=== PATIENT | female | born 2000 | race Caucasian/White ===

== ENCOUNTER 2022-11-29 21:47 | Outpatient (REF) | payer OTHER, SELFPAY ==
[2022-12-03 15:08] LABS: Age Gdln ACOG Testing Note (.); IGP, rfx Aptima HPV ASCU Note (.)
== END 2022-11-29 21:48 | disposition home or self-care (01) ==
LOC: LAB 21:47
PROVIDERS: Visit Provider Physician Assistant
DX: Z12.4 Encounter for screening for malignant neoplasm of cervix (principal)
CPT/HCPCS: G0145

== ENCOUNTER 2023-12-12 19:44 | Outpatient (REF) | payer OTHER, SELFPAY | END 2023-12-12 19:45 | disposition home or self-care (01) | LOC: LAB 19:44 | PROVIDERS: Visit Provider Obstetrics & Gynecology | DX: Z01.419 Encounter for gynecological examination (general) (routine) without abnormal findings (principal) | CPT/HCPCS: 88175 ==

== ENCOUNTER 2024-08-21 10:30 | Outpatient (OUT) | payer BC, SELFPAY ==
--- OUTSIDE RECORDS SUMMARY | 2024-08-21 10:54 | XMS_ITS | CCD ---
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 Name Role Phone JOANNA, DR VILLATORO Admitting Unavailable JOANNA, DR VILLATORO Attending Unavailable MISC, DR LAURA Primary Care Unavailable JOANNA, DR VILLATORO Admitting Unavailable JOANNA, DR VILLATORO Attending Unavailable MISC, DR LAURA Primary Care Unavailable JONANA, DR VILLATORO Consulting Unavailable JOANNA, DR VILLATORO Admitting Unavailable JOANNA, DR VILLATORO Consulting Unavailable JOANNA, DR IVLLATORO Attending Unavailable ZIEBER, DR LILIANE Jaimes Consulting Unavailable JOANNA, DR VILLATORO Admitting Unavailable JOANNA, DR VILLATORO Attending Unavailable JOANNA, DR VILLATORO Attending Unavailable JOANNA, DR VILLATORO Admitting Unavailable MISC, DR LAURA Primary Care Unavailable JOANNA, DR VILLATORO Consulting Unavailable JOANNA, DR VILLATORO Admitting Unavailable JOANNA, DR VILLATORO Attending Unavailable MISC, DR LAURA Primary Care Unavailable JOANNA, DR VILLATORO Consulting Unavailable MISC, DR LAURA Primary Care Unavailable JOANNA, DR VILLATORO Admitting Unavailable JOANNA, DR VILLATORO Attending Unavailable JOANNA, DR VILLATORO Consulting Unavailable KARASIK, DR ZIMMERMAN Admitting Unavailable KARASIK, DR ZIMMERMAN Attending Unavailable KARASIK, DR ZIMMERMAN Consulting Unavailable MISC, DR LAURA Primary Care Unavailable JOANNA, DR VILLATORO Admitting Unavailable JOANNA, DR VILLATORO Attending Unavailable MISC, DR LAURA Primary Care Unavailable JOANNA, DR VILLATORO Consulting Unavailable JOANNA, DR VILLATORO Admitting Unavailable JOANNA, DR VILLATORO Attending Unavailable JOANNA, DR VILLATORO Consulting Unavailable JOANNA, DR VILLATORO Admitting Unavailable JOANNA, DR VILLATORO Attending Unavailable MISC, DR LAURA Primary Care Unavailable Ritu Desai Primary Care Physician [phone] Ya Thornton Primary Care Physician Norberto, Ya L Admitting Unavailable Norberto, Ya L Attending Unavailable Agueda Gray Attending Unavailable Norberto, Ya L Attending Unavailable Norberto, Ya L Attending Unavailable Norberto, Ya L Attending Unavailable Norberto, Ya L Attending Unavailable Norberto, Ya L Attending Unavailable Norberto, Ya L Attending Unavailable OPAL LUZ Attending Unavailable Norberto, Ya L Admitting Unavailable Norberto, Ya L Attending Unavailable Norberto, Ya L Attending Unavailable Norberto, Ya L Admitting Unavailable Norberto, Ya L Attending Unavailable Norberto, Ya L Admitting Unavailable Norberto, Ya L Admitting Unavailable Norberto, Ya L Attending Unavailable Norberto, Ya L Admitting Unavailable Norberto, Ya L Attending Unavailable Norberto, Ya L Attending Unavailable Norberto, Ya L Referring Unavailable Norberto, Ya L Admitting Unavailable Carrillo White MD Primary Care Provider Carmita Jurado MD Unavailable CARMITA JURADO Referring Unavailable CARMITA JURADO Attending Unavailable Ya Thornton Primary Care Physician Marta Almanzar Attending Unavailable Marta Almanzar Admitting Unavailable Marta Almanzar Attending Unavailable Norberto, Ya L Admitting Unavailable Nancy Thorntonzabeth L Attending Unavailable Marta Almanzar Attending Unavailable Ham Robins Attending Unavailable Ham Robins Attending Unavailable Marta Almanzar Attending Unavailable Marta Almanzar Admitting Unavailable SANTOSH MARSHALL Attending Unavailable Medications Current Medications Medication Drug Class(es) Dates Sig (Normalized) Sig (Original) cephalexin 500 mg oral capsule (2 sources) Cephalosporin Antibacterial Start: 03-09-2023 End: 03-16-2023 take 1 capsule by mouth four times daily Keflex 500 mg Cap 500 mg = 1 cap(s), Oral, QID, X 7 day(s), # 28 cap(s), Refills(s) 0, Pharmacy: [facility] #37, 166, cm, 03/09/23 7:33:00 EST, Height/Length Dosing, 58.7, kg, 03/09/23 7:33:00 EST, Weight Dosing Start Date: 03/09/23 Stop Date: 03/16/23 Status: Ordered Colace (1 source) Start: 11-30-2022 Colace Refills(s) 0 Start Date: 11/30/22 Status: Ordered Flonase (3 sources) Corticosteroid Start: 09-10-2018 Flonase Nasal, Daily, Refill(s) 0 Start Date: 09/10/18 Status: Ordered hydrocortisone acetate 0.025 mg/mg / lidocaine hydrochloride 0.03 mg/mg rectal gel (2 sources) Antiarrhythmic, Corticosteroid, Amide Local Anesthetic Start: 11-19-2022 hydrocortisone-l idocaine 2.5%-3% rectal gel with applicator 1 carmen, Rectal, BID, 60 EA, Refill(s) 1, [facility] #[id number], 166, cm, 11/11/22 9:28:00 EDT, Height/Length Dosing, 59.4, kg, 11/11/22 9:28:00 EDT, Weight Dosing Start Date: 11/19/22 Status: Ordered Start: 11-11-2022 hydrocortisone -lidocaine 2.5%-3% rectal gel with applicator 1 carmen, Rectal, BID, 60 EA, Refill(s) 1, [facility] #[facility], 166, cm, 11/11/22 9:28:00 EDT, Height/Length Dosing, 59.4, kg, 11/11/22 9:28:00 EDT, Weight Dosing Start Date: 11/11/22 Status: Ordered levothyroxine sodium 0.1 mg oral tablet (19 sources) l-Thyroxine Start: 06-19-2024 take 1 tablet by mouth once daily Synthroid 100 mcg Tab 100 mcg = 1 tab(s), Oral, Daily, # 90 tab(s), Refills(s) 0, Pharmacy: [facility] #37, 166, cm, 08/08/23 15:44:00 EDT, Height/Length Dosing, 56.1, kg, 08/08/23 15:51:00 EDT, Weight Dosing Start Date: 06/19/24 Status: Ordered Quantity: 90.0 Unit: tab(s) Repeat number: 1 Start: 06-19-2024 take 1 tablet by stephanie th once daily levothyroxine (Synthroid, Levoxyl) 100 MCG tablet Take 100 mcg by mouth Daily 06/19/2024 Active Start: 05-16-2023 take 1 tablet by stephanie th once daily Synthroid 100 mcg Tab 100 mcg = 1 tab(s), Oral, Daily, # 90 tab(s), Refills(s) 1, Pharmacy: [facility] #37, 166, cm, 05/16/23 14:25:00 EST, Height/Length Dosing, 56.7, kg, 05/16/23 14:25:00 EST, Weight Dosing Start Date: 05/16/23 Status: Ordered Start: 02-07-2023 take 1 tablet by stephanie th once daily Synthroid 112 mcg Tab 112 mcg = 1 tab(s), Oral, Daily, # 60 tab(s), Refills(s) 0, Pharmacy: [facility] #[facility], 166, cm, 11/30/22 12:12:00 EDT, Height/Length Dosing, 58.8, kg, 11/30/22 12:12:00 EDT, Weight Dosing Start Date: 02/07/23 Status: Ordered Start: 10-08-2022 take 1 tablet by stephanie once daily Synthroid 112 mcg Tab 112 mcg = 1 tab(s), Oral, Daily, # 60 tab(s), Refills(s) 0, Pharmacy: [facility] #37, 166, cm, 10/08/22 15:10:00 EDT, Height/Length Dosing, 57.8, kg, 10/08/22 15:10:00 EDT, Weight Dosing Start Date: 10/08/22 Status: Ordered Start: 10-08-2022 End: 08-17-2024 take 1 tablet by mouth in the morning levothyroxine (Synthroid, Levoxyl) 112 MCG tablet Take 112 mcg by mouth in the morning. 10/08/2022 08/17/2024 Discontinued Start: 05-03-2022 take 1 tablet by stephanie th once daily levothyroxine 125 mcg (0.125 mg) Tab 125 mcg = 1 tab(s), Oral, Daily, # 90 tab(s), Refills(s) 3, Pharmacy: [facility] #37, 166, cm, 05/03/22 14:21:00 EST, Height/Length Dosing, 61.2, kg, 05/03/22 14:21:00 EST, Weight Dosing Start Date: 05/03/22 Status: Ordered loratadine 10 mg oral tablet (13 sources) Start: 12-05-2019 take 1 tablet by mouth once daily Claritin 10 mg Tab 10 mg, Oral, Daily, # 10 tab(s), Refills(s) 0, Pharmacy: [facility] #37, 166, cm, 12/05/19 13:03:00 EDT, Height/Length Dosing, 61.6, kg, 12/05/19 13:03:00 EDT, Weight Dosing Start Date: 12/05/19 Status: Ordered Quantity: 10.0 Unit: tab(s) Repeat number: 1 magnesium oxide 400 mg oral tablet (1 source) Start: 08-17-2024 End: 09-16-2024 take 1 tablet by mouth once daily magnesium oxide (Mag-Ox) 400 MG tablet Indications: Nonintractable headache, unspecified chronicity pattern, unspecified headache type Take 1 tablet (400 mg) by mouth Daily 30 tablet 6 08/17/2024 09/16/2024 Active nitrofurantoin, macrocrystals 25 mg / nitrofurantoin, monohydrate 75 mg oral capsule (2 sources) Nitrofuran Antibacterial Start: 02-21-2023 End: 02-26-2023 take 1 capsule by mouth every twelve hours Macrobid 100 mg Cap 100 mg = 1 cap(s), Oral, q12hr, X 5 day(s), # 10 cap(s), Refills(s) 0, Pharmacy: [facility] #37, 166, cm, 02/21/23 13:06:00 EST, Height/Length Dosing, 58.6, kg, 02/21/23 13:06:00 EST, Weight Dosing Start Date: 02/21/23 Stop Date: 02/26/23 Status: Ordered phenazopyridine hydrochloride 200 mg oral tablet (4 sources) Start: 03-09-2023 End: 03-12-2023 take 1 tablet by mouth three times daily Pyridium 200 mg Tab 200 mg = 1 tab(s), Oral, TID, X 3 day(s), # 9 tab(s), Refills(s) 0, Pharmacy: [facility] #37, 166, cm, 03/09/23 7:33:00 EST, Height/Length Dosing, 58.7, kg, 03/09/23 7:33:00 EST, Weight Dosing Start Date: 03/09/23 Stop Date: 03/12/23 Status: Ordered Start: 02-21-2023 End: 02-24-2023 take 1 tablet by mouth three times daily Pyridium 200 mg Tab 200 mg = 1 tab(s), Oral, TID, X 3 day(s), # 9 tab(s), Refills(s) 0, Pharmacy: [facility] #37, 166, cm, 02/21/23 13:06:00 EST, Height/Length Dosing, 58.6, kg, 02/21/23 13:06:00 EST, Weight Dosing Start Date: 02/21/23 Stop Date: 02/24/23 Status: Ordered polyethylene glycol 3350 635275 mg / potassium chloride 1480 mg / sodium bicarbonate 5720 mg / sodium chloride 53111 mg powder for oral solution (11 sources) Osmotic Laxative Start: 11-30-2022 NuLYTELY Lauren ry oral powder for reconstitution See Instructions, 1 EA, Refill(s) 0, Prior to colonoscopy., [facility] #[id number], 166, cm, 11/30/22 12:12:00 EDT, Height/Length Dosing, 58.8, kg, 11/30/22 12:12:00 EDT, Weight Dosing Start Date: 11/30/22 Status: Ordered Quantity: 1.0 Unit: EA Repeat number: 1 Problems Active Problems Problem Classification Problem Date Documented Da te Episodic/Chronic Abdominal pain (13 sources) Abdominal pain 09-29-2020 Episodic Bacterial infection; unspecified site (1 source) Infection due to Escherichia coli; Translations: [Unspecified Escherichia coli [E. coli] as the cause of diseases classified elsewhere] Onset: 03-24-2023 Episodic Diabetes or abnormal glucose tolerance complicating ; childbirth; or the puerperium (12 sources) History of gestational diabetes mellitus 10-08-2022 Episodic Genitourinary symptoms and ill-defined conditions (4 sources) Dysuria; Translations: [Dysuria] Onset: 02-21-2023 Episodic Headache; including migraine (13 sources) Migraine without aura 06-30-2020 Chronic Headache; including migraine (6 sources) Headache; Translations: [Nonintractable headache, unspecified chronicity pattern, unspecified headache type] 11-19-2020 Episodic Hemorrhoids (15 sources) Hemorrhoids; Translations: [Unspecified hemorrhoids] Onset: 11-11-2022 Episodic Immunizations and screening for infectious disease (2 sources) Encounter for screening for human papillomavirus (HPV); Translations: [Contact with and (suspected) exposure to infections with a predominantly sexual mode of transmission] Onset: 12-19-2020 Episodic Inflammation; infection of eye (except that caused by tuberculosis or sexually transmitteddisease) (4 sources) Hordeolum 10-08-2022 Episodic Menstrual disorders (15 sources) Dysmenorrhea; Translations: [Dysmenorrhea, unspecified] Onset: 08-08-2023 08-12-2020 Chronic Other endocrine disorders (4 sources) Hypoglycemia 10-08-2022 Chronic Other eye disorders (4 sources) Eye symptom 10-08-2022 Episodic Other female genital disorders (4 sources) Lesion of labia 05-16-2023 Episodic Other female genital disorders (1 source) Noninflammatory disorder of vulva; Translations: [Other specified noninflammatory disorders of vulva and perineum] Onset: 08-08-2023 Episodic Other gastrointestinal disorders (4 sources) Constipation 10-08-2022 Episodic Other gastrointestinal disorders (1 source) Digestive system finding; Translations: [Other specified symptoms and signs involving the digestive system and abdomen] Onset: 11-30-2022 Episodic Other gastrointestinal disorders (1 source) Constipation, unspecified; Translations: [Constipation, unspecified] Onset: 02-21-2023 Episodic Other inflammatory condition of skin (4 sources) Pruritus ani; Translations: [Pruritus ani] Onset: 11-30-2022 Episodic Other lower respiratory disease (13 sources) H/O: respiratory disease 06-30-2020 Episodic Other nutritional; endocrine; and metabolic disorders (12 sources) Weight loss 10-08-2022 Episodic Other nutritional; endocrine; and metabolic disorders (1 source) Abnormal weight loss; Translations: [Abnormal weight loss] Onset: 11-30-2022 Episodic Other and delivery including normal (18 sources) Encounter for supervision of normal first , first trimester; Translations: [Encounter for supervision of normal , unspecified, unspecified trimester] Onset: 12-02-2020 Episodic Other screening for suspected conditions (not mental disorders or infectious disease) (9 sources) Encounter for screening for malignant neoplasm of cervix; Translations: [Encounter for screening, unspecified] Onset: 12-09-2020 Episodic Residual codes; unclassified (3 sources) Body mass index 20-24 - normal; Translations: [Body mass index (BMI) 21.0-21.9, adult] Onset: 11-11-2022 Episodic Residual codes; unclassified (1 source) Family history of malignant neoplasm of digestive organ; Translations: [Family history of malignant neoplasm of digestive organs] Onset: 11-30-2022 Episodic Residual codes; unclassified (11 sources) Family history of cancer of colon 11-30-2022 Episodic Residual codes; unclassified (1 source) Family history of autism; Translations: [Family history of other mental and behavioral disorders] 05-14-2024 Episodic Thyroid disorders (20 sources) Hypothyroidism, unspecified; Translations: [Hypothyroidism] Onset: 02-28-2021 Chronic Thyroid disorders (5 sources) Disorder of thyroid, unspecified; Translations: [DISORDER OF THYROID UNSPECIFIED] Onset: 12-19-2020 Episodic Unclassified (13 sources) Body mass index 20-24 - normal 11-19-2020 Unclassified (13 sources) Non-smoker 06-30-2020 Unclassified (5 sources) Pain of knee region 09-29-2020 Unclassified (8 sources) Patient encounter status 10-08-2022 Unclassified (3 sources) Rectum finding 11-30-2022 Unclassified (8 sources) Finding of sensation of bladder 03-09-2023 Urinary tract infections (13 sources) Acute cystitis; Translations: [Acute cystitis without hematuria] Onset: 02-21-2023 Episodic Past or Other Problems Problem Classification Problem Date Documented Date Episodic/Chronic Other complications of (4 sources) Endocrine, nutritional and metabolic diseases complicating , unspecified trimester; Translations: [ENDOCRN NUTR MET DZ COMP PG UNS TRI] Onset: 02-24-2021 Episodic Other female genital disorders (4 sources) Other specified noninflammatory disorders of vagina; Translations: [OTH SPEC NONINFLAMMATORY D/O VAGINA] Onset: 07-13-2021 Episodic Results Test Name Value Interpretation Reference Range Facil ity HCG ( test) Ql (U)o n 08-17-2024 Interpretation and review of laboratory results Abnormal [facility] Preg Test, Ur Positive Negative [facility] US OB TRANSVAGINALon 025 US OB TRANSVAGINAL EXAM: US OB TRANSVAGINAL HISTORY: Dating. COMPARISON: None available. TECHNIQUE: Two-dimensional transvaginal grayscale ultrasound imaging of the pelvis was performed. Color Doppler evaluation of the ovaries was also performed. FINDINGS: The uterus demonstrates a normal homogeneous echotexture. The cervix measures 4.0 cm in length and the cervical os is closed. The right ovary measures 2.7 x 1.2 x 2.3 cm and demonstrates a normal echotexture. There is normal color Doppler flow. The left ovary measures 2.9 x 1.8 x 2.4 cm and demonstrates a normal echotexture. There is normal color Doppler flow. There is a presumed corpus luteal cyst visualized. No fluid is present within the cul-de-sac. There is a single, live intrauterine gestation identified with a heart rate of 173 beats per minute and a crown-rump length measurement of 2.1 cm, correlating to a gestational age of 8 weeks 5 days (+/- 5 days). There is no subchorionic hemorrhage visualized. A yolk sac is visualized. IMPRESSION: 1. Single, live intrauterine gestation 8 weeks, 6 days by LMP. Today's ultrasound measurements correlate with a gestational age of 8 weeks 5 days (+/- 5 days). RENATO by today's ultrasound is 03/24/2025. 2. Normal color Doppler evaluation of the bilateral ovaries. Interpreted by: Electronically signed by CLAY CARLIN II, MD, PHD at 20-Aug-2024 10:22:40 AM [facility] Normal Not Available Comment on above: Order Comment: US OB TRANSVAGINAL No LMP recorded. Urinalysis macro (dipstick) panel (U)on 08-17-2024 Bilirubin, UA Negative Negative - 4(7 0) +++ mg/dL [facility] Blood, UA Negative Negative - 50 Cedric/mcL [facility] Clarity, UA Clear [facility] Color, UA Yellow [facility] Glucose, UA Negative Negative - 1999(110) ++++ mg/dL [facility] Interpretation and review of laboratory results Normal [facility] Ketones, UA Negative Negative - 160(16) ++++ mg/dL [facility] Leukocytes, UA Negative Negative - 50 0+++ Ayana/mcL [facility] Nitrite, UA Negative Negative - Positive [facility] pH, UA 7 5 - 9 [facility] Protein, UA Negative Negative - 1999(20) ++++ mg/dL [facility] Spec Grav, UA 1.015 1 - 1.03 [facility] Urobilinogen, UA 0.2 0.2 - 12 mg/dL [facility] Ambulatory Visit Summaryon 0 - Ambulatory Visit Summary Ambulatory Visit Summary YANA CHURCH :2000 Visit Date:07/09/2024 Ambulatory Visit Instructions Your Diagnosis Establishing care with new doctor, encounter for Hypothyroidism Migraine without aura Non-smoker BMI 22.0-22.9, adult Your Care Team Attending Physician - Marta Rivas Primary Care Physician - Ya Wang This Is Your Medications List Contact prescribing physician if questions or concerns amoxicillin-clavulan ate (Augmentin 875 mg-125 mg Tab) levothyroxine (Synthroid 100 mcg Tab) Procedures Performed None. Discharge Vitals Heart Rate (Peripheral) 88 Respiratory Rate 16 Blood Pressure 100/64 Height 166 cm Height 65 in Weight 61.7 kg Weight 136.025 lb BMI 22.39 What to do next Scheduled Follow-Up Appointments Tuesday 8:40 AM EDT With: Marta Rivas Where: [facility] [address], [place] [address]- Medications What How Much When Why Instructions Unchanged amoxicillin-clavulan ate (Augmentin 875 mg-125 mg Tab) 1 Tablets By Mouth Every 12 hours Acute sinusitis Duration: 10 Days Contact prescribing physician if questions or concerns Unchanged levothyroxine (Synthroid 100 mcg Tab) 1 Tablets By Mouth Every day Contact prescribing physician if questions or concerns Allergies No Known Allergies Problems Ongoing - Any problem that you are currently receiving treatment for. Acute sinusitis BMI 22.0-22.9, adult Encounter for Papanicolaou smear for cervical cancer screening Family history of colon cancer Feeling of incomplete bladder emptying Hemorrhoids Hx gestational diabetes Hx of allergic rhinitis Hypothyroidism Labial skin tag Migraine without aura Non-smoker Recurrent UTI (urinary tract infection) Severe dysmenorrhea Subclinical hypothyroidism Weight loss Historical - Any problem that you are no longer receiving treatment for. Abdominal pain Patient Survey You may receive a survey via text or e-mail asking about your office visit. Please share your experience with us by completing your survey. We appreciate your feedback and thank you for choosing us for your care. Normal [facility] Family Medicine Office/Clini c Noteon 07-09-2024 Family Medicine Office/Clinic Note Family Medicine Office/Clinic Note Chief Complaint Establish care HPI Staff New to you former Ya Thornton patient. PHQ9 Score: 0 CARLITOS Score: 0 Current concerns: None. History of Present Illness I have reviewed and discussed the HPI (staff) with the patient today. Information was verified and is correct. Additional information provided if needed. Patient is new to [place]. Patient is here today for evaluation and overall feeling very well. She has no concerns to discuss today. Medical History: hypothyroidism- on synthroid 100mcg/day TSH: 3.09 mcIU/mL (07/04/24 11:18:00) Free T4 0.82 Migraines- not very often anymore, managed with tylenol Social History: Occupation: [employer] Family life: home with and daughter Diet: no restrictions Caffeine: 1 cup coffee/day Exercise: active lifestyle Alcohol use: denies Drug use: denies Smoking status: denies Health Maintenance: Routine labs: thyroid labs 06/2024, declines further labs Pap (21-64yo): 04/2023 Specialists: Mapping Supervisor: rosario Dentist: rosario OBGYN: Joanna Review of Systems PHQ Score Initial Depression Screen Score: 0 SCORE ROS: Constitutional: no fever, no chills, no sweats, no weakness, no body aches, no changes in weight without trying. Skin: no rash, no skin lesions, no petechiae. Eyes: no eye irritation/pain, no eye drainage, no vision changes. Ears: no ear pain, no ear drainage, no itching, no tinnitus. Nose: no rhinorrhea, no nasal congestion. Throat: no pain, no hoarseness. Respiratory: no shortness of breath, no cough, no orthopnea, no wheezing. Cardiovascular: no chest pain, no palpitations, no edema. Gastrointestinal: no nausea, no vomiting, no diarrhea, no bleeding, no abdominal pain. Genitourinary: no dysuria, no hematuria, no frequency, no urgency, no hesitancy, no small amount void, no suprapubic pain, no flank pain. Musculoskeletal: no back pain, no joint pain, no trauma. Neurological: no headache, no dizziness, no numbness/tingling, no weakness. Psychiatric: no sleeping problems, irritability, mood swings/depression Heme/Lymph: no bleeding tendency, bruising tendency, petechia, swollen/tender nodes Allergy/immunologic: no seasonal allergies, food allergies, recurrent infection, impaired immunity Physical Exam Vitals & Measurements HR: 88(Peripheral) RR: 16 BP: 100/64 SpO2: 98% HT: 166 cm HT: 65 in WT: 61.7 kg WT: 136.025 lb BMI: 22.39 PHYSICAL EXAM General: Well developed, well nourished, no apparent distress Head:Normocephalic, atraumatic Eyes:EOMI, sclera clear Nose:No deformity, discharge, inflammation or lesions Mouth:Mucosa moist. Normal oropharynx and posterior pharynx without lesions or exudate. Tongue normal. Neck:No bruit, symmetric Lungs:Lungs clear to auscultation Cardio:Regular rate and rhythm with no murmur Pulses:Pulses present in all four extremities Abdomen:Normal bowel sounds, non tender, no masses : not evaluated Musculoskeletal:Norm al ROM of extremities, self ambulating Neuro:grossly normal Skin:No abnormal skin lesions Lymph Nodes: No cervical lymphadenopathy Mental Status: Alert and cooperative with appropriate mood and affect Assessment/Plan 1. Establishing care with new doctor, encounter for (Z76.89: Persons encountering health services in other specified circumstances) - Discussed recommended screenings and testing for age and lifestyle risks: - Screening for hypertension with blood pressure checks - Screening for depression with PHQ tools - Vaccination recommendations reviewed - Screening for diabetes, vitamin deficiencies, thyroid disorders -Ordered labs today (CMP, CBC, TSH, lipids, PSA for males and other as needed testing) - Discuss Resources and Guidelines including proper diet and exercise. - Those with HTN, CAD, or PAD for example. recommendations regarding BP parameters and lipid control provided - Those with DM and obesity recommendations regarding labs including hgA1c, microalbumin, foot exams, eye exams, nutrition, weight, reviewed - Avoid tobacco and nicotine products and if indicated education provided smoking cessation - Referrals made regarding health maintenance recommendations for Colon Cancer screenings with colonoscopy vs Cologuard, bone density screening with DEXA scans,Breast cancer screening with mammograms, CT scans, AAA monitoring for smokers and high risk patients - PAP screening for females reviewed - Dental and Ophthalmology recommendations - Skin cancer screening recommendations - HIV, HPV, STD including gonorrhea chlamydia screening recommendations for those sexually active - if needed, health insurance requirements, health screenings for workplace, sports documentation submitted and reviewed Follow up 6 months 2. Hypothyroidism (E03.9: Hypothyroidism, unspecified) chronic stable - Continue levothyroxine 100 mcg once daily on an empty stomach away from other medications. Recheck TSH/T (more content not included)... Normal [facility] Comment on above: Result Comment: Elec tronically Signed By: Marta Rivas\.br\Date and Time Signed: 07/09/24 08:35 EDT Ambulatory Visit Summaryon 0 07-05-2024 Ambulatory Visit Summary Ambulatory Visit Summary YANA CHURCH :2000 Visit Date:07/05/2024 Ambulatory Visit Instructions Your Diagnosis Acute sinusitis BMI 22.0-22.9, adult Your Care Team Attending Physician - Julienne BARTLETT, Ham Montano Primary Care Physician - Norberto BARTLETT, Ya Alexandre This Is Your Medications List amoxicillin-clavulan ate (Augmentin 875 mg-125 mg Tab) levothyroxine (Synthroid 100 mcg Tab) Procedures Performed None. Discharge Vitals Heart Rate (Peripheral) 103 Blood Pressure 98/60 Height 166 cm Height 65 in Weight 61.2 kg Weight 134.923 lb BMI 22.21 What to do next Scheduled Follow-Up Appointments Tuesday 8:00 AM EDT With: Marta Rivas Where: [facility] [address] [place] [address], [place] [address]- Medications What How Much When Why Instructions New amoxicillin-clavulan ate (Augmentin 875 mg-125 mg Tab) 1 Tablets By Mouth Every 12 hours Acute sinusitis Duration: 10 Days Pickup at [facility] Unchanged levothyroxine (Synthroid 100 mcg Tab) 1 Tablets By Mouth Every day Pharmacy Information [facility]: [address] [place], [place] [id number] [phone] Allergies No Known Allergies Problems Ongoing - Any problem that you are currently receiving treatment for. Acute sinusitis BMI 21.0-21.9, adult Encounter for Papanicolaou smear for cervical cancer screening Family history of colon cancer Feeling of incomplete bladder emptying Hemorrhoids Hx gestational diabetes Hx of allergic rhinitis Hypothyroidism Labial skin tag Migraine without aura Non-smoker Recurrent UTI (urinary tract infection) Severe dysmenorrhea Subclinical hypothyroidism Weight loss Historical - Any problem that you are no longer receiving treatment for. Abdominal pain Patient Survey You may receive a survey via text or e-mail asking about your office visit. Please share your experience with us by completing your survey. We appreciate your feedback and thank you for choosing us for your care. Normal [facility] Family Medicine Office/Clini c Noteon 07-05-2024 Family Medicine Office/Clinic Note Family Medicine Office/Clinic Note Chief Complaint possible sinus infection HPI Staff complaints of _ Onset: 2 weeks Characteristics: possible sinus infection, had flu A a few weeks ago, still has a cough, feels it in back of throat and coughs up some yellow stuff, no fever OTC tried: tylenol severe sinus History of Present Illness Yana is a 24 year old female presenting for acute visit of headache, facial pressure, and yellow mucous for the last 2 weeks. She did have Flu A a few weeks ago and these symptoms lingered. She notes sinus pressure now post flu. She notes has a history of sinus infections. Fever/chills: none Sore throat: none Nasal congestion: yes Cough characteristics: productive Shortness of breath: none Fatigue: none Sinus pressure: yes Mucous characteristics: yellow OTC tried:tylenol severe sinus. Review of Systems PHQ Score Initial Depression Screen Score: 0 SCORE Physical Exam Vitals & Measurements HR: 103(Peripheral) BP: 98/60 SpO2: 99% HT: 65 in HT: 166 cm WT: 134.923 lb WT: 61.2 kg BMI: 22.21 General: Well developed, well nourished, in no acute distress Head: Normocephalic/atraum atic Eyes: Pupils equal, round, and reactive to light. Conjunctivae and sclerae normal, and extraocular movements intact Ears: No deformity or lesion of external ear. Canals and TM appear normal bilaterally. TM???s intact, not inflamed, with normal light reflex. Hearing grossly normal to conversational speech Nose: No deformity, discharge, inflammation, or lesions Mouth: Maxillary and frontal sinus tenderness noted. Mucous membranes moist. Normal oropharynx. mild erythema of posterior pharynx without lesions or exudates. Tongue normal Neck: Neck supple. No masses or palpable cervical nodes. Trachea midline. Thyroid without nodules, masses, tenderness, or enlargement Chest: No chest wall deformity, no chest wall tenderness Lungs: Normal respiratory effort and clear to auscultation Cardio: Regular rate and rhythm, normal S1 and S2, no murmur, no rub Neurologic: Grossly normal Skin: No rashes, ulcerations, or suspicious lesions Lymph Nodes: No cervical adenopathy, nodes normal Mental Status: Alert and oriented x3. Normal mood and affect Assessment/Plan 1. Acute sinusitis (J01.90: Acute sinusitis, unspecified) -start augmentin twice daily for 10 days. -symptom management with over the counter medications such as mucinex, tylenol, ibuprofen. -encouraged use of claritin or zyrtec OTC. -increase fluid intake as this will help to thin secretions. -humidifier usage encouraged. -nasal saline spray to moisten mucous membranes. Ordered: amoxicillin-clavulan ate, 1 tab(s), Oral, q12hr for 10 day(s), 20 tab(s), Refill(s) 0, [facility], 166, cm, 07/05/24 15:34:00 EDT, Height/Length Dosing, 61.2, kg, 07/05/24 15:41:00 EDT, Weight Dosing 2. BMI 22.0-22.9, adult (Z68.22: Body mass index [BMI] 22.0-22.9, adult) continue healthy diet and exercise. Total time spent preparing the chart, conducting of the encounter with the patient and family and time spent documenting, reviewing, and ordering tests was 25 minutes. Follow-up With When Contact Information Ham Pineda, [facility], [address], [address] [phone] Additional Instructions: as scheduled with Marta Patient Education Sinus Infection, Adult, [id number] How to Perform a Sinus Rinse, [id number] Problem List/Past Medical History Ongoing Acute sinusitis BMI 21.0-21.9, adult Encounter for Papanicolaou smear for cervical cancer screening Family history of colon cancer Feeling of incomplete bladder emptying Hemorrhoids Hx gestational diabetes Hx of allergic rhinitis Hypothyroidism Labial skin tag Migraine without aura Non-smoker Recurrent UTI (urinary tract infection) Severe dysmenorrhea Subclinical hypothyroidism Weight loss Historical Abdominal pain Procedure/Surgical History None. Medications Augmentin 875 mg-125 mg Tab, 1 tab(s), Oral, q12hr Synthroid 100 mcg Tab, 100 mcg= 1 tab(s), Oral, Daily Allergies No Known Allergies Social History Alcohol Current. Wine. 1-2 times per week., 07/05/2024 Substance Abuse Never. , 07/05/2024 Tobacco - Denies Tobacco Use, 02/04/2021 Never (less than 100 in lifetime) Tobacco Use:., 07/05/2024 Family History Diabetes mellitus type 2: Mother. Immunizations Vaccine Date Status Comments influenza virus vaccine, inactivated - Not Given Patient Refuses influenza virus vaccine, inactivated - Not Given Patient Refuses diphtheria/pertussis , acel/tetanus adult 05/26/2021 Recorded meningococcal group B vaccine 10/21/2015 Recorded meningococcal group B vaccine 09/15/2015 Recorded meningococcal conjugate vaccine 09/15/2015 Recorded diphtheria/pertussis , acel/tetanus adult 06/22/2010 Recorded meningococcal conjugate vaccine 06/22/2010 Recorded poliovirus vaccine, inactivated (more content not included)... Normal [facility] Comment on above: Result Comment: Elec tronically Signed By: Ham Pineda\.br\Date and Time Signed: 07/05/24 16:06 EDT CHEMISTRYOrdered By: SYSTEM SYSTEM on 07-04-2024 Free T4 [Mass/Vol] 0.82 ng/dL Normal 0.58 - 1.64 ng/dL Remisol Chem TSH Qn 3.09 m[IU]/L Normal 0.34 - 5.60 mcIU/mL Remisol Chem Free T4on 07-04-2024 Free T4 [Mass/Vol] 0.82 ng/dL Normal 0.58-1.64 [facility] Comment on above: Performed By: #### 2 [id number] #### [facility] [address] [place] [address] TSHon 07-04-2024 TSH Qn 3.09 m[IU]/L Normal 0.34-5.60 [facility] Comment on above: Performed By: #### 2 [id number] #### [facility] [address] [place] [address] DNA EXTRACTION AND HOLDon Method [employer] Puregene Reagents from [employer] Invalid Interpretation Code [facility] Comment on above: Order Comment: Relea se to patient->Automatic Nucleic Acid Concentration 273.2 ng/uL Invalid Interpretation Code [facility] Comment on above: Order Comment: Relea se to patient->Automatic Nucleic Acid Purity 1.90 Invalid Interpretation Code 1.70-2.10 [facility] Comment on above: Order Comment: Relea se to patient->Automatic Signature . Invalid Interpretation Code [facility] Comment on above: Order Comment: Relea se to patient->Automatic Storage and Special Instructions Invalid Interpretation Code [facility] Comment on above: Order Comment: Relea se to patient->Automatic Result Comment: The extracted DNA is stored in the [facility] at -70 degrees C and is being held for future testing. If there are any questions regarding this sample, please contact the [facility] at [phone]. Total DNA Yield 82.0 ug Invalid Interpretation Code [facility] Comment on above: Order Comment: Relea se to patient->Automatic Total Volume DNA 300 ul Invalid Interpretation Code [facility] Comment on above: Order Comment: Relea se to patient->Automatic IGP,APTIMA HPV,AGE GDLNon AGE GDLN ACOG TESTING Note . [facility] Comment on above: TESTS RESULT FLAG UN ITS REF RANGE LAB Clinician Provided Cytology Information Source.............Cervix;Endocervix No. of containers..01 ThinPrep Vial Age Ronaldo ASTORGA Francheska... FLAG LEGEND: L-Low Normal,H-High Normal,LL-Alert Low,HH-Alert High <-Panic Low,>-Panic High,A-Abnormal,AA-Critical Abnormal Performed at: 01 [facility] [place] [address] [place] [address] Sugey Torres MD, IGP, RFX APTIMA HPV ASCU Note . [facility] Comment on above: TESTS RESULT FLAG U NITS REF RANGE LAB DIAGNOSIS: 02 NEGATIVE FOR INTRAEPITHELIAL LESION OR MALIGNANCY. Specimen adequacy: 02 Satisfactory for evaluation. Endocervical and/or squamous metaplastic cells (endocervical component) are present. Performed by: 02 Yudy Rhoades, Stunner ([facility]) . 02 Note: Note 02 The Pap smear is a screening test designed to aid in the detection of premalignant and malignant conditions of the uterine cervix. It is not a diagnostic procedure and should not be used as the sole means of detecting cervical cancer. Both false-positive and false-negative reports do occur. Test Methodology: Note 02 This liquid based ThinPrep(R) pap test was screened with the use of an image guided system. . 02 The HPV DNA reflex criteria were not met with this specimen result therefore, no HPV testing was performed. FLAG LEGEND: L-Low Normal,H-High Normal,LL-Alert Low,HH-Alert High <-Panic Low,>-Panic High,A-Abnormal,AA-Critical Abnormal Performed at: [address] [address] Sugey Torres MD, Performed at: = - [facility] [id number] Equipment Superintendent: Sugey Torres MD, Phone: [phone] Performed at: [address] [id number] Equipment Superintendent: Sugey Torres MD, Phone: [phone] BRUSH-SPATULA CERVIX ENDOCERVIX [facility] Coding Summary.on 09-14-2023 Coding Summary. MFZRBvmq74TZg0fBm+PG hlYWQ+LS4YIDRvF14seL QrtF8fT3LGIDaKSagfDD PRVBaIIfRogvFlNF3lbN NjZXJu IC8+GH1qMXYwJdjnxLZs b6P9wPS3V85iaq4vGDrr yDO7RCCjNxOjcnjbv7qo pIe6HCvgMpjtBkZj ENDjeC02SSS1dL42La31 gTZbfENop1yefEx5PeFb EJZbNBG5qFucDIcuf7Cw KEAtT45zyIUlo3R5 IGNvbGxhcHNlOyBlbXB0 bF9gBIdkqdkmo4mbzdci Wwh8yi41oSHsf0K4gJU5 B0ObdzR4EQAmqBOw TleveNBJzN6ismexq5aq usvfQaSqXFLqVNr0OIc9 TKYwdBhoEbGfDN82MRL6 JTJrusKcO3TwDCQe yBjdVcE6e8K7Io8VJ4FN GczrE9MNLIIUYKtouXS+ JT59sp66Z4AoYipcYgq6 FBMrSXM6aQT1uN5w XYOaACteg3X0zEY8B8Ex bmEvay3fg4haYOFwXLko J12puVWbc8L8FVGghFR3 SFGbfGqeZhXpbH14 Oyc+WXRdqJpzk1QqWfzk k4kid1ezoTj3AhtiNWYk deRwqOzrNSY6p3PjYe9h GFDowEN4bBP9xP8s QkTnPsX7VMbdL045OoVo vVYcHzvlU72hV1CskPQ+ RVOiOyy3XKPbnIlsCY3z O3UzQOAbeosatXPg wFoiSE0vHSYgewadLEVi mB2jDBZfZ0b5PwAcHdZ8 IZjwF4GiKDSmhvvbHm61 bS5oVuZtLrV2ZXzf S0KncpB0YTVtyAQaHUqb HTJ6U23ef0P1BVRdDLTw WDQ5eDT1iT4sdMgphjyv bGVmdDsgdmVydGlj RFpvJVfhL467IVUxwNuo PkNvZGluZyBEYXRlOiAg MDYvMjYvMjAyNDwvdGQ+ GGOdPPL7tRliHADj cDFgAIzdGg1zaCmweZou IT4dWUWgotszHVEjxA2a LUMymPKemOknFG6nCTZh affbk234FrGyQZK5 CTHalTXaE6JukR4wMoUk MASmHSIiL2QufIQgUSrv V523EXpcAgC0DFXnbtLl O9OrYSBeoDqkBqA1 h6T5Bp4Py5VoupgcH1Bu sMGrPrBxMjhrPIn2G3Mi PjwvdHI+HY24KCCnQK25 KLf2NWA4gGoaFPce JJEaK8XwhK5pFaMaEVYj ZGRkOyc+PHRhYmxlIHdp ZHRoPScxMDAlJyBzdHls JD9yCs7jKSKlYYHj lSctpORhXcHin1vwFKMh JZtqMZ1qwWnrU3PqdGJ2 JAXxl6c8Ff16T69aL5Ld dXA+QHOnrKD4xDR6 gV6eJcFtKoQ3ZDffM509 GfXtqZYoDrsyb7saz0dr sYp0QgP3QTXhqqQrwQut OMI0t0SaGt82E16e IHdpZHRoPSIxNSUiIHZh nDrevw2yoU1wMm5+PGNv nHL5dHU6dZ2pMyRsEdB9 TUrqI635QmXypWWp Shkxl1rll9wyzLr9CuRb UPPkdcIhfQglDJF3i0Jf Ko49G6NoqAkvr7ZjPpy3 zh88kPQox9G3oNT0 C9WsYEOdevgndWKzjWyo DQ0uNAPffrguBGVovQ7l VCChU0j9RrGwTmE1HBbw U5NkvmR3KHUclSKs XEYumONDiT7fiiwqy6on eepeQjGgRILnYAb6GLv4 WXZyzGxcPqKwVYF4NxQ5 RVR4nCZdpB0suGdp fgrypC5yEwu+QCM1pDWd vJTXBC4yOaikoFQ+PHRk IKO4fGfaIRpvGIDokE1s AEDpY2h6RjJbMuY7 HTfyQ0ZluqI4YSEmiCJj MWCwkITSjY9vviogg4na xyzyEpOvGGCxCSo8HXd2 LWFsaWduOiBsZWZ0 HuE1BOZ2iOYpqD7wkTey oxoujS8tQxi+QmlydGgg QZQ1BCc6P6IlXov4JDBr jQrtFF7adFLxJMqb Rw1gwWeszEcuPF7hVFUm ptkia527YdMrx5chDBVi lSTgNLsdYSB9I05mg4X3 IJYnBGCiZQF4zGZ0 fO4hgDsjvjggxXXjxEgt dwRumRtgVWvtOTefI493 WHDrfNpwYuUuEFv3H3Xv Efm1FZSthVviVN5u rQAhTVwgOg5deEklvTfr FV9aQLOdjbger686PkCd f7xqNZErcAKoXCddNPB7 P39sl3J6QHFwUBPt DLJ4eAW7gS1zjAuutppu bGVmdDsgdmVydGljYWwt KEntD550BGKrmBcpZtUa zUa4Q5AmNhe2UTQy iZuvAT2ziICgEUguCq6s oVfrxFleOQ3sTNOhzzmp j138AjLmg8aaJRZvxCJg WTwiLPO0G14sz6Y6 MKViCTPoANJ3nKD2tE1b bGlnbjogbGVmdDsgdmVy gCciIFvlUNbbM894CRFz cDsnPlBhdGllbnQg KSepJNo4Y8FdGilgaEH+ AY97RSMoTP54nEWdvBDp a3cjwTj5KpDiUBYyLRW8 hHppUCxzl4UuKQVv M42hmEYhi1U6UIXwhSfx kSEkRfWfsXE0xZ2pXThz fpleu7wwkftjGhrix9nf yi84hQ83D30vNCei ZHRoPSIzMCUiIHZhbGln sd0rqC0kIa2+PGNvbCB3 dSZ1yV0zPUTmAyM3GRsb V907XmNbcSPyMzex b7aqw5heeFi9KjU8KJKm vqEdbZuyAVH0r5IfBs98 E82bBOlxFRPjYAHnCVBn DZQcqQemmw5hwT1f Ii8+DLQzuDV2lER9rX4s JuNiChI3HUllU309WaMh jYViNqiwF96dB4QpmRR+ UJYaPzw8NJKmnBcq YS7toLYiNKrlAt6vUDY0 FfYtBiDoRLyoW1NmHIKs gybfgeiplQE3TEOrFFCd nM22Cu5ouMdoBVIs qIKWqM0pkufzp6qvneka WxZeEDItUBw1JOg8NLTl pFzkArRrQJV3DmR6QGT0 kHXfsY1fwHpjqmil vG7vC4TyYAGykcszYs71 jQ1zSyIeHaN6PNqqZfn+ QlJPRUNLRUwsIFNJRVJS KTRUFV78YP49nXJk o2J2uDX4U9XpZKCtdcqb rasbxUX8FXNuSXRyiS99 gHToXVdiSq6qm0D7z979 KMRaUOIcdL61Xr7q mJdaMJPsiCYFtL1yomqu i3wpheppYqDaQLZnDUv5 YFe3PXXyfYwpNoJqGSA1 FpC1YUA4lUQkkE9i mYutxrhbnF4pQcz+MTAv JhmpRQe4PXokmIJ+PHRk CYI7sOrqDLdkYODumG6l ORBhJ0w5RlLuQgW8 NHeyP1NiEHAxibmkGk50 eY3eUwQqJtX1VSeqU0Ra jtB3FYQrcLXbYZmrAMI0 I68mk0U5ELUxAXNh QLP6yFC8iK7maJtmbvxh bGVmdDsgdmVydGljYWwt HOqjZ605OKWlgHopPnR1 WIfjUBGaDV11UH39 wGPpa7C8cWA0M5XxPASl rwaflhmjrVW8FUFkASVu iY54cBVeIZyxAi9cf1C9 b867CTYzDPCifF60 Nh2nzPklHQKgaJDEjX3b bsxji4frlbgcArBeJPAp NUi1LEx1ORIuqLezSoAz PHA2HdW5WNC2eRCx dO2nfXcxcelggV9fRgh+ YtDhWAtySE07LY55kWFs v5R3rWQ3B5WaWGVkftzp qagmcXD9XZMsYEFc eV83mDMxMRdgSw0nk7S7 r924ASBeCWBhjF62Xo4v nVlcWTPljPVGpW3czets f6eajjdkPbSsTWNz IPk3GGk3BBPrcWcwLaQz BFL1HjO4JZT8nSDiaB6c fXllmsmgvW6jWlt+T3V0 hNE8iAJmnGgxpYW+ PB24ha83E2JxLbphHwl8 NQMbKLL3oGP7vY5wMVUr GEoxu3N2tHJ8W6PwigRw xo9jv6ojEZKvOJvv U73foPAci0Y7CRUjfKU3 GSKssUjmRtVrzS23Rwv+ DOQkfTrzk3LuEhcof0zc p4wfjNe1RwZrUUIx rmGyfLqaFXK4i5SmDo19 D94hFHnmACSoVTDjAHMr KOKozHmnaq2vsL7yWg1+ MSLhwWI7sPT6lA7u NgFcMeJ2ZLukG266TgWt oNIhQrdwm1ihk9adxXh0 IjIwJSIgdmFsaWduPSJ0 o3FxIo91G9BsqTgl l7McYxk9se08bUCmu3Q3 wYE7S0YoPGLhybcyvPSg xXtfPJ4qHGZioenhWHIb rV2oUSNsK9m4RtUz CeQ8CAdvM1WquaU3LBWp rZPzKJMqbXLMdB2tfsnw h2stwgllTeVvMOVhJAl6 FTg0LFAovGmaCnRp ETL2CjJ9SZQ8dNZupS3z iUdvvkeddT2qXms+UGh5 k0rkdXEbPH0mkHR1HZ28 SU58pUKdh6O5kBP7 E4JfNVYnmoflvzzjbUV6 XXIcITRacQ32Jt8mvJtv Vn3aHGXmUNU9TQOuqQYf J9YjpB4qFgSqRYEs PLCrY8HisKXrXLaqX788 CLqoBbU4OKOachMlA7Fm UXLdzJktIuD9q8K4Kw8S HM61IK44XZ84dEYq d8Q2aOM0K3ZlEFSclyzd qqmheHY1TSMgAPFmtK42 Dq7pnFdyQh0sYVFeLQH0 NAZndRJmA1QohP4z TlMtTZGcVAJiI0TjsCCz VNkfC016YVciAsE4DYXx oqXaO9ZuCJGamMasJrK0 n9F3Os0MBq37YZ17 DP34vLHhd5R0dZU0W4Cm APOqoedatlhyuOD1JSMi NKViuN64Zw8awEbnDq2m OPBuLVY9JTPhmCJg T6VdoY1tSpYkYTAuDFRx K7HmbUAgVScuB582FDbb YcM0PBPzgpXqR1ZcBCRh rPjtUiI7t9V6Xa9U XNmcphi5H0BwZlaouMK+ GM53BTSrGD52bFJdsHKt l9knyDs9RjWfELXsCPX8 qNnwYHuzf1KdXCIu N31scKZae3Q1G (more content not included)... Normal [facility] CHEMISTRYOrdered By: SYSTEM SYSTEM on 09-07-2023 Free T4 [Mass/Vol] 0.92 ng/dL Normal 0.58 - 1.64 ng/dL Remisol Chem TSH Qn 3.37 m[IU]/L Normal 0.34 - 5.60 mcIU/mL Remisol Chem Consent for Treatmenton 08-19 Consent for Treatment [id number] #[id number] Normal [facility] Free T4on 09-07-2023 Free T4 [Mass/Vol] 0.92 ng/dL Normal 0.58-1.64 [facility] Comment on above: Performed By: #### 2 [id number] #### [facility] [address] [place] [address] TSHon 09-07-2023 TSH Qn 3.37 m[IU]/L Normal 0.34-5.60 [facility] Comment on above: Performed By: #### 2 [id number] #### [facility] [address] [place] [address] Ambulatory Visit Summaryon 0 08-08-2023 Ambulatory Visit Summary LILIANAEDUARDO MONTENEGROLoreto Jaimes :2000 Visit Date:08/08/2023 Ambulatory Visit Instructions Your Diagnosis Hypothyroidism Recurrent UTI (urinary tract infection) Your Care Team Attending Physician - Ya Wang Primary Care Physician - Ya Wang This Is Your Medications List Contact prescribing physician if questions or concerns Misc Prescription (Glucose Test Strips) Misc Prescription (Lancets) levothyroxine (Synthroid 100 mcg Tab) loratadine (Claritin 10 mg Tab) polyethylene glycol 3350 with electrolytes (NuLYTELY Paige oral powder for reconstitution) Procedures Performed None. Discharge Vitals Heart Rate (Peripheral) 103 Respiratory Rate 18 Blood Pressure 124/60 Height 166 cm Height 65 in Weight 56.1 kg Weight 123.42 lb BMI 20.36 What to do next You Need to Complete the Following UA with Cult Rflx, Urine, Clean Catch, Routine collect, 08/08/23, Order for future visit, Nurse collect, Recurrent UTI (urinary tract infection), Print Label By Order Location Medications What How Much When Instructions Unchanged levothyroxine (Synthroid 100 mcg Tab) 1 Tablets By Mouth Every day Contact prescribing physician if questions or concerns Unchanged loratadine (Claritin 10 mg Tab) 10 Milligram By Mouth Every day Contact prescribing physician if questions or concerns Unchanged Misc Prescription (Glucose Test Strips) See instructions Glucose Test Strips Contact prescribing physician if questions or concerns Unchanged Misc Prescription (Lancets) See instructions Lancets Contact prescribing physician if questions or concerns Unchanged polyethylene glycol 3350 with electrolytes (NuLYTELY Paige oral powder for reconstitution) See instructions Prior to colonoscopy. Contact prescribing physician if questions or concerns Allergies No Known Allergies Problems Ongoing - Any problem that you are currently receiving treatment for. BMI 21.0-21.9, adult Encounter for Papanicolaou smear for cervical cancer screening Family history of colon cancer Feeling of incomplete bladder emptying Hemorrhoids Hx gestational diabetes Hx of allergic rhinitis Hypothyroidism Labial skin tag Migraine without aura Non-smoker Recurrent UTI (urinary tract infection) Severe dysmenorrhea Subclinical hypothyroidism Weight loss Historical - Any problem that you are no longer receiving treatment for. Abdominal pain Patient Survey You may receive a survey via text or e-mail asking about your office visit. Please share your experience with us by completing your survey. We appreciate your feedback and thank you for choosing us for your care. Normal [facility] Family Medicine Office/Clini c Noteon 08-08-2023 Family Medicine Office/Clinic Note Chief Complaint f/u for hypothyroid and weight loss Pt. states she has been feeling better History of Present Illness Patient is here for f/u for hypothyroidism last TSH TSH: 0.9 mcIU/mL (03/22/23 09:52:00) T3 Free: 2.9 (03/22/23) T4 Free: 1.1 ng/dL (03/22/23) Compliant with medication. Is taking on an empty stomach. Current medication dose: levothyroxine 100 mcg daily Pt denies sx of memory loss, increased weight, menorrhagia, skin/hair dryness, mental slowness, increased tiredness, intolerance to cold, raised BP, energy loss, depression, slow reflexes or constipation at this time. Cancelled with urology - hx of recurrent UTIs- did pap in Apr 2022- labial skin tag noted after tear during vaginal delivery Dr Marshall- saw her and saw the tissue near the vaginal opening - he states to keep an eye on it and she has not had any urinary tract infections- sometimes Her menstrual cycles are much more controlled after her child regular and milder, she will continue to follow with Dr. Marshall no constipation or diarrhea, hx of hemorrhoids- no issues. saw Agueda in Nov 30 2022 - Review of Systems PHQ Score Initial Depression Screen Score: 0 SCORE Physical Exam Vitals & Measurements HR: 103(Peripheral) RR: 18 BP: 124/60 SpO2: 100% HT: 65 in HT: 166 cm WT: 56.1 kg WT: 123.42 lb BMI: 20.36 General: alert, no acute distress, well appearing, _pleasant, young female. Skin: warm, dry, intact Head: no trauma, normocephalic Neck: Trachea midline, no adenopathy, no tenderness Eye: normal conjunctiva, sclera clear, _PERRLA ENMT: oral mucosa moist, no pharyngeal erythema or exudate, normal dentition Cardiovascular: regular rate and rhythm, normal peripheral perfusion, no edema Respiratory: Lungs CTA, respirations non labored Chest wall: no deformity, non tender Gastrointestinal: soft, non distended, no tenderness, no guarding. Back: No tenderness, Normal ROM, Normal alignment. Extremities: no deformity, no trauma Neurological: oriented x 4, LOC appropriate for age, CN II-XII intact, motor strength equal & normal bilaterally, sensation equal & normal bilaterally, speech normal Psychiatric: cooperative? , affect appropriate for age? , normal? judgement, normal? psychiatric thoughts. Assessment/Plan 1. Hypothyroidism (E03.9: Hypothyroidism, unspecified) Chronic _ control Weight is stable Asymptomatic Due for labs SEPTEMBER 2023 - ordered Continue Levothyroxine 100 mcg daily Orders placed F/u in February for annual Ordered: Free T4 Thyroid Stimulating Hormone 2. Recurrent UTI (urinary tract infection) (N30.81: Other cystitis with hematuria) resolved , standing order for UA with reflex culture if needed Referral to urology closed Ordered: Comprehensive Metabolic Panel UA with Cult Rflx 3. Hemorrhoids (K64.9: Unspecified hemorrhoids) Resolved, no additional complaints. saw [facility] for screening colonoscopy/diagnost ic colonoscopy due to constipation Does not plan on going back at this time Ordered: CBC w/ Auto Diff 4. Labial skin tag (N90.89: Other specified noninflammatory disorders of vulva and perineum) Present on last pap pelvic exam chronic since childbirth Will plan for removal at this time, continue to monitor for symptoms 5. Severe dysmenorrhea (N94.6: Dysmenorrhea, unspecified) Her menstrual cycles are much more controlled after her child regular and milder, she will continue to follow with Dr. Joanna perrin CBC Portions of this record may have been created with voice recognition artificial intelligence software, specifically [email or web address], [employer] and or [employer]. Substitutions may have occurred due to the inherent limitations of voice recognition and artificial intelligence software. Total time spent preparing the chart, conducting of the encounter with the patient and family and time spent documenting, reviewing, and ordering tests was 25 minutes. Follow-up No qualifying data available Patient Education Dysmenorrhea Hemorrhoids Urinary Tract Infection, Adult Hypothyroidism Problem List/Past Medical History Ongoing BMI 21.0-21.9, adult Encounter for Papanicolaou smear for cervical cancer screening Family history of colon cancer Feeling of incomplete bladder emptying Hemorrhoids Hx gestational diabetes Hx of allergic rhinitis Hypothyroidism Labial skin tag Migraine without aura Non-smoker Recurrent UTI (urinary tract infection) Severe dysmenorrhea Subclinical hypothyroidism Weight loss Historical Abdominal pain Procedure/Surgical History None. Medications Claritin 10 mg Tab, 10 mg, Oral, Daily Glucose Test Strips, See Instructions, 3 refills Lancets, See Instructions, 3 refills NuLYTELY Paige oral powder for reconstitution, See Instructions Synthroid 100 mcg Tab, 100 mcg= 1 tab(s), Oral, Daily, 1 refills Allergies No Known Allergies Social History Alcohol Curren (more content not included)... Normal [facility] Comment on above: Result Comment: Elec tronically Signed By: Ya Wang\.irvin\Date and Time Signed: 08/08/23 16:26 EDT Patient Educationon 08-08-19 Patient Education Endocrinology Hypothyroidism Hypothyroidism is when the thyroid gland does not make enough of certain hormones. This is called an underactive thyroid. The thyroid gland is a small gland located in the lower front part of the neck, just in front of the windpipe (trachea). This gland makes hormones that help control how the body uses food for energy (metabolism) as well as how the heart and brain function. These hormones also play a role in keeping your bones strong. When the thyroid is underactive, it produces too little of the hormones thyroxine (T4) and triiodothyronine (T3). What are the causes? This condition may be caused by: ? Adolfo's disease. This is a disease in which the body's disease-fighting system (immune system) attacks the thyroid gland. This is the most common cause. ? Viral infections. ? . ? Certain medicines. ? defects. ? Problems with a gland in the center of the brain (pituitary gland). ? Lack of enough iodine in the diet. Other causes may include: ? Past radiation treatments to the head or neck for cancer. ? Past treatment with radioactive iodine. ? Past exposure to radiation in the environment. ? Past surgical removal of part or all of the thyroid. What increases the risk? You are more likely to develop this condition if: ? You are female. ? You have a family history of thyroid conditions. ? You use a medicine called lithium. ? You take medicines that affect the immune system (immunosuppressants) . What are the signs or symptoms? Common symptoms of this condition include: ? Not being able to tolerate cold. ? Feeling as though you have no energy (lethargy). ? Lack of appetite. ? Constipation. ? Sadness or depression. ? Weight gain that is not explained by a change in diet or exercise habits. ? Menstrual irregularity. ? Dry skin, coarse hair, or brittle nails. Other symptoms may include: ? Muscle pain. ? Slowing of thought processes. ? Poor memory. How is this diagnosed? This condition may be diagnosed based on: ? Your symptoms, your medical history, and a physical exam. ? Blood tests. You may also have imaging tests, such as an ultrasound or MRI. How is this treated? This condition is treated with medicine that replaces the thyroid hormones that your body does not make. After you begin treatment, it may take several weeks for symptoms to go away. Follow these instructions at home: ? Take wkyh-dvs-xfjtuun and prescription medicines only as told by your health care provider. ? If you start taking any new medicines, tell your health care provider. ? Keep all follow-up visits as told by your health care provider. This is important. ? As your condition improves, your dosage of thyroid hormone medicine may change. ? You will need to have blood tests regularly so that your health care provider can monitor your condition. Contact a health care provider if: ? Your symptoms do not get better with treatment. ? You are taking thyroid hormone replacement medicine and you: ? Sweat a lot. ? Have tremors. ? Feel anxious. ? Lose weight rapidly. ? Cannot tolerate heat. ? Have emotional swings. ? Have diarrhea. ? Feel weak. Get help right away if: ? You have chest pain. ? You have an irregular heartbeat. ? You have a rapid heartbeat. ? You have difficulty breathing. These symptoms may be an emergency. Get help right away. Call 911. ? Do not wait to see if the symptoms will go away. ? Do not drive yourself to the hospital. Summary ? Hypothyroidism is when the thyroid gland does not make enough of certain hormones (it is underactive). ? When the thyroid is underactive, it produces too little of the hormones thyroxine (T4) and triiodothyronine (T3). ? The most common cause is Adolfo's disease, a disease in which the body's disease-fighting system (immune system) attacks the thyroid gland. The condition can also be caused by viral infections, medicine, , or past radiation treatment to the head or neck. ? Symptoms may include weight gain, dry skin, constipation, feeling as though you do not have energy, and not being able to tolerate cold. ? This condition is treated with medicine to replace the thyroid hormones that your body does not make. This information is not intended to replace advice given to you by your health care provider. Make sure you discuss any questions you have with your health care provider. Document Revised: 03/09/2022 Document Reviewed: 03/09/2022 [employer] Patient Education ? 2022 [employer]. Gastroenterology Hemorrhoids Hemorrhoids are swollen veins in and around the rectum or anus. There are two types of hemorrhoids: ? Internal hemorrhoids. These occur in the veins that are just inside the rectum. They may poke through to the outside and become irritated and painful. ? External hemorrhoids. These occur in the veins that are (more content not included)... Normal [facility] PAP [id number] 05-20-2023 C. trachomatis rRNA FRANSISCO+probe Ql (Cvx) Negative Invalid Interpretation Code Negative [facility] Comment on above: Performed By: #### 1 [id number] ####[facility] [address] [place] [address] Cytology report Cyto stain Doc (Cvx/Vag) Note Invalid Interpretation Code [facility] Comment on above: Result Comment: TEST S RESULT FLAG UNITS REF RANGE LAB Clinician Provided Cytology Information Source.............Cervix No. of containers..01 ThinPrep Vial DIAGNOSIS: 01 NEGATIVE FOR INTRAEPITHELIAL LESION OR MALIGNANCY. Specimen adequacy: 01 Satisfactory for evaluation. Endocervical and/or squamous metaplastic cells (endocervical component) are present. Performed by: 01 Erum Mckenzie, Stunner ([facility]) . 01 Note: Note 01 The Pap smear is a screening test designed to aid in the detection of premalignant and malignant conditions of the uterine cervix. It is not a diagnostic procedure and should not be used as the sole means of detecting cervical cancer. Both false-positive and false-negative reports do occur. Test Methodology: Note 01 This liquid based ThinPrep(R) pap test was screened with the use of an image guided system. HPV Genotype Reflex Note 01 Criteria not met, HPV Genotype not performed. FLAG LEGEND: L-Low Normal,H-High Normal,LL-Alert Low,HH-Alert High <-Panic Low,>-Panic High,A-Abnormal,AA-Critical Abnormal Performed at: [address] [facility] [place] [address] Sugey Torres MD, Performed By: #### 1 [id number] ####[facility] [address] [place] [address] HPV 16+18+31+33+35+39+45 +51+52+56+58+59+66+6 8 DNA Probe+sig amp Ql (Cvx) Negative Invalid Interpretation Code Negative [facility] Comment on above: Result Comment: This nucleic acid amplification test detects fourteen high-risk HPV types (16,18,31,33,35,39,45,51,52,56,58,59,66,68) without differentiation. Performed By: #### 1 [id number] ####[address] [place] [address] N. gonorrhoeae rRNA FRANSISCO+probe Ql (Cvx) Negative Invalid Interpretation Code Negative [facility] Comment on above: Performed By: #### 1 [id number] ####[address] [place] [address] T. vaginalis rRNA FRANSISCO+probe Ql (Unsp spec) Negative Invalid Interpretation Code Negative [facility] Comment on above: Result Comment: Perf ormed at: [facility] [id number] MD Brian Mayes Performed at: =[facility] [place] [address] [place], [place] [id number] MD Brian Mayes Performed By: #### 1 [id number] ####[address] [address] Family Medicine Office/Clini c Noteon 05-16-2023 Family Medicine Office/Clinic Note Chief Complaint Pap, f/u UTI HPI Staff Patient here today for annual gynecological exam (PAP). Last Menses- Last pap- 2 years ago History of Present Illness Patient is here for PAP today G 1 P 1 A 0 Menstrual cycles- normal LMP- due very soon Flow- normal heavy first few days, then light last few Pain- minimal to moderate Methods used to help with s/s- Motrin. Tylenol, Midol, heating pads, after much improved. Sexual preferences- heterosexual, vaginal Partners Hx- minimal STD hx- no abnormal paps in the past?- no PCOS Hx- no Breast exam- Do you preform SBE- NO Any abnormal findings- no any nipple drainage or pain- no Fam Hx of breast Cancer or Ovarian- - Grandmother and Aunt. Review of Systems PHQ Score Initial Depression Screen Score: 0 SCORE Physical Exam Vitals & Measurements T: 36.7 ?C(Temporal Artery) HR: 98(Peripheral) BP: 108/72 SpO2: 99% HT: 65 in HT: 166 cm WT: 56.7 kg WT: 124.74 lb BMI: 20.58 General Exam: Constitutional: alert, no acute distress, well hydrated, well developed, well nourished. Skin: normal color, no rashes, no lesions, no unusual bruising. Head: atraumatic, normocephalic. Eyes: EOM intact, no nystagmus, no icterus. Ears: no external deformities, gross hearing intact. Mouth: normal dentition Neck: supple, no adenopathy, no masses, thyroid normal size, no thyroid tenderness or nodules. Breasts: skin/areolae normal, no masses, no nipple discharge, no erythema/warmth/tend erness, axillae normal. Cardiovascular: RRR, no murmurs, no gallops, no edema. Respiratory: no respiratory distress. Abdomen: nondistended, nontender, no guarding, no masses. Spine: normal mobility, no deformities. Extremities: no deformities, no clubbing, no cyanosis, no edema. Neurol: normal, cranial nn II-XII grossly intact, sensation intact, motor intact, station & gait normal. Psych: oriented to all spheres, affect and mood appropriate, normal interaction, good eye contact. Pelvic exam was performed without the assistance of medical biller/coder as witness Pelvic Exam: Vulva: normal appearance, normal hair distribution, no lesions or masses. -Except mild additional skin tissue noted to the 4 o'clock position with a slight flap type structure, may be from previous Episiotomy repair, non tender Urethra: normal, no masses, non-tender, no discharge. Bladder: normal, non-tender, non-distended. Vagina: normal, rugated, physiologic discharge, no lesions, no masses, adequate pelvic support. Cervix: normal, there is mild central erythema and clear mucous drainage noted from cervix , midposition, no motion tenderness, no lesions. Uterus: smooth, mobile, non-tender, adequate support, anteverted. Adnexa: normal, no masses, mobile, nontender. Assessment/Plan 1. Encounter for Papanicolaou smear for cervical cancer screening (Z12.4: Encounter for screening for malignant neoplasm of cervix) Recommendations: -USPSTF recommend screening for cervical cancer in women age 21 to 65 years with cytology/Pap smear every 3 years or for women age 30-65 he would like to lengthen the screening interval, screening with combination of cytology and HPV testing every 5 years is recommended -If requested or patient is higher risk STD screen screening will be tested as well -The USPSTF recommends against screening for cervical cancer in women who have had a hysterectomy with removal of cervix and have not had high-grade precancerous screenings in the past -The USPS TF recommends against screening for cervical cancer over the age of 65 and have not had any high risk screenings and discontinuation can be done after 65 - After PAP- You may have some bleeding and cramping & you can take Tylenol or Motrin for cramps ? Symptoms postcoital bleeding, cervical abnormality, postmenopausal abnormal uterine bleeding How do I prepare for this test? ? Be aware of where you are in your menstrual cycle. If you are menstruating on the day of the test, you may be asked to reschedule. ? You may need to reschedule if you have a known vaginal infection on the day of the test. ? Follow instructions from your health care provider about: ? Changing or stopping your regular medicines. Some medicines can cause abnormal test results, such as vaginal medicines and tetracycline. ? Avoiding douching 2?3 days before or the day of the test. Follow up every 3-5 years based on results [employer] OPERATOR referral if needed for further testing or guidance Ordered: PAP [id number] CT/GC/Trich HPV rflx Genotype 2. BMI 21.0-21.9, adult (Z68.21: Body mass index [BMI] 21.0-21.9, adult) BMI is within goal range. Continue well balanced diet and portion control. Continue to exercise as tolerated to maintain weight 3. Subclinical hypothyroidism (E03.9: Hypothyroidism, unspecified) Chronic lower Synthroid to 100 mcg daily land recheck in 8 weeks. weight is down 5 lbs. - Asymptomatic- TSH and T 4 ordered Orders placed F/u 6 months (more content not included)... Normal [facility] Comment on above: Result Comment: Elec tronically Signed By: Ya Wang\.irvin\Date and Time Signed: 05/16/23 15:38 EST PAP [id number] 05-16-2023 Gynecological Body Site CERVIX Normal [facility] Comment on above: Performed By: #### 1 [id number] ####[facility] [address] [place] [address] Patient Educationon 05-16-19 Patient Education Obstetrics and Gynecology Pap Test Why am I having this test? A Pap test, also called a Pap smear, is a screening test to check for signs of: ? Infection. ? Cancer of the cervix. The cervix is the lower part of the uterus that opens into the vagina. ? Changes that may be a sign that cancer is developing (precancerous changes). Women need this test on a regular basis. In general, you should have a Pap test every 3 years until you reach menopause or age 65. Women aged 30?60 may choose to have their Pap test done at the same time as an HPV (human papillomavirus) test every 5 years (instead of every 3 years). Your health care provider may recommend having Pap tests more or less often depending on your medical conditions and past Pap test results. What is being tested? Cervical cells are tested for signs of infection or abnormalities. What kind of sample is taken? Your health care provider will collect a sample of cells from the surface of your cervix. This will be done using a small cotton swab, plastic spatula, or brush that is inserted into your vagina using a tool called a speculum. This sample is often collected during a pelvic exam, when you are lying on your back on an exam table with your feet in footrests (stirrups). In some cases, fluids (secretions) from the cervix or vagina may also be collected. How do I prepare for this test? ? Be aware of where you are in your menstrual cycle. If you are menstruating on the day of the test, you may be asked to reschedule. ? You may need to reschedule if you have a known vaginal infection on the day of the test. ? Follow instructions from your health care provider about: ? Changing or stopping your regular medicines. Some medicines can cause abnormal test results, such as vaginal medicines and tetracycline. ? Avoiding douching 2?3 days before or the day of the test. Tell a health care provider about: ? Any allergies you have. ? All medicines you are taking, including vitamins, herbs, eye drops, creams, and zsgj-feh-tvszfak medicines. ? Any bleeding problems you have. ? Any surgeries you have had. ? Any medical conditions you have. ? Whether you are or may be . How are the results reported? Your test results will be reported as either abnormal or normal. What do the results mean? A normal test result means that you do not have signs of cancer of the cervix. An abnormal result may mean that you have: ? Cancer. A Pap test by itself is not enough to diagnose cancer. You will have more tests done if cancer is suspected. ? Precancerous changes in your cervix. ? Inflammation of the cervix. ? An STI (sexually transmitted infection). ? A fungal infection. ? A parasite infection. Talk with your health care provider about what your results mean. In some cases, your health care provider may do more testing to confirm the results. Questions to ask your health care provider Ask your health care provider, or the department that is doing the test: ? When will my results be ready? ? How will I get my results? ? What are my treatment options? ? What other tests do I need? ? What are my next steps? Summary ? In general, women should have a Pap test every 3 years until they reach menopause or age 65. ? Your health care provider will collect a sample of cells from the surface of your cervix. This will be done using a small cotton swab, plastic spatula, or brush. ? In some cases, fluids (secretions) from the cervix or vagina may also be collected. This information is not intended to replace advice given to you by your health care provider. Make sure you discuss any questions you have with your health care provider. Document Revised: 06/05/2021 Document Reviewed: 06/05/2021 [employer] Patient Education ? 2022 [employer] Oncology Cancer Screening for Women A cancer screening is a test or exam that checks for cancer. Your health care provider will recommend specific cancer screenings based on your age, medical history (including risk factors), and family history of cancer. Work with your health care provider to create a cancer screening schedule that protects your health. Who should have screening? All women should be considered for screening of certain cancers, including breast cancer, cervical cancer, colorectal cancer, and skin cancer. Your health care provider may recommend screenings for other types of cancer if: ? You had cancer before. ? You have a family member with cancer. ? You have abnormal genes that could increase the risk of cancer. ? You have risk factors for certain cancers, such as current or past use of tobacco products, or being overweight. When you should be screened for cancer depends on: ? Your age. ? Your medical history and your family's medical history. ? Certain lifestyle factors, such as smoking or other use of tobacco products. ? Environmental exposure, such as to asbestos. How i (more content not included)... Normal [facility] Consent for Treatmenton Consent for Treatment [phone] [id number] #1.00TIFF Normal [facility] UA With Cult Reflexon 2023 Bilirubin Ql (U) Negative Normal Negative [facility] Comment on above: Performed By: #### 1 [id number] ####[facility] [address] [place] [address] Clarity (U) CLEAR Normal Clear [facility] Comment on above: Performed By: #### 1 [id number] ####[facility] [address] [place] [address] Color (U) YELLOW Normal Yellow [facility] Comment on above: Performed By: #### 1 [id number] ####[facility] [address] [place] [address] Epithelial cells.squamous LM.HPF (Urine sed) [#/Area] 0-2 Normal 0-2 [facility] Comment on above: Performed By: #### 1 [id number] ####[facility] [address] [place] [address] Glucose Test strip (U) [Mass/Vol] Negative Normal Negative [facility] Comment on above: Performed By: #### 1 [id number] ####[facility] [address] [place] [address] Hemoglobin Ql (U) Negative Normal Negative [facility] Comment on above: Performed By: #### 1 [id number] ####[facility] [address] [place] [address] Ketones (U) [Mass/Vol] Negative Normal Negative [facility] Comment on above: Performed By: #### 1 [id number] ####[address] [place] [address] Mckenna.plasma/Lithi um.RBC (Bld) [Mass ratio] 0-3 Normal 0-3 [facility] Comment on above: Performed By: #### 1 [id number] ####[address] [address] Nitrite Ql (U) Negative Normal Negative [facility] Comment on above: Performed By: #### 1 [id number] ####[address] [address] pH (U) 6.0 [pH] Invalid Interpretation Code 5.0-9.0 [facility] Comment on above: Performed By: #### 1 [id number] ####[address] [address] Protein (U) [Mass/Vol] Negative Normal Negative [facility] Comment on above: Performed By: #### 1 [id number] ####[address] [address] Specific gravity (U) [Rel density] >=1.030 Invalid Interpretation Code 1.005-1.030 [facility] Comment on above: Performed By: #### 1 [id number] ####[address] [address] Type of Urine collection method Clean Catch Normal [facility] Comment on above: Performed By: #### 1 [id number] ####[address] [address] Urobilinogen Qn (U) 0.2 {Mehdi'U}/dL Normal 0.0-1.0 [facility] Comment on above: Performed By: #### 1 [id number] ####[facility] [address] [place] [address] WBC Auto Ql (U) Negative Normal Negative [facility] Comment on above: Performed By: #### 1 [id number] ####[facility] [address] [place] [address] WBC LM.HPF (Urine sed) [#/Area] 0-5 Normal 0-5 [facility] Comment on above: Performed By: #### 1 [id number] ####[facility] [address] [place] [address] URINALYSISOrdered By: Alphonso Wang on 03-24-2023 Bilirubin Ql (U) Negative (03/24/23 11:15 AM) Normal Negative [facility] UA Auto SS Clarity (U) Clear (03/24/23 11:15 AM) Normal Clear [facility] UA Auto SS Color (U) Yellow (03/24/23 11:15 AM) Normal Yellow [facility] UA Auto SS Epithelial cells.squamous LM.HPF (Urine sed) [#/Area] 0-2 /HPF Normal 0-2/HPF [facility] UA Auto SS Glucose Test strip (U) [Mass/Vol] Negative (03/24/23 11:15 AM) Normal Negative [facility] UA Auto SS Hemoglobin Ql (U) Negative (03/24/23 11:15 AM) Normal Negative [facility] UA Auto SS Ketones (U) [Mass/Vol] Negative (03/24/23 11:15 AM) Normal Negative [facility] UA Auto SS Mckenna.plasma/Lithi um.RBC (Bld) [Mass ratio] 0-3 /HPF Normal 0-3/HPF [facility] UA Auto SS Nitrite Ql (U) Negative (03/24/23 11:15 AM) Normal Negative [facility] UA Auto SS pH (U) 6.0 *NA* (03/24/23 11:15 AM) Invalid Interpretation Code 5.0 - 9.0 [facility] UA Auto SS Protein (U) [Mass/Vol] Negative (03/24/23 11:15 AM) Normal Negative [facility] UA Auto SS Specific gravity (U) [Rel density] >=1.030 *NA* (03/24/23 11:15 AM) Invalid Interpretation Code 1.005 - 1.030 [facility] UA Auto SS UA Spec Desc Clean Catch (03/24/23 11:15 AM) Normal [facility] UA Auto SS Urobilinogen Qn (U) 0.4427391 {Mehdi'U}/dL Normal 0.0 - 1.0 EU/dL [facility] [place] UA Auto SS WBC Auto Ql (U) Negative (03/24/23 11:15 AM) Normal Negative [facility] [place] UA Auto SS WBC LM.HPF (Urine sed) [#/Area] 0-5 /HPF Normal 0-5/HPF [facility] [place] UA Auto SS T3 Freeon 03-23-2023 Free T3 [Mass/Vol] 2.9 pg/mL Invalid Interpretation Code 2.0-4.4 [facility] Comment on above: Result Comment: Perf ormed at: [facility] [address] [id number] PhD Haider Barraza Performed By: #### 2 [id number] ####[facility] [address] [place] [address] US Retroperitoneal Completeo n 03-23-2023 US Retroperitoneal Complete Exam Date/Time: 03/22/2023 09:49 EST Reason for Exam: R39.14;Abdominal pain Report IMPRESSION: NEGATIVE RENAL ULTRASOUND. NEGATIVE URINARY BLADDER. CLINICAL HISTORY: Abdominal pain, R39.14 COMPARISON: NONE. FINDINGS: Urinary bladder is smoothly marginated and well-defined. Bilateral ureteral jets identified on color flow. Prevoid urinary bladder volume 155 mL. Post void urinary bladder volume 24 mL. Right kidney measures 10.5 x 5.7 x 5.0 cm. Left kidney measures 10.9 x 4.7 x 4.8 cm. Both kidneys normal in size, shape, echogenicity, color flow. No hydronephrosis, calculi, cortical thinning, cystic/solid masses, bilateral kidneys. Ordering Provider: Ya Thornton FINAL REPORT Dictated: 03/23/2023 10:18 am Isidoro Taylor MD Signed (Electronic Signature): 03/23/2023 10:18 am Signed by: Isidoro Taylor MD Transcribed by: RAZIA Technologist: HW Normal [facility] CHEMISTRYOrdered By: SYSTEM SYSTEM on 03-22-2023 Free T4 [Mass/Vol] 1.10 ng/dL Normal 0.58 - 1.64 ng/dL Remisol Chem TSH Qn 0.90 m[IU]/L Normal 0.34 - 5.60 mcIU/mL Remisol Chem Consent for Treatmenton Consent for Treatment [id number] #[id number] Normal [facility] Free T4on 03-22-2023 Free T4 [Mass/Vol] 1.10 ng/dL Normal 0.58-1.64 [facility] Comment on above: Performed By: #### 2 [id number] ####[facility] [address] [place] [address] TSHon 03-22-2023 TSH Qn 0.90 m[IU]/L Normal 0.34-5.60 [facility] Comment on above: Performed By: #### 2 [id number] ####[facility] [address] [place] [address] C Urineon 03-11-2023 Bacteria identified Cx Nom (U) Microbiology PROCEDURE: Urine Culture [R1] SOURCE: U CleanCatch BODY SITE: COLLECTED DATE/TIME: 03/09/2023 08:03 EST RECEIVED DATE/TIME: 03/09/2023 16:49 EST START DATE/TIME: 03/09/2023 16:49 EST FREE TEXT SOURCE: Ya Wang, Ya Alexandre FINAL REPORTS Final Report [] Verified Date/Time: 03/11/2023 09:34 EST 30,000 cfu/ml Streptococcus agalactiae (Group B) Presumptive Penicillin is the drug of choice for Beta Hemolytic Streptococci Isolates. Routine susceptibility testing on Beta Hemolytic Streptococcus isolates is no longer performed. Susceptibilities will continue to be performed on Isolates from sterile body fluids and serious wound infections. Performing Locations R1: This test was performed at: [facility], [address] [place] [address], [id number], Normal [facility] Comment on above: Performed By: #### 2 [id number] ####[facility] [address] [facility] [place] [address] Family Medicine Office/Clini c Noteon 03-11-2023 Family Medicine Office/Clinic Note Chief Complaint 2 wk f/u HPI Staff Reason for Visit: 2 wk f/u for UTI. Pt has been on 2 antibiotic and still having issues with pressure Symptoms: Pressure, unable to fully empty bladder, burning after urination. Depression: Done 2 weeks ago, not needed CARLITOS: N/A Last Labs done: 10/08/2022 Covid Vaccine: No Flu Vaccine: No Smoker: Non smoker Pap (21-64yo): Due in 5 months, Done elsewhere History of Present Illness Patient presents today for recurrent UTI. Symptoms started: 2 weeks ago Patient reports: dysuria, pressure, urinary retention, right lower back pain near the pelvic area. Patient denies fever, nausea/vomiting/diar jena/constipation, foul odor, discharge, pruritus, hematuria. Patient denies excessive intake of spicy foods, soft drinks, caffeine, douching, recent use of steroids or being immunocompromised at this time. Sexually active: Yes, with her , denies any new sexual partners. She abstained from sexual activity since the onset of her UTI because she was anxious about the symptoms. Contraceptives: _ LMP: Unknown, not currently menstruating. STD concerns: No Remedies trialed: AZO History of UTIs/kidney stones/BPH: No history of kidney stones or recurrent UTIs. Antibiotics within last 30 days: Yes Yana Church is a 23-year-old female who is here today for continued UTI complaints including bladder pressure, urinary retention, and dysuria. The urine culture and sensitivity test for her showed a positive result for Escherichia coli. It demonstrated no resistance and was found to be susceptible to all tested antibiotics. She finished a whole course of Macrobid, and she was given a prescription for Bactrim for an additional 5 days. She confirms that she also completed her Bactrim course. Her pain is better than what it was before she started on the antibiotics. She notes mild benefit from Pyridium as well. However, she still experiences dysuria and urinary retention. She denies any new sex toys, soaps, creams, lotions, powders. She has not used bathtubs nor hot tubs. She is not menstruating currently. She does not believe she is . She denies any nausea, breast tenderness, or other symptoms of . Her water intake is adequate. She already increased her water intake and juice. She notes an extensive family history of gallbladder issues in the women on both paternal and maternal sides of her family. She wonders if her UTI symptoms could be due to her gallbladder. She saw a wharfmaster in 11/2022. She is able to schedule an appointment as her insurance did go through. She will undergo a colonoscopy due to hemorrhoids. She does not have any upper gastrointestinal symptoms, so she will not be undergoing an EGD. Her thyroid function was last checked in 09/2022. Her Synthroid dosage was decreased at that time. She has a 2-year-old child. UA in office today shows: Negative glucose, bilirubin, ketones, protein, nitrates. Trace blood. Positive leukocyte esterase trace, pH 6.0, specific gravity 1.020, urine bilirubin 0.2. Negative test. Review of Systems The pertinent positive and negative findings are as noted in the HPI. Physical Exam Vitals & Measurements T: 36.4 ?C(Oral) HR: 91(Peripheral) RR: 18 BP: 108/60 SpO2: 100% HT: 65 in HT: 166 cm WT: 58.7 kg WT: 129.14 lb BMI: 21.3 General: Alert, young female, no acute distress, well appearing, pleasant Skin: Warm, dry, intact Head: No trauma, normocephalic Neck: Trachea midline, no adenopathy, no tenderness Eye: Normal conjunctiva, sclera clear, PERRLA ENMT: TM's clear, oral mucosa moist, no pharyngeal erythema or exudate, normal dentition Cardiovascular: Normal peripheral perfusion, normal skin tone and color, normal pulses. Respiratory: No respiratory distress, good respiratory effort and good expansion. Chest wall: No deformity, nontender Gastrointestinal: Some tenderness to the right lower quadrant and suprapubic area with no rebound tenderness or guarding. Negative Turcios's sign and negative CVA tenderness bilaterally. Back: No tenderness, normal ROM, normal alignment. Extremities: No deformity, no trauma Neurological: Oriented x 4, LOC appropriate for age, CN II-XII intact, motor strength equal & normal bilaterally, sensation equal & normal bilaterally, speech normal Psychiatric: Cooperative, affect appropriate for age, normal judgement, normal psychiatric thoughts Assessment/Plan 1. BMI 21.0-21.9, adult (Z68.21: Body mass index [BMI] 21.0-21.9, adult) BMI is within goal range. Continue well balanced diet and portion control. Continue to exercise as tolerated to maintain weight 2. Feeling of incomplete bladder emptying (R39.14: Feeling of incomplete bladder emptying) #3 3. Other cystitis with hematuria (N30.81: Other cystitis with hematuria) We will refer her to urology. We will prescribe Keflex 4 times daily for a week and another 3 days of Pyridium. UA in office today shows: Negat (more content not included)... Normal [facility] Comment on above: Result Comment: Elec tronically Signed By: Ya Wang\.br\Date and Time Signed: 03/11/23 06:06 EST\.br\Electronically Co-Signed By: Annetta Blackburn\.br\Date and Time Co-Signed: 03/09/23 12:22 EST Ambulatory Visit Summaryon 1 05-10-2022 Ambulatory Visit Summary LILIANAYANET MONTENEGROHERNESTO Jaimes :2000 Visit Date:03/09/2023 Ambulatory Visit Instructions Your Diagnosis BMI 21.0-21.9, adult Feeling of incomplete bladder emptying Other cystitis with hematuria Hypothyroidism Tests Performed Urnls Dip Stick Auto w/o Microscopy POC 95008 Your Care Team Attending Physician - Ya Wang Primary Care Physician - Ya Wang This Is Your Medications List Misc Prescription (Glucose Test Strips) Misc Prescription (Lancets) cephalexin (Keflex 500 mg Cap) levothyroxine (Synthroid 112 mcg Tab) loratadine (Claritin 10 mg Tab) phenazopyridine (Pyridium 200 mg Tab) polyethylene glycol 3350 with electrolytes (NuLYTELY Paige oral powder for reconstitution) Procedures Performed None. Discharge Vitals Temperature (Oral) 36.4 ?C Heart Rate (Peripheral) 91 Respiratory Rate 18 Blood Pressure 108/60 Height 166 cm Height 65 in Weight 58.7 kg Weight 129.14 lb BMI 21.3 What to do next Scheduled Follow-Up Appointments Tuesday 10:00 AM EDT With: Ya Wang Where: [facility] Normal Recurrent UTI (urinary tract infection), pp_set_radiology_ subspecialty, [facility]\.br\ Medications\.br\ What How Much When Why Instructions\.br\ New cephalexin (Keflex 500 mg Cap) 1 Capsules By Mouth 4 times a day Feeling of incomplete bladder emptying Recurrent UTI (urinary tract infection) Duration: 7 Days Pickup at [facility]\.br\ New phenazopyridine (Pyridium 200 mg Tab) 1 Tablets By Mouth 3 times a day Feeling of incomplete bladder emptying Recurrent UTI (urinary tract infection) Duration: 3 Days Pickup at [facility]\.br\ Unchanged levothyroxine (Synthroid 112 mcg Tab) 1 Tablets By Mouth Every day Subclinical hypothyroidism\.b r\ Unchanged loratadine (Claritin 10 mg Tab) 10 Milligram By Mouth Every day\.br\ Unchanged Misc Prescription (Glucose Test Strips) See instructions Glucose Test Strips \.br\ Unchanged Misc Prescription (Lancets) See instructions Lancets \.br\ Unchanged polyethylene glycol 3350 with electrolytes (NuLYTELY Paige oral powder for reconstitution) See instructions Prior to colonoscopy. \.br\ Pharmacy Information\.br\ [facility]: [address] [place], [place] [id number] [phone]\.br\ Test Results\.br\ Urnls Dip Stick Auto w/o Microscopy POC 94780 (03/09/2023)\.br\ Bilirubin Urine Dipstick - Negative\.br\ Blood Urine Dipstick - Trace-intact\.br\ Glucose Urine Dipstick - Negative\.br\ Ketones Urine Dipstick - Negative\.br\ Leukocytes Urine Dipstick - Trace\.br\ Nitrite Urine Dipstick - Negative\.br\ Protein Urine Dipstick - Negative\.br\ Specific [place] Urine Dipstick - 1.020\.br\ Urine Appearance Urine Dipstick - Slightly cloudy\.br\ Urine Color Urine Dipstick - Dark yellow\.br\ Urobilinogen Urine Dipstick - Normal 0.2-1 EU/dl\.br\ pH Urine Dipstick - 6\.br\ Allergies\.br\ No Known Allergies\.br\ Problems\.br\ Ongoing - Any problem that you are currently receiving treatment for.\.br\ BMI 21.0-21.9, adult\.br\ Family history of colon cancer\.br\ Feeling of incomplete bladder emptying\.br\ Hemorrhoids\.br\ Hx gestational diabetes\.br\ Hx of allergic rhinitis\.br\ Hypothyroidism\.b r\ Migraine without aura\.br\ Non-smoker\.br\ Recurrent UTI (urinary tract infection)\.br\ Severe dysmenorrhea\.br\ Subclinical hypothyroidism\.b r\ Weight loss\.br\ Historical - Any problem that you are no longer receiving treatment for.\.br\ Abdominal pain\.br\ Patient Survey\.br\ You may receive a survey via text or e-mail asking about your office visit. Please share your experience with us by completing your survey. We appreciate your feedback and thank you for choosing us for your care.\.br\ Education Materials\.br\ Urodynamic Testing\.br\ \.br\ Urodynamic tests are done to determine how well your lower urinary tract is working. The lower urinary tract includes your bladder and the part of your body that drains urine from the bladder (urethra).\.br\ When your kidneys filter your blood, urine is stored in your bladder until you feel the urge to urinate. Urination requires coordination between the nerves and muscles of your bladder and urethra. When your lower urinary tract is working well, you should be able to:\.br\ ? \.br\ Start urinating when your bladder is full.\.br\ ? \.br\ Empty your bladder completely.\.br\ ? \.br\ Control the flow of your urine.\.br\ Why do I need urodynamic testing?\.br\ You may need urodynamic testing to help find the cause of any of these problems:\.br\ ? \.br\ Leaking urine (incontinence).\. br\ ? \.br\ Problems starting or stopping your urine flow.\.br\ ? \.br\ Frequent or painful urination.\.br\ ? \.br\ Frequent urinary tract infections.\.br\ ? \.br\ Being unable to empty your bladder completely.\.br\ ? \.br\ Having strong urges to pass urine (urgency).\.br\ ? \.br\ Having a weak flow of urine.\.br\ What are the risks?\.br\ Generally, these tests are safe. However, some of the tests have risks, including:\.br\ ? \.br\ Discomfort.\.br\ ? \.br\ Frequent urge to urinate.\.br\ ? \.br\ Bleeding.\.br\ ? \.br\ Infection.\.br\ ? \.br\ Allergic reactions to medicines or dyes (contrast material).\.br\ What happens before the test?\.br\ ? \.br\ Ask your health care provider about changing or stopping your regular medicines. This is especially important if you are taking diabetes medicines or blood thinners.\.br\ ? \.br\ You may be asked to avoid urinating before coming to the test so that you arrive with a full bladder.\.br\ ? \.br\ Tell a health care provider about:\.br\ ? \.br\ Any allergies you have.\.br\ ? \.br\ All medicines you are taking, including vitamins, herbs, eye drops, creams, and zjbz-tlg-mesqqqm medicines.\.br\ ? \.br\ Whether you are or may be .\.br\ What happens during the test?\.br\ You may have various urodynamic tests. The tests may be done separately or may all be done during one visit. You may be given an antibiotic medicine before or after testing to help prevent infection.\.br\ The types of tests that may be done include:\.br\ Uroflowmetry\.br\ This test measures how much urine you pass and how long it takes to pass.\.br\ ? \.br\ You will urinate into a certain type of toilet or device (flowmeter).\.br\ ? \.br\ The device will measure the volume and the time of your urine flow.\.br\ ? \.br\ These measurements will be sent to a computer that creates a graph of your urine flow.\.br\ Postvoid residual measurement\.br\ This test measures how much urine is left in your bladder after you urinate.\.br\ ? \.br\ The test may be done with ultrasound. In this method, sound waves and a computer will be used to create an image of your bladder.\.br\ ? \.br\ The test can also be done by inserting a thin, flexible tube (catheter) into your bladder after you urinate. The remaining urine will be removed through the catheter so it can be measured.\.br\ ? \.br\ Remaining urine will be measured in milliliters (mL). If you have more than 100 mL left in your bladder after you urinate, your bladder is not emptying as it should.\.br\ Cystometric testing\.br\ This test uses a type of bladder catheter that can measure pressure.\.br\ ? \.br\ You may be given a medicine to numb the area (local anesthetic).\.br\ ? \.br\ The area around the opening of your urethra will be cleaned.\.br\ ? \.br\ A urinary catheter will be passed through your urethra into your bladder and used to empty your bladder completely.\.br\ ? \.br\ A measuring catheter will be placed, and your bladder will be filled with warm, germ-free (sterile) water.\.br\ ? \.br\ Pressure measurements will be taken:\.br\ ? \.br\ As your bladder fills.\.br\ ? \.br\ When you feel the need to urinate.\.br\ ? \.br\ As your bladder is emptied.\.br\ ? \.br\ You may be asked to cough or bear down to check for leakage.\.br\ ? \.br\ In some cases, your bladder may be filled with a material that shows up on X-rays (contrast material) so that X-ray pictures can be taken during the test.\.br\ Electromyogram\.b r\ This test measures the electrical activity of the nerves and muscles of your bladder and the opening of your urethra.\.br\ ? \.br\ Sticky patches (electrodes) will be placed near your rectum and urethra to measure electrical activity.\.br\ ? \.br\ The measurements will show how well your nerves are communicating with your muscles.\.br\ What [facility] Patient Educationon 03-09-20 Patient Education Endocrinology Hypothyroidism Hypothyroidism is when the thyroid gland does not make enough of certain hormones. This is called an underactive thyroid. The thyroid gland is a small gland located in the lower front part of the neck, just in front of the windpipe (trachea). This gland makes hormones that help control how the body uses food for energy (metabolism) as well as how the heart and brain function. These hormones also play a role in keeping your bones strong. When the thyroid is underactive, it produces too little of the hormones thyroxine (T4) and triiodothyronine (T3). What are the causes? This condition may be caused by: ? Adolfo's disease. This is a disease in which the body's disease-fighting system (immune system) attacks the thyroid gland. This is the most common cause. ? Viral infections. ? . ? Certain medicines. ? defects. ? Problems with a gland in the center of the brain (pituitary gland). ? Lack of enough iodine in the diet. Other causes may include: ? Past radiation treatments to the head or neck for cancer. ? Past treatment with radioactive iodine. ? Past exposure to radiation in the environment. ? Past surgical removal of part or all of the thyroid. What increases the risk? You are more likely to develop this condition if: ? You are female. ? You have a family history of thyroid conditions. ? You use a medicine called lithium. ? You take medicines that affect the immune system (immunosuppressants) . What are the signs or symptoms? Common symptoms of this condition include: ? Not being able to tolerate cold. ? Feeling as though you have no energy (lethargy). ? Lack of appetite. ? Constipation. ? Sadness or depression. ? Weight gain that is not explained by a change in diet or exercise habits. ? Menstrual irregularity. ? Dry skin, coarse hair, or brittle nails. Other symptoms may include: ? Muscle pain. ? Slowing of thought processes. ? Poor memory. How is this diagnosed? This condition may be diagnosed based on: ? Your symptoms, your medical history, and a physical exam. ? Blood tests. You may also have imaging tests, such as an ultrasound or MRI. How is this treated? This condition is treated with medicine that replaces the thyroid hormones that your body does not make. After you begin treatment, it may take several weeks for symptoms to go away. Follow these instructions at home: ? Take yjzr-kpc-bvftzvl and prescription medicines only as told by your health care provider. ? If you start taking any new medicines, tell your health care provider. ? Keep all follow-up visits as told by your health care provider. This is important. ? As your condition improves, your dosage of thyroid hormone medicine may change. ? You will need to have blood tests regularly so that your health care provider can monitor your condition. Contact a health care provider if: ? Your symptoms do not get better with treatment. ? You are taking thyroid hormone replacement medicine and you: ? Sweat a lot. ? Have tremors. ? Feel anxious. ? Lose weight rapidly. ? Cannot tolerate heat. ? Have emotional swings. ? Have diarrhea. ? Feel weak. Get help right away if: ? You have chest pain. ? You have an irregular heartbeat. ? You have a rapid heartbeat. ? You have difficulty breathing. These symptoms may be an emergency. Get help right away. Call 911. ? Do not wait to see if the symptoms will go away. ? Do not drive yourself to the hospital. Summary ? Hypothyroidism is when the thyroid gland does not make enough of certain hormones (it is underactive). ? When the thyroid is underactive, it produces too little of the hormones thyroxine (T4) and triiodothyronine (T3). ? The most common cause is Adolfo's disease, a disease in which the body's disease-fighting system (immune system) attacks the thyroid gland. The condition can also be caused by viral infections, medicine, , or past radiation treatment to the head or neck. ? Symptoms may include weight gain, dry skin, constipation, feeling as though you do not have energy, and not being able to tolerate cold. ? This condition is treated with medicine to replace the thyroid hormones that your body does not make. This information is not intended to replace advice given to you by your health care provider. Make sure you discuss any questions you have with your health care provider. Document Revised: 03/09/2022 Document Reviewed: 03/09/2022 [employer] Patient Education ? 2022 [employer]. Obstetrics and Gynecology Urinary Tract Infection, Adult A urinary tract infection (UTI) is an infection of any part of the urinary tract. The urinary tract includes the kidneys, ureters, bladder, and urethra. These organs make, store, and get rid of urine in the body. An upper UTI affects the ureters and kidneys. A lower UTI affects the bl (more content not included)... [facility] Physician Referralon 023 Physician Referral [id number] #[id number] [facility] Provider Letteron 03-02-2023 Provider Letter March 02, 2023 YANA CH[address]CH [address] [place] [id number] : [address] Clay Waters is know on your insurance & we are able to schedule your EGD & Colonoscopy. Please call us at [phone] [facility] to schedule your [facility]. Thank you for your prompt attention to this matter. Sincerely, [facility] [place] [facility] Reminderson 03-02-2023 Reminders - From: Erum Gold To: [facility] - Reminders/Recalls; Sent: 11/30/2022 12:34:03 EDT Show up: 11/30/2022 12:34:00 EDT Subject: Ambulatory Reminder [employer] Reminder/Recall Call pt and scheduled EGD and Colonoscopy with Dr. Williamson once [employer] is approved. - From: Rusty Alfred ([facility] - Reminders/Recalls) To: Yue Perez; Sent: 12/28/2022 12:15:30 EDT ! Show up: 12/28/2022 12:15:00 EDT I called patient and left message for her to call the office back to schedule her procedure. Patient came in today and had an insurance change. Her [employer] will be inactive as of January 18 and she will have [employer]. Patient is aware of wait time for insurance to get credentialed. New insurance added to chart and insurance card was scanned in. I sent letter to patient to call office to schedule Normal [facility] C Urineon 02-23-2023 Bacteria identified Cx Nom (U) Microbiology PROCEDURE: Urine Culture [R1] SOURCE: U CleanCatch BODY SITE: COLLECTED DATE/TIME: 02/21/2023 13:14 EST RECEIVED DATE/TIME: 02/21/2023 16:00 EST START DATE/TIME: 02/21/2023 16:00 EST FREE TEXT SOURCE: Ya Wang, Ya Alexandre FINAL REPORTS Final Report [] Verified Date/Time: 02/23/2023 10:58 EST 10,000 cfu/ml Escherichia coli isolated. 10,000 cfu/ml Streptococcus agalactiae (Group B) Presumptive isolated. Penicillin is the drug of choice for Beta Hemolytic Streptococci Isolates. Routine susceptibility testing on Beta Hemolytic Streptococcus isolates is no longer performed. Susceptibilities will continue to be performed on Isolates from sterile body fluids and serious wound infections. SUSCEPTIBILITY RESULTS LEGEND: S=Susceptible, N/R=Not Reported, Blank=Data not available, or drug not advisable or tested, I=Intermediate, ESBL=Extended spectrum beta-lactamase, R=Resistant, TFG=Thymidine-depend ent strain, STEVEN=Beta-lactamase positive, CHRIS=mcg/m;(mg/L), S*=Predicted susceptible interp, R*=Predicted resistant interp EC Antibiotic CHRIS Dilutn CHRIS Interp Amikacin <=16 S Ampicillin <=8 S Ampicillin/ <=8/4 S Sulbactam Aztreonam <=4 S Cefazolin <=2 S Cefepime <=2 S Cefoxitin <=8 S Ceftazidime <=1 S Ceftazidime/ <=8 S Avibactam Ceftriaxone <=1 S Ciprofloxacin <=1 S Ertapenem <=0.5 S Gentamicin <=4 S Levofloxacin <=2 S Meropenem <=1 S Nitrofurantoin <=32 S Piperacillin/ <=16 S Tazobactam Tetracycline <=4 S Tigecycline <=2 S Tobramycin <=4 S Trimethoprim/ <=2/38 S Sulfa Performing Locations R1: This test was performed at: [facility], [address] [place] [address], [facility] , , [facility] Comment on above: Performed By: #### 2 [id number] ####[facility] [address] [place] [address] Family Medicine Office/Clini c Noteon 02-21-2023 Family Medicine Office/Clinic Note Chief Complaint UTI symptoms HPI Staff Reason for Visit: Possible UTI Symptoms: burning, urgency, dysuria, unable to fully empty bladder, frequency How Lon days OTC Meds: Azo Depression: CARLITOS: N/A Last Labs done: 10/08/2022 Covid Vaccine: No Flu Vaccine: No Smoker: Non smoker Pap (21-64yo): Due in 5 months History of Present Illness Pt presents today for possible UTI Tuesday worked all day- wore pad all day - thinking it might have caused issues Symptoms started: Tuesday- 3 days Pt reports: dysuria, suprapubic/abd pain, burning with urination, increased urinary frequency, urgency, hesitancy. Pt denies fever, n/v/d, foul odor, discharge, pruritus + blood in urine from menses- + hematuria Pt denies excessive intake of spicy foods, soft drinks, caffeine, douching, recent use of steroids or being immunocompromised at this time. Sexually active: YE Contraceptives: none- planning LMP: current STD concerns: no Remedies trialed: AZO Hx UTIs/kidney stones: no UTI in the past. no complications ATBs within last 30 days: no Patient is here for f/u for hypothyroidism last TSH? TSH: 0.58 mcIU/mL (10/08/22 16:47:00) Compliant with medication. Is taking on an empty stomach. Current medication dose: levothyroxine 112 mcg daily Pt denies sx of memory loss, increased weight, menorrhagia, skin/hair dryness, mental slowness, increased tiredness, intolerance to cold, raised BP, energy loss, depression, slow reflexes or constipation at this time. Review of Systems PHQ Score Initial Depression Screen Score: 0 SCORE Physical Exam Vitals & Measurements HR: 103(Peripheral) RR: 18 BP: 110/72 SpO2: 99% HT: 65 in HT: 166 cm WT: 58.6 kg WT: 128.92 lb BMI: 21.27 General: alert, no acute distress, well appearing, _pleasant, young female evaluated in room 4 Skin: warm, dry, intact Head: no trauma, normocephalic Neck: Trachea midline, no adenopathy, no tenderness Eye: normal conjunctiva, sclera clear, _PERRLA ENMT:, oral mucosa moist, no pharyngeal erythema or exudate, normal dentition Cardiovascular: tachy- normal rate and rhythm, normal peripheral perfusion, no edema Respiratory: Lungs CTA, respirations non labored Gastrointestinal: soft, non distended, + mild suprapubic tenderness, no guarding. Back: No tenderness, Normal ROM, Normal alignment., negative CVA tenderness Extremities: no deformity, no trauma Neurological: oriented x 4, LOC appropriate for age, CN II-XII intact, motor strength equal & normal bilaterally, sensation equal & normal bilaterally, speech normal Psychiatric: cooperative? , affect appropriate for age? , normal? judgement, normal? psychiatric thoughts. Assessment/Plan 1. Dysuria (R30.0: Dysuria) UA results show: She was on her period 2 negative bilirubin large amount of blood, trace glucose, ketones negative, leukocytes large nitrates positive, protein 1+, urine specific gravity less than 1.005, color was orange in appearance due to xkmx-vwf-kekluda meds she was taking, normal urobilinogen pH 5.5 Based on these results and patient complaints, will start on antimicrobial: Advised to take ATB as ordered, along with a probiotic. Will send urine for culture to confirm and will call with results in 3-4 days. Ensure adequate hydration. Reviewed appropriate hygiene practices. Recommended close follow up with PCP. Instructed to go to ER for worsening flank pain, uncontrolled fever, or vomiting, etc. Patient verbalized understanding of instructions. Macrobid- take with food 100 mg BID To prevent UTIs, wipe front to back to prevent contamination, wear cotton underwear, avoid tight-fitting pants, avoid bubble baths/soaps with fragrance. After swimming, change into dry clothes. Avoid soft drinks, caffeinated drink, and chocolate, as can irritate the bladder. Recommend drinking cranberry juice as a home remedy for UTIs, as makes urine more acidic and prevent bacteria from spreading. Increase water intake to flush out the bladder. Ordered: nitrofurantoin, 100 mg = 1 cap(s), Oral, q12hr, X 5 day(s), # 10 cap(s), Refills(s) 0, Pharmacy: [facility], 166, cm, 02/21/23 13:06:00 EST, Height/Length Dosing, 58.6, kg, 02/21/23 13:06:00 EST, Weight Dosing phenazopyridine, 200 mg = 1 tab(s), Oral, TID, X 3 day(s), # 9 tab(s), Refills(s) 0, Pharmacy: [facility], 166, cm, 02/21/23 13:06:00 EST, Height/Length Dosing, 58.6, kg, 02/21/23 13:06:00 EST, Weight Dosing Urine Culture Urnls Dip Stick Auto w/o Microscopy POC 27713 2. Acute cystitis (N30.00: Acute cystitis without hematuria) #1 3. Constipation in female (K59.00: Constipation, unspecified) improving. occasional Colace OTC and Miralax 4. Hemorrhoids (K64.9: Unspecified hemorrhoids) improving, stable 5. Hypothyroidism (E03.9: Hypothyroidism, unspecified) Chronic Stable with 112 mcg daily of Synthroid _ control Weight is stable Asymptomatic- noteable tachycardia today Du (more content not included)... Normal [facility] Comment on above: Result Comment: Elec tronically Signed By: Ya Wang.irvin\Date and Time Signed: 02/21/23 13:39 EST Patient Educationon 02-22-20 Patient Education Urology Dysuria Dysuria is pain or discomfort during urination. The pain or discomfort may be felt in the part of the body that drains urine from the bladder (urethra) or in the surrounding tissue of the genitals. The pain may also be felt in the groin area, lower abdomen, or lower back. You may have to urinate frequently or have the sudden feeling that you have to urinate (urgency). Dysuria can affect anyone, but it is more common in females. Dysuria can be caused by many different things, including: ? Urinary tract infection. ? Kidney stones or bladder stones. ? Certain STIs (sexually transmitted infections), such as chlamydia. ? Dehydration. ? Inflammation of the tissues of the vagina. ? Use of certain medicines. ? Use of certain soaps or scented products that cause irritation. Follow these instructions at home: Medicines ? Take omgi-usm-ealjpji and prescription medicines only as told by your health care provider. ? If you were prescribed an antibiotic medicine, take it as told by your health care provider. Do not stop taking the antibiotic even if you start to feel better. Eating and drinking ? Drink enough fluid to keep your urine pale yellow. ? Avoid caffeinated beverages, tea, and alcohol. These beverages can irritate the bladder and make dysuria worse. In males, alcohol may irritate the prostate. General instructions ? Watch your condition for any changes. ? Urinate often. Avoid holding urine for long periods of time. ? If you are female, you should wipe from front to back after urinating or having a bowel movement. Use each piece of toilet paper only once. ? Empty your bladder after sex. ? Keep all follow-up visits. This is important. ? If you had any tests done to find the cause of dysuria, it is up to you to get your test results. Ask your health care provider, or the department that is doing the test, when your results will be ready. Contact a health care provider if: ? You have a fever. ? You develop pain in your back or sides. ? You have nausea or vomiting. ? You have blood in your urine. ? You are not urinating as often as you usually do. Get help right away if: ? Your pain is severe and not relieved with medicines. ? You cannot eat or drink without vomiting. ? You are confused. ? You have a rapid heartbeat while resting. ? You have shaking or chills. ? You feel extremely weak. Summary ? Dysuria is pain or discomfort while urinating. Many different conditions can lead to dysuria. ? If you have dysuria, you may have to urinate frequently or have the sudden feeling that you have to urinate (urgency). ? Watch your condition for any changes. Keep all follow-up visits. ? Make sure that you urinate often and drink enough fluid to keep your urine pale yellow. This information is not intended to replace advice given to you by your health care provider. Make sure you discuss any questions you have with your health care provider. Document Revised: 10/17/2020 Document Reviewed: 10/17/2020 [employer] Patient Education ? 2022 [employer] [facility] Ambulatory Visit Summaryon 0 11-30-2022 Ambulatory Visit Summary YANA CHURCH :2000 Visit Date:11/30/2022 Ambulatory Visit Instructions Your Diagnosis Rectal itching Rectal pressure Weight loss Family history of colon cancer Your Care Team Attending Physician - Agueda Gray CNP Primary Care Physician - Ya Wang This Is Your Medications List polyethylene glycol 3350 with electrolytes (NuLYTELY Paige oral powder for reconstitution) Contact prescribing physician if questions or concerns Misc Prescription (Glucose Test Strips) Misc Prescription (Lancets) docusate (Colace) fluticasone nasal (Flonase) hydrocortisone-lidoc letty topical (hydrocortisone-lido brianna 2.5%-3% rectal gel with applicator) levothyroxine (Synthroid 112 mcg Tab) loratadine (Claritin 10 mg Tab) Procedures Performed None. Discharge Vitals Temperature (Temporal Artery) 36.4 ?C Heart Rate (Peripheral) 97 Blood Pressure 105/70 Height 166 cm Height 65 in Weight 58.8 kg Weight 129.36 lb BMI 21.34 What to do next Scheduled Follow-Up Appointments Tuesday 1:00 PM EST With: Norberto BARTLETT, Ya Alexandre Where: [facility] Primary Care Normal [facility] Gastroenterology Office/Clin ic Noteon 11-30-2022 Gastroenterology Office/Clinic Note Chief Complaint constipation HPI Staff Patient is a 22 year old female who was referred by Ya BARTLETT for: occasional hemorrhoids- small bleeding with constipation, irritation afterwards about once a month on and off since giving History of Present Illness Patient is a 22-year-old female who presents for referral from her PCP?Ya Thornton CNP for further evaluation of hemorrhoids. Patient was previously evaluated by her PCP 11/11/2022 and reported hemorrhoids were not getting better. Note indicated patient had been having hemorrhoids over the last 4 weeks off and on since giving and was having rectal itching. Patient had previous rectal exam with PCP 11/11/2022 per note that revealed no palpable hemorrhoids. Patient's PCP advised patient regarding MiraLAX, Colace, sitz bath's and was ordered hydrocortisone/lidoc letty topical rectal gel twice daily. Patient had previous labs 10/08/2022 that revealed normal H&H, normal BUN, normal creatinine, normal LFTs. Family history of colon cancer: Patient's paternal great uncle. Family history of colon polyps: Denies. Personal history of colon cancer: Denies. Personal history of colon polyps: Denies. Anticoagulation therapy: Denies. Antiplatelet therapy: Denies. During today's visit, patient reports she has been having issues with hemorrhoids off/on after birthing her daughter 18 months ago. She explains she was having BRBPR off/on with rectal pain 2 months ago that is since resolved since treatment by her PCP with miralax, colace, hydrocortisone/lidoc letty gel. She reports she has to push/strain to have a BM. Is having rectal itching and pressure over the last 2 months, occurring daily. Is having 1 formed BM daily with colace daily. She reports she has lost 5 pounds intentionally over the last 2 months. Patient denies abdominal pain, acid reflux, black/bloody stools, nausea/vomiting, fevers/chills, and denies having any other GI complaints. Review of Systems ROS - Provider Constitutional: no fever, no chills. Skin: no Jaundice. ENMT: Denies dysphagia and heartburn. Respiratory: no shortness of breath. Cardiovascular: no chest pain. Gastrointestinal: no nausea, no vomiting, no diarrhea, no GI bleeding. Physical Exam Vitals & Measurements T: 36.4 ?C(Temporal Artery) HR: 97(Peripheral) BP: 105/70 HT: 65 in HT: 166 cm WT: 58.8 kg WT: 129.36 lb BMI: 21.34 General: Well developed, well nourished, in no acute distress Head: Normocephalic/atraum atic Lungs: Normal respiratory effort and clear to auscultation Cardio: Regular rate and rhythm, normal S1 and S2, no murmur, no rub Abdomen: Soft, non-distended, non-tender. Normoactive bowel sounds present in all 4 abdominal quadrants, bilaterally. Mental Status: Alert and oriented x3. Normal mood and affect Assessment/Plan 1. Rectal itching (L29.0: Pruritus ani) Is having rectal itching and pressure over the last 2 months, occurring daily. Is having 1 formed BM daily with colace daily. Is having to push/strain at times to have a BM. Rectal exam to be performed while patient is under deep sedation for colonoscopy. Ordered Colonoscopy. Ordered: Colonoscopy (Hospital Procedure) 2. Rectal pressure (R19.8: Other specified symptoms and signs involving the digestive system and abdomen) Is having rectal itching and pressure over the last 2 months, occurring daily. Is having 1 formed BM daily with colace daily. Is having to push/strain at times to have a BM. Rectal exam to be performed while patient is under deep sedation for colonoscopy. Ordered Colonoscopy. Ordered: Colonoscopy (Hospital Procedure) 3. Weight loss (R63.4: Abnormal weight loss) Is having reported loss of 5 pounds intentionally over the last 2 months. Previous labs 10/08/2022 that revealed normal H&H, normal BUN, normal creatinine, normal LFTs. Ordered EGD/Colonoscopy to further evaluate weight loss. Ordered: Colonoscopy (Hospital Procedure) EGD Endoscopy (Hospital Procedure) 4. Family history of colon cancer (Z80.0: Family history of malignant neoplasm of digestive organs) FH colon cancer- patient's paternal great uncle. See # 1 and 2. Ordered: Colonoscopy (Hospital Procedure) Orders: polyethylene glycol 3350 with electrolytes, See Instructions, 1 EA, Refill(s) 0, Prior to colonoscopy., [facility] #[id number], 166, cm, 11/30/22 12:12:00 EDT, Height/Length Dosing, 58.8, kg, 11/30/22 12:12:00 EDT, Weight Dosing Follow-up With When Contact Information Agueda Gray CNP Within 2 weeks Additional Instructions: Following EGD/Colonoscopy. Patient Education High-Fiber Eating Plan Problem List/Past Medical History Ongoing BMI 21.0-21.9, adult Constipation in female Establishing care with new doctor, encounter for Family history of colon cancer First trimester Headache Hemorrhoids Hordeolum of left eye Hx gestational diabetes Hx of allergic rhinitis Hypoglycemia Hypothyroidism Left (more content not included)... Normal [facility] Comment on above: Result Comment: Elec tronically Signed By: Agueda Gray CNP\.br\Date and Time Signed: 11/30/22 12:32 EDT Patient Educationon 12-01-19 Patient Education Gastroenterology High-Fiber Eating Plan Fiber, also called dietary fiber, is a type of carbohydrate. It is found foods such as fruits, vegetables, whole grains, and beans. A high-fiber diet can have many health benefits. Your health care provider may recommend a high-fiber diet to help: ? Prevent constipation. Fiber can make your bowel movements more regular. ? Lower your cholesterol. ? Relieve the following conditions: ? Inflammation of veins in the anus (hemorrhoids). ? Inflammation of specific areas of the digestive tract (uncomplicated diverticulosis). ? A problem of the large intestine, also called the colon, that sometimes causes pain and diarrhea (irritable bowel syndrome, or IBS). ? Prevent overeating as part of a weight-loss plan. ? Prevent heart disease, type 2 diabetes, and certain cancers. What are tips for following this plan? Reading food labels ? Check the nutrition facts label on food products for the amount of dietary fiber. Choose foods that have 5 grams of fiber or more per serving. ? The goals for recommended daily fiber intake include: ? Men (age 50 or younger): 34?38 g. ? Men (over age 50): 28?34 g. ? Women (age 50 or younger): 25?28 g. ? Women (over age 50): 22?25 g. Your daily fiber goal is g. Shopping ? Choose whole fruits and vegetables instead of processed forms, such as apple juice or applesauce. ? Choose a wide variety of high-fiber foods such as avocados, lentils, oats, and kidney beans. ? Read the nutrition facts label of the foods you choose. Be aware of foods with added fiber. These foods often have high sugar and sodium amounts per serving. Cooking ? Use whole-grain flour for baking and cooking. ? Cook with brown rice instead of white rice. Meal planning ? Start the day with a breakfast that is high in fiber, such as a cereal that contains 5 g of fiber or more per serving. ? Eat breads and cereals that are made with whole-grain flour instead of refined flour or white flour. ? Eat brown rice, bulgur wheat, or millet instead of white rice. ? Use beans in place of meat in soups, salads, and pasta dishes. ? Be sure that half of the grains you eat each day are whole grains. General information ? You can get the recommended daily intake of dietary fiber by: ? Eating a variety of fruits, vegetables, grains, nuts, and beans. ? Taking a fiber supplement if you are not able to take in enough fiber in your diet. It is better to get fiber through food than from a supplement. ? Gradually increase how much fiber you consume. If you increase your intake of dietary fiber too quickly, you may have bloating, cramping, or gas. ? Drink plenty of water to help you digest fiber. ? Choose high-fiber snacks, such as berries, raw vegetables, nuts, and popcorn. What foods should I eat? Fruits Berries. Pears. Apples. Oranges. Avocado. Prunes and raisins. Dried figs. Vegetables Sweet potatoes. Spinach. Kale. Artichokes. Cabbage. Broccoli. Cauliflower. Green peas. Carrots. Squash. Grains Whole-grain breads. Multigrain cereal. Oats and oatmeal. Brown rice. Barley. Bulgur wheat. Millet. Quinoa. Bran muffins. Popcorn. [place] wafer crackers. Meats and other proteins [place] beans, kidney beans, and díaz beans. Soybeans. Split peas. Lentils. Nuts and seeds. Dairy Fiber-fortified yogurt. Beverages Fiber-fortified soy milk. Fiber-fortified orange juice. Other foods Fiber bars. The items listed above may not be a complete list of recommended foods and beverages. Contact a dietitian for more information. What foods should I avoid? Fruits Fruit juice. Cooked, strained fruit. Vegetables Fried potatoes. Canned vegetables. Well-cooked vegetables. Grains White bread. Pasta made with refined flour. White rice. Meats and other proteins Fatty cuts of meat. Fried chicken or fried fish. Dairy Milk. Yogurt. Cream cheese. Sour cream. Fats and oils [place]. Beverages Soft drinks. Other foods Cakes and pastries. The items listed above may not be a complete list of foods and beverages to avoid. Talk with your dietitian about what choices are best for you. Summary ? Fiber is a type of carbohydrate. It is found in foods such as fruits, vegetables, whole grains, and beans. ? A high-fiber diet has many benefits. It can help to prevent constipation, lower blood cholesterol, aid weight loss, and reduce your risk of heart disease, diabetes, and certain cancers. ? Increase your intake of fiber gradually. Increasing fiber too quickly may cause cramping, bloating, and gas. Drink plenty of water while you increase the amount of fiber you consume. ? The best sources of fiber include whole fruits and vegetables, whole grains, nuts, seeds, and beans. This information is not intended to replace advice given to you by your health care provider. Make sure you discuss any questions you have with your health care provider. Document Revised: (more content not included)... [facility] Pre-Certification Formon Pre-Certification Form [id number] 1#1.00CD:127 [facility] Family Medicine Office/Clini c Noteon 11-11-2022 Family Medicine Office/Clinic Note Chief Complaint pt here for hemmeroids not getting better. HPI Staff Reason for Visit: F/u on Hemorrhoids Pain: there was the first week, now feels itchy. How Lon week, but on and off since giving Better/Worse: has gotten a little better there was blood the first week. Depression: 0 CARLITOS: N/A Last Labs done: 10/08/2022 Covid Vaccine: No Smoker: Non smoker Pap (21-64yo): Due in 9 months History of Present Illness -I have reviewed and discussed the HPI (staff) with the patient today. -Information was verified and is correct. -Additional information provided if needed. On the last new to me appointment patient had a complaint of occasional constipation with hemorrhoids about once a month, apparently they are happening more often At last visit we encourage proper diet and exercise [id number] MiraLAX or Colace with Preparation H [id number]-[id number], bleeding has stopped, blood noted on toilet paper, Labs done October 08, 2022 CBC was normal, CMP shows slightly elevated potassium at 7.9, BUN of 24 glucose 105 TSH 0.58 Down from 1.27 previous, may need to decrease thyroid medication, discussed screening for Adolfo's at the last visit. Patient had hordeolum of left left eye- no issues, all headed up Review of Systems PHQ Score Initial Depression Screen Score: 0 Constitutional: no fever, no chills, no sweats, no weakness Skin: no Jaundice, no rash, no lesions, nopetechiae ENMT: no ear pain, no sore throat, no congestion, no hoarseness Respiratory: no shortness of breath, no cough, no orthopnea, no wheezing Cardiovascular: no chest pain, no palpitations, no edema Gastrointestinal: no nausea, no vomiting, no diarrhea, no GI bleeding + hemorrhoids and constipation and itching Genitourinary: no dysuria, no hematuria, no discharge, no pain Musculoskeletal: no back pain, no trauma Neurologic: no headache, no dizziness, no numbness, no weakness Psychiatric: no sleeping problems, no irritability, no mood swings/depression. Heme/Lymph: no bleeding tendency, no bruising tendency, no petechiae, no swollen nodes Allergy/Immunologic: no seasonal allergies, no food allergies, no recurrent infections, no impaired immunity Additional ROS info: Except as noted in the above Review of Systems and in the History of Present Illness all other systems have been reviewed and are negative or noncontributory. Physical Exam Vitals & Measurements T: 36.7 ?C(Oral) HR: 76(Peripheral) BP: 112/62 SpO2: 98% HT: 65 in HT: 166 cm WT: 59.4 kg WT: 130.68 lb BMI: 21.56 General: alert, no acute distress, wellappearing, _pleasant Skin: warm, dry, intact Head: no trauma, normocephalic Neck: Trachea midline, no adenopathy, no tenderness Eye: normal conjunctiva, sclera clear, _PERRLA ENMT: TM's clear, oral mucosa moist, no pharyngeal erythema or exudate, normaldentition Cardiovascular: regular rate and rhythm, normal peripheral perfusion, noedema Respiratory: Lungs CTA, respirations non labored Chest wall: no deformity, nontender Gastrointestinal: soft, non distended, no tenderness, no guarding. Rectal exam was performed, I did offer typesetter apprentice but patient declined, external anus is normal no erythema or edema, no external hemorrhoids palpated or visualized. Internal rectal exam performed, nontender no obvious palpable or thrombosed hemorrhoids palpated, no foreign body noted and no impacted stool noted Back: No tenderness, Normal ROM, Normal alignment. Extremities: no deformity, no trauma Neurological: oriented x 4, LOC appropriate for age, CN II-XII intact, motor strength equal & normal bilaterally, sensation equal & normal bilaterally, speech normal Psychiatric: cooperative? , affect appropriate for age? , normal? judgement, normal? psychiatric thoughts. Assessment/Plan 1. Hemorrhoids (K64.9: Unspecified hemorrhoids) Encourage increased fluid and fiber, MiraLAX 1 or 2 times per day, Colace once daily or twice daily, Decrease straining, decrease length of time on toilet, sitz bath's, wrqv-qzx-kzzutst medications and suppositories and creams Hydrocortisone lidocaine with applicator gel ordered today to use twice daily Referral for GI referral placed today Ordered: hydrocortisone-lidoc letty topical, 1 carmen, Rectal, BID, 60 EA, Refill(s) 1, [facility], 166, cm, 11/11/22 9:28:00 EDT, Height/Length Dosing, 59.4, kg, 11/11/22 9:28:00 EDT, Weight Dosing [facility] [place] Internal Ambulatory Referral 2. Hypothyroidism (E03.9: Hypothyroidism, unspecified) TSH: 0.58 mcIU/mL (10/08/22 16:47:00) Patient with weight loss, decrease Synthroid to 112 mcg previously 125 mcg- will recheck in 1-2 months Is referral to endocrinology perhaps needed at this time, 3. BMI 21.0-21.9, adult (Z68.21: Body mass index [BMI] 21.0-21.9, adult) The standard range for ages 18 and older is >=18.5 and < 25 kg/m2. BMI today was within this range, continue to maintain with diet and exercise. Orders: azelastine ophthalmic, (more content not included)... Normal [facility] Comment on above: Result Comment: Elec tronically Signed By: Norberto BARTLETT, Ya Alexandre\.br\Date and Time Signed: 11/11/22 09:53 EDT Patient Educationon 11-12-19 Patient Education High-Fiber Diet Fiber, also called dietary fiber, is a type of carbohydrate that is found in fruits, vegetables, whole grains, and beans. A high-fiber diet can have many health benefits. Your health care provider may recommend a high-fiber diet to help: ? Prevent constipation. Fiber can make your bowel movements more regular. ? Lower your cholesterol. ? Relieve the following conditions: ? Swelling of veins in the anus (hemorrhoids). ? Swelling and irritation (inflammation) of specific areas of the digestive tract (uncomplicated diverticulosis). ? A problem of the large intestine (colon) that sometimes causes pain and diarrhea (irritable bowel syndrome, IBS). ? Prevent overeating as part of a weight-loss plan. ? Prevent heart disease, type 2 diabetes, and certain cancers. What is my plan? The recommended daily fiber intake in grams (g) includes: ? 38 g for men age 50 or younger. ? 30 g for men over age 50. ? 25 g for women age 50 or younger. ? 21 g for women over age 50. You can get the recommended daily intake of dietary fiber by: ? Eating a variety of fruits, vegetables, grains, and beans. ? Taking a fiber supplement, if it is not possible to get enough fiber through your diet. What do I need to know about a high-fiber diet? ? It is better to get fiber through food sources rather than from fiber supplements. There is not a lot of research about how effective supplements are. ? Always check the fiber content on the nutrition facts label of any prepackaged food. Look for foods that contain 5 g of fiber or more per serving. ? Talk with a diet and nutritionalist (dietitian) if you have questions about specific foods that are recommended or not recommended for your medical condition, especially if those foods are not listed below. ? Gradually increase how much fiber you consume. If you increase your intake of dietary fiber too quickly, you may have bloating, cramping, or gas. ? Drink plenty of water. Water helps you to digest fiber. What are tips for following this plan? ? Eat a wide variety of high-fiber foods. ? Make sure that half of the grains that you eat each day are whole grains. ? Eat breads and cereals that are made with whole-grain flour instead of refined flour or white flour. ? Eat brown rice, bulgur wheat, or millet instead of white rice. ? Start the day with a breakfast that is high in fiber, such as a cereal that contains 5 g of fiber or more per serving. ? Use beans in place of meat in soups, salads, and pasta dishes. ? Eat high-fiber snacks, such as berries, raw vegetables, nuts, and popcorn. ? Choose whole fruits and vegetables instead of processed forms like juice or sauce. What foods can I eat? Fruits Berries. Pears. Apples. Oranges. Avocado. Prunes and raisins. Dried figs. Vegetables Sweet potatoes. Spinach. Kale. Artichokes. Cabbage. Broccoli. Cauliflower. Green peas. Carrots. Squash. Grains Whole-grain breads. Multigrain cereal. Oats and oatmeal. Brown rice. Barley. Bulgur wheat. Millet. Quinoa. Bran muffins. Popcorn. [place] wafer crackers. Meats and other proteins [place], kidney, and díaz beans. Soybeans. Split peas. Lentils. Nuts and seeds. Dairy Fiber-fortified yogurt. Beverages Fiber-fortified soy milk. Fiber-fortified orange juice. Other foods Fiber bars. The items listed above may not be a complete list of recommended foods and beverages. Contact a dietitian for more options. What foods are not recommended? Fruits Fruit juice. Cooked, strained fruit. Vegetables Fried potatoes. Canned vegetables. Well-cooked vegetables. Grains White bread. Pasta made with refined flour. White rice. Meats and other proteins Fatty cuts of meat. Fried chicken or fried fish. Dairy Milk. Yogurt. Cream cheese. Sour cream. Fats and oils [place]. Beverages Soft drinks. Other foods Cakes and pastries. The items listed above may not be a complete list of foods and beverages to avoid. Contact a dietitian for more information. Summary ? Fiber is a type of carbohydrate. It is found in fruits, vegetables, whole grains, and beans. ? There are many health benefits of eating a high-fiber diet, such as preventing constipation, lowering blood cholesterol, helping with weight loss, and reducing your risk of heart disease, diabetes, and certain cancers. ? Gradually increase your intake of fiber. Increasing too fast can result in cramping, bloating, and gas. Drink plenty of water while you increase your fiber. ? The best sources of fiber include whole fruits and vegetables, whole grains, nuts, seeds, and beans. This information is not intended to replace advice given to you by your health care provider. Make sure you discuss any questions you have with your health care provider. Document Released: 03/07/2006 Document Revised: 01/09/2018 Document Reviewed: 01/09/2018 [employer] Patient Education ? 2019 [employer]. Gastroenterology H (more content not included)... Normal [facility] Ambulatory Visit Summaryon 0 10-08-2022 Ambulatory Visit Summary LILIANAYANA MONTENEGRO Theodore :2000 Visit Date:10/08/2022 Ambulatory Visit Instructions Your Diagnosis Establishing care with new doctor, encounter for Hemorrhoids Constipation in female BMI 20.0-20.9, adult Hypothyroidism Weight loss Hordeolum of left eye Left eye complaint Your Care Team Attending Physician - Ya Wang Primary Care Physician - Ya Wang This Is Your Medications List azelastine ophthalmic (azelastine 0.05% Opth Ryann) fluticasone nasal (Flonase) levothyroxine (levothyroxine 125 mcg (0.125 mg) Tab) loratadine (Claritin 10 mg Tab) Procedures Performed None. Discharge Vitals Heart Rate (Peripheral) 86 Respiratory Rate 18 Blood Pressure 100/66 Height 166 cm Height 65 in Weight 57.8 kg Weight 127.16 lb BMI 20.98 What to do next You Need to Schedule the Following Appointments Follow Up with Norberto BARTLETT, CINDY Liang, MED When: Comments: 6 mo f/u for hypothyroid, weight loss Where: [address], [address] [facility] [address] [place] [address]- Business (1) You Need to Complete the Following Anti-thyroid Abys, Blood, Routine collect, 10/08/22, Order for future visit, Lab Collect, Weight loss Invalid Interpretation Code Hypothyroidism [facility] Auto Diffon 10-08-2022 Basophils/100 WBC (Bld) 1.1 % Normal 0.0-2.0 [facility] Comment on above: Order Comment: Order Added by Discern Expert. Performed By: #### 2 254037, [id number], 06472413, 6955596, 7388247 ####[facility] [address] [place] [address] Basophils/Leukocytes Auto (Bld) [Pure # fraction] 0.1 E9/L Normal 0.0-0.2 [facility] Comment on above: Order Comment: Order Added by Discern Expert. Performed By: #### 2 114683, 35254743, 88170656, 0790020, 9406222 ####[facility] [address] [place] [address] Eosinophils/100 WBC (Bld) 1.2 % Normal 0.0-8.0 [facility] Comment on above: Order Comment: Order Added by Discern Expert. Performed By: #### 2 779748, 26611548, 75006080, 2060942, 4538087 ####[facility] [address] [place] [address] Eosinophils/Leukocyt es Auto (Bld) [Pure # fraction] 0.1 E9/L Normal 0.0-0.5 [facility] Comment on above: Order Comment: Order Added by Discern Expert. Performed By: #### 2 997720, 06800614, 35805521, 1508159, 9428972 ####[address] [place] [address] Lymphocytes/100 WBC (Bld) 41.0 % Normal 14.0-50.0 [facility] Comment on above: Order Comment: Order Added by Discern Expert. Performed By: #### 2 708285, 94552575, 92638817, 6497957, 7456337 ####[address] [place] [address] Lymphocytes/Leukocyt es Auto (Bld) [Pure # fraction] 2.3 E9/L Normal 1.0-4.0 [facility] Comment on above: Order Comment: Order Added by Elle Expert. Performed By: #### 2 565142, 30142901, 85383784, 0161456, 0238474 ####[address] [address] Monocytes/100 WBC (Bld) 5.8 % Normal 4.0-14.0 [facility] Comment on above: Order Comment: Order Added by Elle Expert. Performed By: #### 2 759334, 74861674, 36462498, 8699029, 8721514 ####[address] [address] Monocytes/Leukocytes Auto (Bld) [Pure # fraction] 0.3 E9/L Normal 0.2-1.0 [facility] Comment on above: Order Comment: Order Added by Discern Expert. Performed By: #### 2 891645, 50448843, 74143141, 1395857, 6886810 ####[address] [address] Neutrophils/100 WBC (Bld) 50.9 % Normal 36.0-75.0 [facility] Comment on above: Order Comment: Order Added by Elle Expert. Performed By: #### 2 485496, 42412510, 20373382, 0017206, 9397117 ####[address] [place] [address] Neutrophils/Leukocyt es Auto (Bld) [Pure # fraction] 2.8 E9/L Normal 2.0-7.5 [facility] Comment on above: Order Comment: Order Added by Discern Expert. Performed By: #### 2 943020, 91327519, 00310713, 5078276, 8681266 ####[address] [id number] CBC w/ Auto Diffon 3 Erythrocyte distribution width (RBC) [Ratio] 12.6 % Normal 10.9-14.2 [facility] Comment on above: Performed By: #### 2 435159, 07112995, 95199113, 4293766, 7313450 ####[address] [address] Hematocrit (Bld) [Volume fraction] 40.4 % Normal 34.0-46.0 [facility] Comment on above: Performed By: #### 2 962311, 77120477, 82639986, 9006291, 0863258 ####[address] [address] Hemoglobin (Bld) [Mass/Vol] 14.1 g/dL Normal 12.0-16.0 [facility] Comment on above: Performed By: #### 2 756572, 26947306, 31687952, 4861472, 8245535 ####[address] [address] MCH (RBC) [Entitic mass] 32.1 pg Normal 27.0-34.0 [facility] Comment on above: Performed By: #### 2 567334, 00838040, 39117542, 2593918, 0418950 ####[address] [address] MCHC (RBC) [Mass/Vol] 34.8 g/dL Normal 31.4-36.0 [facility] Comment on above: Performed By: #### 2 849266, 95313364, 63832338, 9928122, 9311236 ####[facility] [address] [place] [address] MCV (RBC) [Entitic vol] 92.1 fL Normal 80.0-100.0 [facility] Comment on above: Performed By: #### 2 098535, 68394991, 43777045, 0309535, 8624678 ####[facility] [address] [place] [address] Platelet mean volume (Bld) [Entitic vol] 9.1 fL Normal 6.4-10.8 [facility] Comment on above: Performed By: #### 2 867863, 25111800, 87023384, 0556991, 8580641 ####[address] [address] Platelets (Bld) [#/Vol] 238.0 E9/L Normal 150.0-500.0 [facility] Comment on above: Performed By: #### 2 752535, 45419280, 93897717, 7362064, 2675711 ####[address] [address] RBC (Bld) [#/Vol] 4.4 E12/L Normal 4.3-5.9 [facility] Comment on above: Performed By: #### 2 221986, 26097819, 36279924, 5247275, 6594561 ####[address] [address] WBC corrected for nucl RBC Auto (Bld) [#/Vol] 5.6 E9/L Normal 4.0-11.0 [facility] Comment on above: Performed By: #### 2 850620, 43127854, 29782067, 1934783, 4040224 ####[address] [place] [address] CMPon 10-08-2022 Albumin [Mass/Vol] 4.7 g/dL Normal 3.3-5.0 [facility] Comment on above: Performed By: #### 2 032342, 37619016, 46664538, 3972420, 2213415 ####[facility] [address] [place] [address] Albumin/Globulin (S) [Mass conc ratio] 1.5 Normal 1.1-2.2 [facility] Comment on above: Performed By: #### 2 375946, 95178679, 85882464, 3873410, 0266679 ####[address] [place] [address] ALP [Catalytic activity/Vol] 42 Int._Unit/L Normal 21-98 [facility] Comment on above: Performed By: #### 2 533753, 28050824, 22712295, 5321342, 6890768 ####[address] [address] ALT No additional P-5'-P [Catalytic activity/Vol] 15 Int._Unit/L Normal 6-46 [facility] Comment on above: Performed By: #### 2 397612, 66120247, 97750067, 3759321, 3536685 ####[address] [place] [address] Anion gap [Moles/Vol] 13 mmol/L Normal 6-16 [facility] Comment on above: Performed By: #### 2 694978, 43148193, 62361865, 4560606, 8629391 ####[address] [place] [address] AST [Catalytic activity/Vol] 22 Int._Unit/L Normal 5-43 [facility] Comment on above: Performed By: #### 2 857943, 30857573, 05922705, 4620658, 5444433 ####[address] [place] [address] Bilirubin [Mass/Vol] 0.5 mg/dL Normal 0.0-1.1 [facility] Comment on above: Performed By: #### 2 792049, 48085929, 62778803, 5615675, 5885623 ####[facility] [address] [place] [address] Calcium [Mass/Vol] 9.4 mg/dL Normal 8.9-11.1 [facility] Comment on above: Performed By: #### 2 716741, 59649442, 17457150, 7674300, 8390817 ####[facility] [address] [place] [address] Chloride [Moles/Vol] 107 mmol/L Normal 101-111 [facility] Comment on above: Performed By: #### 2 127941, 04653524, 64363668, 5869753, 5137810 ####[facility] [address] [place] [address] CO2 [Moles/Vol] 24 mmol/L Normal 21-31 [facility] Comment on above: Performed By: #### 2 063087, 57580887, 07984871, 2187801, 1300972 ####[facility] [address] [place] [address] Creatinine [Mass/Vol] 0.7 mg/dL Normal 0.5-1.3 [facility] Comment on above: Performed By: #### 2 085285, 81906564, 32865566, 1164203, 2000212 ####[facility] [address] [place] [address] Globulin (S) [Mass/Vol] 3.2 g/dL Normal 1.4-4.0 [facility] Comment on above: Performed By: #### 2 001133, 35673864, 99885316, 7892167, 0566905 ####[facility] [address] [place] [address] Glucose [Mass/Vol] 105 mg/dL Normal 55-199 [facility] Comment on above: Result Comment: If t his glucose result represents a fasting glucose, interpretation should refer to the following reference range: 55-99 mg/dL Performed By: #### 2 662004, 64734870, 27258016, 1097280, 6950914 ####[facility] [address] [place] [address] Potassium [Moles/Vol] 3.9 mmol/L Normal 3.5-5.3 [facility] Comment on above: Performed By: #### 2 054227, 23146147, 23477372, 2195570, 1888915 ####[facility] [address] [place] [address] Protein [Mass/Vol] 7.9 g/dL High 6.0-7.8 [facility] Comment on above: Performed By: #### 2 601376, 43506048, 21183253, 0184052, 1512369 ####[facility] [address] [place] [address] Sodium [Moles/Vol] 140 mmol/L Normal 135-145 [facility] Comment on above: Performed By: #### 2 277133, 59624282, 80025512, 1763173, 3280922 ####[facility] [address] [place] [address] Urea nitrogen [Mass/Vol] 17 mg/dL Normal 5-21 [facility] Comment on above: Performed By: #### 2 803725, 71660771, 42337473, 2207749, 6298301 ####[facility] [address] [place] [address] Urea nitrogen/Creatinine [Mass ratio] 24 No Units High 10-20 [facility] Comment on above: Performed By: #### 2 516143, 26925483, 34641200, 9071216, 4062900 ####[facility] [address] [place] [address] Consent for Treatmenton 09-19 Consent for Treatment [id number] #[id number]:127 Normal [facility] Office/Clini c Noteon 10-08-2022 Family Medicine Office/Clinic Note Chief Complaint Establish care --- pt here to establish care. Pt states that she is having pain in her left eye. Denies any visual changes, but was not able to put contacts in this am. History of Present Illness Overall, pt reports feeling well woke up this morning and last night noted left eye, no crusting , itching left eye noted upper lid and cheeck no fevers, no vision change, no headache, no ear pain, no drainage new contacts - new pair- new mascara maybe a splash washing bottles? Medical history includes: Complications due to and COVID hospitalized 23 week-35 wks Gestational DM- resolved sometimes feel low BS Cannot find meter- prob does not have test strips Get occasional headache, dizziness- then goes away when eating Menstrual cycle- regular no OCC at this time. using condoms- encouraged to get on prenatals NETTIE if she not nursing- Gets occasional hemorrhoids- small bleeding with constipation, irritation afterwards about once a month Social hx: diet: very healthy lately- is on diet exercise: no scheduled- chases the 15 month old alcohol use: no illicit drug use: no smoking status: no - 1 yrs 15 month old - DEL[place] Health Maintenance: Routine labs: TSH 1.27 weight loss noted since last visit Pap (21-64yo): Dr Marshall scheduled for nov 2022 Specialists: Mapping Supervisor: Bird Álvarez in [place]- contacts most of the time, Dentist: ROSARIO - no issues- Dr Nila MARSHALL- [facility] Review of Systems PHQ Score Initial Depression Screen Score: 0 Constitutional: no fever, no chills, no sweats, no weakness + weigh tloss noted Skin: no Jaundice, no rash, no lesions, nopetechiae ENMT: no ear pain, no sore throat, no congestion, no hoarseness + left eye redness Respiratory: no shortness of breath, no cough, no orthopnea, no wheezing Cardiovascular: no chest pain, no palpitations, no edema Gastrointestinal: no nausea, no vomiting, no diarrhea, no GI bleeding Genitourinary: no dysuria, no hematuria, no discharge, no pain Musculoskeletal: no back pain, no trauma Neurologic: no headache, no dizziness, no numbness, no weakness Psychiatric: no sleeping problems, no irritability, no mood swings/depression. Heme/Lymph: no bleeding tendency, no bruising tendency, no petechiae, no swollen nodes Allergy/Immunologic: no seasonal allergies, no food allergies, no recurrent infections, no impaired immunity Additional ROS info: Except as noted in the above Review of Systems and in the History of Present Illness all other systems have been reviewed and are negative or noncontributory. Physical Exam Vitals & Measurements HR: 86(Peripheral) RR: 18 BP: 100/66 SpO2: 100% HT: 65 in HT: 166 cm WT: 57.8 kg WT: 127.16 lb BMI: 20.98 General: alert, no acute distress, wellappearing, _pleasant patient is thin Skin: warm, dry, intact Head: no trauma, normocephalic Neck: Trachea midline, no adenopathy, no tenderness Eye: normal conjunctiva, sclera injected left, _PERRLA, mild left eyelid injection in the left upper lid small hordeolum noted ENMT: TM's clear, oral mucosa moist, no pharyngeal erythema or exudate, normaldentition Cardiovascular: regular rate and rhythm, normal peripheral perfusion, noedema Respiratory: Lungs CTA, respirations non labored Chest wall: no deformity, nontender Gastrointestinal: soft, non distended, no tenderness, no guarding. Back: No tenderness, Normal ROM, Normal alignment. Extremities: no deformity, no trauma Neurological: oriented x 4, LOC appropriate for age, CN II-XII intact, motor strength equal & normal bilaterally, sensation equal & normal bilaterally, speech normal Psychiatric: cooperative? , affect appropriate for age? , normal? judgement, normal? psychiatric thoughts. Assessment/Plan 1. Establishing care with new doctor, encounter for (Z76.89: Persons encountering health services in other specified circumstances) Discussed annual wellness visit and establishing care with myself Educated patient on preventative wellness screenings. Labs ordered today due to patient weight loss and history of hypothyroidism. Pap testing and gynecologic screenings per her [employer]. Discussed self breast exams and other health maintenance. Encourage proper diet and exercise. Patient complaining of normal menses but strong family history of Adolfo's and along with anemia. Labs were ordered as follows follow-up with me in 6 months or sooner if needed Ordered: CBC w/ Auto Diff Comprehensive Metabolic Panel TSH With T4fr Reflex 2. Hemorrhoids (K64.9: Unspecified hemorrhoids) Encouraged proper diet and exercise increasing. Patient encouraged to use uncm-axb-gqrmoxi MiraLAX or Colace, encouraged Preparation H nlgx-gzu-dnwjwiu topical treatments if needed. \ Follow-up only if needed. Patient only having minimal complaints 3. Constipation in female (K59.00: Constipation, unspecified) see #3 4. BMI 20.0-20.9, ad (more content not included)... Normal [facility] Comment on above: Result Comment: Elec tronically Signed By: Ya Wang\.br\Date and Time Signed: 10/08/22 16:30 EDT Patient Educationon 10-09-19 Patient Education Endocrinology Hypoglycemia Hypoglycemia occurs when the level of sugar (glucose) in the blood is too low. Hypoglycemia can happen in people who have or do not have diabetes. It can develop quickly, and it can be a medical emergency. For most people, a blood glucose level below 70 mg/dL (3.9 mmol/L) is considered hypoglycemia. Glucose is a type of sugar that provides the body's main source of energy. Certain hormones (insulin and glucagon) control the level of glucose in the blood. Insulin lowers blood glucose, and glucagon raises blood glucose. Hypoglycemia can result from having too much insulin in the bloodstream, or from not eating enough food that contains glucose. You may also have reactive hypoglycemia, which happens within 4 hours after eating a meal. What are the causes? Hypoglycemia occurs most often in people who have diabetes and may be caused by: ? Diabetes medicine. ? Not eating enough, or not eating often enough. ? Increased physical activity. ? Drinking alcohol on an empty stomach. If you do not have diabetes, hypoglycemia may be caused by: ? A tumor in the pancreas. ? Not eating enough, or not eating for long periods at a time (fasting). ? A severe infection or illness. ? Problems after having bariatric surgery. ? Organ failure, such as kidney or liver failure. ? Certain medicines. What increases the risk? Hypoglycemia is more likely to develop in people who: ? Have diabetes and take medicines to lower blood glucose. ? Abuse alcohol. ? Have a severe illness. What are the signs or symptoms? Symptoms vary depending on whether the condition is mild, moderate, or severe. Mild hypoglycemia ? Hunger. ? Sweating and feeling clammy. ? Dizziness or feeling light-headed. ? Sleepiness or restless sleep. ? Nausea. ? Increased heart rate. ? Headache. ? Blurry vision. ? Mood changes, such as irritability or anxiety. ? Tingling or numbness around the mouth, lips, or tongue. Moderate hypoglycemia ? Confusion and poor judgment. ? Behavior changes. ? Weakness. ? Irregular heartbeat. ? A change in coordination. Severe hypoglycemia Severe hypoglycemia is a medical emergency. It can cause: ? Fainting. ? Seizures. ? Loss of consciousness (coma). ? . How is this diagnosed? Hypoglycemia is diagnosed with a blood test to measure your blood glucose level. This blood test is done while you are having symptoms. Your health care provider may also do a physical exam and review your medical history. How is this treated? This condition can be treated by immediately eating or drinking something that contains sugar with 15 grams of fast-acting carbohydrate, such as: ? 4 oz (120 mL) of fruit juice. ? 4 oz (120 mL) of regular soda (not diet soda). ? Several pieces of hard candy. Check food labels to find out how many pieces to eat for 15 grams. ? 1 Tbsp (15 mL) of sugar or honey. ? 4 glucose tablets. ? 1 tube of glucose gel. Treating hypoglycemia if you have diabetes If you are alert and able to swallow safely, follow the 15:15 rule: ? Take 15 grams of a fast-acting carbohydrate. Talk with your health care provider about how much you should take. Options for getting 15 grams of fast-acting carbohydrate include: ? Glucose tablets (take 4 tablets). ? Several pieces of hard candy. Check food labels to find out how many pieces to eat for 15 grams. ? 4 oz (120 mL) of fruit juice. ? 4 oz (120 mL) of regular soda (not diet soda). ? 1 Tbsp (15 mL) of sugar or honey. ? 1 tube of glucose gel. ? Check your blood glucose 15 minutes after you take the carbohydrate. ? If the repeat blood glucose level is still at or below 70 mg/dL (3.9 mmol/L), take 15 grams of a carbohydrate again. ? If your blood glucose level does not increase above 70 mg/dL (3.9 mmol/L) after 3 tries, seek emergency medical care. ? After your blood glucose level returns to normal, eat a meal or a snack within 1 hour. Treating severe hypoglycemia Severe hypoglycemia is when your blood glucose level is below 54 mg/dL (3 mmol/L). Severe hypoglycemia is a medical emergency. Get medical help right away. If you have severe hypoglycemia and you cannot eat or drink, you will need to be given glucagon. A family member or close friend should learn how to check your blood glucose and how to give you glucagon. Ask your health care provider if you need to have an emergency glucagon kit available. Severe hypoglycemia may need to be treated in a hospital. The treatment may include getting glucose through an IV. You may also need treatment for the cause of your hypoglycemia. Follow these instructions at home: General instructions ? Take zzbw-giu-begeier and prescription medicines only as told by your health care provider. ? Monitor your blood glucose as told by your health care provider. ? If you drink alcohol: ? Limit how much you have to: ? 0?1 (more content not included)... Normal [facility] TSH With T4fr Reflexon 10-08 TSH Qn 0.58 m[IU]/L Normal 0.34-5.60 [facility] Comment on above: Performed By: #### 2 [id number] ####[facility] [id number] [place] [address] eGFRon 10-08-2022 GFR/1.73 sq M.predicted among non-blacks MDRD (S/P/Bld) [Vol rate/Area] 124 mL/min/1.73 m2 Normal >=59 [facility] Comment on above: Order Comment: Order added by Discern Expert. Result Comment: [employer] erlin kidney disease could be indicated at eGFR's of less than 60 mL/min/1.73m2. Kidney failure is indicated at less than 15 mL/min/1.73m2. Performed By: #### 2 [id number] ####[facility] [id number] [place] [address] PAP ACOG PANEL 2: 21 to 29on 10-23-2021 . . Normal [facility] Comment on above: Performed By: #### C BC #### [facility] [address] [address] [address] Rima Charles Age Gdln ACOG Testing 21-29 Normal [facility] Comment on above: Performed By: #### C BC #### [facility] [address] [place] [address] Dr. Rima Charles DIAGNOSIS: Comment [facility] Comment on above: Result Comment: NEGA TIVE FOR INTRAEPITHELIAL LESION OR MALIGNANCY. THIS SPECIMEN WAS RESCREENED PART OF OUR SKIVER MACHINE OPERATOR PROGRAM. Performed By: #### C BC #### [facility] [address] [place] [address] Dr. Rima Charles Methodology: Comment Normal [facility] Comment on above: Result Comment: This liquid based ThinPrep(R) pap test was screened with the use of an image guided system. Performed By: #### C BC #### [facility] [address] [place] [address] Dr. Rima Charles Note: Comment Normal [facility] Comment on above: Result Comment: The Pap smear is a screening test designed to aid in the detection of premalignant and malignant conditions of the uterine cervix. It is not a diagnostic procedure and should not be used as the sole means of detecting cervical cancer. Both false-positive and false-negative reports do occur. . Performed By: #### C BC #### [facility] [address] [place] [address] Dr. Rima Charles Performed by: Comment Normal [facility] Comment on above: Result Comment: Prince Cagle, Stunner (ASCP) Performed By: #### C BC #### [facility] [address] [place] [address] Dr. Rima Charles QC reviewed by: Comment Normal [facility] Comment on above: Result Comment: Amanda Morejon, Supervisory Stunner (ASCP) Performed By: #### C BC #### [facility] [address] [place] [address] Dr. Rima Charles Reflex Criteria: Comment [facility] Comment on above: Result Comment: The HPV DNA reflex criteria were not met with this specimen result therefore, no HPV testing was performed. . Performed By: #### C BC #### [facility] [address] [place] [address] Dr. Rima Charles Specimen adequacy: Comment Normal [facility] Comment on above: Result Comment: Sati sfactory for evaluation. Endocervical and/or squamous metaplastic cells (endocervical component) are present. Areas of partially obscuring blood are present. Performed By: #### C BC #### [facility] [address] [place] [address] Dr. Rima Charles FREE T4on 10-17-2021 Free T4 [Mass/Vol] 1.01 ng/dL Normal 0.76-1.[address] [facility] Comment on above: Performed By: #### F T4 #### [facility] [address] [place] [address] Dr. Rima Charles TSHon 10-17-2021 TSH 4.997 uIU/mL Critically high 0.358-3.[address] [facility] Comment on above: Performed By: #### T SH #### [facility] [address] [place] [address] Dr. Rima Charles VAGINITIS/VAGINOSIS DNA PROB Esteban 07-15-2021 Tamara species Negative Normal Negative [facility] Comment on above: Performed By: #### C BC #### [facility] [address] [place] [address] Dr. Rima Charles Gardnerella vaginalis Negative Normal Negative [facility] Comment on above: Performed By: #### C BC #### [facility] [address] [place] [address] Dr. Rima Charles Trichomonas vaginalis Negative Normal Negative [facility] Comment on above: Performed By: #### C BC #### [facility] [address] [place] [address] Dr. Rima Charles CHLAMYDIA/GONOCOCCUS FRANSISCO (SW AB/URINE/PAPon 05-09-2021 Chlamydia trachomatis, FRANSISCO Negative Normal Negative [facility] Comment on above: Performed By: #### C BC #### [facility] [address] [place] [address] Dr. Rima Charles Neisseria gonorrhoeae, FRANSISCO Negative Normal Negative [facility] Comment on above: Performed By: #### C BC #### [facility] [address] [address] [address] Rima Charles VAGINITIS/VAGINOSIS DNA PROB Esteban 05-08-2021 Tamara species Negative Normal Negative [facility] Comment on above: Performed By: #### V AGINT #### [facility] [address] [address] [address] Rima Charles Gardnerella vaginalis Negative Normal Negative [facility] Comment on above: Performed By: #### V AGINT #### [facility] [address] [address] [address] Rima Charles Trichomonas vaginalis Negative Normal Negative [facility] Comment on above: Performed By: #### V AGINT #### [facility] [address] [place] [address] Dr. Rima Charles TSHon 02-24-2021 TSH 4.494 uIU/mL Normal 0.470-4.680 [facility] Comment on above: Performed By: #### C BC #### [facility] [address] [place] [address] Dr. Rima Charles TSH RANGE SEE BELOW Normal [facility] Comment on above: Result Comment: <0.3 4 UIU/ml HYPERTHYROID 0.34-5.60 UIU/ml EUTHYROID >5.60 UIU/ml HYPOTHYROID Performed By: #### C BC #### [facility] [address] [address] [address] Rima Charles AFP MATERNAL FOR SPINA BIFID Aon 2021 AFP MoM 0.98 Normal [facility] Comment on above: Performed By: #### A FPMAT #### [facility] [address] [place] [address] Dr. Rima Charles AFP Value 36.3 ng/mL Normal [facility] Comment on above: Performed By: #### A FPMAT #### [facility] [address] [place] [address] Dr. Rima Charles AFP, Serum for Spina Bifida Report Normal [facility] Comment on above: Performed By: #### A FPMAT #### [facility] [address] [address] [address] Rima Charles Comment Comment Normal [facility] Comment on above: Result Comment: Kelly Moon, Ph.D., [facility] Director . References: Available Upon Request. . Multiples Of Median Cutoffs For AFP Elevations Gorman 2.5 Black 2.8 IDD 2.0 Twins 4.5 Abbreviation Definitions IDD - Insulin Dep Diabetes OSBR - Open Spina Bifida Risk . For further inquiries contact [facility] at [phone]. Performed By: #### A FPMAT #### [facility] [address] [address] [address] Rima Whitt Age Collection Date 16.0 weeks [facility] Comment on above: Performed By: #### A FPMAT #### [facility] [address] [address] [address] Rima Charles Gestat, Age Based on LMP Normal [facility] Comment on above: Result Comment: Reca lculations are not recommended when gestational dating by LMP and ultrasound are within 10 days. Performed By: #### A FPMAT #### [facility] [address] [address] [address] Rima Charles Insulin Dep Diabetes No Normal [facility] Comment on above: Performed By: #### A FPMAT #### [facility] [address] [place] [address] Dr. Rima Charles Interpretation Comment Normal [facility] Comment on above: Result Comment: Inte rpretation: Screen Negative . This result is screen negative for OSB. The AFP MoM calculated is based on the gestational age provided. MS-AFP can identify up to 80% of open neural tube defects. Closed neural tube defects and some open defects may not be detected by this test. This test does not screen for Down Syndrome or Trisomy 18. If screening for Down Syndrome or Trisomy 18 is desired, contact [facility] to discuss available options. The [employer] recommends amniocentesis be offered to women age 35 and older. Performed By: #### A FPMAT #### [facility] [address] [address] [address] Rima Charles [age] Normal [facility] Comment on above: Performed By: #### A FPMAT #### [facility] [address] [address] [address] Rima Charles Multiple Gestation No Normal [facility] Comment on above: Performed By: #### A FPMAT #### [facility] [address] [address] [address] Rima Charles OS[place] 1 [place] [address] Normal [facility] Comment on above: Performed By: #### A FPMAT #### [facility] [address] [address] [address] Rima Charles PDF . [facility] Comment on above: Performed By: #### A FPMAT #### [facility] [address] [place] [address] Dr. Rima Charles Race [facility] Comment on above: Performed By: #### A FPMAT #### [facility] [address] [place] [address] Dr. Rima Charles Test Results: Negative Normal [facility] Comment on above: Performed By: #### A FPMAT #### [facility] [address] [place] [address] Dr. Rima Charles HEP B SURFACE ANTIGEN SCREEN on 12-10-2020 HBsAg Screen Negative Normal Negative [facility] Comment on above: Performed By: #### H BSANS #### [facility] [address] [place] [address] Dr. Rima Charles HEPATITIS C ANTIBODYon 12-10 Hep C Virus Ab <0.1 Normal 0.0-0.9 [facility] Comment on above: Result Comment: Nega tive: < 0.8 Indeterminate: 0.8 - 0.9 Positive: > 0.9 . The CDC recommends that a positive HCV antibody result be followed up with a HCV Nucleic Acid Amplification test (625578). Performed By: #### H CV #### [facility] [address] [place] [address] Dr. Rima Charles HIV 1 AND 2 WITH REFLEXon HIV Screen 4th Generation wRfx Non-Reactive Normal Non Reactive [facility] Comment on above: Performed By: #### H IV12 #### [facility] [address] [place] [address] Dr. Rima Charles RPR QUANTon 12-10-2020 Rapid Plasma Reagin, Quant Non-Reactive Normal NonRea<1:1 [facility] Comment on above: Performed By: #### C BC #### [facility] [address] [place] [address] Dr. Rima Charles RUBELLA AB IGGon 12-10-2020 Rubella Antibodies, IgG 2.33 index Normal Immune >0.99 [facility] Comment on above: Result Comment: Non- immune <0.90 Equivocal 0.90 - 0.99 Immune >0.99 Performed By: #### R UBIGG #### [facility] [address] [place] [address] Dr. Rima Charles CBC AUTO DIFFon 12-09-2020 BASO # 0.0 103/ul Normal 0.0-0.1 [facility] Comment on above: Performed By: #### C BC #### [facility] [address] [place] [address] Dr. Rima Charles Basophils/100 WBC (Bld) 0.4 % Normal 0.2-2.0 [facility] Comment on above: Performed By: #### C BC #### [facility] [address] [place] [address] Dr. Rima Charles EO # 0.0 103/ul Normal 0.0-0.7 [facility] Comment on above: Performed By: #### C BC #### [facility] [address] [place] [address] Dr. Rima Charles Eosinophils/100 WBC (Bld) 0.6 % Critically low 0.9-7.0 [facility] Comment on above: Performed By: #### C BC #### [facility] [address] [place] [address] Dr. Rima Charles Erythrocyte distribution width (RBC) [Ratio] 12.0 % Normal 11.0-15.0 [facility] Comment on above: Performed By: #### C BC #### [facility] [address] [place] [address] Dr. Rima Charles Hematocrit (Bld) [Volume fraction] 37.5 % Normal 36.0-48.0 [facility] Comment on above: Performed By: #### C BC #### [facility] [address] [place] [address] Dr. Rima Charles Hemoglobin (Bld) [Mass/Vol] 13.2 g/dL Normal 12.0-16.0 [facility] Comment on above: Performed By: #### C BC #### [facility] [address] [place] [address] Dr. Rima Charles IG # 0.02 10e3/ul Normal 0.00-0.03 [facility] Comment on above: Performed By: #### C BC #### [facility] [address] [place] [address] Dr. Rima Charles IG % 0.3 % Normal 0.0-0.5 [facility] Comment on above: Performed By: #### C BC #### [facility] [address] [place] [address] Dr. Rima Charles LYMPH # 1.4 103/ul Normal 1.2-3.8 [facility] Comment on above: Performed By: #### C BC #### [facility] [address] [place] [address] Dr. Rima Charles Lymphocytes/100 WBC (Bld) 20.2 % Critically low 20.5-60.0 [facility] Comment on above: Performed By: #### C BC #### [facility] [address] [place] [address] Dr. Rima Charles MANUAL DIFF REQ NO Normal [facility] Comment on above: Performed By: #### C BC #### [facility] [address] [place] [address] Dr. Rima Charles MCH (RBC) [Entitic mass] 33.2 pg Normal 26.7-34.0 [facility] Comment on above: Performed By: #### C BC #### [facility] [address] [place] [address] Dr. Rima Charles MCHC (RBC) [Mass/Vol] 35.2 g/dL Normal 29.9-35.2 [facility] Comment on above: Performed By: #### C BC #### [facility] [address] [place] [address] Dr. Rima Charles MCV (RBC) [Entitic vol] 94.5 fL Normal 81.0-99.0 [facility] Comment on above: Performed By: #### C BC #### [facility] [address] [place] [address] Dr. Rima Charles MONO # 0.4 103/ul Normal 0.3-0.8 [facility] Comment on above: Performed By: #### C BC #### [facility] [address] [place] [address] Dr. Rima Charles Monocytes/100 WBC (Bld) 6.1 % Normal 1.7-12.0 [facility] Comment on above: Performed By: #### C BC #### [facility] [address] [place] [address] Dr. Rima Charles NEUT # 5.1 103/ul Normal 1.4-6.5 [facility] Comment on above: Performed By: #### C BC #### [facility] [address] [place] [address] Dr. Rima Charles Neutrophils/100 WBC (Bld) 72.4 % Normal 43.0-75.0 [facility] Comment on above: Performed By: #### C BC #### [facility] [address] [place] [address] Dr. Rima Charles Platelet mean volume (Bld) [Entitic vol] 11.2 fL Normal 9.5-13.5 [facility] Comment on above: Performed By: #### C BC #### [facility] [address] [place] [address] Dr. Rima Charles PLT 221 103/ul Normal 150-450 [facility] Comment on above: Performed By: #### C BC #### [facility] [address] [address] [address] Rima Charles RBC 3.97 106/ul Critically low 4.20-5.40 [facility] Comment on above: Performed By: #### C BC #### [facility] [address] [address] [address] Rima Charles WBC 7.1 103/ul Normal 4.0-11.0 [facility] Comment on above: Performed By: #### C BC #### [facility] [address] [address] [address] Rima Charles CULTURE URINEon 12-09-2020 CULTURE URINE Culture Observations: No growth Normal [facility] Comment on above: Performed By: #### C BC #### [facility] [address] [address] [address] Rima Charles GLYCOHEMOGLOBIN A1Con 2020 ADA RECOMMENDATION ADA THERAPEUTIC TARGET 6.0 - 7.0 ACTION SUGGESTED > 7.0 Normal [facility] Comment on above: Performed By: #### A 1C #### [facility] [address] [address] [address] Rima Charles Glucose [Mass/Vol] 111 mg/dL Normal [facility] Comment on above: Performed By: #### A 1C #### [facility] [address] [address] [address] Rima Charles HbA1c (Bld) [Mass fraction] 5.5 % Normal <=6.0 [facility] Comment on above: Performed By: #### A 1C #### [facility] [address] [address] [address] Rima Charles TAHIR BOX TEST PT SEND OUTo n 12-09-2020 SENT TO REF LAB 12/09/20 Normal [facility] Comment on above: Performed By: #### C BC #### [facility] [address] [address] [address] Rima Charles TSHon 09-21-2021 TSH 2.651 uIU/mL Normal 0.470-4.680 [facility] Comment on above: Performed By: #### C BC #### [facility] [address] [place], [place] [address] Dr. Rima Charles TSH RANGE SEE BELOW Normal [facility] Comment on above: Result Comment: <0.3 4 UIU/ml HYPERTHYROID 0.34-5.60 UIU/ml EUTHYROID >5.60 UIU/ml HYPOTHYROID Performed By: #### C BC #### [facility] [address] [place], [place] [address] Dr. Rima Charles TYPE AND SCREENon 12-09-2020 TYPE AND SCREEN Negative Normal [facility] Comment on above: Performed By: #### C BC #### [facility] [address] [place], [place] [address] Dr. Rima Charles US PREG TVon 12-02-2020 US PREG TV EXAMINATION: US PREG TV HISTORY: Urine test positive COMPARISON: No relevant comparison available. FINDINGS: GESTATIONAL SAC: Present and normal appearing. POLE: Present and normal appearing. YOLK SAC: Present. CARDIAC: Present. UTERUS: Normal size and appearance. OVARIES: Right: Corpus lutein cyst Left: Normal. CERVIX: 4.0 cm in length and closed. CUL-DE-SAC: Normal. OTHER: None. AGE BY LMP: 10 weeks, 0 days RENATO BY LMP: 06/30/2021 AGE BY US CRL: 10 weeks, 4 days RENATO BY US CRL: 06/26/2021 IMPRESSION: 1. Single live intrauterine . Electronically authenticated by: LILIANE POPE Date: 2020-12-02 09:34 Normal [facility] Vital Signs Date Time Vital Sign Value Performing Clinician Facility 08-17-2024 10:00-0400 Body mass index (BMI) [Ratio] 22.86 kg/m2 [facility] 08-17-2024 10:00-0400 Body weight 62.32 kg [facility] 08-17-2024 10:00-0400 Diastolic blood pressure 78 mm[Hg] [facility] 08-17-2024 10:00-0400 Systolic blood pressure 120 mm[Hg] [facility] 12-12-2023 14:19-0400 Body mass index (BMI) [Ratio] 21.15 kg/m2 Santosh Joanna DO Work Phone: [facility] 12-12-2023 14:19-0400 Body weight 57.66 kg Santosh Joanna DO Work Phone: [facility] 12-12-2023 14:19-0400 Diastolic blood pressure 62 mm[Hg] Santosh Joanna DO Work Phone: [facility] 12-12-2023 14:19-0400 Systolic blood pressure 104 mm[Hg] Santosh Joanna DO Work Phone: [facility] 08-08-2023 15:43-0400 Blood Pressure Location Ya Thornton [facility] 08-08-2023 15:43-0400 Diastolic blood pressure 60 mm[Hg] Ya Thornton [facility] 08-08-2023 15:43-0400 Heart rate 103 /min Ya Thornton [facility] 08-08-2023 15:43-0400 Respiratory rate 18 /min Ya Thornton [facility] 08-08-2023 15:43-0400 SaO2% (BldA) [Mass fraction] 100 % Ya Thornton [facility] 08-08-2023 15:43-0400 Systolic blood pressure 124 mm[Hg] Ya Thornton [facility] 03-09-2023 07:21-0500 Blood Pressure Location Ya Thornton [facility] 03-09-2023 07:21-0500 Body temperature 97.52 [degF] Ya Thornton [facility] 03-09-2023 07:21-0500 Diastolic blood pressure 60 mm[Hg] Ya Thornton [facility] 03-09-2023 07:21-0500 Heart rate 91 /min Ya Thornton [facility] 03-09-2023 07:21-0500 Respiratory rate 18 /min Ya Thornton [facility] 03-09-2023 07:21-0500 SaO2% (BldA) [Mass fraction] 100 % Ya Thornton [facility] 03-09-2023 07:21-0500 Systolic blood pressure 108 mm[Hg] Ya Thornton [facility] 02-21-2023 12:53-0500 Blood Pressure Location Ya Thornton [facility] 02-21-2023 12:53-0500 Diastolic blood pressure 72 mm[Hg] Ya Thornton [facility] 02-21-2023 12:53-0500 Heart rate 103 /min Ya Thornton [facility] 02-21-2023 12:53-0500 Respiratory rate 18 /min Ya Thornton [facility] 02-21-2023 12:53-0500 SaO2% (BldA) [Mass fraction] 99 % Ya Thornton [facility] 02-21-2023 12:53-0500 Systolic blood pressure 110 mm[Hg] Ya Thornton [facility] 11-30-2022 12:10-0400 Blood Pressure Location Agueda Gray [facility] 11-30-2022 12:10-0400 Body temperature 97.52 [degF] Agueda Gray [facility] 11-30-2022 12:10-0400 Diastolic blood pressure 70 mm[Hg] Agueda Gray [facility] 11-30-2022 12:10-0400 Heart rate 97 /min Agueda Gray [facility] 11-30-2022 12:10-0400 Systolic blood pressure 105 mm[Hg] Agueda Gray [facility] 11-11-2022 09:20-0400 Blood Pressure Location Ya Thornton [facility] 11-11-2022 09:20-0400 Body temperature 98.06 [degF] Ya Thornton [facility] 11-11-2022 09:20-0400 Diastolic blood pressure 62 mm[Hg] Ya Thornton [facility] 11-11-2022 09:20-0400 Heart rate 76 /min Ya Thornton [facility] 11-11-2022 09:20-0400 SaO2% (BldA) [Mass fraction] 98 % Ya Thornton [facility] 11-11-2022 09:20-0400 Systolic blood pressure 112 mm[Hg] Ya Thornton [facility] 05-03-2022 14:14-0500 Blood Pressure Location Ritu Desai [facility] 05-03-2022 14:14-0500 Body temperature 97.7 [degF] Ritu Desai [facility] 05-03-2022 14:14-0500 Diastolic blood pressure 62 mm[Hg] Ritu Desai [facility] 05-03-2022 14:14-0500 Heart rate 71 /min Ritu Desai [facility] 05-03-2022 14:14-0500 SaO2% (BldA) [Mass fraction] 98 % Ritu Desai [facility] 05-03-2022 14:14-0500 Systolic blood pressure 118 mm[Hg] Ritu Desai [facility] 2021 02:06-0400 Body weight 58.[address] SANTOSH MARSHALL [facility] Comment on above: Performed By: #### AFPMAT #### [facility] [address] [address] [address] Rima Charles Encounters Encounter Date Encounter Type Care Provider Facility Start: 01-07-2025 ambulatory Marta Almanzar Faci lity:[facility] Start: 08-17-2024 End: 08-17-2024 Office outpatient visit 5 minutes [facility] Joanna Nurse [facility] Comment on above: GA: 8w6d Start: 08-17-2024 End: 08-17-2024 ambulatory SANTOSH MARSHALL Not Available Start: 07-09-2024 End: 07-09-2024 ambulatory Marta Almanzar Facility:[facility] Start: 07-05-2024 End: 07-05-2024 ambulatory Ham Robins Facility:[facility] Start: 07-04-2024 End: 07-04-2024 ambulatory Marta Almanzar Facility:[facility] Start: 07-04-2024 End: 07-04-2024 Patient encounter procedure Marta Almanzar [facility] Start: 05-14-2024 End: 05-14-2024 ambulatory CARMITA JURADO [facility] Start: 05-14-2024 End: 05-14-2024 Subsequent hospital visit by physician Carmita Jurado MD Work Phone: [facility] Comment on above: Family history of au tism Start: 12-12-2023 End: 12-12-2023 ambulatory SANTOSH JOANNA Not Available Start: 12-12-2023 End: 12-12-2023 Bamboo flowsheet Santosh Joanna DO Work Phone: [facility] Start: 12-12-2023 End: 12-16-2023 Bamboo flowsheet Santosh Joanna DO Work Phone: [facility] Start: 12-12-2023 End: 12-16-2023 Clinisync Result Encounter Santosh Joanna DO Work Phone: [facility] Unsolicited Start: 12-12-2023 End: 12-12-2023 Patient encounter procedure Santosh Joanna DO Work Phone: [facility] Work Phone: Start: 12-12-2023 End: 12-12-2023 Periodic preventive med est patient 18-39 yrs Santosh Joanna DO Work Phone: [facility] Comment on above: Well woman exam with routine gynecological exam Start: 09-07-2023 End: 09-07-2023 ambulatory Ya Thornton Facility:[facility] [place] [facility] Start: 09-07-2023 End: 09-07-2023 Patient encounter procedure Ya Thornton [facility] Start: 08-08-2023 End: 08-08-2023 ambulatory Ya Thornton Facility:[facility] Start: 08-08-2023 End: 08-08-2023 Patient encounter procedure Ya Thornton [facility] Start: 07-12-2023 End: 07-12-2023 ambulatory OPAL Madrigal SUKH Facility:[facility] Start: 07-12-2023 End: 07-12-2023 Patient encounter procedure OPAL LUZ [facility] Start: 05-16-2023 End: 05-16-2023 ambulatory Ya Thornton Facility:[facility] [place] Start: 05-16-2023 End: 05-16-2023 ambulatory Ya Thornton Facility:[facility] Start: 04-01-2023 ambulatory Ya Thornton Facilit y:[facility] Start: 03-24-2023 End: 03-24-2023 ambulatory Ya hTornton Facility:[facility] [place] Start: 03-24-2023 End: 03-24-2023 Patient encounter procedure Ya Thornton [facility] Start: 03-22-2023 End: 03-22-2023 ambulatory Ya Thornton Facility:[facility] [facility] Start: 03-22-2023 End: 03-22-2023 Patient encounter procedure Ya Thornton [facility] Start: 03-09-2023 End: 03-09-2023 Lab Drop off Ya Thornton [facility] Start: 03-09-2023 End: 03-09-2023 ambulatory Ya Thornton Facility:[facility] [facility] Start: 03-09-2023 End: 03-09-2023 Patient encounter procedure Ya Thornton [facility] Start: 02-21-2023 End: 02-21-2023 Lab Drop off Ya Thornton [facility] Start: 02-21-2023 End: 02-21-2023 ambulatory Ya Thornton Facility:[facility] [place] Start: 02-21-2023 End: 02-21-2023 Patient encounter procedure Ya Thornton [facility] Start: 11-30-2022 End: 11-30-2022 ambulatory Agueda Gray Facility[facility] Start: 11-30-2022 End: 11-30-2022 Patient encounter procedure Agueda [facility] Start: 11-11-2022 [facility]ulatory [facility] Start: 11-11-2022 End: 11-11-2022 ambulatory Ya Thornton Facility:[facility] Start: 11-11-2022 End: 11-11-2022 Patient encounter procedure Ya Thornton [facility] Start: 10-08-2022 End: 10-08-2022 ambulatory Ya Thornton Facility:[facility] Start: 10-08-2022 End: 10-08-2022 ambulatory Ya Thornton Facility:[facility] Start: 05-03-2022 End: 05-03-2022 Patient encounter procedure Ritu Desai [facility] Start: 10-19-2021 End: 10-19-[address] SANTOSH MARSHALL Facility:[facility] Start: 10-17-2021 End: 10-18-[address] SANTOSH MARSHALL Facility:[facility] Start: 08-20-[address] SANTOSH MARSHALL Facility :[facility] Start: 07-13-2021 End: 07-13-[address] DOCTOR QUINONES Facility:[facility] Start: 05-06-2021 End: 05-06-[address] ERASMO TAMAYO Facility:[facility] Start: 02-24-2021 End: 02-25-[address] SANTOSH MARSHALL Facility:[facility] Start: 01-13-2021 End: 01-14-[address] SANTOSH MARSHALL Facility:[facility] Start: 12-09-2020 End: 12-10-[address] SANTOSH MARSHALL Facility:[facility] Start: 12-02-2020 End: 12-03-[address] SANTOSH MARSHALL Facility:[facility] Procedures Date Procedure Procedure Detail Performing Clinician Start: 08-17-2024 End: 08-17-2024 Urnls dip stick/tablet rgnt non-auto w/o micrscp Santosh Joanna DO Work Phone: Start: 12-12-2023 IGP,APTIMA HPV,AGE GDLN Santosh Joanna DO Work Phone: None (qualifier value) Lawson Desai Plan of Treatment Date Care Activity Detail Author Start: 01-01-2025 End: 01-01-2025 Patient encounter procedure 01/01/2025 2:00 PM EDT Office Visit [facility] [address] [place] [address] Santosh Marshall, DO [address], [place] [id number] [facility] Start: 12-17-2024 End: 12-17-2024 Patient encounter procedure 12/17/2024 3:00 PM EDT Office Visit [facility] [address] [place] [address] Santosh Marshall, DO [address] [place] [address] [facility] Start: 09-17-2024 End: 09-17-2024 Patient encounter procedure 09/17/2024 10:50 AM EDT Routine [facility] [address] [facility] [place] [address] Santosh Marshall, [address] [facility] [place] [address] [facility] Start: 08-17-2024 End: 08-17-2025 ABO/Rh ABO/Rh Lab Routine Missed menses , unspecified gestational age Expected: 08/17/2024 (Approximate), Expires: 08/17/2025 [facility] Comment on above: Expected: 08/17/2024 (Approximate), Expires: 08/17/2025 Start: 08-17-2024 End: 08-17-2025 Blood type and Indirect antibody screen panel - Blood Type and screen Lab Routine Missed menses , unspecified gestational age Expected: 08/17/2024 (Approximate), Expires: 08/17/2025 [facility] Comment on above: Expected: 08/17/2024 (Approximate), Expires: 08/17/2025 Start: 08-17-2024 End: 08-17-2025 Drugs of abuse panel - Urine by Screen method Rapid drug screen, urine Lab Routine , unspecified gestational age Encounter for supervision of normal first in first trimester Expected: 08/17/2024 (Approximate), Expires: 08/17/2025 [facility] Comment on above: Expected: 08/17/2024 (Approximate), Expires: 08/17/2025 Start: 08-09-2024 End: 11-09-2024 US Pelvis transvaginal US OB transvaginal Imaging Routine Missed menses Expected: 08/09/2024, Expires: 11/09/2024 [facility] Work Phone: Comment on above: Expected: 08/09/2024 , Expires: 11/09/2024 Start: 11-20-2023 COVID-19 (2023-04 5 season) COVID-19 ( season) [facility] Start: 11-20-2023 FLU (#1) FLU (#1) [facility] Start: 01-19-2022 ambulatory Ambulatory Facility:[facility] Start: 2019 Microscopic observat ion [Identifier] in Cervix by Cyto stain Pap Smear [facility] Start: 2017 Hepatitis B (1 of 3 - 19+ 3-dose series) Hepatitis B (1 of 3 - 19+ 3-dose series) [facility] Start: 2014 MenB (1 of 2 - MenB 2-Dose Series Bexsero) MenB (1 of 2 - MenB 2-Dose Series Bexsero) [facility] Start: 2013 HPV (1 - 3-dose series) HPV (1 - 3-d ose series) [facility] Start: 2011 Varicella (1 of 2 - 13+ 2-dose series) Varicella (1 of 2 - 13+ 2-dose series) [facility] Start: 2005 Tetanus Diphtheria a nd Pertussis Vaccines (1 - Tdap) Tetanus Diphtheria and Pertussis Vaccines (1 - Tdap) [facility] Start: 1999 MMR (1 of 1 - Standa rd series) MMR (1 of 1 - Standard series) [facility] Bacteria identified in Urine by Culture Urine culture Microbiology Routine Missed menses Ordered: 08/17/2024 [facility] [employer] Comment on above: Ordered: 08/17/2024 CBC W Auto Different ial panel - Blood CBC and differential Lab Routine Missed menses , unspecified gestational age Ordered: 08/17/2024 [facility] Comment on above: Ordered: 08/17/2024 Cytology Cervical or vaginal smear or scraping study Pap Smear Pathology and Cytology Routine Well woman exam with routine gynecological exam Ordered: 12/12/2023 [facility] [employer] Work Phone: Comment on above: Ordered: 12/12/2023 End: 05-14-2024 DNA Extraction and hold [facility] Work Phone: Comment on above: 1 Occurrences starti ng 05/14/2024 until 05/14/2024, 1 completed Hemoglobin A1c/Hemoglobin.total in Blood Hemoglobin A1c Lab Routine Missed menses , unspecified gestational age Ordered: 08/17/2024 [facility] Comment on above: Ordered: 08/17/2024 Hepatitis B virus surface Ag [Presence] in Serum or Plasma by Immunoassay Hepatitis B surface antigen Lab Routine Missed menses , unspecified gestational age Ordered: 08/17/2024 [facility] Comment on above: Ordered: 08/17/2024 Hepatitis C virus Ab [Presence] in Serum or Plasma by Immunoassay Hepatitis C antibody Lab Routine Missed menses , unspecified gestational age Ordered: 08/17/2024 [facility] Comment on above: Ordered: 08/17/2024 HIV-1/HIV-2 antigen/antibody combination immunoassay HIV-1 and HIV-2 antibodies Lab Routine Missed menses , unspecified gestational age Ordered: 08/17/2024 [facility] Comment on above: Ordered: 08/17/2024 Reagin Ab [Presence] in Serum by RPR RPR Lab Routine Missed menses , unspecified gestational age Ordered: 08/17/2024 [facility] Comment on above: Ordered: 08/17/2024 Rubella antibody, IgG Rubella an tibody, IgG Lab Routine Missed menses , unspecified gestational age Ordered: 08/17/2024 [facility] Comment on above: Ordered: 08/17/2024 Thyrotropin [Units/volume] in Serum or Plasma TSH Lab Routine Missed menses , unspecified gestational age Encounter for supervision of normal first in first trimester Ordered: 08/17/2024 [facility] Comment on above: Ordered: 08/17/2024 US Pelvis transvaginal US OB tra nsvaginal Imaging Routine Missed menses 08/17/2024 9:27 AM EDT [facility] Immunizations Immunization Date Immunization Notes Care Provider Fa logan 05-26-2021 tetanus toxoid, reduced diphtheria toxoid, and acellular pertussis vaccine, adsorbed Ya Thornton [facility] 10-21-2015 meningococcal B vaccine, fully recombinant Ya Thornton [facility] 09-15-2015 meningococcal ACWY vaccine, unspecified formulation Ya Thornton [facility] 09-15-2015 meningococcal B vaccine, fully recombinant Ya Thornton [facility] 06-22-2010 meningococcal ACWY vaccine, unspecified formulation Ya Thornton [facility] 06-22-2010 tetanus toxoid, reduced diphtheria toxoid, and acellular pertussis vaccine, adsorbed Ya Thornton [facility] 10-16-2003 DTaP, unspecified formulation Ya Thornton [facility] 10-16-2003 measles, mumps and rubella virus vaccine Ya Thornton [facility] 10-16-2003 poliovirus vaccine, unspecified formulation Ya Thornton [facility] 02-03-2000 DTaP, unspecified formulation Ya Thornton [facility] 01-26-1999 measles, mumps and rubella virus vaccine Ya Thornton [facility] 01-26-1999 varicella virus vaccine Ya Thornton [facility] 1998 DTaP, unspecified formulation Ya Thornton [facility] 1998 DTaP, unspecified formulation Ya Thornton [facility] 1998 DTaP, unspecified formulation Ya Thornton [facility] 1998 hepatitis B vaccine, pediatric or pediatric/adolescent dosage Ya Thornton [facility] NEGATED: Highlighted row has not occurred!11-29-2022 influenza virus vaccine, unspecified formulation Agueda Gray [facility] NEGATED: Highlighted row has not occurred!05-03-2022 influenza virus vaccine, unspecified formulation Ritu Desai [facility] Payers Date Payer Category Payer Blue [facility] BCBS [id number] 2023 Unknown [id number] 2023 Unknown [id number] 2023 Unknown 2023 Unknown [id number] 2022 Private Health Insurance [id number] 1998 Unknown [id number] 2..840.1.050439.3.579.2. 593 1998 Unknown [id number] 2.16840.1.653633.3.579.2. 593 1998 Unknown [id number] 2.16840.1.353776.3.579.2. 593 1998 Unknown [id number] 2.16840.1.591948.3.579.2. 593 1998 Unknown [id number] 2.16840.1.693799.3.579.2. 593 1998 Unknown [id number] 2.16840.1.914725.3.579.2. 593 1998 Unknown [id number] 2.16.840.1.090860.3.579.2. 593 1998 Unknown [id number] 2.16.840.1.915229.3.579.2. 593 1998 Unknown [id number] 2.16.840.1.277169.3.579.2. 593 1998 Unknown [id number] 2.16.840.1.681357.3.579.2. 593 1998 Unknown [id number] 2.16.840.1.382535.3.579.2. 727 1998 Unknown [id number] 2.16.840.1.445460.3.579.2. 727 1998 Unknown [id number] 2.16.840.1.100120.3.579.2. 727 1998 Unknown [id number] 2.16.840.1.660246.3.579.2. 727 1998 Unknown [id number] 2.16.840.1.427128.3.579.2. 727 1998 Unknown [id number] 2.16.840.1.540187.3.579.2. 727 1998 Unknown [id number] 2.16.840.1.712653.3.579.2. 727 1998 Unknown [id number] 2.16.840.1.769828.3.579.2. 727 1998 Unknown [id number] 2.16.840.1.978747.3.579.2. 727 1998 Unknown [id number] 2.16.840.1.892319.3.579.2. 727 1998 Unknown [id number] 2.16.840.1.486194.3.579.2. 727 1998 Unknown [id number] 2.16.840.1.847166.3.579.2. 727 1998 Unknown [id number] 2.16.840.1.830542.3.579.2. 727 1998 Unknown [id number] 2.16.840.1.865327.3.579.2. 727 1998 Unknown [id number] 2.16.840.1.311221.3.579.2. 727 1998 Unknown [id number] 2.16.840.1.421485.3.579.2. 727 1998 Unknown [id number] 2.16.840.1.038360.3.579.2. 479 1998 Unknown [id number] 2.16.840.1.098984.3.579.2. 727 1998 Unknown [id number] 2.16.840.1.889214.3.579.2. 727 1998 Unknown [id number] 2.16.840.1.866267.3.579.2. 727 1998 Unknown [id number] 2.16.840.1.454854.3.579.2. 727 1998 Unknown [id number] 2.16.840.1.233311.3.579.2. 727 1998 Unknown [id number] 2.16.840.1.999263.3.579.2. 727 1998 Unknown [id number] 2.16.840.1.180813.3.579.2. 727 1998 Unknown [id number] 2.16.840.1.424592.3.579.2. 1259 1998 Unknown [id number] 2.16.840.1.729310.3.579.2. 1259 1998 Unknown [id number] 2.16.840.1.130723.3.579.2. 1259 1959 Self-pay 1959 Unknown [id number] 1959 Unknown [id number] 1959 Unknown [id number] Unknown [id number] 2.16.840.1.904512.3.579.2. 593 Social History Date Type Detail Facility Start: 05-03-2022 End: 11-17-2022 Tobacco smoking status Never smoked tobacco (finding) [facility] Tobacco smoking status Never Fishe [facility] Start: 07-12-2023 End: 12-12-2023 Sex Assigned At Female [facility] Start: 12-12-2023 End: 08-17-2024 Alcoholic beverage intake Current drinker of alcohol (finding) [facility] Start: 07-12-2023 End: 12-12-2023 History of Social function [facility] Start: 11-17-2022 Alcohol Comment occasional alcohol u se [facility] Start: 1998 Sex assigned at Not on file [facility] Tobacco smoking stat [facility] Tobacco smoking consumption unknown [facility] Sexual Orientation [facility] Start: 07-02-2009 Sex Female (finding) [facility] Start: 06-30-2024 [facility] Medical Equipment Procedure Code Equipment Code Equipment Origin al Text Equipment Identifier Dates Glucose Test Str ips, See Instructions, 1 EA, 3, Glucose Test Strips, [facility], Supply, 166, cm, 10/08/22 15:10:00 EDT, Height/Length Dosing, 57.8, kg, 10/08/22 15:10:00 EDT, Weight Dosing Start: 10-08-2022 Lancets, See Instructions, 100 lancet(s), 3, Lancets, [facility], Supply, 166, cm, 10/08/22 15:10:00 EDT, Height/Length Dosing, 57.8, kg, 10/08/22 15:10:00 EDT, Weight Dosing Start: 10-08-2022 Glucose Test Str ips, See Instructions, 1 EA, 3, Glucose Test Strips, [facility], Supply, 166, cm, 10/08/22 15:10:00 EDT, Height/Length Dosing, 57.8, kg, 10/08/22 15:10:00 EDT, Weight Dosing Start: 10-08-2022 Lancets, See Instructions, 100 lancet(s), 3, Lancets, [facility], Supply, 166, cm, 10/08/22 15:10:00 EDT, Height/Length Dosing, 57.8, kg, 10/08/22 15:10:00 EDT, Weight Dosing Start: 10-08-2022 Glucose Test Str ips, See Instructions, 1 EA, 3, Glucose Test Strips, [facility], Supply, 166, cm, 10/08/22 15:10:00 EDT, Height/Length Dosing, 57.8, kg, 10/08/22 15:10:00 EDT, Weight Dosing Start: 10-08-2022 Lancets, See Instructions, 100 lancet(s), 3, Lancets, [facility], Supply, 166, cm, 10/08/22 15:10:00 EDT, Height/Length Dosing, 57.8, kg, 10/08/22 15:10:00 EDT, Weight Dosing Start: 10-08-2022 Glucose Test Str ips, See Instructions, 1 EA, 3, Glucose Test Strips, [facility], Supply, 166, cm, 10/08/22 15:10:00 EDT, Height/Length Dosing, 57.8, kg, 10/08/22 15:10:00 EDT, Weight Dosing Start: 10-08-2022 Lancets, See Instructions, 100 lancet(s), 3, Lancets, [facility], Supply, 166, cm, 10/08/22 15:10:00 EDT, Height/Length Dosing, 57.8, kg, 10/08/22 15:10:00 EDT, Weight Dosing Start: 10-08-2022 Glucose Test Str ips, See Instructions, 1 EA, 3, Glucose Test Strips, [facility], Supply, 166, cm, 10/08/22 15:10:00 EDT, Height/Length Dosing, 57.8, kg, 10/08/22 15:10:00 EDT, Weight Dosing Start: 10-08-2022 Lancets, See Instructions, 100 lancet(s), 3, Lancets, [facility], Supply, 166, cm, 10/08/22 15:10:00 EDT, Height/Length Dosing, 57.8, kg, 10/08/22 15:10:00 EDT, Weight Dosing Start: 10-08-2022 Glucose Test Str ips, See Instructions, 1 EA, 3, Glucose Test Strips, [facility], Supply, 166, cm, 10/08/22 15:10:00 EDT, Height/Length Dosing, 57.8, kg, 10/08/22 15:10:00 EDT, Weight Dosing Start: 10-08-2022 Lancets, See Instructions, 100 lancet(s), 3, Lancets, [facility], Supply, 166, cm, 10/08/22 15:10:00 EDT, Height/Length Dosing, 57.8, kg, 10/08/22 15:10:00 EDT, Weight Dosing Start: 10-08-2022 Glucose Test Str ips, See Instructions, 1 EA, 3, Glucose Test Strips, [facility], Supply, 166, cm, 10/08/22 15:10:00 EDT, Height/Length Dosing, 57.8, kg, 10/08/22 15:10:00 EDT, Weight Dosing Start: 10-08-2022 Lancets, See Instructions, 100 lancet(s), 3, Lancets, [facility], Supply, 166, cm, 10/08/22 15:10:00 EDT, Height/Length Dosing, 57.8, kg, 10/08/22 15:10:00 EDT, Weight Dosing Start: 10-08-2022 Glucose Test Str ips, See Instructions, 1 EA, 3, Glucose Test Strips, [facility], Supply, 166, cm, 10/08/22 15:10:00 EDT, Height/Length Dosing, 57.8, kg, 10/08/22 15:10:00 EDT, Weight Dosing Start: 10-08-2022 Lancets, See Instructions, 100 lancet(s), 3, Lancets, [facility], Supply, 166, cm, 10/08/22 15:10:00 EDT, Height/Length Dosing, 57.8, kg, 10/08/22 15:10:00 EDT, Weight Dosing Start: 10-08-2022 Glucose Test Str ips, See Instructions, 1 EA, 3, Glucose Test Strips, [facility], Supply, 166, cm, 10/08/22 15:10:00 EDT, Height/Length Dosing, 57.8, kg, 10/08/22 15:10:00 EDT, Weight Dosing Start: 10-08-2022 Lancets, See Instructions, 100 lancet(s), 3, Lancets, [facility], Supply, 166, cm, 10/08/22 15:10:00 EDT, Height/Length Dosing, 57.8, kg, 10/08/22 15:10:00 EDT, Weight Dosing Start: 10-08-2022 Glucose Test Str ips, See Instructions, 1 EA, 3, Glucose Test Strips, [facility], Supply, 166, cm, 10/08/22 15:10:00 EDT, Height/Length Dosing, 57.8, kg, 10/08/22 15:10:00 EDT, Weight Dosing Start: 10-08-2022 Lancets, See Instructions, 100 lancet(s), 3, Lancets, [facility], Supply, 166, cm, 10/08/22 15:10:00 EDT, Height/Length Dosing, 57.8, kg, 10/08/22 15:10:00 EDT, Weight Dosing Start: 10-08-2022 Glucose Test Str ips, See Instructions, 1 EA, 3, Glucose Test Strips, [facility], Supply, 166, cm, 10/08/22 15:10:00 EDT, Height/Length Dosing, 57.8, kg, 10/08/22 15:10:00 EDT, Weight Dosing Start: 10-08-2022 Lancets, See Instructions, 100 lancet(s), 3, Lancets, [facility], Supply, 166, cm, 10/08/22 15:10:00 EDT, Height/Length Dosing, 57.8, kg, 10/08/22 15:10:00 EDT, Weight Dosing Start: 10-08-2022 Glucose Test Str ips, See Instructions, 1 EA, 3, Glucose Test Strips, [facility], Supply, 166, cm, 10/08/22 15:10:00 EDT, Height/Length Dosing, 57.8, kg, 10/08/22 15:10:00 EDT, Weight Dosing Start: 10-08-2022 Lancets, See Instructions, 100 lancet(s), 3, Lancets, [facility], Supply, 166, cm, 10/08/22 15:10:00 EDT, Height/Length Dosing, 57.8, kg, 10/08/22 15:10:00 EDT, Weight Dosing Start: 10-08-2022 Functional Status Date Assessment Result Facility 08-08-2023 Functional Status N/A [facility] 03-09-2023 Functional Status N/A [facility] 02-21-2023 Functional Status N/A [facility] 11-30-2022 Functional Status N/A [facility] 11-11-2022 Functional Status N/A [facility] 05-03-2022 Functional Status N/A [facility] Clinical Notes 05-03-2022 to 08-17-2024 Carmita Tapia LPN - 08/17/2024 9:30 AM Denisse Villarreal LPN - 12/12/2023 2:00 PM EDTLaboratoryLaboratoryLaboratoryLaboratoryLaboratoryLaboratoryRadiologyLaborato ryRadiologyLaboratoryLaboratory Note Date & Type Note Facility 08-17-2024 History of Present illness Narrative Reason for Appointment: Patient ID: Yana Church is a 24 y.o. female who presents for Amenorrhea Patient presents today for a Nurse OB Intake appointment. Patient is [id number] with a Estimated Date of Delivery: 03/23/25 OB History Para Term AB Living 2 1 1 1 SAB IAB Ectopic Multiple Live Births 1 # Outcome Date GA Lbr Yuri/2nd Weight Sex Type Anes PTL Lv 2 Current 1 05/30/21 4 lb F Vag-Spont FREDRICK Current Medications: has a current medication list which includes the following prescription(s): levothyroxine and magnesium oxide. Medical History: Active Ambulatory Problems Diagnosis Date Noted No Active Ambulatory Problems Resolved Ambulatory Problems Diagnosis Date Noted No Resolved Ambulatory Problems Past Medical History: Diagnosis Date BMI 23.0-23.9, adult Thyroid disease (CMS/HCC) Well woman exam Family History Problem Relation Name Age of Onset Stomach cancer Mother Diabetes Father Hypertension Father Mental illness Father Cancer Father Cancer Maternal Grandmother Hypertension Maternal Grandmother Diabetes Maternal Grandmother Cancer Paternal Grandmother Diabetes Paternal Grandfather Social History Tobacco Use Smoking status: Never Smokeless tobacco: Not on file Substance Use Topics Alcohol use: Yes Comment: occasional alcohol use Drug use: Never Past Surgical History: Procedure Laterality Date PAP SMEAR 10/19/2021 negative No Known Allergies Vitals: Estimated body mass index is 22.86 kg/m as calculated from the following: Height as of 11/29/22: 5' 5 . Weight as of this encounter: 137 lb 6.4 oz. BP: 120/78 Patient's last menstrual period was 06/16/2024. Assessment/Plan Diagnoses and all orders for this visit: Missed menses - US OB transvaginal; Future - Type and screen; Future - ABO/Rh; Future - CBC and differential - Hemoglobin A1c - RPR - Rubella antibody, IgG - Hepatitis B surface antigen - Hepatitis C antibody - HIV-1 and HIV-2 antibodies - Urine culture - POCT , urine manually resulted - POCT urinalysis dipstick manually resulted - TSH , unspecified gestational age - Type and screen; Future - ABO/Rh; Future - CBC and differential - Hemoglobin A1c - RPR - Rubella antibody, IgG - Hepatitis B surface antigen - Hepatitis C antibody - HIV-1 and HIV-2 antibodies - Rapid drug screen, urine; Future - TSH Encounter for supervision of normal first in first trimester - Rapid drug screen, urine; Future - TSH Nonintractable headache, unspecified chronicity pattern, unspecified headache type - magnesium oxide (Mag-Ox) 400 MG tablet; Take 1 tablet (400 mg) by mouth Daily Nurse Note: OB Intake: Patient presents today for first OB visit. Patients history has been reviewed in great detail including any potential risks. Patient signed consent forms and patient desires testing in both trimesters. Patient currently has no complaints and has been advised to drink 6-8 glasses of water a day, eat no raw or undercooked meat, and stay away [facility]. Patient has also been advised to not change litter boxes and eat 6 small meals a day. Patient has been consulted regarding the do's and don'ts of . Patient was given labs and all questions and concerns were answered. Patient was sent in Magnesium for headaches. Patient given [place] labs to do with initial labs along with TSH. Patient given work note to allow break at work for snacks. Follow Up: Patient is to return in 4 weeks for routine OB appointment. Up: Patient is to have labs drawn at directed and return to office for initial OB appointment with provider. Patient may call office as needed with any concerns or questions. Nurse Visit Completed by: Carmita Tapia LPN documented in this encounter [facility] 07-09-2024 Note Patient Education Endocrinology Hypothyroidism Hypothyroidism is when the thyroid gland does not make enough of certain hormones. This is called an underactive thyroid. The thyroid gland is a small gland located in the lower front part of the neck, just in front of the windpipe (trachea). This gland makes hormones that help control how the body uses food for energy (metabolism) as well as how the heart and brain function. These hormones also play a role in keeping your bones strong. When the thyroid is underactive, it produces too little of the hormones thyroxine (T4) and triiodothyronine (T3). What are the causes? This condition may be caused by: ??? Adolfo's disease. This is a disease in which the body's disease-fighting system (immune system) attacks the thyroid gland. This is the most common cause. ??? Viral infections. ??? . ??? Certain medicines. ??? defects. ??? Problems with a gland in the center of the brain (pituitary gland). ??? Lack of enough iodine in the diet. Other causes may include: ??? Past radiation treatments to the head or neck for cancer. ??? Past treatment with radioactive iodine. ??? Past exposure to radiation in the environment. ??? Past surgical removal of part or all of the thyroid. What increases the risk? You are more likely to develop this condition if: ??? You are female. ??? You have a family history of thyroid conditions. ??? You use a medicine called lithium. ??? You take medicines that affect the immune system (immunosuppressants). What are the signs or symptoms? Common symptoms of this condition include: ??? Not being able to tolerate cold. ??? Feeling as though you have no energy (lethargy). ??? Lack of appetite. ??? Constipation. ??? Sadness or depression. ??? Weight gain that is not explained by a change in diet or exercise habits. ??? Menstrual irregularity. ??? Dry skin, coarse hair, or brittle nails. Other symptoms may include: ??? Muscle pain. ??? Slowing of thought processes. ??? Poor memory. How is this diagnosed? This condition may be diagnosed based on: ??? Your symptoms, your medical history, and a physical exam. ??? Blood tests. You may also have imaging tests, such as an ultrasound or MRI. How is this treated? This condition is treated with medicine that replaces the thyroid hormones that your body does not make. After you begin treatment, it may take several weeks for symptoms to go away. Follow these instructions at home: ??? Take gzou-uyk-kujgowf and prescription medicines only as told by your health care provider. ??? If you start taking any new medicines, tell your health care provider. ??? Keep all follow-up visits as told by your health care provider. This is important. ? As your condition improves, your dosage of thyroid hormone medicine may change. ? You will need to have blood tests regularly so that your health care provider can monitor your condition. Contact a health care provider if: ??? Your symptoms do not get better with treatment. ??? You are taking thyroid hormone replacement medicine and you: ? Sweat a lot. ? Have tremors. ? Feel anxious. ? Lose weight rapidly. ? Cannot tolerate heat. ? Have emotional swings. ? Have diarrhea. ? Feel weak. Get help right away if: ??? You have chest pain. ??? You have an irregular heartbeat. ??? You have a rapid heartbeat. ??? You have difficulty breathing. These symptoms may be an emergency. Get help right away. Call 911. ??? Do not wait to see if the symptoms will go away. ??? Do not drive yourself to the hospital. Summary ??? Hypothyroidism is when the thyroid gland does not make enough of certain hormones (it is underactive). ??? When the thyroid is underactive, it produces too little of the hormones thyroxine (T4) and triiodothyronine (T3). ??? The most common cause is Adolfo's disease, a disease in which the body's disease-fighting system (immune system) attacks the thyroid gland. The condition can also be caused by viral infections, medicine, , or past radiation treatment to the head or neck. ??? Symptoms may include weight gain, dry skin, constipation, feeling as though you do not have energy, and not being able to tolerate cold. ??? This condition is treated with medicine to replace the thyroid hormones that your body does not make. This information is not intended to replace advice given to you by your health care provider. Make sure you discuss any questions you have with your health care provider. Document Revised: 03/09/2022 Document Reviewed: 03/09/2022 [employer] Patient Education ? 2023 [employer] Obstetrics and Gynecology Health Maintenance, Female Adopting a healthy lifestyle and getting preventive care are important in promoting health and wellness. Ask your health care provider about: ??? The right schedule for you to have regular tests and exams. ??? Things (more content not included)... [facility] 07-05-2024 Note Patient Education ENT How to Perform a Sinus Rinse A sinus rinse is a home treatment. It rinses your sinuses with a mixture of salt and water (saline solution). Sinuses are air-filled spaces in your skull behind the bones of your face and forehead. They open into your nasal cavity. A sinus rinse can help to clear your nasal cavity. It can clear mucus, dirt, dust, or pollen. You may do a sinus rinse when you have: ??? A cold. ??? A virus. ??? Allergies. ??? A sinus infection. ??? A stuffy nose. What are the risks? A sinus rinse is normally very safe and helpful. However, there are a few risks. These include: ??? A burning feeling in the sinuses. This may happen if you do not make the saline solution as told. Follow all directions. ??? Nasal irritation. ??? Infection from unclean water. This is rare, but it can happen. Do not do a sinus rinse if you have had: ??? Ear or nasal surgery. ??? An ear infection. ??? Plugged ears. Supplies needed: ??? Saline solution or powder. ??? Distilled or germ-free (sterile) water may be needed to mix with saline powder. ? You may use boiled and cooled tap water. Boil tap water for 5 minutes. Cool the water until it is lukewarm. Use within 24 hours. ? Do not use regular tap water to mix with the saline solution. ??? Neti pot or nasal rinse bottle. These release the saline solution into your nose and through your sinuses. You can buy neti pots and rinse bottles: ? At your local pharmacy. ? At a health food store. ? Online. How to do a sinus rinse 1. Wash your hands with soap and water for at least 20 seconds. If you cannot use soap and water, use hand evaporator repairer. 2. Wash your device using the directions that came with it. 3. Dry your device. 4. Use the solution that comes with your device or one that is sold separately in stores. Follow the mixing directions on the package if you need to mix with germ-free or distilled water. 5. Fill your device with the amount of saline solution stated in the device instructions. 6. Stand by a sink and tilt your head sideways over the sink. 7. Place the spout of the device in your upper nostril (the one closer to the ceiling). 8. Gently pour or squeeze the saline solution into your nasal cavity. The liquid should drain to your lower nostril if you are not too stuffed up (congested). 9. While rinsing, breathe through your open mouth. 10. Gently blow your nose to clear any mucus and rinse solution. Blowing too hard may cause ear pain. 11. Turn your head in the other direction and repeat in your other nostril. 12. Clean and rinse your device with clean water. 13. Air-dry your device. Talk with your doctor or pharmacist if you have questions about how to do a sinus rinse. Summary ??? A sinus rinse is a home treatment. It rinses your sinuses with a mixture of salt and water (saline solution). ??? A sinus rinse can clear mucus, dirt, dust, or pollen. ??? A sinus rinse is normally very safe and helpful. Follow all instructions carefully. This information is not intended to replace advice given to you by your health care provider. Make sure you discuss any questions you have with your health care provider. Document Revised: 08/24/2021 Document Reviewed: 08/24/2021 [employer] Patient Education ? 2023 [employer]. Infectious Disease Sinus Infection, Adult A sinus infection is soreness and swelling (inflammation) of your sinuses. Sinuses are hollow spaces in the bones around your face. They are located: ??? Around your eyes. ??? In the middle of your forehead. ??? Behind your nose. ??? In your cheekbones. Your sinuses and nasal passages are lined with a fluid called mucus. Mucus drains out of your sinuses. Swelling can trap mucus in your sinuses. This lets germs (bacteria, virus, or fungus) grow, which leads to infection. Most of the time, this condition is caused by a virus. What are the causes? Allergies. ??? Asthma. ??? Germs. ??? Things that block your nose or sinuses. ??? Growths in the nose (nasal polyps). ??? Chemicals or irritants in the air. ??? A fungus. This is rare. What increases the risk? Having a weak body defense system (immune system). ??? Doing a lot of swimming or diving. ??? Using nasal sprays too much. ??? Smoking. What are the signs or symptoms? The main symptoms of this condition are pain and a feeling of pressure around the sinuses. Other symptoms include: ??? Stuffy nose (congestion). This may make it hard to breathe through your nose. ??? Runny nose (drainage). ??? Soreness, swelling, and warmth in the sinuses. ??? A cough that may get worse at night. ??? Being unable to smell and taste. ??? Mucus that collects in the throat or the back of the nose (postnasal drip). This may cause a sore throat or bad breath. ??? Being very tired (fatigued). ??? A fever. How is this diagnosed? Your s (more content not included)... [facility] 12-12-2023 History of Present illness Narrative Reason for Appointment: Patient ID: Yana Church is a 23 y.o. female who presents for Well Women Visit Patient presents today for Annual Exam. MEDICATIONS Current Outpatient Medications Medication Instructions levothyroxine (SYNTHROID, LEVOXYL) 112 mcg, Oral, Daily ALLERGIES No Known Allergies PROBLEMS Active Ambulatory Problems Diagnosis Date Noted No Active Ambulatory Problems Resolved Ambulatory Problems Diagnosis Date Noted No Resolved Ambulatory Problems Past Medical History: Diagnosis Date BMI 23.0-23.9, adult Thyroid disease (CMS/HCC) Well woman exam HISTORY PAST MEDICAL HISTORY SOCIAL HISTORY Past Medical History: Diagnosis Date BMI 23.0-23.9, adult Thyroid disease ([facility]/HCC) Well woman exam Social History Tobacco Use Smoking status: Never Smokeless tobacco: Not on file Substance Use Topics Alcohol use: Yes Comment: occasional alcohol use Drug use: Never FAMILY HISTORY Family History Problem Relation Name Age of Onset Stomach cancer Mother Diabetes Father Hypertension Father Mental illness Father Cancer Father Cancer Maternal Grandmother Hypertension Maternal Grandmother Diabetes Maternal Grandmother Cancer Paternal Grandmother Diabetes Paternal Grandfather SURGICAL HISTORY Past Surgical History: Procedure Laterality Date PAP SMEAR 10/19/2021 negative REVIEW OF SYSTEMS Review of Systems: Review of Systems All other systems reviewed and are negative. OBJECTIVE Objective: Physical Exam Constitutional: Appearance: Normal appearance. She is well-developed. Genitourinary: Vulva normal. Breasts: Breasts are soft. Right: Normal. Left: Normal. Cardiovascular: Rate and Rhythm: Normal rate and regular rhythm. Pulmonary: Effort: Pulmonary effort is normal. Breath sounds: Normal breath sounds. Abdominal: General: Bowel sounds are normal. There is no distension. Palpations: Abdomen is soft. Tenderness: There is no abdominal tenderness. There is no guarding or rebound. Musculoskeletal: General: No swelling. Normal range of motion. Right lower leg: No edema. Left lower leg: No edema. Neurological: Mental Status: She is alert and oriented to person, place, and time. Skin: General: Skin is warm and dry. Psychiatric: Mood and Affect: Mood normal. Behavior: Behavior normal. Vitals and nursing note reviewed. Exam conducted with a typesetter apprentice present. Vitals: Estimated body mass index is 21.15 kg/m as calculated from the following: Height as of 11/29/22: 5' 5 . Weight as of this encounter: 127 lb 1.9 oz. BP: 104/62 Patient's last menstrual period was 12/04/2023. ASSESSMENT & PLAN ICD-10-CM 1. Well woman exam with routine gynecological exam Z01.419 Pap Smear Annual Exam: Patient presents today for an annual exam. Patient states she is doing well and has no complaints. Pap was obtained without difficulty. Follow Up: Patient is to return in one year for annual unless needed otherwise. Documented by Daiana Villarreal LPN on behalf of: Santosh Marshall DO documented in this encounter [facility] 08-08-2023 Hospital Discharge instructions Patient Education 08/08/2023 16:25:47 Dysmenorrhea Dysmenorrhea Dysmenorrhea refers to cramps caused by the muscles of the uterus tightening (mk) during a menstrual period. Dysmenorrhea may be mild, or it may be severe enough to interfere with everyday activities for a few days each month. Primary dysmenorrhea is menstrual cramps that last a couple of days when a female starts having menstrual periods or soon after. As a female gets older or has a baby, the cramps will usually lessen or disappear. Secondary dysmenorrhea begins later in life and is caused by a disorder in the reproductive system. It lasts longer, and it may cause more pain than primary dysmenorrhea. The pain may start before the period and last a few days after the period. What are the causes? Dysmenorrhea is usually caused by an underlying problem, such as: Endometriosis. The tissue that lines the uterus (endometrium) growing outside of the uterus in other areas of the body. Adenomyosis. Endometrial tissue growing into the muscular espino of the uterus. Pelvic congestive syndrome. Blood vessels in the pelvis that fill with blood just before the menstrual period. Overgrowth of cells (polyps) in the endometrium or the lower part of the uterus (cervix). Uterine prolapse. The uterus dropping down into the vagina due to stretched or weak muscles. Bladder problems, such as infection or inflammation. Intestinal problems, such as a tumor or irritable bowel syndrome. Cancer of the reproductive organs or bladder. Other causes of this condition may result from: A severely tipped uterus. A cervix that is closed or has a small opening. Noncancerous (benign) tumors in the uterus (fibroids). Pelvic inflammatory disease (PID). Pelvic scarring (adhesions) from a previous surgery. An ovarian cyst. An IUD (intrauterine device). What increases the risk? You are more likely to develop this condition if: You are younger than 30 years old. You started puberty early. You have irregular or heavy bleeding. You have never given . You have a family history of dysmenorrhea. You smoke or use nicotine products. You have high body weight or a low body weight. What are the signs or symptoms? Symptoms of this condition include: Cramping, throbbing pain in lower abdomen or lower back, or a feeling of fullness in the lower abdomen. Periods lasting for longer than 7 days. Headaches. Bloating. Fatigue. Nausea or vomiting. Diarrhea or loose stools. Sweating or dizziness. How is this diagnosed? This condition may be diagnosed based on: Your symptoms. Your medical history. A physical exam. Blood tests. A Pap test. This is a test in which cells from the cervix are tested for signs of cancer or infection. A test. You may also have other tests, including: Imaging tests, such as: ?Ultrasound. ?A procedure to remove and examine a sample of endometrial tissue (dilation and curettage, D&C). ?A procedure to visually examine the inside of: ?The uterus (hysteroscopy). ?The abdomen or pelvis (laparoscopy). ?The bladder (cystoscopy). ?X-rays. CT scan. MRI. How is this treated? Treatment depends on the cause of the dysmenorrhea. Treatment may include medicines, such as: Pain medicines. Hormone replacement therapy. ?Injections of progesterone to stop the menstrual period. ? control pills that contain the hormone progesterone. ?An IUD that contains the hormone progesterone. NSAIDs, such as ibuprofen. These may help to stop the production of hormones that cause cramps. Antidepressant medicines. Other treatment may include: Surgery to remove adhesions, endometriosis, ovarian cysts, fibroids, or the entire uterus (hysterectomy). Endometrial ablation. This is a procedure to destroy the endometrium. Presacral neurectomy. This is a procedure to cut the nerves in the bottom of the spine (sacrum) that go to the reproductive organs. Sacral nerve stimulation. This is a procedure to apply an electric current to nerves in the sacrum. Exercise and physical therapy. Meditation, yoga, and acupuncture. Work with your health care provider to determine what treatment or combination of treatments is best for you. Follow these instructions at home: Relieving pain and cramping If directed, apply heat to your lower back or abdomen when you experience pain or cramps. Use the heat source that your health care provider recommends, such as a moist heat pack or a heating pad. ?Place a towel between your skin and the heat source. ?Leave the heat on for 20 30 minutes. ?Remove the heat if your skin turns bright red. This is especially important if you are unable to feel pain, heat, or cold. You may have a greater risk of getting burned. Do not sleep with a heating pad on. Exercise. Activities such as walking, swimming, or biking can help to relieve cramps. Massage your lower back or abdomen to help relieve pain. General instructions Take [id number] and prescription medicines only as told by your health care provider. Ask your health care provider if the medicine prescribed to you requires you to avoid driving or using machinery. Avoid alcohol and caffeine during and right before your period. These can make cramps worse. Do not use any products that contain nicotine or tobacco. These products include cigarettes, chewing tobacco, and vaping devices, such as e-cigarettes. If you need help quitting, ask your health care provider. Keep all follow-up visits. This is important. Contact a health care provider if: You have pain that gets worse or does not get better with medicine. You have pain with sex. You develop nausea or vomiting with your period that is not controlled with medicine. Get help right away if: You faint. Summary Dysmenorrhea refers to cramps caused by the muscles of the uterus tightening (mk) during a menstrual period. Dysmenorrhea may be mild, or it may be severe enough to interfere with everyday activities for a few days each month. Treatment depends on the cause of the dysmenorrhea. Work with your health care provider to determine what treatment or combination of treatments is best for you. This information is not intended to replace advice given to you by your health care provider. Make sure you discuss any questions you have with your health care provider. Document Revised: 10/22/2020 Document Reviewed: 10/22/2020 [employer] Patient Education 2022 [employer]. 08/08/2023 16:25:44 Hemorrhoids Hemorrhoids Hemorrhoids are swollen veins in and around the rectum or anus. There are two types of hemorrhoids: Internal hemorrhoids. These occur in the veins that are just inside the rectum. They may poke through to the outside and become irritated and painful. External hemorrhoids. These occur in the veins that are outside the anus and can be felt as a painful swelling or hard lump near the anus. Most hemorrhoids do not cause serious problems, and they can be managed with home treatments such as diet and lifestyle changes. If home treatments do not help the symptoms, procedures can be done to shrink or remove the hemorrhoids. What are the causes? This condition is caused by increased pressure in the anal area. This pressure may result from various things, including: Constipation. Straining to have a bowel movement. Diarrhea. . Obesity. Sitting for long periods of time. Heavy lifting or other activity that causes you to strain. Anal sex. Riding a bike for a long period of time. What are the signs or symptoms? Symptoms of this condition include: Pain. Anal itching or irritation. Rectal bleeding. Leakage of stool (feces). Anal swelling. One or more lumps around the anus. How is this diagnosed? This condition can often be diagnosed through a visual exam. Other exams or tests may also be done, such as: An exam that involves feeling the rectal area with a gloved hand (digital rectal exam). An exam of the anal canal that is done using a small tube (anoscope). A blood test, if you have lost a significant amount of blood. A test to look inside the colon using a flexible tube with a camera on the end (sigmoidoscopy or colonoscopy). How is this treated? This condition can usually be treated at home. However, various procedures may be done if dietary changes, lifestyle changes, and other home treatments do not help your symptoms. These procedures can help make the hemorrhoids smaller or remove them completely. Some of these procedures involve surgery, and others do not. Common procedures include: Rubber band ligation. Rubber bands are placed at the base of the hemorrhoids to cut off their blood supply. Sclerotherapy. Medicine is injected into the hemorrhoids to shrink them. Infrared coagulation. A type of light energy is used to get rid of the hemorrhoids. Hemorrhoidectomy surgery. The hemorrhoids are surgically removed, and the veins that supply them are tied off. Stapled hemorrhoidopexy surgery. The surgeon jasmin the base of the hemorrhoid to the rectal wall. Follow these instructions at home: Eating and drinking Eat foods that have a lot of fiber in them, such as whole grains, beans, nuts, fruits, and vegetables. Ask your health care provider about taking products that have added fiber (fiber supplements). Reduce the amount of fat in your diet. You can do this by eating low-fat dairy products, eating less red meat, and avoiding processed foods. Drink enough fluid to keep your urine pale yellow. Managing pain and swelling Take warm sitz baths for 20 minutes, 3 4 times a day to ease pain and discomfort. You may do this in a bathtub or using a portable sitz bath that fits over the toilet. If directed, apply ice to the affected area. Using ice packs between sitz baths may be helpful. ?Put ice in a plastic bag. ?Place a towel between your skin and the bag. ?Leave the ice on for 20 minutes, 2 3 times a day. General instructions Take szki-ugu-jgckglm and prescription medicines only as told by your health care provider. Use medicated creams or suppositories as told. Get regular exercise. Ask your health care provider how much and what kind of exercise is best for you. In general, you should do moderate exercise for at least 30 minutes on most days of the week (150 minutes each week). This can include activities such as walking, biking, or yoga. Go to the bathroom when you have the urge to have a bowel movement. Do not wait. Avoid straining to have bowel movements. Keep the anal area dry and clean. Use wet toilet paper or moist towelettes after a bowel movement. Do not sit on the toilet for long periods of time. This increases blood pooling and pain. Keep all follow-up visits as told by your health care provider. This is important. Contact a health care provider if you have: Increasing pain and swelling that are not controlled by treatment or medicine. Difficulty having a bowel movement, or you are unable to have a bowel movement. Pain or inflammation outside the area of the hemorrhoids. Get help right away if you have: Uncontrolled bleeding from your rectum. Summary Hemorrhoids are swollen veins in and around the rectum or anus. Most hemorrhoids can be managed with home treatments such as diet and lifestyle changes. Taking warm sitz baths can help ease pain and discomfort. In severe cases, procedures or surgery can be done to shrink or remove the hemorrhoids. This information is not intended to replace advice given to you by your health care provider. Make sure you discuss any questions you have with your health care provider. Document Revised: 09/16/2021 Document Reviewed: 09/16/2021 [employer] Patient Education 2022 [employer]. 08/08/2023 16:25:43 Urinary Tract Infection, Adult Urinary Tract Infection, Adult A urinary tract infection (UTI) is an infection of any part of the urinary tract. The urinary tract includes the kidneys, ureters, bladder, and urethra. These organs make, store, and get rid of urine in the body. An upper UTI affects the ureters and kidneys. A lower UTI affects the bladder and urethra. What are the causes? Most urinary tract infections are caused by bacteria in your genital area around your urethra, where urine leaves your body. These bacteria grow and cause inflammation of your urinary tract. What increases the risk? You are more likely to develop this condition if: You have a urinary catheter that stays in place. You are not able to control when you urinate or have a bowel movement (incontinence). You are female and you: ?Use a spermicide or diaphragm for control. ?Have low estrogen levels. ?Are . You have certain genes that increase your risk. You are sexually active. You take antibiotic medicines. You have a condition that causes your flow of urine to slow down, such as: ?An enlarged prostate, if you are male. ?Blockage in your urethra. ?A kidney stone. ?A nerve condition that affects your bladder control (neurogenic bladder). ?Not getting enough to drink, or not urinating often. You have certain medical conditions, such as: ?Diabetes. ?A weak disease-fighting system (immunesystem). ?Sickle cell disease. ?Gout. ?Spinal cord injury. What are the signs or symptoms? Symptoms of this condition include: Needing to urinate right away (urgency). Frequent urination. This may include small amounts of urine each time you urinate. Pain or burning with urination. Blood in the urine. Urine that smells bad or unusual. Trouble urinating. Cloudy urine. Vaginal discharge, if you are female. Pain in the abdomen or the lower back. You may also have: Vomiting or a decreased appetite. Confusion. Irritability or tiredness. A fever or chills. Diarrhea. The first symptom in older adults may be confusion. In some cases, they may not have any symptoms until the infection has worsened. How is this diagnosed? This condition is diagnosed based on your medical history and a physical exam. You may also have other tests, including: Urine tests. Blood tests. Tests for STIs (sexually transmitted infections). If you have had more than one UTI, a cystoscopy or imaging studies may be done to determine the cause of the infections. How is this treated? Treatment for this condition includes: Antibiotic medicine. Qywo-lad-jflsfxs medicines to treat discomfort. Drinking enough water to stay hydrated. If you have frequent infections or have other conditions such as a kidney stone, you may need to see a health care provider who specializes in the urinary tract (urologist). In rare cases, urinary tract infections can cause sepsis. Sepsis is a life-threatening condition that occurs when the body responds to an infection. Sepsis is treated in the hospital with IV antibiotics, fluids, and other medicines. Follow these instructions at home: Medicines Take hsjx-vfz-etoufot and prescription medicines only as told by your health care provider. If you were prescribed an antibiotic medicine, take it as told by your health care provider. Do not stop using the antibiotic even if you start to feel better. General instructions Make sure you: ?Empty your bladder often and completely. Do not hold urine for long periods of time. ?Empty your bladder after sex. ?Wipe from front to back after urinating or having a bowel movement if you are female. Use each tissue only one time when you wipe. Drink enough fluid to keep your urine pale yellow. Keep all follow-up visits. This is important. Contact a health care provider if: Your symptoms do not get better after 1 2 days. Your symptoms go away and then return. Get help right away if: You have severe pain in your back or your lower abdomen. You have a fever or chills. You have nausea or vomiting. Summary A urinary tract infection (UTI) is an infection of any part of the urinary tract, which includes the kidneys, ureters, bladder, and urethra. Most urinary tract infections are caused by bacteria in your genital area. Treatment for this condition often includes antibiotic medicines. If you were prescribed an antibiotic medicine, take it as told by your health care provider. Do not stop using the antibiotic even if you start to feel better. Keep all follow-up visits. This is important. This information is not intended to replace advice given to you by your health care provider. Make sure you discuss any questions you have with your health care provider. Document Revised: 10/17/2020 Document Reviewed: 10/17/2020 [employer] Patient Education 2022 [employer]. 08/08/2023 16:25:41 Hypothyroidism Hypothyroidism Hypothyroidism is when the thyroid gland does not make enough of certain hormones. This is called an underactive thyroid. The thyroid gland is a small gland located in the lower front part of the neck, just in front of the windpipe (trachea). This gland makes hormones that help control how the body uses food for energy (metabolism) as well as how the heart and brain function. These hormones also play a role in keeping your bones strong. When the thyroid is underactive, it produces too little of the hormones thyroxine (T4) and triiodothyronine (T3). What are the causes? This condition may be caused by: Adolfo's disease. This is a disease in which the body's disease-fighting system (immune system) attacks the thyroid gland. This is the most common cause. Viral infections. . Certain medicines. defects. Problems with a gland in the center of the brain (pituitary gland). Lack of enough iodine in the diet. Other causes may include: Past radiation treatments to the head or neck for cancer. Past treatment with radioactive iodine. Past exposure to radiation in the environment. Past surgical removal of part or all of the thyroid. What increases the risk? You are more likely to develop this condition if: You are female. You have a family history of thyroid conditions. You use a medicine called lithium. You take medicines that affect the immune system (immunosuppressants). What are the signs or symptoms? Common symptoms of this condition include: Not being able to tolerate cold. Feeling as though you have no energy (lethargy). Lack of appetite. Constipation. Sadness or depression. Weight gain that is not explained by a change in diet or exercise habits. Menstrual irregularity. Dry skin, coarse hair, or brittle nails. Other symptoms may include: Muscle pain. Slowing of thought processes. Poor memory. How is this diagnosed? This condition may be diagnosed based on: Your symptoms, your medical history, and a physical exam. Blood tests. You may also have imaging tests, such as an ultrasound or MRI. How is this treated? This condition is treated with medicine that replaces the thyroid hormones that your body does not make. After you begin treatment, it may take several weeks for symptoms to go away. Follow these instructions at home: Take vrxw-jic-ushvhci and prescription medicines only as told by your health care provider. If you start taking any new medicines, tell your health care provider. Keep all follow-up visits as told by your health care provider. This is important. ?As your condition improves, your dosage of thyroid hormone medicine may change. ?You will need to have blood tests regularly so that your health care provider can monitor your condition. Contact a health care provider if: Your symptoms do not get better with treatment. You are taking thyroid hormone replacement medicine and you: ?Sweat a lot. ?Have tremors. ?Feel anxious. ?Lose weight rapidly. ?Cannot tolerate heat. ?Have emotional swings. ?Have diarrhea. ?Feel weak. Get help right away if: You have chest pain. You have an irregular heartbeat. You have a rapid heartbeat. You have difficulty breathing. These symptoms may be an emergency. Get help right away. Call 911. Do not wait to see if the symptoms will go away. Do not drive yourself to the hospital. Summary Hypothyroidism is when the thyroid gland does not make enough of certain hormones (it is underactive). When the thyroid is underactive, it produces too little of the hormones thyroxine (T4) and triiodothyronine (T3). The most common cause is Adolfo's disease, a disease in which the body's disease-fighting system (immune system) attacks the thyroid gland. The condition can also be caused by viral infections, medicine, , or past radiation treatment to the head or neck. Symptoms may include weight gain, dry skin, constipation, feeling as though you do not have energy, and not being able to tolerate cold. This condition is treated with medicine to replace the thyroid hormones that your body does not make. This information is not intended to replace advice given to you by your health care provider. Make sure you discuss any questions you have with your health care provider. Document Revised: 03/09/2022 Document Reviewed: 03/09/2022 [employer] Patient Education 2022 [employer]. [facility] 08-08-2023 Evaluation + Plan note Future Scheduled TestsUA with Cult Rflx 08/08/23CBC w/ Auto Diff 02/08/24Comprehensive Metabolic Panel 02/08/24Thyroid Stimulating Hormone 02/08/24Thyroid Stimulating Hormone 05/16/23Free T4 02/08/24Free T4 05/16/23 [facility] 03-09-2023 Hospital Discharge instructions Patient Education 03/09/2023 08:08:54 Urodynamic Testing Urodynamic Testing Urodynamic tests are done to determine how well your lower urinary tract is working. The lower urinary tract includes your bladder and the part of your body that drains urine from the bladder (urethra). When your kidneys filter your blood, urine is stored in your bladder until you feel the urge to urinate. Urination requires coordination between the nerves and muscles of your bladder and urethra. When your lower urinary tract is working well, you should be able to: Start urinating when your bladder is full. Empty your bladder completely. Control the flow of your urine. Why do I need urodynamic testing? You may need urodynamic testing to help find the cause of any of these problems: Leaking urine (incontinence). Problems starting or stopping your urine flow. Frequent or painful urination. Frequent urinary tract infections. Being unable to empty your bladder completely. Having strong urges to pass urine (urgency). Having a weak flow of urine. What are the risks? Generally, these tests are safe. However, some of the tests have risks, including: Discomfort. Frequent urge to urinate. Bleeding. Infection. Allergic reactions to medicines or dyes (contrast material). What happens before the test? Ask your health care provider about changing or stopping your regular medicines. This is especially important if you are taking diabetes medicines or blood thinners. You may be asked to avoid urinating before coming to the test so that you arrive with a full bladder. Tell a health care provider about: ?Any allergies you have. ?All medicines you are taking, including vitamins, herbs, eye drops, creams, and vbkq-gzp-ybhtkeg medicines. ?Whether you are or may be . What happens during the test? You may have various urodynamic tests. The tests may be done separately or may all be done during one visit. You may be given an antibiotic medicine before or after testing to help prevent infection. The types of tests that may be done include: Uroflowmetry This test measures how much urine you pass and how long it takes to pass. You will urinate into a certain type of toilet or device (flowmeter). The device will measure the volume and the time of your urine flow. These measurements will be sent to a computer that creates a graph of your urine flow. Postvoid residual measurement This test measures how much urine is left in your bladder after you urinate. The test may be done with ultrasound. In this method, sound waves and a computer will be used to create an image of your bladder. The test can also be done by inserting a thin, flexible tube (catheter) into your bladder after you urinate. The remaining urine will be removed through the catheter so it can be measured. Remaining urine will be measured in milliliters (mL). If you have more than 100 mL left in your bladder after you urinate, your bladder is not emptying as it should. Cystometric testing This test uses a type of bladder catheter that can measure pressure. You may be given a medicine to numb the area (local anesthetic). The area around the opening of your urethra will be cleaned. A urinary catheter will be passed through your urethra into your bladder and used to empty your bladder completely. A measuring catheter will be placed, and your bladder will be filled with warm, germ-free (sterile) water. Pressure measurements will be taken: ?As your bladder fills. ?When you feel the need to urinate. ?As your bladder is emptied. You may be asked to cough or bear down to check for leakage. In some cases, your bladder may be filled with a material that shows up on X-rays (contrast material) so that X-ray pictures can be taken during the test. Electromyogram This test measures the electrical activity of the nerves and muscles of your bladder and the opening of your urethra. Sticky patches (electrodes) will be placed near your rectum and urethra to measure electrical activity. The measurements will show how well your nerves are communicating with your muscles. What can I expect after the test? You should be able to go home right away and do your usual activities. You may be told to drink a glass of water every 30 minutes for the first 2 hours after testing. Taking a warm bath or using warm, wet cloths (warm compresses) may relieve any discomfort near your urethra. What do the results mean? Talk with your health care provider about what your results mean. Some common causes for abnormal results from urodynamic tests include: Enlarged prostate in men. Overactive bladder. Urinary tract infection. Nervous system diseases. Spinal cord damage. Questions to ask your health care provider Ask your health care provider, or the department that is doing the test: When will my results be ready? How will I get my results? What are my treatment options? What other tests do I need? What are my next steps? Contact a health care provider if: You have pain. You have blood in your urine. You have chills. You have a fever. Summary Urodynamic tests are done to determine how well your lower urinary tract is working. The lower urinary tract includes your bladder and urethra. You may need urodynamic testing to help find the cause of various problems with urination, such as leaking urine (incontinence) or problems starting or stopping your urine flow. You may have various urodynamic tests. The tests may be done separately or may all be done during one testing visit. Talk with your health care provider about what your results mean. Contact your health care provider if you have pain, chills, a fever, or blood in your urine. This information is not intended to replace advice given to you by your health care provider. Make sure you discuss any questions you have with your health care provider. Document Revised: 11/18/2021 Document Reviewed: 10/10/2020 [employer] Patient Education 2022 [employer] 03/09/2023 08:08:48 Urinary Tract Infection, Adult Urinary Tract Infection, Adult A urinary tract infection (UTI) is an infection of any part of the urinary tract. The urinary tract includes the kidneys, ureters, bladder, and urethra. These organs make, store, and get rid of urine in the body. An upper UTI affects the ureters and kidneys. A lower UTI affects the bladder and urethra. What are the causes? Most urinary tract infections are caused by bacteria in your genital area around your urethra, where urine leaves your body. These bacteria grow and cause inflammation of your urinary tract. What increases the risk? You are more likely to develop this condition if: You have a urinary catheter that stays in place. You are not able to control when you urinate or have a bowel movement (incontinence). You are female and you: ?Use a spermicide or diaphragm for control. ?Have low estrogen levels. ?Are . You have certain genes that increase your risk. You are sexually active. You take antibiotic medicines. You have a condition that causes your flow of urine to slow down, such as: ?An enlarged prostate, if you are male. ?Blockage in your urethra. ?A kidney stone. ?A nerve condition that affects your bladder control (neurogenic bladder). ?Not getting enough to drink, or not urinating often. You have certain medical conditions, such as: ?Diabetes. ?A weak disease-fighting system (immunesystem). ?Sickle cell disease. ?Gout. ?Spinal cord injury. What are the signs or symptoms? Symptoms of this condition include: Needing to urinate right away (urgency). Frequent urination. This may include small amounts of urine each time you urinate. Pain or burning with urination. Blood in the urine. Urine that smells bad or unusual. Trouble urinating. Cloudy urine. Vaginal discharge, if you are female. Pain in the abdomen or the lower back. You may also have: Vomiting or a decreased appetite. Confusion. Irritability or tiredness. A fever or chills. Diarrhea. The first symptom in older adults may be confusion. In some cases, they may not have any symptoms until the infection has worsened. How is this diagnosed? This condition is diagnosed based on your medical history and a physical exam. You may also have other tests, including: Urine tests. Blood tests. Tests for STIs (sexually transmitted infections). If you have had more than one UTI, a cystoscopy or imaging studies may be done to determine the cause of the infections. How is this treated? Treatment for this condition includes: Antibiotic medicine. Yedv-vwu-pzrhaxd medicines to treat discomfort. Drinking enough water to stay hydrated. If you have frequent infections or have other conditions such as a kidney stone, you may need to see a health care provider who specializes in the urinary tract (urologist). In rare cases, urinary tract infections can cause sepsis. Sepsis is a life-threatening condition that occurs when the body responds to an infection. Sepsis is treated in the hospital with IV antibiotics, fluids, and other medicines. Follow these instructions at home: Medicines Take oiqq-bwg-lxmdlyr and prescription medicines only as told by your health care provider. If you were prescribed an antibiotic medicine, take it as told by your health care provider. Do not stop using the antibiotic even if you start to feel better. General instructions Make sure you: ?Empty your bladder often and completely. Do not hold urine for long periods of time. ?Empty your bladder after sex. ?Wipe from front to back after urinating or having a bowel movement if you are female. Use each tissue only one time when you wipe. Drink enough fluid to keep your urine pale yellow. Keep all follow-up visits. This is important. Contact a health care provider if: Your symptoms do not get better after 1 2 days. Your symptoms go away and then return. Get help right away if: You have severe pain in your back or your lower abdomen. You have a fever or chills. You have nausea or vomiting. Summary A urinary tract infection (UTI) is an infection of any part of the urinary tract, which includes the kidneys, ureters, bladder, and urethra. Most urinary tract infections are caused by bacteria in your genital area. Treatment for this condition often includes antibiotic medicines. If you were prescribed an antibiotic medicine, take it as told by your health care provider. Do not stop using the antibiotic even if you start to feel better. Keep all follow-up visits. This is important. This information is not intended to replace advice given to you by your health care provider. Make sure you discuss any questions you have with your health care provider. Document Revised: 10/17/2020 Document Reviewed: 10/17/2020 [employer] Patient Education 2022 [employer]. 03/09/2023 08:08:46 Hypothyroidism Hypothyroidism Hypothyroidism is when the thyroid gland does not make enough of certain hormones. This is called an underactive thyroid. The thyroid gland is a small gland located in the lower front part of the neck, just in front of the windpipe (trachea). This gland makes hormones that help control how the body uses food for energy (metabolism) as well as how the heart and brain function. These hormones also play a role in keeping your bones strong. When the thyroid is underactive, it produces too little of the hormones thyroxine (T4) and triiodothyronine (T3). What are the causes? This condition may be caused by: Adolfo's disease. This is a disease in which the body's disease-fighting system (immune system) attacks the thyroid gland. This is the most common cause. Viral infections. . Certain medicines. defects. Problems with a gland in the center of the brain (pituitary gland). Lack of enough iodine in the diet. Other causes may include: Past radiation treatments to the head or neck for cancer. Past treatment with radioactive iodine. Past exposure to radiation in the environment. Past surgical removal of part or all of the thyroid. What increases the risk? You are more likely to develop this condition if: You are female. You have a family history of thyroid conditions. You use a medicine called lithium. You take medicines that affect the immune system (immunosuppressants). What are the signs or symptoms? Common symptoms of this condition include: Not being able to tolerate cold. Feeling as though you have no energy (lethargy). Lack of appetite. Constipation. Sadness or depression. Weight gain that is not explained by a change in diet or exercise habits. Menstrual irregularity. Dry skin, coarse hair, or brittle nails. Other symptoms may include: Muscle pain. Slowing of thought processes. Poor memory. How is this diagnosed? This condition may be diagnosed based on: Your symptoms, your medical history, and a physical exam. Blood tests. You may also have imaging tests, such as an ultrasound or MRI. How is this treated? This condition is treated with medicine that replaces the thyroid hormones that your body does not make. After you begin treatment, it may take several weeks for symptoms to go away. Follow these instructions at home: Take ciwk-kbu-ttssajl and prescription medicines only as told by your health care provider. If you start taking any new medicines, tell your health care provider. Keep all follow-up visits as told by your health care provider. This is important. ?As your condition improves, your dosage of thyroid hormone medicine may change. ?You will need to have blood tests regularly so that your health care provider can monitor your condition. Contact a health care provider if: Your symptoms do not get better with treatment. You are taking thyroid hormone replacement medicine and you: ?Sweat a lot. ?Have tremors. ?Feel anxious. ?Lose weight rapidly. ?Cannot tolerate heat. ?Have emotional swings. ?Have diarrhea. ?Feel weak. Get help right away if: You have chest pain. You have an irregular heartbeat. You have a rapid heartbeat. You have difficulty breathing. These symptoms may be an emergency. Get help right away. Call 911. Do not wait to see if the symptoms will go away. Do not drive yourself to the hospital. Summary Hypothyroidism is when the thyroid gland does not make enough of certain hormones (it is underactive). When the thyroid is underactive, it produces too little of the hormones thyroxine (T4) and triiodothyronine (T3). The most common cause is Adolfo's disease, a disease in which the body's disease-fighting system (immune system) attacks the thyroid gland. The condition can also be caused by viral infections, medicine, , or past radiation treatment to the head or neck. Symptoms may include weight gain, dry skin, constipation, feeling as though you do not have energy, and not being able to tolerate cold. This condition is treated with medicine to replace the thyroid hormones that your body does not make. This information is not intended to replace advice given to you by your health care provider. Make sure you discuss any questions you have with your health care provider. Document Revised: 03/09/2022 Document Reviewed: 03/09/2022 [employer] Patient Education 2022 [employer]. Follow Up Care 03/07/2023 12:06:45 With:Ya Wang FAM, MED Address: [address] [place] [address] A [place] [phone] Business (1) When:05/25/2023 Comments:for f/u [facility] 02-21-2023 Hospital Discharge instructions Patient Education 02/21/2023 13:38:44 Dysuria Dysuria Dysuria is pain or discomfort during urination. The pain or discomfort may be felt in the part of the body that drains urine from the bladder (urethra) or in the surrounding tissue of the genitals. The pain may also be felt in the groin area, lower abdomen, or lower back. You may have to urinate frequently or have the sudden feeling that you have to urinate (urgency). Dysuria can affect anyone, but it is more common in females. Dysuria can be caused by many different things, including: Urinary tract infection. Kidney stones or bladder stones. Certain STIs (sexually transmitted infections), such as chlamydia. Dehydration. Inflammation of the tissues of the vagina. Use of certain medicines. Use of certain soaps or scented products that cause irritation. Follow these instructions at home: Medicines Take qaws-owh-unnkxuu and prescription medicines only as told by your health care provider. If you were prescribed an antibiotic medicine, take it as told by your health care provider. Do not stop taking the antibiotic even if you start to feel better. Eating and drinking Drink enough fluid to keep your urine pale yellow. Avoid caffeinated beverages, tea, and alcohol. These beverages can irritate the bladder and make dysuria worse. In males, alcohol may irritate the prostate. General instructions Watch your condition for any changes. Urinate often. Avoid holding urine for long periods of time. If you are female, you should wipe from front to back after urinating or having a bowel movement. Use each piece of toilet paper only once. Empty your bladder after sex. Keep all follow-up visits. This is important. If you had any tests done to find the cause of dysuria, it is up to you to get your test results. Ask your health care provider, or the department that is doing the test, when your results will be ready. Contact a health care provider if: You have a fever. You develop pain in your back or sides. You have nausea or vomiting. You have blood in your urine. You are not urinating as often as you usually do. Get help right away if: Your pain is severe and not relieved with medicines. You cannot eat or drink without vomiting. You are confused. You have a rapid heartbeat while resting. You have shaking or chills. You feel extremely weak. Summary Dysuria is pain or discomfort while urinating. Many different conditions can lead to dysuria. If you have dysuria, you may have to urinate frequently or have the sudden feeling that you have to urinate (urgency). Watch your condition for any changes. Keep all follow-up visits. Make sure that you urinate often and drink enough fluid to keep your urine pale yellow. This information is not intended to replace advice given to you by your health care provider. Make sure you discuss any questions you have with your health care provider. Document Revised: 10/17/2020 Document Reviewed: 10/17/2020 [employer] Patient Education 2022 [employer]. Follow Up Care 02/21/2023 08:19:47 With:Ya Wang FAM, [facility] Address: [facility] Bladimir Barraza, [facility] A [address] Business (1) When:05/25/2023 Comments:for f/u [facility] 11-30-2022 Hospital Discharge instructions Patient Education 11/30/2022 12:07:42 High-Fiber Eating Plan High-Fiber Eating Plan Fiber, also called dietary fiber, is a type of carbohydrate. It is found foods such as fruits, vegetables, whole grains, and beans. A high-fiber diet can have many health benefits. Your health care provider may recommend a high-fiber diet to help: Prevent constipation. Fiber can make your bowel movements more regular. Lower your cholesterol. Relieve the following conditions: ?Inflammation of veins in the anus (hemorrhoids). ?Inflammation of specific areas of the digestive tract (uncomplicated diverticulosis). ?A problem of the large intestine, also called the colon, that sometimes causes pain and diarrhea (irritable bowel syndrome, or IBS). Prevent overeating as part of a weight-loss plan. Prevent heart disease, type 2 diabetes, and certain cancers. What are tips for following this plan? Reading food labels Check the nutrition facts label on food products for the amount of dietary fiber. Choose foods that have 5 grams of fiber or more per serving. The goals for recommended daily fiber intake include: ?Men (age 50 or younger): 34 38 g. ?Men (over age 50): 28 34 g. ?Women (age 50 or younger): 25 28 g. ?Women (over age 50): 22 25 g. Your daily fiber goal is g. Shopping Choose whole fruits and vegetables instead of processed forms, such as apple juice or applesauce. Choose a wide variety of high-fiber foods such as avocados, lentils, oats, and kidney beans. Read the nutrition facts label of the foods you choose. Be aware of foods with added fiber. These foods often have high sugar and sodium amounts per serving. Cooking Use whole-grain flour for baking and cooking. Cook with brown rice instead of white rice. Meal planning Start the day with a breakfast that is high in fiber, such as a cereal that contains 5 g of fiber or more per serving. Eat breads and cereals that are made with whole-grain flour instead of refined flour or white flour. Eat brown rice, bulgur wheat, or millet instead of white rice. Use beans in place of meat in soups, salads, and pasta dishes. Be sure that half of the grains you eat each day are whole grains. General information You can get the recommended daily intake of dietary fiber by: ?Eating a variety of fruits, vegetables, grains, nuts, and beans. ?Taking a fiber supplement if you are not able to take in enough fiber in your diet. It is better to get fiber through food than from a supplement. Gradually increase how much fiber you consume. If you increase your intake of dietary fiber too quickly, you may have bloating, cramping, or gas. Drink plenty of water to help you digest fiber. Choose high-fiber snacks, such as berries, raw vegetables, nuts, and popcorn. What foods should I eat? Fruits Berries. Pears. Apples. Oranges. Avocado. Prunes and raisins. Dried figs. Vegetables Sweet potatoes. Spinach. Kale. Artichokes. Cabbage. Broccoli. Cauliflower. Green peas. Carrots. Squash. Grains Whole-grain breads. Multigrain cereal. Oats and oatmeal. Brown rice. Barley. Bulgur wheat. Millet. Quinoa. Bran muffins. Popcorn. [place] wafer crackers. Meats and other proteins [place] beans, kidney beans, and díaz beans. Soybeans. Split peas. Lentils. Nuts and seeds. Dairy Fiber-fortified yogurt. Beverages Fiber-fortified soy milk. Fiber-fortified orange juice. Other foods Fiber bars. The items listed above may not be a complete list of recommended foods and beverages. Contact a dietitian for more information. What foods should I avoid? Fruits Fruit juice. Cooked, strained fruit. Vegetables Fried potatoes. Canned vegetables. Well-cooked vegetables. Grains White bread. Pasta made with refined flour. White rice. Meats and other proteins Fatty cuts of meat. Fried chicken or fried fish. Dairy Milk. Yogurt. Cream cheese. Sour cream. Fats and oils [place]. Beverages Soft drinks. Other foods Cakes and pastries. The items listed above may not be a complete list of foods and beverages to avoid. Talk with your dietitian about what choices are best for you. Summary Fiber is a type of carbohydrate. It is found in foods such as fruits, vegetables, whole grains, and beans. A high-fiber diet has many benefits. It can help to prevent constipation, lower blood cholesterol, aid weight loss, and reduce your risk of heart disease, diabetes, and certain cancers. Increase your intake of fiber gradually. Increasing fiber too quickly may cause cramping, bloating, and gas. Drink plenty of water while you increase the amount of fiber you consume. The best sources of fiber include whole fruits and vegetables, whole grains, nuts, seeds, and beans. This information is not intended to replace advice given to you by your health care provider. Make sure you discuss any questions you have with your health care provider. Document Revised: 07/10/2020 Document Reviewed: 07/10/2020 [employer] Patient Education 2022 [employer]. Follow Up Care 11/11/2022 12:10:41 With:Agueda Gray CNP Address: When:2 weeks Comments:Following EGD/Colonoscopy. [facility] 11-11-2022 Hospital Discharge instructions Patient Education 11/11/2022 01:00:56 High-Fiber Diet High-Fiber Diet Fiber, also called dietary fiber, is a type of carbohydrate that is found in fruits, vegetables, whole grains, and beans. A high-fiber diet can have many health benefits. Your health care provider may recommend a high-fiber diet to help: Prevent constipation. Fiber can make your bowel movements more regular. Lower your cholesterol. Relieve the following conditions: ?Swelling of veins in the anus (hemorrhoids). ?Swelling and irritation (inflammation) of specific areas of the digestive tract (uncomplicated diverticulosis). ?A problem of the large intestine (colon) that sometimes causes pain and diarrhea (irritable bowel syndrome, IBS). Prevent overeating as part of a weight-loss plan. Prevent heart disease, type 2 diabetes, and certain cancers. What is my plan? The recommended daily fiber intake in grams (g) includes: 38 g for men age 50 or younger. 30 g for men over age 50. 25 g for women age 50 or younger. 21 g for women over age 50. You can get the recommended daily intake of dietary fiber by: Eating a variety of fruits, vegetables, grains, and beans. Taking a fiber supplement, if it is not possible to get enough fiber through your diet. What do I need to know about a high-fiber diet? It is better to get fiber through food sources rather than from fiber supplements. There is not a lot of research about how effective supplements are. Always check the fiber content on the nutrition facts label of any prepackaged food. Look for foods that contain 5 g of fiber or more per serving. Talk with a diet and nutritionalist (dietitian) if you have questions about specific foods that are recommended or not recommended for your medical condition, especially if those foods are not listed below. Gradually increase how much fiber you consume. If you increase your intake of dietary fiber too quickly, you may have bloating, cramping, or gas. Drink plenty of water. Water helps you to digest fiber. What are tips for following this plan? Eat a wide variety of high-fiber foods. Make sure that half of the grains that you eat each day are whole grains. Eat breads and cereals that are made with whole-grain flour instead of refined flour or white flour. Eat brown rice, bulgur wheat, or millet instead of white rice. Start the day with a breakfast that is high in fiber, such as a cereal that contains 5 g of fiber or more per serving. Use beans in place of meat in soups, salads, and pasta dishes. Eat high-fiber snacks, such as berries, raw vegetables, nuts, and popcorn. Choose whole fruits and vegetables instead of processed forms like juice or sauce. What foods can I eat? Fruits Berries. Pears. Apples. Oranges. Avocado. Prunes and raisins. Dried figs. Vegetables Sweet potatoes. Spinach. Kale. Artichokes. Cabbage. Broccoli. Cauliflower. Green peas. Carrots. Squash. Grains Whole-grain breads. Multigrain cereal. Oats and oatmeal. Brown rice. Barley. Bulgur wheat. Millet. Quinoa. Bran muffins. Popcorn. [place] wafer crackers. Meats and other proteins [place], kidney, and díaz beans. Soybeans. Split peas. Lentils. Nuts and seeds. Dairy Fiber-fortified yogurt. Beverages Fiber-fortified soy milk. Fiber-fortified orange juice. Other foods Fiber bars. The items listed above may not be a complete list of recommended foods and beverages. Contact a dietitian for more options. What foods are not recommended? Fruits Fruit juice. Cooked, strained fruit. Vegetables Fried potatoes. Canned vegetables. Well-cooked vegetables. Grains White bread. Pasta made with refined flour. White rice. Meats and other proteins Fatty cuts of meat. Fried chicken or fried fish. Dairy Milk. Yogurt. Cream cheese. Sour cream. Fats and oils [place]. Beverages Soft drinks. Other foods Cakes and pastries. The items listed above may not be a complete list of foods and beverages to avoid. Contact a dietitian for more information. Summary Fiber is a type of carbohydrate. It is found in fruits, vegetables, whole grains, and beans. There are many health benefits of eating a high-fiber diet, such as preventing constipation, lowering blood cholesterol, helping with weight loss, and reducing your risk of heart disease, diabetes, and certain cancers. Gradually increase your intake of fiber. Increasing too fast can result in cramping, bloating, and gas. Drink plenty of water while you increase your fiber. The best sources of fiber include whole fruits and vegetables, whole grains, nuts, seeds, and beans. This information is not intended to replace advice given to you by your health care provider. Make sure you discuss any questions you have with your health care provider. Document Released: 03/07/2006 Document Revised: 01/09/2018 Document Reviewed: 01/09/2018 [employer] Patient Education 2020 [employer]. 11/11/2022 01:00:54 Hemorrhoids Hemorrhoids Hemorrhoids are swollen veins in and around the rectum or anus. There are two types of hemorrhoids: Internal hemorrhoids. These occur in the veins that are just inside the rectum. They may poke through to the outside and become irritated and painful. External hemorrhoids. These occur in the veins that are outside the anus and can be felt as a painful swelling or hard lump near the anus. Most hemorrhoids do not cause serious problems, and they can be managed with home treatments such as diet and lifestyle changes. If home treatments do not help the symptoms, procedures can be done to shrink or remove the hemorrhoids. What are the causes? This condition is caused by increased pressure in the anal area. This pressure may result from various things, including: Constipation. Straining to have a bowel movement. Diarrhea. . Obesity. Sitting for long periods of time. Heavy lifting or other activity that causes you to strain. Anal sex. Riding a bike for a long period of time. What are the signs or symptoms? Symptoms of this condition include: Pain. Anal itching or irritation. Rectal bleeding. Leakage of stool (feces). Anal swelling. One or more lumps around the anus. How is this diagnosed? This condition can often be diagnosed through a visual exam. Other exams or tests may also be done, such as: An exam that involves feeling the rectal area with a gloved hand (digital rectal exam). An exam of the anal canal that is done using a small tube (anoscope). A blood test, if you have lost a significant amount of blood. A test to look inside the colon using a flexible tube with a camera on the end (sigmoidoscopy or colonoscopy). How is this treated? This condition can usually be treated at home. However, various procedures may be done if dietary changes, lifestyle changes, and other home treatments do not help your symptoms. These procedures can help make the hemorrhoids smaller or remove them completely. Some of these procedures involve surgery, and others do not. Common procedures include: Rubber band ligation. Rubber bands are placed at the base of the hemorrhoids to cut off their blood supply. Sclerotherapy. Medicine is injected into the hemorrhoids to shrink them. Infrared coagulation. A type of light energy is used to get rid of the hemorrhoids. Hemorrhoidectomy surgery. The hemorrhoids are surgically removed, and the veins that supply them are tied off. Stapled hemorrhoidopexy surgery. The surgeon jasmin the base of the hemorrhoid to the rectal wall. Follow these instructions at home: Eating and drinking Eat foods that have a lot of fiber in them, such as whole grains, beans, nuts, fruits, and vegetables. Ask your health care provider about taking products that have added fiber (fiber supplements). Reduce the amount of fat in your diet. You can do this by eating low-fat dairy products, eating less red meat, and avoiding processed foods. Drink enough fluid to keep your urine pale yellow. Managing pain and swelling Take warm sitz baths for 20 minutes, 3 4 times a day to ease pain and discomfort. You may do this in a bathtub or using a portable sitz bath that fits over the toilet. If directed, apply ice to the affected area. Using ice packs between sitz baths may be helpful. ?Put ice in a plastic bag. ?Place a towel between your skin and the bag. ?Leave the ice on for 20 minutes, 2 3 times a day. General instructions Take iiux-rgl-jtmwosr and prescription medicines only as told by your health care provider. Use medicated creams or suppositories as told. Get regular exercise. Ask your health care provider how much and what kind of exercise is best for you. In general, you should do moderate exercise for at least 30 minutes on most days of the week (150 minutes each week). This can include activities such as walking, biking, or yoga. Go to the bathroom when you have the urge to have a bowel movement. Do not wait. Avoid straining to have bowel movements. Keep the anal area dry and clean. Use wet toilet paper or moist towelettes after a bowel movement. Do not sit on the toilet for long periods of time. This increases blood pooling and pain. Keep all follow-up visits as told by your health care provider. This is important. Contact a health care provider if you have: Increasing pain and swelling that are not controlled by treatment or medicine. Difficulty having a bowel movement, or you are unable to have a bowel movement. Pain or inflammation outside the area of the hemorrhoids. Get help right away if you have: Uncontrolled bleeding from your rectum. Summary Hemorrhoids are swollen veins in and around the rectum or anus. Most hemorrhoids can be managed with home treatments such as diet and lifestyle changes. Taking warm sitz baths can help ease pain and discomfort. In severe cases, procedures or surgery can be done to shrink or remove the hemorrhoids. This information is not intended to replace advice given to you by your health care provider. Make sure you discuss any questions you have with your health care provider. Document Revised: 09/16/2021 Document Reviewed: 09/16/2021 [employer] Patient Education 2022 [employer]. Follow Up Care 11/08/2022 14:59:04 With:Ya Wang FAM, [facility] Address: [facility] Bladimir Barraza, [facility] [place] [phone] Business (1) When:Within 3 Month(s) Comments:3 mo f/u [facility] 05-03-2022 Hospital Discharge instructions Patient Education 05/03/2022 14:34:00 Hypothyroidism Hypothyroidism Hypothyroidism is when the thyroid gland does not make enough of certain hormones (it is underactive). The thyroid gland is a small gland located in the lower front part of the neck, just in front of the windpipe (trachea). This gland makes hormones that help control how the body uses food for energy (metabolism) as well as how the heart and brain function. These hormones also play a role in keeping your bones strong. When the thyroid is underactive, it produces too little of the hormones thyroxine (T4) and triiodothyronine (T3). What are the causes? This condition may be caused by: Adolfo's disease. This is a disease in which the body's disease-fighting system (immune system) attacks the thyroid gland. This is the most common cause. Viral infections. . Certain medicines. defects. Past radiation treatments to the head or neck for cancer. Past treatment with radioactive iodine. Past exposure to radiation in the environment. Past surgical removal of part or all of the thyroid. Problems with a gland in the center of the brain (pituitary gland). Lack of enough iodine in the diet. What increases the risk? You are more likely to develop this condition if: You are female. You have a family history of thyroid conditions. You use a medicine called lithium. You take medicines that affect the immune system (immunosuppressants). What are the signs or symptoms? Symptoms of this condition include: Feeling as though you have no energy (lethargy). Not being able to tolerate cold. Weight gain that is not explained by a change in diet or exercise habits. Lack of appetite. Dry skin. Coarse hair. Menstrual irregularity. Slowing of thought processes. Constipation. Sadness or depression. How is this diagnosed? This condition may be diagnosed based on: Your symptoms, your medical history, and a physical exam. Blood tests. You may also have imaging tests, such as an ultrasound or MRI. How is this treated? This condition is treated with medicine that replaces the thyroid hormones that your body does not make. After you begin treatment, it may take several weeks for symptoms to go away. Follow these instructions at home: Take zyeg-inm-einnetf and prescription medicines only as told by your health care provider. If you start taking any new medicines, tell your health care provider. Keep all follow-up visits as told by your health care provider. This is important. ?As your condition improves, your dosage of thyroid hormone medicine may change. ?You will need to have blood tests regularly so that your health care provider can monitor your condition. Contact a health care provider if: Your symptoms do not get better with treatment. You are taking thyroid replacement medicine and you: ?Sweat a lot. ?Have tremors. ?Feel anxious. ?Lose weight rapidly. ?Cannot tolerate heat. ?Have emotional swings. ?Have diarrhea. ?Feel weak. Get help right away if you have: Chest pain. An irregular heartbeat. A rapid heartbeat. Difficulty breathing. Summary Hypothyroidism is when the thyroid gland does not make enough of certain hormones (it is underactive). When the thyroid is underactive, it produces too little of the hormones thyroxine (T4) and triiodothyronine (T3). The most common cause is Adolfo's disease, a disease in which the body's disease-fighting system (immune system) attacks the thyroid gland. The condition can also be caused by viral infections, medicine, , or past radiation treatment to the head or neck. Symptoms may include weight gain, dry skin, constipation, feeling as though you do not have energy, and not being able to tolerate cold. This condition is treated with medicine to replace the thyroid hormones that your body does not make. This information is not intended to replace advice given to you by your health care provider. Make sure you discuss any questions you have with your health care provider. Document Released: 03/07/2006 Document Revised: 02/17/2018 Document Reviewed: 02/15/2018 [employer] Patient Education 2020 [employer]. Follow Up Care 04/05/2022 12:35:49 With:Ritu Desai CNP Address: [address] [place] [address] [place] [address] [phone] When:1 year Comments:or sooner if needed. [facility] Primary Care Evaluation + Plan note No data available for this section [facility] Primary Care Evaluation + Plan note Future Appointments Appointment Date:11/30/2022 12:00:00 PM Scheduled Provider:Agueda Gray CNP Location:[facility] Appointment Type:[facility] Patient Appointment Date:04/04/2023 01:00:00 PM Scheduled Provider:Ya Wang Location:[facility] Appointment Type: Open Future Scheduled TestsTSH With T4fr Reflex 10/08/22 [facility] Primary [facility] Evaluation + Plan note Future Appointments Appointment Date:04/04/2023 01:00:00 PM Scheduled Provider:Ya Wang Location:[facility] Appointment Type:FM Open Future Scheduled TestsTSH With T4fr Reflex 10/08/22 [facility] Evaluation + Plan note Future Appointments Appointment Date:07/25/2023 10:00:00 AM Scheduled Provider:Ya Wang [facility] Type:FM Open Future Scheduled TestsT3 Free 02/21/23Thyroid Stimulating Hormone 02/21/23Free T4 02/21/23 [facility] Evaluation + Plan note Future Appointments Appointment Date:07/25/2023 10:00:00 AM Scheduled Provider:Ya Wang Location:[facility] Appointment Type:FM Open Diagnostic Tests PendingUrine Culture 02/21/23 Future Scheduled TestsT3 Free 02/21/23Thyroid Stimulating Hormone 02/21/23Free T4 02/21/23 [facility] Evaluation + Plan note Future Appointments Appointment Date:07/25/2023 10:00:00 AM Scheduled Provider:Ya Wang Location:[facility] Appointment Type:FM Open Future Scheduled TestsT3 Free 02/21/23Thyroid Stimulating Hormone 02/21/23Free T4 02/21/23US Retroperitoneal Complete 03/09/23 [facility] Evaluation + Plan note Future Appointments Appointment Date:07/25/2023 10:00:00 AM Scheduled Provider:Ya Wang Location:[facility] Appointment Type:FM Open Diagnostic Tests PendingUrine Culture 03/09/23 Future Scheduled TestsT3 Free 02/21/23Thyroid Stimulating Hormone 02/21/23Free T4 02/21/23US Retroperitoneal Complete 03/09/23 [facility] Evaluation + Plan note Future Appointments Appointment Date:07/12/2023 09:30:00 AM Scheduled Provider:OPAL LUZ [facility]-C [facility]O New Patient Appointment Date:07/25/2023 10:00:00 AM Scheduled Provider:Ya Wang Location:[facility] Appointment Type:FM Open Diagnostic Tests PendingT3 Free 03/22/23 [facility] Evaluation + Plan note Future Appointments Appointment Date:07/12/2023 09:30:00 AM Scheduled Provider:OPAL LUZ PA-C [facility] Type:URO New Patient Appointment Date:07/25/2023 10:00:00 AM Scheduled Provider:Ya Wang Location:[facility] Appointment Type:FM Open [facility] Evaluation + Plan note Future Appointments Appointment Date:07/25/2023 10:00:00 AM Scheduled Provider:Ya Wang Location[facility] Appointment Type:FM Open Future Scheduled TestsThyroid Stimulating Hormone 05/16/23Free T4 05/16/23 [facility] Evaluation + Plan note Future Scheduled TestsCBC w/ Auto Diff 02/08/24Comprehensive Metabolic Panel 02/08/24Thyroid Stimulating Hormone 02/08/24Free T4 02/08/24 [facility] Evaluation + Plan note Future Appointments Appointment Date:07/09/2024 08:00:00 AM Scheduled Provider:Marta Rivas [facility] Type:FM New Patient - Adult Future Scheduled TestsCBC w/ Auto Diff 02/08/24Comprehensive Metabolic Panel 02/08/24Thyroid Stimulating Hormone 02/08/24Free T4 02/08/24 [facility] Evaluation note Diagnosis Well woman exam with routine gynecological exam Routine gynecological examination [facility] Diagnosis Family history of autism Family history of psychiatric condition [facility] Missed menses , unspecified gestational age Encounter for supervision of normal first in first trimester Nonintractable headache, unspecified chronicity pattern, unspecified headache type documented in this encounter [facility] instructions No data available for this section [facility] No data available for this section [facility] Primary Care Summary Purpose Family History No Family History Records Found No data available for this section No data available for this section No data available for this section No data available for this section No data available for this section No data available for this section No data available for this section No data available for this section No data available for this section No Family History Records FoundNo Family History Records FoundNo Family History Records Found No data available for this section No Family History Records FoundNo Family History Records FoundNo Family History Records FoundNo Family History Records Found Advance Directives No Advanced Directives Records FoundNo Advanced Directives Records FoundNo Advanced Directives Records FoundNo Advanced Directives Records FoundNo Advanced Directives Records FoundNo Advanced Directives Records FoundNo Advanced Directives Records FoundNo Advanced Directives Records Found Additional Source Comments INFORMATION SOURCE (unrecogn ized section and content) DATE CREATED AUTHOR 11/15/2021 [facility] DATE CREATED AUTHOR AUTHOR'S ORGANIZ ATION 09/09/2023 [facility] DATE CREATED AUTHOR AUTHOR'S ORGANIZ ATION 05/21/2024 [facility] DATE CREATED AUTHOR AUTHOR'S ORGANIZ ATION 07/06/2024 [facility] DATE CREATED AUTHOR AUTHOR'S ORGANIZ ATION 07/10/2024 [facility] DATE CREATED AUTHOR AUTHOR'S ORGANIZ ATION 07/13/2024 [facility] DATE CREATED AUTHOR AUTHOR'S ORGANIZ ATION 08/20/2024 [facility] EPIC Patient Care team informatio n (unrecognized section and content) Elastic Cutter Relationship Specialty Start Date End Date Carrillo White MD [address] [place] [address] PCP - General Internal Medicine 11/29/22 Elastic Cutter Relationship Specialty Start Date End Date Carrillo White MD [address] [place] [address] PCP - General Internal Medicine 11/29/22 Elastic Cutter Relationship Specialty Start Date End Date Carrillo White MD [address] [place] [address] PCP - General Internal Medicine 11/29/22 Elastic Cutter Relationship Specialty Start Date End Date Carmita Jurado MD [place], [place] [id number] Attending Provider Medical Clinical Genetics 05/14/24 Elastic Cutter Relationship Specialty Start Date End Date Carrillo White MD [address] [place] [address] PCP - General Internal Medicine 11/29/22 Reason for Visit (unrecogniz ed section and content) Reason Comments Well Women Visit Reason Comments Amenorrhea FOR RECORDS PERTAINING TO PATIENTS WHO ARE OR HAVE BEEN ENROLLED IN A CHEMICAL DEPENDENCY/SUBSTANCEABUSE PROGRAM, SOME INFORMATION MAY BE OMITTED. This clinical summary was aggregated from multiple sources. Caution should be exercised in using it in the provision of clinical care. This summary normalizes information from multiple sources, and as a consequence, information in this document may materially change the coding, format and clinical context of patient data. In addition, data may be omitted in some cases. CLINICAL DECISIONS SHOULD BE BASED ON THE PRIMARY CLINICAL RECORDS. [facility] [employer] provides no warranty or guarantee of the accuracy or completeness of information in this document.
[2024-08-21 11:09] LABS: Basophils Percent Auto 0.5 % (0.2-2.0); Eosinophils Percent Auto 0.5 % (0.9-7.0); Hematocrit 38.5 % (36.0-48.0); Hemoglobin 13.7 g/dL (12.0-16.0); Immature Granulocytes Abs Auto 0.02 10^3/uL (0.00-0.03); Immature Granulocytes Pct Auto 0.3 % (0.0-0.5); Lymphocytes Absolute Auto 1.6 10^3/uL (1.2-3.8); Mean Corpuscular HGB Conc 35.6 g/dL (29.9-35.2); Mean Corpuscular Hemoglobin 33.5 pg (26.7-34.0); Mean Corpuscular Volume 94.1 fL (81.0-99.0); Mean Platelet Volume 11.1 fL (9.5-13.5); Monocytes Absolute Auto 0.4 10^3/uL (0.3-0.8); Monocytes Percent Auto 5.1 % (1.7-12.0); Neutrophils Absolute Auto 5.6 10^3/uL (1.4-6.5); Neutrophils Percent Auto 72.6 % (43.0-75.0); Platelet Count 211 10^3/uL (150-450); Red Blood Count 4.09 10^6/uL (4.20-5.40); Red Cell Distribution Width 12.3 % (11.0-15.0); White Blood Count 7.8 10^3/uL (4.0-11.0)
[2024-08-21 11:24] LABS: Cannabinoid Screen Urine NEGATIVE (NEGATIVE); Cocaine Screen Urine NEGATIVE (NEGATIVE); Methamphetamines Screen Urine NEGATIVE (NEGATIVE); Opiate Screen Urine NEGATIVE (NEGATIVE); Phencyclidine Screen Urine NEGATIVE (NEGATIVE)
[2024-08-21 11:25] LABS: Amphetamine Screen Urine NEGATIVE (NEGATIVE); Barbiturates Screen Urine NEGATIVE (NEGATIVE); Benzodiazepines Screen Urine NEGATIVE (NEGATIVE); Buprenorphine Screen Urine NEGATIVE (NEGATIVE); Methadone Screen Urine NEGATIVE (NEGATIVE); Oxycodone Screen Urine NEGATIVE (NEGATIVE); Tricyclic Antidepressant Urine NEGATIVE (NEGATIVE)
[2024-08-21 11:56] LABS: BOX Test Reference Lab UNITY; BOX Test Sent Out UNITY BOX
[2024-08-21 12:43] LABS: Estimated Average Glucose 114 mg/dL; Glycohemoglobin A1C 5.6 % (4.5-6.2)
[2024-08-21 12:50] LABS: Thyroid Stimulating Hormone 7.721 uIU/mL (0.358-3.740)
[2024-08-22 06:08] LABS: HBsAg Screen Negative (Negative); HCV Ab Non Reactive (Non Reactive); HIV Ab/p24 Ag Screen Non Reactive (Non Reactive)
[2024-08-22 07:08] LABS: Rubella Antibodies, IgG 2.13 index (Immune >0.99)
[2024-08-22 12:09] LABS: Rapid Plasma Reagin, Quant Non Reactive titer (NonRea<1:1)
== END 2024-08-21 10:31 | disposition home or self-care (01) ==
PROVIDERS: Visit Provider Obstetrics & Gynecology
DX: Z34.01 Encounter for supervision of normal first pregnancy, first trimester (principal); Z36.0 Encounter for antenatal screening for chromosomal anomalies; N92.6 Irregular menstruation, unspecified
CPT/HCPCS: 36415; 80307; 83036; 84443; 85025; 86592; 86762; 86803; 86850; 86900; 86901; 87077; 87086; 87186; 87340; 87389

== ENCOUNTER 2024-09-12 16:28 | Outpatient (OUT) | payer BC, SELFPAY ==
--- OUTSIDE RECORDS SUMMARY | 2024-09-12 16:30 | XMS_ITS | Encounter Summary ---
Author Organization [facility] Address [address] [place] [address] Care Team Providers Care Manufacturing Director Name Role Phone Carrillo White MD Primary Care Provider [phone] Encounter Details Date Type Department Care Team (Late Contact Info) Description 08/28/2024 Abstract [facility] [address] [place] [address] Ann Ma MA Social History Tobacco Use Types Packs/Day Years Used Date Smoking Tobacco: Never Alcohol Use Standard Drinks/Week Comments Yes 0 (1 standard drink = 0.6 oz pur e alcohol) occasional alcohol use Estimated Date of Delivery Comme nts Yes 03/23/2025 Based on last me nstrual period of 06/16/2024 Sex and Gender Information Value Date Recorded Sex Assigned at Not on file Legal Sex Female 10:14 PM EDT Gender Identity Not on file Sexual Orientation Not on file documented as of this encounter Plan of Treatment Upcoming Encounters Date Type Department Care Team (Late Contact Info) Description 09/17/2024 10:50 AM EDT Routine [facility] [address] [place] [address] Santosh Marshall, [address], [facility] 01/01/2025 2:00 PM EDT Office Visit [facility] [address] [place] [address] Santosh Marshall, DO [address] [place] [address] documented as of this encounter Visit Diagnoses Not on filedocumented in this encounter Care Teams Manufacturing Director Relationship Specialty Start Date End Date Carrillo White MD [address] [place] [address] PCP - General Internal Medicine 11/29/22 documented as of this encounter
--- OUTSIDE RECORDS SUMMARY | 2024-09-12 16:30 | XMS_ITS | Encounter Summary ---
Author Organization [facility] Address [address] [place] [address] Care Team Providers Care Dockworker Name Role Phone Carrillo White MD Primary Care Provider [phone] Encounter Details Date Type Department Care Team (Late Contact Info) Description 08/30/2024 Telephone [facility] [address] [facility] [place] [address] Ann Ma MA Social History Tobacco [...] on file documented as of this encounter Miscellaneous Notes * Telephone Encounter - Ann Ma MA - 08/30/2024 8:56 AM EDT Pt called in regards to unity results. Pt informed of low risk screening. Pt voices understanding. documented in this encounter Plan of Treatment Upcoming Encounters Date Type Department Care Team (Late st Contact Info) Description 09/17/2024 10:50 AM EDT Routine [facility] [address] [facility] [place] [address] Santosh Marshall DO [address] [place] [address] 01/01/2025 2:00 PM EDT Office Visit [facility] [address] [place] [id number] Santosh Marshall, DO [address] [place], [place] [id number] documented as of this encounter Visit Diagnoses Not on filedocumented in this encounter Care Teams Dockworker Relationship Specialty Start Date End Date Carrillo White MD [address] [place] [address] PCP - General Internal Medicine 11/29/22 documented as of this encounter
--- OUTSIDE RECORDS SUMMARY | 2024-09-12 16:30 | XMS_ITS ---
Author Organization [facility] Source Produ ction (ClinicalSummary Clone) Address Unknown Care Team Providers Care Supervisor Laundry Name Role Phone Unavailable Primary Care Physician Unavailab le Results * [UNITY] ANEUPLOIDY NIPT Performed by: [employer] Component Value Range Date Fraction 8.6% 08/27/2024 02 :47 am UTC Rh(D) NIPT RhD DETECTED 08/27/2024 02:4 7 am UTC Sex Chromosome Aneuploidy NOT DETECTED 02:47 am UTC Monosomy X LOW RISK <1 in 10,000 2024 02:47 am UTC Trisomy 13 LOW RISK <1 in 10,000 2024 02:47 am UTC Trisomy 18 LOW RISK <1 in 10,000 2024 02:47 am UTC Trisomy 21 LOW RISK <1 in 10,000 2024 02:47 am UTC Sex FEMALE 08/27/2024 02:4 7 am UTC Gestation ARREOLA 08/28/19 02:47 am UTC For detailed report, see PDF See PDF 08/27/2024 02:47 am UTC 08/27/2024 02:4 7 am UTC Social History Observation Value Start Date End Date
--- OUTSIDE RECORDS SUMMARY | 2024-09-12 16:30 | XMS_ITS | Encounter Summary ---
Author Organization [facility] Address [address] [place] [place] [address] Care Team Providers Care Purse Framer Name Role Phone Carrillo White MD Primary Care Provider Encounter Details Date Type Department Care Team ([facility] Contact Info) Description 12/19/2023 Orders Only [facility] [address] [place] [address] Carmita Tapia LPN [address] [employer] [place] [address] Social History Tobacco Use Types Packs/Day Years Used Date Smoking Tobacco: Never Alcohol Use Standard Drinks/Week Comments Yes 0 (1 standard drink = 0.6 oz pur e alcohol) occasional alcohol use Comments No Sex and Gender Information Value Date Recorded Sex Assigned at Not on file Legal Sex Female 10:14 PM EDT Gender Identity Not on file Sexual Orientation Not on file documented as of this encounter Plan of Treatment Upcoming Encounters Date Type Department Care Team (Late Contact Info) Description 09/17/2024 10:50 AM EDT Routine [facility] [address] [place] [address] Santosh Marshall DO [address] [place], [place] [id number] 01/01/2025 2:00 PM EDT Office Visit [facility] [address] [place] [address] Santosh Marshall DO [address] [facility] [address] [place] [address] documented as of this encounter Procedures Procedure Name Priority Date/Time Associated Diagnosis Comments PAP SMEAR Routine 12/12/2023 12:00 AM EDT documented in this encounter Results * Pap Smear (12/12/2023 12:00 AM EDT) Swab Cervical swab / Unknown Joanna [facility] Ob LAB CYTOLOGY ORDERABLES Final Result EXTERNAL LAB documented in this encounter Visit Diagnoses Not on filedocumented in this encounter Care Teams Purse Framer Relationship Specialty Start Date End Date Carrillo White MD [address] [place] [address] PCP - General Internal Medicine 11/29/22 documented as of this encounter
--- OUTSIDE RECORDS SUMMARY | 2024-09-12 16:30 | XMS_ITS | Clinical Summary ---
Author Organization [facility] Address [address] [place] [address] Care Team Providers Care Scallop Cutter Name Role Phone Carrillo White MD Primary Care Provider [phone] Allergies No known active allergies Medications levothyroxine (Synthroid, Levoxyl) 100 MCG tablet Take 100 mcg by mouth Daily 5 Active magnesium oxide (Mag-Ox) 400 MG tabletIndicatio ns:Nonintractab le headache, unspecified chronicity pattern, unspecified headache type Take 1 tablet (400 mg) by mouth Daily 30 tablet 6 5 025 Active levothyroxine (Synthroid) 25 MCG tabletIndicatio ns:Thyroid disease Take 1 tablet (25 mcg) by mouth in the morning. Take before meals. 30 tablet 11 5 026 Active nitrofurantoin, macrocrystal-mo nohydrate, (Macrobid) 100 MG capsuleIndicati ons:Urinary tract infection without hematuria, site unspecified Take 1 capsule (100 mg) by mouth in the morning and 1 capsule (100 mg) before bedtime. Do all this for 7 days. 14 capsule 5 025 Active levothyroxine (Synthroid, Levoxyl) 112 MCG tablet Take 112 mcg by mouth in the morning. 3 025 Discontinued Encounters Date Type Department Care Team Description 09/11/[address] [address] [place] [address] Santosh Marshall, 09/11/2024 Tele[address] [facility] [address] [place] [address] Brit Alamo MA 09/11/[address] [facility] [address] [place] [address] Brit Alamo MA 08/30/[address] [facility] [address] [place] [address] Ann Ma [place] 08/28/2024 Abstract [facility] [address] [place] [address] Ann Ma [place] 08/22/[address] [facility] [address] [place] [address] Santosh Marshall, 08/21/2024 Clinisync Result Encounter [facility] External Department Unsolicited Santosh Marshall, 08/17/2024 9:30 AM EDT Initial [facility] [address] [place] [address] GA: [id number] 08/17/2024 9:00 AM EDT Ancillary Procedure [facility] [address] [place] [address] Missed menses from Last 3 Months Family History Medical History Relation Name Comments Cancer Father Diabetes Father Hypertension Father Mental illness Father Cancer Maternal Grandmother Diabetes Maternal Grandmother Hypertension Maternal Grandmother Stomach cancer Mother Diabetes Paternal Grandfather Cancer Paternal Grandmother Relation Name Status Comments Father Maternal Grandmother Mother Paternal Grandfather Paternal Grandmother Social History Tobacco Use Types Packs/Day Years Used Date Smoking Tobacco: Never Tobacco Cessation:Counseling Given: Not Answered Alcohol Use Standard Drinks/Week Comments Yes 0 [...] on file Sexual Orientation Not on file Last Filed Vital Signs Vital Sign Reading Time Taken Comments Blood Pressure 120/78 08/17/2024 10:00 AM EDT Pulse - - Temperature - - Respiratory Rate - - Oxygen Saturation - - Inhaled Oxygen Concentration - - Weight 62.3 kg (137 lb 6.4 oz) 08/17/2024 10:00 AM EDT Height 165.1 cm (5' 5 ) 11/29/2022 3:23 PM EDT Body Mass Index 22.86 11/29/2022 3:23 PM EDT Plan of Treatment Upcoming Encounters Date Type Department Care Team (Late st Contact Info) Description 09/17/2024 10:50 AM EDT Routine [facility] [address] [place] [address] Santosh Marshall, [address] [place] [address] 01/01/2025 2:00 PM EDT Office Visit [facility] [address] [place] [address] Santosh Marshall, [address] [place] [address] Procedures Procedure Name Priority Date/Time Associated Diagnosis Comments HBSAG SCREEN Routine 08/21/2024 11:01 AM EDT RAPID PLASMA REAGIN, QUANT Routine 08/21/2024 11:01 AM EDT HCV ANTIBODY RFX TO QUANT PCR Routine 08/21/2024 11:01 AM EDT ALL RUBELLA IGG AB Routine 08/21/2024 11 :01 AM EDT HIV AB/P24 AG WITH REFLEX Routine 08/21/2024 11:01 AM EDT ALL THYROID STIM HORMONE Routine 08/21/2024 11:01 AM EDT MLR HEMOGLOBIN A1C Routine 08/21/2024 11 :01 AM EDT ALL TYPE AND SCREEN Routine 08/21/2024 1 1:01 AM EDT BOX TEST Routine 08/21/2024 11:01 AM EDT ALL CBC WITH AUTO DIFF Routine 08/21/2024 11:01 AM EDT [facility] DRUG SCREEN RAPID (URINE) Routine 08/21/2024 10:38 AM EDT POCT URINALYSIS DIPSTICK Routine 08/17/2024 9:30 AM EDT Missed menses POCT , URINE Routine 08/17/2024 9:29 AM EDT Missed menses US OB TRANSVAGINAL Routine 08/17/2024 9: 27 AM EDT Missed menses from Last 3 Months Results * BOX TEST (08/21/2024 11:01 AM EDT) Pathologist [facility] BOX TEST SENT OUT UNITY BOX [facility] BOX1 PENDING SALE TO [facility] BOX2 08/21/24 [facility] 08/21/2024 11:0 1 AM EDT 08/21/2024 11:09 AM EDT Narrative [facility] - 08/21/2024 11:56 AM EDT UNITY BOX us Santosh Joanna DO LAB BLOOD ORDERABLES Final Resul t [facility] * HBSAG SCREEN (08/21/2024 11:01 AM EDT) Pathologist [facility] HBSAG SCREEN Negative Negative [facility] Comment: Performed at: - [facility] [id number] Voip Technician: Madi Maloney PhD, Phone: [phone] 08/21/2024 11:0 1 AM EDT 08/21/2024 11:04 AM EDT Narrative [facility] - 08/22/2024 12:09 PM EDT Santosh Joanna DO LAB BLOOD ORDERABLES Final Resul t Performing Organization Address [facility] Co de Phone Number [facility] * RAPID PLASMA REAGIN, QUANT (08/21/2024 11:01 AM EDT) RAPID PLASMA REAGIN, QUANT Non Reactive NonRea<1: 1 titer [facility] Comment: Please Note: This test does not meet current guidelines for screening and diagnosis of syphilis. This test is intended for following treatment response in patients being treated for syphilis infection. To screen for syphilis infection, a reflex cascade that includes both RPR and a treponema-specific assay should be utilized, such as Treponema pallidum (Syphilis) Screening [place] (053844) or Rapid Plasma Reagin (RPR) Test With Reflex to Quantitative RPR and Confirmatory Treponema pallidum Antibodies (943682). Performed at: [facility] [id number] Voip Technician: Madi Maloney PhD, Phone: [phone] 08/21/2024 11:0 1 AM EDT 08/21/2024 11:04 AM EDT [facility] 08/22/2024 12:09 PM EDT [facility] LAB BLOOD ORDERABLES Final Resul t Performing Organization Address City/[facility] Co de Phone Number [facility] * HIV AB/P24 AG WITH REFLEX (08/21/2024 11:01 AM EDT) Pathologist [facility] HIV AB/P24 AG SCREEN Non Reactive Non Reactive [facility] Comment: HIV-1/HIV-2 antibodies and HIV-1 p24 antigen were NOT detected. There is no laboratory evidence of HIV infection. HIV Negative Performed at: [facility] [id number] Voip Technician: Madi Maloney PhD, Phone: [phone] 08/21/2024 11:0 1 AM EDT 08/21/2024 11:04 AM EDT Narrative [facility] - 08/22/2024 6:08 AM EDT Santosh Joanna DO LAB BLOOD ORDERABLES Final Resul t Performing Organization Address [facility]/ZIP Co de Phone Number [facility] * HCV ANTIBODY RFX TO QUANT PCR (08/21/2024 11:01 AM EDT) Pathologist [facility] HCV AB Non Reactive Non Reactive [facility] INTERPRETATION: Comment . [facility] Comment: Not infected with HCV unless early or acute infection is suspected (which may be delayed in an immunocompromised individual), or other evidence exists to indicate HCV infection. Performed at: [facility] [id number] Voip Technician: Madi Maloney PhD, Phone: [phone] 08/21/2024 11:0 1 AM EDT 08/21/2024 11:04 AM EDT Narrative [facility] - 08/22/2024 7:08 AM EDT Santosh Joanna DO LAB BLOOD ORDERABLES Final Resul t Performing Organization Address [facility] Phone Number [facility] * MLR HEMOGLOBIN A1C (08/21/2024 11:01 AM EDT) Pathologist [facility] GLYCOHEMOGLOBIN A1C 5.6 4.5 - 6.2 % [facility] Comment: ADA RECOMMENDED LIMIT 4.0 - 6.0 ADA THERAPEUTIC TARGET < 7.0 ACTION SUGGESTED > 7.0 ESTIMATED AVERAGE GLUCOSE 114 mg/dL [facility] 08/21/2024 11:0 1 AM EDT 08/21/2024 11:04 AM EDT Narrative [facility] - 08/21/2024 1:05 PM EDT us Santosh Joanna DO [facility] Final Result Performing Organization Address City/[facility]/ZIP Co de Phone Number [facility] * ALL TYPE AND SCREEN (08/21/2024 11:01 AM EDT) BLOOD TYPE A Positive [facility] ANTIBODY SCREEN NEGATIVE [facility] 08/21/2024 11:0 1 AM EDT 08/21/2024 11:04 AM EDT Narrative [facility] - 08/21/2024 12:03 PM EDT [facility] , us Santosh Joanna DO CLINISYNC Final Result [facility] * (ABNORMAL) ALL THYROID STIM HORMONE (08/21/2024 11:01 AM EDT) Pathologist [facility] THYROID STIMULATING HORMONE 7.721(H) 0.358 - 3.740 uIU/mL [facility] 08/21/2024 11:0 1 AM EDT 08/21/2024 11:04 AM EDT Narrative [facility] - 08/21/2024 1:06 PM EDT us Santosh Joanna DO CL[facility] Final Result Performing Organization Address City/[facility]/ZIP Co de Phone Number [facility] * ALL RUBELLA IGG AB (08/21/2024 11:01 AM EDT) Pathologist [facility] RUBELLA ANTIBODIES, IGG 2.13 Immune >0.99 index [facility] Comment: Non-immune <0.90 Equivocal 0.90 - 0.99 Immune >0.99 Performed at: [address] [id number] Voip Technician: Madi Maloney PhD, Phone: [phone] 08/21/2024 11:0 1 AM EDT 08/21/2024 11:04 AM EDT Narrative [facility] - 08/22/2024 7:08 AM EDT us Santosh Joanna DO CLINIS[facility]NC Final Result [facility] TB * (ABNORMAL) ALL CBC WITH AUTO DIFF (08/21/2024 11:01 AM EDT) [facility] WBC 7.8 4.0 - 11.0 10 3/uL [facility] RBC 4.09(L) 4.20 - 5.40 10 6/uL [facility]H HGB 13.7 12.0 - 16.0 g/dL [facility] TBH HCT 38.5 36.0 - 48.0 % [facility] MCV 94.1 81.0 - 99.0 fL [facility] TBH MCH 33.5 26.7 - 34.0 pg TBH TBH MCHC 35.6(H) 29.9 - 35.2 g/dL [facility] TBH RDW 12.3 11.0 - 15.0 % [facility] TBH PLT 211 150 - 450 10 3/uL [facility] TBH MPV 11.1 9.5 - 13.5 fL [facility] NEUTROPHILS PERCENT AUTO 72.6 43.0 - 75.0 % [facility] LYMPHOCYTES PERCENT AUTO 21.0 20.5 - 60.0 % [facility] MONOCYTES PERCENT AUTO 5.1 1.7 - 12.0 % [facility]H EO % 0.5(L) 0.9 - 7.0 % [facility] BASOPHILS PERCENT AUTO 0.5 0.2 - 2.0 % [facility] IMMATURE GRANULOCYTES PCT AUTO 0.3 0.0 - 0.5 % [facility] NEUTROPHILS ABSOLUTE AUTO 5.6 1.4 - 6.5 10 3/uL [facility] LYMPHOCYTES ABSOLUTE AUTO 1.6 1.2 - 3.8 10 3/uL [facility] MONOCYTES ABSOLUTE AUTO 0.4 0.3 - 0.8 10 3/uL [facility] TBH EO # 0.0 0.0 - 0.7 10 3/uL TBH BASOPHILS ABSOLUTE AUTO 0.0 0.0 - 0.1 10 3/uL [facility] IMMATURE GRANULOCYTES ABS AUTO 0.02 0.00 - 0.03 10 3/uL [facility] 08/21/2024 11:0 1 AM EDT 08/21/2024 11:04 AM EDT Narrative [facility] - 08/21/2024 11:10 AM EDT us Santosh Joanna DO CLINISYNC Final Result [facility] * TB DRUG SCREEN RAPID (URINE) (08/21/2024 10:38 AM EDT) CANNABINOID SCREEN URINE NEGATIVE NEGATIVE TBH PHENCYCLIDINE SCREEN URINE NEGATIVE NEGATIVE TB[facility] COCAINE SCREEN URINE NEGATIVE NEGATIVE TBH METHAMPHETAMINES SCREEN URINE NEGATIVE NEGATIVE TBH OPIATE SCREEN URINE NEGATIVE NEGATIVE TBH AMPHETAMINE SCREEN URINE NEGATIVE NEGATIVE TBH BENZODIAZEPINES SCREEN URINE NEGATIVE NEGATIVE TBH TRICYCLIC ANTIDEPRESSANT URINE NEGATIVE NEGATIVE TBH METHADONE SCREEN URINE NEGATIVE NEGATIVE TBH BARBITURATES SCREEN URINE NEGATIVE NEGATIVE TBH OXYCODONE SCREEN URINE NEGATIVE NEGATIVE TBH BUPRENORPHINE SCREEN URINE NEGATIVE NEGATIVE [facility] Comment: DRUG CLASS TEST SYSTEM CUT-OFF CONCENTRATIONS ARE FOLLOWS: AMP (Amphetamine): 500 ng/mL BAR (Barbiturates): 200 ng/mL BZO (Benzodiazepines): 150 ng/mL BUP (Buprenorphine): 10 ng/mL INGRID (Cocaine): 150 ng/mL mAMP (Methamphetamine): 500 ng/mL MTD (Methadone): 200 ng/mL OPI (Opiates): 100 ng/mL OXY (Oxycodone): 100 ng/mL PCP (Phencyclidine): 25 ng/mL THC (Cannabinoids): 50 ng/mL TCA (Trycyclic Antidepressants): 300 ng/mL 08/21/2024 10:3 8 AM EDT 08/21/2024 11:10 AM EDT Narrative [facility] - 08/21/2024 11:25 AM EDT Santosh Marshall DO CLINISYNC Final Result [facility] * POCT urinalysis dipstick manually resulted (08/17/2024 9:30 AM EDT) Color, UA Yellow Clarity, UA Clear Glucose, UA Negative Negative - 2000(110) ++++ mg/dL Bilirubin, UA Negative Negative - 4(70) +++ mg/dL Ketones, UA Negative Negative - 160(16) ++++ mg/dL Spec Grav, UA 1.015 1 - 1.03 Blood, UA Negative Negative - 50 Cedric/mcL pH, UA 7.0 5 - 9 Protein, UA Negative Negative - 2000(20) ++++ mg/dL Urobilinogen, UA 0.2 0.2 - 12 mg/dL Leukocytes, UA Negative Negative - 500+++ Ayana/mcL Nitrite, UA Negative Negative - Positive Urine 08/17/2024 9:30 AM EDT us Santosh Joanna DO POINT OF CARE TEST ENTER/EDIT OR DERABLES Final Result * (ABNORMAL) POCT , urine manually resulted (08/17/2024 9:29 AM EDT) Preg Test, Ur Positive Negative Urine 08/17/2024 9:29 AM EDT us Santosh Joanna DO POINT OF CARE TEST ENTER/EDIT OR DERABLES Final Result * US OB transvaginal (08/17/2024 9:27 AM EDT) Anatomical Region Laterality Modality Body Ultrasound 08/20/2024 10:2 4 AM EDT Narrative 08/20/2024 10:24 AM EDT EXAM: US OB TRANSVAGINAL HISTORY: Dating. COMPARISON: [...] II, MD, PHD at 20-Aug-2024 10:22:40 AM [facility] Procedure Note Clay Carlin MD - 08/20/2024 EXAM: US OB TRANSVAGINAL HISTORY: Dating. COMPARISON: None available. TECHNIQUE: Two-dimensional transvaginal grayscale ultrasound imaging ofthe pelvis was performed. Color Doppler evaluation of the ovaries was alsoperformed. FINDINGS: The uterus demonstrates a normal homogeneous echotexture. The cervixmeasures 4.0 cm in length and the cervical os is closed. The right ovary measures 2.7 x 1.2 x 2.3 cm and demonstrates a normalechotexture. There is normal color Doppler flow. The left ovary measures 2.9 x 1.8 x 2.4 cm and demonstrates a normalechotexture. There is normal color Doppler flow. There is a presumedcorpus luteal cyst visualized. No fluid is present within the cul-de-sac. There is a single, live intrauterine gestation identified with a fetalheart rate of 173 beats per minute and a crown-rump length measurement of2.1 cm, correlating to a gestational age of 8 weeks 5 days (+/- 5 days).There is no subchorionic hemorrhage visualized. A yolk sac isvisualized. IMPRESSION: 1. Single, live intrauterine gestation 8 weeks, 6 days by LMP. Today'sultrasound measurements correlate with a gestational age of 8 weeks 5 days(+/- 5 days). RENATO by today's ultrasound is 03/24/2025. 2. Normal color Doppler evaluation of the bilateral ovaries. Interpreted by: Electronically signed by CLAY CARLIN II, MD, PHD [id number] 10:22:40 AM [facility] us Santosh Joanna DO IMG OB US PROCEDURES Final Resul t from Last 3 Months Insurance BCBS Care Teams Scallop Cutter Relationship Specialty Start Date End Date Carrillo White MD [address] [place] [address] PCP - General Internal Medicine 11/29/22
--- OUTSIDE RECORDS SUMMARY | 2024-09-12 16:30 | XMS_ITS | Encounter Summary ---
Author Organization [facility] Address [address] [place] [address] Care Team Providers Care Jailer Chief Name Role Phone Carrillo White MD Primary Care Provider [phone] Encounter Details Date Type Department Care Team (Late Contact Info) Description 09/11/2024 Telephone [facility] OB [address] [place] [address] Brit Alamo MA [address] [place] [address] [place] [address] Social History Tobacco Use Types Packs/Day Years [...] encounter Miscellaneous Notes * Telephone Encounter - Brit Alamo MA - 09/11/2024 10:32 AM EDT Pt was called advised that Macrobid was called into her pharmacy due to a UTI found in her urine cx. PVU. documented in this encounter Plan of Treatment Upcoming Encounters Date Type Department Care Team (Late Contact Info) Description 09/17/2024 10:50 AM EDT Routine [facility] [address] [facility] [place] [phone] Santosh Marshall, DO [address] [place], [place] [id number] 01/01/2025 2:00 PM EDT Office Visit [facility] OB [address] [place] [address] Santosh Marshall, DO [address] [place], [place] [id number] documented as of this encounter Visit Diagnoses Diagnosis Urinary tract infection without hematuria, site unspecified documented in this encounter Care Teams Jailer Chief Relationship Specialty Start Date End Date Carrillo White MD [address] [place] [address] PCP - General Internal Medicine 11/29/22 documented as of this encounter
--- OUTSIDE RECORDS SUMMARY | 2024-09-12 16:30 | XMS_ITS | Encounter Summary ---
Author Organization [facility] Address [address] [place] [address] Care Team Providers Care Fish Roe Technician Name Role Phone Carrillo White MD Primary Care Provider [phone] Encounter Details Date Type Department Care Team ([facility] st Contact Info) Description 09/11/2024 Telephone [facility] [address] [place] [address] Brit Alamo MA [address] [place] [address] Social History Tobacco Use Types Packs/Day Years [...] Encounter - Brit Alamo MA - 09/11/2024 3:19 PM EDT Pt called and stated she had been exposed to a child that has fifth disease at a constitution party on 09/08/2024. Pt stated that she did hug the shira sister at the constitution party but, not the exposed child. Pt is currently and just wants to make sure her and the baby are ok. Spoke w/Dr. Marshall and he has labsordered to check her antibodies. Labs were ordered. Called pt and advised that labs were sent and to have them drawn. As soon as michel gets the results he will determine if you will need medication or not. PVU. documented in this encounter Plan of Treatment Upcoming Encounters Date Type Department Care Team (Late st Contact Info) Description 09/17/2024 10:50 AM EDT Routine [facility] OB [address] [place] [phone] Santosh Marshall, DO [address] [place] [address] 01/01/2025 2:00 PM EDT Office Visit [facility] [address] [place] [phone] Santosh Marshall, DO [address] [place] [address] documented as of this encounter Visit Diagnoses Diagnosis Parvovirus exposure documented in this encounter Care Teams Fish Roe Technician Relationship Specialty Start Date End Date Carrillo White MD [address] [place] [address] PCP - General Internal Medicine 11/29/22 documented as of this encounter
--- OUTSIDE RECORDS SUMMARY | 2024-09-12 16:30 | XMS_ITS | Encounter Summary ---
Author Organization [facility] Address [address] [place] [address] Care Team Providers Care Manager Wellness Name Role Phone Carrillo White MD Primary Care Provider [phone] Encounter Details Date Type Department Care Team ([facility] Contact Info) Description 09/11/2024 Telephone [facility] OB [address] [place] [address] Santosh Marshall [facility] [address] [place], [place] [address] Social History Tobacco Use Types Packs/Day Years [...] Upcoming Encounters Date Type Department Care Team ([facility] Contact Info) Description 09/17/2024 10:50 AM EDT Routine [facility] OB [address] [place] [phone] Santosh Marshall DO [facility] [place] [address] 01/01/2025 2:00 PM EDT Office Visit [facility] [place] [address] Santosh Marshall, DO [address] [facility] [place] [address] Scheduled Orders Name Type Priority Associated Diagnoses Orde r Schedule Parvovirus B19 antibody, IgG and IgM Lab Routine Exposure to parvovirus Expected: 09/11/2024 (Approximate), Expires: 09/11/2025 documented as of this encounter Visit Diagnoses Diagnosis Exposure to parvovirus documented in this encounter Care Teams Manager Wellness Relationship Specialty Start Date End Date Carrillo White MD [address] [place] [address] PCP - General Internal Medicine 11/29/22 documented as of this encounter
== END 2024-09-12 16:29 | disposition home or self-care (01) ==
LOC: LAB 16:28
PROVIDERS: Visit Provider Obstetrics & Gynecology
DX: Z20.828 Contact with and (suspected) exposure to other viral communicable diseases (principal)
CPT/HCPCS: 36415; 86747

== ENCOUNTER 2024-09-24 12:28 | Outpatient (OUT) | payer BC, SELFPAY ==
--- OUTSIDE RECORDS SUMMARY | 2024-09-17 10:50 | XMS_ITS | Encounter Summary ---
Author Organization [facility] Address [address] [place] [address] Care Team Providers Care Distribution Lead Name Role Phone Carrillo White MD Primary Care Provider [phone] Reason for Visit * Reason Comments Routine Visit Encounter Details Date Type Department Care Team ([facility] Contact Info) Description 09/17/2024 10:50 AM EDT Routine [facility] [address] [place] [address] Santosh Marshall, DO [address] [place] [address] 13 weeks gestation of ([facility]); Second trimester ([facility]); Thyroid disease ; History of prior with IUGR ; Diabetes mellitus screening Social History Tobacco Use Types Packs/Day Years [...] on file documented as of this encounter Last Filed Vital Signs Vital Sign Reading Time Taken Comments Blood Pressure 112/70 09/17/2024 11:10 AM EDT Pulse - - Temperature - - Respiratory Rate - - Oxygen Saturation - - Inhaled Oxygen Concentration - - Weight 60.2 kg (132 lb 12.8 oz) 025 11:10 AM EDT Height - - Body Mass Index 22.1 11/29/2022 3:23 PM EDT documented in this encounter Progress Notes * Aliya Kandace, KALE - 09/17/2024 10:50 AM EDT Reason for Appointment: Patient ID: Evelin Church is a 24 y.o. female who presents for Routine Visit Patient presents today for Return OB appointment. MEDICATIONS Current Outpatient Medications Medication Instructions levothyroxine (SYNTHROID) 25 mcg, Oral, Daily before breakfast levothyroxine (SYNTHROID) 125 mcg, Oral, Daily before breakfast levothyroxine (SYNTHROID, LEVOXYL) 100 mcg, Daily nitrofurantoin (macrocrystal-monohydrate) (MACROBID) 100 mg, Oral, 2 times daily ALLERGIES No Known Allergies PROBLEMS Active Ambulatory Problems Diagnosis Date Noted No Active Ambulatory Problems Resolved Ambulatory Problems Diagnosis Date Noted No Resolved Ambulatory Problems Past Medical History: Diagnosis Date BMI 23.0-23.9, adult Thyroid disease Well woman exam HISTORY PAST MEDICAL HISTORY SOCIAL HISTORY Past Medical History: Diagnosis Date BMI 23.0-23.9, adult Thyroid disease Well woman exam Social History Tobacco Use [...] SYSTEMS Review of Systems: Review of Systems Constitutional: Negative. HENT: Negative. Eyes: Negative. Respiratory: Negative. Cardiovascular: Negative. Gastrointestinal: Negative. Genitourinary: Negative. Musculoskeletal: Negative. Skin: Negative. Neurological: Negative. All other systems reviewed and are negative. Hematological: Negative. Endocrine: Negative. Allergic/Immunologic: Negative. OBJECTIVE Objective: Physical Exam Constitutional: Appearance: Normal appearance. She is well-developed. Cardiovascular: Rate and Rhythm: Normal rate and [...] nursing note reviewed. Exam conducted with a rechecker present. Vitals: Estimated body mass index is 22.1 kg/m?? as calculated from the following: Height as of 11/29/22: 5' 5 . Weight as of this encounter: 132 lb 12.8 oz. BP: 112/70 Patient's last menstrual period was 06/16/2024. ASSESSMENT & PLAN ICD-10-CM 1. 13 weeks gestation of ([facility]) Z3A.13 2. Second trimester ([facility]) Z34.92 3. Thyroid disease E07.9 levothyroxine (Synthroid) 125 MCG tablet 4. History of prior with IUGR Z87.59 5. Diabetes mellitus screening Z13.1 Glucose tolerance, 1 hour Glucose tolerance, 1 hour New OB: Patient presents today for 1st time obstetrics appointment with provider. Patient is currently 13w2d . Patients history has been reviewed in great detail including any potential risks. Patient stated she currently has no complaints. Expectations throughout regarding labs, ultrasounds, and appointments have been discussed with the patient in detail. It was reiterated that the patient is to drink 6-8 glasses of water a day, eat 6 small meals a day, do not consume raw or undercooked meat, and stay away from [facility]. Patient has been consulted regarding any further do's and don'tsof . Patient voiced understanding and all questions and concerns were answered. Pt has h/o IUGR, thyroid disease, pt being referred to [facility] for level II ultrasound. Pt should be taking 125mcg of levothyroxine. Pt voiced understanding. Pt to start baby aspirin. Orders Placed This Encounter Procedures Glucose tolerance, 1 hour Follow Up: Patient is to return in 4 weeks for routine OB appointment. Documented by Aliya Jeronimo LPN on behalf of: Santosh Marshall DO documented in this encounter Plan of Treatment Upcoming Encounters Date Type Department Care Team (Late st Contact Info) Description 10/15/2024 9:50 AM EDT Routine [facility] [address] [place] [id number] Erum Guidry PA [address] [place] [address] 01/01/2025 2:00 PM EDT Office Visit [facility] [address] [place] [id number] Santosh Marshall DO [address] [place], [place] [id number] Scheduled Orders Name Type Priority Associated Diagnoses Orde r Schedule Glucose tolerance, 1 hour Lab Routine Diabetes mellitus screening Expected: 09/17/2024 (Approximate), Expires: 09/17/2025 documented as of this encounter Visit Diagnoses Diagnosis 13 weeks gestation of ([facility]) Second trimester ([facility]) state, incidental Thyroid disease Unspecified disorder of thyroid History of prior with IUGR Diabetes mellitus screening Screening for diabetes mellitus documented in this encounter Care Teams Distribution Lead Relationship Specialty Start Date End Date Carrillo White MD [address] [place] [address] PCP - General Internal Medicine 11/29/22 documented as of this encounter
--- OUTSIDE RECORDS SUMMARY | 2024-09-17 10:57 | XMS_ITS ---
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 Name Role Phone SHAUNA NAIR Attending Unavailable SHAUNA NAIR Attending Unavailable Ham Robins Attending Unavailable Marta Almanzar Admitting Unavailable Marta Almanzar Attending Unavailable Marta Almanzar Admitting Unavailable Marta Almanzar Attending Unavailable Ham Robins Attending Unavailable Marta Almanzar Attending Unavailable ASHANTI JOHSNON Referring Unavailable ASHANTI JOHNSON Attending Unavailable PROBLEMS No Problem Records Found PROCEDURES No Procedure Records Found RESULTS US OB TRANSVAGINAL Observed: 08/17/2024 8:56 AM Status: F Source: [facility] EPIC Order Comment: US OB TRANSVA GINAL No LMP recorded. EXAM: US OB TRANSVAGINAL HISTORY: Dating. COMPARISON: [...] II, MD, PHD at 20-Aug-2024 10:22:40 AM [facility] PATIENT EDUCATION Observed: 07/09/2024 8:33 AM Status: C Source: [facility] Patient Education Endocrinology Hypothyroidism Hypothyroidism is when [...] Follow these instructions at home: ??? Take pxcn-ppf-hwmzcwx and prescription medicines only as told by [...] provider. Document Revised: 03/09/2022 Document Reviewed: 03/09/2022 [email or web address] Patient Education ? 2023 AI Patents.Obstetrics and Gynecology Health Maintenance, Female Adopting a healthy lifestyle and getting preventive care are important in promoting health and wellness. Ask your health care provider about: ??? The right schedule for you to have regular tests and exams. ??? Things you can do on your own to prevent diseases and keep yourself healthy. What should I know about diet, weight, and exercise? Eat a healthy diet ??? Eat a diet that includes plenty of vegetables, fruits, low-fat dairy products, and lean protein. ??? Do not eat a lot of foods that are high in solid fats, added sugars, or sodium. Maintain a healthy weight Body mass index (BMI) is used to identify weight problems. It estimates body fat based on height and weight. Your health care provider can help determine your BMI and help you achieve or maintain a healthy weight. Get regular exercise Get regular exercise. This is one of the most important things you can do for your health. Most adults should: ??? Exercise for at least 150 minutes each week. The exercise should increase your heart rate and make you sweat (moderate-intensity exercise). ??? Do strengthening exercises at least twice a week. This is in addition to the moderate-intensity exercise. ??? Spend less time sitting. Even light physical activity can be beneficial. Watch cholesterol and blood lipids Have your blood tested for lipids and cholesterol at 20 years of age, then have this test every 5 years. Have your cholesterol levels checked more often if: ??? Your lipid or cholesterol levels are high. ??? You are older than 40 years of age. ??? You are at high risk for heart disease. What should I know about cancer screening? Depending on your health history and family history, you may need to have cancer screening at various ages. This may include screening for: ??? Breast cancer. ??? Cervical cancer. ??? Colorectal cancer. ??? Skin cancer. ??? Lung cancer. What should I know about heart disease, diabetes, and high blood pressure? Blood pressure and heart disease ??? High blood pressure causes heart disease and increases the risk of stroke. This is more likely to develop in people who have high blood pressure readings or are overweight. ??? Have your blood pressure checked: ? Every 3?5 years if you are 18?39 years of age. ? Every year if you are 40 years old or older. Diabetes Have regular diabetes screenings. This checks your fasting blood sugar level. Have the screening done: ??? Once every three years after age 40 if you are at a normal weight and have a low risk for diabetes. ??? More often and at a younger age if you are overweight or have a high risk for diabetes. What should I know about preventing infection? Hepatitis B If you have a higher risk for hepatitis B, you should be screened for this virus. Talk with your health care provider to find out if you are at risk for hepatitis B infection. Hepatitis C Testing is recommended for: ??? Everyone born from 1945 through 1965. ??? Anyone with known risk factors for hepatitis C. Sexually transmitted infections (STIs) ??? Get screened for STIs, including gonorrhea and chlamydia, if: ? You are sexually active and are younger than 24 years of age. ? You are older than 24 years of age and your health care provider tells you that you are at risk for this type of infection. ? Your sexual activity has changed since you were last screened, and you are at increased risk for chlamydia or gonorrhea. Ask your health care provider if you are at risk. ??? Ask your health care provider about whether you are at high risk for HIV. Your health care provider may recommend a prescription medicine to help prevent HIV infection. If you choose to take medicine to prevent HIV, you should first get tested for HIV. You should then be tested every 3 months for as long as you are taking the medicine. ??? If you are about to stop having your period (premenopausal) and you may become , seek counseling before you get . ??? Take 400 to 800 micrograms (mcg) of folic acid every day if you become . ??? Ask for control (contraception) if you want to prevent . Osteoporosis and menopause Osteoporosis is a disease in which the bones lose minerals and strength with aging. This can result in bone fractures. If you are 65 years old or older, or if you are at risk for osteoporosis and fractures, ask your health care provider if you should: ??? Be screened for bone loss. ??? Take a calcium or vitamin D supplement to lower your risk of fractures. ??? Be given hormone replacement therapy (HRT) to treat symptoms of menopause. Follow these instructions at home: Alcohol use ??? Do not drink alcohol if: ? Your health care provider tells you not to drink. ? You are , may be , or are planning to become . ??? If you drink alcohol: ? Limit how much you have to: ? 0?1 drink a day. ? Know how much alcohol is in your drink. In the [place] one drink equals one 12 oz bottle of beer (355 mL), one 5 oz glass of wine (148 mL), or one 1? oz glass of hard liquor (44 mL). Lifestyle ??? Do not use any products that contain nicotine or tobacco. These products include cigarettes, chewing tobacco, and vaping devices, such as e-cigarettes. If you need help quitting, ask your health care provider. ??? Do not use street drugs. ??? Do not share needles. ??? Ask your health care provider for help if you need support or information about quitting drugs. General instructions ??? Schedule regular health, dental, and eye exams. ??? Stay current with your vaccines. ??? Tell your health care provider if: ? You often feel depressed. ? You have ever been abused or do not feel safe at home. Summary ??? Adopting a healthy lifestyle and getting preventive care are important in promoting health and wellness. ??? Follow your health care provider's instructions about healthy diet, exercising, and getting tested or screened for diseases. ??? Follow your health care provider's instructions on monitoring your cholesterol and blood pressure. This information is not intended to replace advice given to you by your health care provider. Make sure you discuss any questions you have with your health care provider. Document Revised: 07/27/2021 Document Reviewed: 07/27/2021 Elsevier Patient Education ? 2023 AI Patents. AMBULATORY VISIT SUMMARY Observed: 07/09 7:58 AM Status: F Source: [facility] Ambulatory Visit Summary YANA PAYNE :2000 Visit Date:07/09/2024 Ambulatory Visit Instructions Your Diagnosis Establishing care with new doctor, encounter for Hypothyroidism Migraine without aura Non-smoker BMI 22.0-22.9, adult Your Care Team Attending Physician - Marta Rivas Primary Care Physician - Ya Wang This Is Your Medications List Contact prescribing physician if questions or concerns amoxicillin-clavulanate (Augmentin 875 mg-125 mg Tab) levothyroxine (Synthroid 100 mcg Tab) Procedures Performed None. Discharge Vitals Heart Rate (Peripheral) 88 Respiratory Rate 16 Blood Pressure 100/64 Height 166 cm Height 65 in Weight 61.7 kg Weight 136.025 lb BMI 22.39 What to do next Scheduled Follow-Up Appointments Tuesday 8:40 AM EDT With: Marta Rivas Where: [facility] [address] [place] [address] [address] [place] [address]- Medications What How Much When Why Instructions Unchanged amoxicillin-clavulanate (Augmentin 875 mg-125 mg Tab) 1 Tablets [...] you for choosing us for your care. FAMILY MEDICINE OFFICE/CLINI C NOTE Observed: 07/09/2024 7:58 AM Status: F Source: [facility] Medicine Office/Clini c Note Chief Complaint Establish care HPI Staff [...] anymore, managed with tylenol Social History: Occupation: [employer] Family life: home with and daughter Diet: no restrictions Caffeine: 1 cup coffee/day Exercise: active lifestyle Alcohol use: denies Drug use: denies Smoking status: denies Health Maintenance: Routine labs: thyroid labs 06/2024, declines further labs Pap (21-64yo): 04/2023 Specialists: Normalizer: krysta Dentist: prmary OBGYN: Joanna Review of Systems PHQ Score [...] non tender, no masses : not evaluated Musculoskeletal:Normal ROM of extremities, self ambulating Neuro:grossly normal [...] empty stomach away from other medications. Recheck TSH/T4 -will call with lab results and change dose accordingly if needed Remove the following from your diet: ultra-processed foods, artificial sweeteners, trans fats, alcohol. Incorporate the following into your diet: whole foods rich iodine (fish, iodized salt), selenium (brazil nuts, sardines, oysters, salmon), omega-3 (fatty fish, seafood, walnuts, flax seeds, pumpkin seeds). Protein-rich food sources (poultry, beef, liver). Fiber-rich foods (nuts, seeds, low-glycemic grains, legumes) Consider supplementations: Multivitamin, [place]-3, B vitamins, Magnesium, Vitamin D, liposomal Vitamin C, adaptogens such as ashwagandha, milk thistle, curcumin (turmeric), selenium). Incorporate lifestyle changes: stress control (meditation, yoga, journaling, nature walks, breathwork), prioritize sleep, exercise regularly, reduce exposure to environmental toxins (use clean personal care products, shop organic when possible, drink filtered water, use air filters) f/u 6 mo to reassess or sooner if sx occur. Pt verbalized understanding Ordered: TSH With T4fr Reflex 3. Migraine without aura (G43.009: Migraine without aura, not intractable, without status migrainosus) Chronic, stable. Well managed with otc medication. Pt is aware of red flags/when to report to ER for emergency medical evaluation. 4. Non-smoker (Z78.9: Other specified health status) Continue non smoking 5. BMI 22.0-22.9, adult (Z68.22: Body mass index [BMI] 22.0-22.9, adult) BMI within normal range. Follow-up With When Contact Information Marta Rivas In 6 months Additional Instructions: Patient Education Hypothyroidism Health Maintenance, Female Problem List/Past Medical History Ongoing Acute sinusitis BMI 22.0-22.9, adult Encounter for [...] Never (less than 100 in lifetime) Tobacco Use:. Never Smokeless Tobacco Use:., 07/09/2024 Family History Diabetes mellitus type 2: Mother. Immunizations Vaccine Date Status Comments influenza virus vaccine, inactivated - Not Given Patient Refuses influenza virus vaccine, inactivated - Not Given Patient Refuses diphtheria/pertussis, acel/tetanus adult 05/26/2021 Recorded meningococcal group B vaccine 10/21/2015 Recorded meningococcal group B vaccine 09/15/2015 Recorded meningococcal conjugate vaccine 09/15/2015 Recorded diphtheria/pertussis, acel/tetanus adult 06/22/2010 Recorded meningococcal conjugate vaccine 06/22/2010 Recorded poliovirus vaccine, inactivated 10/16/2003 Recorded measles/mumps/rubella virus vaccine 10/16/2003 Recorded DTaP, unspecified formulation 10/16/2003 Recorded DTaP, unspecified formulation 02/03/2000 Recorded varicella virus vaccine 01/26/1999 Recorded measles/mumps/rubella virus vaccine 01/26/1999 Recorded DTaP, unspecified formulation 1998 Recorded DTaP, unspecified formulation 1998 Recorded DTaP, unspecified formulation 1998 Recorded hepatitis B pediatric vaccine 1998 Recorded Result Comment: Electronical ly Signed By: Marta Rivas.br\Date and Time Signed: 07/09/24 08:35 EDT PATIENT EDUCATION Observed: 07/05/2024 4:05 PM Status: C Source: [facility] Patient Education ENT How to Perform a [...] cannot use soap and water, use hand recharger. 2. Wash your device using the directions [...] provider. Document Revised: 08/24/2021 Document Reviewed: 08/24/2021 [email or web address] Patient Education ? 2023 [employer] Inc.Infectious Disease Sinus Infection, Adult A sinus infection [...] A fever. How is this diagnosed? Your symptoms. ??? Your medical history. ??? A physical exam. ??? Tests to find out if your condition is short-term (acute) or long-term (chronic). Your doctor may: ? Check your nose for growths (polyps). ? Check your sinuses using a tool that has a light on one end (endoscope). ? Check for allergies or germs. ? Do imaging tests, such as an MRI or CT scan. How is this treated? Treatment for this condition depends on the cause and whether it is short-term or long-term. ??? If caused by a virus, your symptoms should go away on their own within 10 days. You may be given medicines to relieve symptoms. They include: ? Medicines that shrink swollen tissue in the nose. ? A spray that treats swelling of the nostrils. ? Rinses that help get rid of thick mucus in your nose (nasal saline washes). ? Medicines that treat allergies (antihistamines). ? Vlsk-ixy-dzstems pain relievers. ??? If caused by bacteria, your doctor may wait to see if you will get better without treatment. You may be given antibiotic medicine if you have: ? A very bad infection. ? A weak body defense system. ??? If caused by growths in the nose, surgery may be needed. Follow these instructions at home: Medicines ??? Take, use, or apply vodl-iwn-yzpwoik and prescription medicines only as told by your doctor. These may include nasal sprays. ??? If you were prescribed an antibiotic medicine, take it as told by your doctor. Do not stop taking it even if you start to feel better. Hydrate and humidify ??? Drink enough water to keep your pee (urine) pale yellow. ??? Use a cool mist humidifier to keep the humidity level in your home above 50%. ??? Breathe in steam for 10?15 minutes, 3?4 times a day, or as told by your doctor. You can do this in the bathroom while a hot shower is running. ??? Try not to spend time in cool or dry air. Rest ??? Rest as much as you can. ??? Sleep with your head raised (elevated). ??? Make sure you get enough sleep each night. General instructions ??? Put a warm, moist washcloth on your face 3?4 times a day, or as often as told by your doctor. ??? Use nasal saline washes as often as told by your doctor. ??? Wash your hands often with soap and water. If you cannot use soap and water, use hand recharger. ??? Do not smoke. Avoid being around people who are smoking (secondhand smoke). ??? Keep all follow-up visits. Contact a doctor if: ??? You have a fever. ??? Your symptoms get worse. ??? Your symptoms do not get better within 10 days. Get help right away if: ??? You have a very bad headache. ??? You cannot stop vomiting. ??? You have very bad pain or swelling around your face or eyes. ??? You have trouble seeing. ??? You feel confused. ??? Your neck is stiff. ??? You have trouble breathing. These symptoms may be an emergency. Get help right away. Call 911. ??? Do not wait to see if the symptoms will go away. ??? Do not drive yourself to the hospital. Summary ??? A sinus infection is swelling of your sinuses. Sinuses are hollow spaces in the bones around your face. ??? This condition is caused by tissues in your nose that become inflamed or swollen. This traps germs. These can lead to infection. ??? If you were prescribed an antibiotic medicine, take it as told by your doctor. Do not stop taking it even if you start to feel better. ??? Keep all follow-up visits. This information is not intended to replace advice given to you by your health care provider. Make sure you discuss any questions you have with your health care provider. Document Revised: 02/09/2022 Document Reviewed: 02/09/2022 [employer]ut[employer] Patient Education ? 2023 AI Patents. AMBULATORY VISIT SUMMARY Observed: 07/05 3:20 PM Status: F Source: [facility] Ambulatory Visit Summary YANA PAYNE :2000 Visit Date:07/05/2024 Ambulatory Visit Instructions Your Diagnosis Acute sinusitis BMI 22.0-22.9, adult Your Care Team Attending Physician - Julienne BARTLETT, Ham Montano Primary Care Physician - Norberto BARTLETT, Ya Alexandre This Is Your Medications List amoxicillin-clavulanate (Augmentin 875 mg-125 mg Tab) levothyroxine (Synthroid 100 mcg Tab) Procedures Performed None. Discharge Vitals Heart Rate (Peripheral) 103 Blood Pressure 98/60 Height 166 cm Height 65 in Weight 61.2 kg Weight 134.923 lb BMI 22.21 What to do next Scheduled Follow-Up Appointments Tuesday 8:00 AM EDT With: Marta Rivas Where: [facility] [address], [place] [address]- Medications What How Much When Why Instructions New amoxicillin-clavulanate (Augmentin 875 mg-125 mg Tab) 1 Tablets By Mouth Every 12 hours Acute sinusitis Duration: 10 Days Pickup at [facility] Unchanged levothyroxine (Synthroid 100 mcg Tab) 1 Tablets By Mouth Every day Pharmacy Information [facility]: [address] [place], [place] [id number] [phone] Allergies No Known Allergies Problems Ongoing - [...] you for choosing us for your care. FAMILY MEDICINE OFFICE/CLINI C NOTE Observed: 07/05/2024 3:20 PM Status: F Source: [facility] Family Medicine Office/Clini c Note Chief Complaint possible sinus infection HPI [...] well nourished, in no acute distress Head: Normocephalic/atraumatic Eyes: Pupils equal, round, and reactive to [...] saline spray to moisten mucous membranes. Ordered: amoxicillin-clavulanate, 1 tab(s), Oral, q12hr for 10 day(s), 20 tab(s), Refill(s) 0, [facility], 166, cm, 07/05/24 15:34:00 EDT, Height/Length Dosing, 61.2, kg, 07/05/24 15:41:00 EDT, Weight Dosing 2. BMI 22.0-22.9, adult (Z68.22: Body mass index [BMI] 22.0-22.9, adult) continue healthy diet and exercise. Total time spent preparing the chart, conducting of the encounter with the patient and family and time spent documenting, reviewing, and ordering tests was 25 minutes. Follow-up With When Contact Information Julienne BARTLETT, CINDY Powell, MED [address] [facility], [address] [address] [phone] Additional Instructions: as scheduled with Marta Patient Education Sinus Infection, Adult, Qipo-gt-Rrsc How to Perform a Sinus Rinse, Ttim-so-Iobh Problem List/Past Medical History Ongoing Acute sinusitis [...] vaccine, inactivated - Not Given Patient Refuses diphtheria/pertussis, acel/tetanus adult 05/26/2021 Recorded meningococcal group B vaccine 10/21/2015 Recorded meningococcal group B vaccine 09/15/2015 Recorded meningococcal conjugate vaccine 09/15/2015 Recorded diphtheria/pertussis, acel/tetanus adult 06/22/2010 Recorded meningococcal conjugate vaccine 06/22/2010 Recorded poliovirus vaccine, inactivated 10/16/2003 Recorded measles/mumps/rubella virus vaccine 10/16/2003 Recorded DTaP, unspecified formulation 10/16/2003 Recorded DTaP, unspecified formulation 02/03/2000 Recorded varicella virus vaccine 01/26/1999 Recorded measles/mumps/rubella virus vaccine 01/26/1999 Recorded DTaP, unspecified formulation 1998 Recorded DTaP, unspecified formulation 1998 Recorded DTaP, unspecified formulation 1998 Recorded hepatitis B pediatric vaccine 1998 Recorded Result Comment: Electronical ly Signed By: Julienne BARTLETT, Ham Montano\.irvin\Date and Time Signed: 07/05/24 16:06 EDT FREE T4 Collected: 11:18 AM Status: F Source: [facility] TYPE CODE TESTS RESULT OUT OF RANGE REFERENCE UNITS LAB 3024-7(LOINC) THYROXINE.BALTAZAR E:MCNC:PT:SER /PLAS:QN: 0.82 Normal 0.58-1.64 ng/dL Performed By: #### [id number] # ### [facility] [address] [place] [address] TSH Collected: 11:18 AM Status: F Source: [facility] TYPE CODE TESTS RESULT OUT OF RANGE REFERENCE UNITS LAB 3016-3(LOINC) THYROTROPIN: ACNC:PT:SER/ PLAS:QN: 3.09 Normal 0.34-5.60 mcIU/mL Performed By: #### [id number] # ### [facility] [address] [place] [address] DNA EXTRACTION AND HOLD Collected: 04/22 11:50 AM Status: F Source: [facility] Order Comment: Release to [facility]->[facility] TYPE CODE TESTS RESULT OUT OF RANGE REFERENCE UNITS LAB [id number] Nucleic Acid Concentration 273.2 Unknown ng/uL LAB [id number] Total Volume DNA 300 Unknown ul LAB [id number] Nucleic Acid Purity 1.90 Unknown 1.70-2.10 NA LAB [id number] Total DNA Yield 82.0 Unknown ug LAB [id number] Method Gentra Puregene Reagents from [employer] Unknown LAB [id number] Storage and Special Instructions Unknown Result Comment: The extracte d DNA is stored in the [facility] at - 70 degrees C and is being held for future testing. If there are any questions regarding this sample, please contact the [facility] at [phone]. LAB Signature Signature . Unknown ALLERGIES DATE TYPE / CODE NAME / CODE REACTION SEVERITY SOURCE /[id number](SNOMED CT) No Known Allergies [facility] ENCOUNTERS ADMIT/DISCHARGE ACCOUNT NUMBER ADMITTING ENCOUNTER CLASS LOCATION SOURCE 09/17/2024/09/18/19 [id number] Ambulatory Building:[facility] 08/17/2024/08/18/19 [id number] Ambulatory Building:[facility] 08/17/2024/08/18/19 [id number] Ambulatory Building:[facility] EPIC 07/09/2024/07/10/19 [id number] [facility]ulatory [facility] [facility]: Exam 9 [facility] 07/05/2024/07/06/19 25 [id number] Ambulatory [facility] [facility]: Exam 3 [facility] 07/05/2024/07/06/19 [id number] Ambulatory [facility] [facility] 07/04/2024 [id number] Marta Almanzar [facility] 07/04/2024/07/05/19 [id number] Marta Almanzar Ambulatory [facility] 05/14/2024/05/14/19 [id number] Ambulatory Building:LAB [facility] 12/12/2023/12/12/19 [id number] Ambulatory Building:[facility] EPIC PAYERS ENCOUNTER GUARANTOR PAYER SUBSCRIBER SOURCE 09/17/2024 YANA LONDON: [place] [address]Aak: (HP) Primary Insurance:BCBSPolicy Number: [id number] e Date:2024-03-21 DARIEN MEYERSOB: [id number] [place] [address] [facility] EPIC 08/17/2024 YANA MEYERSOB: [place] [address]Jiy: (HP) Primary Insurance:BCBSPolicy Number: [id number] e Date:2024-03-21 DARIEN MEYERSOB: [id number] [place] [address] [facility] EPIC 08/17/2024 YANA MEYERSOB: [place] [address]Oqh: (HP) Primary Insurance:BCBSPolicy Number: [id number] e Date:2024-03-21 DARIEN Unger MIRAOB: [id number] [place] [address] [facility] 07/09/2024 YANA Jaimes MIRAOB: WEST STTel: ~~(4 1 (HP) Primary Insurance:AnthemPoli cy Number: [id number] e Date:[id number] [place] [id number]: [facility] 07/05/2024 YANALoreto MEYERSOB: THENDARA STTel: ~~(4 1 (HP) Primary Insurance:AnthemPoli cy Number: [id number] e Date:[id number] [address] [id number] [place] [id number]: DARIEN W [facility]24 YANA Jaimes MIRAOB: THENDARA STTel: ~~(4 [phone] (HP) Primary Insurance:MEDICAL MUTUALPolicy Number: [id number] e Date:[id number], [place] [address]GD: DARIEN Unger [facility]ALSANTIMILEY [facility] 07/04/2024 YANA Theodore LONDON: THENDARA STTel: ~~([phone] (HP) Primary Insurance:SELF PAYPolicy Number: Effective Date:2024-07-04 YANA Theodore PAYNEMILEY [facility] 07/04/2024 YANA Theodore [place]: [facility]: ~~(4 1 (HP) Primary Insurance:AnthemPoli cy Number: [id number] e Date:[id number] LUIS ALBERTO [id number] FORRESTER [address]JE: YANA ALVARENGA [facility] 05/14/2024 YANA MEYERSOB: [place], [place] [address]Cxu: (HP) Primary Insurance:MEDICAL [facility]3]Policy Number: [id number] e Date: DARIEN LONDON: [id number] [address] 12/12/2023 YANA [place]YERSOB: [place] [address]Flw: (HP) Primary Insurance:MEDICAL MUTUALPolicy Number: [id number] e Date:2023-03-21 LILO LUCAS: [id number] [place] [address] [facility] 12/12/2023 Secondary Insurance:MEDICAL MUTUALPolicy Number: [id number] e Date:2023-10-28 DARIEN LONDON: [id number] [place] [address] [facility]
--- OUTSIDE RECORDS SUMMARY | 2024-09-24 12:33 | XMS_ITS | Encounter Summary ---
Author Organization [employer]) Sys tem Address [id number] [address] [place] [address] Care Team Providers Care Wire Weaving Loom Setter Name Role Phone Carrillo White MD Primary Care Provider Encounter Details Date Type Department Care Team (Late st Contact Info) Description 01/26/2021 Telephone [facility] Phys[facility] [address] [place] [address] [address] [place] [address] No Pcp, [place] [address] Social History Tobacco Use Types Packs/Day Years Used Date Smoking Tobacco: Never Smokeless Tobacco: Never Alcohol Use Standard Drinks/Week Comments Not Currently 0 (1 standard drink = 0.6 oz pur e alcohol) Comments Yes Sex and Gender Information Value Date Recorded Sex Assigned at Not on file Legal Sex Female 10:50 AM EDT Gender Identity Not on file Sexual Orientation Not on file documented as of this encounter Plan of Treatment Upcoming Encounters Date Type Department Care Team (Late st Contact Info) Description 11/05/2024 11:30 AM EDT Appointment [facility] US Imaging [address] [place] [phone] 11/05/2024 1:00 PM EDT Office Visit Maternal- Medicine at [facility] [address] [place] [phone] Jacklyn Blakely MD [address] [facility], [address] [place] [address] documented as of this encounter Visit Diagnoses Not on filedocumented in this encounter Additional Health Concerns Infection Onset Date Last Indicated Resolved Time COVID-19 Positive Comment:Positive 02/07. No current symptoms. No isolation required per algorithm 03/04/2021 03/04/2021 03/05/2021 9:[address] documented as of this encounter Care Teams Wire Weaving Loom Setter Relationship Specialty Start Date End Date Carrillo White MD PCP - General Internal Medicine 04/07/21 documented as of this encounter
--- OUTSIDE RECORDS SUMMARY | 2024-09-24 12:33 | XMS_ITS | Encounter Summary ---
Author Organization [facility] Address [address] [facility] [address] Care Team Providers Care Gym Supervisor Name Role Phone Carrillo White MD Primary Care Provider [phone] Encounter Details Date Type Department Care Team (Late Contact Info) Description 09/11/2024 Telephone [facility] [address] [facility] [address] Santosh Marshall DO [address] [place] [address] Dr Isamar [place]man, [place] [address] Social History Tobacco Use Types Packs/Day Years [...] Department Care Team (Late Contact Info) Description 10/15/2024 9:50 AM EDT Routine [facility] [address] [place] [address] Erum Guidry PA [address] [place], [facility] 01/01/2025 2:00 PM EDT Office Visit [facility] OB [facility] [place] [address] Santosh Marshall, DO [address] [facility] [place] [address] Scheduled Orders Name Type Priority Associated Diagnoses Orde r Schedule Parvovirus B19 antibody, IgG and IgM Lab Routine Exposure to parvovirus Expected: 09/11/2024 (Approximate), Expires: 09/11/2025 documented as of this encounter Visit Diagnoses Diagnosis Exposure to parvovirus documented in this encounter Care Teams Gym Supervisor Relationship Specialty Start Date End Date Carrillo White MD [address] [place] [address] PCP - General Internal Medicine 11/29/22 documented as of this encounter
--- OUTSIDE RECORDS SUMMARY | 2024-09-24 12:33 | XMS_ITS | Encounter Summary ---
Author Organization [facility] Address [address] [place] [address] Care Team Providers Care Kennel Aide Name Role Phone Carrillo White MD Primary Care Provider [phone] Encounter Details Date Type Department Care Team ([facility] st Contact Info) Description 09/11/2024 Telephone [facility] [address] [facility] [place] [address] Brit Alamo MA [address] [place] [address] Social History Tobacco Use Types Packs/Day Years [...] child that has fifth disease at a green party on 09/08/2024. Pt stated that she did hug the shira sister at the green party but, not the exposed child. Pt [...] Description 10/15/2024 9:50 AM EDT Routine [facility] [address] [facility] [place] [address] Eurm Guidry PA [address] [facility] [address] [place], [facility] 01/01/2025 2:00 PM EDT Office Visit [facility] [address] [facility] [place] [address] Santosh Marshall, [address] [facility] [address] Isamar [place], [facility]11 documented as of this encounter Visit Diagnoses Diagnosis Parvovirus exposure documented in this encounter Care Teams Kennel Aide Relationship Specialty Start Date End Date Carrillo White MD [address] [place] [address] PCP - General Internal Medicine 11/29/22 documented as of this encounter
--- OUTSIDE RECORDS SUMMARY | 2024-09-24 12:33 | XMS_ITS | Encounter Summary ---
Author Organization [facility] Address [address] [place] [address] Care Team Providers Care Mulling Machine Operator Name Role Phone Carrillo White MD Primary Care Provider [phone] Encounter Details Date Type Department Care Team (Late Contact Info) Description 09/17/2024 Bamboo flowsheet [facility] OB [address] [place] [address] Santosh Marshall DO [address] [place] [address] Dr Isamar [place]man, [place] [address] Social History Tobacco Use Types Packs/Day Years [...] Description 10/15/2024 9:50 AM EDT Routine [facility] OB [address] [place] [address] Erum Guidry PA [facility] [address] [place], [place] [phone] 01/01/2025 2:00 PM EDT Office Visit [facility] OB [address] [place] [address] Santosh Marshall, DO [address] [facility] [place] [address] documented as of this encounter Visit Diagnoses Not on filedocumented in this encounter Care Teams Mulling Machine Operator Relationship Specialty Start Date End Date Carrillo White MD [address] [place] [address] PCP - General Internal Medicine 11/29/22 documented as of this encounter
--- OUTSIDE RECORDS SUMMARY | 2024-09-24 12:33 | XMS_ITS | Encounter Summary ---
Author Organization [facility] Address [id number] [address] [place] [address] Care Team Providers Care Shearing Shed Worker Name Role Phone Carrillo White MD Primary Care Provider [phone] Encounter Details Date Type Department Care Team (Late Contact Info) Description 12/22/2020 Orders Only Maternal- Medicine at [facility] [address] [place] [address] Santosh Marshall, DO [address] [place] [address] [place] [address] Social History Tobacco Use Types Packs/Day Years Used Date Smoking Tobacco: Never Assessed Comments Yes Sex and Gender Information Value Date Recorded Sex Assigned at Not on file Legal Sex Female 10:50 AM EDT Gender Identity Not on file Sexual Orientation Not on file COVID-19 Exposure Response Date Recorded In the last month, have you been in contact with someone who was confirmed or suspected to have Coronavirus / COVID-19? No / Unsure 12/23/2020 11:25 AM EDT documented as of this encounter Plan of Treatment Upcoming Encounters Date Type Department Care Team (Late Contact Info) Description 11/05/2024 11:30 AM EDT Appointment [facility] US Imaging [address] [place] [address] 11/05/2024 1:00 PM EDT Office Visit Maternal- Medicine at [facility] [address] [place] [address] Jacklyn Blakely MD [address], [address] [place] [address] documented as of this encounter Procedures Procedure Name Priority Date/Time Associated Diagnosis Comments FREE CELL DNA (NON-PRO MEDICA SEND OUT) Routine 12/14/2020 US OFFICE Routine 12/02/2020 documented in this encounter Results * Free Cell DNA (12/14/2020) us Santosh R Joanna DO LAB BLOOD ORDERABLES Final Resu lt MANUALLY TRANSCRIBED RESULTS * Ultrasound office (12/02/2020) Anatomical Region Laterality Modality AMB Ultrasound us Santosh R Joanna DO IMG US ORDERABLES Final Result documented in this encounter Visit Diagnoses Not on filedocumented in this encounter Additional Health Concerns Infection Onset Date Last Indicated Resolved Time COVID-19 Positive Comment:Positive 02/07. No current symptoms. No isolation required per algorithm 03/04/2021 03/04/2021 03/05/2021 9:[address] documented as of this encounter Care Teams Shearing Shed Worker Relationship Specialty Start Date End Date Carrillo White MD PCP - General Internal Medicine 04/07/21 documented as of this encounter
--- OUTSIDE RECORDS SUMMARY | 2024-09-24 12:33 | XMS_ITS | Encounter Summary ---
Author Organization [facility] tem Address [facility]-[id number] [address] [place] [address] Care Team Providers Care Offc Spec Name Role Phone Carrillo White MD Primary Care Provider [phone] Encounter Details Date Type Department Care Team (Late st Contact Info) Description 09/24/2024 Orders Only Maternal- Medicine at [facility] [address] [place] [address] Ref Prov, [place] [address] Social History Tobacco Use Types Packs/Day Years Used Date Smoking Tobacco: Never Smokeless Tobacco: Never Alcohol Use Standard Drinks/Week Comments Not Currently 0 (1 standard drink = 0.6 oz pur e alcohol) [place] Depression Scale Answer Date Recorded [place] Depression Scale Total 6 06/04/2021 The thought of harming myself has occurred to me . Never 06/04/2021 Estimated Date of Delivery Comme nts Yes [...] Info) Description 11/05/2024 11:30 AM EDT Appointment [facility] US Imaging [address] [place] [address] 11/05/2024 1:00 PM EDT Office Visit Maternal- Medicine at [facility] [address] [facility] [place] [address] Jacklyn Blakely MD [address] [facility] DON, [address] [place] [address] documented as of this encounter Procedures Procedure Name Priority Date/Time Associated Diagnosis Comments ULTRASOUND OFFICE Routine 08/17/2024 11:12 AM EDT documented in this encounter Results * Ultrasound - Office (08/17/2024 11:12 AM EDT) Anatomical Region Laterality Modality AMB Ultrasound us Not In System Ref Prov IMG US ORDERABLES Final R esult documented in this encounter Visit Diagnoses Not on filedocumented in this encounter Care Teams Offc Spec Relationship Specialty Start Date End Date Carrillo White MD PCP - General Internal Medicine 04/07/21 documented as of this encounter
--- OUTSIDE RECORDS SUMMARY | 2024-09-24 12:33 | XMS_ITS | Clinical Summary ---
Author Organization [facility] Address [address] [place] [address] Care Team Providers Care Morgue Librarian Name Role Phone Carrillo White MD Primary Care Provider [phone] Allergies No known active allergies Medications levothyroxine (Synthroid, Levoxyl) 100 MCG tablet Take 100 mcg by mouth Daily 5 Active levothyroxine (Synthroid) 25 MCG tabletIndication s:Thyroid disease Take 1 tablet (25 mcg) by mouth in the morning. Take before meals. 30 tablet 11 5 08/23/19 26 Active levothyroxine (Synthroid) 125 MCG tabletIndication s:Thyroid disease Take 1 tablet (125 mcg) by mouth in the morning. Take before meals. 30 tablet 11 5 09/18/19 26 Active magnesium oxide (Mag-Ox) 400 MG tabletIndication s:Nonintractable headache, unspecified chronicity pattern, unspecified headache type Take 1 tablet (400 mg) by mouth Daily 30 tablet 6 5 09/17/19 25 nitrofurantoin, macrocrystal-mon ohydrate, (Macrobid) 100 MG capsuleIndicatio ns:Urinary tract infection without hematuria, site unspecified Take 1 capsule (100 mg) by mouth in the morning and 1 capsule (100 mg) before bedtime. Do all this for 7 days. 14 capsule 5 09/19/19 25 Encounters Date Type Department Care Team Description 09/19/2024 Telephone [facility] [address] [place] [address] Santosh Marshall, DO 09/17/2024 10:50 AM EDT Routine [facility] [address] [place] [address] Santosh Marshall, DO 13 weeks gestation of ([facility]); Second trimester ([facility]); Thyroid disease ; History of prior with IUGR ; Diabetes mellitus screening 09/17/2024 Telephone [facility] [address] [place] [address] Aliya Jeronimo LPN 09/17/2024 Bamboo flowsheet [facility]OM[facility] [address] [place] [address] Santosh Marshall, DO 09/12/2024 Clinisync Result Encounter [facility] External Department Unsolicited Santosh Marshall, DO 09/11/2024 Telephone [facility] [address] [place] [address] Santosh Marshall, DO 09/11/2024 Telephone [facility] [address] [place] [address] Brit Alamo MA 09/11/2024 [address] [facility] [address] [place] [address] Brit Alamo MA 08/30/2024 Telephone [facility] [address] [place] [address] Ann Ma MA 08/28/2024 Abstract [facility] [address] [place] [address] Ann Ma MA 08/22/2024 Telephone [facility] [address] [place] [address] Santosh Marshall, DO 08/21/2024 Clinisync Result Encounter [facility] External Department Unsolicited Santosh Marshall, DO 08/17/2024 9:30 AM EDT Initial [facility] [address] [place], [place] [address] [place] [address] GA: 8w6d 08/17/2024 9:00 AM EDT Ancillary Procedure [facility] [address] [place], [place] [address] [place] [address] Missed menses from Last 3 Months Family [...] 12.8 oz) 025 11:10 AM EDT Height 165.1 cm (5' 5 ) 11/29/2022 3:23 PM EDT Body Mass Index 22.1 11/29/2022 3:23 PM EDT Plan of Treatment Upcoming Encounters Date Type Department Care Team (Late st Contact Info) Description 10/15/2024 9:50 AM EDT Routine [facility] OB [facility] [place] [address] Erum Guidry PA [address] [place] [address] [place] [address] 01/01/2025 2:00 PM EDT Office Visit [facility] OB [facility] [place] [address] JoannaSantosh, DO [address] [facility] [place] [address] Procedures Procedure Name Priority Date/Time Associated Diagnosis Comments ALL MISCELLANEOUS TEST Routine 4:33 PM EDT HBSAG SCREEN Routine 08/21/2024 11:01 AM EDT [...] EDT ALL CBC WITH AUTO DIFF Routine 11:01 AM EDT [facility] DRUG SCREEN RAPID (URINE) Routine 08/21/2024 10:38 AM EDT POCT URINALYSIS DIPSTICK Routine 08/17/2024 9:30 AM EDT Missed menses POCT , URINE Routine 08/17/2024 9:29 AM EDT Missed menses US OB TRANSVAGINAL Routine 08/17/2024 9: 27 AM EDT Missed menses from Last 3 Months Results * ALL MISCELLANEOUS TEST (09/12/2024 4:33 PM EDT) MISCELLANEOUS TEST COMMENT . [facility] Comment: Test Ordered: [id number] Parvovirus B19, Human, IgG/IgM Parvovirus B19, IgG 0.1 index Reference Range: 0.0-0.8 Negative <0.9 Equivocal 0.9 - 1.1 Positive >1.1 Parvovirus B19, IgM 0.1 index BN Reference Range: 0.0-0.8 Negative <0.9 Equivocal 0.9 - 1.1 Positive >1.1 Performed at: [facility] [id number] Oiler Helper: Darion Moon MD, Phone: [phone] Performed at: [address] [id number] Oiler Helper: Madi Maloney PhD, Phone: [phone] 09/12/2024 4:33 PM EDT 09/12/2024 4:34 PM EDT Narrative CLINISYNC - 09/18/2024 1:09 PM EDT [id number] Parvovirus B19 (Human), IgG, IgM Santosh Joanna DO CLINISYNC Final Result Performing Organization Address City/[facility] Co de Phone Number [facility] * BOX TEST (08/21/2024 11:01 AM EDT) BOX TEST SENT OUT UNITY BOX [facility] BOX1 UNITY [facility] BOX2 08/21/24 [facility] 08/21/2024 11:0 1 AM EDT 08/21/2024 11:09 AM EDT Narrative CLINISYNC - 08/21/2024 11:56 AM EDT UNITY BOX Santosh Joanna DO LAB BLOOD ORDERABLES Final Resul t CLINISYLA [facility] * HBSAG SCREEN (08/21/2024 11:01 AM EDT) HBSAG SCREEN Negative Negative [facility] Comment: Performed at: [address] [id number] Oiler Helper: Madi Maloney PhD, Phone: [phone] 08/21/2024 11:0 1 AM EDT 08/21/2024 11:04 AM EDT Narrative CLINISYNC - 08/22/2024 12:09 PM EDT Santosh Joanna DO LAB BLOOD ORDERABLES Final Resul t Performing Organization Address [facility] de Phone Number [facility] * RAPID PLASMA REAGIN, QUANT (08/21/2024 11:01 AM EDT) Pathologist [facility] RAPID PLASMA REAGIN, QUANT Non Reactive NonRea<1: [...] utilized, such as Treponema pallidum (Syphilis) Screening [place] ([id number]) or Rapid Plasma Reagin (RPR) Test With Reflex to Quantitative RPR and Confirmatory Treponema pallidum Antibodies ([id number]). Performed at: [address] [id number] Oiler Helper: Madi Maloney PhD, Phone: [phone] 08/21/2024 11:0 1 AM EDT 08/21/2024 11:04 AM EDT Narrative CLINISYNC - 08/22/2024 12:09 PM EDT us Santosh Joanna DO LAB BLOOD ORDERABLES Final Resul t Performing Organization Address [facility] Co de Phone Number [facility] * HIV AB/P24 AG WITH REFLEX (08/21/2024 11:01 AM EDT) [facility] HIV AB/P24 AG SCREEN Non Reactive Non Reactive [facility] Comment: HIV-1/HIV-2 antibodies and HIV-1 p24 antigen were NOT detected. There is no laboratory evidence of HIV infection. HIV Negative Performed at: [address] [id number] Oiler Helper: Madi Maloney PhD, Phone: [phone] 08/21/2024 11:0 1 AM EDT 08/21/2024 11:04 AM EDT Narrative CLINISYNC - 08/22/2024 6:08 AM EDT Wikibono DO LAB BLOOD ORDERABLES Final Resul t Performing Organization Address [facility] Co de Phone Number [facility] * HCV ANTIBODY RFX TO QUANT PCR (08/21/2024 11:01 AM EDT) [facility] HCV AB Non Reactive Non Reactive [facility] INTERPRETATION: Comment . [facility] Comment: Not infected with HCV unless early or acute infection is suspected (which may be delayed in an immunocompromised individual), or other evidence exists to indicate HCV infection. Performed at: [address] [id number] Oiler Helper: Madi Maloney PhD, Phone: [phone] 08/21/2024 11:0 1 AM EDT 08/21/2024 11:04 AM EDT Narrative CLINISYNC - 08/22/2024 7:08 AM EDT us Wikibono DO LAB BLOOD ORDERABLES Final Resul t Performing Organization Address City/[facility]/ZIP Co de Phone Number [facility] * MLR HEMOGLOBIN A1C (08/21/2024 11:01 AM EDT) [facility] GLYCOHEMOGLOBIN A1C 5.6 4.5 - 6.2 % [facility] Comment: ADA RECOMMENDED LIMIT 4.0 - 6.0 ADA THERAPEUTIC TARGET < 7.0 ACTION SUGGESTED > 7.0 ESTIMATED AVERAGE GLUCOSE 114 mg/dL [facility] 08/21/2024 11:0 1 AM EDT 08/21/2024 11:04 AM EDT Narrative CLINISYNC - 08/21/2024 1:05 PM EDT Santosh Joanna DO CLINISYNC Final Result Performing Organization Address [facility]/ZIP Co de Phone Number [facility] * ALL TYPE AND SCREEN (08/21/2024 11:01 AM EDT) BLOOD TYPE A Positive [facility] ANTIBODY SCREEN NEGATIVE [facility] 08/21/2024 11:0 1 AM EDT 08/21/2024 11:04 AM EDT Narrative CLINISYNC - 08/21/2024 12:03 PM EDT [facility] , Santosh Joanna DO CLINISYNC Final Result Performing Organization Address [facility] Co de Phone Number [facility] * (ABNORMAL) ALL THYROID STIM HORMONE (08/21/2024 11:01 AM EDT) THYROID STIMULATING HORMONE 7.721(H) 0.358 - 3.740 uIU/mL TB 08/21/2024 11:0 1 AM EDT 08/21/2024 11:04 AM EDT Narrative CLINISYNC - 08/21/2024 1:06 PM EDT Santosh Joanna DO CLINISYNC Final Result Performing Organization Address [facility] Co de Phone Number [facility] * ALL RUBELLA IGG AB (08/21/2024 11:01 AM EDT) RUBELLA ANTIBODIES, IGG 2.13 Immune >0.99 index [facility] Comment: Non-immune <0.90 Equivocal 0.90 - 0.99 Immune >0.99 Performed at: [address] [id number] Oiler Helper: Madi Maloney PhD, Phone: [phone] 08/21/2024 11:0 1 AM EDT 08/21/2024 11:04 AM EDT Narrative CLINISYNC - 08/22/2024 7:08 AM EDT us Santosh Marshall DO CLINISYNC Final Result CLINIS[facility]NC [facility] * (ABNORMAL) ALL CBC WITH AUTO DIFF (08/21/2024 11:01 AM EDT) Pathologist [facility] TB WBC 7.8 4.0 - 11.0 10 3/uL [...] Narrative CLINISYNC - 08/21/2024 11:10 AM EDT [facility] Joanna DO CLINISYNC Final Result [facility] * [facility] DRUG SCREEN RAPID (URINE) (08/21/2024 10:38 AM [...] CLINISYNC - 08/21/2024 11:25 AM EDT Santosh Robisonzio DO CLINISYNC Final Result [facility] * POCT urinalysis dipstick manually resulted (08/17/2024 [...] - 9 Protein, UA Negative Negative - 1999(20) ++++ mg/dL Urobilinogen, UA 0.2 0.2 - [...] MD, PHD at 20-Aug-2024 10:22:40 AM [facility] Procedure Note Clay Carlin MD - [...] signed by CLAY CARLIN II, MD, PHD [id number] 10:22:40 AM [facility] us Santosh Joanna DO IMG OB US PROCEDURES Final Resul t from Last 3 Months Insurance BS Care Teams Morgue Librarian Relationship Specialty Start Date End Date Carrillo White MD [address] [place] [address] PCP - General Internal Medicine 11/29/22
--- OUTSIDE RECORDS SUMMARY | 2024-09-24 12:33 | XMS_ITS | Encounter Summary ---
Author Organization [facility] Address [address] [place] [place] [address] Care Team Providers Care Clinical Tech Name Role Phone Carrillo White MD Primary Care Provider [phone] Encounter Details Date Type Department Care Team ([facility] Contact Info) Description 12/19/2023 Orders Only [facility] [address] [place] [address] Carmita Tapia LPN 102 [facility] [place] [place] [address] Social History Tobacco Use Types Packs/Day Years [...] AM EDT Routine [facility] [address] [place] [address] Erum Guidry PA [address] [place] [address] 01/01/2025 2:00 PM EDT Office Visit [facility] [address] [place] [address] Santosh Marshall DO [address] [place] [address] [place] [address] documented as of this encounter Procedures Procedure Name Priority Date/Time Associated Diagnosis Comments PAP SMEAR Routine 12/12/2023 12:00 AM EDT documented in this encounter Results * Pap Smear (12/12/2023 12:00 AM EDT) Swab Cervical swab / Unknown Joanna Nurse [facility] Ob LAB CYTOLOGY ORDERABLES Final Result EXTERNAL LAB documented in this encounter Visit Diagnoses Not on filedocumented in this encounter Care Teams Clinical Tech Relationship Specialty Start Date End Date Carrillo White MD [address] [place] [address] PCP - General Internal Medicine 11/29/22 documented as of this encounter
--- OUTSIDE RECORDS SUMMARY | 2024-09-24 12:33 | XMS_ITS | Encounter Summary ---
Author Organization [facility] Address [address] [place] [address] Care Team Providers Care Coke Oven Patcher Name Role Phone Carrillo White MD Primary Care Provider [phone] Encounter Details Date Type Department Care Team (Late Contact Info) Description 09/11/2024 Telephone [facility] [address] [facility] [place] [address] Brit Al[place] MA [address] [place] [address] [place] [address] Social History Tobacco Use Types Packs/Day Years [...] AM EDT Routine [facility] [address] [facility] [place] [place] [address] Erum Guidry PA [address] [facility] [place] [address] 01/01/2025 2:00 PM EDT Office Visit [facility] OB [address] [facility] [place] [address] Snatosh Marshall DO [address] [facility] [place] [address] documented as of this encounter Visit Diagnoses Diagnosis Urinary tract infection without hematuria, site unspecified documented in this encounter Care Teams Coke Oven Patcher Relationship Specialty Start Date End Date Carrillo Whtie MD [address] [place] [address] PCP - General Internal Medicine 11/29/22 documented as of this encounter
--- OUTSIDE RECORDS SUMMARY | 2024-09-24 12:33 | XMS_ITS | Encounter Summary ---
Author Organization [facility] Address [address] [place] [address] Care Team Providers Care Assistant Housekeeping Manager Name Role Phone Carrillo White MD Primary Care Provider [phone] Encounter Details Date Type Department Care Team (Late Contact Info) Description 09/12/2024 Clinisync Result Encounter N[facility] External Department Unsolicited Santosh Marshall DO 102 [address] [place], [facility]11 Social History Tobacco Use Types Packs/Day Years [...] Routine [facility] OB [address] [place] [address] Erum Guidry PA [address] [place], [place] [id number] 01/01/2025 2:00 PM EDT Office Visit [facility] OB [address] [place] [address] Santosh Marshall DO [address] [place] [address] [place] [address] documented as of this encounter Procedures Procedure Name Priority Date/Time Associated Diagnosis Comments ALL MISCELLANEOUS TEST Routine 4:33 PM EDT documented in this encounter Results * ALL MISCELLANEOUS TEST (09/12/2024 4:33 PM EDT) Pathologist [facility] MISCELLANEOUS TEST COMMENT . [facility] Comment: Test Ordered: [id number] Parvovirus B19, Human, IgG/IgM Parvovirus B19, IgG 0.1 index Reference Range: 0.0-0.8 Negative <0.9 Equivocal 0.9 - 1.1 Positive >1.1 Parvovirus B19, IgM 0.1 index BN Reference Range: 0.0-0.8 Negative <0.9 Equivocal 0.9 - 1.1 Positive >1.1 Performed at: - [facility] [id number] Teachers Aide: Darion Moon MD, Phone: [phone] Performed at: [facility] [address] [id number] Teachers Aide: Madi Maloney PhD, Phone: [phone] 09/12/2024 4:33 PM EDT 09/12/2024 4:34 PM EDT Narrative [facility] - 09/18/2024 1:09 PM EDT [id number] Parvovirus B19 (Human), IgG, IgM Santosh Marshall DO [facility] Final Result [facility] documented in this encounter Visit Diagnoses Not on filedocumented in this encounter Care Teams Assistant Housekeeping Manager Relationship Specialty Start Date End Date Carrillo White MD [address] [place] [address] PCP - General Internal Medicine 11/29/22 documented as of this encounter
--- OUTSIDE RECORDS SUMMARY | 2024-09-24 12:33 | XMS_ITS | Encounter Summary ---
Author Organization [facility] Address [address] [place] [address] Care Team Providers Care Stucco Applicator Name Role Phone Carrillo White MD Primary Care Provider [phone] Encounter Details Date Type Department Care Team (Late Contact Info) Description 08/28/2024 Abstract [facility] OB [address] [place] [address] Ann Ma MA Social History Tobacco [...] Routine [facility] B[facility] OB [address] [place] [address] Erum Guidry PA [facility] [address] [place], [facility]11 01/01/2025 2:00 PM EDT Office Visit [facility] OB [address] [place] [address] Santosh Marshall DO [address] [place] [address] documented as of this encounter Visit Diagnoses Not on filedocumented in this encounter Care Teams Stucco Applicator Relationship Specialty Start Date End Date Carrillo White MD [address] [place] [address] PCP - General Internal Medicine 11/29/22 documented as of this encounter
--- OUTSIDE RECORDS SUMMARY | 2024-09-24 12:33 | XMS_ITS | Encounter Summary ---
Author Organization [facility] Address [address] [place] [address] Care Team Providers Care Cane Splicer Name Role Phone Carrillo White MD Primary Care Provider [phone] Encounter Details Date Type Department Care Team ([facility] Contact Info) Description 09/19/2024 Telephone [facility] OB [address] [place] [address] Santosh Marshall, DO [address] Isamar [place], [facility]11 Social History Tobacco Use Types Packs/Day Years [...] encounter Miscellaneous Notes * Telephone Encounter - Carmita Tapia LPN - 09/19/2024 4:07 PM EDT Patient was called detailed message was left for the patient to repeat labs in 1 week and that these levels were 0.1 and he would like to repeat again. Patient was advised these were sent to [facility]. documented in this encounter Plan of Treatment Upcoming Encounters Date Type Department Care Team ([facility] Contact Info) Description 10/15/2024 9:50 AM EDT Routine [facility] OB [address] [facility] [place] [address] Erum Guidry PA [address] [facility] [address] [place], [place] [id number] 01/01/2025 2:00 PM EDT Office Visit [facility] OB [address] [facility] [place] [address] Santosh Marshall DO [address] [facility] [place] [address] Scheduled Orders Name Type Priority Associated Diagnoses Orde r Schedule Parvovirus B19 antibody, IgG and IgM Lab Routine Parvovirus exposure Expected: 09/19/2024 (Approximate), Expires: 09/19/2025 documented as of this encounter Visit Diagnoses Diagnosis Parvovirus exposure documented in this encounter Care Teams Cane Splicer Relationship Specialty Start Date End Date Carrillo White MD [address] [place] [address] PCP - General Internal Medicine 11/29/22 documented as of this encounter
--- OUTSIDE RECORDS SUMMARY | 2024-09-24 12:33 | XMS_ITS | Encounter Summary ---
Author Organization [facility] Address [id number] [address] [place] [address] Care Team Providers Care Surgery Nurse Name Role Phone Carrillo White MD Primary Care Provider [phone] Reason for Referral * Diagnostic Imaging (Routine) - Pending Review Specialty Diagnoses / Procedures Referred By Contac t Referred To Contact Maternal and Medicine Diagnoses Thyroid disease affecting History of prior with IUGR Procedures US [facility] with or without consult Santosh Marshall DO [address] [place] [address] [place] [address] Phone: tel: fax: Maternal- Medicine at [facility] [address] [place] [address] Phone: tel: fax: Referral ID Status Reason Start Date Expiration Date V isits Requested Visits Authorized [id number] Pending Review 09/20/2024 09/20/2025 1 1 Encounter Details Date Type Department Care Team (Late st Contact Info) Description 09/20/2024 Orders Only Maternal- Medicine at [facility] [address] [place] [address] Irene Gutierrez RN Thyroid disease affecting (Primary Dx); History of prior with IUGR Social History Tobacco Use Types Packs/Day Years Used Date Smoking Tobacco: Never Assessed [place] Depression Scale Answer Date Recorded [place] Depression Scale Total 6 06/04/2021 The thought of harming myself has occurred to me . Never 06/04/2021 Comments No Sex and Gender Information Value Date Recorded Sex Assigned at Not on file Legal Sex Female 10:50 AM EDT Gender Identity Not on file Sexual Orientation Not on file documented as of this encounter Plan of Treatment Upcoming Encounters Date Type Department Care Team (Late st Contact Info) Description 11/05/2024 11:30 AM EDT Appointment [facility] - [facility] US Imaging [address] [place] [address] 11/05/2024 1:00 PM EDT Office Visit Maternal- Medicine at [facility] [address] [place] [address] Jacklyn Blakely MD [address] [facility], [address] [place] [address] Scheduled Orders Name Type Priority Associated Diagnoses Orde r Schedule US [facility] with or without consult Imaging Routine Thyroid disease affecting History of prior with IUGR Expected: 10/21/2024 (Approximate), Expires: 09/20/2025 documented as of this encounter Visit Diagnoses Diagnosis Thyroid disease affecting - Primary History of prior with IUGR documented in this encounter Care Teams Surgery Nurse Relationship Specialty Start Date End Date Carrillo White MD PCP - General Internal Medicine 04/07/21 documented as of this encounter
--- OUTSIDE RECORDS SUMMARY | 2024-09-24 12:33 | XMS_ITS | Encounter Summary ---
Author Organization [facility] tem Address [id number] [address] [place] [address] Care Team Providers Care Janitor Caretaker Name Role Phone Carrillo White MD Primary Care Provider [phone] Encounter Details Date Type Department Care Team (Late Contact Info) Description 09/24/2024 Abstract Maternal- Medicine at [facility] [address] [place] [address] Jacklyn Blakely MD [address] [address] Social History Tobacco Use Types Packs/Day Years Used Date Smoking Tobacco: Never Smokeless Tobacco: Never Alcohol Use Standard Drinks/Week Comments Not Currently 0 (1 standard drink = 0.6 oz pur e alcohol) [place] Depression Scale Answer Date Recorded [place] Depression Scale Total 6 06/04/2021 The thought [...] Info) Description 11/05/2024 11:30 AM EDT Appointment [facility] US Imaging [address] [place] [address] 11/05/2024 1:00 PM EDT Office Visit Maternal- Medicine at [facility] [address] [place] [address] Jacklyn Blakely MD [address] [facility], [facility] [address] documented as of this encounter Procedures Procedure Name Priority Date/Time Associated Diagnosis Comments HIV 1&2 AB/AG SCREEN (P24 AG) Routine 08/21/2024 RUBELLA IGG IMMUNE STATUS Routine 08/21/2024 SYPHILIS TOTAL(UNKNOWN SYPHILIS STATUS) Routine 08/21/2024 HEPATITIS C(HCV) ANTIBODY W/REFLEX TO PCR Routine 08/21/2024 DRUG SCREEN, URINE Routine 08/21/2024 HEPATITIS B SURFACE ANTIGEN Routine 08/21/2024 CBC AND DIFFERENTIAL Routine 08/21/2024 TYPE AND SCREEN Routine 08/21/2024 TSH Routine 08/21/2024 HEMOGLOBIN A1C Routine 08/21/2024 documented in this encounter Results * CBC and differential (08/21/2024) Hemoglobin 13.7 12.0 - 16.0 g/dL MANUALLY TRANSCRIBED RESULTS Hematocrit 39 36 - 46 % MANUALLY TRANSCRIBED RESULTS Platelets 211 150 - 399 10*3/uL MANUALLY TRANSCRIBED RESULTS Auto WBC 7.8 3.3 - 10.0 10*3/mL MANUALLY TRANSCRIBED RESULTS Blood us Santosh R Joanna DO LAB BLOOD ORDERABLES Final Resu lt MANUALLY TRANSCRIBED RESULTS * Type and screen (08/21/2024) Abo/Rh(D) A Positive MANUALLY TRANSCRIBED RESULTS Antibody Screen negative MANUALLY TRANSCRIBED RESULTS Blood Venous blood / Unknown us Not In System Ref Prov BLOOD BANK TEST ORDERABLE S Final Result Performing Organization Address City/[facility] Co de Phone Number MANUALLY TRANSCRIBED RESULTS * Hemoglobin A1c (08/21/2024) Hemoglobin A1C 5.6 4.0 - 6.0 % MANUALLY TRANSCRIBED RESULTS Blood Venous blood / Unknown us Santosh R Joanna DO LAB BLOOD ORDERABLES Final Resu lt Performing Organization Address [facility] Co de Phone Number MANUALLY TRANSCRIBED RESULTS * TSH (08/21/2024) Thyroid Stimulating (3Rd Generation) Hormone/ Tsh 7.721 MANUALLY TRANSCRIBED RESULTS Blood Venous blood / Unknown us Not In System Ref Prov LAB BLOOD ORDERABLES Whit l Result Performing Organization Address City/[facility] Co de Phone Number MANUALLY TRANSCRIBED RESULTS * Hepatitis B surface antigen (08/21/2024) Hepatitis B Surface Antigen negative MANUALLY TRANSCRIBED RESULTS Blood Venous blood / Unknown us Not In System Ref Prov LAB BLOOD ORDERABLES Whit l Result Performing Organization Address City/[facility] Co de Phone Number MANUALLY TRANSCRIBED RESULTS * Hepatitis C(HCV) Ab w/ Reflex to PCR (08/21/2024) Hepatitis C Antibody non-reacti ve MANUALLY TRANSCRIBED RESULTS Blood Venous blood / Unknown us Not In System Ref Prov LAB BLOOD ORDERABLES Whit l Result MANUALLY TRANSCRIBED RESULTS * Drug Screen, Urine (08/21/2024) Methadone negative MANUALLY TRANSCRIBED RESULTS Opiates negative MANUALLY TRANSCRIBED RESULTS Amphetamine/Methamp hetamine negative MANUALLY TRANSCRIBED RESULTS Cocaine Metabolite negative M ANUALLY TRANSCRIBED RESULTS Phencyclidine negative MANUAL LY TRANSCRIBED RESULTS Thc Marijuana, Urine negative MANUALLY TRANSCRIBED RESULTS Oxycodone negative MANUALLY TRANSCRIBED RESULTS Barbiturates negative MANUALL Y TRANSCRIBED RESULTS Benzodiazepines negative MANU ALLY TRANSCRIBED RESULTS Urine us Not In System Ref Prov URINE ORDERABLES Final Re sult Performing Organization Address City/[facility]/ZIP Co de Phone Number MANUALLY TRANSCRIBED RESULTS * HIV 1&2 AB/AG Screen (P24 AG) (08/21/2024) HIV 1&2 AB/AG non-reacti ve MANUALLY TRANSCRIBED RESULTS Blood Venous blood / Unknown us Not In System Ref Prov LAB BLOOD ORDERABLES Whit l Result MANUALLY TRANSCRIBED RESULTS * Rubella IGG immune status (08/21/2024) Rubella immune IgG immune MANUALLY TRANSCRIBED RESULTS Blood Venous blood / Unknown us Not In System Ref Prov LAB BLOOD ORDERABLES Whit l Result MANUALLY TRANSCRIBED RESULTS * Syphilis Total (Unknown Syphilis Status) (08/21/2024) Syphilis non-reacti ve MANUALLY TRANSCRIBED RESULTS Blood Venous blood / Unknown us Not In System Ref Prov LAB BLOOD ORDERABLES Whit l Result MANUALLY TRANSCRIBED RESULTS documented in this encounter Visit Diagnoses Not on filedocumented in this encounter Care Teams Janitor Caretaker Relationship Specialty Start Date End Date Carrillo White MD PCP - General Internal Medicine 04/07/21 documented as of this encounter
--- OUTSIDE RECORDS SUMMARY | 2024-09-24 12:33 | XMS_ITS | Encounter Summary ---
Author Organization [facility] Address [id number] [address] [place] [address] Care Team Providers Care Professor Of Vegetable Science Name Role Phone Carrillo White MD Primary Care Provider [phone] Encounter Details Date Type Department Care Team (Late Contact Info) Description 05/25/2021 Orders Only Maternal- Medicine at [facility] [address] [place] [phone] Yessica Sinha CMA Social History Tobacco Use Types Packs/Day Years [...] have Coronavirus / COVID-19? No / Unsure 05/26/2021 1:38 PM EST documented as of this encounter Plan of Treatment Upcoming Encounters Date Type Department Care Team (Late Contact Info) Description 11/05/2024 11:30 AM EDT Appointment [facility] US Imaging [address] [place] [address] 11/05/2024 1:00 PM EDT Office Visit Maternal- Medicine at [facility] [address] [place] [address] Jacklyn Blakely MD [address], [address] [place] [address] documented as of this encounter Visit Diagnoses Not on filedocumented in this encounter Care Teams Professor Of Vegetable Science Relationship Specialty Start Date End Date Carrillo White MD PCP - General Internal Medicine 04/07/21 documented as of this encounter
--- OUTSIDE RECORDS SUMMARY | 2024-09-24 12:33 | XMS_ITS | Clinical Summary ---
Author Organization [employer] tem Address [facility] [place]-[id number] [address] [place] [address] Care Team Providers Care Print Developer Name Role Phone Carrillo White MD Primary Care Provider [phone] Allergies No known active allergies Medications PNV no.95/ferrous fum/folic ac ( ORAL) Take by mouth daily. Active progesterone (FIRST-PROGESTER ONE VGS) 200 mg suppositoryIndic ations:Hypothyro id in , antepartum, second trimester,Intrau terine growth restriction affecting care of mother, unspecified trimester, not applicable or unspecified fetus,Cervical shortening affecting in second trimester,Intrau terine growth restriction (IUGR) affecting care of mother, second trimester, single gestation,Encoun ter for other screening follow-up Insert 1 suppository (200 mg total) into the vagina nightly. 30 each 2 Active Additional Information Patient not taking.Reported on 06/04/2021 FREESTYLE LITE METER kit See Admin Instructions. 2 Active freestyle 28 gauge lancets Use daily as directed & as needed 2 Active acetaminophen (TYLENOL EXTRA STRENGTH) 500 mg tablet Take 2 tablets (1,000 mg total) by mouth every 8 (eight) hours as needed for pain. 30 tablet 2 Active Additional Information Patient not taking.Reported on 06/04/2021 docusate sodium (COLACE) 100 mg capsule Take 1 capsule (100 mg total) by mouth in the morning and 1 capsule (100 mg total) before bedtime. 10 capsule 2 Active Additional Information Patient not taking.Reported on 06/04/2021 ibuprofen (ADVIL,MOTRIN) 800 mg tablet Take 1 tablet (800 mg total) by mouth every 8 (eight) hours as needed (cramping). 30 tablet 2 Active Additional Information Patient not taking.Reported on 06/04/2021 levothyroxine (SYNTHROID, LEVOTHROID) 100 MCG tablet Take 1 tablet (100 mcg total) by mouth in the morning. Active magnesium oxide (MAGOX) 400 mg tablet Take 1 tablet (400 mg total) by mouth in the morning. Active aspirin 81 mg Take 1 tablet (81 mg total) by mouth in the morning. Active Active Problems Problem Noted Date Diagnosed Date premature rupture of membranes Diet controlled gestational diabetes mellitus (GDM) in third trimester 05/19/2021 Short cervix during in third trimester 05/19/2021 Overview (05/19/2021): Vaginal progesterone ANCS 03/03/21 and 03/04/21, rescue 05/12/21 and 05/13/21. labor 05/12/2021 uterine contractions in third trimester, antepartum 04/21/2021 Hypothyroidism affecting 03/07/2021 Overview (05/19/2021): 03/03/21 TSH 1.91 04/11 TSH not completed () On levothyroxine 125mcg affected by growth restriction 1 05/04/2020 Overview (05/19/2021): 05/05/21: EFW 3%, AC 8%, nl DVP. Normal dopplers Estimated Date of Delivery Comme nts Yes 03/23/2025 Based on last me nstrual period of 06/16/2024 Encounters Date Type Department Care Team Description 09/24/2024 Orders Only Maternal- Medicine at [facility] [address] [place] [address] Ref Prov, Not In System 09/24/2024 Abstract Maternal- Medicine at [facility] [address] [facility] [place] [id number] Jacklyn Blakely MD 09/20/2024 Orders Only Maternal- Medicine at [facility] [address] [facility] [place] [id number] Irene Gutierrez RN Thyroid disease affecting (Primary Dx); History of prior with IUGR from Last 3 Months Immunizations Immunization Administration Dates Next Due Tdap 05/26/2021 Family History Medical History Relation Name Comments Diabetes Brother Oswaldo Cancer Father Diabetes Father Hypertension Father Mental illness Father Colon cancer Maternal Grandmother Yanet Diabetes Maternal Grandmother Yanet Hypertension Maternal Grandmother Yanet Depression Mother Anahi Diabetes Mother Anahi Mental illness Mother Anahi Stomach cancer Mother Anahi Breast cancer Paternal Aunt 1 Catherine Miscarriages / Stillbirths Paternal Aunt 2 Aunt Asthma Paternal Grandfather Mook Diabetes Paternal Grandfather Mook Hypertension Paternal Grandfather Mook Breast cancer Paternal Grandmother Chio Colon cancer Paternal Grandmother Chio Relation Name Status Comments Brother Oswaldo Father Maternal Grandmother Yanet Mother Anahi Paternal Aunt 1 Catherine Paternal Aunt 2 Aunt Paternal Grandfather Mook Paternal Grandmother Chio Social History Tobacco Use Types Packs/Day Years Used Date Smoking Tobacco: Never Smokeless Tobacco: Never Alcohol Use Standard Drinks/Week Comments Not Currently 0 (1 standard drink = 0.6 oz pur e alcohol) [place] Depression Scale Answer Date Recorded [place] Depression Scale Total 6 06/04/2021 The thought [...] Sign Reading Time Taken Comments Blood Pressure 114/76 06/04/2021 11:19 AM EDT Pulse 83 06/01/2021 9:10 AM EDT Temperature 36.9 C (98.4 F) 06/04/2021 11:19 AM EDT Respiratory Rate 17 06/01/2021 9:10 AM EDT Oxygen Saturation 97% 05/19/2021 10: 27 AM EST Inhaled Oxygen Concentration - - Weight 62.6 kg (137 lb 14.4 oz) 022 11:19 AM EDT Height 165.1 cm (5' 5 ) 06/04/2021 11:1 9 AM EDT Body Mass Index 22.95 06/04/2021 11:19 AM EDT Plan of Treatment Upcoming Encounters Date Type Department Care Team (Late st Contact Info) Description 11/05/2024 11:30 AM EDT Appointment [facility] Imaging [address] [place] [address] 11/05/2024 1:00 PM EDT Office Visit Maternal- Medicine at [facility] [address] [place] [address] Jacklyn Blakely MD [address] [facility], [address] [place] [address] Health Maintenance Due Date Last Done Comments Tobacco Screening 2010 Adult BMI Screening 01/16/2016 Pap Smear 2019 Depression Screening 06/04/2022 06/04/2021 Influenza Vaccine 11/19/2024 01/30/2009 DTaP,Tdap and Td Vaccines (8 - Td or Tdap) 05/27/2031 05/26/2021, 06/22/2010, 10/16/2003, Additional history exists Medical Devices Not on file Procedures Procedure Name Priority Date/Time Associated Diagnosis Comments TYPE AND SCREEN Routine 08/21/2024 CBC AND DIFFERENTIAL Routine 08/21/2024 HEMOGLOBIN A1C Routine 08/21/2024 TSH Routine 08/21/2024 HEPATITIS B SURFACE ANTIGEN Routine 08/21/2024 HEPATITIS C(HCV) ANTIBODY W/REFLEX TO PCR Routine 08/21/2024 DRUG SCREEN, URINE Routine 08/21/2024 HIV 1&2 AB/AG SCREEN (P24 AG) Routine 08/21/2024 RUBELLA IGG IMMUNE STATUS Routine 08/21/2024 SYPHILIS TOTAL(UNKNOWN SYPHILIS STATUS) Routine 08/21/2024 ULTRASOUND OFFICE Routine 08/17/2024 11: 12 AM EDT from Last 3 Months Results * HIV 1&2 AB/AG Screen (P24 AG) [...] Whit l Result MANUALLY TRANSCRIBED RESULTS * Hepatitis C(HCV) Ab w/ Reflex to PCR (08/21/2024) Hepatitis C Antibody non-reacti ve MANUALLY TRANSCRIBED RESULTS Blood Venous blood / Unknown us Not In System Ref Prov LAB BLOOD ORDERABLES Whit l Result Performing Organization Address [facility] Co de Phone Number MANUALLY TRANSCRIBED RESULTS * Drug Screen, Urine [...] ORDERABLES Final Re sult Performing Organization Address [facility] de Phone Number MANUALLY TRANSCRIBED RESULTS * Hepatitis B surface antigen (08/21/2024) Hepatitis B Surface Antigen negative MANUALLY TRANSCRIBED RESULTS Blood Venous blood / Unknown us Not In System Ref Prov LAB BLOOD ORDERABLES Whit l Result Performing Organization Address [facility] de Phone Number MANUALLY TRANSCRIBED RESULTS * CBC and differential (08/21/2024) Hemoglobin 13.7 12.0 - 16.0 g/dL MANUALLY TRANSCRIBED RESULTS Hematocrit 39 36 - 46 % MANUALLY TRANSCRIBED RESULTS Platelets 211 150 - 399 10*3/uL MANUALLY TRANSCRIBED RESULTS Auto WBC 7.8 3.3 - 10.0 10*3/mL MANUALLY TRANSCRIBED RESULTS Blood us Santosh R Joanna DO LAB BLOOD ORDERABLES Final Resu lt Performing Organization Address [facility] Co de Phone Number MANUALLY TRANSCRIBED RESULTS * Type and screen (08/21/2024) Abo/Rh(D) A Positive MANUALLY TRANSCRIBED RESULTS Antibody Screen negative MANUALLY TRANSCRIBED RESULTS Blood Venous blood / Unknown us Not In System Ref Prov BLOOD BANK TEST ORDERABLE S Final Result MANUALLY TRANSCRIBED RESULTS * TSH (08/21/2024) Thyroid Stimulating (3Rd Generation) Hormone/ Tsh 7.721 MANUALLY TRANSCRIBED RESULTS Blood Venous blood / Unknown us Not In System Ref Prov LAB BLOOD ORDERABLES Whit l Result Performing Organization Address City/[facility]/ZIP Co de Phone Number MANUALLY TRANSCRIBED RESULTS * Hemoglobin A1c (08/21/2024) Hemoglobin A1C 5.6 4.0 - 6.0 % MANUALLY TRANSCRIBED RESULTS Blood Venous blood / Unknown us Santosh R Joanna DO LAB BLOOD ORDERABLES Final Resu lt Performing Organization Address [facility]/ZIP Co de Phone Number MANUALLY TRANSCRIBED RESULTS * Ultrasound - Office (08/17/2024 11:12 AM EDT) Anatomical Region Laterality Modality AMB Ultrasound us Not In System Ref Prov IMG US ORDERABLES Final R esult from Last 3 Months Insurance [employer] ANTHEM Advance Directives * Full Code (Latest Code Status on File) Date Activated Date Inactivated Comments 05/30/2021 7:15 AM 06/01/2021 2:55 PM * Full Code Date Activated Date Inactivated Comments 05/12/2021 1:10 PM 05/15/2021 2:16 PM * Full Code Date Activated Date Inactivated Comments 04/21/2021 7:00 PM 04/22/2021 1:57 PM * Full Code Date Activated Date Inactivated Comments 03/03/2021 5:01 PM 03/26/2021 7:46 PM Care Teams Print Developer Relationship Specialty Start Date End Date Carrillo White MD PCP - General Internal Medicine 04/07/21
--- OUTSIDE RECORDS SUMMARY | 2024-09-24 12:33 | XMS_ITS | Encounter Summary ---
Author Organization [facility] Address [address] [facility] [place] [address] Care Team Providers Care Data Architect Name Role Phone Carrillo White MD Primary Care Provider [phone] Encounter Details Date Type Department Care Team ([facility] Contact Info) Description 09/17/2024 Telephone [facility] [address] [place] [address] Aliya Jeronimo LPN Social History Tobacco Use Types Packs/Day Years [...] encounter Miscellaneous Notes * Telephone Encounter - Aliya Jeronimo LPN - 09/17/2024 12:06 PM EDT Please refer to [facility] for thyroid disease and h/o IUGR documented in this encounter Plan of Treatment Upcoming Encounters Date Type Department Care Team (Late Contact Info) Description 10/15/2024 9:50 AM EDT Routine [facility] [address] [place] [address] Erum Guidry PA [address] [place] [address] 01/01/2025 2:00 PM EDT Office Visit [facility] [address] [place] [address] Santosh Marshall DO [address] [place], [place] [id number] documented as of this encounter Visit Diagnoses Not on filedocumented in this encounter Care Teams Data Architect Relationship Specialty Start Date End Date Carrillo White MD [address] [place] [address] PCP - General Internal Medicine 11/29/22 documented as of this encounter
--- OUTSIDE RECORDS SUMMARY | 2024-09-24 12:33 | XMS_ITS | Encounter Summary ---
Author Organization [employer] Address [id number] [address] [place] [address] Care Team Providers Care Automotive Service Consultant Name Role Phone Carrillo White MD Primary Care Provider [phone] Encounter Details Date Type Department Care Team (Late Contact Info) Description 03/31/2021 Orders Only Maternal- Medicine at [facility] [address] [place] [address] Cuca Rabago CMA GDM (gestational diabetes mellitus), class A1 (Primary Dx) Social History Tobacco Use Types Packs/Day Years [...] have Coronavirus / COVID-19? No / Unsure 03/31/2021 8:52 AM EST documented as of this encounter Plan of Treatment Upcoming Encounters Date Type Department Care Team (Late Contact Info) Description 11/05/2024 11:30 AM EDT Appointment [facility] US Imaging [address] [place] [address] 11/05/2024 1:00 PM EDT Office Visit Maternal- Medicine at [facility] [address] [facility] [place] [phone] Jacklyn Blakely MD [address] [place] [address] documented as of this encounter Procedures Procedure Name Priority Date/Time Associated Diagnosis Comments POCT HEMOGLOBIN A1C Routine 03/31/2021 GDM (gestational diabetes mellitus), class A1 documented in this encounter Results * POCT Hemoglobin A1c (03/31/2021) External Poct Hgb A1C 5.1 % MANUALLY TRANSCRIBED RESULTS Blood 03/31/2021 Betty Orellana PA-C POINT OF CARE TEST ORDERABL ES Final Result MANUALLY TRANSCRIBED RESULTS documented in this encounter Visit Diagnoses Diagnosis GDM (gestational diabetes mellitus), class A1- Primary Abnormal maternal glucose tolerance, complicating , childbirth, or the puerperium, unspecified as to episode of care documented in this encounter Care Teams Automotive Service Consultant Relationship Specialty Start Date End Date Carrillo White MD PCP - General Internal Medicine 04/07/21 documented as of this encounter
== END 2024-09-24 12:29 | disposition home or self-care (01) ==
LOC: LAB 12:30
PROVIDERS: Visit Provider Obstetrics & Gynecology
DX: Z20.828 Contact with and (suspected) exposure to other viral communicable diseases (principal)
CPT/HCPCS: 36415; 86747

== ENCOUNTER 2024-10-02 10:26 | Outpatient (OUT) | payer BC, SELFPAY ==
--- OUTSIDE RECORDS SUMMARY | 2024-10-02 10:45 | XMS_ITS | CCD ---
Author Organization [facility] Care Team Providers Care Hematology Oncology Consultant Name Role Phone JOANNA, DR VILLATORO Admitting Unavailable JOANNA, DR VILLATORO Attending Unavailable MISC, DR LAURA Primary Care Unavailable JOANNA, DR VILLATORO Admitting Unavailable JOANNA, DR VILLATORO Attending Unavailable MISC, DR LAURA Primary Care Unavailable JOANNA, DR VILLATORO Consulting Unavailable JOANNA, DR VILLATORO Admitting Unavailable JOANNA, DR VILLATORO Consulting Unavailable JOANNA, DR VILLATORO Attending Unavailable ZIEBER, DR LILIANE Jaimes Consulting [...] DR LAURA Primary Care Unavailable JOANNA, DR VLILATORO Admitting Unavailable JOANNA, DR VILLATORO Attending Unavailable MISC, DR LAURA Primary Care Unavailable JOANNA, DR VILLATORO Consulting Unavailable JOANNA, DR VILLATORO Admitting Unavailable JOANNA, DR VILLATORO Attending Unavailable JOANNA, DR VILLATORO Consulting Unavailable JOANNA, DR VILLATORO Admitting Unavailable JOANNA, DR VILLATORO Attending Unavailable MISC, DR LAURA Primary Care Unavailable Ritu Desai Primary Care Physician Ya Thornton Primary Care Physician Norberto, Ya L Admitting Unavailable Norebrto, Ya L Attending Unavailable Agueda Gray Attending [...] JURADO Referring Unavailable CARMITA JURADO Attending Unavailable Alba Thorntonbemonty Alexandre Primary Care Physician Marta Almanzar Attending Unavailable Marta Almanzar Admitting Unavailable Marta Almanzar Attending Unavailable Norberto, Ya L Admitting Unavailable Norberto Ya L Attending Unavailable Marta Almanzar Attending Unavailable Ham Robins Attending Unavailable Ham Robins Attending Unavailable Marta Almanzar Attending Unavailable Marta Almanzar Admitting Unavailable SANTOSH MARSHALL Attending Unavailable SANTOSH MARSHALL Attending Unavailable Unavailable Primary Care Provider UnavailCarrillo Kirk MD Primary Care Provider [phone] Medications Current Medications Medication Drug Class(es) Dates Sig (Normalized) Sig (Original) acetaminophen 500 mg oral tablet (1 source) Start: 06-01-2021 take 2 tablets by mouth every eight hours as needed for pain acetaminophen (TYLENOL EXTRA STRENGTH) 500 mg tablet Take 2 tablets (1,000 mg total) by mouth every 8 (eight) hours as needed for pain. 30 tablet 06/01/2021 Active aspirin 81 mg delayed release oral tablet (1 source) Platelet Aggregation Inhibitor, Nonsteroidal Anti-inflammatory Drug take 1 tablet by mouth in the morning aspirin 81 mg Take 1 tablet (81 mg total) by mouth in the morning. Active cephalexin 500 mg oral capsule (2 sources) Cephalosporin Antibacterial Start: 03-09-2023 End: 03-16-2023 take 1 capsule by mouth four times daily Keflex 500 mg Cap 500 mg = 1 cap(s), Oral, QID, X 7 day(s), # 28 cap(s), Refills(s) 0, Pharmacy: [facility], 166, cm, 03/09/23 7:33:00 EST, Height/Length Dosing, 58.7, kg, 03/09/23 7:33:00 EST, Weight Dosing Start Date: 03/09/23 Stop Date: 03/16/23 Status: Ordered Colace (2 sources) Start: 11-30-2022 Colace Refills(s) 0 Start Date: 11/30/22 Status: Ordered Start: 06-01-2021 take 1 capsule by mo uth in the morning, then take 1 capsule by mouth at bedtime docusate sodium (COLACE) 100 mg capsule Take 1 capsule (100 mg total) by mouth in the morning and 1 capsule (100 mg total) before bedtime. 10 capsule 06/01/2021 Active Flonase (3 sources) Corticosteroid Start: 09-10-2018 Flonase Nasal, Daily, Refill(s) 0 Start Date: 09/10/18 Status: Ordered FREESTYLE LITE METER kit (1 source) Start: 03-26-2021 FREESTYLE LITE METER kit See Admin Instructions. 03/26/2021 Active hydrocortisone acetate 0.025 mg/mg / lidocaine hydrochloride 0.03 mg/mg rectal gel (2 sources) Antiarrhythmic, Corticosteroid, Amide Local Anesthetic Start: 11-19-2022 hydrocortisone-lido brianna 2.5%-3% rectal gel with applicator 1 carmen, Rectal, BID, 60 EA, Refill(s) 1, [id number], 166, cm, 11/11/22 9:28:00 EDT, Height/Length Dosing, 59.4, kg, 11/11/22 9:28:00 EDT, Weight Dosing Start Date: 11/19/22 Status: Ordered Start: 11-11-2022 hydrocortisone -lidocaine 2.5%-3% rectal gel with applicator 1 carmen, Rectal, BID, 60 EA, Refill(s) 1, [facility], 166, cm, 11/11/22 9:28:00 EDT, Height/Length Dosing, 59.4, kg, 11/11/22 9:28:00 EDT, Weight Dosing Start Date: 11/11/22 Status: Ordered ibuprofen 800 mg oral tablet (1 source) Nonsteroidal Anti-inflammatory Drug Start: 06-01-2021 take 1 tablet by mouth every eight hours as needed ibuprofen (ADVIL,MOTRIN) 800 mg tablet Take 1 tablet (800 mg total) by mouth every 8 (eight) hours as needed (cramping). 30 tablet 06/01/2021 Active levothyroxine sodium 0.125 mg oral tablet (20 sources) l-Thyroxine Start: 09-17-2024 End: 09-17-2025 take 1 tablet by mouth before mealtime levothyroxine (Synthroid) 125 MCG tablet Indications: Thyroid disease Take 1 tablet (125 mcg) by mouth in the morning. Take before meals. 30 tablet 11 09/17/2024 09/17/2025 Active Start: 08-22-2024 End: 08-22-2025 take 1 tablet by mouth before mealtime levothyroxine (Synthroid) 25 MCG tablet Indications: Thyroid disease Take 1 tablet (25 mcg) by mouth in the morning. Take before meals. 30 tablet 11 08/22/2024 08/22/2025 Active Start: 06-19-2024 take 1 tablet by stephanie once daily Synthroid 100 mcg Tab 100 mcg = 1 tab(s), Oral, Daily, # 90 tab(s), Refills(s) 0, Pharmacy: [facility], 166, cm, 08/08/23 15:44:00 EDT, Height/Length Dosing, 56.1, kg, 08/08/23 15:51:00 EDT, Weight Dosing Start Date: 06/19/24 Status: Ordered Quantity: 90.0 Unit: tab(s) Repeat number: 1 Start: 06-19-2024 take 1 tablet by stephanie once daily levothyroxine (Synthroid, Levoxyl) 100 MCG tablet Take 100 mcg by mouth Daily 06/19/2024 Active Start: 05-16-2023 take 1 tablet by stephanie th once daily Synthroid 100 mcg Tab 100 mcg = 1 tab(s), Oral, Daily, # 90 tab(s), Refills(s) 1, Pharmacy: [facility], 166, cm, 05/16/23 14:25:00 EST, Height/Length Dosing, 56.7, kg, 05/16/23 14:25:00 EST, Weight Dosing Start Date: 05/16/23 Status: Ordered Start: 02-07-2023 take 1 tablet by stephanie once daily Synthroid 112 mcg Tab 112 mcg = 1 tab(s), Oral, Daily, # 60 tab(s), Refills(s) 0, Pharmacy: [facility], 166, cm, 11/30/22 12:12:00 EDT, Height/Length Dosing, 58.8, kg, 11/30/22 12:12:00 EDT, Weight Dosing Start Date: 02/07/23 Status: Ordered Start: 10-08-2022 take 1 tablet by stephanie once daily Synthroid 112 mcg Tab 112 mcg = 1 tab(s), Oral, Daily, # 60 tab(s), Refills(s) 0, Pharmacy: [facility], 166, cm, 10/08/22 15:10:00 EDT, Height/Length Dosing, 57.8, kg, 10/08/22 15:10:00 EDT, Weight Dosing Start Date: 10/08/22 Status: Ordered Start: 10-08-2022 End: 08-17-2024 take 1 tablet by mouth in the morning levothyroxine (Synthroid, Levoxyl) 112 MCG tablet Take 112 mcg by mouth in the morning. 10/08/2022 08/17/2024 Discontinued Start: 05-03-2022 take 1 tablet by stephanie once daily levothyroxine 125 mcg (0.125 mg) Tab 125 mcg = 1 tab(s), Oral, Daily, # 90 tab(s), Refills(s) 3, Pharmacy: [facility], 166, cm, 05/03/22 14:21:00 EST, Height/Length Dosing, 61.2, kg, 05/03/22 14:21:00 EST, Weight Dosing Start Date: 05/03/22 Status: Ordered loratadine 10 mg oral tablet (13 sources) Start: 12-05-2019 take 1 tablet by mouth once daily Claritin 10 mg Tab 10 mg, Oral, Daily, # 10 tab(s), Refills(s) 0, Pharmacy: [facility], 166, cm, 12/05/19 13:03:00 EDT, Height/Length Dosing, 61.6, kg, 12/05/19 13:03:00 EDT, Weight Dosing Start Date: 12/05/19 Status: Ordered Quantity: 10.0 Unit: tab(s) Repeat number: 1 magnesium oxide 400 mg oral tablet (3 sources) Start: 08-17-2024 End: 09-16-2024 take 1 tablet by mouth once daily magnesium oxide (Mag-Ox) 400 MG tablet Indications: Nonintractable headache, unspecified chronicity pattern, unspecified headache type Take 1 tablet (400 mg) by mouth Daily 30 tablet 6 08/17/2024 09/16/2024 Active phenazopyridine hydrochloride 200 mg oral tablet (4 sources) Start: 03-09-2023 End: 03-12-2023 take 1 tablet by mouth three times daily Pyridium 200 mg Tab 200 mg = 1 tab(s), Oral, TID, X 3 day(s), # 9 tab(s), Refills(s) 0, Pharmacy: [facility], 166, cm, 03/09/23 7:33:00 EST, Height/Length Dosing, 58.7, kg, 03/09/23 7:33:00 EST, Weight Dosing Start Date: 03/09/23 Stop Date: 03/12/23 Status: Ordered Start: 02-21-2023 End: 02-24-2023 take 1 tablet by mouth three times daily Pyridium 200 mg Tab 200 mg = 1 tab(s), Oral, TID, X 3 day(s), # 9 tab(s), Refills(s) 0, Pharmacy: [facility], 166, cm, 02/21/23 13:06:00 EST, Height/Length Dosing, 58.6, kg, 02/21/23 13:06:00 EST, Weight Dosing Start Date: 02/21/23 Stop Date: 02/24/23 Status: Ordered PNV no.95/ferrous fum/folic ac ( ORAL) (1 source) PNV no.95/ferrou s fum/folic ac ( ORAL) Take by mouth daily. Active polyethylene glycol 3350 574856 mg / potassium chloride 1480 mg / sodium bicarbonate 5720 mg / sodium chloride 02954 mg powder for oral solution (11 sources) Osmotic Laxative Start: 11-30-2022 NuLYTELY Paige oral powder for reconstitution See Instructions, 1 EA, Refill(s) 0, Prior to colonoscopy., [id number], 166, cm, 11/30/22 12:12:00 EDT, Height/Length Dosing, 58.8, kg, 11/30/22 12:12:00 EDT, Weight Dosing Start Date: 11/30/22 Status: Ordered Quantity: 1.0 Unit: EA Repeat number: 1 progesterone (FIRST-PROGESTERONE VGS) 200 mg suppository (1 source) Start: 03-26-2021 progesterone (FIRST-PROGESTERONE VGS) 200 mg suppository Indications: Hypothyroid in , antepartum, second trimester , Intrauterine growth restriction affecting care of mother, unspecified trimester, not applicable or unspecified fetus , Cervical shortening affecting in second trimester , Intrauterine growth restriction (IUGR) affecting care of mother, second trimester, single gestation , Encounter for other screening follow-up Insert 1 suppository (200 mg total) into the vagina nightly. 30 each 03/26/2021 Active Completed/Discontinued Medications Medication Drug Class(es) Dates Sig (Normalized) Sig (Original) nitrofurantoin, macrocrystals 25 mg / nitrofurantoin, monohydrate 75 mg oral capsule (6 sources) Nitrofuran Antibacterial Start: 09-11-2024 End: 09-18-2024 take 1 capsule by mouth in the morning nitrofurantoin, macrocrystal-mono hydrate, (Macrobid) 100 MG capsule Indications: Urinary tract infection without hematuria, site unspecified Take 1 capsule (100 mg) by mouth in the morning and 1 capsule (100 mg) before bedtime. Do all this for 7 days. 14 capsule 09/11/2024 09/18/2024 Start: 02-21-2023 End: 02-26-2023 take 1 capsule by mouth every twelve hours Macrobid 100 mg Cap 100 mg = 1 cap(s), Oral, q12hr, X 5 day(s), # 10 cap(s), Refills(s) 0, Pharmacy: [facility], 166, cm, 02/21/23 13:06:00 EST, Height/Length Dosing, 58.6, kg, 02/21/23 13:06:00 EST, Weight Dosing Start Date: 02/21/23 Stop Date: 02/26/23 Status: Ordered Problems Active Problems Problem Classification Problem Date Documented Da te Episodic/Chronic Abdominal pain (13 sources) Abdominal pain 09-29-2020 Episodic Bacterial infection; unspecified site (1 source) Infection due to Escherichia coli; Translations: [Unspecified Escherichia coli [E. coli] as the cause of diseases classified elsewhere] Onset: 03-24-2023 Episodic Genitourinary symptoms and ill-defined conditions (4 [...] [Dysmenorrhea, unspecified] Onset: 08-08-2023 08-12-2020 Chronic Other complications of (2 sources) Thyroid disease in mother complicating , childbirth AND/OR puerperium; Translations: [Endocrine, nutritional and metabolic diseases complicating , unspecified trimester] 09-20-2024 Episodic Other endocrine disorders (4 sources) Hypoglycemia 10-08-2022 [...] 11-30-2022 Episodic Other and delivery including normal (20 sources) Encounter for supervision of normal first , first trimester; Translations: [Encounter for supervision of normal , unspecified, unspecified trimester] Onset: 12-02-2020 Episodic Other screening for suspected conditions (not mental disorders or infectious disease) (11 sources) Encounter for screening for malignant neoplasm [...] other mental and behavioral disorders] 05-14-2024 Episodic Residual codes; unclassified (2 sources) Gestation period, 13 weeks; Translations: [13 weeks gestation of ] 09-17-2024 Episodic Residual codes; unclassified (4 sources) History of previous intrauterine growth restricted ; Translations: [Personal history of other complications of , childbirth and the puerperium] 09-17-2024 Episodic Thyroid disorders (20 sources) Hypothyroidism, unspecified; Translations: [Hypothyroidism] Onset: 02-28-2021 Chronic Thyroid disorders (7 sources) Disorder of thyroid, unspecified; Translations: [Disorder of thyroid gland] Onset: 12-19-2020 Episodic Unclassified (13 sources) Body mass index -24 - normal 11-19-2020 Unclassified (13 sources) Non-smoker [...] Problem Classification Problem Date Documented Date Episodic/Chronic Diabetes or abnormal glucose tolerance complicating ; childbirth; or the puerperium (13 sources) History of gestational diabetes mellitus; Translations: [Gestational diabetes mellitus] Onset: 05-19-2021 10-08-2022 Episodic Early or threatened labor (2 sources) Premature uterine contraction; Translations: [False labor before 37 completed weeks of gestation, third trimester] Onset: 04-21-2021 04-21-2021 Episodic Other complications of (4 sources) Endocrine, nutritional and metabolic diseases complicating , unspecified trimester; Translations: [ENDOCRN NUTR MET DZ COMP PG UNS TRI] Onset: 02-24-2021 Episodic Other complications of (1 source) Disorder of ; Translations: [Maternal care for other known or suspected poor growth, unspecified trimester, not applicable or unspecified] Onset: 03-03-2021 05-19-2021 Episodic Other complications of (1 source) Hypothyroidism in ; Translations: [Endocrine, nutritional and metabolic diseases complicating , unspecified trimester] Onset: 03-07-2021 05-19-2021 Episodic Other complications of (1 source) Short cervical length in ; Translations: [Cervical shortening, third trimester] Onset: 05-19-2021 05-19-2021 Episodic Other female genital disorders (4 sources) Other specified noninflammatory disorders of vagina; Translations: [OTH SPEC NONINFLAMMATORY D/O VAGINA] Onset: 07-13-2021 Episodic Polyhydramnios and other problems of amniotic cavity (1 source) premature rupture of membranes ; Translations: [ premature rupture of membranes, unspecified as to length of time between rupture and onset of labor, unspecified trimester] Onset: 05-30-2021 05-30-2021 Episodic Results Test Name Value Interpretation Reference Range [facility] ALL MISCELLANEOUS TESTon MISCELLANEOUS TEST COMMENT . [facility] Comment on above: Test Ordered: [id number] Parvovirus B19, Human, IgG/IgM Parvovirus B19, IgG 0.1 index Reference Range: 0.0-0.8 Negative <0.9 Equivocal 0.9 - 1.1 Positive >1.1 Parvovirus B19, IgM 0.1 index BN Reference Range: 0.0-0.8 Negative <0.9 Equivocal 0.9 - 1.1 Positive >1.1 Performed at: [address] [id number] Director Corporate Communications: Darion Moon MD, Phone: [phone] Performed at: [address] [id number] Director Corporate Communications: Madi Maloney PhD, Phone: [phone] Parvovirus B19 (Human), IgG, IgM [facility] ALL MISCELLANEOUS TESTon MISCELLANEOUS TEST COMMENT . [facility] Comment on above: Test Ordered: [id number] Parvovirus B19, Human, IgG/IgM Parvovirus B19, IgG 0.1 index Reference Range: 0.0-0.8 Negative <0.9 Equivocal 0.9 - 1.1 Positive >1.1 Parvovirus B19, IgM 0.1 index Reference Range: 0.0-0.8 Negative <0.9 Equivocal 0.9 - 1.1 Positive >1.1 Performed at: - [facility] [id number] Director Corporate Communications: Darion Moon MD, Phone: [phone] Performed at: - [facility] [id number] Director Corporate Communications: Madi Maloney PhD, Phone: [phone] Parvovirus B19 (Human), IgG, IgM [facility] ALL CBC WITH AUTO DIFFon BASOPHILS ABSOLUTE AUTO 0 [facility] Basophils/100 WBC (Bld) 0.5 % 0.2 - 2.0 % [facility] Eosinophils/100 WBC (Bld) 0.5 % Low 0.9 - 7.0 % [facility] Erythrocyte distribution width (RBC) [Ratio] 12.3 % 11.0 - 15.0 % [facility] Hematocrit (Bld) [Volume fraction] 38.5 % 36.0 - 48.0 % [facility] IMMATURE GRANULOCYTES ABS AUTO 0.02 [facility] Immature granulocytes/100 WBC (Bld) 0.3 % 0.0 - 0.5 % [facility] Interpretation and review of laboratory results Abnormal [facility] LYMPHOCYTES ABSOLUTE AUTO 1.6 [facility] Lymphocytes/100 WBC (Bld) 21 % 20.5 - 60.0 % [facility] MCH (RBC) [Entitic mass] 33.5 pg 26.7 - 34.0 pg [facility] MCHC (RBC) [Mass/Vol] 35.6 g/dL High 29.9 - 35.2 g/dL [facility] MCV (RBC) [Entitic vol] 94.1 fL 81.0 - 99.0 fL [facility] MONOCYTES ABSOLUTE AUTO 0.4 [facility] Monocytes/100 WBC (Bld) 5.1 % 1.7 - 12.0 % [facility] NEUTROPHILS ABSOLUTE AUTO 5.6 [facility] Neutrophils/100 WBC (Bld) 72.6 % 43.0 - 75.0 % [facility] Platelet mean volume (Bld) [Entitic vol] 11.1 fL 9.5 - 13.5 fL [facility] TBH EO # 0 [facility] TBH PLT 211 [facility] TB RBC 4.09 Low [facility] TB WBC 7.8 [facility] CBC and differentialon 08-21 Hematocrit (Bld) [Volume fraction] 39 % 36 - 46 % [facility] Platelets (Bld) [#/Vol] 211 10*3/uL 150 - 399 10*3/uL [facility] WBC (Bld) [#/Vol] 7.8 10*3/mL 3.3 - 10.0 10*3/mL [facility] Drug Screen, Urineon 025 Amphetamine/Methamph etamine Negative [facility] Barbiturates Negative [facility] Benzodiazepines Negative [facility] Cocaine Metabolite Negative [facility] Methadone Negative [facility] Opiates Negative [facility] Oxycodone Negative [facility] Phencyclidine Negative [facility] Thc Marijuana, Urine Negative [facility] HBV surface Ag IA Qlon 08-21 Hepatitis B Surface Antigen Negative [facility] HCV Ab IA Qlon 08-21-2024 HCV Ab Ql (S) Non-Reactive [facility] HIV 1+2 Ab+HIV1 p24 Ag IA Ql on 08-21-2024 HIV 1&2 AB/AG Non-Reactive [facility] Hemoglobin A1con 08-21-2024 HbA1c (Bld) [Mass fraction] 5.6 % 4.0 - 6.0 % [facility] Laboratory - Hematology and Cell countson 08-21-2024 Hemoglobin (Bld) [Mass/Vol] 13.7 g/dL 12.0 - 16.0 g/dL [facility] No Panel Informationon 08-21 [facility] Rubella IGG immune statuson 08-21-2024 Rubella immune IgG immune [facility] T. pallidum IgG+IgM IA Ql (S )Ordered By: Nadira Salazar on 08-21-2024 Syphilis Non-Reactive [facility] TSHon 08-21-2024 Thyroid Stimulating (3Rd Generation) Hormone/ Tsh 7.721 [facility] Type and screenon 08-21-2024 Abo/Rh(D) Positive [facility] HCG ( test) Ql (U)o n 08-17-2024 Interpretation and review of laboratory results Abnormal [facility] Preg Test, Ur Positive Negative [facility] US OB TRANSVAGINALon 025 US OB TRANSVAGINAL [...] II, MD, PHD at 20-Aug-2024 10:22:40 AM [facility] [employer] Normal Not Available Comment on above: Order Comment: US OB TRANSVAGINAL No LMP recorded. Urinalysis macro (dipstick) panel (U)on 08-17-2024 Bilirubin, UA Negative Negative - 4(7 0) +++ mg/dL [facility] Blood, UA Negative Negative - 50 Cedric/mcL [facility] Clarity, UA Clear [facility] Color, UA Yellow [facility] Glucose, UA Negative Negative - 2000(110) ++++ mg/dL [facility] Interpretation and review of laboratory results Normal [facility] Ketones, UA Negative Negative - 160(16) ++++ mg/dL [facility] Leukocytes, UA Negative Negative - 50 0+++ Ayana/mcL [facility] Nitrite, UA Negative Negative - Positive [facility] pH, UA 7 5 - 9 [facility] Protein, UA Negative Negative - 2000(20) ++++ mg/dL [facility] Spec Grav, UA 1.015 1 - 1.03 [facility] Urobilinogen, UA 0.2 0.2 - 12 mg/dL [facility] Ambulatory Visit Summaryon 0 - Ambulatory [...] 8:40 AM EDT With: Marta Rivas Where: [facility] [address] [place] [address] [place] [address]- Medications What How Much When Why Instructions [...] choosing us for your care. Normal [facility] Family Medicine Office/Clini c Noteon 07-09-2024 Family [...] anymore, managed with tylenol Social History: Occupation: [employer] Family life: home with and daughter Diet: no restrictions Caffeine: 1 cup coffee/day Exercise: active lifestyle Alcohol use: denies Drug use: denies Smoking status: denies Health Maintenance: Routine labs: thyroid labs 06/2024, declines further labs Pap (21-64yo): 04/2023 Specialists: Medical Support Specialist: rosario Dentist: rosario OBGYN: Joanna Review of [...] Recheck TSH/T (more content not included)... Normal [facility] Comment on above: Result Comment: Elec tronically Signed By: Marta Rivas\.br\Date and Time Signed: 07/09/24 08:35 EDT Ambulatory Visit Summaryon 0 07-05-2024 Ambulatory Visit Summary Ambulatory Visit Summary LILIANAEDUARDO MONTENEGROLoreto Jaimes :2000 Visit Date:07/05/2024 Ambulatory Visit Instructions Your [...] 8:00 AM EDT With: Marta Rivas Where: [facility] [address] [place] [address], [place] [address]- Medications What How Much When Why Instructions New amoxicillin-clavulan ate (Augmentin 875 mg-125 mg Tab) 1 Tablets By Mouth Every 12 hours Acute sinusitis Duration: 10 Days Pickup at [facility] Unchanged levothyroxine (Synthroid 100 mcg Tab) 1 Tablets By Mouth Every day Pharmacy Information [facility]: [address] [place], [place] [id number] [phone] Allergies No Known Allergies Problems Ongoing - [...] for choosing us for your care. Normal [facility] Family Medicine Office/Clini c Noteon 07-05-2024 Family [...] for 10 day(s), 20 tab(s), Refill(s) 0, [facility], 166, cm, 07/05/24 15:34:00 EDT, Height/Length [...] Follow-up With When Contact Information Julienne BARTLETT, Ham Montano, CINDY, [address], [address] [phone] Additional Instructions: as scheduled with Marta Patient Education Sinus Infection, Adult, [id number] How to Perform a Sinus Rinse, [id number] Problem List/Past Medical History Ongoing Acute sinusitis [...] vaccine, inactivated (more content not included)... Normal [facility] Comment on above: Result Comment: Elec tronically Signed By: Julienne BARTLETT, Ham Montano\.irvin\Date and Time Signed: 07/05/24 16:06 EDT CHEMISTRYOrdered By: SYSTEM SYSTEM on 07-04-2024 Free T4 [Mass/Vol] 0.82 ng/dL Normal 0.58 - 1.64 ng/dL Remisol Chem TSH Qn 3.09 m[IU]/L Normal 0.34 - 5.60 mcIU/mL Remisol Chem Free T4on 07-04-2024 Free T4 [Mass/Vol] 0.82 ng/dL Normal 0.58-1.64 [facility] Comment on above: Performed By: #### [id number] #### [facility] [address] [place] [address] TSHon 07-04-2024 TSH Qn 3.09 m[IU]/L Normal 0.34-5.60 [facility] Comment on above: Performed By: #### 2 [id number] #### [facility] [address] [place] [address] DNA EXTRACTION AND HOLDon Method Gentra Puregene Reagents from [employer] Invalid Interpretation Code [facility] [place] Comment on above: Order Comment: Relea se to patient->Automatic Nucleic Acid Concentration 273.2 ng/uL Invalid Interpretation Code [facility] [place] Comment on above: Order Comment: Relea se to patient->Automatic Nucleic Acid Purity 1.90 Invalid Interpretation Code 1.70-2.10 [facility] [place] Comment on above: Order Comment: Relea se to patient->Automatic Signature . Invalid Interpretation Code [facility] [place] Comment on above: Order Comment: Relea se to patient->Automatic Storage and Special Instructions Invalid Interpretation Code [facility] [place] Comment on above: Order Comment: Relea se to patient->Automatic Result Comment: The extracted DNA is stored in the [facility] at -70 degrees C and is being held for future testing. If there are any questions regarding this sample, please contact the [facility] at [phone]. Total DNA Yield 82.0 ug Invalid Interpretation Code [facility] [place] Comment on above: Order Comment: Relea se to patient->Automatic Total Volume DNA 300 ul Invalid Interpretation Code [facility] [place] Comment on above: Order Comment: Relea se to patient->Automatic IGP,APTIMA HPV,AGE GDLNon AGE GDLN ACOG TESTING Note . [facility] Comment on above: TESTS RESULT FLAG UN ITS REF RANGE LAB Clinician Provided Cytology Information Source.............Cervix;Endocervix No. of containers..01 ThinPrep Vial Age Ronaldo ASTORGA Francheska... FLAG LEGEND: L-Low Normal,H-High Normal,LL-Alert Low,HH-Alert High <-Panic Low,>-Panic High,A-Abnormal,AA-Critical Abnormal Performed at: 01 =[address] [address] Sugey Torres MD, IGP, RFX APTIMA HPV ASCU Note . [facility] Comment on above: TESTS RESULT FLAG UN ITS REF RANGE LAB DIAGNOSIS: 02 NEGATIVE FOR INTRAEPITHELIAL LESION OR MALIGNANCY. Specimen adequacy: 02 Satisfactory for evaluation. Endocervical and/or squamous metaplastic cells (endocervical component) are present. Performed by: 02 Yudy Rhoades, [employer]ilermaker Pipe [employer]itter ([facility]) . 02 Note: Note 02 The [...] <-Panic Low,>-Panic High,A-Abnormal,AA-Critical Abnormal Performed at: [address] [address] Sugey Torres MD, Performed at: = - [facility] [id number] Director Corporate Communications: Sugey Torres MD, Phone: [phone] Performed at: [address] [id number] Director Corporate Communications: Sugey Torres MD, Phone: [phone] BRUSH-SPATULA CERVIX ENDOCERVIX [facility] Coding Summary.on 09-14-2023 Coding Summary. FVIWOqzd18OId7jMy+PG hlYWQ+UG9SBGPqX85piB OagP3lM5RRLSfWWpgnZC TIWXmZQgLkzyGbCA1ejU NjZXJu IC8+NS1iBWGlMlpvpYOs k8F6jVT7Y37nkz5zVHio yCH3RNPgPaLgnddzv5vy aFy1UExsMqtdIkYt VJBrtQ26FPC1pW55Pr43 bKZmlZZtk6avwVa7GiNx XNHaFEU3iQtqCBsgn3Tr QWLsK22prGZfi6H0 IGNvbGxhcHNlOyBlbXB0 wX2vEUjjrdjds3swciat Rgk1ci52tMCqj7Z8gTN9 U9LmqbV1EHUllLZs PndpqAFFiR5bmhgfv0zz qfbyKrZtLHHfSXn1BKq0 VIHfiTcoLaAmNC31QQQ1 SIYttjZqU7GiCSGf bTbfImX2j0E1Fr6MI0OX RvluJ4OSRBMAKBmqkGO+ HY63tu22M2PbVoitGia8 LBDrSYC1tFX6nO9z DHLvWQsfo0W6fDD2X6Vd lbUjzd3oj3ufTOWyAIso Z40aiIInq1N9VZPijWB6 MNGijCjaGwDseG71 Oyc+JWQumFkyg0ZiNxec z8bbj5lfsAe6GicgXWCn vrXedXsrSUY2f6EoMo3z ANMyjZV1eUY0hO4i NuQrWcY6BUvfM570IzCc nULwDkxmQ27eC6RxfVM+ CFHuHha2JPLfgKjxWI6p Q6YyLAWbgpnkgCIy cFblRA2uLJItzyiwDJPv iZ1sPWGgY5o5QoYtWnA4 LHuzT3HqIUSmoowfZu80 pP8bEzKwCjG5LVeg J3PqrqM1IKRafWEeSKlj OJN8X46wv0S2OLSpEZTr NQE7qMA9uL5fwDoccxoz bGVmdDsgdmVydGlj LMerWThgR988AOKjbZkh PkNvZGluZyBEYXRlOiAg MDYvMjYvMjAyNDwvdGQ+ BDXpNHC3gLgwYNIs sAAfOEaqVr2ndMwjbIgd QB4bEAZrgvawCITkjX6z SILufEPnvHuxSG4iOLNs gpaai723OrJrMBN3 FKKmsPRpZ9VbfU1xDsDx XHAhUVMkE5JskFUzDHqn V919YBfiDwS4YIWnidZe D6DqCVBlpStpJnK8 m4L5Mg7Pu6WsdccmC6Ig lGYpSpKiUnptNBv5M1Aa PjwvdHI+ZS86JVUiUF85 AEn2ENF1eBfeFNst ZACvG4QbtA5fGeDkTDVx ZGRkOyc+PHRhYmxlIHdp ZHRoPScxMDAlJyBzdHls UB1vUr9jNXLyEPKr tLlgeFJkAzGwj1cvBUEn SOpxDB8jtAweI5XdgYT7 JQPmq5j8Ym55M90jK4Np dXA+QDAycGU7zAG5 zF1iYhPpHjK6EWkjB196 ErDzkYGwIhacl8kjy5wq jQi8LcN1SMAezbTwvCii YXX7c8CtZe68N66u IHdpZHRoPSIxNSUiIHZh rBwnpp1woC6jTo0+PGNv xWQ4kZD0nQ9rQhZfCdO1 HFubL877ObEpjZAq Agohi7tpf0vqiHz7PxDn YBVwseCwrFsqSUJ9c2Xn Ne80S8XyjXjju1VuObl8 mf55bUBlp0G6bFH9 G1OaXPPtpcdxiVJilTnu AY4lAEByradhPRAziW9i QMBnG1r5FxUuNzG4VIgt O0KagoW6ELQrvDUy HDGwpQGUcG2vpores8qd eymqOjCrAZMsFOm7PPh3 KXSqaCluWjNgJVB8ZgZ8 SOW6aVAkxX6hhMjm mjoecR0nRri+OPE7rLUw zFYWHK0zIvyksII+PHRk LJI5yNfrWWceUWZgkZ2s FZDlJ4r8ZwLgJqC7 UXdaJ1GdciI9KTWghOQg IANkiJTYrX9udbsxh6mi scixIfVbTKXmZLi8TAu3 LWFsaWduOiBsZWZ0 YfX4KLP9vDPcjP1ncEps yknexR4nVlx+QmlydGgg EUU3UMo9S4TrCfn3GHIg vXhmIZ0toKRwDMcf We3wrEtpgHzlLE3dZGWq fbvhi751YzUqy4vpROSl wQTjUNxvIOY0V19js5V6 BGUvIPWoQFM6nSZ5 nO4naQenwunvbVMfhWcc ylYvkBtnVHfaBWbpA726 MFLoxCgkXpUhREl4U3Jz Rxe5XZLdeQywRX3t cQMzCLjlGc4veLpsvHex WE5mSWWxvvrds529QmYb b4cpHIWmeFQkWResJMK6 G46sp1R0DROiFXBy NJC7uEZ8qV6vcOzglaat bGVmdDsgdmVydGljYWwt OOaxT293JRIgwTpoHtEz qYy8R7WhHyx7ZPXy qXmgER6beOUxPEviCg0p pAeojXdaVH0wVUYibpcb v389PhSmr1tkHFAkcVOe VRvlTOR9S21cv6Y5 CCWhNZIvDKF1bPE5fG7c bGlnbjogbGVmdDsgdmVy pBhwXBriEStsL049VNOz cDsnPlBhdGllbnQg GGpoCGg1R2HbZmikbRI+ FB22LLMnEB94rELymOXw l0mzeXp6YsEiHXHfTKY1 vRsxECbao2KoUGIl Y94rdTWid2D5SWGtqLec yLWwYqPbtEL8aE1nTRkm aykcg3gkmrtkIlwvm3il jf01aD42A37pARwh ZHRoPSIzMCUiIHZhbGln eh4uhN9fYt0+PGNvbCB3 lDL8dL8pPTMdKhO6ELrq H408PsAuyRXcBzey e7iye3xyoNh3GlQ2ICWj coNryNvdXXI4h8OhVp87 N25aIKwxCZGbMJYhGKDx LUCcmBfije2aoM5f Ii8+IBGlyQC9rAM6mZ5r MoNmBcZ5HMxaA800ImNe bJQaMiqgT28nN1WczLQ+ FIZxCfv9JQQfhHpr SL7fhFXuOPplRz6hQGI6 WyLaAsTlVOgqQ0YgDAAj cbrtbavpmDP1KGDkOMTr tR82Rv7abQypCECc sLGTtR6bpvlux2rpdsah LxNpINIeNDr9FFv4CIJo qLudNtNsKGT3VtF0RUB3 mZVyfJ4yaWvikauf mW4lD1UgFUUheoegQi31 pM7lRzOqMzO0COxcWmr+ QlJPRUNLRUwsIFNJRVJS HZELMX03OI69rSRf x5P5eDK9W0XiRIDgmcbd kcrdqRI6CVFwJOHeoH78 nIJcVIxkTy0eh3H9i861 OMRdGUPmxR12Vs3w rDuiKNEsiQDFkE7nuszq z4ltmtpvKwLpZWAvWWr2 DZt2NNApbYvhFaLuEFA1 YdB2JEY1fAXzsR5l hBexmmeuxD6bRhc+MTAv NeysXMe0GZuhuCX+PHRk MHJ1mAvoYQfbTJDhvN5h NVVxA3t9JgBjHgH8 DWebZ9ObCKSvurggUo51 nN4lIzBjXeG3YKfnQ8Bv amU0VGLpwUXlNSjgLDR3 O86gz2Q6LZNuCOOf KGW4qBF6cL9ltYdawbfm bGVmdDsgdmVydGljYWwt DEohY315VWWwhFocOuU1 NAtjJQJvJK07AW76 vNTbq7P8uNG7Z7UyYUWl lipgpzmlzBY1LIGmRRFb hF09hYWrEDlrAd9bc9Q5 j734ETUbCWLyzZ39 Sm3siIibSLFekBBHyR8w ejydy5zjyeveAgLfVQEw VDf4LTo6MHLpnNhsMtEs WAJ8XnA3WND1gXBz vK3gsQnnnfrxfW4iBei+ PnYwLBmoBH62UH26gXDg a1X6tQU9U9KbCWJnslxk omtqnIC7QSFkZMOa yN40mNStLWfhXh1nh0Y0 y083RTUyLUIarT01Ft3m tHjoWOSvaUVOsW6boghq y8zfcdrkFuLqRFXx NMv2RTw1LQIwvVzuDtTe OFT4RuV0VSL0gNDlxT2x dVwvvwzzuF7oLvi+T3V0 nVD4xKOwsNebvVX+ IU78do37Y9AdDzfwAjp7 IMWuJUM8oRI1mM2bVWMm NOckq9T1sDA8C3ImaeQu vf1vu4kpXBZqOCdm I95ogTAsn8G8SXRlsGT9 AMTrxFvyYxCenR14Jwl+ MIHvoZyhb4ObWidft8td z4skbPy9YoQcVDRy udEimHsrZVW9c6OlEr18 M02eDYbbECFpLKJdWXVm JHYcjHywox9dzC4nUj1+ WYUgjQY8rTO4iM1y PmUaGmE2WBnhI056KsLr wBGsGploo3bdk6vxwXy1 IjIwJSIgdmFsaWduPSJ0 t7HcVu70V3XimGsp t3IuUbv0wx06bMOwm4N5 oMI3M8RmAJWptpqxdQFk aGrrYB3iLWEteumeGQKq qX2gTOHcD2l3OcFz AbG0OCvsL1BnvzD3JJXu cQVsALLcsYYAwJ3yokpb t6stqujqZwIcLEPaWCu1 VEv8CSBepTgaZkGs PYJ9ZeP6PSX6gEEwpP7t aVmsyyzjzT9fPmt+UGh5 e4nwiSMeVA8fsOB0GK38 OV99yTZzs9O7oEE9 K9NkWSMezdggaschyQN7 BRHyPTWzlX96Rg5kaDyk Tn4mZKHkXEV8GQNgnAFt E1NoiE3iUoFbNQHr XRQtG8PxyQBdRMylU304 JZuvZzB0QPKqteUoD2Ob FHNppKhlHxC8x1B2Az7L TT86HD29ON96qZOh w1D7uIS8P5HnNUGicffu yojzxOU2XDSiKFXolE28 Ho8blBwsOx9jDAGpYXS4 YAMtqKIyU2HfkX8f DjJfUOMpHFOjP6VlcDTs HZmqK592WBcjRjV1XBUs kcIuZ1JoJAZfhOeeXmG3 l2L7Nq0JSb09WV21 LY67lBJot4J8kFL3U0Mr VJYmulwqhetjlRD9PBBt GSOngO88Jr3pdOxuTo6u UWSvTEL5TXPqyATn J1GkdL7gBvJrFOFwHTRc J6EncXNgRCsqZ323MWfm XmJ3IAWnnrZlO3HwJLFv dUymPaZ5l5B8On0Y TFoprqs0U9EnNqgfmVN+ VA81AQBzWZ96bJLjuOSa t5pokWh4TyKkXZYsKAE1 vTdkMApsx7CgWYPp J01fxDFtr4B4N (more content not included)... Normal [facility] CHEMISTRYOrdered By: SYSTEM SYSTEM on 09-07-2023 Free T4 [Mass/Vol] 0.92 ng/dL Normal 0.58 - 1.64 ng/dL Remisol Chem TSH Qn 3.37 m[IU]/L Normal 0.34 - 5.60 mcIU/mL Remisol Chem Consent for Treatmenton 08-19 Consent for Treatment [id number] #1.00TIFF Normal [facility] Free T4on 09-07-2023 Free T4 [Mass/Vol] 0.92 ng/dL Normal 0.58-1.64 [facility] Comment on above: Performed By: #### 2 [id number] #### [facility] [address] [place] [address] TSHon 09-07-2023 TSH Qn 3.37 m[IU]/L Normal 0.34-5.60 [facility] Comment on above: Performed By: #### 2 [id number] #### [facility] [address] [place] [address] Ambulatory Visit Summaryon 0 08-08-2023 Ambulatory Visit Summary YANA CHURCH :2000 Visit Date:08/08/2023 Ambulatory Visit Instructions Your [...] for choosing us for your care. Normal [facility] Family Medicine Office/Clini c Noteon 08-08-2023 Family [...] hemorrhoids) Resolved, no additional complaints. [facility] for screening colonoscopy/diagnost ic colonoscopy due [...] will continue to follow with Dr. Marshall recheck CBC Portions of this record may have been created with voice recognition artificial intelligence software, specifically [employer] and or [employer]. Substitutions may have occurred due to the [...] Alcohol Curren (more content not included)... Normal [facility] Comment on above: Result Comment: Elec tronically Signed By: Ya Wang\.br\Date and Time Signed: 08/08/23 16:26 EDT Patient [...] Follow these instructions at home: ? Take vhvb-rsy-gsqjzee and prescription medicines only as told by [...] provider. Document Revised: 03/09/2022 Document Reviewed: 03/09/2022 [employer] Patient Education ? 2022 [employer]. Gastroenterology Hemorrhoids Hemorrhoids are swollen veins in and around the rectum or anus. There are two types of hemorrhoids: ? Internal hemorrhoids. These occur in the veins that are just inside the rectum. They may poke through to the outside and become irritated and painful. ? External hemorrhoids. These occur in the veins that are (more content not included)... Normal [facility] PAP [id number] 05-20-2023 C. trachomatis rRNA FRANSISCO+probe Ql (Cvx) Negative Invalid Interpretation Code Negative [facility] Comment on above: Performed By: #### 1 [id number] ####[facility] [address] [place] [address] Cytology report Cyto stain Doc (Cvx/Vag) Note Invalid Interpretation Code [facility] Comment on above: Result Comment: TEST S RESULT FLAG UNITS REF RANGE LAB Clinician Provided Cytology Information Source.............Cervix No. of containers..01 ThinPrep Vial DIAGNOSIS: 01 NEGATIVE FOR INTRAEPITHELIAL LESION OR MALIGNANCY. Specimen adequacy: 01 Satisfactory for evaluation. Endocervical and/or squamous metaplastic cells (endocervical component) are present. Performed by: 01 Erum Mckenzie, Boilermaker Pipe Fitter ([facility]) . 01 Note: Note 01 The [...] <-Panic Low,>-Panic High,A-Abnormal,AA-Critical Abnormal Performed at: [address] [place] [address] Sugey Torres MD, Performed By: #### 1 [id number] ####[facility] [address] [address] HPV 16+18+31+33+35+39+45 +51+52+56+58+59+66+6 8 DNA Probe+sig amp Ql (Cvx) Negative Invalid Interpretation Code Negative [facility] Comment on above: Result Comment: This nucleic acid amplification test detects fourteen high-risk HPV types (16,18,31,33,35,39,45,51,52,56,58,59,66,68) without differentiation. Performed By: #### 1 [id number] ####[facility] [address] [place] [address] N. gonorrhoeae rRNA FRANSISCO+probe Ql (Cvx) Negative Invalid Interpretation Code Negative [facility] Comment on above: Performed By: #### 1 [id number] ####[facility] [address] [place] [address] T. vaginalis rRNA FRANSISCO+probe Ql (Unsp spec) Negative Invalid Interpretation Code Negative [facility] Comment on above: Result Comment: Perf ormed at: [facility] [id number] MD Brian Mayes Performed at: =[facility] [address] [address] [place], [place] [id number] MD Brian Mayes Performed By: #### 1 [id number] ####[facility] [address] [place] [address] Family Medicine Office/Clini c Noteon 05-16-2023 Family [...] was performed without the assistance of medical staff physician as witness Pelvic Exam: Vulva: normal appearance, [...] up every 3-5 years based on results AGRONOMY TECHNICIAN referral if needed for further testing or [...] 6 months (more content not included)... Normal [facility] Comment on above: Result Comment: Elec tronically Signed By: Norberto BARTLETT, Ya Alexandre\.irvin\Date and Time Signed: 05/16/23 15:38 EST PAP 05-16-2023 Gynecological Body Site CERVIX Normal [facility] Comment on above: Performed By: #### 1 [id number] ####[facility] [address] [place] [address] Patient Educationon 05-16-19 24 Patient Education Obstetrics and Gynecology Pap Test [...] including vitamins, herbs, eye drops, creams, and xppa-uko-lgzjbfh medicines. ? Any bleeding problems you have. [...] provider. Document Revised: 06/05/2021 Document Reviewed: 06/05/2021 [employer] Patient Education ? 2022 [employer]ike. Oncology Cancer Screening for Women A cancer [...] How i (more content not included)... Normal [facility] Consent for Treatmenton Consent for Treatment [id number] #1.00TIFF Normal [facility] UA With Cult Reflexon 2023 Bilirubin Ql (U) Negative Normal Negative [facility] Comment on above: Performed By: #### 1 [id number] ####[facility] [address] [place] [address] Clarity (U) CLEAR Normal Clear [facility] Comment on above: Performed By: #### 1 [id number] ####[facility] [address] [place] [address] Color (U) YELLOW Normal Yellow [facility] Comment on above: Performed By: #### 1 [id number] ####[facility] [address] [place] [address] Epithelial cells.squamous LM.HPF (Urine sed) [#/Area] 0-2 Normal 0-2 [facility] Comment on above: Performed By: #### 1 [id number] ####[facility] [address] [place] [address] Glucose Test strip (U) [Mass/Vol] Negative Normal Negative [facility] Comment on above: Performed By: #### 1 [id number] ####[facility] [address] [place] [address] Hemoglobin Ql (U) Negative Normal Negative [facility] Comment on above: Performed By: #### 1 [id number] ####[facility] [address] [place] [address] Ketones (U) [Mass/Vol] Negative Normal Negative [facility] Comment on above: Performed By: #### 1 [id number] ####[facility] [address] [place] [address] [place].plasma/Lithi um.RBC (Bld) [Mass ratio] 0-3 Normal 0-3 [facility] Comment on above: Performed By: #### 1 [id number] ####[facility] [address] [place] [address] Nitrite Ql (U) Negative Normal Negative [facility] Comment on above: Performed By: #### 1 [id number] ####[address] [address] pH (U) 6.0 [pH] Invalid Interpretation Code 5.0-9.0 [facility] Comment on above: Performed By: #### 1 [id number] ####[address] [address] Protein (U) [Mass/Vol] Negative Normal Negative [facility] Comment on above: Performed By: #### 1 [id number] ####[address] [address] Specific gravity (U) [Rel density] >=1.030 Invalid Interpretation Code 1.005-1.030 [facility] Comment on above: Performed By: #### 1 [id number] ####[address] [address] Type of Urine collection method Clean Catch Normal [facility] Comment on above: Performed By: #### 1 [id number] ####[address] [address] Urobilinogen Qn (U) 0.2 {Mehdi'U}/dL Normal 0.0-1.0 [facility] Comment on above: Performed By: #### 1 [id number] ####[address] [address] WBC Auto Ql (U) Negative Normal Negative [facility] Comment on above: Performed By: #### 1 [id number] ####[facility] [address] [place] [address] WBC LM.HPF (Urine sed) [#/Area] 0-5 Normal 0-5 [facility] Comment on above: Performed By: #### 1 [id number] ####[facility] [address] [place] [address] URINALYSISOrdered By: Alphonso Wang on 03-24-2023 Bilirubin [...] AM) Normal Negative [facility] UA Auto SS [place].plasma/Lithi um.RBC (Bld) [Mass ratio] 0-3 /HPF Normal [...] Desc Clean Catch (03/24/23 11:15 AM) Normal [facility] UA Auto SS Urobilinogen Qn (U) 0.1636496 {Mehdi'U}/dL Normal 0.0 - 1.0 EU/dL [facility] UA Auto SS WBC Auto Ql (U) Negative (03/24/23 11:15 AM) Normal Negative [facility] UA Auto SS WBC LM.HPF (Urine sed) [#/Area] 0-5 /HPF Normal 0-5/HPF [facility] U[facility] Auto SS T3 Freeon 03-23-2023 Free T3 [Mass/Vol] 2.9 pg/mL Invalid Interpretation Code 2.0-4.4 [facility] Comment on above: Result Comment: Perf ormed at: [facility] [address] [id number] PhD Haider Barraza Performed By: #### 2 [id number], [id number], [id number] ####[facility] [address] [place] [address] US Retroperitoneal Completeo n 03-23-2023 US Retroperitoneal [...] Isidoro Taylor MD Transcribed by: RAZIA Technologist: MICHAEL Normal [facility] CHEMISTRYOrdered By: SYSTEM SYSTEM on 03-22-2023 Free T4 [Mass/Vol] 1.10 ng/dL Normal 0.58 - 1.64 ng/dL Remisol Chem TSH Qn 0.90 m[IU]/L Normal 0.34 - 5.60 mcIU/mL Remisol Chem Consent for Treatmenton Consent for Treatment [id number] #1.00TIFF Normal [facility] Free T4on 03-22-2023 Free T4 [Mass/Vol] 1.10 ng/dL Normal 0.58-1.64 [facility] Comment on above: Performed By: #### 2 [id number], [id number] ####[facility] [address] [place] [address] TSHon 03-22-2023 TSH Qn 0.90 m[IU]/L Normal 0.34-5.60 [facility] Comment on above: Performed By: #### 2 [id number], [id number], [id number] ####[facility] [address] [place] [address] C Urineon 03-11-2023 Bacteria identified Cx Nom (U) Microbiology PROCEDURE: Urine Culture [R1] SOURCE: U CleanCatch BODY SITE: COLLECTED DATE/TIME: 03/09/2023 08:03 EST RECEIVED DATE/TIME: 03/09/2023 16:49 EST START DATE/TIME: 03/09/2023 16:49 EST FREE TEXT SOURCE: Ya Wang Elizabeth L FINAL REPORTS Final Report [] Verified Date/Time: [...] Locations R1: This test was performed at: [facility], [address] [place] [address], [address] , , Normal [facility] Comment on above: Performed By: #### 2 [id number] ####[facility] [address] [place] [address] Family Medicine Office/Clini c Noteon 03-11-2023 Family [...] due to her gallbladder. 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 She is able to schedule [...] shows: Negat (more content not included)... Normal [facility] Comment on above: Result Comment: Elec tronically Signed By: Ya Wang\.br\Date and Time Signed: 03/11/23 06:06 EST\.br\Electronically Co-Signed By: Annetta Blackburn\.br\Date and Time Co-Signed: 03/09/23 12:22 EST Ambulatory Visit Summaryon 1 05-10-2022 Ambulatory Visit Summary YANA CHURCH :2000 Visit Date:03/09/2023 Ambulatory Visit Instructions Your Diagnosis BMI 21.0-21.9, adult Feeling of incomplete bladder emptying Other cystitis with hematuria Hypothyroidism Tests Performed Urnls Dip Stick Auto w/o Microscopy POC [address] Your Care Team Attending Physician - Ya Wang Primary Care Physician - Ya Wang This Is Your Medications List Misc Prescription (Glucose Test Strips) Mis Prescription (Lancets) cephalexin (Keflex 500 mg Cap) [...] 10:00 AM EDT With: Ya Wang Where: [facility] Normal Recurrent UTI (urinary tract infection), pp_set_radiology_ subspecialty, [facility]\.br\ Medications\.br\ What How Much When Why Instructions\.br\ New cephalexin (Keflex 500 mg Cap) 1 Capsules By Mouth 4 times a day Feeling of incomplete bladder emptying Recurrent UTI (urinary tract infection) Duration: 7 Days Pickup at [facility]\.br\ New phenazopyridine (Pyridium 200 mg Tab) 1 Tablets By Mouth 3 times a day Feeling of incomplete bladder emptying Recurrent UTI (urinary tract infection) Duration: 3 Days Pickup at [facility]\.br\ Unchanged levothyroxine (Synthroid 112 mcg Tab) [...] instructions Prior to colonoscopy. \.br\ Pharmacy Information\.br\ [facility]: [address] [place], [place] [id number] [phone]\.br\ Test Results\.br\ Urnls Dip Stick Auto w/o Microscopy POC 13619 (03/09/2023)\.br\ Bilirubin Urine Dipstick - Negative\.br\ Blood Urine Dipstick - Trace-intact\.br\ Glucose Urine Dipstick - Negative\.br\ Ketones Urine Dipstick - Negative\.br\ Leukocytes Urine Dipstick - Trace\.br\ Nitrite Urine Dipstick - Negative\.br\ Protein Urine Dipstick - Negative\.br\ Specific Mccrory Urine Dipstick - 1.020\.br\ Urine Appearance Urine [...] including vitamins, herbs, eye drops, creams, and pqgs-xzm-vaffsiv medicines.\.br\ ? \.br\ Whether you are or [...] nerves are communicating with your muscles.\.br\ What [facility] Patient Educationon 03-09-20 Patient Education Endocrinology Hypothyroidism [...] Follow these instructions at home: ? Take mpek-ikc-tlepefk and prescription medicines only as told by [...] provider. Document Revised: 03/09/2022 Document Reviewed: 03/09/2022 [employer] Patient Education ? 2022 [employer] Obstetrics and Gynecology Urinary Tract Infection, Adult A urinary tract infection (UTI) is an infection of any part of the urinary tract. The urinary tract includes the kidneys, ureters, bladder, and urethra. These organs make, store, and get rid of urine in the body. An upper UTI affects the ureters and kidneys. A lower UTI affects the bl (more content not included)... Normal [facility] Physician Referralon 023 Physician Referral [phone] [id number] #[email or web address] Normal [facility] Provider Letteron 03-02-2023 Provider Letter March 02, 2023 YANA CHURCH [address] [place] [id number] : [address] Clay Waters is know on your insurance & we are able to schedule your EGD & Colonoscopy. Please call us at [phone] [facility] to schedule your procedure. Thank you for your prompt attention to this matter. Sincerely, [facility] Reminderson 03-02-2023 Reminders - From: Erum Gold To: [facility] - Reminders/Recalls; Sent: 11/30/2022 12:34:03 EDT Show up: 11/30/2022 12:34:00 EDT Subject: Ambulatory Reminder [employer] Reminder/Recall Call pt and scheduled EGD and Colonoscopy with Dr. Williamson once [employer] is approved. - From: Rusty Alfred ([facility] - Reminders/Recalls) To: Yue Perez; Sent: 12/28/2022 [...] to patient to call office to schedule [facility] C Urineon 02-23-2023 Bacteria identified Cx Nom [...] Locations R1: This test was performed at: [facility], [address] [place] [address], [facility]- , , Normal [facility] Comment on above: Performed By: #### [id number] ####[facility] [id number] [place] [address] Family Medicine Office/Clini c Noteon 02-21-2023 Family [...] color was orange in appearance due to mwfl-cnc-krxfvfw meds she was taking, normal urobilinogen pH [...] day(s), # 10 cap(s), Refills(s) 0, Pharmacy: [facility], 166, cm, 02/21/23 13:06:00 EST, Height/Length Dosing, 58.6, kg, 02/21/23 13:06:00 EST, Weight Dosing phenazopyridine, 200 mg = 1 tab(s), Oral, TID, X 3 day(s), # 9 tab(s), Refills(s) 0, Pharmacy: [facility], 166, cm, 02/21/23 13:06:00 EST, Height/Length Dosing, 58.6, kg, 02/21/23 13:06:00 EST, Weight Dosing Urine Culture Urnls Dip Stick Auto w/o Microscopy POC 43515 2. Acute cystitis (N30.00: Acute cystitis without hematuria) #1 3. Constipation in female (K59.00: Constipation, unspecified) improving. occasional Colace OTC and Miralax 4. Hemorrhoids (K64.9: Unspecified hemorrhoids) improving, stable 5. Hypothyroidism (E03.9: Hypothyroidism, unspecified) Chronic Stable with 112 mcg daily of Synthroid _ control Weight is stable Asymptomatic- noteable tachycardia today Du (more content not included)... Normal [facility] Comment on above: Result Comment: Elec tronically Signed By: Ya Wang\.br\Date and Time Signed: 02/21/23 13:39 EST Patient [...] these instructions at home: Medicines ? Take rquf-jwi-xfkjsgh and prescription medicines only as told by [...] provider. Document Revised: 10/17/2020 Document Reviewed: 10/17/2020 [employer] Patient Education ? 2022 Code[employer]ike. [facility] Ambulatory Visit Summaryon 0 11-30-2022 Ambulatory [...] Follow-Up Appointments Tuesday 1:00 PM EST With: Ya Wang Where: [facility] Gastroenterology Office/Clin ic Noteon 11-30-2022 Gastroenterology Office/Clinic Note Chief Complaint constipation HPI Staff Patient is a 22 year old female who was referred by Ya COOK-C for: occasional hemorrhoids- small bleeding with constipation, [...] Refill(s) 0, Prior to colonoscopy., [id number], 166, cm, 11/30/22 12:12:00 EDT, Height/Length Dosing, [...] Hypothyroidism Left (more content not included)... Normal [facility] Comment on above: Result Comment: Elec tronically [...] Bulgur wheat. Millet. Quinoa. Bran muffins. Popcorn. [place] wafer crackers. Meats and other proteins [place] beans, kidney beans, and díaz beans. Soybeans. [...] Cream cheese. Sour cream. Fats and oils [place]. Beverages Soft drinks. Other foods Cakes and [...] provider. Document Revised: (more content not included)... Normal [facility] Pre-Certification Formon Pre-Certification Form [id number] 1#1.00CD:127 [facility] Family Medicine Office/Clini c Noteon 11-11-2022 [...] visit we encourage proper diet and exercise shux-yng-vddnjog MiraLAX or Colace with Preparation H ekvi-yfb-gjvhakk, bleeding has stopped, blood noted on toilet [...] Rectal exam was performed, I did offer supervisor powder and primer canning but patient declined, external anus is normal [...] length of time on toilet, sitz bath's, icsf-iws-rfrxmdj medications and suppositories and creams Hydrocortisone lidocaine with applicator gel ordered today to use twice daily Referral for GI referral placed today Ordered: hydrocortisone-lidoc letty topical, 1 carmen, Rectal, BID, 60 EA, Refill(s) 1, DiscRECESS. #37, 166, cm, 11/11/22 9:28:00 EDT, Height/Length Dosing, 59.4, kg, 11/11/22 9:28:00 EDT, Weight Dosing [facility] Internal Ambulatory Referral 2. Hypothyroidism (E03.9: Hypothyroidism, [...] azelastine ophthalmic, (more content not included)... Normal [facility] Comment on above: Result Comment: Elec tronically Signed By: Ya Wang.irvin\Date and Time Signed: 11/11/22 09:53 EDT Patient [...] serving. ? Talk with a diet and ehs specialist (dietitian) if you have questions about specific [...] Bulgur wheat. Millet. Quinoa. Bran muffins. Popcorn. [place] wafer crackers. Meats and other proteins [place], kidney, and díaz beans. Soybeans. Split peas. [...] Cream cheese. Sour cream. Fats and oils [place]. Beverages Soft drinks. Other foods Cakes and [...] 03/07/2006 Document Revised: 01/09/2018 Document Reviewed: 01/09/2018 [employer] Patient Education ? 2020 Code[employer]ike. Gastroenterology H (more content not included)... Normal [facility] Ambulatory Visit Summaryon 0 10-08-2022 Ambulatory Visit Summary CELIOSANTIYANA MONTENEGRO :2000 Visit Date:10/08/2022 Ambulatory Visit Instructions Your [...] f/u for hypothyroid, weight loss Where: [address], [address] [address]- Business (1) You Need to Complete the Following Anti-thyroid Abys, Blood, Routine collect, 10/08/22, Order for future visit, Lab Collect, Weight loss Invalid Interpretation Code Hypothyroidism [facility] Auto Diffon 10-08-2022 Basophils/100 WBC (Bld) 1.1 % Normal 0.0-2.0 [facility] Comment on above: Order Comment: Order Added by Discern Expert. Performed By: #### 2 804115, [id number], 56088752, 1470826, 0880201 ####[facility] [address] [place] [address] Basophils/Leukocytes Auto (Bld) [Pure # fraction] 0.1 E9/L Normal 0.0-0.2 [facility] Comment on above: Order Comment: Order Added by Discern Expert. Performed By: #### 2 937682, 96133475, 76857756, 4952766, 3761773 ####[facility] [address] [place] [address] Eosinophils/100 WBC (Bld) 1.2 % Normal 0.0-8.0 [facility] Comment on above: Order Comment: Order Added by Discern Expert. Performed By: #### 2 583164, 55557053, 53504443, 9075061, 0401555 ####[facility] [address] [place] [address] Eosinophils/Leukocyt es Auto (Bld) [Pure # fraction] 0.1 E9/L Normal 0.0-0.5 [facility] Comment on above: Order Comment: Order Added by Discern Expert. Performed By: #### 2 119814, 77905918, 88755050, 1273011, 6239459 ####[facility] [address] [place] [address] Lymphocytes/100 WBC (Bld) 41.0 % Normal 14.0-50.0 [facility] Comment on above: Order Comment: Order Added by Discern Expert. Performed By: #### 2 961097, 69562930, 39826738, 0931690, 8197111 ####[facility] [address] [place] [address] Lymphocytes/Leukocyt es Auto (Bld) [Pure # fraction] 2.3 E9/L Normal 1.0-4.0 [facility] Comment on above: Order Comment: Order Added by Elle Expert. Performed By: #### 2 197128, 72341998, 65901037, 5137920, 1032098 ####[address] [address] Monocytes/100 WBC (Bld) 5.8 % Normal 4.0-14.0 [facility] Comment on above: Order Comment: Order Added by Discern Expert. Performed By: #### 2 406263, 77128186, 24249644, 1835114, 9900396 ####[address] [address] Monocytes/Leukocytes Auto (Bld) [Pure # fraction] 0.3 E9/L Normal 0.2-1.0 [facility] Comment on above: Order Comment: Order Added by Elle Expert. Performed By: #### 2 609650, 04387528, 55243959, 7805301, 9921776 ####[address] [address] Neutrophils/100 WBC (Bld) 50.9 % Normal 36.0-75.0 [facility] Comment on above: Order Comment: Order Added by Elle Expert. Performed By: #### 2 553290, 99325992, 50455893, 3284807, 2398892 ####[address] [address] Neutrophils/Leukocyt es Auto (Bld) [Pure # fraction] 2.8 E9/L Normal 2.0-7.5 [facility] Comment on above: Order Comment: Order Added by Discern Expert. Performed By: #### 2 614759, 71224360, 60259175, 6750166, 9251364 ####[address] [place] [address] CBC w/ Auto Diffon 3 Erythrocyte distribution width (RBC) [Ratio] 12.6 % Normal 10.9-14.2 [facility] Comment on above: Performed By: #### 2 739543, 64310896, 96386576, 6978886, 4059892 ####[address] [place] [address] Hematocrit (Bld) [Volume fraction] 40.4 % Normal 34.0-46.0 [facility] Comment on above: Performed By: #### 2 848197, 30703863, 54896891, 4478524, 2839527 ####[address] [place] [address] Hemoglobin (Bld) [Mass/Vol] 14.1 g/dL Normal 12.0-16.0 [facility] Comment on above: Performed By: #### 2 956773, 97305298, 62160860, 1526978, 5512097 ####[address] [place] [address] MCH (RBC) [Entitic mass] 32.1 pg Normal 27.0-34.0 [facility] Comment on above: Performed By: #### 2 988006, 84574453, 99596648, 4798332, 6510245 ####[facility] [address] [place] [address] MCHC (RBC) [Mass/Vol] 34.8 g/dL Normal 31.4-36.0 [facility] Comment on above: Performed By: #### 2 889209, 70508712, 51264914, 9301907, 0715659 ####[address] [place] [address] MCV (RBC) [Entitic vol] 92.1 fL Normal 80.0-100.0 [facility] Comment on above: Performed By: #### 2 058873, 02317968, 76975274, 8564029, 8553804 ####[address] [place] [address] Platelet mean volume (Bld) [Entitic vol] 9.1 fL Normal 6.4-10.8 [facility] Comment on above: Performed By: #### 2 055815, 75345975, 18182330, 3980058, 3688659 ####[address] [address] Platelets (Bld) [#/Vol] 238.0 E9/L Normal 150.0-500.0 [facility] Comment on above: Performed By: #### 2 694780, 10342699, 07348921, 4336649, 4500072 ####[address] [address] RBC (Bld) [#/Vol] 4.4 E12/L Normal 4.3-5.9 [facility] Comment on above: Performed By: #### 2 076890, 70548780, 03229846, 3354155, 5278359 ####[address] [address] WBC corrected for nucl RBC Auto (Bld) [#/Vol] 5.6 E9/L Normal 4.0-11.0 [facility] Comment on above: Performed By: #### 2 171734, 83768084, 05995024, 0192722, 6439722 ####[address] [place] [address] CMPon 10-08-2022 Albumin [Mass/Vol] 4.7 g/dL Normal 3.3-5.0 [facility] Comment on above: Performed By: #### 2 157929, 49761835, 12848676, 2737659, 5747256 ####[address] [place] [address] Albumin/Globulin (S) [Mass conc ratio] 1.5 Normal 1.1-2.2 [facility] Comment on above: Performed By: #### 2 098324, 51476620, 78322082, 1768056, 3822443 ####[facility] [address] [place] [address] ALP [Catalytic activity/Vol] 42 Int._Unit/L Normal 21-98 [facility] Comment on above: Performed By: #### 2 695951, 67260734, 73968902, 8985945, 1514817 ####[facility] [address] [place] [address] ALT No additional P-5'-P [Catalytic activity/Vol] 15 Int._Unit/L Normal 6-46 [facility] Comment on above: Performed By: #### 2 006948, 38563170, 67822030, 0691857, 1927308 ####[facility] [address] [place] [address] Anion gap [Moles/Vol] 13 mmol/L Normal 6-16 [facility] Comment on above: Performed By: #### 2 189163, 43869694, 93111890, 3196793, 5367037 ####[facility] [address] [place] [address] AST [Catalytic activity/Vol] 22 Int._Unit/L Normal 5-43 [facility] Comment on above: Performed By: #### 2 666505, 61416737, 85187923, 5361543, 5977211 ####[facility] [address] [place] [address] Bilirubin [Mass/Vol] 0.5 mg/dL Normal 0.0-1.1 [facility] Comment on above: Performed By: #### 2 659784, 47873589, 19697173, 6063192, 8695996 ####[facility] [address] [place] [address] Calcium [Mass/Vol] 9.4 mg/dL Normal 8.9-11.1 [facility] Comment on above: Performed By: #### 2 350032, 84600605, 70503139, 1235306, 8813889 ####[facility] [address] [place] [address] Chloride [Moles/Vol] 107 mmol/L Normal 101-111 [facility] Comment on above: Performed By: #### 2 020985, 38732510, 17037050, 1517533, 0401030 ####[facility] [address] [place] [address] CO2 [Moles/Vol] 24 mmol/L Normal 21-31 [facility] Comment on above: Performed By: #### 2 473627, 62640932, 70009398, 5056154, 8187538 ####[facility] [address] [place] [address] Creatinine [Mass/Vol] 0.7 mg/dL Normal 0.5-1.3 [facility] Comment on above: Performed By: #### 2 575139, 56093899, 31533494, 1681529, 2988181 ####[facility] [address] [place] [address] Globulin (S) [Mass/Vol] 3.2 g/dL Normal 1.4-4.0 [facility] Comment on above: Performed By: #### 2 946664, 52343523, 27383136, 6831879, 0255210 ####[facility] [address] [place] [address] Glucose [Mass/Vol] 105 mg/dL Normal 55-199 [facility] Comment on above: Result Comment: If t his glucose result represents a fasting glucose, interpretation should refer to the following reference range: 55-99 mg/dL Performed By: #### 2 852702, 76337891, 52280577, 9258018, 8301790 ####[facility] [address] [place] [address] Potassium [Moles/Vol] 3.9 mmol/L Normal 3.5-5.3 [facility] Comment on above: Performed By: #### 2 515165, 39383504, 12793465, 3663416, 2689494 ####[facility] [address] [place] [address] Protein [Mass/Vol] 7.9 g/dL High 6.0-7.8 [facility] Comment on above: Performed By: #### 2 289133, 41566987, 81661176, 7390981, 3894009 ####[facility] [address] [place] [address] Sodium [Moles/Vol] 140 mmol/L Normal 135-145 [facility] Comment on above: Performed By: #### 2 400733, 69680982, 24512424, 7052476, 7137566 ####[facility] [address] [place] [address] Urea nitrogen [Mass/Vol] 17 mg/dL Normal 5-21 [facility] Comment on above: Performed By: #### 2 788174, 98979457, 28457280, 0999309, 6680543 ####[facility] [address] [place] [address] Urea nitrogen/Creatinine [Mass ratio] 24 No Units High 10-20 [facility] Comment on above: Performed By: #### 2 934737, 10375471, 71099457, 7745307, 5979537 ####[facility] [address] [place] [address] Consent for Treatmenton 09-19 Consent for Treatment [id number] #1.00CD:127 Normal [facility] Medicine Office/Clini c Noteon 10-08-2022 Family Medicine Office/Clinic [...] Dr Marshall scheduled for nov 2022 Specialists: Medical Support Specialist: Bird Álvarez in [place]- contacts most of the time, Dentist: ROSARIO - no issues- Dr Nila MARSHALL- [facility] Review of Systems PHQ Score Initial Depression [...] Pap testing and gynecologic screenings 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 Discussed self breast exams and other health [...] and exercise increasing. Patient encouraged to use rmab-pof-ocesubh MiraLAX or Colace, encouraged Preparation H hjzw-sqf-teenhcw topical treatments if needed. \ Follow-up only if needed. Patient only having minimal complaints 3. Constipation in female (K59.00: Constipation, unspecified) see #3 4. BMI 20.0-20.9, ad (more content not included)... Normal [facility] Comment on above: Result Comment: Elec tronically Signed By: Ya Wang.irvin\Date and Time Signed: 10/08/22 16:30 EDT Patient [...] instructions at home: General instructions ? Take dhvz-rpx-ethorkx and prescription medicines only as told by your health care provider. ? Monitor your blood glucose as told by your health care provider. ? If you drink alcohol: ? Limit how much you have to: ? 0?1 dr (more content not included)... Normal [facility] TSH With T4fr Reflexon 10-08 TSH Qn 0.58 m[IU]/L Normal 0.34-5.60 [facility] Comment on above: Performed By: #### 2 892488, 14610851, 22086089, 4238060, 4611507 ####[facility] [address] [place] [address] eGFRon 10-08-2022 GFR/1.73 sq M.predicted among non-blacks MDRD (S/P/Bld) [Vol rate/Area] 124 mL/min/1.73 m2 Normal >=59 [facility] Comment on above: Order Comment: Order added by Discern Expert. Result Comment: Infrastructure Director erlin kidney disease could be indicated at eGFR's of less than 60 mL/min/1.73m2. Kidney failure is indicated at less than 15 mL/min/1.73m2. Performed By: #### 2 016257, 20126991, 47182382, 0512320, 3112379 ####[facility] [address] [place] [address] PAP ACOG PANEL 2: 21 to 29on 10-23-2021 . . Normal [facility] Comment on above: Performed By: #### C BC #### [facility] [address] [place], [place] [address] Dr. Rima Charles Age Gdln ACOG Testing 19- Normal [facility] Comment on above: Performed By: #### C BC #### [facility] [address] [place] [address] [address] Rima Charles DIAGNOSIS: Comment Normal [facility] Comment on above: Result Comment: NEGA TIVE FOR INTRAEPITHELIAL LESION OR MALIGNANCY. THIS SPECIMEN WAS RESCREENED PART OF OUR [employer]BING INSTRUCTOR PROGRAM. Performed By: #### C BC #### [facility] [address] [address] [address] Rima Charles Methodology: Comment Normal [facility] Comment on above: Result Comment: This liquid based ThinPrep(R) pap test was screened with the use of an image guided system. Performed By: #### C BC #### [facility] [address] [address] [address] Rima Charles Note: Comment Normal [facility] Comment on above: Result Comment: The Pap smear is a screening test designed to aid in the detection of premalignant and malignant conditions of the uterine cervix. It is not a diagnostic procedure and should not be used as the sole means of detecting cervical cancer. Both false-positive and false-negative reports do occur. . Performed By: #### C BC #### [facility] [address] [address] [address] Rima Charles Performed by: Comment Normal [facility] Comment on above: Result Comment: Prince Cagle, Boilermaker Pipe Fitter (ASCP) Performed By: #### C BC #### [facility] [address] [place] [address] Dr. Rima Charles QC reviewed by: Comment Normal [facility] Comment on above: Result Comment: Amanda Morejon, Supervisory Boilermaker Pipe Fitter (ASCP) Performed By: #### C BC #### [facility] [address] [place] [address] Dr. Rima Charles Reflex Criteria: Comment Normal [facility] Comment on above: Result Comment: The HPV DNA reflex criteria were not met with this specimen result therefore, no HPV testing was performed. . Performed By: #### C BC #### [facility] [address] [place] [address] Dr. Rima Charles Specimen adequacy: Comment Normal [facility] Comment on above: Result Comment: Sati sfactory for evaluation. Endocervical and/or squamous metaplastic cells (endocervical component) are present. Areas of partially obscuring blood are present. Performed By: #### C BC #### [facility] [address] [place] [address] Dr. Rima Charles FREE T4on 10-17-2021 Free T4 [Mass/Vol] 1.01 ng/dL Normal 0.76-1.46 [facility] Comment on above: Performed By: #### F T4 #### [facility] [address] [place] [address] Dr. Rima Charles TSHon 10-17-2021 TSH 4.997 uIU/mL Critically high 0.358-3.740 [facility] Comment on above: Performed By: #### T SH #### [facility] [address] [place] [address] Dr. Rima Charles VAGINITIS/VAGINOSIS DNA PROB Esteban 07-15-2021 Tamara species Negative Normal Negative [facility] Comment on above: Performed By: #### C BC #### [facility] [address] [place] [address] Dr. Rima Charles Gardnerella vaginalis Negative Normal Negative [facility] Comment on above: Performed By: #### C BC #### [facility] [address] [place] [address] Dr. Rima Charles Trichomonas vaginalis Negative Normal Negative [facility] Comment on above: Performed By: #### C BC #### [facility] [address] [place] [address] Dr. Rima Charles CHLAMYDIA/GONOCOCCUS FRANSISCO (SW AB/URINE/PAPon 05-09-2021 Chlamydia trachomatis, FRANSISCO Negative Normal Negative [facility] Comment on above: Performed By: #### C BC #### [facility] [address] [place] [address] Dr. Rima Charles Neisseria gonorrhoeae, FRANSISCO Negative Normal Negative [facility] Comment on above: Performed By: #### C BC #### [facility] [address] [place] [address] Dr. Rima Charles VAGINITIS/VAGINOSIS DNA PROB Esteban 05-08-2021 Tamara species Negative Normal Negative [facility] Comment on above: Performed By: #### V AGINT #### [facility] [address] [place] [address] Dr. Rima Charles Gardnerella vaginalis Negative Normal Negative [facility] Comment on above: Performed By: #### V AGINT #### [facility] [address] [address] [address] Rima Charles Trichomonas vaginalis Negative Normal Negative [facility] Comment on above: Performed By: #### V AGINT #### [facility] [address] [address] [address] Rima Charles TSHon 02-24-2021 TSH 4.494 uIU/mL Normal 0.470-4.680 [facility] Comment on above: Performed By: #### C BC #### [facility] [address] [place] [address] Dr. Rima Charles TSH RANGE SEE BELOW Normal [facility] Comment on above: Result Comment: <0.3 4 UIU/ml HYPERTHYROID 0.34-5.60 UIU/ml EUTHYROID >5.60 UIU/ml HYPOTHYROID Performed By: #### C BC #### [facility] [address] [place] [address] Dr. Rima Charles AFP MATERNAL FOR SPINA BIFID Aon 2021 AFP MoM 0.98 Normal [facility] Comment on above: Performed By: #### A FPMAT #### [facility] [address] [place] [address] Dr. Rima Charles AFP Value 36.3 ng/mL Normal [facility] Comment on above: Performed By: #### A FPMAT #### [facility] [address] [place] [address] Dr. Rima Charles AFP, Serum for Spina Bifida Report Normal [facility] Comment on above: Performed By: #### A FPMAT #### [facility] [address] [place] [address] Dr. Rima Charles Comment Comment Normal [facility] Comment on above: Result Comment: Kelly Moon, Ph.D., [facility] Director . References: Available Upon Request. . Multiples Of Median Cutoffs For AFP Elevations Gorman 2.5 Black 2.8 IDD 2.0 Twins 4.5 Abbreviation Definitions IDD - Insulin Dep Diabetes OSBR - Open Spina Bifida Risk . For further inquiries contact [facility] at [phone]. Performed By: #### A FPMAT #### [facility] [address] [address] [address] Rima Whitt Age Collection Date 16.0 weeks Normal [facility] Comment on above: Performed By: #### A FPMAT #### [facility] [address] [address] [address] Rima Charles Gestat, Age Based on LMP Normal [facility] Comment on above: Result Comment: Reca lculations are not recommended when gestational dating by LMP and ultrasound are within 10 days. Performed By: #### A FPMAT #### [facility] [address] [address] [address] Rima Charles Insulin Dep Diabetes No Normal [facility] Comment on above: Performed By: #### A FPMAT #### [facility] [address] [place] [address] Dr. Rima Charles Interpretation Comment Normal [facility] Comment on above: Result Comment: Inte rpretation: [...] Customer Services to discuss available options. [employer] recommends amniocentesis be offered to women age 35 and older. Performed By: #### A FPMAT #### [facility] [address] [address] [address] Rima Charles Maternal Age at RENATO 21.[address] [facility] Comment on above: Performed By: #### A FPMAT #### [facility] [address] [address] [address] Rima Charles Multiple Gestation No Normal [facility] Comment on above: Performed By: #### A FPMAT #### [facility] [address] [address] [address] Rima Charles [place] [address] [place] [address] Normal [facility] Comment on above: Performed By: #### A FPMAT #### [facility] [address] [address] [address] Rima Charles PDF . Normal [facility] Comment on above: Performed By: #### A FPMAT #### [facility] [address] [place] [address] Dr. Rima Charles Race Normal [facility] Comment on above: Performed By: #### A FPMAT #### [facility] [address] [place] [address] Dr. Rima Charles Test Results: Negative Normal [facility] Comment on above: Performed By: #### A FPMAT #### [facility] [address] [place] [address] Dr. Rima Charles HEP B SURFACE ANTIGEN SCREEN on 12-10-2020 HBsAg Screen Negative Normal Negative [facility] Comment on above: Performed By: #### H BSANS #### [facility] [address] [place] [address] Dr. Rima Charles HEPATITIS C ANTIBODYon 12-10 Hep C Virus Ab <0.1 Normal 0.0-0.9 [facility] Comment on above: Result Comment: Nega tive: < 0.8 Indeterminate: 0.8 - 0.9 Positive: > 0.9 . The CDC recommends that a positive HCV antibody result be followed up with a HCV Nucleic Acid Amplification test (094930). Performed By: #### H CV #### [facility] [address] [place] [address] Dr. Rima Charles HIV 1 AND 2 WITH REFLEXon HIV Screen 4th Generation wRfx Non-Reactive Normal Non Reactive [facility] Comment on above: Performed By: #### H IV12 #### [facility] [address] [place] [address] Dr. Rima Charles RPR QUANTon 12-10-2020 Rapid Plasma Reagin, Quant Non-Reactive Normal NonRea<1:1 [facility] Comment on above: Performed By: #### C BC #### [facility] [address] [place] [address] Dr. Rima Charles RUBELLA AB IGGon 12-10-2020 Rubella Antibodies, IgG 2.33 index Normal Immune >0.99 [facility] Comment on above: Result Comment: Non- immune <0.90 Equivocal 0.90 - 0.99 Immune >0.99 Performed By: #### R UBIGG #### [facility] [address] [place] [address] Dr. Rima Charles CBC AUTO DIFFon 12-09-2020 BASO # 0.0 103/ul Normal 0.0-0.1 [facility] Comment on above: Performed By: #### C BC #### [facility] [address] [place] [address] Dr. Rima Charles Basophils/100 WBC (Bld) 0.4 % Normal 0.2-2.0 [facility] Comment on above: Performed By: #### C BC #### [facility] [address] [place] [address] Dr. Rima Charles EO # 0.0 103/ul Normal 0.0-0.7 [facility] Comment on above: Performed By: #### C BC #### [facility] [address] [place] [address] Dr. Rima Charles Eosinophils/100 WBC (Bld) 0.6 % Critically low 0.9-7.0 [facility] Comment on above: Performed By: #### C BC #### [facility] [address] [place] [address] Dr. Rima Charles Erythrocyte distribution width (RBC) [Ratio] 12.0 % Normal 11.0-15.0 [facility] Comment on above: Performed By: #### C BC #### [facility] [address] [place] [address] Dr. Rima Charles Hematocrit (Bld) [Volume fraction] 37.5 % Normal 36.0-48.0 [facility] Comment on above: Performed By: #### C BC #### [facility] [address] [place] [address] Dr. Rima Charles Hemoglobin (Bld) [Mass/Vol] 13.2 g/dL Normal 12.0-16.0 [facility] Comment on above: Performed By: #### C BC #### [facility] [address] [place] [address] Dr. Rima Charles IG # 0.02 10e3/ul Normal 0.00-0.03 [facility] Comment on above: Performed By: #### C BC #### [facility] [address] [place] [address] Dr. Rima Charles IG % 0.3 % Normal 0.0-0.5 [facility] Comment on above: Performed By: #### C BC #### [facility] [address] [place] [address] Dr. Rima Charles LYMPH # 1.4 103/ul Normal 1.2-3.8 [facility] Comment on above: Performed By: #### C BC #### [facility] [address] [place] [address] Dr. Rima Charles Lymphocytes/100 WBC (Bld) 20.2 % Critically low 20.5-60.0 [facility] Comment on above: Performed By: #### C BC #### [facility] [address] [place] [address] Dr. Rima Charles MANUAL DIFF REQ NO Normal [facility] Comment on above: Performed By: #### C BC #### [facility] [address] [place] [address] Dr. Rima Charles MCH (RBC) [Entitic mass] 33.2 pg Normal 26.7-34.0 [facility] Comment on above: Performed By: #### C BC #### [facility] [address] [place] [address] Dr. Rima Charles MCHC (RBC) [Mass/Vol] 35.2 g/dL Normal 29.9-35.2 [facility] Comment on above: Performed By: #### C BC #### [facility] [address] [place] [address] Dr. Rima Charles MCV (RBC) [Entitic vol] 94.5 fL Normal 81.0-99.0 [facility] Comment on above: Performed By: #### C BC #### [facility] [address] [place] [address] Dr. Rima Charles MONO # 0.4 103/ul Normal 0.3-0.8 [facility] Comment on above: Performed By: #### C BC #### [facility] [address] [place] [address] Dr. Rima Charles Monocytes/100 WBC (Bld) 6.1 % Normal 1.7-12.0 [facility] Comment on above: Performed By: #### C BC #### [facility] [address] [place] [address] Dr. Rima Charles NEUT # 5.1 103/ul Normal 1.4-6.5 [facility] Comment on above: Performed By: #### C BC #### [facility] [address] [place] [address] Dr. Rima Charles Neutrophils/100 WBC (Bld) 72.4 % Normal 43.0-75.0 [facility] Comment on above: Performed By: #### C BC #### [facility] [address] [place] [address] Dr. Rima Charles Platelet mean volume (Bld) [Entitic vol] 11.2 fL Normal 9.5-13.5 [facility] Comment on above: Performed By: #### C BC #### [facility] [address] [place] [address] Dr. Rima Charles PLT 221 103/ul Normal 150-450 [facility] Comment on above: Performed By: #### C BC #### [facility] [address] [place] [address] Dr. Rima Charles RBC 3.97 106/ul Critically low 4.20-5.40 [facility] Comment on above: Performed By: #### C BC #### [facility] [address] [place] [address] Dr. Rima Charles WBC 7.1 103/ul Normal 4.0-11.0 [facility] Comment on above: Performed By: #### C BC #### [facility] [address] [place] [address] Dr. Rima Charles CULTURE URINEon 12-09-2020 CULTURE URINE Culture Observations: No growth Normal [facility] Comment on above: Performed By: #### C BC #### [facility] [address] [place] [address] Dr. Rima Charles GLYCOHEMOGLOBIN A1Con 2020 ADA RECOMMENDATION ADA THERAPEUTIC TARGET 6.0 - 7.0 ACTION SUGGESTED > 7.0 Normal [facility] Comment on above: Performed By: #### A 1C #### [facility] [address] [place] [address] Dr. Rima Charles Glucose [Mass/Vol] 111 mg/dL Normal [facility] Comment on above: Performed By: #### A 1C #### [facility] [address] [place] [address] Dr. Rima Charles HbA1c (Bld) [Mass fraction] 5.5 % Normal <=6.0 [facility] Comment on above: Performed By: #### A 1C #### [facility] [address] [place] [address] Dr. Rima Charles TAHIR BOX TEST PT SEND OUTo n 12-09-2020 SENT TO REF LAB 12/09/20 Normal [facility] Comment on above: Performed By: #### C BC #### [facility] [address] [place] [address] Dr. Rima Charles TSHon 12-09-2020 TSH 2.651 uIU/mL Normal 0.470-4.680 [facility] Comment on above: Performed By: #### C BC #### [facility] [address] [place] [address] Dr. Rima Charles TSH RANGE SEE BELOW Normal [facility] Comment on above: Result Comment: <0.3 4 UIU/ml HYPERTHYROID 0.34-5.60 UIU/ml EUTHYROID >5.60 UIU/ml HYPOTHYROID Performed By: #### C BC #### [facility] [address], [place] [address] Dr. Rima Charles TYPE AND SCREENon 12-09-2020 TYPE AND SCREEN Negative Normal [facility] Comment on above: Performed By: #### C BC #### [facility] [address] [address] [address] Rima Charles US PREG TVon 12-02-2020 [...] by: LILIANE POPE Date: 2020-12-02 09:34 Normal [facility] Vital Signs Date Time Vital Sign Value Performing Clinician Facility 09-17-2024 11:10-0400 Body mass index (BMI) [Ratio] 22.1 kg/m2 [employer] Work Phone: [facility] 09-17-2024 11:10-0400 Body weight 60.24 kg [employer] Work Phone: [facility] 09-17-2024 11:10-0400 Diastolic blood pressure 70 mm[Hg] [employer] Phone: [facility] 09-17-2024 11:10-0400 Systolic blood pressure 112 mm[Hg] [employer] Work Phone: [facility] 08-17-2024 10:00-0400 Body mass index (BMI) [Ratio] 22.86 kg/m2 [facility] Nurse [facility] 08-17-2024 10:00-0400 Body weight 62.32 kg [facility] Nurse [facility] 08-17-2024 10:00-0400 Diastolic blood pressure 78 mm[Hg] [facility] Nurse [facility] 08-17-2024 10:00-0400 Systolic blood pressure 120 mm[Hg] [facility] Nurse [facility] 12-12-2023 14:19-0400 Body mass index (BMI) [Ratio] 21.15 kg/m2 Santosh Joanna DO Work Phone: [facility] 12-12-2023 14:19-0400 Body weight 57.66 kg Santosh Joanna DO Work Phone: [facility] 12-12-2023 14:19-0400 Diastolic blood pressure 62 mm[Hg] Santosh Joanna DO Work Phone: [facility] 12-12-2023 14:19-0400 Systolic blood pressure 104 mm[Hg] Santosh Joanna DO Work Phone: [facility] 08-08-2023 15:43-0400 Blood Pressure Location Ya Thornton [facility] 08-08-2023 15:43-0400 Diastolic blood pressure 60 mm[Hg] Ya Thornton [facility] 08-08-2023 15:43-0400 Heart rate 103 /min Ya Thornton [facility] 08-08-2023 15:43-0400 Respiratory rate 18 /min Ya Thornton [facility] 08-08-2023 15:43-0400 SaO2% (BldA) [Mass fraction] 100 % Ya Thornton [facility] 08-08-2023 15:43-0400 Systolic blood pressure 124 mm[Hg] Ya Thornton [facility] 03-09-2023 07:21-0500 Blood Pressure Location Ya Thornton [facility] 03-09-2023 07:21-0500 Body temperature 97.52 [degF] Ya Thornton [facility] 03-09-2023 07:21-0500 Diastolic blood pressure 60 mm[Hg] Ya Thornton [facility] 03-09-2023 07:21-0500 Heart rate 91 /min Ya Thornton [facility] 03-09-2023 07:21-0500 Respiratory rate 18 /min Ya Thornton [facility] 03-09-2023 07:21-0500 SaO2% (BldA) [Mass fraction] 100 % Ya Thornton [facility] 03-09-2023 07:21-0500 Systolic blood pressure 108 mm[Hg] Ya Thornton [facility] 02-21-2023 12:53-0500 Blood Pressure Location Ya Thornton [facility] 02-21-2023 12:53-0500 Diastolic blood pressure 72 mm[Hg] Ya Thornton [facility] 02-21-2023 12:53-0500 Heart rate 103 /min Ya Thornton [facility] 02-21-2023 12:53-0500 Respiratory rate 18 /min Ya Thornton [facility] 02-21-2023 12:53-0500 SaO2% (BldA) [Mass fraction] 99 % Ya Thornton [facility] 02-21-2023 12:53-0500 Systolic blood pressure 110 mm[Hg] Ya Thornton [facility] 11-30-2022 12:10-0400 Blood Pressure Location Agueda Gray [facility] 11-30-2022 12:10-0400 Body temperature 97.52 [degF] Agueda Gray [facility] 11-30-2022 12:10-0400 Diastolic blood pressure 70 mm[Hg] Agueda Gray [facility] 11-30-2022 12:10-0400 Heart rate 97 /min Agueda Gray [facility] 11-30-2022 12:10-0400 Systolic blood pressure 105 mm[Hg] Agueda Gray [facility] 11-11-2022 09:20-0400 Blood Pressure Location Ya Thornton [facility] 11-11-2022 09:20-0400 Body temperature 98.06 [degF] Ya Thornton [facility] 11-11-2022 09:20-0400 Diastolic blood pressure 62 mm[Hg] Ya Thornton [facility] 11-11-2022 09:20-0400 Heart rate 76 /min Ya Thornton [facility] 11-11-2022 09:20-0400 SaO2% (BldA) [Mass fraction] 98 % Ya Thornton [facility] 11-11-2022 09:20-0400 Systolic blood pressure 112 mm[Hg] Ya Thornton [facility] 05-03-2022 14:14-0500 Blood Pressure Location Ritu Desai [facility] 05-03-2022 14:14-0500 Body temperature 97.7 [degF] Ritu Desai [facility] 05-03-2022 14:14-0500 Diastolic blood pressure 62 mm[Hg] Ritu Desai [facility] 05-03-2022 14:14-0500 Heart rate 71 /min Ritu Lloyd [facility] 05-03-2022 14:14-0500 SaO2% (BldA) [Mass fraction] 98 % Ritu Desai [facility] 05-03-2022 14:14-0500 Systolic blood pressure 118 mm[Hg] Ritu Desai [facility] 2021 02:06-0400 Body weight 58.[address] SANTOSH MARSHALL [facility] Comment on above: Performed By: #### AFPMAT #### [facility] [address] [place] [address] Dr. Rima Charles Encounters Encounter Date Encounter Type Care Provider Facility Start: 01-07-2025 ambulatory Marta Lund lity:[facility] Start: 09-24-2024 End: 09-24-2024 Chart abstracting Jacklyn Blakely MD Work Phone: [facility] Start: 09-24-2024 End: 09-26-2024 Clinisync Result Encounter Santosh Joanna DO Work Phone: [facility] Unsolicited Start: 09-24-2024 End: 09-26-2024 Clinisync Result Encounter Santosh Joanna DO Work Phone: [facility] Unsolicited Start: 09-20-2024 End: 09-20-2024 Orders Only Irene Gutierrez RN [facility] Comment on above: Thyroid disease affe cting (Primary Dx); History of prior with IUGR Start: 09-17-2024 End: 09-17-2024 Bamboo flowsheet Santsoh Joanna DO Work Phone: [facility] Start: 09-17-2024 End: 09-17-2024 Bamboo flowsheet Santosh Joanna DO Work Phone: [facility] Start: 09-17-2024 End: 09-17-2024 ambulatory SANTOSH JOANNA Not Available Start: 09-17-2024 End: 09-17-2024 flow sheet Santosh Joanna DO Work Phone: [facility] Comment on above: 13 weeks gestation o f (HHS-HCC); Second trimester (HHS-HCC); Thyroid disease ; History of prior with IUGR ; Diabetes mellitus screening Start: 09-12-2024 End: 09-18-2024 Clinisync Result Encounter Santosh Joanna DO Work Phone: [facility] Unsolicited Start: 09-12-2024 End: 09-18-2024 Clinisync Result Encounter Santosh Joanna DO Work Phone: [facility] Unsolicited Start: 08-21-2024 End: 08-21-2024 Clinisync Result Encounter Santosh Joanna DO Work Phone: [facility] Unsolicited Start: 08-21-2024 End: 08-21-2024 Clinisync Result Encounter Santosh Joanna DO Work Phone: [facility] Unsolicited Start: 08-17-2024 End: 08-17-2024 Office outpatient visit 5 minutes [facility] Joanna Nurse [facility] Comment on above: GA: 8w6d Start: 08-17-2024 End: 08-17-2024 ambulatory SANTOSH JOANNA Not Available Start: 07-09-2024 End: 07-09-2024 ambulatory Marta Almanzar Facility:[facility] Start: 07-05-2024 End: 07-05-2024 ambulatory Ham Robins Facility:[facility] Start: 07-04-2024 End: 07-04-2024 ambulatory Marta Almanzar Facility:[facility] Start: 07-04-2024 End: 07-04-2024 Patient encounter procedure Marta Almanzar [facility] Start: 05-14-2024 End: 05-14-2024 ambulatory CARMITA JURADO [facility] Start: 05-14-2024 End: 05-14-2024 Subsequent hospital visit [...] preventive med est patient 18-39 yrs Santosh Marshall DO Work Phone: [facility] Comment on above: Well woman exam with routine gynecological exam Start: 09-07-2023 End: 09-07-2023 ambulatory Ya Thornton Facility:[facility] Start: 09-07-2023 End: 09-07-2023 Patient encounter procedure Ya Thornton [facility] Start: 08-08-2023 End: 08-08-2023 ambulatory Ya Thornton Facility:[facility] Start: 08-08-2023 End: 08-08-2023 Patient encounter procedure Ya Thornton [facility] Start: 07-12-2023 End: 07-12-2023 ambulatory OPAL LUZ Facility:[facility] Start: 07-12-2023 End: 07-12-2023 Patient encounter procedure OPAL LUZ [facility] Start: 05-16-2023 End: 05-16-2023 ambulatory Ya Thornton Facility:[facility] Start: 05-16-2023 End: 05-16-2023 ambulatory Ya Thornton Facility:[facility] Start: 04-01-2023 ambulatory Ya Thornton Facilit y:[facility] Start: 03-24-2023 End: 03-24-2023 ambulatory Ya Thornton Facility:[facility] Start: 03-24-2023 End: 03-24-2023 Patient encounter procedure Ya Thornton [facility] Start: 03-22-2023 End: 03-22-2023 ambulatory Ya Thornton Facility:[facility] Start: 03-22-2023 End: 03-22-2023 Patient encounter procedure Ya Thornton [facility] Start: 03-09-2023 End: 03-09-2023 Lab Drop off Ya Thornton [facility] Start: 03-09-2023 End: 03-09-2023 ambulatory Ya Thornton Facility:[facility] Start: 03-09-2023 End: 03-09-2023 Patient encounter procedure Ya Thornton [facility] Start: 02-21-2023 End: 02-21-2023 Lab Drop off Ya Thornton [facility] Start: 02-21-2023 End: 02-21-2023 ambulatory Ya Thornton Facility:[facility] Start: 02-21-2023 End: 02-21-2023 Patient encounter procedure Ya Thornton [facility] Start: 11-30-2022 End: 11-30-2022 ambulatory [facility] Start: 11-30-2022 End: 11-30-2022 Patient encounter procedure Agueda Gray [facility] Start: 11-11-2022 ambulatory Ya Thornton [facility] y:Lucio Start: 11-11-2022 End: 11-11-2022 ambulatory Ya Thornton Facility:[facility] Start: 11-11-2022 End: 11-11-2022 Patient encounter procedure Ya Thornton [facility] Start: 10-08-2022 End: 10-08-2022 ambulatory Ya Thornton Facility:[facility] Start: 10-08-2022 End: 10-08-2022 ambulatory Ya Thornton Facility:[facility] Start: 05-03-2022 End: 05-03-2022 Patient encounter procedure Ritu R Lloyd [facility] Start: 10-19-2021 End: 10-19-2021 ambulatory [...] Date Procedure Procedure Detail Performing Clinician Start: 09-24-2024 ALL MISCELLANEOUS TEST Santosh Joanna DO Work Phone: Start: 09-12-2024 ALL MISCELLANEOUS TEST Santosh Joanna DO Work Phone: Start: 08-21-2024 Antibody screen Heriberto Blakely MD Work Phone: Start: 08-21-2024 CBC W Auto Different ial panel - Blood Santosh R Joanna DO Work Phone: Start: 08-21-2024 Drug scrn 1+ class nonchromo Not In System Ref Prov Start: 08-21-2024 Hemoglobin glycosylated a1c Santosh R Joanna DO Work Phone: Start: 08-21-2024 Hepatitis c antibody No t In System Ref Prov Start: 08-21-2024 HIV 1&2 AB/AG SCREEN (P24 AG) Not In System Ref Prov Start: 08-21-2024 Iaad ia hepatitis b surface antigen Not In System Ref Prov Start: 08-21-2024 SYPHILIS TOTAL(UNKNO WN SYPHILIS STATUS) Not In System Ref Prov Start: 08-21-2024 TYPE AND SCREEN Not In System Ref Prov Start: 08-21-2024 ALL CBC WITH AUTO DIFF Santosh Bhaktao DO Work Phone: Start: 08-17-2024 End: 08-17-2024 Urnls dip stick/tablet rgnt non-auto w/o micrscp Santosh Bhaktao DO Work Phone: Start: 12-12-2023 IGP,APTIMA HPV,AGE GDLN Santosh myTomorrows DO Work Phone: Start: 06-04-2021 Adult depression scr eening assessment Jacklyn Blakely MD Work Phone: None (qualifier value) Lawson Desai Plan of Treatment Date Care Activity Detail Author Start: 05-27-2031 DTaP,Tdap and Td Vaccines (8 - Td or Tdap) DTaP,Tdap and Td Vaccines (8 - Td or Tdap) [facility] Start: 01-01-2025 End: 01-01-2025 Patient encounter procedure 01/01/2025 2:00 PM EDT Office Visit [facility] [address] [place] [address] Santosh Marshall, DO [address] [place], [place] [id number] [facility] Start: 12-17-2024 End: 12-17-2024 Patient encounter procedure 12/17/2024 3:00 PM EDT Office Visit [facility] [address] [place] [address] Santosh Marshall, DO [address] [place] [address] [facility] Start: 11-19-2024 Influenza vaccination Influenza Vacc ine [facility] Start: 11-05-2024 End: 11-05-2024 Patient encounter procedure [facility] Start: 10-21-2024 End: 09-20-2025 [facility] with or without consult [facility] with or without consult Imaging Routine Thyroid disease affecting History of prior with IUGR Expected: 10/21/2024 (Approximate), Expires: 09/20/2025 [facility] Work Phone: Comment on above: Expected: 10/21/2024 (Approximate), Expires: 09/20/2025 Start: 10-15-2024 End: 10-15-2024 Patient encounter procedure 10/15/2024 9:50 AM EDT Routine [facility] [address] [place] [id number] Erum Guidry PA [address] [place] [address] [facility] Start: 09-17-2024 End: 09-17-2025 Measurement of glucose 1 hour after glucose challenge for glucose tolerance test Glucose tolerance, 1 hour Lab Routine Diabetes mellitus screening Expected: 09/17/2024 (Approximate), Expires: 09/17/2025 [facility] Work Phone: Comment on above: Expected: 09/17/2024 (Approximate), Expires: 09/17/2025 Start: 09-17-2024 End: 09-17-2024 Patient encounter procedure 09/17/2024 10:50 AM EDT Routine [facility] [address] [place] [phone] Santosh Marshall, DO [address] [place] [address] [facility] Start: 08-17-2024 End: 08-17-2025 ABO/Rh ABO/Rh Lab Routine Missed menses , unspecified gestational age Expected: 08/17/2024 (Approximate), Expires: 08/17/2025 [facility] Comment on above: Expected: 08/17/2024 (Approximate), Expires: 08/17/2025 Start: 08-17-2024 End: 08-17-2025 Blood type and Indirect antibody screen panel - Blood Type and screen Lab Routine Missed menses , unspecified gestational age Expected: 08/17/2024 (Approximate), Expires: 08/17/2025 [facility] Comment on above: Expected: 08/17/2024 (Approximate), Expires: 08/17/2025 Start: 08-17-2024 End: 08-17-2025 Drugs of abuse panel - Urine by Screen method Rapid drug screen, urine Lab Routine , unspecified gestational age Encounter for supervision of normal first in first trimester Expected: 08/17/2024 (Approximate), Expires: 08/17/2025 [facility] Comment on above: Expected: 08/17/2024 (Approximate), Expires: 08/17/2025 Start: 08-09-2024 End: 11-09-2024 US Pelvis transvaginal US OB transvaginal Imaging Routine Missed menses Expected: 08/09/2024, Expires: 11/09/2024 [facility] Work Phone: Comment on above: Expected: 08/09/2024 , Expires: 11/09/2024 Start: 11-20-2023 COVID-19 (2023-04 5 season) COVID-19 ( season) [facility] Start: 11-20-2023 FLU (#1) FLU (#1) [facility] Start: 06-04-2022 Depression Screening Depression [facility] Start: 01-19-2022 ambulatory Ambulatory Facility:H 1 Start: 2019 Microscopic observat ion [Identifier] in Cervix by Cyto stain Pap Smear [facility] Start: 2019 Screening for malign ant neoplasm of cervix Pap Smear [facility] Start: 2017 Hepatitis B (1 of 3 - 19+ 3-dose series) Hepatitis B (1 of 3 - 19+ 3-dose series) [facility] Start: 01-16-2016 Adult BMI Screening Adult BMI Screen ing [facility] Start: 2014 MenB (1 of 2 - MenB 2-Dose Series Bexsero) MenB (1 of 2 - MenB 2-Dose Series Bexsero) [facility] Start: 2013 HPV (1 - 3-dose series) HPV (1 - 3-d ose series) [facility] Start: 2011 Varicella (1 of 2 - 13+ 2-dose series) Varicella (1 of 2 - 13+ 2-dose series) [facility] Start: 2010 Tobacco Screening Tobacco Screening [facility] Start: 2005 Tetanus Diphtheria a nd Pertussis Vaccines (1 - Tdap) Tetanus Diphtheria and Pertussis Vaccines (1 - Tdap) [facility] Start: 1999 MMR (1 of 1 - Standa rd series) MMR (1 of 1 - Standard series) [facility] Bacteria identified in Urine by Culture Urine culture Microbiology Routine Missed menses Ordered: 08/17/2024 [facility] Comment on above: Ordered: 08/17/2024 CBC W Auto Different ial panel - Blood CBC and differential Lab Routine Missed menses , unspecified gestational age Ordered: 08/17/2024 [facility] Comment on above: Ordered: 08/17/2024 Cytology Cervical or vaginal smear or scraping study Pap Smear Pathology and Cytology Routine Well woman exam with routine gynecological exam Ordered: 12/12/2023 [facility] Work Phone: Comment on above: Ordered: 12/12/2023 End: 05-14-2024 DNA Extraction and hold [facility] Work Phone: Comment on above: 1 Occurrences starti ng 05/14/2024 until 05/14/2024, 1 completed Hemoglobin A1c/Hemoglobin.total in Blood Hemoglobin A1c Lab Routine Missed menses , unspecified gestational age Ordered: 08/17/2024 [facility] Comment on above: Ordered: 08/17/2024 Hepatitis B virus surface Ag [Presence] in Serum or Plasma by Immunoassay Hepatitis B surface antigen Lab Routine Missed menses , unspecified gestational age Ordered: 08/17/2024 [facility] Comment on above: Ordered: 08/17/2024 Hepatitis C virus Ab [Presence] in Serum or Plasma by Immunoassay Hepatitis C antibody Lab Routine Missed menses , unspecified gestational age Ordered: 08/17/2024 [facility] Comment on above: Ordered: 08/17/2024 HIV-1/HIV-2 antigen/antibody combination immunoassay HIV-1 and HIV-2 antibodies Lab Routine Missed menses , unspecified gestational age Ordered: 08/17/2024 [facility] Comment on above: Ordered: 08/17/2024 Reagin Ab [Presence] in Serum by RPR RPR Lab Routine Missed menses , unspecified gestational age Ordered: 08/17/2024 [facility] Comment on above: Ordered: 08/17/2024 Rubella antibody, IgG Rubella an tibody, IgG Lab Routine Missed menses , unspecified gestational age Ordered: 08/17/2024 [facility] Comment on above: Ordered: 08/17/2024 Thyrotropin [Units/volume] in Serum or Plasma TSH Lab Routine Missed menses , unspecified gestational age Encounter for supervision of normal first in first trimester Ordered: 08/17/2024 [facility] Comment on above: Ordered: 08/17/2024 US Pelvis transvaginal US OB tra nsvaginal Imaging Routine Missed menses 08/17/2024 9:27 AM EDT [facility] Immunizations Immunization Date Immunization Notes Care Provider Fa cility 05-26-2021 tetanus toxoid, reduced diphtheria toxoid, and acellular pertussis vaccine, adsorbed Ya Thornton [facility] 10-21-2015 meningococcal B vaccine, fully recombinant Ya Thornton [facility] 09-15-2015 meningococcal ACWY vaccine, unspecified formulation Ya Thornton [facility] 09-15-2015 meningococcal B vaccine, fully recombinant Ya Thornton [facility] 06-22-2010 meningococcal ACWY vaccine, unspecified formulation Ya Thornton [facility] 06-22-2010 tetanus toxoid, reduced diphtheria toxoid, and acellular pertussis vaccine, adsorbed Ya Thornton [facility] 01-30-2009 influenza virus vaccine, unspecified formulation Jacklyn Blakely MD Work Phone: [facility] 10-16-2003 DTaP, unspecified formulation Ya Thornton [facility] 10-16-2003 measles, mumps and rubella virus vaccine Ya Thornton [facility] 10-16-2003 poliovirus vaccine, unspecified formulation Ya Thornton [facility] 02-03-2000 DTaP, unspecified formulation Ya Thornton [facility] 01-26-1999 measles, mumps and rubella virus vaccine Ya Thornton [facility] 01-26-1999 varicella virus vaccine Ya Thornton [facility] 1998 DTaP, unspecified formulation Ya Thornton [facility] 1998 DTaP, unspecified formulation Ya Thornton [facility] 1998 DTaP, unspecified formulation Ya Thornton [facility] 1998 hepatitis B vaccine, pediatric or pediatric/adolescent dosage Ya Thornton [facility] NEGATED: Highlighted row has not occurred!11-29-2022 influenza virus vaccine, unspecified formulation Agueda Gray [facility] NEGATED: Highlighted row has not occurred!05-03-2022 influenza virus vaccine, unspecified formulation Ritu Desai [facility] Payers Date Payer Category Payer [facility] BCBS [id number] 2024 [facility] Managed Care - O [id number] 2023 Unknown [id number] 2023 Unknown [id number] 2023 Unknown 2023 Unknown [id number] 2022 Private Health Insurance [id number] 2022 Medicaid HMO [employer] [id number] 2019 Managed Care Other (unspecified) [employer] [id number] 1998 Unknown [id number] 2.16.840.1.046941.3.579.2. 593 1998 Unknown [id number] 2.16.840.1.065874.3.579.2. 593 1998 Unknown [id number] 2.16.840.1.756631.3.579.2. 593 1998 Unknown [id number] 2.16.840.1.684021.3.579.2. 593 1998 Unknown [id number] 2.16.840.1.309680.3.579.2. 593 1998 Unknown [id number] 2.16.840.1.922992.3.579.2. 593 1998 Unknown [id number] 2.16.840.1.781038.3.579.2. 593 1998 Unknown [id number] 2.16.840.1.835813.3.579.2. 593 1998 Unknown [id number] 2.16.840.1.612742.3.579.2. 593 1998 Unknown [id number] 2.16.840.1.507122.3.579.2. 593 1998 Unknown [id number] 2.16.840.1.334968.3.579.2. 727 1998 Unknown [id number] 2.16.840.1.590146.3.579.2. 727 1998 Unknown [id number] 2.16.840.1.332964.3.579.2. 727 1998 Unknown [id number] 2.16.840.1.590605.3.579.2. 727 1998 Unknown [id number] 2.16.840.1.961666.3.579.2. 727 1998 Unknown [id number] 2.16.840.1.189255.3.579.2. 727 1998 Unknown [id number] 2.16.840.1.639746.3.579.2. 727 1998 Unknown [id number] 2.16.840.1.819586.3.579.2. 727 1998 Unknown [id number] 2.16.840.1.707795.3.579.2. 727 1998 Unknown [id number] 2.16.840.1.568106.3.579.2. 727 1998 Unknown [id number] 2.16.840.1.014609.3.579.2. 727 1998 Unknown [id number] 2.16.840.1.038382.3.579.2. 727 1998 Unknown [id number] 2.16.840.1.977514.3.579.2. 727 1998 Unknown [id number] 2.16.840.1.776221.3.579.2. 727 1998 Unknown [id number] 2.16.840.1.626548.3.579.2. 727 1998 Unknown [id number] 2.16.840.1.272332.3.579.2. 727 1998 Unknown [id number] 2.16.840.1.787844.3.579.2. 479 1998 Unknown [id number] 2.16.840.1.571465.3.579.2. 727 1998 Unknown [id number] 2.16.840.1.635145.3.579.2. 727 1998 Unknown [id number] 2.16.840.1.373381.3.579.2. 727 1998 Unknown [id number] 2.16.840.1.971701.3.579.2. 727 1998 Unknown [id number] 2.16.840.1.443734.3.579.2. 727 1998 Unknown [id number] 2.16.840.1.793831.3.579.2. 727 1998 Unknown [id number] 2.16.840.1.495718.3.579.2. 727 1998 Unknown [id number] 2.16.840.1.923192.3.579.2. 1259 1998 Unknown [id number] 2.16.840.1.481703.3.579.2. 1259 1998 Unknown [id number] 2.16.840.1.268314.3.579.2. 1259 1998 Unknown [id number] 2.16.840.1.374653.3.579.2. 1259 1959 Self-pay 1959 Unknown [id number] 1959 Unknown [id number] 1959 Unknown [id number] Unknown [id number] 2.16.840.1.790465.3.579.2. 593 Social History Date Type Detail Facility Start: 05-03-2022 End: 11-17-2022 Tobacco smoking status Never smoked tobacco (finding) [facility] Tobacco smoking status Never [facility]ane [facility] Start: 07-12-2023 End: 12-12-2023 [facility] Start: 12-12-2023 End: 09-17-2024 Alcoholic beverage intake Current drinker of alcohol (finding) [facility] Start: 07-12-2023 End: 12-12-2023 History of Social function [facility] Start: 11-17-2022 Alcohol Comment occasional alcohol u se [facility] Start: 1998 Sex assigned at Not on file N [facility] Tobacco smoking stat [facility] Tobacco smoking consumption unknown [facility] Sexual Orientation [facility] Start: 07-02-2009 End: 12-03-2020 Sex Female (finding) [facility] Start: 06-30-2024 [facility] Start: 12-23-2020 Tobacco use and exposure Smokeless tobacco non-user [facility] Start: 09-24-2024 Alcoholic beverage intake Ex-drinker (finding) [facility] The thought of elliecici ponce myself has occurred to me Never [facility] Medical Equipment Procedure Code Equipment Code Equipment Origin al Text Equipment Identifier Dates Glucose Test Str ips, See Instructions, 1 EA, 3, Glucose Test Strips, [facility], Supply, 166, cm, 10/08/22 15:10:00 EDT, Height/Length Dosing, 57.8, kg, 10/08/22 15:10:00 EDT, Weight Dosing Start: 10-08-2022 Lancets, See Instructions, 100 lancet(s), 3, Lancets, [facility], Supply, 166, cm, 10/08/22 15:10:00 EDT, Height/Length Dosing, 57.8, kg, 10/08/22 15:10:00 EDT, Weight Dosing Start: 10-08-2022 Glucose Test Str ips, See Instructions, 1 EA, 3, Glucose Test Strips, [facility], Supply, 166, cm, 10/08/22 15:10:00 EDT, Height/Length Dosing, 57.8, kg, 10/08/22 15:10:00 EDT, Weight Dosing Start: 10-08-2022 Lancets, See Instructions, 100 lancet(s), 3, Lancets, [facility], Supply, 166, cm, 10/08/22 15:10:00 EDT, Height/Length Dosing, 57.8, kg, 10/08/22 15:10:00 EDT, Weight Dosing Start: 10-08-2022 Glucose Test Str ips, See Instructions, 1 EA, 3, Glucose Test Strips, [facility], Supply, 166, cm, 10/08/22 15:10:00 EDT, Height/Length Dosing, 57.8, kg, 10/08/22 15:10:00 EDT, Weight Dosing Start: 10-08-2022 Lancets, See Instructions, 100 lancet(s), 3, Lancets, [facility], Supply, 166, cm, 10/08/22 15:10:00 EDT, Height/Length Dosing, 57.8, kg, 10/08/22 15:10:00 EDT, Weight Dosing Start: 10-08-2022 Glucose Test Str ips, See Instructions, 1 EA, 3, Glucose Test Strips, [facility], Supply, 166, cm, 10/08/22 15:10:00 EDT, Height/Length Dosing, 57.8, kg, 10/08/22 15:10:00 EDT, Weight Dosing Start: 10-08-2022 Lancets, See Instructions, 100 lancet(s), 3, Lancets, [facility], Supply, 166, cm, 10/08/22 15:10:00 EDT, Height/Length Dosing, 57.8, kg, 10/08/22 15:10:00 EDT, Weight Dosing Start: 10-08-2022 Glucose Test Str ips, See Instructions, 1 EA, 3, Glucose Test Strips, [facility], Supply, 166, cm, 10/08/22 15:10:00 EDT, Height/Length Dosing, 57.8, kg, 10/08/22 15:10:00 EDT, Weight Dosing Start: 10-08-2022 Lancets, See Instructions, 100 lancet(s), 3, Lancets, [facility], Supply, 166, cm, 10/08/22 15:10:00 EDT, Height/Length Dosing, 57.8, kg, 10/08/22 15:10:00 EDT, Weight Dosing Start: 10-08-2022 Glucose Test Str ips, See Instructions, 1 EA, 3, Glucose Test Strips, [facility], Supply, 166, cm, 10/08/22 15:10:00 EDT, Height/Length Dosing, 57.8, kg, 10/08/22 15:10:00 EDT, Weight Dosing Start: 10-08-2022 Lancets, See Instructions, 100 lancet(s), 3, Lancets, [facility], Supply, 166, cm, 10/08/22 15:10:00 EDT, Height/Length Dosing, 57.8, kg, 10/08/22 15:10:00 EDT, Weight Dosing Start: 10-08-2022 Glucose Test Str ips, See Instructions, 1 EA, 3, Glucose Test Strips, [facility], Supply, 166, cm, 10/08/22 15:10:00 EDT, Height/Length Dosing, 57.8, kg, 10/08/22 15:10:00 EDT, Weight Dosing Start: 10-08-2022 Lancets, See Instructions, 100 lancet(s), 3, Lancets, [facility], Supply, 166, cm, 10/08/22 15:10:00 EDT, Height/Length Dosing, 57.8, kg, 10/08/22 15:10:00 EDT, Weight Dosing Start: 10-08-2022 Glucose Test Str ips, See Instructions, 1 EA, 3, Glucose Test Strips, [facility], Supply, 166, cm, 10/08/22 15:10:00 EDT, Height/Length Dosing, 57.8, kg, 10/08/22 15:10:00 EDT, Weight Dosing Start: 10-08-2022 Lancets, See Instructions, 100 lancet(s), 3, Lancets, [facility], Supply, 166, cm, 10/08/22 15:10:00 EDT, Height/Length Dosing, 57.8, kg, 10/08/22 15:10:00 EDT, Weight Dosing Start: 10-08-2022 Glucose Test Str ips, See Instructions, 1 EA, 3, Glucose Test Strips, [facility], Supply, 166, cm, 10/08/22 15:10:00 EDT, Height/Length Dosing, 57.8, kg, 10/08/22 15:10:00 EDT, Weight Dosing Start: 10-08-2022 Lancets, See Instructions, 100 lancet(s), 3, Lancets, [facility], Supply, 166, cm, 10/08/22 15:10:00 EDT, Height/Length Dosing, 57.8, kg, 10/08/22 15:10:00 EDT, Weight Dosing Start: 10-08-2022 Glucose Test Str ips, See Instructions, 1 EA, 3, Glucose Test Strips, [facility], Supply, 166, cm, 10/08/22 15:10:00 EDT, Height/Length Dosing, 57.8, kg, 10/08/22 15:10:00 EDT, Weight Dosing Start: 10-08-2022 Lancets, See Instructions, 100 lancet(s), 3, Lancets, [facility], Supply, 166, cm, 10/08/22 15:10:00 EDT, Height/Length Dosing, 57.8, kg, 10/08/22 15:10:00 EDT, Weight Dosing Start: 10-08-2022 Glucose Test Str ips, See Instructions, 1 EA, 3, Glucose Test Strips, [facility], Supply, 166, cm, 10/08/22 15:10:00 EDT, Height/Length Dosing, 57.8, kg, 10/08/22 15:10:00 EDT, Weight Dosing Start: 10-08-2022 Lancets, See Instructions, 100 lancet(s), 3, Lancets, [facility], Supply, 166, cm, 10/08/22 15:10:00 EDT, Height/Length Dosing, 57.8, kg, 10/08/22 15:10:00 EDT, Weight Dosing Start: 10-08-2022 Glucose Test Str ips, See Instructions, 1 EA, 3, Glucose Test Strips, [facility], Supply, 166, cm, 10/08/22 15:10:00 EDT, Height/Length Dosing, 57.8, kg, 10/08/22 15:10:00 EDT, Weight Dosing Start: 10-08-2022 Lancets, See Instructions, 100 lancet(s), 3, Lancets, [facility], Supply, 166, cm, 10/08/22 15:10:00 EDT, Height/Length Dosing, 57.8, kg, 10/08/22 15:10:00 EDT, Weight Dosing Start: 10-08-2022 Use daily as directed & as needed Start: 03-26-2021 Functional Status Date Assessment Result Facility 08-08-2023 Functional Status N/A [facility] 03-09-2023 Functional Status N/A [facility] 02-21-2023 Functional Status N/A [facility] 11-30-2022 Functional Status N/A [facility] 11-11-2022 Functional Status N/A [facility] 05-03-2022 Functional Status N/A [facility] Clinical Notes 05-03-2022 to 09-17-2024 Aliya Jeronimo, KALE - 09/17/2024 10:50 AM Jeremias Tapia EHS SPECIALIST - 08/17/2024 9:30 AM Denisse Villarreal LPN - 12/12/2023 2:00 PM EDTLaboratoryLaboratoryLaboratoryLaboratoryLaboratoryLaboratoryRadiology Note Date & Type Note Facility 09-17-2024 History of Present illness Narrative Reason for [...] nursing note reviewed. Exam conducted with a supervisor powder and primer canning present. Vitals: Estimated body mass index is 22.1 kg/m as calculated from the following: Height as of 11/29/22: 5' 5 . Weight as of this encounter: 132 lb 12.8 oz. BP: 112/70 Patient's last menstrual period was 06/16/2024. ASSESSMENT & PLAN ICD-10-CM 1. 13 weeks gestation of ([facility]) Z3A.13 2. Second trimester ([facility]) Z34.92 3. Thyroid disease E07.9 levothyroxine (Synthroid) [...] or undercooked meat, and stay away from [facility]. Patient has been consulted regarding any further do's and don'ts of . Patient voiced understanding and all questions and concerns were answered. Pt has h/o IUGR, thyroid disease, pt being referred to [facility] for level II ultrasound. Pt should be taking 125mcg of levothyroxine. Pt voiced understanding. Pt to start baby aspirin. Orders Placed This Encounter Procedures Glucose tolerance, 1 hour Follow Up: Patient is to return in 4 weeks for routine OB appointment. Documented by Aliya Jeronimo LPN on behalf of: Santosh Marshall DO documented in this encounter [facility] 08-17-2024 History of Present illness Narrative Reason [...] or undercooked meat, and stay away from [facility]. Patient has also been advised to not change litter boxes and eat 6 small meals a day. Patient has been consulted regarding the do's and don'ts of . Patient was given labs and all questions and concerns were answered. Patient was sent in Magnesium for headaches. Patient given [place] labs to do with initial labs along [...] Carmita Tapia LPN documented in this encounter [facility] 07-09-2024 Note Patient Education Endocrinology [...] Follow these instructions at home: ??? Take xxyj-kue-afgednt and prescription medicines only as told by [...] provider. Document Revised: 03/09/2022 Document Reviewed: 03/09/2022 [employer] Patient Education ? 2023 [employer] Obstetrics and Gynecology Health Maintenance, Female Adopting a healthy lifestyle and getting preventive care are important in promoting health and wellness. Ask your health care provider about: ??? The right schedule for you to have regular tests and exams. ??? Things (more content not included)... [facility] 07-05-2024 Note Patient Education ENT How to [...] cannot use soap and water, use hand electric shaver mechanic. 2. Wash your device using the directions [...] provider. Document Revised: 08/24/2021 Document Reviewed: 08/24/2021 [employer] Patient Education ? 2023 [employer]. Infectious Disease Sinus Infection, Adult A sinus [...] diagnosed? Your s (more content not included)... [facility] 12-12-2023 History of Present illness Narrative Reason [...] Diagnosis Date BMI 23.0-23.9, adult Thyroid disease ([facility]/HCC) Well woman exam HISTORY PAST MEDICAL HISTORY SOCIAL HISTORY Past Medical History: Diagnosis Date BMI 23.0-23.9, adult Thyroid disease ([facility]) Well woman exam Social History Tobacco Use [...] nursing note reviewed. Exam conducted with a supervisor powder and primer canning present. Vitals: Estimated body mass index is [...] Santosh Marshall DO documented in this encounter [facility] 08-08-2023 Hospital Discharge instructions Patient [...] to help relieve pain. General instructions Take ecng-qic-zpwzuhp and prescription medicines only as told by [...] provider. Document Revised: 10/22/2020 Document Reviewed: 10/22/2020 [employer] Patient Education 2022 [employer]. 08/08/2023 16:25:44 Hemorrhoids Hemorrhoids Hemorrhoids are swollen [...] 3 times a day. General instructions Take zxxm-par-oywcxcp and prescription medicines only as told by [...] provider. Document Revised: 09/16/2021 Document Reviewed: 09/16/2021 [employer] Patient Education 2022 [employer]. 08/08/2023 16:25:43 Urinary Tract Infection, Adult Urinary [...] Treatment for this condition includes: Antibiotic medicine. Nlcu-qja-xdoyyhl medicines to treat discomfort. Drinking enough water [...] Follow these instructions at home: Medicines Take uppc-rfg-emdlphn and prescription medicines only as told by [...] provider. Document Revised: 10/17/2020 Document Reviewed: 10/17/2020 [employer] Patient Education 2022 [employer]. 08/08/2023 16:25:41 Hypothyroidism Hypothyroidism Hypothyroidism is when [...] away. Follow these instructions at home: Take ygsm-cmb-hkokicy and prescription medicines only as told by [...] provider. Document Revised: 03/09/2022 Document Reviewed: 03/09/2022 [employer] Patient Education 2022 [employer]. [facility] 08-08-2023 Evaluation + Plan note Future Scheduled TestsUA with Cult Rflx 08/08/23CBC w/ Auto Diff 02/08/24Comprehensive Metabolic Panel 02/08/24Thyroid Stimulating Hormone 02/08/24Thyroid Stimulating Hormone 05/16/23Free T4 02/08/24Free T4 05/16/23 [facility] 03-09-2023 Hospital Discharge instructions Patient [...] including vitamins, herbs, eye drops, creams, and eikh-jpn-onkujej medicines. ?Whether you are or may be [...] provider. Document Revised: 11/18/2021 Document Reviewed: 10/10/2020 [employer] Patient Education 2022 [employer] 03/09/2023 08:08:48 Urinary Tract Infection, Adult [...] Treatment for this condition includes: Antibiotic medicine. Dqsb-pjb-unszthf medicines to treat discomfort. Drinking enough water [...] Follow these instructions at home: Medicines Take nqns-ugv-bnmizuu and prescription medicines only as told by [...] provider. Document Revised: 10/17/2020 Document Reviewed: 10/17/2020 [employer] Patient Education 2022 [employer]. 03/09/2023 08:08:46 Hypothyroidism Hypothyroidism Hypothyroidism is when [...] away. Follow these instructions at home: Take vcyd-zkn-afpmnwy and prescription medicines only as told by [...] provider. Document Revised: 03/09/2022 Document Reviewed: 03/09/2022 [employer] Patient Education 2022 [employer]. Follow Up Care 03/07/2023 12:06:45 With:Ya Wang FAM, MED Address: [facility] [place], [facility] [place] [phone]- Business (1) When:05/25/2023 Comments:for f/u [facility] 02-21-2023 Hospital Discharge instructions Patient [...] Follow these instructions at home: Medicines Take shvr-ali-zadroei and prescription medicines only as told by [...] provider. Document Revised: 10/17/2020 Document Reviewed: 10/17/2020 [employer] Patient Education 2022 Code[employer]ike. Follow Up Care 02/21/2023 08:19:47 With:Ya Wang FAM, [facility] Address: [facility] [address] [place], [facility] [place] [phone] Business (1) When:05/25/2023 Comments:for f/u [facility] 11-30-2022 Hospital Discharge instructions Patient [...] Bulgur wheat. Millet. Quinoa. Bran muffins. Popcorn. [place] wafer crackers. Meats and other proteins [place] beans, kidney beans, and díaz beans. Soybeans. [...] Cream cheese. Sour cream. Fats and oils [place]. Beverages Soft drinks. Other foods Cakes and [...] provider. Document Revised: 07/10/2020 Document Reviewed: 07/10/2020 [employer] Patient Education 2022 Code[employer]ike. Follow Up Care 11/11/2022 12:10:41 With:Agueda Gray CNP Address: When:2 weeks Comments:Following EGD/Colonoscopy. [facility] 11-11-2022 Hospital Discharge instructions Patient [...] per serving. Talk with a diet and ehs specialist (dietitian) if you have questions about specific [...] Bulgur wheat. Millet. Quinoa. Bran muffins. Popcorn. [place] wafer crackers. Meats and other proteins [place], kidney, and díaz beans. Soybeans. Split peas. [...] Cream cheese. Sour cream. Fats and oils [place]. Beverages Soft drinks. Other foods Cakes and [...] 03/07/2006 Document Revised: 01/09/2018 Document Reviewed: 01/09/2018 [employer] Patient Education 2020 Codealike. 11/11/2022 01:00:54 Hemorrhoids Hemorrhoids Hemorrhoids are swollen [...] 3 times a day. General instructions Take edla-snx-mzjgrxw and prescription medicines only as told by [...] provider. Document Revised: 09/16/2021 Document Reviewed: 09/16/2021 [employer] Patient Education 2022 Code[employer]ike. Follow Up Care 11/08/2022 14:59:04 With:Ya Wang FAM, [facility] Address: [facility] [place], [facility] [place] [phone] Business (1) When:Within 3 Month(s) Comments:3 mo f/u [facility] 05-03-2022 Hospital Discharge instructions Patient [...] away. Follow these instructions at home: Take libf-vgg-wblhcgm and prescription medicines only as told by [...] 03/07/2006 Document Revised: 02/17/2018 Document Reviewed: 02/15/2018 [employer] Patient Education 2020 Codealike. Follow Up Care 04/05/2022 12:35:49 With:Ritu Desai CNP Address: [address] [place], [place] [address] [address] [phone] When:1 year Comments:or sooner if needed. [facility] Evaluation + Plan note No data available for this section [facility] Evaluation + Plan note Future Appointments Appointment Date:11/30/2022 12:00:00 PM Scheduled Provider:Agueda Gray CNP Location:[facility] Appointment Type:[facility] New Patient Appointment Date:04/04/2023 01:00:00 PM Scheduled Provider:Ya Wang Location:[facility] Appointment Type:FM Open Future Scheduled TestsTSH With T4fr Reflex 10/08/22 [facility] Evaluation + Plan note Future Appointments Appointment Date:04/04/2023 01:00:00 PM Scheduled Provider:Ya Wang Location:[facility] Appointment Type:FM Open Future Scheduled TestsTSH With T4fr Reflex 10/08/22 [facility] Evaluation + Plan note Future Appointments Appointment Date:07/25/2023 10:00:00 AM Scheduled Provider:Ya [facility] Type:FM Open Future Scheduled TestsT3 Free 02/21/23Thyroid Stimulating Hormone 02/21/23Free T4 02/21/23 [facility] Evaluation + Plan note Future Appointments Appointment Date:07/25/2023 10:00:00 AM Scheduled Provider:Ya Wang Location:[facility] Appointment Type:FM Open Diagnostic Tests PendingUrine Culture 02/21/23 Future Scheduled TestsT3 Free 02/21/23Thyroid Stimulating Hormone 02/21/23Free T4 02/21/23 [facility] Evaluation + Plan note Future Appointments Appointment Date:07/25/2023 10:00:00 AM Scheduled Provider:Ya Wang Location:[facility] Appointment Type:FM Open Future Scheduled TestsT3 Free 02/21/23Thyroid Stimulating Hormone 02/21/23Free T4 02/21/23US Retroperitoneal Complete 03/09/23 [facility] Evaluation + Plan note Future Appointments Appointment Date:07/25/2023 10:00:00 AM Scheduled Provider:Ya Wang Location:[facility] Appointment Type:FM Open Diagnostic Tests PendingUrine Culture 03/09/23 Future Scheduled TestsT3 Free 02/21/23Thyroid Stimulating Hormone 02/21/23Free T4 02/21/23US Retroperitoneal Complete 03/09/23 [facility] Evaluation + Plan note Future Appointments Appointment Date:07/12/2023 09:30:00 AM Scheduled Provider:OPAL LUZ PA-C Location:[facility] Appointment Type:URO New Patient Appointment Date:07/25/2023 10:00:00 AM Scheduled Provider:Ya Wang Location:[facility] Appointment Type:FM Open Diagnostic Tests PendingT3 Free 03/22/23 [facility] Evaluation + Plan note Future Appointments Appointment Date:07/12/2023 09:30:00 AM Scheduled Provider:OPAL LUZ PA-C Location:[facility] Appointment Type:URO New Patient Appointment Date:07/25/2023 10:00:00 AM Scheduled Provider:Ya Wang Location:[facility] Appointment Type:FM Open [facility] Evaluation + Plan note Future Appointments Appointment Date:07/25/2023 10:00:00 AM Scheduled Provider:Ya Wang Location:[facility] Appointment Type:FM Open Future Scheduled TestsThyroid Stimulating Hormone 05/16/23Free T4 05/16/23 [facility] Evaluation + Plan note Future Scheduled TestsCBC w/ Auto Diff 02/08/24Comprehensive Metabolic Panel 02/08/24Thyroid Stimulating Hormone 02/08/24Free T4 02/08/24 [facility] Evaluation + Plan note Future Appointments Appointment Date:07/09/2024 08:00:00 AM Scheduled Provider:Marta Rivas Location:[facility] Appointment Type:FM New Patient - Adult Future Scheduled TestsCBC w/ Auto Diff 02/08/24Comprehensive Metabolic Panel 02/08/24Thyroid Stimulating Hormone 02/08/24Free T4 02/08/24 [facility] Evaluation note Diagnosis Well woman exam with routine gynecological exam Routine gynecological examination [facility] Diagnosis Family history of autism Family history of psychiatric condition [facility] [place] Diagnosis Missed menses , unspecified gestational age Encounter for supervision of normal first in first trimester Nonintractable headache, unspecified chronicity pattern, unspecified headache type [facility] Diagnosis 13 weeks gestation of ([facility]) Second trimester ([facility]) state, incidental Thyroid disease Unspecified disorder of thyroid History of prior with IUGR Diabetes mellitus screening Screening for diabetes mellitus [facility]* Diagnosis Thyroid disease affecting - Primary History of prior with IUGR [facility] No data available for this section [facility]ructionsNot on filedocumented in this encounter [facility] filedocumented in [facility] No data available for this section [facility] Summary Purpose Family History No [...] FoundNo Family History Records Found Advance Directives Date Activated Date Inactivated Comments 05/30/2021 7:15 AM 06/01/2021 2:55 PM Date Activated Date Inactivated Comments 05/12/2021 1:10 PM 05/15/2021 2:16 PM Date Activated Date Inactivated Comments 04/21/2021 7:00 PM 04/22/2021 1:57 PM Date Activated Date Inactivated Comments 03/03/2021 5:01 PM 03/26/2021 7:46 PM Additional Source Comments INFORMATION SOURCE (unrecogn ized section and content) DATE CREATED AUTHOR 11/15/2021 [facility] DATE CREATED AUTHOR AUTHOR'S ORGANIZ ATION 09/09/2023 [facility] DATE CREATED AUTHOR AUTHOR'S ORGANIZ ATION 05/21/2024 [facility] DATE CREATED AUTHOR AUTHOR'S ORGANIZ ATION 07/06/2024 [facility] DATE CREATED AUTHOR AUTHOR'S ORGANIZ ATION 07/10/2024 [facility] DATE CREATED AUTHOR AUTHOR'S ORGANIZ ATION 07/13/2024 [facility] DATE CREATED AUTHOR AUTHOR'S ORGANIZ ATION 09/18/2024 [facility] EPIC Patient Care team informatio n (unrecognized section and content) Hematology Oncology Consultant Relationship Specialty Start Date End Date Carrillo White MD [address] [place] [address] PCP - General Internal Medicine 11/29/22 Hematology Oncology Consultant Relationship Specialty Start Date End Date Carrillo White MD [address] [place] [address] PCP - General Internal Medicine 11/29/22 Hematology Oncology Consultant Relationship Specialty Start Date End Date Carrillo White MD [address] [place] [address] PCP - General Internal Medicine 11/29/22 Hematology Oncology Consultant Relationship Specialty Start Date End [place] [address] Attending Provider Medical Clinical Genetics 05/14/24 Hematology Oncology Consultant Relationship Specialty Start Date End Date Carrillo White MD [address] [place] [address] PCP - General Internal Medicine 11/29/22 Hematology Oncology Consultant Relationship Specialty Start Date End Date Carrillo White MD [address] [place] [address] PCP - General Internal Medicine 11/29/22 Hematology Oncology Consultant Relationship Specialty Start Date End Date Carrillo White MD [address] [place] [address] PCP - General Internal Medicine 11/29/22 Hematology Oncology Consultant Relationship Specialty Start Date End Date Carrillo White MD [address] [place] [address] PCP - General Internal Medicine 11/29/22 Hematology Oncology Consultant Relationship Specialty Start Date End Date Carrillo White MD PCP - General Internal Medicine 04/07/21 Reason for Visit (unrecogniz ed section and content) Reason Comments Well Women Visit Reason Comments Amenorrhea Reason Comments Routine Visit FOR RECORDS PERTAINING TO PATIENTS WHO ARE [...] BE BASED ON THE PRIMARY CLINICAL RECORDS. [facility]. provides no warranty or guarantee of the accuracy or completeness of information in this document.
[2024-10-02 11:53] LABS: Glucose 1 Hour 108 mg/dL (<130)
== END 2024-10-02 10:27 | disposition home or self-care (01) ==
LOC: LAB 10:27
PROVIDERS: Visit Provider Obstetrics & Gynecology
DX: Z13.1 Encounter for screening for diabetes mellitus (principal)
CPT/HCPCS: 36415; 82950

== ENCOUNTER 2024-10-15 10:44 | Outpatient (OUT) | payer BC, SELFPAY ==
--- OUTSIDE RECORDS SUMMARY | 2024-10-15 11:00 | XMS_ITS | CCD ---
Author Organization [facility] Care Team Providers Care Roll Tender Name Role Phone JOANNA, DR VILLATORO Admitting [...] Care Unavailable Ritu Desai Primary Care Physician [phone] Ya Thornton Primary Care Physician Norberto, Ya [...] Provider UnavailCarrillo Kirk MD Primary Care Provider [phone] Medications Current Medications Medication Drug Class(es) Dates [...] day(s), # 28 cap(s), Refills(s) 0, Pharmacy: [facility], 166, cm, 03/09/23 7:33:00 EST, Height/Length [...] BID, 60 EA, Refill(s) 1, [id number], 166, cm, 11/11/22 9:28:00 EDT, Height/Length Dosing, 59.4, kg, 11/11/22 9:28:00 EDT, Weight Dosing Start Date: 11/19/22 Status: Ordered Start: 11-11-2022 hydrocortisone -lidocaine 2.5%-3% rectal gel with applicator 1 carmen, Rectal, BID, 60 EA, Refill(s) 1, [facility], 166, cm, 11/11/22 9:28:00 EDT, Height/Length [...] Take before meals. 30 tablet 11 08/22/2024 10/15/2024 Discontinued Start: 06-19-2024 take 1 tablet by [facility] once daily Synthroid 100 mcg Tab 100 mcg = 1 tab(s), Oral, Daily, # 90 tab(s), Refills(s) 0, Pharmacy: [facility], 166, cm, 08/08/23 15:44:00 EDT, Height/Length Dosing, 56.1, kg, 08/08/23 15:51:00 EDT, Weight Dosing Start Date: 06/19/24 Status: Ordered Quantity: 90.0 Unit: tab(s) Repeat number: 1 Start: 06-19-2024 End: 10-15-2024 take 1 tablet by mouth once daily levothyroxine (Synthroid, Levoxyl) 100 MCG tablet Take 100 mcg by mouth Daily 06/19/2024 10/15/2024 Discontinued Start: 05-16-2023 take 1 tablet by stephanie th once daily Synthroid 100 mcg Tab 100 mcg = 1 tab(s), Oral, Daily, # 90 tab(s), Refills(s) 1, Pharmacy: [facility], 166, cm, 05/16/23 14:25:00 EST, Height/Length Dosing, 56.7, kg, 05/16/23 14:25:00 EST, Weight Dosing Start Date: 05/16/23 Status: Ordered Start: 02-07-2023 take 1 tablet by stephanie once daily Synthroid 112 mcg Tab 112 mcg = 1 tab(s), Oral, Daily, # 60 tab(s), Refills(s) 0, Pharmacy: [facility], 166, cm, 11/30/22 12:12:00 EDT, Height/Length Dosing, 58.8, kg, 11/30/22 12:12:00 EDT, Weight Dosing Start Date: 02/07/23 Status: Ordered Start: 10-08-2022 take 1 tablet by stephanie th once daily Synthroid 112 mcg Tab 112 mcg = 1 tab(s), Oral, Daily, # 60 tab(s), Refills(s) 0, Pharmacy: [facility], 166, cm, 10/08/22 15:10:00 EDT, Height/Length [...] Daily, # 90 tab(s), Refills(s) 3, Pharmacy: [facility], 166, cm, 05/03/22 14:21:00 EST, Height/Length Dosing, 61.2, kg, 05/03/22 14:21:00 EST, Weight Dosing Start Date: 05/03/22 Status: Ordered loratadine 10 mg oral tablet (13 sources) Start: 12-05-2019 take 1 tablet by mouth once daily Claritin 10 mg Tab 10 mg, Oral, Daily, # 10 tab(s), Refills(s) 0, Pharmacy: [facility], 166, cm, 12/05/19 13:03:00 EDT, Height/Length [...] day(s), # 9 tab(s), Refills(s) 0, Pharmacy: [facility], 166, cm, 03/09/23 7:33:00 EST, Height/Length Dosing, 58.7, kg, 03/09/23 7:33:00 EST, Weight Dosing Start Date: 03/09/23 Stop Date: 03/12/23 Status: Ordered Start: 02-21-2023 End: 02-24-2023 take 1 tablet by mouth three times daily Pyridium 200 mg Tab 200 mg = 1 tab(s), Oral, TID, X 3 day(s), # 9 tab(s), Refills(s) 0, Pharmacy: [facility], 166, cm, 02/21/23 13:06:00 EST, Height/Length Dosing, 58.6, kg, 02/21/23 13:06:00 EST, Weight Dosing Start Date: 02/21/23 Stop Date: 02/24/23 Status: Ordered PNV no.95/ferrous fum/folic ac ( ORAL) (1 source) PNV no.95/ferrou s fum/folic ac ( ORAL) Take by mouth daily. Active polyethylene glycol 3350 358563 mg / potassium chloride 1480 mg / sodium bicarbonate 5720 mg / sodium chloride 01129 mg powder for oral solution (11 sources) Osmotic Laxative Start: 11-30-2022 NuLYTELY Paige oral powder for reconstitution See Instructions, 1 EA, Refill(s) 0, Prior to colonoscopy., [id number], 166, cm, 11/30/22 12:12:00 EDT, Height/Length Dosing, 58.8, kg, 11/30/22 12:12:00 EDT, Weight Dosing Start Date: 11/30/22 Status: Ordered Quantity: 1.0 Unit: EA Repeat number: 1 MV-Min-Fe Fum-FA-DHA ( 1 PO) (2 sources) MV-Min- Fe Fum-FA-DHA ( 1 PO) Take by mouth Active progesterone (FIRST-PROGESTERONE VGS) 200 mg suppository (1 [...] day(s), # 10 cap(s), Refills(s) 0, Pharmacy: [facility], 166, cm, 02/21/23 13:06:00 EST, Height/Length [...] , childbirth and the puerperium] 09-17-2024 Episodic Residual codes; unclassified (2 sources) Gestation period, 17 weeks; Translations: [17 weeks gestation of ] 10-15-2024 Episodic Thyroid disorders (20 sources) Hypothyroidism, unspecified; [...] Results Test Name Value Interpretation Reference Range [facility] Urinalysis macro (dipstick) panel (U)on 10-15-2024 Bilirubin, UA Negative Negative - 4(7 0) +++ mg/dL [facility] Blood, UA Negative Negative - 50 Cedric/mcL [facility] Clarity, UA Clear [facility] Color, UA Yellow [facility] Glucose, UA Negative Negative - 1999(110) ++++ mg/dL [facility] Interpretation and review of laboratory results Normal [facility] Ketones, UA Negative Negative - 160(16) ++++ mg/dL [facility] Leukocytes, UA Negative Negative - 50 0+++ Ayana/mcL [facility] Nitrite, UA Negative Negative - Positive [facility] pH, UA 6 5 - 9 [facility] Protein, UA Negative Negative - 2000(20) ++++ mg/dL [facility] Spec Grav, UA 1.015 1 - 1.03 [facility] Urobilinogen, UA 0.2 0.2 - 12 mg/dL [facility] GLUCOSE 1 HOURon 10-02-2024 Glucose [Mass/Vol] 108 mg/dL NINF - 130 mg/dL [facility] ALL MISCELLANEOUS TESTon MISCELLANEOUS TEST COMMENT . [facility] Comment on above: Test Ordered: [id number] Parvovirus B19, Human, IgG/IgM Parvovirus B19, IgG 0.1 index Reference Range: 0.0-0.8 Negative <0.9 Equivocal 0.9 - 1.1 Positive >1.1 Parvovirus B19, IgM 0.1 index Reference Range: 0.0-0.8 Negative <0.9 Equivocal 0.9 - 1.1 Positive >1.1 Performed at: [address] [id number] Adjunct Psychology Faculty Member: Darion Moon MD, Phone: [phone] Performed at: [address] [id number] Adjunct Psychology Faculty Member: Madi Maloney PhD, Phone: [phone] Parvovirus B19 (Human), IgG, [facility] MISCELLANEOUS TEST COMMENT . [facility] Comment on above: Test Ordered: [id number] Parvovirus B19, Human, IgG/IgM Parvovirus B19, IgG 0.1 index Reference Range: 0.0-0.8 Negative <0.9 Equivocal 0.9 - 1.1 Positive >1.1 Parvovirus B19, IgM 0.1 index Reference Range: 0.0-0.8 Negative <0.9 Equivocal 0.9 - 1.1 Positive >1.1 Performed at: [address] [id number] Adjunct Psychology Faculty Member: Darion Moon MD, Phone: [phone] Performed at: [address] [id number] Adjunct Psychology Faculty Member: Madi Maloney PhD, Phone: [phone] Parvovirus B19 (Human), IgG, IgM [facility] ALL CBC WITH AUTO DIFFon BASOPHILS ABSOLUTE AUTO 0 [facility] Basophils/100 WBC (Bld) 0.5 % 0.2 - 2.0 % [facility] Eosinophils/100 WBC (Bld) 0.5 % Low 0.9 - 7.0 % [facility] Erythrocyte distribution width (RBC) [Ratio] 12.3 % 11.0 - 15.0 % [facility] Hematocrit (Bld) [Volume fraction] 38.5 % 36.0 - 48.0 % [facility] IMMATURE GRANULOCYTES ABS AUTO 0.02 [facility] Immature granulocytes/100 WBC (Bld) 0.3 % 0.0 - 0.5 % [facility] Interpretation and review of laboratory results Abnormal [facility] LYMPHOCYTES ABSOLUTE AUTO 1.6 [facility] Lymphocytes/100 WBC (Bld) 21 % 20.5 - 60.0 % [facility] MCH (RBC) [Entitic mass] 33.5 pg 26.7 - 34.0 pg [facility] MCHC (RBC) [Mass/Vol] 35.6 g/dL High 29.9 - 35.2 g/dL [facility] MCV (RBC) [Entitic vol] 94.1 fL 81.0 - 99.0 fL [facility] MONOCYTES ABSOLUTE AUTO 0.4 [facility] Monocytes/100 WBC (Bld) 5.1 % 1.7 - 12.0 % [facility] NEUTROPHILS ABSOLUTE AUTO 5.6 [facility] Neutrophils/100 WBC (Bld) 72.6 % 43.0 - 75.0 % [facility] Platelet mean volume (Bld) [Entitic vol] 11.1 fL 9.5 - 13.5 fL [facility] TB EO # 0 [facility] TB PLT 211 [facility] RBC 4.[address] [facility] WBC 7.8 [facility] CBC and differentialon 08-21 Hematocrit (Bld) [Volume fraction] 39 % 36 - 46 % [facility] Platelets (Bld) [#/Vol] 211 10*3/uL 150 - 399 10*3/uL [facility] WBC (Bld) [#/Vol] 7.8 10*3/mL 3.3 - 10.0 10*3/mL [facility] Drug Screen, Urineon 025 Amphetamine/Methamph etamine Negative [facility] Barbiturates Negative [facility] Benzodiazepines Negative [facility] Cocaine Metabolite Negative [facility] Methadone Negative [facility] Opiates Negative [facility] Oxycodone Negative [facility] Phencyclidine Negative [facility] Thc Marijuana, Urine Negative [facility] HBV surface Ag IA Qlon 08-21 Hepatitis B Surface Antigen Negative [facility] HCV Ab IA Qlon 08-21-2024 HCV Ab Ql (S) Non-Reactive [facility] HIV 1+2 Ab+HIV1 p24 Ag IA Ql on 08-21-2024 HIV 1&2 AB/AG Non-Reactive [facility] Hemoglobin A1con 08-21-2024 HbA1c (Bld) [Mass fraction] 5.6 % 4.0 - 6.0 % [facility] Laboratory - Hematology and Cell countson 08-21-2024 Hemoglobin (Bld) [Mass/Vol] 13.7 g/dL 12.0 - 16.0 g/dL [facility] No Panel Informationon 08-21 [facility] Rubella IGG immune statuson 08-21-2024 Rubella immune IgG immune [facility] T. pallidum IgG+IgM IA Ql (S )Ordered By: Nadira Salazar on 08-21-2024 Syphilis Non-Reactive [facility] TSHon 08-21-2024 Thyroid Stimulating (3Rd Generation) Hormone/ Tsh 7.721 [facility] Type and screenon 08-21-2024 Abo/Rh(D) Positive [facility] HCG ( test) Ql (U)o n 08-17-2024 Interpretation and review of laboratory results Abnormal [facility] Preg Test, Ur Positive Negative [facility] US OB TRANSVAGINALon 025 US OB TRANSVAGINAL [...] II, MD, PHD at 20-Aug-2024 10:22:40 AM [facility] Normal Not Available Comment on above: Order Comment: US OB TRANSVAGINAL No LMP recorded. Urinalysis macro (dipstick) panel (U)on 08-17-2024 Bilirubin, UA Negative Negative - 4(7 0) +++ mg/dL [facility] Blood, UA Negative Negative - 50 Cedric/mcL [facility] Clarity, UA Clear [facility] Color, UA Yellow [facility] Glucose, UA Negative Negative - 1999(110) ++++ mg/dL [facility] Interpretation and review of laboratory results Normal [facility] Ketones, UA Negative Negative - 160(16) ++++ mg/dL [facility] Leukocytes, UA Negative Negative - 50 0+++ Ayana/mcL [facility] Nitrite, UA Negative Negative - Positive [facility] pH, UA 7 5 - 9 [facility] Protein, UA Negative Negative - 1999(20) ++++ mg/dL [facility] Spec Grav, UA 1.015 1 - 1.03 [facility] Urobilinogen, UA 0.2 0.2 - 12 mg/dL [facility] Ambulatory Visit Summaryon 0 07-09-2024 Ambulatory Visit Summary Ambulatory Visit Summary YANA [...] 8:40 AM EDT With: Marta Rivas Where: [facility] [address] [place] [address], [place] [address]- Medications What How Much When Why Instructions [...] for choosing us for your care. Normal [facility] Office/Clini c Noteon 07-09-2024 [...] anymore, managed with tylenol Social History: Occupation: [employer] Family life: home with and daughter Diet: no restrictions Caffeine: 1 cup coffee/day Exercise: active lifestyle Alcohol use: denies Drug use: denies Smoking status: denies Health Maintenance: Routine labs: thyroid labs 06/2024, declines further labs Pap (21-64yo): 04/2023 Specialists: Rubber Grinder: rosario Dentist: rosario OBGYN: Joanna Review of [...] Recheck TSH/T (more content not included)... Normal [facility] Comment on above: Result Comment: [...] 8:00 AM EDT With: Marta Rivas Where: [facility] [address], [place] [address]- Medications What How Much When Why Instructions New amoxicillin-clavulan ate (Augmentin 875 mg-125 mg Tab) 1 Tablets By Mouth Every 12 hours Acute sinusitis Duration: 10 Days Pickup at [facility] Unchanged levothyroxine (Synthroid 100 mcg Tab) 1 Tablets By Mouth Every day Pharmacy Information [facility]: [address] [place], [place] [id number] [phone] Allergies No Known Allergies Problems Ongoing - [...] you for choosing us for your care. Godfrey [facility] Family Medicine Office/Clini c Noteon [...] for 10 day(s), 20 tab(s), Refill(s) 0, [facility], 166, cm, 07/05/24 15:34:00 EDT, Height/Length [...] When Contact Information Julienne BARTLETT, Ham Montano, [facility], MED [address], [address] [phone] Additional Instructions: as scheduled with Marta Patient Education Sinus Infection, Adult, [id number] How to Perform a Sinus Rinse, [id number] Problem List/Past Medical History Ongoing Acute sinusitis [...] vaccine, inactivated (more content not included)... Normal [facility] Comment on above: Result Comment: Elec tronically Signed By: Julienne BARTLETT, Ham Montano\.br\Date and Time Signed: 07/05/24 16:06 EDT CHEMISTRYOrdered By: SYSTEM SYSTEM on 07-04-2024 Free T4 [Mass/Vol] 0.82 ng/dL Normal 0.58 - 1.64 ng/dL Remisol Chem TSH Qn 3.09 m[IU]/L Normal 0.34 - 5.60 mcIU/mL Remisol Chem Free T4on 07-04-2024 Free T4 [Mass/Vol] 0.82 ng/dL Normal 0.58-1.64 [facility] Comment on above: Performed By: #### 2 [id number] #### [facility] [address] [place] [address] TSHon 07-04-2024 TSH Qn 3.09 m[IU]/L Normal 0.34-5.60 [facility] Comment on above: Performed By: #### 2 [id number] #### [facility] [address] [place] [address] DNA EXTRACTION AND HOLDon Method Gentra Puregene Reagents from [employer] Invalid Interpretation Code [facility] Comment on above: Order Comment: Relea se to patient->Automatic Nucleic Acid Concentration 273.2 ng/uL Invalid Interpretation Code [facility] Comment on above: Order Comment: Brittaneya to patient->Automatic Nucleic Acid Purity 1.90 Invalid Interpretation Code 1.70-2.10 [facility] Comment on above: Order Comment: Kraig cade to patient->Automatic Signature . Invalid Interpretation Code [facility] Comment on above: Order Comment: Brittaneya to patient->Automatic Storage and Special Instructions Invalid Interpretation Code [facility] Comment on above: Order Comment: Brittaneya to patient->Automatic Result Comment: The extracted DNA is stored in the [facility] at -70 degrees C and is being held for future testing. If there are any questions regarding this sample, please contact the [facility] at [phone]. Total DNA Yield 82.0 ug Invalid Interpretation Code [facility] Comment on above: Order Comment: Kraig cade to patient->Automatic Total Volume DNA 300 ul Invalid Interpretation Code [facility] Comment on above: Order Comment: Kraig cade to patient->Automatic IGP,APTIMA HPV,AGE GDLNon AGE GDLN ACOG TESTING Note . [facility] Comment on above: TESTS RESULT FLAG UN ITS REF RANGE LAB Clinician Provided Cytology Information Source.............Cervix;Endocervix No. of containers..01 ThinPrep Vial Age Algo ACOG Francheska... FLAG LEGEND: L-Low Normal,H-High Normal,LL-Alert Low,HH-Alert High <-Panic Low,>-Panic High,A-Abnormal,AA-Critical Abnormal Performed at: 01 =G [facility] [place] [address] Sugey Torres MD, IGP, RFX APTIMA HPV ASCU Note . [facility] Comment on above: TESTS RESULT FLAG UN ITS REF RANGE LAB DIAGNOSIS: 02 NEGATIVE FOR INTRAEPITHELIAL LESION OR MALIGNANCY. Specimen adequacy: 02 Satisfactory for evaluation. Endocervical and/or squamous metaplastic cells (endocervical component) are present. Performed by: 02 Yudy Rhoades, Stitch Bonder Machine Operator Helper ([facility]) . 02 Note: Note 02 The Pap [...] <-Panic Low,>-Panic High,A-Abnormal,AA-Critical Abnormal Performed at: [address] [address] Sugey Torres MD, Performed at: = - [facility] [address] [id number] Adjunct Psychology Faculty Member: Sugey Torres MD, Phone: [phone] Performed at: - [facility] [id number] Adjunct Psychology Faculty Member: Sugey Torres MD, Phone: [phone] BRUSH-SPATULA CERVIX ENDOCERVIX [facility] Coding Summary.on 09-14-2023 Coding Summary. HPVXCkkn96LNj1xXw+PG hlYWQ+WP1MRQAyF70daA AqsX0vM4TIXOwAZiqoAQ QQYNuUMgPbqiRqKP8gbJ NjZXJu IC8+QN1jJRXfBjfkkMVk t1R5gFG9F70uph2iGLur tNH9LMXnLvApvgris8rw qNz3UKjeHdmcJySc URKzgO55LAY0tW80Lt60 eXIgkCTgo9wvgKp9RvXx KDPtEYP1qPntJPqkz6Lv AKIuJ46dqBKxa6F9 IGNvbGxhcHNlOyBlbXB0 aD4nZMctggead9lfmwyq Itg1vd88tQQzc5H0aZH4 J5SmxfH9NRZcfKSt NiebbONDqX4rxtcjk6xr qozcXvHkBOOwMXc7FPa7 NSSbhRlvRkSiXD57UOB2 OEAcixGjT6BwYOEy pUhpPhL4x5I7Gp7VJ0NY EpijS6XPMKWTSDefxRB+ GT08ls36Z9RgNzszEap8 COTiNWO8fNX4aF9p PTVtSFazf1D5gVI0A6Xy fvMsjh9wy0iyEKGvVAar X20nkCEds4D1LPRqhPQ2 MCFpgMadZsFvcW25 Oyc+ZRHiaLpok2CiXlms e8syh3kzoWq1PizcFJFl lwOghTtwVWU3d8TmDl8n OIMylMO9wAQ2oG2e NuQgZuN5TGcmQ846LaGz cZGxTddyP39oT7LpfRU+ LZBvXvn4KQCkvIviXT8a L0RpELNujyraeKZh bMbqRX2xOKVujbchQZTn yH4yVMSwA8j8CzGmOoX4 GVwiD0CjHJAfzfgfKd52 mV6qHxYzEhT5WOmk G8GzlcP9BQCsnCHpOBsz EIL1U35ko7Q3LJZwAIVh WHR8pAC5mB4pnLxhatmc bGVmdDsgdmVydGlj LBxaKIjaW508PQKqtIop PkNvZGluZyBEYXRlOiAg MDYvMjYvMjAyNDwvdGQ+ HOUwLVD9bZynVDIb hHOeIVosZo0dyXcqvSdt EG9hKRStyhvsTAKbpZ8l OKNkbYHcpZuuJJ6eYIYy dniyb028HcGhHRJ9 OTPcxXLeI9PrfR9sNlHr FREoFBHvE9WkfYTnOQua H883HSkjGnX1GWMilfZr S8AbFPNghLeqBdE2 e5N8Em5Mf4AehxcbV5Dl oAZhErRkIrsvTGe7B3Ux PjwvdHI+QV64MXXqIV90 DNc8SSR6mUymMUkt KZYjG3LlbJ3yBdEnDCKb ZGRkOyc+PHRhYmxlIHdp ZHRoPScxMDAlJyBzdHls JE9zOg6aBZVtAXZa rSiemHCuMbXqx9nrGZCs KDghQB7hlMuyX3YsmEO5 YONyr0g1Nl91W55yR1Qm dXA+CWYaeGX0aLH7 uT1gCyJsCfB8DUuaB502 KwUhaNItYcjxa3xsu4xg yKp2AbD8GWInceSvtIva UFO9u0BdKv12C12c IHdpZHRoPSIxNSUiIHZh xYvcye6pwJ7yTc4+PGNv uKF8lPL2qM4sHvWfDjW7 OQjyN941WrPjuCKs Onssv6jbk5eleSd9ZjIu BRTydaRskNrtHNI0x9Ep Ve78B2TqfSaxm0MaVdv6 rl38gPWqs1L6kYM0 F0IhCBPfudwydBDqeXza EF8oYIRaixofDPDwnE8l SKEpJ4n9KkDxTfD9ATdp D4CsbiS3PPGngPVp WZJvwDPMdW8svgvah9xw ueozSfPzMPEbRVq2GUy9 UMDomUwlTdByXXA6VmZ1 SLY7lUEgmH4jhUah hksisS2cVyq+OHX4pMSv tTVKJE8eEmtnhHD+PHRk GQL8vZxdKWtxFAAbdS1r YWUlF1x2JcVmOnG3 ZBxvG7VnddF9NCDpzZOm NZUquZSKkX9jlpilb8sv bpsyNpAwTXCxPWh8AKz9 LWFsaWduOiBsZWZ0 NeD7CEA5sBCvmF9qpHph chpeiM0rZbb+QmlydGgg LKK7PAj9X4VvTpm6OEPi rZyrHC9vnJMjFQhc Fv3olOmoqSyaVC7gFKBu tmqbk696NyWdk2pkIBWi uEJfVMzdZBO9N95eb9K4 PUHbYCSdWTU9rVF6 rF5vyXzvqljvrDTchZaj buYnbWzdPOfzYErgH674 SSBmcWmfRmTwRPw8N6Uv Ywd7QVDpsRdkKU2z gUJlQIaeMp9krNdofKlz DX1xPDSqarmit483HiHj c4peHCMkvBWtZLcxVLS5 X55ko9P8EZOgVGRi STW5wAC2kQ6upSpyibfv bGVmdDsgdmVydGljYWwt IIixY431ZSOpfFzmQaIq tTl1E3ZfAgh2DFOv kKfbCO1ekAYfYAzqGa0s tWcjwScpDR8bABFmupca y709UgLct5hbZYNrrAUd BYslKVU4C55ol5Z0 CJNrKCKjDXB7qBX9yX9y bGlnbjogbGVmdDsgdmVy wTxoDEbxXGwjZ509PZFh cDsnPlBhdGllbnQg SAztXOn7I5KbXujyqZW+ RU91LAIdYL59fAPmjTSt h9qbzKy1AgJiOCEdJSZ3 xVerPHpin9VyOGPm J41zmJClq2W9HQKpxJaq rAGrYqGtnOW3lD4gAFlt ipfzj2nbgkawGeugr0tv qw01uK21T40rUIzj ZHRoPSIzMCUiIHZhbGln ty5dgU1fMw5+PGNvbCB3 qXT4xE7mAUBoKlG4IZdc K202GzJzqYKbKtqt v9bti5vmtHp2GcA5TVRj oqStePgjJPF3p8XvUs76 V31kHTglQLZtDJNyXHDu AUNxaXqtaj6lbR0j Ii8+WTEpjVM8aND6nJ5h AfAxIdA6JHihY104MlOg xKTcMpglW74pD9PfgVK+ XIVlIyd9RSMpsPvv NY4liVPuETcqEm5iOUB3 AcPrZkIlPSzmT1ZaEWOo cmofvxwbeZL6GFGuPIJu hX79It2ojJpnPPEi fIBMiD8nmlyph1lngufm WzFoZYDhHEt3CTk9HBPl oJigZdPvPSS3SvR5CUM6 dXDdwN4bmHlzrlay jE6qS8DsYVEqgatcLa01 kA4mRcWsZxZ5VHcfFsk+ QlJPRUNLRUwsIFNJRVJS NBHBNS85CU94jTFe j9L9lAO2Y1MaDIUillct huywvZP8KCOyUZDtmH49 vUHsGLsySy9xs2L9f645 TAJtJIXjnB62Xp0h nApnDUFbiPGCwH9dlhzs l1iprvjoJeUkPUXxWMg7 VXb5PMCvoGauRgZuSCQ6 FcM1GSJ5rIOizO4u iCuiyqiueA9sGys+MTAv KpmjNPg9GObyhST+PHRk OYQ4jBupAUyvYLQoqS7r CDQmT3q0WlSwRnQ7 YFoyS0TxSDJplbejLn91 fW3bCsFsLkW1APemD4Jg wxP2RYEskYDyADxjYTC6 R52tb0K7WNUfKTZk BZI1sOS5hM0izPdqakfx bGVmdDsgdmVydGljYWwt IRlfG259BOAmpAlzGaZ4 BFdcHFEmEW73AI43 qGCfq4Z9yQX7T8JtPCTo iomifoateRG3SZIqZPFk rE30jNTuNUqbEg1wo1R9 h460SRHrGWOfwX32 Qu1bgFhkTWWrmAUPnD3p lyzql8sjozkiDdEfYUOd PCf1JQe7IMZplDcuZvVn QBR1JfD0CPW6mSJe dC7krFmjabdsqD4vFuk+ KmWsDYdiRF46EB21pHRd g2Q6nOJ3B5JaNDVawobg gxmfqPM8JFNmNMPa pA21cWKdIKdxIa2vi2O5 t127GBXaIBRrkL96El2o uWjzVTBcfQQIvR1vrqgs o4kquyboBeReSFPc SOd2NJx9FZFixLdwAhKm BGO3McE5NYH0tXIggC3m pWofkwwxeN6yFaf+T3V0 hPL8yHFseVlvvEZ+ BG74eh77F3FuHbfdFyi5 JPGkSBT7vQN5tS2nJFCm TVxnc2X5oZO4Q4EodgXx yr1mg5pjKJNjVAha N96uxAKfm0J1OAYiqJP6 KCSiwLpuWcBcsP45Jth+ MNTzhNlvk6MrYibhn9eq x2tlxKq8AsFvULXy chCejUfvMOK8c3AhBk03 V59yRVegSRDhOCFeDDMa VCGviIfiye4vsA1bQo0+ NCAtfHU7zVP0qT4m BoZaKpP6GDhdG519PuGc rYEsYhjcb1jfp1ilxWb0 IjIwJSIgdmFsaWduPSJ0 j2BpVy69X8DnkTwm v5LhTha1cn81qAGei5X7 hGL3H5OnQYNcnrkeoEOa cRhvLV2zXYObfvboANId mH5rZBCwT8g7VgIf AfG0ROpfL4XayhP6SINw lBHcUYCvoFUImE0cjosl i1vtkzqjGeGzPBDuRMy2 YAb7LVByrFkoBoSm ISW5SzN1JNY9vXGmwB0l pLphfkbmsK9nOgo+UGh5 o5nwgNGtJG2dzWR2YZ49 HD76mSGgo1R7pSC2 Q7SkIAOilzhdbmppyQV8 JXTtVBEkmN62Iw8rcPkz Vl9cCXFuNFX4WGEmxSIa H5AnyD2bOlDxYWXw SCLzZ3BdqSVcMBswL303 JSrtCwJ3OZPkfuCvB8Fq YVEwsQqaTrU6s8K8Qf1V QT35GZ07SQ47eHLz f9C6iIK5R2McIXSyygld xqxreOW4GHNsLEPlqD05 Cq2kiQutUc1xYCDeSHS4 RYRzxQDrL4PglM0w KcGoRSXbTGTqQ4RaiQQw EWwjP113RCbqJuI4CGId yrQzT3JkGZNtcAvsDqT2 x1Y1Oy3RPh69JS48 AE57iSWod8N5bKO2Z3Qw SJGacwlutrrltJW2FBLg JFFkpW56Hg1dpTetMb2t JQFpAPE9UGTeiQQz R6TbkB0gQhQdEFPjDRVg H0XovYRfOSmmM235SGxq GiF2JJTumaYaR7PtNNFc jDcmOdZ4n3Q5Cs6V SDdjmsp5V4YnDuoaxWL+ BW00GNGmWE03lEZjiMSo e1cxsNb2McPdWRIgQDZ5 aDthXIyly0HfESRb [id number] (more content not included)... Normal [facility] CHEMISTRYOrdered By: SYSTEM SYSTEM on 09-07-2023 Free T4 [Mass/Vol] 0.92 ng/dL Normal 0.58 - 1.64 ng/dL Remisol Chem TSH Qn 3.37 m[IU]/L Normal 0.34 - 5.60 mcIU/mL Remisol Chem Consent for Treatmenton 08-19 Consent for Treatment [id number] #1.00TIFF Normal [facility] Free T4on 09-07-2023 Free T4 [Mass/Vol] 0.92 ng/dL Normal 0.58-1.64 [facility] Comment on above: Performed By: #### [id number] #### [facility] [address] [place] [address] TSHon 09-07-2023 TSH Qn 3.37 m[IU]/L Normal 0.34-5.60 [facility] Comment on above: Performed By: #### [id number] #### [facility] [address] [place] [address] Ambulatory Visit Summaryon 0 08-08-2023 Ambulatory Visit [...] you for choosing us for your care. Godfrey Barry [facility] Medicine Office/Clini c Noteon 08-08-2023 Family Medicine [...] Unspecified hemorrhoids) Resolved, no additional complaints. saw [facility] for screening colonoscopy/diagnost ic colonoscopy due to [...] will continue to follow with Dr. Marshall rechjosie CBC Portions of this record may have been created with voice recognition artificial intelligence software, specifically [employer], [employer] and or [employer]. Substitutions may have occurred due to the [...] Alcohol Curren (more content not included)... [facility] Comment on above: Result Comment: Elec [...] Follow these instructions at home: ? Take yeon-hlm-etghayc and prescription medicines only as told by [...] provider. Document Revised: 03/09/2022 Document Reviewed: 03/09/2022 [employer] Patient Education ? 2022 Etix. Gastroenterology Hemorrhoids Hemorrhoids are swollen veins in and around the rectum or anus. There are two types of hemorrhoids: ? Internal hemorrhoids. These occur in the veins that are just inside the rectum. They may poke through to the outside and become irritated and painful. ? External hemorrhoids. These occur in the veins that are (more content not included)... [facility] PAP [id number] 05-20-2023 C. trachomatis rRNA FRANSISCO+probe Ql (Cvx) Negative Invalid Interpretation Code Negative [facility] Comment on above: Performed By: #### 1 [id number] ####[facility] [address] [place] [address] Cytology report Cyto stain Doc (Cvx/Vag) Note Invalid Interpretation Code [facility] Comment on above: Result Comment: TEST S RESULT FLAG UNITS REF RANGE LAB Clinician Provided Cytology Information Source.............Cervix No. of containers..01 ThinPrep Vial DIAGNOSIS: 01 NEGATIVE FOR INTRAEPITHELIAL LESION OR MALIGNANCY. Specimen adequacy: 01 Satisfactory for evaluation. Endocervical and/or squamous metaplastic cells (endocervical component) are present. Performed by: Sugar Mckenzie, Stitch Bonder Machine Operator Helper (ASCP) . 01 Note: Note 01 The Pap [...] High <-Panic Low,>-Panic High,A-Abnormal,AA-Critical Abnormal Performed at: [facility] [address] Sugey Torres MD, Performed By: #### 1 [id number] ####[address] [place] [address] HPV 16+18+31+33+35+39+45 +51+52+56+58+59+66+6 8 DNA Probe+sig amp Ql (Cvx) Negative Invalid Interpretation Code Negative [facility] Comment on above: Result Comment: This nucleic acid amplification test detects fourteen high-risk HPV types (16,18,31,33,35,39,45,51,52,56,58,59,66,68) without differentiation. Performed By: #### 1 [id number] ####[address] [place] [address] N. gonorrhoeae rRNA FRANSISCO+probe Ql (Cvx) Negative Invalid Interpretation Code Negative [facility] Comment on above: Performed By: #### 1 [id number] ####[address] [place] [address] T. vaginalis rRNA FRANSISCO+probe Ql (Unsp spec) Negative Invalid Interpretation Code Negative [facility] Comment on above: Result Comment: Perf ormed at: [facility] [place] [address] [place], [place] [id number] MD Brian Mayes Performed at: =G [facility] [address] [place] [place], [place] [id number] MD Brian Mayes Performed By: #### 1 [id number] ####[facility] [address] [place] [address] Family Medicine Office/Clini c Noteon 05-16-2023 Family [...] was performed without the assistance of medical health researcher as witness Pelvic Exam: Vulva: normal appearance, [...] up every 3-5 years based on results CHILD SUPPORT CASE OFFICER referral if needed for further testing or [...] 6 months (more content not included)... [facility] Comment on above: Result Comment: Elec tronically Signed By: Ya Wang\.br\Date and Time Signed: 05/16/23 15:38 EST PAP [id number] 05-16-2023 Gynecological Body Site CERVIX [facility] Comment on above: Performed By: #### 1 [id number] ####[facility] [address] [place] [address] Patient Educationon 05-16-19 24 Patient Education Obstetrics [...] including vitamins, herbs, eye drops, creams, and ouwx-mah-yjhpict medicines. ? Any bleeding problems you have. [...] provider. Document Revised: 06/05/2021 Document Reviewed: 06/05/2021 [employer] Patient Education ? 2022 Etix. Oncology Cancer Screening for Women A cancer [...] How i (more content not included)... [facility] Consent for Treatmenton Consent for Treatment [id number] #1.00TIFF [facility] UA With Cult Reflexon 2023 Bilirubin Ql (U) Negative Normal Negative [facility] Comment on above: Performed By: #### 1 [id number] ####[facility] [address] [place] [address] Clarity (U) CLEAR Normal Clear [facility] Comment on above: Performed By: #### 1 1192935 ####[facility] [address] [place] [address] Color (U) YELLOW Normal Yellow [facility] Comment on above: Performed By: #### 1 [id number] ####[facility] [address] [place] [address] Epithelial cells.squamous LM.HPF (Urine sed) [#/Area] 0-2 Normal 0-2 [facility] Comment on above: Performed By: #### 1 [id number] ####[facility] [address] [place] [address] Glucose Test strip (U) [Mass/Vol] Negative Normal Negative [facility] Comment on above: Performed By: #### 1 [id number] ####[facility] [address] [facility] [address] Hemoglobin Ql (U) Negative Normal Negative [facility] Comment on above: Performed By: #### 1 5592574 ####[facility] [address] [place] [address] Ketones (U) [Mass/Vol] Negative Normal Negative [facility] Comment on above: Performed By: #### 1 5702633 ####[facility] [address] [place] [address] [place].plasma/Lithi um.RBC (Bld) [Mass ratio] 0-3 Normal 0-3 [facility] Comment on above: Performed By: #### 1 3243311 ####[facility] [address] [facility] [address] Nitrite Ql (U) Negative Normal Negative [facility] Comment on above: Performed By: #### 1 [id number] ####[facility] [address] [place] [address] pH (U) 6.0 [pH] Invalid Interpretation Code 5.0-9.0 [facility] Comment on above: Performed By: #### 1 [id number] ####[address] [address] Protein (U) [Mass/Vol] Negative Normal Negative [facility] Comment on above: Performed By: #### 1 7357126 ####[place] [address] Specific gravity (U) [Rel density] >=1.030 Invalid Interpretation Code 1.005-1.030 [facility] Comment on above: Performed By: #### 1 4497568 ####[place] [address] Type of Urine collection method Clean Catch Normal [facility] Comment on above: Performed By: #### 1 5551079 ####[place] [address] Urobilinogen Qn (U) 0.2 {Mehdi'U}/dL Normal 0.0-1.0 [facility] Comment on above: Performed By: #### 1 8234509 ####[place] [address] WBC Auto Ql (U) Negative Normal Negative [facility] Comment on above: Performed By: #### 1 [id number] ####[place] [address] WBC LM.HPF (Urine sed) [#/Area] 0-5 Normal 0-5 [facility] Comment on above: Performed By: #### 1 [id number] ####[place] [address] URINALYSISOrdered By: Alphonso Wang on 03-24-2023 Bilirubin Ql (U) Negative (03/24/23 11:15 AM) Normal Negative [facility] UA Auto SS Clarity (U) Clear (03/24/23 11:15 AM) Normal Clear [facility] UA Auto SS Color (U) Yellow (03/24/23 [...] AM) Normal Negative [facility] UA Auto SS [place].plasma/Lithi um.RBC (Bld) [Mass ratio] 0-3 /HPF Normal 0-3/HPF [facility] UA Auto SS Nitrite Ql (U) Negative (03/24/23 11:15 AM) Normal Negative [facility] UA Auto SS pH (U) 6.0 *NA* (03/24/23 11:15 AM) Invalid Interpretation Code 5.0 - 9.0 [facility] Auto SS Protein (U) [Mass/Vol] Negative (03/24/23 11:15 AM) Normal Negative [facility] UA Auto SS Specific gravity (U) [Rel density] >=1.030 *NA* (03/24/23 11:15 AM) Invalid Interpretation Code 1.005 - 1.030 [facility] UA Auto SS UA Spec Desc Clean Catch (03/24/23 11:15 AM) Normal [facility] UA Auto SS Urobilinogen Qn (U) 0.3440975 {Mehdi'U}/dL Normal 0.0 - 1.0 EU/dL [facility] UA Auto SS WBC Auto Ql (U) Negative (03/24/23 11:15 AM) Normal Negative [facility] UA Auto SS WBC LM.HPF (Urine sed) [#/Area] 0-5 /HPF Normal 0-5/HPF [facility] UA Auto SS T3 Freeon 03-23-2023 Free T3 [Mass/Vol] 2.9 pg/mL Invalid Interpretation Code 2.0-4.4 [facility] Comment on above: Result Comment: Perf ormed at: [facility] [address] [id number] PhD Haider Barraza Performed By: #### 2 169667, 0755931, 8232883 ####[facility] [address] [place] [address] US Retroperitoneal Completeo n 03-23-2023 US Retroperitoneal [...] MD Transcribed by: RAZIA Technologist: MICHAEL Normal [facility] CHEMISTRYOrdered By: SYSTEM SYSTEM on 03-22-2023 Free T4 [Mass/Vol] 1.10 ng/dL Normal 0.58 - 1.64 ng/dL Remisol Chem TSH Qn 0.90 m[IU]/L Normal 0.34 - 5.60 mcIU/mL Remisol Chem Consent for Treatmenton Consent for Treatment [id number] #1.00TIFF Normal [facility] Free T4on 03-22-2023 Free T4 [Mass/Vol] 1.10 ng/dL Normal 0.58-1.64 [facility] Comment on above: Performed By: #### 2 653954, 4576081, 9461821 ####[facility] [address] [place] [address] TSHon 03-22-2023 TSH Qn 0.90 m[IU]/L Normal 0.34-5.60 [facility] Comment on above: Performed By: #### 2 643204, 8234844, [id number] ####[facility] [address] [place] [address] C Urineon 03-11-2023 Bacteria identified Cx Nom (U) Microbiology PROCEDURE: Urine Culture [R1] SOURCE: U CleanCatch BODY SITE: COLLECTED DATE/TIME: 03/09/2023 08:03 EST RECEIVED DATE/TIME: 03/09/2023 16:49 EST START DATE/TIME: 03/09/2023 16:49 EST FREE TEXT SOURCE: Norberto BARTLETT, Ya BARTLETT, Ya Alexandre FINAL REPORTS Final Report [] [...] Locations R1: This test was performed at: [facility], [address] [place] [address], [facility] , , Normal [facility] Comment on above: Performed By: #### 2 076018 ####[facility] [address] [place] [address] Family Medicine Office/Clini c Noteon 03-11-2023 Family [...] due to her gallbladder. She saw a block hacker in 11/2022. She is able to schedule [...] shows: Negat (more content not included)... [facility] Comment on above: Result Comment: Elec tronically Signed By: Norberto BARTLETT, Ya Alexandre\.br\Date and Time Signed: 03/11/23 06:06 EST\.br\Electronically Co-Signed By: Annetta Blackburn.irvin\Date and Time Co-Signed: 03/09/23 12:22 EST Ambulatory Visit Summaryon 1 05-10-2022 Ambulatory Visit Summary YANA CHURCH :2000 Visit Date:03/09/2023 Ambulatory Visit Instructions Your Diagnosis BMI 21.0-21.9, adult Feeling of incomplete bladder emptying Other cystitis with hematuria Hypothyroidism Tests Performed Urnls Dip Stick Auto w/o Microscopy POC 74528 Your Care Team Attending Physician - Ya [...] 10:00 AM EDT With: Ya Wang Where: [facility] Normal Recurrent UTI (urinary tract infection), pp_set_radiology_ subspecialty, [facility]\.br\ Medications\.br\ What How Much When Why Instructions\.br\ New cephalexin (Keflex 500 mg Cap) 1 Capsules By Mouth 4 times a day Feeling of incomplete bladder emptying Recurrent UTI (urinary tract infection) Duration: 7 Days Pickup at [facility]\.br\ New phenazopyridine (Pyridium 200 mg Tab) 1 Tablets By Mouth 3 times a day Feeling of incomplete bladder emptying Recurrent UTI (urinary tract infection) Duration: 3 Days Pickup at [facility]\.br\ Unchanged levothyroxine (Synthroid 112 mcg Tab) [...] instructions Prior to colonoscopy. \.br\ Pharmacy Information\.br\ [facility]: [address] [place], [place] [id number] [phone]\.br\ Test Results\.br\ Urnls Dip Stick Auto w/o Microscopy POC 46409 (03/09/2023)\.br\ Bilirubin Urine Dipstick - Negative\.br\ Blood Urine Dipstick - Trace-intact\.br\ Glucose Urine Dipstick - Negative\.br\ Ketones Urine Dipstick - Negative\.br\ Leukocytes Urine Dipstick - Trace\.br\ Nitrite Urine Dipstick - Negative\.br\ Protein Urine Dipstick - Negative\.br\ Specific [place] Urine Dipstick - 1.020\.br\ Urine Appearance Urine [...] including vitamins, herbs, eye drops, creams, and tbkd-zpu-qujwknx medicines.\.br\ ? \.br\ Whether you are or [...] nerves are communicating with your muscles.\.br\ What [facility] Patient Educationon 03-09-20 Patient Education Endocrinology Hypothyroidism [...] Follow these instructions at home: ? Take gkda-kal-ikesdbo and prescription medicines only as told by [...] provider. Document Revised: 03/09/2022 Document Reviewed: 03/09/2022 [employer] Patient Education ? 2022 Etix. Obstetrics and Gynecology Urinary Tract Infection, Adult A urinary tract infection (UTI) is an infection of any part of the urinary tract. The urinary tract includes the kidneys, ureters, bladder, and urethra. These organs make, store, and get rid of urine in the body. An upper UTI affects the ureters and kidneys. A lower UTI affects the bl (more content not included)... [facility] Physician Referralon 023 Physician Referral [id number] #1.00TIFF [facility] Provider Letteron 03-02-2023 Provider Letter March 02, 2023 YANA CHURCH [address] [place] [id number] : [address] Clay Waters is know on your insurance & we are able to schedule your EGD & Colonoscopy. Please call us at [phone] at your [facility] convenience to schedule your procedure. Thank you for your prompt attention to this matter. Sincerely, [facility] Digestive Health [facility] Reminderson 03-02-2023 Reminders - From: Erum Gold To: [facility] - Reminders/Recalls; Sent: 11/30/2022 12:34:03 EDT Show up: 11/30/2022 12:34:00 EDT Subject: Ambulatory Reminder [employer] Reminder/Recall Call pt and scheduled EGD and Colonoscopy with Dr. Williamson once [employer] is approved. - From: Rusty Alfred ([facility] - Reminders/Recalls) To: Yue Perez; Sent: 12/28/2022 [...] patient to call office to schedule [facility] C Urineon 02-23-2023 Bacteria identified Cx [...] Locations R1: This test was performed at: [facility], [address] [place] [address], [address] , [place], Normal [facility] Comment on above: Performed By: #### 2 [id number] ####[facility] [address] [place] [id number] [facility] Medicine Office/Clini c Noteon 02-21-2023 Family Medicine [...] color was orange in appearance due to qtmk-krw-omjschg meds she was taking, normal urobilinogen pH [...] day(s), # 10 cap(s), Refills(s) 0, Pharmacy: [facility], 166, cm, 02/21/23 13:06:00 EST, Height/Length Dosing, 58.6, kg, 02/21/23 13:06:00 EST, Weight Dosing phenazopyridine, 200 mg = 1 tab(s), Oral, TID, X 3 day(s), # 9 tab(s), Refills(s) 0, Pharmacy: [facility], 166, cm, 02/21/23 13:06:00 EST, Height/Length Dosing, 58.6, kg, 02/21/23 13:06:00 EST, Weight Dosing Urine Culture Urnls Dip Stick Auto w/o Microscopy POC 10043 2. Acute cystitis (N30.00: Acute cystitis without hematuria) #1 3. Constipation in female (K59.00: Constipation, unspecified) improving. occasional Colace OTC and Miralax 4. Hemorrhoids (K64.9: Unspecified hemorrhoids) improving, stable 5. Hypothyroidism (E03.9: Hypothyroidism, unspecified) Chronic Stable with 112 mcg daily of Synthroid _ control Weight is stable Asymptomatic- noteable tachycardia today Du (more content not included)... [facility] Comment on above: Result Comment: Elec [...] these instructions at home: Medicines ? Take mujp-yrg-ktggwxh and prescription medicines only as told by [...] provider. Document Revised: 10/17/2020 Document Reviewed: 10/17/2020 [employer] Patient Education ? 2022 Etix. [facility] Ambulatory Visit Summaryon 0 11-30-2022 Ambulatory Visit [...] 1:00 PM EST With: Ya Wang Where: [facility] Gastroenterology Office/Clin ic Noteon 11-30-2022 [...] Refill(s) 0, Prior to colonoscopy., [id number], 166, cm, 11/30/22 12:12:00 EDT, Height/Length Dosing, [...] Hypothyroidism Left (more content not included)... [facility] Comment on above: Result Comment: Elec [...] Bulgur wheat. Millet. Quinoa. Bran muffins. Popcorn. [place] wafer crackers. Meats and other proteins [place] beans, kidney beans, and díaz beans. Soybeans. [...] Cream cheese. Sour cream. Fats and oils [place]. Beverages Soft drinks. Other foods Cakes and [...] provider. Document Revised: (more content not included)... [facility] Pre-Certification Formon Pre-Certification Form [id number] 1#1.00CD:127 [facility] Family Medicine Office/Clini c Noteon 11-11-2022 [...] visit we encourage proper diet and exercise obir-sey-uedzfdv MiraLAX or Colace with Preparation H wnez-izx-rpxlemp, bleeding has stopped, blood noted on toilet [...] Rectal exam was performed, I did offer hydramatic specialist but patient declined, external anus is normal [...] length of time on toilet, sitz bath's, fjee-grh-ggudjrl medications and suppositories and creams Hydrocortisone lidocaine with applicator gel ordered today to use twice daily Referral for GI referral placed today Ordered: hydrocortisone-lidoc letty topical, 1 carmen, Rectal, BID, 60 EA, Refill(s) 1, [facility], 166, cm, 11/11/22 9:28:00 EDT, Height/Length Dosing, 59.4, kg, 11/11/22 9:28:00 EDT, Weight Dosing [facility] Internal Ambulatory Referral 2. [...] azelastine ophthalmic, (more content not included)... [facility] Comment on above: Result Comment: Elec tronically Signed By: Ya Wang\.irvin\Date and Time Signed: 11/11/22 09:53 EDT Patient [...] serving. ? Talk with a diet and talent sourcing specialist (dietitian) if you have questions about [...] Bulgur wheat. Millet. Quinoa. Bran muffins. Popcorn. [place] wafer crackers. Meats and other proteins [place], kidney, and díaz beans. Soybeans. Split peas. [...] Cream cheese. Sour cream. Fats and oils [place]. Beverages Soft drinks. Other foods Cakes and [...] 03/07/2006 Document Revised: 01/09/2018 Document Reviewed: 01/09/2018 [employer] Patient Education ? 2019 Etix. Gastroenterology H (more content not included)... [facility] Ambulatory Visit Summaryon 0 10-08-2022 Ambulatory Visit Summary YANA CHURCH :2000 Visit Date:10/08/2022 Ambulatory Visit Instructions Your [...] Schedule the Following Appointments Follow Up with Ya Wang, [facility], MED When: Comments: 6 mo f/u for hypothyroid, weight loss Where: [address], [address] [address]- Business (1) You Need to Complete the Following Anti-thyroid Abys, Blood, Routine collect, 10/08/22, Order for future visit, Lab Collect, Weight loss Invalid Interpretation Code Hypothyroidism [facility] Auto Diffon 10-08-2022 Basophils/100 WBC (Bld) 1.1 % Normal 0.0-2.0 [facility] Comment on above: Order Comment: Order Added by Discern Expert. Performed By: #### 2 342107, 48095685, 34320102, 3951712, 4171227 ####[address] [place] [address] Basophils/Leukocytes Auto (Bld) [Pure # fraction] 0.1 E9/L Normal 0.0-0.2 [facility] Comment on above: Order Comment: Order Added by Discern Expert. Performed By: #### 2 447095, 98031999, 39337073, 4162497, 3947472 ####[address] [place] [address] Eosinophils/100 WBC (Bld) 1.2 % Normal 0.0-8.0 [facility] Comment on above: Order Comment: Order Added by Elle Expert. Performed By: #### 2 199191, 78951755, 81211578, 8699278, 5757829 ####[address] [address] Eosinophils/Leukocyt es Auto (Bld) [Pure # fraction] 0.1 E9/L Normal 0.0-0.5 [facility] Comment on above: Order Comment: Order Added by Elle Expert. Performed By: #### 2 199375, 96246523, 91303716, 5646101, 3101629 ####[address] [address] Lymphocytes/100 WBC (Bld) 41.0 % Normal 14.0-50.0 [facility] Comment on above: Order Comment: Order Added by Discern Expert. Performed By: #### 2 919087, 49189421, 25562701, 6600201, 1011537 ####[address] [address] Lymphocytes/Leukocyt es Auto (Bld) [Pure # fraction] 2.3 E9/L Normal 1.0-4.0 [facility] Comment on above: Order Comment: Order Added by Elle Expert. Performed By: #### 2 163685, 02172090, 84946919, 7150770, 9773359 ####[facility] [address] [place] [address] Monocytes/100 WBC (Bld) 5.8 % Normal 4.0-14.0 [facility] Comment on above: Order Comment: Order Added by Discern Expert. Performed By: #### 2 436507, 46685150, 90826040, 3644622, 4974360 ####[address] [place] [address] Monocytes/Leukocytes Auto (Bld) [Pure # fraction] 0.3 E9/L Normal 0.2-1.0 [facility] Comment on above: Order Comment: Order Added by Discern Expert. Performed By: #### 2 934538, 02539704, 60988809, 5171020, 9377045 ####[address] [address] Neutrophils/100 WBC (Bld) 50.9 % Normal 36.0-75.0 [facility] Comment on above: Order Comment: Order Added by Discern Expert. Performed By: #### 2 618323, 82341952, 97637741, 1882395, 5077584 ####[address] [address] Neutrophils/Leukocyt es Auto (Bld) [Pure # fraction] 2.8 E9/L Normal 2.0-7.5 [facility] Comment on above: Order Comment: Order Added by Discern Expert. Performed By: #### 2 724241, 82277860, 47311751, 4009249, 4940573 ####[address] [place] [address] CBC w/ Auto Diffon 3 Erythrocyte distribution width (RBC) [Ratio] 12.6 % Normal 10.9-14.2 [facility] Comment on above: Performed By: #### 2 637635, 14253291, 73177864, 6879539, 6675536 ####[address] [place] [address] Hematocrit (Bld) [Volume fraction] 40.4 % Normal 34.0-46.0 [facility] Comment on above: Performed By: #### 2 834330, 55147461, 65277397, 0801464, 2131178 ####[facility] [address] [place] [address] Hemoglobin (Bld) [Mass/Vol] 14.1 g/dL Normal 12.0-16.0 [facility] Comment on above: Performed By: #### 2 401269, 87033425, 18139195, 7788197, 6859080 ####[address] [address] MCH (RBC) [Entitic mass] 32.1 pg Normal 27.0-34.0 [facility] Comment on above: Performed By: #### 2 049733, 86397923, 87130232, 8527958, 1746785 ####[address] [address] MCHC (RBC) [Mass/Vol] 34.8 g/dL Normal 31.4-36.0 [facility] Comment on above: Performed By: #### 2 921839, 76191262, 47951550, 8455903, 6123999 ####[address] [address] MCV (RBC) [Entitic vol] 92.1 fL Normal 80.0-100.0 [facility] Comment on above: Performed By: #### 2 125709, 52263248, 13347973, 7582447, 8434147 ####[facility] [address] [place] [address] Platelet mean volume (Bld) [Entitic vol] 9.1 fL Normal 6.4-10.8 [facility] Comment on above: Performed By: #### 2 741526, 41937559, 50639904, 8096302, 8655051 ####[address] [address] Platelets (Bld) [#/Vol] 238.0 E9/L Normal 150.0-500.0 [facility] Comment on above: Performed By: #### 2 610025, 34905892, 94828683, 2746145, 2899670 ####[facility] [address] [place] [address] RBC (Bld) [#/Vol] 4.4 E12/L Normal 4.3-5.9 [facility] Comment on above: Performed By: #### 2 475582, 43299555, 26712690, 7234537, 2140334 ####[address] [address] [place] [address] WBC corrected for nucl RBC Auto (Bld) [#/Vol] 5.6 E9/L Normal 4.0-11.0 [facility] Comment on above: Performed By: #### 2 077628, 86069523, 11702937, 1486812, 5544101 ####[address] [address] CMPon 10-08-2022 Albumin [Mass/Vol] 4.7 g/dL Normal 3.3-5.0 [facility] Comment on above: Performed By: #### 2 302305, 63105507, 10490825, 0503712, 3542439 ####[address] [place] [address] Albumin/Globulin (S) [Mass conc ratio] 1.5 Normal 1.1-2.2 [facility] Comment on above: Performed By: #### 2 851241, 87452948, 25810254, 8533030, 6095256 ####[facility] [address] [place] [address] ALP [Catalytic activity/Vol] 42 Int._Unit/L Normal 21-98 [facility] Comment on above: Performed By: #### 2 633429, 73228085, 95941500, 7136437, 2192928 ####[address] [place] [address] ALT No additional P-5'-P [Catalytic activity/Vol] 15 Int._Unit/L Normal 6-46 [facility] Comment on above: Performed By: #### 2 [id number], [id number], [id number], 1258894, 7653764 ####[facility] [address] [place] [address] Anion gap [Moles/Vol] 13 mmol/L Normal 6-16 [facility] Comment on above: Performed By: #### 2 429193, [id number], [id number], 4111288, 7841911 ####[facility] [address] [place] [address] AST [Catalytic activity/Vol] 22 Int._Unit/L Normal 5-43 [facility] Comment on above: Performed By: #### 2 313661, [id number], 18091290, 8991576, 0616575 ####[facility] [address] [place] [address] Bilirubin [Mass/Vol] 0.5 mg/dL Normal 0.0-1.1 [facility] Comment on above: Performed By: #### 2 305724, 83657533, 56494047, 7680020, 8307610 ####[facility] [address] [place] [address] Calcium [Mass/Vol] 9.4 mg/dL Normal 8.9-11.1 [facility] Comment on above: Performed By: #### 2 040365, 88893594, 58062423, 8680367, 2181780 ####[facility] [address] [place] [address] Chloride [Moles/Vol] 107 mmol/L Normal 101-111 [facility] Comment on above: Performed By: #### 2 044760, 15039203, 40712927, 7733084, 4967841 ####[facility] [address] [place] [address] CO2 [Moles/Vol] 24 mmol/L Normal 21-31 [facility] Comment on above: Performed By: #### 2 676731, 55407371, 91246423, 1763243, 9893571 ####[facility] [address] [place] [address] Creatinine [Mass/Vol] 0.7 mg/dL Normal 0.5-1.3 [facility] Comment on above: Performed By: #### 2 016739, 97707457, 17636831, 7754789, 9003080 ####[facility] [address] [place] [address] Globulin (S) [Mass/Vol] 3.2 g/dL Normal 1.4-4.0 [facility] Comment on above: Performed By: #### 2 948439, 31799582, 55918823, 6619320, 5132195 ####[facility] [address] [place] [address] Glucose [Mass/Vol] 105 mg/dL Normal 55-199 [facility] Comment on above: Result Comment: If t his glucose result represents a fasting glucose, interpretation should refer to the following reference range: 55-99 mg/dL Performed By: #### 2 610433, 78928464, 22765707, 1849838, 8421428 ####[facility] [address] [place] [address] Potassium [Moles/Vol] 3.9 mmol/L Normal 3.5-5.3 [facility] Comment on above: Performed By: #### 2 406231, 92190928, 01288411, 7200353, 2504657 ####[facility] [address] [place] [address] Protein [Mass/Vol] 7.9 g/dL High 6.0-7.8 [facility] Comment on above: Performed By: #### 2 812132, 30670719, 52751024, 4600353, 5369657 ####[facility] [address] [place] [address] Sodium [Moles/Vol] 140 mmol/L Normal 135-145 [facility] Comment on above: Performed By: #### 2 213899, 04140165, 54863243, 5462978, 8741783 ####[facility] [address] [place] [address] Urea nitrogen [Mass/Vol] 17 mg/dL Normal - [facility] Comment on above: Performed By: #### 2 165374, 89315451, 11122289, 8195912, 9628357 ####[facility] [address] [place] [address] Urea nitrogen/Creatinine [Mass ratio] 24 No Units High 10- [facility] Comment on above: Performed By: #### 2 369739, 62975799, 38854757, 7791722, 3321246 ####[facility] [address] [place] [address] Consent for Treatmenton 09-19 Consent for Treatment [id number] #1.00CD:127 Normal [facility] Family Medicine Office/Clini c Noteon 10-08-2022 Family Medicine [...] Dr Marshall scheduled for nov 2022 Specialists: Rubber Grinder: Bird Álvarez in [place]- contacts most of the time, Dentist: ROSARIO - no issues- Dr Nila MARSHALL- [facility] Review of Systems PHQ Score Initial Depression [...] Pap testing and gynecologic screenings per her SAND SLINGER. Discussed self breast exams and other health [...] and exercise increasing. Patient encouraged to use igyu-ghp-wtcpasj MiraLAX or Colace, encouraged Preparation H jgoj-hsl-tjuqnsl topical treatments if needed. \ Follow-up only if needed. Patient only having minimal complaints 3. Constipation in female (K59.00: Constipation, unspecified) see #3 4. BMI 20.0-20.9, ad (more content not included)... Normal [facility] Comment on above: Result Comment: Elec [...] instructions at home: General instructions ? Take pkge-cdb-vkimpfq and prescription medicines only as told by your health care provider. ? Monitor your blood glucose as told by your health care provider. ? If you drink alcohol: ? Limit how much you have to: ? 0?1 dr (more content not included)... Normal [facility] TSH With T4fr Reflexon 10-08 TSH Qn 0.58 m[IU]/L Normal 0.34-5.60 [facility] Comment on above: Performed By: #### 2 334224, 60645118, 49712470, 6432660, 5012289 ####[facility] [address] [place] [address] eGFRon 10-08-2022 GFR/1.73 sq M.predicted among non-blacks MDRD (S/P/Bld) [Vol rate/Area] 124 mL/min/1.73 m2 Normal >=59 [facility] Comment on above: Order Comment: Order added by Discern Expert. Result Comment: Nuclear Waste Management Engineer erlin kidney disease could be indicated at eGFR's of less than 60 mL/min/1.73m2. Kidney failure is indicated at less than 15 mL/min/1.73m2. Performed By: #### 2 279030, 30863187, 30061254, 6068646, 9759263 ####[facility] [address] [place] [address] PAP ACOG PANEL 2: 21 to 29on 10-23-2021 . . Normal [facility] Comment on above: Performed By: #### C BC #### [facility] [address] [address] [address] Rima Charles Age Gdln ACOG Testing - [facility] Comment on above: Performed By: #### C BC #### [facility] [address] [address] [address] Rima Charles DIAGNOSIS: Comment [facility] Comment on above: Result Comment: NEGA TIVE FOR INTRAEPITHELIAL LESION OR MALIGNANCY. THIS SPECIMEN WAS RESCREENED PART OF OUR CENTRAL STERILIZATION TECHNICIAN PROGRAM. Performed By: #### C BC #### [facility] [address] [address] [address] Rima Charles Methodology: Comment [facility] Comment on above: Result Comment: This liquid based ThinPrep(R) pap test was screened with the use of an image guided system. Performed By: #### C BC #### [facility] [address] [address] [address] Rima Charles Note: Comment [facility] Comment on above: Result Comment: The Pap smear is a screening test designed to aid in the detection of premalignant and malignant conditions of the uterine cervix. It is not a diagnostic procedure and should not be used as the sole means of detecting cervical cancer. Both false-positive and false-negative reports do occur. . Performed By: #### C BC #### [facility] [address] [place] [address] Dr. Rima Charles Performed by: Comment Normal [facility] Comment on above: Result Comment: Prince Cagle, Stitch Bonder Machine Operator Helper (ASCP) Performed By: #### C BC #### [facility] [address] [place] [address] Dr. Rima Charles QC reviewed by: Comment Normal [facility] Comment on above: Result Comment: Amanda Morejon, Supervisory Stitch Bonder Machine Operator Helper (ASCP) Performed By: #### C BC #### [facility] [address] [place] [address] Dr. Rima Charles Reflex Criteria: Comment Normal [facility] Comment on above: Result Comment: The HPV DNA reflex criteria were not met with this specimen result therefore, no HPV testing was performed. . Performed By: #### C BC #### [facility] [address] [place] [address] Dr. Rima Charles Specimen adequacy: Comment Normal [facility] Comment on above: Result Comment: Sati sfactory for evaluation. Endocervical and/or squamous metaplastic cells (endocervical component) are present. Areas of partially obscuring blood are present. Performed By: #### C BC #### [facility] [address] [place] [address] Dr. Rima Charles FREE T4on 10-17-2021 Free T4 [Mass/Vol] 1.01 ng/dL Normal 0.76-1.46 [facility] Comment on above: Performed By: #### F T4 #### [facility] [address] [place] [address] Dr. Rima Charles TSHon 10-17-2021 TSH 4.997 uIU/mL Critically high 0.358-3.740 [facility] Comment on above: Performed By: #### T SH #### [facility] [address] [place] [address] Dr. Rima Charles VAGINITIS/VAGINOSIS DNA PROB Esteban 07-15-2021 Tamara species Negative Normal Negative [facility] Comment on above: Performed By: #### C BC #### [facility] [address] [place] [address] Dr. Rima Charles Gardnerella vaginalis Negative Normal Negative [facility] Comment on above: Performed By: #### C BC #### [facility] [address] [place] [address] Dr. Rima Charles Trichomonas vaginalis Negative Normal Negative [facility] Comment on above: Performed By: #### C BC #### [facility] [address] [place] [address] Dr. Rima Charles CHLAMYDIA/GONOCOCCUS FRANSISCO (SW AB/URINE/PAPon 05-09-2021 Chlamydia trachomatis, FRANSISCO Negative Normal Negative [facility] Comment on above: Performed By: #### C BC #### [facility] [address] [place] [address] Dr. Rima Charles Neisseria gonorrhoeae, FRANSISCO Negative Normal Negative [facility] Comment on above: Performed By: #### C BC #### [facility] [address] [place] [address] Dr. Rima Charles VAGINITIS/VAGINOSIS DNA PROB Esteban 05-08-2021 Tamara species Negative Normal Negative [facility] Comment on above: Performed By: #### V AGINT #### [facility] [address] [place] [address] Dr. Rima Charles Gardnerella vaginalis Negative Normal Negative [facility] Comment on above: Performed By: #### V AGINT #### [facility] [address] [place] [address] Dr. Rima Charles Trichomonas vaginalis Negative Normal Negative [facility] Comment on above: Performed By: #### V AGINT #### [facility] [address] [place] [address] Dr. Rima Charles TSHon 02-24-2021 TSH 4.494 uIU/mL Normal 0.470-4.680 [facility] Comment on above: Performed By: #### C BC #### [facility] [address] [address] [address] Rima Charles TSH RANGE SEE BELOW Normal [facility] Comment on above: Result Comment: <0.3 4 UIU/ml HYPERTHYROID 0.34-5.60 UIU/ml EUTHYROID >5.60 UIU/ml HYPOTHYROID Performed By: #### C BC #### [facility] [address] [address] [address] Rima Charles AFP MATERNAL FOR SPINA BIFID Aon 2021 AFP MoM 0.98 Normal [facility] Comment on above: Performed By: #### A FPMAT #### [facility] [address] [address] [address] Rima Charles AFP Value 36.3 ng/mL Normal [facility] Comment on above: Performed By: #### A FPMAT #### [facility] [address] [address] [address] Rima Charles AFP, Serum for Spina Bifida Report Normal [facility] Comment on above: Performed By: #### A FPMAT #### [facility] [address] [address] [address] Rima Charles Comment Comment Normal [facility] Comment on above: Result Comment: Kelly Moon, Ph.D., [facility] Director . References: Available Upon Request. . Multiples Of Median Cutoffs For AFP Elevations Gorman 2.5 Black 2.8 IDD 2.0 Twins 4.5 Abbreviation Definitions IDD - Insulin Dep Diabetes OSBR - Open Spina Bifida Risk . For further inquiries contact [employer] at [phone]. Performed By: #### A FPMAT #### [facility] [address] [address] [address] Rima Charles Gest Age Collection Date 16.0 weeks Normal [facility] Comment on above: Performed By: #### A FPMAT #### [facility] [address] [address] [address] Rima Charles Gestat, Age Based on LMP [facility] Comment on above: Result Comment: Reca lculations are not recommended when gestational dating by LMP and ultrasound are within 10 days. Performed By: #### A FPMAT #### [facility] [address] [address] [address] Rima Charles Insulin Dep Diabetes No Normal [facility] Comment on above: Performed By: #### A FPMAT #### [facility] [address] [address] [address] Rima Charles Interpretation Comment Normal [facility] Comment on above: Result Comment: Inte [...] Customer Services to discuss available options. The [employer] recommends amniocentesis be offered to women age 35 and older. Performed By: #### A FPMAT #### [facility] [address] [address] [address] Rima Charles [age] Normal [facility] Comment on above: Performed By: #### A FPMAT #### [facility] [address] [place] [address] Dr. Rima Charles Multiple Gestation No Normal [facility] Comment on above: Performed By: #### A FPMAT #### [facility] [address] [address] [address] Rima Charles OS[place] 1 [place] [address] [facility] Comment on above: Performed By: #### A FPMAT #### [facility] [address] [address] [address] Rima Charles PDF . Normal [facility] Comment on above: Performed By: #### A FPMAT #### [facility] [address] [place] [address] Dr. Rima Charles Race Normal [facility] Comment on above: Performed By: #### A FPMAT #### [facility] [address] [place] [address] Dr. Rima Charles Test Results: Negative Normal [facility] Comment on above: Performed By: #### A FPMAT #### [facility] [address] [place] [address] Dr. Rima Charles HEP B SURFACE ANTIGEN SCREEN on 12-10-2020 HBsAg Screen Negative Normal Negative [facility] Comment on above: Performed By: #### H BSANS #### [facility] [address] [place] [address] Dr. Rima Charles HEPATITIS C ANTIBODYon 12-10 Hep C Virus Ab <0.1 Normal 0.0-0.9 [facility] Comment on above: Result Comment: Nega tive: < 0.8 Indeterminate: 0.8 - 0.9 Positive: > 0.9 . The CDC recommends that a positive HCV antibody result be followed up with a HCV Nucleic Acid Amplification test (987628). Performed By: #### H CV #### [facility] [address] [place] [address] Dr. Rima Charles HIV 1 AND 2 WITH REFLEXon HIV Screen 4th Generation wRfx Non-Reactive Normal Non Reactive [facility] Comment on above: Performed By: #### H IV12 #### [facility] [address] [place] [address] Dr. Rima Charles RPR QUANTon 12-10-2020 Rapid Plasma Reagin, Quant Non-Reactive Normal NonRea<1:1 [facility] Comment on above: Performed By: #### C BC #### [facility] [address] [place] [address] Dr. Rima Charles RUBELLA AB IGGon 12-10-2020 Rubella Antibodies, IgG 2.33 index Normal Immune >0.99 [facility] Comment on above: Result Comment: Non- immune <0.90 Equivocal 0.90 - 0.99 Immune >0.99 Performed By: #### R UBIGG #### [facility] [address] [address] [address] Rima Charles CBC AUTO DIFFon 12-09-2020 BASO # 0.0 103/ul Normal 0.0-0.1 [facility] Comment on above: Performed By: #### C BC #### [facility] [address] [address] [address] Rima Charles Basophils/100 WBC (Bld) 0.4 % Normal 0.2-2.0 [facility] Comment on above: Performed By: #### C BC #### [facility] [address] [place] [address] Dr. Rima Charles EO # 0.0 103/ul Normal 0.0-0.7 [facility] Comment on above: Performed By: #### C BC #### [facility] [address] [place] [address] Dr. Rima Charles Eosinophils/100 WBC (Bld) 0.6 % Critically low 0.9-7.0 [facility] Comment on above: Performed By: #### C BC #### [facility] [address] [place] [address] Dr. Rima Charles Erythrocyte distribution width (RBC) [Ratio] 12.0 % Normal 11.0-15.0 [facility] Comment on above: Performed By: #### C BC #### [facility] [address] [place] [address] Dr. Rima Charles Hematocrit (Bld) [Volume fraction] 37.5 % Normal 36.0-48.0 [facility] Comment on above: Performed By: #### C BC #### [facility] [address] [place] [address] Dr. Rima Charles Hemoglobin (Bld) [Mass/Vol] 13.2 g/dL Normal 12.0-16.0 [facility] Comment on above: Performed By: #### C BC #### [facility] [address] [place] [address] Dr. Rima Charles IG # 0.02 10e3/ul Normal 0.00-0.03 [facility] Comment on above: Performed By: #### C BC #### [facility] [address] [place] [address] Dr. Rima Charles IG % 0.3 % Normal 0.0-0.5 [facility] Comment on above: Performed By: #### C BC #### [facility] [address] [place] [address] Dr. Rima Charles LYMPH # 1.4 103/ul Normal 1.2-3.8 [facility] Comment on above: Performed By: #### C BC #### [facility] [address] [place] [address] Dr. Rima Charles Lymphocytes/100 WBC (Bld) 20.2 % Critically low 20.5-60.0 [facility] Comment on above: Performed By: #### C BC #### [facility] [address] [place] [address] Dr. Rima Charles MANUAL DIFF REQ NO Normal [facility] Comment on above: Performed By: #### C BC #### [facility] [address] [place] [address] Dr. Rima Charles MCH (RBC) [Entitic mass] 33.2 pg Normal 26.7-34.0 [facility] Comment on above: Performed By: #### C BC #### [facility] [address] [place] [address] Dr. Rima Charles MCHC (RBC) [Mass/Vol] 35.2 g/dL Normal 29.9-35.2 [facility] Comment on above: Performed By: #### C BC #### [facility] [address] [place] [address] Dr. Rima Charles MCV (RBC) [Entitic vol] 94.5 fL Normal 81.0-99.0 [facility] Comment on above: Performed By: #### C BC #### [facility] [address] [place] [address] Dr. Rima Charles MONO # 0.4 103/ul Normal 0.3-0.8 [facility] Comment on above: Performed By: #### C BC #### [facility] [address] [place] [address] Dr. Rima Charles Monocytes/100 WBC (Bld) 6.1 % Normal 1.7-12.0 [facility] Comment on above: Performed By: #### C BC #### [facility] [address] [place] [address] Dr. Rima Charles NEUT # 5.1 103/ul Normal 1.4-6.5 [facility] Comment on above: Performed By: #### C BC #### [facility] [address] [place] [address] Dr. Rima Charles Neutrophils/100 WBC (Bld) 72.4 % Normal 43.0-75.0 [facility] Comment on above: Performed By: #### C BC #### [facility] [address] [place] [address] Dr. Rima Charles Platelet mean volume (Bld) [Entitic vol] 11.2 fL Normal 9.5-13.5 [facility] Comment on above: Performed By: #### C BC #### [facility] [address] [place] [address] Dr. Rima Charles PLT 221 103/ul Normal 150-450 [facility] Comment on above: Performed By: #### C BC #### [facility] [address] [place] [address] Dr. Rima Charles RBC 3.97 106/ul Critically low 4.20-5.40 [facility] Comment on above: Performed By: #### C BC #### [facility] [address] [place] [address] Dr. Rmia Charles WBC 7.1 103/ul Normal 4.0-11.0 [facility] Comment on above: Performed By: #### C BC #### [facility] [address] [place] [address] Dr. Rima Charles CULTURE URINEon 12-09-2020 CULTURE URINE Culture Observations: No growth Normal [facility] Comment on above: Performed By: #### C BC #### [facility] [address] [address] [address] Rima Charles GLYCOHEMOGLOBIN A1Con 2020 ADA RECOMMENDATION ADA THERAPEUTIC TARGET 6.0 - 7.0 ACTION SUGGESTED > 7.0 Normal [facility] Comment on above: Performed By: #### A 1C #### [facility] [address] [place] [address] Dr. Rima Charles Glucose [Mass/Vol] 111 mg/dL Normal [facility] Comment on above: Performed By: #### A 1C #### [facility] [address] [place] [address] Dr. Rima Charles HbA1c (Bld) [Mass fraction] 5.5 % Normal <=6.0 [facility] Comment on above: Performed By: #### A 1C #### [facility] [address] [place] [address] Dr. Rima Charles TAHIR BOX TEST PT SEND OUTo n 12-09-2020 SENT TO REF LAB 12/09/20 Normal [facility] Comment on above: Performed By: #### C BC #### [facility] [address] [place] [address] Dr. Rima Charles TSHon 12-09-2020 TSH 2.651 uIU/mL Normal 0.470-4.680 [facility] Comment on above: Performed By: #### C BC #### [facility] [address] [place] [address] Dr. Rima Charles TSH RANGE SEE BELOW Normal [facility] Comment on above: Result Comment: <0.3 4 UIU/ml HYPERTHYROID 0.34-5.60 UIU/ml EUTHYROID >5.60 UIU/ml HYPOTHYROID Performed By: #### C BC #### [facility] [address] [place] [address] Dr. Rima Charles TYPE AND SCREENon 12-09-2020 TYPE AND SCREEN Negative Normal [facility] Comment on above: Performed By: #### C BC #### [facility] [address] [place] [address] Dr. Rima Charles US PREG TVon 09-14-2021 US PREG TV EXAMINATION: US PREG TV [...] by: LILIANE POPE Date: 2020-12-02 09:34 Normal [facility] Vital Signs Date Time Vital Sign Value Performing Clinician Facility 10-15-2024 10:13-0400 Body mass index (BMI) [Ratio] 22.38 kg/m2 Erum HAYS Work Phone: [facility] 10-15-2024 10:13-0400 Body weight 61.01 kg Erum HAYS Work Phone: [facility] 10-15-2024 10:13-0400 Diastolic blood pressure 70 mm[Hg] Erum HAYS Work Phone: [facility] 10-15-2024 10:13-0400 Systolic blood pressure 118 mm[Hg] Erum HAYS Work Phone: [facility] 09-17-2024 11:10-0400 Body mass index (BMI) [Ratio] 22.1 kg/m2 Santosh Joanna DO Work Phone: [facility] 09-17-2024 11:10-0400 Body weight 60.24 kg Santosh Joanna DO Work Phone: [facility] 09-17-2024 11:10-0400 Diastolic blood pressure 70 mm[Hg] Santosh Joanna DO Work Phone: [facility] 09-17-2024 11:10-0400 Systolic blood pressure 112 mm[Hg] Santosh Joanna DO Work Phone: [facility] 08-17-2024 10:00-0400 Body mass index (BMI) [Ratio] 22.86 kg/m2 [facility] Nurse [facility] 08-17-2024 10:00-0400 Body weight 62.32 kg [facility] Nurse [facility] 08-17-2024 10:00-0400 Diastolic blood pressure 78 mm[Hg] [facility] Nurse [facility] 08-17-2024 10:00-0400 Systolic blood pressure 120 mm[Hg] [facility] [facility] 12-12-2023 14:19-0400 Body mass index (BMI) [Ratio] 21.15 kg/m2 Santosh Joanna DO Work Phone: [facility] 12-12-2023 14:19-0400 Body weight 57.66 kg Santosh Joanna DO Work Phone: [facility] 12-12-2023 14:19-0400 Diastolic blood pressure 62 mm[Hg] Santosh Joanna DO Work Phone: [facility] 12-12-2023 14:19-0400 Systolic blood pressure 104 mm[Hg] Santosh Joanna DO Work Phone: [facility] 08-08-2023 15:43-0400 Blood Pressure Location Ya Thornton [facility] 08-08-2023 15:43-0400 Diastolic blood pressure 60 mm[Hg] Ya Thornton [facility] 08-08-2023 15:43-0400 Heart rate 103 /min Ya Thornton [facility] 08-08-2023 15:43-0400 Respiratory rate 18 /min Ya Thornton [facility] 08-08-2023 15:43-0400 SaO2% (BldA) [Mass fraction] 100 % Ya Thornton [facility] 08-08-2023 15:43-0400 Systolic blood pressure 124 mm[Hg] Ya Thornton [facility] 03-09-2023 07:21-0500 Blood Pressure Location Ya Thornton [facility] 03-09-2023 07:21-0500 Body temperature 97.52 [degF] Ya Thornton [facility] 03-09-2023 07:21-0500 Diastolic blood pressure 60 mm[Hg] Ya Thornton [facility] 03-09-2023 07:21-0500 Heart rate 91 /min Ya Thornton [facility] 03-09-2023 07:21-0500 Respiratory rate 18 /min Ya Thornton [facility] 03-09-2023 07:21-0500 SaO2% (BldA) [Mass fraction] 100 % Ya Thornton [facility] 03-09-2023 07:21-0500 Systolic blood pressure 108 mm[Hg] Ya Thornton [facility] 02-21-2023 12:53-0500 Blood Pressure Location Ya Thornton [facility] 02-21-2023 12:53-0500 Diastolic blood pressure 72 mm[Hg] Ya Thornton [facility] 02-21-2023 12:53-0500 Heart rate 103 /min Ya Thornton [facility] 02-21-2023 12:53-0500 Respiratory rate 18 /min Ya Thornton [facility] 02-21-2023 12:53-0500 SaO2% (BldA) [Mass fraction] 99 % Ya Thornton [facility] 02-21-2023 12:53-0500 Systolic blood pressure 110 mm[Hg] Ya Thornton [facility] 11-30-2022 12:10-0400 Blood Pressure Location Agueda Gray [facility] 11-30-2022 12:10-0400 Body temperature 97.52 [degF] Agueda Galvezmetz [facility] 11-30-2022 12:10-0400 Diastolic blood pressure 70 mm[Hg] Agueda Galvezmetz [facility] 11-30-2022 12:10-0400 Heart rate 97 /min Agueda Galvezmetz [facility] 11-30-2022 12:10-0400 Systolic blood pressure 105 mm[Hg] Agueda Galvezmetz [facility] 11-11-2022 09:20-0400 Blood Pressure Location Ya Thornton [facility] 11-11-2022 09:20-0400 Body temperature 98.06 [degF] Ya Thornton [facility] 11-11-2022 09:20-0400 Diastolic blood pressure 62 mm[Hg] Ya Thornton [facility] 11-11-2022 09:20-0400 Heart rate 76 /min Ya Thornton [facility] 11-11-2022 09:20-0400 SaO2% (BldA) [Mass fraction] 98 % Ya Thornton [facility] 11-11-2022 09:20-0400 Systolic blood pressure 112 mm[Hg] Ya Thornton [facility] 05-03-2022 14:14-0500 Blood Pressure Location Ritu Desai [facility] 05-03-2022 14:14-0500 Body temperature 97.7 [degF] Ritu Desai [facility] 05-03-2022 14:14-0500 Diastolic blood pressure 62 mm[Hg] Ritu Desai [facility] 05-03-2022 14:14-0500 Heart rate 71 /min Ritu Moralesell [facility] 05-03-2022 14:14-0500 SaO2% (BldA) [Mass fraction] 98 % Ritu Desai [facility] 05-03-2022 14:14-0500 Systolic blood pressure 118 mm[Hg] Ritu Desai [facility] 2021 02:06-0400 Body weight 58.[address] SANTOSH MARSHALL [facility] Comment on above: Performed By: #### AFPMAT #### [facility] [address] [place] [address] Dr. Rima Charles Encounters Encounter Date Encounter Type Care Provider Facility Start: 01-07-2025 ambulatory Marta Lund lity:Katius[facility] FINNEGAN Start: 10-15-2024 End: 10-15-2024 Bamboo flowsheet Erum HAYS [facility] Phone[facility] Start: 10-15-2024 End: 10-15-2024 Bamboo flowsheet Erum HAYS Work Phone: [facility] Start: 10-15-2024 End: 10-15-2024 flow sheet Erum HAYS Work Phone: [facility] Comment on above: Second trimester pre gnancy ([facility]); 17 weeks gestation of ([facility]) Start: 10-02-2024 End: 10-02-2024 Clinisync Result Encounter Santosh Joanna DO Work Phone: [facility] Unsolicited Start: 10-02-2024 End: 10-02-2024 Clinisync Result Encounter Santosh Joanna DO Work Phone: [facility]solic[facility] Start: 09-24-2024 End: 09-24-2024 Chart abstracting Jacklyn Blakely MD Work Phone: [facility] Start: 09-24-2024 End: 09-26-2024 Clinisync Result Encounter Santosh Joanna DO Work Phone: [facility] Unsolicited Start: 09-24-2024 End: 09-26-2024 Clinisync Result Encounter Santosh Joanna DO Work Phone: [facility] Unsolicited Start: 09-20-2024 End: 09-20-2024 Orders Only Irene Gutierrez RN [facility] Comment on above: Thyroid disease affe cting (Primary Dx); History of prior with IUGR Start: 09-17-2024 End: 09-17-2024 Bamboo flowsheet Santosh Joanna DO Work Phone: [facility] Start: 09-17-2024 End: 09-17-2024 Bamboo flowsheet Santosh Joanna DO Work Phone: [facility] Start: 09-17-2024 End: 09-17-2024 ambulatory SANTOSH JOANNA Not Available Start: 09-17-2024 End: 09-17-2024 flow sheet Santosh Joanna DO Work Phone: [facility] Comment on above: 13 weeks gestation o f ([facility]); Second trimester ([facility]); Thyroid disease ; History of prior with [...] [id number] Start: 08-17-2024 End: 08-17-2024 ambulatory SANTOSH BHAKTAO Not Available Start: 07-09-2024 End: 07-09-2024 ambulatory Marta Almanzar Facility:[facility] Start: 07-05-2024 End: 07-05-2024 ambulatory Ham Robins Facility:[facility] Start: 07-04-2024 End: 07-04-2024 ambulatory Marta Almanzar Facility:[facility] Start: 07-04-2024 End: 07-04-2024 Patient encounter procedure Marta Almanzar [facility] Start: 05-14-2024 End: 05-14-2024 ambulatory CARMITA JURADO [facility] Start: 05-14-2024 End: 05-14-2024 Subsequent hospital visit [...] 09-07-2023 End: 09-07-2023 ambulatory Ya Thornton Facility:[facility] Start: 09-07-2023 End: 09-07-2023 Patient encounter procedure Ya Thornton [facility] Start: 08-08-2023 End: 08-08-2023 ambulatory Ya Thornton Facility:[facility] Start: 08-08-2023 End: 08-08-2023 Patient encounter procedure Ya Thornton [facility] Start: 07-12-2023 End: 07-12-2023 ambulatory OPAL LUZ Facility: [facility] Start: 07-12-2023 End: 07-12-2023 Patient encounter procedure OPAL LUZ [facility] Start: 05-16-2023 End: 05-16-2023 ambulatory Ya Thornton Facility:[facility] Start: 05-16-2023 End: 05-16-2023 ambulatory Ya Thornton Facility:[facility] Start: 04-01-2023 ambulatory Ya Thornton Facilit y:[facility] Start: 03-24-2023 End: 03-24-2023 ambulatory Ya Thornton Facility:[facility] Start: 03-24-2023 End: 03-24-2023 Patient encounter procedure Ya Thornton [facility] Start: 03-22-2023 End: 03-22-2023 ambulatory Ya Thornton Facility:[facility] Start: 03-22-2023 End: 03-22-2023 Patient encounter procedure Ya Thornton [facility] Start: 03-09-2023 End: 03-09-2023 Lab Drop off Ya Thornton [facility] Start: 03-09-2023 End: 03-09-2023 ambulatory Ya Thornton Facility:[facility] Start: 03-09-2023 End: 03-09-2023 Patient encounter procedure Ya Thornton [facility] Start: 02-21-2023 End: 02-21-2023 Lab Drop off Ya Thornton [facility] Start: 02-21-2023 End: 02-21-2023 ambulatory aY Thornton Facility:[facility] Start: 02-21-2023 End: 02-21-2023 Patient encounter procedure Ya Thornton [facility] Start: 11-30-2022 End: 11-30-2022 ambulatory Agueda Gray Facility:[facility] Start: 11-30-2022 End: 11-30-2022 Patient encounter procedure Agueda Gray [facility] Start: 11-11-2022 [facility]ulatory [facility] Start: 11-11-2022 End: 11-11-2022 ambulatory Ya Thornton Facility:[facility] Start: 11-11-2022 End: 11-11-2022 Patient encounter procedure Ya Thornton [facility] Start: 10-08-2022 End: 10-08-2022 ambulatory Ya Thornton Facility:[facility] Start: 10-08-2022 End: 10-08-2022 ambulatory Ya Thornton Facility:[facility] Start: 05-03-2022 End: 05-03-2022 Patient encounter procedure Ritu Desai [facility] Start: 10-19-2021 End: 10-19-2021 [...] Date Procedure Procedure Detail Performing Clinician Start: 10-15-2024 Urnls dip stick/tabl et rgnt non-auto w/o micrscp Santoshemigdio Bhaktao DO Work Phone: Start: 10-02-2024 GLUCOSE 1 HOUR Santosh hookso DO Work Phone: Start: 09-24-2024 ALL MISCELLANEOUS TEST Santosh Bhaktao DO Work Phone: Start: 09-12-2024 ALL MISCELLANEOUS TEST Santoshemigdio Bhaktao DO Work Phone: Start: 08-21-2024 Antibody screen [...] Start: 08-21-2024 ALL CBC WITH AUTO DIFF Santoshemigdio Bhaktao DO Work Phone: Start: 08-17-2024 End: 08-17-2024 Urnls dip stick/tablet rgnt non-auto w/o micrscp Santoshemigdio Bhaktao DO Work Phone: Start: 12-12-2023 IGP,APTIMA HPV,AGE GDLN Santosh Marshall DO Work Phone: Start: 06-04-2021 Adult depression scr eening assessment Jacklyn Blakely MD Work Phone: None (qualifier value) Lawson Desai Plan of Treatment Date Care Activity Detail Author Start: 05-27-2031 DTaP,Tdap and Td Vaccines (8 - Td or Tdap) DTaP,Tdap and Td Vaccines (8 - Td or Tdap) [facility] Start: 01-01-2025 End: 01-01-2025 Patient encounter procedure [facility] Start: 12-17-2024 End: 12-17-2024 Patient encounter procedure 12/17/2024 3:00 PM EDT Office Visit [facility] [address] [place] [id number] Santosh Marshall, DO [address] [place] [address] [facility] Start: 11-19-2024 Influenza vaccination Influenza Vacc ine [facility] Start: 11-12-2024 End: 11-12-2024 Patient encounter procedure 11/12/2024 11:10 AM EDT Routine [facility] [address] [place] [id number] Santosh Marshall DO [address] [place] [address] [facility] Start: 11-05-2024 End: 11-05-2024 Patient encounter procedure [facility] Start: 10-21-2024 End: 09-20-2025 US MFM with or without consult US MFM with or without consult Imaging Routine Thyroid disease affecting History of prior with IUGR Expected: 10/21/2024 (Approximate), Expires: 09/20/2025 [facility] Work Phone: Comment on above: Expected: 10/21/2024 (Approximate), Expires: 09/20/2025 Start: 10-15-2024 End: 12-16-2024 Alpha fetoprotein, maternal Alpha fetoprotein, maternal Lab Routine 17 weeks gestation of ([facility]) Expected: 10/15/2024 (Approximate), Expires: 12/16/2024 [facility] Work Phone: Comment on above: Expected: 10/15/2024 (Approximate), Expires: 12/16/2024 Start: 10-15-2024 End: 10-15-2024 Patient encounter procedure [facility] Comment on above: Arrived Start: 09-17-2024 End: 09-17-2025 Measurement of glucose 1 hour after glucose challenge for glucose tolerance test Glucose tolerance, 1 hour Lab Routine Diabetes mellitus screening Expected: 09/17/2024 (Approximate), Expires: 09/17/2025 [facility] Work Phone: Comment on above: Expected: 09/17/2024 (Approximate), Expires: 09/17/2025 Start: 09-17-2024 End: 09-17-2024 Patient encounter procedure 09/17/2024 10:50 AM EDT Routine [facility] [address] [place] [phone] Santosh Marshall, DO [address] [place] [address] [facility] Start: 08-17-2024 End: 08-17-2025 ABO/Rh ABO/Rh Lab Routine Missed menses , unspecified gestational age Expected: 08/17/2024 (Approximate), Expires: 08/17/2025 [facility] Comment on above: Expected: 08/17/2024 (Approximate), Expires: 08/17/2025 Start: 08-17-2024 End: 08-17-2025 Blood type and Indirect antibody screen panel - Blood Type and screen Lab Routine Missed menses , unspecified gestational age Expected: 08/17/2024 (Approximate), Expires: 08/17/2025 [facility] Comment on above: Expected: 08/17/2024 (Approximate), Expires: 08/17/2025 Start: 08-17-2024 End: 08-17-2025 Drugs of abuse panel - Urine by Screen method Rapid drug screen, urine Lab Routine , unspecified gestational age Encounter for supervision of normal first in first trimester Expected: 08/17/2024 (Approximate), Expires: 08/17/2025 [facility] Comment on above: Expected: 08/17/2024 (Approximate), Expires: 08/17/2025 Start: 08-09-2024 End: 11-09-2024 US Pelvis transvaginal US OB transvaginal Imaging Routine Missed menses Expected: 08/09/2024, Expires: 11/09/2024 [facility] Work Phone: Comment on above: Expected: 08/09/2024 , Expires: 11/09/2024 Start: 11-20-2023 COVID-19 (2023- 5 season) COVID-19 ( season) [facility] Start: 11-20-2023 FLU (#1) FLU (#1) [facility] Start: 06-04-2022 Depression Screening Depression [facility] Start: 01-19-2022 ambulatory Ambulatory Facility:H 1 Start: 2019 Microscopic observat ion [Identifier] in Cervix by Cyto stain Pap Smear [facility] Start: 2019 Screening for malign ant neoplasm of cervix Pap Smear [facility] Start: 2017 Hepatitis B (1 of 3 - 19+ 3-dose series) Hepatitis B (1 of 3 - 19+ 3-dose series) [facility] Start: 01-16-2016 Adult BMI Screening Adult BMI Screen ing [facility] Start: 2014 MenB (1 of 2 - MenB 2-Dose Series Bexsero) MenB (1 of 2 - MenB 2-Dose Series Bexsero) [facility] Start: 2013 HPV (1 - 3-dose series) HPV (1 - 3-d ose series) [facility] Start: 2011 Varicella (1 of 2 - 13+ 2-dose series) Varicella (1 of 2 - 13+ 2-dose series) [facility] Start: 2010 Tobacco Screening Tobacco Screening [facility] Start: 2005 Tetanus Diphtheria a nd Pertussis Vaccines (1 - Tdap) Tetanus Diphtheria and Pertussis Vaccines (1 - Tdap) [facility] Start: 1999 MMR (1 of 1 - Standa rd series) MMR (1 of 1 - Standard series) [facility] Bacteria identified in Urine by Culture Urine culture Microbiology Routine Missed menses Ordered: 08/17/2024 [facility] Comment on above: Ordered: 08/17/2024 CBC W Auto Different ial panel - Blood CBC and differential Lab Routine Missed menses , unspecified gestational age Ordered: 08/17/2024 [facility] Comment on above: Ordered: 08/17/2024 Cytology Cervical or vaginal smear or scraping study Pap Smear Pathology and Cytology Routine Well woman exam with routine gynecological exam Ordered: 12/12/2023 [facility] Work Phone: Comment on above: Ordered: 12/12/2023 End: 05-14-2024 DNA Extraction and hold [facility] Work Phone: Comment on above: 1 Occurrences starti ng 05/14/2024 until 05/14/2024, 1 completed Hemoglobin A1c/Hemoglobin.total in Blood Hemoglobin A1c Lab Routine Missed menses , unspecified gestational age Ordered: 08/17/2024 [facility] Comment on above: Ordered: 08/17/2024 Hepatitis B virus surface Ag [Presence] in Serum or Plasma by Immunoassay Hepatitis B surface antigen Lab Routine Missed menses , unspecified gestational age Ordered: 08/17/2024 [facility] Comment on above: Ordered: 08/17/2024 Hepatitis C virus Ab [Presence] in Serum or Plasma by Immunoassay Hepatitis C antibody Lab Routine Missed menses , unspecified gestational age Ordered: 08/17/2024 [facility] Comment on above: Ordered: 08/17/2024 HIV-1/HIV-2 antigen/antibody combination immunoassay HIV-1 and HIV-2 antibodies Lab Routine Missed menses , unspecified gestational age Ordered: 08/17/2024 [facility] Comment on above: Ordered: 08/17/2024 Reagin Ab [Presence] in Serum by RPR RPR Lab Routine Missed menses , unspecified gestational age Ordered: 08/17/2024 [facility] Comment on above: Ordered: 08/17/2024 Rubella antibody, IgG Rubella an tibody, IgG Lab Routine Missed menses , unspecified gestational age Ordered: 08/17/2024 [facility] Comment on above: Ordered: 08/17/2024 Thyrotropin [Units/volume] in Serum or Plasma TSH Lab Routine Missed menses , unspecified gestational age Encounter for supervision of normal first in first trimester Ordered: 08/17/2024 [facility] Comment on above: Ordered: 08/17/2024 US Pelvis transvaginal US OB tra nsvaginal Imaging Routine Missed menses 08/17/2024 9:27 AM EDT [facility] Immunizations Immunization Date Immunization Notes Care Provider Fa logan 05-26-2021 tetanus toxoid, reduced diphtheria toxoid, and acellular pertussis vaccine, adsorbed Ya Thornton [facility] 10-21-2015 meningococcal B vaccine, fully recombinant Ya Thornton [facility] 09-15-2015 meningococcal ACWY vaccine, unspecified formulation Ya Thorntno [facility] 09-15-2015 meningococcal B vaccine, fully recombinant Ya Thornton [facility] 06-22-2010 meningococcal ACWY vaccine, unspecified formulation Ya Thornton [facility] 06-22-2010 tetanus toxoid, reduced diphtheria toxoid, and acellular pertussis vaccine, adsorbed Ya Clark [facility] 01-30-2009 influenza virus vaccine, unspecified formulation Jacklyn Blakely MD Work Phone: [facility] 10-16-2003 DTaP, unspecified formulation Ya Thornton [facility] 10-16-2003 measles, mumps and rubella virus vaccine Ya Thornton [facility] 10-16-2003 poliovirus vaccine, unspecified formulation Ya Thornton [facility] 02-03-2000 DTaP, unspecified formulation Ya Thornton [facility] 01-26-1999 measles, mumps and rubella virus vaccine Ya Thornton [facility] 01-26-1999 varicella virus vaccine Ya Thornton [facility] 1998 DTaP, unspecified formulation Ya Thornton [facility] 1998 DTaP, unspecified formulation Ya Thornton [facility] 1998 DTaP, unspecified formulation Ya Thornton [facility] 1998 hepatitis B vaccine, pediatric or pediatric/adolescent dosage Ya Thornton [facility] NEGATED: Highlighted row has not occurred!11-29-2022 influenza virus vaccine, unspecified formulation Agueda Gray [facility] NEGATED: Highlighted row has not occurred!05-03-2022 influenza virus vaccine, unspecified formulation Ritu Desai [facility] Payers Date Payer Category Payer [facility] Blue Shield [facility] [id number] 2024 [employer] Managed Care - [place] [id number] 2023 Unknown [id number] 2023 Unknown [id number] 2023 Unknown 2023 Unknown [id number] 2022 Private Health Insurance [id number] 2022 Medicaid HMO [employer] [id number] 2019 Managed Care Other (unspecified) [employer] [id number] 1998 Unknown [id number] 2.16.840.1.908647.3.579.2. 593 1998 Unknown [id number] 2.16.840.1.200214.3.579.2. 593 1998 Unknown [id number] 2.16.840.1.897027.3.579.2. 593 1998 Unknown [id number] 2.16.840.1.225796.3.579.2. 593 1998 Unknown [id number] 2.16.840.1.047857.3.579.2. 593 1998 Unknown [id number] 2.16.840.1.924199.3.579.2. 593 1998 Unknown [id number] 2.16.840.1.710559.3.579.2. 593 1998 Unknown [id number] 2.16.840.1.099829.3.579.2. 593 1998 Unknown [id number] 2.16.840.1.129619.3.579.2. 593 1998 Unknown [id number] 2.16.840.1.164642.3.579.2. 593 1998 Unknown [id number] 2.16.840.1.561384.3.579.2. 727 1998 Unknown [id number] 2.16.840.1.094850.3.579.2. 727 1998 Unknown [id number] 2.16.840.1.909886.3.579.2. 727 1998 Unknown [id number] 2.16.840.1.842201.3.579.2. 727 1998 Unknown [id number] 2.16.840.1.648866.3.579.2. 727 1998 Unknown [id number] 2.16.840.1.059221.3.579.2. 727 1998 Unknown [id number] 2.16.840.1.908203.3.579.2. 727 1998 Unknown [id number] 2.16.840.1.175580.3.579.2. 727 1998 Unknown [id number] 2.16.840.1.417541.3.579.2. 727 1998 Unknown [id number] 2.16.840.1.940268.3.579.2. 727 1998 Unknown [id number] 2.16.840.1.848075.3.579.2. 727 1998 Unknown [id number] 2.16.840.1.259071.3.579.2. 727 1998 Unknown [id number] 2.16.840.1.142249.3.579.2. 727 1998 Unknown [id number] 2.16.840.1.909952.3.579.2. 727 1998 Unknown [id number] 2.16.840.1.507389.3.579.2. 727 1998 Unknown [id number] 2.16.840.1.539347.3.579.2. 727 1998 Unknown [id number] 2.16.840.1.441210.3.579.2. 479 1998 Unknown [id number] 2.16.840.1.215254.3.579.2. 727 1998 Unknown [id number] 2.16.840.1.336480.3.579.2. 727 1998 Unknown [id number] 2.16.840.1.715214.3.579.2. 727 1998 Unknown [id number] 2.16.840.1.515436.3.579.2. 727 1998 Unknown [id number] 2.16.840.1.195266.3.579.2. 727 1998 Unknown [id number] 2.16.840.1.001695.3.579.2. 727 1998 Unknown [id number] 2.16.840.1.535121.3.579.2. 727 1998 Unknown [id number] 2.16.840.1.603303.3.579.2. 1259 1998 Unknown [id number] 2.16.840.1.107118.3.579.2. 1259 1998 Unknown [id number] 2.16.840.1.322145.3.579.2. 1259 1998 Unknown [id number] 2.16.840.1.321852.3.579.2. 1259 1959 Self-pay 1959 Unknown [id number] 1959 Unknown [id number] 1959 Unknown [id number] Unknown [id number] 2.16.840.1.125482.3.579.2. 593 Social History Date Type Detail Facility Start: 05-03-2022 End: 11-17-2022 Tobacco smoking status Never smoked tobacco (finding) [facility] Tobacco smoking status Never [facility] Start: 07-12-2023 End: 12-12-2023 Sex Assigned At Female [facility] Start: 12-12-2023 End: 09-17-2024 Alcoholic beverage intake Current drinker of alcohol (finding) [facility] Start: 07-12-2023 End: 12-12-2023 History of Social function [facility] Start: 11-17-2022 Alcohol Comment occasional alcohol u se [facility] Start: 1998 Sex assigned at Not on file N [facility] Tobacco smoking stat us CAIS Tobacco smoking consumption unknown [facility] Sexual Orientation [facility] Start: 07-02-2009 End: 12-03-2020 Sex Female (finding) [facility] Start: 06-30-2024 [facility] Start: 12-23-2020 Tobacco use and exposure Smokeless tobacco non-user [facility] Start: 09-24-2024 Alcoholic beverage intake Ex-drinker (finding) [facility] The thought of richard ponce myself has occurred to me Never [facility] Medical Equipment Procedure Code Equipment Code Equipment Origin al Text Equipment Identifier Dates Glucose Test Str ips, See Instructions, 1 EA, 3, Glucose Test Strips, [facility], Supply, 166, cm, 10/08/22 15:10:00 EDT, Height/Length Dosing, 57.8, kg, 10/08/22 15:10:00 EDT, Weight Dosing Start: 10-08-2022 Lancets, See Instructions, 100 lancet(s), 3, Lancets, [facility], Supply, 166, cm, 10/08/22 15:10:00 EDT, Height/Length Dosing, 57.8, kg, 10/08/22 15:10:00 EDT, Weight Dosing Start: 10-08-2022 Glucose Test Str ips, See Instructions, 1 EA, 3, Glucose Test Strips, [facility], Supply, 166, cm, 10/08/22 15:10:00 EDT, Height/Length Dosing, 57.8, kg, 10/08/22 15:10:00 EDT, Weight Dosing Start: 10-08-2022 Lancets, See Instructions, 100 lancet(s), 3, Lancets, [facility], Supply, 166, cm, 10/08/22 15:10:00 EDT, Height/Length Dosing, 57.8, kg, 10/08/22 15:10:00 EDT, Weight Dosing Start: 10-08-2022 Glucose Test Str ips, See Instructions, 1 EA, 3, Glucose Test Strips, [facility], Supply, 166, cm, 10/08/22 15:10:00 EDT, Height/Length Dosing, 57.8, kg, 10/08/22 15:10:00 EDT, Weight Dosing Start: 10-08-2022 Lancets, See Instructions, 100 lancet(s), 3, Lancets, [facility], Supply, 166, cm, 10/08/22 15:10:00 EDT, Height/Length Dosing, 57.8, kg, 10/08/22 15:10:00 EDT, Weight Dosing Start: 10-08-2022 Glucose Test Str ips, See Instructions, 1 EA, 3, Glucose Test Strips, [facility], Supply, 166, cm, 10/08/22 15:10:00 EDT, Height/Length Dosing, 57.8, kg, 10/08/22 15:10:00 EDT, Weight Dosing Start: 10-08-2022 Lancets, See Instructions, 100 lancet(s), 3, Lancets, [facility], Supply, 166, cm, 10/08/22 15:10:00 EDT, Height/Length Dosing, 57.8, kg, 10/08/22 15:10:00 EDT, Weight Dosing Start: 10-08-2022 Glucose Test Str ips, See Instructions, 1 EA, 3, Glucose Test Strips, [facility], Supply, 166, cm, 10/08/22 15:10:00 EDT, Height/Length Dosing, 57.8, kg, 10/08/22 15:10:00 EDT, Weight Dosing Start: 10-08-2022 Lancets, See Instructions, 100 lancet(s), 3, Lancets, [facility], Supply, 166, cm, 10/08/22 15:10:00 EDT, Height/Length Dosing, 57.8, kg, 10/08/22 15:10:00 EDT, Weight Dosing Start: 10-08-2022 Glucose Test Str ips, See Instructions, 1 EA, 3, Glucose Test Strips, [facility], Supply, 166, cm, 10/08/22 15:10:00 EDT, Height/Length Dosing, 57.8, kg, 10/08/22 15:10:00 EDT, Weight Dosing Start: 10-08-2022 Lancets, See Instructions, 100 lancet(s), 3, Lancets, [facility], Supply, 166, cm, 10/08/22 15:10:00 EDT, Height/Length Dosing, 57.8, kg, 10/08/22 15:10:00 EDT, Weight Dosing Start: 10-08-2022 Glucose Test Str ips, See Instructions, 1 EA, 3, Glucose Test Strips, [facility], Supply, 166, cm, 10/08/22 15:10:00 EDT, Height/Length Dosing, 57.8, kg, 10/08/22 15:10:00 EDT, Weight Dosing Start: 10-08-2022 Lancets, See Instructions, 100 lancet(s), 3, Lancets, [facility], Supply, 166, cm, 10/08/22 15:10:00 EDT, Height/Length Dosing, 57.8, kg, 10/08/22 15:10:00 EDT, Weight Dosing Start: 10-08-2022 Glucose Test Str ips, See Instructions, 1 EA, 3, Glucose Test Strips, [facility], Supply, 166, cm, 10/08/22 15:10:00 EDT, Height/Length Dosing, 57.8, kg, 10/08/22 15:10:00 EDT, Weight Dosing Start: 10-08-2022 Lancets, See Instructions, 100 lancet(s), 3, Lancets, [facility], Supply, 166, cm, 10/08/22 15:10:00 EDT, Height/Length Dosing, 57.8, kg, 10/08/22 15:10:00 EDT, Weight Dosing Start: 10-08-2022 Glucose Test Str ips, See Instructions, 1 EA, 3, Glucose Test Strips, [facility], Supply, 166, cm, 10/08/22 15:10:00 EDT, Height/Length Dosing, 57.8, kg, 10/08/22 15:10:00 EDT, Weight Dosing Start: 10-08-2022 Lancets, See Instructions, 100 lancet(s), 3, Lancets, [facility], Supply, 166, cm, 10/08/22 15:10:00 EDT, Height/Length Dosing, 57.8, kg, 10/08/22 15:10:00 EDT, Weight Dosing Start: 10-08-2022 Glucose Test Str ips, See Instructions, 1 EA, 3, Glucose Test Strips, [facility], Supply, 166, cm, 10/08/22 15:10:00 EDT, Height/Length Dosing, 57.8, kg, 10/08/22 15:10:00 EDT, Weight Dosing Start: 10-08-2022 Lancets, See Instructions, 100 lancet(s), 3, Lancets, [facility], Supply, 166, cm, 10/08/22 15:10:00 EDT, Height/Length Dosing, 57.8, kg, 10/08/22 15:10:00 EDT, Weight Dosing Start: 10-08-2022 Glucose Test Str ips, See Instructions, 1 EA, 3, Glucose Test Strips, [facility], Supply, 166, cm, 10/08/22 15:10:00 EDT, Height/Length Dosing, 57.8, kg, 10/08/22 15:10:00 EDT, Weight Dosing Start: 10-08-2022 Lancets, See Instructions, 100 lancet(s), 3, Lancets, [facility], Supply, 166, cm, 10/08/22 15:10:00 EDT, Height/Length Dosing, 57.8, kg, 10/08/22 15:10:00 EDT, Weight Dosing Start: 10-08-2022 Glucose Test Str ips, See Instructions, 1 EA, 3, Glucose Test Strips, [facility], Supply, 166, cm, 10/08/22 15:10:00 EDT, Height/Length Dosing, 57.8, kg, 10/08/22 15:10:00 EDT, Weight Dosing Start: 10-08-2022 Lancets, See Instructions, 100 lancet(s), 3, Lancets, [facility], Supply, 166, cm, 10/08/22 15:10:00 EDT, Height/Length Dosing, 57.8, kg, 10/08/22 15:10:00 EDT, Weight Dosing Start: 10-08-2022 Use daily as directed & as needed Start: 03-26-2021 Functional Status Date Assessment Result Facility 08-08-2023 Functional Status N/A [facility] 03-09-2023 Functional Status N/A [facility] 02-21-2023 Functional Status N/A [facility] 11-30-2022 Functional Status N/A [facility] 11-11-2022 Functional Status N/A [facility] 05-03-2022 Functional Status N/A [facility] Clinical Notes 05-03-2022 to 10-15-2024 LIS Man - 10/15/2024 9:50 AM Caitlin Jeronimo ALUMNAE SECRETARY - 09/17/2024 10:50 AM Jeremias Tapia ALUMNAE SECRETARY - 08/17/2024 9:30 AM Denisse Villarreal ALUMNAE SECRETARY - 12/12/2023 2:00 PM EDTLaboratoryLaboratoryLaboratory Note Date & Type Note Facility 10-15-2024 History of Present illness Narrative Reason for Appointment: Patient ID: Yana Church is a 24 y.o. female who presents for Routine Visit Patient presents today for Return OB appointment. MEDICATIONS Current Outpatient Medications Medication Instructions levothyroxine (SYNTHROID) 125 mcg, Oral, Daily before breakfast MV-Min-Fe Fum-FA-DHA ( 1 PO) Take by mouth ALLERGIES No Known Allergies PROBLEMS Active Ambulatory [...] Exam Constitutional: Appearance: Normal appearance. She is normal weight. HENT: Head: Normocephalic. Cardiovascular: Rate and Rhythm: Normal rate. Pulses: Normal pulses. Pulmonary: Effort: Pulmonary effort is normal. Breath sounds: Normal breath sounds. Abdominal: Palpations: Abdomen is soft. Musculoskeletal: General: Normal range of motion. Neurological: General: No focal deficit present. Mental Status: She is alert and oriented to person, place, and time. Psychiatric: Mood and Affect: Mood normal. Behavior: Behavior normal. Thought Content: Thought content normal. Judgment: Judgment normal. Vitals and nursing note reviewed. Vitals: Estimated body mass index is 22.38 kg/m as calculated from the following: Height as of 11/29/22: 5' 5 . Weight as of this encounter: 134 lb 8 oz. BP: 118/70 Patient's last menstrual period was 06/16/2024. ASSESSMENT & PLAN ICD-10-CM 1. Second trimester ([facility]) Z34.92 2. 17 weeks gestation of ([facility]) Z3A.17 POCT urinalysis dipstick manually resulted Alpha fetoprotein, maternal Alpha fetoprotein, maternal Return OB: Patient presents today for a routine obstetrics appointment. Patient is currently 17w2d . Patient states she is doing well but has complaints of being tired due to current . Patient has verbalizes frequent movement. Orders Placed This Encounter Procedures Alpha fetoprotein, maternal POCT urinalysis dipstick manually resulted Follow Up: Patient is to return to office in 4 week for routine OB appointment. Documented by LIS Man on behalf of: LIS Man documented in this encounter [facility] 09-17-2024 History of Present illness Narrative Reason [...] nursing note reviewed. Exam conducted with a hydramatic specialist present. Vitals: Estimated body mass index is 22.1 kg/m as calculated from the following: Height as of 11/29/22: 5' 5 . Weight as of this encounter: 132 lb 12.8 oz. BP: 112/70 Patient's last menstrual period was 06/16/2024. ASSESSMENT & PLAN ICD-10-CM 1. 13 weeks gestation of ([facility]) Z3A.13 2. Second trimester ([facility]) Z34.92 3. Thyroid disease E07.9 levothyroxine (Synthroid) [...] or undercooked meat, and [facility]. Patient has been consulted regarding any further do's and don'ts of . Patient voiced understanding and all questions and concerns were answered. Pt has h/o IUGR, thyroid disease, pt being referred to [facility] for level II ultrasound. Pt should be taking 125mcg of levothyroxine. Pt voiced understanding. Pt to start baby aspirin. Orders Placed This Encounter Procedures Glucose tolerance, 1 hour Follow Up: Patient is to return in 4 weeks for routine OB appointment. Documented by Aliya Jeronimo LPN on behalf of: Santosh Marshall DO documented in this encounter [facility] 08-17-2024 History of Present illness Narrative Reason [...] or undercooked meat, and [facility] Patient has also been advised to not change litter boxes and eat 6 small meals a day. Patient has been consulted regarding the do's and don'ts of . Patient was given labs and all questions and concerns were answered. Patient was sent in Magnesium for headaches. Patient given Ralph labs to do with initial labs along [...] Carmita Tapia LPN documented in this encounter [facility] 07-09-2024 Note Patient Education Endocrinology Hypothyroidism Hypothyroidism [...] Follow these instructions at home: ??? Take vfru-fdj-pozrlfp and prescription medicines only as told by [...] provider. Document Revised: 03/09/2022 Document Reviewed: 03/09/2022 [employer] Patient Education ? 2023 [employer] Obstetrics and Gynecology Health Maintenance, Female Adopting a healthy lifestyle and getting preventive care are important in promoting health and wellness. Ask your health care provider about: ??? The right schedule for you to have regular tests and exams. ??? Things (more content not included)... [facility] 07-05-2024 Note Patient Education ENT How to [...] cannot use soap and water, use hand bundle tier. 2. Wash your device using the directions [...] provider. Document Revised: 08/24/2021 Document Reviewed: 08/24/2021 [employer] Patient Education ? 2023 [employer]. Infectious Disease Sinus Infection, Adult A sinus [...] diagnosed? Your s (more content not included)... [facility] 12-12-2023 History of Present illness Narrative Reason [...] Diagnosis Date BMI 23.0-23.9, adult Thyroid disease ([facility]) Well woman exam HISTORY PAST MEDICAL HISTORY SOCIAL HISTORY Past Medical History: Diagnosis Date BMI 23.0-23.9, adult Thyroid disease ([facility]) Well woman exam Social History Tobacco [...] nursing note reviewed. Exam conducted with a hydramatic specialist present. Vitals: Estimated body mass index is 21.15 kg/m as calculated from the following: Height as of 23: 5' 5 . Weight as of this [...] Santosh Marshall DO documented in this encounter [facility] 08-08-2023 Hospital Discharge instructions Patient Education 08/08/2023 [...] to help relieve pain. General instructions Take jowa-uqr-qqtzyba and prescription medicines only as told by [...] provider. Document Revised: 10/22/2020 Document Reviewed: 10/22/2020 [employer] Patient Education 2022 [employer]. 08/08/2023 16:25:44 Hemorrhoids Hemorrhoids Hemorrhoids are swollen [...] 3 times a day. General instructions Take cofu-ckp-vpbpcko and prescription medicines only as told by [...] provider. Document Revised: 09/16/2021 Document Reviewed: 09/16/2021 [employer] Patient Education 2022 [employer] 08/08/2023 16:25:43 Urinary Tract Infection, Adult Urinary [...] Treatment for this condition includes: Antibiotic medicine. Sjhv-ujf-rtqyspa medicines to treat discomfort. Drinking enough water [...] Follow these instructions at home: Medicines Take xhoe-yps-femqxjv and prescription medicines only as told by [...] provider. Document Revised: 10/17/2020 Document Reviewed: 10/17/2020 [employer] Patient Education 2022 [employer]. 08/08/2023 16:25:41 Hypothyroidism Hypothyroidism Hypothyroidism is when [...] away. Follow these instructions at home: Take cdzw-ejg-skssncu and prescription medicines only as told by [...] provider. Document Revised: 03/09/2022 Document Reviewed: 03/09/2022 [employer] Patient Education 2022 [employer] [facility] 08-08-2023 Evaluation + Plan note Future Scheduled TestsUA with Cult Rflx 08/08/23CBC w/ Auto Diff 02/08/24Comprehensive Metabolic Panel 02/08/24Thyroid Stimulating Hormone 02/08/24Thyroid Stimulating Hormone 05/16/23Free T4 02/08/24Free T4 05/16/23 [facility] 03-09-2023 Hospital Discharge instructions [...] including vitamins, herbs, eye drops, creams, and yahx-cww-yztqqie medicines. ?Whether you are or may be [...] provider. Document Revised: 11/18/2021 Document Reviewed: 10/10/2020 [employer] Patient Education 2022 [employer]. 03/09/2023 08:08:48 Urinary Tract Infection, Adult Urinary [...] Treatment for this condition includes: Antibiotic medicine. Xbnw-uwt-ghgnfif medicines to treat discomfort. Drinking enough water [...] Follow these instructions at home: Medicines Take dxwl-lsn-yeqmckn and prescription medicines only as told by [...] provider. Document Revised: 10/17/2020 Document Reviewed: 10/17/2020 [employer] Patient Education 2022 [employer]. 03/09/2023 08:08:46 Hypothyroidism Hypothyroidism Hypothyroidism is when [...] away. Follow these instructions at home: Take teti-all-zgieuie and prescription medicines only as told by [...] provider. Document Revised: 03/09/2022 Document Reviewed: 03/09/2022 [employer] Patient Education 2022 [employer] Follow Up Care 03/07/2023 12:06:45 With:Norberto BARTLETT, CINDY Liang, [facility] Address: [address] [place] [address] [phone]- Business (1) When:05/25/2023 Comments:for f/u [facility] 02-21-2023 Hospital Discharge instructions [...] Follow these instructions at home: Medicines Take kcup-jrq-amufori and prescription medicines only as told by [...] provider. Document Revised: 10/17/2020 Document Reviewed: 10/17/2020 [employer] Patient Education 2022 [employer] Follow Up Care 02/21/2023 08:19:47 With:Ya Wang FAM, [facility] Address: [facility] [place] [phone] Business (1) When:05/25/2023 Comments:for f/u [facility] 11-30-2022 Hospital Discharge instructions [...] Bulgur wheat. Millet. Quinoa. Bran muffins. Popcorn. [place] wafer crackers. Meats and other proteins [place] beans, kidney beans, and díaz beans. Soybeans. [...] Cream cheese. Sour cream. Fats and oils [place]. Beverages Soft drinks. Other foods Cakes and [...] provider. Document Revised: 07/10/2020 Document Reviewed: 07/10/2020 [employer] Patient Education 2022 [employer] Follow Up Care 11/11/2022 12:10:41 With:Agueda Gray CNP Address: When:2 weeks Comments:Following EGD/Colonoscopy. [facility] 11-11-2022 Hospital Discharge instructions [...] per serving. Talk with a diet and talent sourcing specialist (dietitian) if you have questions about [...] Bulgur wheat. Millet. Quinoa. Bran muffins. Popcorn. [place] wafer crackers. Meats and other proteins [place], kidney, and díaz beans. Soybeans. Split peas. [...] Cream cheese. Sour cream. Fats and oils [place]. Beverages Soft drinks. Other foods Cakes and [...] 03/07/2006 Document Revised: 01/09/2018 Document Reviewed: 01/09/2018 [employer] Patient Education 2020 [employer]. 11/11/2022 01:00:54 Hemorrhoids Hemorrhoids Hemorrhoids are swollen [...] 3 times a day. General instructions Take hztm-bpx-jfvgqvm and prescription medicines only as told by [...] provider. Document Revised: 09/16/2021 Document Reviewed: 09/16/2021 [employer] Patient Education 2022 [employer] Follow Up Care 11/08/2022 14:59:04 With:Ya Wang FAM, [facility] Address: [address] [place] [address], [facility] [address] [place] [phone] Business (1) When:Within 3 Month(s) Comments:3 mo f/u [facility] 05-03-2022 Hospital Discharge instructions [...] away. Follow these instructions at home: Take pkbr-bqi-hfidazk and prescription medicines only as told by [...] 03/07/2006 Document Revised: 02/17/2018 Document Reviewed: 02/15/2018 [employer] Patient Education 2020 [employer]. Follow Up Care 04/05/2022 12:35:49 With:Ritu Desai CNP Address: [address] [place] [phone] When:1 year Comments:or sooner if needed. [facility] Evaluation + Plan note No data available for this section [facility] Evaluation + Plan note Future Appointments Appointment Date:11/30/2022 12:00:00 PM Scheduled Provider:Agueda Gray CNP Location:[facility] Appointment Type:[facility] New Patient Appointment Date:04/04/2023 01:00:00 PM Scheduled Provider:Ya Wang Location:[facility] Appointment Type:FM Open Future Scheduled TestsTSH With T4fr Reflex 10/08/22 [facility] Evaluation + Plan note Future Appointments Appointment Date:04/04/2023 01:00:00 PM Scheduled Provider:Ya Wang Location:[facility] Appointment Type:FM Open Future Scheduled TestsTSH With T4fr Reflex 10/08/22 [facility] Evaluation + Plan note Future Appointments Appointment Date:07/25/2023 10:00:00 AM Scheduled Provider:Ya Wang Location:[facility] Appointment Type:FM Open Future Scheduled TestsT3 Free 02/21/23Thyroid Stimulating Hormone 02/21/23Free T4 02/21/23 [facility] Evaluation + Plan note Future Appointments Appointment Date:07/25/2023 10:00:00 AM Scheduled Provider:Ya Wang Location:[facility] Appointment Type:FM Open Diagnostic Tests PendingUrine Culture 02/21/23 Future Scheduled TestsT3 Free 02/21/23Thyroid Stimulating Hormone 02/21/23Free T4 02/21/23 [facility] Evaluation + Plan note Future Appointments Appointment Date:07/25/2023 10:00:00 AM Scheduled Provider:Ya Wang Location:[facility] Appointment Type:FM Open Future Scheduled TestsT3 Free 02/21/23Thyroid Stimulating Hormone 02/21/23Free T4 02/21/23US Retroperitoneal Complete 03/09/23 [facility] Evaluation + Plan note Future Appointments Appointment Date:07/25/2023 10:00:00 AM Scheduled Provider:Ya Wang Location:[facility] Appointment Type:FM Open Diagnostic Tests PendingUrine Culture 03/09/23 Future Scheduled TestsT3 Free 02/21/23Thyroid Stimulating Hormone 02/21/23Free T4 02/21/23US Retroperitoneal Complete 03/09/23 [facility] Evaluation + Plan note Future Appointments Appointment Date:07/12/2023 09:30:00 AM Scheduled Provider:OPAL LUZ PA-C Location:[facility] ROOPA Jackman Appointment Type:URO New Patient Appointment Date:07/25/2023 10:00:00 AM Scheduled Provider:Ya Wang Location:[facility] Appointment Type:FM Open Diagnostic Tests PendingT3 Free 03/22/23 [facility] Evaluation + Plan note Future Appointments Appointment Date:07/12/2023 09:30:00 AM Scheduled Provider:OPAL LUZ PA-C Location:[facility] Appointment Type:URO New Patient Appointment Date:07/25/2023 10:00:00 AM Scheduled Provider:Ya Wang Location:[facility] Appointment Type:FM Open [facility] Evaluation + Plan note Future Appointments Appointment Date:07/25/2023 10:00:00 AM Scheduled Provider:Ya Wang Location:[facility] Appointment Type:FM Open Future Scheduled TestsThyroid Stimulating Hormone 05/16/23Free T4 05/16/23 [facility] Evaluation + Plan note Future Scheduled TestsCBC w/ Auto Diff 02/08/24Comprehensive Metabolic Panel 02/08/24Thyroid Stimulating Hormone 02/08/24Free T4 02/08/24 [facility] Evaluation + Plan note Future Appointments Appointment Date:07/09/2024 08:00:00 AM Scheduled Provider:Marta Rivas Location:[facility] Appointment Type:FM New Patient - Adult Future Scheduled TestsCBC w/ Auto Diff 02/08/24Comprehensive Metabolic Panel 02/08/24Thyroid Stimulating Hormone 02/08/24Free T4 02/08/24 [facility] Evaluation note Diagnosis Well woman exam with routine gynecological exam Routine gynecological examination [facility] Diagnosis Family history of autism Family history of psychiatric condition [facility]* Diagnosis Missed menses , unspecified gestational age Encounter for supervision of normal first in first trimester Nonintractable headache, unspecified chronicity pattern, unspecified headache type documented [facility]* Diagnosis 13 weeks gestation of ([facility]) Second trimester ([facility]) state, incidental Thyroid disease Unspecified disorder of thyroid History of prior with IUGR Diabetes mellitus screening Screening for diabetes mellitus documented [facility]* Diagnosis Thyroid disease affecting - Primary History of prior with IUGR documented [facility] encounter [facility]* Diagnosis Second trimester ([facility]) state, incidental 17 weeks gestation of ([facility]) [facility] No data available for this section [facility]ructionsNot on filedocumented in this encounter [facility] filedocumented in this encounter [facility] No data available for this section [facility] Summary Purpose Family History [...] content) DATE CREATED AUTHOR 11/15/2021 [facility] DATE CREATED AUTHOR AUTHOR'S ORGANIZ ATION 09/09/2023 [facility] DATE CREATED AUTHOR AUTHOR'S ORGANIZ ATION 05/21/2024 [facility] DATE CREATED AUTHOR AUTHOR'S ORGANIZ ATION 07/06/2024 [facility] DATE CREATED AUTHOR AUTHOR'S ORGANIZ ATION 07/10/2024 [facility] DATE CREATED AUTHOR AUTHOR'S ORGANIZ ATION 07/13/2024 [facility] DATE CREATED AUTHOR AUTHOR'S ORGANIZ ATION 09/18/2024 [facility] EPIC Patient Care team informatio n (unrecognized section and content) Roll Tender Relationship Specialty Start Date End Date Carrillo White MD [address] [place] [address] PCP - General Internal Medicine 11/29/22 Roll Tender Relationship Specialty Start Date End Date Carrillo White MD [address] [place] [address] PCP - General Internal Medicine 11/29/22 Roll Tender Relationship Specialty Start Date End Date Carrillo White MD [address] [place] [address] PCP - General Internal Medicine 11/29/22 Roll Tender Relationship Specialty Start Date [place] [address] Attending Provider Medical Clinical Genetics 05/14/24 Roll Tender Relationship Specialty Start Date End Date Carrillo White MD [address] [place] [address] PCP - General Internal Medicine 11/29/22 Roll Tender Relationship Specialty Start Date End Date Carrillo White MD [address] [place] [address] PCP - General Internal Medicine 11/29/22 Roll Tender Relationship Specialty Start Date End Date Carrillo White MD [address] [place] [address] PCP - General Internal Medicine 11/29/22 Roll Tender Relationship Specialty Start Date End Date Carrillo White MD [address] [place] [address] PCP - General Internal Medicine 11/29/22 Roll Tender Relationship Specialty Start Date End Date Carrillo White MD PCP - General Internal Medicine 04/07/21 Roll Tender Relationship Specialty Start Date End Date Carrillo White MD [address] [place], [place] [address] [place] [address] PCP - General Internal Medicine 11/29/22 Reason [...] BE BASED ON THE PRIMARY CLINICAL RECORDS. [facility] [employer] provides no warranty or guarantee of the accuracy or completeness of information in this document.
== END 2024-10-15 10:45 | disposition home or self-care (01) ==
PROVIDERS: Visit Provider Physician Assistant
DX: Z34.92 Encounter for supervision of normal pregnancy, unspecified, second trimester (principal); Z3A.17 17 weeks gestation of pregnancy
CPT/HCPCS: 36415; 82105

== ENCOUNTER 2024-11-07 12:51 | Outpatient (OUT) | payer BC, SELFPAY ==
--- OUTSIDE RECORDS SUMMARY | 2024-11-05 11:30 | XMS_ITS | Encounter Summary ---
Author Organization [employer] tem Address [id number] [address] [place] [address] Care Team Providers Care A&P Mechanic Name Role Phone Carrillo White MD Primary Care Provider [phone] Reason for Referral * Diagnostic Imaging (Routine) - Pending Review Specialty Diagnoses / Procedures Referred By [facility] lin Referred To Contact Maternal and Medicine Diagnoses Thyroid disease affecting History of prior with IUGR Procedures US MFM with or without consult hSauna Marshall DO [address] [place] [address] Phone: tel: fax: Maternal- Medicine at [facility] [address] [place] [address] Phone: tel: fax: Referral ID Status Reason Start Date Expiration Date V isits Requested Visits Authorized [id number] Pending Review 09/20/2024 09/20/2025 1 1 Reason for Visit * Diagnostic Imaging (Routine) - Pending Review Specialty Diagnoses / Procedures Referred By [facility]ford lin Referred To Contact Maternal and Medicine Diagnoses Thyroid disease affecting History of prior with IUGR Procedures US MFM with or without consult Shauna Marshall DO [address] [place] [address] Phone: tel: fax: Maternal- Medicine at [facility] [address] [place] [address] Phone: tel: fax: Referral ID Status Reason Start Date Expiration Date V isits Requested Visits Authorized [id number] Pending Review 09/20/2024 09/20/2025 1 1 Encounter Details Date Type Department Care Team (Latest Contact Info) Description 11/05/2024 11:30 AM EDT - 11/05/2024 11:59 PM EDT Hospital Encounter [facility] - [facility] US Imaging [address] [place] [address] Thyroid disease affecting ; History of prior with IUGR Discharge Disposition: Home Social History Tobacco Use Types Packs/Day Years Used Date Smoking Tobacco: Never Smokeless Tobacco: Never Alcohol Use Standard Drinks/Week Comments Not Currently 0 (1 standard drink = 0.6 oz pur e alcohol) [place] Depression Scale Answer Date Recorded [place] Depression Scale Total 6 06/04/2021 The thought of harming myself has occurred to me . Never 06/04/2021 Hunger Screening Answer Date Recorded Within the past 12 months we worried whether our food would run out before we got money to buy more. Never True 11/05/2024 Within the past 12 months th e food we bought just didn't last and we didn't have money to get more. Never True 11/05/2024 Estimated Date of Delivery Comme nts Yes 03/23/2025 Based on last me nstrual period of 06/16/2024 Sex and Gender Information Value Date Recorded Sex Assigned at Not on file Legal Sex Female 10:50 AM EDT Gender Identity Not on file Sexual Orientation Not on file documented as of this encounter Medications at Time of Discharge acetaminophen (TYLENOL EXTRA STRENGTH) 500 mg tablet Take 2 tablets (1,000 mg total) by mouth every 8 (eight) hours as needed for pain. 30 tablet 06/01/2021 aspirin 81 mg Take 1 tablet (81 mg total) by mouth in the morning. freestyle 28 gauge lancets Use daily as directed & as needed 03/26/2021 FREESTYLE LITE METER kit See Admin Instructions. 03/26/2021 levothyroxine (SYNTHROID, LEVOTHROID) 100 MCG tablet Take 125 mcg by mouth in the morning. magnesium oxide (MAGOX) 400 mg tablet Take 1 tablet (400 mg total) by mouth in the morning. PNV no.95/ferrous fum/folic ac ( ORAL) Take by mouth in the morning. documented as of this encounter Plan of Treatment Upcoming Encounters Date Type Department Care Team (Late st Contact Info) Description 11/20/2024 3:45 PM EDT Appointment [facility] US Imaging [address] [place] [address] 11/27/2024 3:15 PM EDT Appointment [facility] - Ultrasound [address] [place] [address] 12/11/2024 2:15 PM EDT Appointment [facility] - Ultrasound [address] [place] [address] documented as of this encounter Procedures Procedure Name Priority Date/Time Associated Diagnosis Comments US [facility] COMPREHENSIVE ANATOMIC SURVEY Routine 11/05/2024 1:27 PM EDT Thyroid disease affecting History of prior with IUGR documented in this encounter Results * US [facility] COMPREHENSIVE ANATOMIC SURVEY (11/05/2024 1:27 PM EDT) Anatomical Region Laterality Modality OB-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 OUT 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 FIRE 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 Ultrasound 11/05/2024 12:0 1 PM EDT Narrative 11/05/2024 5:31 PM EDT NAME: KERRY MILLAN : 2000 SEX: F Accession Number: [id number] ORDERING PHYSICIAN: SHAUNA MARSHALL REFERRING PHYSICIAN: SHAUNA MARSHALL Coding ----- --------- Procedures 42396: Ultrasound, uterus, real time with image documentation, and maternal evaluation plus detailed anatomic examination, transabdominal approach;single or first gestation [id number]: Transvaginal Ultrasound (OB) Indication ----- --------- Screening for Anatomic Survey, Screening for cervical length, History of prior with gestational diabetes, History of prior with IUGR, History of prior with delivery, Hypothyroidism, Malformation of placenta- Low lying. History ----- --------- OB History 2. Para 1 [id number] Current ----- --------- Cell free DNA low risk analysis Maternal Assessment ----- --------- Physical Exam Height 165 cm, 5 ft 5 in. Weight 63 kg, 138 lb. Initial weight 63 kg, 138 lb. BMI 22.96 kg/m . Initial BMI 22.96 kg/m . Weight gain 0 kg, 0 lb Method ----- --------- Transabdominal and transvaginal ultrasound examination. View: Suboptimal view: limited by position. ----- --------- Gorman . Number of fetuses: 1 Dating ----- --------- LMP on: 06/16/2024 Cycle: regular cycle GA by LMP 20 w + 2 d RENATO by LMP: 03/23/2025 Previous Ultrasound on: 08/17/2024 Type of prior assessment: GA GA at prior assessment date 8 w + 5 d GA by previous U/S 20 w + 1 d RENATO by previous Ultrasound: 03/24/2025 Ultrasound examination on: 11/05/2024 GA by U/S based upon: AC, BPD, Femur, HC GA by U/S 20 w + 0 d RENATO by U/S: 03/25/2025 Assigned: based on the LMP, selected on 11/05/2024 Assigned GA (weeks days) 20 w + 2 d Assigned RENATO: 03/23/2025 General Evaluation ----- --------- Cardiac activity Present. FHR 150 bpm. Presentation: cephalic Placenta: Placental site: posterior, low lying Umbilical cord: Cord vessels: 3 vessel cord. Insertion site: normal insertion Amniotic fluid: Amount of AF: normal amount. MVP 3.7 cm Biometry ----- --------- Standard BPD 45.3 mm 19w 5d 25% Hadlock OFD 60.7 mm 20w 6d 73% Joanie HC 170.9 mm 19w 5d 17% Hadlock Cerebellum tr 19.9 mm 19w 1d 33% Hill Nuchal fold 4.7 mm AC 155.4 mm 20w 5d 58% Hadlock Femur 32.2 mm 20w 0d 33% Hadlock Humerus 31.8 mm 20w 4d 65% Joanie HC / AC 1.10 14% Hadlock EFW 345 g 45% Hadlock EFW (lb) 0 lb EFW (oz) 12 oz EFW by: Hadlock ([id number]) Extended Tibia 28.7 mm 20w 3d 62% Joanie Conflicts Analyst 5.7 mm CM 5.3 mm 58% Nicolaides Head / Face / Neck Cephalic index 0.75 11% Nicolaides Nasal bone: not examined Extremities / Bony Struc FL / BPD 0.71 54% Hadlock FL / HC 0.19 58% Hadlock FL / AC 0.21 18% Hadlock Other Structures FHR 150 bpm Anatomy ----- --------- The following structures appear normal: Head/Neck: Cranium. Lateral ventricles. Choroid plexus. Midline falx. Cavum septi pellucidi. Cerebellum. Cisterna magna. Parenchyma. Vermis. Neck. Nuchal fold. Heart/Thorax: RVOT view. Situs. Bicaval view. Cardiac rhythm. Right lung. Left lung. Abdomen: Abdom. wall. Cord insertion. Stomach. Kidneys. Bladder. Small bowel. Large bowel. Right renal artery. Left renal artery. Genitals. Extremities/Skeleton: Right upper arm. Right forearm. Right hand. Left upper arm. Left forearm. Left hand. Right upper leg. Right lower leg. Right foot. Left upper leg. Left foot. The following structures could not be adequately visualized: Heart / Thorax 4-chamber view. LVOT view. Aortic arch view. Interventricular septum. Cardiac position. Cardiac axis. Cardiac size. Diaphragm. Spine: Cervical spine. Thoracic spine. Lumbar spine. Sacral spine. Extremities / Left lower leg. Skeleton The following structures could not be examined: Face: Lips. Profile. Nose. Nasal bone. Maxilla. Mandible. Orbits. Heart / Thorax 3-vessel view. 0-mluhke-vaniuce view. Ductal arch view. Great vessels. Maternal Structures ----- --------- Uterus Visualized Cervix Visualized Approach - Transvaginal: Cervical length 3.27 cm Right Ovary Not visualized Left Ovary Not visualized Cul de Sac Visualized. No free fluid visualized Impression ----- --------- Single viable intrauterine consistent with 20w 2d with an RENATO of 03/23/2025. Transvaginal cervical length measures 3.27 cm. Amniotic fluid MVP measures 3.7 cm. Low lying placenta identified on today's exam, measuring 0.95 cm away from the internal cervical os. Recommendations ----- --------- Please see [facility] documentation from today. The patient is scheduled in two and three weeks for transvaginal ultrasound to evaluate placental location. The patient is scheduled in four to six week(s) to complete anatomic survey. Subsequent follow up or other follow up as clinically determined by primary OB provider unless otherwise specified by [facility]. Results forwarded to ordering provider so they can follow up with the patient as necessary. Procedure Note Jacklyn Blakely MD - 11/05/2024 NAME: KERRY MILLAN : 2000 SEX: F Accession Number: [id number] ORDERING PHYSICIAN: SHAUNA MARSHALL REFERRING PHYSICIAN: SHAUNA MARSHALL Coding ----- --------- Procedures [id number]: Ultrasound, uterus, real time with imagedocumentation, and maternal evaluation plus detailed anatomic examination, transabdominalapproach;single or first gestation [id number]: Transvaginal Ultrasound (OB) Indication ----- --------- Screening for Anatomic Survey, Screening for cervical length, History ofprior with gestational diabetes, History of prior with IUGR, History of prior with pretermdelivery, Hypothyroidism, Malformation of placenta- Low lying. History ----- --------- OB History 2. Para 1 [id number] Current ----- --------- Cell free DNA low risk analysis Maternal Assessment ----- --------- Physical Exam Height 165 cm, 5 ft 5 in. Weight 63 kg, 138 lb. Initialweight 63 kg, 138 lb. BMI 22.96 kg/m . Initial BMI 22.96 kg/m . Weight gain 0 kg, 0 lb Method ----- --------- Transabdominal and transvaginal ultrasound examination. View: Suboptimalview: limited by position. ----- --------- Gorman . Number of fetuses: 1 Dating ----- --------- LMP on: 06/16/2024 Cycle: regular cycle GA by LMP 20 w + 2 d RENATO by LMP: 03/23/2025 Previous Ultrasound on: 08/17/2024 Type of prior assessment: GA GA at prior assessment date 8 w + 5 d GA by previous U/S 20 w + 1 d RENATO by previous Ultrasound: 03/24/2025 Ultrasound examination on: 11/05/2024 GA by U/S based upon: AC, BPD, Femur, HC GA by U/S 20 w + 0 d RENATO by U/S: 03/25/2025 Assigned: based on the LMP, selected on 11/05/2024 Assigned GA (weeks days) 20 w + 2 d Assigned RENATO: 03/23/2025 General Evaluation ----- --------- Cardiac activity Present. FHR 150 bpm. Presentation: cephalic Placenta: Placental site: posterior, low lying Umbilical cord: Cord vessels: 3 vessel cord. Insertion site: normalinsertion Amniotic fluid: Amount of AF: normal amount. MVP 3.7 cm Biometry ----- --------- Standard BPD 45.3 mm 19w 5d 25% Hadlock OFD 60.7 mm 20w 6d 73% Joanie HC 170.9 mm 19w 5d 17% Hadlock Cerebellum tr 19.9 mm 19w 1d 33% Hill Nuchal fold 4.7 mm AC 155.4 mm 20w 5d 58% Hadlock Femur 32.2 mm 20w 0d 33% Hadlock Humerus 31.8 mm 20w 4d 65% Joanie HC / AC 1.10 14% Hadlock EFW 345 g 45% Hadlock EFW (lb) 0 lb EFW (oz) 12 oz EFW by: Hadlock ([id number]) Extended Tibia 28.7 mm 20w 3d 62% Joanie Conflicts Analyst 5.7 mm CM 5.3 mm 58% Nicolaides Head / Face / Neck Cephalic index 0.75 11% Nicolaides Nasal bone: not examined Extremities / Bony Struc FL / BPD 0.71 54% Hadlock FL / HC 0.19 58% Hadlock FL / AC 0.21 18% Hadlock Other Structures FHR 150 bpm Anatomy ----- --------- The following structures appear normal: Head/Neck: Cranium. Lateral ventricles. Choroid plexus. Midline falx.Cavum septi pellucidi. Cerebellum. Cisterna magna. Parenchyma. Vermis. Neck. Nuchal fold. Heart/Thorax: RVOT view. Situs. Bicaval view. Cardiac rhythm. Right lung. Left lung. Abdomen: Abdom. wall. Cord insertion. Stomach. Kidneys. Bladder. Smallbowel. Large bowel. Right renal artery. Left renal artery. Genitals. Extremities/Skeleton: Right upper arm. Right forearm. Right hand. Leftupper arm. Left forearm. Left hand. Right upper leg. Right lower leg. Right foot. Left upper leg. Left foot. The following structures could not be adequately visualized: Heart / Thorax 4-chamber view. LVOT view. Aortic arch view.Interventricular septum. Cardiac position. Cardiac axis. Cardiac size. Diaphragm. Spine: Cervical spine. Thoracic spine. Lumbar spine. Sacral spine. Extremities / Left lower leg. Skeleton The following structures could not be examined: Face: Lips. Profile. Nose. Nasal bone. Maxilla. Mandible. Orbits. Heart / Thorax 3-vessel view. 1-vepxkb-bcbyouz view. Ductal arch view.Great vessels. Maternal Structures ----- --------- Uterus Visualized Cervix Visualized Approach - Transvaginal: Cervical length 3.27 cm Right Ovary Not visualized Left Ovary Not visualized Cul de Sac Visualized. No free fluid visualized Impression ----- --------- Single viable intrauterine consistent with 20w 2d with an RENATO of03/23/2025. Transvaginal cervical length measures 3.27 cm. Amniotic fluid MVP measures 3.7 cm. Low lying placenta identified on today's exam, measuring 0.95 cm away fromthe internal cervical os. Recommendations ----- --------- Please see [facility] documentation from today. The patient is scheduled in two and three weeks for transvaginalultrasound to evaluate placental location. The patient is scheduled in four to six week(s) to complete anatomicsurvey. Subsequent follow up or other follow up as clinically determined byprimary OB provider unless otherwise specified by MFM. Results forwarded to ordering provider so they can follow up with thepatient as necessary. us Shauna R Joanna DO G US ORDERABLES Final Result documented in this encounter Visit Diagnoses Diagnosis Thyroid disease affecting History of prior with IUGR documented in this encounter Care Teams A&P Mechanic Relationship Specialty Start Date End Date Carrillo White MD PCP - General Internal Medicine 04/07/21 documented as of this encounter
--- OUTSIDE RECORDS SUMMARY | 2024-11-05 13:00 | XMS_ITS | Encounter Summary ---
Author Organization [email or web address] tem Address [id number] [address] [place] [address] Care Team Providers Care Seed Buyer Name Role Phone Carrillo White MD Primary Care Provider [phone] Reason for Visit * Reason Comments Hypothyroidism Hx previous FGR Encounter Details Date Type Department Care Team (Late st Contact Info) Description 11/05/2024 1:00 PM EDT Office Visit Maternal- Medicine at [facility] [address] [place] [address] Jacklyn Blakely MD [address] [address] 20 weeks gestation of (Primary Dx); Low-lying placenta; 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 trimester; History of prior with IUGR ; Family history of autism; History of gestational diabetes in prior , currently ; History of prior with short cervix, currently ; History of premature rupture of membranes Social History Tobacco Use Types Packs/Day Years Used Date Smoking Tobacco: Never Smokeless Tobacco: Never Alcohol Use Standard Drinks/Week Comments Not Currently 0 (1 standard drink = 0.6 oz pur e alcohol) [place] Depression Scale Answer Date Recorded [place] Depression Scale Total 6 06/04/2021 The thought [...] Sign Reading Time Taken Comments Blood Pressure 94/58 11/05/2024 11:51 AM EDT Pulse 94 11/05/2024 11:51 AM EDT Temperature - - Respiratory Rate - - Oxygen Saturation - - Inhaled Oxygen Concentration - - Weight 62.8 kg (138 lb 6.4 oz) 11/05/2024 11:51 AM EDT Height 165.1 cm (5' 5 ) 11/05/2024 11:51 AM EDT Body Mass Index 23.03 11/05/2024 11:51 AM EDT documented in this encounter Progress Notes * Nadira Salazar RN - 11/05/2024 1:00 PM EDT Headache/epigastric pain/blurry vision/swelling? Patient reports mild headaches. Denies other symptoms Cramping/contractions? No Spotting/vaginal bleeding? No Loss or gush of fluid like your water may have broken? No Do you have cats at home? No Do you change the litter box (reason: risk of toxoplasmosis)? NA Genetic testing done this here or other office? Yes, low risk Have you been seen here at [facility] in a previous ? Recent ER visits or hospitalizations? No Bring blood sugar log or meter with you today? (Please bring them with you for every visit at [facility]) NA Flu vaccine (Jan-May)? NA Any concerns that you would like me to mention to the provider today? No * Jacklyn Blakely MD - 11/05/2024 1:00 PM EDT [facility] Maternal- Medicine Consult Note Reason For Consult: Hypothyroidism, history of prior growth restriction HPI: Evelin Church is a 24 y.o. at 20w2d with Estimated Date of Delivery: 03/23/25 whopresented for consultation from Santosh Ordonez DO regarding Chief Complaint Patient presents with Hypothyroidism Hx previous FGR I have reviewed the pertinent available patient records including but not limited to notes, labs and images She presents today with her partner. She reports that she is doing well. She reports normal movements and she denies leakage of fluid, contractions or vaginal bleeding. She denies fever, chills, nausea, vomiting, shortness of breath, chest pain, headache, blurry vision, right upper quadrant pain or edema. Complications: Hypothyroidism on synthoid 125 mcg - she is due for repeat Thyroid labs (in August her TSH was 7.7 and her Synthroid was increased from 100 to 125 mcg) History of previous growth restriction History of delivery at 35 weeks and 4 days with a PROM Her daughter has autism and they tell me that she underwent genetic testing after the delivery and so far things has been negative History of short cervix in the prior used to be on progesterone cervical length today is normal History of gestational diabetes she passed her early 1 hour Glucola On ultrasound today low-lying placenta She had COVID during the prior Evelin has 2nd degree cousin with an autism however this child had history of skull fracture Father of the has factor 5 Her daughter has autism Denies family history of: Learning difficulties, congenital anomalies, DVT/VTE, or other inherited conditions Cell free DNA: low risk Carrier screen: no Denies smoking, alcohol or other substance use in Denies exposure to cat litter, farming animals, toxic exposure to chemical at work/environment Recent hospitalization: no Review of systems: Review of systems was noncontributory OB Hx: OB History Para Term AB Living 2 1 1 1 SAB IAB Ectopic Multiple Live Births 1 # Outcome Date GA Lbr Yuri/2nd Weight Sex Type Anes PTL Lv 2 Current 1 05/30/21 35w4d 1.814 kg F Vag-Spont None FREDRICK PMH: Past Medical History: Diagnosis Date Gestational diabetes Hypothyroidism Migraine Occasionally have them Short cervix Varicella Around the age of 8 Visual impairment Need corrective lenses PSHIST: Past Surgical History: Procedure Laterality Date WISDOM TOOTH EXTRACTION Allergies: No Known Allergies Meds: Current Outpatient Medications: levothyroxine (SYNTHROID, LEVOTHROID) 100 MCG tablet, Take 125 mcg by mouth in the morning., Disp: , Rfl: PNV no.95/ferrous fum/folic ac ( ORAL), Take by mouth in the morning., Disp: , Rfl: acetaminophen (TYLENOL EXTRA STRENGTH) 500 mg tablet, Take 2 tablets (1,000 mg total) by mouth every 8 (eight) hours as needed for pain. (Patient not taking: Reported on 11/05/2024), Disp: 30 tablet, Rfl: 0 aspirin 81 mg, Take 1 tablet (81 mg total) by mouth in the morning. (Patient not taking: Reported on 11/05/2024), Disp: , Rfl: docusate sodium (COLACE) 100 mg capsule, Take 1 capsule (100 mg total) by mouth in the morning and 1 capsule (100 mg total) before bedtime. (Patient not taking: Reported on 11/05/2024), Disp: 10 capsule, Rfl: 0 freestyle 28 gauge lancets, Use daily as directed & as needed (Patient not taking: Reported on 11/05/2024), Disp: , Rfl: FREESTYLE LITE METER kit, See Admin Instructions. (Patient not taking: Reported on 11/05/2024), Disp: , Rfl: magnesium oxide (MAGOX) 400 mg tablet, Take 1 tablet (400 mg total) by mouth in the morning. (Patient not taking: Reported on 11/05/2024), Disp: , Rfl: progesterone (FIRST-PROGESTERONE VGS) 200 mg suppository, Insert 1 suppository (200 mg total) into the vagina nightly. (Patient not taking: Reported on 11/05/2024), Disp: 30 each, Rfl: 0 SH: Social History Socioeconomic History Marital status: Spouse name: Not on file Number of children: Not on file Years of education: Not on file Highest education level: Not on file Occupational History Not on file Tobacco Use Smoking status: Never Smokeless tobacco: Never Vaping Use Vaping status: Never Used Substance and Sexual Activity Alcohol use: Not Currently Drug use: Never Sexual activity: Not Currently Partners: Male Other Topics Concern Not on file Social History Narrative Not on file Social Drivers of Health Financial Resource Strain: Not on file Food Insecurity: No Food Insecurity (11/05/2024) Hunger Screening Food Insecurity - Worry: Never True Food Insecurity - Inability: Never True Transportation Needs: Not on file Physical Activity: Not on file Stress: Not on file Social Connections: Not on file Interpersonal Safety: Not on file Housing Instability: Not on file Physical Exam: Vital Signs Vitals: 11/05/24 1151 BP: 94/58 BP Site: Right Arm BP Postition: Sitting BP CUFF SIZE: M (9-13 inches) Pulse: 94 Weight: 62.8 kg (138 lb 6.4 oz) Height: 165.1 cm (5' 5 ) Physical Exam: Gen: Not in acute distress, alert and oriented. Eyes: Pupils equal and reactive Chest: Nonlabored breathing Cardiac: Pulse was regular on vital signs assessment Abdomen: Gravid Skin/extremities: Appears intact. No visible lesions MS:no visible edema Neuro: No focal deficits Notes/Imaging/Labs reviewed Ultrasound findings Pertinent Ultrasound findings are Single viable intrauterine consistent with 20w 2d with an RENATO of 03/23/2025. Transvaginal cervical length measures 3.27 cm. Amniotic fluid MVP measures 3.7 cm. Low lying placenta identified on today's exam, measuring 0.95 cm away from the internal cervical os. Assessment/Plan 24 y.o. @ at 20w2d with Estimated Date of Delivery: 03/23/25 here for consultation regardin. 20 weeks gestation of 2. Low-lying placenta On ultrasound today low-lying placenta. Bleeding precautions and pelvic rest discussed. Placenta to be re-evaluated around 28-32 weeks. Increased risk of a section reviewed. 3. 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 trimester In regards to her hypothyroidism, although profound hypothyroidism is associated with an increase in numerous complications including miscarriage, premature delivery, placental abrutpion, preeclampsia, growth restriction, and neuro psychological and cognitive impairments, these risks are quite avoidable with routine replacement to a euthyroid state. She should have regular screening over the balance of her (typically every 4-6 weeks) with adjustments in her medication dose to maintain a euthyroid state. Specifically you should attempt to maintain TSH values less than 2.5 mU/L.After delivery, the dose of the thyroxine should be reduced to pre- levels and TSH measured 6 to 8 weeks later. 4. History of prior with IUGR 5. Family history of autism In her last she got COVID and then afterwards was diagnosed with growth restriction. Placenta pathology was also reviewed today with them. Now her daughter has autism genetic testing per family is negative. I do not have the records to review the full extent of genetic testing. Risk of recurrence in growth restriction discussed she will be candidate for surveillance and growth ultrasounds. I also reviewed the multifactorial nature of autism and risk of recurrence. Amniocentesis was reviewed and declined and they desire evaluation. 6. History of gestational diabetes in prior , currently At risk of gestational diabetes again. Please screen the patient. She also has a long-term risk for type 2 diabetes. 7. History of prior with short cervix, currently 8. History of premature rupture of membranes In her prepregnancy she had an incidental finding of a short cervix and was on vaginal progesterone. The patient delivered at 35 weeks when she presented with a PROM and was found to be 4 cm dilated. The patient was counseled that any history of a prior spontaneous before 37 weeks does come with an inherent risk of recurrence with future pregnancies. Intervention strategies to help reduce this recurrence risk were reviewed with the patient in great detail. Vaginal progesterone may be considered as a treatment option for patients with a history of pretermbirth, murphy gestation, and a shortened cervix. However, vaginal progesterone has not been proven effective in the absence of a shortened cervix and should not be considered as an alternative to 17-OHPC. Intramuscular 17-OHPC is not recommended for the primary prevention of in cristopher ents with a history of spontaneous . Vaginal progesterone reviewed today and she declined for now as her cervical length is normal. Dependent upon cervical length measurement, prior history, and past treatment, a discussion of the range of interventions available to prevent a recurrent should occur and a collaborative action plan should be developed. Serial cervical length surveillance via transvaginal ultrasound would also be recommended, at leastevery 2 weeks between 16 and 23w6d. Her cervical length is normal today. If her cervix becomes less than 2.5 cm the patient should further be evaluated regarding cerclage and or vaginal progesterone pending further counseling. She is a candidate for low-dose aspirin for preeclampsia prophylaxis. He has factor 5 laden. If he is heterozygous 50% risk for each of its offspring to inherit the gene. If he is homozygous then all of his offsprings are obligate carriers. Discussed screening Evelin and she declined. Recommendations: Low dose aspirin 81 mg q.day for preeclampsia prevention Cervical length surveillance scheduled Follow-up survey scheduled Serial growth assessments every 4 weeks after the anatomy scan at OB office testing to be initiated at 32 weeks weekly NST and DVP at OB office Placenta location to be re-evaluated at around 28-32 weeks. If low-lying placenta remains further recommendations regarding timing of delivery and route of delivery to be made by MFM. If low-lying placenta resolves delivery at 39 weeks recommended with a vaginal delivery preferred and section reserved for routine indications Monitor for signs and symptoms of labor Please monitor her thyroid function every 4-6 weeks and adjust Synthroid accordingly with a for a goal of TSH less than 2.5. she needs to go to the prepregnancy dose of Synthroid and have her thyroid function rechecked around 6 weeks after delivery. Please perform GDM screen Plan reviewed with patient. She vocalized understanding all questions answered. The patient is to continue with routine care in your office Thank you for allowing me to participate in her care. Please contact me if you have any concerns. Jacklyn Blakely MD, FACOG (she/hers) Maternal- Medicine [facility] [address] [facility] [address] [place] [address] This document was created with [employer] technology. Though I make every effort to review the dictation as it is transcribed, on occasion the spoken word can be misinterpreted by the technology leading to inappropriate words, phrases, or sentences. This note is addressed to the requesting provider as a consultation for clinical guidance. Specificmedical abbreviations are occasionally used and those are generally approved by the [place]?Board of?Obstetrics and?Gynecology?as well as?[place]???s abbreviations. The above plan of care was based solely on the diagnoses for which a consultation was requested. ?More frequent testing may be indicated based on her other medical/obstetrical conditions. The management of other or medical conditions is beyond the scope of requested consultation and will c ontinue to be followed by the primary xerox machine operator or primary care provider. Note to patient: The Century Cures Act makes medical notes like these available to patients inthe interest of transparency. However, be advised this is a medical document. It is intended as peer to peer communication. It is written in medical language and may contain abbreviations or verbiagethat are unfamiliar. It may appear blunt or direct. Medical documents are intended to carry relevant information, facts as evident, and the clinical opinion of the practitioner. documented in this encounter Plan of Treatment Upcoming Encounters Date Type Department Care Team (Late st Contact Info) Description 11/20/2024 3:45 PM EDT Appointment [facility] US Imaging [address] [place] [address] 11/27/2024 3:15 PM EDT Appointment [place] - Ultrasound [address] [place] [phone] 12/11/2024 2:15 PM EDT Appointment [place] - Ultrasound [address] [place] [phone] documented as of this encounter Visit Diagnoses Diagnosis 20 weeks gestation of - Primary Low-lying placenta Hemorrhage from placenta previa, unspecified as to episode of care 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 trimester History of prior with IUGR Family history of autism History of gestational diabetes in prior , currently with other poor obstetric history History of prior with short cervix, currently History of premature rupture of membranes documented in this encounter Care Teams Seed Buyer Relationship Specialty Start Date End Date Carrillo White MD PCP - General Internal Medicine 04/07/21 documented as of this encounter
--- OUTSIDE RECORDS SUMMARY | 2024-11-07 12:54 | XMS_ITS | Encounter Summary ---
Author Organization [employer] tem Address [id number] [address] [place] [address] Care Team Providers Care Harness Inspector Name Role Phone Carrillo hWite MD Primary Care Provider [phone] Encounter Details Date Type Department Care Team (Late Contact Info) Description 01/26/2021 Telephone [facility] Physicians [facility] [address] [place] [address] [address] [place] [phone] No Pcp, [place] [address] Social History Tobacco Use Types Packs/Day Years [...] Department Care Team (Late Contact Info) Description 11/20/2024 3:45 PM EDT Appointment [facility] US Imaging [address] [place] [address] 11/27/2024 3:15 PM EDT Appointment [facility] - Ultrasound [address] [place] [address] 12/11/2024 2:15 PM EDT Appointment [facility] - Ultrasound [address] [place] [phone] documented as of this encounter Visit Diagnoses Not on filedocumented in this encounter Additional Health Concerns Infection Onset Date Last Indicated Resolved Time COVID-19 Positive Comment:Positive 02/07. No current symptoms. No isolation required per algorithm 03/04/2021 03/04/2021 03/05/2021 9:[address] documented as of this encounter Care Teams Harness Inspector Relationship Specialty Start Date End Date Carrillo White MD PCP - General Internal Medicine 04/07/21 documented as of this encounter
--- OUTSIDE RECORDS SUMMARY | 2024-11-07 12:54 | XMS_ITS | Encounter Summary ---
Author Organization [facility] tem Address [id number] [address] [place] [address] Care Team Providers Care Paper Folder Name Role Phone Carrillo White MD Primary Care Provider [phone] Encounter Details Date Type Department Care Team (Latest Contact Info) Description 11/05/2024 Travel Social History Tobacco Use Types Packs/Day Years Used Date Smoking Tobacco: Never Smokeless Tobacco: Never Alcohol Use Standard Drinks/Week Comments Not Currently 0 (1 standard drink = 0.6 oz pur e alcohol) [place] Depression Scale Answer Date Recorded [place] Depression Scale Total 6 06/04/2021 The thought [...] Info) Description 11/20/2024 3:45 PM EDT Appointment [facility] US Imaging [address] [place] [address] 11/27/2024 3:15 PM EDT Appointment [facility] - Ultrasound [address] [place] [address] 12/11/2024 2:15 PM EDT Appointment [facility] - Ultrasound [address] [place] [address] documented as of this encounter Visit Diagnoses Not on filedocumented in this encounter Care Teams Paper Folder Relationship Specialty Start Date End Date Carrillo White MD PCP - General Internal Medicine 04/07/21 documented as of this encounter
--- OUTSIDE RECORDS SUMMARY | 2024-11-07 12:54 | XMS_ITS | Encounter Summary ---
Author Organization [employer] tem Address [id number] [address] [place] [address] Care Team Providers Care Tobacco Sample Puller Name Role Phone Carrillo White MD Primary Care Provider [phone] Reason for Referral * Diagnostic Imaging (Routine) - Pending Review Specialty Diagnoses / Procedures Referred By Contac t Referred To Contact Maternal and Medicine Diagnoses 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 trimester History of prior with IUGR History of premature rupture of membranes Procedures US MFM with or without consult Jacklyn Blakely MD [address] [employer], [address] [place] [address] Phone: tel: fax: Maternal- Medicine at [facility] [address] [place] [address] Phone: tel: fax: Referral ID Status Reason Start Date Expiration Date V isits Requested Visits Authorized [id number] Pending Review 11/06/2024 11/06/2025 1 1 * Diagnostic Imaging (Routine) - Pending Review Specialty Diagnoses / Procedures Referred By Contac t Referred To Contact Maternal and Medicine Diagnoses 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 trimester History of prior with IUGR History of premature rupture of membranes Procedures US MFM with or without consult Jacklyn Blakely MD [address] [address] Phone: tel: fax: Maternal- Medicine at [facility] [address] [place] [address] Phone: tel: fax: Referral ID Status Reason Start Date Expiration Date V isits Requested Visits Authorized [id number] Pending Review 11/06/2024 11/06/2025 1 1 * Diagnostic Imaging (Routine) - Pending Review Specialty Diagnoses / Procedures Referred By [place] t Referred To Contact Maternal and Medicine Diagnoses 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 trimester History of prior with IUGR History of premature rupture of membranes Procedures US M with or without consult Jacklyn Blakely MD [address] [address] Phone: tel: fax: Maternal- Medicine at [facility] [address] [place] [address] Phone: tel: fax: Referral ID Status Reason Start Date Expiration Date V isits Requested Visits Authorized [id number] Pending Review 11/06/2024 11/06/2025 1 1 Encounter Details Date Type Department Care Team (Late st Contact Info) Description 11/06/2024 Orders Only Maternal- Medicine at [facility] [address] [place] [phone] Ayaka Smith, RN 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 trimester (Primary Dx); History of prior with IUGR ; History of premature rupture of membranes Social History Tobacco Use Types Packs/Day Years Used Date Smoking Tobacco: Never Smokeless Tobacco: Never Alcohol Use Standard Drinks/Week Comments Not Currently 0 (1 standard drink = 0.6 oz pur e alcohol) [place] Depression Scale Answer Date Recorded [place] Depression Scale Total 6 06/04/2021 The thought [...] Info) Description 11/20/2024 3:45 PM EDT Appointment [facility] US Imaging [address] [place] [address] 11/27/2024 3:15 PM EDT Appointment [facility] - Ultrasound [address] [place] [address] 12/11/2024 2:15 PM EDT Appointment [facility] - Ultrasound [address] [place] [address] Scheduled Orders Name Type Priority Associated Diagnoses Orde r Schedule US MFM with or without consult Imaging Routine 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 trimester History of prior with IUGR History of premature rupture of membranes Expected: 11/06/2025 (Approximate), Expires: 11/06/2025 US MFM with or without consult Imaging Routine 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 trimester History of prior with IUGR History of premature rupture of membranes Expected: 11/06/2025 (Approximate), Expires: 11/06/2025 US MFM with or without consult Imaging Routine 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 trimester History of prior with IUGR History of premature rupture of membranes Expected: 11/06/2025 (Approximate), Expires: 11/06/2025 documented as of this encounter Visit Diagnoses Diagnosis 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 trimester- Primary History of prior with IUGR History of premature rupture of membranes documented in this encounter Care Teams Tobacco Sample Puller Relationship Specialty Start Date End Date Carrillo White MD PCP - General Internal Medicine 04/07/21 documented as of this encounter
--- OUTSIDE RECORDS SUMMARY | 2024-11-07 12:54 | XMS_ITS | Encounter Summary ---
Author Organization [employer] tem Address [facility] [id number] [address] [place] [address] Care Team Providers Care Hair Or Beauty Salon Manager Name Role Phone Carrillo White MD Primary Care Provider [phone] Encounter Details Date Type Department Care Team ([facility] Contact Info) Description 09/26/2024 Orders Only Maternal- Medicine at [facility] [address] [place] [phone] Ref Prov, [place] [address] Social History Tobacco Use Types Packs/Day Years Used Date Smoking Tobacco: Never Smokeless Tobacco: Never Alcohol Use Standard Drinks/Week Comments Not Currently 0 (1 standard drink = 0.6 oz pur e alcohol) Canadensis Depression Scale Answer Date Recorded Canadensis Depression Scale Total 6 06/04/2021 The thought [...] Info) Description 11/20/2024 3:45 PM EDT Appointment [facility] - [facility] US Imaging [address] [facility] [place] [address] 11/27/2024 3:15 PM EDT Appointment [facility] - Ultrasound [address] [facility] [address] 12/11/2024 2:15 PM EDT Appointment [facility] - Ultrasound [address] [place] [address] documented as of this encounter Procedures Procedure Name Priority Date/Time Associated Diagnosis Comments UNLISTED LAB TEST Routine 08/21/2024 8:38 AM EDT documented in this encounter Results * Unlisted Lab Test (08/21/2024 8:38 AM EDT) us Not In System Ref Prov LAB BLOOD ORDERABLES Whit l Result MANUALLY TRANSCRIBED RESULTS documented in this encounter Visit Diagnoses Not on filedocumented in this encounter Care Teams Hair Or Beauty Salon Manager Relationship Specialty Start Date End Date Carrillo White MD PCP - General Internal Medicine 04/07/21 documented as of this encounter
--- OUTSIDE RECORDS SUMMARY | 2024-11-07 12:54 | XMS_ITS | Encounter Summary ---
Author Organization [facility] Address [address] [facility] [place] [address] Care Team Providers Care Project Construction Assistant Manager Name Role Phone Carrillo White MD Primary Care Provider [phone] Encounter Details Date Type Department Care Team ([facility] Contact Info) Description 08/28/2024 Abstract [facility] [address] [place] [phone] Ann Ma MA Social History Tobacco Use [...] Upcoming Encounters Date Type Department Care Team ([facility] Contact Info) Description 11/12/2024 11:10 AM EDT Routine [facility] [address] [place] [phone] Santosh Marshall DO [facility] [place] [address] 01/01/2025 2:00 PM EDT Office Visit [facility] [address] [place] [address] Santosh Marshall, [address] [place] [address] documented as of this encounter Visit Diagnoses Not on filedocumented in this encounter Care Teams Project Construction Assistant Manager Relationship Specialty Start Date End Date Carrillo White MD [address] [place] [address] PCP - General Internal Medicine 11/29/22 documented as of this encounter
--- OUTSIDE RECORDS SUMMARY | 2024-11-07 12:54 | XMS_ITS | Encounter Summary ---
Author Organization [facility] [employer] tem Address [facility] [id number] [address] [place] [address] Care Team Providers Care Flamer Sealer Name Role Phone Carrillo White MD Primary Care Provider [phone] Encounter Details Date Type Department Care Team ([facility] Contact Info) Description 03/31/2021 Orders Only Maternal- Medicine at [facility] [address] [place] [phone] Cuca Rabago CMA GDM (gestational diabetes mellitus), [...] Upcoming Encounters Date Type Department Care Team ([facility] Contact Info) Description 11/20/2024 3:45 PM EDT Appointment [facility] - [facility] US Imaging [address] [place] [phone] 11/27/2024 3:15 PM EDT Appointment [facility] - Ultrasound [address] [place] [address] 12/11/2024 2:15 PM EDT Appointment [facility] - Ultrasound [address] [place] [address] documented as of this encounter Procedures Procedure Name Priority Date/Time Associated Diagnosis Comments POCT HEMOGLOBIN A1C Routine 03/31/2021 GDM (gestational diabetes mellitus), class A1 documented in this encounter Results * POCT Hemoglobin A1c (03/31/2021) External Poct Hgb A1C 5.1 % MANUALLY TRANSCRIBED RESULTS Blood 03/31/2021 us Betty Orellana PA-C POINT OF CARE TEST ORDERABL ES Final Result MANUALLY TRANSCRIBED RESULTS documented in this encounter Visit Diagnoses Diagnosis GDM (gestational diabetes mellitus), class A1- Primary Abnormal maternal glucose tolerance, complicating , childbirth, or the puerperium, unspecified as to episode of care documented in this encounter Care Teams Flamer Sealer Relationship Specialty Start Date End Date Carrillo White MD PCP - General Internal Medicine 04/07/21 documented as of this encounter
--- OUTSIDE RECORDS SUMMARY | 2024-11-07 12:54 | XMS_ITS | Encounter Summary ---
Author Organization [facility] Address [address] [facility] [place] [address] Care Team Providers Care Armhole Raiser Lockstitch Name Role Phone Carrillo White MD Primary Care Provider [phone] Encounter Details Date Type Department Care Team ([facility] Contact Info) Description 11/05/2024 External Result Encounter [facility] [address] [place] [phone] Shauna Marshall DO [facility] [address] [place], [facility] Social History Tobacco Use Types Packs/Day Years [...] Upcoming Encounters Date Type Department Care Team ([facility] Contact Info) Description 11/12/2024 11:10 AM EDT Routine [facility] [address] [place] [phone] Shauna Marshall DO [address] [place], [place] [phone] 01/01/2025 2:00 PM EDT Office Visit [facility] [address] [place] [address] Shauna Marshall DO [address] [place] [address] documented as of this encounter Procedures Procedure Name Priority Date/Time Associated Diagnosis Comments US OB 14+ WEEKS ANATOMY SCAN 11/05/2024 5:31 PM EDT documented in this encounter Results * US OB 14+ weeks anatomy scan (11/05/2024 5:31 PM EDT) Anatomical Region Laterality Modality Body Ultrasound 11/05/2024 5:31 PM EDT Narrative 11/05/2024 5:31 PM EDT THIS EXAM WAS PERFORMED AT [facility] NAME: KERRY MILLAN : 2000 SEX: F Accession Number: [id number] ORDERING PHYSICIAN: SHAUNA MARSHALL REFERRING PHYSICIAN: SHAUNA MARSHALL Coding ----- --------- Procedures 07744: Ultrasound, uterus, real time with image documentation, and maternal evaluation plus detailed anatomic examination, transabdominal approach;single or first gestation 40560: Transvaginal Ultrasound (OB) Indication ----- --------- Screening for Anatomic Survey, Screening for cervical length, History of prior with gestational diabetes, History of prior with IUGR, History of prior with delivery, Hypothyroidism, Malformation of placenta- Low lying. History ----- --------- OB History 2. Para 1 [id number] Current ----- --------- Cell free DNA low risk analysis Maternal Assessment ----- --------- Physical Exam Height 165 cm, 5 ft 5 in. Weight 63 kg, 138 lb. Initial weight 63 kg, 138 lb. BMI 22.96 kg/m???. Initial BMI 22.96 kg/m???. Weight gain 0 kg, 0 lb Method [...] EFW (oz) 12 oz EFW by: Hadlock ([id number]) Extended Tibia 28.7 mm 20w 3d 62% Joanie Sales Representative [employer] 5.7 mm CM 5.3 mm 58% Nicolaides [...] Mandible. Orbits. Heart / Thorax 3-vessel view. 1-vftjxs-cbfifui view. Ductal arch view. Great vessels. Maternal [...] cervical os. Recommendations ----- --------- Please see M documentation from today. The patient is scheduled in two and three weeks for transvaginal ultrasound to evaluate placental location. The patient is scheduled in four to six week(s) to complete anatomic survey. Subsequent follow up or other follow up as clinically determined by primary OB provider unless otherwise specified by [facility]. Results forwarded to ordering provider so they can follow up with the patient as necessary. Procedure Note Radiology, Radiologist, MD - 11/05/2024 THIS EXAM WAS PERFORMED AT [facility] NAME: KERRY MILLAN : 2000 SEX: F Accession Number: [id number] ORDERING PHYSICIAN: SHAUNA MARSHALL REFERRING PHYSICIAN: SHAUNA MARSHALL Coding ----- --------- Procedures [id number]: Ultrasound, uterus, real time with imagedocumentation, and maternal evaluation plus detailed anatomic examination, transabdominalapproach;single or first gestation 03481: Transvaginal Ultrasound (OB) Indication ----- --------- Screening for Anatomic Survey, Screening for cervical length, History ofprior with gestational diabetes, History of prior with IUGR, History of prior with pretermdelivery, Hypothyroidism, Malformation of placenta- Low lying. History ----- --------- OB History 2. Para 1 [id number] Current ----- --------- Cell free DNA low risk analysis Maternal Assessment ----- --------- Physical Exam Height 165 cm, 5 ft 5 in. Weight 63 kg, 138 lb. Initialweight 63 kg, 138 lb. BMI 22.96 kg/m???. Initial BMI 22.96 kg/m???. Weight gain 0 kg, 0 lb Method [...] EFW (oz) 12 oz EFW by: Hadlock ([id number]) Extended Tibia 28.7 mm 20w 3d 62% Joanie Sales Representative [employer] 5.7 mm CM 5.3 mm 58% Nicolaides [...] Mandible. Orbits. Heart / Thorax 3-vessel view. 7-wtfrkz-nflpsyh view. Ductal arch view.Great vessels. Maternal Structures [...] cervical os. Recommendations ----- --------- Please see MFM documentation from today. The patient is scheduled in two and three weeks for transvaginalultrasound to evaluate placental location. The patient is scheduled in four to six week(s) to complete anatomicsurvey. Subsequent follow up or other follow up as clinically determined byprimary OB provider unless otherwise specified by M. Results forwarded to ordering provider so they can follow up with thepatient as necessary. us Shauna Joanna DO IMG OB US PROCEDURES Final Resul t documented in this encounter Visit Diagnoses Not on filedocumented in this encounter Care Teams Armhole Raiser Lockstitch Relationship Specialty Start Date End Date Carrillo White MD [address] [place] [address] PCP - General Internal Medicine 11/29/22 documented as of this encounter
--- OUTSIDE RECORDS SUMMARY | 2024-11-07 12:54 | XMS_ITS | Encounter Summary ---
Author Organization [facility] [employer] tem Address [facility] [id number] [address] [place] [address] Care Team Providers Care Eye Physician Name Role Phone Carrillo White MD Primary Care Provider [phone] Encounter Details Date Type Department Care Team (Late Contact Info) Description 12/22/2020 Orders Only Maternal- Medicine at [facility] [address] [place] [phone] Santosh Marshall, DO [address] [facility] [place] [address] Social History Tobacco Use Types Packs/Day Years [...] Info) Description 11/20/2024 3:45 PM EDT Appointment [facility] - [facility] US Imaging [address] [place] [address] 11/27/2024 3:15 PM EDT Appointment [facility] - Ultrasound [address] [place] [address] 12/11/2024 2:15 PM EDT Appointment [facility] - Ultrasound [address] [place] [address] documented as of this encounter Procedures Procedure [...] documented as of this encounter Care Teams Eye Physician Relationship Specialty Start Date End Date Carrillo White MD PCP - General Internal Medicine 04/07/21 documented as of this encounter
--- OUTSIDE RECORDS SUMMARY | 2024-11-07 12:54 | XMS_ITS | Encounter Summary ---
Author Organization [facility] [employer] tem Address [facility] [id number] [address] [place] [address] Care Team Providers Care Industrial Safety And Health Technician Name Role Phone Carrillo White MD Primary Care Provider [phone] Encounter Details Date Type Department Care Team ([facility] Contact Info) Description 05/25/2021 Orders Only Maternal- Medicine at [facility] [address] [place] [phone] Yessica Sinha CMA Social History Tobacco Use [...] Upcoming Encounters Date Type Department Care Team ([facility] Contact Info) Description 11/20/2024 3:45 PM EDT Appointment [facility] - [facility] US Imaging [address] [place] [phone] 11/27/2024 3:15 PM EDT Appointment [facility] - Ultrasound [address] [place] [phone] 12/11/2024 2:15 PM EDT Appointment [facility] - Ultrasound [address] [facility] [place] [address] documented as of this encounter Visit Diagnoses Not on filedocumented in this encounter Care Teams Industrial Safety And Health Technician Relationship Specialty Start Date End Date Carrillo White MD PCP - General Internal Medicine 04/07/21 documented as of this encounter
--- OUTSIDE RECORDS SUMMARY | 2024-11-07 12:54 | XMS_ITS | Clinical Summary ---
Author Organization Multiply tem Address [facility] [place]-[id number] [address] [place] [address] Care Team Providers Care Rug Cutter Helper Name Role Phone Carrillo White MD Primary Care Provider [phone] Allergies No known active allergies Medications PNV no.95/ferrous fum/folic ac ( ORAL) Take by mouth in the morning. Active FREESTYLE LITE METER kit See Admin Instructions. 2 Active freestyle 28 gauge lancets Use daily as directed & as needed 2 Active acetaminophen (TYLENOL EXTRA STRENGTH) 500 mg tablet Take 2 tablets (1,000 mg total) by mouth every 8 (eight) hours as needed for pain. 30 tablet 2 Active Additional Information Patient not taking.Reported on 11/05/2024 levothyroxine (SYNTHROID, LEVOTHROID) 100 MCG tablet Take 125 mcg by mouth in the morning. Active magnesium oxide (MAGOX) 400 mg tablet Take 1 tablet (400 mg total) by mouth in the morning. Active aspirin 81 mg Take 1 tablet (81 mg total) by mouth in the morning. Active progesterone (FIRST-PROGESTE SUZANNE VGS) 200 mg suppositoryIndi cations:Hypothy roid in , antepartum, second trimester,Intra uterine growth restriction affecting care of mother, unspecified trimester, not applicable or unspecified fetus,Cervical shortening affecting in second trimester,Intra uterine growth restriction (IUGR) affecting care of mother, second trimester, single gestation,Encou nter for other screening follow-up Insert 1 suppository (200 mg total) into the vagina nightly. 30 each 2 025 Discontin ued(Thera py completed ) docusate sodium (COLACE) 100 mg capsule Take 1 capsule (100 mg total) by mouth in the morning and 1 capsule (100 mg total) before bedtime. 10 capsule 2 025 Discontin ued(Thera py completed ) ibuprofen (ADVIL,MOTRIN) 800 mg tablet Take 1 tablet (800 mg total) by mouth every 8 (eight) hours as needed (cramping). 30 tablet 2 025 Discontin ued(Thera py completed ) Active Problems Problem Noted Date Diagnosed Date Low-lying placenta 11/05/2024 History of prior with IUGR Family history of autism 11/05/2024 History of gestational diabe curtis in prior , currently 11/05/2024 History of prior w ith short cervix, currently 11/05/2024 History of premature rupture of membrane s 11/05/2024 Hypothyroidism affecting 03/07/2021 Overview (05/19/2021): 03/03/21 TSH 1.91 04/11 TSH not completed () On levothyroxine 125mcg Estimated Date of Delivery Comme nts Yes 03/23/2025 Based on last me nstrual period of 06/16/2024 Resolved Problems Problem Noted Date Diagnosed Date Resolved Date premature rupture of membranes 05/30/2021 11/05/2024 Diet controlled gestational diabetes mellitus (GDM) in third trimester 05/19/2021 11/05/2024 Short cervix during pregnanc y in third trimester 05/19/2021 11/05/2024 Overview (05/19/2021): Vaginal progesterone ANCS 03/03/21 and 03/04/21, rescue 05/12/21 and 05/13/21. labor 05/12/2021 11/05/2024 uterine contractions in third trimester, antepartum 04/21/2021 11/05/2024 affected by growth restriction 03/03/2021 11/05/2024 Overview (05/19/2021): 05/05/21: EFW 3%, AC 8%, nl DVP. Normal dopplers Encounters Date Type Department Care Team Description 11/06/2024 Orders Only Maternal- Medicine at [facility] [address] [place] [address] Ayaka Smith RN 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 trimester (Primary Dx); History of prior with IUGR ; History of premature rupture of membranes 11/05/2024 1:00 PM EDT Office Visit Maternal- Medicine at [facility] [address] [place] [address] Jacklyn Blakely MD 20 weeks gestation of (Primary Dx); Low-lying placenta; 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 trimester; History of prior with IUGR ; Family history of autism; History of gestational diabetes in prior , currently ; History of prior with short cervix, currently ; History of premature rupture of membranes 11/05/2024 11:30 AM EDT - 11/05/2024 11:59 PM EDT Hospital Encounter [facility] - [facility] US Imaging [address] [place] [address] Thyroid disease affecting ; History of prior with IUGR Discharge Disposition: Home 11/05/2024 Travel 09/26/2024 Orders Only Maternal- Medicine at [facility] [address] [place] [address] Ref Prov, Not In System 09/24/2024 Orders Only Maternal- Medicine at [facility] [address] [place] [address] Ref Prov, Not In System 09/24/2024 Abstract Maternal- Medicine at [facility] [address] [place] [address] Jacklyn Blakely MD 09/20/2024 Orders Only Maternal- Medicine at [facility] [address] [place] [address] Irene Gutierrez, RN Thyroid disease affecting (Primary Dx); History of prior with IUGR from Last 3 Months Immunizations Immunization Administration Dates Next Due Tdap 05/26/2021 Family History Medical History Relation Name Comments Diabetes Brother Oswaldo Diabetes Father Hypertension Father Colon cancer Maternal Grandmother Yanet Diabetes [...] drink = 0.6 oz pur e alcohol) [place] Depression Scale Answer Date Recorded [place] Depression Scale Total 6 06/04/2021 The thought [...] Pulse 94 11/05/2024 11:51 AM EDT Temperature 36.9 C (98.4 F) 06/04/2021 11:19 AM EDT Respiratory Rate 17 06/01/2021 9:10 AM EDT Oxygen Saturation 97% 05/19/2021 10:27 AM EST Inhaled Oxygen Concentration - - Weight 62.8 kg (138 lb 6.4 oz) 11/05/2024 11:51 AM EDT Height 165.1 cm (5' 5 ) 11/05/2024 11:51 AM EDT Body Mass Index 23.03 11/05/2024 11:51 AM EDT Plan of Treatment Upcoming Encounters Date Type Department Care Team (Late st Contact Info) Description 11/20/2024 3:45 PM EDT Appointment [facility] US Imaging [address] [place] [address] 11/27/2024 3:15 PM EDT Appointment [facility] - Ultrasound [address] [place] [address] 12/11/2024 2:15 PM EDT Appointment [facility] - Ultrasound [address] [place] [address] Health Maintenance Due Date Last Done Comments Pap Smear 2019 Depression Screening 06/04/2022 06/04/2021 Influenza Vaccine 11/19/2024 01/30/2009 Adult BMI Screening 11/05/2025 11/05/2024 Tobacco Screening 11/05/2025 11/05/2024 DTaP,Tdap and Td Vaccines (8 - Td or Tdap) 05/27/2031 05/26/2021, 06/22/2010, 10/16/2003, Additional history exists Medical Devices Not on file Procedures Procedure Name Priority Date/Time Associated Diagnosis Comments [facility] COMPREHENSIVE ANATOMIC SURVEY Routine 11/05/2024 1:27 PM EDT Thyroid disease affecting History of prior with IUGR UNLISTED LAB TEST Routine 08/21/2024 8:3 8 AM EDT TYPE AND SCREEN Routine 08/21/2024 CBC AND [...] EDT from Last 3 Months Results * US [facility] COMPREHENSIVE ANATOMIC SURVEY (11/05/2024 1:27 PM EDT) Anatomical Region Laterality Modality OB-POLICE CHIEF Ultrasound 11/05/2024 12:0 1 PM EDT Narrative 11/05/2024 5:31 PM EDT NAME: KERRY MILLAN : 2000 SEX: F Accession Number: [id number] ORDERING PHYSICIAN: SHAUNA MARSHALL REFERRING PHYSICIAN: SHAUNA MARSHALL Coding ----- --------- Procedures 35002: Ultrasound, uterus, real time with image documentation, and maternal evaluation plus detailed anatomic examination, transabdominal approach;single or first gestation 15453: Transvaginal Ultrasound (OB) Indication ----- --------- Screening for Anatomic Survey, Screening for cervical length, History of prior with gestational diabetes, History of prior with IUGR, History of prior with delivery, Hypothyroidism, Malformation of placenta- Low lying. History ----- --------- OB History 2. Para 1 [id number] Current ----- --------- Cell free DNA low [...] EFW (oz) 12 oz EFW by: Hadlock ([id number]) Extended Tibia 28.7 mm 20w 3d 62% Joanie [employer] Teacher 5.7 mm CM 5.3 mm 58% Nicolaides [...] Mandible. Orbits. Heart / Thorax 3-vessel view. 0-obdkbu-vxcftrx view. Ductal arch view. Great vessels. Maternal [...] cervical os. Recommendations ----- --------- Please see [facility] documentation from today. The patient is scheduled in two and three weeks for transvaginal ultrasound to evaluate placental location. The patient is scheduled in four to six week(s) to complete anatomic survey. Subsequent follow up or other follow up as clinically determined by primary OB provider unless otherwise specified by [facility]. Results forwarded to ordering provider so they can follow up with the patient as necessary. Procedure Note Jacklyn Blakely MD - 11/05/2024 NAME: KERRY MILLAN : 2000 SEX: F Accession Number: [id number] ORDERING PHYSICIAN: SHAUNA MARSHALL REFERRING PHYSICIAN: SHAUNA MARSHALL Coding ----- --------- Procedures [id number]: Ultrasound, uterus, real time with imagedocumentation, and maternal evaluation plus detailed anatomic examination, transabdominalapproach;single or first gestation 35665: Transvaginal Ultrasound (OB) Indication ----- --------- Screening for Anatomic Survey, Screening for cervical length, History ofprior with gestational diabetes, History of prior with IUGR, History of prior with pretermdelivery, Hypothyroidism, Malformation of placenta- Low lying. History ----- --------- OB History 2. Para 1 [id number] Current ----- --------- Cell free DNA low [...] EFW (oz) 12 oz EFW by: Hadlock ([id number]) Extended Tibia 28.7 mm 20w 3d 62% Joanie [employer] Teacher 5.7 mm CM 5.3 mm 58% Nicolaides [...] Mandible. Orbits. Heart / Thorax 3-vessel view. 6-juchif-aurjooq view. Ductal arch view.Great vessels. Maternal Structures [...] byprimary OB provider unless otherwise specified by [facility]. Results forwarded to ordering provider so they can follow up with thepatient as necessary. us Shauna Marshall DO [facility] US ORDERABLES Final Result * Unlisted Lab Test (08/21/2024 8:38 AM EDT) us Not In System Ref Prov LAB BLOOD ORDERABLES Whit l Result MANUALLY TRANSCRIBED RESULTS * HIV 1&2 AB/AG Screen (P24 AG) (08/21/2024) HIV 1&2 AB/AG non-reacti ve MANUALLY TRANSCRIBED RESULTS Blood Venous blood / Unknown us Not In System Ref Prov LAB BLOOD ORDERABLES Whit l Result MANUALLY TRANSCRIBED RESULTS * Rubella IGG immune status (08/21/2024) Pathologist [facility] Rubella immune IgG immune MANUALLY TRANSCRIBED RESULTS Blood Venous blood / Unknown us Not In System Ref Prov LAB BLOOD ORDERABLES Whit l Result Performing Organization Address City/[facility]/ZIP Co de Phone Number MANUALLY TRANSCRIBED RESULTS * Syphilis Total (Unknown Syphilis Status) (08/21/2024) Syphilis non-reacti ve MANUALLY TRANSCRIBED RESULTS Blood Venous blood / Unknown us Not In System Ref Prov LAB BLOOD ORDERABLES Whit l Result Performing Organization Address City/[facility] Co de Phone Number MANUALLY [...] ORDERABLES Final Re sult Performing Organization Address [facility] Co de Phone Number MANUALLY TRANSCRIBED RESULTS * Hepatitis B surface antigen (08/21/2024) Hepatitis B Surface Antigen negative MANUALLY TRANSCRIBED RESULTS Blood Venous blood / Unknown us Not In System Ref Prov LAB BLOOD ORDERABLES Whit l Result Performing Organization Address [facility] de Phone Number MANUALLY TRANSCRIBED RESULTS * CBC and differential (08/21/2024) Hemoglobin 13.7 12.0 - 16.0 g/dL MANUALLY TRANSCRIBED RESULTS Hematocrit 39 36 - 46 % MANUALLY TRANSCRIBED RESULTS Platelets 211 150 - 399 10*3/uL MANUALLY TRANSCRIBED RESULTS Auto WBC 7.8 3.3 - 10.0 10*3/mL MANUALLY TRANSCRIBED RESULTS Blood us Shauna R Joanna DO LAB BLOOD ORDERABLES Final Resu lt Performing Organization Address [facility] de Phone Number MANUALLY TRANSCRIBED RESULTS * Type and screen (08/21/2024) Abo/Rh(D) A Positive MANUALLY TRANSCRIBED RESULTS Antibody Screen negative MANUALLY TRANSCRIBED RESULTS Blood Venous blood / Unknown us Not In System Ref Prov BLOOD BANK TEST ORDERABLE S Final Result Performing Organization Address City/[facility]/ZIP Co de Phone Number MANUALLY TRANSCRIBED RESULTS * TSH (08/21/2024) Thyroid Stimulating (3Rd Generation) Hormone/ Tsh 7.721 MANUALLY TRANSCRIBED RESULTS Blood Venous blood / Unknown us Not In System Ref Prov LAB BLOOD ORDERABLES Whit l Result Performing Organization Address City/[facility]/ZIP Co de Phone Number MANUALLY TRANSCRIBED RESULTS * Hemoglobin A1c (08/21/2024) Hemoglobin A1C 5.6 4.0 - 6.0 % MANUALLY TRANSCRIBED RESULTS Blood Venous blood / Unknown us Shauna R Joanna DO LAB BLOOD ORDERABLES Final Resu lt MANUALLY TRANSCRIBED RESULTS * Ultrasound - Office (08/17/2024 11:12 AM EDT) Anatomical Region Laterality Modality AMB Ultrasound us Not In System Ref Prov IMG US ORDERABLES Final R esult from Last 3 Months Insurance Advance Directives * Full Code (Latest Code [...] 5:01 PM 03/26/2021 7:46 PM Care Teams Rug Cutter Helper Relationship Specialty Start Date End Date White, Carrillo K, MD PCP - General Internal Medicine 04/07/21
--- OUTSIDE RECORDS SUMMARY | 2024-11-07 12:54 | XMS_ITS | Clinical Summary ---
Author Organization [facility] Address [address] [place] [address] Care Team Providers Care General Internal Medicine Doctor Name Role Phone Carrillo White MD Primary Care Provider [phone] Allergies No known active allergies Medications levothyroxine (Synthroid) 125 MCG tabletIndicatio ns:Thyroid disease Take 1 tablet (125 mcg) by mouth in the morning. Take before meals. 30 tablet 11 5 09/18/19 26 Active MV-Min-Fe Fum-FA-DHA ( 1 PO) Take by mouth Active levothyroxine (Synthroid, Levoxyl) 100 MCG tablet Take 100 mcg by mouth Daily 5 10/16/19 25 Discontinued levothyroxine (Synthroid) 25 MCG tabletIndicatio ns:Thyroid disease Take 1 tablet (25 mcg) by mouth in the morning. Take before meals. 30 tablet 11 5 10/16/19 25 Discontinued Encounters Date Type Department Care Team Description 11/05/2024 External Result Encounter [facility] [address] [place] [address] Shauna Marshall DO 10/15/2024 9:50 AM EDT Routine [facility] [address] [place] [address] Erum Guidry PA Second trimester ([facility]); 17 weeks gestation of ([facility]) 10/15/2024 Clinisync Result Encounter [facility] External Department Unsolicited Erum Guidry PA 10/15/2024 Bamboo flowsheet [facility] [address] [address] Erum Guidry PA 10/02/2024 Clinisync Result Encounter NOM[facility] External Department Unsolicited Shauna Marshall, DO 09/24/2024 Clinisync Result Encounter NOM[facility] External Department Unsolicited Shauna Marshall, DO 09/19/2024 Telephone [facility] [address] [address] Shauna Marshall, DO 09/17/2024 10:50 AM EDT Routine [facility] [address] [place] [phone] Shauna Marshall, DO 13 weeks gestation of ([facility]); Second trimester ([facility]); Thyroid disease ; History of prior with IUGR ; Diabetes mellitus screening 09/17/2024 Telephone [facility] [address] [address] Aliya Jeronimo LPN 09/17/2024 Bamboo flowsheet [facility] [address] [place] [phone] Shauna Marshall, DO 09/12/2024 Clinisync Result Encounter [facility] External Department Unsolicited Shauna Marshall, DO 09/11/2024 Telephone [facility] [address] [address] Shauna Marshall, DO 09/11/2024 Telephone [facility] [address] [place] [address] Brit Alamo MA 09/11/2024 Telephone [facility] [address] [place] [address] Brit Alamo MA 08/30/2024 Telephone [facility] [address] [place] [address] Ann Ma MA 08/28/2024 Abstract [facility] [address] [place] [address] Ann Ma MA 08/22/2024 Telephone [facility] [address] [place] [address] Shauna Marshall, 08/21/2024 Clinisync Result Encounter NOMS External Department Unsolicited Shauna Marshall, DO 08/17/2024 9:30 AM EDT Initial [facility] [address] [place] [address] GA: 8w6d 08/17/2024 9:00 AM EDT Ancillary Procedure [facility] [address] [place] [address] Missed menses from Last 3 Months Family [...] Sign Reading Time Taken Comments Blood Pressure 118/70 10/15/2024 10:13 AM EDT Pulse - - Temperature - - Respiratory Rate - - Oxygen Saturation - - Inhaled Oxygen Concentration - - Weight 61 kg (134 lb 8 oz) 10/15/2024 10:13 AM E DT Height 165.1 cm (5' 5 ) 11/29/2022 3:23 PM EDT Body Mass Index 22.38 11/29/2022 3:23 PM EDT Plan of Treatment Upcoming Encounters Date Type Department Care Team (Late st Contact Info) Description 11/12/2024 11:10 AM EDT Routine [facility] [address] [facility] [place] [address] Shauna Marshall, DO [address] [place] [address] 01/01/2025 2:00 PM EDT Office Visit [facility] [address] [facility] [place] [address] Shauna Marshall, DO [address] [place] [address] Procedures Procedure Name Priority Date/Time Associated Diagnosis Comments US OB 14+ WEEKS ANATOMY SCAN 11/05/2024 5:31 PM EDT AFP, SERUM, OPEN SPINA BIFIDA Routine 10/15/2024 11:03 AM EDT POCT URINALYSIS DIPSTICK Routine 10/15/2024 10:19 AM EDT 17 weeks gestation of ([facility]) GLUCOSE 1 HOUR Routine 10/02/2024 10:33 AM EDT ALL MISCELLANEOUS TEST Routine 12:40 PM EDT ALL MISCELLANEOUS TEST Routine 4:33 PM EDT [...] menses from Last 3 Months Results * US OB 14+ weeks anatomy scan (11/05/2024 5:31 PM EDT) Anatomical Region Laterality Modality Body Ultrasound 11/05/2024 5:31 PM EDT Narrative 11/05/2024 5:31 PM EDT THIS EXAM WAS PERFORMED AT [facility] NAME: LILIANA MILLANMONI ESSIE : 2000 SEX: F Accession Number: [id number] ORDERING PHYSICIAN: SHAUNA MARSHALL REFERRING PHYSICIAN: SHAUNA MARSHALL Coding ----- --------- Procedures [id number]: Ultrasound, uterus, real time with image documentation, and maternal evaluation plus detailed anatomic examination, transabdominal approach;single or first gestation 61271: Transvaginal Ultrasound (OB) Indication ----- --------- Screening for Anatomic Survey, Screening for cervical length, History of prior with gestational diabetes, History of prior with IUGR, History of prior with delivery, Hypothyroidism, Malformation of placenta- Low lying. History ----- --------- OB History 2. Para 1 [id number] Current ----- --------- Cell free DNA low [...] Cerebellum tr 19.9 mm 19w 1d 33% Adams Nuchal fold 4.7 mm AC 155.4 mm 20w 5d 58% Hadlock Femur 32.2 mm 20w 0d 33% Hadlock Humerus 31.8 mm 20w 4d 65% Joanie HC / AC 1.10 14% Hadlock EFW 345 g 45% Hadlock EFW (lb) 0 lb EFW (oz) 12 oz EFW by: Hadlock ([id number]-FL) Extended Tibia 28.7 mm 20w 3d 62% Joanie Screw Machine Set Up Operator Tool 5.7 mm CM 5.3 mm 58% Nicolaides [...] Mandible. Orbits. Heart / Thorax 3-vessel view. 8-hobikz-aiegzin view. Ductal arch view. Great vessels. Maternal [...] cervical os. Recommendations ----- --------- Please see [facility] documentation from today. The patient is scheduled in two and three weeks for transvaginal ultrasound to evaluate placental location. The patient is scheduled in four to six week(s) to complete anatomic survey. Subsequent follow up or other follow up as clinically determined by primary OB provider unless otherwise specified by [facility]. Results forwarded to ordering provider so they can follow up with the patient as necessary. Procedure Note Radiology, Radiologist, - 11/05/2024 THIS EXAM WAS PERFORMED AT [facility] NAME: KERRY MILLAN : 2000 SEX: F Accession Number: [id number] ORDERING PHYSICIAN: SHAUNA MARSHALL REFERRING PHYSICIAN: SHAUNA MARSHALL Coding ----- --------- Procedures 72701: Ultrasound, uterus, real time with imagedocumentation, and maternal evaluation plus detailed anatomic examination, transabdominalapproach;single or first gestation 07412: Transvaginal Ultrasound (OB) Indication ----- --------- Screening for Anatomic Survey, Screening for cervical length, History ofprior with gestational diabetes, History of prior with IUGR, History of prior with pretermdelivery, Hypothyroidism, Malformation of placenta- Low lying. History ----- --------- OB History 2. Para 1 [id number] Current ----- --------- Cell free DNA low [...] EFW (oz) 12 oz EFW by: Hadlock ([id number]-FL) Extended Tibia 28.7 mm 20w 3d 62% Joanie Screw Machine Set Up Operator Tool 5.7 mm CM 5.3 mm 58% Nicolaides [...] Mandible. Orbits. Heart / Thorax 3-vessel view. 5-ziuwpb-vxaotvd view. Ductal arch view.Great vessels. Maternal Structures [...] IMG OB US PROCEDURES Final Resul t * AFP, SERUM, OPEN SPINA BIFIDA (10/15/2024 11:03 AM EDT) RESULTS Report . [facility] TEST RESULTS: *Screen Negative* . [facility] GEST. AGE ON COLLECTION DATE 17.3 . weeks [facility] GESTAT. AGE BASED ON LMP . [facility] Comment: Recalculations are not recommended when gestational dating by LMP and ultrasound are within 10 days. [age] [facility] RACE . [facility] WEIGHT 134 . lbs [facility] INSULIN DEP DIABETES No . [facility] MULTIPLE GESTATION No . H AFP VALUE 34.7 . ng/mL [facility] AFP MOM 0.82 . [facility] [place] [address] . [facility] INTERPRETATION Comment . [facility] Comment: Interpretation: Screen Negative This result is screen negative for OSB. [...] Customer Services to discuss available options. The [employer] recommends amniocentesis be offered to women age 35 and older. COMMENT: Comment . [facility] Comment: Alie Moon, Ph.D., [facility] Director References: Available Upon Request. Multiples Of Median Cutoffs For AFP Elevations Gorman 2.5 Black 2.8 IDD 2.0 Twins 4.5 Abbreviation Definitions IDD - Insulin Dep Diabetes OSBR - Open Spina Bifida Risk For further inquiries contact [facility] at [phone]. This test was developed and its performance characteristics determined by [employer]. It has not been cleared or approved by the Food and Drug Administration. Performed at: [facility] [address], [place], [place] [id number] Hostage Negotiator: Pily Meraz [facility], Phone: [phone] 10/15/2024 11:0 3 AM EDT 10/15/2024 11:04 AM EDT Narrative [facility] - 10/17/2024 1:07 AM EDT N N LMP [id number] 2 17 N 1 Y 134 N N N N N White/ Erum HAYS LAB BLOOD ORDERABLES Final [facility]ul t [facility] * POCT urinalysis dipstick manually resulted (10/15/2024 10:19 AM EDT) Only the most recent of2 resultswithin the time period is included. Color, UA Yellow Clarity, UA Clear Glucose, UA Negative Negative - 2000(110) ++++ mg/dL Bilirubin, UA Negative Negative - 4(70) +++ mg/dL Ketones, UA Negative Negative - 160(16) ++++ mg/dL Spec Grav, UA 1.015 1 - 1.03 Blood, UA Negative Negative - 50 Cedric/mcL pH, UA 6.0 5 - 9 Protein, UA Negative Negative - 2000(20) ++++ mg/dL Urobilinogen, UA 0.2 0.2 - 12 mg/dL Leukocytes, UA Negative Negative - 500+++ Ayana/mcL Nitrite, UA Negative Negative - Positive Urine 10/15/2024 10:1 9 AM EDT Shauna Marshall DO POINT OF CARE TEST ENTER/EDIT OR DERABLES Final Result * GLUCOSE 1 HOUR (10/02/2024 10:33 AM EDT) GLUCOSE 1 HOUR 108 <130 mg/dL [facility] 10/02/2024 10:3 3 AM EDT 10/02/2024 11:32 AM EDT Narrative [facility] - 10/02/2024 11:57 AM EDT Shauna Joanna DO LAB BLOOD ORDERABLES Final Resul t [facility] * ALL MISCELLANEOUS TEST (09/24/2024 12:40 PM EDT) Only the most recent of2 resultswithin the time period is included. Pathologist [facility] MISCELLANEOUS TEST COMMENT . [facility] Comment: Test Ordered: [id number] Parvovirus B19, Human, IgG/IgM Parvovirus B19, IgG 0.1 index Reference Range: 0.0-0.8 Negative <0.9 Equivocal 0.9 - 1.1 Positive >1.1 Parvovirus B19, IgM 0.1 index Reference Range: 0.0-0.8 Negative <0.9 Equivocal 0.9 - 1.1 Positive >1.1 Performed at: [facility] [address] [id number] Hostage Negotiator: Darion Moon MD, Phone: [phone] Performed at: [facility] [address] [id number] Hostage Negotiator: Madi Maloney PhD, Phone: [phone] 09/24/2024 12:4 0 PM EDT 09/24/2024 12:41 PM EDT Narrative [facility] - 09/26/2024 2:09 PM EDT [id number] Parvovirus B19 (Human), IgG, IgM us Shauna Joanna DO [facility] Final Result [facility] * BOX TEST (08/21/2024 11:01 AM EDT) BOX TEST SENT OUT UNITY BOX [facility] BOX1 UNITY [facility] BOX2 08/21/24 [facility] 08/21/2024 11:0 1 AM EDT 08/21/2024 11:09 AM EDT Narrative [facility] - 08/21/2024 11:56 AM EDT UNITY BOX Shauna Joanna DO LAB BLOOD ORDERABLES Final Resul t [facility] * HBSAG SCREEN (08/21/2024 11:01 AM EDT) Pathologist [facility] HBSAG SCREEN Negative Negative [facility] Comment: Performed at: [address] [id number] Hostage Negotiator: Madi Maloney PhD, Phone: [phone] 08/21/2024 11:0 1 AM EDT 08/21/2024 11:04 AM EDT [facility] 08/22/2024 12:09 PM EDT Shauna Joanna DO LAB BLOOD ORDERABLES Final Resul t Performing Organization Address City/[facility]/ZIP Co de Phone Number [facility] * RAPID PLASMA REAGIN, QUANT (08/21/2024 11:01 AM EDT) [facility] RAPID PLASMA REAGIN, QUANT Non Reactive NonRea<1: 1 titer [facility] Comment: Please Note: This test does not meet current guidelines for screening and diagnosis of syphilis. This test is intended for following treatment response in patients being treated for syphilis infection. To screen for syphilis infection, a reflex cascade that includes both RPR and a treponema-specific assay should be utilized, such as Treponema pallidum (Syphilis) Screening Travis (171987) or Rapid Plasma Reagin (RPR) Test With Reflex to Quantitative RPR and Confirmatory Treponema pallidum Antibodies ([id number]). Performed at: [address] [id number] Hostage Negotiator: Madi Maloney PhD, Phone: [phone] 08/21/2024 11:0 1 AM EDT 08/21/2024 11:04 AM EDT Narrative [facility] - 08/22/2024 12:09 PM EDT us Shauna Joanna DO LAB BLOOD ORDERABLES Final Resul t Performing Organization Address [facility] Co de Phone Number [facility] * HIV AB/P24 AG WITH REFLEX (08/21/2024 11:01 AM EDT) Pathologist [facility] HIV AB/P24 AG SCREEN Non Reactive Non Reactive [facility] Comment: HIV-1/HIV-2 antibodies and HIV-1 p24 antigen were NOT detected. There is no laboratory evidence of HIV infection. HIV Negative Performed at: [address] [id number] Hostage Negotiator: Madi Maloney PhD, Phone: [phone] 08/21/2024 11:0 1 AM EDT 08/21/2024 11:04 AM EDT Narrative [facility] - 08/22/2024 6:08 AM EDT us [address] [facility] DO LAB BLOOD ORDERABLES Final Resul t Performing Organization Address [facility] de Phone Number [facility] * HCV ANTIBODY RFX TO QUANT PCR (08/21/2024 11:01 AM EDT) Pathologist [facility] HCV AB Non Reactive Non Reactive [facility] INTERPRETATION: Comment . [facility] Comment: Not infected with HCV unless early or acute infection is suspected (which may be delayed in an immunocompromised individual), or other evidence exists to indicate HCV infection. Performed at: [address] [id number] Hostage Negotiator: Madi Maloney PhD, Phone: [phone] 08/21/2024 11:0 1 AM EDT 08/21/2024 11:04 AM EDT Narrative [facility] - 08/22/2024 7:08 AM EDT us Shauna Joanna DO LAB BLOOD ORDERABLES Final Resul t Performing Organization Address [facility] Co de Phone Number [facility] * MLR HEMOGLOBIN A1C (08/21/2024 11:01 AM EDT) GLYCOHEMOGLOBIN A1C 5.6 4.5 - 6.2 % [facility] Comment: ADA RECOMMENDED LIMIT 4.0 - 6.0 ADA THERAPEUTIC TARGET < 7.0 ACTION SUGGESTED > 7.0 ESTIMATED AVERAGE GLUCOSE 114 mg/dL TB 08/21/2024 11:0 1 AM EDT 08/21/2024 11:04 AM EDT Narrative [facility] - 08/21/2024 1:05 PM EDT [facility] [facility] DO [facility] * ALL TYPE AND SCREEN (08/21/2024 11:01 AM EDT) Pathologist [facility] BLOOD TYPE A Positive [facility] ANTIBODY SCREEN NEGATIVE TB 08/21/2024 11:0 1 AM EDT 08/21/2024 11:04 AM EDT Narrative [facility] - 08/21/2024 12:03 PM EDT [facility] , [address] [facility] DO CLINISYNC Final Result Performing Organization Address City/[facility]/ZIP Co de Phone Number [facility] * (ABNORMAL) ALL THYROID STIM HORMONE (08/21/2024 11:01 AM EDT) Pathologist [facility] THYROID STIMULATING HORMONE 7.721(H) 0.358 - 3.740 uIU/mL TB 08/21/2024 11:0 1 AM EDT 08/21/2024 11:04 AM EDT Narrative [facility] - 08/21/2024 1:06 PM ED[address] [facility] [facility] DO [facility] * ALL RUBELLA IGG AB (08/21/2024 11:01 AM EDT) RUBELLA ANTIBODIES, IGG 2.13 Immune >0.99 index [facility] Comment: Non-immune <0.90 Equivocal 0.90 - 0.99 Immune >0.99 Performed at: [facility] [address] [id number] Hostage Negotiator: Madi Maloney PhD, Phone: [phone] 08/21/2024 11:0 1 AM EDT 08/21/2024 11:04 AM EDT Narrative [facility] - 08/22/2024 7:08 AM EDT us Shauna Joanna DO CLINISYNC Final Result [facility] * (ABNORMAL) ALL CBC WITH AUTO DIFF (08/21/2024 11:01 AM EDT) [facility] WBC 7.8 4.0 - 11.0 10 3/uL TBH TB RBC 4.09(L) 4.20 - 5.40 10 6/uL [facility] TB HGB 13.7 12.0 - 16.0 g/dL TB TB HCT 38.5 36.0 - 48.0 % [facility] TB MCV 94.1 81.0 - 99.0 fL [facility] TB MCH 33.5 26.7 - 34.0 pg TBH TB MCHC 35.6(H) 29.9 - 35.2 g/dL TB TB RDW 12.3 11.0 - 15.0 % TBH TBH PLT 211 150 - 450 10 3/uL TBH TB MPV 11.1 9.5 - 13.5 fL TBH [...] Narrative [facility] - 08/21/2024 11:10 AM EDT Shauna Bhaktao DO CL[facility] Final Result [facility] * [facility]H DRUG SCREEN RAPID (URINE) (08/21/2024 [...] AM EDT 08/21/2024 11:10 AM EDT Narrative [facility] - 08/21/2024 11:25 AM EDT us Shauna Joanna DO CL[facility]IS[facility] Final Result [facility] * (ABNORMAL) POCT , urine manually resulted (08/17/2024 9:29 AM EDT) Preg Test, Ur Positive Negative Urine 08/17/2024 9:29 AM EDT us Shauna Joanna DO POINT OF CARE TEST ENTER/EDIT [...] II, MD, PHD at 20-Aug-2024 10:22:40 AM [facility] Procedure Note Clay Carlin MD - [...] signed by CLAY CARLIN II, MD, PHD [id number] 10:22:40 AM [facility] us Shauna Marshall DO IMG OB US PROCEDURES Final Resul t from Last 3 Months Insurance BCBS Care Teams General Internal Medicine Doctor Relationship Specialty Start Date End Date Carrillo White MD [address] [place] [address] PCP - General Internal Medicine 11/29/22
--- OUTSIDE RECORDS SUMMARY | 2024-11-07 12:54 | XMS_ITS | Encounter Summary ---
Author Organization [facility] Address [address] [facility] [place] [address] Care Team Providers Care Lime Spreader Name Role Phone Carrillo White MD Primary Care Provider [phone] Encounter Details Date Type Department Care Team ([facility] Contact Info) Description 12/19/2023 Orders Only [facility] [address] [place] [phone] Carmita Tapia LPN [address] [facility] [address] [place] [address] Social History Tobacco Use Types Packs/Day Years [...] Upcoming Encounters Date Type Department Care Team ([facility] Contact Info) Description 11/12/2024 11:10 AM EDT Routine [facility] [address] [place] [phone] Santosh Marshlal DO [address] [place], [place] [id number] 01/01/2025 2:00 PM EDT Office Visit [facility] [address] [place] [address] Santosh Marshall DO [address] [place] [address] documented as of this encounter Procedures Procedure Name Priority Date/Time Associated Diagnosis Comments PAP SMEAR Routine 12/12/2023 12:00 AM EDT documented in this encounter Results * Pap Smear (12/12/2023 12:00 AM EDT) Swab Cervical swab / Unknown Joanna Nurse [facility] LAB CYTOLOGY ORDERABLES Final Result EXTERNAL LAB documented in this encounter Visit Diagnoses Not on filedocumented in this encounter Care Teams Lime Spreader Relationship Specialty Start Date End Date Carrillo White MD [address] [place] [address] PCP - General Internal Medicine 11/29/22 documented as of this encounter
--- OUTSIDE RECORDS SUMMARY | 2024-11-07 13:04 | XMS_ITS | CCD ---
Author Organization [facility] Care Team Providers Care Nuclear Physician Name Role Phone JOANNA, DR VILLATORO Admitting [...] Referring Unavailable Norberto, Ya L Admitting Unavailable Staci White MD Primary Care Provider [phone] Carmita Jurado MD Unavailable CARMITA JURADO Referring Unavailable CARMITA JURADO Attending Unavailable Norberto Ya L Primary Care Physician Marta Almanzar Attending Unavailable Marta Almanzar Admitting Unavailable Marta Almanzar Attending Unavailable Norberto, Ya L Admitting Unavailable Norberto, Ya L Attending Unavailable Marta Almanzar Attending Unavailable Ham Robins Attending Unavailable Ham Robins Attending Unavailable Marta Almanzar Attending Unavailable Marta Almanzar Admitting Unavailable Unavailable Primary Care Provider UnavailStaci Kirk MD Primary Care Provider [phone] SANTOSH MARSHALL Attending Unavailable ERUM GUIDRY Attending Unavailable SANTOSH MARSHALL Attending Unavailable SANTOSH MARSHALL Referring Unavailable STACI WHITE Primary Care Unavailable JACKLYN CAMPOS Attending Unavailable SANTOSH MARSHALL Referring Unavailable STACI WHITE Primary Care Unavailable Medications Current Medications Medication Drug Class(es) Dates Sig (Normalized) Sig (Original) acetaminophen 500 mg oral tablet (3 sources) Start: 06-01-2021 take 2 tablets by mouth every eight hours as needed for pain acetaminophen (TYLENOL EXTRA STRENGTH) 500 mg tablet Take 2 tablets (1,000 mg total) by mouth every 8 (eight) hours as needed for pain. 30 tablet 06/01/2021 Active aspirin 81 mg delayed release oral tablet (3 sources) Platelet Aggregation Inhibitor, Nonsteroidal Anti-inflammatory Drug take [...] day(s), # 28 cap(s), Refills(s) 0, Pharmacy: [facility], 166, cm, 03/09/23 7:33:00 EST, Height/Length Dosing, 58.7, kg, 03/09/23 7:33:00 EST, Weight Dosing Start Date: 03/09/23 Stop Date: 03/16/23 Status: Ordered Colace (3 sources) Start: 11-30-2022 Colace Refills(s) 0 Start Date: 11/30/22 Status: Ordered Start: 06-01-2021 End: 11-05-2024 take 1 capsule by mouth in the morning, then take 1 capsule by mouth at bedtime docusate sodium (COLACE) 100 mg capsule Take 1 capsule (100 mg total) by mouth in the morning and 1 capsule (100 mg total) before bedtime. 10 capsule 06/01/2021 11/05/2024 Discontinued (Therapy completed) Flonase (3 sources) Corticosteroid Start: 09-10-2018 Flonase Nasal, Daily, Refill(s) 0 Start Date: 09/10/18 Status: Ordered FREESTYLE LITE METER kit (3 sources) Start: 03-26-2021 FREESTYLE LITE METER kit See Admin Instructions. 03/26/2021 Active hydrocortisone acetate 0.025 mg/mg / lidocaine hydrochloride 0.03 mg/mg rectal gel (2 sources) Antiarrhythmic, Corticosteroid, Amide Local Anesthetic Start: 11-19-2022 hydrocortisone-lido brianna 2.5%-3% rectal gel with applicator 1 carmen, Rectal, BID, 60 EA, Refill(s) 1, [id number], 166, cm, 11/11/22 9:28:00 EDT, Height/Length Dosing, 59.4, kg, 11/11/22 9:28:00 EDT, Weight Dosing Start Date: 11/19/22 Status: Ordered Start: 11-11-2022 hydrocortisone -lidocaine 2.5%-3% rectal gel with applicator 1 carmen, Rectal, BID, 60 EA, Refill(s) 1, [facility], 166, cm, 11/11/22 9:28:00 EDT, Height/Length Dosing, 59.4, kg, 11/11/22 9:28:00 EDT, Weight Dosing Start Date: 11/11/22 Status: Ordered levothyroxine sodium 0.125 mg oral tablet (20 [...] Discontinued Start: 06-19-2024 take 1 tablet by stephanie th once daily Synthroid 100 mcg Tab 100 mcg = 1 tab(s), Oral, Daily, # 90 tab(s), Refills(s) 0, Pharmacy: [facility], 166, cm, 08/08/23 15:44:00 EDT, Height/Length [...] Daily, # 90 tab(s), Refills(s) 1, Pharmacy: [facility], 166, cm, 05/16/23 14:25:00 EST, Height/Length Dosing, 56.7, kg, 05/16/23 14:25:00 EST, Weight Dosing Start Date: 05/16/23 Status: Ordered Start: 02-07-2023 take 1 tablet by stephanie once daily Synthroid 112 mcg Tab 112 mcg = 1 tab(s), Oral, Daily, # 60 tab(s), Refills(s) 0, Pharmacy: [facility], 166, cm, 11/30/22 12:12:00 EDT, Height/Length Dosing, 58.8, kg, 11/30/22 12:12:00 EDT, Weight Dosing Start Date: 02/07/23 Status: Ordered Start: 10-08-2022 take 1 tablet by stephanie once daily Synthroid 112 mcg Tab 112 mcg = 1 tab(s), Oral, Daily, # 60 tab(s), Refills(s) 0, Pharmacy: [facility], 166, cm, 10/08/22 15:10:00 EDT, Height/Length [...] Daily, # 90 tab(s), Refills(s) 3, Pharmacy: [facility], 166, cm, 05/03/22 14:21:00 EST, Height/Length Dosing, 61.2, kg, 05/03/22 14:21:00 EST, Weight Dosing Start Date: 05/03/22 Status: Ordered levothyroxine (S YNTHROID, LEVOTHROID) 100 MCG tablet Take 125 mcg by mouth in the morning. Active loratadine 10 mg oral tablet (13 sources) Start: 12-05-2019 take 1 tablet by mouth once daily Claritin 10 mg Tab 10 mg, Oral, Daily, # 10 tab(s), Refills(s) 0, Pharmacy: [facility], 166, cm, 12/05/19 13:03:00 EDT, Height/Length Dosing, 61.6, kg, 12/05/19 13:03:00 EDT, Weight Dosing Start Date: 12/05/19 Status: Ordered Quantity: 10.0 Unit: tab(s) Repeat number: 1 magnesium oxide 400 mg oral tablet (5 sources) Start: 08-17-2024 End: 09-16-2024 take 1 [...] day(s), # 9 tab(s), Refills(s) 0, Pharmacy: [facility], 166, cm, 03/09/23 7:33:00 EST, Height/Length Dosing, 58.7, kg, 03/09/23 7:33:00 EST, Weight Dosing Start Date: 03/09/23 Stop Date: 03/12/23 Status: Ordered Start: 02-21-2023 End: 02-24-2023 take 1 tablet by mouth three times daily Pyridium 200 mg Tab 200 mg = 1 tab(s), Oral, TID, X 3 day(s), # 9 tab(s), Refills(s) 0, Pharmacy: [facility], 166, cm, 02/21/23 13:06:00 EST, Height/Length Dosing, 58.6, kg, 02/21/23 13:06:00 EST, Weight Dosing Start Date: 02/21/23 Stop Date: 02/24/23 Status: Ordered PNV no.95/ferrous fum/folic ac ( ORAL) (3 sources) PNV no.95/ferrou s fum/folic ac ( ORAL) Take by mouth in the morning. Active PNV no.95/ferrou s fum/folic ac ( ORAL) Take by mouth daily. Active polyethylene glycol 3350 457956 mg / potassium chloride 1480 mg / sodium bicarbonate 5720 mg / sodium chloride 40947 mg powder for oral solution (11 sources) Osmotic Laxative Start: 11-30-2022 NuLYTELY Lauren ry oral powder for reconstitution See Instructions, 1 EA, Refill(s) 0, Prior to colonoscopy., [facility] #[id number], 166, cm, 11/30/22 12:12:00 EDT, Height/Length Dosing, 58.8, kg, 11/30/22 12:12:00 EDT, Weight Dosing Start Date: 11/30/22 Status: Ordered Quantity: 1.0 Unit: EA Repeat number: 1 MV-Min-Fe Fum-FA-DHA ( 1 PO) (3 sources) MV-Min- Fe Fum-FA-DHA ( 1 PO) Take by mouth Active Completed/Discontinued Medications Medication Drug Class(es) Dates Sig (Normalized) Sig (Original) ibuprofen 800 mg oral tablet (2 sources) Nonsteroidal Anti-inflammatory Drug Start: 06-01-2021 End: 11-05-2024 take 1 tablet by mouth every eight hours as needed ibuprofen (ADVIL,MOTRIN) 800 mg tablet Take 1 tablet (800 mg total) by mouth every 8 (eight) hours as needed (cramping). 30 tablet 06/01/2021 11/05/2024 Discontinued (Therapy completed) nitrofurantoin, macrocrystals 25 mg / nitrofurantoin, monohydrate 75 mg oral capsule (6 sources) Nitrofuran Antibacterial Start: 09-11-2024 End: 09-18-2024 take 1 capsule by mouth in the morning nitrofurantoin, macrocrystal-monoh ydrate, (Macrobid) 100 MG capsule Indications: Urinary tract [...] day(s), # 10 cap(s), Refills(s) 0, Pharmacy: [facility], 166, cm, 02/21/23 13:06:00 EST, Height/Length Dosing, 58.6, kg, 02/21/23 13:06:00 EST, Weight Dosing Start Date: 02/21/23 Stop Date: 02/26/23 Status: Ordered progesterone (FIRST-PROGESTE SUZANNE VGS) 200 mg suppository (2 sources) Start: 03-26-2021 End: 11-05-2024 progesterone (FIRST-PROGESTERONE VGS) 200 mg suppository Indications: [...] into the vagina nightly. 30 each 03/26/2021 11/05/2024 Discontinued (Therapy completed) Start: 03-26-2021 progesterone ( FIRST-PROGESTERONE VGS) 200 mg suppository Indications: Hypothyroid in [...] the vagina nightly. 30 each 03/26/2021 Active Problems Active Problems Problem Classification Problem Date Documented Da te Episodic/Chronic Abdominal pain (13 sources) Abdominal pain 09-29-2020 Episodic Bacterial infection; unspecified site (1 source) Infection due to Escherichia coli; Translations: [Unspecified Escherichia coli [E. coli] as the cause of diseases classified elsewhere] Onset: 03-24-2023 Episodic Diabetes or abnormal glucose tolerance complicating ; childbirth; or the puerperium (18 sources) History of gestational diabetes mellitus; Translations: [Gestational diabetes mellitus] Onset: 05-19-2021 Resolved: 11-05-2024 10-08-2022 Episodic Genitourinary symptoms and ill-defined conditions (4 sources) Dysuria; Translations: [Dysuria] Onset: 02-21-2023 Episodic Headache; including migraine (13 sources) Migraine without aura 06-30-2020 Chronic Headache; including migraine (6 sources) Headache; Translations: [Nonintractable headache, unspecified chronicity pattern, unspecified headache type] 11-19-2020 Episodic Hemorrhage during ; abruptio placenta; placenta previa (4 sources) Low lying placenta; Translations: [Low lying placenta NOS or without hemorrhage, unspecified trimester] Onset: 11-05-2024 11-05-2024 Episodic Hemorrhoids (15 sources) Hemorrhoids; Translations: [Unspecified [...] Onset: 08-08-2023 08-12-2020 Chronic Other complications of (5 sources) Endocrine, nutritional and metabolic diseases complicating , unspecified trimester; Translations: [ENDOCRN NUTR MET DZ COMP PG UNS TRI] Onset: 02-24-2021 Episodic Other complications of (2 sources) Thyroid disease in mother complicating , childbirth AND/OR puerperium; Translations: [Endocrine, nutritional and metabolic diseases complicating , unspecified trimester] 09-20-2024 Episodic Other complications of (8 sources) Hypothyroidism in ; Translations: [Endocrine, nutritional and metabolic diseases complicating , unspecified trimester] Onset: 03-07-2021 05-19-2021 Episodic Other complications of (3 sources) History of gynecological disorder; Translations: [Supervision of with other poor reproductive or obstetric history, unspecified trimester] Onset: 11-05-2024 11-05-2024 Episodic Other endocrine disorders (4 sources) Hypoglycemia [...] of colon 11-30-2022 Episodic Residual codes; unclassified (4 sources) Family history of autism; Translations: [Family history of other mental and behavioral disorders] Onset: 11-05-2024 05-14-2024 Episodic Residual codes; unclassified (2 sources) Gestation period, 13 weeks; Translations: [13 weeks gestation of ] 09-17-2024 Episodic Residual codes; unclassified (11 sources) History of previous intrauterine growth restricted ; Translations: [Personal history of other complications of , childbirth and the puerperium] Onset: 11-05-2024 09-17-2024 Episodic Residual codes; unclassified (2 sources) Gestation period, 17 weeks; Translations: [17 weeks gestation of ] 10-15-2024 Episodic Residual codes; unclassified (1 source) Gestation period, 20 weeks; Translations: [20 weeks gestation of ] 11-05-2024 Episodic Residual codes; unclassified (7 sources) History of premature rupture of membranes; Translations: [Personal history of other complications of , childbirth and the puerperium] Onset: 11-05-2024 11-05-2024 Episodic Residual codes; unclassified (1 source) 20 weeks gestation of ; Translations: [20 weeks gestation of ] Onset: 11-05-2024 Episodic Residual codes; unclassified (1 source) Personal history of other complications of , childbirth and the puerperium; Translations: [Personal history of other complications of , childbirth and the puerperium] Onset: 11-05-2024 Episodic Thyroid disorders (20 sources) Hypothyroidism, unspecified; Translations: [Hypothyroidism] Onset: 02-28-2021 Chronic Thyroid disorders (8 sources) Disorder of thyroid, unspecified; Translations: [Disorder of thyroid gland] Onset: 12-19-2020 Episodic Unclassified (13 sources) Body mass index 20-24 - normal 11-19-2020 Unclassified (13 sources) Non-smoker 06-30-2020 Unclassified (5 sources) Pain of knee region 09-29-2020 Unclassified (8 sources) Patient encounter status 10-08-2022 Unclassified (3 sources) Rectum finding 11-30-2022 Unclassified (8 sources) Finding of sensation of bladder 03-09-2023 Unclassified (1 source) Hx previous FGR Onset: 11-05-2024 Urinary tract infections (13 sources) Acute cystitis; Translations: [Acute cystitis without hematuria] Onset: 02-21-2023 Episodic Past or Other Problems Problem Classification Problem Date Documented Date Episodic/Chronic Early or threatened labor (6 sources) Premature uterine contraction; Translations: [False labor before 37 completed weeks of gestation, third trimester] Onset: 04-21-2021 Resolved: 11-05-2024 04-21-2021 Episodic Other complications of (3 sources) Disorder of ; Translations: [Maternal care for other known or suspected poor growth, unspecified trimester, not applicable or unspecified] Onset: 03-03-2021 Resolved: 11-05-2024 05-19-2021 Episodic Other complications of (3 sources) Short cervical length in ; Translations: [Cervical shortening, third trimester] Onset: 05-19-2021 Resolved: 11-05-2024 05-19-2021 Episodic Other female genital disorders (4 sources) Other specified noninflammatory disorders of vagina; Translations: [OTH SPEC NONINFLAMMATORY D/O VAGINA] Onset: 07-13-2021 Episodic Polyhydramnios and other problems of amniotic cavity (3 sources) premature rupture of membranes ; Translations: [ premature rupture of membranes, unspecified as to length of time between rupture and onset of labor, unspecified trimester] Onset: 05-30-2021 Resolved: 11-05-2024 05-30-2021 Episodic Results Test Name Value Interpretation Reference Range Facil ity AFP, SERUM, OPEN SPINA BIFID Aon 10-17-2024 AFP MOM 0.82 . [facility] AFP VALUE 34.7 ng/mL . [facility] COMMENT: Comment . [facility] Comment on above: Alie Moon , Ph.D., [facility] Director References: Available Upon Request. Multiples Of Median Cutoffs For AFP Elevations Murphy 2.5 Black 2.8 IDD 2.0 Twins 4.5 Abbreviation Definitions IDD - Insulin Dep Diabetes OSBR - Open Spina Bifida Risk For further inquiries contact [facility] at [phone]. This test was developed and its performance characteristics determined by [facility]. It has not been cleared or approved by the Food and Drug Administration. Performed at: [facility] [place] [address], [place] [id number] [employer] Installer: Pily Meraz [facility], Phone: [phone] GEST. AGE ON COLLECTION DATE 17.3 . weeks [facility] GESTAT. AGE BASED ON LMP . [facility] Comment on above: Recalculations are n ot recommended when gestational dating by LMP and ultrasound are within 10 days. INSULIN DEP DIABETES No . [facility] INTERPRETATION Comment . [facility] Comment on above: Interpretation: Scre en Negative This result is screen negative for [...] Customer Services to discuss available options. The [place] [employer] recommends amniocentesis be offered to women age 35 and older. [age] [facility] MULTIPLE GESTATION No . [facility] OSBR RISK [address] [place] [id number] . [facility] RACE . [facility] RESULTS Report . [facility] TEST RESULTS: Negative . [facility] WEIGHT 134 . lbs [facility] N N LMP [id number] 2 17 N 1 Y 134 N N N N N White/ [facility] Urinalysis macro (dipstick) panel (U)on 10-15-2024 Bilirubin, UA Negative Negative - 4(7 0) +++ mg/dL [facility] Blood, UA Negative Negative - 50 Cedric/mcL [facility] Clarity, UA Clear [facility] Color, UA Yellow [facility] Glucose, UA Negative Negative - 2000(110) ++++ mg/dL [facility] Interpretation and review of laboratory results Normal [facility] Ketones, UA Negative Negative - 160(16) ++++ mg/dL [facility] Leukocytes, UA Negative Negative - 50 0+++ Ayana/mcL [facility] Nitrite, UA Negative Negative - Positive [facility] pH, UA 6 5 - 9 [facility] Protein, UA Negative Negative - 1999(20) ++++ mg/dL [facility] Spec Grav, UA 1.015 1 - 1.03 [facility] Urobilinogen, UA 0.2 0.2 - 12 mg/dL [facility] GLUCOSE 1 HOURon 10-02-2024 Glucose [Mass/Vol] 108 mg/dL NINF - 130 mg/dL [facility] ALL MISCELLANEOUS TESTon MISCELLANEOUS TEST COMMENT . [facility] Comment on above: Test Ordered: [id number] Parvovirus B19, Human, IgG/IgM Parvovirus B19, IgG 0.1 index Reference Range: 0.0-0.8 Negative <0.9 Equivocal 0.9 - 1.1 Positive >1.1 Parvovirus B19, IgM 0.1 index Reference Range: 0.0-0.8 Negative <0.9 Equivocal 0.9 - 1.1 Positive >1.1 Performed at: [address] [id number] [employer] Installer: Darion Moon MD, Phone: [phone] Performed at: [address] [id number] [employer] Installer: Madi Maloney PhD, Phone: [phone] Parvovirus B19 (Human), IgG, IgM [facility] ALL MISCELLANEOUS TESTon MISCELLANEOUS TEST COMMENT . [facility] Comment on above: Test Ordered: [id number] Parvovirus B19, Human, IgG/IgM Parvovirus B19, IgG 0.1 index Reference Range: 0.0-0.8 Negative <0.9 Equivocal 0.9 - 1.1 Positive >1.1 Parvovirus B19, IgM 0.1 index Reference Range: 0.0-0.8 Negative <0.9 Equivocal 0.9 - 1.1 Positive >1.1 Performed at: [address] [id number] [employer] Installer: Darion Moon MD, Phone: [phone] Performed at: [id number] [place], [place] [id number] [employer] Installer: Madi Maloney PhD, Phone: [phone] Parvovirus B19 (Human), IgG, IgM [facility] ALL CBC WITH AUTO DIFFon BASOPHILS ABSOLUTE AUTO 0 [facility] Basophils/100 WBC (Bld) 0.5 % 0.2 - 2.0 % [facility] Eosinophils/100 WBC (Bld) 0.5 % Low 0.9 - 7.0 % [facility] Erythrocyte distribution width (RBC) [Ratio] 12.3 % 11.0 - 15.0 % [facility] Hematocrit (Bld) [Volume fraction] 38.5 % 36.0 - 48.0 % [facility] IMMATURE GRANULOCYTES ABS AUTO 0.02 [facility] Immature granulocytes/100 WBC (Bld) 0.3 % 0.0 - 0.5 % [facility] Interpretation and review of laboratory results Abnormal [facility] LYMPHOCYTES ABSOLUTE AUTO 1.6 [facility] Lymphocytes/100 WBC (Bld) 21 % 20.5 - 60.0 % [facility] MCH (RBC) [Entitic mass] 33.5 pg 26.7 - 34.0 pg [facility] MCHC (RBC) [Mass/Vol] 35.6 g/dL High 29.9 - 35.2 g/dL [facility] MCV (RBC) [Entitic vol] 94.1 fL 81.0 - 99.0 fL [facility] MONOCYTES ABSOLUTE AUTO 0.4 [facility] Monocytes/100 WBC (Bld) 5.1 % 1.7 - 12.0 % [facility] NEUTROPHILS ABSOLUTE AUTO 5.6 [facility] Neutrophils/100 WBC (Bld) 72.6 % 43.0 - 75.0 % [facility] Platelet mean volume (Bld) [Entitic vol] 11.1 fL 9.5 - 13.5 fL [facility] TBH EO # 0 [facility] TBH PLT [address] [facility] RBC 4.09 Low [facility] TB WBC 7.8 [facility] CBC and differentialon 08-21 Hematocrit (Bld) [Volume fraction] 39 % 36 - 46 % [facility] Platelets (Bld) [#/Vol] 211 10*3/uL 150 - 399 10*3/uL [facility] WBC (Bld) [#/Vol] 7.8 10*3/mL 3.3 - 10.0 10*3/mL [facility] Drug Screen, Urineon 025 Amphetamine/Methamph etamine Negative [facility] Barbiturates Negative [facility] Benzodiazepines Negative [facility] Cocaine Metabolite Negative [facility] Methadone Negative [facility] Opiates Negative [facility] Oxycodone Negative [facility] Phencyclidine Negative [facility] Thc Marijuana, Urine Negative [facility] HBV surface Ag IA Qlon 08-21 Hepatitis B Surface Antigen Negative [facility] HCV Ab IA Qlon 08-21-2024 HCV Ab Ql (S) Non-Reactive [facility] HIV 1+2 Ab+HIV1 p24 Ag IA Ql on 08-21-2024 HIV 1&2 AB/AG Non-Reactive [facility] Hemoglobin A1con 08-21-2024 HbA1c (Bld) [Mass fraction] 5.6 % 4.0 - 6.0 % [facility] Laboratory - Hematology and Cell countson 08-21-2024 Hemoglobin (Bld) [Mass/Vol] 13.7 g/dL 12.0 - 16.0 g/dL [facility] No Panel Informationon 08-21 [facility] Rubella IGG immune statuson 08-21-2024 Rubella immune IgG immune [facility] T. pallidum IgG+IgM IA Ql (S )Ordered By: Nadira Salazar on 08-21-2024 Syphilis Non-Reactive [facility] TSHon 08-21-2024 Thyroid Stimulating (3Rd Generation) Hormone/ Tsh 7.721 [facility] Type and screenon 08-21-2024 Abo/Rh(D) Positive [facility] HCG ( test) Ql (U)o n 08-17-2024 Interpretation and review of laboratory results Abnormal [facility] Preg Test, Ur Positive Negative [facility] US OB TRANSVAGINALon 025 US OB TRANSVAGINAL [...] II, MD, PHD at 20-Aug-2024 10:22:40 AM [facility] USAradMyze Normal Not Available Comment on above: Order Comment: US OB TRANSVAGINAL No LMP recorded. Urinalysis macro (dipstick) panel (U)on 08-17-2024 Bilirubin, UA Negative Negative - 4(7 0) +++ mg/dL [facility] Blood, UA Negative Negative - 50 Cedric/mcL [facility] Clarity, UA Clear [facility] Color, UA Yellow [facility] Glucose, UA Negative Negative - 1999(110) ++++ mg/dL [facility] Interpretation and review of laboratory results Normal [facility] Ketones, UA Negative Negative - 160(16) ++++ mg/dL [facility] Leukocytes, UA Negative Negative - 50 0+++ Ayana/mcL [facility] Nitrite, UA Negative Negative - Positive [facility] pH, UA 7 5 - 9 [facility] Protein, UA Negative Negative - 1999(20) ++++ mg/dL [facility] Spec Grav, UA 1.015 1 - 1.03 [facility] Urobilinogen, UA 0.2 0.2 - 12 mg/dL [facility] Ambulatory Visit Summaryon 0 - Ambulatory Visit Summary Ambulatory Visit Summary YANA CHURCH :2000 Visit Date:07/09/2024 Ambulatory Visit Instructions Your Diagnosis Establishing care with new doctor, encounter for Hypothyroidism Migraine without aura Non-smoker BMI 22.0-22.9, adult Your Care Team Attending Physician - Marta Rivas Primary Care Physician - Norberto BARTLETT, Ya Alexandre This Is Your Medications List Contact prescribing [...] 8:40 AM EDT With: Marta Rivas Where: [facility] [address] [place] [address] Medications What How Much When Why Instructions [...] for choosing us for your care. Normal Jhonny [facility] Family Medicine Office/Clini c Noteon 07-09-2024 Family [...] anymore, managed with tylenol Social History: Occupation: [employer] Family life: home with and daughter Diet: no restrictions Caffeine: 1 cup coffee/day Exercise: active lifestyle Alcohol use: denies Drug use: denies Smoking status: denies Health Maintenance: Routine labs: thyroid labs 06/2024, declines further labs Pap (21-64yo): 04/2023 Specialists: Twisting Frame Changer: rosario Dentist: rosario OBGYN: Joanna Review of [...] Recheck TSH/T (more content not included)... Normal [facility] Comment on above: Result Comment: Elec [...] 8:00 AM EDT With: Marta Rivas Where: [facility] [address] [place] [address]- Medications What How Much When Why Instructions New amoxicillin-clavulan ate (Augmentin 875 mg-125 mg Tab) 1 Tablets By Mouth Every 12 hours Acute sinusitis Duration: 10 Days Pickup at [facility] Unchanged levothyroxine (Synthroid 100 mcg Tab) 1 Tablets By Mouth Every day Pharmacy Information [facility]: [address] [place], [place] [id number] [phone] Allergies No Known Allergies Problems Ongoing - [...] Normal [facility] Family Medicine Office/Clini c Noteon [...] for 10 day(s), 20 tab(s), Refill(s) 0, [facility], 166, cm, 07/05/24 15:34:00 EDT, Height/Length [...] When Contact Information Julienne BARTLETT, Ham Montano, [facility], [facility] [address] [facility], [address] [phone] Additional Instructions: as scheduled with Marta Patient Education Sinus Infection, Adult, Foho-yc-Emms How to Perform a Sinus Rinse, Xhdf-mz-Pdtt Problem List/Past Medical History Ongoing Acute sinusitis [...] vaccine, inactivated (more content not included)... Normal [facility] Comment on above: Result Comment: Elec tronically Signed By: Julienne BARTLETT, Ham Montano\.br\Date and Time Signed: 07/05/24 16:06 EDT CHEMISTRYOrdered By: SYSTEM SYSTEM on 07-04-2024 Free T4 [Mass/Vol] 0.82 ng/dL Normal 0.58 - 1.64 ng/dL Remisol Chem TSH Qn 3.09 m[IU]/L Normal 0.34 - 5.60 mcIU/mL Remisol Chem Free T4on 07-04-2024 Free T4 [Mass/Vol] 0.82 ng/dL Normal 0.58-1.64 [facility] Comment on above: Performed By: #### 2 [id number] #### [facility] [address] [place] [address] TSHon 07-04-2024 TSH Qn 3.09 m[IU]/L Normal 0.34-5.60 [facility] Comment on above: Performed By: #### 2 [id number] #### [facility] [address] [place] [address] DNA EXTRACTION AND HOLDon Method Gentra Puregene Reagents from [employer] Invalid Interpretation Code [facility] Comment on above: Order Comment: Relea se to patient->Automatic Nucleic Acid Concentration 273.2 ng/uL Invalid Interpretation Code [facility] Comment on above: Order Comment: Relea se to patient->Automatic Nucleic Acid Purity 1.90 Invalid Interpretation Code 1.70-2.10 [facility] Comment on above: Order Comment: Relea se to patient->Automatic Signature . Invalid Interpretation Code [facility] Comment on above: Order Comment: Relea se to patient->Automatic Storage and Special Instructions Invalid Interpretation Code [facility] Comment on above: Order Comment: Relea se to patient->Automatic Result Comment: The extracted DNA is stored in the [facility] at -70 degrees C and is being held for future testing. If there are any questions regarding this sample, please contact the [facility] at [phone]. Total DNA Yield 82.0 ug Invalid Interpretation Code [facility] Comment on above: Order Comment: Relea se to patient->Automatic Total Volume DNA 300 ul Invalid Interpretation Code [facility] Comment on above: Order Comment: Relea se to patient->Automatic IGP,APTIMA HPV,AGE GDLNon AGE GDLN ACOG TESTING Note . [facility] Comment on above: TESTS RESULT FLAG UN ITS REF RANGE LAB Clinician Provided Cytology Information Source.............Cervix;Endocervix No. of containers..01 ThinPrep Vial Age Algo ACOG Francheska... FLAG LEGEND: L-Low Normal,H-High Normal,LL-Alert Low,HH-Alert High <-Panic Low,>-Panic High,A-Abnormal,AA-Critical Abnormal Performed at: 01 =G [facility] [place] [address] Sugey Torres MD, IGP, RFX APTIMA HPV ASCU Note . [facility] Comment on above: TESTS RESULT FLAG UN ITS REF RANGE LAB DIAGNOSIS: 02 NEGATIVE FOR INTRAEPITHELIAL LESION OR MALIGNANCY. Specimen adequacy: 02 Satisfactory for evaluation. Endocervical and/or squamous metaplastic cells (endocervical component) are present. Performed by: Jarred Rhoades, Film Maker ([facility]) . 02 Note: Note 02 The [...] <-Panic Low,>-Panic High,A-Abnormal,AA-Critical Abnormal Performed at: [address] [address] Sugey Torres MD, Performed at: = - [facility] [id number] Drapery Installer: Sugey Torres MD, Phone: [phone] Performed at: - [facility] [id number] Drapery Installer: Sugey Torres MD, Phone: [phone] BRUSH-SPATULA CERVIX ENDOCERVIX [facility] Coding Summary.on 09-14-2023 Coding Summary. NYMGJgdq65GIb4eUv+PG hlYWQ+VO1FOIFhH30yeX RpxB1tQ2WFORrOGqwnFW VBQXlRKgNjbjRqMF8xaM NjZXJu IC8+YU1jPKYkHofcyELr x9Q3qJL0H60rka8wJWqx vWQ0HJWmVdCkbfzoi7nm mVd0UFfmImzaHbPt DBFiuM69NGY1rW75Jc81 uHFivLXkp7tfzPj8XsMp PQUeAFA3kYssCNeix2Ao PFQrP19ioCBhy2R3 IGNvbGxhcHNlOyBlbXB0 eJ1eGWksnmcoe6itcvqh Iej7bc15zZCsm9L7qAC9 F5UkdgO1YQMvzPXc FfmgvXOPzU2czkgnr9tc fyynKjEtRKLrYEq3GZi0 ITOclCyuNcSbIU38HJR4 WBJdnkHmN0HyTICe aUlyCjW8o4O0Py6NN6XN SekpJ7NEUYLTQLgmwBC+ II04xu32N9EjHfpqLow7 BRAdVIO1mDR2kP9v ZXGhPDmnw1M8sIG7V4Dm wpCobb7yz1zcPFUpGZfd I77zlOZzo2A3HDPquTJ7 CVXetDwwNjYitR88 Oyc+OVLtdQley0JdTnsm j0fab8yygXy1CipnPFOl ceMlxCitAMW2j8AuEg4g DWLizYG1bQL0zP9d HhOdCyO5MYltZ957SpVs aDQcVadlC02gR5LfdBR+ ATEzHxb0QEZaaNwmPJ9p W6ZgSUZhkuaeuWTk kSndQR6gNABcfebjVSHo hF7hZHSfM6e5QoDbAkG2 NWydE7ExUCQafbwrRn78 fD4hMqWkWaN4VXqw N8GihgS7YKZssFUqTYhn MTI7H96sg5Y9UYKgFOOw TKM8eSJ3tA4gbGckspdp bGVmdDsgdmVydGlj QLzfNOiyQ245FLDlxVzr PkNvZGluZyBEYXRlOiAg MDYvMjYvMjAyNDwvdGQ+ KFQyROX4cGddCDEe tALnAVchVv0rlGkfbTks AM4hXASvstgnIIIyeY2j IWVafHHiqLupJG0qSROd zpjyr254MkByTRL7 PTXevOLhB7RncW9uSuQe ZLBcVROgN9AycSKoSRmx V375BPyiLoS9MCJpvdHz O4QrQQWstDbyLyD9 d2T1Bn8Pw2BiekzbL2Lx mRVyByFaAxyhQMq7N2Mu PjwvdHI+TQ44KEQsGJ65 UTr9KTH2fZdcTUhd JTCmK6JxsC8eGaEcMTKw ZGRkOyc+PHRhYmxlIHdp ZHRoPScxMDAlJyBzdHls HY7hCs4nVYRnXVGs nSmgsMKbYxWzr4mgWBUn XJttJD6bqHxiP6QteHI8 IQKzp4f8Ew41T18cG5Km dXA+DHSdhFM5vJY8 oF7uHxLtThY2JAtaQ541 PhAfiYTmCyczc3qza9vt pQh0NwX9HRYnqwRxyPfk VFQ4p5LmQx15R18l IHdpZHRoPSIxNSUiIHZh gXuyfl4qaS4xYp2+PGNv iDF4hUT3hZ0sNpRwAiL9 VMsuU291LdJmsQBw Lsxfo3qre3vwmLv4UcHr CQOovcOkqDcpMQW3d1Zm Ko77S9BsoQvjz8HjMyd1 sc67nAJpn1W5lYY0 X3OuJDGofmvqvGHxoEbx MH4jIKOhyszkPXJvsL1x WJXkV7g2EhJjAgG3ULic J3SkbeN7XOWzwNTh XNRpsRCNeZ8ohtdqz3wn gtntDyYnLBJkMQg2CNf5 GSNjgNquYuSuCQD0FeA9 XYA2oKEhnH9ddQff feqsvK0eFvg+PHE3wGXk tFLESH0fGbjicQZ+PHRk ERV5lSjmLVmgVNSivE8l JWZnN5x3UuBrOtH5 CCbwY3BgnkO8KYIrnVUl ORPlsXOUrZ1iqrcky8rn qvrmDtViQTRqPFd1CFe6 LWFsaWduOiBsZWZ0 SdF9FEM7rDZkcM1zlNqe jjunbN8sRta+QmlydGgg RYL2HLl3S1GjLmy1DHIf iImaUZ8adPRyVOro Gj2faMkpaVebZW2hMPIt bpmcj534BoTqw4scLVEy rXKtKAenNUV2X21wm6B2 VOBqXGQjXQM8aOI3 oD5riVhxkfdrwTEiyGrc gzYymHqtMWijBFwdU147 LVKoqQbdGxFtYLr0I5Qi Vks1UQZyxMtrYM9h mUHlGDiwVg0wsDpjnJwk VA5iAALqnayji172TbBd e4tcAQRwpVKuNKkbCLN5 V04rx3F1NWAeMGXu VRJ5bGG0tN0znZzfchkv bGVmdDsgdmVydGljYWwt RIkxA233OREnvQiqFhBg qFg3D7WyUfw3FHTt dUpqRA8wgQGyFHtoDw3e eUzshFwbYI0yAJPimaio x183GjHrr3gcTYJfcDIb HSetUWY3B20dw9F8 ZVZqUEBjBUR9wFE2eK5u bGlnbjogbGVmdDsgdmVy bXgbSHhoHXxjV044DTRf cDsnPlBhdGllbnQg WRujWQk4W3QbVzyqkNS+ ZP35VQRlAX68vIUepWNy s3jeqMf9NjIuHXUuVWO4 bGmuHIxti0YkYREp A85lhZUyt0D4ZIBesDgn aAImHpDkxFB1pV1wISae ytoaf9ltpiheIlcjr3ec pb37qZ51O58jAEoa ZHRoPSIzMCUiIHZhbGln qs3hwG9mZg1+PGNvbCB3 bBJ0cM0rRTDwVyA1AYuu Z937JdKqlBNbGchr h9lgr1ginQm4LlR2PJCs xqKyvPchZCL0e8EdAo72 N20tNEqhRUKyTUZsYQIg RGBosMivfo6jfB8d Ii8+CURwwKO2gWB6eD5h EsLeCpW9FUtlL353JkJv gHVqBcqkU75nV0EotMQ+ IBXdBto7PTQahZob WW5bvQLbRTjdUw3gQJO2 GpXbAhVdMPltQ0PcYVMj dqtvawtymJG8FNYlCFYu zH25My0bxGkoPCVe sTRUaB9wuecmm3rjjnaq LtJaNLQdTGk4SIj4FYBq eQqoTwSpMIV5FgZ0XWH0 bRUdjB5peDttsozl gP4wL9SfBZVudbmoIl57 wY9eZgNuJzJ2BZhuPwq+ QlJPRUNLRUwsIFNJRVJS EQLCNX44HB67dYAz e3T4yXX3E2SlZPGzltes zlthnOR2UBOrUQUulZ61 mPErKJwsIh2du9H1d107 RRBiUMXgeK43Jg1e sXvlNNQqrCOQpM9kqpns l5uqegmeNtFlWTCsNZd5 ROw1QXOptOfoXmEnMWO7 YrR4TKT3qJKeiH5v uZifqfjsqA8qZps+MTAv XbjcQWt7SHdyhZB+PHRk QVN9wSceTTvbKYVvgG2h WWOmD5t9QrXyVxF7 NDejZ9TeCYHtfcsiEf69 iN8kUwKsYaU3DMglG2Bz pqZ2EBIjsHXqLPpaBHO3 V73le7N1KPJzWTBi OXR3zII6tJ8ljKnnxase bGVmdDsgdmVydGljYWwt DPijZ069GKXfyOcrEaN5 OTocTTUoRY41BE20 nYMxt2Z1xYT7B4MzKWXn pmynkfevvEU9IFNqLFRw eV70gDXyLOuwWg0hf5J7 g355ACSwRLXtvN77 Ll2wnJkpJMXaiYGEaB3l jqokw0wzfraxIbUcYUAp ULc4TUp7YHCyeNqoOiOs MQZ7TfN8UCU4nMIb fO8rxHecvdbbkS9rOdu+ LpUeCQhhIF79AR36mOYz y9P1hDR8J0VaXUNqwzgu fuibdYK6RNOzYYOz tH73vHYhINxnOo4oo9J8 v558APRlBQNbsB09Lj7h fElaCWSkvOINvW7kdvrb p2jorhwiLlKoGEAp EXk0TAb6DOMetQjaLcLm LHG7RmE0YHW8qWXbqY6e tTvajttlhZ4oYvd+T3V0 jJV2oKQbqRwkkMU+ AR49mn96X5BzWlniIwu9 CNGjNAR1aSX3dH4xRKUe KRxjn2J3gLP4Z6VdprQo zi2el0ybXFYnQBgw H53fkBNdd4M5KTDqpJW1 ELVljXziUrZrnX33Gtx+ ANNhgHmvz0IhLlahe9lo n6sqjQi8JaLpDOCo rxOcmChuNVV4r1AuVo39 C63fETlcXJKgDPPhRHXv ANLoiBdjaq8jqF6cBk9+ AWFvpFS3iNI4nA7w BaCeZoT7EDwhN592VcYt vRFmZyjpy3rtv4avwUn8 IjIwJSIgdmFsaWduPSJ0 q3VuGn20F7DkdMgc r9ZgRbz4zl24mESkm7D7 xQC8W9ZcFLRoraqjpPZe uZlhZN3pFMAjughkYWZn zE1rBBOtO6b7PsOi RmE2CLjtY5YnshY5YLCy uWAqFFGkqRTRsM2ofzsl j7qonbiiOxOiPSLrOCn4 QOk2HVOecLelGxMg HSX5HlZ6BJU8iXIohR4j iJzxiebymX8xIxt+UGh5 u8eoeKHnNH5emQC1RJ41 UK20uAOep4R3wVP6 C8AyRFQfhixueeryeWL5 UAMdKFZusF60Ar4doPoa Dl1iJKQlBJP3TTEfeSPm F6FpsL0gYkVcGPVu JAKoE4FunCGjGMbrC217 VQzxVbH0PXZxteDlD9Uz MIQfyFflJdW8q8K6Mz4U GS23KL40UF81hASm f8Y6oHO0J7JiNDZsskwh pmbcjOK5OSAvJCOykC92 Qe6hpDdhLn6kZYRjXIT1 JMPsfFIeW0AzsG8l QjLuHOFjXGHcL4YzrZIq NNgeL127XSspWbB9TAIk uqZiF9YhVAKmcMaaQsU0 j3A8Pv8APm08NM89 PM69iDMqo9K7yPF9R1Pr URIajphnrlbkpWN2UPWu JUXrwL94Ct2jxEizYy4q LWKfQWO8IHWnhFGn N3FejL9wSlShACQpELYz I5MhgZUnERtyZ940CZhc RoU9GHZqbhNhN5TvHVKp sZweTuD5j6V8Ai8H XPfrssu6R8XhDrslgZF+ SH42CNZrVV28hTLdzUQk f6hgxKr8SzErGHEtQIL2 pFzkXEltw6RwUYEs F76jmWVhs4V4Z (more content not included)... Normal [facility] CHEMISTRYOrdered By: SYSTEM SYSTEM on 09-07-2023 Free T4 [Mass/Vol] 0.92 ng/dL Normal 0.58 - 1.64 ng/dL Remisol Chem TSH Qn 3.37 m[IU]/L Normal 0.34 - 5.60 mcIU/mL Remisol Chem Consent for Treatmenton 08-19 Consent for Treatment [id number] #1.00TIFF Normal [facility] Free T4on 09-07-2023 Free T4 [Mass/Vol] 0.92 ng/dL Normal 0.58-1.64 [facility] Comment on above: Performed By: #### 2 [id number] #### [facility] [address] [place] [address] TSHon 09-07-2023 TSH Qn 3.37 m[IU]/L Normal 0.34-5.60 [facility] Comment on above: Performed By: #### 2 [id number] #### [facility] [address] [place] [address] Ambulatory Visit Summaryon 0 08-08-2023 Ambulatory Visit [...] Normal [facility] Family Medicine Office/Clini c Noteon [...] hemorrhoids) Resolved, no additional complaints. saw [facility] for screening colonoscopy/diagnost ic colonoscopy due to [...] with voice recognition artificial intelligence software, specifically [employer], [employer] and or [employer]. Substitutions may have occurred due to the [...] Alcohol Curren (more content not included)... Normal [facility] Comment on above: Result Comment: Elec [...] Follow these instructions at home: ? Take jahr-wkw-oijrcks and prescription medicines only as told by [...] provider. Document Revised: 03/09/2022 Document Reviewed: 03/09/2022 [employer] Patient Education ? 2022 [employer]. Gastroenterology Hemorrhoids Hemorrhoids are swollen veins in and around the rectum or anus. There are two types of hemorrhoids: ? Internal hemorrhoids. These occur in the veins that are just inside the rectum. They may poke through to the outside and become irritated and painful. ? External hemorrhoids. These occur in the veins that are (more content not included)... Normal [facility] PAP [id number] 05-20-2023 C. trachomatis rRNA FRANSISCO+probe Ql (Cvx) Negative Invalid Interpretation Code Negative [facility] Comment on above: Performed By: #### 1 [id number] ####[facility] [address] [place] [address] Cytology report Cyto stain Doc (Cvx/Vag) Note Invalid Interpretation Code [facility] Comment on above: Result Comment: TEST S RESULT FLAG UNITS REF RANGE LAB Clinician Provided Cytology Information Source.............Cervix No. of containers..01 ThinPrep Vial DIAGNOSIS: 01 NEGATIVE FOR INTRAEPITHELIAL LESION OR MALIGNANCY. Specimen adequacy: 01 Satisfactory for evaluation. Endocervical and/or squamous metaplastic cells (endocervical component) are present. Performed by: 01 Erum Mckenzie, Film Maker ([facility]) . 01 Note: Note 01 The [...] <-Panic Low,>-Panic High,A-Abnormal,AA-Critical Abnormal Performed at: [address] [address] Sugey Torres MD, Performed By: #### 1 [id number] ####[facility] [place] [address] HPV 16+18+31+33+35+39+45 +51+52+56+58+59+66+6 8 DNA Probe+sig amp Ql (Cvx) Negative Invalid Interpretation Code Negative [facility] Comment on above: Result Comment: This nucleic acid amplification test detects fourteen high-risk HPV types (16,18,31,33,35,39,45,51,52,56,58,59,66,68) without differentiation. Performed By: #### 1 [id number] ####[facility] [address] [place] [address] N. gonorrhoeae rRNA FRANSISCO+probe Ql (Cvx) Negative Invalid Interpretation Code Negative [facility] Comment on above: Performed By: #### 1 [id number] ####[facility] [address] [place] [address] T. vaginalis rRNA FRANSISCO+probe Ql (Unsp spec) Negative Invalid Interpretation Code Negative [facility] Comment on above: Result Comment: Perf ormed at: [facility] [address] [place], [place] [id number] MD Brian Mayes Performed at: =G [facility] [address] [place], [place] [id number] MD Brian Mayes Performed By: #### 1 [id number] ####[facility] [address] [place] [address] Family Medicine Office/Clini c Noteon 05-16-2023 Family [...] exam was performed without the assistance of biomedical analytical scientist as witness Pelvic Exam: Vulva: normal appearance, [...] up every 3-5 years based on results 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 Normal [facility] Comment on above: Result Comment: Elec tronically Signed By: Ya Wang\.irvin\Date and Time Signed: 05/16/23 15:38 EST PAP [id number] 05-16-2023 Gynecological Body Site CERVIX Normal [facility] Comment on above: Performed By: #### 1 [id number] ####[facility] [address] [place] [address] Patient Educationon 05-16-19 Patient Education Obstetrics and [...] including vitamins, herbs, eye drops, creams, and ooks-uhv-dfvnrlg medicines. ? Any bleeding problems you have. [...] provider. Document Revised: 06/05/2021 Document Reviewed: 06/05/2021 [employer] Patient Education ? 2022 [employer] Oncology Cancer Screening for Women A [...] How i (more content not included)... Normal [facility] Consent for Treatmenton Consent for Treatment [id number] #1.00TIFF Normal [facility] UA With Cult Reflexon 2023 Bilirubin Ql (U) Negative Normal Negative [facility] Comment on above: Performed By: #### 1 [id number] ####[facility] [address] [place] [address] Clarity (U) CLEAR Normal Clear [facility] Comment on above: Performed By: #### 1 [id number] ####[address] [address] Color (U) YELLOW Normal Yellow [facility] Comment on above: Performed By: #### 1 [id number] ####[address] [address] Epithelial cells.squamous LM.HPF (Urine sed) [#/Area] 0-2 Normal 0-2 [facility] Comment on above: Performed By: #### 1 [id number] ####[facility] [address] [place] [address] Glucose Test strip (U) [Mass/Vol] Negative Normal Negative [facility] Comment on above: Performed By: #### 1 [id number] ####[facility] [address] [place] [address] Hemoglobin Ql (U) Negative Normal Negative [facility] Comment on above: Performed By: #### 1 [id number] ####[facility] [address] [place] [address] Ketones (U) [Mass/Vol] Negative Normal Negative [facility] Comment on above: Performed By: #### 1 [id number] ####[facility] [address] [place] [address] [place].plasma/Lithi um.RBC (Bld) [Mass ratio] 0-3 Normal 0-3 [facility] Comment on above: Performed By: #### 1 [id number] ####[place] [place] [address] Nitrite Ql (U) Negative Normal Negative [facility] Comment on above: Performed By: #### 1 [id number] ####[address] [address] pH (U) 6.0 [pH] Invalid Interpretation Code 5.0-9.0 [facility] Comment on above: Performed By: #### 1 [id number] ####[address] [address] Protein (U) [Mass/Vol] Negative Normal Negative [facility] Comment on above: Performed By: #### 1 [id number] ####[address] [address] Specific gravity (U) [Rel density] >=1.030 Invalid Interpretation Code 1.005-1.030 [facility] Comment on above: Performed By: #### 1 [id number] ####[address] [address] Type of Urine collection method Clean Catch Normal [facility] Comment on above: Performed By: #### 1 [id number] ####[address] [address] Urobilinogen Qn (U) 0.2 {Mehdi'U}/dL Normal 0.0-1.0 [facility] Comment on above: Performed By: #### 1 [id number] ####[address] [address] WBC Auto Ql (U) Negative Normal Negative [facility] Comment on above: Performed By: #### 1 [id number] ####[address] [address] WBC LM.HPF (Urine sed) [#/Area] 0-5 Normal 0-5 [facility] Comment on above: Performed By: #### 1 [id number] ####[address] [address] URINALYSISOrdered By: Alphonso Wang on 03-24-2023 Bilirubin [...] AM) Normal Negative [facility] UA Auto SS [place].plasma/Lithi um.RBC (Bld) [Mass ratio] 0-3 /HPF Normal [...] [facility] UA Auto SS Urobilinogen Qn (U) 0.4078799 {Mehdi'U}/dL Normal 0.0 - 1.0 EU/dL [facility] UA Auto SS WBC Auto Ql (U) Negative (03/24/23 11:15 AM) Normal Negative [facility] UA Auto SS WBC LM.HPF (Urine sed) [#/Area] 0-5 /HPF Normal 0-5/HPF [facility] UA Auto SS T3 Freeon 03-23-2023 Free T3 [Mass/Vol] 2.9 pg/mL Invalid Interpretation Code 2.0-4.4 [facility] Comment on above: Result Comment: Perf ormed at: [facility] [address] [id number] PhD Haider Barraza Performed By: #### 2 [id number], [id number] ####[facility] [place] [address] US Retroperitoneal Completeo n 03-23-2023 US Retroperitoneal [...] MD Transcribed by: RAZIA Technologist: HW Normal [facility] CHEMISTRYOrdered By: SYSTEM SYSTEM on 03-22-2023 Free T4 [Mass/Vol] 1.10 ng/dL Normal 0.58 - 1.64 ng/dL Remisol Chem TSH Qn 0.90 m[IU]/L Normal 0.34 - 5.60 mcIU/mL Remisol Chem Consent for Treatmenton Consent for Treatment [id number] #1.00TIFF Normal [facility] Free T4on 03-22-2023 Free T4 [Mass/Vol] 1.10 ng/dL Normal 0.58-1.64 [facility] Comment on above: Performed By: #### 2 [id number], [id number], [id number] ####[facility] [address] [place] [address] TSHon 03-22-2023 TSH Qn 0.90 m[IU]/L Normal 0.34-5.60 [facility] Comment on above: Performed By: #### 2 [id number], [id number], [id number] ####[facility] [address] [place] [address] C Urineon 03-11-2023 Bacteria identified Cx Nom [...] Locations R1: This test was performed at: [facility], [address] [place] [address], [address] , , [facility] Comment on above: Performed By: #### 2 [id number] ####[facility] [address] [place] [address] Family Medicine Office/Clini c Noteon 03-11-2023 Family [...] due to her gallbladder. She saw a trimmer press clippings in 11/2022. She is able to schedule [...] shows: Negat (more content not included)... Normal [facility] Comment on above: Result Comment: Elec [...] Urnls Dip Stick Auto w/o Microscopy POC [id number] Your Care Team Attending Physician - Ya [...] 10:00 AM EDT With: Ya Wang Where: [facility] Normal Recurrent UTI (urinary tract infection), pp_set_radiology_ subspecialty, [facility]\.br\ Medications\.br\ What How Much When Why Instructions\.br\ New cephalexin (Keflex 500 mg Cap) 1 Capsules By Mouth 4 times a day Feeling of incomplete bladder emptying Recurrent UTI (urinary tract infection) Duration: 7 Days Pickup at [facility]\.br\ New phenazopyridine (Pyridium 200 mg Tab) 1 Tablets By Mouth 3 times a day Feeling of incomplete bladder emptying Recurrent UTI (urinary tract infection) Duration: 3 Days Pickup at [facility]\.br\ Unchanged levothyroxine (Synthroid 112 mcg Tab) [...] instructions Prior to colonoscopy. \.br\ Pharmacy Information\.br\ [facility]: [address] [place], [place] [id number] [phone]\.br\ Test Results\.br\ Urnls Dip Stick Auto w/o Microscopy POC 81071 (03/09/2023)\.br\ Bilirubin Urine Dipstick - Negative\.br\ Blood Urine Dipstick - Trace-intact\.br\ Glucose Urine Dipstick - Negative\.br\ Ketones Urine Dipstick - Negative\.br\ Leukocytes Urine Dipstick - Trace\.br\ Nitrite Urine Dipstick - Negative\.br\ Protein Urine Dipstick - Negative\.br\ Specific Morris Urine Dipstick - 1.020\.br\ Urine Appearance Urine [...] including vitamins, herbs, eye drops, creams, and xdyh-mwb-vrvnwep medicines.\.br\ ? \.br\ Whether you are or [...] nerves are communicating with your muscles.\.br\ What [facility] Patient Educationon 03-09-20 Patient Education Endocrinology [...] Follow these instructions at home: ? Take jmss-qxd-qihcqqi and prescription medicines only as told by [...] provider. Document Revised: 03/09/2022 Document Reviewed: 03/09/2022 [employer] Patient Education ? 2022 [employer]. Obstetrics and Gynecology Urinary Tract Infection, Adult A urinary tract infection (UTI) is an infection of any part of the urinary tract. The urinary tract includes the kidneys, ureters, bladder, and urethra. These organs make, store, and get rid of urine in the body. An upper UTI affects the ureters and kidneys. A lower UTI affects the bl (more content not included)... [facility] Physician Referralon 023 Physician Referral [id number] [facility] Provider Letteron 03-02-2023 Provider Letter March 02, 2023 YANAHERNESTO CHURCH [address] [place] [id number] : [address] Clay Waters is know on your insurance & we are able to schedule your EGD & Colonoscopy. Please call us at [phone] at your earlieast convenience to schedule your procedure. Thank you for your prompt attention to this matter. Sincerely, [facility] Reminderson 03-02-2023 Reminders - From: Erum Gold To: [facility] - Reminders/Recalls; Sent: 11/30/2022 12:34:03 EDT Show up: 11/30/2022 12:34:00 EDT Subject: Ambulatory Reminder [employer] Reminder/Recall Call pt and scheduled EGD and Colonoscopy with Dr. Williamson once [employer] is approved. - From: Rusty Alfred ([facility] - Reminders/Recalls) To: Yue Perez; Sent: 12/28/2022 12:15:30 EDT ! Show up: 12/28/2022 12:15:00 EDT I called patient and left message for her to call the office back to schedule her procedure. Patient came in today and had an insurance change. Her [employer] will be inactive as of January 18 and she will have [facility]. Patient is aware of wait time for insurance to get credentialed. New insurance added to chart and insurance card was scanned in. I sent letter to patient to call office to schedule [facility] C Urineon 02-23-2023 Bacteria identified Cx Nom (U) Microbiology PROCEDURE: Urine Culture [R1] SOURCE: U CleanCatch BODY SITE: COLLECTED DATE/TIME: 02/21/2023 13:14 EST RECEIVED DATE/TIME: 02/21/2023 16:00 EST START DATE/TIME: 02/21/2023 16:00 EST FREE TEXT SOURCE: Norberto BARTLETT, Ya BARTLETT, Ya L FINAL REPORTS Final Report [] Verified [...] Locations R1: This test was performed at: [facility], [address] [place] [address], [id number]- , [place], Normal [facility] Comment on above: Performed By: #### 2 [id number] ####[facility] [address] [place] [id number] Family Medicine Office/Clini c Noteon 02-21-2023 Family [...] color was orange in appearance due to bwsw-hlh-nfxhliq meds she was taking, normal urobilinogen pH [...] day(s), # 10 cap(s), Refills(s) 0, Pharmacy: [facility], 166, cm, 02/21/23 13:06:00 EST, Height/Length Dosing, 58.6, kg, 02/21/23 13:06:00 EST, Weight Dosing phenazopyridine, 200 mg = 1 tab(s), Oral, TID, X 3 day(s), # 9 tab(s), Refills(s) 0, Pharmacy: [facility], 166, cm, 02/21/23 13:06:00 EST, Height/Length Dosing, 58.6, kg, 02/21/23 13:06:00 EST, Weight Dosing Urine Culture Urnls Dip Stick Auto w/o Microscopy POC 85196 2. Acute cystitis (N30.00: Acute cystitis without hematuria) #1 3. Constipation in female (K59.00: Constipation, unspecified) improving. occasional Colace OTC and Miralax 4. Hemorrhoids (K64.9: Unspecified hemorrhoids) improving, stable 5. Hypothyroidism (E03.9: Hypothyroidism, unspecified) Chronic Stable with 112 mcg daily of Synthroid _ control Weight is stable Asymptomatic- noteable tachycardia today Du (more content not included)... Normal [facility] Comment on above: Result Comment: Elec tronically Signed By: Ya Wang\.irvin\Date and Time Signed: 02/21/23 13:39 EST Patient [...] these instructions at home: Medicines ? Take ymzv-bpr-pyktmfh and prescription medicines only as told by [...] provider. Document Revised: 10/17/2020 Document Reviewed: 10/17/2020 [employer] Patient Education ? 2022 [employer]. [facility] Ambulatory Visit Summaryon 0 11-30-2022 Ambulatory Visit Summary YANA CHURCH :2000 Visit Date:11/30/2022 Ambulatory Visit Instructions Your Diagnosis Rectal itching Rectal pressure Weight loss Family history of colon cancer Your Care Team Attending Physician - Agueda Gray CNP Primary Care Physician - Norberto BARTLETT, Ya Alexandre This Is Your Medications List polyethylene glycol [...] 1:00 PM EST With: Ya Wang Where: [facility] Primary Care [facility] Gastroenterology Office/Clin ic Noteon 11-30-2022 [...] Refill(s) 0, Prior to colonoscopy., [id number], 166, cm, 11/30/22 12:12:00 EDT, Height/Length Dosing, [...] Hypothyroidism Left (more content not included)... Normal [facility] Comment on above: Result Comment: Misha sanchezally Signed By: Agueda Gray CNP.irvin\Date and Time Signed: 11/30/22 12:32 EDT Patient [...] Bulgur wheat. Millet. Quinoa. Bran muffins. Popcorn. [place] wafer crackers. Meats and other proteins Margate beans, kidney beans, and díaz beans. Soybeans. [...] Cream cheese. Sour cream. Fats and oils [place]. Beverages Soft drinks. Other foods Cakes and [...] provider. Document Revised: (more content not included)... [facility] Pre-Certification Formon Pre-Certification Form [id number] 1#1.00CD:127 [facility] Family Medicine Office/Clini c Noteon 11-11-2022 Family [...] visit we encourage proper diet and exercise abnx-hvb-mirroih MiraLAX or Colace with Preparation H zyyj-tlc-ztxytri, bleeding has stopped, blood noted on toilet [...] Rectal exam was performed, I did offer lab aide but patient declined, external anus is normal [...] length of time on toilet, sitz bath's, hnzn-dzo-nwqhplx medications and suppositories and creams Hydrocortisone lidocaine with applicator gel ordered today to use twice daily Referral for GI referral placed today Ordered: hydrocortisone-lidoc letty topical, 1 carmen, Rectal, BID, 60 EA, Refill(s) 1, [facility], 166, cm, 11/11/22 9:28:00 EDT, Height/Length Dosing, 59.4, kg, 11/11/22 9:28:00 EDT, Weight Dosing [facility] Internal Ambulatory Referral 2. Hypothyroidism (E03.9: Hypothyroidism, [...] azelastine ophthalmic, (more content not included)... Normal [facility] Comment on above: Result Comment: Misha younger Signed By: Ya Wang\.irvin\Date and Time Signed: [...] serving. ? Talk with a diet and nutrition manager (dietitian) if you have questions about specific [...] Bulgur wheat. Millet. Quinoa. Bran muffins. Popcorn. [place] wafer crackers. Meats and other proteins Margate, kidney, and díaz beans. Soybeans. Split peas. [...] Cream cheese. Sour cream. Fats and oils [place]. Beverages Soft drinks. Other foods Cakes and [...] 03/07/2006 Document Revised: 01/09/2018 Document Reviewed: 01/09/2018 [employer] Patient Education ? 2019 [employer]. Gastroenterology H (more content not included)... Normal [facility] Ambulatory Visit Summaryon 0 10-08-2022 Ambulatory [...] Following Appointments Follow Up with Ya Wang, [facility] When: Comments: 6 mo f/u for hypothyroid, weight loss Where: [address] [facility], [address] [address] Business (1) You Need to Complete the Following Anti-thyroid Abys, Blood, Routine collect, 10/08/22, Order for future visit, Lab Collect, Weight loss Invalid Interpretation Code Hypothyroidism [facility] Auto Diffon 10-08-2022 Basophils/100 WBC (Bld) 1.1 % Normal 0.0-2.0 [facility] Comment on above: Order Comment: Order Added by Discern Expert. Performed By: #### 2 733233, 69557253, 69130104, 2477683, 2218753 ####[facility] [address] [place] [address] Basophils/Leukocytes Auto (Bld) [Pure # fraction] 0.1 E9/L Normal 0.0-0.2 [facility] Comment on above: Order Comment: Order Added by Discern Expert. Performed By: #### 2 517254, 12521038, 43969381, 4062993, 0554714 ####[address] [place] [address] Eosinophils/100 WBC (Bld) 1.2 % Normal 0.0-8.0 [facility] Comment on above: Order Comment: Order Added by Discern Expert. Performed By: #### 2 890986, 72785663, 47715261, 3322239, 1732615 ####[address] [place] [address] Eosinophils/Leukocyt es Auto (Bld) [Pure # fraction] 0.1 E9/L Normal 0.0-0.5 [facility] Comment on above: Order Comment: Order Added by Discern Expert. Performed By: #### 2 794778, 05870854, 82192572, 9126598, 8753921 ####[address] [place] [address] Lymphocytes/100 WBC (Bld) 41.0 % Normal 14.0-50.0 [facility] Comment on above: Order Comment: Order Added by Discern Expert. Performed By: #### 2 288051, 11730008, 24757963, 6279722, 0990953 ####[facility] [address] [place] [address] Lymphocytes/Leukocyt es Auto (Bld) [Pure # fraction] 2.3 E9/L Normal 1.0-4.0 [facility] Comment on above: Order Comment: Order Added by Discern Expert. Performed By: #### 2 599777, 42997074, 12650036, 7816293, 6895681 ####[facility] [address] [place] [address] Monocytes/100 WBC (Bld) 5.8 % Normal 4.0-14.0 [facility] Comment on above: Order Comment: Order Added by Discern Expert. Performed By: #### 2 084597, 05334044, 42090294, 5286029, 0188333 ####[address] [place] [address] Monocytes/Leukocytes Auto (Bld) [Pure # fraction] 0.3 E9/L Normal 0.2-1.0 [facility] Comment on above: Order Comment: Order Added by Discern Expert. Performed By: #### 2 150493, 62147398, 50278377, 7979181, 6203569 ####[address] [address] Neutrophils/100 WBC (Bld) 50.9 % Normal 36.0-75.0 [facility] Comment on above: Order Comment: Order Added by Discern Expert. Performed By: #### 2 725207, 74840652, 35987449, 9901972, 1978115 ####[address] [place] [address] Neutrophils/Leukocyt es Auto (Bld) [Pure # fraction] 2.8 E9/L Normal 2.0-7.5 [facility] Comment on above: Order Comment: Order Added by Discern Expert. Performed By: #### 2 620126, 18207770, 74858895, 2838059, 5946678 ####[address] [place] [address] CBC w/ Auto Diffon 3 Erythrocyte distribution width (RBC) [Ratio] 12.6 % Normal 10.9-14.2 [facility] Comment on above: Performed By: #### 2 796681, 45619282, 39024698, 4072290, 9544775 ####[address] [place] [address] Hematocrit (Bld) [Volume fraction] 40.4 % Normal 34.0-46.0 [facility] Comment on above: Performed By: #### 2 275600, 89116157, 89321196, 0953506, 8641994 ####[place] [address] Hemoglobin (Bld) [Mass/Vol] 14.1 g/dL Normal 12.0-16.0 [facility] Comment on above: Performed By: #### 2 066018, 22220570, 86779360, 5348476, 3666881 ####[place] [address] MCH (RBC) [Entitic mass] 32.1 pg Normal 27.0-34.0 [facility] Comment on above: Performed By: #### 2 224336, 13888544, 69801695, 7037442, 9737468 ####[address] [address] MCHC (RBC) [Mass/Vol] 34.8 g/dL Normal 31.4-36.0 [facility] Comment on above: Performed By: #### 2 499162, 23414310, 36954319, 4847700, 2855479 ####[address] [address] MCV (RBC) [Entitic vol] 92.1 fL Normal 80.0-100.0 [facility] Comment on above: Performed By: #### 2 998665, 60727010, 58063900, 7089159, 6201047 ####[address] [place] [address] Platelet mean volume (Bld) [Entitic vol] 9.1 fL Normal 6.4-10.8 [facility] Comment on above: Performed By: #### 2 847992, 48931558, 72970556, 7619384, 5854284 ####[address] [place] [address] Platelets (Bld) [#/Vol] 238.0 E9/L Normal 150.0-500.0 [facility] Comment on above: Performed By: #### 2 990209, 20142184, 10152078, 8564210, 6689114 ####[address] [address] RBC (Bld) [#/Vol] 4.4 E12/L Normal 4.3-5.9 [facility] Comment on above: Performed By: #### 2 201022, 10068269, 17440260, 7394246, 2262964 ####[address] [address] WBC corrected for nucl RBC Auto (Bld) [#/Vol] 5.6 E9/L Normal 4.0-11.0 [facility] Comment on above: Performed By: #### 2 401035, 23098292, 61106471, 7567451, 7211742 ####[address] [place] [address] CMPon 10-08-2022 Albumin [Mass/Vol] 4.7 g/dL Normal 3.3-5.0 [facility] Comment on above: Performed By: #### 2 813209, 44969616, 85788467, 0595015, 0748561 ####[address] [place] [address] Albumin/Globulin (S) [Mass conc ratio] 1.5 Normal 1.1-2.2 [facility] Comment on above: Performed By: #### 2 236534, 46958831, 83339229, 0336907, 1316986 ####[address] [place] [address] ALP [Catalytic activity/Vol] 42 Int._Unit/L Normal 21-98 [facility] Comment on above: Performed By: #### 2 493485, 36898990, 77956286, 4635053, 8318534 ####[facility] [address] [place] [address] ALT No additional P-5'-P [Catalytic activity/Vol] 15 Int._Unit/L Normal 6-46 [facility] Comment on above: Performed By: #### 2 508006, 24006322, 97974235, 7685731, 2154338 ####[facility] [address] [place] [address] Anion gap [Moles/Vol] 13 mmol/L Normal 6-16 [facility] Comment on above: Performed By: #### 2 506968, 46280185, 60319652, 5824551, 8594502 ####[facility] [address] [place] [address] AST [Catalytic activity/Vol] 22 Int._Unit/L Normal 5-43 [facility] Comment on above: Performed By: #### 2 310451, 75655913, 38476953, 4117637, 5603131 ####[facility] [address] [place] [address] Bilirubin [Mass/Vol] 0.5 mg/dL Normal 0.0-1.1 [facility] Comment on above: Performed By: #### 2 953373, 78554988, 14437195, 8523131, 1456176 ####[facility] [address] [place] [address] Calcium [Mass/Vol] 9.4 mg/dL Normal 8.9-11.1 [facility] Comment on above: Performed By: #### 2 305615, 77761696, 72038949, 9641828, 9893079 ####[facility] [address] [place] [address] Chloride [Moles/Vol] 107 mmol/L Normal 101-111 [facility] Comment on above: Performed By: #### 2 598403, 23730328, 97241612, 5099818, 0720391 ####[facility] [address] [place] [address] CO2 [Moles/Vol] 24 mmol/L Normal 21-31 [facility] Comment on above: Performed By: #### 2 055639, 36706477, 91130455, 8056440, 5791783 ####[facility] [address] [place] [address] Creatinine [Mass/Vol] 0.7 mg/dL Normal 0.5-1.3 [facility] Comment on above: Performed By: #### 2 520850, 14628937, 46366397, 7592775, 3685391 ####[facility] [address] [place] [address] Globulin (S) [Mass/Vol] 3.2 g/dL Normal 1.4-4.0 [facility] Comment on above: Performed By: #### 2 054060, 78327751, 27717998, 9298726, 1487675 ####[facility] [address] [place] [address] Glucose [Mass/Vol] 105 mg/dL Normal 55-199 [facility] Comment on above: Result Comment: If t his glucose result represents a fasting glucose, interpretation should refer to the following reference range: 55-99 mg/dL Performed By: #### 2 504002, 77105150, 55197868, 3528012, 8728677 ####[facility] [address] [place] [address] Potassium [Moles/Vol] 3.9 mmol/L Normal 3.5-5.3 [facility] Comment on above: Performed By: #### 2 023143, 10482653, 73578601, 4370707, 6759538 ####[facility] [address] [place] [address] Protein [Mass/Vol] 7.9 g/dL High 6.0-7.8 [facility] Comment on above: Performed By: #### 2 847141, 30136158, 53039497, 8971509, 2684498 ####[facility] [address] [place] [address] Sodium [Moles/Vol] 140 mmol/L Normal 135-145 [facility] Comment on above: Performed By: #### 2 716355, 42494251, 67483199, 1150345, 2230818 ####[facility] [address] [place] [address] Urea nitrogen [Mass/Vol] 17 mg/dL Normal 5-21 [facility] Comment on above: Performed By: #### 2 023777, 40016350, 83950070, 0461449, 0152363 ####[facility] [address] [place] [address] Urea nitrogen/Creatinine [Mass ratio] 24 No Units High 10-20 [facility] Comment on above: Performed By: #### 2 398851, 99837876, 36199664, 6414723, 4043880 ####[facility] [address] [place] [address] Consent for Treatmenton 09-19 Consent for Treatment [id number] #1.00CD:127 Normal [facility] Medicine Office/Clini c Noteon 10-08-2022 Family [...] Dr Marshall scheduled for nov 2022 Specialists: Twisting Frame Changer: Bird Álvarez in [place]- contacts most of the time, Dentist: ROSARIO - no issues- Dr Nila MARSHALL- [facility] [place] Review of Systems PHQ Score Initial Depression [...] Pap testing 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 Discussed self breast exams and other health [...] and exercise increasing. Patient encouraged to use uzrx-jdq-hxjmyyx MiraLAX or Colace, encouraged Preparation H ixxe-xwr-miqyzva topical treatments if needed. \ Follow-up only if needed. Patient only having minimal complaints 3. Constipation in female (K59.00: Constipation, unspecified) see #3 4. BMI 20.0-20.9, ad (more content not included)... Normal [facility] Comment on above: Result Comment: Elec [...] instructions at home: General instructions ? Take spfv-yqj-csxwasz and prescription medicines only as told by your health care provider. ? Monitor your blood glucose as told by your health care provider. ? If you drink alcohol: ? Limit how much you have to: ? 0?1 dr (more content not included)... Normal [facility] TSH With T4fr Reflexon 10-08 TSH Qn 0.58 m[IU]/L Normal 0.34-5.60 [facility] Comment on above: Performed By: #### 2 293845, 99504518, 72965010, 9185101, 6798015 ####[facility] [address] [place] [address] eGFRon 10-08-2022 GFR/1.73 sq M.predicted among non-blacks MDRD (S/P/Bld) [Vol rate/Area] 124 mL/min/1.73 m2 Normal >=59 [facility] Comment on above: Order Comment: Order added by Discern Expert. Result Comment: String Cutter erlin kidney disease could be indicated at eGFR's of less than 60 mL/min/1.73m2. Kidney failure is indicated at less than 15 mL/min/1.73m2. Performed By: #### 2 220509, 09262432, 47398108, 0936260, 0806542 ####[facility] [address] [place] [address] PAP ACOG PANEL 2: 21 to 29on 10-23-2021 . . [facility] Comment on above: Performed By: #### C BC #### [facility] [address] [place] [address] Dr. Rima Charles Age Gdln ACOG Testing - [facility] Comment on above: Performed By: #### C BC #### [facility] [id number] Rima Charles DIAGNOSIS: Comment [facility] Comment on above: Result Comment: NEGA TIVE FOR INTRAEPITHELIAL LESION OR MALIGNANCY. THIS SPECIMEN WAS RESCREENED PART OF OUR JACQUARD FIXER PROGRAM. Performed By: #### C BC #### [facility] [id number] Rima Charles Methodology: Comment [facility] Comment on above: Result Comment: This liquid based ThinPrep(R) pap test was screened with the use of an image guided system. Performed By: #### C BC #### [facility] [address] [place] [address] Dr. Rima Charles Note: Comment Normal [facility] Comment on above: Result Comment: The Pap smear is a screening test designed to aid in the detection of premalignant and malignant conditions of the uterine cervix. It is not a diagnostic procedure and should not be used as the sole means of detecting cervical cancer. Both false-positive and false-negative reports do occur. . Performed By: #### C BC #### [facility] [address] [place] [address] Dr. Rima Charles Performed by: Comment Normal [facility] Comment on above: Result Comment: Prince Cagle, Film Maker (ASCP) Performed By: #### C BC #### [facility] [address] [place] [address] Dr. Rima Charles QC reviewed by: Comment Normal [facility] Comment on above: Result Comment: Amanda Morejon, Supervisory Film Maker (ASCP) Performed By: #### C BC #### [facility] [address] [place] [address] Dr. Rima Charles Reflex Criteria: Comment Normal [facility] Comment on above: Result Comment: The HPV DNA reflex criteria were not met with this specimen result therefore, no HPV testing was performed. . Performed By: #### C BC #### [facility] [address] [place] [address] Dr. Rima Charles Specimen adequacy: Comment Normal [facility] Comment on above: Result Comment: Sati sfactory for evaluation. Endocervical and/or squamous metaplastic cells (endocervical component) are present. Areas of partially obscuring blood are present. Performed By: #### C BC #### [facility] [address] [place] [address] Dr. Rima Charles FREE T4on 10-17-2021 Free T4 [Mass/Vol] 1.01 ng/dL Normal 0.76-1.46 [facility] Comment on above: Performed By: #### F T4 #### [facility] [address] [place] [address] Dr. Rima Charles TSHon 10-17-2021 TSH 4.997 uIU/mL Critically high 0.358-3.740 [facility] Comment on above: Performed By: #### T SH #### [facility] [address] [place] [address] Dr. Rima Charles VAGINITIS/VAGINOSIS DNA PROB Esteban 07-15-2021 Tamara species Negative Normal Negative [facility] Comment on above: Performed By: #### C BC #### [facility] [address] [place] [address] Dr. Rima Charles Gardnerella vaginalis Negative Normal Negative [facility] Comment on above: Performed By: #### C BC #### [facility] [address] [place] [address] Dr. Rima Charles Trichomonas vaginalis Negative Normal Negative [facility] Comment on above: Performed By: #### C BC #### [facility] [address] [place] [address] Dr. Rima Charles CHLAMYDIA/GONOCOCCUS FRANSISCO (SW AB/URINE/PAPon 05-09-2021 Chlamydia trachomatis, FRANSISCO Negative Normal Negative [facility] Comment on above: Performed By: #### C BC #### [facility] [address] [place] [address] Dr. Rima Charles Neisseria gonorrhoeae, FRANSISCO Negative Normal Negative [facility] Comment on above: Performed By: #### C BC #### [facility] [address] [place] [address] Dr. Rima Charles VAGINITIS/VAGINOSIS DNA PROB Esteban 05-08-2021 Tamara species Negative Normal Negative [facility] Comment on above: Performed By: #### V AGINT #### [facility] [address] [place] [address] Dr. Rima Charles Gardnerella vaginalis Negative Normal Negative [facility] Comment on above: Performed By: #### V AGINT #### [facility] [address] [address] [address] Rima Charles Trichomonas vaginalis Negative Normal Negative [facility] Comment on above: Performed By: #### V AGINT #### [facility] [address] [address] [address] Rima Charles TSHon 02-24-2021 TSH 4.494 uIU/mL Normal 0.470-4.680 [facility] Comment on above: Performed By: #### C BC #### [facility] [address] [address] [address] Rima Charles TSH RANGE SEE BELOW Normal [facility] Comment on above: Result Comment: <0.3 4 UIU/ml HYPERTHYROID 0.34-5.60 UIU/ml EUTHYROID >5.60 UIU/ml HYPOTHYROID Performed By: #### C BC #### [facility] [address] [place] [address] Dr. Rima Charles AFP MATERNAL FOR SPINA BIFID Aon 2021 AFP MoM 0.98 Normal [facility] Comment on above: Performed By: #### A FPMAT #### [facility] [address] [address] [address] Rima Charles AFP Value 36.3 ng/mL Normal [facility] Comment on above: Performed By: #### A FPMAT #### [facility] [address] [place] [address] Dr. Rima Charles AFP, Serum for Spina Bifida Report Normal [facility] Comment on above: Performed By: #### A FPMAT #### [facility] [address] [place] [address] Dr. Rima Charles Comment Comment Normal [facility] Comment on above: Result Comment: Kelly Moon, Ph.D., [facility] Director . References: Available Upon Request. . Multiples Of Median Cutoffs For AFP Elevations Murphy 2.5 Black 2.8 IDD 2.0 Twins 4.5 Abbreviation Definitions IDD - Insulin Dep Diabetes OSBR - Open Spina Bifida Risk . For further inquiries contact [facility] at [phone]. Performed By: #### A FPMAT #### [facility] [address] [address] [address] Rima Whitt Age Collection Date 16.0 weeks Normal [facility] Comment on above: Performed By: #### A FPMAT #### [facility] [address] [address] [address] Rima Charles Gestat, Age Based on LMP Normal [facility] Comment on above: Result Comment: Reca lculations are not recommended when gestational dating by LMP and ultrasound are within 10 days. Performed By: #### A FPMAT #### [facility] [address] [address] [address] Rima Charles Insulin Dep Diabetes No Normal [facility] Comment on above: Performed By: #### A FPMAT #### [facility] [address] [place] [address] Dr. Rima Charles Interpretation Comment Normal [facility] Comment on above: Result Comment: Inte rpretation: [...] Customer Services to discuss available options. The [employer] recommends amniocentesis be offered to women age 35 and older. Performed By: #### A FPMAT #### [facility] [address] [place] [address] Dr. Rima Charles [age] Normal [facility] [facility] Comment on above: Performed By: #### A FPMAT #### [facility] [address] [place] [address] Dr. Rima Charles Multiple Gestation No Normal [facility] Comment on above: Performed By: #### A FPMAT #### [facility] [address] [place] [address] Dr. Rima Charles [place] [address] Normal [facility] Comment on above: Performed By: #### A FPMAT #### [facility] [address] [place] [address] Dr. Rima Charles PDF . Normal [facility] Comment on above: Performed By: #### A FPMAT #### [facility] [address] [place] [address] Dr. Rima Charles Race Normal [facility] Comment on above: Performed By: #### A FPMAT #### [facility] [address] [place] [address] Dr. Rima Charles Test Results: Negative Normal [facility] Comment on above: Performed By: #### A FPMAT #### [facility] [address] [place] [address] Dr. Rima Charles HEP B SURFACE ANTIGEN SCREEN on 12-10-2020 HBsAg Screen Negative Normal Negative [facility] Comment on above: Performed By: #### H BSANS #### [facility] [address] [place] [address] Dr. Rima Charles HEPATITIS C ANTIBODYon 12-10 Hep C Virus Ab <0.1 Normal 0.0-0.9 [facility] Comment on above: Result Comment: Nega tive: < 0.8 Indeterminate: 0.8 - 0.9 Positive: > 0.9 . The CDC recommends that a positive HCV antibody result be followed up with a HCV Nucleic Acid Amplification test (160993). Performed By: #### H CV #### [facility] [address] [place] [address] Dr. Rima Charles HIV 1 AND 2 WITH REFLEXon HIV Screen 4th Generation wRfx Non-Reactive Normal Non Reactive [facility] Comment on above: Performed By: #### H IV12 #### [facility] [address] [place] [address] Dr. Rima Charles RPR QUANTon 12-10-2020 Rapid Plasma Reagin, Quant Non-Reactive Normal NonRea<1:1 [facility] Comment on above: Performed By: #### C BC #### [facility] [address] [place] [address] Dr. Rima Charles RUBELLA AB IGGon 12-10-2020 Rubella Antibodies, IgG 2.33 index Normal Immune >0.99 [facility] Comment on above: Result Comment: Non- immune <0.90 Equivocal 0.90 - 0.99 Immune >0.99 Performed By: #### R UBIGG #### [facility] [address] [place] [address] Dr. Rima Charles CBC AUTO DIFFon 12-09-2020 BASO # 0.0 103/ul Normal 0.0-0.1 [facility] Comment on above: Performed By: #### C BC #### [facility] [address] [place] [address] Dr. Rima Charles Basophils/100 WBC (Bld) 0.4 % Normal 0.2-2.0 [facility] Comment on above: Performed By: #### C BC #### [facility] [address] [place] [address] Dr. Rima Charles EO # 0.0 103/ul Normal 0.0-0.7 [facility] Comment on above: Performed By: #### C BC #### [facility] [address] [place] [address] Dr. Rima Charles Eosinophils/100 WBC (Bld) 0.6 % Critically low 0.9-7.0 [facility] Comment on above: Performed By: #### C BC #### [facility] [address] [place] [address] Dr. Rima Charles Erythrocyte distribution width (RBC) [Ratio] 12.0 % Normal 11.0-15.0 [facility] Comment on above: Performed By: #### C BC #### [facility] [address] [place] [address] Dr. Rima Charles Hematocrit (Bld) [Volume fraction] 37.5 % Normal 36.0-48.0 [facility] Comment on above: Performed By: #### C BC #### [facility] [address] [place] [address] Dr. Rima Charles Hemoglobin (Bld) [Mass/Vol] 13.2 g/dL Normal 12.0-16.0 [facility] Comment on above: Performed By: #### C BC #### [facility] [address] [place] [address] Dr. Rima Charles IG # 0.02 10e3/ul Normal 0.00-0.03 [facility] Comment on above: Performed By: #### C BC #### [facility] [address] [place] [address] Dr. Rima Charles IG % 0.3 % Normal 0.0-0.5 [facility] Comment on above: Performed By: #### C BC #### [facility] [address] [place] [address] Dr. Rima Charles LYMPH # 1.4 103/ul Normal 1.2-3.8 [facility] Comment on above: Performed By: #### C BC #### [facility] [address] [place] [address] Dr. Rima Charles Lymphocytes/100 WBC (Bld) 20.2 % Critically low 20.5-60.0 [facility] Comment on above: Performed By: #### C BC #### [facility] [address] [place] [address] Dr. Rima Charles MANUAL DIFF REQ NO Normal [facility] Comment on above: Performed By: #### C BC #### [facility] [address] [place] [address] Dr. Rima Charles MCH (RBC) [Entitic mass] 33.2 pg Normal 26.7-34.0 [facility] Comment on above: Performed By: #### C BC #### [facility] [address] [place] [address] Dr. Rima Charles MCHC (RBC) [Mass/Vol] 35.2 g/dL Normal 29.9-35.2 [facility] Comment on above: Performed By: #### C BC #### [facility] [address] [place] [address] Dr. Rima Charles MCV (RBC) [Entitic vol] 94.5 fL Normal 81.0-99.0 [facility] Comment on above: Performed By: #### C BC #### [facility] [address] [place] [address] Dr. Rima Charles MONO # 0.4 103/ul Normal 0.3-0.8 [facility] Comment on above: Performed By: #### C BC #### [facility] [address] [address] [address] Rima Charles Monocytes/100 WBC (Bld) 6.1 % Normal 1.7-12.0 [facility] Comment on above: Performed By: #### C BC #### [facility] [address] [place] [address] Dr. Rima Charles NEUT # 5.1 103/ul Normal 1.4-6.5 [facility] Comment on above: Performed By: #### C BC #### [facility] [address] [place] [address] Dr. Rima Charles Neutrophils/100 WBC (Bld) 72.4 % Normal 43.0-75.0 [facility] Comment on above: Performed By: #### C BC #### [facility] [address] [place] [address] Dr. Rima Charles Platelet mean volume (Bld) [Entitic vol] 11.2 fL Normal 9.5-13.5 [facility] Comment on above: Performed By: #### C BC #### [facility] [address] [place] [address] Dr. Rima Charles PLT 221 103/ul Normal 150-450 [facility] Comment on above: Performed By: #### C BC #### [facility] [address] [place] [address] Dr. Rima Charles RBC 3.97 106/ul Critically low 4.20-5.40 [facility] Comment on above: Performed By: #### C BC #### [facility] [address] [place] [address] Dr. Rima Charles WBC 7.1 103/ul Normal 4.0-11.0 [facility] Comment on above: Performed By: #### C BC #### [facility] [address] [address] [address] Rima Charles CULTURE URINEon 12-09-2020 CULTURE URINE Culture Observations: No growth Normal [facility] Comment on above: Performed By: #### C BC #### [facility] [address] [address] [address] Rima Charles GLYCOHEMOGLOBIN A1Con 2020 ADA RECOMMENDATION ADA THERAPEUTIC TARGET 6.0 - 7.0 ACTION SUGGESTED > 7.0 Normal [facility] Comment on above: Performed By: #### A 1C #### [facility] [address] [address] [address] Rima Charles Glucose [Mass/Vol] 111 mg/dL Normal [facility] Comment on above: Performed By: #### A 1C #### [facility] [address] [place] [address] Dr. Rima Charles HbA1c (Bld) [Mass fraction] 5.5 % Normal <=6.0 [facility] Comment on above: Performed By: #### A 1C #### [facility] [address] [place] [address] Dr. Rima Charles TAHIR BOX TEST PT SEND OUTo n 12-09-2020 SENT TO REF LAB 12/09/20 Normal [facility] Comment on above: Performed By: #### C BC #### [facility] [address] [place] [address] Dr. Rima Charles TSHon 12-09-2020 TSH 2.651 uIU/mL Normal 0.470-4.680 [facility] Comment on above: Performed By: #### C BC #### [facility] [address] [place] [address] Dr. Rima Charles TSH RANGE SEE BELOW Normal [facility] Comment on above: Result Comment: <0.3 4 UIU/ml HYPERTHYROID 0.34-5.60 UIU/ml EUTHYROID >5.60 UIU/ml HYPOTHYROID Performed By: #### C BC #### [facility] [address] [place] [address] Dr. Rima Charles TYPE AND SCREENon 12-09-2020 TYPE AND SCREEN Negative Normal [facility] Comment on above: Performed By: #### C #### [facility] [address] [address] [address] Rima Charles US PREG TVon 12-02-2020 [...] LILIANE POPE Date: 2020-12-02 09:34 Normal [facility] Vital Signs Date Time Vital Sign Value Performing Clinician Facility 11-05-2024 11:51-0400 Body height 165.1 cm Jacklyn Campos MD Work Phone: [facility] 11-05-2024 11:51-0400 Body mass index (BMI) [Ratio] 23.03 kg/m2 Jacklyn Campos MD Work Phone: [facility] 11-05-2024 11:51-0400 Body weight 62.78 kg Jacklyn Campos MD Work Phone: [facility] 11-05-2024 11:51-0400 Diastolic blood pressure 58 mm[Hg] Jacklyn Campos MD Work Phone: [facility] 11-05-2024 11:51-0400 Heart rate 94 /min Jacklyn Campos MD Work Phone: [facility] 11-05-2024 11:51-0400 Systolic blood pressure 94 mm[Hg] Jacklyn Campos MD Work Phone: [facility] 10-15-2024 10:13-0400 Body mass index (BMI) [Ratio] 22.38 kg/m2 Erum Guidry PA Work Phone: [facility] 10-15-2024 10:13-0400 Body weight 61.01 kg Erum Guidry PA Work Phone: [facility] 10-15-2024 10:13-0400 Diastolic blood pressure 70 mm[Hg] Erum Guidry PA Work Phone: [facility] 10-15-2024 10:13-0400 Systolic blood pressure 118 mm[Hg] Erum Guidry PA Work Phone: [facility] 09-17-2024 11:10-0400 Body mass index (BMI) [Ratio] 22.1 kg/m2 Santosh Joanna DO Work Phone: [facility] 09-17-2024 11:10-0400 Body weight 60.24 kg Santosh Joanna DO Work Phone: [facility] 09-17-2024 11:10-0400 Diastolic blood pressure 70 mm[Hg] Santosh Joanna DO Work Phone: [facility] 09-17-2024 11:10-0400 Systolic blood pressure 112 mm[Hg] Santosh Joanna DO Work Phone: [facility] 08-17-2024 10:00-0400 Body mass index (BMI) [Ratio] 22.86 kg/m2 Noms Nurse [facility] 08-17-2024 10:00-0400 Body weight 62.32 kg Nom Nurse [facility] 08-17-2024 10:00-0400 Diastolic blood pressure 78 mm[Hg] Noms Nurse [facility] 08-17-2024 10:00-0400 Systolic blood pressure 120 mm[Hg] Noms Nurse [facility] 12-12-2023 14:19-0400 Body mass index (BMI) [Ratio] 21.15 kg/m2 Santosh Joanna DO Work Phone: [facility] 12-12-2023 14:19-0400 Body weight 57.66 kg Santosh Joanna DO Work Phone: [facility] 12-12-2023 14:19-0400 Diastolic blood pressure 62 mm[Hg] Santosh Joanna DO Work Phone: [facility] 12-12-2023 14:19-0400 Systolic blood pressure 104 mm[Hg] Santosh Joanna DO Work Phone: [facility] 08-08-2023 15:43-0400 Blood Pressure Location Ya Thornton [facility] 08-08-2023 15:43-0400 Diastolic blood pressure 60 mm[Hg] Ya Thornton [facility] 08-08-2023 15:43-0400 Heart rate 103 /min Ya Thornton [facility] 08-08-2023 15:43-0400 Respiratory rate 18 /min Ya Thornton [facility] 08-08-2023 15:43-0400 SaO2% (BldA) [Mass fraction] 100 % Ya Thornton [facility] 08-08-2023 15:43-0400 Systolic blood pressure 124 mm[Hg] Ya Thornton [facility] 03-09-2023 07:21-0500 Blood Pressure Location Ya Thornton [facility] 03-09-2023 07:21-0500 Body temperature 97.52 [degF] Ya Thornton [facility] 03-09-2023 07:21-0500 Diastolic blood pressure 60 mm[Hg] Ya Thornton [facility] 03-09-2023 07:21-0500 Heart rate 91 /min Ya Thornton [facility] 03-09-2023 07:21-0500 Respiratory rate 18 /min Ya Thornton [facility] 03-09-2023 07:21-0500 SaO2% (BldA) [Mass fraction] 100 % Ya Thornton [facility] 03-09-2023 07:21-0500 Systolic blood pressure 108 mm[Hg] Ya Thornton [facility] 02-21-2023 12:53-0500 Blood Pressure Location Ya Thornton [facility] 02-21-2023 12:53-0500 Diastolic blood pressure 72 mm[Hg] Ya Thornton [facility] 02-21-2023 12:53-0500 Heart rate 103 /min Ya Thornton [facility] 02-21-2023 12:53-0500 Respiratory rate 18 /min Ya Thornton [facility] 02-21-2023 12:53-0500 SaO2% (BldA) [Mass fraction] 99 % Ya Thornton [facility] 02-21-2023 12:53-0500 Systolic blood pressure 110 mm[Hg] Ya Thornton [facility] 11-30-2022 12:10-0400 Blood Pressure Location Agueda Gray [facility] 11-30-2022 12:10-0400 Body temperature 97.52 [degF] Agudea Gray [facility] 11-30-2022 12:10-0400 Diastolic blood pressure 70 mm[Hg] Agueda Gray [facility] 11-30-2022 12:10-0400 Heart rate 97 /min Agueda Gray [facility] 11-30-2022 12:10-0400 Systolic blood pressure 105 mm[Hg] Agueda Gray [facility] 11-11-2022 09:20-0400 Blood Pressure Location Ya Thornton [facility] 11-11-2022 09:20-0400 Body temperature 98.06 [degF] Ya Thornton [facility] 11-11-2022 09:20-0400 Diastolic blood pressure 62 mm[Hg] Ya Thornton [facility] 11-11-2022 09:20-0400 Heart rate 76 /min Ya Thornton [facility] 11-11-2022 09:20-0400 SaO2% (BldA) [Mass fraction] 98 % Ya Thornton [facility] 11-11-2022 09:20-0400 Systolic blood pressure 112 mm[Hg] Ya Thornton [facility] 05-03-2022 14:14-0500 Blood Pressure Location Ritu Desai [facility] 05-03-2022 14:14-0500 Body temperature 97.7 [degF] Ritu Desai [facility] 05-03-2022 14:14-0500 Diastolic blood pressure 62 mm[Hg] Ritu Desai [facility] 05-03-2022 14:14-0500 Heart rate 71 /min Ritu Desai [facility] 05-03-2022 14:14-0500 SaO2% (BldA) [Mass fraction] 98 % Ritu Moralesell [facility] 05-03-2022 14:14-0500 Systolic blood pressure 118 mm[Hg] Ritu Desai [facility] 2021 02:06-0400 Body weight 58.[address] SANTOSH MARSHALL [facility] Comment on above: Performed By: #### AFPMAT #### [facility] [address] [place] [address] Dr. Rima Charles Encounters Encounter Date Encounter Type Care Provider Facility Start: 01-07-2025 ambulatory Marta Almanzar Faccici lity:[facility] Start: 11-06-2024 End: 11-06-2024 Orders Only Ayaka Smith RN [facility] Comment on above: Hypothyroidism affec ting in second trimester (Primary Dx); History of prior with IUGR ; History of premature rupture of membranes Start: 11-05-2024 End: 11-05-2024 Office consultation new/estab patient 60 min Jaclkyn Campos MD Work Phone: [facility] Comment on above: 20 weeks gestation o f (Primary Dx); Low-lying placenta; 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 trimester; History of prior with IUGR ; Family history of autism; History of gestational diabetes in prior , currently ; History of prior with short cervix, currently ; History of premature rupture of membranes Start: 11-05-2024 End: 11-05-2024 ambulatory SANTOSH MARSHALL [facility] Start: 10-15-2024 End: 10-15-2024 Bamboo flowsheet Erum HAYS Work Phone: [facility] Start: 10-15-2024 End: 10-17-2024 Bamboo flowsheet Erum HAYS Work Phone: [facility] Start: 10-15-2024 End: 10-17-2024 Clinisync Result Encounter Erum HAYS Work Phone: [facility] Unsolicited Start: 10-15-2024 End: 10-15-2024 flow sheet Erum HAYS Work Phone: [facility] Comment on above: Second trimester pre gnancy ([facility]); 17 weeks gestation of ([facility]) Start: 10-15-2024 End: 10-15-2024 ambulatory ERUM GUIDRY Not Available Start: 10-02-2024 End: 10-02-2024 Clinisync Result Encounter Santosh Joanna DO Work Phone: [facility] Unsolicited Start: 10-02-2024 End: 10-02-2024 Clinisync Result Encounter Santosh Joanna DO Work Phone: [facility] Unsolicited Start: 09-24-2024 End: 09-24-2024 Chart abstracting Jacklyn Campos MD Work Phone: [facility] Start: 09-24-2024 End: 09-26-2024 Clinisync Result Encounter Santosh Joanna DO Work Phone: [facility] Unsolicited Start: 09-24-2024 End: 09-26-2024 Clinisync Result Encounter Santosh Joanna DO Work Phone: [facility] Unsolicited Start: 09-20-2024 End: 09-20-2024 Orders Only Irene Gutierrez RN [facility] Comment on above: Thyroid disease affe cting [...] on above: 13 weeks gestation o f ([facility]); Second trimester ([facility]); Thyroid disease ; History of prior [...] Start: 07-09-2024 End: 07-09-2024 ambulatory Marta Almanzar Facility:[facility] Start: 07-05-2024 End: 07-05-2024 ambulatory Ham Robins Facility:[facility] Start: 07-04-2024 End: 07-04-2024 ambulatory Marta Almanzar Facility:[facility] Start: 07-04-2024 End: 07-04-2024 Patient encounter procedure Marta Almanzar [facility] Start: 05-14-2024 End: 05-14-2024 ambulatory CARMITA JURADO [facility] Start: 05-14-2024 End: 05-14-2024 Subsequent hospital visit [...] Start: 09-07-2023 End: 09-07-2023 ambulatory Ya Thornton Facility:[facility] Start: 09-07-2023 End: 09-07-2023 Patient encounter procedure Ya Thornton [facility] Start: 08-08-2023 End: 08-08-2023 ambulatory Ya Thornton Facility:[facility] Start: 08-08-2023 End: 08-08-2023 Patient encounter procedure Ya Thornton [facility] Start: 07-12-2023 End: 07-12-2023 ambulatory OPALAYANNA LUZ Facility:[facility] Start: 07-12-2023 End: 07-12-2023 Patient encounter procedure OPAL LUZ [facility] Start: 05-16-2023 End: 05-16-2023 ambulatory Ya Thornton Facility:[facility] Start: 05-16-2023 End: 05-16-2023 ambulatory Ya Thornton Facility:[facility] Start: 04-01-2023 ambulatory Ya [place] [place] Start: 03-24-2023 End: 03-24-2023 ambulatory Ya Thornton Facility:[facility] Start: 03-24-2023 End: 03-24-2023 Patient encounter procedure Ya Thornton [facility] Start: 03-22-2023 End: 03-22-2023 ambulatory Ya Thornton Facility:[facility] Start: 03-22-2023 End: 03-22-2023 Patient encounter procedure Ya Thornton [facility] Start: 03-09-2023 End: 03-09-2023 Lab Drop off Ya Thornton [facility] Start: 03-09-2023 End: 03-09-2023 ambulatory Ya Thornton Facility:[facility] Start: 03-09-2023 End: 03-09-2023 Patient encounter procedure Ya Thornton [facility] Start: 02-21-2023 End: 02-21-2023 Lab Drop off Ya Thornton [facility] Start: 02-21-2023 End: 02-21-2023 ambulatory Ya Thornton Facility:[facility] Start: 02-21-2023 End: 02-21-2023 Patient encounter procedure Ya Thornton [facility] Start: 11-30-2022 End: 11-30-2022 ambulatory Agueda Gray Facility:[facility] Start: 11-30-2022 End: 11-30-2022 Patient encounter procedure Agueda Gray [facility] Start: 11-11-2022 ambulatory Ya Thornton [facility] Start: 11-11-2022 End: 11-11-2022 ambulatory Ya Thornton Facility:[facility] Start: 11-11-2022 End: 11-11-2022 Patient encounter procedure Ya Thornton [facility] Start: 10-08-2022 End: 10-08-2022 ambulatory Ya Thornton Facility:[facility] Start: 10-08-2022 End: 10-08-2022 ambulatory Ya Thornton Facility:[facility] Start: 05-03-2022 End: 05-03-2022 Patient encounter procedure Ritu Desai [facility] Start: 10-19-2021 End: 10-19-[address] SANTOSH MARSHALL Facility: Start: 10-17-2021 End: 10-18-[address] SANTOSH [...] Procedure Procedure Detail Performing Clinician Start: 10-15-2024 AFP, SERUM, OPEN SPI NA BIFIDA Erum HAYS Work Phone: Start: 10-15-2024 Urnls dip stick/tabl et rgnt non-auto w/o micrscp Santosh Joanna DO Work Phone: Start: 10-02-2024 GLUCOSE 1 HOUR Santosh Fa zio DO Work Phone: Start: 09-24-2024 ALL MISCELLANEOUS TEST Santosh Joanna DO Work Phone: Start: 09-12-2024 ALL MISCELLANEOUS TEST Santosh Joanna DO Work Phone: Start: 08-21-2024 Antibody screen Heriberto Campos MD Work Phone: Start: 08-21-2024 CBC W [...] 08-21-2024 ALL CBC WITH AUTO DIFF Santosh Joanna DO Work Phone: Start: 08-17-2024 End: 08-17-2024 Urnls dip stick/tablet rgnt non-auto w/o micrscp Santosh Joanna DO Work Phone: Start: 12-12-2023 IGP,APTIMA HPV,AGE GDLN Santosh Joanna DO Work Phone: Start: 06-04-2021 Adult depression scr eening assessment Jacklyn Campos MD Work Phone: None (qualifier value) Lawson Desai Plan of Treatment Date Care Activity Detail Author Start: 05-27-2031 DTaP,Tdap and Td Vaccines (8 - Td or Tdap) DTaP,Tdap and Td Vaccines (8 - Td or Tdap) [employer] Start: 11-06-2025 End: 11-06-2025 US MFM with or without consult US MFM with or without consult Imaging Routine 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 trimester History of prior with IUGR History of premature rupture of membranes Expected: 11/06/2025 (Approximate), Expires: 11/06/2025 One On One Work Phone: Comment on above: Expected: 11/06/2025 (Approximate), Expires: 11/06/2025 Start: 11-05-2025 [facility] Start: 11-05-2025 Tobacco Screening Tobacco Screening [employer] Start: 01-01-2025 End: 01-01-2025 Patient encounter procedure [facility] Start: 12-17-2024 End: 12-17-2024 Patient encounter procedure 12/17/2024 3:00 PM EDT Office Visit [facility] [address] [place] [id number] Santosh Mrashall DO [address] [place] [address] [facility] Start: 12-11-2024 End: 12-11-2024 Patient encounter procedure 12/11/2024 2:15 PM EDT Appointment [facility] [address] [place] [phone] [facility] - Ultrasound Start: 11-27-2024 End: 11-27-2024 Patient encounter procedure 11/27/2024 3:15 PM EDT Appointment [facility] - Ultrasound [address] [place] [phone] [facility] - Ultrasound Start: 11-20-2024 End: 11-20-2024 Patient encounter procedure 11/20/2024 3:45 PM EDT Appointment [facility] Imaging [address] [place] [phone] [facility] Start: 11-19-2024 Influenza vaccination Influenza Vacc ine [facility] Start: 11-12-2024 End: 11-12-2024 Patient encounter procedure 11/12/2024 11:10 AM EDT Routine [facility] [address] [place] [phone] Santosh Marshall DO [address] [place] [address] [facility] Start: 11-05-2024 End: 11-05-2024 Patient encounter procedure [facility] US Imaging Start: 10-21-2024 End: 09-20-2025 US MFM with or without consult US MFM with or without consult Imaging Routine Thyroid disease affecting History of prior with IUGR Expected: 10/21/2024 (Approximate), Expires: 09/20/2025 [facility] Work Phone: Comment on above: Expected: 10/21/2024 (Approximate), Expires: 09/20/2025 Start: 10-15-2024 End: 12-16-2024 Alpha fetoprotein, maternal Alpha fetoprotein, maternal Lab Routine 17 weeks gestation of ([facility]) Expected: 10/15/2024 (Approximate), Expires: 12/16/2024 [facility] Work Phone: Comment on above: Expected: 10/15/2024 (Approximate), Expires: 12/16/2024 Start: 10-15-2024 End: 10-15-2024 Patient encounter procedure [facility] Comment on above: Arrived Start: 09-17-2024 End: 09-17-2025 Measurement of glucose 1 hour after glucose challenge for glucose tolerance test Glucose tolerance, 1 hour Lab Routine Diabetes mellitus screening Expected: 09/17/2024 (Approximate), Expires: 09/17/2025 [facility] Work Phone: Comment on above: Expected: 09/17/2024 (Approximate), Expires: 09/17/2025 Start: 09-17-2024 End: 09-17-2024 Patient encounter procedure 09/17/2024 10:50 AM EDT Routine [facility] [address] [address] [address] Santosh Marshall, [address] [place] [address] [facility] Start: 08-17-2024 End: 08-17-2025 ABO/Rh ABO/Rh Lab Routine Missed menses , unspecified gestational age Expected: 08/17/2024 (Approximate), Expires: 08/17/2025 [facility] Comment on above: Expected: 08/17/2024 (Approximate), Expires: 08/17/2025 Start: 08-17-2024 End: 08-17-2025 Blood type and Indirect antibody screen panel - Blood Type and screen Lab Routine Missed menses , unspecified gestational age Expected: 08/17/2024 (Approximate), Expires: 08/17/2025 [facility] Comment on above: Expected: 08/17/2024 (Approximate), Expires: 08/17/2025 Start: 08-17-2024 End: 08-17-2025 Drugs of abuse panel - Urine by Screen method Rapid drug screen, urine Lab Routine , unspecified gestational age Encounter for supervision of normal first in first trimester Expected: 08/17/2024 (Approximate), Expires: 08/17/2025 [facility] Comment on above: Expected: 08/17/2024 (Approximate), Expires: 08/17/2025 Start: 08-09-2024 End: 11-09-2024 US Pelvis transvaginal US OB transvaginal Imaging Routine Missed menses Expected: 08/09/2024, Expires: 11/09/2024 [facility] Work Phone: Comment on above: Expected: 08/09/2024 , Expires: 11/09/2024 Start: 11-20-2023 COVID-19 (2023-04 season) COVID-19 ( season) [facility] Start: 11-20-2023 FLU (#1) FLU (#1) [facility] Start: 06-04-2022 Depression Screening Depression Scre [facility] Start: 01-19-2022 ambulatory Ambulatory Facility:H 1 Start: 2019 Microscopic observat ion [Identifier] in Cervix by Cyto stain Pap Smear [facility] Start: 2019 Screening for malign ant neoplasm of cervix Pap Smear [facility] Start: 2017 Hepatitis B (1 of 3 - 19+ 3-dose series) Hepatitis B (1 of 3 - 19+ 3-dose series) [facility] Start: 01-16-2016 Adult BMI Screening Adult BMI Screen ing [facility] Start: 2014 MenB (1 of 2 - MenB 2-Dose Series Bexsero) MenB (1 of 2 - MenB 2-Dose Series Bexsero) [facility] Start: 2013 HPV (1 - 3-dose series) HPV (1 - 3-d ose series) [facility] Start: 2011 Varicella (1 of 2 - 13+ 2-dose series) Varicella (1 of 2 - 13+ 2-dose series) [facility] Start: 2010 Tobacco Screening Tobacco Screening [facility] Start: 2005 Tetanus Diphtheria a nd Pertussis Vaccines (1 - Tdap) Tetanus Diphtheria and Pertussis Vaccines (1 - Tdap) [facility] Start: 1999 MMR (1 of 1 - Standa rd series) MMR (1 of 1 - Standard series) [facility] Bacteria identified in Urine by Culture Urine culture Microbiology Routine Missed menses Ordered: 08/17/2024 [facility] Comment on above: Ordered: 08/17/2024 CBC W Auto Different ial panel - Blood CBC and differential Lab Routine Missed menses , unspecified gestational age Ordered: 08/17/2024 [facility] Comment on above: Ordered: 08/17/2024 Cytology Cervical or vaginal smear or scraping study Pap Smear Pathology and Cytology Routine Well woman exam with routine gynecological exam Ordered: 12/12/2023 [facility] Work Phone: Comment on above: Ordered: 12/12/2023 End: 05-14-2024 DNA Extraction and hold [facility] Work Phone: Comment on above: 1 Occurrences starti ng 05/14/2024 until 05/14/2024, 1 completed Hemoglobin A1c/Hemoglobin.total in Blood Hemoglobin A1c Lab Routine Missed menses , unspecified gestational age Ordered: 08/17/2024 [facility] Comment on above: Ordered: 08/17/2024 Hepatitis B virus surface Ag [Presence] in Serum or Plasma by Immunoassay Hepatitis B surface antigen Lab Routine Missed menses , unspecified gestational age Ordered: 08/17/2024 [facility] Comment on above: Ordered: 08/17/2024 Hepatitis C virus Ab [Presence] in Serum or Plasma by Immunoassay Hepatitis C antibody Lab Routine Missed menses , unspecified gestational age Ordered: 08/17/2024 [facility] Comment on above: Ordered: 08/17/2024 HIV-1/HIV-2 antigen/antibody combination immunoassay HIV-1 and HIV-2 antibodies Lab Routine Missed menses , unspecified gestational age Ordered: 08/17/2024 [facility] Comment on above: Ordered: 08/17/2024 Reagin Ab [Presence] in Serum by RPR RPR Lab Routine Missed menses , unspecified gestational age Ordered: 08/17/2024 [facility] Comment on above: Ordered: 08/17/2024 Rubella antibody, IgG Rubella an tibody, IgG Lab Routine Missed menses , unspecified gestational age Ordered: 08/17/2024 [facility] Comment on above: Ordered: 08/17/2024 Thyrotropin [Units/volume] in Serum or Plasma TSH Lab Routine Missed menses , unspecified gestational age Encounter for supervision of normal first in first trimester Ordered: 08/17/2024 [facility] Comment on above: Ordered: 08/17/2024 US Pelvis transvaginal US OB tra nsvaginal Imaging Routine Missed menses 08/17/2024 9:27 AM EDT [facility] Immunizations Immunization Date Immunization Notes Care Provider Fa [facility] 05-26-2021 tetanus toxoid, reduced diphtheria toxoid, and acellular pertussis vaccine, adsorbed Ya Thornton [facility] 10-21-2015 meningococcal B vaccine, fully recombinant Ya Thornton [facility] 09-15-2015 meningococcal ACWY vaccine, unspecified formulation [facility] 09-15-2015 meningococcal B vaccine, fully recombinant Ya Thornton [facility] 06-22-2010 meningococcal ACWY vaccine, unspecified formulation Ya Thornton [facility] 06-22-2010 tetanus toxoid, reduced diphtheria toxoid, and acellular pertussis vaccine, adsorbed Ya Thornton [facility] 01-30-2009 influenza virus vaccine, unspecified formulation Jacklyn Campos MD Work Phone: [facility] 10-16-2003 DTaP, unspecified formulation Ya Thornton [facility] 10-16-2003 measles, mumps and rubella virus vaccine Ya Thornton [facility] 10-16-2003 poliovirus vaccine, unspecified formulation Ya Thornton [facility] 02-03-2000 DTaP, unspecified formulation Ya Thornton [facility] 01-26-1999 measles, mumps and rubella virus vaccine Ya Thornton [facility] 01-26-1999 varicella virus vaccine Ya Thornton [facility] 1998 DTaP, unspecified formulation Ya Thornton [facility] 1998 DTaP, unspecified formulation Ya Thornton [facility] 1998 DTaP, unspecified formulation Ya Thornton [facility] 1998 hepatitis B vaccine, pediatric or pediatric/adolescent dosage Ya Thornton [facility] NEGATED: Highlighted row has not occurred!11-29-2022 influenza virus vaccine, unspecified formulation Agueda Gray [facility] NEGATED: Highlighted row has not occurred!05-03-2022 influenza virus vaccine, unspecified formulation Ritu Desai [facility] Payers Date Payer Category Payer [facility] [id number] 2024 [facility] Managed Care - PPO [id number] 2023 Unknown [id number] 2023 Unknown [id number] 2023 Unknown 2023 Unknown [id number] 2022 Private Health Insurance [id number] 2022 Medicaid HMO [employer] [id number] 2019 Managed Care Other (unspecified) [employer] Member Subscriber Plan / Payer (Effective 2019-Present) Name: Yana Rehman Relation to Subscriber: Child Name: LILO REHMAN Date of : 1969 (Home) Address: [address] [place] [address] Payer ID: Not on file Type: Not on file Address: [place] [id number] 1998 Unknown [id number] 2.16.840.1.557762.3.579.2. 593 1998 Unknown [id number] 2.16.840.1.624632.3.579.2. 593 1998 Unknown [id number] 2.16.840.1.621225.3.579.2. 593 1998 Unknown [id number] 2.16.840.1.673702.3.579.2. 593 1998 Unknown [id number] 2.16.840.1.200420.3.579.2. 593 1998 Unknown [id number] 2.16.840.1.193168.3.579.2. 593 1998 Unknown [id number] 2.16.840.1.556159.3.579.2. 593 1998 Unknown [id number] 2.16.840.1.925828.3.579.2. 593 1998 Unknown [id number] 2.16.840.1.214710.3.579.2. 593 1998 Unknown [id number] 2.16.840.1.352204.3.579.2. 593 1998 Unknown [id number] 2.16.840.1.461233.3.579.2. 727 1998 Unknown [id number] 2.16.840.1.444011.3.579.2. 727 1998 Unknown [id number] 2.16.840.1.660054.3.579.2. 727 1998 Unknown [id number] 2.16.840.1.676463.3.579.2. 727 1998 Unknown [id number] 2.16.840.1.278818.3.579.2. 727 1998 Unknown [id number] 2.16.840.1.582353.3.579.2. 727 1998 Unknown [id number] 2.16.840.1.067170.3.579.2. 727 1998 Unknown [id number] 2.16.840.1.234535.3.579.2. 727 1998 Unknown [id number] 2.16.840.1.520316.3.579.2. 727 1998 Unknown [id number] 2.16.840.1.362606.3.579.2. 727 1998 Unknown [id number] 2.16.840.1.213899.3.579.2. 727 1998 Unknown [id number] 2.16.840.1.883103.3.579.2. 727 1998 Unknown [id number] 2.16.840.1.066486.3.579.2. 727 1998 Unknown [id number] 2.16.840.1.980697.3.579.2. 727 1998 Unknown [id number] 2.16.840.1.315507.3.579.2. 727 1998 Unknown [id number] 2.16.840.1.086180.3.579.2. 727 1998 Unknown [id number] 2.16.840.1.767164.3.579.2. 479 1998 Unknown [id number] 2.16.840.1.091462.3.579.2. 727 1998 Unknown [id number] 2.16.840.1.679759.3.579.2. 727 1998 Unknown [id number] 2.16.840.1.836501.3.579.2. 727 1998 Unknown [id number] 2.16.840.1.074435.3.579.2. 727 1998 Unknown [id number] 2.16.840.1.267421.3.579.2. 727 1998 Unknown [id number] 2.16.840.1.487109.3.579.2. 727 1998 Unknown [id number] 2.16.840.1.549437.3.579.2. 727 1998 Unknown [id number] 2.16.840.1.385055.3.579.2. 1259 1998 Unknown [id number] 2.16.840.1.743725.3.579.2. 1259 1998 Unknown [id number] 2.16.840.1.816270.3.579.2. 1259 1998 Unknown [id number] 2.16.840.1.577375.3.579.2. 1259 1998 Unknown [id number] 2.16.840.1.798103.3.579.2. 1259 1998 Unknown [id number] 2.16.840.1.304451.3.579.2. 1286 1998 Unknown [id number] 2.16.840.1.043396.3.579.2. 1286 1959 Self-pay 1959 Unknown [id number] 1959 Unknown [id number] 1959 Unknown [id number] 2.16.840.1.329935.3.579.2. 593 Social History Date Type Detail Facility Start: 12-23-2020 End: 05-03-2022 Tobacco smoking status Never smoked tobacco (finding) [facility] Tobacco smoking status Never Jr [facility] Start: 07-12-2023 End: 11-05-2024 Sex Assigned At Female [facility] Start: 12-12-2023 End: 09-17-2024 Alcoholic beverage intake Current drinker of alcohol (finding) [facility] Start: 07-12-2023 End: 11-05-2024 History of Social function [facility] Start: 11-17-2022 Alcohol Comment occasional alcohol u se [facility] Start: 1998 Sex assigned at Not on file N [facility] Tobacco smoking stat us [facility] Tobacco smoking consumption unknown [facility] Sexual Orientation [facility] Start: 07-02-2009 End: 12-03-2020 Sex Female (finding) [facility] Start: 06-30-2024 [facility] Start: 12-23-2020 Tobacco use and exposure Smokeless tobacco non-user [facility] Start: 09-24-2024 End: 11-05-2024 Alcoholic beverage intake Ex-drinker (finding) [facility] The thought of elliecici ponce myself has occurred to me Never [facility] Medical Equipment Procedure Code Equipment Code Equipment Origin al Text Equipment Identifier Dates Glucose Test Str ips, See Instructions, 1 EA, 3, Glucose Test Strips, Molecule [facility], Supply, 166, cm, 10/08/22 15:10:00 EDT, Height/Length Dosing, 57.8, kg, 10/08/22 15:10:00 EDT, Weight Dosing Start: 10-08-2022 Lancets, See Instructions, 100 lancet(s), 3, Lancets, [employer] [facility] [employer] [facility], Supply, 166, cm, 10/08/22 15:10:00 EDT, Height/Length Dosing, 57.8, kg, 10/08/22 15:10:00 EDT, Weight Dosing Start: 10-08-2022 Glucose Test Str ips, See Instructions, 1 EA, 3, Glucose Test Strips, [facility] [employer], Supply, 166, cm, 10/08/22 15:10:00 EDT, Height/Length Dosing, 57.8, kg, 10/08/22 15:10:00 EDT, Weight Dosing Start: 10-08-2022 Lancets, See Instructions, 100 lancet(s), 3, Lancets, [facility] [employer] [facility], Supply, 166, cm, 10/08/22 15:10:00 EDT, Height/Length Dosing, 57.8, kg, 10/08/22 15:10:00 EDT, Weight Dosing Start: 10-08-2022 Glucose Test Str ips, See Instructions, 1 EA, 3, Glucose Test Strips, [facility], Supply, 166, cm, 10/08/22 15:10:00 EDT, Height/Length Dosing, 57.8, kg, 10/08/22 15:10:00 EDT, Weight Dosing Start: 10-08-2022 Lancets, See Instructions, 100 lancet(s), 3, Lancets, [facility], Supply, 166, cm, 10/08/22 15:10:00 EDT, Height/Length Dosing, 57.8, kg, 10/08/22 15:10:00 EDT, Weight Dosing Start: 10-08-2022 Glucose Test Str ips, See Instructions, 1 EA, 3, Glucose Test Strips, [facility], Supply, 166, cm, 10/08/22 15:10:00 EDT, Height/Length Dosing, 57.8, kg, 10/08/22 15:10:00 EDT, Weight Dosing Start: 10-08-2022 Lancets, See Instructions, 100 lancet(s), 3, Lancets, [facility], Supply, 166, cm, 10/08/22 15:10:00 EDT, Height/Length Dosing, 57.8, kg, 10/08/22 15:10:00 EDT, Weight Dosing Start: 10-08-2022 Glucose Test Str ips, See Instructions, 1 EA, 3, Glucose Test Strips, [facility], Supply, 166, cm, 10/08/22 15:10:00 EDT, Height/Length Dosing, 57.8, kg, 10/08/22 15:10:00 EDT, Weight Dosing Start: 10-08-2022 Lancets, See Instructions, 100 lancet(s), 3, Lancets, [facility], Supply, 166, cm, 10/08/22 15:10:00 EDT, Height/Length Dosing, 57.8, kg, 10/08/22 15:10:00 EDT, Weight Dosing Start: 10-08-2022 Glucose Test Str ips, See Instructions, 1 EA, 3, Glucose Test Strips, [facility], Supply, 166, cm, 10/08/22 15:10:00 EDT, Height/Length Dosing, 57.8, kg, 10/08/22 15:10:00 EDT, Weight Dosing Start: 10-08-2022 Lancets, See Instructions, 100 lancet(s), 3, Lancets, [facility], Supply, 166, cm, 10/08/22 15:10:00 EDT, Height/Length Dosing, 57.8, kg, 10/08/22 15:10:00 EDT, Weight Dosing Start: 10-08-2022 Glucose Test Str ips, See Instructions, 1 EA, 3, Glucose Test Strips, [facility], Supply, 166, cm, 10/08/22 15:10:00 EDT, Height/Length Dosing, 57.8, kg, 10/08/22 15:10:00 EDT, Weight Dosing Start: 10-08-2022 Lancets, See Instructions, 100 lancet(s), 3, Lancets, [facility], Supply, 166, cm, 10/08/22 15:10:00 EDT, Height/Length Dosing, 57.8, kg, 10/08/22 15:10:00 EDT, Weight Dosing Start: 10-08-2022 Glucose Test Str ips, See Instructions, 1 EA, 3, Glucose Test Strips, [facility], Supply, 166, cm, 10/08/22 15:10:00 EDT, Height/Length Dosing, 57.8, kg, 10/08/22 15:10:00 EDT, Weight Dosing Start: 10-08-2022 Lancets, See Instructions, 100 lancet(s), 3, Lancets, [facility], Supply, 166, cm, 10/08/22 15:10:00 EDT, Height/Length Dosing, 57.8, kg, 10/08/22 15:10:00 EDT, Weight Dosing Start: 10-08-2022 Glucose Test Str ips, See Instructions, 1 EA, 3, Glucose Test Strips, [facility], Supply, 166, cm, 10/08/22 15:10:00 EDT, Height/Length Dosing, 57.8, kg, 10/08/22 15:10:00 EDT, Weight Dosing Start: 10-08-2022 Lancets, See Instructions, 100 lancet(s), 3, Lancets, [facility], Supply, 166, cm, 10/08/22 15:10:00 EDT, Height/Length Dosing, 57.8, kg, 10/08/22 15:10:00 EDT, Weight Dosing Start: 10-08-2022 Glucose Test Str ips, See Instructions, 1 EA, 3, Glucose Test Strips, [facility], Supply, 166, cm, 10/08/22 15:10:00 EDT, Height/Length Dosing, 57.8, kg, 10/08/22 15:10:00 EDT, Weight Dosing Start: 10-08-2022 Lancets, See Instructions, 100 lancet(s), 3, Lancets, [facility], Supply, 166, cm, 10/08/22 15:10:00 EDT, Height/Length Dosing, 57.8, kg, 10/08/22 15:10:00 EDT, Weight Dosing Start: 10-08-2022 Glucose Test Str ips, See Instructions, 1 EA, 3, Glucose Test Strips, [facility], Supply, 166, cm, 10/08/22 15:10:00 EDT, Height/Length Dosing, 57.8, kg, 10/08/22 15:10:00 EDT, Weight Dosing Start: 10-08-2022 Lancets, See Instructions, 100 lancet(s), 3, Lancets, [facility], Supply, 166, cm, 10/08/22 15:10:00 EDT, Height/Length Dosing, 57.8, kg, 10/08/22 15:10:00 EDT, Weight Dosing Start: 10-08-2022 Glucose Test Str ips, See Instructions, 1 EA, 3, Glucose Test Strips, [facility], Supply, 166, cm, 10/08/22 15:10:00 EDT, Height/Length Dosing, 57.8, kg, 10/08/22 15:10:00 EDT, Weight Dosing Start: 10-08-2022 Lancets, See Instructions, 100 lancet(s), 3, Lancets, [facility], Supply, 166, cm, 10/08/22 15:10:00 EDT, Height/Length Dosing, 57.8, kg, 10/08/22 15:10:00 EDT, Weight Dosing Start: 10-08-2022 Use daily as directed & as needed Start: 03-26-2021 Functional Status Date Assessment Result Facility 08-08-2023 Functional Status N/A [facility] 03-09-2023 Functional Status N/A [facility] 02-21-2023 Functional Status N/A [facility] 11-30-2022 Functional Status N/A [facility] 11-11-2022 Functional Status N/A [facility] 05-03-2022 Functional Status N/A [facility] Clinical Notes 05-03-2022 to 11-05-2024 Nadira Salazar RN - 11/05/2024 1:00 PM Yohana Campos MD - 11/05/2024 1:00 PM LIS Sullivan - 10/15/2024 9:50 AM Caitlin Jeronimo LPN - 09/17/2024 10:50 AM [facility] Note Date & Type Note Facility 11-05-2024 History of Present illness Narrative Headache/epigastric pain/blurry vision/swelling? Patient reports mild headaches. Denies other symptoms Cramping/contractions? No Spotting/vaginal bleeding? No Loss or gush of fluid like your water may have broken? No Do you have cats at home? No Do you change the litter box (reason: risk of toxoplasmosis)? NA Genetic testing done this here or other office? Yes, low risk Have you been seen here at [facility] in a previous ? Recent ER visits or hospitalizations? No Bring blood sugar log or meter with you today? (Please bring them with you for every visit at [facility]) NA Flu vaccine (Jan-May)? NA Any concerns that you would like me to mention to the provider today? No [facility] Consult Note Reason For Consult: Hypothyroidism, history of prior growth restriction HPI: Yana Church is a 24 y.o. at 20w2d with Estimated Date of Delivery: 03/23/25 who presented for consultation from Santosh Ordonez DO regarding [...] placenta She had COVID during the prior Yana has 2nd degree cousin with an autism [...] to maintain TSH values less than 2.5 mU/L. After delivery, the dose of the thyroxine should [...] option for patients with a history of , murphy gestation, and a shortened cervix. However, vaginal progesterone has not been proven effective in the absence of a shortened cervix and should not be considered as an alternative to 17-OHPC. Intramuscular 17-OHPC is not recommended for the primary prevention of in patients with a history of spontaneous . Vaginal [...] transvaginal ultrasound would also be recommended, at least every 2 weeks between 16 and 23w6d. Her [...] his offsprings are obligate carriers. Discussed screening Yana and she declined. Recommendations: Low dose aspirin [...] me if you have any concerns. Jacklyn Campos MD, FACOG (she/hers) Maternal- Medicine [facility] [address] [facility] [address] [place] [address] This document was created with [employer] technology. Though I make every effort to review the dictation as it is transcribed, on occasion the spoken word can be misinterpreted by the technology leading to inappropriate words, phrases, or sentences. This note is addressed to the requesting provider as a consultation for clinical guidance. Specific medical abbreviations are occasionally used and those are generally approved by the [place]?Board of?Obstetrics and?Gynecology?as well as?Lucy campos abbreviations. The above plan of care was based solely on the diagnoses for which a consultation was requested. ?More frequent testing may be indicated based on her other medical/obstetrical conditions. The management of other or medical conditions is beyond the scope of requested consultation and will continue to be followed by the primary plant protection supervisor or primary care provider. Note to patient: The Cures Act makes medical notes like these available to patients in the interest of transparency. However, be advised this is a medical document. It is intended as peer to peer communication. It is written in medical language and may contain abbreviations or verbiage that are unfamiliar. It may appear blunt or direct. Medical documents are intended to carry relevant information, facts as evident, and the clinical opinion of the practitioner. documented in this [facility] History [facility] Present illness Narrative Reason [...] ASSESSMENT & PLAN ICD-10-CM 1. Second trimester ([facility]) Z34.92 2. 17 weeks gestation of ([facility]) Z3A.17 POCT urinalysis dipstick manually resulted Alpha [...] of: LIS Man documented in this encounter [facility] 09-17-2024 History of Present illness Narrative Reason [...] nursing note reviewed. Exam conducted with a lab aide present. Vitals: Estimated body mass index is 22.1 kg/m as calculated from the following: Height as of 11/29/22: 5' 5 . Weight as of this encounter: 132 lb 12.8 oz. BP: 112/70 Patient's last menstrual period was 06/16/2024. ASSESSMENT & PLAN ICD-10-CM 1. 13 weeks gestation of ([facility]) Z3A.13 2. Second trimester ([facility]) Z34.92 3. Thyroid disease E07.9 levothyroxine (Synthroid) [...] or undercooked meat, and stay away from [facility]. Patient has been consulted regarding any further do's and don'ts of . Patient voiced understanding and all questions and concerns were answered. Pt has h/o IUGR, thyroid disease, pt being referred to [facility] for level II ultrasound. Pt should be taking 125mcg of levothyroxine. Pt voiced understanding. Pt to start baby aspirin. Orders Placed This Encounter Procedures Glucose tolerance, 1 hour Follow Up: Patient is to return in 4 weeks for routine OB appointment. Documented by Aliya Jeronimo LPN on behalf of: Santosh Marshall DO documented in this encounter [facility] 08-17-2024 History of Present illness Narrative Reason [...] or undercooked meat, and stay away from [facility]. Patient has also been advised to not change litter boxes and eat 6 small meals a day. Patient has been consulted regarding the do's and don'ts of . Patient was given labs and all questions and concerns were answered. Patient was sent in Magnesium for headaches. Patient given [place] labs to do with initial labs along [...] Carmita Tapia LPN documented in this encounter [facility] 07-09-2024 Note Patient Education Endocrinology Hypothyroidism Hypothyroidism [...] Follow these instructions at home: ??? Take htop-tuc-dcdvkvv and prescription medicines only as told by [...] provider. Document Revised: 03/09/2022 Document Reviewed: 03/09/2022 [employer] Patient Education ? 2023 [employer] Obstetrics and Gynecology Health Maintenance, Female Adopting a healthy lifestyle and getting preventive care are important in promoting health and wellness. Ask your health care provider about: ??? The right schedule for you to have regular tests and exams. ??? Things (more content not included)... [facility] 07-05-2024 Note Patient Education ENT How [...] At your local pharmacy. ? At a [employer] store. ? Online. How to do a sinus rinse 1. Wash your hands with soap and water for at least 20 seconds. If you cannot use soap and water, use hand pattern room attendant. 2. Wash your device using the directions [...] provider. Document Revised: 08/24/2021 Document Reviewed: 08/24/2021 [employer] Patient Education ? 2023 [employer]. Infectious Disease Sinus Infection, Adult A sinus [...] diagnosed? Your s (more content not included)... [facility] 12-12-2023 History of Present illness Narrative [...] Diagnosis Date BMI 23.0-23.9, adult Thyroid disease ([facility]) Well woman exam HISTORY PAST MEDICAL HISTORY SOCIAL HISTORY Past Medical History: Diagnosis Date BMI 23.0-23.9, adult Thyroid disease (CMS/HCC) Well woman exam Social History Tobacco Use [...] nursing note reviewed. Exam conducted with a lab aide present. Vitals: Estimated body mass index is [...] Santosh Marshall DO documented in this encounter [facility] 08-08-2023 Hospital Discharge instructions Patient Education 08/08/2023 [...] to help relieve pain. General instructions Take ahaj-qdm-vagbjuw and prescription medicines only as told by [...] provider. Document Revised: 10/22/2020 Document Reviewed: 10/22/2020 [employer] Patient Education 2022 [employer]. 08/08/2023 16:25:44 Hemorrhoids Hemorrhoids Hemorrhoids are swollen [...] 3 times a day. General instructions Take nozf-qmr-axmcjgh and prescription medicines only as told by [...] provider. Document Revised: 09/16/2021 Document Reviewed: 09/16/2021 [employer] Patient Education 2022 [employer]. 08/08/2023 16:25:43 Urinary Tract Infection, Adult Urinary [...] Treatment for this condition includes: Antibiotic medicine. Lhpl-fse-zitoazw medicines to treat discomfort. Drinking enough water [...] Follow these instructions at home: Medicines Take bksh-guq-htxpyht and prescription medicines only as told by [...] provider. Document Revised: 10/17/2020 Document Reviewed: 10/17/2020 [employer] Patient Education 2022 [employer]. 08/08/2023 16:25:41 Hypothyroidism Hypothyroidism Hypothyroidism is when [...] away. Follow these instructions at home: Take spxc-prm-fdqnsuo and prescription medicines only as told by [...] provider. Document Revised: 03/09/2022 Document Reviewed: 03/09/2022 [employer] Patient Education 2022 [employer]. [facility] 08-08-2023 Evaluation + Plan note Future Scheduled TestsUA with Cult Rflx 08/08/23CBC w/ Auto Diff 02/08/24Comprehensive Metabolic Panel 02/08/24Thyroid Stimulating Hormone 02/08/24Thyroid Stimulating Hormone 05/16/23Free T4 02/08/24Free T4 05/16/23 [facility] 03-09-2023 Hospital Discharge instructions Patient [...] including vitamins, herbs, eye drops, creams, and anij-ciu-cyamyfi medicines. ?Whether you are or may be [...] provider. Document Revised: 11/18/2021 Document Reviewed: 10/10/2020 [employer] Patient Education 2022 [employer] 03/09/2023 08:08:48 Urinary Tract Infection, Adult [...] Treatment for this condition includes: Antibiotic medicine. Osuz-sdw-pcdcsoa medicines to treat discomfort. Drinking enough water [...] Follow these instructions at home: Medicines Take aqqo-eyn-rhrvnbj and prescription medicines only as told by [...] provider. Document Revised: 10/17/2020 Document Reviewed: 10/17/2020 [employer] Patient Education 2022 [employer]. 03/09/2023 08:08:46 Hypothyroidism Hypothyroidism Hypothyroidism is when [...] away. Follow these instructions at home: Take geqc-bid-czkvkgu and prescription medicines only as told by [...] provider. Document Revised: 03/09/2022 Document Reviewed: 03/09/2022 [employer] Patient Education 2022 [employer]. Follow Up Care 03/07/2023 12:06:45 With:Ya Wang FAM, MED Address: [address], [facility] A [address] [phone]- Business (1) When:05/25/2023 Comments:for f/u [facility] 02-21-2023 Hospital Discharge instructions Patient [...] Follow these instructions at home: Medicines Take cgdf-ibz-tfwuzxe and prescription medicines only as told by [...] provider. Document Revised: 10/17/2020 Document Reviewed: 10/17/2020 [employer] Patient Education 2022 [employer]. Follow Up Care 02/21/2023 08:19:47 With:Norberto BARTLETT, CINDY Liang, [facility] Address: [address], [facility] [address] [phone]- Business (1) When:05/25/2023 Comments:for f/u [facility] 11-30-2022 Hospital Discharge instructions Patient [...] Bulgur wheat. Millet. Quinoa. Bran muffins. Popcorn. [place] wafer crackers. Meats and other proteins Margate beans, kidney beans, and díaz beans. Soybeans. [...] Cream cheese. Sour cream. Fats and oils [place]. Beverages Soft drinks. Other foods Cakes and [...] provider. Document Revised: 07/10/2020 Document Reviewed: 07/10/2020 [employer] Patient Education 2022 [employer]. Follow Up Care 11/11/2022 12:10:41 With:Agueda Gray CNP Address: When:2 weeks Comments:Following EGD/Colonoscopy. [facility] 11-11-2022 Hospital Discharge instructions Patient [...] per serving. Talk with a diet and nutrition manager (dietitian) if you have questions about specific [...] Bulgur wheat. Millet. Quinoa. Bran muffins. Popcorn. [place] wafer crackers. Meats and other proteins [place], kidney, and díaz beans. Soybeans. Split peas. [...] Cream cheese. Sour cream. Fats and oils [place]. Beverages Soft drinks. Other foods Cakes and [...] 03/07/2006 Document Revised: 01/09/2018 Document Reviewed: 01/09/2018 [employer] Patient Education 2020 [employer]. 11/11/2022 01:00:54 Hemorrhoids Hemorrhoids Hemorrhoids are swollen [...] 3 times a day. General instructions Take alvc-prq-urlwkgv and prescription medicines only as told by [...] provider. Document Revised: 09/16/2021 Document Reviewed: 09/16/2021 [employer] Patient Education 2022 [employer]. Follow Up Care 11/08/2022 14:59:04 With:Ya Wang FAM, [facility] Address: [address] [facility], [facility] A [place] [phone]- Business (1) When:Within 3 Month(s) Comments:3 mo f/u [facility] 05-03-2022 Hospital Discharge instructions Patient [...] away. Follow these instructions at home: Take yvjc-wks-rbdndvm and prescription medicines only as told by [...] 03/07/2006 Document Revised: 02/17/2018 Document Reviewed: 02/15/2018 [employer] Patient Education 2020 [employer]. Follow Up Care 04/05/2022 12:35:49 With:Ritu Desai CNP Address: [address] [place] [phone]- [phone] When:1 year Comments:or sooner if needed. [facility] Evaluation + Plan note No data available for this section [facility] Evaluation + Plan note Future Appointments Appointment Date:11/30/2022 12:00:00 PM Scheduled Provider:Agueda Gray CNP Location:[facility] Appointment Type:[facility] New Patient Appointment Date:04/04/2023 01:00:00 PM Scheduled Provider:Ya Wang Location:[facility] Appointment Type:FM Open Future Scheduled TestsTSH With T4fr Reflex 10/08/22 [facility] Evaluation + Plan note Future Appointments Appointment Date:04/04/2023 01:00:00 PM Scheduled Provider:Ya Wang Location:[facility] [employer] Appointment Type:FM Open Future Scheduled TestsTSH With T4fr Reflex 10/08/22 [facility] Evaluation + Plan note Future Appointments Appointment Date:07/25/2023 10:00:00 AM Scheduled Provider:Ya Wang Location:[facility] Appointment Type:FM Open Future Scheduled TestsT3 Free 02/21/23Thyroid Stimulating Hormone 02/21/23Free T4 02/21/23 [facility] Evaluation + Plan note Future Appointments Appointment Date:07/25/2023 10:00:00 AM Scheduled Provider:Ya Wang Location:[facility] Appointment Type:FM Open Diagnostic Tests PendingUrine Culture 02/21/23 Future Scheduled TestsT3 Free 02/21/23Thyroid Stimulating Hormone 02/21/23Free T4 02/21/23 [facility] Evaluation + Plan note Future Appointments Appointment Date:07/25/2023 10:00:00 AM Scheduled Provider:Ya Wang Location:[facility] Appointment Type:FM Open Future Scheduled TestsT3 Free 02/21/23Thyroid Stimulating Hormone 02/21/23Free T4 02/21/23US Retroperitoneal Complete 03/09/23 [facility] Evaluation + Plan note Future Appointments Appointment Date:07/25/2023 10:00:00 AM Scheduled Provider:Ya Wang Location:[facility] Appointment Type:FM Open Diagnostic Tests PendingUrine Culture 03/09/23 Future Scheduled TestsT3 Free 02/21/23Thyroid Stimulating Hormone 02/21/23Free T4 02/21/23US Retroperitoneal Complete 03/09/23 [facility] Evaluation + Plan note Future Appointments Appointment Date:07/12/2023 09:30:00 AM Scheduled Provider:OPAL LUZ PA-C [facility] Type:URO New Patient Appointment Date:07/25/2023 10:00:00 AM Scheduled Provider:Ya Wang Location:[facility] Appointment Type:FM Open Diagnostic Tests PendingT3 Free 03/22/23 [facility] Evaluation + Plan note Future Appointments Appointment Date:07/12/2023 09:30:00 AM Scheduled Provider:OPAL LUZ PA-C [facility] App[facility] Type:URO New Patient Appointment Date:07/25/2023 10:00:00 AM Scheduled Provider:Ya Wang Location:[facility] Appointment Type:FM Open [facility] Evaluation + Plan note Future Appointments Appointment Date:07/25/2023 10:00:00 AM Scheduled Provider:Ya Wang Location:[facility] Appointment Type:FM Open Future Scheduled TestsThyroid Stimulating Hormone 05/16/23Free T4 05/16/23 [facility] Evaluation + Plan note Future Scheduled TestsCBC w/ Auto Diff 02/08/24Comprehensive Metabolic Panel 02/08/24Thyroid Stimulating Hormone 02/08/24Free T4 02/08/24 [facility] Evaluation + Plan note Future Appointments Appointment Date:07/09/2024 08:00:00 AM Scheduled Provider:Marta Rivas Location:[facility] Appointment Type:FM New Patient - Adult Future Scheduled TestsCBC w/ Auto Diff 02/08/24Comprehensive Metabolic Panel 02/08/24Thyroid Stimulating Hormone 02/08/24Free T4 02/08/24 [facility] Evaluation note Diagnosis Well woman exam with routine gynecological exam Routine gynecological examination [facility] Diagnosis Family history of autism Family history of psychiatric condition [facility] Diagnosis Missed menses , unspecified gestational age Encounter for supervision of normal first in first trimester Nonintractable headache, unspecified chronicity pattern, unspecified headache type [facility] Diagnosis 13 weeks gestation of ([facility]-HCC) Second trimester (HHS-HCC) state, incidental Thyroid disease Unspecified disorder of thyroid History of prior with IUGR Diabetes mellitus screening Screening for diabetes mellitus [facility] Diagnosis Thyroid disease affecting - Primary History of prior with IUGR [facility] Diagnosis Second trimester ([facility]HS-HCC) state, incidental 17 weeks gestation of ([facility]HCC) [facility] Diagnosis 20 weeks gestation of - Primary Low-lying placenta Hemorrhage from placenta previa, unspecified as to episode of care 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 trimester History of prior with IUGR Family history of autism History of gestational diabetes in prior , currently with other poor obstetric history History of prior with short cervix, currently History of premature rupture of membranes [facility] Diagnosis 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 trimester- Primary History of prior with IUGR History of premature rupture of membranes [facility] No data available for this section [facility]ructionsNot on filedocumented in this encounter [facility]Not on filedocumented in this encounter [facility]Not on filedocumented in this encounter [facility]ructionsNot on filedocumented in this encounter [facility] No data available for this section [facility] Summary Purpose Family History No [...] Comments 03/03/2021 5:01 PM 03/26/2021 7:46 PM Date Activated Date Inactivated Comments 05/30/2021 7:15 [...] DATE CREATED AUTHOR AUTHOR'S ORGANIZ ATION 05/21/2024 [facility] DATE CREATED AUTHOR AUTHOR'S ORGANIZ ATION 07/06/2024 [facility] DATE CREATED AUTHOR AUTHOR'S ORGANIZ ATION 07/10/2024 [facility] DATE CREATED AUTHOR AUTHOR'S ORGANIZ ATION 07/13/2024 [facility] DATE CREATED AUTHOR AUTHOR'S ORGANIZ ATION 10/15/2024 [facility] EPIC DATE CREATED AUTHOR AUTHOR'S ORGANIZ ATION 11/06/2024 [facility] Patient Care team informatio n (unrecognized section and content) Nuclear Physician Relationship Specialty Start Date End Date Staci White MD [address] [place] [address] PCP - General Internal Medicine 11/29/22 Nuclear Physician Relationship Specialty Start Date End Date Staci White MD [address] [place] [address] PCP - General Internal Medicine 11/29/22 Nuclear Physician Relationship Specialty Start Date End Date Staci White MD [address] [place] [address] PCP - General Internal Medicine 11/29/22 Nuclear Physician Relationship Specialty Start Date [place] [address] Attending Provider Medical Clinical Genetics 05/14/24 Nuclear Physician Relationship Specialty Start Date End Date Staci White MD [address] [place] [address] PCP - General Internal Medicine 11/29/22 Nuclear Physician Relationship Specialty Start Date End Date Staci White MD [address] [place] [address] PCP - General Internal Medicine 11/29/22 Nuclear Physician Relationship Specialty Start Date End Date Staci White MD [address] [place] [address] PCP - General Internal Medicine 11/29/22 Nuclear Physician Relationship Specialty Start Date End Date Staci White MD [address] [place] [address] PCP - General Internal Medicine 11/29/22 Nuclear Physician Relationship Specialty Start Date End Date Staci White MD PCP - General Internal Medicine 04/07/21 Nuclear Physician Relationship Specialty Start Date End Date Staci White MD [address] [place] [address] PCP - General Internal Medicine 11/29/22 Nuclear Physician Relationship Specialty Start Date End Date Staci White MD PCP - General Internal Medicine 04/07/21 Nuclear Physician Relationship Specialty Start Date End Date Staci White MD PCP - General Internal Medicine 04/07/21 Reason for Visit (unrecogniz ed section and content) Reason Comments Well Women Visit Reason Comments Amenorrhea Reason Comments Routine Visit Reason Comments Hypothyroidism Hx previous FGR FOR RECORDS PERTAINING TO PATIENTS WHO ARE [...] BE BASED ON THE PRIMARY CLINICAL RECORDS. [facility] [employer] [facility]. provides no warranty or guarantee of the accuracy or completeness of information in this document.
[2024-11-07 13:58] LABS: Thyroid Stimulating Hormone 2.680 uIU/mL (0.358-3.740)
== END 2024-11-07 12:52 | disposition home or self-care (01) ==
PROVIDERS: Visit Provider Obstetrics & Gynecology
DX: Z34.01 Encounter for supervision of normal first pregnancy, first trimester (principal)
CPT/HCPCS: 36415; 84443

== ENCOUNTER 2024-12-11 08:23 | Outpatient (OUT) | payer BC, SELFPAY ==
--- OUTSIDE RECORDS SUMMARY | 2024-12-11 08:30 | XMS_ITS | CCD ---
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 Name Role Phone JOANNA, DR VILLATORO Admitting [...] Care Unavailable Ritu Desai Primary Care Physician Norberto, Ya L Primary Care Physician Norberto, Ya L Admitting [...] Unavailable Staci White MD Primary Care Provider Carmita Jurado [...] Provider UnavailStaci Kirk MD Primary Care Provider [phone] SANTOSH MARSHALL Referring Unavailable STACI WHITE Primary Care Unavailable JACKLYN CAMPOS Attending Unavailable SANTOSH MARSHALL Referring Unavailable STACI WHITE Primary Care Unavailable SANTOSH MARSHALL Referring Unavailable STACI WHITE Primary Care Unavailable SANTOSH MARSHALL Referring Unavailable STACI WHITE Primary Care Unavailable SANTOSH MARSHALL Attending Unavailable ERUM GUIDRY Attending Unavailable SANTOSH MARSHALL Attending Unavailable ERUM GUIDRY Attending Unavailable SANTOSH MARSHALL Attending Unavailable Medications Current [...] day(s), # 28 cap(s), Refills(s) 0, [facility]acy: [facility], 166, cm, 03/09/23 7:33:00 EST, Height/Length [...] carmen, Rectal, BID, 60 EA, Refill(s) 1, [facility] #[id number], 166, cm, 11/11/22 9:28:00 EDT, Height/Length Dosing, 59.4, kg, 11/11/22 9:28:00 EDT, Weight Dosing Start Date: 11/19/22 Status: Ordered Start: 11-11-2022 hydrocortisone -lidocaine 2.5%-3% rectal gel with applicator 1 carmen, Rectal, BID, 60 EA, Refill(s) 1, [facility], 166, cm, 11/11/22 9:28:00 EDT, Height/Length [...] Daily, # 90 tab(s), Refills(s) 0, Pharmacy: [facility], 166, cm, 08/08/23 15:44:00 EDT, Height/Length [...] Daily, # 90 tab(s), Refills(s) 1, Pharmacy: [facility], 166, cm, 05/16/23 14:25:00 EST, Height/Length Dosing, 56.7, kg, 05/16/23 14:25:00 EST, Weight Dosing Start Date: 05/16/23 Status: Ordered Start: 02-07-2023 take 1 tablet by stephanie th once daily Synthroid 112 mcg Tab 112 mcg = 1 tab(s), Oral, Daily, # 60 tab(s), Refills(s) 0, [facility]acy: [facility], 166, cm, 11/30/22 12:12:00 EDT, Height/Length Dosing, 58.8, kg, 11/30/22 12:12:00 EDT, Weight Dosing Start Date: 02/07/23 Status: Ordered Start: 10-08-2022 take 1 tablet by stephanie th once daily Synthroid 112 mcg Tab 112 mcg = 1 tab(s), Oral, Daily, # 60 tab(s), Refills(s) 0, [facility]acy: [facility], 166, cm, 10/08/22 15:10:00 EDT, Height/Length [...] Daily, # 90 tab(s), Refills(s) 3, [facility]acy: [facility], 166, cm, 05/03/22 14:21:00 EST, Height/Length [...] Daily, # 10 tab(s), Refills(s) 0, Pharmacy: [facility], 166, cm, 12/05/19 13:03:00 EDT, Height/Length [...] day(s), # 9 tab(s), Refills(s) 0, Pharmacy: [facility], 166, cm, 03/09/23 7:33:00 EST, Height/Length Dosing, 58.7, kg, 03/09/23 7:33:00 EST, Weight Dosing Start Date: 03/09/23 Stop Date: 03/12/23 Status: Ordered Start: 02-21-2023 End: 02-24-2023 take 1 tablet by mouth three times daily Pyridium 200 mg Tab 200 mg = 1 tab(s), Oral, TID, X 3 day(s), # 9 tab(s), Refills(s) 0, Pharmacy: [facility], 166, cm, 02/21/23 13:06:00 EST, Height/Length Dosing, 58.6, kg, 02/21/23 13:06:00 EST, Weight Dosing Start Date: 02/21/23 Stop Date: 02/24/23 Status: Ordered PNV no.95/ferrous fum/folic ac ( ORAL) (3 sources) PNV no.95/ferrou s fum/folic ac ( ORAL) Take by mouth in the morning. Active PNV no.95/ferrou s fum/folic ac ( ORAL) Take by mouth daily. Active polyethylene glycol 3350 173026 mg / potassium chloride 1480 mg / sodium bicarbonate 5720 mg / sodium chloride 22529 mg powder for oral solution (11 sources) Osmotic Laxative Start: 11-30-2022 NuLYTELY Lauren ry oral powder for reconstitution See Instructions, 1 EA, Refill(s) 0, Prior to colonoscopy., [facility] #[id number], 166, cm, 11/30/22 12:12:00 EDT, Height/Length Dosing, 58.8, kg, 11/30/22 12:12:00 EDT, Weight Dosing Start Date: 11/30/22 Status: Ordered Quantity: 1.0 Unit: EA Repeat number: 1 MV-Min-Fe Fum-FA-DHA ( 1 PO) (10 sources) MV-Min- Fe Fum-FA-DHA ( 1 PO) [...] day(s), # 10 cap(s), Refills(s) 0, Pharmacy: [facility], 166, cm, 02/21/23 13:06:00 EST, Height/Length [...] Episodic Immunizations and screening for infectious disease (4 sources) Encounter for screening for human papillomavirus (HPV); Translations: [Contact with and (suspected) exposure to infections with a predominantly sexual mode of transmission] Onset: 12-19-2020 11-12-2024 Episodic Inflammation; infection of eye (except that [...] unspecified trimester] Onset: 11-05-2024 11-05-2024 Episodic Other complications of (2 sources) size does not accord with dates; Translations: [Uterine size-date discrepancy, second trimester] 12-10-2024 Episodic Other endocrine disorders (4 sources) Hypoglycemia 10-08-2022 Chronic Other eye disorders (4 sources) Eye symptom 10-08-2022 Episodic Other female genital disorders (4 sources) Lesion of labia 05-16-2023 Episodic Other female genital disorders (1 source) Noninflammatory disorder of vulva; Translations: [Other specified noninflammatory disorders of vulva and perineum] Onset: 08-08-2023 Episodic Other female genital disorders (2 sources) Vaginal discharge; Translations: [Other specified noninflammatory disorders of vagina] 11-12-2024 Episodic Other gastrointestinal disorders (4 sources) Constipation [...] conditions (not mental disorders or infectious disease) (13 sources) Encounter for screening for malignant neoplasm [...] Onset: 11-05-2024 11-05-2024 Episodic Residual codes; unclassified (2 sources) Gestation period, 21 weeks; Translations: [21 weeks gestation of ] 11-12-2024 Episodic Residual codes; unclassified (2 sources) Personal history of other complications of , childbirth and the puerperium; Translations: [Personal history of other complications of , childbirth and the puerperium] Onset: 11-05-2024 Episodic Residual codes; unclassified (1 source) 20 weeks gestation of ; Translations: [20 weeks gestation of ] Onset: 11-05-2024 Episodic Residual codes; unclassified (2 sources) Gestation period, 25 weeks; Translations: [25 weeks gestation of ] 12-10-2024 Episodic Thyroid disorders (20 sources) Hypothyroidism, unspecified; [...] Onset: 05-19-2021 Resolved: 11-05-2024 05-19-2021 Episodic Other complications of (2 sources) Endocrine, nutritional and metabolic diseases complicating , second trimester; Translations: [Endocrine, nutritional and metabolic diseases complicating , second trimester] Onset: 05-19-2021 Episodic Other female genital disorders (4 [...] Name Value Interpretation Reference Range Facil ity Urinalysis macro (dipstick) panel (U)on 12-10-2024 Bilirubin, UA Negative Negative - 4(7 0) +++ mg/dL [facility] Blood, UA Negative Negative - 50 Cedric/mcL [facility] Clarity, UA Clear [facility] Color, UA Yellow [facility] Glucose, UA Negative Negative - 1999(110) ++++ mg/dL [facility] Interpretation and review of laboratory results Normal [facility] Ketones, UA Negative Negative - 160(16) ++++ mg/dL [facility] Leukocytes, UA Negative Negative - 50 0+++ Ayana/mcL [facility] Nitrite, UA Negative Negative - Positive [facility] pH, UA 7 5 - 9 [facility] Protein, UA Negative Negative - 1999(20) ++++ mg/dL [facility] Spec Grav, UA 1.01 1 - 1.03 [facility] Urobilinogen, UA 0.2 0.2 - 12 mg/dL [facility] Urinalysis macro (dipstick) panel (U)on 11-12-2024 Bilirubin, UA Negative Negative - 4(7 0) +++ mg/dL [facility] Blood, UA Negative Negative - 50 Cedric/mcL [facility] Clarity, UA Clear [facility] Color, UA Yellow [facility] Glucose, UA Positive Negative - 1999(110) ++++ mg/dL [facility] Interpretation and review of laboratory results Abnormal [facility] Ketones, UA Negative Negative - 160(16) ++++ mg/dL [facility] Leukocytes, UA Negative Negative - 50 0+++ Ayana/mcL [facility] Nitrite, UA Negative Negative - Positive [facility] pH, UA 6 5 - 9 [facility] Protein, UA Negative Negative - 1999(20) ++++ mg/dL [facility] Spec Grav, UA 1.015 1 - 1.03 [facility] Urobilinogen, UA 1.0 0.2 - 12 mg/dL [facility] ALL THYROID STIM HORMONEon 0 11-07-2024 TSH Qn 2.68 m[IU]/L [facility] AFP, SERUM, OPEN SPINA BIFID Aon 10-17-2024 AFP MOM 0.82 . [facility] AFP VALUE 34.7 ng/mL . [facility] COMMENT: Comment . [facility] Comment on above: Alie Moon , Ph.D., [facility] Director References: Available Upon Request. Multiples Of Median Cutoffs For AFP Elevations Murphy 2.5 Black 2.8 IDD 2.0 Twins 4.5 Abbreviation Definitions IDD - Insulin Dep Diabetes OSBR - Open Spina Bifida Risk For further inquiries contact [employer] [facility] at [phone]. This test was developed and its performance characteristics determined by [facility]. It has not been cleared or approved by the Food and Drug Administration. Performed at: [facility] [employer] [facility] [place], [place] [id number] Fence Supervisor: Pily Meraz formerly [facility], Phone: [phone] GEST. AGE ON COLLECTION DATE 17.3 . weeks [facility] GESTAT. AGE BASED ON LMP . [facility] Comment on above: Recalculations are n ot recommended when gestational dating by LMP and ultrasound are within 10 days. INSULIN DEP DIABETES No . [facility] INTERPRETATION Comment . [facility] Comment on above: Interpretation: Scre en Negative [...] Customer Services to discuss available options. The [employer] recommends amniocentesis be offered to women age 35 and older. [age] [facility] MULTIPLE GESTATION No . [facility] OSBR RISK [address] [place] [id number] . [facility] RACE . [facility] RESULTS Report . [facility] TEST RESULTS: Negative . [facility] WEIGHT 134 . lbs [facility] N N LMP [id number] 2 17 N 1 Y 134 N N N N N White/ [facility] Urinalysis macro (dipstick) panel (U)on 10-15-2024 Bilirubin, UA Negative Negative - 4(7 0) +++ mg/dL [facility] Blood, UA Negative Negative - 50 Cedric/mcL [facility] Clarity, UA Clear [facility] Color, UA Yellow [facility] Glucose, UA Negative Negative - 1999(110) ++++ mg/dL [facility] Interpretation and review of laboratory results Normal [facility] Ketones, UA Negative Negative - 160(16) ++++ mg/dL [facility] Leukocytes, UA Negative Negative - 50 0+++ Ayana/mcL [facility] Nitrite, UA Negative Negative - Positive [facility] pH, UA 6 5 - 9 [facility] Protein, UA Negative Negative - 1999(20) ++++ mg/dL [facility] Spec Grav, UA 1.015 1 - 1.03 [facility] Urobilinogen, UA 0.2 0.2 - 12 mg/dL [facility] GLUCOSE 1 HOURon 10-02-2024 Glucose [Mass/Vol] 108 mg/dL NINF - 130 mg/dL [facility] ALL MISCELLANEOUS TESTon MISCELLANEOUS TEST COMMENT . [facility] Comment on above: Test Ordered: [id number] Parvovirus B19, Human, IgG/IgM Parvovirus B19, IgG 0.1 index Reference Range: 0.0-0.8 Negative <0.9 Equivocal 0.9 - 1.1 Positive >1.1 Parvovirus B19, IgM 0.1 index Reference Range: 0.0-0.8 Negative <0.9 Equivocal 0.9 - 1.1 Positive >1.1 Performed at: [facility] [address] [id number] Fence Supervisor: Darion Moon MD, Phone: [phone] Performed at: [facility] [address] [id number] Fence Supervisor: Madi Maloney PhD, Phone: [phone] Parvovirus B19 (Human), IgG, IgM [facility] ALL MISCELLANEOUS TESTon MISCELLANEOUS TEST COMMENT . [facility] Comment on above: Test Ordered: [id number] Parvovirus B19, Human, IgG/IgM Parvovirus B19, IgG 0.1 index Reference Range: 0.0-0.8 Negative <0.9 Equivocal 0.9 - 1.1 Positive >1.1 Parvovirus B19, IgM 0.1 index Reference Range: 0.0-0.8 Negative <0.9 Equivocal 0.9 - 1.1 Positive >1.1 Performed at: [facility] [address] [id number] Fence Supervisor: Darion Moon MD, Phone: [phone] Performed at: [facility] [address] [id number] Fence Supervisor: Madi Maloney PhD, Phone: [phone] Parvovirus B19 (Human), IgG, IgM [facility] ALL CBC WITH AUTO DIFFon BASOPHILS ABSOLUTE AUTO 0 [facility] Basophils/100 WBC (Bld) 0.5 % 0.2 - 2.0 % [facility] Eosinophils/100 WBC (Bld) 0.5 % Low 0.9 - 7.0 % [facility] Erythrocyte distribution width (RBC) [Ratio] 12.3 % 11.0 - 15.0 % [facility] Hematocrit (Bld) [Volume fraction] 38.5 % 36.0 - 48.0 % [facility] IMMATURE GRANULOCYTES ABS AUTO 0.02 [facility] Immature granulocytes/100 WBC (Bld) 0.3 % 0.0 - 0.5 % [facility] Interpretation and review of laboratory results Abnormal [facility] LYMPHOCYTES ABSOLUTE AUTO 1.6 [facility] Lymphocytes/100 WBC (Bld) 21 % 20.5 - 60.0 % [facility] MCH (RBC) [Entitic mass] 33.5 pg 26.7 - 34.0 pg [facility] MCHC (RBC) [Mass/Vol] 35.6 g/dL High 29.9 - 35.2 g/dL [facility] MCV (RBC) [Entitic vol] 94.1 fL 81.0 - 99.0 fL [facility] MONOCYTES ABSOLUTE AUTO 0.4 [facility] Monocytes/100 WBC (Bld) 5.1 % 1.7 - 12.0 % [facility] NEUTROPHILS ABSOLUTE AUTO 5.6 [facility] Neutrophils/100 WBC (Bld) 72.6 % 43.0 - 75.0 % [facility] Platelet mean volume (Bld) [Entitic vol] 11.1 fL 9.5 - 13.5 fL [facility] TBH EO # 0 [facility] TB PLT 211 [facility] RBC 4.09 Low [facility] WBC 7.8 [facility] CBC and differentialon 08-21 Hematocrit (Bld) [Volume fraction] 39 % 36 - 46 % [facility] Platelets (Bld) [#/Vol] 211 10*3/uL 150 - 399 10*3/uL [facility] WBC (Bld) [#/Vol] 7.8 10*3/mL 3.3 - 10.0 10*3/mL [facility] Drug Screen, Urineon 025 Amphetamine/Methamph etamine Negative [facility] Barbiturates Negative [facility] Benzodiazepines Negative [facility] Cocaine Metabolite Negative [facility] Methadone Negative [facility] Opiates Negative [facility] Oxycodone Negative [facility] Phencyclidine Negative [facility] Thc Marijuana, Urine Negative [facility] HBV surface Ag IA Qlon 08-21 Hepatitis B Surface Antigen Negative [facility] HCV Ab IA Qlon 08-21-2024 HCV Ab Ql (S) Non-Reactive [facility] HIV 1+2 Ab+HIV1 p24 Ag IA Ql on 08-21-2024 HIV 1&2 AB/AG Non-Reactive [facility] Hemoglobin A1con 08-21-2024 HbA1c (Bld) [Mass fraction] 5.6 % 4.0 - 6.0 % [facility] Laboratory - Hematology and Cell countson 08-21-2024 Hemoglobin (Bld) [Mass/Vol] 13.7 g/dL 12.0 - 16.0 g/dL [facility] No Panel Informationon 08-21 [facility] Rubella IGG immune statuson 08-21-2024 Rubella immune IgG immune [facility] T. pallidum IgG+IgM IA Ql (S )Ordered By: Nadira Salazar on 08-21-2024 Syphilis Non-Reactive [facility] TSHon 08-21-2024 Thyroid Stimulating (3Rd Generation) Hormone/ Tsh 7.721 [facility] Type and screenon 08-21-2024 Abo/Rh(D) Positive [facility] HCG ( test) Ql (U)o n 08-17-2024 Interpretation and review of laboratory results Abnormal [facility] Preg Test, Ur Positive Negative [facility] US OB TRANSVAGINALon 025 US OB TRANSVAGINAL [...] II, MD, PHD at 20-Aug-2024 10:22:40 AM [facility] Normal Not Available Comment on above: Order Comment: US OB TRANSVAGINAL No LMP recorded. Urinalysis macro (dipstick) panel (U)on 08-17-2024 Bilirubin, UA Negative Negative - 4(7 0) +++ mg/dL [facility] Blood, UA Negative Negative - 50 Cedric/mcL [facility] Clarity, UA Clear [facility] Color, UA Yellow [facility] Glucose, UA Negative Negative - 1999(110) ++++ mg/dL [facility] Interpretation and review of laboratory results Normal [facility] Ketones, UA Negative Negative - 160(16) ++++ mg/dL [facility] Leukocytes, UA Negative Negative - 50 0+++ Ayana/mcL [facility] Nitrite, UA Negative Negative - Positive [facility] pH, UA 7 5 - 9 [facility] Protein, UA Negative Negative - 1999(20) ++++ mg/dL [facility] Spec Grav, UA 1.015 1 - 1.03 [facility] Urobilinogen, UA 0.2 0.2 - 12 mg/dL [facility] Ambulatory Visit Summaryon 0 07-09-2024 Ambulatory [...] 8:40 AM EDT With: Marta Rivas Where: [facility] [address] [place] [address], [place] [address]- Medications What How Much When Why Instructions [...] choosing us for your care. Normal [facility] Family Medicine Office/Clini c Noteon [...] anymore, managed with tylenol Social History: Occupation: [employer] Family life: home with and daughter Diet: no restrictions Caffeine: 1 cup coffee/day Exercise: active lifestyle Alcohol use: denies Drug use: denies Smoking status: denies Health Maintenance: Routine labs: thyroid labs 06/2024, declines further labs Pap (21-64yo): 04/2023 Specialists: Call Center Agent: krysta Dentist: krysta OBGYN: Joanna Review of Systems PHQ Score [...] Recheck TSH/T (more content not included)... Normal [facility] Comment on above: Result Comment: Elec [...] 8:00 AM EDT With: Marta Rivas Where: [facility] [address], [place] [address]- Medications What How Much When Why Instructions New amoxicillin-clavulan ate (Augmentin 875 mg-125 mg Tab) 1 Tablets By Mouth Every 12 hours Acute sinusitis Duration: 10 Days Pickup at [facility] Unchanged levothyroxine (Synthroid 100 mcg Tab) 1 Tablets By Mouth Every day Pharmacy Information [facility]: [address] [place], [place] [id number] [phone] Allergies No Known Allergies Problems Ongoing - [...] for choosing us for your care. Normal [facility] Family Medicine Office/Clini c Noteon 07-05-2024 Family [...] for 10 day(s), 20 tab(s), Refill(s) 0, [facility], 166, cm, 07/05/24 15:34:00 EDT, Height/Length [...] Follow-up With When Contact Information Ham Pineda, [facility], [address], [address] [phone] Additional Instructions: as scheduled with Marta Patient Education Sinus Infection, Adult, [id number] How to Perform a Sinus Rinse, [id number] Problem List/Past Medical History Ongoing Acute sinusitis [...] vaccine, inactivated (more content not included)... Normal [facility] Comment on above: Result Comment: Elec tronically Signed By: Ham Pineda\.irvin\Date and Time Signed: 07/05/24 16:06 EDT CHEMISTRYOrdered By: SYSTEM SYSTEM on 07-04-2024 Free T4 [Mass/Vol] 0.82 ng/dL Normal 0.58 - 1.64 ng/dL [facility] Chem TSH Qn 3.09 m[IU]/L Normal 0.34 - 5.60 mcIU/mL [facility] Free T4on 07-04-2024 Free T4 [Mass/Vol] 0.82 ng/dL Normal 0.58-1.64 [facility] Comment on above: Performed By: #### 2 [id number] #### [facility] [address] [place] [address] TSHon 07-04-2024 TSH Qn 3.09 m[IU]/L Normal 0.34-5.60 [facility] Comment on above: Performed By: #### 2 [id number] #### [facility] [address] [place] [address] DNA EXTRACTION AND HOLDon Method [employer] Puregene Reagents from [employer] Invalid Interpretation Code [facility] Comment on above: Order Comment: Relea se to patient->Automatic Nucleic Acid Concentration 273.2 ng/uL Invalid Interpretation Code [facility] Comment on above: Order Comment: Relea se to patient->Automatic Nucleic Acid Purity 1.90 Invalid Interpretation Code 1.70-2.10 [facility] Comment on above: Order Comment: Relea se to patient->Automatic Signature . Invalid Interpretation Code [facility] Comment on above: Order Comment: Relea se to patient->Automatic Storage and Special Instructions Invalid Interpretation Code [facility] Comment on above: Order Comment: Relea se to patient->Automatic Result Comment: The extracted DNA is stored in the [facility] at -70 degrees C and is being held for future testing. If there are any questions regarding this sample, please contact the [facility] at [phone]. Total DNA Yield 82.0 ug Invalid Interpretation Code [facility] Comment on above: Order Comment: Relea se to patient->Automatic Total Volume DNA 300 ul Invalid Interpretation Code [facility] Comment on above: Order Comment: Relea se to patient->Automatic IGP,APTIMA HPV,AGE GDLNon AGE GDLN ACOG TESTING Note . [facility] Comment on above: TESTS RESULT FLAG UN ITS REF RANGE LAB Clinician Provided Cytology Information Source.............Cervix;Endocervix No. of containers..01 ThinPrep Vial Age Algo ACOG Francheska... FLAG LEGEND: L-Low Normal,H-High Normal,LL-Alert Low,HH-Alert High <-Panic Low,>-Panic High,A-Abnormal,AA-Critical Abnormal Performed at: 01 =G [facility] [address] [place] [address] Sugey Torres MD, IGP, RFX APTIMA HPV ASCU Note . [facility] Comment on above: TESTS RESULT FLAG UN ITS REF RANGE LAB DIAGNOSIS: 02 NEGATIVE FOR INTRAEPITHELIAL LESION OR MALIGNANCY. Specimen adequacy: 02 Satisfactory for evaluation. Endocervical and/or squamous metaplastic cells (endocervical component) are present. Performed by: 02 Yudy Rhoades, Kerrick Kleaner Operator (ASCP) . 02 Note: Note 02 The Pap [...] <-Panic Low,>-Panic High,A-Abnormal,AA-Critical Abnormal Performed at: [address] [address] Sugey Torres MD, Performed at: = - [facility] [address] [id number] Fence Supervisor: Sugey Torres MD, Phone: [phone] Performed at: [facility] [address] [id number] Fence Supervisor: Sugey Torres MD, Phone: [phone] BRUSH-SPATULA CERVIX ENDOCERVIX [facility] Coding Summary.on 09-14-2023 Coding Summary. EEFOIcsw45KDb6lPs+PG hlYWQ+OI1YJBDyF87dyV BmcY1vG6JCLAmTWarhPI ZUMXzSKqOyrsXhLN1mbY NjZXJu IC8+XM3lGQIiAuaorHWe s6O8gKS0Q67edd6sNAxb aNL9LLPlJsShgjnzs4hv tEj7GQzoEbbwIpNn DZLbhQ35KWC1nL61Im78 wFLpjGGhd4teqJv2AbDb EUAfTNZ6gDzvDMwtb3Kf TWVhL30ruQKfc0U6 IGNvbGxhcHNlOyBlbXB0 uS2bAWxwfizws6qjjflh Yrr2rx65iGJgk7I4fWP7 E7BpngY6EAJtlVCp RxqwkZDDqY2vkcntg5jx hdqlToBaRSBrUQr3CSg2 PNRdkFmcAeKnFM60XFQ1 IPChvtEsS1EcIBOx bLuyCyL1m4L5Iq5UG3AR YbluC1RYVFYBXPoxyEG+ KR21ih89K3VgXzpnOpa9 SUKdBXL4lQB2tQ2s DQBhICame8P6pAL9D9Pl wpMzcn3tb5wiHAXpRBut J49koEAqd4O2NQKqhQN3 DNVmkRhpNpEpfK85 Oyc+MUBkkFpbc0HjIcvs z2cqp7kdzGl3QsmxFABv cjFpoCmoLUD4p4CfDm2r YEVlsTF5cFG1rC2h HgPgBkZ6EPerR456HdAs eLKuLexxD05bY1TzrQO+ FUDhZvk8CFXtmAfrDG4m Y4RyXJArjclchIXw tWwoOP9oKLKsfmytFTIu zH6qWSLkQ7h6JrJqTjZ8 MYdlC0TgHJVuvqpsJc86 nQ2nDjFwXgF4JHxr A5SwooF1QPBkyCIpMNzv RCP8H95yi9M6PQJzGJOh UZB1nDM6lP1ktGkzumtd bGVmdDsgdmVydGlj JMjqEKmhW565VSDqhMan PkNvZGluZyBEYXRlOiAg MDYvMjYvMjAyNDwvdGQ+ JCJuQJD5bOkfZJGg qMGmZCkyLc0vvHmxzAzd AF9fPZMxqqjlTFPeiC0z LEKanBErzNvlEB9pBWWf lpbfl020HaXoLVB5 WDShlFEgK7KhyE2nPiYf CXQmUEFfV8XuxLRsWYgs P559MXghTbT9USDzlgHr Z8XrLUDfnAmcLrX8 i7N5Aw7Fi5VtwocqZ6Dm zFTnLwBwUkzuOVk0R1Wr PjwvdHI+WY11OTGsIS36 GRz7JET1mNyoZCci KHTaP7HqtG6pEyHgMAAv ZGRkOyc+PHRhYmxlIHdp ZHRoPScxMDAlJyBzdHls NY8mDv2yBPHtMNRe pEztqOYjEhYed7slUPLv GDxlAO4czPrbV2AldPN1 EALus8b1Po04M20wI8Sk dXA+ZOMwbHX8wSU4 zN6pRzQgKtL3LHfsM744 PqGmfCWbAsnly9ptx7ya eSv6KkC4FMUksdBbtHud BXR8k8LbDw24H86x IHdpZHRoPSIxNSUiIHZh oBpsxh5qwL2nBq3+PGNv vNQ5gYO2lT3vQpJgTvB5 HMmsB006ErTdmQMa Rspiq8brw2okqJg9AxVy NIKrxeGsxPrsFJC1s5Ps Oa11B8SdrBkvv8QbQlw0 ci36aALet5T1qND3 K0ZuWAYpyjairMTkwVuy EV0mWXKheydzGZIhqY5x ZQHmB2y6ZsGwDpW9KLcg P2FjdhN5NFYqkWDz NAZdaWFHfH4alakso0ou jvanCqLhLFMfQXw0ZTp8 TSIotFywVqGkJDG6SxG5 QPP0pQIqhA2yxMej rgngvF9dLba+HSY0jDPb nTLGSA4yNjcllBJ+PHRk QEW8iQmnCSvbJYMseL6y JQXxI6t1AqOfJhW5 BBfvD6AhzpM6CKEztEAc NJOglZEYwJ7tavodr7xf dsmcHyLdWBInHUd8DIf4 LWFsaWduOiBsZWZ0 MdX0DQG5mDBxuA4toScu cqjwwH6kUap+QmlydGgg GYY5BQr4W5JtDzu5XTSf iFqaZX5evVHeFSog Bd9pvTzmhXenEL2oTWNa gifzv266HgDrp4mmXXXw lQWgVYueEAQ8X26kg9J8 NHPbULNdVPP5cFP3 cV2wiXqivtiyzDVqrZgf mvCkgXliPPefSHhpV228 UJDcrIhzBzSyCDt9A7Tq Yse1MYApnJzvLS4d vSCrXHaoBs5flBlmmXeb ZG6uGVWwtgqrl772FwFc a3llSLZxgWJcPCruDDE7 E21gu3C4XHTrIBXl JWF2gPB8dB3euNapixog bGVmdDsgdmVydGljYWwt JYcwV297TGYlhLjwSaOg qAs5H0DsBnt4HMPt hMzfXO4ysEZrQIwnFr9i aEzeoPikAK3sGIJjcwop d540BeNhy7eaWEAenJMv WAufAMM2Z69ui7G6 BUScVRXpVWC8yQL3jR0e bGlnbjogbGVmdDsgdmVy nCclTRtiSPafU899GZNj cDsnPlBhdGllbnQg UPwpVQm2D8FfOhzoqRF+ NU24HLVyEH87bTHleEFy c3lugVm9TzTrLGHqRTG5 zJpmQOifq5KwHPGd L22hyLJzw3K9QRGakNlw iHLiKtOwvRC4mC8lZCua uhgag6frbpopJakup9hw em83hG50B09uQRvw ZHRoPSIzMCUiIHZhbGln cf7ceI5wRq9+PGNvbCB3 yPD1wL1xYTHuGuG6NWbv G685PcAduLDhFyfo a3uqi1lpyEn7OaA1DJYj tgJfoObhYKP1n4KiWt75 F24jPWveVHYcTDBeKVWg VFOutLkkyg7fyV3l Ii8+JPBvyYH0gKK0wZ6h GrCmFwI3GRvoC234FiHl cFNxWldiN40mR9AckRD+ SGEuLud1AYBswQhx AR4enQEfUFcbZd1uDWL8 EfMtSoHvLCkqU8HkKMJr spiuuiwwmAT1TZGcFDFq hW19Jn6qhOprYKGt uJUWnO2ewvpeb4mzsbey GwMcABUkXEj4GUz9DORk oBpnDnMtQEK9SaF2PPO4 oHPemX0xsFgdelyb xI8mD8EiYKGsfwuuMi69 cB0nBoMxEfK6JVigCsd+ QlJPRUNLRUwsIFNJRVJS TVEVTU61EJ93cZZj d5E7uLG6L9BwWNWoikvl hhjuvMK6KXCaGLEgmN47 hBKtTFkkUi6ll7K1z473 JBQfDEFbsT26Hr9e uRdoENHoxWQVsJ8twvcu w5gawbheOlEjGVUvMCq0 TSe0HACclJaeBzTwNOZ2 NnW7TRK4dIBaaL2m wPvlbfzacY7lDzn+MTAv EqzzFWf5MBrtqFX+PHRk QQR1pZxkMNpvOMIiyK1u JJKtT3y1QbTvVuH1 LHodE9WcIKAicqxyVk60 tQ9pPhCnNrF5NVdlM5Tf evM4DMTrhJZiJEeiDEB0 V78lr9Y2VQXoIUNw NNQ6fJQ3eM1sxFrmsiad bGVmdDsgdmVydGljYWwt OFvwY970AKWxiZauDwL3 PJodTNDqTS29FF28 qHOlh4D2xLN8P1AgGSFc vxomebwrdWQ7RNNaXQYa vI10aESxFTsbDz0vz5E7 d089SWGrANDlwC25 Ex0vgBpfFWZgjCVHfJ7y pkhwn4mikgapOtIpXEQo WTp9XIj6MLQalVehUgKp GPJ0NvE8FEF0ySDe mT3skFptrwpomM9rXvq+ BvApCRrjRE46NU57gWJh f9Z3fWX7B6DiESHmkqoy oazhhUG5NKHtBGJy iQ30lKHwVDhnMg6to5D6 g442CSVcXDZoiP02Mp0g tRttGBBqlHEHtQ1gealz s6cazueeFqJbYEVl LCd3RVs1JWYqqTmcCcXw LQU7AtN0TMJ0rOJriB2n dUeufkdcnX0uFqg+T3V0 mVF3cKQflDtwiFZ+ SV80ko51T1UkEpkxPml3 NMWqHRA3dDQ5wS1eAAJy KDtki3V1lTJ0K9AyfeHr dp8oj6hdIGZzRTnk G92faAPkd3Z5VCShxAA5 MFXsbEswOrYspC88Cct+ VYPprPoyi3JjXvvft1xl o3iodAq3KdEqERFx wvVhqKdyIQH0c7VyQm49 C14iUVrjUXNiCLSbLMNz XNLzyGrztj0ifM1tDv7+ RCPjrTS8xKF0wU3n NkTsLeT1KFboB008MdLd jZJtOfqjd7snb9cchIv5 IjIwJSIgdmFsaWduPSJ0 v4GjDd83B9UbeQsq u8GdTpl2ff65sGVaw8Z9 vCX5O6XjURRkcuesqBLu yFwoHQ9wNIYrycqwQBSl bX3aLOLuG2m4DbBh UkK2AGvaW6YsdqA3EVMv mPNjCPYobTPJtA5icnhg d2wttuvmPdZyVCMfGJs9 KSc3JICgjNcxFdWd IWB2RvR4GZK1nVZbcN3n aDixbciwmF9eSay+UGh5 s9iirWEtID1bcGK2RW52 JO84hJTse9N9kQE7 E4YhKHVtgqayyuhpyZU2 GNZrADMijA60Lp9avVdv Sn5qYSSmMMS3BGTveAMg G2MduM5bEzQnJSBo BBKkS8TdeBTwCXmcL511 OTapLaR5CCRhcqVxE7Oa XQDcrLmvUpE6y6X5Qs4M KG71AP35IW75cBRh m0E8iFS6R3TbPCSwcuau wcjbpKU7NCEcBARaeI62 Rr8brDboLv3wETOjYKF2 HANelHClQ6OvoA6e TgPhQIHoKUTqW5RbbJCq HObaW484VAhrPuU0FOQn njIsI8RiYCGndFhuFtR8 c3X8Eo4RMg36PU86 MB29pPHqo0K6nNM1M1Rk WYKwcqbgzwbtjKA9TDMa NSSugX91Ss7wkYpzFj6g FYIeTWF5KBTpdMMj A0CnyL4rDiTfSXQlNSGp M6ZhkKLjARymG121ADcx NwK0LJGaqqAsJ7JcYDNs jKeoLbG0a9S0Gd7C ZKsdesw3E1PiOfkugJK+ BU57WSEqNW49kIQhhPYl v0yrqMi1RkNwFEXjSHQ7 pKiwFItxc8QvNPIe S24tjHKij8I1C (more content not included)... Normal [facility] CHEMISTRYOrdered By: SYSTEM SYSTEM on 09-07-2023 Free T4 [Mass/Vol] 0.92 ng/dL Normal 0.58 - 1.64 ng/dL Remisol Chem TSH Qn 3.37 m[IU]/L Normal 0.34 - 5.60 mcIU/mL Remisol Chem Consent for Treatmenton 08-19 Consent for Treatment [id number] #1.00TIFF Normal [facility] Free T4on 09-07-2023 Free T4 [Mass/Vol] 0.92 ng/dL Normal 0.58-1.64 [facility] Comment on above: Performed By: #### 2 [id number] #### [facility] [address] [place] [address] TSHon 09-07-2023 TSH Qn 3.37 m[IU]/L Normal 0.34-5.60 [facility] Comment on above: Performed By: #### 2 [id number] #### [facility] [address] [place] [address] Ambulatory Visit Summaryon 0 08-08-2023 Ambulatory Visit [...] choosing us for your care. Godfrey [facility] Family Medicine Office/Clini c Noteon [...] Unspecified hemorrhoids) Resolved, no additional complaints. [facility]/diagnost ic colonoscopy due [...] with voice recognition artificial intelligence software, specifically [employer], [employer] and or [employer]. Substitutions may have occurred due to the [...] Alcohol Curren (more content not included)... Normal [facility] Comment on above: Result Comment: Elec [...] Follow these instructions at home: ? Take ejtz-yib-qrslvkx and prescription medicines only as told by [...] provider. Document Revised: 03/09/2022 Document Reviewed: 03/09/2022 SwiftPayMD(TM) by [employer] Patient Education ? 2022 [employer]. Gastroenterology Hemorrhoids Hemorrhoids are swollen veins in and around the rectum or anus. There are two types of hemorrhoids: ? Internal hemorrhoids. These occur in the veins that are just inside the rectum. They may poke through to the outside and become irritated and painful. ? External hemorrhoids. These occur in the veins that are (more content not included)... Normal [facility] PAP [id number] 05-20-2023 C. trachomatis rRNA FRANSISCO+probe Ql (Cvx) Negative Invalid Interpretation Code Negative [facility] Comment on above: Performed By: #### 1 [id number] ####[facility] [address] [place] [address] Cytology report Cyto stain Doc (Cvx/Vag) Note Invalid Interpretation Code [facility] Comment on above: Result Comment: TEST S RESULT FLAG UNITS REF RANGE LAB Clinician Provided Cytology Information Source.............Cervix No. of containers..01 ThinPrep Vial DIAGNOSIS: 01 NEGATIVE FOR INTRAEPITHELIAL LESION OR MALIGNANCY. Specimen adequacy: 01 Satisfactory for evaluation. Endocervical and/or squamous metaplastic cells (endocervical component) are present. Performed by: 01 Erum Mckenzie, Kerrick Kleaner Operator ([facility]) . 01 Note: Note 01 The Pap [...] <-Panic Low,>-Panic High,A-Abnormal,AA-Critical Abnormal Performed at: [address] [address] Sugey Torres MD, Performed By: #### 1 [id number] ####[facility] [address] [place] [address] HPV 16+18+31+33+35+39+45 +51+52+56+58+59+66+6 8 DNA Probe+sig amp Ql (Cvx) Negative Invalid Interpretation Code Negative [facility] Comment on above: Result Comment: This nucleic acid amplification test detects fourteen high-risk HPV types (16,18,31,33,35,39,45,51,52,56,58,59,66,68) without differentiation. Performed By: #### 1 [id number] ####[address] [place] [address] N. gonorrhoeae rRNA FRANSISCO+probe Ql (Cvx) Negative Invalid Interpretation Code Negative [facility] Comment on above: Performed By: #### 1 [id number] ####[address] [address] T. vaginalis rRNA FRANSISCO+probe Ql (Unsp spec) Negative Invalid Interpretation Code Negative [facility] Comment on above: Result Comment: Perf ormed at: [facility] [address] [id number] MD Brian Mayes Performed at: =G [facility] [address] [id number] MD Brian Mayes Performed By: #### 1 [id number] ####[address] [place] [address] Family Medicine Office/Clini c Noteon 05-16-2023 Family [...] was performed without the assistance of medical administrative as witness Pelvic Exam: Vulva: normal appearance, [...] up every 3-5 years based on results AGRICULTURAL ECONOMICS PROFESSOR referral if needed for further testing or [...] 6 months (more content not included)... Normal [facility] Comment on above: Result Comment: Elec tronically Signed By: Ya Wang\.br\Date and Time Signed: 05/16/23 15:38 EST PAP [id number] 05-16-2023 Gynecological Body Site CERVIX Normal [facility] Comment on above: Performed By: #### 1 [id number] ####[facility] [address] [place] [address] Patient Educationon 05-16-19 Patient Education Obstetrics and [...] including vitamins, herbs, eye drops, creams, and huzd-vul-dparoeo medicines. ? Any bleeding problems you have. [...] provider. Document Revised: 06/05/2021 Document Reviewed: 06/05/2021 [employer] Patient Education ? 2022 SwiftPayMD(TM) by [employer] Oncology Cancer Screening for Women A [...] How i (more content not included)... Normal [facility] Consent for Treatmenton Consent for Treatment [id number] #1.00TIFF Normal [facility] UA With Cult Reflexon 2023 Bilirubin Ql (U) Negative Normal Negative [facility] Comment on above: Performed By: #### 1 [id number] ####[facility] [address] [place] [address] Clarity (U) CLEAR Normal Clear [facility] Comment on above: Performed By: #### 1 [id number] ####[facility] [address] [place] [address] Color (U) YELLOW Normal Yellow [facility] Comment on above: Performed By: #### 1 [id number] ####[facility] [address] [place] [address] Epithelial cells.squamous LM.HPF (Urine sed) [#/Area] 0-2 Normal 0-2 [facility] Comment on above: Performed By: #### 1 [id number] ####[facility] [address] [place] [address] Glucose Test strip (U) [Mass/Vol] Negative Normal Negative [facility] Comment on above: Performed By: #### 1 [id number] ####[facility] [address] [place] [address] Hemoglobin Ql (U) Negative Normal Negative [facility] Comment on above: Performed By: #### 1 [id number] ####[facility] [address] [place] [address] Ketones (U) [Mass/Vol] Negative Normal Negative [facility] Comment on above: Performed By: #### 1 [id number] ####[facility] [address] [place] [address] [place].plasma/Lithi um.RBC (Bld) [Mass ratio] 0-3 Normal 0-3 [facility] Comment on above: Performed By: #### 1 [id number] ####[address] [address] Nitrite Ql (U) Negative Normal Negative [facility] Comment on above: Performed By: #### 1 [id number] ####[address] [address] pH (U) 6.0 [pH] Invalid Interpretation Code 5.0-9.0 [facility] Comment on above: Performed By: #### 1 [id number] ####[address] [address] Protein (U) [Mass/Vol] Negative Normal Negative [facility] Comment on above: Performed By: #### 1 [id number] ####[address] [place] [address] Specific gravity (U) [Rel density] >=1.030 Invalid Interpretation Code 1.005-1.030 [facility] Comment on above: Performed By: #### 1 [id number] ####[address] [address] Type of Urine collection method Clean Catch Normal [facility] Comment on above: Performed By: #### 1 [id number] ####[address] [place] [address] Urobilinogen Qn (U) 0.2 {Mehdi'U}/dL Normal 0.0-1.0 [facility] Comment on above: Performed By: #### 1 [id number] ####[facility] [address] [place] [address] WBC Auto Ql (U) Negative Normal Negative [facility] Comment on above: Performed By: #### 1 [id number] ####[facility] [address] [place] [address] WBC LM.HPF (Urine sed) [#/Area] 0-5 Normal 0-5 [facility] Comment on above: Performed By: #### 1 [id number] ####[facility] [address] [place] [address] URINALYSISOrdered By: Alphonso Wang on 03-24-2023 Bilirubin [...] AM) Normal Negative [facility] UA Auto SS [place].plasma/Lithi um.RBC (Bld) [Mass ratio] 0-3 /HPF Normal 0-3/HPF [facility] UA Auto SS Nitrite Ql (U) Negative (03/24/23 11:15 AM) Normal Negative [facility] UA Auto SS pH (U) 6.0 *NA* (03/24/23 11:15 AM) Invalid Interpretation Code 5.0 - 9.0 [facility] UA Auto SS Protein (U) [Mass/Vol] Negative (03/24/23 11:15 AM) Normal Negative [facility] UA Auto SS Specific gravity (U) [Rel density] >=1.030 *NA* (03/24/23 11:15 AM) Invalid Interpretation Code 1.005 - 1.030 [facility] UA Auto SS UA Spec Desc Clean Catch (03/24/23 11:15 AM) Normal [facility] UA Auto SS Urobilinogen Qn (U) 0.3644076 {Mehdi'U}/dL Normal 0.0 - 1.0 EU/dL [facility] UA Auto SS WBC Auto Ql (U) Negative (03/24/23 11:15 AM) Normal Negative [facility] UA Auto SS WBC LM.HPF (Urine sed) [#/Area] 0-5 /HPF Normal 0-5/HPF [facility] UA Auto SS T3 Freeon 03-23-2023 Free T3 [Mass/Vol] 2.9 pg/mL Invalid Interpretation Code 2.0-4.4 [facility] Comment on above: Result Comment: Perf ormed at: [facility] [address] [id number] PhD Haider Barraza Performed By: #### 2 [id number], [id number], [id number] ####[facility] [address] [place] [address] US Retroperitoneal Completeo n 03-23-2023 US Retroperitoneal [...] MD Transcribed by: RAZIA Technologist: HW Normal [facility] CHEMISTRYOrdered By: SYSTEM SYSTEM on 03-22-2023 Free T4 [Mass/Vol] 1.10 ng/dL Normal 0.58 - 1.64 ng/dL Remisol Chem TSH Qn 0.90 m[IU]/L Normal 0.34 - 5.60 mcIU/mL Remisol Chem Consent for Treatmenton Consent for Treatment [id number] #1.00TIFF Normal [facility] Free T4on 03-22-2023 Free T4 [Mass/Vol] 1.10 ng/dL Normal 0.58-1.64 [facility] Comment on above: Performed By: #### 2 [id number], [id number], [id number] ####[facility] [address] [place] [address] TSHon 03-22-2023 TSH Qn 0.90 m[IU]/L Normal 0.34-5.60 [facility] Comment on above: Performed By: #### 2 [id number], [id number], [id number] ####[facility] [address] [place] [address] C Urineon 03-11-2023 Bacteria identified Cx Nom [...] Locations R1: This test was performed at: [facility], [address] [place] [address], [address] , [place], Normal [facility] Comment on above: Performed By: #### 2 [id number] ####[facility] [address] [place] [address] Family Medicine Office/Clini c Noteon 03-11-2023 Family [...] due to her gallbladder. She saw a salvager helper in 11/2022. She is able to schedule [...] shows: Negat (more content not included)... [facility] Comment on above: Result Comment: Elec [...] Urnls Dip Stick Auto w/o Microscopy POC 08927 Your Care Team Attending Physician - Ya [...] 10:00 AM EDT With: Ya Wang Where: [facility] Normal Recurrent UTI (urinary tract infection), pp_set_radiology_ subspecialty, [facility]\.br\ Medications\.br\ What How Much When Why Instructions\.br\ New cephalexin (Keflex 500 mg Cap) 1 Capsules By Mouth 4 times a day Feeling of incomplete bladder emptying Recurrent UTI (urinary tract infection) Duration: 7 Days Pickup at [facility]\.br\ New phenazopyridine (Pyridium 200 mg Tab) 1 Tablets By Mouth 3 times a day Feeling of incomplete bladder emptying Recurrent UTI (urinary tract infection) Duration: 3 Days Pickup at [facility]\.br\ Unchanged levothyroxine (Synthroid 112 mcg Tab) [...] instructions Prior to colonoscopy. \.br\ Pharmacy Information\.br\ [facility]: [address] [place], [place] [id number] [phone]\.br\ Test Results\.br\ Urnls Dip Stick Auto w/o Microscopy POC 26250 (03/09/2023)\.br\ Bilirubin Urine Dipstick - Negative\.br\ Blood Urine Dipstick - Trace-intact\.br\ Glucose Urine Dipstick - Negative\.br\ Ketones Urine Dipstick - Negative\.br\ Leukocytes Urine Dipstick - Trace\.br\ Nitrite Urine Dipstick - Negative\.br\ Protein Urine Dipstick - Negative\.br\ Specific [place] Urine Dipstick - 1.020\.br\ Urine Appearance Urine [...] including vitamins, herbs, eye drops, creams, and telv-wal-agkigvu medicines.\.br\ ? \.br\ Whether you are or [...] nerves are communicating with your muscles.\.br\ What [facility] Patient Educationon 03-09-20 Patient Education Endocrinology [...] Follow these instructions at home: ? Take qdwj-hxc-qbzuxfk and prescription medicines only as told by [...] provider. Document Revised: 03/09/2022 Document Reviewed: 03/09/2022 [employer] Patient Education ? 2022 [employer]Facts. Obstetrics and Gynecology Urinary Tract Infection, Adult A urinary tract infection (UTI) is an infection of any part of the urinary tract. The urinary tract includes the kidneys, ureters, bladder, and urethra. These organs make, store, and get rid of urine in the body. An upper UTI affects the ureters and kidneys. A lower UTI affects the bl (more content not included)... [facility] Physician Referralon 023 Physician Referral [id number] #1.00TIFF [facility] Provider Letteron 03-02-2023 Provider Letter March 02, 2023 YANA CHURCH [address] [place] [id number] : [address] Clay Waters is know on your insurance & we are able to schedule your EGD & Colonoscopy. Please call us at [phone] at your [facility] convenience to schedule your procedure. Thank you for your prompt attention to this matter. Sincerely, [facility] Reminderson 03-02-2023 Reminders - From: Erum Gold To: [facility] - Reminders/Recalls; Sent: 11/30/2022 12:34:03 EDT Show up: 11/30/2022 12:34:00 EDT Subject: Ambulatory Reminder [employer] Reminder/Recall Call pt and scheduled EGD and Colonoscopy with Dr. Williamson once [employer] is approved. - From: Rusty Alfred ([facility] - Reminders/Recalls) To: Yue Perez; Sent: [...] patient to call office to schedule [facility] C Urineon 02-23-2023 Bacteria identified Cx [...] Locations R1: This test was performed at: [facility], [address] [place] [address], [facility]- , , [facility] Comment on above: Performed By: #### 2 [id number] ####[facility] [address] [place] [address] Family Medicine Office/Clini c Noteon 02-21-2023 Family [...] color was orange in appearance due to rdkj-oda-osqtwox meds she was taking, normal urobilinogen pH [...] day(s), # 10 cap(s), Refills(s) 0, Pharmacy: [facility], 166, cm, 02/21/23 13:06:00 EST, Height/Length Dosing, 58.6, kg, 02/21/23 13:06:00 EST, Weight Dosing phenazopyridine, 200 mg = 1 tab(s), Oral, TID, X 3 day(s), # 9 tab(s), Refills(s) 0, Pharmacy: [facility], 166, cm, 02/21/23 13:06:00 EST, Height/Length Dosing, 58.6, kg, 02/21/23 13:06:00 EST, Weight Dosing Urine Culture Urnls Dip Stick Auto w/o Microscopy POC 01955 2. Acute cystitis (N30.00: Acute cystitis without hematuria) #1 3. Constipation in female (K59.00: Constipation, unspecified) improving. occasional Colace OTC and Miralax 4. Hemorrhoids (K64.9: Unspecified hemorrhoids) improving, stable 5. Hypothyroidism (E03.9: Hypothyroidism, unspecified) Chronic Stable with 112 mcg daily of Synthroid _ control Weight is stable Asymptomatic- noteable tachycardia today Du (more content not included)... Normal [facility] Comment on above: Result Comment: [...] these instructions at home: Medicines ? Take lfpg-hrk-xaxnjfo and prescription medicines only as told by [...] provider. Document Revised: 10/17/2020 Document Reviewed: 10/17/2020 SwiftPayMD(TM) by [employer] Patient Education ? 2022 [employer]. [facility] Ambulatory Visit Summaryon 0 11-30-2022 [...] 1:00 PM EST With: Ya Wang Where: [facility] Primary Care Normal [facility] Gastroenterology Office/Clin ic Noteon 11-30-2022 Gastroenterology [...] Refill(s) 0, Prior to colonoscopy., [id number], 166, cm, 11/30/22 12:12:00 EDT, Height/Length Dosing, [...] Hypothyroidism Left (more content not included)... Normal [facility] Comment on above: Result Comment: Elec [...] Bulg[place] wheat. Millet. Quinoa. Bran muffins. Popcorn. [place] wafer crackers. Meats and other proteins [place] beans, kidney beans, and díaz beans. Soybeans. [...] Cream cheese. Sour cream. Fats and oils [place]. Beverages Soft drinks. Other foods Cakes and [...] provider. Document Revised: (more content not included)... [facility] Pre-Certification Formon Pre-Certification Form [id number] 1#1.00CD:127 [facility] Family Medicine Office/Clini c Noteon [...] visit we encourage proper diet and exercise orev-shm-xzaidmx MiraLAX or Colace with Preparation H anvq-ubx-njnhufj, bleeding has stopped, blood noted on toilet [...] Rectal exam was performed, I did offer motor driver but patient declined, external anus is normal [...] length of time on toilet, sitz bath's, zjsw-nrk-qdezozo medications and suppositories and creams Hydrocortisone lidocaine with applicator gel ordered today to use twice daily Referral for GI referral placed today Ordered: hydrocortisone-lidoc letty topical, 1 carmen, Rectal, BID, 60 EA, Refill(s) 1, [facility] 166, cm, 11/11/22 9:28:00 EDT, Height/Length Dosing, 59.4, kg, 11/11/22 9:28:00 EDT, Weight Dosing [facility] [place] 2. Hypothyroidism (E03.9: Hypothyroidism, [...] azelastine ophthalmic, (more content not included)... Normal [facility] Comment on above: Result Comment: Elec [...] serving. ? Talk with a diet and clinical trial specialist (dietitian) if you have questions about [...] [place] wheat. Millet. Quinoa. Bran muffins. Popcorn. [place] wafer crackers. Meats and other proteins [place], kidney, and díaz beans. Soybeans. Split peas. [...] Cream cheese. Sour cream. Fats and oils [place]. Beverages Soft drinks. Other foods Cakes and [...] 03/07/2006 Document Revised: 01/09/2018 Document Reviewed: 01/09/2018 SwiftPayMD(TM) by [employer] Patient Education ? 2019 [employer]. Gastroenterology H (more content not included)... Normal [facility] Ambulatory Visit Summaryon 0 10-08-2022 Ambulatory [...] Following Appointments Follow Up with Ya Wang, [facility], [facility] When: Comments: 6 mo f/u for hypothyroid, weight loss Where: [address], [facility] [address] [address]- Business (1) You Need to Complete the Following Anti-thyroid Abys, Blood, Routine collect, 10/08/22, Order for future visit, Lab Collect, Weight loss Invalid Interpretation Code Hypothyroidism [facility] Auto Diffon 10-08-2022 Basophils/100 WBC (Bld) 1.1 % Normal 0.0-2.0 [facility] Comment on above: Order Comment: Order Added by Discern Expert. Performed By: #### 2 275710, [id number], 63913012, 1152933, 1104668 ####[facility] [address] [place] [address] Basophils/Leukocytes Auto (Bld) [Pure # fraction] 0.1 E9/L Normal 0.0-0.2 [facility] Comment on above: Order Comment: Order Added by Discern Expert. Performed By: #### 2 528125, 29540264, 87446845, 0740805, 6786379 ####[facility] [address] [place] [address] Eosinophils/100 WBC (Bld) 1.2 % Normal 0.0-8.0 [facility] Comment on above: Order Comment: Order Added by Discern Expert. Performed By: #### 2 877409, 88821523, 24129555, 5335633, 4071547 ####[facility] [address] [place] [address] Eosinophils/Leukocyt es Auto (Bld) [Pure # fraction] 0.1 E9/L Normal 0.0-0.5 [facility] Comment on above: Order Comment: Order Added by Discern Expert. Performed By: #### 2 977808, 87313548, 12232858, 2928187, 0342023 ####[address] [place] [address] Lymphocytes/100 WBC (Bld) 41.0 % Normal 14.0-50.0 [facility] Comment on above: Order Comment: Order Added by Discern Expert. Performed By: #### 2 714616, 98684778, 20585333, 3764468, 7304327 ####[address] [address] Lymphocytes/Leukocyt es Auto (Bld) [Pure # fraction] 2.3 E9/L Normal 1.0-4.0 [facility] Comment on above: Order Comment: Order Added by Discern Expert. Performed By: #### 2 581808, 44558743, 00933434, 2029243, 7705916 ####[address] [address] Monocytes/100 WBC (Bld) 5.8 % Normal 4.0-14.0 [facility] Comment on above: Order Comment: Order Added by Discern Expert. Performed By: #### 2 746286, 82381316, 55572950, 0837911, 4174384 ####[address] [address] Monocytes/Leukocytes Auto (Bld) [Pure # fraction] 0.3 E9/L Normal 0.2-1.0 [facility] Comment on above: Order Comment: Order Added by Discern Expert. Performed By: #### 2 078355, 81520598, 69593378, 7508989, 0475226 ####[address] [address] Neutrophils/100 WBC (Bld) 50.9 % Normal 36.0-75.0 [facility] Comment on above: Order Comment: Order Added by Discern Expert. Performed By: #### 2 489269, 50704067, 95369920, 2374847, 2082522 ####[address] [place] [address] Neutrophils/Leukocyt es Auto (Bld) [Pure # fraction] 2.8 E9/L Normal 2.0-7.5 [facility] Comment on above: Order Comment: Order Added by Discern Expert. Performed By: #### 2 422165, 82604022, 11646798, 5097312, 3765078 ####[address] [address] CBC w/ Auto Diffon 3 Erythrocyte distribution width (RBC) [Ratio] 12.6 % Normal 10.9-14.2 [facility] Comment on above: Performed By: #### 2 032759, 13163803, 90406864, 5303784, 5451805 ####[address] [address] Hematocrit (Bld) [Volume fraction] 40.4 % Normal 34.0-46.0 [facility] Comment on above: Performed By: #### 2 514778, 97831141, 61907783, 1288452, 2871927 ####[address] [address] Hemoglobin (Bld) [Mass/Vol] 14.1 g/dL Normal 12.0-16.0 [facility] Comment on above: Performed By: #### 2 204873, 27873332, 91590225, 0940374, 5775683 ####[address] [address] MCH (RBC) [Entitic mass] 32.1 pg Normal 27.0-34.0 [facility] Comment on above: Performed By: #### 2 195096, 75118500, 82298562, 8649927, 2434935 ####[address] [place] [address] MCHC (RBC) [Mass/Vol] 34.8 g/dL Normal 31.4-36.0 [facility] Comment on above: Performed By: #### 2 770481, 64546817, 00157836, 5326033, 0295189 ####[facility] [address] [place] [address] MCV (RBC) [Entitic vol] 92.1 fL Normal 80.0-100.0 [facility] Comment on above: Performed By: #### 2 867128, 09684944, 96800678, 6841790, 6039920 ####[address] [address] Platelet mean volume (Bld) [Entitic vol] 9.1 fL Normal 6.4-10.8 [facility] Comment on above: Performed By: #### 2 762923, 17653055, 30436402, 3822637, 2775421 ####[facility] [address] [place] [address] Platelets (Bld) [#/Vol] 238.0 E9/L Normal 150.0-500.0 [facility] Comment on above: Performed By: #### 2 790267, 77689509, 77006139, 5525907, 3272225 ####[address] [address] RBC (Bld) [#/Vol] 4.4 E12/L Normal 4.3-5.9 [facility] Comment on above: Performed By: #### 2 221553, 18614708, 67740846, 6070519, 9584474 ####[facility] [address] [place] [address] WBC corrected for nucl RBC Auto (Bld) [#/Vol] 5.6 E9/L Normal 4.0-11.0 [facility] Comment on above: Performed By: #### 2 595352, 98892891, 72305307, 9753053, 1732745 ####[facility] [place] [address] CMPon 10-08-2022 Albumin [Mass/Vol] 4.7 g/dL Normal 3.3-5.0 [facility] Comment on above: Performed By: #### 2 024535, 28311313, 53524775, 5669907, 7734639 ####[address] [place] [address] Albumin/Globulin (S) [Mass conc ratio] 1.5 Normal 1.1-2.2 [facility] Comment on above: Performed By: #### 2 603537, 42502382, 14221549, 6813668, 2601601 ####[address] [place] [address] ALP [Catalytic activity/Vol] 42 Int._Unit/L Normal 21-98 [facility] Comment on above: Performed By: #### 2 451040, 05068230, 01774960, 3684809, 9841469 ####[facility] [address] [place] [address] ALT No additional P-5'-P [Catalytic activity/Vol] 15 Int._Unit/L Normal 6-46 [facility] Comment on above: Performed By: #### 2 974539, 02520984, 59629400, 6131501, 7241993 ####[facility] [address] [place] [address] Anion gap [Moles/Vol] 13 mmol/L Normal 6-16 [facility] Comment on above: Performed By: #### 2 788968, 98609138, 33113058, 4316903, 8874169 ####[facility] [address] [place] [address] AST [Catalytic activity/Vol] 22 Int._Unit/L Normal 5-43 [facility] Comment on above: Performed By: #### 2 659954, 13724253, 74887149, 2653510, 3324773 ####[facility] [address] [place] [address] Bilirubin [Mass/Vol] 0.5 mg/dL Normal 0.0-1.1 [facility] Comment on above: Performed By: #### 2 944606, 60368564, 53752382, 4053944, 0977277 ####[facility] [address] [place] [address] Calcium [Mass/Vol] 9.4 mg/dL Normal 8.9-11.1 [facility] Comment on above: Performed By: #### 2 228452, 93253535, 83646433, 4891266, 3788919 ####[facility] [address] [place] [address] Chloride [Moles/Vol] 107 mmol/L Normal 101-111 [facility] Comment on above: Performed By: #### 2 092292, 75798863, 44159885, 2965249, 1961145 ####[facility] [address] [place] [address] CO2 [Moles/Vol] 24 mmol/L Normal 21-31 [facility] Comment on above: Performed By: #### 2 563352, 83143995, 99207825, 8381890, 4656031 ####[facility] [address] [place] [address] Creatinine [Mass/Vol] 0.7 mg/dL Normal 0.5-1.3 [facility] Comment on above: Performed By: #### 2 005619, 71789869, 34896023, 7767878, 7465289 ####[facility] [address] [place] [address] Globulin (S) [Mass/Vol] 3.2 g/dL Normal 1.4-4.0 [facility] Comment on above: Performed By: #### 2 412343, 97004485, 87531202, 7696059, 4909456 ####[facility] [address] [place] [address] Glucose [Mass/Vol] 105 mg/dL Normal 55-199 [facility] Comment on above: Result Comment: If t his glucose result represents a fasting glucose, interpretation should refer to the following reference range: 55-99 mg/dL Performed By: #### 2 018591, 85499604, 85355425, 3943008, 6707828 ####[facility] [address] [place] [address] Potassium [Moles/Vol] 3.9 mmol/L Normal 3.5-5.3 [facility] Comment on above: Performed By: #### 2 083008, 64469402, 87390429, 2130568, 0859281 ####[facility] [address] [place] [address] Protein [Mass/Vol] 7.9 g/dL High 6.0-7.8 [facility] Comment on above: Performed By: #### 2 912665, 80777686, 36776052, 4915884, 6499574 ####[facility] [address] [place] [address] Sodium [Moles/Vol] 140 mmol/L Normal 135-145 [facility] Comment on above: Performed By: #### 2 559468, 69367379, 72475237, 9983198, 3286542 ####[facility] [address] [place] [address] Urea nitrogen [Mass/Vol] 17 mg/dL Normal 5-21 [facility] Comment on above: Performed By: #### 2 535847, 70410429, 53772433, 4166878, 5215919 ####[facility] [address] [place] [address] Urea nitrogen/Creatinine [Mass ratio] 24 No Units High 10-20 [facility] Comment on above: Performed By: #### 2 425589, 13082693, 37847499, 4973183, 8029336 ####[facility] [address] [place] [address] Consent for Treatmenton 09-19 Consent for Treatment [id number] #[id number] Normal [facility] Family Medicine Office/Clini c Noteon 10-08-2022 Family [...] Dr Marshall scheduled for nov 2022 Specialists: Call Center Agent: Bird Álvarez in [place]- contacts most of the time, Dentist: UTD - no issues- Dr Nila MARSHALL- [facility] Review of Systems PHQ [...] Pap testing and gynecologic 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 Discussed self breast exams and other health [...] and exercise increasing. Patient encouraged to use ctyk-shs-fscpzcl MiraLAX or Colace, encouraged Preparation H qtdd-vgh-codlslw topical treatments if needed. \ Follow-up only if needed. Patient only having minimal complaints 3. Constipation in female (K59.00: Constipation, unspecified) see #3 4. BMI 20.0-20.9, ad (more content not included)... Normal [facility] Comment on above: Result Comment: Elec [...] instructions at home: General instructions ? Take eylf-oml-cgoizgt and prescription medicines only as told by your health care provider. ? Monitor your blood glucose as told by your health care provider. ? If you drink alcohol: ? Limit how much you have to: ? 0?1 (more content not included)... Normal [facility] TSH With T4fr Reflexon 10-08 TSH Qn 0.58 m[IU]/L Normal 0.34-5.60 [facility] Comment on above: Performed By: #### 2 668538, 19364300, 81269292, 8623091, 3247854 ####[facility] [address] [place] [address] eGFRon 10-08-2022 GFR/1.73 sq M.predicted among non-blacks MDRD (S/P/Bld) [Vol rate/Area] 124 mL/min/1.73 m2 Normal >=59 [facility] Comment on above: Order Comment: Order added by Discern Expert. Result Comment: Float Tender erlin kidney disease could be indicated at eGFR's of less than 60 mL/min/1.73m2. Kidney failure is indicated at less than 15 mL/min/1.73m2. Performed By: #### 2 608281, 08128884, 36840250, 1856314, 2974204 ####[facility] [address] [place] [address] PAP ACOG PANEL 2: 21 to 29on 10-23-2021 . . Normal [facility] Comment on above: Performed By: #### C BC #### [facility] [address] [place] [address] Dr. Rima Charles Age Gdln ACOG Testing 21-29 [facility] Comment on above: Performed By: #### C BC #### [facility] [address] [place], [place] [address] Dr. Rima Charles DIAGNOSIS: Comment [facility] Comment on above: Result Comment: NEGA TIVE FOR INTRAEPITHELIAL LESION OR MALIGNANCY. THIS SPECIMEN WAS RESCREENED PART OF OUR ROTOFORMER BACKTENDER PROGRAM. Performed By: #### C BC #### [facility] [address] [place] [address] Dr. Rima Charles Methodology: Comment [facility] Comment on above: Result Comment: This liquid based ThinPrep(R) pap test was screened with the use of an image guided system. Performed By: #### C BC #### [facility] [address] [place] [address] Dr. Rima Charles Note: Comment [facility] Comment on above: Result Comment: The Pap smear is a screening test designed to aid in the detection of premalignant and malignant conditions of the uterine cervix. It is not a diagnostic procedure and should not be used as the sole means of detecting cervical cancer. Both false-positive and false-negative reports do occur. . Performed By: #### C BC #### [facility] [address] [place] [address] Dr. Rima Charles Performed by: Comment Normal [facility] Comment on above: Result Comment: Prince Cagle, Kerrick Kleaner Operator (ASCP) Performed By: #### C BC #### [facility] [address] [place] [address] Dr. Rima Charles QC reviewed by: Comment [facility] Comment on above: Result Comment: Amanda Morejon, Supervisory Kerrick Kleaner Operator (ASCP) Performed By: #### C BC #### [facility] [address] [place] [address] Dr. Rima Charles Reflex Criteria: Comment Normal [facility] Comment on above: Result Comment: The HPV DNA reflex criteria were not met with this specimen result therefore, no HPV testing was performed. . Performed By: #### C BC #### [facility] [address] [address] [address] Rima Charles Specimen adequacy: Comment Normal [facility] Comment on above: Result Comment: Sati sfactory for evaluation. Endocervical and/or squamous metaplastic cells (endocervical component) are present. Areas of partially obscuring blood are present. Performed By: #### C BC #### [facility] [address] [address] [address] Rima Charles FREE T4on 10-17-2021 Free T4 [Mass/Vol] 1.01 ng/dL Normal 0.76-1.46 [facility] Comment on above: Performed By: #### F T4 #### [facility] [address] [place] [address] Dr. Rima Charles TSHon 10-17-2021 TSH 4.997 uIU/mL Critically high 0.358-3.740 [facility] Comment on above: Performed By: #### T SH #### [facility] [address] [place] [address] Dr. Rima Charles VAGINITIS/VAGINOSIS DNA PROB Esteban 07-15-2021 Tamara species Negative Normal Negative [facility] Comment on above: Performed By: #### C BC #### [facility] [address] [place] [address] Dr. Rima Charles Gardnerella vaginalis Negative Normal Negative [facility] Comment on above: Performed By: #### C BC #### [facility] [address] [place] [address] Dr. Rima Charles Trichomonas vaginalis Negative Normal Negative [facility] Comment on above: Performed By: #### C BC #### [facility] [address] [place] [address] Dr. Rima Charles CHLAMYDIA/GONOCOCCUS FRANSISCO (SW AB/URINE/PAPon 05-09-2021 Chlamydia trachomatis, FRANSISCO Negative Normal Negative [facility] Comment on above: Performed By: #### C BC #### [facility] [address] [address] [address] Rima Charles Neisseria gonorrhoeae, FRANSISCO Negative Normal Negative [facility] Comment on above: Performed By: #### C BC #### [facility] [address] [address] [address] Rima Charles VAGINITIS/VAGINOSIS DNA PROB Esteban 05-08-2021 Tamara species Negative Normal Negative [facility] Comment on above: Performed By: #### V AGINT #### [facility] [address] [address] [address] Rima Charles Gardnerella vaginalis Negative Normal Negative [facility] Comment on above: Performed By: #### V AGINT #### [facility] [address] [place] [address] Dr. Rima Charles Trichomonas vaginalis Negative Normal Negative [facility] Comment on above: Performed By: #### V AGINT #### [facility] [address] [address] [address] Rima Charles TSHon 02-24-2021 TSH 4.494 uIU/mL Normal 0.470-4.680 [facility] Comment on above: Performed By: #### C BC #### [facility] [address] [place] [address] Dr. Rima Charles TSH RANGE SEE BELOW Normal [facility] Comment on above: Result Comment: <0.3 4 UIU/ml HYPERTHYROID 0.34-5.60 UIU/ml EUTHYROID >5.60 UIU/ml HYPOTHYROID Performed By: #### C BC #### [facility] [address] [place] [address] Dr. Rima Charles AFP MATERNAL FOR SPINA BIFID Aon 2021 AFP MoM 0.98 Normal [facility] Comment on above: Performed By: #### A FPMAT #### [facility] [address] [place] [address] Dr. Rima Charles AFP Value 36.3 ng/mL Normal [facility] Comment on above: Performed By: #### A FPMAT #### [facility] [address] [address] [address] Rima Charles AFP, Serum for Spina Bifida Report Normal [facility] Comment on above: Performed By: #### A FPMAT #### [facility] [address] [address] [address] Rima Charles Comment Comment Normal [facility] Comment on above: Result Comment: Kelly Moon, Ph.D., [facility] Director . References: Available Upon Request. . Multiples Of Median Cutoffs For AFP Elevations Murphy 2.5 Black 2.8 IDD 2.0 Twins 4.5 Abbreviation Definitions IDD - Insulin Dep Diabetes OSBR - Open Spina Bifida Risk . For further inquiries contact [employer] [facility] at [phone]. Performed By: #### A FPMAT #### [facility] [address] [place] [address] Dr. Rima Charles Gest Age Collection Date 16.0 weeks Normal [facility] Comment on above: Performed By: #### A FPMAT #### [facility] [address] [address] [address] Rima Charles Gestat, Age Based on LMP Normal [facility] Comment on above: Result Comment: Reca lculations are not recommended when gestational dating by LMP and ultrasound are within 10 days. Performed By: #### A FPMAT #### [facility] [address] [place] [address] Dr. Rima Charles Insulin Dep Diabetes No Normal [facility] Comment on above: Performed By: #### A FPMAT #### [facility] [address] [place] [address] Dr. Rima Charles Interpretation Comment Normal [facility] Comment on above: Result Comment: Inte [...] Customer Services to discuss available options. The [employer] recommends amniocentesis be offered to women age 35 and older. Performed By: #### A FPMAT #### [facility] [address] [address] [address] Rima Charles [age] Normal [facility] Comment on above: Performed By: #### A FPMAT #### [facility] [address] [place] [address] Dr. Rima Charles Multiple Gestation No Normal [facility] Comment on above: Performed By: #### A FPMAT #### [facility] [address] [place] [address] Dr. Rima Charles [place] [address] Normal [facility] Comment on above: Performed By: #### A FPMAT #### [facility] [address] [place] [address] Dr. Rima Charles PDF . Normal [facility] Comment on above: Performed By: #### A FPMAT #### [facility] [address] [place] [address] Dr. Rima Charles Race Normal [facility] Comment on above: Performed By: #### A FPMAT #### [facility] [address] [place] [address] Dr. Rima Charles Test Results: Negative Normal [facility] Comment on above: Performed By: #### A FPMAT #### [facility] [address] [place] [address] Dr. Rima Charles HEP B SURFACE ANTIGEN SCREEN on 12-10-2020 HBsAg Screen Negative Normal Negative [facility] Comment on above: Performed By: #### H BSANS #### [facility] [address] [place] [address] Dr. Rima Charles HEPATITIS C ANTIBODYon 12-10 Hep C Virus Ab <0.1 Normal 0.0-0.9 [facility] Comment on above: Result Comment: Nega tive: < 0.8 Indeterminate: 0.8 - 0.9 Positive: > 0.9 . The CDC recommends that a positive HCV antibody result be followed up with a HCV Nucleic Acid Amplification test (200567). Performed By: #### H CV #### [facility] [address] [place] [address] Dr. Rima Charles HIV 1 AND 2 WITH REFLEXon HIV Screen 4th Generation wRfx Non-Reactive Normal Non Reactive [facility] Comment on above: Performed By: #### H IV12 #### [facility] [address] [place] [address] Dr. Rima Charles RPR QUANTon 12-10-2020 Rapid Plasma Reagin, Quant Non-Reactive Normal NonRea<1:1 [facility] Comment on above: Performed By: #### C BC #### [facility] [address] [place] [address] Dr. Rima Charles RUBELLA AB IGGon 12-10-2020 Rubella Antibodies, IgG 2.33 index Normal Immune >0.99 [facility] Comment on above: Result Comment: Non- immune <0.90 Equivocal 0.90 - 0.99 Immune >0.99 Performed By: #### R UBIGG #### [facility] [address] [place] [address] Dr. Rima Charles CBC AUTO DIFFon 12-09-2020 BASO # 0.0 103/ul Normal 0.0-0.1 [facility] Comment on above: Performed By: #### C BC #### [facility] [address] [place] [address] Dr. Rima Charles Basophils/100 WBC (Bld) 0.4 % Normal 0.2-2.0 [facility] Comment on above: Performed By: #### C BC #### [facility] [address] [place] [address] Dr. Rima Charles EO # 0.0 103/ul Normal 0.0-0.7 [facility] Comment on above: Performed By: #### C BC #### [facility] [address] [place] [address] Dr. Rima Charles Eosinophils/100 WBC (Bld) 0.6 % Critically low 0.9-7.0 [facility] Comment on above: Performed By: #### C BC #### [facility] [address] [place] [address] Dr. Rima Charles Erythrocyte distribution width (RBC) [Ratio] 12.0 % Normal 11.0-15.0 [facility] Comment on above: Performed By: #### C BC #### [facility] [address] [place] [address] Dr. Rima Charles Hematocrit (Bld) [Volume fraction] 37.5 % Normal 36.0-48.0 [facility] Comment on above: Performed By: #### C BC #### [facility] [address] [place] [address] Dr. Rima Charles Hemoglobin (Bld) [Mass/Vol] 13.2 g/dL Normal 12.0-16.0 [facility] Comment on above: Performed By: #### C BC #### [facility] [address] [place] [address] Dr. Rima Charles IG # 0.02 10e3/ul Normal 0.00-0.03 [facility] Comment on above: Performed By: #### C BC #### [facility] [address] [place] [address] Dr. Rima Charles IG % 0.3 % Normal 0.0-0.5 [facility] Comment on above: Performed By: #### C BC #### [facility] [address] [place] [address] Dr. Rima Charles LYMPH # 1.4 103/ul Normal 1.2-3.8 [facility] Comment on above: Performed By: #### C BC #### [facility] [address] [place] [address] Dr. Rima Charles Lymphocytes/100 WBC (Bld) 20.2 % Critically low 20.5-60.0 [facility] Comment on above: Performed By: #### C BC #### [facility] [address] [place] [address] Dr. Rima Charles MANUAL DIFF REQ NO Normal [facility] Comment on above: Performed By: #### C BC #### [facility] [address] [place] [address] Dr. Rima Charles MCH (RBC) [Entitic mass] 33.2 pg Normal 26.7-34.0 [facility] Comment on above: Performed By: #### C BC #### [facility] [address] [place] [address] Dr. Rima Charles MCHC (RBC) [Mass/Vol] 35.2 g/dL Normal 29.9-35.2 [facility] Comment on above: Performed By: #### C BC #### [facility] [address] [place] [address] Dr. Rima Charles MCV (RBC) [Entitic vol] 94.5 fL Normal 81.0-99.0 [facility] Comment on above: Performed By: #### C BC #### [facility] [address] [place] [address] Dr. Rima Charles MONO # 0.4 103/ul Normal 0.3-0.8 [facility] Comment on above: Performed By: #### C BC #### [facility] [address] [place] [address] Dr. Rima Charles Monocytes/100 WBC (Bld) 6.1 % Normal 1.7-12.0 [facility] Comment on above: Performed By: #### C BC #### [facility] [address] [place] [address] Dr. Rima Charles NEUT # 5.1 103/ul Normal 1.4-6.5 [facility] Comment on above: Performed By: #### C BC #### [facility] [address] [place] [address] Dr. Rima Charles Neutrophils/100 WBC (Bld) 72.4 % Normal 43.0-75.0 [facility] Comment on above: Performed By: #### C BC #### [facility] [address] [place] [address] Dr. Rima Charles Platelet mean volume (Bld) [Entitic vol] 11.2 fL Normal 9.5-13.5 [facility] Comment on above: Performed By: #### C BC #### [facility] [address] [address] [address] Rima Charles PLT 221 103/ul Normal 150-450 [facility] Comment on above: Performed By: #### C BC #### [facility] [address] [address] [address] iRma Charles RBC 3.97 106/ul Critically low 4.20-5.40 [facility] Comment on above: Performed By: #### C BC #### [facility] [address] [address] [address] Rima Charles WBC 7.1 103/ul Normal 4.0-11.0 [facility] Comment on above: Performed By: #### C BC #### [facility] [address] [address] [address] Rima Charles CULTURE URINEon 12-09-2020 CULTURE URINE Culture Observations: No growth Normal [facility] Comment on above: Performed By: #### C BC #### [facility] [address] [address] [address] Rima Charles GLYCOHEMOGLOBIN A1Con 2020 ADA RECOMMENDATION ADA THERAPEUTIC TARGET 6.0 - 7.0 ACTION SUGGESTED > 7.0 Normal [facility] Comment on above: Performed By: #### A 1C #### [facility] [address] [place] [address] Dr. Rima Charles Glucose [Mass/Vol] 111 mg/dL Normal [facility] Comment on above: Performed By: #### A 1C #### [facility] [address] [address] [address] Rima Charles HbA1c (Bld) [Mass fraction] 5.5 % Normal <=6.0 [facility] Comment on above: Performed By: #### A 1C #### [facility] [address] [place] [address] Dr. Rima Charles TAHIR BOX TEST PT SEND OUTo n 12-09-2020 SENT TO REF LAB 12/09/20 Normal [facility] Comment on above: Performed By: #### C BC #### [facility] [address] [address] [address] Rima Charles TSHon 12-09-2020 TSH 2.651 uIU/mL Normal 0.470-4.680 [facility] Comment on above: Performed By: #### C BC #### [facility] [address] [address] [address] Rima Charles TSH RANGE SEE BELOW Normal [facility] Comment on above: Result Comment: <0.3 4 UIU/ml HYPERTHYROID 0.34-5.60 UIU/ml EUTHYROID >5.60 UIU/ml HYPOTHYROID Performed By: #### C BC #### [facility] [address] [address] [address] Rima Charles TYPE AND SCREENon 12-09-2020 TYPE AND SCREEN Negative Normal [facility] Comment on above: Performed By: #### C BC #### [facility] [address] [place] [address] Dr. Rima Charles US PREG TVon 12-02-2020 [...] by: LILIANE POPE Date: 2020-12-02 09:34 Normal [facility] Vital Signs Date Time Vital Sign Value Performing Clinician Facility 12-10-2024 10:0400 Body mass index (BMI) [Ratio] 24.79 kg/m2 Erum HAYS Work Phone: [facility] 12-10-2024 10:23-0400 Body weight 67.59 kg Erum HAYS Work Phone: [facility] 12-10-2024 10:23-0400 Diastolic blood pressure 70 mm[Hg] Erum HAYS Work Phone: [facility] 12-10-2024 10:23-0400 Systolic blood pressure 120 mm[Hg] Erum HAYS Work Phone: [facility] 11-12-2024 11:45-0400 Body mass index (BMI) [Ratio] 23.15 kg/m2 Santosh Joanna DO Work Phone: [facility] 11-12-2024 11:45-0400 Body weight 63.1 kg Santosh Joanna DO Work Phone: [facility] 11-12-2024 11:45-0400 Diastolic blood pressure 72 mm[Hg] Santosh Joanna DO Work Phone: [facility] 11-12-2024 11:45-0400 Systolic blood pressure 110 mm[Hg] Santosh Joanna DO Work Phone: [facility] 11-05-2024 11:51-0400 Body height 165.1 cm Jacklyn Campos MD Work Phone: [facility] 11-05-2024 11:51-0400 Body mass index (BMI) [Ratio] 23.03 kg/m2 Jacklyn Campos MD Work Phone: [facility] 11-05-2024 11:51-0400 Body weight 62.78 kg Jacklyn Campos MD Work Phone: [facility] 11-05-2024 11:51-0400 Diastolic blood pressure 58 mm[Hg] Jacklyn Campos MD Work Phone: [facility] 11-05-2024 11:51-0400 Heart rate 94 /min Jacklyn Campos MD Work Phone: [facility] 11-05-2024 11:51-0400 Systolic blood pressure 94 mm[Hg] Jacklyn Campos MD Work Phone: [facility] 10-15-2024 10:13-0400 Body mass index (BMI) [Ratio] 22.38 kg/m2 Erum HAYS Work Phone: [facility] 10-15-2024 10:13-0400 Body weight 61.01 kg Erum Guidry PA Work Phone: [facility] 10-15-2024 10:13-0400 Diastolic blood pressure 70 mm[Hg] Erum Guidry PA Work Phone: [facility] 10-15-2024 10:13-0400 Systolic blood pressure 118 mm[Hg] Erum Guidry PA Work Phone: [facility] 09-17-2024 11:10-0400 Body mass index (BMI) [Ratio] 22.1 kg/m2 Santosh Joanna DO Work Phone: [facility] 09-17-2024 11:10-0400 Body weight 60.24 kg Santosh Joanna DO Work Phone: [facility] 09-17-2024 11:10-0400 Diastolic blood pressure 70 mm[Hg] Santosh Joanna DO Work Phone: [facility] 09-17-2024 11:10-0400 Systolic blood pressure 112 mm[Hg] Santosh Joanna DO Work Phone: [facility] 08-17-2024 10:00-0400 Body mass index (BMI) [Ratio] 22.86 kg/m2 [facility] Nurse [facility] 08-17-2024 10:00-0400 Body weight 62.32 kg [facility] Nurse [facility] 08-17-2024 10:00-0400 Diastolic blood pressure 78 mm[Hg] Noms Nurse [facility] 08-17-2024 10:00-0400 Systolic blood pressure 120 mm[Hg] [facility] Nurse [facility] 12-12-2023 14:19-0400 Body mass index (BMI) [Ratio] 21.15 kg/m2 Santosh Joanna DO Work Phone: [facility] 12-12-2023 14:19-0400 Body weight 57.66 kg Santosh Joanna DO Work Phone: [facility] 12-12-2023 14:19-0400 Diastolic blood pressure 62 mm[Hg] Santosh Joanna DO Work Phone: [facility] 12-12-2023 14:19-0400 Systolic blood pressure 104 mm[Hg] Santosh Joanna DO Work Phone: [facility] 08-08-2023 15:43-0400 Blood Pressure Location Ya Thornton [facility] 08-08-2023 15:43-0400 Diastolic blood pressure 60 mm[Hg] Ya Thornton [facility] 08-08-2023 15:43-0400 Heart rate 103 /min Ya Thornton [facility] 08-08-2023 15:43-0400 Respiratory rate 18 /min Ya Thornton [facility] 08-08-2023 15:43-0400 SaO2% (BldA) [Mass fraction] 100 % Ya Thornton [facility] 08-08-2023 15:43-0400 Systolic blood pressure 124 mm[Hg] Ya Thornton [facility] 03-09-2023 07:21-0500 Blood Pressure Location Ya Thornton [facility] 03-09-2023 07:21-0500 Body temperature 97.52 [degF] aY Thornton [facility] 03-09-2023 07:21-0500 Diastolic blood pressure 60 mm[Hg] Ya Thornton [facility] 03-09-2023 07:21-0500 Heart rate 91 /min Ya Thornton [facility] 03-09-2023 07:21-0500 Respiratory rate 18 /min Ya Thornton [facility] 03-09-2023 07:21-0500 SaO2% (BldA) [Mass fraction] 100 % Ya Thornton [facility] 03-09-2023 07:21-0500 Systolic blood pressure 108 mm[Hg] Ya Thornton [facility] 02-21-2023 12:53-0500 Blood Pressure Location Ya Thornton [facility] 02-21-2023 12:53-0500 Diastolic blood pressure 72 mm[Hg] Ya Thornton [facility] 02-21-2023 12:53-0500 Heart rate 103 /min Ya Thornton [facility] 02-21-2023 12:53-0500 Respiratory rate 18 /min Ya Thornton [facility] 02-21-2023 12:53-0500 SaO2% (BldA) [Mass fraction] 99 % Ya Thornton [facility] 02-21-2023 12:53-0500 Systolic blood pressure 110 mm[Hg] Ya Thornton [facility] 11-30-2022 12:10-0400 Blood Pressure Location Agueda Howez [facility] 11-30-2022 12:10-0400 Body temperature 97.52 [degF] Agueda Gray [facility] 11-30-2022 12:10-0400 Diastolic blood pressure 70 mm[Hg] Agueda Gray [facility] 11-30-2022 12:10-0400 Heart rate 97 /min Agueda Gray [facility] 11-30-2022 12:10-0400 Systolic blood pressure 105 mm[Hg] Agueda Gray [facility] 11-11-2022 09:20-0400 Blood Pressure Location Ya Thornton [facility] 11-11-2022 09:20-0400 Body temperature 98.06 [degF] Ya Thornton [facility] 11-11-2022 09:20-0400 Diastolic blood pressure 62 mm[Hg] Ya Thornton [facility] 11-11-2022 09:20-0400 Heart rate 76 /min Ya Thornton [facility] 11-11-2022 09:20-0400 SaO2% (BldA) [Mass fraction] 98 % Ya Thornton [facility] 11-11-2022 09:20-0400 Systolic blood pressure 112 mm[Hg] Ya Thornton [facility] 05-03-2022 14:14-0500 Blood Pressure Location Ritu Desai [facility] 05-03-2022 14:14-0500 Body temperature 97.7 [degF] Ritu Desai [facility] 05-03-2022 14:14-0500 Diastolic blood pressure 62 mm[Hg] Ritu Desai [facility] 05-03-2022 14:14-0500 Heart rate 71 /min Ritu Desai [facility] 05-03-2022 14:14-0500 SaO2% (BldA) [Mass fraction] 98 % Ritu Desai [facility] 05-03-2022 14:14-0500 Systolic blood pressure 118 mm[Hg] Ritu Desai [facility] 2021 02:06-0400 Body weight 58.[address] SANTOSH MARSHALL [facility] Comment on above: Performed By: #### AFPMAT #### [facility] [address] [place] [address] Dr. Rima Charles Encounters Encounter Date Encounter Type Care Provider Facility Start: 01-07-2025 ambulatory Marta Almanzar [facility] lity:[facility] Start: 12-10-2024 End: 12-10-2024 Bamboo flowsheet Erum HAYS Work Phone: [facility] Start: 12-10-2024 End: 12-10-2024 Bamboo flowsheet Erum HAYS Work Phone: [facility] Start: 12-10-2024 End: 12-10-2024 flow sheet Erum HAYS Work Phone: [facility] Comment on above: Size of fetus incons istent with dates in second trimester ([facility]) (Primary Dx); Second trimester ([facility]); 25 weeks gestation of ([facility]); Diabetes mellitus screening Start: 12-10-2024 End: 12-10-2024 ambulatory ERUM GUIDRY Not Available Start: 11-27-2024 End: 11-27-2024 ambulatory SANTOSH R JOANNA [facility] Start: 11-20-2024 End: 11-20-2024 ambulatory SANTOSH R JOANNA [facility] Start: 11-12-2024 End: 11-12-2024 Bamboo flowsheet Santosh Joanna DO Work Phone: [facility] Start: 11-12-2024 End: 11-12-2024 Bamboo flowsheet Santosh Joanna DO Work Phone: [facility] Start: 11-12-2024 End: 11-12-2024 flow sheet Santosh Joanna DO Work Phone: [facility] Comment on above: Hypothyroidism, unsp ecified type (Primary Dx); Second trimester ([facility]); 21 weeks gestation of ([facility]); Vaginal discharge; STD exposure Start: 11-12-2024 End: 11-12-2024 ambulatory SANTOSH JOANNA Not Available Start: 11-07-2024 End: 11-07-2024 Clinisync Result Encounter Santosh Joanna DO Work Phone: [facility] External Department Unsolicited Start: 11-07-2024 End: 11-07-2024 Clinisync Result Encounter Santosh Joanna DO Work Phone: [facility] External Department Unsolicited Start: 11-06-2024 End: 11-06-2024 Orders Only Ayaka Smith RN [facility] Comment on above: Hypothyroidism affec ting in second trimester (Primary Dx); History of prior with IUGR ; History of premature rupture of membranes Start: 11-05-2024 End: 11-05-2024 Office consultation new/estab patient 60 min Jacklyn Campos MD Work Phone: [facility] Comment on above: 20 weeks gestation o f (Primary Dx); Low-lying placenta; 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 trimester; History of prior with IUGR ; Family history of autism; History of gestational diabetes in prior , currently ; History of prior with short cervix, currently ; History of premature rupture of membranes Start: 11-05-2024 End: 11-05-2024 ambulatory SANTOSH R [facility] Start: 10-15-2024 End: 10-15-2024 Bamboo flowsheet Erum HAYS Work Phone: [facility] Start: 10-15-2024 End: 10-17-2024 Bamboo flowsheet Erum HAYS Work Phone: [facility] Start: 10-15-2024 End: 10-17-2024 Clinisync Result Encounter Erum HAYS Work Phone: [facility] External Department Unsolicited Start: 10-15-2024 End: 10-15-2024 flow sheet Erum HAYS Work Phone: [facility] Comment on above: Second trimester pre gnancy ([facility]); 17 weeks gestation of ([facility]) Start: 10-15-2024 End: 10-15-2024 ambulatory ERUM GUIDRY Not Available Start: 10-02-2024 End: 10-02-2024 Clinisync Result Encounter Santosh Joanna DO Work Phone: [facility] External Department Unsolicited Start: 10-02-2024 End: 10-02-2024 Clinisync Result Encounter Santosh Joanna DO Work Phone: [facility] External Department Unsolicited Start: 09-24-2024 End: 09-24-2024 Chart abstracting Jacklyn Campos MD Work Phone: [facility] Start: 09-24-2024 End: 09-26-2024 Clinisync Result Encounter Santosh Joanna DO Work Phone: [facility] External Department Unsolicited Start: 09-24-2024 End: 09-26-2024 Clinisync Result Encounter Santosh Joanna DO Work Phone: [facility] External Department Unsolicited Start: 09-20-2024 End: 09-20-2024 Orders Only Irene Gutierrez RN [facility] Comment on above: Thyroid disease affe cting [...] on above: 13 weeks gestation o f ([facility]); Second trimester ([facility]); Thyroid disease ; History of prior [...] Start: 07-09-2024 End: 07-09-2024 ambulatory Marta Almanzar Facility:[facility] Start: 07-05-2024 End: 07-05-2024 ambulatory Ham Robins Facility:[facility] Start: 07-04-2024 End: 07-04-2024 ambulatory Marta Almanzar [facility] Start: 07-04-2024 End: 07-04-2024 Patient encounter procedure Marta Almanzar [facility] Start: 05-14-2024 End: 05-14-2024 ambulatory CARMITA JURADO [facility] Start: 05-14-2024 End: 05-14-2024 Subsequent hospital [...] End: 09-07-2023 ambulatory Ya Thornton Facility[facility] Start: 09-07-2023 End: 09-07-2023 Patient encounter procedure Ya Thornton [facility] Start: 08-08-2023 End: 08-08-2023 ambulatory Ya Thornton Facility:[facility] Start: 08-08-2023 End: 08-08-2023 Patient encounter procedure Ya Thornton [facility] Start: 07-12-2023 End: 07-12-2023 ambulatory OPAL OAKLEYRY Facility:[facility] Start: 07-12-2023 End: 07-12-2023 Patient encounter procedure OPAL OAKLEYRY [facility] Start: 05-16-2023 End: 05-16-2023 ambulatory Ya Thornton Facility[facility] Start: 05-16-2023 End: 05-16-2023 ambulatory Ya Thornton Facility:[facility] Start: 04-01-2023 ambulatory Ya Thornton Facilit y:[facility] Start: 03-24-2023 End: 03-24-2023 ambulatory Ya Thornton Facility[facility] Start: 03-24-2023 End: 03-24-2023 Patient encounter procedure Ya Thornton [facility] Start: 03-22-2023 End: 03-22-2023 ambulatory Ya Thornton Facility[facility] Start: 03-22-2023 End: 03-22-2023 Patient encounter procedure Ya Thornton [facility] Start: 03-09-2023 End: 03-09-2023 Lab Drop off Ya Thornton [facility] Start: 03-09-2023 End: 03-09-2023 ambulatory Ya Thornton Facility[facility] Start: 03-09-2023 End: 03-09-2023 Patient encounter procedure Ya Thornton [facility] Start: 02-21-2023 End: 02-21-2023 Lab Drop off Ya Thornton [facility] Start: 02-21-2023 End: 02-21-2023 ambulatory Ya Thornton Facility[facility] Start: 02-21-2023 End: 02-21-2023 Patient encounter procedure Ya Thornton [facility] Start: 11-30-2022 End: 11-30-2022 ambulatory Agueda Gray Facility:[facility] Start: 11-30-2022 End: 11-30-2022 Patient encounter procedure Agueda Gray [facility] Start: 11-11-2022 [facility]ulatory [facility] Start: 11-11-2022 End: 11-11-2022 ambulatory Ya Thornton Facility:[facility] Start: 11-11-2022 End: 11-11-2022 Patient encounter procedure Ya Thornton [facility] Start: 10-08-2022 End: 10-08-2022 ambulatory Ya Thornton Facility[facility] Start: 10-08-2022 End: 10-08-2022 ambulatory Ya Thornton Facility:[facility] Start: 05-03-2022 End: 05-03-2022 Patient encounter procedure Ritu Jaimes Desai [facility] Start: 10-19-2021 End: 10-19-2021 [...] Date Procedure Procedure Detail Performing Clinician Start: 12-10-2024 Urnls dip stick/tabl et rgnt non-auto w/o micrscp Erum HAYS Work Phone: Start: 11-12-2024 Urnls dip stick/tabl et rgnt non-auto w/o micrscp Santosh Joanna DO Work Phone: Start: 11-07-2024 ALL THYROID STIM HORMONE Santosh Joanna DO Work Phone: Start: 10-15-2024 AFP, SERUM, OPEN SPI NA BIFIDA Erum HAYS Work Phone: Start: 10-15-2024 Urnls dip stick/tabl et rgnt non-auto w/o micrscp Santosh Joanna DO Work Phone: Start: 10-02-2024 GLUCOSE 1 HOUR Santosh Fa zio DO Work Phone: Start: 09-24-2024 ALL MISCELLANEOUS TEST Santosh Bhaktao DO Work Phone: Start: 09-12-2024 ALL MISCELLANEOUS TEST Santosh Bhaktao DO Work Phone: Start: 08-21-2024 Antibody screen Heriberto Campos MD Work Phone: Start: 08-21-2024 CBC W Auto Different ial panel - Blood Santosh Marshall DO Work Phone: Start: 08-21-2024 Drug scrn 1+ class nonchromo Not In System Ref Prov Start: 08-21-2024 Hemoglobin glycosylated a1c Santosh Marshall DO Work Phone: Start: 08-21-2024 Hepatitis c [...] 08-21-2024 ALL CBC WITH AUTO DIFF Santosh Marshall DO Work Phone: Start: 08-17-2024 End: 08-17-2024 Urnls dip stick/tablet rgnt non-auto w/o micrscp Santosh Marshall DO Work Phone: Start: 12-12-2023 IGP,APTIMA HPV,AGE GDLN Santosh Marshall DO Work Phone: Start: 06-04-2021 Adult depression scr eening assessment Jacklyn Campos MD Work Phone: None (qualifier value) Lawson Desai Plan of Treatment Date Care Activity Detail Author Start: 05-27-2031 DTaP,Tdap and Td Vaccines (8 - Td or Tdap) DTaP,Tdap and Td Vaccines (8 - Td or Tdap) [facility] Start: 11-06-2025 End: 11-06-2025 US MFM with or without consult US MFM with or without consult Imaging Routine 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 trimester History of prior with IUGR History of premature rupture of membranes Expected: 11/06/2025 (Approximate), Expires: 11/06/2025 [employer] Work Phone: Comment on above: Expected: 11/06/2025 (Approximate), Expires: 11/06/2025 Start: 11-05-2025 Adult BMI Screening Adult BMI Screen ing [facility] Start: 11-05-2025 Tobacco Screening Tobacco Screening [facility] Start: 01-01-2025 End: 01-01-2025 Patient encounter procedure [facility] Start: 12-31-2024 End: 12-31-2024 Patient encounter procedure 12/31/2024 11:00 AM EDT Routine [facility] [address] [place] [id number] Santosh Marshall, DO [address] [place] [address] [facility] Start: 12-31-2024 End: 12-31-2024 Professional / ancillary services management 12/31/2024 10:30 AM EDT Ancillary Procedure [facility] [address] [place] [id number] [facility] Start: 12-17-2024 End: 12-17-2024 Patient encounter procedure 12/17/2024 3:00 PM EDT Office Visit [facility] [address] [place] [phone] Santosh Marshall, DO [address] [place] [address] [facility] Start: 12-11-2024 End: 12-11-2024 Patient encounter procedure 12/11/2024 2:15 PM EDT Appointment [facility] - Ultrasound [address] [place] [address] [facility] Start: 12-10-2024 End: 12-10-2025 CBC panel - Blood by Automated count CBC Lab Routine Diabetes mellitus screening Expected: 12/10/2024 (Approximate), Expires: 12/10/2025 [facility] Work Phone: Comment on above: Expected: 12/10/2024 (Approximate), Expires: 12/10/2025 Start: 12-10-2024 End: 12-10-2025 Measurement of glucose 1 hour after glucose challenge for glucose tolerance test Glucose tolerance, 1 hour Lab Routine Diabetes mellitus screening Expected: 12/10/2024 (Approximate), Expires: 12/10/2025 [facility] Comment on above: Expected: 12/10/2024 (Approximate), Expires: 12/10/2025 Start: 12-10-2024 End: 04-11-2025 US for US OB follow up transabdominal approach Imaging Routine Size of fetus inconsistent with dates in second trimester ([facility]) Expected: 12/10/2024, Expires: 04/11/2025 [facility] Comment on above: Expected: 12/10/2024 , Expires: 04/11/2025 Start: 12-10-2024 End: 12-10-2024 Patient encounter procedure UMESH FUENTES Comment on above: Arrived Start: 11-27-2024 End: 11-27-2024 Patient encounter procedure 11/27/2024 3:15 PM EDT Appointment [facility] - Ultrasound [address] [place] [address] [facility] Start: 11-20-2024 End: 11-20-2024 Patient encounter procedure 11/20/2024 3:45 PM EDT Appointment [facility] [address] [place] [address] [facility] Start: 11-19-2024 Influenza vaccination Influenza Vacc ine [facility] Start: 11-12-2024 End: 11-12-2024 Patient encounter procedure [facility] Comment on above: Arrived Start: 11-05-2024 End: 11-05-2024 Patient encounter procedure [facility] - M US Imaging Start: 10-21-2024 End: 09-20-2025 US [facility] with or without consult US [facility] with or without consult Imaging Routine Thyroid disease affecting History of prior with IUGR Expected: 10/21/2024 (Approximate), Expires: 09/20/2025 [facility] Work Phone: Comment on above: Expected: 10/21/2024 (Approximate), Expires: 09/20/2025 Start: 10-15-2024 End: 12-16-2024 Alpha fetoprotein, maternal Alpha fetoprotein, maternal Lab Routine 17 weeks gestation of ([facility]) Expected: 10/15/2024 (Approximate), Expires: 12/16/2024 [facility] [...] AM EDT Routine [facility] [address] [place] [id number] Santosh Marshall DO [address] [place] [address] [facility] Start: 08-17-2024 End: 08-17-2025 ABO/Rh ABO/Rh Lab Routine Missed menses , unspecified gestational age Expected: 08/17/2024 (Approximate), Expires: 08/17/2025 [facility] Comment on above: Expected: 08/17/2024 (Approximate), Expires: 08/17/2025 Start: 08-17-2024 End: 08-17-2025 Blood type and Indirect antibody screen panel - Blood Type and screen Lab Routine Missed menses , unspecified gestational age Expected: 08/17/2024 (Approximate), Expires: 08/17/2025 [facility] Comment on above: Expected: 08/17/2024 (Approximate), Expires: 08/17/2025 Start: 08-17-2024 End: 08-17-2025 Drugs of abuse panel - Urine by Screen method Rapid drug screen, urine Lab Routine , unspecified gestational age Encounter for supervision of normal first in first trimester Expected: 08/17/2024 (Approximate), Expires: 08/17/2025 [facility] Comment on above: Expected: 08/17/2024 (Approximate), Expires: 08/17/2025 Start: 08-09-2024 End: 11-09-2024 US Pelvis transvaginal US OB transvaginal Imaging Routine Missed menses Expected: 08/09/2024, Expires: 11/09/2024 [facility] Work Phone: Comment on above: Expected: 08/09/2024 , Expires: 11/09/2024 Start: 11-20-2023 COVID-19 (2023-04 5 season) COVID-19 ( season) [facility] Start: 11-20-2023 FLU (#1) FLU (#1) [facility] Start: 06-04-2022 Depression Screening Depression Scre [facility] Start: 01-19-2022 ambulatory Ambulatory Facility:H 1 Start: 2019 Microscopic observat ion [Identifier] in Cervix by Cyto stain Pap Smear [facility] Start: 2019 Screening for malign ant neoplasm of cervix Pap Smear [facility] Start: 2017 Hepatitis B (1 of 3 - 19+ 3-dose series) Hepatitis B (1 of 3 - 19+ 3-dose series) [facility] Start: 01-16-2016 Adult BMI Screening Adult BMI Screen ing [facility] Start: 2014 MenB (1 of 2 - MenB 2-Dose Series Bexsero) MenB (1 of 2 - MenB 2-Dose Series Bexsero) [facility] Start: 2013 HPV (1 - 3-dose series) HPV (1 - 3-d ose series) [facility] Start: 2011 Varicella (1 of 2 - 13+ 2-dose series) Varicella (1 of 2 - 13+ 2-dose series) [facility] Start: 2010 Tobacco Screening Tobacco Screening [facility] Start: 2005 Tetanus Diphtheria a nd Pertussis Vaccines (1 - Tdap) Tetanus Diphtheria and Pertussis Vaccines (1 - Tdap) [facility] Start: 1999 MMR (1 of 1 - Standa rd series) MMR (1 of 1 - Standard series) [facility] Bacteria identified in Urine by Culture Urine culture Microbiology Routine Missed menses Ordered: 08/17/2024 [facility] Comment on above: Ordered: 08/17/2024 CBC W Auto Different ial panel - Blood CBC and differential Lab Routine Missed menses , unspecified gestational age Ordered: 08/17/2024 [facility] Comment on above: Ordered: 08/17/2024 CHLAMYDIA TRACHOMATI S (GENITO/STI) CHLAMYDIA TRACHOMATIS (GENITO/STI) Lab Routine STD exposure Ordered: 11/12/2024 [facility] Comment on above: Ordered: 11/12/2024 Cytology Cervical or vaginal smear or scraping study Pap Smear Pathology and Cytology Routine Well woman exam with routine gynecological exam Ordered: 12/12/2023 [facility] Work Phone: Comment on above: Ordered: 12/12/2023 End: 05-14-2024 DNA Extraction and hold [facility] Work Phone: Comment on above: 1 Occurrences starti ng 05/14/2024 until 05/14/2024, 1 completed Hemoglobin A1c/Hemoglobin.total in Blood Hemoglobin A1c Lab Routine Missed menses , unspecified gestational age Ordered: 08/17/2024 [facility] Comment on above: Ordered: 08/17/2024 Hepatitis B virus surface Ag [Presence] in Serum or Plasma by Immunoassay Hepatitis B surface antigen Lab Routine Missed menses , unspecified gestational age Ordered: 08/17/2024 [facility] Comment on above: Ordered: 08/17/2024 Hepatitis C virus Ab [Presence] in Serum or Plasma by Immunoassay Hepatitis C antibody Lab Routine Missed menses , unspecified gestational age Ordered: 08/17/2024 [facility] Comment on above: Ordered: 08/17/2024 HIV-1/HIV-2 antigen/antibody combination immunoassay HIV-1 and HIV-2 antibodies Lab Routine Missed menses , unspecified gestational age Ordered: 08/17/2024 [facility] Comment on above: Ordered: 08/17/2024 Neisseria gonorrhoea e DNA [Presence] in Unspecified specimen by FRANSISCO with probe detection Neisseria gonorrhea DNA probe, direct Lab Routine STD exposure Ordered: 11/12/2024 [facility] Comment on above: Ordered: 11/12/2024 Reagin Ab [Presence] in Serum by RPR RPR Lab Routine Missed menses , unspecified gestational age Ordered: 08/17/2024 [facility] Comment on above: Ordered: 08/17/2024 Rubella antibody, IgG Rubella an tibody, IgG Lab Routine Missed menses , unspecified gestational age Ordered: 08/17/2024 [facility] Comment on above: Ordered: 08/17/2024 SURESWAB(R) ADVANCED VAGINITIS PLUS, TMA SURESWAB(R) ADVANCED VAGINITIS PLUS, TMA Pathology and Cytology Routine Vaginal discharge Ordered: 11/12/2024 [facility] Work Phone: Comment on above: Ordered: 11/12/2024 Thyrotropin [Units/volume] in Serum or Plasma TSH Lab Routine Missed menses , unspecified gestational age Encounter for supervision of normal first in first trimester Ordered: 08/17/2024 [facility] Comment on above: Ordered: 08/17/2024 End: 11-12-2025 Thyrotropin [Units/volume] in Serum or Plasma TSH Lab Routine Hypothyroidism, unspecified type 9 Occurrences starting 11/12/2024 until 11/12/2025 [facility] Work Phone: Comment on above: 9 Occurrences starti ng 11/12/2024 until 11/12/2025 US Pelvis transvaginal US OB tra nsvaginal Imaging Routine Missed menses 08/17/2024 9:27 AM EDT [facility] Immunizations Immunization Date Immunization Notes Care Provider Fa cility 05-26-2021 tetanus toxoid, reduced diphtheria toxoid, and acellular pertussis vaccine, adsorbed Ya Thornton [facility] 10-21-2015 meningococcal B vaccine, fully recombinant Ya Thornton [facility] 09-15-2015 meningococcal ACWY vaccine, unspecified formulation Ya Thornton [facility] 09-15-2015 meningococcal B vaccine, fully recombinant Ya Thornton [facility] 06-22-2010 meningococcal ACWY vaccine, unspecified formulation Ya Thornton [facility] 06-22-2010 tetanus toxoid, reduced diphtheria toxoid, and acellular pertussis vaccine, adsorbed Ya Tohrnton [facility] 01-30-2009 influenza virus vaccine, unspecified formulation Jacklyn Campos MD Work Phone: [facility] 10-16-2003 DTaP, unspecified formulation Ya Thornton [facility] 10-16-2003 measles, mumps and rubella virus vaccine Ya Thornton [facility] 10-16-2003 poliovirus vaccine, unspecified formulation Ya Thornton [facility] 02-03-2000 DTaP, unspecified formulation Ya Thornton [facility] 01-26-1999 measles, mumps and rubella virus vaccine Ya Thornton [facility] 01-26-1999 varicella virus vaccine Ya Thornton [facility] 1998 DTaP, unspecified formulation Ya Thornton [facility] 1998 DTaP, unspecified formulation Ya Thornton [facility] 1998 DTaP, unspecified formulation Ya Thornton [facility] 1998 hepatitis B vaccine, pediatric or pediatric/adolescent dosage Ya Thornton [facility] NEGATED: Highlighted row has not occurred!11-29-2022 influenza virus vaccine, unspecified formulation Agueda Gray [facility] NEGATED: Highlighted row has not occurred!05-03-2022 influenza virus vaccine, unspecified formulation Ritu Desai [facility] Payers Date Payer Category Payer [facility] er [id number] 2024 [employer] Александр Jaeger Managed Care - PPO [id number] 2023 Unknown [id number] 2023 Unknown [id number] 2023 Unknown 2023 Unknown [id number] 2022 Private Health Insurance [id number] 2022 Medicaid [facility] [id number] 2019 Managed Care Other (unspecified) [employer] [id number] 1998 Unknown [id number] 2.16.840.1.561950.3.579.2. 593 1998 Unknown [id number] .16.840.1.272770.3.579.2. 593 1998 Unknown [id number] 2.16.840.1.500445.3.579.2. 593 1998 Unknown [id number] 2.16.840.1.626989.3.579.2. 593 1998 Unknown [id number] 2.16.840.1.595205.3.579.2. 593 1998 Unknown [id number] 2.16.840.1.412968.3.579.2. 593 1998 Unknown [id number] 2.16.840.1.253165.3.579.2. 593 1998 Unknown [id number] 2.16.840.1.490730.3.579.2. 593 1998 Unknown [id number] 2.16840.1.978992.3.579.2. 593 1998 Unknown [id number] 2.16.840.1.104368.3.579.2. 593 1998 Unknown [id number] 2.16.840.1.654239.3.579.2. 727 1998 Unknown [id number] 2.16.840.1.875155.3.579.2. 727 1998 Unknown [id number] 2.16.840.1.343844.3.579.2. 727 1998 Unknown [id number] 2.16.840.1.200113.3.579.2. 727 1998 Unknown [id number] 2.16.840.1.465311.3.579.2. 727 1998 Unknown [id number] 2.16.840.1.758261.3.579.2. 727 1998 Unknown [id number] 2.16.840.1.814254.3.579.2. 727 1998 Unknown [id number] 2.16.840.1.407144.3.579.2. 727 1998 Unknown [id number] 2.16.840.1.882401.3.579.2. 727 1998 Unknown [id number] 2.16.840.1.881756.3.579.2. 727 1998 Unknown [id number] 2.16.840.1.258365.3.579.2. 727 1998 Unknown [id number] 2.16.840.1.922654.3.579.2. 727 1998 Unknown [id number] 2.16.840.1.480837.3.579.2. 727 1998 Unknown [id number] 2.16.840.1.166153.3.579.2. 727 1998 Unknown [id number] 2.16.840.1.125393.3.579.2. 727 1998 Unknown [id number] 2.16.840.1.563572.3.579.2. 727 1998 Unknown [id number] 2.16.840.1.643904.3.579.2. 479 1998 Unknown [id number] 2.16.840.1.041894.3.579.2. 727 1998 Unknown [id number] 2.16.840.1.225743.3.579.2. 727 1998 Unknown [id number] 2.16.840.1.039299.3.579.2. 727 1998 Unknown [id number] 2.16.840.1.579580.3.579.2. 727 1998 Unknown [id number] 2.16.840.1.487508.3.579.2. 727 1998 Unknown [id number] 2.16.840.1.617897.3.579.2. 727 1998 Unknown [id number] 2.16.840.1.499546.3.579.2. 727 1998 Unknown [id number] 2.16.840.1.087219.3.579.2. 1286 1998 Unknown [id number] 2.16.840.1.479961.3.579.2. 1286 1998 Unknown [id number] 2.16.840.1.845476.3.579.2. 1286 1998 Unknown [id number] 2.16.840.1.313183.3.579.2. 1286 1998 Unknown [id number] 2.16.840.1.060664.3.579.2. 1259 1998 Unknown [id number] 2.16.840.1.113179.3.579.2. 1259 1998 Unknown [id number] 2.16.840.1.035673.3.579.2. 1259 1998 Unknown [id number] 2.16.840.1.234436.3.579.2. 1259 1998 Unknown [id number] 2.16.840.1.466588.3.579.2. 1259 1998 Unknown [id number] 2.16.840.1.821673.3.579.2. 1259 1998 Unknown [id number] 2.16.840.1.959770.3.579.2. 1259 1959 Self-pay 1959 Unknown [id number] 1959 Unknown [id number] 1959 Unknown [id number] Unknown [id number] 2.16.840.1.192489.3.579.2. 593 Social History Date Type Detail Facility Start: 05-03-2022 End: 11-17-2022 Tobacco smoking status Never smoked tobacco (finding) [facility] Tobacco smoking status Never Jr [facility] Start: 07-12-2023 End: 12-12-2023 Sex Assigned At Female [facility] Start: 12-12-2023 End: 09-17-2024 Alcoholic beverage intake Current drinker of alcohol (finding) [facility] Start: 07-12-2023 End: 12-12-2023 History of Social function [facility] Start: 11-17-2022 Alcohol Comment occasional alcohol u se [facility] Start: 1998 Sex assigned at Not on file N [facility] Tobacco smoking stat [facility] Tobacco smoking consumption unknown [facility] Sexual Orientation [facility] Start: 07-02-2009 End: 12-03-2020 Sex Female (finding) [facility] Start: 06-30-2024 [facility] Start: 12-23-2020 Tobacco use and exposure Smokeless tobacco non-user [facility] [employer] Start: 09-24-2024 End: 11-05-2024 Alcoholic beverage intake Ex-drinker (finding) [facility] The thought of richard ponce myself has occurred to me Never [facility] Medical Equipment Procedure Code Equipment Code Equipment Origin al Text Equipment Identifier Dates Glucose Test Str ips, See Instructions, 1 EA, 3, Glucose Test Strips, [employer] [facility] [employer] [facility], Supply, 166, cm, 10/08/22 15:10:00 EDT, Height/Length Dosing, 57.8, kg, 10/08/22 15:10:00 EDT, Weight Dosing Start: 10-08-2022 Lancets, See Instructions, 100 lancet(s), 3, Lancets, [employer] [employer] [facility], Supply, 166, cm, 10/08/22 15:10:00 EDT, Height/Length Dosing, 57.8, kg, 10/08/22 15:10:00 EDT, Weight Dosing Start: 10-08-2022 Glucose Test Str ips, See Instructions, 1 EA, 3, Glucose Test Strips, [facility] [employer] [facility], Supply, 166, cm, 10/08/22 15:10:00 EDT, Height/Length Dosing, 57.8, kg, 10/08/22 15:10:00 EDT, Weight Dosing Start: 10-08-2022 Lancets, See Instructions, 100 lancet(s), 3, Lancets, [facility] [facility], Supply, 166, cm, 10/08/22 15:10:00 EDT, Height/Length Dosing, 57.8, kg, 10/08/22 15:10:00 EDT, Weight Dosing Start: 10-08-2022 Glucose Test Str ips, See Instructions, 1 EA, 3, Glucose Test Strips, [facility], Supply, 166, cm, 10/08/22 15:10:00 EDT, Height/Length Dosing, 57.8, kg, 10/08/22 15:10:00 EDT, Weight Dosing Start: 10-08-2022 Lancets, See Instructions, 100 lancet(s), 3, Lancets, [facility], Supply, 166, cm, 10/08/22 15:10:00 EDT, Height/Length Dosing, 57.8, kg, 10/08/22 15:10:00 EDT, Weight Dosing Start: 10-08-2022 Glucose Test Str ips, See Instructions, 1 EA, 3, Glucose Test Strips, [facility], Supply, 166, cm, 10/08/22 15:10:00 EDT, Height/Length Dosing, 57.8, kg, 10/08/22 15:10:00 EDT, Weight Dosing Start: 10-08-2022 Lancets, See Instructions, 100 lancet(s), 3, Lancets, [facility], Supply, 166, cm, 10/08/22 15:10:00 EDT, Height/Length Dosing, 57.8, kg, 10/08/22 15:10:00 EDT, Weight Dosing Start: 10-08-2022 Glucose Test Str ips, See Instructions, 1 EA, 3, Glucose Test Strips, [facility], Supply, 166, cm, 10/08/22 15:10:00 EDT, Height/Length Dosing, 57.8, kg, 10/08/22 15:10:00 EDT, Weight Dosing Start: 10-08-2022 Lancets, See Instructions, 100 lancet(s), 3, Lancets, [facility], Supply, 166, cm, 10/08/22 15:10:00 EDT, Height/Length Dosing, 57.8, kg, 10/08/22 15:10:00 EDT, Weight Dosing Start: 10-08-2022 Glucose Test Str ips, See Instructions, 1 EA, 3, Glucose Test Strips, [facility], Supply, 166, cm, 10/08/22 15:10:00 EDT, Height/Length Dosing, 57.8, kg, 10/08/22 15:10:00 EDT, Weight Dosing Start: 10-08-2022 Lancets, See Instructions, 100 lancet(s), 3, Lancets, [facility], Supply, 166, cm, 10/08/22 15:10:00 EDT, Height/Length Dosing, 57.8, kg, 10/08/22 15:10:00 EDT, Weight Dosing Start: 10-08-2022 Glucose Test Str ips, See Instructions, 1 EA, 3, Glucose Test Strips, [facility], Supply, 166, cm, 10/08/22 15:10:00 EDT, Height/Length Dosing, 57.8, kg, 10/08/22 15:10:00 EDT, Weight Dosing Start: 10-08-2022 Lancets, See Instructions, 100 lancet(s), 3, Lancets, [facility], Supply, 166, cm, 10/08/22 15:10:00 EDT, Height/Length Dosing, 57.8, kg, 10/08/22 15:10:00 EDT, Weight Dosing Start: 10-08-2022 Glucose Test Str ips, See Instructions, 1 EA, 3, Glucose Test Strips, [facility], Supply, 166, cm, 10/08/22 15:10:00 EDT, Height/Length Dosing, 57.8, kg, 10/08/22 15:10:00 EDT, Weight Dosing Start: 10-08-2022 Lancets, See Instructions, 100 lancet(s), 3, Lancets, [facility], Supply, 166, cm, 10/08/22 15:10:00 EDT, Height/Length Dosing, 57.8, kg, 10/08/22 15:10:00 EDT, Weight Dosing Start: 10-08-2022 Glucose Test Str ips, See Instructions, 1 EA, 3, Glucose Test Strips, [facility], Supply, 166, cm, 10/08/22 15:10:00 EDT, Height/Length Dosing, 57.8, kg, 10/08/22 15:10:00 EDT, Weight Dosing Start: 10-08-2022 Lancets, See Instructions, 100 lancet(s), 3, Lancets, [facility], Supply, 166, cm, 10/08/22 15:10:00 EDT, Height/Length Dosing, 57.8, kg, 10/08/22 15:10:00 EDT, Weight Dosing Start: 10-08-2022 Glucose Test Str ips, See Instructions, 1 EA, 3, Glucose Test Strips, [facility], Supply, 166, cm, 10/08/22 15:10:00 EDT, Height/Length Dosing, 57.8, kg, 10/08/22 15:10:00 EDT, Weight Dosing Start: 10-08-2022 Lancets, See Instructions, 100 lancet(s), 3, Lancets, [facility], Supply, 166, cm, 10/08/22 15:10:00 EDT, Height/Length Dosing, 57.8, kg, 10/08/22 15:10:00 EDT, Weight Dosing Start: 10-08-2022 Glucose Test Str ips, See Instructions, 1 EA, 3, Glucose Test Strips, [facility], Supply, 166, cm, 10/08/22 15:10:00 EDT, Height/Length Dosing, 57.8, kg, 10/08/22 15:10:00 EDT, Weight Dosing Start: 10-08-2022 Lancets, See Instructions, 100 lancet(s), 3, Lancets, [facility], Supply, 166, cm, 10/08/22 15:10:00 EDT, Height/Length Dosing, 57.8, kg, 10/08/22 15:10:00 EDT, Weight Dosing Start: 10-08-2022 Glucose Test Str ips, See Instructions, 1 EA, 3, Glucose Test Strips, [employer] #37, Supply, 166, cm, 10/08/22 15:10:00 EDT, Height/Length Dosing, 57.8, kg, 10/08/22 15:10:00 EDT, Weight Dosing Start: 10-08-2022 Lancets, See Instructions, 100 lancet(s), 3, Lancets, [employer] #37, Supply, 166, cm, 10/08/22 15:10:00 EDT, Height/Length Dosing, 57.8, kg, 10/08/22 15:10:00 EDT, Weight Dosing Start: 10-08-2022 Use daily as directed & as needed Start: 03-26-2021 Functional Status Date Assessment Result Facility 08-08-2023 Functional Status N/A [facility] 03-09-2023 Functional Status N/A [facility] 02-21-2023 Functional Status N/A [facility] 11-30-2022 Functional Status N/A [facility] 11-11-2022 Functional Status N/A [facility] 05-03-2022 Functional Status N/A [facility] Clinical Notes 05-03-2022 to 12-10-2024 LIS Man - 12/10/2024 10:00 AM Filippo Stone NP - 11/12/2024 11:10 AM Virginia Salazar RN - 11/05/2024 1:00 PM Yohana Campos MD - 11/05/2024 1:00 PM ED[facility]aboratory[facility]atory Note Date & Type Note Facility 12-10-2024 History of Present illness Narrative Reason for [...] Vitals: Estimated body mass index is 24.79 kg/m as calculated from the following: Height as of 11/29/22: 5' 5 . Weight as of this encounter: 149 lb. BP: 120/70 Patient's last menstrual period was 06/16/2024. ASSESSMENT & PLAN ICD-10-CM 1. Second trimester ([facility]) Z34.92 POCT urinalysis dipstick manually resulted 2. 25 weeks gestation of ([facility]) Z3A.25 3. Diabetes mellitus screening Z13.1 [...] of: LIS Man documented in this encounter [facility] 11-12-2024 History of Present illness Narrative Reason for Appointment: Patient ID: Yana Church is a 24 y.o. female who presents for STI Screening and Routine Visit Patient presents today for Return [...] nursing note reviewed. Exam conducted with a motor driver present. Vitals: Estimated body mass index is 23.15 kg/m as calculated from the following: Height as of 11/29/22: 5' 5 . Weight as of this encounter: 139 lb 1.9 oz. BP: 110/72 Patient's last menstrual period was 06/16/2024. ASSESSMENT & PLAN ICD-10-CM 1. Second trimester ([facility]) Z34.92 POCT urinalysis dipstick manually resulted 2. 21 weeks gestation of ([facility]) Z3A.21 POCT urinalysis dipstick manually resulted 3. Vaginal discharge N89.8 SURESWAB(R) ADVANCED VAGINITIS PLUS, TMA 4. STD exposure Z20.2 CHLAMYDIA TRACHOMATIS (GENITO/STI) Neisseria gonorrhea DNA probe, direct Return OB: Patient presents today for a routine obstetrics appointment. Patient is currently 21w2d . Patient states she is doing well but has complaints of being tired due to current . Patient has verbalizes frequent movement. labor precautions was discussed/given and patient was instructed to perform kick counts three times a day. Orders Placed This Encounter Procedures CHLAMYDIA TRACHOMATIS (GENITO/STI) Neisseria gonorrhea DNA probe, direct TSH POCT urinalysis dipstick manually resulted Follow Up: Patient is to return to office in 4 week for routine OB appointment. Will continue to monitor TSH every 4 weeks; She is followed closely per [facility] with history of hypothyroidism. Will obtain growth ultrasounds every 4 weeks and begin NST/BPP at 32 weeks. Documented by Abril Stone NP on behalf of: Santosh Mrashall DO documented in this encounter [facility] 11-05-2024 History of Present illness Narrative Headache/epigastric [...] risk Have you been seen here at [facility] in a previous ? Recent ER visits or hospitalizations? No Bring blood sugar log or meter with you today? (Please bring them with you for every visit at [facility]) NA Flu vaccine (Jan-May)? NA Any [...] Jacklyn Campos MD, FACOG (she/hers) Maternal- Medicine [facility] [address] [facility] [address] [place] [address] This document was created with [employer] technology. Though I make every effort to review the dictation as it is transcribed, on occasion the spoken word can be misinterpreted by the technology leading to inappropriate words, phrases, or sentences. This note is addressed to the requesting provider as a consultation for clinical guidance. Specific medical abbreviations are occasionally used and those are generally approved by the [place]?Board of?Obstetrics and?Gynecology?as well as?Lucy s abbreviations. The above plan of care was based solely on the diagnoses for which a consultation was requested. ?More frequent testing may be indicated based on her other medical/obstetrical conditions. The management of other or medical conditions is beyond the scope of requested consultation and will continue to be followed by the primary clinical systems educator or primary care provider. Note to patient: [...] of the practitioner. documented in this encounter [facility] 10-15-2024 History of Present illness Narrative Reason [...] ASSESSMENT & PLAN ICD-10-CM 1. Second trimester ([facility]) Z34.92 2. 17 weeks gestation of ([facility]) Z3A.17 POCT urinalysis dipstick manually resulted Alpha [...] of: LIS Man documented in this encounter [facility] 09-17-2024 History of Present illness Narrative Reason [...] nursing note reviewed. Exam conducted with a motor driver present. Vitals: Estimated body mass index is 22.1 kg/m as calculated from the following: Height as of 11/29/22: 5' 5 . Weight as of this encounter: 132 lb 12.8 oz. BP: 112/70 Patient's last menstrual period was 06/16/2024. ASSESSMENT & PLAN ICD-10-CM 1. 13 weeks gestation of ([facility]) Z3A.13 2. Second trimester ([facility]) Z34.92 3. Thyroid disease E07.9 levothyroxine [...] or undercooked meat, and [facility] away [facility]. Patient has been consulted regarding any further do's and don'ts of . Patient voiced understanding and all questions and concerns were answered. Pt has h/o IUGR, thyroid disease, pt being referred to [facility] for level II ultrasound. Pt should be taking 125mcg of levothyroxine. Pt voiced understanding. Pt to start baby aspirin. Orders Placed This Encounter Procedures Glucose tolerance, 1 hour Follow Up: Patient is to return in 4 weeks for routine OB appointment. Documented by Aliya Jeronimo LPN on behalf of: Santosh Marshall DO documented in this encounter [facility] 08-17-2024 History of Present illness Narrative Reason [...] or undercooked meat, and stay away [facility]. Patient has also been advised to not change litter boxes and eat 6 small meals a day. Patient has been consulted regarding the do's and don'ts of . Patient was given labs and all questions and concerns were answered. Patient was sent in Magnesium for headaches. Patient given [place] labs to do with initial labs along [...] Carmita Tapia LPN documented in this encounter [facility] 07-09-2024 Note Patient Education Endocrinology Hypothyroidism Hypothyroidism [...] Follow these instructions at home: ??? Take rkqq-gpk-tpjioph and prescription medicines only as told by [...] provider. Document Revised: 03/09/2022 Document Reviewed: 03/09/2022 Elsevier Patient Education ? 2023 SwiftPayMD(TM) by [employer] Obstetrics and Gynecology Health Maintenance, Female Adopting a healthy lifestyle and getting preventive care are important in promoting health and wellness. Ask your health care provider about: ??? The right schedule for you to have regular tests and exams. ??? Things (more content not included)... [facility] 07-05-2024 Note Patient Education ENT How [...] cannot use soap and water, use hand wool scourer. 2. Wash your device using the directions [...] provider. Document Revised: 08/24/2021 Document Reviewed: 08/24/2021 SwiftPayMD(TM) by [employer] Patient Education ? 2023 ClickFacts. Infectious Disease Sinus Infection, Adult A sinus [...] diagnosed? Your s (more content not included)... [facility] 12-12-2023 History of Present illness Narrative Reason for Appointment: Patient ID: Yana Church is a 23 y.o. female who presents for [facility] Women Visit Patient presents today for Annual Exam. MEDICATIONS Current Outpatient Medications Medication Instructions levothyroxine (SYNTHROID, LEVOXYL) 112 mcg, Oral, Daily ALLERGIES No Known Allergies PROBLEMS Active Ambulatory Problems Diagnosis Date Noted No Active Ambulatory Problems Resolved Ambulatory Problems Diagnosis Date Noted No Resolved Ambulatory Problems Past Medical History: Diagnosis Date BMI 23.0-23.9, adult Thyroid disease ([facility]/HCC) Well woman exam HISTORY PAST MEDICAL HISTORY SOCIAL HISTORY Past Medical History: Diagnosis Date BMI 23.0-23.9, adult Thyroid disease ([facility]/H[facility]) Well woman exam Social History Tobacco Use [...] nursing note reviewed. Exam conducted with a motor driver present. Vitals: Estimated body mass index is [...] Santosh Marshall DO documented in this encounter [facility] 08-08-2023 Hospital Discharge instructions Patient Education 08/08/2023 [...] to help relieve pain. General instructions Take lcui-rid-tvhzwmn and prescription medicines only as told by [...] provider. Document Revised: 10/22/2020 Document Reviewed: 10/22/2020 SwiftPayMD(TM) by [employer] Patient Education 2022 [employer]. 08/08/2023 16:25:44 Hemorrhoids Hemorrhoids Hemorrhoids are swollen [...] 3 times a day. General instructions Take trvo-sgo-dhknidg and prescription medicines only as told by [...] provider. Document Revised: 09/16/2021 Document Reviewed: 09/16/2021 SwiftPayMD(TM) by [employer] Patient Education 2022 [employer]. 08/08/2023 16:25:43 Urinary Tract Infection, Adult Urinary [...] Treatment for this condition includes: Antibiotic medicine. Ksrq-lun-ypwgggf medicines to treat discomfort. Drinking enough water [...] Follow these instructions at home: Medicines Take wnxg-qdf-jblfvwo and prescription medicines only as told by [...] provider. Document Revised: 10/17/2020 Document Reviewed: 10/17/2020 SwiftPayMD(TM) by [employer] Patient Education 2022 [employer]. 08/08/2023 16:25:41 Hypothyroidism Hypothyroidism Hypothyroidism is when [...] away. Follow these instructions at home: Take cvdb-dyz-lcvsdgg and prescription medicines only as told by [...] provider. Document Revised: 03/09/2022 Document Reviewed: 03/09/2022 SwiftPayMD(TM) by [employer] Patient Education 2022 ClickFacts. [facility] 08-08-2023 Evaluation + Plan note Future Scheduled TestsUA with Cult Rflx 08/08/23CBC w/ Auto Diff 02/08/24Comprehensive Metabolic Panel 02/08/24Thyroid Stimulating Hormone 02/08/24Thyroid Stimulating Hormone 05/16/23Free T4 02/08/24Free T4 05/16/23 [facility] 03-09-2023 Hospital Discharge instructions [...] including vitamins, herbs, eye drops, creams, and iyix-zrs-omxdvjg medicines. ?Whether you are or may be [...] provider. Document Revised: 11/18/2021 Document Reviewed: 10/10/2020 SwiftPayMD(TM) by [employer] Patient Education 2022 ClickFacts. 03/09/2023 08:08:48 Urinary Tract Infection, Adult Urinary [...] Treatment for this condition includes: Antibiotic medicine. Kagg-yac-moqkiqn medicines to treat discomfort. Drinking enough water [...] Follow these instructions at home: Medicines Take dabf-aby-ekjvwcd and prescription medicines only as told by [...] provider. Document Revised: 10/17/2020 Document Reviewed: 10/17/2020 SwiftPayMD(TM) by [employer] Patient Education 2022 [employer]acts. 03/09/2023 08:08:46 Hypothyroidism Hypothyroidism Hypothyroidism is when [...] away. Follow these instructions at home: Take hgsv-nrn-agjpxza and prescription medicines only as told by [...] provider. Document Revised: 03/09/2022 Document Reviewed: 03/09/2022 SwiftPayMD(TM) by [employer] Patient Education 2022 ClickFacts. Follow Up Care 03/07/2023 12:06:45 With:Ya Wang [facility], [facility] Address: [address], [address] [facility] [address] [place] [address]- Business (1) When:05/25/2023 Comments:for f/u [facility] 02-21-2023 Hospital Discharge instructions [...] Follow these instructions at home: Medicines Take mbge-xuf-zjciqyl and prescription medicines only as told by [...] provider. Document Revised: 10/17/2020 Document Reviewed: 10/17/2020 SwiftPayMD(TM) by [employer] Patient Education 2022 ClickFacts. Follow Up Care 02/21/2023 08:19:47 With:Ya Wang FAM, [facility] Address: [address] [place] [address] [place] [id number] [facility] (1) When:05/25/2023 Comments:for f/u [facility] 11-30-2022 Hospital Discharge instructions [...] Bulgur wheat. Millet. Quinoa. Bran muffins. Popcorn. Mar Lin wafer crackers. Meats and other proteins [place] beans, kidney beans, and díaz beans. Soybeans. [...] Cream cheese. Sour cream. Fats and oils [place]. Beverages Soft drinks. Other foods Cakes and [...] provider. Document Revised: 07/10/2020 Document Reviewed: 07/10/2020 SwiftPayMD(TM) by [employer] Patient Education 2022 ClickFacts. Follow Up Care 11/11/2022 12:10:41 With:Agueda Gray CNP Address: When:2 weeks Comments:Following EGD/Colonoscopy. [facility] 11-11-2022 Hospital Discharge instructions [...] per serving. Talk with a diet and clinical trial specialist (dietitian) if you have questions about [...] Bulgur wheat. Millet. Quinoa. Bran muffins. Popcorn. Mar Lin wafer crackers. Meats and other proteins [place], kidney, and díaz beans. Soybeans. Split peas. [...] Cream cheese. Sour cream. Fats and oils [place]. Beverages Soft drinks. Other foods Cakes and [...] 03/07/2006 Document Revised: 01/09/2018 Document Reviewed: 01/09/2018 SwiftPayMD(TM) by [employer] Patient Education 2020 ClickFacts. 11/11/2022 01:00:54 Hemorrhoids Hemorrhoids Hemorrhoids are swollen [...] 3 times a day. General instructions Take gmuk-qca-khcrrzb and prescription medicines only as told by [...] provider. Document Revised: 09/16/2021 Document Reviewed: 09/16/2021 SwiftPayMD(TM) by [employer] Patient Education 2022 ClickFacts. Follow Up Care 11/08/2022 14:59:04 With:Ya Wang FAM, [facility] Address: [address], [facility] [address] [place] [phone]- Business (1) When:Within 3 Month(s) Comments:3 mo f/u [facility] 05-03-2022 Hospital Discharge instructions [...] away. Follow these instructions at home: Take agzl-iwk-fzvxade and prescription medicines only as told by [...] 03/07/2006 Document Revised: 02/17/2018 Document Reviewed: 02/15/2018 SwiftPayMD(TM) by [employer] Patient Education 2020 ClickFacts. Follow Up Care 04/05/2022 12:35:49 With:Ritu Desai CNP Address: [address] [place] [phone] When:1 year Comments:or sooner if needed. [facility] Evaluation + Plan note No data available for this section [facility] Evaluation + Plan note Future Appointments Appointment Date:11/30/2022 12:00:00 PM Scheduled Provider:Agueda Gray CNP [facility] Appointment Type:BAD New Patient Appointment Date:04/04/2023 01:00:00 PM Scheduled Provider:Ya Wang Location:[facility] Appointment Type: Open Future Scheduled TestsTSH With T4fr Reflex 10/08/22 [facility] Evaluation + Plan note Future Appointments Appointment Date:04/04/2023 01:00:00 PM Scheduled Provider:Ya Wang Location:[facility] Appointment Type:FM Open Future Scheduled TestsTSH With T4fr Reflex 10/08/22 [facility] Evaluation + Plan note Future Appointments Appointment Date:07/25/2023 10:00:00 AM Scheduled Provider:Ya Wang Location:[facility] Appointment Type:FM Open Future Scheduled TestsT3 Free 02/21/23Thyroid Stimulating Hormone 02/21/23Free T4 02/21/23 [facility] Evaluation + Plan note Future Appointments Appointment Date:07/25/2023 10:00:00 AM Scheduled Provider:Ya Wang Location:[facility] Appointment Type:FM Open Diagnostic Tests PendingUrine Culture 02/21/23 Future Scheduled TestsT3 Free 02/21/23Thyroid Stimulating Hormone 02/21/23Free T4 02/21/23 [facility] Evaluation + Plan note Future Appointments Appointment Date:07/25/2023 10:00:00 AM Scheduled Provider:Ya Wang Location:[facility] Appointment Type:FM Open Future Scheduled TestsT3 Free 02/21/23Thyroid Stimulating Hormone 02/21/23Free T4 02/21/23US Retroperitoneal Complete 03/09/23 [facility] Evaluation + Plan note Future Appointments Appointment Date:07/25/2023 10:00:00 AM Scheduled Provider:Ya Wang Location:[facility] Appointment Type:FM Open Diagnostic Tests PendingUrine Culture 03/09/23 Future Scheduled TestsT3 Free 02/21/23Thyroid Stimulating Hormone 02/21/23Free T4 02/21/23US Retroperitoneal Complete 03/09/23 [facility] Evaluation + Plan note Future Appointments Appointment Date:07/12/2023 09:30:00 AM Scheduled Provider:OPAL LUZ PA-C [facility] Appointment Type:URO New Patient Appointment Date:07/25/2023 10:00:00 AM Scheduled Provider:Ya Wang Location:[facility] Appointment Type:FM Open Diagnostic Tests PendingT3 Free 1/2/24 [facility] Evaluation + Plan note Future Appointments Appointment Date:07/12/2023 09:30:00 AM Scheduled Provider:OPAL LUZ PA-C Location:[facility] Appointment Type:URO New Patient Appointment Date:07/25/2023 10:00:00 AM Scheduled Provider:Ya Wagn Location:[facility] Appointment Type:FM Open [facility] Evaluation + Plan note Future Appointments Appointment Date:07/25/2023 10:00:00 AM Scheduled Provider:Ya Wang Location:[facility] Appointment Type:FM Open Future Scheduled TestsThyroid Stimulating Hormone 05/16/23Free T4 05/16/23 [facility] Evaluation + Plan note Future Scheduled TestsCBC w/ Auto Diff 02/08/24Comprehensive Metabolic Panel 02/08/24Thyroid Stimulating Hormone 02/08/24Free T4 02/08/24 [facility] Evaluation + Plan note Future Appointments Appointment Date:07/09/2024 08:00:00 AM Scheduled Provider:Marta Rivas Location:[facility] Appointment Type:FM New Patient - Adult Future Scheduled TestsCBC w/ Auto Diff 02/08/24Comprehensive Metabolic Panel 02/08/24Thyroid Stimulating Hormone 02/08/24Free T4 02/08/24 [facility] Evaluation note Diagnosis Well woman exam with routine gynecological exam Routine gynecological examination [facility] Diagnosis Family history of autism Family history of psychiatric condition [facility] Diagnosis Missed menses , unspecified gestational age Encounter for supervision of normal first in first trimester Nonintractable headache, unspecified chronicity pattern, unspecified headache type [facility]* Diagnosis 13 weeks gestation of ([facility]) Second trimester ([facility]) state, incidental Thyroid disease Unspecified disorder of thyroid History of prior with IUGR Diabetes mellitus screening Screening for diabetes mellitus documented in this encounter [facility]* Diagnosis Thyroid disease affecting - Primary History of prior with IUGR [facility]* Diagnosis Second trimester ([facility]) state, incidental 17 weeks gestation of ([facility]) documented in this encounter [facility]* Diagnosis 20 weeks gestation of [...] rupture of membranes [facility] Diagnosis 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 trimester- Primary History of prior with IUGR History of premature rupture of membranes documented in this encounter [facility]* Diagnosis Hypothyroidism, unspecified type- Primary Second trimester ([facility]) state, incidental 21 weeks gestation of ([facility]) Vaginal discharge Leukorrhea, not specified as infective STD exposure documented in this encounter [facility]* Diagnosis Size of fetus inconsistent with dates in second trimester ([facility])- Primary Second trimester ([facility]) state, incidental 25 weeks gestation of ([facility]) Diabetes mellitus screening Screening for diabetes mellitus documented in this encounter [facility] Discharge instructions No data available for this section [facility] filedocumented in this encounter [facility] [employer] SystemInstructionsNot on filedocumented in this encounter [facility] [employer] SystemInstructionsNot on filedocumented in this encounter [facility] [employer] SystemInstructionsNot on filedocumented in this encounter [facility] [employer] SystemProgress note No data available for this section [facility] Summary Purpose Family History [...] Found Advance Directives No Advanced Directives Records Found Date Activated Date Inactivated Comments 05/30/2021 7:15 [...] and content) DATE CREATED AUTHOR 11/15/2021 [facility] DATE CREATED AUTHOR AUTHOR'S ORGANIZ ATION 09/09/2023 Barry Jalen [facility] DATE CREATED AUTHOR AUTHOR'S ORGANIZ ATION 05/21/2024 [facility] DATE CREATED AUTHOR AUTHOR'S ORGANIZ ATION 07/06/2024 Barry Jalen [facility] DATE CREATED AUTHOR AUTHOR'S ORGANIZ ATION 07/10/2024 Barry Jalen [facility] DATE CREATED AUTHOR AUTHOR'S ORGANIZ ATION 07/13/2024 Barry [facility] DATE CREATED AUTHOR AUTHOR'S ORGANIZ ATION 11/21/2024 [facility] DATE CREATED AUTHOR AUTHOR'S ORGANIZ ATION 11/29/2024 [facility] DATE CREATED AUTHOR AUTHOR'S ORGANIZ ATION 12/10/2024 [facility] EPIC Patient Care team informatio n (unrecognized section and content) Spring Machine Operator Relationship Specialty Start Date End Date Staci White MD [address] [place] [address] PCP - General Internal Medicine 11/29/22 Spring Machine Operator Relationship Specialty Start Date End Date Staci White MD [address] [place] [address] PCP - General Internal Medicine 11/29/22 Spring Machine Operator Relationship Specialty Start Date End Date Staci White MD [address] [place] [address] PCP - General Internal Medicine 11/29/22 Spring Machine Operator Relationship Specialty Start Date End Date Carmita Jurado MD [place], [place] [phone] Attending Provider Medical Clinical Genetics 05/14/24 Spring Machine Operator Relationship Specialty Start Date End Date Staci White MD [address] [place] [address] PCP - General Internal Medicine 11/29/22 Spring Machine Operator Relationship Specialty Start Date End Date Staci White MD [address] [place] [address] PCP - General Internal Medicine 11/29/22 Spring Machine Operator Relationship Specialty Start Date End Date Staci White MD [address] [place] [address] PCP - General Internal Medicine 11/29/22 Spring Machine Operator Relationship Specialty Start Date End Date Staci White MD [address] [place] [address] PCP - General Internal Medicine 11/29/22 Spring Machine Operator Relationship Specialty Start Date End Date Staci White MD PCP - General Internal Medicine 04/07/21 Spring Machine Operator Relationship Specialty Start Date End Date Staci White MD [address] [place] [address] PCP - General Internal Medicine 11/29/22 Spring Machine Operator Relationship Specialty Start Date End Date Staci White MD PCP - General Internal Medicine 04/07/21 Spring Machine Operator Relationship Specialty Start Date End Date Staci White MD PCP - General Internal Medicine 04/07/21 Spring Machine Operator Relationship Specialty Start Date End Date Staci White MD [address] [place] [address] PCP - General Internal Medicine 11/29/22 Reason for Visit (unrecogniz ed section and content) Reason Comments Well Women Visit Reason Comments Amenorrhea Reason Comments Routine Visit Reason Comments Hypothyroidism Hx previous FGR Reason Comments STI Screening Routine Visit FOR RECORDS PERTAINING TO PATIENTS [...] BE BASED ON THE PRIMARY CLINICAL RECORDS. [employer] provides no warranty or guarantee of the accuracy or completeness of information in this document.
[2024-12-11 10:24] LABS: Hematocrit 32.4 % (36.0-48.0); Hemoglobin 10.8 g/dL (12.0-16.0); Immature Granulocytes Abs Auto 0.03 10^3/uL (0.00-0.03); Immature Granulocytes Pct Auto 0.3 % (0.0-0.5); Lymphocytes Absolute Auto 1.3 10^3/uL (1.2-3.8); Mean Corpuscular HGB Conc 33.3 g/dL (29.9-35.2); Mean Corpuscular Hemoglobin 33.2 pg (26.7-34.0); Mean Corpuscular Volume 99.7 fL (81.0-99.0); Platelet Count 303 10^3/uL (150-450); Red Blood Count 3.25 10^6/uL (4.20-5.40); White Blood Count 8.8 10^3/uL (4.0-11.0)
[2024-12-11 10:43] LABS: Glucose 1 Hour 162 mg/dL (<130)
== END 2024-12-11 08:24 | disposition home or self-care (01) ==
LOC: LAB 08:24
PROVIDERS: Visit Provider Physician Assistant
DX: Z13.1 Encounter for screening for diabetes mellitus (principal)
CPT/HCPCS: 36415; 82950; 85025

== ENCOUNTER 2024-12-11 08:27 | Outpatient (OUT) | payer BC, SELFPAY ==
--- OUTSIDE RECORDS SUMMARY | 2024-12-11 08:33 | XMS_ITS | CCD ---
Author Organization [facility] Care Team Providers Care Research Kennel Supervisor Name Role Phone JOANNA, DR VILLATORO Admitting Unavailable JOANNA, DR VILLATORO Attending Unavailable MISC, DR LAURA Primary Care Unavailable JOANNA, DR VILLATORO Admitting Unavailable JOANNA, DR VILLATORO Attending Unavailable MISC, DR ALURA Primary Care Unavailable JOANNA, DR VILLATORO Consulting [...] Unavailable Alba Thorntonbemonty Alexandre Primary Care Physician [phone] Marta Almanzar Attending Unavailable Marta Almanzar Admitting Unavailable Marta Almanzar Attending Unavailable Norberto, Ya L Admitting Unavailable Nancy Tohrntonzabeth L Attending Unavailable Marta Almanzar Attending Unavailable Ham Robins Attending Unavailable Ham Robins Attending Unavailable Marta Almanzar Attending Unavailable Marta Almanzar Admitting Unavailable Unavailable Primary Care Provider UnavailStaci Kirk MD Primary Care Provider SANTOSH MARSHALL Referring Unavailable STACI WHITE Primary [...] day(s), # 28 cap(s), Refills(s) 0, Pharmacy: [facility], 166, cm, 03/09/23 7:33:00 EST, Height/Length [...] BID, 60 EA, Refill(s) 1, [id number], 166, cm, 11/11/22 9:28:00 EDT, Height/Length Dosing, 59.4, kg, 11/11/22 9:28:00 EDT, Weight Dosing Start Date: 11/19/22 Status: Ordered Start: 11-11-2022 hydrocortisone -lidocaine 2.5%-3% rectal gel with applicator 1 carmen, Rectal, BID, 60 EA, Refill(s) 1, [facility], 166, cm, 11/11/22 9:28:00 EDT, Height/Length [...] Daily, # 90 tab(s), Refills(s) 0, Pharmacy: [facility], 166, cm, 08/08/23 15:44:00 EDT, Height/Length [...] Daily, # 90 tab(s), Refills(s) 1, Pharmacy: [facility], 166, cm, 05/16/23 14:25:00 EST, Height/Length Dosing, 56.7, kg, 05/16/23 14:25:00 EST, Weight Dosing Start Date: 05/16/23 Status: Ordered Start: 02-07-2023 take 1 tablet by stephanie th once daily Synthroid 112 mcg Tab 112 mcg = 1 tab(s), Oral, Daily, # 60 tab(s), Refills(s) 0, Pharmacy: [facility], 166, cm, 11/30/22 12:12:00 EDT, Height/Length Dosing, 58.8, kg, 11/30/22 12:12:00 EDT, Weight Dosing Start Date: 02/07/23 Status: Ordered Start: 10-08-2022 take 1 tablet by stephanie th once daily Synthroid 112 mcg Tab 112 mcg = 1 tab(s), Oral, Daily, # 60 tab(s), Refills(s) 0, Pharmacy: [facility], 166, cm, 10/08/22 15:10:00 EDT, Height/Length [...] Daily, # 90 tab(s), Refills(s) 3, Pharmacy: [facility], 166, cm, 05/03/22 14:21:00 EST, Height/Length [...] Daily, # 10 tab(s), Refills(s) 0, Pharmacy: [facility], 166, cm, 12/05/19 13:03:00 EDT, Height/Length [...] day(s), # 9 tab(s), Refills(s) 0, Pharmacy: [facility], 166, cm, 03/09/23 7:33:00 EST, Height/Length Dosing, 58.7, kg, 03/09/23 7:33:00 EST, Weight Dosing Start Date: 03/09/23 Stop Date: 03/12/23 Status: Ordered Start: 02-21-2023 End: 02-24-2023 take 1 tablet by mouth three times daily Pyridium 200 mg Tab 200 mg = 1 tab(s), Oral, TID, X 3 day(s), # 9 tab(s), Refills(s) 0, Pharmacy: [facility], 166, cm, 02/21/23 13:06:00 EST, Height/Length Dosing, 58.6, kg, 02/21/23 13:06:00 EST, Weight Dosing Start Date: 02/21/23 Stop Date: 02/24/23 Status: Ordered PNV no.95/ferrous fum/folic ac ( ORAL) (3 sources) PNV no.95/ferrou s fum/folic ac ( ORAL) Take by mouth in the morning. Active PNV no.95/ferrou s fum/folic ac ( ORAL) Take by mouth daily. Active polyethylene glycol 3350 261464 mg / potassium chloride 1480 mg / sodium bicarbonate 5720 mg / sodium chloride 29880 mg powder for oral solution (11 sources) Osmotic Laxative Start: 11-30-2022 NuLYTELY Lauren ry oral powder for reconstitution See Instructions, 1 EA, Refill(s) 0, Prior to colonoscopy., [facility] #[id number], 166, cm, 11/30/22 12:12:00 EDT, Height/Length Dosing, [...] day(s), # 10 cap(s), Refills(s) 0, Pharmacy: [facility], 166, cm, 02/21/23 13:06:00 EST, Height/Length [...] Negative Negative - 4(7 0) +++ mg/dL [facility] Blood, UA Negative Negative - 50 Cedric/mcL [facility] Clarity, UA Clear [facility] Color, UA Yellow [facility] Glucose, UA Negative Negative - 1999(110) ++++ mg/dL [facility] Interpretation and review of laboratory results Normal [facility] Ketones, UA Negative Negative - 160(16) ++++ mg/dL [facility] Leukocytes, UA Negative Negative - 50 0+++ Ayana/mcL [facility] Nitrite, UA Negative Negative - Positive [facility] pH, UA 7 5 - 9 [facility] Protein, UA Negative Negative - 1999(20) ++++ mg/dL [facility] Spec Grav, UA 1.01 1 - 1.03 [facility] Urobilinogen, UA 0.2 0.2 - 12 mg/dL [facility] Urinalysis macro (dipstick) panel (U)on 11-12-2024 Bilirubin, UA Negative Negative - 4(7 0) +++ mg/dL [facility] Blood, UA Negative Negative - 50 Cedric/mcL [facility] Clarity, UA Clear [facility] Color, UA Yellow [facility] Glucose, UA Positive Negative - 1999(110) ++++ mg/dL [facility] Interpretation and review of laboratory results Abnormal [facility] Ketones, UA Negative Negative - 160(16) ++++ mg/dL [facility] Leukocytes, UA Negative Negative - 50 0+++ Ayana/mcL [facility] Nitrite, UA Negative Negative - Positive [facility] pH, UA 6 5 - 9 [facility] Protein, UA Negative Negative - 1999(20) ++++ mg/dL [facility] Spec Grav, UA 1.015 1 - 1.03 [facility] Urobilinogen, UA 1.0 0.2 - 12 mg/dL [facility] ALL THYROID STIM HORMONEon 0 11-07-2024 TSH Qn 2.68 m[IU]/L [facility] AFP, SERUM, OPEN SPINA BIFID Aon 10-17-2024 AFP MOM 0.82 . [facility] AFP VALUE 34.7 ng/mL . [facility] COMMENT: Comment . [facility] Comment on above: Alie Moon , Ph.D., [facility] Director References: Available Upon Request. Multiples Of Median Cutoffs For AFP Elevations Murphy 2.5 Black 2.8 IDD 2.0 Twins 4.5 Abbreviation Definitions IDD - Insulin Dep Diabetes OSBR - Open Spina Bifida Risk For further inquiries contact [employer] [facility] at [phone]. This test was developed and its performance characteristics determined by [facility]. It has not been cleared or approved by the Food and Drug Administration. Performed at: [facility] [place], [place] [id number] Sales Contractor: Pily Meraz [facility], Phone: [phone] GEST. AGE ON COLLECTION DATE 17.3 . weeks [facility] GESTAT. AGE BASED ON LMP . [facility] Comment on above: Recalculations are n ot recommended when gestational dating by LMP and ultrasound are within 10 days. INSULIN DEP DIABETES No . [facility] INTERPRETATION Comment . [facility] Comment on above: Interpretation: Scre en Negative [...] Customer Services to discuss available options. The [employer] recommends amniocentesis be offered to women age 35 and older. [age] [facility] MULTIPLE GESTATION No . [facility] OSBR RISK [place] [address] . [facility] RACE . [facility] RESULTS Report . [facility] TEST RESULTS: Negative . [facility] WEIGHT 134 . lbs [facility] N N LMP [id number] 2 17 N 1 Y 134 N N N N N White/ [facility] Urinalysis macro (dipstick) panel (U)on 10-15-2024 Bilirubin, UA Negative Negative - 4(7 0) +++ mg/dL [facility] Blood, UA Negative Negative - 50 Cedric/mcL [facility] Clarity, UA Clear [facility] Color, UA Yellow [facility] Glucose, UA Negative Negative - 1999(110) ++++ mg/dL [facility] Interpretation and review of laboratory results Normal [facility] Ketones, UA Negative Negative - 160(16) ++++ mg/dL [facility] Leukocytes, UA Negative Negative - 50 0+++ Ayana/mcL [facility] Nitrite, UA Negative Negative - Positive [facility] pH, UA 6 5 - 9 [facility] Protein, UA Negative Negative - 1999(20) ++++ mg/dL [facility] Spec Grav, UA 1.015 1 - 1.03 [facility] Urobilinogen, UA 0.2 0.2 - 12 mg/dL [facility] GLUCOSE 1 HOURon 10-02-2024 Glucose [Mass/Vol] 108 mg/dL NINF - 130 mg/dL [facility] ALL MISCELLANEOUS TESTon MISCELLANEOUS TEST COMMENT . [facility] Comment on above: Test Ordered: [id number] Parvovirus B19, Human, IgG/IgM Parvovirus B19, IgG 0.1 index Reference Range: 0.0-0.8 Negative <0.9 Equivocal 0.9 - 1.1 Positive >1.1 Parvovirus B19, IgM 0.1 index Reference Range: 0.0-0.8 Negative <0.9 Equivocal 0.9 - 1.1 Positive >1.1 Performed at: [facility] [address] [id number] Sales Contractor: Darion Moon MD, Phone: [phone] Performed at: [facility] [address] [id number] Sales Contractor: Madi Maloney PhD, Phone: [phone] Parvovirus B19 (Human), IgG, IgM [facility] ALL MISCELLANEOUS TESTon MISCELLANEOUS TEST COMMENT . [facility] Comment on above: Test Ordered: [id number] Parvovirus B19, Human, IgG/IgM Parvovirus B19, IgG 0.1 index Reference Range: 0.0-0.8 Negative <0.9 Equivocal 0.9 - 1.1 Positive >1.1 Parvovirus B19, IgM 0.1 index Reference Range: 0.0-0.8 Negative <0.9 Equivocal 0.9 - 1.1 Positive >1.1 Performed at: [facility] [address] [id number] Sales Contractor: Darion Moon MD, Phone: [phone] Performed at: [facility] [address] [id number] Sales Contractor: Madi Maloney PhD, Phone: [phone] Parvovirus B19 (Human), IgG, IgM [facility] ALL CBC WITH AUTO DIFFon BASOPHILS ABSOLUTE AUTO 0 [facility] Basophils/100 WBC (Bld) 0.5 % 0.2 - 2.0 % [facility] Eosinophils/100 WBC (Bld) 0.5 % Low 0.9 - 7.0 % [facility] Erythrocyte distribution width (RBC) [Ratio] 12.3 % 11.0 - 15.0 % [facility] Hematocrit (Bld) [Volume fraction] 38.5 % 36.0 - 48.0 % [facility] IMMATURE GRANULOCYTES ABS AUTO 0.02 [facility] Immature granulocytes/100 WBC (Bld) 0.3 % 0.0 - 0.5 % [facility] Interpretation and review of laboratory results Abnormal [facility] LYMPHOCYTES ABSOLUTE AUTO 1.6 [facility] Lymphocytes/100 WBC (Bld) 21 % 20.5 - 60.0 % [facility] MCH (RBC) [Entitic mass] 33.5 pg 26.7 - 34.0 pg [facility] MCHC (RBC) [Mass/Vol] 35.6 g/dL High 29.9 - 35.2 g/dL [facility] MCV (RBC) [Entitic vol] 94.1 fL 81.0 - 99.0 fL [facility] MONOCYTES ABSOLUTE AUTO 0.4 [facility] Monocytes/100 WBC (Bld) 5.1 % 1.7 - 12.0 % [facility] NEUTROPHILS ABSOLUTE AUTO 5.6 [facility] Neutrophils/100 WBC (Bld) 72.6 % 43.0 - 75.0 % [facility] Platelet mean volume (Bld) [Entitic vol] 11.1 fL 9.5 - 13.5 fL [facility] TBH EO # 0 [facility] TB PLT 211 [facility] RBC 4.09 Low [facility] WBC 7.8 [facility] CBC and differentialon 08-21 Hematocrit (Bld) [Volume fraction] 39 % 36 - 46 % [facility] Platelets (Bld) [#/Vol] 211 10*3/uL 150 - 399 10*3/uL [facility] WBC (Bld) [#/Vol] 7.8 10*3/mL 3.3 - 10.0 10*3/mL [facility] Drug Screen, Urineon 025 Amphetamine/Methamph etamine Negative [facility] Barbiturates Negative [facility] Benzodiazepines Negative [facility] Cocaine Metabolite Negative [facility] Methadone Negative [facility] Opiates Negative [facility] Oxycodone Negative [facility] Phencyclidine Negative [facility] Thc Marijuana, Urine Negative [facility] HBV surface Ag IA Qlon 08-21 Hepatitis B Surface Antigen Negative [facility] HCV Ab IA Qlon 08-21-2024 HCV Ab Ql (S) Non-Reactive [facility] HIV 1+2 Ab+HIV1 p24 Ag IA Ql on 08-21-2024 HIV 1&2 AB/AG Non-Reactive [facility] Hemoglobin A1con 08-21-2024 HbA1c (Bld) [Mass fraction] 5.6 % 4.0 - 6.0 % [facility] Laboratory - Hematology and Cell countson 08-21-2024 Hemoglobin (Bld) [Mass/Vol] 13.7 g/dL 12.0 - 16.0 g/dL [facility] No Panel Informationon 08-21 [facility] Rubella IGG immune statuson 08-21-2024 Rubella immune IgG immune [facility] T. pallidum IgG+IgM IA Ql (S )Ordered By: Nadira Salazar on 08-21-2024 Syphilis Non-Reactive [facility] TSHon 08-21-2024 Thyroid Stimulating (3Rd Generation) Hormone/ Tsh 7.721 [facility] Type and screenon 08-21-2024 Abo/Rh(D) Positive [facility] HCG ( test) Ql (U)o n 08-17-2024 Interpretation and review of laboratory results Abnormal [facility] Preg Test, Ur Positive Negative [facility] US OB TRANSVAGINALon 025 US OB [...] II, MD, PHD at 20-Aug-2024 10:22:40 AM [facility] [facility] Normal Not Available Comment on above: Order Comment: US OB TRANSVAGINAL No LMP recorded. Urinalysis macro (dipstick) panel (U)on 08-17-2024 Bilirubin, UA Negative Negative - 4(7 0) +++ mg/dL [facility] Blood, UA Negative Negative - 50 Cedric/mcL [facility] Clarity, UA Clear [facility] Color, UA Yellow [facility] Glucose, UA Negative Negative - 1999(110) ++++ mg/dL [facility] Interpretation and review of laboratory results Normal [facility] Ketones, UA Negative Negative - 160(16) ++++ mg/dL [facility] Leukocytes, UA Negative Negative - 50 0+++ Ayana/mcL [facility] Nitrite, UA Negative Negative - Positive [facility] pH, UA 7 5 - 9 [facility] Protein, UA Negative Negative - 1999(20) ++++ mg/dL [facility] Spec Grav, UA 1.015 1 - 1.03 [facility] Urobilinogen, UA 0.2 0.2 - 12 mg/dL [facility] Ambulatory Visit Summaryon 0 07-09-2024 Ambulatory [...] 8:40 AM EDT With: Marta Rivas Where: [facility] [address] [place] [address], [place] [address]- Medications What How Much When Why Instructions [...] choosing us for your care. Normal [facility] Office/Clini c Noteon 07-09-2024 [...] anymore, managed with tylenol Social History: Occupation: [employer] Family life: home with and daughter Diet: no restrictions Caffeine: 1 cup coffee/day Exercise: active lifestyle Alcohol use: denies Drug use: denies Smoking status: denies Health Maintenance: Routine labs: thyroid labs 06/2024, declines further labs Pap (21-64yo): 04/2023 Specialists: Export Sales Manager: krysta Dentist: krysta OBGYN: Joanna Review of [...] Recheck TSH/T (more content not included)... Normal [facility] Comment on above: Result Comment: Elec [...] 8:00 AM EDT With: Marta Rivas Where: [facility] [address], [place] [address]- Medications What How Much When Why Instructions New amoxicillin-clavulan ate (Augmentin 875 mg-125 mg Tab) 1 Tablets By Mouth Every 12 hours Acute sinusitis Duration: 10 Days Pickup at [facility] Unchanged levothyroxine (Synthroid 100 mcg Tab) 1 Tablets By Mouth Every day Pharmacy Information [facility]: [address] [place], [place] [id number] [phone] Allergies No Known Allergies Problems Ongoing - [...] for choosing us for your care. Normal [facility] Family Medicine Office/Clini c Noteon 07-05-2024 [...] for 10 day(s), 20 tab(s), Refill(s) 0, [facility], 166, cm, 07/05/24 15:34:00 EDT, Height/Length [...] Follow-up With When Contact Information Ham Pineda, [facility], [address], [address] [phone] Additional Instructions: as scheduled with Marta Patient Education Sinus Infection, Adult, [id number] How to Perform a Sinus Rinse, Rusm-my-Iyyz Problem List/Past Medical History Ongoing Acute sinusitis [...] vaccine, inactivated (more content not included)... Normal [facility] Comment on above: Result Comment: Elec tronically Signed By: Ham Pineda\.irvin\Date and Time Signed: 07/05/24 16:06 EDT CHEMISTRYOrdered By: SYSTEM SYSTEM on 07-04-2024 Free T4 [Mass/Vol] 0.82 ng/dL Normal 0.58 - 1.64 ng/dL [facility] TSH Qn 3.09 m[IU]/L Normal 0.34 - 5.60 mcIU/mL [facility] Free T4on 07-04-2024 Free T4 [Mass/Vol] 0.82 ng/dL Normal 0.58-1.64 [facility] Comment on above: Performed By: #### 2 [id number] #### [facility] [address] [place] [address] TSHon 07-04-2024 TSH Qn 3.09 m[IU]/L Normal 0.34-5.60 [facility] Comment on above: Performed By: #### 2 [id number] #### [facility] [address] [place] [address] DNA EXTRACTION AND HOLDon Method Gentra Puregene Reagents from [employer] Invalid Interpretation Code [facility] Comment on above: Order Comment: Relea se to patient->Automatic Nucleic Acid Concentration 273.2 ng/uL Invalid Interpretation Code [facility] Comment on above: Order Comment: Relea se to patient->Automatic Nucleic Acid Purity 1.90 Invalid Interpretation Code 1.70-2.10 [facility] Comment on above: Order Comment: Relea se to patient->Automatic Signature . Invalid Interpretation Code [facility] Comment on above: Order Comment: Relea se to patient->Automatic Storage and Special Instructions Invalid Interpretation Code [facility] Comment on above: Order Comment: Relea se to patient->Automatic Result Comment: The extracted DNA is stored in the [facility] at -70 degrees C and is being held for future testing. If there are any questions regarding this sample, please contact the [facility] at [phone]. Total DNA Yield 82.0 ug Invalid Interpretation Code [facility] Comment on above: Order Comment: Relea se to patient->Automatic Total Volume DNA 300 ul Invalid Interpretation Code [facility] Comment on above: Order Comment: Relea se to patient->Automatic IGP,APTIMA HPV,AGE GDLNon AGE GDLN ACOG TESTING Note . [facility] Comment on above: TESTS RESULT FLAG UN ITS REF RANGE LAB Clinician Provided Cytology Information Source.............Cervix;Endocervix No. of containers..01 ThinPrep Vial Age Algo ACOG Francheska... FLAG LEGEND: L-Low Normal,H-High Normal,LL-Alert Low,HH-Alert High <-Panic Low,>-Panic High,A-Abnormal,AA-Critical Abnormal Performed at: 01 =G [facility] [address] [place] [address] Sugey Torres MD, IGP, RFX APTIMA HPV ASCU Note . [facility] Comment on above: TESTS RESULT FLAG UN ITS REF RANGE LAB DIAGNOSIS: 02 NEGATIVE FOR INTRAEPITHELIAL LESION OR MALIGNANCY. Specimen adequacy: 02 Satisfactory for evaluation. Endocervical and/or squamous metaplastic cells (endocervical component) are present. Performed by: 02 Yudy Rhoades, Metal Cnc Operator (ASCP) . 02 Note: Note 02 [...] <-Panic Low,>-Panic High,A-Abnormal,AA-Critical Abnormal Performed at: [address] [id number] Sugey Torres MD, Performed at: = - [facility] [address] [id number] Sales Contractor: Sugey Torres MD, Phone: [phone] Performed at: [facility] [id number] Sales Contractor: Sugey Torres MD, Phone: [phone] BRUSH-SPATULA CERVIX ENDOCERVIX [facility] Coding Summary.on 09-14-2023 Coding Summary. FNDEOrco41PFm5mZg+PG hlYWQ+RC7BNJApM96ygU VmbN7qK4FSQDtCLiveNI XPXCxVRjUnesAcOX6ypQ NjZXJu IC8+XK2nBEOwNhykvLXd x7W1bWT9C45sas0wGQfr tGT7LMCrEvMxccutc4cc xAz9HSwnCshcPaLm MRUjpF24TYR6mW65Td40 oRKftPZek2xsoXc3JjAv YTIgIQS8vVoiOXhrc8Kk WNZmU95ydEMws6Y2 IGNvbGxhcHNlOyBlbXB0 hB5yQTobzjdog2czqhmy Vli8nz42aEWbe5T0mYG4 A7TxziT5DTAlhRXa TjnqwVNWwK6sixuyi6pp ybqsWuKmDKCbBCz3JNh9 XRQhbXteAvSuLT35IOA4 NVWtmsKuG5XoUJYj iAkcHxI1m2R0Bg8OM2IT DoofL0NPXDCTXCmtbTH+ WL82nb92X2CyWqjcKgs6 MSGxGQD6yML5aJ3v HDEvZIfot4D0hXD9C4Nv itKeli2kk1gdMIZtYGav K52auDSax8A7SGPymMI9 IDQrzCxfJnRqxI22 Oyc+ZWWmnDgxn5PzPxqc q3jdf8kzvBm1VfqpIIDr icNhlWvlMJQ4u2ZaOi3g QAZwsOK7pPV7oN3c XqXwPhR8TPfyC664ObEz jDIvIrskT73iR8PtpKY+ AHDgVsz8ZHNbtVsvZS6l W0MmCYCwziricEOx nPrjGU9vTRWktnodKMYm hA4yAUOzG4h5ViTzMkI8 KPamJ8DzYNSglphmXr55 pQ5lPrNiRyD0SXpq B0IocyI0EWGyaMYcJJqz QBG9Q05gu4K9XDJpZWGr BYF8pEU5xO9hbFprtbft bGVmdDsgdmVydGlj PLvqVGtqT636YBNysZzl PkNvZGluZyBEYXRlOiAg MDYvMjYvMjAyNDwvdGQ+ ASRkDHY8tQfaDEDd nMIzCIaiPf3voJndbRsg OH6lSMYkmxqgMLEdeL0b IVYgeHKquVxiIV7aLCDy wgaru898VqEzNVE5 EZHytJRkX9YrlX1aRhId OAZlRMRsE7FwgKHqIVig T248KHzpLrR0XNIqfgAm U4ZpZUTdeUtwMpS4 w7S3Ii7Lb8VtjwetO3Ze vCUgXuEzQckeMCj9E0Pa PjwvdHI+EA31GIPtKF99 YSy7WJF6eZorXKfl TAQjA4KvdX5oOgVgRAYy ZGRkOyc+PHRhYmxlIHdp ZHRoPScxMDAlJyBzdHls AR9qDa2lYGFmLIBt sGcvkOTfLbCsi1nwNUTi DOukUV9cgHxcX8WfoST7 PCNvl9w5Vp86M75yA5Et dXA+NWDetXQ8rQF3 fY4wRwYkNhK3KGteZ625 JfQqbTIoNynuw3gkh8iw hKp2CjM6LHNldcPjfMio EKT3v0NiZb26I62x IHdpZHRoPSIxNSUiIHZh rQgkqd5zdH5zTa7+PGNv aHW5dBO5jM8rYhKaXoY8 CHjlL043KuLkaSIp Xrjtg5wfu7hawMn3UoHy KDCxfnDdbDrpEFG4t1Rv Tv04G1FfzEwfi4PtMif6 ju21bCNir7W8rNM4 L8YgZWNfcsdurNAhuVlc ZK4eFGTqmqglKZDgwL0t ZJBtW7a5XiPzVjX0BJbh C4VhibY3WYJsdEJw MMFlyZKPdG8getpbe5an uojuDjUbNBFeVYn0MAh0 YBXhlKjlWcUvFIC9ItN6 AXL7bLRqsF5hiIvm vswjgK2oJsc+QTA8iLGh xBQUHR7kKhmlvJD+PHRk QGY7fQtxTRhsWYNyaS0a MZXiN3u1XxNiGaE5 VAlwS7XovdS6QEHymLGt AIPoePNKjS1dqnwdn6xv wiysTyHkZBEmAOm6HUb3 LWFsaWduOiBsZWZ0 GhM3QCZ0iWZdxT6yaNhz ywfekH1dTle+QmlydGgg VAP7OUn3V6YcCfi3XBZv uXfnVS4bwIRkXWen Fd5uuIylbZyqWA9gOUUp damdx113CbRvf7ceZZPl wZKnVFogUBZ6O84ke1V9 YGJkAVNtFCV6zJI8 xL4koJwsdxcvrUCtyKwi lxHgxDxgJLnqTXdxF715 NNGxvLcdRtZyYRo3O8Ks Vfp1QJPvjZlkRF4h eLXfLNagCi5ouEjcjRjm ZU8mOJQivkuyc849EdGo k4xgRKBidIYoSBbmJJQ2 W64qy3L2SGXqCMQl AZI4gNT1fP5yiPiqadhe bGVmdDsgdmVydGljYWwt KIqoI783SGHfmFxwSlFn ePw1Q3KkZtq6THHe sXpzNA2omLRkWCrdDv2q nGwtdEnwAD6kLQQrhvfi i225MtSqr0ixROEdpEGf TBgrUOP7R26vf6M5 QJGlHPZwLVG4kHK5wG2m bGlnbjogbGVmdDsgdmVy bZqlNTivAWrbV128RWWw cDsnPlBhdGllbnQg IHaqVWe1Q3KsHjznjBF+ CV91TZBzSR28pKVxsSJd a9kbxVt3BiVeHGQbJWM6 kQomLNfaj1NvBGMd H77ryUAha0L5JMMqnZuc kOBeHqBxfQO2gD1aHYby xuged6njktfaCrmhn9tj mu80qK26Z97bMVqu ZHRoPSIzMCUiIHZhbGln cy9evM0eHa7+PGNvbCB3 hAR5lY0nFHUbVuD8NSun Y919JgYziJSiAtac x3ppn9zptXy1RkX0DPIl sfIauIlhMAP5p5AhKb73 E59bGMjrDDUnKRZdUMNm JZEkmUvanl1qdA5x Ii8+IUKlgNU0lJN5uB5x HwXsCdM3YBtqC420TmCh vMQfFfwmE49fA1RfaIZ+ WKPaVaz7XDYcpUqf AJ9ehNWnLAqnRz6hLYM8 MwDcXdVeJTorQ4TmLAAs nyniipmozGZ4WXYjOXIi nD83Kc8vdFofMZJn mQHYzT4jbkmwu8novtmf NoEuRNBsFLo3VBv3NHTy wAzxSxShNTL6FnQ4ZBD5 bMYawE1fiWmztwiq dB5eA9DtZCOhdhjzFg66 xJ7qLtAaWrE9EGxwNqd+ QlJPRUNLRUwsIFNJRVJS XRBQDI86RY51sBQt p6K4uLE7U2RrSZHyljme lipmrTJ9WWJsSLDrpW05 uSFjQRkbSj7cx1E4i707 XLBeTLHfwO49Qb7u yOcjLAFozZJEcE5pwrkm u5dxyggoNrKcKHLjTHg8 WGy2ASPcvPjoCdKkLXB2 TeZ3KJT6wIRoaR2p gKkrvpbetP4tGbo+MTAv DmjeXNv3JRkabZF+PHRk YEL1dYplFMnjROKcaC0d PMZkO2i0YkOiBqZ0 RTqyN5ZkNGLrdtnhDr45 uO1mVbLgGiF2ALhuU8Dk vdF1QIBqfSZgGWrqGGC0 K52ne5O9DCYiMGJp WZK8kZP2iN5ugMxfqevu bGVmdDsgdmVydGljYWwt IFzkU288CSBjgQksAeN9 CObnDZTiZE07GV85 tRTro7P8fKQ6X8XyVWXu eclyufwbbZE3JZFvXLNk bN50tTXoNWtgYm6oh9L9 g396QERqFHEsoP78 Va5syHaaXEJjsOJOxZ9t hndfh6laoydvYwSiECCe XRl1DJd6AONnnFbwPwDw CTL2FdO5TXJ8iUKm hB5wfTzhvnxhwN9dNsg+ OvDtITurKK69VB59uWIp y6A5fUP1V5SwQKUtdxee dsjjzVM7UZQsBFVp sY06wKGtRSivLc9fw8V4 v192XSQqEVOllF83Bw4w jWsuCSIzxIGSsB9yefzp m4jidfkaAfXuASSo JJa8VCz2KDYisHslInNo VQQ3UdZ5MII3gUGdoF6g xRmsuzaslL6hYnk+T3V0 nQC8fMJesZmfiLR+ WY03mh18Z9RrKsrrNzm1 RLPnUWL9uPS3wT2pFWJi AMdtl3Q2bEQ3G7AxwmDk yf5jv7bqOJZqJTqm M62irYQto6K8NKSlqJQ0 MAVwiFqqPpYzxY13Evh+ QANxaCzog0XkAkuyi9fl s5xacNx1ZsRfSIZl eaSwtUtrRTF0n6DuDq09 N60bDBxpLWIvERCuTXLm DFYimBmiiv8jkS6gKt2+ XKNgoOJ4fAL3zC3i VeVeKyG9MDssA669GfSk zPEeThxcj9rnt6jbdVt5 IjIwJSIgdmFsaWduPSJ0 i0HiFg10S8LsyMcd m5NlCem3vp74sQChp3X6 oYO1E2KxEDQcsnmwxWBa hJsoPD7lSGCsioioPUYh tU3sRHIuU0k8ZfBj YgT5QHegP4OkhyT1YTPw tIYsPVYdgCQTyU7voelr i3ovsxjrFmSkUTDmIUa8 PHj2OXJedDgqAgIn ZKW6TuC9ABL1kHBfoM5e iMigzahpwS1tKgd+UGh5 c5sqfYWhHM2ctJZ9NX49 GX19dSGkk6N7zHX9 C5DgYSUrcctkceirnUT8 ZGAfPDUvqE18Ta8rkTqr Id8bZIJqKZI0UIDfvSCb S8UrtI1dMtGjCVGy XIRcR1IaoMKoPObqV037 GIdhGzM4KMUljqQbI2Ty EOVocLqsWoP5s0J9Vj3G OR83SI63GT18pSKt r2N5zJF2D9ZnXTBwhbhw iobuaHJ5WKEgNMBjjN12 Xo0dkZruYl8kRZEsDUE0 JFFuwEJoO0NshC9t AeZhJNOzYTVuY9KjvMRv CKgaU003NYbjJtR9FULp vdVyJ4UhHYXxnKufBgQ1 g8O7Yo3ARy33HW54 BA86dVNlv8G2uWS7S4De ECPpjskfhzjdcWC2VPDf JLVinO89Le8pkVhkNm6f GMExFFL1RWWlkCLt L9RxxU5wBrZvTBSqOLKg T9AgsOGgMNkcZ751HFrk CiT6RFFlufDcU2MoGIZl gJvzDkF9s1G4Nk4Y FDuvjvo0Y3ZlQgpggCQ+ OT81QMQqMT43uNDjaREy r7rtkAh3MbMaARReURY1 nQvcJZpfe9BbMEUd Y24lgRNzw4K3M (more content not included)... Normal [facility] CHEMISTRYOrdered By: SYSTEM SYSTEM on 09-07-2023 Free T4 [Mass/Vol] 0.92 ng/dL Normal 0.58 - 1.64 ng/dL Remisol Chem TSH Qn 3.37 m[IU]/L Normal 0.34 - 5.60 mcIU/mL Remisol Chem Consent for Treatmenton 08-19 Consent for Treatment [id number] #1.00TIFF Normal [facility] Free T4on 09-07-2023 Free T4 [Mass/Vol] 0.92 ng/dL Normal 0.58-1.64 [facility] Comment on above: Performed By: #### 2 360011 #### [facility] [address] [place] [address] TSHon 09-07-2023 TSH Qn 3.37 m[IU]/L Normal 0.34-5.60 [facility] Comment on above: Performed By: #### 2 865140 #### [facility] [address] [place] [address] Ambulatory Visit Summaryon 0 08-08-2023 Ambulatory Visit [...] choosing us for your care. [facility] Family Medicine Office/Clini c Noteon 08-08-2023 [...] Unspecified hemorrhoids) Resolved, no additional complaints. [facility] for screening colonoscopy/diagnost ic colonoscopy due [...] with voice recognition artificial intelligence software, specifically [employer], [employer] and or [employer]. Substitutions may have occurred due to the [...] Alcohol Curren (more content not included)... Normal [facility] Comment on above: Result Comment: Elec [...] Follow these instructions at home: ? Take vkwa-fzu-lysvjue and prescription medicines only as told by [...] provider. Document Revised: 03/09/2022 Document Reviewed: 03/09/2022 [employer] Patient Education ? 2022 [employer]. Gastroenterology Hemorrhoids Hemorrhoids are swollen veins in and around the rectum or anus. There are two types of hemorrhoids: ? Internal hemorrhoids. These occur in the veins that are just inside the rectum. They may poke through to the outside and become irritated and painful. ? External hemorrhoids. These occur in the veins that are (more content not included)... Normal [facility] PAP [id number] 05-20-2023 C. trachomatis rRNA FRANSISCO+probe Ql (Cvx) Negative Invalid Interpretation Code Negative [facility] Comment on above: Performed By: #### 1 [id number] ####[facility] [address] [place] [address] Cytology report Cyto stain Doc (Cvx/Vag) Note Invalid Interpretation Code [facility] Comment on above: Result Comment: TEST S RESULT FLAG UNITS REF RANGE LAB Clinician Provided Cytology Information Source.............Cervix No. of containers..01 ThinPrep Vial DIAGNOSIS: 01 NEGATIVE FOR INTRAEPITHELIAL LESION OR MALIGNANCY. Specimen adequacy: 01 Satisfactory for evaluation. Endocervical and/or squamous metaplastic cells (endocervical component) are present. Performed by: 01 Erum Mckenzie, Metal Cnc Operator ([facility]) . 01 Note: Note 01 The [...] <-Panic Low,>-Panic High,A-Abnormal,AA-Critical Abnormal Performed at: [address] [address] Sugey Torres MD, Performed By: #### 1 [id number] ####[facility] [address] [place] [address] HPV 16+18+31+33+35+39+45 +51+52+56+58+59+66+6 8 DNA Probe+sig amp Ql (Cvx) Negative Invalid Interpretation Code Negative [facility] Comment on above: Result Comment: This nucleic acid amplification test detects fourteen high-risk HPV types (16,18,31,33,35,39,45,51,52,56,58,59,66,68) without differentiation. Performed By: #### 1 [id number] ####[address] [place] [address] N. gonorrhoeae rRNA FRANSISCO+probe Ql (Cvx) Negative Invalid Interpretation Code Negative [facility] Comment on above: Performed By: #### 1 [id number] ####[address] [address] T. vaginalis rRNA FRANSISCO+probe Ql (Unsp spec) Negative Invalid Interpretation Code Negative [facility] Comment on above: Result Comment: Perf ormed at: [facility] [address] [id number] MD Brian Mayes Performed at: =G [facility] [address] [id number] MD Brian Mayes Performed By: #### 1 [id number] ####[address] [place] [address] Family Medicine Office/Clini c Noteon 05-16-2023 Family [...] was performed without the assistance of medical physiologist as witness Pelvic Exam: Vulva: normal appearance, [...] up every 3-5 years based on results YACHT RIGGER referral if needed for further testing or [...] 6 months (more content not included)... Normal [facility] Comment on above: Result Comment: Elec tronically Signed By: Ya Wang\.br\Date and Time Signed: 05/16/23 15:38 EST PAP [id number] 05-16-2023 Gynecological Body Site CERVIX Normal [facility] Comment on above: Performed By: #### 1 [id number] ####[facility] [address] [place] [address] Patient Educationon 05-16-19 Patient Education Obstetrics and [...] including vitamins, herbs, eye drops, creams, and bujw-hxt-fwqqstb medicines. ? Any bleeding problems you have. [...] provider. Document Revised: 06/05/2021 Document Reviewed: 06/05/2021 [employer] Patient Education ? 2022 [employer] Oncology Cancer Screening for Women A [...] How i (more content not included)... Normal [facility] Consent for Treatmenton Consent for Treatment [id number] #1.00TIFF Normal [facility] UA With Cult Reflexon 2023 Bilirubin Ql (U) Negative Normal Negative [facility] Comment on above: Performed By: #### 1 [id number] ####[facility] [address] [place] [address] Clarity (U) CLEAR Normal Clear [facility] Comment on above: Performed By: #### 1 [id number] ####[facility] [address] [place] [address] Color (U) YELLOW Normal Yellow [facility] Comment on above: Performed By: #### 1 [id number] ####[facility] [address] [place] [address] Epithelial cells.squamous LM.HPF (Urine sed) [#/Area] 0-2 Normal 0-2 [facility] Comment on above: Performed By: #### 1 [id number] ####[facility] [address] [place] [address] Glucose Test strip (U) [Mass/Vol] Negative Normal Negative [facility] Comment on above: Performed By: #### 1 [id number] ####[facility] [address] [place] [address] Hemoglobin Ql (U) Negative Normal Negative [facility] Comment on above: Performed By: #### 1 5091287 ####[facility] [address] [place] [address] Ketones (U) [Mass/Vol] Negative Normal Negative [facility] Comment on above: Performed By: #### 1 5519409 ####[facility] [address] [place] [address] [place].plasma/Lithi um.RBC (Bld) [Mass ratio] 0-3 Normal 0-3 [facility] Comment on above: Performed By: #### 1 [id number] ####[address] [address] Nitrite Ql (U) Negative Normal Negative [facility] Comment on above: Performed By: #### 1 [id number] ####[address] [address] pH (U) 6.0 [pH] Invalid Interpretation Code 5.0-9.0 [facility] Comment on above: Performed By: #### 1 0960626 ####[address] [address] Protein (U) [Mass/Vol] Negative Normal Negative [facility] Comment on above: Performed By: #### 1 0669270 ####[address] [place] [address] Specific gravity (U) [Rel density] >=1.030 Invalid Interpretation Code 1.005-1.030 [facility] Comment on above: Performed By: #### 1 [id number] ####[address] [address] Type of Urine collection method Clean Catch Normal [facility] Comment on above: Performed By: #### 1 [id number] ####[address] [place] [address] Urobilinogen Qn (U) 0.2 {Mehdi'U}/dL Normal 0.0-1.0 [facility] Comment on above: Performed By: #### 1 8794113 ####[facility] [address] [place] [address] WBC Auto Ql (U) Negative Normal Negative [facility] Comment on above: Performed By: #### 1 8181262 ####[facility] [address] [place] [address] WBC LM.HPF (Urine sed) [#/Area] 0-5 Normal 0-5 [facility] Comment on above: Performed By: #### 1 [id number] ####[facility] [address] [place] [address] URINALYSISOrdered By: Alphonso Wang on 03-24-2023 Bilirubin [...] AM) Normal Negative [facility] UA Auto SS [place].plasma/Lithi um.RBC (Bld) [Mass ratio] 0-3 /HPF Normal 0-3/HPF [facility] UA Auto SS Nitrite Ql (U) Negative (03/24/23 11:15 AM) Normal Negative [facility] UA Auto SS pH (U) 6.0 *NA* (03/24/23 11:15 AM) Invalid Interpretation Code 5.0 - 9.0 [facility] UA Auto SS Protein (U) [Mass/Vol] Negative (03/24/23 11:15 AM) Normal Negative [facility] UA Auto SS Specific gravity (U) [Rel density] >=1.030 *NA* (03/24/23 11:15 AM) Invalid Interpretation Code 1.005 - 1.030 [facility] UA Auto SS UA Spec Desc Clean Catch (03/24/23 11:15 AM) Normal [facility] UA Auto SS Urobilinogen Qn (U) 0.1141611 {Mehdi'U}/dL Normal 0.0 - 1.0 EU/dL [facility] UA Auto SS WBC Auto Ql (U) Negative (03/24/23 11:15 AM) Normal Negative [facility] UA Auto SS WBC LM.HPF (Urine sed) [#/Area] 0-5 /HPF Normal 0-5/HPF [facility] UA Auto SS T3 Freeon 03-23-2023 Free T3 [Mass/Vol] 2.9 pg/mL Invalid Interpretation Code 2.0-4.4 [facility] Comment on above: Result Comment: Perf ormed at: [facility] [address] [id number] PhD Haider Barraza Performed By: #### 2 [id number], [id number], [id number] ####[facility] [address] [place] [address] US Retroperitoneal Completeo n 03-23-2023 US Retroperitoneal [...] MD Transcribed by: RAZIA Technologist: HW Normal [facility] CHEMISTRYOrdered By: SYSTEM SYSTEM on 03-22-2023 Free T4 [Mass/Vol] 1.10 ng/dL Normal 0.58 - 1.64 ng/dL Remisol Chem TSH Qn 0.90 m[IU]/L Normal 0.34 - 5.60 mcIU/mL Remisol Chem Consent for Treatmenton Consent for Treatment [id number] #1.00TIFF Normal [facility] Free T4on 03-22-2023 Free T4 [Mass/Vol] 1.10 ng/dL Normal 0.58-1.64 [facility] Comment on above: Performed By: #### 2 [id number], [id number], [id number] ####[facility] [address] [place] [address] TSHon 03-22-2023 TSH Qn 0.90 m[IU]/L Normal 0.34-5.60 [facility] Comment on above: Performed By: #### 2 674494, [id number], 1237101 ####[facility] [address] [place] [address] C Urineon 03-11-2023 Bacteria identified Cx Nom [...] Locations R1: This test was performed at: [facility], [address] [place] [address], [address] , [place], Normal [facility] Comment on above: Performed By: #### 2 695618 ####[facility] [address] [place] [address] Family Medicine Office/Clini c Noteon 03-11-2023 Family [...] due to her gallbladder. She saw a form carpenter in 11/2022. She is able to schedule [...] shows: Negat (more content not included)... Normal [facility] Comment on above: Result Comment: Elec [...] Urnls Dip Stick Auto w/o Microscopy POC 72274 Your Care Team Attending Physician - Ya [...] 10:00 AM EDT With: Ya Wang Where: [facility] Normal Recurrent UTI (urinary tract infection), pp_set_radiology_ subspecialty, [facility]\.br\ Medications\.br\ What How Much When Why Instructions\.br\ New cephalexin (Keflex 500 mg Cap) 1 Capsules By Mouth 4 times a day Feeling of incomplete bladder emptying Recurrent UTI (urinary tract infection) Duration: 7 Days Pickup at [facility]\.br\ New phenazopyridine (Pyridium 200 mg Tab) 1 Tablets By Mouth 3 times a day Feeling of incomplete bladder emptying Recurrent UTI (urinary tract infection) Duration: 3 Days Pickup at [facility]\.br\ Unchanged levothyroxine (Synthroid 112 mcg Tab) [...] instructions Prior to colonoscopy. \.br\ Pharmacy Information\.br\ [email or web address]: [address] [place], [place] [id number] [phone]\.br\ Test Results\.br\ Urnls Dip Stick Auto w/o Microscopy POC 65784 (03/09/2023)\.br\ Bilirubin Urine Dipstick - Negative\.br\ Blood Urine Dipstick - Trace-intact\.br\ Glucose Urine Dipstick - Negative\.br\ Ketones Urine Dipstick - Negative\.br\ Leukocytes Urine Dipstick - Trace\.br\ Nitrite Urine Dipstick - Negative\.br\ Protein Urine Dipstick - Negative\.br\ Specific [facility] Urine Dipstick - 1.020\.br\ Urine Appearance Urine [...] including vitamins, herbs, eye drops, creams, and zzht-qfa-zdtgoaq medicines.\.br\ ? \.br\ Whether you are or [...] nerves are communicating with your muscles.\.br\ What [facility] Patient Educationon 03-09-20 Patient Education Endocrinology [...] Follow these instructions at home: ? Take phrf-kbn-ozcyaph and prescription medicines only as told by [...] provider. Document Revised: 03/09/2022 Document Reviewed: 03/09/2022 [employer] Patient Education ? 2022 [employer]. Obstetrics and Gynecology Urinary Tract Infection, Adult A urinary tract infection (UTI) is an infection of any part of the urinary tract. The urinary tract includes the kidneys, ureters, bladder, and urethra. These organs make, store, and get rid of urine in the body. An upper UTI affects the ureters and kidneys. A lower UTI affects the bl (more content not included)... [facility] Physician Referralon 023 Physician Referral [id number] #1.00TIFF [facility] Provider Letteron 03-02-2023 Provider Letter March 02, [address] [place] [id number] : [address] Clay Waters is know on your insurance & we are able to schedule your EGD & Colonoscopy. Please call us at [phone] at your [facility] convenience to schedule your procedure. Thank you for your prompt attention to this matter. Sincerely, [facility] Reminderson 03-02-2023 Reminders - From: Erum Gold To: [facility] - Reminders/Recalls; Sent: 11/30/2022 12:34:03 EDT Show up: 11/30/2022 12:34:00 EDT Subject: Ambulatory Reminder [employer] Reminder/Recall Call pt and scheduled EGD and Colonoscopy with Dr. Williamson once [employer] is approved. - From: Rusty Alfred ([facility] - Reminders/Recalls) To: Yue Perez; Sent: [...] patient to call office to schedule Normal [facility] C Urineon 02-23-2023 Bacteria identified Cx [...] Locations R1: This test was performed at: [facility], [address] [place] [address], [facility]- , , [facility] Comment on above: Performed By: #### 2 [id number] ####[facility] [address] [place] [address] Family Medicine Office/Clini c Noteon 02-21-2023 Family [...] color was orange in appearance due to gugc-oyh-hetmtrj meds she was taking, normal urobilinogen pH [...] day(s), # 10 cap(s), Refills(s) 0, Pharmacy: [facility], 166, cm, 02/21/23 13:06:00 EST, Height/Length Dosing, 58.6, kg, 02/21/23 13:06:00 EST, Weight Dosing phenazopyridine, 200 mg = 1 tab(s), Oral, TID, X 3 day(s), # 9 tab(s), Refills(s) 0, Pharmacy: [facility], 166, cm, 02/21/23 13:06:00 EST, Height/Length Dosing, 58.6, kg, 02/21/23 13:06:00 EST, Weight Dosing Urine Culture Urnls Dip Stick Auto w/o Microscopy POC 06294 2. Acute cystitis (N30.00: Acute cystitis without hematuria) #1 3. Constipation in female (K59.00: Constipation, unspecified) improving. occasional Colace OTC and Miralax 4. Hemorrhoids (K64.9: Unspecified hemorrhoids) improving, stable 5. Hypothyroidism (E03.9: Hypothyroidism, unspecified) Chronic Stable with 112 mcg daily of Synthroid _ control Weight is stable Asymptomatic- noteable tachycardia today Du (more content not included)... Normal [facility] Comment on above: Result Comment: Elec [...] these instructions at home: Medicines ? Take ebwc-jlu-omfmpee and prescription medicines only as told by [...] provider. Document Revised: 10/17/2020 Document Reviewed: 10/17/2020 [employer] Patient Education ? 2022 [employer]. [facility] Ambulatory Visit Summaryon 0 11-30-2022 Ambulatory [...] 1:00 PM EST With: Ya Wang Where: [facility] Normal [facility] Gastroenterology Office/Clin ic Noteon 11-30-2022 Gastroenterology [...] Refill(s) 0, Prior to colonoscopy., [id number], 166, cm, 11/30/22 12:12:00 EDT, Height/Length Dosing, [...] Hypothyroidism Left (more content not included)... Normal [facility] Comment on above: Result Comment: Elec [...] Bulgur wheat. Millet. Quinoa. Bran muffins. Popcorn. [place] wafer crackers. Meats and other proteins [place] beans, kidney beans, and díaz beans. Soybeans. [...] Cream cheese. Sour cream. Fats and oils [employer]. Beverages Soft drinks. Other foods Cakes and [...] provider. Document Revised: (more content not included)... [facility] Pre-Certification Formon Pre-Certification Form [id number] 1#1.00CD:127 [facility] Family Medicine Office/Clini c Noteon 11-11-2022 [...] visit we encourage proper diet and exercise ffvq-rci-xhehwtg MiraLAX or Colace with Preparation H nkrh-yqn-mdtostd, bleeding has stopped, blood noted on toilet [...] Rectal exam was performed, I did offer filterer but patient declined, external anus is normal [...] length of time on toilet, sitz bath's, zzgu-nam-cigjxdd medications and suppositories and creams Hydrocortisone lidocaine with applicator gel ordered today to use twice daily Referral for GI referral placed today Ordered: hydrocortisone-lidoc letty topical, 1 carmen, Rectal, BID, 60 EA, Refill(s) 1, [facility] 166, cm, 11/11/22 9:28:00 EDT, Height/Length Dosing, 59.4, kg, 11/11/22 9:28:00 EDT, Weight Dosing [facility] Internal Ambulatory Referral 2. Hypothyroidism (E03.9: Hypothyroidism, [...] azelastine ophthalmic, (more content not included)... Normal [facility] Comment on above: Result Comment: Elec [...] serving. ? Talk with a diet and environmental permitting specialist (dietitian) if you have questions about [...] Bulgur wheat. Millet. Quinoa. Bran muffins. Popcorn. [place] wafer crackers. Meats and other proteins [place], kidney, and díaz beans. Soybeans. Split peas. [...] Cream cheese. Sour cream. Fats and oils [employer]. Beverages Soft drinks. Other foods Cakes and [...] 03/07/2006 Document Revised: 01/09/2018 Document Reviewed: 01/09/2018 [employer] Patient Education ? 2019 [employer]. Gastroenterology H (more content not included)... Normal [facility] Ambulatory Visit Summaryon 0 10-08-2022 Ambulatory [...] Following Appointments Follow Up with Ya Wang, [facility], [facility] When: Comments: 6 mo f/u for hypothyroid, weight loss Where: [address], [facility] [address] [address]- Business (1) You Need to Complete the Following Anti-thyroid Abys, Blood, Routine collect, 10/08/22, Order for future visit, Lab Collect, Weight loss Invalid Interpretation Code Hypothyroidism [facility] Auto Diffon 10-08-2022 Basophils/100 WBC (Bld) 1.1 % Normal 0.0-2.0 [facility] Comment on above: Order Comment: Order Added by Discern Expert. Performed By: #### 2 104018, [id number], [id number], 2809459, 3149440 ####[facility] [address] [place] [address] Basophils/Leukocytes Auto (Bld) [Pure # fraction] 0.1 E9/L Normal 0.0-0.2 [facility] Comment on above: Order Comment: Order Added by Discern Expert. Performed By: #### 2 237108, [id number], 20595501, 1157258, 4007836 ####[facility] [address] [place] [address] Eosinophils/100 WBC (Bld) 1.2 % Normal 0.0-8.0 [facility] Comment on above: Order Comment: Order Added by Discern Expert. Performed By: #### 2 590626, 84997949, 46784759, 1851402, 3765411 ####[facility] [address] [place] [address] Eosinophils/Leukocyt es Auto (Bld) [Pure # fraction] 0.1 E9/L Normal 0.0-0.5 [facility] Comment on above: Order Comment: Order Added by Discern Expert. Performed By: #### 2 616710, 94150560, 67524093, 5431414, 3737585 ####[address] [place] [address] Lymphocytes/100 WBC (Bld) 41.0 % Normal 14.0-50.0 [facility] Comment on above: Order Comment: Order Added by Discern Expert. Performed By: #### 2 140188, 13060500, 05227045, 3158493, 2636751 ####[address] [address] Lymphocytes/Leukocyt es Auto (Bld) [Pure # fraction] 2.3 E9/L Normal 1.0-4.0 [facility] Comment on above: Order Comment: Order Added by Discern Expert. Performed By: #### 2 386063, 07258012, 38433910, 1344400, 1689090 ####[address] [address] Monocytes/100 WBC (Bld) 5.8 % Normal 4.0-14.0 [facility] Comment on above: Order Comment: Order Added by Discern Expert. Performed By: #### 2 771046, 71410168, 63507449, 8558041, 8182209 ####[address] [address] Monocytes/Leukocytes Auto (Bld) [Pure # fraction] 0.3 E9/L Normal 0.2-1.0 [facility] Comment on above: Order Comment: Order Added by Discern Expert. Performed By: #### 2 572481, 73950954, 72434285, 4585896, 9572347 ####[address] [address] Neutrophils/100 WBC (Bld) 50.9 % Normal 36.0-75.0 [facility] Comment on above: Order Comment: Order Added by Discern Expert. Performed By: #### 2 920724, 17162154, 28854595, 3882666, 2817493 ####[address] [place] [address] Neutrophils/Leukocyt es Auto (Bld) [Pure # fraction] 2.8 E9/L Normal 2.0-7.5 [facility] Comment on above: Order Comment: Order Added by Discern Expert. Performed By: #### 2 062848, 28621338, 30569613, 2809714, 8484944 ####[address] [address] CBC w/ Auto Diffon 3 Erythrocyte distribution width (RBC) [Ratio] 12.6 % Normal 10.9-14.2 [facility] Comment on above: Performed By: #### 2 715948, 00857790, 04195692, 3964712, 5638276 ####[address] [address] Hematocrit (Bld) [Volume fraction] 40.4 % Normal 34.0-46.0 [facility] Comment on above: Performed By: #### 2 872922, 34047729, 95858685, 3632747, 2115506 ####[address] [address] Hemoglobin (Bld) [Mass/Vol] 14.1 g/dL Normal 12.0-16.0 [facility] Comment on above: Performed By: #### 2 774048, 82394437, 49811451, 2902149, 1092251 ####[address] [address] MCH (RBC) [Entitic mass] 32.1 pg Normal 27.0-34.0 [facility] Comment on above: Performed By: #### 2 191686, [id number], 39210765, 9235509, 6760284 ####[address] [place] [address] MCHC (RBC) [Mass/Vol] 34.8 g/dL Normal 31.4-36.0 [facility] Comment on above: Performed By: #### 2 437627, 22535130, 13183190, 6948361, 3853806 ####[facility] [address] [place] [address] MCV (RBC) [Entitic vol] 92.1 fL Normal 80.0-100.0 [facility] Comment on above: Performed By: #### 2 810783, 10774736, 46472904, 6457562, 6069337 ####[address] [address] Platelet mean volume (Bld) [Entitic vol] 9.1 fL Normal 6.4-10.8 [facility] Comment on above: Performed By: #### 2 817943, 68201354, 03268190, 5859659, 6879746 ####[facility] [address] [place] [address] Platelets (Bld) [#/Vol] 238.0 E9/L Normal 150.0-500.0 [facility] Comment on above: Performed By: #### 2 841509, 41927446, 43231282, 1811674, 3235143 ####[address] [address] RBC (Bld) [#/Vol] 4.4 E12/L Normal 4.3-5.9 [facility] Comment on above: Performed By: #### 2 301155, 64679288, 87618360, 4207572, 6288159 ####[facility] [address] [place] [address] WBC corrected for nucl RBC Auto (Bld) [#/Vol] 5.6 E9/L Normal 4.0-11.0 [facility] Comment on above: Performed By: #### 2 642493, 50451113, 38167323, 3290866, 6509021 ####[facility] [place] [address] CMPon 10-08-2022 Albumin [Mass/Vol] 4.7 g/dL Normal 3.3-5.0 [facility] Comment on above: Performed By: #### 2 406737, 08019220, 65910064, 7544957, 5489860 ####[address] [place] [address] Albumin/Globulin (S) [Mass conc ratio] 1.5 Normal 1.1-2.2 [facility] Comment on above: Performed By: #### 2 723941, 48234060, 38575426, 2548514, 5822953 ####[address] [place] [address] ALP [Catalytic activity/Vol] 42 Int._Unit/L Normal 21-98 [facility] Comment on above: Performed By: #### 2 655943, 89741569, 07644332, 1735460, 8143783 ####[facility] [address] [place] [address] ALT No additional P-5'-P [Catalytic activity/Vol] 15 Int._Unit/L Normal 6-46 [facility] Comment on above: Performed By: #### 2 652671, 34503384, 48186972, 4620021, 5002926 ####[facility] [address] [place] [address] Anion gap [Moles/Vol] 13 mmol/L Normal 6-16 [facility] Comment on above: Performed By: #### 2 726086, 58635098, 21518951, 6662362, 6075905 ####[facility] [address] [place] [address] AST [Catalytic activity/Vol] 22 Int._Unit/L Normal 5-43 [facility] Comment on above: Performed By: #### 2 687118, 58622632, 16991957, 7589020, 5764756 ####[facility] [address] [place] [address] Bilirubin [Mass/Vol] 0.5 mg/dL Normal 0.0-1.1 [facility] Comment on above: Performed By: #### 2 826435, 85154182, 22379284, 3757914, 6200772 ####[facility] [address] [place] [address] Calcium [Mass/Vol] 9.4 mg/dL Normal 8.9-11.1 [facility] Comment on above: Performed By: #### 2 801595, 04946050, 88696424, 6152653, 1674383 ####[facility] [address] [place] [address] Chloride [Moles/Vol] 107 mmol/L Normal 101-111 [facility] Comment on above: Performed By: #### 2 943894, 31091185, 57380188, 8223892, 3861164 ####[facility] [address] [place] [address] CO2 [Moles/Vol] 24 mmol/L Normal 21-31 [facility] Comment on above: Performed By: #### 2 122089, 90886298, 45394958, 8112131, 2830662 ####[facility] [address] [place] [address] Creatinine [Mass/Vol] 0.7 mg/dL Normal 0.5-1.3 [facility] Comment on above: Performed By: #### 2 408846, 41175480, 85926648, 8931341, 2529548 ####[facility] [address] [place] [address] Globulin (S) [Mass/Vol] 3.2 g/dL Normal 1.4-4.0 [facility] Comment on above: Performed By: #### 2 298493, 60494581, 15633356, 9109419, 1418033 ####[facility] [address] [place] [address] Glucose [Mass/Vol] 105 mg/dL Normal 55-199 [facility] Comment on above: Result Comment: If t his glucose result represents a fasting glucose, interpretation should refer to the following reference range: 55-99 mg/dL Performed By: #### 2 585515, 04899825, 87314225, 8993271, 5068406 ####[facility] [address] [place] [address] Potassium [Moles/Vol] 3.9 mmol/L Normal 3.5-5.3 [facility] Comment on above: Performed By: #### 2 529639, 23290192, 02932865, 6115797, 3576515 ####[facility] [address] [place] [address] Protein [Mass/Vol] 7.9 g/dL High 6.0-7.8 [facility] Comment on above: Performed By: #### 2 649951, 72147824, 73691010, 7638188, 8660155 ####[facility] [address] [place] [address] Sodium [Moles/Vol] 140 mmol/L Normal 135-145 [facility] Comment on above: Performed By: #### 2 310962, 23084383, 26459398, 5030658, 4182487 ####[facility] [address] [place] [address] Urea nitrogen [Mass/Vol] 17 mg/dL Normal 5-21 [facility] Comment on above: Performed By: #### 2 484330, 11363287, 56391114, 2611127, 5175081 ####[facility] [address] [place] [address] Urea nitrogen/Creatinine [Mass ratio] 24 No Units High 10-20 [facility] Comment on above: Performed By: #### 2 632144, 75278256, 89549173, 1486099, 8256975 ####[facility] [address] [place] [address] Consent for Treatmenton 09-19 Consent for Treatment [id number] #1.00CD:127 Normal 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 Discussed self breast exams and other health [...] and exercise increasing. Patient encouraged to use prul-jjt-gpedhqs MiraLAX or Colace, encouraged Preparation H lzad-yki-ftcdfvm topical treatments if needed. \ Follow-up only if needed. Patient only having minimal complaints 3. Constipation in female (K59.00: Constipation, unspecified) see #3 4. BMI 20.0-20.9, ad (more content not included)... Normal [facility] Comment on above: Result Comment: Elec [...] instructions at home: General instructions ? Take nzfv-yat-gafwgct and prescription medicines only as told by your health care provider. ? Monitor your blood glucose as told by your health care provider. ? If you drink alcohol: ? Limit how much you have to: ? 0?1 (more content not included)... Normal [facility] TSH With T4fr Reflexon 10-08 TSH Qn 0.58 m[IU]/L Normal 0.34-5.60 [facility] Comment on above: Performed By: #### 2 594423, 27958410, 97361307, 4787889, 1117816 ####[facility] [address] [place] [address] eGFRon 10-08-2022 GFR/1.73 sq M.predicted among non-blacks MDRD (S/P/Bld) [Vol rate/Area] 124 mL/min/1.73 m2 Normal >=59 [facility] Comment on above: Order Comment: Order added by Discern Expert. Result Comment: Certified Court/Medical Interpreter erlin kidney disease could be indicated at eGFR's of less than 60 mL/min/1.73m2. Kidney failure is indicated at less than 15 mL/min/1.73m2. Performed By: #### 2 958035, 40604315, 53626158, 3202160, 9144484 ####[facility] [address] [place] [address] PAP ACOG PANEL 2: 21 to 29on 10-23-2021 . . Normal [facility] Comment on above: Performed By: #### C BC #### [facility] [address] [place] [address] Dr. Rima Charles Age Gdln ACOG Testing 21-[address] [facility] Comment on above: Performed By: #### C BC #### [facility] [address] [place], [place] [address] Dr. Rima Charles DIAGNOSIS: Comment [facility] Comment on above: Result Comment: NEGA TIVE FOR INTRAEPITHELIAL LESION OR MALIGNANCY. THIS SPECIMEN WAS RESCREENED PART OF OUR CLINICAL MEDICAL ASSISTANT PROGRAM. Performed By: #### C BC #### [facility] [address] [place] [address] Dr. Rima Charles Methodology: Comment [facility] Comment on above: Result Comment: This liquid based ThinPrep(R) pap test was screened with the use of an image guided system. Performed By: #### C BC #### [facility] [address] [place] [address] Dr. Rima Charels Note: Comment [facility] Comment on above: Result Comment: The Pap smear is a screening test designed to aid in the detection of premalignant and malignant conditions of the uterine cervix. It is not a diagnostic procedure and should not be used as the sole means of detecting cervical cancer. Both false-positive and false-negative reports do occur. . Performed By: #### C BC #### [facility] [address] [place] [address] Dr. Rima Charles Performed by: Comment Normal [facility] Comment on above: Result Comment: Prince Cagle, Metal Cnc Operator (ASCP) Performed By: #### C BC #### [facility] [address] [place] [address] Dr. Rima Charles QC reviewed by: Comment [facility] Comment on above: Result Comment: Amanda Morejon, Supervisory Metal Cnc Operator (ASCP) Performed By: #### C BC #### [facility] [address] [place] [address] Dr. Rima Charles Reflex Criteria: Comment Normal [facility] Comment on above: Result Comment: The HPV DNA reflex criteria were not met with this specimen result therefore, no HPV testing was performed. . Performed By: #### C BC #### [facility] [address] [address] [address] Rima Charles Specimen adequacy: Comment Normal [facility] Comment on above: Result Comment: Sati sfactory for evaluation. Endocervical and/or squamous metaplastic cells (endocervical component) are present. Areas of partially obscuring blood are present. Performed By: #### C BC #### [facility] [address] [address] [address] Rima Charles FREE T4on 10-17-2021 Free T4 [Mass/Vol] 1.01 ng/dL Normal 0.76-1.46 [facility] Comment on above: Performed By: #### F T4 #### [facility] [address] [place] [address] Dr. Rima Charles TSHon 10-17-2021 TSH 4.997 uIU/mL Critically high 0.358-3.740 [facility] Comment on above: Performed By: #### T SH #### [facility] [address] [place] [address] Dr. Rima Charels VAGINITIS/VAGINOSIS DNA PROB Esteban 07-15-2021 Tamara species Negative Normal Negative [facility] Comment on above: Performed By: #### C BC #### [facility] [address] [place] [address] Dr. Rima Charles Gardnerella vaginalis Negative Normal Negative [facility] Comment on above: Performed By: #### C BC #### [facility] [address] [place] [address] Dr. Rima Charles Trichomonas vaginalis Negative Normal Negative [facility] Comment on above: Performed By: #### C BC #### [facility] [address] [place] [address] Dr. Rima Charles CHLAMYDIA/GONOCOCCUS FRANSISCO (SW AB/URINE/PAPon 05-09-2021 Chlamydia trachomatis, FRANSISCO Negative Normal Negative [facility] Comment on above: Performed By: #### C BC #### [facility] [address] [address] [address] Rima Charles Neisseria gonorrhoeae, FRASNISCO Negative Normal Negative [facility] Comment on above: Performed By: #### C BC #### [facility] [address] [address] [address] Rima Charles VAGINITIS/VAGINOSIS DNA PROB Esteban 05-08-2021 Tamara species Negative Normal Negative [facility] Comment on above: Performed By: #### V AGINT #### [facility] [address] [address] [address] Rima Charles Gardnerella vaginalis Negative Normal Negative [facility] Comment on above: Performed By: #### V AGINT #### [facility] [address] [place] [address] Dr. Rima Charles Trichomonas vaginalis Negative Normal Negative [facility] Comment on above: Performed By: #### V AGINT #### [facility] [address] [address] [address] Rima Charles TSHon 02-24-2021 TSH 4.494 uIU/mL Normal 0.470-4.680 [facility] Comment on above: Performed By: #### C BC #### [facility] [address] [place] [address] Dr. Rima Charles TSH RANGE SEE BELOW Normal [facility] Comment on above: Result Comment: <0.3 4 UIU/ml HYPERTHYROID 0.34-5.60 UIU/ml EUTHYROID >5.60 UIU/ml HYPOTHYROID Performed By: #### C BC #### [facility] [address] [place] [address] Dr. Rima Charles AFP MATERNAL FOR SPINA BIFID Aon 2021 AFP MoM 0.98 Normal [facility] Comment on above: Performed By: #### A FPMAT #### [facility] [address] [place] [address] Dr. Rima Charles AFP Value 36.3 ng/mL Normal [facility] Comment on above: Performed By: #### A FPMAT #### [facility] [address] [address] [address] Rima Charles AFP, Serum for Spina Bifida Report Normal [facility] Comment on above: Performed By: #### A FPMAT #### [facility] [address] [address] [address] Rima Charles Comment Comment Normal [facility] Comment on above: Result Comment: Kelly Moon, Ph.D., [facility] Director . References: Available Upon Request. . Multiples Of Median Cutoffs For AFP Elevations Murphy 2.5 Black 2.8 IDD 2.0 Twins 4.5 Abbreviation Definitions IDD - Insulin Dep Diabetes OSBR - Open Spina Bifida Risk . For further inquiries contact [employer] at [phone]. Performed By: #### A FPMAT #### [facility] [address] [place] [address] Dr. Rima Charles Gest Age Collection Date 16.0 weeks Normal [facility] Comment on above: Performed By: #### A FPMAT #### [facility] [address] [address] [address] Rima Charles Gestat, Age Based on LMP Normal [facility] Comment on above: Result Comment: Reca lculations are not recommended when gestational dating by LMP and ultrasound are within 10 days. Performed By: #### A FPMAT #### [facility] [address] [place] [address] Dr. Rima Charles Insulin Dep Diabetes No Normal [facility] Comment on above: Performed By: #### A FPMAT #### [facility] [address] [place] [address] Dr. Rima Charles Interpretation Comment Normal [facility] Comment on above: Result Comment: Inte [...] Customer Services to discuss available options. The [employer] recommends amniocentesis be offered to women age 35 and older. Performed By: #### A FPMAT #### [facility] [address] [address] [address] Rima Charles [age] Normal [facility] Comment on above: Performed By: #### A FPMAT #### [facility] [address] [place] [address] Dr. Rima Charles Multiple Gestation No Normal [facility] Comment on above: Performed By: #### A FPMAT #### [facility] [address] [place] [address] Dr. Rima Charles OS[place] 1 [place] [address] Normal [facility] Comment on above: Performed By: #### A FPMAT #### [facility] [address] [place] [address] Dr. Rima Charles PDF . Normal [facility] Comment on above: Performed By: #### A FPMAT #### [facility] [address] [place] [address] Dr. Rima Charles Race Normal [facility] Comment on above: Performed By: #### A FPMAT #### [facility] [address] [place] [address] Dr. Rima Charles Test Results: Negative Normal [facility] Comment on above: Performed By: #### A FPMAT #### [facility] [address] [place] [address] Dr. Rima Charles HEP B SURFACE ANTIGEN SCREEN on 12-10-2020 HBsAg Screen Negative Normal Negative [facility] Comment on above: Performed By: #### H BSANS #### [facility] [address] [place] [address] Dr. Rima Charles HEPATITIS C ANTIBODYon 12-10 Hep C Virus Ab <0.1 Normal 0.0-0.9 [facility] Comment on above: Result Comment: Nega tive: < 0.8 Indeterminate: 0.8 - 0.9 Positive: > 0.9 . The CDC recommends that a positive HCV antibody result be followed up with a HCV Nucleic Acid Amplification test (903002). Performed By: #### H CV #### [facility] [address] [place] [address] Dr. Rima Charles HIV 1 AND 2 WITH REFLEXon HIV Screen 4th Generation wRfx Non-Reactive Normal Non Reactive [facility] Comment on above: Performed By: #### H IV12 #### [facility] [address] [place] [address] Dr. Rima Charles RPR QUANTon 12-10-2020 Rapid Plasma Reagin, Quant Non-Reactive Normal NonRea<1:1 [facility] Comment on above: Performed By: #### C BC #### [facility] [address] [place] [address] Dr. Rima Charles RUBELLA AB IGGon 12-10-2020 Rubella Antibodies, IgG 2.33 index Normal Immune >0.99 [facility] Comment on above: Result Comment: Non- immune <0.90 Equivocal 0.90 - 0.99 Immune >0.99 Performed By: #### R UBIGG #### [facility] [address] [place] [address] Dr. Rima Charles CBC AUTO DIFFon 12-09-2020 BASO # 0.0 103/ul Normal 0.0-0.1 [facility] Comment on above: Performed By: #### C BC #### [facility] [address] [place] [address] Dr. Rima Charles Basophils/100 WBC (Bld) 0.4 % Normal 0.2-2.0 [facility] Comment on above: Performed By: #### C BC #### [facility] [address] [place] [address] Dr. Rima Charles EO # 0.0 103/ul Normal 0.0-0.7 [facility] Comment on above: Performed By: #### C BC #### [facility] [address] [place] [address] Dr. Rima Charles Eosinophils/100 WBC (Bld) 0.6 % Critically low 0.9-7.0 [facility] Comment on above: Performed By: #### C BC #### [facility] [address] [place] [address] Dr. Rima Charles Erythrocyte distribution width (RBC) [Ratio] 12.0 % Normal 11.0-15.0 [facility] Comment on above: Performed By: #### C BC #### [facility] [address] [place] [address] Dr. Rima Charles Hematocrit (Bld) [Volume fraction] 37.5 % Normal 36.0-48.0 [facility] Comment on above: Performed By: #### C BC #### [facility] [address] [place] [address] Dr. Rima Charles Hemoglobin (Bld) [Mass/Vol] 13.2 g/dL Normal 12.0-16.0 [facility] Comment on above: Performed By: #### C BC #### [facility] [address] [place] [address] Dr. Rima Charles IG # 0.02 10e3/ul Normal 0.00-0.03 [facility] Comment on above: Performed By: #### C BC #### [facility] [address] [place] [address] Dr. Rima Charles IG % 0.3 % Normal 0.0-0.5 [facility] Comment on above: Performed By: #### C BC #### [facility] [address] [place] [address] Dr. Rima Charles LYMPH # 1.4 103/ul Normal 1.2-3.8 [facility] Comment on above: Performed By: #### C BC #### [facility] [address] [place] [address] Dr. Rima Charles Lymphocytes/100 WBC (Bld) 20.2 % Critically low 20.5-60.0 [facility] Comment on above: Performed By: #### C BC #### [facility] [address] [place] [address] Dr. Rima Charles MANUAL DIFF REQ NO Normal [facility] Comment on above: Performed By: #### C BC #### [facility] [address] [place] [address] Dr. Rima Charles MCH (RBC) [Entitic mass] 33.2 pg Normal 26.7-34.0 [facility] Comment on above: Performed By: #### C BC #### [facility] [address] [place] [address] Dr. Rima Charles MCHC (RBC) [Mass/Vol] 35.2 g/dL Normal 29.9-35.2 [facility] Comment on above: Performed By: #### C BC #### [facility] [address] [place] [address] Dr. Rima Charles MCV (RBC) [Entitic vol] 94.5 fL Normal 81.0-99.0 [facility] Comment on above: Performed By: #### C BC #### [facility] [address] [place] [address] Dr. Rima Charles MONO # 0.4 103/ul Normal 0.3-0.8 [facility] Comment on above: Performed By: #### C BC #### [facility] [address] [place] [address] Dr. Rima Charles Monocytes/100 WBC (Bld) 6.1 % Normal 1.7-12.0 [facility] Comment on above: Performed By: #### C BC #### [facility] [address] [place] [id number] Dr. Rima Charles NEUT # 5.1 103/ul Normal 1.4-6.5 [facility] Comment on above: Performed By: #### C BC #### [facility] Laboratory [address] [place] [address] Dr. Rima Charles Neutrophils/100 WBC (Bld) 72.4 % Normal 43.0-75.0 [facility] Comment on above: Performed By: #### C BC #### [facility] Laboratory [address] [place] [address] Dr. Rima Charles Platelet mean volume (Bld) [Entitic vol] 11.2 fL Normal 9.5-13.5 [facility] Comment on above: Performed By: #### C BC #### [facility] Laboratory [address] [address] [address] Rima Charles PLT 221 103/ul Normal 150-450 [facility] Comment on above: Performed By: #### C BC #### [facility] Laboratory [address] [address] [address] Rima Charles RBC 3.97 106/ul Critically low 4.20-5.40 [facility] Comment on above: Performed By: #### C BC #### [facility] Laboratory [address] [address] [address] Rima Charles WBC 7.1 103/ul Normal 4.0-11.0 [facility] Comment on above: Performed By: #### C BC #### [facility] [address] [address] [address] Rima Charles CULTURE URINEon 12-09-2020 CULTURE URINE Culture Observations: No growth Normal [facility] Comment on above: Performed By: #### C BC #### [facility] [address] [address] [address] Rima Charles GLYCOHEMOGLOBIN A1Con 2020 ADA RECOMMENDATION ADA THERAPEUTIC TARGET 6.0 - 7.0 ACTION SUGGESTED > 7.0 Normal [facility] Comment on above: Performed By: #### A 1C #### [facility] [address] [place] [address] Dr. Rima Charles Glucose [Mass/Vol] 111 mg/dL Normal [facility] Comment on above: Performed By: #### A 1C #### [facility] [address] [address] [address] Rima Charles HbA1c (Bld) [Mass fraction] 5.5 % Normal <=6.0 [facility] Comment on above: Performed By: #### A 1C #### [facility] Laboratory [address] [place] [address] Dr. Rima Charles TAHIR BOX TEST PT SEND OUTo n 12-09-2020 SENT TO REF LAB 12/09/20 Normal [facility] Comment on above: Performed By: #### C BC #### [facility] [address] [address] [address] Rima Charles TSHon 12-09-2020 TSH 2.651 uIU/mL Normal 0.470-4.680 [facility] Comment on above: Performed By: #### C BC #### [facility] [address] [address] [address] Rima Charles TSH RANGE SEE BELOW Normal [facility] Comment on above: Result Comment: <0.3 4 UIU/ml HYPERTHYROID 0.34-5.60 UIU/ml EUTHYROID >5.60 UIU/ml HYPOTHYROID Performed By: #### C BC #### [facility] [address] [address] [address] Rima Charles TYPE AND SCREENon 12-09-2020 TYPE AND SCREEN Negative Normal [facility] Comment on above: Performed By: #### C BC #### [facility] [address] [place] [address] Dr. Rima Charles US PREG TVon 12-02-2020 [...] by: LILIANE POPE Date: 2020-12-02 09:34 Normal [facility] Vital Signs Date Time Vital Sign Value Performing Clinician Facility 12-10-2024 10:0400 Body mass index (BMI) [Ratio] 24.79 kg/m2 Erum HAYS Work Phone: [facility] 12-10-2024 10:23-0400 Body weight 67.59 kg Erum HAYS Work Phone: [facility] 12-10-2024 10:23-0400 Diastolic blood pressure 70 mm[Hg] Erum HAYS Work Phone: [facility] 12-10-2024 10:23-0400 Systolic blood pressure 120 mm[Hg] Erum HAYS Work Phone: [facility] 11-12-2024 11:45-0400 Body mass index (BMI) [Ratio] 23.15 kg/m2 Santosh Joanna DO Work Phone: [facility] 11-12-2024 11:45-0400 Body weight 63.1 kg Santosh Joanna DO Work Phone: [facility] 11-12-2024 11:45-0400 Diastolic blood pressure 72 mm[Hg] Santosh Joanna DO Work Phone: [facility] 11-12-2024 11:45-0400 Systolic blood pressure 110 mm[Hg] Santosh Joanna DO Work Phone: [facility] 11-05-2024 11:51-0400 Body height 165.1 cm Jacklyn Campos MD Work Phone: [facility] 11-05-2024 11:51-0400 Body mass index (BMI) [Ratio] 23.03 kg/m2 Jacklyn Campos MD Work Phone: [facility] 11-05-2024 11:51-0400 Body weight 62.78 kg Jacklyn Campos MD Work Phone: [facility] 11-05-2024 11:51-0400 Diastolic blood pressure 58 mm[Hg] Jacklyn Campos MD Work Phone: [facility] 11-05-2024 11:51-0400 Heart rate 94 /min Jacklyn Campos MD Work Phone: [facility] 11-05-2024 11:51-0400 Systolic blood pressure 94 mm[Hg] Jacklyn Campos MD Work Phone: [facility] 10-15-2024 10:13-0400 Body mass index (BMI) [Ratio] 22.38 kg/m2 Erum HAYS Work Phone: [facility] 10-15-2024 10:13-0400 Body weight 61.01 kg Erum Guidry PA Work Phone: [facility] 10-15-2024 10:13-0400 Diastolic blood pressure 70 mm[Hg] Ermu Guidry PA Work Phone: [facility] 10-15-2024 10:13-0400 Systolic blood pressure 118 mm[Hg] Erum Guidry PA Work Phone: [facility] 09-17-2024 11:10-0400 Body mass index (BMI) [Ratio] 22.1 kg/m2 Santosh Joanna DO Work Phone: [facility] 09-17-2024 11:10-0400 Body weight 60.24 kg Santosh Joanna DO Work Phone: [facility] 09-17-2024 11:10-0400 Diastolic blood pressure 70 mm[Hg] Santosh Joanna DO Work Phone: [facility] 09-17-2024 11:10-0400 Systolic blood pressure 112 mm[Hg] Santosh Joanna DO Work Phone: [facility] 08-17-2024 10:00-0400 Body mass index (BMI) [Ratio] 22.86 kg/m2 [facility] 08-17-2024 10:00-0400 Body weight 62.32 kg [facility] Nurse [facility] 08-17-2024 10:00-0400 Diastolic blood pressure 78 mm[Hg] [facility] 08-17-2024 10:00-0400 Systolic blood pressure 120 mm[Hg] [facility] 12-12-2023 14:19-0400 Body mass index (BMI) [Ratio] 21.15 kg/m2 Santosh Joanna DO Work Phone: [facility] 12-12-2023 14:19-0400 Body weight 57.66 kg Santosh Joanna DO Work Phone: [facility] 12-12-2023 14:19-0400 Diastolic blood pressure 62 mm[Hg] Santosh Joanna DO Work Phone: [facility] 12-12-2023 14:19-0400 Systolic blood pressure 104 mm[Hg] Santosh Joanna DO Work Phone: [facility] 08-08-2023 15:43-0400 Blood Pressure Location Ya Thornton [facility] 08-08-2023 15:43-0400 Diastolic blood pressure 60 mm[Hg] Ya Thornton [facility] 08-08-2023 15:43-0400 Heart rate 103 /min Ya Thornton [facility] 08-08-2023 15:43-0400 Respiratory rate 18 /min Ya Thornton [facility] 08-08-2023 15:43-0400 SaO2% (BldA) [Mass fraction] 100 % Ya Thornton [facility] 08-08-2023 15:43-0400 Systolic blood pressure 124 mm[Hg] Ya Thornton [facility] 03-09-2023 07:21-0500 Blood Pressure Location Ya Thornton [facility] 03-09-2023 07:21-0500 Body temperature 97.52 [degF] Ya Thornton [facility] 03-09-2023 07:21-0500 Diastolic blood pressure 60 mm[Hg] Ya Thornton [facility] 03-09-2023 07:21-0500 Heart rate 91 /min Ya Thornton [facility] 03-09-2023 07:21-0500 Respiratory rate 18 /min Ya Thornton [facility] 03-09-2023 07:21-0500 SaO2% (BldA) [Mass fraction] 100 % Ya Thornton [facility] 03-09-2023 07:21-0500 Systolic blood pressure 108 mm[Hg] Ya Thornton [facility] 02-21-2023 12:53-0500 Blood Pressure Location Ya Thornton [facility] 02-21-2023 12:53-0500 Diastolic blood pressure 72 mm[Hg] Ya Thornton [facility] 02-21-2023 12:53-0500 Heart rate 103 /min Ya Thornton [facility] 02-21-2023 12:53-0500 Respiratory rate 18 /min Ya Thornton [facility] 02-21-2023 12:53-0500 SaO2% (BldA) [Mass fraction] 99 % Ya Thornton [facility] 02-21-2023 12:53-0500 Systolic blood pressure 110 mm[Hg] Ya Thornton [facility] 11-30-2022 12:10-0400 Blood Pressure Location Agueda Howez [facility] 11-30-2022 12:10-0400 Body temperature 97.52 [degF] Agueda Gray [facility] 11-30-2022 12:10-0400 Diastolic blood pressure 70 mm[Hg] Agueda Gray [facility] 11-30-2022 12:10-0400 Heart rate 97 /min Agueda Gray [facility] 11-30-2022 12:10-0400 Systolic blood pressure 105 mm[Hg] Agueda Gray [facility] 11-11-2022 09:20-0400 Blood Pressure Location Ya Thornton [facility] 11-11-2022 09:20-0400 Body temperature 98.06 [degF] Ya Thornton [facility] 11-11-2022 09:20-0400 Diastolic blood pressure 62 mm[Hg] Ya Thornton [facility] 11-11-2022 09:20-0400 Heart rate 76 /min Ya Thornton [facility] 11-11-2022 09:20-0400 SaO2% (BldA) [Mass fraction] 98 % Ya Thornton [facility] 11-11-2022 09:20-0400 Systolic blood pressure 112 mm[Hg] Ya Thornton [facility] 05-03-2022 14:14-0500 Blood Pressure Location Ritu Desai [facility] 05-03-2022 14:14-0500 Body temperature 97.7 [degF] Ritu Desai [facility] 05-03-2022 14:14-0500 Diastolic blood pressure 62 mm[Hg] Ritu Desai [facility] 05-03-2022 14:14-0500 Heart rate 71 /min Ritu Desai [facility] 05-03-2022 14:14-0500 SaO2% (BldA) [Mass fraction] 98 % Ritu Desai [facility] 05-03-2022 14:14-0500 Systolic blood pressure 118 mm[Hg] Ritu Desai [facility] 2021 02:06-0400 Body weight 58.[address] SANTOSH MARSHALL [facility] Comment on above: Performed By: #### AFPMAT #### [facility] Laboratory [address] [place] [address] Dr. Rima Charles Encounters Encounter Date Encounter Type Care Provider Facility Start: 01-07-2025 ambulatory Marta Almanzar [facility] Start: 12-10-2024 End: 12-10-2024 Bamboo flowsheet Erum HAYS Work Phone: [facility] Start: 12-10-2024 End: 12-10-2024 Bamboo flowsheet Erum HAYS Work Phone: [facility] Start: 12-10-2024 End: 12-10-2024 flow sheet Erum HAYS Work Phone: [facility] Comment on above: Size of fetus incons istent with dates in second trimester ([facility]) (Primary Dx); Second trimester ([facility]); 25 weeks gestation of ([facility]); Diabetes mellitus screening Start: 12-10-2024 End: 12-10-2024 ambulatory ERUM GUIDRY Not Available Start: 11-27-2024 End: 11-27-2024 ambulatory SANTOSH R JOANNA [facility] Start: 11-20-2024 End: 11-20-2024 ambulatory SANTOSH R JOANNA Start: 11-12-2024 End: 11-12-2024 Bamboo flowsheet Santosh Joanna DO Work Phone: [facility] Start: 11-12-2024 End: 11-12-2024 Bamboo flowsheet Santosh Joanna DO Work Phone: [facility] Start: 11-12-2024 End: 11-12-2024 flow sheet Santosh Joanna DO Work Phone: [facility] Comment on above: Hypothyroidism, unsp ecified type (Primary Dx); Second trimester ([facility]); 21 weeks gestation of ([facility]); Vaginal discharge; STD exposure Start: 11-12-2024 End: 11-12-2024 ambulatory SANTOSH JOANNA Not Available Start: 11-07-2024 End: 11-07-2024 Clinisync Result Encounter Santosh Joanna DO Work Phone: [facility] External Department Unsolicited Start: 11-07-2024 End: 11-07-2024 Clinisync Result Encounter Santosh Joanna DO Work Phone: [facility] External [facility] Unsolicited Start: 11-06-2024 End: 11-06-2024 Orders Only Ayaka Smith RN [facility] Comment on above: Hypothyroidism affec ting in second trimester (Primary Dx); History of prior with IUGR ; History of premature rupture of membranes Start: 11-05-2024 End: 11-05-2024 Office consultation new/estab patient 60 min Jacklyn Campos MD Work Phone: [facility] Comment on above: 20 weeks gestation o f (Primary Dx); Low-lying placenta; 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 trimester; History of prior with IUGR ; Family history of autism; History of gestational diabetes in prior , currently ; History of prior with short cervix, currently ; History of premature rupture of membranes Start: 11-05-2024 End: 11-05-2024 ambulatory SANTOSH R [facility] Start: 10-15-2024 End: 10-15-2024 Bamboo flowsheet Erum HAYS Work Phone: [facility] Start: 10-15-2024 End: 10-17-2024 Bamboo flowsheet Erum HAYS Work Phone: [facility] Start: 10-15-2024 End: 10-17-2024 Clinisync Result Encounter Erum HAYS Work Phone: [facility] External Department Unsolicited Start: 10-15-2024 End: 10-15-2024 flow sheet Erum HAYS Work Phone: [facility] Comment on above: Second trimester pre gnancy ([facility]); 17 weeks gestation of ([facility]) Start: 10-15-2024 End: 10-15-2024 ambulatory ERUM GUIDRY Not Available Start: 10-02-2024 End: 10-02-2024 Clinisync Result Encounter Santosh Joanna DO Work Phone: [facility] External Department Unsolicited Start: 10-02-2024 End: 10-02-2024 Clinisync Result Encounter Santosh Joanna DO Work Phone: [facility] External Department Unsolicited Start: 09-24-2024 End: 09-24-2024 Chart abstracting Jacklyn Campos MD Work Phone: [facility] Start: 09-24-2024 End: 09-26-2024 Clinisync Result Encounter Santosh Joanna DO Work Phone: [facility] External Department Unsolicited Start: 09-24-2024 End: 09-26-2024 Clinisync Result Encounter Santosh Joanna DO Work Phone: [facility] Unsolicited Start: 09-20-2024 End: 09-20-2024 Orders Only Irene Gutierrez RN [facility] Comment on above: Thyroid disease affe cting [...] on above: 13 weeks gestation o f ([facility]); Second trimester ([facility]); Thyroid disease ; History of prior with [...] Start: 07-09-2024 End: 07-09-2024 ambulatory Marta Almanzar Facility:[facility] Start: 07-05-2024 End: 07-05-2024 ambulatory Ham Robins Facility:[facility] Start: 07-04-2024 End: 07-04-2024 ambulatory Marta Almanzar Facility:[facility] Start: 07-04-2024 End: 07-04-2024 Patient encounter procedure Marta Almanzar [facility] Start: 05-14-2024 End: 05-14-2024 ambulatory CARMITA JURADO [facility] Start: 05-14-2024 End: 05-14-2024 Subsequent [...] Start: 09-07-2023 End: 09-07-2023 ambulatory Ya Thornton Facility:[facility] Start: 09-07-2023 End: 09-07-2023 Patient encounter procedure Ya Thornton [facility] Start: 08-08-2023 End: 08-08-2023 ambulatory Ya Thornton Facility:[facility] Start: 08-08-2023 End: 08-08-2023 Patient encounter procedure Ya Thornton [facility] Start: 07-12-2023 End: 07-12-2023 ambulatory OPAL OAKLEYRY Facility:[facility] Start: 07-12-2023 End: 07-12-2023 Patient encounter procedure OPAL OAKLEYRY [facility] Start: 05-16-2023 End: 05-16-2023 ambulatory Ya Thornton Facility:[facility] Start: 05-16-2023 End: 05-16-2023 ambulatory Ya Thornton Facility:[facility] Start: 04-01-2023 ambulatory Ya Thornton Facilit y:[facility] Start: 03-24-2023 End: 03-24-2023 ambulatory Ya Thornton Facility:[facility] Start: 03-24-2023 End: 03-24-2023 Patient encounter procedure Ya Thornton [facility] Start: 03-22-2023 End: 03-22-2023 ambulatory Ya Thornton Facility:[facility] Start: 03-22-2023 End: 03-22-2023 Patient encounter procedure Ya Thornton [facility] Start: 03-09-2023 End: 03-09-2023 Lab Drop off Ya Thornton [facility] Start: 03-09-2023 End: 03-09-2023 ambulatory Ya Thornton Facility:[facility] Start: 03-09-2023 End: 03-09-2023 Patient encounter procedure Ya Thornton [facility] Start: 02-21-2023 End: 02-21-2023 Lab Drop off Ya Thornton [facility] Start: 02-21-2023 End: 02-21-2023 ambulatory Ya Thornton Facility:[facility] Start: 02-21-2023 End: 02-21-2023 Patient encounter procedure Ya Thornton [facility] Start: 11-30-2022 End: 11-30-2022 ambulatory Agueda Gray Facility:[facility] Start: 11-30-2022 End: 11-30-2022 Patient encounter procedure Agueda Gray [facility] Start: 11-11-2022 [facility] Start: 11-11-2022 End: 11-11-2022 ambulatory Ya Thornton Facility:[facility] Start: 11-11-2022 End: 11-11-2022 Patient encounter procedure Ya Thornton [facility] Start: 10-08-2022 End: 10-08-2022 ambulatory Ya Thornton Facility:[facility] Start: 10-08-2022 End: 10-08-2022 ambulatory Ya Thornton Facility:[facility] Start: 05-03-2022 End: 05-03-2022 Patient encounter procedure Ritu Jaimes Desai [facility] Start: 10-19-2021 End: 10-19-2021 [...] Td Vaccines (8 - Td or Tdap) [facility] Start: 11-06-2025 End: 11-06-2025 US MFM with or without consult US MFM with or without consult Imaging Routine 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 trimester History of prior with IUGR History of premature rupture of membranes Expected: 11/06/2025 (Approximate), Expires: 11/06/2025 [employer] Work Phone: Comment on above: Expected: 11/06/2025 (Approximate), Expires: 11/06/2025 Start: 11-05-2025 Adult BMI Screening Adult BMI Screen ing [facility] Start: 11-05-2025 Tobacco Screening Tobacco Screening [facility] Start: 01-01-2025 End: 01-01-2025 Patient encounter procedure [facility] Start: 12-31-2024 End: 12-31-2024 Patient encounter procedure 12/31/2024 11:00 AM EDT Routine [facility] [address] [place] [phone] Santosh Marshall, DO [address] [place] [address] [facility] Start: 12-31-2024 End: 12-31-2024 Professional / ancillary services management 12/31/2024 10:30 AM EDT Ancillary Procedure [facility] [address] [place] [id number] [facility] Start: 12-17-2024 End: 12-17-2024 Patient encounter procedure 12/17/2024 3:00 PM EDT Office Visit [facility] [address] [place] [phone] Santosh Marshall, DO [address] [place] [address] [facility] Start: 12-11-2024 End: 12-11-2024 Patient encounter procedure 12/11/2024 2:15 PM EDT Appointment [facility] [address] [place] [address] [facility] Start: 12-10-2024 End: 12-10-2025 CBC panel - Blood by Automated count CBC Lab Routine Diabetes mellitus screening Expected: 12/10/2024 (Approximate), Expires: 12/10/2025 [facility] Work Phone: Comment on above: Expected: 12/10/2024 (Approximate), Expires: 12/10/2025 Start: 12-10-2024 End: 12-10-2025 Measurement of glucose 1 hour after glucose challenge for glucose tolerance test Glucose tolerance, 1 hour Lab Routine Diabetes mellitus screening Expected: 12/10/2024 (Approximate), Expires: 12/10/2025 [facility] Comment on above: Expected: 12/10/2024 (Approximate), Expires: 12/10/2025 Start: 12-10-2024 End: 04-11-2025 US for US OB follow up transabdominal approach Imaging Routine Size of fetus inconsistent with dates in second trimester ([facility]) Expected: 12/10/2024, Expires: 04/11/2025 [facility] Comment on above: Expected: 12/10/2024 , Expires: 04/11/2025 Start: 12-10-2024 End: 12-10-2024 Patient encounter procedure UMESH FUENTES Comment on above: Arrived Start: 11-27-2024 End: 11-27-2024 Patient encounter procedure 11/27/2024 3:15 PM EDT Appointment [facility] [address] [place] [address] [facility] Start: 11-20-2024 End: 11-20-2024 Patient encounter procedure 11/20/2024 3:45 PM EDT Appointment [facility] [address] [place] [address] [facility] Start: 11-19-2024 Influenza vaccination Influenza Vacc ine [facility] Start: 11-12-2024 End: 11-12-2024 Patient encounter procedure [facility] Comment on above: Arrived Start: 11-05-2024 End: 11-05-2024 Patient encounter procedure - M [facility] Start: 10-21-2024 End: 09-20-2025 US [facility] with or without consult US [facility] with or without consult Imaging Routine Thyroid disease affecting History of prior with IUGR Expected: 10/21/2024 (Approximate), Expires: 09/20/2025 [facility] Work Phone: Comment on above: Expected: 10/21/2024 (Approximate), Expires: 09/20/2025 Start: 10-15-2024 End: 12-16-2024 Alpha fetoprotein, maternal Alpha fetoprotein, maternal Lab Routine 17 weeks gestation of ([facility]) Expected: 10/15/2024 (Approximate), Expires: 12/16/2024 [facility] [...] AM EDT Routine [facility] [address] [place] [phone] Santosh Marshall DO [address] [place] [address] [facility] Start: 08-17-2024 End: 08-17-2025 ABO/Rh ABO/Rh Lab Routine Missed menses , unspecified gestational age Expected: 08/17/2024 (Approximate), Expires: 08/17/2025 [facility] Comment on above: Expected: 08/17/2024 (Approximate), Expires: 08/17/2025 Start: 08-17-2024 End: 08-17-2025 Blood type and Indirect antibody screen panel - Blood Type and screen Lab Routine Missed menses , unspecified gestational age Expected: 08/17/2024 (Approximate), Expires: 08/17/2025 [facility] Comment on above: Expected: 08/17/2024 (Approximate), Expires: 08/17/2025 Start: 08-17-2024 End: 08-17-2025 Drugs of abuse panel - Urine by Screen method Rapid drug screen, urine Lab Routine , unspecified gestational age Encounter for supervision of normal first in first trimester Expected: 08/17/2024 (Approximate), Expires: 08/17/2025 [facility] Comment on above: Expected: 08/17/2024 (Approximate), Expires: 08/17/2025 Start: 08-09-2024 End: 11-09-2024 US Pelvis transvaginal US OB transvaginal Imaging Routine Missed menses Expected: 08/09/2024, Expires: 11/09/2024 [facility] Work Phone: Comment on above: Expected: 08/09/2024 , Expires: 11/09/2024 Start: 11-20-2023 COVID-19 (2023-04 5 season) COVID-19 ( season) [place] [facility] Start: 11-20-2023 FLU (#1) FLU (#1) [facility] Start: 06-04-2022 Depression Screening Depression Scre Critical access hospital Start: 01-19-2022 ambulatory Ambulatory Facility:H 1 Start: 2019 Microscopic observat ion [Identifier] in Cervix by Cyto stain Pap Smear [facility] Start: 2019 Screening for malign ant neoplasm of cervix Pap Smear [facility] Start: 2017 Hepatitis B (1 of 3 - 19+ 3-dose series) Hepatitis B (1 of 3 - 19+ 3-dose series) [facility] Start: 01-16-2016 Adult BMI Screening Adult BMI Screen ing [facility] Start: 2014 MenB (1 of 2 - MenB 2-Dose Series Bexsero) MenB (1 of 2 - MenB 2-Dose Series Bexsero) [facility] Start: 2013 HPV (1 - 3-dose series) HPV (1 - 3-d ose series) [facility] Start: 2011 Varicella (1 of 2 - 13+ 2-dose series) Varicella (1 of 2 - 13+ 2-dose series) [facility] Start: 2010 Tobacco Screening Tobacco Screening [facility] Start: 2005 Tetanus Diphtheria a nd Pertussis Vaccines (1 - Tdap) Tetanus Diphtheria and Pertussis Vaccines (1 - Tdap) [facility] Start: 1999 MMR (1 of 1 - Standa rd series) MMR (1 of 1 - Standard series) [facility] Bacteria identified in Urine by Culture Urine culture Microbiology Routine Missed menses Ordered: 08/17/2024 [facility] Comment on above: Ordered: 08/17/2024 CBC W Auto Different ial panel - Blood CBC and differential Lab Routine Missed menses , unspecified gestational age Ordered: 08/17/2024 [facility] Comment on above: Ordered: 08/17/2024 CHLAMYDIA TRACHOMATI S (GENITO/STI) CHLAMYDIA TRACHOMATIS (GENITO/STI) Lab Routine STD exposure Ordered: 11/12/2024 [facility] Comment on above: Ordered: 11/12/2024 Cytology Cervical or vaginal smear or scraping study Pap Smear Pathology and Cytology Routine Well woman exam with routine gynecological exam Ordered: 12/12/2023 [facility] Work Phone: Comment on above: Ordered: 12/12/2023 End: 05-14-2024 DNA Extraction and hold [facility] Work Phone: Comment on above: 1 Occurrences starti ng 05/14/2024 until 05/14/2024, 1 completed Hemoglobin A1c/Hemoglobin.total in Blood Hemoglobin A1c Lab Routine Missed menses , unspecified gestational age Ordered: 08/17/2024 [facility] Comment on above: Ordered: 08/17/2024 Hepatitis B virus surface Ag [Presence] in Serum or Plasma by Immunoassay Hepatitis B surface antigen Lab Routine Missed menses , unspecified gestational age Ordered: 08/17/2024 [facility] Comment on above: Ordered: 08/17/2024 Hepatitis C virus Ab [Presence] in Serum or Plasma by Immunoassay Hepatitis C antibody Lab Routine Missed menses , unspecified gestational age Ordered: 08/17/2024 [facility] Comment on above: Ordered: 08/17/2024 HIV-1/HIV-2 antigen/antibody combination immunoassay HIV-1 and HIV-2 antibodies Lab Routine Missed menses , unspecified gestational age Ordered: 08/17/2024 [facility] Comment on above: Ordered: 08/17/2024 Neisseria gonorrhoea e DNA [Presence] in Unspecified specimen by FRANSISCO with probe detection Neisseria gonorrhea DNA probe, direct Lab Routine STD exposure Ordered: 11/12/2024 [facility] Comment on above: Ordered: 11/12/2024 Reagin Ab [Presence] in Serum by RPR RPR Lab Routine Missed menses , unspecified gestational age Ordered: 08/17/2024 [facility] Comment on above: Ordered: 08/17/2024 Rubella antibody, IgG Rubella an tibody, IgG Lab Routine Missed menses , unspecified gestational age Ordered: 08/17/2024 [facility] Comment on above: Ordered: 08/17/2024 SURESWAB(R) ADVANCED VAGINITIS PLUS, TMA SURESWAB(R) ADVANCED VAGINITIS PLUS, TMA Pathology and Cytology Routine Vaginal discharge Ordered: 11/12/2024 [facility] Work Phone: Comment on above: Ordered: 11/12/2024 Thyrotropin [Units/volume] in Serum or Plasma TSH Lab Routine Missed menses , unspecified gestational age Encounter for supervision of normal first in first trimester Ordered: 08/17/2024 [facility] Comment on above: Ordered: 08/17/2024 End: 11-12-2025 Thyrotropin [Units/volume] in Serum or Plasma TSH Lab Routine Hypothyroidism, unspecified type 9 Occurrences starting 11/12/2024 until 11/12/2025 [facility] Work Phone: Comment on above: 9 Occurrences starti ng 11/12/2024 until 11/12/2025 US Pelvis transvaginal US OB tra nsvaginal Imaging Routine Missed menses 08/17/2024 9:27 AM EDT [facility] Immunizations Immunization Date Immunization Notes Care Provider Fa cility 05-26-2021 tetanus toxoid, reduced diphtheria toxoid, and acellular pertussis vaccine, adsorbed Ya Thornton [facility] 10-21-2015 meningococcal B vaccine, fully recombinant Ya Thornton [facility] 09-15-2015 meningococcal ACWY vaccine, unspecified formulation Ya Thornton [facility] 09-15-2015 meningococcal B vaccine, fully recombinant Ya Thornton [facility] 06-22-2010 meningococcal ACWY vaccine, unspecified formulation Ya Thornton [facility] 06-22-2010 tetanus toxoid, reduced diphtheria toxoid, and acellular pertussis vaccine, adsorbed Ya Thornton [facility] 01-30-2009 influenza virus vaccine, unspecified formulation Jacklyn Campos MD Work Phone: [facility] 10-16-2003 DTaP, unspecified formulation Ya Thornton [facility] 10-16-2003 measles, mumps and rubella virus vaccine Ya Thornton [facility] 10-16-2003 poliovirus vaccine, unspecified formulation Ya Thornton [facility] 02-03-2000 DTaP, unspecified formulation Ya Thornton [facility] 01-26-1999 measles, mumps and rubella virus vaccine Ya Thornton [facility] 01-26-1999 varicella virus vaccine Ya Thornton [facility] 1998 DTaP, unspecified formulation Ya Thornton [facility] 1998 DTaP, unspecified formulation Ya Thornton [facility] 1998 DTaP, unspecified formulation Ya Thornton [facility] 1998 hepatitis B vaccine, pediatric or pediatric/adolescent dosage Ya Thornton [facility] NEGATED: Highlighted row has not occurred!11-29-2022 influenza virus vaccine, unspecified formulation Agueda Gray [facility] NEGATED: Highlighted row has not occurred!05-03-2022 influenza virus vaccine, unspecified formulation Ritu Desai [facility] Payers Date Payer Category Payer [facility] er [id number] 2024 [employer] Александр Jaeger Managed Care - PPO [id number] 2023 Unknown [id number] 2023 Unknown [id number] 2023 Unknown 2023 Unknown [id number] 2022 Private Health Insurance [id number] 2022 Medicaid [facility]MO [facility] [id number] 2019 Managed Care Other (unspecified) [employer] [id number] 1998 Unknown [id number] 2.16.840.1.719646.3.579.2. 593 1998 Unknown [id number] .16.840.1.947808.3.579.2. 593 1998 Unknown [id number] 2.16.840.1.181176.3.579.2. 593 1998 Unknown [id number] 2.16.840.1.720737.3.579.2. 593 1998 Unknown [id number] 2.16.840.1.232987.3.579.2. 593 1998 Unknown [id number] 2.16.840.1.929998.3.579.2. 593 1998 Unknown [id number] 2.16.840.1.863300.3.579.2. 593 1998 Unknown [id number] 2.16.840.1.728102.3.579.2. 593 1998 Unknown [id number] 2.16840.1.104164.3.579.2. 593 1998 Unknown [id number] 2.16.840.1.936061.3.579.2. 593 1998 Unknown [id number] 2.16.840.1.417929.3.579.2. 727 1998 Unknown [id number] 2.16.840.1.952244.3.579.2. 727 1998 Unknown [id number] 2.16.840.1.532346.3.579.2. 727 1998 Unknown [id number] 2.16.840.1.251268.3.579.2. 727 1998 Unknown [id number] 2.16.840.1.177661.3.579.2. 727 1998 Unknown [id number] 2.16.840.1.984287.3.579.2. 727 1998 Unknown [id number] 2.16.840.1.656970.3.579.2. 727 1998 Unknown [id number] 2.16.840.1.244845.3.579.2. 727 1998 Unknown [id number] 2.16.840.1.787283.3.579.2. 727 1998 Unknown [id number] 2.16.840.1.833036.3.579.2. 727 1998 Unknown [id number] 2.16.840.1.278987.3.579.2. 727 1998 Unknown [id number] 2.16.840.1.847471.3.579.2. 727 1998 Unknown [id number] 2.16.840.1.870267.3.579.2. 727 1998 Unknown [id number] 2.16.840.1.258344.3.579.2. 727 1998 Unknown [id number] 2.16.840.1.874178.3.579.2. 727 1998 Unknown [id number] 2.16.840.1.398783.3.579.2. 727 1998 Unknown [id number] 2.16.840.1.139919.3.579.2. 479 1998 Unknown [id number] 2.16.840.1.394155.3.579.2. 727 1998 Unknown [id number] 2.16.840.1.669842.3.579.2. 727 1998 Unknown [id number] 2.16.840.1.881038.3.579.2. 727 1998 Unknown [id number] 2.16.840.1.245783.3.579.2. 727 1998 Unknown [id number] 2.16.840.1.202274.3.579.2. 727 1998 Unknown [id number] 2.16.840.1.262640.3.579.2. 727 1998 Unknown [id number] 2.16.840.1.505157.3.579.2. 727 1998 Unknown [id number] 2.16.840.1.962468.3.579.2. 1286 1998 Unknown [id number] 2.16.840.1.184239.3.579.2. 1286 1998 Unknown [id number] 2.16.840.1.476281.3.579.2. 1286 1998 Unknown [id number] 2.16.840.1.218513.3.579.2. 1286 1998 Unknown [id number] 2.16.840.1.670390.3.579.2. 1259 1998 Unknown [id number] 2.16.840.1.180307.3.579.2. 1259 1998 Unknown [id number] 2.16.840.1.502325.3.579.2. 1259 1998 Unknown [id number] 2.16.840.1.312709.3.579.2. 1259 1998 Unknown [id number] 2.16.840.1.484012.3.579.2. 1259 1998 Unknown [id number] 2.16.840.1.191450.3.579.2. 1259 1998 Unknown [id number] 2.16.840.1.356365.3.579.2. 1259 1959 Self-pay 1959 Unknown [id number] 1959 Unknown [id number] 1959 Unknown [id number] Unknown [id number] 2.16.840.1.237942.3.579.2. 593 Social History Date Type Detail Facility Start: 05-03-2022 End: 11-17-2022 Tobacco smoking status Never smoked tobacco (finding) [facility] Tobacco smoking status Never Jr [facility] Start: 07-12-2023 End: 12-12-2023 Sex Assigned At Female [facility] Start: 12-12-2023 End: 09-17-2024 Alcoholic beverage intake Current drinker of alcohol (finding) [facility] Start: 07-12-2023 End: 12-12-2023 History of Social function [facility] Start: 11-17-2022 Alcohol Comment occasional alcohol u se [facility] Start: 1998 Sex assigned at Not on file N [facility] Tobacco smoking stat [facility] Tobacco smoking consumption unknown [facility] Sexual Orientation [facility] Start: 07-02-2009 End: 12-03-2020 Sex Female (finding) [facility] Start: 06-30-2024 [facility] Start: 12-23-2020 Tobacco use and exposure Smokeless tobacco non-user [facility] Start: 09-24-2024 End: 11-05-2024 Alcoholic beverage intake Ex-drinker (finding) [facility] The thought of richard ponce myself has occurred to me Never [facility] Medical Equipment Procedure Code Equipment Code Equipment Origin al Text Equipment Identifier Dates Glucose Test Str ips, See Instructions, 1 EA, 3, Glucose Test Strips, [facility] [employer] [facility], Supply, 166, cm, 10/08/22 15:10:00 EDT, Height/Length Dosing, 57.8, kg, 10/08/22 15:10:00 EDT, Weight Dosing Start: 10-08-2022 Lancets, See Instructions, 100 lancet(s), 3, Lancets, [facility] [employer] [facility], Supply, 166, cm, 10/08/22 15:10:00 EDT, Height/Length Dosing, 57.8, kg, 10/08/22 15:10:00 EDT, Weight Dosing Start: 10-08-2022 Glucose Test Str ips, See Instructions, 1 EA, 3, Glucose Test Strips, [facility] [employer] #[facility], Supply, 166, cm, 10/08/22 15:10:00 EDT, Height/Length Dosing, 57.8, kg, 10/08/22 15:10:00 EDT, Weight Dosing Start: 10-08-2022 Lancets, See Instructions, 100 lancet(s), 3, Lancets, [facility] [employer] [facility], Supply, 166, cm, 10/08/22 15:10:00 EDT, Height/Length Dosing, 57.8, kg, 10/08/22 15:10:00 EDT, Weight Dosing Start: 10-08-2022 Glucose Test Str ips, See Instructions, 1 EA, 3, Glucose Test Strips, [facility] [employer] [facility], Supply, 166, cm, 10/08/22 15:10:00 EDT, Height/Length Dosing, 57.8, kg, 10/08/22 15:10:00 EDT, Weight Dosing Start: 10-08-2022 Lancets, See Instructions, 100 lancet(s), 3, Lancets, [facility] [employer] [facility], Supply, 166, cm, 10/08/22 15:10:00 EDT, Height/Length Dosing, 57.8, kg, 10/08/22 15:10:00 EDT, Weight Dosing Start: 10-08-2022 Glucose Test Str ips, See Instructions, 1 EA, 3, Glucose Test Strips, [facility] [employer] [facility], Supply, 166, cm, 10/08/22 15:10:00 EDT, Height/Length Dosing, 57.8, kg, 10/08/22 15:10:00 EDT, Weight Dosing Start: 10-08-2022 Lancets, See Instructions, 100 lancet(s), 3, Lancets, [facility] [employer] [facility], Supply, 166, cm, 10/08/22 15:10:00 EDT, Height/Length Dosing, 57.8, kg, 10/08/22 15:10:00 EDT, Weight Dosing Start: 10-08-2022 Glucose Test Str ips, See Instructions, 1 EA, 3, Glucose Test Strips, [facility] [employer] [facility], Supply, 166, cm, 10/08/22 15:10:00 EDT, Height/Length Dosing, 57.8, kg, 10/08/22 15:10:00 EDT, Weight Dosing Start: 10-08-2022 Lancets, See Instructions, 100 lancet(s), 3, Lancets, [facility] [employer] [facility], Supply, 166, cm, 10/08/22 15:10:00 EDT, Height/Length Dosing, 57.8, kg, 10/08/22 15:10:00 EDT, Weight Dosing Start: 10-08-2022 Glucose Test Str ips, See Instructions, 1 EA, 3, Glucose Test Strips, [facility] [employer] [facility], Supply, 166, cm, 10/08/22 15:10:00 EDT, Height/Length Dosing, 57.8, kg, 10/08/22 15:10:00 EDT, Weight Dosing Start: 10-08-2022 Lancets, See Instructions, 100 lancet(s), 3, Lancets, [facility] [employer] [facility], Supply, 166, cm, 10/08/22 15:10:00 EDT, Height/Length Dosing, 57.8, kg, 10/08/22 15:10:00 EDT, Weight Dosing Start: 10-08-2022 Glucose Test Str ips, See Instructions, 1 EA, 3, Glucose Test Strips, [facility] [employer] [facility], Supply, 166, cm, 10/08/22 15:10:00 EDT, Height/Length Dosing, 57.8, kg, 10/08/22 15:10:00 EDT, Weight Dosing Start: 10-08-2022 Lancets, See Instructions, 100 lancet(s), 3, Lancets, [facility] [employer] [facility], Supply, 166, cm, 10/08/22 15:10:00 EDT, Height/Length Dosing, 57.8, kg, 10/08/22 15:10:00 EDT, Weight Dosing Start: 10-08-2022 Glucose Test Str ips, See Instructions, 1 EA, 3, Glucose Test Strips, [facility] [employer] [facility], Supply, 166, cm, 10/08/22 15:10:00 EDT, Height/Length Dosing, 57.8, kg, 10/08/22 15:10:00 EDT, Weight Dosing Start: 10-08-2022 Lancets, See Instructions, 100 lancet(s), 3, Lancets, [facility] [employer] [facility], Supply, 166, cm, 10/08/22 15:10:00 EDT, Height/Length Dosing, 57.8, kg, 10/08/22 15:10:00 EDT, Weight Dosing Start: 10-08-2022 Glucose Test Str ips, See Instructions, 1 EA, 3, Glucose Test Strips, [facility] [employer] [facility], Supply, 166, cm, 10/08/22 15:10:00 EDT, Height/Length Dosing, 57.8, kg, 10/08/22 15:10:00 EDT, Weight Dosing Start: 10-08-2022 Lancets, See Instructions, 100 lancet(s), 3, Lancets, [facility] [employer] [facility], Supply, 166, cm, 10/08/22 15:10:00 EDT, Height/Length Dosing, 57.8, kg, 10/08/22 15:10:00 EDT, Weight Dosing Start: 10-08-2022 Glucose Test Str ips, See Instructions, 1 EA, 3, Glucose Test Strips, [facility] [employer] [facility], Supply, 166, cm, 10/08/22 15:10:00 EDT, Height/Length Dosing, 57.8, kg, 10/08/22 15:10:00 EDT, Weight Dosing Start: 10-08-2022 Lancets, See Instructions, 100 lancet(s), 3, Lancets, [facility] [employer] [facility], Supply, 166, cm, 10/08/22 15:10:00 EDT, Height/Length Dosing, 57.8, kg, 10/08/22 15:10:00 EDT, Weight Dosing Start: 10-08-2022 Glucose Test Str ips, See Instructions, 1 EA, 3, Glucose Test Strips, [facility] [employer] [facility], Supply, 166, cm, 10/08/22 15:10:00 EDT, Height/Length Dosing, 57.8, kg, 10/08/22 15:10:00 EDT, Weight Dosing Start: 10-08-2022 Lancets, See Instructions, 100 lancet(s), 3, Lancets, [facility] [facility], Supply, 166, cm, 10/08/22 15:10:00 EDT, Height/Length Dosing, 57.8, kg, 10/08/22 15:10:00 EDT, Weight Dosing Start: 10-08-2022 Glucose Test Str ips, See Instructions, 1 EA, 3, Glucose Test Strips, [email or web address] #37, Supply, 166, cm, 10/08/22 15:10:00 EDT, Height/Length Dosing, 57.8, kg, 10/08/22 15:10:00 EDT, Weight Dosing Start: 10-08-2022 Lancets, See Instructions, 100 lancet(s), 3, Lancets, [email or web address] #37, Supply, 166, cm, 10/08/22 15:10:00 EDT, Height/Length Dosing, 57.8, kg, 10/08/22 15:10:00 EDT, Weight Dosing Start: 10-08-2022 Use daily as directed & as needed Start: 03-26-2021 Functional Status Date Assessment Result Facility 08-08-2023 Functional Status N/A [facility] 03-09-2023 Functional Status N/A [facility] 02-21-2023 Functional Status N/A [facility] 11-30-2022 Functional Status N/A [facility] 11-11-2022 Functional Status N/A [facility] 05-03-2022 Functional Status N/A [facility] Clinical Notes 05-03-2022 to 12-10-2024 [...] ASSESSMENT & PLAN ICD-10-CM 1. Second trimester ([facility]) Z34.92 POCT urinalysis dipstick manually resulted 2. 25 weeks gestation of ([facility]) Z3A.25 3. Diabetes mellitus screening Z13.1 CBC [...] of: LIS Man documented in this encounter [facility] 11-12-2024 History of Present illness Narrative Reason [...] nursing note reviewed. Exam conducted with a filterer present. Vitals: Estimated body mass index is 23.15 kg/m as calculated from the following: Height as of 11/29/22: 5' 5 . Weight as of this encounter: 139 lb 1.9 oz. BP: 110/72 Patient's last menstrual period was 06/16/2024. ASSESSMENT & PLAN ICD-10-CM 1. Second trimester ([facility]) Z34.92 POCT urinalysis dipstick manually resulted 2. 21 weeks gestation of ([facility]) Z3A.21 POCT urinalysis dipstick manually resulted 3. [...] 4 weeks; She is followed closely per [facility] with history of hypothyroidism. Will obtain growth ultrasounds every 4 weeks and begin NST/BPP at 32 weeks. Documented by Abril Stone NP on behalf of: Santosh Marshall DO documented in this encounter [facility] 11-05-2024 History of Present illness Narrative Headache/epigastric [...] risk Have you been seen here at [facility] in a previous ? Recent ER visits or hospitalizations? No Bring blood sugar log or meter with you today? (Please bring them with you for every visit at [facility]) NA Flu vaccine (Jan-May)? NA Any [...] Jacklyn Campos MD, FACOG (she/hers) Maternal- Medicine [address] [facility] 1st [place] [address] This document was created with [employer] technology. Though I make every effort to review the dictation as it is transcribed, on occasion the spoken word can be misinterpreted by the technology leading to inappropriate words, phrases, or sentences. This note is addressed to the requesting provider as a consultation for clinical guidance. Specific medical abbreviations are occasionally used and those are generally approved by the [place]?Board of?Obstetrics and?Gynecology?as well as?Lucy s abbreviations. The above plan of care was based solely on the diagnoses for which a consultation was requested. ?More frequent testing may be indicated based on her other medical/obstetrical conditions. The management of other or medical conditions is beyond the scope of requested consultation and will continue to be followed by the primary sheep farmer or primary care provider. Note to patient: [...] of the practitioner. documented in this encounter [facility] 10-15-2024 History of Present illness Narrative Reason [...] ASSESSMENT & PLAN ICD-10-CM 1. Second trimester ([facility]) Z34.92 2. 17 weeks gestation of ([facility]) Z3A.17 POCT urinalysis dipstick manually resulted Alpha [...] of: LIS Man documented in this encounter [facility] 09-17-2024 History of Present illness Narrative Reason [...] nursing note reviewed. Exam conducted with a filterer present. Vitals: Estimated body mass index is 22.1 kg/m as calculated from the following: Height as of 11/29/22: 5' 5 . Weight as of this encounter: 132 lb 12.8 oz. BP: 112/70 Patient's last menstrual period was 06/16/2024. ASSESSMENT & PLAN ICD-10-CM 1. 13 weeks gestation of ([facility]) Z3A.13 2. Second trimester ([facility]) Z34.92 3. Thyroid disease E07.9 levothyroxine (Synthroid) [...] IUGR, thyroid disease, pt being referred to [facility] for level II ultrasound. Pt should be taking 125mcg of levothyroxine. Pt voiced understanding. Pt to start baby aspirin. Orders Placed This Encounter Procedures Glucose tolerance, 1 hour Follow Up: Patient is to return in 4 weeks for routine OB appointment. Documented by Aliya Jeronimo LPN on behalf of: Santosh Marshall DO documented in this encounter [facility] 08-17-2024 History of Present illness Narrative Reason [...] sent in Magnesium for headaches. Patient given [place] labs to do with initial labs along [...] Carmita Tapia LPN documented in this encounter [facility] 07-09-2024 Note Patient Education Endocrinology Hypothyroidism Hypothyroidism [...] Follow these instructions at home: ??? Take iwkk-itf-vwbutvn and prescription medicines only as told by [...] Reviewed: 03/09/2022 Else[employer] Patient Education ? 2023 [employer] Obstetrics and Gynecology Health Maintenance, Female Adopting a healthy lifestyle and getting preventive care are important in promoting health and wellness. Ask your health care provider about: ??? The right schedule for you to have regular tests and exams. ??? Things (more content not included)... [facility] 07-05-2024 Note Patient Education ENT How [...] cannot use soap and water, use hand machine buffer. 2. Wash your device using the directions [...] provider. Document Revised: 08/24/2021 Document Reviewed: 08/24/2021 [employer] Patient Education ? 2023 [employer]. Infectious Disease Sinus Infection, Adult A sinus [...] diagnosed? Your s (more content not included)... [facility] 12-12-2023 History of Present illness Narrative Reason for Appointment: Patient ID: Yana Church is a 23 y.o. female who presents for [facility] Visit Patient presents today for Annual Exam. MEDICATIONS Current Outpatient Medications Medication Instructions levothyroxine (SYNTHROID, LEVOXYL) 112 mcg, Oral, Daily ALLERGIES No Known Allergies PROBLEMS Active Ambulatory Problems Diagnosis Date Noted No Active Ambulatory Problems Resolved Ambulatory Problems Diagnosis Date Noted No Resolved Ambulatory Problems Past Medical History: Diagnosis Date BMI 23.0-23.9, adult Thyroid disease ([facility]) Well woman exam HISTORY PAST MEDICAL HISTORY SOCIAL HISTORY Past Medical History: Diagnosis Date BMI 23.0-23.9, adult Thyroid disease ([facility]) Well woman exam Social History Tobacco Use [...] nursing note reviewed. Exam conducted with a filterer present. Vitals: Estimated body mass index is [...] Santosh Marshall DO documented in this encounter [facility] 08-08-2023 Hospital Discharge instructions Patient Education 08/08/2023 [...] to help relieve pain. General instructions Take msyd-ery-tupqokh and prescription medicines only as told by [...] provider. Document Revised: 10/22/2020 Document Reviewed: 10/22/2020 [employer] Patient Education 2022 [employer]. 08/08/2023 16:25:44 Hemorrhoids Hemorrhoids Hemorrhoids are swollen [...] 3 times a day. General instructions Take xdox-qac-kihrulq and prescription medicines only as told by [...] provider. Document Revised: 09/16/2021 Document Reviewed: 09/16/2021 [employer] Patient Education 2022 [employer]. 08/08/2023 16:25:43 Urinary Tract Infection, Adult Urinary [...] Treatment for this condition includes: Antibiotic medicine. Tcuq-whv-dmsqxsd medicines to treat discomfort. Drinking enough water [...] Follow these instructions at home: Medicines Take xngn-lha-zvcogxe and prescription medicines only as told by [...] provider. Document Revised: 10/17/2020 Document Reviewed: 10/17/2020 [employer] Patient Education 2022 [employer]. 08/08/2023 16:25:41 Hypothyroidism Hypothyroidism Hypothyroidism is when [...] away. Follow these instructions at home: Take yyep-ysy-kqznxzy and prescription medicines only as told by [...] provider. Document Revised: 03/09/2022 Document Reviewed: 03/09/2022 [employer] Patient Education 2022 [employer]. [facility] 08-08-2023 Evaluation + Plan note Future Scheduled TestsUA with Cult Rflx 08/08/23CBC w/ Auto Diff 02/08/24Comprehensive Metabolic Panel 02/08/24Thyroid Stimulating Hormone 02/08/24Thyroid Stimulating Hormone 05/16/23Free T4 02/08/24Free T4 05/16/23 [facility] 03-09-2023 Hospital Discharge instructions [...] including vitamins, herbs, eye drops, creams, and quvy-cdj-cclprzy medicines. ?Whether you are or may be [...] provider. Document Revised: 11/18/2021 Document Reviewed: 10/10/2020 [employer] Patient Education 2022 [employer]. 03/09/2023 08:08:48 Urinary Tract Infection, Adult Urinary [...] Treatment for this condition includes: Antibiotic medicine. Vzzd-zqs-dafnyns medicines to treat discomfort. Drinking enough water [...] Follow these instructions at home: Medicines Take vjeq-ljc-yvhohcq and prescription medicines only as told by [...] provider. Document Revised: 10/17/2020 Document Reviewed: 10/17/2020 [employer] Patient Education 2022 [employer]. 03/09/2023 08:08:46 Hypothyroidism Hypothyroidism Hypothyroidism is when [...] away. Follow these instructions at home: Take kiji-tjm-wjzodqo and prescription medicines only as told by [...] provider. Document Revised: 03/09/2022 Document Reviewed: 03/09/2022 [employer] Patient Education 2022 [employer]. Follow Up Care 03/07/2023 12:06:45 With:Ya Wang [facility], [facility] Address: [address], [address] [facility] [address] [place] [address]- Business (1) When:05/25/2023 Comments:for f/u [facility] 02-21-2023 Hospital Discharge instructions [...] Follow these instructions at home: Medicines Take dqxe-mks-ezfrthv and prescription medicines only as told by [...] provider. Document Revised: 10/17/2020 Document Reviewed: 10/17/2020 [employer] Patient Education 2022 [employer]. Follow Up Care 02/21/2023 08:19:47 With:Ya Wang FAM, [facility] Address: [address] [place] [address] [place] [id number] [facility] (1) When:05/25/2023 Comments:for f/u [facility] 11-30-2022 Hospital Discharge instructions [...] Bulgur wheat. Millet. Quinoa. Bran muffins. Popcorn. [place]ilder[place] wafer crackers. Meats and other proteins [place] beans, kidney beans, and díaz beans. Soybeans. [...] Cream cheese. Sour cream. Fats and oils [place]. Beverages Soft drinks. Other foods Cakes and [...] provider. Document Revised: 07/10/2020 Document Reviewed: 07/10/2020 [employer] Patient Education 2022 [employer]. Follow Up Care 11/11/2022 12:10:41 With:Agueda Gray CNP Address: When:2 weeks Comments:Following EGD/Colonoscopy. [facility] 11-11-2022 Hospital Discharge instructions [...] per serving. Talk with a diet and environmental permitting specialist (dietitian) if you have questions about [...] Bulgur wheat. Millet. Quinoa. Bran muffins. Popcorn. [place]ilder[place] wafer crackers. Meats and other proteins [place], kidney, and díaz beans. Soybeans. Split peas. [...] Cream cheese. Sour cream. Fats and oils [place]. Beverages Soft drinks. Other foods Cakes and [...] 03/07/2006 Document Revised: 01/09/2018 Document Reviewed: 01/09/2018 [employer] Patient Education 2020 [employer]. 11/11/2022 01:00:54 Hemorrhoids Hemorrhoids Hemorrhoids are swollen [...] 3 times a day. General instructions Take qken-rih-kvnbuhg and prescription medicines only as told by [...] provider. Document Revised: 09/16/2021 Document Reviewed: 09/16/2021 [employer] Patient Education 2022 [employer]. Follow Up Care 11/08/2022 14:59:04 With:Ya Wang FAM, [facility] Address: [address], [facility] [place] [phone]- Business (1) When:Within 3 Month(s) Comments:3 mo f/u [facility] 05-03-2022 Hospital Discharge instructions [...] away. Follow these instructions at home: Take dtum-ulz-nxwopcn and prescription medicines only as told by [...] 03/07/2006 Document Revised: 02/17/2018 Document Reviewed: 02/15/2018 [employer] Patient Education 2020 [employer]. Follow Up Care 04/05/2022 12:35:49 With:Ritu Desai CNP Address: [address] [place] [phone] When:1 year Comments:or sooner if needed. [facility] Evaluation + Plan note No data available for this section [facility] Evaluation + Plan note Future Appointments Appointment Date:11/30/2022 12:00:00 PM Scheduled Provider:Agueda Gray CNP Location:[facility] Appointment Type:BAD New Patient Appointment Date:04/04/2023 01:00:00 PM Scheduled Provider:Ya Wang Location:[facility] Appointment Type: Open Future Scheduled TestsTSH With T4fr Reflex 10/08/22 [facility] Evaluation + Plan note Future Appointments Appointment Date:04/04/2023 01:00:00 PM Scheduled Provider:Ya Wang Location:[facility] Appointment Type:FM Open Future Scheduled TestsTSH With T4fr Reflex 10/08/22 [facility] Evaluation + Plan note Future Appointments Appointment Date:07/25/2023 10:00:00 AM Scheduled Provider:Ya Wang Location:[facility] Appointment Type:FM Open Future Scheduled TestsT3 Free 02/21/23Thyroid Stimulating Hormone 02/21/23Free T4 02/21/23 [facility] Evaluation + Plan note Future Appointments Appointment Date:07/25/2023 10:00:00 AM Scheduled Provider:Ya Wang Location:[facility] Appointment Type:FM Open Diagnostic Tests PendingUrine Culture 02/21/23 Future Scheduled TestsT3 Free 02/21/23Thyroid Stimulating Hormone 02/21/23Free T4 02/21/23 [facility] Evaluation + Plan note Future Appointments Appointment Date:07/25/2023 10:00:00 AM Scheduled Provider:Ya Wang Location:[facility] Appointment Type:FM Open Future Scheduled TestsT3 Free 02/21/23Thyroid Stimulating Hormone 02/21/23Free T4 02/21/23US Retroperitoneal Complete 03/09/23 [facility] Evaluation + Plan note Future Appointments Appointment Date:07/25/2023 10:00:00 AM Scheduled Provider:Ya Wang Location:[facility] Appointment Type:FM Open Diagnostic Tests PendingUrine Culture 03/09/23 Future Scheduled TestsT3 Free 02/21/23Thyroid Stimulating Hormone 02/21/23Free T4 02/21/23US Retroperitoneal Complete 03/09/23 [facility] Evaluation + Plan note Future Appointments Appointment Date:07/12/2023 09:30:00 AM Scheduled Provider:OPAL LUZ PA-C Location:[facility] ROOPA Jack[place] Appointment Type:URO New Patient Appointment Date:07/25/2023 10:00:00 AM Scheduled Provider:Ya Wang Location:[facility] Appointment Type:FM Open Diagnostic Tests PendingT3 Free 1/2/24 [facility] Evaluation + Plan note Future Appointments Appointment Date:07/12/2023 09:30:00 AM Scheduled Provider:OPAL LUZ PA-C Location:[facility] Appointment Type:URO New Patient Appointment Date:07/25/2023 10:00:00 AM Scheduled Provider:Ya Wang Location:[facility] Appointment Type:FM Open [facility] Evaluation + Plan note Future Appointments Appointment Date:07/25/2023 10:00:00 AM Scheduled Provider:Ya Wang Location:[facility] Appointment Type:FM Open Future Scheduled TestsThyroid Stimulating Hormone 05/16/23Free T4 05/16/23 [facility] Evaluation + Plan note Future Scheduled TestsCBC w/ Auto Diff 02/08/24Comprehensive Metabolic Panel 02/08/24Thyroid Stimulating Hormone 02/08/24Free T4 02/08/24 [facility] Evaluation + Plan note Future Appointments Appointment Date:07/09/2024 08:00:00 AM Scheduled Provider:Marta Rivas Location:[facility] Appointment Type:FM New Patient - Adult Future Scheduled TestsCBC w/ Auto Diff 02/08/24Comprehensive Metabolic Panel 02/08/24Thyroid Stimulating Hormone 02/08/24Free T4 02/08/24 [facility] Evaluation note Diagnosis Well woman exam with routine gynecological exam Routine gynecological examination [facility] Diagnosis Family history of autism Family history of psychiatric condition [facility] Diagnosis Missed menses , unspecified gestational age Encounter for supervision of normal first in first trimester Nonintractable headache, unspecified chronicity pattern, unspecified headache type [facility]* Diagnosis 13 weeks gestation of ([facility]) Second trimester ([facility]) state, incidental Thyroid disease Unspecified disorder of thyroid History of prior with IUGR Diabetes mellitus screening Screening for diabetes mellitus documented in this encounter [facility]* Diagnosis Thyroid disease affecting - Primary History of prior with IUGR documented in this encounter [facility]* Diagnosis Second trimester ([facility]-HCC) state, incidental 17 weeks gestation of ([facility]-HCC) documented in this encounter [facility] HealthcareEvaluation note* Diagnosis 20 weeks gestation of [...] rupture of membranes [facility] Diagnosis 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 trimester- Primary History of prior with IUGR History of premature rupture of membranes documented in this encounter [facility]* Diagnosis Hypothyroidism, unspecified type- Primary Second trimester ([facility]HS-HCC) state, incidental 21 weeks gestation of ([facility]) Vaginal discharge Leukorrhea, not specified as infective STD exposure documented in this encounter [facility] Healthcare[facility] note* Diagnosis Size of fetus inconsistent with dates in second trimester ([facility]-HCC)- Primary Second trimester ([facility]HS-HCC) state, incidental 25 weeks gestation of ([facility]) Diabetes mellitus screening Screening for diabetes mellitus documented in this encounter [facility] HealthcareHospital Discharge instructions No data available for this section [facility]ructionsNot on filedocumented in this encounter [facility] SystemInstructionsNot on filedocumented in this encounter [facility] SystemInstructionsNot on filedocumented in this encounter [facility] SystemInstructionsNot on filedocumented in this encounter [facility] SystemProgress note No data available for this section [facility] Summary Purpose Family History [...] and content) DATE CREATED AUTHOR 11/15/2021 [facility] DATE CREATED AUTHOR AUTHOR'S ORGANIZ ATION 09/09/2023 Barry Jalen [facility] DATE CREATED AUTHOR AUTHOR'S ORGANIZ ATION 05/21/2024 [facility] DATE CREATED AUTHOR AUTHOR'S ORGANIZ ATION 07/06/2024 Barry Jalen [facility] DATE CREATED AUTHOR AUTHOR'S ORGANIZ ATION 07/10/2024 Barry Jalen [facility] DATE CREATED AUTHOR AUTHOR'S ORGANIZ ATION 07/13/2024 [facility] DATE CREATED AUTHOR AUTHOR'S ORGANIZ ATION 11/21/2024 DATE CREATED AUTHOR AUTHOR'S ORGANIZ ATION 11/29/2024 [facility] DATE CREATED AUTHOR AUTHOR'S ORGANIZ ATION 12/10/2024 [facility] EPIC Patient Care team informatio n (unrecognized section and content) Research Kennel Supervisor Relationship Specialty Start Date End Date Staci White MD [address] [place] [address] PCP - General Internal Medicine 11/29/22 Research Kennel Supervisor Relationship Specialty Start Date End Date Staci White MD [address] [place] [address] PCP - General Internal Medicine 11/29/22 Research Kennel Supervisor Relationship Specialty Start Date End Date Staci White MD [address] [place] [address] PCP - General Internal Medicine 11/29/22 Research Kennel Supervisor Relationship Specialty Start Date End Date Carmita Jurado MD [place], [place] [phone] Attending Provider Medical Clinical Genetics 05/14/24 Research Kennel Supervisor Relationship Specialty Start Date End Date Staci White MD [address] [place] [address] PCP - General Internal Medicine 11/29/22 Research Kennel Supervisor Relationship Specialty Start Date End Date Staci White MD [address] [place] [address] PCP - General Internal Medicine 11/29/22 Research Kennel Supervisor Relationship Specialty Start Date End Date Staci White MD [address] [place] [address] PCP - General Internal Medicine 11/29/22 Research Kennel Supervisor Relationship Specialty Start Date End Date Staci White MD [address] [place] [address] PCP - General Internal Medicine 11/29/22 Research Kennel Supervisor Relationship Specialty Start Date End Date Staci White MD PCP - General Internal Medicine 04/07/21 Research Kennel Supervisor Relationship Specialty Start Date End Date Staci White MD [address] [place] [address] PCP - General Internal Medicine 11/29/22 Research Kennel Supervisor Relationship Specialty Start Date End Date Staci White MD PCP - General Internal Medicine 04/07/21 Research Kennel Supervisor Relationship Specialty Start Date End Date Staci White MD PCP - General Internal Medicine 04/07/21 Research Kennel Supervisor Relationship Specialty Start Date End Date Staci White MD [address] [place] [address] PCP - General Internal Medicine 11/29/22 Reason [...] BE BASED ON THE PRIMARY CLINICAL RECORDS. [employer] provides no warranty or guarantee of the accuracy or completeness of information in this document.
[2024-12-11 11:02] LABS: Thyroid Stimulating Hormone 2.184 uIU/mL (0.358-3.740)
== END 2024-12-11 08:28 | disposition home or self-care (01) ==
LOC: LAB 08:28
PROVIDERS: Visit Provider Obstetrics & Gynecology
DX: Z34.01 Encounter for supervision of normal first pregnancy, first trimester (principal); N92.6 Irregular menstruation, unspecified; Z13.1 Encounter for screening for diabetes mellitus
CPT/HCPCS: 36415; 82950; 84443; 85025

== ENCOUNTER 2024-12-12 08:20 | Outpatient (OUT) | payer BC, SELFPAY ==
--- OUTSIDE RECORDS SUMMARY | 2024-11-27 15:15 | XMS_ITS | Encounter Summary ---
Author Organization [facility] IND [employer] [facility] Address [id number] [address] [place] [address] Care Team Providers Care Virtualization Engineer Name Role Phone Carrillo White MD Primary Care Provider [phone] Reason for Referral * Diagnostic Imaging (Routine) - Pending Review Specialty Diagnoses / Procedures Referred By Contac t Referred To Contact Maternal and Medicine Diagnoses 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 trimester History of prior with IUGR History of premature rupture of membranes Procedures US MFM with or without consult Antoinette Blakely MD [address], [address] [place] [address] Phone: tel: fax: [facility]- [facility] [address] [place] [address] Phone: tel: fax: Referral ID Status Reason Start Date Expiration Date V isits Requested Visits Authorized [id number] Pending Review 11/06/2024 11/06/2025 1 1 Reason for Visit * Diagnostic Imaging (Routine) - Pending Review Specialty Diagnoses / Procedures Referred By Contac t Referred To Contact Maternal and Medicine Diagnoses 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 trimester History of prior with IUGR History of premature rupture of membranes Procedures US MFM with or without consult Antoinette Blakely MD [address] [facility], [address] [place] [address] Phone: tel: fax: [facility]- [facility] [address] [place] [address] Phone: tel: fax: Referral ID Status Reason Start Date Expiration Date V isits Requested Visits Authorized [id number] Pending Review 11/06/2024 11/06/2025 1 1 Encounter Details Date Type Department Care Team (Latest Contact Info) Description 11/27/2024 3:15 PM EDT - 11/27/2024 11:59 PM EDT Hospital Encounter [facility] - Ultrasound [address] [place] [address] 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 trimester; History of prior with IUGR ; History of premature rupture of membranes Discharge Disposition: Home Social History Tobacco Use Types Packs/Day Years Used Date Smoking Tobacco: Never Smokeless Tobacco: Never Alcohol Use Standard Drinks/Week Comments Not Currently 0 (1 standard drink = 0.6 oz pur e alcohol) Delavan Depression Scale Answer Date Recorded Delavan Depression Scale Total 6 06/04/2021 The thought [...] as of this encounter Plan of Treatment Not on file documented as of this encounter Procedures Procedure Name Priority Date/Time Associated Diagnosis Comments US MFM OB TRANSVAGINAL Routine 11/27/2024 3:49 PM EDT 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 trimester History of prior with IUGR History of premature rupture of membranes documented in this encounter Results * US MFM OB TRANSVAGINAL (11/27/2024 3:49 PM EDT) Anatomical Region Laterality Modality OB-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 History ----- --------- OB History 2. Para 1 [id number] Current ----- --------- Cell free DNA low risk analysis Maternal Assessment ----- --------- Physical Exam Height 165 cm, 5 ft 5 in. Initial weight 63 kg, 138 lb. Initial BMI 22.96 kg/m Method ----- --------- Transvaginal ultrasound examination. ----- --------- Gorman . Number of fetuses: 1 Dating ----- --------- LMP on: 06/16/2024 Cycle: regular cycle GA by LMP 23 w + 3 d RENATO by LMP: 03/23/2025 Previous Ultrasound on: 08/17/2024 Type of prior assessment: GA GA at prior assessment date 8 w + 5 d GA by previous U/S 23 w + 2 d RENATO by previous Ultrasound: 03/24/2025 Assigned: based on the LMP, selected on 11/05/2024 Assigned GA (weeks days) 23 w + 3 d Assigned RENATO: 03/23/2025 General Evaluation ----- --------- Cardiac activity Present. FHR 138 bpm. Presentation: breech Placenta: Placental site: posterior, away from cervical os Maternal Structures ----- --------- Uterus Visualized Cervix Visualized Approach - Transvaginal: Cervical length 3.93 cm Impression ----- --------- Single viable intrauterine . Transvaginal cervical length measures 3.93 cm. Recommendations ----- --------- The patient is scheduled in 2 weeks to complete anatomic survey. Subsequent follow up or other follow up as clinically determined by primary OB provider unless otherwise specified by [facility]. Results forwarded to ordering provider so they can follow up with the patient as necessary. Procedure Note Osmar Hickman MD - 11/27/2024 NAME: KERRY MILLAN : 2000 SEX: F Accession Number: [id number] ORDERING PHYSICIAN: ANTOINETTE BLAKELY REFERRING PHYSICIAN: SHAUNA NAIR Coding ----- --------- Procedures 46796: Transvaginal Ultrasound (OB) Indication ----- --------- Screening for cervical length, History of prior with gestationaldiabetes, History of prior with IUGR, History of prior with delivery, Hypothyroidism. History ----- --------- OB History 2. Para 1 [id number] Current ----- --------- Cell free DNA low risk analysis Maternal Assessment ----- --------- Physical Exam Height 165 cm, 5 ft 5 in. Initial weight 63 kg, 138 lb.Initial BMI 22.96 kg/m Method ----- --------- Transvaginal ultrasound examination. ----- --------- Gorman . Number of fetuses: 1 Dating ----- --------- LMP on: 06/16/2024 Cycle: regular cycle GA by LMP 23 w + 3 d RENATO by LMP: 03/23/2025 Previous Ultrasound on: 08/17/2024 Type of prior assessment: GA GA at prior assessment date 8 w + 5 d GA by previous U/S 23 w + 2 d RENATO by previous Ultrasound: 03/24/2025 Assigned: based on the LMP, selected on 11/05/2024 Assigned GA (weeks days) 23 w + 3 d Assigned RENATO: 03/23/2025 General Evaluation ----- --------- Cardiac activity Present. FHR 138 bpm. Presentation: breech Placenta: Placental site: posterior, away from cervical os Maternal Structures ----- --------- Uterus Visualized Cervix Visualized Approach - Transvaginal: Cervical length 3.93 cm Impression ----- --------- Single viable intrauterine . Transvaginal cervical length measures 3.93 cm. Recommendations ----- --------- The patient is scheduled in 2 weeks to complete anatomic survey. Subsequent follow up or other follow up as clinically determined byprimary OB provider unless otherwise specified by MFM. Results forwarded to ordering provider so they can follow up with thepatient as necessary. us Antoinette Blakely MD IMG US ORDERABLES Final Re sult documented in this encounter Visit Diagnoses Diagnosis 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 trimester History of prior with IUGR History of premature rupture of membranes documented in this encounter Care Teams Virtualization Engineer Relationship Specialty Start Date End Date Carrillo White MD PCP - General Internal Medicine 04/07/21 documented as of this encounter
--- OUTSIDE RECORDS SUMMARY | 2024-12-10 10:00 | XMS_ITS | Encounter Summary ---
Author Organization [facility] Address [address] [place] [address] Care Team Providers Care Industrial Production Manager Name Role Phone Carrillo White MD Primary Care Provider [phone] Reason for Visit * Reason Comments Routine Visit Encounter Details Date Type Department Care Team (Latest Contact Info) Description 12/10/2024 10:00 AM EDT Routine [facility] [address] [phone] Erum Giudry PA [address] [place] [address] Size of fetus inconsistent with dates in second trimester ([facility]) (Primary Dx); Second trimester ([facility]); 25 weeks gestation of ([facility]); Diabetes mellitus screening Social History Tobacco Use [...] Sign Reading Time Taken Comments Blood Pressure 120/70 12/10/2024 10:23 AM EDT Pulse - - Temperature - - Respiratory Rate - - Oxygen Saturation - - Inhaled Oxygen Concentration - - Weight 67.6 kg (149 lb) 12/10/2024 10:23 AM EDT Height - - Body Mass Index 24.79 11/29/2022 3:23 PM EDT documented in this encounter Progress Notes * LIS Man - 12/10/2024 10:00 AM EDT Reason for Appointment: Patient ID: [...] reviewed. Vitals: Estimated body mass index is 24.79 kg/m?? as calculated from the following: Height as of 11/29/22: 5' 5 . Weight as of this encounter: 149 lb. BP: 120/70 Patient's last menstrual period was 06/16/2024. ASSESSMENT & PLAN ICD-10-CM 1. Second trimester ([facility]) Z34.92 POCT urinalysis dipstick manually resulted 2. 25 weeks gestation of ([facility]) Z3A.25 3. Diabetes mellitus screening Z13.1 CBC Glucose tolerance, 1 hour CBC Glucose tolerance, 1 hour Return OB: Patient presents today for a routine obstetrics appointment. Patient is currently 25w2d . Patient states she is doing well but has complaints of being tired due to current . Patient has verbalizes frequent movement. Orders Placed This Encounter Procedures US OB follow up transabdominal approach CBC Glucose tolerance, 1 hour POCT urinalysis dipstick manually resulted Follow Up: Patient is to return to office in 4 week for routine OB appointment. Documented by LIS Man on behalf of: LIS Man documented in this encounter Plan of Treatment Upcoming Encounters Date Type Department Care Team (Late st Contact Info) Description 12/31/2024 10:30 AM EDT Ancillary Procedure [facility] [address] [place] [id number] 12/31/2024 11:00 AM EDT Routine [facility] [address] [place] [address] Santosh Marshall DO [address] [place], [place] [id number] Scheduled Orders Name Type Priority Associated Diagnoses Orde r Schedule CBC Lab Routine Diabetes mellitus screening Expected: 12/10/2024 (Approximate), Expires: 12/10/2025 Glucose tolerance, 1 hour Lab Routine Diabetes mellitus screening Expected: 12/10/2024 (Approximate), Expires: 12/10/2025 US OB follow up transabdominal approach Imaging Routine Size of fetus inconsistent with dates in second trimester ([facility]) Expected: 12/10/2024, Expires: 04/11/2025 documented as of this encounter Procedures Procedure Name Priority Date/Time Associated Diagnosis Comments POCT URINALYSIS DIPSTICK Routine 12/10/2024 10:28 AM EDT Second trimester ([facility]) documented in this encounter Results * POCT urinalysis dipstick manually resulted (12/10/2024 10:28 AM EDT) Color, UA Yellow Clarity, UA Clear Glucose, UA Negative Negative - 2000(110) ++++ mg/dL Bilirubin, UA Negative Negative - 4(70) +++ mg/dL Ketones, UA Negative Negative - 160(16) ++++ mg/dL Spec Grav, UA 1.010 1 - 1.03 Blood, UA Negative Negative - 50 Cedric/mcL pH, UA 7.0 5 - 9 Protein, UA Negative Negative - 2000(20) ++++ mg/dL Urobilinogen, UA 0.2 0.2 - 12 mg/dL Leukocytes, UA Negative Negative - 500+++ Ayana/mcL Nitrite, UA Negative Negative - Positive Urine 12/10/2024 10:2 8 AM EDT Erum HAYS POINT OF CARE TEST ENTER/EDIT OR DERABLES Final Result documented in this encounter Visit Diagnoses Diagnosis Size of fetus inconsistent with dates in second trimester ([facility])- Primary Second trimester ([facility]) state, incidental 25 weeks gestation of ([facility]) Diabetes mellitus screening Screening for diabetes mellitus documented in this encounter Care Teams Industrial Production Manager Relationship Specialty Start Date End Date Carrillo White MD [address] [place] [address] PCP - General Internal Medicine 11/29/22 documented as of this encounter
--- OUTSIDE RECORDS SUMMARY | 2024-12-11 14:15 | XMS_ITS | Encounter Summary ---
Author Organization [facility] Address [id number] [address] [place] [address] Care Team Providers Care Mandarin Tutor Name Role Phone Carrillo White MD Primary Care Provider [phone] Reason for Referral * Diagnostic Imaging (Routine) - Pending Review Specialty Diagnoses / Procedures Referred By Contac t Referred To Contact Maternal and Medicine Diagnoses 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 trimester History of prior with IUGR History of premature rupture of membranes Procedures US MFM with or without consult Jacklyn Blakely MD [address], [address] [place] [address] Phone: tel: fax: [facility] [address] [facility] [place] [address] Phone: tel: fax: Referral ID Status Reason Start Date Expiration Date V isits Requested Visits Authorized [id number] Pending Review 11/06/2024 11/06/2025 1 1 Reason for Visit * Diagnostic Imaging (Routine) - Pending Review Specialty Diagnoses / Procedures Referred By Contac t Referred To Contact Maternal and Medicine Diagnoses 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 trimester History of prior with IUGR History of premature rupture of membranes Procedures US MFM with or without consult Jacklyn Blakely MD [address] [facility], [address] [place] [address] Phone: tel: fax: [facility] [address] [place] [address] Phone: tel: fax: Referral ID Status Reason Start Date Expiration Date V isits Requested Visits Authorized [id number] Pending Review 11/06/2024 11/06/2025 1 1 Encounter Details Date Type Department Care Team (Latest Contact Info) Description 12/11/2024 2:15 PM EDT - 12/11/2024 11:59 PM EDT Hospital Encounter [facility] - Ultrasound [address] [place] [address] 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 trimester; History of prior with IUGR ; History of premature rupture of membranes Discharge Disposition: Home Social History Tobacco Use Types Packs/Day Years Used Date Smoking Tobacco: Never Smokeless Tobacco: Never Alcohol Use Standard Drinks/Week Comments Not Currently 0 (1 standard drink = 0.6 oz pur e alcohol) Atlantic Depression Scale Answer Date Recorded Atlantic Depression Scale Total 6 06/04/2021 The thought [...] as of this encounter Plan of Treatment Pending Results Name Type Priority Associated Diagnoses Date /Time US MFM with or without consult Imaging Routine 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 trimester History of prior with IUGR History of premature rupture of membranes 12/11/2024 3:04 PM EDT Scheduled Orders Name Type Priority Associated Diagnoses Orde r Schedule US MFM with or without consult Imaging Routine 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 trimester History of prior with IUGR History of premature rupture of membranes Once for 1 Occurrences starting 12/11/2024 until 12/11/2024 documented as of this encounter Visit Diagnoses Diagnosis 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 trimester History of prior with IUGR History of premature rupture of membranes documented in this encounter Care Teams Mandarin Tutor Relationship Specialty Start Date End Date Carrillo White MD PCP - General Internal Medicine 04/07/21 documented as of this encounter
--- OUTSIDE RECORDS SUMMARY | 2024-12-12 08:24 | XMS_ITS | Encounter Summary ---
Author Organization [facility] Address [address] [place] [address] Care Team Providers Care Brewery Worker Name Role Phone Carrillo White MD Primary Care Provider [phone] Encounter Details Date Type Department Care Team ([facility] Contact Info) Description 12/11/2024 Telephone [facility] Augustina FUENTES [address] [place] [address] Erum Guidry PA [address] [place] [address] Social History Tobacco Use Types Packs/Day Years [...] Telephone Encounter - Carmita Tapia LPN - 12/11/2024 2:55 PM EDT Patient was called detailed message was left to make aware of results and that we will be sending the 3 hour to [facility] and she can call to Pre-register and schedule this test. If any questions reach outto office. documented in this encounter Plan of Treatment Upcoming Encounters Date Type Department Care Team (Late st Contact Info) Description 12/31/2024 10:30 AM EDT Ancillary Procedure UMESH FUENTES [address] [place] [phone] 12/31/2024 11:00 AM EDT Routine [facility]OM[facility] FUENTES [address] [place] [phone] Santosh Marshall DO [address] [facility] [place] [address] Scheduled Orders Name Type Priority Associated Diagnoses Orde r Schedule Glucose tolerance, 3 hours Lab Routine Elevated glucose tolerance test Expected: 12/11/2024 (Approximate), Expires: 12/11/2025 documented as of this encounter Visit Diagnoses Diagnosis Elevated glucose tolerance test Impaired glucose tolerance test documented in this encounter Care Teams Brewery Worker Relationship Specialty Start Date End Date Carrillo White MD [address] [place] [address] PCP - General Internal Medicine 11/29/22 documented as of this encounter
--- OUTSIDE RECORDS SUMMARY | 2024-12-12 08:24 | XMS_ITS | Clinical Summary ---
Author Organization [place] [facility] Address [id number] [address] [place] [address] Care Team Providers Care Glass Selector Name Role Phone Carrillo White MD Primary Care Provider [phone] Allergies No known active allergies Medications PNV [...] Encounters Date Type Department Care Team Description 12/11/2024 2:15 PM EDT - 12/11/2024 11:59 PM EDT Hospital Encounter [facility] - Ultrasound [address] [place] [address] 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 trimester; History of prior with IUGR ; History of premature rupture of membranes Discharge Disposition: Home 12/11/2024 Travel 11/27/2024 3:15 PM EDT - 11/27/2024 11:59 PM EDT Hospital Encounter [facility] - Ultrasound [address] [place] [address] 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 trimester; History of prior with IUGR ; History of premature rupture of membranes Discharge Disposition: Home 11/27/2024 Travel 11/20/2024 3:45 PM EDT - 11/20/2024 11:59 PM EDT Hospital Encounter [facility] US Imaging [address] [place] [address] 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 trimester; History of prior with IUGR ; History of premature rupture of membranes Discharge Disposition: Home 11/20/2024 Travel 11/06/2024 Orders Only Maternal- Medicine at [facility] [address] [place] [address] Ayaka Smith RN 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 trimester (Primary Dx); History of prior with IUGR ; History of premature rupture of membranes 11/05/2024 1:00 PM EDT Office Visit Maternal- Medicine at [facility] [address] [place] [address] Antoinette Blakely MD 20 weeks gestation of (Primary Dx); Low-lying placenta; 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 trimester; History of prior with IUGR ; Family history of autism; History of gestational diabetes in prior , currently ; History of prior with short cervix, currently ; History of premature rupture of membranes 11/05/2024 11:30 AM EDT - 11/05/2024 11:59 PM EDT Hospital Encounter [facility] US Imaging [address] [place] [address] Thyroid disease affecting ; History of prior with IUGR Discharge Disposition: Home 11/05/2024 Travel 09/26/2024 Orders Only Maternal- Medicine at [facility] [address] [place] [address] Ref Prov, Not In System 09/24/2024 Orders Only Maternal- Medicine at [facility] [address] [place] [address] Ref Prov, Not In System 09/24/2024 Abstract Maternal- Medicine at [facility] [address] [place] [address] Antoinette Blakely MD 09/20/2024 Orders Only Maternal- Medicine at [facility] [address] [place] [address] Irene Gutierrez RN Thyroid disease [...] drink = 0.6 oz pur e alcohol) [place] Depression Scale Answer Date Recorded [place] Depression Scale Total 6 06/04/2021 The thought [...] 11/05/2024 11:51 AM EDT Plan of Treatment Health Maintenance Due Date Last Done Comments Pap Smear 2019 Depression Screening 06/04/2022 06/04/2021 Influenza Vaccine 11/19/2024 01/30/2009 Adult BMI Screening 11/05/2025 11/05/2024 Tobacco Screening 11/05/2025 11/05/2024 DTaP,Tdap and Td Vaccines (8 - Td or Tdap) 05/27/2031 05/26/2021, 06/22/2010, 10/16/2003, Additional history exists Medical Devices Not on file Procedures Procedure Name Priority Date/Time Associated Diagnosis Comments [facility] OB TRANSVAGINAL Routine 5 3:49 PM EDT 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 trimester History of prior with IUGR History of premature rupture of membranes [facility] OB TRANSVAGINAL Routine 5 4:16 PM EDT 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 trimester History of prior with IUGR History of premature rupture of membranes [facility] COMPREHENSIVE ANATOMIC SURVEY Routine 11/05/2024 1:27 PM EDT Thyroid disease affecting History of prior with IUGR from Last 3 Months Results * US [facility] OB TRANSVAGINAL (11/27/2024 3:49 PM EDT) Only the most recent of3 resultswithin the time period is included. Anatomical Region Laterality Modality OB-MECHANICAL MAINTENANCE SUPERVISOR Ultrasound 11/27/2024 3:30 PM EDT Narrative 11/27/2024 4:19 PM EDT NAME: KERRY MILLAN : 2000 SEX: F Accession Number: [id number] ORDERING PHYSICIAN: ANTOINETTE BLAKELY REFERRING PHYSICIAN: SHAUNA NAIR Coding ----- --------- Procedures 64733: Transvaginal Ultrasound (OB) Indication ----- --------- Screening for cervical length, History of prior with gestational diabetes, History of prior with IUGR, History of prior with delivery, Hypothyroidism. History ----- --------- OB History 2. Para 1 [id number] Current ----- --------- Cell free DNA low [...] primary OB provider unless otherwise specified by MFM. Results forwarded to ordering provider so they can follow up with the patient as necessary. Procedure Note Osmar Hickman MD - 11/27/2024 NAME: KERRY MILLAN : 2000 SEX: F Accession Number: [id number] ORDERING PHYSICIAN: ANTOINETTE BLAKELY REFERRING PHYSICIAN: SHAUNA NAIR Coding ----- --------- Procedures [id number]: Transvaginal Ultrasound (OB) Indication ----- --------- Screening for cervical length, History of prior with gestationaldiabetes, History of prior with IUGR, History of prior with delivery, Hypothyroidism. History ----- --------- OB History 2. Para 1 [id number] Current ----- --------- Cell free DNA low [...] can follow up with thepatient as necessary. Antoinette Blakely MD [facility] ORDERABLES Final Re sult from Last 3 Months Insurance MICHEL Advance Directives * Full Code (Latest Code [...] 5:01 PM 03/26/2021 7:46 PM Care Teams Glass Selector Relationship Specialty Start Date End Date Carrillo White MD PCP - General Internal Medicine 04/07/21
--- OUTSIDE RECORDS SUMMARY | 2024-12-12 08:25 | XMS_ITS | Encounter Summary ---
Author Organization [facility] Address [address] [facility] [place] [address] Care Team Providers Care Research Test Engine Operator Name Role Phone Carrillo White MD Primary Care Provider [phone] Encounter Details Date Type Department Care Team ([facility] Contact Info) Description 08/28/2024 Abstract [facility] FUENT[facility] [address] [place] [address] Ann Ma MA Social History Tobacco [...] Upcoming Encounters Date Type Department Care Team ([facility] Contact Info) Description 12/31/2024 10:30 AM EDT Ancillary Procedure [facility]UENT[facility] [address] [place] [address] 12/31/2024 11:00 AM EDT Routine [facility] [address] [place] [address] Santosh Marshall DO [address] [place], [place] [phone] documented as of this encounter Visit Diagnoses Not on filedocumented in this encounter Care Teams Research Test Engine Operator Relationship Specialty Start Date End Date Carrillo White MD [address] [place] [address] PCP - General Internal Medicine 11/29/22 documented as of this encounter
--- OUTSIDE RECORDS SUMMARY | 2024-12-12 08:25 | XMS_ITS | Encounter Summary ---
Author Organization [facility] Address [address] [facility] [place] [address] Care Team Providers Care Residential Plumber Name Role Phone Carrillo White MD Primary Care Provider [phone] Encounter Details Date Type Department Care Team ([facility] Contact Info) Description 12/11/2024 Clinisync Result Encounter [facility] External Department Unsolicited Erum Guidry PA [address] [facility] [address] [place], [place] [id number] Social History Tobacco Use Types Packs/Day Years [...] Department Care Team (Late Contact Info) Description 12/31/2024 10:30 AM EDT Ancillary Procedure [facility] Augustina [facility] [address] [facility] [place] [address] 12/31/2024 11:00 AM EDT Routine [facility] Augustina [facility]UENT[facility] [address] [facility] [place] [address] Santosh Marshall DO [address] [place] [address] documented as of this encounter Procedures Procedure Name Priority Date/Time Associated Diagnosis Comments GLUCOSE 1 HOUR Routine 12/11/2024 9:34 AM EDT ALL THYROID STIM HORMONE Routine 12/11/2024 9:34 AM EDT ALL CBC WITH AUTO DIFF Routine 12/11/2024 9:34 AM EDT documented in this encounter Results * ALL THYROID STIM HORMONE (12/11/2024 9:34 AM EDT) THYROID STIMULATING HORMONE 2.184 0.358 - 3.740 uIU/mL [facility] 12/11/2024 9:34 AM EDT 12/11/2024 10:16 AM EDT Narrative [facility] - 12/11/2024 11:07 AM EDT us Santosh Marshall DO [facility] Final Result [facility] TB * (ABNORMAL) GLUCOSE 1 HOUR (12/11/2024 9:34 AM EDT) GLUCOSE 1 HOUR 162(H) <130 mg/dL [facility] 12/11/2024 9:34 AM EDT 12/11/2024 10:16 AM EDT Narrative [facility] - 12/11/2024 10:57 AM EDT us [facility] BLOOD ORDERABLES Final Resul t [facility] TB * (ABNORMAL) ALL CBC WITH AUTO DIFF (12/11/2024 9:34 AM EDT) TB[facility] WBC 8.8 4.0 - 11.0 10 3/uL TBH TBH RBC 3.25(L) 4.20 - 5.40 10 6/uL TBH TBH HGB 10.8(L) 12.0 - 16.0 g/dL TBH TBH HCT 32.4(L) 36.0 - 48.0 % TBH TBH MCV 99.7(H) 81.0 - 99.0 fL TBH TBH MCH 33.2 26.7 - 34.0 pg TBH TBH MCHC 33.3 29.9 - 35.2 g/dL TBH TBH RDW 12.4 11.0 - 15.0 % TBH TBH PLT 303 150 - 450 10 3/uL TBH TBH MPV 10.5 9.5 - 13.5 fL TBH NEUTROPHILS PERCENT AUTO 79.9(H) 43.0 - 75.0 % TBH LYMPHOCYTES PERCENT AUTO 14.4(L) 20.5 - 60.0 % TBH MONOCYTES PERCENT AUTO 4.6 1.7 - 12.0 % TBH TBH EO % 0.5(L) 0.9 - 7.0 % TBH BASOPHILS PERCENT AUTO 0.3 0.2 - 2.0 % TBH IMMATURE GRANULOCYTES PCT AUTO 0.3 0.0 - 0.5 % TBH NEUTROPHILS ABSOLUTE AUTO 7.0(H) 1.4 - 6.5 10 3/uL TBH LYMPHOCYTES ABSOLUTE AUTO 1.3 1.2 - 3.8 10 3/uL TBH MONOCYTES ABSOLUTE AUTO 0.4 0.3 - 0.8 10 3/uL TBH TBH EO # 0.0 0.0 - 0.7 10 3/uL TBH BASOPHILS ABSOLUTE AUTO 0.0 0.0 - 0.1 10 3/uL TBH IMMATURE GRANULOCYTES ABS AUTO 0.03 0.00 - 0.03 10 3/uL [facility]H 12/11/2024 9:34 AM EDT 12/11/2024 10:16 AM EDT Narrative [facility] - 12/11/2024 10:25 AM EDT [facility] Final Result [facility] documented in this encounter Visit Diagnoses Not on filedocumented in this encounter Care Teams Residential Plumber Relationship Specialty Start Date End Date Carrillo White MD [address] [place] [address] PCP - General Internal Medicine 11/29/22 documented as of this encounter
--- OUTSIDE RECORDS SUMMARY | 2024-12-12 08:25 | XMS_ITS | Encounter Summary ---
Author Organization [facility] Address [address] [place] [address] Care Team Providers Care Building Cleaner Name Role Phone Carrillo White MD Primary Care Provider [phone] Encounter Details Date Type Department Care Team (Late Contact Info) Description 11/27/2024 Abstract [facility] [place] [address] Santosh Marshall DO [address] [facility] [address] [place], [place] [id number] Social History Tobacco Use Types Packs/Day Years [...] 10:30 AM EDT Ancillary Procedure UMESH FUENTES [facility] [place] [id number] 12/31/2024 11:00 AM EDT Routine UM[facility] FUENTES [facility] [place] [address] Santosh Marshall, [address] [place] [address] documented as of this encounter Visit Diagnoses Not on filedocumented in this encounter Care Teams Building Cleaner Relationship Specialty Start Date End Date Carrillo White MD [address] [place] [address] PCP - General Internal Medicine 11/29/22 documented as of this encounter
--- OUTSIDE RECORDS SUMMARY | 2024-12-12 08:25 | XMS_ITS | Clinical Summary ---
Author Organization [facility] Address [address] [place] [address] Care Team Providers Care Materials Planning Manager Name Role Phone Carrillo White MD Primary Care Provider [phone] Allergies No known active allergies Medications levothyroxine (Synthroid) 125 MCG tabletIndication s:Thyroid disease Take 1 tablet (125 mcg) by mouth in the morning. Take before meals. 30 tablet 11 09/17/2024 Active MV-Min-Fe Fum-FA-DHA ( 1 PO) Take by mouth Active Encounters Date Type Department Care Team Description 12/11/2024 Telephone [facility] Augustina FUENTES [address] [place] [address] [place] [address] Erum Guidry PA 12/11/2024 Clinisync Result Encounter NOMS External Department Unsolicited Erum Guidry PA 12/10/2024 10:00 AM EDT Routine [facility] Augustina FUENTES [address] [place] [address] [place] [address] Erum Guidry PA Size of fetus inconsistent with dates in second trimester ([facility]) (Primary Dx); Second trimester ([facility]); 25 weeks gestation of ([facility]); Diabetes mellitus screening 12/10/2024 Bamboo flowsheet [facility] Augustina Giles [facility] [place] [address] Erum Guidry PA 11/28/2024 Abstract [facility] [address] [facility] [place] [address] Shauna Marshall, 11/27/2024 Abstract [facility] [address] [facility] [place] [address] Shauna Marshall, 11/23/2024 Abstract [facility] [address] [facility] [place] [address] Ann Ma MA 11/12/2024 11:10 AM EDT Routine [facility] [address] [facility] [place] [address] Shauna Marshall, Hypothyroidism, unspecified type (Primary Dx); Second trimester ([facility]); 21 weeks gestation of ([facility]); Vaginal discharge; STD exposure 11/12/2024 Bamboo flowsheet [facility] [address] [facility] [place] [address] Shauna Marshall, 11/07/2024 Clinisync Result Encounter NOMS External Department Unsolicited Shauna Marshall, 11/05/2024 Abstract [facility] [address] [facility] [place] [address] Shauna Marshall, 11/05/2024 External Result Encounter [facility] [address] [facility] [place] [address] Shauna Marshall, 10/15/2024 9:50 AM EDT Routine [facility] [address] [facility] [place] [address] Erum Guidry PA Second trimester ([facility]); 17 weeks gestation of ([facility]) 10/15/2024 Clinisync Result Encounter NOMS External Department Unsolicited Erum Guidry PA 10/15/2024 Bamboo flowsheet [facility] [address] [facility] [place] [address] Erum Guidry PA 10/02/2024 Clinisync Result Encounter NOMS External Department Unsolicited Shauna Marshall, DO 09/24/2024 Clinisync Result Encounter NOMS External Department Unsolicited Shauna Marshall, DO 09/19/2024 Telephone [facility] [address] [place] [address] [phone] Shauna Marshall, DO 09/17/2024 10:50 AM EDT Routine [facility] [address] [place] [address] [phone] Shauna Marshall, DO 13 weeks gestation of ([facility]); Second trimester ([facility]); Thyroid disease ; History of prior with IUGR ; Diabetes mellitus screening 09/17/2024 Telephone [facility] [address] [facility] [place] [address] [phone] Aliya Jeronimo LPN 09/17/2024 Bamboo flowsheet [facility] [address] [facility] [place] [address] [phone] Shauna Marshall, DO 09/12/2024 Clinisync Result Encounter [facility]OMS External Department Unsolicited Shauna Marshall, DO 09/11/2024 Telephone [facility] [address] [facility] [place] [address] [phone] Shauna Marshall, DO 09/11/2024 Telephone [facility] [address] [facility] [place] [address] [phone] Brit Alamo MA 09/11/2024 Telephone [facility] [address] [place] [address] [phone] Brit Alamo MA from Last 3 Months Family History Medical [...] (149 lb) 12/10/2024 10:23 AM EDT Height 165.1 cm (5' 5 ) 11/29/2022 3:23 PM EDT Body Mass Index 24.79 11/29/2022 3:23 PM EDT Plan of Treatment Upcoming Encounters Date Type Department Care Team (Late st Contact Info) Description 12/31/2024 10:30 AM EDT Ancillary Procedure [facility] [address] [facility] [place] [address] 12/31/2024 11:00 AM EDT Routine [facility]ESH [facility] [address] [facility] [place] [address] Shauna Marshall DO [address] [place] [address] Procedures Procedure Name Priority Date/Time Associated Diagnosis Comments ALL THYROID STIM HORMONE Routine 12/11/2024 9:34 AM EDT GLUCOSE 1 HOUR Routine 12/11/2024 9:34 AM EDT ALL CBC WITH AUTO DIFF Routine 9:34 AM EDT POCT URINALYSIS DIPSTICK Routine 12/10/2024 10:28 AM EDT Second trimester ([facility]) RECURRENT VAGINITIS (HTRX) Routine 11/12/2024 12:29 PM EDT POCT URINALYSIS DIPSTICK Routine 11/12/2024 11:49 AM EDT Second trimester ([facility]) 21 weeks gestation of ([facility]) ALL THYROID STIM HORMONE Routine 11/07/2024 1:03 PM EDT US OB 14+ WEEKS ANATOMY SCAN 11/05/2024 5:31 PM EDT AFP, SERUM, OPEN SPINA BIFIDA Routine 10/15/2024 11:03 AM EDT POCT URINALYSIS DIPSTICK Routine 10/15/2024 10:19 AM EDT 17 weeks gestation of ([facility]) GLUCOSE 1 HOUR Routine 10/02/2024 10:33 AM EDT ALL MISCELLANEOUS TEST Routine 12:40 PM EDT ALL MISCELLANEOUS TEST Routine 4:33 PM EDT from Last 3 Months Results * (ABNORMAL) GLUCOSE 1 HOUR (12/11/2024 9:34 AM EDT) Only the most recent of2 resultswithin the time period is included. GLUCOSE 1 HOUR 162(H) <130 mg/dL [facility] 12/11/2024 9:34 AM EDT 12/11/2024 10:16 AM EDT Narrative [facility] - 12/11/2024 10:57 AM EDT Erum HAYS LAB BLOOD ORDERABLES Final Resul t [place] * ALL THYROID STIM HORMONE (12/11/2024 9:34 AM EDT) Only the most recent of2 resultswithin the time period is included. THYROID STIMULATING HORMONE 2.184 0.358 - 3.740 uIU/mL [facility] 12/11/2024 9:34 AM EDT 12/11/2024 10:16 AM EDT Narrative [facility] - 12/11/2024 11:07 AM EDT us Shauna Bhaktao DO CL[facility] Final Result [facility] * (ABNORMAL) ALL CBC WITH AUTO DIFF (12/11/2024 9:34 AM EDT) TB WBC 8.8 4.0 - 11.0 10 3/uL [...] Narrative [facility] - 12/11/2024 10:25 AM EDT us Erum HAYS [facility] Final Result [facility] * POCT urinalysis dipstick manually resulted (12/10/2024 10:28 AM EDT) Only the most recent of3 resultswithin the time period is included. Color, [...] Positive Urine 12/10/2024 10:2 8 AM EDT us Erum HAYS POINT OF CARE TEST ENTER/EDIT OR DERABLES Final Result * RECURRENT VAGINITIS (HTRX) (11/12/2024 12:29 PM EDT) [facility] ATOPOBIUM VAGINAE 0 19.961 - 24.689 ppm 11/13/2024 7:10 AM EDT [facility] ATOPOBIUM VAGINAE Not Detected 19.961 - 24.689 ppm 11/13/2024 7:10 AM EDT [facility] BVAB 2,3 (BACTERIAL VAGINOSIS ASSOCIATED BACTERIA 2, 3); MOBILUNCUS SPP 0 19.961 - 24.689 ppm 11/13/2024 7:10 AM EDT [facility] BVAB 2,3 (BACTERIAL VAGINOSIS ASSOCIATED BACTERIA 2, 3); MOBILUNCUS SPP Not Detected 19.961 - 24.689 ppm 11/13/2024 7:10 AM EDT [facility] RUY ALBICANS, PARAPSILOSIS, TROPICALIS 0 23.000 - 30.347 ppm 11/13/2024 7:10 AM EDT [facility] RUY ALBICANS, PARAPSILOSIS, TROPICALIS Not Detected 23.000 - 30.347 ppm 11/13/2024 7:10 AM EDT [facility] RUY GLABRATA 0 23.000 - 31.618 ppm 11/13/2024 7:10 AM EDT [facility] RUY GLABRATA Not Detected 23.000 - 31.618 ppm 11/13/2024 7:10 AM EDT [facility] RUY KRUSEI 0 23.000 - 30.873 ppm 11/13/2024 7:10 AM EDT [facility] RUY KRUSEI Not Detected 23.000 - 30.873 ppm 11/13/2024 7:10 AM EDT [facility] CHLAMYDIA TRACHOMATIS 0 23.000 - 31.586 ppm 11/13/2024 7:10 AM EDT [facility] CHLAMYDIA TRACHOMATIS Not Detected 23.000 - 31.586 ppm 11/13/2024 7:10 AM EDT [facility] GARDNERELLA VAGINALIS 0 19.961 - 24.689 ppm 11/13/2024 7:10 AM EDT [facility] GARDNERELLA VAGINALIS Not Detected 19.961 - 24.689 ppm 11/13/2024 7:10 AM EDT [facility] MEGASPHAERA (TYPES 1, 2) 0 19.961 - 24.689 ppm 11/13/2024 7:10 AM EDT [facility] DELIASPHAERA (TYPES 1, 2) Not Detected 19.961 - 24.689 ppm 11/13/2024 7:10 AM EDT [facility] NEISSERIA GONORRHOEAE 0 23.000 - 32.587 ppm 11/13/2024 7:10 AM EDT [facility] NEISSERIA GONORRHOEAE Not Detected 23.000 - 32.587 ppm 11/13/2024 7:10 AM EDT [facility] TRICHOMONAS VAGINALIS 0 23.000 - 31.995 ppm 11/13/2024 7:10 AM EDT [facility] TRICHOMONAS VAGINALIS Not Detected 23.000 - 31.995 ppm 11/13/2024 7:10 AM EDT [facility] MYCOPLASMA GENITALIUM 0 19.961 - 24.689 ppm 11/13/2024 7:10 AM EDT [facility] MYCOPLASMA GENITALIUM Not Detected 19.961 - 24.689 ppm 11/13/2024 7:10 AM EDT [facility] Tissue 11/12/2024 12:2 9 PM EDT 11/13/2024 1:13 AM EDT us Shauna Joanna DO LAB BLOOD ORDERABLES Final Resul t [facility] [address] [address] * US OB 14+ weeks anatomy scan (11/05/2024 5:31 PM EDT) Anatomical Region Laterality Modality Body Ultrasound 11/05/2024 5:31 PM EDT Narrative 11/05/2024 5:31 PM EDT THIS EXAM WAS PERFORMED AT [facility] NAME: KERRY MILLAN : 2000 SEX: F Accession Number: [id number] ORDERING PHYSICIAN: HSAUNA MARSHALL REFERRING PHYSICIAN: SHAUNA MARSHALL Coding ----- --------- Procedures [id number]: Ultrasound, uterus, real time with image documentation, and maternal evaluation plus detailed anatomic examination, transabdominal approach;single or first gestation [id number]: Transvaginal Ultrasound (OB) Indication ----- --------- Screening for Anatomic Survey, Screening for cervical length, History of prior with gestational diabetes, History of prior with IUGR, History of prior with delivery, Hypothyroidism, Malformation of placenta- Low lying. History ----- --------- OB History 2. Para 1 [id number] Current ----- --------- Cell free DNA low [...] EFW (oz) 12 oz EFW by: Hadlock ([id number]) Extended Tibia 28.7 mm 20w 3d 62% Joanei Debridging Machine Operator 5.7 mm CM 5.3 mm 58% Nicolaides [...] Mandible. Orbits. Heart / Thorax 3-vessel view. 3-ejyzzr-dprlied view. Ductal arch view. Great vessels. Maternal [...] - 11/05/2024 THIS EXAM WAS PERFORMED AT [facility] NAME: KERRY MILLAN : 2000 SEX: F Accession Number: [id number] ORDERING PHYSICIAN: SHAUNA MARSHALL REFERRING PHYSICIAN: SHAUNA MARSHALL Coding ----- --------- Procedures [id number]: Ultrasound, uterus, real time with imagedocumentation, and maternal evaluation plus detailed anatomic examination, transabdominalapproach;single or first gestation 73888: Transvaginal Ultrasound (OB) Indication ----- --------- Screening for Anatomic Survey, Screening for cervical length, History ofprior with gestational diabetes, History of prior with IUGR, History of prior with pretermdelivery, Hypothyroidism, Malformation of placenta- Low lying. History ----- --------- OB History 2. Para 1 [id number] Current ----- --------- Cell free DNA low [...] EFW (oz) 12 oz EFW by: Hadlock (ZLM-[id number]-IY-FL) Extended Tibia 28.7 mm 20w 3d 62% Joanie Debridging Machine Operator 5.7 mm CM 5.3 mm 58% Nicolaides [...] Mandible. Orbits. Heart / Thorax 3-vessel view. 0-zormod-xmfshot view. Ductal arch view.Great vessels. Maternal Structures [...] cervical os. Recommendations ----- --------- Please see [facility] documentation from today. The patient is scheduled in two and three weeks for transvaginalultrasound to evaluate placental location. The patient is scheduled in four to six week(s) to complete anatomicsurvey. Subsequent follow up or other follow up as clinically determined byprimary OB provider unless otherwise specified by [facility]. Results forwarded to ordering provider so they can follow up with thepatient as necessary. us Shauna Marshall DO IM OB US PROCEDURES Final Resul t * AFP, SERUM, OPEN SPINA BIFIDA (10/15/2024 11:03 AM EDT) RESULTS Report . [facility] TEST RESULTS: *Screen Negative* . [facility] GEST. AGE ON COLLECTION DATE 17.3 . weeks [facility] GESTAT. AGE BASED ON LMP . [facility] Comment: Recalculations are not recommended when gestational dating by LMP and ultrasound are within 10 days. [age]ATO [age] [facility] RACE . [facility] WEIGHT 134 . lbs [facility] INSULIN DEP DIABETES No . [facility] MULTIPLE GESTATION No . [facility] AFP VALUE 34.7 . ng/mL [facility] AFP MOM 0.82 . [facility] OSBR RISK 1 [place] [address] . [facility] INTERPRETATION Comment . [facility] Comment: Interpretation: Screen Negative This result [...] Customer Services to discuss available options. The [place] [employer] recommends amniocentesis be offered to women age 35 and older. COMMENT: Comment . [facility] Comment: Alie Moon, Ph.D., [facility] Director References: Available Upon Request. Multiples Of Median Cutoffs For AFP Elevations Ogrman 2.5 Black 2.8 IDD 2.0 Twins 4.5 Abbreviation Definitions IDD - Insulin Dep Diabetes OSBR - Open Spina Bifida Risk For further inquiries contact [facility] Services at [phone]. This test was developed and its performance characteristics determined by [facility]. It has not been cleared or approved by the Food and Drug Administration. Performed at: [facility] [address] [place], [place] [id number] Client Development Director: Pily Meraz [facility], Phone: [phone] 10/15/2024 11:0 3 AM EDT 10/15/2024 11:04 AM EDT [facility]/17[facility] 1:07 AM EDT N N LMP [id number] 2 17 N 1 Y 134 N N N N N White/ Erum HAYS LAB BLOOD ORDERABLES Final Resul t [facility] * ALL MISCELLANEOUS TEST (09/24/2024 12:40 PM EDT) Only the most recent of2 resultswithin the time period is included. Pathologist [facility] MISCELLANEOUS TEST COMMENT . [facility] Comment: Test Ordered: [id number] Parvovirus B19, Human, IgG/IgM Parvovirus B19, IgG 0.1 index Reference Range: 0.0-0.8 Negative <0.9 Equivocal 0.9 - 1.1 Positive >1.1 Parvovirus B19, IgM 0.1 index Reference Range: 0.0-0.8 Negative <0.9 Equivocal 0.9 - 1.1 Positive >1.1 Performed at: [address] [id number] Client Development Director: Darion Moon MD, Phone: [phone] Performed at: [address] [id number] Client Development Director: Madi Maloney PhD, Phone: [phone] 09/24/2024 12:4 0 PM EDT 09/24/2024 12:41 PM EDT Narrative [facility] - 09/26/2024 2:09 PM EDT [id number] Parvovirus B19 (Human), IgG, IgM us Shauna Marshall DO [facility] Final Result [facility] from Last 3 Months Insurance BS Care Teams Materials Planning Manager Relationship Specialty Start Date End Date Carrillo White MD [address] [place] [address] PCP - General Internal Medicine 11/29/22
--- OUTSIDE RECORDS SUMMARY | 2024-12-12 08:25 | XMS_ITS | Encounter Summary ---
Author Organization [facility] Address [id number] [address] [place] [address] Care Team Providers Care Stone Spreader Operator Name Role Phone Carrillo White MD Primary Care Provider [phone] Encounter Details Date Type Department Care Team (Late st Contact Info) Description 05/25/2021 Orders Only Maternal- Medicine at [facility] [address] [place] [address] Yessica Sinha CMA Social History Tobacco Use [...] on file documented as of this encounter Visit Diagnoses Not on filedocumented in this encounter Care Teams Stone Spreader Operator Relationship Specialty Start Date End Date Carrillo White MD PCP - General Internal Medicine 04/07/21 documented as of this encounter
--- OUTSIDE RECORDS SUMMARY | 2024-12-12 08:26 | XMS_ITS | Encounter Summary ---
Author Organization [facility] Address [facility][id number] [address] [place] [address] Care Team Providers Care Employment Recruiter Name Role Phone Carrillo White MD Primary Care Provider [phone] Encounter Details Date Type Department Care Team (Late st Contact Info) Description 09/26/2024 Orders Only Maternal- Medicine at [facility] [address] [place] [address] Ref Prov, [place] [address] Social History Tobacco Use Types Packs/Day Years Used Date Smoking Tobacco: Never Smokeless Tobacco: Never Alcohol Use Standard Drinks/Week Comments Not Currently 0 (1 standard drink = 0.6 oz pur e alcohol) Gile Depression Scale Answer Date Recorded Gile Depression Scale Total 6 06/04/2021 The thought [...] on filedocumented in this encounter Care Teams Employment Recruiter Relationship Specialty Start Date End Date Carrillo White MD PCP - General Internal Medicine 04/07/21 documented as of this encounter
--- OUTSIDE RECORDS SUMMARY | 2024-12-12 08:26 | XMS_ITS | Encounter Summary ---
Author Organization [employer] Address [facility]-[id number] [address] [place] [address] Care Team Providers Care Manager Market Intelligence Name Role Phone Carrillo White MD Primary Care Provider [phone] Encounter Details Date Type Department Care Team (Late st Contact Info) Description 01/26/2021 Telephone [facility] [address] [place] [address] [address] [place] [address] No Pcp, [place] [address] Social History Tobacco Use Types Packs/Day Years [...] documented as of this encounter Care Teams Manager Market Intelligence Relationship Specialty Start Date End Date Carrillo White MD PCP - General Internal Medicine 04/07/21 documented as of this encounter
--- OUTSIDE RECORDS SUMMARY | 2024-12-12 08:26 | XMS_ITS | Encounter Summary ---
Author Organization [facility] Address [address] [facility] [place] [address] Care Team Providers Care Billing Customer Service Representative Name Role Phone Carrillo White MD Primary Care Provider [phone] Encounter Details Date Type Department Care Team ([facility] Contact Info) Description 12/19/2023 Orders Only [facility] Augustina [facility]ES [address] [facility] [place] [address] Carmita Tapia LPN [address] [facility] [place] [address] Social History Tobacco Use Types Packs/Day Years [...] Upcoming Encounters Date Type Department Care Team ([facility] Contact Info) Description 12/31/2024 10:30 AM EDT Ancillary Procedure [facility] Augustina FUENTES [address] [place] [address] 12/31/2024 11:00 AM EDT Routine [facility] Augustina FUENTES [address] [facility] [place] [address] Santosh Marshall, [address] [facility] [place] [address] documented as of this encounter Procedures Procedure Name Priority Date/Time Associated Diagnosis Comments PAP SMEAR Routine 12/12/2023 12:00 AM EDT documented in this encounter Results * Pap Smear (12/12/2023 12:00 AM EDT) Swab Cervical swab / Unknown Joanna Nurse [facility] Ob LAB CYTOLOGY ORDERABLES Final Result Performing Organization Address City/State/[facility] Co de Phone Number EXTERNAL LAB documented in this encounter Visit Diagnoses Not on filedocumented in this encounter Care Teams Billing Customer Service Representative Relationship Specialty Start Date End Date Carrillo White MD [address] [place] [address] PCP - General Internal Medicine 11/29/22 documented as of this encounter
--- OUTSIDE RECORDS SUMMARY | 2024-12-12 08:26 | XMS_ITS | Encounter Summary ---
Author Organization [employer] Address [facility]-[id number] [address] [place] [address] Care Team Providers Care Chinese Language Professor Name Role Phone Carrillo White MD Primary Care Provider [phone] Encounter Details Date Type Department Care Team (Latest Contact Info) Description 12/11/2024 Travel Social History Tobacco Use Types Packs/Day Years Used Date Smoking Tobacco: Never Smokeless Tobacco: Never Alcohol Use Standard Drinks/Week Comments Not Currently 0 (1 standard drink = 0.6 oz pur e alcohol) Milo Depression Scale Answer Date Recorded Milo Depression Scale Total 6 06/04/2021 The thought [...] on filedocumented in this encounter Care Teams Chinese Language Professor Relationship Specialty Start Date End Date Carrillo White MD PCP - General Internal Medicine 04/07/21 documented as of this encounter
--- OUTSIDE RECORDS SUMMARY | 2024-12-12 08:26 | XMS_ITS | Encounter Summary ---
Author Organization [facility] Address [address] [facility] [place] [address] Care Team Providers Care Psychologist Clinical Name Role Phone Carrillo White MD Primary Care Provider [phone] Encounter Details Date Type Department Care Team ([facility] Contact Info) Description 12/10/2024 Bamboo flowsheet NOMDwain FUENTES [address] [place] [address] [place] [address] Erum Guidry PA [address] [place] [address] [address] [place], [place] [address] Social History Tobacco Use Types Packs/Day Years [...] Upcoming Encounters Date Type Department Care Team ([facility] Contact Info) Description 12/31/2024 10:30 AM EDT Ancillary Procedure UMESH FUENTES [address] [place], [place] [address] [address] 12/31/2024 11:00 AM EDT Routine NOMDwain FUENTES [address] [place] [address] [place] [address] Santosh Marshall [address] [place] [address] documented as of this encounter Visit Diagnoses Not on filedocumented in this encounter Care Teams Psychologist Clinical Relationship Specialty Start Date End Date Carrillo White MD [address] [place] [address] PCP - General Internal Medicine 11/29/22 documented as of this encounter
--- OUTSIDE RECORDS SUMMARY | 2024-12-12 08:26 | XMS_ITS | Encounter Summary ---
Author Organization [facility] Address [id number] [address] [place] [address] Care Team Providers Care Field Services Analyst Name Role Phone Carrillo White MD Primary Care Provider [phone] Encounter Details Date Type Department Care Team (Late st Contact Info) Description 12/22/2020 Orders Only Maternal- Medicine at [facility] [address] [place] [address] Santosh Marshall, DO [address] [place] [address] [place] [address] Social History Tobacco Use Types Packs/Day Years [...] encounter Results * Free Cell DNA (12/14/2020) Santosh R Joanna DO LAB BLOOD ORDERABLES [...] documented as of this encounter Care Teams Field Services Analyst Relationship Specialty Start Date End Date Carrillo White MD PCP - General Internal Medicine 04/07/21 documented as of this encounter
--- OUTSIDE RECORDS SUMMARY | 2024-12-12 08:26 | XMS_ITS | Encounter Summary ---
Author Organization [facility] Address [address] [place] [address] Care Team Providers Care Building Rental Manager Name Role Phone Carrillo White MD Primary Care Provider [phone] Encounter Details Date Type Department Care Team (Late Contact Info) Description 11/05/2024 Abstract [facility] [place] [address] Santosh Marshall DO [address] [place], [place] [id number] Social History Tobacco Use Types Packs/Day Years [...] 10:30 AM EDT Ancillary Procedure UM[facility] F[facility]ENTES [facility] [place] [phone] 12/31/2024 11:00 AM EDT Routine UM[facility]ES [facility] [place] [address] Santosh Marshall, [address] [place] [address] documented as of this encounter Visit Diagnoses Not on filedocumented in this encounter Care Teams Building Rental Manager Relationship Specialty Start Date End Date Carrillo White MD [address] [place] [address] PCP - General Internal Medicine 11/29/22 documented as of this encounter
--- OUTSIDE RECORDS SUMMARY | 2024-12-12 08:26 | XMS_ITS | Encounter Summary ---
Author Organization [facility] Address [address] [facility] [place] [address] Care Team Providers Care Screen Repairer Crusher Name Role Phone Carrillo White MD Primary Care Provider [phone] Encounter Details Date Type Department Care Team (Late Contact Info) Description 11/28/2024 Abstract UMESH FUENTES [facility] [place] [address] Santosh Marshall DO [address] [place], [place] [id number] Social History Tobacco Use Types Packs/Day Years [...] 10:30 AM EDT Ancillary Procedure UMESH FUENTES [facility] [place] [phone] 12/31/2024 11:00 AM EDT Routine UM[facility] F[facility] [place] [address] Santosh Marshall, [address] [place] [address] documented as of this encounter Visit Diagnoses Not on filedocumented in this encounter Care Teams Screen Repairer Crusher Relationship Specialty Start Date End Date Carrillo White MD [address] [place] [address] PCP - General Internal Medicine 11/29/22 documented as of this encounter
--- OUTSIDE RECORDS SUMMARY | 2024-12-12 08:26 | XMS_ITS | Encounter Summary ---
Author Organization [facility] Address [address] [facility] [place] [address] Care Team Providers Care Concrete Curer Name Role Phone Carrillo White MD Primary Care Provider [phone] Encounter Details Date Type Department Care Team ([facility] Contact Info) Description 11/23/2024 Abstract UMESH FUENTES [address] [place] [address] Ann Ma MA Social History Tobacco [...] Encounters Date Type Department Care Team ([facility] Contact Info) Description 12/31/2024 10:30 AM EDT Ancillary Procedure [facility] [address] [place] [address] 12/31/2024 11:00 AM EDT Routine [facility] [address] [place] [address] Santosh Marshall DO [address] [place], [place] [id number] documented as of this encounter Visit Diagnoses Not on filedocumented in this encounter Care Teams Concrete Curer Relationship Specialty Start Date End Date Carrillo White MD [address] [place] [address] PCP - General Internal Medicine 11/29/22 documented as of this encounter
--- OUTSIDE RECORDS SUMMARY | 2024-12-12 08:27 | XMS_ITS | Encounter Summary ---
Author Organization [facility] Address [address] [facility] [place] [address] Care Team Providers Care Investment Representative Name Role Phone Carrillo White MD Primary Care Provider [phone] Encounter Details Date Type Department Care Team ([facility] Contact Info) Description 11/05/2024 External Result Encounter [facility] [place] [address] Shauna Marshall DO [address] [place], [place] [address]Sandi [place], [facility] Social History Tobacco Use Types Packs/Day Years [...] Encounters Date Type Department Care Team ([facility] Contact Info) Description 12/31/2024 10:30 AM EDT Ancillary Procedure UMESH FUENTES [facility] [place] [phone] 12/31/2024 11:00 AM EDT Routine [facility]ES [facility] [place] [address] Shauna Marshall, DO [address] [place] [address] Dr [address] [place] [id number] documented as of this encounter Procedures Procedure Name Priority Date/Time Associated Diagnosis Comments RECURRENT VAGINITIS (HTRX) Routine 11/12/2024 12:29 PM EDT US OB 14+ WEEKS ANATOMY SCAN 11/05/2024 5:31 PM EDT documented in this encounter Results * RECURRENT VAGINITIS (HTRX) (11/12/2024 12:29 PM EDT) [facility] ATOPOBIUM VAGINAE 0 19.961 - 24.689 ppm 11/13/2024 7:10 AM EDT [facility] ATOPOBIUM VAGINAE Not Detected 19.961 - 24.689 ppm 11/13/2024 7:10 AM EDT [facility] BVAB 2,3 (BACTERIAL VAGINOSIS ASSOCIATED BACTERIA 2, 3); MOBILUNCUS SPP 0 19.961 - 24.689 ppm 11/13/2024 7:10 AM EDT [facility] BVAB 2,3 (BACTERIAL VAGINOSIS ASSOCIATED BACTERIA 2, 3); MOBILUNCUS SPP Not Detected 19.961 - 24.689 ppm 11/13/2024 7:10 AM EDT [facility] RUY ALBICANS, PARAPSILOSIS, TROPICALIS 0 23.000 - 30.347 ppm 11/13/2024 7:10 AM EDT [facility] RUY ALBICANS, PARAPSILOSIS, TROPICALIS Not Detected 23.000 - 30.347 ppm 11/13/2024 7:10 AM EDT [facility] RUY GLABRATA 0 23.000 - 31.618 ppm 11/13/2024 7:10 AM EDT [facility] RUY GLABRATA Not Detected 23.000 - 31.618 ppm 11/13/2024 7:10 AM EDT [facility] RUY KRUSEI 0 23.000 - 30.873 ppm 11/13/2024 7:10 AM EDT [facility] RUY KRUSEI Not Detected 23.000 - 30.873 ppm 11/13/2024 7:10 AM EDT [facility] CHLAMYDIA TRACHOMATIS 0 23.000 - 31.586 ppm 11/13/2024 7:10 AM EDT [facility] CHLAMYDIA TRACHOMATIS Not Detected 23.000 - 31.586 ppm 11/13/2024 7:10 AM EDT [facility] GARDNERELLA VAGINALIS 0 19.961 - 24.689 ppm 11/13/2024 7:10 AM EDT [facility] GARDNERELLA VAGINALIS Not Detected 19.961 - 24.689 ppm 11/13/2024 7:10 AM EDT [facility] MEGASPHAERA (TYPES 1, 2) 0 19.961 - 24.689 ppm 11/13/2024 7:10 AM EDT [facility] MEGASPHAERA (TYPES 1, 2) Not Detected 19.961 - 24.689 ppm 11/13/2024 7:10 AM EDT [facility] NEISSERIA GONORRHOEAE 0 23.000 - 32.587 ppm 11/13/2024 7:10 AM EDT [facility] NEISSERIA GONORRHOEAE Not Detected 23.000 - 32.587 ppm 11/13/2024 7:10 AM EDT [facility] TRICHOMONAS VAGINALIS 0 23.000 - 31.995 ppm 11/13/2024 7:10 AM EDT [facility] TRICHOMONAS VAGINALIS Not Detected 23.000 - 31.995 ppm 11/13/2024 7:10 AM EDT [facility] MYCOPLASMA GENITALIUM 0 19.961 - 24.689 ppm 11/13/2024 7:10 AM EDT [facility] MYCOPLASMA GENITALIUM Not Detected 19.961 - 24.689 ppm 11/13/2024 7:10 AM EDT [facility] Tissue 11/12/2024 12:2 9 PM EDT 11/13/2024 1:13 AM EDT us Shauna Marshall DO LAB BLOOD ORDERABLES Final Resul t [facility] [address] [place] [address] * US OB 14+ weeks anatomy scan (11/05/2024 5:31 PM EDT) Anatomical Region Laterality Modality Body Ultrasound 11/05/2024 5:31 PM EDT Narrative 11/05/2024 5:31 PM EDT THIS EXAM WAS PERFORMED AT [facility] NAME: KERRY MILLAN : 2000 SEX: F Accession Number: [id number] ORDERING PHYSICIAN: SHAUNA MARSHALL REFERRING PHYSICIAN: SHAUNA MARSHALL Coding ----- --------- Procedures 01744: Ultrasound, uterus, real time with image documentation, and maternal evaluation plus detailed anatomic examination, transabdominal approach;single or first gestation 36496: Transvaginal Ultrasound (OB) Indication ----- --------- Screening for Anatomic Survey, Screening for cervical length, History of prior with gestational diabetes, History of prior with IUGR, History of prior with delivery, Hypothyroidism, Malformation of placenta- Low lying. History ----- --------- OB History 2. Para 1 [id number] Current ----- --------- Cell free DNA low [...] EFW (oz) 12 oz EFW by: Hadlock (CUP-PC-YS-FL) Extended Tibia 28.7 mm 20w 3d 62% Joanie Run Lead 5.7 mm CM 5.3 mm 58% Nicolaides [...] Mandible. Orbits. Heart / Thorax 3-vessel view. 2-peptrz-gqjpfiv view. Ductal arch view. Great vessels. Maternal [...] cervical os. Recommendations ----- --------- Please see [facility] documentation from today. The patient is scheduled in two and three weeks for transvaginal ultrasound to evaluate placental location. The patient is scheduled in four to six week(s) to complete anatomic survey. Subsequent follow up or other follow up as clinically determined by primary OB provider unless otherwise specified by [facility]. Results forwarded to ordering provider so they can follow up with the patient as necessary. Procedure Note Radiology, Radiologist, MD - 11/05/2024 THIS EXAM WAS PERFORMED AT [facility] NAME: KERRY MILLAN : 2000 SEX: F Accession Number: [id number] ORDERING PHYSICIAN: SHAUNA MARSHALL REFERRING PHYSICIAN: SHAUNA MARSHALL Coding ----- --------- Procedures 67930: Ultrasound, uterus, real time with imagedocumentation, and maternal evaluation plus detailed anatomic examination, transabdominalapproach;single or first gestation 40999: Transvaginal Ultrasound (OB) Indication ----- --------- Screening for Anatomic Survey, Screening for cervical length, History ofprior with gestational diabetes, History of prior with IUGR, History of prior with pretermdelivery, Hypothyroidism, Malformation of placenta- Low lying. History ----- --------- OB History 2. Para 1 [id number] Current ----- --------- Cell free DNA low [...] EFW (oz) 12 oz EFW by: Hadlock (EED-MN-CW-FL) Extended Tibia 28.7 mm 20w 3d 62% Joanie Run Lead 5.7 mm CM 5.3 mm 58% Nicolaides [...] Mandible. Orbits. Heart / Thorax 3-vessel view. 0-drkgsh-vumlrai view. Ductal arch view.Great vessels. Maternal Structures [...] byprimary OB provider unless otherwise specified by [facility]. Results forwarded to ordering provider so they can follow up with thepatient as necessary. us Shauna Joanna DO IMG OB US PROCEDURES Final Resul t documented in this encounter Visit Diagnoses Not on filedocumented in this encounter Care Teams Investment Representative Relationship Specialty Start Date End Date Carrillo White MD [address] [place] [address] PCP - General Internal Medicine 11/29/22 documented as of this encounter
--- OUTSIDE RECORDS SUMMARY | 2024-12-12 08:27 | XMS_ITS | Encounter Summary ---
Author Organization [facility] Address [id number] [address] [place] [address] Care Team Providers Care Business Advisor Name Role Phone Carrillo White MD Primary Care Provider [phone] Encounter Details Date Type Department Care Team (Late st Contact Info) Description 03/31/2021 Orders Only Maternal- Medicine at [facility] [address] [place] [phone] Cuca Rabago CMA GDM (gestational diabetes mellitus), [...] care documented in this encounter Care Teams Business Advisor Relationship Specialty Start Date End Date Carrillo White MD PCP - General Internal Medicine 04/07/21 documented as of this encounter
--- OUTSIDE RECORDS SUMMARY | 2024-12-12 08:28 | XMS_ITS | CCD ---
Author Organization [facility] Care Team Providers Care Shellacker Name Role Phone JOANNA, DR VILLATORO Admitting [...] Consulting Unavailable JOANNA, DR VILLATORO Admitting Unavailable OJANNA, DR VILLATORO Attending Unavailable JOANNA, DR VILLATORO [...] Admitting Unavailable Norberto, Ya L Attending Unavailable Daniel Gray Attending Unavailable Norberto, Ya L Attending [...] Unavailable Staci White MD Primary Care Provider [phone] Carmita Jurado MD Unavailable CARMITA JURADO Referring [...] Provider UnavailStaci Kirk MD Primary Care Provider [phone] SANTOSH MARSHALL Referring Unavailable STACI WHITE Primary Care Unavailable JACKLYN CAMPOS Attending Unavailable SANTOSH MARSHALL Referring Unavailable STACI WHITE Primary Care Unavailable SANTOSH MARSHALL Referring Unavailable STACI WHITE Primary Care Unavailable SANTOSH MARSHALL Referring Unavailable STACI WHITE Primary Care Unavailable SANTOSH MARSHALL Attending Unavailable ERUM CLEMENTS Attending Unavailable SANTOSH MARSHALL Attending Unavailable ERUM CLEMENTS Attending Unavailable SANTOSH MARSHALL Attending Unavailable Medications [...] day(s), # 28 cap(s), Refills(s) 0, Pharmacy: [facility], 166, cm, 03/09/23 7:33:00 EST, Height/Length [...] BID, 60 EA, Refill(s) 1, [id number], 166, cm, 11/11/22 9:28:00 EDT, Height/Length Dosing, 59.4, kg, 11/11/22 9:28:00 EDT, Weight Dosing Start Date: 11/19/22 Status: Ordered Start: 11-11-2022 hydrocortisone -lidocaine 2.5%-3% rectal gel with applicator 1 carmen, Rectal, BID, 60 EA, Refill(s) 1, [facility], 166, cm, 11/11/22 9:28:00 EDT, Height/Length [...] Daily, # 90 tab(s), Refills(s) 0, Pharmacy: [facility], 166, cm, 08/08/23 15:44:00 EDT, Height/Length [...] Daily, # 90 tab(s), Refills(s) 1, Pharmacy: [facility], 166, cm, 05/16/23 14:25:00 EST, Height/Length Dosing, 56.7, kg, 05/16/23 14:25:00 EST, Weight Dosing Start Date: 05/16/23 Status: Ordered Start: 02-07-2023 take 1 tablet by stephanie th once daily Synthroid 112 mcg Tab 112 mcg = 1 tab(s), Oral, Daily, # 60 tab(s), Refills(s) 0, Pharmacy: [facility], 166, cm, 11/30/22 12:12:00 EDT, Height/Length Dosing, 58.8, kg, 11/30/22 12:12:00 EDT, Weight Dosing Start Date: 02/07/23 Status: Ordered Start: 10-08-2022 take 1 tablet by stephanie th once daily Synthroid 112 mcg Tab 112 mcg = 1 tab(s), Oral, Daily, # 60 tab(s), Refills(s) 0, Pharmacy: [facility], 166, cm, 10/08/22 15:10:00 EDT, Height/Length [...] Daily, # 90 tab(s), Refills(s) 3, Pharmacy: [facility], 166, cm, 05/03/22 14:21:00 EST, Height/Length [...] Daily, # 10 tab(s), Refills(s) 0, Pharmacy: [facility], 166, cm, 12/05/19 13:03:00 EDT, Height/Length [...] day(s), # 9 tab(s), Refills(s) 0, Pharmacy: [facility], 166, cm, 03/09/23 7:33:00 EST, Height/Length Dosing, 58.7, kg, 03/09/23 7:33:00 EST, Weight Dosing Start Date: 03/09/23 Stop Date: 03/12/23 Status: Ordered Start: 02-21-2023 End: 02-24-2023 take 1 tablet by mouth three times daily Pyridium 200 mg Tab 200 mg = 1 tab(s), Oral, TID, X 3 day(s), # 9 tab(s), Refills(s) 0, Pharmacy: [facility], 166, cm, 02/21/23 13:06:00 EST, Height/Length Dosing, 58.6, kg, 02/21/23 13:06:00 EST, Weight Dosing Start Date: 02/21/23 Stop Date: 02/24/23 Status: Ordered PNV no.95/ferrous fum/folic ac ( ORAL) (3 sources) PNV no.95/ferrou s fum/folic ac ( ORAL) Take by mouth in the morning. Active PNV no.95/ferrou s fum/folic ac ( ORAL) Take by mouth daily. Active polyethylene glycol 3350 [id number] mg / potassium chloride 1480 mg / sodium bicarbonate 5720 mg / sodium chloride 17952 mg powder for oral solution (11 sources) Osmotic Laxative Start: 11-30-2022 NuLYMARIA LUZ Lauren ry oral powder for reconstitution See Instructions, 1 EA, Refill(s) 0, Prior to colonoscopy., [facility] #[id number], 166, cm, 11/30/22 12:12:00 EDT, Height/Length Dosing, 58.8, kg, 11/30/22 12:12:00 EDT, Weight Dosing Start Date: 11/30/22 Status: Ordered Quantity: 1.0 Unit: EA Repeat number: 1 MV-Min-Fe Fum-FA-DHA ( 1 PO) (11 sources) MV-Min- Fe Fum-FA-DHA ( 1 PO) [...] day(s), # 10 cap(s), Refills(s) 0, Pharmacy: [facility], 166, cm, 02/21/23 13:06:00 EST, Height/Length [...] Name Value Interpretation Reference Range Facil ity ALL CBC WITH AUTO DIFFon BASOPHILS ABSOLUTE AUTO 0 [facility] Basophils/100 WBC (Bld) 0.3 % 0.2 - 2.0 % [facility] Eosinophils/100 WBC (Bld) 0.5 % Low 0.9 - 7.0 % [facility] Erythrocyte distribution width (RBC) [Ratio] 12.4 % 11.0 - 15.0 % [facility] Hematocrit (Bld) [Volume fraction] 32.4 % Low 36.0 - 48.0 % [facility] Hemoglobin (Bld) [Mass/Vol] 10.8 g/dL Low 12.0 - 16.0 g/dL [facility] IMMATURE GRANULOCYTES ABS AUTO 0.03 [facility] Immature granulocytes/100 WBC (Bld) 0.3 % 0.0 - 0.5 % [facility] Interpretation and review of laboratory results Abnormal [facility] LYMPHOCYTES ABSOLUTE AUTO 1.3 [facility] Lymphocytes/100 WBC (Bld) 14.4 % Low 20.5 - 60.0 % [facility] MCH (RBC) [Entitic mass] 33.2 pg 26.7 - 34.0 pg [facility] MCHC (RBC) [Mass/Vol] 33.3 g/dL 29.9 - 35.2 g/dL [facility] MCV (RBC) [Entitic vol] 99.7 fL High 81.0 - 99.0 fL [facility] MONOCYTES ABSOLUTE AUTO 0.4 [facility] Monocytes/100 WBC (Bld) 4.6 % 1.7 - 12.0 % [facility] NEUTROPHILS ABSOLUTE AUTO 7 High [facility] Neutrophils/100 WBC (Bld) 79.9 % High 43.0 - 75.0 % [facility] Platelet mean volume (Bld) [Entitic vol] 10.5 fL 9.5 - 13.5 fL [facility] TBH EO # 0 [facility] TB PLT 303 [facility] RBC 3.25 Low [facility] WBC 8.8 [facility] Urinalysis macro (dipstick) panel (U)on 12-10-2024 Bilirubin, UA Negative Negative - 4(7 0) +++ mg/dL [facility] Blood, UA Negative Negative - 50 Cedric/mcL [facility] Clarity, UA Clear [facility] Color, UA Yellow [facility] Glucose, UA Negative Negative - 1999(110) ++++ mg/dL [facility] Interpretation and review of laboratory results Normal [facility] Ketones, UA Negative Negative - 160(16) ++++ mg/dL [facility] Leukocytes, UA Negative Negative - 50 0+++ Ayana/mcL [facility] Nitrite, UA Negative Negative - Positive [facility] pH, UA 7 5 - 9 [facility] Protein, UA Negative Negative - 1999() ++++ mg/dL [facility] Spec Grav, UA 1.01 1 - 1.03 [facility] Urobilinogen, UA 0.2 0.2 - 12 mg/dL [facility] Urinalysis macro (dipstick) panel (U)on 11-12-2024 Bilirubin, UA Negative Negative - 4(7 0) +++ mg/dL [facility] Blood, UA Negative Negative - 50 Cedric/mcL [facility] Clarity, UA Clear [facility] Color, UA Yellow [facility] Glucose, UA Positive Negative - 1999(110) ++++ mg/dL [facility] Interpretation and review of laboratory results Abnormal [facility] Ketones, UA Negative Negative - 160(16) ++++ mg/dL [facility] Leukocytes, UA Negative Negative - 50 0+++ Ayana/mcL [facility] Nitrite, UA Negative Negative - Positive [facility] pH, UA 6 5 - 9 [facility] Protein, UA Negative Negative - 1999(20) ++++ mg/dL [facility] Spec Grav, UA 1.015 1 - 1.03 [facility] Urobilinogen, UA 1.0 0.2 - 12 mg/dL [facility] ALL THYROID STIM HORMONEon 0 11-07-2024 TSH Qn 2.68 m[IU]/L [facility] AFP, SERUM, OPEN SPINA BIFID Aon 10-17-2024 AFP MOM 0.82 . [facility] AFP VALUE 34.7 ng/mL . [facility] COMMENT: Comment . [facility] Comment on above: Alie Moon , Ph.D., [facility] Director References: Available Upon Request. Multiples Of Median Cutoffs For AFP Elevations Murphy 2.5 Black 2.8 IDD 2.0 Twins 4.5 Abbreviation Definitions IDD - Insulin Dep Diabetes OSBR - Open Spina Bifida Risk For further inquiries contact [employer] at [phone]. This test was developed and its performance characteristics determined by [employer]. It has not been cleared or approved by the Food and Drug Administration. Performed at: [facility] [place], [place] [id number] Import Customs Clearing Agent: Pily Meraz [facility], Phone: [phone] GEST. AGE ON COLLECTION DATE 17.3 . weeks [facility] GESTAT. AGE BASED ON LMP . [facility] Comment on above: Recalculations are n ot recommended when gestational dating by LMP and ultrasound are within 10 days. INSULIN DEP DIABETES No . [facility] INTERPRETATION Comment . [facility] Comment on above: Interpretation: Scre en Negative [...] Customer Services to discuss available options. The [employer] recommends amniocentesis be offered to women age 35 and older. [age] [facility] MULTIPLE GESTATION No . [facility] OS[place]IS[place] [address] . [facility] RACE . [facility] RESULTS Report . [facility] TEST RESULTS: Negative . [facility] WEIGHT 134 . lbs [facility] N N LMP [id number] 2 17 N 1 Y 134 N N N N N [facility] macro (dipstick) panel (U)on 10-15-2024 Bilirubin, UA Negative Negative - 4(7 0) +++ mg/dL [facility] Blood, UA Negative Negative - 50 Cedric/mcL [facility] Clarity, UA Clear [facility] Color, UA Yellow [facility] Glucose, UA Negative Negative - 1999(110) ++++ mg/dL [facility] Interpretation and review of laboratory results Normal [facility] Ketones, UA Negative Negative - 160(16) ++++ mg/dL [facility] Leukocytes, UA Negative Negative - 50 0+++ Ayana/mcL [facility] Nitrite, UA Negative Negative - Positive [facility] pH, UA 6 5 - 9 [facility] Protein, UA Negative Negative - 1999(20) ++++ mg/dL [facility] Spec Grav, UA 1.015 1 - 1.03 [facility] Urobilinogen, UA 0.2 0.2 - 12 mg/dL [facility] GLUCOSE 1 HOURon 10-02-2024 Glucose [Mass/Vol] 108 mg/dL NINF - 130 mg/dL [facility] ALL MISCELLANEOUS TESTon MISCELLANEOUS TEST COMMENT . [facility] Comment on above: Test Ordered: [id number] Parvovirus B19, Human, IgG/IgM Parvovirus B19, IgG 0.1 index Reference Range: 0.0-0.8 Negative <0.9 Equivocal 0.9 - 1.1 Positive >1.1 Parvovirus B19, IgM 0.1 index Reference Range: 0.0-0.8 Negative <0.9 Equivocal 0.9 - 1.1 Positive >1.1 Performed at: [facility] [address] [id number] Import Customs Clearing Agent: Darion Moon MD, Phone: [phone] Performed at: [facility] [address] [id number] Import [employer] Clearing Agent: Madi Maloney PhD, Phone: [phone] Parvovirus B19 (Human), IgG, IgM [facility] ALL MISCELLANEOUS TESTon MISCELLANEOUS TEST COMMENT . [facility] Comment on above: Test Ordered: [id number] Parvovirus B19, Human, IgG/IgM Parvovirus B19, IgG 0.1 index Reference Range: 0.0-0.8 Negative <0.9 Equivocal 0.9 - 1.1 Positive >1.1 Parvovirus B19, IgM 0.1 index Reference Range: 0.0-0.8 Negative <0.9 Equivocal 0.9 - 1.1 Positive >1.1 Performed at: - [facility] [id number] [employer] Clearing Agent: Darion Moon MD, Phone: [phone] Performed at: [facility] [address] [id number] [employer] Clearing Agent: Madi Maloney PhD, Phone: [phone] Parvovirus B19 (Human), IgG, IgM [facility] ALL CBC WITH AUTO DIFFon BASOPHILS ABSOLUTE AUTO 0 [facility] Basophils/100 WBC (Bld) 0.5 % 0.2 - 2.0 % [facility] Eosinophils/100 WBC (Bld) 0.5 % Low 0.9 - 7.0 % [facility] Erythrocyte distribution width (RBC) [Ratio] 12.3 % 11.0 - 15.0 % [facility] Hematocrit (Bld) [Volume fraction] 38.5 % 36.0 - 48.0 % [facility] IMMATURE GRANULOCYTES ABS AUTO 0.02 [facility] Immature granulocytes/100 WBC (Bld) 0.3 % 0.0 - 0.5 % [facility] Interpretation and review of laboratory results Abnormal [facility] LYMPHOCYTES ABSOLUTE AUTO 1.6 [facility] Lymphocytes/100 WBC (Bld) 21 % 20.5 - 60.0 % [facility] MCH (RBC) [Entitic mass] 33.5 pg 26.7 - 34.0 pg [facility] MCHC (RBC) [Mass/Vol] 35.6 g/dL High 29.9 - 35.2 g/dL [facility] MCV (RBC) [Entitic vol] 94.1 fL 81.0 - 99.0 fL [facility] MONOCYTES ABSOLUTE AUTO 0.4 [facility] Monocytes/100 WBC (Bld) 5.1 % 1.7 - 12.0 % [facility] NEUTROPHILS ABSOLUTE AUTO 5.6 [facility] Neutrophils/100 WBC (Bld) 72.6 % 43.0 - 75.0 % [facility] Platelet mean volume (Bld) [Entitic vol] 11.1 fL 9.5 - 13.5 fL [facility] TBH EO # 0 [facility] TBH PLT 211 [facility] TB RBC 4.09 Low [facility] TB WBC 7.8 [facility] CBC and differentialon 08-21 Hematocrit (Bld) [Volume fraction] 39 % 36 - 46 % [facility] Platelets (Bld) [#/Vol] 211 10*3/uL 150 - 399 10*3/uL [facility] WBC (Bld) [#/Vol] 7.8 10*3/mL 3.3 - 10.0 10*3/mL [facility] Drug Screen, Urineon 025 Amphetamine/Methamph etamine Negative [facility] Barbiturates Negative [facility] Benzodiazepines Negative [facility] Cocaine Metabolite Negative [facility] Methadone Negative [facility] Opiates Negative [facility] Oxycodone Negative [facility] Phencyclidine Negative [facility] Thc Marijuana, Urine Negative [facility] HBV surface Ag IA Qlon 08-21 Hepatitis B Surface Antigen Negative [facility] HCV Ab IA Qlon 08-21-2024 HCV Ab Ql (S) Non-Reactive [facility] HIV 1+2 Ab+HIV1 p24 Ag IA Ql on 08-21-2024 HIV 1&2 AB/AG Non-Reactive [facility] Hemoglobin A1con 08-21-2024 HbA1c (Bld) [Mass fraction] 5.6 % 4.0 - 6.0 % [facility] Laboratory - Hematology and Cell countson 08-21-2024 Hemoglobin (Bld) [Mass/Vol] 13.7 g/dL 12.0 - 16.0 g/dL [facility] No Panel Informationon 08-21 [facility] Rubella IGG immune statuson 08-21-2024 Rubella immune IgG immune [facility] T. pallidum IgG+IgM IA Ql (S )Ordered By: Nadira Salazar on 08-21-2024 Syphilis Non-Reactive [facility] TSHon 08-21-2024 Thyroid Stimulating (3Rd Generation) Hormone/ Tsh 7.721 [facility] Type and screenon 08-21-2024 Abo/Rh(D) Positive [facility] HCG ( test) Ql (U)o n 08-17-2024 Interpretation and review of laboratory results Abnormal [facility] Preg Test, Ur Positive Negative [facility] US OB TRANSVAGINALon 025 US OB TRANSVAGINAL [...] II, MD, PHD at 20-Aug-2024 10:22:40 AM [facility] [employer] Normal Not Available Comment on above: Order Comment: US OB TRANSVAGINAL No LMP recorded. Urinalysis macro (dipstick) panel (U)on 08-17-2024 Bilirubin, UA Negative Negative - 4(7 0) +++ mg/dL [facility] Blood, UA Negative Negative - 50 Cedric/mcL [facility] Clarity, UA Clear [facility] Color, UA Yellow [facility] Glucose, UA Negative Negative - 1999(110) ++++ mg/dL [facility] Interpretation and review of laboratory results Normal [facility] Ketones, UA Negative Negative - 160(16) ++++ mg/dL [facility] Leukocytes, UA Negative Negative - 50 0+++ Ayana/mcL [facility] Nitrite, UA Negative Negative - Positive [facility] pH, UA 7 5 - [facility] Protein, UA Negative Negative - 1999(20) ++++ mg/dL [facility] Spec Grav, UA 1.015 1 - 1.03 [facility] Urobilinogen, UA 0.2 0.2 - 12 mg/dL [facility] Ambulatory Visit Summaryon 0 - [...] 8:40 AM EDT With: Marta Rivas Where: [facility] [address] [place] [address], [place] [address]- Medications What How Much When Why Instructions [...] choosing us for your care. Normal [facility] Office/Clini c Noteon 07-09-2024 Family [...] anymore, managed with tylenol Social History: Occupation: [employer] Family life: home with and daughter Diet: no restrictions Caffeine: 1 cup coffee/day Exercise: active lifestyle Alcohol use: denies Drug use: denies Smoking status: denies Health Maintenance: Routine labs: thyroid labs 06/2024, declines further labs Pap (21-64yo): 04/2023 Specialists: Distresser: rosario Dentist: rosario OBGYN: Joanna Review of [...] Recheck TSH/T (more content not included)... Normal [facility] Comment on above: Result Comment: Elec [...] 8:00 AM EDT With: Marta Rivas Where: [facility] [address], [place] [address]- Medications What How Much When Why Instructions New amoxicillin-clavulan ate (Augmentin 875 mg-125 mg Tab) 1 Tablets By Mouth Every 12 hours Acute sinusitis Duration: 10 Days Pickup at [facility] Unchanged levothyroxine (Synthroid 100 mcg Tab) 1 Tablets By Mouth Every day Pharmacy Information [facility]: [address] [place], [place] [id number] [phone] Allergies No Known Allergies Problems Ongoing - [...] for choosing us for your care. Normal [facility] Family Medicine Office/Clini c Noteon 07-05-2024 [...] for 10 day(s), 20 tab(s), Refill(s) 0, [facility], 166, cm, 07/05/24 15:34:00 EDT, Height/Length [...] Follow-up With When Contact Information Ham Pineda, [facility] [address], [address] [phone] Additional Instructions: as scheduled with Marta Patient Education Sinus Infection, Adult, [id number] How to Perform a Sinus Rinse, Lxid-ke-Bags Problem List/Past Medical History Ongoing Acute sinusitis [...] vaccine, inactivated (more content not included)... Normal [facility] Comment on above: Result Comment: Elec tronically Signed By: Ham Pineda\.br\Date and Time Signed: 07/05/24 16:06 EDT CHEMISTRYOrdered By: SYSTEM SYSTEM on 07-04-2024 Free T4 [Mass/Vol] 0.82 ng/dL Normal 0.58 - 1.64 ng/dL [facility] TSH Qn 3.09 m[IU]/L Normal 0.34 - 5.60 mcIU/mL [facility] Free T4on 07-04-2024 Free T4 [Mass/Vol] 0.82 ng/dL Normal 0.58-1.64 [facility] Comment on above: Performed By: #### 2 [id number] #### [facility] [address] [place] [address] TSHon 07-04-2024 TSH Qn 3.09 m[IU]/L Normal 0.34-5.60 [facility] Comment on above: Performed By: #### 2 [id number] #### [facility] [address] [place] [address] DNA EXTRACTION AND HOLDon Method [employer]agents from [employer] Invalid Interpretation Code [facility] Comment on above: Order Comment: Relea se to patient->Automatic Nucleic Acid Concentration 273.2 ng/uL Invalid Interpretation Code [facility] Comment on above: Order Comment: Relea se to patient->Automatic Nucleic Acid Purity 1.90 Invalid Interpretation Code 1.70-2.10 [facility] Comment on above: Order Comment: Relea se to patient->Automatic Signature . Invalid Interpretation Code [facility] Comment on above: Order Comment: Relea se to patient->Automatic Storage and Special Instructions Invalid Interpretation Code [facility] Comment on above: Order Comment: Relea se to patient->Automatic Result Comment: The extracted DNA is stored in the [facility] at -70 degrees C and is being held for future testing. If there are any questions regarding this sample, please contact the [facility] at [phone]. Total DNA Yield 82.0 ug Invalid Interpretation Code [facility] Comment on above: Order Comment: Relea se to patient->Automatic Total Volume DNA 300 ul Invalid Interpretation Code [facility] Comment on above: Order Comment: Relea se to patient->Automatic IGP,APTIMA HPV,AGE GDLNon AGE GDLN ACOG TESTING Note . [facility] Healthcare Comment on above: TESTS RESULT FLAG UN ITS REF RANGE LAB Clinician Provided Cytology Information Source.............Cervix;Endocervix No. of containers..01 ThinPrep Vial Age Ronaldo ASTORGA Francheska... FLAG LEGEND: L-Low Normal,H-High Normal,LL-Alert Low,HH-Alert High <-Panic Low,>-Panic High,A-Abnormal,AA-Critical Abnormal Performed at: 01 [facility] [address] [place] [address] Sugey Torres MD, IGP, RFX APTIMA HPV ASCU Note . [facility] Comment on above: TESTS RESULT FLAG UN ITS REF RANGE LAB DIAGNOSIS: 02 NEGATIVE FOR INTRAEPITHELIAL LESION OR MALIGNANCY. Specimen adequacy: 02 Satisfactory for evaluation. Endocervical and/or squamous metaplastic cells (endocervical component) are present. Performed by: Jarred Rhoades, Helmet Hat Brim Cutter ([facility]) . 02 Note: Note 02 [...] <-Panic Low,>-Panic High,A-Abnormal,AA-Critical Abnormal Performed at: [address] [address] Sugey Torres MD, Performed at: = - [address] [id number] Import Customs Clearing Agent: Sugey Torres MD, Phone: [phone] Performed at: [address] [id number] [employer] Clearing Agent: Sugey Torres MD, Phone: [phone] BRUSH-SPATULA CERVIX ENDOCERVIX [facility] Coding Summary.on 09-14-2023 Coding Summary. JZXMUnho98HVu9tCg+PG hlYWQ+CX9PUBJiK08nfL RqsJ7fS6QARQuXJlyrXG KGYGhXGpPssjLeSI7cmX NjZXJu IC8+YU9wUJUzEkimfIPm e2L3iHD3B56vjg4hZTav aCN1HKMwWiIeimsal2uu hSg9IHjsDureDtUy MGRwwC47WDR9wH68Hn31 xLNcaELuf2drtZa5ZfGq AXObCRZ8zXcdCDlws4Hi GNFrC30jkVCxn7P5 IGNvbGxhcHNlOyBlbXB0 oF2vQRdtosaxs6umefod Qfg4qx57rFQgj4A3tRG9 I6TzpqQ9FDIhcWOu ZtzrfFGYyN8ubkszu1tz wjdhThImCKKnBFg8HHc8 NQVvdQasQbAwRZ87XTL3 FFViizKaF3FvXHIc jDwgTuM5o7B9Oz9IA7LM XbqpP6NINOLSOCmkfRN+ ZL16tk45A9JjVsucQtt6 GIKhSBY8dTU9fN2k THDsMGlrm7X5ePQ2B9Wl wvFxxh9mp8ysARPvDQgt R95klRHvx1U8CQEmkJP9 OBJtiYvlPbGkjN98 Oyc+OXPtyZufa1SrPrma z3xob0sfdXz7XzbqPEXq jjCvoGyeVRN5l2VyRp9f BBVgpWT0fFY8cP7a KsPaUwN7YGnxE839PxJm yFCtEjatJ97zY3LypGG+ YVLvOng2ORLfeIheIC8h B9UoBTCyaffvjOXw lDmtWF9eXJDrurnmBZFh iE1pWZVaA2o6IjGwCwN2 GZdwW1SxYMGbgkmtEh00 dR5aBpVmMaJ4WHqn K5JqmoY8DDKniBSaEHxo BJH0F76hd1H9XQDgPROm OBG5mAS7mD6fuYbaipqu bGVmdDsgdmVydGlj GBzjYUitK801GGUhmCjc PkNvZGluZyBEYXRlOiAg MDYvMjYvMjAyNDwvdGQ+ HUTeCZP0mXxcNDZi oFIgMIwqPp9aoRtaoSlz JH4vNXYxylwuQSJgfR7e PBYepNOfbSkuTL3qUZYm odsrr872GfYyBLX0 XYIjzJObS3CloF7lYaRn LLLmMQEzV9EuxQHxYAzn A387TMtyMpO7LYIetmDp Q9CpOCTbmChtSzZ0 c9L7Bv8Dd8JwknwdG3Vi aWJyKaYpNrnqMNh4P2Zn PjwvdHI+WE12FFVuOR07 ZRq3QPM6fTcyXLsp LVUuL4WxqI2qQgOnZASf ZGRkOyc+PHRhYmxlIHdp ZHRoPScxMDAlJyBzdHls PO5kJa7nYOAxXIBb tWzebKRhXkOcb0frUOMv FYuhJE6sfYivE7DbhTJ3 VYRql6b8Oc11J49fD0Og dXA+FGRaaMR1kSL1 cJ2iYmKqJgA5JCyeY183 GaJxzSKoHdjle5pkz0wn iXw3QkR1ZNBgnmTttCpl JWL7p2JsVi70F88k IHdpZHRoPSIxNSUiIHZh oWkble8ieW1uSr1+PGNv oZK4dDG2eS5dIvIrEcK2 TEtxE398JpKreWUz Ldmea1ifz3eblRq5TpQi TCLdxoJhwVdfJFL6v5Uo Mo67A4XncPjwz6GxQnp9 rd17lCSiu7G8tNI3 N9TwQKZutrjtyXWqvXjy CB0zJLPeoxpuLIVomF6l PXKsL2f9SsZcRqZ1YXho A4IasrU8ZHSbjJDo YUWawNHBlL6thewao1mt qeadXfPwRZPgUBx0CRb4 GUTtcHwmIrGsXYF6QzS5 MXB5wAYhvR4ftQag fzctxI1mGmt+JAN7qXOb qKUSJT7xNlsusLE+PHRk MBE7zAtyEYwrZEWzoP0m VGXhF8v8IcStJiY3 AWvhP2MjxwK0APSdpEAm SXDiiOXVqL0tistuz3lh ibreAaHgCCWuAXu6LIg4 LWFsaWduOiBsZWZ0 JbD4ALH6cJRhcH7sxOfc wmenrB8fCig+QmlydGgg KEG9NUo0F6LoJrl4ERLl wHwjXK5vnHVnHAqq It8njLhkoNvnWJ9fHFUh ydrgn039OzOca6yoEEFl nJTgRMopIYU7I45jz7R8 WNMlVNWpSVB3zYH4 bQ5hjQocoxgncTPgwJej zpTnlJnqCWxyKFmvJ365 ZEFigInnEqHjSPa8U9Ub Xpe3WANttEpsHL5r cGYiRVrfWs7ouTgmoVsz RG0bDXYvuvcts397YoNp g0hwMEDghOWaPGshRTQ0 Q59ng3X9LWGbBSXd ZVE0dTG3zN6knDplvbma bGVmdDsgdmVydGljYWwt VEunW933RLOunDjqFdRg eWk7G1PsGgf2MAUe hVbzLJ0ppKGcBJwgJi3d sNlzuHucYZ7kQAJfohyn r672PeOwh1urPDVzhGBm VEzqRNP4J77uj1E5 LRLmLWMgUVX2dJS5tK4x bGlnbjogbGVmdDsgdmVy vXkwOKbhYGjcD738XNSc cDsnPlBhdGllbnQg XInrEAk8M1LmBsjcuAJ+ EH84MGIqGK28iPKqkKEf x2cwnPj5KhHmKXZcSFY6 kXasODxln5EiYNVn S50poNQey8M5UGEraKul uPBqBiWtoLX5jB0yNXjf voouh4gbwxrxDuqmh1yz kc95wZ83O31dBEof ZHRoPSIzMCUiIHZhbGln bs7tqU8fEm8+PGNvbCB3 mZG0xO5tFKZjTmY7GUta U957QgNjgQGgRqxx x3xmq3jxzLm2AgM7YIZr fvSgmYzjAUR3a3ClOz12 X40pBOzqXRTdDNOkGCWg RZHsgKjxoc5ttC1u Ii8+OMYnoEF2cDR8iD0h SnMrIfH7JWxtT528EqHo bKIkUtbzJ37uC9GfpZW+ AHIhZzh2OHFmmWrv OT9diPBvZXpgEr1fRWS7 FiBpDpRdMYlmL7EmBIZr futxzkknsTT2FAHoYFOe fC68Sd2fxGlcZDCe vOERhW1jrnutc1unegcq GyQjBECrMRt4OEr3KWKd qCraQnQoEVE6LeL7DOM8 wQTmcR8bcWdpkgha tM4nA7AuUEEubcufYt90 jI3qCyRkFaT9BXsdSyg+ QlJPRUNLRUwsIFNJRVJS YYFEUB06WG43wGNd z6W6aBP7E9QxMKHrlkaw hfaitGF8OUPiGZMmzP92 fKSaGZhsTf4yy7G1a573 ZTItSSAibU10Qg8d eQdmOSTvsEFXiO1iudwq j7ssjjbsLlCoPKWfBGo2 FTt8DIXyfGhsLuYjYXH2 YhW5AXI3bZCpxQ5i iWxtojblcO0bMxv+MTAv LvtpHBe6GRgwpAF+PHRk FOQ4dYzsANglFZYnaG5e HWNgA4k6YmPcCiC1 QVdyI0XlDFDzcjpyHh95 lV4vCoGbQwQ2OTwvF4Vc fyS9CKLyxFDxJIlaRNN3 G92rw8H9WRRnAJSr KXR8jXX9tJ1vdXujuplf bGVmdDsgdmVydGljYWwt AUwdN243TEVsgCixVqT6 QFxvYEPpMA08PR22 wTLmp0U5kBD4M8PeDTMk jsgypolcoVP5ZEDrJVBv cZ37cZNmUAsqAf8kn7I0 u692OYQkQBNkaM39 Sj1siVtoHUFjjHSAoE0b kmmzo9zyrphwNvXbGLTd OEx0QOx8TGQcsTihXnRz NPC4CqH6IJP5eIGe qZ9miEdrypwrkH6lKip+ IxEtKZcbAY98MM94nVEv p0V7vZG1Q8XkFHOnbypp ftblaWJ6CFKcWTGy vD22cKGsWDppLr5nz5G3 k495JBGkLPQhqS42Mj6v vEgoREVenBJVgN7bsoin x3gidyeyLyDeNWWt IFp5EDt0KTKlcDqdExDc AQI6WbQ1XCC8oHKdiC9e rHxmmunrzC2vDix+T3V0 iLB6gPFkgPfvtWB+ RF53lp23J8DcWpswUnx8 PZZvVVE3wOS1gD1cWNDs FAffe0E9zLM4M6VmysZv hg6jv0doDEXvJGqc O95meRFbv8Z0TOPhaME2 KCIzaPfwEpVykC86Eng+ PPKojOqjl1VdPulcy8hp o5xrvMw8WyVkZMWq erDpfLmoMGK2c5OdPz16 O95wDOpiEFVnHFBuHMQb KGMhuJfqui9kqA9aVq0+ FETpkAY4oCR5bG5h JeLiUwH5MVxtY117PjRy hNXcOwsda4dpe4vzcDu4 IjIwJSIgdmFsaWduPSJ0 h4LkNg85J1TpyNgt g2FoZzt2qf64fJEeg8J5 qTQ9U1SyHPMklxfhhOJj lSmtTH1dSEJnyerwRHPm dK2vHCQhK0h7HfYw CzC0KNyxZ7FmxdI8NVZq pQOvXMRojPJBuY5dhrzd r5vuqjlhZrTlAZOcTCf2 VSt3JOIuvHqmShQg JXE1PgV3TFT2zRTubI7w rAmkiuzuzJ9dKku+UGh5 w9oesZOiBV6ykHN1FP69 SY53xLHcp4H5fXF9 F1DtWZDpymyirxzejKK6 LJHoFTLflF18Th3vpTlg Fx2eEOUbASU9QAFktYEg Y9JezX1bPmVsJKJb LLUfU6WuoLWiIUccC592 CQgwEqD5QZNwjwIcD8Vf ZPQkcYqnKkR2b1N4Nd4R AO29DN42ZQ23cNZe z1Y2tPG5H3GeXKJljcne ynndtYW1OHNnONZklD35 Re2zwVofWh0vKYBuPZJ7 QWVthSAcZ2JlfG3t YnYsCPLmEAVcF9LzkWPl QNvgZ005LHzbWlK0QYUy byUlF7IxDKVowJrwOjL8 p6K7Ou7CKb99XK16 OR98yGRyd6E8fTT7V7Ij QXXcujqwsktquGW2VDWv VIBwpV50Dx9wiPcnWn6h CKSlMDO3RRHrhXMw P6ZttL4nVgCuRPZiXRPz T2EvbZYsNGpyY751TYjl FzX9YUJqdoOrW5JtNZKf jXasYlG9n7J2Fw8V BFjilxg3S9KtFeuraYY+ HI41HSGbHC69hSKznSXp p5utuSr0RdUlADSoNKJ5 sUkjBIbdw6WpVNXu C08haSBjz0L9K (more content not included)... Normal [facility] CHEMISTRYOrdered By: SYSTEM SYSTEM on 09-07-2023 Free T4 [Mass/Vol] 0.92 ng/dL Normal 0.58 - 1.64 ng/dL Remisol Chem TSH Qn 3.37 m[IU]/L Normal 0.34 - 5.60 mcIU/mL Remisol Chem Consent for Treatmenton 08-19 Consent for Treatment [id number] #1.00TIFF Normal [facility] Free T4on 09-07-2023 Free T4 [Mass/Vol] 0.92 ng/dL Normal 0.58-1.64 [facility] Comment on above: Performed By: #### 2 [id number] #### [facility] [address] [place] [address] TSHon 09-07-2023 TSH Qn 3.37 m[IU]/L Normal 0.34-5.60 [facility] Comment on above: Performed By: #### 2 [id number] #### [facility] [address] [place] [address] Ambulatory Visit Summaryon 0 08-08-2023 Ambulatory Visit Summary YANA CHURCH :2000 Visit Date:08/08/2023 Ambulatory Visit Instructions Your Diagnosis Hypothyroidism Recurrent UTI (urinary tract infection) Your Care Team Attending Physician - Ya Wang Primary Care Physician - aY Wang This Is Your Medications List Contact [...] for choosing us for your care. Normal [facility] Family Medicine Office/Clini c Noteon 08-08-2023 Family [...] diarrhea, hx of hemorrhoids- no issues. saw Daniel in Nov 30 2022 - Review of [...] hemorrhoids) Resolved, no additional complaints. saw [facility] for screening colonoscopy/diagnost ic colonoscopy due to [...] with voice recognition artificial intelligence software, specifically [employer], [employer] and or [employer]. Substitutions may have occurred due to the [...] Alcohol Curren (more content not included)... Normal [facility] Comment on above: Result Comment: Elec [...] Follow these instructions at home: ? Take bpfv-xer-lzxgvkd and prescription medicines only as told by [...] provider. Document Revised: 03/09/2022 Document Reviewed: 03/09/2022 Night Out Patient Education ? 2022 [employer]. Gastroenterology Hemorrhoids Hemorrhoids are swollen veins in and around the rectum or anus. There are two types of hemorrhoids: ? Internal hemorrhoids. These occur in the veins that are just inside the rectum. They may poke through to the outside and become irritated and painful. ? External hemorrhoids. These occur in the veins that are (more content not included)... Normal [facility] PAP [id number] 05-20-2023 C. trachomatis rRNA FRANSISCO+probe Ql (Cvx) Negative Invalid Interpretation Code Negative [facility] Comment on above: Performed By: #### 1 [id number] ####[facility] [address] [place] [address] Cytology report Cyto stain Doc (Cvx/Vag) Note Invalid Interpretation Code [facility] Comment on above: Result Comment: TEST S RESULT FLAG UNITS REF RANGE LAB Clinician Provided Cytology Information Source.............Cervix No. of containers..01 ThinPrep Vial DIAGNOSIS: 01 NEGATIVE FOR INTRAEPITHELIAL LESION OR MALIGNANCY. Specimen adequacy: 01 Satisfactory for evaluation. Endocervical and/or squamous metaplastic cells (endocervical component) are present. Performed by: 01 Erum Mckenzie, Helmet Hat Brim Cutter ([facility]) . 01 Note: Note 01 [...] Low,>-Panic High,A-Abnormal,AA-Critical Abnormal Performed at: [address] [facility] [place] [address] Sugey Torres MD, Performed By: #### 1 [id number] ####[address] [address] HPV 16+18+31+33+35+39+45 +51+52+56+58+59+66+6 8 DNA Probe+sig amp Ql (Cvx) Negative Invalid Interpretation Code Negative [facility] Comment on above: Result Comment: This nucleic acid amplification test detects fourteen high-risk HPV types (16,18,31,33,35,39,45,51,52,56,58,59,66,68) without differentiation. Performed By: #### 1 [id number] ####[address] [address] N. gonorrhoeae rRNA FRANSISCO+probe Ql (Cvx) Negative Invalid Interpretation Code Negative [facility] Comment on above: Performed By: #### 1 [id number] ####[address] [address] T. vaginalis rRNA FRANSISCO+probe Ql (Unsp spec) Negative Invalid Interpretation Code Negative [facility] Comment on above: Result Comment: Perf ormed at: [facility] [id number] MD Brian Mayes Performed at: =[facility] [address] [id number] MD Brian Mayes Performed By: #### 1 [id number] ####[address] [address] Family Medicine Office/Clini c Noteon 05-16-2023 Family [...] was performed without the assistance of medical office assistant instructor as witness Pelvic Exam: Vulva: normal appearance, [...] up every 3-5 years based on results PROCUREMENT REPRESENTATIVE referral if needed for further testing or [...] 6 months (more content not included)... Normal [facility] Comment on above: Result Comment: Elec tronically Signed By: Ya Wang.irvin\Date and Time Signed: 05/16/23 15:38 EST PAP [id number] 05-16-2023 Gynecological Body Site CERVIX Normal [facility] Comment on above: Performed By: #### 1 [id number] ####[facility] [address] [place] [address] Patient Educationon 05-16-19 Patient Education Obstetrics and [...] including vitamins, herbs, eye drops, creams, and yzpd-lvv-ngaolko medicines. ? Any bleeding problems you have. [...] provider. Document Revised: 06/05/2021 Document Reviewed: 06/05/2021 [employer] Touch Patient Education ? 2022 [employer] Oncology Cancer Screening for Women A [...] How i (more content not included)... Normal [facility] Consent for Treatmenton Consent for Treatment [id number] #1.00TIFF Normal [facility] UA With Cult Reflexon 2023 Bilirubin Ql (U) Negative Normal Negative [facility] Comment on above: Performed By: #### 1 [id number] ####[facility] [address] [place] [address] Clarity (U) CLEAR Normal Clear [facility] Comment on above: Performed By: #### 1 [id number] ####[facility] [address] [place] [address] Color (U) YELLOW Normal Yellow [facility] Comment on above: Performed By: #### 1 [id number] ####[facility] [address] [place] [address] Epithelial cells.squamous LM.HPF (Urine sed) [#/Area] 0-2 Normal 0-2 [facility] Comment on above: Performed By: #### 1 [id number] ####[facility] [address] [place] [address] Glucose Test strip (U) [Mass/Vol] Negative Normal Negative [facility] Comment on above: Performed By: #### 1 [id number] ####[facility] [address] [place] [address] Hemoglobin Ql (U) Negative Normal Negative [facility] Comment on above: Performed By: #### 1 [id number] ####[address] [address] Ketones (U) [Mass/Vol] Negative Normal Negative [facility] Comment on above: Performed By: #### 1 [id number] ####[address] [address] [employer].plasma/Lithi um.RBC (Bld) [Mass ratio] 0-3 Normal 0-3 [facility] Comment on above: Performed By: #### 1 [id number] ####[address] [address] Nitrite Ql (U) Negative Normal Negative [facility] Comment on above: Performed By: #### 1 [id number] ####[address] [address] pH (U) 6.0 [pH] Invalid Interpretation Code 5.0-9.0 [facility] Comment on above: Performed By: #### 1 [id number] ####[address] [address] Protein (U) [Mass/Vol] Negative Normal Negative [facility] Comment on above: Performed By: #### 1 [id number] ####[address] [address] Specific gravity (U) [Rel density] >=1.030 Invalid Interpretation Code 1.005-1.030 [facility] Comment on above: Performed By: #### 1 [id number] ####[address] [address] Type of Urine collection method Clean Catch Normal [facility] Comment on above: Performed By: #### 1 [id number] ####[address] [address] Urobilinogen Qn (U) 0.2 {Mehdi'U}/dL Normal 0.0-1.0 [facility] Comment on above: Performed By: #### 1 [id number] ####[address] [place] [address] WBC Auto Ql (U) Negative Normal Negative [facility] [place] Comment on above: Performed By: #### 1 [id number] ####[facility] [address] [place] [address] WBC LM.HPF (Urine sed) [#/Area] 0-5 Normal 0-5 [facility] Comment on above: Performed By: #### 1 [id number] ####[facility] [address] [place] [address] URINALYSISOrdered By: Alphonso Wang on 03-24-2023 Bilirubin [...] AM) Normal Negative [facility] UA Auto SS [employer].plasma/Lithi um.RBC (Bld) [Mass ratio] 0-3 /HPF Normal [...] Auto SS UA Spec Desc Clean Catch (1/4/24 11:15 AM) Normal [facility] UA Auto SS Urobilinogen Qn (U) 0.7232518 {Mehdi'U}/dL Normal 0.0 - 1.0 EU/dL [facility] UA Auto SS WBC Auto Ql (U) Negative (03/24/23 11:15 AM) Normal Negative [facility] UA Auto SS WBC LM.HPF (Urine sed) [#/Area] 0-5 /HPF Normal 0-5/HPF [facility] UA Auto SS T3 Freeon 03-23-2023 Free T3 [Mass/Vol] 2.9 pg/mL Invalid Interpretation Code 2.0-4.4 [facility] Comment on above: Result Comment: Perf ormed at: [facility] [address] [id number] PhD Haider Barraza Performed By: #### 2 [id number], [id number], [id number] ####[facility] [address] [place] [address] US Retroperitoneal Completeo n 03-23-2023 US Retroperitoneal [...] MD Transcribed by: RAZIA Technologist: HW Normal [facility] CHEMISTRYOrdered By: SYSTEM SYSTEM on 03-22-2023 Free T4 [Mass/Vol] 1.10 ng/dL Normal 0.58 - 1.64 ng/dL Remisol Chem TSH Qn 0.90 m[IU]/L Normal 0.34 - 5.60 mcIU/mL Remisol Chem Consent for Treatmenton Consent for Treatment [id number] #1.00TIFF Normal [facility] Free T4on 03-22-2023 Free T4 [Mass/Vol] 1.10 ng/dL Normal 0.58-1.64 [facility] Comment on above: Performed By: #### 2 [id number], [id number], [id number] ####[facility] [address] [place] [address] TSHon 03-22-2023 TSH Qn 0.90 m[IU]/L Normal 0.34-5.60 [facility] Comment on above: Performed By: #### 2 [id number], [id number], [id number] ####[facility] [address] [place] [address] C Urineon 03-11-2023 Bacteria identified Cx Nom [...] Locations R1: This test was performed at: [facility], [address] [place] [address], [address], [facility] Comment on above: Performed By: #### 2 [id number] ####[facility] [address] [address] Family Medicine Office/Clini c Noteon 03-11-2023 Family [...] due to her gallbladder. She saw a dietary aid in 11/2022. She is able to schedule [...] shows: Negat (more content not included)... Normal [facility] Comment on above: Result Comment: Elec [...] Urnls Dip Stick Auto w/o Microscopy POC [address] Your Care Team Attending Physician - Ya Wang Primary Care Physician - Ya Wang This Is Your Medications List [facility] Prescription (Glucose Test Strips) [facility] Prescription (Lancets) cephalexin (Keflex 500 mg Cap) [...] Follow-Up Appointments Tuesday 10:00 AM EDT With: Norberto BARTLETT, Ya Alexandre Where: [facility] Primary Care Normal Recurrent UTI (urinary tract infection), pp_set_radiology_ subspecialty, [facility]\.br\ Medications\.br\ What How Much When Why Instructions\.br\ New cephalexin (Keflex 500 mg Cap) 1 Capsules By Mouth 4 times a day Feeling of incomplete bladder emptying Recurrent UTI (urinary tract infection) Duration: 7 Days Pickup at [facility]\.br\ New phenazopyridine (Pyridium 200 mg Tab) 1 Tablets By Mouth 3 times a day Feeling of incomplete bladder emptying Recurrent UTI (urinary tract infection) Duration: 3 Days Pickup at [facility]\.br\ Unchanged levothyroxine (Synthroid 112 mcg Tab) [...] instructions Prior to colonoscopy. \.br\ Pharmacy Information\.br\ [facility]: [address], [place] [id number] [phone]\.br\ Test Results\.br\ Urnls Dip Stick Auto w/o Microscopy POC 49960 (03/09/2023)\.br\ Bilirubin Urine Dipstick - Negative\.br\ Blood Urine Dipstick - Trace-intact\.br\ Glucose Urine Dipstick - Negative\.br\ Ketones Urine Dipstick - Negative\.br\ Leukocytes Urine Dipstick - Trace\.br\ Nitrite Urine Dipstick - Negative\.br\ Protein Urine Dipstick - Negative\.br\ Specific [place] Urine Dipstick - 1.020\.br\ Urine Appearance Urine [...] including vitamins, herbs, eye drops, creams, and klwb-mrf-blowjuv medicines.\.br\ ? \.br\ Whether you are or [...] nerves are communicating with your muscles.\.br\ What [facility] Patient Educationon 03-09-20 Patient Education Endocrinology [...] Follow these instructions at home: ? Take kpkg-ogr-baaxifd and prescription medicines only as told by [...] provider. Document Revised: 03/09/2022 Document Reviewed: 03/09/2022 Night Out Patient Education ? 2022 [employer]. Obstetrics and Gynecology Urinary Tract Infection, [...] bl (more content not included)... [facility] Physician Referralon 023 Physician Referral [id number] #1.00TIFF [facility] Provider Letteron 03-02-2023 Provider Letter March 02, 2023 YANA CHURCH [address] [place] [id number] : [address] Clay Waters is know on your insurance & we are able to schedule your EGD & Colonoscopy. Please call us at [phone] at your earlieast convenience to schedule your procedure. Thank you for your prompt attention to this matter. Sincerely, [facility] Reminderson 03-02-2023 Reminders - From: Erum Gold To: [facility] - Reminders/Recalls; Sent: 11/30/2022 12:34:03 EDT Show up: 11/30/2022 12:34:00 EDT Subject: Ambulatory Reminder [employer] Reminder/Recall Call pt and scheduled EGD and Colonoscopy with Dr. Williamson once [employer] is approved. - From: Rusty Alfred ([facility] - Reminders/Recalls) To: Yue Perez; Sent: 12/28/2022 [...] patient to call office to schedule Normal [facility] C Urineon 02-23-2023 Bacteria identified Cx Nom [...] Locations R1: This test was performed at: [facility], [address] [place] [address], [facility] , , [facility] Comment on above: Performed By: #### 2 [id number] ####[facility] [address] [place] [address] Family Medicine Office/Clini c Noteon 02-21-2023 Family [...] color was orange in appearance due to mjlh-inc-pswqlqv meds she was taking, normal urobilinogen pH [...] day(s), # 10 cap(s), Refills(s) 0, Pharmacy: [facility], 166, cm, 02/21/23 13:06:00 EST, Height/Length Dosing, 58.6, kg, 02/21/23 13:06:00 EST, Weight Dosing phenazopyridine, 200 mg = 1 tab(s), Oral, TID, X 3 day(s), # 9 tab(s), Refills(s) 0, Pharmacy: [facility], 166, cm, 02/21/23 13:06:00 EST, Height/Length Dosing, 58.6, kg, 02/21/23 13:06:00 EST, Weight Dosing Urine Culture Urnls Dip Stick Auto w/o Microscopy POC 44011 2. Acute cystitis (N30.00: Acute cystitis without hematuria) #1 3. Constipation in female (K59.00: Constipation, unspecified) improving. occasional Colace OTC and Miralax 4. Hemorrhoids (K64.9: Unspecified hemorrhoids) improving, stable 5. Hypothyroidism (E03.9: Hypothyroidism, unspecified) Chronic Stable with 112 mcg daily of Synthroid _ control Weight is stable Asymptomatic- noteable tachycardia today Du (more content not included)... Normal [facility] Comment on above: Result Comment: Elec troerlinally Signed By: Ya Wang\.irvin\Date and Time Signed: [...] these instructions at home: Medicines ? Take jteo-jnn-npfuxct and prescription medicines only as told by [...] provider. Document Revised: 10/17/2020 Document Reviewed: 10/17/2020 Night Out Patient Education ? 2022 [employer]. [facility] Ambulatory Visit Summaryon 0 11-30-2022 Ambulatory Visit Summary YANA CHURCH :2000 Visit Date:11/30/2022 Ambulatory Visit Instructions Your Diagnosis Rectal itching Rectal pressure Weight loss Family history of colon cancer Your Care Team Attending Physician - Daniel Gray CNP Primary Care Physician - Ya [...] EST With: Norberto BARTLETT, Ya Alexandre Where: [facility] Primary Care Normal [facility] Gastroenterology Office/Clin ic Noteon [...] Refill(s) 0, Prior to colonoscopy., [id number], 166, cm, 11/30/22 12:12:00 EDT, Height/Length Dosing, 58.8, kg, 11/30/22 12:12:00 EDT, Weight Dosing Follow-up With When Contact Information Daniel Gray CNP Within 2 weeks Additional Instructions: Following EGD/Colonoscopy. Patient Education High-Fiber Eating Plan Problem List/Past Medical History Ongoing BMI 21.0-21.9, adult Constipation in female Establishing care with new doctor, encounter for Family history of colon cancer First trimester Headache Hemorrhoids Hordeolum of left eye Hx gestational diabetes Hx of allergic rhinitis Hypoglycemia Hypothyroidism Left (more content not included)... Normal [facility] Comment on above: Result Comment: Elec tronically Signed By: Daniel Gray CNP\.br\Date and Time Signed: 11/30/22 12:32 [...] Bulgur wheat. Millet. Quinoa. Bran muffins. Popcorn. Joppa wafer crackers. Meats and other proteins [place] beans, kidney beans, and díaz beans. Soybeans. [...] Cream cheese. Sour cream. Fats and oils [place]. Beverages Soft drinks. Other foods Cakes and [...] Revised: (more content not included)... [facility] Pre-Certification Formon Pre-Certification Form [id number] 1#1.00CD:127 [facility] Family Medicine Office/Clini c Noteon 11-11-2022 [...] visit we encourage proper diet and exercise puvc-nru-llhgmfm MiraLAX or Colace with Preparation H oqas-zgq-hsmzgcr, bleeding has stopped, blood noted on toilet [...] Rectal exam was performed, I did offer automobile drivers but patient declined, external anus is normal [...] length of time on toilet, sitz bath's, maba-jfw-tfrvqzk medications and suppositories and creams Hydrocortisone lidocaine with applicator gel ordered today to use twice daily Referral for GI referral placed today Ordered: hydrocortisone-lidoc letty topical, 1 carmen, Rectal, BID, 60 EA, Refill(s) 1, [facility] #37, 166, cm, 11/11/22 9:28:00 EDT, Height/Length Dosing, 59.4, kg, 11/11/22 9:28:00 EDT, Weight Dosing [facility] [place] Referral 2. Hypothyroidism (E03.9: Hypothyroidism, [...] azelastine ophthalmic, (more content not included)... Normal [facility] Comment on above: Result Comment: Elec [...] serving. ? Talk with a diet and public health nutritionist (dietitian) if you have questions about specific [...] Bulgur wheat. Millet. Quinoa. Bran muffins. Popcorn. [place] wafer crackers. Meats and other proteins [place], kidney, and díaz beans. Soybeans. Split peas. [...] Cream cheese. Sour cream. Fats and oils [place]. Beverages Soft drinks. Other foods Cakes and [...] 03/07/2006 Document Revised: 01/09/2018 Document Reviewed: 01/09/2018 Night Out Patient Education ? 2019 [employer]. Gastroenterology H (more content not included)... Normal [facility] Ambulatory Visit Summaryon 0 10-08-2022 Ambulatory [...] f/u for hypothyroid, weight loss Where: [address], [address] [address]- Business (1) You Need to Complete the Following Anti-thyroid Abys, Blood, Routine collect, 10/08/22, Order for future visit, Lab Collect, Weight loss Invalid Interpretation Code Hypothyroidism [facility] Auto Diffon 10-08-2022 Basophils/100 WBC (Bld) 1.1 % Normal 0.0-2.0 [facility] Comment on above: Order Comment: Order Added by Discern Expert. Performed By: #### [id number] ####[facility] [id number] [place] [address] Basophils/Leukocytes Auto (Bld) [Pure # fraction] 0.1 E9/L Normal 0.0-0.2 [facility] Comment on above: Order Comment: Order Added by Discern Expert. Performed By: #### 2 [id number] ####[facility] [address] [place] [address] Eosinophils/100 WBC (Bld) 1.2 % Normal 0.0-8.0 [facility] Comment on above: Order Comment: Order Added by Discern Expert. Performed By: #### 2 980289, 21529166, 99692964, 2896520, 0252923 ####[facility] [address] [place] [address] Eosinophils/Leukocyt es Auto (Bld) [Pure # fraction] 0.1 E9/L Normal 0.0-0.5 [facility] Comment on above: Order Comment: Order Added by Discern Expert. Performed By: #### 2 200911, 12959592, 10923576, 1298829, 9032588 ####[address] [place] [address] Lymphocytes/100 WBC (Bld) 41.0 % Normal 14.0-50.0 [facility] Comment on above: Order Comment: Order Added by Discern Expert. Performed By: #### 2 525558, 61030740, 52240604, 2595928, 4549126 ####[address] [place] [address] Lymphocytes/Leukocyt es Auto (Bld) [Pure # fraction] 2.3 E9/L Normal 1.0-4.0 [facility] Comment on above: Order Comment: Order Added by Discern Expert. Performed By: #### 2 573749, 79081441, 39613906, 7213366, 1132042 ####[address] [address] Monocytes/100 WBC (Bld) 5.8 % Normal 4.0-14.0 [facility] Comment on above: Order Comment: Order Added by Discern Expert. Performed By: #### 2 966923, 92453549, 37439515, 9690723, 1676642 ####[address] [address] Monocytes/Leukocytes Auto (Bld) [Pure # fraction] 0.3 E9/L Normal 0.2-1.0 [facility] Comment on above: Order Comment: Order Added by Discern Expert. Performed By: #### 2 091246, 20303608, 35296206, 7163931, 3724267 ####[address] [address] Neutrophils/100 WBC (Bld) 50.9 % Normal 36.0-75.0 [facility] Comment on above: Order Comment: Order Added by Discern Expert. Performed By: #### 2 551103, 32207289, 33907816, 1678749, 6988145 ####[address] [place] [address] Neutrophils/Leukocyt es Auto (Bld) [Pure # fraction] 2.8 E9/L Normal 2.0-7.5 [facility] Comment on above: Order Comment: Order Added by Discern Expert. Performed By: #### 2 688657, 81829791, 74874297, 9777776, 1896271 ####[facility] [address] [place] [address] CBC w/ Auto Diffon 3 Erythrocyte distribution width (RBC) [Ratio] 12.6 % Normal 10.9-14.2 [facility] Comment on above: Performed By: #### 2 536273, 72185832, 74029702, 7953245, 0445123 ####[address] [place] [address] Hematocrit (Bld) [Volume fraction] 40.4 % Normal 34.0-46.0 [facility] Comment on above: Performed By: #### 2 709993, 62939789, 78255606, 1893881, 6401391 ####[facility] [address] [place] [address] Hemoglobin (Bld) [Mass/Vol] 14.1 g/dL Normal 12.0-16.0 [facility] Comment on above: Performed By: #### 2 709446, 15005474, 91556952, 6964767, 0613637 ####[address] [place] [address] MCH (RBC) [Entitic mass] 32.1 pg Normal 27.0-34.0 [facility] Comment on above: Performed By: #### 2 877294, 09408490, 68704201, 0569388, 6758190 ####[facility] [address] [place] [address] MCHC (RBC) [Mass/Vol] 34.8 g/dL Normal 31.4-36.0 [facility] Comment on above: Performed By: #### 2 381915, 08985731, 63899295, 5025879, 4075854 ####[facility] [address] [place] [address] MCV (RBC) [Entitic vol] 92.1 fL Normal 80.0-100.0 [facility] Comment on above: Performed By: #### 2 863011, 83644861, 94643896, 8903805, 0641171 ####[address] [place] [address] Platelet mean volume (Bld) [Entitic vol] 9.1 fL Normal 6.4-10.8 [facility] Comment on above: Performed By: #### 2 001986, 24237427, 18354706, 9452287, 5642673 ####[address] [address] Platelets (Bld) [#/Vol] 238.0 E9/L Normal 150.0-500.0 [facility] Comment on above: Performed By: #### 2 096459, 25218310, 27273528, 6952897, 3516685 ####[address] [address] RBC (Bld) [#/Vol] 4.4 E12/L Normal 4.3-5.9 [facility] Comment on above: Performed By: #### 2 592243, 33808017, 09235439, 8649335, 8583886 ####[address] [address] WBC corrected for nucl RBC Auto (Bld) [#/Vol] 5.6 E9/L Normal 4.0-11.0 [facility] Comment on above: Performed By: #### 2 038778, 33673673, 61554561, 1005413, 8684162 ####[address] [address] CMPon 10-08-2022 Albumin [Mass/Vol] 4.7 g/dL Normal 3.3-5.0 [facility] Comment on above: Performed By: #### 2 055877, 82828906, 04981407, 5684631, 6525774 ####[facility] [address] [place] [address] Albumin/Globulin (S) [Mass conc ratio] 1.5 Normal 1.1-2.2 [facility] Comment on above: Performed By: #### 2 314913, 63073269, 75675419, 3384800, 2983320 ####[facility] [address] [place] [address] ALP [Catalytic activity/Vol] 42 Int._Unit/L Normal 21-98 [facility] Comment on above: Performed By: #### 2 755865, 66763437, 28978964, 2650551, 2619958 ####[facility] [address] [place] [address] ALT No additional P-5'-P [Catalytic activity/Vol] 15 Int._Unit/L Normal 6-46 [facility] Comment on above: Performed By: #### 2 169260, 61618146, 83320188, 5355356, 6068087 ####[facility] [address] [place] [address] Anion gap [Moles/Vol] 13 mmol/L Normal 6-16 [facility] Comment on above: Performed By: #### 2 407008, 45769804, 49285893, 4185768, 0365833 ####[facility] [address] [place] [address] AST [Catalytic activity/Vol] 22 Int._Unit/L Normal 5-43 [facility] Comment on above: Performed By: #### 2 006650, 10701093, 02864527, 4458778, 3516406 ####[facility] [address] [place] [address] Bilirubin [Mass/Vol] 0.5 mg/dL Normal 0.0-1.1 [facility] Comment on above: Performed By: #### 2 058465, 30398737, 36581078, 8104353, 1977040 ####[facility] [place] [address] Calcium [Mass/Vol] 9.4 mg/dL Normal 8.9-11.1 [facility] Comment on above: Performed By: #### 2 446011, 47103712, 35084346, 5442700, 1295435 ####[facility] [address] [place] [address] Chloride [Moles/Vol] 107 mmol/L Normal 101-111 [facility] Comment on above: Performed By: #### 2 621752, 90967328, 11000661, 3498347, 9236377 ####[facility] [address] [place] [address] CO2 [Moles/Vol] 24 mmol/L Normal 21-31 [facility] [place] [facility] Comment on above: Performed By: #### 2 223605, 79106372, 92032249, 3019924, 6224657 ####[facility] [address] [place] [address] Creatinine [Mass/Vol] 0.7 mg/dL Normal 0.5-1.3 [facility] Comment on above: Performed By: #### 2 155452, 28700524, 44382286, 9915819, 4220851 ####[facility] [address] [place] [address] Globulin (S) [Mass/Vol] 3.2 g/dL Normal 1.4-4.0 [facility] Comment on above: Performed By: #### 2 095918, 96702332, 95720495, 0924061, 6502477 ####[facility] [address] [place] [address] Glucose [Mass/Vol] 105 mg/dL Normal 55-199 [facility] Comment on above: Result Comment: If t his glucose result represents a fasting glucose, interpretation should refer to the following reference range: 55-99 mg/dL Performed By: #### 2 385887, 79651882, 58066649, 0885246, 7673896 ####[facility] [address] [place] [address] Potassium [Moles/Vol] 3.9 mmol/L Normal 3.5-5.3 [facility] Comment on above: Performed By: #### 2 795640, 68646053, 54279219, 2752573, 5358472 ####[facility] [address] [place] [address] Protein [Mass/Vol] 7.9 g/dL High 6.0-7.8 [facility] Comment on above: Performed By: #### 2 510036, 11757748, 19236575, 0327684, 5658007 ####[facility] [address] [place] [address] Sodium [Moles/Vol] 140 mmol/L Normal 135-145 [facility] Comment on above: Performed By: #### 2 317140, 04377116, 66857027, 5866618, 9339251 ####[facility] [address] [place] [address] Urea nitrogen [Mass/Vol] 17 mg/dL Normal 5-21 [facility] Comment on above: Performed By: #### 2 130766, 22969382, 04028163, 8004043, 1051284 ####[facility] [address] [place] [address] Urea nitrogen/Creatinine [Mass ratio] 24 No Units High 10-20 [facility] Comment on above: Performed By: #### 2 487671, 46193190, 83796720, 3028301, 8963830 ####[facility] [address] [place] [address] Consent for Treatmenton 09-19 Consent for Treatment [id number] #1.00CD:127 Normal [facility] Medicine Office/Clini c Noteon 10-08-2022 Family Medicine [...] Dr Marshall scheduled for nov 2022 Specialists: Distresser: Bird Álvarez in [place]- contacts most of the time, Dentist: ROSARIO - no issues- Dr Nila MARSHALL- [facility] OBGYJessica KASPER Review of Systems PHQ Score Initial Depression [...] Pap testing and gynecologic screenings per 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 Discussed self breast exams and other health [...] and exercise increasing. Patient encouraged to use qzxf-vut-hcqnqsv MiraLAX or Colace, encouraged Preparation H jfqb-ozr-njziuxy topical treatments if needed. \ Follow-up only if needed. Patient only having minimal complaints 3. Constipation in female (K59.00: Constipation, unspecified) see #3 4. BMI 20.0-20.9, ad (more content not included)... Normal [facility] Comment on above: Result Comment: Elec [...] instructions at home: General instructions ? Take izry-doe-macqcqc and prescription medicines only as told by your health care provider. ? Monitor your blood glucose as told by your health care provider. ? If you drink alcohol: ? Limit how much you have to: ? 0?1 (more content not included)... Normal [facility] TSH With T4fr Reflexon 10-08 TSH Qn 0.58 m[IU]/L Normal 0.34-5.60 [facility] Comment on above: Performed By: #### 2 113398, 44977592, 15801975, 6694677, 7730234 ####[facility] [address] [place] [address] eGFRon 10-08-2022 GFR/1.73 sq M.predicted among non-blacks MDRD (S/P/Bld) [Vol rate/Area] 124 mL/min/1.73 m2 Normal >=59 [facility] Comment on above: Order Comment: Order added by Discern Expert. Result Comment: Coach Operator erlin kidney disease could be indicated at eGFR's of less than 60 mL/min/1.73m2. Kidney failure is indicated at less than 15 mL/min/1.73m2. Performed By: #### 2 908060, 64771695, 74730239, 0306732, 6535046 ####[facility] [address] [place] [address] PAP ACOG PANEL 2: 21 to 29on 10-23-2021 . . Normal [facility] Comment on above: Performed By: #### C BC #### [facility] [address] [address] [address] Rima Charles Age Gdln ACOG Testing 21-29 Normal [facility] Comment on above: Performed By: #### C BC #### [facility] [address] [place] [address] Dr. Rima Charles DIAGNOSIS: Comment Normal [facility] Comment on above: Result Comment: NEGA TIVE FOR INTRAEPITHELIAL LESION OR MALIGNANCY. THIS SPECIMEN WAS RESCREENED PART OF OUR LINING CLOSER PROGRAM. Performed By: #### C BC #### [facility] [address] [place] [address] Dr. Rima Charles Methodology: Comment Normal [facility] Comment on above: Result Comment: This liquid based ThinPrep(R) pap test was screened with the use of an image guided system. Performed By: #### C BC #### [facility] [address] [place] [address] Dr. Rima Charles Note: Comment Normal [facility] Comment on above: Result Comment: The Pap smear is a screening test designed to aid in the detection of premalignant and malignant conditions of the uterine cervix. It is not a diagnostic procedure and should not be used as the sole means of detecting cervical cancer. Both false-positive and false-negative reports do occur. . Performed By: #### C BC #### [facility] [address] [place] [address] Dr. Rima Charles Performed by: Comment Normal [facility] Comment on above: Result Comment: Prince Cagle, Helmet Hat Brim Cutter (ASCP) Performed By: #### C BC #### [facility] [address] [place] [address] Dr. Rima Charles QC reviewed by: Comment Normal [facility] Comment on above: Result Comment: Amanda Morejon, Supervisory Helmet Hat Brim Cutter (ASCP) Performed By: #### C BC #### [facility] [address] [place] [address] Dr. Rima Charles Reflex Criteria: Comment [facility] Comment on above: Result Comment: The HPV DNA reflex criteria were not met with this specimen result therefore, no HPV testing was performed. . Performed By: #### C BC #### [facility] [address] [place] [address] Dr. Rima Charles Specimen adequacy: Comment Normal [facility] Comment on above: Result Comment: Sati sfactory for evaluation. Endocervical and/or squamous metaplastic cells (endocervical component) are present. Areas of partially obscuring blood are present. Performed By: #### C BC #### [facility] [address] [place] [address] Dr. Rima Charles FREE T4on 10-17-2021 Free T4 [Mass/Vol] 1.01 ng/dL Normal 0.76-1.46 [facility] Comment on above: Performed By: #### F T4 #### [facility] [address] [place] [address] Dr. Rima Charles TSHon 10-17-2021 TSH 4.997 uIU/mL Critically high 0.358-3.740 [facility] Comment on above: Performed By: #### T SH #### [facility] [address] [place] [address] Dr. Rima Charles VAGINITIS/VAGINOSIS DNA PROB Esteban 07-15-2021 Tamara species Negative Normal Negative [facility] Comment on above: Performed By: #### C BC #### [facility] [address] [place] [address] Dr. Rima Charles Gardnerella vaginalis Negative Normal Negative [facility] Comment on above: Performed By: #### C BC #### [facility] [address] [place] [address] Dr. Rima Charles Trichomonas vaginalis Negative Normal Negative [facility] Comment on above: Performed By: #### C BC #### [facility] [address] [place] [address] Dr. Rima Charles CHLAMYDIA/GONOCOCCUS FRANSISCO (SW AB/URINE/PAPon 05-09-2021 Chlamydia trachomatis, FRANSISCO Negative Normal Negative [facility] Comment on above: Performed By: #### C BC #### [facility] [address] [place] [address] Dr. Rima Charles Neisseria gonorrhoeae, FRANSISCO Negative Normal Negative [facility] Comment on above: Performed By: #### C BC #### [facility] [address] [address] [address] Rima Charles VAGINITIS/VAGINOSIS DNA PROB Esteban 05-08-2021 Tamara species Negative Normal Negative [facility] Comment on above: Performed By: #### V AGINT #### [facility] [address] [address] [address] Rima Charles Gardnerella vaginalis Negative Normal Negative [facility] Comment on above: Performed By: #### V AGINT #### [facility] [address] [address] [address] Rima Charles Trichomonas vaginalis Negative Normal Negative [facility] Comment on above: Performed By: #### V AGINT #### [facility] [address] [place] [address] Dr. Rima Charles TSHon 02-24-2021 TSH 4.494 uIU/mL Normal 0.470-4.680 [facility] Comment on above: Performed By: #### C BC #### [facility] [address] [place] [address] Dr. Rima Charles TSH RANGE SEE BELOW Normal [facility] Comment on above: Result Comment: <0.3 4 UIU/ml HYPERTHYROID 0.34-5.60 UIU/ml EUTHYROID >5.60 UIU/ml HYPOTHYROID Performed By: #### C BC #### [facility] [address] [place] [address] Dr. Rima Charles AFP MATERNAL FOR SPINA BIFID Aon 2021 AFP MoM 0.98 Normal [facility] Comment on above: Performed By: #### A FPMAT #### [facility] [address] [place] [address] Dr. Rima Charles AFP Value 36.3 ng/mL Normal [facility] Comment on above: Performed By: #### A FPMAT #### [facility] [address] [place] [address] Dr. Rima Charles AFP, Serum for Spina Bifida Report Normal [facility] Comment on above: Performed By: #### A FPMAT #### [facility] [address] [address] [address] Rima Charles Comment Comment Normal [facility] Comment on above: Result Comment: Kelly Moon, Ph.D., [facility] Director . References: Available Upon Request. . Multiples Of Median Cutoffs For AFP Elevations Murphy 2.5 Black 2.8 IDD 2.0 Twins 4.5 Abbreviation Definitions IDD - Insulin Dep Diabetes OSBR - Open Spina Bifida Risk . For further inquiries contact [employer] [facility] [employer] [facility] [employer] [facility] at [phone]. Performed By: #### A FPMAT #### [facility] [address] [address] [address] Rima Charles Gest Age Collection Date 16.0 weeks [facility] Comment on above: Performed By: #### A FPMAT #### [facility] [address] [address] [address] Rima Charles Gestat, Age Based on LMP [facility] Comment on above: Result Comment: Reca lculations are not recommended when gestational dating by LMP and ultrasound are within 10 days. Performed By: #### A FPMAT #### [facility] [address] [address] [address] Rima Charles Insulin Dep Diabetes No Normal [facility] Comment on above: Performed By: #### A FPMAT #### [facility] [address] [address] [address] Rima Charles Interpretation Comment Normal [facility] Comment on above: Result Comment: Inte rpretation: [...] Customer Services to discuss available options. The [employer] recommends amniocentesis be offered to women age 35 and older. Performed By: #### A FPMAT #### [facility] [address] [address] [address] Rima Charles [age] Normal [facility] Comment on above: Performed By: #### A FPMAT #### [facility] [address] [place] [address] Dr. Rima Charles Multiple Gestation No Normal [facility] Comment on above: Performed By: #### A FPMAT #### [facility] [address] [address] [address] Rima Charles OSBR [place] 1 [place] [address] Normal [facility] Comment on above: Performed By: #### A FPMAT #### [facility] [address] [place] [address] Dr. Rima Charles PDF . Normal [facility] Comment on above: Performed By: #### A FPMAT #### [facility] [address] [place] [address] Dr. Rima Charles Race Normal [facility] Comment on above: Performed By: #### A FPMAT #### [facility] [address] [place] [address] Dr. Rima Charles Test Results: Negative Normal [facility] Comment on above: Performed By: #### A FPMAT #### [facility] [address] [place] [address] Dr. Rima Charles HEP B SURFACE ANTIGEN SCREEN on 12-10-2020 HBsAg Screen Negative Normal Negative [facility] Comment on above: Performed By: #### H BSANS #### [facility] [address] [place] [address] Dr. Rima Charles HEPATITIS C ANTIBODYon 12-10 Hep C Virus Ab <0.1 Normal 0.0-0.9 [facility] Comment on above: Result Comment: Nega tive: < 0.8 Indeterminate: 0.8 - 0.9 Positive: > 0.9 . The CDC recommends that a positive HCV antibody result be followed up with a HCV Nucleic Acid Amplification test (993035). Performed By: #### H CV #### [facility] [address] [place] [address] Dr. Rima Charles HIV 1 AND 2 WITH REFLEXon HIV Screen 4th Generation wRfx Non-Reactive Normal Non Reactive [facility] Comment on above: Performed By: #### H IV12 #### [facility] [address] [place] [address] Dr. Rima Charles RPR QUANTon 12-10-2020 Rapid Plasma Reagin, Quant Non-Reactive Normal NonRea<1:1 [facility] Comment on above: Performed By: #### C BC #### [facility] [address] [place] [address] Dr. Rima Charles RUBELLA AB IGGon 12-10-2020 Rubella Antibodies, IgG 2.33 index Normal Immune >0.99 [facility] Comment on above: Result Comment: Non- immune <0.90 Equivocal 0.90 - 0.99 Immune >0.99 Performed By: #### R UBIGG #### [facility] [address] [place] [address] Dr. Rima Charles CBC AUTO DIFFon 12-09-2020 BASO # 0.0 103/ul Normal 0.0-0.1 [facility] Comment on above: Performed By: #### C BC #### [facility] [address] [place] [address] Dr. Rima Charles Basophils/100 WBC (Bld) 0.4 % Normal 0.2-2.0 [facility] Comment on above: Performed By: #### C BC #### [facility] [address] [place] [address] Dr. Rima Charles EO # 0.0 103/ul Normal 0.0-0.[address] [facility] Comment on above: Performed By: #### C BC #### [facility] [address] [place] [address] Dr. Rima Charles Eosinophils/100 WBC (Bld) 0.6 % Critically low 0.9-7.0 [facility] Comment on above: Performed By: #### C BC #### [facility] [address] [place] [address] Dr. Rima Charles Erythrocyte distribution width (RBC) [Ratio] 12.0 % Normal 11.0-15.0 [facility] Comment on above: Performed By: #### C BC #### [facility] [address] [place] [address] Dr. Rima Charles Hematocrit (Bld) [Volume fraction] 37.5 % Normal 36.0-48.0 [facility] Comment on above: Performed By: #### C BC #### [facility] [address] [place] [address] Dr. Rima hCarles Hemoglobin (Bld) [Mass/Vol] 13.2 g/dL Normal 12.0-16.0 [facility] Comment on above: Performed By: #### C BC #### [facility] [address] [place] [address] Dr. Rima Charles IG # 0.02 10e3/ul Normal 0.00-0.03 [facility] Comment on above: Performed By: #### C BC #### [facility] [address] [place] [address] Dr. Rima Charles IG % 0.3 % Normal 0.0-0.5 [facility] Comment on above: Performed By: #### C BC #### [facility] [address] [place] [address] Dr. Rima Charles LYMPH # 1.4 103/ul Normal 1.2-3.8 [facility] Comment on above: Performed By: #### C BC #### [facility] [address] [place] [address] Dr. Rima Charles Lymphocytes/100 WBC (Bld) 20.2 % Critically low 20.5-60.0 [facility] Comment on above: Performed By: #### C BC #### [facility] [address] [place] [address] Dr. Rima Charles MANUAL DIFF REQ NO Normal [facility] Comment on above: Performed By: #### C BC #### [facility] [address] [place] [address] Dr. Rima Charles MCH (RBC) [Entitic mass] 33.2 pg Normal 26.7-34.0 [facility] Comment on above: Performed By: #### C BC #### [facility] [address] [place] [address] Dr. Rima Charles MCHC (RBC) [Mass/Vol] 35.2 g/dL Normal 29.9-35.2 [facility] Comment on above: Performed By: #### C BC #### [facility] [address] [place] [address] Dr. Rima Charles MCV (RBC) [Entitic vol] 94.5 fL Normal 81.0-99.0 [facility] Comment on above: Performed By: #### C BC #### [facility] [address] [place] [address] Dr. Rima Charles MONO # 0.4 103/ul Normal 0.3-0.8 [facility] Comment on above: Performed By: #### C BC #### [facility] [address] [place] [address] Dr. Rima Charles Monocytes/100 WBC (Bld) 6.1 % Normal 1.7-12.0 [facility] Comment on above: Performed By: #### C BC #### [facility] [address] [place] [address] Dr. Rima Charles NEUT # 5.1 103/ul Normal 1.4-6.5 [facility] Comment on above: Performed By: #### C BC #### [facility] [address] [place] [address] Dr. Rima Charles Neutrophils/100 WBC (Bld) 72.4 % Normal 43.0-75.[address] [facility] Comment on above: Performed By: #### C BC #### [facility] [address] [place] [address] Dr. Rima Charles Platelet mean volume (Bld) [Entitic vol] 11.2 fL Normal 9.5-13.[address] [facility] Comment on above: Performed By: #### C BC #### [facility] [address] [place] [address] Dr. Rima Charles PLT 221 103/ul Normal 150-[address] [facility] Comment on above: Performed By: #### C BC #### [facility] [address] [address] [address] Rima Charles RBC 3.97 106/ul Critically low 4.20-5.40 [facility] Comment on above: Performed By: #### C BC #### [facility] [address] [address] [address] Rima Charles WBC 7.1 103/ul Normal 4.0-11.0 [facility] Comment on above: Performed By: #### C BC #### [facility] [address] [address] [address] Rima Charles CULTURE URINEon 12-09-2020 CULTURE URINE Culture Observations: No growth Normal [facility] Comment on above: Performed By: #### C BC #### [facility] [address] [address] [address] Rima Charles GLYCOHEMOGLOBIN A1Con 2020 ADA RECOMMENDATION ADA THERAPEUTIC TARGET 6.0 - 7.0 ACTION SUGGESTED > 7.0 Normal [facility] Comment on above: Performed By: #### A 1C #### [facility] [address] [address] [address] Rima Charles Glucose [Mass/Vol] 111 mg/dL Normal [facility] Comment on above: Performed By: #### A 1C #### [facility] [address] [address] [address] Rima Charles HbA1c (Bld) [Mass fraction] 5.5 % Normal <=6.0 [facility] Comment on above: Performed By: #### A 1C #### [facility] [address] [address] [address] Rima Charles TAHIR BOX TEST PT SEND OUTo n 12-09-2020 SENT TO REF LAB 12/09/[address] [facility] Comment on above: Performed By: #### C BC #### [facility] [address] [address] [address] Rima Charles TSHon 12-09-2020 TSH 2.651 uIU/mL Normal 0.470-4.680 [facility] Comment on above: Performed By: #### C BC #### [facility] [address] [address] [address] Rima Charles TSH RANGE SEE BELOW Normal [facility] Comment on above: Result Comment: <0.3 4 UIU/ml HYPERTHYROID 0.34-5.60 UIU/ml EUTHYROID >5.60 UIU/ml HYPOTHYROID Performed By: #### C BC #### [facility] [address] [address] [address] Rima Charles TYPE AND SCREENon 12-09-2020 TYPE AND SCREEN Negative Normal [facility] Comment on above: Performed By: #### C BC #### [facility] [address] [address] [address] Rima Charles US PREG TVon 12-02-2020 [...] by: LILIANE POPE Date: 2020-12-02 09:34 Normal [facility] Vital Signs Date Time Vital Sign Value Performing Clinician Facility 12-10-2024 10:23-040 Body mass index (BMI) [Ratio] 24.79 kg/m2 Erum HAYS Work Phone: [facility] 12-10-2024 10:23040 Body weight 67.59 kg Erum HAYS Work Phone: [facility] 12-10-2024 10:23-040 Diastolic blood pressure 70 mm[Hg] Erum HAYS Work Phone: [facility] 12-10-2024 10:23-0400 Systolic blood pressure 120 mm[Hg] Erum HAYS Work Phone: [facility] 11-12-2024 11:45-0400 Body mass index (BMI) [Ratio] 23.15 kg/m2 Santosh Joanna DO Work Phone: [facility] 11-12-2024 11:45-0400 Body weight 63.1 kg Santosh Joanna DO Work Phone: [facility] 11-12-2024 11:45-0400 Diastolic blood pressure 72 mm[Hg] Santosh Joanna DO Work Phone: [facility] 11-12-2024 11:45-0400 Systolic blood pressure 110 mm[Hg] Santosh Joanna DO Work Phone: [facility] 11-05-2024 11:51-0400 Body height 165.1 cm Jacklyn Campos MD Work Phone: [facility] 11-05-2024 11:51-0400 Body mass index (BMI) [Ratio] 23.03 kg/m2 Jacklyn Campos MD Work Phone: [facility] 11-05-2024 11:51-0400 Body weight 62.78 kg Jacklyn Campos MD Work Phone: [facility] 11-05-2024 11:51-0400 Diastolic blood pressure 58 mm[Hg] Jacklyn Campos MD Work Phone: [facility] 11-05-2024 11:51-0400 Heart rate 94 /min Jacklyn Campos MD Work Phone: [facility] 11-05-2024 11:51-0400 Systolic blood pressure 94 mm[Hg] Jacklyn Campos MD Work Phone: [facility] 10-15-2024 10:13-0400 Body mass index (BMI) [Ratio] 22.38 kg/m2 Erum HAYS Work Phone: [facility] 10-15-2024 10:13-0400 Body weight 61.01 kg Erum HAYS Work Phone: [facility] 10-15-2024 10:13-0400 Diastolic blood pressure 70 mm[Hg] Erum HAYS Work Phone: [facility] 10-15-2024 10:13-0400 Systolic blood pressure 118 mm[Hg] Erum HAYS Work Phone: [facility] 09-17-2024 11:10-0400 Body mass index (BMI) [Ratio] 22.1 kg/m2 Santosh Joanna DO Work Phone: [facility] 09-17-2024 11:10-0400 Body weight 60.24 kg Santosh Joanna DO Work Phone: [facility] 09-17-2024 11:10-0400 Diastolic blood pressure 70 mm[Hg] Santosh Joanna DO Work Phone: [facility] 09-17-2024 11:10-0400 Systolic blood pressure 112 mm[Hg] Santosh Joanna DO Work Phone: [facility] 08-17-2024 10:00-0400 Body mass index (BMI) [Ratio] 22.86 kg/m2 [facility] 08-17-2024 10:00-0400 Body weight 62.32 kg [facility] 08-17-2024 10:00-0400 Diastolic blood pressure 78 mm[Hg] [facility] 08-17-2024 10:00-0400 Systolic blood pressure 120 mm[Hg] [facility] 12-12-2023 14:19-0400 Body mass index (BMI) [Ratio] 21.15 kg/m2 Santosh Joanna DO Work Phone: [facility] 12-12-2023 14:19-0400 Body weight 57.66 kg Santosh Joanna DO Work Phone: [facility] 12-12-2023 14:19-0400 Diastolic blood pressure 62 mm[Hg] Santosh Joanna DO Work Phone: [facility] 12-12-2023 14:19-0400 Systolic blood pressure 104 mm[Hg] Santosh Joanna DO Work Phone: [facility] 08-08-2023 15:43-0400 Blood Pressure Location Ya Thornton [facility] 08-08-2023 15:43-0400 Diastolic blood pressure 60 mm[Hg] Ya Thornton [facility] 08-08-2023 15:43-0400 Heart rate 103 /min Ya Thornton [facility] 08-08-2023 15:43-0400 Respiratory rate 18 /min Ya Thornton [facility] 08-08-2023 15:43-0400 SaO2% (BldA) [Mass fraction] 100 % Ya Thornton [facility] 08-08-2023 15:43-0400 Systolic blood pressure 124 mm[Hg] Ya Thornton [facility] 03-09-2023 07:21-0500 Blood Pressure Location Ya Thornton [facility] 03-09-2023 07:21-0500 Body temperature 97.52 [degF] Ya Thornton [facility] 03-09-2023 07:21-0500 Diastolic blood pressure 60 mm[Hg] Ya Thornton [facility] 03-09-2023 07:21-0500 Heart rate 91 /min Ya Thornton [facility] 03-09-2023 07:21-0500 Respiratory rate 18 /min Ya Thornton [facility] 03-09-2023 07:21-0500 SaO2% (BldA) [Mass fraction] 100 % Ya Thornton [facility] 03-09-2023 07:21-0500 Systolic blood pressure 108 mm[Hg] Ya Thornton [facility] 02-21-2023 12:53-0500 Blood Pressure Location Ya Thornton [facility] 02-21-2023 12:53-0500 Diastolic blood pressure 72 mm[Hg] Ya Thornton [facility] 02-21-2023 12:53-0500 Heart rate 103 /min Ya Thornton [facility] 02-21-2023 12:53-0500 Respiratory rate 18 /min Ya Thornton [facility] 02-21-2023 12:53-0500 SaO2% (BldA) [Mass fraction] 99 % Ya Thornton [facility] 02-21-2023 12:53-0500 Systolic blood pressure 110 mm[Hg] Ya Thornton [facility] 11-30-2022 12:10-0400 Blood Pressure Location Daniel Gray [facility] 11-30-2022 12:10-0400 Body temperature 97.52 [degF] Daniel Gray [facility] 11-30-2022 12:10-0400 Diastolic blood pressure 70 mm[Hg] Daniel Gray [facility] 11-30-2022 12:10-0400 Heart rate 97 /min Daniel Gray [facility] 11-30-2022 12:10-0400 Systolic blood pressure 105 mm[Hg] Daniel Gray [facility] 11-11-2022 09:20-0400 Blood Pressure Location Ya Thornton [facility] 11-11-2022 09:20-0400 Body temperature 98.06 [degF] Ya Thornton [facility] 11-11-2022 09:20-0400 Diastolic blood pressure 62 mm[Hg] Ya Thornton [facility] 11-11-2022 09:20-0400 Heart rate 76 /min Ya Thornton [facility] 11-11-2022 09:20-0400 SaO2% (BldA) [Mass fraction] 98 % Ya Thornton [facility] 11-11-2022 09:20-0400 Systolic blood pressure 112 mm[Hg] Ya Thornton [facility] 05-03-2022 14:14-0500 Blood Pressure Location Ritu Desai [facility] 05-03-2022 14:14-0500 Body temperature 97.7 [degF] Ritu Desai [facility] 05-03-2022 14:14-0500 Diastolic blood pressure 62 mm[Hg] Ritu Desai [facility] 05-03-2022 14:14-0500 Heart rate 71 /min Ritu Desai [facility] 05-03-2022 14:14-0500 SaO2% (BldA) [Mass fraction] 98 % Ritu Moralesell [facility] 05-03-2022 14:14-0500 Systolic blood pressure 118 mm[Hg] Ritu Moralesell [facility] 2021 02:06-0400 Body weight 58.[address] SANTOSH MARSHALL [facility] Comment on above: Performed By: #### AFPMAT #### [facility] [address] [place] [address] Dr. Rima Charles Encounters Encounter Date Encounter Type Care Provider Facility Start: 01-07-2025 ambulatory Marta Almanzra Faccici lity:[facility] Start: 12-11-2024 End: 12-11-2024 Clinisync Result Encounter Erum HAYS Work Phone: [facility] Unsolicited Start: 12-11-2024 End: 12-11-2024 Clinisync Result Encounter Erum HAYS Work Phone: [facility] Unsolicited Start: 12-10-2024 End: 12-10-2024 Bamboo flowsheet Erum HAYS Work Phone: [facility] Start: 12-10-2024 End: 12-10-2024 Bamboo flowsheet Erum HAYS Work Phone: [facility] Start: 12-10-2024 End: 12-10-2024 flow sheet Erum HAYS Work Phone: [facility] Comment on above: Size of fetus incons istent with dates in second trimester ([facility]) (Primary Dx); Second trimester ([facility]); 25 weeks gestation of ([facility]); Diabetes mellitus screening Start: 12-10-2024 End: 12-10-2024 ambulatory ERUM CLEMENTS Not Available Start: 11-27-2024 End: 11-27-2024 ambulatory SANTOSH Jaimes [facility] Start: 11-20-2024 End: 11-20-2024 ambulatory SANTOSH R [facility] Start: 11-12-2024 End: 11-12-2024 Bamboo flowsheet Santosh Joanna DO Work Phone: [facility] Start: 11-12-2024 End: 11-12-2024 Bamboo flowsheet Santosh Robisonzio DO Work Phone: [facility] Start: 11-12-2024 End: 11-12-2024 flow sheet Santosh Bhaktao DO Work Phone: [facility] Comment on above: Hypothyroidism, unsp ecified type (Primary Dx); Second trimester ([facility]); 21 weeks gestation of ([facility]); Vaginal discharge; STD exposure Start: 11-12-2024 End: 11-12-2024 ambulatory SANTOSH MARSHALL Not Available Start: 11-07-2024 End: 11-07-2024 Clinisync Result Encounter Santosh Joanna DO Work Phone: [facility] Unsolicited Start: 11-07-2024 End: 11-07-2024 Clinisync Result Encounter Santosh Bhaktao DO Work Phone: [facility] External Department Unsolicited Start: 11-06-2024 End: 11-06-2024 Orders Only Ayaka Smith RN [facility] Comment on above: Hypothyroidism affec ting in second trimester (Primary Dx); History of prior with IUGR ; History of premature rupture of membranes Start: 11-05-2024 End: 11-05-2024 Office consultation new/estab patient 60 min Jacklyn Campos MD Work Phone: [facility] Comment on above: 20 weeks gestation o f (Primary Dx); Low-lying placenta; 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 trimester; History of prior with IUGR ; Family history of autism; History of gestational diabetes in prior , currently ; History of prior with short cervix, currently ; History of premature rupture of membranes Start: 11-05-2024 End: 11-05-2024 ambulatory SANTOSH Theodore [facility] Start: 10-15-2024 End: 10-15-2024 Bamboo flowsheet Erum HAYS Work Phone: [facility] Start: 10-15-2024 End: 10-17-2024 Bamboo flowsheet Erum HAYS Work Phone: [facility] Start: 10-15-2024 End: 10-17-2024 Clinisync Result Encounter Eurm HAYS Work Phone: [facility] Unsolicited Start: 10-15-2024 End: 10-15-2024 flow sheet Erum HAYS Work Phone: [facility] Comment on above: Second trimester pre gnancy ([facility]); 17 weeks gestation of ([facility]) Start: 10-15-2024 End: 10-15-2024 ambulatory ERUM CLEMENTS Not Available Start: 10-02-2024 End: 10-02-2024 Clinisync Result Encounter Santosh Joanna DO Work Phone: [facility] Unsolicited Start: 10-02-2024 End: 10-02-2024 Clinisync Result Encounter Santosh Joanna DO Work Phone: [facility] Unsolicited Start: 09-24-2024 End: 09-24-2024 Chart abstracting Jacklyn Campos MD Work Phone: [facility] Start: 09-24-2024 End: 09-26-2024 Clinisync Result Encounter Santosh Joanna DO Work Phone: [facility] Unsolicited Start: 09-24-2024 End: 09-26-2024 Clinisync Result Encounter Santosh Joanna DO Work Phone: [facility] Unsolicited Start: 09-20-2024 End: 09-20-2024 Orders Only Irene Gutierrez RN [facility] Comment on above: Thyroid disease affe [...] on above: 13 weeks gestation o f ([facility]); Second trimester ([facility]); Thyroid disease ; History of [...] 07-09-2024 End: 07-09-2024 ambulatory Marta Almanzar Facility:[facility] Start: 07-05-2024 End: 07-05-2024 ambulatory Ham Robins Facility:[facility] Start: 07-04-2024 End: 07-04-2024 ambulatory Marta Almanzar Facility:[facility] Start: 07-04-2024 End: 07-04-2024 Patient encounter procedure Marta Almanzar [facility] Start: 05-14-2024 End: 05-14-2024 ambulatory CARMITA JURADO [facility] Start: 05-14-2024 End: 05-14-2024 Subsequent [...] Start: 09-07-2023 End: 09-07-2023 ambulatory Ya Thornton Facility:[facility] Start: 09-07-2023 End: 09-07-2023 Patient encounter procedure Ya Thornton [facility] Start: 08-08-2023 End: 08-08-2023 ambulatory Ya Thornton Facility:[facility] Start: 08-08-2023 End: 08-08-2023 Patient encounter procedure Ya Thornton [facility] Start: 07-12-2023 End: 07-12-2023 ambulatory OPAL LUZ Facility:[facility] Start: 07-12-2023 End: 07-12-2023 Patient encounter procedure OPAL LUZ [facility] Start: 05-16-2023 End: 05-16-2023 ambulatory Ya Thornton Facility:[facility] Start: 05-16-2023 End: 05-16-2023 ambulatory Ya Thornton Facility:[facility] Start: 04-01-2023 ambulatory Ya Thornton Facilit y:[facility] [place] Start: 03-24-2023 End: 03-24-2023 ambulatory Ya Thornton Facility:[facility] Start: 03-24-2023 End: 03-24-2023 Patient encounter procedure Ya Thornton [facility] Start: 03-22-2023 End: 03-22-2023 ambulatory Ya Thornton Facility:[facility] Start: 03-22-2023 End: 03-22-2023 Patient encounter procedure Ya Thornton [facility] Start: 03-09-2023 End: 03-09-2023 Lab Drop off Ya Thornton [facility] Start: 03-09-2023 End: 03-09-2023 ambulatory Ya Thornton Facility:[facility] Start: 03-09-2023 End: 03-09-2023 Patient encounter procedure Ya Thornton [facility] Start: 02-21-2023 End: 02-21-2023 Lab Drop off Ya Thornton [facility] Start: 02-21-2023 End: 02-21-2023 ambulatory Ya Thornton Facility:[facility] Start: 02-21-2023 End: 02-21-2023 Patient encounter procedure Ya Thornton [facility] Start: 11-30-2022 End: 11-30-2022 ambulatory [facility] Start: 11-30-2022 End: 11-30-2022 Patient encounter procedure Daniel Gray [facility] Start: 11-11-2022 [facility]ulatory [facility] Start: 11-11-2022 End: 11-11-2022 ambulatory Ya Thornton Facility:[facility] Start: 11-11-2022 End: 11-11-2022 Patient encounter procedure Ya Thornton [facility] Start: 10-08-2022 End: 10-08-2022 ambulatory Ya Thornton Facility:[facility] Start: 10-08-2022 End: 10-08-2022 ambulatory Ya Thornton Facility:[facility] Start: 05-03-2022 End: 05-03-2022 Patient encounter procedure Ritucl Moralesell [facility] Start: 10-19-2021 End: 10-19-2021 [...] Date Procedure Procedure Detail Performing Clinician Start: 12-11-2024 ALL CBC WITH AUTO DIFF Erum HAYS Work Phone: Start: 12-10-2024 Urnls dip stick/tabl et rgnt [...] Work Phone: Start: 09-24-2024 ALL MISCELLANEOUS TEST Santoshemigdio Bhaktao DO Work Phone: Start: 09-12-2024 ALL [...] Phone: Start: 12-12-2023 IGP,APTIMA HPV,AGE GDLN Santosh Bhaktao DO Work Phone: Start: 06-04-2021 Adult depression scr eening assessment Jacklyn Campos MD Work Phone: None (qualifier value) Lawson Desai Plan of Treatment Date Care Activity Detail Author Start: 05-27-2031 DTaP,Tdap and Td Vaccines (8 - Td or Tdap) DTaP,Tdap and Td Vaccines (8 - Td or Tdap) [facility] Start: 11-06-2025 End: 11-06-2025 US MFM with or without consult US MFM with or without consult Imaging Routine 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 trimester History of prior with IUGR History of premature rupture of membranes Expected: 11/06/2025 (Approximate), Expires: 11/06/2025 [employer] Work Phone: Comment on above: Expected: 11/06/2025 (Approximate), Expires: 11/06/2025 Start: 11-05-2025 [facility] Start: 11-05-2025 Tobacco Screening [facility] Start: 01-01-2025 End: 01-01-2025 Patient encounter procedure [facility] Start: 12-31-2024 End: 12-31-2024 Patient encounter procedure 12/31/2024 11:00 AM EDT Routine [facility] [address] [place] [phone] Santosh Marshall, DO [address] [place] [address] [facility] Start: 12-31-2024 End: 12-31-2024 Professional / ancillary services management 12/31/2024 10:30 AM EDT Ancillary Procedure [facility] [address] [place] [phone] [facility] Start: 12-17-2024 End: 12-17-2024 Patient encounter procedure 12/17/2024 3:00 PM EDT Office Visit [facility] [address] [place] [phone] Santosh Marshall, DO [address] [place] [address] [facility] Start: 12-11-2024 End: 12-11-2024 Patient encounter procedure 12/11/2024 2:15 PM EDT Appointment [facility] [address] [place] [phone] [facility] Start: 12-10-2024 End: 12-10-2025 CBC panel - Blood by Automated count CBC Lab Routine Diabetes mellitus screening Expected: 12/10/2024 (Approximate), Expires: 12/10/2025 [facility] Work Phone: Comment on above: Expected: 12/10/2024 (Approximate), Expires: 12/10/2025 Start: 12-10-2024 End: 12-10-2025 Measurement of glucose 1 hour after glucose challenge for glucose tolerance test Glucose tolerance, 1 hour Lab Routine Diabetes mellitus screening Expected: 12/10/2024 (Approximate), Expires: 12/10/2025 [facility] Comment on above: Expected: 12/10/2024 (Approximate), Expires: 12/10/2025 Start: 12-10-2024 End: 04-11-2025 US for US OB follow up transabdominal approach Imaging Routine Size of fetus inconsistent with dates in second trimester ([facility]) Expected: 12/10/2024, Expires: 04/11/2025 [facility] Comment on above: Expected: 12/10/2024 , Expires: 04/11/2025 Start: 12-10-2024 End: 12-10-2024 Patient encounter procedure UMESH FUENTES Comment on above: Arrived Start: 11-27-2024 End: 11-27-2024 Patient encounter procedure 11/27/2024 3:15 PM EDT Appointment [facility] [address] [place] [phone] [facility] Start: 11-20-2024 End: 11-20-2024 Patient encounter procedure 11/20/2024 3:45 PM EDT Appointment [facility] [address] [place] [address] [facility] Start: 11-19-2024 Influenza vaccination Influenza Vacc ine [facility] Start: 11-12-2024 End: 11-12-2024 Patient encounter procedure UMESH FUENTES Comment on above: Arrived Start: 11-05-2024 End: 11-05-2024 Patient encounter procedure [facility] Start: 10-21-2024 End: 09-20-2025 US MFM with or without consult US MFM with or without consult Imaging Routine Thyroid disease affecting History of prior with IUGR Expected: 10/21/2024 (Approximate), Expires: 09/20/2025 [facility] Work Phone: Comment on above: Expected: 10/21/2024 (Approximate), Expires: 09/20/2025 Start: 10-15-2024 End: 12-16-2024 Alpha fetoprotein, maternal Alpha fetoprotein, maternal Lab Routine 17 weeks gestation of ([facility]) Expected: 10/15/2024 (Approximate), Expires: 12/16/2024 [facility] Work Phone: Comment on above: Expected: 10/15/2024 (Approximate), Expires: 12/16/2024 Start: 10-15-2024 End: 10-15-2024 Patient encounter procedure [facility] Comment on above: Arrived Start: 09-17-2024 End: 09-17-2025 Measurement of glucose 1 hour after glucose challenge for glucose tolerance test Glucose tolerance, 1 hour Lab Routine Diabetes mellitus screening Expected: 09/17/2024 (Approximate), Expires: 09/17/2025 [facility] Work Phone: Comment on above: Expected: 09/17/2024 (Approximate), Expires: 09/17/2025 Start: 09-17-2024 End: 09-17-2024 Patient encounter procedure 09/17/2024 10:50 AM EDT Routine [facility] [address] [place] [id number] Santosh Marshall, [address] [place] [address] [facility] Start: 08-17-2024 End: 08-17-2025 ABO/Rh [...] first trimester Expected: 08/17/2024 (Approximate), Expires: 08/17/2025 [facility] Comment on above: Expected: 08/17/2024 (Approximate), Expires: 08/17/2025 Start: 08-09-2024 End: 11-09-2024 US Pelvis transvaginal US OB transvaginal Imaging Routine Missed menses Expected: 08/09/2024, Expires: 11/09/2024 [facility] Work Phone: Comment on above: Expected: 08/09/2024 , Expires: 11/09/2024 Start: 11-20-2023 COVID-19 (2023-04 5 season) COVID-19 ( season) [facility] Start: 11-20-2023 FLU (#1) FLU (#1) [facility] Start: 06-04-2022 Depression Screening Depression [facility] Start: 01-19-2022 ambulatory Ambulatory Facility:H 1 Start: 2019 Microscopic observat ion [Identifier] in Cervix by Cyto stain Pap Smear [facility] Start: 2019 Screening for malign ant neoplasm of cervix Pap Smear [facility] Start: 2017 Hepatitis B (1 of 3 - 19+ 3-dose series) Hepatitis B (1 of 3 - 19+ 3-dose series) [facility] Start: 01-16-2016 Adult BMI Screening Adult BMI Screen ing [facility] Start: 2014 MenB (1 of 2 - MenB 2-Dose Series Bexsero) MenB (1 of 2 - MenB 2-Dose Series Bexsero) [facility] Start: 2013 HPV (1 - 3-dose series) HPV (1 - 3-d ose series) [facility] Start: 2011 Varicella (1 of 2 - 13+ 2-dose series) Varicella (1 of 2 - 13+ 2-dose series) [facility] Start: 2010 Tobacco Screening Tobacco Screening [facility] Start: 2005 Tetanus Diphtheria a nd Pertussis Vaccines (1 - Tdap) Tetanus Diphtheria and Pertussis Vaccines (1 - Tdap) [facility] Start: 1999 MMR (1 of 1 - Standa rd series) MMR (1 of 1 - Standard series) [facility] Bacteria identified in Urine by Culture Urine culture Microbiology Routine Missed menses Ordered: 08/17/2024 [facility] Comment on above: Ordered: 08/17/2024 CBC W Auto Different ial panel - Blood CBC and differential Lab Routine Missed menses , unspecified gestational age Ordered: 08/17/2024 [facility] Comment on above: Ordered: 08/17/2024 CHLAMYDIA TRACHOMATI S (GENITO/STI) CHLAMYDIA TRACHOMATIS (GENITO/STI) Lab Routine STD exposure Ordered: 11/12/2024 [facility] Comment on above: Ordered: 11/12/2024 Cytology Cervical or vaginal smear or scraping study Pap Smear Pathology and Cytology Routine Well woman exam with routine gynecological exam Ordered: 12/12/2023 [facility] Work Phone: Comment on above: Ordered: 12/12/2023 End: 05-14-2024 DNA Extraction and hold [facility] Work Phone: Comment on above: 1 Occurrences starti ng 05/14/2024 until 05/14/2024, 1 completed Hemoglobin A1c/Hemoglobin.total in Blood Hemoglobin A1c Lab Routine Missed menses , unspecified gestational age Ordered: 08/17/2024 [facility] Comment on above: Ordered: 08/17/2024 Hepatitis B virus surface Ag [Presence] in Serum or Plasma by Immunoassay Hepatitis B surface antigen Lab Routine Missed menses , unspecified gestational age Ordered: 08/17/2024 [facility] Comment on above: Ordered: 08/17/2024 Hepatitis C virus Ab [Presence] in Serum or Plasma by Immunoassay Hepatitis C antibody Lab Routine Missed menses , unspecified gestational age Ordered: 08/17/2024 [facility] Comment on above: Ordered: 08/17/2024 HIV-1/HIV-2 antigen/antibody combination immunoassay HIV-1 and HIV-2 antibodies Lab Routine Missed menses , unspecified gestational age Ordered: 08/17/2024 [facility] Comment on above: Ordered: 08/17/2024 Neisseria gonorrhoea e DNA [Presence] in Unspecified specimen by FRANSISCO with probe detection Neisseria gonorrhea DNA probe, direct Lab Routine STD exposure Ordered: 11/12/2024 [facility] Comment on above: Ordered: 11/12/2024 Reagin Ab [Presence] in Serum by RPR RPR Lab Routine Missed menses , unspecified gestational age Ordered: 08/17/2024 [facility] Comment on above: Ordered: 08/17/2024 Rubella antibody, IgG Rubella an tibody, IgG Lab Routine Missed menses , unspecified gestational age Ordered: 08/17/2024 [facility] Comment on above: Ordered: 08/17/2024 SURESWAB(R) ADVANCED VAGINITIS PLUS, TMA SURESWAB(R) ADVANCED VAGINITIS PLUS, TMA Pathology and Cytology Routine Vaginal discharge Ordered: 11/12/2024 [facility] Work Phone: Comment on above: Ordered: 11/12/2024 Thyrotropin [Units/volume] in Serum or Plasma TSH Lab Routine Missed menses , unspecified gestational age Encounter for supervision of normal first in first trimester Ordered: 08/17/2024 [facility] Comment on above: Ordered: 08/17/2024 End: 11-12-2025 Thyrotropin [Units/volume] in Serum or Plasma TSH Lab Routine Hypothyroidism, unspecified type 9 Occurrences starting 11/12/2024 until 11/12/2025 [facility] Work Phone: Comment on above: 9 Occurrences starti ng 11/12/2024 until 11/12/2025 US Pelvis transvaginal US OB tra nsvaginal Imaging Routine Missed menses 08/17/2024 9:27 AM EDT [facility] Immunizations Immunization Date Immunization Notes Care Provider Fa cility 05-26-2021 tetanus toxoid, reduced diphtheria toxoid, and acellular pertussis vaccine, adsorbed Ya Thornton [facility] 10-21-2015 meningococcal B vaccine, fully recombinant Ya Thornton [facility] 09-15-2015 meningococcal ACWY vaccine, unspecified formulation Ya Thornton [facility] 09-15-2015 meningococcal B vaccine, fully recombinant Ya Thornton [facility] 06-22-2010 meningococcal ACWY vaccine, unspecified formulation Ya Thornton [facility] 06-22-2010 tetanus toxoid, reduced diphtheria toxoid, and acellular pertussis vaccine, adsorbed Ya Thornton [facility] 01-30-2009 influenza virus vaccine, unspecified formulation Jacklyn Campos MD Work Phone: [facility] 10-16-2003 DTaP, unspecified formulation Ya Thornton [facility] 10-16-2003 measles, mumps and rubella virus vaccine Ya Thornton [facility] 10-16-2003 poliovirus vaccine, unspecified formulation Ya Thornton [facility] 02-03-2000 DTaP, unspecified formulation Yadaniel Thornton [facility] 01-26-1999 measles, mumps and rubella virus vaccine Ya Norberto [facility] 01-26-1999 varicella virus vaccine Yadaniel Thornton [facility] 1998 DTaP, unspecified formulation Ya Thornton [facility] 1998 DTaP, unspecified formulation Yadaniel Thornton [facility] 1998 DTaP, unspecified formulation Ya Thornton [facility] 1998 hepatitis B vaccine, pediatric or pediatric/adolescent dosage Ya Norberto [facility] NEGATED: Highlighted row has not occurred!11-29-2022 influenza virus vaccine, unspecified formulation Daniel Isaac [facility] NEGATED: Highlighted row has not occurred!05-03-2022 influenza virus vaccine, unspecified formulation Ritu Desai [facility] Payers Date Payer Category [facility] [id number] 2024 Александр Cross Александр Jaeger Managed Care - O [id number] 2023 Unknown [id number] 2023 Unknown [id number] 2023 Unknown 2023 Unknown [id number] 2022 Private Health Insurance [id number] 2022 Medicaid HMO [employer] [id number] 2019 Managed Care Other (unspecified) [employer] [id number] 1998 Unknown [id number] 2.16.840.1.563410.3.579.2. 593 1998 Unknown [id number] 2.16.840.1.039184.3.579.2. 593 1998 Unknown [id number] 2.16.840.1.001254.3.579.2. 593 1998 Unknown [id number] 2.16.840.1.503113.3.579.2. 593 1998 Unknown [id number] 2.16.840.1.297142.3.579.2. 593 1998 Unknown [id number] 2.16.840.1.280384.3.579.2. 593 1998 Unknown [id number] 2.16.840.1.806713.3.579.2. 593 1998 Unknown [id number] 2.16.840.1.391130.3.579.2. 593 1998 Unknown [id number] 2.16.840.1.970659.3.579.2. 593 1998 Unknown [id number] 2.16.840.1.801631.3.579.2. 593 1998 Unknown [id number] 2.16.840.1.805974.3.579.2. 727 1998 Unknown [id number] 2.16.840.1.003075.3.579.2. 727 1998 Unknown [id number] 2.16.840.1.029949.3.579.2. 727 1998 Unknown [id number] 2.16.840.1.634165.3.579.2. 727 1998 Unknown [id number] 2.16.840.1.650037.3.579.2. 727 1998 Unknown [id number] 2.16.840.1.868121.3.579.2. 727 1998 Unknown [id number] 2.16.840.1.485844.3.579.2. 727 1998 Unknown [id number] 2.16.840.1.073614.3.579.2. 727 1998 Unknown [id number] 2.16.840.1.762232.3.579.2. 727 1998 Unknown [id number] 2.16.840.1.976842.3.579.2. 727 1998 Unknown [id number] 2.16.840.1.547894.3.579.2. 727 1998 Unknown [id number] 2.16.840.1.826928.3.579.2. 727 1998 Unknown [id number] 2.16.840.1.543307.3.579.2. 727 1998 Unknown [id number] 2.16.840.1.724298.3.579.2. 727 1998 Unknown [id number] 2.16.840.1.007027.3.579.2. 727 1998 Unknown [id number] 2.16.840.1.938380.3.579.2. 727 1998 Unknown [id number] 2.16.840.1.693229.3.579.2. 479 1998 Unknown [id number] 2.16.840.1.208928.3.579.2. 727 1998 Unknown [id number] 2.16.840.1.181961.3.579.2. 727 1998 Unknown [id number] 2.16.840.1.587191.3.579.2. 727 1998 Unknown [id number] 2.16.840.1.066549.3.579.2. 727 1998 Unknown [id number] 2.16.840.1.608775.3.579.2. 727 1998 Unknown [id number] 2.16.840.1.043858.3.579.2. 727 1998 Unknown [id number] 2.16.840.1.331733.3.579.2. 727 1998 Unknown [id number] 2.16.840.1.223224.3.579.2. 1286 1998 Unknown [id number] 2.16.840.1.896060.3.579.2. 1286 1998 Unknown [id number] 2.16.840.1.350600.3.579.2. 1286 1998 Unknown [id number] 2.16.840.1.452475.3.579.2. 1286 1998 Unknown [id number] 2.16.840.1.987350.3.579.2. 1259 1998 Unknown [id number] 2.16.840.1.331928.3.579.2. 1259 1998 Unknown [id number] 2.16.840.1.753260.3.579.2. 1259 1998 Unknown [id number] 2.16.840.1.109916.3.579.2. 1259 1998 Unknown [id number] 2.16.840.1.201413.3.579.2. 1259 1998 Unknown [id number] 2.16.840.1.523742.3.579.2. 1259 1998 Unknown [id number] 2.16.840.1.024900.3.579.2. 1259 1959 Self-pay 1959 Unknown [id number] 1959 Unknown [id number] 1959 Unknown [id number] Unknown [id number] 2.16.840.1.701403.3.579.2. 593 Social History Date Type Detail Facility Start: 05-03-2022 End: 11-17-2022 Tobacco smoking status Never smoked tobacco (finding) [facility] Tobacco smoking status Never [facility] Start: 07-12-2023 End: 12-12-2023 [facility] Start: 12-12-2023 End: 09-17-2024 Alcoholic beverage intake Current drinker of alcohol (finding) [facility] Start: 07-12-2023 End: 12-12-2023 History of Social function [facility] Start: 11-17-2022 Alcohol Comment occasional alcohol u se [facility] Start: 1998 Sex assigned at Not on file N [facility] Tobacco smoking stat [facility] Tobacco smoking consumption unknown [facility] Sexual Orientation [facility] Start: 07-02-2009 End: 12-03-2020 Sex Female (finding) [facility] Start: 06-30-2024 [facility] Start: 12-23-2020 Tobacco use and exposure Smokeless tobacco non-user [facility] Start: 09-24-2024 End: 11-05-2024 Alcoholic beverage intake Ex-drinker (finding) [facility] The thought of richard rosario myself has occurred to me Never [facility] Medical Equipment Procedure Code Equipment Code Equipment Origin al Text Equipment Identifier Dates Glucose Test Str ips, See Instructions, 1 EA, 3, Glucose Test Strips, [facility], Supply, 166, cm, 10/08/22 15:10:00 EDT, Height/Length Dosing, 57.8, kg, 10/08/22 15:10:00 EDT, Weight Dosing Start: 10-08-2022 Lancets, See Instructions, 100 lancet(s), 3, Lancets, [facility], Supply, 166, cm, 10/08/22 15:10:00 EDT, Height/Length Dosing, 57.8, kg, 10/08/22 15:10:00 EDT, Weight Dosing Start: 10-08-2022 Glucose Test Str ips, See Instructions, 1 EA, 3, Glucose Test Strips, [facility], Supply, 166, cm, 10/08/22 15:10:00 EDT, Height/Length Dosing, 57.8, kg, 10/08/22 15:10:00 EDT, Weight Dosing Start: 10-08-2022 Lancets, See Instructions, 100 lancet(s), 3, Lancets, [facility], Supply, 166, cm, 10/08/22 15:10:00 EDT, Height/Length Dosing, 57.8, kg, 10/08/22 15:10:00 EDT, Weight Dosing Start: 10-08-2022 Glucose Test Str ips, See Instructions, 1 EA, 3, Glucose Test Strips, [facility], Supply, 166, cm, 10/08/22 15:10:00 EDT, Height/Length Dosing, 57.8, kg, 10/08/22 15:10:00 EDT, Weight Dosing Start: 10-08-2022 Lancets, See Instructions, 100 lancet(s), 3, Lancets, [facility], Supply, 166, cm, 10/08/22 15:10:00 EDT, Height/Length Dosing, 57.8, kg, 10/08/22 15:10:00 EDT, Weight Dosing Start: 10-08-2022 Glucose Test Str ips, See Instructions, 1 EA, 3, Glucose Test Strips, [facility], Supply, 166, cm, 10/08/22 15:10:00 EDT, Height/Length Dosing, 57.8, kg, 10/08/22 15:10:00 EDT, Weight Dosing Start: 10-08-2022 Lancets, See Instructions, 100 lancet(s), 3, Lancets, [facility], Supply, 166, cm, 10/08/22 15:10:00 EDT, Height/Length Dosing, 57.8, kg, 10/08/22 15:10:00 EDT, Weight Dosing Start: 10-08-2022 Glucose Test Str ips, See Instructions, 1 EA, 3, Glucose Test Strips, [facility], Supply, 166, cm, 10/08/22 15:10:00 EDT, Height/Length Dosing, 57.8, kg, 10/08/22 15:10:00 EDT, Weight Dosing Start: 10-08-2022 Lancets, See Instructions, 100 lancet(s), 3, Lancets, [facility], Supply, 166, cm, 10/08/22 15:10:00 EDT, Height/Length Dosing, 57.8, kg, 10/08/22 15:10:00 EDT, Weight Dosing Start: 10-08-2022 Glucose Test Str ips, See Instructions, 1 EA, 3, Glucose Test Strips, [facility], Supply, 166, cm, 10/08/22 15:10:00 EDT, Height/Length Dosing, 57.8, kg, 10/08/22 15:10:00 EDT, Weight Dosing Start: 10-08-2022 Lancets, See Instructions, 100 lancet(s), 3, Lancets, [facility], Supply, 166, cm, 10/08/22 15:10:00 EDT, Height/Length Dosing, 57.8, kg, 10/08/22 15:10:00 EDT, Weight Dosing Start: 10-08-2022 Glucose Test Str ips, See Instructions, 1 EA, 3, Glucose Test Strips, [facility], Supply, 166, cm, 10/08/22 15:10:00 EDT, Height/Length Dosing, 57.8, kg, 10/08/22 15:10:00 EDT, Weight Dosing Start: 10-08-2022 Lancets, See Instructions, 100 lancet(s), 3, Lancets, [facility], Supply, 166, cm, 10/08/22 15:10:00 EDT, Height/Length Dosing, 57.8, kg, 10/08/22 15:10:00 EDT, Weight Dosing Start: 10-08-2022 Glucose Test Str ips, See Instructions, 1 EA, 3, Glucose Test Strips, [facility], Supply, 166, cm, 10/08/22 15:10:00 EDT, Height/Length Dosing, 57.8, kg, 10/08/22 15:10:00 EDT, Weight Dosing Start: 10-08-2022 Lancets, See Instructions, 100 lancet(s), 3, Lancets, [facility], Supply, 166, cm, 10/08/22 15:10:00 EDT, Height/Length Dosing, 57.8, kg, 10/08/22 15:10:00 EDT, Weight Dosing Start: 10-08-2022 Glucose Test Str ips, See Instructions, 1 EA, 3, Glucose Test Strips, [facility], Supply, 166, cm, 10/08/22 15:10:00 EDT, Height/Length Dosing, 57.8, kg, 10/08/22 15:10:00 EDT, Weight Dosing Start: 10-08-2022 Lancets, See Instructions, 100 lancet(s), 3, Lancets, [facility], Supply, 166, cm, 10/08/22 15:10:00 EDT, Height/Length Dosing, 57.8, kg, 10/08/22 15:10:00 EDT, Weight Dosing Start: 10-08-2022 Glucose Test Str ips, See Instructions, 1 EA, 3, Glucose Test Strips, [facility], Supply, 166, cm, 10/08/22 15:10:00 EDT, Height/Length Dosing, 57.8, kg, 10/08/22 15:10:00 EDT, Weight Dosing Start: 10-08-2022 Lancets, See Instructions, 100 lancet(s), 3, Lancets, [facility], Supply, 166, cm, 10/08/22 15:10:00 EDT, Height/Length Dosing, 57.8, kg, 10/08/22 15:10:00 EDT, Weight Dosing Start: 10-08-2022 Glucose Test Str ips, See Instructions, 1 EA, 3, Glucose Test Strips, [facility], Supply, 166, cm, 10/08/22 15:10:00 EDT, Height/Length Dosing, 57.8, kg, 10/08/22 15:10:00 EDT, Weight Dosing Start: 10-08-2022 Lancets, See Instructions, 100 lancet(s), 3, Lancets, [facility], Supply, 166, cm, 10/08/22 15:10:00 EDT, Height/Length Dosing, 57.8, kg, 10/08/22 15:10:00 EDT, Weight Dosing Start: 10-08-2022 Glucose Test Str ips, See Instructions, 1 EA, 3, Glucose Test Strips, [facility], Supply, 166, cm, 10/08/22 15:10:00 EDT, Height/Length Dosing, 57.8, kg, 10/08/22 15:10:00 EDT, Weight Dosing Start: 10-08-2022 Lancets, See Instructions, 100 lancet(s), 3, Lancets, [facility], Supply, 166, cm, 10/08/22 15:10:00 EDT, Height/Length Dosing, 57.8, kg, 10/08/22 15:10:00 EDT, Weight Dosing Start: 10-08-2022 Use daily as directed & as needed Start: 03-26-2021 Functional Status Date Assessment Result Facility 08-08-2023 Functional Status N/A [facility] 03-09-2023 Functional Status N/A [facility] 02-21-2023 Functional Status N/A [facility] 11-30-2022 Functional Status N/A [facility] 11-11-2022 Functional Status N/A [facility] 05-03-2022 Functional Status N/A [facility] Clinical Notes 05-03-2022 to 12-10-2024 LSI Man - 12/10/2024 10:00 AM EDRuben Stone NP - 11/12/2024 11:10 AM Virginia Salazar RN - 11/05/2024 1:00 PM EDTJacklyn Campos MD - 11/05/2024 1:00 PM EDTLaboratoryLaboratory [...] ASSESSMENT & PLAN ICD-10-CM 1. Second trimester ([facility]) Z34.92 POCT urinalysis dipstick manually resulted 2. 25 weeks gestation of ([facility]) Z3A.25 3. Diabetes mellitus screening Z13.1 CBC [...] of: LIS Man documented in this encounter [facility] 11-12-2024 History of Present illness Narrative Reason [...] nursing note reviewed. Exam conducted with a automobile drivers present. Vitals: Estimated body mass index is 23.15 kg/m as calculated from the following: Height as of 11/29/22: 5' 5 . Weight as of this encounter: 139 lb 1.9 oz. BP: 110/72 Patient's last menstrual period was 06/16/2024. ASSESSMENT & PLAN ICD-10-CM 1. Second trimester ([facility]) Z34.92 POCT urinalysis dipstick manually resulted 2. 21 weeks gestation of ([facility]) Z3A.21 POCT urinalysis dipstick manually resulted 3. [...] 4 weeks; She is followed closely per [facility] with history of hypothyroidism. Will obtain growth ultrasounds every 4 weeks and begin NST/BPP at 32 weeks. Documented by Abril Stone NP on behalf of: Santosh Marshall DO documented in this encounter [facility] 11-05-2024 History of Present illness Narrative Headache/epigastric [...] risk Have you been seen here at [facility] in a previous ? Recent ER visits or hospitalizations? No Bring blood sugar log or meter with you today? (Please bring them with you for every visit at [facility]) NA Flu vaccine (Jan-May)? NA Any concerns [...] Jacklyn Campos MD, FACOG (she/hers) Maternal- Medicine [facility] [address] [facility] [address] [place] [address] This document was created with [email or web address] technology. Though I make every effort to review the dictation as it is transcribed, on occasion the spoken word can be misinterpreted by the technology leading to inappropriate words, phrases, or sentences. This note is addressed to the requesting provider as a consultation for clinical guidance. Specific medical abbreviations are occasionally used and those are generally approved by the [place]?Board of?Obstetrics and?Gynecology?as well as?Lucy campos abbreviations. The above plan of care was based solely on the diagnoses for which a consultation was requested. ?More frequent testing may be indicated based on her other medical/obstetrical conditions. The management of other or medical conditions is beyond the scope of requested consultation and will continue to be followed by the primary highway commissioner or primary care provider. Note to patient: The 21st Century Cures Act makes medical notes like [...] of the practitioner. documented in this encounter [facility] 10-15-2024 History of Present illness Narrative [...] ASSESSMENT & PLAN ICD-10-CM 1. Second trimester ([facility]) Z34.92 2. 17 weeks gestation of ([facility]) Z3A.17 POCT urinalysis dipstick manually [...] of: LIS Man documented in this encounter [facility] 09-17-2024 History of Present illness Narrative Reason [...] nursing note reviewed. Exam conducted with a automobile drivers present. Vitals: Estimated body mass index is 22.1 kg/m as calculated from the following: Height as of 11/29/22: 5' 5 . Weight as of this encounter: 132 lb 12.8 oz. BP: 112/70 Patient's last menstrual period was 06/16/2024. ASSESSMENT & PLAN ICD-10-CM 1. 13 weeks gestation of ([facility]) Z3A.13 2. Second trimester ([facility]) Z34.92 3. Thyroid disease E07.9 [...] or undercooked meat, and stay away from [facility]. Patient has been consulted regarding any further do's and don'ts of . Patient voiced understanding and all questions and concerns were answered. Pt has h/o IUGR, thyroid disease, pt being referred to [facility] for level II ultrasound. Pt should be taking 125mcg of levothyroxine. Pt voiced understanding. Pt to start baby aspirin. Orders Placed This Encounter Procedures Glucose tolerance, 1 hour Follow Up: Patient is to return in 4 weeks for routine OB appointment. Documented by Aliya Jeronimo LPN on behalf of: Santosh Marshall DO documented in this encounter [facility] 08-17-2024 History of Present illness [...] or undercooked meat, and stay away from [facility]. Patient has also been advised to not change litter boxes and eat 6 small meals a day. Patient has been consulted regarding the do's and don'ts of . Patient was given labs and all questions and concerns were answered. Patient was sent in Magnesium for headaches. Patient given [place] labs to do with initial labs along [...] Carmita Tapia LPN documented in this encounter [facility] 07-09-2024 Note Patient Education Endocrinology [...] Follow these instructions at home: ??? Take rsnl-wls-jwikiks and prescription medicines only as told by [...] provider. Document Revised: 03/09/2022 Document Reviewed: 03/09/2022 [employer] Out Patient Education ? 2023 [employer] Obstetrics and Gynecology Health Maintenance, Female Adopting a healthy lifestyle and getting preventive care are important in promoting health and wellness. Ask your health care provider about: ??? The right schedule for you to have regular tests and exams. ??? Things (more content not included)... [facility] 07-05-2024 Note Patient Education ENT How [...] cannot use soap and water, use hand state assessed properties director. 2. Wash your device using the directions [...] provider. Document Revised: 08/24/2021 Document Reviewed: 08/24/2021 Night Out Patient Education ? 2023 [employer] Infectious Disease Sinus Infection, Adult A sinus [...] diagnosed? Your s (more content not included)... [facility] 12-12-2023 History of Present illness Narrative Reason for Appointment: Patient ID: Yana Church is a 23 y.o. female who presents for [facility] Visit Patient presents today for Annual [...] nursing note reviewed. Exam conducted with a automobile drivers present. Vitals: Estimated body mass index is [...] Santosh Marshall DO documented in this encounter [facility] 08-08-2023 Hospital Discharge instructions Patient [...] to help relieve pain. General instructions Take warv-xar-kqchhpr and prescription medicines only as told by [...] provider. Document Revised: 10/22/2020 Document Reviewed: 10/22/2020 Night Out Patient Education 2022 [employer]. 08/08/2023 16:25:44 Hemorrhoids Hemorrhoids Hemorrhoids are [...] 3 times a day. General instructions Take efxw-aoq-ymuwlid and prescription medicines only as told by [...] provider. Document Revised: 09/16/2021 Document Reviewed: 09/16/2021 Night Out Patient Education 2022 [employer]. 08/08/2023 16:25:43 Urinary Tract Infection, Adult [...] Treatment for this condition includes: Antibiotic medicine. Nknz-ljt-pdymsjc medicines to treat discomfort. Drinking enough water [...] Follow these instructions at home: Medicines Take pwzu-qld-eqozign and prescription medicines only as told by [...] provider. Document Revised: 10/17/2020 Document Reviewed: 10/17/2020 Night Out Patient Education 2022 [employer]. 08/08/2023 16:25:41 Hypothyroidism Hypothyroidism Hypothyroidism is [...] away. Follow these instructions at home: Take pmuj-duy-nrzdxzu and prescription medicines only as told by [...] provider. Document Revised: 03/09/2022 Document Reviewed: 03/09/2022 Night Out Patient Education 2022 [employer]. [facility] 08-08-2023 Evaluation + Plan note Future Scheduled TestsUA with Cult Rflx 08/08/23CBC w/ Auto Diff 02/08/24Comprehensive Metabolic Panel 02/08/24Thyroid Stimulating Hormone 02/08/24Thyroid Stimulating Hormone 05/16/23Free T4 02/08/24Free T4 05/16/23 [facility] 03-09-2023 Hospital Discharge instructions [...] including vitamins, herbs, eye drops, creams, and qaef-ynd-oomvwpf medicines. ?Whether you are or may be [...] provider. Document Revised: 11/18/2021 Document Reviewed: 10/10/2020 Night Out Patient Education 2022 [employer]. 03/09/2023 08:08:48 Urinary Tract Infection, Adult [...] Treatment for this condition includes: Antibiotic medicine. Tauy-etg-ujvcyjr medicines to treat discomfort. Drinking enough water [...] Follow these instructions at home: Medicines Take klmi-ftp-aqiokfn and prescription medicines only as told by [...] provider. Document Revised: 10/17/2020 Document Reviewed: 10/17/2020 Night Out Patient Education 2022 [employer]. 03/09/2023 08:08:46 Hypothyroidism Hypothyroidism Hypothyroidism is [...] away. Follow these instructions at home: Take jvzb-vep-eukehnd and prescription medicines only as told by [...] provider. Document Revised: 03/09/2022 Document Reviewed: 03/09/2022 [employer] Patient Education 2022 [employer]. Follow Up Care 03/07/2023 12:06:45 With:Ya Wang FAM, MED Address: Ladarius Barraza, [address] [address]- Business (1) When:05/25/2023 Comments:for f/u [facility] 02-21-2023 Hospital Discharge instructions [...] Follow these instructions at home: Medicines Take lzhc-usn-dqpwzjz and prescription medicines only as told by [...] provider. Document Revised: 10/17/2020 Document Reviewed: 10/17/2020 Night Out Patient Education 2022 [employer]. Follow Up Care 02/21/2023 08:19:47 With:aY Wang FAM, MED Address: [address] [place] [address] [facility] (1) When:05/25/2023 Comments:for f/u [facility] 11-30-2022 Hospital Discharge instructions [...] Bulgur wheat. Millet. Quinoa. Bran muffins. Popcorn. Joppa wafer crackers. Meats and other proteins [place] beans, kidney beans, and díaz beans. Soybeans. [...] Cream cheese. Sour cream. Fats and oils [place]. Beverages Soft drinks. Other foods Cakes and [...] provider. Document Revised: 07/10/2020 Document Reviewed: 07/10/2020 [employer] Patient Education 2022 [employer]. Follow Up Care 11/11/2022 12:10:41 With:Daniel Gray CNP Address: When:2 weeks Comments:Following EGD/Colonoscopy. [facility] 11-11-2022 Hospital Discharge instructions [...] per serving. Talk with a diet and public health nutritionist (dietitian) if you have questions about specific [...] Bulgur wheat. Millet. Quinoa. Bran muffins. Popcorn. Joppa wafer crackers. Meats and other proteins [place], kidney, and díaz beans. Soybeans. Split peas. [...] Cream cheese. Sour cream. Fats and oils [place]. Beverages Soft drinks. Other foods Cakes and [...] 03/07/2006 Document Revised: 01/09/2018 Document Reviewed: 01/09/2018 Night Out Patient Education 2020 [employer]. 11/11/2022 01:00:54 Hemorrhoids Hemorrhoids Hemorrhoids are [...] 3 times a day. General instructions Take vjtf-yjs-dtbvzav and prescription medicines only as told by [...] provider. Document Revised: 09/16/2021 Document Reviewed: 09/16/2021 Night Out Patient Education 2022 [employer]. Follow Up Care 11/08/2022 14:59:04 With:Ya Wang FAM, [facility] Address: [address] [place] [address] [place] [phone] Business (1) When:Within 3 Month(s) Comments:3 mo f/u [facility] 05-03-2022 Hospital Discharge instructions [...] away. Follow these instructions at home: Take egen-rps-nzytifp and prescription medicines only as told by [...] 03/07/2006 Document Revised: 02/17/2018 Document Reviewed: 02/15/2018 Night Out Patient Education 2020 [employer]. Follow Up Care 04/05/2022 12:35:49 With:Ritu Desai CNP Address: [address] [place] [phone] When:1 year Comments:or sooner if needed. [facility] Evaluation + Plan note No data available for this section [facility] Evaluation + Plan note Future Appointments Appointment Date:11/30/2022 12:00:00 PM Scheduled Provider:Daniel Gray CNP Location[facility] Appointment Type:BADH New Patient Appointment Date:04/04/2023 01:00:00 PM Scheduled Provider:Ya Wang Location:[facility] Appointment Type:FM Open Future Scheduled TestsTSH With T4fr Reflex 10/08/22 [facility] Evaluation + Plan note Future Appointments Appointment Date:04/04/2023 01:00:00 PM Scheduled Provider:Ya Wang Location:[facility] Appointment Type:FM Open Future Scheduled TestsTSH With T4fr Reflex 10/08/22 [facility] Evaluation + Plan note Future Appointments Appointment Date:07/25/2023 10:00:00 AM Scheduled Provider:Ya Wang Location:[facility] Appointment Type:FM Open Future Scheduled TestsT3 Free 02/21/23Thyroid Stimulating Hormone 02/21/23Free T4 02/21/23 [facility] Evaluation + Plan note Future Appointments Appointment Date:07/25/2023 10:00:00 AM Scheduled Provider:Ya Wang Location:[facility] Appointment Type:FM Open Diagnostic Tests PendingUrine Culture 02/21/23 Future Scheduled TestsT3 Free 02/21/23Thyroid Stimulating Hormone 02/21/23Free T4 02/21/23 [facility] Evaluation + Plan note Future Appointments Appointment Date:07/25/2023 10:00:00 AM Scheduled Provider:Ya Wang Location:[facility] Appointment Type:FM Open Future Scheduled TestsT3 Free 02/21/23Thyroid Stimulating Hormone 02/21/23Free T4 02/21/23US Retroperitoneal Complete 03/09/23 [facility] Evaluation + Plan note Future Appointments Appointment Date:07/25/2023 10:00:00 AM Scheduled Provider:Ya Wang Location:[facility] Appointment Type:FM Open Diagnostic Tests PendingUrine Culture 03/09/23 Future Scheduled TestsT3 Free 02/21/23Thyroid Stimulating Hormone 02/21/23Free T4 02/21/23US Retroperitoneal Complete 03/09/23 [facility] Evaluation + Plan note Future Appointments Appointment Date:07/12/2023 09:30:00 AM Scheduled Provider:OPAL LUZ PA-C Location[facility] Appointment Type:URO New Patient Appointment Date:07/25/2023 10:00:00 AM Scheduled Provider:Ya Wang Location:[facility] Appointment Type:FM Open Diagnostic Tests PendingT3 Free 03/22/23 [facility] Evaluation + Plan note Future Appointments Appointment Date:07/12/2023 09:30:00 AM Scheduled Provider:OPAL LUZ PA-C Location:[facility] Appointment Type:URO New Patient Appointment Date:07/25/2023 10:00:00 AM Scheduled Provider:Ya Wang Location:[facility] Appointment Type:FM Open [facility] Evaluation + Plan note Future Appointments Appointment Date:07/25/2023 10:00:00 AM Scheduled Provider:Ya Wang Location:[facility] Appointment Type:FM Open Future Scheduled TestsThyroid Stimulating Hormone 05/16/23Free T4 05/16/[address] [facility] Evaluation + Plan note Future Scheduled TestsCBC w/ Auto Diff 02/08/24Comprehensive Metabolic Panel 02/08/24Thyroid Stimulating Hormone 02/08/24Free T4 02/08/24 [facility] Evaluation + Plan note Future Appointments Appointment Date:07/09/2024 08:00:00 AM Scheduled Provider:Marta Rivas Location:[facility] Appointment Type:FM New Patient - Adult Future Scheduled TestsCBC w/ Auto Diff 02/08/24Comprehensive Metabolic Panel 02/08/24Thyroid Stimulating Hormone 02/08/24Free T4 02/08/24 [facility] Evaluation note Diagnosis Well woman exam with routine gynecological exam Routine gynecological examination [facility] Diagnosis Family history of autism Family history of psychiatric condition [facility] Diagnosis Missed menses , unspecified gestational [...] for diabetes mellitus documented in this encounter [facility]* Diagnosis Thyroid disease affecting - Primary History of prior with IUGR [facility] Diagnosis Second trimester (HHS-HCC) state, [...] rupture of membranes [facility] Diagnosis 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 trimester- Primary History of prior with IUGR History of premature rupture of membranes [facility] Diagnosis Hypothyroidism, unspecified type- Primary Second trimester (HHS-HCC) state, incidental 21 weeks gestation of (HHS-HCC) Vaginal discharge Leukorrhea, not specified as infective STD exposure documented in this encounter [facility] Healthcare[facility]* Diagnosis Size of fetus inconsistent with dates in second trimester (HHS-HCC)- Primary Second trimester (HHS-HCC) state, incidental 25 weeks gestation of ([facility]) Diabetes mellitus screening Screening for diabetes mellitus documented in this encounter [facility] HealthcareHospital Discharge instructions No data available for this section [facility] filedocumented in this encounter [facility] filedocumented in this encounter [facility] on filedocumented in this encounter [facility]Not on filedocumented in this encounter [facility] No data available for this section [facility] Summary Purpose Family History [...] and content) DATE CREATED AUTHOR 11/15/2021 [facility] DATE CREATED AUTHOR AUTHOR'S ORGANIZ ATION 09/09/2023 [facility] DATE CREATED AUTHOR AUTHOR'S ORGANIZ ATION 05/21/2024 [facility] DATE CREATED AUTHOR AUTHOR'S ORGANIZ ATION 07/06/2024 [facility] DATE CREATED AUTHOR AUTHOR'S ORGANIZ ATION 07/10/2024 [facility] DATE CREATED AUTHOR AUTHOR'S ORGANIZ ATION 07/13/2024 [facility] DATE CREATED AUTHOR AUTHOR'S ORGANIZ ATION 11/21/2024 [facility] DATE CREATED AUTHOR AUTHOR'S ORGANIZ ATION 11/29/2024 [facility] DATE CREATED AUTHOR AUTHOR'S ORGANIZ ATION 12/10/2024 [facility] EPIC Patient Care team informatio n (unrecognized section and content) Shellacker Relationship Specialty Start Date End Date Staci White MD [address] [place] [address] PCP - General Internal Medicine 11/29/22 Shellacker Relationship Specialty Start Date End Date Staci White MD [address] [place] [id number] PCP - General Internal Medicine 11/29/22 Shellacker Relationship Specialty Start Date End Date Staci White MD [address] [place] [address] PCP - General Internal Medicine 11/29/22 Shellacker Relationship Specialty Start Date End [place] [address] Attending Provider Medical Clinical Genetics 05/14/24 Shellacker Relationship Specialty Start Date End Date Staci Wihte MD [address] [place] [id number] PCP - General Internal Medicine 11/29/22 Shellacker Relationship Specialty Start Date End Date Staci White MD [address] [place] [id number] PCP - General Internal Medicine 11/29/22 Shellacker Relationship Specialty Start Date End Date Staci White MD [address] [address] PCP - General Internal Medicine 11/29/22 Shellacker Relationship Specialty Start Date End Date Staci White MD [address] [place] [address] PCP - General Internal Medicine 11/29/22 Shellacker Relationship Specialty Start Date End Date Staci White MD PCP - General Internal Medicine 04/07/21 Shellacker Relationship Specialty Start Date End Date Staci White MD [address] [place] [address] PCP - General Internal Medicine 11/29/22 Shellacker Relationship Specialty Start Date End Date Staci White MD PCP - General Internal Medicine 04/07/21 Shellacker Relationship Specialty Start Date End Date Staci White MD PCP - General Internal Medicine 04/07/21 Shellacker Relationship Specialty Start Date End Date Staci White MD [address] [place] [address] PCP - General Internal Medicine 11/29/22 Reason [...] BE BASED ON THE PRIMARY CLINICAL RECORDS. [facility] provides no warranty or guarantee of the accuracy or completeness of information in this document.
[2024-12-12 10:20] LABS: Glucose 1 Hour 178 mg/dL (<180)
[2024-12-12 11:05] LABS: Glucose 2 Hour 156 mg/dL (<155)
[2024-12-12 12:09] LABS: Glucose 3 Hour 103 mg/dL (<140)
== END 2024-12-12 08:21 | disposition home or self-care (01) ==
LOC: LAB 08:22
PROVIDERS: Visit Provider Physician Assistant
DX: R73.09 Other abnormal glucose (principal)
CPT/HCPCS: 36415; 82951; 82952

== ENCOUNTER 2025-02-05 12:58 | Outpatient (OUT) | payer BC, SELFPAY ==
--- NOTE | 2025-02-05 | US_ITS ---
[address] [address] Patient Name: YANA PAYNE MRN: [id number] date: 2000 Sex: F Assigned Patient Location: Current Patient Location: Accession/Order Number: [id number] Exam Date: 02/05/2025 13:02 Report Date: 02/05/2025 19:47 At the request of: SHAUNA NAIR DO Procedure: US OB BPP w non-stress Ultrasound biophysical profile HISTORY: Thyroid disease Adequate breathing movement, gross body movement, tone and amniotic fluid volume for total score of 8 out of 8. The amniotic fluid index is 16.0cm within normal limits. The heart rate 155 bpm. US/US OB BPP w non-stress IMPRESSION: Adequate ultrasound biophysical profile Impression dictated by: Panfilo Saul M.D. 02/05/2025 7:47 PM Dictation Location: [place] [address] Electronically authenticated by: [id number] Y Date: 02/05/2025 19:47
--- OUTSIDE RECORDS SUMMARY | 2025-02-05 13:04 | XMS_ITS | CCD ---
Author Organization [facility] Care Team Providers Care Risk Control Consultant Name Role Phone JOANNA, DR VILLATORO [...] Unavailable Staci White MD Primary Care Provider [phone] Carmita Jurado MD Unavailable CARMITA JURADO Referring [...] Provider UnavailStaci Kirk MD Primary Care Provider [phone] SANTOSH MARSHALL Referring Unavailable STACI WHITE Primary Care Unavailable JACKLYN CAMPOS Attending Unavailable SANTOSH MARSHALL Referring Unavailable STACI WHITE Primary Care Unavailable SANTOSH MARSHALL Referring Unavailable STACI WHITE Primary Care Unavailable SANTOSH MARSHALL Referring Unavailable STACI WHITE Primary Care Unavailable SANTOSH MARSHALL Referring Unavailable STACI WHITE Primary Care Unavailable Staci White MD Primary Care Provider SANTOSH MARSHALL Attending Unavailable ERUM GUIDRY Attending Unavailable SANTOSH MARSHALL Attending Unavailable ERUM GUIDRY Attending Unavailable SANTOSH MARSHALL Attending Unavailable SANTOSH MARSHALL Attending Unavailable SANTOSH MARSHALL Attending Unavailable Medications Current Medications MedicationDrug Class(es)DatesSig (Normalized)Sig (Original)acetaminophen 500 mg oral tablet (3 sources)Start: 83-84-5318hsav 2 tablets by mouth every eight hours as needed for painacetaminophen (TYLENOL EXTRA STRENGTH) 500 mg tablet Take 2 tablets (1,000 mg total) by mouth every8 (eight) hours as needed for pain. 30 tablet 06/01/2021 Activeaspirin 81 mg delayed release oral tablet (3 sources)Platelet Aggregation Inhibitor, Nonsteroidal Anti-inflammatory Drug take 1 tablet by mouth in the morningaspirin 81 mg Take 1 tablet (81 mg total) by mouth in the morning. Activecephalexin 500 mg oral capsule (2 sources)Cephalosporin AntibacterialStart: 03-09-2023 End: 98-51-1654tsaw 1 capsule by mouth four times dailyKeflex 500 mg Cap 500 mg = 1 cap(s), Oral, QID, X 7 day(s), # 28 cap(s), Refills(s) 0, [facility]: [email or web address], 166, cm, 03/09/23 7:33:00 EST, Height/Length Dosing, 58.7, kg, 03/09/23 7:33:00 EST, Weight Dosing Start Date: 03/09/23 Stop Date: 03/16/23 Status: OrderedColace (3 sources)Start: 24-92-0800Ekshus Refills(s) 0 Start Date: 11/30/22 Status: OrderedStart: 06-01-2021 End: 97-76-2078bgob 1 capsule by mouth in the morning, then take 1 capsule by mouth at bedtimedocusate sodium (COLACE) 100 mg capsule Take 1 capsule (100 mg total) by mouth in the morning and 1capsule (100 mg total) before bedtime. 10 capsule 06/01/2021 11/05/2024 Discontinued (Therapy completed)Flonase (3 sources)CorticosteroidStart: 96-05-3162Ewogjda Nasal, Daily, Refill(s) 0 Start Date: 09/10/18 Status: OrderedFREESTYLE LITE METER kit (3 sources)Start: 82-47-7925FNLFNPGVR LITE METER kit See Admin Instructions. 03/26/2021 Activehydrocortisone acetate 0.025 mg/mg / lidocaine hydrochloride 0.03 mg/mg rectal gel (2 sources)Antiarrhythmic, Corticosteroid, Amide Local AnestheticStart: 87-81-0493muuzmnnqwelvrv-lidocaine 2.5%-3% rectal gel with applicator 1 carmen, Rectal, BID, 60 EA, Refill(s) 1,[facility] #[id number], 166, cm, 11/11/22 9:28:00 EDT, Height/Length Dosing, 59.4, kg, 11/11/22 9:28:00 EDT, Weight Dosing Start Date: 11/19/22 Status: OrderedStart: 42-69-4583qqtkvosxcxqgsl-lidocaine 2.5%-3% rectal gel with applicator 1 carmen, Rectal, BID, 60 EA, Refill(s) 1,[facility] ([email or web address], 166, cm, 11/11/22 9:28:00 EDT, Height/Length Dosing, 59.4, kg, 11/11/22 9:28:00 EDT, Weight Dosing Start Date: 11/11/22 Status: Orderedlevothyroxine sodium 0.125 mg oral tablet (20 sources)l-ThyroxineStart: 09-17-2024 End: 15-57-9693wxph 1 tablet by mouth before mealtimelevothyroxine (Synthroid) 125 MCG tablet Indications: Thyroid disease Take 1 tablet (125 mcg) by mouth in the morning. Take before meals. 30 tablet 11 09/17/2024 09/17/2025 ActiveStart: 08-22-2024 End: 54-66-2381nhxa 1 tablet by mouth before mealtimelevothyroxine (Synthroid) 25 MCG tablet Indications: Thyroid disease Take 1 tablet (25 mcg) by mouth in the morning. Take before meals. 30 tablet 11 08/22/2024 10/15/2024 Discontinued Start: 75-70-8114rnqq 1 tablet by mouth once dailySynthroid 100 mcg Tab 100 mcg = 1 tab(s), Oral, Daily, # 90 tab(s), Refills(s) 0, [facility]acy: [email or web address] #[facility], 166, cm, 08/08/23 15:44:00 EDT, Height/Length Dosing, 56.1, kg, 08/08/23 15:51:00 EDT, Weight Dosing Start Date: 06/19/24 Status: Ordered Quantity: 90.0 Unit: tab(s) Repeat number: 1Start: 06-19-2024 End: 39-92-0424tspi 1 tablet by mouth once dailylevothyroxine (Synthroid, Levoxyl) 100 MCG tablet Take 100 mcg by mouth Daily 06/19/2024 10/15/2024 DiscontinuedStart: 21-90-0461tcoi 1 tablet by mouth once dailySynthroid 100 mcg Tab 100 mcg = 1 tab(s), Oral, Daily, # 90 tab(s), Refills(s) 1, [facility]: [email or web address] #[facility], 166, cm, 05/16/23 14:25:00 EST, Height/Length Dosing, 56.7, kg, 05/16/23 14:25:00 EST, Weight Dosing Start Date: 05/16/23 Status: OrderedStart: 61-30-2519xrin 1 tablet by mouth once dailySynthroid 112 mcg Tab 112 mcg = 1 tab(s), Oral, Daily, # 60 tab(s), Refills(s) 0, [facility]: [email or web address] #[facility], 166, cm, 11/30/22 12:12:00 EDT, Height/Length Dosing, 58.8, kg, 11/30/22 12:12:00 EDT, Weight Dosing Start Date: 02/07/23 Status: OrderedStart: 55-43-1458qthn 1 tablet by mouth once dailySynthroid 112 mcg Tab 112 mcg = 1 tab(s), Oral, Daily, # 60 tab(s), Refills(s) 0, [facility]: [email or web address] #[facility], 166, cm, 10/08/22 15:10:00 EDT, Height/Length Dosing, 57.8, kg, 10/08/22 15:10:00 EDT, Weight Dosing Start Date: 10/08/22 Status: OrderedStart: 10-08-2022 End: 82-28-2643ygou 1 tablet by mouth in the morninglevothyroxine (Synthroid, Levoxyl) 112 MCG tablet Take 112 mcg by mouth in the morning. 10/08/2022 0 08/17/2024 DiscontinuedStart: 98-34-9216xmur 1 tablet by mouth once daily levothyroxine 125 mcg (0.125 mg) Tab 125 mcg = 1 tab(s), Oral, Daily, # 90 tab(s), Refills(s) 3, [facility]: [email or web address] #[facility], 166, cm, 05/03/22 14:21:00 EST, Height/Length Dosing, 61.2, kg, 05/03/22 14:21:00 EST, Weight Dosing Start Date: 05/03/22 Status: Orderedlevothyroxine (SYNTHROID, LEVOTHROID) 100 MCG tablet Take 125 mcg by mouth in the morning. Activeloratadine 10 mg oral tablet (13 sources)Start: 15-75-2650rkaw 1 tablet by mouth once dailyClaritin 10 mg Tab 10 mg, Oral, Daily, # 10 tab(s), Refills(s) 0, [facility]: [email or web address] #[facility], 166, cm, 12/05/19 13:03:00 EDT, Height/Length Dosing, 61.6, kg, 12/05/19 13:03:00 EDT, Weight Dosing Start Date: 12/05/19 Status: Ordered Quantity: 10.0 Unit: tab(s) Repeat number: 1magnesium oxide 400 mg oral tablet (5 sources)Start: 08-17-2024 End: 23-88-6059cvvu 1 tablet by mouth once dailymagnesium oxide (Mag-Ox) 400 MG tablet Indications: Nonintractable headache, unspecified chronicitypattern, unspecified headache type Take 1 tablet (400 mg) by mouth Daily 30 tablet 6 08/17/2024 09/16/2024 Activephenazopyridine hydrochloride 200 mg oral tablet (4 sources)Start: 03-09-2023 End: 03-30-3141zzwg 1 tablet by mouth three times dailyPyridium 200 mg Tab 200 mg = 1 tab(s), Oral, TID, X 3 day(s), # 9 tab(s), Refills(s) 0, Pharmacy: [facility] #[facility], 166, cm, 03/09/23 7:33:00 EST, Height/Length Dosing, 58.7, kg, 03/09/23 7:33:00 EST, Weight Dosing Start Date: 03/09/23 Stop Date: 03/12/23 Status: OrderedStart: 02-21-2023 End: 16-24-5165eesj 1 tablet by mouth three times dailyPyridium 200 mg Tab 200 mg = 1 tab(s), Oral, TID, X 3 day(s), # 9 tab(s), Refills(s) 0, Pharmacy: [facility] #[facility], 166, cm, 02/21/23 13:06:00 EST, Height/Length Dosing, 58.6, kg, 02/21/23 13:06:00 EST, Weight Dosing Start Date: 02/21/23 Stop Date: 02/24/23 Status: OrderedPNV no.95/ferrous fum/folic ac ( ORAL) (3 sources)PNV no.95/ferrous fum/folic ac ( ORAL) Take by mouth in the morning. ActivePNV no.95/ferrous fum/folic ac ( ORAL) Take by mouth daily. Activepolyethylene glycol 3350 530023 mg / potassium chloride 1480 mg / sodium bicarbonate 5720 mg / sodium chloride 52333 mg powder for oral solution (11 sources)Osmotic LaxativeStart: 91-91-7743DmHMGDWP Paige oral powder for reconstitution See Instructions, 1 EA, Refill(s) 0, Prior to colonoscopy., [facility] #[id number], 166, cm, 11/30/22 12:12:00 EDT, Height/Length Dosing, 58.8, kg, 11/30/22 12:12:00 EDT, Weight Dosing Start Date: 11/30/22 Status: Ordered Quantity: 1.0 Unit: EA Repeat number: 1Prenatal MV-Min-Fe Fum-FA-DHA ( 1 PO) (20 sources) MV-Min-Fe Fum-FA-DHA ( 1 PO) Take by mouth Active Completed/Discontinued Medications MedicationDrug Class(es)DatesSig (Normalized)Sig (Original)ibuprofen 800 mg oral tablet (2 sources)Nonsteroidal Anti-inflammatory DrugStart: 06-01-2021 End: 09-00-9607rctz 1 tablet by mouth every eight hours as neededibuprofen (ADVIL,MOTRIN) 800 mg tablet Take 1 tablet (800 mg total) by mouth every 8 (eight) hours as needed (cramping). 30 tablet 06/01/2021 11/05/2024 Discontinued (Therapy completed)nitrofurantoin, macrocrystals 25 mg / nitrofurantoin, monohydrate 75 mg oral capsule (6 sources)Nitrofuran AntibacterialStart: 09-11-2024 End: 33-01-8588joah 1 capsule by mouth in the morningnitrofurantoin, macrocrystal-monohydrate, (Macrobid) 100 MG capsule Indications: Urinary tract infection without hematuria, site unspecified Take 1 capsule (100 mg) by mouth in the morning and 1 capsule (100 mg) before bedtime. Do all this for 7 days. 14 capsule 09/11/2024 09/18/2024 ExpiredStart: 02-21-2023 End: 47-86-0937odxd 1 capsule by mouth every twelve hoursMacrobid 100 mg Cap 100 mg = 1 cap(s), Oral, q12hr, X 5 day(s), # 10 cap(s), Refills(s) 0, [facility]: [email or web address], 166, cm, 02/21/23 13:06:00 EST, Height/Length Dosing, 58.6, kg, 02/21/23 13:06:00 EST, Weight Dosing Start Date: 02/21/23 Stop Date: 02/26/23 Status: Orderedprogesterone (FIRST-PROGESTERONE VGS) 200 mg suppository (2 sources)Start: 03-26-2021 End: 94-14-1244jlabwgclkhzf (FIRST-PROGESTERONE VGS) 200 mg suppository Indications: Hypothyroid [...] nightly. 30 each 03/26/2021 11/05/2024 Discontinued (Therapy completed)Start: 03-26-2021 progesterone (FIRST-PROGESTERONE VGS) 200 mg suppository [...] each 03/26/2021 Active Problems Active Problems Problem ClassificationProblemDateDocumented DateEpisodic/ChronicAbdominal pain (13 sources)Abdominal qtar16-47-6433ZelkntmrTddxxbksv infection; unspecified site (1 source)Infection due to Escherichia coli; Translations: [Unspecified Escherichia coli [E. coli] as the cause of diseases classified elsewhere]Onset: 16-86-2425MecbadhsTdzssubf or abnormal glucose tolerance complicating ; childbirth; or the puerperium (18 sources)History of gestational diabetes mellitus; Translations: [Gestational diabetes mellitus]Onset: 05-19-2021 Resolved: 666551-42-9441HlyyvnhvPhihlacwviwzf symptoms and ill-defined conditions (4 sources)Dysuria; Translations: [Dysuria]Onset: 98-21-5181HdrukehsWcozzzqt; including migraine (13 sources)Migraine without kmll96-89-2825NfzuxqdMnsncqym; including migraine (6 sources)Headache; Translations: [Nonintractable headache, unspecified chronicity pattern, unspecified headache type]33-56-4790OrezvhnxLjsglkorqh during ; abruptio placenta; placenta previa (4 sources)Low lying placenta; Translations: [Low lying placenta NOS or without hemorrhage, unspecified trimester]Onset: 613008-48-9105WyazoohgIebwxqkgtin (15 sources)Hemorrhoids; Translations: [Unspecified hemorrhoids]Onset: 82-81-5636MsllrfqfTvqbhfyfkygnk and screening for infectious disease (4 sources)Encounter for screening for human papillomavirus (HPV); Translations: [Contact with and (suspected)exposure to infections with a predominantly sexual mode of transmission]Onset: 039249-64-3239BthwughdGypldceuogkk; infection of eye (except that caused by tuberculosis or sexually transmitteddisease) (4 sources)Hbypzrzus99-43-2813SaqyvmhgPoghhdxmq disorders (15 sources)Dysmenorrhea; Translations: [Dysmenorrhea, unspecified]Onset: 837123-19-8175TnvnaohFslqc complications of (5 sources)Endocrine, nutritional and metabolic diseases complicating , unspecified trimester; Translations: [ENDOCRN NUTR MET DZ COMP PG UNS TRI]Onset: 88-36-3482DqwdmnzsSecmp complications of (2 sources)Thyroid disease in mother complicating , childbirth AND/OR puerperium; Translations: [Endocrine, nutritional and metabolic diseases complicating , unspecified trimester]76-89-7725WktwxmfxVmtjk complications of (8 sources)Hypothyroidism in ; Translations: [Endocrine, nutritional and metabolic diseases complicating , unspecified trimester]Onset: 126297-28-5359FnpmzvttFsnci complications of (3 sources)History of gynecological disorder; Translations: [Supervision of with other poor reproductive or obstetric history, unspecified trimester]Onset: 428425-76-6294VqhgkuaaXpeyl complications of (2 sources) size does not accord with dates; Translations: [Uterine size- date discrepancy, second trimester]46-84-5943ObgxtmeoVvido endocrine disorders (4 sources)Fipkhftglfcx52-00-8210AantprfRzxqb eye disorders (4 sources)Eye vibellf39-43-5374FivjezftRpjnc female genital disorders (4 sources)Lesion of -85-0624BvkxgkkkAgouk female genital disorders (1 source)Noninflammatory disorder of vulva; Translations: [Other specified noninflammatory disorders of vulva and perineum]Onset: 39-80-5736OkcelxxxVczmd female genital disorders (2 sources)Vaginal discharge; Translations: [Other specified noninflammatory disorders of vagina]56-46-9210TxafkpmdBmqjl gastrointestinal disorders (4 sources)Lmwnwzglxwto46-76-6670FkumphnwSkapj gastrointestinal disorders (1 source)Digestive system finding; Translations: [Other specified symptoms and signs involving the digestivesystem and abdomen]Onset: 59-38-9949ZlymuwpeHbkwt gastrointestinal disorders (1 source)Constipation, unspecified; Translations: [Constipation, unspecified] Onset: 07-44-5784DdkzknycQioum inflammatory condition of skin (4 sources)Pruritus ani; Translations: [Pruritus ani]Onset: 05-62-4865Ggbsyhoh Other lower respiratory disease (13 sources)H/O: respiratory ssnsmai17-47-3975RpwjjkijRtddn nutritional; endocrine; and metabolic disorders (12 sources)Weight yced21-73-8383XghcxtpxYzalo nutritional; endocrine; and metabolic disorders (1 source)Abnormal weight loss; Translations: [Abnormal weight loss]Onset: 92-57-2416PvrtasrtTfvzq and delivery including normal (20 sources)Encounter for supervision of normal first , first trimester; Translations: [Encounter for supervision of normal , unspecified, unspecified trimester]Onset: 36-07-8551KdstvwlbWntwp screening for suspected conditions (not mental disorders or infectious disease) (13 sources)Encounter for screening for malignant neoplasm of cervix; Translations: [Encounter for screening, unspecified]Onset: 12-09-2020 EpisodicResidual codes; unclassified (3 sources)Body mass index 20-24 - normal; Translations: [Body mass index (BMI) 21.0-21.9, adult]Onset: 64-72-2702ZjnksbnnFdrmtfje codes; unclassified (1 source)Family history of malignant neoplasm of digestive organ; Translations: [Family history of malignantneoplasm of digestive organs]Onset: 11-30-2022 EpisodicResidual codes; unclassified (11 sources)Family history of cancer of aseog99-82-6320QfrppndxAytalqol codes; unclassified (4 sources)Family history of autism; Translations: [Family history of other mental and behavioral disorders]Onset: 611720-54-4382FkwhnmpzAvltcntk codes; unclassified (2 sources)Gestation period, 13 weeks; Translations: [13 weeks gestation of ]44-75-1536TzryzmuwOqmumgyu codes; unclassified (15 sources)History of previous intrauterine growth restricted ; Translations: [Personal history of other complications of , childbirth and the puerperium]Onset: 593033-28-8580ZtllvqoaPenjoofi codes; unclassified (2 sources)Gestation period, 17 weeks; Translations: [17 weeks gestation of ]57-95-5998IdhijbitSbhsdxal codes; unclassified (1 source)Gestation period, 20 weeks; Translations: [20 weeks gestation of ]00-22-2944HuixennrObdfnvqb codes; unclassified (7 sources)History of premature rupture of membranes; Translations: [Personal history of other complications of , childbirth and the puerperium]Onset: 062012-08-7347AkegevcmEkgzqnpp codes; unclassified (2 sources)Gestation period, 21 weeks; Translations: [21 weeks gestation of ]00-14-9293UglxdffrZevzdgxo codes; unclassified (2 sources)Personal history of other complications of , childbirth and the puerperium; Translations: [Personal history of other complications of , childbirth and the puerperium]Onset: 52-50-4162SdkuvaudIbxjyzck codes; unclassified (1 source)20 weeks gestation of ; Translations: [20 weeks gestation of ]Onset: 39-69-9071SqhntiwqNovzjjyv codes; unclassified (2 sources)Gestation period, 25 weeks; Translations: [25 weeks gestation of ]35-97-7070KwqyxjmbBcofnxnw codes; unclassified (2 sources)Gestation period, 28 weeks; Translations: [28 weeks gestation of ]12-60-4611ArgbjarvKajbrkgq codes; unclassified (2 sources)Gestation period, 30 weeks; Translations: [30 weeks gestation of ]50-72-8487RmsoqxffYvvxxuhf codes; unclassified (2 sources)Gestation period, 32 weeks; Translations: [32 weeks gestation of ]32-47-9971GiphwrofMrxydao disorders (20 sources)Hypothyroidism, unspecified; Translations: [Hypothyroidism]Onset: 30-95-5528JeatdswJdqzhcf disorders (12 sources)Disorder of thyroid, unspecified; Translations: [Disorder of thyroid gland]Onset: 91-45-7236GwdxddesVcvvjywsaxom (13 sources)Body mass index 20-24 - ideqmv52-47-0316Ylkpirkjucth (13 sources)Ynz-vgdfev41-76aoeobc59-92-2775Rcumqvbhqisr (5 sources)Pain of knee -65-9421Lpmwldvfohys (8 sources)Patient encounter xlwasx84-21-0970Wearfegklutu (3 sources)Rectum yqlzcli68-96-7884Ioflmsqxbevt (8 sources)Finding of sensation of hmmbkbu61-46-8325Cquuukgokfzo (1 source)Hx previous FGROnset: 32-86-4569Nasglpg tract infections (13 sources)Acute cystitis; Translations: [Acute cystitis without hematuria] Onset: 99-39-5594Zhtdirin Past or Other Problems Problem ClassificationProblemDateDocumented DateEpisodic/ChronicEarly or threatened labor (6 sources)Premature uterine contraction; Translations: [False labor before 37 completed weeks of gestation, third trimester]Onset: 04-21-2021 Resolved: 615449-12-2661BhvkwfyuSexqh complications of (3 sources)Disorder of ; Translations: [Maternal care for other known or suspected poor growth,unspecified trimester, not applicable or unspecified]Onset: 03-03-2021 Resolved: 501477-20-2400JkacdxfaUthyz complications of (3 sources)Short cervical length in ; Translations: [Cervical shortening, third trimester]Onset: 05-19-2021 Resolved: 539322-58-8970WsozkshkAkqhq complications of (2 sources)Endocrine, nutritional and metabolic diseases complicating , second trimester; Translations: [Endocrine, nutritional and metabolic diseases complicating , second trimester]Onset: 95-14-4268XhxvsoppActxr female genital disorders (4 sources)Other specified noninflammatory disorders of vagina; Translations: [OTH SPEC NONINFLAMMATORY D/O VAGINA]Onset: 78-38-3113TqcjmfmqMrrkzdoshstxdc and other problems of amniotic cavity (3 sources) premature rupture of membranes ; Translations: [ premature rupture of membranes, unspecified as to length of time between rupture and onset of labor, unspecified trimester]Onset: 05-30-2021 Resolved: 616682-35-3748Eqbepzuy Results Test NameValueInterpretationReference RangeFacilityUrinalysis macro (dipstick) panel (U)on 08-82-7564Gqnjreyjl, UANegativeNegative - 4(70) +++ mg/dLNOMS HealthcareBlood, UANegativeNegative - 50 Cedric/mcLNOMS HealthcareClarity, UAClear NOMS HealthcareColor, UAYellowNOMS HealthcareGlucose, UANegativeNegative - 1999(110) ++++ mg/dLNOMS HealthcareInterpretation and review of laboratory resultsNormalNOMS HealthcareKetones, UANegativeNegative - 160(16) ++++ mg/dLNOMS HealthcareLeukocytes, UANegativeNegative - 500+++ Ayana/mcLNOMS HealthcareNitrite, UANegativeNegative - PositiveNOMS HealthcarepH, UA6.05 - 9N[facility] Healthcare Protein, UANegativeNegative - 1999(20) ++++ mg/dLNOMS HealthcareSpec Grav, UA 1.0201 - 1.03NOMS HealthcareUrobilinogen, UA1.00.2 - 12 mg/dLNOMS HealthcareNOMS HealthcareUrinalysis macro (dipstick) panel (U)on 02-40-4692Gyiesartq, UA NegativeNegative - 4(70) +++ mg/dLNOMS HealthcareBlood, UANegativeNegative - 50 Cedric/mcLNOMS HealthcareClarity, UAClearNOMS HealthcareColor, UAYellowNOMS HealthcareGlucose, UANegativeNegative - 1999(110) ++++ mg/dLNOMS Healthcare Interpretation and review of laboratory resultsNormalNOMS HealthcareKetones, UA NegativeNegative - 160(16) ++++ mg/dLNOMS HealthcareLeukocytes, UANegative Negative - 500+++ Ayana/mcLNOMS HealthcareNitrite, UANegativeNegative - Positive NOMS HealthcarepH, UA6.55 - 9NOMS HealthcareProtein, UANegativeNegative - 1999(20) ++++ mg/dLNOMS HealthcareSpec Grav, UA1.0101 - 1.03N[facility] Healthcare Urobilinogen, UA0.20.2 - 12 mg/dLNONC HealthcareNOMS HealthcareUS OB FOLLOW UP TRANSABDOMINAL APPROACHon 23-33-2937JO OB FOLLOW UP TRANSABDOMINAL APPROACH FINDINGS: A single, live intrauterine is present with normal cardiac rate of 159 beats per minute. Normal activity and amniotic fluid volume. Amniotic fluid index is 14.0 cm. Morphology is grossly normal. The current sonographic age is 27 weeks and 5days, based on the following measurements: BPD 6.5 cm ( 26 weeks, 1 days) Head Circumference 25.7cm (27 weeks, 6 days) Abdominal Circumference 24.5cm (28 weeks,5 days) Femur Length 5.3cm (27 weeks, 1 days) Presentation Cephalic Weight (g) by Percentile 36.7 % * These measurements result in an estimated date of delivery of March 27, 2025 The current estimatedfetal weight is 1203 grams ( 3 pound, 10 ounces). IMPRESSION: 1. Single, live intrauterine , current sonographic age of 27 weeks and 5 days, with an estimated date of delivery of March 27, 2025. 2. Prior examination of November 17, 2024 estimated date of delivery was March 24, 2025. * Estimated Weight (g) by Percentile is based upon an accurate estimated age based on last menstrual period. TRANSCRIBED BY: ELECTRONICALLY SIGNED BY: Moon SpencerNot AvailableComment on above:Order Comment: US OB SCAN FOR GROWTH Estimated Date of Delivery: 03/23/25 Gestational Age as of 12/10/2024: 11s5sLnxmpnbrez macro (dipstick) panel (U)on 22-77-1023Lvvwwirpu, UANegativeNegative - 4(70) +++ mg/dLNOMS HealthcareBlood, UANegativeNegative - 50 Cedric/mcLNOMS HealthcareClarity, UAClearNOMS Healthcare Color, UAYellowNOMS HealthcareGlucose, UANegativeNegative - 2000(110) ++++ mg/dL NOMS HealthcareInterpretation and review of laboratory resultsNormalNONC HealthcareKetones, UANegativeNegative - 160(16) ++++ mg/dLNONC Healthcare Leukocytes, UANegativeNegative - 500+++ Ayana/mcLNOMS HealthcareNitrite, UA NegativeNegative - PositiveNOMS HealthcarepH, UA7.05 - 9NOMS HealthcareProtein, UANegativeNegative - 2000(20) ++++ mg/dLNONC HealthcareSpec Grav, UA1.0101 - 1.03NONC HealthcareUrobilinogen, UA0.20.2 - 12 mg/dLNOResearch Psychiatric CenterNONC HealthcareGLUCOSE TOLERANCE 3 HOURon 39-19-7543BKGAZDX TOLERANCE 3 HOURHighmg/dL NOM HealthcareComment on above:GLU FAST 89 (<95) Col: 12/12/24 0842 GLU 1HR 178 (<180) Col: 12/12/24 0949 GLU 2HR 156H (<155) Col: 12/12/24 1041 GLU 3HR 103 (<140) Col: 12/12/24 1147 Interpretation and review of laboratory resultsAbnormalNONC HealthcareCLINISYNC NOM HealthcareALL CBC WITH AUTO DIFFon 86-91-1639NMJSZRPKF ABSOLUTE ISHX6BOIXResearch Psychiatric CenterBasophils/100 WBC (Bld)0.3 %0.2 - 2.0 %NOMS HealthcareEosinophils/100 WBC (Bld)0.5 %Low0.9 - 7.0 %[facility] HospitalErythrocyte distribution width (RBC) [Ratio]12.4 %11.0 - 15.0 %NOMSaint Louis University HospitalHematocrit (Bld) [Volume fraction]32.4 %Low36.0 - 48.0 %[facility] HospitalHemoglobin (Bld) [Mass/Vol]10.8 g/dLLow12.0 - 16.0 g/dLNOResearch Psychiatric CenterIMMATURE GRANULOCYTES ABS AUTO0.03NOResearch Psychiatric Center Immature granulocytes/100 WBC (Bld)0.3 %0.0 - 0.5 %[facility] HospitalInterpretation and review of laboratory resultsAbnormalBates County Memorial HospitalLYMPHOCYTES ABSOLUTE AUTO1.3NOResearch Psychiatric CenterLymphocytes/100 WBC (Bld)14.4 %Low20.5 - 60.0 %[facility] HospitalH (RBC) [Entitic mass]33.2 pg26.7 - 34.0 pgNOResearch Psychiatric CenterMCHC (RBC) [Mass/Vol]33.3 g/dL29.9 - 35.2 g/dLNONC HealthcareMCV (RBC) [Entitic vol]99.7 fL High81.0 - 99.0 fLNONC HealthcareMONOCYTES ABSOLUTE AUTO0.4N[facility]S Healthcare Monocytes/100 WBC (Bld)4.6 %1.7 - 12.0 %NOMS HealthcareNEUTROPHILS ABSOLUTE AUTO 7HighNONC HealthcareNeutrophils/100 WBC (Bld)79.9 %High43.0 - 75.0 %NOMS HealthcarePlatelet mean volume (Bld) [Entitic vol]10.5 fL9.5 - 13.5 fLNONC HealthcareTBH EO #0NOMS HealthcareTBH [id number] HealthcareTBH RBC3.25LowNOMS HealthcareTBH WBC8.8NONC HealthcareCLINISYNCNOMS HealthcareUrinalysis macro (dipstick) panel (U)on 51-37-9038Sgliborzp, UANegativeNegative - 4(70) +++ mg/dL NOMS HealthcareBlood, UANegativeNegative - 50 Cedric/mcLNOMS HealthcareClarity, UA ClearNOMS HealthcareColor, UAYellowNOMS HealthcareGlucose, UANegativeNegative - 1999(110) ++++ mg/dLNOMS HealthcareInterpretation and review of laboratory resultsNormalNONC HealthcareKetones, UANegativeNegative - 160(16) ++++ mg/dLNOMS HealthcareLeukocytes, UANegativeNegative - 500+++ Ayana/mcLNOMS HealthcareNitrite, UANegativeNegative - PositiveNOMS HealthcarepH, UA75 - 9NOMS HealthcareProtein, UANegativeNegative - 2000(20) ++++ mg/dLNOMS HealthcareSpec Grav, UA1.011 - 1.03 NOMS HealthcareUrobilinogen, UA0.20.2 - 12 mg/dLNONC HealthcareNONC Healthcare Urinalysis macro (dipstick) panel (U)on 35-47-4063Okaytisxi, UANegativeNegative - 4(70) +++ mg/dLNOMS HealthcareBlood, UANegativeNegative - 50 Cedric/mcLNOMS HealthcareClarity, UAClearNOMS HealthcareColor, UAYellowNOMS HealthcareGlucose, UAPositiveNegative - 1999(110) ++++ mg/dLNONC HealthcareInterpretation and review of laboratory resultsAbnormalNOMS HealthcareKetones, UANegativeNegative - 160(16) ++++ mg/dLNONC HealthcareLeukocytes, UANegativeNegative - 500+++ Ayana/mcL NOM HealthcareNitrite, UANegativeNegative - PositiveNOMS HealthcarepH, UA65 - 9 NOMS HealthcareProtein, UANegativeNegative - 1999(20) ++++ mg/dLNONC Healthcare Spec Grav, UA1.0151 - 1.03NONC HealthcareUrobilinogen, UA1.00.2 - 12 mg/dLNONC HealthcareNONC HealthcareALL THYROID STIM HORMONEon 23-00-9933KJT Qn2.68 m[IU]/L [facility] HospitalCLINISYNCNOMS HealthcareAFP, SERUM, OPEN SPINA BIFIDAon 68-80-1798ODR MOM0.82.[facility] HospitalAFP VALUE34.7 ng/mL.[facility] HealthcareCOMMENT: Comment.[facility] HospitalComment on above:Alie Moon, Ph.D., [facility] Director References: Available Upon Request. Multiples Of Median Cutoffs For AFP Elevations Murphy 2.5 Black 2.8 IDD 2.0 Twins 4.5 Abbreviation Definitions IDD - Insulin Dep Diabetes OSBR - Open Spina Bifida Risk For further inquiries contact [employer] at [phone]. This test was developed and its performance characteristics determined by [employer]. It has not been cleared or approved by the Food and Drug Administration. Performed at: [facility] [address] [place], [place] [id number] Machine Grinder: Pily Meraz [facility], Phone: [phone] GEST. AGE ON COLLECTION DATE17.3. weeksNONC HealthcareGESTAT. AGE BASED ONLMP. [facility] HealthcareComment on above:Recalculations are not recommended when gestational dating by LMP and ultrasound are within 10 days. INSULIN DEP DIABETESNo.[facility] HealthcareINTERPRETATIONComment.[facility] Comment on above:Interpretation: Screen Negative This result is screen negative [...] Customer Services to discuss available options. The [employer] [employer] recommends amniocentesis be offered to women age 35 and older. MATERNAL AGE AT EDD27.1. yrNONC HealthcareMULTIPLE GESTATIONNo.[facility] Healthcare OSBR RISK 1 [id number].[facility] HealthcareRACECaucasian.[facility] HealthcareRESULTSReport. [facility] HealthcareTEST RESULTS:Negative.[facility] HospitalCdzfwlwtngFFPCMV443. lbsNONC HealthcarePREGNANCY N N LMP [id number] 2 17 N 1 Y 134 N N N N N White/ CLINISYNCNOResearch Psychiatric CenterUrinalysis macro (dipstick) panel (U)on 10-15-2024 Bilirubin, UANegativeNegative - 4(70) +++ mg/dLNONC HealthcareBlood, UANegative Negative - 50 Cedric/mcLNONC HealthcareClarity, UAClearNONC HealthcareColor, UA YellowNOMS HealthcareGlucose, UANegativeNegative - 2000(110) ++++ mg/dLACADIA HEALTH[facility]ARE HealthcareInterpretation and review of laboratory resultsNormalB[facility] County Memorial Hospital Ketones, UANegativeNegative - 160(16) ++++ mg/dLACADIA HEALTH[facility]ARE HealthcareLeukocytes, UA NegativeNegative - 500+++ Ayana/mcLNONC HealthcareNitrite, UANegativeNegative - PositiveNONC HealthcarepH, UA65 - 9NONC HealthcareProtein, UANegativeNegative - 2000(20) ++++ mg/dLNONC HealthcareSpec Grav, UA1.0151 - 1.03NONC Healthcare Urobilinogen, UA0.20.2 - 12 mg/dLMadison Medical Center HealthcareGLUCOSE 1 HOURon 81-88-0019Mgxltmp [Mass/Vol]108 mg/dLNINF - 130 mg/dLACADIA HEALTHCARE HealthcareCLINISYNC [facility] HospitalALL MISCELLANEOUS TESTon 78-88-4632BIYCZJOIPPTZB TESTCOMMENT.[facility] HealthcareComment on above:Test Ordered: [id number] Parvovirus B19, Human, IgG/IgM Parvovirus B19, IgG 0.1 index BN Reference Range: 0.0-0.8 Negative <0.9 Equivocal 0.9 - 1.1 Positive >1.1 Parvovirus B19, IgM 0.1 index Reference Range: 0.0-0.8 Negative <0.9 Equivocal 0.9 - 1.1 Positive >1.1 Performed at: [address] [id number] Machine Grinder: Darion Moon MD, Phone: [phone] Performed at: [address] [id number] Machine Grinder: Madi Maloney PhD, Phone: [phone] Parvovirus B19 (Human), IgG, IgM CLINISYNCNOMS HealthcareALL MISCELLANEOUS TESTon 61-49-7023HLZSIXMSYHDHL TEST COMMENT.NOMS HealthcareComment on above:Test Ordered: [id number] Parvovirus B19, Human, IgG/IgM Parvovirus B19, IgG 0.1 index Reference Range: 0.0-0.8 Negative <0.9 Equivocal 0.9 - 1.1 Positive >1.1 Parvovirus B19, IgM 0.1 index Reference Range: 0.0-0.8 Negative <0.9 Equivocal 0.9 - 1.1 Positive >1.1 Performed at: [address] [id number] Machine Grinder: Darion Moon MD, Phone: [phone] Performed at: [address] [id number] Machine Grinder: Madi Maloney PhD, Phone: [phone] Parvovirus B19 (Human), IgG, IgM CLINISYNCNOMS HealthcareALL CBC WITH AUTO DIFFon 81-95-0241DPJYTGJKR ABSOLUTE NJZW6VYSL HealthcareBasophils/100 WBC (Bld)0.5 %0.2 - 2.0 %[facility] Eosinophils/100 WBC (Bld)0.5 %Low0.9 - 7.0 %NOMS HealthcareErythrocyte distribution width (RBC) [Ratio]12.3 %11.0 - 15.0 %NOMS HealthcareHematocrit (Bld) [Volume fraction]38.5 %36.0 - 48.0 %NOMS HealthcareIMMATURE GRANULOCYTES ABS AUTO0.02NONC HealthcareImmature granulocytes/100 WBC (Bld)0.3 %0.0 - 0.5 % [facility] HospitalInterpretation and review of laboratory resultsAbnormalNONC HealthcareLYMPHOCYTES ABSOLUTE AUTO1.6NOMS HealthcareLymphocytes/100 WBC (Bld)21 %20.5 - 60.0 %[facility] HospitalH (RBC) [Entitic mass]33.5 pg26.7 - 34.0 pgPershing Memorial HospitalHC (RBC) [Mass/Vol]35.6 g/eCBssq58.9 - 35.2 g/dLPershing Memorial HospitalV (RBC) [Entitic vol]94.1 fL81.0 - 99.0 fLBates County Memorial HospitalMONOCYTES ABSOLUTE AUTO 0.4NOMS HealthcareMonocytes/100 WBC (Bld)5.1 %1.7 - 12.0 %[facility] NEUTROPHILS ABSOLUTE AUTO5.6NOResearch Psychiatric CenterNeutrophils/100 WBC (Bld)72.6 %43.0 - 75.0 %[facility] HospitalPlatelet mean volume (Bld) [Entitic vol]11.1 fL9.5 - 13.5 fLBates County Memorial HospitalTBH EO #0NOResearch Psychiatric CenterTBH LWZ853FFHVCass Medical Center RBC4.09Low [facility] WBC7.8B[facility] HospitalCLINISYNCCBC and differentialon 19-84-5512Bruxgmutie (Bld) [Volume fraction]39 %36 - 46 %[facility] Platelets (Bld) [#/Vol]211 10*3/uL150 - 399 10*3/uLProMedica Health SystemWBC (Bld) [#/Vol]7.8 10*3/mL3.3 - 10.0 10*3/mLMount Ascutney HospitalMedica Detwiler Memorial Hospital SystemDrug Screen, Urineon 82-80-5977Uitcycfxuug/MethamphetamineNegativeProMedica Health System BarbituratesNegativeProMedica Health SystemBenzodiazepinesNegativeProMedica Health SystemCocaine MetaboliteNegativeMount Ascutney HospitalMedica Health SystemMethadoneNegative ProMedica Health SystemOpiatesNegativeMount Ascutney HospitalMedica Health SystemOxycodoneNegative ProMedica Health SystemPhencyclidineNegativeProMedica Health SystemThc Marijuana, UrineNegativeSalem Regional Medical CenterHBV surface Ag IA Qlon 08-21-2024 Hepatitis B Surface AntigenNegativeSalem Regional Medical CenterHCV Ab IA Qlon 24-02-6607EBQ Ab Ql (S)Non-ReactiveSalem Regional Medical CenterHIV 1+2 Ab+HIV1 p24 Ag IA Qlon 45-66-7003IGU 1&2 AB/AGNon-ReactiveSalem Regional Medical CenterHemoglobin A1con 27-32-2688HlA2r (Bld) [Mass fraction]5.6 %4.0 - 6.0 %[facility] Medical CenterLaboratory - Hematology and Cell countson 01-81-5328Jsgwlhfwnu (Bld) [Mass/Vol]13.7 g/dL12.0 - 16.0 g/dLBates County Memorial HospitalNo Panel Informationon 46-38-5990XPDE HealthcareRubella IGG immune statuson 78-68-7086Jhldjkg immune IgGimmuneSalem Regional Medical CenterT. pallidum IgG+IgM IA Ql (S)Ordered By: Nadira Salazar on 62-45-9793HtkytaazYkn-ReactiveSalem Regional Medical CenterTSHon 86-25-2108Ksedtgp Stimulating (3Rd Generation) Hormone/ Tsh7.721PZanesville City HospitalType and screenon 25-61-5016Jub/Rh(D)PositiveSalem Regional Medical CenterHCG ( test) Ql (U)on 38-38-8933Aeyzdrlsjsmqgn and review of laboratory resultsAbnormalBates County Memorial HospitalPreg Test, UrPositiveNegativeMadison Medical Center HealthcareUS OB TRANSVAGINALon 93-50-4944GH OB TRANSVAGINALEXAM: US OB TRANSVAGINAL HISTORY: Dating. COMPARISON: None [...] at 20-Aug-2024 10:22:40 AM [facility] TeleradiologyNormalNot AvailableComment on above:Order Comment: US OB TRANSVAGINAL No LMP recorded.Urinalysis macro (dipstick) panel (U)on 96-68-5362Viqrbstkq, UA NegativeNegative - 4(70) +++ mg/dLNOMS HealthcareBlood, UANegativeNegative - 50 Cedric/mcLNOMS HealthcareClarity, UAClearNOMS HealthcareColor, UAYellowNOMS HealthcareGlucose, UANegativeNegative - 2000(110) ++++ mg/dLNOMS Healthcare Interpretation and review of laboratory resultsNormalNOMS HealthcareKetones, UA NegativeNegative - 160(16) ++++ mg/dLNOMS HealthcareLeukocytes, UANegative Negative - 500+++ Ayana/mcLNOMS HealthcareNitrite, UANegativeNegative - Positive NOMS HealthcarepH, UA75 - 9NOMS HealthcareProtein, UANegativeNegative - 2000(20) ++++ mg/dLNOMS HealthcareSpec Grav, UA1.0151 - 1.03NOMS HealthcareUrobilinogen, UA0.20.2 - 12 mg/dLNOMS HealthcareNOMS HealthcareAmbulatory Visit Summaryon 60-59-5379Setlcmqqxl Visit SummaryAmbulatory Visit Summary YANA CHURCH :2000 Visit Date:07/09/2024 [...] 8:40 AM EDT With: Marta Rivas Where: [facility] [address] [place] [address], [address] [place] [id number] Medications What How Much When Why Instructions [...] you for choosing us for your care. [facility] Medicine Office/Clinic Noteon 71-98-0619Dtlbig Medicine Office/Clinic NoteFapappas rehabilitation hospital for children Medicine Office/Clinic Note Chief Complaint Establish care [...] anymore, managed with tylenol Social History: Occupation: [employer] Family life: home with and daughter Diet: no restrictions Caffeine: 1 cup coffee/day Exercise: active lifestyle Alcohol use: denies Drug use: denies Smoking status: denies Health Maintenance: Routine labs: thyroid labs 06/2024, declines further labs Pap (21-64yo): 04/2023 Specialists: Roll Tube Setter: krysta Dentist: krysta OBGYN: Joanna Review of [...] other medications. Recheck TSH/T (more content not included)...[facility] Comment on above:Result Comment: Electronically Signed By: Marta Rivas\.br\Date and Time Signed: 07/09/24 08:35 EDTAmbulatory Visit Summaryon 46-07-4383Oerbphfclo Visit SummaryAmbulatory Visit Summary YANA CHURCH :2000 Visit Date:07/05/2024 [...] 8:00 AM EDT With: Marta Rivas Where: [facility] [address] [facility] [place] [address]- Medications What How Much When Why Instructions New amoxicillin-clavulanate (Augmentin 875 mg-125 mg Tab) 1 Tablets By Mouth Every 12 hours Acute sinusitis Duration: 10 Days Pickup at [facility] Unchanged levothyroxine (Synthroid 100 mcg Tab) 1 Tablets By Mouth Every day Pharmacy Information [facility]: [address] [place], [place] [id number] [phone] Allergies No Known Allergies Problems Ongoing - [...] you for choosing us for your care. [facility] Medicine Office/Clinic Noteon 93-20-9690Svsjcc Medicine Office/Clinic NoteFapappas rehabilitation hospital for children Medicine Office/Clinic Note Chief Complaint possible sinus [...] for 10 day(s), 20 tab(s), Refill(s) 0, [facility], 166, cm, 07/05/24 15:34:00 EDT, Height/Length [...] When Contact Information Julienne BARTLETT, Ham Montano, [facility], [address], [address] [phone] Additional Instructions: as scheduled with Marta Patient Education Sinus Infection, Adult, Weqw-ac-Tvhq How to Perform a Sinus Rinse, Tkaq-hx-Romv Problem List/Past Medical History Ongoing Acute sinusitis [...] Recorded poliovirus vaccine, inactivated (more content not included)...Normal [facility] HospitalComment on above:Result Comment: Electronically Signed By: Julienne BARTLETT, Ham Montano\.br\Date and Time Signed: 07/05/24 16:06 EDT CHEMISTRYOrdered By: SYSTEM SYSTEM on 86-84-4447Zrvs T4 [Mass/Vol]0.82 ng/dL Normal0.58 - 1.64 ng/dLRemisol ChemTSH Qn3.09 m[IU]/LNormal0.34 - 5.60 mcIU/mL Remisol ChemFree T4on 53-57-5198Vyys T4 [Mass/Vol]0.82 ng/dLNormal0.58-1.64 [facility] HospitalComment on above:Performed By: #### [id number] #### [facility] [address], [place] [address]ZPKms 53-09-1364DVT Qn3.09 m[IU]/LNormal0.34-5.60[facility] HospitalComment on above:Performed By: #### [id number] #### [facility] [address], [place] [address]ROP EXTRACTION AND HOLDon 22-05-9135DijzapXjrjis Puregene Reagents from QiagenInvalid Interpretation [facility] on above:Order Comment: Release to patient->AutomaticNucleic Acid Concentration 273.2 ng/uLInvalid Interpretation [facility] on above: Order Comment: Release to patient->AutomaticNucleic Acid Purity1.90Invalid Interpretation Code1.70-2.10[facility] on above:Order Comment: Release to patient->AutomaticSignature .Invalid Interpretation [facility] on above:Order Comment: Release to patient->AutomaticStorage and Special InstructionsInvalid Interpretation [facility] on above:Order Comment: Release to patient->AutomaticResult Comment: The extracted DNA is stored in the [facility] at -70 degrees C and is being held for future testing. If there are any questions regarding this sample, please contact the [facility] at [phone].Total DNA Yield82.0 ugInvalid Interpretation [facility] on above:Order Comment: Release to patient->AutomaticTotal Volume OOA002 ulInvalid Interpretation Code [facility] on above:Order Comment: Release to patient->AutomaticIGP,APTIMA HPV,AGE GDLNon 52-83-8539YOE GDLN ACOG TESTINGNote. NOMS HealthcareComment on above:TESTS RESULT FLAG UNITS REF RANGE LAB Clinician Provided Cytology Information Source.............Cervix;Endocervix No. of containers..01 ThinPrep Vial Age Maicolo ACOG Francheska... FLAG LEGEND: L-Low Normal,H-High Normal,LL-Alert Low,HH-Alert High <-Panic Low,>-Panic High,A-Abnormal,AA-Critical Abnormal Performed at: 01 = Lab[address] [place] [address] Sugey Torres MD, IGP, RFX APTIMA HPV ASCUNote.[facility] HealthcareComment on above:TESTS RESULT FLAG UNITS REF RANGE LAB DIAGNOSIS: 02 NEGATIVE FOR INTRAEPITHELIAL LESION OR MALIGNANCY. Specimen adequacy: 02 Satisfactory for evaluation. Endocervical and/or squamous metaplastic cells (endocervical component) are present. Performed by: 02 Yudy Rhoades, Cutter Grinder ([facility]) . 02 Note: Note 02 The [...] <-Panic Low,>-Panic High,A-Abnormal,AA-Critical Abnormal Performed at: [address] [address] Sugey Torres MD, Performed at: = - [facility] [address] [id number] Machine Grinder: Sugey Torres MD, Phone: [phone] Performed at: - [facility] [id number] Machine Grinder: Sugey Torres MD, Phone: [phone] BRUSH-SPATULA CERVIX ENDOCERVIX CLINISYNCNOMS HealthcareCoding Summary.on 84-69-4095Qgwqvy Summary. OQBGUpof33KDz3wQk+PGhlYWQ+EJ2ZLOQvA26rtFIegN0nS2GOXKbLCjdaMJYPMVxXIfXqrpUaVL7jaM NjZXJu [file] I21jfRKab9R0H (more content not included)...NormalMercy Health Anderson Hospital CHEMISTRYOrdered By: SYSTEM SYSTEM on 77-58-4356Syte T4 [Mass/Vol]0.92 ng/dL Normal0.58 - 1.64 ng/dLRemisol [facility] Qn3.37 m[IU]/LNormal0.34 - 5.60 mcIU/mL Remisol ChemConsent for Treatmenton 51-59-8776Cjwrfqt for Treatment [id number]#1.00TIFFNormalMercy Health Anderson HospitalFree T4on 71-48-5438Ppww T4 [Mass/Vol]0.92 ng/dLNormal0.58-1.64[facility] HospitalComment on above:Performed By: #### [id number] #### [facility] [address] [place] [address]Mru 70-58-9176CWP Qn3.37 m[IU]/LNormal0.34-5.60[facility] HospitalComment on above:Performed By: #### [id number] #### [facility] [address] [place], [place] [address]Hrrrwdfctr Visit Summaryon 60-76-4787Vnwwkmdxlp Visit Summary YANA CHURCH :2000 Visit Date:08/08/2023 [...] you for choosing us for your care. [facility] Medicine Office/Clinic Noteon 15-33-1326Vpliie Medicine Office/Clinic NoteChief Complaint f/u for hypothyroid and weight loss [...] Unspecified hemorrhoids) Resolved, no additional complaints. saw [facility] for screening colonoscopy/diagnostic colonoscopy due to constipation Does not plan [...] with voice recognition artificial intelligence software, specifically [employer]around, Pixelle and or Net 263. Substitutions may have occurred due to the [...] Social History Alcohol Curren (more content not included)...[facility] SouthComment on above:Result Comment: Electronically Signed By: Ya Wang\.br\Date and Time Signed: 08/08/23 16:26 EDTPatient Educationon 08-08-2023 Patient EducationEndocrinology Hypothyroidism Hypothyroidism is when the thyroid gland does not make enough of certain hormones. This is called an underactive thyroid. The thyroid gland is a small gland located in the lower front part of the neck, just in front of the windpipe (trachea). This gland makes hormones that help control how the bodyuses food for energy (metabolism) as well as how the heart and brain function. These hormones also play a role in keeping your bones strong. When the thyroid is underactive, it produces too little ofthe hormones thyroxine (T4) and triiodothyronine (T3). What [...] Follow these instructions at home: ? Take utdo-dli-aqupule and prescription medicines only as told by [...] provider. Document Revised: 03/09/2022 Document Reviewed: 03/09/2022 [employer] Patient Education ? 2022 [employer]. Gastroenterology Hemorrhoids Hemorrhoids are swollen veins in and around the rectum or anus. There are two types of hemorrhoids: ? Internal hemorrhoids. These occur in the veins that are just inside the rectum. They may poke through to the outside and become irritated and painful. ? External hemorrhoids. These occur in the veins that are (more content not included)...NormalMercy Health Anderson HospitalPAP [id number] 05-20-2023. trachomatis rRNA FRANSISCO+probe Ql (Cvx)NegativeInvalid Interpretation CodeNegative [facility] HospitalComment on above:Performed By: #### [id number] ####[facility] Nsjznvrlpd146 [facility] Campusradhanewark-wayne community hospitalamerico [id number] Cytology report Cyto stain Doc (Cvx/Vag)NoteInvalid Interpretation [facility] HospitalComment on above:Result Comment: TESTS RESULT FLAG UNITS REF RANGE LAB Clinician Provided Cytology Information Source.............Cervix No. of containers..01 ThinPrep Vial DIAGNOSIS: 01 NEGATIVE FOR INTRAEPITHELIAL LESION OR MALIGNANCY. Specimen adequacy: 01 Satisfactory for evaluation. Endocervical and/or squamous metaplastic cells (endocervical component) are present. Performed by: 01 Erum Mckenzie, Cutter Grinder ([facility]) . 01 Note: Note 01 The [...] <-Panic Low,>-Panic High,A-Abnormal,AA-Critical Abnormal Performed at: [address] [address] Sugey Torres MD, Kbxezsbfd By: #### [id number] ###[facility] Qxgcxqukxs794 [address] [place], [id number] 16+18+31+33+35+39+45+51+52+56+58+59+66+68 DNA Probe+sig amp Ql (Cvx)Negative Invalid Interpretation CodeNegativeFisher St. Agnes HospitalComment on above: Result Comment: This nucleic acid amplification test detects fourteen high-risk HPV types (16,18,31,33,35,39,45,51,52,56,58,59,66,68) without differentiation.Performed By: #### [id number] ####[facility] Uhoagtmxig243 [facility], [id number]. gonorrhoeae rRNA FRANSISCO+probe Ql (Cvx) NegativeInvalid Interpretation CodeNegAdams County Regional Medical CenterComment on above:Performed By: #### [id number] ####[facility] Owqdpscdct767 [facility] [id number]. vaginalis rRNA FRANSISCO+probe Ql (Unsp spec)NegativeInvalid Interpretation CodeNegativeMercy Health Anderson Hospital Comment on above:Result Comment: Performed at: [facility] [address] [place], [place] [id number] MD Brian Mayes Performed at: =G [facility] [address] [place], [place] [id number] MD Brian MayesPerformed By: #### [id number] ####[facility] [address] [place] [address] [id number] Medicine Office/Clinic Noteon 67-10-6215Vgcgut Medicine Office/Clinic NoteChief Complaint Pap, f/u UTI HPI Staff Patient [...] normal, no masses, no nipple discharge, no erythema/warmth/tenderness, axillae normal. Cardiovascular: RRR, no murmurs, no [...] was performed without the assistance of medical records tech as witness Pelvic Exam: Vulva: normal appearance, normal hair distribution, no lesions or masses. - Except mild additional skin tissue noted to the [...] age 21 to 65 years with cytology/Pap smearevery 3 years or for women age 30-65 [...] Some medicines can cause abnormal test results, suchas vaginal medicines and tetracycline. ? Avoiding douching 2?3 days before or the day of the test. Follow up every 3-5 years based on results PERFUME MAKER referral if needed for further testing or [...] placed F/u 6 months (more content not included)...NormalMercy Health Anderson Hospital Comment on above:Result Comment: Electronically Signed By: Ya Wang\.irvin\Date and Time Signed: 05/16/23 15:38 ESTPAP [id number] 05-16-2023 Gynecological Body SiteCERVIXNormalMercy Health Anderson HospitalComment on above: Performed By: #### [id number] ####[facility] Qjvxjlapno[address] [place] [id number] Educationon 94-17-9307Bukmorp Education Obstetrics and Gynecology Pap Test Why [...] have a Pap test every 3 years untilyou reach menopause or age 65. Women aged [...] from the surface of your cervix. This willbe done using a small cotton swab, plastic [...] Some medicines can cause abnormal test results, suchas vaginal medicines and tetracycline. ? Avoiding douching 2?3 days before or the day of the test. Tell a health care provider about: ? Any allergies you have. ? All medicines you are taking, including vitamins, herbs, eye drops, creams, and ybwg-svd-cezunow medicines. ? Any bleeding problems you have. [...] provider. Document Revised: 06/05/2021 Document Reviewed: 06/05/2021 [employer] Patient Education ? 2022 [employer]. Oncology Cancer Screening for Women A cancer [...] to asbestos. How i (more content not included)...NormalMercy Health Anderson HospitalConsent for Treatmenton 30-66-7608Kylczfp for Treatment [id number]#1.00TIFFNormalMercy Health Anderson HospitalUA With Cult Reflexon 26-97-0558Dmmyhtjkd Ql (U)NegativeNormalNegative [facility] HospitalComment on above:Performed By: #### [id number] ####[facility] [address] [place] [address] Clarity (U)CLEARNormalClearMercy Health Anderson HospitalComment on above:Performed By: #### [id number] ####[address] [place], [place] [address]Vkjxk (U)YELLOWNormalYellowMercy Health Anderson Hospital Comment on above:Performed By: #### [id number] ####[facility] [address]hpnvxdqx[address] [place], [place] [address]Jqrpiskqcq cells.squamous LM.HPF (Urine sed) [#/Area]3-0Dczwmv1-2Knzeyx St. Agnes HospitalComment on above: Performed By: #### [id number] ####[facility] [address] [place], [place] [address]Gfbnhag Test strip (U) [Mass/Vol]NegativeNormal NegativeMercy Health Anderson HospitalComment on above:Performed By: #### [id number] ####[facility] [address] [place] [address] Hemoglobin Ql (U)NegativeNormalNegativeMercy Health Anderson HospitalComment on above:Performed By: #### [id number] ####[facility] [address]joemcppj[address] [place], [place] [address]Imwuggm (U) [Mass/Vol]NegativeNormalNegAdams County Regional Medical CenterComment on above:Performed By: #### [id number] ####[address] [address] [place].plasma/[place].RBC (Bld) [Mass ratio]3-5Kuhoov8-3Yxnyvq St. Agnes HospitalComment on above:Performed By: #### [id number] ####[address] [address]Xwwnzbe Ql (U)NegativeNormal NegativeMercy Health Anderson HospitalComment on above:Performed By: #### [id number] ####[address] [address]zB (U)6.0 [pH]Invalid Interpretation Code5.0-9.0Mer[facility] Anderson HospitalComment on above:Performed By: #### [id number] ####[address] [address]Szgqlgz (U) [Mass/Vol]NegativeNormal NegativeMercy Health Anderson HospitalComment on above:Performed By: #### [id number] ####[address] [address] Specific gravity (U) [Rel density]>=1.030Invalid Interpretation Code1.005-1.030 [facility] HospitalComment on above:Performed By: #### [id number] ####[address] [address]Dspw of Urine collection methodClean CatchNormalMercy Health Anderson HospitalComment on above:Performed By: #### [id number] ####[address] [address]Nputybvjxpeb Qn (U)0.2 {Mehdi'U}/dLNormal0.0-1.0 [facility] HospitalComment on above:Performed By: #### [id number] ####[address] [address]HPR Auto Ql (U)NegativeNormalNegativeMercy Health Anderson HospitalComment on above: Performed By: #### [id number] ####[address] [place], [place] [address]GNI LM.HPF (Urine sed) [#/Area]7-7Dqriep1-0Tvtrvu St. Agnes HospitalComment on above:Performed By: #### [id number] ####[facility] [address] [place], [place] [address]EXCFTGKYVO Ordered By: Alphonso Wang on 51-15-2252Wfqlljiwz Ql (U)Negative (03/24/23 11:15 AM)NormalNegativeOK[facility] UA Auto SSClarity (U)Clear (03/24/23 11:15 AM)NormalClearFAMERICAN HOSPITAL ASSOCIATION UA Auto SSColor (U)Yellow (03/24/23 11:15 AM)NormalYellowOKLAHOMA ER & HOSPITAL [facility] UA Auto SSEpithelial cells.squamous LM.HPF (Urine sed) [#/Area]0-2 /HPFNormal0-2/HPFOKLAHOMA ER & HOSPITAL – [facility] UA Auto SSGlucose Test strip (U) [Mass/Vol]Negative (03/24/23 11:15 AM)NormalNegativeOKLAHOMA [facility] & [facility] UA Auto SSHemoglobin Ql (U)Negative (03/24/23 11:15 AM)NormalNegativeOKLAHOMA [facility] & [facility] UA Auto SSKetones (U) [Mass/Vol]Negative (03/24/23 11:15 AM)NormalNegativeOKLAHOMA [facility] & [facility] UA Auto SSLithium.plasma/[place].RBC (Bld) [Mass ratio]0-3 /HPFNormal0-3/HPFOKLAHOMA ER & HOSPITAL [facility] UA Auto SSNitrite Ql (U)Negative (03/24/23 11:15 AM)NormalNegativeOKLAHOMA [facility] & [facility] UA Auto SSpH (U)6.0 *NA* (03/24/23 11:15 AM)Invalid Interpretation Code5.0 - 9.0[facility] UA Auto SSProtein (U) [Mass/Vol]Negative (03/24/23 11:15 AM)NormalNegativeOKLAHOMA [facility] & [facility] UA Auto SSSpecific gravity (U) [Rel density] >=1.030 *NA* (03/24/23 11:15 AM)Invalid Interpretation Code1.005 - 1.030[facility] UA Auto SSUA Spec DescClean Catch (03/24/23 11:15 AM)NormalOKLAHOMA ER & HOSPITAL – [facility] UA Auto SSUrobilinogen Qn (U)0.5002713 {Mehdi'U}/dLNormal0.0 - 1.0 EU/dLOKLAHOMA ER & HOSPITAL – [facility] UA Auto SSWBC Auto Ql (U)Negative (03/24/23 11:15 AM)NormalNegativeOKLAHOMA [facility] UA Auto SSWBC LM.HPF (Urine sed) [#/Area]0-5 /HPFNormal0-5/HPFOKLAHOMA ER & HOSPITAL [facility] UA Auto SST3 Freeon 35-46-6488Zcsv T3 [Mass/Vol]2.9 pg/mL Invalid Interpretation Code2.0-4.4Fisher St. Agnes HospitalComment on above: Result Comment: Performed at: [facility] [address] [id number] PhD Haider BarrazaPerformed By: #### [id number], [id number], [id number] ####[facility] [address] [place], [place] [address]PO Retroperitoneal Completeon [id number] Retroperitoneal CompleteExam Date/Time: 03/22/2023 09:49 EST Reason for Exam: [...] cystic/solid masses, bilateral kidneys. Ordering Provider: Ya Thorntno FINAL REPORT Dictated: 03/23/2023 10:18 am Isidoro Taylor MD Signed (Electronic Signature): 03/23/2023 10:18 am Signed by: Isidoro Taylor MD Transcribed by: RAZIA Technologist: Hussain St. Agnes HospitalCHEMISTRY Ordered By: SYSTEM SYSTEM on 66-24-2170Ifwo T4 [Mass/Vol]1.10 ng/dLNormal0.58 - 1.64 ng/dLRemisol ChemTSH Qn0.90 m[IU]/LNormal0.34 - 5.60 mcIU/mLRemisol Chem Consent for Treatmenton 73-35-6785Zpilgwv for Treatment [id number]#1.00TIFFPremier Health Miami Valley Hospital SouthFree T4on 84-62-4607Jxfw T4 [Mass/Vol]1.10 ng/dLNormal0.58-1.64[facility] HospitalComment on above:Performed By: #### [id number], [id number], [id number] ####[facility] [address] [place], [place] [address]FCTra 89-00-2658UJZ Qn0.90 m[IU]/LNormal0.34-5.60[facility] HospitalComment on above:Performed By: #### [id number], [id number], [id number] ####[facility] [address] [place] [address] Urineon 91-28-4430Lwsmbscd identified Cx Nom (U)Microbiology PROCEDURE: Urine Culture [R1] SOURCE: U CleanCatch [...] Locations R1: This test was performed at: [facility], [address] [place] [address], [id number] [place] [address], VlaqhtJrgfkkPremier Health Miami Valley Hospital SouthComment on above:Performed By: #### [id number] ####[facility] [address]itsaq[address] [facility] hospitalamericoO[place], [place] [address]Okhwio Medicine Office/Clinic Noteon 65-72-2201Cdzhcp Medicine Office/Clinic NoteChief Complaint 2 wk f/u HPI Staff Reason [...] near the pelvic area. Patient denies fever, nausea/vomiting/diarrhea/constipation, foul odor, discharge, pruritus, hematuria. Patient denies [...] due to her gallbladder. 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 She is able to schedule [...] office today shows: Negat (more content not included)...[facility] Hospital SouthComment on above:Result Comment: Electronically Signed By: Ya Wang\.br\Date and Time Signed: 03/11/23 06:06 EST\.br\Electronically Co-Signed By: Annetta Blackburn\.br\Date and Time Co-Signed: 03/09/23 12:22 ESTAmbulatory Visit Summaryon [id number] Visit Summary YANA CHURCH :2000 Visit Date:03/09/2023 Ambulatory Visit Instructions Your Diagnosis BMI 21.0-21.9, adult Feeling of incomplete bladder emptying Other cystitis with hematuria Hypothyroidism Tests Performed Urnls Dip Stick Auto w/o Microscopy POC [address]6896 Your Care Team Attending Physician - Ya [...] 10:00 AM EDT With: Ya Wang [facility] ([facility]), pp_set_radiology_subspecialty, [facility]\.br\ Medicati ons\.br\ What How Much When Why Instructions\.br\ New cephalexin (Keflex 500 mg Cap) 1 Capsules By Mouth 4 times a day Feeling of incomplete bladder emptying Recurrent UTI (urinary tract infection) Duration: 7 Days [facility]up at [facility]\.br\ New phenazopyridine (Pyridium 200 mg Tab) 1 Tablets By Mouth 3 times a day Feeling of incomplete bladder emptying Recurrent UTI (urinary tract infection) Duration: 3 Days Pickup at [facility]\.br\ Unchanged levothyroxine (Synthroid 112 mcg Tab) 1 Tablets By Mouth Every day Subclinical hypothyroidism\.br\ Unchanged loratadine(Claritin 10 mg Tab) 10 Milligram By Mouth Every day\.br\ Unchanged Misc Prescription (Glucose TestStrips) See instructions Glucose Test Strips \.br\ Unchanged Misc Prescription (Lancets) See instructions Lancets \.br\ Unchanged polyethylene glycol 3350 with electrolytes (NuLYTELY Paige oral powder for reconstitution) See instructions Prior to colonoscopy. \.br\ Pharmacy Information\.br\ [facility]: [address] [place], [place] [id number] [phone]\.br\ Test Results\.br\ Urnls Dip Stick Auto w/o Microscopy POC 301[address] (03/09/2023)\.br\ Bilirubin Urine Dipstick - Negative\.br\ Blood Urine Dipstick - Trace-intact\.br\ Glucose Urine Dipstick - Negative\.br\ Ketones UrineDipstick - Negative\.br\ Leukocytes Urine Dipstick - Trace\.br\ Nitrite Urine Dipstick - Negative\.br\ Protein Urine Dipstick - Negative\.br\ Specific [place] Urine Dipstick - 1.020\.br\ Urine Appearance Urine [...] Hx gestational diabetes\.br\ Hx of allergic rhinitis\.br\ Hypothyroidism\.br\ Migraine without aura\.br\ Non-smoker\.br\ Recurrent UTI (urinary tract infection)\.br\ Severe dysmenorrhea\.br\ Subclinical hypothyroidism\.br\ Weight loss\.br\ Historical - Any problem that you are no longer receiving treatment for.\.br\ Abdominal pain\.br\ Patient Survey\.br\ You may receive a survey via text or e-mail asking about your office visit. Please share your experience with us by completing your survey. We appreciate your feedback and thank you for choosing us for your care.\.br\ Educ ation Materials\.br\ Urodynamic Testing\.br\ \.br\ Urodynamic tests are [...] the flow of your urine.\.br\ Why do Ineed urodynamic testing?\.br\ You may need urodynamic testing to help find the cause of any of these problems:\.br\ ? \.br\ Leaking urine (incontinence).\.br\ ? \.br\ Problems starting or stopping your [...] that you arrive with a full bladder.\.br\ ?\.br\ Tell a health care provider about:\.br\ ? \.br\ Any allergies you have.\.br\ ? \.br\ All medicines you are taking, including vitamins, herbs, eye drops, creams, and mqtt-iea-qrpyvrp medicines.\.br\ ? \.br\ Whether you are or [...] pictures can be taken during the test.\.br\ Electromyogram\.br\ This test measures the electrical activity of the nerves and muscles of your bladder and the opening of your urethra.\.br\ ? \.br\ Sticky patches (electrodes) will be placed near your rectum and urethra to measure electrical activity.\.br\ ? \.br\ The measurements will show how well your nerves are communicating with your muscles.\.br\ What [facility] HospitalPatient Educationon 33-75-3275Xjxjzxf Education Endocrinology Hypothyroidism Hypothyroidism is when the thyroid gland does not make enough of certain hormones. This is called an underactive thyroid. The thyroid gland is a small gland located in the lower front part of the neck, just in front of the windpipe (trachea). This gland makes hormones that help control how the bodyuses food for energy (metabolism) as well as how the heart and brain function. These hormones also play a role in keeping your bones strong. When the thyroid is underactive, it produces too little ofthe hormones thyroxine (T4) and triiodothyronine (T3). What [...] Follow these instructions at home: ? Take krzt-yne-bgknsgk and prescription medicines only as told by [...] provider. Document Revised: 03/09/2022 Document Reviewed: 03/09/2022 [employer] Patient Education ? 2022 [employer]. Obstetrics and Gynecology Urinary Tract Infection, Adult A urinary tract infection (UTI) is an infection of any part of the urinary tract. The urinary tractincludes the kidneys, ureters, bladder, and urethra. These organs make, store, and get rid of urinein the body. An upper UTI affects the ureters and kidneys. A lower UTI affects the bl (more content not included)...[facility] SouthPhysician Referralon 20-18-8884Sjxeejfwn [id number]#1.00TIFF [facility] Hospital SouthProvider Letteron 51-63-9587Psspdcja Letter March 02, 2023 YANA [address]CH [address] [place] [id number] : [address] Clay Waters is know on your insurance & we are able to schedule your EGD & Colonoscopy. Please call us at [phone] [facility] convenience to schedule your procedure. Thank you for your prompt attention to this matter. Sincerely, [facility] 03-02-2023 Reminders From: Erum Gold To: [facility] - Reminders/Recalls; Sent: 11/30/2022 12:34:03 EDT Show up: 11/30/2022 12:34:00 EDT Subject: Ambulatory Reminder [employer] Reminder/Recall Call pt and scheduled EGD and Colonoscopy with Dr. Williamson once [employer] is approved. From: Rusty Alfred ([facility] - Reminders/Recalls) To: Yue Perez; Sent: [...] letter to patient to call office to [facility] Urineon [id number] identified Cx Nom (U)Microbiology PROCEDURE: Urine Culture [R1] SOURCE: U CleanCatch [...] or tested, I=Intermediate, ESBL=Extended spectrum beta-lactamase, R=Resistant, TFG=Thymidine-dependent strain, STEVEN=Beta-lactamase positive, CHRIS=mcg/m;(mg/L), S*=Predicted susceptible interp, [...] Locations R1: This test was performed at: [facility], [address] [place] [address], [facility] , , JpigvaKmviguPremier Health Miami Valley Hospital SouthComment on above:Performed By: #### [id number] ####[facility] [address] [place] [address] Medicine Office/Clinic Noteon 91-92-8313Bomzqs Medicine Office/Clinic NoteChief Complaint UTI symptoms HPI Staff Reason for [...] color was orange in appearance due to cbrh-lfr-vztydns meds she was taking, normal urobilinogenpH 5.5 Based on these results and patient [...] fragrance. After swimming, change into dry clothes. Avoidsoft drinks, caffeinated drink, and chocolate, as can irritate the bladder. Recommend drinking cranberry juice as a home remedy for UTIs, as makes urine more acidic and prevent bacteria from spreading. Increase water intake to flush out the bladder. Ordered: nitrofurantoin, 100 mg = 1 cap(s), Oral, q12hr, X 5 day(s), # 10 cap(s), Refills(s) 0, [facility]acy: [facility], 166, cm, 02/21/23 13:06:00 EST, Height/Length Dosing, 58.6, kg, 02/21/23 13:06:00 EST, Weight Dosing phenazopyridine, 200 mg = 1 tab(s), Oral, TID, X 3 day(s), # 9 tab(s), Refills(s) 0, [facility]: [facility], 166, cm, 02/21/23 13:06:00 EST, Height/Length Dosing, 58.6, kg, 02/21/23 13:06:00 EST, Weight Dosing Urine Culture Urnls Dip Stick Auto w/o Microscopy POC 31297 2. Acute cystitis (N30.00: Acute cystitis without hematuria) #1 3. Constipation in female (K59.00: Constipation, unspecified) improving. occasional Colace OTC and Miralax 4. Hemorrhoids (K64.9: Unspecified hemorrhoids) improving, stable 5. Hypothyroidism (E03.9: Hypothyroidism, unspecified) Chronic Stable with 112 mcg daily of Synthroid _ control Weight is stable Asymptomatic- noteable tachycardia today Du (more content not included)...[facility] Hospital SouthComment on above:Result Comment: Electronically Signed By: Ya Wang.irvin\Date and Time Signed: 02/21/23 13:39 ESTPatient Educationon 02-21-2023 Patient EducationUrology Dysuria Dysuria is pain or discomfort during [...] these instructions at home: Medicines ? Take qdbj-bcz-ggjigwp and prescription medicines only as told by [...] back after urinating or having a bowel movement.Use each piece of toilet paper only once. ? Empty your bladder after sex. ? Keep all follow-up visits. This is important. ? If you had any tests done to find the cause of dysuria, it is up to you to get your test results.Ask your health care provider, or the department [...] provider. Document Revised: 10/17/2020 Document Reviewed: 10/17/2020 [employer] Patient Education ? 2022 [employer].[facility] Ambulatory Visit Summaryon [id number] Visit Summary LILIANAYANA MONTENEGRO :2000 Visit Date:11/30/2022 Ambulatory Visit Instructions Your [...] Prescription (Lancets) docusate (Colace) fluticasone nasal (Flonase) hydrocortisone-lidocaine topical (hydrocortisone-lidocaine 2.5%-3% rectal gel with applicator) levothyroxine (Synthroid 112 mcg Tab) loratadine (Claritin 10 mg Tab) Procedures Performed None. Discharge Vitals Temperature (Temporal Artery) 36.4 ?C Heart Rate (Peripheral) 97 Blood Pressure 105/70 Height 166 cm Height 65 in Weight 58.8 kg Weight 129.36 lb BMI 21.34 What to do next Scheduled Follow-Up Appointments Tuesday 1:00 PM EST With: Ya Wang [facility] Gastroenterology Office/Clinic Noteon 46-56-0077Kisqbgcllzdjokmj Office/Clinic NoteChief Complaint constipation HPI Staff Patient is a [...] Patient's PCP advised patient regarding MiraLAX, Colace, sitzbath's and was ordered hydrocortisone/lidocaine topical rectal gel twice daily. Patient had [...] treatment by her PCP with miralax, colace, hydrocortisone/lidocainegel. She reports she has to push/strain to have a BM. Is having rectal itching and pressure over the last 2 months, occurring daily. Is having 1 formed BM daily with colace daily. She reports she haslost 5 pounds intentionally over the last 2 [...] nourished, in no acute distress Head: Normocephalic/atraumatic Lungs: Normal respiratory effort and clear to [...] Refill(s) 0, Prior to colonoscopy., [id number], 166, cm, 11/30/22 12:12:00 EDT, Height/Length Dosing, [...] rhinitis Hypoglycemia Hypothyroidism Left (more content not included)...[facility] SouthComment on above:Result Comment: Electronically Signed By: Daniel Gray CNP\.br\Date and Time Signed: 11/30/22 12:32 EDTPatient Educationon 71-33-8956Adadcpx EducationGastroenterology High-Fiber Eating Plan Fiber, also called dietary [...] Be aware of foods with added fiber. Thesefoods often have high sugar and sodium amounts per serving. Cooking ? Use whole-grain flour for baking and cooking. ? Cook with brown rice instead of white rice. Meal planning ? Start the day with a breakfast that is high in fiber, such as a cereal that contains 5 g of fiberor more per serving. ? Eat breads and [...] Bulgur wheat. Millet. Quinoa. Bran muffins. Popcorn. [place] wafer crackers. Meats and other proteins [place] beans, kidney beans, and díaz beans. Soybeans. [...] Cream cheese. Sour cream. Fats and oils Becker. Beverages Soft drinks. Other foods Cakes and [...] care provider. Document Revised: (more content not included)...[facility] SouthPre-Certification Formon 48-84-3952Wgq-Certification Form [id number]:127NormalMercy Health Anderson HospitalFapappas rehabilitation hospital for children Medicine Office/Clinic Noteon 66-95-8560Plpevf Medicine Office/Clinic NoteChief Complaint pt here for hemmeroids not getting [...] visit we encourage proper diet and exercise uhyi-agf-ueeolvc MiraLAX or Colace with Preparation H rtkx-rsy-fvgsxfu, bleeding has stopped, blood noted on toilet [...] no food allergies, no recurrent infections, no impairedimmunity Additional ROS info: Except as noted in [...] Rectal exam was performed, I did offer timber management assistant but patient declined, external anus is normal [...] length of time on toilet, sitz bath's, ndav-jmn-rpjbvor medications and suppositories and creams Hydrocortisone lidocaine with applicator gel ordered today to use twice daily Referral for GI referral placed today Ordered: hydrocortisone-lidocaine topical, 1 carmen, Rectal, BID, 60 EA, Refill(s) 1, [facility], 166, cm, 11/11/22 9:28:00 EDT, Height/Length Dosing, 59.4, kg, 11/11/22 9:28:00 EDT, Weight Dosing [facility] Internal Ambulatory Referral 2. Hypothyroidism (E03.9: Hypothyroidism, [...] exercise. Orders: azelastine ophthalmic, (more content not included)...[facility] SouthComment on above:Result Comment: Electronically Signed By: Ya Wang\.br\Date and Time Signed: 11/11/22 09:53 EDTPatient Educationon 11-93-7963Kqljgej EducationHigh-Fiber Diet Fiber, also called dietary fiber, is [...] that sometimes causes pain and diarrhea (irritable bowelsyndrome, IBS). ? Prevent overeating as part of [...] than from fiber supplements. There is not alot of research about how effective supplements are. ? Always check the fiber content on the nutrition facts label of any prepackaged food. Look for foods that contain 5 g of fiber or more per serving. ? Talk with a diet and food and nutrition teacher (dietitian) if you have questions about specific [...] a cereal that contains 5 g of fiberor more per serving. ? Use beans in [...] Bulgur wheat. Millet. Quinoa. Bran muffins. Popcorn. [place] wafer crackers. Meats and other proteins [place], kidney, and díaz beans. Soybeans. Split peas. [...] Cream cheese. Sour cream. Fats and oils Becker. Beverages Soft drinks. Other foods Cakes and [...] and reducing your risk of heart disease, diabetes,and certain cancers. ? Gradually increase your intake [...] 03/07/2006 Document Revised: 01/09/2018 Document Reviewed: 01/09/2018 [employer] Patient Education ? 2019 [employer]. Gastroenterology H (more content not included)...[facility] SouthAmbulatory Visit Summaryon 52-93-0889Zbfkisbqyl Visit Summary YANA CHURCH :2000 Visit Date:10/08/2022 [...] f/u for hypothyroid, weight loss Where: [facility], [facility] [address] [address]- Business (1) You Need to Complete the Following Anti-thyroid Abys, Blood, Routine collect, 10/08/22, Order for future visit, Lab Collect, Weight lossInvalid Interpretation CodeHypothyroidismMercy Health Anderson HospitalAuto Diffon [id number]/100 WBC (Bld)1.1 %Normal0.0-2.0 [facility] HospitalComment on above:Order Comment: Order Added by Discern Expert.Performed By: #### [id number], [id number], [id number], [id number], [id number] ####[facility] [address] [place] [address] Basophils/Leukocytes Auto (Bld) [Pure # fraction]0.1 E9/LNormal0.0-0.2FACMC Healthcare SystemComment on above:Order Comment: Order Added by Discern Expert.Performed By: #### [id number], [id number], [id number], [id number], [id number] ####[facility] [address] [place] [address] Eosinophils/100 WBC (Bld)1.2 %Normal0.0-8.0[facility] HospitalComment on above:Order Comment: Order Added by Discern Expert.Performed By: #### [id number], [id number], [id number], [id number], [id number] ####[facility] Lab [address] [place] [address]Lrcaojqknqx/Leukocytes Auto (Bld) [Pure # fraction]0.1 E9/LNormal0.0-0.5FACMC Healthcare SystemComment on above: Order Comment: Order Added by Discern Expert.Performed By: #### [id number], [id number], [id number], [id number], [id number] ####[facility] [address] [place] [address]Btzdnybaonh/100 WBC (Bld)41.0 %Normal 14.0-50.0[facility] HospitalComment on above:Order Comment: Order Added by Discern Expert.Performed By: #### [id number], [id number], [id number], 5152501, [id number] ####[address] [address]Mycubcyjfmk/Leukocytes Auto (Bld) [Pure # fraction]2.3 E9/LNormal1.0-4.0 [facility] HospitalComment on above:Order Comment: Order Added by Discern Expert.Performed By: #### [id number], [id number], [id number], [id number], [id number] ####[address] [address] Monocytes/100 WBC (Bld)5.8 %Normal4.0-14.0[facility] HospitalComment on above:Order Comment: Order Added by Discern Expert.Performed By: #### [id number], [id number], [id number], [id number], [id number] ####[facility] [address] [place] [address]Izsdwkxqq/Leukocytes Auto (Bld) [Pure # fraction]0.3 E9/LNormal0.2-1.0[facility] Anderson HospitalComment on above:Order Comment: Order Added by Discern Expert.Performed By: #### [id number], 35345889, 53350650, 3657245, 9850440 ####[address] [address]Akbsdqxjncu/100 WBC (Bld)50.9 %Pvsksg78.0-75.0 [facility] HospitalComment on above:Order Comment: Order Added by Discern Expert.Performed By: #### 6070383, 19946297, 26158364, 8207777, 9834260 ####[address] [address] Neutrophils/Leukocytes Auto (Bld) [Pure # fraction]2.8 E9/LNormal2.0-7.5FACMC Healthcare SystemComment on above:Order Comment: Order Added by Discern Expert.Performed By: #### 8009388, [id number], 20314271, 3120457, 8842351 ####[address] [address]JDQ w/ Auto Diffon 09-62-7676Qaibvoynpbv distribution width (RBC) [Ratio]12.6 % Hrcxnl07.9-14.2FACMC Healthcare SystemComment on above:Performed By: #### 6467750, 15374640, 03817601, 4660706, 2526123 ####[address] [address]Fyvfntpbfr (Bld) [Volume fraction] 40.4 %Xmajrm10.0-46.0[facility] HospitalComment on above:Performed By: #### 1278767, 21932786, 12986588, 8064608, 9520223 ####[address] [address]Vromfgmddv (Bld) [Mass/Vol] 14.1 g/yFXhflli94.0-16.0[facility] HospitalComment on above:Performed By: #### 1699126, 70329715, 85265923, 5660098, 9633203 ####[address] [address]CMX (RBC) [Entitic mass]32.1 gmDncfvj85.0-34.0[facility] HospitalComment on above:Performed By: #### 0015665, 62009863, 77433302, 4936954, 9575457 ####[address] [address]UUSS (RBC) [Mass/Vol]34.8 g/dLNormal 31.4-36.0[facility] HospitalComment on above:Performed By: #### 0676800, 74797857, 02380065, 1841508, 9953592 ####[facility] [address] [place] [address]NOU (RBC) [Entitic vol]92.1 fLNormal 80.0-100.0[facility] HospitalComment on above:Performed By: #### 7893680, 04930769, 04496481, 3426179, 8306470 ####[address] [address]Escfvysv mean volume (Bld) [Entitic vol]9.1 fLNormal6.4-10.8[facility] HospitalComment on above:Performed By: #### 2136573, 75217244, 14939734, 9543458, 7452026 ####[address] [address]Kefztfpni (Bld) [#/Vol]238.0 E9/SJptqca056.0-500.0[facility] HospitalComment on above:Performed By: #### 7556230, 17965885, 04929448, 9247405, 2677064 ####[address] [address]JUM (Bld) [#/Vol]4.4 E12/L Normal4.3-5.9[facility] HospitalComment on above:Performed By: #### 9198187, 53159573, 26727156, 9352051, 6290473 ####[address] [address]CKH corrected for nucl RBC Auto (Bld) [#/Vol]5.6 E9/LNormal4.0-11.0[facility] HospitalComment on above: Performed By: #### 7624195, 65830448, 70680551, 6261175, 3936552 ####[facility] [address] [place], [place] [address]VRHaf 10-08-2022 Albumin [Mass/Vol]4.7 g/dLNormal3.3-5.0[facility] HospitalComment on above:Performed By: #### 0691129, 82832422, 94729694, 5680421, 5997045 ####[facility] [address] [place] [address] Albumin/Globulin (S) [Mass conc ratio]1.0Rpjqze2.1-2.2FACMC Healthcare SystemComment on above:Performed By: #### 2756535, 12140342, 81821750, 4719425, 9324757 ####[facility] [address] [place] [address]ZEJ [Catalytic activity/Vol]42 Int._Unit/CNywral13-54JpsbpqMercy Health Anderson HospitalComment on above:Performed By: #### 0015581, 56404268, 76655275, 3753266, 5123620 ####[facility] [address] [place], [place] [address]QMH No additional P-5'-P [Catalytic activity/Vol]15 Int._Unit/LNormal6-46 [facility] HospitalComment on above:Performed By: #### 1658736, 38364955, 88055056, 4648165, 7002901 ####[facility] [address] [place], [place] [address]Gvfsb gap [Moles/Vol]13 mmol/LNormal6-16 [facility] HospitalComment on above:Performed By: #### 0603722, 64752186, 00616186, 3908597, 9169025 ####[facility] [address] [place], [place] [address]JKI [Catalytic activity/Vol]22 Int._Unit/LNormal5-43Fisher [facility] Green Medical CenterComment on above:Performed By: #### 0794747, 60047110, 82875964, 1489366, 4938328 ####[facility] [address] [place], [place] [address]Pygmgcrym [Mass/Vol]0.5 mg/dL Normal0.0-1.1FACMC Healthcare SystemComment on above:Performed By: #### 8486679, 01455018, 55795139, 0331605, 4580158 ####[facility] [address] [place], [place] [address]Wgbzzfx [Mass/Vol]9.4 mg/dLNormal 8.9-11.1FACMC Healthcare SystemComment on above:Performed By: #### 7532256, 26163058, 65982328, 6822815, 2611501 ####[facility] [address] [place], [place] [address]Atkqnpkz [Moles/Vol]107 mmol/LNormal 101-111[facility] Anderson HospitalComment on above:Performed By: #### 1946556, 79334266, 58151322, 7599646, 3513086 ####[facility] [address] [place], [place] [address]IR8 [Moles/Vol]24 mmol/UEjqiqw27-28 [facility] HospitalComment on above:Performed By: #### 3282330, 93425661, 75451528, 0827076, 3945139 ####[facility] [place], [place] [address]Emiorgvpiz [Mass/Vol]0.7 mg/dLNormal 0.5-1.3FACMC Healthcare SystemComment on above:Performed By: #### 3677598, 63041447, 70468942, 1381941, 1822480 ####[facility] [address] [place], [place] [address]Iihzufbs (S) [Mass/Vol]3.2 g/dLNormal 1.4-4.0[facility] HospitalComment on above:Performed By: #### 3453384, 80141858, 91201713, 9278123, 9093495 ####[facility] [address] [place], [place] [address]Myllapa [Mass/Vol]105 mg/jRMyhbhf04-509 [facility] HospitalComment on above:Result Comment: If this glucose result represents a fasting glucose, interpretation should refer tothe following reference range: 55-99 mg/dLPerformed By: #### 0377541, 66978646, 63028472, 1352860, 0768555 ####[facility] [address] [place], [place] [address]Qbchmtfrc [Moles/Vol]3.9 mmol/LNormal3.5-5.3FACMC Healthcare SystemComment on above:Performed By: #### 7384391, 08463881, 87630167, 4144360, 7045478 ####[facility] [address] [place], [place] [address]Kpbbjif [Mass/Vol]7.9 g/dLHigh6.0-7.8[facility] HospitalComment on above:Performed By: #### 4655382, 36375626, 53721462, 0116011, 5159278 ####[facility] [address] [place], [place] [address]Gfilob [Moles/Vol]140 mmol/HYrupym836-128CjzohsMercy Health Anderson HospitalComment on above:Performed By: #### 8240924, 60689625, 88464905, 5675739, 2235929 ####[facility] [address] [place], [place] [address]Hjha nitrogen [Mass/Vol]17 mg/dLNormal5-21[facility] HospitalComment on above:Performed By: #### 0340859, 16426585, 15037502, 3044451, 6589452 ####[facility] [address] [place], [place] [address]Wavf nitrogen/Creatinine [Mass ratio]24 No SjfkuMzgo21-08SvdmdbMercy Health Anderson Hospital Comment on above:Performed By: #### 2988969, 17494883, 84427299, 1117830, 7425270 ####[facility] [address] [address]Xwazalq for Treatmenton 08-86-2603Nbytysr for Treatment [id number]#1.00CD:127NormalKettering Health Hamilton Medicine Office/Clinic Noteon 92-31-3308Srywyl Medicine Office/Clinic NoteChief Complaint Establish care --- pt here to [...] Dr Marshall scheduled for nov 2022 Specialists: Roll Tube Setter: Bird Álvarez in [place]- contacts most of the time, Dentist: UTD - no issues- Dr Nila MARSHALL- [facility] KASPER Review of Systems PHQ Score Initial [...] no food allergies, no recurrent infections, no impairedimmunity Additional ROS info: Except as noted in [...] Labs ordered today due to patient weight lossand history of hypothyroidism. Pap testing and gynecologic screenings per her ROLFER. Discussed self breast exams and other health maintenance. Encourage proper diet and exercise. Patient complainingof normal menses but strong family history of Adolfo's and along with anemia. Labs were ordered as follows follow-up with me in 6 months or sooner if needed Ordered: CBC w/ Auto Diff Comprehensive Metabolic Panel TSH With T4fr Reflex 2. Hemorrhoids (K64.9: Unspecified hemorrhoids) Encouraged proper diet and exercise increasing. Patient encouraged to use mlcr-fmo-gnxmiid MiraLAX or Colace, encouraged Preparation H gjkd-rok-azpcske topical treatments if needed. \ Follow-up only if needed. Patient only having minimal complaints 3. Constipation in female (K59.00: Constipation, unspecified) see #3 4. BMI 20.0-20.9, ad (more content not included)...[facility] SouthComment on above:Result Comment: Electronically Signed By: Ya Wang\.br\Date and Time Signed: 10/08/22 16:30 EDTPatient Educationon 62-38-9055Pqqyaii EducationEndocrinology Hypoglycemia Hypoglycemia occurs when the level of [...] your blood glucose level. This blood test isdone while you are having symptoms. Your health [...] take. Options for getting 15 grams of fast- acting carbohydrate include: ? Glucose tablets (take 4 [...] a hospital. The treatment may include getting glucosethrough an IV. You may also need treatment for the cause of your hypoglycemia. Follow these instructions at home: General instructions ? Take xypd-trg-pmmzgtc and prescription medicines only as told by your health care provider. ? Monitor your blood glucose as told by your health care provider. ? If you drink alcohol: ? Limit how much you have to: ? 0?1 (more content not included)...NormalAdena [facility] With T4fr Reflexon 62-06-2488NMK Qn0.58 m[IU]/LNormal0.34-5.60[facility] HospitalComment on above:Performed By: #### 8473063, 84717186, 65472512, 2251479, 3611508 ####[facility] [address] [place], [place] [address]tWTZhw 33-93-8923QYQ/1.73 sq M.predicted among non-blacks MDRD (S/P/Bld) [Vol rate/Area]124 mL/min/1.73 h9Ojiwuj>=59[address] Agnes HospitalComment on above:Order Comment: Order added by Discern Expert.Result Comment: Chronic kidney disease could be indicated at eGFR's of less than 60 mL/min/1.73m2. K idney failure is indicated at less than 15 mL/min/1.73m2.Performed By: #### 3709225, 16529643, 34868227, 5491462, 9471451 ####[facility] [address] [place], [place] [address]SMB ACOG PANEL 2: 21 to 29on 10-23-2021..NormalMercy Memorial HospitalComment on above:Performed By: #### CBC #### [facility] [address] [place] [address] Dr. Rima Dinh Gdln ACOG Hvvhire73-55FumfvqDsdGeorgetown Behavioral HospitalCommunson medical center on above:Performed By: #### CBC #### [facility] [address] [place] [address] Dr. Rima CharlesDIAGNOSIS:CommentAdena Fayette Medical Center on above: Result Comment: NEGATIVE FOR INTRAEPITHELIAL LESION OR MALIGNANCY. THIS SPECIMEN WAS RESCREENED PART OF OUR CARE TRANSPORT NURSE PROGRAM.Performed By: #### CBC #### [facility] [address] [place] [address] Dr. Rima CharlesMethodology:CommentAdena Fayette Medical Center on above: Result Comment: This liquid based ThinPrep(R) pap test was screened with the use of an image guided system.Performed By: #### CBC #### [facility] [address] [place] [address] Dr. Rima CharlesNote:CommentAdena Fayette Medical Center on above:Result Comment: The Pap smear is a screening test designed to aid in the detection of premalignant and malignant conditions of the uterine cervix. It is not a diagnostic procedure and should not be used as the sole means of detecting cervical cancer. Both false-positive and false-negative reports do occur. .Performed By: #### CBC #### [facility] [address] [place] [address] Dr. Rima CharlesPerformed by:CommentAdena Fayette Medical Center on above: Result Comment: Piter Cagle, Cutter Grinder (ASCP)Performed By: #### CBC #### [facility] [address] [place] [address] Dr. Rima Bryson reviewed by:[facility] on above:Result Comment: Hannah Morejon, Supervisory Cutter Grinder (ASCP) Performed By: #### CBC #### [facility] [address] [place] [address] Dr. Rima CharlesReflex Criteria:CommentAdena Fayette Medical Center on above:Result Comment: The HPV DNA reflex criteria were not met with this specimen result therefore, no HPV testing was performed. .Performed By: #### CBC #### [place] [address] Dr[address] Rima CharlesSpecimen adequacy:CommentAdena Fayette Medical Center on above:Result Comment: Satisfactory for evaluation. Endocervical and/or squamous metaplastic cells (endocervical component) are present. Areas of partially obscuring blood are present.Performed By: #### CBC #### [facility] [address] [place] [address] Dr. Rima Cornell T4on 27-79-5656Avxx T4 [Mass/Vol]1.01 ng/dLNormal0.76-1.46 [facility] on above:Performed By: #### FT4 #### [facility] [address] [place] [address] Dr. Rima BrowerHoagustín 37-26-8708AMG6.997 uIU/mLCritically high0.358-3.740The [facility] on above:Performed By: #### TSH #### [facility] [address] [place] [address] Dr. Rima CharlesVAGINITIS/VAGINOSIS DNA PROBEon 73-92-7187Tohjobr speciesNegative NormalNegativeThe [facility] on above:Performed By: #### CBC #### [facility] [address] [place] [address] Dr. Rima Moonerejoba vaginalisNegativeNormalNegativeMercy Memorial Hospital Comment on above:Performed By: #### CBC #### [facility] [address] [place] [address] Dr. Rima Calvo vaginalisNegativeNormalNegativeMercy Memorial Hospital Comment on above:Performed By: #### CBC #### [facility] [address] [place] [address] Dr. Rima CharlesCHLAMYDIA/GONOCOCCUS FRANSISCO (SWAB/URINE/PAPon 31-59-5402Prxibezav trachomatis, NAANegativeNormalNegativeMercy Memorial HospitalComment on above: Performed By: #### CBC #### [facility] [address] [place] [address] Dr. Rima CharlesNeisseria gonorrhoeae, NAANegativeNormalNegativeMercy Memorial HospitalComment on above:Performed By: #### CBC #### [facility] [address] [place] [address] Dr. Rima CharlesVAGINITIS/VAGINOSIS DNA PROBEon 81-60-3411Zyuwqru speciesNegative NormalNegativeMercy Memorial HospitalComment on above:Performed By: #### VAGINT #### [facility] [address] [place] [address] Dr. Rima Moonerebenedict vaginalisNegativeNormalNegativeMercy Memorial Hospital Comment on above:Performed By: #### VAGINT #### [facility] [address] [place] [address] Dr. Rima Calvo vaginalisNegativeNormalNegativeMercy Memorial Hospital Comment on above:Performed By: #### VAGINT #### [facility] [address] [place] [address] Dr. Rima Livingston 51-66-3398OYP3.494 uIU/mLNormal0.470-4.680Mercy Memorial HospitalComment on above:Performed By: #### CBC #### [facility] [address] [place] [address] Dr. Rima Dougherty RANGESEE Wilson Street HospitalComment on above: Result Comment: <0.34 UIU/ml HYPERTHYROID 0.34-5.60 UIU/ml EUTHYROID >5.60 UIU/ml HYPOTHYROIDPerformed By: #### CBC #### [facility] [address] [place] [address] [address] Rima Barnes MATERNAL FOR SPINA BIFIDAon 82-43-9600XDQ MoM0.98Community Memorial HospitalComment on above:Performed By: #### AFPMAT #### [facility] [address] [place] [address] [address] Rima Barnes Value36.3 ng/mLNormalMercy Memorial HospitalComment on above: Performed By: #### AFPMAT #### [facility] [address] [place] [address] [address] Rima Barnes, Serum for Spina BifidaReGalion Community Hospital Comment on above:Performed By: #### AFPMAT #### [facility] [address] [place] [address] [address] Rima CurrieSumma HealthComment on above:Result Comment: Alie Moon, Ph.D., [facility] Director . References: Available Upon Request. . Multiples Of Median Cutoffs For AFP Elevations Murphy 2.5 Black 2.8 IDD 2.0 Twins 4.5 Abbreviation Definitions IDD - Insulin Dep Diabetes OSBR - Open Spina Bifida Risk . For further inquiries contact [facility] at [phone].Performed By: #### AFPMAT #### [facility] [address] [place] [address] [address] Rima Pedro Age Collection Date16.0 weeksCommunity Memorial Hospital Comment on above:Performed By: #### AFPMAT #### [facility] [address] [place] [address] [address] Rima Pedroat, Age Based onLMPNormalMercy Memorial HospitalComment on above:Result Comment: Recalculations are not recommended when gestational dating by LMP and ultrasound are within 10 days.Performed By: #### AFPMAT #### [facility] [address] [place] [address] Dr. Rima CharlesMorrow County HospitalCommunson medical center on above:Performed By: #### AFPMAT #### [facility] [address] [place] [address] Dr. Rima CharlesInterpretationSumma HealthCommunson medical center on above: Result Comment: Interpretation: Screen Negative . This result is screen [...] Customer Services to discuss available options. The [employer] [employer] recommends amniocentesis be offered to women age 35 and older.Performed By: #### AFPMAT #### [facility] [address] [place] [address] Dr. Rima CharlesMaternahaley Age at EDD23.4 yrCommunity Memorial HospitalCommunson medical center on above:Performed By: #### AFPMAT #### [facility] [address] [place] [address] Dr. Rima Erazo [facility] HospitalCommunson medical center on above: Performed By: #### AFPMAT #### [facility] [address] [place] [address] Dr. Rima CharlesOSBR Risk 1 [id number] Memorial HospitalCommunson medical center on above: Performed By: #### AFPMAT #### [facility] [address] [place] [address] Dr. Rima Meadows.[facility] on above:Performed By: #### AFPMAT #### [facility] [address] [place] [address] Dr. Rima MccoyGerman HospitalComment on above: Performed By: #### AFPMAT #### [facility] [address] [place] [address] Dr. Rima Urena Results:NegativeNormalThe [facility] HospitalComment on above: Performed By: #### AFPMAT #### [facility] [address] [place] [address] Dr. Rima Del Rosario B SURFACE ANTIGEN SCREENon 59-21-4349HSmWy ScreenNegative NormalNegativeThe [facility] HospitalComment on above:Performed By: #### HBSANS #### [facility] [address] [place] [address] Dr. Rima RiosTIS C ANTIBODYon 96-56-0480Dco C Virus Ab<0.7Oikqlx3.0-0.9 [facility] on above:Result Comment: Negative: < 0.8 Indeterminate: 0.8 - 0.9 Positive: > 0.9 . The CDC recommends that a positive HCV antibody result be followed up with a HCV Nucleic Acid Amplification test (375778).Performed By: #### HCV #### [facility] [address] [place] [address] Dr. Rima Chery 1 AND 2 WITH REFLEXon 31-27-9373EXM Screen 4th Generation wRfxNon-ReactiveNormalNon ReactiveThe [facility] HospitalCommunson medical center on above: Performed By: #### HIV12 #### [facility] [address] [place] [address] Dr. Rima CharlesRPR QUANTon 34-42-8407Frbns Plasma Reagin, QuantNon-Reactive NormalNonRea<1:1The [facility] on above:Performed By: #### CBC #### [facility] [address] [place] [address] Dr. Rima MirelesBELLA AB IGGon 31-74-6998Tfytdrd Antibodies, IgG2.33 index NormalImmune >0.99The [facility] on above:Result Comment: Non- immune <0.90 Equivocal 0.90 - 0.99 Immune >0.99Performed By: #### RUBIGG #### [facility] [address] [place] [address] [address] Rima Sierra AUTO DIFFon 37-28-0553JEZR #0.0 103/ulNormal0.0-0.1The [facility] Hospitalment on above:Performed By: #### CBC #### [facility] [address] [place] [address] [address] Rima CharlesBasophils/100 WBC (Bld)0.4 %Normal0.2-2.0The [facility] Comment on above:Performed By: #### CBC #### [facility] [address] [place] [address] Dr. Rima Fuller #0.0 103/ulNormal0.0-0.7The [facility] HospitalComment on above: Performed By: #### CBC #### [facility] [address] [place] [address] Dr. Rima Leahyosinophils/100 WBC (Bld)0.6 %Critically low0.9-7.0The [facility] HospitalComment on above:Performed By: #### CBC #### [facility] [address] [place] [address] Dr. Rima Leahyrythrocyte distribution width (RBC) [Ratio]12.0 %Jnkhcy71.0-15.0 The [facility] HospitalComment on above:Performed By: #### CBC #### [facility] [address] [place] [address] Dr. Rima CharlesHematocrit (Bld) [Volume fraction]37.5 %Yqguht83.0-48.0The [facility] HospitalComment on above:Performed By: #### CBC #### [facility] [address] [place] [address] Dr. Rima CharlesHemoglobin (Bld) [Mass/Vol]13.2 g/mOBcwxhg93.0-16.0The [facility] Hospitalment on above:Performed By: #### CBC #### [facility] [address] [place] [address] Dr. Rima Carreno #0.02 10e3/ulNormal0.00-0.03The [facility] Hospitalment on above:Performed By: #### CBC #### [facility] [address] [place] [address] [address] Rima Carreno %0.3 %Normal0.0-0.5The [facility] HospitalCommunson medical center on above: Performed By: #### CBC #### [facility] [address] [place] [address] [address] Rima Singleton #1.4 103/ulNormal1.2-3.8The [facility] HospitalCommunson medical center on above:Performed By: #### CBC #### [facility] [address] [place] [address] Dr. Rima Jayhocytes/100 WBC (Bld)20.2 %Critically low20.5-60.0The [facility] HospitalCommunson medical center on above:Performed By: #### CBC #### [facility] [address] [place] [address] Dr. Rima Lr DIFF REQNONormalThe [facility] HospitalComment on above: Performed By: #### CBC #### [facility] [address] [place] [address] Dr. Rima Nicholas (RBC) [Entitic mass]33.2 okPildsl03.7-34.0The [facility] on above:Performed By: #### CBC #### [facility] [address] [place] [address] Dr. Rima Flal (RBC) [Mass/Vol]35.2 g/dUWqswry56.9-35.2The [facility] Hospitalment on above:Performed By: #### CBC #### [facility] [address] [place] [address] Dr. Rima Fall (RBC) [Entitic vol]94.5 oDPzxvsp35.0-99.0[facility] on above:Performed By: #### CBC #### [facility] [address] [place] [place] [address] Dr. Rima Grossman #0.4 103/ulNormal0.3-0.8The [facility] HospitalComment on above:Performed By: #### CBC #### [facility] [address] [place] [address] Dr. Rima Wenocytes/100 WBC (Bld)6.1 %Normal1.7-12.0The [facility] Comment on above:Performed By: #### CBC #### [facility] [address] [place] [address] Dr. Rima Huston #5.1 103/ulNormal1.4-6.5The [facility] HospitalComment on above:Performed By: #### CBC #### [facility] [address] [place] [address] Dr. Rima Bobutrophils/100 WBC (Bld)72.4 %Zuqnur39.0-75.0The [facility] HospitalComment on above:Performed By: #### CBC #### [facility] [address] [place] [address] Dr. Rima Bradfordlet mean volume (Bld) [Entitic vol]11.2 fLNormal9.5-13.5The [facility] HospitalComment on above:Performed By: #### CBC #### [facility] [address] [place] [address] Dr. Rima CharlesPLT221 103/bdUryxkw935-089Lfe [facility] HospitalComment on above: Performed By: #### CBC #### [facility] [address] [place] [address] Dr. Rima CharlesRBC3.97 106/ulCritically low4.20-5.40The [facility] HospitalComment on above:Performed By: #### CBC #### [facility] [address] [place] [address] Dr. Rima CharlesWBC7.1 103/ulNormal4.0-11.0The [facility] HospitalComment on above: Performed By: #### CBC #### [facility] [address] [place] [address] Dr. Rima Cardenas URINEon 12-35-4512LUIVVFX URINECulture Observations: No growthNoGeorgetown Behavioral HospitalComment on above:Performed By: #### CBC #### [facility] [address] [place] [address] Dr. Rima CharlesGLYCOHEMOGLOBIN A1Con 23-06-6545MDR RECOMMENDATIONADA THERAPEUTIC TARGET 6.0 - 7.0 ACTION SUGGESTED > 7.0NoGeorgetown Behavioral HospitalComment on above:Performed By: #### A1C #### [facility] [address] [place] [address] Dr. Rima CharlesGlucose [Mass/Vol]111 mg/dLCommunity Memorial HospitalComment on above:Performed By: #### A1C #### [facility] [address] [place] [address] Dr. Rima CharlesHbA1c (Bld) [Mass fraction]5.5 %Normal<=6.0[facility] Comment on above:Performed By: #### A1C #### [facility] [address] [place] [address] Dr. Rima Escalante BOX TEST PT SEND OUTon [id number] TO REF LAB12/09/20 NormalMercy Memorial HospitalCommunson medical center on above:Performed By: #### CBC #### [facility] [address] [place] [address] Dr. Rima BrowerHoagustín 41-05-5489DTX2.651 uIU/mLNormal0.470-4.680The [facility] HospitalCommunson medical center on above:Performed By: #### CBC #### [facility] [address] [place] [address] Dr. Rima Dougherty RANGESEE BELOWCommunity Memorial HospitalComment on above: Result Comment: <0.34 UIU/ml HYPERTHYROID 0.34-5.60 UIU/ml EUTHYROID >5.60 UIU/ml HYPOTHYROIDPerformed By: #### CBC #### [facility] [address] [place] [address] Dr. Rima CharlesTYPE AND SCREENon 30-72-1178VOQC AND SCREENNegativeNoGeorgetown Behavioral HospitalComment on above:Performed By: #### CBC #### [facility] [address] [address] [address] Rima Butler PREG TVon 12-93-8176IO PREG TVEXAMINATION: US PREG TV HISTORY: Urine test positive [...] Electronically authenticated by: LILIANE POPE Date: 2020-12-02 09:34[facility] Vital Signs Date TimeVital SignValuePerforming NzebqkmocRxyxzbqk37-13-3341 08:39-0500Body mass index (BMI) [Ratio]26.29 kg/q8Pjwiq PolyPid DO Work Phone: [phone] [place], [place] [address]Qxwspzeyek45-47-9207 08:39-0500Body .67 kgCorey [employer] Work Phone: [phone] [place], [place] [address]Ktpnystefd54-33-4439 08:39-0500Diastolic blood cltuslxd31 mm[Hg]SantoshGeoVario Work Phone: [phone] [place], [place] [address]Yzecaretcd74-96-9400 08:39-0500Systolic blood ehakowhm546 mm[Hg]SantoshGeoVario Work Phone: [phone] [place], [place] [address]Mpignwdoco21-38-2674 08:35-0400Body mass index (BMI) [Ratio]26.71 kg/j7Hokct Joanna [employer] Work Phone: [phone] HospitalSfamsbioii94-11-2503 08:35-0400Body kpmson31.8 kg SantoshGeoVario Work Phone: [phone] HospitalPblitcjsfy01-73-5639 08:35-0400Diastolic blood uryqvmap13 mm[Hg]Santosh Joanna DO Work Phone: [phone] [place], [place] [address]Bxmpmiguhf17-07-5359 08:35-0400Systolic blood rolaewts302 mm[Hg]Santosh Joanna DO Work Phone: [phone] [place], [place] [address]Gvqrcvkvfv22-91-8644 11:20-0400Body mass index (BMI) [Ratio]25.38 kg/b4Umkoy Joanna DO Work Phone: [phone])[facility] [place], [place] [address]Ygwaryndbo10-10-4384 11:20-0400Body sgzrxu74.17 kgCorey Joanna DO Work Phone: [phone])[address] [place] [address]-13-2025 11:20-0400Diastolic blood ooaxnbfo99 mm[Hg]Santosh Joanna DO Work Phone: [phone] [place], [place] [address]Sxtpiehnqi24-71-8962 11:20-0400Systolic blood gwvlscva966 mm[Hg]Santosh Joanna DO Work Phone: [phone] [place], [place] 4732409-22-2025 10:23-0400Body mass index (BMI) [Ratio]24.79 kg/m2Amy Brea PA Work Phone: [phone])[facility] [place], [place] [address]Olpncescwi63-57-3744 10:23-0400Body zneivk40.59 kgAmy Brea PA Work Phone: [phone])[facility] [place], [place] [address]Pweczkukwt63-57-8810 10:23-0400Diastolic blood jxqiutdl17 mm[Hg]Erum Guidry PA Work Phone: [phone])[facility] [place], [place] [address]Srpcxbeajp04-85-6601 10:23-0400Systolic blood ogzqaobw945 mm[Hg]Erum Guidry PA Work Phone: [phone] [place], [place] [address]Yrycfttbsy57-16-0631 11:45-0400Body mass index (BMI) [Ratio]23.15 kg/w6Vupul Joanna DO Work Phone: 1(137)[facility] [place], [place] [address]Wbfrvemnnk75-49-1512 11:45-0400Body mlmzas80.1 kg Santosh Joanna DO Work Phone: 1(033)[facility] [place], [place] [address]Vygwmshwwz97-99-9487 11:45-0400Diastolic blood hburmbcm05 mm[Hg]Santosh Joanna DO Work Phone: [facility] HospitalJvpfzrqbia30-39-9386 11:45-0400Systolic blood egifepwg307 mm[Hg]Santosh Bhaktao DO Work Phone: [phone]08-18-2025 11:51-0400Body .1 cmJacklyn Campos MD Work Phone: [phone])[address] [place], [place] 5982908-18-2025 11:51-0400Body mass index (BMI) [Ratio]23.03 kg/x3OvlevsenJacklyn Campos MD Work Phone: [phone])[address] [place], [place] 5982908-18-2025 11:51-0400Body .78 kgJacklyn Campos MD Work Phone: [phone])[address] [place], [place] 5982908-18-2025 11:51-0400Diastolic blood dgjogvgv34 mm[Hg]Jacklyn Campos MD Work Phone: 1(253)[address] [place], [place] 5982908-18-2025 11:51-0400Heart rate 94 /minJacklyn Campos MD Work Phone: [phone] [place], [place] 5982908-18-2025 11:51-0400Systolic blood qwwmiixc00 mm[Hg]Jacklyn Campos MD Work Phone: [phone] [place], [place] 5982907-28-2025 10:13-0400Body mass index (BMI) [Ratio]22.38 kg/m2Erum HAYS Work Phone: [phone] [place], [place] [address]Xpvvsvrjoh19-09-6672 10:13-0400Body pylyvn69.01 kgErum HAYS Work Phone: [phone] [place], [place] [address]Esjqkpmpxc15-44-0590 10:13-0400Diastolic blood encwbbmg14 mm[Hg]Erum HAYS Work Phone: [phone] [place], [place] [address]Xoeiawsdkx27-49-7619 10:13-0400Systolic blood vpgazsfa432 mm[Hg]Erum HAYS Work Phone: [facility] HospitalUrkoclwlfx63-69-4433 11:10-0400Body mass index (BMI) [Ratio]22.1 kg/x7Qnjmp Joanna DO Work Phone: [phone] [place], [place] [address]Kiyetmjzit24-40-7006 11:10-0400Body eoneea52.24 kgCorey Joanna DO Work Phone: 1(701)[facility] [place], [place] [address]Ujfvaniiik50-79-6927 11:10-0400Diastolic blood fauzyxfv80 mm[Hg]Santosh Joanna DO Work Phone: 1(590)[facility] [place], [place] [address]Ncruhlvfyy42-88-0904 11:10-0400Systolic blood rosrbpfg380 mm[Hg]Santosh Joanna DO Work Phone: [phone] [place], [place] 4732405-30-2025 10:00-0400Body mass index (BMI) [Ratio]22.86 kg/m2[facility]05-30-2025 10:00-0400Body ubwdlo30.32 kgSaint [facility]05-30-2025 10:00-0400Diastolic blood hcdpekal25 mm[Hg][facility]05-30-2025 10:00-0400Systolic blood wvjvnbok069 mm[Hg][facility]09-23-2024 14:19-0400Body mass index (BMI) [Ratio]21.15 kg/n3Brepk Joanna DO Work Phone: 1(751)[facility] [place], [place] [address]Pqtmwfpsaj28-41-0832 14:19-0400Body pcazir72.66 kgCorey Joanna DO Work Phone: 1(142)277-[facility] CityB[facility] HospitalQrkgjnhjvk02-00-3435 14:19-0400Diastolic blood mm[Hg]Santosh Joanna DO Work Phone: [facility] HospitalHbxgayvnmr81-06-5207 14:19-0400Systolic blood mqoclcfi323 mm[Hg]Santosh Joanna DO Work Phone: [phone] [place], [place] [address]Rsegghiemo99-69-3708 15:43-0400Blood Pressure Eladia Thornton [phone]-YzxwdSelect [facility] Tnxl67-96-3651 15:43-0400Diastolic blood jejypyba83 mm[Hg]Ya Thornton 988-2434Fhrcjl-Zjdam[address] [place], [place] 6285305-20-2024 15:43-0400Heart nmci811 /Waqar Thornton 257-2820Lwjadl-Pauyw[address] [place], [place] 6285305-20-2024 15:43-0400Respiratory rate18 /Waqar Thornton 781-5579Fhidym-Kwvqm[address] [place], [place] 6285305-20-2024 15:43-6807CbU6% (BldA) [Mass fraction]100 %Ya Thornton [address] [place], [place] 7186005-20-2024 15:43-0400Systolic blood gieeliop880 mm[Hg]Ya Thornton [address] [place], [place] 7186012-20-2023 07:21-0500Blood Pressure LocationYa Thornton [address] [place], [place] 7186012-20-2023 07:21-0500Body mcbxzudxgiw99.52 [degF]Ya Thornton [address] [place], [place] 7186012-20-2023 07:21-0500Diastolic blood klsfhami34 mm[Hg]Ya Thornton [address] [place], [place] 7186012-20-2023 07:21-0500Heart rate91 /Waqar Thornton [address] [place], [place] 7186012-20-2023 07:21-0500Respiratory rate18 /Waqar Thornton [address] [place], [place] 7186012-20-2023 07:21-7922UiT3% (BldA) [Mass fraction]100 %Ya Thornton [address] [place], [place] 7186012-20-2023 07:21-0500Systolic blood blldyxez704 mm[Hg]Ya Thornton 477-4108Nixgie-[facility]yCl[facility] Hospital12-04-2023 12:53-0500Blood Pressure LocationYa Thornton 349-0817Xpcquv-Hqqcy[address] [place], [place] 6285312-04-2023 12:53-0500Diastolic blood wvynmzew59 mm[Hg]Ya Thornton 947-4585Nmhcvb-Dpapp[address] [place], [place] 6285312-04-2023 12:53-0500Heart zemn202 /Waqar Thornton 174-6187Hrommx-Iauhm[address] [place], [place] 6285312-04-2023 12:53-0500Respiratory rate18 /Waqar Thornton 812-9222Yxaexe-Gaepf[address] [place], [place] 6285312-04-2023 12:53-6313RjC6% (BldA) [Mass fraction]99 %Ya Thornton 802-1961Xmkijy-Tbynn[address] [place], [place] 6285312-04-2023 12:53-0500Systolic blood srfrwceg366 mm[Hg]Ya Thornton 825-8657Fhfrmv-Tcxej[address] [place], [place] 6285309-12-2023 12:10-0400Blood Pressure LocationDaniel Gray 321-1866Gmeqqx-RbpvgBethesda North Hospital09-12-2023 12:10-0400Body eitfexscrsc84.52 [degF]Daniel Gray 521-1292Bdjlhx-TrctiBethesda North Hospital09-12-2023 12:10-0400Diastolic blood uasrrfxm59 mm[Hg]Daniel Gray 560-6210Atsrgw-NjwvjBethesda North Hospital09-12-2023 12:10-0400Heart rate97 /Hans Gray 241-1749Vaicqr-AytihBethesda North Hospital09-12-2023 12:10-0400Systolic blood aeyeggph360 mm[Hg]Daniel Gray 885-2522Qtxdir-HtwamBethesda North Hospital08-24-2023 09:20-0400Blood Pressure LocationYa Thornton 951-9350Lgvnia-Tuall[address] [place], [place] 6285308-24-2023 09:20-0400Body omrovgvefqa80.06 [degF]Yasampson Thornton 200-5537Hdrbih-Okhgi[address] [place], [place] 6285308-24-2023 09:20-0400Diastolic blood hfirfwyl12 mm[Hg]Ya Thornton 430-9733Ybojrg-Ppjgg[address] [place], [place] 6285308-24-2023 09:20-0400Heart rate76 /minEgerald Thornton 592-9377Okjckw-Nmbnd[address] [place], [place] 6285308-24-2023 09:20-4130MpD4% (BldA) [Mass fraction]98 %Yasampson Thornton 466-0224Jnbbsh-Qlqhl[address] [place], [place] 6285308-24-2023 09:20-0400Systolic blood vjfppwyx689 mm[Hg]Ya Thornton 607-2989Nyjlmd-Dvzol[address] [place], [place] 6285302-13-2023 14:14-0500Blood Pressure LocationRitu Desai 246-1873Fluybm-Xlbxo[address] [place], [place] 6285302-13-2023 14:14-0500Body goattbraamx57.7 [degF]Ritu Desai 380-5089Wejuey-Oujma[address] [place], [place] 6285302-13-2023 14:14-0500Diastolic blood ieihsjpb02 mm[Hg]Ritu Desai 664-8412Ikbumh-Hcaqd[address] [place], [place] 6285302-13-2023 14:14-0500Heart rate71 /minRitu Desai 173-8818Ipbini-Sengi[address] [place], [place] 6285302-13-2023 14:14-7056AeE6% (BldA) [Mass fraction]98 %Ritu Desai 992-6524Csmrcl-XifewCleveland Clinic Primary Apgy48-98-4567 14:14-0500Systolic blood kucsxtvi475 mm[Hg]Ritu Moralesell 926-5609Ynokgy-QavxoCleveland Clinic Primary Ivex18-26-4521 02:06-0400Body oymagh72.968 kgDR [facility] Oste[facility] ClinicComment on above:Performed By: #### AFPMAT #### [facility] [address] [address] [address] Rima Charles Encounters Encounter DateEncounter TypeCare ProviderFacilityStart: 01-28-2025 End: 84-68-1444Lgxvcs flowsheetCorey Joanna DO Work Phone: [facility] [place] [facility]BGYNStart: 01-28-2025 End: 43-15-9231Srihmx flowsheetCorey Joanna DO Work Phone: [facility] [place] [facility]BGYNStart: 01-28-2025 End: 64-54-6494Ryolnlce flow sheetCorey Joanna DO Work Phone: [facility] [place] OBGYNComment on above:Third trimester ([facility]); 32 weeks gestation of ([facility]); Thyroid disease; History of prior with IUGR ; Hypothyroidism, unspecified typeStart: 01-28-2025 End: 24-65-8857kvqefhnmzjCBQAV FAZIONot AvailableStart: 01-14-2025 End: 28-29-3363Syobrx flowsheetCorey Joanna DO Work Phone: [facility] [place] [facility]BGYNStart: 01-14-2025 End: 22-95-6436Vubepq flowsheetCorey Joanna DO Work Phone: [facility] [place] [facility]BGYNStart: 01-14-2025 End: 50-86-7210Cnirqpso flow sheetCorey Joanna DO Work Phone: [facility] OBGYNComment on above:Third trimester ([facility]); 30 weeks gestation of ([facility])Start: 01-14-2025 End: 83-49-7942ykikxfttmnQSYOR FAZIONot AvailableStart: 31-81-2792elnzbgdttt Martaishmael RickettsmarcusFacility:[facility] PCStart: 12-31-2024 End: 14-38-8855Oodgotqt flow sheetCorey Joanna DO Work Phone: [facility] OBGYNComment on above:Third trimester ([facility]); 28 weeks gestation of ([facility])Start: 12-31-2024 End: 67-99-3906irrawfdjlvTMFRH FAZIONot AvailableStart: 12-12-2024 End: 05-18-2086Enwpvjeem Result EncounterErum HAYS Work Phone: NOOG External Department UnsolicitedStart: 12-12-2024 End: 83-41-6586Uqkinuggk Result EncounterErum HAYS Work Phone: NOUQ External Department UnsolicitedStart: 12-11-2024 End: 93-74-4124vgndcfzrjkQLJQI R [facility] HOSPITALTaurusMedisunny Burton HospitalStart: 12-11-2024 End: 83-40-6973Jfhzaeqmj Result EncounterErum HAYS Work Phone: NOZG External Department UnsolicitedStart: 12-11-2024 End: 01-75-8078Hstetxdio Result EncounterErum HAYS Work Phone: NONQ External Department UnsolicitedStart: 12-10-2024 End: 59-94-2747Dsbsyv flowsheetErum HAYS Work Phone: [facility] [place] [facility]BGYNStart: 12-10-2024 End: 10-87-8554Yqkxlk oliviaheetErum HAYS Work Phone: [facility] [place] [facility]BGYNStart: 12-10-2024 End: 90-88-6995Zrzqnyxz flow sheetErum HAYS Work Phone: NOL[facility] [place] OBGYNComment on above:Size of fetus inconsistent with dates in second trimester ([facility]) (Primary Dx); Second trimester ([facility]); 25 weeks gestation of ([facility]); Diabetes mellitus screeningStart: 12-10-2024 End: 60-85-9080ptyqfmxyjeAHS RAMFORTINONot AvailableStart: 11-27-2024 End: 50-41-7933vohzjwlxwxKWKCE R [facility] HospitalStart: 11-20-2024 End: 67-69-9554isoctjrvnvUSPDU R [facility] HospitalStart: 11-12-2024 End: 43-53-9466Aqofdo flowsheetCorey Joanna DO Work Phone: [facility] [place] [facility]BGYNStart: 11-12-2024 End: 15-17-1462Hsdsbk flowsheetCorey Joanna DO Work Phone: [facility] [place] [facility]BGYNStart: 11-12-2024 End: 06-97-4265Mteebhgy flow sheetCorey Joanna DO Work Phone: [facility] [place] OBGYNComment on above:Hypothyroidism, unspecified type (Primary Dx); Second trimester ([facility]); 21 weeks gestation of ([facility]); Vaginal discharge; STD exposureStart: 11-12-2024 End: 93-79-3040ycsyxzxkljSZLPP FAZIONot AvailableStart: 11-07-2024 End: 08-71-4161Idzwnnnnv Result EncounterCorey Joanna DO Work Phone: noms External Department UnsolicitedStart: 11-07-2024 End: 59-49-6377Mupjobrru Result EncounterCorey Joanna DO Work Phone: noms External Department UnsolicitedStart: 11-06-2024 End: 37-77-1266Tphzuu Sesar Smith RNMaternal- Medicine at [facility] HospitalComment on above: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 trimester (Primary Dx); History of prior with IUGR ; History of premature rupture of membranesStart: 11-05-2024 End: 84-74-8922Hhmaic consultation new/estab patient 60 Jesus Campos MD Work Phone: [phone]-Ibrop [facility] Comment on above:20 weeks gestation of (Primary Dx); Low-lying placenta; 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 trimester; History of prior with IUGR ; Family history of autism; History of gestational diabetes in prior , currently ; History of prior with short cervix, currently ; History of premature rupture of membranesStart: 11-05-2024 End: 03-19-5269vykmhpiighKWZJL [facility] HospitalStart: 10-15-2024 End: 68-81-7223Boqmvw flowsLizzie HAYS Work Phone: [facility] [place] [facility]BGYNStart: 10-15-2024 End: 42-97-0850Kbewla David HAYS Work Phone: [facility] [place] OBGYNStart: 10-15-2024 End: 85-77-6113Skdzybprq Result EncounterErum HAYS Work Phone: noms External Department UnsolicitedStart: 10-15-2024 End: 68-49-3760Unaoxofu flow Mahamed HAYS Work Phone: NOGP [facility] OBGYNComment on above:Second trimester ([facility]); 17 weeks gestation of ([facility])Start: 10-15-2024 End: 37-02-6900rerysxktqwTQD RAMEYNot AvailableStart: 10-02-2024 End: 72-90-5740Rlqznekxk Result EncounterCorey Joanna DO Work Phone: noms External Department UnsolicitedStart: 10-02-2024 End: 92-16-0198Djpjzntgo Result EncounterCorey Joanna DO Work Phone: noms External Department UnsolicitedStart: 09-24-2024 End: 49-81-6222Ueata Rob Campos MD Work Phone: [phone]-Pvkwm [facility] Start: 09-24-2024 End: 84-45-8234Vhbiqmdsb Result EncounterCorey Joanna DO Work Phone: noms External Department UnsolicitedStart: 09-24-2024 End: 06-52-8858Hpbebiohu Result EncounterCorey Joanna DO Work Phone: noms External Department UnsolicitedStart: 09-20-2024 End: 36-22-4531Tixwow Kashif Gutierrez RNMaternal- Medicine at [facility] HospitalComment on above:Thyroid disease affecting (Primary Dx); History of prior with IUGR newbornStart: 09-17-2024 End: 74-60-0923Urrwub flowsheetCorey Joanna DO Work Phone: noms BCP OBStart: 09-17-2024 End: 42-49-7678Xicovr flowsheetCorey Joanna DO Work Phone: noms BCP OBStart: 09-17-2024 End: 25-42-1427bsdvrtbuwgEOQBT FAZIONot AvailableStart: 09-17-2024 End: 14-97-8480Moupuugx flow sheetCorey Joanna DO Work Phone: noms BCP OBComment on above:13 weeks gestation of ([facility] Second trimester ([facility]); Thyroid disease ; History of prior with IUGR ; Diabetes mellitus screeningStart: 09-12-2024 End: 18-64-4620Mimnvzkvv Result EncounterCorey Joanna DO Work Phone: noms External Department UnsolicitedStart: 09-12-2024 End: 53-17-8997Knqnlgzrs Result EncounterCorey Joanna DO Work Phone: noms External Department UnsolicitedStart: 08-21-2024 End: 23-93-2243Vjhddplxf Result EncounterCorey Joanna DO Work Phone: NOMS External Department UnsolicitedStart: 08-21-2024 End: 39-05-5693Cgfcgmnvo Result EncounterCorey Joanna DO Work Phone: NOMS External Department UnsolicitedStart: 08-17-2024 End: 22-34-5785Vmxdum outpatient visit 5 minutesNoms Bcp Ob Joanna NurseNOMS BCP OBComment on above:GA: 8k0zCanpe: 08-17-2024 End: 37-44-3651qwggvoenkcMKXWU FAZIONot AvailableStart: 07-09-2024 End: 15-26-5674rdukdzefxlChhhrbEric AlmanzarFacility:[facility] PCStart: 07-05-2024 End: 95-23-8946gfaaoavbvfWkntg J SosinskiFacility:[facility] PCStart: 07-04-2024 End: 08-31-8273swdoyatwafAzjgnlEric AlmanzarFacility:FTMCStart: 07-04-2024 End: 17-81-3959Bceidpw encounter Patsy Almanzar [facility] Start: 05-14-2024 End: 77-09-2942tuxdydxsifUFFCVS E COSTINAkron [facility]'s Interm[facility] Healthcaretart: 05-14-2024 End: 75-69-9226Hansicxsnw hospital visit by Krys Jurado MD Work Phone: [facility] LabComment on above:Family history of autismStart: 12-12-2023 End: 34-89-8357Njefps flowsheetCorey Joanna DO Work Phone: [facility] BCP OBStart: 12-12-2023 End: 17-13-7602Njflnp flowsheetCorey Joanna DO Work Phone: [facility] BCP OBStart: 12-12-2023 End: 47-38-9159Ttpzebxjb Result EncounterCorey Joanna DO Work Phone: noMS External Department UnsolicitedStart: 12-12-2023 End: 14-80-7090Wpnbtld encounter procedureCorey Joanna DO Work Phone: [facility] Work Phone: Start: 12-12-2023 End: 77-56-4739Xjtfhesc preventive med est patient 18-39 yrsCorey Joanna DO Work Phone: NOPU BCP OBComment on above:Well woman exam with routine gynecological examStart: 09-07-2023 End: 21-60-9273eyzlshuhdzOuintglog L ClarkFacility:FTMCStart: 09-07-2023 End: 93-43-7529Tdbvbbs encounter procedureYa Thornton [facility] Start: 08-08-2023 End: 36-08-1170sxcihjnvrfFimuuxuih L ClarkFacility:[facility] PCStart: 08-08-2023 End: 00-39-2617Zhgrewq encounter Rosina Thornton [phone]-GcqgsCleveland Clinic Primary Care Start: 07-12-2023 End: 62-38-9870ctutxusuyoXCXRPXGQ E PERRYFacility:EU ueStart: 07-12-2023 End: 35-11-4657Icmuhmr encounter procedureJENNIFER E SUKH [facility] Centerue start: 05-16-2023 End: 09-41-8473zqeuxkfnlwCeyuubtoc L ClarkFacility:FTMCStart: 05-16-2023 End: 75-17-6885pmkenxbcjzVurozhopo L ClarkFacility:[facility] PCStart: 04-01-2023 ambulatoryYa ThorntonFacility:EU BellevueStart: 03-24-2023 End: 90-87-1040jcwwszsmysYuwdwrfjk L ClarkFacility:FTMCStart: 03-24-2023 End: 99-19-3139Xebvxra encounter procedureYa Thornton [facility] Start: 03-22-2023 End: 66-35-1679wuyibloitiGmktmisee L ClarkFacility:FTMCStart: 03-22-2023 End: 50-13-8155Jaxckqd encounter procedureYa Thornton [facility] Start: 03-09-2023 End: 20-15-0527Dfo Drop offYa Thornton [facility] start: 03-09-2023 End: 50-69-1559dutbggxjunTiwdahlvq L ClarkFacility:FTMCStart: 03-09-2023 End: 59-33-3306Ftdqrfn encounter procedureYa Thornton [phone]-AzpdgC[facility] Start: 02-21-2023 End: 90-70-2098Mwj Drop offYa Thornton [facility] Start: 02-21-2023 End: 66-46-1143gavnbekfygXbzbpcyyo L ClarkFacility:FTMCStart: 02-21-2023 End: 95-50-3925Gcmuqxn encounter procedureYa Thornton [phone]-KrjroCleveland Clinic [facility] Start: 11-30-2022 End: 29-74-5514vybngjynvhEzqk A SteinmetzFacility:[facility] DHStart: 11-30-2022 End: 48-86-5372Iigligk encounter procedureDaniel Gray [phone]-QuazlCleveland Clinic [facility] Start: 09-49-6705mwclnljpcvMfavznycu Clark Facility:[facility] DHStart: 11-11-2022 End: 15-46-7668jldbelwnifYwjpiioua L ClarkFacility:[place] PCStart: 11-11-2022 End: 34-72-0513Keuporu encounter procedureYa Thornton [phone]-UyjtaCleveland Clinic Primary Care Start: 10-08-2022 End: 76-56-3295mccqkoaimaYceqfguxu L ClarkFacility:MCStart: 10-08-2022 End: 05-75-1813qxpeshrwszKllyvngmo L ClarkFacility:[place] PCStart: 05-03-2022 End: 34-41-2828Prjnbiq encounter procedureRitu Desai [phone]-UmehwCleveland Clinic Primary Care Start: 10-19-2021 End: 61-31-7964ofilbfixalXM SANTOSH FAZIOFacility:T7Cfvdi: 10-17-2021 End: 03-51-3973zvmkxktednMG SANTOSH FAZIOFacility:S3Osqav: 15-46-9404uhqvsgteuqLZ SANTOSH FAZIOFacility:O8Etcnw: 07-13-2021 End: 14-57-4070yqkhcqhdsyAH DOCTOR MISCFacility:D8Zlsnf: 05-06-2021 End: 72-17-6871lgwftlrboqBY ERASMO KARASIKFacility:B1Vsxok: 02-24-2021 End: 92-87-0911xfiftvevjkBP SANTOSH FAZIOFacility:M4Aiohq: 01-13-2021 End: 34-81-5090tiattjnyxtJO SANTOSH FAZIOFacility:I6Oufxu: 12-09-2020 End: 81-04-9434zytyklvccpPP SANTOSH FAZIOFacility:E1Rjfhc: 12-02-2020 End: 68-67-4811cxpmtxedodJW SANTOSH FAZIOFacility:H1 Procedures DateProcedureProcedure DetailPerforming ClinicianStart: 53-16-3579Daxiw dip stick/tablet rgnt non-auto w/o micrscpCorey Joanna DO Work Phone: Start: 97-91-8123Hcomp dip stick/tablet rgnt non-auto w/o micrscpAmy Brea HAYS Work Phone: Start: 51-95-0959Csesf dip stick/tablet rgnt non-auto w/o micrscpCorey Joanna DO Work Phone: Start: 37-36-9057JVIMDOD TOLERANCE 3 HOURAmy Brea HAYS Work Phone: Start: 25-76-4936BNG CBC WITH AUTO DIFFAmy Brea HAYS Work Phone: Start: 91-96-1513Kbxbf dip stick/tablet rgnt non-auto w/o micrscpAmy Brea HAYS Work Phone: Start: 03-70-7001Kyqck dip stick/tablet rgnt non-auto w/o micrscpCorey Joanna DO Work Phone: Start: 21-53-8308CKT THYROID STIM HORMONECorey Joanna DO Work Phone: Start: 75-91-4331NUJ, SERUM, OPEN SPINA BIFIDAAsusanne HAYS Work Phone: Start: 69-58-5162Tlnek dip stick/tablet rgnt non-auto w/o micrscpCorey Joanna DO Work Phone: Start: 55-46-8406FALEQOT 1 HOURCorey Joanna DO Work Phone: Start: 76-50-4795UXD MISCELLANEOUS TESTCorey Joanna DO Work Phone: Start: 18-14-6634NMM MISCELLANEOUS TESTCorey Joanna DO Work Phone: Start: 99-45-2684Skgycnoobarry Campos MD Work Phone: Start: 20-80-8162EZU W Auto Differential panel - Blood Santosh R Joanna DO Work Phone: Start: 59-32-1083Jiwp scrn 1+ class nonchromoNot In System Ref ProvStart: 44-31-5805Ktkqffemka glycosylated e9oUnhcd R Joanna DO Work Phone: Start: 98-67-2813Mxoqgdsif c antibodyNot In System Ref ProvStart: 40-04-9681GVS 1&2 AB/AG SCREEN (P24 AG)Not In System Ref ProvStart: 61-24-5640Juts ia hepatitis b surface antigenNot In System Ref ProvStart: 77-82-6698TKYWDETV TOTAL(UNKNOWN SYPHILIS STATUS)Not In System Ref ProvStart: 43-36-2947FOYH AND SCREENNot In System Ref ProvStart: 71-16-0833INT CBC WITH AUTO DIFFCorey JoannaHeart Buddy Work Phone: Start: 08-17-2024 End: 88-85-4850Fbrny dip stick/tablet rgnt non-auto w/o micrscpCorey JoannaHeart Buddy Work Phone: Start: 39-54-3151YTH,APTIMA HPV,AGE GDLNCorey JoannaHeart Buddy Work Phone: Start: 16-26-2445Iitch depression screening assessment Jacklyn Campos MD Work Phone: None (qualifier value)Ritu Desai Plan of Treatment DateCare ActivityDetailAuthorStart: 77-05-0946VMeN,Tdap and Td Vaccines (8 - Td or Tdap)DTaP,Tdap and Td Vaccines (8 - Td or Tdap)[facility] HospitalDealdrive SystemStart: 11-06-2025 End: 07-91-8172AV MFM with or without consultUS MFM with or without consult Imaging Routine 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 trimester History of prior with IUGR History of premature rupture of membranes Expected: 11/06/2025 (Approximate), Expires: 11/06/2025[facility] Work Phone: comment on above:Expected: 11/06/2025 (Approximate), Expires: 11/06/2025Start: 45-25-1718Lsvex BMI ScreeningAdult BMI Screening [facility] SystemStart: 75-01-1233Uueaeqa ScreeningTobacco Screening [facility] SystemStart: 02-13-2025 End: 72-44-2477Pjcxrug encounter uxrdnnwdc56/26/2025 10:50 AM EST Routine [facility] [address] [place] [phone] Santosh Marshall DO [address] [place] [address] [facility] [place] [facility]BGYNStart: 02-04-2025 End: 88-21-7419Jnqztyhrzcku / ancillary services bihkcrjhvp83/17/2025 8:00 AM EST Ancillary Procedure [facility] [address] [place] [place] [address] [facility] [place] [facility]BGYNStart: 01-28-2025 End: 13-18-7910XB biophysical profile w non stress testUS biophysical profile w non stress test Imaging Routine Thyroid disease History of prior with IUGR Hypothyroidism, unspecified type Expected: 01/28/2025 (Approximate), Expires: 07/28/2025[facility] Work Phone: comment on above:Expected: 01/28/2025 (Approximate), Expires: 07/28/2025Start: 01-28-2025 End: 03-73-6283MQ for pregnancyUS OB follow up transabdominal approach Imaging Routine Thyroid disease History of prior with IUGR Hypothyroidism, unspecified type Expected: 01/28/2025, Expires: 05/28/2025[facility] HealthcareComment on above:Expected: 01/28/2025, Expires: 05/28/2025Start: 01-28-2025 End: 74-34-8294Ddhjpzo encounter guxmzsdby95/10/2025 8:30 AM EST Routine [facility] [address] [place], [id number] Santosh Marshall, DO [address] [place] [address] ArrivedNOMS [place] OBGYNComment on above:ArrivedStart: 01-14-2025 End: 70-18-8115Jlibizp encounter procedureNOMS Augustina OBGYNComment on above: ArrivedStart: 01-01-2025 End: 86-96-5978Aqsnzzk encounter procedureNOMS BCP OBStart: 12-31-2024 End: 51-87-8151Bzxekxb encounter myhciaslg44/13/2025 11:00 AM EDT Routine [facility] [address] [place] [address] Santosh Marshall, DO [address] [place] [address] [facility] [place] [facility]BGYNStart: 12-31-2024 End: 52-72-0343Imiodaokdafg / ancillary services tntbiydmbd38/13/2025 10:30 AM EDT Ancillary Procedure [facility] [address] [place] [place] [address] [phone] [facility] OBGYNStart: 12-17-2024 End: 26-34-5334Guwvsic encounter hamgnrrzw28/29/2025 3:00 PM EDT Office Visit [facility] [address] [place] [place] [address] Santosh Marshall, [address] [place] [address] [facility] OBStart: 12-11-2024 End: 86-26-8348Yrquogc encounter zjeqqffxw56/23/2025 2:15 PM EDT Appointment [facility] - Ultrasound [address] [place] [address] [phone] Children's Hospital [facility] - UltrasoundStart: 12-10-2024 End: 89-78-4444ZHG panel - Blood by Automated countCBC Lab Routine Diabetes mellitus screening Expected: 12/10/2024 (Approximate), Expires: 12/10/2025[facility] Work Phone: comment on above:Expected: 12/10/2024 (Approximate), Expires: 12/10/2025Start: 12-10-2024 End: 89-53-3205Amlalzymjhp of glucose 1 hour after glucose challenge for glucose tolerance testGlucose tolerance, 1 hour Lab Routine Diabetes mellitus screening Expected: 12/10/2024 (Approximate), Expires: 12/10/2025[facility] HealthcareComment on above:Expected: 12/10/2024 (Approximate), Expires: 12/10/2025Start: 12-10-2024 End: 68-47-4113NE for pregnancyUS OB follow up transabdominal approach Imaging Routine Size of fetus inconsistent with dates in second trimester ([facility]) Expected: 12/10/2024, Expires: 04/11/2025[facility] HealthcareComment on above: Expected: 12/10/2024, Expires: 04/11/2025Start: 12-10-2024 End: 11-34-5716Fbawtcf encounter procedureNOMS [place] OBGYNComment on above: ArrivedStart: 11-27-2024 End: 86-26-0151Heynozl encounter /09/2025 3:15 PM EDT Appointment [facility] - Ultrasound [address] [place] [address] [phone] Surgical Hospital [facility] - UltrasoundStart: 11-20-2024 End: 09-92-2680Nygpmky encounter wozhtsfhl10/02/2025 3:45 PM EDT Appointment [facility] Imaging [address] [place] [address] [phone] Hospital US ImagingStart: 11-19-2024 Influenza vaccinationInfluenza VaccineQuorum Healthtart: 11-12-2024 End: 68-01-8293Uqpszfa encounter procedureUMESH [place] OBGYNComment on above: ArrivedStart: 11-05-2024 End: 10-29-5970Powyrhy encounter procedureCincinnati VA [facility] Center US ImagingStart: 10-21-2024 End: 84-63-4214JN MFM with or without consultUS [facility] with or without consult Imaging Routine Thyroid disease affecting History of priorpregnancy with IUGR Expected: 10/21/2024 (Approximate), Expires: 09/20/2025 [facility] Work Phone: comment on above:Expected: 10/21/2024 (Approximate), Expires: 09/20/2025Start: 10-15-2024 End: 95-89-2775Wivvu fetoprotein, maternalAlpha fetoprotein, maternal Lab Routine 17 weeks gestation of ([facility]) Expected: 10/15/2024 (Approximate), Expires: 12/16/2024[facility] Work Phone: comment on above:Expected: 10/15/2024 (Approximate), Expires: 12/16/2024Start: 10-15-2024 End: 00-38-5540Cloywyk encounter procedureNOMS CASSANDRA OBComment on above:Arrived Start: 09-17-2024 End: 09-86-7894Zzpnimrfoby of glucose 1 hour after glucose challenge for glucose tolerance testGlucose tolerance, 1 hour Lab Routine Diabetes mellitus screening Expected: 09/17/2024 (Approximate), Expires: 09/17/2025[facility] Work Phone: comment on above:Expected: 09/17/2024 (Approximate), Expires: 09/17/2025Start: 09-17-2024 End: 51-84-1509Cmrribw encounter ulpriunaz24/30/2025 10:50 AM EDT Routine [facility] [address] [place] [phone] Santosh Marshall, DO [address] [place] [address] [facility] OBStart: 08-17-2024 End: 68-28-2361NKN/RhABO/Rh Lab Routine Missed menses , unspecified gestational age Expected: 08/17/2024 (Approximate), Expires: 08/17/2025[facility] HealthcareComment on above:Expected: 08/17/2024 (Approximate), Expires: 08/17/2025Start: 08-17-2024 End: 44-56-3960Ncvyi type and Indirect antibody screen panel - BloodType and screen Lab Routine Missed menses , unspecified gestational age Expected: 08/17/2024 (Approximate), Expires: 08/17/2025[facility] HealthcareComment on above:Expected: 08/17/2024 (Approximate), Expires: 08/17/2025Start: 08-17-2024 End: 87-06-7187Bkojj of abuse panel - Urine by Screen methodRapid drug screen, urine Lab Routine , unspecified gestational age Encounter for supervision of normal first in first trimester Expected: 08/17/2024 (Approximate), Expires: 08/17/2025[facility] HealthcareComment on above:Expected: 08/17/2024 (Approximate), Expires: 08/17/2025Start: 08-09-2024 End: 53-73-4616XV Pelvis transvaginalUS OB transvaginal Imaging Routine Missed menses Expected: 08/09/2024, Expires: 11/09/2024[facility] Work Phone: comment on above:Expected: 08/09/2024, Expires: 11/09/2024Start: 06-68-5978ZBYNB-19 ( season)COVID-19 ( season)[facility]: 88-61-4846MCM (#1)FLU (#1)[facility]: 42-32-1026Vauqajcjxo ScreeningDepression Screening [facility] SystemStart: 66-88-7245qqwxgllyedRgxmwlaztyIcaisnpe:W9Zwokx: 34-64-2359Kwclyhcolhh observation [Identifier] in Cervix by Cyto stainPap Smear [facility] Systemtart: 38-01-6360Gposnimhv for malignant neoplasm of cervixPap SmearQuorum Healthtart: 46-90-1545Kowrzzvzc B (1 of 3 - 19+ 3-dose series)Hepatitis B (1 of 3 - 19+ 3-dose series)[facility] Start: 73-64-6381Fzhdu BMI ScreeningAdult BMI ScreeningSalem [facility] Medical [facility] Start: 06-59-8715MizH (1 of 2 - MenB 2-Dose Series Bexsero)MenB (1 of 2 - MenB 2-Dose Series Bexsero)[facility]: 75-09-7944FYI (1 - 3-dose series)HPV (1 - 3-dose series)[facility]: 2011 Varicella (1 of 2 - 13+ 2-dose series)Varicella (1 of 2 - 13+ 2-dose series) [facility]: 33-68-7686Qikhwuh ScreeningTobacco Screening [facility] He[facility]htart: 83-95-9278Rguwoha Diphtheria and Pertussis Vaccines (1 - Tdap)Tetanus Diphtheria and Pertussis Vaccines (1 - Tdap)[facility] Systemt[facility]: 19-91-7864XTM (1 of 1 - Standard series)MMR (1 of 1 - Standard series)[facility] HospitalBacteria identified in Urine by Culture Urine culture Microbiology Routine Missed menses Ordered: 08/17/2024[facility] HealthcareComment on above:Ordered: 08/17/2024BC W Auto Differential panel - BloodCBC and differential Lab Routine Missed menses , unspecified gestational age Ordered: 08/17/2024[facility] HealthcareComment on above:Ordered: 08/17/2024HLAMYDIA TRACHOMATIS (GENITO/STI)CHLAMYDIA TRACHOMATIS (GENITO/STI) Lab Routine STD exposure Ordered: 11/12/2024[facility] HealthcareComment on above: Ordered: 11/12/2024ytology Cervical or vaginal smear or scraping studyPap Smear Pathology and Cytology Routine Well woman exam with routine gynecological exam Ordered: 12/12/2023[facility] Healthcare Work Phone: comment on above:Ordered: 12/12/2023 End: 26-61-6150AWM Extraction and [facility] Work Phone: Comment on above:1 Occurrences starting 05/14/2024 until 05/14/2024, 1 completedHemoglobin A1c/Hemoglobin.total in BloodHemoglobin A1c Lab Routine Missed menses , unspecified gestational age Ordered: 08/17/2024[facility] HealthcareComment on above:Ordered: 08/17/2024Hepatitis B virus surface Ag [Presence] in Serum or Plasma by ImmunoassayHepatitis B surface antigen Lab Routine Missed menses , unspecified gestational age Ordered : 08/17/2024[facility] HealthcareComment on above:Ordered: 08/17/2024Hepatitis C virus Ab [Presence] in Serum or Plasma by ImmunoassayHepatitis C antibody Lab Routine Missed menses , unspecified gestational age Ordered: 08/17/2024[facility] HealthcareComment on above:Ordered: 08/17/2024HIV-1/HIV-2 antigen/antibody combination immunoassayHIV-1 and HIV-2 antibodies Lab Routine Missed menses , unspecified gestational age Ordered: 08/17/2024[facility] HealthcareComment on above:Ordered: 08/17/2024Neisseria gonorrhoeae DNA [Presence] in Unspecified specimen by FRANSISCO with probe detectionNeisseria gonorrhea DNA probe, direct Lab Routine STD exposure Ordered: 11/12/2024[facility] HealthcareComment on above:Ordered: 11/12/2024Reagin Ab [Presence] in Serum by RPRRPR Lab Routine Missed menses , unspecified gestational age Ordered: 08/17/2024[facility] HealthcareComment on above:Ordered: 08/17/2024Rubella antibody, IgGRubella antibody, IgG Lab Routine Missed menses , unspecified gestational age Ordered: 08/17/2024 [facility] HealthcareComment on above:Ordered: 08/17/2024SURESWAB(R) ADVANCED VAGINITIS PLUS, TMASURESWAB(R) ADVANCED VAGINITIS PLUS, TMA Pathology and Cytology Routine Vaginal discharge Ordered: 11/12/2024[facility] Work Phone: comment on above:Ordered: 11/12/2024Thyrotropin [Units/volume] in Serum or PlasmaTSH Lab Routine Missed menses , unspecified gestational age Encounter for supervision of normal first in first trimester Ordered: 08/17/2024[facility] HealthcareComment on above:Ordered: 08/17/2024 End: 54-67-4828Seeiwsrlweq [Units/volume] in Serum or PlasmaTSH Lab Routine Hypothyroidism, unspecified type 9 Occurrences starting 11/12/2024 until 11/12/2025[facility] Work Phone: comment on above:9 Occurrences starting 11/12/2024 until 11/12/2025US Pelvis transvaginalUS OB transvaginal Imaging Routine Missed menses 08/17/2024 9:27 AM [facility] Immunizations Immunization DateImmunizationNotesCare NvatkiwjXfcnuckx46-11-2480unygktn toxoid, reduced diphtheria toxoid, and acellular pertussis vaccine, adsorbedNancyzabemonty Thornton [phone]-JuknqClermont County Hospital08-02-2016 meningococcal B vaccine, fully recombinantNancyzabeth Norberto [phone]-QuhoeClermont County Hospital06-27-2016 meningococcal ACWY vaccine, unspecified formulationNancyzabemotny Thornton [phone]-DpwxsClermont County Hospital06-27-2016 meningococcal B vaccine, fully recombinantNancyzabeth Norberto [phone]-ZejtzClermont County Hospital04-04-2011 meningococcal ACWY vaccine, unspecified formulationNancyzabeth Norberto [phone]-NofvoClermont County Hospital04-04-2011 tetanus toxoid, reduced diphtheria toxoid, and acellular pertussis vaccine, adsorbedElizabeth Norberto [phone]-JuimgClermont County Hospital11-12-2009 influenza virus vaccine, unspecified formulationJacklyn Campos MD Work Phone: [phone] [place], [place] [address]107-28-2004DTaP, unspecified formulationElizabeth Norberto [phone]-NlswsClermont County Hospital07-28-2004 measles, mumps and rubella virus vaccineElizadaniel Thornton [phone]-HodkcClermont County Hospital07-28-2004 poliovirus vaccine, unspecified formulationElisampson Thornton [phone]-Wdfms[address] [place], [place] [address]11-15-2000DTaP, unspecified formulationElizadaniel Thornton [phone]-Qjgiw[address] [place], [place] 628[address]11-08-1999 measles, mumps and rubella virus vaccineElizabemonty Thornton [phone]-Ulbbc[address] [place], [place] 628[address]11-08-1999 varicella virus vaccineElizadaniel Thornton [phone]-Bvaeg[address] [place], [place] 6285307-23-1999DTaP, unspecified formulationElisampson Thornton [phone]-Wtaaw[address] [place] [address] Primary Jaen63-86-4883YEnG, unspecified formulationElizadaniel Thornton [phone]-Vfroe[address] [place] [address] Primary Wkuk99-32-9944RDkY, unspecified formulationYa Thornton [phone]-Meiqs[address] [place], [place] [address]28[address]10-31-1998 hepatitis B vaccine, pediatric or pediatric/adolescent dosageElizadaniel Thornton [phone]-IvcutCleveland Clinic Primary CareNEGATED: Highlighted row has not occurred!13-41-5884eiesawfbk virus vaccine, unspecified formulationDaniel Gray [phone]-SefeqCleveland Clinic Digestive HealthNEGATED: Highlighted row has not occurred!06-58-9342lhjpvnncd virus vaccine, unspecified formulationRitu Desai [phone]-NvhyeCleveland Clinic Primary Care Payers DatePayer CategoryPayerPolicy [id number] [id number] - [id number] [id number] Health [id number] 2023Medicaid [facility] MEDICAID [id number] Care Other (unspecified)[employer] [id number] 2.840.1.146937.3.57[id number] 2.160.1.656160.3.579.2.44755-14-5663Hoybmxj3346602 2.0.1.713598.3.579.2.98547-00-1206Ozrfvfj5523336 2.840.1.908458.3.579.2.09328-18-7930Turomep5853332 2.840.1.984220.3.579.2.94420-08-0946Lylztix0772001 2.0.1.893658.3.579.2.31160-95-2272Srohgwm4097450 2.0.1.987878.3.579.2.63689-48-4517Cdscwou3197297 2.840.1.101243.3.579.2.20353-33-2311Ozsnkxn7378006 2.840.1.976189.3.579.2.03278-55-8243Vzeymwj9271383 2.840.1.873709.3.579.2.24228-26-0261Fwmjnsx46889277 2.16840.1.722254.3.579.2.36642-64-5574Looxzoy91341714 2.840.1.390740.3.579.2.01824-31-3443Aqhrpof47200301 2.16840.1.142186.3.579.2.28160-46-5430Dbbilfl10367559 2.16840.1.248143.3.579.2.77548-38-5391Peiohfv76824380 2.16840.1.664375.3.579.2.92743-03-2442Zqruakx22643522 2.16840.1.536967.3.579.2.46569-73-5892Oiwgsvj34280288 2.16840.1.795074.3.579.2.52217-03-2253Fguemzn00313665 2..1.825945.3.579.2.96294-59-4181Tstfeyn97561976 2.840.1.142854.3.579.2.79994-14-9214Anjkqnp13539902 2.840.1.022014.3.579.2.62271-13-3227Bczukyx63722448 2.840.1.573184.3.579.2.42840-01-1501Pnqsgia63228188 2..1.803620.3.579.2.41450-68-1558Bmenjvw11880949 2.16840.1.216183.3.579.2.80154-38-5621Nriyuqz74110874 2.16840.1.646197.3.579.2.77847-18-0159Ymqunox36295720 2.16840.1.368484.3.579.2.08810-58-4220Eajxmob50796068 2.840.1.035448.3.579.2.02371-72-6653Gacitos933258393 2.16.840.1.424478.3.579.2.80324-64-7842Irgprwa03022148 2.16.840.1.573157.3.579.2.95848-12-9335Adqhrnv70264463 2.16.840.1.472858.3.579.2.09552-93-5160Mfqxelt43293953 2.16.840.1.462186.3.579.2.42428-52-7442Tdzycqz16766324 2.16.840.1.808701.3.579.2.80771-96-8703Tkzcsjw62992070 2.16.840.1.527449.3.579.2.61399-70-9837Hvbcpip65075950 2.16.840.1.566503.3.579.2.26500-43-7815Pdncpnf30950785 2.16.840.1.739077.3.579.2.98949-13-9590Dpudhrk891528930 2.16840.1.265728.3.579.2.142729-75-3527Icsdnqm246869395 2.16.840.1.808339.3.579.2.353696-63-1906Qckcjza245840989 2.16.840.1.099359.3.579.2.788281-67-6329Halzxkb122123441 2.16.840.1.246350.3.579.2.104108-32-5634Pjatbbn006369270 2.16.840.1.311167.3.579.2.451078-64-6856Wecffld26148442 2.16.840.1.139039.3.579.2.519271-49-5210Cksminh19977721 2.16.840.1.303237.3.579.2.632031-06-5411Klnaymw13328123 2.16.840.1.050149.3.579.2.067865-54-8463Aewfdul16444379 2.16.840.1.172975.3.579.2.972455-88-4854Ioprksr21276563 2.16.840.1.777021.3.579.2.256225-57-3218Krhably89300142 2.16.840.1.806977.3.579.2.025088-92-1505Ikobwkb77127982 2.16.840.1.658273.3.579.2.490424-47-9089Qeggums93717524 2.16.840.1.426463.3.579.2.050295-01-4109Cjyubxq2614061 2.16.840.1.819036.3.579.2.566154-16-4415Wsedndb1965498 2.16.840.1.537571.3.579.2.574842-14-4216Nvvh-gro69-97-2844Jpkermv743251448965 70-62-7415Efrthih51034218012756405Cckzgaj9878585227375-83-0267Zgvmirk1640093025Zghyzea9370926 2.0.1.240[id number] Social History DateTypeDetailFacilityStart: 05-03-2022 End: 97-18-7718Cycfqwy smoking statusNever smoked tobacco (finding)[facility]Start: 89-61-3568Mugphiv smoking statusNeverSelect Medical [facility] CareStart: 07-12-2023 End: 61-90-8382Ydz Assigned At BirthFeCommunity Memorial Hospitaltart: 12-12-2023 End: 89-75-0132Udxuecudm beverage intakeCurrent drinker of alcohol (finding)[facility]: [facility] End: 57-01-1333Itcceku of Social functionNOMS HealthcareStart: 98-55-3340Jompyeq Commentoccasional alcohol useNOMS HealthcareStart: 92-39-4411Owg assigned at birthNot on fileBates County Memorial HospitalTobacco smoking status NHISTobacco smoking consumption unknownOhio State Health Systemexual OrientationTrihealth Start: 07-02-2009 End: 30-01-3815GmqYmykfd (finding)[facility] Systemtart: 06-30-2024 PregnancyNOMS HealthcareStart: 67-51-5704Ducutuu use and exposureSmokeless tobacco non-userCincinnati Children's [facility] SystemStart: 09-24-2024 End: 63-01-7946Sphqdjloi beverage intakeEx-drinker (finding)[facility] SystemThe thought of harming myself has occurred to [facility] Medical Equipment Procedure CodeEquipment CodeEquipment Original TextEquipment IdentifierDates Glucose Test Strips, See Instructions, 1 EA, 3, Glucose Test Strips, [employer], Supply, 166, cm, 10/08/22 15:10:00 EDT, Height/Length Dosing, 57.8, kg, 10/08/22 15:10:00 EDT, Weight DosingStart: 35-85-5380Zyezrrg, See Instructions, 100 lancet(s), 3, Lancets, [employer] [employer] [facility], Supply, 166, cm, 10/08/22 15:10:00 EDT, Height/Length Dosing, 57.8, kg, 10/08/22 15:10:00 EDT, Weight DosingStart: 21-42-5627Mquhszs Test Strips, See Instructions, 1 EA, 3, Glucose Test Strips, [employer] [employer] [facility], Supply, 166, cm, 10/08/22 15:10:00 EDT, Height/Length Dosing, 57.8, kg, 10/08/22 15:10:00 EDT, Weight DosingStart: 36-76-3755Dlqmetr, See Instructions, 100 lancet(s), 3, Lancets, [facility] [employer] [facility], Supply, 166, cm, 10/08/22 15:10:00 EDT, Height/Length Dosing, 57.8, kg, 10/08/22 15:10:00 EDT, Weight DosingStart: 76-91-7325Hxmlowo Test Strips, See Instructions, 1 EA, 3, Glucose Test Strips, [facility] [employer] [facility], Supply, 166, cm, 10/08/22 15:10:00 EDT, Height/Length Dosing, 57.8, kg, 10/08/22 15:10:00 EDT, Weight DosingStart: 27-04-6492Khtdjmh, See Instructions, 100 lancet(s), 3, Lancets, [facility] [employer] [facility], Supply, 166, cm, 10/08/22 15:10:00 EDT, Height/Length Dosing, 57.8, kg, 10/08/22 15:10:00 EDT, Weight DosingStart: 82-51-3682Kzvysdb Test Strips, See Instructions, 1 EA, 3, Glucose Test Strips, [facility], Supply, 166, cm, 10/08/22 15:10:00 EDT, Height/Length Dosing, 57.8, kg, 10/08/22 15:10:00 EDT, Weight DosingStart: 02-44-9684Avtjrry, See Instructions, 100 lancet(s), 3, Lancets, [facility], Supply, 166, cm, 10/08/22 15:10:00 EDT, Height/Length Dosing, 57.8, kg, 10/08/22 15:10:00 EDT, Weight DosingStart: 19-48-6217Mvisfus Test Strips, See Instructions, 1 EA, 3, Glucose Test Strips, [facility], Supply, 166, cm, 10/08/22 15:10:00 EDT, Height/Length Dosing, 57.8, kg, 10/08/22 15:10:00 EDT, Weight DosingStart: 46-92-0654Asxdimo, See Instructions, 100 lancet(s), 3, Lancets, [facility], Supply, 166, cm, 10/08/22 15:10:00 EDT, Height/Length Dosing, 57.8, kg, 10/08/22 15:10:00 EDT, Weight DosingStart: 78-40-4562Cblpfkz Test Strips, See Instructions, 1 EA, 3, Glucose Test Strips, [facility], Supply, 166, cm, 10/08/22 15:10:00 EDT, Height/Length Dosing, 57.8, kg, 10/08/22 15:10:00 EDT, Weight DosingStart: 23-17-9041Jpjxedn, See Instructions, 100 lancet(s), 3, Lancets, [facility], Supply, 166, cm, 10/08/22 15:10:00 EDT, Height/Length Dosing, 57.8, kg, 10/08/22 15:10:00 EDT, Weight DosingStart: 45-09-9927Sgrsabw Test Strips, See Instructions, 1 EA, 3, Glucose Test Strips, [facility], Supply, 166, cm, 10/08/22 15:10:00 EDT, Height/Length Dosing, 57.8, kg, 10/08/22 15:10:00 EDT, Weight DosingStart: 04-27-9452Ckqwlza, See Instructions, 100 lancet(s), 3, Lancets, [facility], Supply, 166, cm, 10/08/22 15:10:00 EDT, Height/Length Dosing, 57.8, kg, 10/08/22 15:10:00 EDT, Weight DosingStart: 86-57-6170Nilmqhr Test Strips, See Instructions, 1 EA, 3, Glucose Test Strips, [facility], Supply, 166, cm, 10/08/22 15:10:00 EDT, Height/Length Dosing, 57.8, kg, 10/08/22 15:10:00 EDT, Weight DosingStart: 05-61-5461Speddio, See Instructions, 100 lancet(s), 3, Lancets, [facility], Supply, 166, cm, 10/08/22 15:10:00 EDT, Height/Length Dosing, 57.8, kg, 10/08/22 15:10:00 EDT, Weight DosingStart: 09-50-1113Ikudbql Test Strips, See Instructions, 1 EA, 3, Glucose Test Strips, [facility], Supply, 166, cm, 10/08/22 15:10:00 EDT, Height/Length Dosing, 57.8, kg, 10/08/22 15:10:00 EDT, Weight DosingStart: 71-79-5307Hxufhvj, See Instructions, 100 lancet(s), 3, Lancets, [facility], Supply, 166, cm, 10/08/22 15:10:00 EDT, Height/Length Dosing, 57.8, kg, 10/08/22 15:10:00 EDT, Weight DosingStart: 48-72-2629Gmfyrst Test Strips, See Instructions, 1 EA, 3, Glucose Test Strips, [facility], Supply, 166, cm, 10/08/22 15:10:00 EDT, Height/Length Dosing, 57.8, kg, 10/08/22 15:10:00 EDT, Weight DosingStart: 23-05-7763Myngqjt, See Instructions, 100 lancet(s), 3, Lancets, [facility], Supply, 166, cm, 10/08/22 15:10:00 EDT, Height/Length Dosing, 57.8, kg, 10/08/22 15:10:00 EDT, Weight DosingStart: 53-43-9281Kbtakju Test Strips, See Instructions, 1 EA, 3, Glucose Test Strips, [facility], Supply, 166, cm, 10/08/22 15:10:00 EDT, Height/Length Dosing, 57.8, kg, 10/08/22 15:10:00 EDT, Weight DosingStart: 11-62-7633Ximdlxk, See Instructions, 100 lancet(s), 3, Lancets, [facility], Supply, 166, cm, 10/08/22 15:10:00 EDT, Height/Length Dosing, 57.8, kg, 10/08/22 15:10:00 EDT, Weight DosingStart: 05-11-4848Jjystiq Test Strips, See Instructions, 1 EA, 3, Glucose Test Strips, [facility], Supply, 166, cm, 10/08/22 15:10:00 EDT, Height/Length Dosing, 57.8, kg, 10/08/22 15:10:00 EDT, Weight DosingStart: 57-87-5179Xewiywl, See Instructions, 100 lancet(s), 3, Lancets, [facility], Supply, 166, cm, 10/08/22 15:10:00 EDT, Height/Length Dosing, 57.8, kg, 10/08/22 15:10:00 EDT, Weight DosingStart: 11-04-8648Vfe daily as directed & as neededStart: 03-26-2021 Functional Status OsxsTykznybtfmUhalhyDzmmskdr95-26-6369Xsepohtbnu StatusN/[facility] Primary [id number] StatusN/[facility] Primary Nsna79-22-0782Fmirbmwenp StatusN/[facility] Primary [id number] StatusN/[facility] Digestive Health [id number] StatusN/[facility] Primary [id number] Functional StatusN/[facility] Primary Care Clinical Notes 05-03-2022 to 01-28-2025 Note Date & [id number] History of Present illness Narrative* Abril Stone NP - 01/28/2025 8:30 AM EST Reason for Appointment: Patient ID: Yana Church is a 25 y.o. female who presents for Routine Visit Patient presents today for Return OB appointment. MEDICATIONS Current Outpatient Medications Medication Instructions levothyroxine (SYNTHROID) 125 mcg, Oral, Daily before breakfast MV-Min-Fe Fum-FA-DHA ( 1 PO) Take by mouth ALLERGIES No Known Allergies PROBLEMS Active Ambulatory Problems Diagnosis Date Noted Thyroid disease 01/28/2025 History of prior with IUGR 01/28/2025 Resolved Ambulatory Problems Diagnosis Date Noted No Resolved Ambulatory Problems Past Medical History: Diagnosis Date BMI 23.0-23.9, adult Well woman exam HISTORY PAST MEDICAL HISTORY [...] nursing note reviewed. Exam conducted with a timber management assistant present. Vitals: Estimated body mass index is 26.29 kg/m as calculated from the following: Height as of 11/29/22: 5' 5 . Weight as of this encounter: 158 lb. BP: 124/70 Patient's last menstrual period was 06/16/2024. Assessment/Plan ICD-10-CM 1. Third trimester ([facility]) Z34.93 POCT urinalysis dipstick manually resulted 2. 32 weeks gestation of ([facility]) Z3A.32 3. Thyroid disease E07.9 4. History of prior with IUGR Z87.59 5. Hypothyroidism, unspecified type E03.9 Return OB: Patient presents today for a routine obstetrics appointment. Patient is currently 32w2d . Patient states she is doing well but has complaints of being tired due to current . Patient has verbalizes frequent movement. labor precautions was discussed/given and patient was instructed to perform kick counts three times a day. Orders Placed This Encounter Procedures POCT urinalysis dipstick manually resulted Follow Up: Patient is to return to office in 2 week for routine OB appointment. Documented by Abril Stone NP on behalf of: Santosh Marshall DO documented in this encounterBates County Memorial HospitalHzfrbwhtlv18-70-1063 History of Present illness Narrative* Abril Stone NP - 01/14/2025 8:30 AM EDT Reason for Appointment: Patient ID: Yana Church [...] nursing note reviewed. Exam conducted with a timber management assistant present. Vitals: Estimated body mass index is 26.71 kg/m as calculated from the following: Height as of 23: 5' 5 . Weight as of this encounter: 160 lb 8 oz. BP: 126/72 Patient's last menstrual period was 06/16/2024. Assessment/Plan ICD-10-CM 1. Third trimester ([facility]) Z34.93 POCT urinalysis dipstick manually resulted 2. 30 weeks gestation of ([facility]) Z3A.30 Return OB: Patient presents today for a routine obstetrics appointment. Patient is currently 30w2d . Patient states she is doing well but has complaints of being tired due to current . Patient has verbalizes frequent movement. labor precautions was discussed/given and patient was instructed to perform kick counts three times a day. Orders Placed This Encounter Procedures POCT urinalysis dipstick manually resulted Follow Up: Patient is to return to office in 2 week for routine OB appointment. Documented by Abril Stone NP on behalf of: Santosh Marshall DO documented in this encounterBates County Memorial HospitalBaypxnqrtu07-50-6288 History of Present illness Narrative* Daiana Villarreal LPN - 12/31/2024 11:00 AM EDT Reason for Appointment: Patient ID: Yana Church [...] nursing note reviewed. Exam conducted with a timber management assistant present. Vitals: Estimated body mass index is 25.38 kg/m as calculated from the following: Height as of 11/29/22: 5' 5 . Weight as of this encounter: 152 lb 8 oz. BP: 106/68 Patient's last menstrual period was 06/16/2024. ASSESSMENT & PLAN ICD-10-CM 1. Third trimester ([facility]) Z34.93 POCT urinalysis dipstick manually resulted 2. 28 weeks gestation of ([facility]) Z3A.28 Patient presents today for a routine obstetrics appointment. Patient is currently 28w2d with a Estimated Date of Delivery: 03/23/25. Patient had growth scan done prior to today's appointment. Patient will start NST/BPP at 32 weeks. Patient to return to clinic in 2 weeks. Documented by Daiana Villarreal LPN on behalf of: Santosh Marshall DO documented in this encounterBates County Memorial HospitalWsfrxwxkda68-78-1982 History of Present illness Narrative* LIS Man - 12/10/2024 10:00 AM EDT Reason for Appointment: Patient ID: Yana Church [...] ASSESSMENT & PLAN ICD-10-CM 1. Second trimester ([facility]) Z34.92 POCT urinalysis dipstick manually resulted 2. 25 weeks gestation of ([facility]) Z3A.25 3. Diabetes mellitus screening Z13.1 [...] behalf of: LIS Man documented in this encounterNOMS Lzoefqxoan08-44-3329 History of Present illness Narrative* Abril Stone, YADI - 11/12/2024 11:10 AM EDT Reason for Appointment: Patient ID: Yana Church [...] nursing note reviewed. Exam conducted with a timber management assistant present. Vitals: Estimated body mass index is 23.15 kg/m as calculated from the following: Height as of 11/29/22: 5' 5 . Weight as of this encounter: 139 lb 1.9 oz. BP: 110/72 Patient's last menstrual period was 06/16/2024. ASSESSMENT & PLAN ICD-10-CM 1. Second trimester ([facility]) Z34.92 POCT urinalysis dipstick manually resulted 2. 21 weeks gestation of ([facility]) Z3A.21 POCT urinalysis dipstick manually resulted [...] 4 weeks; She is followed closely per [facility] with history of hypothyroidism. Will obtain growth ultrasounds every 4 weeks and begin NST/BPP at 32 weeks. Documented by Abril Stone NP on behalf of: Santosh Marshall DO documented in this encounterBates County Memorial HospitalXkekgrdeef56-60-5472 History of Present illness Narrative* Nadira Salazar RN - 11/05/2024 1:00 PM [...] risk Have you been seen here at [facility] in a previous ? Recent ER visits or hospitalizations? No Bring blood sugar log or meter with you today? (Please bring them with you for every visit at [facility]) NA Flu vaccine (Jan-May)? NA Any concerns that you would like me to mention to the provider today? No * Jacklyn Campos MD - 11/05/2024 1:00 PM EDT [facility] Consult Note Reason For Consult: Hypothyroidism, history of prior growth restriction HPI: Yana Church is a 24 y.o. at 20w2d with Estimated Date of Delivery: 03/23/[address] Dr[address] Marshall, Santosh Jaimes DO regarding Chief Complaint Patient presents with [...] Jacklyn Campos MD, FACOG (she/hers) Maternal- Medicine [facility] [address] [place] [address] This document was created with [employer] technology. Though I make every effort to review the dictation as it is transcribed, on occasion the spoken word can be misinterpreted by the technology leading to inappropriate words, phrases, or sentences. This note is addressed to the requesting provider as a consultation for clinical guidance. Specificmedical abbreviations are occasionally used and those are generally approved by the [place]?Board of?Obstetrics and?Gynecology?as well as?Lucy campos abbreviations. The above plan of care was based solely on the diagnoses for which a consultation was requested. ?More frequent testing may be indicated based on her other medical/obstetrical conditions. The management of other or medical conditions is beyond the scope of requested consultation and will c ontinue to be followed by the primary development educator or primary care provider. Note to [...] opinion of the practitioner. documented in this encounterHolzer Medical Center – JacksonQBuy [id number] History of Present illness Narrative* LIS Man - 10/15/2024 9:50 AM EDT Reason for Appointment: Patient ID: Yana Church [...] ASSESSMENT & PLAN ICD-10-CM 1. Second trimester ([facility]) Z34.92 2. 17 weeks gestation of ([facility]) Z3A.17 POCT urinalysis dipstick manually [...] behalf of: LIS Man documented in this encounterBates County Memorial HospitalPwzzexcons61-07-4345 History of Present illness Narrative* Aliya JeronimoKALE - 09/17/2024 10:50 AM EDT Reason for Appointment: Patient ID: Yana Church [...] nursing note reviewed. Exam conducted with a timber management assistant present. Vitals: Estimated body mass index is 22.1 kg/m as calculated from the following: Height as of 11/29/22: 5' 5 . Weight as of this encounter: 132 lb 12.8 oz. BP: 112/70 Patient's last menstrual period was 06/16/2024. ASSESSMENT & PLAN ICD-10-CM 1. 13 weeks gestation of ([facility]) Z3A.13 2. Second trimester ([facility]) Z34.92 3. Thyroid disease E07.9 [...] meat, and stay away from [facility]. Patient has been consulted regarding any further do's and don'tsof . Patient voiced understanding and all questions and concerns were answered. Pt has h/o IUGR, thyroid disease, pt being referred to [facility] for level II ultrasound. Pt should be taking 125mcg of levothyroxine. Pt voiced understanding. Pt to start baby aspirin. Orders Placed This Encounter Procedures Glucose tolerance, 1 hour Follow Up: Patient is to return in 4 weeks for routine OB appointment. Documented by Aliya Jeronimo LPN on behalf of: Santosh Marshall DO documented in this encounterBates County Memorial [id number] History of Present illness Narrative* Carmita Tapia, BIOASSAYIST - 08/17/2024 9:30 AM EDT Reason for Appointment: Patient ID: Yana Church [...] drink 6-8 glasses of water a day, eatno raw or undercooked meat, and stay away from [facility]. Patient has also been advised to not change litter boxes and eat 6 small meals a day. Patient has been consulted regarding the do's and don'ts ofpregnancy. Patient was given labs and all questions and concerns were answered. Patient was sent in Magnesium for headaches. Patient given [place] labs to do with initial labs along with TSH. P atient given work note to allow break at work for snacks. Follow Up: Patient is to return in 4 weeks for routine OB appointment. Up: Patient is to have labs drawn at directed and return to office for initial OB appointment with provider. Patient may call office as needed with any concerns or questions. Nurse Visit Completed by: Carmita Tapia LPN documented in this encounterBates County Memorial HospitalLzwxuctygi90-56-4463 NotePatient Education Endocrinology Hypothyroidism Hypothyroidism is when the thyroid gland does not make enough of certain hormones. This is called an underactive thyroid. The thyroid gland is a small gland located in the lower front part of the neck, just in front of the windpipe (trachea). This gland makes hormones that help control how the bodyuses food for energy (metabolism) as well as how the heart and brain function. These hormones also play a role in keeping your bones strong. When the thyroid is underactive, it produces too little ofthe hormones thyroxine (T4) and triiodothyronine (T3). What [...] Follow these instructions at home: ??? Take lrtu-qiu-celjnaa and prescription medicines only as told by [...] the thyroid hormones that your body does notmake. This information is not intended to replace advice given to you by your health care provider. Make sure you discuss any questions you have with your health care provider. Document Revised: 03/09/2022 Document Reviewed: 03/09/2022 Elsevier Patient Education ? 2023 [employer] Obstetrics and Gynecology Health Maintenance, Female Adopting a healthy lifestyle and getting preventive care are important in promoting health and wellness. Ask your health care provider about: ??? The right schedule for you to have regular tests and exams. ??? Things (more content not included)...[facility]04-17-2025 NotePatient Education ENT How to Perform a Sinus [...] 5 minutes. Cool the water until it islukewarm. Use within 24 hours. ? Do not [...] cannot use soap and water, use hand make up operator. 2. Wash your device using the directions [...] provider. Document Revised: 08/24/2021 Document Reviewed: 08/24/2021 [employer] Patient Education ? 2023 [employer]. Infectious Disease Sinus Infection, Adult A sinus [...] this diagnosed? Your s (more content not included)...[facility]09-23-2024 History of Present illness Narrative* Daiana Villarreal LPN - 12/12/2023 2:00 PM EDT Reason for Appointment: Patient ID: Yana Church [...] Diagnosis Date BMI 23.0-23.9, adult Thyroid disease ([facility]) Well woman exam HISTORY PAST MEDICAL [...] nursing note reviewed. Exam conducted with a timber management assistant present. Vitals: Estimated body mass index is [...] of: Santosh Marshall DO documented in this encounterBates County Memorial HospitalFjnjuejhaz33-90-3624 Hospital Discharge instructions Patient Education 08/08/2023 16:25:47 Dysmenorrhea Dysmenorrhea Dysmenorrhea refers to cramps caused by the muscles of the uterus tightening (mk) during amenstrual period. Dysmenorrhea may be mild, or it [...] caused by a disorder in the reproductive system.It lasts longer, and it may cause more [...] to help relieve pain. General instructions Take kptz-xjh-isegxad and prescription medicines only as told by [...] you need help quitting, ask your health careprovider. Keep all follow-up visits. This is important. [...] muscles of the uterus tightening (mk) during amenstrual period. Dysmenorrhea may be mild, or it [...] provider. Document Revised: 10/22/2020 Document Reviewed: 10/22/2020 [employer] Patient Education 2022 [employer]. 08/08/2023 16:25:44 Hemorrhoids Hemorrhoids Hemorrhoids are swollen [...] help the symptoms, procedures can be done toshrink or remove the hemorrhoids. What are the [...] Other exams or tests may also be done,such as: An exam that involves feeling the [...] do not help your symptoms. These procedures canhelp make the hemorrhoids smaller or remove them completely. Some of these procedures involve surgery, and others do not. Common procedures include: Rubber band ligation. Rubber bands are placed at the base of the hemorrhoids to cut off their bloodsupply. Sclerotherapy. Medicine is injected into the hemorrhoids [...] 3 times a day. General instructions Take hkzz-elt-hmgmuen and prescription medicines only as told by [...] provider. Document Revised: 09/16/2021 Document Reviewed: 09/16/2021 [employer] Patient Education 2022 [employer]. 08/08/2023 16:25:43 Urinary Tract Infection, Adult Urinary Tract Infection, Adult A urinary tract infection (UTI) is an infection of any part of the urinary tract. The urinary tractincludes the kidneys, ureters, bladder, and urethra. These organs make, store, and get rid of urinein the body. An upper UTI affects the [...] Treatment for this condition includes: Antibiotic medicine. Obgj-zye-matyrfl medicines to treat discomfort. Drinking enough water to stay hydrated. If you have frequent infections or have other conditions such as a kidney stone, you may need to see a health care provider who specializes in the urinary tract (urologist). In rare cases, urinary tract infections can cause sepsis. Sepsis is a life- threatening condition that occurs when the body responds to an infection. Sepsis is treated in the hospital with IV antibiotics, fluids, and other medicines. Follow these instructions at home: Medicines Take xvbq-awi-suknkcf and prescription medicines only as told by your health care provider. If you were prescribed an antibiotic medicine, take it as told by your health care provider. Do notstop using the antibiotic even if you start [...] told by your health care provider. Do notstop using the antibiotic even if you start to feel better. Keep all follow-up visits. This is important. This information is not intended to replace advice given to you by your health care provider. Make sure you discuss any questions you have with your health care provider. Document Revised: 10/17/2020 Document Reviewed: 10/17/2020 [employer] Patient Education 2022 [employer]. 08/08/2023 16:25:41 Hypothyroidism Hypothyroidism Hypothyroidism is when the thyroid gland does not make enough of certain hormones. This is called an underactive thyroid. The thyroid gland is a small gland located in the lower front part of the neck, just in front of the windpipe (trachea). This gland makes hormones that help control how the bodyuses food for energy (metabolism) as well as how the heart and brain function. These hormones also play a role in keeping your bones strong. When the thyroid is underactive, it produces too little ofthe hormones thyroxine (T4) and triiodothyronine (T3). What [...] away. Follow these instructions at home: Take kxkl-sck-hnktyvp and prescription medicines only as told by [...] a disease in which the body's disease-fighting system(immune system) attacks the thyroid gland. The condition can also be caused by viral infections, medicine, , or past radiation treatment to the head or neck. Symptoms may include weight gain, dry skin, constipation, feeling as though you do not have energy,and not being able to tolerate cold. This condition is treated with medicine to replace the thyroid hormones that your body does not make. This information is not intended to replace advice given to you by your health care provider. Make sure you discuss any questions you have with your health care provider. Document Revised: 03/09/2022 Document Reviewed: 03/09/2022 [employer] Patient Education 2022 [employer]. [facility] 05-20-2024 Evaluation + Plan note Future Scheduled Tests Laboratory* UA with Cult Rflx 08/08/23 * CBC w/ Auto Diff 02/08/24 * Comprehensive Metabolic Panel 02/08/24 * Thyroid Stimulating Hormone 02/08/24 * Thyroid Stimulating Hormone 05/16/23 * Free T4 02/08/24 * Free T4 05/16/23 [facility] 12-20-2023 Hospital Discharge instructions Patient Education 03/09/2023 08:08:54 [...] or stopping your regular medicines. This is especiallyimportant if you are taking diabetes medicines or blood thinners. You may be asked to avoid urinating before coming to the test so that you arrive with a full bladder. Tell a health care provider about: ?Any allergies you have. ?All medicines you are taking, including vitamins, herbs, eye drops, creams, and eolx-qlf-cnvqbhw medicines. ?Whether you are or may be [...] flexible tube (catheter) into your bladder after youurinate. The remaining urine will be removed through [...] bladder will be filled with warm, germ-free (sterile)water. Pressure measurements will be taken: ?As your bladder fills. ?When you feel the need to urinate. ?As your bladder is emptied. You may be asked to cough or bear down to check for leakage. In some cases, your bladder may be filled with a material that shows up on X- rays (contrast material) so that X-ray pictures can [...] (warm compresses) may relieve any discomfort near yoururethra. What do the results mean? Talk with [...] provider. Document Revised: 11/18/2021 Document Reviewed: 10/10/2020 [employer] Patient Education 2022 [employer]. 03/09/2023 08:08:48 Urinary Tract Infection, Adult Urinary Tract Infection, Adult A urinary tract infection (UTI) is an infection of any part of the urinary tract. The urinary tractincludes the kidneys, ureters, bladder, and urethra. These organs make, store, and get rid of urinein the body. An upper UTI affects the [...] Treatment for this condition includes: Antibiotic medicine. Twpo-vef-vyokylp medicines to treat discomfort. Drinking enough water to stay hydrated. If you have frequent infections or have other conditions such as a kidney stone, you may need to see a health care provider who specializes in the urinary tract (urologist). In rare cases, urinary tract infections can cause sepsis. Sepsis is a life- threatening condition that occurs when the body responds to an infection. Sepsis is treated in the hospital with IV antibiotics, fluids, and other medicines. Follow these instructions at home: Medicines Take wgjn-fty-pgdomck and prescription medicines only as told by your health care provider. If you were prescribed an antibiotic medicine, take it as told by your health care provider. Do notstop using the antibiotic even if you start [...] told by your health care provider. Do notstop using the antibiotic even if you start to feel better. Keep all follow-up visits. This is important. This information is not intended to replace advice given to you by your health care provider. Make sure you discuss any questions you have with your health care provider. Document Revised: 10/17/2020 Document Reviewed: 10/17/2020 [employer] Patient Education 2022 [employer]. 03/09/2023 08:08:46 Hypothyroidism Hypothyroidism Hypothyroidism is when the thyroid gland does not make enough of certain hormones. This is called an underactive thyroid. The thyroid gland is a small gland located in the lower front part of the neck, just in front of the windpipe (trachea). This gland makes hormones that help control how the bodyuses food for energy (metabolism) as well as how the heart and brain function. These hormones also play a role in keeping your bones strong. When the thyroid is underactive, it produces too little ofthe hormones thyroxine (T4) and triiodothyronine (T3). What [...] away. Follow these instructions at home: Take srly-kme-lthiffq and prescription medicines only as told by [...] a disease in which the body's disease-fighting system(immune system) attacks the thyroid gland. The condition can also be caused by viral infections, medicine, , or past radiation treatment to the head or neck. Symptoms may include weight gain, dry skin, constipation, feeling as though you do not have energy,and not being able to tolerate cold. This condition is treated with medicine to replace the thyroid hormones that your body does not make. This information is not intended to replace advice given to you by your health care provider. Make sure you discuss any questions you have with your health care provider. Document Revised: 03/09/2022 Document Reviewed: 03/09/2022 [employer] Patient Education 2022 [employer]. Follow Up Care 03/07/2023 12:06:45 With:Ya Wang FAM, [facility] Address: [address], [address] [place] [phone] Business (1) When:05/25/2023 Comments:for f/u [facility] 12-04-2023 Hospital Discharge instructions Patient Education 02/21/2023 13:38:44 [...] Follow these instructions at home: Medicines Take qizm-rav-crlyfxx and prescription medicines only as told by your health care provider. If you were prescribed an antibiotic medicine, take it as told by your health care provider. Do notstop taking the antibiotic even if you start [...] have the sudden feeling that you have tourinate (urgency). Watch your condition for any changes. Keep all follow-up visits. Make sure that you urinate often and drink enough fluid to keep your urine pale yellow. This information is not intended to replace advice given to you by your health care provider. Make sure you discuss any questions you have with your health care provider. Document Revised: 10/17/2020 Document Reviewed: 10/17/2020 [employer] Patient Education 2022 [employer]. Follow Up Care 02/21/2023 08:19:47 With:Ya Wang FAM, MED Address: [address] [place], [place] [id number] Business (1) When:05/25/2023 Comments:for f/u [facility] 09-12-2023 Hospital Discharge instructions Patient Education 11/30/2022 12:07:42 [...] the amount of dietary fiber. Choose foods thathave 5 grams of fiber or more per [...] Bulgur wheat. Millet. Quinoa. Bran muffins. Popcorn. [place] wafer crackers. Meats and other proteins [place] beans, kidney beans, and díaz beans. Soybeans. [...] Cream cheese. Sour cream. Fats and oils Becker. Beverages Soft drinks. Other foods Cakes and pastries. The items listed above may not be a complete list of foods and beverages to avoid. Talk with your dietitian about what choices are best for you. Summary Fiber is a type of carbohydrate. It is found in foods such as fruits, vegetables, whole grains, andbeans. A high-fiber diet has many benefits. It can help to prevent constipation, lower blood cholesterol, aid weight loss, and reduce your risk of heart disease, diabetes, and certain cancers. Increase your intake of fiber gradually. Increasing fiber too quickly may cause cramping, bloating,and gas. Drink plenty of water while you [...] provider. Document Revised: 07/10/2020 Document Reviewed: 07/10/2020 Elsevier Patient Education 2022 [employer]. Follow Up Care 11/11/2022 12:10:41 With:Daniel Gray CNP Address: When:2 weeks Comments:Following EGD/Colonoscopy. [facility] 08-24-2023 Hospital Discharge instructions Patient Education 11/11/2022 01:00:56 [...] label of any prepackaged food. Look for foodsthat contain 5 g of fiber or more per serving. Talk with a diet and food and nutrition teacher (dietitian) if you have questions about specific [...] Bulgur wheat. Millet. Quinoa. Bran muffins. Popcorn. [place] wafer crackers. Meats and other proteins [place], kidney, and díaz beans. Soybeans. Split peas. [...] Cream cheese. Sour cream. Fats and oils Becker. Beverages Soft drinks. Other foods Cakes and [...] 03/07/2006 Document Revised: 01/09/2018 Document Reviewed: 01/09/2018 [employer] Patient Education 2020 [employer]. 11/11/2022 01:00:54 Hemorrhoids Hemorrhoids Hemorrhoids are swollen [...] help the symptoms, procedures can be done toshrink or remove the hemorrhoids. What are the [...] Other exams or tests may also be done,such as: An exam that involves feeling the [...] do not help your symptoms. These procedures canhelp make the hemorrhoids smaller or remove them completely. Some of these procedures involve surgery, and others do not. Common procedures include: Rubber band ligation. Rubber bands are placed at the base of the hemorrhoids to cut off their bloodsupply. Sclerotherapy. Medicine is injected into the hemorrhoids [...] 3 times a day. General instructions Take jwpj-wew-qmyosna and prescription medicines only as told by [...] provider. Document Revised: 09/16/2021 Document Reviewed: 09/16/2021 [employer] Patient Education 2022 [employer]. Follow Up Care 11/08/2022 14:59:04 With:Ya Wang FAM, [facility] Address: [address] [place] [address] [facility] (1) When:Within 3 Month(s) Comments:3 mo f/u [facility] 02-13-2023 Hospital Discharge instructions Patient Education 05/03/2022 14:34:00 Hypothyroidism Hypothyroidism Hypothyroidism is when the thyroid gland does not make enough of certain hormones (it is underactive). The thyroid gland is a small gland located in the lower front part of the neck, just in front ofthe windpipe (trachea). This gland makes hormones that [...] away. Follow these instructions at home: Take odtj-hrq-fbfjzsf and prescription medicines only as told by [...] a disease in which the body's disease-fighting system(immune system) attacks the thyroid gland. The condition can also be caused by viral infections, medicine, , or past radiation treatment to the head or neck. Symptoms may include weight gain, dry skin, constipation, feeling as though you do not have energy,and not being able to tolerate cold. This condition is treated with medicine to replace the thyroid hormones that your body does not make. This information is not intended to replace advice given to you by your health care provider. Make sure you discuss any questions you have with your health care provider. Document Released: 03/07/2006 Document Revised: 02/17/2018 Document Reviewed: 02/15/2018 [employer] Patient Education [employer]. Follow Up Care 04/05/2022 12:35:49 With:Ritu Desai CNP Address: [address] [place] [phone] When:1 year Comments:or sooner if needed. [facility] Evaluation + Plan note No data available for this section [facility] Evaluation + Plan note Future Appointments Appointment Date:11/30/2022 12:00:00 PM Scheduled Provider:Daniel Gray CNP Location:[facility] Appointment Type:BAD New Patient Appointment Date:04/04/2023 01:00:00 PM Scheduled Provider:Ya Wang Location:[facility] Appointment Type: Open Future Scheduled Tests Laboratory* TSH With T4fr Reflex 10/08/22 [facility] Evaluation + Plan note Future Appointments Appointment Date:04/04/2023 01:00:00 PM Scheduled Provider:Ya Wang Location:[facility] Appointment Type:FM Open Future Scheduled Tests Laboratory* TSH With T4fr Reflex 10/08/22 [facility] Evaluation + Plan note Future Appointments Appointment Date:07/25/2023 10:00:00 AM Scheduled Provider:Ya Wang Location:[facility] Appointment Type:FM Open Future Scheduled Tests Laboratory* T3 Free 02/21/23 * Thyroid Stimulating Hormone 02/21/23 * Free T4 02/21/23 [facility] Evaluation + Plan note Future Appointments Appointment Date:07/25/2023 10:00:00 AM Scheduled Provider:Ya Wang Location:[facility] Appointment Type:FM Open Diagnostic Tests Pending * Urine Culture 02/21/23 Future Scheduled Tests Laboratory* T3 Free 02/21/23 * Thyroid Stimulating Hormone 02/21/23 * Free T4 [facility]ments Appointment Date:07/25/2023 10:00:00 AM Scheduled Provider:Ya Wang [facility] Type:FM Open Future Scheduled Tests Laboratory* T3 Free 02/21/23 * Thyroid Stimulating Hormone 02/21/23 * Free T4 02/21/23 Radiology* US Retroperitoneal Complete 03/09/23 [facility] Evaluation + Plan note Future Appointments Appointment Date:07/25/2023 10:00:00 AM Scheduled Provider:Ya Wang [facility] Appoint[facility] Type:FM Open Diagnostic Tests Pending * Urine Culture 03/09/23 Future Scheduled Tests Laboratory* T3 Free 02/21/23 * Thyroid Stimulating Hormone 02/21/23 * Free T4 02/21/23 Radiology* US Retroperitoneal Complete 03/09/23 [facility] Future Appointments Appointment Date:07/12/2023 09:30:00 AM Scheduled Provider:OPAL LUZ PA-C Location:[facility] Appointment Type:URO New Patient Appointment Date:07/25/2023 10:00:00 AM Scheduled Provider:Ya Wang Location[facility] Appointment Type:FM Open Diagnostic Tests Pending * T3 Free 03/22/23 [facility] Future Appointments Appointment Date:07/12/2023 09:30:00 AM Scheduled Provider:OPAL LUZ PA-C Location:[facility] Appointment Type:URO New Patient Appointment Date:07/25/2023 10:00:00 AM Scheduled Provider:Ya Wang [facility] Type:FM Open [facility] Future Appointments Appointment Date:07/25/2023 10:00:00 AM Scheduled Provider:Ya Wang Location:[facility] Appointment Type:FM Open Future Scheduled Tests Laboratory* Thyroid Stimulating Hormone 05/16/23 * Free T4 05/16/23 [facility] evaluation + Plan note Future Scheduled Tests Laboratory* CBC w/ Auto Diff 02/08/24 * Comprehensive Metabolic Panel 02/08/24 * Thyroid Stimulating Hormone 02/08/24 * Free T4 02/08/24 [facility] Future Appointments Appointment Date:07/09/2024 08:00:00 AM Scheduled Provider:Marta Rivas Location:[facility] Appointment Type:FM New Patient - Adult Future Scheduled Tests Laboratory* CBC w/ Auto Diff 02/08/24 * Comprehensive Metabolic Panel 02/08/24 * Thyroid Stimulating Hormone 02/08/24 * Free T4 02/08/24 [facility] note* Diagnosis Well woman exam with routine gynecological exam Routine gynecological examination [facility] Family history of autism Family history of psychiatric condition [facility] Diagnosis Missed menses , unspecified gestational age Encounter for supervision of normal first in first trimester Nonintractable headache, unspecified chronicity pattern, unspecified headache type documented in this encounter [facility]* Diagnosis 13 weeks gestation of (HHS-HCC) Second trimester (HHS-HCC) state, incidental Thyroid disease Unspecified disorder of thyroid History of prior with IUGR Diabetes mellitus screening Screening for diabetes mellitus documented in this encounter [facility]* Diagnosis Thyroid disease affecting - Primary History of prior with IUGR [facility]* Diagnosis Second trimester (HHS-HCC) state, incidental 17 weeks gestation of (HHS-HCC) documented in this encounter [facility]* Diagnosis 20 weeks gestation of [...] rupture of membranes documented in this encounter [facility]* Diagnosis 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 trimester- Primary History of prior with IUGR History of premature rupture of membranes documented in this encounter [facility]* Diagnosis Hypothyroidism, unspecified type- Primary Second trimester (HHS-HCC) state, incidental 21 weeks gestation of (HHS-HCC) Vaginal discharge Leukorrhea, not specified as infective STD exposure documented in this encounter [facility]* Diagnosis Size of fetus inconsistent with dates in second trimester (HHS-HCC)- Primary Second trimester (HHS-HCC) state, incidental 25 weeks gestation of (HHS-HCC) Diabetes mellitus screening Screening for diabetes mellitus documented in this encounter [facility]* Diagnosis Third trimester (HHS-HCC) state, incidental 28 weeks gestation of (HHS-HCC) documented in this encounter [facility]* Diagnosis Third trimester (HHS-HCC) state, incidental 30 weeks gestation of (HHS-HCC) documented in this encounter [facility]* Diagnosis Third trimester (HHS-HCC) state, incidental 32 weeks gestation of (HHS-HCC) Thyroid disease Unspecified disorder of thyroid History of prior with IUGR Hypothyroidism, unspecified type [facility] No data available for this section [facility] filedocumented in [facility] filedocumented in this encounter [facility] filedocumented in [facility] No data available for this section [facility] Summary Purpose Family History No [...] Family History Records Found Advance Directives Date ActivatedDate InactivatedComments05/30/2021 7:15 AM06/01/2021 2:55 PMDate ActivatedDate InactivatedComments05/12/2021 1:10 PM2 2:16 PMDate ActivatedDate InactivatedComments04/21/2021 7:00 PM2 1:57 PMDate Activated Date GocmduiaijwCvtjttdd69/14/2021 5:01 PM03/26/2021 7:46 PMDate ActivatedDate InactivatedComments05/30/2021 7:15 AM06/01/2021 2:55 PMDate ActivatedDate InactivatedComments05/12/2021 1:10 PM2 2:16 PMDate ActivatedDate InactivatedComments04/21/2021 7:00 PM2 1:57 PMDate ActivatedDate UickctgjbsoNltefnsy85/14/2021 5:01 PM03/26/2021 7:46 PM Additional Source Comments INFORMATION SOURCE (unrecogn ized section and content) DATE CREATED AUTHOR 11/15/2021 [facility] DATE CREATED AUTHOR AUTHOR'S ORGANIZ ATION 09/09/2023 [facility] DATE CREATED AUTHOR AUTHOR'S ORGANIZ ATION 05/21/2024 [facility] DATE CREATED AUTHOR AUTHOR'S ORGANIZ ATION 07/06/2024 [facility] DATE CREATED AUTHOR AUTHOR'S ORGANIZ ATION 07/10/2024 [facility] DATE CREATED AUTHOR AUTHOR'S ORGANIZ ATION 07/13/2024 [facility] DATE CREATED AUTHOR AUTHOR'S ORGANIZ ATION 11/21/2024 [facility] DATE CREATED AUTHOR AUTHOR'S ORGANIZ ATION 12/12/2024 [facility] DATE CREATED AUTHOR AUTHOR'S ORGANIZ ATION 01/28/2025 [facility] EPIC Patient Care team informatio n (unrecognized section and content) Team MemberRelationshipSpecialtyStart DateEnd Date Staci White MD [address] [place] [address] PCP - GeneralInternal Medicine11/29/22Team MemberRelationshipSpecialtyStart Date End Date Staci White MD [address] [place] [address] PCP - GeneralInternal Medicine11/29/22Team MemberRelationshipSpecialtyStart Date End Date Staci White MD [address] [place] [address] PCP - GeneralInternal Medicine11/29/22Team MemberRelationshipSpecialtyStart Date End [place] [address] Attending ProviderMedical Clinical Genetics05/14/24Team MemberRelationship SpecialtyStart DateEnd Date Staci White MD [address] [place] [address] PCP - GeneralInternal Medicine11/29/22am MemberRelationshipSpecialtyStart Date End Date Staci White MD [address] [place] [address] PCP - GeneralInternal Medicine11/29/22am MemberRelationshipSpecialtyStart Date End Date Staci White MD [address] [place] [address] PCP - GeneralInternal Medicine11/29/22am MemberRelationshipSpecialtyStart Date End Date Staci White MD [address] [place] [address] PCP - GeneralInternal Medicine11/29/22am MemberRelationshipSpecialtyStart Date End Date Staci White MD PCP - GeneralInternal Medicine04/07/21am MemberRelationshipSpecialtyStart Date End Date Staci White MD [address] [place] [address] PCP - GeneralInternal Medicine11/29/22am MemberRelationshipSpecialtyStart Date End Date Staci White MD PCP - GeneralInternal Medicine04/07/21am MemberRelationshipSpecialtyStart Date End Date Staci White MD PCP - GeneralInternal Medicine04/07/21Te MemberRelationshipSpecialtyStart Date End Date Staci White MD [address] [place] [address] [facility] - [facility]/29/22Te MemberRelationshipSpecialtyStart Date End Date Staci White MD [address] [place] [address] PCP - GeneralInternal [facility]11/29/22Te MemberRelationshipSpecialtyStart Date End Date Staci White MD [address] [place] [address] [facility]11/29/22Te MemberRelationshipSpecialtyStart Date End Date Staci White MD [address] [place] [address] [facility]11/29/22Te MemberRelationshipSpecialtyStart Date End Date Staci White MD [address] [place] [address] [facility] - [facility]11/29/22 Reason for Visit (unrecogniz ed section and content) ReasonCommentsWell Women VisitReasonCommentsAmenorrheaReasonCommentsRoutine VisitReasonCommentsHypothyroidismHx previous FGRReasonCommentsSTI ScreeningRoutine Visit FOR RECORDS PERTAINING TO PATIENTS WHO [...] BE BASED ON THE PRIMARY CLINICAL RECORDS. [facility] [employer] [facility]. provides no warranty or guarantee of the accuracy or completeness of information in this document.
[2025-02-05 13:07] VITALS: BP 116/70; PULSE 104
== END 2025-02-05 14:30 | disposition home or self-care (01) ==
LOC: US 12:58 → FBC 13:03
PROVIDERS: Visit Provider Obstetrics & Gynecology
DX: O99.283 Endocrine, nutritional and metabolic diseases complicating pregnancy, third trimester (principal); E03.9 Hypothyroidism, unspecified; E07.9 Disorder of thyroid, unspecified
CPT/HCPCS: 36415; 76818; 84443

== ENCOUNTER 2025-02-05 14:35 | Outpatient (OUT) | payer BC, SELFPAY ==
--- OUTSIDE RECORDS SUMMARY | 2025-02-05 14:44 | XMS_ITS | CCD ---
Author Organization [facility] Care Team Providers Care Meal Attendant Name Role Phone JOANNA, DR VILLATORO Admitting [...] Care Unavailable Ritu Desai Primary Care Physician [phone] Norberto, Ya L Primary Care Physician Norberto, [...] Primary Care Provider Carmita Jurado MD Unavailable [phone] CARMITA JURADO Referring Unavailable CARMITA JURADO Attending [...] (Original)acetaminophen 500 mg oral tablet (3 sources)Start: 06-83-2001pqdm 2 tablets by mouth every eight hours [...] oral capsule (2 sources)Cephalosporin AntibacterialStart: 03-09-2023 End: 17-49-4853lyii 1 capsule by mouth four times dailyKeflex 500 mg Cap 500 mg = 1 cap(s), Oral, QID, X 7 day(s), # 28 cap(s), Refills(s) 0, Pharmacy: [facility], 166, cm, 03/09/23 7:33:00 EST, Height/Length Dosing, 58.7, kg, 03/09/23 7:33:00 EST, Weight Dosing Start Date: 03/09/23 Stop Date: 03/16/23 Status: OrderedColace (3 sources)Start: 68-40-8056Aqsryo Refills(s) 0 Start Date: 11/30/22 Status: OrderedStart: 06-01-2021 End: 88-29-3346bwgv 1 capsule by mouth in the morning, then take 1 capsule by mouth at bedtimedocusate sodium (COLACE) 100 mg capsule Take 1 capsule (100 mg total) by mouth in the morning and 1capsule (100 mg total) before bedtime. 10 capsule 06/01/2021 11/05/2024 Discontinued (Therapy completed)Flonase (3 sources)CorticosteroidStart: 32-00-5300Qzrgbev Nasal, Daily, Refill(s) 0 Start Date: 09/10/18 Status: OrderedFREESTYLE LITE METER kit (3 sources)Start: 12-14-7486YIXOWSTLF LITE METER kit See Admin Instructions. 03/26/2021 Activehydrocortisone acetate 0.025 mg/mg / lidocaine hydrochloride 0.03 mg/mg rectal gel (2 sources)Antiarrhythmic, Corticosteroid, Amide Local AnestheticStart: 43-37-9564liglbowjfgyrdt-lidocaine 2.5%-3% rectal gel with applicator 1 cramen, Rectal, BID, 60 EA, Refill(s) 1,[facility][id number], 166, cm, 11/11/22 9:28:00 EDT, Height/Length Dosing, 59.4, kg, 11/11/22 9:28:00 EDT, Weight Dosing Start Date: 11/19/22 Status: OrderedStart: 48-24-5952jtlxacefnbtjnd-lidocaine 2.5%-3% rectal gel with applicator 1 carmen, Rectal, BID, 60 EA, Refill(s) 1,[facility], 166, cm, 11/11/22 9:28:00 EDT, Height/Length Dosing, 59.4, kg, 11/11/22 9:28:00 EDT, Weight Dosing Start Date: 11/11/22 Status: Orderedlevothyroxine sodium 0.125 mg oral tablet (20 sources)l-ThyroxineStart: 09-17-2024 End: 14-65-4634imej 1 tablet by mouth before mealtimelevothyroxine (Synthroid) 125 MCG tablet Indications: Thyroid disease Take 1 tablet (125 mcg) by mouth in the morning. Take before meals. 30 tablet 11 09/17/2024 09/17/2025 ActiveStart: 08-22-2024 End: 45-10-0872fdfq 1 tablet by mouth before mealtimelevothyroxine (Synthroid) 25 MCG tablet Indications: Thyroid disease Take 1 tablet (25 mcg) by mouth in the morning. Take before meals. 30 tablet 11 08/22/2024 10/15/2024 Discontinued Start: 54-85-1237rntj 1 tablet by mouth once dailySynthroid 100 mcg Tab 100 mcg = 1 tab(s), Oral, Daily, # 90 tab(s), Refills(s) 0, Pharmacy: [facility], 166, cm, 08/08/23 15:44:00 EDT, Height/Length Dosing, 56.1, kg, 08/08/23 15:51:00 EDT, Weight Dosing Start Date: 06/19/24 Status: Ordered Quantity: 90.0 Unit: tab(s) Repeat number: 1Start: 06-19-2024 End: 00-98-9595opct 1 tablet by mouth once dailylevothyroxine (Synthroid, Levoxyl) 100 MCG tablet Take 100 mcg by mouth Daily 06/19/2024 10/15/2024 DiscontinuedStart: 24-46-4431sdya 1 tablet by mouth once dailySynthroid 100 mcg Tab 100 mcg = 1 tab(s), Oral, Daily, # 90 tab(s), Refills(s) 1, Pharmacy: [facility], 166, cm, 05/16/23 14:25:00 EST, Height/Length Dosing, 56.7, kg, 05/16/23 14:25:00 EST, Weight Dosing Start Date: 05/16/23 Status: OrderedStart: 33-79-0410splb 1 tablet by mouth once dailySynthroid 112 mcg Tab 112 mcg = 1 tab(s), Oral, Daily, # 60 tab(s), Refills(s) 0, Pharmacy: [facility], 166, cm, 11/30/22 12:12:00 EDT, Height/Length Dosing, 58.8, kg, 11/30/22 12:12:00 EDT, Weight Dosing Start Date: 02/07/23 Status: OrderedStart: 12-18-7896bood 1 tablet by mouth once dailySynthroid 112 mcg Tab 112 mcg = 1 tab(s), Oral, Daily, # 60 tab(s), Refills(s) 0, Pharmacy: [facility], 166, cm, 10/08/22 15:10:00 EDT, Height/Length Dosing, 57.8, kg, 10/08/22 15:10:00 EDT, Weight Dosing Start Date: 10/08/22 Status: OrderedStart: 10-08-2022 End: 01-42-3643ebgc 1 tablet by mouth in the morninglevothyroxine (Synthroid, Levoxyl) 112 MCG tablet Take 112 mcg by mouth in the morning. 10/08/2022 0 08/17/2024 DiscontinuedStart: 01-29-2635ckdp 1 tablet by mouth once daily levothyroxine 125 mcg (0.125 mg) Tab 125 mcg = 1 tab(s), Oral, Daily, # 90 tab(s), Refills(s) 3, Pharmacy: [facility], 166, cm, 05/03/22 14:21:00 EST, Height/Length Dosing, 61.2, kg, 05/03/22 14:21:00 EST, Weight Dosing Start Date: 05/03/22 Status: Orderedlevothyroxine (SYNTHROID, LEVOTHROID) 100 MCG tablet Take 125 mcg by mouth in the morning. Activeloratadine 10 mg oral tablet (13 sources)Start: 08-73-2477jztz 1 tablet by mouth once dailyClaritin 10 mg Tab 10 mg, Oral, Daily, # 10 tab(s), Refills(s) 0, Pharmacy: [facility], 166, cm, 12/05/19 13:03:00 EDT, Height/Length Dosing, 61.6, kg, 12/05/19 13:03:00 EDT, Weight Dosing Start Date: 12/05/19 Status: Ordered Quantity: 10.0 Unit: tab(s) Repeat number: 1magnesium oxide 400 mg oral tablet (5 sources)Start: 08-17-2024 End: 86-32-3022glxi 1 tablet by mouth once dailymagnesium oxide (Mag-Ox) 400 MG tablet Indications: Nonintractable headache, unspecified chronicitypattern, unspecified headache type Take 1 tablet (400 mg) by mouth Daily 30 tablet 6 08/17/2024 09/16/2024 Activephenazopyridine hydrochloride 200 mg oral tablet (4 sources)Start: 03-09-2023 End: 09-73-7237eenj 1 tablet by mouth three times dailyPyridium 200 mg Tab 200 mg = 1 tab(s), Oral, TID, X 3 day(s), # 9 tab(s), Refills(s) 0, Pharmacy: [facility], 166, cm, 03/09/23 7:33:00 EST, Height/Length Dosing, 58.7, kg, 03/09/23 7:33:00 EST, Weight Dosing Start Date: 03/09/23 Stop Date: 03/12/23 Status: OrderedStart: 02-21-2023 End: 31-71-7486yapk 1 tablet by mouth three times dailyPyridium 200 mg Tab 200 mg = 1 tab(s), Oral, TID, X 3 day(s), # 9 tab(s), Refills(s) 0, Pharmacy: [facility], 166, cm, 02/21/23 13:06:00 EST, Height/Length Dosing, 58.6, kg, 02/21/23 13:06:00 EST, Weight Dosing Start Date: 02/21/23 Stop Date: 02/24/23 Status: OrderedPNV no.95/ferrous fum/folic ac ( ORAL) (3 sources)PNV no.95/ferrous fum/folic ac ( ORAL) Take by mouth in the morning. ActivePNV no.95/ferrous fum/folic ac ( ORAL) Take by mouth daily. Activepolyethylene glycol 3350 027461 mg / potassium chloride 1480 mg / sodium bicarbonate 5720 mg / sodium chloride 32191 mg powder for oral solution (11 sources)Osmotic LaxativeStart: 95-46-5152ZwQENKJA Paige oral powder for reconstitution See Instructions, 1 EA, Refill(s) 0, Prior to colonoscopy., [facility] #[id number], 166, cm, 11/30/22 12:12:00 EDT, Height/Length Dosing, 58.8, kg, 11/30/22 12:12:00 EDT, Weight Dosing Start Date: 11/30/22 Status: Ordered Quantity: 1.0 Unit: EA Repeat number: 1Prenatal MV-Min-Fe Fum-FA-DHA ( 1 PO) (20 sources) MV-Min-Fe Fum-FA-DHA ( 1 PO) Take by mouth Active Completed/Discontinued Medications MedicationDrug Class(es)DatesSig (Normalized)Sig (Original)ibuprofen 800 mg oral tablet (2 sources)Nonsteroidal Anti-inflammatory DrugStart: 06-01-2021 End: 60-37-5180ajjo 1 tablet by mouth every eight hours as neededibuprofen (ADVIL,MOTRIN) 800 mg tablet Take 1 tablet (800 mg total) by mouth every 8 (eight) hours as needed (cramping). 30 tablet 06/01/2021 11/05/2024 Discontinued (Therapy completed)nitrofurantoin, macrocrystals 25 mg / nitrofurantoin, monohydrate 75 mg oral capsule (6 sources)Nitrofuran AntibacterialStart: 09-11-2024 End: 03-69-2569gomc 1 capsule by mouth in the morningnitrofurantoin, macrocrystal-monohydrate, (Macrobid) 100 MG capsule Indications: Urinary tract infection without hematuria, site unspecified Take 1 capsule (100 mg) by mouth in the morning and 1 capsule (100 mg) before bedtime. Do all this for 7 days. 14 capsule 09/11/2024 09/18/2024 ExpiredStart: 02-21-2023 End: 41-21-4081iste 1 capsule by mouth every twelve hoursMacrobid 100 mg Cap 100 mg = 1 cap(s), Oral, q12hr, X 5 day(s), # 10 cap(s), Refills(s) 0, Pharmacy: [facility], 166, cm, 02/21/23 13:06:00 EST, Height/Length Dosing, 58.6, kg, 02/21/23 13:06:00 EST, Weight Dosing Start Date: 02/21/23 Stop Date: 02/26/23 Status: Orderedprogesterone (FIRST-PROGESTERONE VGS) 200 mg suppository (2 sources)Start: 03-26-2021 End: 47-65-4075pkkibbglenlq (FIRST-PROGESTERONE VGS) 200 mg suppository Indications: Hypothyroid [...] Problems Problem ClassificationProblemDateDocumented DateEpisodic/ChronicAbdominal pain (13 sources)Abdominal amwx39-32-7711BwhudmlpTubblnqvl infection; unspecified site (1 source)Infection due to Escherichia coli; Translations: [Unspecified Escherichia coli [E. coli] as the cause of diseases classified elsewhere]Onset: 74-65-1439XovmgxgqRhxdbouz or abnormal glucose tolerance complicating ; childbirth; or the puerperium (18 sources)History of gestational diabetes mellitus; Translations: [Gestational diabetes mellitus]Onset: 05-19-2021 Resolved: 727932-67-2337VtkprhkuGshpflctmtaza symptoms and ill-defined conditions (4 sources)Dysuria; Translations: [Dysuria]Onset: 62-02-1184YoyuodszZgwrpjqd; including migraine (13 sources)Migraine without zcjj22-32-9667XwdswekEomzwlfs; including migraine (6 sources)Headache; Translations: [Nonintractable headache, unspecified chronicity pattern, unspecified headache type]53-92-3731AvyubtglNvtpkqwfnb during ; abruptio placenta; placenta previa (4 sources)Low lying placenta; Translations: [Low lying placenta NOS or without hemorrhage, unspecified trimester]Onset: 265818-37-9810DxnuycemUglgkxiarjh (15 sources)Hemorrhoids; Translations: [Unspecified hemorrhoids]Onset: 79-71-5541FaonyllbCfjfagdoorwsv and screening for infectious disease (4 sources)Encounter for screening for human papillomavirus (HPV); Translations: [Contact with and (suspected)exposure to infections with a predominantly sexual mode of transmission]Onset: 560014-23-5325HlqwvxkaDruffbxxdcwh; infection of eye (except that caused by tuberculosis or sexually transmitteddisease) (4 sources)Nvfbwdsfc08-46-9078DocaszwjZmphtdtkt disorders (15 sources)Dysmenorrhea; Translations: [Dysmenorrhea, unspecified]Onset: 005614-42-7099ElxthfbIhbkv complications of (5 sources)Endocrine, nutritional and metabolic diseases complicating , unspecified trimester; Translations: [ENDOCRN NUTR MET DZ COMP PG UNS TRI]Onset: 24-01-3532UbucdjwxOmtri complications of (2 sources)Thyroid disease in mother complicating , childbirth AND/OR puerperium; Translations: [Endocrine, nutritional and metabolic diseases complicating , unspecified trimester]42-99-1369ZxtzrewlCffwz complications of (8 sources)Hypothyroidism in ; Translations: [Endocrine, nutritional and metabolic diseases complicating , unspecified trimester]Onset: 033405-57-8830IzxnceauVwybv complications of (3 sources)History of gynecological disorder; Translations: [Supervision of with other poor reproductive or obstetric history, unspecified trimester]Onset: 158270-52-5070CqvkprxzCgree complications of (2 sources) size does not accord with dates; Translations: [Uterine size- date discrepancy, second trimester]19-05-2589XfzdowfyLnggy endocrine disorders (4 sources)Hwsunfycqnjo04-95-5915GrawafpSpcmg eye disorders (4 sources)Eye -19-7091RsiiujkcVlsii female genital disorders (4 sources)Lesion of -15-4920IkgrpwpfVxxus female genital disorders (1 source)Noninflammatory disorder of vulva; Translations: [Other specified noninflammatory disorders of vulva and perineum]Onset: 93-11-6614MvwssdwgQogeh female genital disorders (2 sources)Vaginal discharge; Translations: [Other specified noninflammatory disorders of vagina]10-42-1589UkaoiwoyEjfii gastrointestinal disorders (4 sources)Eaqdbvcudvrp07-50-4293InzljkucJvfml gastrointestinal disorders (1 source)Digestive system finding; Translations: [Other specified symptoms and signs involving the digestivesystem and abdomen]Onset: 92-06-6311ClusodmpPbcwb gastrointestinal disorders (1 source)Constipation, unspecified; Translations: [Constipation, unspecified] Onset: 79-68-5779ZgeilzcnEdmcx inflammatory condition of skin (4 sources)Pruritus ani; Translations: [Pruritus ani]Onset: 39-02-0075Uyownesq Other lower respiratory disease (13 sources)H/O: respiratory -52-9798EpfqxzdkDucjd nutritional; endocrine; and metabolic disorders (12 sources)Weight uquv74-11-4419JbsbignyXfzll nutritional; endocrine; and metabolic disorders (1 source)Abnormal weight loss; Translations: [Abnormal weight loss]Onset: 05-99-9822CfvptkqyQfeos and delivery including normal (20 sources)Encounter for supervision of normal first , first trimester; Translations: [Encounter for supervision of normal , unspecified, unspecified trimester]Onset: 06-12-7218KizvdywrBwptj screening for suspected conditions (not mental disorders or infectious disease) (13 sources)Encounter for screening for malignant neoplasm of cervix; Translations: [Encounter for screening, unspecified]Onset: 12-09-2020 EpisodicResidual codes; unclassified (3 sources)Body mass index 20-24 - normal; Translations: [Body mass index (BMI) 21.0-21.9, adult]Onset: 97-81-9781JoegitkyUafnixzy codes; unclassified (1 source)Family history of malignant neoplasm of digestive organ; Translations: [Family history of malignantneoplasm of digestive organs]Onset: 11-30-2022 EpisodicResidual codes; unclassified (11 sources)Family history of cancer of -07-4098JydzwrucElofdmzu codes; unclassified (4 sources)Family history of autism; Translations: [Family history of other mental and behavioral disorders]Onset: 751544-29-4589LvpucxvgAikhsfng codes; unclassified (2 sources)Gestation period, 13 weeks; Translations: [13 weeks gestation of ]15-57-1483WeofihpdWhpxbewj codes; unclassified (15 sources)History of previous intrauterine growth restricted ; Translations: [Personal history of other complications of , childbirth and the puerperium]Onset: 306654-04-3412RdihvjuhJpmzztwt codes; unclassified (2 sources)Gestation period, 17 weeks; Translations: [17 weeks gestation of ]77-20-7855QdpjfnxxChtogqnc codes; unclassified (1 source)Gestation period, 20 weeks; Translations: [20 weeks gestation of ]66-20-2418GcohiivfGqhseryn codes; unclassified (7 sources)History of premature rupture of membranes; Translations: [Personal history of other complications of , childbirth and the puerperium]Onset: 924038-91-3935KgvgoqhzYzbyzitg codes; unclassified (2 sources)Gestation period, 21 weeks; Translations: [21 weeks gestation of ]18-36-8086JuunnjjnOyfculwu codes; unclassified (2 sources)Personal history of other complications of , childbirth and the puerperium; Translations: [Personal history of other complications of , childbirth and the puerperium]Onset: 84-05-0381KnowffyzZuhqcsfx codes; unclassified (1 source)20 weeks gestation of ; Translations: [20 weeks gestation of ]Onset: 69-80-6632QqbclhbqTokxbosj codes; unclassified (2 sources)Gestation period, 25 weeks; Translations: [25 weeks gestation of ]75-56-3277HfmygimzHvijymsv codes; unclassified (2 sources)Gestation period, 28 weeks; Translations: [28 weeks gestation of ]96-01-7235QreqblabSdjuqfig codes; unclassified (2 sources)Gestation period, 30 weeks; Translations: [30 weeks gestation of ]00-38-0716BonsbqvcDpyymgck codes; unclassified (2 sources)Gestation period, 32 weeks; Translations: [32 weeks gestation of ]80-14-8392AndennwdPdbirbw disorders (20 sources)Hypothyroidism, unspecified; Translations: [Hypothyroidism]Onset: 25-35-4566MonobjdOthzjpl disorders (12 sources)Disorder of thyroid, unspecified; Translations: [Disorder of thyroid gland]Onset: 03-26-9601LimjdcnbFjbnqbkufwhy (13 sources)Body mass index 20-24 - tugnog08-99-6183Mbmmssolqiql (13 sources)Kld--69grrbks15-20-1722Fhquslyaszwa (5 sources)Pain of knee ezwnyi66-01-0996Aeowcavuvnez (8 sources)Patient encounter dmjaem42-00-7666Rhlisofvtzsj (3 sources)Rectum ktgtymt42-98-0395Bzbwfikfjdpf (8 sources)Finding of sensation of -52-9712Xtfcfprmrnem (1 source)Hx previous FGROnset: 50-38-5904Xeurkcj tract infections (13 sources)Acute cystitis; Translations: [Acute cystitis without hematuria] Onset: 27-85-7346Nerpflbg Past or Other Problems Problem ClassificationProblemDateDocumented DateEpisodic/ChronicEarly or threatened labor (6 sources)Premature uterine contraction; Translations: [False labor before 37 completed weeks of gestation, third trimester]Onset: 04-21-2021 Resolved: 116179-76-6851QqnmrxewXopky complications of (3 sources)Disorder of ; Translations: [Maternal care for other known or suspected poor growth,unspecified trimester, not applicable or unspecified]Onset: 03-03-2021 Resolved: 358612-13-9913UqktuvhvLycum complications of (3 sources)Short cervical length in ; Translations: [Cervical shortening, third trimester]Onset: 05-19-2021 Resolved: 257096-68-3401TwdejgljRxpgo complications of (2 sources)Endocrine, nutritional and metabolic diseases complicating , second trimester; Translations: [Endocrine, nutritional and metabolic diseases complicating , second trimester]Onset: 74-08-9904XduomagzTegnx female genital disorders (4 sources)Other specified noninflammatory disorders of vagina; Translations: [OTH SPEC NONINFLAMMATORY D/O VAGINA]Onset: 02-10-4664MnwhmnirLdhkccxojeqjry and other problems of amniotic cavity (3 sources) premature rupture of membranes ; Translations: [ premature rupture of membranes, unspecified as to length of time between rupture and onset of labor, unspecified trimester]Onset: 05-30-2021 Resolved: 659629-64-3717Orouzswi Results Test NameValueInterpretationReference RangeFacilityUrinalysis macro (dipstick) panel (U)on 09-75-3446Usyeuosjb, UANegativeNegative - 4(70) +++ mg/dLNOMS HealthcareBlood, UANegativeNegative [...] mg/dLNOMS HealthcareNOMS HealthcareUrinalysis macro (dipstick) panel (U)on 48-65-5950Qryxrombl, UA NegativeNegative - 4(70) +++ mg/dLNOMS HealthcareBlood, [...] - 1.03[facility] Urobilinogen, UA0.20.2 - 12 mg/dLNOTN HealthcareNOMS HealthcareUS OB FOLLOW UP TRANSABDOMINAL APPROACHon 63-55-9619DT OB FOLLOW UP TRANSABDOMINAL APPROACH FINDINGS: A [...] Delivery: 03/23/25 Gestational Age as of 12/10/2024: 56e8fHcfskdbawk macro (dipstick) panel (U)on 58-54-0643Qtfhurzrp, UANegativeNegative - 4(70) +++ mg/dLNOMS HealthcareBlood, UANegativeNegative - 50 Cedric/mcLNOMS HealthcareClarity, UAClearNOMS Healthcare Color, UAYellowNOMS HealthcareGlucose, UANegativeNegative - 2000(110) ++++ mg/dL NOMS HealthcareInterpretation and review of laboratory resultsNormalNOTN HealthcareKetones, UANegativeNegative - 160(16) ++++ mg/dLNOTN Healthcare Leukocytes, UANegativeNegative - 500+++ Ayana/mcLNOMS HealthcareNitrite, UA NegativeNegative - PositiveNOMS HealthcarepH, UA7.05 - 9NOMS HealthcareProtein, UANegativeNegative - 2000(20) ++++ mg/dLNOTN HealthcareSpec Grav, UA1.0101 - 1.03NOTN HealthcareUrobilinogen, UA0.20.2 - 12 mg/dLNOCrittenton Behavioral HealthNOTN HealthcareGLUCOSE TOLERANCE 3 HOURon 28-43-3439NWLGHRI TOLERANCE 3 HOURHighmg/dL NOM HealthcareComment on above:GLU FAST 89 (<95) Col: 12/12/24 0842 GLU 1HR 178 (<180) Col: 12/12/24 0949 GLU 2HR 156H (<155) Col: 12/12/24 1041 GLU 3HR 103 (<140) Col: 12/12/24 1147 Interpretation and review of laboratory resultsAbnormalNOTN HealthcareCLINISYNC NOM HealthcareALL CBC WITH AUTO DIFFon 69-38-9298HBIZJFEUY ABSOLUTE QRTG3QEWYCrittenton Behavioral HealthBasophils/100 WBC (Bld)0.3 %0.2 - 2.0 %NOMS HealthcareEosinophils/100 WBC (Bld)0.5 %Low0.9 - 7.0 %[facility] FultonErythrocyte distribution width (RBC) [Ratio]12.4 %11.0 - 15.0 %NOMMercy Hospital SpringfieldHematocrit (Bld) [Volume fraction]32.4 %Low36.0 - 48.0 %[facility] FultonHemoglobin (Bld) [Mass/Vol]10.8 g/dLLow12.0 - 16.0 g/dLNOCrittenton Behavioral HealthIMMATURE GRANULOCYTES ABS AUTO0.03NOCrittenton Behavioral Health Immature granulocytes/100 WBC (Bld)0.3 %0.0 - 0.5 %[facility] FultonInterpretation and review of laboratory resultsAbnormalFulton Medical Center- FultonLYMPHOCYTES ABSOLUTE AUTO1.3NOCrittenton Behavioral HealthLymphocytes/100 WBC (Bld)14.4 %Low20.5 - 60.0 %[facility] HospitalH (RBC) [Entitic mass]33.2 pg26.7 - 34.0 pgNOCrittenton Behavioral HealthMCHC (RBC) [Mass/Vol]33.3 g/dL29.9 - 35.2 g/dLNOTN HealthcareMCV (RBC) [Entitic vol]99.7 fL High81.0 - 99.0 fLNOTN HealthcareMONOCYTES ABSOLUTE AUTO0.4NOM[facility] Healthcare Monocytes/100 WBC (Bld)4.6 %1.7 - 12.0 %NOMS HealthcareNEUTROPHILS ABSOLUTE AUTO 7HighNOTN HealthcareNeutrophils/100 WBC (Bld)79.9 %High43.0 - 75.0 %NOMS HealthcarePlatelet mean volume (Bld) [Entitic vol]10.5 fL9.5 - 13.5 fLNOTN HealthcareTBH EO #0NOMS HealthcareTBH [id number] HealthcareTBH RBC3.25LowNOMS HealthcareTBH WBC8.8NOTN HealthcareCLINISYNCNOMS HealthcareUrinalysis macro (dipstick) panel (U)on 18-91-2580Oldmgsope, UANegativeNegative - 4(70) +++ mg/dL NOMS HealthcareBlood, UANegativeNegative - 50 Cedric/mcLNOMS HealthcareClarity, UA ClearNOMS HealthcareColor, UAYellowNOMS HealthcareGlucose, UANegativeNegative - 1999(110) ++++ mg/dLNOMS HealthcareInterpretation and review of laboratory resultsNormalNOTN HealthcareKetones, UANegativeNegative - 160(16) ++++ mg/dLNOMS HealthcareLeukocytes, UANegativeNegative - 500+++ Ayana/mcLNOMS HealthcareNitrite, UANegativeNegative - PositiveNOMS HealthcarepH, UA75 - 9NOMS HealthcareProtein, UANegativeNegative - 2000(20) ++++ mg/dLNOMS HealthcareSpec Grav, UA1.011 - 1.03 NOMS HealthcareUrobilinogen, UA0.20.2 - 12 mg/dLNOTN HealthcareNOTN Healthcare Urinalysis macro (dipstick) panel (U)on 36-69-9814Czjrhmfbw, UANegativeNegative - 4(70) +++ mg/dLNOMS HealthcareBlood, UANegativeNegative - 50 Cedric/mcLNOMS HealthcareClarity, UAClearNOMS HealthcareColor, UAYellowNOMS HealthcareGlucose, UAPositiveNegative - 1999(110) ++++ mg/dLNOTN HealthcareInterpretation and review of laboratory resultsAbnormalNOMS HealthcareKetones, UANegativeNegative - 160(16) ++++ mg/dLNOTN HealthcareLeukocytes, UANegativeNegative - 500+++ Ayana/mcL NOM HealthcareNitrite, UANegativeNegative - PositiveNOMS HealthcarepH, UA65 - 9 NOMS HealthcareProtein, UANegativeNegative - 1999(20) ++++ mg/dLNOTN Healthcare Spec Grav, UA1.0151 - 1.03NOTN HealthcareUrobilinogen, UA1.00.2 - 12 mg/dLNOTN HealthcareNOTN HealthcareALL THYROID STIM HORMONEon 08-50-8720QGG Qn2.68 m[IU]/L [facility] FultonCLINISYNCNOMS HealthcareAFP, SERUM, OPEN SPINA BIFIDAon 90-11-9746IZN MOM0.82.[facility] FultonAFP VALUE34.7 ng/mL.[facility] HealthcareCOMMENT: Comment.[facility]- FultonComment on above:Alie Moon, Ph.D., [facility] Director References: Available Upon Request. Multiples Of Median Cutoffs For AFP Elevations Murphy 2.5 Black 2.8 IDD 2.0 Twins 4.5 Abbreviation Definitions IDD - Insulin Dep Diabetes OSBR - Open Spina Bifida Risk For further inquiries contact [employer] at [phone]. This test was developed and its performance characteristics determined by [employer]. It has not been cleared or approved by the Food and Drug Administration. Performed at: [facility] [address] [place], [place] [id number] Radio Technician: Pily Meraz [facility]ly [facility], Phone: [phone] GEST. AGE ON COLLECTION DATE17.3. weeksNOTN HealthcareGESTAT. AGE BASED ONLMP. [facility] HealthcareComment on above:Recalculations are not recommended when gestational dating by LMP and ultrasound are within 10 days. INSULIN DEP DIABETESNo.[facility] HealthcareINTERPRETATIONComment.[facility] Comment on above:Interpretation: Screen Negative This result [...] Customer Services to discuss available options. The [employer] recommends amniocentesis be offered to women age 35 and older. MATERNAL AGE AT EDD25.1. yrNOTN HealthcareMULTIPLE GESTATIONNo.[facility] Healthcare OSBR RISK 1 [id number].[facility] HealthcareRACECaucasian.[facility] HealthcareRESULTSReport. [facility] HealthcareTEST RESULTS:Negative.[facility]- FultonXdwfckueqdWSOGVZ415. lbsNOTN HealthcarePREGNANCY N N LMP [id number] 2 17 N 1 Y 134 N N N N N White/ CLINISYNCNOCrittenton Behavioral HealthUrinalysis macro (dipstick) panel (U)on 10-15-2024 Bilirubin, UANegativeNegative - 4(70) +++ mg/dLNOTN HealthcareBlood, UANegative Negative - 50 Cedric/mcLNOTN HealthcareClarity, UAClearNOTN HealthcareColor, UA YellowNOMS HealthcareGlucose, UANegativeNegative - 2000(110) ++++ mg/dLSEVIER VALLEY [facility]OSPITAL HealthcareInterpretation and review of laboratory resultsNormalFulton Medical Center- [facility]on Ketones, UANegativeNegative - 160(16) ++++ mg/dLSEVIER VALLEY HOSPITAL HealthcareLeukocytes, UA NegativeNegative - 500+++ Ayana/mcLNOTN HealthcareNitrite, UANegativeNegative - PositiveNOTN HealthcarepH, UA65 - 9NOTN HealthcareProtein, UANegativeNegative - 2000(20) ++++ mg/dLNOTN HealthcareSpec Grav, UA1.0151 - 1.03NOTN Healthcare Urobilinogen, UA0.20.2 - 12 mg/dLSalem Memorial District Hospital HealthcareGLUCOSE 1 HOURon 13-43-7280Ojvsuhf [Mass/Vol]108 mg/dLNINF - 130 mg/dLSEVIER VALLEY HOSPITAL HealthcareCLINISYNC [facility]- FultonALL MISCELLANEOUS TESTon 35-10-8765JLMFPGRHLYRNV TESTCOMMENT.[facility] HealthcareComment on above:Test Ordered: [id number] Parvovirus B19, Human, IgG/IgM Parvovirus B19, IgG 0.1 index BN Reference Range: 0.0-0.8 Negative <0.9 Equivocal 0.9 - 1.1 Positive >1.1 Parvovirus B19, IgM 0.1 index Reference Range: 0.0-0.8 Negative <0.9 Equivocal 0.9 - 1.1 Positive >1.1 Performed at: [address] [id number] Radio Technician: Darion Moon MD, Phone: [phone] Performed at: [address] [id number] Radio Technician: Madi Maloney PhD, Phone: [phone] Parvovirus B19 (Human), IgG, IgM CLINISYNCNOMS HealthcareALL MISCELLANEOUS TESTon 31-15-5996BGLMNHEIPHXIA TEST COMMENT.NOMS HealthcareComment on above:Test Ordered: [id number] Parvovirus B19, Human, IgG/IgM Parvovirus B19, IgG 0.1 index Reference Range: 0.0-0.8 Negative <0.9 Equivocal 0.9 - 1.1 Positive >1.1 Parvovirus B19, IgM 0.1 index Reference Range: 0.0-0.8 Negative <0.9 Equivocal 0.9 - 1.1 Positive >1.1 Performed at: [address] [id number] Radio Technician: Darion Moon MD, Phone: [phone] Performed at: [address] [id number] Radio Technician: Madi Maloney PhD, Phone: [phone] Parvovirus B19 (Human), IgG, IgM CLINISYNCNOMS HealthcareALL CBC WITH AUTO DIFFon 60-92-0178COQHMDJOC ABSOLUTE SBKA8WULI HealthcareBasophils/100 WBC (Bld)0.5 %0.2 - 2.0 %[facility] Eosinophils/100 WBC (Bld)0.5 %Low0.9 - 7.0 %NOMS HealthcareErythrocyte distribution width (RBC) [Ratio]12.3 %11.0 - 15.0 %NOMS HealthcareHematocrit (Bld) [Volume fraction]38.5 %36.0 - 48.0 %NOMS HealthcareIMMATURE GRANULOCYTES ABS AUTO0.02NOTN HealthcareImmature granulocytes/100 WBC (Bld)0.3 %0.0 - 0.5 % [facility] FultonInterpretation and review of laboratory resultsAbnormalNOTN HealthcareLYMPHOCYTES ABSOLUTE AUTO1.6NOMS HealthcareLymphocytes/100 WBC (Bld)21 %20.5 - 60.0 %[facility] HospitalH (RBC) [Entitic mass]33.5 pg26.7 - 34.0 pgSoutheast Missouri HospitalHC (RBC) [Mass/Vol]35.6 g/mPFofm42.9 - 35.2 g/dLSoutheast Missouri HospitalV (RBC) [Entitic vol]94.1 fL81.0 - 99.0 fLFulton Medical Center- FultonMONOCYTES ABSOLUTE AUTO 0.4NOMS HealthcareMonocytes/100 WBC (Bld)5.1 %1.7 - 12.0 %[facility] NEUTROPHILS ABSOLUTE AUTO5.6NOCrittenton Behavioral HealthNeutrophils/100 WBC (Bld)72.6 %43.0 - 75.0 %[facility] FultonPlatelet mean volume (Bld) [Entitic vol]11.1 fL9.5 - 13.5 fLFulton Medical Center- FultonTBH EO #0NOCrittenton Behavioral HealthTBH KTI100NMDIScotland County Memorial Hospital RBC4.09Low [facility] WBC7.8[facility]- FultonCLINISYNCCBC and differentialon 98-15-7012Qieamcbrew (Bld) [Volume fraction]39 %36 - 46 %[facility] Platelets (Bld) [#/Vol]211 10*3/uL150 - 399 10*3/uLProMedica Health SystemWBC (Bld) [#/Vol]7.8 10*3/mL3.3 - 10.0 10*3/mLRockingham Memorial HospitalMedica University Hospitals [facility] System SystemDrug Screen, Urineon 41-38-8291Okhfoyqlxvv/MethamphetamineNegativeProMedica Health System BarbituratesNegativeProMedica Health SystemBenzodiazepinesNegativeProMedica Health SystemCocaine MetaboliteNegativeRockingham Memorial HospitalMedica Health SystemMethadoneNegative ProMedica Health SystemOpiatesNegativeRockingham Memorial HospitalMedica Health SystemOxycodoneNegative ProMedica Health SystemPhencyclidineNegativeProMedica Health SystemThc Marijuana, UrineNegativeProMedica Flower HospitalHBV surface Ag IA Qlon 08-21-2024 Hepatitis B Surface AntigenNegativeProMedica Flower HospitalHCV Ab IA Qlon 36-92-4681QBE Ab Ql (S)Non-ReactiveProMedica Flower HospitalHIV 1+2 Ab+HIV1 p24 Ag IA Qlon 93-37-2703WMB 1&2 AB/AGNon-ReactiveProMedica Flower HospitalHemoglobin A1con 97-45-9233DpF7c (Bld) [Mass fraction]5.6 %4.0 - 6.0 %ProMedica Flower HospitalLaboratory - Hematology and Cell countson 73-05-4460Efynxctydt (Bld) [Mass/Vol]13.7 g/dL12.0 - 16.0 g/dLFulton Medical Center- FultonNo Panel Informationon 77-70-3048YGSP HealthcareRubella IGG immune statuson 76-01-3282Wuiyfoc immune IgGimmuneProMedica Flower HospitalT. pallidum IgG+IgM IA Ql (S)Ordered By: Nadira Salazar on 50-23-5122KyjivqdlFbo-ReactiveProMedica Flower HospitalTSHon 23-88-1174Mhnkpda Stimulating (3Rd Generation) Hormone/ Tsh7.721PWright-Patterson Medical CenterType and screenon 04-22-2196Obe/Rh(D)PositiveProMedica Flower HospitalHCG ( test) Ql (U)on 56-12-8797Qwrrjhbvlsylqw and review of laboratory resultsAbnormalFulton Medical Center- FultonPreg Test, UrPositiveNegativeSalem Memorial District Hospital HealthcareUS OB TRANSVAGINALon 18-87-7777MG OB TRANSVAGINALEXAM: US OB TRANSVAGINAL HISTORY: Dating. [...] II, MD, PHD at 20-Aug-2024 10:22:40 AM [facility] TeleradiologyNormalNot AvailableComment on above:Order Comment: US OB TRANSVAGINAL No LMP recorded.Urinalysis macro (dipstick) panel (U)on 58-96-9327Mpzzmgcga, UA NegativeNegative - 4(70) +++ mg/dLNOMS HealthcareBlood, [...] - 12 mg/dLNOMS HealthcareNOMS HealthcareAmbulatory Visit Summaryon 59-17-2351Dleepycgmu Visit SummaryAmbulatory Visit Summary YANA CHURCH :2000 [...] 8:40 AM EDT With: Marta Rivas Where: [facility] [address] [place] [address], [address] [place] [id number] Medications What How Much When Why Instructions [...] you for choosing us for your care. [facility] Medicine Office/Clinic Noteon 33-72-9526Ukbwhp Medicine Office/Clinic NoteFahillcrest hospital Medicine Office/Clinic Note Chief Complaint Establish care [...] anymore, managed with tylenol Social History: Occupation: [employer] Family life: home with and daughter Diet: no restrictions Caffeine: 1 cup coffee/day Exercise: active lifestyle Alcohol use: denies Drug use: denies Smoking status: denies Health Maintenance: Routine labs: thyroid labs 06/2024, declines further labs Pap (21-64yo): 04/2023 Specialists: Banner Painter: krysta Dentist: krysta OBGYN: Joanna Review of [...] other medications. Recheck TSH/T (more content not included)...[facility] Comment on above:Result Comment: Electronically Signed By: Marta Rivas\.br\Date and Time Signed: 07/09/24 08:35 EDTAmbulatory Visit Summaryon 67-12-2473Vkuwkypsqk Visit SummaryAmbulatory Visit Summary YANA CHURCH :2000 [...] 8:00 AM EDT With: Marta Rivas Where: [facility] [address] [facility], [facility] [place] [address]- Medications What How Much When Why Instructions New amoxicillin-clavulanate (Augmentin 875 mg-125 mg Tab) 1 Tablets By Mouth Every 12 hours Acute sinusitis Duration: 10 Days Pickup at [facility] Unchanged levothyroxine (Synthroid 100 mcg Tab) 1 Tablets By Mouth Every day Pharmacy Information [facility]: [address] [place], [place] [id number] [phone] Allergies No Known Allergies Problems Ongoing - [...] you for choosing us for your care. [facility] Medicine Office/Clinic Noteon 29-86-3954Taffvy Medicine Office/Clinic NoteFahillcrest hospital Medicine Office/Clinic Note Chief Complaint possible sinus [...] for 10 day(s), 20 tab(s), Refill(s) 0, [facility], 166, cm, 07/05/24 15:34:00 EDT, Height/Length [...] When Contact Information Julienne BARTLETT, Ham Montano, [facility], [address], [address] [phone] Additional Instructions: as scheduled with Marta Patient Education Sinus Infection, Adult, Traj-dg-Xecv How to Perform a Sinus Rinse, Strg-zu-Lxew Problem List/Past Medical History Ongoing Acute sinusitis [...] inactivated (more content not included)...Normal [facility] HospitalComment on above:Result Comment: Electronically Signed By: Julienne BARTLETT, Ham Montano\.br\Date and Time Signed: 07/05/24 16:06 EDT CHEMISTRYOrdered By: SYSTEM SYSTEM on 38-63-5231Oqou T4 [Mass/Vol]0.82 ng/dL Normal0.58 - 1.64 ng/dLRemisol ChemTSH Qn3.09 m[IU]/LNormal0.34 - 5.60 mcIU/mL Remisol ChemFree T4on 72-13-0540Slob T4 [Mass/Vol]0.82 ng/dLNormal0.58-1.[address] [facility] HospitalComment on above:Performed By: #### [id number] #### [facility] Laboratory [address] [place], [place] [address]RFNlx 34-75-6923RQL Qn3.09 m[IU]/LNormal0.34-5.60[facility] HospitalComment on above:Performed By: #### [id number] #### [facility] Laboratory [address] [place], [place] [address]XTI EXTRACTION AND HOLDon 19-49-3590YgxqafCdnsvo Puregene Reagents from QiagenInvalid Interpretation [facility] on above:Order Comment: Release to patient->AutomaticNucleic Acid Concentration 273.2 ng/uLInvalid Interpretation [facility] on above: Order Comment: Release to patient->AutomaticNucleic Acid Purity1.90Invalid Interpretation Code1.70-2.10[facility] on above:Order Comment: Release to patient->AutomaticSignature .Invalid Interpretation [facility] on above:Order Comment: Release to patient->AutomaticStorage and Special InstructionsInvalid Interpretation [facility] on above:Order Comment: Release to patient->AutomaticResult Comment: The extracted DNA is stored in the [facility] at -70 degrees C and is being held for future testing. If there are any questions regarding this sample, please contact the [facility] at [phone].Total DNA Yield82.0 ugInvalid Interpretation [facility] on above:Order Comment: Release to patient->AutomaticTotal Volume FQC097 ulInvalid Interpretation Code [facility] on above:Order Comment: Release to patient->AutomaticIGP,APTIMA HPV,AGE GDLNon 42-35-0253SFJ GDLN ACOG TESTINGNote. NOMS HealthcareComment on above:TESTS RESULT FLAG UNITS REF RANGE LAB Clinician Provided Cytology Information Source.............Cervix;Endocervix No. of containers..01 ThinPrep Vial Age Maicolo ACOG Francheska... FLAG LEGEND: L-Low Normal,H-High Normal,LL-Alert Low,HH-Alert High <-Panic Low,>-Panic High,A-Abnormal,AA-Critical Abnormal Performed at: 01 = Lab[address] [place] [address] Sugey Torres MD, IGP, RFX APTIMA HPV ASCUNote.[facility] HealthcareComment on above:TESTS RESULT FLAG UNITS REF RANGE LAB DIAGNOSIS: 02 NEGATIVE FOR INTRAEPITHELIAL LESION OR MALIGNANCY. Specimen adequacy: 02 Satisfactory for evaluation. Endocervical and/or squamous metaplastic cells (endocervical component) are present. Performed by: 02 Yudy Rhoades, Latex Spooler ([facility]) . 02 Note: Note 02 The Pap [...] Low,>-Panic High,A-Abnormal,AA-Critical Abnormal Performed at: [address] [address] Sugey Torres MD, Performed at: = - [facility] [address] [id number] Radio Technician: Sugey Torres MD, Phone: [phone] Performed at: - [address] [id number] Radio Technician: Sugey Torres MD, Phone: [phone] BRUSH-SPATULA CERVIX ENDOCERVIX CLINISYNCNOMS HealthcareCoding Summary.on 09-18-8360Ysyqjp Summary. QJISZqiu45VHa8rMw+PGhlYWQ+YB3YCRQeH48frUMkkV2mN2EHBMcTEblgOLKKSTcKSyHcstTnEX2cvB NjZXJu [file] F54gwFOeb7S7V (more content not included)...Normal[facility] CHEMISTRYOrdered By: SYSTEM SYSTEM on 05-38-6332Mqsk T4 [Mass/Vol]0.92 ng/dL Normal0.58 - 1.64 ng/dLRemisol [facility] Qn3.37 m[IU]/LNormal0.34 - 5.60 mcIU/mL Remisol ChemConsent for Treatmenton 11-14-6595Phdvdes for Treatment [id number]#1.00TIFFNormalMercy Health St. [facility] HospitalFree T4on 35-85-5111Jiin T4 [Mass/Vol]0.92 ng/dLNormal0.58-1.64[facility] HospitalComment on above:Performed By: #### [id number] #### [facility] [address] [place] [address]QCIvy 51-21-4709RWE Qn3.37 m[IU]/LNormal0.34-5.60[facility] HospitalComment on above:Performed By: #### [id number] #### [facility] [address] [place], [place] [address]Fmewxkipxw Visit Summaryon 34-46-8834Ppsibyukfp Visit Summary YANA CHURCH :2000 Visit Date:08/08/2023 [...] you for choosing us for your care. [facility] Medicine Office/Clinic Noteon 90-19-8954Kjcbcu Medicine Office/Clinic NoteChief Complaint f/u for hypothyroid [...] Unspecified hemorrhoids) Resolved, no additional complaints. saw [facility] for screening colonoscopy/diagnostic colonoscopy due to constipation [...] with voice recognition artificial intelligence software, specifically [employer]. [employer] and or [employer]. Substitutions may have occurred due to the [...] Social History Alcohol Curren (more content not included)...[facility] EastComment on above:Result Comment: Electronically Signed By: Ya [...] Follow these instructions at home: ? Take fsgm-tfj-oaqulln and prescription medicines only as told by [...] provider. Document Revised: 03/09/2022 Document Reviewed: 03/09/2022 [employer] Patient Education ? 2022 [employer]. Gastroenterology Hemorrhoids Hemorrhoids are swollen veins in and around the rectum or anus. There are two types of hemorrhoids: ? Internal hemorrhoids. These occur in the veins that are just inside the rectum. They may poke through to the outside and become irritated and painful. ? External hemorrhoids. These occur in the veins that are (more content not included)...NormalMer[facility] Health St. [facility] HospitalPAP [id number] 05-20-2023. trachomatis rRNA FRANSISCO+probe Ql (Cvx)NegativeInvalid Interpretation CodeNegative [facility] HospitalComment on above:Performed By: #### [id number] ####[facility] Clzhijzbqj681 [facility] Hospitalradharockefeller war demonstration hospitalamerico [id number] Cytology report Cyto stain Doc (Cvx/Vag)NoteInvalid Interpretation [facility] CenterComment on above:Result Comment: TESTS RESULT FLAG UNITS REF RANGE LAB Clinician Provided Cytology Information Source.............Cervix No. of containers..01 ThinPrep Vial DIAGNOSIS: 01 NEGATIVE FOR INTRAEPITHELIAL LESION OR MALIGNANCY. Specimen adequacy: 01 Satisfactory for evaluation. Endocervical and/or squamous metaplastic cells (endocervical component) are present. Performed by: 01 Erum Mckenzie, Latex Spooler ([facility]) . 01 Note: Note 01 The Pap [...] <-Panic Low,>-Panic High,A-Abnormal,AA-Critical Abnormal Performed at: [address] [address] Sugey Torres MD, Bjemzftag By: #### [id number] ###[facility] [address] [place], [id number] 16+18+31+33+35+39+45+51+52+56+58+59+66+68 DNA Probe+sig amp Ql (Cvx)Negative Invalid Interpretation CodeNegativeFisher St. Agnes HospitalComment on above: Result Comment: This nucleic acid amplification test detects fourteen high-risk HPV types (16,18,31,33,35,39,45,51,52,56,58,59,66,68) without differentiation.Performed By: #### [id number] ####[facility] Amrtccsghh115 [facility], [id number]. gonorrhoeae rRNA FRANSISCO+probe Ql (Cvx) NegativeInvalid Interpretation CodeNegMarion HospitalComment on above:Performed By: #### [id number] ####[facility] Uxfvzmzrdj602 [facility] [id number]. vaginalis rRNA FRANSISCO+probe Ql (Unsp spec)NegativeInvalid Interpretation CodeNegativeMercy Health St. [facility] Comment on above:Result Comment: Performed at: [facility] [address] [place], [place] [id number] MD Brian Mayes Performed at: =G [facility] [place] [address], [place] [id number] MD Brian MayesPerformed By: #### [id number] ####[facility] [address] [place] [address] [id number] Medicine Office/Clinic Noteon 12-39-0271Mwfyzp Medicine Office/Clinic NoteChief Complaint Pap, f/u UTI [...] was performed without the assistance of medical data entry clerk as witness Pelvic Exam: Vulva: normal appearance, [...] up every 3-5 years based on results PATTERN STORAGE CLERK referral if needed for further testing or [...] 6 months (more content not included)...Normal[facility] Comment on above:Result Comment: Electronically Signed By: Ya Wang\.irvni\Date and Time Signed: 05/16/23 15:38 ESTPAP [id number] 05-16-2023 Gynecological Body SiteCERVIXNormalMercy Health St. Elizabeth Youngstown HospitalComment on above: Performed By: #### [id number] ####[facility] [address] [id number] Educationon 80-04-2861Hewhzwv Education Obstetrics and Gynecology Pap Test Why [...] including vitamins, herbs, eye drops, creams, and uztx-mom-wccddtb medicines. ? Any bleeding problems you have. [...] provider. Document Revised: 06/05/2021 Document Reviewed: 06/05/2021 [employer] Patient Education ? 2022 [employer]. Oncology Cancer Screening for Women A cancer [...] How i (more content not included)...NormalMercy Health St. [facility] HospitalConsent for Treatmenton 40-98-1129Jxhdosw for Treatment [id number]#1.00TIFFNormalMer[address] Health St[address] [facility] HospitalUA With Cult Reflexon 42-28-6152Bdsdiyxph Ql (U)NegativeNormalNegative [facility] HospitalComment on above:Performed By: #### [id number] ####[facility] [address] [place] [address] Clarity (U)CLEARNormalClearMercy Health St. Elizabeth Youngstown HospitalComment on above:Performed By: #### [id number] ####[place] [address] [place], [place] [address]Topnk (U)YELLOWNormalYellowMercy Health St. [facility] Comment on above:Performed By: #### [id number] ####[facility] Nj[address]blppdx[address] [place], [place] [address]Nyfqlnhemn cells.squamous LM.HPF (Urine sed) [#/Area]4-2Arnbjy1-5Aqvgau St. Agnes HospitalComment on above: Performed By: #### [id number] ####[facility] [address] [place], [place] [address]Dhcrrbq Test strip (U) [Mass/Vol]NegativeNormal NegativeMercy Health St. Elizabeth Youngstown HospitalComment on above:Performed By: #### [id number] ####[facility] [address] [place] [address] Hemoglobin Ql (U)NegativeNormalNegativeMercy Health St. Elizabeth Youngstown HospitalComment on above:Performed By: #### [id number] ####[facility] Q[address]pydh[address] [place], [place] [address]Lfewpre (U) [Mass/Vol]NegativeNormalNegMarion HospitalComment on above:Performed By: #### [id number] ####[address] [address] [place].plasma/[place].RBC (Bld) [Mass ratio]9-4Yrustf7-6Ufhcqc St. Agnes HospitalComment on above:Performed By: #### [id number] ####[address] [address]Xwcaslv Ql (U)NegativeNormal NegativeMercy Health St. Elizabeth Youngstown HospitalComment on above:Performed By: #### [id number] ####[address] [address]yS (U)6.0 [pH]Invalid Interpretation Code5.0-9.0[facility] HospitalComment on above:Performed By: #### [id number] ####[address] [address]Qaxkazm (U) [Mass/Vol]NegativeNormal NegativeMercy Health St. Elizabeth Youngstown HospitalComment on above:Performed By: #### [id number] ####[address] [address] Specific gravity (U) [Rel density]>=1.030Invalid Interpretation Code1.005-1.[address] [facility] HospitalComment on above:Performed By: #### [id number] ####[address] [address]Cjns of Urine collection methodClean CatchNormalMercy Health St. Elizabeth Youngstown HospitalComment on above:Performed By: #### [id number] ####[address] [address]Jlgplewubhtv Qn (U)0.2 {Mehdi'U}/dLNormal0.0-1.[address] [facility] HospitalComment on above:Performed By: #### [id number] ####[address] [address]IAC Auto Ql (U)NegativeNormalNegativeMercy Health St. Elizabeth Youngstown HospitalComment on above: Performed By: #### [id number] ####[address] [place], [place] [address]LYZ LM.HPF (Urine sed) [#/Area]4-4Fqtcex3-4Izugev [facility] Agnes HospitalComment on above:Performed By: #### [id number] ####[facility] X[address]dfz[address] [place], [place] [address]DZVVZXXBOL Ordered By: Alphonso Wang on 83-82-1722Wbhwqxqnb Ql (U)Negative (03/24/23 11:15 AM)NormalNegativeINTEGR[facility] UA Auto SSClarity (U)Clear (03/24/23 11:15 AM)NormalClearFJACKSON COUNTY [facility] UA Auto SSColor (U)Yellow (03/24/23 11:15 AM)NormalYellowINTEGRIS HEALTH [facility] UA Auto SSEpithelial cells.squamous LM.HPF (Urine sed) [#/Area]0-2 /HPFNormal0-2/HPFINTEGRIS HEALTH [facility] UA Auto SSGlucose Test strip (U) [Mass/Vol]Negative (03/24/23 11:15 AM)NormalNegativeINTEGRIS [facility]ALTH [facility] UA Auto SSHemoglobin Ql (U)Negative (03/24/23 11:15 AM)NormalNegativeINTEGRIS [facility] UA Auto SSKetones (U) [Mass/Vol]Negative (03/24/23 11:15 AM)NormalNegativeINTEGRIS HEALTH [facility] UA Auto SSLithium.plasma/[place].RBC (Bld) [Mass ratio]0-3 /HPFNormal0-3/HPFINTEGRIS HEALTH [facility] UA Auto SSNitrite Ql (U)Negative (03/24/23 11:15 AM)NormalNegativeINTEGRIS [facility]ALTH [facility] UA Auto SSpH (U)6.0 *NA* (03/24/23 11:15 AM)Invalid Interpretation Code5.0 - 9.0[facility] UA Auto SSProtein (U) [Mass/Vol]Negative (03/24/23 11:15 AM)NormalNegativeINTEGRIS [facility]ALTH [facility] UA Auto SSSpecific gravity (U) [Rel density] >=1.030 *NA* (03/24/23 11:15 AM)Invalid Interpretation Code1.005 - 1.030[facility] UA Auto SSUA Spec DescClean Catch (03/24/23 11:15 AM)NormalINTEGRIS HEALTH [facility]MON[facility] UA Auto SSUrobilinogen Qn (U)0.7583029 {Mehdi'U}/dLNormal0.0 - 1.0 EU/dLINTEGRIS HEALTH [facility]MON[facility] UA Auto SSWBC Auto Ql (U)Negative (03/24/23 11:15 AM)NormalNegativeINTEGRIS [facility]ALTH [facility] UA Auto SSWBC LM.HPF (Urine sed) [#/Area]0-5 /HPFNormal0-5/HPFINTEGRIS HEALTH [facility]MON[facility] UA Auto SST3 Freeon 77-44-1647Hfvp T3 [Mass/Vol]2.9 pg/mL Invalid Interpretation Code2.0-4.4Fisher St. Agnes HospitalComment on above: Result Comment: Performed at: [facility] [address] [id number] PhD Haider BarrazaPerformed By: #### [id number], [id number] ####[facility] Ndajegvsci[address] [place], [place] [address]XB Retroperitoneal Completeon 71-74-4263VF Retroperitoneal CompleteExam Date/Time: 03/22/2023 09:49 EST Reason [...] Isidoro Taylor MD Transcribed by: RAZIA Technologist: Hsusain St. Agnes HospitalCHEMISTRY Ordered By: SYSTEM SYSTEM on 52-23-9200Ndtv T4 [Mass/Vol]1.10 ng/dLNormal0.58 - 1.64 ng/dLRemisol ChemTSH Qn0.90 m[IU]/LNormal0.34 - 5.60 mcIU/mLRemisol Chem Consent for Treatmenton 76-62-4780Dclnezv for Treatment [id number]#1.00TIFFRegency Hospital Cleveland EastFree T4on 84-46-4715Bxtb T4 [Mass/Vol]1.10 ng/dLNormal0.58-1.64[facility] HospitalComment on above:Performed By: #### [id number], [id number] ####[facility] [address] [place], [place] [address]TMAyz 94-64-0096NWE Qn0.90 m[IU]/LNormal0.34-5.60[facility] HospitalComment on above:Performed By: #### [id number], 9353762, 5033788 ####[facility] [address] [place] [address] 45392U Urineon 67-61-1301Tlwuqdfi identified Cx Nom (U)Microbiology PROCEDURE: Urine Culture [...] was performed at: [facility], [address] [place] [address], [address] [place] [address], LldracHdonqiRegency Hospital Cleveland EastComment on above:Performed By: #### [id number] ####[facility] Vmishjfsmg[address] Ashtonrockefeller war demonstration hospitalamericoLINTHICUM [place], [place] [address]Howefy Medicine Office/Clinic Noteon 16-34-8691Lkuwbs Medicine Office/Clinic NoteChief Complaint 2 wk f/u [...] due to her gallbladder. She saw a social insurance administrator in 11/2022. She is able to schedule [...] office today shows: Negat (more content not included)...[facility] EastComment on above:Result Comment: Electronically Signed By: Ya Wang\.br\Date and Time Signed: 03/11/23 06:06 EST\.br\Electronically Co-Signed By: Annetta Blackburn\.br\Date and Time Co-Signed: 03/09/23 12:22 ESTAmbulatory Visit Summaryon 30-82-6310Mxytzonsht Visit Summary YANA CHURCH :2000 Visit Date:03/09/2023 Ambulatory Visit Instructions Your Diagnosis BMI 21.0-21.9, adult Feeling of incomplete bladder emptying Other cystitis with hematuria Hypothyroidism Tests Performed Urnls Dip Stick Auto w/o Microscopy POC 50948 Your Care Team Attending Physician - Ya [...] 10:00 AM EDT With: Ya Wang Where: [facility] Primary CareNormalRecurrent UTI (urinary tract infection), pp_set_radiology_subspecialty, [facility]\.br\ Medicati ons\.br\ What How Much When Why Instructions\.br\ New cephalexin (Keflex 500 mg Cap) 1 Capsules By Mouth 4 times a day Feeling of incomplete bladder emptying Recurrent UTI (urinary tract infection) Duration: 7 Days Pickup at [facility]\.br\ New phenazopyridine (Pyridium 200 mg Tab) 1 Tablets By Mouth 3 times a day Feeling of incomplete bladder emptying Recurrent UTI (urinary tract infection) Duration: 3 Days Pickup at [facility]\.br\ Unchanged levothyroxine (Synthroid 112 mcg Tab) [...] instructions Prior to colonoscopy. \.br\ Pharmacy Information\.br\ [facility]: [address] [place] [id number] [phone]\.br\ Test Results\.br\ Urnls Dip Stick Auto w/o Microscopy POC 84046 (03/09/2023)\.br\ Bilirubin Urine Dipstick - Negative\.br\ Blood Urine Dipstick - Trace-intact\.br\ Glucose Urine Dipstick - Negative\.br\ Ketones UrineDipstick - Negative\.br\ Leukocytes Urine Dipstick - Trace\.br\ Nitrite Urine Dipstick - Negative\.br\ Protein Urine Dipstick - Negative\.br\ Specific [place] Urine Dipstick - 1.020\.br\ Urine Appearance Urine [...] including vitamins, herbs, eye drops, creams, and xfzx-zca-pzjlxzu medicines.\.br\ ? \.br\ Whether you are or [...] communicating with your muscles.\.br\ What [facility] HospitalPatient Educationon 90-84-3255Lfjwotj Education Endocrinology Hypothyroidism Hypothyroidism is when the [...] Follow these instructions at home: ? Take wufv-ecl-xybmgsv and prescription medicines only as told by [...] provider. Document Revised: 03/09/2022 Document Reviewed: 03/09/2022 [employer] Patient Education ? 2022 [employer]. Obstetrics and Gynecology Urinary Tract Infection, Adult A urinary tract infection (UTI) is an infection of any part of the urinary tract. The urinary tractincludes the kidneys, ureters, bladder, and urethra. These organs make, store, and get rid of urinein the body. An upper UTI affects the ureters and kidneys. A lower UTI affects the bl (more content not included)...[facility] EastPhysician Referralon 52-87-3205Icigtydip [id number]#1.00TIFF [facility] EastProvider Letteron 48-94-7987Fsziiyti Letter March 02, 2023 YANA CH[address]CH [address] [place] [id number] : [address] Clay Waters is know on your insurance & we are able to schedule your EGD & Colonoscopy. Please call us at [phone] at [facility] convenience to schedule your procedure. Thank you for your prompt attention to this matter. Sincerely, [facility] 03-02-2023 Reminders From: Erum Gold To: [facility] - Reminders/Recalls; Sent: 11/30/2022 12:34:03 EDT Show up: 11/30/2022 12:34:00 EDT Subject: Ambulatory Reminder [employer] Reminder/Recall Call pt and scheduled EGD and Colonoscopy with Dr. Williamson once [employer] is approved. From: Rusty Alfred ([facility] - Reminders/Recalls) To: Yue Perez; Sent: [...] letter to patient to call office to [facility] Urineon 49-91-0392Gkmtofvk identified Cx Nom (U)Microbiology PROCEDURE: Urine Culture [...] was performed at: [facility], [address] [place] [address], [facility] , , BtqkwyVsoahxRegency Hospital Cleveland EastComment on above:Performed By: #### [id number] ####[facility] [address] [place] [address] Medicine Office/Clinic Noteon 17-48-7318Xcvxqf Medicine Office/Clinic NoteChief Complaint UTI symptoms HPI [...] color was orange in appearance due to rabe-kel-bussltj meds she was taking, normal urobilinogenpH 5.5 [...] day(s), # 10 cap(s), Refills(s) 0, Pharmacy: [facility], 166, cm, 02/21/23 13:06:00 EST, Height/Length Dosing, 58.6, kg, 02/21/23 13:06:00 EST, Weight Dosing phenazopyridine, 200 mg = 1 tab(s), Oral, TID, X 3 day(s), # 9 tab(s), Refills(s) 0, Pharmacy: [facility], 166, cm, 02/21/23 13:06:00 EST, Height/Length Dosing, 58.6, kg, 02/21/23 13:06:00 EST, Weight Dosing Urine Culture Urnls Dip Stick Auto w/o Microscopy POC 11799 2. Acute cystitis (N30.00: Acute cystitis without hematuria) #1 3. Constipation in female (K59.00: Constipation, unspecified) improving. occasional Colace OTC and Miralax 4. Hemorrhoids (K64.9: Unspecified hemorrhoids) improving, stable 5. Hypothyroidism (E03.9: Hypothyroidism, unspecified) Chronic Stable with 112 mcg daily of Synthroid _ control Weight is stable Asymptomatic- noteable tachycardia today Du (more content not included)...[facility] EastComment on above:Result Comment: Electronically Signed By: Ya [...] these instructions at home: Medicines ? Take dgjl-ozp-uucbeax and prescription medicines only as told by [...] provider. Document Revised: 10/17/2020 Document Reviewed: 10/17/2020 [employer] Patient Education ? 2022 [employer].[facility] Ambulatory Visit Summaryon 73-16-7874Pchwzffhxb Visit Summary LILIANAYANA MONTENEGRO :2000 Visit Date:11/30/2022 [...] 1:00 PM EST With: Ya Wang [facility] CareReg[facility] Gastroenterology Office/Clinic Noteon 93-36-2559Uvhubzhskoscznld Office/Clinic NoteChief Complaint constipation HPI Staff Patient [...] Refill(s) 0, Prior to colonoscopy., [id number], 166, cm, 11/30/22 12:12:00 EDT, Height/Length Dosing, [...] rhinitis Hypoglycemia Hypothyroidism Left (more content not included)...[facility] EastComment on above:Result Comment: Electronically Signed By: Daniel Gray CNP\.br\Date and Time Signed: 11/30/22 12:32 EDTPatient Educationon 91-19-9908Dwkymio EducationGastroenterology High-Fiber Eating Plan Fiber, also called [...] Bulgur wheat. Millet. Quinoa. Bran muffins. Popcorn. Glynn wafer crackers. Meats and other proteins Dewitt beans, kidney beans, and díaz beans. Soybeans. [...] Cream cheese. Sour cream. Fats and oils [place]. Beverages Soft drinks. Other foods Cakes and [...] care provider. Document Revised: (more content not included)...[facility] EastPre-Certification Formon 50-61-7016Dtd-Certification Form [id number]#1.00CD:127NormalMer[address] [facility] HospitalFahillcrest hospital Medicine Office/Clinic Noteon 99-67-4674Xyhkkw Medicine Office/Clinic NoteChief Complaint pt here for [...] visit we encourage proper diet and exercise jpye-yjz-chekdxf MiraLAX or Colace with Preparation H sowg-jaq-cywtdgz, bleeding has stopped, blood noted on toilet [...] Rectal exam was performed, I did offer crutcher helper but patient declined, external anus is normal [...] length of time on toilet, sitz bath's, wlmu-ngk-pwjejdz medications and suppositories and creams Hydrocortisone lidocaine with applicator gel ordered today to use twice daily Referral for GI referral placed today Ordered: hydrocortisone-lidocaine topical, 1 carmen, Rectal, BID, 60 EA, Refill(s) 1, [facility], 166, cm, 11/11/22 9:28:00 EDT, Height/Length Dosing, 59.4, kg, 11/11/22 9:28:00 EDT, Weight Dosing [facility] Internal Ambulatory Referral 2. Hypothyroidism [...] exercise. Orders: azelastine ophthalmic, (more content not included)...[facility] EastComment on above:Result Comment: Electronically Signed By: Ya Wang\.br\Date and Time Signed: 11/11/22 09:53 EDTPatient Educationon 15-90-6991Sqoxkwg EducationHigh-Fiber Diet Fiber, also called dietary fiber, [...] serving. ? Talk with a diet and auto radiator specialist (dietitian) if you have questions about [...] Bulgur wheat. Millet. Quinoa. Bran muffins. Popcorn. Glynn wafer crackers. Meats and other proteins [place]itt, kidney, and díaz beans. Soybeans. Split peas. [...] Cream cheese. Sour cream. Fats and oils [place]. Beverages Soft drinks. Other foods Cakes and [...] 03/07/2006 Document Revised: 01/09/2018 Document Reviewed: 01/09/2018 [employer] Patient Education ? 2019 Mobe[employer]. Gastroenterology H (more content not included)...[facility] EastAmbulatory Visit Summaryon 45-47-1460Ffzmcypllq Visit Summary YANA CHURCH :2000 Visit Date:10/08/2022 [...] f/u for hypothyroid, weight loss Where: [address] [facility], [facility] [address] [address]- Business (1) You Need to Complete the Following Anti-thyroid Abys, Blood, Routine collect, 10/08/22, Order for future visit, Lab Collect, Weight lossInvalid Interpretation CodeHypothyroidismMercy Health St. Elizabeth Youngstown HospitalAuto Diffon 33-97-0879Thgltymly/100 WBC (Bld)1.1 %Normal0.0-2.[address] [facility] HospitalComment on above:Order Comment: Order Added by Discern Expert.Performed By: #### [id number], 32624831, 63734576, 3888959, 0389445 ####[facility] [address] [place] [address] Basophils/Leukocytes Auto (Bld) [Pure # fraction]0.1 E9/LNormal0.0-0.2FRegional Medical CenterComment on above:Order Comment: Order Added by Discern Expert.Performed By: #### 7919869, 66454674, 20038912, 6920642, 0078597 ####[facility] [address] [place] [address] Eosinophils/100 WBC (Bld)1.2 %Normal0.0-8.0[facility] HospitalComment on above:Order Comment: Order Added by Discern Expert.Performed By: #### 2914172, 69189405, 53052878, 7518663, 6818910 ####[facility] Lab [address] [place] [address]Gfbpcgopuat/Leukocytes Auto (Bld) [Pure # fraction]0.1 E9/LNormal0.0-0.5FRegional Medical CenterComment on above: Order Comment: Order Added by Discern Expert.Performed By: #### 3248840, 26617853, 32314175, 9454163, 0271654 ####[facility] Lab [address] [place] [address]Woqzibuigha/100 WBC (Bld)41.0 %Normal 14.0-50.0[facility] HospitalComment on above:Order Comment: Order Added by Discern Expert.Performed By: #### 4074122, 18320908, 65023888, 8348026, 2587441 ####[address] [address]Eslqdxhlnrp/Leukocytes Auto (Bld) [Pure # fraction]2.3 E9/LNormal1.0-4.[address] [facility] HospitalComment on above:Order Comment: Order Added by Discern Expert.Performed By: #### 5033412, 61272317, 17051102, 2465265, 7884142 ####[address] [address] Monocytes/100 WBC (Bld)5.8 %Normal4.0-14.0[facility] HospitalComment on above:Order Comment: Order Added by Discern Expert.Performed By: #### 0474722, 62155119, 42567376, 3775334, 5461820 ####[facility] Lab [address] [place] [address]Wlbapfgcd/Leukocytes Auto (Bld) [Pure # fraction]0.3 E9/LNormal0.2-1.0[facility] HospitalComment on above:Order Comment: Order Added by Discern Expert.Performed By: #### 1491290, 95936099, 00844511, 7686491, 3495298 ####[address] [address]Yqgtypoftsw/100 WBC (Bld)50.9 %Qtiljm87.0-75.[address] [facility] HospitalComment on above:Order Comment: Order Added by Discern Expert.Performed By: #### 8675500, 39541123, 21638685, 9759222, 0437477 ####[address] [address] Neutrophils/Leukocytes Auto (Bld) [Pure # fraction]2.8 E9/LNormal2.0-7.5FRegional Medical CenterComment on above:Order Comment: Order Added by Discern Expert.Performed By: #### 3203577, 65816921, 16874916, 8302463, 8870029 ####[address] [address]EOY w/ Auto Diffon 43-07-6189Jhkhdbfuayh distribution width (RBC) [Ratio]12.6 % Cxqlku01.9-14.2FRegional Medical CenterComment on above:Performed By: #### 9165584, 70948657, 64794923, 7300335, 2704967 ####[address] [address]Gsfwfhukqy (Bld) [Volume fraction] 40.4 %Cjtggx57.0-46.0[facility] HospitalComment on above:Performed By: #### 5557384, 61108724, 37469949, 0210850, 4518527 ####[address] [address]Dxdphlibrl (Bld) [Mass/Vol] 14.1 g/iIWgeqhw30.0-16.0[facility] HospitalComment on above:Performed By: #### 2036259, 92727113, 23497920, 0375384, 5020186 ####[address] [address]HGU (RBC) [Entitic mass]32.1 lcFanrkb52.0-34.0[facility] HospitalComment on above:Performed By: #### 0168666, 93969629, 78183089, 5131352, 9211316 ####[address] [address]JUHT (RBC) [Mass/Vol]34.8 g/dLNormal 31.4-36.0[facility] HospitalComment on above:Performed By: #### 3646827, 58286950, 17503965, 3543746, 0596467 ####[facility] Lab [address] [place] [address]WBM (RBC) [Entitic vol]92.1 fLNormal 80.0-100.0[facility] HospitalComment on above:Performed By: #### 4673666, 59606870, 59220536, 2282774, 0539099 ####[address] [address]Elxfaxxa mean volume (Bld) [Entitic vol]9.1 fLNormal6.4-10.8[facility] HospitalComment on above:Performed By: #### 4595508, 74634986, 23317330, 2258503, 5601630 ####[address] [address]Ytofvoykq (Bld) [#/Vol]238.0 E9/MShzbvl895.0-500.0[facility] HospitalComment on above:Performed By: #### 0732254, 44924411, 94747038, 7131015, 3478197 ####[address] [address]DSS (Bld) [#/Vol]4.4 E12/L Normal4.3-5.9[facility] HospitalComment on above:Performed By: #### 5682566, 31446709, 47458731, 7106621, 8543738 ####[address] [address]EJF corrected for nucl RBC Auto (Bld) [#/Vol]5.6 E9/LNormal4.0-11.0[facility] HospitalComment on above: Performed By: #### 9682893, 26598073, 47203131, 5619317, 3081969 ####[facility] [address] [place], [place] [address]DUIrh 10-08-2022 Albumin [Mass/Vol]4.7 g/dLNormal3.3-5.0[facility] HospitalComment on above:Performed By: #### 3680017, 39779416, 05603315, 9595583, 5793250 ####[facility] [address] [place] [address] Albumin/Globulin (S) [Mass conc ratio]1.8Gyehgq4.1-2.2FRegional Medical CenterComment on above:Performed By: #### 2511048, 81057251, 93194631, 7174596, 4061735 ####[facility] [address] [place] [address]NVR [Catalytic activity/Vol]42 Int._Unit/ARteqwk22-02TtafjtMercy Health St. Elizabeth Youngstown HospitalComment on above:Performed By: #### 8222549, 05112729, 86601363, 7081611, 9582989 ####[facility] [address] [place], [place] [address]MOH No additional P-5'-P [Catalytic activity/Vol]15 Int._Unit/LNormal6-[address] [facility] HospitalComment on above:Performed By: #### 8069409, 09866374, 30851311, 4150127, 4295300 ####[facility] Lab [address] [place], [place] [address]Sjnyo gap [Moles/Vol]13 mmol/LNormal6-[address] [facility] HospitalComment on above:Performed By: #### 9371160, 83231487, 54858655, 0793066, 8983172 ####[facility] Lab [place], [place] [address]LJD [Catalytic activity/Vol]22 Int._Unit/LNormal5-43Fisher [facility]ford Medical CenterComment on above:Performed By: #### 4229270, 32447761, 03189326, 8793553, 4020634 ####[facility] [address] [place], [place] [address]Srldotaqa [Mass/Vol]0.5 mg/dL Normal0.0-1.1FRegional Medical CenterComment on above:Performed By: #### 1085639, 20813674, 00969963, 3378527, 7946119 ####[facility] [address] [place], [place] [address]Ajnanbd [Mass/Vol]9.4 mg/dLNormal 8.9-11.1FRegional Medical CenterComment on above:Performed By: #### 6308379, 78173540, 17073834, 5498864, 2139843 ####[facility] Lab [place], [place] [address]Cuwzahxy [Moles/Vol]107 mmol/LNormal 101-111[facility] HospitalComment on above:Performed By: #### 3263118, 01571418, 80918205, 3904478, 7419838 ####[facility] Lab [address] [place], [place] [address]YP7 [Moles/Vol]24 mmol/FNyyspo39-[address] [facility] HospitalComment on above:Performed By: #### 0535598, 20371660, 87269389, 3321438, 1030741 ####[facility] Lab [address] [place], [place] [address]Kpcvwrrakd [Mass/Vol]0.7 mg/dLNormal 0.5-1.3FRegional Medical CenterComment on above:Performed By: #### 8166003, 51206927, 48002474, 8769333, 7186178 ####[facility] Lab [address] [place], [place] [address]Kdayeclu (S) [Mass/Vol]3.2 g/dLNormal 1.4-4.0[facility] HospitalComment on above:Performed By: #### 1919901, 37260563, 71378087, 9139129, 5870420 ####[facility] Lab [address] [place], [place] [address]Wwmyzyh [Mass/Vol]105 mg/qSTrrphi31-[address] [facility] HospitalComment on above:Result Comment: If this glucose result represents a fasting glucose, interpretation should refer tothe following reference range: 55-99 mg/dLPerformed By: #### 1696491, 40905877, 87661525, 5460523, 7214565 ####[facility] [address] [place], [place] [address]Ftdckkipw [Moles/Vol]3.9 mmol/LNormal3.5-5.3FRegional Medical CenterComment on above:Performed By: #### 7893885, 74947968, 12028168, 4012208, 1007375 ####[facility] [address] [place], [place] [address]Tixhyww [Mass/Vol]7.9 g/dLHigh6.0-7.8[facility] HospitalComment on above:Performed By: #### 4506819, 27781851, 69068583, 4537832, 1305910 ####[facility] [address] [place], [place] [address]Zapaey [Moles/Vol]140 mmol/POfvxry528-494WfnybqMercy Health St. Elizabeth Youngstown HospitalComment on above:Performed By: #### 8003705, 34740737, 62309348, 9631971, 5850983 ####[facility] [address] [place], [place] [address]Csdd nitrogen [Mass/Vol]17 mg/dLNormal5-21[facility] HospitalComment on above:Performed By: #### 6254186, 54260204, 75719669, 2582153, 4839992 ####[facility] [address] [place], [place] [address]Ikvv nitrogen/Creatinine [Mass ratio]24 No KqvqlLozc54-69FdtaqwMercy Health St. [facility] Comment on above:Performed By: #### 7858208, 13876083, 71945667, 4107561, 6975031 ####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 Discussed self breast exams and other health [...] and exercise increasing. Patient encouraged to use sfhf-vzs-ijqgpdn MiraLAX or Colace, encouraged Preparation H lwhc-yik-aypjido topical treatments if needed. \ Follow-up only if needed. Patient only having minimal complaints 3. Constipation in female (K59.00: Constipation, unspecified) see #3 4. BMI 20.0-20.9, ad (more content not included)...[facility] EastComment on above:Result Comment: Electronically Signed By: Ya Wang\.br\Date and Time Signed: 10/08/22 16:30 EDTPatient Educationon 62-33-3047Ynqylru EducationEndocrinology Hypoglycemia Hypoglycemia occurs when the level [...] instructions at home: General instructions ? Take twss-pfu-facltwa and prescription medicines only as told by your health care provider. ? Monitor your blood glucose as told by your health care provider. ? If you drink alcohol: ? Limit how much you have to: ? 0?1 (more content not included)...NormalMary [facility] With T4fr Reflexon 17-89-3030TSN Qn0.58 m[IU]/LNormal0.34-5.60[facility] HospitalComment on above:Performed By: #### 7933148, 76433792, 60042835, 4091048, 3358152 ####[facility] [address] [place], [place] [address]mIKKqs 68-83-5435YSE/1.73 sq M.predicted among non-blacks MDRD (S/P/Bld) [Vol rate/Area]124 mL/min/1.73 y9Nptmsy>=59[address] Agnes HospitalComment on above:Order Comment: Order added by Discern Expert.Result Comment: Chronic kidney disease could be indicated at eGFR's of less than 60 mL/min/1.73m2. K idney failure is indicated at less than 15 mL/min/1.73m2.Performed By: #### 7409553, 12520576, 76282402, 6380085, 7217067 ####[facility] [address] [place], [place] [address]MFN ACOG PANEL 2: 21 to 29on 10-23-2021..NormalCleveland Clinic Marymount HospitalComment on above:Performed By: #### CBC #### [facility] [address] [place] [address] Dr. Rima Dinh Gdln ACOG Mnbcxrs75-71HdemwwAqsProvidence HospitalCommackinac straits hospital on above:Performed By: #### CBC #### [facility] [address] [place] [address] Dr. Rima CharlesDIAGNOSIS:CommentSelect Medical Specialty Hospital - [facility], Inc on above: Result Comment: NEGATIVE FOR INTRAEPITHELIAL LESION OR MALIGNANCY. THIS SPECIMEN WAS RESCREENED PART OF OUR RESIDENTIAL REAL ESTATE SALES MANAGER PROGRAM.Performed By: #### CBC #### [facility] [address] [place] [address] Dr. Rima CharlesMethodology:CommentSelect Medical Specialty Hospital - Boardman, Inc on above: Result Comment: This liquid based ThinPrep(R) pap test was screened with the use of an image guided system.Performed By: #### CBC #### [facility] [address] [place] [address] Dr. Rima CharlesNote:CommentSelect Medical Specialty Hospital - Board[facility], Inc on above:Result Comment: The Pap smear is a screening test designed to aid in the detection of premalignant and malignant conditions of the uterine cervix. It is not a diagnostic procedure and should not be used as the sole means of detecting cervical cancer. Both false-positive and false-negative reports do occur. .Performed By: #### CBC #### [facility] [address] [place] [address] Dr. Rima CharlesPerformed by:CommentSelect Medical Specialty Hospital - Boardman, Inc on above: Result Comment: Piter Cagle, Latex Spooler (ASCP)Performed By: #### CBC #### [facility] [address] [place] [address] Dr. Rima Bryson reviewed by:[facility] on above:Result Comment: Hannah Morejon, Supervisory Latex Spooler (ASCP) Performed By: #### CBC #### [facility] [address] [place] [address] Dr. Rima CharlesReflex Criteria:CommentSelect Medical Specialty Hospital - Board[facility], Inc on above:Result Comment: The HPV DNA reflex criteria were not met with this specimen result therefore, no HPV testing was performed. .Performed By: #### CBC #### [place] [address] [address] Rima CharlesSpecimen adequacy:CommentSelect Medical Specialty Hospital - [facility], Inc on above:Result Comment: Satisfactory for evaluation. Endocervical and/or squamous metaplastic cells (endocervical component) are present. Areas of partially obscuring blood are present.Performed By: #### CBC #### [facility] [address] [place] [address] Dr. Rima Cornell T4on 43-99-5802Kjnc T4 [Mass/Vol]1.01 ng/dLNormal0.76-1.46 [facility] on above:Performed By: #### FT4 #### [facility] [address] [place] [address] Dr. Rima BrowerHoagustín 93-88-3815NPH3.997 uIU/mLCritically high0.358-3.740The [facility] on above:Performed By: #### TSH #### [facility] [address] [place] [address] Dr. Rima CharlesVAGINITIS/VAGINOSIS DNA PROBEon 03-80-0347Ntftbva speciesNegative NormalNegativeThe [facility] on above:Performed By: #### CBC #### [facility] [address] [place] [address] Dr. Rima Moonerejoba vaginalisNegativeNormalNegativeC[facility] Comment on above:Performed By: #### CBC #### [facility] [address] [place] [address] Dr. Rima Calvo vaginalisNegativeNormalNegativeC[facility] Clinic [facility] Comment on above:Performed By: #### CBC #### [facility] [address] [place] [address] Dr. Rima CharlesCHLAMYDIA/GONOCOCCUS FRANSISCO (SWAB/URINE/PAPon 75-03-0013Jjsxejgpw trachomatis, NAANegativeNormalNegativeCleveland Clinic Marymount HospitalComment on above: Performed By: #### CBC #### [facility] [address] [place] [address] Dr. Rima CharlesNeisseria gonorrhoeae, NAANegativeNormalNegativeCleveland Clinic Marymount HospitalComment on above:Performed By: #### CBC #### [facility] [address] [place] [address] Dr. Rima CharlesVAGINITIS/VAGINOSIS DNA PROBEon 68-96-8059Hpsmhdu speciesNegative NormalNegativeCleveland Clinic Marymount HospitalComment on above:Performed By: #### VAGINT #### [facility] [address] [place] [address] Dr. Rima Moonerebenedict vaginalisNegativeNormalNegativeC[facility] Clinic [facility] Comment on above:Performed By: #### VAGINT #### [facility] [address] [place] [address] Dr. Rima Calvo vaginalisNegativeNormalNegativeC[facility] Clinic [facility] Comment on above:Performed By: #### VAGINT #### [facility] [address] [place] [address] Dr. Rima Livingston 78-89-4890DPK5.494 uIU/mLNormal0.470-4.680C[facility] Clinic Marymount HospitalComment on above:Performed By: #### CBC #### [facility] [address] [place] [address] Dr. Rima Dougherty RANGESEE [facility] HospitalComment on above: Result Comment: <0.34 UIU/ml HYPERTHYROID 0.34-5.60 UIU/ml EUTHYROID >5.60 UIU/ml HYPOTHYROIDPerformed By: #### CBC #### [facility] [address] [address] [address] Rima Barnes MATERNAL FOR SPINA BIFIDAon 34-81-9357VGC MoM0.98[facility] HospitalComment on above:Performed By: #### AFPMAT #### [facility] [address] [address] [address] Rima Barnes Value36.3 ng/mLNormalCleveland Clinic Marymount HospitalComment on above: Performed By: #### AFPMAT #### [facility] [address] [address] [address] Rima Barnes, Serum for Spina BifidaReAvita Health System Ontario Hospital Comment on above:Performed By: #### AFPMAT #### [facility] [address] [address] [address] Rima CurrieCleveland Clinic Euclid HospitalComment on above:Result Comment: Alie Moon, Ph.D., [facility] Director . References: Available Upon Request. . Multiples Of Median Cutoffs For AFP Elevations Murphy 2.5 Black 2.8 IDD 2.0 Twins 4.5 Abbreviation Definitions IDD - Insulin Dep Diabetes OSBR - Open Spina Bifida Risk . For further inquiries contact [facility] at [phone].Performed By: #### AFPMAT #### [facility] [address] [address] [address] Rima Pedro Age Collection Date16.0 weeksBucyrus Community Hospital Comment on above:Performed By: #### AFPMAT #### [facility] [address] [address] [address] Rima Pedroat, Age Based onLMPNormalCleveland Clinic Marymount HospitalComment on above:Result Comment: Recalculations are not recommended when gestational dating by LMP and ultrasound are within 10 days.Performed By: #### AFPMAT #### [facility] [address] [place] [address] Dr. Rima CharlesUniversity Hospitals Geneva Medical CenterCommackinac straits hospital on above:Performed By: #### AFPMAT #### [facility] [address] [place] [address] Dr. Rima CharlesInterpretationCleveland Clinic Euclid HospitalCommackinac straits hospital on above: Result Comment: Interpretation: Screen Negative [...] Customer Services to discuss available options. The [employer] [employer] recommends amniocentesis be offered to women age 35 and older.Performed By: #### AFPMAT #### [facility] [address] [place] [address] Dr. Rima CharlesMaternahaley Age at EDD23.4 yrBucyrus Community HospitalCommackinac straits hospital on above:Performed By: #### AFPMAT #### [facility] [address] [place] [address] Dr. Rima Erazo [facility]Commack[facility] on above: Performed By: #### AFPMAT #### [facility] [address] [place] [address] Dr. Rima CharlesOSBR Risk 1 [id number] Community HospitalCommackinac straits hospital on above: Performed By: #### AFPMAT #### [facility] [address] [place] [address] Dr. Rima Meadows.[facility] on above:Performed By: #### AFPMAT #### [facility] [address] [place] [address] Dr. Rima MccoyLancaster Municipal HospitalComment on above: Performed By: #### AFPMAT #### [facility] [address] [place] [address] Dr. Rima Urena Results:NegativeNormalThe The [facility] HospitalComment on above: Performed By: #### AFPMAT #### [facility] [address] [place] [address] Dr. Rima Del Rosario B SURFACE ANTIGEN SCREENon 29-75-8677LGaEb ScreenNegative NormalNegativeThe [facility] HospitalComment on above:Performed By: #### HBSANS #### [facility] [address] [place] [address] Dr. Rima RiosTIS C ANTIBODYon 58-12-7264Anv C Virus Ab<0.3Tyutvb1.0-0.9 [facility] on above:Result Comment: Negative: < 0.8 Indeterminate: 0.8 - 0.9 Positive: > 0.9 . The CDC recommends that a positive HCV antibody result be followed up with a HCV Nucleic Acid Amplification test (836317).Performed By: #### HCV #### [facility] [address] [place] [address] Dr. Rima Chery 1 AND 2 WITH REFLEXon 26-34-4198KNT Screen 4th Generation wRfxNon-ReactiveNormalNon ReactiveThe The [facility] HospitalCommackinac straits hospital on above: Performed By: #### HIV12 #### [facility] [address] [place] [address] Dr. Rima CharlesRPR QUANTon 57-34-7963Fltqr Plasma Reagin, QuantNon-Reactive NormalNonRea<1:1[facility] on above:Performed By: #### CBC #### [facility] [address] [place] [address] Dr. Rima MirelesBELLA AB IGGon 14-32-5266Cexzurg Antibodies, IgG2.33 index NormalImmune >0.99[facility] on above:Result Comment: Non- immune <0.90 Equivocal 0.90 - 0.99 Immune >0.99Performed By: #### RUBIGG #### [facility] [address] [address] [address] Rima Sierra AUTO DIFFon 68-55-4306VFMK #0.0 103/ulNormal0.0-0.1The [facility] Campusment on above:Performed By: #### CBC #### [facility] [address] [address] [address] Rima CharlesBasophils/100 WBC (Bld)0.4 %Normal0.2-2.0The [facility] Comment on above:Performed By: #### CBC #### [facility] [address] [place] [address] Dr. Rima Fuller #0.0 103/ulNormal0.0-0.7The [facility] HospitalComment on above: Performed By: #### CBC #### [facility] [address] [place] [address] Dr. Rima Leahyosinophils/100 WBC (Bld)0.6 %Critically low0.9-7.0The [facility] HospitalComment on above:Performed By: #### CBC #### [facility] [address] [place] [address] Dr. Rima Leahyrythrocyte distribution width (RBC) [Ratio]12.0 %Pcuosn42.0-15.0 The [facility] HospitalComment on above:Performed By: #### CBC #### [facility] [address] [place] [address] Dr. Rima CharlesHematocrit (Bld) [Volume fraction]37.5 %Fvceir72.0-48.0The [facility] HospitalComment on above:Performed By: #### CBC #### [facility] [address] [place] [address] Dr. Rima CharlesHemoglobin (Bld) [Mass/Vol]13.2 g/uCNmtaws20.0-16.0The [facility] Campusment on above:Performed By: #### CBC #### [facility] [address] [place] [address] Dr. Rima Carreno #0.02 10e3/ulNormal0.00-0.03The [facility] Campusment on above:Performed By: #### CBC #### [facility] [address] [address] [address] Rima Carreno %0.3 %Normal0.0-0.5The [facility] HospitalCommackinac [facility] on above: Performed By: #### CBC #### [facility] [address] [address] [address] Rima Singleton #1.4 103/ulNormal1.2-3.8The [facility]Commackin[facility] on above:Performed By: #### CBC #### [facility] [address] [place] [address] Dr. Rima Jayhocytes/100 WBC (Bld)20.2 %Critically low20.5-60.0The [facility] HospitalCommackinac [facility] on above:Performed By: #### CBC #### [facility] [address] [place] [address] Dr. Rima Lr DIFF REQNONormalThe [facility] HospitalComment on above: Performed By: #### CBC #### [facility] [address] [place] [address] Dr. Rima Nicholas (RBC) [Entitic mass]33.2 iuRghori48.7-34.0The [facility] on above:Performed By: #### CBC #### [facility] [address] [place] [address] Dr. Rima Fall (RBC) [Mass/Vol]35.2 g/rEOszhpe68.9-35.2The [facility] Campusment on above:Performed By: #### CBC #### [facility] [address] [place] [address] Dr. Rima Fall (RBC) [Entitic vol]94.5 jFKmxolc59.0-99.0[facility] on above:Performed By: #### CBC #### [facility] [address] [place] [address] Dr. Rima Grossman #0.4 103/ulNormal0.3-0.8The [facility] HospitalComment on above:Performed By: #### CBC #### [facility] [address] [place] [address] Dr. Rima Wenocytes/100 WBC (Bld)6.1 %Normal1.7-12.0The [facility] Comment on above:Performed By: #### CBC #### [facility] [address] [place] [address] Dr. Rima Huston #5.1 103/ulNormal1.4-6.5The [facility] HospitalComment on above:Performed By: #### CBC #### [facility] [address] [place] [address] Dr. Rima Bobutrophils/100 WBC (Bld)72.4 %Hqrsyn77.0-75.0The [facility] HospitalComment on above:Performed By: #### CBC #### [facility] [address] [place] [address] Dr. Rima Bradfordlet mean volume (Bld) [Entitic vol]11.2 fLNormal9.5-13.5The [facility] HospitalComment on above:Performed By: #### CBC #### [facility] [address] [place] [address] Dr. Rima CharlesPLT221 103/mnMjelkc086-378Rus [facility] HospitalComment on above: Performed By: #### CBC #### [facility] [address] [place] [address] Dr. Rima CharlesRBC3.97 106/ulCritically low4.20-5.40The [facility] HospitalComment on above:Performed By: #### CBC #### [facility] [address] [place] [address] Dr. Rima CharlesWBC7.1 103/ulNormal4.0-11.0The [facility] HospitalComment on above: Performed By: #### CBC #### [facility] [address] [place] [address] Dr. Rima Cardenas URINEon 50-49-9079NEFKIIK URINECulture Observations: No growthNoProvidence HospitalComment on above:Performed By: #### CBC #### [facility] [address] [place] [address] Dr. Rima CharlesGLYCOHEMOGLOBIN A1Con 18-47-9473YKM RECOMMENDATIONADA THERAPEUTIC TARGET 6.0 - 7.0 ACTION SUGGESTED > 7.0NoProvidence HospitalComment on above:Performed By: #### A1C #### [facility] [address] [place] [address] Dr. Rima CharlesGlucose [Mass/Vol]111 mg/dLBucyrus Community HospitalComment on above:Performed By: #### A1C #### [facility] [address] [place] [address] Dr. Rima CharlesHbA1c (Bld) [Mass fraction]5.5 %Normal<=6.0[facility] Comment on above:Performed By: #### A1C #### [facility] [address] [place] [address] Dr. Rima Escalante BOX TEST PT SEND OUTon 09-59-2568KAPO TO REF LAB12/09/20 NormalCleveland Clinic Marymount HospitalCommackinac straits hospital on above:Performed By: #### CBC #### [facility] [address] [place] [address] Dr. Rima BrowerHoagustín 93-14-8107MOV5.651 uIU/mLNormal0.470-4.680The [facility] HospitalCommackinac straits hospital on above:Performed By: #### CBC #### [facility] [address] [place] [address] Dr. Riam Dougherty RANGESEE BELOWBucyrus Community HospitalComment on above: Result Comment: <0.34 UIU/ml HYPERTHYROID 0.34-5.60 UIU/ml EUTHYROID >5.60 UIU/ml HYPOTHYROIDPerformed By: #### CBC #### [facility] [address] [place] [address] Dr. Rima CharlesTYPE AND SCREENon 41-18-7286KBLW AND SCREENNegativeNoProvidence HospitalComment on above:Performed By: #### CBC #### [facility] [address] [address] [address] Rima Butler PREG TVon 15-09-0650UI PREG TVEXAMINATION: US PREG TV HISTORY: Urine [...] Electronically authenticated by: LILIANE POPE Date: 2020-12-02 09:34[facility] Vital Signs Date TimeVital SignValuePerforming QuajcfvccIybbclhg84-33-1727 08:39-0500Body mass index (BMI) [Ratio]26.29 kg/f1Vdycw [employer] DO Work Phone: [phone] [place], [place] [address]Ckfbybzqzz65-22-3398 08:39-0500Body wcjbig58.67 kgCorey Diditz Work Phone: [phone] [place], [place] [address]Cvqohxrwcg25-59-1493 08:39-0500Diastolic blood otqzhwxn31 mm[Hg][employer] Work Phone: [phone] [place], [place] [address]Ocyklgpyya98-64-1366 08:39-0500Systolic blood gabqxifs006 mm[Hg][employer] Work Phone: [phone] [place], [place] [address]Xyuvuetjvt92-08-1472 08:35-0400Body mass index (BMI) [Ratio]26.71 kg/e7Msojw Joanna [employer] Work Phone: [phone] FultonNccvlkbetq37-16-3611 08:35-0400Body ivdcii28.8 kg SantosheSeekers Work Phone: [phone]- FultonLekuaxehbc47-35-1595 08:35-0400Diastolic blood mm[Hg]Santosh Joanna DO Work Phone: [phone])322-[address] [place], [place] [address]Bactydtmci13-00-4106 08:35-0400Systolic blood tzvruugq720 mm[Hg]Santosh Joanna DO Work Phone: [phone])[facility] [place], [place] [address]Ujxkiiymbk83-96-1919 11:20-0400Body mass index (BMI) [Ratio]25.38 kg/b9Kyymu Joanna DO Work Phone: [phone])[facility] [place], [place] [address]Rnlycdnkxx52-76-9968 11:20-0400Body .17 kgCorey Joanna DO Work Phone: [phone])[address] [place] [address]-13-2025 11:20-0400Diastolic blood ehvlpnxt04 mm[Hg]Santosh Joanna DO Work Phone: 1(491)[facility] [place], [place] [address]Rpcpayzqen35-82-9160 11:20-0400Systolic blood zeyzvdjt920 mm[Hg]Santosh Joanna DO Work Phone: [phone])[address] [place], [place] 275[address]609-22-2025 10:23-0400Body mass index (BMI) [Ratio]24.79 kg/m2Amy Brea PA Work Phone: 1(540)[facility] [place], [place] [address]Bdssxnnjnc42-48-9586 10:23-0400Body sirrmm31.59 kgAmy Brea PA Work Phone: 1(393)[facility] [place], [place] [address]Bbbqjevkqo77-40-9951 10:23-0400Diastolic blood wxwbekhg93 mm[Hg]Erum Guidry PA Work Phone: 1(969)[facility] [place], [place] [address]Fomchhssic50-78-8962 10:23-0400Systolic blood pwiukmwu079 mm[Hg]Erum Guidry PA Work Phone: [phone])[facility] [place], [place] [address]Rhetjecjtq72-17-6385 11:45-0400Body mass index (BMI) [Ratio]23.15 kg/h4Ihcet Joanna DO Work Phone: 1(289)[facility] [place], [place] [address]Ymwemcywmx82-06-9975 11:45-0400Body .1 kg Santosh Joanna DO Work Phone: 1(748)[facility] [place], [place] [address]Eexhvnrtgp55-38-1427 11:45-0400Diastolic blood rtwitybk29 mm[Hg]Santosh Joanna DO Work Phone: [facility] FultonZjfrvhvlmy33-37-7777 11:45-0400Systolic blood vozgqbfb861 mm[Hg]Santosh Bhaktao DO Work Phone: [phone])[address]08-18-2025 11:51-0400Body dyxsmq279.1 cmJacklyn Campos MD Work Phone: [phone])[address] [place], [place] 7810408-18-2025 11:51-0400Body mass index (BMI) [Ratio]23.03 kg/b0ZkvpbakhJacklyn Campos MD Work Phone: 1(683)[address] [place], [place] 7810408-18-2025 11:51-0400Body ziqvmk26.78 kgJacklyn Campos MD Work Phone: [phone])[address] [place], [place] 7810408-18-2025 11:51-0400Diastolic blood xnjtygxr26 mm[Hg]Jacklyn Campos MD Work Phone: 1(136)[address] [place], [place] 7810408-18-2025 11:51-0400Heart rate 94 /minJacklyn Campos MD Work Phone: 1(449)[address] [place], [place] 7810408-18-2025 11:51-0400Systolic blood gxuwwieg63 mm[Hg]Jacklyn Campos MD Work Phone: 1(217)[address] [place], [place] 78[address]407-28-2025 10:13-0400Body mass index (BMI) [Ratio]22.38 kg/m2Erum HAYS Work Phone: 1(494)649-[address] [place], [place] [address]Iobmrpkgfc28-48-2471 10:13-0400Body .01 kgErum HAYS Work Phone: 1(101)926-[address] [place], [place] [address]Tobsktadek06-88-8935 10:13-0400Diastolic blood mm[Hg]Erum HAYS Work Phone: 1(913)136-[address] [place], [place] [address]Aaofwqplkt74-01-0438 10:13-0400Systolic blood ffltfgez328 mm[Hg]Erum HAYS Work Phone: [facility] FultonScmfxdbqya11-16-2701 11:10-0400Body mass index (BMI) [Ratio]22.1 kg/z9Lnubl Joanna DO Work Phone: [phone])302-[address] [place], [place] [address]Hsvzhuiyeo15-50-9974 11:10-0400Body .24 kgCorey Joanna DO Work Phone: 1(824)[facility] [place], [place] [address]Junewavazf28-60-5235 11:10-0400Diastolic blood jyaexhbj65 mm[Hg]Santosh Joanna DO Work Phone: 1(628)[facility] [place], [place] [address]Ugszbeneyw63-49-1209 11:10-0400Systolic blood razqwdbv751 mm[Hg]Santosh Joanna DO Work Phone: [phone])[address] [place], [place] 2759605-30-2025 10:00-0400Body mass index (BMI) [Ratio]22.86 kg/m2[facility]05-30-2025 10:00-0400Body .32 kgHarry [facility]. [facility]05-30-2025 10:00-0400Diastolic blood zmphydns56 mm[Hg][facility]05-30-2025 10:00-0400Systolic blood veirybsk664 mm[Hg][facility]09-23-2024 14:19-0400Body mass index (BMI) [Ratio]21.15 kg/m4Bseaw Joanna DO Work Phone: 1(837)[facility] [place], [place] [address]Jgflrsmvwe52-51-6256 14:19-0400Body ewswga47.66 kgCorey Joanna DO Work Phone: 1(002)717-[facility]- FultonLvmlppddjy43-00-4771 14:19-0400Diastolic blood tyhldjly85 mm[Hg]Santosh Joanna DO Work Phone: [facility] FultonFqzbnlovzv75-84-6153 14:19-0400Systolic blood icxazpap266 mm[Hg]Santosh Joanna DO Work Phone: 1(331)660-[address] [place], [place] [address]Qfzemccxez71-90-4799 15:43-0400Blood Pressure Eladia Thornton 921-0658Jvehdb-SwunkTrinity Health System Dpug67-80-4040 15:43-0400Diastolic blood cjmemarh78 mm[Hg]Ya Thornton 782-8075Geceem-Rkzsm[address] [place], [place] 2482605-20-2024 15:43-0400Heart sbqz940 /Waqar Thornton 847-7975Lpntff-Srsoy[address] [place], [place] 2482605-20-2024 15:43-0400Respiratory rate18 /Waqar Thornton 392-9252Cmvzqu-Wvksz[address] [place], [place] 2482605-20-2024 15:43-4862WtR9% (BldA) [Mass fraction]100 %Ya Thornton [address] [place], [place] 6554805-20-2024 15:43-0400Systolic blood hctdmryn435 mm[Hg]Ya Thornton [address] [place], [place] 6554812-20-2023 07:21-0500Blood Pressure LocationYa Thornton [address] [place], [place] 6554812-20-2023 07:21-0500Body rxuedhjduxl14.52 [degF]Ya Thornton [address] [place], [place] 6554812-20-2023 07:21-0500Diastolic blood cjqsbwuu37 mm[Hg]Ya Thornton [address] [place], [place] 6554812-20-2023 07:21-0500Heart rate91 /Waqar Thornton [address] [place], [place] 6554812-20-2023 07:21-0500Respiratory rate18 /Waqar Thornton [address] [place], [place] 6554812-20-2023 07:21-6350VpO3% (BldA) [Mass fraction]100 %Ya Thornton [address] [place], [place] 6554812-20-2023 07:21-0500Systolic blood hnaozrgs743 mm[Hg]Ya Thornton 585-6935Dddcjd-VixedLutheran Hospital12-04-2023 12:53-0500Blood Pressure LocationYa Thornton [phone]-Ctlfj[address] [place], [place] 2482612-04-2023 12:53-0500Diastolic blood mkvhdilg14 mm[Hg]Ya Thornton 157-2093Kqrjgv-Verqf[address] [place], [place] 2482612-04-2023 12:53-0500Heart ozdf836 /Waqar Thornton 105-7536Trinoy-Aoutt[address] [place], [place] 2482612-04-2023 12:53-0500Respiratory rate18 /Waqar Thornton [phone]-Mmzpw[address] [place], [place] 2482612-04-2023 12:53-2239EbS5% (BldA) [Mass fraction]99 %Ya Thornton [phone]-Rsova[address] [place], [place] 2482612-04-2023 12:53-0500Systolic blood pxcklepv888 mm[Hg]Ya Thornton [phone]-Kzwoq[address] [place], [place] 2482609-12-2023 12:10-0400Blood Pressure LocationDaniel Gray [phone]-AdtjeCincinnati [facility]09-12-2023 12:10-0400Body xnowaugaxax24.52 [degF]Daniel Gray 217-0738Zmtsev-NveccCincinnati Children'S Hospital [facility] Center09-12-2023 12:10-0400Diastolic blood mm[Hg]Daniel Gray 101-8773Zzypkc-GdxudCincinnati Children'S Hospital [facility] Center09-12-2023 12:10-0400Heart rate97 /Hans Gray [phone]-GszyfCincinnati Children'S Hospital [facility] Center09-12-2023 12:10-0400Systolic blood adjjxpzs261 mm[Hg]Daniel Gray 675-8184Voqztj-CrgmeCincinnati Children'S Hospital [facility] Center08-24-2023 09:20-0400Blood Pressure LocationYa Thornton [phone]-Mkgrq[address] [place], [place] 2482608-24-2023 09:20-0400Body gqancdsknzn63.06 [degF]Yasampson Thornton 500-0782Lnfjay-Eixqf[address] [place], [place] 2482608-24-2023 09:20-0400Diastolic blood etgsdzlg22 mm[Hg]aY Thornton 924-6508Nhfhog-Piplg[address] [place], [place] 2482608-24-2023 09:20-0400Heart rate76 /minEgerald Thornton [phone]-Jhitk91 [address] [place], [place] 2482608-24-2023 09:20-7821VaF7% (BldA) [Mass fraction]98 %Yasampson Thornton [phone]-Istpc[address] [place], [place] 2482608-24-2023 09:20-0400Systolic blood fragcami389 mm[Hg]Ya Thornton [phone]-Rrghd[address] [place], [place] 2482602-13-2023 14:14-0500Blood Pressure LocationRitu Desai [phone]-Jldha[address] [place], [place] 2482602-13-2023 14:14-0500Body ddzzymoqcla07.7 [degF]Ritu Desai 344-6672Jyrtjd-Jewet[address] [place], [place] 2482602-13-2023 14:14-0500Diastolic blood mm[Hg]Ritu Desai 188-9270Zhwawd-Rviiw[address] [place], [place] 2482602-13-2023 14:14-0500Heart rate71 /minRitu Desai 116-1160Gtbzuv-Wawkj[address] [place], [place] 2482602-13-2023 14:14-4745ZgY9% (BldA) [Mass fraction]98 %Ritu Desai 136-2099Jltghx-ByhcsMercy Health [facility] Hsjs08-24-7086 14:14-0500Systolic blood crdhrrne793 mm[Hg]Ritu Moralesell 150-4471Swofnl-FkledMercy Health St[facility] Abbi08-49-0418 02:06-0400Body .968 kgDR [facility] - CincinnatiComment on above:Performed By: #### AFPMAT #### [facility] [address] [address] [address] Rima Charles Encounters Encounter DateEncounter TypeCare ProviderFacilityStart: 01-28-2025 End: 87-17-2246Zfzkjl flowsheetCorey Joanna DO Work Phone: [facility] [place] [facility]BGYNStart: 01-28-2025 End: 66-63-7481Xvvrqj flowsheetCorey Joanna DO Work Phone: [facility] [place] [facility]BGYNStart: 01-28-2025 End: 53-57-0872Izjtggoe flow sheetCorey Joanna DO Work Phone: [facility] [place] OBGYNComment on above:Third trimester ([facility]); 32 weeks gestation of ([facility]); Thyroid disease; History of prior with IUGR ; Hypothyroidism, unspecified typeStart: 01-28-2025 End: 03-28-5100apekobdpuwQDIKO FAZIONot AvailableStart: 01-14-2025 End: 40-79-1806Fdjpsp flowsheetCorey Joanna DO Work Phone: [facility] [place] [facility]BGYNStart: 01-14-2025 End: 79-55-3683Iqssko flowsheetCorey Joanna DO Work Phone: [facility] [place] [facility]BGYNStart: 01-14-2025 End: 24-58-2602Shkrsrha flow sheetCorey Joanna DO Work Phone: [facility] [place] OBGYNComment on above:Third trimester ([facility]); 30 weeks gestation of ([facility])Start: 01-14-2025 End: 91-16-7372ymlyxcpkxoTRAEZ FAZIONot AvailableStart: 00-80-4578zntqkmnnuc Martaishmael RickettsmarcusFacility:[facility] PCStart: 12-31-2024 End: 94-41-7253Wnrireic flow sheetCorey Joanna DO Work Phone: NOVD [facility] OBGYNComment on above:Third trimester ([facility]); 28 weeks gestation of ([facility])Start: 12-31-2024 End: 35-25-3562izurwsqajxXLVYY FAZIONot AvailableStart: 12-12-2024 End: 74-01-0170Zqrvtsero Result EncounterErum HAYS Work Phone: NOKY External Department UnsolicitedStart: 12-12-2024 End: 97-42-0862Lxaordzln Result EncounterErum HAYS Work Phone: NORV External Department UnsolicitedStart: 12-11-2024 End: 96-87-3104swmnkwpzhbCFXOQ R [facility]OSPITALTaurusMedisunny [facility]edar [facility] HospitalStart: 12-11-2024 End: 29-17-4588Jyishcirr Result EncounterErum HAYS Work Phone: NOUL External Department UnsolicitedStart: 12-11-2024 End: 41-96-7553Hbxczoocz Result EncounterErum HAYS Work Phone: NOEO External Department UnsolicitedStart: 12-10-2024 End: 49-01-4743Rbudzj flowsheetErum HAYS Work Phone: [facility] [place] [facility]BGYNStart: 12-10-2024 End: 51-27-9126Qbyrpt oliviaheetErum HAYS Work Phone: [facility] [place] [facility]BGYNStart: 12-10-2024 End: 80-48-6290Fdrdgtqi flow sheetErum HAYS Work Phone: NOGL [place] OBGYNComment on above:Size of fetus inconsistent with dates in second trimester ([facility]) (Primary Dx); Second trimester ([facility]); 25 weeks gestation of ([facility]); Diabetes mellitus screeningStart: 12-10-2024 End: 03-17-9370twwatyukbvEYR RAMFORTINONot AvailableStart: 11-27-2024 End: 55-46-8227fychmdgkpfCUULS R [facility] HospitalStart: 11-20-2024 End: 89-26-8706gtfyuxxfllFXQHP R [facility] HospitalStart: 11-12-2024 End: 89-39-6412Zjvmgh flowsheetCorey Joanna DO Work Phone: noms [place] [facility]BGYNStart: 11-12-2024 End: 28-73-5484Zmmuag flowsheetCorey Joanna DO Work Phone: [facility] [place] [facility]BGYNStart: 11-12-2024 End: 04-01-5721Qloylfho flow sheetCorey Joanna DO Work Phone: noms [place] OBGYNComment on above:Hypothyroidism, unspecified type (Primary Dx); Second trimester ([facility]); 21 weeks gestation of ([facility]); Vaginal discharge; STD exposureStart: 11-12-2024 End: 70-55-1555nyqvouiyjmBQNJP FAZIONot AvailableStart: 11-07-2024 End: 13-32-3366Icfpyxmxz Result EncounterCorey Joanna DO Work Phone: noms External Department UnsolicitedStart: 11-07-2024 End: 28-55-6830Mcbuldcwt Result EncounterCorey Joanna DO Work Phone: noms External Department UnsolicitedStart: 11-06-2024 End: 16-22-0232Xihfyn Sesar Smith RNMaternal- Medicine at [facility] HospitalComment on above: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 trimester (Primary Dx); History of prior with IUGR ; History of premature rupture of membranesStart: 11-05-2024 End: 01-42-7961Mpnagq consultation new/estab patient 60 Jesus Campos MD Work Phone: [phone]-Elxdp [facility] Comment on above:20 weeks gestation of (Primary Dx); Low-lying placenta; 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 trimester; History of prior with IUGR ; Family history of autism; History of gestational diabetes in prior , currently ; History of prior with short cervix, currently ; History of premature rupture of membranesStart: 11-05-2024 End: 48-57-3554rmixvhnkukPAVTL [facility] HospitalStart: 10-15-2024 End: 98-75-0606Bwlcwp flowsLizzie HAYS Work Phone: [facility]oms [facility] [facility]BGYNStart: 10-15-2024 End: 35-25-3807Nyumvt David HAYS Work Phone: NOQO [place] [facility]BGYNStart: 10-15-2024 End: 92-09-1832Bgefsivho Result EncounterErum HAYS Work Phone: noms External Department UnsolicitedStart: 10-15-2024 End: 13-04-8187Nsqmvixe flow Mahamed HAYS Work Phone: NOIZ [place] OBGYNComment on above:Second trimester ([facility]); 17 weeks gestation of ([facility])Start: 10-15-2024 End: 54-46-7267kxndodheiiLIJ RAMEYNot AvailableStart: 10-02-2024 End: 01-77-5419Oxdttzikp Result EncounterCorey Joanna DO Work Phone: noms External Department UnsolicitedStart: 10-02-2024 End: 62-30-7089Fjfliivne Result EncounterCorey Joanna DO Work Phone: noms External Department UnsolicitedStart: 09-24-2024 End: 98-69-9886Rrklp Rob Campos MD Work Phone: [phone]-Fbnrp [facility] Start: 09-24-2024 End: 36-27-6693Bfxysooph Result EncounterCorey Joanna DO Work Phone: noms External Department UnsolicitedStart: 09-24-2024 End: 13-47-6611Mpdsgeegr Result EncounterCorey Joanna DO Work Phone: noms External Department UnsolicitedStart: 09-20-2024 End: 44-89-2871Gxhpxx Kashif Gutierrez RNMaternal- Medicine at [facility] HospitalComment on above:Thyroid disease affecting (Primary Dx); History of prior with IUGR newbornStart: 09-17-2024 End: 45-60-1673Zawlgk flowsheetCorey Joanna DO Work Phone: noms BCP OBStart: 09-17-2024 End: 77-84-9497Ztcnps flowsheetCorey Joanna DO Work Phone: noms BCP OBStart: 09-17-2024 End: 75-69-8094mlwvmkjhvfWDRXO FAZIONot AvailableStart: 09-17-2024 End: 25-75-4321Curktrzd flow sheetCorey Joanna DO Work Phone: noms BCP OBComment on above:13 weeks gestation of ([facility]); Second trimester ([facility]); Thyroid disease ; History of prior with IUGR ; Diabetes mellitus screeningStart: 09-12-2024 End: 19-13-7616Flqlfrrdg Result EncounterCorey Joanna DO Work Phone: noms External Department UnsolicitedStart: 09-12-2024 End: 61-83-5071Skdvhblrs Result EncounterCorey Joanna DO Work Phone: noms External Department UnsolicitedStart: 08-21-2024 End: 09-41-4351Jfqhstazi Result EncounterCorey Joanna DO Work Phone: NOMS External Department UnsolicitedStart: 08-21-2024 End: 26-97-1711Behficxds Result EncounterCorey Joanna DO Work Phone: NOMS External Department UnsolicitedStart: 08-17-2024 End: 49-53-9211Ukgmco outpatient visit 5 minutesNoms Bcp Ob Joanna NurseNOMS BCP OBComment on above:GA: 0x6pEwvxe: 08-17-2024 End: 67-37-6328gyuolublerHEZQC FAZIONot AvailableStart: 07-09-2024 End: 76-29-9876ojbrxsltjeKmdupyEric AlmanzarFacility:[facility] PCStart: 07-05-2024 End: 15-67-4356xwwkwwaoehReuob J SosinskiFacility:[facility] PCStart: 07-04-2024 End: 35-84-7075dwfjvnqgiyEqrfwcEric AlmanzarFacility:FTMCStart: 07-04-2024 End: 10-92-7665Gvwhcux encounter Patsy Almanzar [facility] Start: 05-14-2024 End: 59-85-1224dmhcogtilaJGAWRS E COSTINAkron [facility] Centertart: 05-14-2024 End: 90-86-1732Xjnujhffqm hospital visit by Krys Jurado MD Work Phone: [facility] LabComment on above:Family history of autismStart: 12-12-2023 End: 47-73-5476Djyuzq flowsheetCorey Joanna DO Work Phone: [facility] BCP OBStart: 12-12-2023 End: 75-15-6357Bhszcy flowsheetCorey Joanna DO Work Phone: [facility] BCP OBStart: 12-12-2023 End: 74-46-8726Ezvcrwbof Result EncounterCorey Joanna DO Work Phone: noMS External Department UnsolicitedStart: 12-12-2023 End: 81-28-9418Ohqahrj encounter procedureCorey Joanna DO Work Phone: [facility] Work Phone: Start: 12-12-2023 End: 74-15-3855Gfccekwq preventive med est patient 18-39 yrsCorey Joanna DO Work Phone: NODA BCP OBComment on above:Well woman exam with routine gynecological examStart: 09-07-2023 End: 83-71-5283acbgvibbsxFthgaatev L ClarkFacility:FTMCStart: 09-07-2023 End: 34-82-3055Onbjdvw encounter procedureYa Thornton [facility] Start: 08-08-2023 End: 74-12-8539fpvbkwtidwIcnylktno L ClarkFacility:[facility] PCStart: 08-08-2023 End: 11-26-9917Repzbnd encounter Rosina Thornton [phone]-FzpbhMercy Health St[facility] Start: 07-12-2023 End: 71-97-0131vvepuawihyPHNNUVOY E PERRYFacility:EU ueStart: 07-12-2023 End: 27-52-7764Powyclq encounter procedureJENNIFER E SUKH [facility]ue start: 05-16-2023 End: 87-61-1747riyqxysfceRhprrvuit L ClarkFacility:FTMCStart: 05-16-2023 End: 18-52-0769xvkywavdfvHgupcxnvt L ClarkFacility:[facility] PCStart: 04-01-2023 ambulatoryYa ThorntonFacility:EU BellevueStart: 03-24-2023 End: 90-61-1725vjgqohdnmlXoynizogo L ClarkFacility:FTMCStart: 03-24-2023 End: 90-10-4502Xcovinu encounter procedureYa Thornton [facility] Start: 03-22-2023 End: 55-56-9270uuffgmaanvBsqxalprk L ClarkFacility:FTMCStart: 03-22-2023 End: 13-10-6372Dhzqnoj encounter procedureYa Thornton [facility] Start: 03-09-2023 End: 28-14-8673Uzi Drop offYa Thornton [facility] start: 03-09-2023 End: 38-74-3202wprnaesvkdGohpeklaf L ClarkFacility:FTMCStart: 03-09-2023 End: 88-18-5069Wiazllc encounter procedureYa Thornton [phone]-QupsqMercy Health St[facility] Start: 02-21-2023 End: 59-28-5226Vlx Drop offYa Thornton [facility] Start: 02-21-2023 End: 10-34-9627dlqpjaewoxXyywjscsr L ClarkFacility:FTMCStart: 02-21-2023 End: 44-55-3982Mpsxoiq encounter procedureYa Thornton [phone]-UntrgMercy Health St. [facility] Start: 11-30-2022 End: 45-17-3361ntqnyuykpfJhpa A SteinmetzFacility:[facility] DHStart: 11-30-2022 End: 16-10-3740Dirjjfe encounter procedureDaniel Gray [phone]-DzoewMercy Health St. [facility] Start: 24-72-6566wguqdhxfpyCbhuuedcp Clark Facility:[facility] DHStart: 11-11-2022 End: 93-40-7656ckalzfvxisUilwmkydm L ClarkFacility:[facility] PCStart: 11-11-2022 End: 51-55-5854Ruchqgx encounter procedureYa Thornton [phone]-SbzqxMercy Health St[facility] Start: 10-08-2022 End: 34-50-2922pdfsnrjiovAxkdttbdz L ClarkFacility:MCStart: 10-08-2022 End: 24-31-5579uzlzvfnpgjExztebmah L ClarkFacility:[facility] PCStart: 05-03-2022 End: 46-18-5468Xecfvbz encounter procedureRitu Desai [phone]-PyzbaMercy Health St. [facility] Start: 10-19-2021 End: 43-70-3178qpemtqdcqbFC SANTOSH FAZIOFacility:H4Vzkaf: 10-17-2021 End: 15-73-1291wsefgvrjsjSG SANTOSH FAZIOFacility:M9Zeemi: 27-95-7821pcbveiqndwGL SANTOSH FAZIOFacility:F8Nliec: 07-13-2021 End: 48-08-4997amtyqojvbeYG DOCTOR MISCFacility:F6Hcufp: 05-06-2021 End: 48-40-7560xvxhdvbgdqDM ERASMO KARASIKFacility:S7Fyjhr: 02-24-2021 End: 43-63-7874jvdipexvuzEE SANTOSH FAZIOFacility:Y6Zccwl: 01-13-2021 End: 06-34-6612hnhpvdzgdaDM SANTOSH FAZIOFacility:D0Vwosv: 12-09-2020 End: 94-43-3153cucvwuohtdAD SANTOSH FAZIOFacility:K7Zaomz: 12-02-2020 End: 08-71-8531ueuahcobliYC SANTOSH FAZIOFacility:H1 Procedures DateProcedureProcedure DetailPerforming ClinicianStart: 86-93-0602Pabay dip stick/tablet rgnt non-auto w/o micrscpCorey Joanna DO Work Phone: Start: 95-49-4135Knkbg dip stick/tablet rgnt non-auto w/o micrscpAmy Brea HAYS Work Phone: Start: 17-72-5614Mnlko dip stick/tablet rgnt non-auto w/o micrscpCorey Joanna DO Work Phone: Start: 98-98-1554GTXGEAC TOLERANCE 3 HOURAmy Brea HAYS Work Phone: Start: 88-27-5403DPZ CBC WITH AUTO DIFFAmy Brea HAYS Work Phone: Start: 38-77-4695Eroca dip stick/tablet rgnt non-auto w/o micrscpAmy Brea HAYS Work Phone: Start: 20-92-2965Xtgsh dip stick/tablet rgnt non-auto w/o micrscpCorey Joanna DO Work Phone: Start: 11-84-7146VLZ THYROID STIM HORMONECorey Joanna DO Work Phone: Start: 03-28-9338NYA, SERUM, OPEN SPINA BIFIDAAsusanne HAYS Work Phone: Start: 39-55-9082Gufhv dip stick/tablet rgnt non-auto w/o micrscpCorey Joanna DO Work Phone: Start: 92-89-8224BQGUULQ 1 HOURCorey Joanna DO Work Phone: Start: 11-13-9573GYA MISCELLANEOUS TESTCorey Joanna DO Work Phone: Start: 83-70-3209XHQ MISCELLANEOUS TESTCorey Joanna DO Work Phone: Start: 80-85-9982Sxxemlqhbarry Campos MD Work Phone: Start: 41-70-1610LKW W Auto Differential panel - Blood Santosh R Joanna DO Work Phone: Start: 56-64-0827Mvrn scrn 1+ class nonchromoNot In System Ref ProvStart: 93-40-6417Fqbnigalda glycosylated l8vMbikc R Joanna DO Work Phone: Start: 80-51-6952Kydhlbhdn c antibodyNot In System Ref ProvStart: 98-35-4622ZJA 1&2 AB/AG SCREEN (P24 AG)Not In System Ref ProvStart: 24-98-4209Axrd ia hepatitis b surface antigenNot In System Ref ProvStart: 39-70-4442WPIJPAQJ TOTAL(UNKNOWN SYPHILIS STATUS)Not In System Ref ProvStart: 44-33-6010FWZR AND SCREENNot In System Ref ProvStart: 76-08-9579NAF CBC WITH AUTO DIFFCorey JoannaParantez Work Phone: Start: 08-17-2024 End: 44-44-4825Vkues dip stick/tablet rgnt non-auto w/o micrscpCorey JoannaParantez Work Phone: Start: 95-76-8979FCW,APTIMA HPV,AGE GDLNCorey JoannaParantez Work Phone: Start: 97-10-5120Palyk depression screening assessment Jacklyn Campos MD Work Phone: None (qualifier value)Ritu Desai Plan of Treatment DateCare ActivityDetailAuthorStart: 14-98-4526NBtH,Tdap and Td Vaccines (8 - Td or Tdap)DTaP,Tdap and Td Vaccines (8 - Td or Tdap)[facility] HospitalBetter Walk SystemStart: 11-06-2025 End: 60-09-8229UZ MFM with or without consultUS MFM with or without consult Imaging Routine 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 trimester History of prior with IUGR History of premature rupture of membranes Expected: 11/06/2025 (Approximate), Expires: 11/06/2025[facility] Work Phone: comment on above:Expected: 11/06/2025 (Approximate), Expires: 11/06/2025Start: 28-72-6680Kqymq BMI ScreeningAdult BMI Screening [facility] SystemStart: 21-72-9903Cehsnev ScreeningTobacco Screening [facility] SystemStart: 02-13-2025 End: 39-72-0983Onvaxst encounter tsauiuebw36/26/2025 10:50 AM EST Routine [facility] [address] [id number] Santosh Marshall DO [address] [place] [address] [facility] [place] [facility]BGYNStart: 02-04-2025 End: 81-72-6981Pznagzeliyqp / ancillary services ajkzqdhybs06/17/2025 8:00 AM EST Ancillary Procedure [facility] [address] [place] [address] [facility] [place] [facility]BGYNStart: 01-28-2025 End: 81-15-8753MD biophysical profile w non stress testUS biophysical profile w non stress test Imaging Routine Thyroid disease History of prior with IUGR Hypothyroidism, unspecified type Expected: 01/28/2025 (Approximate), Expires: 07/28/2025[facility] Work Phone: comment on above:Expected: 01/28/2025 (Approximate), Expires: 07/28/2025Start: 01-28-2025 End: 86-78-5918YX for pregnancyUS OB follow up transabdominal approach Imaging Routine Thyroid disease History of prior with IUGR Hypothyroidism, unspecified type Expected: 01/28/2025, Expires: 05/28/2025NOMS HealthcareComment on above:Expected: 01/28/2025, Expires: 05/28/2025Start: 01-28-2025 End: 23-93-0415Tblgtcq encounter uikwbewll55/10/2025 8:30 AM EST Routine [facility] [address] [place], [id number] Santosh Marshall, DO [address] [place] [address] ArrivedNOMS [place] OBGYNComment on above:ArrivedStart: 01-14-2025 End: 94-06-7244Dhwaqwt encounter procedureNOMS [place] OBGYNComment on above: ArrivedStart: 01-01-2025 End: 53-47-3179Bfmuquo encounter procedureNOMS BCP OBStart: 12-31-2024 End: 16-44-1726Vjrguqj encounter lassiuueu19/13/2025 11:00 AM EDT Routine [facility] [address] [place] [address] Santosh Marshall, DO [address] [place] [address] [facility] [place] [facility]BGYNStart: 12-31-2024 End: 28-49-4884Hewigrsetcpk / ancillary services ffoxliolpr80/13/2025 10:30 AM EDT Ancillary Procedure [facility] [address] [place] [address] [phone] [place] [facility]BGYNStart: 12-17-2024 End: 94-45-6880Ephyayy encounter yprdebmcn74/29/2025 3:00 PM EDT Office Visit [facility] [address] [place] [address] Santosh Marshall, [address] [place] [address] NOMS BCP OBStart: 12-11-2024 End: 63-54-2154Bmteynf encounter rjsfrkure49/23/2025 2:15 PM EDT Appointment [facility] [address] [place] [address] [phone] Healthcare - UltrasoundStart: 12-10-2024 End: 78-35-5558IUT panel - Blood by Automated countCBC Lab Routine Diabetes mellitus screening Expected: 12/10/2024 (Approximate), Expires: 12/10/2025[facility] Work Phone: comment on above:Expected: 12/10/2024 (Approximate), Expires: 12/10/2025Start: 12-10-2024 End: 03-38-4928Fazljqvhuac of glucose 1 hour after glucose challenge for glucose tolerance testGlucose tolerance, 1 hour Lab Routine Diabetes mellitus screening Expected: 12/10/2024 (Approximate), Expires: 12/10/2025[facility] HealthcareComment on above:Expected: 12/10/2024 (Approximate), Expires: 12/10/2025Start: 12-10-2024 End: 54-30-3020HS for pregnancyUS OB follow up transabdominal approach Imaging Routine Size of fetus inconsistent with dates in second trimester ([facility]) Expected: 12/10/2024, Expires: 04/11/2025[facility] HealthcareComment on above: Expected: 12/10/2024, Expires: 04/11/2025Start: 12-10-2024 End: 59-20-9606Ajenmgl encounter procedureNOMS [place] OBGYNComment on above: ArrivedStart: 11-27-2024 End: 84-71-9929Oqdmcvd encounter nhkoqxhmt06/09/2025 3:15 PM EDT Appointment [facility] [address] [place] [address] [phone] Health - UltrasoundStart: 11-20-2024 End: 04-36-2743Ttsjmov encounter qrdewttru47/02/2025 3:45 PM EDT Appointment [facility] [address] [place] [address] [phone] Health [facility] US ImagingStart: 11-19-2024 Influenza vaccinationInfluenza VaccineCritical access hospitaltart: 11-12-2024 End: 35-06-9446Zkzoivl encounter procedureUMESH [place] OBGYNComment on above: ArrivedStart: 11-05-2024 End: 06-31-3571Qtmtthr encounter procedureMount Carmel Health System US ImagingStart: 10-21-2024 End: 20-71-8254RY MFM with or without consultUS [facility] with or without consult Imaging Routine Thyroid disease affecting History of priorpregnancy with IUGR Expected: 10/21/2024 (Approximate), Expires: 09/20/2025 [facility] Work Phone: comment on above:Expected: 10/21/2024 (Approximate), Expires: 09/20/2025Start: 10-15-2024 End: 84-85-5794Fumna fetoprotein, maternalAlpha fetoprotein, maternal Lab Routine 17 weeks gestation of ([facility]) Expected: 10/15/2024 (Approximate), Expires: 12/16/2024[facility] Work Phone: comment on above:Expected: 10/15/2024 (Approximate), Expires: 12/16/2024Start: 10-15-2024 End: 81-98-2323Sbownkv encounter procedureNOMS CASSANDRA OBComment on above:Arrived Start: 09-17-2024 End: 29-69-4419Gznperlghyu of glucose 1 hour after glucose challenge for glucose tolerance testGlucose tolerance, 1 hour Lab Routine Diabetes mellitus screening Expected: 09/17/2024 (Approximate), Expires: 09/17/2025[facility] Work Phone: comment on above:Expected: 09/17/2024 (Approximate), Expires: 09/17/2025Start: 09-17-2024 End: 72-96-4879Bngucnk encounter gwnccatty51/30/2025 10:50 AM EDT Routine [facility] [address] [place] [address] Santosh Marshall, DO [address] [place] [address] NOMS BCP OBStart: 08-17-2024 End: 47-98-3199OSU/RhABO/Rh Lab Routine Missed menses , unspecified gestational age Expected: 08/17/2024 (Approximate), Expires: 08/17/2025N[facility] HealthcareComment on above:Expected: 08/17/2024 (Approximate), Expires: 08/17/2025Start: 08-17-2024 End: 16-32-8795Ohuwt type and Indirect antibody screen panel - BloodType and screen Lab Routine Missed menses , unspecified gestational age Expected: 08/17/2024 (Approximate), Expires: 08/17/2025N[facility]S HealthcareComment on above:Expected: 08/17/2024 (Approximate), Expires: 08/17/2025Start: 08-17-2024 End: 81-86-7920Wkmza of abuse panel - Urine by Screen methodRapid drug screen, urine Lab Routine , unspecified gestational age Encounter for supervision of normal first in first trimester Expected: 08/17/2024 (Approximate), Expires: 08/17/2025[facility] HealthcareComment on above:Expected: 08/17/2024 (Approximate), Expires: 08/17/2025Start: 08-09-2024 End: 21-49-9883WM Pelvis transvaginalUS OB transvaginal Imaging Routine Missed menses Expected: 08/09/2024, Expires: 11/09/2024[facility] Work Phone: comment on above:Expected: 08/09/2024, Expires: 11/09/2024Start: 26-01-8529VLFSN-19 ( season)COVID-19 ( season)[facility]: 92-29-9912PUS (#1)FLU (#1)[facility]: 04-80-4276Jvhshbbddp ScreeningDepression Screening [facility] SystemStart: 51-61-9524wgqqwwuuyvGszdgosrrzYeyscprq:P7Fgfdv: 20-50-6743Vjlgecfijmo observation [Identifier] in Cervix by Cyto stainPap Smear [facility]: 09-30-7966Edvciwfhg for malignant neoplasm of cervixPap SmearCritical access hospitaltart: 71-26-4950Iafnoqdgd B (1 of 3 - 19+ 3-dose series)Hepatitis B (1 of 3 - 19+ 3-dose series)[facility] Start: 77-96-3869Zwted BMI ScreeningAdult [facility] ScreeningPro[facility] Start: 48-46-9063GrjY (1 of 2 - MenB 2-Dose Series Bexsero)MenB (1 of 2 - MenB 2-Dose Series Bexsero)[facility]: 19-03-6843RGS (1 - 3-dose series)HPV (1 - 3-dose series)[facility]: 2011 Varicella (1 of 2 - 13+ 2-dose series)Varicella (1 of 2 - 13+ 2-dose series) [facility]: 48-28-1227Fapdurp ScreeningTobacco Screening [facility] hospital[facility]: 91-68-8912Hrevojl Diphtheria and Pertussis Vaccines (1 - Tdap)Tetanus Diphtheria and Pertussis Vaccines (1 - Tdap)[facility]: 16-31-7657PVS (1 of 1 - Standard series)MMR (1 of 1 - Standard series)[facility] Hospital[facility] identified in Urine by Culture Urine culture Microbiology Routine Missed menses Ordered: 08/17/2024[facility] HealthcareComment on above:Ordered: 08/17/2024BC W Auto Differential panel - BloodCBC and differential Lab Routine Missed menses , unspecified gestational age Ordered: 08/17/2024[facility] HealthcareComment on above:Ordered: 08/17/2024HLAMYDIA TRACHOMATIS (GENITO/STI)CHLAMYDIA TRACHOMATIS (GENITO/STI) Lab Routine STD exposure Ordered: 11/12/2024[facility] HealthcareComment on above: Ordered: 11/12/2024ytology Cervical or vaginal smear or scraping studyPap Smear Pathology and Cytology Routine Well woman exam with routine gynecological exam Ordered: 12/12/2023[facility] Healthcare Work Phone: comment on above:Ordered: 12/12/2023 End: 63-00-9260[facility] and [facility] Work Phone: Comment on above:1 Occurrences starting 05/14/2024 until 05/14/2024, 1 completedHemoglobin A1c/Hemoglobin.total in BloodHemoglobin A1c Lab Routine Missed menses , unspecified gestational age Ordered: 08/17/2024[facility] HealthcareComment on above:Ordered: 08/17/2024Hepatitis B virus surface Ag [Presence] in Serum or Plasma by ImmunoassayHepatitis B surface antigen Lab Routine Missed menses , unspecified gestational age Ordered : 08/17/2024[facility] HealthcareComment on above:Ordered: 08/17/2024Hepatitis C virus Ab [Presence] in Serum or Plasma by ImmunoassayHepatitis C antibody Lab Routine Missed menses , unspecified gestational age Ordered: 08/17/2024[facility] HealthcareComment on above:Ordered: 08/17/2024HIV-1/HIV-2 antigen/antibody combination immunoassayHIV-1 and HIV-2 antibodies Lab Routine Missed menses , unspecified gestational age Ordered: 08/17/2024[facility] HealthcareComment on above:Ordered: 08/17/2024Neisseria gonorrhoeae DNA [Presence] in Unspecified specimen by FRANSISCO with probe detectionNeisseria gonorrhea DNA probe, direct Lab Routine STD exposure Ordered: 11/12/2024[facility] HealthcareComment on above:Ordered: 11/12/2024Reagin Ab [Presence] in Serum by RPRRPR Lab Routine Missed menses , unspecified gestational age Ordered: 08/17/2024[facility] HealthcareComment on above:Ordered: 08/17/2024Rubella antibody, IgGRubella antibody, IgG Lab Routine Missed menses , unspecified gestational age Ordered: 08/17/2024 [facility] HealthcareComment on above:Ordered: 08/17/2024SURESWAB(R) ADVANCED VAGINITIS PLUS, TMASURESWAB(R) ADVANCED VAGINITIS PLUS, TMA Pathology and Cytology Routine Vaginal discharge Ordered: 11/12/2024[facility] Healthcare Work Phone: comment on above:Ordered: 11/12/2024Thyrotropin [Units/volume] in Serum or PlasmaTSH Lab Routine Missed menses , unspecified gestational age Encounter for supervision of normal first in first trimester Ordered: 08/17/2024[facility] HealthcareComment on above:Ordered: 08/17/2024 End: 61-40-9935Sawxwznmilg [Units/volume] in Serum or PlasmaTSH Lab Routine Hypothyroidism, unspecified type 9 Occurrences starting 11/12/2024 until 11/12/2025[facility] Work Phone: comment on above:9 Occurrences starting 11/12/2024 until 11/12/2025US Pelvis transvaginalUS OB transvaginal Imaging Routine Missed menses 08/17/2024 9:27 AM [facility] Immunizations Immunization DateImmunizationNotesCare HnsdxcuoQkewtwsm85-99-7489sclyyzk toxoid, reduced diphtheria toxoid, and acellular pertussis vaccine, adsorbedNancyzabemonty Thornton [phone]-NickhLutheran Hospital08-02-2016 meningococcal B vaccine, fully recombinantNancyzabeth Norberto [phone]-AgtvoLutheran Hospital06-27-2016 meningococcal ACWY vaccine, unspecified formulationNancyzabemonty Thornton [phone]-RrpfeLutheran Hospital06-27-2016 meningococcal B vaccine, fully recombinantNancyzabeth Norberto [phone]-IrlwcLutheran Hospital04-04-2011 meningococcal ACWY vaccine, unspecified formulationNancyzabeth Norberto [phone]-GkgyoLutheran Hospital04-04-2011 tetanus toxoid, reduced diphtheria toxoid, and acellular pertussis vaccine, adsorbedElizabeth Norberto [phone]-DslueLutheran Hospital11-12-2009 influenza virus vaccine, unspecified formulationJacklyn Campos MD Work Phone: [phone] [place], [place] 6060907-28-2004DTaP, unspecified formulationElizabeth Norberto [phone]-JiqylLutheran Hospital07-28-2004 measles, mumps and rubella virus vaccineElizadaniel Thornton [phone]-KqpueLutheran Hospital07-28-2004 poliovirus vaccine, unspecified formulationElisampson Thornton [phone]-Ldjxr[address] [place], [place] 2482611-15-2000DTaP, unspecified formulationElizadaneil Thornton [phone]-Icces[address] [place], [place] 2482611-08-1999 measles, mumps and rubella virus vaccineElizabemonty Thornton [phone]-Jjsri[address] [place], [place] 2482611-08-1999 varicella virus vaccineElizadaniel Thornton [phone]-Edyiq[address] [place], [place] 2482607-23-1999DTaP, unspecified formulationElisampson Thornton [phone]-Tadyq[address] [place] [address] Primary Mvja03-37-1849MKoU, unspecified formulationElizadaniel Thornton [phone]-Pmxoq[address] [place] [address] Primary Nxfw28-74-9906UZiY, unspecified formulationYa Thornton [phone]-Ahvtp[address] [place], [place] 2482610-31-1998 hepatitis B vaccine, pediatric or pediatric/adolescent dosageElizadaniel Thornton [phone]-GmandMercy Health [facility] Primary CareNEGATED: Highlighted row has not occurred!26-24-7040alwgxltrs virus vaccine, unspecified formulationDaniel Gray [phone]-ObdztMercy Health [facility] Digestive HealthNEGATED: Highlighted row has not occurred!67-69-0479tuugwcano virus vaccine, unspecified formulationRitu Desai [phone]-IxxwxMercy Health St[facility] Payers DatePayer CategoryPayerPolicy [id number] [id number] Managed Care - [id number] [id number] Health [id number] 2023Medicaid [facility] MEDICAID [id number] Care Other (unspecified)[employer] [id number] 2.840.1.253179.3.579.2.23879-38-1234Eoobqsj3280745 2.160.1.335283.3.579.2.92161-67-3859Todcugc4052070 2.0.1.147517.3.579.2.93478-15-3540Uhxktsl6665699 2.840.1.563402.3.579.2.57776-53-5819Wpuwotx2428143 2.840.1.138218.3.579.2.21904-25-9988Bdncrjj2516591 2.0.1.733339.3.579.2.70508-71-4515Hexfnqp0112011 2.0.1.969772.3.579.2.47042-37-9677Zuswcxf2605440 2.840.1.149212.3.579.2.99449-81-4892Utnvqsq5037234 2.840.1.768218.3.579.2.73237-81-2182Qovzxur5196777 2.840.1.971791.3.579.2.84689-68-2869Yadarsd10349449 2.16840.1.410066.3.579.2.10771-21-9490Ztxdiyo36811616 2.840.1.563586.3.579.2.37526-67-2095Bvdqzqb14687872 2.16840.1.432307.3.579.2.49852-92-9324Vefkdrs36898503 2.16840.1.985566.3.579.2.18500-36-8322Onmancc64354322 2.16840.1.640292.3.579.2.92156-89-8047Umthkzt42486858 2.16840.1.630553.3.579.2.94657-76-9083Lwlzxqm24010732 2.16840.1.501776.3.579.2.83894-07-1390Jmidftj48686202 2..1.037035.3.579.2.53774-01-2378Wfnszzq23983172 2.840.1.308847.3.579.2.34287-55-7469Ttgoxyy85990345 2.840.1.359723.3.579.2.07287-56-3959Wkkxnla45848621 2.840.1.539664.3.579.2.07255-70-6100Jvzpyoe79291287 2..1.843450.3.579.2.01086-11-8575Pxryntf62056332 2.16840.1.674057.3.579.2.94401-79-6233Ncylrzj62835527 2.16840.1.245629.3.579.2.15610-02-0051Ydmizru16746109 2.16840.1.589728.3.579.2.94849-98-2214Ljbzgmk57820101 2.840.1.870101.3.579.2.72505-67-4723Igcowob859373607 2.16.840.1.763287.3.579.2.86274-23-7596Bzstwjh09793600 2.16.840.1.394650.3.579.2.88813-43-2746Vvkmzug02984694 2.16.840.1.934479.3.579.2.48421-10-3044Yvpxsee59418953 2.16.840.1.331995.3.579.2.24353-78-9788Deligtr54987286 2.16.840.1.729417.3.579.2.44984-64-6027Axzyado07668138 2.16.840.1.644453.3.579.2.85774-65-1765Vgargri30749834 2.16.840.1.070257.3.579.2.36555-53-3317Xlpvhxu17996811 2.16.840.1.326637.3.579.2.89977-40-7021Vhutobq410886213 2.16840.1.279561.3.579.2.516049-76-3355Lebfmxw182910753 2.16.840.1.586322.3.579.2.434515-31-5089Hcsfuqa128662345 2.16.840.1.369011.3.579.2.029986-31-5700Mitjxgs927686105 2.16.840.1.365697.3.579.2.680888-48-5171Lqypina988974433 2.16.840.1.517448.3.579.2.850339-89-4957Alspckg78402631 2.16.840.1.285803.3.579.2.013039-47-0673Jxxjifn76667762 2.16.840.1.646814.3.579.2.789440-55-8801Fnsspsm97350163 2.16.840.1.532146.3.579.2.097335-54-6273Tnackkm11029874 2.16.840.1.971444.3.579.2.166642-99-9079Qmfhztq17830195 2.16.840.1.058334.3.579.2.529110-69-1506Prmdkym44523558 2.16.840.1.554030.3.579.2.112748-07-3482Abrwbda31120163 2.16.840.1.836206.3.579.2.258801-44-6550Qvzfwqx03608843 2.16.840.1.527681.3.579.2.184626-01-8181Yoqkagu6379657 2.16.840.1.968330.3.579.2.583275-39-4522Olxjsct2669118 2.16.840.1.359266.3.579.2.757681-09-3279Rpjx-szz64-25-7566Ejxknci886183683862 44-31-5095Knjubjg15512605553130399Rbwwfad086207[id number] 2.0.1.816656.3.579.2.097Wbtitsl112677068118 Social History DateTypeDetailFacilityStart: 05-03-2022 End: 59-70-9271Aydxpbe smoking statusNever smoked tobacco (finding)[facility] Primary CareStart: 39-05-2558Wblplaq smoking statusNeverKindred Healthcare Primary CareStart: 07-12-2023 End: 78-26-6450Zzu Assigned At BirthFeMercy Health St. Elizabeth Boardman Hospitaltart: 12-12-2023 End: 75-73-9998Oqkdgmsir beverage intakeCurrent drinker of alcohol (finding)[facility]ultonStart: 07-12-2023 End: 36-20-8577Onokeow of Social functionNOMS HealthcareStart: 47-98-6118Tiniogj Commentoccasional alcohol useNOMS HealthcareStart: 26-98-7025Yer assigned at birthNot on fileFulton Medical Center- FultonTobacco smoking status NHISTobacco smoking consumption unknownSt. Francis Hospitalexual OrientationUniversity Hospitals Tripoint [facility] Start: 07-02-2009 End: 96-57-9297EcwKtvfam (finding)[facility] Hospitaltart: 06-30-2024 PregnancyNOMS HealthcareStart: 71-38-1032Nhrpmsf use and exposureSmokeless tobacco non-userWyandot Memorial Hospital SystemStart: 09-24-2024 End: 87-88-0302Zbxvlkhij beverage intakeEx-drinker (finding)[facility] SystemThe thought of harming myself has occurred to [facility] Medical Equipment Procedure CodeEquipment CodeEquipment Original TextEquipment IdentifierDates Glucose Test Strips, See Instructions, 1 EA, 3, Glucose Test Strips, [facility] [employer] [facility], Supply, 166, cm, 10/08/22 15:10:00 EDT, Height/Length Dosing, 57.8, kg, 10/08/22 15:10:00 EDT, Weight DosingStart: 47-24-7969Ansoxkg, See Instructions, 100 lancet(s), 3, Lancets, [facility] [employer] [facility], Supply, 166, cm, 10/08/22 15:10:00 EDT, Height/Length Dosing, 57.8, kg, 10/08/22 15:10:00 EDT, Weight DosingStart: 98-59-5009Kmzwiwk Test Strips, See Instructions, 1 EA, 3, Glucose Test Strips, [facility] [employer] [facility], Supply, 166, cm, 10/08/22 15:10:00 EDT, Height/Length Dosing, 57.8, kg, 10/08/22 15:10:00 EDT, Weight DosingStart: 60-88-9676Syddfsl, See Instructions, 100 lancet(s), 3, Lancets, DiscNobl [facility], Supply, 166, cm, 10/08/22 15:10:00 EDT, Height/Length Dosing, 57.8, kg, 10/08/22 15:10:00 EDT, Weight DosingStart: 72-77-8574Fmjszdg Test Strips, See Instructions, 1 EA, 3, Glucose Test Strips, [facility]Nobl [facility] [facility], Supply, 166, cm, 10/08/22 15:10:00 EDT, Height/Length Dosing, 57.8, kg, 10/08/22 15:10:00 EDT, Weight DosingStart: 29-73-6043Bjfrvzo, See Instructions, 100 lancet(s), 3, Lancets, [facility] [employer] [facility], Supply, 166, cm, 10/08/22 15:10:00 EDT, Height/Length Dosing, 57.8, kg, 10/08/22 15:10:00 EDT, Weight DosingStart: 52-56-2404Kouxzeg Test Strips, See Instructions, 1 EA, 3, Glucose Test Strips, DiscNobl [facility], Supply, 166, cm, 10/08/22 15:10:00 EDT, Height/Length Dosing, 57.8, kg, 10/08/22 15:10:00 EDT, Weight DosingStart: 13-03-8105Tviycbm, See Instructions, 100 lancet(s), 3, Lancets, [facility] [facility], Supply, 166, cm, 10/08/22 15:10:00 EDT, Height/Length Dosing, 57.8, kg, 10/08/22 15:10:00 EDT, Weight DosingStart: 03-81-2454Nvszxvv Test Strips, See Instructions, 1 EA, 3, Glucose Test Strips, DiscNobl [facility] [employer] [facility], Supply, 166, cm, 10/08/22 15:10:00 EDT, Height/Length Dosing, 57.8, kg, 10/08/22 15:10:00 EDT, Weight DosingStart: 55-94-1848Fmirxgj, See Instructions, 100 lancet(s), 3, Lancets, [facility], Supply, 166, cm, 10/08/22 15:10:00 EDT, Height/Length Dosing, 57.8, kg, 10/08/22 15:10:00 EDT, Weight DosingStart: 82-23-2894Orrbmuc Test Strips, See Instructions, 1 EA, 3, Glucose Test Strips, [facility] [employer] [facility], Supply, 166, cm, 10/08/22 15:10:00 EDT, Height/Length Dosing, 57.8, kg, 10/08/22 15:10:00 EDT, Weight DosingStart: 46-29-8157Ohwsuuo, See Instructions, 100 lancet(s), 3, Lancets, [facility], Supply, 166, cm, 10/08/22 15:10:00 EDT, Height/Length Dosing, 57.8, kg, 10/08/22 15:10:00 EDT, Weight DosingStart: 56-55-7407Nruezto Test Strips, See Instructions, 1 EA, 3, Glucose Test Strips, [facility], Supply, 166, cm, 10/08/22 15:10:00 EDT, Height/Length Dosing, 57.8, kg, 10/08/22 15:10:00 EDT, Weight DosingStart: 44-35-3900Ketrnxa, See Instructions, 100 lancet(s), 3, Lancets, [facility], Supply, 166, cm, 10/08/22 15:10:00 EDT, Height/Length Dosing, 57.8, kg, 10/08/22 15:10:00 EDT, Weight DosingStart: 84-92-4469Kjnxypu Test Strips, See Instructions, 1 EA, 3, Glucose Test Strips, DiscNobl [facility] [facility], Supply, 166, cm, 10/08/22 15:10:00 EDT, Height/Length Dosing, 57.8, kg, 10/08/22 15:10:00 EDT, Weight DosingStart: 33-96-7418Obhrxor, See Instructions, 100 lancet(s), 3, Lancets, [facility], Supply, 166, cm, 10/08/22 15:10:00 EDT, Height/Length Dosing, 57.8, kg, 10/08/22 15:10:00 EDT, Weight DosingStart: 46-21-3184Vjkinet Test Strips, See Instructions, 1 EA, 3, Glucose Test Strips, [employer] #37, Supply, 166, cm, 10/08/22 15:10:00 EDT, Height/Length Dosing, 57.8, kg, 10/08/22 15:10:00 EDT, Weight DosingStart: 34-32-4564Ifbpbyn, See Instructions, 100 lancet(s), 3, Lancets, [employer] #37, Supply, 166, cm, 10/08/22 15:10:00 EDT, Height/Length Dosing, 57.8, kg, 10/08/22 15:10:00 EDT, Weight DosingStart: 82-31-8132Arsvkit Test Strips, See Instructions, 1 EA, 3, Glucose Test Strips, [employer] #37, Supply, 166, cm, 10/08/22 15:10:00 EDT, Height/Length Dosing, 57.8, kg, 10/08/22 15:10:00 EDT, Weight DosingStart: 72-86-3213Hduumod, See Instructions, 100 lancet(s), 3, Lancets, [employer] #37, Supply, 166, cm, 10/08/22 15:10:00 EDT, Height/Length Dosing, 57.8, kg, 10/08/22 15:10:00 EDT, Weight DosingStart: 94-64-6736Dzwgmho Test Strips, See Instructions, 1 EA, 3, Glucose Test Strips, [facility] [employer] [facility], Supply, 166, cm, 10/08/22 15:10:00 EDT, Height/Length Dosing, 57.8, kg, 10/08/22 15:10:00 EDT, Weight DosingStart: 36-24-3808Ijbqkpb, See Instructions, 100 lancet(s), 3, Lancets, [employer] #37, Supply, 166, cm, 10/08/22 15:10:00 EDT, Height/Length Dosing, 57.8, kg, 10/08/22 15:10:00 EDT, Weight DosingStart: 66-87-1533Iqugpwi Test Strips, See Instructions, 1 EA, 3, Glucose Test Strips, [employer] #37, Supply, 166, cm, 10/08/22 15:10:00 EDT, Height/Length Dosing, 57.8, kg, 10/08/22 15:10:00 EDT, Weight DosingStart: 81-89-4784Idzfpuj, See Instructions, 100 lancet(s), 3, Lancets, [employer] #37, Supply, 166, cm, 10/08/22 15:10:00 EDT, Height/Length Dosing, 57.8, kg, 10/08/22 15:10:00 EDT, Weight DosingStart: 49-25-1820Nfi daily as directed & as neededStart: 03-26-2021 Functional Status EhjcFcwxgjyfovPwsifeQlmcdebi93-67-8680Opwtygaspf StatusN/[facility] Primary Lfgt34-52-1127Czimdelmfl StatusN/[facility] Primary Fmlp09-70-0486Mxdwioevgh StatusN/[facility] Primary Scgp88-77-2747Bewtsnxbzr StatusN/[facility] Digestive Health 60-58-9894Sojqwzuufc StatusN/[facility] Primary Geov76-43-2533 Functional StatusN/[facility] Primary Care Clinical Notes 05-03-2022 to 01-28-2025 Note Date & CmtkWrhwPippbjzy84-09-1914 History of Present illness Narrative* Abril Stone [...] nursing note reviewed. Exam conducted with a crutcher helper present. Vitals: Estimated body mass index is 26.29 kg/m as calculated from the following: Height as of 11/29/22: 5' 5 . Weight as of this encounter: 158 lb. BP: 124/70 Patient's last menstrual period was 06/16/2024. Assessment/Plan ICD-10-CM 1. Third trimester ([facility]) Z34.93 POCT urinalysis dipstick manually resulted 2. 32 weeks gestation of ([facility]) Z3A.32 3. Thyroid disease E07.9 4. [...] of: Santosh Marshall DO documented in this encounterFulton Medical Center- FultonOyqwaklmlb78-25-5023 History of Present illness Narrative* Abril Stone [...] nursing note reviewed. Exam conducted with a crutcher helper present. Vitals: Estimated body mass index is 26.71 kg/m as calculated from the following: Height as of 23: 5' 5 . Weight as of this encounter: 160 lb 8 oz. BP: 126/72 Patient's last menstrual period was 06/16/2024. Assessment/Plan ICD-10-CM 1. Third trimester ([facility]) Z34.93 POCT urinalysis dipstick manually resulted 2. 30 weeks gestation of ([facility]) Z3A.30 Return OB: Patient presents today for [...] of: Santosh Marshall DO documented in this encounterFulton Medical Center- FultonQsjqrimocu02-20-2754 History of Present illness Narrative* Daiana Villarreal [...] nursing note reviewed. Exam conducted with a crutcher helper present. Vitals: Estimated body mass index is 25.38 kg/m as calculated from the following: Height as of 11/29/22: 5' 5 . Weight as of this encounter: 152 lb 8 oz. BP: 106/68 Patient's last menstrual period was 06/16/2024. ASSESSMENT & PLAN ICD-10-CM 1. Third trimester ([facility]) Z34.93 POCT urinalysis dipstick manually resulted 2. 28 weeks gestation of ([facility]) Z3A.28 Patient presents today for a routine obstetrics appointment. Patient is currently 28w2d with a Estimated Date of Delivery: 03/23/25. Patient had growth scan done prior to today's appointment. Patient will start NST/BPP at 32 weeks. Patient to return to clinic in 2 weeks. Documented by Daiana Villarreal LPN on behalf of: Santosh Marshall DO documented in this encounterFulton Medical Center- FultonBsuzllaprf40-54-2819 History of Present illness Narrative* LIS Man [...] ASSESSMENT & PLAN ICD-10-CM 1. Second trimester ([facility]) Z34.92 POCT urinalysis dipstick manually resulted 2. 25 weeks gestation of ([facility]) Z3A.25 3. Diabetes mellitus screening Z13.1 [...] of: LIS Man documented in this encounterNOMS Ndozwkeiua07-83-7142 History of Present illness Narrative* Abril Stone, [...] nursing note reviewed. Exam conducted with a crutcher helper present. Vitals: Estimated body mass index is 23.15 kg/m as calculated from the following: Height as of 11/29/22: 5' 5 . Weight as of this encounter: 139 lb 1.9 oz. BP: 110/72 Patient's last menstrual period was 06/16/2024. ASSESSMENT & PLAN ICD-10-CM 1. Second trimester ([facility]) Z34.92 POCT urinalysis dipstick manually resulted 2. 21 weeks gestation of ([facility]) Z3A.21 POCT urinalysis dipstick manually resulted [...] 4 weeks; She is followed closely per [facility] with history of hypothyroidism. Will obtain growth ultrasounds every 4 weeks and begin NST/BPP at 32 weeks. Documented by Abril Stone NP on behalf of: Santosh Marshall DO documented in this encounterFulton Medical Center- FultonIfzpblshhj22-06-1712 History of Present illness Narrative* Nadira Salazar [...] risk Have you been seen here at [facility] in a previous ? Recent ER visits or hospitalizations? No Bring blood sugar log or meter with you today? (Please bring them with you for every visit at [facility]) NA Flu vaccine (Jan-May)? NA Any [...] Jacklyn Campos MD, FACOG (she/hers) Maternal- Medicine [facility] [address] [place] [address] This document was created with [employer] technology. Though I make every effort to review the dictation as it is transcribed, on occasion the spoken word can be misinterpreted by the technology leading to inappropriate words, phrases, or sentences. This note is addressed to the requesting provider as a consultation for clinical guidance. Specificmedical abbreviations are occasionally used and those are generally approved by the [place]?Board of?Obstetrics and?Gynecology?as well as?Lucy campos abbreviations. The above plan of care was based solely on the diagnoses for which a consultation was requested. ?More frequent testing may be indicated based on her other medical/obstetrical conditions. The management of other or medical conditions is beyond the scope of requested consultation and will c ontinue to be followed by the primary lozenge maker or primary care provider. Note to patient: [...] opinion of the practitioner. documented in this encounterSelect Medical Specialty Hospital - Southeast OhioSothis Tecnologías [place]93-59-7967 History of Present illness Narrative* LIS Man [...] ASSESSMENT & PLAN ICD-10-CM 1. Second trimester ([facility]) Z34.92 2. 17 weeks gestation of ([facility]) Z3A.17 POCT urinalysis dipstick manually resulted [...] behalf of: LIS Man documented in this encounterFulton Medical Center- FultonNedpvaadnl82-18-9164 History of Present illness Narrative* Aliya JeronimoKALE [...] nursing note reviewed. Exam conducted with a crutcher helper present. Vitals: Estimated body mass index is 22.1 kg/m as calculated from the following: Height as of 11/29/22: 5' 5 . Weight as of this encounter: 132 lb 12.8 oz. BP: 112/70 Patient's last menstrual period was 06/16/2024. ASSESSMENT & PLAN ICD-10-CM 1. 13 weeks gestation of ([facility]) Z3A.13 2. Second trimester ([facility]) Z34.92 3. Thyroid disease E07.9 levothyroxine [...] or undercooked meat, and [facility]. Patient has been consulted regarding any further do's and don'tsof . Patient voiced understanding and all questions and concerns were answered. Pt has h/o IUGR, thyroid disease, pt being referred to [facility] for level II ultrasound. Pt should be taking 125mcg of levothyroxine. Pt voiced understanding. Pt to start baby aspirin. Orders Placed This Encounter Procedures Glucose tolerance, 1 hour Follow Up: Patient is to return in 4 weeks for routine OB appointment. Documented by Aliya Jeronimo LPN on behalf of: Santosh Marshall DO documented in this encounterFulton Medical Center- [id number] History of Present illness Narrative* Carmita Tapia, [employer]ER[employer] ASSISTANT - 08/17/2024 9:30 AM EDT Reason for [...] or undercooked meat, and stay away from [facility]. Patient has also been advised to not change litter boxes and eat 6 small meals a day. Patient has been consulted regarding the do's and don'ts ofpregnancy. Patient was given labs and all questions and concerns were answered. Patient was sent in Magnesium for headaches. Patient given [place] labs to do with initial labs along [...] by: Carmita Tapia LPN documented in this encounterFulton Medical Center- [id number] NotePatient Education Endocrinology Hypothyroidism Hypothyroidism is when [...] Follow these instructions at home: ??? Take [id number] and prescription medicines only as told by [...] Reviewed: 03/09/2022 [employer] Patient Education ? 2023 [email or web address] Obstetrics and Gynecology Health Maintenance, Female Adopting a healthy lifestyle and getting preventive care are important in promoting health and wellness. Ask your health care provider about: ??? The right schedule for you to have regular tests and exams. ??? Things (more content not included)...[facility]04-17-2025 NotePatient Education ENT How to Perform [...] cannot use soap and water, use hand bone crusher. 2. Wash your device using the directions [...] provider. Document Revised: 08/24/2021 Document Reviewed: 08/24/2021 [employer] Patient Education ? 2023 [place]. Infectious Disease Sinus Infection, Adult A sinus [...] Your s (more content not included)...[facility]09-23-2024 History of Present illness Narrative* Daiana [...] Diagnosis Date BMI 23.0-23.9, adult Thyroid disease ([facility]/HCC) Well woman exam HISTORY PAST MEDICAL [...] nursing note reviewed. Exam conducted with a crutcher helper present. Vitals: Estimated body mass index is [...] of: Santosh Marshall DO [id number] Hospital Discharge instructions Patient Education 08/08/2023 16:25:47 [...] to help relieve pain. General instructions Take tfcj-zqn-odqsuwi and prescription medicines only as told by [...] provider. Document Revised: 10/22/2020 Document Reviewed: 10/22/2020 [employer] Patient Education 2022 [place]. 08/08/2023 16:25:44 Hemorrhoids Hemorrhoids Hemorrhoids are swollen [...] 3 times a day. General instructions Take wtdy-qet-tcydhco and prescription medicines only as told by [...] provider. Document Revised: 09/16/2021 Document Reviewed: 09/16/2021 [employer] Patient Education 2022 [place]. 08/08/2023 16:25:43 Urinary Tract Infection, Adult Urinary [...] Treatment for this condition includes: Antibiotic medicine. Sast-squ-fotcjyn medicines to treat discomfort. Drinking enough water [...] Follow these instructions at home: Medicines Take adpx-nfy-pjodmqb and prescription medicines only as told by [...] provider. Document Revised: 10/17/2020 Document Reviewed: 10/17/2020 [employer] Patient Education 2022 [place]. 08/08/2023 16:25:41 Hypothyroidism Hypothyroidism Hypothyroidism is when [...] away. Follow these instructions at home: Take uqym-plf-ifgoigr and prescription medicines only as told by [...] provider. Document Revised: 03/09/2022 Document Reviewed: 03/09/2022 [employer] Patient Education [address] [place] [facility] 05-20-2024 Evaluation + Plan note Future Scheduled Tests Laboratory* UA with Cult Rflx 08/08/23 * CBC w/ Auto Diff 02/08/24 * Comprehensive Metabolic Panel 02/08/24 * Thyroid Stimulating Hormone 02/08/24 * Thyroid Stimulating Hormone 05/16/23 * Free T4 02/08/24 * Free T4 05/16/[address] [facility] 12-20-2023 Hospital Discharge instructions Patient [...] including vitamins, herbs, eye drops, creams, and yjtn-epf-atbqjry medicines. ?Whether you are or may be [...] provider. Document Revised: 11/18/2021 Document Reviewed: 10/10/2020 [employer] Patient Education 2022 [place]. 03/09/2023 08:08:48 Urinary Tract Infection, Adult Urinary [...] Treatment for this condition includes: Antibiotic medicine. Ursn-pvv-slzhsab medicines to treat discomfort. Drinking enough water [...] Follow these instructions at home: Medicines Take hejb-adz-juaywav and prescription medicines only as told by [...] provider. Document Revised: 10/17/2020 Document Reviewed: 10/17/2020 [employer] Patient Education 2022 [place]. 03/09/2023 08:08:46 Hypothyroidism Hypothyroidism Hypothyroidism is when [...] away. Follow these instructions at home: Take wfbk-gii-tzytjlh and prescription medicines only as told by [...] provider. Document Revised: 03/09/2022 Document Reviewed: 03/09/2022 [email or web address] Patient Education 2022 [place]. Follow Up Care 03/07/2023 12:06:45 With:Ya Wang FAM, [facility] Address: [address], [address] [place] [phone] Business (1) When:05/25/2023 Comments:for f/u [facility] 12-04-2023 Hospital Discharge instructions Patient [...] Follow these instructions at home: Medicines Take eqbo-vru-dhmwjqq and prescription medicines only as told by [...] provider. Document Revised: 10/17/2020 Document Reviewed: 10/17/2020 [employer] Patient Education 2022 [place]. Follow Up Care 02/21/2023 08:19:47 With:Ya Wang FAM, MED Address: [address] [place], [place] [phone] Business (1) When:05/25/2023 Comments:for f/u [facility] 09-12-2023 Hospital Discharge instructions Patient [...] Bulgur wheat. Millet. Quinoa. Bran muffins. Popcorn. Glynn wafer crackers. Meats and other proteins Dewitt beans, kidney beans, and díaz beans. Soybeans. [...] Cream cheese. Sour cream. Fats and oils [place]. Beverages Soft drinks. Other foods Cakes and [...] Document Reviewed: 07/10/2020 Elsevier Patient Education 2022 [place]. Follow Up Care 11/11/2022 12:10:41 With:Daniel Gray CNP Address: When:2 weeks Comments:Following EGD/Colonoscopy. [facility] 08-24-2023 Hospital Discharge instructions Patient [...] per serving. Talk with a diet and auto radiator specialist (dietitian) if you have questions about [...] Bulgur wheat. Millet. Quinoa. Bran muffins. Popcorn. Glynn wafer crackers. Meats and other proteins [place], kidney, and díaz beans. Soybeans. Split peas. [...] Cream cheese. Sour cream. Fats and oils [place]. Beverages Soft drinks. Other foods Cakes and [...] 03/07/2006 Document Revised: 01/09/2018 Document Reviewed: 01/09/2018 [employer] Patient Education 2020 [employer]. 11/11/2022 01:00:54 Hemorrhoids Hemorrhoids Hemorrhoids are swollen [...] 3 times a day. General instructions Take tqrx-uez-qaknbld and prescription medicines only as told by [...] provider. Document Revised: 09/16/2021 Document Reviewed: 09/16/2021 [employer] Patient Education 2022 [place]. Follow Up Care 11/08/2022 14:59:04 With:Ya Wang FAM, [facility] Address: [address] [place] [address] [facility] (1) When:Within 3 Month(s) Comments:3 mo f/u [facility] 02-13-2023 Hospital Discharge instructions Patient [...] away. Follow these instructions at home: Take axbo-ihw-ovwqvni and prescription medicines only as told by [...] 03/07/2006 Document Revised: 02/17/2018 Document Reviewed: 02/15/2018 [employer] Patient Education [employer]. Follow Up Care 04/05/2022 12:35:49 With:Ritu Desai CNP Address: [address] [place] [phone] When:1 year Comments:or sooner if needed. [facility] Evaluation + Plan note No data available for this section [facility] Evaluation + Plan note Future Appointments Appointment Date:11/30/2022 12:00:00 PM Scheduled Provider:Daniel Gray CNP [facility] Appointment Type:BAD New Patient Appointment Date:04/04/2023 01:00:00 PM Scheduled Provider:Ya Wang Location:[facility] Appointment Type: Open Future Scheduled Tests Laboratory* TSH With T4fr Reflex 10/08/[address] [facility] Evaluation + Plan note Future Appointments Appointment Date:04/04/2023 01:00:00 PM Scheduled Provider:Ya Wang Location:[facility] Appointment Type:FM Open Future Scheduled Tests Laboratory* TSH With T4fr Reflex 10/08/[address] [facility] Evaluation + Plan note Future Appointments Appointment Date:07/25/2023 10:00:00 AM Scheduled Provider:Ya Wang Location:[facility] Appointment Type:FM Open Future Scheduled Tests Laboratory* T3 Free 02/21/23 * Thyroid Stimulating Hormone 02/21/23 * Free T4 02/21/[address] [facility] Evaluation + Plan note Future Appointments Appointment Date:07/25/2023 10:00:00 AM Scheduled Provider:aY Wang Location:[facility] Appointment Type:FM Open Diagnostic Tests Pending * Urine Culture 02/21/23 Future Scheduled Tests Laboratory* T3 Free 02/21/23 * Thyroid Stimulating Hormone 02/21/23 * Free T4 02/21/23 [facility] Future App[facility]ments Appointment Date:07/25/2023 10:00:00 AM Scheduled Provider:Ya [facility] Type:FM Open Future Scheduled Tests Laboratory* T3 Free 02/21/23 * Thyroid Stimulating Hormone 02/21/23 * Free T4 02/21/23 Radiology* US Retroperitoneal Complete 03/09/[address] [facility] Evaluation + Plan note Future Appointments Appointment Date:07/25/2023 10:00:00 AM Scheduled Provider:Ya Wang [facility] Appoint[facility] Type:FM Open Diagnostic Tests Pending * Urine Culture 03/09/23 Future Scheduled Tests Laboratory* T3 Free 02/21/23 * Thyroid Stimulating Hormone 02/21/23 * Free T4 02/21/23 Radiology* US Retroperitoneal Complete 03/09/23 [facility] Future Appointments Appointment Date:07/12/2023 09:30:00 AM Scheduled Provider:OPAL LUZ PA-C Location:[facility] Appointment Type:URO New Patient Appointment Date:07/25/2023 10:00:00 AM Scheduled Provider:Ya Wang [facility] Type:FM Open Diagnostic Tests Pending * T3 Free 03/22/23 [facility] Future Appointments Appointment Date:07/12/2023 09:30:00 AM Scheduled Provider:OPAL LUZ PA-C Location:[facility] Appointment Type:URO New Patient Appointment Date:07/25/2023 10:00:00 AM Scheduled Provider:Ya Wang [facility] Type:FM Open [facility] Future Appointments Appointment Date:07/25/2023 10:00:00 AM Scheduled Provider:Ya Wang Location:[facility] Appointment Type:FM Open Future Scheduled Tests Laboratory* Thyroid Stimulating Hormone 05/16/23 * Free T4 05/16/23 [facility] evaluation + Plan note Future Scheduled Tests Laboratory* CBC w/ Auto Diff 02/08/24 * Comprehensive Metabolic Panel 02/08/24 * Thyroid Stimulating Hormone 02/08/24 * Free T4 02/08/24 [facility] Future Appointments Appointment Date:07/09/2024 08:00:00 AM Scheduled Provider:Marta Rivas Location:[facility] Appointment Type:FM New Patient - Adult Future Scheduled Tests Laboratory* CBC w/ Auto Diff 02/08/24 * Comprehensive Metabolic Panel 02/08/24 * Thyroid Stimulating Hormone 02/08/24 * Free T4 02/08/24 [facility] Evaluation note* Diagnosis Well woman exam with routine gynecological exam Routine gynecological examination [facility] Diagnosis Family history of autism Family history of psychiatric condition [facility] Diagnosis Missed menses , unspecified gestational age Encounter for supervision of normal first in first trimester Nonintractable headache, unspecified chronicity pattern, unspecified headache type documented in this encounter [facility]* Diagnosis 13 weeks gestation of (HHS-HCC) Second trimester (HHS-HCC) state, incidental Thyroid disease Unspecified disorder of thyroid History of prior with IUGR Diabetes mellitus screening Screening for diabetes mellitus documented in this encounter [facility]* Diagnosis Thyroid disease affecting - Primary History of prior with IUGR [facility] Diagnosis Second trimester (HHS-HCC) state, incidental 17 weeks gestation of (HHS-HCC) documented in this encounter [facility]* Diagnosis 20 weeks gestation [...] rupture of membranes [facility]* Diagnosis 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 trimester- Primary History of prior with IUGR History of premature rupture of membranes [facility] Diagnosis Hypothyroidism, unspecified type- Primary Second trimester (HHS-HCC) state, incidental 21 weeks gestation of (HHS-HCC) Vaginal discharge Leukorrhea, not specified as infective STD exposure documented in this encounter [facility]* Diagnosis Size of fetus inconsistent with dates in second trimester (HHS-HCC)- Primary Second trimester (HHS-HCC) state, incidental 25 weeks gestation of (HHS-HCC) Diabetes mellitus screening Screening for diabetes mellitus documented in this encounter [facility]* Diagnosis Third trimester (HHS-HCC) state, incidental 28 weeks gestation of (HHS-HCC) documented in this encounter [facility]* Diagnosis Third trimester (HHS-HCC) state, incidental 30 weeks gestation of (HHS-HCC) documented in this encounter [facility]* Diagnosis Third trimester (HHS-HCC) state, incidental 32 weeks gestation of (HHS-HCC) Thyroid disease Unspecified disorder of thyroid History of prior with IUGR Hypothyroidism, unspecified type [facility] No data available for this section [facility]ructionsNot on filedocumented in this encounter [facility] filedocumented in this encounter [facility] on filedocumented in this encounter [facility]Not on filedocumented in this encounter [facility] No data available for this section [facility] Summary Purpose Family History [...] InactivatedComments04/21/2021 7:00 PM2 1:57 PMDate Activated Date IxekztlslspFlupmkoa99/14/2021 5:01 PM03/26/2021 7:46 PMDate ActivatedDate InactivatedComments05/30/2021 7:15 AM06/01/2021 2:55 PMDate ActivatedDate InactivatedComments05/12/2021 1:10 PM2 2:16 PMDate ActivatedDate InactivatedComments04/21/2021 7:00 PM2 1:57 PMDate ActivatedDate NnhtptvsybwMxnguoui16/14/2021 5:01 PM03/26/2021 7:46 PM Additional Source Comments INFORMATION SOURCE (unrecogn ized section and content) DATE CREATED AUTHOR 11/15/2021 [facility] DATE CREATED AUTHOR AUTHOR'S ORGANIZ ATION 09/09/[address] [facility] DATE CREATED AUTHOR AUTHOR'S ORGANIZ ATION 05/21/2024 [facility] DATE CREATED AUTHOR AUTHOR'S ORGANIZ ATION 07/06/[address] [facility] DATE CREATED AUTHOR AUTHOR'S ORGANIZ ATION 07/10/[address] [facility] DATE CREATED AUTHOR AUTHOR'S ORGANIZ ATION 07/13/[address] [facility] DATE CREATED AUTHOR AUTHOR'S ORGANIZ ATION 11/21/2024 [facility] DATE CREATED AUTHOR AUTHOR'S ORGANIZ ATION 12/12/2024 [facility] DATE CREATED AUTHOR AUTHOR'S ORGANIZ ATION 01/28/2025 [facility] EPIC Patient Care team informatio n (unrecognized section and content) Team MemberRelationshipSpecialtyStart DateEnd Date Staci White MD [address] [place] [address] PCP - GeneralInternal Medicine11/29/22Team MemberRelationshipSpecialtyStart Date End Date Staci White MD [address] [place] [address] PCP - GeneralInternal Medicine11/29/22Team MemberRelationshipSpecialtyStart Date End Date Staci White MD [address] [place] [address] PCP - GeneralInternal Medicine11/29/22Team MemberRelationshipSpecialtyStart Date End [place] [address] Attending ProviderMedical Clinical Genetics05/14/24Team MemberRelationship SpecialtyStart DateEnd Date Staci White MD [address] [place] [address] PCP - GeneralInternal Medicine11/29/22am MemberRelationshipSpecialtyStart Date End Date Staci White MD [address] [place] [address] PCP - GeneralInternal Medicine11/29/22am MemberRelationshipSpecialtyStart Date End Date Staci White MD [address] [place] [address] PCP - GeneralInternal Medicine11/29/22am MemberRelationshipSpecialtyStart Date End Date Staci White MD [address] [place] [address] PCP - GeneralInternal Medicine11/29/22am MemberRelationshipSpecialtyStart Date End Date Staci White MD PCP - GeneralInternal Medicine04/07/21am MemberRelationshipSpecialtyStart Date End Date Staci White MD [address] [place] [address] PCP - GeneralInternal Medicine11/29/22am MemberRelationshipSpecialtyStart Date End Date Staci White MD PCP - GeneralInternal Medicine04/07/21am MemberRelationshipSpecialtyStart Date End Date Staci White MD PCP - GeneralInternal Medicine04/07/21Te MemberRelationshipSpecialtyStart Date End Date Staci White MD [address] [place] [address] [facility] - [facility]11/29/22Te MemberRelationshipSpecialtyStart Date End Date Staci White MD [address] [place] [address] PCP - GeneralInternal [facility]11/29/22Te MemberRelationshipSpecialtyStart Date End Date Staci White MD [address] [place] [address] [facility]11/29/22Te MemberRelationshipSpecialtyStart Date End Date Staci White MD [address] [place] [address] [facility]11/29/22Te MemberRelationshipSpecialtyStart Date End Date Staci White MD [address] [place] [address] PCP - [facility] Centern[facility]11/29/22 Reason for Visit (unrecogniz ed section [...] BE BASED ON THE PRIMARY CLINICAL RECORDS. [facility]. provides no warranty or guarantee of the accuracy or completeness of information in this document.
[2025-02-05 15:37] LABS: Thyroid Stimulating Hormone 1.328 uIU/mL (0.358-3.740)
== END 2025-02-05 14:36 | disposition home or self-care (01) ==
PROVIDERS: Visit Provider Nurse Practitioner Family
DX: E03.9 Hypothyroidism, unspecified (principal)
CPT/HCPCS: 36415; 84443

== ENCOUNTER 2025-02-08 17:54 | Outpatient (OUT) | payer BC, SELFPAY ==
--- OUTSIDE RECORDS SUMMARY | 2025-02-08 17:57 | XMS_ITS | CCD ---
Author Organization [facility] Care Team Providers Care Court Supervisor Name Role Phone JOANNA, DR VILLATORO [...] Care Unavailable Ritu Desai Primary Care Physician [phone] Norberto, Ya L Primary Care Physician [phone] Norberto, Ya L Admitting Unavailable Norberto, Ya [...] Provider UnavailStaci Kirk MD Primary Care Provider [phone] SANTOSH MARSHALL Referring Unavailable STACI WHITE Primary [...] (Original)acetaminophen 500 mg oral tablet (3 sources)Start: 98-82-8079khkr 2 tablets by mouth every eight hours [...] oral capsule (2 sources)Cephalosporin AntibacterialStart: 03-09-2023 End: 92-35-6804kmhr 1 capsule by mouth four times dailyKeflex 500 mg Cap 500 mg = 1 cap(s), Oral, QID, X 7 day(s), # 28 cap(s), Refills(s) 0, [facility]acy: [facility], 166, cm, 03/09/23 7:33:00 EST, Height/Length Dosing, 58.7, kg, 03/09/23 7:33:00 EST, Weight Dosing Start Date: 03/09/23 Stop Date: 03/16/23 Status: OrderedColace (3 sources)Start: 89-31-3209Txeaef Refills(s) 0 Start Date: 11/30/22 Status: OrderedStart: 06-01-2021 End: 88-73-6687lhsj 1 capsule by mouth in the morning, then take 1 capsule by mouth at bedtimedocusate sodium (COLACE) 100 mg capsule Take 1 capsule (100 mg total) by mouth in the morning and 1capsule (100 mg total) before bedtime. 10 capsule 06/01/2021 11/05/2024 Discontinued (Therapy completed)Flonase (3 sources)CorticosteroidStart: 46-37-8012Ailrxix Nasal, Daily, Refill(s) 0 Start Date: 09/10/18 Status: OrderedFREESTYLE LITE METER kit (3 sources)Start: 90-45-2791DMNUDHXIA LITE METER kit See Admin Instructions. 03/26/2021 Activehydrocortisone acetate 0.025 mg/mg / lidocaine hydrochloride 0.03 mg/mg rectal gel (2 sources)Antiarrhythmic, Corticosteroid, Amide Local AnestheticStart: 86-93-1435gxlxycvpylfkpq-lidocaine 2.5%-3% rectal gel with applicator 1 carmen, Rectal, BID, 60 EA, Refill(s) 1,[id number], 166, cm, 11/11/22 9:28:00 EDT, Height/Length Dosing, 59.4, kg, 11/11/22 9:28:00 EDT, Weight Dosing Start Date: 11/19/22 Status: OrderedStart: 23-92-2168dytsueojpshqmb-lidocaine 2.5%-3% rectal gel with applicator 1 carmen, Rectal, BID, 60 EA, Refill(s) 1,[facility], 166, cm, 11/11/22 9:28:00 EDT, Height/Length Dosing, 59.4, kg, 11/11/22 9:28:00 EDT, Weight Dosing Start Date: 11/11/22 Status: Orderedlevothyroxine sodium 0.125 mg oral tablet (20 sources)l-ThyroxineStart: 09-17-2024 End: 55-52-6896oqrs 1 tablet by mouth before mealtimelevothyroxine (Synthroid) 125 MCG tablet Indications: Thyroid disease Take 1 tablet (125 mcg) by mouth in the morning. Take before meals. 30 tablet 11 09/17/2024 09/17/2025 ActiveStart: 08-22-2024 End: 61-94-7524svik 1 tablet by mouth before mealtimelevothyroxine (Synthroid) 25 MCG tablet Indications: Thyroid disease Take 1 tablet (25 mcg) by mouth in the morning. Take before meals. 30 tablet 11 08/22/2024 10/15/2024 Discontinued Start: 08-69-5161yqgs 1 tablet by mouth once dailySynthroid 100 mcg Tab 100 mcg = 1 tab(s), Oral, Daily, # 90 tab(s), Refills(s) 0, Pharmacy: [facility], 166, cm, 08/08/23 15:44:00 EDT, Height/Length Dosing, 56.1, kg, 08/08/23 15:51:00 EDT, Weight Dosing Start Date: 06/19/24 Status: Ordered Quantity: 90.0 Unit: tab(s) Repeat number: 1Start: 06-19-2024 End: 14-43-6940rkaw 1 tablet by mouth once dailylevothyroxine (Synthroid, Levoxyl) 100 MCG tablet Take 100 mcg by mouth Daily 06/19/2024 10/15/2024 DiscontinuedStart: 73-63-6333ecem 1 tablet by mouth once dailySynthroid 100 mcg Tab 100 mcg = 1 tab(s), Oral, Daily, # 90 tab(s), Refills(s) 1, Pharmacy: [facility], 166, cm, 05/16/23 14:25:00 EST, Height/Length Dosing, 56.7, kg, 05/16/23 14:25:00 EST, Weight Dosing Start Date: 05/16/23 Status: OrderedStart: 27-39-6384ipsa 1 tablet by mouth once dailySynthroid 112 mcg Tab 112 mcg = 1 tab(s), Oral, Daily, # 60 tab(s), Refills(s) 0, Pharmacy: [facility], 166, cm, 11/30/22 12:12:00 EDT, Height/Length Dosing, 58.8, kg, 11/30/22 12:12:00 EDT, Weight Dosing Start Date: 02/07/23 Status: OrderedStart: 35-96-8558bkrc 1 tablet by mouth once dailySynthroid 112 mcg Tab 112 mcg = 1 tab(s), Oral, Daily, # 60 tab(s), Refills(s) 0, Pharmacy: [facility], 166, cm, 10/08/22 15:10:00 EDT, Height/Length Dosing, 57.8, kg, 10/08/22 15:10:00 EDT, Weight Dosing Start Date: 10/08/22 Status: OrderedStart: 10-08-2022 End: 42-98-4773vmxn 1 tablet by mouth in the morninglevothyroxine (Synthroid, Levoxyl) 112 MCG tablet Take 112 mcg by mouth in the morning. 10/08/2022 0 08/17/2024 DiscontinuedStart: 68-46-2651hvur 1 tablet by mouth once daily levothyroxine 125 mcg (0.125 mg) Tab 125 mcg = 1 tab(s), Oral, Daily, # 90 tab(s), Refills(s) 3, Pharmacy: [facility], 166, cm, 05/03/22 14:21:00 EST, Height/Length Dosing, 61.2, kg, 05/03/22 14:21:00 EST, Weight Dosing Start Date: 05/03/22 Status: Orderedlevothyroxine (SYNTHROID, LEVOTHROID) 100 MCG tablet Take 125 mcg by mouth in the morning. Activeloratadine 10 mg oral tablet (13 sources)Start: 97-49-3458aikm 1 tablet by mouth once dailyClaritin 10 mg Tab 10 mg, Oral, Daily, # 10 tab(s), Refills(s) 0, Pharmacy: [facility], 166, cm, 12/05/19 13:03:00 EDT, Height/Length Dosing, 61.6, kg, 12/05/19 13:03:00 EDT, Weight Dosing Start Date: 12/05/19 Status: Ordered Quantity: 10.0 Unit: tab(s) Repeat number: 1magnesium oxide 400 mg oral tablet (5 sources)Start: 08-17-2024 End: 28-69-5606yejm 1 tablet by mouth once dailymagnesium oxide (Mag-Ox) 400 MG tablet Indications: Nonintractable headache, unspecified chronicitypattern, unspecified headache type Take 1 tablet (400 mg) by mouth Daily 30 tablet 6 08/17/2024 09/16/2024 Activephenazopyridine hydrochloride 200 mg oral tablet (4 sources)Start: 03-09-2023 End: 66-98-2940velm 1 tablet by mouth three times dailyPyridium 200 mg Tab 200 mg = 1 tab(s), Oral, TID, X 3 day(s), # 9 tab(s), Refills(s) 0, Pharmacy: [facility], 166, cm, 03/09/23 7:33:00 EST, Height/Length Dosing, 58.7, kg, 03/09/23 7:33:00 EST, Weight Dosing Start Date: 03/09/23 Stop Date: 03/12/23 Status: OrderedStart: 02-21-2023 End: 07-86-2995idjx 1 tablet by mouth three times dailyPyridium 200 mg Tab 200 mg = 1 tab(s), Oral, TID, X 3 day(s), # 9 tab(s), Refills(s) 0, Pharmacy: [facility], 166, cm, 02/21/23 13:06:00 EST, Height/Length Dosing, 58.6, kg, 02/21/23 13:06:00 EST, Weight Dosing Start Date: 02/21/23 Stop Date: 02/24/23 Status: OrderedPNV no.95/ferrous fum/folic ac ( ORAL) (3 sources)PNV no.95/ferrous fum/folic ac ( ORAL) Take by mouth in the morning. ActivePNV no.95/ferrous fum/folic ac ( ORAL) Take by mouth daily. Activepolyethylene glycol 3350 228405 mg / potassium chloride 1480 mg / sodium bicarbonate 5720 mg / sodium chloride 54928 mg powder for oral solution (11 sources)Osmotic LaxativeStart: 84-02-8224CbROETDN Paige oral powder for reconstitution See Instructions, 1 EA, Refill(s) 0, Prior to colonoscopy., [id number], 166, cm, 11/30/22 12:12:00 EDT, Height/Length Dosing, 58.8, kg, 11/30/22 12:12:00 EDT, Weight Dosing Start Date: 11/30/22 Status: Ordered Quantity: 1.0 Unit: EA Repeat number: 1Prenatal MV-Min-Fe Fum-FA-DHA ( 1 PO) (20 sources) MV-Min-Fe Fum-FA-DHA ( 1 PO) Take by mouth Active Completed/Discontinued Medications MedicationDrug Class(es)DatesSig (Normalized)Sig (Original)ibuprofen 800 mg oral tablet (2 sources)Nonsteroidal Anti-inflammatory DrugStart: 06-01-2021 End: 29-18-1914xdyg 1 tablet by mouth every eight hours as neededibuprofen (ADVIL,MOTRIN) 800 mg tablet Take 1 tablet (800 mg total) by mouth every 8 (eight) hours as needed (cramping). 30 tablet 06/01/2021 11/05/2024 Discontinued (Therapy completed)nitrofurantoin, macrocrystals 25 mg / nitrofurantoin, monohydrate 75 mg oral capsule (6 sources)Nitrofuran AntibacterialStart: 09-11-2024 End: 31-33-7196jjnk 1 capsule by mouth in the morningnitrofurantoin, macrocrystal-monohydrate, (Macrobid) 100 MG capsule Indications: Urinary tract infection without hematuria, site unspecified Take 1 capsule (100 mg) by mouth in the morning and 1 capsule (100 mg) before bedtime. Do all this for 7 days. 14 capsule 09/11/2024 09/18/2024 ExpiredStart: 02-21-2023 End: 93-71-4359cnpx 1 capsule by mouth every twelve hoursMacrobid 100 mg Cap 100 mg = 1 cap(s), Oral, q12hr, X 5 day(s), # 10 cap(s), Refills(s) 0, Pharmacy: [facility], 166, cm, 02/21/23 13:06:00 EST, Height/Length Dosing, 58.6, kg, 02/21/23 13:06:00 EST, Weight Dosing Start Date: 02/21/23 Stop Date: 02/26/23 Status: Orderedprogesterone (FIRST-PROGESTERONE VGS) 200 mg suppository (2 sources)Start: 03-26-2021 End: 85-57-7196ihntaawpvfaf (FIRST-PROGESTERONE VGS) 200 mg suppository Indications: Hypothyroid [...] Problems Problem ClassificationProblemDateDocumented DateEpisodic/ChronicAbdominal pain (13 sources)Abdominal jfre57-51-2462MgrfbzdoBznsdawvc infection; unspecified site (1 source)Infection due to Escherichia coli; Translations: [Unspecified Escherichia coli [E. coli] as the cause of diseases classified elsewhere]Onset: 99-64-8647XetoexhxQnlryyzp or abnormal glucose tolerance complicating ; childbirth; or the puerperium (18 sources)History of gestational diabetes mellitus; Translations: [Gestational diabetes mellitus]Onset: 05-19-2021 Resolved: 743278-08-3146OrgjbwokYyqgrxbvwtjoj symptoms and ill-defined conditions (4 sources)Dysuria; Translations: [Dysuria]Onset: 34-52-1484CyuqyuauYrvnbtpw; including migraine (13 sources)Migraine without hjxn42-49-5392HqppbflRgibehea; including migraine (6 sources)Headache; Translations: [Nonintractable headache, unspecified chronicity pattern, unspecified headache type]26-92-9549BujlrvzyAbtslfpunv during ; abruptio placenta; placenta previa (4 sources)Low lying placenta; Translations: [Low lying placenta NOS or without hemorrhage, unspecified trimester]Onset: 974831-24-4470RaggexiePkjqnjwsmjp (15 sources)Hemorrhoids; Translations: [Unspecified hemorrhoids]Onset: 38-29-8294KwxahckwLsswrfqvsmlhy and screening for infectious disease (4 sources)Encounter for screening for human papillomavirus (HPV); Translations: [Contact with and (suspected)exposure to infections with a predominantly sexual mode of transmission]Onset: 850851-25-8211VsnasikwZcecjwuwqvec; infection of eye (except that caused by tuberculosis or sexually transmitteddisease) (4 sources)Pvnuzkqqm59-46-1101WcjznczgXozowmvuh disorders (15 sources)Dysmenorrhea; Translations: [Dysmenorrhea, unspecified]Onset: 430284-78-8471AvchskfVnxvm complications of (5 sources)Endocrine, nutritional and metabolic diseases complicating , unspecified trimester; Translations: [ENDOCRN NUTR MET DZ COMP PG UNS TRI]Onset: 20-68-1738RqixoijzEaick complications of (2 sources)Thyroid disease in mother complicating , childbirth AND/OR puerperium; Translations: [Endocrine, nutritional and metabolic diseases complicating , unspecified trimester]78-19-0153JodzoxlkZkzhr complications of (8 sources)Hypothyroidism in ; Translations: [Endocrine, nutritional and metabolic diseases complicating , unspecified trimester]Onset: 198285-12-1778KjrmfqynCcket complications of (3 sources)History of gynecological disorder; Translations: [Supervision of with other poor reproductive or obstetric history, unspecified trimester]Onset: 209336-97-7901WcfmgcijBhujs complications of (2 sources) size does not accord with dates; Translations: [Uterine size- date discrepancy, second trimester]89-58-4805WkmoeelyJordv endocrine disorders (4 sources)Gujusfubgoat00-80-3871IpbordpClcpa eye disorders (4 sources)Eye uoyfvdr64-39-9339QievigojUebdl female genital disorders (4 sources)Lesion of -86-8885PfyvdmygChzsp female genital disorders (1 source)Noninflammatory disorder of vulva; Translations: [Other specified noninflammatory disorders of vulva and perineum]Onset: 68-16-0283VivyixvhAwire female genital disorders (2 sources)Vaginal discharge; Translations: [Other specified noninflammatory disorders of vagina]61-40-9410GrvugyjpWtkcc gastrointestinal disorders (4 sources)Zcrzgfgddxdu18-25-6761ZsvkllciSilbv gastrointestinal disorders (1 source)Digestive system finding; Translations: [Other specified symptoms and signs involving the digestivesystem and abdomen]Onset: 94-98-4507UorrdvhhKdqku gastrointestinal disorders (1 source)Constipation, unspecified; Translations: [Constipation, unspecified] Onset: 68-68-1604BrzdpqmsDvrij inflammatory condition of skin (4 sources)Pruritus ani; Translations: [Pruritus ani]Onset: 59-72-6726Yvxdgega Other lower respiratory disease (13 sources)H/O: respiratory cvukfhf20-84-2305PolvzofqPfxuq nutritional; endocrine; and metabolic disorders (12 sources)Weight rkms31-15-7237QlezepxgZnghn nutritional; endocrine; and metabolic disorders (1 source)Abnormal weight loss; Translations: [Abnormal weight loss]Onset: 07-13-6863KzfzhlajLiwil and delivery including normal (20 sources)Encounter for supervision of normal first , first trimester; Translations: [Encounter for supervision of normal , unspecified, unspecified trimester]Onset: 08-39-6769RzcmhbfyFfycj screening for suspected conditions (not mental disorders or infectious disease) (13 sources)Encounter for screening for malignant neoplasm of cervix; Translations: [Encounter for screening, unspecified]Onset: 12-09-2020 EpisodicResidual codes; unclassified (3 sources)Body mass index 20-24 - normal; Translations: [Body mass index (BMI) 21.0-21.9, adult]Onset: 96-49-8303ZjbjzcukOvqsiiyc codes; unclassified (1 source)Family history of malignant neoplasm of digestive organ; Translations: [Family history of malignantneoplasm of digestive organs]Onset: 11-30-2022 EpisodicResidual codes; unclassified (11 sources)Family history of cancer of -71-5644KiriwfqbCnumkfcl codes; unclassified (4 sources)Family history of autism; Translations: [Family history of other mental and behavioral disorders]Onset: 609703-17-0906FrfigvluUoeishce codes; unclassified (2 sources)Gestation period, 13 weeks; Translations: [13 weeks gestation of ]06-49-8028FrkbckxoZgtngfvg codes; unclassified (15 sources)History of previous intrauterine growth restricted ; Translations: [Personal history of other complications of , childbirth and the puerperium]Onset: 834423-55-2583BoocdhniPpkvlptt codes; unclassified (2 sources)Gestation period, 17 weeks; Translations: [17 weeks gestation of ]81-93-1870JlybbcejJtykauux codes; unclassified (1 source)Gestation period, 20 weeks; Translations: [20 weeks gestation of ]98-45-2020EpiumllrFuchypjh codes; unclassified (7 sources)History of premature rupture of membranes; Translations: [Personal history of other complications of , childbirth and the puerperium]Onset: 599319-05-7314FufphoszZaezgfja codes; unclassified (2 sources)Gestation period, 21 weeks; Translations: [21 weeks gestation of ]37-59-7803ChknpullSvaqgytm codes; unclassified (2 sources)Personal history of other complications of , childbirth and the puerperium; Translations: [Personal history of other complications of , childbirth and the puerperium]Onset: 47-71-9327GsuelvoiAlqfobzd codes; unclassified (1 source)20 weeks gestation of ; Translations: [20 weeks gestation of ]Onset: 16-61-0992HsojzbryQpauhdbl codes; unclassified (2 sources)Gestation period, 25 weeks; Translations: [25 weeks gestation of ]20-98-2252ZjbadyqgGtytuhtx codes; unclassified (2 sources)Gestation period, 28 weeks; Translations: [28 weeks gestation of ]39-54-4960EyjjrhuuPblgepnz codes; unclassified (2 sources)Gestation period, 30 weeks; Translations: [30 weeks gestation of ]20-39-1001OglynvysFworzelt codes; unclassified (2 sources)Gestation period, 32 weeks; Translations: [32 weeks gestation of ]94-48-9551IrdlgfcfPmdctru disorders (20 sources)Hypothyroidism, unspecified; Translations: [Hypothyroidism]Onset: 53-53-3132LylvlhuAzoqzbz disorders (12 sources)Disorder of thyroid, unspecified; Translations: [Disorder of thyroid gland]Onset: 15-93-5492XyqrebtoNwaywvcdrcmo (13 sources)Body mass index 20-24 - ctwzan60-79-8653Unhkcujoblkx (13 sources)Qwe-wutswo92-70fgztoh08-04-2537Uvteumkllwge (5 sources)Pain of knee yiirkd90-81-9183Rxmbjqsxhxlr (8 sources)Patient encounter -17-0024Kxvfmihmwzgd (3 sources)Rectum ifihmui53-21-4252Bldgkydtqilq (8 sources)Finding of sensation of eipayuh73-50-7106Dglqtulvwfcm (1 source)Hx previous FGROnset: 44-01-7559Mfuugbc tract infections (13 sources)Acute cystitis; Translations: [Acute cystitis without hematuria] Onset: 22-99-6368Anytxkef Past or Other Problems Problem ClassificationProblemDateDocumented DateEpisodic/ChronicEarly or threatened labor (6 sources)Premature uterine contraction; Translations: [False labor before 37 completed weeks of gestation, third trimester]Onset: 04-21-2021 Resolved: 714315-86-2018EkqkppozNiwjs complications of (3 sources)Disorder of ; Translations: [Maternal care for other known or suspected poor growth,unspecified trimester, not applicable or unspecified]Onset: 03-03-2021 Resolved: 688214-45-5018FpnanxvnXvddm complications of (3 sources)Short cervical length in ; Translations: [Cervical shortening, third trimester]Onset: 05-19-2021 Resolved: 039648-07-6795RinghrcoPglpr complications of (2 sources)Endocrine, nutritional and metabolic diseases complicating , second trimester; Translations: [Endocrine, nutritional and metabolic diseases complicating , second trimester]Onset: 26-05-7531DilpoygcGkisx female genital disorders (4 sources)Other specified noninflammatory disorders of vagina; Translations: [OTH SPEC NONINFLAMMATORY D/O VAGINA]Onset: 04-81-5375UfpybldrBlkmhapvacnpcc and other problems of amniotic cavity (3 sources) premature rupture of membranes ; Translations: [ premature rupture of membranes, unspecified as to length of time between rupture and onset of labor, unspecified trimester]Onset: 05-30-2021 Resolved: 239914-98-4810Qebhndxg Results Test NameValueInterpretationReference RangeFacilityUrinalysis macro (dipstick) panel (U)on 76-10-2045Bdlmeqrhk, UANegativeNegative - 4(70) +++ mg/dLNOMS HealthcareBlood, UANegativeNegative [...] mg/dLNOMS HealthcareNOMS HealthcareUrinalysis macro (dipstick) panel (U)on 87-45-6268Ldyaupwdq, UA NegativeNegative - 4(70) +++ mg/dLNOMS HealthcareBlood, [...] - 1.03N[facility] Urobilinogen, UA0.20.2 - 12 mg/dLNOSD HealthcareNOMS HealthcareUS OB FOLLOW UP TRANSABDOMINAL APPROACHon 77-76-2855QC OB FOLLOW UP TRANSABDOMINAL APPROACH FINDINGS: A [...] Delivery: 03/23/25 Gestational Age as of 12/10/2024: 64n1aPsiikicoqa macro (dipstick) panel (U)on 26-33-0758Atvrlqouw, UANegativeNegative - 4(70) +++ mg/dLNOMS HealthcareBlood, UANegativeNegative - 50 Cedric/mcLNOMS HealthcareClarity, UAClearNOMS Healthcare Color, UAYellowNOMS HealthcareGlucose, UANegativeNegative - 2000(110) ++++ mg/dL NOMS HealthcareInterpretation and review of laboratory resultsNormalNOSD HealthcareKetones, UANegativeNegative - 160(16) ++++ mg/dLNOSD Healthcare Leukocytes, UANegativeNegative - 500+++ Ayana/mcLNOMS HealthcareNitrite, UA NegativeNegative - PositiveNOMS HealthcarepH, UA7.05 - 9NOMS HealthcareProtein, UANegativeNegative - 2000(20) ++++ mg/dLNOSD HealthcareSpec Grav, UA1.0101 - 1.03NOSD HealthcareUrobilinogen, UA0.20.2 - 12 mg/dLNOMercy Hospital WashingtonNOSD HealthcareGLUCOSE TOLERANCE 3 HOURon 07-75-0644RPAXVMW TOLERANCE 3 HOURHighmg/dL NOM HealthcareComment on above:GLU FAST 89 (<95) Col: 12/12/24 0842 GLU 1HR 178 (<180) Col: 12/12/24 0949 GLU 2HR 156H (<155) Col: 12/12/24 1041 GLU 3HR 103 (<140) Col: 12/12/24 1147 Interpretation and review of laboratory resultsAbnormalNOSD HealthcareCLINISYNC NOM HealthcareALL CBC WITH AUTO DIFFon 16-89-8768YBKJROPPH ABSOLUTE ZBOY6EGWEMercy Hospital WashingtonBasophils/100 WBC (Bld)0.3 %0.2 - 2.0 %NOMS HealthcareEosinophils/100 WBC (Bld)0.5 %Low0.9 - 7.0 %[facility] Medical CenterErythrocyte distribution width (RBC) [Ratio]12.4 %11.0 - 15.0 %NOMLake Regional Health SystemHematocrit (Bld) [Volume fraction]32.4 %Low36.0 - 48.0 %[facility] Medical CenterHemoglobin (Bld) [Mass/Vol]10.8 g/dLLow12.0 - 16.0 g/dLNOMercy Hospital WashingtonIMMATURE GRANULOCYTES ABS AUTO0.03NOMercy Hospital Washington Immature granulocytes/100 WBC (Bld)0.3 %0.0 - 0.5 %[facility] Medical CenterInterpretation and review of laboratory resultsAbnormalJohn J. Pershing VA Medical CenterLYMPHOCYTES ABSOLUTE AUTO1.3NOMercy Hospital WashingtonLymphocytes/100 WBC (Bld)14.4 %Low20.5 - 60.0 %[facility] CenterH (RBC) [Entitic mass]33.2 pg26.7 - 34.0 pgNOMercy Hospital WashingtonMCHC (RBC) [Mass/Vol]33.3 g/dL29.9 - 35.2 g/dLNOSD HealthcareMCV (RBC) [Entitic vol]99.7 fL High81.0 - 99.0 fLNOSD HealthcareMONOCYTES ABSOLUTE AUTO0.4NOM[facility] Healthcare Monocytes/100 WBC (Bld)4.6 %1.7 - 12.0 %NOMS HealthcareNEUTROPHILS ABSOLUTE AUTO 7HighNOSD HealthcareNeutrophils/100 WBC (Bld)79.9 %High43.0 - 75.0 %NOMS HealthcarePlatelet mean volume (Bld) [Entitic vol]10.5 fL9.5 - 13.5 fLNOSD HealthcareTBH EO #0NOMS HealthcareTBH DRM096NYKH HealthcareTBH RBC3.25LowNOMS HealthcareTBH WBC8.8NOSD HealthcareCLINISYNCNOMS HealthcareUrinalysis macro (dipstick) panel (U)on 13-10-8578Bnuskcevg, UANegativeNegative - 4(70) +++ mg/dL NOMS HealthcareBlood, UANegativeNegative - 50 Cedric/mcLNOMS HealthcareClarity, UA ClearNOMS HealthcareColor, UAYellowNOMS HealthcareGlucose, UANegativeNegative - 1999(110) ++++ mg/dLNOMS HealthcareInterpretation and review of laboratory resultsNormalNOSD HealthcareKetones, UANegativeNegative - 160(16) ++++ mg/dLNOMS HealthcareLeukocytes, UANegativeNegative - 500+++ Ayana/mcLNOMS HealthcareNitrite, UANegativeNegative - PositiveNOMS HealthcarepH, UA75 - 9NOMS HealthcareProtein, UANegativeNegative - 2000(20) ++++ mg/dLNOMS HealthcareSpec Grav, UA1.011 - 1.03 NOMS HealthcareUrobilinogen, UA0.20.2 - 12 mg/dLNOSD HealthcareNOSD Healthcare Urinalysis macro (dipstick) panel (U)on 56-69-3146Onqumtvxs, UANegativeNegative - 4(70) +++ mg/dLNOMS HealthcareBlood, UANegativeNegative - 50 Cedric/mcLNOMS HealthcareClarity, UAClearNOMS HealthcareColor, UAYellowNOMS HealthcareGlucose, UAPositiveNegative - 1999(110) ++++ mg/dLNOSD HealthcareInterpretation and review of laboratory resultsAbnormalNOMS HealthcareKetones, UANegativeNegative - 160(16) ++++ mg/dLNOSD HealthcareLeukocytes, UANegativeNegative - 500+++ Ayana/mcL NOM HealthcareNitrite, UANegativeNegative - PositiveNOMS HealthcarepH, UA65 - 9 NOMS HealthcareProtein, UANegativeNegative - 1999(20) ++++ mg/dLNOSD Healthcare Spec Grav, UA1.0151 - 1.03NOSD HealthcareUrobilinogen, UA1.00.2 - 12 mg/dLNOSD HealthcareNOSD HealthcareALL THYROID STIM HORMONEon 41-93-8670VPW Qn2.68 m[IU]/L [facility] Medical CenterCLINISYNCNOMS HealthcareAFP, SERUM, OPEN SPINA BIFIDAon 01-72-4072SEW MOM0.82.[facility] CenterAFP VALUE34.7 ng/mL.[facility] HealthcareCOMMENT: Comment.[facility] Medical CenterComment on above:Alie Moon, Ph.D., [facility] Director References: Available Upon Request. Multiples Of Median Cutoffs For AFP Elevations Murphy 2.5 Black 2.8 IDD 2.0 Twins 4.5 Abbreviation Definitions IDD - Insulin Dep Diabetes OSBR - Open Spina Bifida Risk For further inquiries contact [facility] at [phone]. This test was developed and its performance characteristics determined by Rep. It has not been cleared or approved by the Food and Drug Administration. Performed at: [facility] [address], [place] [id number] [place] Supervisor: Pily Meraz [facility], Phone: [phone] GEST. AGE ON COLLECTION DATE17.3. weeksNOSD HealthcareGESTAT. AGE BASED ONLMP. [facility] HealthcareComment on above:Recalculations are not recommended when gestational dating by LMP and ultrasound are within 10 days. INSULIN DEP DIABETESNo.[facility] HealthcareINTERPRETATIONComment.[facility] Comment on above:Interpretation: Screen Negative This result [...] Customer Services to discuss available options. The [employer] recommends amniocentesis be offered to women age 35 and older. MATERNAL A[age] AT EDD25.1. yrNOSD HealthcareMULTIPLE GESTATIONNo.[facility] Healthcare OSBR RISK 1 [id number].[facility] HealthcareRACECaucasian.[facility] HealthcareRESULTSReport. [facility] HealthcareTEST RESULTS:Negative.[facility] CenterSzxtssshheUAPBCB190. lbsNOSD HealthcarePREGNANCY N N LMP [id number] 2 17 N 1 Y 134 N N N N N White/ CLINISYNCNOMercy Hospital WashingtonUrinalysis macro (dipstick) panel (U)on 10-15-2024 Bilirubin, UANegativeNegative - 4(70) +++ mg/dLNOSD HealthcareBlood, UANegative Negative - 50 Cedric/mcLNOSD HealthcareClarity, UAClearNOSD HealthcareColor, UA YellowNOMS HealthcareGlucose, UANegativeNegative - 2000(110) ++++ mg/dLSPANISH FORK HOSPITAL HealthcareInterpretation and review of laboratory resultsNormalJohn J. [facility] Ketones, UANegativeNegative - 160(16) ++++ mg/dLSPANISH FORK [facility] HealthcareLeukocytes, UA NegativeNegative - 500+++ Ayana/mcLNOSD HealthcareNitrite, UANegativeNegative - PositiveNOSD HealthcarepH, UA65 - 9NOSD HealthcareProtein, UANegativeNegative - 2000(20) ++++ mg/dLNOSD HealthcareSpec Grav, UA1.0151 - 1.03NOSD Healthcare Urobilinogen, UA0.20.2 - 12 mg/dLFreeman Neosho Hospital HealthcareGLUCOSE 1 HOURon 64-24-0423Qfofblm [Mass/Vol]108 mg/dLNINF - 130 mg/dLSPANISH FORK [facility]OS[facility] HealthcareCLINISYNC [facility] Medical CenterALL MISCELLANEOUS TESTon 63-46-2556CGBXLYYWNABDS TESTCOMMENT.[facility] HealthcareComment on above:Test Ordered: [id number] Parvovirus B19, Human, IgG/IgM Parvovirus B19, IgG 0.1 index BN Reference Range: 0.0-0.8 Negative <0.9 Equivocal 0.9 - 1.1 Positive >1.1 Parvovirus B19, IgM 0.1 index Reference Range: 0.0-0.8 Negative <0.9 Equivocal 0.9 - 1.1 Positive >1.1 Performed at: [address] [id number] Spring [place] Supervisor: Darion Moon MD, Phone: [phone] Performed at: [address] [id number] [place] Supervisor: Madi Maloney PhD, Phone: [phone] Parvovirus B19 (Human), IgG, IgM CLINISYNCNOMS HealthcareALL MISCELLANEOUS TESTon 97-20-5480HXQVUNDPQQHUN TEST COMMENT.NOMS HealthcareComment on above:Test Ordered: [id number] Parvovirus B19, Human, IgG/IgM Parvovirus B19, IgG 0.1 index Reference Range: 0.0-0.8 Negative <0.9 Equivocal 0.9 - 1.1 Positive >1.1 Parvovirus B19, IgM 0.1 index Reference Range: 0.0-0.8 Negative <0.9 Equivocal 0.9 - 1.1 Positive >1.1 Performed at: [address] [id number] [place] Supervisor: Darion Moon MD, Phone: [phone] Performed at: [address] [id number] [place] Supervisor: Madi Maloney PhD, Phone: [phone] Parvovirus B19 (Human), IgG, IgM CLINISYNCNOMS HealthcareALL CBC WITH AUTO DIFFon 77-10-2530VPXUKRNLB ABSOLUTE WNAB1VHDX HealthcareBasophils/100 WBC (Bld)0.5 %0.2 - 2.0 %[facility] Eosinophils/100 WBC (Bld)0.5 %Low0.9 - 7.0 %NOMS HealthcareErythrocyte distribution width (RBC) [Ratio]12.3 %11.0 - 15.0 %NOMS HealthcareHematocrit (Bld) [Volume fraction]38.5 %36.0 - 48.0 %NOMS HealthcareIMMATURE GRANULOCYTES ABS AUTO0.02NOSD HealthcareImmature granulocytes/100 WBC (Bld)0.3 %0.0 - 0.5 % [facility] Medical CenterInterpretation and review of laboratory resultsAbnormalNOSD HealthcareLYMPHOCYTES ABSOLUTE AUTO1.6NOMS HealthcareLymphocytes/100 WBC (Bld)21 %20.5 - 60.0 %[facility] CenterH (RBC) [Entitic mass]33.5 pg26.7 - 34.0 pgUniversity Health Truman Medical CenterHC (RBC) [Mass/Vol]35.6 g/xQNorx72.9 - 35.2 g/dLUniversity Health Truman Medical CenterV (RBC) [Entitic vol]94.1 fL81.0 - 99.0 fLJohn J. Pershing VA Medical CenterMONOCYTES ABSOLUTE AUTO 0.4NOMS HealthcareMonocytes/100 WBC (Bld)5.1 %1.7 - 12.0 %[facility] NEUTROPHILS ABSOLUTE AUTO5.6NOMercy Hospital WashingtonNeutrophils/100 WBC (Bld)72.6 %43.0 - 75.0 %[facility] Medical CenterPlatelet mean volume (Bld) [Entitic vol]11.1 fL9.5 - 13.5 fLJohn J. Pershing VA Medical CenterTBH EO #0NOMercy Hospital WashingtonTBH NDJ347AMZBChildren's Mercy Hospital RBC4.09Low [facility] WBC7.8John [facility]. [facility] Medical CenterCLINISYNCCBC and differentialon 19-95-3482Kcguvjwsjf (Bld) [Volume fraction]39 %36 - 46 %[facility] Platelets (Bld) [#/Vol]211 10*3/uL150 - 399 10*3/uLProMedica Health SystemWBC (Bld) [#/Vol]7.8 10*3/mL3.3 - 10.0 10*3/mLSt Johnsbury HospitalMedica [facility] SystemDrug Screen, Urineon 68-85-5530Fwcvfkpzcog/MethamphetamineNegativeProMedica Health System BarbituratesNegativeProMedica Health SystemBenzodiazepinesNegativeProMedica Health SystemCocaine MetaboliteNegativeSt Johnsbury HospitalMedica Health SystemMethadoneNegative ProMedica Health SystemOpiatesNegativeSt Johnsbury HospitalMedica Health SystemOxycodoneNegative Pro[facility] Health SystemPhencyclidineNegativeProMedica Health SystemThc Marijuana, UrineNegativeCleveland Clinic Union HospitalHBV surface Ag IA Qlon 08-21-2024 Hepatitis B Surface AntigenNegativeCleveland Clinic Union HospitalHCV Ab IA Qlon 63-62-4780BTS Ab Ql (S)Non-ReactiveCleveland Clinic Union HospitalHIV 1+2 Ab+HIV1 p24 Ag IA Qlon 44-74-9541URR 1&2 AB/AGNon-ReactiveCleveland Clinic Union HospitalHemoglobin A1con 50-33-4463KqF0z (Bld) [Mass fraction]5.6 %4.0 - 6.0 %[facility] HospitalLaboratory - Hematology and Cell countson 14-18-9208Rbsspbdjsw (Bld) [Mass/Vol]13.7 g/dL12.0 - 16.0 g/dLJohn J. Pershing VA Medical CenterNo Panel Informationon 02-52-2831HGNO HealthcareRubella IGG immune statuson 45-29-9005Xkcupfy immune IgGimmuneCleveland Clinic Union HospitalT. pallidum IgG+IgM IA Ql (S)Ordered By: Nadira Salazar on 75-58-5264CwmwzjkpHvs-ReactiveCleveland Clinic Union HospitalTSHon 52-11-9052Wjjczwi Stimulating (3Rd Generation) Hormone/ Tsh7.721POhioHealth Dublin Methodist HospitalType and screenon 63-23-3390Cwf/Rh(D)PositiveCleveland Clinic Union HospitalHCG ( test) Ql (U)on 15-97-3871Sxdcqqmmuhhqtq and review of laboratory resultsAbnormalJohn J. Pershing VA Medical CenterPreg Test, UrPositiveNegativeFreeman Neosho Hospital HealthcareUS OB TRANSVAGINALon 80-82-2482XN OB TRANSVAGINALEXAM: US OB TRANSVAGINAL HISTORY: Dating. [...] II, MD, PHD at 20-Aug-2024 10:22:40 AM [facility] TeleradiologyNormalNot AvailableComment on above:Order Comment: US OB TRANSVAGINAL No LMP recorded.Urinalysis macro (dipstick) panel (U)on 65-55-4815Jieefxhfh, UA NegativeNegative - 4(70) +++ mg/dLNOMS HealthcareBlood, [...] - 12 mg/dLNOMS HealthcareNOMS HealthcareAmbulatory Visit Summaryon 82-37-8732Mrayxyvbkt Visit SummaryAmbulatory Visit Summary YANA CHURCH :2000 [...] 8:40 AM EDT With: Marta Rivas Where: [facility] [address] [place] [address], [address] [place] [id number] Medications What How Much When Why Instructions [...] you for choosing us for your care. [facility] Medicine Office/Clinic Noteon 19-70-1150Rmhdjq Medicine Office/Clinic NoteFaessex hospital Medicine Office/Clinic Note Chief Complaint Establish [...] anymore, managed with tylenol Social History: Occupation: [employer] Family life: home with and daughter Diet: no restrictions Caffeine: 1 cup coffee/day Exercise: active lifestyle Alcohol use: denies Drug use: denies Smoking status: denies Health Maintenance: Routine labs: thyroid labs 06/2024, declines further labs Pap (21-64yo): 04/2023 Specialists: [employer] Trades Worker: krysta Dentist: krysta OBGYN: Joanna Review of [...] other medications. Recheck TSH/T (more content not included)...[facility] Comment on above:Result Comment: Electronically Signed By: Marta Rivas\.br\Date and Time Signed: 07/09/24 08:35 EDTAmbulatory Visit Summaryon 06-31-3783Vwgjskvgmq Visit SummaryAmbulatory Visit Summary YANA CHURCH :2000 [...] 8:00 AM EDT With: Marta Rivas Where: [facility] [address] [facility], [facility] [place] [address]- Medications What How Much When Why Instructions New amoxicillin-clavulanate (Augmentin 875 mg-125 mg Tab) 1 Tablets By Mouth Every 12 hours Acute sinusitis Duration: 10 Days Pickup at [facility] Unchanged levothyroxine (Synthroid 100 mcg Tab) 1 Tablets By Mouth Every day Pharmacy Information [facility]: [address] [place], [place] [id number] [phone] Allergies No Known Allergies Problems Ongoing - [...] you for choosing us for your care. [facility] Medicine Office/Clinic Noteon 57-23-1169Hmusmb Medicine Office/Clinic NoteFaessex hospital Medicine Office/Clinic Note Chief Complaint possible [...] for 10 day(s), 20 tab(s), Refill(s) 0, [facility], 166, cm, 07/05/24 15:34:00 EDT, Height/Length [...] When Contact Information Julienne BARTLETT, Ham Montano, [facility], [address], [address] [phone] Additional Instructions: as scheduled with Marta Patient Education Sinus Infection, Adult, Wsgk-if-Cbfx How to Perform a Sinus Rinse, Glbe-kj-Hgee Problem List/Past Medical History Ongoing Acute sinusitis [...] poliovirus vaccine, inactivated (more content not included)...Normal [facility]. [facility] HospitalComment on above:Result Comment: Electronically Signed By: Julienne BARTLETT, Ham Montano\.br\Date and Time Signed: 07/05/24 16:06 EDT CHEMISTRYOrdered By: SYSTEM SYSTEM on 60-86-9235Gbbo T4 [Mass/Vol]0.82 ng/dL Normal0.58 - 1.64 ng/dLRemisol ChemTSH Qn3.09 m[IU]/LNormal0.34 - 5.60 mcIU/mL Remisol ChemFree T4on 54-11-5237Tahh T4 [Mass/Vol]0.82 ng/dLNormal0.58-1.64 [address] [facility] HospitalComment on above:Performed By: #### [id number] #### [facility] [address] [place], [place] [address]UHRuu 65-29-2884CKZ Qn3.09 m[IU]/LNormal0.34-5.60St. Francis HospitalComment on above:Performed By: #### [id number] #### [facility] [address] [place], [place] [address]BSB EXTRACTION AND HOLDon 46-63-0217RmtfgpWndnoi Puregene Reagents from QiagenInvalid Interpretation [facility] on above:Order Comment: Release to patient->AutomaticNucleic Acid Concentration 273.2 ng/uLInvalid Interpretation [facility] on above: Order Comment: Release to patient->AutomaticNucleic Acid Purity1.90Invalid Interpretation Code1.70-2.10[facility] on above:Order Comment: Release to patient->AutomaticSignature .Invalid Interpretation [facility] on above:Order Comment: Release to patient->AutomaticStorage and Special InstructionsInvalid Interpretation [facility] on above:Order Comment: Release to patient->AutomaticResult Comment: The extracted DNA is stored in the [facility] at -70 degrees C and is being held for future testing. If there are any questions regarding this sample, please contact the [facility] at [phone].Total DNA Yield82.0 ugInvalid Interpretation [facility] on above:Order Comment: Release to patient->AutomaticTotal Volume HJH603 ulInvalid Interpretation Code [facility] on above:Order Comment: Release to patient->AutomaticIGP,APTIMA HPV,AGE GDLNon 27-41-3486AUR GDLN ACOG TESTINGNote. NOMS HealthcareComment on above:TESTS RESULT FLAG UNITS REF RANGE LAB Clinician Provided Cytology Information Source.............Cervix;Endocervix No. of containers..01 ThinPrep Vial Age Maicolo ACOG Francheska... FLAG LEGEND: L-Low Normal,H-High Normal,LL-Alert Low,HH-Alert High <-Panic Low,>-Panic High,A-Abnormal,AA-Critical Abnormal Performed at: 01 = Lab[address] [place] [address] Sugey Torres MD, IGP, RFX APTIMA HPV ASCUNote.[facility] HealthcareComment on above:TESTS RESULT FLAG UNITS REF RANGE LAB DIAGNOSIS: 02 NEGATIVE FOR INTRAEPITHELIAL LESION OR MALIGNANCY. Specimen adequacy: 02 Satisfactory for evaluation. Endocervical and/or squamous metaplastic cells (endocervical component) are present. Performed by: 02 Yudy Rhoades, Division Service Manager ([facility]) . 02 Note: Note 02 The Pap [...] <-Panic Low,>-Panic High,A-Abnormal,AA-Critical Abnormal Performed at: [address] [address] Sugey Torres MD, Performed at: = - [facility] [address] [id number] [place] Supervisor: Sugey Torres MD, Phone: [phone] Performed at: - [address] [id number] [place] Supervisor: Sugey Torres MD, Phone: [phone] BRUSH-SPATULA CERVIX ENDOCERVIX CLINISYNCNOMS HealthcareCoding Summary.on 60-60-0971Bdwsjo Summary. ERBSLbky15OCr2wFw+PGhlYWQ+SM0UDANlD04vlEXiiD0uA1HOZMhVQdylRTWZBJhFOuFesjAaNX7fuQ NjZXJu [file] S09nwFIpv3K2O (more content not included)...NormalSt. Francis Hospital CHEMISTRYOrdered By: SYSTEM SYSTEM on 21-27-0503Haly T4 [Mass/Vol]0.92 ng/dL Normal0.58 - 1.64 ng/dLRemisol [facility] Qn3.37 m[IU]/LNormal0.34 - 5.60 mcIU/mL Remisol ChemConsent for Treatmenton 77-81-2756Pbunzwq for Treatment [id number]#1.00TIFFNormalSt. Francis HospitalFree T4on 34-85-2833Bugf T4 [Mass/Vol]0.92 ng/dLNormal0.58-1.64St. Francis HospitalComment on above:Performed By: #### [id number] #### Barry [facility] [address] [place] [address]DCBhd 37-89-9458ZQC Qn3.37 m[IU]/LNormal0.34-5.60St. Francis HospitalComment on above:Performed By: #### [id number] #### Jhonny [facility] [address] [place], [place] [address]Fceblrxwqx Visit Summaryon 52-95-8522Ithiihinkm Visit Summary YANA CHURCH :2000 Visit Date:08/08/2023 [...] you for choosing us for your care. [facility] Medicine Office/Clinic Noteon 73-64-3540Upkqvy Medicine Office/Clinic NoteChief Complaint f/u for hypothyroid [...] Unspecified hemorrhoids) Resolved, no additional complaints. [facility] colonoscopy/diagnostic colonoscopy due to [...] with voice recognition artificial intelligence software, specifically [employer]ro[employer], Doy[employer] and or [employer]. Substitutions may have occurred due to the [...] Social History Alcohol Curren (more content not included)...[facility] SpringfieldComment on above:Result Comment: Electronically Signed By: Ya [...] Follow these instructions at home: ? Take jlnf-wpz-phwcwyb and prescription medicines only as told by [...] provider. Document Revised: 03/09/2022 Document Reviewed: 03/09/2022 [employer] Patient Education ? 2022 [employer]. Gastroenterology Hemorrhoids Hemorrhoids are swollen veins in and around the rectum or anus. There are two types of hemorrhoids: ? Internal hemorrhoids. These occur in the veins that are just inside the rectum. They may poke through to the outside and become irritated and painful. ? External hemorrhoids. These occur in the veins that are (more content not included)...NormalSt. Francis HospitalPAP 270728sb 05-20-2023. trachomatis rRNA FRANSISCO+probe Ql (Cvx)NegativeInvalid Interpretation CodeNegative St. Francis HospitalComment on above:Performed By: #### [id number] ####[facility] Mgpdyfuxpf933 [facility] hospital[facility] [id number] Cytology report Cyto stain Doc (Cvx/Vag)NoteInvalid Interpretation [facility] HealthComment on above:Result Comment: TESTS RESULT FLAG UNITS REF RANGE LAB Clinician Provided Cytology Information Source.............Cervix No. of containers..01 ThinPrep Vial DIAGNOSIS: 01 NEGATIVE FOR INTRAEPITHELIAL LESION OR MALIGNANCY. Specimen adequacy: 01 Satisfactory for evaluation. Endocervical and/or squamous metaplastic cells (endocervical component) are present. Performed by: 01 Erum Mckenzie, Division Service Manager ([facility]) . 01 Note: Note 01 The Pap [...] <-Panic Low,>-Panic High,A-Abnormal,AA-Critical Abnormal Performed at: [address] [address] Sugey Torres MD, Hpckxcduf By: #### [id number] ###Tunde [facility] [address]ug[address], [id number] 16+18+31+33+35+39+45+51+52+56+58+59+66+68 DNA Probe+sig amp Ql (Cvx)Negative Invalid Interpretation CodeNegativeFisher Johns Hopkins HospitalComment on above: Result Comment: This nucleic acid amplification test detects fourteen high-risk HPV types (16,18,31,33,35,39,45,51,52,56,58,59,66,68) without differentiation.Performed By: #### [id number] ####[facility] Zrnkmqkoah943 [facility], MK[address]X. gonorrhoeae rRNA FRANSISCO+probe Ql (Cvx) NegativeInvalid Interpretation CodeNegCleveland Clinic Fairview HospitalComment on above:Performed By: #### [id number] ####[facility] Uuasqqeofn331 [facility] [id number]. vaginalis rRNA FRANSISCO+probe Ql (Unsp spec)NegativeInvalid Interpretation CodeNegativeSt. Francis Hospital Comment on above:Result Comment: Performed at: [facility] [address] [place], [place] [id number] MD Brian Mayes Performed at: =G [facility] [place] [address] [place], [place] [id number] MD Brian MayesPerformed By: #### [id number] ####[facility] [address] [place] [address] SC117[address]Apefyr Medicine Office/Clinic Noteon 07-98-2459Vzramp Medicine Office/Clinic NoteChief Complaint Pap, f/u UTI [...] exam was performed without the assistance of nurses medical assistants phlebotomists as witness Pelvic Exam: Vulva: normal appearance, [...] up every 3-5 years based on results INTERIOR SPECIALIST referral if needed for further testing or [...] placed F/u 6 months (more content not included)...NormalSt. Francis Hospital Comment on above:Result Comment: Electronically Signed By: Ya Wang\.irvin\Date and Time Signed: 05/16/23 15:38 ESTPAP [id number] 05-16-2023 Gynecological Body SiteCERVIXNormalSt. Francis HospitalComment on above: Performed By: #### [id number] ####Jhonny [facility] [address] HQ[address]Rlfbses Educationon 96-44-8272Vfkksoa Education Obstetrics and Gynecology Pap Test Why [...] including vitamins, herbs, eye drops, creams, and brxn-cot-amgjkfc medicines. ? Any bleeding problems you have. [...] provider. Document Revised: 06/05/2021 Document Reviewed: 06/05/2021 [employer] Patient Education ? 2022 [employer]. Oncology Cancer Screening for Women A cancer [...] to asbestos. How i (more content not included)...NormalSt. Francis HospitalConsent for Treatmenton 00-55-4046Gchysxe for Treatment [id number]#1.00TIFFNormalSt. Francis HospitalUA With Cult Reflexon 61-93-4631Czvrjagtb Ql (U)NegativeNormalNegative St. Francis HospitalComment on above:Performed By: #### [id number] ####[facility] [address] [place] [address] Clarity (U)CLEARNormalClearSt. Francis HospitalComment on above:Performed By: #### [id number] ####[place] [address] [place], [place] [address]Wwpks (U)YELLOWNormalYellowSt. Francis Hospital Comment on above:Performed By: #### [id number] ####[facility] [address] [place], [place] [address]Xtukrfxlpd cells.squamous LM.HPF (Urine sed) [#/Area]6-1Eurojw2-1Ovhswy [facility] Hopkins HospitalComment on above: Performed By: #### [id number] ####[facility] [address] [place], [place] [address]Retkhbb Test strip (U) [Mass/Vol]NegativeNormal NegativeSt. Francis HospitalComment on above:Performed By: #### [id number] ####[facility] [address] [place] [address] Hemoglobin Ql (U)NegativeNormalNegativeSt. Francis HospitalComment on above:Performed By: #### [id number] ####[facility] F[address]clogfjg[address] [place], [place] [address]Xdhnfoy (U) [Mass/Vol]NegativeNormalNegCleveland Clinic Fairview HospitalComment on above:Performed By: #### [id number] ####[address] [address] [place].plasma/[place].RBC (Bld) [Mass ratio]7-7Mdincz1-8Stwxrl Johns Hopkins HospitalComment on above:Performed By: #### [id number] ####[address] [address]Rrrropa Ql (U)NegativeNormal NegativeSt. Francis HospitalComment on above:Performed By: #### [id number] ####[address] [address]wM (U)6.0 [pH]Invalid Interpretation Code5.0-9.0St. Francis HospitalComment on above:Performed By: #### [id number] ####[address] [address]Hmnvekc (U) [Mass/Vol]NegativeNormal NegativeSt. Francis HospitalComment on above:Performed By: #### [id number] ####[address] [address] Specific gravity (U) [Rel density]>=1.030Invalid Interpretation Code1.005-1.030 St[facility] Francis HospitalComment on above:Performed By: #### [id number] ####[address] [address]Dmad of Urine collection methodClean CatchNormalSt. Francis HospitalComment on above:Performed By: #### [id number] ####[address] [address]Mprkpndztnwo Qn (U)0.2 {Mehdi'U}/dLNormal0.0-1.0 St[address] Francis HospitalComment on above:Performed By: #### [id number] ####[address] [address]UEP Auto Ql (U)NegativeNormalNegativeSt. Francis HospitalComment on above: Performed By: #### [id number] ####[address] [place], [place] [address]LYW LM.HPF (Urine sed) [#/Area]3-9Hsdlbn1-6Rchinl [facility] HospitalComment on above:Performed By: #### [id number] ####Jhonny [facility] [address] [place], [place] [address]LIVWZMGPTR Ordered By: Alphonso Wang on 17-03-3475Risfusgad Ql (U)Negative (03/24/23 11:15 AM)NormalNegativeINTEGRIS [facility] [place] UA Auto SSClarity (U)Clear (03/24/23 11:15 AM)NormalClearFALLIANCEHEALTH SEMINOLE – [facility] UA Auto SSColor (U)Yellow (03/24/23 11:15 AM)NormalYellowINTEGRIS [facility] [place] UA Auto SSEpithelial cells.squamous LM.HPF (Urine sed) [#/Area]0-2 /HPFNormal0-2/HPFINTEGRIS [facility] [place] UA Auto SSGlucose Test strip (U) [Mass/Vol]Negative (03/24/23 11:15 AM)NormalNegativeINTEGRIS [facility] [place] UA Auto SSHemoglobin Ql (U)Negative (03/24/23 11:15 AM)NormalNegativeINTEGRIS [facility] [place] UA Auto SSKetones (U) [Mass/Vol]Negative (03/24/23 11:15 AM)NormalNegativeINTEGRIS [facility] [place] UA Auto SSLithium.plasma/Tavistock.RBC (Bld) [Mass ratio]0-3 /HPFNormal0-3/HPFINTEGRIS COMM[facility]ITY [facility] [place] UA Auto SSNitrite Ql (U)Negative (03/24/23 11:15 AM)NormalNegativeINTEGRIS [facility] [place] UA Auto SSpH (U)6.0 *NA* (03/24/23 11:15 AM)Invalid Interpretation Code5.0 - 9.0IN[facility] [place] UA Auto SSProtein (U) [Mass/Vol]Negative (03/24/23 11:15 AM)NormalNegativeINTEGRIS [facility] [place] UA Auto SSSpecific gravity (U) [Rel density] >=1.030 *NA* (03/24/23 11:15 AM)Invalid Interpretation Code1.005 - 1.030IN[facility] [place] UA Auto SSUA Spec DescClean Catch (03/24/23 11:15 AM)NormalINTEGRIS COMM[facility]ITY [facility] [place] UA Auto SSUrobilinogen Qn (U)0.8909123 {Mehdi'U}/dLNormal0.0 - 1.0 EU/dLINTEGRIS COMM[facility]ITY [facility] [place] UA Auto SSWBC Auto Ql (U)Negative (03/24/23 11:15 AM)NormalNegativeINTEGRIS [facility] [place] UA Auto SSWBC LM.HPF (Urine sed) [#/Area]0-5 /HPFNormal0-5/HPFINTEGRIS COMM[facility]ITY [facility] [place] UA Auto SST3 Freeon 65-80-2645Vymh T3 [Mass/Vol]2.9 pg/mL Invalid Interpretation Code2.0-4.4Fisher Johns Hopkins HospitalComment on above: Result Comment: Performed at: [facility] [address] [id number] PhD Haider BarrazaPerformed By: #### [id number], [id number] ####[facility] [address] [place], [place] [address]HE Retroperitoneal Completeon 18-04-6537ZJ Retroperitoneal CompleteExam Date/Time: 03/22/2023 09:49 EST Reason [...] Taylor MD Transcribed by: RAZIA Technologist: Hussain Johns Hopkins HospitalCHEMISTRY Ordered By: SYSTEM SYSTEM on 21-43-9689Yyam T4 [Mass/Vol]1.10 ng/dLNormal0.58 - 1.64 ng/dLRemisol ChemTSH Qn0.90 m[IU]/LNormal0.34 - 5.60 mcIU/mLRemisol Chem Consent for Treatmenton 58-59-9539Opympgd for Treatment [id number]#1.00TIFFKettering Health SpringfieldFree T4on 77-66-7503Bphx T4 [Mass/Vol]1.10 ng/dLNormal0.58-1.64St. Francis HospitalComment on above:Performed By: #### [id number], [id number], [id number] ####[facility] [address] [place], [place] [address]QRCzx 96-65-3246PLG Qn0.90 m[IU]/LNormal0.34-5.60St. Francis HospitalComment on above:Performed By: #### [id number], [id number], [id number] ####[facility] [facility] [address] [place] [address] 37424G Urineon [id number] identified Cx Nom (U)Microbiology PROCEDURE: Urine Culture [...] Locations R1: This test was performed at: [facility], [address] [place] [address], [id number] [place] [address], LnqalcRhrlzfKettering Health SpringfieldComment on above:Performed By: #### [id number] ####[facility] Ukwgdlbwya[address] Ashtonst[address] luke[facility] hospitalamericoCAP[place], [place] [address]Qlmbrw Medicine Office/Clinic Noteon 77-96-4419Bxyphv Medicine Office/Clinic NoteChief Complaint 2 wk f/u [...] due to her gallbladder. 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 She is able to schedule [...] office today shows: Negat (more content not included)...[facility] SpringfieldComment on above:Result Comment: Electronically Signed By: Ya Wang\.br\Date and Time Signed: 03/11/23 06:06 EST\.br\Electronically Co-Signed By: Annetta Blackburn\.br\Date and Time Co-Signed: 03/09/23 12:22 ESTAmbulatory Visit Summaryon [id number] Visit Summary YANA CHURCH :2000 Visit Date:03/09/2023 Ambulatory Visit Instructions Your Diagnosis BMI 21.0-21.9, adult Feeling of incomplete bladder emptying Other cystitis with hematuria Hypothyroidism Tests Performed Urnls Dip Stick Auto w/o Microscopy POC 09547 Your Care Team Attending Physician - Ya [...] 10:00 AM EDT With: Ya Wang Where: [facility] Primary CareNormalRecurrent UTI (urinary tract infection), pp_set_radiology_subspecialty, [facility]\.br\ Medicati ons\.br\ What How Much When Why Instructions\.br\ New cephalexin (Keflex 500 mg Cap) 1 Capsules By Mouth 4 times a day Feeling of incomplete bladder emptying Recurrent UTI (urinary tract infection) Duration: 7 Days Pickup at [facility]\.br\ New phenazopyridine (Pyridium 200 mg Tab) 1 Tablets By Mouth 3 times a day Feeling of incomplete bladder emptying Recurrent UTI (urinary tract infection) Duration: 3 Days Pickup at [facility]\.br\ Unchanged levothyroxine (Synthroid 112 mcg Tab) [...] instructions Prior to colonoscopy. \.br\ Pharmacy Information\.br\ [facility]: [address], [place] [id number] [phone]\.br\ Test Results\.br\ Urnls Dip Stick Auto w/o Microscopy POC 11704 (03/09/2023)\.br\ Bilirubin Urine Dipstick - Negative\.br\ Blood Urine Dipstick - Trace-intact\.br\ Glucose Urine Dipstick - Negative\.br\ Ketones UrineDipstick - Negative\.br\ Leukocytes Urine Dipstick - Trace\.br\ Nitrite Urine Dipstick - Negative\.br\ Protein Urine Dipstick - Negative\.br\ Specific Truchas Urine Dipstick - 1.020\.br\ Urine Appearance Urine [...] including vitamins, herbs, eye drops, creams, and ynav-nxc-jaxpadj medicines.\.br\ ? \.br\ Whether you are or [...] nerves are communicating with your muscles.\.br\ What [facility] HospitalPatient Educationon 85-09-2991Cpaltpn Education Endocrinology Hypothyroidism Hypothyroidism is when the [...] Follow these instructions at home: ? Take bdfb-lry-skzrlps and prescription medicines only as told by [...] provider. Document Revised: 03/09/2022 Document Reviewed: 03/09/2022 [employer] Patient Education ? 2022 [employer]ure. Obstetrics and Gynecology Urinary Tract Infection, Adult A urinary tract infection (UTI) is an infection of any part of the urinary tract. The urinary tractincludes the kidneys, ureters, bladder, and urethra. These organs make, store, and get rid of urinein the body. An upper UTI affects the ureters and kidneys. A lower UTI affects the bl (more content not included)...[facility] SpringfieldPhysician Referralon 53-30-8962Ecyzapavn [id number]#1.00TIFF [facility] SpringfieldProvider Letteron [id number] Letter March 02, [address]CH [address] [place] [id number] : [address] Clay Waters is know on your insurance & we are able to schedule your EGD & Colonoscopy. Please call us at [phone] at your [facility] convenience to schedule your procedure. Thank you for your prompt attention to this matter. Sincerely, [facility] Reminders From: Erum Gold To: [facility] - Reminders/Recalls; Sent: 11/30/2022 12:34:03 EDT Show up: 11/30/2022 12:34:00 EDT Subject: Ambulatory Reminder [employer] Reminder/Recall Call pt and scheduled EGD and Colonoscopy with Dr. Williamson once [employer] is approved. From: Rusty Alfred ([facility] [...] letter to patient to call [facility] to [facility] Urineon [id number] identified Cx Nom (U)Microbiology PROCEDURE: Urine Culture [...] Locations R1: This test was performed at: [facility], [address] [place] [address], [facility] , , RsyylyPtvrztKettering Health SpringfieldComment on above:Performed By: #### [id number] ####[facility] [address] [place] [address] Medicine Office/Clinic Noteon 12-87-3019Tgywwg Medicine Office/Clinic NoteChief Complaint UTI symptoms HPI [...] color was orange in appearance due to eael-lyk-yvmcgzh meds she was taking, normal urobilinogenpH 5.5 [...] day(s), # 10 cap(s), Refills(s) 0, Pharmacy: [facility], 166, cm, 02/21/23 13:06:00 EST, Height/Length Dosing, 58.6, kg, 02/21/23 13:06:00 EST, Weight Dosing phenazopyridine, 200 mg = 1 tab(s), Oral, TID, X 3 day(s), # 9 tab(s), Refills(s) 0, Pharmacy: [facility], 166, cm, 02/21/23 13:06:00 EST, Height/Length Dosing, 58.6, kg, 02/21/23 13:06:00 EST, Weight Dosing Urine Culture Urnls Dip Stick Auto w/o Microscopy POC 46773 2. Acute cystitis (N30.00: Acute cystitis without hematuria) #1 3. Constipation in female (K59.00: Constipation, unspecified) improving. occasional Colace OTC and Miralax 4. Hemorrhoids (K64.9: Unspecified hemorrhoids) improving, stable 5. Hypothyroidism (E03.9: Hypothyroidism, unspecified) Chronic Stable with 112 mcg daily of Synthroid _ control Weight is stable Asymptomatic- noteable tachycardia today Du (more content not included)...[facility] SpringfieldComment on above:Result Comment: Electronically Signed By: Ya [...] these instructions at home: Medicines ? Take wseq-kta-uxyepib and prescription medicines only as told by [...] provider. Document Revised: 10/17/2020 Document Reviewed: 10/17/2020 [employer] Patient Education ? 2022 [employer].[facility] Ambulatory Visit Summaryon 13-99-8732Lwxssggiqs Visit Summary LILIANAYANA MONTENEGRO :2000 Visit Date:11/30/2022 [...] 1:00 PM EST With: Ya Wang [facility] Gastroenterology Office/Clinic Noteon 61-82-7716Ljmymolpvkcmdgil Office/Clinic NoteChief Complaint constipation HPI Staff Patient [...] Refill(s) 0, Prior to colonoscopy., [id number], 166, cm, 11/30/22 12:12:00 EDT, Height/Length Dosing, [...] rhinitis Hypoglycemia Hypothyroidism Left (more content not included)...[facility] SpringfieldComment on above:Result Comment: Electronically Signed By: Daniel Gray CNP\.br\Date and Time Signed: 11/30/22 12:32 EDTPatient Educationon 55-00-5716Nwwcqks EducationGastroenterology High-Fiber Eating Plan Fiber, also called [...] Bulgur wheat. Millet. Quinoa. Bran muffins. Popcorn. [place]ewksbury wafer crackers. Meats and other proteins Pax beans, kidney beans, and díaz beans. Soybeans. [...] Cream cheese. Sour cream. Fats and oils Hanahan. Beverages Soft drinks. Other foods Cakes and [...] care provider. Document Revised: (more content not included)...[facility] SpringfieldPre-Certification Formon 02-07-8666Jdo-Certification Form [id number]#1.00CD:127NormalSt. Francis HospitalFaessex hospital Medicine Office/Clinic Noteon 31-00-6385Dryums Medicine Office/Clinic NoteChief Complaint pt here for [...] visit we encourage proper diet and exercise bgbm-sbr-sxggwfy MiraLAX or Colace with Preparation H niys-jnz-ygdpjdf, bleeding has stopped, blood noted on toilet [...] Rectal exam was performed, I did offer hog scalder but patient declined, external anus is normal [...] length of time on toilet, sitz bath's, wxfg-viv-omexakr medications and suppositories and creams Hydrocortisone lidocaine with applicator gel ordered today to use twice daily Referral for GI referral placed today Ordered: hydrocortisone-lidocaine topical, 1 carmen, Rectal, BID, 60 EA, Refill(s) 1, [facility], 166, cm, 11/11/22 9:28:00 EDT, Height/Length Dosing, 59.4, kg, 11/11/22 9:28:00 EDT, Weight Dosing [facility] Internal Ambulatory Referral 2. [...] exercise. Orders: azelastine ophthalmic, (more content not included)...[facility] SpringfieldComment on above:Result Comment: Electronically Signed By: Ya Wang\.br\Date and Time Signed: 11/11/22 09:53 EDTPatient Educationon 61-57-6606Jrsnrwo EducationHigh-Fiber Diet Fiber, also called dietary fiber, [...] serving. ? Talk with a diet and technical information specialist (dietitian) if you have questions about [...] Bulgur wheat. Millet. Quinoa. Bran muffins. Popcorn. Tewksbury wafer crackers. Meats and other proteins Pax, kidney, and díaz beans. Soybeans. Split peas. [...] Cream cheese. Sour cream. Fats and oils Hanahan. Beverages Soft drinks. Other foods Cakes and [...] 03/07/2006 Document Revised: 01/09/2018 Document Reviewed: 01/09/2018 [employer] Patient Education ? 2019 L[employer] Assure. Gastroenterology H (more content not included)...[facility] SpringfieldAmbulatory Visit Summaryon 75-53-9336Jsoyjkdzqh Visit Summary YANA CHURCH :2000 Visit Date:10/08/2022 [...] f/u for hypothyroid, weight loss Where: [address] [facility], [facility] [address] [address]- Business (1) You Need to Complete the Following Anti-thyroid Abys, Blood, Routine collect, 10/08/22, Order for future visit, Lab Collect, Weight lossInvalid Interpretation CodeHypothyroidismSt. Francis HospitalAuto Diffon 82-36-6435Ydqvsaxvb/100 WBC (Bld)1.1 %Normal0.0-2.0 St[facility] Francis HospitalComment on above:Order Comment: Order Added by Discern Expert.Performed By: #### [id number], 23145280, 43700316, 8185202, 7705599 ####[facility] [address] [place] [address] Basophils/Leukocytes Auto (Bld) [Pure # fraction]0.1 E9/LNormal0.0-0.2FSumma Health Wadsworth - Rittman Medical CenterComment on above:Order Comment: Order Added by Discern Expert.Performed By: #### 1904114, 32605919, 44023044, 5797278, 4878355 ####[facility] [address] [place] [address] Eosinophils/100 WBC (Bld)1.2 %Normal0.0-8.0St. Francis HospitalComment on above:Order Comment: Order Added by Discern Expert.Performed By: #### 3301187, 41108489, 84400755, 6733670, 6607895 ####[facility] [address] [place] [address]Efsdupkllpb/Leukocytes Auto (Bld) [Pure # fraction]0.1 E9/LNormal0.0-0.5FSumma Health Wadsworth - Rittman Medical CenterComment on above: Order Comment: Order Added by Discern Expert.Performed By: #### 7249036, 50987044, 08726359, 6688862, 8448796 ####[facility] [address] [place] [address]Xwvzfqpebvx/100 WBC (Bld)41.0 %Normal 14.0-50.0St. Francis HospitalComment on above:Order Comment: Order Added by Discern Expert.Performed By: #### 8021460, 08475740, 96369235, 5237088, 7604198 ####[address] [address]Aduxbnvylnz/Leukocytes Auto (Bld) [Pure # fraction]2.3 E9/LNormal1.0-4.0 St[facility] Francis HospitalComment on above:Order Comment: Order Added by Discern Expert.Performed By: #### 5415027, 83413127, 70618645, 0814701, 3475044 ####[address] [address] Monocytes/100 WBC (Bld)5.8 %Normal4.0-14.0St. Francis HospitalComment on above:Order Comment: Order Added by Discern Expert.Performed By: #### 1083449, 50979633, 55819685, 6833467, 8436023 ####[facility] [address] [place] [address]Lwhgdjjwl/Leukocytes Auto (Bld) [Pure # fraction]0.3 E9/LNormal0.2-1.0St. Francis HospitalComment on above:Order Comment: Order Added by Discern Expert.Performed By: #### 4038947, 03970779, 87517753, 7109606, 9068403 ####[address] [address]Xadikkhnlti/100 WBC (Bld)50.9 %Ijdgll03.0-75.0 [facility] Francis HospitalComment on above:Order Comment: Order Added by Discern Expert.Performed By: #### 0698771, 26005717, 94562170, 9334201, 3103281 ####[address] [address] Neutrophils/Leukocytes Auto (Bld) [Pure # fraction]2.8 E9/LNormal2.0-7.5FSumma Health Wadsworth - Rittman Medical CenterComment on above:Order Comment: Order Added by Discern Expert.Performed By: #### 8474318, 07237622, 65880508, 3358906, 8863448 ####[address] [address]LZE w/ Auto Diffon 94-46-9984Bhargdlkmak distribution width (RBC) [Ratio]12.6 % Owidyn56.9-14.2FSumma Health Wadsworth - Rittman Medical CenterComment on above:Performed By: #### 7209665, 41210767, 79400920, 4808942, 6789767 ####[address] [address]Lgebczcajo (Bld) [Volume fraction] 40.4 %Bnfkuy62.0-46.0St. Francis HospitalComment on above:Performed By: #### 1608342, 67022822, 75297127, 6897091, 3813600 ####[address] [address]Gqiludmkue (Bld) [Mass/Vol] 14.1 g/vFXicsjw05.0-16.0St. Francis HospitalComment on above:Performed By: #### 3637815, 16985430, 42636970, 7840922, 5057462 ####[address] [address]IZR (RBC) [Entitic mass]32.1 ocQtauyv09.0-34.0St. Francis HospitalComment on above:Performed By: #### 5993776, 15864026, 96789342, 0606724, 0500098 ####[address] [address]GTVW (RBC) [Mass/Vol]34.8 g/dLNormal 31.4-36.0St. Francis HospitalComment on above:Performed By: #### 1533428, 83538955, 51722358, 9587856, 0628692 ####[facility] [address] [place] [address]UWN (RBC) [Entitic vol]92.1 fLNormal 80.0-100.0St. Francis HospitalComment on above:Performed By: #### 0694583, 46112887, 47650639, 3802640, 3153882 ####[address] [address]Qrffkcdu mean volume (Bld) [Entitic vol]9.1 fLNormal6.4-10.8St. Francis HospitalComment on above:Performed By: #### 8732049, 25807922, 83518695, 4453889, 4367095 ####[address] [address]Oxbyawjgh (Bld) [#/Vol]238.0 E9/CJhautg305.0-500.0St. Francis HospitalComment on above:Performed By: #### 0737943, 56936023, 14726256, 0939800, 9341800 ####[address] [address]KAD (Bld) [#/Vol]4.4 E12/L Normal4.3-5.9St. Francis HospitalComment on above:Performed By: #### 3946442, 56011345, 38995572, 6060459, 6164117 ####[address] [address]KWU corrected for nucl RBC Auto (Bld) [#/Vol]5.6 E9/LNormal4.0-11.0St. Francis HospitalComment on above: Performed By: #### 6977742, 09837694, 96416836, 1418653, 9574587 ####[facility] [address] [place], [place] [address]ASXxa 10-08-2022 Albumin [Mass/Vol]4.7 g/dLNormal3.3-5.0St. Francis HospitalComment on above:Performed By: #### 8494915, 48398693, 99095313, 1538432, 1640048 ####[facility] [address] [place] [address] Albumin/Globulin (S) [Mass conc ratio]1.1Sbhlul0.1-2.2FSumma Health Wadsworth - Rittman Medical CenterComment on above:Performed By: #### 1302152, 96397900, 42568812, 7676486, 7319152 ####[facility] [address] [place] [address]GUT [Catalytic activity/Vol]42 Int._Unit/EGtejux70-37IqgiuwSt. Francis HospitalComment on above:Performed By: #### 2168966, 48874011, 44567094, 9545637, 6751237 ####[facility] [address] [place], [place] [address]KJK No additional P-5'-P [Catalytic activity/Vol]15 Int._Unit/LNormal6-46 [facility] HospitalComment on above:Performed By: #### 7256010, 72599316, 38790714, 6044627, 7966361 ####[facility] [address] [place], [place] [address]Vxurl gap [Moles/Vol]13 mmol/LNormal6-16 [facility] HospitalComment on above:Performed By: #### 7830962, 10095646, 98228274, 4568005, 1657394 ####[facility] [place], [place] [address]EAT [Catalytic activity/Vol]22 Int._Unit/LNormal5-43Fisher [facility]oc Medical CenterComment on above:Performed By: #### 7201544, 59921362, 43155884, 9327326, 1219717 ####[facility] [address] [place], [place] [address]Ygoowdpmv [Mass/Vol]0.5 mg/dL Normal0.0-1.1FSumma Health Wadsworth - Rittman Medical CenterComment on above:Performed By: #### 6024295, 87497437, 30129744, 3539122, 4630141 ####[facility] [address] [place], [place] [address]Wrsqoaa [Mass/Vol]9.4 mg/dLNormal 8.9-11.1FSumma Health Wadsworth - Rittman Medical CenterComment on above:Performed By: #### 8496576, 97227763, 50311598, 8062034, 7719743 ####[facility] [address] [place], [place] [address]Okowcggb [Moles/Vol]107 mmol/LNormal 101-111St. Francis HospitalComment on above:Performed By: #### 3182431, 25536343, 76702767, 9508753, 1141526 ####[facility] [address] [place], [place] [address]MZ5 [Moles/Vol]24 mmol/LUbhfgv51-54 [facility] HospitalComment on above:Performed By: #### 2921108, 69108125, 76929834, 1155654, 5745748 ####[facility] [address] [place], [place] [address]Lovbqtmprr [Mass/Vol]0.7 mg/dLNormal 0.5-1.3FSumma Health Wadsworth - Rittman Medical CenterComment on above:Performed By: #### 2201813, 35711141, 04270425, 7600704, 2645877 ####[facility] [address] [place], [place] [address]Pfwqahfn (S) [Mass/Vol]3.2 g/dLNormal 1.4-4.0St. Francis HospitalComment on above:Performed By: #### 2026614, 64963895, 60358335, 0793626, 5893111 ####[facility] [address] [place], [place] [address]Jreahez [Mass/Vol]105 mg/mOLcwihx97-456 [facility] HospitalComment on above:Result Comment: If this glucose result represents a fasting glucose, interpretation should refer tothe following reference range: 55-99 mg/dLPerformed By: #### 4225216, 77153155, 60668764, 6559068, 7773374 ####[facility] [address] [place], [place] [address]Dhpcafmap [Moles/Vol]3.9 mmol/LNormal3.5-5.3FSumma Health Wadsworth - Rittman Medical CenterComment on above:Performed By: #### 1381938, 55840159, 52710526, 8193300, 2165472 ####[facility] [address] [place], [place] [address]Kydisbz [Mass/Vol]7.9 g/dLHigh6.0-7.8St. Francis HospitalComment on above:Performed By: #### 4430219, 70264144, 51651341, 9425074, 7473634 ####[facility] [address] [place], [place] [address]Udwejj [Moles/Vol]140 mmol/PWhuaye341-623PiplzcSt. Francis HospitalComment on above:Performed By: #### 5152039, 52391651, 12173839, 2317692, 9343386 ####[facility] [address] [place], [place] [address]Lwsw nitrogen [Mass/Vol]17 mg/dLNormal5-21St. Francis HospitalComment on above:Performed By: #### 6151680, 48492852, 86641683, 9772532, 2788915 ####[facility] [address] [place], [place] [address]Fceb nitrogen/Creatinine [Mass ratio]24 No AmqbiRolf64-12BdustwSt. 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 Discussed self breast exams and other health [...] and exercise increasing. Patient encouraged to use ckob-jjc-pnoiotb MiraLAX or Colace, encouraged Preparation H lcfk-yet-jmecrko topical treatments if needed. \ Follow-up only if needed. Patient only having minimal complaints 3. Constipation in female (K59.00: Constipation, unspecified) see #3 4. BMI 20.0-20.9, ad (more content not included)...[facility] SpringfieldComment on above:Result Comment: Electronically Signed By: Ya Wang\.br\Date and Time Signed: 10/08/22 16:30 EDTPatient Educationon 52-03-8601Iquddlo EducationEndocrinology Hypoglycemia Hypoglycemia occurs when the level [...] instructions at home: General instructions ? Take avkg-khi-ijtnifw and prescription medicines only as told by your health care provider. ? Monitor your blood glucose as told by your health care provider. ? If you drink alcohol: ? Limit how much you have to: ? 0?1 (more content not included)...NormalAdams County Regional [facility] Center With T4fr Reflexon 80-52-2383RIP Qn0.58 m[IU]/LNormal0.34-5.60St. [facility] HospitalComment on above:Performed By: #### 5219570, 76536871, 19683918, 5588052, 1603734 ####[facility] [address] [place], [place] [address]zSKEae 46-99-9221JWI/1.73 sq M.predicted among non-blacks MDRD (S/P/Bld) [Vol rate/Area]124 mL/min/1.73 e0Kcpffx>=59Fisher [facility] HospitalComment on above:Order Comment: Order added by Discern Expert.Result Comment: Chronic kidney disease could be indicated at eGFR's of less than 60 mL/min/1.73m2. K idney failure is indicated at less than 15 mL/min/1.73m2.Performed By: #### 8513753, 59765030, 05114637, 7678346, 2151900 ####[facility] [address] [place], [place] [address]ZTB ACOG PANEL 2: 21 to 29on 10-23-2021..NormalBrown Memorial HospitalComment on above:Performed By: #### CBC #### [facility] [address] [place] [address] Dr. Rima Dinh Gdln ACOG Nawtrtk31-22VcqlylAvzKettering Health TroyComkresge eye institute on above:Performed By: #### CBC #### [facility] [address] [place] [address] Dr. Rima CharlesDIAGNOSIS:CommentAdena Pike Medical Center on above: Result Comment: NEGATIVE FOR INTRAEPITHELIAL LESION OR MALIGNANCY. THIS SPECIMEN WAS RESCREENED PART OF OUR LINING PRINTER PROGRAM.Performed By: #### CBC #### [facility] [address] [place] [address] Dr. Rima ChralesMethodology:CommentAdena Pike Medical Center on above: Result Comment: This liquid based ThinPrep(R) pap test was screened with the use of an image guided system.Performed By: #### CBC #### [facility] [address] [place] [address] Dr. Rima CharlesNote:CommentAdena Pike Medical Center on above:Result Comment: The Pap smear is a screening test designed to aid in the detection of premalignant and malignant conditions of the uterine cervix. It is not a diagnostic procedure and should not be used as the sole means of detecting cervical cancer. Both false-positive and false-negative reports do occur. .Performed By: #### CBC #### [facility] [address] [place] [address] Dr. Rima CharlesPerformed by:CommentAdena Pike Medical Center on above: Result Comment: Piter Cagle, Division Service Manager (ASCP)Performed By: #### CBC #### [facility] [address] [place] [address] Dr. Rima Bryson reviewed by:[facility] on above:Result Comment: Hannah Morejon, Supervisory Division Service Manager (ASCP) Performed By: #### CBC #### [facility] [address] [place] [address] Dr. Rima CharlesReflex Criteria:CommentAdena Pike Medical Center on above:Result Comment: The HPV DNA reflex criteria were not met with this specimen result therefore, no HPV testing was performed. .Performed By: #### CBC #### [place] [address] Dr. Rima CharlesSpecimen adequacy:CommentAdena Pike Medical Center on above:Result Comment: Satisfactory for evaluation. Endocervical and/or squamous metaplastic cells (endocervical component) are present. Areas of partially obscuring blood are present.Performed By: #### CBC #### [facility] [address] [place] [address] Dr. Rima Cornell T4on 81-57-7953Kpet T4 [Mass/Vol]1.01 ng/dLNormal0.76-1.46 [facility] on above:Performed By: #### FT4 #### [facility] [address] [place] [address] Dr. Rima BrowerHoagustín 88-78-2447FPO6.997 uIU/mLCritically high0.358-3.740[facility] on above:Performed By: #### TSH #### [facility] [address] [place] [address] Dr. Rima CharlesVAGINITIS/VAGINOSIS DNA PROBEon 55-11-7954Uhfghja speciesNegative NormalNegativeThe [facility] on above:Performed By: #### CBC #### [facility] [address] [place] [address] Dr. Rima Moonerejoba vaginalisNegativeNormalNegativeBrown [facility] Hospital Comment on above:Performed By: #### CBC #### [facility] [address] [place] [address] Dr. Rima Calvo vaginalisNegativeNormalNegativeBrown Memorial Hospital Comment on above:Performed By: #### CBC #### [facility] [address] [place] [address] Dr. Rima CharlesCHLAMYDIA/GONOCOCCUS FRANSISCO (SWAB/URINE/PAPon 90-55-2782Sapwrxtvc trachomatis, NAANegativeNormalNegativeBrown Memorial HospitalComment on above: Performed By: #### CBC #### [facility] [address] [place] [address] Dr. Rima CharlesNeisseria gonorrhoeae, NAANegativeNormalNegativeBrown Memorial HospitalComment on above:Performed By: #### CBC #### [facility] [address] [place] [address] Dr. Rima CharlesVAGINITIS/VAGINOSIS DNA PROBEon 15-18-6904Nrodczo speciesNegative NormalNegativeBrown Memorial HospitalComment on above:Performed By: #### VAGINT #### [facility] [address] [place] [address] Dr. Rima Moonerebenedict vaginalisNegativeNormalNegativeBrown Memorial Hospital Comment on above:Performed By: #### VAGINT #### [facility] [address] [place] [address] Dr. Rima Calvo vaginalisNegativeNormalNegativeBrown Memorial Hospital Comment on above:Performed By: #### VAGINT #### [facility] [address] [place] [address] Dr. Rima Livingston 10-16-3349IKN7.494 uIU/mLNormal0.470-4.680Brown Memorial HospitalComment on above:Performed By: #### CBC #### [facility] [address] [place] [address] Dr. Rima Dougherty RANGESEE Parkview HealthComment on above: Result Comment: <0.34 UIU/ml HYPERTHYROID 0.34-5.60 UIU/ml EUTHYROID >5.60 UIU/ml HYPOTHYROIDPerformed By: #### CBC #### [facility] [address] [address] [address] Rima Barnes MATERNAL FOR SPINA BIFIDAon 08-24-8721LKX MoM0.98Gal[facility] HospitalComment on above:Performed By: #### AFPMAT #### [facility] [address] [address] [address] Rima Barnes Value36.3 ng/mLNormalBrown Memorial HospitalComment on above: Performed By: #### AFPMAT #### [facility] [address] [address] [address] Rima Barnes, Serum for Spina BifidaReDayton VA Medical Center Comment on above:Performed By: #### AFPMAT #### [facility] [address] [address] [address] Rima CurrieMercy Health Defiance HospitalComment on above:Result Comment: Alie Moon, Ph.D., [facility] Director . References: Available Upon Request. . Multiples Of Median Cutoffs For AFP Elevations Murphy 2.5 Black 2.8 IDD 2.0 Twins 4.5 Abbreviation Definitions IDD - Insulin Dep Diabetes OSBR - Open Spina Bifida Risk . For further inquiries contact [facility] at [phone].Performed By: #### AFPMAT #### [facility] [address] [address] [address] Rima Pedro Age Collection Date16.0 weeksGal[facility] Comment on above:Performed By: #### AFPMAT #### [facility] [address] [address] [address] Rima Pedroat, Age Based onLMPNormalBrown Memorial HospitalComment on above:Result Comment: Recalculations are not recommended when gestational dating by LMP and ultrasound are within 10 days.Performed By: #### AFPMAT #### [facility] [address] [place] [address] Dr. Rima CharlesMetroHealth Parma Medical CenterComkresge eye institute on above:Performed By: #### AFPMAT #### [facility] [address] [place] [address] Dr. Rima CharlesInterpretationMercy Health Defiance HospitalComkresge eye institute on above: Result Comment: Interpretation: Screen Negative [...] Customer Services to discuss available options. The [employer] recommends amniocentesis be offered to women age 35 and older.Performed By: #### AFPMAT #### [facility] [address] [place] [address] Dr. Rima CharlesMaternahaley Age at EDD23.4 yrGalion HospitalComkresge eye institute on above:Performed By: #### AFPMAT #### [facility] [address] [place] [address] Dr. Rima Erazo [facility] CenterComkres[facility] on above: Performed By: #### AFPMAT #### [facility] [address] [place] [address] Dr. Rima CharlesOSBR Risk 1 [id number] HospitalComkresge eye institute on above: Performed By: #### AFPMAT #### [facility] [address] [place] [address] Dr. Rima Meadows.[facility] on above:Performed By: #### AFPMAT #### [facility] [address] [place] [address] Dr. Rima MccoyCleveland Clinic Union HospitalComment on above: Performed By: #### AFPMAT #### [facility] [address] [place] [address] Dr. Rima Urena Results:NegativeNormalThe [facility] on above: Performed By: #### AFPMAT #### [facility] [address] [place] [address] Dr. Rima Del Rosario B SURFACE ANTIGEN SCREENon 18-56-2188NPaVw ScreenNegative NormalNegativeThe [facility]Comment on above:Performed By: #### HBSANS #### [facility] [address] [place] [address] Dr. Rima RiosTIS C ANTIBODYon 57-96-5061Ogs C Virus Ab<0.6Jbytbb4.0-0.9 The [facility] on above:Result Comment: Negative: < 0.8 Indeterminate: 0.8 - 0.9 Positive: > 0.9 . The CDC recommends that a positive HCV antibody result be followed up with a HCV Nucleic Acid Amplification test (894625).Performed By: #### HCV #### [facility] [address] [place] [address] Dr. Rima Chery 1 AND 2 WITH REFLEXon 24-46-4931QJF Screen 4th Generation wRfxNon-ReactiveNormalNon ReactiveThe [facility]Comkresge [facility] institute on above: Performed By: #### HIV12 #### [facility] [address] [place] [address] Dr. Rima CharlesRPR QUANTon 31-99-0394Hjvds Plasma Reagin, QuantNon-Reactive NormalNonRea<1:1The [facility] on above:Performed By: #### CBC #### [facility] [address] [place] [address] Dr. Rima MirelesBELLA AB IGGon 52-74-9944Lvbkipm Antibodies, IgG2.33 index NormalImmune >0.99The [facility] on above:Result Comment: Non- immune <0.90 Equivocal 0.90 - 0.99 Immune >0.99Performed By: #### RUBIGG #### [facility] [address] [address] [address] Rima Sierra AUTO DIFFon 18-56-6291ORTU #0.0 103/ulNormal0.0-0.1The [facility] Hospitalment on above:Performed By: #### CBC #### [facility] [address] [address] [address] Rima CharlesBasophils/100 WBC (Bld)0.4 %Normal0.2-2.0The [facility] Comment on above:Performed By: #### CBC #### [facility] [address] [place] [address] Dr. Rima Fuller #0.0 103/ulNormal0.0-0.7The [facility] on above: Performed By: #### CBC #### [facility] [address] [place] [address] Dr. Rima Leahyosinophils/100 WBC (Bld)0.6 %Critically low0.9-7.0The [facility] on above:Performed By: #### CBC #### [facility] [address] [place] [address] Dr. Rima Leahyrythrocyte distribution width (RBC) [Ratio]12.0 %Zddtsa17.0-15.0 The [facility] on above:Performed By: #### CBC #### [facility] [address] [place] [address] Dr. Rima CharlesHematocrit (Bld) [Volume fraction]37.5 %Ctpfna96.0-48.0The [facility]woodsComment on above:Performed By: #### CBC #### [facility] [address] [place] [address] Dr. Rima CharlesHemoglobin (Bld) [Mass/Vol]13.2 g/jXPtvcrn11.0-16.0The [facility] Hospitalment on above:Performed By: #### CBC #### [facility] [address] [place] [address] Dr. Rima Carreno #0.02 10e3/ulNormal0.00-0.03The [facility] Hospitalment on above:Performed By: #### CBC #### [facility] [address] [address] [address] Rima Carreno %0.3 %Normal0.0-0.5The [facility]Comkresge [facility] institute on above: Performed By: #### CBC #### [facility] [address] [address] [address] Rima Singleton #1.4 103/ulNormal1.2-3.8The [facility]Comk[facility] on above:Performed By: #### CBC #### [facility] [address] [place] [address] Dr. Rima Jayhocytes/100 WBC (Bld)20.2 %Critically low20.5-60.0The [facility]Comkres[facility] institute on above:Performed By: #### CBC #### [facility] [address] [place] [address] Dr. Rima Lr DIFF REQNONormalThe [facility]Comment on above: Performed By: #### CBC #### [facility] [address] [place] [address] Dr. Rima Nicholas (RBC) [Entitic mass]33.2 tdZqvult13.7-34.0The [facility] on above:Performed By: #### CBC #### [facility] [address] [place] [address] Dr. Rima Fall (RBC) [Mass/Vol]35.2 g/fTUmtesj21.9-35.2The [facility] Hospitalment on above:Performed By: #### CBC #### [facility] [address] [place] [address] Dr. Rima Fall (RBC) [Entitic vol]94.5 nCSutnlw20.0-99.0[facility] on above:Performed By: #### CBC #### [facility] [address] [place] [address] Dr. Rima Grossman #0.4 103/ulNormal0.3-0.8The [facility]Comment on above:Performed By: #### CBC #### [facility] [address] [place] [address] Dr. Rima Wenocytes/100 WBC (Bld)6.1 %Normal1.7-12.0The [facility] Comment on above:Performed By: #### CBC #### [facility] [address] [place] [address] Dr. Rima Huston #5.1 103/ulNormal1.4-6.5The [facility]Comment on above:Performed By: #### CBC #### [facility] [address] [place] [address] Dr. Rima Bobutrophils/100 WBC (Bld)72.4 %Cmckbg34.0-75.0The [facility]woodsComment on above:Performed By: #### CBC #### [facility] [address] [place] [address] Dr. Rima Bradfordlet mean volume (Bld) [Entitic vol]11.2 fLNormal9.5-13.5The [facility]woodsComment on above:Performed By: #### CBC #### [facility] [address] [place] [address] Dr. Rima CharlesPLT221 103/eqVoyzat344-080Dif [facility]woodsComment on above: Performed By: #### CBC #### [facility] [address] [place] [address] Dr. Rima CharlesRBC3.97 106/ulCritically low4.20-5.40The [facility]woodsComment on above:Performed By: #### CBC #### [facility] [address] [place] [address] Dr. Rima CharlesWBC7.1 103/ulNormal4.0-11.0The [facility]woodsComment on above: Performed By: #### CBC #### [facility] [address] [place] [address] Dr. Rima Cardenas URINEon 85-65-6426UAVVPYM URINECulture Observations: No growthNoKettering Health TroyComment on above:Performed By: #### CBC #### [facility] [address] [place] [address] Dr. Rima CharlesGLYCOHEMOGLOBIN A1Con 46-23-7327UBE RECOMMENDATIONADA THERAPEUTIC TARGET 6.0 - 7.0 ACTION SUGGESTED > 7.0NoKettering Health TroyComment on above:Performed By: #### A1C #### [facility] [address] [place] [address] Dr. Rima CharlesGlucose [Mass/Vol]111 mg/dLGalion HospitalComment on above:Performed By: #### A1C #### [facility] [address] [place] [address] Dr. Rima CharlesHbA1c (Bld) [Mass fraction]5.5 %Normal<=6.0[facility] Comment on above:Performed By: #### A1C #### [facility] [address] [place] [address] Dr. Rima Escalante BOX TEST PT SEND OUTon 39-37-6054WEFW TO REF LAB12/09/20 NormalBrown Memorial HospitalComkresge eye institute on above:Performed By: #### CBC #### [facility] [address] [place] [address] Dr. Rima BrowerHoagustín 73-30-2614ASG7.651 uIU/mLNormal0.470-4.680The [facility]Comkresge [facility] institute on above:Performed By: #### CBC #### [facility] [address] [place] [address] Dr. Rima Dougherty RANGESEE BELOWGalion HospitalComment on above: Result Comment: <0.34 UIU/ml HYPERTHYROID 0.34-5.60 UIU/ml EUTHYROID >5.60 UIU/ml HYPOTHYROIDPerformed By: #### CBC #### [facility] [address] [place] [address] Dr. Rima CharlesTYPE AND SCREENon 72-99-1984AHOA AND SCREENNegativeNoKettering Health TroyComment on above:Performed By: #### CBC #### [facility] [address] [address] [address] Rima Butler PREG TVon 07-90-6396XD PREG TVEXAMINATION: US PREG TV HISTORY: Urine [...] Electronically authenticated by: LILIANE POPE Date: 2020-12-02 09:34[facility] Vital Signs Date TimeVital SignValuePerforming VbanfdiqxYziizvsi57-68-3274 08:39-0500Body mass index (BMI) [Ratio]26.29 kg/m2Qelrt NebuAd DO Work Phone: [phone] [place], [place] [address]Nttybxnkcd04-91-3403 08:39-0500Body lzhbek37.67 kgCorey [employer] Work Phone: [phone] [place], [place] [address]Fpsythswgc00-82-7430 08:39-0500Diastolic blood ogrjutde09 mm[Hg]SantoshPledge51 Work Phone: [phone] [place], [place] [address]Tdokphjzoh25-26-6922 08:39-0500Systolic blood neptrrho421 mm[Hg]SantoshPledge51 Work Phone: [phone] [place], [place] [address]Epliuqasgs36-78-5364 08:35-0400Body mass index (BMI) [Ratio]26.71 kg/o9Clneo Joanna [employer] Work Phone: [phone] Medical CenterYxwsctrmrk43-32-9097 08:35-0400Body mziukf34.8 kg SantoshPledge51 Work Phone: [phone] UnionJohn [facility] Medical CenterPrljxalszb48-93-9288 08:35-0400Diastolic blood wunutsnn67 mm[Hg]Santosh Joanna DO Work Phone: [phone] [place], [place] [address]Gguurohrpd07-21-4782 08:35-0400Systolic blood mm[Hg]Santosh Joanna DO Work Phone: [phone] [place], [place] [address]Rjpzguhmrk32-15-3119 11:20-0400Body mass index (BMI) [Ratio]25.38 kg/l1Xqgsg Joanna DO Work Phone: [phone] [place], [place] [address]Ehnrurqwrs81-98-8280 11:20-0400Body oxfgvh92.17 kgCorey Joanna DO Work Phone: [phone] [place] [address]-13-2025 11:20-0400Diastolic blood focdivju52 mm[Hg]Santosh Joanna DO Work Phone: [phone] [place], [place] [address]Tmischokcd00-39-3534 11:20-0400Systolic blood mm[Hg]Santosh Joanna DO Work Phone: [phone] [place], [place] [address]9-22-2025 10:23-0400Body mass index (BMI) [Ratio]24.79 kg/m2Amy Brea PA Work Phone: [phone] [place], [place] [address]Nrnypernlb89-36-4829 10:23-0400Body .59 kgAmy Brea PA Work Phone: [phone] [place], [place] [address]Zpzziuxcua92-71-8212 10:23-0400Diastolic blood pjufpkto28 mm[Hg]Erum Guidry PA Work Phone: [phone] [place], [place] [address]Kffwokrbhn51-68-0879 10:23-0400Systolic blood wnekljnr732 mm[Hg]Erum Guidry PA Work Phone: [phone] [place], [place] [address]Vpcmmqkupb97-10-0562 11:45-0400Body mass index (BMI) [Ratio]23.15 kg/v6Hzxag Joanna DO Work Phone: [phone] [place], [place] [address]Tookusuhew78-44-2902 11:45-0400Body ypqxiw87.1 kg Santosh Joanna DO Work Phone: [phone] [place], [place] [address]Nglcnjcqxg72-30-0997 11:45-0400Diastolic blood ffniknwg43 mm[Hg]Santosh Joanna DO Work Phone: [facility] Medical CenterZoiidcpoxp88-16-2053 11:45-0400Systolic blood xyrafyip653 mm[Hg]Santosh Bhaktao DO Work Phone: [phone]08-18-2025 11:51-0400Body geylwt007.1 cmJacklyn Campos MD Work Phone: [phone] [place], [place] 0151008-18-2025 11:51-0400Body mass index (BMI) [Ratio]23.03 kg/d3FzglteizJacklyn Campos MD Work Phone: [phone])[address] [place], [place] 0151008-18-2025 11:51-0400Body nfnkuh36.78 kgJacklyn Campos MD Work Phone: [phone] [place], [place] 0151008-18-2025 11:51-0400Diastolic blood yttcrxow75 mm[Hg]Jacklyn Campos MD Work Phone: [phone] [place], [place] 0151008-18-2025 11:51-0400Heart rate 94 /minJacklyn Campos MD Work Phone: [phone] [place], [place] 0151008-18-2025 11:51-0400Systolic blood xwhohiyc06 mm[Hg]Jacklyn Campos MD Work Phone: [phone] [place], [place] 0151007-28-2025 10:13-0400Body mass index (BMI) [Ratio]22.38 kg/m2Erum HAYS Work Phone: [phone] [place], [place] [address]Rfvyrgjaop14-55-9914 10:13-0400Body ugkoxc16.01 kgErum HAYS Work Phone: [phone] [place], [place] [address]Azokvblohi40-48-5127 10:13-0400Diastolic blood nexqohzs80 mm[Hg]Erum HAYS Work Phone: [phone] [place], [place] [address]Vxbzbcrtqu89-33-8520 10:13-0400Systolic blood hzzrgsqi141 mm[Hg]Erum HAYS Work Phone: [facility] CenterOhrnerihij66-55-7020 11:10-0400Body mass index (BMI) [Ratio]22.1 kg/i5Qtgfc Joanna DO Work Phone: [phone] [place], [place] [address]Iozhkxlzqh53-97-3723 11:10-0400Body wmcaxp70.24 kgCorey Joanna DO Work Phone: [phone])[facility] [place], [place] [address]Jzgovqjzvz39-36-4756 11:10-0400Diastolic blood fhdrlyvj53 mm[Hg]Santosh Joanna DO Work Phone: [phone] [place], [place] [address]Osaadsomrz72-68-9493 11:10-0400Systolic blood pbaawxix217 mm[Hg]Santosh Joanna DO Work Phone: [phone] [place], [place] [address]5-30-2025 10:00-0400Body mass index (BMI) [Ratio]22.86 kg/m2[facility]05-30-2025 10:00-0400Body .32 kgAlvin J. Siteman Cancer Center05-30-2025 10:00-0400Diastolic blood hivfmdvy72 mm[Hg][facility]05-30-2025 10:00-0400Systolic blood uiupirhs370 mm[Hg][facility]09-23-2024 14:19-0400Body mass index (BMI) [Ratio]21.15 kg/o0Mifdf Joanna DO Work Phone: [phone] [place], [place] [address]Obwaiymlls92-69-3027 14:19-0400Body exboag92.66 kgCorey Joanna DO Work Phone: [phone]-[facility] Medical CenterZcacqknyvr46-38-4954 14:19-0400Diastolic blood baygaiht36 mm[Hg]Santosh Joanna DO Work Phone: [facility] Medical CenterMzwxekykvy85-10-7288 14:19-0400Systolic blood rbyqsvtv122 mm[Hg]Santosh Joanna DO Work Phone: 1(360)179-[address] [place], [place] [address]Lcdbuutiow74-56-4424 15:43-0400Blood Pressure Eladia Thornton 109-9567Ucnmsf-ZdtmrBluffton Hospital Wcfs84-69-5548 15:43-0400Diastolic blood aubpgavj08 mm[Hg]Ya Thornton 575-4298Biuazd-Mtjhd[address] [place], [place] 0706405-20-2024 15:43-0400Heart xxwq971 /Waqar Thornton 099-3839Ydumfb-Nmoto[address] [place], [place] 0706405-20-2024 15:43-0400Respiratory rate18 /Waqar Thornton 088-0993Srnxeq-Kgzea[address] [place], [place] 0706405-20-2024 15:43-6784ByL0% (BldA) [Mass fraction]100 %Ya Thornton [address] [place], [place] 7563005-20-2024 15:43-0400Systolic blood xnhyqymi014 mm[Hg]Ya Thornton [address] [place], [place] 7563012-20-2023 07:21-0500Blood Pressure LocationYa Thornton [address] [place], [place] 7563012-20-2023 07:21-0500Body wwndeckdoee02.52 [degF]Ya Thornton [address] [place], [place] 7563012-20-2023 07:21-0500Diastolic blood mm[Hg]Ya Thornton [address] [place], [place] 7563012-20-2023 07:21-0500Heart rate91 /Waqar Thornton [address] [place], [place] 7563012-20-2023 07:21-0500Respiratory rate18 /Waqar Thornton [address] [place], [place] 7563012-20-2023 07:21-1234FpE6% (BldA) [Mass fraction]100 %Ya Thornton [address] [place], [place] 7563012-20-2023 07:21-0500Systolic blood uafsmyvr497 mm[Hg]Ya Thornton [phone]-XsvtkBrown [facility] Hospital12-04-2023 12:53-0500Blood Pressure LocationYa Thornton 892-2071Zkysch-Kwobr[address] [place], [place] 0706412-04-2023 12:53-0500Diastolic blood otnzvhmt55 mm[Hg]Ya Thornton 050-0651Lmwhve-Wsjkj[address] [place], [place] 0706412-04-2023 12:53-0500Heart mfxp396 /Waqar Thornton 559-1322Ajzwph-Wkzbi[address] [place], [place] 0706412-04-2023 12:53-0500Respiratory rate18 /Waqar Thornton 709-0783Wjjtht-Xzoas[address] [place], [place] 0706412-04-2023 12:53-8481VoJ4% (BldA) [Mass fraction]99 %Ya Thornton 560-1524Lgxysb-Naqfb[address] [place], [place] 0706412-04-2023 12:53-0500Systolic blood ywpvzszd015 mm[Hg]Ya Thornton 742-7281Cmrsej-Khlvd[address] [place], [place] 0706409-12-2023 12:10-0400Blood Pressure LocationDaniel Gray 195-5383Rkfnom-RgnjiMercy Hospital09-12-2023 12:10-0400Body .52 [degF]Daniel Gray 456-1686Zndwhk-NnlhjMercy Hospital09-12-2023 12:10-0400Diastolic blood xteautad63 mm[Hg]Daniel Gray 925-4761Tgrnkq-ZtbgnMercy Hospital09-12-2023 12:10-0400Heart rate97 /Hans Gray 913-4045Rfxygt-VstnbMercy Hospital09-12-2023 12:10-0400Systolic blood kuvpnjtn038 mm[Hg]Daniel Gray 611-8283Wodtin-LoapaMercy Hospital08-24-2023 09:20-0400Blood Pressure LocationYa Thornton 353-3637Arzvgy-Bjouu[address] [place], [place] 0706408-24-2023 09:20-0400Body metvuhqhqfr52.06 [degF]Yasampson Thornton 882-3083Cdqupn-Nbdvv[address] [place], [place] 0706408-24-2023 09:20-0400Diastolic blood ceubsadb95 mm[Hg]Ya Thornton 449-4658Vpmkhv-Bzzip[address] [place], [place] 0706408-24-2023 09:20-0400Heart rate76 /minEgerald Thornton 258-8081Jpxdlu-Eotgt[address] [place], [place] 0706408-24-2023 09:20-5951DlX7% (BldA) [Mass fraction]98 %Yasampson Thornton 403-5459Yplnlo-Kxjpo[address] [place], [place] 0706408-24-2023 09:20-0400Systolic blood yuykvtqa744 mm[Hg]Ya Thornton 529-1234Bbkwzr-Jqbpm[address] [place], [place] 0706402-13-2023 14:14-0500Blood Pressure LocationRitu Desai 121-5491Njbkei-Nwrjp[address] [place], [place] 0706402-13-2023 14:14-0500Body qqicetppwtv86.7 [degF]Ritu Desai 480-7493Kqkjrv-Jfqna[address] [place], [place] 0706402-13-2023 14:14-0500Diastolic blood bggyqgas89 mm[Hg]Ritu Desai 248-8217Nxmoal-Hdpeg[address] [place], [place] 0706402-13-2023 14:14-0500Heart rate71 /minRitu Desai 893-6590Ybbznw-Luqkg[address] [place], [place] 0706402-13-2023 14:14-4074HrR6% (BldA) [Mass fraction]98 %Ritu Desai [phone]-RxzmwWexner Medical Center Primary Cxip28-13-4261 14:14-0500Systolic blood cmgzyvzv051 mm[Hg]Ritu Moralesell 748-5367Chfopl-LcjtoWexner Medical Center Primary Pokg54-69-7814 02:06-0400Body ckpybg19.968 kgDR [facility] Methodist HospitalComment on above:Performed By: #### AFPMAT #### [facility] [address] [address] [address] Rima Charles Encounters Encounter DateEncounter TypeCare ProviderFacilityStart: 01-28-2025 End: 00-01-1548Fphqju flowsheetCorey Joanna DO Work Phone: [facility] OBGYNStart: 01-28-2025 End: 95-07-0528Nggsvd flowsheetCorey Joanna DO Work Phone: [facility] Oral OBGYNStart: 01-28-2025 End: 81-94-9645Evzufjjk flow sheetCorey Joanna DO Work Phone: NOMS Oral OBGYNComment on above:Third trimester ([facility]); 32 weeks gestation of ([facility]); Thyroid disease; History of prior with IUGR ; Hypothyroidism, unspecified typeStart: 01-28-2025 End: 47-34-9940eptegwqpojEYJXM FAZIONot AvailableStart: 01-14-2025 End: 50-64-8887Rwnfyy flowsheetCorey Joanna DO Work Phone: [facility] Oral OBGYNStart: 01-14-2025 End: 98-00-2875Wixtaq flowsheetCorey Joanna DO Work Phone: [facility] Oral OBGYNStart: 01-14-2025 End: 25-62-9209Rondcjyg flow sheetCorey Joanna DO Work Phone: NOMS Augustina OBGYNComment on above:Third trimester ([facility]); 30 weeks gestation of ([facility])Start: 01-14-2025 End: 52-27-0593scptnzpvawOOFNS FAZIONot AvailableStart: 90-06-8325qgmlvmyiqd Martaishmael RickettsmarcusFacility:[facility] PCStart: 12-31-2024 End: 17-42-2715Acgdipzh flow sheetCorey Joanna DO Work Phone: NOKD Augustina OBGYNComment on above:Third trimester ([facility]); 28 weeks gestation of ([facility])Start: 12-31-2024 End: 39-05-6090gonspgiqnzJCMBA FAZIONot AvailableStart: 12-12-2024 End: 49-29-7116Gbfnnzcbz Result EncounterErum HAYS Work Phone: NOIC External Department UnsolicitedStart: 12-12-2024 End: 70-24-2527Zptolkafg Result EncounterErum HAYS Work Phone: NOSU External Department UnsolicitedStart: 12-11-2024 End: 15-92-0320lmuwtdeoevFZADQ R [facility] SERVICESTaurusMedisunny Coosada HospitalStart: 12-11-2024 End: 48-60-8610Vlcdnptyy Result EncounterErum HAYS Work Phone: NOPX External Department UnsolicitedStart: 12-11-2024 End: 68-98-0033Lrexyxniz Result EncounterErum HAYS Work Phone: NOHF External Department UnsolicitedStart: 12-10-2024 End: 21-49-2530Srqbox flowsheetErum HAYS Work Phone: N[facility] Oral OBGYNStart: 12-10-2024 End: 32-83-7576Glaxbs oliviaheetErum HAYS Work Phone: NOMS Oral OBGYNStart: 12-10-2024 End: 77-90-0493Ywzachrc flow sheetErum HAYS Work Phone: NOSS Oral OBGYNComment on above:Size of fetus inconsistent with dates in second trimester ([facility]) (Primary Dx); Second trimester ([facility]); 25 weeks gestation of ([facility]); Diabetes mellitus screeningStart: 12-10-2024 End: 13-65-5652ifhirvotrqLDZ RAMFORTINONot AvailableStart: 11-27-2024 End: 69-44-1973jvobiypnqjLXCFO R [facility] HospitalStart: 11-20-2024 End: 42-60-3964hftevanussLELQT R [facility] HospitalStart: 11-12-2024 End: 98-93-0504Iupbrv flowsheetCorey Joanna DO Work Phone: noms Oral OBGYNStart: 11-12-2024 End: 89-91-9141Mawtet flowsheetCorey Joanna DO Work Phone: noms Augustina OBGYNStart: 11-12-2024 End: 12-14-1006Pylzhqry flow sheetCorey Joanna DO Work Phone: noms Augustina OBGYNComment on above:Hypothyroidism, unspecified type (Primary Dx); Second trimester ([facility]); 21 weeks gestation of ([facility]); Vaginal discharge; STD exposureStart: 11-12-2024 End: 00-16-8135attcpnqneeBTUNP FAZIONot AvailableStart: 11-07-2024 End: 16-60-8655Drvdvgaiw Result EncounterCorey Joanna DO Work Phone: noms External Department UnsolicitedStart: 11-07-2024 End: 60-60-1904Wtdvyetrv Result EncounterCorey Joanna DO Work Phone: noms External Department UnsolicitedStart: 11-06-2024 End: 82-23-3465Kkmruz Sesar Smith RNMaternal- Medicine at [facility] Hospital for RehabilitationComment on above: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 trimester (Primary Dx); History of prior with IUGR ; History of premature rupture of membranesStart: 11-05-2024 End: 85-70-5475Gpxfba consultation new/estab patient 58 Jesus Campos MD Work Phone: [phone]-Tpygw Medicine at [facility] Comment on above:20 weeks gestation of (Primary Dx); Low-lying placenta; 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 trimester; History of prior with IUGR ; Family history of autism; History of gestational diabetes in prior , currently ; History of prior with short cervix, currently ; History of premature rupture of membranesStart: 11-05-2024 End: 94-37-9225rggbcahgggMDREQ [facility] HospitalStart: 10-15-2024 End: 48-67-0404Bpmbpx flowsLizzie HAYS Work Phone: noms Augustina OBGYNStart: 10-15-2024 End: 54-40-2212Lxicav David HAYS Work Phone: NOHO Oral OBGYNStart: 10-15-2024 End: 89-41-0194Klzqgnyiw Result EncounterErum HAYS Work Phone: noms External Department UnsolicitedStart: 10-15-2024 End: 47-69-4846Hbvvnjmo flow Mahamed HAYS Work Phone: NOHP Augustina OBGYNComment on above:Second trimester ([facility]); 17 weeks gestation of ([facility])Start: 10-15-2024 End: 78-54-5345rsazshfpqoDUN RAMEYNot AvailableStart: 10-02-2024 End: 38-29-7254Fwsrkhygr Result EncounterCorey Joanna DO Work Phone: noms External Department UnsolicitedStart: 10-02-2024 End: 22-82-6456Trzlqdpub Result EncounterCorey Joanna DO Work Phone: noms External Department UnsolicitedStart: 09-24-2024 End: 28-33-5455Ooaxv Rob Campos MD Work Phone: [phone]-Qenem [facility] Start: 09-24-2024 End: 98-63-4427Vmogkmsny Result EncounterCorey Joanna DO Work Phone: noms External Department UnsolicitedStart: 09-24-2024 End: 44-90-8660Pihpflrox Result EncounterCorey Joanna DO Work Phone: noms External Department UnsolicitedStart: 09-20-2024 End: 78-67-3153Kutwub Kashif Gutierrez RNMaternal- Medicine at [facility] Hospital for RehabilitationComment on above:Thyroid disease affecting (Primary Dx); History of prior with IUGR newbornStart: 09-17-2024 End: 06-91-1368Cgkulm flowsheetCorey Joanna DO Work Phone: noms BCP OBStart: 09-17-2024 End: 28-15-9451Frjnvw flowsheetCorey Joanna DO Work Phone: noms BCP OBStart: 09-17-2024 End: 32-18-9055oobmcmiovbHYJWS FAZIONot AvailableStart: 09-17-2024 End: 80-90-0249Toektcvp flow sheetCorey Joanna DO Work Phone: noms BCP OBComment on above:13 weeks gestation of ([facility]); Second trimester ([facility]); Thyroid disease ; History of prior with IUGR ; Diabetes mellitus screeningStart: 09-12-2024 End: 97-17-7492Thwobtsjv Result EncounterCorey Joanna DO Work Phone: noms External Department UnsolicitedStart: 09-12-2024 End: 47-66-4928Vbbezqaym Result EncounterCorey Joanna DO Work Phone: noms External Department UnsolicitedStart: 08-21-2024 End: 88-51-6350Urzjcovuw Result EncounterCorey Joanna DO Work Phone: NOMS External Department UnsolicitedStart: 08-21-2024 End: 19-81-7477Wumirokvm Result EncounterCorey Joanna DO Work Phone: NOMS External Department UnsolicitedStart: 08-17-2024 End: 40-19-1754Iqrvye outpatient visit 5 minutesNoms Bcp Ob Joanna NurseNOMS BCP OBComment on above:GA: 4u1aOplbe: 08-17-2024 End: 54-09-9999wgrcptidwtKPNJX FAZIONot AvailableStart: 07-09-2024 End: 57-72-7454djfhyattkiScejnnEric AlmanzarFacility:[facility] PCStart: 07-05-2024 End: 70-05-3112mqgtqjfryvTmnzk J SosinskiFacility:[place] PCStart: 07-04-2024 End: 95-52-3130ksyczmiydmUskjoeEric AlmanzarFacility:FTMCStart: 07-04-2024 End: 67-76-4196Nvbsstn encounter Patsy Almanzar [facility] Start: 05-14-2024 End: 12-37-8274erfveoevoaVXBGAS E COSTINAkron [facility] SSDtart: 05-14-2024 End: 75-77-5935Mbjnuefazy hospital visit by Krys Jurado MD Work Phone: [facility] LabComment on above:Family history of autismStart: 12-12-2023 End: 70-17-1861Xwpqsc flowsheetCorey Joanna DO Work Phone: NOMS BCP OBStart: 12-12-2023 End: 20-30-5309Ioqley flowsheetCorey Joanna DO Work Phone: NOMS BCP OBStart: 12-12-2023 End: 95-74-0781Dwgiwijbv Result EncounterCorey Joanna DO Work Phone: noMS External Department UnsolicitedStart: 12-12-2023 End: 99-81-6768Iwwyzrp encounter procedureCorey Joanna DO Work Phone: [facility] Work Phone: Start: 12-12-2023 End: 10-41-8826Ucfzszyf preventive med est patient 18-39 yrsCorey Joanna DO Work Phone: NOAB BCP OBComment on above:Well woman exam with routine gynecological examStart: 09-07-2023 End: 09-41-1964yqditmrtwxAhqrlofku L ClarkFacility:FTMCStart: 09-07-2023 End: 28-24-3681Zwillcj encounter procedureYa Thornton [facility] Start: 08-08-2023 End: 43-51-5894zxxkumhdlbPmixyhymx L ClarkFacility:[place] PCStart: 08-08-2023 End: 18-93-1738Yyzgjzp encounter Rosina Thornton [phone]-FzlppW[facility] Start: 07-12-2023 End: 67-65-3928tudpjvfkgnAELGBPJO E PERRYFacility:EU ueStart: 07-12-2023 End: 33-41-4739Ejbqrox encounter procedureJENNIFER E SUKH [facility] start: 05-16-2023 End: 09-65-8085bskbpmbuyhRwjjuhyhq L ClarkFacility:FTMCStart: 05-16-2023 End: 66-83-2652ocgtdwovswSwqdldylb L ClarkFacility:[place] PCStart: 04-01-2023 ambulatoryYa ThorntonFacility:EU BellevueStart: 03-24-2023 End: 31-72-8972oteklmxoydCnhstwjbb L ClarkFacility:FTMCStart: 03-24-2023 End: 08-61-7159Pvcwgbv encounter procedureYa Thornton [facility] Start: 03-22-2023 End: 27-28-0517ymoeqgkjneSqnqrqike L ClarkFacility:FTMCStart: 03-22-2023 End: 38-86-4289Egjbskc encounter procedureYa Thornton [facility] Start: 03-09-2023 End: 54-07-2274Hvl Drop offYa Thornton [facility] start: 03-09-2023 End: 46-31-3781igthnbllysZurjrepkc L ClarkFacility:FTMCStart: 03-09-2023 End: 26-69-9262Ccnndzp encounter procedureYa Thornton [phone]-IwfifWex[facility] Start: 02-21-2023 End: 25-31-9557Pxq Drop offYa Thornton [facility] Start: 02-21-2023 End: 84-16-4897ueaqifwebnNxovbfgpw L ClarkFacility:FTMCStart: 02-21-2023 End: 61-59-8295Zbczmyj encounter procedureYa Thornton [phone]-PqiatWexner Medical Center [facility] Start: 11-30-2022 End: 72-63-8878ngnazyvqpyNejx A SteinmetzFacility:[facility] DHStart: 11-30-2022 End: 40-66-3352Ivxdgbk encounter procedureDaniel Gray [phone]-SayxjWex[facility] Center [facility] Start: 98-91-5681vdvnbchqcaVooriixbf Clark Facility:[facility] DHStart: 11-11-2022 End: 35-88-2443uhdetklzqtVybgkpvjw L ClarkFacility:[place] PCStart: 11-11-2022 End: 75-85-4111Zhluyht encounter procedureYa Thornton [phone]-JyyqzWexner [facility] Center [facility] Start: 10-08-2022 End: 44-36-9850ptmbbbybtzWadrzpvbp L ClarkFacility:MCStart: 10-08-2022 End: 55-75-0213poyuquwtluTlmzaqetl L ClarkFacility:[place] PCStart: 05-03-2022 End: 80-16-5166Fqyiyli encounter procedureRitu Desai [phone]-AlqddWexner Medical Center [facility] Start: 10-19-2021 End: 55-71-0760wylspyuwcyLI SANTOSH FAZIOFacility:N0Awacb: 10-17-2021 End: 77-63-5064tlhnmyamleQF SANTOSH FAZIOFacility:X3Apwmp: 42-09-0623xaskbdsngvDC SANTOSH FAZIOFacility:H2Ebiuv: 07-13-2021 End: 02-90-4598pjzyofmxosII DOCTOR MISCFacility:V5Vmrrp: 05-06-2021 End: 76-91-6408dhmmpnjatzOJ ERASMO KARASIKFacility:O5Wqwch: 02-24-2021 End: 31-86-2971ooruegnpsdLO SANTOSH FAZIOFacility:V9Mixis: 01-13-2021 End: 23-80-8792lonegawuzkZH SANTOSH FAZIOFacility:C0Vjlsi: 12-09-2020 End: 59-80-8371iqxbllcllmVD SANTOSH FAZIOFacility:K9Fuqej: 12-02-2020 End: 96-44-2122kzewhqyvmzEG SANTOSH FAZIOFacility:H1 Procedures DateProcedureProcedure DetailPerforming ClinicianStart: 21-85-1675Umuyn dip stick/tablet rgnt non-auto w/o micrscpCorey Joanna DO Work Phone: Start: 60-18-0939Losvb dip stick/tablet rgnt non-auto w/o micrscpAmy Brea HAYS Work Phone: Start: 70-40-7441Qfxdk dip stick/tablet rgnt non-auto w/o micrscpCorey Joanna DO Work Phone: Start: 13-44-8945SDGFQPT TOLERANCE 3 HOURAmy Brea HAYS Work Phone: Start: 94-14-3937HPA CBC WITH AUTO DIFFAmy Brea HAYS Work Phone: Start: 51-98-4192Ivunc dip stick/tablet rgnt non-auto w/o micrscpAmy Brea HAYS Work Phone: Start: 25-47-1925Cfofl dip stick/tablet rgnt non-auto w/o micrscpCorey Joanna DO Work Phone: Start: 14-97-7302TBF THYROID STIM HORMONECorey Joanna DO Work Phone: Start: 76-87-8155EFG, SERUM, OPEN SPINA BIFIDAAsusanne HAYS Work Phone: Start: 65-13-6453Nagky dip stick/tablet rgnt non-auto w/o micrscpCorey Joanna DO Work Phone: Start: 96-79-3981OZSMEVQ 1 HOURCorey Joanna DO Work Phone: Start: 64-97-9473NNW MISCELLANEOUS TESTCorey Joanna DO Work Phone: Start: 61-32-7703FXK MISCELLANEOUS TESTCorey Joanna DO Work Phone: Start: 08-89-8571Hrhhsjgbbarry Campos MD Work Phone: Start: 66-40-8615XNY W Auto Differential panel - Blood Santosh R Joanna DO Work Phone: Start: 00-34-2496Mmcg scrn 1+ class nonchromoNot In System Ref ProvStart: 33-59-7391Bbergkusxi glycosylated p1nKbiey R Joanna DO Work Phone: Start: 76-49-0842Bopqbdork c antibodyNot In System Ref ProvStart: 03-23-1636VUQ 1&2 AB/AG SCREEN (P24 AG)Not In System Ref ProvStart: 44-16-2995Aida ia hepatitis b surface antigenNot In System Ref ProvStart: 79-27-6572FKBKDHAE TOTAL(UNKNOWN SYPHILIS STATUS)Not In System Ref ProvStart: 80-21-8809JLJO AND SCREENNot In System Ref ProvStart: 15-28-2027DBW CBC WITH AUTO DIFFCorey JoannaStumpwise Work Phone: Start: 08-17-2024 End: 03-68-7746Fnbfb dip stick/tablet rgnt non-auto w/o micrscpCorey JoannaStumpwise Work Phone: Start: 77-38-2848BWX,APTIMA HPV,AGE GDLNCorey JoannaStumpwise Work Phone: Start: 15-47-7131Zbrrf depression screening assessment Jacklyn Campos MD Work Phone: None (qualifier value)Ritu Desai Plan of Treatment DateCare ActivityDetailAuthorStart: 63-58-5817UAfY,Tdap and Td Vaccines (8 - Td or Tdap)DTaP,Tdap and Td Vaccines (8 - Td or Tdap)[facility] Spine SystemStart: 11-06-2025 End: 36-70-1660NM MFM with or without consultUS MFM with or without consult Imaging Routine 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 trimester History of prior with IUGR History of premature rupture of membranes Expected: 11/06/2025 (Approximate), Expires: 11/06/2025[facility] Work Phone: comment on above:Expected: 11/06/2025 (Approximate), Expires: 11/06/2025Start: 50-14-6112Pwslj BMI ScreeningAdult BMI Screening [facility] SystemStart: 46-25-3107Crsoojv ScreeningTobacco Screening [facility] SystemStart: 02-13-2025 End: 96-63-3120Cqtujez encounter cfwaeypjw69/26/2025 10:50 AM EST Routine [facility] [address] [phone] Santosh Marshall DO [address] [place] [address] NOMS Oral OBGYNStart: 02-04-2025 End: 30-59-3163Rnlehdxgkeom / ancillary services nnxggdmihh72/17/2025 8:00 AM EST Ancillary Procedure [facility] [address] [address] NOMS Oral OBGYNStart: 01-28-2025 End: 71-52-0843QP biophysical profile w non stress testUS biophysical profile w non stress test Imaging Routine Thyroid disease History of prior with IUGR Hypothyroidism, unspecified type Expected: 01/28/2025 (Approximate), Expires: 07/28/2025[facility] Work Phone: comment on above:Expected: 01/28/2025 (Approximate), Expires: 07/28/2025Start: 01-28-2025 End: 53-89-4526PY for pregnancyUS OB follow up transabdominal approach Imaging Routine Thyroid disease History of prior with IUGR Hypothyroidism, unspecified type Expected: 01/28/2025, Expires: 05/28/2025NOMS HealthcareComment on above:Expected: 01/28/2025, Expires: 05/28/2025Start: 01-28-2025 End: 65-21-9115Ypthijc encounter xumhqpkhj92/10/2025 8:30 AM EST Routine [facility] [address] [place], [id number] Santosh Marshall, DO [address] [place] [address] ArrivedNOMS Oral OBGYNComment on above:ArrivedStart: 01-14-2025 End: 39-54-2285Gvwpcak encounter procedureNOMS Augustina OBGYNComment on above: ArrivedStart: 01-01-2025 End: 30-49-4600Ggnklkm encounter procedureNOMS BCP OBStart: 12-31-2024 End: 69-73-7260Oyfdhbl encounter ybvjkkbav69/13/2025 11:00 AM EDT Routine [facility] [address] [address] Santosh Marshall, DO [address] [place] [address] NOMS Oral OBGYNStart: 12-31-2024 End: 11-44-8204Nralkgqpzzgu / ancillary services qlrlshfysm95/13/2025 10:30 AM EDT Ancillary Procedure [facility] [address] [address] [phone] Augustina OBGYNStart: 12-17-2024 End: 48-62-1894Olhrmjd encounter uqehgtmxv17/29/2025 3:00 PM EDT Office Visit [facility] [address] [address] Santosh Marshall, [address] [place] [address] NOMS BCP OBStart: 12-11-2024 End: 58-29-4081Kpvipmq encounter hzszizxor78/23/2025 2:15 PM EDT Appointment [facility] - [facility]trasound [address] [place] [address] [phone] Valley Hospital - UltrasoundStart: 12-10-2024 End: 56-70-8222QON panel - Blood by Automated countCBC Lab Routine Diabetes mellitus screening Expected: 12/10/2024 (Approximate), Expires: 12/10/2025[facility] Work Phone: comment on above:Expected: 12/10/2024 (Approximate), Expires: 12/10/2025Start: 12-10-2024 End: 36-62-5216Yxqplncecrf of glucose 1 hour after glucose challenge for glucose tolerance testGlucose tolerance, 1 hour Lab Routine Diabetes mellitus screening Expected: 12/10/2024 (Approximate), Expires: 12/10/2025[facility] HealthcareComment on above:Expected: 12/10/2024 (Approximate), Expires: 12/10/2025Start: 12-10-2024 End: 27-20-7329KO for pregnancyUS OB follow up transabdominal approach Imaging Routine Size of fetus inconsistent with dates in second trimester ([facility]) Expected: 12/10/2024, Expires: 04/11/2025[facility] HealthcareComment on above: Expected: 12/10/2024, Expires: 04/11/2025Start: 12-10-2024 End: 28-98-6437Zmzynjx encounter procedureNOMS Oral OBGYNComment on above: ArrivedStart: 11-27-2024 End: 74-33-9650Pfsurgl encounter obwzgrhyz27/09/2025 3:15 PM EDT Appointment [facility] [address] [place] [address] [phone] County Medical Center - UltrasoundStart: 11-20-2024 End: 41-55-7183Kxodlwd encounter awjcsfsnz72/02/2025 3:45 PM EDT Appointment [facility] [address] [place] [address] [phone]. [facility] of [facility] US ImagingStart: 11-19-2024 Influenza vaccinationInfluenza VaccineHighsmith-Rainey Specialty Hospitaltart: 11-12-2024 End: 26-95-8947Qcfyumo encounter procedureUMESH [place] OBGYNComment on above: ArrivedStart: 11-05-2024 End: 71-18-2751Yvccjoo encounter procedureWooster Community Hospital US ImagingStart: 10-21-2024 End: 51-80-7258OO MFM with or without consultUS [facility] with or without consult Imaging Routine Thyroid disease affecting History of priorpregnancy with IUGR Expected: 10/21/2024 (Approximate), Expires: 09/20/2025 [facility] Work Phone: comment on above:Expected: 10/21/2024 (Approximate), Expires: 09/20/2025Start: 10-15-2024 End: 43-81-7146Wlzpq fetoprotein, maternalAlpha fetoprotein, maternal Lab Routine 17 weeks gestation of ([facility]) Expected: 10/15/2024 (Approximate), Expires: 12/16/2024[facility] Work Phone: comment on above:Expected: 10/15/2024 (Approximate), Expires: 12/16/2024Start: 10-15-2024 End: 27-91-7990Ifvumwy encounter procedureNOMS CASSANDRA OBComment on above:Arrived Start: 09-17-2024 End: 36-19-5406Tmztwnfmqtw of glucose 1 hour after glucose challenge for glucose tolerance testGlucose tolerance, 1 hour Lab Routine Diabetes mellitus screening Expected: 09/17/2024 (Approximate), Expires: 09/17/2025[facility] Work Phone: comment on above:Expected: 09/17/2024 (Approximate), Expires: 09/17/2025Start: 09-17-2024 End: 35-11-1953Lqyinua encounter odthjdvzs79/30/2025 10:50 AM EDT Routine [facility] [address] [place] [phone] Santosh Marshall, DO [address] [place] [address] NOMS BCP OBStart: 08-17-2024 End: 58-10-2652QYJ/RhABO/Rh Lab Routine Missed menses , unspecified gestational age Expected: 08/17/2024 (Approximate), Expires: 08/17/2025N[facility]S HealthcareComment on above:Expected: 08/17/2024 (Approximate), Expires: 08/17/2025Start: 08-17-2024 End: 10-22-2010Vrzmy type and Indirect antibody screen panel - BloodType and screen Lab Routine Missed menses , unspecified gestational age Expected: 08/17/2024 (Approximate), Expires: 08/17/2025[facility] HealthcareComment on above:Expected: 08/17/2024 (Approximate), Expires: 08/17/2025Start: 08-17-2024 End: 76-78-8327Macqb of abuse panel - Urine by Screen methodRapid drug screen, urine Lab Routine , unspecified gestational age Encounter for supervision of normal first in first trimester Expected: 08/17/2024 (Approximate), Expires: 08/17/2025[facility] HealthcareComment on above:Expected: 08/17/2024 (Approximate), Expires: 08/17/2025Start: 08-09-2024 End: 72-12-1652IX Pelvis transvaginalUS OB transvaginal Imaging Routine Missed menses Expected: 08/09/2024, Expires: 11/09/2024[facility] Work Phone: comment on above:Expected: 08/09/2024, Expires: 11/09/2024Start: 25-56-3139XMYXH-19 ( season)COVID-19 ( season)[facility]: 60-69-4826KSW (#1)FLU (#1)[facility]: 34-68-5008Hvbxslrubk ScreeningDepression Screening [facility] SystemStart: 10-97-9812vnwjirmndqQopgonyistHrkijwsd:O4Qicuj: 74-21-5488Exxkfplqsbm observation [Identifier] in Cervix by Cyto stainPap Smear [facility] Hospital[facility]art: 74-22-2356Eubhcndsh for malignant neoplasm of cervixPap SmearHighsmith-Rainey Specialty Hospitaltart: 14-24-9247Sthdipfsv B (1 of 3 - 19+ 3-dose series)Hepatitis B (1 of 3 - 19+ 3-dose series)[facility] Start: 38-60-6128Rmdoa BMI ScreeningAdult BMI ScreeningCleveland Clinic [facility] Hospital Start: 80-00-7959OpeU (1 of 2 - MenB 2-Dose Series Bexsero)MenB (1 of 2 - MenB 2-Dose Series Bexsero)[facility]: 74-35-4390HMM (1 - 3-dose series)HPV (1 - 3-dose series)[facility]: 2011 Varicella (1 of 2 - 13+ 2-dose series)Varicella (1 of 2 - 13+ 2-dose series) [facility]: 06-52-1096Bqlbigk ScreeningTobacco Screening [facility]: 87-52-2304Owkxxmj Diphtheria and Pertussis Vaccines (1 - Tdap)Tetanus Diphtheria and Pertussis Vaccines (1 - Tdap)[facility]: 18-57-3442VFD (1 of 1 - Standard series)MMR (1 of 1 - Standard series)[facility] CenterBacteria identified in Urine by Culture Urine culture Microbiology Routine Missed menses Ordered: 08/17/2024[facility] HealthcareComment on above:Ordered: 08/17/2024BC W Auto Differential panel - BloodCBC and differential Lab Routine Missed menses , unspecified gestational age Ordered: 08/17/2024[facility] HealthcareComment on above:Ordered: 08/17/2024HLAMYDIA TRACHOMATIS (GENITO/STI)CHLAMYDIA TRACHOMATIS (GENITO/STI) Lab Routine STD exposure Ordered: 11/12/2024[facility] HealthcareComment on above: Ordered: 11/12/2024ytology Cervical or vaginal smear or scraping studyPap Smear Pathology and Cytology Routine Well woman exam with routine gynecological exam Ordered: 12/12/2023[facility] Healthcare Work Phone: comment on above:Ordered: 12/12/2023 End: [id number] Extraction and [facility] Work Phone: Comment on above:1 Occurrences starting 05/14/2024 until 05/14/2024, 1 completedHemoglobin A1c/Hemoglobin.total in BloodHemoglobin A1c Lab Routine Missed menses , unspecified gestational age Ordered: 08/17/2024[facility] HealthcareComment on above:Ordered: 08/17/2024Hepatitis B virus surface Ag [Presence] in Serum or Plasma by ImmunoassayHepatitis B surface antigen Lab Routine Missed menses , unspecified gestational age Ordered : 08/17/2024[facility] HealthcareComment on above:Ordered: 08/17/2024Hepatitis C virus Ab [Presence] in Serum or Plasma by ImmunoassayHepatitis C antibody Lab Routine Missed menses , unspecified gestational age Ordered: 08/17/2024[facility] HealthcareComment on above:Ordered: 08/17/2024HIV-1/HIV-2 antigen/antibody combination immunoassayHIV-1 and HIV-2 antibodies Lab Routine Missed menses , unspecified gestational age Ordered: 08/17/2024[facility] HealthcareComment on above:Ordered: 08/17/2024Neisseria gonorrhoeae DNA [Presence] in Unspecified specimen by FRANSISCO with probe detectionNeisseria gonorrhea DNA probe, direct Lab Routine STD exposure Ordered: 11/12/2024[facility] HealthcareComment on above:Ordered: 11/12/2024Reagin Ab [Presence] in Serum by RPRRPR Lab Routine Missed menses , unspecified gestational age Ordered: 08/17/2024[facility] HealthcareComment on above:Ordered: 08/17/2024Rubella antibody, IgGRubella antibody, IgG Lab Routine Missed menses , unspecified gestational age Ordered: 08/17/2024 [facility] HealthcareComment on above:Ordered: 08/17/2024SURESWAB(R) ADVANCED VAGINITIS PLUS, TMASURESWAB(R) ADVANCED VAGINITIS PLUS, TMA Pathology and Cytology Routine Vaginal discharge Ordered: 11/12/2024[facility] Healthcare Work Phone: comment on above:Ordered: 11/12/2024Thyrotropin [Units/volume] in Serum or PlasmaTSH Lab Routine Missed menses , unspecified gestational age Encounter for supervision of normal first in first trimester Ordered: 08/17/2024[facility] HealthcareComment on above:Ordered: 08/17/2024 End: 74-57-8735Wmdrfvyscym [Units/volume] in Serum or PlasmaTSH Lab Routine Hypothyroidism, unspecified type 9 Occurrences starting 11/12/2024 until 11/12/2025[facility] Healthcare Work Phone: comment on above:9 Occurrences starting 11/12/2024 until 11/12/2025US Pelvis transvaginalUS OB transvaginal Imaging Routine Missed menses 08/17/2024 9:27 AM [facility] Immunizations Immunization DateImmunizationNotesCare LykzhdqpRdwoqcuw87-10-5654gzlqvpg toxoid, reduced diphtheria toxoid, and acellular pertussis vaccine, adsorbedNancyzabemonty Thornton [phone]-NuuuxBrown [facility] Hospital08-02-2016 meningococcal B vaccine, fully recombinantNancyzabeth Norberto [phone]-ZunmlBrown [facility] Hospital06-27-2016 meningococcal ACWY vaccine, unspecified formulationNancyzabemonty Thornton [phone]-VhthhBrown [facility]06-27-2016 meningococcal B vaccine, fully recombinantNancyzabeth Norberto [phone]-MlzpcBrown [facility]04-04-2011 meningococcal ACWY vaccine, unspecified formulationNancyzabeth Norberto [phone]-NnisvBrown [facility] Hospital04-04-2011 tetanus toxoid, reduced diphtheria toxoid, and acellular pertussis vaccine, adsorbedElizabeth Norberto [phone]-EocvxBrown [facility]11-12-2009 influenza virus vaccine, unspecified formulationJacklyn Campos MD Work Phone: [phone] [place], [place] 0609207-28-2004DTaP, unspecified formulationElizabeth Norberto [phone]-QjbrqBrown [facility]07-28-2004 measles, mumps and rubella virus vaccineElizadaniel Thornton [phone]-FszeqBrown [facility] Hospital07-28-2004 poliovirus vaccine, unspecified formulationElisampson Thornton [phone]-Ztlri[address] [place], [place] 0[address]6411-15-2000DTaP, unspecified formulationElizadaniel Thornton [phone]-Muxtu[address] [place], [place] 0706411-08-1999 measles, mumps and rubella virus vaccineElizabemonty Thornton [phone]-Ygtkr[address] [place], [place] 0706411-08-1999 varicella virus vaccineElizadaniel Thornton [phone]-Wawxz[address] [place], [place] 0706407-23-1999DTaP, unspecified formulationElisampson Thornton [phone]-Epsri[address] [place] [address] Primary Tosj29-96-2795NRcC, unspecified formulationElizadaniel Thornton [phone]-Websj[address] [place] [address] Primary Bnhg87-43-2295DZyU, unspecified formulationYa Thornton [phone]-Dsnzb[address] [place], [place] [address]10-31-1998 hepatitis B vaccine, pediatric or pediatric/adolescent dosageElizadaniel Thornton [phone]-TpunwWexner Medical Center Primary CareNEGATED: Highlighted row has not occurred!54-35-7044jtjocfmmy virus vaccine, unspecified formulationDaniel Gray [phone]-CsqdtWexner Medical Center Digestive HealthNEGATED: Highlighted row has not occurred!92-32-0635wkxhzqvzm virus vaccine, unspecified formulationRitu Desai [phone]-MblxnWexner Medical Center Primary Care Payers DatePayer CategoryPayerPolicy [id number] [facility] [id number] Managed Care - [id number] [id number] Health [id number] 2023Medicaid [facility] MEDICAID [id number] Care Other (unspecified)[place] [address] [id number] 2.840.1.443673.3.57[id number] 2.160.1.888175.3.579.[id number] 2.0.1.664385.3.579.2.33198-90-7764Fdkmbod1019317 2.840.1.538038.3.579.2.86126-42-7828Zwdgzbg1445331 2.840.1.219127.3.579.2.81164-31-4301Sydvxow1439257 2.0.1.602526.3.579.2.86690-25-4132Jumyybm5791890 2.0.1.588018.3.579.2.75956-97-9512Drdkjia2878642 2.840.1.040720.3.579.2.45611-46-0515Pbffmwl1502107 2.840.1.673835.3.579.2.46878-97-1237Zfeducf3492006 2.840.1.191100.3.579.2.07969-56-3174Hauxtdx98117921 2.16840.1.744473.3.579.2.10712-17-1031Bjwgmmj79288773 2.840.1.374901.3.579.2.38586-38-3038Bwkcsvq12968271 2.16840.1.233232.3.579.2.77737-75-2776Hrjwjxn08534569 2.16840.1.196862.3.579.2.15125-87-4646Mksnfma24412028 2.16840.1.672289.3.579.2.64339-20-2886Bjjtmly53118953 2.16840.1.592296.3.579.2.97027-71-8022Xoihtzr00177381 2.16840.1.340403.3.579.2.66839-98-7435Dfhmsgf02217475 2..1.163293.3.579.2.40743-24-0357Hiqlajy41271249 2.840.1.563750.3.579.2.02767-75-4959Isetgkj50794528 2.840.1.782714.3.579.2.35145-53-7977Lvzhksh46286171 2.840.1.755707.3.579.2.87311-45-7305Kiqudqu68310723 2..1.029986.3.579.2.99111-32-9088Spiylma81698359 2.16840.1.417612.3.579.2.68897-45-5007Sknucpq41529741 2.16840.1.948976.3.579.2.05033-47-6399Mmzkuib85788918 2.16840.1.357507.3.579.2.18786-00-2175Vfxvyxg38361328 2.840.1.131272.3.579.2.45076-16-5210Ctljkzo734798121 2.16.840.1.316053.3.579.2.81923-78-4000Ogiywkf32863391 2.16.840.1.335494.3.579.2.54759-75-2281Gvqopur72303772 2.16.840.1.292984.3.579.2.81674-09-6707Cfhbolm98349049 2.16.840.1.171524.3.579.2.37637-94-7554Njoyogj12657553 2.16.840.1.633023.3.579.2.97482-45-7863Lhdgsdf02506229 2.16.840.1.634329.3.579.2.46732-13-8944Kfrqmbw28064548 2.16.840.1.749904.3.579.2.62894-08-0245Iejwzyb69131439 2.16.840.1.511837.3.579.2.93122-65-9266Fltsadt101557640 2.16840.1.060014.3.579.2.570234-11-2786Tstcvpo589618470 2.16.840.1.679644.3.579.2.393536-20-7468Elxeagr052292346 2.16.840.1.188079.3.579.2.954725-79-7934Jfiechw655640836 2.16.840.1.712689.3.579.2.327730-38-0218Suygetx918488003 2.16.840.1.249843.3.579.2.359416-68-5826Hmzhfyd62592937 2.16.840.1.113007.3.579.2.109614-72-3245Rgufthl56621048 2.16.840.1.455670.3.579.2.349431-34-7631Rxpojeh45368031 2.16.840.1.932187.3.579.2.542206-44-8082Tzbrtoy42403296 2.16.840.1.731151.3.579.2.488085-63-8508Rxxqmon23184840 2.16.840.1.845762.3.579.2.487116-18-5724Qtugifk94075919 2.16.840.1.133742.3.579.2.310403-56-5296Bwkynjc72136338 2.16.840.1.679499.3.579.2.919402-50-4730Hilyhuw43504894 2.16.840.1.483610.3.579.2.141780-33-0891Kpafsjj5662003 2.16.840.1.999359.3.579.2.968914-25-5870Nvbrvmh7757790 2.16.840.1.441196.3.579.2.900348-68-3605Obvb-klz13-25-4574Zoyiipx621358928822 35-12-1751Yngpbyo06933516990544194Bwtqgik7350122394874-13-5978Vhmidrl1350818659Kwskxrh1673939 2.0.1.824431.3.579.2.737Jrnbmjd524556536700 Social History DateTypeDetailFacilityStart: 05-03-2022 End: 55-70-3305Yinrpxr smoking statusNever smoked tobacco (finding)[facility] Primary CareStart: 36-18-1425Hbnfxeq smoking statusNeverOhiohealth Van Wert Hospital Primary CareStart: 07-12-2023 End: 22-05-1364Mnn Assigned At BirthFeHolzer Medical Center – Jacksontart: 12-12-2023 End: 20-79-2205Yrstqkpze beverage intakeCurrent drinker of alcohol (finding)[facility] CenterStart: 07-12-2023 End: 89-24-8193Egwzcwv of Social functionNOMS HealthcareStart: 49-48-1455Qyhtpmq Commentoccasional alcohol useNOMS HealthcareStart: 92-84-6547Cvv assigned at birthNot on fileJohn J. Pershing VA Medical CenterTobacco smoking status NHISTobacco smoking consumption unknownMcKitrick Hospitalexual OrientationGlenbeigh Hospital Start: 07-02-2009 End: 95-21-8488WshRqraxc (finding)[facility] Hospitaltart: 06-30-2024 PregnancyNOMS HealthcareStart: 38-74-5494Wgbqiua use and exposureSmokeless tobacco non-userRegency Hospital Cleveland East SystemStart: 09-24-2024 End: 31-40-3545Jfqozlslu beverage intakeEx-drinker (finding)[facility] SystemThe thought of harming myself has occurred to [facility] Medical Equipment Procedure CodeEquipment CodeEquipment Original TextEquipment IdentifierDates Glucose Test Strips, See Instructions, 1 EA, 3, Glucose Test Strips, [employer] [facility] [employer] [place] [employer] [facility], Supply, 166, cm, 10/08/22 15:10:00 EDT, Height/Length Dosing, 57.8, kg, 10/08/22 15:10:00 EDT, Weight DosingStart: 35-71-7687Jttlgjo, See Instructions, 100 lancet(s), 3, Lancets, [employer] [facility], Supply, 166, cm, 10/08/22 15:10:00 EDT, Height/Length Dosing, 57.8, kg, 10/08/22 15:10:00 EDT, Weight DosingStart: 91-54-7580Lmjufnp Test Strips, See Instructions, 1 EA, 3, Glucose Test Strips, [employer] [facility] [employer] [place] [employer] #[facility], Supply, 166, cm, 10/08/22 15:10:00 EDT, Height/Length Dosing, 57.8, kg, 10/08/22 15:10:00 EDT, Weight DosingStart: 44-48-9018Jplmtbb, See Instructions, 100 lancet(s), 3, Lancets, [employer] [employer] [facility] [employer] [facility], Supply, 166, cm, 10/08/22 15:10:00 EDT, Height/Length Dosing, 57.8, kg, 10/08/22 15:10:00 EDT, Weight DosingStart: 23-64-5325Dfrgvdk Test Strips, See Instructions, 1 EA, 3, Glucose Test Strips, [facility] [employer] [facility], Supply, 166, cm, 10/08/22 15:10:00 EDT, Height/Length Dosing, 57.8, kg, 10/08/22 15:10:00 EDT, Weight DosingStart: 24-89-6717Wudigry, See Instructions, 100 lancet(s), 3, Lancets, [employer] [facility] [employer] [facility], Supply, 166, cm, 10/08/22 15:10:00 EDT, Height/Length Dosing, 57.8, kg, 10/08/22 15:10:00 EDT, Weight DosingStart: 63-95-2277Epvmukc Test Strips, See Instructions, 1 EA, 3, Glucose Test Strips, [facility] [employer] [facility], Supply, 166, cm, 10/08/22 15:10:00 EDT, Height/Length Dosing, 57.8, kg, 10/08/22 15:10:00 EDT, Weight DosingStart: 74-34-7932Yxltery, See Instructions, 100 lancet(s), 3, Lancets, [employer] [facility] [employer] [facility], Supply, 166, cm, 10/08/22 15:10:00 EDT, Height/Length Dosing, 57.8, kg, 10/08/22 15:10:00 EDT, Weight DosingStart: 90-11-3770Wlcjixm Test Strips, See Instructions, 1 EA, 3, Glucose Test Strips, [facility] [employer] [facility], Supply, 166, cm, 10/08/22 15:10:00 EDT, Height/Length Dosing, 57.8, kg, 10/08/22 15:10:00 EDT, Weight DosingStart: 54-59-8161Cepntbi, See Instructions, 100 lancet(s), 3, Lancets, [employer] [facility] [employer] [facility], Supply, 166, cm, 10/08/22 15:10:00 EDT, Height/Length Dosing, 57.8, kg, 10/08/22 15:10:00 EDT, Weight DosingStart: 26-30-1637Upyrbwq Test Strips, See Instructions, 1 EA, 3, Glucose Test Strips, [employer] [facility] [employer] [place] [employer] [facility], Supply, 166, cm, 10/08/22 15:10:00 EDT, Height/Length Dosing, 57.8, kg, 10/08/22 15:10:00 EDT, Weight DosingStart: 22-22-2481Nmqcujg, See Instructions, 100 lancet(s), 3, Lancets, [employer] [facility] [employer] [facility] [employer] [place] [employer] [facility], Supply, 166, cm, 10/08/22 15:10:00 EDT, Height/Length Dosing, 57.8, kg, 10/08/22 15:10:00 EDT, Weight DosingStart: 83-14-5362Hqcgrdm Test Strips, See Instructions, 1 EA, 3, Glucose Test Strips, [employer] [facility] [employer] [place] [employer] [facility], Supply, 166, cm, 10/08/22 15:10:00 EDT, Height/Length Dosing, 57.8, kg, 10/08/22 15:10:00 EDT, Weight DosingStart: 22-16-5347Hmthscd, See Instructions, 100 lancet(s), 3, Lancets, [employer] [facility] [employer] [place] [employer] [facility], Supply, 166, cm, 10/08/22 15:10:00 EDT, Height/Length Dosing, 57.8, kg, 10/08/22 15:10:00 EDT, Weight DosingStart: 05-63-9945Ncgvgtw Test Strips, See Instructions, 1 EA, 3, Glucose Test Strips, [facility] [employer] [facility], Supply, 166, cm, 10/08/22 15:10:00 EDT, Height/Length Dosing, 57.8, kg, 10/08/22 15:10:00 EDT, Weight DosingStart: 72-70-9809Zaofwtt, See Instructions, 100 lancet(s), 3, Lancets, [employer] [facility] [employer] [place] [employer] [facility], Supply, 166, cm, 10/08/22 15:10:00 EDT, Height/Length Dosing, 57.8, kg, 10/08/22 15:10:00 EDT, Weight DosingStart: 93-80-4332Dicbeum Test Strips, See Instructions, 1 EA, 3, Glucose Test Strips, [employer] #37, Supply, 166, cm, 10/08/22 15:10:00 EDT, Height/Length Dosing, 57.8, kg, 10/08/22 15:10:00 EDT, Weight DosingStart: 94-95-3189Utkinsa, See Instructions, 100 lancet(s), 3, Lancets, [employer] #37, Supply, 166, cm, 10/08/22 15:10:00 EDT, Height/Length Dosing, 57.8, kg, 10/08/22 15:10:00 EDT, Weight DosingStart: 51-64-3106Nueqxld Test Strips, See Instructions, 1 EA, 3, Glucose Test Strips, [employer] #37, Supply, 166, cm, 10/08/22 15:10:00 EDT, Height/Length Dosing, 57.8, kg, 10/08/22 15:10:00 EDT, Weight DosingStart: 44-56-8059Kqflwgq, See Instructions, 100 lancet(s), 3, Lancets, [employer] #37, Supply, 166, cm, 10/08/22 15:10:00 EDT, Height/Length Dosing, 57.8, kg, 10/08/22 15:10:00 EDT, Weight DosingStart: 22-31-3861Bnxtcdz Test Strips, See Instructions, 1 EA, 3, Glucose Test Strips, [employer] [facility] [employer] [place] [employer] [facility], Supply, 166, cm, 10/08/22 15:10:00 EDT, Height/Length Dosing, 57.8, kg, 10/08/22 15:10:00 EDT, Weight DosingStart: 00-80-4834Euiuhbn, See Instructions, 100 lancet(s), 3, Lancets, [employer] #37, Supply, 166, cm, 10/08/22 15:10:00 EDT, Height/Length Dosing, 57.8, kg, 10/08/22 15:10:00 EDT, Weight DosingStart: 14-31-8551Nxgopbc Test Strips, See Instructions, 1 EA, 3, Glucose Test Strips, [employer]37, Supply, 166, cm, 10/08/22 15:10:00 EDT, Height/Length Dosing, 57.8, kg, 10/08/22 15:10:00 EDT, Weight DosingStart: 69-60-0880Oldjyan, See Instructions, 100 lancet(s), 3, Lancets, [employer] #37, Supply, 166, cm, 10/08/22 15:10:00 EDT, Height/Length Dosing, 57.8, kg, 10/08/22 15:10:00 EDT, Weight DosingStart: 00-19-3225Zdt daily as directed & as neededStart: 03-26-2021 Functional Status BodwMlsxxvahvbCfzrexOzfhkuxl01-35-4077Bpxiyucyyg StatusN/[facility] Jkwq74-88-6396Dobhzawfiz StatusN/[facility] Primary Xfws32-57-9841Ukpqdisuja StatusN/[facility] Primary Gmth08-98-0647Fsoqovbcwq StatusN/[facility] Digestive Health 69-06-3830Iegrocnlke StatusN/[facility] Primary Gxnr01-64-8479 Functional StatusN/[facility] Primary Care Clinical Notes 05-03-2022 to 01-28-2025 Note Date & CbklDwdbQipzpynm66-51-8324 History of Present illness Narrative* Abril Stone [...] nursing note reviewed. Exam conducted with a hog scalder present. Vitals: Estimated body mass index is 26.29 kg/m as calculated from the following: Height as of 11/29/22: 5' 5 . Weight as of this encounter: 158 lb. BP: 124/70 Patient's last menstrual period was 06/16/2024. Assessment/Plan ICD-10-CM 1. Third trimester ([facility]) Z34.93 POCT urinalysis dipstick manually resulted 2. 32 weeks gestation of ([facility]) Z3A.32 3. Thyroid disease E07.9 4. [...] of: Santosh Marshall DO documented in this encounterJohn J. Pershing VA Medical CenterXyjztekqdf54-52-8232 History of Present illness Narrative* Abril Stone [...] nursing note reviewed. Exam conducted with a hog scalder present. Vitals: Estimated body mass index is 26.71 kg/m as calculated from the following: Height as of 23: 5' 5 . Weight as of this encounter: 160 lb 8 oz. BP: 126/72 Patient's last menstrual period was 06/16/2024. Assessment/Plan ICD-10-CM 1. Third trimester ([facility]) Z34.93 POCT urinalysis dipstick manually resulted 2. 30 weeks gestation of ([facility]) Z3A.30 Return OB: Patient presents today for [...] of: Santosh Marshall DO documented in this encounterJohn J. Pershing VA Medical CenterBfgrppzbpl00-15-2544 History of Present illness Narrative* Daiana Villarreal [...] nursing note reviewed. Exam conducted with a hog scalder present. Vitals: Estimated body mass index is 25.38 kg/m as calculated from the following: Height as of 11/29/22: 5' 5 . Weight as of this encounter: 152 lb 8 oz. BP: 106/68 Patient's last menstrual period was 06/16/2024. ASSESSMENT & PLAN ICD-10-CM 1. Third trimester ([facility]) Z34.93 POCT urinalysis dipstick manually resulted 2. 28 weeks gestation of ([facility]) Z3A.28 Patient presents today for a routine obstetrics appointment. Patient is currently 28w2d with a Estimated Date of Delivery: 03/23/25. Patient had growth scan done prior to today's appointment. Patient will start NST/BPP at 32 weeks. Patient to return to clinic in 2 weeks. Documented by Daiana Villarreal LPN on behalf of: Santosh Marshall DO documented in this encounterJohn J. Pershing VA Medical CenterLzthahlpdi79-57-8978 History of Present illness Narrative* LIS Man [...] ASSESSMENT & PLAN ICD-10-CM 1. Second trimester ([facility]) Z34.92 POCT urinalysis dipstick manually resulted 2. 25 weeks gestation of ([facility]) Z3A.25 3. Diabetes mellitus screening Z13.1 [...] of: LIS Man documented in this encounterNOMS Jbofwaiogn18-72-4004 History of Present illness Narrative* Abril Stone, [...] nursing note reviewed. Exam conducted with a hog scalder present. Vitals: Estimated body mass index is 23.15 kg/m as calculated from the following: Height as of 11/29/22: 5' 5 . Weight as of this encounter: 139 lb 1.9 oz. BP: 110/72 Patient's last menstrual period was 06/16/2024. ASSESSMENT & PLAN ICD-10-CM 1. Second trimester ([facility]) Z34.92 POCT urinalysis dipstick manually resulted 2. 21 weeks gestation of ([facility]) Z3A.21 POCT urinalysis dipstick manually resulted [...] 4 weeks; She is followed closely per [facility] with history of hypothyroidism. Will obtain growth ultrasounds every 4 weeks and begin NST/BPP at 32 weeks. Documented by Abril Stone NP on behalf of: Santosh Marshall DO documented in this encounterJohn J. Pershing VA Medical CenterNmwphpogvr14-76-1944 History of Present illness Narrative* Nadira Salazar [...] risk Have you been seen here at [facility] in a previous ? Recent ER visits or hospitalizations? No Bring blood sugar log or meter with you today? (Please bring them with you for every visit at [facility]) NA Flu vaccine (Jan-May)? NA Any [...] Jacklyn Campos MD, FACOG (she/hers) Maternal- Medicine [facility] [address] [place] [address] This document was created with [employer] technology. Though I make every effort to review the dictation as it is transcribed, on occasion the spoken word can be misinterpreted by the technology leading to inappropriate words, phrases, or sentences. This note is addressed to the requesting provider as a consultation for clinical guidance. Specificmedical abbreviations are occasionally used and those are generally approved by the [place]?Board of?Obstetrics and?Gynecology?as well as?Lucy campos abbreviations. The above plan of care was based solely on the diagnoses for which a consultation was requested. ?More frequent testing may be indicated based on her other medical/obstetrical conditions. The management of other or medical conditions is beyond the scope of requested consultation and will c ontinue to be followed by the primary commercial ocean clammer or primary care provider. Note to patient: [...] opinion of the practitioner. documented in this encounterRiverside Methodist HospitalApsalar Kxgrxx77-67-7313 History of Present illness Narrative* LIS Man [...] ASSESSMENT & PLAN ICD-10-CM 1. Second trimester ([facility]) Z34.92 2. 17 weeks gestation of ([facility]) Z3A.17 POCT urinalysis dipstick manually resulted Alpha [...] behalf of: LIS Man documented in this encounterJohn J. Pershing VA Medical CenterRedetgseuk71-03-7936 History of Present illness Narrative* Aliya JeronimoKALE [...] nursing note reviewed. Exam conducted with a hog scalder present. Vitals: Estimated body mass index is 22.1 kg/m as calculated from the following: Height as of 11/29/22: 5' 5 . Weight as of this encounter: 132 lb 12.8 oz. BP: 112/70 Patient's last menstrual period was 06/16/2024. ASSESSMENT & PLAN ICD-10-CM 1. 13 weeks gestation of ([facility]) Z3A.13 2. Second trimester ([facility]) Z34.92 3. Thyroid disease E07.9 levothyroxine (Synthroid) [...] or undercooked meat, and stay away from [facility]. Patient has been consulted regarding any further do's and don'tsof . Patient voiced understanding and all questions and concerns were answered. Pt has h/o IUGR, thyroid disease, pt being referred to [facility] for level II ultrasound. Pt should be taking 125mcg of levothyroxine. Pt voiced understanding. Pt to start baby aspirin. Orders Placed This Encounter Procedures Glucose tolerance, 1 hour Follow Up: Patient is to return in 4 weeks for routine OB appointment. Documented by Aliya Jeronimo LPN on behalf of: Santosh Marshall DO documented in this encounterJohn J. Pershing VA Medical CenterTbpjkdupqz28-55-0862 History of Present illness Narrative* Carmita Tapia, RETAIL CUSTOMER SERVICE REPRESENTATIVE - 08/17/2024 9:30 AM EDT Reason for [...] or undercooked meat, and stay away from [facility]. Patient has also been advised to not change litter boxes and eat 6 small meals a day. Patient has been consulted regarding the do's and don'ts ofpregnancy. Patient was given labs and all questions and concerns were answered. Patient was sent in Magnesium for headaches. Patient given Lowgap labs to do with initial labs along [...] by: Carmita Tapia LPN documented in this encounterJohn J. Pershing VA Medical [id number] NotePatient Education Endocrinology Hypothyroidism Hypothyroidism is when [...] Follow these instructions at home: ??? Take oiuv-byq-eueiare and prescription medicines only as told by [...] Reviewed: 03/09/2022 [employer] Patient Education ? 2023 [employer] Obstetrics and Gynecology Health Maintenance, Female Adopting a healthy lifestyle and getting preventive care are important in promoting health and wellness. Ask your health care provider about: ??? The right schedule for you to have regular tests and exams. ??? Things (more content not included)...[facility]04-17-2025 NotePatient Education ENT How to Perform [...] cannot use soap and water, use hand supervisor in circuit testing. 2. Wash your device using the directions [...] provider. Document Revised: 08/24/2021 Document Reviewed: 08/24/2021 [employer] Patient Education ? 2023 [employer]. Infectious Disease Sinus Infection, Adult A sinus [...] this diagnosed? Your s (more content not included)...[facility]09-23-2024 History of Present illness Narrative* Daiana [...] Diagnosis Date BMI 23.0-23.9, adult Thyroid disease ([facility]) Well woman exam HISTORY PAST MEDICAL [...] nursing note reviewed. Exam conducted with a hog scalder present. Vitals: Estimated body mass index is [...] of: Santosh Marshall DO documented in this encounter[facility] [id number] Hospital Discharge instructions Patient Education 08/08/2023 16:25:47 [...] to help relieve pain. General instructions Take wcnf-lkn-zycvpyn and prescription medicines only as told by [...] provider. Document Revised: 10/22/2020 Document Reviewed: 10/22/2020 [employer] Patient Education 2022 [employer]. 08/08/2023 16:25:44 Hemorrhoids Hemorrhoids Hemorrhoids are swollen [...] 3 times a day. General instructions Take dsei-seo-ozapiww and prescription medicines only as told by [...] provider. Document Revised: 09/16/2021 Document Reviewed: 09/16/2021 [employer] Patient Education 2022 [employer]. 08/08/2023 16:25:43 Urinary Tract Infection, Adult Urinary [...] Treatment for this condition includes: Antibiotic medicine. Etsg-wns-lckecrb medicines to treat discomfort. Drinking enough water [...] Follow these instructions at home: Medicines Take sgqb-mem-ozsvmxk and prescription medicines only as told by [...] provider. Document Revised: 10/17/2020 Document Reviewed: 10/17/2020 [employer] Patient Education 2022 [employer]. 08/08/2023 16:25:41 Hypothyroidism Hypothyroidism Hypothyroidism is when [...] away. Follow these instructions at home: Take feau-qeo-rxnawqk and prescription medicines only as told by [...] provider. Document Revised: 03/09/2022 Document Reviewed: 03/09/2022 [employer] Patient Education 2022 [employer]. [facility] 05-20-2024 Evaluation + Plan note Future Scheduled Tests Laboratory* UA with Cult Rflx 08/08/23 * CBC w/ Auto Diff 02/08/24 * Comprehensive Metabolic Panel 02/08/24 * Thyroid Stimulating Hormone 02/08/24 * Thyroid Stimulating Hormone 05/16/23 * Free T4 02/08/24 * Free T4 05/16/23 [facility] 12-20-2023 Hospital Discharge instructions Patient [...] including vitamins, herbs, eye drops, creams, and htfh-ufl-lxbmyjj medicines. ?Whether you are or may be [...] provider. Document Revised: 11/18/2021 Document Reviewed: 10/10/2020 [employer] Patient Education 2022 [employer]. 03/09/2023 08:08:48 Urinary Tract Infection, Adult Urinary [...] Treatment for this condition includes: Antibiotic medicine. Jmhu-xkl-ifnoyhz medicines to treat discomfort. Drinking enough water [...] Follow these instructions at home: Medicines Take lbxy-krs-mhswgfp and prescription medicines only as told by [...] provider. Document Revised: 10/17/2020 Document Reviewed: 10/17/2020 [employer] Patient Education 2022 [employer]. 03/09/2023 08:08:46 Hypothyroidism Hypothyroidism Hypothyroidism is when [...] away. Follow these instructions at home: Take uakm-dxg-cwncnbv and prescription medicines only as told by [...] provider. Document Revised: 03/09/2022 Document Reviewed: 03/09/2022 [employer] Patient Education 2022 [employer]. Follow Up Care 03/07/2023 12:06:45 With:Ya Wang FAM, [facility] Address: [address], [address] [place] [phone] Business (1) When:05/25/2023 Comments:for f/u [facility] 12-04-2023 Hospital Discharge instructions Patient [...] Follow these instructions at home: Medicines Take tmzj-sjm-npzpapf and prescription medicines only as told by [...] provider. Document Revised: 10/17/2020 Document Reviewed: 10/17/2020 [employer] Patient Education 2022 [employer]. Follow Up Care 02/21/2023 08:19:47 With:Ya Wang FAM, MED Address: [address] [place], [place] [id number] Business (1) When:05/25/2023 Comments:for f/u [facility] 09-12-2023 Hospital Discharge instructions Patient [...] Bulgur wheat. Millet. Quinoa. Bran muffins. Popcorn. Tewksbury wafer crackers. Meats and other proteins Pax beans, kidney beans, and díaz beans. Soybeans. [...] Cream cheese. Sour cream. Fats and oils [place]ahan. Beverages Soft drinks. Other foods Cakes and [...] Document Reviewed: 07/10/2020 [employer] Patient Education 2022 [employer]. Follow Up Care 11/11/2022 12:10:41 With:Daniel Gray CNP Address: When:2 weeks Comments:Following EGD/Colonoscopy. [facility] 08-24-2023 Hospital Discharge instructions Patient [...] per serving. Talk with a diet and technical information specialist (dietitian) if you have questions about [...] Bulgur wheat. Millet. Quinoa. Bran muffins. Popcorn. Tewksbury wafer crackers. Meats and other proteins Pax, kidney, and díaz beans. Soybeans. Split peas. [...] Cream cheese. Sour cream. Fats and oils [place]ahan. Beverages Soft drinks. Other foods Cakes and [...] 03/07/2006 Document Revised: 01/09/2018 Document Reviewed: 01/09/2018 [employer] Patient Education 2020 [employer]. 11/11/2022 01:00:54 Hemorrhoids Hemorrhoids Hemorrhoids are swollen [...] 3 times a day. General instructions Take xqwb-wfb-qoybrvd and prescription medicines only as told by [...] provider. Document Revised: 09/16/2021 Document Reviewed: 09/16/2021 [employer] Patient Education 2022 [employer]. Follow Up Care 11/08/2022 14:59:04 With:Ya Wang FAM, [facility] Address: [address] [place] [address] [facility] (1) When:Within 3 Month(s) Comments:3 mo f/u [facility] 02-13-2023 Hospital Discharge instructions Patient [...] away. Follow these instructions at home: Take nstp-efw-bspaxvs and prescription medicines only as told by [...] 03/07/2006 Document Revised: 02/17/2018 Document Reviewed: 02/15/2018 [employer] Patient Education [employer]. Follow Up Care 04/05/2022 12:35:49 With:Ritu Desai CNP Address: [address] [place] [phone] When:1 year Comments:or sooner if needed. [facility] Evaluation + Plan note No data available for this section [facility] Evaluation + Plan note Future Appointments Appointment Date:11/30/2022 12:00:00 PM Scheduled Provider:Daniel Gray CNP Location:[facility] [place] [facility] Appointment Type:BAD New Patient Appointment Date:04/04/2023 01:00:00 PM Scheduled Provider:Ya Wang Location:[facility] Appointment Type: Open Future Scheduled Tests Laboratory* TSH With T4fr Reflex 10/08/22 [facility] Evaluation + Plan note Future Appointments Appointment Date:04/04/2023 01:00:00 PM Scheduled Provider:Ya Wang Location:[facility] Appointment Type:FM Open Future Scheduled Tests Laboratory* TSH With T4fr Reflex 10/08/22 [facility] Evaluation + Plan note Future Appointments Appointment Date:07/25/2023 10:00:00 AM Scheduled Provider:Ya Wang Location:[facility] Appointment Type:FM Open Future Scheduled Tests Laboratory* T3 Free 02/21/23 * Thyroid Stimulating Hormone 02/21/23 * Free T4 02/21/23 [facility] Evaluation + Plan note Future Appointments Appointment Date:07/25/2023 10:00:00 AM Scheduled Provider:Ya Wang Location:[facility] Appointment Type:FM Open Diagnostic Tests Pending * Urine Culture 02/21/23 Future Scheduled Tests Laboratory* T3 Free 02/21/23 * Thyroid Stimulating Hormone 02/21/23 * [facility] T4 [facility] Appointment Date:07/25/2023 10:00:00 AM Scheduled Provider:Ya [facility] Type:[facility] Open Future Scheduled Tests Laboratory* T3 Free 02/21/23 * Thyroid Stimulating Hormone 02/21/23 * Free T4 02/21/23 Radiology* US Retroperitoneal Complete 03/09/23 [facility] Evaluation + Plan note Future Appointments Appointment Date:07/25/2023 10:00:00 AM Scheduled Provider:Ya Wang [facility] Appoint[facility] Type:FM Open Diagnostic Tests Pending * Urine Culture 03/09/23 Future Scheduled Tests Laboratory* T3 Free 02/21/23 * Thyroid Stimulating Hormone 02/21/23 * Free T4 02/21/23 Radiology* US Retroperitoneal Complete [facility]09[facility]23 [facility] App[facility]ments Appointment Date:07/12/2023 09:30:00 AM Scheduled Provider:OPAL LUZ PA-C Location:[facility] Appointment Type:URO New Patient Appointment Date:07/25/2023 10:00:00 AM Scheduled Provider:Ya Wang [facility] Open Diagnostic Tests Pending * T3 Free [facility]22/23 [facility] App[facility]ments Appointment Date:07/12/2023 09:30:00 AM Scheduled Provider:OPAL LUZ PA-C Location:[facility] Appointment Type:URO New Patient Appointment Date:07/25/2023 10:00:00 AM Scheduled Provider:Ya Wang [facility] Type:FM Open [facility] Future Appointments Appointment Date:07/25/2023 10:00:00 AM Scheduled Provider:Ya Wang Location:[facility] Appointment Type:FM Open Future Scheduled Tests Laboratory* Thyroid Stimulating Hormone 05/16/23 * Free T4 05/16/23 [facility] evaluation + Plan note Future Scheduled Tests Laboratory* CBC w/ Auto Diff 02/08/24 * Comprehensive Metabolic Panel 02/08/24 * Thyroid Stimulating Hormone 02/08/24 * Free T4 02/08/24 [facility] App[facility]ments Appointment Date:07/09/2024 08:00:00 AM Scheduled Provider:Marta Rivas Location:[facility] Appointment Type:FM New Patient - Adult Future Scheduled Tests Laboratory* CBC w/ Auto Diff 02/08/24 * Comprehensive Metabolic Panel 02/08/24 * Thyroid Stimulating Hormone 02/08/24 * Free T4 02/08/24 [facility] Evaluation note* Diagnosis Well woman exam with routine gynecological exam Routine gynecological examination documented [facility] encounter [facility] Diagnosis Family history of autism Family history of psychiatric condition [facility] Diagnosis Missed menses , unspecified gestational age Encounter for supervision of normal first in first trimester Nonintractable headache, unspecified chronicity pattern, unspecified headache type documented in this encounter [facility]* Diagnosis 13 weeks gestation of (HHS-HCC) Second trimester (HHS-HCC) state, incidental Thyroid disease Unspecified disorder of thyroid History of prior with IUGR Diabetes mellitus screening Screening for diabetes mellitus documented in this encounter [facility]* Diagnosis Thyroid disease affecting - Primary History of prior with IUGR [facility] Diagnosis Second trimester (HHS-HCC) state, incidental 17 weeks gestation of (HHS-HCC) documented in this encounter [facility] HealthcareEvaluation note* Diagnosis 20 weeks gestation [...] rupture of membranes documented [facility]* Diagnosis 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 trimester- Primary History of prior with IUGR History of premature rupture of membranes documented [facility]* Diagnosis Hypothyroidism, unspecified type- Primary Second trimester (HHS-HCC) state, incidental 21 weeks gestation of (HHS-HCC) Vaginal discharge Leukorrhea, not specified as infective STD exposure documented in this encounter [facility]* Diagnosis Size of fetus inconsistent with dates in second trimester (HHS-HCC)- Primary Second trimester (HHS-HCC) state, incidental 25 weeks gestation of (HHS-HCC) Diabetes mellitus screening Screening for diabetes mellitus documented in this encounter [facility] HealthcareEvaluation note* Diagnosis Third trimester (HHS-HCC) state, incidental 28 weeks gestation of (HHS-HCC) documented in this encounter [facility] HealthcareEvaluation note* Diagnosis Third trimester (HHS-HCC) state, incidental 30 weeks gestation of (HHS-HCC) documented in this encounter [facility]* Diagnosis Third trimester (HHS-HCC) state, incidental 32 weeks gestation of (HHS-HCC) Thyroid disease Unspecified disorder of thyroid History of prior with IUGR Hypothyroidism, unspecified type [facility] No data available for this section [facility] filedocumented in this encounter [facility] filedocumented in this [facility] filedocumented in this encounter [facility]Not on filedocumented in this encounter [facility] No data available for this section [facility] Summary Purpose Family History No [...] InactivatedComments04/21/2021 7:00 PM2 1:57 PMDate Activated Date PoeqpvsdnsgKjercosx39/14/2021 5:01 PM03/26/2021 7:46 PMDate ActivatedDate InactivatedComments05/30/2021 7:15 AM06/01/2021 2:55 PMDate ActivatedDate InactivatedComments05/12/2021 1:10 PM2 2:16 PMDate ActivatedDate InactivatedComments04/21/2021 7:00 PM2 1:57 PMDate ActivatedDate MhwizfoseeyXgjnhwmt54/14/2021 5:01 PM03/26/2021 7:46 PM Additional Source Comments INFORMATION SOURCE (unrecogn ized section and content) DATE CREATED AUTHOR 11/15/2021 [facility] DATE CREATED AUTHOR AUTHOR'S ORGANIZ ATION 09/09/2023 [facility] DATE CREATED AUTHOR AUTHOR'S ORGANIZ ATION 05/21/2024 [facility] DATE CREATED AUTHOR AUTHOR'S ORGANIZ ATION 07/06/2024 [facility] DATE CREATED AUTHOR AUTHOR'S ORGANIZ ATION 07/10/2024 [facility] DATE CREATED AUTHOR AUTHOR'S ORGANIZ ATION 07/13/2024 [facility] DATE CREATED AUTHOR AUTHOR'S ORGANIZ ATION 11/21/2024 [facility] DATE CREATED AUTHOR AUTHOR'S ORGANIZ ATION 12/12/2024 [facility] DATE CREATED AUTHOR AUTHOR'S ORGANIZ ATION 01/28/2025 [facility] EPIC Patient Care team informatio n (unrecognized section and content) Team MemberRelationshipSpecialtyStart DateEnd Date Staci White MD [address] [place] [address] PCP - GeneralInternal Medicine11/29/22Team MemberRelationshipSpecialtyStart Date End Date Staci White MD [address] [place] [address] PCP - GeneralInternal Medicine11/29/22Team MemberRelationshipSpecialtyStart Date End Date Staci White MD [address] [place] [address] PCP - GeneralInternal Medicine11/29/22Team MemberRelationshipSpecialtyStart Date End [place] [address] Attending ProviderMedical Clinical Genetics05/14/24Team MemberRelationship SpecialtyStart DateEnd Date Staci White MD [address] [place], [place] [address] PCP - GeneralInternal Medicine11/29/22am MemberRelationshipSpecialtyStart Date End Date Staci White MD [address] [place] [address] PCP - GeneralInternal Medicine11/29/22am MemberRelationshipSpecialtyStart Date End Date Staci White MD [address] [place] [address] PCP - GeneralInternal Medicine11/29/22am MemberRelationshipSpecialtyStart Date End Date Staci White MD [address] [place] [address] PCP - GeneralInternal Medicine11/29/22am MemberRelationshipSpecialtyStart Date End Date Staci White MD PCP - GeneralInternal Medicine04/07/21am MemberRelationshipSpecialtyStart Date End Date Staci White MD [address] [place] [address] PCP - GeneralInternal Medicine11/29/22am MemberRelationshipSpecialtyStart Date End Date Staci White MD PCP - GeneralInternal Medicine04/07/21am MemberRelationshipSpecialtyStart Date End Date Staci White MD PCP - GeneralInternal Medicine04/07/21Te MemberRelationshipSpecialtyStart Date End Date Staci White MD [address] [place] [address] [facility] - [facility]11/29/22Te MemberRelationshipSpecialtyStart Date End Date Staci White MD [address] [place] [address] PCP - GeneralInternal [facility]11/29/22Te MemberRelationshipSpecialtyStart Date End Date Staci White MD [address] [place] [address] [facility]11/29/22Te MemberRelationshipSpecialtyStart Date End Date Staci White MD [address] [place] [address] [facility]11/29/22Te MemberRelationshipSpecialtyStart Date End Date Staci White MD [address] [place] [address] PCP - [facility]Hon[facility] Centern[facility]11/29/22 Reason for Visit (unrecogniz ed section [...] BE BASED ON THE PRIMARY CLINICAL RECORDS. [facility] [employer] [facility]. provides no warranty or guarantee of the accuracy or completeness of information in this document.
[2025-02-08 18:13] VITALS: BP 102/69; PULSE 105; TEMP 36.6
== END 2025-02-08 18:35 | disposition home or self-care (01) ==
LOC: FBCO 17:54 → FBC 18:08
PROVIDERS: Visit Provider Obstetrics & Gynecology
DX: O99.283 Endocrine, nutritional and metabolic diseases complicating pregnancy, third trimester (principal); E07.9 Disorder of thyroid, unspecified; Z3A.00 Weeks of gestation of pregnancy not specified
CPT/HCPCS: 59025

== ENCOUNTER 2025-02-12 15:50 | Observation (INO) | payer BC, SELFPAY ==
--- OUTSIDE RECORDS SUMMARY | 2025-02-04 08:00 | XMS_ITS | Encounter Summary ---
Author Organization [facility] Address [address] [place] [address] Care Team Providers Care Sumo Wrestler Name Role Phone Carrillo Wihte MD Primary Care Provider [phone] Encounter Details DateTypeDepartmentCare Team (Latest Contact Info)Ipvxjeyulwv04/17/2025 8:00 AM ESTAncillary Procedure [facility] [address] [place] [address] [place] [address] Thyroid disease; History of prior with IUGR ; Hypothyroidism, unspecified type Social History Tobacco UseTypesPacks/DayYears UsedDateSmoking Tobacco: NeverAlcohol UseStandard Drinks/WeekCommentsYes0 (1 standard drink = 0.6 oz pure alcohol)occasional alcohol useEstimated Date of CblcelywFmsrjyctTef356Based on last menstrual period of 06/16/2024Sex and Gender InformationValueDate RecordedSex Assigned at BirthNot on fileLegal UhrHduecl84/15/2023 10:14 PM EDTGender IdentityNot on fileSexual OrientationNot on filedocumented as of this encounter Plan of Treatment DateTypeDepartmentCare Team (Latest Contact Info)Gmzgsdipjxx15/26/2025 10:50 AM ESTRoutine [facility] [address] [place] [id number] Erum Guidry PA [address] [place], [place] [id number] documented as of this encounter Procedures Procedure NamePriorityDate/TimeAssociated DiagnosisCommentsUS OB FOLLOW UP TRANSABDOMINAL XVHPKZUYYnwcyha46/17/2025 8:26 AM EST Thyroid disease History of prior with IUGR Hypothyroidism, unspecified type documented in this encounter Results * OB follow up transabdominal approach (02/04/2025 8:26 AM EST)Anatomical RegionLateralityModalityBodyUltrasoundSpecimen (Source)Anatomical Location / LateralityCollection Method / VolumeCollection TimeReceived Time02/06/2025 11:57 AM EST Impressions 02/06/2025 12:45 PM EST Single, live intrauterine , current sonographic age of 32 weeks and 0 days, with an estimated date of delivery of April 01, 2025 (prior RENATO March 27, 2025). * ??Estimated Weight (g) by Percentile is based upon an accurate estimated age based onlast menstrual period. ?? TRANSCRIBED BY: ? ELECTRONICALLY SIGNED BY: Hermelindo Padilla MD Narrative 02/06/2025 12:45 PM EST FINDINGS: Comparison December 31, 2024. A single, live intrauterine is present with normal cardiac rate of 161 beats per minute. Normal activity and amniotic fluid volume. Amniotic fluid index is 16 cm. ??Morphology is grossly normal. The current sonographic age is 32 weeks and 0 days, based on the following measurements: ?BPD ? 7.7 cm (30 weeks, 5 days) ?Head Circumference ?28.3 cm (31 weeks, 0 days) ?Abdominal Circumference ?29.2 cm (33 weeks, 1 day) ?Femur Length ?6.4 cm (32 weeks, 6 days) ?Presentation ? Cephalic ? Weight (g) by Percentile ??23.7 % * ??(prior 36.7%) These measurements result in an estimated date of delivery of April 01, 2025. ?? The current estimated weight is 1 grams (4 pounds, 7 ounces). ?? Procedure Note Hermelindo Padilla MD - 02/06/2025 FINDINGS: Comparison December 31, 2024. A single, live intrauterine is present with normal cardiacrate of 161 beats per minute. Normal activity and amniotic fluidvolume. Amniotic fluid index is 16 cm. Morphology is grossly normal. Thecurrent sonographic age is 32 weeks and 0 days, based on the followingmeasurements: BPD 7.7 cm (30 weeks, 5 days) Head Circumference 28.3 cm (31 weeks, 0 days) Abdominal Circumference 29.2 cm (33 weeks, 1 day) Femur Length 6.4 cm (32 weeks, 6 days) Presentation Cephalic Weight (g) by Percentile 23.7 % * (prior 36.7%) These measurements result in an estimated date of delivery of March. The current estimated weight is 1 grams (4 pounds, 7ounces). IMPRESSION: Single, live intrauterine , current sonographic age of 32 weeksand 0 days, with an estimated date of delivery of April 01, 2025 (priorEDD March 27, 2025). * Estimated Weight (g) by Percentile is based upon an accurateestimated age based on last menstrual period. TRANSCRIBED BY: ELECTRONICALLY SIGNED BY: Hermelindo Padilla MD Authorizing ProviderResult TypeResult StatusKrdelaware hospital for the chronically illa Bertha NPIMG OB US PROCEDURESFinal Result documented in this encounter Visit Diagnoses Diagnosis Thyroid disease Unspecified disorder of thyroid History of prior with IUGR Hypothyroidism, unspecified type documented in this encounter Care Teams Team MemberRelationshipSpecialtyStart DateEnd Date Carrillo White MD [address] [place] [address] PCP - GeneralInternal Medicine11/29/22documented as of this encounter
--- NOTE | 2025-02-12 | US_ITS ---
[address] [address] Patient Name: YANA PAYNE MRN: [id number] date: 2000 Sex: F Assigned Patient Location: [facility] Current Patient Location: [facility] Accession/Order Number: [id number] Exam Date: 02/12/2025 14:55 Report Date: 02/12/2025 20:46 At the request of: SHAUNA NAIR DO Procedure: US OB BPP w non-stress Ultrasound biophysical profile COMPARISON: 02/05/2025 INDICATION: Hypothyroidism FINDINGS IMPRESSION: Cephalic position. heart rate 153 bpm. CALVIN 17.4 cm. Biophysical profile score 8/8 Impression dictated by: Ramakrishna Santiago M.D. 02/12/2025 8:46 PM Dictation Location: [place] [address] Electronically authenticated by: [id number] Y Date: 02/12/2025 20:46
--- OUTSIDE RECORDS SUMMARY | 2025-02-12 14:53 | XMS_ITS | Clinical Summary ---
Author Organization [facility] Address [facility] [id number] [place] [address] Care Team Providers Care Escape Wheel Tooth Cutter Name Role Phone Carrillo White MD Primary Care Provider [phone] Allergies No known active allergies Medications MedicationSigDispense QuantityRefillsLast FilledStart DateEnd DateStatus PNV no.95/ferrous fum/folic ac ( ORAL) Take by mouth in the morning.Active FREESTYLE LITE METER kit See Admin Instructions.03/26/2021ctive freestyle 28 gauge lancets Use daily as directed & as qtfldb3603/26/2021ctive acetaminophen (TYLENOL EXTRA STRENGTH) 500 mg tablet Take 2 tablets (1,000 mg total) by mouth every 8 (eight) hours as needed for pain. 30 tablet 06/01/2021ctive Additional Information Patient not taking.Reported on 11/05/2024 levothyroxine (SYNTHROID, LEVOTHROID) 100 MCG tablet Take 125 mcg by mouth in the morning.Active magnesium oxide (MAGOX) 400 mg tablet Take 1 tablet (400 mg total) by mouth in the morning.Active aspirin 81 mg Take 1 tablet (81 mg total) by mouth in the morning.Active Active Problems ProblemNoted DateDiagnosed DateLow-lying pksgqxur97/18/2025History of prior with IUGR votaufg5011/05/2024Family history of kznhsm3911/05/2024History of gestational diabetes in prior , currently tujdtshk42/18/2025History of prior with short cervix, currently ztokfkpm26/18/2025History of premature rupture of tuasebofz98/18/2025Hypothyroidism affecting xpkrazuzh80/18/2021 Overview (05/19/2021): 03/03/21 TSH 1.91 04/11 TSH not completed () On levothyroxine 125mcg Estimated Date of OsdaeigdYculpatcOwb25/03/2026ased on last menstrual period of 06/16/2024 Resolved Problems ProblemNoted DateDiagnosed DateResolved DatePreterm premature rupture of pkyzgdbfk37Diet controlled gestational diabetes mellitus (GDM) in third rnkcmsxja32Short cervix during in third bzpfcizra14 Overview (05/19/2021): Vaginal progesterone ANCS 03/03/21 and 03/04/21, rescue 05/12/21 and 05/13/21. laborPreterm uterine contractions in third trimester, qvherdvwdo00Pregnancy affected by growth amiulsnyixv29 Overview (05/19/2021): 05/05/21: EFW 3%, AC 8%, nl DVP. Normal dopplers Encounters DateTypeDepartmentCare ThrdPbctdbcohie29/23/2025 2:15 PM EDT - 12/11/2024 11:59 PM EDTHospital Encounter [facility] - [facility]ound [address] [place] [address] 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 trimester; History of prior with IUGR ; History of premature rupture of membranes Discharge Disposition: Home12/11/20248311Wvnsyp98/09/2025 3:15 PM EDT - 11/27/2024 11:59 PM EDTHospital Encounter [facility] - [facility]ound [address] [place] [address] 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 trimester; History of prior with IUGR ; History of premature rupture of membranes Discharge Disposition: Home11/27/20245462Vksxxb91/02/2025 3:45 PM EDT - 11/20/2024 11:59 PM EDTHospital Encounter [facility] Imaging [address] [place] [address] 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 trimester; History of prior with IUGR ; History of premature rupture of membranes Discharge Disposition: Home11/20/2024Travelfrom Last 3 Months Immunizations ImmunizationAdministration DatesNext JqhVgpg9905/26/2021 Family History Medical HistoryRelationNameCommentsDiabetesBrotherJordanDiabetesFather HypertensionFatherColon cancerMaternal GrandmotherEllenDiabetesMaternal GrandmotherEllenHypertensionMaternal GrandmotherEllenDepressionMotherTina DiabetesMotherTinaMental illnessMotherTinaStomach cancerMotherTinaBreast cancer Paternal Aunt 1SueMiscarriages / StillbirthsPaternal Aunt 2AuntAsthmaPaternal GrandfatherRichardDiabetesPaternal GrandfatherRichardHypertensionPaternal GrandfatherRichardBreast cancerPaternal GrandmotherMarilynColon cancerPaternal GrandmotherMarilynRelationNameStatusCommentsBrotherJordanFatherMaternal GrandmotherEllenMotherTinaDeceasedPaternal Aunt 1SuePaternal Aunt 2AuntPaternal GrandfatherRichardPaternal GrandmotherMarilyn Social History Tobacco UseTypesPacks/DayYears UsedDateSmoking Tobacco: NeverSmokeless Tobacco: NeverAlcohol UseStandard Drinks/WeekCommentsNot Currently0 (1 standard drink = 0.6 oz pure alcohol)Houston Depression ScaleAnswerDate Recorded Houston Depression Scale Wdsdc88106/04/2021The thought of harming myself has occurred to me.Never06/04/2021Hunger ScreeningAnswerDate Recorded Within the past 12 months we worried whether our food would run out before we got money to buy more.Never True11/05/2024Within the past 12 months the food we bought just didn't last and we didn't have money to get more.Never True 11/05/2024Estimated Date of PxwpklagCpibwjqoLtr96/03/2026Based on last menstrual period of 06/16/2024Sex and Gender InformationValueDate RecordedSex Assigned at BirthNot on fileLegal MjvUilfvq58/15/2021 10:50 AM EDTGender IdentityNot on fileSexual OrientationNot on file Last Filed Vital Signs Vital SignReadingTime TakenCommentsBlood Cvdmjpfl98/5808 11:51 AM EDT Yzmxm337811/05/2024 11:51 AM TXTMojtxmlffno95.9 ??C (98.4 ??F)06/04/2021 11:19 AM EDTRespiratory Qpgz544606/01/2021 9:10 AM EDTOxygen Wljkwtrvyo86%05/19/2021 10:27 AM ESTInhaled Oxygen Concentration--Mgauqm23.8 kg (138 lb 6.4 oz)11/05/2024 11:51 AM QXETwxlmi006.1 cm (5' 5 )11/05/2024 11:51 AM EDTBody Mass Index23.03 11/05/2024 11:51 AM EDT Plan of Treatment Health MaintenanceDue DateLast DoneCommentsPap Smear2019Depression Pfzzojird91/Influenza Vpvygcf95/02/2009RSV ( or age 60+ yrs) (1 - Risk 1-dose series)01/26/2025dult BMI Screening Tobacco Ovfjlhetg81DTaP,Tdap and Td Vaccines (8 - Td or Tdap)/10/2021, 06/22/2010, 10/16/2003, Additional history exists Medical Devices Not on file Procedures Procedure NamePriorityDate/TimeAssociated DiagnosisCommentsUS MFM OB FOLLOW-UP, 1 AKSSMLytaybz55/23/2025 3:04 PM EDT 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 trimester History of prior with IUGR History of premature rupture of membranes US MFM OB FZQJKXVACIEYCiubbst16/09/2025 3:49 PM EDT 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 trimester History of prior with IUGR History of premature rupture of membranes US MFM OB QCOAFTGYGYLPQebhtuf44/02/2025 4:16 PM EDT 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 trimester History of prior with IUGR History of premature rupture of membranes from Last 3 Months Results * US MFM OB FOLLOW-UP, 1 FETUS (12/11/2024 3:04 PM EDT) Only the most recent of3 resultswithin the time period is included. Anatomical RegionLateralityModalityOB-GYNUltrasoundSpecimen (Source)Anatomical Location / LateralityCollection Method / VolumeCollection TimeReceived Time 12/11/2024 2:27 PM EDT Narrative 12/12/2024 1:35 PM EDT NAME: ??KERRY MILLAN : 2000 SEX: F Accession Number: [id number] ORDERING PHYSICIAN: ANTOINETTE BLAKELY REFERRING PHYSICIAN: SHAUNA NAIR Coding Procedures ? 64200: Ultrasound, uterus, real time with image documentation, follow up,transabdominal ? approach per fetus Indication Screening for follow-up survey, History of prior with gestational diabetes, History of prior with IUGR, History of prior with delivery, Hypothyroidism. History OB History ? 2. Para 1 ? Y1V7L6L8 Current Cell free DNA ?low risk analysis Maternal Assessment Physical Exam ??Height 165 cm, 5 ft 5 in. Initial weight 63 kg, 138 lb. Initial BMI 22.96 kg/m?? Method Transabdominal ultrasound examination. Gorman . Number of fetuses: 1 Dating LMP on: ?06/16/2024 Cycle: regular cycle GA by LMP ?25 w + 3 d RENATO by LMP: ?03/23/2025 Previous Ultrasound on: ?08/17/2024 Type of prior assessment: ?GA GA at prior assessment date ?8 w + 5 d GA by previous U/S ? 25 w + 2 d RENATO by previous Ultrasound: ?03/24/2025 Ultrasound examination on: ? 12/11/2024 GA by U/S based upon: ??AC, BPD, Femur, HC GA by U/S ?24 w + 5 d RENATO by U/S: ?03/28/2025 Assigned: ?based on the LMP, selected on 11/05/2024 Assigned GA (weeks days) ? 25 w + 3 d Assigned RENATO: ??03/23/2025 General Evaluation Cardiac activity Present. FHR 150 bpm. Presentation: cephalic Placenta: Placental site: posterior, previously documented away from cervical os Umbilical cord: Cord vessels: 3 vessel cord. Insertion site: documented previously Amniotic fluid: Amount of AF: normal amount. MVP 5.0 cm Biometry Standard BPD ?58.1 mm 23w 6d 4% Hadlock OFD ?81.6 mm 26w 4d 82% Joanie HC ? 225.4 mm ?24w 4d 7% Hadlock Cerebellum tr ??28.8 mm 25w 2d 49% Hill AC ? 205.1 mm ?25w 1d 31% Hadlock Femur ??46.4 mm 25w 3d 36% Hadlock Humerus ?41.1 mm 24w 6d 23% Joanie HC / AC ?1.10 EFW ?769 g ?26% Hadlock EFW (lb) ? 1 lb EFW (oz) ? 11 oz EFW by: ?Hadlock (CAJ-AS-MJ-FL) Extended Tibia ??40.0 mm 25w 2d 39% Joanie Rental Salesperson ? 2.9 mm CM ? 6.9 mm ?? 70% Nicolaides Head / Face / Neck Cephalic index 0.71 ? 1% Nicolaides Nasal bone: ?present Extremities / Bony Struc FL / BPD ? 0.80 FL / HC ?0.21 FL / AC ?0.23 Other Structures FHR ?150 bpm Anatomy The following structures appear normal: Head/Neck: Cranium. Lateral ventricles. Cavum septi pellucidi. Cerebellum. Cisterna magna. Parenchyma. Face: Lips. Profile. Nose. Nasal bone. Maxilla. Mandible. Orbits. Heart/Thorax: 4-chamber view. RVOT view. LVOT view. 3-vessel view. 3-ftkosd-gksgmls view. Situs. Aortic arch view. ? Bicaval view. Ductal arch view. Interventricular septum. Great vessels. Cardiac position. Cardiac axis. ? Cardiac size. Cardiac rhythm. ? Diaphragm. Abdomen: Stomach. Kidneys. Bladder. Spine: Cervical spine. Thoracic spine. Lumbar spine. Sacral spine. Extremities/Skeleton: Left hand. Left upper leg. Left lower leg. Skeleton The following structures were documented previously: Head / Neck ?Choroid plexus. Midline falx. Vermis. ? Neck. Heart / Thorax Right lung. Left lung. Abdomen ?Abdom. wall. Cord insertion. Right renal artery. Left renal artery. Genitals. Extremities / ??Right upper arm. Right forearm. Right hand. Left upper arm. Left forearm. Right upper leg. Right lower ? leg. Right foot. Left foot. Maternal Structures Uterus Visualized Cervix Visualized Right Ovary ?Not visualized Left Ovary ? Visualized ? Size 3.1 cm x 2.2 cm x 1.1 cm. Vol 4.0 cm?? Cul de Sac ? Visualized Impression Single live intrauterine . 25w 3d. Normal growth. EFW measures at the 26%, AC measures at the 31%. anatomic survey did not reveal sonographic evidence of any gross structural abnormalities. Amniotic fluid MVP measures 5 cm. Recommendations Please see [facility] recommendations from prior clinical and/or ultrasound report documentation. Subsequent follow up or other follow up as clinically determined by primary OB provider unless otherwise specified by [facility]. Results forwarded to ordering provider so they can follow up with the patient as necessary. Procedure Note Antoinette Blakely MD - 12/12/2024 NAME: KERRY MILLAN : 2000 SEX: F Accession Number: [id number] ORDERING PHYSICIAN: ANTOINETTE BLAKELY REFERRING PHYSICIAN: SHAUNA NAIR Coding Procedures 81725: Ultrasound, uterus, real time with image documentation, follow up, transabdominal approach per fetus Indication Screening for follow-up survey, History of prior withgestational diabetes, History of prior with IUGR, History of prior with delivery, Hypothyroidism. History OB History 2. Para 1 S6R2B0W7 Current Cell free DNA low risk analysis Maternal Assessment Physical Exam Height 165 cm, 5 ft 5 in. Initial weight 63 kg, 138 lb.Initial BMI 22.96 kg/m?? Method Transabdominal ultrasound examination. Gorman . Number of fetuses: 1 Dating LMP on: 06/16/2024 Cycle: regular cycle GA by LMP 25 w + 3 d RENATO by LMP: 03/23/2025 Previous Ultrasound on: 08/17/2024 Type of prior assessment: GA GA at prior assessment date 8 w + 5 d GA by previous U/S 25 w + 2 d RENATO by previous Ultrasound: 03/24/2025 Ultrasound examination on: 12/11/2024 GA by U/S based upon: AC, BPD, Femur, HC GA by U/S 24 w + 5 d RENATO by U/S: 03/28/2025 Assigned: based on the LMP, selected on 11/05/2024 Assigned GA (weeks days) 25 w + 3 d Assigned RENATO: 03/23/2025 General Evaluation Cardiac activity Present. FHR 150 bpm. Presentation: cephalic Placenta: Placental site: posterior, previously documented away fromcervical os Umbilical cord: Cord vessels: 3 vessel cord. Insertion site: documented previously Amniotic fluid: Amount of AF: normal amount. MVP 5.0 cm Biometry Standard BPD 58.1 mm 23w 6d 4% Hadlock OFD 81.6 mm 26w 4d 82% Joanie HC 225.4 mm 24w 4d 7% Hadlock Cerebellum tr 28.8 mm 25w 2d 49% Hill AC 205.1 mm 25w 1d 31% Hadlock Femur 46.4 mm 25w 3d 36% Hadlock Humerus 41.1 mm 24w 6d 23% Joanie HC / AC 1.10 EFW 769 g 26% Hadlock EFW (lb) 1 lb EFW (oz) 11 oz EFW by: Hadlock (TTW-CP-HS-FL) Extended Tibia 40.0 mm 25w 2d 39% Joanie Rental Salesperson 2.9 mm CM 6.9 mm 70% Nicolaides Head / Face / Neck Cephalic index 0.71 1% Nicolaides Nasal bone: present Extremities / Bony Struc FL / BPD 0.80 FL / HC 0.21 FL / AC 0.23 Other Structures FHR 150 bpm Anatomy The following structures appear normal: Head/Neck: Cranium. Lateral ventricles. Cavum septi pellucidi. Cerebellum. Cisterna magna. Parenchyma. Face: Lips. Profile. Nose. Nasal bone. Maxilla. Mandible. Orbits. Heart/Thorax: 4-chamber view. RVOT view. LVOT view. 3-vessel view. 5-qokpvu-hgiebih view. Situs. Aortic arch view. Bicaval view. Ductal arch view. Interventricular septum. Greatvessels. Cardiac position. Cardiac axis. Cardiac size. Cardiac rhythm. Diaphragm. Abdomen: Stomach. Kidneys. Bladder. Spine: Cervical spine. Thoracic spine. Lumbar spine. Sacral spine. Extremities/Skeleton: Left hand. Left upper leg. Left lower leg. Skeleton The following structures were documented previously: Head / Neck Choroid plexus. Midline falx. Vermis. Neck. Heart / Thorax Right lung. Left lung. Abdomen Abdom. wall. Cord insertion. Right renal artery. Left renalartery. Genitals. Extremities / Right upper arm. Right forearm. Right hand. Left upper arm.Left forearm. Right upper leg. Right lower leg. Right foot. Left foot. Maternal Structures Uterus Visualized Cervix Visualized Right Ovary Not visualized Left Ovary Visualized Size 3.1 cm x 2.2 cm x 1.1 cm. Vol 4.0 cm?? Cul de Sac Visualized Impression Single live intrauterine . 25w 3d. Normal growth. EFW measures at the 26%, AC measures at the 31%. anatomic survey did not reveal sonographic evidence of any grossstructural abnormalities. Amniotic fluid MVP measures 5 cm. Recommendations Please see [facility] recommendations from prior clinical and/or ultrasoundreport documentation. Subsequent follow up or other follow up as clinically determined byprimary OB provider unless otherwise specified by M. Results forwarded to ordering provider so they can follow up with thepatient as necessary. Authorizing ProviderResult TypeResult StatusAntoinette Blakely MDG ORDERABLESFinal Result from Last 3 Months Insurance Advance Directives * Full Code (Latest Code Status on File) Date ActivatedDate InactivatedComments05/30/2021 7:15 AM06/01/2021 2:55 PM * Full Code Date ActivatedDate InactivatedComments05/12/2021 1:10 PM2 2:16 PM * Full Code Date ActivatedDate InactivatedComments04/21/2021 7:00 PM2 1:57 PM * Full Code Date ActivatedDate VbpybtipgriHntgipjg95/14/2021 5:01 PM03/26/2021 7:46 PM Care Teams Team MemberRelationshipSpecialtyStart DateEnd Date Carrillo White MD PCP - GeneralInternal Medicine04/07/21
--- OUTSIDE RECORDS SUMMARY | 2025-02-12 14:53 | XMS_ITS | Encounter Summary ---
Author Organization [facility] Address [address] [facility] [place] [address] Care Team Providers Care Residential Treatment Counselor Name Role Phone Carrillo White MD Primary Care Provider [phone] Encounter Details DateTypeDepartmentCare Team (Latest Contact Info)Imfuwfzzyuh37/18/2025linisync Result Encounter [facility] Unsolicited Shauna Marshall DO [address] [place] [address] Social History Tobacco UseTypesPacks/DayYears UsedDateSmoking Tobacco: NeverAlcohol UseStandard Drinks/WeekCommentsYes0 (1 standard drink = 0.6 oz pure alcohol)occasional alcohol useEstimated Date of OidpnbniDmgpackpHdk216Based on last menstrual period of 06/16/2024Sex and Gender InformationValueDate RecordedSex Assigned at BirthNot on fileLegal EnjJjbzhw15/15/2023 10:14 PM EDTGender IdentityNot on fileSexual OrientationNot on filedocumented as of this encounter Plan of Treatment DateTypeDepartmentCare Team (Latest Contact Info)Hmiisgucpde94/26/2025 10:50 AM ESTRoutine [facility] Augustina OBJAN [address] [place] [id number] Erum Guidry PA [address] [place] [address] documented as of this encounter Procedures Procedure NamePriorityDate/TimeAssociated DiagnosisCommentsUS OB BPP W NON-XHYOVN5702/05/2025 7:47 PM EST documented in this encounter Results * US OB BPP W NON-STRESS (02/05/2025 7:47 PM EST)Anatomical Region LateralityModalityOtherSpecimen (Source)Anatomical Location / Laterality Collection Method / VolumeCollection TimeReceived Time02/05/2025 7:47 PM EST Narrative 02/05/2025 7:49 PM EST [facility] ?[address] ? [place] [address] ? Ultrasound Report ? Signed ? Patient: YANA PAYNE ?MR#: [id number] ?? : 2000 ?Acct:[id number] ?? Age/Sex: 25 / F ?ADM Date: 02/05/25 ?? Loc: US ? Attending Dr: Shauna Marshall D.O. ? Ordering Physician: Shauna Marshall D.O. ?? Date of Service: 02/05/25 ?? Procedure(s): US OB BPP w non-stress ?? Accession Number(s): [id number] ? cc: Shauna Marshall D.O.; Physician,Non-Staff M.D. ? [facility] ? [address] ? [place] [address] ? Patient Name: ?? YANA Jaimes KERRY ? MRN: [facility]:[id number] ? date: 2000 ?Sex: F ?? Assigned Patient Location: US ?? Current Patient Location: ? Accession/Order Number: [id number] ?? Exam Date: 02/05/2025 ??13:02 ?Report Date: 02/05/2025 ??19:47 ? At the request of: ?? SHAUNA ??JOANNA ??DO ? Procedure: ??US OB BPP w non-stress ? Ultrasound biophysical profile ? HISTORY: Thyroid disease ? Adequate breathing movement, gross body movement, tone and ?? amniotic fluid volume for total score of 8 out of 8. ??The amniotic fluid index ?? is 16.0cm within normal limits. ??The heart rate 155 bpm. ? US/US OB BPP w non-stress ?? IMPRESSION: Adequate ultrasound biophysical profile ? Impression dictated by: Panfilo Saul M.D. ??02/05/2025 7:47 PM ? Dictation Location: RADIO-PC-20 ? Electronically authenticated by: [id number] ??Y ?? Date: 02/05/2025 ??19:47 ? Dictated By: ?Panfilo Saul D.O. ? Signed By: ?02/05/251948 ? DD/ 46 ? TD/TT: ? Bone Grinder: Procedure Note Radiology, Radiologist, - 02/05/2025 [place] [address] Ultrasound Report Signed Patient: YANA PAYNE RMR#: [id number] : 2000Acct:[id number] Age/Sex: 25 / FADM Date: 02/05/25 Loc: US Attending Dr: Shauna Marshall D.O. Ordering Physician: Shauna Marshall D.O. Date of Service: 02/05/25 Procedure(s): US OB BPP w non-stress Accession Number(s): [id number] cc: Shauna Marshall D.O.; Physician,Non-Staff [facility] [place] [id number] Patient Name: YANA PAYNE MRN: [facility]:[id number] date: 2000 Sex: F Assigned Patient Location: US Current Patient Location: Accession/Order Number: [id number] Exam Date: 02/05/2025 13:02 Report Date: 02/05/2025 19:47 At the request of: SHAUNA MARSHALL DO Procedure: US OB BPP w non-stress Ultrasound biophysical profile HISTORY: Thyroid disease Adequate breathing movement, gross body movement, tone and amniotic fluid volume for total score of 8 out of 8. The amniotic fluidindex is 16.0cm within normal limits. The heart rate 155 bpm. US/US OB BPP w non-stress IMPRESSION: Adequate ultrasound biophysical profile Impression dictated by: Panfilo Saul M.D. 02/05/2025 7:47 PM Dictation Location: [place] [address] Electronically authenticated by: [id number] Y Date: 9:47 Dictated By: Panfilo Saul D.O. Signed By:02/05/251948 DD/ 46 TD/TT: Bone Grinder: Authorizing ProviderResult TypeResult StatusCorey Joanna DOCLINISYNC IMAGINGFinal Result documented in this encounter Visit Diagnoses Not on filedocumented in this encounter Care Teams Team MemberRelationshipSpecialtyStart DateEnd Date Carrillo White MD [address] [facility] [facility] [place] [address] PCP - GeneralInternal Medicine11/29/22documented as of this encounter
--- OUTSIDE RECORDS SUMMARY | 2025-02-12 14:53 | XMS_ITS | Clinical Summary ---
Author Organization [facility] [place] [address] Care Team Providers Care Customs And Border Protection Inspector Name Role Phone Carmita Jurado MD Unavailable [phone] Social History Tobacco UseTypesPacks/DayYears UsedDateSmoking Tobacco: Never Assessed CommentsUnknownSex and Gender InformationValueDate RecordedSex Assigned at Not on fileLegal PutPvwqfs56/24/2025 11:11 AM ESTGender IdentityNot on file Sexual OrientationNot on file Plan of Treatment Health MaintenanceDue DateLast DoneCommentsHepatitis B (2 of 3 - 3-dose series) Varicella (2 of 2 - 2-dose childhood series)2002 01/26/1999Polio (2 of 3 - 4-dose series)MenB (3 of 3 - Trumenba SCDM 3-Dose Series), 09/15/2015Hepatitis A (1 of 2 - Risk 2-dose series)2017Pap Smear2019COVID-19 ( season) 2024FLU (#1)11/19/2024HPV (1 - 3-dose SCDM series)2025Tetanus Diphtheria and Pertussis Vaccines (8 - Td or Tdap), 06/22/2010, 10/16/2003, Additional history uvsuacQGKYpavsfhlz07/28/2004, 01/26/19993474WvmDWBESxepfhawz10/27/2016, 06/22/2010HIBAged OutNo longer eligible based on patient's age to complete this topicNirsevimabAged OutNo longer eligible based on patient's age to complete this topicPneumococcalAged OutNo longer eligible based on patient's age to complete this topicRotavirusAged OutNo longer eligible based on patient's age to complete this topic Insurance Care Teams Team MemberRelationshipSpecialtyStart DateEnd [place] [address] Attending ProviderMedical Clinical Genetics05/14/24
--- OUTSIDE RECORDS SUMMARY | 2025-02-12 14:53 | XMS_ITS | Encounter Summary ---
Author Organization [facility] Address [address] [place] [address] Care Team Providers Care Field Reporter Name Role Phone Carrillo White MD Primary Care Provider [phone] Encounter Details DateTypeDepartmentCare Team (Latest Contact Info)Dkcuyfkusmz15/18/2025linisync Result Encounter [facility] External Department Unsolicited Abril Stone, YADI [address] [place] [address] Social History Tobacco UseTypesPacks/DayYears UsedDateSmoking Tobacco: NeverAlcohol UseStandard Drinks/WeekCommentsYes0 (1 standard drink = 0.6 oz pure alcohol)occasional alcohol useEstimated Date of AjfrjgytTlvucwnlKix90/03/2026Based on last menstrual period of 06/16/2024Sex and Gender InformationValueDate RecordedSex Assigned at BirthNot on fileLegal UmcAoiasu50/15/2023 10:14 PM EDTGender IdentityNot on fileSexual OrientationNot on filedocumented as of this encounter Plan of Treatment DateTypeDepartmentCare Team (Latest Contact Info)Dpremqhxwek79/26/2025 10:50 AM ESTRoutine [facility] Augustina FUENTES [address] [place] [address] Erum Guidry PA [address] [place] [place] [address] documented as of this encounter Procedures Procedure NamePriorityDate/TimeAssociated DiagnosisCommentsALL THYROID STIM XKOZXPZQjyvyes16/18/2025 2:42 PM EST documented in this encounter Results * ALL THYROID STIM HORMONE (02/05/2025 2:42 PM EST)ComponentValueRef RangeTest MethodAnalysis TimePerformed AtPathologist SignatureTHYROID STIMULATING HORMONE1.3280.358 - 3.740 uIU/mLTBHSpecimen (Source)Anatomical Location / LateralityCollection Method / VolumeCollection TimeReceived Time02/05/2025 2:42 PM EST02/05/2025 2:44 PM EST Narrative [facility]IN[facility]NC - 02/05/2025 3:43 PM EST Authorizing ProviderResult TypeResult StatusKristina Bertha NPCLINISYNCFinal ResultPerforming OrganizationAddressCity/State/ZIP CodePhone Number [facility] documented in this encounter Visit Diagnoses Not on filedocumented in this encounter Care Teams Team MemberRelationshipSpecialtyStart DateEnd Date Carrillo White MD [address] [place] [address] PCP - GeneralInternal Medicine11/29/22documented as of this encounter
--- OUTSIDE RECORDS SUMMARY | 2025-02-12 14:53 | XMS_ITS | Clinical Summary ---
Author Organization [facility] Address [address] [place] [address] Care Team Providers Care Case Maker Name Role Phone Carrillo White MD Primary Care Provider [phone] Allergies No known active allergies Medications MedicationSigDispense QuantityRefillsLast FilledStart DateEnd DateStatus levothyroxine (Synthroid) 125 MCG tablet Indications:Thyroid diseaseTake 1 tablet (125 mcg) by mouth in the morning. Take before meals. 30 tablet 1106/777202/6Active MV-Min-Fe Fum-FA-DHA ( 1 PO) Take by mouthActive Active Problems ProblemNoted DateDiagnosed DateThyroid jcjjmun8701/28/2025History of prior with IUGR ekkhant3501/28/2025Estimated Date of DeliveryComments Yes03/23/2025ased on last menstrual period of 06/16/2024 Encounters DateTypeDepartmentCare XmeaEeseawhqdxh54/18/2025Clinisync Result Encounter [facility] External Department Unsolicited Shauna Marshall DO 5Clinisync Result Encounter [facility] External Department Unsolicited Abril Stone NP 02/04/2025 8:00 AM ESTAncillary Procedure [facility] Augustina FUENTES [address] [place] [address] Thyroid disease; History of prior with IUGR ; Hypothyroidism, unspecified type01/28/2025 8:30 AM ESTRoutine [facility] Augustina FUENTES [address] [place] [address] Shauna Marshall, Third trimester ([facility]); 32 weeks gestation of ([facility]); Thyroid disease; History of prior with IUGR ; Hypothyroidism, unspecified type01/28/2025amb flowsheet [facility] Augustina FUENTES [address] [place] [address] [place] [address] Shauna Marshall DO 01/14/2025 8:30 AM EDTRoutine [facility] Augustina FUENTES [address] [place] [address] [place] [address] Shauna Marshall, Third trimester ([facility]); 30 weeks gestation of ([facility])01/14/2025amb flowsheet [facility] Augustina FUENTES [address] [place] [address] [place] [address] Shauna Marshall, 12/31/2024 11:00 AM EDTRoutine [facility] Augustina FUENTES [address] [place] [address] [place] [address] Shauna Marshall, Third trimester ([facility]); 28 weeks gestation of ([facility])12/31/2024 10:30 AM EDTAncillary Procedure [facility] Augustina FUENTES [address] [place] [address] [place] [address] Size of fetus inconsistent with dates in second trimester ([facility])12/12/2024 Abstract [facility] Augustina FUENTES [address] [place] [address] [place] [address] Shauna Marshall DO 5Clinisync Result Encounter [facility]S External Department Unsolicited Erum Guidry PA 12/11/2024Telephone NOMDwain FUENTES [address] [place] [address] [place] [address] Erum Guidry PA 5Clinisync Result Encounter [facility]OMS External Department Unsolicited Erum Guidry PA 12/10/2024 10:00 AM EDTRoutine [facility] [place] [facility] [address] [facility] [place] [address] Erum Guidry PA Size of fetus inconsistent with dates in second trimester ([facility]) (Primary Dx); Second trimester ([facility]); 25 weeks gestation of ([facility]); Diabetes mellitus zwggyqffk10/22/2025amboo flowsheet [facility] [place] [facility] [address] [facility] [place] [address] Erum Guidry PA 11/28/2024bstract [facility] [place] [facility] [address] [facility] [place] [address] Shauna Marshall, 11/27/2024bstract [facility] [address] [facility] [place] [address] Shauna Marshall, 11/23/2024bstract [facility] [address] [facility] [place] [address] Ann Ma MA 11/12/2024 11:10 AM EDTRoutine [facility] [place] [facility] [address] [facility] [place] [address] Shauna Marshall DO Hypothyroidism, unspecified type (Primary Dx); Second trimester ([facility]); 21 weeks gestation of ([facility]); Vaginal discharge; STD cavbmspx87/25/2025amboo flowsheet [facility] [address] [facility] [place] [address] Shauna Marshall DO from Last 3 Months Family History Medical HistoryRelationNameCommentsCancerFatherDiabetesFatherHypertensionFather Mental illnessFatherCancerMaternal GrandmotherDiabetesMaternal Grandmother HypertensionMaternal GrandmotherStomach cancerMotherDiabetesPaternal Grandfather CancerPaternal GrandmotherRelationNameStatusCommentsFatherMaternal Grandmother MotherPaternal GrandfatherPaternal Grandmother Social History Tobacco UseTypesPacks/DayYears UsedDateSmoking Tobacco: Never Tobacco Cessation:Counseling Given: Not Answered Alcohol UseStandard Drinks/WeekCommentsYes0 (1 standard drink = 0.6 oz pure alcohol)occasional alcohol useEstimated Date of DeliveryCommentsYes 03/23/2025ased on last menstrual period of 06/16/2024Sex and Gender Information ValueDate RecordedSex Assigned at BirthNot on fileLegal UgqTkluri10/15/2023 10:14 PM EDTGender IdentityNot on fileSexual OrientationNot on file Last Filed Vital Signs Vital SignReadingTime TakenCommentsBlood Fblbplqr794/7001/28/2025 8:39 AM EST Pulse--Temperature--Respiratory Rate--Oxygen Saturation--Inhaled Oxygen Concentration--Sudnja17.7 kg (158 lb)01/28/2025 8:39 AM YPWQsqkdg109.1 cm (5' 5 )11/29/2022 3:23 PM EDTBody Mass Index26.29011/29/2022 3:23 PM EDT Plan of Treatment DateTypeDepartmentCare Team (Latest Contact Info)Acbmyptmsxb61/26/2025 10:50 AM ESTRoutine [facility] [address] [facility] [place] [address] Erum Guidry PA [address] [place] [place] [address] Procedures Procedure NamePriorityDate/TimeAssociated DiagnosisCommentsUS OB BPP W NON-VVISBA2102/05/2025 7:47 PM EST ALL THYROID STIM CXYWIOEBwpekmh37/18/2025 2:42 PM EST US OB FOLLOW UP TRANSABDOMINAL HRVTNXABEsebfnp66/17/2025 8:26 AM EST Thyroid disease History of prior with IUGR Hypothyroidism, unspecified type POCT URINALYSIS FSRJMIPIPpjzwqk49/10/2025 8:40 AM EST Third trimester ([facility]) POCT URINALYSIS JEMCULLMSivwnom15/27/2025 8:40 AM EDT Third trimester ([facility]) POCT URINALYSIS IFFJCEUAQsvchmp58/13/2025 11:29 AM EDT Third trimester ([facility]) US OB FOLLOW UP TRANSABDOMINAL JRMOROXHFvtdoax37/13/2025 10:55 AM EDT Size of fetus inconsistent with dates in second trimester ([facility]) GLUCOSE TOLERANCE 3 CAYONvdqggw75/24/2025 8:42 AM EDT ALL THYROID STIM HURZGEKKpchrgy06/23/2025 9:34 AM EDT GLUCOSE 1 XBSFFcsabof14/23/2025 9:34 AM EDT ALL CBC WITH AUTO RITDZzofgrv69/23/2025 9:34 AM EDT POCT URINALYSIS YQUMXRTFHpgkizx04/22/2025 10:28 AM EDT Second trimester ([facility]) RECURRENT VAGINITIS (HTRX)Fjkayhw2211/12/2024 12:29 PM EDT POCT URINALYSIS RSEZEKMEEbvrhlp61/25/2025 11:49 AM EDT Second trimester ([facility]) 21 weeks gestation of ([facility]) from Last 3 Months Results * US OB BPP W NON-STRESS (02/05/2025 7:47 PM EST)Anatomical Region LateralityModalityOtherSpecimen (Source)Anatomical Location / Laterality Collection Method / VolumeCollection TimeReceived Time02/05/2025 7:47 PM EST Narrative 02/05/2025 7:49 PM EST [facility] ?[address] ? [place] [address] ? Ultrasound Report ? Signed ? Patient: BROECKEL,YANA R ?MR#: [id number] ?? : 2000 ?Acct:[id number] ?? Age/Sex: 25 / F ?ADM Date: 11/18/25 ?? Loc: US ? Attending Dr: Shauna Marshall D.O. ? Ordering Physician: Shauna Marshall D.O. ?? Date of Service: 02/05/25 ?? Procedure(s): US OB BPP w non-stress ?? Accession Number(s): [id number] ? cc: Shauna Marshall D.O.; Physician,Non-Staff Ravi ? [facility] ? [address] ? [place] [address] ? Patient Name: ?? YANA PAYNE ? MRN: [facility]:[id number] ? date: 2000 ?Sex: F ?? Assigned Patient Location: ?? Current Patient Location: ? Accession/Order Number: [id number] ?? Exam Date: 02/05/2025 ??13:02 ?Report Date: [...] M.D. ??02/05/2025 7:47 PM ? Dictation Location: [facility]-- ? Electronically authenticated by: [id number] ??Y ?? Date: 02/05/2025 ??19:47 ? Dictated By: ?Panfilo Saul D.O. ? Signed By: ?02/05/251948 ? DD/ 46 ? TD/TT: ? Educational Programming Director: Procedure Note Radiology, Radiologist, MD - 02/05/2025 [place] [address] Ultrasound Report Signed Patient: YANA PAYNE RMR#: [id number] : 2000Acct:[id number] Age/Sex: 25 / FADM Date: 02/05/25 Loc: US Attending Dr: Shauna Marshall D.O. Ordering Physician: Shauna Marshall D.O. Date of Service: 02/05/25 Procedure(s): US OB BPP w non-stress Accession Number(s): [id number] cc: Shauna Marshall D.O.; Physician,Non-Staff Ravi [place] [address] Patient Name: YANA PAYNE MRN: [facility]:[id number] date: 2000 Sex: F Assigned Patient Location: US Current Patient Location: Accession/Order Number: [id number] Exam Date: 02/05/2025 13:02 Report Date: 02/05/2025 [...] Saul M.D. 02/05/2025 7:47 PM Dictation Location: [place] [address] Electronically authenticated by: [id number] Y Date: 9:47 Dictated By: Panfilo Saul D.O. Signed By:02/05/251948 DD/ 46 TD/TT: Educational Programming Director: Authorizing ProviderResult TypeResult StatusCorey Joanna DOCLINISYNC IMAGINGFinal Result * ALL THYROID STIM HORMONE (02/05/2025 2:42 PM EST) Only the most recent of2 resultswithin the time period is included. ComponentValueRef RangeTest MethodAnalysis TimePerformed AtPathologist Signature THYROID STIMULATING HORMONE1.3280.358 - 3.740 uIU/mLTBHSpecimen (Source) Anatomical Location / LateralityCollection Method / VolumeCollection Time Received Time02/05/2025 2:42 PM EST02/05/2025 2:44 PM EST Narrative [facility]NC - 02/05/2025 3:43 PM EST Authorizing ProviderResult TypeResult StatusAbril Stone NPCLINISYNCFinal ResultPerforming OrganizationAddressCity/State/ZIP CodePhone Number CLINSYED [facility] * US OB follow up transabdominal approach (02/04/2025 8:26 AM EST) Only the most recent of2 resultswithin the time period is included. Anatomical RegionLateralityModalityBodyUltrasoundSpecimen (Source)Anatomical Location / LateralityCollection Method / VolumeCollection TimeReceived Time 02/06/2025 11:57 AM EST Impressions 02/06/2025 12:45 PM [...] 2025. ?? The current estimated weight is 2021 grams (4 pounds, 7 ounces). ?? Procedure [...] of March. The current estimated weight is 2021 grams (4 pounds, 7ounces). IMPRESSION: Single, live intrauterine , current sonographic age of 32 weeksand 0 days, with an estimated date of delivery of April 01, 2025 (priorEDD March 27, 2025). * Estimated Weight (g) by Percentile is based upon an accurateestimated age based on last menstrual period. TRANSCRIBED BY: ELECTRONICALLY SIGNED BY: Hermelindo Padilla MD Authorizing ProviderResult TypeResult StatusAbril Stone [facility] US PROCEDURESFinal Result * POCT urinalysis dipstick manually resulted (01/28/2025 8:40 AM EST) Only the most recent of5 resultswithin the time period is included. ComponentValueRef RangeTest MethodAnalysis TimePerformed AtPathologist Signature Color, UAYellowClarity, UAClearGlucose, UANegativeNegative - 2000(110) ++++ mg/dLBilirubin, UANegativeNegative - 4(70) +++ mg/dLKetones, UANegativeNegative - 160(16) ++++ mg/dLSpec Grav, UA1.0201 - 1.03Blood, UANegativeNegative - 50 Cedric/mcLpH, UA6.05 - 9Protein, UANegativeNegative - 2000(20) ++++ mg/dL Urobilinogen, UA1.00.2 - 12 mg/dLLeukocytes, UANegativeNegative - 500+++ Ayana/mcL Nitrite, UANegativeNegative - PositiveSpecimen (Source)Anatomical Location / LateralityCollection Method / VolumeCollection TimeReceived VrtkOmsyc44/10/2025 8:40 AM EST Narrative Authorizing ProviderResult TypeResult StatusCoreemigdio Joanna DOPOINT OF CARE TEST ENTER/EDIT ORDERABLESFinal Result * (ABNORMAL) GLUCOSE TOLERANCE 3 HOUR (12/12/2024 8:42 AM EDT)ComponentValueRef RangeTest MethodAnalysis TimePerformed AtPathologist SignatureGLUCOSE TOLERANCE 3 HOUR(H)mg/dLTBHComment: GLU FAST 89 (<95) Col: 12/12/24 0842 GLU 1HR 178 (<180) Col: 12/12/24 0949 GLU 2HR 156H (<155) Col: 12/12/24 1041 GLU 3HR 103 (<140) Col: 12/12/24 1147 Specimen (Source)Anatomical Location / LateralityCollection Method / Volume Collection TimeReceived Time12/12/2024 8:42 AM EDT12/12/2024 8:43 AM EDT Narrative CLINISYNC - 12/12/2024 12:31 PM EDT Authorizing ProviderResult TypeResult Status[facility] BLOOD ORDERABLES Final ResultPerforming OrganizationAddressCity/State/ZIP CodePhone Number CLINISYNC [facility] * (ABNORMAL) GLUCOSE 1 HOUR (12/11/2024 9:34 AM EDT)ComponentValueRef RangeTest MethodAnalysis TimePerformed AtPathologist SignatureGLUCOSE 1 VAFK841(H)<130 mg/dLTBHSpecimen (Source)Anatomical Location / LateralityCollection Method / VolumeCollection TimeReceived Time12/11/2024 9:34 AM EDT12/11/2024 10:16 AM EDT Narrative CLINISYNC - 12/11/2024 10:57 AM EDT Authorizing ProviderResult TypeResult StatusAmy Brea MELENDEZ BLOOD ORDERABLES Final ResultPerforming OrganizationAddressCity/State/ZIP CodePhone Number [facility] * (ABNORMAL) ALL CBC WITH AUTO DIFF (12/11/2024 9:34 AM EDT)ComponentValueRef RangeTest MethodAnalysis TimePerformed AtPathologist SignatureTBH WBC8.84.0 - 11.0 10 3/uLTBHTBH RBC3.25(L)4.20 - 5.40 10 6/uLTBHTBH HGB10.8(L)12.0 - 16.0 g/dLTBHTBH HCT32.4(L)36.0 - 48.0 %TBHTBH MCV99.7(H)81.0 - 99.0 fLTBHTBH MCH 33.226.7 - 34.0 pgTBHTBH MCHC33.329.9 - 35.2 g/dLTBHTBH RDW12.411.0 - 15.0 % TBHTBH WZQ059271 - 450 10 3/uLTBHTBH MPV10.59.5 - 13.5 fLTBHNEUTROPHILS PERCENT AUTO79.9(H)43.0 - 75.0 %TBHLYMPHOCYTES PERCENT AUTO14.4(L)20.5 - 60.0 %TBHMONOCYTES PERCENT AUTO4.61.7 - 12.0 %TBHTBH EO %0.5(L)0.9 - 7.0 %TBH BASOPHILS PERCENT AUTO0.30.2 - 2.0 %TBHIMMATURE GRANULOCYTES PCT AUTO0.30.0 - 0.5 %TBHNEUTROPHILS ABSOLUTE AUTO7.0(H)1.4 - 6.5 10 3/uLTBHLYMPHOCYTES ABSOLUTE AUTO1.31.2 - 3.8 10 3/uLTBHMONOCYTES ABSOLUTE AUTO0.40.3 - 0.8 10 3/uLTBHTBH EO #0.00.0 - 0.7 10 3/uLTBHBASOPHILS ABSOLUTE AUTO0.00.0 - 0.1 10 3/uLTBHIMMATURE GRANULOCYTES ABS AUTO0.030.00 - 0.03 10 3/uLTBHSpecimen (Source)Anatomical Location / LateralityCollection Method / VolumeCollection TimeReceived Time12/11/2024 9:34 AM EDT12/11/2024 10:16 AM EDT Narrative CLINISYNC - 12/11/2024 10:25 AM EDT Authorizing ProviderResult TypeResult StatusAmy Brea PACLINISYNCFinal Result Performing OrganizationAddressCity/State/ZIP CodePhone Number CLINISYNC [facility] * RECURRENT VAGINITIS (HTRX) (11/12/2024 12:29 PM EDT)ComponentValueRef Range Test MethodAnalysis TimePerformed AtPathologist SignatureATOPOBIUM VAGINAE0 19.961 - 24.689 ppm11/13/2024 7:10 AM EDTHealthTrackRx at LabSt. [facility] Of CarmelATOPOBIUM VAGINAENot Wgocxuxr37.961 - 24.689 ppm11/13/2024 7:10 AM EDTHealthTrackRx at LabPortBVAB 2,3 (BACTERIAL VAGINOSIS ASSOCIATED BACTERIA 2, 3); MOBILUNCUS SPP 019.961 - 24.689 ppm11/13/2024 7:10 AM EDTHealthTrackRx at LabPortBVAB 2,3 (BACTERIAL VAGINOSIS ASSOCIATED BACTERIA 2, 3); MOBILUNCUS SPPNot Detected 19.961 - 24.689 ppm11/13/2024 7:10 AM EDTHealthTrackRx at LabPortCANDIDA ALBICANS, PARAPSILOSIS, YEIPBQONIN986.000 - 30.347 ppm11/13/2024 7:10 AM EDT [facility] at LabPortCANDIDA ALBICANS, PARAPSILOSIS, TROPICALISNot Detected 23.000 - 30.347 ppm11/13/2024 7:10 AM EDTHealthTrackRx at LabPortCANDIDA MSKYIXJF493.000 - 31.618 ppm11/13/2024 7:10 AM EDTHealthTrackRx at [facility] RUY GLABRATANot Joegohbj12.000 - 31.618 ppm11/13/2024 7:10 AM EDT [facility] at LabPortCANDIDA XXUWAE580.000 - 30.873 ppm11/13/2024 7:10 AM EDTHealthTrackRx at LabPortCANDIDA KRUSEINot Ymbnjszs60.000 - 30.873 ppm 11/13/2024 7:10 AM EDTHealthTrackRx at LabPortCHLAMYDIA DMTHIWVDUTS450.000 - 31.586 ppm11/13/2024 7:10 AM EDTHealthTrackRx at LabPortCHLAMYDIA TRACHOMATIS Not Lmsqnnnh68.000 - 31.586 ppm11/13/2024 7:10 AM EDTHealthTrackRx at LabPort GARDNERELLA VHEYLERCB439.961 - 24.689 ppm11/13/2024 7:10 AM EDTHealthTrackRx at LabSt. Elizabeth [facility] Of CarmelGARDNERELLA VAGINALISNot Sngzajyh01.961 - 24.689 ppm11/13/2024 7:10 AM EDTHealthTrackRx at LabSt. [facility] Of CarmelMEGASPHAERA (TYPES 1, 2)019.961 - 24.689 ppm 11/13/2024 7:10 AM EDTHealthTrackRx at LabSt. [facility] Of CarmelMEGASPHAERA (TYPES 1, 2)Not Ngeobpbv76.961 - 24.689 ppm11/13/2024 7:10 AM EDTHealthTrackRx at LabPort NEISSERIA JTLYCPHUFXS489.000 - 32.587 ppm11/13/2024 7:10 AM EDTHealthTrackRx at LabSt. [facility] Of CarmelNEISSERIA GONORRHOEAENot Maquxaqh26.000 - 32.587 ppm11/13/2024 7:10 AM EDTHealthTrackRx at LabSt. Elizabeth [facility] Hospital Of CarmelTRICHOMONAS XLNVYIFAE250.000 - 31.995 ppm 11/13/2024 7:10 AM EDTHealthTrackRx at LabPortTRICHOMONAS VAGINALISNot Dtdgxigt41.000 - 31.995 ppm11/13/2024 7:10 AM EDTHealthTrackRx at LabPort MYCOPLASMA GGZEHFSROX642.961 - 24.689 ppm11/13/2024 7:10 AM EDTHealthTrackRx at LabSt. [facility] Of CarmelMYCOPLASMA GENITALIUMNot Axsvzgns09.961 - 24.689 ppm11/13/2024 7:10 AM EDTHealthTrackRx at LabPortSpecimen (Source)Anatomical Location / LateralityCollection Method / VolumeCollection TimeReceived TimeTissue 11/12/2024 12:29 PM EDT11/13/2024 1:13 AM EDT Narrative Authorizing ProviderResult TypeResult StatusCorey Joanna DOLAB BLOOD ORDERABLES Final ResultPerforming OrganizationAddressCity/State/ZIP CodePhone Number [facility] at LabPort [address] [place] [address] from Last 3 Months Insurance Care Teams Team MemberRelationshipSpecialtyStart DateEnd Date Carrillo White MD [address] [place] [address] PCP - GeneralInternal Medicine11/29/22
[2025-02-12 15:17] VITALS: BP 118/57; PULSE 95
[2025-02-12 15:18] VITALS: TEMP 36.6
[2025-02-12] MEDS: 0.9 % SODIUM CHLORIDE 1,000 ML 1000 ML IV (16:14)
[2025-02-12] MEDS: BETAMETHASONE ACE/BETAMETHASONE SOD PHOS 30 MG/5 ML 12 MG IM (16:15)
--- OUTSIDE RECORDS SUMMARY | 2025-02-12 16:16 | XMS_ITS | CCD ---
Author Organization [facility] Care Team Providers Care Director Of Employer Services Name Role Phone JOANNA, DR VILLATORO Admitting [...] Care Unavailable JOANNA, DR VILLATORO Consulting Unavailable JAONNA, DR VILLATORO Admitting Unavailable JOANNA, DR VILLATORO [...] JOANNA, DR VILLATORO Admitting Unavailable JOANNA, DR VILLATROO Attending Unavailable MISC, DR LAURA Primary Care Unavailable Ritu Desai Primary Care Physician [phone] Norberto, Ya L Primary Care Physician Norberto, [...] (Original)acetaminophen 500 mg oral tablet (3 sources)Start: 88-22-0076dslx 2 tablets by mouth every eight hours [...] oral capsule (2 sources)Cephalosporin AntibacterialStart: 03-09-2023 End: 64-94-0655yyiz 1 capsule by mouth four times dailyKeflex 500 mg Cap 500 mg = 1 cap(s), Oral, QID, X 7 day(s), # 28 cap(s), Refills(s) 0, Pharmacy: [facility], 166, cm, 03/09/23 7:33:00 EST, Height/Length Dosing, 58.7, kg, 03/09/23 7:33:00 EST, Weight Dosing Start Date: 03/09/23 Stop Date: 03/16/23 Status: OrderedColace (3 sources)Start: 82-46-7133Blsfyd Refills(s) 0 Start Date: 11/30/22 Status: OrderedStart: 06-01-2021 End: 00-14-1761tlnu 1 capsule by mouth in the morning, then take 1 capsule by mouth at bedtimedocusate sodium (COLACE) 100 mg capsule Take 1 capsule (100 mg total) by mouth in the morning and 1capsule (100 mg total) before bedtime. 10 capsule 06/01/2021 11/05/2024 Discontinued (Therapy completed)Flonase (3 sources)CorticosteroidStart: 21-86-3166Tyvgfij Nasal, Daily, Refill(s) 0 Start Date: 09/10/18 Status: OrderedFREESTYLE LITE METER kit (3 sources)Start: 73-65-4892CGPGTOINE LITE METER kit See Admin Instructions. 03/26/2021 Activehydrocortisone acetate 0.025 mg/mg / lidocaine hydrochloride 0.03 mg/mg rectal gel (2 sources)Antiarrhythmic, Corticosteroid, Amide Local AnestheticStart: 21-86-9201nrqgcxjeptvsyw-lidocaine 2.5%-3% rectal gel with applicator 1 carmen, Rectal, BID, 60 EA, Refill(s) 1,[employer] [employer] [id number], 166, cm, 11/11/22 9:28:00 EDT, Height/Length Dosing, 59.4, kg, 11/11/22 9:28:00 EDT, Weight Dosing Start Date: 11/19/22 Status: OrderedStart: 57-03-8318rsmtjgpwpimhao-lidocaine 2.5%-3% rectal gel with applicator 1 carmen, Rectal, BID, 60 EA, Refill(s) 1,[facility], 166, cm, 11/11/22 9:28:00 EDT, Height/Length Dosing, 59.4, kg, 11/11/22 9:28:00 EDT, Weight Dosing Start Date: 11/11/22 Status: Orderedlevothyroxine sodium 0.125 mg oral tablet (20 sources)l-ThyroxineStart: 09-17-2024 End: 32-45-8550klni 1 tablet by mouth before mealtimelevothyroxine (Synthroid) 125 MCG tablet Indications: Thyroid disease Take 1 tablet (125 mcg) by mouth in the morning. Take before meals. 30 tablet 11 09/17/2024 09/17/2025 ActiveStart: 08-22-2024 End: 72-98-6742xlki 1 tablet by mouth before mealtimelevothyroxine (Synthroid) 25 MCG tablet Indications: Thyroid disease Take 1 tablet (25 mcg) by mouth in the morning. Take before meals. 30 tablet 11 08/22/2024 10/15/2024 Discontinued Start: 24-67-5489yvdz 1 tablet by mouth once dailySynthroid 100 mcg Tab 100 mcg = 1 tab(s), Oral, Daily, # 90 tab(s), Refills(s) 0, Pharmacy: [facility], 166, cm, 08/08/23 15:44:00 EDT, Height/Length Dosing, 56.1, kg, 08/08/23 15:51:00 EDT, Weight Dosing Start Date: 06/19/24 Status: Ordered Quantity: 90.0 Unit: tab(s) Repeat number: 1Start: 06-19-2024 End: 81-86-6991ontr 1 tablet by mouth once dailylevothyroxine (Synthroid, Levoxyl) 100 MCG tablet Take 100 mcg by mouth Daily 06/19/2024 10/15/2024 DiscontinuedStart: 18-05-8367mfei 1 tablet by mouth once dailySynthroid 100 mcg Tab 100 mcg = 1 tab(s), Oral, Daily, # 90 tab(s), Refills(s) 1, Pharmacy: [facility], 166, cm, 05/16/23 14:25:00 EST, Height/Length Dosing, 56.7, kg, 05/16/23 14:25:00 EST, Weight Dosing Start Date: 05/16/23 Status: OrderedStart: 90-38-5248asqs 1 tablet by mouth once dailySynthroid 112 mcg Tab 112 mcg = 1 tab(s), Oral, Daily, # 60 tab(s), Refills(s) 0, Pharmacy: [facility], 166, cm, 11/30/22 12:12:00 EDT, Height/Length Dosing, 58.8, kg, 11/30/22 12:12:00 EDT, Weight Dosing Start Date: 02/07/23 Status: OrderedStart: 95-20-7706jpeq 1 tablet by mouth once dailySynthroid 112 mcg Tab 112 mcg = 1 tab(s), Oral, Daily, # 60 tab(s), Refills(s) 0, Pharmacy: [facility], 166, cm, 10/08/22 15:10:00 EDT, Height/Length Dosing, 57.8, kg, 10/08/22 15:10:00 EDT, Weight Dosing Start Date: 10/08/22 Status: OrderedStart: 10-08-2022 End: 02-70-1981txpa 1 tablet by mouth in the morninglevothyroxine (Synthroid, Levoxyl) 112 MCG tablet Take 112 mcg by mouth in the morning. 10/08/2022 0 08/17/2024 DiscontinuedStart: 22-33-1971iwwp 1 tablet by mouth once daily levothyroxine 125 mcg (0.125 mg) Tab 125 mcg = 1 tab(s), Oral, Daily, # 90 tab(s), Refills(s) 3, Pharmacy: [facility], 166, cm, 05/03/22 14:21:00 EST, Height/Length Dosing, 61.2, kg, 05/03/22 14:21:00 EST, Weight Dosing Start Date: 05/03/22 Status: Orderedlevothyroxine (SYNTHROID, LEVOTHROID) 100 MCG tablet Take 125 mcg by mouth in the morning. Activeloratadine 10 mg oral tablet (13 sources)Start: 52-93-7596ylpx 1 tablet by mouth once dailyClaritin 10 mg Tab 10 mg, Oral, Daily, # 10 tab(s), Refills(s) 0, Pharmacy: [facility], 166, cm, 12/05/19 13:03:00 EDT, Height/Length Dosing, 61.6, kg, 12/05/19 13:03:00 EDT, Weight Dosing Start Date: 12/05/19 Status: Ordered Quantity: 10.0 Unit: tab(s) Repeat number: 1magnesium oxide 400 mg oral tablet (5 sources)Start: 08-17-2024 End: 36-86-5736eqmr 1 tablet by mouth once dailymagnesium oxide (Mag-Ox) 400 MG tablet Indications: Nonintractable headache, unspecified chronicitypattern, unspecified headache type Take 1 tablet (400 mg) by mouth Daily 30 tablet 6 08/17/2024 09/16/2024 Activephenazopyridine hydrochloride 200 mg oral tablet (4 sources)Start: 03-09-2023 End: 51-12-9835whpt 1 tablet by mouth three times dailyPyridium 200 mg Tab 200 mg = 1 tab(s), Oral, TID, X 3 day(s), # 9 tab(s), Refills(s) 0, Pharmacy: [facility], 166, cm, 03/09/23 7:33:00 EST, Height/Length Dosing, 58.7, kg, 03/09/23 7:33:00 EST, Weight Dosing Start Date: 03/09/23 Stop Date: 03/12/23 Status: OrderedStart: 02-21-2023 End: 76-43-2633mubx 1 tablet by mouth three times dailyPyridium 200 mg Tab 200 mg = 1 tab(s), Oral, TID, X 3 day(s), # 9 tab(s), Refills(s) 0, Pharmacy: [facility], 166, cm, 02/21/23 13:06:00 EST, Height/Length Dosing, 58.6, kg, 02/21/23 13:06:00 EST, Weight Dosing Start Date: 02/21/23 Stop Date: 02/24/23 Status: OrderedPNV no.95/ferrous fum/folic ac ( ORAL) (3 sources)PNV no.95/ferrous fum/folic ac ( ORAL) Take by mouth in the morning. ActivePNV no.95/ferrous fum/folic ac ( ORAL) Take by mouth daily. Activepolyethylene glycol 3350 800433 mg / potassium chloride 1480 mg / sodium bicarbonate 5720 mg / sodium chloride 26837 mg powder for oral solution (11 sources)Osmotic LaxativeStart: 72-38-0450XaREBDVQ Paige oral powder for reconstitution See Instructions, 1 EA, Refill(s) 0, Prior to colonoscopy., [id number], 166, cm, 11/30/22 12:12:00 EDT, Height/Length Dosing, 58.8, kg, 11/30/22 12:12:00 EDT, Weight Dosing Start Date: 11/30/22 Status: Ordered Quantity: 1.0 Unit: EA Repeat number: 1Prenatal MV-Min-Fe Fum-FA-DHA ( 1 PO) (20 sources) MV-Min-Fe Fum-FA-DHA ( 1 PO) Take by mouth Active Completed/Discontinued Medications MedicationDrug Class(es)DatesSig (Normalized)Sig (Original)ibuprofen 800 mg oral tablet (2 sources)Nonsteroidal Anti-inflammatory DrugStart: 06-01-2021 End: 11-40-6886hyts 1 tablet by mouth every eight hours as neededibuprofen (ADVIL,MOTRIN) 800 mg tablet Take 1 tablet (800 mg total) by mouth every 8 (eight) hours as needed (cramping). 30 tablet 06/01/2021 11/05/2024 Discontinued (Therapy completed)nitrofurantoin, macrocrystals 25 mg / nitrofurantoin, monohydrate 75 mg oral capsule (6 sources)Nitrofuran AntibacterialStart: 09-11-2024 End: 06-21-2309qdei 1 capsule by mouth in the morningnitrofurantoin, macrocrystal-monohydrate, (Macrobid) 100 MG capsule Indications: Urinary tract infection without hematuria, site unspecified Take 1 capsule (100 mg) by mouth in the morning and 1 capsule (100 mg) before bedtime. Do all this for 7 days. 14 capsule 09/11/2024 09/18/2024 ExpiredStart: 02-21-2023 End: 21-68-9287ttvj 1 capsule by mouth every twelve hoursMacrobid 100 mg Cap 100 mg = 1 cap(s), Oral, q12hr, X 5 day(s), # 10 cap(s), Refills(s) 0, Pharmacy: [facility], 166, cm, 02/21/23 13:06:00 EST, Height/Length Dosing, 58.6, kg, 02/21/23 13:06:00 EST, Weight Dosing Start Date: 02/21/23 Stop Date: 02/26/23 Status: Orderedprogesterone (FIRST-PROGESTERONE VGS) 200 mg suppository (2 sources)Start: 03-26-2021 End: 37-71-5629lugugsdmviup (FIRST-PROGESTERONE VGS) 200 mg suppository Indications: Hypothyroid [...] Problems Problem ClassificationProblemDateDocumented DateEpisodic/ChronicAbdominal pain (13 sources)Abdominal zwhh97-21-8685BqmaycvpDjsyxrwzu infection; unspecified site (1 source)Infection due to Escherichia coli; Translations: [Unspecified Escherichia coli [E. coli] as the cause of diseases classified elsewhere]Onset: 20-68-2478LcpyujufPdqnhlpc or abnormal glucose tolerance complicating ; childbirth; or the puerperium (18 sources)History of gestational diabetes mellitus; Translations: [Gestational diabetes mellitus]Onset: 05-19-2021 Resolved: 642617-78-1130PrfiigkuLflnskfowdtcf symptoms and ill-defined conditions (4 sources)Dysuria; Translations: [Dysuria]Onset: 60-52-3235BhwkdxipMzqdbybj; including migraine (13 sources)Migraine without qqbp13-59-9819YwqaovxQkleyhhi; including migraine (6 sources)Headache; Translations: [Nonintractable headache, unspecified chronicity pattern, unspecified headache type]64-52-4344NeakfcsxGmzqyzqpac during ; abruptio placenta; placenta previa (4 sources)Low lying placenta; Translations: [Low lying placenta NOS or without hemorrhage, unspecified trimester]Onset: 768771-85-1145SomxoxbrVsmfadvgsex (15 sources)Hemorrhoids; Translations: [Unspecified hemorrhoids]Onset: 85-46-3828AdedoyckEpqrhpymzzrjv and screening for infectious disease (4 sources)Encounter for screening for human papillomavirus (HPV); Translations: [Contact with and (suspected)exposure to infections with a predominantly sexual mode of transmission]Onset: 061385-99-4441RggggdxrTcysnyffhgjh; infection of eye (except that caused by tuberculosis or sexually transmitteddisease) (4 sources)Qwgzyrhsw34-37-7622BwyqmcfzDdxkauqim disorders (15 sources)Dysmenorrhea; Translations: [Dysmenorrhea, unspecified]Onset: 885106-86-3180KyvdgasPnqhe complications of (5 sources)Endocrine, nutritional and metabolic diseases complicating , unspecified trimester; Translations: [ENDOCRN NUTR MET DZ COMP PG UNS TRI]Onset: 57-48-8709EdoyacjgQskca complications of (2 sources)Thyroid disease in mother complicating , childbirth AND/OR puerperium; Translations: [Endocrine, nutritional and metabolic diseases complicating , unspecified trimester]22-12-1222DrfkkrynWvzue complications of (8 sources)Hypothyroidism in ; Translations: [Endocrine, nutritional and metabolic diseases complicating , unspecified trimester]Onset: 305848-16-0157PsyvtdttAllpb complications of (3 sources)History of gynecological disorder; Translations: [Supervision of with other poor reproductive or obstetric history, unspecified trimester]Onset: 168352-17-2744UirwwwkkWnnzn complications of (2 sources) size does not accord with dates; Translations: [Uterine size- date discrepancy, second trimester]55-26-7117BesbcmkfCkzhb endocrine disorders (4 sources)Lkfznkituidf07-62-5869TxsthmsYiaub eye disorders (4 sources)Eye tccbord18-33-0085ZzcdohvnWxeif female genital disorders (4 sources)Lesion of lkojb88-04-9583ErdgiuwpUcgah female genital disorders (1 source)Noninflammatory disorder of vulva; Translations: [Other specified noninflammatory disorders of vulva and perineum]Onset: 13-79-8816BfyvjfljPufzs female genital disorders (2 sources)Vaginal discharge; Translations: [Other specified noninflammatory disorders of vagina]48-34-3329NvybtnzhBygox gastrointestinal disorders (4 sources)Apvddrkfwzrg19-04-7376HfhipjzwYxsxk gastrointestinal disorders (1 source)Digestive system finding; Translations: [Other specified symptoms and signs involving the digestivesystem and abdomen]Onset: 72-33-3556AglztlavTymsb gastrointestinal disorders (1 source)Constipation, unspecified; Translations: [Constipation, unspecified] Onset: 58-24-5843GkpqjinxUxcqw inflammatory condition of skin (4 sources)Pruritus ani; Translations: [Pruritus ani]Onset: 25-34-5618Axyrdrzd Other lower respiratory disease (13 sources)H/O: respiratory jlourhd77-41-0901MtnudhtqYokgj nutritional; endocrine; and metabolic disorders (12 sources)Weight umil82-17-9236FjhiiunbRpzko nutritional; endocrine; and metabolic disorders (1 source)Abnormal weight loss; Translations: [Abnormal weight loss]Onset: 42-14-3009BzazqnenBwtxj and delivery including normal (20 sources)Encounter for supervision of normal first , first trimester; Translations: [Encounter for supervision of normal , unspecified, unspecified trimester]Onset: 96-00-0873HvcfjjhxJtkrb screening for suspected conditions (not mental disorders or infectious disease) (13 sources)Encounter for screening for malignant neoplasm of cervix; Translations: [Encounter for screening, unspecified]Onset: 12-09-2020 EpisodicResidual codes; unclassified (3 sources)Body mass index 20-24 - normal; Translations: [Body mass index (BMI) 21.0-21.9, adult]Onset: 94-70-1583AzkvdkgrLfyvtujj codes; unclassified (1 source)Family history of malignant neoplasm of digestive organ; Translations: [Family history of malignantneoplasm of digestive organs]Onset: 11-30-2022 EpisodicResidual codes; unclassified (11 sources)Family history of cancer of zjolm63-67-7400JujvysfpHwakntgu codes; unclassified (4 sources)Family history of autism; Translations: [Family history of other mental and behavioral disorders]Onset: 314257-28-3092PvixzyhiUhbbwzpa codes; unclassified (2 sources)Gestation period, 13 weeks; Translations: [13 weeks gestation of ]04-53-2116JpemysnsLulsfcms codes; unclassified (15 sources)History of previous intrauterine growth restricted ; Translations: [Personal history of other complications of , childbirth and the puerperium]Onset: 281573-66-5022MvurvnyvAsarrrbq codes; unclassified (2 sources)Gestation period, 17 weeks; Translations: [17 weeks gestation of ]65-17-3129QxohlsamJpvllvxb codes; unclassified (1 source)Gestation period, 20 weeks; Translations: [20 weeks gestation of ]15-31-5972CsjgnnpwNolauvxq codes; unclassified (7 sources)History of premature rupture of membranes; Translations: [Personal history of other complications of , childbirth and the puerperium]Onset: 047412-20-4158MefzmqkfBlmeaspa codes; unclassified (2 sources)Gestation period, 21 weeks; Translations: [21 weeks gestation of ]85-01-5206RmgablbcKsktumdy codes; unclassified (2 sources)Personal history of other complications of , childbirth and the puerperium; Translations: [Personal history of other complications of , childbirth and the puerperium]Onset: 07-46-1642DyzwrxuyDysjfwpd codes; unclassified (1 source)20 weeks gestation of ; Translations: [20 weeks gestation of ]Onset: 46-05-6809OhljduofYxhcxaha codes; unclassified (2 sources)Gestation period, 25 weeks; Translations: [25 weeks gestation of ]42-38-7288DtgbdhuuJjjttqfm codes; unclassified (2 sources)Gestation period, 28 weeks; Translations: [28 weeks gestation of ]21-87-9400EpvoqzlmXkkmnova codes; unclassified (2 sources)Gestation period, 30 weeks; Translations: [30 weeks gestation of ]08-87-7704AyjlapvkLayqkfif codes; unclassified (2 sources)Gestation period, 32 weeks; Translations: [32 weeks gestation of ]69-03-6691JudgnowhPmrsclc disorders (20 sources)Hypothyroidism, unspecified; Translations: [Hypothyroidism]Onset: 28-90-4098AsgidhrBhswaws disorders (12 sources)Disorder of thyroid, unspecified; Translations: [Disorder of thyroid gland]Onset: 33-72-3101XcsqmihbLbrhkveovzej (13 sources)Body mass index 20-24 - ndsovq23-03-7864Yxjwqkbxwweo (13 sources)Hfi-qygvsg47-22vdcbsr27-19-7851Cszmtznnbvsa (5 sources)Pain of knee zspuyx84-16-8949Gdwnltgglmww (8 sources)Patient encounter -00-4346Dgykheyhbwno (3 sources)Rectum deaafmu80-14-2229Nnrvpuqwdohq (8 sources)Finding of sensation of xtiksiw21-57-6980Rvvssforanoj (1 source)Hx previous FGROnset: 48-01-4590Irmcied tract infections (13 sources)Acute cystitis; Translations: [Acute cystitis without hematuria] Onset: 67-18-0345Wrryzhkd Past or Other Problems Problem ClassificationProblemDateDocumented DateEpisodic/ChronicEarly or threatened labor (6 sources)Premature uterine contraction; Translations: [False labor before 37 completed weeks of gestation, third trimester]Onset: 04-21-2021 Resolved: 107308-25-8171YmzppmmbDixgv complications of (3 sources)Disorder of ; Translations: [Maternal care for other known or suspected poor growth,unspecified trimester, not applicable or unspecified]Onset: 03-03-2021 Resolved: 581059-97-6883SyhmsxmoLgvah complications of (3 sources)Short cervical length in ; Translations: [Cervical shortening, third trimester]Onset: 05-19-2021 Resolved: 060870-25-8939IdhaizyaXjvei complications of (2 sources)Endocrine, nutritional and metabolic diseases complicating , second trimester; Translations: [Endocrine, nutritional and metabolic diseases complicating , second trimester]Onset: 72-35-3013SpbtswrvYjgpz female genital disorders (4 sources)Other specified noninflammatory disorders of vagina; Translations: [OTH SPEC NONINFLAMMATORY D/O VAGINA]Onset: 53-42-0677FvfeupumJhopayfoditkva and other problems of amniotic cavity (3 sources) premature rupture of membranes ; Translations: [ premature rupture of membranes, unspecified as to length of time between rupture and onset of labor, unspecified trimester]Onset: 05-30-2021 Resolved: 553841-77-6906Bedgcgep Results Test NameValueInterpretationReference RangeFacilityUrinalysis macro (dipstick) panel (U)on 83-49-7338Lzbwazdot, UANegativeNegative - 4(70) +++ mg/dLNOMS HealthcareBlood, UANegativeNegative [...] mg/dLNOMS HealthcareNOMS HealthcareUrinalysis macro (dipstick) panel (U)on 92-69-6996Jepeiwvdl, UA NegativeNegative - 4(70) +++ mg/dLNOMS HealthcareBlood, [...] - 1.03N[facility] Urobilinogen, UA0.20.2 - 12 mg/dLNONY HealthcareNOMS HealthcareUS OB FOLLOW UP TRANSABDOMINAL APPROACHon 60-81-6120LD OB FOLLOW UP TRANSABDOMINAL APPROACH FINDINGS: A [...] Delivery: 03/23/25 Gestational Age as of 12/10/2024: 39c7nHcyfkyzjta macro (dipstick) panel (U)on 41-06-9061Sprzbispg, UANegativeNegative - 4(70) +++ mg/dLNOMS HealthcareBlood, UANegativeNegative - 50 Cedric/mcLNOMS HealthcareClarity, UAClearNOMS Healthcare Color, UAYellowNOMS HealthcareGlucose, UANegativeNegative - 2000(110) ++++ mg/dL NOMS HealthcareInterpretation and review of laboratory resultsNormalNONY HealthcareKetones, UANegativeNegative - 160(16) ++++ mg/dLNONY Healthcare Leukocytes, UANegativeNegative - 500+++ Ayana/mcLNOMS HealthcareNitrite, UA NegativeNegative - PositiveNOMS HealthcarepH, UA7.05 - 9NOMS HealthcareProtein, UANegativeNegative - 2000(20) ++++ mg/dLNONY HealthcareSpec Grav, UA1.0101 - 1.03NONY HealthcareUrobilinogen, UA0.20.2 - 12 mg/dLNOSac-Osage HospitalNONY HealthcareGLUCOSE TOLERANCE 3 HOURon 14-45-5902WVDMPWY TOLERANCE 3 HOURHighmg/dL NOM HealthcareComment on above:GLU FAST 89 (<95) Col: 12/12/24 0842 GLU 1HR 178 (<180) Col: 12/12/24 0949 GLU 2HR 156H (<155) Col: 12/12/24 1041 GLU 3HR 103 (<140) Col: 12/12/24 1147 Interpretation and review of laboratory resultsAbnormalNONY HealthcareCLINISYNC NOM HealthcareALL CBC WITH AUTO DIFFon 55-98-3119WEFFUBNAV ABSOLUTE KTMN0JNKSSac-Osage HospitalBasophils/100 WBC (Bld)0.3 %0.2 - 2.0 %NOMS HealthcareEosinophils/100 WBC (Bld)0.5 %Low0.9 - 7.0 %[facility] DivisionErythrocyte distribution width (RBC) [Ratio]12.4 %11.0 - 15.0 %NOMPike County Memorial HospitalHematocrit (Bld) [Volume fraction]32.4 %Low36.0 - 48.0 %[facility] DivisionHemoglobin (Bld) [Mass/Vol]10.8 g/dLLow12.0 - 16.0 g/dLNOSac-Osage HospitalIMMATURE GRANULOCYTES ABS AUTO0.03NOSac-[facility] Immature granulocytes/100 WBC (Bld)0.3 %0.0 - 0.5 %[facility] DivisionInterpretation and review of laboratory resultsAbnormalHCA Midwest DivisionLYMPHOCYTES ABSOLUTE AUTO1.3NOSac-Osage HospitalLymphocytes/100 WBC (Bld)14.4 %Low20.5 - 60.0 %[facility] HospitalH (RBC) [Entitic mass]33.2 pg26.7 - 34.0 pgNOSac-Osage HospitalMCHC (RBC) [Mass/Vol]33.3 g/dL29.9 - 35.2 g/dLNONY HealthcareMCV (RBC) [Entitic vol]99.7 fL High81.0 - 99.0 fLNONY HealthcareMONOCYTES ABSOLUTE AUTO0.4N[facility] Healthcare Monocytes/100 WBC (Bld)4.6 %1.7 - 12.0 %NOMS HealthcareNEUTROPHILS ABSOLUTE AUTO 7HighNONY HealthcareNeutrophils/100 WBC (Bld)79.9 %High43.0 - 75.0 %NOMS HealthcarePlatelet mean volume (Bld) [Entitic vol]10.5 fL9.5 - 13.5 fLNONY HealthcareTBH EO #0NOMS HealthcareTBH TQD333SKWV HealthcareTBH RBC3.25LowNOMS HealthcareTBH WBC8.8NONY HealthcareCLINISYNCNOMS HealthcareUrinalysis macro (dipstick) panel (U)on 04-89-9713Padohjtlq, UANegativeNegative - 4(70) +++ mg/dL NOMS HealthcareBlood, UANegativeNegative - 50 Cedric/mcLNOMS HealthcareClarity, UA ClearNOMS HealthcareColor, UAYellowNOMS HealthcareGlucose, UANegativeNegative - 1999(110) ++++ mg/dLNOMS HealthcareInterpretation and review of laboratory resultsNormalNONY HealthcareKetones, UANegativeNegative - 160(16) ++++ mg/dLNOMS HealthcareLeukocytes, UANegativeNegative - 500+++ Ayana/mcLNOMS HealthcareNitrite, UANegativeNegative - PositiveNOMS HealthcarepH, UA75 - 9NOMS HealthcareProtein, UANegativeNegative - 2000(20) ++++ mg/dLNOMS HealthcareSpec Grav, UA1.011 - 1.03 NOMS HealthcareUrobilinogen, UA0.20.2 - 12 mg/dLNONY HealthcareNONY Healthcare Urinalysis macro (dipstick) panel (U)on 47-28-2928Qlpdrztri, UANegativeNegative - 4(70) +++ mg/dLNOMS HealthcareBlood, UANegativeNegative - 50 Cedric/mcLNOMS HealthcareClarity, UAClearNOMS HealthcareColor, UAYellowNOMS HealthcareGlucose, UAPositiveNegative - 1999(110) ++++ mg/dLNONY HealthcareInterpretation and review of laboratory resultsAbnormalNOMS HealthcareKetones, UANegativeNegative - 160(16) ++++ mg/dLNONY HealthcareLeukocytes, UANegativeNegative - 500+++ Ayana/mcL NOM HealthcareNitrite, UANegativeNegative - PositiveNOMS HealthcarepH, UA65 - 9 NOMS HealthcareProtein, UANegativeNegative - 1999(20) ++++ mg/dLNONY Healthcare Spec Grav, UA1.0151 - 1.03NONY HealthcareUrobilinogen, UA1.00.2 - 12 mg/dLNONY HealthcareNONY HealthcareALL THYROID STIM HORMONEon 87-95-3065SCR Qn2.68 m[IU]/L [facility] DivisionCLINISYNCNOMS HealthcareAFP, SERUM, OPEN SPINA BIFIDAon 17-35-5978HSC MOM0.82.[facility] DivisionAFP VALUE34.7 ng/mL.[facility] HealthcareCOMMENT: Comment.[facility] DivisionComment on above:Alie Moon, Ph.D., [facility] Director References: Available Upon Request. Multiples Of Median Cutoffs For AFP Elevations Murphy 2.5 Black 2.8 IDD 2.0 Twins 4.5 Abbreviation Definitions IDD - Insulin Dep Diabetes OSBR - Open Spina Bifida Risk For further inquiries contact [facility] at [phone]. This test was developed and its performance characteristics determined by [employer]. It has not been cleared or approved by the Food and Drug Administration. Performed at: [facility] [address] [place], [place] [id number] [facility] Clerk: Pily Meraz [facility], Phone: [phone] GEST. AGE ON COLLECTION DATE17.3. weeksNONY HealthcareGESTAT. AGE BASED ONLMP. [facility] HealthcareComment on above:Recalculations are not recommended when gestational dating by LMP and ultrasound are within 10 days. INSULIN DEP DIABETESNo.[facility] HealthcareINTERPRETATIONComment.[facility] Comment on above:Interpretation: Screen Negative This result [...] Customer Services to discuss available options. The [employer] recommends amniocentesis be offered to women age 35 and older. MATERNAL AGE AT EDD25.1. yrNONY HealthcareMULTIPLE GESTATIONNo.[facility] Healthcare OSBR RISK 1 [id number].[facility] HealthcareRACECaucasian.[facility] HealthcareRESULTSReport. [facility] HealthcareTEST RESULTS:Negative.[facility] Midwest DivisionHqsrzdzworHOXOFR067. lbsNONY HealthcarePREGNANCY N N LMP [id number] 2 17 N 1 Y 134 N N N N N White/ CLINISYNCNOSac-Osage HospitalUrinalysis macro (dipstick) panel (U)on 10-15-2024 Bilirubin, UANegativeNegative - 4(70) +++ mg/dLNONY HealthcareBlood, UANegative Negative - 50 Cedric/mcLNONY HealthcareClarity, UAClearNONY HealthcareColor, UA YellowNOMS HealthcareGlucose, UANegativeNegative - 2000(110) ++++ mg/dLCASTLEVIEW HOSPITAL HealthcareInterpretation and review of laboratory resultsNormalHCA [facility] Division Ketones, UANegativeNegative - 160(16) ++++ mg/dLCASTLEVIEW HOSPITAL HealthcareLeukocytes, UA NegativeNegative - 500+++ Ayana/mcLNONY HealthcareNitrite, UANegativeNegative - PositiveNONY HealthcarepH, UA65 - 9NONY HealthcareProtein, UANegativeNegative - 2000(20) ++++ mg/dLNONY HealthcareSpec Grav, UA1.0151 - 1.03NONY Healthcare Urobilinogen, UA0.20.2 - 12 mg/dLHannibal Regional Hospital HealthcareGLUCOSE 1 HOURon 56-07-3172Khgzkqm [Mass/Vol]108 mg/dLNINF - 130 mg/dLCASTLEVIEW HOSPITAL HealthcareCLINISYNC HCA Midwest DivisionALL MISCELLANEOUS TESTon 56-77-2186NAQHDKRQWADLA TESTCOMMENT.[facility] HealthcareComment on above:Test Ordered: [id number] Parvovirus B19, Human, IgG/IgM Parvovirus B19, IgG 0.1 index BN Reference Range: 0.0-0.8 Negative <0.9 Equivocal 0.9 - 1.1 Positive >1.1 Parvovirus B19, IgM 0.1 index Reference Range: 0.0-0.8 Negative <0.9 Equivocal 0.9 - 1.1 Positive >1.1 Performed at: [address] [id number] Animal Hospital Clerk: Darion Moon MD, Phone: [phone] Performed at: [address] [id number] Animal Hospital Clerk: Madi Maloney PhD, Phone: [phone] Parvovirus B19 (Human), IgG, IgM CLINISYNCNOMS HealthcareALL MISCELLANEOUS TESTon 49-08-5627QAYETHYRXRXLG TEST COMMENT.NOMS HealthcareComment on above:Test Ordered: [id number] Parvovirus B19, Human, IgG/IgM Parvovirus B19, IgG 0.1 index Reference Range: 0.0-0.8 Negative <0.9 Equivocal 0.9 - 1.1 Positive >1.1 Parvovirus B19, IgM 0.1 index Reference Range: 0.0-0.8 Negative <0.9 Equivocal 0.9 - 1.1 Positive >1.1 Performed at: [address] [id number] Animal Hospital Clerk: Darion Moon MD, Phone: [phone] Performed at: [address] [id number] Animal Hospital Clerk: Madi Maloney PhD, Phone: [phone] Parvovirus B19 (Human), IgG, IgM CLINISYNCNOMS HealthcareALL CBC WITH AUTO DIFFon 45-87-3365CQHJSYDXV ABSOLUTE QAMB8VBLH HealthcareBasophils/100 WBC (Bld)0.5 %0.2 - 2.0 %[facility] Eosinophils/100 WBC (Bld)0.5 %Low0.9 - 7.0 %NOMS HealthcareErythrocyte distribution width (RBC) [Ratio]12.3 %11.0 - 15.0 %NOMS HealthcareHematocrit (Bld) [Volume fraction]38.5 %36.0 - 48.0 %NOMS HealthcareIMMATURE GRANULOCYTES ABS AUTO0.02NONY HealthcareImmature granulocytes/100 WBC (Bld)0.3 %0.0 - 0.5 % [facility] DivisionInterpretation and review of laboratory resultsAbnormalNONY HealthcareLYMPHOCYTES ABSOLUTE AUTO1.6NOMS HealthcareLymphocytes/100 WBC (Bld)21 %20.5 - 60.0 %[facility] HospitalH (RBC) [Entitic mass]33.5 pg26.7 - 34.0 pgFulton State HospitalHC (RBC) [Mass/Vol]35.6 g/mLLuvl12.9 - 35.2 g/dLFulton State HospitalV (RBC) [Entitic vol]94.1 fL81.0 - 99.0 fLHCA Midwest DivisionMONOCYTES ABSOLUTE AUTO 0.4NOMS HealthcareMonocytes/100 WBC (Bld)5.1 %1.7 - 12.0 %[facility] NEUTROPHILS ABSOLUTE AUTO5.6NOSac-Osage HospitalNeutrophils/100 WBC (Bld)72.6 %43.0 - 75.0 %[facility] Midwest DivisionPlatelet mean volume (Bld) [Entitic vol]11.1 fL9.5 - 13.5 fLHCA Midwest DivisionTBH EO #0NOSac-Osage HospitalTBH DRR093EUTUMissouri Southern Healthcare RBC4.09[facility] WBC7.8HCA Midwest DivisionCLINISYNCCBC and differentialon 09-64-5649Clntzjepbl (Bld) [Volume fraction]39 %36 - 46 %[facility] Platelets (Bld) [#/Vol]211 10*3/uL150 - 399 10*3/uLProMedica Health SystemWBC (Bld) [#/Vol]7.8 10*3/mL3.3 - 10.0 10*3/mLWashington County Tuberculosis HospitalMedica Ashtab[facility] SystemDrug Screen, Urineon 19-66-7225Zimvrgsrbvo/MethamphetamineNegativeProMedica Health System BarbituratesNegativeProMedica Health SystemBenzodiazepinesNegativeProMedica Health SystemCocaine MetaboliteNegativeWashington County Tuberculosis HospitalMedica Health SystemMethadoneNegative ProMedica Health SystemOpiatesNegativeWashington County Tuberculosis HospitalMedica Health SystemOxycodoneNegative ProMedica Health SystemPhencyclidineNegativeProMedica Health SystemThc Marijuana, UrineNegativeCleveland Clinic Children's Hospital for RehabilitationHBV surface Ag IA Qlon 08-21-2024 Hepatitis B Surface AntigenNegativeCleveland Clinic Children's Hospital for RehabilitationHCV Ab IA Qlon 83-47-0137DPU Ab Ql (S)Non-ReactiveCleveland Clinic Children's Hospital for RehabilitationHIV 1+2 Ab+HIV1 p24 Ag IA Qlon 63-32-3685DUV 1&2 AB/AGNon-ReactiveCleveland Clinic Children's Hospital for RehabilitationHemoglobin A1con 00-25-4468LhQ2y (Bld) [Mass fraction]5.6 %4.0 - 6.0 %[facility] Hospital for RehabilitationLaboratory - Hematology and Cell countson 42-54-3447Alpthxbsmg (Bld) [Mass/Vol]13.7 g/dL12.0 - 16.0 g/dLHCA Midwest DivisionNo Panel Informationon 53-67-0690RSYV HealthcareRubella IGG immune statuson 89-37-8819Tbgtqnb immune IgGimmuneCleveland Clinic Children's Hospital for RehabilitationT. pallidum IgG+IgM IA Ql (S)Ordered By: Nadira Salazar on 44-06-7205HyzdzvorEjx-ReactiveCleveland Clinic Children's Hospital for RehabilitationTSHon 70-52-2778Uyeiang Stimulating (3Rd Generation) Hormone/ Tsh7.721PKettering Health – Soin Medical CenterType and screenon 39-94-0027Iaq/Rh(D)PositiveCleveland Clinic Children's Hospital for RehabilitationHCG ( test) Ql (U)on 31-81-9846Bwtiiyiwshypbz and review of laboratory resultsAbnormalHCA Midwest DivisionPreg Test, UrPositiveNegativeHannibal Regional Hospital HealthcareUS OB TRANSVAGINALon 22-04-6143GZ OB TRANSVAGINALEXAM: US OB TRANSVAGINAL HISTORY: Dating. [...] II, MD, PHD at 20-Aug-2024 10:22:40 AM [facility] TeleradiologyNormalNot AvailableComment on above:Order Comment: US OB TRANSVAGINAL No LMP recorded.Urinalysis macro (dipstick) panel (U)on 58-65-4875Tbruoclpb, UA NegativeNegative - 4(70) +++ mg/dLNOMS HealthcareBlood, [...] - 12 mg/dLNOMS HealthcareNOMS HealthcareAmbulatory Visit Summaryon 48-41-2855Kxhwnhffej Visit SummaryAmbulatory Visit Summary YANA CHURCH :2000 [...] Where: [facility] [address] [place] [address], [address] [place] [id number] Medications What How Much When Why Instructions [...] you for choosing us for your care. [facility] Medicine Office/Clinic Noteon 43-63-0660Ekrnyy Medicine Office/Clinic NoteFagoddard memorial hospital Medicine Office/Clinic Note Chief Complaint Establish [...] anymore, managed with tylenol Social History: Occupation: [employer] Family life: home with and daughter Diet: no restrictions Caffeine: 1 cup coffee/day Exercise: active lifestyle Alcohol use: denies Drug use: denies Smoking status: denies Health Maintenance: Routine labs: thyroid labs 06/2024, declines further labs Pap (21-64yo): 04/2023 Specialists: Ur Coordinator: krysta Dentist: krysta OBGYN: Joanna Review of [...] other medications. Recheck TSH/T (more content not included)...[facility] Comment on above:Result Comment: Electronically Signed By: Marta Rivas\.br\Date and Time Signed: 07/09/24 08:35 EDTAmbulatory Visit Summaryon 99-32-7691Fkeotuhfxs Visit SummaryAmbulatory Visit Summary YANA CHURCH :2000 [...] [facility] [address] [facility] [place] [address]- Medications What How Much When Why Instructions New amoxicillin-clavulanate (Augmentin 875 mg-125 mg Tab) 1 Tablets By Mouth Every 12 hours Acute sinusitis Duration: 10 Days Pickup at [facility] Unchanged levothyroxine (Synthroid 100 mcg Tab) 1 Tablets By Mouth Every day Pharmacy Information [facility]: [address] [place], [place] [id number] [phone] Allergies No Known Allergies Problems Ongoing - [...] you for choosing us for your care. [facility] Medicine Office/Clinic Noteon 30-09-9035Xhnmju Medicine Office/Clinic NoteFagoddard memorial hospital Medicine Office/Clinic Note Chief Complaint possible [...] for 10 day(s), 20 tab(s), Refill(s) 0, [facility], 166, cm, 07/05/24 15:34:00 EDT, Height/Length [...] When Contact Information Julienne BARTLETT, Ham Montano, [facility], [address], [address] [phone] Additional Instructions: as scheduled with Marta Patient Education Sinus Infection, Adult, Zqbc-am-Sslq How to Perform a Sinus Rinse, Yhav-ym-Rcdh Problem List/Past Medical History Ongoing Acute sinusitis [...] poliovirus vaccine, inactivated (more content not included)...Normal [facility] HospitalComment on above:Result Comment: Electronically Signed By: Julienne BARTLETT, Ham Montano\.br\Date and Time Signed: 07/05/24 16:06 EDT CHEMISTRYOrdered By: SYSTEM SYSTEM on 19-92-9321Fxov T4 [Mass/Vol]0.82 ng/dL Normal0.58 - 1.64 ng/dLRemisol ChemTSH Qn3.09 m[IU]/LNormal0.34 - 5.60 mcIU/mL Remisol ChemFree T4on 68-02-5324Ezqd T4 [Mass/Vol]0.82 ng/dLNormal0.58-1.64 [facility] HospitalComment on above:Performed By: #### [id number] #### [facility] [address] [place], [place] [address]LDIru 41-18-5588KEA Qn3.09 m[IU]/LNormal0.34-5.60[facility] HospitalComment on above:Performed By: #### [id number] #### [facility] [address], [place] [address]RPB EXTRACTION AND HOLDon 65-70-2997TiipooNhufkm Puregene Reagents from QiagenInvalid Interpretation [facility] on above:Order Comment: Release to patient->AutomaticNucleic Acid Concentration 273.2 ng/uLInvalid Interpretation [facility] on above: Order Comment: Release to patient->AutomaticNucleic Acid Purity1.90Invalid Interpretation Code1.70-2.10[place] [facility] on above:Order Comment: Release to patient->AutomaticSignature .Invalid Interpretation [facility] on above:Order Comment: Release to patient->AutomaticStorage and Special InstructionsInvalid Interpretation [facility] on above:Order Comment: Release to patient->AutomaticResult Comment: The extracted DNA is stored in the [facility] at -70 degrees C and is being held for future testing. If there are any questions regarding this sample, please contact the [facility] at [phone].Total DNA Yield82.0 ugInvalid Interpretation [facility] on above:Order Comment: Release to patient->AutomaticTotal Volume REC005 ulInvalid Interpretation Code [facility] on above:Order Comment: Release to patient->AutomaticIGP,APTIMA HPV,AGE GDLNon 56-55-6369QPO GDLN ACOG TESTINGNote. NOMS HealthcareComment on above:TESTS RESULT FLAG UNITS REF RANGE LAB Clinician Provided Cytology Information Source.............Cervix;Endocervix No. of containers..01 ThinPrep Vial Age Maicolo ACOG Francheska... FLAG LEGEND: L-Low Normal,H-High Normal,LL-Alert Low,HH-Alert High <-Panic Low,>-Panic High,A-Abnormal,AA-Critical Abnormal Performed at: 01 = [address] [place] [address] Sugey Torres MD, IGP, RFX APTIMA HPV ASCUNote.[facility] HealthcareComment on above:TESTS RESULT FLAG UNITS REF RANGE LAB DIAGNOSIS: 02 NEGATIVE FOR INTRAEPITHELIAL LESION OR MALIGNANCY. Specimen adequacy: 02 Satisfactory for evaluation. Endocervical and/or squamous metaplastic cells (endocervical component) are present. Performed by: 02 Yudy Rhoades, Animal Hospital Office Supervisor ([facility]) . 02 Note: Note 02 The Pap [...] <-Panic Low,>-Panic High,A-Abnormal,AA-Critical Abnormal Performed at: [address] [address] Sugey Torres MD, Performed at: = - [facility] [address] [id number] Animal Hospital Clerk: Sugey Torres MD, Phone: [phone] Performed at: - [address] [id number] Animal Hospital Clerk: Sugey Torres MD, Phone: [phone] BRUSH-SPATULA CERVIX ENDOCERVIX CLINISYNCNOMS HealthcareCoding Summary.on 77-33-6145Przdml Summary. OUHEWxlz59NQv0zEf+PGhlYWQ+XN1GDGBgA55eeWDckT3sZ1ECODiSQasiYQITBEaFNdHfskDlUC4riX NjZXJu [file] T27eoPCwp9H0H (more content not included)...NormalBarnesville Hospital CHEMISTRYOrdered By: SYSTEM SYSTEM on 86-49-3520Qzjk T4 [Mass/Vol]0.92 ng/dL Normal0.58 - 1.64 ng/dLRemisol [facility] Qn3.37 m[IU]/LNormal0.34 - 5.60 mcIU/mL Remisol ChemConsent for Treatmenton 32-92-2972Naktjca for Treatment [id number]#1.00TIFFNormalBarnesville HospitalFree T4on 56-08-1809Pxic T4 [Mass/Vol]0.92 ng/dLNormal0.58-1.64Barn[facility] HospitalComment on above:Performed By: #### [id number] #### [facility] [address] [place] [address]GAHyl 26-47-2636URO Qn3.37 m[IU]/LNormal0.34-5.60[facility] HospitalComment on above:Performed By: #### [id number] #### [facility] [address] [place], [place] [address]Xmtnyxwxeg Visit Summaryon 95-78-1291Ssuytctyse Visit Summary YANA CHURCH :2000 Visit Date:08/08/2023 [...] you for choosing us for your care. [facility] Medicine Office/Clinic Noteon 47-48-1862Bbzgzs Medicine Office/Clinic NoteChief Complaint f/u for hypothyroid [...] Unspecified hemorrhoids) Resolved, no additional complaints. saw [facility] for screening colonoscopy/diagnostic colonoscopy due [...] with voice recognition artificial intelligence software, specifically [employer] Tux, CloudHelix and or Dynamighty. Substitutions may have occurred due to the [...] Social History Alcohol Curren (more content not included)...[facility] HospitalComment on above:Result Comment: Electronically Signed By: Ya [...] Follow these instructions at home: ? Take qbeh-pxt-bnbchfz and prescription medicines only as told by [...] provider. Document Revised: 03/09/2022 Document Reviewed: 03/09/2022 [employer] Patient Education ? 2022 EdSurge. Gastroenterology Hemorrhoids Hemorrhoids are swollen veins in and around the rectum or anus. There are two types of hemorrhoids: ? Internal hemorrhoids. These occur in the veins that are just inside the rectum. They may poke through to the outside and become irritated and painful. ? External hemorrhoids. These occur in the veins that are (more content not included)...NormalBarnesville HospitalPAP 202781su 05-20-2023. trachomatis rRNA FRANSISCO+probe Ql (Cvx)NegativeInvalid Interpretation CodeNegative [facility] HospitalComment on above:Performed By: #### [id number] ####[facility] Ddyrjmupsb[address] [facility] Systemradhanassau university medical centeramerico [id number] Cytology report Cyto stain Doc (Cvx/Vag)NoteInvalid Interpretation [facility] Medical CenterComment on above:Result Comment: TESTS RESULT FLAG UNITS REF RANGE LAB Clinician Provided Cytology Information Source.............Cervix No. of containers..01 ThinPrep Vial DIAGNOSIS: 01 NEGATIVE FOR INTRAEPITHELIAL LESION OR MALIGNANCY. Specimen adequacy: 01 Satisfactory for evaluation. Endocervical and/or squamous metaplastic cells (endocervical component) are present. Performed by: 01 Erum Mckenzie, Animal Hospital Office Supervisor ([facility]) . 01 Note: Note 01 The Pap [...] <-Panic Low,>-Panic High,A-Abnormal,AA-Critical Abnormal Performed at: [address] [address] Sugey Torres MD, Ijjjugmvd By: #### [id number] ###[facility] [address] [place], [id number] 16+18+31+33+35+39+45+51+52+56+58+59+66+68 DNA Probe+sig amp Ql (Cvx)Negative Invalid Interpretation CodeNegativeFisher Grace Medical CenterComment on above: Result Comment: This nucleic acid amplification test detects fourteen high-risk HPV types (16,18,31,33,35,39,45,51,52,56,58,59,66,68) without differentiation.Performed By: #### [id number] ####[facility] Qjshovffzs008 [facility], [id number]. gonorrhoeae rRNA FRANSISCO+probe Ql (Cvx) NegativeInvalid Interpretation CodeNegCleveland Clinic Union HospitalComment on above:Performed By: #### [id number] ####[facility] Abwatidytv552 [facility] [id number]. vaginalis rRNA FRANSISCO+probe Ql (Unsp spec)NegativeInvalid Interpretation CodeNegativeBarnesville Hospital Comment on above:Result Comment: Performed at: [facility] [address] [place], [place] [id number] MD Brian Mayes Performed at: =G [facility] [place] [address] [place], [place] [id number] MD Brian MayesPerformed By: #### [id number] ####[facility] [address] [place] [address] [id number] Medicine Office/Clinic Noteon 33-28-3893Jgagac Medicine Office/Clinic NoteChief Complaint Pap, f/u UTI [...] was performed without the assistance of medical transcription supervisor as witness Pelvic Exam: Vulva: normal appearance, [...] up every 3-5 years based on results DATA SCIENCE AND IOT MANAGER referral if needed for further testing [...] placed F/u 6 months (more content not included)...NormalBarnesville Hospital Comment on above:Result Comment: Electronically Signed By: Ya Wang\.irvin\Date and Time Signed: 05/16/23 15:38 ESTPAP [id number] 05-16-2023 Gynecological Body SiteCERVIXNormalBarnesville HospitalComment on above: Performed By: #### [id number] ####[facility] [address] [id number] Educationon 57-65-1043Bfumqym Education Obstetrics and Gynecology Pap Test Why [...] including vitamins, herbs, eye drops, creams, and zxbt-iky-icavufa medicines. ? Any bleeding problems you have. [...] provider. Document Revised: 06/05/2021 Document Reviewed: 06/05/2021 [employer] Patient Education ? 2022 EdSurge. Oncology Cancer Screening for Women A cancer [...] to asbestos. How i (more content not included)...NormalBarnesville HospitalConsent for Treatmenton 06-12-9485Zjtmezg for Treatment [id number]#1.00TIFFNormalBarnesville HospitalUA With Cult Reflexon 12-37-9997Jadtnznco Ql (U)NegativeNormalNegative [facility] HospitalComment on above:Performed By: #### [id number] ####[facility] [address] [place] [address] Clarity (U)CLEARNormalClearBarnesville HospitalComment on above:Performed By: #### [id number] ####[place] [address] [place], [place] [address]Ostzw (U)YELLOWNormalYellowBarnesville Hospital Comment on above:Performed By: #### [id number] ####[facility] Z[address]gre[address] [place], [place] [address]Ydtuagyyky cells.squamous LM.HPF (Urine sed) [#/Area]0-7Aqszjz8-0Pgguev Grace Medical CenterComment on above: Performed By: #### [id number] ####[facility] [address] [place], [place] [address]Iqkvteh Test strip (U) [Mass/Vol]NegativeNormal NegativeBarnesville HospitalComment on above:Performed By: #### [id number] ####[facility] [address] [place] [address] Hemoglobin Ql (U)NegativeNormalNegativeBarnesville HospitalComment on above:Performed By: #### [id number] ####[facility] Z[address]reyyp[address] [place], [place] [address]Ixwypvl (U) [Mass/Vol]NegativeNormalNegCleveland Clinic Union HospitalComment on above:Performed By: #### [id number] ####[address] [address] [place].plasma/[place].RBC (Bld) [Mass ratio]9-7Fukify6-2Wolsmh Grace Medical CenterComment on above:Performed By: #### [id number] ####[address] [address]Otgkiae Ql (U)NegativeNormal NegativeBarnesville HospitalComment on above:Performed By: #### [id number] ####[address] [address]iN (U)6.0 [pH]Invalid Interpretation Code5.0-9.0Barnesville HospitalComment on above:Performed By: #### [id number] ####[address] [address]Mzwtkdv (U) [Mass/Vol]NegativeNormal NegativeBarnesville HospitalComment on above:Performed By: #### [id number] ####[address] [address] Specific gravity (U) [Rel density]>=1.030Invalid Interpretation Code1.005-1.030 [facility]ville HospitalComment on above:Performed By: #### [id number] ####[address] [address]Hzwt of Urine collection methodClean CatchNormalBarnesville HospitalComment on above:Performed By: #### [id number] ####[address] [address]Rhnlvmomqutr Qn (U)0.2 {Mehdi'U}/dLNormal0.0-1.0 [facility]ville HospitalComment on above:Performed By: #### [id number] ####[address] [address]XJD Auto Ql (U)NegativeNormalNegativeBarnesville HospitalComment on above: Performed By: #### [id number] ####[address] [place], [place] [address]KRV LM.HPF (Urine sed) [#/Area]2-3Qtcfle7-3Ruhnum Grace Medical CenterComment on above:Performed By: #### [id number] ####[facility] [address] [place], [place] [address]DFTAEFTAIL Ordered By: Alphonso Wang on 37-27-6065Pwlgezoak Ql (U)Negative (03/24/23 11:15 AM)NormalNegativeHILLCREST HOSPITAL [facility] UA Auto SSClarity (U)Clear (03/24/23 11:15 AM)NormalClearFMCCURTAIN MEMORIAL HOS[facility]ITAL – IDABEL UA Auto SSColor (U)Yellow (03/24/23 11:15 AM)NormalYellowHILLCREST HOSPITAL PRY[facility] UA Auto SSEpithelial cells.squamous LM.HPF (Urine sed) [#/Area]0-2 /HPFNormal0-2/HPFHILLCREST HOSPITAL PRY[facility] UA Auto SSGlucose Test strip (U) [Mass/Vol]Negative (03/24/23 11:15 AM)NormalNegativeHILLCREST HOSPITAL [facility] UA Auto SSHemoglobin Ql (U)Negative (03/24/23 11:15 AM)NormalNegativeHILLCREST HOSPITAL [facility] UA Auto SSKetones (U) [Mass/Vol]Negative (03/24/23 11:15 AM)NormalNegativeHILLCREST HOSPITAL PR[facility] UA Auto SSLithium.plasma/[place].RBC (Bld) [Mass ratio]0-3 /HPFNormal0-3/HPFHILLCREST HOSPITAL PR[facility] UA Auto SSNitrite Ql (U)Negative (03/24/23 11:15 AM)NormalNegativeHILLCREST HOSPITAL PR[facility] UA Auto SSpH (U)6.0 *NA* (03/24/23 11:15 AM)Invalid Interpretation Code5.0 - 9.0H[facility] UA Auto SSProtein (U) [Mass/Vol]Negative (03/24/23 11:15 AM)NormalNegativeHILLCREST HOSPITAL PR[facility] UA Auto SSSpecific gravity (U) [Rel density] >=1.030 *NA* (03/24/23 11:15 AM)Invalid Interpretation Code1.005 - 1.030H[facility] UA Auto SSUA Spec DescClean Catch (03/24/23 11:15 AM)NormalHILLCREST HOSPITAL PRYOR [facility] UA Auto SSUrobilinogen Qn (U)0.9434043 {Mehdi'U}/dLNormal0.0 - 1.0 EU/dLHILLCREST HOSPITAL PRYOR [facility] UA Auto SSWBC Auto Ql (U)Negative (03/24/23 11:15 AM)NormalNegativeHILLCREST HOSPITAL [facility] UA Auto SSWBC LM.HPF (Urine sed) [#/Area]0-5 /HPFNormal0-5/HPFHILLCREST HOSPITAL PRY[facility] UA Auto SST3 Freeon 84-69-5553Alss T3 [Mass/Vol]2.9 pg/mL Invalid Interpretation Code2.0-4.4Fisher Grace Medical CenterComment on above: Result Comment: Performed at: [facility] [address] [id number] PhD Haider BarrazaPerformed By: #### [id number], [id number], [id number] ####[facility] [address] [place], [place] [address]LR Retroperitoneal Completeon 52-06-8969EY Retroperitoneal CompleteExam Date/Time: 03/22/2023 09:49 EST Reason [...] Taylor MD Transcribed by: RAZIA Technologist: Hussain Grace Medical CenterCHEMISTRY Ordered By: SYSTEM SYSTEM on 79-65-3854Vxnx T4 [Mass/Vol]1.10 ng/dLNormal0.58 - 1.64 ng/dLRemisol ChemTSH Qn0.90 m[IU]/LNormal0.34 - 5.60 mcIU/mLRemisol Chem Consent for Treatmenton 17-19-5420Azzkczn for Treatment [id number]#1.00TIFFVan Wert County HospitalFree T4on 60-69-7286Zfaa T4 [Mass/Vol]1.10 ng/dLNormal0.58-1.64Barn[facility]ville HospitalComment on above:Performed By: #### [id number], [id number], [id number] ####[facility] [address] [place], [place] [address]CKDmm 28-39-2638UUK Qn0.90 m[IU]/LNormal0.34-5.60Barn[facility]ville HospitalComment on above:Performed By: #### [id number], [id number], [id number] ####[facility] I[address] [place] [address] Urineon 87-56-2849Bsbkwsyx identified Cx Nom (U)Microbiology PROCEDURE: Urine Culture [...] Locations R1: This test was performed at: [facility], [address] [place] [address], [id number] [place] [address], LhprnhQxdfeiVan Wert County HospitalComment on above:Performed By: #### [id number] ####[facility] [address] Ashtonnassau university medical centeramericoSA[place], [place] [address]Cifmby Medicine Office/Clinic Noteon 04-00-5975Fqkjno Medicine Office/Clinic NoteChief Complaint 2 wk f/u [...] due to her gallbladder. 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 She is able to schedule [...] office today shows: Negat (more content not included)...[facility] County HospitalComment on above:Result Comment: Electronically Signed By: Ya Wang\.br\Date and Time Signed: 03/11/23 06:06 EST\.br\Electronically Co-Signed By: Annetta Blackburn\.br\Date and Time Co-Signed: 03/09/23 12:22 ESTAmbulatory Visit Summaryon [id number] Visit Summary YANA CHURCH :2000 Visit Date:03/09/2023 Ambulatory Visit Instructions Your Diagnosis BMI 21.0-21.9, adult Feeling of incomplete bladder emptying Other cystitis with hematuria Hypothyroidism Tests Performed Urnls Dip Stick Auto w/o Microscopy POC 62677 Your Care Team Attending Physician - Ya Wnag Primary Care Physician - Ya Wang This [...] 10:00 AM EDT With: Ya Wang Where: [facility] Primary CareNormalRecurrent UTI (urinary tract infection), pp_set_radiology_subspecialty, [facility]\.br\ Medicati ons\.br\ What How Much When Why Instructions\.br\ New cephalexin (Keflex 500 mg Cap) 1 Capsules By Mouth 4 times a day Feeling of incomplete bladder emptying Recurrent UTI (urinary tract infection) Duration: 7 Days Pickup at [facility]\.br\ New phenazopyridine (Pyridium 200 mg Tab) 1 Tablets By Mouth 3 times a day Feeling of incomplete bladder emptying Recurrent UTI (urinary tract infection) Duration: 3 Days Pickup at [facility]\.br\ Unchanged levothyroxine (Synthroid 112 mcg Tab) [...] instructions Prior to colonoscopy. \.br\ Pharmacy Information\.br\ [facility]: [address] [place], [place] [id number] [phone]\.br\ Test Results\.br\ Urnls Dip Stick Auto w/o Microscopy POC 52662 (03/09/2023)\.br\ Bilirubin Urine Dipstick - Negative\.br\ Blood Urine Dipstick - Trace-intact\.br\ Glucose Urine Dipstick - Negative\.br\ Ketones UrineDipstick - Negative\.br\ Leukocytes Urine Dipstick - Trace\.br\ Nitrite Urine Dipstick - Negative\.br\ Protein Urine Dipstick - Negative\.br\ Specific [place] Urine Dipstick - 1.020\.br\ Urine Appearance Urine [...] including vitamins, herbs, eye drops, creams, and ixog-zrr-khjfxeq medicines.\.br\ ? \.br\ Whether you are or [...] nerves are communicating with your muscles.\.br\ What [facility]ville HospitalPatient Educationon 73-38-3786Eqdinuv Education Endocrinology Hypothyroidism Hypothyroidism is when the [...] Follow these instructions at home: ? Take ypux-xvk-lxdmdxq and prescription medicines only as told by [...] provider. Document Revised: 03/09/2022 Document Reviewed: 03/09/2022 [employer] Patient Education ? 2022 EdSurge. Obstetrics and Gynecology Urinary Tract Infection, Adult A urinary tract infection (UTI) is an infection of any part of the urinary tract. The urinary tractincludes the kidneys, ureters, bladder, and urethra. These organs make, store, and get rid of urinein the body. An upper UTI affects the ureters and kidneys. A lower UTI affects the bl (more content not included)...[facility] HospitalPhysician Referralon 34-54-2933Wptjjeglh [id number]#1.00TIFF [facility] HospitalProvider Letteron [id number] Letter March 02, 20[address] Y[address] [place] [phone] : [address] Clay Waters is know on your insurance & we are able to schedule your EGD & Colonoscopy. Please call us at [phone] at [facility] convenience to schedule your procedure. Thank you for your prompt attention to this matter. Sincerely, [facility] 03-02-2023 Reminders From: Erum Gold To: [facility] - Reminders/Recalls; Sent: 11/30/2022 12:34:03 EDT Show up: 11/30/2022 12:34:00 EDT Subject: Ambulatory Reminder [employer] Reminder/Recall Call pt and scheduled EGD and Colonoscopy with Dr. Williamson once [employer] is approved. From: Rusty Alfred ([facility] - Reminders/Recalls) To: Yue Perez; Sent: [...] letter to patient to call office to [facility] Urineon [id number] identified Cx Nom (U)Microbiology PROCEDURE: Urine Culture [...] Locations R1: This test was performed at: [facility], [address] [place] [address], [facility] , , VkyaioDtaamxVan Wert County HospitalComment on above:Performed By: #### [id number] ####[facility] [address] [place] [address] Medicine Office/Clinic Noteon 48-93-1156Ztafid Medicine Office/Clinic NoteChief Complaint UTI symptoms HPI [...] color was orange in appearance due to ohoe-wfa-dqdvnad meds she was taking, normal urobilinogenpH 5.5 [...] day(s), # 10 cap(s), Refills(s) 0, Pharmacy: [facility], 166, cm, 02/21/23 13:06:00 EST, Height/Length Dosing, 58.6, kg, 02/21/23 13:06:00 EST, Weight Dosing phenazopyridine, 200 mg = 1 tab(s), Oral, TID, X 3 day(s), # 9 tab(s), Refills(s) 0, Pharmacy: [facility], 166, cm, 02/21/23 13:06:00 EST, Height/Length Dosing, 58.6, kg, 02/21/23 13:06:00 EST, Weight Dosing Urine Culture Urnls Dip Stick Auto w/o Microscopy POC 60097 2. Acute cystitis (N30.00: Acute cystitis without hematuria) #1 3. Constipation in female (K59.00: Constipation, unspecified) improving. occasional Colace OTC and Miralax 4. Hemorrhoids (K64.9: Unspecified hemorrhoids) improving, stable 5. Hypothyroidism (E03.9: Hypothyroidism, unspecified) Chronic Stable with 112 mcg daily of Synthroid _ control Weight is stable Asymptomatic- noteable tachycardia today Du (more content not included)...[facility] County HospitalComment on above:Result Comment: Electronically Signed By: Ya [...] these instructions at home: Medicines ? Take zsir-rih-sajhjig and prescription medicines only as told by [...] provider. Document Revised: 10/17/2020 Document Reviewed: 10/17/2020 [employer] Patient Education ? 2022 EdSurge.[facility] Ambulatory Visit Summaryon [id number] Visit Summary LILIANAYANA MONTENEGRO :2000 Visit Date:11/30/2022 [...] 1:00 PM EST With: Ya Wang Where: [facility] Primary CareVan [facility] Hospital Gastroenterology Office/Clinic Noteon [id number] Office/Clinic NoteChief Complaint constipation HPI Staff Patient [...] Refill(s) 0, Prior to colonoscopy., [id number], 166, cm, 11/30/22 12:12:00 EDT, Height/Length Dosing, [...] rhinitis Hypoglycemia Hypothyroidism Left (more content not included)...[facility] County HospitalComment on above:Result Comment: Electronically Signed By: Daniel Gray CNP\.br\Date and Time Signed: 11/30/22 12:32 EDTPatient Educationon 94-12-3523Rfsslxg EducationGastroenterology High-Fiber Eating Plan Fiber, also called [...] Bulgur wheat. Millet. Quinoa. Bran muffins. Popcorn. Valatie wafer crackers. Meats and other proteins [place] beans, kidney beans, and díaz beans. Soybeans. [...] Cream cheese. Sour cream. Fats and oils [place]. Beverages Soft drinks. Other foods Cakes and [...] care provider. Document Revised: (more content not included)...[facility] HospitalPre-Certification Formon 77-92-8883Ocq-Certification Form [id number]#1.00CD:127NormalBarnesville HospitalFagoddard memorial hospital Medicine Office/Clinic Noteon 07-23-5561Rmpvcw Medicine Office/Clinic NoteChief Complaint pt here for [...] visit we encourage proper diet and exercise dmpy-aey-ekuiapj MiraLAX or Colace with Preparation H cnmf-wot-dvrcbxp, bleeding has stopped, blood noted on toilet [...] Rectal exam was performed, I did offer enamel burner but patient declined, external anus is normal [...] length of time on toilet, sitz bath's, kjup-ymz-qbzqqcq medications and suppositories and creams Hydrocortisone lidocaine with applicator gel ordered today to use twice daily Referral for GI referral placed today Ordered: hydrocortisone-lidocaine topical, 1 carmen, Rectal, BID, 60 EA, Refill(s) 1, [facility], 166, cm, 11/11/22 9:28:00 EDT, Height/Length Dosing, 59.4, kg, 11/11/22 9:28:00 EDT, Weight Dosing [facility] Internal Ambulatory Referral 2. Hypothyroidism (E03.9: Hypothyroidism, [...] exercise. Orders: azelastine ophthalmic, (more content not included)...[facility] County HospitalComment on above:Result Comment: Electronically Signed By: Ya Wang\.br\Date and Time Signed: 11/11/22 09:53 EDTPatient Educationon 51-56-8808Wjczdis EducationHigh-Fiber Diet Fiber, also called dietary fiber, [...] serving. ? Talk with a diet and animal nutritionist (dietitian) if you have questions about [...] Bulgur wheat. Millet. Quinoa. Bran muffins. Popcorn. Valatie wafer crackers. Meats and other proteins [place], kidney, and díaz beans. Soybeans. Split peas. [...] Cream cheese. Sour cream. Fats and oils [place]. Beverages Soft drinks. Other foods Cakes and [...] 03/07/2006 Document Revised: 01/09/2018 Document Reviewed: 01/09/2018 [employer] Patient Education ? 2019 EdSurge. Gastroenterology H (more content not included)...[facility] HospitalAmbulatory Visit Summaryon 21-52-9778Etejvtqyje Visit Summary YANA CHURCH :2000 Visit Date:10/08/2022 [...] f/u for hypothyroid, weight loss Where: [address] [facility] [address] [address]- Business (1) You Need to Complete the Following Anti-thyroid Abys, Blood, Routine collect, 10/08/22, Order for future visit, Lab Collect, Weight lossInvalid Interpretation CodeHypothyroidismBarnesville HospitalAuto Diffon 90-26-5754Pdlipfizh/100 WBC (Bld)1.1 %Normal0.0-2.0 [facility]ville HospitalComment on above:Order Comment: Order Added by Discern Expert.Performed By: #### [id number], 79987464, 78192985, 4312018, 8551055 ####[facility] [address] [place] [address] Basophils/Leukocytes Auto (Bld) [Pure # fraction]0.1 E9/LNormal0.0-0.2FMercy Health Tiffin HospitalComment on above:Order Comment: Order Added by Discern Expert.Performed By: #### 2408569, 80659822, 34863159, 5114500, 7414923 ####[facility] [address] [place] [address] Eosinophils/100 WBC (Bld)1.2 %Normal0.0-8.0Barnesville HospitalComment on above:Order Comment: Order Added by Discern Expert.Performed By: #### 5815157, 92581521, 79167144, 5294594, 3402970 ####[facility] [address] [place] [address]Eutnsjpiomg/Leukocytes Auto (Bld) [Pure # fraction]0.1 E9/LNormal0.0-0.5FMercy Health Tiffin HospitalComment on above: Order Comment: Order Added by Discern Expert.Performed By: #### 7366074, 60004214, 25114472, 4889569, 4839179 ####[facility] [address] [place] [address]Wkzjnebdjza/100 WBC (Bld)41.0 %Normal 14.0-50.0Barnesville HospitalComment on above:Order Comment: Order Added by Discern Expert.Performed By: #### 7213522, 88462376, 56738582, 5731856, 0858871 ####[address] [address]Emybazxfdgf/Leukocytes Auto (Bld) [Pure # fraction]2.3 E9/LNormal1.0-4.0 [facility] HospitalComment on above:Order Comment: Order Added by Discern Expert.Performed By: #### 7067635, 18755591, 32739140, 6072015, 8406667 ####[address] [address] Monocytes/100 WBC (Bld)5.8 %Normal4.0-14.0Barnesville HospitalComment on above:Order Comment: Order Added by Discern Expert.Performed By: #### 5742758, 28214884, 29513815, 5958887, 5586324 ####[facility] [address] [place] [address]Lcvcrelig/Leukocytes Auto (Bld) [Pure # fraction]0.3 E9/LNormal0.2-1.0Barn[facility]ville HospitalComment on above:Order Comment: Order Added by Discern Expert.Performed By: #### 7029173, 63717790, 18705741, 6454700, 0291044 ####[address] [address]Rzwuuplhgie/100 WBC (Bld)50.9 %Pdrtrk84.0-75.0 [facility]ville HospitalComment on above:Order Comment: Order Added by Discern Expert.Performed By: #### 5662005, 45380992, 68855620, 7948374, 1164085 ####[address] [address] Neutrophils/Leukocytes Auto (Bld) [Pure # fraction]2.8 E9/LNormal2.0-7.5FMercy Health Tiffin HospitalComment on above:Order Comment: Order Added by Discern Expert.Performed By: #### 8330944, 86268604, 39516359, 8231816, 2239725 ####[address] [address]AYX w/ Auto Diffon 00-69-3895Ltldhvkvlqb distribution width (RBC) [Ratio]12.6 % Qozkui15.9-14.2FMercy Health Tiffin HospitalComment on above:Performed By: #### 3144539, 85654379, 76594786, 3007732, 9457856 ####[address] [address]Eroqgyyaya (Bld) [Volume fraction] 40.4 %Qevear83.0-46.0Barn[facility]ville HospitalComment on above:Performed By: #### 0608096, 94640891, 91553799, 4857386, 8168489 ####[address] [address]Xuggtnhbfd (Bld) [Mass/Vol] 14.1 g/zSWytcdt61.0-16.0Barn[facility]ville HospitalComment on above:Performed By: #### 9520177, 28070932, 85104015, 4657002, 8414647 ####[address] [address]FVC (RBC) [Entitic mass]32.1 krZnyobx80.0-34.0Barn[facility]ville HospitalComment on above:Performed By: #### 0231630, 54694211, 75844567, 2655316, 4971406 ####[address] [address]PVHQ (RBC) [Mass/Vol]34.8 g/dLNormal 31.4-36.0Barn[facility]ville HospitalComment on above:Performed By: #### 2402899, 17274801, 36043770, 5341938, 6437564 ####[facility] [address] [place] [address]PTK (RBC) [Entitic vol]92.1 fLNormal 80.0-100.0Barn[facility]ville HospitalComment on above:Performed By: #### 7843812, 76100652, 41771760, 6425544, 8720617 ####[address] [address]Esevryqk mean volume (Bld) [Entitic vol]9.1 fLNormal6.4-10.8Barn[facility]ville HospitalComment on above:Performed By: #### 0498905, 53226480, 48223685, 2180800, 4282131 ####[address] [address]Qzarxkxan (Bld) [#/Vol]238.0 E9/MYwglze893.0-500.0Barn[facility]ville HospitalComment on above:Performed By: #### 2117292, 56608583, 00522909, 6238446, 7194684 ####[address] [address]ICJ (Bld) [#/Vol]4.4 E12/L Normal4.3-5.9Barn[facility]ville HospitalComment on above:Performed By: #### 4750911, 38530467, 81920561, 7231229, 4261398 ####[address] [address]QSB corrected for nucl RBC Auto (Bld) [#/Vol]5.6 E9/LNormal4.0-11.0Barn[facility]ville HospitalComment on above: Performed By: #### 8843149, 56315194, 49966097, 1761130, 3959575 ####[facility] [address] [place], [place] [address]QZCtx 10-08-2022 Albumin [Mass/Vol]4.7 g/dLNormal3.3-5.0Barn[facility]ville HospitalComment on above:Performed By: #### 1512326, 96346515, 65639132, 5688634, 8616449 ####[facility] [address] [place] [address] Albumin/Globulin (S) [Mass conc ratio]1.1Dnlvzj9.1-2.2FMercy Health Tiffin HospitalComment on above:Performed By: #### 8179497, 66660430, 53000285, 2055362, 0434902 ####[facility] [address] [place] [address]XHG [Catalytic activity/Vol]42 Int._Unit/MAiirsr78-05GlkxpgBarnesville HospitalComment on above:Performed By: #### 9990804, 36038237, 82854862, 0132945, 5000300 ####[facility] [address] [place], [place] [address]GZH No additional P-5'-P [Catalytic activity/Vol]15 Int._Unit/LNormal6-46 [facility] HospitalComment on above:Performed By: #### 6208040, 19076496, 44453541, 0830964, 8946797 ####[facility] [address] [place], [place] [address]Pjqyo gap [Moles/Vol]13 mmol/LNormal6-16 [facility] HospitalComment on above:Performed By: #### 1732040, 11715019, 77316466, 2386540, 1665942 ####[facility] [address] [place], [place] [address]XPG [Catalytic activity/Vol]22 Int._Unit/LNormal5-43Fisher Motley Medical CenterComment on above:Performed By: #### 2971498, 76857246, 66391758, 0854788, 3102056 ####[facility] [address] [place], [place] [address]Liuutwsbv [Mass/Vol]0.5 mg/dL Normal0.0-1.1FMercy Health Tiffin HospitalComment on above:Performed By: #### 1670708, 58994684, 58537033, 9313847, 2082312 ####[facility] [address] [place], [place] [address]Xjdjbnz [Mass/Vol]9.4 mg/dLNormal 8.9-11.1FMercy Health Tiffin HospitalComment on above:Performed By: #### 7963769, 47745061, 79105519, 0896563, 9719467 ####[facility] [address] [place], [place] [address]Hakgvkbc [Moles/Vol]107 mmol/LNormal 101-111Barn[facility]ville HospitalComment on above:Performed By: #### 2375667, 57539625, 29992479, 8583111, 8485914 ####[facility] [address] [place], [place] [address]JM9 [Moles/Vol]24 mmol/XAxlcnb99-21 [facility] HospitalComment on above:Performed By: #### 0451342, 81764747, 83682368, 9733839, 1848020 ####[facility] [address] [place], [place] [address]Zysvywwwbn [Mass/Vol]0.7 mg/dLNormal 0.5-1.3FMercy Health Tiffin HospitalComment on above:Performed By: #### 8130806, 39144017, 78846944, 6758013, 6867689 ####[facility] [address] [place], [place] [address]Hdsclbnc (S) [Mass/Vol]3.2 g/dLNormal 1.4-4.0Barn[facility] HospitalComment on above:Performed By: #### 5332947, 97863250, 21531603, 1809108, 2741116 ####[facility] [address] [place], [place] [address]Pdpvwdh [Mass/Vol]105 mg/sRRdtdyl87-062 [facility] HospitalComment on above:Result Comment: If this glucose result represents a fasting glucose, interpretation should refer tothe following reference range: 55-99 mg/dLPerformed By: #### 9004221, 98263014, 34795563, 1617252, 4444535 ####[facility] [address] [place], [place] [address]Omatfnhvh [Moles/Vol]3.9 mmol/LNormal3.5-5.3FMercy Health Tiffin HospitalComment on above:Performed By: #### 1111448, 85380826, 32407565, 5125380, 4960410 ####[facility] [address] [place], [place] [address]Gywmvhw [Mass/Vol]7.9 g/dLHigh6.0-7.8Barn[facility] HospitalComment on above:Performed By: #### 8657805, 19070679, 46792891, 9349771, 0466833 ####[facility] [address] [place], [place] [address]Luzntg [Moles/Vol]140 mmol/LWbfcex904-377DheehaBarnesville HospitalComment on above:Performed By: #### 3280668, 94708165, 03962465, 5639973, 5579577 ####[facility] [address] [place], [place] [address]Qrzu nitrogen [Mass/Vol]17 mg/dLNormal5-21Barn[facility]ville HospitalComment on above:Performed By: #### 1158361, 27098527, 13822526, 2924288, 1896203 ####[facility] [address] [place], [place] [address]Mcaf nitrogen/Creatinine [Mass ratio]24 No AvyeuKsqy76-76MibcovBarnesville Hospital Comment on above:Performed By: #### 2738588, 08507638, 52009498, 1532497, 9019425 ####[facility] [address] [address]Tzziktg for Treatmenton 45-94-3532Snyxbqz for Treatment [id number]:127NormalTrinity Health System Medicine Office/Clinic Noteon 95-23-8738Ztnuon Medicine Office/Clinic NoteChief Complaint Establish care --- [...] Dr Marshall scheduled for nov 2022 Specialists: Ur Coordinator: Bird Álvarez in [place]- contacts most of the time, Dentist: UTD - no issues- Dr Nila MARSHALL- [facility] GINA KASPER Review of Systems PHQ [...] 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 Discussed self breast exams and other health [...] and exercise increasing. Patient encouraged to use acit-mda-ipnmgzq MiraLAX or Colace, encouraged Preparation H fhgv-nhg-ooiznkj topical treatments if needed. \ Follow-up only if needed. Patient only having minimal complaints 3. Constipation in female (K59.00: Constipation, unspecified) see #3 4. BMI 20.0-20.9, ad (more content not included)...[facility] County HospitalComment on above:Result Comment: Electronically Signed By: Ya Wang\.br\Date and Time Signed: 10/08/22 16:30 EDTPatient Educationon 63-77-3502Iaoykrs EducationEndocrinology Hypoglycemia Hypoglycemia occurs when the level [...] instructions at home: General instructions ? Take hqty-qmq-kfajmpy and prescription medicines only as told by your health care provider. ? Monitor your blood glucose as told by your health care provider. ? If you drink alcohol: ? Limit how much you have to: ? 0?1 (more content not included)...NormalSumma Health [facility] With T4fr Reflexon 43-44-6054SXP Qn0.58 m[IU]/LNormal0.34-5.60Barn[facility] HospitalComment on above:Performed By: #### 6054171, 85194041, 29918287, 5956768, 1498029 ####[facility] [address] [place], [place] [address]oCTDuj 70-84-1825XIU/1.73 sq M.predicted among non-blacks MDRD (S/P/Bld) [Vol rate/Area]124 mL/min/1.73 j7Mjdaye>=59Fisher Grace Medical CenterComment on above:Order Comment: Order added by Discern Expert.Result Comment: Chronic kidney disease could be indicated at eGFR's of less than 60 mL/min/1.73m2. K idney failure is indicated at less than 15 mL/min/1.73m2.Performed By: #### 2675010, 58376440, 58248700, 6050455, 1489286 ####[facility] [address] [place], [place] [address]YBA ACOG PANEL 2: 19 to 29on 10-23-2021..NormalKnox Community HospitalComment on above:Performed By: #### CBC #### [facility] [address] [place] [address] Dr. Rima Dinh Gdln ACOG Tklqfuw61-38QsxrqzWptMercy Health Perrysburg HospitalComascension borgess lee hospital on above:Performed By: #### CBC #### [facility] [address] [place] [address] Dr. Rima CharlesDIAGNOSIS:CommentGreene Memorial Hospital on above: Result Comment: NEGATIVE FOR INTRAEPITHELIAL LESION OR MALIGNANCY. THIS SPECIMEN WAS RESCREENED PART OF OUR PERISHABLE FREIGHT INSPECTOR PROGRAM.Performed By: #### CBC #### [facility] [address] [place] [address] Dr. Rima CharlesMethodology:CommentGreene Memorial Hospital on above: Result Comment: This liquid based ThinPrep(R) pap test was screened with the use of an image guided system.Performed By: #### CBC #### [facility] [address] [place] [address] Dr. Rima CharlesNote:CommentGreene Memorial Hospital on above:Result Comment: The Pap smear is a screening test designed to aid in the detection of premalignant and malignant conditions of the uterine cervix. It is not a diagnostic procedure and should not be used as the sole means of detecting cervical cancer. Both false-positive and false-negative reports do occur. .Performed By: #### CBC #### [facility] [address] [place] [address] Dr. Rima CharlesPerformed by:CommentGreene Memorial Hospital on above: Result Comment: Piter Cagle, Animal Hospital Office Supervisor (ASCP)Performed By: #### CBC #### [facility] [address] [place] [address] Dr. Rima Bryson reviewed by:[facility] on above:Result Comment: Hannah Morejon, Supervisory [facility] Office Supervisor (ASCP) Performed By: #### CBC #### [facility] [address] [place] [address] Dr. Rima CharlesReflex Criteria:CommentGreene Memorial Hospital on above:Result Comment: The HPV DNA reflex criteria were not met with this specimen result therefore, no HPV testing was performed. .Performed By: #### CBC #### [place] [address] Dr[address] Rima CharlesSpecimen adequacy:CommentGreene Memorial Hospital on above:Result Comment: Satisfactory for evaluation. Endocervical and/or squamous metaplastic cells (endocervical component) are present. Areas of partially obscuring blood are present.Performed By: #### CBC #### [facility] [address] [place] [address] Dr. Rima Cornell T4on 74-85-3579Mwxd T4 [Mass/Vol]1.01 ng/dLNormal0.76-1.46 [facility] on above:Performed By: #### FT4 #### [facility] [address] [place] [address] Dr. Rima BrowerHoagustín 00-35-8662AMB9.997 uIU/mLCritically high0.358-3.740The [facility] on above:Performed By: #### TSH #### [facility] [address] [place] [address] Dr. Rima CharlesVAGINITIS/VAGINOSIS DNA PROBEon 13-30-0253Afqhmut speciesNegative NormalNegativeThe [facility] on above:Performed By: #### CBC #### [facility] [address] [place] [address] Dr. Rima Moonerejoba vaginalisNegativeNormalNegativeKnox Community Hospital Comment on above:Performed By: #### CBC #### [facility] [address] [place] [address] Dr. Rima Calvo vaginalisNegativeNormalNegativeKnox Community Hospital Comment on above:Performed By: #### CBC #### [facility] [address] [place] [address] Dr. Rima CharlesCHLAMYDIA/GONOCOCCUS FRANSISCO (SWAB/URINE/PAPon [id number] trachomatis, NAANegativeNormalNegativeKnox Community HospitalComment on above: Performed By: #### CBC #### [facility] [address] [place] [address] Dr. Rima CharlesNeisseria gonorrhoeae, NAANegativeNormalNegativeKnox Community HospitalComment on above:Performed By: #### CBC #### [facility] [address] [place] [address] Dr. Rima CharlesVAGINITIS/VAGINOSIS DNA PROBEon 88-70-3087Tmhbhul speciesNegative NormalNegativeKnox Community HospitalComment on above:Performed By: #### VAGINT #### [facility] [address] [place] [address] Dr. Rima Moonerebenedict vaginalisNegativeNormalNegativeKnox Community Hospital Comment on above:Performed By: #### VAGINT #### [facility] [address] [place] [address] Dr. Rima Calvo vaginalisNegativeNormalNegativeKnox Community Hospital Comment on above:Performed By: #### VAGINT #### [facility] [address] [place] [address] Dr. Rima Livingston 26-24-4392XBH5.494 uIU/mLNormal0.470-4.680Knox Community HospitalComment on above:Performed By: #### CBC #### [facility] [address] [place] [address] Dr. Rima Dougherty RANGESEE [facility] Bucyrus HospitalComment on above: Result Comment: <0.34 UIU/ml HYPERTHYROID 0.34-5.60 UIU/ml EUTHYROID >5.60 UIU/ml HYPOTHYROIDPerformed By: #### CBC #### [facility] [address] [address] [address] Rima Barnes MATERNAL FOR SPINA BIFIDAon 53-04-6543NCI MoM0.98[facility] Cleveland WestComment on above:Performed By: #### AFPMAT #### [facility] [address] [address] [address] Rima Barnes Value36.3 ng/mLNormalKnox Community HospitalComment on above: Performed By: #### AFPMAT #### [facility] [address] [address] [address] Rima Barnes, Serum for Spina BifidaReWadsworth-Rittman Hospital Comment on above:Performed By: #### AFPMAT #### [facility] [address] [address] [address] Rima CurrieCleveland Clinic Children's Hospital for RehabilitationComment on above:Result Comment: Alie Moon, Ph.D., [facility] Director . References: Available Upon Request. . Multiples Of Median Cutoffs For AFP Elevations Murphy 2.5 Black 2.8 IDD 2.0 Twins 4.5 Abbreviation Definitions IDD - Insulin Dep Diabetes OSBR - Open Spina Bifida Risk . For further inquiries contact [facility] at [phone].Performed By: #### AFPMAT #### [facility] [address] [address] [address] Rima Pedro Age Collection Date16.0 weeksReg[facility] Comment on above:Performed By: #### AFPMAT #### [facility] [address] [address] [address] Rima Pedroat, Age Based onLMPNormalKnox Community HospitalComment on above:Result Comment: Recalculations are not recommended when gestational dating by LMP and ultrasound are within 10 days.Performed By: #### AFPMAT #### [facility] [address] [place] [address] Dr. Rima CharlesGrant HospitalComascension borgess lee hospital on above:Performed By: #### AFPMAT #### [facility] [address] [place] [address] Dr. Rima CharlesInterpretationCleveland Clinic Children's Hospital for RehabilitationComascension borgess lee hospital on above: Result Comment: Interpretation: Screen [...] Customer Services to discuss available options. The [employer] recommends amniocentesis be offered to women age 35 and older.Performed By: #### AFPMAT #### [facility] [address] [place] [address] Dr. Rima CharlesMaternahaley Age at EDD23.4 yrRegency Hospital Cleveland WestComascension borgess lee hospital on above:Performed By: #### AFPMAT #### [facility] [address] [place] [address] Dr. Rima Erazo [facility] CenterComasc[facility] on above: Performed By: #### AFPMAT #### [facility] [address] [place] [address] Dr. Rima CharlesOSBR Risk 1 [id number] Hospital Cleveland WestComascension borgess lee hospital on above: Performed By: #### AFPMAT #### [facility] [address] [place] [address] Dr. Rima Meadows.[facility] on above:Performed By: #### AFPMAT #### [facility] [address] [place] [address] Dr. Rima MccoyOhio State Harding HospitalComment on above: Performed By: #### AFPMAT #### [facility] [address] [place] [address] Dr. Rima Urena Results:NegativeNormalThe [facility] CenterComment on above: Performed By: #### AFPMAT #### [facility] [address] [place] [address] Dr. Rima Del Rosario B SURFACE ANTIGEN SCREENon 20-62-3996WIqAr ScreenNegative NormalNegativeThe [facility] CenterComment on above:Performed By: #### HBSANS #### [facility] [address] [place] [address] Dr. Rima RiosTIS C ANTIBODYon 90-09-0042Kmm C Virus Ab<0.8Qzphyl3.0-0.9 [facility] on above:Result Comment: Negative: < 0.8 Indeterminate: 0.8 - 0.9 Positive: > 0.9 . The CDC recommends that a positive HCV antibody result be followed up with a HCV Nucleic Acid Amplification test (298472).Performed By: #### HCV #### [facility] [address] [place] [address] Dr. Rima Chery 1 AND 2 WITH REFLEXon 69-06-1260OWQ Screen 4th Generation wRfxNon-ReactiveNormalNon ReactiveThe [facility] CenterComascension borgess lee hospital on above: Performed By: #### HIV12 #### [facility] [address] [place] [address] Dr. Rima CharlesRPR QUANTon 19-17-4944Sjhnj Plasma Reagin, QuantNon-Reactive NormalNonRea<1:1[facility] on above:Performed By: #### CBC #### [facility] [address] [place] [address] Dr. Rima MirelesBELLA AB IGGon 73-65-5083Mwhuuuh Antibodies, IgG2.33 index NormalImmune >0.99The [facility] on above:Result Comment: Non- immune <0.90 Equivocal 0.90 - 0.99 Immune >0.99Performed By: #### RUBIGG #### [facility] [address] [address] [address] Rima Sierra AUTO DIFFon 79-89-5248JACC #0.0 103/ulNormal0.0-0.1The [facility] Cross Hospitalment on above:Performed By: #### CBC #### [facility] [address] [address] [address] Rima CharlesBasophils/100 WBC (Bld)0.4 %Normal0.2-2.0The [facility] Comment on above:Performed By: #### CBC #### [facility] [address] [place] [address] Dr. Rima Fuller #0.0 103/ulNormal0.0-0.7The [facility] CenterComment on above: Performed By: #### CBC #### [facility] [address] [place] [address] Dr. Rima Leahyosinophils/100 WBC (Bld)0.6 %Critically low0.9-7.0The [facility] CenterComment on above:Performed By: #### CBC #### [facility] [address] [place] [address] Dr. Rima Leahyrythrocyte distribution width (RBC) [Ratio]12.0 %Xyuliv67.0-15.0 The [facility] CenterComment on above:Performed By: #### CBC #### [facility] [address] [place] [address] Dr. Rima CharlesHematocrit (Bld) [Volume fraction]37.5 %Ngbzae20.0-48.0The [facility] CenterComment on above:Performed By: #### CBC #### [facility] [address] [place] [address] Dr. Rima CharlesHemoglobin (Bld) [Mass/Vol]13.2 g/fOOdzelf90.0-16.0The [facility] Hospitalment on above:Performed By: #### CBC #### [facility] [address] [place] [address] Dr. Rima Carreno #0.02 10e3/ulNormal0.00-0.03The [facility] Hospitalment on above:Performed By: #### CBC #### [facility] [address] [address] [address] Rima Carreno %0.3 %Normal0.0-0.5The [facility] CenterComascension borgess lee hospital on above: Performed By: #### CBC #### [facility] [address] [address] [address] Rima Singleton #1.4 103/ulNormal1.2-3.8The [facility] CenterComascension borgess lee hospital on above:Performed By: #### CBC #### [facility] [address] [place] [address] Dr. Rima Jayhocytes/100 WBC (Bld)20.2 %Critically low20.5-60.0The [facility] CenterComascension borgess lee hospital on above:Performed By: #### CBC #### [facility] [address] [place] [address] Dr. Rima Lr DIFF REQNONormalThe [facility] CenterComment on above: Performed By: #### CBC #### [facility] [address] [place] [address] Dr. Rima Nicholas (RBC) [Entitic mass]33.2 lyMtongt29.7-34.0[facility] on above:Performed By: #### CBC #### [facility] [address] [place] [address] Dr. Rima Fall (RBC) [Mass/Vol]35.2 g/wQJxoafq04.9-35.2The [facility] Hospitalment on above:Performed By: #### CBC #### [facility] [address] [place] [address] Dr. Rima Fall (RBC) [Entitic vol]94.5 yXIlqkfk42.0-99.0[facility] on above:Performed By: #### CBC #### [facility] [address] [place] [address] Dr. Rima Grossman #0.4 103/ulNormal0.3-0.8The [facility] CenterComment on above:Performed By: #### CBC #### [facility] [address] [place] [address] Dr. Rima Wenocytes/100 WBC (Bld)6.1 %Normal1.7-12.0The [facility] Comment on above:Performed By: #### CBC #### [facility] [address] [place] [address] Dr. Rima Huston #5.1 103/ulNormal1.4-6.5The [facility] CenterComment on above:Performed By: #### CBC #### [facility] [address] [place] [address] Dr. Rima Bobutrophils/100 WBC (Bld)72.4 %Wlvhee59.0-75.0The [facility] CenterComment on above:Performed By: #### CBC #### [facility] [address] [place] [address] Dr. Rima Bradfodrlet mean volume (Bld) [Entitic vol]11.2 fLNormal9.5-13.5The [facility] CenterComment on above:Performed By: #### CBC #### [facility] [address] [place] [address] Dr. Rima CharlesPLT221 103/rlTzdlwq732-228Bza [facility] CenterComment on above: Performed By: #### CBC #### [facility] [address] [place] [address] Dr. Rima CharlesRBC3.97 106/ulCritically low4.20-5.40The [facility] CenterComment on above:Performed By: #### CBC #### [facility] [address] [place] [address] Dr. Rima CharlesWBC7.1 103/ulNormal4.0-11.0The [facility] CenterComment on above: Performed By: #### CBC #### [facility] [address] [place] [address] Dr. Rima Cardenas URINEon 42-47-2542UARYBMC URINECulture Observations: No growthNoMercy Health Perrysburg HospitalComment on above:Performed By: #### CBC #### [facility] [address] [place] [address] Dr. Rima CharlesGLYCOHEMOGLOBIN A1Con 99-12-3313JTS RECOMMENDATIONADA THERAPEUTIC TARGET 6.0 - 7.0 ACTION SUGGESTED > 7.0NoMercy Health Perrysburg HospitalComment on above:Performed By: #### A1C #### [facility] [address] [place] [address] Dr. Rima CharlesGlucose [Mass/Vol]111 mg/dLRegency Hospital Cleveland WestComment on above:Performed By: #### A1C #### [facility] [address] [place] [address] Dr. Rima CharlesHbA1c (Bld) [Mass fraction]5.5 %Normal<=6.0[facility] Comment on above:Performed By: #### A1C #### [facility] [address] [place] [address] Dr. Rima Escalante BOX TEST PT SEND OUTon 06-63-2505VRZG TO REF LAB12/09/20 NormalKnox Community HospitalComascension borgess lee hospital on above:Performed By: #### CBC #### [facility] [address] [place] [address] Dr. Rima BrowerHoagustín 09-46-2830LOG7.651 uIU/mLNormal0.470-4.680The [facility] CenterComascension borgess lee hospital on above:Performed By: #### CBC #### [facility] [address] [place] [address] Dr. Rima Dougherty RANGESEE BELOWRegency Hospital Cleveland WestComment on above: Result Comment: <0.34 UIU/ml HYPERTHYROID 0.34-5.60 UIU/ml EUTHYROID >5.60 UIU/ml HYPOTHYROIDPerformed By: #### CBC #### [facility] [address] [place] [address] Dr. Rima CharlesTYPE AND SCREENon 21-21-1525MIGS AND SCREENNegativeNoMercy Health Perrysburg HospitalComment on above:Performed By: #### CBC #### [facility] [address] [address] [address] Rima Butler PREG TVon [id number] PREG TVEXAMINATION: US PREG TV HISTORY: Urine [...] Electronically authenticated by: LILIANE POPE Date: 2020-12-02 09:34[facility] Vital Signs Date TimeVital SignValuePerforming EwhrtqxhbXjlznlwl55-03-4298 08:39-0500Body mass index (BMI) [Ratio]26.29 kg/s5Pqrqq SHADO DO Work Phone: [phone] [place], [place] [address]Zshqihmxfm96-32-5456 08:39-0500Body .67 kgCorey [employer] Work Phone: [phone] [place], [place] [address]Prssuniemg09-88-0164 08:39-0500Diastolic blood eayroofn92 mm[Hg][employer] Work Phone: [phone] [place], [place] [address]Aphclfabys63-84-2619 08:39-0500Systolic blood ipjdpswj745 mm[Hg][employer] Work Phone: [phone] [place], [place] [address]Oyrwqdippa77-00-4345 08:35-0400Body mass index (BMI) [Ratio]26.71 kg/j5Alkef Joanna [employer] Work Phone: [phone] DivisionZnmkyobdvk04-11-3992 08:35-0400Body qeasng14.8 kg [employer] Work Phone: [phone] DivisionMlqgrecvax15-53-6883 08:35-0400Diastolic blood dbeozvul15 mm[Hg]Santosh Joanna DO Work Phone: [phone] [place], [place] [address]Zmsfgduszm03-52-8669 08:35-0400Systolic blood ocinuoqg406 mm[Hg]Santosh Joanna DO Work Phone: [phone] [place], [place] [address]Efexbdvnrx76-08-5053 11:20-0400Body mass index (BMI) [Ratio]25.38 kg/f3Kudmj Joanna DO Work Phone: [phone] [place], [place] [address]Bjmnujzzjx47-73-6133 11:20-0400Body .17 kgCorey Joanna DO Work Phone: [phone])[address] [place] [address]-13-2025 11:20-0400Diastolic blood mm[Hg]Santosh Joanna DO Work Phone: [phone])[facility] [place], [place] [address]Afihuewpmy69-26-6177 11:20-0400Systolic blood yyvmvjoz980 mm[Hg]Santosh Joanna DO Work Phone: [phone])[address] [place], [place] 5314609-22-2025 10:23-0400Body mass index (BMI) [Ratio]24.79 kg/m2Amy Brea PA Work Phone: [phone] [place], [place] [address]Erwyzosvuw63-65-4580 10:23-0400Body hkghih27.59 kgAmy Brea PA Work Phone: [phone] [place], [place] [address]Vzfzbwrofs10-44-8724 10:23-0400Diastolic blood gbonimck56 mm[Hg]Erum Guidry PA Work Phone: [phone] [place], [place] [address]Wwbdbqwhfm03-35-3249 10:23-0400Systolic blood ohxkxrrv810 mm[Hg]Erum Guidry PA Work Phone: [phone] [place], [place] [address]Ukxfpygbct33-91-1259 11:45-0400Body mass index (BMI) [Ratio]23.15 kg/q6Xswle Joanna DO Work Phone: [phone])[facility] [place], [place] [address]Xktqrmzdjd88-28-8878 11:45-0400Body awunvh36.1 kg Santosh Joanna DO Work Phone: [phone] [place], [place] [address]Piqiaoawik31-54-3949 11:45-0400Diastolic blood mm[Hg]Santosh Joanna DO Work Phone: [facility] DivisionNtybdkejpg94-21-8806 11:45-0400Systolic blood npzkzmay601 mm[Hg]Santosh Bhaktao DO Work Phone: [phone]08-18-2025 11:51-0400Body esyahg566.1 cmJacklyn Campos MD Work Phone: [phone])[address] [place], [place] 2406508-18-2025 11:51-0400Body mass index (BMI) [Ratio]23.03 kg/b6VrypnxdpJacklyn Campos MD Work Phone: 1(178)[address] [place], [place] 2406508-18-2025 11:51-0400Body neineo27.78 kgJacklyn Campos MD Work Phone: [phone])[address] [place], [place] 2406508-18-2025 11:51-0400Diastolic blood ubrkgmfo96 mm[Hg]Jacklyn Campos MD Work Phone: [phone])[address] [place], [place] 2406508-18-2025 11:51-0400Heart rate 94 /minJacklyn Campos MD Work Phone: [phone] [place], [place] 2406508-18-2025 11:51-0400Systolic blood rcqmeefp58 mm[Hg]Jacklyn Campos MD Work Phone: [phone] [place], [place] 2406507-28-2025 10:13-0400Body mass index (BMI) [Ratio]22.38 kg/m2Erum HAYS Work Phone: [phone] [place], [place] [address]Epkxarbcse88-24-6320 10:13-0400Body pinttq88.01 kgErum HAYS Work Phone: [phone] [place], [place] [address]Sfzkrkhviz59-47-1059 10:13-0400Diastolic blood azqwgxcw45 mm[Hg]Erum HAYS Work Phone: [phone] [place], [place] [address]Cfsmtpsrcb37-86-9113 10:13-0400Systolic blood yasjvwfq966 mm[Hg]Erum HAYS Work Phone: [facility] DivisionGostzhgrmq73-56-8559 11:10-0400Body mass index (BMI) [Ratio]22.1 kg/v3Juvek Joanna DO Work Phone: [phone] [place], [place] [address]Uarxhjfvuv24-65-7052 11:10-0400Body uvnjnj74.24 kgCorey Joanna DO Work Phone: [phone])[facility] [place], [place] [address]Csjfglnxlw60-90-9992 11:10-0400Diastolic blood mm[Hg]Santosh Joanna DO Work Phone: 1(527)[facility] [place], [place] [address]Xblzroiles90-37-6283 11:10-0400Systolic blood xqubdkzq678 mm[Hg]Santosh Joanna DO Work Phone: 1(127)[address] [place], [place] 5314605-30-2025 10:00-0400Body mass index (BMI) [Ratio]22.86 kg/m2[facility]05-30-2025 10:00-0400Body rkvroq68.32 kgCenterpoint Medical Center05-30-2025 10:00-0400Diastolic blood pasgpvvg13 mm[Hg][facility]05-30-2025 10:00-0400Systolic blood xacdnocp386 mm[Hg][facility]09-23-2024 14:19-0400Body mass index (BMI) [Ratio]21.15 kg/u9Xpgeg Joanna DO Work Phone: [phone] [place], [place] [address]Qxsnddiqro39-51-5560 14:19-0400Body naxyvl59.66 kgCorey Joanna DO Work Phone: [phone]-[facility] DivisionLazuqxqhot65-97-3497 14:19-0400Diastolic blood pldrludt33 mm[Hg]Santosh Joanna DO Work Phone: [facility] DivisionXrtudimshe33-34-7860 14:19-0400Systolic blood lrzwodyw623 mm[Hg]Santosh Joanna DO Work Phone: [phone] [place], [place] [address]Mmhissnhlj36-78-7257 15:43-0400Blood Pressure Eladia Thornton 112-6545Vifzph-PeuvdOhiohealth Shelby Hospital Quza92-41-9896 15:43-0400Diastolic blood zvlvzxap27 mm[Hg]Ya Thornton 180-5249Ikyyhj-Dektd[address] [place], [place] 2867805-20-2024 15:43-0400Heart mjcf602 /Waqar Thornton 818-8645Piodyo-Arktu[address] [place], [place] 2867805-20-2024 15:43-0400Respiratory rate18 /Waqar Thornton 242-8687Txlgma-Tqazx[address] [place], [place] 2867805-20-2024 15:43-2221AdA4% (BldA) [Mass fraction]100 %Ya Thornton [address] [place], [place] 8264905-20-2024 15:43-0400Systolic blood qshaxyzi328 mm[Hg]Ya Thornton [address] [place], [place] 8264912-20-2023 07:21-0500Blood Pressure LocationYa Thornton [address] [place], [place] 8264912-20-2023 07:21-0500Body cgjllojsgec88.52 [degF]Ya Thornton [address] [place], [place] 8264912-20-2023 07:21-0500Diastolic blood moqpacfk89 mm[Hg]Ya Thornton [address] [place], [place] 8264912-20-2023 07:21-0500Heart rate91 /Waqar Thornton [address] [place], [place] 8264912-20-2023 07:21-0500Respiratory rate18 /Waqar Thornton [address] [place], [place] 8264912-20-2023 07:21-1941TtA7% (BldA) [Mass fraction]100 %Ya Thornton [address] [place], [place] 8264912-20-2023 07:21-0500Systolic blood knvxgpyf841 mm[Hg]Ya Thornton [phone]-DmeclCleveland Clinic [facility]12-04-2023 12:53-0500Blood Pressure LocationYa Thornton [phone]-Norvl[address] [place], [place] 2867812-04-2023 12:53-0500Diastolic blood tsdpybor80 mm[Hg]Ya Thornton 465-7555Fvraei-Inoqm[address] [place], [place] 2867812-04-2023 12:53-0500Heart hetm317 /Waqar Thornton 599-5173Qsmdeh-Izkal[address] [place], [place] 2867812-04-2023 12:53-0500Respiratory rate18 /Waqar Thornton 483-9552Mhtqyt-Olscx[address] [place], [place] 2867812-04-2023 12:53-4236SuM8% (BldA) [Mass fraction]99 %Ya Thornton 539-6590Gbgqui-Djnao[address] [place], [place] 2867812-04-2023 12:53-0500Systolic blood ceqzaeuq242 mm[Hg]Ya Thornton 110-1676Dppuaw-Fgajd[address] [place], [place] 2867809-12-2023 12:10-0400Blood Pressure LocationDaniel Gray [phone]-LgqvtFairfield Medical Center09-12-2023 12:10-0400Body msonxhjmyrc95.52 [degF]Daniel Gray [phone]-VrmmkFairfield Medical Center09-12-2023 12:10-0400Diastolic blood auxaobwp58 mm[Hg]Daniel Gray [phone]-YcvcrFairfield Medical Center09-12-2023 12:10-0400Heart rate97 /Hans Gray 198-8097Vjrpzp-DqeejFairfield Medical Center09-12-2023 12:10-0400Systolic blood onybqnxf644 mm[Hg]Daniel Gray 175-5407Ksilyj-CbvroFairfield Medical Center08-24-2023 09:20-0400Blood Pressure LocationYa Thornton 117-4894Pdnqel-Wxijj[address] [place], [place] 2867808-24-2023 09:20-0400Body hupqqoceett21.06 [degF]Yasampson Thornton 275-7179Qlfqar-Trdoe[address] [place], [place] 2867808-24-2023 09:20-0400Diastolic blood vscauuiu21 mm[Hg]Ya Thornton [phone]-Xtnsp[address] [place], [place] 2867808-24-2023 09:20-0400Heart rate76 /minEgerald Thornton [phone]-Eddqa[address] [place], [place] 2867808-24-2023 09:20-7488IbR5% (BldA) [Mass fraction]98 %Yasampson Thornton 525-9433Icnvzf-Sqgix[address] [place], [place] 2867808-24-2023 09:20-0400Systolic blood yfsltaoj388 mm[Hg]Ya Thornton [phone]-Dgnwm[address] [place], [place] 2867802-13-2023 14:14-0500Blood Pressure LocationRitu Desai [phone]-Vclgt[address] [place], [place] 2867802-13-2023 14:14-0500Body oszmymsvbce45.7 [degF]Ritu Desai [phone]-Tcyvk[address] [place], [place] 2867802-13-2023 14:14-0500Diastolic blood mm[Hg]Ritu Desai 269-3221Zlrglg-Heefr[address] [place], [place] 2867802-13-2023 14:14-0500Heart rate71 /minRitu Desai [phone]-Krfkw[address] [place], [place] 2867802-13-2023 14:14-1488GqS4% (BldA) [Mass fraction]98 %Ritu Desai [phone]-PtselParkview Health Montpel[facility] Primary Vkbg43-92-0121 14:14-0500Systolic blood askkedsc953 mm[Hg]Ritu Moralesell [phone]-TgmteParkview Health Montpelier Hospital Primary Rdtq95-25-9655 02:06-0400Body hahtte49.968 kgDR [facility] Memorial HospitalComment on above:Performed By: #### AFPMAT #### [facility] [address] [address] [address] Rima Charles Encounters Encounter DateEncounter TypeCare ProviderFacilityStart: 01-28-2025 End: 23-32-3660Mcwdzu flowsheetCorey Joanna DO Work Phone: NOMS [facility] OBGYNStart: 01-28-2025 End: 18-53-8862Lpkngj flowsheetCorey Joanna DO Work Phone: NOMS [facility] OBGYNStart: 01-28-2025 End: 10-15-9187Fbdohdfv flow sheetCorey Joanna DO Work Phone: NOMS Gl[facility] OBGYNComment on above:Third trimester ([facility]); 32 weeks gestation of ([facility]); Thyroid disease; History of prior with IUGR ; Hypothyroidism, unspecified typeStart: 01-28-2025 End: 12-48-0384undpjmxlglNJGVQ FAZIONot AvailableStart: 01-14-2025 End: 10-54-0429Swzmen flowsheetCorey Joanna DO Work Phone: N[facility] OBGYNStart: 01-14-2025 End: 99-73-6644Ksjhxa flowsheetCorey Joanna DO Work Phone: N[facility]S [facility] OBGYNStart: 01-14-2025 End: 63-89-9502Dntrgnef flow sheetCorey Joanna DO Work Phone: NOMS Augustina OBGYNComment on above:Third trimester ([facility]); 30 weeks gestation of ([facility])Start: 01-14-2025 End: 75-93-1495cwgpfkogtnOZZNF FAZIONot AvailableStart: 89-36-9788chhaxiamhs Martaishmael RickettsmarcusFacility:[place] PCStart: 12-31-2024 End: 49-73-3508Lhjvzphg flow sheetCorey Joanna DO Work Phone: NOQP Augustina OBGYNComment on above:Third trimester ([facility]); 28 weeks gestation of ([facility])Start: 12-31-2024 End: 60-03-5677icrxumebqqXRZOL FAZIONot AvailableStart: 12-12-2024 End: 26-98-9804Eblfehlaz Result EncounterErum HAYS Work Phone: NOMT External Department UnsolicitedStart: 12-12-2024 End: 43-88-4963Jkvbvrfna Result EncounterErum HAYS Work Phone: NOPZ External Department UnsolicitedStart: 12-11-2024 End: 43-41-6003mafucvfpqpSTGIE R [facility]S HOSPITALTaurusMedisunny Bryan HospitalStart: 12-11-2024 End: 08-71-6991Povpcqpfk Result EncounterErum HAYS Work Phone: NOYB External Department UnsolicitedStart: 12-11-2024 End: 66-17-5321Jzltyefyy Result EncounterErum HAYS Work Phone: NOAU External Department UnsolicitedStart: 12-10-2024 End: 01-17-1989Dbuwdo flowsheetErum HAYS Work Phone: NOMS [facility] OBGYNStart: 12-10-2024 End: 90-73-3840Mtybiw oliviaheetErum HAYS Work Phone: NOMS [facility] OBGYNStart: 12-10-2024 End: 09-93-3664Iganfweh flow sheetErum HAYS Work Phone: NOWK Glendo OBGYNComment on above:Size of fetus inconsistent with dates in second trimester ([facility]) (Primary Dx); Second trimester ([facility]); 25 weeks gestation of ([facility]); Diabetes mellitus screeningStart: 12-10-2024 End: 85-48-2081wmfislpnalZEJ RAMFORTINONot AvailableStart: 11-27-2024 End: 43-31-6329dsfcbugdujOXSGC R [facility] HospitalStart: 11-20-2024 End: 84-52-9952zlsgyyvukeOCAQB R [facility] HospitalStart: 11-12-2024 End: 34-75-4573Loylum flowsheetCorey Joanna DO Work Phone: noms [facility]endo OBGYNStart: 11-12-2024 End: 27-00-6317Tovebh flowsheetCorey Joanna DO Work Phone: noms Augustina OBGYNStart: 11-12-2024 End: 27-27-7811Dfmumgry flow sheetCorey Joanna DO Work Phone: noms Augustina OBGYNComment on above:Hypothyroidism, unspecified type (Primary Dx); Second trimester ([facility]); 21 weeks gestation of ([facility]); Vaginal discharge; STD exposureStart: 11-12-2024 End: 21-82-5051kzotapsunpPEAEY FAZIONot AvailableStart: 11-07-2024 End: 18-10-6193Jxpsgjspy Result EncounterCorey Joanna DO Work Phone: noms External Department UnsolicitedStart: 11-07-2024 End: 75-74-2643Xvyaqnxxs Result EncounterCorey Joanna DO Work Phone: noms External Department UnsolicitedStart: 11-06-2024 End: 05-40-9656Azwath Sesar Smith RNMaternal- Medicine at [facility] HospitalComment on above: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 trimester (Primary Dx); History of prior with IUGR ; History of premature rupture of membranesStart: 11-05-2024 End: 60-94-9123Peadam consultation new/estab patient 60 Jesus Campos MD Work Phone: [phone]-Obvcq [facility] at [facility] Comment on above:20 weeks gestation of (Primary Dx); Low-lying placenta; 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 trimester; History of prior with IUGR ; Family history of autism; History of gestational diabetes in prior , currently ; History of prior with short cervix, currently ; History of premature rupture of membranesStart: 11-05-2024 End: 49-17-6399yikgnzrvhwDAUIE [facility] HospitalStart: 10-15-2024 End: 17-79-5705Qdclnl flowsLizzie HAYS Work Phone: noms Augustina OBGYNStart: 10-15-2024 End: 18-52-8924Hdrvjd David HAYS Work Phone: NOPP [facility] OBGYNStart: 10-15-2024 End: 05-41-5540Tvffpekag Result EncounterErum HAYS Work Phone: noms External Department UnsolicitedStart: 10-15-2024 End: 78-22-4016Ngtzkiil flow Mahamed HAYS Work Phone: NOZY Augustina OBGYNComment on above:Second trimester ([facility]); 17 weeks gestation of ([facility])Start: 10-15-2024 End: 43-05-6215iukynfqaoxMMB RAMEYNot AvailableStart: 10-02-2024 End: 66-42-6371Lqwxqsact Result EncounterCorey Joanna DO Work Phone: noms External Department UnsolicitedStart: 10-02-2024 End: 60-37-2902Lpibxclkp Result EncounterCorey Joanna DO Work Phone: noms External Department UnsolicitedStart: 09-24-2024 End: 97-74-6651Mnaeo Rob Campos MD Work Phone: [phone]-Iegor [facility] Start: 09-24-2024 End: 56-25-8081Fcwiuhkco Result EncounterCorey Joanna DO Work Phone: noms External Department UnsolicitedStart: 09-24-2024 End: 09-41-6278Yyvptlhft Result EncounterCorey Joanna DO Work Phone: noms External Department UnsolicitedStart: 09-20-2024 End: 90-68-4166Lnabqu Kashif uGtierrez RNMaternal- Medicine at [facility] HospitalComment on above:Thyroid disease affecting (Primary Dx); History of prior with IUGR newbornStart: 09-17-2024 End: 08-69-4781Xtwrdt flowsheetCorey Joanna DO Work Phone: noms BCP OBStart: 09-17-2024 End: 36-85-3510Xxzgvr flowsheetCorey Joanna DO Work Phone: noms BCP OBStart: 09-17-2024 End: 17-55-5131hvvufefdbqVTWPD FAZIONot AvailableStart: 09-17-2024 End: 81-05-8771Aspswccb flow sheetCorey Joanna DO Work Phone: noms BCP OBComment on above:13 weeks gestation of ([facility]); Second trimester ([facility]); Thyroid disease ; History of prior with IUGR ; Diabetes mellitus screeningStart: 09-12-2024 End: 65-46-6253Vnfrfinao Result EncounterCorey Joanna DO Work Phone: noms External Department UnsolicitedStart: 09-12-2024 End: 31-11-3610Rnqawgmsj Result EncounterCorey Joanna DO Work Phone: noms External Department UnsolicitedStart: 08-21-2024 End: 28-40-3256Xxdwcxrxt Result EncounterCorey Joanna DO Work Phone: NOMS External Department UnsolicitedStart: 08-21-2024 End: 50-15-5796Kozlwswkn Result EncounterCorey Joanna DO Work Phone: NOMS External Department UnsolicitedStart: 08-17-2024 End: 74-26-7784Gscbcy outpatient visit 5 minutesNoms Bcp Ob Joanna NurseNOMS BCP OBComment on above:GA: 0d6uXuqtt: 08-17-2024 End: 06-08-0825kpknwjevhpQWEJP FAZIONot AvailableStart: 07-09-2024 End: 37-01-0342brzuzqhtpoQwtmnqEric AlmanzarFacility:[facility] PCStart: 07-05-2024 End: 05-53-2276eafmtcsmyjIrlna J SosinskiFacility:[facility] PCStart: 07-04-2024 End: 72-74-5878scswqinvjrLpzqbsEric AlmanzarFacility:FTMCStart: 07-04-2024 End: 88-79-9954Xhrkvla encounter Patsy Almanzar [facility] Start: 05-14-2024 End: 30-42-0747iyldhgzppmGNVUNJ E COSTINAkron [facility] Hospitaltart: 05-14-2024 End: 43-80-3222Zhuzpsqujt hospital visit by Krys Jurado MD Work Phone: [facility] LabComment on above:Family history of autismStart: 12-12-2023 End: 60-08-5143Ilgzzi flowsheetCorey Joanna DO Work Phone: NOMS BCP OBStart: 12-12-2023 End: 70-39-8945Visdbu flowsheetCorey Joanna DO Work Phone: NOMS BCP OBStart: 12-12-2023 End: 50-63-6767Offnfwuax Result EncounterCorey Joanna DO Work Phone: noMS External Department UnsolicitedStart: 12-12-2023 End: 85-75-5544Cywywsv encounter procedureCorey Joanna DO Work Phone: [facility] Work Phone: Start: 12-12-2023 End: 54-03-1949Ytblanmb preventive med est patient 18-39 yrsCorey Joanna DO Work Phone: NONV BCP OBComment on above:Well woman exam with routine gynecological examStart: 09-07-2023 End: 48-20-3472nfobgeejbrKeuhbtjun L ClarkFacility:FTMCStart: 09-07-2023 End: 59-85-7201Rcgbqdd encounter procedureYa Thornton [facility] Start: 08-08-2023 End: 16-03-7292muhakogpxvVwqmczdso L ClarkFacility:[facility] PCStart: 08-08-2023 End: 45-78-3635Oqczsms encounter Rosina Thornton [phone]-PkleeParkview Health [facility] Start: 07-12-2023 End: 09-00-2494zqbxakzaxiBWVTSFWZ E PERRYFacility:EU ueStart: 07-12-2023 End: 90-35-2532Uqfhdfa encounter procedureJENNIFER E SUKH [facility] start: 05-16-2023 End: 88-33-2552qstnyqsleyMyfomvxxj L ClarkFacility:FTMCStart: 05-16-2023 End: 56-90-9842ziirixpaccLbsocaogi L ClarkFacility:[facility] PCStart: 04-01-2023 ambulatoryYa ThorntonFacility:EU BellevueStart: 03-24-2023 End: 99-06-1096ybqojyxcklAdslwpuby L ClarkFacility:FTMCStart: 03-24-2023 End: 31-10-8506Morvwxk encounter procedureYa Thornton [facility] Start: 03-22-2023 End: 64-69-2973hmdloxxpqsEkgvytosy L ClarkFacility:FTMCStart: 03-22-2023 End: 12-53-3599Mzbcqmc encounter procedureYa Thornton [facility] Start: 03-09-2023 End: 42-24-7342Zjo Drop offYa Thornton [facility] start: 03-09-2023 End: 61-22-8079ynfocmvxhfRmtsnmohl L ClarkFacility:FTMCStart: 03-09-2023 End: 91-58-4451Doaoniu encounter procedureYa Thornton [phone]-TbfclParkview Health Montpel[facility] Start: 02-21-2023 End: 79-59-5536Ura Drop offYa Thornton [facility] Start: 02-21-2023 End: 37-26-1722vmjbwjnoqsWetsetqoj L ClarkFacility:FTMCStart: 02-21-2023 End: 39-96-7021Phrspue encounter procedureYa Thornton [phone]-TqakjParkview Health Montpel[facility] Hospital [facility] Start: 11-30-2022 End: 62-66-6723ufqtfnppbnHldd A SteinmetzFacility:[facility] DHStart: 11-30-2022 End: 23-62-8039Whhedre encounter procedureDaniel Gray [phone]-SwiaxParkview Health Montpel[facility] Hospital [facility] Start: 58-47-2001izytcvoiiiRhzpyjwoj Clark Facility:[facility] DHStart: 11-11-2022 End: 16-86-2013gpcwtittqzAanhwhaxb L ClarkFacility:[facility] PCStart: 11-11-2022 End: 72-96-3422Vtpacbq encounter procedureYa Thornton [phone]-GvfwdParkview Health [facility] Start: 10-08-2022 End: 76-50-8332cabtzvajdlNxokjkdmh L ClarkFacility:MCStart: 10-08-2022 End: 64-73-3246bzwxrfpepqCxyhkxdtw L ClarkFacility:[place] PCStart: 05-03-2022 End: 34-96-1529Ssfeaqh encounter procedureRitu Desai [phone]-RffqbParkview Health Montpelier Hospital [facility] Care Start: 10-19-2021 End: 35-89-8637dqddgmdtqlPJ SANTOSH FAZIOFacility:A5Sjdvn: 10-17-2021 End: 51-96-5983ojinsiavcgCL SANTOSH FAZIOFacility:C4Dkqck: 19-19-6486imonoqvtuuPW SANTOSH FAZIOFacility:I8Qeqfq: 07-13-2021 End: 34-59-7516aoorvrlhaxKB DOCTOR MISCFacility:C3Sifhj: 05-06-2021 End: 44-93-9894qezecakjxjSB ERASMO KARASIKFacility:V1Juztc: 02-24-2021 End: 12-38-8408lnvrkylvtiJS SANTOSH FAZIOFacility:L5Hwljy: 01-13-2021 End: 56-24-8460grqvqjhqzqKS SANTOSH FAZIOFacility:T8Kveql: 12-09-2020 End: 42-13-3821oigebmevxpPL SANTOSH FAZIOFacility:W3Srgpu: 12-02-2020 End: 51-08-7712ppdyislxtoHJ SANTOSH FAZIOFacility:H1 Procedures DateProcedureProcedure DetailPerforming ClinicianStart: 53-78-7464Btfgj dip stick/tablet rgnt non-auto w/o micrscpCorey Joanna DO Work Phone: Start: 94-44-3559Uqbxj dip stick/tablet rgnt non-auto w/o micrscpAmy Brea HAYS Work Phone: Start: 35-21-3587Zdfgs dip stick/tablet rgnt non-auto w/o micrscpCorey Joanna DO Work Phone: Start: 75-18-0068NJFCXMA TOLERANCE 3 HOURAmy Brea HAYS Work Phone: Start: 52-89-0256UPK CBC WITH AUTO DIFFAmy Brea HAYS Work Phone: Start: 76-64-6458Ofjsj dip stick/tablet rgnt non-auto w/o micrscpAmy Brea HAYS Work Phone: Start: 38-60-0985Ijetg dip stick/tablet rgnt non-auto w/o micrscpCorey Joanna DO Work Phone: Start: 35-53-7654UOU THYROID STIM HORMONECorey Joanna DO Work Phone: Start: 41-24-0546HNR, SERUM, OPEN SPINA BIFIDAAsusanne HAYS Work Phone: Start: 58-47-1944Xtqlz dip stick/tablet rgnt non-auto w/o micrscpCorey Joanna DO Work Phone: Start: 54-79-8914HKYVLWX 1 HOURCorey Joanna DO Work Phone: Start: 71-11-3364TIG MISCELLANEOUS TESTCorey Joanna DO Work Phone: Start: 59-03-0381BIJ MISCELLANEOUS TESTCorey Joanna DO Work Phone: Start: 42-36-5365Hlrvqcaybarry Campos MD Work Phone: Start: 78-10-7951VHN W Auto Differential panel - Blood Santosh R Joanna DO Work Phone: Start: 47-95-2448Cstg scrn 1+ class nonchromoNot In System Ref ProvStart: 80-17-5592Nuajkfdkfc glycosylated w7gPyhbl R Joanna DO Work Phone: Start: 37-81-7223Vwldqkshl c antibodyNot In System Ref ProvStart: 63-94-3256UAX 1&2 AB/AG SCREEN (P24 AG)Not In System Ref ProvStart: 00-99-4366Xkbu ia hepatitis b surface antigenNot In System Ref ProvStart: 42-18-4310KJMYRNHY TOTAL(UNKNOWN SYPHILIS STATUS)Not In System Ref ProvStart: 42-03-3709EJJX AND SCREENNot In System Ref ProvStart: 89-15-4108KOI CBC WITH AUTO DIFFCorey JoannaKare Partners Work Phone: Start: 08-17-2024 End: 45-48-7692Kmnfv dip stick/tablet rgnt non-auto w/o micrscpCorey JoannaKare Partners Work Phone: Start: 87-64-7554TAV,APTIMA HPV,AGE GDLNCorey JoannaKare Partners Work Phone: Start: 99-71-1815Yjcxs depression screening assessment Jacklyn Campos MD Work Phone: None (qualifier value)Ritu Desai Plan of Treatment DateCare ActivityDetailAuthorStart: 69-81-3187JKoW,Tdap and Td Vaccines (8 - Td or Tdap)DTaP,Tdap and Td Vaccines (8 - Td or Tdap)[facility] SystemStart: 11-06-2025 End: 98-95-0809EE MFM with or without consultUS MFM with or without consult Imaging Routine 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 trimester History of prior with IUGR History of premature rupture of membranes Expected: 11/06/2025 (Approximate), Expires: 11/06/2025[facility] Work Phone: comment on above:Expected: 11/06/2025 (Approximate), Expires: 11/06/2025Start: 55-52-8777Bulln BMI ScreeningAdult BMI Screening [facility] SystemStart: 50-69-0357Ifaivfz ScreeningTobacco Screening [facility] SystemStart: 02-13-2025 End: 49-73-3403Xiqwaef encounter /26/2025 10:50 AM EST Routine [facility] [address] [place] [phone] Santosh Marshall DO [address] [place] [address] NOMS [place] OBGYNStart: 02-04-2025 End: 65-61-6352Jsluemcyrcno / ancillary services dulzyjqobd04/17/2025 8:00 AM EST Ancillary Procedure [facility] [address] [place] [address] NOMS [facility] OBGYNStart: 01-28-2025 End: 90-73-5096VS biophysical profile w non stress testUS biophysical profile w non stress test Imaging Routine Thyroid disease History of prior with IUGR Hypothyroidism, unspecified type Expected: 01/28/2025 (Approximate), Expires: 07/28/2025[facility] Work Phone: comment on above:Expected: 01/28/2025 (Approximate), Expires: 07/28/2025Start: 01-28-2025 End: 77-33-0871ZX for pregnancyUS OB follow up transabdominal approach Imaging Routine Thyroid disease History of prior with IUGR Hypothyroidism, unspecified type Expected: 01/28/2025, Expires: 05/28/2025NOMS HealthcareComment on above:Expected: 01/28/2025, Expires: 05/28/2025Start: 01-28-2025 End: 31-80-5330Axmctpc encounter yftfdxlmh59/10/2025 8:30 AM EST Routine [facility] [address] [place], [id number] Santosh Marshall, DO [address] [place] [address] ArrivedNOMS Glendo OBGYNComment on above:ArrivedStart: 01-14-2025 End: 57-50-7796Hwtrbrk encounter procedureNOMS Augustina OBGYNComment on above: ArrivedStart: 01-01-2025 End: 42-47-9396Ylcyasm encounter procedureNOMS BCP OBStart: 12-31-2024 End: 22-73-2978Hynebne encounter pocgaboqp80/13/2025 11:00 AM EDT Routine [facility] [address] [place] [address] Santosh Marshall, DO [address] [place] [address] NOMS [place] OBGYNStart: 12-31-2024 End: 94-67-4967Eqagfixmekig / ancillary services ksbdvfviip34/13/2025 10:30 AM EDT Ancillary Procedure [facility] [address] [place] [address] [phone] Augustina OBGYNStart: 12-17-2024 End: 92-48-8076Mfuadza encounter hxvijnuvo96/29/2025 3:00 PM EDT Office Visit [facility] [address] [place] [address] Santosh Marshall, [address] [place] [address] NOMS BCP OBStart: 12-11-2024 End: 88-90-1973Iyfofzg encounter eltchixer11/23/2025 2:15 PM EDT Appointment [facility] - Ultrasound [address] [place] [address] [phone] Medical [facility] - UltrasoundStart: 12-10-2024 End: 13-73-6628CGX panel - Blood by Automated countCBC Lab Routine Diabetes mellitus screening Expected: 12/10/2024 (Approximate), Expires: 12/10/2025[facility] Work Phone: comment on above:Expected: 12/10/2024 (Approximate), Expires: 12/10/2025Start: 12-10-2024 End: 18-96-3406Fvjctemikjm of glucose 1 hour after glucose challenge for glucose tolerance testGlucose tolerance, 1 hour Lab Routine Diabetes mellitus screening Expected: 12/10/2024 (Approximate), Expires: 12/10/2025[facility] HealthcareComment on above:Expected: 12/10/2024 (Approximate), Expires: 12/10/2025Start: 12-10-2024 End: 71-98-8140VC for pregnancyUS OB follow up transabdominal approach Imaging Routine Size of fetus inconsistent with dates in second trimester ([facility]) Expected: 12/10/2024, Expires: 04/11/2025[facility] HealthcareComment on above: Expected: 12/10/2024, Expires: 04/11/2025Start: 12-10-2024 End: 58-10-4549Mehsvru encounter procedureNOMS Glendo OBGYNComment on above: ArrivedStart: 11-27-2024 End: 19-50-0761Kdmxswn encounter sdyegxeqi55/09/2025 3:15 PM EDT Appointment [facility] - Ultrasound [address] [place] [address] [phone] Hospitals [facility] - UltrasoundStart: 11-20-2024 End: 42-55-9636Dvtgahw encounter agrcyhqma96/02/2025 3:45 PM EDT Appointment [facility] [address] [place] [address] [phone] Health System US ImagingStart: 11-19-2024 Influenza vaccinationInfluenza VaccineECU Health Chowan Hospitaltart: 11-12-2024 End: 24-07-3895Hykuqzd encounter procedureUMESH [place] OBGYNComment on above: ArrivedStart: 11-05-2024 End: 02-70-8033Ioprjhr encounter procedurePeoples Hospital US ImagingStart: 10-21-2024 End: 32-38-2752TJ MFM with or without consultUS [facility] with or without consult Imaging Routine Thyroid disease affecting History of priorpregnancy with IUGR Expected: 10/21/2024 (Approximate), Expires: 09/20/2025 [facility] Work Phone: comment on above:Expected: 10/21/2024 (Approximate), Expires: 09/20/2025Start: 10-15-2024 End: 07-39-1935Riysc fetoprotein, maternalAlpha fetoprotein, maternal Lab Routine 17 weeks gestation of ([facility]) Expected: 10/15/2024 (Approximate), Expires: 12/16/2024[facility] Work Phone: comment on above:Expected: 10/15/2024 (Approximate), Expires: 12/16/2024Start: 10-15-2024 End: 58-52-9346Pusndmy encounter procedureNOMS CASSANDRA OBComment on above:Arrived Start: 09-17-2024 End: 29-15-6743Ecxozszkzat of glucose 1 hour after glucose challenge for glucose tolerance testGlucose tolerance, 1 hour Lab Routine Diabetes mellitus screening Expected: 09/17/2024 (Approximate), Expires: 09/17/2025[facility] Work Phone: comment on above:Expected: 09/17/2024 (Approximate), Expires: 09/17/2025Start: 09-17-2024 End: 32-11-2067Qslkowp encounter pgqoajjjr55/30/2025 10:50 AM EDT Routine [facility] [address] [place] [address] Santosh Marshall, DO [address] [place] [address] NOMS BCP OBStart: 08-17-2024 End: 54-38-7906INL/RhABO/Rh Lab Routine Missed menses , unspecified gestational age Expected: 08/17/2024 (Approximate), Expires: 08/17/2025[facility] HealthcareComment on above:Expected: 08/17/2024 (Approximate), Expires: 08/17/2025Start: 08-17-2024 End: 55-73-2928Lupuo type and Indirect antibody screen panel - BloodType and screen Lab Routine Missed menses , unspecified gestational age Expected: 08/17/2024 (Approximate), Expires: 08/17/2025[facility] HealthcareComment on above:Expected: 08/17/2024 (Approximate), Expires: 08/17/2025Start: 08-17-2024 End: 68-93-9405Ugwph of abuse panel - Urine by Screen methodRapid drug screen, urine Lab Routine , unspecified gestational age Encounter for supervision of normal first in first trimester Expected: 08/17/2024 (Approximate), Expires: 08/17/2025[facility] HealthcareComment on above:Expected: 08/17/2024 (Approximate), Expires: 08/17/2025Start: 08-09-2024 End: 08-30-1247QZ Pelvis transvaginalUS OB transvaginal Imaging Routine Missed menses Expected: 08/09/2024, Expires: 11/09/2024[facility] Work Phone: comment on above:Expected: 08/09/2024, Expires: 11/09/2024Start: 56-27-7473EPWWX-19 ( season)COVID-19 ( season)[facility] Hospital[facility]art: 91-40-8102RRP (#1)FLU (#1)[facility] Hospitaltart: 37-65-0197Qrahnickgy ScreeningDepression Screening [facility] SystemStart: 35-78-8857cosbovxrzwYllvofpzqtWuewitwv:H2Oogdn: 85-93-7680Bnwukwrgbam observation [Identifier] in Cervix by Cyto stainPap Smear [facility] Hospitaltart: 61-89-7454Nvsbyupca for malignant neoplasm of cervixPap SmearECU Health Chowan Hospitaltart: 42-28-6694Xamidffjy B (1 of 3 - 19+ 3-dose series)Hepatitis B (1 of 3 - 19+ 3-dose series)[facility] Start: [phone] BMI ScreeningAdult [facility] ScreeningC[facility] Start: [phone] (1 of 2 - MenB 2-Dose Series Bexsero)MenB (1 of 2 - MenB 2-Dose Series Bexsero)[facility]: [phone] (1 - 3-dose series)HPV (1 - 3-dose series)[facility]: 2011 Varicella (1 of 2 - 13+ 2-dose series)Varicella (1 of 2 - 13+ 2-dose series) [facility]: [phone] ScreeningTobacco Screening [facility]: 26-89-1278Yymoguj Diphtheria and Pertussis Vaccines (1 - Tdap)Tetanus Diphtheria and Pertussis Vaccines (1 - Tdap)[facility]: [phone] (1 of 1 - Standard series)MMR (1 of 1 - Standard series)[facility] identified [facility] Urine by Culture Urine culture Microbiology Routine Missed menses Ordered: 08/17/2024[facility] HealthcareComment on above:Ordered: 08/17/2024BC W Auto Differential panel - BloodCBC and differential Lab Routine Missed menses , unspecified gestational age Ordered: 08/17/2024[facility] HealthcareComment on above:Ordered: 08/17/2024HLAMYDIA TRACHOMATIS (GENITO/STI)CHLAMYDIA TRACHOMATIS (GENITO/STI) Lab Routine STD exposure Or[facility]: 11/12/2024[facility] HealthcareComment on above: Ordered: 11/12/2024ytology Cervical or vaginal smear or scraping studyPap Smear Pathology and Cytology Routine Well woman exam with routine gynecological exam Ordered: 12/12/2023[facility] Work Phone: comment on above:Ordered: 12/12/2023 End: 85-42-5795JQR Extraction and [facility] Work Phone: Comment on above:1 Occurrences starting 05/14/2024 until 05/14/2024, 1 completedHemoglobin A1c/Hemoglobin.total in BloodHemoglobin A1c Lab Routine Missed menses , unspecified gestational age Ordered: 08/17/2024[facility] HealthcareComment on above:Ordered: 08/17/2024Hepatitis B virus surface Ag [Presence] in Serum or Plasma by ImmunoassayHepatitis B surface antigen Lab Routine Missed menses , unspecified gestational age Ordered : 08/17/2024[facility] HealthcareComment on above:Ordered: 08/17/2024Hepatitis C virus Ab [Presence] in Serum or Plasma by ImmunoassayHepatitis C antibody Lab Routine Missed menses , unspecified gestational age Ordered: 08/17/2024[facility] HealthcareComment on above:Ordered: 08/17/2024HIV-1/HIV-2 antigen/antibody combination immunoassayHIV-1 and HIV-2 antibodies Lab Routine Missed menses , unspecified gestational age Ordered: 08/17/2024[facility] HealthcareComment on above:Ordered: 08/17/2024Neisseria gonorrhoeae DNA [Presence] in Unspecified specimen by FRANSISCO with probe detectionNeisseria gonorrhea DNA probe, direct Lab Routine STD exposure Ordered: 11/12/2024[facility] HealthcareComment on above:Ordered: 11/12/2024Reagin Ab [Presence] in Serum by RPRRPR Lab Routine Missed menses , unspecified gestational age Ordered: 08/17/2024[facility] HealthcareComment on above:Ordered: 08/17/2024Rubella antibody, IgGRubella antibody, IgG Lab Routine Missed menses , unspecified gestational age Ordered: 08/17/2024 [facility] HealthcareComment on above:Ordered: 08/17/2024SURESWAB(R) ADVANCED VAGINITIS PLUS, TMASURESWAB(R) ADVANCED VAGINITIS PLUS, TMA Pathology and Cytology Routine Vaginal discharge Ordered: 11/12/2024[facility] Work Phone: comment on above:Ordered: 11/12/2024Thyrotropin [Units/volume] in Serum or PlasmaTSH Lab Routine Missed menses , unspecified gestational age Encounter for supervision of normal first in first trimester Ordered: 08/17/2024[facility] HealthcareComment on above:Ordered: 08/17/2024 End: 97-72-7367Dneffjreqck [Units/volume] in Serum or PlasmaTSH Lab Routine Hypothyroidism, unspecified type 9 Occurrences starting 11/12/2024 until 11/12/2025[facility] Work Phone: comment on above:9 Occurrences starting 11/12/2024 until 11/12/2025US Pelvis transvaginalUS OB transvaginal Imaging Routine Missed menses 08/17/2024 9:27 AM [facility], [place] Immunizations Immunization DateImmunizationNotesCare TujmjwujJucuanzw16-45-9395lluidax toxoid, reduced diphtheria toxoid, and acellular pertussis vaccine, adsorbedNancyzabemonty Thornton [phone]-UkvpiC[facility]08-02-2016 meningococcal B vaccine, fully recombinantNancyzabeth Norberto [phone]-NmyapC[facility]06-27-2016 meningococcal ACWY vaccine, unspecified formulationNancyzabemonty Thornton [phone]-SzedcC[facility]06-27-2016 meningococcal B vaccine, fully recombinantNancyzabeth Norberto [phone]-EmhrqC[facility]04-04-2011 meningococcal ACWY vaccine, unspecified formulationNancyzabeth Norberto [phone]-IoqbbC[facility]04-04-2011 tetanus toxoid, reduced diphtheria toxoid, and acellular pertussis vaccine, adsorbedElizabeth Norberto [phone]-ZxepyC[facility]11-12-2009 influenza virus vaccine, unspecified formulationJacklyn Campos MD Work Phone: [phone] [place], [place] 7821107-28-2004DTaP, unspecified formulationElizabeth Norberto [phone]-BiyboC[facility]07-28-2004 measles, mumps and rubella virus vaccineElizadaniel Thornton [phone]-NejsjC[facility] Clinic [facility]07-28-2004 poliovirus vaccine, unspecified formulationElisampson Thornton [phone]-Ujzdm[address] [place], [place] 2867811-15-2000DTaP, unspecified formulationElizadaniel Thornton [phone]-Jylln[address] [place], [place] 2867811-08-1999 measles, mumps and rubella virus vaccineElizabemonty Thornton [phone]-Jlxii[address] [place], [place] 2867811-08-1999 varicella virus vaccineElizadaniel Thornton [phone]-Nyjtb[address] [place], [place] 2867807-23-1999DTaP, unspecified formulationElisampson Thornton [phone]-Cvpaw[address] [place] [address] Primary Ktxa68-45-7894SCuM, unspecified formulationElizadaniel Thornton [phone]-Nbgpz[address] [place] [address] Primary Kovq69-67-6782VSpE, unspecified formulationYa Thornton [phone]-Utelx[address] [place], [place] 2867810-31-1998 hepatitis B vaccine, pediatric or pediatric/adolescent dosageElizadaniel Thornton [phone]-LmfopParkview Health [facility] Primary CareNEGATED: Highlighted row has not occurred!57-40-9835bspvshgrw virus vaccine, unspecified formulationDaniel Gray [phone]-FzakeParkview Health [facility] Digestive HealthNEGATED: Highlighted row has not occurred!89-69-4268kzcketols virus vaccine, unspecified formulationRitu Desai [phone]-XdedoParkview Health [facility] Care Payers DatePayer CategoryPayerPolicy [id number] [facility] [id number] [facility] - [id number] [id number]60260277254018-31-9617Yzvmcgj Health [id number] 2023Medicaid [facility]CH[facility] MEDICAID [id number] Care Other (unspecified)[employer] [id number] 2.840.1.872701.3.57[id number] 2.160.1.406525.3.579.2.82939-32-3768Ankgqma3986920 2.0.1.845306.3.579.2.72610-74-0465Nmhzujs4523180 2.840.1.728667.3.579.[id number] 2.840.1.597702.3.579.2.87487-86-8853Bwywsyj6711833 2.0.1.722104.3.579.2.15683-77-8588Sdwtshx3823228 2.0.1.743792.3.579.2.69022-47-9783Zkwzkrb4032382 2.840.1.741640.3.579.2.22086-83-7825Xmfrcwx6966374 2.840.1.385812.3.579.2.10715-65-2485Awerlbc9643646 2.840.1.241090.3.579.2.37348-29-7429Hluvuqy81451628 2.16840.1.858458.3.579.2.23299-27-7060Bijgrjv37844903 2.840.1.517050.3.579.2.05736-95-8479Ybbzuwu94127391 2.16840.1.974891.3.579.2.24361-65-3217Oevyknf46096726 2.16840.1.187948.3.579.2.11538-52-7353Diezwrx81251328 2.16840.1.858911.3.579.2.84204-01-9616Dhhided29043219 2.16840.1.923313.3.579.2.02176-40-2354Birwbvk27072511 2.16840.1.975419.3.579.2.92364-68-7339Ptcbvyj70872845 2..1.104108.3.579.2.16174-64-6580Tkgpfwq54165344 2.840.1.380878.3.579.2.65472-55-2228Ndomhwq59286090 2.840.1.078417.3.579.[id number] 2.840.1.023017.3.579.2.04277-47-2156Edntfcn24828072 2..1.125972.3.579.2.87666-69-9376Unplhoj56020032 2.16840.1.758640.3.579.2.90904-68-9759Zhiavqc42492940 2.16840.1.727467.3.579.2.80002-55-8935Fcebnpg52018838 2.16840.1.158492.3.579.2.48622-57-3020Riljsou51377051 2.840.1.248780.3.579.2.22370-01-8079Msqkycj716747584 2.16.840.1.261844.3.579.2.72040-92-1348Xnxggkp57207571 2.16.840.1.071942.3.579.2.98906-06-1528Otazjqe05646263 2.16.840.1.298284.3.579.2.48220-60-6861Zrxofmw91577657 2.16.840.1.793793.3.579.2.59339-44-8744Jluhrhe89093542 2.16.840.1.449021.3.579.2.68943-22-9691Nrwypgu86690295 2.16.840.1.178253.3.579.2.47142-34-1633Mtsteeb49875055 2.16.840.1.041998.3.579.2.65338-72-1240Cgpmivu19326058 2.16.840.1.153997.3.579.2.39426-52-2482Ekxpozp267846560 2.16840.1.507603.3.579.2.075954-43-4661Kohrwfa113423969 2.16.840.1.711745.3.579.2.724444-30-4056Bgmzbuo590670321 2.16.840.1.312556.3.579.2.981386-37-0746Mhumufb027879094 2.16.840.1.242959.3.579.2.941864-00-2788Bknwdxl700706385 2.16.840.1.751265.3.579.2.500849-65-0481Ikfvigg71032734 2.16.840.1.354810.3.579.2.472373-32-9959Reahqyn43608958 2.16.840.1.159784.3.579.2.003203-95-3391Qhffznd01723102 2.16.840.1.676959.3.579.2.567837-10-6656Yeofvup10949445 2.16.840.1.297304.3.579.2.763077-48-2885Wtgrwor96860435 2.16.840.1.597834.3.579.2.754748-18-4591Rdrpfxg10137554 2.16.840.1.029555.3.579.2.420242-58-5877Hbslzxy85642702 2.16.840.1.859433.3.579.2.977412-89-7924Qqztbrz57625042 2.16.840.1.655836.3.579.2.374297-88-8740Vaignhf1180391 2.16.840.1.065682.3.579.2.354106-01-2517Gndpsgx6707308 2.16.840.1.798053.3.579.2.132208-42-1782Xgre-srf22-73-6391Iugyjzb296759463619 54-53-0446Oinsfth02563463411687601Bvfhzmz0892499232345-75-2644Xtvmcqa3561744035Qvjoowa0528910 2.0.1.373075.3.579.2.238Rtdecau091148569380 Social History DateTypeDetailFacilityStart: 05-03-2022 End: 07-53-5609Wllhyrj smoking statusNever smoked tobacco (finding)[facility] Primary CareStart: 38-80-3563Yxxbwcm smoking statusNeverSalem City Hospital Primary CareStart: 07-12-2023 End: 47-80-7734Ioi Assigned At BirthFeBerger Hospitaltart: 12-12-2023 End: 17-83-3014Yaqpywkyf beverage intakeCurrent drinker of alcohol (finding)[facility]Start: 07-12-2023 End: 84-33-6094Yeqmrsq of Social functionNOMS HealthcareStart: 63-16-5192Ebijuhk Commentoccasional alcohol useNOMS HealthcareStart: 84-68-6278Bgr assigned at birthNot on fileHCA Midwest DivisionTobacco smoking status NHISTobacco smoking consumption unknownOhioHealth Marion General Hospitalexual OrientationScci Hospital Lima Start: 07-02-2009 End: 15-40-6922JzlJsywyf (finding)[facility] Hospitaltart: 06-30-2024 PregnancyNOMS HealthcareStart: 42-89-7020Wqaddfh use and exposureSmokeless tobacco non-userTrinity Health System West Campus SystemStart: 09-24-2024 End: 33-46-4816Kgyujshtq beverage intakeEx-drinker (finding)[facility] SystemThe thought of harming myself has occurred to [facility] Medical Equipment Procedure CodeEquipment CodeEquipment Original TextEquipment IdentifierDates Glucose Test Strips, See Instructions, 1 EA, 3, Glucose Test Strips, [facility], Supply, 166, cm, 10/08/22 15:10:00 EDT, Height/Length Dosing, 57.8, kg, 10/08/22 15:10:00 EDT, Weight DosingStart: 40-22-8977Vofsrmo, See Instructions, 100 lancet(s), 3, Lancets, [facility], Supply, 166, cm, 10/08/22 15:10:00 EDT, Height/Length Dosing, 57.8, kg, 10/08/22 15:10:00 EDT, Weight DosingStart: 99-25-6624Nmduszb Test Strips, See Instructions, 1 EA, 3, Glucose Test Strips, [facility], Supply, 166, cm, 10/08/22 15:10:00 EDT, Height/Length Dosing, 57.8, kg, 10/08/22 15:10:00 EDT, Weight DosingStart: 31-35-4056Wqqmhix, See Instructions, 100 lancet(s), 3, Lancets, [facility], Supply, 166, cm, 10/08/22 15:10:00 EDT, Height/Length Dosing, 57.8, kg, 10/08/22 15:10:00 EDT, Weight DosingStart: 55-14-4574Iyamyah Test Strips, See Instructions, 1 EA, 3, Glucose Test Strips, [facility], Supply, 166, cm, 10/08/22 15:10:00 EDT, Height/Length Dosing, 57.8, kg, 10/08/22 15:10:00 EDT, Weight DosingStart: 40-50-7294Updazbi, See Instructions, 100 lancet(s), 3, Lancets, [facility], Supply, 166, cm, 10/08/22 15:10:00 EDT, Height/Length Dosing, 57.8, kg, 10/08/22 15:10:00 EDT, Weight DosingStart: 13-61-3897Qvtgdui Test Strips, See Instructions, 1 EA, 3, Glucose Test Strips, [facility], Supply, 166, cm, 10/08/22 15:10:00 EDT, Height/Length Dosing, 57.8, kg, 10/08/22 15:10:00 EDT, Weight DosingStart: 55-06-6426Ktpctnr, See Instructions, 100 lancet(s), 3, Lancets, [facility], Supply, 166, cm, 10/08/22 15:10:00 EDT, Height/Length Dosing, 57.8, kg, 10/08/22 15:10:00 EDT, Weight DosingStart: 19-19-6969Bejgaoz Test Strips, See Instructions, 1 EA, 3, Glucose Test Strips, [facility], Supply, 166, cm, 10/08/22 15:10:00 EDT, Height/Length Dosing, 57.8, kg, 10/08/22 15:10:00 EDT, Weight DosingStart: 53-71-2161Qoyrtek, See Instructions, 100 lancet(s), 3, Lancets, [facility], Supply, 166, cm, 10/08/22 15:10:00 EDT, Height/Length Dosing, 57.8, kg, 10/08/22 15:10:00 EDT, Weight DosingStart: 11-60-2803Fpalkap Test Strips, See Instructions, 1 EA, 3, Glucose Test Strips, [facility], Supply, 166, cm, 10/08/22 15:10:00 EDT, Height/Length Dosing, 57.8, kg, 10/08/22 15:10:00 EDT, Weight DosingStart: 96-14-7203Alseixl, See Instructions, 100 lancet(s), 3, Lancets, [facility], Supply, 166, cm, 10/08/22 15:10:00 EDT, Height/Length Dosing, 57.8, kg, 10/08/22 15:10:00 EDT, Weight DosingStart: 20-48-6110Xvjoiyt Test Strips, See Instructions, 1 EA, 3, Glucose Test Strips, [facility], Supply, 166, cm, 10/08/22 15:10:00 EDT, Height/Length Dosing, 57.8, kg, 10/08/22 15:10:00 EDT, Weight DosingStart: 54-79-0813Sfpvevq, See Instructions, 100 lancet(s), 3, Lancets, [facility], Supply, 166, cm, 10/08/22 15:10:00 EDT, Height/Length Dosing, 57.8, kg, 10/08/22 15:10:00 EDT, Weight DosingStart: 88-43-5724Xawkgaj Test Strips, See Instructions, 1 EA, 3, Glucose Test Strips, [facility], Supply, 166, cm, 10/08/22 15:10:00 EDT, Height/Length Dosing, 57.8, kg, 10/08/22 15:10:00 EDT, Weight DosingStart: 58-58-9590Fegvows, See Instructions, 100 lancet(s), 3, Lancets, [facility], Supply, 166, cm, 10/08/22 15:10:00 EDT, Height/Length Dosing, 57.8, kg, 10/08/22 15:10:00 EDT, Weight DosingStart: 45-92-7675Bcnheng Test Strips, See Instructions, 1 EA, 3, Glucose Test Strips, [employer] #37, Supply, 166, cm, 10/08/22 15:10:00 EDT, Height/Length Dosing, 57.8, kg, 10/08/22 15:10:00 EDT, Weight DosingStart: 07-73-5233Crirkfy, See Instructions, 100 lancet(s), 3, Lancets, [employer] [facility], Supply, 166, cm, 10/08/22 15:10:00 EDT, Height/Length Dosing, 57.8, kg, 10/08/22 15:10:00 EDT, Weight DosingStart: 04-90-2201Tgayfrm Test Strips, See Instructions, 1 EA, 3, Glucose Test Strips, [employer] [facility], Supply, 166, cm, 10/08/22 15:10:00 EDT, Height/Length Dosing, 57.8, kg, 10/08/22 15:10:00 EDT, Weight DosingStart: 63-05-3267Ukydwli, See Instructions, 100 lancet(s), 3, Lancets, [employer] [facility], Supply, 166, cm, 10/08/22 15:10:00 EDT, Height/Length Dosing, 57.8, kg, 10/08/22 15:10:00 EDT, Weight DosingStart: 02-97-2747Pakknyx Test Strips, See Instructions, 1 EA, 3, Glucose Test Strips, [facility], Supply, 166, cm, 10/08/22 15:10:00 EDT, Height/Length Dosing, 57.8, kg, 10/08/22 15:10:00 EDT, Weight DosingStart: 70-53-0207Duxghsa, See Instructions, 100 lancet(s), 3, Lancets, [employer] [facility], Supply, 166, cm, 10/08/22 15:10:00 EDT, Height/Length Dosing, 57.8, kg, 10/08/22 15:10:00 EDT, Weight DosingStart: 43-60-5614Ocbjflq Test Strips, See Instructions, 1 EA, 3, Glucose Test Strips, [employer] [facility]37, Supply, 166, cm, 10/08/22 15:10:00 EDT, Height/Length Dosing, 57.8, kg, 10/08/22 15:10:00 EDT, Weight DosingStart: 16-26-8604Vastryg, See Instructions, 100 lancet(s), 3, Lancets, [employer] [facility]37, Supply, 166, cm, 10/08/22 15:10:00 EDT, Height/Length Dosing, 57.8, kg, 10/08/22 15:10:00 EDT, Weight DosingStart: 53-01-7440Hwv daily as directed & as neededStart: 03-26-2021 Functional Status BfaxFljythsynjJyqnpfMcuijjqj52-73-1268Ewysaiapbb StatusN/[facility] Wwal84-89-6606Pgtfzmnukh StatusN/[facility] Primary Vbms56-85-4061Kmntowkgai StatusN/[facility] Primary Geug78-79-7636Uhxazhkhey StatusN/[facility] Digestive Health 29-04-9546Ojtltrzavr StatusN/[facility] Primary Kodo60-33-3110 Functional StatusN/[facility] Care Clinical Notes 05-03-2022 to 01-28-2025 Note Date & CklvQwkgAbwlohdl49-04-3621 History of Present illness Narrative* Abril Stone [...] nursing note reviewed. Exam conducted with a enamel burner present. Vitals: Estimated body mass index is 26.29 kg/m as calculated from the following: Height as of 11/29/22: 5' 5 . Weight as of this encounter: 158 lb. BP: 124/70 Patient's last menstrual period was 06/16/2024. Assessment/Plan ICD-10-CM 1. Third trimester ([facility]) Z34.93 POCT urinalysis dipstick manually resulted 2. 32 weeks gestation of ([facility]) Z3A.32 3. Thyroid disease E07.9 4. History [...] of: Santosh Marshall DO documented in this encounterHCA Midwest DivisionDsntplmcpr78-45-4934 History of Present illness Narrative* Abril Stone [...] nursing note reviewed. Exam conducted with a enamel burner present. Vitals: Estimated body mass index is 26.71 kg/m as calculated from the following: Height as of 23: 5' 5 . Weight as of this encounter: 160 lb 8 oz. BP: 126/72 Patient's last menstrual period was 06/16/2024. Assessment/Plan ICD-10-CM 1. Third trimester ([facility]) Z34.93 POCT urinalysis dipstick manually resulted 2. 30 weeks gestation of ([facility]) Z3A.30 Return OB: Patient presents today [...] of: Santosh Marshall DO documented in this encounterHCA Midwest DivisionJtychhzcue80-77-7553 History of Present illness Narrative* Daiana Villarreal [...] nursing note reviewed. Exam conducted with a enamel burner present. Vitals: Estimated body mass index is 25.38 kg/m as calculated from the following: Height as of 11/29/22: 5' 5 . Weight as of this encounter: 152 lb 8 oz. BP: 106/68 Patient's last menstrual period was 06/16/2024. ASSESSMENT & PLAN ICD-10-CM 1. Third trimester ([facility]) Z34.93 POCT urinalysis dipstick manually resulted 2. 28 weeks gestation of ([facility]) Z3A.28 Patient presents today for a routine obstetrics appointment. Patient is currently 28w2d with a Estimated Date of Delivery: 03/23/25. Patient had growth scan done prior to today's appointment. Patient will start NST/BPP at 32 weeks. Patient to return to clinic in 2 weeks. Documented by Daiana Villarreal LPN on behalf of: Santosh Marshall DO documented in this encounterHCA Midwest DivisionYigspuakmy81-16-7967 History of Present illness Narrative* LIS Man [...] ASSESSMENT & PLAN ICD-10-CM 1. Second trimester ([facility]) Z34.92 POCT urinalysis dipstick manually resulted 2. 25 weeks gestation of ([facility]) Z3A.25 3. Diabetes mellitus screening Z13.1 CBC [...] of: LIS Man documented in this encounterNOMS Rbzqlyggqi63-86-3174 History of Present illness Narrative* Abril Stone, [...] nursing note reviewed. Exam conducted with a enamel burner present. Vitals: Estimated body mass index is 23.15 kg/m as calculated from the following: Height as of 11/29/22: 5' 5 . Weight as of this encounter: 139 lb 1.9 oz. BP: 110/72 Patient's last menstrual period was 06/16/2024. ASSESSMENT & PLAN ICD-10-CM 1. Second trimester ([facility]) Z34.92 POCT urinalysis dipstick manually resulted 2. 21 weeks gestation of ([facility]) Z3A.21 POCT urinalysis dipstick manually resulted 3. [...] 4 weeks; She is followed closely per [facility] with history of hypothyroidism. Will obtain growth ultrasounds every 4 weeks and begin NST/BPP at 32 weeks. Documented by Abril Stone NP on behalf of: Santosh Marshall DO documented in this encounterHCA Midwest DivisionWeupljinkf82-94-2946 History of Present illness Narrative* Nadira Salazar [...] risk Have you been seen here at [facility] in a previous ? Recent ER visits or hospitalizations? No Bring blood sugar log or meter with you today? (Please bring them with you for every visit at [facility]) NA Flu vaccine (Jan-May)? NA Any [...] Jacklyn Campos MD, FACOG (she/hers) Maternal- Medicine [facility] [address] [facility] [address] [place] [address] This document was created with [employer] technology. Though I make every effort to review the dictation as it is transcribed, on occasion the spoken word can be misinterpreted by the technology leading to inappropriate words, phrases, or sentences. This note is addressed to the requesting provider as a consultation for clinical guidance. Specificmedical abbreviations are occasionally used and those are generally approved by the [place]?Board of?Obstetrics and?Gynecology?as well as?Lucy campos abbreviations. The above plan of care was based solely on the diagnoses for which a consultation was requested. ?More frequent testing may be indicated based on her other medical/obstetrical conditions. The management of other or medical conditions is beyond the scope of requested consultation and will c ontinue to be followed by the primary fur machine operator or primary care provider. Note [...] opinion of the practitioner. documented in this encounterPremier Health Miami Valley HospitalBeFunky [id number] History of Present illness Narrative* LIS Man [...] ASSESSMENT & PLAN ICD-10-CM 1. Second trimester ([facility]) Z34.92 2. 17 weeks gestation of ([facility]) Z3A.17 POCT urinalysis dipstick manually resulted [...] behalf of: LIS Man documented in this encounterHCA Midwest DivisionUueldgdezq00-56-8920 History of Present illness Narrative* Aliya JeronimoKALE [...] nursing note reviewed. Exam conducted with a enamel burner present. Vitals: Estimated body mass index is 22.1 kg/m as calculated from the following: Height as of 11/29/22: 5' 5 . Weight as of this encounter: 132 lb 12.8 oz. BP: 112/70 Patient's last menstrual period was 06/16/2024. ASSESSMENT & PLAN ICD-10-CM 1. 13 weeks gestation of ([facility] Z3A.13 2. Second trimester ([facility]) Z34.92 3. Thyroid disease E07.9 levothyroxine [...] or undercooked meat, and stay away from [facility]. Patient has been consulted regarding any further do's and don'tsof . Patient voiced understanding and all questions and concerns were answered. Pt has h/o IUGR, thyroid disease, pt being referred to [facility] for level II ultrasound. Pt should be taking 125mcg of levothyroxine. Pt voiced understanding. Pt to start baby aspirin. Orders Placed This Encounter Procedures Glucose tolerance, 1 hour Follow Up: Patient is to return in 4 weeks for routine OB appointment. Documented by Aliya Jeronimo LPN on behalf of: Santosh Marshall DO documented in this encounterHCA Midwest [id number] History of Present illness Narrative* Carmita Tapia, [employer] - 08/17/2024 9:30 AM EDT Reason for [...] or undercooked meat, and stay away from [facility]. Patient has also been advised to not change litter boxes and eat 6 small meals a day. Patient has been consulted regarding the do's and don'ts ofpregnancy. Patient was given labs and all questions and concerns were answered. Patient was sent in Magnesium for headaches. Patient given [place] labs to do with initial labs along [...] by: Carmita Tapia LPN documented in this encounterHCA Midwest [id number] NotePatient Education Endocrinology Hypothyroidism Hypothyroidism is when [...] Follow these instructions at home: ??? Take ndeb-gbx-ogmpdjz and prescription medicines only as told by [...] Reviewed: 03/09/2022 Elsevier Patient Education ? 2023 [employer] Obstetrics and Gynecology Health Maintenance, Female Adopting a healthy lifestyle and getting preventive care are important in promoting health and wellness. Ask your health care provider about: ??? The right schedule for you to have regular tests and exams. ??? Things (more content not included)...[facility]04-17-2025 NotePatient Education ENT How to Perform [...] cannot use soap and water, use hand double head machine operator. 2. Wash your device using the [...] provider. Document Revised: 08/24/2021 Document Reviewed: 08/24/2021 [employer] Patient Education ? 2023 [employer]. Infectious Disease Sinus Infection, Adult A sinus [...] this diagnosed? Your s (more content not included)...[facility]09-23-2024 History of Present illness Narrative* Daiana [...] Diagnosis Date BMI 23.0-23.9, adult Thyroid disease ([facility]/HCC) Well woman exam HISTORY PAST MEDICAL [...] nursing note reviewed. Exam conducted with a enamel burner present. Vitals: Estimated body mass index is [...] of: Santosh Marshall DO documented in this encounterH[facility] [id number] Hospital Discharge instructions Patient Education 08/08/2023 16:25:47 [...] to help relieve pain. General instructions Take mqgt-vzq-iyodecx and prescription medicines only as told by [...] provider. Document Revised: 10/22/2020 Document Reviewed: 10/22/2020 [employer] Patient Education 2022 [employer]. 08/08/2023 16:25:44 Hemorrhoids Hemorrhoids Hemorrhoids are swollen [...] 3 times a day. General instructions Take zucg-hco-ztrtkfd and prescription medicines only as told by [...] provider. Document Revised: 09/16/2021 Document Reviewed: 09/16/2021 [employer] Patient Education 2022 [employer]. 08/08/2023 16:25:43 Urinary Tract Infection, Adult Urinary [...] Treatment for this condition includes: Antibiotic medicine. Kkct-rpx-ulvadlz medicines to treat discomfort. Drinking enough water [...] Follow these instructions at home: Medicines Take wmab-bqv-wreelee and prescription medicines only as told by [...] provider. Document Revised: 10/17/2020 Document Reviewed: 10/17/2020 [employer] Patient Education 2022 [employer]. 08/08/2023 16:25:41 Hypothyroidism Hypothyroidism Hypothyroidism is when [...] away. Follow these instructions at home: Take cfmu-hjj-sdnzopc and prescription medicines only as told by [...] provider. Document Revised: 03/09/2022 Document Reviewed: 03/09/2022 [employer] Patient Education 2022 [employer]. [facility] 05-20-2024 Evaluation + Plan note Future Scheduled Tests Laboratory* UA with Cult Rflx 08/08/23 * CBC w/ Auto Diff 02/08/24 * Comprehensive Metabolic Panel 02/08/24 * Thyroid Stimulating Hormone 02/08/24 * Thyroid Stimulating Hormone 05/16/23 * Free T4 02/08/24 * Free T4 05/16/23 [facility] 12-20-2023 Hospital Discharge instructions [...] including vitamins, herbs, eye drops, creams, and wiyp-vri-diqrbsd medicines. ?Whether you are or may be [...] provider. Document Revised: 11/18/2021 Document Reviewed: 10/10/2020 [employer] Patient Education 2022 [employer]. 03/09/2023 08:08:48 Urinary Tract Infection, Adult Urinary [...] Treatment for this condition includes: Antibiotic medicine. Rtsi-nrx-tdcjcoy medicines to treat discomfort. Drinking enough water [...] Follow these instructions at home: Medicines Take axnt-nvc-eobnccc and prescription medicines only as told by [...] provider. Document Revised: 10/17/2020 Document Reviewed: 10/17/2020 [employer] Patient Education 2022 [employer]. 03/09/2023 08:08:46 Hypothyroidism Hypothyroidism Hypothyroidism is when [...] away. Follow these instructions at home: Take yceo-whf-busqtgm and prescription medicines only as told by [...] provider. Document Revised: 03/09/2022 Document Reviewed: 03/09/2022 [employer] Patient Education 2022 [employer]. Follow Up Care 03/07/2023 12:06:45 With:Ya Wang FAM, [facility] Address: [address], [address] [place] [phone] Business (1) When:05/25/2023 Comments:for f/u [facility] 12-04-2023 Hospital Discharge instructions [...] Follow these instructions at home: Medicines Take gplq-lms-njehfsj and prescription medicines only as told by [...] provider. Document Revised: 10/17/2020 Document Reviewed: 10/17/2020 [employer] Patient Education 2022 [employer]ge. Follow Up Care 02/21/2023 08:19:47 With:Ya Wang FAM, MED Address: [address] [place], [place] [phone] Business (1) When:05/25/2023 Comments:for f/u [facility] 09-12-2023 Hospital Discharge instructions [...] Bulgur wheat. Millet. Quinoa. Bran muffins. Popcorn. [place] wafer crackers. Meats and other proteins [place] beans, kidney beans, and díaz beans. Soybeans. [...] Cream cheese. Sour cream. Fats and oils [place]. Beverages Soft drinks. Other foods Cakes and [...] Document Reviewed: 07/10/2020 Elsevier Patient Education 2022 [employer]ge. Follow Up Care 11/11/2022 12:10:41 With:Daniel Gray CNP Address: When:2 weeks Comments:Following EGD/Colonoscopy. [facility] 08-24-2023 Hospital Discharge instructions [...] per serving. Talk with a diet and animal nutritionist (dietitian) if you have questions about [...] Bulgur wheat. Millet. Quinoa. Bran muffins. Popcorn. [place] wafer crackers. Meats and other proteins [place], kidney, and díaz beans. Soybeans. Split peas. [...] Cream cheese. Sour cream. Fats and oils [place]. Beverages Soft drinks. Other foods Cakes and [...] 03/07/2006 Document Revised: 01/09/2018 Document Reviewed: 01/09/2018 [employer] Patient Education 2020 EdSurge. 11/11/2022 01:00:54 Hemorrhoids Hemorrhoids Hemorrhoids are swollen [...] 3 times a day. General instructions Take xwdx-amd-rptgtty and prescription medicines only as told by [...] provider. Document Revised: 09/16/2021 Document Reviewed: 09/16/2021 [employer] Patient Education 2022 EdSurge. Follow Up Care 11/08/2022 14:59:04 With:Ya Wang FAM, [facility] Address: [address] [place] [address] [facility] (1) When:Within 3 Month(s) Comments:3 mo f/u [facility] 02-13-2023 Hospital Discharge instructions [...] away. Follow these instructions at home: Take buly-lwa-luicobw and prescription medicines only as told by [...] 03/07/2006 Document Revised: 02/17/2018 Document Reviewed: 02/15/2018 [employer] Patient Education [employer]. Follow Up Care 04/05/2022 12:35:49 With:Ritu Desai CNP Address: [address] [place] [phone] When:1 year Comments:or sooner if needed. [facility] Evaluation + Plan note No data available for this section [facility] Evaluation + Plan note Future Appointments Appointment Date:11/30/2022 12:00:00 PM Scheduled Provider:Daniel Gray CNP Location[facility] Appointment Type:BAD New Patient Appointment Date:04/04/2023 01:00:00 PM Scheduled Provider:Ya Wang Location:[facility] Appointment Type: Open Future Scheduled Tests Laboratory* TSH With T4fr Reflex 10/08/22 [facility] Evaluation + Plan note Future Appointments Appointment Date:04/04/2023 01:00:00 PM Scheduled Provider:Ya Wang Location:[facility] Appointment Type:FM Open Future Scheduled Tests Laboratory* TSH With T4fr Reflex 10/08/22 [facility] Evaluation + Plan note Future Appointments Appointment Date:07/25/2023 10:00:00 AM Scheduled Provider:Ya Wang Location:[facility] Appointment Type:FM Open Future Scheduled Tests Laboratory* T3 Free 02/21/23 * Thyroid Stimulating Hormone 02/21/23 * Free T4 02/21/23 [facility] Evaluation + Plan note Future Appointments Appointment Date:07/25/2023 10:00:00 AM Scheduled Provider:Ya Wang Location:[facility] Appointment Type:FM Open Diagnostic Tests Pending * Urine Culture 02/21/23 Future Scheduled Tests Laboratory* T3 Free 02/21/23 * Thyroid Stimulating Hormone 02/21/23 * [facility] T4 [facility] Appointment Date:07/25/2023 10:00:00 AM Scheduled Provider:Ya Wang [facility] Appointment Type:FM Open Future Scheduled Tests Laboratory* T3 Free 02/21/23 * Thyroid Stimulating Hormone 02/21/23 * Free T4 02/21/23 Radiology* US Retroperitoneal Complete 03/09/23 [facility] Evaluation + Plan note Future Appointments Appointment Date:07/25/2023 10:00:00 AM Scheduled Provider:Ya Wang [facility] Appointment Type:FM Open Diagnostic Tests Pending * Urine Culture 03/09/23 Future Scheduled Tests Laboratory* T3 Free 02/21/23 * Thyroid Stimulating Hormone 02/21/23 * Free T4 02/21/23 Radiology* US Retroperitoneal Complete [facility]/09/[facility] Future App[facility]ments Appointment Date:07/12/2023 09:30:00 AM Scheduled Provider:OPAL LUZ PA-C Location:[facility] Appointment Type:URO New Patient Appointment Date:07/25/2023 10:00:00 AM Scheduled Provider:Ya Wang [facility] Type:FM Open Diagnostic Tests Pending * T3 Free 03/22/23 [facility] Future Appointments Appointment Date:07/12/2023 09:30:00 AM Scheduled Provider:OPAL LUZ PA-C Location:[facility] Appointment Type:URO New Patient Appointment Date:07/25/2023 10:00:00 AM Scheduled Provider:Ya Wang [facility]ment Type:FM [facility] Future Appointments Appointment Date:07/25/2023 10:00:00 AM Scheduled Provider:Ya Wang Location:[facility] Appointment Type:FM Open Future Scheduled Tests Laboratory* Thyroid Stimulating Hormone 05/16/23 * Free T4 05/16/23 [facility] evaluation + Plan note Future Scheduled Tests Laboratory* CBC w/ Auto Diff 02/08/24 * Comprehensive Metabolic Panel 02/08/24 * Thyroid Stimulating Hormone 02/08/24 * Free T4 02/08/24 [facility] Future Appointments Appointment Date:07/09/2024 08:00:00 AM Scheduled Provider:Marta Rivas Location:[facility] Appointment Type:FM New Patient - Adult Future Scheduled Tests Laboratory* CBC w/ Auto Diff 02/08/24 * Comprehensive Metabolic Panel 02/08/24 * Thyroid Stimulating Hormone 02/08/24 * Free T4 02/08/24 [facility] Evaluation note* Diagnosis Well woman exam with routine gynecological exam Routine gynecological examination [facility] Diagnosis Family history of autism Family history of psychiatric condition [facility] Diagnosis Missed menses , unspecified gestational age Encounter for supervision of normal first in first trimester Nonintractable headache, unspecified chronicity pattern, unspecified headache type documented in this encounter [facility]* Diagnosis 13 weeks gestation of (HHS-HCC) Second trimester (HHS-HCC) state, incidental Thyroid disease Unspecified disorder of thyroid History of prior with IUGR Diabetes mellitus screening Screening for diabetes mellitus documented in this encounter [facility]* Diagnosis Thyroid disease affecting - Primary History of prior with IUGR documented [facility]* Diagnosis Second trimester (HHS-HCC) state, incidental 17 weeks gestation of (HHS-HCC) documented in this encounter [facility]* Diagnosis 20 weeks gestation [...] rupture of membranes documented in this encounter [facility]* Diagnosis 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 trimester- Primary History of prior with IUGR History of premature rupture of membranes documented in this encounter [facility]* Diagnosis Hypothyroidism, unspecified type- Primary Second trimester (HHS-HCC) state, incidental 21 weeks gestation of (HHS-HCC) Vaginal discharge Leukorrhea, not specified as infective STD exposure documented in this encounter [facility]* Diagnosis Size of fetus inconsistent with dates in second trimester (HHS-HCC)- Primary Second trimester (HHS-HCC) state, incidental 25 weeks gestation of (HHS-HCC) Diabetes mellitus screening Screening for diabetes mellitus documented in this encounter [facility]* Diagnosis Third trimester (HHS-HCC) state, incidental 28 weeks gestation of (HHS-HCC) documented in this encounter [facility]* Diagnosis Third trimester (HHS-HCC) state, incidental 30 weeks gestation of (HHS-HCC) documented in this encounter [facility]* Diagnosis Third trimester (HHS-HCC) state, incidental 32 weeks gestation of (HHS-HCC) Thyroid disease Unspecified disorder of thyroid History of prior with IUGR Hypothyroidism, unspecified type [facility] No data available for this section [facility] filed[facility]ed in [facility] encounter [facility] [...] InactivatedComments04/21/2021 7:00 PM2 1:57 PMDate Activated Date ZulzrhaghopMrgwadii20/14/2021 5:01 PM03/26/2021 7:46 PMDate ActivatedDate InactivatedComments05/30/2021 7:15 AM06/01/2021 2:55 PMDate ActivatedDate InactivatedComments05/12/2021 1:10 PM2 2:16 PMDate ActivatedDate InactivatedComments04/21/2021 7:00 PM2 1:57 PMDate ActivatedDate QbgmtahtnqrDbebhudv58/14/2021 5:01 PM03/26/2021 7:46 PM Additional Source Comments INFORMATION SOURCE (unrecogn ized section and content) DATE CREATED AUTHOR 11/15/2021 [facility] DATE CREATED AUTHOR AUTHOR'S ORGANIZ ATION 09/09/2023 [facility] DATE CREATED AUTHOR AUTHOR'S ORGANIZ ATION 05/21/2024 [facility] DATE CREATED AUTHOR AUTHOR'S ORGANIZ ATION 07/06/2024 [facility] DATE CREATED AUTHOR AUTHOR'S ORGANIZ ATION 07/10/2024 [facility] DATE CREATED AUTHOR AUTHOR'S ORGANIZ ATION 07/13/2024 [facility] DATE CREATED AUTHOR AUTHOR'S ORGANIZ ATION 11/21/2024 [facility] DATE CREATED AUTHOR AUTHOR'S ORGANIZ ATION 12/12/2024 [facility] DATE CREATED AUTHOR AUTHOR'S ORGANIZ ATION 01/28/2025 [facility] EPIC Patient Care team informatio n (unrecognized section and content) Team MemberRelationshipSpecialtyStart DateEnd Date Staci White MD [address] [place] [address] PCP - GeneralInternal Medicine11/29/22Team MemberRelationshipSpecialtyStart Date End Date Staci White MD [address] [place] [address] PCP - GeneralInternal Medicine11/29/22Team MemberRelationshipSpecialtyStart Date End Date Staci White MD [address] [place] [address] PCP - GeneralInternal Medicine11/29/22Team MemberRelationshipSpecialtyStart Date End [place] [address] Attending ProviderMedical Clinical Genetics05/14/24Team MemberRelationship SpecialtyStart DateEnd Date Staci White MD [address] [place], [place] [address] PCP - GeneralInternal Medicine11/29/22am MemberRelationshipSpecialtyStart Date End Date Staci White MD [address] [place] [address] PCP - GeneralInternal Medicine11/29/22am MemberRelationshipSpecialtyStart Date End Date Staci White MD [address] [place] [address] PCP - GeneralInternal Medicine11/29/22am MemberRelationshipSpecialtyStart Date End Date Staci White MD [address] [place] [address] PCP - GeneralInternal Medicine11/29/22am MemberRelationshipSpecialtyStart Date End Date Staci White MD PCP - GeneralInternal Medicine04/07/21am MemberRelationshipSpecialtyStart Date End Date Staci White MD [address] [place] [address] PCP - GeneralInternal Medicine11/29/22am MemberRelationshipSpecialtyStart Date End Date Staci White MD PCP - GeneralInternal Medicine04/07/21am MemberRelationshipSpecialtyStart Date End Date Staci White MD PCP - GeneralInternal Medicine04/07/21Te MemberRelationshipSpecialtyStart Date End Date Staci White MD [address] [place] [address] [facility] - [facility]11/29/22Te MemberRelationshipSpecialtyStart Date End Date Staci White MD [address] [place] [address] PCP - GeneralInternal [facility]11/29/22Te MemberRelationshipSpecialtyStart Date End Date Staci White MD [address] [place] [address] [facility]11/29/22Te MemberRelationshipSpecialtyStart Date End Date Staci White MD [address] [place] [address] [facility]11/29/22Te MemberRelationshipSpecialtyStart Date End Date Staci White MD [address] [place] [address] PCP - [facility] Hospitalnal [facility]11/29/22 Reason for Visit (unrecogniz ed section and [...] BE BASED ON THE PRIMARY CLINICAL RECORDS. [facility] [employer] [facility]. provides no warranty or guarantee of the accuracy or completeness of information in this document.
--- NOTE | 2025-02-12 16:49 | PM.OBHP ---
OB - H&P: HPI History of Present Illness Chief complaint: ON ORDER BPP/NST : 2 Para: 1 Gestational age based on last menstrual period: 34 3/7wks Narrative: 24 yo at 34 3/7wks presented to l&d for nst and bpp, pt also had complaints of mild ctxns, denies lof, vb, neg urinary symptoms, positive fm, pt has iugr with reverse flow, resulting in delivery at 35wks, pt also has ho of thyroid disease, pt had bpp 8/8, cephalic presentation, nst reactive, sve 3-4/70/-2, ctxns g2-4min History of Present Dating criteria: LMP confirmed by 1st trimester US care: good care Ultrasounds: normal 1st trimester US and normal mid trimester US complications comment: contractions Medical complications OB: none Labs Blood type: A (+) positive Rubella: immune RPR/VDLR: nonreactive GBS status: negative HBsAG: negative Review of Systems ROS Status of ROS: 10 or more systems reviewed and unremarkable except as noted in history and below Exam Constitutional Vital Signs, click to edit/add: Last Vital Signs Pulse 95 H 02/12/25 15:17 BP 118/57 02/12/25 15:17 Documenting provider has reviewed patient's vital signs: yes Common normals: no apparent distress Respiratory Common normals: normal respiratory effort and clear to auscultation bilaterally Cardio Common normals: regular rate and regular rhythm GI Common normals: Normal to inspection, nondistended, normoactive bowel sounds present Extremity Common normals: no clubbing, cyanosis or edema and no calf tenderness OB - A/P Assessment and Plan (1) Intrauterine : (2) contractions: (3) Hypothyroidism: Assessment and Plan: iv, routine labs, cont efm, iv abx, celestone given, discussed with [facility], agree to transport
[2025-02-12 16:59] LABS: Hematocrit 30.7 % (36.0-48.0); Hemoglobin 10.0 g/dL (12.0-16.0); Immature Granulocytes Abs Auto 0.04 10^3/uL (0.00-0.03); Immature Granulocytes Pct Auto 0.4 % (0.0-0.5); Lymphocytes Absolute Auto 1.6 10^3/uL (1.2-3.8); Mean Corpuscular HGB Conc 32.6 g/dL (29.9-35.2); Mean Corpuscular Hemoglobin 30.5 pg (26.7-34.0); Mean Corpuscular Volume 93.6 fL (81.0-99.0); Platelet Count 201 10^3/uL (150-450); Red Blood Count 3.28 10^6/uL (4.20-5.40); White Blood Count 9.8 10^3/uL (4.0-11.0)
[2025-02-12 17:01] LABS: Glucose Urine UA 250 mg/dL (NEGATIVE)
[2025-02-12] MEDS: 0.9 % SODIUM CHLORIDE 1,000 ML 125 ML IV (17:20)
[2025-02-12] MEDS: AMPICILLIN SODIUM 2,000 MG in 0.9 % SODIUM CHLORIDE 100 ML 200 MG IV ×2 (17:20→21:07)
[2025-02-12 17:24] LABS: Cast Seen? NONE SEEN #/LPF (NONE SEEN); Crystals Seen? None Seen #/HPF (None Seen)
[2025-02-12 17:25] LABS: Cannabinoid Screen Urine NEGATIVE (NEGATIVE); Methamphetamines Screen Urine NEGATIVE (NEGATIVE); Tricyclic Antidepressant Urine NEGATIVE (NEGATIVE)
[2025-02-13] VITALS: BP 122/80; PULSE 72
[2025-02-13] MEDS: 0.9 % SODIUM CHLORIDE 1,000 ML 125 ML IV ×2 (01:22→09:11)
--- NOTE | 2025-02-13 07:47 | P.OBPN_ITS ---
OB - PN: Subj Subjective Patient comments: no complaints and pain well controlled status: doing well Narrative: occasional ctxns, sve unchanged, denies lof vb, denies urinary symptoms Exam Constitutional Vital Signs, click to edit/add: Last Vital Signs Temp 97.8 F 02/12/25 15:18 Pulse 72 02/13/25 00:00 Resp 18 02/12/25 15:18 BP 122/80 02/13/25 00:00 O2 Del Method Room Air 02/12/25 15:18 Documenting provider has reviewed patient's vital signs: yes Common normals: no apparent distress Respiratory Common normals: normal respiratory effort and clear to auscultation bilaterally Cardio Common normals: regular rate and regular rhythm GI Common normals: Normal to inspection, nondistended, normoactive bowel sounds present Extremity Common normals: normal to inspection and no clubbing, cyanosis or edema Results Labs Labs: Short CBC 02/12/25 Range/Units 16:15 WBC 9.8 (4.0-11.0) 10^3/uL Hgb 10.0 L (12.0-16.0) g/dL Hct 30.7 L (36.0-48.0) % Plt Count 201 (150-450) 10^3/uL Urine 02/12/25 Range/Units 16:00 Urine Color Lt. yellow (YELLOW) Urine Clarity Clear (CLEAR) Urine pH 6.5 (5.0-9.0) Ur Specific [place] 1.010 (1.005-1.025) Urine Protein Negative (NEG/TRACE) mg/dL Urine Glucose (UA) 250 A (NEGATIVE) mg/dL OB - PN: A/P Assessment and Plan (1) Intrauterine : (2) contractions: Assessment and Plan: dc home later today after 2nd dose of steriod, ptc given, take off work until 36wks (3) Hypothyroidism: Time Spent with Patient Time: Total time spent is greater than 50% in coordination of care (as documented) at patient's floor/unit and/or counseling patient: Total time spent with greater than 50% in coordination of care (as documented) at patient's floor/unit and/or counseling patient: less than 15 minutes
[2025-02-13 09:10] VITALS: TEMP 36.7
[2025-02-13 09:11] VITALS: BP 102/55; PULSE 94
[2025-02-13 15:30] VITALS: BP 118/63; PULSE 125
[2025-02-13] MEDS: BETAMETHASONE ACE/BETAMETHASONE SOD PHOS 30 MG/5 ML 12 MG IM (15:32)
== END 2025-02-13 15:41 | disposition home or self-care (01) ==
LOC: US 16:00 → FBC 16:00
PROVIDERS: Admitting Provider Obstetrics & Gynecology; Visit Provider Obstetrics & Gynecology
DX: O60.03 Preterm labor without delivery, third trimester (principal); O99.283 Endocrine, nutritional and metabolic diseases complicating pregnancy, third trimester; E03.9 Hypothyroidism, unspecified; Z3A.34 34 weeks gestation of pregnancy
CPT/HCPCS: 36415; 76818; 80307; 81001; 85025; 86850; 86900; 86901; 96365; 96372; G0378; G0379; J0290; J0702

== ENCOUNTER 2025-02-15 19:15 | Observation (INO) | payer BC, SELFPAY ==
--- OUTSIDE RECORDS SUMMARY | 2025-02-04 08:00 | XMS_ITS | Encounter Summary ---
Author Organization [facility] Address [address] [place] [address] Care Team Providers Care Semiconductor Processing Technician Name Role Phone Carrillo White MD Primary Care Provider [phone] Encounter Details DateTypeDepartmentCare Team (Latest Contact Info)Kaczvkjzlro38/17/2025 8:00 AM ESTAncillary Procedure [facility] [address] [place] [address] [place] [address] Thyroid disease; History of prior with IUGR ; Hypothyroidism, unspecified type Social History Tobacco UseTypesPacks/DayYears UsedDateSmoking Tobacco: NeverAlcohol UseStandard Drinks/WeekCommentsYes0 (1 standard drink = 0.6 oz pure alcohol)occasional alcohol useEstimated Date of BrycmbwlKdcfqkviYkv17/03/2026Based on last menstrual period of 06/16/2024Sex and Gender InformationValueDate RecordedSex Assigned at BirthNot on fileLegal AfwPtxcnm42/15/2023 10:14 PM EDTGender IdentityNot on fileSexual OrientationNot on filedocumented as of this encounter Plan of Treatment Not on file documented as of this encounter Procedures Procedure NamePriorityDate/TimeAssociated DiagnosisCommentsUS OB FOLLOW UP TRANSABDOMINAL WLKMFXAWYsdqcee92/17/2025 8:26 AM EST Thyroid disease History of [...] 2025. ?? The current estimated weight is 2020 grams (4 pounds, 7 ounces). ?? Procedure [...] of March. The current estimated weight is 2020 grams (4 pounds, 7ounces). IMPRESSION: Single, live intrauterine , current sonographic age of 32 weeksand 0 days, with an estimated date of delivery of April 01, 2025 (priorEDD March 27, 2025). * Estimated Weight (g) by Percentile is based upon an accurateestimated age based on last menstrual period. TRANSCRIBED BY: ELECTRONICALLY SIGNED BY: Hermelindo Padilla MD Authorizing ProviderResult TypeResult StatusAbril Stone NPIMG OB US PROCEDURESFinal Result documented in this encounter Visit Diagnoses Diagnosis Thyroid disease Unspecified disorder of thyroid History of prior with IUGR Hypothyroidism, unspecified type documented in this encounter Care Teams Team MemberRelationshipSpecialtyStart DateEnd Date Carrillo White MD [address] [place] [address] PCP - GeneralInternal Medicine11/29/22documented as of this encounter
--- OUTSIDE RECORDS SUMMARY | 2025-02-15 18:01 | XMS_ITS | Clinical Summary ---
Author Organization [facility] [place] [address] Care Team Providers Care Pot Puncher Name Role Phone Carmita Jurado MD Unavailable [phone] Social History Tobacco UseTypesPacks/DayYears UsedDateSmoking Tobacco: Never Assessed CommentsUnknownSex and Gender InformationValueDate RecordedSex Assigned at Not on fileLegal AoaJipkwl79/24/2025 11:11 AM ESTGender IdentityNot on file Sexual [...] Td or Tdap), 06/22/2010, 10/16/2003, Additional history utnmhvEIREbjgzokrq64/28/2004, 01/26/19998754BcoVZYWOiieoieyl35/27/2016, 06/22/2010HIBAged OutNo longer eligible based on patient's age to complete this topicNirsevimabAged OutNo longer eligible based on patient's age to complete this topicPneumococcalAged OutNo longer eligible based on patient's age to complete this topicRotavirusAged OutNo longer eligible based on patient's age to complete this topic Insurance Care Teams Team MemberRelationshipSpecialtyStart DateEnd [place] [address] Attending ProviderMedical Clinical Genetics05/14/24
--- OUTSIDE RECORDS SUMMARY | 2025-02-15 18:01 | XMS_ITS | Clinical Summary ---
Author Organization [facility] Address [id number] [address] [place] [address] Care Team Providers Care Pelt Grader Name Role Phone Carrillo White MD Primary Care Provider [phone] Allergies No known active allergies Medications MedicationSigDispense QuantityRefillsLast FilledStart DateEnd DateStatus PNV no.95/ferrous fum/folic ac ( ORAL) Take by mouth in the morning.Active FREESTYLE LITE METER kit See Admin Instructions.03/26/2021ctive freestyle 28 gauge lancets Use daily as directed & as besbvv7603/26/2021ctive acetaminophen (TYLENOL EXTRA STRENGTH) 500 mg tablet [...] the morning.Active Active Problems ProblemNoted DateDiagnosed DateLow-lying uagarefs99/18/2025History of prior with IUGR bzhlncy1211/05/2024Family history of bmsniv1411/05/2024History of gestational diabetes in prior , currently otnhjzhp32/18/2025History of prior with short cervix, currently imtqpsqe68/18/2025History of premature rupture of pgshqyrqx05/18/2025Hypothyroidism affecting zivucwmhw48/18/2021 Overview (05/19/2021): 03/03/21 TSH 1.91 04/11 TSH not completed () On levothyroxine 125mcg Estimated Date of SoajsswvZmrmfnppJhi06/03/2026ased on last menstrual period of 06/16/2024 Resolved Problems ProblemNoted DateDiagnosed DateResolved DatePreterm premature rupture of dhdmspcya66Diet controlled gestational diabetes mellitus (GDM) in third eycddvjew55Short cervix during in third menbbmbbe19 Overview (05/19/2021): Vaginal progesterone ANCS 03/03/21 and 03/04/21, rescue 05/12/21 and 05/13/21. laborPreterm uterine contractions in third trimester, kkyefazzul64Pregnancy affected by growth nzjgfyevcoc48 Overview (05/19/2021): 05/05/21: EFW 3%, AC 8%, nl DVP. Normal dopplers Encounters DateTypeDepartmentCare JimlAkkacogratj27/23/2025 2:15 PM EDT - 12/11/2024 11:59 PM EDTHospital Encounter [facility] - [facility] [address] [place] [address] 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 trimester; History of prior with IUGR ; History of premature rupture of membranes Discharge Disposition: Home12/11/20247116Qylvwr98/09/2025 3:15 PM EDT - 11/27/2024 11:59 PM EDTHospital Encounter [facility] - Ultrasound [address] [place] [address] 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 trimester; History of prior with IUGR ; History of premature rupture of membranes Discharge Disposition: Home11/27/20246190Tffydw22/02/2025 3:45 PM EDT - 11/20/2024 11:59 PM EDTHospital Encounter [facility] Imaging [address] [place] [address] 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 trimester; History of prior with IUGR ; History of premature rupture of membranes Discharge Disposition: Home11/20/2024Travelfrom Last 3 Months Immunizations ImmunizationAdministration DatesNext FcaJahl2205/26/2021 Family History Medical HistoryRelationNameCommentsDiabetesBrotherJordanDiabetesFather HypertensionFatherColon cancerMaternal GrandmotherEllenDiabetesMaternal GrandmotherEllenHypertensionMaternal GrandmotherEllenDepressionMotherTina DiabetesMotherTinaMental illnessMotherTinaStomach cancerMotherTinaBreast cancer Paternal Aunt 1SueMiscarriages / StillbirthsPaternal Aunt 2AuntAsthmaPaternal GrandfatherRichardDiabetesPaternal GrandfatherRichardHypertensionPaternal GrandfatherRichardBreast cancerPaternal GrandmotherMarilynColon cancerPaternal GrandmotherMarilynRelationNameStatusCommentsBrotherJordanFatherMaternal GrandmotherEllenMotherTinaDeceasedPaternal Aunt 1SuePaternal Aunt 2AuntPaternal GrandfatherRichardPaternal GrandmotherMarilyn Social History Tobacco UseTypesPacks/DayYears UsedDateSmoking Tobacco: NeverSmokeless Tobacco: NeverAlcohol UseStandard Drinks/WeekCommentsNot Currently0 (1 standard drink = 0.6 oz pure alcohol)[place] Depression ScaleAnswerDate Recorded [place] Depression Scale Hmmlj61806/04/2021The thought of harming myself has occurred to me.Never06/04/2021Hunger ScreeningAnswerDate Recorded Within the past 12 months we worried whether our food would run out before we got money to buy more.Never True11/05/2024Within the past 12 months the food we bought just didn't last and we didn't have money to get more.Never True 11/05/2024Estimated Date of ZsxwklvbLvhiobaeRzr92/03/2026Based on last menstrual period of 06/16/2024Sex and Gender InformationValueDate RecordedSex Assigned at BirthNot on fileLegal XhlYhqext12/15/2021 10:50 AM EDTGender IdentityNot on fileSexual OrientationNot on file Last Filed Vital Signs Vital SignReadingTime TakenCommentsBlood Kmtakafi75/5808 11:51 AM EDT Wvvjp719411/05/2024 11:51 AM GNVPclxvvmdieu62.9 ??C (98.4 ??F)06/04/2021 11:19 AM EDTRespiratory Wijf161606/01/2021 9:10 AM EDTOxygen Spiveqcyxk33%05/19/2021 10:27 AM ESTInhaled Oxygen Concentration--Qvypsj05.8 kg (138 lb 6.4 oz)11/05/2024 11:51 AM IWTJfdeey314.1 cm (5' 5 )11/05/2024 11:51 AM EDTBody Mass Index23.03 11/05/2024 11:51 AM EDT Plan of Treatment Health MaintenanceDue DateLast DoneCommentsPap Smear2019Depression Kmrjfgsnt46/Influenza Ylepffd61/02/2009RSV ( or age 60+ yrs) (1 - Risk 1-dose series)01/26/2025dult BMI Screening Tobacco Kbphuwzhv73DTaP,Tdap and Td Vaccines (8 - Td or Tdap)/10/2021, 06/22/2010, 10/16/2003, Additional history exists Medical Devices Not on file Procedures Procedure NamePriorityDate/TimeAssociated DiagnosisCommentsUS MFM OB FOLLOW-UP, 1 VFIVLRpkagir10/23/2025 3:04 PM EDT 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 trimester History of prior with IUGR History of premature rupture of membranes US MFM OB WWYKKOKZBZHXPrqmldb64/09/2025 3:49 PM EDT 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 trimester History of prior with IUGR History of premature rupture of membranes US MFM OB AUNYWLYUNBTSMxrerfz24/02/2025 4:16 PM EDT 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 [...] MILLAN : 2000 SEX: F Accession Number: [id number] ORDERING PHYSICIAN: ANTOINETTE BLAKELY REFERRING PHYSICIAN: SHAUNA NAIR Coding Procedures ? 99020: Ultrasound, uterus, real time with image documentation, follow up,transabdominal ? approach per fetus Indication Screening for follow-up survey, History of prior with gestational diabetes, History of prior with IUGR, History of prior with delivery, Hypothyroidism. History OB History ? 2. Para 1 ? R4Z5U9K8 Current Cell free DNA ?low risk analysis [...] (oz) ? 11 oz EFW by: ?Hadlock (IYO-RE-OD-FL) Extended Tibia ??40.0 mm 25w 2d 39% Joanie Pension Agent ? 2.9 mm CM ? 6.9 mm [...] view. RVOT view. LVOT view. 3-vessel view. 7-ezbojk-zhhrrnc view. Situs. Aortic arch view. ? Bicaval [...] MVP measures 5 cm. Recommendations Please see [facility] recommendations from prior clinical and/or ultrasound report documentation. Subsequent follow up or other follow up as clinically determined by primary OB provider unless otherwise specified by [facility]. Results forwarded to ordering provider so they can follow up with the patient as necessary. Procedure Note Antoinette Blakely MD - 12/12/2024 NAME: KERRY MILLAN : 2000 SEX: F Accession Number: [id number] ORDERING PHYSICIAN: ANTOINETTE BLAKELY REFERRING PHYSICIAN: SHAUNA NAIR Coding Procedures 45593: Ultrasound, uterus, real time with image documentation, follow up, transabdominal approach per fetus Indication Screening for follow-up survey, History of prior withgestational diabetes, History of prior with IUGR, History of prior with delivery, Hypothyroidism. History OB History 2. Para 1 Y4K4V5W2 Current Cell free DNA low risk analysis [...] EFW (oz) 11 oz EFW by: Hadlock (DBG-XA-BR-FL) Extended Tibia 40.0 mm 25w 2d 39% Joanie Pension Agent 2.9 mm CM 6.9 mm 70% Nicolaides [...] view. RVOT view. LVOT view. 3-vessel view. 7-setgws-vjtauwj view. Situs. Aortic arch view. Bicaval view. [...] MVP measures 5 cm. Recommendations Please see [facility] recommendations from prior clinical and/or ultrasoundreport documentation. [...] 1:57 PM * Full Code Date ActivatedDate YxbhehzrbvdShkxyjux94/14/2021 5:01 PM03/26/2021 7:46 PM Care Teams Team MemberRelationshipSpecialtyStart DateEnd Date Carrillo White MD PCP - GeneralInternal Medicine04/07/21
--- OUTSIDE RECORDS SUMMARY | 2025-02-15 18:01 | XMS_ITS | Encounter Summary ---
Author Organization [facility] Address [address] [place] [address] Care Team Providers Care Compact Assembler Name Role Phone Carrillo White MD Primary Care Provider [phone] Encounter Details DateTypeDepartmentCare Team (Latest Contact Info)Gnpnsoeswtm05/18/2025linisync Result Encounter [facility] Unsolicited Abril Stone, YADI [address] [place] [address] [place] [address] Social History Tobacco UseTypesPacks/DayYears UsedDateSmoking Tobacco: NeverAlcohol UseStandard Drinks/WeekCommentsYes0 (1 standard drink = 0.6 oz pure alcohol)occasional alcohol useEstimated Date of GpachbgrXhpnetieWul20/03/2026Based on last menstrual period of 06/16/2024Sex and Gender InformationValueDate RecordedSex Assigned at BirthNot on fileLegal KknXyeipb42/15/2023 10:14 PM EDTGender IdentityNot on fileSexual OrientationNot on filedocumented as of this encounter Plan of Treatment Not on file documented as of this encounter Procedures Procedure NamePriorityDate/TimeAssociated DiagnosisCommentsALL THYROID STIM UVPGATWJgfkyni13/18/2025 2:42 PM EST documented in this encounter Results * ALL THYROID STIM HORMONE (02/05/2025 2:42 PM EST)ComponentValueRef RangeTest MethodAnalysis TimePerformed AtPathologist SignatureTHYROID STIMULATING HORMONE1.3280.358 - 3.740 uIU/mLTBHSpecimen (Source)Anatomical Location / LateralityCollection Method / VolumeCollection TimeReceived Time02/05/2025 2:42 PM EST02/05/2025 2:44 PM EST Narrative [facility] - 02/05/2025 3:43 PM EST Authorizing ProviderResult TypeResult StatusKristina Bertha NPCLINISYNCFinal ResultPerforming OrganizationAddressCity/State/ZIP CodePhone Number [facility] documented in this encounter Visit Diagnoses Not on filedocumented in this encounter Care Teams Team MemberRelationshipSpecialtyStart DateEnd Date Carrillo White MD [address] [place] [address] PCP - GeneralInternal Medicine11/29/22documented as of this encounter
--- OUTSIDE RECORDS SUMMARY | 2025-02-15 18:01 | XMS_ITS | Encounter Summary ---
Author Organization [facility] Address [address] [place] [address] Care Team Providers Care Cattle Tester Name Role Phone Carrlilo White MD Primary Care Provider [phone] Encounter Details DateTypeDepartmentCare Team (Latest Contact Info)Ebaiwubhyha79/25/2025linisync Result Encounter [facility] Unsolicited Shauna Marshall, DO [address] [place] [address] Social History Tobacco UseTypesPacks/DayYears UsedDateSmoking Tobacco: NeverAlcohol UseStandard Drinks/WeekCommentsYes0 (1 standard drink = 0.6 oz pure alcohol)occasional alcohol useEstimated Date of DglprxtuHepofsmiOhg90/03/2026Based on last menstrual period of 06/16/2024Sex and Gender InformationValueDate RecordedSex Assigned at BirthNot on fileLegal DbeCkkpoz11/15/2023 10:14 PM EDTGender IdentityNot on fileSexual OrientationNot on filedocumented as of this encounter Plan of Treatment Not on file documented as of this encounter Procedures Procedure NamePriorityDate/TimeAssociated DiagnosisCommentsUS OB BPP W NON-SIYBXJ3702/12/2025 8:46 PM EST documented in this encounter Results * US OB BPP W NON-STRESS (02/12/2025 8:46 PM EST)Anatomical Region LateralityModalityOtherSpecimen (Source)Anatomical Location / Laterality Collection Method / VolumeCollection TimeReceived Time02/12/2025 8:46 PM EST Narrative 02/12/2025 9:25 PM EST [facility] ?[address] ? [place], [facility] ? Ultrasound Report ? Signed ? Patient: KERRY,YANA R ?MR#: [id number] ?? : 2000 ?Acct:[id number] ?? Age/Sex: 25 / F ?ADM Date: 02/12/25 ?? Loc: [facility] ??250-1 ? Attending Dr: Shauna Marshall D.O. ? Ordering Physician: Shauna Marshall D.O. ?? Date of Service: 02/12/25 ?? Procedure(s): US OB BPP w non-stress ?? Accession Number(s): [id number] ? cc: Shauna Marshall D.O.; Physician,Non-Staff Ravi ? [facility] ? [address] ? [place] [address] ? Patient Name: ?? YANA PAYNE ? MRN: [facility]:[id number] ? date: 2000 ?Sex: F ?? Assigned Patient Location: [facility] ?? Current Patient Location: [facility] ?? Accession/Order Number: [id number] ?? Exam Date: 02/12/2025 ??14:55 ?Report Date: 02/12/2025 ??20:46 ? At the request of: ?? SHAUNA ??JOANNA ??DO ? Procedure: ??US OB BPP w non-stress ? Ultrasound biophysical profile ? COMPARISON: 02/05/2025 ? INDICATION: Hypothyroidism ? FINDINGS IMPRESSION: Cephalic position. ?? heart rate 153 bpm. ??CALVIN 17.4 ?? cm. ??Biophysical profile score 8/8 ? Impression dictated by: Ramakrishna Santiago M.D. ??02/12/2025 8:46 PM ? Dictation Location: [facility]PC-29 ? Electronically authenticated by: [id number] ??Y ?? Date: 02/12/2025 ??20:46 ? Dictated By: ?Ramakrishna Santiago M.D. ? Signed By: ?02/12/252124 ? DD/ 45 ? TD/TT: ? Social Work Coordinator: Procedure Note Radiology, Radiologist, MD - 02/12/[address] [address] Ultrasound Report Signed Patient: YANA PAYNE RMR#: [id number] : 2000Acct:[id number] Age/Sex: 25 / FADM Date: 02/12/25 Loc: [facility] 250-[address]: Shauna Marshall D.O. Ordering Physician: Shauna Marshall D.O. Date of Service: 02/12/25 Procedure(s): US OB BPP w non-stress Accession Number(s): [id number] cc: Shauna Marshall D.O.; Physician,Non-Staff Ravi [place] [address] Patient Name: YANA PAYNE MRN: [id number] date: 2000 Sex: F Assigned Patient Location: [facility] Current Patient Location: [facility] Accession/Order Number: [id number] Exam Date: 02/12/2025 14:55 Report Date: 02/12/2025 20:46 At the request of: SHAUNA MARSHALL DO Procedure: US OB BPP w non-stress Ultrasound biophysical profile COMPARISON: 02/05/2025 INDICATION: Hypothyroidism FINDINGS IMPRESSION: Cephalic position. heart rate 153 bpm. AFI17.4 cm. Biophysical profile score 8/8 Impression dictated by: Ramakrishna Santiago M.D. 02/12/2025 8:46 PM Dictation Location: [place] [address] Electronically authenticated by: [id number] Y Date: 0:46 Dictated By: Ramakrishna Santiago M.D. Signed By:02/12/252124 DD/ 45 TD/TT: Social Work Coordinator: Authorizing ProviderResult TypeResult StatusCorey Joanna DOCLINISYNC IMAGINGFinal Result documented in this encounter Visit Diagnoses Not on filedocumented in this encounter Care Teams Team MemberRelationshipSpecialtyStart DateEnd Date Carrillo White MD [address] [place] [address] PCP - GeneralInternal Medicine11/29/22documented as of this encounter
--- OUTSIDE RECORDS SUMMARY | 2025-02-15 18:01 | XMS_ITS | CCD ---
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 Role Phone JOANNA, DR VILLATORO Admitting [...] KARASIK, DR ZIMMERMAN Attending Unavailable KARASIK, DR ZMIMERMAN Consulting Unavailable MISC, DR LAURA Primary Care [...] Primary Care Provider Carmita Jurado MD Unavailable [phone] CARMITA JURADO Referring Unavailable CARMITA JURADO Attending Unavailable Alba Thorntonbemonty Alexandre Primary Care Physician [phone] Marta Almanzar Attending Unavailable Marta Almanzar Admitting Unavailable Marta Almanzar Attending Unavailable Norberto, Ya L Admitting Unavailable Nancy Thorntonzabeth L Attending Unavailable Marta Almanzar Attending Unavailable Ham Robins Attending Unavailable Ham Robins Attending Unavailable Marta Almanzar Attending Unavailable Marta Almanzar Admitting Unavailable Unavailable Primary Care Provider UnavailStaci Kirk MD Primary Care Provider [phone] SANTOSH MARSHALL Referring Unavailable STACI WHITE Primary Care Unavailable JACKLYN CAMPOS Attending Unavailable SANTOSH MARSHALL Referring Unavailable STACI WHITE Primary Care Unavailable SANTOSH MARSHALL Referring Unavailable STACI WHITE Primary Care Unavailable SANTOSH MARSHALL Referring Unavailable STACI WHITE Primary Care Unavailable SANTOSH MARSHALL Referring Unavailable STACI WHITE Primary Care Unavailable Staci White MD Primary Care Provider [phone] SANTOSH MARSHALL Attending Unavailable ERUM GUIDRY Attending Unavailable SANTOSH MARSHALL Attending Unavailable ERUM GUIDRY Attending Unavailable SANTOSH MARSHALL Attending Unavailable SANTOSH MARSHALL Attending Unavailable SANTOSH MARSHALL Attending Unavailable Medications Current Medications MedicationDrug Class(es)DatesSig (Normalized)Sig (Original)acetaminophen 500 mg oral tablet (3 sources)Start: 58-81-4377amac 2 tablets by mouth every eight hours [...] oral capsule (2 sources)Cephalosporin AntibacterialStart: 03-09-2023 End: 02-30-5166fkyn 1 capsule by mouth four times dailyKeflex 500 mg Cap 500 mg = 1 cap(s), Oral, QID, X 7 day(s), # 28 cap(s), Refills(s) 0, Pharmacy: [facility], 166, cm, 03/09/23 7:33:00 EST, Height/Length Dosing, 58.7, kg, 03/09/23 7:33:00 EST, Weight Dosing Start Date: 03/09/23 Stop Date: 03/16/23 Status: OrderedColace (3 sources)Start: 15-22-0081Gkfqcs Refills(s) 0 Start Date: 11/30/22 Status: OrderedStart: 06-01-2021 End: 82-61-7704pqpe 1 capsule by mouth in the morning, then take 1 capsule by mouth at bedtimedocusate sodium (COLACE) 100 mg capsule Take 1 capsule (100 mg total) by mouth in the morning and 1capsule (100 mg total) before bedtime. 10 capsule 06/01/2021 11/05/2024 Discontinued (Therapy completed)Flonase (3 sources)CorticosteroidStart: 45-17-9517Qyzzzlv Nasal, Daily, Refill(s) 0 Start Date: 09/10/18 Status: OrderedFREESTYLE LITE METER kit (3 sources)Start: 80-95-9005YVNIIAMJJ LITE METER kit See Admin Instructions. 03/26/2021 Activehydrocortisone acetate 0.025 mg/mg / lidocaine hydrochloride 0.03 mg/mg rectal gel (2 sources)Antiarrhythmic, Corticosteroid, Amide Local AnestheticStart: 28-17-9419wrddtleyofeypn-lidocaine 2.5%-3% rectal gel with applicator 1 carmen, Rectal, BID, 60 EA, Refill(s) 1,[facility][id number], 166, cm, 11/11/22 9:28:00 EDT, Height/Length Dosing, 59.4, kg, 11/11/22 9:28:00 EDT, Weight Dosing Start Date: 11/19/22 Status: OrderedStart: 61-65-7036bjjldtogahpsde-lidocaine 2.5%-3% rectal gel with applicator 1 carmen, Rectal, BID, 60 EA, Refill(s) 1,[facility], 166, cm, 11/11/22 9:28:00 EDT, Height/Length Dosing, 59.4, kg, 11/11/22 9:28:00 EDT, Weight Dosing Start Date: 11/11/22 Status: Orderedlevothyroxine sodium 0.125 mg oral tablet (20 sources)l-ThyroxineStart: 09-17-2024 End: 03-06-9828ygif 1 tablet by mouth before mealtimelevothyroxine (Synthroid) 125 MCG tablet Indications: Thyroid disease Take 1 tablet (125 mcg) by mouth in the morning. Take before meals. 30 tablet 11 09/17/2024 09/17/2025 ActiveStart: 08-22-2024 End: 80-25-2077rtbq 1 tablet by mouth before mealtimelevothyroxine (Synthroid) 25 MCG tablet Indications: Thyroid disease Take 1 tablet (25 mcg) by mouth in the morning. Take before meals. 30 tablet 11 08/22/2024 10/15/2024 Discontinued Start: 89-89-0112ffgr 1 tablet by mouth once dailySynthroid 100 mcg Tab 100 mcg = 1 tab(s), Oral, Daily, # 90 tab(s), Refills(s) 0, Pharmacy: [facility], 166, cm, 08/08/23 15:44:00 EDT, Height/Length Dosing, 56.1, kg, 08/08/23 15:51:00 EDT, Weight Dosing Start Date: 06/19/24 Status: Ordered Quantity: 90.0 Unit: tab(s) Repeat number: 1Start: 06-19-2024 End: 66-26-8915hhez 1 tablet by mouth once dailylevothyroxine (Synthroid, Levoxyl) 100 MCG tablet Take 100 mcg by mouth Daily 06/19/2024 10/15/2024 DiscontinuedStart: 04-07-0625nkch 1 tablet by mouth once dailySynthroid 100 mcg Tab 100 mcg = 1 tab(s), Oral, Daily, # 90 tab(s), Refills(s) 1, Pharmacy: [facility], 166, cm, 05/16/23 14:25:00 EST, Height/Length Dosing, 56.7, kg, 05/16/23 14:25:00 EST, Weight Dosing Start Date: 05/16/23 Status: OrderedStart: 59-32-9209hnyl 1 tablet by mouth once dailySynthroid 112 mcg Tab 112 mcg = 1 tab(s), Oral, Daily, # 60 tab(s), Refills(s) 0, Pharmacy: [facility], 166, cm, 11/30/22 12:12:00 EDT, Height/Length Dosing, 58.8, kg, 11/30/22 12:12:00 EDT, Weight Dosing Start Date: 02/07/23 Status: OrderedStart: 70-72-1284ciod 1 tablet by mouth once dailySynthroid 112 mcg Tab 112 mcg = 1 tab(s), Oral, Daily, # 60 tab(s), Refills(s) 0, Pharmacy: [facility], 166, cm, 10/08/22 15:10:00 EDT, Height/Length Dosing, 57.8, kg, 10/08/22 15:10:00 EDT, Weight Dosing Start Date: 10/08/22 Status: OrderedStart: 10-08-2022 End: 74-17-9558hzwn 1 tablet by mouth in the morninglevothyroxine (Synthroid, Levoxyl) 112 MCG tablet Take 112 mcg by mouth in the morning. 10/08/2022 0 08/17/2024 DiscontinuedStart: 67-84-2847hoiy 1 tablet by mouth once daily levothyroxine 125 mcg (0.125 mg) Tab 125 mcg = 1 tab(s), Oral, Daily, # 90 tab(s), Refills(s) 3, Pharmacy: [facility], 166, cm, 05/03/22 14:21:00 EST, Height/Length Dosing, 61.2, kg, 05/03/22 14:21:00 EST, Weight Dosing Start Date: 05/03/22 Status: Orderedlevothyroxine (SYNTHROID, LEVOTHROID) 100 MCG tablet Take 125 mcg by mouth in the morning. Activeloratadine 10 mg oral tablet (13 sources)Start: 43-93-1729sffe 1 tablet by mouth once dailyClaritin 10 mg Tab 10 mg, Oral, Daily, # 10 tab(s), Refills(s) 0, Pharmacy: [facility], 166, cm, 12/05/19 13:03:00 EDT, Height/Length Dosing, 61.6, kg, 12/05/19 13:03:00 EDT, Weight Dosing Start Date: 12/05/19 Status: Ordered Quantity: 10.0 Unit: tab(s) Repeat number: 1magnesium oxide 400 mg oral tablet (5 sources)Start: 08-17-2024 End: 59-61-7656eowx 1 tablet by mouth once dailymagnesium oxide (Mag-Ox) 400 MG tablet Indications: Nonintractable headache, unspecified chronicitypattern, unspecified headache type Take 1 tablet (400 mg) by mouth Daily 30 tablet 6 08/17/2024 09/16/2024 Activephenazopyridine hydrochloride 200 mg oral tablet (4 sources)Start: 03-09-2023 End: 65-40-8998rrnn 1 tablet by mouth three times dailyPyridium 200 mg Tab 200 mg = 1 tab(s), Oral, TID, X 3 day(s), # 9 tab(s), Refills(s) 0, Pharmacy: [facility], 166, cm, 03/09/23 7:33:00 EST, Height/Length Dosing, 58.7, kg, 03/09/23 7:33:00 EST, Weight Dosing Start Date: 03/09/23 Stop Date: 03/12/23 Status: OrderedStart: 02-21-2023 End: 91-83-3363kpzh 1 tablet by mouth three times dailyPyridium 200 mg Tab 200 mg = 1 tab(s), Oral, TID, X 3 day(s), # 9 tab(s), Refills(s) 0, Pharmacy: [facility], 166, cm, 02/21/23 13:06:00 EST, Height/Length Dosing, 58.6, kg, 02/21/23 13:06:00 EST, Weight Dosing Start Date: 02/21/23 Stop Date: 02/24/23 Status: OrderedPNV no.95/ferrous fum/folic ac ( ORAL) (3 sources)PNV no.95/ferrous fum/folic ac ( ORAL) Take by mouth in the morning. ActivePNV no.95/ferrous fum/folic ac ( ORAL) Take by mouth daily. Activepolyethylene glycol 3350 150508 mg / potassium chloride 1480 mg / sodium bicarbonate 5720 mg / sodium chloride 61520 mg powder for oral solution (11 sources)Osmotic LaxativeStart: 26-15-1863FtYUFYJG Paige oral powder for reconstitution See Instructions, 1 EA, Refill(s) 0, Prior to colonoscopy., [id number], 166, cm, 11/30/22 12:12:00 EDT, Height/Length Dosing, 58.8, kg, 11/30/22 12:12:00 EDT, Weight Dosing Start Date: 11/30/22 Status: Ordered Quantity: 1.0 Unit: EA Repeat number: 1Prenatal MV-Min-Fe Fum-FA-DHA ( 1 PO) (20 sources) MV-Min-Fe Fum-FA-DHA ( 1 PO) Take by mouth Active Completed/Discontinued Medications MedicationDrug Class(es)DatesSig (Normalized)Sig (Original)ibuprofen 800 mg oral tablet (2 sources)Nonsteroidal Anti-inflammatory DrugStart: 06-01-2021 End: 13-62-6890jmqy 1 tablet by mouth every eight hours as neededibuprofen (ADVIL,MOTRIN) 800 mg tablet Take 1 tablet (800 mg total) by mouth every 8 (eight) hours as needed (cramping). 30 tablet 06/01/2021 11/05/2024 Discontinued (Therapy completed)nitrofurantoin, macrocrystals 25 mg / nitrofurantoin, monohydrate 75 mg oral capsule (6 sources)Nitrofuran AntibacterialStart: 09-11-2024 End: 56-09-3124hnph 1 capsule by mouth in the morningnitrofurantoin, macrocrystal-monohydrate, (Macrobid) 100 MG capsule Indications: Urinary tract infection without hematuria, site unspecified Take 1 capsule (100 mg) by mouth in the morning and 1 capsule (100 mg) before bedtime. Do all this for 7 days. 14 capsule 09/11/2024 09/18/2024 ExpiredStart: 02-21-2023 End: 27-16-2011xaid 1 capsule by mouth every twelve hoursMacrobid 100 mg Cap 100 mg = 1 cap(s), Oral, q12hr, X 5 day(s), # 10 cap(s), Refills(s) 0, Pharmacy: [facility], 166, cm, 02/21/23 13:06:00 EST, Height/Length Dosing, 58.6, kg, 02/21/23 13:06:00 EST, Weight Dosing Start Date: 02/21/23 Stop Date: 02/26/23 Status: Orderedprogesterone (FIRST-PROGESTERONE VGS) 200 mg suppository (2 sources)Start: 03-26-2021 End: 25-27-0699vhuarwcztrdd (FIRST-PROGESTERONE VGS) 200 mg suppository Indications: Hypothyroid [...] Problems Problem ClassificationProblemDateDocumented DateEpisodic/ChronicAbdominal pain (13 sources)Abdominal vtre40-36-7026EtgwlcbgCdfljcsui infection; unspecified site (1 source)Infection due to Escherichia coli; Translations: [Unspecified Escherichia coli [E. coli] as the cause of diseases classified elsewhere]Onset: 88-61-4556VvnxiapkSzwktebj or abnormal glucose tolerance complicating ; childbirth; or the puerperium (18 sources)History of gestational diabetes mellitus; Translations: [Gestational diabetes mellitus]Onset: 05-19-2021 Resolved: 496273-38-0855GictrebbBctrqjqsmhsls symptoms and ill-defined conditions (4 sources)Dysuria; Translations: [Dysuria]Onset: 79-40-0660DtwhbssxTbfttdav; including migraine (13 sources)Migraine without asvm28-35-2470ZidpnjzHixqidju; including migraine (6 sources)Headache; Translations: [Nonintractable headache, unspecified chronicity pattern, unspecified headache type]07-84-9573QrviaxjrSpmxxkgrni during ; abruptio placenta; placenta previa (4 sources)Low lying placenta; Translations: [Low lying placenta NOS or without hemorrhage, unspecified trimester]Onset: 707008-89-2417ExkssxjvSrcvyvihmwc (15 sources)Hemorrhoids; Translations: [Unspecified hemorrhoids]Onset: 11-92-6173XqsxybszObvgblnuylhla and screening for infectious disease (4 sources)Encounter for screening for human papillomavirus (HPV); Translations: [Contact with and (suspected)exposure to infections with a predominantly sexual mode of transmission]Onset: 784512-77-6520FufgeiinRbcicqtdhzro; infection of eye (except that caused by tuberculosis or sexually transmitteddisease) (4 sources)Cvngupzme70-39-0398CgbvyrzxCpgmxyjwj disorders (15 sources)Dysmenorrhea; Translations: [Dysmenorrhea, unspecified]Onset: 504288-20-7497EhmqocfHurcx complications of (5 sources)Endocrine, nutritional and metabolic diseases complicating , unspecified trimester; Translations: [ENDOCRN NUTR MET DZ COMP PG UNS TRI]Onset: 07-04-3910IwnvludiQrwtp complications of (2 sources)Thyroid disease in mother complicating , childbirth AND/OR puerperium; Translations: [Endocrine, nutritional and metabolic diseases complicating , unspecified trimester]17-74-5008MtdgwbcvUqdgi complications of (8 sources)Hypothyroidism in ; Translations: [Endocrine, nutritional and metabolic diseases complicating , unspecified trimester]Onset: 494944-17-6004VnfotafpXzbbp complications of (3 sources)History of gynecological disorder; Translations: [Supervision of with other poor reproductive or obstetric history, unspecified trimester]Onset: 099622-02-2713LnvnulswGicxn complications of (2 sources) size does not accord with dates; Translations: [Uterine size- date discrepancy, second trimester]66-03-5518BypknvweKbuet endocrine disorders (4 sources)Blmuztbpkcio58-37-9740GirlbfnAvjkt eye disorders (4 sources)Eye fdpjrud34-72-2212VareqksdAlsyh female genital disorders (4 sources)Lesion of -31-0647UpequgzzSjioz female genital disorders (1 source)Noninflammatory disorder of vulva; Translations: [Other specified noninflammatory disorders of vulva and perineum]Onset: 73-70-3947LybayhecUeccm female genital disorders (2 sources)Vaginal discharge; Translations: [Other specified noninflammatory disorders of vagina]16-48-4041SnqzyfedNetnl gastrointestinal disorders (4 sources)Tjgdygpgptfh75-75-8603SzihzgmoErhnj gastrointestinal disorders (1 source)Digestive system finding; Translations: [Other specified symptoms and signs involving the digestivesystem and abdomen]Onset: 26-59-3737PkzermlmBegsc gastrointestinal disorders (1 source)Constipation, unspecified; Translations: [Constipation, unspecified] Onset: 90-31-3178WjdakuueTzwjj inflammatory condition of skin (4 sources)Pruritus ani; Translations: [Pruritus ani]Onset: 44-18-5295Ckaazaoa Other lower respiratory disease (13 sources)H/O: respiratory fdkzepn29-20-3683SgqbzbpwOlbrb nutritional; endocrine; and metabolic disorders (12 sources)Weight qunh92-27-4788IsarotqaHhhmc nutritional; endocrine; and metabolic disorders (1 source)Abnormal weight loss; Translations: [Abnormal weight loss]Onset: 91-93-2607VqekuicwYyqsg and delivery including normal (20 sources)Encounter for supervision of normal first , first trimester; Translations: [Encounter for supervision of normal , unspecified, unspecified trimester]Onset: 75-68-8048SxsoorygLqquv screening for suspected conditions (not mental disorders or infectious disease) (13 sources)Encounter for screening for malignant neoplasm of cervix; Translations: [Encounter for screening, unspecified]Onset: 12-09-2020 EpisodicResidual codes; unclassified (3 sources)Body mass index 20-24 - normal; Translations: [Body mass index (BMI) 21.0-21.9, adult]Onset: 78-25-1378PohjqiylYzcegxsc codes; unclassified (1 source)Family history of malignant neoplasm of digestive organ; Translations: [Family history of malignantneoplasm of digestive organs]Onset: 11-30-2022 EpisodicResidual codes; unclassified (11 sources)Family history of cancer of yorbc88-95-8428SrcxnpgyKxxfcquj codes; unclassified (4 sources)Family history of autism; Translations: [Family history of other mental and behavioral disorders]Onset: 122170-18-1151SpwxrdhhPizolhxe codes; unclassified (2 sources)Gestation period, 13 weeks; Translations: [13 weeks gestation of ]99-88-7042MeiodtfnZhgimanv codes; unclassified (15 sources)History of previous intrauterine growth restricted ; Translations: [Personal history of other complications of , childbirth and the puerperium]Onset: 730956-99-4457VhhxwpgfZmfvtwwh codes; unclassified (2 sources)Gestation period, 17 weeks; Translations: [17 weeks gestation of ]32-29-6175SnlezynhWrvzvhys codes; unclassified (1 source)Gestation period, 20 weeks; Translations: [20 weeks gestation of ]64-40-1887HogwkpjdUymzzaay codes; unclassified (7 sources)History of premature rupture of membranes; Translations: [Personal history of other complications of , childbirth and the puerperium]Onset: 948143-10-4121RtyuxlssMpexmvox codes; unclassified (2 sources)Gestation period, 21 weeks; Translations: [21 weeks gestation of ]83-71-6477HtlmsojoVbolcfgs codes; unclassified (2 sources)Personal history of other complications of , childbirth and the puerperium; Translations: [Personal history of other complications of , childbirth and the puerperium]Onset: 09-53-2800TqsejzsgFgdwinid codes; unclassified (1 source)20 weeks gestation of ; Translations: [20 weeks gestation of ]Onset: 62-57-9368HymsudyaRorzfpmu codes; unclassified (2 sources)Gestation period, 25 weeks; Translations: [25 weeks gestation of ]22-49-3601LtymtjfwJenpxjfp codes; unclassified (2 sources)Gestation period, 28 weeks; Translations: [28 weeks gestation of ]10-74-0192GvsiyclfGwtjiiew codes; unclassified (2 sources)Gestation period, 30 weeks; Translations: [30 weeks gestation of ]09-62-6604ZbvqacfcPbarorat codes; unclassified (2 sources)Gestation period, 32 weeks; Translations: [32 weeks gestation of ]10-88-4956RxqqjdmgBmfctnf disorders (20 sources)Hypothyroidism, unspecified; Translations: [Hypothyroidism]Onset: 13-31-7069NnrocjaTmgmipf disorders (12 sources)Disorder of thyroid, unspecified; Translations: [Disorder of thyroid gland]Onset: 69-85-6978CumnfoaxJquqsciviklv (13 sources)Body mass index 20-24 - yyghxw09-39-5553Kprwkbbhdole (13 sources)Bdo-sgofrj69-55qedryw65-14-1219Rglymqhlqttg (5 sources)Pain of knee qjfhym72-85-8083Rjjrmooqogzm (8 sources)Patient encounter ntvuxg60-25-2317Eilhfyuxniix (3 sources)Rectum rxzjgoy88-55-3913Usljioitnowu (8 sources)Finding of sensation of zdajfqu73-90-8661Zguiytcauwhj (1 source)Hx previous FGROnset: 18-91-3451Xyguhbr tract infections (13 sources)Acute cystitis; Translations: [Acute cystitis without hematuria] Onset: 32-70-9995Qkvzbhdw Past or Other Problems Problem ClassificationProblemDateDocumented DateEpisodic/ChronicEarly or threatened labor (6 sources)Premature uterine contraction; Translations: [False labor before 37 completed weeks of gestation, third trimester]Onset: 04-21-2021 Resolved: 689479-76-7868RyzehdreGhrsm complications of (3 sources)Disorder of ; Translations: [Maternal care for other known or suspected poor growth,unspecified trimester, not applicable or unspecified]Onset: 03-03-2021 Resolved: 273919-25-7772JjwyncolVhlgk complications of (3 sources)Short cervical length in ; Translations: [Cervical shortening, third trimester]Onset: 05-19-2021 Resolved: 796902-30-9452NeudlvsgCohzv complications of (2 sources)Endocrine, nutritional and metabolic diseases complicating , second trimester; Translations: [Endocrine, nutritional and metabolic diseases complicating , second trimester]Onset: 09-53-7225DmanwodiTesyh female genital disorders (4 sources)Other specified noninflammatory disorders of vagina; Translations: [OTH SPEC NONINFLAMMATORY D/O VAGINA]Onset: 19-67-9977YtjqejipIaqntsupfkychi and other problems of amniotic cavity (3 sources) premature rupture of membranes ; Translations: [ premature rupture of membranes, unspecified as to length of time between rupture and onset of labor, unspecified trimester]Onset: 05-30-2021 Resolved: 683498-33-0267Kxvizcex Results Test NameValueInterpretationReference RangeFacilityUrinalysis macro (dipstick) panel (U)on 79-35-1816Mthggjwdl, UANegativeNegative - 4(70) +++ mg/dLNOMS HealthcareBlood, UANegativeNegative [...] mg/dLNOMS HealthcareNOMS HealthcareUrinalysis macro (dipstick) panel (U)on 42-86-3843Jshfqcgof, UA NegativeNegative - 4(70) +++ mg/dLNOMS HealthcareBlood, [...] - 1.03[facility] Urobilinogen, UA0.20.2 - 12 mg/dLNOOK HealthcareNOMS HealthcareUS OB FOLLOW UP TRANSABDOMINAL APPROACHon 21-33-3820PX OB FOLLOW UP TRANSABDOMINAL APPROACH FINDINGS: A [...] Delivery: 03/23/25 Gestational Age as of 12/10/2024: 71y8aGglbspqxhy macro (dipstick) panel (U)on 00-48-8223Wkubyhgox, UANegativeNegative - 4(70) +++ mg/dLNOMS HealthcareBlood, UANegativeNegative - 50 Cedric/mcLNOMS HealthcareClarity, UAClearNOMS Healthcare Color, UAYellowNOMS HealthcareGlucose, UANegativeNegative - 2000(110) ++++ mg/dL NOMS HealthcareInterpretation and review of laboratory resultsNormalNOOK HealthcareKetones, UANegativeNegative - 160(16) ++++ mg/dLNOOK Healthcare Leukocytes, UANegativeNegative - 500+++ Ayana/mcLNOMS HealthcareNitrite, UA NegativeNegative - PositiveNOMS HealthcarepH, UA7.05 - 9NOMS HealthcareProtein, UANegativeNegative - 2000(20) ++++ mg/dLNOOK HealthcareSpec Grav, UA1.0101 - 1.03NOOK HealthcareUrobilinogen, UA0.20.2 - 12 mg/dLNOCedar County Memorial HospitalNOOK HealthcareGLUCOSE TOLERANCE 3 HOURon 33-09-8829JOKLNMM TOLERANCE 3 HOURHighmg/dL NOM HealthcareComment on above:GLU FAST 89 (<95) Col: 12/12/24 0842 GLU 1HR 178 (<180) Col: 12/12/24 0949 GLU 2HR 156H (<155) Col: 12/12/24 1041 GLU 3HR 103 (<140) Col: 12/12/24 1147 Interpretation and review of laboratory resultsAbnormalNOOK HealthcareCLINISYNC NOM HealthcareALL CBC WITH AUTO DIFFon 48-70-1045OFAJZFLGW ABSOLUTE EXWB9QZQZCedar County Memorial HospitalBasophils/100 WBC (Bld)0.3 %0.2 - 2.0 %NOMS HealthcareEosinophils/100 WBC (Bld)0.5 %Low0.9 - 7.0 %[facility] Medical CenterErythrocyte distribution width (RBC) [Ratio]12.4 %11.0 - 15.0 %NOMSac-Osage HospitalHematocrit (Bld) [Volume fraction]32.4 %Low36.0 - 48.0 %[facility] Medical CenterHemoglobin (Bld) [Mass/Vol]10.8 g/dLLow12.0 - 16.0 g/dLNOCedar County Memorial HospitalIMMATURE GRANULOCYTES ABS AUTO0.03NOC[facility] Immature granulocytes/100 WBC (Bld)0.3 %0.0 - 0.5 %[facility] CenterInterpretation and review of laboratory resultsAbnormalSaint John's Breech [facility] Medical CenterLYMPHOCYTES ABSOLUTE AUTO1.3NOCedar County Memorial HospitalLymphocytes/100 WBC (Bld)14.4 %Low20.5 - 60.0 %[facility] HospitalH (RBC) [Entitic mass]33.2 pg26.7 - 34.0 pgNOCedar County Memorial HospitalMCHC (RBC) [Mass/Vol]33.3 g/dL29.9 - 35.2 g/dLNOOK HealthcareMCV (RBC) [Entitic vol]99.7 fL High81.0 - 99.0 fLNOOK HealthcareMONOCYTES ABSOLUTE AUTO0.4NOMS Healthcare Monocytes/100 WBC (Bld)4.6 %1.7 - 12.0 %NOMS HealthcareNEUTROPHILS ABSOLUTE AUTO 7HighNOOK HealthcareNeutrophils/100 WBC (Bld)79.9 %High43.0 - 75.0 %NOMS HealthcarePlatelet mean volume (Bld) [Entitic vol]10.5 fL9.5 - 13.5 fLNOOK HealthcareTBH EO #0NOMS HealthcareTBH [id number] HealthcareTBH RBC3.25LowNOMS HealthcareTBH WBC8.8NOOK HealthcareCLINISYNCNOMS HealthcareUrinalysis macro (dipstick) panel (U)on 28-85-0352Tdkzocfio, UANegativeNegative - 4(70) +++ mg/dL NOMS HealthcareBlood, UANegativeNegative - 50 Cedric/mcLNOMS HealthcareClarity, UA ClearNOMS HealthcareColor, UAYellowNOMS HealthcareGlucose, UANegativeNegative - 1999(110) ++++ mg/dLNOMS HealthcareInterpretation and review of laboratory resultsNormalNOOK HealthcareKetones, UANegativeNegative - 160(16) ++++ mg/dLNOMS HealthcareLeukocytes, UANegativeNegative - 500+++ Ayana/mcLNOMS HealthcareNitrite, UANegativeNegative - PositiveNOMS HealthcarepH, UA75 - 9NOMS HealthcareProtein, UANegativeNegative - 2000(20) ++++ mg/dLNOMS HealthcareSpec Grav, UA1.011 - 1.03 NOMS HealthcareUrobilinogen, UA0.20.2 - 12 mg/dLNOOK HealthcareNOOK Healthcare Urinalysis macro (dipstick) panel (U)on 54-34-5184Cawpwvjnl, UANegativeNegative - 4(70) +++ mg/dLNOMS HealthcareBlood, UANegativeNegative - 50 Cedric/mcLNOMS HealthcareClarity, UAClearNOMS HealthcareColor, UAYellowNOMS HealthcareGlucose, UAPositiveNegative - 1999(110) ++++ mg/dLNOOK HealthcareInterpretation and review of laboratory resultsAbnormalNOMS HealthcareKetones, UANegativeNegative - 160(16) ++++ mg/dLNOOK HealthcareLeukocytes, UANegativeNegative - 500+++ Ayana/mcL NOM HealthcareNitrite, UANegativeNegative - PositiveNOMS HealthcarepH, UA65 - 9 NOMS HealthcareProtein, UANegativeNegative - 1999(20) ++++ mg/dLNOOK Healthcare Spec Grav, UA1.0151 - 1.03NOOK HealthcareUrobilinogen, UA1.00.2 - 12 mg/dLNOOK HealthcareNOOK HealthcareALL THYROID STIM HORMONEon 86-23-1341NUD Qn2.68 m[IU]/L [facility] Medical CenterCLINISYNCNOMS HealthcareAFP, SERUM, OPEN SPINA BIFIDAon 83-56-7241YAJ MOM0.82.[facility] Medical CenterAFP VALUE34.7 ng/mL.[facility] HealthcareCOMMENT: Comment.[facility] Medical CenterComment on above:Alie Moon, Ph.D., [facility] [facility] Director References: Available Upon Request. Multiples Of Median Cutoffs For AFP Elevations Murphy 2.5 Black 2.8 IDD 2.0 Twins 4.5 Abbreviation Definitions IDD - Insulin Dep Diabetes OSBR - Open Spina Bifida Risk For further inquiries contact [employer] at [phone]. This test was developed and its performance characteristics determined by [employer]. It has not been cleared or approved by the Food and Drug Administration. Performed at: [facility] [address] [place], [place] [id number] Stationary Engineer Apprentice: Pily Meraz [facility], Phone: [phone] GEST. AGE ON COLLECTION DATE17.3. weeksNOOK HealthcareGESTAT. AGE BASED ONLMP. [facility] HealthcareComment on above:Recalculations are not recommended when gestational dating by LMP and ultrasound are within 10 days. INSULIN DEP DIABETESNo.[facility] HealthcareINTERPRETATIONComment.[facility] Comment on above:Interpretation: Screen Negative [...] Customer Services to discuss available options. The [employer] recommends amniocentesis be offered to women age 35 and older. MATERNAL AGE AT EDD27.1. yrNOOK HealthcareMULTIPLE GESTATIONNo.[facility] Healthcare OSBR RISK 1 [id number].[facility] HealthcareRACECaucasian.[facility] HealthcareRESULTSReport. [facility] HealthcareTEST RESULTS:Negative.[facility] CenterRlzyatxffyPZPXGY263. lbsNOOK HealthcarePREGNANCY N N LMP [id number] 2 17 N 1 Y 134 N N N N N White/ CLINISYNCNOCedar County Memorial HospitalUrinalysis macro (dipstick) panel (U)on 10-15-2024 Bilirubin, UANegativeNegative - 4(70) +++ mg/dLNOOK HealthcareBlood, UANegative Negative - 50 Cedric/mcLNOOK HealthcareClarity, UAClearNOOK HealthcareColor, UA YellowNOMS HealthcareGlucose, UANegativeNegative - 2000(110) ++++ mg/dLAL[facility] HealthcareInterpretation and review of laboratory resultsNormalSaint [facility]'s B[facility] Ketones, UANegativeNegative - 160(16) ++++ mg/dLAL[facility] HealthcareLeukocytes, UA NegativeNegative - 500+++ Ayana/mcLNOOK HealthcareNitrite, UANegativeNegative - PositiveNOOK HealthcarepH, UA65 - 9NOOK HealthcareProtein, UANegativeNegative - 2000(20) ++++ mg/dLNOOK HealthcareSpec Grav, UA1.0151 - 1.03NOOK Healthcare Urobilinogen, UA0.20.2 - 12 mg/dLSSM Rehab HealthcareGLUCOSE 1 HOURon 06-55-9477Rgqbbrm [Mass/Vol]108 mg/dLNINF - 130 mg/dLAL[facility]IEW [facility] HealthcareCLINISYNC [facility] CenterALL MISCELLANEOUS TESTon 31-28-5285QWGWTNTQXKKCM TESTCOMMENT.[facility] HealthcareComment on above:Test Ordered: [id number] Parvovirus B19, Human, IgG/IgM Parvovirus B19, IgG 0.1 index BN Reference Range: 0.0-0.8 Negative <0.9 Equivocal 0.9 - 1.1 Positive >1.1 Parvovirus B19, IgM 0.1 index Reference Range: 0.0-0.8 Negative <0.9 Equivocal 0.9 - 1.1 Positive >1.1 Performed at: [address] [id number] Stationary Engineer Apprentice: Darion Moon MD, Phone: [phone] Performed at: [address] [id number] Stationary Engineer Apprentice: Madi Maloney PhD, Phone: [phone] Parvovirus B19 (Human), IgG, IgM CLINISYNCNOMS HealthcareALL MISCELLANEOUS TESTon 29-66-0956LUMLNWYXUCBIY TEST COMMENT.NOMS HealthcareComment on above:Test Ordered: [id number] Parvovirus B19, Human, IgG/IgM Parvovirus B19, IgG 0.1 index Reference Range: 0.0-0.8 Negative <0.9 Equivocal 0.9 - 1.1 Positive >1.1 Parvovirus B19, IgM 0.1 index Reference Range: 0.0-0.8 Negative <0.9 Equivocal 0.9 - 1.1 Positive >1.1 Performed at: [address] [id number] Stationary Engineer Apprentice: Darion Moon MD, Phone: [phone] Performed at: [address] [id number] Stationary Engineer Apprentice: Madi Maloney PhD, Phone: [phone] Parvovirus B19 (Human), IgG, IgM CLINISYNCNOMS HealthcareALL CBC WITH AUTO DIFFon 14-76-4660RJMZLWBXQ ABSOLUTE MTNM4DJIC HealthcareBasophils/100 WBC (Bld)0.5 %0.2 - 2.0 %[facility] Eosinophils/100 WBC (Bld)0.5 %Low0.9 - 7.0 %NOMS HealthcareErythrocyte distribution width (RBC) [Ratio]12.3 %11.0 - 15.0 %NOMS HealthcareHematocrit (Bld) [Volume fraction]38.5 %36.0 - 48.0 %NOMS HealthcareIMMATURE GRANULOCYTES ABS AUTO0.02NOOK HealthcareImmature granulocytes/100 WBC (Bld)0.3 %0.0 - 0.5 % [facility] CenterInterpretation and review of laboratory resultsAbnormalNOOK HealthcareLYMPHOCYTES ABSOLUTE AUTO1.6NOMS HealthcareLymphocytes/100 WBC (Bld)21 %20.5 - 60.0 %[facility] HospitalH (RBC) [Entitic mass]33.5 pg26.7 - 34.0 pgSt. Lukes Des Peres HospitalHC (RBC) [Mass/Vol]35.6 g/vTHuum63.9 - 35.2 g/dLSt. Lukes Des Peres HospitalV (RBC) [Entitic vol]94.1 fL81.0 - 99.0 fLSaint John's Breech Regional Medical CenterMONOCYTES ABSOLUTE AUTO 0.4NOMS HealthcareMonocytes/100 WBC (Bld)5.1 %1.7 - 12.0 %[facility] NEUTROPHILS ABSOLUTE AUTO5.6NOCedar County Memorial HospitalNeutrophils/100 WBC (Bld)72.6 %43.0 - 75.0 %[facility] Medical CenterPlatelet mean volume (Bld) [Entitic vol]11.1 fL9.5 - 13.5 fLSaint John's Breech Regional Medical CenterTBH EO #0NOCedar County Memorial HospitalTBH RDK554GOYPPutnam County Memorial Hospital RBC4.09[facility] WBC7.8[facility] Medical CenterCLINISYNCCBC and differentialon 42-55-5207Mkhypwbrpi (Bld) [Volume fraction]39 %36 - 46 %[facility] Platelets (Bld) [#/Vol]211 10*3/uL150 - 399 10*3/uLProMedica Health SystemWBC (Bld) [#/Vol]7.8 10*3/mL3.3 - 10.0 10*3/mLRockingham Memorial HospitalMedica Uc Health SystemDrug Screen, Urineon 28-94-1534Giskrpvtcbw/MethamphetamineNegativeProMedica Health System BarbituratesNegativeProMedica Health SystemBenzodiazepinesNegativeProMedica Health SystemCocaine MetaboliteNegativeRockingham Memorial HospitalMedica Health SystemMethadoneNegative ProMedica Health SystemOpiatesNegativeRockingham Memorial HospitalMedica Health SystemOxycodoneNegative ProMedica Health SystemPhencyclidineNegativeProMedica Health SystemThc Marijuana, UrineNegativePeoples HospitalHBV surface Ag IA Qlon 08-21-2024 Hepatitis B Surface AntigenNegativePeoples HospitalHCV Ab IA Qlon 17-69-5223XVG Ab Ql (S)Non-ReactivePeoples HospitalHIV 1+2 Ab+HIV1 p24 Ag IA Qlon 85-63-1291XDG 1&2 AB/AGNon-ReactivePeoples HospitalHemoglobin A1con 47-19-3784XqO8d (Bld) [Mass fraction]5.6 %4.0 - 6.0 %Peoples HospitalLaboratory - Hematology and Cell countson 54-87-5632Etkjmvdteq (Bld) [Mass/Vol]13.7 g/dL12.0 - 16.0 g/dLSaint John's Breech Regional Medical CenterNo Panel Informationon 91-57-7662BYQN HealthcareRubella IGG immune statuson 13-18-5519Lfuxueb immune IgGimmunePeoples HospitalT. pallidum IgG+IgM IA Ql (S)Ordered By: Nadira Salazar on 23-83-8459XdevbohdEei-ReactivePeoples HospitalTSHon 02-16-6266Pqwzkpo Stimulating (3Rd Generation) Hormone/ Tsh7.721PMount St. Mary HospitalType and screenon 67-03-8483Wam/Rh(D)PositivePeoples HospitalHCG ( test) Ql (U)on 44-92-4211Grdgfspvcvnwkm and review of laboratory resultsAbnormalSaint John's Breech Regional Medical CenterPreg Test, UrPositiveNegativeSSM Rehab HealthcareUS OB TRANSVAGINALon 70-93-7715GQ OB TRANSVAGINALEXAM: US OB TRANSVAGINAL HISTORY: Dating. [...] II, MD, PHD at 20-Aug-2024 10:22:40 AM [facility]-[place] TeleradiologyNormalNot AvailableComment on above:Order Comment: US OB TRANSVAGINAL No LMP recorded.Urinalysis macro (dipstick) panel (U)on 02-72-9325Takugmmgc, UA NegativeNegative - 4(70) +++ mg/dLNOMS HealthcareBlood, [...] - 12 mg/dLNOMS HealthcareNOMS HealthcareAmbulatory Visit Summaryon 87-63-6033Mzzxjiidqn Visit SummaryAmbulatory Visit Summary YANA CHURCH :2000 [...] 8:40 AM EDT With: Marta Rivas Where: [facility] Primary Care [address] [place] [address], [address] [place] [id number] Medications What How Much When Why Instructions [...] you for choosing us for your care. [facility] Medicine Office/Clinic Noteon 44-75-0133Ekdaoy Medicine Office/Clinic NoteFawhittier rehabilitation hospital Medicine Office/Clinic Note Chief Complaint Establish [...] anymore, managed with tylenol Social History: Occupation: [employer] Family life: home with and daughter Diet: no restrictions Caffeine: 1 cup coffee/day Exercise: active lifestyle Alcohol use: denies Drug use: denies Smoking status: denies Health Maintenance: Routine labs: thyroid labs 06/2024, declines further labs Pap (21-64yo): 04/2023 Specialists: Assistant Women'S Basketball Coach: krysta Dentist: krysta OBGYN: Joanna Review of [...] other medications. Recheck TSH/T (more content not included)...[facility] Comment on above:Result Comment: Electronically Signed By: Marta Rivas\.br\Date and Time Signed: 07/09/24 08:35 EDTAmbulatory Visit Summaryon 86-15-5345Xmugxfynfq Visit SummaryAmbulatory Visit Summary YANA CHURCH :2000 [...] 8:00 AM EDT With: Marta Rivas Where: [facility] Primary Care [address] [facility] [address], [facility] [place] [address]- Medications What How Much When Why Instructions New amoxicillin-clavulanate (Augmentin 875 mg-125 mg Tab) 1 Tablets By Mouth Every 12 hours Acute sinusitis Duration: 10 Days Pickup at [facility] Unchanged levothyroxine (Synthroid 100 mcg Tab) 1 Tablets By Mouth Every day Pharmacy Information [facility]: [address] [place], [place] [id number] [phone] Allergies No Known Allergies Problems Ongoing - [...] you for choosing us for your care. [facility] Medicine Office/Clinic Noteon 49-90-0533Jczode Medicine Office/Clinic NoteFawhittier rehabilitation hospital Medicine Office/Clinic Note Chief Complaint possible [...] for 10 day(s), 20 tab(s), Refill(s) 0, [facility], 166, cm, 07/05/24 15:34:00 EDT, Height/Length [...] When Contact Information Julienne BARTLETT, Ham Montano, [facility], [address], [address] [phone] Additional Instructions: as scheduled with Marta Patient Education Sinus Infection, Adult, Njmq-rr-Icoe How to Perform a Sinus Rinse, Xgie-cl-Zmpu Problem List/Past Medical History Ongoing Acute sinusitis [...] poliovirus vaccine, inactivated (more content not included)...Normal [facility] CenterComment on above:Result Comment: Electronically Signed By: Julienne BARTLETT, Ham Montano\.br\Date and Time Signed: 07/05/24 16:06 EDT CHEMISTRYOrdered By: SYSTEM SYSTEM on 77-14-4745Ican T4 [Mass/Vol]0.82 ng/dL Normal0.58 - 1.64 ng/dLRemisol ChemTSH Qn3.09 m[IU]/LNormal0.34 - 5.60 mcIU/mL Remisol ChemFree T4on 38-29-7361Nmku T4 [Mass/Vol]0.82 ng/dLNormal0.58-1.64 [facility] CenterComment on above:Performed By: #### [id number] #### [facility] Laboratory [address] [place], [place] [address]TVFuv 35-22-7556DNS Qn3.09 m[IU]/LNormal0.34-5.60[facility] Medical CenterComment on above:Performed By: #### [id number] #### [facility] Laboratory [address] [place], [place] [address]AWL EXTRACTION AND HOLDon 85-85-5482CxhjtnIwiizr Puregene Reagents from QiagenInvalid Interpretation [facility] on above:Order Comment: Release to patient->AutomaticNucleic Acid Concentration 273.2 ng/uLInvalid Interpretation [facility] on above: Order Comment: Release to patient->AutomaticNucleic Acid Purity1.90Invalid Interpretation Code1.70-2.10[facility] on above:Order Comment: Release to patient->AutomaticSignature .Invalid Interpretation [facility] on above:Order Comment: Release to patient->AutomaticStorage and Special InstructionsInvalid Interpretation [facility] on above:Order Comment: Release to patient->AutomaticResult Comment: The extracted DNA is stored in the [facility]etics Laboratory at -70 degrees C and is being held for future testing. If there are any questions regarding this sample, please contact the [facility] at [phone].Total DNA Yield82.0 ugInvalid Interpretation [facility] on above:Order Comment: Release to patient->AutomaticTotal Volume [id number] ulInvalid Interpretation Code [facility] on above:Order Comment: Release to patient->AutomaticIGP,APTIMA HPV,AGE GDLNon 23-84-4619WIO GDLN ACOG TESTINGNote. NOMS HealthcareComment on above:TESTS RESULT FLAG UNITS REF RANGE LAB Clinician Provided Cytology Information Source.............Cervix;Endocervix No. of containers..01 ThinPrep Vial Age Maicolo ACOG Francheska... FLAG LEGEND: L-Low Normal,H-High Normal,LL-Alert Low,HH-Alert High <-Panic Low,>-Panic High,A-Abnormal,AA-Critical Abnormal Performed at: 01 = [address] [place] [address] Sugey Torres MD, IGP, RFX APTIMA HPV ASCUNote.[facility]ABIESS HealthcareComment on above:TESTS RESULT FLAG UNITS REF RANGE LAB DIAGNOSIS: 02 NEGATIVE FOR INTRAEPITHELIAL LESION OR MALIGNANCY. Specimen adequacy: 02 Satisfactory for evaluation. Endocervical and/or squamous metaplastic cells (endocervical component) are present. Performed by: 02 Yudy Rhoades, Casing Crew Pusher ([facility]) . 02 Note: Note 02 The Pap [...] <-Panic Low,>-Panic High,A-Abnormal,AA-Critical Abnormal Performed at: [address] [address] Sugey Torres MD, Performed at: = - [facility] [address] [id number] Stationary Engineer Apprentice: Sugey Torres MD, Phone: [phone] Performed at: - [facility] [id number] Stationary Engineer Apprentice: Sugey Torres MD, Phone: [phone] BRUSH-SPATULA CERVIX ENDOCERVIX CLINISYNCNOMS HealthcareCoding Summary.on 41-34-1375Lvtlyh Summary. DJSHXhwd50OQr7kWi+PGhlYWQ+SA5XRHCiD64qwAZoqS5cB8XISKgKOsuhWELPVIjJCfZmkvVkEF9drH NjZXJu [file] A49ogTVzf3J1Q (more content not included)...NormalL[facility]health [facility]wood Medical Center CHEMISTRYOrdered By: SYSTEM SYSTEM on 67-81-6494Zggu T4 [Mass/Vol]0.92 ng/dL Normal0.58 - 1.64 ng/dLRemisol [facility] Qn3.37 m[IU]/LNormal0.34 - 5.60 mcIU/mL Remisol ChemConsent for Treatmenton 59-14-4715Yxebvyv for Treatment [id number]#1.00TIFFNormalLakehealth Beachwood Medical CenterFree T4on 10-59-9369Zxfz T4 [Mass/Vol]0.92 ng/dLNormal0.58-1.64[facility] CenterComment on above:Performed By: #### [id number] #### [facility] [address] [place] [address]LJCos 91-61-0152LOL Qn3.37 m[IU]/LNormal0.34-5.60[facility] CenterComment on above:Performed By: #### [id number] #### [facility] [address] [place], [place] [address]Aaatujfoxd Visit Summaryon 15-38-8267Tfrhzslhmy Visit Summary YANA CHURCH :2000 Visit Date:08/08/2023 [...] you for choosing us for your care. [facility] Medicine Office/Clinic Noteon 31-19-2062Zecwzs Medicine Office/Clinic NoteChief Complaint f/u for hypothyroid [...] Unspecified hemorrhoids) Resolved, no additional complaints. saw [facility] for screening colonoscopy/diagnostic colonoscopy due to constipation [...] with voice recognition artificial intelligence software, specifically SDI, ElephantDrive and or [employer]. Substitutions may have occurred due to the [...] Social History Alcohol Curren (more content not included)...[facility] HospitalComment on above:Result Comment: Electronically Signed By: [...] Follow these instructions at home: ? Take jwzc-wgp-anycphi and prescription medicines only as told by [...] provider. Document Revised: 03/09/2022 Document Reviewed: 03/09/2022 [employer] Patient Education ? 2022 [employer]. Gastroenterology Hemorrhoids Hemorrhoids are swollen veins in and around the rectum or anus. There are two types of hemorrhoids: ? Internal hemorrhoids. These occur in the veins that are just inside the rectum. They may poke through to the outside and become irritated and painful. ? External hemorrhoids. These occur in the veins that are (more content not included)...NormalLakehealth Beachwood Medical CenterPAP [id number] 05-20-2023. trachomatis rRNA FRANSISCO+probe Ql (Cvx)NegativeInvalid Interpretation CodeNegative [facility] CenterComment on above:Performed By: #### [id number] ####[facility] Sfasvesmnm451 [facility] Centerradhaneponsit beach hospitalamerico [id number] Cytology report Cyto stain Doc (Cvx/Vag)NoteInvalid Interpretation [facility] HospitalComment on above:Result Comment: TESTS RESULT FLAG UNITS REF RANGE LAB Clinician Provided Cytology Information Source.............Cervix No. of containers..01 ThinPrep Vial DIAGNOSIS: 01 NEGATIVE FOR INTRAEPITHELIAL LESION OR MALIGNANCY. Specimen adequacy: 01 Satisfactory for evaluation. Endocervical and/or squamous metaplastic cells (endocervical component) are present. Performed by: 01 Erum Mckenzie, Casing Crew Pusher ([facility]) . 01 Note: Note 01 The Pap [...] <-Panic Low,>-Panic High,A-Abnormal,AA-Critical Abnormal Performed at: [address] [address] Sugey Torres MD, Uqdycwtbk By: #### [id number] ###[facility] Pvrxuboxei[address], [id number] 16+18+31+33+35+39+45+51+52+56+58+59+66+68 DNA Probe+sig amp Ql (Cvx)Negative Invalid Interpretation CodeNegativeFisher St. Agnes HospitalComment on above: Result Comment: This nucleic acid amplification test detects fourteen high-risk HPV types (16,18,31,33,35,39,45,51,52,56,58,59,66,68) without differentiation.Performed By: #### [id number] ####[facility] Czsxhjquzn[address] [facility], [id number]. gonorrhoeae rRNA FRANSISCO+probe Ql (Cvx) NegativeInvalid Interpretation CodeNegCoshocton Regional Medical CenterComment on above:Performed By: #### [id number] ####[facility] Xozqycovaz433 [facility] [id number]. vaginalis rRNA FRANSISCO+probe Ql (Unsp spec)NegativeInvalid Interpretation CodeNegativeLakehealth [facility]wood Medical Center Comment on above:Result Comment: Performed at: [facility] [address] [place], [place] [id number] MD Brian Mayes Performed at: =G [facility] [address] [place], [place] [id number] MD Brian MayesPerformed By: #### [id number] ####[facility] [address] [place] [address] [id number] Medicine Office/Clinic Noteon 32-02-2258Mlkpoq Medicine Office/Clinic NoteChief Complaint Pap, f/u UTI [...] was performed without the assistance of medical device sales as witness Pelvic Exam: Vulva: normal appearance, [...] up every 3-5 years based on results DELICATESSEN MANAGER referral if needed for further testing [...] placed F/u 6 months (more content not included)...NormalL[facility]health [facility] Medical Center Comment on above:Result Comment: Electronically Signed By: Ya Wang\.irvin\Date and Time Signed: 05/16/23 15:38 ESTPAP [id number] 05-16-2023 Gynecological Body SiteCERVIXNormalLakehealth Beachwood Medical CenterComment on above: Performed By: #### [id number] ####[facility] S[address]rkwr[address] [id number] Educationon 23-78-5939Zsqdkwq Education Obstetrics and Gynecology Pap Test Why [...] including vitamins, herbs, eye drops, creams, and pyir-tuh-cgiofky medicines. ? Any bleeding problems you have. [...] provider. Document Revised: 06/05/2021 Document Reviewed: 06/05/2021 Realtime Games Patient Education ? 2022 [employer]. Oncology Cancer Screening for Women A cancer [...] to asbestos. How i (more content not included)...NormalLakehealth Beachwood Medical CenterConsent for Treatmenton 69-90-9889Ereyovo for Treatment [id number]#1.00TIFFNormalLakehealth Beachwood Medical CenterUA With Cult Reflexon 80-22-7481Dmqlgujye Ql (U)NegativeNormalNegative [facility] CenterComment on above:Performed By: #### [id number] ####[facility] [address] [place] [address] Clarity (U)CLEARNormalClearLakehealth Beachwood Medical CenterComment on above:Performed By: #### [id number] ####[place] [address] [place], [place] [address]Mreyp (U)YELLOWNormalYellowLakehealth Beachwood Medical Center Comment on above:Performed By: #### [id number] ####[facility] [address] [place], [place] [address]Yklupolzfu cells.squamous LM.HPF (Urine sed) [#/Area]1-6Tkqrju3-4Scfvdh St. Agnes HospitalComment on above: Performed By: #### [id number] ####[facility] [address] [place], [place] [address]Smyzacf Test strip (U) [Mass/Vol]NegativeNormal NegativeLakehealth Beachwood Medical CenterComment on above:Performed By: #### [id number] ####[facility] [address] [place] [address] Hemoglobin Ql (U)NegativeNormalNegativeLakehealth Beachwood Medical CenterComment on above:Performed By: #### [id number] ####[facility] [address] [place], [place] [address]Ltqwvsl (U) [Mass/Vol]NegativeNormalNegCoshocton Regional Medical CenterComment on above:Performed By: #### [id number] ####[address] [address] [place].plasma/[place].RBC (Bld) [Mass ratio]6-4Frilcx6-7Ilxoue St. Agnes HospitalComment on above:Performed By: #### [id number] ####[address] [address]Qndeemi Ql (U)NegativeNormal NegativeLakehealth Beachwood Medical CenterComment on above:Performed By: #### [id number] ####[address] [address]hB (U)6.0 [pH]Invalid Interpretation Code5.0-9.0L[facility]health Beachwood Medical CenterComment on above:Performed By: #### [id number] ####[address] [address]Vlxyqth (U) [Mass/Vol]NegativeNormal NegativeLakehealth Beachwood Medical CenterComment on above:Performed By: #### [id number] ####[address] [address] Specific gravity (U) [Rel density]>=1.030Invalid Interpretation Code1.005-1.030 [facility] Medical CenterComment on above:Performed By: #### [id number] ####[address] [address]Uayd of Urine collection methodClean CatchNormalLakehealth Beachwood Medical CenterComment on above:Performed By: #### [id number] ####[address] [address]Vurdokpgixxl Qn (U)0.2 {Mehdi'U}/dLNormal0.0-1.0 [facility] CenterComment on above:Performed By: #### [id number] ####[address] [address]COW Auto Ql (U)NegativeNormalNegativeLakehealth Beachwood Medical CenterComment on above: Performed By: #### [id number] ####[address] [place], [place] [address]MEP LM.HPF (Urine sed) [#/Area]7-2Izapje5-8Xxioil St. Agnes HospitalComment on above:Performed By: #### [id number] ####[facility] [address]htjl[address] [place], [place] [address]MJMNYUCCEU Ordered By: Alphonso Wang on 63-30-4090Otswwyzes Ql (U)Negative (03/24/23 11:15 AM)NormalNegativeBROOKHAVEN [facility] UA Auto SSClarity (U)Clear (03/24/23 11:15 AM)NormalClearFNORMAN SPECIALTY [facility] UA Auto SSColor (U)Yellow (03/24/23 11:15 AM)NormalYellowBROOKHAVEN HOSPITAL – [facility] UA Auto SSEpithelial cells.squamous LM.HPF (Urine sed) [#/Area]0-2 /HPFNormal0-2/HPFBROOKHAVEN HOSPITAL – [facility] UA Auto SSGlucose Test strip (U) [Mass/Vol]Negative (03/24/23 11:15 AM)NormalNegativeBROOKHAVEN HOSPITAL [facility] UA Auto SSHemoglobin Ql (U)Negative (03/24/23 11:15 AM)NormalNegativeBROOKHAVEN HOSPITAL [facility] UA Auto SSKetones (U) [Mass/Vol]Negative (03/24/23 11:15 AM)NormalNegativeBROOKHAVEN HOSPITAL [facility] UA Auto SSLithium.plasma/[place].RBC (Bld) [Mass ratio]0-3 /HPFNormal0-3/HPFBROOKHAVEN HOSPITAL [facility] UA Auto SSNitrite Ql (U)Negative (03/24/23 11:15 AM)NormalNegativeBROOKHAVEN HOSPITAL [facility] UA Auto SSpH (U)6.0 *NA* (03/24/23 11:15 AM)Invalid Interpretation Code5.0 - 9.0[facility] UA Auto SSProtein (U) [Mass/Vol]Negative (03/24/23 11:15 AM)NormalNegativeBROOKHAVEN HOSPITAL [facility] UA Auto SSSpecific gravity (U) [Rel density] >=1.030 *NA* (03/24/23 11:15 AM)Invalid Interpretation Code1.005 - 1.030[facility] UA Auto SSUA Spec DescClean Catch (03/24/23 11:15 AM)NormalBROOKHAVEN HOSPITAL – [facility] UA Auto SSUrobilinogen Qn (U)0.4328103 {Mehdi'U}/dLNormal0.0 - 1.0 EU/dLBROOKHAVEN HOSPITAL – [facility] UA Auto SSWBC Auto Ql (U)Negative (03/24/23 11:15 AM)NormalNegativeBR[facility]HAV[facility] UA Auto SSWBC LM.HPF (Urine sed) [#/Area]0-5 /HPFNormal0-5/HPFBROOKHAVEN HOSPITAL – [facility] UA Auto SST3 Freeon 38-25-6191Niwq T3 [Mass/Vol]2.9 pg/mL Invalid Interpretation Code2.0-4.4Fisher St. Agnes HospitalComment on above: Result Comment: Performed at: [facility] [address] [id number] PhD Haider BarrazaPerformed By: #### [id number], 0240877, [id number] ####[facility] [address] [place], [place] [address]UB Retroperitoneal Completeon 62-08-5237CR Retroperitoneal CompleteExam Date/Time: 03/22/2023 09:49 EST Reason [...] Agnes HospitalCHEMISTRY Ordered By: SYSTEM SYSTEM on 18-18-2323Aftk T4 [Mass/Vol]1.10 ng/dLNormal0.58 - 1.64 ng/dLRemisol ChemTSH Qn0.90 m[IU]/LNormal0.34 - 5.60 mcIU/mLRemisol Chem Consent for Treatmenton 47-59-9831Jnuxrij for Treatment [id number]#1.00TIFFFlower HospitalFree T4on 38-00-7596Shce T4 [Mass/Vol]1.10 ng/dLNormal0.58-1.64[facility] CenterComment on above:Performed By: #### [id number], 5182793, 7601952 ####[facility] [address] [place], [place] [address]ZYFfq 67-07-6056JGY Qn0.90 m[IU]/LNormal0.34-5.60[facility] Medical CenterComment on above:Performed By: #### 3629378, 7537979, 2377080 ####[facility] [address] [place] [address] 89[address]K Urineon 65-54-5845Wbepvfba identified Cx Nom (U)Microbiology PROCEDURE: Urine Culture [...] Locations R1: This test was performed at: [facility], [address] [place] [address], [id number] [place] [address], EodtkdBdmonzFlower HospitalComment on above:Performed By: #### [id number] ####[facility] Ultheqty[address] Ashtonneponsit beach hospitalamericoBAT[place], [place] [address]Wztgst Medicine Office/Clinic Noteon 16-46-1335Hayfge Medicine Office/Clinic NoteChief Complaint 2 wk f/u [...] due to her gallbladder. 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 She is able to schedule [...] office today shows: Negat (more content not included)...Flower HospitalComment on above:Result Comment: Electronically Signed By: Ya Wang\.br\Date and Time Signed: 03/11/23 06:06 EST\.br\Electronically Co-Signed By: Annetta Blackburn\.br\Date and Time Co-Signed: 03/09/23 12:22 ESTAmbulatory Visit Summaryon 78-13-9086Wvcfmgejbk Visit Summary YANA CHURCH :2000 Visit Date:03/09/2023 Ambulatory Visit Instructions Your Diagnosis BMI 21.0-21.9, adult Feeling of incomplete bladder emptying Other cystitis with hematuria Hypothyroidism Tests Performed Urnls Dip Stick Auto w/o Microscopy POC 24141 Your Care Team Attending Physician - Ya [...] 10:00 AM EDT With: Ya Wang Where: [facility] Primary CareNormalRecurrent UTI (urinary tract infection), pp_set_radiology_subspecialty, [facility]\.br\ Medicati ons\.br\ What How Much When Why Instructions\.br\ New cephalexin (Keflex 500 mg Cap) 1 Capsules By Mouth 4 times a day Feeling of incomplete bladder emptying Recurrent UTI (urinary tract infection) Duration: 7 Days Pickup at [facility]\.br\ New phenazopyridine (Pyridium 200 mg Tab) 1 Tablets By Mouth 3 times a day Feeling of incomplete bladder emptying Recurrent UTI (urinary tract infection) Duration: 3 Days Pickup at [facility]\.br\ Unchanged levothyroxine (Synthroid 112 mcg Tab) [...] instructions Prior to colonoscopy. \.br\ Pharmacy Information\.br\ [facility]: [address] [place], [place] [id number] [phone]\.br\ Test Results\.br\ Urnls Dip Stick Auto w/o Microscopy POC 74855 (03/09/2023)\.br\ Bilirubin Urine Dipstick - Negative\.br\ Blood Urine Dipstick - Trace-intact\.br\ Glucose Urine Dipstick - Negative\.br\ Ketones UrineDipstick - Negative\.br\ Leukocytes Urine Dipstick - Trace\.br\ Nitrite Urine Dipstick - Negative\.br\ Protein Urine Dipstick - Negative\.br\ Specific Hedrick Urine Dipstick - 1.020\.br\ Urine Appearance Urine [...] including vitamins, herbs, eye drops, creams, and camr-jzf-dmhuuhu medicines.\.br\ ? \.br\ Whether you are or [...] nerves are communicating with your muscles.\.br\ What [facility] Medical CenterPatient Educationon 62-82-6650Hbrzzbg Education Endocrinology Hypothyroidism Hypothyroidism is when the [...] Follow these instructions at home: ? Take kcrn-khb-cbjzoxg and prescription medicines only as told by [...] provider. Document Revised: 03/09/2022 Document Reviewed: 03/09/2022 [employer] Patient Education ? 2022 [employer]. Obstetrics and Gynecology Urinary Tract Infection, Adult A urinary tract infection (UTI) is an infection of any part of the urinary tract. The urinary tractincludes the kidneys, ureters, bladder, and urethra. These organs make, store, and get rid of urinein the body. An upper UTI affects the ureters and kidneys. A lower UTI affects the bl (more content not included)...Flower HospitalPhysician Referralon 84-98-4621Tdkhhidba [id number]#1.00TIFF Flower HospitalProvider Letteron 29-18-4956Dhvdmpoc Letter March 02, 2023 YANA CHURCH [address] [place] [id number] : [address] Clay Waters is know on your insurance & we are able to schedule your EGD & Colonoscopy. Please call us at [phone] at [facility] convenience to schedule your procedure. Thank you for your prompt attention to this matter. Sincerely, [facility] Digestive [facility] 03-02-2023 Reminders From: Erum Gold To: [facility] - Reminders/Recalls; Sent: 11/30/2022 12:34:03 EDT Show up: 11/30/2022 12:34:00 EDT Subject: Ambulatory Reminder [employer] Reminder/Recall Call pt and scheduled EGD and Colonoscopy with Dr. Williamson once [employer] is approved. From: Rusty Alfred ([facility] - Reminders/Recalls) To: Yue Perez; Sent: [...] patient to call office to [facility] Urineon 70-98-5931Zzkuftsb identified Cx Nom (U)Microbiology PROCEDURE: Urine Culture [...] Locations R1: This test was performed at: [facility], [address] [place] [address], [facility] , , NxslvaMsnttvFlower HospitalComment on above:Performed By: #### [id number] ####[facility] [address] [place] [address] Medicine Office/Clinic Noteon 39-81-1424Cicmfj Medicine Office/Clinic NoteChief Complaint UTI symptoms HPI [...] color was orange in appearance due to gqag-kmr-ljethrp meds she was taking, normal urobilinogenpH 5.5 [...] day(s), # 10 cap(s), Refills(s) 0, Pharmacy: [facility], 166, cm, 02/21/23 13:06:00 EST, Height/Length Dosing, 58.6, kg, 02/21/23 13:06:00 EST, Weight Dosing phenazopyridine, 200 mg = 1 tab(s), Oral, TID, X 3 day(s), # 9 tab(s), Refills(s) 0, Pharmacy: [facility], 166, cm, 02/21/23 13:06:00 EST, Height/Length Dosing, 58.6, kg, 02/21/23 13:06:00 EST, Weight Dosing Urine Culture Urnls Dip Stick Auto w/o Microscopy POC 31024 2. Acute cystitis (N30.00: Acute cystitis without hematuria) #1 3. Constipation in female (K59.00: Constipation, unspecified) improving. occasional Colace OTC and Miralax 4. Hemorrhoids (K64.9: Unspecified hemorrhoids) improving, stable 5. Hypothyroidism (E03.9: Hypothyroidism, unspecified) Chronic Stable with 112 mcg daily of Synthroid _ control Weight is stable Asymptomatic- noteable tachycardia today Du (more content not included)...Flower HospitalComment on above:Result Comment: Electronically Signed By: [...] these instructions at home: Medicines ? Take idhf-zmt-vazsxnp and prescription medicines only as told by [...] provider. Document Revised: 10/17/2020 Document Reviewed: 10/17/2020 [employer] Patient Education ? 2022 [employer].[facility] Ambulatory Visit Summaryon 56-39-0684Jdpzavimam Visit Summary LILIANAYANA MONTENEGRO :2000 Visit Date:11/30/2022 [...] 1:00 PM EST With: Ya Wang Where[facility] Primary CareFlower Hospital Gastroenterology Office/Clinic Noteon 81-91-0089Tvbkrziyajxsbwgl Office/Clinic NoteChief Complaint constipation HPI Staff Patient [...] Refill(s) 0, Prior to colonoscopy., [id number], 166, cm, 11/30/22 12:12:00 EDT, Height/Length Dosing, [...] rhinitis Hypoglycemia Hypothyroidism Left (more content not included)...Flower HospitalComment on above:Result Comment: Electronically Signed By: Daniel Grya CNP\.br\Date and Time Signed: 11/30/22 12:32 EDTPatient Educationon 84-92-8535Diwifnv EducationGastroenterology High-Fiber Eating Plan Fiber, also called [...] Bulgur wheat. Millet. Quinoa. Bran muffins. Popcorn. [place]ora wafer crackers. Meats and other proteins [place] beans, kidney beans, and díaz beans. Soybeans. [...] Cream cheese. Sour cream. Fats and oils [place]. Beverages Soft drinks. Other foods Cakes and [...] care provider. Document Revised: (more content not included)...Flower HospitalPre-Certification Formon 33-58-1622Kwg-Certification Form [id number]#1.00CD:127NormalLakehealth Beachwood Medical CenterFawhittier rehabilitation hospital Medicine Office/Clinic Noteon 90-42-0402Zgkjzm Medicine Office/Clinic NoteChief Complaint pt here for [...] visit we encourage proper diet and exercise dtri-axj-gspuxeq MiraLAX or Colace with Preparation H vdvp-znf-niucsjv, bleeding has stopped, blood noted on toilet [...] Rectal exam was performed, I did offer pipe processor but patient declined, external anus is normal [...] length of time on toilet, sitz bath's, fgvp-vwx-tzlhxca medications and suppositories and creams Hydrocortisone lidocaine with applicator gel ordered today to use twice daily Referral for GI referral placed today Ordered: hydrocortisone-lidocaine topical, 1 carmen, Rectal, BID, 60 EA, Refill(s) 1, [facility], 166, cm, 11/11/22 9:28:00 EDT, Height/Length Dosing, 59.4, kg, 11/11/22 9:28:00 EDT, Weight Dosing [facility] Internal Ambulatory Referral 2. Hypothyroidism (E03.9: Hypothyroidism, [...] exercise. Orders: azelastine ophthalmic, (more content not included)...Flower HospitalComment on above:Result Comment: Electronically Signed By: Ya Wang\.br\Date and Time Signed: 11/11/22 09:53 EDTPatient Educationon 28-74-9513Nlbqbyj EducationHigh-Fiber Diet Fiber, also called dietary fiber, [...] ? Talk with a diet and nutrition therapist (dietitian) if you have questions about specific [...] Bulgur wheat. Millet. Quinoa. Bran muffins. Popcorn. [place] wafer crackers. Meats and other proteins [place], kidney, and díaz beans. Soybeans. Split peas. [...] Cream cheese. Sour cream. Fats and oils [place]. Beverages Soft drinks. Other foods Cakes and [...] 03/07/2006 Document Revised: 01/09/2018 Document Reviewed: 01/09/2018 [employer] Games Patient Education ? 2019 [employer]. Gastroenterology H (more content not included)...Flower HospitalAmbulatory Visit Summaryon 79-61-1414Azvqnosvqz Visit Summary YANA CHURCH :2000 Visit Date:10/08/2022 [...] f/u for hypothyroid, weight loss Where: [address] [facility], [facility] [address] [address]- Business (1) You Need to Complete the Following Anti-thyroid Abys, Blood, Routine collect, 10/08/22, Order for future visit, Lab Collect, Weight lossInvalid Interpretation CodeHypothyroidismLakehealth Beachwood Medical CenterAuto Diffon 96-11-6420Mhmydrtiv/100 WBC (Bld)1.1 %Normal0.0-2.0 [facility] CenterComment on above:Order Comment: Order Added by Discern Expert.Performed By: #### 5695577, 35205000, 98089180, 5612782, 3924476 ####[facility] [address] [place] [address] Basophils/Leukocytes Auto (Bld) [Pure # fraction]0.1 E9/LNormal0.0-0.2FSelect Medical OhioHealth Rehabilitation HospitalComment on above:Order Comment: Order Added by Discern Expert.Performed By: #### [id number], 11157362, 61104943, 6234219, 5766172 ####[facility] [address] [place] [address] Eosinophils/100 WBC (Bld)1.2 %Normal0.0-8.0[facility] Medical CenterComment on above:Order Comment: Order Added by Discern Expert.Performed By: #### 6287041, 27733991, 10209983, 9621109, 7448795 ####[facility] Lab [address] [place] [address]Kedqbybnsxr/Leukocytes Auto (Bld) [Pure # fraction]0.1 E9/LNormal0.0-0.5FSelect Medical OhioHealth Rehabilitation HospitalComment on above: Order Comment: Order Added by Discern Expert.Performed By: #### 6614885, 97368726, 72215507, 3974428, 2462924 ####[facility] Lab [address] [place] [address]Agbyemylshj/100 WBC (Bld)41.0 %Normal 14.0-50.0[facility] Medical CenterComment on above:Order Comment: Order Added by Discern Expert.Performed By: #### 6547388, 85376377, 17681906, 6624964, 5946126 ####[address] [address]Alspknggqca/Leukocytes Auto (Bld) [Pure # fraction]2.3 E9/LNormal1.0-4.0 [facility] CenterComment on above:Order Comment: Order Added by Discern Expert.Performed By: #### 3682863, 60911631, 90719111, 1875827, 0274636 ####[address] [address] Monocytes/100 WBC (Bld)5.8 %Normal4.0-14.0[facility] Medical CenterComment on above:Order Comment: Order Added by Discern Expert.Performed By: #### 8685061, 02185434, 23512997, 9818115, 1922770 ####[facility] Lab [address] [place] [address]Jgsrmeodb/Leukocytes Auto (Bld) [Pure # fraction]0.3 E9/LNormal0.2-1.0[facility] Medical CenterComment on above:Order Comment: Order Added by Discern Expert.Performed By: #### 4797413, 46928501, 42914983, 9953789, 9437771 ####[address] [address]Jmcpsryivca/100 WBC (Bld)50.9 %Nwnyxr29.0-75.0 [facility] CenterComment on above:Order Comment: Order Added by Discern Expert.Performed By: #### 9380486, 12406818, 48806595, 6513540, 8981777 ####[address] [address] Neutrophils/Leukocytes Auto (Bld) [Pure # fraction]2.8 E9/LNormal2.0-7.5FSelect Medical OhioHealth Rehabilitation HospitalComment on above:Order Comment: Order Added by Discern Expert.Performed By: #### 2156182, 56962784, 91605705, 6926478, 3651299 ####[address] [address]HRM w/ Auto Diffon 30-91-7062Pbnnfjweoyr distribution width (RBC) [Ratio]12.6 % Goyoxk76.9-14.2FSelect Medical OhioHealth Rehabilitation HospitalComment on above:Performed By: #### 7734755, 93769154, 16857394, 1330202, 7169156 ####[address] [address]Ghhxsjaeiq (Bld) [Volume fraction] 40.4 %Dvrnjh87.0-46.0[facility] Medical CenterComment on above:Performed By: #### 0242903, 68137229, 14321337, 6477098, 0927158 ####[address] [address]Oqgqlwpiat (Bld) [Mass/Vol] 14.1 g/wPVtseap39.0-16.0[facility] Medical CenterComment on above:Performed By: #### 6271433, 40002785, 66051588, 4170534, 1792237 ####[address] [address]KYU (RBC) [Entitic mass]32.1 coHuammn61.0-34.0[facility] Medical CenterComment on above:Performed By: #### 5481374, 50961245, 52844002, 4537143, 4625350 ####[address] [address]VHFS (RBC) [Mass/Vol]34.8 g/dLNormal 31.4-36.0[facility] CenterComment on above:Performed By: #### 6765696, 38361816, 96521315, 3481389, 8859615 ####[facility] Lab [address] [place] [address]MXO (RBC) [Entitic vol]92.1 fLNormal 80.0-100.0[facility] Medical CenterComment on above:Performed By: #### 8426105, 53970667, 07356679, 6680654, 7180206 ####[address] [address]Ooxlevse mean volume (Bld) [Entitic vol]9.1 fLNormal6.4-10.8[facility] Medical CenterComment on above:Performed By: #### 9747421, 79777237, 27120411, 6437673, 3958036 ####[address] [address]Cjuqxgjqv (Bld) [#/Vol]238.0 E9/PFtgmsh820.0-500.0[facility] Medical CenterComment on above:Performed By: #### 7552660, 79521576, 85855060, 3797700, 9612290 ####[address] [address]ZAY (Bld) [#/Vol]4.4 E12/L Normal4.3-5.9[facility] Medical CenterComment on above:Performed By: #### 2335501, 34327469, 30903598, 9200948, 6276112 ####[address] [address]VVU corrected for nucl RBC Auto (Bld) [#/Vol]5.6 E9/LNormal4.0-11.0[facility] Medical CenterComment on above: Performed By: #### 6006770, 58116037, 85267798, 0101128, 1238176 ####[facility] [address] [place], [place] [address]SLKzh 10-08-2022 Albumin [Mass/Vol]4.7 g/dLNormal3.3-5.0[facility] CenterComment on above:Performed By: #### 1276012, 17510220, 22367633, 0339398, 0754764 ####[facility] [address] [place] [address] Albumin/Globulin (S) [Mass conc ratio]1.0Ffuvaj5.1-2.2FSelect Medical OhioHealth Rehabilitation HospitalComment on above:Performed By: #### 7160329, 26972331, 40807167, 3908069, 6884714 ####[facility] [address] [place] [address]VCH [Catalytic activity/Vol]42 Int._Unit/SWpobwh66-16UliserLakehealth Beachwood Medical CenterComment on above:Performed By: #### 2405502, 21649797, 10511845, 8877199, 1778323 ####[facility] [address] [place], [place] [address]JIF No additional P-5'-P [Catalytic activity/Vol]15 Int._Unit/LNormal6-46 [facility] CenterComment on above:Performed By: #### 4672632, 67722136, 19805347, 4456712, 2506780 ####[facility] Lab [address] [place], [place] [address]Eojop gap [Moles/Vol]13 mmol/LNormal6-16 [facility] CenterComment on above:Performed By: #### 9759373, 72329800, 54898819, 2798071, 9260881 ####[facility] Lab [address] [place], [place] [address]SVM [Catalytic activity/Vol]22 Int._Unit/LNormal5-43Fisher Mifflin Medical CenterComment on above:Performed By: #### 4630578, 09391863, 74741522, 6437566, 3844136 ####[facility] [address] [place], [place] [address]Npnjcuywp [Mass/Vol]0.5 mg/dL Normal0.0-1.1FSelect Medical OhioHealth Rehabilitation HospitalComment on above:Performed By: #### 8677779, 23852403, 08489233, 7403192, 5624070 ####[facility] [address] [place], [place] [address]Excrhpd [Mass/Vol]9.4 mg/dLNormal 8.9-11.1FSelect Medical OhioHealth Rehabilitation HospitalComment on above:Performed By: #### 0159277, 41821579, 93239287, 8264764, 9017798 ####[facility] Lab [address] [place], [place] [address]Dpxsclvr [Moles/Vol]107 mmol/LNormal 101-111L[facility] Medical CenterComment on above:Performed By: #### 4194422, 52640585, 70437222, 8069774, 9443002 ####[facility] Lab [address] [place], [place] [address]YQ5 [Moles/Vol]24 mmol/AUcagks06-66 [facility] CenterComment on above:Performed By: #### 8324012, 02746657, 30795890, 0608101, 7067876 ####[facility] Lab [address] [place], [place] [address]Cuytoamrwd [Mass/Vol]0.7 mg/dLNormal 0.5-1.3FSelect Medical OhioHealth Rehabilitation HospitalComment on above:Performed By: #### 0181010, 78550855, 44757854, 4233144, 3576750 ####[facility] Lab [address] [place], [place] [address]Mnfcblfq (S) [Mass/Vol]3.2 g/dLNormal 1.4-4.0[facility] Medical CenterComment on above:Performed By: #### 5897958, 04344741, 06450376, 2247721, 7317608 ####[facility] Lab [address] [place], [place] [address]Ajlkmed [Mass/Vol]105 mg/rDRonkin50-056 [facility] CenterComment on above:Result Comment: If this glucose result represents a fasting glucose, interpretation should refer tothe following reference range: 55-99 mg/dLPerformed By: #### 8510794, 73468969, 31992394, 0079866, 1165501 ####[facility] [address] [place], [place] [address]Amaqridgi [Moles/Vol]3.9 mmol/LNormal3.5-5.3FSelect Medical OhioHealth Rehabilitation HospitalComment on above:Performed By: #### 4291042, 70217598, 13314252, 7192328, 4468957 ####[facility] [address] [place], [place] [address]Qrwqjpl [Mass/Vol]7.9 g/dLHigh6.0-7.8[facility] CenterComment on above:Performed By: #### 5627707, 46085720, 81067035, 3723149, 2247178 ####[facility] [address] [place], [place] [address]Eahbjz [Moles/Vol]140 mmol/RMnhbye408-592QeggcbLakehealth Beachwood Medical CenterComment on above:Performed By: #### 9845735, 74454668, 26007640, 7544946, 8139278 ####[facility] [address] [place], [place] [address]Ouzc nitrogen [Mass/Vol]17 mg/dLNormal5-21[facility] Medical CenterComment on above:Performed By: #### 2177243, 75677624, 56317326, 3411020, 8488993 ####[facility] [address] [place], [place] [address]Wlng nitrogen/Creatinine [Mass ratio]24 No IsrcbOrfx66-57AblhtaLakehealth Beachwood Medical Center Comment on above:Performed By: #### 9037787, 50604344, 73469836, 6966845, 0938860 ####[facility] [address] [address]Rgkpkrz for Treatmenton 37-55-4895Qurxvbx for Treatment [id number]#1.00CD:127NormalMount [facility] 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 Discussed self breast exams and other health [...] and exercise increasing. Patient encouraged to use wqav-iwn-octojzu MiraLAX or Colace, encouraged Preparation H gaxa-hwy-moqmsmm topical treatments if needed. \ Follow-up only if needed. Patient only having minimal complaints 3. Constipation in female (K59.00: Constipation, unspecified) see #3 4. BMI 20.0-20.9, ad (more content not included)...Flower HospitalComment on above:Result Comment: Electronically Signed By: Ya Wang\.br\Date and Time Signed: 10/08/22 16:30 EDTPatient Educationon 87-27-5855Jukmsxh EducationEndocrinology Hypoglycemia Hypoglycemia occurs when the level [...] instructions at home: General instructions ? Take pguq-czl-igweadk and prescription medicines only as told by your health care provider. ? Monitor your blood glucose as told by your health care provider. ? If you drink alcohol: ? Limit how much you have to: ? 0?1 (more content not included)...NormalHolzer Health System With T4fr Reflexon 15-02-6484ICE Qn0.58 m[IU]/LNormal0.34-5.60[facility] CenterComment on above:Performed By: #### 8225259, 25476545, 73280065, 7543650, 9041276 ####[facility] [address] [place], [place] [address]rDYYox 65-22-5226LBK/1.73 sq M.predicted among non-blacks MDRD (S/P/Bld) [Vol rate/Area]124 mL/min/1.73 q1Zsxfcz>=59[address] Agnes HospitalComment on above:Order Comment: Order added by Discern Expert.Result Comment: Chronic kidney disease could be indicated at eGFR's of less than 60 mL/min/1.73m2. K idney failure is indicated at less than 15 mL/min/1.73m2.Performed By: #### 8336987, 32867537, 24892773, 7094765, 8675125 ####[facility] [address] [place], [place] [address]QUN ACOG PANEL 2: 21 to 29on 10-23-2021..NormalPremier Health Miami Valley HospitalComment on above:Performed By: #### CBC #### [facility] [address] [place] [address] Dr. Rima Dinh Gdln ACOG Ixekcpk08-62MemkwlFlhKettering Health PrebleCommclaren oakland on above:Performed By: #### CBC #### [facility] [address] [place] [address] Dr. Rima CharlesDIAGNOSIS:CommentUK Healthcare on above: Result Comment: NEGATIVE FOR INTRAEPITHELIAL LESION OR MALIGNANCY. THIS SPECIMEN WAS RESCREENED PART OF OUR NETWORK SUPPORT MANAGER PROGRAM.Performed By: #### CBC #### [facility] [address] [place] [address] Dr. Rima CharlesMethodology:CommentUK Healthcare on above: Result Comment: This liquid based ThinPrep(R) pap test was screened with the use of an image guided system.Performed By: #### CBC #### [facility] [address] [place] [address] Dr. Rima CharlesNote:CommentUK Healthcare on above:Result Comment: The Pap smear is a screening test designed to aid in the detection of premalignant and malignant conditions of the uterine cervix. It is not a diagnostic procedure and should not be used as the sole means of detecting cervical cancer. Both false-positive and false-negative reports do occur. .Performed By: #### CBC #### [facility] [address] [place] [address] Dr. Rima CharlesPerformed by:CommentUK Healthcare on above: Result Comment: Piter Cagle, Casing Crew Pusher (ASCP)Performed By: #### CBC #### [facility] [address] [place] [address] Dr. Rima Bryson reviewed by:[facility] on above:Result Comment: Hannah Morejon, Supervisory Casing Crew Pusher (ASCP) Performed By: #### CBC #### [facility] [address] [place] [address] Dr. Rima CharlesReflex Criteria:CommentUK Healthcare on above:Result Comment: The HPV DNA reflex criteria were not met with this specimen result therefore, no HPV testing was performed. .Performed By: #### CBC #### [place] [address] [address] Rima CharlesSpecimen adequacy:CommentUK Healthcare on above:Result Comment: Satisfactory for evaluation. Endocervical and/or squamous metaplastic cells (endocervical component) are present. Areas of partially obscuring blood are present.Performed By: #### CBC #### [facility] [address] [place] [address] Dr. Rima Cornell T4on 92-79-9967Coxt T4 [Mass/Vol]1.01 ng/dLNormal0.76-1.46 [facility] on above:Performed By: #### FT4 #### [facility] [address] [place] [address] Dr. Rima BrowerHoagustín 66-94-9731TLO7.997 uIU/mLCritically high0.358-3.740[facility] on above:Performed By: #### TSH #### [facility] [address] [place] [address] Dr. Rima CharlesVAGINITIS/VAGINOSIS DNA PROBEon 11-77-5904Cysbdex speciesNegative NormalNegativeThe [facility] on above:Performed By: #### CBC #### [facility] [address] [place] [address] Dr. Rima Moonerejoba vaginalisNegativeNormalNegativePremier [facility] Comment on above:Performed By: #### CBC #### [facility] [address] [place] [address] Dr. Rima Calvo vaginalisNegativeNormalNegativePremier Health [facility] Comment on above:Performed By: #### CBC #### [facility] [address] [place] [address] Dr. Rima CharlesCHLAMYDIA/GONOCOCCUS FRANSISCO (SWAB/URINE/PAPon 35-13-5711Gpzrmhrrt trachomatis, NAANegativeNormalNegativePremier Health Miami Valley HospitalComment on above: Performed By: #### CBC #### [facility] [address] [place] [address] Dr. Rima CharlesNeisseria gonorrhoeae, NAANegativeNormalNegativePremier Health Miami Valley HospitalComment on above:Performed By: #### CBC #### [facility] [address] [place] [address] Dr. Rima CharlesVAGINITIS/VAGINOSIS DNA PROBEon 52-74-7469Qbzulth speciesNegative NormalNegativePremier Health Miami Valley HospitalComment on above:Performed By: #### VAGINT #### [facility] [address] [place] [address] Dr. Rima Moonerebenedict vaginalisNegativeNormalNegativePremier [facility] Comment on above:Performed By: #### VAGINT #### [facility] [address] [place] [address] Dr. Rima Calvo vaginalisNegativeNormalNegativePremier Health [facility] Comment on above:Performed By: #### VAGINT #### [facility] [address] [place] [address] Dr. Rima Livingston 84-05-8587KIA0.494 uIU/mLNormal0.470-4.680[facility] Miami Valley HospitalComment on above:Performed By: #### CBC #### [facility] [address] [place] [address] Dr. Rima Dougherty RANGESEE [facility] Soin Medical CenterComment on above: Result Comment: <0.34 UIU/ml HYPERTHYROID 0.34-5.60 UIU/ml EUTHYROID >5.60 UIU/ml HYPOTHYROIDPerformed By: #### CBC #### [facility] [address] [address] [address] Rima Barnes MATERNAL FOR SPINA BIFIDAon 32-02-4532PHZ MoM0.98Memorial HospitalComment on above:Performed By: #### AFPMAT #### [facility] [address] [address] [address] Rima Barnes Value36.3 ng/mLNormalPremier Health Miami Valley HospitalComment on above: Performed By: #### AFPMAT #### [facility] [address] [address] [address] Rima Barnes, Serum for Spina BifidaReMartin Memorial Hospital Comment on above:Performed By: #### AFPMAT #### [facility] [address] [address] [address] Rima CurrieSalem Regional Medical CenterComment on above:Result Comment: Alie Moon, Ph.D., [facility] Director . References: Available Upon Request. . Multiples Of Median Cutoffs For AFP Elevations Murphy 2.5 Black 2.8 IDD 2.0 Twins 4.5 Abbreviation Definitions IDD - Insulin Dep Diabetes OSBR - Open Spina Bifida Risk . For further inquiries contact [facility] at [phone].Performed By: #### AFPMAT #### [facility] [address] [address] [address] Rima Pedro Age Collection Date16.0 [facility] Comment on above:Performed By: #### AFPMAT #### [facility] [address] [address] [address] Rima Pedroat, Age Based onLMPNormalPremier Health Miami Valley HospitalComment on above:Result Comment: Recalculations are not recommended when gestational dating by LMP and ultrasound are within 10 days.Performed By: #### AFPMAT #### [facility] [address] [place] [address] Dr. Rima CharlesGrand Lake Joint Township District Memorial HospitalCommclaren oakland on above:Performed By: #### AFPMAT #### [facility] [address] [place] [address] Dr. Rima CharlesInterpretationSalem Regional Medical CenterCommclaren oakland on above: Result Comment: Interpretation: Screen Negative [...] Customer Services to discuss available options. The [employer] recommends amniocentesis be offered to women age 35 and older.Performed By: #### AFPMAT #### [facility] [address] [place] [address] Dr. Rima CharlesMaternahaley Age at EDD23.4 yrMemorial HospitalCommclaren oakland on above:Performed By: #### AFPMAT #### [facility] [address] [place] [address] Dr. Rima Erazo The [facility] SystemCommclaren [facility]land on above: Performed By: #### AFPMAT #### [facility] [address] [place] [address] Dr. Rima CharlesOSBR Risk 1 [id number] HospitalCommclaren oakland on above: Performed By: #### AFPMAT #### [facility] [address] [place] [address] Dr. Rima Meadows.[facility] on above:Performed By: #### AFPMAT #### [facility] [address] [place] [address] Dr. Rima MccoyUniversity Hospitals Parma Medical CenterComment on above: Performed By: #### AFPMAT #### [facility] [address] [place] [address] Dr. Rima Urena Results:NegativeNormalThe Clermont County HospitalComment on above: Performed By: #### AFPMAT #### [facility] [address] [place] [address] Dr. Rima Del Rosario B SURFACE ANTIGEN SCREENon 39-10-9827DOsZt ScreenNegative NormalNegativeThe [facility]ont County HospitalComment on above:Performed By: #### HBSANS #### [facility] [address] [place] [address] Dr. Rima RiosTIS C ANTIBODYon 19-85-4158Idt C Virus Ab<0.7Vjrzdn7.0-0.9 [facility] on above:Result Comment: Negative: < 0.8 Indeterminate: 0.8 - 0.9 Positive: > 0.9 . The CDC recommends that a positive HCV antibody result be followed up with a HCV Nucleic Acid Amplification test (638535).Performed By: #### HCV #### [facility] [address] [place] [address] Dr. Rima Chery 1 AND 2 WITH REFLEXon 38-74-2294FZF Screen 4th Generation wRfxNon-ReactiveNormalNon ReactiveThe [facility] HospitalCommclaren oakland on above: Performed By: #### HIV12 #### [facility] [address] [place] [address] Dr. Rima CharlesRPR QUANTon 32-12-2834Bhrbm Plasma Reagin, QuantNon-Reactive NormalNonRea<1:1[facility] on above:Performed By: #### CBC #### [facility] [address] [place] [address] Dr. Rima MirelesBELLA AB IGGon 34-68-8657Zsviypg Antibodies, IgG2.33 index NormalImmune >0.99[facility] on above:Result Comment: Non- immune <0.90 Equivocal 0.90 - 0.99 Immune >0.99Performed By: #### RUBIGG #### [facility] [address] [address] [address] Rima Sierra AUTO DIFFon 64-96-3978OJFJ #0.0 103/ulNormal0.0-0.1The [facility] Hospitalment on above:Performed By: #### CBC #### [facility] [address] [address] [address] Rima CharlesBasophils/100 WBC (Bld)0.4 %Normal0.2-2.0[facility] Comment on above:Performed By: #### CBC #### [facility] [address] [place] [address] Dr. Rima Fuller #0.0 103/ulNormal0.0-0.7The [facility] County HospitalComment on above: Performed By: #### CBC #### [facility] [address] [place] [address] Dr. Rima Leahyosinophils/100 WBC (Bld)0.6 %Critically low0.9-7.0The [facility] HospitalComment on above:Performed By: #### CBC #### [facility] [address] [place] [address] Dr. Rima Leahyrythrocyte distribution width (RBC) [Ratio]12.0 %Zghmwr46.0-15.0 The [facility] County HospitalComment on above:Performed By: #### CBC #### [facility] [address] [place] [address] Dr. Rima CharlesHematocrit (Bld) [Volume fraction]37.5 %Pqdnsz36.0-48.0The [facility] HospitalComment on above:Performed By: #### CBC #### [facility] [address] [place] [address] Dr. Rima CharlesHemoglobin (Bld) [Mass/Vol]13.2 g/qTLnpzlg95.0-16.0The [facility]ment on above:Performed By: #### CBC #### [facility] [address] [place] [address] Dr. Rima Carreno #0.02 10e3/ulNormal0.00-0.03The [facility] Hospitalment on above:Performed By: #### CBC #### [facility] [address] [address] [address] Rima Carreno %0.3 %Normal0.0-0.5The [facility] HospitalCommclaren oakland on above: Performed By: #### CBC #### [facility] [address] [address] [address] Rima Singleton #1.4 103/ulNormal1.2-3.8The [facility] HospitalCommclaren [facility]land on above:Performed By: #### CBC #### [facility] [address] [place] [address] Dr. Rima Jayhocytes/100 WBC (Bld)20.2 %Critically low20.5-60.0The [facility] HospitalCommclaren oakland on above:Performed By: #### CBC #### [facility] [address] [place] [address] Dr. Rima Lr DIFF REQNONormalThe [facility] County HospitalComment on above: Performed By: #### CBC #### [facility] [address] [place] [address] Dr. Rima Nicholas (RBC) [Entitic mass]33.2 mmJsqbot42.7-34.0[facility] on above:Performed By: #### CBC #### [facility] [address] [place] [address] Dr. Rima Fall (RBC) [Mass/Vol]35.2 g/rSRjntyn62.9-35.2The [facility]ment on above:Performed By: #### CBC #### [facility] [address] [place] [address] Dr. Rima Fall (RBC) [Entitic vol]94.5 yDXgvmox87.0-99.0[facility] on above:Performed By: #### CBC #### [facility] [address] [place] [address] Dr. Rima Grossman #0.4 103/ulNormal0.3-0.8The [facility] HospitalComment on above:Performed By: #### CBC #### [facility] [address] [place] [address] Dr. Rima Wenocytes/100 WBC (Bld)6.1 %Normal1.7-12.0[facility] Comment on above:Performed By: #### CBC #### [facility] [address] [place] [address] Dr. Rima Huston #5.1 103/ulNormal1.4-6.5The [facility] HospitalComment on above:Performed By: #### CBC #### [facility] [address] [place] [address] Dr. Rima Bobutrophils/100 WBC (Bld)72.4 %Gfawmy08.0-75.0The [facility] HospitalComment on above:Performed By: #### CBC #### [facility] [address] [place] [address] Dr. Rima Bradfordlet mean volume (Bld) [Entitic vol]11.2 fLNormal9.5-13.5The [facility] HospitalComment on above:Performed By: #### CBC #### [facility] [address] [place] [address] Dr. Rima CharlesPLT221 103/jqEkhube215-020Bgb [facility] HospitalComment on above: Performed By: #### CBC #### [facility] [address] [place] [address] Dr. Rima CharlesRBC3.97 106/ulCritically low4.20-5.40The [facility] HospitalComment on above:Performed By: #### CBC #### [facility] [address] [place] [address] Dr. Rima CharlesWBC7.1 103/ulNormal4.0-11.0The [facility] HospitalComment on above: Performed By: #### CBC #### [facility] [address] [place] [address] Dr. Rima Cardenas URINEon 66-97-0626NZFWCYE URINECulture Observations: No growthNoKettering Health PrebleComment on above:Performed By: #### CBC #### [facility] [address] [place] [address] Dr. Rima CharlesGLYCOHEMOGLOBIN A1Con 59-50-7404ZDD RECOMMENDATIONADA THERAPEUTIC TARGET 6.0 - 7.0 ACTION SUGGESTED > 7.0NoKettering Health PrebleComment on above:Performed By: #### A1C #### [facility] [address] [place] [address] Dr. Rima CharlesGlucose [Mass/Vol]111 mg/dLMemorial HospitalComment on above:Performed By: #### A1C #### [facility] [address] [place] [address] Dr. Rima CharlesHbA1c (Bld) [Mass fraction]5.5 %Normal<=6.0[facility] Comment on above:Performed By: #### A1C #### [facility] [address] [place] [address] Dr. Rima Escalante BOX TEST PT SEND OUTon 81-76-2393HCSI TO REF LAB12/09/20 NormalPremier Health Miami Valley HospitalCommclaren oakland on above:Performed By: #### CBC #### [facility] [address] [place] [address] Dr. Rima BrowerHoagustín 96-47-2614KHL0.651 uIU/mLNormal0.470-4.680The [facility] HospitalCommclaren oakland on above:Performed By: #### CBC #### [facility] [address] [place] [address] Dr. Rima Dougherty RANGESEE BELOWMemorial HospitalComment on above: Result Comment: <0.34 UIU/ml HYPERTHYROID 0.34-5.60 UIU/ml EUTHYROID >5.60 UIU/ml HYPOTHYROIDPerformed By: #### CBC #### [facility] [address] [place] [address] Dr. Rima CharlesTYPE AND SCREENon 98-29-5724XWWS AND SCREENNegativeNoKettering Health PrebleComment on above:Performed By: #### CBC #### [facility] [address] [address] [address] Rima Butler PREG TVon [id number] PREG TVEXAMINATION: US PREG TV HISTORY: Urine [...] Electronically authenticated by: LILIANE POPE Date: 2020-12-02 09:34[facility] Vital Signs Date TimeVital SignValuePerforming DbudccjhzRwbihsvn16-45-9937 08:39-0500Body mass index (BMI) [Ratio]26.29 kg/i6Shdfm [employer] DO Work Phone: [phone] [place], [place] [address]Auhkipnhcj62-93-4790 08:39-0500Body kynjbq68.67 kgCorey Alliqua Work Phone: [phone] [place], [place] [address]Occyoyvwqh91-09-6388 08:39-0500Diastolic blood vhqneqoq92 mm[Hg][employer] Work Phone: [phone] [place], [place] [address]Grxavtanrc13-78-1120 08:39-0500Systolic blood iuybjuxa694 mm[Hg][employer] Work Phone: [phone] [place], [place] [address]Yagdhlrcyw60-21-2121 08:35-0400Body mass index (BMI) [Ratio]26.71 kg/r5Grqrv Joanna Wavesat Work Phone: [phone] CenterEebfbtgvvy24-40-5744 08:35-0400Body xrarha74.8 kg [employer] Work Phone: [phone] CenterFwvehjaewc92-61-1608 08:35-0400Diastolic blood hftjamxz50 mm[Hg]Santosh Joanna DO Work Phone: [phone] [place], [place] [address]Opyztmwjqv96-24-8492 08:35-0400Systolic blood usxfgfay509 mm[Hg]Santosh Joanna DO Work Phone: [phone] [place], [place] [address]Jnanfsrqel86-26-3881 11:20-0400Body mass index (BMI) [Ratio]25.38 kg/f3Cvwpf Joanna DO Work Phone: [phone] [place], [place] [address]Yjnzyuyczj37-46-4886 11:20-0400Body cnnzuk66.17 kgCorey Joanna DO Work Phone: [phone] [place] [address]-13-2025 11:20-0400Diastolic blood mm[Hg]Santosh Joanna DO Work Phone: [phone] [place], [place] [address]Chbqfogyvy25-12-4153 11:20-0400Systolic blood fwgmgsdi271 mm[Hg]Santosh Joanna DO Work Phone: [phone] [place], [place] [address]809-22-2025 10:23-0400Body mass index (BMI) [Ratio]24.79 kg/m2Amy Brea PA Work Phone: [phone] [place], [place] [address]Udmnkaluyz69-87-7347 10:23-0400Body jadpka06.59 kgAmy Brea PA Work Phone: [phone] [place], [place] [address]Emmhiitood81-44-4772 10:23-0400Diastolic blood yltcshrs16 mm[Hg]Erum Guidry PA Work Phone: [phone] [place], [place] [address]Omaovxijzr28-65-7600 10:23-0400Systolic blood sflodqfh999 mm[Hg]Erum Guidry PA Work Phone: [phone] [place], [place] [address]Lksfpejevq96-33-8644 11:45-0400Body mass index (BMI) [Ratio]23.15 kg/y4Ifryz Joanna DO Work Phone: [phone] [place], [place] [address]Uplsizhidk96-64-9206 11:45-0400Body ecjylz85.1 kg Santosh Joanna DO Work Phone: [phone] [place], [place] [address]Sgpxbymnts78-42-3649 11:45-0400Diastolic blood orrqzzsp87 mm[Hg]Santosh Joanna DO Work Phone: [facility] CenterPdikaobqcy72-80-9123 11:45-0400Systolic blood koakgxbh678 mm[Hg]Santosh Bhaktao DO Work Phone: [phone]08-18-2025 11:51-0400Body iusspu450.1 cmJacklyn Campos MD Work Phone: [phone])[address] [place], [place] 57[address]208-18-2025 11:51-0400Body mass index (BMI) [Ratio]23.03 kg/u1VqeqfbgiJacklyn Campos MD Work Phone: [phone])[address] [place], [place] 57[address]208-18-2025 11:51-0400Body skbqyf36.78 kgJacklyn Campos MD Work Phone: [phone])[address] [place], [place] 5726208-18-2025 11:51-0400Diastolic blood fialodjg53 mm[Hg]Jacklyn Campos MD Work Phone: [phone])[address] [place], [place] 57[address]208-18-2025 11:51-0400Heart rate 94 /minJacklyn Campos MD Work Phone: [phone] [place], [place] 57[address]208-18-2025 11:51-0400Systolic blood tzpghyvn96 mm[Hg]Jacklyn Campos MD Work Phone: [phone])[address] [place], [place] 57[address]207-28-2025 10:13-0400Body mass index (BMI) [Ratio]22.38 kg/m2Erum HAYS Work Phone: [phone] [place], [place] [address]Nrihklwfmd56-76-9507 10:13-0400Body .01 kgErum HAYS Work Phone: [phone] [place], [place] [address]Gltrsqvgaw79-77-6847 10:13-0400Diastolic blood mm[Hg]Erum HAYS Work Phone: [phone] [place], [place] [address]Cvgordpvxj10-63-7092 10:13-0400Systolic blood ksvdyiay765 mm[Hg]Erum HAYS Work Phone: [facility] CenterTcjhptowak48-90-9411 11:10-0400Body mass index (BMI) [Ratio]22.1 kg/u8Gsfqq Joanna DO Work Phone: [phone] [place], [place] [address]Pqtvamscyg14-52-7981 11:10-0400Body djwgyy93.24 kgCorey Joanna DO Work Phone: [phone] [place], [place] [address]Hdqythhcrj80-55-9094 11:10-0400Diastolic blood dbxipbwg78 mm[Hg]Santosh Joanna DO Work Phone: [phone] [place], [place] [address]Dwquihgolb32-63-1548 11:10-0400Systolic blood mm[Hg]Santosh Joanna DO Work Phone: [phone] [place], [place] 79[address]805-30-2025 10:00-0400Body mass index (BMI) [Ratio]22.86 kg/m2[facility]05-30-2025 10:00-0400Body dcksij52.32 kgSaint [facility] Hospital [facility]05-30-2025 10:00-0400Diastolic blood pesnydiy73 mm[Hg][facility]05-30-2025 10:00-0400Systolic blood zneenoyq907 mm[Hg][facility]09-23-2024 14:19-0400Body mass index (BMI) [Ratio]21.15 kg/e4Evflj Joanna DO Work Phone: [phone])[facility] [place], [place] [address]Mzahoegtpq18-48-4329 14:19-0400Body nkximj26.66 kgCorey Joanna DO Work Phone: [phone]-[facility] CenterCgkyjqipfh90-17-7758 14:19-0400Diastolic blood kaybbyfu40 mm[Hg]Santosh Joanna DO Work Phone: [facility] CenterZnkquvphyc86-00-2109 14:19-0400Systolic blood tebpbjyn672 mm[Hg]Santosh Joanna DO Work Phone: [phone] [place], [place] [address]Oaxthkivqq24-45-5952 15:43-0400Blood Pressure Eladia Thornton [phone]-BjmojMagruder Memorial Hospital Rvgg31-51-2170 15:43-0400Diastolic blood jvwqcpwi80 mm[Hg]Ya Thornton [phone]-Cksub[address] [place], [place] [address]205-20-2024 15:43-0400Heart aedm424 /Waqar Thornton 346-7593Ycgulb-Uajko[address] [place], [place] 0700205-20-2024 15:43-0400Respiratory rate18 /Waqar Thornton [phone]-Nkcii[address] [place], [place] 0700205-20-2024 15:43-2787KqW9% (BldA) [Mass fraction]100 %Ya Thornton [address] [place], [place] 1299205-20-2024 15:43-0400Systolic blood ovdgclik309 mm[Hg]Ya Thornton [address] [place], [place] 1299212-20-2023 07:21-0500Blood Pressure LocationYa Thornton [address] [place], [place] 1299212-20-2023 07:21-0500Body fipfuyfwvlc04.52 [degF]Ya Thornton [address] [place], [place] 1299212-20-2023 07:21-0500Diastolic blood zcomrwfv50 mm[Hg]Ya Thornton [address] [place], [place] 1299212-20-2023 07:21-0500Heart rate91 /Waaqr Thornton [address] [place], [place] 1299212-20-2023 07:21-0500Respiratory rate18 /Waqar Thornton [address] [place], [place] 1299212-20-2023 07:21-4638HwK1% (BldA) [Mass fraction]100 %Ya Thornton [address] [place], [place] 1299212-20-2023 07:21-0500Systolic blood hyefyarf703 mm[Hg]Ya Thornton [phone]-TnjsjSt. [facility]12-04-2023 12:53-0500Blood Pressure LocationYa Thornton [phone]-Yybgu[address] [place], [place] 0700212-04-2023 12:53-0500Diastolic blood irmnqhyi55 mm[Hg]Ya Thornton [phone]-Tupby[address] [place], [place] 0700212-04-2023 12:53-0500Heart rrfg716 /Waqar Thornton [phone]-Htfez[address] [place], [place] 0700212-04-2023 12:53-0500Respiratory rate18 /Waqar Thornton [phone]-Zjyuh[address] [place], [place] 0700212-04-2023 12:53-4442DpY2% (BldA) [Mass fraction]99 %Ya Thornton [phone]-Rpxyq[address] [place], [place] 0700212-04-2023 12:53-0500Systolic blood qvozzdrb900 mm[Hg]Ya Thornton [phone]-Ktsoy[address] [place], [place] 0700209-12-2023 12:10-0400Blood Pressure LocationDaniel Gray [phone]-RkfwtBrecksville [facility]09-12-2023 12:10-0400Body aycqqtsjuwo46.52 [degF]Daniel Gray [phone]-GgtwkBrecksville [facility]09-12-2023 12:10-0400Diastolic blood kcugptnu88 mm[Hg]Daniel Gray [phone]-YsiceBrecksville Va [facility]09-12-2023 12:10-0400Heart rate97 /Hans Gray [phone]-BkcfsBrecksville Va [facility]09-12-2023 12:10-0400Systolic blood agzvwfvh632 mm[Hg]Daniel Gray [phone]08-24-2023 09:20-0400Blood Pressure LocationYa Thornton [phone]-Dsctl[address] [place], [place] 0700208-24-2023 09:20-0400Body cgkksiidrrp19.06 [degF]Yasampson Thornton [phone]-Rkwde[address] [place], [place] 0700208-24-2023 09:20-0400Diastolic blood moewnpff01 mm[Hg]Ya Thornton [phone]-Ljasu[address] [place], [place] 0700208-24-2023 09:20-0400Heart rate76 /minEgerald Thornton [phone]-Eyqbk[address] [place], [place] 0700208-24-2023 09:20-7707BhU0% (BldA) [Mass fraction]98 %Yasampson Thornton [phone]-Qafuq[address] [place], [place] 0700208-24-2023 09:20-0400Systolic blood nliggxon777 mm[Hg]Ya Thornton [phone]-Dpktq[address] [place], [place] 0700202-13-2023 14:14-0500Blood Pressure LocationRitu Desai [phone]-Bfrlr[address] [place], [place] 0700202-13-2023 14:14-0500Body .7 [degF]Ritu Desai [phone]-Tbjrg[address] [place], [place] 0700202-13-2023 14:14-0500Diastolic blood xkwrliie27 mm[Hg]Ritu Desai [phone]-Vxwwx[address] [place], [place] 0700202-13-2023 14:14-0500Heart rate71 /minRitu Desai [phone]-Ufksp[address] [place], [place] 0700202-13-2023 14:14-8473YkV7% (BldA) [Mass fraction]98 %Ritu Deasi [phone]-HxgyxOhiohealth [facility] Primary Hvlk27-89-0260 14:14-0500Systolic blood bxfjrikb140 mm[Hg]Ritu Moralesell [phone]-LrujxOhiohealth [facility] Primary Bqte60-47-3880 02:06-0400Body diggdr76.[address] [facility] Ironton CampusComment on above:Performed By: #### AFPMAT #### [facility] [address] [address] [address] Rima Charles Encounters Encounter DateEncounter TypeCare ProviderFacilityStart: 01-28-2025 End: 64-23-7573Dyfndq flowsheetCorey Joanna DO Work Phone: [facility]YNStart: 01-28-2025 End: 66-71-9857Eeshiy flowsheetCorey Joanna DO Work Phone: [facility] [place] [facility]BGYNStart: 01-28-2025 End: 20-74-0688Dvzsnxhf flow sheetCorey Joanna DO Work Phone: [facility] [place] OBGYNComment on above:Third trimester ([facility]); 32 weeks gestation of ([facility]); Thyroid disease; History of prior with IUGR ; Hypothyroidism, unspecified typeStart: 01-28-2025 End: 65-38-2478jsiofhpoujKWOLW FAZIONot AvailableStart: 01-14-2025 End: 95-87-4770Rfcflj flowsheetCorey Joanna DO Work Phone: [facility] [place] [facility]BGYNStart: 01-14-2025 End: 80-99-3758Ipbrss flowsheetCorey Joanna DO Work Phone: [facility] [place] [facility]BGYNStart: 01-14-2025 End: 46-43-2914Bniywike flow sheetCorey Joanna DO Work Phone: [facility] OBGYNComment on above:Third trimester ([facility]); 30 weeks gestation of ([facility])Start: 01-14-2025 End: 87-75-7830rhjwuvwkctBDURH FAZIONot AvailableStart: 20-52-5409pkveoeshgl Martaishmael RickettsmarcusFacility:[facility] PCStart: 12-31-2024 End: 09-16-4629Vmfhbdef flow sheetCorey Joanna DO Work Phone: NOTG [facility] OBGYNComment on above:Third trimester ([facility]); 28 weeks gestation of ([facility])Start: 12-31-2024 End: 66-35-2512uxwtownbxoKKMAX FAZIONot AvailableStart: 12-12-2024 End: 36-79-9016Imtkoxcgx Result EncounterErum HAYS Work Phone: NOPP External Department UnsolicitedStart: 12-12-2024 End: 71-07-7979Dzpljntff Result EncounterErum HAYS Work Phone: NOTH External Department UnsolicitedStart: 12-11-2024 End: 40-65-5164fjjmlciafwJWRNF R [facility] CENTERTaurusMedisunny Woodburn HospitalStart: 12-11-2024 End: 17-10-8334Hqdmzdtih Result EncounterErum HAYS Work Phone: NOWW External Department UnsolicitedStart: 12-11-2024 End: 34-04-7677Lojyzkvsp Result EncounterErum HAYS Work Phone: NOPY External Department UnsolicitedStart: 12-10-2024 End: 01-28-6255Jrzfby flowsheetErum HAYS Work Phone: [facility] [place] [facility]BGYNStart: 12-10-2024 End: 26-78-5723Zkiret oliviaheetErum HAYS Work Phone: [facility] [place] [facility]BGYNStart: 12-10-2024 End: 53-40-5217Veuvytyt flow sheetErum HAYS Work Phone: NOJU [place] OBGYNComment on above:Size of fetus inconsistent with dates in second trimester ([facility]) (Primary Dx); Second trimester ([facility]); 25 weeks gestation of ([facility]); Diabetes mellitus screeningStart: 12-10-2024 End: 63-50-3068jjkkpxjyouRFT RAMFORTINONot AvailableStart: 11-27-2024 End: 85-68-9795wguetrpvavVMBPT R [facility] HospitalStart: 11-20-2024 End: 32-59-3468hhmvnfdmjsLMNZI R [facility] HospitalStart: 11-12-2024 End: 68-01-9999Pzmohr flowsheetCorey Joanna DO Work Phone: noms [place] OBGYNStart: 11-12-2024 End: 82-70-7712Tvimjp flowsheetCorey Joanna DO Work Phone: [facility]BGYNStart: 11-12-2024 End: 79-19-9829Lryooujb flow sheetCorey Joanna DO Work Phone: noms [facility] OBGYNComment on above:Hypothyroidism, unspecified type (Primary Dx); Second trimester ([facility]); 21 weeks gestation of ([facility]); Vaginal discharge; STD exposureStart: 11-12-2024 End: 33-44-0924murxgqyzceDVZEK FAZIONot AvailableStart: 11-07-2024 End: 25-37-2252Yjhatfzzs Result EncounterCorey Joanna DO Work Phone: noms External Department UnsolicitedStart: 11-07-2024 End: 98-82-8895Gqioqdzph Result EncounterCorey Joanna DO Work Phone: noms External Department UnsolicitedStart: 11-06-2024 End: 40-47-4185Itlndb Sesar Smith RNMaternal- Medicine at [facility] HospitalComment on above: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 trimester (Primary Dx); History of prior with IUGR ; History of premature rupture of membranesStart: 11-05-2024 End: 97-31-4058Jruyfb consultation new/estab patient 60 Jesus Campos MD Work Phone: [phone]-Xflpa [facility] Comment on above:20 weeks gestation of (Primary Dx); Low-lying placenta; 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 trimester; History of prior with IUGR ; Family history of autism; History of gestational diabetes in prior , currently ; History of prior with short cervix, currently ; History of premature rupture of membranesStart: 11-05-2024 End: 97-94-5764rorsciheduJDKCN [facility] HospitalStart: 10-15-2024 End: 21-06-6344Lsykkx flowsLizzie HAYS Work Phone: [facility]oms [facility]BGYNStart: 10-15-2024 End: 50-98-9141Xetljd David HAYS Work Phone: NOFE [place] OBGYNStart: 10-15-2024 End: 76-22-4463Ojvwigqfd Result EncounterErum HAYS Work Phone: noms External Department UnsolicitedStart: 10-15-2024 End: 55-77-6429Zegdsngg flow Mahamed HAYS Work Phone: NOME [facility] OBGYNComment on above:Second trimester ([facility]); 17 weeks gestation of ([facility])Start: 10-15-2024 End: 28-66-1535lukojnbqsoMKT RAMEYNot AvailableStart: 10-02-2024 End: 23-17-9939Xhabxouwg Result EncounterCorey Joanna DO Work Phone: noms External Department UnsolicitedStart: 10-02-2024 End: 68-77-8722Bfjukfnvk Result EncounterCorey Joanna DO Work Phone: noms External Department UnsolicitedStart: 09-24-2024 End: 90-90-4174Vlaos Rob Campos MD Work Phone: [phone]-Swslb [facility] Start: 09-24-2024 End: 70-03-6234Giwyxapvj Result EncounterCorey Joanna DO Work Phone: noms External Department UnsolicitedStart: 09-24-2024 End: 06-46-0626Qvbuabcmy Result EncounterCorey Joanna DO Work Phone: noms External Department UnsolicitedStart: 09-20-2024 End: 73-41-1185Vfnmhz Kashif Gutierrez RNMaternal- Medicine at [facility] HospitalComment on above:Thyroid disease affecting (Primary Dx); History of prior with IUGR newbornStart: 09-17-2024 End: 52-83-0010Zcrlif flowsheetCorey Joanna DO Work Phone: noms BCP OBStart: 09-17-2024 End: 20-17-0842Dmcqsg flowsheetCorey Joanna DO Work Phone: noms BCP OBStart: 09-17-2024 End: 65-78-2039uhrmeywqtbFLJWI FAZIONot AvailableStart: 09-17-2024 End: 18-69-2923Rlhfwrgp flow sheetCorey Joanna DO Work Phone: noms BCP OBComment on above:13 weeks gestation of ([facility]); Second trimester ([facility]); Thyroid disease ; History of prior with IUGR ; Diabetes mellitus screeningStart: 09-12-2024 End: 41-69-0767Muirmkatx Result EncounterCorey Joanna DO Work Phone: noms External Department UnsolicitedStart: 09-12-2024 End: 81-84-0614Geblakpyg Result EncounterCorey Joanna DO Work Phone: noms External Department UnsolicitedStart: 08-21-2024 End: 61-16-0339Rwkhdrgxg Result EncounterCorey Joanna DO Work Phone: NOMS External Department UnsolicitedStart: 08-21-2024 End: 77-58-3150Ejzowzvqr Result EncounterCorey Joanna DO Work Phone: NOMS External Department UnsolicitedStart: 08-17-2024 End: 42-79-2164Bkrefx outpatient visit 5 minutesNoms Bcp Ob Joanna NurseNOMS BCP OBComment on above:GA: 5i0lFmmjq: 08-17-2024 End: 28-05-6636ptesbyeyiaMRREZ FAZIONot AvailableStart: 07-09-2024 End: 86-23-6601fqvamlacokQgmuivEric AlmanzarFacility:[facility] PCStart: 07-05-2024 End: 93-88-0040zeettsklidHjhlk J SosinskiFacility:[facility] PCStart: 07-04-2024 End: 44-43-3228mxsqmkifluQnxdljEric AlmanzarFacility:FTMCStart: 07-04-2024 End: 73-91-1975Brcrjnp encounter Patsy Almanzar [facility] Start: 05-14-2024 End: 83-40-8037atdvarfryjPCWZEC E COSTINAkron [facility]'s [facility] Hospitaltart: 05-14-2024 End: 88-08-3221Xuonwqrjse hospital visit by Krys Jurado MD Work Phone: [facility] LabComment on above:Family history of autismStart: 12-12-2023 End: 59-13-9193Rxptya flowsheetCorey Joanna DO Work Phone: [facility] BCP OBStart: 12-12-2023 End: 42-59-3172Mhikvw flowsheetCorey Joanna DO Work Phone: [facility] B[facility] OBStart: 12-12-2023 End: 86-47-1038Rzvhiunvs Result EncounterCorey Joanna DO Work Phone: noMS External Department UnsolicitedStart: 12-12-2023 End: 74-29-9981Gonuyba encounter procedureCorey Joanna DO Work Phone: [facility] Work Phone: Start: 12-12-2023 End: 21-68-1758Vcztnxfn preventive med est patient 18-39 yrsCorey Joanna DO Work Phone: NOAU BCP OBComment on above:Well woman exam with routine gynecological examStart: 09-07-2023 End: 81-36-1619wsyybccwoeTuzclwzmw L ClarkFacility:FTMCStart: 09-07-2023 End: 19-68-1081Acveczy encounter procedureYa Thornton [facility] Start: 08-08-2023 End: 29-51-3795xmbbczaydyFmarxqsij L ClarkFacility:[facility] PCStart: 08-08-2023 End: 40-25-9811Ypijnfa encounter Rosina Thornton [phone]-RlkivOhiohealth [facility] Start: 07-12-2023 End: 39-79-6330ijyptngezoGCHCTDGT E PERRYFacility:EU ueStart: 07-12-2023 End: 27-75-2432Ifznfer encounter procedureJENNIFER E SUKH [facility]ue start: 05-16-2023 End: 74-45-9270xrseiwlxskWxfodfobs L ClarkFacility:FTMCStart: 05-16-2023 End: 54-23-8099rmnzjfbbymMexuqdiir L ClarkFacility:[facility] PCStart: 04-01-2023 ambulatoryYa ThorntonFacility:EU BellevueStart: 03-24-2023 End: 03-38-3477rdzxndjqvjTmrzmgkqd L ClarkFacility:FTMCStart: 03-24-2023 End: 43-89-0640Hpjxdza encounter procedureYa Thornton [facility] Start: 03-22-2023 End: 00-62-2069tbcxalngthCuvyjesgh L ClarkFacility:FTMCStart: 03-22-2023 End: 00-94-6385Lrxftrl encounter procedureYa Thornton [facility] Start: 03-09-2023 End: 44-96-3117Ecw Drop offYa Thornton [facility] start: 03-09-2023 End: 82-39-4812oubwrcvasyZxqilbttf L ClarkFacility:FTMCStart: 03-09-2023 End: 79-75-8517Qzmghfs encounter procedureYa Thornton [phone]-BekkiOhiohealth [facility] Start: 02-21-2023 End: 49-54-3488Edx Drop offYa Thornton [facility] Start: 02-21-2023 End: 20-72-0123kdkpunhhcjGxpnbovqt L ClarkFacility:FTMCStart: 02-21-2023 End: 75-85-6063Jsbofwp encounter procedureYa Thornton [phone]-IpjaxOhiohealth [facility] Start: 11-30-2022 End: 21-17-7986kijryujtduZmob A SteinmetzFacility:[facility] DHStart: 11-30-2022 End: 35-22-8272Dpwnnbn encounter procedureDaniel Gray [phone]-UvamtOhiohealth [facility] Dig[facility] Start: 41-74-6236wkojhopxfvYigsvmwgn Clark Facility:[facility] DHStart: 11-11-2022 End: 13-32-4542muyztxblcbLwhguhozv L ClarkFacility:[facility] PCStart: 11-11-2022 End: 15-88-1955Uqqsdwd encounter procedureYa Thornton [phone]-IxyjkOhiohealth [facility] Start: 10-08-2022 End: 67-74-5779ntwntnwommIihtxrwki L ClarkFacility:MCStart: 10-08-2022 End: 03-51-7623ooitezrnhpIftnglwlt L ClarkFacility:[place] PCStart: 05-03-2022 End: 11-54-7696Yjqjfgf encounter procedureRitu Desai [phone]-QhposOhiohealth [facility] Start: 10-19-2021 End: 83-29-0206fkcvpqzqowZA SANTOSH FAZIOFacility:S8Ftmxs: 10-17-2021 End: 09-25-8176ihttjyahhyXF SANTOSH FAZIOFacility:K7Wagaf: 14-28-3977axasdgyhreBY SANTOSH FAZIOFacility:D2Urezs: 07-13-2021 End: 78-18-2105axsqljvjlqKR DOCTOR MISCFacility:Q9Xftdc: 05-06-2021 End: 63-87-7459klndsgkrncNZ ERASMO KARASIKFacility:U1Jzsol: 02-24-2021 End: 11-65-9018kmttdiemqzFK SANTOSH FAZIOFacility:H1Kkjgb: 01-13-2021 End: 31-79-0355ixslvwxwbaTZ SANTOSH FAZIOFacility:S8Pvhys: 12-09-2020 End: 94-14-9192wdkflakjfmMD SANTOSH FAZIOFacility:V4Ekkvj: 12-02-2020 End: 00-95-0822xvmmxdrzscIA SANTOSH FAZIOFacility:H1 Procedures DateProcedureProcedure DetailPerforming ClinicianStart: 89-74-8365Vftwd dip stick/tablet rgnt non-auto w/o micrscpCorey Joanna DO Work Phone: Start: 23-89-2330Lqqsn dip stick/tablet rgnt non-auto w/o micrscpAmy Brea HAYS Work Phone: Start: 75-64-9464Inblx dip stick/tablet rgnt non-auto w/o micrscpCorey Joanna DO Work Phone: Start: 63-82-7922BFPUGPK TOLERANCE 3 HOURAmy Brea HAYS Work Phone: Start: 11-61-9883CGE CBC WITH AUTO DIFFAmy Brea HAYS Work Phone: Start: 34-34-3278Dickj dip stick/tablet rgnt non-auto w/o micrscpAmy Brea HAYS Work Phone: Start: 52-19-6966Vxjgs dip stick/tablet rgnt non-auto w/o micrscpCorey Joanna DO Work Phone: Start: 10-54-5846ETL THYROID STIM HORMONECorey Joanna DO Work Phone: Start: 08-25-2495TDI, SERUM, OPEN SPINA BIFIDAAsusanne HAYS Work Phone: Start: 68-36-8842Ezyfh dip stick/tablet rgnt non-auto w/o micrscpCorey Joanna DO Work Phone: Start: 22-14-7313DLXLBOJ 1 HOURCorey Joanna DO Work Phone: Start: 10-58-2284SHR MISCELLANEOUS TESTCorey Joanna DO Work Phone: Start: 28-44-4165ESS MISCELLANEOUS TESTCorey Joanna DO Work Phone: Start: 83-35-2578Qpeiccykbarry Campos MD Work Phone: Start: 32-11-0660ALM W Auto Differential panel - Blood Santosh R Joanna DO Work Phone: Start: 39-70-5335Opza scrn 1+ class nonchromoNot In System Ref ProvStart: 06-46-2559Qajlyalorg glycosylated y5dOyuok R Joanna DO Work Phone: Start: 99-84-6985Gypfxgloq c antibodyNot In System Ref ProvStart: 73-02-6810CGF 1&2 AB/AG SCREEN (P24 AG)Not In System Ref ProvStart: 20-75-2481Jfpf ia hepatitis b surface antigenNot In System Ref ProvStart: 02-08-4641YYHZCKLC TOTAL(UNKNOWN SYPHILIS STATUS)Not In System Ref ProvStart: 87-53-4683XGEE AND SCREENNot In System Ref ProvStart: 87-31-0024WTA CBC WITH AUTO DIFFCorey JoannaKingsoft Network Science Work Phone: Start: 08-17-2024 End: 36-43-7818Hpwvm dip stick/tablet rgnt non-auto w/o micrscpCorey JoannaKingsoft Network Science Work Phone: Start: 76-20-4351ECC,APTIMA HPV,AGE GDLNCorey JoannaKingsoft Network Science Work Phone: Start: 58-57-9665Jjtei depression screening assessment Jacklyn Campos MD Work Phone: None (qualifier value)Ritu Desai Plan of Treatment DateCare ActivityDetailAuthorStart: 06-12-0948DTpB,Tdap and Td Vaccines (8 - Td or Tdap)DTaP,Tdap and Td Vaccines (8 - Td or Tdap)[facility] HospitalFLIP4NEW SystemStart: 11-06-2025 End: 86-08-2517OT MFM with or without consultUS MFM with or without consult Imaging Routine 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 trimester History of prior with IUGR History of premature rupture of membranes Expected: 11/06/2025 (Approximate), Expires: 11/06/2025[facility] Work Phone: comment on above:Expected: 11/06/2025 (Approximate), Expires: 11/06/2025Start: 08-79-5758Lnwdi BMI ScreeningAdult BMI Screening [facility] SystemStart: 23-53-6439Grcrbzy ScreeningTobacco Screening [facility] SystemStart: 02-13-2025 End: 52-69-9335Qzrcjoi encounter gwyrrnexd29/26/2025 10:50 AM EST Routine [facility] [address] [id number] Santosh Marshall DO [address] [place] [address] [facility] [place] [facility]BGYNStart: 02-04-2025 End: 51-31-4533Mmmmjjflvjkz / ancillary services wlfnmezoyq76/17/2025 8:00 AM EST Ancillary Procedure [facility] [address] [address] [facility] [place] [facility]BGYNStart: 01-28-2025 End: 63-54-9880QZ biophysical profile w non stress testUS biophysical profile w non stress test Imaging Routine Thyroid disease History of prior with IUGR Hypothyroidism, unspecified type Expected: 01/28/2025 (Approximate), Expires: 07/28/2025[facility] Work Phone: comment on above:Expected: 01/28/2025 (Approximate), Expires: 07/28/2025Start: 01-28-2025 End: 53-84-2761BQ for pregnancyUS OB follow up transabdominal approach Imaging Routine Thyroid disease History of prior with IUGR Hypothyroidism, unspecified type Expected: 01/28/2025, Expires: 05/28/2025NOMS HealthcareComment on above:Expected: 01/28/2025, Expires: 05/28/2025Start: 01-28-2025 End: 88-44-1913Agwbpyz encounter vdoeeemjz52/10/2025 8:30 AM EST Routine [facility] [address] [place], [id number] Santosh Marshall, DO [address] [place] [address] ArrivedNOMS [place] OBGYNComment on above:ArrivedStart: 01-14-2025 End: 72-57-3931Snyygce encounter procedureNOMS Augustina OBGYNComment on above: ArrivedStart: 01-01-2025 End: 43-63-8147Fpdpfae encounter procedureNOMS BCP OBStart: 12-31-2024 End: 49-46-1461Rgncnwo encounter mrueqbkbc64/13/2025 11:00 AM EDT Routine [facility] [address] [place] [address] Santosh Marshall, DO [address] [place] [address] [facility] [place] [facility]BGYNStart: 12-31-2024 End: 61-29-0660Pomfvgifasld / ancillary services ukloubixea06/13/2025 10:30 AM EDT Ancillary Procedure [facility] [address] [place] [address] [phone] [facility]BGYNStart: 12-17-2024 End: 73-34-6532Jtkraey encounter ywdqhkuzr81/29/2025 3:00 PM EDT Office Visit [facility] [address] [place] [address] Santosh Marshall, [address] [place] [address] NOM[facility] BCP OBStart: 12-11-2024 End: 24-58-1423Yjioaxi encounter yfyjljdqb08/23/2025 2:15 PM EDT Appointment [facility] - Ultrasound [address] [place] [address] [phone] County Community Hospital - UltrasoundStart: 12-10-2024 End: 18-19-8671PEM panel - Blood by Automated countCBC Lab Routine Diabetes mellitus screening Expected: 12/10/2024 (Approximate), Expires: 12/10/2025[facility] Work Phone: comment on above:Expected: 12/10/2024 (Approximate), Expires: 12/10/2025Start: 12-10-2024 End: 15-22-1507Geyhbulwkmp of glucose 1 hour after glucose challenge for glucose tolerance testGlucose tolerance, 1 hour Lab Routine Diabetes mellitus screening Expected: 12/10/2024 (Approximate), Expires: 12/10/2025[facility] HealthcareComment on above:Expected: 12/10/2024 (Approximate), Expires: 12/10/2025Start: 12-10-2024 End: 95-26-5234ZO for pregnancyUS OB follow up transabdominal approach Imaging Routine Size of fetus inconsistent with dates in second trimester ([facility]) Expected: 12/10/2024, Expires: 04/11/2025[facility] HealthcareComment on above: Expected: 12/10/2024, Expires: 04/11/2025Start: 12-10-2024 End: 66-79-5808Ctypbxz encounter procedureNOMS [place] OBGYNComment on above: ArrivedStart: 11-27-2024 End: 37-61-1513Xgmojpr encounter bqivxfaef43/09/2025 3:15 PM EDT Appointment [facility] - Ultrasound [address] [place] [address] [phone] County Memorial Hospital - UltrasoundStart: 11-20-2024 End: 96-26-7637Lkdtjvz encounter banpwmgil00/02/2025 3:45 PM EDT Appointment [facility] [address] [place] [address] [phone] Hospital US ImagingStart: 11-19-2024 Influenza vaccinationInfluenza VaccineScotland Memorial Hospitaltart: 11-12-2024 End: 20-16-7348Ucmmtjo encounter procedureUMESH [place] OBGYNComment on above: ArrivedStart: 11-05-2024 End: 13-08-0193Ytbpxty encounter procedureKettering Health [facility] Campus US ImagingStart: 10-21-2024 End: 00-16-4207MJ MFM with or without consultUS [facility] with or without consult Imaging Routine Thyroid disease affecting History of priorpregnancy with IUGR Expected: 10/21/2024 (Approximate), Expires: 09/20/2025 [facility] Work Phone: comment on above:Expected: 10/21/2024 (Approximate), Expires: 09/20/2025Start: 10-15-2024 End: 92-10-7026Flpvd fetoprotein, maternalAlpha fetoprotein, maternal Lab Routine 17 weeks gestation of ([facility]) Expected: 10/15/2024 (Approximate), Expires: 12/16/2024[facility] Work Phone: comment on above:Expected: 10/15/2024 (Approximate), Expires: 12/16/2024Start: 10-15-2024 End: 42-45-0309Zvaquux encounter procedureNOMS CASSANDRA OBComment on above:Arrived Start: 09-17-2024 End: 02-04-4386Jsgskwgtltb of glucose 1 hour after glucose challenge for glucose tolerance testGlucose tolerance, 1 hour Lab Routine Diabetes mellitus screening Expected: 09/17/2024 (Approximate), Expires: 09/17/2025[facility] Work Phone: comment on above:Expected: 09/17/2024 (Approximate), Expires: 09/17/2025Start: 09-17-2024 End: 35-35-2372Gwyligq encounter dexdvhtpp90/30/2025 10:50 AM EDT Routine [facility] [address] [place] [phone] Santosh Marshall, DO [address] [place] [address] NOM[facility] BCP OBStart: 08-17-2024 End: 98-09-2654VUG/RhABO/Rh Lab Routine Missed menses , unspecified gestational age Expected: 08/17/2024 (Approximate), Expires: 08/17/2025[facility] HealthcareComment on above:Expected: 08/17/2024 (Approximate), Expires: 08/17/2025Start: 08-17-2024 End: 48-31-8612Pwkiy type and Indirect antibody screen panel - BloodType and screen Lab Routine Missed menses , unspecified gestational age Expected: 08/17/2024 (Approximate), Expires: 08/17/2025[facility] HealthcareComment on above:Expected: 08/17/2024 (Approximate), Expires: 08/17/2025Start: 08-17-2024 End: 78-92-5338Vlujp of abuse panel - Urine by Screen methodRapid drug screen, urine Lab Routine , unspecified gestational age Encounter for supervision of normal first in first trimester Expected: 08/17/2024 (Approximate), Expires: 08/17/2025[facility] HealthcareComment on above:Expected: 08/17/2024 (Approximate), Expires: 08/17/2025Start: 08-09-2024 End: 51-90-1553EK Pelvis transvaginalUS OB transvaginal Imaging Routine Missed menses Expected: 08/09/2024, Expires: 11/09/2024[facility] Work Phone: comment on above:Expected: 08/09/2024, Expires: 11/09/2024Start: 09-79-5176UFQHO-19 ( season)COVID-19 ( season)[facility]: 31-17-3355DUX (#1)FLU (#1)[facility] Camp[facility]art: 32-10-7411Cvhwkhpliq ScreeningDepression Screening [facility] SystemStart: 43-96-8338vmkqqprzduHlsdclhyqnOhqnkchg:O1Nbqrz: 73-89-0871Fibmttesgaj observation [Identifier] in Cervix by Cyto stainPap Smear [facility] Campustart: 35-93-8470Joqarvkca for malignant neoplasm of cervixPap SmearScotland Memorial Hospitaltart: 78-68-8543Sopewbiab B (1 of 3 - 19+ 3-dose series)Hepatitis B (1 of 3 - 19+ 3-dose series)[facility] Start: 02-54-3418Jzmjn BMI ScreeningAdult BMI [facility] Start: 87-75-8300CbvL (1 of 2 - MenB 2-Dose Series Bexsero)MenB (1 of 2 - MenB 2-Dose Series Bexsero)[facility]: 52-97-9483BFQ (1 - 3-dose series)HPV (1 - 3-dose series)[facility]: 2011 Varicella (1 of 2 - 13+ 2-dose series)Varicella (1 of 2 - 13+ 2-dose series) [facility]: 25-21-8365Hizkduu ScreeningTobacco Screening [facility]: 34-94-8673Hdortpn Diphtheria and Pertussis Vaccines (1 - Tdap)Tetanus Diphtheria and Pertussis Vaccines (1 - Tdap)[facility]: 14-05-7522PVY (1 of 1 - Standard series)MMR (1 of 1 - Standard series)[facility] CenterB[facility] identified in Urine by Culture Urine culture Microbiology Routine Missed menses Ordered: 08/17/2024[facility] HealthcareComment on above:Ordered: 08/17/2024BC W Auto Differential panel - BloodCBC and differential Lab Routine Missed menses , unspecified gestational age Ordered: 08/17/2024[facility] HealthcareComment on above:Ordered: 08/17/2024HLAMYDIA TRACHOMATIS (GENITO/STI)CHLAMYDIA TRACHOMATIS (GENITO/STI) Lab Routine STD exposure Ordered: 11/12/2024[facility] HealthcareComment on above: Ordered: 11/12/2024ytology Cervical or vaginal smear or scraping studyPap Smear Pathology and Cytology Routine Well woman exam with routine gynecological exam Ordered: 12/12/2023[facility] Healthcare Work Phone: comment on above:Ordered: 12/12/2023 End: 41-78-6073DRZ Extraction and [facility] Work Phone: Comment on above:1 Occurrences starting 05/14/2024 until 05/14/2024, 1 completedHemoglobin A1c/Hemoglobin.total in BloodHemoglobin A1c Lab Routine Missed menses , unspecified gestational age Ordered: 08/17/2024[facility] HealthcareComment on above:Ordered: 08/17/2024Hepatitis B virus surface Ag [Presence] in Serum or Plasma by ImmunoassayHepatitis B surface antigen Lab Routine Missed menses , unspecified gestational age Ordered : 08/17/2024[facility] HealthcareComment on above:Ordered: 08/17/2024Hepatitis C virus Ab [Presence] in Serum or Plasma by ImmunoassayHepatitis C antibody Lab Routine Missed menses , unspecified gestational age Ordered: 08/17/2024[facility] HealthcareComment on above:Ordered: 08/17/2024HIV-1/HIV-2 antigen/antibody combination immunoassayHIV-1 and HIV-2 antibodies Lab Routine Missed menses , unspecified gestational age Ordered: 08/17/2024[facility] HealthcareComment on above:Ordered: 08/17/2024Neisseria gonorrhoeae DNA [Presence] in Unspecified specimen by FRANSISCO with probe detectionNeisseria gonorrhea DNA probe, direct Lab Routine STD exposure Ordered: 11/12/2024[facility] HealthcareComment on above:Ordered: 11/12/2024Reagin Ab [Presence] in Serum by RPRRPR Lab Routine Missed menses , unspecified gestational age Ordered: 08/17/2024[facility] HealthcareComment on above:Ordered: 08/17/2024Rubella antibody, IgGRubella antibody, IgG Lab Routine Missed menses , unspecified gestational age Ordered: 08/17/2024 [facility] HealthcareComment on above:Ordered: 08/17/2024SURESWAB(R) ADVANCED VAGINITIS PLUS, TMASURESWAB(R) ADVANCED VAGINITIS PLUS, TMA Pathology and Cytology Routine Vaginal discharge Ordered: 11/12/2024[facility] Healthcare Work Phone: comment on above:Ordered: 11/12/2024Thyrotropin [Units/volume] in Serum or PlasmaTSH Lab Routine Missed menses , unspecified gestational age Encounter for supervision of normal first in first trimester Ordered: 08/17/2024[facility] HealthcareComment on above:Ordered: 08/17/2024 End: 79-06-1407Jwimptnpdrr [Units/volume] in Serum or PlasmaTSH Lab Routine Hypothyroidism, unspecified type 9 Occurrences starting 11/12/2024 until 11/12/2025[facility] Healthcare Work Phone: comment on above:9 Occurrences starting 11/12/2024 until 11/12/2025US Pelvis transvaginalUS OB transvaginal Imaging Routine Missed menses 08/17/2024 9:27 AM [facility] Immunizations Immunization DateImmunizationNotesCare NjqvgkadAeczrjah28-24-8731gxmvdyp toxoid, reduced diphtheria toxoid, and acellular pertussis vaccine, adsorbedNancyzabemonty Thornton [phone]-MouttSt. Mary'S Medical Center08-02-2016 meningococcal B vaccine, fully recombinantNancyzabeth Norberto [phone]-GdnpwSt. Mary'S Medical Center06-27-2016 meningococcal ACWY vaccine, unspecified formulationNancyzabemonty Thornton [phone]-NiudfSt. Mary'S Medical Center06-27-2016 meningococcal B vaccine, fully recombinantNancyzabeth Norberto [phone]-FcrrkSt. Mary'S Medical Center04-04-2011 meningococcal ACWY vaccine, unspecified formulationNancyzabeth Norberto [phone]-BpeulSt. Mary'S Medical Center04-04-2011 tetanus toxoid, reduced diphtheria toxoid, and acellular pertussis vaccine, adsorbedElizabeth Norberto [phone]-WmjplSt. Mary'S Medical Center11-12-2009 influenza virus vaccine, unspecified formulationJacklyn Campos MD Work Phone: [phone] [place], [place] 6206007-28-2004DTaP, unspecified formulationElizabeth Norberto [phone]-FlcejSt. Mary'S Medical Center07-28-2004 measles, mumps and rubella virus vaccineElizadaniel Thornton [phone]-HolhdSt. Mary'S Medical Center07-28-2004 poliovirus vaccine, unspecified formulationElisampson Thornton [phone]-Fpttu[address] [place], [place] 0700211-15-2000DTaP, unspecified formulationElizadaniel Thornton [phone]-Zvffg[address] [place], [place] 0700211-08-1999 measles, mumps and rubella virus vaccineElizabemonty Thornton [phone]-Vdnqu[address] [place], [place] 0700211-08-1999 varicella virus vaccineElizadaniel Thornton [phone]-Wufyi[address] [place], [place] 0700207-23-1999DTaP, unspecified formulationElisampson Thornton [phone]-Czpxu[address] [place] [address] Primary Fdxz01-99-8315DVyA, unspecified formulationElizadaniel Thornton [phone]-Lkfoz[address] [place] [address] Primary Kzrn39-45-7013WCtC, unspecified formulationYa Thornton [phone]-Anfxq[address] [place], [place] 0700210-31-1998 hepatitis B vaccine, pediatric or pediatric/adolescent dosageElizadaniel Thornton [phone]-YyhviOhiohealth Arthur [facility] Primary CareNEGATED: Highlighted row has not occurred!28-77-2485clpsfenvn virus vaccine, unspecified formulationDaniel Gray [phone]-OhrcnOhiohealth [facility] Digestive HealthNEGATED: Highlighted row has not occurred!00-63-1712jcnbjskbi virus vaccine, unspecified formulationRitu Desai [phone]-PjgcuOhiohealth Arthur [facility] Primary Care Payers DatePayer CategoryPayerPolicy [id number] [facility] [id number] - [id number] [id number] Health [id number] 2023Medicaid [facility] MEDICAID [id number] Care Other (unspecified)[employer] [id number] 2.840.1.517086.3.579.2.07606-25-8102Xwysncj1736103 2.160.1.299028.3.579.2.05995-52-6265Eyvtulq1734101 2.0.1.027556.3.579.2.39031-57-3110Zuevzno0084937 2.840.1.478586.3.579.2.26186-77-3491Svezyje1442227 2.840.1.524101.3.579.2.29253-07-3068Saogjxd9018258 2.0.1.704663.3.579.2.96011-56-3425Juetnlr8548735 2.0.1.909406.3.579.2.82293-41-7470Nnfyija3442531 2.840.1.093536.3.579.2.24821-47-9518Lgjiuvu7809692 2.840.1.247726.3.579.2.97629-47-9509Stbntuh6458160 2.840.1.687377.3.579.2.46948-33-4632Tdyznqa98151005 2.16840.1.672719.3.579.2.62271-84-5418Zcozolt02538840 2.840.1.072470.3.579.2.97031-42-6843Jvxfumn67660085 2.16840.1.753512.3.579.2.38726-82-0479Wxeqpfc66856337 2.16840.1.364705.3.579.2.54025-85-5566Smwfipv08766360 2.16840.1.368810.3.579.2.26910-42-5265Ftrlthb03167463 2.16840.1.275797.3.579.2.61379-47-0367Gczvogz88884509 2.16840.1.306917.3.579.2.03459-23-5680Jmprcxy38814836 2..1.268688.3.579.2.54189-52-7988Jbovbqg13372331 2.840.1.922917.3.579.2.56982-70-5604Vqtmllp50529467 2.840.1.454149.3.579.2.09069-02-4081Yncxmfe52056743 2.840.1.144741.3.579.2.38931-49-0292Tcsvkrb61978826 2..1.531724.3.579.2.92715-99-9274Ubybsud33108921 2.16840.1.932338.3.579.2.48060-38-7588Clxodmk02493298 2.16840.1.755662.3.579.2.56508-50-4647Lcqugcg08781718 2.16840.1.286064.3.579.2.28526-38-8837Slljzqo71653585 2.840.1.827011.3.579.2.92786-07-1673Ebmukyp692596392 2.16.840.1.569885.3.579.2.02412-17-8394Vgvskyd24086384 2.16.840.1.344058.3.579.2.65062-88-6503Irfjczz09824539 2.16.840.1.315082.3.579.2.85432-71-1085Kdveeom65111618 2.16.840.1.833929.3.579.2.01411-50-5839Wipdfkm65143855 2.16.840.1.266439.3.579.2.23141-94-1933Jrbjeot59416345 2.16.840.1.198030.3.579.2.90650-82-1267Kgqjlln21851514 2.16.840.1.387038.3.579.2.14945-29-9538Irxrsxn28124164 2.16.840.1.784674.3.579.2.22839-93-1405Velfaqh803274974 2.16840.1.726951.3.579.2.177047-92-6451Eplabkz034918837 2.16.840.1.182218.3.579.2.174735-15-3416Evhithj620278634 2.16.840.1.913333.3.579.2.433487-03-7926Ixxqhbk075881205 2.16.840.1.122406.3.579.2.523341-81-7430Ygnyjld217532976 2.16.840.1.223530.3.579.2.261989-33-0790Mlaumaa47858013 2.16.840.1.347043.3.579.2.416078-13-9032Egweswg38419890 2.16.840.1.069390.3.579.2.713970-02-6847Iznsjrd89386468 2.16.840.1.294430.3.579.2.831743-49-8356Uvehofj80350432 2.16.840.1.469499.3.579.2.064475-54-8729Vijngxq50238750 2.16.840.1.872088.3.579.2.482576-26-1813Trcgfca49408386 2.16.840.1.491421.3.579.2.889811-08-9645Kyvhjge24285462 2.16.840.1.718166.3.579.2.280468-44-4621Grgcsfr64757882 2.16.840.1.956688.3.579.2.915151-43-1304Gerpjhb8334262 2.16.840.1.910450.3.579.2.451670-82-2547Hzmamvs3520490 2.16.840.1.232955.3.579.2.596461-48-6495Xwfb-lvg32-51-9009Pwduogr324154582969 57-23-9680Xpqqclz57841088882831206Qkgbatv4771076552385-36-3849Xdkhdqy7177192999Vnywueb5989004 2.0.1.010135.3.579.2.180Fswxjjb173682279384 Social History DateTypeDetailFacilityStart: 05-03-2022 End: 74-67-0241Mekhrxu smoking statusNever smoked tobacco (finding)[facility] Primary CareStart: 68-67-1978Jbbsxej smoking statusNeverUniversity Hospitals Tri[facility] Primary CareStart: 07-12-2023 End: 85-53-6121Rri Assigned At BirthFeSelect [facility] Southtart: 12-12-2023 End: 30-16-1424Mvehmxali beverage intakeCurrent drinker of alcohol (finding)[facility] CenterStart: 07-12-2023 End: 35-78-2944Elaxfnb of Social functionNOMS HealthcareStart: 47-64-8103Rwbjvcv Commentoccasional alcohol useNOMS HealthcareStart: 68-47-8269Pnn assigned at birthNot on fileSaint John's Breech Regional Medical CenterTobacco smoking status NHISTobacco smoking consumption unknownFirelands Regional Medical Center South Campusexual OrientationChillicothe Hospital Start: 07-02-2009 End: 93-87-0325RobQctqlj (finding)[facility] Hospitaltart: 06-30-2024 PregnancyNOMS HealthcareStart: 61-45-0206Sdgzxnd use and exposureSmokeless tobacco non-userUniversity Hospitals Elyria Medical Center SystemStart: 09-24-2024 End: 67-80-7116Rsryrpenc beverage intakeEx-drinker (finding)[facility] SystemThe thought of harming myself has occurred to [facility] Medical Equipment Procedure CodeEquipment CodeEquipment Original TextEquipment IdentifierDates Glucose Test Strips, See Instructions, 1 EA, 3, Glucose Test Strips, [facility] [employer] #[facility], Supply, 166, cm, 10/08/22 15:10:00 EDT, Height/Length Dosing, 57.8, kg, 10/08/22 15:10:00 EDT, Weight DosingStart: 60-17-3355Xdgicsw, See Instructions, 100 lancet(s), 3, Lancets, [facility] [employer] #37, Supply, 166, cm, 10/08/22 15:10:00 EDT, Height/Length Dosing, 57.8, kg, 10/08/22 15:10:00 EDT, Weight DosingStart: 28-01-6599Otohkgl Test Strips, See Instructions, 1 EA, 3, Glucose Test Strips, [facility] [employer] #[facility], Supply, 166, cm, 10/08/22 15:10:00 EDT, Height/Length Dosing, 57.8, kg, 10/08/22 15:10:00 EDT, Weight DosingStart: 08-23-9816Hxqecip, See Instructions, 100 lancet(s), 3, Lancets, [employer] [facility] [employer] #37, Supply, 166, cm, 10/08/22 15:10:00 EDT, Height/Length Dosing, 57.8, kg, 10/08/22 15:10:00 EDT, Weight DosingStart: 05-37-7296Nbqztli Test Strips, See Instructions, 1 EA, 3, Glucose Test Strips, [employer] [facility] [employer] [facility], Supply, 166, cm, 10/08/22 15:10:00 EDT, Height/Length Dosing, 57.8, kg, 10/08/22 15:10:00 EDT, Weight DosingStart: 17-86-2876Blnxmqa, See Instructions, 100 lancet(s), 3, Lancets, [facility] [employer] #37, Supply, 166, cm, 10/08/22 15:10:00 EDT, Height/Length Dosing, 57.8, kg, 10/08/22 15:10:00 EDT, Weight DosingStart: 33-54-6303Hwutzil Test Strips, See Instructions, 1 EA, 3, Glucose Test Strips, [employer] [facility] [employer] [facility], Supply, 166, cm, 10/08/22 15:10:00 EDT, Height/Length Dosing, 57.8, kg, 10/08/22 15:10:00 EDT, Weight DosingStart: 98-17-4846Pmgjuyt, See Instructions, 100 lancet(s), 3, Lancets, [facility] [employer] #37, Supply, 166, cm, 10/08/22 15:10:00 EDT, Height/Length Dosing, 57.8, kg, 10/08/22 15:10:00 EDT, Weight DosingStart: 14-08-0561Mpciayh Test Strips, See Instructions, 1 EA, 3, Glucose Test Strips, [employer] [facility] [employer] #[facility], Supply, 166, cm, 10/08/22 15:10:00 EDT, Height/Length Dosing, 57.8, kg, 10/08/22 15:10:00 EDT, Weight DosingStart: 65-33-2400Vqcgtyx, See Instructions, 100 lancet(s), 3, Lancets, [facility] [employer] #37, Supply, 166, cm, 10/08/22 15:10:00 EDT, Height/Length Dosing, 57.8, kg, 10/08/22 15:10:00 EDT, Weight DosingStart: 18-06-1124Frbbrxz Test Strips, See Instructions, 1 EA, 3, Glucose Test Strips, [facility] [employer] [facility], Supply, 166, cm, 10/08/22 15:10:00 EDT, Height/Length Dosing, 57.8, kg, 10/08/22 15:10:00 EDT, Weight DosingStart: 14-17-9440Eoudmha, See Instructions, 100 lancet(s), 3, Lancets, [facility] [employer] #37, Supply, 166, cm, 10/08/22 15:10:00 EDT, Height/Length Dosing, 57.8, kg, 10/08/22 15:10:00 EDT, Weight DosingStart: 41-97-9983Cgdupqh Test Strips, See Instructions, 1 EA, 3, Glucose Test Strips, [facility] [employer] #37, Supply, 166, cm, 10/08/22 15:10:00 EDT, Height/Length Dosing, 57.8, kg, 10/08/22 15:10:00 EDT, Weight DosingStart: 40-79-0312Dpjiodg, See Instructions, 100 lancet(s), 3, Lancets, [facility] [employer] #37, Supply, 166, cm, 10/08/22 15:10:00 EDT, Height/Length Dosing, 57.8, kg, 10/08/22 15:10:00 EDT, Weight DosingStart: 11-35-5736Xbwejzv Test Strips, See Instructions, 1 EA, 3, Glucose Test Strips, [employer] [facility] [employer] #[facility], Supply, 166, cm, 10/08/22 15:10:00 EDT, Height/Length Dosing, 57.8, kg, 10/08/22 15:10:00 EDT, Weight DosingStart: 80-87-4885Aeuqcsj, See Instructions, 100 lancet(s), 3, Lancets, [facility] [employer] #37, Supply, 166, cm, 10/08/22 15:10:00 EDT, Height/Length Dosing, 57.8, kg, 10/08/22 15:10:00 EDT, Weight DosingStart: 61-32-9576Kmhmbrr Test Strips, See Instructions, 1 EA, 3, Glucose Test Strips, [employer] #37, Supply, 166, cm, 10/08/22 15:10:00 EDT, Height/Length Dosing, 57.8, kg, 10/08/22 15:10:00 EDT, Weight DosingStart: 67-49-1264Tetlodh, See Instructions, 100 lancet(s), 3, Lancets, [employer] #37, Supply, 166, cm, 10/08/22 15:10:00 EDT, Height/Length Dosing, 57.8, kg, 10/08/22 15:10:00 EDT, Weight DosingStart: 36-34-0445Des[place]oo Test Strips, See Instructions, 1 EA, 3, Glucose Test Strips, [employer] #37, Supply, 166, cm, 10/08/22 15:10:00 EDT, Height/Length Dosing, 57.8, kg, 10/08/22 15:10:00 EDT, Weight DosingStart: 77-07-8700Hqckems, See Instructions, 100 lancet(s), 3, Lancets, [employer] #37, Supply, 166, cm, 10/08/22 15:10:00 EDT, Height/Length Dosing, 57.8, kg, 10/08/22 15:10:00 EDT, Weight DosingStart: 97-50-6640Welhniv Test Strips, See Instructions, 1 EA, 3, Glucose Test Strips, [facility] [employer] #37, Supply, 166, cm, 10/08/22 15:10:00 EDT, Height/Length Dosing, 57.8, kg, 10/08/22 15:10:00 EDT, Weight DosingStart: 58-80-9560Vrxfiae, See Instructions, 100 lancet(s), 3, Lancets, [employer] #37, Supply, 166, cm, 10/08/22 15:10:00 EDT, Height/Length Dosing, 57.8, kg, 10/08/22 15:10:00 EDT, Weight DosingStart: 35-88-9541Hmzzjwd Test Strips, See Instructions, 1 EA, 3, Glucose Test Strips, [employer] #37, Supply, 166, cm, 10/08/22 15:10:00 EDT, Height/Length Dosing, 57.8, kg, 10/08/22 15:10:00 EDT, Weight DosingStart: 85-54-6292Fpooeos, See Instructions, 100 lancet(s), 3, Lancets, [employer] #37, Supply, 166, cm, 10/08/22 15:10:00 EDT, Height/Length Dosing, 57.8, kg, 10/08/22 15:10:00 EDT, Weight DosingStart: 48-69-5837Tgq daily as directed & as neededStart: 03-26-2021 Functional Status CulxXugxoqgjviQjoclzHhkiphxb22-55-4959Miejzlaekl StatusN/[facility] Primary Fsrf94-35-0354Otsrorvksa StatusN/[facility] Primary Kuhd80-39-7753Zyumewxjep StatusN/[facility] Primary Qiss89-57-0882Yxyhvalctg StatusN/[facility] Digestive Health 29-79-3046Junctucpro StatusN/[facility] Primary Davn74-08-8353 Functional StatusN/[facility] Primary Care Clinical Notes 05-03-2022 to 01-28-2025 Note Date & TwkgChfbAwwleovl77-34-0612 History of Present illness Narrative* Abril Stone [...] nursing note reviewed. Exam conducted with a pipe processor present. Vitals: Estimated body mass index is 26.29 kg/m as calculated from the following: Height as of 11/29/22: 5' 5 . Weight as of this encounter: 158 lb. BP: 124/70 Patient's last menstrual period was 06/16/2024. Assessment/Plan ICD-10-CM 1. Third trimester ([facility]) Z34.93 POCT urinalysis dipstick manually resulted 2. 32 weeks gestation of ([facility]) Z3A.32 3. Thyroid disease E07.9 4. History [...] of: Santosh Marshall DO documented in this encounterSaint John's Breech [facility] Medical CenterCgzkempjuo82-82-7780 History of Present illness Narrative* Abril Stone [...] nursing note reviewed. Exam conducted with a pipe processor present. Vitals: Estimated body mass index is 26.71 kg/m as calculated from the following: Height as of 23: 5' 5 . Weight as of this encounter: 160 lb 8 oz. BP: 126/72 Patient's last menstrual period was 06/16/2024. Assessment/Plan ICD-10-CM 1. Third trimester ([facility]) Z34.93 POCT urinalysis dipstick manually resulted 2. 30 weeks gestation of ([facility]) Z3A.30 Return OB: Patient presents [...] of: Santosh Marshall DO documented in this encounterSaint John's Breech Regional Medical CenterLpxvgbvtwu05-83-1922 History of Present illness Narrative* Daiana Villarreal [...] nursing note reviewed. Exam conducted with a pipe processor present. Vitals: Estimated body mass index is 25.38 kg/m as calculated from the following: Height as of 11/29/22: 5' 5 . Weight as of this encounter: 152 lb 8 oz. BP: 106/68 Patient's last menstrual period was 06/16/2024. ASSESSMENT & PLAN ICD-10-CM 1. Third trimester ([facility] Z34.93 POCT urinalysis dipstick manually resulted 2. 28 weeks gestation of ([facility] Z3A.28 Patient presents today for a routine obstetrics appointment. Patient is currently 28w2d with a Estimated Date of Delivery: 03/23/25. Patient had growth scan done prior to today's appointment. Patient will start NST/BPP at 32 weeks. Patient to return to clinic in 2 weeks. Documented by Daiana Villarreal LPN on behalf of: Santosh Marshall DO documented in this encounterSaint John's Breech Regional Medical CenterAigudkwrgf85-95-1472 History of Present illness Narrative* LIS Man [...] ASSESSMENT & PLAN ICD-10-CM 1. Second trimester ([facility]) Z34.92 POCT urinalysis dipstick manually resulted 2. 25 weeks gestation of ([facility]) Z3A.25 3. Diabetes mellitus screening Z13.1 CBC [...] of: LIS Man documented in this encounterNOMS Logzvryjti17-13-9444 History of Present illness Narrative* Abril Stone, [...] nursing note reviewed. Exam conducted with a pipe processor present. Vitals: Estimated body mass index is 23.15 kg/m as calculated from the following: Height as of 11/29/22: 5' 5 . Weight as of this encounter: 139 lb 1.9 oz. BP: 110/72 Patient's last menstrual period was 06/16/2024. ASSESSMENT & PLAN ICD-10-CM 1. Second trimester ([facility]) Z34.92 POCT urinalysis dipstick manually resulted 2. 21 weeks gestation of ([facility]) Z3A.21 POCT urinalysis dipstick manually resulted 3. [...] 4 weeks; She is followed closely per [facility] with history of hypothyroidism. Will obtain growth ultrasounds every 4 weeks and begin NST/BPP at 32 weeks. Documented by Abril Stone NP on behalf of: Santosh Marshall DO documented in this encounterSaint John's Breech Regional Medical CenterJuauteasll65-82-5813 History of Present illness Narrative* Nadira Salazar [...] risk Have you been seen here at [facility] in a previous ? Recent ER visits or hospitalizations? No Bring blood sugar log or meter with you today? (Please bring them with you for every visit at [facility]) NA Flu vaccine (Jan-May)? NA Any [...] Jacklyn Campos MD, FACOG (she/hers) Maternal- Medicine [facility] [address] [place] [address] This document was created with [employer] technology. Though I make every effort to review the dictation as it is transcribed, on occasion the spoken word can be misinterpreted by the technology leading to inappropriate words, phrases, or sentences. This note is addressed to the requesting provider as a consultation for clinical guidance. Specificmedical abbreviations are occasionally used and those are generally approved by the [place]?Board of?Obstetrics and?Gynecology?as well as?Lucy campos abbreviations. The above plan of care was based solely on the diagnoses for which a consultation was requested. ?More frequent testing may be indicated based on her other medical/obstetrical conditions. The management of other or medical conditions is beyond the scope of requested consultation and will c ontinue to be followed by the primary men's golf coach or primary care provider. Note to patient: [...] opinion of the practitioner. documented in this encounterAvita Health System Galion HospitalMoneyMail [id number] History of Present illness Narrative* LIS Man [...] & PLAN ICD-10-CM 1. Second trimester ([facility]) Z34.92 2. 17 weeks gestation of ([facility]) Z3A.17 POCT urinalysis dipstick manually [...] behalf of: LIS Man documented in this encounterSaint John's Bree[facility] Medical [id number] History of Present illness Narrative* Aliya JeronimoKALE [...] nursing note reviewed. Exam conducted with a pipe processor present. Vitals: Estimated body mass index is 22.1 kg/m as calculated from the following: Height as of 11/29/22: 5' 5 . Weight as of this encounter: 132 lb 12.8 oz. BP: 112/70 Patient's last menstrual period was 06/16/2024. ASSESSMENT & PLAN ICD-10-CM 1. 13 weeks gestation of ([facility]) Z3A.13 2. Second trimester ([facility]) Z34.92 3. Thyroid disease E07.9 [...] or undercooked meat, and stay away from [facility]. Patient has been consulted regarding any further do's and don'tsof . Patient voiced understanding and all questions and concerns were answered. Pt has h/o IUGR, thyroid disease, pt being referred to [facility] for level II ultrasound. Pt should be taking 125mcg of levothyroxine. Pt voiced understanding. Pt to start baby aspirin. Orders Placed This Encounter Procedures Glucose tolerance, 1 hour Follow Up: Patient is to return in 4 weeks for routine OB appointment. Documented by Aliya Jeronimo LPN on behalf of: Santosh Marshall DO documented in this encounterSaint John's [facility] [id number] History of Present illness Narrative* Carmita Tapia, FOOD SERVICE AIDE - 08/17/2024 9:30 AM EDT Reason for [...] or undercooked meat, and stay away from [facility]. Patient has also been advised to not change litter boxes and eat 6 small meals a day. Patient has been consulted regarding the do's and don'ts ofpregnancy. Patient was given labs and all questions and concerns were answered. Patient was sent in Magnesium for headaches. Patient given [place] labs to do with initial labs along [...] concerns or questions. Nurse Visit Completed by: Camrita Tapia LPN documented in this encounterSaint John's Bree[facility] Medical [id number] NotePatient Education Endocrinology Hypothyroidism Hypothyroidism is when [...] Follow these instructions at home: ??? Take vjno-wlx-aovqbzo and prescription medicines only as told by [...] Reviewed: 03/09/2022 Elsevier Patient Education ? 2023 [employer] Obstetrics and Gynecology Health Maintenance, Female Adopting a healthy lifestyle and getting preventive care are important in promoting health and wellness. Ask your health care provider about: ??? The right schedule for you to have regular tests and exams. ??? Things (more content not included)...[facility]04-17-2025 NotePatient Education ENT How to Perform a [...] cannot use soap and water, use hand medical office administrator. 2. Wash your device using the directions [...] provider. Document Revised: 08/24/2021 Document Reviewed: 08/24/2021 [employer] Patient Education ? 2023 [employer]. Infectious Disease Sinus Infection, Adult A sinus [...] this diagnosed? Your s (more content not included)...[facility]09-23-2024 History of Present illness Narrative* Daiana Villarreal [...] Date BMI 23.0-23.9, adult Thyroid disease ([facility]/HCC) Well woman exam HISTORY PAST MEDICAL [...] nursing note reviewed. Exam conducted with a pipe processor present. Vitals: Estimated body mass index is [...] of: Santosh Marshall DO documented in this encounterSaint John's Bree[facility] Medical [id number] Hospital Discharge instructions Patient Education 08/08/2023 16:25:47 [...] to help relieve pain. General instructions Take ccbe-hrd-pyuyccg and prescription medicines only as told by [...] provider. Document Revised: 10/22/2020 Document Reviewed: 10/22/2020 [employer] Patient Education 2022 [employer]. 08/08/2023 16:25:44 Hemorrhoids Hemorrhoids Hemorrhoids are swollen [...] 3 times a day. General instructions Take ivan-sxy-yxuxqfs and prescription medicines only as told by [...] provider. Document Revised: 09/16/2021 Document Reviewed: 09/16/2021 [employer] Patient Education 2022 [employer]. 08/08/2023 16:25:43 Urinary Tract Infection, Adult Urinary [...] Treatment for this condition includes: Antibiotic medicine. Xppe-okg-izvofbs medicines to treat discomfort. Drinking enough water [...] Follow these instructions at home: Medicines Take ibss-vnz-vqjcsjp and prescription medicines only as told by [...] provider. Document Revised: 10/17/2020 Document Reviewed: 10/17/2020 [employer] Patient Education 2022 [employer]. 08/08/2023 16:25:41 Hypothyroidism Hypothyroidism Hypothyroidism is when [...] away. Follow these instructions at home: Take vskb-bof-bdvfprq and prescription medicines only as told by [...] provider. Document Revised: 03/09/2022 Document Reviewed: 03/09/2022 [employer] Patient Education 2022 [employer]. [facility] Primary Care 05-20-2024 Evaluation + Plan note Future Scheduled Tests Laboratory* UA with Cult Rflx 08/08/23 * CBC w/ Auto Diff 02/08/24 * Comprehensive Metabolic Panel 02/08/24 * Thyroid Stimulating Hormone 02/08/24 * Thyroid Stimulating Hormone 05/16/23 * Free T4 02/08/24 * Free T4 05/16/23 [facility] Primary Care 12-20-2023 Hospital Discharge instructions [...] including vitamins, herbs, eye drops, creams, and rehq-dwn-blqnuwi medicines. ?Whether you are or may be [...] provider. Document Revised: 11/18/2021 Document Reviewed: 10/10/2020 [employer] Patient Education 2022 [employer]. 03/09/2023 08:08:48 Urinary Tract Infection, Adult Urinary [...] Treatment for this condition includes: Antibiotic medicine. Fsbl-kyh-rgxuoij medicines to treat discomfort. Drinking enough water [...] Follow these instructions at home: Medicines Take lhdo-arh-oadkgem and prescription medicines only as told by [...] provider. Document Revised: 10/17/2020 Document Reviewed: 10/17/2020 [employer] Patient Education 2022 [employer]. 03/09/2023 08:08:46 Hypothyroidism Hypothyroidism Hypothyroidism is when [...] away. Follow these instructions at home: Take brcl-jyt-hwecfrt and prescription medicines only as told by [...] provider. Document Revised: 03/09/2022 Document Reviewed: 03/09/2022 [employer] Patient Education 2022 [employer]. Follow Up Care 03/07/2023 12:06:45 With:Ya Wang FAM, [facility] Address: [address], [address] [place] [id number] Business (1) When:05/25/2023 Comments:for f/u [facility] Primary Care 12-04-2023 Hospital Discharge instructions [...] Follow these instructions at home: Medicines Take zjrj-lei-qprmlgj and prescription medicines only as told by [...] provider. Document Revised: 10/17/2020 Document Reviewed: 10/17/2020 [employer] Patient Education 2022 [employer]. Follow Up Care 02/21/2023 08:19:47 With:Ya Wang FAM, MED Address: [address] [place], [place] [phone] Business (1) When:05/25/2023 Comments:for f/u [facility] Primary Care 09-12-2023 Hospital Discharge instructions [...] Bulgur wheat. Millet. Quinoa. Bran muffins. Popcorn. [place] wafer crackers. Meats and other proteins [place] beans, kidney beans, and díaz beans. Soybeans. [...] Cream cheese. Sour cream. Fats and oils [place]. Beverages Soft drinks. Other foods Cakes and [...] Document Reviewed: 07/10/2020 Elsevier Patient Education 2022 [employer]. Follow Up Care 11/11/2022 12:10:41 With:Daniel Gray CNP Address: When:2 weeks Comments:Following EGD/Colonoscopy. [facility] 08-24-2023 Hospital Discharge instructions [...] serving. Talk with a diet and nutrition therapist (dietitian) if you have questions about specific [...] Bulgur wheat. Millet. Quinoa. Bran muffins. Popcorn. [place] wafer crackers. Meats and other proteins [place], kidney, and díaz beans. Soybeans. Split peas. [...] Cream cheese. Sour cream. Fats and oils [place]. Beverages Soft drinks. Other foods Cakes and [...] 03/07/2006 Document Revised: 01/09/2018 Document Reviewed: 01/09/2018 [employer] Patient Education 2020 [employer]. 11/11/2022 01:00:54 Hemorrhoids Hemorrhoids Hemorrhoids are swollen [...] 3 times a day. General instructions Take usms-yrv-nqiqxxs and prescription medicines only as told by [...] provider. Document Revised: 09/16/2021 Document Reviewed: 09/16/2021 [employer] Patient Education 2022 [employer]. Follow Up Care 11/08/2022 14:59:04 With:Ya Wang FAM, [facility] Address: [address] [place] [address] [facility] (1) When:Within 3 Month(s) Comments:3 mo f/u [facility] Primary Care 02-13-2023 Hospital Discharge instructions [...] away. Follow these instructions at home: Take uqgl-ynt-brptpte and prescription medicines only as told by [...] 03/07/2006 Document Revised: 02/17/2018 Document Reviewed: 02/15/2018 [employer] Patient Education [employer]. Follow Up Care 04/05/2022 12:35:49 With:Ritu Desai CNP Address: [address] [place] [phone] When:1 year Comments:or sooner if needed. [facility] Primary Care Evaluation + Plan note No data available for this section [facility] Primary Care Evaluation + Plan note Future Appointments Appointment Date:11/30/2022 12:00:00 PM Scheduled Provider:Daniel Gray CNP Location:[facility] Appointment Type:BAD New Patient Appointment Date:04/04/2023 01:00:00 PM Scheduled Provider:Ya Wang Location:[facility] Appointment Type: Open Future Scheduled Tests Laboratory* TSH With T4fr Reflex 10/08/22 [facility] Primary Care Evaluation + Plan note Future Appointments Appointment Date:04/04/2023 01:00:00 PM Scheduled Provider:Ya Wang Location:[facility] Appointment Type:FM Open Future Scheduled Tests Laboratory* TSH With T4fr Reflex 10/08/22 [facility] Evaluation + Plan note Future Appointments Appointment Date:07/25/2023 10:00:00 AM Scheduled Provider:Ya Wang Location:[facility] Appointment Type:FM Open Future Scheduled Tests Laboratory* T3 Free 02/21/23 * Thyroid Stimulating Hormone 02/21/23 * Free T4 02/21/23 [facility] Primary Care Evaluation + Plan note Future Appointments Appointment Date:07/25/2023 10:00:00 AM Scheduled Provider:Ya Wang Location:[facility] Appointment Type:FM Open Diagnostic Tests Pending * Urine Culture 02/21/23 Future Scheduled Tests Laboratory* T3 Free 02/21/23 * Thyroid Stimulating Hormone 02/21/23 * [facility] T[facility] Appointment Date:07/25/2023 10:00:00 AM Scheduled Provider:Ya Wang [facility] Appointment Type:FM Open Future Scheduled Tests Laboratory* T3 Free 02/21/23 * Thyroid Stimulating Hormone 02/21/23 * Free T4 02/21/23 Radiology* US Retroperitoneal Complete 03/09/23 [facility] Primary Care Evaluation + Plan note Future Appointments Appointment Date:07/25/2023 10:00:00 AM Scheduled Provider:Ya Wang [facility] Appointment Type:FM Open Diagnostic Tests Pending * Urine Culture 03/09/23 Future Scheduled Tests Laboratory* T3 Free 02/21/23 * Thyroid Stimulating Hormone 02/21/23 * Free T4 02/21/23 Radiology* US Retroperitoneal Complete 03/09/23 [facility] App[facility]ments Appointment Date:07/12/2023 09:30:00 AM Scheduled Provider:OPAL LUZ PA-C Location:[facility] Appointment Type:URO New Patient Appointment Date:07/25/2023 10:00:00 AM Scheduled Provider:Ya Wang [facility] Appointment Type:FM Open Diagnostic Tests Pending * T3 Free 03/22/23 [facility] Future App[facility]ments Appointment Date:07/12/2023 09:30:00 AM Scheduled Provider:OPAL LUZ PA-C Location:[facility] Appointment Type:URO New Patient Appointment Date:07/25/2023 10:00:00 AM Scheduled Provider:Ya Wang [facility] Appointment Type:FM Open [facility] Future Appointments Appointment Date:07/25/2023 10:00:00 AM Scheduled Provider:Ya Wang Location:[facility] Appointment Type:FM Open Future Scheduled Tests Laboratory* Thyroid Stimulating Hormone 05/16/23 * Free T4 05/16/23 [facility] evaluation + Plan note Future Scheduled Tests Laboratory* CBC w/ Auto Diff 02/08/24 * Comprehensive Metabolic Panel 02/08/24 * Thyroid Stimulating Hormone 02/08/24 * Free T4 02/08/24 [facility] Future App[facility]ments Appointment Date:07/09/2024 08:00:00 AM Scheduled Provider:Marta Rivas Location:[facility] Appointment Type:FM New Patient - Adult Future Scheduled Tests Laboratory* CBC w/ Auto Diff 02/08/24 * Comprehensive Metabolic Panel 02/08/24 * Thyroid Stimulating Hormone 02/08/24 * Free T4 02/08/24 [facility] Evaluation note* Diagnosis Well woman exam with routine gynecological exam Routine gynecological examination documented in this encounter [facility]* Diagnosis Family history of autism Family history of psychiatric condition [facility] Diagnosis Missed menses , unspecified gestational age Encounter for supervision of normal first in first trimester Nonintractable headache, unspecified chronicity pattern, unspecified headache type documented in this encounter [facility]* Diagnosis 13 weeks gestation of (HHS-HCC) Second trimester (HHS-HCC) state, incidental Thyroid disease Unspecified disorder of thyroid History of prior with IUGR Diabetes mellitus screening Screening for diabetes mellitus documented in this encounter [facility]* Diagnosis Thyroid disease affecting - Primary History of prior with IUGR documented [facility] this encounter [facility]* Diagnosis Second trimester (HHS-HCC) state, incidental 17 weeks gestation of (HHS-HCC) documented in this encounter [facility]* Diagnosis 20 weeks gestation [...] rupture of membranes documented in this encounter [facility]* Diagnosis 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 trimester- Primary History of prior with IUGR History of premature rupture of membranes documented in this encounter [facility]* Diagnosis Hypothyroidism, unspecified type- Primary Second trimester (HHS-HCC) state, incidental 21 weeks gestation of (HHS-HCC) Vaginal discharge Leukorrhea, not specified as infective STD exposure documented in this encounter [facility]* Diagnosis Size of fetus inconsistent with dates in second trimester (HHS-HCC)- Primary Second trimester (HHS-HCC) state, incidental 25 weeks gestation of (HHS-HCC) Diabetes mellitus screening Screening for diabetes mellitus documented in this encounter [facility]* Diagnosis Third trimester (HHS-HCC) state, incidental 28 weeks gestation of (HHS-HCC) documented in this encounter [facility]* Diagnosis Third trimester (HHS-HCC) state, incidental 30 weeks gestation of (HHS-HCC) documented in this encounter [facility]* Diagnosis Third trimester (HHS-HCC) state, incidental 32 weeks gestation of (HHS-HCC) Thyroid disease Unspecified disorder of thyroid History of prior with IUGR Hypothyroidism, unspecified type documented [facility] No data available for this section [facility] filedocumented in this encounter [facility] filedocumented in this encounter [facility]Not on filedocumented in this encounter [facility]InstructionsNot on filedocumented in this encounter [facility] No data available for this section [facility] Primary Care Summary Purpose Family History [...] InactivatedComments04/21/2021 7:00 PM2 1:57 PMDate Activated Date AejdgldkoqyZxsrnaet47/14/2021 5:01 PM03/26/2021 7:46 PMDate ActivatedDate InactivatedComments05/30/2021 7:15 AM06/01/2021 2:55 PMDate ActivatedDate InactivatedComments05/12/2021 1:10 PM2 2:16 PMDate ActivatedDate InactivatedComments04/21/2021 7:00 PM2 1:57 PMDate ActivatedDate NwfkegfliedOroiplis65/14/2021 5:01 PM03/26/2021 7:46 PM Additional Source Comments INFORMATION SOURCE (unrecogn ized section and content) DATE CREATED AUTHOR 11/15/2021 [facility] DATE CREATED AUTHOR AUTHOR'S ORGANIZ ATION 09/09/2023 [facility] DATE CREATED AUTHOR AUTHOR'S ORGANIZ ATION 05/21/2024 [facility] DATE CREATED AUTHOR AUTHOR'S ORGANIZ ATION 07/06/2024 [facility] DATE CREATED AUTHOR AUTHOR'S ORGANIZ ATION 07/10/2024 [facility] DATE CREATED AUTHOR AUTHOR'S ORGANIZ ATION 07/13/2024 [facility] DATE CREATED AUTHOR AUTHOR'S ORGANIZ ATION 11/21/2024 [facility] DATE CREATED AUTHOR AUTHOR'S ORGANIZ ATION 12/12/2024 [facility] DATE CREATED AUTHOR AUTHOR'S ORGANIZ ATION 01/28/2025 [facility] EPIC Patient Care team informatio n (unrecognized section and content) Team MemberRelationshipSpecialtyStart DateEnd Date Staci White MD [address] [place] [address] PCP - GeneralInternal Medicine11/29/22Team MemberRelationshipSpecialtyStart Date End Date Staci White MD [address] [place] [address] PCP - GeneralInternal Medicine11/29/22Team MemberRelationshipSpecialtyStart Date End Date Staci White MD [address] [place] [address] PCP - GeneralInternal Medicine11/29/22Team MemberRelationshipSpecialtyStart Date End [place] [address] Attending ProviderMedical Clinical Genetics05/14/24Team MemberRelationship SpecialtyStart DateEnd Date Staci White MD [address] [place], [place] [address] PCP - GeneralInternal Medicine11/29/22am MemberRelationshipSpecialtyStart Date End Date Staci White MD [address] [place] [address] PCP - GeneralInternal Medicine11/29/22am MemberRelationshipSpecialtyStart Date End Date Staci White MD [address] [place] [address] PCP - GeneralInternal Medicine11/29/22am MemberRelationshipSpecialtyStart Date End Date Staci White MD [address] [place] [address] PCP - GeneralInternal Medicine11/29/22am MemberRelationshipSpecialtyStart Date End Date Staci White MD PCP - GeneralInternal Medicine04/07/21am MemberRelationshipSpecialtyStart Date End Date Staci White MD [address] [place] [address] PCP - GeneralInternal Medicine11/29/22am MemberRelationshipSpecialtyStart Date End Date Staci White MD PCP - GeneralInternal Medicine04/07/21am MemberRelationshipSpecialtyStart Date End Date Staci White MD PCP - GeneralInternal Medicine04/07/21Te MemberRelationshipSpecialtyStart Date End Date Staci White MD [address] [place] [address] [facility] - [facility]11/29/22Te MemberRelationshipSpecialtyStart Date End Date Staci White MD [address] [place] [address] PCP - GeneralInternal [facility]11/29/22Te MemberRelationshipSpecialtyStart Date End Date Staci White MD [address] [place] [address] [facility]11/29/22Te MemberRelationshipSpecialtyStart Date End Date Staci White MD [address] [place] [address] [facility]11/29/22Te MemberRelationshipSpecialtyStart Date End Date Staci White MD [address] [place] [address] PCP - [facility]Hon[facility]11/29/22 Reason for Visit (unrecogniz ed section [...] BE BASED ON THE PRIMARY CLINICAL RECORDS. [facility] [employer] [facility]. provides no warranty or guarantee of the accuracy or completeness of information in this document.
--- OUTSIDE RECORDS SUMMARY | 2025-02-15 18:01 | XMS_ITS ---
Author Organization [employer] Source Produ ction (ClinicalSummary Clone) Address Unknown Care Team Providers Care Communication Specialist Name Role Phone Unavailable Primary Care Physician Unavailab le Results * [UNITY] ANEUPLOIDY NIPT Performed by: [employer] Value Range Date Fraction 8.6% 08/27/2024 02:47 am UTCRh(D) NIPTRhD GGHTLQYQ22/09/2025 02:47 am UTCSex Chromosome AneuploidyNOT SUBMYAPZ30/09/2025 02:47 am UTCMonosomy XLOW RISK <1 in , 02:47 am UTCTrisomy 13LOW RISK <1 in , 02:47 am UTCTrisomy 18LOW RISK <1 in , 02:47 am UTCTrisomy 21LOW RISK <1 in , 02:47 am UTCFetal PluZVEQUU81/09/2025 02:47 am UTCPregnancy CqozanyvxYHQXNJXNF83/09/2025 02:47 am UTCFor detailed report, see PDFSee PDF 08/27/2024 02:47 am UTC08/27/2024 02:47 am UTC Social History Observation Value Start Date End Date
--- OUTSIDE RECORDS SUMMARY | 2025-02-15 18:01 | XMS_ITS | Clinical Summary ---
Author Organization [facility] Address [address] [place] [address] Care Team Providers Care Lay Out And Detail Drafter Name Role Phone Carrillo White MD Primary Care Provider [phone] Allergies No known active allergies Medications MedicationSigDispense QuantityRefillsLast FilledStart DateEnd DateStatus levothyroxine (Synthroid) 125 MCG tablet Indications:Thyroid diseaseTake 1 tablet (125 mcg) by mouth in the morning. Take before meals. 30 tablet 1106//163883/6Active MV-Min-Fe Fum-FA-DHA ( 1 PO) Take by mouthActive Active Problems ProblemNoted DateDiagnosed DateThyroid oxnoxqt4501/28/2025History of prior with IUGR bedxofm9601/28/2025Estimated Date of DeliveryComments Yes03/23/2025ased on last menstrual period of 06/16/2024 Encounters DateTypeDepartmentCare IayjBclannozyoo33/25/2025linisync Result Encounter NOMS External Department Unsolicited Shauna Marshall, DO 02/12/2025linisync Result Encounter NOMS External Department Unsolicited Shauna Marshall, DO 02/05/2025linisync Result Encounter NOMS External Department Unsolicited Shauna Marshall, DO 02/05/2025linisync Result Encounter NOMS External Department Unsolicited Abril Stone NP 02/04/2025 8:00 AM ESTAncillary Procedure [facility] Augustina FUENTES [address] [place] [address] [place] [address] Thyroid disease; History of prior with IUGR ; Hypothyroidism, unspecified type01/28/2025 8:30 AM ESTRoutine [facility] Augustina Giles [facility] [phone] Shauna Marshall, Third trimester ([facility]); 32 weeks gestation of ([facility]); Thyroid disease; History of prior with IUGR ; Hypothyroidism, unspecified type01/28/2025amboo flowsheet [facility] Augustina FUENTES [address] [place] [address] [place] [address] Shauna Marshall, 01/14/2025 8:30 AM EDTRoutine [facility] Augustina Giles [facility] [place] [address] [phone] Shauna Marshall, Third trimester ([facility]); 30 weeks gestation of ([facility])01/14/2025amboo flowsheet [facility] Augustina FUENTES [address] [place] [address] [place] [address] Shauna Marshall, 12/31/2024 11:00 AM EDTRoutine NOMDwain Giles [facility] [place] [address] Shauna Marshall, Third trimester ([facility]); 28 weeks gestation of ([facility])12/31/2024 10:30 AM EDTAncillary Procedure [facility] Augustina Giles [facility] [place] [address] Size of fetus inconsistent with dates in second trimester ([facility])12/12/2024 Abstract [facility] Augustina Giles [facility] [address] Shauna Marshall, 12/12/2024linisync Result Encounter NOMS External Department Unsolicited Erum Guidry PA 12/11/2024Telephone UMESH Giles [facility] [address] Erum Guidry PA 5Clinisync Result Encounter NOMS External Department Unsolicited Erum Guidry PA 12/10/2024 10:00 AM EDTRoutine [facility] [address] [facility] [place] [address] Erum Guidry PA Size of fetus inconsistent with dates in second trimester ([facility]) (Primary Dx); Second trimester ([facility]); 25 weeks gestation of ([facility]); Diabetes mellitus cgscggmuu14/22/2025amboo flowsheet [facility] [address] [facility] [address] Erum Guidry PA 5Abstract [facility] [address] [facility] [place] [address] Shauna Marshall, DO 11/27/2024bstract [facility] [address] [facility] [address] Shauna Marshall, DO 11/23/2024bstract [facility] [address] [facility] [address] Ann Ma MA from Last 3 Months Family History Medical HistoryRelationNameCommentsCancerFatherDiabetesFatherHypertensionFather Mental illnessFatherCancerMaternal GrandmotherDiabetesMaternal Grandmother HypertensionMaternal GrandmotherStomach cancerMotherDiabetesPaternal Grandfather CancerPaternal GrandmotherRelationNameStatusCommentsFatherMaternal Grandmother MotherPaternal GrandfatherPaternal Grandmother Social History Tobacco UseTypesPacks/DayYears UsedDateSmoking Tobacco: Never Tobacco Cessation:Counseling Given: Not Answered Alcohol UseStandard Drinks/WeekCommentsYes0 (1 standard drink = 0.6 oz pure alcohol)occasional alcohol useEstimated Date of DeliveryCommentsYes 6Based on last menstrual period of 06/16/2024Sex and Gender Information ValueDate RecordedSex Assigned at BirthNot on fileLegal OfwEvonsf34/15/2023 10:14 PM EDTGender IdentityNot on fileSexual OrientationNot on file Last Filed Vital Signs Vital SignReadingTime TakenCommentsBlood Jqwqeknt060/7001/28/2025 8:39 AM EST Pulse--Temperature--Respiratory Rate--Oxygen Saturation--Inhaled Oxygen Concentration--Omfubi88.7 kg (158 lb)01/28/2025 8:39 AM EITPbxnkv636.1 cm (5' 5 )11/29/2022 3:23 PM EDTBody Mass Index26.2909 3:23 PM EDT Plan of Treatment Not on file Procedures Procedure NamePriorityDate/TimeAssociated DiagnosisCommentsUS OB BPP W NON-SMGXEI3702/12/2025 8:46 PM EST ALL CBC WITH AUTO DVIGRqqgwhm37/25/2025 4:15 PM EST [facility] DRUG SCREEN RAPID (URINE)Jmwmdvw5802/12/2025 4:00 PM EST [facility] UA (CLEAN/CATCH) FISHER OYSTER/MICRO IF IND.Jiiumcy3902/12/2025 4:00 PM EST US OB BPP W NON-DLAHJS0402/05/2025 7:47 PM EST ALL THYROID STIM VVSPLBOVfjxerc21/18/2025 2:42 PM EST US OB FOLLOW UP TRANSABDOMINAL MFTYNVCQVbifzhe37/17/2025 8:26 AM EST Thyroid disease History of prior with IUGR Hypothyroidism, unspecified type POCT URINALYSIS MKZCDLZQXvbnnii69/10/2025 8:40 AM EST Third trimester ([facility]) POCT URINALYSIS RRSIGJIGNaacllt17/27/2025 8:40 AM EDT Third trimester ([facility]) POCT URINALYSIS QSDJAZAYPkearwp54/13/2025 11:29 AM EDT Third trimester ([facility]) US OB FOLLOW UP TRANSABDOMINAL HESQRISFDiyyjwp31/13/2025 10:55 AM EDT Size of fetus inconsistent with dates in second trimester ([facility]) GLUCOSE TOLERANCE 3 IVVKTbzceml82/24/2025 8:42 AM EDT ALL THYROID STIM WVCOTAVDnahklx49/23/2025 9:34 AM EDT GLUCOSE 1 LTYALkpsciu06/23/2025 9:34 AM EDT ALL CBC WITH AUTO RDLTThovcfe33/23/2025 9:34 AM EDT POCT URINALYSIS QHQKHGUWDmkydzo32/22/2025 10:28 AM EDT Second trimester ([facility]) from Last 3 Months Results * US OB BPP W NON-STRESS (02/12/2025 8:46 PM EST) Only the most recent of2 resultswithin the time period is included. Anatomical RegionLateralityModalityOtherSpecimen (Source)Anatomical Location / LateralityCollection Method / VolumeCollection TimeReceived Time02/12/2025 8:46 PM EST Narrative 02/12/2025 9:25 PM EST [facility] ?[address] ? [place] [address] ? Ultrasound Report ? Signed ? Patient: YANA PAYNE ?MR#: [id number] ?? : 2000 ?Acct:[id number] ?? Age/Sex: 25 / F ?ADM Date: 02/12/25 ?? Loc: [facility] ??250-1 ? Attending Dr: Shauna Marshall D.O. ? Ordering Physician: Shauna Marshall D.O. ?? Date of Service: 02/12/25 ?? Procedure(s): US OB BPP w non-stress ?? Accession Number(s): [id number] ? cc: Shauna Marshall D.O.; Physician,Non-Staff MMadisyn ? [facility] ? [address] ? [place] [address] ? Patient Name: ?? YANA PAYNE ? MRN: [facility]:[id number] ? date: 2000 ?Sex: F ?? Assigned Patient Location: [facility] ?? Current Patient Location: FBCO ?? Accession/Order Number: [id number] ?? Exam Date: 02/12/2025 ??14:55 ?Report Date: [...] M.D. ??02/12/2025 8:46 PM ? Dictation Location: RADIO-PC-29 ? Electronically authenticated by: [id number] ??Y ?? Date: 02/12/2025 ??20:46 ? Dictated By: ?Ramakrishna Santiago M.D. ? Signed By: ?02/12/252124 ? DD/ 45 ? TD/TT: ? Admission Nurse: Procedure Note Radiology, Radiologist, - 02/12/2025 [place] [address] Ultrasound Report Signed Patient: YANA PAYNE RMR#: [id number] : 2000Acct:[id number] Age/Sex: 25 / FADM Date: 02/12/25 Loc: [facility] 250-[address]: Shauna Marshall D.O. Ordering Physician: Shauna Marshall D.O. Date of Service: 02/12/25 Procedure(s): US OB BPP w non-stress Accession Number(s): [id number] cc: Shauna Marshall D.O.; Physician,Non-Staff MMadisyn The [address] [address] Patient Name: YANA PAYNE MRN: [facility]:[id number] date: 2000 Sex: F Assigned Patient Location: [facility] Current Patient Location: [facility] Accession/Order Number: [id number] Exam Date: 02/12/2025 14:55 Report Date: 02/12/2025 20:46 At the request of: SHAUNA MARSHALL DO Procedure: US OB BPP w non-stress Ultrasound biophysical profile COMPARISON: 02/05/2025 INDICATION: Hypothyroidism FINDINGS IMPRESSION: Cephalic position. heart rate 153 bpm. AFI17.4 cm. Biophysical profile score 8/8 Impression dictated by: Ramakrishna Santiago M.D. 02/12/2025 8:46 PM Dictation Location: [place] [address] Electronically authenticated by: [id number] Y Date: 0:46 Dictated By: Ramakrishna Santiago M.D. Signed By:02/12/252124 DD/ 45 TD/TT: Admission Nurse: Authorizing ProviderResult TypeResult StatusCorey Joanna DOCLINISYNC IMAGINGFinal Result * (ABNORMAL) ALL CBC WITH AUTO DIFF (02/12/2025 4:15 PM EST) Only the most recent of2 resultswithin the time period is included. ComponentValueRef RangeTest MethodAnalysis TimePerformed AtPathologist Signature TB[facility] WBC9.84.0 - 11.0 10 3/uLTBHTBH RBC3.28(L)4.20 - 5.40 10 6/uLTBHTBH HGB10.0 (L)12.0 - 16.0 g/dLTBHTBH HCT30.7(L)36.0 - 48.0 %TBHTBH MCV93.681.0 - 99.0 fLTBH TBH MCH30.526.7 - 34.0 pgTBHTBH MCHC32.629.9 - 35.2 g/dLTBHTBH RDW13.011.0 - 15.0 %TBHTBH RSV833241 - 450 10 3/uLTBHTBH MPV11.39.5 - 13.5 fLTBHNEUTROPHILS PERCENT AUTO75.9(H)43.0 - 75.0 %TBHLYMPHOCYTES PERCENT AUTO16.6(L)20.5 - 60.0 % TBHMONOCYTES PERCENT AUTO6.21.7 - 12.0 %TBHTBH EO %0.6(L)0.9 - 7.0 %TBHBASOPHILS PERCENT AUTO0.30.2 - 2.0 %TBHIMMATURE GRANULOCYTES PCT AUTO0.40.0 - 0.5 %TBH NEUTROPHILS ABSOLUTE AUTO7.4(H)1.4 - 6.5 10 3/uLTBHLYMPHOCYTES ABSOLUTE AUTO1.6 1.2 - 3.8 10 3/uLTBHMONOCYTES ABSOLUTE AUTO0.60.3 - 0.8 10 3/uLTBHTBH EO #0.10.0 - 0.7 10 3/uLTBHBASOPHILS ABSOLUTE AUTO0.00.0 - 0.1 10 3/uLTBHIMMATURE GRANULOCYTES ABS AUTO0.04(H)0.00 - 0.03 10 3/uLTBHSpecimen (Source)Anatomical Location / LateralityCollection Method / VolumeCollection TimeReceived Time 02/12/2025 4:15 PM EST02/12/2025 4:55 PM EST Narrative [facility] - 02/12/2025 5:09 PM EST Authorizing ProviderResult TypeResult StatusCorey Joanna DOCLINISYNCFinal Result Performing OrganizationAddressCity/State/ZIP CodePhone Number [facility] * (ABNORMAL) [facility] UA (CLEAN/CATCH) FISHER OYSTER/MICRO IF IND. (02/12/2025 4:00 PM EST) ComponentValueRef RangeTest MethodAnalysis TimePerformed AtPathologist SignatureCOLOR URINELT. YELLOWYELLOWTBHCLARITY URINECLEARCLEARTBHSPECIFIC GRAVITY URINE1.0101.005 - 1.025TBHPH URINE6.55.0 - 9.0TBHPROTEIN URINENEGATIVE NEG/TRACE mg/dLTBHGLUCOSE URINE UA250(A)NEGATIVE mg/dLTBHBILIRUBIN URINE NEGATIVENEGATIVETBHKETONES URINE15(A)NEGATIVE mg/dLTBHBLOOD URINETRACE-I NEGATIVETBHNITRITE URINENEGATIVENEGATIVETBHUROBILINOGEN URINE0.20.2 - 1.0 EU/dLTBHLEUKOCYTE ESTERASE URINENEGATIVENEGATIVETBHURINE MICROSCOPIC INDICATED YESTBHSpecimen (Source)Anatomical Location / LateralityCollection Method / VolumeCollection TimeReceived Time02/12/2025 4:00 PM EST02/12/2025 4:55 PM EST Narrative [facility] - 02/12/2025 5:07 PM EST Authorizing ProviderResult TypeResult StatusCorey Joanna DOCLINISYNCFinal Result Performing OrganizationAddressCity/State/ZIP CodePhone Number [facility] * [facility] DRUG SCREEN RAPID (URINE) (02/12/2025 4:00 PM EST)ComponentValueRef Range Test MethodAnalysis TimePerformed AtPathologist SignatureCANNABINOID SCREEN URINENEGATIVENEGATIVETBHPHENCYCLIDINE SCREEN URINENEGATIVENEGATIVETBHCOCAINE SCREEN URINENEGATIVENEGATIVETBHMETHAMPHETAMINES SCREEN URINENEGATIVENEGATIVE TBHOPIATE SCREEN URINENEGATIVENEGATIVETBHAMPHETAMINE SCREEN URINENEGATIVE NEGATIVETBHBENZODIAZEPINES SCREEN URINENEGATIVENEGATIVETBHTRICYCLIC ANTIDEPRESSANT URINENEGATIVENEGATIVETBHMETHADONE SCREEN URINENEGATIVENEGATIVE TBHBARBITURATES SCREEN URINENEGATIVENEGATIVETBHOXYCODONE SCREEN URINENEGATIVE NEGATIVETBHBUPRENORPHINE SCREEN URINENEGATIVENEGATIVETBHComment: DRUG CLASS TEST SYSTEM CUT-OFF CONCENTRATIONS ARE FOLLOWS: AMP (Amphetamine): 500 ng/mL BAR (Barbiturates): 200 ng/mL BZO (Benzodiazepines): 150 ng/mL BUP (Buprenorphine): 10 ng/mL INGRID (Cocaine): 150 ng/mL mAMP (Methamphetamine): 500 ng/mL MTD (Methadone): 200 ng/mL OPI (Opiates): 100 ng/mL OXY (Oxycodone): 100 ng/mL PCP (Phencyclidine): 25 ng/mL THC (Cannabinoids): 50 ng/mL TCA (Trycyclic Antidepressants): 300 ng/mL Specimen (Source)Anatomical Location / LateralityCollection Method / Volume Collection TimeReceived Time02/12/2025 4:00 PM EST02/12/2025 4:55 PM EST Narrative [facility] - 02/12/2025 5:25 PM EST Authorizing ProviderResult TypeResult StatusCorey Joanna DOCLINISYNCFinal Result Performing OrganizationAddSuburban Community Hospitalty/State/ZIP CodePhone Number [facility] * ALL THYROID STIM HORMONE (02/05/2025 2:42 PM EST) Only the most recent of2 resultswithin the time period is included. ComponentValueRef RangeTest MethodAnalysis TimePerformed AtPathologist Signature THYROID STIMULATING HORMONE1.3280.358 - 3.740 uIU/mLTBHSpecimen (Source) Anatomical Location / LateralityCollection Method / VolumeCollection Time Received Time02/05/2025 2:42 PM EST02/05/2025 2:44 PM EST Narrative [facility] - 02/05/2025 3:43 PM EST Authorizing ProviderResult TypeResult StatusKrsunny Bertha NPCLINISYNCFinal ResultPerforming OrganizationAddressCity/State/ZIP CodePhone Number [facility] * US OB follow up transabdominal approach [...] Padilla MD Authorizing ProviderResult TypeResult StatusAbril Stone NPIMSCRIPPS MEM[facility] PROCEDURESFinal Result * POCT urinalysis dipstick manually resulted (01/28/2025 8:40 AM EST) Only the most recent of4 resultswithin the time period is included. ComponentValueRef [...] Location / LateralityCollection Method / VolumeCollection TimeReceived AikoWlzuy07/10/2025 8:40 AM EST Narrative Authorizing ProviderResult TypeResult StatusShauna Marshall DOPOINT OF CARE TEST ENTER/EDIT ORDERABLESFinal Result [...] 12/12/2024 12:31 PM EDT Authorizing ProviderResult TypeResult StatusErum MELENDEZ BLOOD ORDERABLES Final ResultPerforming OrganizationAddressCity/State/ZIP CodePhone Number [facility] * (ABNORMAL) GLUCOSE 1 HOUR (12/11/2024 9:34 AM EDT)ComponentValueRef RangeTest MethodAnalysis TimePerformed AtPathologist SignatureGLUCOSE 1 PDSJ411(H)<130 mg/dLTBHSpecimen (Source)Anatomical Location / LateralityCollection Method / VolumeCollection TimeReceived Time12/11/2024 9:34 AM EDT12/11/2024 10:16 AM EDT Narrative [facility] - 12/11/2024 10:57 AM EDT Authorizing ProviderResult TypeResult StatusAmy Covel PALAB BLOOD ORDERABLES Final ResultPerforming OrganizationAddressCity/State/ZIP CodePhone Number [facility] from Last 3 Months Insurance Care Teams Team MemberRelationshipSpecialtyStart DateEnd Date Carrillo White MD [facility] [place] [address] PCP - GeneralInternal Medicine11/29/22
--- OUTSIDE RECORDS SUMMARY | 2025-02-15 18:01 | XMS_ITS | Encounter Summary ---
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 Name Role Phone Carrillo White MD Primary Care Provider [phone] Encounter Details DateTypeDepartmentCare Team (Latest Contact Info)Aqsbakuzlzq34/25/2025linisync Result Encounter NOMS External Department Unsolicited Santosh Marshall, DO [address] [place] [address] Social History Tobacco UseTypesPacks/DayYears UsedDateSmoking Tobacco: NeverAlcohol UseStandard Drinks/WeekCommentsYes0 (1 standard drink = 0.6 oz pure alcohol)occasional alcohol useEstimated Date of ZqaidqhlDqhzrgnhGdy82/03/2026ased on last menstrual period of 06/16/2024Sex and Gender InformationValueDate RecordedSex Assigned at BirthNot on fileLegal RofOajjou39/15/2023 10:14 PM EDTGender IdentityNot on fileSexual OrientationNot on filedocumented as of this encounter Plan of Treatment Not on file documented as of this encounter Procedures Procedure NamePriorityDate/TimeAssociated DiagnosisCommentsALL CBC WITH AUTO YZBSGaecqth23/25/2025 4:15 PM EST [facility] UA (CLEAN/CATCH) CERTIFIED ADAPTED PHYSICAL EDUCATOR/MICRO IF IND.Kuphxho7602/12/2025 4:00 PM EST [facility] DRUG SCREEN RAPID (URINE)Btfpsbu9202/12/2025 4:00 PM EST documented in this encounter Results * (ABNORMAL) ALL CBC WITH AUTO DIFF (02/12/2025 4:15 PM EST)ComponentValueRef RangeTest MethodAnalysis TimePerformed AtPathologist SignatureTBH WBC9.84.0 - 11.0 10 3/uLTBHTBH RBC3.28(L)4.20 - 5.40 10 6/uLTBHTBH HGB10.0(L)12.0 - 16.0 g/dLTBHTBH HCT30.7(L)36.0 - 48.0 %TBHTBH MCV93.681.0 - 99.0 fLTBHTBH MCH30.5 26.7 - 34.0 pgTBHTBH MCHC32.629.9 - 35.2 g/dLTBHTBH RDW13.011.0 - 15.0 %TBHTBH TQH875382 - 450 10 3/uLTBHTBH MPV11.39.5 - 13.5 fLTBHNEUTROPHILS PERCENT AUTO 75.9(H)43.0 - 75.0 %TBHLYMPHOCYTES PERCENT AUTO16.6(L)20.5 - 60.0 %TBH MONOCYTES PERCENT AUTO6.21.7 - 12.0 %TBHTBH EO %0.6(L)0.9 - 7.0 %TBHBASOPHILS PERCENT AUTO0.30.2 - 2.0 %TBHIMMATURE GRANULOCYTES PCT AUTO0.40.0 - 0.5 %TBH NEUTROPHILS ABSOLUTE AUTO7.4(H)1.4 - 6.5 10 3/uLTBHLYMPHOCYTES ABSOLUTE AUTO 1.61.2 - 3.8 10 3/uLTBHMONOCYTES ABSOLUTE AUTO0.60.3 - 0.8 10 3/uLTBHTBH EO # 0.10.0 - 0.7 10 3/uLTBHBASOPHILS ABSOLUTE AUTO0.00.0 - 0.1 10 3/uLTBHIMMATURE GRANULOCYTES ABS AUTO0.04(H)0.00 - 0.03 10 3/uLTBHSpecimen (Source)Anatomical Location / LateralityCollection Method / VolumeCollection TimeReceived Time 02/12/2025 4:15 PM EST02/12/2025 4:55 PM EST Narrative [facility] - 02/12/2025 5:09 PM EST Authorizing ProviderResult TypeResult StatusCorey Joanna DOCLINISYNCFinal Result Performing OrganizationAddressCity/State/ZIP CodePhone Number [facility] * [facility] DRUG SCREEN RAPID (URINE) (02/12/2025 [...] [facility] * (ABNORMAL) [facility] UA (CLEAN/CATCH) CERTIFIED ADAPTED PHYSICAL EDUCATOR/MICRO IF IND. (02/12/2025 4:00 PM EST) ComponentValueRef [...] Result Performing OrganizationAddressCity/State/ZIP CodePhone Number [facility] documented in this encounter Visit Diagnoses Not on filedocumented in this encounter Care Teams Team MemberRelationshipSpecialtyStart DateEnd Carrillo White MD [address] [place] [address] PCP - GeneralInternal Medicine11/29/22documented as of this encounter
--- OUTSIDE RECORDS SUMMARY | 2025-02-15 18:02 | XMS_ITS | Encounter Summary ---
Author Organization [facility] Address [address] [place] [address] Care Team Providers Care Nutrition Partner Name Role Phone Carrillo White MD Primary Care Provider [phone] Encounter Details DateTypeDepartmentCare Team (Latest Contact Info)Kosknztgiye52/18/2025linisync Result Encounter NOMS External Department Unsolicited Shauna Marshall, DO [address] [place] [address] Social History Tobacco UseTypesPacks/DayYears UsedDateSmoking Tobacco: NeverAlcohol UseStandard Drinks/WeekCommentsYes0 (1 standard drink = 0.6 oz pure alcohol)occasional alcohol useEstimated Date of XpabcujyKrezswyaOlk11/03/2026Based on last menstrual period of 06/16/2024Sex and Gender InformationValueDate RecordedSex Assigned at BirthNot on fileLegal KnwBnzool59/15/2023 10:14 PM EDTGender IdentityNot on fileSexual OrientationNot on filedocumented as of this encounter Plan of Treatment Not on file documented as of this encounter Procedures Procedure NamePriorityDate/TimeAssociated DiagnosisCommentsUS OB BPP W NON-ZQXMXA3202/05/2025 7:47 PM EST documented in this encounter Results * US OB BPP W NON-STRESS (02/05/2025 7:47 PM EST)Anatomical Region LateralityModalityOtherSpecimen (Source)Anatomical Location / Laterality Collection Method / VolumeCollection TimeReceived Time02/05/2025 7:47 PM EST Narrative 02/05/2025 7:49 PM EST [facility] ?[address] ? [place], [facility] ? Ultrasound Report ? Signed ? Patient: KERRY,YANA R ?MR#: [id number] ?? : 2000 ?Acct:[id number] ?? Age/Sex: 25 / F ?ADM Date: 11/18/25 ?? Loc: US ? Attending Dr: Shauna Marshall D.O. ? Ordering Physician: Shauna Marshall D.O. ?? Date of Service: 02/05/25 ?? Procedure(s): US OB BPP w non-stress ?? Accession Number(s): [id number] ? cc: Shauna Marshall D.O.; Physician,Non-Staff Ravi ? [facility] ? [address] ? [place] [address] ? Patient Name: ?? YANA PAYNE ? MRN: [facility]:[id number] ? date: 2000 ?Sex: F ?? Assigned Patient Location: ?? Current Patient Location: ? Accession/Order Number: [id number] ?? Exam Date: 02/05/2025 ??13:02 ?Report Date: [...] Dictation Location: RADIO-PC-20 ? Electronically authenticated by: [id number] ??Y ?? Date: 02/05/2025 ??19:47 ? Dictated By: ?Panfilo Saul.O. ? Signed By: ?02/05/ 1951 ? DD/ 1949 ? TD/TT: ? Pre Assembly Wirer: Procedure Note Radiology, Radiologist, MD - 02/05/[address] [address] Ultrasound Report Signed Patient: YANA PAYNE RMR#: [id number] : 2000Acct:[id number] Age/Sex: 25 / FADM Date: 02/05/25 Loc: US Attending Dr: Shauna Marshall D.O. Ordering Physician: Shauna Marshall D.O. Date of Service: 02/05/25 Procedure(s): US OB BPP w non-stress Accession Number(s): [id number] cc: Shauna Marshall D.O.; Physician,Non-Staff Ravi The [place] [id number] Patient Name: YANA PAYNE MRN: [facility]:[id number] date: 2000 Sex: F Assigned Patient Location: US Current Patient Location: Accession/Order Number: [id number] Exam Date: 02/05/2025 13:02 Report Date: 02/05/2025 [...] Saul M.D. 02/05/2025 7:47 PM Dictation Location: [place] [address] Electronically authenticated by: [id number] Y Date: 9:47 Dictated By: Panfilo Saul D.O. Signed By:02/05/251948 DD/ 46 TD/TT: Pre Assembly Wirer: Authorizing ProviderResult TypeResult StatusCorey Joanna DOCLINISYNC IMAGINGFinal Result documented in this encounter Visit Diagnoses Not on filedocumented in this encounter Care Teams Team MemberRelationshipSpecialtyStart DateEnd Date Carrillo White MD [address] [place] [address] PCP - GeneralInternal Medicine11/29/22documented as of this encounter
[2025-02-15 18:09] VITALS: BP 128/75; PULSE 105
--- NOTE | 2025-02-15 18:22 | PC.NURSE ---
Addendum entered by Mariel Peng 02/15/25 18:32: Pt denies pain or tenderness with palpation to abdomen. Original Note: Pt complaining of period-like cramping that occurs occasionally with abdominal tightness and vaginal pressure. Pt denies vaginal bleeding or leaking of fluid. Pt denies recent sexual intercourse. Pt voices having regular bowel movements. Pt denies UTI s/s. Pt states she stayed overnight on Tuesday for the same symptoms and states she is not feeling much better. Pt states she has a hx of delivery and states her labor lasted 4 hours and was hospitalized in [place] during that from 23 weeks until delivery. Pt states she was given Celestone IM x2 doses and that her cervix was dilated 3-4cm. Pt reports active movement. PO fluids at bedside. Pt abdomen palpates soft at this time. FHR and UC monitors placed on pt abdomen at this time. movement felt per palpation.
--- OUTSIDE RECORDS SUMMARY | 2025-02-15 19:22 | XMS_ITS | CCD ---
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 Name Role Phone JOANNA, DR VILLATORO [...] Physician Norberto, Ya L Primary Care Physician [phone] Norberto, Ya L Admitting Unavailable Norberto, Ya [...] Primary Care Provider Carmita Jurado MD Unavailable [phone] CARMITA JURADO Referring Unavailable CARMITA JURADO Attending [...] (Original)acetaminophen 500 mg oral tablet (3 sources)Start: 67-10-6037dztl 2 tablets by mouth every eight hours [...] oral capsule (2 sources)Cephalosporin AntibacterialStart: 03-09-2023 End: 40-80-2930dmyb 1 capsule by mouth four times dailyKeflex 500 mg Cap 500 mg = 1 cap(s), Oral, QID, X 7 day(s), # 28 cap(s), Refills(s) 0, Pharmacy: [facility] #[facility], 166, cm, 03/09/23 7:33:00 EST, Height/Length Dosing, 58.7, kg, 03/09/23 7:33:00 EST, Weight Dosing Start Date: 03/09/23 Stop Date: 03/16/23 Status: OrderedColace (3 sources)Start: 64-18-0469Giocvc Refills(s) 0 Start Date: 11/30/22 Status: OrderedStart: 06-01-2021 End: 59-15-5009xyly 1 capsule by mouth in the morning, then take 1 capsule by mouth at bedtimedocusate sodium (COLACE) 100 mg capsule Take 1 capsule (100 mg total) by mouth in the morning and 1capsule (100 mg total) before bedtime. 10 capsule 06/01/2021 11/05/2024 Discontinued (Therapy completed)Flonase (3 sources)CorticosteroidStart: 28-55-8339Tjsslzs Nasal, Daily, Refill(s) 0 Start Date: 09/10/18 Status: OrderedFREESTYLE LITE METER kit (3 sources)Start: 52-00-5062PLVOWRAZB LITE METER kit See Admin Instructions. 03/26/2021 Activehydrocortisone acetate 0.025 mg/mg / lidocaine hydrochloride 0.03 mg/mg rectal gel (2 sources)Antiarrhythmic, Corticosteroid, Amide Local AnestheticStart: 73-19-8520eixjtvztydsarh-lidocaine 2.5%-3% rectal gel with applicator 1 carmen, Rectal, BID, 60 EA, Refill(s) 1,[facility] #[id number], 166, cm, 11/11/22 9:28:00 EDT, Height/Length Dosing, 59.4, kg, 11/11/22 9:28:00 EDT, Weight Dosing Start Date: 11/19/22 Status: OrderedStart: 30-38-0882maknnfdezmbdqr-lidocaine 2.5%-3% rectal gel with applicator 1 carmen, Rectal, BID, 60 EA, Refill(s) 1,[facility] #[facility], 166, cm, 11/11/22 9:28:00 EDT, Height/Length Dosing, 59.4, kg, 11/11/22 9:28:00 EDT, Weight Dosing Start Date: 11/11/22 Status: Orderedlevothyroxine sodium 0.125 mg oral tablet (20 sources)l-ThyroxineStart: 09-17-2024 End: 16-64-4587dqed 1 tablet by mouth before mealtimelevothyroxine (Synthroid) 125 MCG tablet Indications: Thyroid disease Take 1 tablet (125 mcg) by mouth in the morning. Take before meals. 30 tablet 11 09/17/2024 09/17/2025 ActiveStart: 08-22-2024 End: 76-94-9083geyj 1 tablet by mouth before mealtimelevothyroxine (Synthroid) 25 MCG tablet Indications: Thyroid disease Take 1 tablet (25 mcg) by mouth in the morning. Take before meals. 30 tablet 11 08/22/2024 10/15/2024 Discontinued Start: 93-57-9990fovy 1 tablet by mouth once dailySynthroid 100 mcg Tab 100 mcg = 1 tab(s), Oral, Daily, # 90 tab(s), Refills(s) 0, Pharmacy: [facility], 166, cm, 08/08/23 15:44:00 EDT, Height/Length Dosing, 56.1, kg, 08/08/23 15:51:00 EDT, Weight Dosing Start Date: 06/19/24 Status: Ordered Quantity: 90.0 Unit: tab(s) Repeat number: 1Start: 06-19-2024 End: 68-98-6031lvtd 1 tablet by mouth once dailylevothyroxine (Synthroid, Levoxyl) 100 MCG tablet Take 100 mcg by mouth Daily 06/19/2024 10/15/2024 DiscontinuedStart: 88-17-4225bhka 1 tablet by mouth once dailySynthroid 100 mcg Tab 100 mcg = 1 tab(s), Oral, Daily, # 90 tab(s), Refills(s) 1, Pharmacy: [facility] #37, 166, cm, 05/16/23 14:25:00 EST, Height/Length Dosing, 56.7, kg, 05/16/23 14:25:00 EST, Weight Dosing Start Date: 05/16/23 Status: OrderedStart: 49-12-4040xaar 1 tablet by mouth once dailySynthroid 112 mcg Tab 112 mcg = 1 tab(s), Oral, Daily, # 60 tab(s), Refills(s) 0, Pharmacy: [facility] #[facility], 166, cm, 11/30/22 12:12:00 EDT, Height/Length Dosing, 58.8, kg, 11/30/22 12:12:00 EDT, Weight Dosing Start Date: 02/07/23 Status: OrderedStart: 21-35-6180uxqv 1 tablet by mouth once dailySynthroid 112 mcg Tab 112 mcg = 1 tab(s), Oral, Daily, # 60 tab(s), Refills(s) 0, Pharmacy: [facility] #[facility], 166, cm, 10/08/22 15:10:00 EDT, Height/Length Dosing, 57.8, kg, 10/08/22 15:10:00 EDT, Weight Dosing Start Date: 10/08/22 Status: OrderedStart: 10-08-2022 End: 45-63-5855hmoe 1 tablet by mouth in the morninglevothyroxine (Synthroid, Levoxyl) 112 MCG tablet Take 112 mcg by mouth in the morning. 10/08/2022 0 08/17/2024 DiscontinuedStart: 67-37-8387unhh 1 tablet by mouth once daily levothyroxine 125 mcg (0.125 mg) Tab 125 mcg = 1 tab(s), Oral, Daily, # 90 tab(s), Refills(s) 3, Pharmacy: [facility] #[facility], 166, cm, 05/03/22 14:21:00 EST, Height/Length Dosing, 61.2, kg, 05/03/22 14:21:00 EST, Weight Dosing Start Date: 05/03/22 Status: Orderedlevothyroxine (SYNTHROID, LEVOTHROID) 100 MCG tablet Take 125 mcg by mouth in the morning. Activeloratadine 10 mg oral tablet (13 sources)Start: 21-58-9673iypg 1 tablet by mouth once dailyClaritin 10 mg Tab 10 mg, Oral, Daily, # 10 tab(s), Refills(s) 0, Pharmacy: [facility] #[facility], 166, cm, 12/05/19 13:03:00 EDT, Height/Length Dosing, 61.6, kg, 12/05/19 13:03:00 EDT, Weight Dosing Start Date: 12/05/19 Status: Ordered Quantity: 10.0 Unit: tab(s) Repeat number: 1magnesium oxide 400 mg oral tablet (5 sources)Start: 08-17-2024 End: 15-69-4887ybck 1 tablet by mouth once dailymagnesium oxide (Mag-Ox) 400 MG tablet Indications: Nonintractable headache, unspecified chronicitypattern, unspecified headache type Take 1 tablet (400 mg) by mouth Daily 30 tablet 6 08/17/2024 09/16/2024 Activephenazopyridine hydrochloride 200 mg oral tablet (4 sources)Start: 03-09-2023 End: 75-65-2127ftbp 1 tablet by mouth three times dailyPyridium 200 mg Tab 200 mg = 1 tab(s), Oral, TID, X 3 day(s), # 9 tab(s), Refills(s) 0, Pharmacy: [facility] #[facility], 166, cm, 03/09/23 7:33:00 EST, Height/Length Dosing, 58.7, kg, 03/09/23 7:33:00 EST, Weight Dosing Start Date: 03/09/23 Stop Date: 03/12/23 Status: OrderedStart: 02-21-2023 End: 62-25-8706fgpm 1 tablet by mouth three times dailyPyridium 200 mg Tab 200 mg = 1 tab(s), Oral, TID, X 3 day(s), # 9 tab(s), Refills(s) 0, Pharmacy: [facility] #[facility], 166, cm, 02/21/23 13:06:00 EST, Height/Length Dosing, 58.6, kg, 02/21/23 13:06:00 EST, Weight Dosing Start Date: 02/21/23 Stop Date: 02/24/23 Status: OrderedPNV no.95/ferrous fum/folic ac ( ORAL) (3 sources)PNV no.95/ferrous fum/folic ac ( ORAL) Take by mouth in the morning. ActivePNV no.95/ferrous fum/folic ac ( ORAL) Take by mouth daily. Activepolyethylene glycol 3350 059535 mg / potassium chloride 1480 mg / sodium bicarbonate 5720 mg / sodium chloride 28902 mg powder for oral solution (11 sources)Osmotic LaxativeStart: 74-99-1108SwNQBCLZ Paige oral powder for reconstitution See Instructions, 1 EA, Refill(s) 0, Prior to colonoscopy., [facility] #[id number], 166, cm, 11/30/22 12:12:00 EDT, Height/Length Dosing, 58.8, kg, 11/30/22 12:12:00 EDT, Weight Dosing Start Date: 11/30/22 Status: Ordered Quantity: 1.0 Unit: EA Repeat number: 1Prenatal MV-Min-Fe Fum-FA-DHA ( 1 PO) (20 sources) MV-Min-Fe Fum-FA-DHA ( 1 PO) Take by mouth Active Completed/Discontinued Medications MedicationDrug Class(es)DatesSig (Normalized)Sig (Original)ibuprofen 800 mg oral tablet (2 sources)Nonsteroidal Anti-inflammatory DrugStart: 06-01-2021 End: 52-75-3725ylcf 1 tablet by mouth every eight hours as neededibuprofen (ADVIL,MOTRIN) 800 mg tablet Take 1 tablet (800 mg total) by mouth every 8 (eight) hours as needed (cramping). 30 tablet 06/01/2021 11/05/2024 Discontinued (Therapy completed)nitrofurantoin, macrocrystals 25 mg / nitrofurantoin, monohydrate 75 mg oral capsule (6 sources)Nitrofuran AntibacterialStart: 09-11-2024 End: 82-51-8674iyxr 1 capsule by mouth in the morningnitrofurantoin, macrocrystal-monohydrate, (Macrobid) 100 MG capsule Indications: Urinary tract infection without hematuria, site unspecified Take 1 capsule (100 mg) by mouth in the morning and 1 capsule (100 mg) before bedtime. Do all this for 7 days. 14 capsule 09/11/2024 09/18/2024 ExpiredStart: 02-21-2023 End: 84-87-0432qmuh 1 capsule by mouth every twelve hoursMacrobid 100 mg Cap 100 mg = 1 cap(s), Oral, q12hr, X 5 day(s), # 10 cap(s), Refills(s) 0, Pharmacy: [facility], 166, cm, 02/21/23 13:06:00 EST, Height/Length Dosing, 58.6, kg, 02/21/23 13:06:00 EST, Weight Dosing Start Date: 02/21/23 Stop Date: 02/26/23 Status: Orderedprogesterone (FIRST-PROGESTERONE VGS) 200 mg suppository (2 sources)Start: 03-26-2021 End: 09-56-9386ekmoschnxygl (FIRST-PROGESTERONE VGS) 200 mg suppository Indications: Hypothyroid [...] Problems Problem ClassificationProblemDateDocumented DateEpisodic/ChronicAbdominal pain (13 sources)Abdominal unoz42-23-5168XjqxfdlrWaqiugjqu infection; unspecified site (1 source)Infection due to Escherichia coli; Translations: [Unspecified Escherichia coli [E. coli] as the cause of diseases classified elsewhere]Onset: 35-55-0087VkfevsorKzxqhrcj or abnormal glucose tolerance complicating ; childbirth; or the puerperium (18 sources)History of gestational diabetes mellitus; Translations: [Gestational diabetes mellitus]Onset: 05-19-2021 Resolved: 833892-73-0336UuhlwapnJfjlcqwgtkcng symptoms and ill-defined conditions (4 sources)Dysuria; Translations: [Dysuria]Onset: 66-36-4603LxuzwwiwQrppqjbe; including migraine (13 sources)Migraine without yvca31-27-0743KvfpjlmEdddxzmw; including migraine (6 sources)Headache; Translations: [Nonintractable headache, unspecified chronicity pattern, unspecified headache type]30-93-8619SctqlaepYtgpvhnmqk during ; abruptio placenta; placenta previa (4 sources)Low lying placenta; Translations: [Low lying placenta NOS or without hemorrhage, unspecified trimester]Onset: 146224-47-1803SnkbifsrXmwqpfrcurc (15 sources)Hemorrhoids; Translations: [Unspecified hemorrhoids]Onset: 44-81-6983EpdchcfgLkrpoghczazht and screening for infectious disease (4 sources)Encounter for screening for human papillomavirus (HPV); Translations: [Contact with and (suspected)exposure to infections with a predominantly sexual mode of transmission]Onset: 086881-08-5550KwvrevmpCdwlzxfkauoi; infection of eye (except that caused by tuberculosis or sexually transmitteddisease) (4 sources)Xrcblkydo25-60-2803IyivknmqQucmcvdml disorders (15 sources)Dysmenorrhea; Translations: [Dysmenorrhea, unspecified]Onset: 304155-44-9599MhlfgipQnwnf complications of (5 sources)Endocrine, nutritional and metabolic diseases complicating , unspecified trimester; Translations: [ENDOCRN NUTR MET DZ COMP PG UNS TRI]Onset: 91-68-2939DhknleqbCmzvd complications of (2 sources)Thyroid disease in mother complicating , childbirth AND/OR puerperium; Translations: [Endocrine, nutritional and metabolic diseases complicating , unspecified trimester]51-16-6134WxfskljhYberr complications of (8 sources)Hypothyroidism in ; Translations: [Endocrine, nutritional and metabolic diseases complicating , unspecified trimester]Onset: 613663-83-3363LcmmcgenGkhdu complications of (3 sources)History of gynecological disorder; Translations: [Supervision of with other poor reproductive or obstetric history, unspecified trimester]Onset: 678796-61-7549QqgxadgpAoxhy complications of (2 sources) size does not accord with dates; Translations: [Uterine size- date discrepancy, second trimester]60-91-5772BuznmxclAhame endocrine disorders (4 sources)Kzdavqrwayzg16-71-2857TrvtmmlRkcel eye disorders (4 sources)Eye vehbssj59-81-0893MxiozrgsIrhnf female genital disorders (4 sources)Lesion of irkvs18-11-7508LrtjagmqBaufr female genital disorders (1 source)Noninflammatory disorder of vulva; Translations: [Other specified noninflammatory disorders of vulva and perineum]Onset: 18-33-8808LzaylgwuHeqxo female genital disorders (2 sources)Vaginal discharge; Translations: [Other specified noninflammatory disorders of vagina]97-94-8683ClgeojphSntam gastrointestinal disorders (4 sources)Zyenomvkahzn17-19-8561KmrmfgccZarqd gastrointestinal disorders (1 source)Digestive system finding; Translations: [Other specified symptoms and signs involving the digestivesystem and abdomen]Onset: 92-84-8261XdcsrqjlBtlsz gastrointestinal disorders (1 source)Constipation, unspecified; Translations: [Constipation, unspecified] Onset: 92-92-9092CrzdkkoiZqzns inflammatory condition of skin (4 sources)Pruritus ani; Translations: [Pruritus ani]Onset: 26-19-5980Nfufvqgy Other lower respiratory disease (13 sources)H/O: respiratory hgisjrv33-43-7291AcetjecnNymuf nutritional; endocrine; and metabolic disorders (12 sources)Weight jihl05-41-8565TcuwjzbzNmcrn nutritional; endocrine; and metabolic disorders (1 source)Abnormal weight loss; Translations: [Abnormal weight loss]Onset: 43-33-5814QknamsbyGmlhv and delivery including normal (20 sources)Encounter for supervision of normal first , first trimester; Translations: [Encounter for supervision of normal , unspecified, unspecified trimester]Onset: 78-04-9468ZrmeuyybIfzmc screening for suspected conditions (not mental disorders or infectious disease) (13 sources)Encounter for screening for malignant neoplasm of cervix; Translations: [Encounter for screening, unspecified]Onset: 12-09-2020 EpisodicResidual codes; unclassified (3 sources)Body mass index 20-24 - normal; Translations: [Body mass index (BMI) 21.0-21.9, adult]Onset: 40-76-4737FkwtnqfjEhezupog codes; unclassified (1 source)Family history of malignant neoplasm of digestive organ; Translations: [Family history of malignantneoplasm of digestive organs]Onset: 11-30-2022 EpisodicResidual codes; unclassified (11 sources)Family history of cancer of awtxc53-66-4216ItkiotykLnplzubu codes; unclassified (4 sources)Family history of autism; Translations: [Family history of other mental and behavioral disorders]Onset: 247525-80-3120AcaghmohVamalzta codes; unclassified (2 sources)Gestation period, 13 weeks; Translations: [13 weeks gestation of ]36-66-2028KbvtiywuIctbroja codes; unclassified (15 sources)History of previous intrauterine growth restricted ; Translations: [Personal history of other complications of , childbirth and the puerperium]Onset: 147803-21-0122RsutlskvJuiotavu codes; unclassified (2 sources)Gestation period, 17 weeks; Translations: [17 weeks gestation of ]15-90-1830ZwdqjnclNccwvhar codes; unclassified (1 source)Gestation period, 20 weeks; Translations: [20 weeks gestation of ]09-11-3371CrdmbmziEycduzmq codes; unclassified (7 sources)History of premature rupture of membranes; Translations: [Personal history of other complications of , childbirth and the puerperium]Onset: 431998-44-5462ScjgrqotWyxjnpxf codes; unclassified (2 sources)Gestation period, 21 weeks; Translations: [21 weeks gestation of ]26-99-2513BhrgnfibNckgvsnf codes; unclassified (2 sources)Personal history of other complications of , childbirth and the puerperium; Translations: [Personal history of other complications of , childbirth and the puerperium]Onset: 37-62-2729VwxrjqliBynccqjg codes; unclassified (1 source)20 weeks gestation of ; Translations: [20 weeks gestation of ]Onset: 55-28-5005ApwylzrpPzuengxe codes; unclassified (2 sources)Gestation period, 25 weeks; Translations: [25 weeks gestation of ]95-50-4843ZcusctpwBzshooug codes; unclassified (2 sources)Gestation period, 28 weeks; Translations: [28 weeks gestation of ]54-22-9217HnajaokmJfyxivpf codes; unclassified (2 sources)Gestation period, 30 weeks; Translations: [30 weeks gestation of ]18-93-6261JghdskukHbxooxme codes; unclassified (2 sources)Gestation period, 32 weeks; Translations: [32 weeks gestation of ]96-20-2244ZxagrskcMmsjmwa disorders (20 sources)Hypothyroidism, unspecified; Translations: [Hypothyroidism]Onset: 02-13-8428BvhzadvKgblofi disorders (12 sources)Disorder of thyroid, unspecified; Translations: [Disorder of thyroid gland]Onset: 27-98-7897KmrgyxplDtozywdnsymd (13 sources)Body mass index 20-24 - -92-3008Mqujzruadibh (13 sources)Sxe-ezbvbb29-39kgwrtw23-97-3558Rgtipxcwgptf (5 sources)Pain of knee qzigdi83-98-8062Npdwtntwcfvf (8 sources)Patient encounter sjxuhl29-81-6042Dgkosxastxne (3 sources)Rectum fmjtqyf63-17-7494Yoypdgkcgjad (8 sources)Finding of sensation of jgfkwby30-34-4439Aboowmjrgnta (1 source)Hx previous FGROnset: 83-44-2382Mllrsgg tract infections (13 sources)Acute cystitis; Translations: [Acute cystitis without hematuria] Onset: 02-76-4153Itiouedr Past or Other Problems Problem ClassificationProblemDateDocumented DateEpisodic/ChronicEarly or threatened labor (6 sources)Premature uterine contraction; Translations: [False labor before 37 completed weeks of gestation, third trimester]Onset: 04-21-2021 Resolved: 878615-15-0351MmxhzkyyZwjnp complications of (3 sources)Disorder of ; Translations: [Maternal care for other known or suspected poor growth,unspecified trimester, not applicable or unspecified]Onset: 03-03-2021 Resolved: 434366-26-7328TojjmpgmZdwff complications of (3 sources)Short cervical length in ; Translations: [Cervical shortening, third trimester]Onset: 05-19-2021 Resolved: 014462-66-2225DbqyuezeZelhy complications of (2 sources)Endocrine, nutritional and metabolic diseases complicating , second trimester; Translations: [Endocrine, nutritional and metabolic diseases complicating , second trimester]Onset: 55-06-9938PjmblqhsUcmkp female genital disorders (4 sources)Other specified noninflammatory disorders of vagina; Translations: [OTH SPEC NONINFLAMMATORY D/O VAGINA]Onset: 33-49-2266NuobvxboTkpkzkhuvtuvcr and other problems of amniotic cavity (3 sources) premature rupture of membranes ; Translations: [ premature rupture of membranes, unspecified as to length of time between rupture and onset of labor, unspecified trimester]Onset: 05-30-2021 Resolved: 498494-29-3649Nhjscdgy Results Test NameValueInterpretationReference RangeFacilityUrinalysis macro (dipstick) panel (U)on 99-68-9175Zqhtdcnwi, UANegativeNegative - 4(70) +++ mg/dLNOMS HealthcareBlood, UANegativeNegative [...] mg/dLNOMS HealthcareNOMS HealthcareUrinalysis macro (dipstick) panel (U)on 90-35-9328Pavbgadds, UA NegativeNegative - 4(70) +++ mg/dLNOMS HealthcareBlood, [...] - 1.03[facility] Urobilinogen, UA0.20.2 - 12 mg/dLNOPA HealthcareNOMS HealthcareUS OB FOLLOW UP TRANSABDOMINAL APPROACHon 82-98-4534XZ OB FOLLOW UP TRANSABDOMINAL APPROACH FINDINGS: A [...] Delivery: 03/23/25 Gestational Age as of 12/10/2024: 71n8pYxpsahrfac macro (dipstick) panel (U)on 01-17-3464Jkwivpxbj, UANegativeNegative - 4(70) +++ mg/dLNOMS HealthcareBlood, UANegativeNegative - 50 Cedric/mcLNOMS HealthcareClarity, UAClearNOMS Healthcare Color, UAYellowNOMS HealthcareGlucose, UANegativeNegative - 2000(110) ++++ mg/dL NOMS HealthcareInterpretation and review of laboratory resultsNormalNOPA HealthcareKetones, UANegativeNegative - 160(16) ++++ mg/dLNOPA Healthcare Leukocytes, UANegativeNegative - 500+++ Ayana/mcLNOMS HealthcareNitrite, UA NegativeNegative - PositiveNOMS HealthcarepH, UA7.05 - 9NOMS HealthcareProtein, UANegativeNegative - 2000(20) ++++ mg/dLNOPA HealthcareSpec Grav, UA1.0101 - 1.03NOPA HealthcareUrobilinogen, UA0.20.2 - 12 mg/dLNOMadison Medical CenterNOPA HealthcareGLUCOSE TOLERANCE 3 HOURon 65-55-6690GTGAUUA TOLERANCE 3 HOURHighmg/dL NOM HealthcareComment on above:GLU FAST 89 (<95) Col: 12/12/24 0842 GLU 1HR 178 (<180) Col: 12/12/24 0949 GLU 2HR 156H (<155) Col: 12/12/24 1041 GLU 3HR 103 (<140) Col: 12/12/24 1147 Interpretation and review of laboratory resultsAbnormalNOPA HealthcareCLINISYNC NOM HealthcareALL CBC WITH AUTO DIFFon 46-07-5305FAQLRUJIV ABSOLUTE OUXO9AZSWMadison Medical CenterBasophils/100 WBC (Bld)0.3 %0.2 - 2.0 %NOMS HealthcareEosinophils/100 WBC (Bld)0.5 %Low0.9 - 7.0 %[facility]' HospitalErythrocyte distribution width (RBC) [Ratio]12.4 %11.0 - 15.0 %NOMCedar County Memorial HospitalHematocrit (Bld) [Volume fraction]32.4 %Low36.0 - 48.0 %[facility] HospitalHemoglobin (Bld) [Mass/Vol]10.8 g/dLLow12.0 - 16.0 g/dLNOMadison Medical CenterIMMATURE GRANULOCYTES ABS AUTO0.03NOMadison Medical Center Immature granulocytes/100 WBC (Bld)0.3 %0.0 - 0.5 %[facility]' HospitalInterpretation and review of laboratory resultsAbnormalHarry S. Truman [facility] Veterans' HospitalLYMPHOCYTES ABSOLUTE AUTO1.3NOMadison Medical CenterLymphocytes/100 WBC (Bld)14.4 %Low20.5 - 60.0 %[facility] for ChildrenH (RBC) [Entitic mass]33.2 pg26.7 - 34.0 pgNOMadison Medical CenterMCHC (RBC) [Mass/Vol]33.3 g/dL29.9 - 35.2 g/dLNOPA HealthcareMCV (RBC) [Entitic vol]99.7 fL High81.0 - 99.0 fLNOPA HealthcareMONOCYTES ABSOLUTE AUTO0.4N[facility] Monocytes/100 WBC (Bld)4.6 %1.7 - 12.0 %NOMS HealthcareNEUTROPHILS ABSOLUTE AUTO 7HighNOPA HealthcareNeutrophils/100 WBC (Bld)79.9 %High43.0 - 75.0 %NOMS HealthcarePlatelet mean volume (Bld) [Entitic vol]10.5 fL9.5 - 13.5 fLNOPA HealthcareTBH EO #0NOMS HealthcareTBH VHN514THHT HealthcareTBH RBC3.25LowNOMS HealthcareTBH WBC8.8NOPA HealthcareCLINISYNCNOMS HealthcareUrinalysis macro (dipstick) panel (U)on 42-74-5666Zkmzeomks, UANegativeNegative - 4(70) +++ mg/dL N[facility] HealthcareBlood, UANegativeNegative - 50 Cedric/mcLNOMS HealthcareClarity, UA ClearNOMS HealthcareColor, UAYellowNOMS HealthcareGlucose, UANegativeNegative - 1999(110) ++++ mg/dLNOMS HealthcareInterpretation and review of laboratory resultsNormalNOPA HealthcareKetones, UANegativeNegative - 160(16) ++++ mg/dLNOMS HealthcareLeukocytes, UANegativeNegative - 500+++ Ayana/mcLNOMS HealthcareNitrite, UANegativeNegative - PositiveNOMS HealthcarepH, UA75 - 9NOMS HealthcareProtein, UANegativeNegative - 2000(20) ++++ mg/dLNOMS HealthcareSpec Grav, UA1.011 - 1.03 NOMS HealthcareUrobilinogen, UA0.20.2 - 12 mg/dLNOPA HealthcareNOPA Healthcare Urinalysis macro (dipstick) panel (U)on 79-60-7984Tcgzsunwp, UANegativeNegative - 4(70) +++ mg/dLNOMS HealthcareBlood, UANegativeNegative - 50 Cedric/mcLNOMS HealthcareClarity, UAClearNOMS HealthcareColor, UAYellowNOMS HealthcareGlucose, UAPositiveNegative - 1999(110) ++++ mg/dLNOPA HealthcareInterpretation and review of laboratory resultsAbnormalNOMS HealthcareKetones, UANegativeNegative - 160(16) ++++ mg/dLNOPA HealthcareLeukocytes, UANegativeNegative - 500+++ Ayana/mcL NOM HealthcareNitrite, UANegativeNegative - PositiveNOMS HealthcarepH, UA65 - 9 NOMS HealthcareProtein, UANegativeNegative - 1999(20) ++++ mg/dLNOPA Healthcare Spec Grav, UA1.0151 - 1.03NOPA HealthcareUrobilinogen, UA1.00.2 - 12 mg/dLNOPA HealthcareNOPA HealthcareALL THYROID STIM HORMONEon 65-52-1741MIE Qn2.68 m[IU]/L [facility]' HospitalCLINISYNCNOMS HealthcareAFP, SERUM, OPEN SPINA BIFIDAon 62-84-7214BPR MOM0.82.[facility]' HospitalAFP VALUE34.7 ng/mL.[facility] HealthcareCOMMENT: Comment.[facility]' HospitalComment on above:Alie Moon, Ph.D., [facility] Director References: Available Upon Request. Multiples Of Median Cutoffs For AFP Elevations Murphy 2.5 Black 2.8 IDD 2.0 Twins 4.5 Abbreviation Definitions IDD - Insulin Dep Diabetes OSBR - Open Spina Bifida Risk For further inquiries contact [employer] [facility] at [phone]. This test was developed and its performance characteristics determined by [facility]. It has not been cleared or approved by the Food and Drug Administration. Performed at: [facility] [address] [place], [place] [id number] Engine Watchman: Pily Meraz [facility], Phone: [phone] GEST. AGE ON COLLECTION DATE17.3. weeksNOPA HealthcareGESTAT. AGE BASED ONLMP. [facility] HealthcareComment on above:Recalculations are not recommended when gestational dating by LMP and ultrasound are within 10 days. INSULIN DEP DIABETESNo.[facility] HealthcareINTERPRETATIONComment.[facility] Comment on above:Interpretation: Screen Negative This [...] Customer Services to discuss available options. The [employer] recommends amniocentesis be offered to women age 35 and older. MATERNAL AGE AT EDD25.1. yrNOPA HealthcareMULTIPLE GESTATIONNo.[facility] Healthcare OSBR RISK 1 [id number].[facility] HealthcareRACECaucasian.[facility] HealthcareRESULTSReport. [facility] HealthcareTEST RESULTS:Negative.[facility]' HospitalGkfithfgcsLCVDGV253. lbsNOPA HealthcarePREGNANCY N N LMP [id number] 2 17 N 1 Y 134 N N N N N White/ CLINISYNCNOMadison Medical CenterUrinalysis macro (dipstick) panel (U)on 10-15-2024 Bilirubin, UANegativeNegative - 4(70) +++ mg/dLNOPA HealthcareBlood, UANegative Negative - 50 Cedric/mcLNOPA HealthcareClarity, UAClearNOPA HealthcareColor, UA YellowNOMS HealthcareGlucose, UANegativeNegative - 2000(110) ++++ mg/dLSALT [facility]KE [facility] HealthcareInterpretation and review of laboratory resultsNormalHarry S. [facility] Ketones, UANegativeNegative - 160(16) ++++ mg/dLSALT LAKE [facility] HealthcareLeukocytes, UA NegativeNegative - 500+++ Ayana/mcLNOPA HealthcareNitrite, UANegativeNegative - PositiveNOPA HealthcarepH, UA65 - 9NOPA HealthcareProtein, UANegativeNegative - 2000(20) ++++ mg/dLNOPA HealthcareSpec Grav, UA1.0151 - 1.03NOPA Healthcare Urobilinogen, UA0.20.2 - 12 mg/dLSaint Louis University Hospital HealthcareGLUCOSE 1 HOURon 41-92-1035Twypjni [Mass/Vol]108 mg/dLNINF - 130 mg/dLSALT [facility]KE [facility] HealthcareCLINISYNC [facility]' HospitalALL MISCELLANEOUS TESTon 45-88-5436ACHIUPSXIANZL TESTCOMMENT.[facility] HealthcareComment on above:Test Ordered: [id number] Parvovirus B19, Human, IgG/IgM Parvovirus B19, IgG 0.1 index BN Reference Range: 0.0-0.8 Negative <0.9 Equivocal 0.9 - 1.1 Positive >1.1 Parvovirus B19, IgM 0.1 index Reference Range: 0.0-0.8 Negative <0.9 Equivocal 0.9 - 1.1 Positive >1.1 Performed at: [address] [id number] Engine Watchman: Darion Moon MD, Phone: [phone] Performed at: [address] [id number] Engine Watchman: Madi Maloney PhD, Phone: [phone] Parvovirus B19 (Human), IgG, IgM CLINISYNCNOMS HealthcareALL MISCELLANEOUS TESTon 29-75-5554DUDDEYVGHWQVY TEST COMMENT.NOMS HealthcareComment on above:Test Ordered: [id number] Parvovirus B19, Human, IgG/IgM Parvovirus B19, IgG 0.1 index Reference Range: 0.0-0.8 Negative <0.9 Equivocal 0.9 - 1.1 Positive >1.1 Parvovirus B19, IgM 0.1 index Reference Range: 0.0-0.8 Negative <0.9 Equivocal 0.9 - 1.1 Positive >1.1 Performed at: [address] [id number] Engine Watchman: Darion Moon MD, Phone: [phone] Performed at: [address] [id number] Engine Watchman: Madi Maloney PhD, Phone: [phone] Parvovirus B19 (Human), IgG, IgM CLINISYNCNOMS HealthcareALL CBC WITH AUTO DIFFon 89-88-3149DGHCIMDKD ABSOLUTE FFJN3JIWZ HealthcareBasophils/100 WBC (Bld)0.5 %0.2 - 2.0 %[facility] Eosinophils/100 WBC (Bld)0.5 %Low0.9 - 7.0 %NOMS HealthcareErythrocyte distribution width (RBC) [Ratio]12.3 %11.0 - 15.0 %NOMS HealthcareHematocrit (Bld) [Volume fraction]38.5 %36.0 - 48.0 %NOMS HealthcareIMMATURE GRANULOCYTES ABS AUTO0.02NOPA HealthcareImmature granulocytes/100 WBC (Bld)0.3 %0.0 - 0.5 % [facility]' HospitalInterpretation and review of laboratory resultsAbnormalNOPA HealthcareLYMPHOCYTES ABSOLUTE AUTO1.6NOMS HealthcareLymphocytes/100 WBC (Bld)21 %20.5 - 60.0 %[facility] for ChildrenH (RBC) [Entitic mass]33.5 pg26.7 - 34.0 pgShriners Hospitals for ChildrenHC (RBC) [Mass/Vol]35.6 g/yVIwaf28.9 - 35.2 g/dLShriners Hospitals for ChildrenV (RBC) [Entitic vol]94.1 fL81.0 - 99.0 fLHarry S. Truman Memorial Veterans' HospitalMONOCYTES ABSOLUTE AUTO 0.4NOMS HealthcareMonocytes/100 WBC (Bld)5.1 %1.7 - 12.0 %[facility] NEUTROPHILS ABSOLUTE AUTO5.6NOMadison Medical CenterNeutrophils/100 WBC (Bld)72.6 %43.0 - 75.0 %[facility] Veterans' HospitalPlatelet mean volume (Bld) [Entitic vol]11.1 fL9.5 - 13.5 fLHarry S. Truman Memorial Veterans' HospitalTBH EO #0NOMadison Medical CenterTBH KAV114DLZISt. Louis VA Medical Center RBC4.09Low [facility] WBC7.8[facility]' HospitalCLINISYNCCBC and differentialon 16-88-1300Royxweccrg (Bld) [Volume fraction]39 %36 - 46 %[facility] Platelets (Bld) [#/Vol]211 10*3/uL150 - 399 10*3/uLProMedica Health SystemWBC (Bld) [#/Vol]7.8 10*3/mL3.3 - 10.0 10*3/mLSt. Albans HospitalMedica Glenbeigh Hospital SystemDrug Screen, Urineon 31-78-2558Sfcksramtvn/MethamphetamineNegativeProMedica Health System BarbituratesNegativeProMedica Health SystemBenzodiazepinesNegativeProMedica Health SystemCocaine MetaboliteNegativeSt. Albans HospitalMedica Health SystemMethadoneNegative ProMedica Health SystemOpiatesNegativeSt. Albans HospitalMedica Health SystemOxycodoneNegative ProMedica Health SystemPhencyclidineNegativeProMedica Health SystemThc Marijuana, UrineNegativeThe Christ HospitalHBV surface Ag IA Qlon 08-21-2024 Hepatitis B Surface AntigenNegativeThe Christ HospitalHCV Ab IA Qlon 36-58-7657AWF Ab Ql (S)Non-ReactiveThe Christ HospitalHIV 1+2 Ab+HIV1 p24 Ag IA Qlon 89-25-0091ATF 1&2 AB/AGNon-ReactiveThe Christ HospitalHemoglobin A1con 81-24-9863KoZ5p (Bld) [Mass fraction]5.6 %4.0 - 6.0 %The [facility] HospitalLaboratory - Hematology and Cell countson 24-85-9603Vaqmijwirj (Bld) [Mass/Vol]13.7 g/dL12.0 - 16.0 g/dLHarry S. Truman Memorial Veterans' HospitalNo Panel Informationon 92-56-7342ZUER HealthcareRubella IGG immune statuson 09-83-4299Fygkasv immune IgGimmuneThe Christ HospitalT. pallidum IgG+IgM IA Ql (S)Ordered By: Nadira Salazar on 72-15-2087XayblvgmOli-ReactiveThe Christ HospitalTSHon 49-70-5012Cszmaqc Stimulating (3Rd Generation) Hormone/ Tsh7.721PProMedica Defiance Regional HospitalType and screenon 16-10-1528Mfm/Rh(D)PositiveThe Christ HospitalHCG ( test) Ql (U)on 93-13-6225Gmoznbjbiehkzk and review of laboratory resultsAbnormalHarry S. Truman Memorial Veterans' HospitalPreg Test, UrPositiveNegativeSaint Louis University Hospital HealthcareUS OB TRANSVAGINALon 92-55-6459FQ OB TRANSVAGINALEXAM: US OB TRANSVAGINAL HISTORY: Dating. [...] II, MD, PHD at 20-Aug-2024 10:22:40 AM [facility] TeleradiologyNormalNot AvailableComment on above:Order Comment: US OB TRANSVAGINAL No LMP recorded.Urinalysis macro (dipstick) panel (U)on 14-34-4424Ivsuxtwcn, UA NegativeNegative - 4(70) +++ mg/dLNOMS HealthcareBlood, [...] - 12 mg/dLNOMS HealthcareNOMS HealthcareAmbulatory Visit Summaryon 59-54-8498Dzymfdiwyz Visit SummaryAmbulatory Visit Summary YANA CHURCH :2000 [...] 8:40 AM EDT With: Marta Rivas Where: [facility] [address] [place] [address], [address] [place] [id number] Medications What How Much When Why Instructions [...] you for choosing us for your care. [facility] Medicine Office/Clinic Noteon 88-46-1668Qnioxp Medicine Office/Clinic NoteFabridgewater state hospital Medicine Office/Clinic Note Chief Complaint Establish [...] anymore, managed with tylenol Social History: Occupation: [employer] Family life: home with and daughter Diet: no restrictions Caffeine: 1 cup coffee/day Exercise: active lifestyle Alcohol use: denies Drug use: denies Smoking status: denies Health Maintenance: Routine labs: thyroid labs 06/2024, declines further labs Pap (21-64yo): 04/2023 Specialists: [employer] Machine Operator: krysta Dentist: krysta OBGYN: Joanna Review of [...] other medications. Recheck TSH/T (more content not included)...[facility] Comment on above:Result Comment: Electronically Signed By: Marta Rivas\.br\Date and Time Signed: 07/09/24 08:35 EDTAmbulatory Visit Summaryon 69-37-4839Jjwxkofllg Visit SummaryAmbulatory Visit Summary YANA CHURCH :2000 [...] 8:00 AM EDT With: Marta Rivas Where: [facility] [address] [facility], [facility] [place] [address]- Medications What How Much When Why Instructions New amoxicillin-clavulanate (Augmentin 875 mg-125 mg Tab) 1 Tablets By Mouth Every 12 hours Acute sinusitis Duration: 10 Days Pickup at [facility] Unchanged levothyroxine (Synthroid 100 mcg Tab) 1 Tablets By Mouth Every day Pharmacy Information [facility]: [address] [place], [place] [id number] [phone] Allergies No Known Allergies Problems Ongoing - [...] you for choosing us for your care. [facility] Medicine Office/Clinic Noteon 59-27-4700Aspxwu Medicine Office/Clinic NoteFabridgewater state hospital Medicine Office/Clinic Note Chief Complaint possible [...] for 10 day(s), 20 tab(s), Refill(s) 0, [facility], 166, cm, 07/05/24 15:34:00 EDT, Height/Length [...] When Contact Information Julienne BARTLETT, Ham Montano, [facility], [address], [address] [phone] Additional Instructions: as scheduled with Marta Patient Education Sinus Infection, Adult, Tfwq-fz-Qvgp How to Perform a Sinus Rinse, Nwqf-hl-Lwzr Problem List/Past Medical History Ongoing Acute sinusitis [...] poliovirus vaccine, inactivated (more content not included)...Normal [facility] CenterComment on above:Result Comment: Electronically Signed By: Julienne BARTLETT, Ham Montano\.br\Date and Time Signed: 07/05/24 16:06 EDT CHEMISTRYOrdered By: SYSTEM SYSTEM on 35-72-7477Jwwa T4 [Mass/Vol]0.82 ng/dL Normal0.58 - 1.64 ng/dLRemisol ChemTSH Qn3.09 m[IU]/LNormal0.34 - 5.60 mcIU/mL Remisol ChemFree T4on 52-69-4943Lihe T4 [Mass/Vol]0.82 ng/dLNormal0.58-1.64 [facility] Medical CenterComment on above:Performed By: #### [id number] #### [facility] Laboratory [address] [place], [place] [address]XTNlf 88-22-3373QIF Qn3.09 m[IU]/LNormal0.34-5.60[facility] Medical CenterComment on above:Performed By: #### [id number] #### [facility] Laboratory [address] [place], [place] [address]LJS EXTRACTION AND HOLDon 67-25-9875HdfoxvAnduzh Puregene Reagents from QiagenInvalid Interpretation [facility] on above:Order Comment: Release to patient->AutomaticNucleic Acid Concentration 273.2 ng/uLInvalid Interpretation [facility] on above: Order Comment: Release to patient->AutomaticNucleic Acid Purity1.90Invalid Interpretation Code1.70-2.10[facility] on above:Order Comment: Release to patient->AutomaticSignature .Invalid [...] sample, please contact the Cytogenetics Laboratory at [phone].Total DNA Yield82.0 ugInvalid Interpretation [facility] on above:Order Comment: Release to patient->AutomaticTotal Volume FMP900 ulInvalid Interpretation Code [facility] on above:Order Comment: Release to patient->AutomaticIGP,APTIMA HPV,AGE GDLNon 14-74-1184KIE GDLN ACOG TESTINGNote. NOMS HealthcareComment on above:TESTS RESULT FLAG UNITS REF RANGE LAB Clinician Provided Cytology Information Source.............Cervix;Endocervix No. of containers..01 ThinPrep Vial Age Maicolo ACOG Francheska... FLAG LEGEND: L-Low Normal,H-High Normal,LL-Alert Low,HH-Alert High <-Panic Low,>-Panic High,A-Abnormal,AA-Critical Abnormal Performed at: 01 = Lab[address] [place] [address] Sugey Torres MD, IGP, RFX APTIMA HPV ASCUNote.[facility] HealthcareComment on above:TESTS RESULT FLAG UNITS REF RANGE LAB DIAGNOSIS: 02 NEGATIVE FOR INTRAEPITHELIAL LESION OR MALIGNANCY. Specimen adequacy: 02 Satisfactory for evaluation. Endocervical and/or squamous metaplastic cells (endocervical component) are present. Performed by: 02 Yudy Rhoades, Wool Mixer ([facility]) . 02 Note: Note 02 The [...] <-Panic Low,>-Panic High,A-Abnormal,AA-Critical Abnormal Performed at: [address] [address] Sugey Torres MD, Performed at: = - [facility] [address] [id number] Engine Watchman: Sugey Torres MD, Phone: [phone] Performed at: - [facility] [id number] Engine Watchman: Sugey Torres MD, Phone: [phone] BRUSH-SPATULA CERVIX ENDOCERVIX CLINISYNCNOMS HealthcareCoding Summary.on 67-71-0372Iuqgiw Summary. GGXPOife22KBt4dVq+PGhlYWQ+ZK0SGBPgT80hlMFjlX1lM7HFFWkJIyycMLRXEWdLVqBwdzQmYR4stB NjZXJu [file] [id number] (more content not included)...NormalUniversity [facility] CHEMISTRYOrdered By: SYSTEM SYSTEM on 34-47-7519Yuyx T4 [Mass/Vol]0.92 ng/dL Normal0.58 - 1.64 ng/dLRemisol [facility] Qn3.37 m[IU]/LNormal0.34 - 5.60 mcIU/mL Remisol ChemConsent for Treatmenton 18-32-8137Qturdqm for Treatment [id number]#1.00TIFFNormalUniversity Hospitals Geneva Medical CenterFree T4on 24-91-2333Qtko T4 [Mass/Vol]0.92 ng/dLNormal0.58-1.64[facility] Medical CenterComment on above:Performed By: #### [id number] #### Barry [facility] Laboratory [address] [place] [address]PBPmj 81-52-6013HWO Qn3.37 m[IU]/LNormal0.34-5.60[facility] Medical CenterComment on above:Performed By: #### [id number] #### Jhonny [facility] Laboratory [address] [place], [place] [address]Gamebkxufy Visit Summaryon 96-77-9444Kjlxbxqduk Visit Summary YANA CHURCH :2000 Visit Date:08/08/2023 [...] you for choosing us for your care. [facility] Medicine Office/Clinic Noteon 87-13-2373Hsntrd Medicine Office/Clinic NoteChief Complaint f/u for hypothyroid [...] hemorrhoids) Resolved, no additional complaints. saw [facility] for screening colonoscopy/diagnostic colonoscopy due to constipation [...] with voice recognition artificial intelligence software, specifically [employer], [employer] and or [employer]. Substitutions may have occurred due to the [...] Social History Alcohol Curren (more content not included)...[facility] HospitalComment on above:Result Comment: Electronically Signed By: [...] Follow these instructions at home: ? Take wdlg-img-vfudrmr and prescription medicines only as told by [...] provider. Document Revised: 03/09/2022 Document Reviewed: 03/09/2022 [employer] Patient Education ? 2022 Livevol. Gastroenterology Hemorrhoids Hemorrhoids are swollen veins in and around the rectum or anus. There are two types of hemorrhoids: ? Internal hemorrhoids. These occur in the veins that are just inside the rectum. They may poke through to the outside and become irritated and painful. ? External hemorrhoids. These occur in the veins that are (more content not included)...NormalUniversity Hospitals Geneva Medical CenterPAP [id number] 05-20-2023. trachomatis rRNA FRANSISCO+probe Ql (Cvx)NegativeInvalid Interpretation CodeNegative [facility] CenterComment on above:Performed By: #### [id number] ####[facility] Oqmjrwctvw585 [facility] Centerradhaedgewood state hospitalamerico [id number] Cytology report Cyto stain Doc (Cvx/Vag)NoteInvalid Interpretation [facility] HospitalComment on above:Result Comment: TESTS RESULT FLAG UNITS REF RANGE LAB Clinician Provided Cytology Information Source.............Cervix No. of containers..01 ThinPrep Vial DIAGNOSIS: 01 NEGATIVE FOR INTRAEPITHELIAL LESION OR MALIGNANCY. Specimen adequacy: 01 Satisfactory for evaluation. Endocervical and/or squamous metaplastic cells (endocervical component) are present. Performed by: 01 Erum Mckenzie, Wool Mixer ([facility]) . 01 Note: Note 01 The [...] <-Panic Low,>-Panic High,A-Abnormal,AA-Critical Abnormal Performed at: [address] [address] Sugey Torres MD, Lhuagglkg By: #### [id number] ###Tunde [facility] Jrzzvslqta[address] [place], [id number] 16+18+31+33+35+39+45+51+52+56+58+59+66+68 DNA Probe+sig amp Ql (Cvx)Negative Invalid Interpretation CodeNegativeFisher [facility] CenterComment on above: Result Comment: This nucleic acid amplification test detects fourteen high-risk HPV types (16,18,31,33,35,39,45,51,52,56,58,59,66,68) without differentiation.Performed By: #### [id number] ####Barry [facility] Bqbaptbzui[address] [facility], [place]K. gonorrhoeae rRNA FRANSISCO+probe Ql (Cvx) NegativeInvalid Interpretation CodeNegMount St. Mary HospitalComment on above:Performed By: #### [id number] ####Barry [facility] Zztjtpurix[address] [facility] [id number]. vaginalis rRNA FRANSISCO+probe Ql (Unsp spec)NegativeInvalid Interpretation CodeNegativeUniversity Hospitals [facility] Comment on above:Result Comment: Performed at: [facility] [address] [place], [place] [id number] MD Brian Mayes Performed at: =G [facility] [place] [address] [place], [place] [id number] MD Brian MayesPerformed By: #### [id number] ####[facility] [address] [place] [address] [id number] Medicine Office/Clinic Noteon 97-88-4975Rzcvik Medicine Office/Clinic NoteChief Complaint Pap, f/u UTI [...] performed without the assistance of medical records secretary as witness Pelvic Exam: Vulva: normal appearance, [...] up every 3-5 years based on results HALL COORDINATOR referral if needed for further testing or [...] placed F/u 6 months (more content not included)...NormalUniversity [facility]als [facility] Comment on above:Result Comment: Electronically Signed By: Ya Wang\.irvin\Date and Time Signed: 05/16/23 15:38 ESTPAP [id number] 05-16-2023 Gynecological Body SiteCERVIXNormalUniversity Hospitals Geneva Medical CenterComment on above: Performed By: #### [id number] ####Jhonny [facility] Iaganstxby[address] [id number] Educationon 21-76-9714Kjuctht Education Obstetrics and Gynecology Pap Test Why [...] including vitamins, herbs, eye drops, creams, and zebw-wuq-gfbiyuo medicines. ? Any bleeding problems you have. [...] provider. Document Revised: 06/05/2021 Document Reviewed: 06/05/2021 [employer] Patient Education ? 2022 Livevol. Oncology Cancer Screening for Women A cancer [...] to asbestos. How i (more content not included)...NormalUniversity Hospitals Geneva Medical CenterConsent for Treatmenton 48-35-4110Majfqpv for Treatment [id number]#1.00TIFFNormalUniversity Hospitals Geneva Medical CenterUA With Cult Reflexon 94-49-3942Cksmmctag Ql (U)NegativeNormalNegative [facility] CenterComment on above:Performed By: #### [id number] ####[facility] [address] [place] [address] Clarity (U)CLEARNormalClearUniversity Hospitals Geneva Medical CenterComment on above:Performed By: #### [id number] ####[place] [address] [place], [place] [address]Ibmol (U)YELLOWNormalYellowUniversity Hospitals Geneva Medical Center Comment on above:Performed By: #### [id number] ####[facility] [address] [place], [place] [address]Dsxntwiwop cells.squamous LM.HPF (Urine sed) [#/Area]9-8Qrrfxu3-0Ytpgho [facility] CenterComment on above: Performed By: #### [id number] ####[facility] Inyxnyhror[address] [place], [place] [address]Nzeosur Test strip (U) [Mass/Vol]NegativeNormal NegativeUniversity Hospitals Geneva Medical CenterComment on above:Performed By: #### [id number] ####[facility] [address]xbukpf[address] [place] [address] Hemoglobin Ql (U)NegativeNormalNegativeUniversity Hospitals Geneva Medical CenterComment on above:Performed By: #### [id number] ####[facility] [address] [place], [place] [address]Zyjoagc (U) [Mass/Vol]NegativeNormalNegMount St. Mary HospitalComment on above:Performed By: #### [id number] ####[address] [address] Beckett.plasma/Beckett.RBC (Bld) [Mass ratio]1-8Zzfzuj6-3Sgxuhg [facility] CenterComment on above:Performed By: #### [id number] ####[address] [address]Myebcpy Ql (U)NegativeNormal NegativeUniversity Hospitals Geneva Medical CenterComment on above:Performed By: #### [id number] ####[address] [address]bO (U)6.0 [pH]Invalid Interpretation Code5.0-9.0[facility] Medical CenterComment on above:Performed By: #### [id number] ####[address] [address]Eqayjqf (U) [Mass/Vol]NegativeNormal NegativeUniversity Hospitals Geneva Medical CenterComment on above:Performed By: #### [id number] ####[address] [address] Specific gravity (U) [Rel density]>=1.030Invalid Interpretation Code1.005-1.030 [facility] Medical CenterComment on above:Performed By: #### [id number] ####[address] [address]Cknk of Urine collection methodClean CatchNormalUniversity Hospitals Geneva Medical CenterComment on above:Performed By: #### [id number] ####[address] [address]Wbqdnufukvye Qn (U)0.2 {Mehdi'U}/dLNormal0.0-1.0 [facility] Medical CenterComment on above:Performed By: #### [id number] ####[address] [address]QLB Auto Ql (U)NegativeNormalNegativeUniversity Hospitals Geneva Medical CenterComment on above: Performed By: #### [id number] ####[address] [place], [place] [address]KIZ LM.HPF (Urine sed) [#/Area]4-3Byacxr1-8Ghoetj [facility] CenterComment on above:Performed By: #### [id number] ####Jhonny [facility] [address]oirapwfl[address] [place], [place] [address]XKKHMDYXIO Ordered By: Alphonso Wang on 67-22-0804Nfhghzcxr Ql (U)Negative (03/24/23 11:15 AM)NormalNegativeOKLAHOMA HOSPITAL ASSOCIATION UA Auto SSClarity (U)Clear (03/24/23 11:15 AM)NormalClearFMARY HURLEY [facility] UA Auto SSColor (U)Yellow (03/24/23 11:15 AM)NormalYellowOKLAHOMA HOSPITAL ASSOCIATION UA Auto SSEpithelial cells.squamous LM.HPF (Urine sed) [#/Area]0-2 /HPFNormal0-2/HPFOKLAHOMA HOSPITAL ASSOCIATION UA Auto SSGlucose Test strip (U) [Mass/Vol]Negative (03/24/23 11:15 AM)NormalNegativeOKLAHOMA HOSPITAL ASSOCIATION UA Auto SSHemoglobin Ql (U)Negative (03/24/23 11:15 AM)NormalNegativeOKLAHOMA HOSPITAL ASSOCIATION UA Auto SSKetones (U) [Mass/Vol]Negative (03/24/23 11:15 AM)NormalNegativeOKLAHOMA HOSPITAL ASSOCIATION UA Auto SSLithium.plasma/Beckett.RBC (Bld) [Mass ratio]0-3 /HPFNormal0-3/HPFOKLAHOMA HOSPITAL ASSOCIATION UA Auto SSNitrite Ql (U)Negative (03/24/23 11:15 AM)NormalNegativeOKLAHOMA HOSPITAL ASSOCIATION UA Auto SSpH (U)6.0 *NA* (03/24/23 11:15 AM)Invalid Interpretation Code5.0 - 9.0OK[facility] UA Auto SSProtein (U) [Mass/Vol]Negative (03/24/23 11:15 AM)NormalNegativeOKLAHOMA HOSPITAL ASSOCIATION UA Auto SSSpecific gravity (U) [Rel density] >=1.030 *NA* (03/24/23 11:15 AM)Invalid Interpretation Code1.005 - 1.030OK[facility] UA Auto SSUA Spec DescClean Catch (03/24/23 11:15 AM)NormalOKLAHOMA HOSPITAL ASSOCIATION UA Auto SSUrobilinogen Qn (U)0.6125346 {Mehdi'U}/dLNormal0.0 - 1.0 EU/dLOKLAHOMA HOSPITAL ASSOCIATION UA Auto SSWBC Auto Ql (U)Negative (03/24/23 11:15 AM)NormalNegativeOKLAHOMA HOSPITAL ASSOCIATION UA Auto SSWBC LM.HPF (Urine sed) [#/Area]0-5 /HPFNormal0-5/HPFOKLAHOMA HOSPITAL ASSOCIATION UA Auto SST3 Freeon 75-76-3178Twft T3 [Mass/Vol]2.9 pg/mL Invalid Interpretation Code2.0-4.4Fisher [facility] CenterComment on above: Result Comment: Performed at: [facility] [address] [id number] PhD Haider BarrazaPerformed By: #### [id number], [id number], [id number] ####Barry [facility] [address] [place], [place] [address]XV Retroperitoneal Completeon 32-44-0661KJ Retroperitoneal CompleteExam Date/Time: 03/22/2023 09:49 EST Reason [...] Taylor MD Transcribed by: RAZIA Technologist: Hussain [facility] CenterCHEMISTRY Ordered By: SYSTEM SYSTEM on 51-22-4998Lobn T4 [Mass/Vol]1.10 ng/dLNormal0.58 - 1.64 ng/dLRemisol ChemTSH Qn0.90 m[IU]/LNormal0.34 - 5.60 mcIU/mLRemisol Chem Consent for Treatmenton 04-06-7520Pmdentp for Treatment [id number]#1.00TIFFSelect Medical OhioHealth Rehabilitation HospitalFree T4on 14-40-3457Ansi T4 [Mass/Vol]1.10 ng/dLNormal0.58-1.64[facility] CenterComment on above:Performed By: #### [id number], [id number], [id number] ####[facility] [address] [place], [place] [address]ZOVmq 89-59-0218RXI Qn0.90 m[IU]/LNormal0.34-5.60[facility] Medical CenterComment on above:Performed By: #### [id number], [id number], [id number] ####[facility] [address] [place] [address] 60581R Urineon 52-07-5250Fwwlisdo identified Cx Nom (U)Microbiology PROCEDURE: Urine Culture [...] Locations R1: This test was performed at: [facility], [address] [place] [address], [id number] [place] [address], OckosaNdknhaSelect Medical OhioHealth Rehabilitation HospitalComment on above:Performed By: #### [id number] ####[facility] [address] As[facility]onedge[facility] state hospitalamericoB[place]LE [place], [place] [address]Trztfa Medicine Office/Clinic Noteon 34-49-1797Zxgcoc Medicine Office/Clinic NoteChief Complaint 2 wk f/u [...] due to her gallbladder. She saw a linotype machinist in 11/2022. She is able to schedule [...] office today shows: Negat (more content not included)...[facility] HospitalComment on above:Result Comment: Electronically Signed By: Ya Wang\.br\Date and Time Signed: 03/11/23 06:06 EST\.br\Electronically Co-Signed By: Annetta Blackburn\.br\Date and Time Co-Signed: 03/09/23 12:22 ESTAmbulatory Visit Summaryon 77-90-7539Zchxrdxlre Visit Summary YANA CHURCH :2000 Visit Date:03/09/2023 Ambulatory Visit Instructions Your Diagnosis BMI 21.0-21.9, adult Feeling of incomplete bladder emptying Other cystitis with hematuria Hypothyroidism Tests Performed Urnls Dip Stick Auto w/o Microscopy POC 95515 Your Care Team Attending Physician - Ya [...] 10:00 AM EDT With: Ya Wang [facility] ([facility]), pp_set_radiology_subspecialty, [facility]\.br\ Medicati ons\.br\ What How Much When Why Instructions\.br\ New cephalexin (Keflex 500 mg Cap) 1 Capsules By Mouth 4 times a day Feeling of incomplete bladder emptying Recurrent UTI (urinary tract infection) Duration: 7 Days Pickup at [facility]\.br\ New phenazopyridine (Pyridium 200 mg Tab) 1 Tablets By Mouth 3 times a day Feeling of incomplete bladder emptying Recurrent UTI (urinary tract infection) Duration: 3 Days Pickup at [facility]\.br\ Unchanged levothyroxine (Synthroid 112 mcg Tab) [...] instructions Prior to colonoscopy. \.br\ Pharmacy Information\.br\ [facility]: [address] [place], [place] [id number] [phone]\.br\ Test Results\.br\ Urnls Dip Stick Auto w/o Microscopy POC 24460 (03/09/2023)\.br\ Bilirubin Urine Dipstick - Negative\.br\ Blood Urine Dipstick - Trace-intact\.br\ Glucose Urine Dipstick - Negative\.br\ Ketones UrineDipstick - Negative\.br\ Leukocytes Urine Dipstick - Trace\.br\ Nitrite Urine Dipstick - Negative\.br\ Protein Urine Dipstick - Negative\.br\ Specific [place] Urine Dipstick - 1.020\.br\ Urine Appearance Urine [...] including vitamins, herbs, eye drops, creams, and xapv-gbz-ztswnuu medicines.\.br\ ? \.br\ Whether you are or [...] nerves are communicating with your muscles.\.br\ What [facility] CenterPatient Educationon 05-28-9698Qfcgeau Education Endocrinology Hypothyroidism Hypothyroidism is when the [...] Follow these instructions at home: ? Take bcbm-qwr-dvfopqi and prescription medicines only as told by [...] provider. Document Revised: 03/09/2022 Document Reviewed: 03/09/2022 [employer] Patient Education ? 2022 Livevol. Obstetrics and Gynecology Urinary Tract Infection, Adult A urinary tract infection (UTI) is an infection of any part of the urinary tract. The urinary tractincludes the kidneys, ureters, bladder, and urethra. These organs make, store, and get rid of urinein the body. An upper UTI affects the ureters and kidneys. A lower UTI affects the bl (more content not included)...[facility] HospitalPhysician Referralon 51-98-7949Kokcjectj [id number]#1.00TIFF [facility] HospitalProvider Letteron 02-99-2855Uzvfyzdx Letter March 02, 2023 YANA CHURCH [address] [place] [id number] : [address] Clay Waters is know on your insurance & we are able to schedule your EGD & Colonoscopy. Please call us at [phone] at your [facility] convenience to schedule your procedure. Thank you for your prompt attention to this matter. Sincerely, [facility]23 Reminders From: Erum Gold To: [facility] - Reminders/Recalls; Sent: 11/30/2022 12:34:03 EDT Show up: 11/30/2022 12:34:00 EDT Subject: Ambulatory Reminder [employer] Reminder/Recall Call pt and scheduled EGD and Colonoscopy with Dr. Williamson once [employer] is approved. From: Rusty Alfred ([facility] - Reminders/Recalls) To: Yue Perez; Sent: [...] letter to patient to call office to [facility] Urineon 76-61-2412Vtzshcjw identified Cx Nom (U)Microbiology PROCEDURE: Urine Culture [...] Locations R1: This test was performed at: [facility], [address] [place] [address], [facility] , , KnbkdzPraorzSelect Medical OhioHealth Rehabilitation HospitalComment on above:Performed By: #### [id number] ####[facility] [address] [place] [address] Medicine Office/Clinic Noteon 87-10-2496Aswjkc Medicine Office/Clinic NoteChief Complaint UTI symptoms HPI [...] color was orange in appearance due to iuzs-gew-khsbdyf meds she was taking, normal urobilinogenpH 5.5 [...] day(s), # 10 cap(s), Refills(s) 0, Pharmacy: [facility], 166, cm, 02/21/23 13:06:00 EST, Height/Length Dosing, 58.6, kg, 02/21/23 13:06:00 EST, Weight Dosing phenazopyridine, 200 mg = 1 tab(s), Oral, TID, X 3 day(s), # 9 tab(s), Refills(s) 0, Pharmacy: [facility], 166, cm, 02/21/23 13:06:00 EST, Height/Length Dosing, 58.6, kg, 02/21/23 13:06:00 EST, Weight Dosing Urine Culture Urnls Dip Stick Auto w/o Microscopy POC 73464 2. Acute cystitis (N30.00: Acute cystitis without hematuria) #1 3. Constipation in female (K59.00: Constipation, unspecified) improving. occasional Colace OTC and Miralax 4. Hemorrhoids (K64.9: Unspecified hemorrhoids) improving, stable 5. Hypothyroidism (E03.9: Hypothyroidism, unspecified) Chronic Stable with 112 mcg daily of Synthroid _ control Weight is stable Asymptomatic- noteable tachycardia today Du (more content not included)...[facility] HospitalComment on above:Result Comment: Electronically Signed By: [...] these instructions at home: Medicines ? Take tbdo-ihv-mmruvsl and prescription medicines only as told by [...] provider. Document Revised: 10/17/2020 Document Reviewed: 10/17/2020 [employer] Patient Education ? 2022 Livevol.[facility] Ambulatory Visit Summaryon 34-37-2244Tzsfyivomg Visit Summary LILIANAYANA MONTENEGRO :2000 Visit Date:11/30/2022 [...] 1:00 PM EST With: Ya Wang [facility] Gastroenterology Office/Clinic Noteon 56-23-9214Oiokyxoenkecxswi Office/Clinic NoteChief Complaint constipation HPI Staff Patient [...] Refill(s) 0, Prior to colonoscopy., [facility][id number], 166, cm, 11/30/22 12:12:00 EDT, Height/Length Dosing, [...] rhinitis Hypoglycemia Hypothyroidism Left (more content not included)...[facility] HospitalComment on above:Result Comment: Electronically Signed By: Daniel Gray CNP\.br\Date and Time Signed: 11/30/22 12:32 EDTPatient Educationon 5347Ppnsyvf EducationGastroenterology High-Fiber Eating Plan Fiber, also called [...] Bulgur wheat. Millet. Quinoa. Bran muffins. Popcorn. [place] wafer crackers. Meats and other proteins Jasper beans, kidney beans, and díaz beans. Soybeans. [...] Cream cheese. Sour cream. Fats and oils [place]. Beverages Soft drinks. Other foods Cakes and [...] care provider. 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 Hypothyroidism (E03.9: Hypothyroidism, [...] exercise. Orders: azelastine ophthalmic, (more content not included)...[facility] HospitalComment on above:Result Comment: Electronically Signed By: Ya Wang\.br\Date and Time Signed: 11/11/22 09:53 EDTPatient Educationon 07-72-2242Yfpbglv EducationHigh-Fiber Diet Fiber, also called dietary fiber, [...] serving. ? Talk with a diet and forestry extension specialist (dietitian) if you have questions about [...] Bulgur wheat. Millet. Quinoa. Bran muffins. Popcorn. [place] wafer crackers. Meats and other proteins Jasper, kidney, and díaz beans. Soybeans. Split peas. [...] Cream cheese. Sour cream. Fats and oils [place]. Beverages Soft drinks. Other foods Cakes and [...] 03/07/2006 Document Revised: 01/09/2018 Document Reviewed: 01/09/2018 [employer] Patient Education ? 2019 Livevol. Gastroenterology H (more content not included)...[facility] HospitalAmbulatory Visit Summaryon 12-47-4562Lummnvnpgg Visit Summary YANA CHURCH :2000 Visit Date:10/08/2022 [...] f/u for hypothyroid, weight loss Where: [address] [facility], [facility] A [address] [address]- Business (1) You Need to Complete the Following Anti-thyroid Abys, Blood, Routine collect, 10/08/22, Order for future visit, Lab Collect, Weight lossInvalid Interpretation CodeHypothyroidismUniversity Hospitals Geneva Medical CenterAuto Diffon 12-97-6805Vfddfifrq/100 WBC (Bld)1.1 %Normal0.0-2.0 [facility] CenterComment on above:Order Comment: Order Added by Discern Expert.Performed By: #### [id number], 01424994, 49292718, 7343557, 4370908 ####[facility] [address] [place] [address] Basophils/Leukocytes Auto (Bld) [Pure # fraction]0.1 E9/LNormal0.0-0.2FSCCI Hospital LimaComment on above:Order Comment: Order Added by Discern Expert.Performed By: #### [id number], 98936976, 59933520, 9167676, 4920850 ####[facility] [address] [place] [address] Eosinophils/100 WBC (Bld)1.2 %Normal0.0-8.0[facility] Medical CenterComment on above:Order Comment: Order Added by Discern Expert.Performed By: #### 9683521, 69363180, 65457652, 9101566, 9432446 ####[facility] Lab [address] [place] [address]Obiibjlxtuv/Leukocytes Auto (Bld) [Pure # fraction]0.1 E9/LNormal0.0-0.5FSCCI Hospital LimaComment on above: Order Comment: Order Added by Discern Expert.Performed By: #### 0664782, 39183671, 54617002, 8378224, 5616778 ####[facility] Lab [address] [place] [address]Xyoiwndttkc/100 WBC (Bld)41.0 %Normal 14.0-50.0[facility] CenterComment on above:Order Comment: Order Added by Discern Expert.Performed By: #### 0899376, 33896852, 95597585, 0573900, 0842520 ####[address] [address]Vxgcnxvuzpe/Leukocytes Auto (Bld) [Pure # fraction]2.3 E9/LNormal1.0-4.0 [facility] CenterComment on above:Order Comment: Order Added by Discern Expert.Performed By: #### 0098489, 78982189, 09100561, 4089222, 7087262 ####[address] [address] Monocytes/100 WBC (Bld)5.8 %Normal4.0-14.0[facility] Medical CenterComment on above:Order Comment: Order Added by Discern Expert.Performed By: #### 4839723, 48246001, 87380321, 1759981, 1589639 ####[facility] Lab [address] [place] [address]Xggslunxj/Leukocytes Auto (Bld) [Pure # fraction]0.3 E9/LNormal0.2-1.0[facility] CenterComment on above:Order Comment: Order Added by Discern Expert.Performed By: #### 5987425, 31467336, 52828363, 5379689, 3123048 ####[address] [address]Tzrksqgvloj/100 WBC (Bld)50.9 %Kqftpb86.0-75.0 [facility] CenterComment on above:Order Comment: Order Added by Discern Expert.Performed By: #### 5927120, 95646150, 81941197, 9009264, 2786783 ####[address] [address] Neutrophils/Leukocytes Auto (Bld) [Pure # fraction]2.8 E9/LNormal2.0-7.5FSCCI Hospital LimaComment on above:Order Comment: Order Added by Discern Expert.Performed By: #### 7716770, 28225911, 97509275, 2755618, 8751922 ####[address] [address]RNL w/ Auto Diffon 72-65-7850Guvzpqzpxpy distribution width (RBC) [Ratio]12.6 % Xkbulg47.9-14.2FSCCI Hospital LimaComment on above:Performed By: #### 3438511, 88243656, 73754836, 1191371, 6299904 ####[address] [address]Pfgxlciupx (Bld) [Volume fraction] 40.4 %Lmires12.0-46.0[facility] CenterComment on above:Performed By: #### 8909260, 03704553, 68197359, 7337480, 4206623 ####[address] [address]Txraiktfey (Bld) [Mass/Vol] 14.1 g/pAUctvsp01.0-16.0[facility] CenterComment on above:Performed By: #### 1419187, 78791689, 42791019, 2261980, 7423867 ####[address] [address]RZT (RBC) [Entitic mass]32.1 xtWmwovb49.0-34.0[facility] CenterComment on above:Performed By: #### 7566597, 98408219, 22032191, 9741793, 1391938 ####[address] [address]DHBV (RBC) [Mass/Vol]34.8 g/dLNormal 31.4-36.0[facility] Medical CenterComment on above:Performed By: #### 5328346, 09612855, 79252212, 2373469, 8829713 ####[facility] Lab [address] [place] [address]OVX (RBC) [Entitic vol]92.1 fLNormal 80.0-100.0[facility] Medical CenterComment on above:Performed By: #### 4871547, 29867846, 70941533, 4481343, 8702061 ####[address] [address]Kqqjuxnp mean volume (Bld) [Entitic vol]9.1 fLNormal6.4-10.8[facility] Medical CenterComment on above:Performed By: #### 4209690, 91974143, 49798124, 4683910, 5506103 ####[address] [address]Xaqmfbedi (Bld) [#/Vol]238.0 E9/QYndrjh341.0-500.0[facility] CenterComment on above:Performed By: #### 5880624, 31613644, 29379755, 4970206, 6451049 ####[address] [address]POV (Bld) [#/Vol]4.4 E12/L Normal4.3-5.9[facility] CenterComment on above:Performed By: #### 9553279, 67044160, 22484897, 2859122, 4442838 ####[address] [address]GUT corrected for nucl RBC Auto (Bld) [#/Vol]5.6 E9/LNormal4.0-11.0[facility] CenterComment on above: Performed By: #### 3097948, 42261393, 68134855, 5141386, 7588505 ####[facility] [address] [place], [place] [address]YYIyb 10-08-2022 Albumin [Mass/Vol]4.7 g/dLNormal3.3-5.0[facility] CenterComment on above:Performed By: #### 4516023, 96516418, 51231178, 7662520, 0492997 ####[facility] [address] [place] [address] Albumin/Globulin (S) [Mass conc ratio]1.9Dhxape2.1-2.2FSCCI Hospital LimaComment on above:Performed By: #### 3151277, 51459978, 96906081, 7854406, 4650854 ####[facility] [address] [place] [address]PWT [Catalytic activity/Vol]42 Int._Unit/MMjginx26-63WtitbzUniversity Hospitals Geneva Medical CenterComment on above:Performed By: #### 8838785, 19466910, 39036563, 2481850, 2657355 ####[facility] [address] [place], [place] [address]BZU No additional P-5'-P [Catalytic activity/Vol]15 Int._Unit/LNormal6-46 [facility] CenterComment on above:Performed By: #### 4909460, 81591744, 56210954, 0411504, 7536527 ####[facility] Lab [address] [place], [place] [address]Cnikp gap [Moles/Vol]13 mmol/LNormal6-16 [facility] CenterComment on above:Performed By: #### 6148055, 17465489, 01937606, 8849481, 1109645 ####[facility] Lab [address] [place], [place] [address]RRC [Catalytic activity/Vol]22 Int._Unit/LNormal5-43[facility] Payne Medical CenterComment on above:Performed By: #### 5922709, 90596371, 54189983, 5219990, 6391185 ####[facility] [address] [place], [place] [address]Gmcwtrpbu [Mass/Vol]0.5 mg/dL Normal0.0-1.1FSCCI Hospital LimaComment on above:Performed By: #### 9176615, 18207958, 70309564, 5562247, 3668527 ####[facility] [address] [place], [place] [address]Xkkimmi [Mass/Vol]9.4 mg/dLNormal 8.9-11.1FSCCI Hospital LimaComment on above:Performed By: #### 3238705, 44532337, 96519937, 3040958, 8826587 ####[facility] Lab [address] [place], [place] [address]Lwssgoqb [Moles/Vol]107 mmol/LNormal 101-111[facility] Medical CenterComment on above:Performed By: #### 7741607, 15871618, 64575001, 1975857, 2512998 ####[facility] Lab [address] [place], [place] [address]KT8 [Moles/Vol]24 mmol/IUgthlb31-97 [facility] CenterComment on above:Performed By: #### 4079548, 89914381, 81921745, 4200742, 0297376 ####[facility] Lab [address] [place], [place] [address]Bjhbmkskgj [Mass/Vol]0.7 mg/dLNormal 0.5-1.3FSCCI Hospital LimaComment on above:Performed By: #### 3103231, 98598164, 40128745, 0279286, 6248599 ####[facility] Lab [address] [place], [place] [address]Savxydld (S) [Mass/Vol]3.2 g/dLNormal 1.4-4.0[facility] CenterComment on above:Performed By: #### 1620327, 45573753, 03513845, 6751111, 1885602 ####[facility] Lab [address] [place], [place] [address]Zwednnu [Mass/Vol]105 mg/lAJmkrxr31-085 [facility] CenterComment on above:Result Comment: If this glucose result represents a fasting glucose, interpretation should refer tothe following reference range: 55-99 mg/dLPerformed By: #### 8924822, 75364340, 78091350, 3537625, 9960375 ####[facility] [address] [place], [place] [address]Mwoakgddj [Moles/Vol]3.9 mmol/LNormal3.5-5.3FSCCI Hospital LimaComment on above:Performed By: #### 7125905, 03114594, 49320231, 4275026, 2876223 ####[facility] [address] [place], [place] [address]Qosewyr [Mass/Vol]7.9 g/dLHigh6.0-7.8[facility] CenterComment on above:Performed By: #### 7389482, 75856849, 85448558, 2971370, 2531278 ####[facility] [address] [place], [place] [address]Rqrnha [Moles/Vol]140 mmol/AZnqkne438-182EehccyUniversity Hospitals Geneva Medical CenterComment on above:Performed By: #### 4470478, 73946479, 60046716, 8896790, 5491549 ####[facility] [address] [place], [place] [address]Lddr nitrogen [Mass/Vol]17 mg/dLNormal5-21[facility] CenterComment on above:Performed By: #### 0393599, 02210271, 74432533, 4882255, 8155938 ####[facility] [address] [place], [place] [address]Krcd nitrogen/Creatinine [Mass ratio]24 No OxclhMbxi45-69LjsbapUniversity Hospitals Geneva Medical Center Comment on above:Performed By: #### 8665579, 56758801, 18748518, 2096374, 4811432 ####[facility] [address] [address]Lmlylwx for Treatmenton 64-37-0330Xlttojl for Treatment [id number]#1.00CD:127NormalSCCI Hospital Lima Medicine Office/Clinic Noteon 64-67-6950Ohdwwu Medicine Office/Clinic NoteChief Complaint Establish care --- [...] Dr Marshall scheduled for nov 2022 Specialists: Buffing And Sueding Machine Operator: Bird Álvarez in [place]- contacts most of the time, Dentist: UTD - no issues- Dr Nila MARSHALL- [facility] GINA KASPER Review of Systems PHQ Score [...] Pap testing and gynecologic screenings per her PET CARE ATTENDANT. Discussed self breast exams and other health [...] and exercise increasing. Patient encouraged to use dwau-thz-wkhwpne MiraLAX or Colace, encouraged Preparation H xvwk-cvn-zoacmuc topical treatments if needed. \ Follow-up only if needed. Patient only having minimal complaints 3. Constipation in female (K59.00: Constipation, unspecified) see #3 4. BMI 20.0-20.9, ad (more content not included)...[facility] HospitalComment on above:Result Comment: Electronically Signed By: Ya Wang\.br\Date and Time Signed: 10/08/22 16:30 EDTPatient Educationon 47-89-4134Lbhxpxn EducationEndocrinology Hypoglycemia Hypoglycemia occurs when the level [...] instructions at home: General instructions ? Take toer-rtt-arazcqy and prescription medicines only as told by your health care provider. ? Monitor your blood glucose as told by your health care provider. ? If you drink alcohol: ? Limit how much you have to: ? 0?1 (more content not included)...NormalLakeHealth [facility] With T4fr Reflexon 56-98-5580STU Qn0.58 m[IU]/LNormal0.34-5.60[facility] CenterComment on above:Performed By: #### 4196661, 45605872, 88417228, 0518879, 6064226 ####[facility]hon[facility] [address] [place], [place] [address]dFDQtg 93-61-2152MXQ/1.73 sq M.predicted among non-blacks MDRD (S/P/Bld) [Vol rate/Area]124 mL/min/1.73 a6Pwlpug>=59Fisher [facility] Medical CenterComment on above:Order Comment: Order added by Discern Expert.Result Comment: Chronic kidney disease could be indicated at eGFR's of less than 60 mL/min/1.73m2. K idney failure is indicated at less than 15 mL/min/1.73m2.Performed By: #### 9922868, 67828893, 54057940, 3641712, 1065418 ####[facility] [address] [place], [place] [address]WFR ACOG PANEL 2: 21 to 29on 10-23-2021..NormalPremier Health Miami Valley Hospital NorthComment on above:Performed By: #### CBC #### [facility] [address] [place] [address] Dr. Rima Dinh Gdln ACOG Jtfijhz50-98PbrcjlRgwMorrow County HospitalComascension macomb on above:Performed By: #### CBC #### [facility] [address] [place] [address] Dr. Rima CharlesDIAGNOSIS:CommentMercy Health Lorain Hospital on above: Result Comment: NEGATIVE FOR INTRAEPITHELIAL LESION OR MALIGNANCY. THIS SPECIMEN WAS RESCREENED PART OF OUR INSPECTOR BULLET SLUGS PROGRAM.Performed By: #### CBC #### [facility] [address] [place] [address] Dr. Rima CharlesMethodology:CommentMercy Health Lorain Hospital on above: Result Comment: This liquid based ThinPrep(R) pap test was screened with the use of an image guided system.Performed By: #### CBC #### [facility] [address] [place] [address] Dr. Rima CharlesNote:CommentMercy Health Lorain Hospital on above:Result Comment: The Pap smear is a screening test designed to aid in the detection of premalignant and malignant conditions of the uterine cervix. It is not a diagnostic procedure and should not be used as the sole means of detecting cervical cancer. Both false-positive and false-negative reports do occur. .Performed By: #### CBC #### [facility] [address] [place] [address] Dr. Rima CharlesPerformed by:CommentMercy Health Lorain Hospital on above: Result Comment: Piter Cagle, Wool Mixer (ASCP)Performed By: #### CBC #### [facility] [address] [place] [address] Dr. Rima Bryson reviewed by:[facility] on above:Result Comment: Hannah Morejon, Supervisory Wool Mixer (ASCP) Performed By: #### CBC #### [facility] [address] [place] [address] Dr. Rima CharlesReflex Criteria:CommentMercy Health Lorain Hospital on above:Result Comment: The HPV DNA reflex criteria were not met with this specimen result therefore, no HPV testing was performed. .Performed By: #### CBC #### [place] [address] [address] Rima CharlesSpecimen adequacy:CommentMercy Health Lorain Hospital on above:Result Comment: Satisfactory for evaluation. Endocervical and/or squamous metaplastic cells (endocervical component) are present. Areas of partially obscuring blood are present.Performed By: #### CBC #### [facility] [address] [place] [address] Dr. Rima Cornell T4on 25-76-7802Hdgi T4 [Mass/Vol]1.01 ng/dLNormal0.76-1.46 [facility] on above:Performed By: #### FT4 #### [facility] [address] [place] [address] Dr. Rima BrowerHoagustín 46-90-6378FAA3.997 uIU/mLCritically high0.358-3.740[facility] on above:Performed By: #### TSH #### [facility] [address] [place] [address] Dr. Rima CharlesVAGINITIS/VAGINOSIS DNA PROBEon 59-95-6812Vuesfih speciesNegative NormalNegativeThe [facility] on above:Performed By: #### CBC #### [facility] [address] [place] [address] Dr. Rima Moonerejoba vaginalisNegativeNormalNegativePremier Health [facility] Comment on above:Performed By: #### CBC #### [facility] [address] [place] [address] Dr. Rima Calvo vaginalisNegativeNormalNegativePremier Health [facility] Comment on above:Performed By: #### CBC #### [facility] [address] [place] [address] Dr. Rima CharlesCHLAMYDIA/GONOCOCCUS FRANSISCO (SWAB/URINE/PAPon 37-52-5601Kxoyfbdzs trachomatis, NAANegativeNormalNegativePremier Health Miami [facility] Hospital NorthComment on above: Performed By: #### CBC #### [facility] [address] [place] [address] Dr. Rima CharlesNeisseria gonorrhoeae, NAANegativeNormalNegativePremier Health [facility] Hospital NorthComment on above:Performed By: #### CBC #### [facility] [address] [place] [address] Dr. Rima CharlesVAGINITIS/VAGINOSIS DNA PROBEon 15-58-3225Mvuxucv speciesNegative NormalNegativePremier Health Miami [facility] Hospital NorthComment on above:Performed By: #### VAGINT #### [facility] [address] [place] [address] Dr. Rima Moonerebenedict vaginalisNegativeNormalNegativePremier Health [facility] Comment on above:Performed By: #### VAGINT #### [facility] [address] [place] [address] Dr. Rima Calvo vaginalisNegativeNormalNegativePremier Health [facility] Comment on above:Performed By: #### VAGINT #### [facility] [address] [place] [address] Dr. Rima Livingston 79-65-3172IJU8.494 uIU/mLNormal0.470-4.680Prem[facility] Hospital NorthComment on above:Performed By: #### CBC #### [facility] [address] [place] [address] Dr. Rima Dougherty RANGESEE Kindred Hospital LimaComment on above: Result Comment: <0.34 UIU/ml HYPERTHYROID 0.34-5.60 UIU/ml EUTHYROID >5.60 UIU/ml HYPOTHYROIDPerformed By: #### CBC #### [facility] [address] [address] [address] Rima Barnes MATERNAL FOR SPINA BIFIDAon 88-27-1055JXP MoM0.98Norwalk [facility] HospitalComment on above:Performed By: #### AFPMAT #### [facility] [address] [address] [address] Rima Barnes Value36.3 ng/mLNormalPremier Health Miami Valley Hospital NorthComment on above: Performed By: #### AFPMAT #### [facility] [address] [address] [address] Rima Barnes, Serum for Spina BifidaReHolzer Medical Center – Jackson Comment on above:Performed By: #### AFPMAT #### [facility] [address] [address] [address] Rima CurrieBarberton Citizens HospitalComment on above:Result Comment: Alie Moon, Ph.D., [facility] Director . References: Available Upon Request. . Multiples Of Median Cutoffs For AFP Elevations Murphy 2.5 Black 2.8 IDD 2.0 Twins 4.5 Abbreviation Definitions IDD - Insulin Dep Diabetes OSBR - Open Spina Bifida Risk . For further inquiries contact [facility] at [phone].Performed By: #### AFPMAT #### [facility] [address] [address] [address] Rima Pedro Age Collection Date16.0 weeksNorwalk Memorial Hospital Comment on above:Performed By: #### AFPMAT #### [facility] [address] [address] [address] Rima Pedroat, Age Based onLMPNormalPremier Health [facility] Hospital NorthComment on above:Result Comment: Recalculations are not recommended when gestational dating by LMP and ultrasound are within 10 days.Performed By: #### AFPMAT #### [facility] [address] [place] [address] Dr. Rima CharlesLouis Stokes Cleveland VA Medical CenterComascension macomb on above:Performed By: #### AFPMAT #### [facility] [address] [place] [address] Dr. Rima CharlesInterpretationBarberton Citizens HospitalComascension macomb on above: Result Comment: Interpretation: Screen Negative [...] Customer Services to discuss available options. The [employer] recommends amniocentesis be offered to women age 35 and older.Performed By: #### AFPMAT #### [facility] [address] [place] [address] Dr. Rima CharlesMaternahaley Age at EDD23.4 yrNorwalk Memorial HospitalComascension macomb on above:Performed By: #### AFPMAT #### [facility] [address] [place] [address] Dr. Rima Erazo [facility] HospitalCom[facility] on above: Performed By: #### AFPMAT #### [facility] [address] [place] [address] Dr. Rima CharlesOSBR Risk 1 [id number] Memorial HospitalComascension macomb on above: Performed By: #### AFPMAT #### [facility] [address] [place] [address] Dr. Rima Meadows.[facility] on above:Performed By: #### AFPMAT #### [facility] [address] [place] [address] Dr. Rima MccoyAkron Children's HospitalComment on above: Performed By: #### AFPMAT #### [facility] [address] [place] [address] Dr. Rima Urena Results:NegativeNormalThe [facility] HospitalComment on above: Performed By: #### AFPMAT #### [facility] [address] [place] [address] Dr. Rima Del Rosario B SURFACE ANTIGEN SCREENon 54-75-3861PSqGn ScreenNegative NormalNegativeThe [facility] HospitalComment on above:Performed By: #### HBSANS #### [facility] [address] [place] [address] Dr. Rima RiosTIS C ANTIBODYon 30-36-3983Avw C Virus Ab<0.8Vnwxjq6.0-0.9 [facility] on above:Result Comment: Negative: < 0.8 Indeterminate: 0.8 - 0.9 Positive: > 0.9 . The CDC recommends that a positive HCV antibody result be followed up with a HCV Nucleic Acid Amplification test (267259).Performed By: #### HCV #### [facility] [address] [place] [address] Dr. Rima Chery 1 AND 2 WITH REFLEXon [id number] Screen 4th Generation wRfxNon-ReactiveNormalNon ReactiveThe [facility] HospitalComascension macomb on above: Performed By: #### HIV12 #### [facility] [address] [place] [address] Dr. Rima CharlesRPR QUANTon 23-09-7744Okdgs Plasma Reagin, QuantNon-Reactive NormalNonRea<1:1[facility] on above:Performed By: #### CBC #### [facility] [address] [place] [address] Dr. Rima MirelesBELLA AB IGGon 08-63-4178Xltnmay Antibodies, IgG2.33 index NormalImmune >0.99[facility] on above:Result Comment: Non- immune <0.90 Equivocal 0.90 - 0.99 Immune >0.99Performed By: #### RUBIGG #### [facility] [address] [address] [address] Rima Sierra AUTO DIFFon 09-56-3054CMPR #0.0 103/ulNormal0.0-0.1The [facility] Hospitalment on above:Performed By: #### CBC #### [facility] [address] [address] [address] Rima CharlesBasophils/100 WBC (Bld)0.4 %Normal0.2-2.0The [facility] Comment on above:Performed By: #### CBC #### [facility] [address] [place] [address] Dr. Rima Fuller #0.0 103/ulNormal0.0-0.7The [facility] HospitalComment on above: Performed By: #### CBC #### [facility] [address] [place] [address] Dr. iRma Leahyosinophils/100 WBC (Bld)0.6 %Critically low0.9-7.0The [facility] HospitalComment on above:Performed By: #### CBC #### [facility] [address] [place] [address] Dr. Rima Leahyrythrocyte distribution width (RBC) [Ratio]12.0 %Auuyeu86.0-15.0 The [facility] HospitalComment on above:Performed By: #### CBC #### [facility] [address] [place] [address] Dr. Rima CharlesHematocrit (Bld) [Volume fraction]37.5 %Fxjpfl48.0-48.0The [facility] HospitalComment on above:Performed By: #### CBC #### [facility] [address] [place] [address] Dr. Rima CharlesHemoglobin (Bld) [Mass/Vol]13.2 g/iKKkzkyv50.0-16.0The [facility] Hospitalment on above:Performed By: #### CBC #### [facility] [address] [place] [address] Dr. Rima Carreno #0.02 10e3/ulNormal0.00-0.03The [facility] Hospitalment on above:Performed By: #### CBC #### [facility] [address] [address] [address] Rima Carreno %0.3 %Normal0.0-0.5The [facility] HospitalComascension macomb on above: Performed By: #### CBC #### [facility] [address] [address] [address] Rima Singleton #1.4 103/ulNormal1.2-3.8The [facility] HospitalComascension [facility]omb on above:Performed By: #### CBC #### [facility] [address] [place] [address] Dr. Rima Jayhocytes/100 WBC (Bld)20.2 %Critically low20.5-60.0The [facility] HospitalComascension [facility]omb on above:Performed By: #### CBC #### [facility] [address] [place] [address] Dr. Rima Lr DIFF REQNONormalThe [facility] HospitalComment on above: Performed By: #### CBC #### [facility] [address] [place] [address] Dr. Rima Nicholas (RBC) [Entitic mass]33.2 iwEhrymu74.7-34.0[facility] on above:Performed By: #### CBC #### [facility] [address] [place] [address] Dr. Rima Fall (RBC) [Mass/Vol]35.2 g/sLIabljm10.9-35.2The [facility] Hospitalment on above:Performed By: #### CBC #### [facility] [address] [place] [address] Dr. Rima Fall (RBC) [Entitic vol]94.5 pPCcxvkj82.0-99.0[facility] on above:Performed By: #### CBC #### [facility] [address] [place] [address] Dr. Rima Grossman #0.4 103/ulNormal0.3-0.8The [facility] HospitalComment on above:Performed By: #### CBC #### [facility] [address] [place] [address] Dr. Rima Wenocytes/100 WBC (Bld)6.1 %Normal1.7-12.0The [facility] Comment on above:Performed By: #### CBC #### [facility] [address] [place] [address] Dr. Rima Huston #5.1 103/ulNormal1.4-6.5The [facility] HospitalComment on above:Performed By: #### CBC #### [facility] [address] [place] [address] Dr. Rima Bobutrophils/100 WBC (Bld)72.4 %Akgjyv12.0-75.0The [facility] HospitalComment on above:Performed By: #### CBC #### [facility] [address] [place] [address] Dr. Rima Bradfordlet mean volume (Bld) [Entitic vol]11.2 fLNormal9.5-13.5The [facility] HospitalComment on above:Performed By: #### CBC #### [facility] [address] [place] [address] Dr. Rima CharlesPLT221 103/imEnsvtn565-909Fds [facility] HospitalComment on above: Performed By: #### CBC #### [facility] [address] [place] [address] Dr. Rima CharlesRBC3.97 106/ulCritically low4.20-5.40The [facility] HospitalComment on above:Performed By: #### CBC #### [facility] [address] [place] [address] Dr. Rima CharlesWBC7.1 103/ulNormal4.0-11.0The [facility] HospitalComment on above: Performed By: #### CBC #### [facility] [address] [place] [address] Dr. Rima Cardenas URINEon 96-57-7454KVJZHXF URINECulture Observations: No growthNoMorrow County HospitalComment on above:Performed By: #### CBC #### [facility] [address] [place] [address] Dr. Rima CharlesGLYCOHEMOGLOBIN A1Con 69-59-2276HHM RECOMMENDATIONADA THERAPEUTIC TARGET 6.0 - 7.0 ACTION SUGGESTED > 7.0NoMorrow County HospitalComment on above:Performed By: #### A1C #### [facility] [address] [place] [address] Dr. Rima CharlesGlucose [Mass/Vol]111 mg/dLNorwalk Memorial HospitalComment on above:Performed By: #### A1C #### [facility] [address] [place] [address] Dr. Rima CharlesHbA1c (Bld) [Mass fraction]5.5 %Normal<=6.0[facility] Comment on above:Performed By: #### A1C #### [facility] [address] [place] [address] Dr. Rima Escalante BOX TEST PT SEND OUTon [id number] TO REF LAB12/09/20 NormalPremier Health Miami [facility] Hospital NorthComascension macomb on above:Performed By: #### CBC #### [facility] [address] [place] [address] Dr. Rima BrowerHoagustín 55-28-8852SRP5.651 uIU/mLNormal0.470-4.680The [facility] HospitalComascension macomb on above:Performed By: #### CBC #### [facility] [address] [place] [address] Dr. Rima Dougherty RANGESEE BELOWNorwalk Memorial HospitalComment on above: Result Comment: <0.34 UIU/ml HYPERTHYROID 0.34-5.60 UIU/ml EUTHYROID >5.60 UIU/ml HYPOTHYROIDPerformed By: #### CBC #### [facility] [address] [place] [address] Dr. Rima CharlesTYPE AND SCREENon 78-21-3574ZNQQ AND SCREENNegativeNoMorrow County HospitalComment on above:Performed By: #### CBC #### [facility] [address] [address] [address] Rima Butler PREG TVon [id number] PREG TVEXAMINATION: US PREG TV HISTORY: Urine [...] Electronically authenticated by: LILIANE POPE Date: 2020-12-02 09:34[facility] Vital Signs Date TimeVital SignValuePerforming FonghrmszLtjutqlf80-14-7226 08:39-0500Body mass index (BMI) [Ratio]26.29 kg/k9Yxmtb [employer] DO Work Phone: [phone] [place], [place] [address]Omwpemxpvu47-90-9783 08:39-0500Body bxyodb44.67 kgCorey [employer] Work Phone: [phone] [place], [place] [address]Tpnfbzgwze13-40-6979 08:39-0500Diastolic blood razszvni54 mm[Hg][employer] Work Phone: [phone] [place], [place] [address]Diopcbllhz22-20-7677 08:39-0500Systolic blood yeiresua463 mm[Hg][employer] Work Phone: [phone] [place], [place] [address]Lajnfmuaqc35-73-7331 08:35-0400Body mass index (BMI) [Ratio]26.71 kg/r7Npsii Joanna cinvolve Work Phone: [phone]' HospitalUktaejkebf14-82-6599 08:35-0400Body nyrucm67.8 kg [employer] Work Phone: [phone]' HospitalUnzxinvenz85-19-5654 08:35-0400Diastolic blood vlzjdrsy01 mm[Hg]Santosh Joanna DO Work Phone: [phone] [place], [place] [address]Ujwbcvatkj59-83-8071 08:35-0400Systolic blood rkorytgy951 mm[Hg]Santosh Joanna DO Work Phone: [phone] [place], [place] [address]Xithcryjbx08-75-3511 11:20-0400Body mass index (BMI) [Ratio]25.38 kg/k7Igrdx Joanna DO Work Phone: [phone] [place], [place] [address]Irgmsvslea52-06-6290 11:20-0400Body hnyopz51.17 kgCorey Joanna DO Work Phone: [phone] [place] [address]-13-2025 11:20-0400Diastolic blood orihdstq31 mm[Hg]Santosh Joanna DO Work Phone: [phone] [place], [place] [address]Gwblmhefkn56-98-2721 11:20-0400Systolic blood vpbaiodo580 mm[Hg]Santosh Joanna DO Work Phone: [phone] [place], [place] [address]9-22-2025 10:23-0400Body mass index (BMI) [Ratio]24.79 kg/m2Amy Brea PA Work Phone: [phone])[facility] [place], [place] [address]Xxpmyzvhis92-29-9336 10:23-0400Body .59 kgAmy Brea PA Work Phone: [phone])[facility] [place], [place] [address]Gmptzjztby31-18-8053 10:23-0400Diastolic blood mqwyyfdg62 mm[Hg]Erum Guidry PA Work Phone: [phone])[facility] [place], [place] [address]Muhwrroqmr95-02-0192 10:23-0400Systolic blood hwobvlph776 mm[Hg]Erum Guidry PA Work Phone: [phone] [place], [place] [address]Qgzqewrdav28-61-9254 11:45-0400Body mass index (BMI) [Ratio]23.15 kg/h9Upxkc Joanna DO Work Phone: [phone])[facility] [place], [place] [address]Hpwxlzyixl16-62-2167 11:45-0400Body fjaugx01.1 kg Santosh Joanna DO Work Phone: [phone])[facility] [place], [place] [address]Hgvmfhcsbl92-91-6355 11:45-0400Diastolic blood mm[Hg]Santosh Joanna DO Work Phone: [facility]' HospitalKkgdjiyzav54-98-2323 11:45-0400Systolic blood ycgkneme869 mm[Hg]Santosh Bhaktao DO Work Phone: [phone]08-18-2025 11:51-0400Body iuozun493.1 cmJacklyn Campos MD Work Phone: [phone] [place], [place] 978[address]08-18-2025 11:51-0400Body mass index (BMI) [Ratio]23.03 kg/k2RncpcvhaJacklyn Campos MD Work Phone: [phone])[address] [place], [place] 978[address]08-18-2025 11:51-0400Body ghquoh43.78 kgJacklyn Campos MD Work Phone: [phone])[address] [place], [place] 978[address]08-18-2025 11:51-0400Diastolic blood qzwuptbx20 mm[Hg]Jacklyn Campos MD Work Phone: [phone])[address] [place], [place] 9781408-18-2025 11:51-0400Heart rate 94 /minJacklyn Campos MD Work Phone: [phone])[address] [place], [place] 978[address]08-18-2025 11:51-0400Systolic blood wokobidy09 mm[Hg]Jacklyn Campos MD Work Phone: [phone] [place], [place] 9781407-28-2025 10:13-0400Body mass index (BMI) [Ratio]22.38 kg/m2Erum HAYS Work Phone: [phone] [place], [place] [address]Cwbfhscphh12-31-3375 10:13-0400Body .01 kgErum HAYS Work Phone: [phone] [place], [place] [address]Zwiamjvuqx80-00-7143 10:13-0400Diastolic blood bmrgfmit15 mm[Hg]Erum HAYS Work Phone: [phone] [place], [place] [address]Yxydjfeopw89-38-5587 10:13-0400Systolic blood zvgixglu542 mm[Hg]Erum HAYS Work Phone: [facility]' HospitalFjesxzwheb61-90-9239 11:10-0400Body mass index (BMI) [Ratio]22.1 kg/n9Jfvms Joanna DO Work Phone: [phone] [place], [place] [address]Ttxxfnhedt72-70-2518 11:10-0400Body hjlyhe05.24 kgCorey Joanna DO Work Phone: [phone])[facility] [place], [place] [address]Xdvnvnonvv63-08-6795 11:10-0400Diastolic blood lwlpreoi40 mm[Hg]Santosh Joanna DO Work Phone: [phone] [place], [place] [address]Vwongetspf08-11-9756 11:10-0400Systolic blood cslqmiiv657 mm[Hg]Santosh Joanna DO Work Phone: [phone])[address] [place], [place] [address]5-30-2025 10:00-0400Body mass index (BMI) [Ratio]22.86 kg/m2[facility]05-30-2025 10:00-0400Body paxmkb76.32 kgUniversity Health Lakewood Medical Center05-30-2025 10:00-0400Diastolic blood hswyjxqx41 mm[Hg][facility]05-30-2025 10:00-0400Systolic blood kotinxci206 mm[Hg][facility]09-23-2024 14:19-0400Body mass index (BMI) [Ratio]21.15 kg/q5Qvqjl Joanna DO Work Phone: [phone])[facility] [place], [place] [address]Jjwsoejmop95-21-0654 14:19-0400Body cpowpu79.66 kgCorey Joanna DO Work Phone: [phone]-[facility] BaptistHarry [facility]' HospitalBxphmiojgo07-97-0697 14:19-0400Diastolic blood scqbiojh83 mm[Hg]Santosh Joanna DO Work Phone: [facility]' HospitalKhqowvlfkv35-59-7739 14:19-0400Systolic blood bfyavpak846 mm[Hg]Santosh Joanna DO Work Phone: [phone])424-[address] [place], [place] [address]Aeqzanaabb19-54-4588 15:43-0400Blood Pressure Eladia Thornton [phone]-SsyjyC[facility] Kxac24-54-6533 15:43-0400Diastolic blood trjpcxic90 mm[Hg]Ya Thornton 282-6409Coninp-Itnhy[address] [place], [place] 544[address]05-20-2024 15:43-0400Heart vtlq102 /Waqar Thornton 226-6368Ksacie-Gxqsv[address] [place], [place] 544[address]05-20-2024 15:43-0400Respiratory rate18 /Waqar Thornton 457-2727Ayidmo-Dhwbv[address] [place], [place] 544[address]05-20-2024 15:43-2978KuR6% (BldA) [Mass fraction]100 %Ya Thornton [address] [place], [place] [address]57[address]05-20-2024 15:43-0400Systolic blood slanotei955 mm[Hg]Ya Thornton [address] [place], [place] 8571812-20-2023 07:21-0500Blood Pressure LocationYa Thornton [address] [place], [place] 8571812-20-2023 07:21-0500Body xczgtasufxr23.52 [degF]Ya Thornton [address] [place], [place] 8571812-20-2023 07:21-0500Diastolic blood idgcddaf55 mm[Hg]Ya Thornton [address] [place], [place] 857[address]12-20-2023 07:21-0500Heart rate91 /Waqar Thornton [address] [place], [place] 8571812-20-2023 07:21-0500Respiratory rate18 /Waqar Thornton [address] [place], [place] 8571812-20-2023 07:21-4780LrS9% (BldA) [Mass fraction]100 %Ya Thornton [address] [place], [place] [address]57[address]12-20-2023 07:21-0500Systolic blood orquxdvl901 mm[Hg]Ya Thornton 392-7421Tptwxq-EeovjWilson Street Hospital12-04-2023 12:53-0500Blood Pressure LocationYa Thornton 399-5736Xawuzc-Zhbpg[address] [place], [place] 544[address]12-04-2023 12:53-0500Diastolic blood rgceqkct45 mm[Hg]Ya Thornton [phone]-Kcgta[address] [place], [place] 544[address]12-04-2023 12:53-0500Heart nkjk929 /Waqar Thornton [phone]-Kbhmx[address] [place], [place] 544[address]12-04-2023 12:53-0500Respiratory rate18 /Waqar Thornton 063-5261Sbrhwp-Qjqqp[address] [place], [place] 544[address]12-04-2023 12:53-7184ApH5% (BldA) [Mass fraction]99 %Ya Thornton [phone]-Rbekp[address] [place], [place] 544[address]12-04-2023 12:53-0500Systolic blood riojwcsm262 mm[Hg]Ya Thornton 075-5557Tjyjjn-Lzett[address] [place], [place] 544[address]09-12-2023 12:10-0400Blood Pressure LocationDaniel Gray [phone]-PffctAccess [facility]09-12-2023 12:10-0400Body ezblyqybomo00.52 [degF]Daniel Gray 646-6422Tghkcn-JmdfqAccess [facility]09-12-2023 12:10-0400Diastolic blood dcpcfgoh10 mm[Hg]Daniel Gray 641-4821Rmerkc-GogudAccess Hospital [facility]09-12-2023 12:10-0400Heart rate97 /Hans Gray 753-4256Kqzzwa-UzxxzAccess [facility]09-12-2023 12:10-0400Systolic blood ptfsxalb270 mm[Hg]Daniel Gray 305-1185Suewus-XwtcxAccess Hospital [facility]08-24-2023 09:20-0400Blood Pressure LocationYa Thornton [phone]-Mhnkf[address] [place], [place] 544[address]08-24-2023 09:20-0400Body jmcfwxozwgs75.06 [degF]Yasampson Thornton [phone]-Ncahm[address] [place], [place] 544[address]08-24-2023 09:20-0400Diastolic blood mm[Hg]Ya Thornton 812-5700Napjqa-Amslq[address] [place], [place] 5440108-24-2023 09:20-0400Heart rate76 /minEgerald Thornton [phone]-Tvwxt[address] [place], [place] 5440108-24-2023 09:20-2194GbW1% (BldA) [Mass fraction]98 %Yasampson Thornton [phone]-Cfdtn[address] [place], [place] 5440108-24-2023 09:20-0400Systolic blood aligrobw990 mm[Hg]Ya Thornton [phone]-Twzmq[address] [place], [place] 5440102-13-2023 14:14-0500Blood Pressure LocationRitu Desai [phone]-Xdyxw[address] [place], [place] 5440102-13-2023 14:14-0500Body excoybxyxrm75.7 [degF]Ritu Desai 491-4164Ntgjas-Fcjbg[address] [place], [place] 5440102-13-2023 14:14-0500Diastolic blood vcpkquki11 mm[Hg]Ritu Desai 285-8577Sdvewi-Ysbgh[address] [place], [place] 5440102-13-2023 14:14-0500Heart rate71 /minRitu Desai 365-7680Elflww-Acntz[address] [place], [place] 5440102-13-2023 14:14-9199SnJ6% (BldA) [Mass fraction]98 %Ritu Desai 429-0846Cxacgt-TdvmiSumma Health Primary Hpdw42-35-9573 14:14-0500Systolic blood rvnruqov084 mm[Hg]Ritu Moralesell 144-7617Vnsdfl-DpgasSumma Health Primary Elss05-70-7361 02:06-0400Body ldtjos66.968 kgDR [facility] Bing, MD, Cancer CenterComment on above:Performed By: #### AFPMAT #### [facility] [address] [address] [address] Rima Charles Encounters Encounter DateEncounter TypeCare ProviderFacilityStart: 01-28-2025 End: 31-33-8210Icsiec flowsheetCorey Joanna DO Work Phone: [facility]BGYNStart: 01-28-2025 End: 00-44-5810Fwbtis flowsheetCorey Joanna DO Work Phone: [facility] [place] [facility]BGYNStart: 01-28-2025 End: 47-50-6012Sibwnzjy flow sheetCorey Joanna DO Work Phone: [facility] [place] OBGYNComment on above:Third trimester ([facility]); 32 weeks gestation of ([facility]); Thyroid disease; History of prior with IUGR ; Hypothyroidism, unspecified typeStart: 01-28-2025 End: 90-41-5330ujxlfxoctcQZQWF FAZIONot AvailableStart: 01-14-2025 End: 00-59-6398Qygxed flowsheetCorey Joanna DO Work Phone: [facility] [place] [facility]YNStart: 01-14-2025 End: 97-63-3850Kjmkli flowsheetCorey Joanna DO Work Phone: [facility] [place] [facility]BGYNStart: 01-14-2025 End: 36-92-6218Zirbzavt flow sheetCorey Joanna DO Work Phone: [facility] OBGYNComment on above:Third trimester ([facility]); 30 weeks gestation of ([facility])Start: 01-14-2025 End: 90-20-8179yssxqxycjvKNSFH FAZIONot AvailableStart: 33-26-5193ukmzpgkmlf Martaishmael RickettsmarcusFacility:[facility] PCStart: 12-31-2024 End: 44-10-6665Ntloqmxg flow sheetCorey Joanna DO Work Phone: NOLU [facility] OBGYNComment on above:Third trimester ([facility]); 28 weeks gestation of ([facility])Start: 12-31-2024 End: 37-12-5885klyfhhjuzeTBBIW FAZIONot AvailableStart: 12-12-2024 End: 35-38-7884Srpwncnth Result EncounterErum HAYS Work Phone: NOVE External Department UnsolicitedStart: 12-12-2024 End: 52-15-9496Arkqzluzy Result EncounterErum HAYS Work Phone: NOZW External Department UnsolicitedStart: 12-11-2024 End: 93-45-6437dhaupsycqnOBNJA R [facility] HOSPITALTaurusMedisunny [facility] HospitalStart: 12-11-2024 End: 86-07-2766Phusuzuil Result EncounterErum HAYS Work Phone: NOTI External Department UnsolicitedStart: 12-11-2024 End: 19-15-6297Shrwyyxxl Result EncounterErum HAYS Work Phone: NOTP External Department UnsolicitedStart: 12-10-2024 End: 32-44-3533Drdcxz flowsheetErum HAYS Work Phone: [facility] [facility]BGYNStart: 12-10-2024 End: 92-66-8011Omsecm oliviaheetErum HAYS Work Phone: [facility] [place] [facility]BGYNStart: 12-10-2024 End: 83-96-6527Qkcomfuy flow sheetErum HAYS Work Phone: NOJJ [place] OBGYNComment on above:Size of fetus inconsistent with dates in second trimester ([facility]) (Primary Dx); Second trimester ([facility]); 25 weeks gestation of ([facility]); Diabetes mellitus screeningStart: 12-10-2024 End: 48-93-8317augayfpldfWOD RAMFORTINONot AvailableStart: 11-27-2024 End: 08-04-8193osurdbguywQTUFN R [facility] HospitalStart: 11-20-2024 End: 57-23-8385gioyjrgeltYGNBQ R [facility] HospitalStart: 11-12-2024 End: 42-88-0546Zgwjbb flowsheetCorey Joanna DO Work Phone: noms [place] [facility]BGYNStart: 11-12-2024 End: 42-99-6045Gzjuxu flowsheetCorey Joanna DO Work Phone: [facility]BGYNStart: 11-12-2024 End: 23-70-5458Ixinanoa flow sheetCorey Joanna DO Work Phone: noms [facility] OBGYNComment on above:Hypothyroidism, unspecified type (Primary Dx); Second trimester ([facility]); 21 weeks gestation of ([facility]); Vaginal discharge; STD exposureStart: 11-12-2024 End: 76-53-3947icelfzvjacOBCKT FAZIONot AvailableStart: 11-07-2024 End: 76-31-4307Wcuxuasik Result EncounterCorey Joanna DO Work Phone: noms External Department UnsolicitedStart: 11-07-2024 End: 55-59-2164Mksbgyqih Result EncounterCorey Joanna DO Work Phone: noms External Department UnsolicitedStart: 11-06-2024 End: 65-79-8941Swwomn Sesar Smith RNMaternal- Medicine at [facility]ina HospitalComment on above: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 trimester (Primary Dx); History of prior with IUGR ; History of premature rupture of membranesStart: 11-05-2024 End: 32-47-0376Jxebal consultation new/estab patient 58 Jesus Campos MD Work Phone: [phone]-Hvrxv [facility] Comment on above:20 weeks gestation of (Primary Dx); Low-lying placenta; 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 trimester; History of prior with IUGR ; Family history of autism; History of gestational diabetes in prior , currently ; History of prior with short cervix, currently ; History of premature rupture of membranesStart: 11-05-2024 End: 51-80-4756cygvkgguvzCOPSF [facility] HospitalStart: 10-15-2024 End: 21-43-9007Dbwmqy flowsLizzie HAYS Work Phone: [facility]oms [facility]BGYNStart: 10-15-2024 End: 45-06-5279Bsxoir David HAYS Work Phone: NOTZ [place] [facility]BGYNStart: 10-15-2024 End: 93-45-5263Qbwynshan Result EncounterErum HAYS Work Phone: noms External Department UnsolicitedStart: 10-15-2024 End: 60-63-4598Cvbepcmw flow Mahamed HAYS Work Phone: NOPA [facility] OBGYNComment on above:Second trimester ([facility]); 17 weeks gestation of ([facility])Start: 10-15-2024 End: 97-41-7300agvzdxdyjcUUF RAMEYNot AvailableStart: 10-02-2024 End: 52-75-5121Xgpksvvst Result EncounterCorey Joanna DO Work Phone: noms External Department UnsolicitedStart: 10-02-2024 End: 48-00-7217Rrodgwham Result EncounterCorey Jaonna DO Work Phone: noms External Department UnsolicitedStart: 09-24-2024 End: 64-20-4266Qkqjs Rob Campos MD Work Phone: [phone]-Zioac [facility] Start: 09-24-2024 End: 34-40-9837Qwemfdqxz Result EncounterCorey Joanna DO Work Phone: noms External Department UnsolicitedStart: 09-24-2024 End: 64-31-3925Qbszicewc Result EncounterCorey Joanna DO Work Phone: noms External Department UnsolicitedStart: 09-20-2024 End: 53-51-0367Nkquck Kashif Gutierrez RNMaternal- Medicine at [facility] HospitalComment on above:Thyroid disease affecting (Primary Dx); History of prior with IUGR newbornStart: 09-17-2024 End: 50-84-3492Aefvoj flowsheetCorey Joanna DO Work Phone: noms BCP OBStart: 09-17-2024 End: 06-20-2526Uthvec flowsheetCorey Joanna DO Work Phone: noms BCP OBStart: 09-17-2024 End: 25-55-0911xbtmaduptiAUGBQ FAZIONot AvailableStart: 09-17-2024 End: 78-75-5617Rzgfnqes flow sheetCorey Joanna DO Work Phone: noms BCP OBComment on above:13 weeks gestation of ([facility]); Second trimester ([facility]); Thyroid disease ; History of prior with IUGR ; Diabetes mellitus screeningStart: 09-12-2024 End: 70-22-3233Bljfixljl Result EncounterCorey Joanna DO Work Phone: noms External Department UnsolicitedStart: 09-12-2024 End: 36-32-7815Irqwzenpg Result EncounterCorey Joanna DO Work Phone: noms External Department UnsolicitedStart: 08-21-2024 End: 96-80-2953Qoroniksc Result EncounterCorey Joanna DO Work Phone: NOMS External Department UnsolicitedStart: 08-21-2024 End: 39-07-2528Qsceqalrs Result EncounterCorey Joanna DO Work Phone: NOMS External Department UnsolicitedStart: 08-17-2024 End: 26-02-7775Jbaspy outpatient visit 5 minutesNoms Bcp Ob Joanna NurseNOMS BCP OBComment on above:GA: 6a0mXrljr: 08-17-2024 End: 36-22-9624ctrcrrmmmuHVALJ FAZIONot AvailableStart: 07-09-2024 End: 98-62-5969wqznetqhrkUbzyhmEric AlmanzarFacility:[facility] PCStart: 07-05-2024 End: 64-93-1733sxdvubmbeoPjspt J SosinskiFacility:[facility] PCStart: 07-04-2024 End: 57-67-9838vjobqaycakUawzwxEric AlmanzarFacility:FTMCStart: 07-04-2024 End: 29-43-9945Wyxehoo encounter Patsy Almanzar [facility] Start: 05-14-2024 End: 74-58-7973jksnzryuctXZTBZY E COSTINAkron [facility]'s [facility] Centertart: 05-14-2024 End: 98-19-8083Hgzvtxvnsc hospital visit by Krys Jurado MD Work Phone: [facility] LabComment on above:Family history of autismStart: 12-12-2023 End: 64-16-2833Wdcvyg flowsheetCorey Joanna DO Work Phone: [facility] BCP OBStart: 12-12-2023 End: 67-46-2640Twhfhk flowsheetCorey Joanna DO Work Phone: [facility] BCP OBStart: 12-12-2023 End: 48-83-1357Lcryrnzuy Result EncounterCorey Joanna DO Work Phone: noMS External Department UnsolicitedStart: 12-12-2023 End: 27-88-1029Iywkcrb encounter procedureCorey Joanna DO Work Phone: [facility] Work Phone: Start: 12-12-2023 End: 01-20-3981Pwrlzokf preventive med est patient 18-39 yrsCorey Joanna DO Work Phone: NOXC BCP OBComment on above:Well woman exam with routine gynecological examStart: 09-07-2023 End: 08-01-7267aohuuotpopYcjqsklql L ClarkFacility:FTMCStart: 09-07-2023 End: 40-32-7363Lntyolm encounter procedureYa Thornton [facility] Start: 08-08-2023 End: 60-83-2304ctuuqscrxkEgkkimkbv L ClarkFacility:[facility] PCStart: 08-08-2023 End: 12-92-1685Hktlyqs encounter Rosina Thornton [phone]-FlbyqSumma Health Primary Care Start: 07-12-2023 End: 55-85-0341pvlvxyjrcuOIFUCILG E PERRYFacility:EU ueStart: 07-12-2023 End: 92-77-8190Vjxqywd encounter procedureJENNIFER E SUKH [facility]ue start: 05-16-2023 End: 13-86-7165jhvfhwhzceTzdsyjzbp L ClarkFacility:FTMCStart: 05-16-2023 End: 20-72-7974zgrtwgtorvIsiuspelt L ClarkFacility:[facility] PCStart: 04-01-2023 ambulatoryYa ThorntonFacility:EU BellevueStart: 03-24-2023 End: 99-00-4465nwbzzwadvqCsyvvmoca L ClarkFacility:FTMCStart: 03-24-2023 End: 69-30-5481Tqtkpjj encounter procedureYa Thornton [facility] Start: 03-22-2023 End: 38-17-6991pidsszgpcxDacdfukeg L ClarkFacility:FTMCStart: 03-22-2023 End: 55-47-0979Gukozpm encounter procedureYa Thornton [facility] Start: 03-09-2023 End: 79-59-2391Enr Drop offYa Thornton [facility] start: 03-09-2023 End: 41-99-6250hsejjltywnFkrcuofdh L ClarkFacility:FTMCStart: 03-09-2023 End: 78-85-2002Ywcciav encounter procedureYa Thornton [phone]-IufmdSumma Health Primary Care Start: 02-21-2023 End: 17-66-4911Tyh Drop offYa Thornton [facility] Start: 02-21-2023 End: 25-13-8544ekzwbdtzbaVfbtrhmpu L ClarkFacility:FTMCStart: 02-21-2023 End: 57-47-4011Dirclmy encounter procedureYa Thornton [phone]-JsszrSumma Health Primary Care Start: 11-30-2022 End: 50-16-5186zbbxeaanqzWfbf A SteinmetzFacility:[facility] DHStart: 11-30-2022 End: 55-75-4784Azclihb encounter procedureDaniel Gray [phone]-NactdSumma Health [facility]est[facility] Start: 49-70-9114izxzcskyltAnruhsjsv Clark Facility:[facility] DHStart: 11-11-2022 End: 62-81-2450smhwubtqryZwaxufxuh L ClarkFacility:[facility] PCStart: 11-11-2022 End: 38-51-2272Qyynvgi encounter procedureYa Thornton [phone]-ZbpkwSumma Health Primary Care Start: 10-08-2022 End: 44-34-4854wxqlmoengtMllfcgrrc L ClarkFacility:MCStart: 10-08-2022 End: 45-27-0910nfqxhgeldyUrgttjqyw L ClarkFacility:[facility] PCStart: 05-03-2022 End: 41-95-6602Aeuewwa encounter procedureRitu Desai [phone]-ZmiohSumma Health Primary Care Start: 10-19-2021 End: 68-35-9124mdpixhiyubPI SANTOSH FAZIOFacility:X4Phkzw: 10-17-2021 End: 81-29-4375aqmzddznguFJ SANTOSH FAZIOFacility:J3Vfwat: 99-44-9904rhlonjeqsjII SANTOSH FAZIOFacility:J2Xmtor: 07-13-2021 End: 93-86-1458onivypvveqRE DOCTOR MISCFacility:G8Gpjsf: 05-06-2021 End: 52-09-7049pokxagzxdcVB ERASMO KARASIKFacility:N4Lftmo: 02-24-2021 End: 71-08-8748khpyeapzqzPE SANTOSH FAZIOFacility:R6Ormsv: 01-13-2021 End: 76-37-7524qegujtwibmDK SANTOSH FAZIOFacility:I6Rydcj: 12-09-2020 End: 92-74-0806xtofppgfxkQB SANTOSH FAZIOFacility:E8Hkncs: 12-02-2020 End: 29-86-1717ozxtltslylMZ SANTOSH FAZIOFacility:H1 Procedures DateProcedureProcedure DetailPerforming ClinicianStart: 84-58-5153Fozxe dip stick/tablet rgnt non-auto w/o micrscpCorey Joanna DO Work Phone: Start: 14-24-0952Yaevo dip stick/tablet rgnt non-auto w/o micrscpAmy Brea HAYS Work Phone: Start: 93-02-3987Wnuow dip stick/tablet rgnt non-auto w/o micrscpCorey Joanna DO Work Phone: Start: 91-35-2679NLEKRKY TOLERANCE 3 HOURAmy Brea HAYS Work Phone: Start: 84-87-8272GZL CBC WITH AUTO DIFFAmy Brea HAYS Work Phone: Start: 05-67-2772Wisae dip stick/tablet rgnt non-auto w/o micrscpAmy Brea HAYS Work Phone: Start: 94-35-8942Afemn dip stick/tablet rgnt non-auto w/o micrscpCorey Joanna DO Work Phone: Start: 96-02-9117OEW THYROID STIM HORMONECorey Joanna DO Work Phone: Start: 43-63-9082VFU, SERUM, OPEN SPINA BIFIDAAsusanne HAYS Work Phone: Start: 14-04-9016Xrrla dip stick/tablet rgnt non-auto w/o micrscpCorey Joanna DO Work Phone: Start: 51-05-7393IYNVIKA 1 HOURCorey Joanna DO Work Phone: Start: 36-95-3374SZD MISCELLANEOUS TESTCorey Joanna DO Work Phone: Start: 45-21-9364VQN MISCELLANEOUS TESTCorey Joanna DO Work Phone: Start: 18-44-5451Nunedphabarry Campos MD Work Phone: Start: 90-58-6311NSI W Auto Differential panel - Blood Santosh R Joanna DO Work Phone: Start: 99-96-8450Itpk scrn 1+ class nonchromoNot In System Ref ProvStart: 31-11-4082Vepeztrqpk glycosylated r6eJcbqg R Joanna DO Work Phone: Start: 41-13-4130Xndvvemzz c antibodyNot In System Ref ProvStart: 16-16-1507IGD 1&2 AB/AG SCREEN (P24 AG)Not In System Ref ProvStart: 45-88-4551Oher ia hepatitis b surface antigenNot In System Ref ProvStart: 69-40-0810HRYMLTRD TOTAL(UNKNOWN SYPHILIS STATUS)Not In System Ref ProvStart: 62-32-3772ELJK AND SCREENNot In System Ref ProvStart: 83-10-4723UFA CBC WITH AUTO DIFFCorey JoannaPresidio Pharmaceuticals Work Phone: Start: 08-17-2024 End: 85-78-6311Ancnu dip stick/tablet rgnt non-auto w/o micrscpCorey JoannaPresidio Pharmaceuticals Work Phone: Start: 98-51-3775KDQ,APTIMA HPV,AGE GDLNCorey JoannaPresidio Pharmaceuticals Work Phone: Start: 42-36-9696Zsbre depression screening assessment Jacklyn Campos MD Work Phone: None (qualifier value)Ritu Desai Plan of Treatment DateCare ActivityDetailAuthorStart: 25-20-8736TRmM,Tdap and Td Vaccines (8 - Td or Tdap)DTaP,Tdap and Td Vaccines (8 - Td or Tdap)[facility] HamiltonSwarmforce SystemStart: 11-06-2025 End: 60-66-3297DR MFM with or without consultUS MFM with or without consult Imaging Routine 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 trimester History of prior with IUGR History of premature rupture of membranes Expected: 11/06/2025 (Approximate), Expires: 11/06/2025[facility] Work Phone: comment on above:Expected: 11/06/2025 (Approximate), Expires: 11/06/2025Start: 29-30-7897Empkb BMI ScreeningAdult BMI Screening [facility] SystemStart: 55-22-6979Cqalsyy ScreeningTobacco Screening [facility] SystemStart: 02-13-2025 End: 28-29-6658Gwrhfah encounter dcoumnqpg09/26/2025 10:50 AM EST Routine [facility] [address] [id number] Santosh Marshall DO [address] [place] [address] [facility] [place] [facility]BGYNStart: 02-04-2025 End: 34-82-2625Bhhxirmmjyqy / ancillary services caifpglwwp33/17/2025 8:00 AM EST Ancillary Procedure [facility] [address] [place] [address] [facility] [place] [facility]BGYNStart: 01-28-2025 End: 13-89-9089GI biophysical profile w non stress testUS biophysical profile w non stress test Imaging Routine Thyroid disease History of prior with IUGR Hypothyroidism, unspecified type Expected: 01/28/2025 (Approximate), Expires: 07/28/2025[facility] Work Phone: comment on above:Expected: 01/28/2025 (Approximate), Expires: 07/28/2025Start: 01-28-2025 End: 84-04-8368JV for pregnancyUS OB follow up transabdominal approach Imaging Routine Thyroid disease History of prior with IUGR Hypothyroidism, unspecified type Expected: 01/28/2025, Expires: 05/28/2025NOMS HealthcareComment on above:Expected: 01/28/2025, Expires: 05/28/2025Start: 01-28-2025 End: 37-05-2172Mhrwamt encounter flgeegwve76/10/2025 8:30 AM EST Routine [facility] [address] [place], [id number] Santosh Marshall, DO [address] [place] [address] ArrivedNOMS [place] OBGYNComment on above:ArrivedStart: 01-14-2025 End: 39-07-2820Jbkgfva encounter procedureNOMS Augustina OBGYNComment on above: ArrivedStart: 01-01-2025 End: 42-49-8238Yrbmdgj encounter procedureNOMS BCP OBStart: 12-31-2024 End: 06-43-4568Rgojrwa encounter afbwxtvxd19/13/2025 11:00 AM EDT Routine [facility] [address] [place] [address] Santosh Marshall, DO [address] [place] [address] [facility] [place] [facility]BGYNStart: 12-31-2024 End: 42-13-1315Yeprauhgqqmj / ancillary services snobqvqxdg79/13/2025 10:30 AM EDT Ancillary Procedure [facility] [address] [place] [address] [phone] [facility]BGYNStart: 12-17-2024 End: 55-74-5685Knyatlh encounter /29/2025 3:00 PM EDT Office Visit [facility] [address] [place] [address] Santosh Marshall, [address] [place] [address] NOMS BCP OBStart: 12-11-2024 End: 91-86-9388Cksnble encounter ewpqnhqqs90/23/2025 2:15 PM EDT Appointment [facility] - Ultrasound [address] [place] [address] [phone] Memorial Hospital - UltrasoundStart: 12-10-2024 End: 74-69-2503GJR panel - Blood by Automated countCBC Lab Routine Diabetes mellitus screening Expected: 12/10/2024 (Approximate), Expires: 12/10/2025[facility] Work Phone: comment on above:Expected: 12/10/2024 (Approximate), Expires: 12/10/2025Start: 12-10-2024 End: 87-58-4888Kmqfimtpufe of glucose 1 hour after glucose challenge for glucose tolerance testGlucose tolerance, 1 hour Lab Routine Diabetes mellitus screening Expected: 12/10/2024 (Approximate), Expires: 12/10/2025[facility] HealthcareComment on above:Expected: 12/10/2024 (Approximate), Expires: 12/10/2025Start: 12-10-2024 End: 44-44-0651DP for pregnancyUS OB follow up transabdominal approach Imaging Routine Size of fetus inconsistent with dates in second trimester ([facility]) Expected: 12/10/2024, Expires: 04/11/2025[facility] HealthcareComment on above: Expected: 12/10/2024, Expires: 04/11/2025Start: 12-10-2024 End: 02-00-1510Mxjtcvf encounter procedureNOMS [place] OBGYNComment on above: ArrivedStart: 11-27-2024 End: 19-47-9074Pinkeqr encounter izacamoiw78/09/2025 3:15 PM EDT Appointment [facility] - Ultrasound [address] [place] [address] [phone] Hospital - UltrasoundStart: 11-20-2024 End: 69-79-3691Cmfrohi encounter zboqtnjqx82/02/2025 3:45 PM EDT Appointment [facility] [address] [place] [address] [phone] Hospital [facility] US ImagingStart: 11-19-2024 Influenza vaccinationInfluenza VaccineNovant Health Kernersville Medical Centertart: 11-12-2024 End: 68-64-8115Rresans encounter procedureUMESH [place] OBGYNComment on above: ArrivedStart: 11-05-2024 End: 80-00-3584Iodpnty encounter procedureBarberton Citizens Hospital US ImagingStart: 10-21-2024 End: 33-83-2315TU MFM with or without consultUS [facility] with or without consult Imaging Routine Thyroid disease affecting History of priorpregnancy with IUGR Expected: 10/21/2024 (Approximate), Expires: 09/20/2025 [facility] Work Phone: comment on above:Expected: 10/21/2024 (Approximate), Expires: 09/20/2025Start: 10-15-2024 End: 81-03-8486Fmiyo fetoprotein, maternalAlpha fetoprotein, maternal Lab Routine 17 weeks gestation of ([facility]) Expected: 10/15/2024 (Approximate), Expires: 12/16/2024[facility] Work Phone: comment on above:Expected: 10/15/2024 (Approximate), Expires: 12/16/2024Start: 10-15-2024 End: 73-88-8100Sxadqht encounter procedureNOMS CASSANDRA OBComment on above:Arrived Start: 09-17-2024 End: 91-24-7301Udohpjivwbf of glucose 1 hour after glucose challenge for glucose tolerance testGlucose tolerance, 1 hour Lab Routine Diabetes mellitus screening Expected: 09/17/2024 (Approximate), Expires: 09/17/2025[facility] Work Phone: comment on above:Expected: 09/17/2024 (Approximate), Expires: 09/17/2025Start: 09-17-2024 End: 82-38-9065Zlrgjlp encounter tqwhixxgn13/30/2025 10:50 AM EDT Routine [facility] [address] [place] [address] Santosh Marshall, DO [address] [place] [address] NOMS BCP OBStart: 08-17-2024 End: 28-16-3733JDV/RhABO/Rh Lab Routine Missed menses , unspecified gestational age Expected: 08/17/2024 (Approximate), Expires: 08/17/2025[facility] HealthcareComment on above:Expected: 08/17/2024 (Approximate), Expires: 08/17/2025Start: 08-17-2024 End: 09-97-7635Tgyql type and Indirect antibody screen panel - BloodType and screen Lab Routine Missed menses , unspecified gestational age Expected: 08/17/2024 (Approximate), Expires: 08/17/2025[facility] HealthcareComment on above:Expected: 08/17/2024 (Approximate), Expires: 08/17/2025Start: 08-17-2024 End: 29-96-5462Jbsmc of abuse panel - Urine by Screen methodRapid drug screen, urine Lab Routine , unspecified gestational age Encounter for supervision of normal first in first trimester Expected: 08/17/2024 (Approximate), Expires: 08/17/2025[facility] HealthcareComment on above:Expected: 08/17/2024 (Approximate), Expires: 08/17/2025Start: 08-09-2024 End: 11-14-0431DC Pelvis transvaginalUS OB transvaginal Imaging Routine Missed menses Expected: 08/09/2024, Expires: 11/09/2024[facility] Work Phone: comment on above:Expected: 08/09/2024, Expires: 11/09/2024Start: 39-92-0622AJNSF-19 ( season)COVID-19 ( season)[facility]: 49-55-6651WVY (#1)FLU (#1)[facility]: 63-91-9868Xztvgbqnep ScreeningDepression Screening [facility] SystemStart: 32-77-4224imghxupnivEqntnjgkuuIqazfxdo:Q8Frhop: 74-71-2420Qeuyxnhyorh observation [Identifier] in Cervix by Cyto stainPap Smear [facility]: 78-96-7215Iepznencu for malignant neoplasm of cervixPap SmearNovant Health [facility]: 92-62-4848Cfnkhgjhr B (1 of 3 - 19+ 3-dose series)Hepatitis B (1 of 3 - 19+ 3-dose series)[facility] Start: 87-90-5396Ivskg BMI ScreeningAdult [facility]eningThe [facility] Start: 67-89-3266KkuW (1 of 2 - MenB 2-Dose Series Bexsero)MenB (1 of 2 - MenB 2-Dose Series Bexsero)[facility]: 54-03-7851YFN (1 - 3-dose series)HPV (1 - 3-dose series)[facility]: 2011 Varicella (1 of 2 - 13+ 2-dose series)Varicella (1 of 2 - 13+ 2-dose series) [facility]: 47-24-0018Qdcqphu ScreeningTobacco Screening [facility]: 92-19-2783Ssnfsac Diphtheria and Pertussis Vaccines (1 - Tdap)Tetanus Diphtheria and Pertussis Vaccines (1 - Tdap)[facility]: 73-59-7734IGJ (1 of 1 - Standard series)MMR (1 of 1 - Standard series)[facility] identified [facility] U[facility] by Culture Urine culture Microbiology Routine Missed menses Ordered: 08/17/2024[facility] HealthcareComment on above:Ordered: 08/17/2024BC W Auto Differential panel - BloodCBC and differential Lab Routine Missed menses , unspecified gestational age Ordered: 08/17/2024[facility] HealthcareComment on above:Ordered: 08/17/2024HLAMYDIA TRACHOMATIS (GENITO/STI)CHLAMYDIA TRACHOMATIS (GENITO/STI) Lab Routine STD exposure Ordered: 11/12/2024[facility] HealthcareComment on above: Ordered: 11/12/2024ytology Cervical or vaginal smear or scraping studyPap Smear Pathology and Cytology Routine Well woman exam with routine gynecological exam Ordered: 12/12/2023[facility] Healthcare Work Phone: comment on above:Ordered: 12/12/2023 End: 36-53-6691QAQ Extraction and [facility] Work Phone: Comment on above:1 Occurrences starting 05/14/2024 until 05/14/2024, 1 completedHemoglobin A1c/Hemoglobin.total in BloodHemoglobin A1c Lab Routine Missed menses , unspecified gestational age Ordered: 08/17/2024[facility] HealthcareComment on above:Ordered: 08/17/2024Hepatitis B virus surface Ag [Presence] in Serum or Plasma by ImmunoassayHepatitis B surface antigen Lab Routine Missed menses , unspecified gestational age Ordered : 08/17/2024[facility] HealthcareComment on above:Ordered: 08/17/2024Hepatitis C virus Ab [Presence] in Serum or Plasma by ImmunoassayHepatitis C antibody Lab Routine Missed menses , unspecified gestational age Ordered: 08/17/2024[facility] HealthcareComment on above:Ordered: 08/17/2024HIV-1/HIV-2 antigen/antibody combination immunoassayHIV-1 and HIV-2 antibodies Lab Routine Missed menses , unspecified gestational age Ordered: 08/17/2024[facility] HealthcareComment on above:Ordered: 08/17/2024Neisseria gonorrhoeae DNA [Presence] in Unspecified specimen by FRANSISCO with probe detectionNeisseria gonorrhea DNA probe, direct Lab Routine STD exposure Ordered: 11/12/2024[facility] HealthcareComment on above:Ordered: 11/12/2024Reagin Ab [Presence] in Serum by RPRRPR Lab Routine Missed menses , unspecified gestational age Ordered: 08/17/2024[facility] HealthcareComment on above:Ordered: 08/17/2024Rubella antibody, IgGRubella antibody, IgG Lab Routine Missed menses , unspecified gestational age Ordered: 08/17/2024 [facility] HealthcareComment on above:Ordered: 08/17/2024SURESWAB(R) ADVANCED VAGINITIS PLUS, TMASURESWAB(R) ADVANCED VAGINITIS PLUS, TMA Pathology and Cytology Routine Vaginal discharge Ordered: 11/12/2024[facility] Healthcare Work Phone: comment on above:Ordered: 11/12/2024Thyrotropin [Units/volume] in Serum or PlasmaTSH Lab Routine Missed menses , unspecified gestational age Encounter for supervision of normal first in first trimester Ordered: 08/17/2024[facility] HealthcareComment on above:Ordered: 08/17/2024 End: 11-17-9368Icakfqcczbu [Units/volume] in Serum or PlasmaTSH Lab Routine Hypothyroidism, unspecified type 9 Occurrences starting 11/12/2024 until 11/12/2025[facility] Healthcare Work Phone: comment on above:9 Occurrences starting 11/12/2024 until 11/12/2025US Pelvis transvaginalUS OB transvaginal Imaging Routine Missed menses 08/17/2024 9:27 AM [facility] Immunizations Immunization DateImmunizationNotesCare VpdshaoyShdriadt43-57-5830xxwaevg toxoid, reduced diphtheria toxoid, and acellular pertussis vaccine, adsorbedNancyzabemonty Thornton [phone]-CwbkdWilson [facility]08-02-2016 meningococcal B vaccine, fully recombinantNancyzabeth Norberto [phone]-GwayfWilson [facility]06-27-2016 meningococcal ACWY vaccine, unspecified formulationNancyzabemonty Thornton [phone]-AnegxWilson [facility]06-27-2016 meningococcal B vaccine, fully recombinantNancyzabeth Norberto [phone]-VcgkqWilson [facility]04-04-2011 meningococcal ACWY vaccine, unspecified formulationNancyzabeth Norberto [phone]-AjnteWilson Street [facility]04-04-2011 tetanus toxoid, reduced diphtheria toxoid, and acellular pertussis vaccine, adsorbedElizabeth Norberto [phone]-NraroWilson Street Hospital11-12-2009 influenza virus vaccine, unspecified formulationJacklyn Campos MD Work Phone: [phone] [place], [place] 8327407-28-2004DTaP, unspecified formulationElizabeth Norberto [phone]-EeuizWilson Street Hospital07-28-2004 measles, mumps and rubella virus vaccineElizadaniel Thornton [phone]-VjewsWilson Street Hospital07-28-2004 poliovirus vaccine, unspecified formulationElisampson Thornton [phone]-Czzht[address] [place], [place] 5440111-15-2000DTaP, unspecified formulationElizadaniel Thornton [phone]-Lyilf[address] [place], [place] 5440111-08-1999 measles, mumps and rubella virus vaccineElizabemonty Thornton [phone]-Jfdqz[address] [place], [place] 5440111-08-1999 varicella virus vaccineElizadaniel Thornton [phone]-Wzceo[address] [place], [place] 5440107-23-1999DTaP, unspecified formulationElisampson Thornton [phone]-Uyhpr[address] [place] [address] Primary Bixr04-81-6592AZgH, unspecified formulationElizadaniel Thornton [phone]-Pngve[address] [place] [address] Primary Vxgn61-90-1623SUeK, unspecified formulationYa Thornton [phone]-Mbvfl[address] [place], [place] 5440110-31-1998 hepatitis B vaccine, pediatric or pediatric/adolescent dosageElizadaniel Thornton [phone]-NwbpgSumma Health Primary CareNEGATED: Highlighted row has not occurred!38-81-4212pbnrmwsnu virus vaccine, unspecified formulationDaniel Gray [phone]-XddnuSumma Health Digestive HealthNEGATED: Highlighted row has not occurred!95-63-7467qxvwcqxdg virus vaccine, unspecified formulationRitu Desai [phone]-UbktfSumma Health Primary Care Payers DatePayer CategoryPayerPolicy [id number] [facility] [id number] - [id number] [id number] Health [id number] 2023Medicaid [facility] MEDICAID [id number] Care Other (unspecified)[place] [address] [id number] 2.840.1.050980.3.57[id number] 2.160.1.252636.3.57[id number] 2.0.1.183282.3.57[id number] 2.840.1.879837.3.57[id number] 2.840.1.661928.3.579.[id number] 2.0.1.159207.3.579.2.08458-52-5311Oclwqwh6802770 2.0.1.805251.3.57[id number] 2.840.1.607076.3.57[id number] 2.840.1.599566.3.57[id number] 2.840.1.808176.3.57[id number] 2.16840.1.276221.3.57[id number] 2.840.1.291949.3.579.2.4[id number] 2.16840.1.050199.3.57[id number] 2.16840.1.865482.3.579.2.92592-19-1458Ucyglwl48789597 2.16840.1.110322.3.579.2.97296-32-6922Lzywiqy82398565 2.16840.1.814165.3.57[id number] 2.16840.1.567983.3.579.2.17206-73-8905Mqabmqk87590581 2..1.516686.3.57[id number] 2.840.1.495883.3.579.2.52161-27-7408Xnhgsrq80510951 2.840.1.587444.3.579.2.47578-14-3605Otdznfz91033459 2.840.1.322842.3.579.2.48709-61-9854Cqzhkdb86713899 2..1.889195.3.579.2.11263-60-5662Wzzrcrf95148087 2.16840.1.000425.3.579.2.84868-54-2229Xgnzber62962083 2.16840.1.167113.3.579.2.99439-88-7021Ebmchye40549625 2.16840.1.287556.3.579.[id number] 2.840.1.051415.3.579.2.55401-30-6165Lbadgig285906074 2.16.840.1.706109.3.579.2.27334-98-7219Wxchxoj25329385 2.16.840.1.123515.3.579.2.76264-77-7983Qdqturf07134649 2.16.840.1.226599.3.579.2.10432-97-5097Vudlxkl06098431 2.16.840.1.108370.3.579.2.57475-31-1358Yoyomtm86563812 2.16.840.1.103726.3.579.2.83403-99-5926Xrpylot00139563 2.16.840.1.363992.3.579.2.54252-02-8694Nqvfkrc68030536 2.16.840.1.046116.3.579.2.71909-62-6944Acfbcyh07783690 2.16.840.1.404660.3.579.2.75390-50-8308Pznkelx398795140 2.16840.1.371306.3.579.2.326865-10-3477Bitnovy358429240 2.16.840.1.978026.3.579.2.620510-20-2795Wdblyco729429378 2.16.840.1.975567.3.579.2.106244-79-4443Dniezfs917409373 2.16.840.1.949758.3.579.2.054323-08-0574Mrevmvn412137447 2.16.840.1.017865.3.579.2.714327-83-6494Abownqa75667325 2.16.840.1.913899.3.579.2.441165-43-1744Cqirirq19779615 2.16.840.1.388534.3.579.2.732803-08-3766Hbbflkw39096908 2.16.840.1.906035.3.579.2.767550-00-2181Qgwsdwx50973039 2.16.840.1.174078.3.579.2.264196-33-1809Xnzqqsn86831950 2.16.840.1.107645.3.579.2.131204-75-4335Agincmt59058766 2.16.840.1.568948.3.579.2.735945-12-8610Ywfrfzc88356785 2.16.840.1.495713.3.579.2.644785-34-7645Yzwaofs19575866 2.16.840.1.188325.3.579.2.674761-20-3994Ggtppij2635656 2.16.840.1.450640.3.579.2.868271-27-6569Jcixmpx8308180 2.16.840.1.835564.3.579.2.683443-02-4100Esfr-vkh08-86-6933Dpaujqh353554129928 85-74-8921Jjjszrq10769334714843505Dofgqbp6911416866955-75-7948Djswydy6174361825Fpdwlwj3749289 2.0.1.064702.3.579.2.287Pycqdbm558569394108 Social History DateTypeDetailFacilityStart: 05-03-2022 End: 88-51-2855Lpbqdzm smoking statusNever smoked tobacco (finding)[facility] Primary CareStart: 92-27-5066Cbdordr smoking statusNeverOhiohealth [facility] Primary CareStart: 07-12-2023 End: 72-99-7522Avs Assigned At BirthFeMercy Memorial Hospitaltart: 12-12-2023 End: 70-00-1151Chlutzxit beverage intakeCurrent drinker of alcohol (finding)[facility] HospitalStart: 07-12-2023 End: 67-05-2811Rkaywkc of Social functionNOMS HealthcareStart: 80-74-1155Sdeyvbm Commentoccasional alcohol useNOMS HealthcareStart: 31-47-9424Lke assigned at birthNot on fileHarry S. Truman Memorial Veterans' HospitalTobacco smoking status NHISTobacco smoking consumption unknownParkview Healthexual OrientationBluffton Hospital Start: 07-02-2009 End: 13-13-8134XoxQewjxg (finding)[facility] Hospitaltart: 06-30-2024 PregnancyNOMS HealthcareStart: 24-22-8584Dxttwxa use and exposureSmokeless tobacco non-userMercy Health St. [facility] SystemStart: 09-24-2024 End: 29-05-8141Hlcgsnxyy beverage intakeEx-drinker (finding)[facility] SystemThe thought of harming myself has occurred to [facility] Medical Equipment Procedure CodeEquipment CodeEquipment Original TextEquipment IdentifierDates Glucose Test Strips, See Instructions, 1 EA, 3, Glucose Test Strips, [facility], Supply, 166, cm, 10/08/22 15:10:00 EDT, Height/Length Dosing, 57.8, kg, 10/08/22 15:10:00 EDT, Weight DosingStart: 62-64-5243Iqgeoxk, See Instructions, 100 lancet(s), 3, Lancets, [facility] [employer] [facility], Supply, 166, cm, 10/08/22 15:10:00 EDT, Height/Length Dosing, 57.8, kg, 10/08/22 15:10:00 EDT, Weight DosingStart: 73-68-4270Xoqrdvf Test Strips, See Instructions, 1 EA, 3, Glucose Test Strips, [facility], Supply, 166, cm, 10/08/22 15:10:00 EDT, Height/Length Dosing, 57.8, kg, 10/08/22 15:10:00 EDT, Weight DosingStart: 43-31-4812Bhbevjq, See Instructions, 100 lancet(s), 3, Lancets, DiscMedication [facility], Supply, 166, cm, 10/08/22 15:10:00 EDT, Height/Length Dosing, 57.8, kg, 10/08/22 15:10:00 EDT, Weight DosingStart: 38-43-0091Pmctkno Test Strips, See Instructions, 1 EA, 3, Glucose Test Strips, DiscMedication [facility], Supply, 166, cm, 10/08/22 15:10:00 EDT, Height/Length Dosing, 57.8, kg, 10/08/22 15:10:00 EDT, Weight DosingStart: 92-13-3905Dsojxyt, See Instructions, 100 lancet(s), 3, Lancets, [facility] [employer] [facility], Supply, 166, cm, 10/08/22 15:10:00 EDT, Height/Length Dosing, 57.8, kg, 10/08/22 15:10:00 EDT, Weight DosingStart: 95-67-6048Zzpxkzc Test Strips, See Instructions, 1 EA, 3, Glucose Test Strips, DiscMedication [facility], Supply, 166, cm, 10/08/22 15:10:00 EDT, Height/Length Dosing, 57.8, kg, 10/08/22 15:10:00 EDT, Weight DosingStart: 70-81-5100Uigdqbv, See Instructions, 100 lancet(s), 3, Lancets, [facility] [employer] [facility] #[facility], Supply, 166, cm, 10/08/22 15:10:00 EDT, Height/Length Dosing, 57.8, kg, 10/08/22 15:10:00 EDT, Weight DosingStart: 77-67-7889Gilrsrv Test Strips, See Instructions, 1 EA, 3, Glucose Test Strips, DiscMedication [facility], Supply, 166, cm, 10/08/22 15:10:00 EDT, Height/Length Dosing, 57.8, kg, 10/08/22 15:10:00 EDT, Weight DosingStart: 22-60-0680Iesqfpy, See Instructions, 100 lancet(s), 3, Lancets, [facility] [employer] [facility], Supply, 166, cm, 10/08/22 15:10:00 EDT, Height/Length Dosing, 57.8, kg, 10/08/22 15:10:00 EDT, Weight DosingStart: 72-27-4301Fbdwyra Test Strips, See Instructions, 1 EA, 3, Glucose Test Strips, [facility], Supply, 166, cm, 10/08/22 15:10:00 EDT, Height/Length Dosing, 57.8, kg, 10/08/22 15:10:00 EDT, Weight DosingStart: 63-84-6453Nsluooh, See Instructions, 100 lancet(s), 3, Lancets, [facility], Supply, 166, cm, 10/08/22 15:10:00 EDT, Height/Length Dosing, 57.8, kg, 10/08/22 15:10:00 EDT, Weight DosingStart: 25-19-4084Bocolya Test Strips, See Instructions, 1 EA, 3, Glucose Test Strips, [facility] #[facility], Supply, 166, cm, 10/08/22 15:10:00 EDT, Height/Length Dosing, 57.8, kg, 10/08/22 15:10:00 EDT, Weight DosingStart: 55-06-2249Vkgryrl, See Instructions, 100 lancet(s), 3, Lancets, [facility], Supply, 166, cm, 10/08/22 15:10:00 EDT, Height/Length Dosing, 57.8, kg, 10/08/22 15:10:00 EDT, Weight DosingStart: 83-48-7238Hhxfmvl Test Strips, See Instructions, 1 EA, 3, Glucose Test Strips, DiscMedication [facility] [employer] [facility], Supply, 166, cm, 10/08/22 15:10:00 EDT, Height/Length Dosing, 57.8, kg, 10/08/22 15:10:00 EDT, Weight DosingStart: 49-76-8374Fxbiopb, See Instructions, 100 lancet(s), 3, Lancets, [facility] #[facility], Supply, 166, cm, 10/08/22 15:10:00 EDT, Height/Length Dosing, 57.8, kg, 10/08/22 15:10:00 EDT, Weight DosingStart: 83-54-1174Rsmzodj Test Strips, See Instructions, 1 EA, 3, Glucose Test Strips, [employer] #37, Supply, 166, cm, 10/08/22 15:10:00 EDT, Height/Length Dosing, 57.8, kg, 10/08/22 15:10:00 EDT, Weight DosingStart: 24-42-6046Sfsvbxf, See Instructions, 100 lancet(s), 3, Lancets, [facility] #37, Supply, 166, cm, 10/08/22 15:10:00 EDT, Height/Length Dosing, 57.8, kg, 10/08/22 15:10:00 EDT, Weight DosingStart: 54-38-1729Ibcfrwq Test Strips, See Instructions, 1 EA, 3, Glucose Test Strips, [facility] #37, Supply, 166, cm, 10/08/22 15:10:00 EDT, Height/Length Dosing, 57.8, kg, 10/08/22 15:10:00 EDT, Weight DosingStart: 83-77-6645Zwlxipr, See Instructions, 100 lancet(s), 3, Lancets, [facility] #37, Supply, 166, cm, 10/08/22 15:10:00 EDT, Height/Length Dosing, 57.8, kg, 10/08/22 15:10:00 EDT, Weight DosingStart: 51-80-6768Sjzxgsp Test Strips, See Instructions, 1 EA, 3, Glucose Test Strips, [facility] #[facility], Supply, 166, cm, 10/08/22 15:10:00 EDT, Height/Length Dosing, 57.8, kg, 10/08/22 15:10:00 EDT, Weight DosingStart: 98-24-5548Xowhjgu, See Instructions, 100 lancet(s), 3, Lancets, [facility] #37, Supply, 166, cm, 10/08/22 15:10:00 EDT, Height/Length Dosing, 57.8, kg, 10/08/22 15:10:00 EDT, Weight DosingStart: 22-21-3387Hjhypav Test Strips, See Instructions, 1 EA, 3, Glucose Test Strips, [facility] #37, Supply, 166, cm, 10/08/22 15:10:00 EDT, Height/Length Dosing, 57.8, kg, 10/08/22 15:10:00 EDT, Weight DosingStart: 25-10-3276Mrattfb, See Instructions, 100 lancet(s), 3, Lancets, [employer] #37, Supply, 166, cm, 10/08/22 15:10:00 EDT, Height/Length Dosing, 57.8, kg, 10/08/22 15:10:00 EDT, Weight DosingStart: 37-94-2232Ypt daily as directed & as neededStart: 03-26-2021 Functional Status LnolGpkgrhurqgAxmvfsKsbkodkd70-57-5498Lxltytunhs StatusN/[facility] Primary Bflt01-83-1970Gyknakfrrb StatusN/[facility] Primary Xgkk53-60-6002Zagrmoadar StatusN/[facility] Primary Awct35-70-6698Hwnmemrwha StatusN/[facility] Digestive Health 49-83-1063Noumscfwzi StatusN/[facility] Primary Ftnt70-44-5332 Functional StatusN/[facility] Clinical Notes 05-03-2022 to 01-28-2025 Note Date & HwyqOnysOdriejbg70-48-6898 History of Present illness Narrative* Abril Stone [...] nursing note reviewed. Exam conducted with a jig boring machine set up operator present. Vitals: Estimated body mass index is 26.29 kg/m as calculated from the following: Height as of 11/29/22: 5' 5 . Weight as of this encounter: 158 lb. BP: 124/70 Patient's last menstrual period was 06/16/2024. Assessment/Plan ICD-10-CM 1. Third trimester ([facility]) Z34.93 POCT urinalysis dipstick manually resulted 2. 32 weeks gestation of ([facility]) Z3A.32 3. Thyroid disease E07.9 4. History [...] of: Santosh Marshall DO documented in this encounterHarry S. Truman Memorial Veterans' HospitalYzzhmllspb54-80-6555 History of Present illness Narrative* Abril Stone [...] nursing note reviewed. Exam conducted with a jig boring machine set up operator present. Vitals: Estimated body mass index is 26.71 kg/m as calculated from the following: Height as of 23: 5' 5 . Weight as of this encounter: 160 lb 8 oz. BP: 126/72 Patient's last menstrual period was 06/16/2024. Assessment/Plan ICD-10-CM 1. Third trimester ([facility]) Z34.93 POCT urinalysis dipstick manually resulted 2. 30 weeks gestation of ([facility]) Z3A.30 Return OB: Patient presents today [...] of: Santosh Marshall DO documented in this encounterHarry S. Truman Memorial Veterans' HospitalHnmwalapju84-51-3250 History of Present illness Narrative* Daiana Villarreal [...] nursing note reviewed. Exam conducted with a jig boring machine set up operator present. Vitals: Estimated body mass index is 25.38 kg/m as calculated from the following: Height as of 11/29/22: 5' 5 . Weight as of this encounter: 152 lb 8 oz. BP: 106/68 Patient's last menstrual period was 06/16/2024. ASSESSMENT & PLAN ICD-10-CM 1. Third trimester ([facility]) Z34.93 POCT urinalysis dipstick manually resulted 2. 28 weeks gestation of ([facility]) Z3A.28 Patient presents today for a routine obstetrics appointment. Patient is currently 28w2d with a Estimated Date of Delivery: 03/23/25. Patient had growth scan done prior to today's appointment. Patient will start NST/BPP at 32 weeks. Patient to return to clinic in 2 weeks. Documented by Daiana Villarreal LPN on behalf of: Santosh Marshall DO documented in this encounterHarry S. Truman Memorial Veterans' HospitalXizpvnacsp29-42-0346 History of Present illness Narrative* LIS Man [...] ASSESSMENT & PLAN ICD-10-CM 1. Second trimester ([facility]) Z34.92 POCT urinalysis dipstick manually resulted 2. 25 weeks gestation of ([facility]) Z3A.25 3. Diabetes mellitus screening Z13.1 CBC [...] of: LIS Man documented in this encounterNOMS Rkwkyocaqd14-90-5304 History of Present illness Narrative* Abril Stone, [...] nursing note reviewed. Exam conducted with a jig boring machine set up operator present. Vitals: Estimated body mass index is 23.15 kg/m as calculated from the following: Height as of 11/29/22: 5' 5 . Weight as of this encounter: 139 lb 1.9 oz. BP: 110/72 Patient's last menstrual period was 06/16/2024. ASSESSMENT & PLAN ICD-10-CM 1. Second trimester ([facility]) Z34.92 POCT urinalysis dipstick manually resulted 2. 21 weeks gestation of ([facility]) Z3A.21 POCT urinalysis dipstick manually resulted 3. [...] weeks; She is followed closely per [facility] with history of hypothyroidism. Will obtain growth ultrasounds every 4 weeks and begin NST/BPP at 32 weeks. Documented by Abril Stone NP on behalf of: Santosh Marshall DO documented in this encounterHarry S. Truman Memorial Veterans' HospitalOcbcxwoxdm30-63-5785 History of Present illness Narrative* Nadira Salazar [...] Have you been seen here at [facility] in a previous ? Recent ER visits or hospitalizations? No Bring blood sugar log or meter with you today? (Please bring them with you for every visit at [facility]) NA Flu vaccine (Jan-May)? NA Any [...] Jacklyn Campos MD, FACOG (she/hers) Maternal- Medicine [facility] [address] [facility] [address] [place] [address] This document was created with [employer] technology. Though I make every effort to review the dictation as it is transcribed, on occasion the spoken word can be misinterpreted by the technology leading to inappropriate words, phrases, or sentences. This note is addressed to the requesting provider as a consultation for clinical guidance. Specificmedical abbreviations are occasionally used and those are generally approved by the [place]?Board of?Obstetrics and?Gynecology?as well as?Lucy campos abbreviations. The above plan of care was based solely on the diagnoses for which a consultation was requested. ?More frequent testing may be indicated based on her other medical/obstetrical conditions. The management of other or medical conditions is beyond the scope of requested consultation and will c ontinue to be followed by the primary strategic partnership manager or primary care provider. Note to patient: [...] of the practitioner. documented in this encounterPremier HealthRollCall (roll.to) Yvlftr68-63-9864 History of Present illness Narrative* LIS Man [...] ASSESSMENT & PLAN ICD-10-CM 1. Second trimester ([facility]) Z34.92 2. 17 weeks gestation of ([facility]) Z3A.17 POCT urinalysis dipstick manually resulted [...] behalf of: LIS Man documented in this encounterHarry S. Truman Memorial Veterans' HospitalTtfnovnlqj61-59-8533 History of Present illness Narrative* Aliya JeronimoKALE [...] nursing note reviewed. Exam conducted with a jig boring machine set up operator present. Vitals: Estimated body mass index is 22.1 kg/m as calculated from the following: Height as of 11/29/22: 5' 5 . Weight as of this encounter: 132 lb 12.8 oz. BP: 112/70 Patient's last menstrual period was 06/16/2024. ASSESSMENT & PLAN ICD-10-CM 1. 13 weeks gestation of ([facility]) Z3A.13 2. Second trimester ([facility]) Z34.92 3. Thyroid disease E07.9 levothyroxine [...] or undercooked meat, and stay away from [facility]. Patient has been consulted regarding any further do's and don'tsof . Patient voiced understanding and all questions and concerns were answered. Pt has h/o IUGR, thyroid disease, pt being referred to [facility] for level II ultrasound. Pt should be taking 125mcg of levothyroxine. Pt voiced understanding. Pt to start baby aspirin. Orders Placed This Encounter Procedures Glucose tolerance, 1 hour Follow Up: Patient is to return in 4 weeks for routine OB appointment. Documented by Aliya Jeronimo LPN on behalf of: Santosh Marshall DO documented in this encounterHarry S. Truman Memorial Veterans' [id number] History of Present illness Narrative* Carmita Tapia, APPRENTICE COOK - 08/17/2024 9:30 AM EDT Reason for [...] or undercooked meat, and stay away from [facility]. Patient has also been advised to not change litter boxes and eat 6 small meals a day. Patient has been consulted regarding the do's and don'ts ofpregnancy. Patient was given labs and all questions and concerns were answered. Patient was sent in Magnesium for headaches. Patient given [place] labs to do with initial labs along [...] by: Carmita Tapia LPN documented in this encounterHarry S. Truman Memorial Veterans' [id number] NotePatient Education Endocrinology Hypothyroidism Hypothyroidism is when [...] Follow these instructions at home: ??? Take [id number] and prescription medicines only as told by [...] Reviewed: 03/09/2022 Elsevier Patient Education ? 2023 [employer] Obstetrics and Gynecology Health Maintenance, Female Adopting a healthy lifestyle and getting preventive care are important in promoting health and wellness. Ask your health care provider about: ??? The right schedule for you to have regular tests and exams. ??? Things (more content not included)...[facility]04-17-2025 NotePatient Education ENT How to [...] cannot use soap and water, use hand veterinary technology instructor. 2. Wash your device using the directions [...] provider. Document Revised: 08/24/2021 Document Reviewed: 08/24/2021 [employer] Patient Education ? 2023 Livevol. Infectious Disease Sinus Infection, Adult A sinus [...] this diagnosed? Your s (more content not included)...[facility]09-23-2024 History of Present illness Narrative* [...] Diagnosis Date BMI 23.0-23.9, adult Thyroid disease ([facility]) Well woman exam HISTORY PAST MEDICAL [...] nursing note reviewed. Exam conducted with a jig boring machine set up operator present. Vitals: Estimated body mass index is [...] of: Santosh Marshall DO documented in [facility] encounter[facility] [id number] Hospital Discharge instructions Patient Education 08/08/2023 16:25:47 [...] to help relieve pain. General instructions Take cpqm-fdq-arxsqva and prescription medicines only as told by [...] by the muscles of the uterus tightening (km) during amenstrual period. Dysmenorrhea may be mild, [...] provider. Document Revised: 10/22/2020 Document Reviewed: 10/22/2020 [employer] Patient Education 2022 Livevol. 08/08/2023 16:25:44 Hemorrhoids Hemorrhoids Hemorrhoids are swollen [...] 3 times a day. General instructions Take tejj-dsl-chieppi and prescription medicines only as told by [...] provider. Document Revised: 09/16/2021 Document Reviewed: 09/16/2021 [employer] Patient Education 2022 Livevol. 08/08/2023 16:25:43 Urinary Tract Infection, Adult Urinary [...] Treatment for this condition includes: Antibiotic medicine. Iklr-ace-tkkezab medicines to treat discomfort. Drinking enough water [...] Follow these instructions at home: Medicines Take dobh-eoi-glwnsrn and prescription medicines only as told by [...] provider. Document Revised: 10/17/2020 Document Reviewed: 10/17/2020 [employer] Patient Education 2022 Livevol. 08/08/2023 16:25:41 Hypothyroidism Hypothyroidism Hypothyroidism is when [...] away. Follow these instructions at home: Take gozf-mnh-nekfaah and prescription medicines only as told by [...] provider. Document Revised: 03/09/2022 Document Reviewed: 03/09/2022 [employer] Patient Education 2022 Livevol. [facility] 05-20-2024 Evaluation + Plan note Future Scheduled Tests Laboratory* UA with Cult Rflx 08/08/23 * CBC w/ Auto Diff 02/08/24 * Comprehensive Metabolic Panel 02/08/24 * Thyroid Stimulating Hormone 02/08/24 * Thyroid Stimulating Hormone 05/16/23 * Free T4 02/08/24 * Free T4 05/16/23 [facility] 12-20-2023 Hospital Discharge instructions Patient [...] including vitamins, herbs, eye drops, creams, and kjes-ien-iwumnrc medicines. ?Whether you are or may be [...] provider. Document Revised: 11/18/2021 Document Reviewed: 10/10/2020 [employer] Patient Education 2022 Livevol. 03/09/2023 08:08:48 Urinary Tract Infection, Adult Urinary [...] Treatment for this condition includes: Antibiotic medicine. Bdek-tdw-mlehpti medicines to treat discomfort. Drinking enough water [...] Follow these instructions at home: Medicines Take msjf-xes-gcauovj and prescription medicines only as told by [...] provider. Document Revised: 10/17/2020 Document Reviewed: 10/17/2020 [employer] Patient Education 2022 Livevol. 03/09/2023 08:08:46 Hypothyroidism Hypothyroidism Hypothyroidism is when [...] away. Follow these instructions at home: Take znzs-nna-apcjqem and prescription medicines only as told by [...] provider. Document Revised: 03/09/2022 Document Reviewed: 03/09/2022 [employer] Patient Education 2022 Livevol. Follow Up Care 03/07/2023 12:06:45 With:Ya Wang FAM, [facility] Address: [address], [address] [place] [phone] Business (1) When:05/25/2023 Comments:for f/u [facility] 12-04-2023 Hospital Discharge instructions Patient [...] Follow these instructions at home: Medicines Take vloa-bpt-acgmcwx and prescription medicines only as told by [...] provider. Document Revised: 10/17/2020 Document Reviewed: 10/17/2020 [employer] Patient Education 2022 Livevol. Follow Up Care 02/21/2023 08:19:47 With:Ya Wang FAM, MED Address: [address] [place], [place] [id number] Business (1) When:05/25/2023 Comments:for f/u [facility] 09-12-2023 Hospital Discharge instructions Patient [...] Bulgur wheat. Millet. Quinoa. Bran muffins. Popcorn. [place] wafer crackers. Meats and other proteins Jasper beans, kidney beans, and díaz beans. Soybeans. [...] Cream cheese. Sour cream. Fats and oils [place]. Beverages Soft drinks. Other foods Cakes and [...] Document Reviewed: 07/10/2020 Elsevier Patient Education 2022 Livevol. Follow Up Care 11/11/2022 12:10:41 With:Daniel Gray CNP Address: When:2 weeks Comments:Following EGD/Colonoscopy. [facility] 08-24-2023 Hospital Discharge instructions Patient [...] per serving. Talk with a diet and forestry extension specialist (dietitian) if you have questions about [...] Bulgur wheat. Millet. Quinoa. Bran muffins. Popcorn. [place] wafer crackers. Meats and other proteins Jasper, kidney, and díaz beans. Soybeans. Split peas. [...] Cream cheese. Sour cream. Fats and oils [place]. Beverages Soft drinks. Other foods Cakes and [...] 03/07/2006 Document Revised: 01/09/2018 Document Reviewed: 01/09/2018 [employer] Patient Education 2020 Livevol. 11/11/2022 01:00:54 Hemorrhoids Hemorrhoids Hemorrhoids are swollen [...] 3 times a day. General instructions Take tkpf-djn-bedvlxd and prescription medicines only as told by [...] provider. Document Revised: 09/16/2021 Document Reviewed: 09/16/2021 [employer] Patient Education 2022 Livevol. Follow Up Care 11/08/2022 14:59:04 With:Ya Wang FAM, [facility] Address: [address] [place] [address] [facility] (1) When:Within 3 Month(s) Comments:3 mo f/u [facility] 02-13-2023 Hospital Discharge instructions Patient [...] away. Follow these instructions at home: Take gtbe-gnx-funtfel and prescription medicines only as told by [...] 03/07/2006 Document Revised: 02/17/2018 Document Reviewed: 02/15/2018 [employer] Patient Education [place]ook. Follow Up Care 04/05/2022 12:35:49 With:Ritu Desai CNP Address: [address] [place] [phone] When:1 year Comments:or sooner if needed. [facility] Evaluation + Plan note No data available for this section [facility] Evaluation + Plan note Future Appointments Appointment Date:11/30/2022 12:00:00 PM Scheduled Provider:Daniel Gray CNP Location:[facility] Appointment Type:BAD New Patient Appointment Date:04/04/2023 01:00:00 PM Scheduled Provider:Ya Wang Location:[facility] Appointment Type: Open Future Scheduled Tests Laboratory* TSH With T4fr Reflex 10/08/22 [facility] Evaluation + Plan note Future Appointments Appointment Date:04/04/2023 01:00:00 PM Scheduled Provider:Ya Wang Location:[facility] Appointment Type:FM Open Future Scheduled Tests Laboratory* TSH With T4fr Reflex 10/08/22 [facility] Evaluation + Plan note Future Appointments Appointment Date:07/25/2023 10:00:00 AM Scheduled Provider:Ya Wang Location:[facility] Appointment Type:FM Open Future Scheduled Tests Laboratory* T3 Free 02/21/23 * Thyroid Stimulating Hormone 02/21/23 * Free T4 02/21/23 [facility] Evaluation + Plan note Future Appointments Appointment Date:07/25/2023 10:00:00 AM Scheduled Provider:Ya Wang Location:[facility] Appointment Type:FM Open Diagnostic Tests Pending * Urine Culture 02/21/23 Future Scheduled Tests Laboratory* T3 Free 02/21/23 * Thyroid Stimulating Hormone 02/21/23 * Free T4 [facility]ments Appointment Date:07/25/2023 10:00:00 AM Scheduled Provider:[facility] Type[facility] Open Future Scheduled Tests Laboratory* T3 Free 02/21/23 * Thyroid Stimulating Hormone 02/21/23 * Free T4 02/21/23 Radiology* US Retroperitoneal Complete 03/09/23 [facility] Evaluation + Plan note Future Appointments Appointment Date:07/25/2023 10:00:00 AM Scheduled Provider:Ya Wang [facility] Type:FM Open Diagnostic Tests Pending * Urine Culture 03/09/23 Future Scheduled Tests Laboratory* T3 Free 02/21/23 * Thyroid Stimulating Hormone 02/21/23 * Free T4 02/21/23 Radiology* US Retroperitoneal Complete 03/09/23 [facility] App[facility]ments Appointment Date:07/12/2023 09:30:00 AM Scheduled Provider:OPAL LUZ PA-C Location:[facility] Appointment Type:URO New Patient Appointment Date:07/25/2023 10:00:00 AM Scheduled Provider:Ya Wang [facility] Type:[facility] Open Diagnostic Tests Pending * T3 Free 03/22/23 [facility] App[facility]ments Appointment Date:07/12/2023 09:30:00 AM Scheduled Provider:OPAL LUZ PA-C Location:[facility] Appointment Type:URO New Patient Appointment Date:07/25/2023 10:00:00 AM Scheduled Provider:Ya Wang [facility] Type[facility] Open [facility] Future Appointments Appointment Date:07/25/2023 10:00:00 AM Scheduled Provider:Ya Wang Location:[facility] Appointment Type:FM Open Future Scheduled Tests Laboratory* Thyroid Stimulating Hormone 05/16/23 * Free T4 05/16/23 [facility] evaluation + Plan note Future Scheduled Tests Laboratory* CBC w/ Auto Diff 02/08/24 * Comprehensive Metabolic Panel 02/08/24 * Thyroid Stimulating Hormone 02/08/24 * Free T4 02/08/24 [facility] Appointments Appointment Date:07/09/2024 08:00:00 AM Scheduled Provider:Marta Rivas Location:[facility] Appointment Type:FM New Patient - Adult Future Scheduled Tests Laboratory* CBC w/ Auto Diff 02/08/24 * Comprehensive Metabolic Panel 02/08/24 * Thyroid Stimulating Hormone 02/08/24 * Free T4 02/08/24 [facility] Evaluation note* Diagnosis Well woman exam with routine gynecological exam Routine gynecological examination documented [facility] this encounter [facility] Diagnosis Family history of autism Family history of psychiatric condition [facility] Diagnosis Missed menses , unspecified gestational age Encounter for supervision of normal first in first trimester Nonintractable headache, unspecified chronicity pattern, unspecified headache type documented in this encounter [facility]* Diagnosis 13 weeks gestation of (HHS-HCC) Second trimester (HHS-HCC) state, incidental Thyroid disease Unspecified disorder of thyroid History of prior with IUGR Diabetes mellitus screening Screening for diabetes mellitus documented in this encounter [facility]* Diagnosis Thyroid disease affecting - Primary History of prior with IUGR documented [facility] this encounter [facility]* Diagnosis Second trimester [...] membranes documented in this encounter [facility]* Diagnosis 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 trimester- Primary History of prior with IUGR History of premature rupture of membranes documented in this encounter [facility]* Diagnosis Hypothyroidism, unspecified type- Primary Second trimester (HHS-HCC) state, incidental 21 weeks gestation of (HHS-HCC) Vaginal discharge Leukorrhea, not specified as infective STD exposure documented in this encounter [facility]* Diagnosis Size of fetus inconsistent with dates in second trimester (HHS-HCC)- Primary Second trimester (HHS-HCC) state, incidental 25 weeks gestation of (HHS-HCC) Diabetes mellitus screening Screening for diabetes mellitus documented in this encounter [facility] HealthcareEvaluation note* Diagnosis Third trimester (HHS-HCC) state, incidental 28 weeks gestation of (HHS-HCC) documented in this encounter [facility]* Diagnosis Third trimester (HHS-HCC) state, incidental 30 weeks gestation of (HHS-HCC) documented in this encounter [facility]* Diagnosis Third trimester (HHS-HCC) state, incidental 32 weeks gestation of (HHS-HCC) Thyroid disease Unspecified disorder of thyroid History of prior with IUGR Hypothyroidism, unspecified type [facility] No data available for this section [facility] filedocumented in this encounter [facility] filedocumented in this encounter [facility]Not on filedocumented in this encounter [facility]Not on filedocumented in this encounter [facility] No data available for this section [facility] Summary Purpose Family History No [...] InactivatedComments04/21/2021 7:00 PM2 1:57 PMDate Activated Date AhxoyjdxpkgOhiuisfo56/14/2021 5:01 PM03/26/2021 7:46 PMDate ActivatedDate InactivatedComments05/30/2021 7:15 AM06/01/2021 2:55 PMDate ActivatedDate InactivatedComments05/12/2021 1:10 PM2 2:16 PMDate ActivatedDate InactivatedComments04/21/2021 7:00 PM2 1:57 PMDate ActivatedDate OjsaplrhjeeAarmlyas86/14/2021 5:01 PM03/26/2021 7:46 PM Additional Source Comments INFORMATION SOURCE (unrecogn ized section and content) DATE CREATED AUTHOR 11/15/2021 [facility] DATE CREATED AUTHOR AUTHOR'S ORGANIZ ATION 09/09/2023 [facility] DATE CREATED AUTHOR AUTHOR'S ORGANIZ ATION 05/21/2024 [facility] DATE CREATED AUTHOR AUTHOR'S ORGANIZ ATION 07/06/2024 [facility] DATE CREATED AUTHOR AUTHOR'S ORGANIZ ATION 07/10/2024 [facility] DATE CREATED AUTHOR AUTHOR'S ORGANIZ ATION 07/13/2024 [facility] DATE CREATED AUTHOR AUTHOR'S ORGANIZ ATION 11/21/2024 [facility] DATE CREATED AUTHOR AUTHOR'S ORGANIZ ATION 12/12/2024 [facility] DATE CREATED AUTHOR AUTHOR'S ORGANIZ ATION 01/28/2025 [facility] EPIC Patient Care team informatio n (unrecognized section and content) Team MemberRelationshipSpecialtyStart DateEnd Date Staci White MD [address] [place] [address] PCP - GeneralInternal Medicine11/29/22Team MemberRelationshipSpecialtyStart Date End Date Staci White MD [address] [place] [address] PCP - GeneralInternal Medicine11/29/22Team MemberRelationshipSpecialtyStart Date End Date Staci White MD [address] [place] [address] PCP - GeneralInternal Medicine11/29/22Team MemberRelationshipSpecialtyStart Date End [place] [address] Attending ProviderMedical Clinical Genetics05/14/24Team MemberRelationship SpecialtyStart DateEnd Date Staci White MD [address] [place], [place] [address] PCP - GeneralInternal Medicine11/29/22am MemberRelationshipSpecialtyStart Date End Date Staci White MD [address] [place] [address] PCP - GeneralInternal Medicine11/29/22am MemberRelationshipSpecialtyStart Date End Date Staci White MD [address] [place] [address] PCP - GeneralInternal Medicine11/29/22am MemberRelationshipSpecialtyStart Date End Date Staci White MD [address] [place] [place] [address] PCP - GeneralInternal Medicine11/29/22am MemberRelationshipSpecialtyStart Date End Date Staci White MD PCP - GeneralInternal Medicine04/07/21am MemberRelationshipSpecialtyStart Date End Date Staci White MD [address] [place] [address] PCP - GeneralInternal Medicine11/29/22am MemberRelationshipSpecialtyStart Date End Date Staci White MD PCP - GeneralInternal Medicine04/07/21am MemberRelationshipSpecialtyStart Date End Date Staci White MD PCP - GeneralInternal Medicine04/07/21Te MemberRelationshipSpecialtyStart Date End Date Staci White MD [address] [place] [address] PCP - [facility]King[facility]11/29/22Te MemberRelationshipSpecialtyStart Date End Date Staci White MD [address] [place] [address] PCP - GeneralInternal [facility]11/29/22Te MemberRelationshipSpecialtyStart Date End Date Staci White MD [address] [place] [address] [facility]11/29/22Te MemberRelationshipSpecialtyStart Date End Date Staci White MD [address] [place] [address] [facility]11/29/22Te MemberRelationshipSpecialtyStart Date End Date Staci White MD [address] [place] [address] PCP - GeneralKingman [facility] Medical Centernal [facility]11/29/22 Reason for Visit (unrecogniz ed section and [...] BE BASED ON THE PRIMARY CLINICAL RECORDS. [facility]. provides no warranty or guarantee of the accuracy or completeness of information in this document.
[2025-02-15] MEDS: 0.9 % SODIUM CHLORIDE 1,000 ML 999 ML IV (19:41)
[2025-02-15] MEDS: TERBUTALINE SULFATE 1 MG/ML VIAL 0.25 MG SUBQ (19:43)
[2025-02-15 19:48] LABS: Hematocrit 29.0 % (36.0-48.0); Hemoglobin 9.5 g/dL (12.0-16.0); Immature Granulocytes Abs Auto 0.09 10^3/uL (0.00-0.03); Immature Granulocytes Pct Auto 0.9 % (0.0-0.5); Lymphocytes Absolute Auto 1.7 10^3/uL (1.2-3.8); Mean Corpuscular HGB Conc 32.8 g/dL (29.9-35.2); Mean Corpuscular Hemoglobin 30.6 pg (26.7-34.0); Mean Corpuscular Volume 93.5 fL (81.0-99.0); Platelet Count 365 10^3/uL (150-450); Red Blood Count 3.10 10^6/uL (4.20-5.40); White Blood Count 9.7 10^3/uL (4.0-11.0)
[2025-02-15 19:52] LABS: Glucose Urine UA NEGATIVE (NEGATIVE)
[2025-02-15 20:17] VITALS: BP 115/56; PULSE 104
[2025-02-15] MEDS: 0.9 % SODIUM CHLORIDE 1,000 ML 200 ML IV (20:36)
== END 2025-02-15 21:10 | disposition home or self-care (01) ==
LOC: FBCO 19:19 → FBC 19:19
PROVIDERS: Admitting Provider Obstetrics & Gynecology; Visit Provider Obstetrics & Gynecology
DX: O47.03 False labor before 37 completed weeks of gestation, third trimester (principal); Z3A.34 34 weeks gestation of pregnancy
CPT/HCPCS: 36415; 59025; 81003; 85025; 86850; 86900; 86901; 96372; G0378; G0379; J3105

== ENCOUNTER 2025-02-19 13:03 | Outpatient (OUT) | payer BC, SELFPAY ==
--- NOTE | 2025-02-19 | US_ITS ---
[address] [address] Patient Name: YANA PAYNE MRN: [id number] date: 2000 Sex: F Assigned Patient Location: [facility] Current Patient Location: [facility] Accession/Order Number: [id number] Exam Date: 02/19/2025 13:08 Report Date: 02/19/2025 14:15 At the request of: SHAUNA NAIR DO Procedure: US OB BPP w non-stress Biophysical profile. Reason for exam: Thyroid disease COMPARISON: BPP 02/12/2025 TECHNIQUE: Transabdominal imaging of the gravid uterus was obtained. FINDINGS: The tent worker reports a BPP of 8 out of 8. CALVIN is normal at 24.96 cm. heart rate 153 bpm. US/US OB BPP w non-stress IMPRESSION: BPP 8 out of 8. Borderline polyhydramnios. Impression dictated by: Hermelindo Rivero Jr. [email or web address] 02/19/2025 2:15 PM Dictation Location: [employer] Electronically authenticated by: [id number] Y Date: 02/19/2025 14:15
--- OUTSIDE RECORDS SUMMARY | 2025-02-19 13:06 | XMS_ITS | Encounter Summary ---
Author Organization [facility] Address [address] [place] [address] Care Team Providers Care Hr Shared Services Consultant Name Role Phone Carrillo White MD Primary Care Provider [phone] Encounter Details DateTypeDepartmentCare Team (Latest Contact Info)Wdiqodgaffa22/01/2025Telephone [facility] [address] [place] [address] [place] [address] Ann Ma MA Social History Tobacco UseTypesPacks/DayYears UsedDateSmoking Tobacco: NeverAlcohol UseStandard Drinks/WeekCommentsYes0 (1 standard drink = 0.6 oz pure alcohol)occasional alcohol useEstimated Date of UzxotjwaMhvqezzxOjq20/03/2026ased on last menstrual period of 06/16/2024Sex and Gender InformationValueDate RecordedSex Assigned at BirthNot on fileLegal PgbSteeue92/15/2023 10:14 PM EDTGender IdentityNot on fileSexual OrientationNot on filedocumented as of this encounter Miscellaneous Notes * Telephone Encounter - Ann Ma MA - 02/18/2025 1:12 PM EST Patient called stating she was seen over the weekend by Dr. Marshall in L&D and was advised she should be off work for a couple of weeks. Patient reports that her employer is requesting a work excuse note. Patient was informed that Dr. Marshall is out of the office today and that this information will need to be verified with him upon his return. Patient verbalized understanding. documented in this encounter Plan of Treatment DateTypeDepartmentCare Team (Latest Contact Info)Wdopdppelwe96/04/2025 11:00 AM ESTRoutine [facility] [address] [place] [phone] Santosh Marshall DO [address] [place] [address] documented as of this encounter Visit Diagnoses Not on filedocumented in this encounter Care Teams Team MemberRelationshipSpecialtyStart DateEnd Date Carrillo White MD [address] [place] [address] PCP - GeneralInternal Medicine11/29/22documented as of this encounter
--- OUTSIDE RECORDS SUMMARY | 2025-02-19 13:06 | XMS_ITS | Clinical Summary ---
Author Organization [facility] Address [address] [place] [address] Care Team Providers Care Legal Mediator Name Role Phone Carrillo White MD Primary Care Provider [phone] Allergies No known active allergies Medications MedicationSigDispense QuantityRefillsLast FilledStart DateEnd DateStatus levothyroxine (Synthroid) 125 MCG tablet Indications:Thyroid diseaseTake 1 tablet (125 mcg) by mouth in the morning. Take before meals. 30 tablet 1106//511684/6Active MV-Min-Fe Fum-FA-DHA ( 1 PO) Take by mouthActive Active Problems ProblemNoted DateDiagnosed DateThyroid zkiqwyf6601/28/2025History of prior with IUGR nrtpwwe2001/28/2025Estimated Date of DeliveryComments Yes03/23/2025ased on last menstrual period of 06/16/2024 Encounters DateTypeDepartmentCare StdhZhugdutugoq85/01/2025Telephone [facility] [address] [place] [address] [place] [address] Ann Ma MA 02/12/2025linisync Result Encounter NOMS External Department Unsolicited Shauna Marshall, DO 02/12/2025linisync Result Encounter NOMS External Department Unsolicited Shauna Marshall, DO 02/05/2025linisync Result Encounter NOMS External Department Unsolicited Shauna Marshall, DO 02/05/2025linisync Result Encounter NOMS External Department Unsolicited Abril Stone NP 02/04/2025 8:00 AM ESTAncillary Procedure [facility] [address] [facility] [place] [address] Thyroid disease; History of prior with IUGR ; Hypothyroidism, unspecified type01/28/2025 8:30 AM ESTRoutine [facility] [address] [facility] [address] Shauna Marshall, Third trimester ([facility]); 32 weeks gestation of ([facility]); Thyroid disease; History of prior with IUGR ; Hypothyroidism, unspecified type01/28/2025amboo flowsheet [facility] [address] [facility] [address] Shauna Marshall DO 01/14/2025 8:30 AM EDTRoutine [facility]UENT[facility] [address] [facility] [address] Shauna Marshall, Third trimester ([facility]); 30 weeks gestation of ([facility])01/14/2025[facility] flowsheet [facility] [address] [facility] [address] Shauna Marshall DO 12/31/2024 11:00 AM EDTRoutine [facility] FUENT[facility] [address] [facility] [address] Shauna Marshall, Third trimester ([facility]); 28 weeks gestation of ([facility])12/31/2024 10:30 AM EDTAncillary Procedure [facility] FUENT[facility] [address] [facility] [address] Size of fetus inconsistent with dates in second trimester ([facility])12/12/2024 Abstract [facility] [address] [facility] [address] Shauna Marshall, DO 5Clinisync Result Encounter NOMS External Department Unsolicited Erum Guidry PA 12/11/2024Telephone [facility] [place] [facility] [address] [facility] [address] Erum Guidry PA 5Clinisync Result Encounter NOMS External Department Unsolicited Erum Guidry PA 12/10/2024 10:00 AM EDTRoutine [facility] [address] [facility] [address] Erum Guidry PA Size of fetus inconsistent with dates in second trimester ([facility]) (Primary Dx); Second trimester ([facility]); 25 weeks gestation of ([facility]); Diabetes mellitus auqityglj69/22/2025amboo flowsheet [facility] [address] [facility] [address] Erum Guidry PA 5Abstract [facility] [place] [facility] [address] [facility] [address] Shauna Marshall, DO 11/27/2024bstract [facility] [address] [facility] [address] Shauna Marshall, DO 11/23/2024bstract [facility] [place] [facility] [address] [facility] [address] Ann Ma MA from Last 3 Months [...] ValueDate RecordedSex Assigned at BirthNot on fileLegal DtoOrkhsw08/15/2023 10:14 PM EDTGender IdentityNot on fileSexual OrientationNot on file Last Filed Vital Signs Vital SignReadingTime TakenCommentsBlood Eybuwebf062/7001/28/2025 8:39 AM EST Pulse--Temperature--Respiratory Rate--Oxygen Saturation--Inhaled Oxygen Concentration--Nvrrjk30.7 kg (158 lb)01/28/2025 8:39 AM DLVFngabc551.1 cm (5' 5 )11/29/2022 3:23 PM EDTBody Mass Index26.2909 3:23 PM EDT Plan of Treatment DateTypeDepartmentCare Team (Latest Contact Info)Ljjqkpfqrkg07/04/2025 11:00 AM ESTRoutine [facility] [address] [facility] [address] Shauna Marshall DO [address] [facility] [address] [place], [place] [address] Procedures Procedure NamePriorityDate/TimeAssociated DiagnosisCommentsUS OB BPP W NON-HEDQYM9202/12/2025 8:46 PM EST ALL CBC WITH AUTO MXYNXknnebi76/25/2025 4:15 PM EST [facility] DRUG SCREEN RAPID (URINE)Xypcsvz5402/12/2025 4:00 PM EST [facility] UA (CLEAN/CATCH) INTERNET MERCHANT/MICRO IF IND.Spldcrs8702/12/2025 4:00 PM EST US OB BPP W NON-RQFSNZ9202/05/2025 7:47 PM EST ALL THYROID STIM DUQXRXSNdagulg72/18/2025 2:42 PM EST US OB FOLLOW UP TRANSABDOMINAL OYWYCQODBegynkn35/17/2025 8:26 AM EST Thyroid disease History of prior with IUGR Hypothyroidism, unspecified type POCT URINALYSIS QMFGRADDSdzpizf92/10/2025 8:40 AM EST Third trimester ([facility]) POCT URINALYSIS LEDGXSRRMxtdykc50/27/2025 8:40 AM EDT Third trimester ([facility]) POCT URINALYSIS XBJNARGMWfnpxms83/13/2025 11:29 AM EDT Third trimester ([facility]) US OB FOLLOW UP TRANSABDOMINAL RDMGONEMAvvzaut65/13/2025 10:55 AM EDT Size of fetus inconsistent with dates in second trimester ([facility]) GLUCOSE TOLERANCE 3 HAOTMlpkfyh67/24/2025 8:42 AM EDT ALL THYROID STIM XGSLQTOTpjxnzx99/23/2025 9:34 AM EDT GLUCOSE 1 AZNLFvjcpkd80/23/2025 9:34 AM EDT ALL CBC WITH AUTO UMOTJobatsf34/23/2025 9:34 AM EDT POCT URINALYSIS ZHZUVDBUBdnxoct39/22/2025 10:28 AM EDT Second trimester ([facility]) from Last 3 Months Results * US OB BPP W NON-STRESS (02/12/2025 8:46 PM EST) Only the most recent of2 resultswithin the time period is included. Anatomical RegionLateralityModalityOtherSpecimen (Source)Anatomical Location / LateralityCollection Method / VolumeCollection TimeReceived Time02/12/2025 8:46 PM EST Narrative 02/12/2025 9:25 PM EST [facility] ?[address] ? [place] [address] ? Ultrasound Report ? Signed ? Patient: BROECKEL,YANA R ?MR#: [id number] ?? : 2000 ?Acct:[id number] ?? Age/Sex: 25 / F ?ADM Date: 02/12/ ?? Loc: [facility] ??250-1 ? Attending Dr: Shauna Marshall D.O. ? Ordering Physician: Shauna Marshall D.O. ?? Date of Service: 02/12/25 ?? Procedure(s): US OB BPP w non-stress ?? Accession Number(s): [id number] ? cc: Shauna Marshall D.O.; Physician,Non-Staff Ravi ? [facility] ? [address] ? [place] [address] ? Patient Name: ?? YANA PAYNE ? MRN: [facility]:[id number] ? date: 2000 ?Sex: F ?? Assigned Patient Location: [facility] ?? Current Patient Location: [facility]O ?? Accession/Order Number: [id number] ?? Exam Date: 02/12/2025 ??14:55 ?Report Date: 02/12/2025 ??20:46 ? At the request of: ?? SHAUNA ??JOANNA ??DO ? Procedure: ??US OB BPP w non-stress ? Ultrasound biophysical profile ? COMPARISON: 02/05/2025 ? INDICATION: Hypothyroidism ? FINDINGS IMPRESSION: Cephalic position. ?? heart rate 153 bpm. ??CALVIN 17.4 ?? cm. ??Biophysical profile score /8 ? Impression dictated by: Ramakrishna Santiago M.D. ??02/12/2025 8:46 PM ? Dictation Location: [facility]IO-PC-29 ? Electronically authenticated by: [id number] ??Y ?? Date: 02/12/2025 ??20:46 ? Dictated By: ?Ramakrishna Santiago M.D. ? Signed By: ?02/12/252124 ? DD/ 45 ? TD/TT: ? Restaurant Assistant: Procedure Note Radiology, Radiologist, MD - 02/12/2025 [place] [address] Ultrasound Report Signed Patient: YANA PAYNE RMR#: [id number] : 2000Acct:[id number] Age/Sex: 25 / FADM Date: 02/12/25 Loc: [facility] 250-[address]: Shauna Marshall D.O. Ordering Physician: Shauna Marshall D.O. Date of Service: 02/12/25 Procedure(s): US OB BPP w non-stress Accession Number(s): [id number] cc: Shauna Marshall D.O.; Physician,Non-Staff Ravi [place] [address] Patient Name: YANA PAYNE MRN: [facility]:[id number] date: 2000 Sex: F Assigned Patient Location: [facility] Current [place] [facility] Accession/Order Number: [id number] Exam Date: 02/12/2025 14:55 Report Date: 02/12/2025 20:46 At the request of: SHAUNA MARSHALL DO Procedure: US OB BPP w non-stress Ultrasound biophysical profile COMPARISON: 02/05/2025 INDICATION: Hypothyroidism FINDINGS IMPRESSION: Cephalic position. heart rate 153 bpm. AFI17.4 cm. Biophysical profile score 8/8 Impression dictated by: Ramakrishna Santiago M.D. 02/12/2025 8:46 PM Dictation Location: [place] [address] Electronically authenticated by: [id number] Y Date: 0:46 Dictated By: Ramakrishna Santiago M.D. Signed By:02/12/252124 DD/ 45 TD/TT: Restaurant Assistant: Authorizing ProviderResult TypeResult StatusCorey Joanna DOCLINISYNC IMAGINGFinal Result * (ABNORMAL) ALL CBC WITH AUTO DIFF (02/12/2025 4:15 PM EST) Only the most recent of2 resultswithin the time period is included. ComponentValueRef RangeTest MethodAnalysis TimePerformed AtPathologist Signature TB WBC9.84.0 - 11.0 10 3/uLTBHTBH RBC3.28(L)4.20 - 5.40 10 6/uLTBHTBH HGB10.0 (L)12.0 - 16.0 g/dLTBHTBH HCT30.7(L)36.0 - 48.0 %TBHTBH MCV93.681.0 - 99.0 fLTBH TBH MCH30.526.7 - 34.0 pgTBHTBH MCHC32.629.9 - 35.2 g/dLTBHTBH RDW13.011.0 - 15.0 %TBHTBH SPU761761 - 450 10 3/uLTBHTBH MPV11.39.5 - 13.5 [...] CLINISYNC [facility] * (ABNORMAL) [facility] UA (CLEAN/CATCH) INTERNET MERCHANT/MICRO IF IND. (02/12/2025 4:00 PM EST) ComponentValueRef [...] 02/12/2025 5:25 PM EST Authorizing ProviderResult TypeResult StatusShauna Marshall DOCLINISYNCFinal Result Performing OrganizationAddressCity/State/ZIP CodePhone Number [facility] TB * ALL THYROID STIM HORMONE (02/05/2025 2:42 [...] StatusAbril Stone NPCLINISYNCFinal ResultPerforming OrganizationAddressCity/State/ZIP CodePhone Number [facility] * US OB follow up transabdominal [...] BY: Hermelindo Padilla MD Authorizing ProviderResult TypeResult Shea Stone NPIMG OB US PROCEDURESFinal Result * POCT urinalysis dipstick [...] Location / LateralityCollection Method / VolumeCollection TimeReceived GfozOrqgh63/10/2025 8:40 AM EST Narrative Authorizing ProviderResult TypeResult [...] 12/12/2024 12:31 PM EDT Authorizing ProviderResult TypeResult StatusAmy Mullins PALAB BLOOD ORDERABLES Final ResultPerforming OrganizationAddressCity/State/ZIP CodePhone Number [facility] * (ABNORMAL) GLUCOSE 1 HOUR (12/11/2024 9:34 AM EDT)ComponentValueRef RangeTest MethodAnalysis TimePerformed AtPathologist SignatureGLUCOSE 1 LMMC498(H)<130 mg/dLTBHSpecimen (Source)Anatomical Location / LateralityCollection Method / VolumeCollection TimeReceived Time12/11/2024 9:34 AM EDT12/11/2024 10:16 AM EDT Narrative CLIN[facility]NC - 12/11/2024 10:57 AM EDT Authorizing ProviderResult TypeResult StatusAmy Brea PALAB BLOOD ORDERABLES Final ResultPerforming OrganizationAddressCity/State/ZIP CodePhone Number [facility] from Last 3 Months Insurance Care Teams Team MemberRelationshipSpecialtyStart DateEnd Date Carrillo White MD [address] [place] [address] PCP - GeneralHopi Health Care Centernal Medicine11/29/22
--- OUTSIDE RECORDS SUMMARY | 2025-02-19 13:06 | XMS_ITS | Encounter Summary ---
Author Organization [facility] Address [address] [facility] [place] [address] Care Team Providers Care Director Of Engineering Name Role Phone Carrillo White MD Primary Care Provider [phone] Encounter Details DateTypeDepartmentCare Team (Latest Contact Info)Bcndznsxsaw04/18/2025linisync Result Encounter NOMS External Department Unsolicited Shauna Marshall DO [address] [place] [address] Social History Tobacco UseTypesPacks/DayYears UsedDateSmoking Tobacco: NeverAlcohol UseStandard Drinks/WeekCommentsYes0 (1 standard drink = 0.6 oz pure alcohol)occasional alcohol useEstimated Date of CtpgewqmIfoeqihmIdo016Based on last menstrual period of 06/16/2024Sex and Gender InformationValueDate RecordedSex Assigned at BirthNot on fileLegal KbsPgfutm13/15/2023 10:14 PM EDTGender IdentityNot on fileSexual OrientationNot on filedocumented as of this encounter Plan of Treatment DateTypeDepartmentCare Team (Latest Contact Info)Jknyfkevzyq19/04/2025 11:00 AM ESTRoutine [facility] [address] [place] [address] Shauna Marshall DO [address] [place] [address] documented as of this encounter Procedures Procedure NamePriorityDate/TimeAssociated DiagnosisCommentsUS OB BPP W NON-JWZAIJ2902/05/2025 7:47 PM EST documented in this encounter Results * US OB BPP W NON-STRESS (02/05/2025 7:47 PM EST)Anatomical Region LateralityModalityOtherSpecimen (Source)Anatomical Location / Laterality Collection Method / VolumeCollection TimeReceived Time02/05/2025 7:47 PM EST Narrative 02/05/2025 7:49 PM EST The [facility] ?[address] ? [place] [id number] ? Ultrasound Report ? Signed ? Patient: YANA PAYNE R ?MR#: [id number] ?? : 2000 ?Acct:[id number] ?? Age/Sex: 25 / F ?ADM Date: 02/05/25 ?? Loc: US ? Attending Dr: Shauna Marshall D.O. ? Ordering Physician: Shauna Marshall D.O. ?? Date of Service: 02/05/25 ?? Procedure(s): US OB BPP w non-stress ?? Accession Number(s): [id number] ? cc: Shauna Marshall D.O.; Physician,Non-Staff M.D. ? [facility] ? [address] ? [place] [address] ? Patient Name: ?? YANA Jaimes KERRY ? MRN: [facility]:[id number] ? date: 2000 ?Sex: F ?? Assigned Patient Location: US ?? Current Patient Location: ? Accession/Order Number: [id number] ?? Exam Date: 02/05/2025 ??13:02 ?Report Date: [...] M.D. ??02/05/2025 7:47 PM ? Dictation Location: [facility]PC-20 ? Electronically authenticated by: [id number] ??Y ?? Date: 02/05/2025 ??19:47 ? Dictated By: ?Panfilo Saul D.O. ? Signed By: ?02/05/251948 ? DD/ 46 ? TD/TT: ? Psychiatric Assistant: Procedure Note Radiology, Radiologist, - 02/05/2025 [place] [address] Ultrasound Report Signed Patient: YANA PAYNE RMR#: [id number] : 2000Acct:[id number] Age/Sex: 25 / FADM Date: 02/05/25 Loc: US Attending Dr: Shauna Marshall D.O. Ordering Physician: Shauna Marshall D.O. Date of Service: 02/05/25 Procedure(s): US OB BPP w non-stress Accession Number(s): [id number] cc: Shauna Marshall D.O.; Physician,Non-Staff Ravi The [address] [address] Patient Name: YANA PAYNE MRN: [facility]:[id number] date: 2000 Sex: F Assigned Patient Location: US Current Patient Location: Accession/Order Number: [id number] Exam Date: 02/05/2025 13:02 Report Date: 02/05/2025 [...] Saul M.D. 02/05/2025 7:47 PM Dictation Location: [place] [address] Electronically authenticated by: [id number] Y Date: 9:47 Dictated By: Panfilo Saul D.O. Signed By:02/05/251948 DD/ 46 TD/TT: Psychiatric Assistant: Authorizing ProviderResult TypeResult StatusCorey Joanna DOCLINISYNC IMAGINGFinal Result documented in this encounter Visit Diagnoses Not on filedocumented in this encounter Care Teams Team MemberRelationshipSpecialtyStart DateEnd Date Carrillo White MD [address] [facility] [place] [address] PCP - GeneralInternal Medicine11/29/22documented as of this encounter
--- OUTSIDE RECORDS SUMMARY | 2025-02-19 13:06 | XMS_ITS | Encounter Summary ---
Author Organization [facility] Address [address] [facility] [place] [address] Care Team Providers Care Buggy Operator Name Role Phone Carrillo White MD Primary Care Provider [phone] Encounter Details DateTypeDepartmentCare Team (Latest Contact Info)Calmmgimaht99/18/2025linisync Result Encounter NOMS External Department Unsolicited Abril Stone, ENGRAVER SET UP OPERATOR [address] [place] [address] Social History Tobacco UseTypesPacks/DayYears UsedDateSmoking Tobacco: NeverAlcohol UseStandard Drinks/WeekCommentsYes0 (1 standard drink = 0.6 oz pure alcohol)occasional alcohol useEstimated Date of QnztjiqvJuvjstteZwn33/03/2026Based on last menstrual period of 06/16/2024Sex and Gender InformationValueDate RecordedSex Assigned at BirthNot on fileLegal UqvVvtthr39/15/2023 10:14 PM EDTGender IdentityNot on fileSexual OrientationNot on filedocumented as of this encounter Plan of Treatment DateTypeDepartmentCare Team (Latest Contact Info)Wesgtacjbim25/04/2025 11:00 AM ESTRoutine [facility] [address] [place] [address] Santosh Marshall DO [address] [place], [place] [address] documented as of this encounter Procedures Procedure NamePriorityDate/TimeAssociated DiagnosisCommentsALL THYROID STIM BIBMZHCGdahqab95/18/2025 2:42 PM EST documented in this encounter Results * ALL THYROID STIM HORMONE (02/05/2025 2:42 PM EST)ComponentValueRef RangeTest MethodAnalysis TimePerformed AtPathologist SignatureTHYROID STIMULATING HORMONE1.3280.358 - 3.740 uIU/mLTBHSpecimen (Source)Anatomical Location / LateralityCollection Method / VolumeCollection TimeReceived Time02/05/2025 2:42 PM EST02/05/2025 2:44 PM EST Narrative [facility] - 02/05/2025 3:43 PM EST Authorizing ProviderResult TypeResult StatusKristina Bertha NPCLINISYNCFinal ResultPerforming OrganizationAddressCity/State/ZIP CodePhone Number [facility] documented in this encounter Visit Diagnoses Not on filedocumented in this encounter Care Teams Team MemberRelationshipSpecialtyStart DateEnd Carrillo White MD [address] [place] [address] PCP - GeneralInternal Medicine11/29/22documented as of this encounter
--- OUTSIDE RECORDS SUMMARY | 2025-02-19 13:06 | XMS_ITS | Encounter Summary ---
Author Organization [facility] Address [address] [place] [address] Care Team Providers Care Emergency Veterinary Technician Name Role Phone Carrillo White MD Primary Care Provider [phone] Encounter Details DateTypeDepartmentCare Team (Latest Contact Info)Cpasbunzrkx21/25/2025linisync Result Encounter NOMS External Department Unsolicited Santosh Marshall DO [address] [place] [address] Social History Tobacco UseTypesPacks/DayYears UsedDateSmoking Tobacco: NeverAlcohol UseStandard Drinks/WeekCommentsYes0 (1 standard drink = 0.6 oz pure alcohol)occasional alcohol useEstimated Date of DnifoxrjMbvzzuabIjd466Based on last menstrual period of 06/16/2024Sex and Gender InformationValueDate RecordedSex Assigned at BirthNot on fileLegal YsiNejgxa95/15/2023 10:14 PM EDTGender IdentityNot on fileSexual OrientationNot on filedocumented as of this encounter Plan of Treatment DateTypeDepartmentCare Team (Latest Contact Info)Aelljqtincp68/04/2025 11:00 AM ESTRoutine [facility] [address] [place] [address] Santosh Marshall DO [address] [place] [address] documented as of this encounter Procedures Procedure NamePriorityDate/TimeAssociated DiagnosisCommentsALL CBC WITH AUTO OOJKUiveuws57/25/2025 4:15 PM EST H UA (CLEAN/CATCH) HARNESS CUTTER/MICRO IF IND.Xuucnwf3102/12/2025 4:00 PM EST [facility] DRUG SCREEN RAPID (URINE)Ijnjuxr0602/12/2025 4:00 PM EST documented in this encounter Results * (ABNORMAL) ALL CBC WITH AUTO DIFF (02/12/2025 4:15 PM EST)ComponentValueRef RangeTest MethodAnalysis TimePerformed AtPathologist SignatureTBH WBC9.84.0 - 11.0 10 3/uLTBHTBH RBC3.28(L)4.20 - 5.40 10 6/uLTBHTBH HGB10.0(L)12.0 - 16.0 g/dLTBHTBH HCT30.7(L)36.0 - 48.0 %TBHTBH MCV93.681.0 - 99.0 fLTBHTBH MCH30.5 26.7 - 34.0 pgTBHTBH MCHC32.629.9 - 35.2 g/dLTBHTBH RDW13.011.0 - 15.0 %TBHTBH XLM782622 - 450 10 3/uLTBHTBH MPV11.39.5 - 13.5 [...] DOCLINISYNCFinal Result Performing OrganizationAddressCity/State/ZIP CodePhone Number CL[facility]NC TB * [facility] DRUG SCREEN RAPID (URINE) (02/12/2025 [...] Joanna DOCLINISYNCFinal Result Performing OrganizationAddressCity/State/ZIP CodePhone Number [facility] * (ABNORMAL) [facility] UA (CLEAN/CATCH) HARNESS CUTTER/MICRO IF IND. (02/12/2025 4:00 PM EST) ComponentValueRef [...] Joanna DOCLINISYNCFinal Result Performing OrganizationAddressCity/State/ZIP CodePhone Number [facility] documented in this encounter Visit Diagnoses Not on filedocumented in this encounter Care Teams Team MemberRelationshipSpecialtyStart DateEnd Carrillo White MD [address] [place] [address] PCP - GeneralInternal Medicine11/29/22documented as of this encounter
--- OUTSIDE RECORDS SUMMARY | 2025-02-19 13:06 | XMS_ITS | Encounter Summary ---
Author Organization [facility] Address [address] [facility] [place] [address] Care Team Providers Care Ground Operations Supervisor Name Role Phone Carrillo White MD Primary Care Provider [phone] Encounter Details DateTypeDepartmentCare Team (Latest Contact Info)Suqyxmhrwna42/25/2025linisync Result Encounter [facility] Unsolicited Shauna Marshall DO [address] [place] [address] Social History Tobacco UseTypesPacks/DayYears UsedDateSmoking Tobacco: NeverAlcohol UseStandard Drinks/WeekCommentsYes0 (1 standard drink = 0.6 oz pure alcohol)occasional alcohol useEstimated Date of AgbhiohsZmfyizzzLho996Based on last menstrual period of 06/16/2024Sex and Gender InformationValueDate RecordedSex Assigned at BirthNot on fileLegal NicNumcnm93/15/2023 10:14 PM EDTGender IdentityNot on fileSexual OrientationNot on filedocumented as of this encounter Plan of Treatment DateTypeDepartmentCare Team (Latest Contact Info)Rvtgunwulae13/04/2025 11:00 AM ESTRoutine [facility] [address] [place] [id number] Shauna Marshall DO [address] [place] [address] documented as of this encounter Procedures Procedure NamePriorityDate/TimeAssociated DiagnosisCommentsUS OB BPP W NON-WEACKZ0402/12/2025 8:46 PM EST documented in this encounter Results * US OB BPP W NON-STRESS (02/12/2025 8:46 PM EST)Anatomical Region LateralityModalityOtherSpecimen (Source)Anatomical Location / Laterality Collection Method / VolumeCollection TimeReceived Time02/12/2025 8:46 PM EST Narrative 02/12/2025 9:25 PM EST [facility] ?[address] ? [place] [id number] ? Ultrasound Report ? Signed ? Patient: YANA PAYNE R ?MR#: [id number] ?? : 2000 ?Acct:[id number] ?? Age/Sex: 25 / F ?ADM Date: 02/12/25 ?? Loc: [facility] ??250-1 ? Attending Dr: Shauna Marshall D.O. ? Ordering Physician: Shauna Marshall D.O. ?? Date of Service: 02/12/25 ?? Procedure(s): US OB BPP w non-stress ?? Accession Number(s): [id number] ? cc: Shauna Marshall D.O.; Physician,Non-Staff M.D. ? [facility] ? [address] ? [place] [address] ? Patient Name: ?? YANA PAYNE ? MRN: [facility]:[id number] ? date: 2000 ?Sex: F ?? Assigned Patient Location: [facility] ?? Current Patient Location: [facility] ?? Accession/Order Number: [id number] ?? Exam Date: 02/12/2025 ??14:55 ?Report Date: [...] Dictation Location: RADIO-PC-29 ? Electronically authenticated by: [id number] ??Y ?? Date: 02/12/2025 ??20:46 ? Dictated By: ?Ramakrishna Santiago M.D. ? Signed By: ?25/25 5 ? DD/ 45 ? TD/TT: ? Manifest Clerk: Procedure Note Radiology, Radiologist, - 02/12/[address] [address] Ultrasound Report Signed Patient: YANA PAYNE RMR#: [id number] : 2000Acct:[id number] Age/Sex: 25 / FADM Date: 02/12/25 Loc: [facility] 250-[address]: Shauna Marshall D.O. Ordering Physician: Shauna Marshall D.O. Date of Service: 02/12/25 Procedure(s): US OB BPP w non-stress Accession Number(s): [id number] cc: Shauna Marshall D.O.; Physician,Non-Staff Ravi [facility] [place] [address] Patient Name: YANA PAYNE MRN: [id number] date: 2000 Sex: F Assigned Patient Location: [facility] Current Patient Location: [facility] Accession/Order Number: [id number] Exam Date: 02/12/2025 14:55 Report Date: 02/12/2025 20:46 At the request of: SHAUNA MARSHALL DO Procedure: US OB BPP w non-stress Ultrasound biophysical profile COMPARISON: 02/05/2025 INDICATION: Hypothyroidism FINDINGS IMPRESSION: Cephalic position. heart rate 153 bpm. AFI17.4 cm. Biophysical profile score 8/8 Impression dictated by: Ramakrishna Santiago M.D. 02/12/2025 8:46 PM Dictation Location: [place] [address] Electronically authenticated by: [id number] Y Date: 0:46 Dictated By: Ramakrishna Santiago M.D. Signed By:02/12/252124 DD/ 45 TD/TT: Manifest Clerk: Authorizing ProviderResult TypeResult StatusCorey Joanna DOCLINISYNC IMAGINGFinal Result documented in this encounter Visit Diagnoses Not on filedocumented in this encounter Care Teams Team MemberRelationshipSpecialtyStart DateEnd Date Carrillo White MD [address] [facility] [place] [address] PCP - GeneralInternal Medicine11/29/22documented as of this encounter
--- OUTSIDE RECORDS SUMMARY | 2025-02-19 13:06 | XMS_ITS | Clinical Summary ---
Author Organization [facility] [place] [address] Care Team Providers Care Brewing Director Name Role Phone Carmita Jurado MD Unavailable [phone] Social History Tobacco UseTypesPacks/DayYears UsedDateSmoking Tobacco: Never Assessed CommentsUnknownSex and Gender InformationValueDate RecordedSex Assigned at Not on fileLegal NtiLtfnar00/24/2025 11:11 AM ESTGender IdentityNot on file Sexual [...] Td or Tdap), 06/22/2010, 10/16/2003, Additional history kepemePLEEkfnywnqw08/28/2004, 01/26/19998921HnvJLCVTwkzkxfiv84/27/2016, 06/22/2010HIBAged OutNo longer eligible based on patient's age to complete this topicNirsevimabAged OutNo longer eligible based on patient's age to complete this topicPneumococcalAged OutNo longer eligible based on patient's age to complete this topicRotavirusAged OutNo longer eligible based on patient's age to complete this topic Insurance Care Teams Team MemberRelationshipSpecialtyStart Date[place] [address] Attending ProviderMedical Clinical Genetics05/14/24
--- OUTSIDE RECORDS SUMMARY | 2025-02-19 13:08 | XMS_ITS | CCD ---
Author Organization [facility] Care Team Providers Care C.O.D. Biller Name Role Phone JOANNA, DR VILLATORO Admitting [...] Care Unavailable JOANNA, DR VILLATORO Consulting Unavailable JONANA, DR VILLATORO Admitting Unavailable JOANNA, DR VILLATORO [...] Primary Care Provider Carmita Jurado MD Unavailable [phone] CARMITA JURADO Referring Unavailable CARMITA JURADO Attending [...] (Original)acetaminophen 500 mg oral tablet (3 sources)Start: 33-21-2536rxmu 2 tablets by mouth every eight hours [...] oral capsule (2 sources)Cephalosporin AntibacterialStart: 03-09-2023 End: 15-34-9434mvjg 1 capsule by mouth four times dailyKeflex 500 mg Cap 500 mg = 1 cap(s), Oral, QID, X 7 day(s), # 28 cap(s), Refills(s) 0, Pharmacy: [facility] #[facility], 166, cm, 03/09/23 7:33:00 EST, Height/Length Dosing, 58.7, kg, 03/09/23 7:33:00 EST, Weight Dosing Start Date: 03/09/23 Stop Date: 03/16/23 Status: OrderedColace (3 sources)Start: 50-59-8154Mzbreg Refills(s) 0 Start Date: 11/30/22 Status: OrderedStart: 06-01-2021 End: 19-39-7406gxpm 1 capsule by mouth in the morning, then take 1 capsule by mouth at bedtimedocusate sodium (COLACE) 100 mg capsule Take 1 capsule (100 mg total) by mouth in the morning and 1capsule (100 mg total) before bedtime. 10 capsule 06/01/2021 11/05/2024 Discontinued (Therapy completed)Flonase (3 sources)CorticosteroidStart: 13-14-2415Lbuvhlp Nasal, Daily, Refill(s) 0 Start Date: 09/10/18 Status: OrderedFREESTYLE LITE METER kit (3 sources)Start: 35-35-0460PSIVIFQML LITE METER kit See Admin Instructions. 03/26/2021 Activehydrocortisone acetate 0.025 mg/mg / lidocaine hydrochloride 0.03 mg/mg rectal gel (2 sources)Antiarrhythmic, Corticosteroid, Amide Local AnestheticStart: 10-63-1847jrmokojagxkddx-lidocaine 2.5%-3% rectal gel with applicator 1 carmen, Rectal, BID, 60 EA, Refill(s) 1,[id number], 166, cm, 11/11/22 9:28:00 EDT, Height/Length Dosing, 59.4, kg, 11/11/22 9:28:00 EDT, Weight Dosing Start Date: 11/19/22 Status: OrderedStart: 22-38-9399ybwayfyyermunm-lidocaine 2.5%-3% rectal gel with applicator 1 carmen, Rectal, BID, 60 EA, Refill(s) 1,[facility], 166, cm, 11/11/22 9:28:00 EDT, Height/Length Dosing, 59.4, kg, 11/11/22 9:28:00 EDT, Weight Dosing Start Date: 11/11/22 Status: Orderedlevothyroxine sodium 0.125 mg oral tablet (20 sources)l-ThyroxineStart: 09-17-2024 End: 03-53-8903qywi 1 tablet by mouth before mealtimelevothyroxine (Synthroid) 125 MCG tablet Indications: Thyroid disease Take 1 tablet (125 mcg) by mouth in the morning. Take before meals. 30 tablet 11 09/17/2024 09/17/2025 ActiveStart: 08-22-2024 End: 42-75-2559ystv 1 tablet by mouth before mealtimelevothyroxine (Synthroid) 25 MCG tablet Indications: Thyroid disease Take 1 tablet (25 mcg) by mouth in the morning. Take before meals. 30 tablet 11 08/22/2024 10/15/2024 Discontinued Start: 33-05-4999bunw 1 tablet by mouth once dailySynthroid 100 mcg Tab 100 mcg = 1 tab(s), Oral, Daily, # 90 tab(s), Refills(s) 0, Pharmacy: [facility] #[facility], 166, cm, 08/08/23 15:44:00 EDT, Height/Length Dosing, 56.1, kg, 08/08/23 15:51:00 EDT, Weight Dosing Start Date: 06/19/24 Status: Ordered Quantity: 90.0 Unit: tab(s) Repeat number: 1Start: 06-19-2024 End: 24-93-3977hqsk 1 tablet by mouth once dailylevothyroxine (Synthroid, Levoxyl) 100 MCG tablet Take 100 mcg by mouth Daily 06/19/2024 10/15/2024 DiscontinuedStart: 50-16-3999klsw 1 tablet by mouth once dailySynthroid 100 mcg Tab 100 mcg = 1 tab(s), Oral, Daily, # 90 tab(s), Refills(s) 1, Pharmacy: [facility] #37, 166, cm, 05/16/23 14:25:00 EST, Height/Length Dosing, 56.7, kg, 05/16/23 14:25:00 EST, Weight Dosing Start Date: 05/16/23 Status: OrderedStart: 87-46-3089dtnz 1 tablet by mouth once dailySynthroid 112 mcg Tab 112 mcg = 1 tab(s), Oral, Daily, # 60 tab(s), Refills(s) 0, Pharmacy: [facility] #[facility], 166, cm, 11/30/22 12:12:00 EDT, Height/Length Dosing, 58.8, kg, 11/30/22 12:12:00 EDT, Weight Dosing Start Date: 02/07/23 Status: OrderedStart: 35-05-4638zfgw 1 tablet by mouth once dailySynthroid 112 mcg Tab 112 mcg = 1 tab(s), Oral, Daily, # 60 tab(s), Refills(s) 0, Pharmacy: [facility] #37, 166, cm, 10/08/22 15:10:00 EDT, Height/Length Dosing, 57.8, kg, 10/08/22 15:10:00 EDT, Weight Dosing Start Date: 10/08/22 Status: OrderedStart: 10-08-2022 End: 35-08-7009vgba 1 tablet by mouth in the morninglevothyroxine (Synthroid, Levoxyl) 112 MCG tablet Take 112 mcg by mouth in the morning. 10/08/2022 0 08/17/2024 DiscontinuedStart: 48-93-6993mxlv 1 tablet by mouth once daily levothyroxine 125 mcg (0.125 mg) Tab 125 mcg = 1 tab(s), Oral, Daily, # 90 tab(s), Refills(s) 3, Pharmacy: [facility] #37, 166, cm, 05/03/22 14:21:00 EST, Height/Length Dosing, 61.2, kg, 05/03/22 14:21:00 EST, Weight Dosing Start Date: 05/03/22 Status: Orderedlevothyroxine (SYNTHROID, LEVOTHROID) 100 MCG tablet Take 125 mcg by mouth in the morning. Activeloratadine 10 mg oral tablet (13 sources)Start: 40-47-6085fmfi 1 tablet by mouth once dailyClaritin 10 mg Tab 10 mg, Oral, Daily, # 10 tab(s), Refills(s) 0, Pharmacy: [facility] #[facility], 166, cm, 12/05/19 13:03:00 EDT, Height/Length Dosing, 61.6, kg, 12/05/19 13:03:00 EDT, Weight Dosing Start Date: 12/05/19 Status: Ordered Quantity: 10.0 Unit: tab(s) Repeat number: 1magnesium oxide 400 mg oral tablet (5 sources)Start: 08-17-2024 End: 46-23-3688svmo 1 tablet by mouth once dailymagnesium oxide (Mag-Ox) 400 MG tablet Indications: Nonintractable headache, unspecified chronicitypattern, unspecified headache type Take 1 tablet (400 mg) by mouth Daily 30 tablet 6 08/17/2024 09/16/2024 Activephenazopyridine hydrochloride 200 mg oral tablet (4 sources)Start: 03-09-2023 End: 13-81-7042yqff 1 tablet by mouth three times dailyPyridium 200 mg Tab 200 mg = 1 tab(s), Oral, TID, X 3 day(s), # 9 tab(s), Refills(s) 0, Pharmacy: [facility] #37, 166, cm, 03/09/23 7:33:00 EST, Height/Length Dosing, 58.7, kg, 03/09/23 7:33:00 EST, Weight Dosing Start Date: 03/09/23 Stop Date: 03/12/23 Status: OrderedStart: 02-21-2023 End: 99-65-7791vekt 1 tablet by mouth three times dailyPyridium 200 mg Tab 200 mg = 1 tab(s), Oral, TID, X 3 day(s), # 9 tab(s), Refills(s) 0, Pharmacy: [facility] #37, 166, cm, 02/21/23 13:06:00 EST, Height/Length Dosing, 58.6, kg, 02/21/23 13:06:00 EST, Weight Dosing Start Date: 02/21/23 Stop Date: 02/24/23 Status: OrderedPNV no.95/ferrous fum/folic ac ( ORAL) (3 sources)PNV no.95/ferrous fum/folic ac ( ORAL) Take by mouth in the morning. ActivePNV no.95/ferrous fum/folic ac ( ORAL) Take by mouth daily. Activepolyethylene glycol 3350 480045 mg / potassium chloride 1480 mg / sodium bicarbonate 5720 mg / sodium chloride 23455 mg powder for oral solution (11 sources)Osmotic LaxativeStart: 31-08-8179IeZQGRCA Paige oral powder for reconstitution See Instructions, 1 EA, Refill(s) 0, Prior to colonoscopy., [facility] #[id number], 166, cm, 11/30/22 12:12:00 EDT, Height/Length Dosing, 58.8, kg, 11/30/22 12:12:00 EDT, Weight Dosing Start Date: 11/30/22 Status: Ordered Quantity: 1.0 Unit: EA Repeat number: 1Prenatal MV-Min-Fe Fum-FA-DHA ( 1 PO) (20 sources) MV-Min-Fe Fum-FA-DHA ( 1 PO) Take by mouth Active Completed/Discontinued Medications MedicationDrug Class(es)DatesSig (Normalized)Sig (Original)ibuprofen 800 mg oral tablet (2 sources)Nonsteroidal Anti-inflammatory DrugStart: 06-01-2021 End: 85-50-8227cmzs 1 tablet by mouth every eight hours as neededibuprofen (ADVIL,MOTRIN) 800 mg tablet Take 1 tablet (800 mg total) by mouth every 8 (eight) hours as needed (cramping). 30 tablet 06/01/2021 11/05/2024 Discontinued (Therapy completed)nitrofurantoin, macrocrystals 25 mg / nitrofurantoin, monohydrate 75 mg oral capsule (6 sources)Nitrofuran AntibacterialStart: 09-11-2024 End: 40-14-1279xxmm 1 capsule by mouth in the morningnitrofurantoin, macrocrystal-monohydrate, (Macrobid) 100 MG capsule Indications: Urinary tract infection without hematuria, site unspecified Take 1 capsule (100 mg) by mouth in the morning and 1 capsule (100 mg) before bedtime. Do all this for 7 days. 14 capsule 09/11/2024 09/18/2024 ExpiredStart: 02-21-2023 End: 74-42-2896sdto 1 capsule by mouth every twelve hoursMacrobid 100 mg Cap 100 mg = 1 cap(s), Oral, q12hr, X 5 day(s), # 10 cap(s), Refills(s) 0, Pharmacy: [facility] #[facility], 166, cm, 02/21/23 13:06:00 EST, Height/Length Dosing, 58.6, kg, 02/21/23 13:06:00 EST, Weight Dosing Start Date: 02/21/23 Stop Date: 02/26/23 Status: Orderedprogesterone (FIRST-PROGESTERONE VGS) 200 mg suppository (2 sources)Start: 03-26-2021 End: 14-12-0300ajpljzvebrmq (FIRST-PROGESTERONE VGS) 200 mg suppository Indications: Hypothyroid [...] Problems Problem ClassificationProblemDateDocumented DateEpisodic/ChronicAbdominal pain (13 sources)Abdominal wkaz12-27-3868VatfzuemRoiltrcuv infection; unspecified site (1 source)Infection due to Escherichia coli; Translations: [Unspecified Escherichia coli [E. coli] as the cause of diseases classified elsewhere]Onset: 57-65-8262CpybfvbdDpbtnfow or abnormal glucose tolerance complicating ; childbirth; or the puerperium (18 sources)History of gestational diabetes mellitus; Translations: [Gestational diabetes mellitus]Onset: 05-19-2021 Resolved: 006125-92-0555YmxtersqEyifgzkncxfgv symptoms and ill-defined conditions (4 sources)Dysuria; Translations: [Dysuria]Onset: 13-62-3587HuphpowyZxbvfswp; including migraine (13 sources)Migraine without cjbq52-51-6564NakbzdiKtvjzhpq; including migraine (6 sources)Headache; Translations: [Nonintractable headache, unspecified chronicity pattern, unspecified headache type]71-00-7391YhqtzitmAsfeqomimc during ; abruptio placenta; placenta previa (4 sources)Low lying placenta; Translations: [Low lying placenta NOS or without hemorrhage, unspecified trimester]Onset: 762494-22-1980VqsqlnvrJuywwzrymnz (15 sources)Hemorrhoids; Translations: [Unspecified hemorrhoids]Onset: 65-08-3604WymdumxlVbvuxzxiurmts and screening for infectious disease (4 sources)Encounter for screening for human papillomavirus (HPV); Translations: [Contact with and (suspected)exposure to infections with a predominantly sexual mode of transmission]Onset: 638690-43-1289TpcnjrnxPunrssdxlyrn; infection of eye (except that caused by tuberculosis or sexually transmitteddisease) (4 sources)Ajtwcsunm95-07-1768ZuqrcvifMpqfjbsqg disorders (15 sources)Dysmenorrhea; Translations: [Dysmenorrhea, unspecified]Onset: 903173-15-4921OaxhwlxKvehj complications of (5 sources)Endocrine, nutritional and metabolic diseases complicating , unspecified trimester; Translations: [ENDOCRN NUTR MET DZ COMP PG UNS TRI]Onset: 75-72-9622CiznpfvtNzrvx complications of (2 sources)Thyroid disease in mother complicating , childbirth AND/OR puerperium; Translations: [Endocrine, nutritional and metabolic diseases complicating , unspecified trimester]41-13-9679CnsyvflzLcgsm complications of (8 sources)Hypothyroidism in ; Translations: [Endocrine, nutritional and metabolic diseases complicating , unspecified trimester]Onset: 583667-10-5773QzxzloblFkykj complications of (3 sources)History of gynecological disorder; Translations: [Supervision of with other poor reproductive or obstetric history, unspecified trimester]Onset: 868708-14-8856WpnaubltSvqsm complications of (2 sources) size does not accord with dates; Translations: [Uterine size- date discrepancy, second trimester]85-80-6824VzmjbyjlVaixo endocrine disorders (4 sources)Liujekhlnhvt08-90-0112ZaityqeMgzbf eye disorders (4 sources)Eye jmvbegz77-02-2032BqneizdgDtwvh female genital disorders (4 sources)Lesion of fakgf80-24-3240HjtbfezgJtbmq female genital disorders (1 source)Noninflammatory disorder of vulva; Translations: [Other specified noninflammatory disorders of vulva and perineum]Onset: 05-08-1405BzqzgfwjAwhpt female genital disorders (2 sources)Vaginal discharge; Translations: [Other specified noninflammatory disorders of vagina]79-39-2863EqpwztmoTvrbr gastrointestinal disorders (4 sources)Cslkuakoqmxt38-86-2986MnhdqwoeGlhad gastrointestinal disorders (1 source)Digestive system finding; Translations: [Other specified symptoms and signs involving the digestivesystem and abdomen]Onset: 13-67-3088RskykvjlTnsky gastrointestinal disorders (1 source)Constipation, unspecified; Translations: [Constipation, unspecified] Onset: 46-62-5651IoedckemAhfew inflammatory condition of skin (4 sources)Pruritus ani; Translations: [Pruritus ani]Onset: 19-16-4708Ktsroibr Other lower respiratory disease (13 sources)H/O: respiratory xeotcuc27-02-1793XndaagpnLudhp nutritional; endocrine; and metabolic disorders (12 sources)Weight qfik00-84-3252ArrvpxmqCsguk nutritional; endocrine; and metabolic disorders (1 source)Abnormal weight loss; Translations: [Abnormal weight loss]Onset: 07-02-7886ZamzmdlkVthov and delivery including normal (20 sources)Encounter for supervision of normal first , first trimester; Translations: [Encounter for supervision of normal , unspecified, unspecified trimester]Onset: 30-67-3400JqtamubcRnbij screening for suspected conditions (not mental disorders or infectious disease) (13 sources)Encounter for screening for malignant neoplasm of cervix; Translations: [Encounter for screening, unspecified]Onset: 12-09-2020 EpisodicResidual codes; unclassified (3 sources)Body mass index 20-24 - normal; Translations: [Body mass index (BMI) 21.0-21.9, adult]Onset: 01-42-2039LalojwpjXlweoxai codes; unclassified (1 source)Family history of malignant neoplasm of digestive organ; Translations: [Family history of malignantneoplasm of digestive organs]Onset: 11-30-2022 EpisodicResidual codes; unclassified (11 sources)Family history of cancer of hhyki06-63-3336XqbzmddvKppndgjp codes; unclassified (4 sources)Family history of autism; Translations: [Family history of other mental and behavioral disorders]Onset: 113809-78-1822KqlswvqiBmfvaaoq codes; unclassified (2 sources)Gestation period, 13 weeks; Translations: [13 weeks gestation of ]47-26-4666HxookacmBtksxhuv codes; unclassified (15 sources)History of previous intrauterine growth restricted ; Translations: [Personal history of other complications of , childbirth and the puerperium]Onset: 365429-92-3823FtvlbrclRoqulofu codes; unclassified (2 sources)Gestation period, 17 weeks; Translations: [17 weeks gestation of ]35-61-2512RokdfhioOvcjfthk codes; unclassified (1 source)Gestation period, 20 weeks; Translations: [20 weeks gestation of ]71-74-5378SdvtvzhnFiwifdeu codes; unclassified (7 sources)History of premature rupture of membranes; Translations: [Personal history of other complications of , childbirth and the puerperium]Onset: 296047-30-1194IucrgfnkUctsfuio codes; unclassified (2 sources)Gestation period, 21 weeks; Translations: [21 weeks gestation of ]21-80-5333PyoubadgWgsfkirz codes; unclassified (2 sources)Personal history of other complications of , childbirth and the puerperium; Translations: [Personal history of other complications of , childbirth and the puerperium]Onset: 51-75-0225LgckwdbwHtvnjdbm codes; unclassified (1 source)20 weeks gestation of ; Translations: [20 weeks gestation of ]Onset: 29-77-0731TgugdnyvWcaqkhbj codes; unclassified (2 sources)Gestation period, 25 weeks; Translations: [25 weeks gestation of ]46-46-2674DviiffjlAitnscbj codes; unclassified (2 sources)Gestation period, 28 weeks; Translations: [28 weeks gestation of ]32-27-9526GuxmewfjDcvgnuww codes; unclassified (2 sources)Gestation period, 30 weeks; Translations: [30 weeks gestation of ]72-39-7368JnksqacjKcdwzdam codes; unclassified (2 sources)Gestation period, 32 weeks; Translations: [32 weeks gestation of ]46-88-7443VlrpwevyBvxzrbz disorders (20 sources)Hypothyroidism, unspecified; Translations: [Hypothyroidism]Onset: 93-96-7919RaofxgzFkqnuoi disorders (12 sources)Disorder of thyroid, unspecified; Translations: [Disorder of thyroid gland]Onset: 38-38-4138FjomuwpgTlwmetkcsrbg (13 sources)Body mass index 20-24 - -96-2300Dckbixhfpsyn (13 sources)Dxb-nqtvyx45-97wlxmmt86-72-3118Xwuhgvuzdamc (5 sources)Pain of knee -87-1710Zpvhcyfvrerz (8 sources)Patient encounter -26-1763Wluylpoaktgj (3 sources)Rectum hecrjks83-72-1443Btbdpjkcdprj (8 sources)Finding of sensation of jmhpdoj35-52-1325Kykvszfhvgvx (1 source)Hx previous FGROnset: 61-29-7372Zyjeapo tract infections (13 sources)Acute cystitis; Translations: [Acute cystitis without hematuria] Onset: 80-90-5632Bdsbfyfi Past or Other Problems Problem ClassificationProblemDateDocumented DateEpisodic/ChronicEarly or threatened labor (6 sources)Premature uterine contraction; Translations: [False labor before 37 completed weeks of gestation, third trimester]Onset: 04-21-2021 Resolved: 953297-34-3344LjqawzhaDgpoj complications of (3 sources)Disorder of ; Translations: [Maternal care for other known or suspected poor growth,unspecified trimester, not applicable or unspecified]Onset: 03-03-2021 Resolved: 659559-64-5156ZobjvqbaVbmac complications of (3 sources)Short cervical length in ; Translations: [Cervical shortening, third trimester]Onset: 05-19-2021 Resolved: 100234-31-3992IarmadgkUdkxd complications of (2 sources)Endocrine, nutritional and metabolic diseases complicating , second trimester; Translations: [Endocrine, nutritional and metabolic diseases complicating , second trimester]Onset: 32-19-4350QfmnawssPkmal female genital disorders (4 sources)Other specified noninflammatory disorders of vagina; Translations: [OTH SPEC NONINFLAMMATORY D/O VAGINA]Onset: 40-11-6141ApgbniuoHllchvnxyvtoci and other problems of amniotic cavity (3 sources) premature rupture of membranes ; Translations: [ premature rupture of membranes, unspecified as to length of time between rupture and onset of labor, unspecified trimester]Onset: 05-30-2021 Resolved: 725759-79-0774Jsvvldxk Results Test NameValueInterpretationReference RangeFacilityUrinalysis macro (dipstick) panel (U)on 24-46-4871Ybepkwjsh, UANegativeNegative - 4(70) +++ mg/dLNOMS HealthcareBlood, UANegativeNegative [...] mg/dLNOMS HealthcareNOMS HealthcareUrinalysis macro (dipstick) panel (U)on 82-46-0971Ksudtmtvb, UA NegativeNegative - 4(70) +++ mg/dLNOMS HealthcareBlood, [...] - 1.03N[facility] Healthcare Urobilinogen, UA0.20.2 - 12 mg/dLNOCA HealthcareNOMS HealthcareUS OB FOLLOW UP TRANSABDOMINAL APPROACHon 81-49-1117UG OB FOLLOW UP TRANSABDOMINAL APPROACH FINDINGS: A [...] Delivery: 03/23/25 Gestational Age as of 12/10/2024: 47p2pXhgymckseo macro (dipstick) panel (U)on 46-76-2318Zbpvrerpw, UANegativeNegative - 4(70) +++ mg/dLNOMS HealthcareBlood, UANegativeNegative - 50 Cedric/mcLNOMS HealthcareClarity, UAClearNOMS Healthcare Color, UAYellowNOMS HealthcareGlucose, UANegativeNegative - 2000(110) ++++ mg/dL NOMS HealthcareInterpretation and review of laboratory resultsNormalNOCA HealthcareKetones, UANegativeNegative - 160(16) ++++ mg/dLNOCA Healthcare Leukocytes, UANegativeNegative - 500+++ Ayana/mcLNOMS HealthcareNitrite, UA NegativeNegative - PositiveNOMS HealthcarepH, UA7.05 - 9NOMS HealthcareProtein, UANegativeNegative - 2000(20) ++++ mg/dLNOCA HealthcareSpec Grav, UA1.0101 - 1.03NOCA HealthcareUrobilinogen, UA0.20.2 - 12 mg/dLNOCenterPointe HospitalNOCA HealthcareGLUCOSE TOLERANCE 3 HOURon 39-63-0841YPHVUNC TOLERANCE 3 HOURHighmg/dL NOM HealthcareComment on above:GLU FAST 89 (<95) Col: 12/12/24 0842 GLU 1HR 178 (<180) Col: 12/12/24 0949 GLU 2HR 156H (<155) Col: 12/12/24 1041 GLU 3HR 103 (<140) Col: 12/12/24 1147 Interpretation and review of laboratory resultsAbnormalNOCA HealthcareCLINISYNC NOM HealthcareALL CBC WITH AUTO DIFFon 96-12-3866TZDMUGZKJ ABSOLUTE BRNS6KHBCCenterPointe HospitalBasophils/100 WBC (Bld)0.3 %0.2 - 2.0 %NOMS HealthcareEosinophils/100 WBC (Bld)0.5 %Low0.9 - 7.0 %[facility] Rehabilitation InstituteErythrocyte distribution width (RBC) [Ratio]12.4 %11.0 - 15.0 %NOMMissouri Rehabilitation CenterHematocrit (Bld) [Volume fraction]32.4 %Low36.0 - 48.0 %[facility] InstituteHemoglobin (Bld) [Mass/Vol]10.8 g/dLLow12.0 - 16.0 g/dLNOCenterPointe HospitalIMMATURE GRANULOCYTES ABS AUTO0.03NOCenterPointe Hospital Immature granulocytes/100 WBC (Bld)0.3 %0.0 - 0.5 %[facility] InstituteInterpretation and review of laboratory resultsAbnormalThe Rehabilitation InstituteLYMPHOCYTES ABSOLUTE AUTO1.3NOCenterPointe HospitalLymphocytes/100 WBC (Bld)14.4 %Low20.5 - 60.0 %[facility] CenterH (RBC) [Entitic mass]33.2 pg26.7 - 34.0 pgNOCenterPointe HospitalMCHC (RBC) [Mass/Vol]33.3 g/dL29.9 - 35.2 g/dLNOCA HealthcareMCV (RBC) [Entitic vol]99.7 fL High81.0 - 99.0 fLNOCA HealthcareMONOCYTES ABSOLUTE AUTO0.4NOM[facility] Healthcare Monocytes/100 WBC (Bld)4.6 %1.7 - 12.0 %NOMS HealthcareNEUTROPHILS ABSOLUTE AUTO 7HighNOCA HealthcareNeutrophils/100 WBC (Bld)79.9 %High43.0 - 75.0 %NOMS HealthcarePlatelet mean volume (Bld) [Entitic vol]10.5 fL9.5 - 13.5 fLNOCA HealthcareTBH EO #0NOMS HealthcareTBH [id number] HealthcareTBH RBC3.25LowNOMS HealthcareTBH WBC8.8NOCA HealthcareCLINISYNCNOMS HealthcareUrinalysis macro (dipstick) panel (U)on 76-28-3652Tkwuqcyny, UANegativeNegative - 4(70) +++ mg/dL NOMS HealthcareBlood, UANegativeNegative - 50 Cedric/mcLNOMS HealthcareClarity, UA ClearNOMS HealthcareColor, UAYellowNOMS HealthcareGlucose, UANegativeNegative - 1999(110) ++++ mg/dLNOMS HealthcareInterpretation and review of laboratory resultsNormalNOCA HealthcareKetones, UANegativeNegative - 160(16) ++++ mg/dLNOMS HealthcareLeukocytes, UANegativeNegative - 500+++ Ayana/mcLNOMS HealthcareNitrite, UANegativeNegative - PositiveNOMS HealthcarepH, UA75 - 9NOMS HealthcareProtein, UANegativeNegative - 2000(20) ++++ mg/dLNOMS HealthcareSpec Grav, UA1.011 - 1.03 NOMS HealthcareUrobilinogen, UA0.20.2 - 12 mg/dLNOCA HealthcareNOCA Healthcare Urinalysis macro (dipstick) panel (U)on 21-73-3309Wtxnvycmx, UANegativeNegative - 4(70) +++ mg/dLNOMS HealthcareBlood, UANegativeNegative - 50 Cedric/mcLNOMS HealthcareClarity, UAClearNOMS HealthcareColor, UAYellowNOMS HealthcareGlucose, UAPositiveNegative - 1999(110) ++++ mg/dLNOCA HealthcareInterpretation and review of laboratory resultsAbnormalNOMS HealthcareKetones, UANegativeNegative - 160(16) ++++ mg/dLNOCA HealthcareLeukocytes, UANegativeNegative - 500+++ Ayana/mcL NOM HealthcareNitrite, UANegativeNegative - PositiveNOMS HealthcarepH, UA65 - 9 NOMS HealthcareProtein, UANegativeNegative - 1999(20) ++++ mg/dLNOCA Healthcare Spec Grav, UA1.0151 - 1.03NOCA HealthcareUrobilinogen, UA1.00.2 - 12 mg/dLNOCA HealthcareNOCA HealthcareALL THYROID STIM HORMONEon 51-19-9353UOL Qn2.68 m[IU]/L [facility] Rehabilitation InstituteCLINISYNCNOMS HealthcareAFP, SERUM, OPEN SPINA BIFIDAon 51-46-2859DOY MOM0.82.[facility] Rehabilitation InstituteAFP VALUE34.7 ng/mL.[facility] HealthcareCOMMENT: Comment.[facility] Rehabilitation InstituteComment on above:Alie Moon, Ph.D., [facility] Director References: Available Upon Request. Multiples Of Median Cutoffs For AFP Elevations Murphy 2.5 Black 2.8 IDD 2.0 Twins 4.5 Abbreviation Definitions IDD - Insulin Dep Diabetes OSBR - Open Spina Bifida Risk For further inquiries contact [employer] [facility] at [phone]. This test was developed and its performance characteristics determined by [employer]. It has not been cleared or approved by the Food and Drug Administration. Performed at: [facility] [address], [place] [id number] Electric Tool Repairer: Pily Meraz [facility], Phone: [phone] GEST. AGE ON COLLECTION DATE17.3. weeksNOCA HealthcareGESTAT. AGE BASED ONLMP. [facility] HealthcareComment on above:Recalculations are not recommended when gestational dating by LMP and ultrasound are within 10 days. INSULIN DEP DIABETESNo.[facility] HealthcareINTERPRETATIONComment.[facility] Comment on above:Interpretation: Screen Negative This result [...] Customer Services to discuss available options. The [employer] recommends amniocentesis be offered to women age 35 and older. MATERNAL AGE AT EDD27.1. yrNOCA HealthcareMULTIPLE GESTATIONNo.[facility] Healthcare OSBR RISK 1 [id number].[facility] HealthcareRACECaucasian.[facility] HealthcareRESULTSReport. [facility] HealthcareTEST RESULTS:Negative.The Rehabilitation InstitutePpvzfhqqzjSTFUBD558. lbsNOCA HealthcarePREGNANCY N N LMP [id number] 2 17 N 1 Y 134 N N N N N White/ CLINISYNCNOCenterPointe HospitalUrinalysis macro (dipstick) panel (U)on 10-15-2024 Bilirubin, UANegativeNegative - 4(70) +++ mg/dLNOCA HealthcareBlood, UANegative Negative - 50 Cedric/mcLNOCA HealthcareClarity, UAClearNOCA HealthcareColor, UA YellowNOMS HealthcareGlucose, UANegativeNegative - 2000(110) ++++ mg/dLBLUE MOUNTAIN HOSPITAL, INC. HealthcareInterpretation and review of laboratory resultsNormalThe Rehabilitation Institute Ketones, UANegativeNegative - 160(16) ++++ mg/dLBLUE MOUNTAIN HOSPITAL, INC. HealthcareLeukocytes, UA NegativeNegative - 500+++ Ayana/mcLNOCA HealthcareNitrite, UANegativeNegative - PositiveNOCA HealthcarepH, UA65 - 9NOCA HealthcareProtein, UANegativeNegative - 2000(20) ++++ mg/dLNOCA HealthcareSpec Grav, UA1.0151 - 1.03NOCA Healthcare Urobilinogen, UA0.20.2 - 12 mg/dLLiberty Hospital HealthcareGLUCOSE 1 HOURon 93-87-1152Mfemxdh [Mass/Vol]108 mg/dLNINF - 130 mg/dLBLUE MOUNTAIN HOSPITAL, INC. HealthcareCLINISYNC The Rehabilitation InstituteALL MISCELLANEOUS TESTon 13-68-9233VNNLGOSWQCVCK TESTCOMMENT.[facility] HealthcareComment on above:Test Ordered: [id number] Parvovirus B19, Human, IgG/IgM Parvovirus B19, IgG 0.1 index BN Reference Range: 0.0-0.8 Negative <0.9 Equivocal 0.9 - 1.1 Positive >1.1 Parvovirus B19, IgM 0.1 index Reference Range: 0.0-0.8 Negative <0.9 Equivocal 0.9 - 1.1 Positive >1.1 Performed at: [address] [id number] Electric Tool Repairer: Darion Moon MD, Phone: [phone] Performed at: [address] [id number] Electric Tool Repairer: Madi Maloney PhD, Phone: [phone] Parvovirus B19 (Human), IgG, IgM CLINISYNCNOMS HealthcareALL MISCELLANEOUS TESTon 93-45-3837KGNTJQLLYECBR TEST COMMENT.NOMS HealthcareComment on above:Test Ordered: [id number] Parvovirus B19, Human, IgG/IgM Parvovirus B19, IgG 0.1 index Reference Range: 0.0-0.8 Negative <0.9 Equivocal 0.9 - 1.1 Positive >1.1 Parvovirus B19, IgM 0.1 index Reference Range: 0.0-0.8 Negative <0.9 Equivocal 0.9 - 1.1 Positive >1.1 Performed at: [address] [id number] Electric Tool Repairer: Darion Moon MD, Phone: [phone] Performed at: [address] [id number] Electric Tool Repairer: Madi Maloney PhD, Phone: [phone] Parvovirus B19 (Human), IgG, IgM CLINISYNCNOMS HealthcareALL CBC WITH AUTO DIFFon 63-57-0567HBRRUKZXZ ABSOLUTE AYLI3GXFC HealthcareBasophils/100 WBC (Bld)0.5 %0.2 - 2.0 %[facility] Eosinophils/100 WBC (Bld)0.5 %Low0.9 - 7.0 %NOMS HealthcareErythrocyte distribution width (RBC) [Ratio]12.3 %11.0 - 15.0 %NOMS HealthcareHematocrit (Bld) [Volume fraction]38.5 %36.0 - 48.0 %NOMS HealthcareIMMATURE GRANULOCYTES ABS AUTO0.02NOCA HealthcareImmature granulocytes/100 WBC (Bld)0.3 %0.0 - 0.5 % The Rehabilitation InstituteInterpretation and review of laboratory resultsAbnormalNOCA HealthcareLYMPHOCYTES ABSOLUTE AUTO1.6NOMS HealthcareLymphocytes/100 WBC (Bld)21 %20.5 - 60.0 %[facility] CenterH (RBC) [Entitic mass]33.5 pg26.7 - 34.0 pgSaint Louis University Health Science CenterHC (RBC) [Mass/Vol]35.6 g/bXMmlk05.9 - 35.2 g/dLSaint Louis University Health Science CenterV (RBC) [Entitic vol]94.1 fL81.0 - 99.0 fLThe Rehabilitation InstituteMONOCYTES ABSOLUTE AUTO 0.4NOMS HealthcareMonocytes/100 WBC (Bld)5.1 %1.7 - 12.0 %[facility] NEUTROPHILS ABSOLUTE AUTO5.6NOCenterPointe HospitalNeutrophils/100 WBC (Bld)72.6 %43.0 - 75.0 %The Rehabilitation InstitutePlatelet mean volume (Bld) [Entitic vol]11.1 fL9.5 - 13.5 fLThe Rehabilitation InstituteTBH EO #0NOCenterPointe HospitalTBH XAE332QROICox North RBC4.09Low [facility] WBC7.8The Rehabilitation InstituteCLINISYNCCBC and differentialon 78-09-2309Txpkdufixp (Bld) [Volume fraction]39 %36 - 46 %[facility] Platelets (Bld) [#/Vol]211 10*3/uL150 - 399 10*3/uLProMedica Health SystemWBC (Bld) [#/Vol]7.8 10*3/mL3.3 - 10.0 10*3/mLRockingham Memorial HospitalMedica [facility] SystemDrug Screen, Urineon 01-86-8201Kmlxbwqmhhw/MethamphetamineNegativeProMedica Health System BarbituratesNegativeProMedica Health SystemBenzodiazepinesNegativeProMedica Health SystemCocaine MetaboliteNegativeRockingham Memorial HospitalMedica Health SystemMethadoneNegative ProMedica Health SystemOpiatesNegativeRockingham Memorial HospitalMedica Health SystemOxycodoneNegative Pro[facility] Health SystemPhencyclidineNegativeProMedica Health SystemThc Marijuana, UrineNegativeWadsworth-Rittman HospitalHBV surface Ag IA Qlon 08-21-2024 Hepatitis B Surface AntigenNegativeWadsworth-Rittman HospitalHCV Ab IA Qlon 44-34-0541CBO Ab Ql (S)Non-ReactiveWadsworth-Rittman HospitalHIV 1+2 Ab+HIV1 p24 Ag IA Qlon 36-39-6849QIK 1&2 AB/AGNon-ReactiveWadsworth-Rittman HospitalHemoglobin A1con 74-34-0572QiJ2k (Bld) [Mass fraction]5.6 %4.0 - 6.0 %W[facility]sworth-Rittman HospitalLaboratory - Hematology and Cell countson 67-93-5091Cqlceygbhw (Bld) [Mass/Vol]13.7 g/dL12.0 - 16.0 g/dLThe Rehabilitation InstituteNo Panel Informationon 67-12-6337XGEA HealthcareRubella IGG immune statuson 74-70-7042Camcoje immune IgGimmuneWadsworth-Rittman HospitalT. pallidum IgG+IgM IA Ql (S)Ordered By: Nadira Salazar on 74-62-3513BvxgvydaCqs-ReactiveWadsworth-Rittman HospitalTSHon 11-12-6352Zfxbodk Stimulating (3Rd Generation) Hormone/ Tsh7.721PAdena Health SystemType and screenon 34-43-5680Bkd/Rh(D)PositiveWadsworth-Rittman HospitalHCG ( test) Ql (U)on 55-17-2111Uuforsopdknmwd and review of laboratory resultsAbnormalThe Rehabilitation InstitutePreg Test, UrPositiveNegativeLiberty Hospital HealthcareUS OB TRANSVAGINALon 98-54-9597CE OB TRANSVAGINALEXAM: US OB TRANSVAGINAL HISTORY: Dating. [...] II, MD, PHD at 20-Aug-2024 10:22:40 AM [facility] TeleradiologyNormalNot AvailableComment on above:Order Comment: US OB TRANSVAGINAL No LMP recorded.Urinalysis macro (dipstick) panel (U)on 25-15-9133Nhifnvsne, UA NegativeNegative - 4(70) +++ mg/dLNOMS HealthcareBlood, [...] - 12 mg/dLNOMS HealthcareNOMS HealthcareAmbulatory Visit Summaryon 51-23-4671Qmupgxqjtp Visit SummaryAmbulatory Visit Summary YANA CHURCH :2000 [...] 8:40 AM EDT With: Marta Rivas Where: [facility] [address] [place] [address], [address] [place] [id number] Medications What How Much When Why Instructions [...] you for choosing us for your care. [facility] Medicine Office/Clinic Noteon 64-35-8308Uhgpuz Medicine Office/Clinic NoteFawestborough behavioral healthcare hospital Medicine Office/Clinic Note Chief Complaint Establish [...] anymore, managed with tylenol Social History: Occupation: [employer] Family life: home with and daughter Diet: no restrictions Caffeine: 1 cup coffee/day Exercise: active lifestyle Alcohol use: denies Drug use: denies Smoking status: denies Health Maintenance: Routine labs: thyroid labs 06/2024, declines further labs Pap (21-64yo): 04/2023 Specialists: Book Mender: krysta Dentist: krysta OBGYN: Joanna Review of [...] other medications. Recheck TSH/T (more content not included)...[facility] Comment on above:Result Comment: Electronically Signed By: Marta Rivas\.br\Date and Time Signed: 07/09/24 08:35 EDTAmbulatory Visit Summaryon 54-24-5801Rmsujldgjw Visit SummaryAmbulatory Visit Summary YANA CHURCH :2000 [...] 8:00 AM EDT With: Marta Rivas Where: [facility] [address] [facility], [facility] [place] [address]- Medications What How Much When Why Instructions New amoxicillin-clavulanate (Augmentin 875 mg-125 mg Tab) 1 Tablets By Mouth Every 12 hours Acute sinusitis Duration: 10 Days Pickup at [facility] Unchanged levothyroxine (Synthroid 100 mcg Tab) 1 Tablets By Mouth Every day Pharmacy Information [facility]: [address] [place], [place] [phone] Allergies No Known Allergies Problems Ongoing - [...] you for choosing us for your care. [facility] Medicine Office/Clinic Noteon 78-30-0133Dnobmn Medicine Office/Clinic NoteFawestborough behavioral healthcare hospital Medicine Office/Clinic Note Chief Complaint possible [...] for 10 day(s), 20 tab(s), Refill(s) 0, [facility], 166, cm, 07/05/24 15:34:00 EDT, Height/Length [...] When Contact Information Julienne BARTLETT, Ham Montano, [facility], [address], [address] [phone] Additional Instructions: as scheduled with Marta Patient Education Sinus Infection, Adult, Gsro-tj-Rzjb How to Perform a Sinus Rinse, Pfux-op-Xubi Problem List/Past Medical History Ongoing Acute sinusitis [...] poliovirus vaccine, inactivated (more content not included)...Normal [facility] CenterComment on above:Result Comment: Electronically Signed By: Julienne BARTLETT, Ham Montano\.br\Date and Time Signed: 07/05/24 16:06 EDT CHEMISTRYOrdered By: SYSTEM SYSTEM on 92-82-0785Kqid T4 [Mass/Vol]0.82 ng/dL Normal0.58 - 1.64 ng/dLRemisol ChemTSH Qn3.09 m[IU]/LNormal0.34 - 5.60 mcIU/mL Remisol ChemFree T4on 36-82-0827Clzf T4 [Mass/Vol]0.82 ng/dLNormal0.58-1.64 [facility] Medical CenterComment on above:Performed By: #### [id number] #### [facility] [address] [place], [place] [address]LLRcd 62-13-0423VEI Qn3.09 m[IU]/LNormal0.34-5.60[facility] Medical CenterComment on above:Performed By: #### [id number] #### [facility] [address], [place] [address]LSE EXTRACTION AND HOLDon 23-56-5842JgkxkdOwbkto Puregene Reagents from QiagenInvalid Interpretation [facility] on above:Order Comment: Release to patient->AutomaticNucleic Acid Concentration 273.2 ng/uLInvalid Interpretation [facility] on above: Order Comment: Release to patient->AutomaticNucleic Acid Purity1.90Invalid Interpretation Code1.70-2.10[facility] on above:Order Comment: Release to patient->AutomaticSignature .Invalid Interpretation [facility] on above:Order Comment: Release to patient->AutomaticStorage and Special InstructionsInvalid Interpretation [facility] on above:Order Comment: Release to patient->AutomaticResult Comment: The extracted DNA is stored in the [facility] at -70 degrees C and is being held for future testing. If there are any questions regarding this sample, please contact the [facility] at [phone].Total DNA Yield82.0 ugInvalid Interpretation [facility] on above:Order Comment: Release to patient->AutomaticTotal Volume EUU314 ulInvalid Interpretation Code [facility] on above:Order Comment: Release to patient->AutomaticIGP,APTIMA HPV,AGE GDLNon 06-90-7649QSK GDLN ACOG TESTINGNote. NOMS HealthcareComment on above:TESTS RESULT FLAG UNITS REF RANGE LAB Clinician Provided Cytology Information Source.............Cervix;Endocervix No. of containers..01 ThinPrep Vial Age Maicolo ACOG Francheska... FLAG LEGEND: L-Low Normal,H-High Normal,LL-Alert Low,HH-Alert High <-Panic Low,>-Panic High,A-Abnormal,AA-Critical Abnormal Performed at: 01 = Lab[address] [place] [address] Sugey Torres MD, IGP, RFX APTIMA HPV ASCUNote.[facility] HealthcareComment on above:TESTS RESULT FLAG UNITS REF RANGE LAB DIAGNOSIS: 02 NEGATIVE FOR INTRAEPITHELIAL LESION OR MALIGNANCY. Specimen adequacy: 02 Satisfactory for evaluation. Endocervical and/or squamous metaplastic cells (endocervical component) are present. Performed by: 02 Yudy Rhoades, Wafer Fab Operator ([facility]) . 02 Note: Note 02 The [...] <-Panic Low,>-Panic High,A-Abnormal,AA-Critical Abnormal Performed at: [address] [address] Sugey Torres MD, Performed at: = - [facility] [address] [id number] Electric Tool Repairer: Sugey Torres MD, Phone: [phone] Performed at: - [facility] [id number] Electric Tool Repairer: Sugey Torres MD, Phone: [phone] BRUSH-SPATULA CERVIX ENDOCERVIX CLINISYNCNOMS HealthcareCoding Summary.on 60-38-9488Bquuct Summary. ZVEHLxzp58ZMo1tGd+PGhlYWQ+IC2ENKLdR70lgTMxxU6sP0SJABhQOjllVIKQWExUAsKzbaIzYZ5piI NjZXJu [file] H04sqPShr5M4G (more content not included)...NormalU[facility] Medical Center CHEMISTRYOrdered By: SYSTEM SYSTEM on 22-19-9248Gnpu T4 [Mass/Vol]0.92 ng/dL Normal0.58 - 1.64 ng/dLRemisol [facility] Qn3.37 m[IU]/LNormal0.34 - 5.60 mcIU/mL Remisol ChemConsent for Treatmenton 25-49-6795Dgzgyvt for Treatment [id number]#1.00TIFFNormalUc Medical CenterFree T4on 63-50-7998Iaej T4 [Mass/Vol]0.92 ng/dLNormal0.58-1.64[facility] Medical CenterComment on above:Performed By: #### [id number] #### Barry [facility] [address] [place] [address]GFSgf 10-40-9979XXV Qn3.37 m[IU]/LNormal0.34-5.60[facility] Medical CenterComment on above:Performed By: #### [id number] #### Jhonny [facility] [address] [place], [place] [address]Roarkmtaqi Visit Summaryon 62-46-0530Acuyfeoitw Visit Summary YANA CHURCH :2000 Visit Date:08/08/2023 [...] you for choosing us for your care. [facility] Medicine Office/Clinic Noteon 11-86-1051Gtpnga Medicine Office/Clinic NoteChief Complaint f/u for hypothyroid [...] Unspecified hemorrhoids) Resolved, no additional complaints. saw [facility] for screening colonoscopy/diagnostic colonoscopy due to constipation [...] with voice recognition artificial intelligence software, specifically [employer], [employer] and or [employer]. Substitutions may have occurred due to the [...] Social History Alcohol Curren (more content not included)...[facility] HospitalComment on above:Result Comment: Electronically Signed By: [...] Follow these instructions at home: ? Take wevd-emd-akgcflf and prescription medicines only as told by [...] provider. Document Revised: 03/09/2022 Document Reviewed: 03/09/2022 [employer] Patient Education ? 2022 [place]. Gastroenterology Hemorrhoids Hemorrhoids are swollen veins in and around the rectum or anus. There are two types of hemorrhoids: ? Internal hemorrhoids. These occur in the veins that are just inside the rectum. They may poke through to the outside and become irritated and painful. ? External hemorrhoids. These occur in the veins that are (more content not included)...NormalUc Medical CenterPAP 324030og 05-20-2023. trachomatis rRNA FRANSSICO+probe Ql (Cvx)NegativeInvalid Interpretation CodeNegative [facility] Medical CenterComment on above:Performed By: #### [id number] ####[facility] Mzybrvhmpd957 [facility] Parkwayradhacatskill regional medical centeramerico [id number] Cytology report Cyto stain Doc (Cvx/Vag)NoteInvalid Interpretation [facility] SystemComment on above:Result Comment: TESTS RESULT FLAG UNITS REF RANGE LAB Clinician Provided Cytology Information Source.............Cervix No. of containers..01 ThinPrep Vial DIAGNOSIS: 01 NEGATIVE FOR INTRAEPITHELIAL LESION OR MALIGNANCY. Specimen adequacy: 01 Satisfactory for evaluation. Endocervical and/or squamous metaplastic cells (endocervical component) are present. Performed by: 01 Erum Mckenzie, Wafer Fab Operator ([facility]) . 01 Note: Note 01 The [...] <-Panic Low,>-Panic High,A-Abnormal,AA-Critical Abnormal Performed at: [address] [address] Sugey Torres MD, Yybqasthv By: #### [id number] ###Tunde [facility] Tqvtdxdgok[address], [id number] 16+18+31+33+35+39+45+51+52+56+58+59+66+68 DNA Probe+sig amp Ql (Cvx)Negative Invalid Interpretation CodeNegativeFisher [facility]c Western MarylandComment on above: Result Comment: This nucleic acid amplification test detects fourteen high-risk HPV types (16,18,31,33,35,39,45,51,52,56,58,59,66,68) without differentiation.Performed By: #### [id number] ####Barry [facility] Rjzxyqmttg969 [facility], PB[address]J. gonorrhoeae rRNA FRANSISCO+probe Ql (Cvx) NegativeInvalid Interpretation CodeNegDelaware County HospitalComment on above:Performed By: #### [id number] ####Barry [facility] Agdwvmdtxl210 [facility] [id number]. vaginalis rRNA FRANSISCO+probe Ql (Unsp spec)NegativeInvalid Interpretation CodeNegativeUc Medical Center Comment on above:Result Comment: Performed at: [facility] [address] [place], [place] [id number] MD Brian Mayes Performed at: =G [facility] [place] [address] [place], [place] [id number] MD Brian MayesPerformed By: #### [id number] ####[facility] U[address] [place] [address] [id number] Medicine Office/Clinic Noteon 58-48-3361Zgwsrw Medicine Office/Clinic NoteChief Complaint Pap, f/u UTI [...] was performed without the assistance of medical language specialist as witness Pelvic Exam: Vulva: normal appearance, [...] up every 3-5 years based on results ROLL CHANGER referral if needed for further testing or [...] placed F/u 6 months (more content not included)...NormalU[facility] Medical Center Comment on above:Result Comment: Electronically Signed By: Ya Wang\.irvin\Date and Time Signed: 05/16/23 15:38 ESTPAP 172046wo 05-16-2023 Gynecological Body SiteCERVIXNormalUc Medical CenterComment on above: Performed By: #### [id number] ####Jhonny [facility] Qtrtvooxly[address] [id number] Educationon 70-20-4447Ewtajep Education Obstetrics and Gynecology Pap Test Why [...] including vitamins, herbs, eye drops, creams, and dyow-oyu-bxjtlzb medicines. ? Any bleeding problems you have. [...] provider. Document Revised: 06/05/2021 Document Reviewed: 06/05/2021 [employer] Patient Education ? 2022 [employer]. Oncology Cancer Screening for Women A cancer [...] to asbestos. How i (more content not included)...NormalUc Medical CenterConsent for Treatmenton 20-77-8050Zfhioub for Treatment [id number]#1.00TIFFNormalUc Medical CenterUA With Cult Reflexon 82-31-6274Oasxopjhr Ql (U)NegativeNormalNegative [facility] Medical CenterComment on above:Performed By: #### [id number] ####[facility] [address]lqjzptzne158 [place] [address] Clarity (U)CLEARNormalClearUc Medical CenterComment on above:Performed By: #### [id number] ####[address] [address] [place], [place] [address]Lhppl (U)YELLOWNormalYellowUc Medical Center Comment on above:Performed By: #### [id number] ####[facility] Ywsqmclkrf733 [place], [place] [address]Kjbbnjvsly cells.squamous LM.HPF (Urine sed) [#/Area]4-0Zvlpbu5-4Veysgp [facility] MarylandComment on above: Performed By: #### [id number] ####[facility] Scfenqswiz500 [place], [place] [address]Efcwkkp Test strip (U) [Mass/Vol]NegativeNormal NegativeUc Medical CenterComment on above:Performed By: #### [id number] ####[facility] Qdacjxtlwg331 [place] [address] Hemoglobin Ql (U)NegativeNormalNegativeUc Medical CenterComment on above:Performed By: #### [id number] ####[facility] Bjlujdepmc753 [place], [place] [address]Ifmkijq (U) [Mass/Vol]NegativeNormalNegDelaware County HospitalComment on above:Performed By: #### [id number] ####[address] [address] Haysi.plasma/Haysi.RBC (Bld) [Mass ratio]9-9Dtldnl5-5Mndhnz [facility] MarylandComment on above:Performed By: #### [id number] ####[address] [address]Zovwgzi Ql (U)NegativeNormal NegativeUc Medical CenterComment on above:Performed By: #### [id number] ####[address] [address]rI (U)6.0 [pH]Invalid Interpretation Code5.0-9.0Uc Medical CenterComment on above:Performed By: #### [id number] ####[address] [address]Jvduwpq (U) [Mass/Vol]NegativeNormal NegativeUc Medical CenterComment on above:Performed By: #### [id number] ####[address] [address] Specific gravity (U) [Rel density]>=1.030Invalid Interpretation Code1.005-1.030 [facility] Medical CenterComment on above:Performed By: #### [id number] ####[address] [address]Eina of Urine collection methodClean CatchNormalUc Medical CenterComment on above:Performed By: #### [id number] ####[address] [address]Eyfftqiycyit Qn (U)0.2 {Mehdi'U}/dLNormal0.0-1.0 [facility] Medical CenterComment on above:Performed By: #### [id number] ####[address] [address]KRR Auto Ql (U)NegativeNormalNegativeUc Medical CenterComment on above: Performed By: #### [id number] ####[address] [place], [place] [address]UPX LM.HPF (Urine sed) [#/Area]6-0Zqzmdq9-9Zppceq [facility] MarylandComment on above:Performed By: #### [id number] ####Jhonny [facility] Bnrstirobi304 [place], [place] [address]VSSHNMPUUV Ordered By: Alphonso Wang on 26-41-9615Qwihagbgr Ql (U)Negative (03/24/23 11:15 AM)NormalNegativeHILLCREST [facility] UA Auto SSClarity (U)Clear (03/24/23 11:15 AM)NormalClearFINTEGRIS [facility] [place] UA Auto SSColor (U)Yellow (03/24/23 11:15 AM)NormalYellowHILLCREST HOSPITAL [facility] UA Auto SSEpithelial cells.squamous LM.HPF (Urine sed) [#/Area]0-2 /HPFNormal0-2/HPFHILLCREST HOSPITAL [facility] UA Auto SSGlucose Test strip (U) [Mass/Vol]Negative (03/24/23 11:15 AM)NormalNegativeHILLCREST HOSPITAL [facility] UA Auto SSHemoglobin Ql (U)Negative (03/24/23 11:15 AM)NormalNegativeHILLCREST HOSPITAL [facility] UA Auto SSKetones (U) [Mass/Vol]Negative (03/24/23 11:15 AM)NormalNegativeHILLCREST HOSPITAL [facility] UA Auto SSLithium.plasma/Haysi.RBC (Bld) [Mass ratio]0-3 /HPFNormal0-3/HPFHILLCREST HOSPITAL [facility] UA Auto SSNitrite Ql (U)Negative (03/24/23 11:15 AM)NormalNegativeHILLCREST HOSPITAL [facility] UA Auto SSpH (U)6.0 *NA* (03/24/23 11:15 AM)Invalid Interpretation Code5.0 - 9.0[facility] UA Auto SSProtein (U) [Mass/Vol]Negative (03/24/23 11:15 AM)NormalNegativeHILLCREST HOSPITAL [facility] UA Auto SSSpecific gravity (U) [Rel density] >=1.030 *NA* (03/24/23 11:15 AM)Invalid Interpretation Code1.005 - 1.030H[facility] UA Auto SSUA Spec DescClean Catch (03/24/23 11:15 AM)NormalHILLCREST HOSPITAL [facility] UA Auto SSUrobilinogen Qn (U)0.9650829 {Mehdi'U}/dLNormal0.0 - 1.0 EU/dLHILLCREST HOSPITAL [facility]USH[facility] UA Auto SSWBC Auto Ql (U)Negative (03/24/23 11:15 AM)NormalNegativeHILLCREST HOSPITAL [facility] UA Auto SSWBC LM.HPF (Urine sed) [#/Area]0-5 /HPFNormal0-5/HPFHILLCREST HOSPITAL [facility] UA Auto SST3 Freeon 69-17-4716Mhpp T3 [Mass/Vol]2.9 pg/mL Invalid Interpretation Code2.0-4.4Fisher [facility] MarylandComment on above: Result Comment: Performed at: [facility] [address] [id number] PhD Haider BarrazaPerformed By: #### [id number], [id number], [id number] ####Barry [facility] Atvxoymbgw207 [place], [place] [address]FW Retroperitoneal Completeon 14-29-8047DY Retroperitoneal CompleteExam Date/Time: 03/22/2023 09:49 EST Reason [...] Taylor MD Transcribed by: RAZIA Technologist: Hussain [facility] MarylandCHEMISTRY Ordered By: SYSTEM SYSTEM on 62-72-4293Qxpu T4 [Mass/Vol]1.10 ng/dLNormal0.58 - 1.64 ng/dLRemisol ChemTSH Qn0.90 m[IU]/LNormal0.34 - 5.60 mcIU/mLRemisol Chem Consent for Treatmenton 43-19-0350Ynfqjlm for Treatment [id number]#1.00TIFFBrown Memorial HospitalFree T4on 96-37-7759Tvgk T4 [Mass/Vol]1.10 ng/dLNormal0.58-1.64Uc Medical CenterComment on above:Performed By: #### [id number], [id number], [id number] ####[facility] Ds[address]obwdcd192 [place], [place] [address]ZZBjh 00-84-1749NUC Qn0.90 m[IU]/LNormal0.34-5.60[facility] Medical CenterComment on above:Performed By: #### [id number], [id number], [id number] ####[facility] [address] [place] [address]V Urineon 53-99-0742Dsxiqtuo identified Cx Nom (U)Microbiology PROCEDURE: Urine Culture [...] Locations R1: This test was performed at: [facility], [address] [place] [address], [id number] [place] [address], BlrgenLkpjhyBrown Memorial HospitalComment on above:Performed By: #### [id number] ####Barry [facility] Tjjwbwaumi[address] Ashtoncatskill regional medical centeramericoCRAWFOR[place], [place] [address]Rgzckp Medicine Office/Clinic Noteon 25-13-5569Hzskbi Medicine Office/Clinic NoteChief Complaint 2 wk f/u [...] due to her gallbladder. She saw a clinical data coordinator in 11/2022. She is able to schedule [...] office today shows: Negat (more content not included)...[facility] HospitalComment on above:Result Comment: Electronically Signed By: Ya Wang\.br\Date and Time Signed: 03/11/23 06:06 EST\.br\Electronically Co-Signed By: Annetta Blackburn\.br\Date and Time Co-Signed: 03/09/23 12:22 ESTAmbulatory Visit Summaryon 30-90-7910Pfhlwaiwls Visit Summary YANA CHURCH :2000 Visit Date:03/09/2023 Ambulatory Visit Instructions Your Diagnosis BMI 21.0-21.9, adult Feeling of incomplete bladder emptying Other cystitis with hematuria Hypothyroidism Tests Performed Urnls Dip Stick Auto w/o Microscopy POC 97278 Your Care Team Attending Physician - Ya [...] 10:00 AM EDT With: Ya Wang [facility] ([facility]inary tract infection), pp_set_radiology_subspecialty, [facility]\.br\ Medicati ons\.br\ What How Much When Why Instructions\.br\ New cephalexin (Keflex 500 mg Cap) 1 Capsules By Mouth 4 times a day Feeling of incomplete bladder emptying Recurrent UTI (urinary tract infection) Duration: 7 Days Pickup at [facility]\.br\ New phenazopyridine (Pyridium 200 mg Tab) 1 Tablets By Mouth 3 times a day Feeling of incomplete bladder emptying Recurrent UTI (urinary tract infection) Duration: 3 Days Pickup at [facility]\.br\ Unchanged levothyroxine (Synthroid 112 mcg [...] instructions Prior to colonoscopy. \.br\ Pharmacy Information\.br\ [facility]: [address] [place], [place] [id number] [phone]\.br\ Test Results\.br\ Urnls Dip Stick Auto w/o Microscopy POC 78689 (03/09/2023)\.br\ Bilirubin Urine Dipstick - Negative\.br\ Blood Urine Dipstick - Trace-intact\.br\ Glucose Urine Dipstick - Negative\.br\ Ketones UrineDipstick - Negative\.br\ Leukocytes Urine Dipstick - Trace\.br\ Nitrite Urine Dipstick - Negative\.br\ Protein Urine Dipstick - Negative\.br\ Specific Ducor Urine Dipstick - 1.020\.br\ Urine Appearance Urine [...] including vitamins, herbs, eye drops, creams, and brda-ehg-gejdluy medicines.\.br\ ? \.br\ Whether you are or [...] nerves are communicating with your muscles.\.br\ What [facility] Medical CenterPatient Educationon 73-25-0028Wwnbovp Education Endocrinology Hypothyroidism Hypothyroidism is when the [...] Follow these instructions at home: ? Take jxqe-hog-owthpqt and prescription medicines only as told by [...] provider. Document Revised: 03/09/2022 Document Reviewed: 03/09/2022 [employer] Patient Education ? 2022 [place]. Obstetrics and Gynecology Urinary Tract Infection, Adult A urinary tract infection (UTI) is an infection of any part of the urinary tract. The urinary tractincludes the kidneys, ureters, bladder, and urethra. These organs make, store, and get rid of urinein the body. An upper UTI affects the ureters and kidneys. A lower UTI affects the bl (more content not included)...[facility] HospitalPhysician Referralon 59-90-5711Yfjqyxtaf [id number]#1.00TIFF [facility] HospitalProvider Letteron 46-64-1819Qiltssqf Letter March 02, 2023 YANA CHURCH [address] [place] [id number] : [address] Clay Waters is know on your insurance & we are able to schedule your EGD & Colonoscopy. Please call us at [phone] at your [facility] convenience to schedule your procedure. Thank you for your prompt attention to this matter. Sincerely, [facility] CenterRemen[facility] 03-02-2023 Reminders From: Erum Gold To: [facility] - Reminders/Recalls; Sent: 11/30/2022 12:34:03 EDT Show up: 11/30/2022 12:34:00 EDT Subject: Ambulatory Reminder [employer] Reminder/Recall Call pt and scheduled EGD and Colonoscopy with Dr. Williamson once [employer] is approved. From: Rusty Alfred ([facility] - Reminders/Recalls) To: Yue Perez; [...] letter to patient to call office to [facility] Urineon 16-10-6802Tbjagxzz identified Cx Nom (U)Microbiology PROCEDURE: Urine Culture [...] Locations R1: This test was performed at: [facility], [address] [place] [address], [facility] , , TkoudlUdiaylBrown Memorial HospitalComment on above:Performed By: #### [id number] ####[facility] [address] [place] [address] Medicine Office/Clinic Noteon 44-09-8314Xwmjol Medicine Office/Clinic NoteChief Complaint UTI symptoms HPI [...] color was orange in appearance due to kbtb-ala-rjubobp meds she was taking, normal urobilinogenpH 5.5 [...] day(s), # 10 cap(s), Refills(s) 0, Pharmacy: [facility], 166, cm, 02/21/23 13:06:00 EST, Height/Length Dosing, 58.6, kg, 02/21/23 13:06:00 EST, Weight Dosing phenazopyridine, 200 mg = 1 tab(s), Oral, TID, X 3 day(s), # 9 tab(s), Refills(s) 0, Pharmacy: [facility], 166, cm, 02/21/23 13:06:00 EST, Height/Length Dosing, 58.6, kg, 02/21/23 13:06:00 EST, Weight Dosing Urine Culture Urnls Dip Stick Auto w/o Microscopy POC 12825 2. Acute cystitis (N30.00: Acute cystitis without hematuria) #1 3. Constipation in female (K59.00: Constipation, unspecified) improving. occasional Colace OTC and Miralax 4. Hemorrhoids (K64.9: Unspecified hemorrhoids) improving, stable 5. Hypothyroidism (E03.9: Hypothyroidism, unspecified) Chronic Stable with 112 mcg daily of Synthroid _ control Weight is stable Asymptomatic- noteable tachycardia today Du (more content not included)...[facility] Memorial HospitalComment on above:Result Comment: Electronically Signed By: [...] these instructions at home: Medicines ? Take sesf-ufa-wuofaht and prescription medicines only as told by [...] provider. Document Revised: 10/17/2020 Document Reviewed: 10/17/2020 [employer] Patient Education ? 2022 [place].[facility] Ambulatory Visit Summaryon 34-78-4976Bedifwkjol Visit Summary LILIANAYANA MONTENEGRO :2000 Visit Date:11/30/2022 [...] 1:00 PM EST With: Ya Wang [facility] Gastroenterology Office/Clinic Noteon 64-74-6465Qbyigoyesswzfqse Office/Clinic NoteChief Complaint constipation HPI Staff Patient [...] Refill(s) 0, Prior to colonoscopy., [facility][id number], 166, cm, 11/30/22 12:12:00 EDT, Height/Length Dosing, [...] rhinitis Hypoglycemia Hypothyroidism Left (more content not included)...[facility] Memorial HospitalComment on above:Result Comment: Electronically Signed By: Daniel Gray CNP\.br\Date and Time Signed: 11/30/22 12:32 EDTPatient Educationon 92-69-5392Excgmco EducationGastroenterology High-Fiber Eating Plan Fiber, also called [...] Bulgur wheat. Millet. Quinoa. Bran muffins. Popcorn. [place] wafer crackers. Meats and other proteins [place] beans, kidney beans, and díaz beans. Soybeans. [...] Cream cheese. Sour cream. Fats and oils [place]. Beverages Soft drinks. Other foods Cakes and [...] care provider. Document Revised: (more content not included)...[facility] HospitalPre-Certification Formon 51-28-9260Fis-Certification Form [id number]#1.00CD:127NormalUc Medical CenterFawestborough behavioral healthcare hospital Medicine Office/Clinic Noteon 45-67-2210Byzfpp Medicine Office/Clinic NoteChief Complaint pt here for [...] visit we encourage proper diet and exercise ogcx-bbo-yohyqbz MiraLAX or Colace with Preparation H puio-lij-bzzlqmt, bleeding has stopped, blood noted on toilet [...] exam was performed, I did offer supervisor nutritional yeast but patient declined, external anus is normal [...] length of time on toilet, sitz bath's, hvzz-byh-ssqscin medications and suppositories and creams Hydrocortisone lidocaine with applicator gel ordered today to use twice daily Referral for GI referral placed today Ordered: hydrocortisone-lidocaine topical, 1 carmen, Rectal, BID, 60 EA, Refill(s) 1, [facility], 166, cm, 11/11/22 9:28:00 EDT, Height/Length Dosing, 59.4, kg, 11/11/22 9:28:00 EDT, Weight Dosing [facility] Internal Ambulatory Referral 2. Hypothyroidism (E03.9: Hypothyroidism, [...] exercise. Orders: azelastine ophthalmic, (more content not included)...[facility] Memorial HospitalComment on above:Result Comment: Electronically Signed By: Ya Wang\.br\Date and Time Signed: 11/11/22 09:53 EDTPatient Educationon 78-81-7425Ufvgjag EducationHigh-Fiber Diet Fiber, also called dietary fiber, [...] serving. ? Talk with a diet and child nutrition assistant (dietitian) if you have questions about specific [...] Bulgur wheat. Millet. Quinoa. Bran muffins. Popcorn. [place] wafer crackers. Meats and other proteins [place], kidney, and díaz beans. Soybeans. Split peas. [...] Cream cheese. Sour cream. Fats and oils [place]. Beverages Soft drinks. Other foods Cakes and [...] 03/07/2006 Document Revised: 01/09/2018 Document Reviewed: 01/09/2018 [employer] Patient Education ? 2019 [place]. Gastroenterology H (more content not included)...[facility] HospitalAmbulatory Visit Summaryon 14-28-8481Memgffflad Visit Summary YANA CHURCH :2000 Visit Date:10/08/2022 [...] f/u for hypothyroid, weight loss Where: [address] [facility], [facility] [place] [address] [address]- Business (1) You Need to Complete the Following Anti-thyroid Abys, Blood, Routine collect, 10/08/22, Order for future visit, Lab Collect, Weight lossInvalid Interpretation CodeHypothyroidismUc Medical CenterAuto Diffon 47-42-6762Gfnxbhgmx/100 WBC (Bld)1.1 %Normal0.0-2.0 [facility]c Medical CenterComment on above:Order Comment: Order Added by Discern Expert.Performed By: #### [id number], 17053111, 70248482, 0675595, 2959328 ####[facility] [address] [place] [address] Basophils/Leukocytes Auto (Bld) [Pure # fraction]0.1 E9/LNormal0.0-0.2FVeterans Health AdministrationComment on above:Order Comment: Order Added by Discern Expert.Performed By: #### 2508874, 37064960, 33899374, 4117660, 1711619 ####[facility] [address] [place] [address] Eosinophils/100 WBC (Bld)1.2 %Normal0.0-8.0Uc Medical CenterComment on above:Order Comment: Order Added by Discern Expert.Performed By: #### 0413753, 89551476, 82496727, 2640796, 7990153 ####[facility] [address] [place] [address]Njlcwbbemwx/Leukocytes Auto (Bld) [Pure # fraction]0.1 E9/LNormal0.0-0.5FVeterans Health AdministrationComment on above: Order Comment: Order Added by Discern Expert.Performed By: #### 1183208, 12976130, 08043893, 5997532, 3010824 ####[facility] [address] [place] [address]Tdixzssxbmd/100 WBC (Bld)41.0 %Normal 14.0-50.0Uc Medical CenterComment on above:Order Comment: Order Added by Discern Expert.Performed By: #### 5655924, 28476450, 37851665, 4004483, 3591007 ####[address] [address]Zhtoyjeipuu/Leukocytes Auto (Bld) [Pure # fraction]2.3 E9/LNormal1.0-4.0 [facility] Medical CenterComment on above:Order Comment: Order Added by Discern Expert.Performed By: #### 2000224, 65349680, 35842689, 7983009, 5658832 ####[address] [address] Monocytes/100 WBC (Bld)5.8 %Normal4.0-14.0Uc Medical CenterComment on above:Order Comment: Order Added by Discern Expert.Performed By: #### 3295376, 23374787, 24179775, 3546877, 0493742 ####[facility] [address] [place] [address]Myolruwon/Leukocytes Auto (Bld) [Pure # fraction]0.3 E9/LNormal0.2-1.0[facility]c Medical CenterComment on above:Order Comment: Order Added by Discern Expert.Performed By: #### 0645311, 22624880, 29988973, 3018460, 3221253 ####[address] [address]Mrlkqrcykxb/100 WBC (Bld)50.9 %Gnvqou24.0-75.0 [facility] Medical CenterComment on above:Order Comment: Order Added by Discern Expert.Performed By: #### 0973644, 59489356, 56059766, 0894949, 0913612 ####[address] [address] Neutrophils/Leukocytes Auto (Bld) [Pure # fraction]2.8 E9/LNormal2.0-7.5FVeterans Health AdministrationComment on above:Order Comment: Order Added by Discern Expert.Performed By: #### 7462768, 58363533, 50952688, 0606693, 8001957 ####[address] [address]OKC w/ Auto Diffon 36-03-7595Tffwwabcbny distribution width (RBC) [Ratio]12.6 % Wlslqe49.9-14.2FVeterans Health AdministrationComment on above:Performed By: #### 5991508, 48795927, 92084318, 4142547, 8343333 ####[address] [address]Kullbcqigg (Bld) [Volume fraction] 40.4 %Aqhlzm55.0-46.0Uc Medical CenterComment on above:Performed By: #### 1431794, 02201171, 59939789, 5012693, 1657413 ####[address] [address]Nhnefamrzd (Bld) [Mass/Vol] 14.1 g/iZUqbsoa06.0-16.0Uc Medical CenterComment on above:Performed By: #### 1819890, 84793484, 43825943, 6865934, 9227365 ####[address] [address]PZU (RBC) [Entitic mass]32.1 fdMzwrha11.0-34.0Uc Medical CenterComment on above:Performed By: #### 3056200, 87414786, 15151716, 9308256, 1444589 ####[address] [address]FHDG (RBC) [Mass/Vol]34.8 g/dLNormal 31.4-36.0Uc Medical CenterComment on above:Performed By: #### 4449957, 93233445, 32267650, 4488162, 8276115 ####[facility] [address] [place] [address]OYF (RBC) [Entitic vol]92.1 fLNormal 80.0-100.0Uc Medical CenterComment on above:Performed By: #### 4809483, 91501613, 05998952, 5856830, 0349812 ####[address] [address]Ypsilqwv mean volume (Bld) [Entitic vol]9.1 fLNormal6.4-10.8Uc Medical CenterComment on above:Performed By: #### 7568565, 18067807, 14372281, 1802147, 1108425 ####[address] [address]Vtzpfzgzx (Bld) [#/Vol]238.0 E9/QNtixkc752.0-500.0Uc Medical CenterComment on above:Performed By: #### 5170106, 65123381, 46804702, 6807454, 3599463 ####[address] [address]QIM (Bld) [#/Vol]4.4 E12/L Normal4.3-5.9Uc Medical CenterComment on above:Performed By: #### 1585951, 27501322, 83370709, 3132784, 0074611 ####[address] [address]HYT corrected for nucl RBC Auto (Bld) [#/Vol]5.6 E9/LNormal4.0-11.0[facility]c Medical CenterComment on above: Performed By: #### 2149722, 64860209, 38334099, 4343473, 5359292 ####[facility] [address] [place], [place] [address]PCDfn 10-08-2022 Albumin [Mass/Vol]4.7 g/dLNormal3.3-5.0Uc Medical CenterComment on above:Performed By: #### 8547110, 75406395, 50483092, 0347336, 7540447 ####[facility] [address] [place] [address] Albumin/Globulin (S) [Mass conc ratio]1.5Zmyqxo0.1-2.2FVeterans Health AdministrationComment on above:Performed By: #### 4857585, 58346845, 90293399, 1351115, 0144972 ####[facility] [address] [place] [address]TUN [Catalytic activity/Vol]42 Int._Unit/BSzzmcj50-83EudkqcUc Medical CenterComment on above:Performed By: #### 0385392, 74739937, 11265664, 9238446, 0039462 ####[facility] [address] [place], [place] [address]JEC No additional P-5'-P [Catalytic activity/Vol]15 Int._Unit/LNormal6-46 [facility] Medical CenterComment on above:Performed By: #### 4610909, 88533306, 20657956, 7139441, 8978615 ####[facility] [address] [place], [place] [address]Khyds gap [Moles/Vol]13 mmol/LNormal6-16 [facility] Medical CenterComment on above:Performed By: #### 3680397, 93424243, 62402861, 5785231, 9923148 ####[facility] [address] [place], [place] [address]UZS [Catalytic activity/Vol]22 Int._Unit/LNormal5-43Fisher Wilkinson Medical CenterComment on above:Performed By: #### 0446599, 54744201, 85709886, 2063173, 3109261 ####[facility] [address] [place], [place] [address]Gelnjxhvc [Mass/Vol]0.5 mg/dL Normal0.0-1.1FVeterans Health AdministrationComment on above:Performed By: #### 4653908, 96034819, 13875922, 3664382, 4611687 ####[facility] [address] [place], [place] [address]Sfxbtrb [Mass/Vol]9.4 mg/dLNormal 8.9-11.1FVeterans Health AdministrationComment on above:Performed By: #### 2415658, 49612500, 67700286, 5943646, 7688296 ####[facility] [address] [place], [place] [address]Wqofskqv [Moles/Vol]107 mmol/LNormal 101-111Uc Medical CenterComment on above:Performed By: #### 4983439, 67434999, 17730006, 5791123, 5629955 ####[facility] [address] [place], [place] [address]TU3 [Moles/Vol]24 mmol/GRvzdex52-72 [facility] Medical CenterComment on above:Performed By: #### 1523671, 27053729, 11061866, 4505132, 7648976 ####[facility] [address] [place], [place] [address]Utnbgfuzfs [Mass/Vol]0.7 mg/dLNormal 0.5-1.3FVeterans Health AdministrationComment on above:Performed By: #### 3358333, 95000642, 61170027, 0937220, 3290023 ####[facility] [address] [place], [place] [address]Hkznubpg (S) [Mass/Vol]3.2 g/dLNormal 1.4-4.0Uc Medical CenterComment on above:Performed By: #### 8135090, 49738350, 22934084, 5097054, 9472393 ####[facility] [address] [place], [place] [address]Likiffe [Mass/Vol]105 mg/nLXefeqi39-605 [facility] Medical CenterComment on above:Result Comment: If this glucose result represents a fasting glucose, interpretation should refer tothe following reference range: 55-99 mg/dLPerformed By: #### 4369588, 64117357, 03660300, 2090146, 4254172 ####[facility] [address] [place], [place] [address]Krjwkentw [Moles/Vol]3.9 mmol/LNormal3.5-5.3FVeterans Health AdministrationComment on above:Performed By: #### 2328733, 11123353, 72589310, 4089540, 4595397 ####[facility] [address] [place], [place] [address]Uiqrsqg [Mass/Vol]7.9 g/dLHigh6.0-7.8Uc Medical CenterComment on above:Performed By: #### 2082606, 62113445, 74441429, 3746994, 4366737 ####[facility] [address] [place], [place] [address]Fqqhyq [Moles/Vol]140 mmol/YGmlsud158-416OirasgUc Medical CenterComment on above:Performed By: #### 6864190, 85289989, 14855704, 6246429, 1237936 ####[facility] [address] [place], [place] [address]Dbcs nitrogen [Mass/Vol]17 mg/dLNormal5-21Uc Medical CenterComment on above:Performed By: #### 7717397, 10065892, 48673335, 9659948, 9875782 ####[facility] [address] [place], [place] [address]Atpk nitrogen/Creatinine [Mass ratio]24 No NgdnqSsdq49-69LkuxoiUc Medical Center Comment on above:Performed By: #### 7335914, 60737188, 32470077, 0285845, 1305916 ####Barry [facility] [address] [place] [address]Vcucnyb for Treatmenton 51-38-8849Zuebdcn for Treatment [id number]#[id number]:127NormalThe [facility] Medicine Office/Clinic Noteon 07-52-3096Pgwjhr Medicine Office/Clinic NoteChief Complaint Establish care --- [...] Dr Marshall scheduled for nov 2022 Specialists: Book Mender: Bird Álvarez in [place]- contacts most of the time, Dentist: UTD - no issues- Dr Nila MARSHALL- [facility] GINA KASPER Review of Systems PHQ [...] Pap testing and 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 Discussed self breast exams and other [...] and exercise increasing. Patient encouraged to use sqoe-phr-uujbtcr MiraLAX or Colace, encouraged Preparation H ynnz-vdf-pjwrbbp topical treatments if needed. \ Follow-up only if needed. Patient only having minimal complaints 3. Constipation in female (K59.00: Constipation, unspecified) see #3 4. BMI 20.0-20.9, ad (more content not included)...[facility] Memorial HospitalComment on above:Result Comment: Electronically Signed By: Ya Wang\.br\Date and Time Signed: 10/08/22 16:30 EDTPatient Educationon 35-03-4007Afuvpcv EducationEndocrinology Hypoglycemia Hypoglycemia occurs when the level [...] instructions at home: General instructions ? Take lyqo-thn-vmuvgea and prescription medicines only as told by your health care provider. ? Monitor your blood glucose as told by your health care provider. ? If you drink alcohol: ? Limit how much you have to: ? 0?1 (more content not included)...NormalBluffton Hospital With T4fr Reflexon 52-07-2204EIL Qn0.58 m[IU]/LNormal0.34-5.60[facility]c Medical CenterComment on above:Performed By: #### 3606912, 31477952, 86000897, 1022878, 0262847 ####Jhonny [facility] [address] [place], [place] [address]gVWNmx 99-20-9672BOB/1.73 sq M.predicted among non-blacks MDRD (S/P/Bld) [Vol rate/Area]124 mL/min/1.73 z8Wfvshd>=59Fisher [facility]pmc Western MarylandComment on above:Order Comment: Order added by Discern Expert.Result Comment: Chronic kidney disease could be indicated at eGFR's of less than 60 mL/min/1.73m2. K idney failure is indicated at less than 15 mL/min/1.73m2.Performed By: #### 1085033, 99160623, 65916825, 4828356, 8240674 ####Barry [facility] [address] [place], [place] [address]AWF ACOG PANEL 2: 21 to 29on 10-23-2021..NormalAvita Health System Ontario HospitalComment on above:Performed By: #### CBC #### [facility] [address] [place] [address] Dr. Rima Dinh Gdln ACOG Kmmgkhj69-16PopafmKznGlenbeigh HospitalComascension river district hospital on above:Performed By: #### CBC #### [facility] [address] [place] [address] Dr. Rima CharlesDIAGNOSIS:CommentRegency Hospital Cleveland East on above: Result Comment: NEGATIVE FOR INTRAEPITHELIAL LESION OR MALIGNANCY. THIS SPECIMEN WAS RESCREENED PART OF OUR SCRIPT MANAGER PROGRAM.Performed By: #### CBC #### [facility] [address] [place] [address] Dr. Rima CharlesMethodology:CommentRegency Hospital Cleveland East on above: Result Comment: This liquid based ThinPrep(R) pap test was screened with the use of an image guided system.Performed By: #### CBC #### [facility] [address] [place] [address] Dr. Rima CharlesNote:CommentRegency Hospital Cleveland East on above:Result Comment: The Pap smear is a screening test designed to aid in the detection of premalignant and malignant conditions of the uterine cervix. It is not a diagnostic procedure and should not be used as the sole means of detecting cervical cancer. Both false-positive and false-negative reports do occur. .Performed By: #### CBC #### [facility] [address] [place] [address] Dr. Rima CharlesPerformed by:CommentRegency Hospital Cleveland East on above: Result Comment: Piter Cagle, Wafer Fab Operator (ASCP)Performed By: #### CBC #### [facility] [address] [place] [address] Dr. Rima Bryson reviewed by:[facility] on above:Result Comment: Hannah Morejon, Supervisory Wafer Fab Operator (ASCP) Performed By: #### CBC #### [facility] [address] [place] [address] Dr. Rima CharlesReflex Criteria:CommentRegency Hospital Cleveland East on above:Result Comment: The HPV DNA reflex criteria were not met with this specimen result therefore, no HPV testing was performed. .Performed By: #### CBC #### [place] [address] Dr. Rima CharlesSpecimen adequacy:CommentRegency Hospital Cleveland East on above:Result Comment: Satisfactory for evaluation. Endocervical and/or squamous metaplastic cells (endocervical component) are present. Areas of partially obscuring blood are present.Performed By: #### CBC #### [facility] [address] [place] [address] Dr. Rima Cornell T4on 07-01-0445Lgdn T4 [Mass/Vol]1.01 ng/dLNormal0.76-1.[address] [facility] on above:Performed By: #### FT4 #### [facility] [address] [place] [address] Dr. Rima BrowerHoagustín 50-07-4666KXK8.997 uIU/mLCritically high0.358-3.740The [facility] on above:Performed By: #### TSH #### [facility] [address] [place] [address] Dr. Rima CharlesVAGINITIS/VAGINOSIS DNA PROBEon 54-85-3107Cmolbyd speciesNegative NormalNegativeThe [facility] on above:Performed By: #### CBC #### [facility] [address] [place] [address] Dr. Rima Moonerejoba vaginalisNegativeNormalNegativeAvita Health System Ontario Hospital Comment on above:Performed By: #### CBC #### [facility] [address] [place] [address] Dr. Rima Calvo vaginalisNegativeNormalNegativeAvita Health System Ontario Hospital Comment on above:Performed By: #### CBC #### [facility] [address] [place] [address] Dr. Rima CharlesCHLAMYDIA/GONOCOCCUS FRANSISCO (SWAB/URINE/PAPon 82-15-7288Kpblbsrbk trachomatis, NAANegativeNormalNegativeAvita Health System Ontario HospitalComment on above: Performed By: #### CBC #### [facility] [address] [place] [address] Dr. Rima CharlesNeisseria gonorrhoeae, NAANegativeNormalNegativeAvita Health System Ontario HospitalComment on above:Performed By: #### CBC #### [facility] [address] [place] [address] Dr. Rima CharlesVAGINITIS/VAGINOSIS DNA PROBEon 80-04-7556Byviddp speciesNegative NormalNegativeAvita Health System Ontario HospitalComment on above:Performed By: #### VAGINT #### [facility] [address] [place] [address] Dr. Rima Moonerebenedict vaginalisNegativeNormalNegativeAvita Health System Ontario Hospital Comment on above:Performed By: #### VAGINT #### [facility] [address] [place] [address] Dr. Rima Calvo vaginalisNegativeNormalNegativeAvita Health System Ontario Hospital Comment on above:Performed By: #### VAGINT #### [facility] [address] [place] [address] Dr. Rima Livingston 77-03-4163ATY7.494 uIU/mLNormal0.470-4.680Av[facility] Ontario HospitalComment on above:Performed By: #### CBC #### [facility] [address] [place] [address] Dr. Rima Dougherty RANGESEE [facility] HospitalComment on above: Result Comment: <0.34 UIU/ml HYPERTHYROID 0.34-5.60 UIU/ml EUTHYROID >5.60 UIU/ml HYPOTHYROIDPerformed By: #### CBC #### [facility] [address] [address] [address] Rima Barnes MATERNAL FOR SPINA BIFIDAon 85-99-2204BIJ MoM0.98[facility] HospitalComment on above:Performed By: #### AFPMAT #### [facility] [address] [address] [address] Rima Barnes Value36.3 ng/mLNormalAvita Health System Ontario HospitalComment on above: Performed By: #### AFPMAT #### [facility] [address] [address] [address] Rima Barnes, Serum for Spina BifidaReAdams County Regional [facility] Comment on above:Performed By: #### AFPMAT #### [facility] [address] [address] [address] Rima CurrieGreen Cross HospitalComment on above:Result Comment: Alie Moon, Ph.D., [facility] Director . References: Available Upon Request. . Multiples Of Median Cutoffs For AFP Elevations Murphy 2.5 Black 2.8 IDD 2.0 Twins 4.5 Abbreviation Definitions IDD - Insulin Dep Diabetes OSBR - Open Spina Bifida Risk . For further inquiries contact [facility] at [phone].Performed By: #### AFPMAT #### [facility] [address] [address] [address] Rima Pedro Age Collection Date16.0 weeksC[facility] Comment on above:Performed By: #### AFPMAT #### [facility] [address] [address] [address] Rima Pedroat, Age Based onLMPNormalAvita Health System Ontario HospitalComment on above:Result Comment: Recalculations are not recommended when gestational dating by LMP and ultrasound are within 10 days.Performed By: #### AFPMAT #### [facility] [address] [place] [address] [address] HospitalComascension river district hospital on above:Performed By: #### AFPMAT #### [facility] [address] [place] [address] Dr. Rima CharlesInterpretationGreen Cross HospitalComascension river district hospital on above: Result Comment: Interpretation: Screen [...] Customer Services to discuss available options. The [employer] recommends amniocentesis be offered to women age 35 and older.Performed By: #### AFPMAT #### [facility] [address] [place] [address] Dr. Rima CharlesMaternahaley Age at EDD23.4 yrCleveland Clinic South Pointe HospitalComascension river district hospital on above:Performed By: #### AFPMAT #### [facility] [address] [place] [address] Dr. Rima Erazo [facility] HospitalCom[facility] on above: Performed By: #### AFPMAT #### [facility] [address] [place] [address] Dr. Rima CharlesOSBR Risk 1 [id number] Clinic South Pointe HospitalComascension river district hospital on above: Performed By: #### AFPMAT #### [facility] [address] [place] [address] Dr. Rima Meadows.[facility] on above:Performed By: #### AFPMAT #### [facility] [address] [place] [address] Dr. Rima cMcoyTogus VA Medical CenterComment on above: Performed By: #### AFPMAT #### [facility] [address] [place] [address] Dr. Rima Urena Results:NegativeNormalThe [facility] SystemComment on above: Performed By: #### AFPMAT #### [facility] [address] [place] [address] Dr. Rima Del Rosario B SURFACE ANTIGEN SCREENon 14-14-9017XLlWr ScreenNegative NormalNegativeThe [facility] SystemComment on above:Performed By: #### HBSANS #### [facility] [address] [place] [address] Dr. Rima RiosTIS C ANTIBODYon 33-34-5441Uqq C Virus Ab<0.6Ihzcno1.0-0.[address] [facility] on above:Result Comment: Negative: < 0.8 Indeterminate: 0.8 - 0.9 Positive: > 0.9 . The CDC recommends that a positive HCV antibody result be followed up with a HCV Nucleic Acid Amplification test (827869).Performed By: #### HCV #### [facility] [address] [place] [address] Dr. Rima Chery 1 AND 2 WITH REFLEXon 09-67-9821BYY Screen 4th Generation wRfxNon-ReactiveNormalNon ReactiveThe [facility] SystemComascension river district hospital on above: Performed By: #### HIV12 #### [facility] [address] [place] [address] Dr. Rima CharlesRPR QUANTon 60-16-7178Cngnq Plasma Reagin, QuantNon-Reactive NormalNonRea<1:1The [facility] on above:Performed By: #### CBC #### [facility] [address] [place] [address] Dr. Rima MirelesBELLA AB IGGon 22-20-4538Gyitalk Antibodies, IgG2.33 index NormalImmune >0.99The [facility] on above:Result Comment: Non- immune <0.90 Equivocal 0.90 - 0.99 Immune >0.99Performed By: #### RUBIGG #### [facility] [address] [address] [address] Rima Sierra AUTO DIFFon 47-26-5797TVLM #0.0 103/ulNormal0.0-0.1The [facility] Medical Centerment on above:Performed By: #### CBC #### [facility] [address] [address] [address] Rima CharlesBasophils/100 WBC (Bld)0.4 %Normal0.2-2.0The [facility] Comment on above:Performed By: #### CBC #### [facility] [address] [place] [address] Dr. Rima Fuller #0.0 103/ulNormal0.0-0.7The [facility] SystemComment on above: Performed By: #### CBC #### [facility] [address] [place] [address] Dr. Rima Leahyosinophils/100 WBC (Bld)0.6 %Critically low0.9-7.0The [facility] SystemComment on above:Performed By: #### CBC #### [facility] [address] [place] [address] Dr. Rima Leahyrythrocyte distribution width (RBC) [Ratio]12.0 %Wcmium67.0-15.0 The [facility] SystemComment on above:Performed By: #### CBC #### [facility] [address] [place] [address] Dr. Rima CharlesHematocrit (Bld) [Volume fraction]37.5 %Djcrzz72.0-48.0The [facility] SystemComment on above:Performed By: #### CBC #### [facility] [address] [place] [address] Dr. Rima CharlesHemoglobin (Bld) [Mass/Vol]13.2 g/uTHiirrj11.0-16.0The [facility] Medical Centerment on above:Performed By: #### CBC #### [facility] [address] [place] [address] Dr. Riam Carreno #0.02 10e3/ulNormal0.00-0.03The [facility] Medical Centerment on above:Performed By: #### CBC #### [facility] [address] [address] [address] Rima Carreno %0.3 %Normal0.0-0.5The [facility] SystemComascension river [facility] hospital on above: Performed By: #### CBC #### [facility] [address] [address] [address] Rima Singleton #1.4 103/ulNormal1.2-3.8The [facility] SystemComasc[facility] river [facility] hospital on above:Performed By: #### CBC #### [facility] [address] [place] [address] Dr. Rima Jayhocytes/100 WBC (Bld)20.2 %Critically low20.5-60.0The [facility] SystemComascension river district hospital on above:Performed By: #### CBC #### [facility] [address] [place] [address] Dr. Rima Lr DIFF REQNONormalThe [facility] SystemComment on above: Performed By: #### CBC #### [facility] [address] [place] [address] Dr. Rima Nicholas (RBC) [Entitic mass]33.2 jyYbnrst30.7-34.0The [facility] on above:Performed By: #### CBC #### [facility] [address] [place] [address] Dr. Rima Fall (RBC) [Mass/Vol]35.2 g/xNUglzpd52.9-35.2The [facility] Medical Centerment on above:Performed By: #### CBC #### [facility] [address] [place] [address] Dr. Rima Fall (RBC) [Entitic vol]94.5 yHNlxnwd92.0-99.0[facility] on above:Performed By: #### CBC #### [facility] [address] [place] [address] Dr. Rima Grossman #0.4 103/ulNormal0.3-0.8The [facility] SystemComment on above:Performed By: #### CBC #### [facility] [address] [place] [address] Dr. Rima Wenocytes/100 WBC (Bld)6.1 %Normal1.7-12.0The [facility] Comment on above:Performed By: #### CBC #### [facility] [address] [place] [address] Dr. Rima Huston #5.1 103/ulNormal1.4-6.5The [facility] SystemComment on above:Performed By: #### CBC #### [facility] [address] [place] [address] Dr. Rima Bobutrophils/100 WBC (Bld)72.4 %Iopupp70.0-75.0The [facility] SystemComment on above:Performed By: #### CBC #### [facility] [address] [place] [address] Dr. Rima Bradfordlet mean volume (Bld) [Entitic vol]11.2 fLNormal9.5-13.5The [facility] SystemComment on above:Performed By: #### CBC #### [facility] [address] [place] [address] Dr. Rima CharlesPLT221 103/zjKdaenf200-216Eil [facility] SystemComment on above: Performed By: #### CBC #### [facility] [address] [place] [address] Dr. Rima CharlesRBC3.97 106/ulCritically low4.20-5.40The [facility] SystemComment on above:Performed By: #### CBC #### [facility] [address] [place] [address] Dr. Rima CharlesWBC7.1 103/ulNormal4.0-11.0The [facility] SystemComment on above: Performed By: #### CBC #### [facility] [address] [place] [address] Dr. Rima Cardenas URINEon 29-13-2030WVTPSPC URINECulture Observations: No growthNoGlenbeigh HospitalComment on above:Performed By: #### CBC #### [facility] [address] [place] [address] Dr. Rima CharlesGLYCOHEMOGLOBIN A1Con 85-72-7608BHN RECOMMENDATIONADA THERAPEUTIC TARGET 6.0 - 7.0 ACTION SUGGESTED > 7.0NoGlenbeigh HospitalComment on above:Performed By: #### A1C #### [facility] [address] [place] [address] Dr. Rima CharlesGlucose [Mass/Vol]111 mg/dLCleveland Clinic South Pointe HospitalComment on above:Performed By: #### A1C #### [facility] [address] [place] [address] Dr. Rima CharlesHbA1c (Bld) [Mass fraction]5.5 %Normal<=6.0[facility] Comment on above:Performed By: #### A1C #### [facility] [address] [place] [address] Dr. Rima Escalante BOX TEST PT SEND OUTon 59-06-2483QKSM TO REF LAB12/09/20 NormalAvita Health System Ontario HospitalComascension river district hospital on above:Performed By: #### CBC #### [facility] [address] [place] [address] Dr. Rima BrowerHoagustín 31-17-5621ZSG5.651 uIU/mLNormal0.470-4.680The [facility] SystemComascension river district hospital on above:Performed By: #### CBC #### [facility] [address] [place] [address] Dr. Rima Dougherty RANGESEE BELOWCleveland Clinic South Pointe HospitalComment on above: Result Comment: <0.34 UIU/ml HYPERTHYROID 0.34-5.60 UIU/ml EUTHYROID >5.60 UIU/ml HYPOTHYROIDPerformed By: #### CBC #### [facility] [address] [place] [address] Dr. Rima CharlesTYPE AND SCREENon 57-23-7315MKMY AND SCREENNegativeNoGlenbeigh HospitalComment on above:Performed By: #### CBC #### [facility] [address] [address] [address] Rima Butler PREG TVon 15-70-0381HE PREG TVEXAMINATION: US PREG TV HISTORY: Urine [...] live intrauterine . Electronically authenticated by: LILIANE PPOE Date: 2020-12-02 09:34[facility] Vital Signs Date TimeVital SignValuePerforming KntsuncyvPnbcntsf70-18-0393 08:39-0500Body mass index (BMI) [Ratio]26.29 kg/f1Hpayb Movile DO Work Phone: [phone] [place], [place] [address]Qitftlhpoq82-05-1329 08:39-0500Body .67 kgCorey Wellntel Work Phone: [phone] [place], [place] [address]Wahumtryxj48-66-7081 08:39-0500Diastolic blood llpibnme70 mm[Hg][employer] Work Phone: [phone] [place], [place] [address]Fplpnhqlio07-93-1040 08:39-0500Systolic blood frxnyykv566 mm[Hg][employer] Work Phone: [phone] [place], [place] [address]Avdrhvhilp63-22-0793 08:35-0400Body mass index (BMI) [Ratio]26.71 kg/m3Zdnia Joanna Carlypso Work Phone: [phone] InstituteTgjmoztblo36-44-5212 08:35-0400Body .8 kg [employer]oshZe[employer] Work Phone: [phone] HospitalThe Rehabilitation InstituteElndyxwlxx64-70-9741 08:35-0400Diastolic blood indwaqgp09 mm[Hg]Santosh Joanna DO Work Phone: [phone] [place], [place] [address]Teoxivurpc93-48-4895 08:35-0400Systolic blood buafjreu887 mm[Hg]Santosh Joanna DO Work Phone: [phone])[facility] [place], [place] [address]Fhzvukvomj70-40-0030 11:20-0400Body mass index (BMI) [Ratio]25.38 kg/c9Cetvj Joanna DO Work Phone: [phone])[facility] [place], [place] [address]Ghbhwcunpg65-88-0267 11:20-0400Body .17 kgCorey Joanna DO Work Phone: [phone] [place] [address]-13-2025 11:20-0400Diastolic blood moiudoto68 mm[Hg]Santosh Joanna DO Work Phone: [phone])[facility] [place], [place] [address]Duuzbmcgfi01-11-6126 11:20-0400Systolic blood mm[Hg]Santosh Joanna DO Work Phone: [phone] [place], [place] 1194909-22-2025 10:23-0400Body mass index (BMI) [Ratio]24.79 kg/m2Amy Brea PA Work Phone: [phone])[facility] [place], [place] [address]Tezewresez41-36-6958 10:23-0400Body cufmiy09.59 kgAmy Brea PA Work Phone: [phone])[facility] [place], [place] [address]Zddecnbdhb48-14-5850 10:23-0400Diastolic blood rxhgndaf73 mm[Hg]Erum Guidry PA Work Phone: [phone])[facility] [place], [place] [address]Mqraqilfmr59-19-7221 10:23-0400Systolic blood dmxvaoya059 mm[Hg]Erum Guidry PA Work Phone: [phone])[facility] [place], [place] [address]Qqvywqewqd56-96-1464 11:45-0400Body mass index (BMI) [Ratio]23.15 kg/i1Oxuti Joanna DO Work Phone: [phone])[facility] [place], [place] [address]Hpjaxihthj53-19-7280 11:45-0400Body xoeyov86.1 kg Santosh Joanna DO Work Phone: [phone])[facility] [place], [place] [address]Gjplxslcvu76-37-2291 11:45-0400Diastolic blood sjxbabzc07 mm[Hg]Santosh Joanna DO Work Phone: [facility] InstituteIhcbbwofdz57-21-1452 11:45-0400Systolic blood edxhwuyl775 mm[Hg]Santosh Bhaktao DO Work Phone: [phone]08-18-2025 11:51-0400Body lqyvgx972.1 cmJacklyn Campos MD Work Phone: [phone])[address] [place], [place] 9356208-18-2025 11:51-0400Body mass index (BMI) [Ratio]23.03 kg/a4EmawruhsJacklyn Campos MD Work Phone: [phone])[address] [place], [place] 9356208-18-2025 11:51-0400Body vpujal96.78 kgJacklyn Campos MD Work Phone: [phone])[address] [place], [place] 9356208-18-2025 11:51-0400Diastolic blood ljvaccco94 mm[Hg]Jacklyn Campos MD Work Phone: 1(095)[address] [place], [place] 9356208-18-2025 11:51-0400Heart rate 94 /minJacklyn Campos MD Work Phone: [phone])[address] [place], [place] 9356208-18-2025 11:51-0400Systolic blood yzlitwsz19 mm[Hg]Jacklyn Campos MD Work Phone: [phone])[address] [place], [place] 9356207-28-2025 10:13-0400Body mass index (BMI) [Ratio]22.38 kg/m2Erum HAYS Work Phone: [phone] [place], [place] [address]Gfttdwtjnx73-25-8177 10:13-0400Body yzlcxn62.01 kgrEum HAYS Work Phone: [phone] [place], [place] [address]Zxyzckxwbg75-74-3370 10:13-0400Diastolic blood lxbccpha21 mm[Hg]Erum HAYS Work Phone: [phone] [place], [place] [address]Fnkeyqcasc29-16-1553 10:13-0400Systolic blood rkksjwey305 mm[Hg]Erum HAYS Work Phone: [facility] InstituteGngeqgaaot11-73-4004 11:10-0400Body mass index (BMI) [Ratio]22.1 kg/h7Nrzgp Joanna DO Work Phone: [phone] [place], [place] [address]Ebpwmtbwxw99-76-0568 11:10-0400Body ktkvid00.24 kgCorey Joanna DO Work Phone: 1(850)[facility] [place], [place] [address]Zstzesmjpx85-28-9728 11:10-0400Diastolic blood wusfxnfm09 mm[Hg]Santosh Joanna DO Work Phone: 1(199)[facility] [place], [place] [address]Ohakvdwtag09-50-9164 11:10-0400Systolic blood mm[Hg]Santosh Joanna DO Work Phone: [phone] [place], [place] 1194905-30-2025 10:00-0400Body mass index (BMI) [Ratio]22.86 kg/m2[facility]05-30-2025 10:00-0400Body .32 kgMad[facility]05-30-2025 10:00-0400Diastolic blood aajcuntz58 mm[Hg][facility]05-30-2025 10:00-0400Systolic blood xzpcyrmt275 mm[Hg][facility]09-23-2024 14:19-0400Body mass index (BMI) [Ratio]21.15 kg/w0Yxhyg Joanna DO Work Phone: 1(859)[facility] [place], [place] [address]Hbnhfyleki26-80-4983 14:19-0400Body ojglno75.66 kgCorey Joanna DO Work Phone: [phone]-[facility] Rehabilitation InstituteVtpbpjpufx49-18-2413 14:19-0400Diastolic blood rjokpics05 mm[Hg]Santosh Joanna DO Work Phone: [facility] InstituteTteqbakraq84-31-1663 14:19-0400Systolic blood mm[Hg]Santosh Joanna DO Work Phone: 1([phone] [place], [place] [address]Nquqqpuput31-36-2054 15:43-0400Blood Pressure Eladia Thornton 150-7265Tvkzax-WkgojChillicothe [facility] Grvk08-31-6464 15:43-0400Diastolic blood edfoqlam55 mm[Hg]Ya Thornton 318-9618Clsnzv-Pdgai[address] [place], [place] 2348605-20-2024 15:43-0400Heart adma233 /Waqar Thornton 936-5281Omjbqn-Mfqjw[address] [place], [place] 2348605-20-2024 15:43-0400Respiratory rate18 /Waqar Thornton 277-8528Wajyfl-Tztvf[address] [place], [place] 2348605-20-2024 15:43-2727HoH4% (BldA) [Mass fraction]100 %Ya Thornton [address] [place], [place] 4448405-20-2024 15:43-0400Systolic blood vumwmujt878 mm[Hg]Ya Thornton [address] [place], [place] 4448412-20-2023 07:21-0500Blood Pressure LocationYa Thornton [address] [place], [place] 4448412-20-2023 07:21-0500Body mdyttjvffop03.52 [degF]Ya Thornton [address] [place], [place] 4448412-20-2023 07:21-0500Diastolic blood spabgwtm31 mm[Hg]Ya Thornton [address] [place], [place] 4448412-20-2023 07:21-0500Heart rate91 /Waqar Thornton [address] [place], [place] 4448412-20-2023 07:21-0500Respiratory rate18 /Waqar Thornton [address] [place], [place] 4448412-20-2023 07:21-8878TlG3% (BldA) [Mass fraction]100 %Ya Thornton [address] [place], [place] 4448412-20-2023 07:21-0500Systolic blood lwrtzuqp859 mm[Hg]Ya Thornton 236-1859Cwhixd-FmxymJoint [facility]12-04-2023 12:53-0500Blood Pressure LocationYa Thornton 300-9858Qucjuo-Nhgwb[address] [place], [place] 2348612-04-2023 12:53-0500Diastolic blood mm[Hg]Ya Thornton 262-7721Bufqmr-Mxbxb[address] [place], [place] 2348612-04-2023 12:53-0500Heart dael125 /Waqar Thornton 581-6693Kccqai-Ysfcd[address] [place], [place] 2348612-04-2023 12:53-0500Respiratory rate18 /Waqar Thornton 800-8912Iyliqp-Bocqr[address] [place], [place] 2348612-04-2023 12:53-0264EgO2% (BldA) [Mass fraction]99 %Ya Thornton 388-7836Aruczy-Ucysc[address] [place], [place] 2348612-04-2023 12:53-0500Systolic blood qohqlpkb178 mm[Hg]Ya Thornton 333-3160Feeang-Xqvli[address] [place], [place] 2348609-12-2023 12:10-0400Blood Pressure LocationDaniel Gray 028-1947Dnibzn-JkohdMer[facility] Health [facility]09-12-2023 12:10-0400Body nbqnwnwrype34.52 [degF]Daniel Gray 016-0484Dqrvgs-SwxszMercy Health [facility] Hospital09-12-2023 12:10-0400Diastolic blood shddvqoa04 mm[Hg]Daniel Gray 722-9210Fxdqlw-HjxncMercy Health [facility] Hospital09-12-2023 12:10-0400Heart rate97 /Hans Gray 310-8046Jsdkzk-XkiafMercy Health Fairfield Hospital09-12-2023 12:10-0400Systolic blood cjehbhpd810 mm[Hg]Daniel Gray 197-2349Ijirex-BgifpMercy Health [facility] Hospital08-24-2023 09:20-0400Blood Pressure LocationYa Thornton [phone]-Odduu[address] [place], [place] 2348608-24-2023 09:20-0400Body gzcoodllcea25.06 [degF]Yasampson Thornton 184-1338Sueadb-Byxwz[address] [place], [place] 2348608-24-2023 09:20-0400Diastolic blood yzanxlji76 mm[Hg]Ya Thornton 955-0478Bzewpt-Owlfq[address] [place], [place] 2348608-24-2023 09:20-0400Heart rate76 /minEgerald Thornton 990-5766Zxtlrn-Dprfy[address] [place], [place] 2348608-24-2023 09:20-0379DpF7% (BldA) [Mass fraction]98 %Yasampson Thornton 075-1383Zsuzxn-Twdde[address] [place], [place] 2348608-24-2023 09:20-0400Systolic blood xtqhoopl050 mm[Hg]Ya Thornton 863-7992Scobid-Gxgbx[address] [place], [place] 2348602-13-2023 14:14-0500Blood Pressure LocationRitu Desai [phone]-Iwpfp[address] [place], [place] 2348602-13-2023 14:14-0500Body zicitllblvt24.7 [degF]Ritu Desai 513-7110Cgzmju-Xlgqn[address] [place], [place] 2348602-13-2023 14:14-0500Diastolic blood tehsqaxa86 mm[Hg]Ritu Desai 801-6380Vlwdah-Iyxrv[address] [place], [place] 2348602-13-2023 14:14-0500Heart rate71 /minRitu Desai 911-1737Urxvxl-Xztpw[address] [place], [place] 2348602-13-2023 14:14-6847LxZ6% (BldA) [Mass fraction]98 %Ritu Desai 271-5385Gcxfoc-IgyfzKet[facility] Tfep63-17-6894 14:14-0500Systolic blood dxabeifj470 mm[Hg]Ritu Moralesell 314-3951Vqxweu-WmrqsKettering Health [facility] Vpbg00-51-2131 02:06-0400Body upbkml72.[address] Vincent HospitalComment on above:Performed By: #### AFPMAT #### [facility] [address] [address] [address] Rima Charles Encounters Encounter DateEncounter TypeCare ProviderFacilityStart: 01-28-2025 End: 01-30-7906Tkndwx flowsheetCorey Joanna DO Work Phone: [facility] OBGYNStart: 01-28-2025 End: 54-36-2293Vccggp flowsheetCorey Joanna DO Work Phone: [facility] OBGYNStart: 01-28-2025 End: 91-60-3536Ihladkix flow sheetCorey Joanna DO Work Phone: [facility]ina OBGYNComment on above:Third trimester ([facility]); 32 weeks gestation of ([facility]); Thyroid disease; History of prior with IUGR ; Hypothyroidism, unspecified typeStart: 01-28-2025 End: 82-29-0126lwhfdqcffcBFAER FAZIONot AvailableStart: 01-14-2025 End: 85-53-3761Zypeil flowsheetCorey Joanna DO Work Phone: [facility] OBGYNStart: 01-14-2025 End: 49-91-2120Lyfloi flowsheetCorey Joanna DO Work Phone: [facility] OBGYNStart: 01-14-2025 End: 77-58-4591Ehbckxiw flow sheetCorey Joanna DO Work Phone: [facility]ina OBGYNComment on above:Third trimester ([facility]); 30 weeks gestation of ([facility])Start: 01-14-2025 End: 25-96-0460zlwvnhqgxbNTXZB FAZIONot AvailableStart: 40-29-8934tlbbmhezia Martaishmael RickettsmarcusFacility:[place] PCStart: 12-31-2024 End: 50-25-4090Twpdxrnp flow sheetCorey Joanna DO Work Phone: [facility]ina OBGYNComment on above:Third trimester ([facility]); 28 weeks gestation of ([facility])Start: 12-31-2024 End: 80-28-7928krsikqzxxrLOSWP FAZIONot AvailableStart: 12-12-2024 End: 22-06-9901Tljtrjjsb Result EncounterErum HAYS Work Phone: [facility] External Department UnsolicitedStart: 12-12-2024 End: 44-80-4209Ynlkfckfi Result EncounterErum HAYS Work Phone: NOCC External Department UnsolicitedStart: 12-11-2024 End: 61-65-3255ayjfsfwiufVMTQU R [facility]OSPITALTaurusMedisunny Hallie HospitalStart: 12-11-2024 End: 38-50-4881Smilbhpxd Result EncounterErum HAYS Work Phone: NOGN External Department UnsolicitedStart: 12-11-2024 End: 93-07-6214Nwaoqxmms Result EncounterErum HAYS Work Phone: NOAN External Department UnsolicitedStart: 12-10-2024 End: 82-14-0109Pozzrq flowsheetErum HAYS Work Phone: NOMS [facility] OBGYNStart: 12-10-2024 End: 17-96-7497Vnrmqp oliviaheetErum HAYS Work Phone: NOMS Augustina OBGYNStart: 12-10-2024 End: 72-41-2185Xktvblwj flow sheetErum HAYS Work Phone: NOXS Augustina OBGYNComment on above:Size of fetus inconsistent with dates in second trimester ([facility]) (Primary Dx); Second trimester ([facility]); 25 weeks gestation of ([facility]); Diabetes mellitus screeningStart: 12-10-2024 End: 16-37-8947xrrsxombcyJKM RAMFORTINONot AvailableStart: 11-27-2024 End: 12-43-2387ctrvuurkqvBIMKR R [facility] HospitalStart: 11-20-2024 End: 94-64-2721avszdbmqxpOSHGX R [facility] HospitalStart: 11-12-2024 End: 59-62-0951Tbddmq flowsheetCorey Joanna DO Work Phone: noms Augustina OBGYNStart: 11-12-2024 End: 29-98-2414Ermsdm flowsheetCorey Joanna DO Work Phone: noms [place] OBGYNStart: 11-12-2024 End: 69-24-8408Jqutyrgv flow sheetCorey Joanna DO Work Phone: noms [place] OBGYNComment on above:Hypothyroidism, unspecified type (Primary Dx); Second trimester ([facility]); 21 weeks gestation of ([facility]); Vaginal discharge; STD exposureStart: 11-12-2024 End: 09-03-5976gzinzrcfpvMTDMF FAZIONot AvailableStart: 11-07-2024 End: 79-02-7614Rxibmfauh Result EncounterCorey Joanna DO Work Phone: noms External Department UnsolicitedStart: 11-07-2024 End: 13-96-6873Jsicurlln Result EncounterCorey Joanna DO Work Phone: noms External Department UnsolicitedStart: 11-06-2024 End: 90-71-0893Ifkxes Sesar Smith RNMaternal- Medicine at [facility] HospitalComment on above: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 trimester (Primary Dx); History of prior with IUGR ; History of premature rupture of membranesStart: 11-05-2024 End: 98-73-3358Htdcph consultation new/estab patient 58 Jesus Campos MD Work Phone: [phone]-Kuwcu [facility] Comment on above:20 weeks gestation of (Primary Dx); Low-lying placenta; 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 trimester; History of prior with IUGR ; Family history of autism; History of gestational diabetes in prior , currently ; History of prior with short cervix, currently ; History of premature rupture of membranesStart: 11-05-2024 End: 67-69-3032fbwvpishliRXMTU [facility] HospitalStart: 10-15-2024 End: 24-77-1266Kqagfz flowsLizzie HAYS Work Phone: noms Augustina OBGYNStart: 10-15-2024 End: 20-65-7700Vosdfa David HAYS Work Phone: NODT [place] OBGYNStart: 10-15-2024 End: 05-32-0006Lmskgmpvo Result EncounterErum HAYS Work Phone: noms External Department UnsolicitedStart: 10-15-2024 End: 86-86-0044Dzbhrjjz flow Mahamed HAYS Work Phone: NOHN Augustina OBGYNComment on above:Second trimester ([facility]); 17 weeks gestation of ([facility])Start: 10-15-2024 End: 20-66-9052spvdqjllpyQSS RAMEYNot AvailableStart: 10-02-2024 End: 45-18-4691Akjnjbzib Result EncounterCorey Joanna DO Work Phone: noms External Department UnsolicitedStart: 10-02-2024 End: 56-81-6796Jqbofxkve Result EncounterCorey Joanna DO Work Phone: noms External Department UnsolicitedStart: 09-24-2024 End: 88-90-1652Hvfyr Rob Campos MD Work Phone: [phone]-Lvcjh [facility] Start: 09-24-2024 End: 21-64-9246Idbqmrryg Result EncounterCorey Joanna DO Work Phone: noms External Department UnsolicitedStart: 09-24-2024 End: 98-29-9313Rtygaqtlc Result EncounterCorey Joanna DO Work Phone: noms External Department UnsolicitedStart: 09-20-2024 End: 27-88-6926Jhcfbr Kashif Gutierrez RNMaternal- Medicine at [facility] HospitalComment on above:Thyroid disease affecting (Primary Dx); History of prior with IUGR newbornStart: 09-17-2024 End: 13-28-2669Zocswm flowsheetCorey Joanna DO Work Phone: noms BCP OBStart: 09-17-2024 End: 33-18-5869Muyggh flowsheetCorey Joanna DO Work Phone: noms BCP OBStart: 09-17-2024 End: 41-66-3440qyrrgdfuhpEWRAM FAZIONot AvailableStart: 09-17-2024 End: 24-99-6302Rwzcwaiv flow sheetCorey Joanna DO Work Phone: noms BCP OBComment on above:13 weeks gestation of ([facility]); Second trimester ([facility]); Thyroid disease ; History of prior with IUGR ; Diabetes mellitus screeningStart: 09-12-2024 End: 75-97-3323Lmaiuyoku Result EncounterCorey Joanna DO Work Phone: noms External Department UnsolicitedStart: 09-12-2024 End: 99-67-9675Lcyyhklax Result EncounterCorey Joanna DO Work Phone: noms External Department UnsolicitedStart: 08-21-2024 End: 45-63-5102Ercnufpig Result EncounterCorey Joanna DO Work Phone: NOMS External Department UnsolicitedStart: 08-21-2024 End: 06-29-5716Fuhgzihxe Result EncounterCorey Joanna DO Work Phone: NOMS External Department UnsolicitedStart: 08-17-2024 End: 63-20-5752Kuqtvn outpatient visit 5 minutesNoms Bcp Ob Joanna NurseNOMS BCP OBComment on above:GA: 2f2dPzoxa: 08-17-2024 End: 59-63-3202jypwdowrqnGUYXA FAZIONot AvailableStart: 07-09-2024 End: 94-00-3451xpegolwzteVoclbhEric AlmanzarFacility:[place] PCStart: 07-05-2024 End: 68-01-2415oufozkppmqNzwsa J SosinskiFacility:[place] PCStart: 07-04-2024 End: 03-24-3841pbxvxppcgqPigyhsEric AlmanzarFacility:FTMCStart: 07-04-2024 End: 18-63-5730Abhyykr encounter Patsy Almanzar [facility] Start: 05-14-2024 End: 92-76-1913dadlltskodUWYEBV E COSTINAkron [facility] Centertart: 05-14-2024 End: 32-49-2847Fqebkyzwgi hospital visit by Krys Jurado MD Work Phone: [facility] LabComment on above:Family history of autismStart: 12-12-2023 End: 21-06-5990Aqddls flowsheetCorey Joanna DO Work Phone: NOMS BCP OBStart: 12-12-2023 End: 69-94-2130Fzhaai flowsheetCorey Joanna DO Work Phone: NOMS BCP OBStart: 12-12-2023 End: 59-10-5816Nfilozoxi Result EncounterCorey Joanna DO Work Phone: noMS External Department UnsolicitedStart: 12-12-2023 End: 53-96-9758Myfetjs encounter procedureCorey Joanna DO Work Phone: [facility] Work Phone: Start: 12-12-2023 End: 91-49-2827Xedrunwm preventive med est patient 18-39 yrsCorey Joanna DO Work Phone: NOAQ BCP OBComment on above:Well woman exam with routine gynecological examStart: 09-07-2023 End: 17-61-2490gdxpyvipxoVqklkomxp L ClarkFacility:FTMCStart: 09-07-2023 End: 68-28-8841Lgoginn encounter procedureYa Thornton [facility] Start: 08-08-2023 End: 01-32-7198zxnqcxdjzlKoiouzuac L ClarkFacility:[place]ius[place] PCStart: 08-08-2023 End: 70-29-6461Uhbaeod encounter Rosina Thornton [phone]-YzpcvK[facility] Start: 07-12-2023 End: 42-00-3355myadsggiggGLIMEAJZ E PERRYFacility:EU ueStart: 07-12-2023 End: 01-34-8138Lulhtqb encounter procedureJENNIFER E SUKH [facility]ue start: 05-16-2023 End: 10-06-1193fkdchtxjmzYbpwpkhtk L ClarkFacility:FTMCStart: 05-16-2023 End: 97-01-2875aflqflpmzwDpgxwvkze L ClarkFacility:[place] PCStart: 04-01-2023 ambulatoryYa ThorntonFacility:EU BellevueStart: 03-24-2023 End: 87-43-6173znajvptgwxQjgztepfx L ClarkFacility:FTMCStart: 03-24-2023 End: 40-42-3188Ycsmjnn encounter procedureYa Thornton [facility] Start: 03-22-2023 End: 35-48-8130erwironztbMxxwfieyb L ClarkFacility:FTMCStart: 03-22-2023 End: 00-57-7366Visuesk encounter procedureYa Thornton [facility] Start: 03-09-2023 End: 16-55-0647Buz Drop offYa Thornton [facility] start: 03-09-2023 End: 11-08-5341yauayukfieMjfrvuluf L ClarkFacility:FTMCStart: 03-09-2023 End: 36-33-1940Uqhwxjj encounter procedureYa Thornton [phone]-WphkoKet[facility] Start: 02-21-2023 End: 41-05-3559Pgc Drop offYa Thornton [facility] Start: 02-21-2023 End: 02-17-0679haqofywsunTobngaccf L ClarkFacility:FTMCStart: 02-21-2023 End: 29-87-4931Otjsyty encounter procedureYa Thornton [phone]-MkpyhKettering [facility] Start: 11-30-2022 End: 28-82-5271umjiotlcwhBpwq A SteinmetzFacility:[facility] DHStart: 11-30-2022 End: 07-67-6891Iemhvof encounter procedureDaniel Gray [phone]-AknahKet[facility] Start: 56-85-0462hgeursmklvSxuosimdn Clark Facility:[facility] DHStart: 11-11-2022 End: 18-67-8697kahmtuwjmaEsyposjwi L ClarkFacility:[place] PCStart: 11-11-2022 End: 82-18-0929Ogkdwol encounter procedureYa Thronton [phone]-MkdhqKettering Health [facility] Start: 10-08-2022 End: 31-55-9057kecbhfahnbYlpexboka L ClarkFacility:MCStart: 10-08-2022 End: 83-38-6122slpwzfzqeaVyqnfllqb L ClarkFacility:[place] PCStart: 05-03-2022 End: 46-82-3264Oipxmue encounter procedureRitu Desai [phone]-SyhhxKettering Health [facility] Start: 10-19-2021 End: 36-72-7232rbyxlcikitDV SANTOSH FAZIOFacility:M4Ukrev: 10-17-2021 End: 14-71-5364cirfnqaideFU SANTOSH FAZIOFacility:V1Cjbor: 30-26-5899jmjthkcpvfHP SANTOSH FAZIOFacility:Q3Nyqvr: 07-13-2021 End: 68-98-5485ndqzaoiiukXF DOCTOR MISCFacility:X2Zjrcm: 05-06-2021 End: 66-80-2278loaizvkmjfID ERASMO KARASIKFacility:D7Saovk: 02-24-2021 End: 97-16-9294aeehuswpfvJW SANTOSH FAZIOFacility:H9Fwqgp: 01-13-2021 End: 37-26-4105knisuczncxRS SANTOSH FAZIOFacility:E9Kseca: 12-09-2020 End: 09-67-7394zyaloegevjOH SANTOSH FAZIOFacility:Q1Ujgcp: 12-02-2020 End: 80-79-1664gzjpdmkliqDX SANTOSH FAZIOFacility:H1 Procedures DateProcedureProcedure DetailPerforming ClinicianStart: 12-45-7891Qjzgd dip stick/tablet rgnt non-auto w/o micrscpCorey Joanna DO Work Phone: Start: 39-64-6973Uccho dip stick/tablet rgnt non-auto w/o micrscpAmy Brea HAYS Work Phone: Start: 81-36-6620Zmvtc dip stick/tablet rgnt non-auto w/o micrscpCorey Joanna DO Work Phone: Start: 41-89-7961APUVIYP TOLERANCE 3 HOURAmy Brea HAYS Work Phone: Start: 02-73-4678LSF CBC WITH AUTO DIFFAmy Brea HAYS Work Phone: Start: 82-50-7191Hwlbi dip stick/tablet rgnt non-auto w/o micrscpAmy Brea HAYS Work Phone: Start: 69-02-3408Kdmya dip stick/tablet rgnt non-auto w/o micrscpCorey Joanna DO Work Phone: Start: 35-07-5688UNA THYROID STIM HORMONECorey Joanna DO Work Phone: Start: 00-08-2147SRI, SERUM, OPEN SPINA BIFIDAAsusanne HAYS Work Phone: Start: 21-77-7531Zgvcb dip stick/tablet rgnt non-auto w/o micrscpCorey Joanna DO Work Phone: Start: 63-84-6475ICALQYJ 1 HOURCorey Joanna DO Work Phone: Start: 69-54-8721CVP MISCELLANEOUS TESTCorey Joanna DO Work Phone: Start: 87-29-7965LMA MISCELLANEOUS TESTCorey Joanna DO Work Phone: Start: 44-02-1371Jpesxowhbarry Campos MD Work Phone: Start: 18-64-7859CGR W Auto Differential panel - Blood Santosh R Joanna DO Work Phone: Start: 63-83-8378Sdhe scrn 1+ class nonchromoNot In System Ref ProvStart: 31-96-8484Ruemublekn glycosylated a7nJdgpx R Joanna DO Work Phone: Start: 06-03-7700Pqxgaghup c antibodyNot In System Ref ProvStart: 99-43-5063RMC 1&2 AB/AG SCREEN (P24 AG)Not In System Ref ProvStart: 94-91-9141Crex ia hepatitis b surface antigenNot In System Ref ProvStart: 84-88-4880XHUTOOWH TOTAL(UNKNOWN SYPHILIS STATUS)Not In System Ref ProvStart: 24-75-7785DCXX AND SCREENNot In System Ref ProvStart: 59-22-6803EYN CBC WITH AUTO DIFFCorey JoannaIlex Consumer Products Group Work Phone: Start: 08-17-2024 End: 68-47-7443Wbdsq dip stick/tablet rgnt non-auto w/o micrscpCorey JoannaIlex Consumer [employer] Group Work Phone: Start: 33-04-7799KHT,APTIMA HPV,AGE GDLNCorey JoannaIlex Consumer Products Group Work Phone: Start: 60-79-6511Xldnf depression screening assessment Jacklyn Campos MD Work Phone: None (qualifier value)Ritu Desai Plan of Treatment DateCare ActivityDetailAuthorStart: 98-76-4091DLtC,Tdap and Td Vaccines (8 - Td or Tdap)DTaP,Tdap and Td Vaccines (8 - Td or Tdap)[facility] CentermorphCARD SystemStart: 11-06-2025 End: 72-14-9213YZ MFM with or without consultUS MFM with or without consult Imaging Routine 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 trimester History of prior with IUGR History of premature rupture of membranes Expected: 11/06/2025 (Approximate), Expires: 11/06/2025[facility] Work Phone: comment on above:Expected: 11/06/2025 (Approximate), Expires: 11/06/2025Start: 00-29-4465Pcbpg BMI ScreeningAdult BMI Screening [facility] SystemStart: 93-76-4393Ulpvcid ScreeningTobacco Screening [facility] SystemStart: 02-13-2025 End: 53-31-8352Fvovtih encounter moojaevtp64/26/2025 10:50 AM EST Routine [facility] [address] [place] [phone] Santosh Marshall DO [address] [place] [address] NOMS [place] OBGYNStart: 02-04-2025 End: 50-78-0207Xnioomfogwrv / ancillary services xkydlwxcdg50/17/2025 8:00 AM EST Ancillary Procedure [facility] [address] [address] NOMS [place] OBGYNStart: 01-28-2025 End: 53-70-1008FY biophysical profile w non stress testUS biophysical profile w non stress test Imaging Routine Thyroid disease History of prior with IUGR Hypothyroidism, unspecified type Expected: 01/28/2025 (Approximate), Expires: 07/28/2025[facility] Work Phone: comment on above:Expected: 01/28/2025 (Approximate), Expires: 07/28/2025Start: 01-28-2025 End: 58-40-4047JH for pregnancyUS OB follow up transabdominal approach Imaging Routine Thyroid disease History of prior with IUGR Hypothyroidism, unspecified type Expected: 01/28/2025, Expires: 05/28/2025NOMS HealthcareComment on above:Expected: 01/28/2025, Expires: 05/28/2025Start: 01-28-2025 End: 33-45-5302Uplzoav encounter inonmwugg02/10/2025 8:30 AM EST Routine [facility] [address] [place], [id number] Santosh Marshall, DO [address] [place] [address] ArrivedNOMS Olga OBGYNComment on above:ArrivedStart: 01-14-2025 End: 47-18-7188Korlwbc encounter procedureNOMS Augustina OBGYNComment on above: ArrivedStart: 01-01-2025 End: 10-40-3600Dtpdihl encounter procedureNOMS BCP OBStart: 12-31-2024 End: 80-37-8297Alkfeyu encounter igqkqelhq71/13/2025 11:00 AM EDT Routine [facility] [address] [place] [address] Santosh Marshall, DO [address] [place] [address] NOMS [place] OBGYNStart: 12-31-2024 End: 64-69-9607Ufbwyddgutkx / ancillary services feqdajwkmb96/13/2025 10:30 AM EDT Ancillary Procedure [facility] [address] [place] [address] [phone] Augustina OBGYNStart: 12-17-2024 End: 96-12-7971Zgblmkg encounter zotbsrkos21/29/2025 3:00 PM EDT Office Visit [facility] [address] [place] [address] Santosh Marshall, [address] [place] [address] NOMS BCP OBStart: 12-11-2024 End: 21-55-5568Mloxvoq encounter szvveizqi02/23/2025 2:15 PM EDT Appointment [facility] [address] [place] [address] [phone] Health - UltrasoundStart: 12-10-2024 End: 40-42-7433FFV panel - Blood by Automated countCBC Lab Routine Diabetes mellitus screening Expected: 12/10/2024 (Approximate), Expires: 12/10/2025[facility] Work Phone: comment on above:Expected: 12/10/2024 (Approximate), Expires: 12/10/2025Start: 12-10-2024 End: 82-47-1247Mnexxxkaoym of glucose 1 hour after glucose challenge for glucose tolerance testGlucose tolerance, 1 hour Lab Routine Diabetes mellitus screening Expected: 12/10/2024 (Approximate), Expires: 12/10/2025[facility] HealthcareComment on above:Expected: 12/10/2024 (Approximate), Expires: 12/10/2025Start: 12-10-2024 End: 62-91-2371JV for pregnancyUS OB follow up transabdominal approach Imaging Routine Size of fetus inconsistent with dates in second trimester ([facility]) Expected: 12/10/2024, Expires: 04/11/2025[facility] HealthcareComment on above: Expected: 12/10/2024, Expires: 04/11/2025Start: 12-10-2024 End: 04-25-5927Uhjarwj encounter procedureNOMS Olga OBGYNComment on above: ArrivedStart: 11-27-2024 End: 48-45-1029Icwjpax encounter fmeacvnar00/09/2025 3:15 PM EDT Appointment [facility] [address] [place] [address] [phone]. Mary'S [facility] - UltrasoundStart: 11-20-2024 End: 84-15-5440Ebixfhx encounter pkmnryjuw19/02/2025 3:45 PM EDT Appointment [facility] [address] [place] [address] [phone] Health – [facility] US ImagingStart: 11-19-2024 Influenza vaccinationInfluenza VaccineFormerly [facility], [facility] Orthopedic Hospitaltart: 11-12-2024 End: 54-38-6997Qkeuzph encounter procedureUMESH [place] OBGYNComment on above: ArrivedStart: 11-05-2024 End: 85-27-9358Ginhefw encounter procedureUniversity Hospitals [facility] US ImagingStart: 10-21-2024 End: 26-44-8542RO MFM with or without consultUS [facility] with or without consult Imaging Routine Thyroid disease affecting History of priorpregnancy with IUGR Expected: 10/21/2024 (Approximate), Expires: 09/20/2025 [facility] Work Phone: comment on above:Expected: 10/21/2024 (Approximate), Expires: 09/20/2025Start: 10-15-2024 End: 18-27-6286Lxgua fetoprotein, maternalAlpha fetoprotein, maternal Lab Routine 17 weeks gestation of ([facility]) Expected: 10/15/2024 (Approximate), Expires: 12/16/2024[facility] Work Phone: comment on above:Expected: 10/15/2024 (Approximate), Expires: 12/16/2024Start: 10-15-2024 End: 33-95-5570Ovcmbun encounter procedureNOMS CASSANDRA OBComment on above:Arrived Start: 09-17-2024 End: 83-66-6676Arhqorwvktr of glucose 1 hour after glucose challenge for glucose tolerance testGlucose tolerance, 1 hour Lab Routine Diabetes mellitus screening Expected: 09/17/2024 (Approximate), Expires: 09/17/2025[facility] Work Phone: comment on above:Expected: 09/17/2024 (Approximate), Expires: 09/17/2025Start: 09-17-2024 End: 81-86-5770Nifqgvg encounter jaifklszn76/30/2025 10:50 AM EDT Routine [facility] [address] [place] [address] Santosh Marshall, DO [address] [place] [address] NOMS BCP OBStart: 08-17-2024 End: 19-57-1540LKF/RhABO/Rh Lab Routine Missed menses , unspecified gestational age Expected: 08/17/2024 (Approximate), Expires: 08/17/2025[facility] HealthcareComment on above:Expected: 08/17/2024 (Approximate), Expires: 08/17/2025Start: 08-17-2024 End: 11-39-0127Zazsd type and Indirect antibody screen panel - BloodType and screen Lab Routine Missed menses , unspecified gestational age Expected: 08/17/2024 (Approximate), Expires: 08/17/2025[facility] HealthcareComment on above:Expected: 08/17/2024 (Approximate), Expires: 08/17/2025Start: 08-17-2024 End: 35-75-6855Funsn of abuse panel - Urine by Screen methodRapid drug screen, urine Lab Routine , unspecified gestational age Encounter for supervision of normal first in first trimester Expected: 08/17/2024 (Approximate), Expires: 08/17/2025[facility] HealthcareComment on above:Expected: 08/17/2024 (Approximate), Expires: 08/17/2025Start: 08-09-2024 End: 57-06-4434HR Pelvis transvaginalUS OB transvaginal Imaging Routine Missed menses Expected: 08/09/2024, Expires: 11/09/2024[facility] Work Phone: comment on above:Expected: 08/09/2024, Expires: 11/09/2024Start: 85-88-6223CUARU-19 ( season)COVID-19 ( season)[facility]art: 37-31-0028YIM (#1)FLU (#1)[facility] Cent[facility]art: 14-87-1371Lpotfgkegp ScreeningDepression Screening [facility] SystemStart: 50-08-6693ayjojmpyglNrlybtckftXmnyxatu:Y3Xyjda: 58-25-1337Tevavlnjqug observation [Identifier] in Cervix by Cyto stainPap Smear [facility] Centertart: 98-11-3435Hrwthnuxo for malignant neoplasm of cervixPap SmearFormerly [facility], [facility] Orthopedic Hospitaltart: 40-18-8486Zpvqlpghf B (1 of 3 - 19+ 3-dose series)Hepatitis B (1 of 3 - 19+ 3-dose series)[facility] Start: 95-28-4621Xohlv BMI ScreeningAdult BMI ScreeningWadsworth-[facility]ittman [facility] Start: 80-15-0685ZrnA (1 of 2 - MenB 2-Dose Series Bexsero)MenB (1 of 2 - MenB 2-Dose Series Bexsero)[facility]art: 26-90-2684MIL (1 - 3-dose series)HPV (1 - 3-dose series)[facility]art: 2011 Varicella (1 of 2 - 13+ 2-dose series)Varicella (1 of 2 - 13+ 2-dose series) [facility]art: 41-40-1324Ebqxwaf ScreeningTobacco Screening [facility], [facility] Hospitaltart: 61-85-5464Ogkshwv Diphtheria and Pertussis Vaccines (1 - Tdap)Tetanus Diphtheria and Pertussis Vaccines (1 - Tdap)[facility] Cent[facility]art: 64-61-4039SHI (1 of 1 - Standard series)MMR (1 of 1 - Standard series)[facility] HospitalBacteria identified in Urine by Culture Urine culture Microbiology Routine Missed menses Ordered: 08/17/2024[facility] HealthcareComment on above:Ordered: 08/17/2024BC W Auto Differential panel - BloodCBC and differential Lab Routine Missed menses , unspecified gestational age Ordered: 08/17/2024[facility] HealthcareComment on above:Ordered: 08/17/2024HLAMYDIA TRACHOMATIS (GENITO/STI)CHLAMYDIA TRACHOMATIS (GENITO/STI) Lab Routine STD exposure Ordered: 11/12/2024[facility] HealthcareComment on above: Ordered: 11/12/2024ytology Cervical or vaginal smear or scraping studyPap Smear Pathology and Cytology Routine Well woman exam with routine gynecological exam Ordered: 12/12/2023[facility] Work Phone: comment on above:Ordered: 12/12/2023 End: 50-59-8982XEQ Extraction and [facility] Work Phone: Comment on above:1 Occurrences starting 05/14/2024 until 05/14/2024, 1 completedHemoglobin A1c/Hemoglobin.total in BloodHemoglobin A1c Lab Routine Missed menses , unspecified gestational age Ordered: 08/17/2024[facility] HealthcareComment on above:Ordered: 08/17/2024Hepatitis B virus surface Ag [Presence] in Serum or Plasma by ImmunoassayHepatitis B surface antigen Lab Routine Missed menses , unspecified gestational age Ordered : 08/17/2024[facility] HealthcareComment on above:Ordered: 08/17/2024Hepatitis C virus Ab [Presence] in Serum or Plasma by ImmunoassayHepatitis C antibody Lab Routine Missed menses , unspecified gestational age Ordered: 08/17/2024[facility] HealthcareComment on above:Ordered: 08/17/2024HIV-1/HIV-2 antigen/antibody combination immunoassayHIV-1 and HIV-2 antibodies Lab Routine Missed menses , unspecified gestational age Ordered: 08/17/2024[facility] HealthcareComment on above:Ordered: 08/17/2024Neisseria gonorrhoeae DNA [Presence] in Unspecified specimen by FRANSISCO with probe detectionNeisseria gonorrhea DNA probe, direct Lab Routine STD exposure Ordered: 11/12/2024[facility] HealthcareComment on above:Ordered: 11/12/2024Reagin Ab [Presence] in Serum by RPRRPR Lab Routine Missed menses , unspecified gestational age Ordered: 08/17/2024[facility] HealthcareComment on above:Ordered: 08/17/2024Rubella antibody, IgGRubella antibody, IgG Lab Routine Missed menses , unspecified gestational age Ordered: 08/17/2024 [facility] HealthcareComment on above:Ordered: 08/17/2024SURESWAB(R) ADVANCED VAGINITIS PLUS, TMASURESWAB(R) ADVANCED VAGINITIS PLUS, TMA Pathology and Cytology Routine Vaginal discharge Ordered: 11/12/2024[facility] Healthcare Work Phone: comment on above:Ordered: 11/12/2024Thyrotropin [Units/volume] in Serum or PlasmaTSH Lab Routine Missed menses , unspecified gestational age Encounter for supervision of normal first in first trimester Ordered: 08/17/2024[facility] HealthcareComment on above:Ordered: 08/17/2024 End: 78-61-7804Ydmtwfvrfpf [Units/volume] in Serum or PlasmaTSH Lab Routine Hypothyroidism, unspecified type 9 Occurrences starting 11/12/2024 until 11/12/2025[facility] Work Phone: comment on above:9 Occurrences starting 11/12/2024 until 11/12/2025US Pelvis transvaginalUS OB transvaginal Imaging Routine Missed menses 08/17/2024 9:27 AM [facility] Immunizations Immunization DateImmunizationNotesCare BsvmccrmIhclwaqf12-03-9093wgyfurn toxoid, reduced diphtheria toxoid, and acellular pertussis vaccine, adsorbedNancyzabemonty Thornton [phone]-AbzutJoint [facility]08-02-2016 meningococcal B vaccine, fully recombinantNancyzabeth Norberto [phone]-HwklsJoint [facility]06-27-2016 meningococcal ACWY vaccine, unspecified formulationNancyzabemonty Thornton [phone]-MmbonJoint [facility]06-27-2016 meningococcal B vaccine, fully recombinantNancyzabeth Norberto [phone]-VbjlmJoint [facility]04-04-2011 meningococcal ACWY vaccine, unspecified formulationNancyzabeth Norberto [phone]-ZvtiaJoint [facility]04-04-2011 tetanus toxoid, reduced diphtheria toxoid, and acellular pertussis vaccine, adsorbedElizabeth Norberto 231-6950Ckgjau-VoehxJoint [facility]11-12-2009 influenza virus vaccine, unspecified formulationJacklyn Campos MD Work Phone: [phone] [place], [place] 4237807-28-2004DTaP, unspecified formulationElizabeth Norberto [phone]-TtpznJoint [facility]07-28-2004 measles, mumps and rubella virus vaccineElizadaniel Thornton [phone]-TrwvzJoint [facility]07-28-2004 poliovirus vaccine, unspecified formulationElisampson Thornton 331-0833Hppkth-Xprev[address] [place], [place] 2348611-15-2000DTaP, unspecified formulationElizadaniel Thornton [phone]-Wffec[address] [place], [place] 2348611-08-1999 measles, mumps and rubella virus vaccineElizabemonty Thornton [phone]-Urxlq[address] [place], [place] 2348611-08-1999 varicella virus vaccineElizadaniel Thornton [phone]-Eksmp[address] [place], [place] 2348607-23-1999DTaP, unspecified formulationElisampson Thornton [phone]-Cmhlm[address] [place] [address] Primary Jbdr84-60-4821NXkP, unspecified formulationElizadaniel Thornton 377-0631Tkptkq-Jljjt[address] [place] [address] Primary Xvsi04-16-5333DIdI, unspecified formulationYa Thornton 178-7007Bxfqzj-Rkxuu[address] [place], [place] 2348610-31-1998 hepatitis B vaccine, pediatric or pediatric/adolescent dosageElizadaniel Thornton [phone]-QrmriKettering Health [facility]amisburg Primary CareNEGATED: Highlighted row has not occurred!90-38-5491slmhsujlz virus vaccine, unspecified formulationDaniel Gray [phone]-KduzzKettering Health Mi[facility]burg Digestive HealthNEGATED: Highlighted row has not occurred!03-18-5571islwopddk virus vaccine, unspecified formulationRitu Desai [phone]-UcwbaKettering Health [facility] Primary Care Payers DatePayer CategoryPayerPolicy [id number] [facility] [id number] - [id number] [id number] Health [id number] 2023Medicaid [facility] MEDICA[facility] [id number] Care Other (unspecified)[employer] [id number] 2.840.1.843788.3.57[id number] 2.160.1.351539.3.57[id number] 2.0.1.688497.3.57[id number] 2.840.1.084524.3.579.2.89837-30-9835Wcdrmtt2104987 2.840.1.092066.3.57[id number] 2.0.1.522247.3.57[id number] 2.0.1.298215.3.57[id number] 2.840.1.219456.3.579.2.80266-80-8778Czsandm7156252 2.840.1.928218.3.579.2.41773-12-4924Ponwzck7691192 2.840.1.387767.3.579.2.15236-93-7890Fxwgkhf97314387 2.16840.1.696148.3.579.2.59854-38-7471Gashqys92715697 2.840.1.721976.3.579.2.10404-02-7195Cnerwlt72838361 2.16840.1.192406.3.579.2.69414-20-2687Cvfuckv45566531 2.16840.1.252807.3.579.2.59228-32-4343Ykqgpvy89472466 2.16840.1.625696.3.579.2.60027-28-8183Oodgydo52212901 2.16840.1.847439.3.579.2.55531-56-8809Veagxaf21608993 2.16840.1.285514.3.579.2.31805-21-2583Cevlfec51111005 2..1.090449.3.579.2.57780-31-9705Gqwzcrv13950506 2.840.1.620985.3.579.2.58662-02-7441Jivqzcq57165812 2.840.1.539451.3.579.2.51094-38-6092Ppzlrwj72642485 2.840.1.734447.3.579.2.76380-39-4846Eympymg81878015 2..1.242272.3.579.2.24496-49-6700Oorpqta70647867 2.16840.1.624686.3.579.2.28023-72-6509Rqmrlpo41668512 2.16840.1.564741.3.579.2.21963-47-2414Cvrlrkq93587245 2.16840.1.800948.3.579.2.30843-11-0626Zbiddpt90307127 2.840.1.382017.3.579.2.24601-89-6297Ohpfkaf788230266 2.16.840.1.251655.3.579.2.98472-58-6705Arcllnk16547950 2.16.840.1.750507.3.579.2.82125-36-6439Qmzkuoe69268307 2.16.840.1.198966.3.579.2.73680-46-5743Zxlrofs87601721 2.16.840.1.540831.3.579.2.00997-76-0621Kfynmvs17447434 2.16.840.1.801062.3.579.2.22530-72-3988Ubumsta67966768 2.16.840.1.275886.3.579.2.86012-19-9890Zhxeknu27377737 2.16.840.1.195144.3.579.2.50923-17-4467Fvzvskt68479327 2.16.840.1.684551.3.579.2.79302-60-7773Fjqkwyt075896352 2.16840.1.957409.3.579.2.629615-65-7189Cqjldqt580687306 2.16.840.1.817150.3.579.2.038443-08-2268Tykjzde584158703 2.16.840.1.008807.3.579.2.203944-29-7895Tuqwxrr174285537 2.16.840.1.484852.3.579.2.449768-13-6240Eoeldud278484395 2.16.840.1.146784.3.579.2.197533-08-9169Jducsoj09067239 2.16.840.1.138526.3.579.2.978568-79-6714Leorrvm03608072 2.16.840.1.409354.3.579.2.080672-07-6861Vvcarqu17799667 2.16.840.1.018571.3.579.2.798233-65-9109Wmxcvih26292796 2.16.840.1.328087.3.579.2.757671-90-8959Nwgbecn03224524 2.16.840.1.395413.3.579.2.773505-90-4764Wezglxe11801863 2.16.840.1.837042.3.579.2.626158-77-9450Omesiaa89501862 2.16.840.1.789417.3.579.2.649031-69-4547Kkbuefb90160198 2.16.840.1.843257.3.579.2.550242-70-4030Fguflgt8125257 2.16.840.1.512992.3.579.2.177232-23-2313Hfxrdat7157103 2.16.840.1.605456.3.579.2.936705-81-9654Axyo-sfh83-42-9864Bcnvqcu874162784317 33-52-0996Qkljsoj38442766069135229Jkgyjhe6912881269940-18-5266Zhxhwdf5667130755Hydzkgq4365135 2.0.1.037832.3.579.2.320Fypetkj454517454901 Social History DateTypeDetailFacilityStart: 05-03-2022 End: 97-27-5342Fgkukjj smoking statusNever smoked tobacco (finding)[facility] CareStart: 30-61-7842Ymmjvyn smoking statusNeverGalion Hospital Primary CareStart: 07-12-2023 End: 55-14-6759Vgr Assigned At BirthFeOhioHealth Shelby Hospitaltart: 12-12-2023 End: 58-61-1213Wklbtditn beverage intakeCurrent drinker of alcohol (finding)[facility] InstituteStart: 07-12-2023 End: 43-36-6570Lqsfrre of Social functionNOMS HealthcareStart: 99-96-7631Hpystic Commentoccasional alcohol useNOMS HealthcareStart: 86-27-8740Acp assigned at birthNot on fileThe Rehabilitation InstituteTobacco smoking status NHISTobacco smoking consumption unknownFulton County Health Centerexual OrientationAdams County Hospital Start: 07-02-2009 End: 61-03-9602IaoVbzwls (finding)[facility] Hospitaltart: 06-30-2024 PregnancyNOMS HealthcareStart: 91-96-5453Pmigtdt use and exposureSmokeless tobacco non-userUniversity Hospitals TriPoint Medical Center SystemStart: 09-24-2024 End: 71-93-4697Yvlhcbbch beverage intakeEx-drinker (finding)[facility] SystemThe thought of harming myself has occurred to [facility] Medical Equipment Procedure CodeEquipment CodeEquipment Original TextEquipment IdentifierDates Glucose Test Strips, See Instructions, 1 EA, 3, Glucose Test Strips, [facility], Supply, 166, cm, 10/08/22 15:10:00 EDT, Height/Length Dosing, 57.8, kg, 10/08/22 15:10:00 EDT, Weight DosingStart: 95-74-4060Razexzd, See Instructions, 100 lancet(s), 3, Lancets, [facility] [employer] [facility], Supply, 166, cm, 10/08/22 15:10:00 EDT, Height/Length Dosing, 57.8, kg, 10/08/22 15:10:00 EDT, Weight DosingStart: 57-85-5989Kkfbrql Test Strips, See Instructions, 1 EA, 3, Glucose Test Strips, [facility], Supply, 166, cm, 10/08/22 15:10:00 EDT, Height/Length Dosing, 57.8, kg, 10/08/22 15:10:00 EDT, Weight DosingStart: 32-56-2997Gaitjjl, See Instructions, 100 lancet(s), 3, Lancets, [facility], Supply, 166, cm, 10/08/22 15:10:00 EDT, Height/Length Dosing, 57.8, kg, 10/08/22 15:10:00 EDT, Weight DosingStart: 81-25-8402Xwvqxuy Test Strips, See Instructions, 1 EA, 3, Glucose Test Strips, [facility], Supply, 166, cm, 10/08/22 15:10:00 EDT, Height/Length Dosing, 57.8, kg, 10/08/22 15:10:00 EDT, Weight DosingStart: 47-72-1340Umkmaqc, See Instructions, 100 lancet(s), 3, Lancets, [facility], Supply, 166, cm, 10/08/22 15:10:00 EDT, Height/Length Dosing, 57.8, kg, 10/08/22 15:10:00 EDT, Weight DosingStart: 56-64-5404Lcoaldv Test Strips, See Instructions, 1 EA, 3, Glucose Test Strips, [facility], Supply, 166, cm, 10/08/22 15:10:00 EDT, Height/Length Dosing, 57.8, kg, 10/08/22 15:10:00 EDT, Weight DosingStart: 00-16-9929Wrccjco, See Instructions, 100 lancet(s), 3, Lancets, [facility], Supply, 166, cm, 10/08/22 15:10:00 EDT, Height/Length Dosing, 57.8, kg, 10/08/22 15:10:00 EDT, Weight DosingStart: 99-57-7047Yrhrbmv Test Strips, See Instructions, 1 EA, 3, Glucose Test Strips, [facility] [employer], Supply, 166, cm, 10/08/22 15:10:00 EDT, Height/Length Dosing, 57.8, kg, 10/08/22 15:10:00 EDT, Weight DosingStart: 48-97-3835Slohgjq, See Instructions, 100 lancet(s), 3, Lancets, [facility], Supply, 166, cm, 10/08/22 15:10:00 EDT, Height/Length Dosing, 57.8, kg, 10/08/22 15:10:00 EDT, Weight DosingStart: 99-24-6039Ioedrjc Test Strips, See Instructions, 1 EA, 3, Glucose Test Strips, [facility], Supply, 166, cm, 10/08/22 15:10:00 EDT, Height/Length Dosing, 57.8, kg, 10/08/22 15:10:00 EDT, Weight DosingStart: 30-51-6725Xplpsth, See Instructions, 100 lancet(s), 3, Lancets, [facility], Supply, 166, cm, 10/08/22 15:10:00 EDT, Height/Length Dosing, 57.8, kg, 10/08/22 15:10:00 EDT, Weight DosingStart: 53-91-9782Nmqpyqt Test Strips, See Instructions, 1 EA, 3, Glucose Test Strips, [facility], Supply, 166, cm, 10/08/22 15:10:00 EDT, Height/Length Dosing, 57.8, kg, 10/08/22 15:10:00 EDT, Weight DosingStart: 93-76-3459Zxebuqh, See Instructions, 100 lancet(s), 3, Lancets, [facility], Supply, 166, cm, 10/08/22 15:10:00 EDT, Height/Length Dosing, 57.8, kg, 10/08/22 15:10:00 EDT, Weight DosingStart: 99-28-1991Mbaoxih Test Strips, See Instructions, 1 EA, 3, Glucose Test Strips, [facility] [employer], Supply, 166, cm, 10/08/22 15:10:00 EDT, Height/Length Dosing, 57.8, kg, 10/08/22 15:10:00 EDT, Weight DosingStart: 26-07-5625Jdcsywe, See Instructions, 100 lancet(s), 3, Lancets, [facility], Supply, 166, cm, 10/08/22 15:10:00 EDT, Height/Length Dosing, 57.8, kg, 10/08/22 15:10:00 EDT, Weight DosingStart: 00-39-8456Cenwcao Test Strips, See Instructions, 1 EA, 3, Glucose Test Strips, [employer] #37, Supply, 166, cm, 10/08/22 15:10:00 EDT, Height/Length Dosing, 57.8, kg, 10/08/22 15:10:00 EDT, Weight DosingStart: 64-76-5483Cneakab, See Instructions, 100 lancet(s), 3, Lancets, [employer] #37, Supply, 166, cm, 10/08/22 15:10:00 EDT, Height/Length Dosing, 57.8, kg, 10/08/22 15:10:00 EDT, Weight DosingStart: 80-14-1271Hsuhakh Test Strips, See Instructions, 1 EA, 3, Glucose Test Strips, [employer] #37, Supply, 166, cm, 10/08/22 15:10:00 EDT, Height/Length Dosing, 57.8, kg, 10/08/22 15:10:00 EDT, Weight DosingStart: 77-93-3602Srocnwn, See Instructions, 100 lancet(s), 3, Lancets, [employer] #37, Supply, 166, cm, 10/08/22 15:10:00 EDT, Height/Length Dosing, 57.8, kg, 10/08/22 15:10:00 EDT, Weight DosingStart: 76-84-2852Bhtvwnb Test Strips, See Instructions, 1 EA, 3, Glucose Test Strips, [facility], Supply, 166, cm, 10/08/22 15:10:00 EDT, Height/Length Dosing, 57.8, kg, 10/08/22 15:10:00 EDT, Weight DosingStart: 01-34-9144Mndnrzi, See Instructions, 100 lancet(s), 3, Lancets, [employer] #37, Supply, 166, cm, 10/08/22 15:10:00 EDT, Height/Length Dosing, 57.8, kg, 10/08/22 15:10:00 EDT, Weight DosingStart: 06-93-5883Jtrqytj Test Strips, See Instructions, 1 EA, 3, Glucose Test Strips, [employer] #37, Supply, 166, cm, 10/08/22 15:10:00 EDT, Height/Length Dosing, 57.8, kg, 10/08/22 15:10:00 EDT, Weight DosingStart: 89-39-2069Xphizbr, See Instructions, 100 lancet(s), 3, Lancets, [employer] #37, Supply, 166, cm, 10/08/22 15:10:00 EDT, Height/Length Dosing, 57.8, kg, 10/08/22 15:10:00 EDT, Weight DosingStart: 42-62-4680Npw daily as directed & as neededStart: 03-26-2021 Functional Status MbvrOdghclqqemYqewjsMwjfmjta71-19-9405Gsbggcgoyl StatusN/[facility] Zvut36-70-8665Mnrknhzyyl StatusN/[facility] Vfuq57-66-1468Ykmqltejof StatusN/[facility] Jxnk76-44-3241Tknapxojio StatusN/[facility] 33-46-7284Futbqavvvi StatusN/[facility] Kflq88-67-2338 Functional StatusN/[facility] Clinical Notes 05-03-2022 to 01-28-2025 Note Date & AdefEtquFyimbfrn93-28-0396 History of Present illness Narrative* Abril Stone [...] note reviewed. Exam conducted with a supervisor nutritional yeast present. Vitals: Estimated body mass index is 26.29 kg/m as calculated from the following: Height as of 11/29/22: 5' 5 . Weight as of this encounter: 158 lb. BP: 124/70 Patient's last menstrual period was 06/16/2024. Assessment/Plan ICD-10-CM 1. Third trimester ([facility]) Z34.93 POCT urinalysis dipstick manually resulted 2. 32 weeks gestation of ([facility]) Z3A.32 3. Thyroid disease E07.9 4. History [...] of: Santosh Marshall DO documented in this encounterThe Rehabilitation InstituteTrnbqtbnay61-56-0597 History of Present illness Narrative* Abril Stone [...] note reviewed. Exam conducted with a supervisor nutritional yeast present. Vitals: Estimated body mass index is 26.71 kg/m as calculated from the following: Height as of 23: 5' 5 . Weight as of this encounter: 160 lb 8 oz. BP: 126/72 Patient's last menstrual period was 06/16/2024. Assessment/Plan ICD-10-CM 1. Third trimester ([facility]) Z34.93 POCT urinalysis dipstick manually resulted 2. 30 weeks gestation of ([facility]) Z3A.30 Return OB: [...] of: Santosh Marshall DO documented in this encounterThe Rehabilitation InstituteOvzkjcozdc41-39-6938 History of Present illness Narrative* Daiana Villarreal [...] note reviewed. Exam conducted with a supervisor nutritional yeast present. Vitals: Estimated body mass index is 25.38 kg/m as calculated from the following: Height as of 11/29/22: 5' 5 . Weight as of this encounter: 152 lb 8 oz. BP: 106/68 Patient's last menstrual period was 06/16/2024. ASSESSMENT & PLAN ICD-10-CM 1. Third trimester ([facility]) Z34.93 POCT urinalysis dipstick manually resulted 2. 28 weeks gestation of ([facility]) Z3A.28 Patient presents today for a routine obstetrics appointment. Patient is currently 28w2d with a Estimated Date of Delivery: 03/23/25. Patient had growth scan done prior to today's appointment. Patient will start NST/BPP at 32 weeks. Patient to return to clinic in 2 weeks. Documented by Daiana Villarreal LPN on behalf of: Santosh Marshall DO documented in this encounterThe Rehabilitation InstituteRdgsdofcuf83-88-9054 History of Present illness Narrative* LIS Man [...] ASSESSMENT & PLAN ICD-10-CM 1. Second trimester ([facility]) Z34.92 POCT urinalysis dipstick manually resulted 2. 25 weeks gestation of ([facility]) Z3A.25 3. Diabetes mellitus screening Z13.1 CBC [...] of: LIS Man documented in this encounterNOMS Uhpjrdavrk29-88-3691 History of Present illness Narrative* Abril Stone, [...] note reviewed. Exam conducted with a supervisor nutritional yeast present. Vitals: Estimated body mass index is 23.15 kg/m as calculated from the following: Height as of 11/29/22: 5' 5 . Weight as of this encounter: 139 lb 1.9 oz. BP: 110/72 Patient's last menstrual period was 06/16/2024. ASSESSMENT & PLAN ICD-10-CM 1. Second trimester ([facility]) Z34.92 POCT urinalysis dipstick manually resulted 2. 21 weeks gestation of ([facility]) Z3A.21 POCT urinalysis dipstick manually resulted 3. [...] 4 weeks; She is followed closely per [facility] with history of hypothyroidism. Will obtain growth ultrasounds every 4 weeks and begin NST/BPP at 32 weeks. Documented by Abril Stone NP on behalf of: Santosh Marshall DO documented in this encounterThe Rehabilitation InstituteDrzavokubg06-83-8000 History of Present illness Narrative* Nadira Salazar [...] risk Have you been seen here at [facility] in a previous ? Recent ER visits or hospitalizations? No Bring blood sugar log or meter with you today? (Please bring them with you for every visit at [facility]) NA Flu vaccine (Jan-May)? NA Any [...] Campos MD, FACOG (she/hers) Maternal- Medicine [facility] [address] [place] [address] This document was created with [employer] technology. Though I make every effort to review the dictation as it is transcribed, on occasion the spoken word can be misinterpreted by the technology leading to inappropriate words, phrases, or sentences. This note is addressed to the requesting provider as a consultation for clinical guidance. Specificmedical abbreviations are occasionally used and those are generally approved by the [place]?Board of?Obstetrics and?Gynecology?as well as?Lucy campos abbreviations. The above plan of care was based solely on the diagnoses for which a consultation was requested. ?More frequent testing may be indicated based on her other medical/obstetrical conditions. The management of other or medical conditions is beyond the scope of requested consultation and will c ontinue to be followed by the primary engineering group manager or primary care provider. Note to [...] practitioner. documented in this encounterAvita Health System Ontario HospitalPubCoder Ovttvs59-39-0111 History of Present illness Narrative* LIS Man [...] ASSESSMENT & PLAN ICD-10-CM 1. Second trimester ([facility]) Z34.92 2. 17 weeks gestation of ([facility]) Z3A.17 POCT urinalysis [...] behalf of: LIS Man documented in this encounterThe Rehabilitation InstituteBfgwoarrls46-83-3359 History of Present illness Narrative* Aliya JeronimoKALE [...] note reviewed. Exam conducted with a supervisor nutritional yeast present. Vitals: Estimated body mass index is 22.1 kg/m as calculated from the following: Height as of 11/29/22: 5' 5 . Weight as of this encounter: 132 lb 12.8 oz. BP: 112/70 Patient's last menstrual period was 06/16/2024. ASSESSMENT & PLAN ICD-10-CM 1. 13 weeks gestation of ([facility]) Z3A.13 2. Second trimester ([facility]) Z34.92 3. Thyroid [...] or undercooked meat, and stay away [facility]. Patient has been consulted regarding any further do's and don'tsof . Patient voiced understanding and all questions and concerns were answered. Pt has h/o IUGR, thyroid disease, pt being referred to [facility] for level II ultrasound. Pt should be taking 125mcg of levothyroxine. Pt voiced understanding. Pt to start baby aspirin. Orders Placed This Encounter Procedures Glucose tolerance, 1 hour Follow Up: Patient is to return in 4 weeks for routine OB appointment. Documented by Aliya Jeronimo LPN on behalf of: Santosh Marshall DO documented in this encounterThe Rehabilitation InstituteBxlqoohszm18-20-0218 History of Present illness Narrative* Carmita Tapia, ENGINEERING ADMINISTRATOR - 08/17/2024 9:30 AM EDT Reason for [...] or undercooked meat, and stay away [facility]. Patient has also been advised to not change litter boxes and eat 6 small meals a day. Patient has been consulted regarding the do's and don'ts ofpregnancy. Patient was given labs and all questions and concerns were answered. Patient was sent in Magnesium for headaches. Patient given [place] labs to do with initial labs along [...] by: Carmita Tapia LPN documented in this encounterThe Rehabilitation InstitutePwkmgsuizg32-10-0841 NotePatient Education Endocrinology Hypothyroidism Hypothyroidism is when [...] Follow these instructions at home: ??? Take dkri-qqo-uxzeuzi and prescription medicines only as told by [...] Reviewed: 03/09/2022 Elsevier Patient Education ? 2023 [employer] Obstetrics and Gynecology Health Maintenance, Female Adopting a healthy lifestyle and getting preventive care are important in promoting health and wellness. Ask your health care provider about: ??? The right schedule for you to have regular tests and exams. ??? Things (more content not included)...[facility]04-17-2025 NotePatient Education ENT How to [...] cannot use soap and water, use hand graphic user interface designer. 2. Wash your device using the directions [...] provider. Document Revised: 08/24/2021 Document Reviewed: 08/24/2021 [employer] Patient Education ? 2023 [employer]. Infectious Disease Sinus Infection, Adult A sinus [...] this diagnosed? Your s (more content not included)...[facility]09-23-2024 History of Present illness Narrative* [...] Diagnosis Date BMI 23.0-23.9, adult Thyroid disease ([facility]) Well woman exam HISTORY PAST MEDICAL [...] note reviewed. Exam conducted with a supervisor nutritional yeast present. Vitals: Estimated body mass index is [...] of: Santosh Marshall DO documented in this encounterThe Rehabilitation InstituteDxoefabexn24-03-8493 Hospital Discharge instructions Patient Education 08/08/2023 16:25:47 [...] to help relieve pain. General instructions Take shmp-lfw-idehefr and prescription medicines only as told by [...] provider. Document Revised: 10/22/2020 Document Reviewed: 10/22/2020 [employer] Patient Education 2022 [employer]. 08/08/2023 16:25:44 Hemorrhoids Hemorrhoids Hemorrhoids are swollen [...] 3 times a day. General instructions Take zeqd-neq-exzlhct and prescription medicines only as told by [...] provider. Document Revised: 09/16/2021 Document Reviewed: 09/16/2021 [employer] 2022 [place]. 08/08/2023 16:25:43 Urinary Tract Infection, Adult Urinary [...] Treatment for this condition includes: Antibiotic medicine. Vlwm-zur-ymfkajv medicines to treat discomfort. Drinking enough water [...] Follow these instructions at home: Medicines Take pijh-dau-lerstgm and prescription medicines only as told by [...] provider. Document Revised: 10/17/2020 Document Reviewed: 10/17/2020 [employer] 2022 [place]. 08/08/2023 16:25:41 Hypothyroidism Hypothyroidism Hypothyroidism is when [...] away. Follow these instructions at home: Take zgmc-uvg-nswjjaq and prescription medicines only as told by [...] provider. Document Revised: 03/09/2022 Document Reviewed: 03/09/2022 [employer] 2022 [place]. [facility] 05-20-2024 Evaluation + Plan note Future Scheduled Tests Laboratory* UA with Cult Rflx 08/08/23 * CBC w/ Auto Diff 02/08/24 * Comprehensive Metabolic Panel 02/08/24 * Thyroid Stimulating Hormone 02/08/24 * Thyroid Stimulating Hormone 05/16/23 * Free T4 02/08/24 * Free T4 05/16/23 [facility] 12-20-2023 Hospital Discharge instructions Patient [...] including vitamins, herbs, eye drops, creams, and gaqa-ikj-ozngnna medicines. ?Whether you are or may be [...] provider. Document Revised: 11/18/2021 Document Reviewed: 10/10/2020 [employer] Patient Education 2022 [place]. 03/09/2023 08:08:48 Urinary Tract Infection, Adult Urinary [...] Treatment for this condition includes: Antibiotic medicine. Dekg-yfw-mpopaxl medicines to treat discomfort. Drinking enough water [...] Follow these instructions at home: Medicines Take rdyv-hgh-xwmbffg and prescription medicines only as told by [...] provider. Document Revised: 10/17/2020 Document Reviewed: 10/17/2020 [employer] Patient Education 2022 [place]. 03/09/2023 08:08:46 Hypothyroidism Hypothyroidism Hypothyroidism is when [...] away. Follow these instructions at home: Take ksnv-tes-soqtyjh and prescription medicines only as told by [...] provider. Document Revised: 03/09/2022 Document Reviewed: 03/09/2022 [employer] Patient Education 2022 [place]. Follow Up Care 03/07/2023 12:06:45 With:Ya Wang FAM, [facility] Address: [address], [address] [place] [phone] Business (1) When:05/25/2023 Comments:for f/u [facility] 12-04-2023 Hospital Discharge instructions Patient [...] Follow these instructions at home: Medicines Take dsiq-xsb-egsdtza and prescription medicines only as told by [...] provider. Document Revised: 10/17/2020 Document Reviewed: 10/17/2020 [employer] Patient Education 2022 [place]. Follow Up Care 02/21/2023 08:19:47 With:Ya Wang FAM, MED Address: [address] [place], [place] [phone] Business (1) When:05/25/2023 Comments:for f/u [facility] 09-12-2023 Hospital Discharge instructions Patient [...] Bulgur wheat. Millet. Quinoa. Bran muffins. Popcorn. [place] wafer crackers. Meats and other proteins [place] beans, kidney beans, and díaz beans. Soybeans. [...] Cream cheese. Sour cream. Fats and oils [place]. Beverages Soft drinks. Other foods Cakes and [...] Document Reviewed: 07/10/2020 Elsevier Patient Education 2022 [place]. Follow Up Care 11/11/2022 12:10:41 With:Daniel Gray CNP Address: When:2 weeks Comments:Following EGD/Colonoscopy. [facility] 08-24-2023 Hospital Discharge instructions Patient [...] per serving. Talk with a diet and child nutrition assistant (dietitian) if you have questions about specific [...] Bulgur wheat. Millet. Quinoa. Bran muffins. Popcorn. [place] wafer crackers. Meats and other proteins [place], kidney, and díaz beans. Soybeans. Split peas. [...] Cream cheese. Sour cream. Fats and oils [place]. Beverages Soft drinks. Other foods Cakes and [...] 03/07/2006 Document Revised: 01/09/2018 Document Reviewed: 01/09/2018 [employer] Patient Education 2020 [place]. 11/11/2022 01:00:54 Hemorrhoids Hemorrhoids Hemorrhoids are swollen [...] 3 times a day. General instructions Take zaub-hrq-xzdmhhv and prescription medicines only as told by [...] provider. Document Revised: 09/16/2021 Document Reviewed: 09/16/2021 [employer] Patient Education 2022 [place]. Follow Up Care 11/08/2022 14:59:04 With:Ya Wang FAM, [facility] Address: [address] [place] [address] [facility] (1) When:Within 3 Month(s) Comments:3 mo f/u [facility] 02-13-2023 Hospital Discharge instructions Patient [...] away. Follow these instructions at home: Take ebvx-pch-inlczzu and prescription medicines only as told by [...] 03/07/2006 Document Revised: 02/17/2018 Document Reviewed: 02/15/2018 [employer] Patient Education On-Q-ity. Follow Up Care 04/05/2022 12:35:49 With:Ritu Desai CNP Address: [address] [place] [phone] When:1 year Comments:or sooner if needed. [facility] Evaluation + Plan note No data available for this section [facility] Evaluation + Plan note Future Appointments Appointment Date:11/30/2022 12:00:00 PM Scheduled Provider:Daniel Gray CNP [facility] Appointment Type:BAD New Patient Appointment Date:04/04/2023 01:00:00 PM Scheduled Provider:Ya Wang Location:[facility] Appointment Type: Open Future Scheduled Tests Laboratory* TSH With T4fr Reflex 10/08/22 [facility] Evaluation + Plan note Future Appointments Appointment Date:04/04/2023 01:00:00 PM Scheduled Provider:Ya Wang Location:[facility] Appointment Type:FM Open Future Scheduled Tests Laboratory* TSH With T4fr Reflex 10/08/22 [facility] Evaluation + Plan note Future Appointments Appointment Date:07/25/2023 10:00:00 AM Scheduled Provider:Ya Wang Location:[facility] Appointment Type:FM Open Future Scheduled Tests Laboratory* T3 Free 02/21/23 * Thyroid Stimulating Hormone 02/21/23 * Free T4 02/21/23 [facility] Evaluation + Plan note Future Appointments Appointment Date:07/25/2023 10:00:00 AM Scheduled Provider:Ya Wang Location:[facility] Appointment Type:FM Open Diagnostic Tests Pending * Urine Culture 02/21/23 Future Scheduled Tests Laboratory* T3 Free 02/21/23 * Thyroid Stimulating Hormone 02/21/23 * [facility] T[facility] Appointment Date:07/25/2023 10:00:00 AM Scheduled Provider:Ya Wang [facility] Type:FM Open Future Scheduled Tests Laboratory* T3 Free 02/21/23 * Thyroid Stimulating Hormone 02/21/23 * Free T4 02/21/23 Radiology* US Retroperitoneal Complete 03/09/23 [facility] Evaluation + Plan note Future Appointments Appointment Date:07/25/2023 10:00:00 AM Scheduled Provider:Ya Wang [facility] Appointment Type:FM Open Diagnostic Tests Pending * Urine Culture 03/09/23 Future Scheduled Tests Laboratory* T3 Free 02/21/23 * Thyroid Stimulating Hormone 02/21/23 * Free T4 02/21/23 Radiology* US Retroperitoneal Complete [facility]09[facility] Appointment Date:07/12/2023 09:30:00 AM Scheduled Provider:OPAL LUZ PA-C Location:[facility] Appointment Type:URO New Patient Appointment Date:07/25/2023 10:00:00 AM Scheduled Provider:Ya Wang [facility] Type:[facility] Open Diagnostic Tests Pending * T3 Free [facility]22[facility]ments Appointment Date:07/12/2023 09:30:00 AM Scheduled Provider:OPAL LUZ PA-C Location:[facility] Appointment Type:URO New Patient Appointment Date:07/25/2023 10:00:00 AM Scheduled Provider:Ya Wang [facility]ments Appointment Date:07/25/2023 10:00:00 AM Scheduled Provider:Ya Wang Location:[facility] Appointment Type:FM Open Future Scheduled Tests Laboratory* Thyroid Stimulating Hormone 05/16/23 * Free T4 05/16/23 [facility] evaluation + Plan note Future Scheduled Tests Laboratory* CBC w/ Auto Diff 02/08/24 * Comprehensive Metabolic Panel 02/08/24 * Thyroid Stimulating Hormone 02/08/24 * Free T4 02/08/24 [facility] Appointment Date:07/09/2024 08:00:00 AM Scheduled Provider:Marta Rivas Location:[facility] Appointment Type:FM New Patient - Adult Future Scheduled Tests Laboratory* CBC w/ Auto Diff 02/08/24 * Comprehensive Metabolic Panel 02/08/24 * Thyroid Stimulating Hormone 02/08/24 * Free T4 02/08/24 [facility] Evaluation note* Diagnosis Well woman exam with routine gynecological exam Routine gynecological examination [facility] Family history of autism Family history of psychiatric condition [facility] Diagnosis Missed menses , unspecified gestational age Encounter for supervision of normal first in first trimester Nonintractable headache, unspecified chronicity pattern, unspecified headache type documented in this encounter [facility]* Diagnosis 13 weeks gestation of (HHS-HCC) Second trimester (HHS-HCC) state, incidental Thyroid disease Unspecified disorder of thyroid History of prior with IUGR Diabetes mellitus screening Screening for diabetes mellitus documented in this encounter [facility]* Diagnosis Thyroid disease affecting - Primary History of prior with IUGR [facility]* Diagnosis Second trimester (HHS-HCC) state, incidental 17 weeks gestation of (HHS-HCC) documented in this encounter [facility]* Diagnosis 20 weeks gestation of [...] membranes documented in this encounter [facility]* Diagnosis 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 trimester- Primary History of prior with IUGR History of premature rupture of membranes documented in this encounter [facility]* Diagnosis Hypothyroidism, unspecified type- Primary Second trimester (HHS-HCC) state, incidental 21 weeks gestation of (HHS-HCC) Vaginal discharge Leukorrhea, not specified as infective STD exposure documented in this encounter [facility]* Diagnosis Size of fetus inconsistent with dates in second trimester (HHS-HCC)- Primary Second trimester (HHS-HCC) state, incidental 25 weeks gestation of (HHS-HCC) Diabetes mellitus screening Screening for diabetes mellitus documented in this encounter [facility]* Diagnosis Third trimester (HHS-HCC) state, incidental 28 weeks gestation of (HHS-HCC) documented in this encounter [facility]* Diagnosis Third trimester (HHS-HCC) state, incidental 30 weeks gestation of (HHS-HCC) documented in this encounter [facility]* Diagnosis Third trimester (HHS-HCC) state, incidental 32 weeks gestation of (HHS-HCC) Thyroid disease Unspecified disorder of thyroid History of prior with IUGR Hypothyroidism, unspecified type [facility] No data available for this section [facility] filedocumented [facility] filedocumented in this [facility] filedocumented in [facility] No data available for this section [facility] Summary Purpose Family History No [...] InactivatedComments04/21/2021 7:00 PM2 1:57 PMDate Activated Date HivfppehzlvQidinnkn40/14/2021 5:01 PM03/26/2021 7:46 PMDate ActivatedDate InactivatedComments05/30/2021 7:15 AM06/01/2021 2:55 PMDate ActivatedDate InactivatedComments05/12/2021 1:10 PM2 2:16 PMDate ActivatedDate InactivatedComments04/21/2021 7:00 PM2 1:57 PMDate ActivatedDate RvrjmxbxmrlKheqazgg13/14/2021 5:01 PM03/26/2021 7:46 PM Additional Source Comments INFORMATION SOURCE (unrecogn ized section and content) DATE CREATED AUTHOR 11/15/2021 [facility] DATE CREATED AUTHOR AUTHOR'S ORGANIZ ATION 09/09/2023 [facility] DATE CREATED AUTHOR AUTHOR'S ORGANIZ ATION 05/21/2024 [facility] DATE CREATED AUTHOR AUTHOR'S ORGANIZ ATION 07/06/2024 [facility] DATE CREATED AUTHOR AUTHOR'S ORGANIZ ATION 07/10/2024 [facility] DATE CREATED AUTHOR AUTHOR'S ORGANIZ ATION 07/13/2024 [facility] DATE CREATED AUTHOR AUTHOR'S ORGANIZ ATION 11/21/2024 [facility] DATE CREATED AUTHOR AUTHOR'S ORGANIZ ATION 12/12/2024 [facility] DATE CREATED AUTHOR AUTHOR'S ORGANIZ ATION 01/28/2025 [facility] EPIC Patient Care team informatio n (unrecognized section and content) Team MemberRelationshipSpecialtyStart DateEnd Date Satci White MD [address] [place] [address] PCP - GeneralInternal Medicine11/29/22Team MemberRelationshipSpecialtyStart Date End Date Satci White MD [address] [place] [address] PCP - GeneralInternal Medicine11/29/22Team MemberRelationshipSpecialtyStart Date End Date Staci White MD [address] [place] [address] PCP - GeneralInternal Medicine11/29/22Team MemberRelationshipSpecialtyStart Date End [place] [address] Attending ProviderMedical Clinical Genetics05/14/24Team MemberRelationship SpecialtyStart DateEnd Date Staci White MD [address] [place] [address] PCP - GeneralInternal Medicine11/29/22am MemberRelationshipSpecialtyStart Date End Date Staci White MD [address] [place] [address] PCP - GeneralInternal Medicine11/29/22am MemberRelationshipSpecialtyStart Date End Date Staci White MD [address] [place] [address] PCP - GeneralInternal Medicine11/29/22am MemberRelationshipSpecialtyStart Date End Date Staci White MD [address] [place] [address] PCP - GeneralInternal Medicine11/29/22am MemberRelationshipSpecialtyStart Date End Date Staci White MD PCP - GeneralInternal Medicine04/07/21am MemberRelationshipSpecialtyStart Date End Date Staci White MD [address] [place] [address] PCP - GeneralInternal Medicine11/29/22am MemberRelationshipSpecialtyStart Date End Date Staci White MD PCP - GeneralInternal Medicine04/07/21am MemberRelationshipSpecialtyStart Date End Date Staci White MD PCP - GeneralInternal Medicine04/07/21Te MemberRelationshipSpecialtyStart Date End Date Staci White MD [address] [place] [address] PCP - [facility]11/29/22Te MemberRelationshipSpecialtyStart Date End Date Staci White MD [address] [place] [address] PCP - GeneralInternal [facility]11/29/22Te MemberRelationshipSpecialtyStart Date End Date Staci White MD [address] [place] [address] [facility]11/29/22Te MemberRelationshipSpecialtyStart Date End Date Staci White MD [address] [place] [address] [facility]11/29/22Te MemberRelationshipSpecialtyStart Date End Date Staci White MD [address] [place] [address] PCP - [facility]United [facility]11/29/22 Reason for Visit (unrecogniz ed section [...] BE BASED ON THE PRIMARY CLINICAL RECORDS. [facility] [employer] [facility]. provides no warranty or guarantee of the accuracy or completeness of information in this document.
[2025-02-19 13:37] VITALS: BP 109/65; PULSE 95
== END 2025-02-19 14:30 | disposition home or self-care (01) ==
LOC: US 13:03 → FBC 13:06
PROVIDERS: Visit Provider Obstetrics & Gynecology
DX: O99.283 Endocrine, nutritional and metabolic diseases complicating pregnancy, third trimester (principal)
CPT/HCPCS: 76818

== ENCOUNTER 2025-02-21 02:29 | Inpatient (IN) | payer BC, SELFPAY ==
[2025-02-21] VITALS (17 sets, daily range): BP systolic 110–124; BP diastolic 65–74; PULSE 69–88; TEMP 36.5–36.8
--- OUTSIDE RECORDS SUMMARY | 2025-02-21 02:34 | XMS_ITS | CCD ---
Author Organization [facility] Care Team Providers Care Board Runner Name Role Phone JOANNA, DR VILLATORO Admitting [...] DR LAURA Primary Care Unavailable JOANNA, DR IVLLATORO Admitting Unavailable JOANNA, DR VILLATORO Attending Unavailable [...] Primary Care Provider Carmita Jurado MD Unavailable [phone] CARMITA JURADO Referring Unavailable CARMITA JURADO Attending Unavailable Alba Thorntonbemonty Alexandre Primary Care Physician [phone] Marta Almanzar Attending Unavailable Marta Almanzar Admitting [...] Unavailable STACI WHITE Primary Care Unavailable SANTOSH MRASHALL Referring Unavailable STACI WHITE Primary Care Unavailable SANTOSH MARSHALL Referring Unavailable STACI WHITE Primary Care Unavailable SANTOSH MARSHALL Referring Unavailable STACI WHITE Primary Care Unavailable Staci White MD Primary Care Provider [phone] SANTOSH MARSHALL Attending Unavailable ERUM GUIDRY Attending Unavailable SANTOSH MARSHALL Attending Unavailable ERUM GUIDRY Attending Unavailable SANTOSH MARSHALL Attending Unavailable SANTOSH MARSHALL Attending Unavailable SANTOSH MARSHALL Attending Unavailable Medications Current Medications MedicationDrug Class(es)DatesSig (Normalized)Sig (Original)acetaminophen 500 mg oral tablet (3 sources)Start: 33-82-2499jaiw 2 tablets by mouth every eight hours [...] oral capsule (2 sources)Cephalosporin AntibacterialStart: 03-09-2023 End: 23-18-2645fhar 1 capsule by mouth four times dailyKeflex 500 mg Cap 500 mg = 1 cap(s), Oral, QID, X 7 day(s), # 28 cap(s), Refills(s) 0, Pharmacy: [facility], 166, cm, 03/09/23 7:33:00 EST, Height/Length Dosing, 58.7, kg, 03/09/23 7:33:00 EST, Weight Dosing Start Date: 03/09/23 Stop Date: 03/16/23 Status: OrderedColace (3 sources)Start: 81-20-6477Refyku Refills(s) 0 Start Date: 11/30/22 Status: OrderedStart: 06-01-2021 End: 83-27-2453alqh 1 capsule by mouth in the morning, then take 1 capsule by mouth at bedtimedocusate sodium (COLACE) 100 mg capsule Take 1 capsule (100 mg total) by mouth in the morning and 1capsule (100 mg total) before bedtime. 10 capsule 06/01/2021 11/05/2024 Discontinued (Therapy completed)Flonase (3 sources)CorticosteroidStart: 61-53-8172Rtwcrkq Nasal, Daily, Refill(s) 0 Start Date: 09/10/18 Status: OrderedFREESTYLE LITE METER kit (3 sources)Start: 40-42-4865PMEFVPMHB LITE METER kit See Admin Instructions. 03/26/2021 Activehydrocortisone acetate 0.025 mg/mg / lidocaine hydrochloride 0.03 mg/mg rectal gel (2 sources)Antiarrhythmic, Corticosteroid, Amide Local AnestheticStart: 05-42-6752ngiiyvycvuzspr-lidocaine 2.5%-3% rectal gel with applicator 1 carmen, Rectal, BID, 60 EA, Refill(s) 1,[id number], 166, cm, 11/11/22 9:28:00 EDT, Height/Length Dosing, 59.4, kg, 11/11/22 9:28:00 EDT, Weight Dosing Start Date: 11/19/22 Status: OrderedStart: 46-13-3745mnuhpuesljtsti-lidocaine 2.5%-3% rectal gel with applicator 1 carmen, Rectal, BID, 60 EA, Refill(s) 1,[facility], 166, cm, 11/11/22 9:28:00 EDT, Height/Length Dosing, 59.4, kg, 11/11/22 9:28:00 EDT, Weight Dosing Start Date: 11/11/22 Status: Orderedlevothyroxine sodium 0.125 mg oral tablet (20 sources)l-ThyroxineStart: 09-17-2024 End: 05-87-7982dgfj 1 tablet by mouth before mealtimelevothyroxine (Synthroid) 125 MCG tablet Indications: Thyroid disease Take 1 tablet (125 mcg) by mouth in the morning. Take before meals. 30 tablet 11 09/17/2024 09/17/2025 ActiveStart: 08-22-2024 End: 39-54-6197fqdd 1 tablet by mouth before mealtimelevothyroxine (Synthroid) 25 MCG tablet Indications: Thyroid disease Take 1 tablet (25 mcg) by mouth in the morning. Take before meals. 30 tablet 11 08/22/2024 10/15/2024 Discontinued Start: 49-93-4405kukw 1 tablet by mouth once dailySynthroid 100 mcg Tab 100 mcg = 1 tab(s), Oral, Daily, # 90 tab(s), Refills(s) 0, Pharmacy: [facility], 166, cm, 08/08/23 15:44:00 EDT, Height/Length Dosing, 56.1, kg, 08/08/23 15:51:00 EDT, Weight Dosing Start Date: 06/19/24 Status: Ordered Quantity: 90.0 Unit: tab(s) Repeat number: 1Start: 06-19-2024 End: 73-97-2573qrsh 1 tablet by mouth once dailylevothyroxine (Synthroid, Levoxyl) 100 MCG tablet Take 100 mcg by mouth Daily 06/19/2024 10/15/2024 DiscontinuedStart: 91-02-2788xatf 1 tablet by mouth once dailySynthroid 100 mcg Tab 100 mcg = 1 tab(s), Oral, Daily, # 90 tab(s), Refills(s) 1, Pharmacy: [facility], 166, cm, 05/16/23 14:25:00 EST, Height/Length Dosing, 56.7, kg, 05/16/23 14:25:00 EST, Weight Dosing Start Date: 05/16/23 Status: OrderedStart: 86-14-7442cpci 1 tablet by mouth once dailySynthroid 112 mcg Tab 112 mcg = 1 tab(s), Oral, Daily, # 60 tab(s), Refills(s) 0, Pharmacy: [facility], 166, cm, 11/30/22 12:12:00 EDT, Height/Length Dosing, 58.8, kg, 11/30/22 12:12:00 EDT, Weight Dosing Start Date: 02/07/23 Status: OrderedStart: 89-10-2389kdal 1 tablet by mouth once dailySynthroid 112 mcg Tab 112 mcg = 1 tab(s), Oral, Daily, # 60 tab(s), Refills(s) 0, Pharmacy: [facility], 166, cm, 10/08/22 15:10:00 EDT, Height/Length Dosing, 57.8, kg, 10/08/22 15:10:00 EDT, Weight Dosing Start Date: 10/08/22 Status: OrderedStart: 10-08-2022 End: 01-24-3345zjca 1 tablet by mouth in the morninglevothyroxine (Synthroid, Levoxyl) 112 MCG tablet Take 112 mcg by mouth in the morning. 10/08/2022 0 08/17/2024 DiscontinuedStart: 86-24-2389wfax 1 tablet by mouth once daily levothyroxine 125 mcg (0.125 mg) Tab 125 mcg = 1 tab(s), Oral, Daily, # 90 tab(s), Refills(s) 3, Pharmacy: [facility], 166, cm, 05/03/22 14:21:00 EST, Height/Length Dosing, 61.2, kg, 05/03/22 14:21:00 EST, Weight Dosing Start Date: 05/03/22 Status: Orderedlevothyroxine (SYNTHROID, LEVOTHROID) 100 MCG tablet Take 125 mcg by mouth in the morning. Activeloratadine 10 mg oral tablet (13 sources)Start: 65-71-0110lxfa 1 tablet by mouth once dailyClaritin 10 mg Tab 10 mg, Oral, Daily, # 10 tab(s), Refills(s) 0, Pharmacy: [facility], 166, cm, 12/05/19 13:03:00 EDT, Height/Length Dosing, 61.6, kg, 12/05/19 13:03:00 EDT, Weight Dosing Start Date: 12/05/19 Status: Ordered Quantity: 10.0 Unit: tab(s) Repeat number: 1magnesium oxide 400 mg oral tablet (5 sources)Start: 08-17-2024 End: 84-16-5811guyn 1 tablet by mouth once dailymagnesium oxide (Mag-Ox) 400 MG tablet Indications: Nonintractable headache, unspecified chronicitypattern, unspecified headache type Take 1 tablet (400 mg) by mouth Daily 30 tablet 6 08/17/2024 09/16/2024 Activephenazopyridine hydrochloride 200 mg oral tablet (4 sources)Start: 03-09-2023 End: 26-37-7785mpqm 1 tablet by mouth three times dailyPyridium 200 mg Tab 200 mg = 1 tab(s), Oral, TID, X 3 day(s), # 9 tab(s), Refills(s) 0, Pharmacy: [facility], 166, cm, 03/09/23 7:33:00 EST, Height/Length Dosing, 58.7, kg, 03/09/23 7:33:00 EST, Weight Dosing Start Date: 03/09/23 Stop Date: 03/12/23 Status: OrderedStart: 02-21-2023 End: 19-00-6192xexy 1 tablet by mouth three times dailyPyridium 200 mg Tab 200 mg = 1 tab(s), Oral, TID, X 3 day(s), # 9 tab(s), Refills(s) 0, Pharmacy: [facility], 166, cm, 02/21/23 13:06:00 EST, Height/Length Dosing, 58.6, kg, 02/21/23 13:06:00 EST, Weight Dosing Start Date: 02/21/23 Stop Date: 02/24/23 Status: OrderedPNV no.95/ferrous fum/folic ac ( ORAL) (3 sources)PNV no.95/ferrous fum/folic ac ( ORAL) Take by mouth in the morning. ActivePNV no.95/ferrous fum/folic ac ( ORAL) Take by mouth daily. Activepolyethylene glycol 3350 000206 mg / potassium chloride 1480 mg / sodium bicarbonate 5720 mg / sodium chloride 32282 mg powder for oral solution (11 sources)Osmotic LaxativeStart: 08-36-7444XkRZJCKT Paige oral powder for reconstitution See Instructions, 1 EA, Refill(s) 0, Prior to colonoscopy., [facility] #[id number], 166, cm, 11/30/22 12:12:00 EDT, Height/Length Dosing, 58.8, kg, 11/30/22 12:12:00 EDT, Weight Dosing Start Date: 11/30/22 Status: Ordered Quantity: 1.0 Unit: EA Repeat number: 1Prenatal MV-Min-Fe Fum-FA-DHA ( 1 PO) (20 sources) MV-Min-Fe Fum-FA-DHA ( 1 PO) Take by mouth Active Completed/Discontinued Medications MedicationDrug Class(es)DatesSig (Normalized)Sig (Original)ibuprofen 800 mg oral tablet (2 sources)Nonsteroidal Anti-inflammatory DrugStart: 06-01-2021 End: 32-53-4057hhrz 1 tablet by mouth every eight hours as neededibuprofen (ADVIL,MOTRIN) 800 mg tablet Take 1 tablet (800 mg total) by mouth every 8 (eight) hours as needed (cramping). 30 tablet 06/01/2021 11/05/2024 Discontinued (Therapy completed)nitrofurantoin, macrocrystals 25 mg / nitrofurantoin, monohydrate 75 mg oral capsule (6 sources)Nitrofuran AntibacterialStart: 09-11-2024 End: 06-80-6915muyn 1 capsule by mouth in the morningnitrofurantoin, macrocrystal-monohydrate, (Macrobid) 100 MG capsule Indications: Urinary tract infection without hematuria, site unspecified Take 1 capsule (100 mg) by mouth in the morning and 1 capsule (100 mg) before bedtime. Do all this for 7 days. 14 capsule 09/11/2024 09/18/2024 ExpiredStart: 02-21-2023 End: 71-44-4553jubv 1 capsule by mouth every twelve hoursMacrobid 100 mg Cap 100 mg = 1 cap(s), Oral, q12hr, X 5 day(s), # 10 cap(s), Refills(s) 0, Pharmacy: [facility], 166, cm, 02/21/23 13:06:00 EST, Height/Length Dosing, 58.6, kg, 02/21/23 13:06:00 EST, Weight Dosing Start Date: 02/21/23 Stop Date: 02/26/23 Status: Orderedprogesterone (FIRST-PROGESTERONE VGS) 200 mg suppository (2 sources)Start: 03-26-2021 End: 71-63-4466utjkoopiicyc (FIRST-PROGESTERONE VGS) 200 mg suppository Indications: Hypothyroid [...] Problems Problem ClassificationProblemDateDocumented DateEpisodic/ChronicAbdominal pain (13 sources)Abdominal mxab85-49-7909LisevcciDkkytieba infection; unspecified site (1 source)Infection due to Escherichia coli; Translations: [Unspecified Escherichia coli [E. coli] as the cause of diseases classified elsewhere]Onset: 30-44-9825QyexzzqlKblwqehw or abnormal glucose tolerance complicating ; childbirth; or the puerperium (18 sources)History of gestational diabetes mellitus; Translations: [Gestational diabetes mellitus]Onset: 05-19-2021 Resolved: 409099-74-7907QxqztessEhahbevjveffv symptoms and ill-defined conditions (4 sources)Dysuria; Translations: [Dysuria]Onset: 81-33-1137YgzkfealEvmqlwpx; including migraine (13 sources)Migraine without mhbh24-30-1096RvlhmlaBrtlxpvi; including migraine (6 sources)Headache; Translations: [Nonintractable headache, unspecified chronicity pattern, unspecified headache type]40-60-3742HbwmuwkjOieznuxhfm during ; abruptio placenta; placenta previa (4 sources)Low lying placenta; Translations: [Low lying placenta NOS or without hemorrhage, unspecified trimester]Onset: 776128-73-4020VulltixpXhwmpsxrytj (15 sources)Hemorrhoids; Translations: [Unspecified hemorrhoids]Onset: 50-13-0040PtamiuizBazjramktmwmj and screening for infectious disease (4 sources)Encounter for screening for human papillomavirus (HPV); Translations: [Contact with and (suspected)exposure to infections with a predominantly sexual mode of transmission]Onset: 672660-30-4225SstlmslkRwplflbchbjv; infection of eye (except that caused by tuberculosis or sexually transmitteddisease) (4 sources)Exgwcfrzu17-57-1901OelvednlEmvfipgyv disorders (15 sources)Dysmenorrhea; Translations: [Dysmenorrhea, unspecified]Onset: 597356-24-6772ZibadftHstcf complications of (5 sources)Endocrine, nutritional and metabolic diseases complicating , unspecified trimester; Translations: [ENDOCRN NUTR MET DZ COMP PG UNS TRI]Onset: 69-60-8045IggzaiebLmzdx complications of (2 sources)Thyroid disease in mother complicating , childbirth AND/OR puerperium; Translations: [Endocrine, nutritional and metabolic diseases complicating , unspecified trimester]54-72-8814QyfoenfuZqsvl complications of (8 sources)Hypothyroidism in ; Translations: [Endocrine, nutritional and metabolic diseases complicating , unspecified trimester]Onset: 992954-21-2300YxrzgcseVfoad complications of (3 sources)History of gynecological disorder; Translations: [Supervision of with other poor reproductive or obstetric history, unspecified trimester]Onset: 451953-71-0416DazfbprjGngsa complications of (2 sources) size does not accord with dates; Translations: [Uterine size- date discrepancy, second trimester]40-27-8820UrxucjbfGoqyo endocrine disorders (4 sources)Ssyqotsmmlwc47-23-8811YqgbgsvTiagr eye disorders (4 sources)Eye -71-2852OydnvxhfErqju female genital disorders (4 sources)Lesion of -20-9472PosywtkgGldcg female genital disorders (1 source)Noninflammatory disorder of vulva; Translations: [Other specified noninflammatory disorders of vulva and perineum]Onset: 06-07-7894RvhqcjftUudjl female genital disorders (2 sources)Vaginal discharge; Translations: [Other specified noninflammatory disorders of vagina]25-26-3859RuettkpsSrthc gastrointestinal disorders (4 sources)Goaeycswzpvs61-15-5250OxnmrokdNrkoc gastrointestinal disorders (1 source)Digestive system finding; Translations: [Other specified symptoms and signs involving the digestivesystem and abdomen]Onset: 00-65-6339AmbqlnkdVwejb gastrointestinal disorders (1 source)Constipation, unspecified; Translations: [Constipation, unspecified] Onset: 90-30-0673FggrtppkRwpnd inflammatory condition of skin (4 sources)Pruritus ani; Translations: [Pruritus ani]Onset: 87-83-7579Dndukysx Other lower respiratory disease (13 sources)H/O: respiratory yjfwcfd10-46-9164QbfjfbdaAaltg nutritional; endocrine; and metabolic disorders (12 sources)Weight musv56-39-1038HlsmdcctLomnz nutritional; endocrine; and metabolic disorders (1 source)Abnormal weight loss; Translations: [Abnormal weight loss]Onset: 51-07-5110ZcsbocjtWeeva and delivery including normal (20 sources)Encounter for supervision of normal first , first trimester; Translations: [Encounter for supervision of normal , unspecified, unspecified trimester]Onset: 48-40-0018LbqftxgyDbofs screening for suspected conditions (not mental disorders or infectious disease) (13 sources)Encounter for screening for malignant neoplasm of cervix; Translations: [Encounter for screening, unspecified]Onset: 12-09-2020 EpisodicResidual codes; unclassified (3 sources)Body mass index 20-24 - normal; Translations: [Body mass index (BMI) 21.0-21.9, adult]Onset: 72-61-8069OedlrfrlXvndzkof codes; unclassified (1 source)Family history of malignant neoplasm of digestive organ; Translations: [Family history of malignantneoplasm of digestive organs]Onset: 11-30-2022 EpisodicResidual codes; unclassified (11 sources)Family history of cancer of ecsdu70-98-5132JrymvvfaCcqhzwfs codes; unclassified (4 sources)Family history of autism; Translations: [Family history of other mental and behavioral disorders]Onset: 369014-74-0835YgikwwasIrlnwjby codes; unclassified (2 sources)Gestation period, 13 weeks; Translations: [13 weeks gestation of ]56-09-3672TjkorzqjDvctwkpf codes; unclassified (15 sources)History of previous intrauterine growth restricted ; Translations: [Personal history of other complications of , childbirth and the puerperium]Onset: 450934-76-8571XvcqnzrcPqmefscn codes; unclassified (2 sources)Gestation period, 17 weeks; Translations: [17 weeks gestation of ]94-08-8032PwofsurlKtqgsfjn codes; unclassified (1 source)Gestation period, 20 weeks; Translations: [20 weeks gestation of ]60-31-3815HwfofwtvKvanqsgn codes; unclassified (7 sources)History of premature rupture of membranes; Translations: [Personal history of other complications of , childbirth and the puerperium]Onset: 851547-79-9424TypyvzeoEyghqzgf codes; unclassified (2 sources)Gestation period, 21 weeks; Translations: [21 weeks gestation of ]40-96-5519FdxbrckaXwbupqlj codes; unclassified (2 sources)Personal history of other complications of , childbirth and the puerperium; Translations: [Personal history of other complications of , childbirth and the puerperium]Onset: 30-30-4474DzqstgadXjeeyrnj codes; unclassified (1 source)20 weeks gestation of ; Translations: [20 weeks gestation of ]Onset: 95-20-8251FzfvfvorPwhlxhru codes; unclassified (2 sources)Gestation period, 25 weeks; Translations: [25 weeks gestation of ]97-29-5582QidhydawEcamthux codes; unclassified (2 sources)Gestation period, 28 weeks; Translations: [28 weeks gestation of ]50-92-2712MdalulihXkghlmfx codes; unclassified (2 sources)Gestation period, 30 weeks; Translations: [30 weeks gestation of ]58-21-6889HsraeqwyYngxwecn codes; unclassified (2 sources)Gestation period, 32 weeks; Translations: [32 weeks gestation of ]67-27-0341YrmqnxwfVrpqfuo disorders (20 sources)Hypothyroidism, unspecified; Translations: [Hypothyroidism]Onset: 02-93-1472SwtusoqGriheyz disorders (12 sources)Disorder of thyroid, unspecified; Translations: [Disorder of thyroid gland]Onset: 84-77-4476DkagzjugBptspuknndmf (13 sources)Body mass index 20-24 - gnomoo03-08-9463Xmhrpprycjde (13 sources)Izc-okvyie45-13uqdtwk36-60-5669Voswlxjzcspk (5 sources)Pain of knee vvoflu70-24-9780Usxcjryhvisr (8 sources)Patient encounter nzispj66-82-9193Favdajjqorbr (3 sources)Rectum pepkqgf59-08-4221Pbrgfljtoldl (8 sources)Finding of sensation of giixgcg96-16-2326Disgrvvmgwtv (1 source)Hx previous FGROnset: 74-67-7319Zvrmbgv tract infections (13 sources)Acute cystitis; Translations: [Acute cystitis without hematuria] Onset: 71-55-1907Bubiisws Past or Other Problems Problem ClassificationProblemDateDocumented DateEpisodic/ChronicEarly or threatened labor (6 sources)Premature uterine contraction; Translations: [False labor before 37 completed weeks of gestation, third trimester]Onset: 04-21-2021 Resolved: 690038-28-4358EbsniyzqRahuv complications of (3 sources)Disorder of ; Translations: [Maternal care for other known or suspected poor growth,unspecified trimester, not applicable or unspecified]Onset: 03-03-2021 Resolved: 088934-95-5816BlensbitTkojy complications of (3 sources)Short cervical length in ; Translations: [Cervical shortening, third trimester]Onset: 05-19-2021 Resolved: 845912-42-8433RgnjsxjkYmxew complications of (2 sources)Endocrine, nutritional and metabolic diseases complicating , second trimester; Translations: [Endocrine, nutritional and metabolic diseases complicating , second trimester]Onset: 27-63-7659EcovepnfRtpbo female genital disorders (4 sources)Other specified noninflammatory disorders of vagina; Translations: [OTH SPEC NONINFLAMMATORY D/O VAGINA]Onset: 03-23-9031QzmnzcpgTvilrmxhbbazlj and other problems of amniotic cavity (3 sources) premature rupture of membranes ; Translations: [ premature rupture of membranes, unspecified as to length of time between rupture and onset of labor, unspecified trimester]Onset: 05-30-2021 Resolved: 473466-93-5488Xuuquqjh Results Test NameValueInterpretationReference RangeFacilityUrinalysis macro (dipstick) panel (U)on 74-02-0653Upedfgwyr, UANegativeNegative - 4(70) +++ mg/dLNOMS HealthcareBlood, UANegativeNegative [...] mg/dLNOMS HealthcareNOMS HealthcareUrinalysis macro (dipstick) panel (U)on 99-61-6903Mijicboti, UA NegativeNegative - 4(70) +++ mg/dLNOMS HealthcareBlood, [...] - 1.03[facility] Urobilinogen, UA0.20.2 - 12 mg/dLNOMT HealthcareNOMS HealthcareUS OB FOLLOW UP TRANSABDOMINAL APPROACHon 01-44-8209XC OB FOLLOW UP TRANSABDOMINAL APPROACH FINDINGS: A [...] Delivery: 03/23/25 Gestational Age as of 12/10/2024: 55z0nJcegnpyjuk macro (dipstick) panel (U)on 41-70-8457Ffcvnsigz, UANegativeNegative - 4(70) +++ mg/dLNOMS HealthcareBlood, UANegativeNegative - 50 Cedric/mcLNOMS HealthcareClarity, UAClearNOMS Healthcare Color, UAYellowNOMS HealthcareGlucose, UANegativeNegative - 2000(110) ++++ mg/dL NOMS HealthcareInterpretation and review of laboratory resultsNormalNOMT HealthcareKetones, UANegativeNegative - 160(16) ++++ mg/dLNOMT Healthcare Leukocytes, UANegativeNegative - 500+++ Ayana/mcLNOMS HealthcareNitrite, UA NegativeNegative - PositiveNOMS HealthcarepH, UA7.05 - 9NOMS HealthcareProtein, UANegativeNegative - 2000(20) ++++ mg/dLNOMT HealthcareSpec Grav, UA1.0101 - 1.03NOMT HealthcareUrobilinogen, UA0.20.2 - 12 mg/dLNOBarnes-Jewish Saint Peters HospitalNOMT HealthcareGLUCOSE TOLERANCE 3 HOURon 83-68-6196LVPSHHO TOLERANCE 3 HOURHighmg/dL NOM HealthcareComment on above:GLU FAST 89 (<95) Col: 12/12/24 0842 GLU 1HR 178 (<180) Col: 12/12/24 0949 GLU 2HR 156H (<155) Col: 12/12/24 1041 GLU 3HR 103 (<140) Col: 12/12/24 1147 Interpretation and review of laboratory resultsAbnormalNOMT HealthcareCLINISYNC NOM HealthcareALL CBC WITH AUTO DIFFon 85-33-5774YTPTZOOLU ABSOLUTE FSLN1RHUTBarnes-Jewish Saint Peters HospitalBasophils/100 WBC (Bld)0.3 %0.2 - 2.0 %NOMS HealthcareEosinophils/100 WBC (Bld)0.5 %Low0.9 - 7.0 %[facility] HospitalErythrocyte distribution width (RBC) [Ratio]12.4 %11.0 - 15.0 %NOMChildren'S Mercy HospitalHematocrit (Bld) [Volume fraction]32.4 %Low36.0 - 48.0 %[facility] HospitalHemoglobin (Bld) [Mass/Vol]10.8 g/dLLow12.0 - 16.0 g/dLNOBarnes-Jewish Saint Peters HospitalIMMATURE GRANULOCYTES ABS AUTO0.03NOBarnes-[facility] Immature granulocytes/100 WBC (Bld)0.3 %0.0 - 0.5 %[facility] HospitalInterpretation and review of laboratory resultsAbnormalChildren's Mercy HospitalLYMPHOCYTES ABSOLUTE AUTO1.3NOBarnes-Jewish Saint Peters HospitalLymphocytes/100 WBC (Bld)14.4 %Low20.5 - 60.0 %[facility] SystemsH (RBC) [Entitic mass]33.2 pg26.7 - 34.0 pgNOBarnes-Jewish Saint Peters HospitalMCHC (RBC) [Mass/Vol]33.3 g/dL29.9 - 35.2 g/dLNOMT HealthcareMCV (RBC) [Entitic vol]99.7 fL High81.0 - 99.0 fLNOMT HealthcareMONOCYTES ABSOLUTE AUTO0.4N[facility]S Healthcare Monocytes/100 WBC (Bld)4.6 %1.7 - 12.0 %NOMS HealthcareNEUTROPHILS ABSOLUTE AUTO 7HighNOMT HealthcareNeutrophils/100 WBC (Bld)79.9 %High43.0 - 75.0 %NOMS HealthcarePlatelet mean volume (Bld) [Entitic vol]10.5 fL9.5 - 13.5 fLNOMT HealthcareTBH EO #0NOMS HealthcareTBH [id number] HealthcareTBH RBC3.25LowNOMS HealthcareTBH WBC8.8NOMT HealthcareCLINISYNCNOMS HealthcareUrinalysis macro (dipstick) panel (U)on 78-84-3297Qqqflnctw, UANegativeNegative - 4(70) +++ mg/dL N[facility] HealthcareBlood, UANegativeNegative - 50 Cedric/mcLNOMS HealthcareClarity, UA ClearNOMS HealthcareColor, UAYellowNOMS HealthcareGlucose, UANegativeNegative - 1999(110) ++++ mg/dLNOMS HealthcareInterpretation and review of laboratory resultsNormalNOMT HealthcareKetones, UANegativeNegative - 160(16) ++++ mg/dLNOMS HealthcareLeukocytes, UANegativeNegative - 500+++ Ayana/mcLNOMS HealthcareNitrite, UANegativeNegative - PositiveNOMS HealthcarepH, UA75 - 9NOMS HealthcareProtein, UANegativeNegative - 2000(20) ++++ mg/dLNOMS HealthcareSpec Grav, UA1.011 - 1.03 NOMS HealthcareUrobilinogen, UA0.20.2 - 12 mg/dLNOMT HealthcareNOMT Healthcare Urinalysis macro (dipstick) panel (U)on 64-39-8380Tztgwacvb, UANegativeNegative - 4(70) +++ mg/dLNOMS HealthcareBlood, UANegativeNegative - 50 Cedric/mcLNOMS HealthcareClarity, UAClearNOMS HealthcareColor, UAYellowNOMS HealthcareGlucose, UAPositiveNegative - 1999(110) ++++ mg/dLNOMT HealthcareInterpretation and review of laboratory resultsAbnormalNOMS HealthcareKetones, UANegativeNegative - 160(16) ++++ mg/dLNOMT HealthcareLeukocytes, UANegativeNegative - 500+++ Ayana/mcL NOM HealthcareNitrite, UANegativeNegative - PositiveNOMS HealthcarepH, UA65 - 9 NOMS HealthcareProtein, UANegativeNegative - 1999(20) ++++ mg/dLNOMT Healthcare Spec Grav, UA1.0151 - 1.03NOMT HealthcareUrobilinogen, UA1.00.2 - 12 mg/dLNOMT HealthcareNOMT HealthcareALL THYROID STIM HORMONEon 83-91-8034GRM Qn2.68 m[IU]/L [facility] HospitalCLINISYNCNOMS HealthcareAFP, SERUM, OPEN SPINA BIFIDAon 71-21-8434FIC MOM0.82.[facility] HospitalAFP VALUE34.7 ng/mL.[facility] HealthcareCOMMENT: Comment.[facility] HospitalComment on above:Alie Moon, Ph.D., [facility] Director References: Available Upon Request. Multiples Of Median Cutoffs For AFP Elevations Murphy 2.5 Black 2.8 IDD 2.0 Twins 4.5 Abbreviation Definitions IDD - Insulin Dep Diabetes OSBR - Open Spina Bifida Risk For further inquiries contact [facility] at [phone]. This test was developed and its performance characteristics determined by [facility]. It has not been cleared or approved by the Food and Drug Administration. Performed at: [facility] [address], [place] [id number] Editorial Specialist: Pily Meraz [facility], Phone: [phone] GEST. AGE ON COLLECTION DATE17.3. weeksNOMT HealthcareGESTAT. AGE BASED ONLMP. [facility] HealthcareComment on above:Recalculations are not recommended when gestational dating by LMP and ultrasound are within 10 days. INSULIN DEP DIABETESNo.[facility] HealthcareINTERPRETATIONComment.[facility] Comment on above:Interpretation: Screen Negative This [...] Customer Services to discuss available options. The [place] [employer] recommends amniocentesis be offered to women age 35 and older. MATERNAL AGE AT EDD27.1. yrNOMT HealthcareMULTIPLE GESTATIONNo.[facility] Healthcare OSBR RISK 1 [id number].[facility] HealthcareRACECaucasian.[facility] HealthcareRESULTSReport. [facility] HealthcareTEST RESULTS:Negative.[facility] Mercy HospitalIgtahrculyTBNKEO436. lbsNOMT HealthcarePREGNANCY N N LMP [id number] 2 17 N 1 Y 134 N N N N N White/ CLINISYNCNOBarnes-Jewish Saint Peters HospitalUrinalysis macro (dipstick) panel (U)on 10-15-2024 Bilirubin, UANegativeNegative - 4(70) +++ mg/dLNOMT HealthcareBlood, UANegative Negative - 50 Cedric/mcLNOMT HealthcareClarity, UAClearNOMT HealthcareColor, UA YellowNOMS HealthcareGlucose, UANegativeNegative - 2000(110) ++++ mg/dLLOG[facility] HealthcareInterpretation and review of laboratory resultsNormalChildren's [facility]cy Hospital Ketones, UANegativeNegative - 160(16) ++++ mg/dLLOG[facility] HealthcareLeukocytes, UA NegativeNegative - 500+++ Ayana/mcLNOMT HealthcareNitrite, UANegativeNegative - PositiveNOMT HealthcarepH, UA65 - 9NOMT HealthcareProtein, UANegativeNegative - 2000(20) ++++ mg/dLNOMT HealthcareSpec Grav, UA1.0151 - 1.03N[facility]T Healthcare Urobilinogen, UA0.20.2 - 12 mg/dLSSM Health Cardinal Glennon [facility] HealthcareGLUCOSE 1 HOURon 11-90-3137Ehrhrca [Mass/Vol]108 mg/dLNINF - 130 mg/dLLOGAN REG[facility] HealthcareCLINISYNC [facility] HospitalALL MISCELLANEOUS TESTon 39-29-8711NLYBAWHXLHGKK TESTCOMMENT.[facility] HealthcareComment on above:Test Ordered: [id number] Parvovirus B19, Human, IgG/IgM Parvovirus B19, IgG 0.1 index BN Reference Range: 0.0-0.8 Negative <0.9 Equivocal 0.9 - 1.1 Positive >1.1 Parvovirus B19, IgM 0.1 index Reference Range: 0.0-0.8 Negative <0.9 Equivocal 0.9 - 1.1 Positive >1.1 Performed at: [address] [id number] Editorial Specialist: Darion Moon MD, Phone: [phone] Performed at: [address] [id number] Editorial Specialist: Madi Maloney PhD, Phone: [phone] Parvovirus B19 (Human), IgG, IgM CLINISYNCNOMS HealthcareALL MISCELLANEOUS TESTon 19-15-6226CLGBPONCPNSKD TEST COMMENT.NOMS HealthcareComment on above:Test Ordered: [id number] Parvovirus B19, Human, IgG/IgM Parvovirus B19, IgG 0.1 index Reference Range: 0.0-0.8 Negative <0.9 Equivocal 0.9 - 1.1 Positive >1.1 Parvovirus B19, IgM 0.1 index Reference Range: 0.0-0.8 Negative <0.9 Equivocal 0.9 - 1.1 Positive >1.1 Performed at: [address] [id number] Editorial Specialist: Darion Moon MD, Phone: [phone] Performed at: [address] [id number] Editorial Specialist: Madi Maloney PhD, Phone: [phone] Parvovirus B19 (Human), IgG, IgM CLINISYNCNOMS HealthcareALL CBC WITH AUTO DIFFon 87-18-1532ZAINECSMK ABSOLUTE RWDU1WFYR HealthcareBasophils/100 WBC (Bld)0.5 %0.2 - 2.0 %[facility] Eosinophils/100 WBC (Bld)0.5 %Low0.9 - 7.0 %NOMS HealthcareErythrocyte distribution width (RBC) [Ratio]12.3 %11.0 - 15.0 %NOMS HealthcareHematocrit (Bld) [Volume fraction]38.5 %36.0 - 48.0 %NOMS HealthcareIMMATURE GRANULOCYTES ABS AUTO0.02NOMT HealthcareImmature granulocytes/100 WBC (Bld)0.3 %0.0 - 0.5 % [facility] HospitalInterpretation and review of laboratory resultsAbnormalNOMT HealthcareLYMPHOCYTES ABSOLUTE AUTO1.6NOMS HealthcareLymphocytes/100 WBC (Bld)21 %20.5 - 60.0 %[facility] Health SystemsH (RBC) [Entitic mass]33.5 pg26.7 - 34.0 pgPemiscot Memorial Health SystemsHC (RBC) [Mass/Vol]35.6 g/yUKyos38.9 - 35.2 g/dLPemiscot Memorial Health SystemsV (RBC) [Entitic vol]94.1 fL81.0 - 99.0 fLChildren's Mercy HospitalMONOCYTES ABSOLUTE AUTO 0.4NOMS HealthcareMonocytes/100 WBC (Bld)5.1 %1.7 - 12.0 %[facility] NEUTROPHILS ABSOLUTE AUTO5.6NOBarnes-Jewish Saint Peters HospitalNeutrophils/100 WBC (Bld)72.6 %43.0 - 75.0 %[facility] HospitalPlatelet mean volume (Bld) [Entitic vol]11.1 fL9.5 - 13.5 fLChildren's Mercy HospitalTBH EO #0NOBarnes-Jewish Saint Peters HospitalTBH YLM051VPYSTenet St. Louis RBC4.09Low [facility] WBC7.8[facility] HospitalCLINISYNCCBC and differentialon 88-26-3178Iolpztymbk (Bld) [Volume fraction]39 %36 - 46 %[facility] Platelets (Bld) [#/Vol]211 10*3/uL150 - 399 10*3/uLProMedica Health SystemWBC (Bld) [#/Vol]7.8 10*3/mL3.3 - 10.0 10*3/mLUniversity Of Vermont Medical CenterMedica Magruder Hospital SystemDrug Screen, Urineon 95-50-3386Ioujzyzlusq/MethamphetamineNegativeProMedica Health System BarbituratesNegativeProMedica Health SystemBenzodiazepinesNegativeProMedica Health SystemCocaine MetaboliteNegativeUniversity Of Vermont Medical CenterMedica Health SystemMethadoneNegative ProMedica Health SystemOpiatesNegativeUniversity Of Vermont Medical CenterMedica Health SystemOxycodoneNegative Pro[facility] Health SystemPhencyclidineNegativeProMedica Health SystemThc Marijuana, UrineNegativeMarymount HospitalHBV surface Ag IA Qlon 08-21-2024 Hepatitis B Surface AntigenNegativeMarymount HospitalHCV Ab IA Qlon 07-64-5902QSZ Ab Ql (S)Non-ReactiveMarymount HospitalHIV 1+2 Ab+HIV1 p24 Ag IA Qlon 58-14-8073TCW 1&2 AB/AGNon-ReactiveMarymount HospitalHemoglobin A1con 12-42-6091CjQ7l (Bld) [Mass fraction]5.6 %4.0 - 6.0 %Marymount HospitalLaboratory - Hematology and Cell countson 54-83-6776Fsyihjxmvy (Bld) [Mass/Vol]13.7 g/dL12.0 - 16.0 g/dLChildren's Mercy HospitalNo Panel Informationon 81-55-0608LBHM HealthcareRubella IGG immune statuson 90-57-7726Ncquwrf immune IgGimmuneMarymount HospitalT. pallidum IgG+IgM IA Ql (S)Ordered By: Nadira Salazar on 98-84-0288BajuzqypIzz-ReactiveMarymount HospitalTSHon 24-41-4905Ovjcvxg Stimulating (3Rd Generation) Hormone/ Tsh7.721PGreen Cross HospitalType and screenon 32-05-4855Xvh/Rh(D)PositiveMarymount HospitalHCG ( test) Ql (U)on 73-03-7094Lelwbofjggzenn and review of laboratory resultsAbnormalChildren's Mercy HospitalPreg Test, UrPositiveNegativeSSM Health Cardinal Glennon Children's Hospital HealthcareUS OB TRANSVAGINALon 32-57-1718TX OB TRANSVAGINALEXAM: US OB TRANSVAGINAL HISTORY: Dating. [...] II, MD, PHD at 20-Aug-2024 10:22:40 AM [facility] TeleradiologyNormalNot AvailableComment on above:Order Comment: US OB TRANSVAGINAL No LMP recorded.Urinalysis macro (dipstick) panel (U)on 40-42-5168Buuqqkkmv, UA NegativeNegative - 4(70) +++ mg/dLNOMS HealthcareBlood, [...] - 12 mg/dLNOMS HealthcareNOMS HealthcareAmbulatory Visit Summaryon 68-85-1439Ezsdrkvipw Visit SummaryAmbulatory Visit Summary YANA CHURCH :2000 [...] 8:40 AM EDT With: Marta Rivas Where: [facility] [address] [place] [address], [address] [place] [id number] Medications What How Much When Why Instructions [...] you for choosing us for your care. [facility] Medicine Office/Clinic Noteon 60-05-3833Angtmf Medicine Office/Clinic NoteFabrigham and women's [facility] Medicine Office/Clinic Note Chief Complaint Establish [...] anymore, managed with tylenol Social History: Occupation: [employer] Family life: home with and daughter Diet: no restrictions Caffeine: 1 cup coffee/day Exercise: active lifestyle Alcohol use: denies Drug use: denies Smoking status: denies Health Maintenance: Routine labs: thyroid labs 06/2024, declines further labs Pap (21-64yo): 04/2023 Specialists: Electrical Sign Servicer: krysta Dentist: krysta OBGYN: Joanna Review of [...] other medications. Recheck TSH/T (more content not included)...[facility] Comment on above:Result Comment: Electronically Signed By: Marta Rivas\.br\Date and Time Signed: 07/09/24 08:35 EDTAmbulatory Visit Summaryon 64-15-5599Cebvrntfkj Visit SummaryAmbulatory Visit Summary YANA CHURCH :2000 [...] 8:00 AM EDT With: Marta Rivas Where: [facility] [address] [facility], [facility] [place] [address]- Medications What How Much When Why Instructions New amoxicillin-clavulanate (Augmentin 875 mg-125 mg Tab) 1 Tablets By Mouth Every 12 hours Acute sinusitis Duration: 10 Days Pickup at [facility] Unchanged levothyroxine (Synthroid 100 mcg Tab) 1 Tablets By Mouth Every day Pharmacy Information [facility]: [address] [place], [place] [phone] Allergies No Known Allergies Problems Ongoing - [...] you for choosing us for your care. [facility] Medicine Office/Clinic Noteon 04-75-8582Izzbjd Medicine Office/Clinic NoteFabrigham and women's [facility] Medicine Office/Clinic Note Chief Complaint possible [...] for 10 day(s), 20 tab(s), Refill(s) 0, [facility], 166, cm, 07/05/24 15:34:00 EDT, Height/Length [...] When Contact Information Julienne BARTLETT, Ham Montano, [facility], [address], [address] [phone] Additional Instructions: as scheduled with Marta Patient Education Sinus Infection, Adult, Cypz-gl-Kwwl How to Perform a Sinus Rinse, Rgqp-ul-Sbke Problem List/Past Medical History Ongoing Acute sinusitis [...] poliovirus vaccine, inactivated (more content not included)...Normal [facility] SystemComment on above:Result Comment: Electronically Signed By: Julienne BARTLETT, Ham Montano\.br\Date and Time Signed: 07/05/24 16:06 EDT CHEMISTRYOrdered By: SYSTEM SYSTEM on 57-24-4709Pxmn T4 [Mass/Vol]0.82 ng/dL Normal0.58 - 1.64 ng/dLRemisol ChemTSH Qn3.09 m[IU]/LNormal0.34 - 5.60 mcIU/mL Remisol ChemFree T4on 62-35-3941Pehc T4 [Mass/Vol]0.82 ng/dLNormal0.58-1.64 [facility] SystemComment on above:Performed By: #### [id number] #### [facility] [address] [place], [place] [address]KMJkp 31-44-5191GBV Qn3.09 m[IU]/LNormal0.34-5.60[facility] SystemComment on above:Performed By: #### [id number] #### [facility] [address] [place], [place] [address]UVG EXTRACTION AND HOLDon 69-53-4943TwldzvOenbod Puregene Reagents from QiagenInvalid Interpretation [facility] on above:Order Comment: Release to patient->AutomaticNucleic Acid Concentration 273.2 ng/uLInvalid Interpretation [facility] on above: Order Comment: Release to patient->AutomaticNucleic Acid Purity1.90Invalid Interpretation Code1.70-2.10[place] [facility] on above:Order Comment: Release to patient->AutomaticSignature .Invalid Interpretation [facility] on above:Order Comment: Release to patient->AutomaticStorage and Special InstructionsInvalid Interpretation [facility] on above:Order Comment: Release to patient->AutomaticResult Comment: The extracted DNA is stored in the [facility] at -70 degrees C and is being held for future testing. If there are any questions regarding this sample, please contact the [facility] at [phone].Total DNA Yield82.0 ugInvalid Interpretation [facility] on above:Order Comment: Release to patient->AutomaticTotal Volume FXA054 ulInvalid Interpretation Code [facility] on above:Order Comment: Release to patient->AutomaticIGP,APTIMA HPV,AGE GDLNon 09-45-0343TUR GDLN ACOG TESTINGNote. NOMS HealthcareComment on above:TESTS RESULT FLAG UNITS REF RANGE LAB Clinician Provided Cytology Information Source.............Cervix;Endocervix No. of containers..01 ThinPrep Vial Age Maicolo ACOG Francheska... FLAG LEGEND: L-Low Normal,H-High Normal,LL-Alert Low,HH-Alert High <-Panic Low,>-Panic High,A-Abnormal,AA-Critical Abnormal Performed at: 01 = [address] [place] [address] Sugey Torres MD, IGP, RFX APTIMA HPV ASCUNote.[facility] HealthcareComment on above:TESTS RESULT FLAG UNITS REF RANGE LAB DIAGNOSIS: 02 NEGATIVE FOR INTRAEPITHELIAL LESION OR MALIGNANCY. Specimen adequacy: 02 Satisfactory for evaluation. Endocervical and/or squamous metaplastic cells (endocervical component) are present. Performed by: 02 Yudy Rhoades, Engineering Operator ([facility]) . 02 Note: Note 02 The Pap [...] <-Panic Low,>-Panic High,A-Abnormal,AA-Critical Abnormal Performed at: [address] [address] Sugey Torres MD, Performed at: = - [facility] [address] [id number] Editorial Specialist: Sugey Torres MD, Phone: [phone] Performed at: - [facility] [id number] Editorial Specialist: Sugey Torres MD, Phone: [phone] BRUSH-SPATULA CERVIX ENDOCERVIX CLINISYNCNOMS HealthcareCoding Summary.on 50-09-9564Jtrazq Summary. PAVASaji10GEq2sBi+PGhlYWQ+NH7LJDApX50ruBQyzQ4sO2ZXEOnSEsgyMZNBSNoWNxLzikPgRP9zyK NjZXJu [file] [id number] (more content not included)...NormalOhio State Health System CHEMISTRYOrdered By: SYSTEM SYSTEM on 81-93-5066Rykn T4 [Mass/Vol]0.92 ng/dL Normal0.58 - 1.64 ng/dLRemisol [facility] Qn3.37 m[IU]/LNormal0.34 - 5.60 mcIU/mL Remisol ChemConsent for Treatmenton 84-65-0531Isjflad for Treatment [id number]#1.00TIFFNormalOhio State Health SystemFree T4on 14-99-8103Qycd T4 [Mass/Vol]0.92 ng/dLNormal0.58-1.64[facility] Health SystemComment on above:Performed By: #### [id number] #### Barry [facility] Laboratory [address] [place] [address]WHZqi 55-23-2648HEL Qn3.37 m[IU]/LNormal0.34-5.60[facility] Health SystemComment on above:Performed By: #### [id number] #### Jhonny [facility] Laboratory [address] [place], [place] [address]Xsxyrwfvex Visit Summaryon 29-11-0031Vzilptbtvn Visit Summary YANA CHURCH :2000 Visit Date:08/08/2023 [...] you for choosing us for your care. [facility] Medicine Office/Clinic Noteon 79-57-6701Xhzbbq Medicine Office/Clinic NoteChief Complaint f/u for hypothyroid [...] Unspecified hemorrhoids) Resolved, no additional complaints. [facility] for screening colonoscopy/diagnostic colonoscopy due [...] with voice recognition artificial intelligence software, specifically [employer], [employer] and or [employer]. Substitutions may have occurred due to the [...] Social History Alcohol Curren (more content not included)...[facility] HospitalComment on above:Result Comment: Electronically Signed By: [...] Follow these instructions at home: ? Take ymlo-kaw-haxprin and prescription medicines only as told by [...] provider. Document Revised: 03/09/2022 Document Reviewed: 03/09/2022 Specific Media Patient Education ? 2022 [employer]. Gastroenterology Hemorrhoids Hemorrhoids are swollen veins in and around the rectum or anus. There are two types of hemorrhoids: ? Internal hemorrhoids. These occur in the veins that are just inside the rectum. They may poke through to the outside and become irritated and painful. ? External hemorrhoids. These occur in the veins that are (more content not included)...NormalOhio State Health SystemPAP 086051kq 05-20-2023. trachomatis rRNA FRANSISCO+probe Ql (Cvx)NegativeInvalid Interpretation CodeNegative [facility] SystemComment on above:Performed By: #### [id number] ####[facility] Vvjzuxfhcr824 [facility] Antonioradhanewyork-pres[facility] lower [facility] hospitalamerico [id number] Cytology report Cyto stain Doc (Cvx/Vag)NoteInvalid Interpretation [facility] HospitalComment on above:Result Comment: TESTS RESULT FLAG UNITS REF RANGE LAB Clinician Provided Cytology Information Source.............Cervix No. of containers..01 ThinPrep Vial DIAGNOSIS: 01 NEGATIVE FOR INTRAEPITHELIAL LESION OR MALIGNANCY. Specimen adequacy: 01 Satisfactory for evaluation. Endocervical and/or squamous metaplastic cells (endocervical component) are present. Performed by: 01 Erum Mckenzie, Engineering Operator ([facility] [place]) . 01 Note: Note 01 The Pap [...] <-Panic Low,>-Panic High,A-Abnormal,AA-Critical Abnormal Performed at: [address] [address] Sugey Torres MD, Yekwbcbog By: #### [id number] ###Tunde [facility] [address]hembs[address], [id number] 16+18+31+33+35+39+45+51+52+56+58+59+66+68 DNA Probe+sig amp Ql (Cvx)Negative Invalid Interpretation CodeNegativeFisher [facility] Orthopaedic InstituteComment on above: Result Comment: This nucleic acid amplification test detects fourteen high-risk HPV types (16,18,31,33,35,39,45,51,52,56,58,59,66,68) without differentiation.Performed By: #### [id number] ####Barry [facility] Bknorsnc[address]846 [facility], [id number]. gonorrhoeae rRNA FRANSISCO+probe Ql (Cvx) NegativeInvalid Interpretation CodeNegMagruder HospitalComment on above:Performed By: #### [id number] ####Barry [facility] Msrtyegvul650 [facility] [id number]. vaginalis rRNA FRANSISCO+probe Ql (Unsp spec)NegativeInvalid Interpretation CodeNegativeOhio State Health System Comment on above:Result Comment: Performed at: [facility] [address] [place], [place] [id number] MD Brian Mayes Performed at: =G [facility] [address] [place], [place] [id number] MD Brian MayesPerformed By: #### [id number] ####[facility] [address] [place] [address] [id number] Medicine Office/Clinic Noteon 18-29-4382Zlxjgr Medicine Office/Clinic NoteChief Complaint Pap, f/u UTI [...] exam was performed without the assistance of curator medical museum as witness Pelvic Exam: Vulva: normal appearance, [...] up every 3-5 years based on results SCHOOL LABORATORY TECHNICIAN referral if needed for further testing [...] placed F/u 6 months (more content not included)...NormalOhio State Health System Comment on above:Result Comment: Electronically Signed By: Ya Wang\.irvin\Date and Time Signed: 05/16/23 15:38 ESTPAP [id number] 05-16-2023 Gynecological Body SiteCERVIXNormalOhio State Health SystemComment on above: Performed By: #### [id number] ####Jhonny [facility] [address] [id number] Educationon 77-24-2344Crymfyv Education Obstetrics and Gynecology Pap Test Why [...] including vitamins, herbs, eye drops, creams, and wtxb-zll-yxtquqf medicines. ? Any bleeding problems you have. [...] provider. Document Revised: 06/05/2021 Document Reviewed: 06/05/2021 Specific Media Patient Education ? 2022 Innov[employer]. Oncology Cancer Screening for Women A cancer [...] to asbestos. How i (more content not included)...NormalOhio State Health SystemConsent for Treatmenton 30-24-6430Fadfbxy for Treatment [id number]#1.00TIFFNormalOhio State Health SystemUA With Cult Reflexon 06-23-2015Aqbxpcruy Ql (U)NegativeNormalNegative [facility] SystemComment on above:Performed By: #### [id number] ####[facility] [address] [place] [address] Clarity (U)CLEARNormalClearOhio State Health SystemComment on above:Performed By: #### [id number] ####[place] [address] [place], [place] [address]Yhics (U)YELLOWNormalYellowOhio State Health System Comment on above:Performed By: #### [id number] ####[facility] [address]elfsk[address] [place], [place] [address]Dtioqtwkjc cells.squamous LM.HPF (Urine sed) [#/Area]7-3Delzta1-6Jldzlx [facility] Orthopaedic InstituteComment on above: Performed By: #### [id number] ####[facility] [address] [place], [place] [address]Yjtunjv Test strip (U) [Mass/Vol]NegativeNormal NegativeOhio State Health SystemComment on above:Performed By: #### [id number] ####[facility] [address]axktmfrol[address] [place] [address] Hemoglobin Ql (U)NegativeNormalNegativeOhio State Health SystemComment on above:Performed By: #### [id number] ####[facility] Vpwvagggsq[address] [place], [place] [address]Zjwdyjo (U) [Mass/Vol]NegativeNormalNegMagruder HospitalComment on above:Performed By: #### [id number] ####[address] [address] [place].plasma/[place].RBC (Bld) [Mass ratio]8-0Xgzdzj3-6Kiwwse [facility] Orthopaedic InstituteComment on above:Performed By: #### [id number] ####[address] [address]Xdwjekr Ql (U)NegativeNormal NegativeOhio State Health SystemComment on above:Performed By: #### [id number] ####[address] [address]tA (U)6.0 [pH]Invalid Interpretation Code5.0-9.0Ohio State Health SystemComment on above:Performed By: #### [id number] ####[address] [address]Bhsucrh (U) [Mass/Vol]NegativeNormal NegativeOhio State Health SystemComment on above:Performed By: #### [id number] ####[address] [address] Specific gravity (U) [Rel density]>=1.030Invalid Interpretation Code1.005-1.030 [facility] SystemComment on above:Performed By: #### [id number] ####[address] [address]Gtnr of Urine collection methodClean CatchNormalOhio State Health SystemComment on above:Performed By: #### [id number] ####[address] [address]Hxropdosidhz Qn (U)0.2 {Mehdi'U}/dLNormal0.0-1.0 [facility] SystemComment on above:Performed By: #### [id number] ####[address] [address]SMQ Auto Ql (U)NegativeNormalNegativeOhio State Health SystemComment on above: Performed By: #### [id number] ####[address] [place], [place] [address]RUG LM.HPF (Urine sed) [#/Area]9-6Mvtjxa7-9Pkjctf [facility] Orthopaedic InstituteComment on above:Performed By: #### [id number] ####Jhonny [facility] [address]zaz[address] [place], [place] [address]KHQPXLYBZP Ordered By: Alphonso Wang on 32-31-5991Kydlgjutd Ql (U)Negative (03/24/23 11:15 AM)NormalNegativeMEM[facility] UA Auto SSClarity (U)Clear (03/24/23 11:15 AM)NormalClearFPAWHUSKA HOSPITAL – PAWHUSKA UA Auto SSColor (U)Yellow (03/24/23 11:15 AM)NormalYellowMEMORIAL HOSPITAL [facility] UA Auto SSEpithelial cells.squamous LM.HPF (Urine sed) [#/Area]0-2 /HPFNormal0-2/HPFMEMORIAL HOSP[facility] UA Auto SSGlucose Test strip (U) [Mass/Vol]Negative (03/24/23 11:15 AM)NormalNegativeMEMORIAL HOS[facility] UA Auto SSHemoglobin Ql (U)Negative (03/24/23 11:15 AM)NormalNegativeMEMORIAL [facility] UA Auto SSKetones (U) [Mass/Vol]Negative (03/24/23 11:15 AM)NormalNegativeMEMORIAL HOS[facility] UA Auto SSLithium.plasma/[place].RBC (Bld) [Mass ratio]0-3 /HPFNormal0-3/HPFMEMORIAL HOSPITAL [facility] UA Auto SSNitrite Ql (U)Negative (03/24/23 11:15 AM)NormalNegativeMEMORIAL HOS[facility] UA Auto SSpH (U)6.0 *NA* (03/24/23 11:15 AM)Invalid Interpretation Code5.0 - 9.0[facility] UA Auto SSProtein (U) [Mass/Vol]Negative (03/24/23 11:15 AM)NormalNegativeMEMORIAL HOS[facility] UA Auto SSSpecific gravity (U) [Rel density] >=1.030 *NA* (03/24/23 11:15 AM)Invalid Interpretation Code1.005 - 1.030[facility] UA Auto SSUA Spec DescClean Catch (03/24/23 11:15 AM)NormalMEMORIAL HOSPITAL OF [facility] UA Auto SSUrobilinogen Qn (U)0.5342575 {Mehdi'U}/dLNormal0.0 - 1.0 EU/dLMEMORIAL HOSPITAL OF [facility] UA Auto SSWBC Auto Ql (U)Negative (03/24/23 11:15 AM)NormalNegativeMEMORIAL HOS[facility] UA Auto SSWBC LM.HPF (Urine sed) [#/Area]0-5 /HPFNormal0-5/HPFMEMORIAL HOSP[facility] UA Auto SST3 Freeon 90-57-9237Ajrm T3 [Mass/Vol]2.9 pg/mL Invalid Interpretation Code2.0-4.4Fisher [facility] Orthopaedic InstituteComment on above: Result Comment: Performed at: [facility] [address] [id number] PhD Haider BarrazaPerformed By: #### [id number], [id number] ####[facility]ry [facility] [facility] [address] [place], [place] [address]AX Retroperitoneal Completeon 16-06-7722EI Retroperitoneal CompleteExam Date/Time: 03/22/2023 09:49 EST Reason [...] Taylor MD Transcribed by: RAZIA Technologist: Hussain [facility] Orthopaedic InstituteCHEMISTRY Ordered By: SYSTEM SYSTEM on 01-92-4777Pjyj T4 [Mass/Vol]1.10 ng/dLNormal0.58 - 1.64 ng/dLRemisol ChemTSH Qn0.90 m[IU]/LNormal0.34 - 5.60 mcIU/mLRemisol Chem Consent for Treatmenton 00-36-0525Xumsata for Treatment [id number]#1.00TIFFGeorgetown Behavioral HospitalFree T4on 98-06-0874Zifz T4 [Mass/Vol]1.10 ng/dLNormal0.58-1.64Ohio State Health SystemComment on above:Performed By: #### [id number], 3087523, 1633016 ####[facility] [address] [place], [place] [address]SRIee 03-73-7340PCW Qn0.90 m[IU]/LNormal0.34-5.60[facility] State Health SystemComment on above:Performed By: #### 5274437, 9614344, 9180318 ####[facility] [address] [place] [address]P Urineon 36-77-1641Bluevnip identified Cx Nom (U)Microbiology PROCEDURE: Urine Culture [...] Locations R1: This test was performed at: [facility], [address] [place] [address], [id number] [place] [address], TyrmzoAvdbtxGeorgetown Behavioral HospitalComment on above:Performed By: #### [id number] ####[facility]ry [facility] [address]cp[address] Ashtonnewy[facility] hospitalamericoT[place], [place] [address]Hogzmq Medicine Office/Clinic Noteon 24-17-0930Etzebb Medicine Office/Clinic NoteChief Complaint 2 wk f/u [...] due to her gallbladder. She saw a cage loader in 11/2022. She is able to schedule [...] office today shows: Negat (more content not included)...[facility] Behavioral HospitalComment on above:Result Comment: Electronically Signed By: Ya Wang\.br\Date and Time Signed: 03/11/23 06:06 EST\.br\Electronically Co-Signed By: Annetta Blackburn\.br\Date and Time Co-Signed: 03/09/23 12:22 ESTAmbulatory Visit Summaryon 80-02-2926Hxqxymjklb Visit Summary YANA CHURCH :2000 Visit Date:03/09/2023 Ambulatory Visit Instructions Your Diagnosis BMI 21.0-21.9, adult Feeling of incomplete bladder emptying Other cystitis with hematuria Hypothyroidism Tests Performed Urnls Dip Stick Auto w/o Microscopy POC 91542 Your Care Team Attending Physician - Ya [...] 10:00 AM EDT With: Ya Wang Where: [facility] Primary CareNormalRecurrent UTI (urinary tract infection), pp_set_radiology_subspecialty, [facility]\.br\ Medicati ons\.br\ What How Much When Why Instructions\.br\ New cephalexin (Keflex 500 mg Cap) 1 Capsules By Mouth 4 times a day Feeling of incomplete bladder emptying Recurrent UTI (urinary tract infection) Duration: 7 Days Pickup at [facility]\.br\ New phenazopyridine (Pyridium 200 mg Tab) 1 Tablets By Mouth 3 times a day Feeling of incomplete bladder emptying Recurrent UTI (urinary tract infection) Duration: 3 Days Pickup at [facility]\.br\ Unchanged levothyroxine (Synthroid 112 mcg Tab) [...] instructions Prior to colonoscopy. \.br\ Pharmacy Information\.br\ [facility]: [address], [place] [address] [phone]\.br\ Test Results\.br\ Urnls Dip Stick Auto w/o Microscopy POC 34578 (03/09/2023)\.br\ Bilirubin Urine Dipstick - Negative\.br\ Blood Urine Dipstick - Trace-intact\.br\ Glucose Urine Dipstick - Negative\.br\ Ketones UrineDipstick - Negative\.br\ Leukocytes Urine Dipstick - Trace\.br\ Nitrite Urine Dipstick - Negative\.br\ Protein Urine Dipstick - Negative\.br\ Specific [place] Urine Dipstick - 1.020\.br\ Urine Appearance Urine [...] including vitamins, herbs, eye drops, creams, and yvvz-ztk-orwjpau medicines.\.br\ ? \.br\ Whether you are or [...] nerves are communicating with your muscles.\.br\ What [facility] Health SystemPatient Educationon 99-39-7277Ruwemfr Education Endocrinology Hypothyroidism Hypothyroidism is when the [...] Follow these instructions at home: ? Take lnwp-jhw-ekztwhg and prescription medicines only as told by [...] provider. Document Revised: 03/09/2022 Document Reviewed: 03/09/2022 Specific Media Patient Education ? 2022 Innov[employer]. Obstetrics and Gynecology Urinary Tract Infection, Adult A urinary tract infection (UTI) is an infection of any part of the urinary tract. The urinary tractincludes the kidneys, ureters, bladder, and urethra. These organs make, store, and get rid of urinein the body. An upper UTI affects the ureters and kidneys. A lower UTI affects the bl (more content not included)...[facility] Behavioral HospitalPhysician Referralon 54-01-3581Owdezfjpq [id number]#1.00TIFF [facility] Behavioral HospitalProvider Letteron 27-91-3581Bmqnytvj Letter March 02, 2023 YANA CHURCH [address] [place] [id number] : [address] Clay Waters is know on your insurance & we are able to schedule your EGD & Colonoscopy. Please call us at [phone] at [facility] convenience to schedule your procedure. Thank you for your prompt attention to this matter. Sincerely, [facility]ive [facility] 03-02-2023 Reminders From: Erum Gold To: [facility] - Reminders/Recalls; Sent: 11/30/2022 12:34:03 EDT Show up: 11/30/2022 12:34:00 EDT Subject: Ambulatory Reminder [employer] Reminder/Recall Call pt and scheduled EGD and Colonoscopy with Dr. Williamson once [employer] is approved. From: Rusty Alfred ([facility] - Reminders/Recalls) To: Yue Perez; Sent: 12/28/2022 [...] letter to patient to call office to [facility] Urineon 57-01-2234Qlcmsrcr identified Cx Nom (U)Microbiology PROCEDURE: Urine Culture [...] Locations R1: This test was performed at: [facility], [address] [place] [address], [facility] , , FikabiPvxrwtGeorgetown Behavioral HospitalComment on above:Performed By: #### [id number] ####[facility] [address] [place] [address] Medicine Office/Clinic Noteon 70-70-3071Ansuev Medicine Office/Clinic NoteChief Complaint UTI symptoms HPI [...] color was orange in appearance due to egxj-xdt-kymimwn meds she was taking, normal urobilinogenpH 5.5 [...] day(s), # 10 cap(s), Refills(s) 0, Pharmacy: [facility], 166, cm, 02/21/23 13:06:00 EST, Height/Length Dosing, 58.6, kg, 02/21/23 13:06:00 EST, Weight Dosing phenazopyridine, 200 mg = 1 tab(s), Oral, TID, X 3 day(s), # 9 tab(s), Refills(s) 0, Pharmacy: [facility], 166, cm, 02/21/23 13:06:00 EST, Height/Length Dosing, 58.6, kg, 02/21/23 13:06:00 EST, Weight Dosing Urine Culture Urnls Dip Stick Auto w/o Microscopy POC 55273 2. Acute cystitis (N30.00: Acute cystitis without hematuria) #1 3. Constipation in female (K59.00: Constipation, unspecified) improving. occasional Colace OTC and Miralax 4. Hemorrhoids (K64.9: Unspecified hemorrhoids) improving, stable 5. Hypothyroidism (E03.9: Hypothyroidism, unspecified) Chronic Stable with 112 mcg daily of Synthroid _ control Weight is stable Asymptomatic- noteable tachycardia today Du (more content not included)...[facility] Behavioral HospitalComment on above:Result Comment: Electronically Signed By: [...] these instructions at home: Medicines ? Take hufr-pen-bbezghv and prescription medicines only as told by [...] provider. Document Revised: 10/17/2020 Document Reviewed: 10/17/2020 Specific Media Patient Education ? 2022 [employer].[facility] Ambulatory Visit Summaryon 78-99-4118Bhedtlpsuf Visit Summary LILIANAYANA MONTENEGRO :2000 Visit Date:11/30/2022 [...] 1:00 PM EST With: Ya Wang [facility] Gastroenterology Office/Clinic Noteon 74-76-5404Mrbxvgjtziklfohf Office/Clinic NoteChief Complaint constipation HPI Staff Patient [...] Refill(s) 0, Prior to colonoscopy., [id number], 166, cm, 11/30/22 12:12:00 EDT, Height/Length Dosing, [...] rhinitis Hypoglycemia Hypothyroidism Left (more content not included)...[facility] Behavior[facility] HospitalComment on above:Result Comment: Electronically Signed By: Daniel Gray CNP\.br\Date and Time Signed: 11/30/22 12:32 EDTPatient Educationon 11-39-6279Iipbfzj EducationGastroenterology High-Fiber Eating Plan Fiber, also called [...] Bulgur wheat. Millet. Quinoa. Bran muffins. Popcorn. Powers wafer crackers. Meats and other proteins Liberty beans, kidney beans, and díaz beans. Soybeans. [...] Cream cheese. Sour cream. Fats and oils [place]. Beverages Soft drinks. Other foods Cakes and [...] care provider. Document Revised: (more content not included)...[facility] Behavioral HospitalPre-Certification Formon 65-67-4168Onb-Certification Form [id number]#1.00CD:127NormalOhio State Health SystemFabrigham and [facility]'s [facility] Medicine Office/Clinic Noteon 68-30-5898Lbhoao Medicine Office/Clinic NoteChief Complaint pt here for [...] visit we encourage proper diet and exercise uipn-ksk-ekzxpbr MiraLAX or Colace with Preparation H bfgn-paa-eoptkrr, bleeding has stopped, blood noted on toilet [...] Rectal exam was performed, I did offer ivf embryologist but patient declined, external anus is normal [...] length of time on toilet, sitz bath's, dzxt-ypm-wutalwn medications and suppositories and creams Hydrocortisone lidocaine with applicator gel ordered today to use twice daily Referral for GI referral placed today Ordered: hydrocortisone-lidocaine topical, 1 carmen, Rectal, BID, 60 EA, Refill(s) 1, [facility], 166, cm, 11/11/22 9:28:00 EDT, Height/Length Dosing, 59.4, kg, 11/11/22 9:28:00 EDT, Weight Dosing [facility] Internal Ambulatory Referral 2. Hypothyroidism (E03.9: Hypothyroidism, [...] exercise. Orders: azelastine ophthalmic, (more content not included)...[facility] Behavior[facility] HospitalComment on above:Result Comment: Electronically Signed By: Ya Wang\.br\Date and Time Signed: 11/11/22 09:53 EDTPatient Educationon 88-03-4545Mcijfjy EducationHigh-Fiber Diet Fiber, also called dietary fiber, [...] serving. ? Talk with a diet and antenna specialist (dietitian) if you have questions about [...] Bulgur wheat. Millet. Quinoa. Bran muffins. Popcorn. Powers wafer crackers. Meats and other proteins Liberty, kidney, and díaz beans. Soybeans. Split peas. [...] Cream cheese. Sour cream. Fats and oils [place]. Beverages Soft drinks. Other foods Cakes and [...] 03/07/2006 Document Revised: 01/09/2018 Document Reviewed: 01/09/2018 Specific Media Patient Education ? 2019 [employer]. Gastroenterology H (more content not included)...[facility] Behavior[facility] HospitalAmbulatory Visit Summaryon 43-30-1191Wtuensmwne Visit Summary YANA CHURCH :2000 Visit Date:10/08/2022 [...] f/u for hypothyroid, weight loss Where: [address] [facility], [facility] [address] [address]- Business (1) You Need to Complete the Following Anti-thyroid Abys, Blood, Routine collect, 10/08/22, Order for future visit, Lab Collect, Weight lossInvalid Interpretation CodeHypothyroidismOhio State Health SystemAuto Diffon 64-06-7958Izzsptmsx/100 WBC (Bld)1.1 %Normal0.0-2.0 [facility] Health SystemComment on above:Order Comment: Order Added by Discern Expert.Performed By: #### 3091397, 36347313, 78205607, 7248297, 2700031 ####[facility] [address] [place] [address] Basophils/Leukocytes Auto (Bld) [Pure # fraction]0.1 E9/LNormal0.0-0.2FBlanchard Valley Health System Bluffton HospitalComment on above:Order Comment: Order Added by Discern Expert.Performed By: #### 7367685, 22331846, 70606064, 2842361, 7498872 ####[facility] [address] [place] [address] Eosinophils/100 WBC (Bld)1.2 %Normal0.0-8.0[facility] State Health SystemComment on above:Order Comment: Order Added by Discern Expert.Performed By: #### 5552446, 28625738, 05273081, 9290655, 6437079 ####[facility] Lab [address] [place] [address]Yhwhlqohxqe/Leukocytes Auto (Bld) [Pure # fraction]0.1 E9/LNormal0.0-0.5FBlanchard Valley Health System Bluffton HospitalComment on above: Order Comment: Order Added by Discern Expert.Performed By: #### 0431954, 51660951, 21838932, 4164217, 0924993 ####[facility] Lab [address] [place] [address]Jxphrqjsuqj/100 WBC (Bld)41.0 %Normal 14.0-50.0[facility] State Health SystemComment on above:Order Comment: Order Added by Discern Expert.Performed By: #### 9951190, 73182458, 07274671, 7837882, 4564480 ####[address] [address]Ibimfmpisix/Leukocytes Auto (Bld) [Pure # fraction]2.3 E9/LNormal1.0-4.0 [facility] Health SystemComment on above:Order Comment: Order Added by Discern Expert.Performed By: #### 7883302, 05942572, 59993692, 9091474, 7903735 ####[address] [address] Monocytes/100 WBC (Bld)5.8 %Normal4.0-14.0[facility] State Health SystemComment on above:Order Comment: Order Added by Discern Expert.Performed By: #### 8435870, 98903177, 64108617, 5606108, 3612759 ####[facility] Lab [address] [place] [address]Ttygmwawq/Leukocytes Auto (Bld) [Pure # fraction]0.3 E9/LNormal0.2-1.0[facility] Health SystemComment on above:Order Comment: Order Added by Discern Expert.Performed By: #### 9039712, 48289870, 67581363, 2441389, 7714863 ####[address] [address]Jywftxpfdzb/100 WBC (Bld)50.9 %Afhmlw25.0-75.0 [facility] Health SystemComment on above:Order Comment: Order Added by Discern Expert.Performed By: #### 7655975, 95119422, 13051530, 3163111, 5768851 ####[address] [address] Neutrophils/Leukocytes Auto (Bld) [Pure # fraction]2.8 E9/LNormal2.0-7.5FBlanchard Valley Health System Bluffton HospitalComment on above:Order Comment: Order Added by Discern Expert.Performed By: #### 7475012, 73074619, 50324624, 1554709, 4977802 ####[address] [address]LMF w/ Auto Diffon 68-95-8658Tbahsifccsu distribution width (RBC) [Ratio]12.6 % Yivjna21.9-14.2FBlanchard Valley Health System Bluffton HospitalComment on above:Performed By: #### 0458393, 09313821, 79996601, 6397177, 3512979 ####[address] [address]Blpfggoggt (Bld) [Volume fraction] 40.4 %Vgctgg64.0-46.0[facility] State Health SystemComment on above:Performed By: #### 5718960, 17815341, 96625025, 4125859, 2925041 ####[address] [address]Ovzpedxaum (Bld) [Mass/Vol] 14.1 g/hFHbefpj74.0-16.0[facility] State Health SystemComment on above:Performed By: #### 8559064, 71117052, 10608453, 7192705, 2628203 ####[address] [address]OGP (RBC) [Entitic mass]32.1 nrIenuxy95.0-34.0[facility] Health SystemComment on above:Performed By: #### 5577103, 50153022, 09367878, 1819373, 4202868 ####[address] [address]MPRG (RBC) [Mass/Vol]34.8 g/dLNormal 31.4-36.0[facility] Health SystemComment on above:Performed By: #### 3501219, 04400548, 26802664, 5056205, 6301173 ####[facility] Lab [address] [place] [address]ZSE (RBC) [Entitic vol]92.1 fLNormal 80.0-100.0[facility] Health SystemComment on above:Performed By: #### 4149461, 72033659, 14104832, 0227745, 4615483 ####[address] [address]Ajzgjudb mean volume (Bld) [Entitic vol]9.1 fLNormal6.4-10.8[facility] Health SystemComment on above:Performed By: #### 5254625, 51017832, 53173981, 3617816, 5720857 ####[address] [address]Fgfqeulxh (Bld) [#/Vol]238.0 E9/ZQsdjdl518.0-500.0[facility] Health SystemComment on above:Performed By: #### 5677696, 98115815, 64296136, 5187412, 8991472 ####[address] [address]FAU (Bld) [#/Vol]4.4 E12/L Normal4.3-5.9[facility] Health SystemComment on above:Performed By: #### 2288881, 75389077, 03407891, 1228985, 4483974 ####[address] [address]HLL corrected for nucl RBC Auto (Bld) [#/Vol]5.6 E9/LNormal4.0-11.0[facility] Health SystemComment on above: Performed By: #### 9208103, 01252226, 57147233, 5599847, 0847304 ####[facility] [address] [place], [place] [address]XLGzr 10-08-2022 Albumin [Mass/Vol]4.7 g/dLNormal3.3-5.0[facility] Health SystemComment on above:Performed By: #### 3845497, 36905343, 34340406, 9164509, 5675249 ####[facility] [address] [place] [address] Albumin/Globulin (S) [Mass conc ratio]1.6Dyjbrf9.1-2.2FBlanchard Valley Health System Bluffton HospitalComment on above:Performed By: #### 0787322, 65802526, 11214568, 5344835, 5460010 ####[facility] [address] [place] [address]YUL [Catalytic activity/Vol]42 Int._Unit/NPkyoic58-50SsfhfcOhio State Health SystemComment on above:Performed By: #### 1582676, 69212206, 14691595, 2782330, 9615472 ####[facility] [address] [place], [place] [address]JXH No additional P-5'-P [Catalytic activity/Vol]15 Int._Unit/LNormal6-46 [facility] SystemComment on above:Performed By: #### 8048464, 90994083, 95851444, 5618717, 0091589 ####[facility] Lab [address] [place], [place] [address]Teode gap [Moles/Vol]13 mmol/LNormal6-16 [facility] SystemComment on above:Performed By: #### 0958651, 36353448, 31895835, 1605027, 2258180 ####[facility] Lab [address] [place], [place] [address]PHY [Catalytic activity/Vol]22 Int._Unit/LNormal5-43Fisher [facility] Green Medical CenterComment on above:Performed By: #### 4815467, 10150818, 21602079, 5608284, 6199350 ####[facility] [address] [place], [place] [address]Snuuaziik [Mass/Vol]0.5 mg/dL Normal0.0-1.1FBlanchard Valley Health System Bluffton HospitalComment on above:Performed By: #### 3182179, 63930082, 41807758, 0157500, 9255477 ####[facility] [address] [place], [place] [address]Opuilws [Mass/Vol]9.4 mg/dLNormal 8.9-11.1FBlanchard Valley Health System Bluffton HospitalComment on above:Performed By: #### 4971265, 48243180, 90826167, 6348564, 2486887 ####[facility] Lab [address] [place], [place] [address]Vontzggo [Moles/Vol]107 mmol/LNormal 101-111[facility] State Health SystemComment on above:Performed By: #### 8002966, 15962105, 19735600, 9830082, 2713664 ####[facility] Lab [address] [place], [place] [address]FL6 [Moles/Vol]24 mmol/KCaexjq93-57 [facility] SystemComment on above:Performed By: #### 6406518, 49582868, 42382347, 4073391, 3092986 ####[facility] Lab [address] [place], [place] [address]Iaaskvzhfz [Mass/Vol]0.7 mg/dLNormal 0.5-1.3FBlanchard Valley Health System Bluffton HospitalComment on above:Performed By: #### 3074870, 78150125, 79498061, 0543707, 8992913 ####[facility] Lab [place], [place] [address]Tacsehav (S) [Mass/Vol]3.2 g/dLNormal 1.4-4.0[facility] Health SystemComment on above:Performed By: #### 9742358, 33480428, 76200090, 4620707, 5959495 ####[facility] Lab [address] [place], [place] [address]Abgmhhy [Mass/Vol]105 mg/aOEoqcya97-125 [facility] SystemComment on above:Result Comment: If this glucose result represents a fasting glucose, interpretation should refer tothe following reference range: 55-99 mg/dLPerformed By: #### 2418084, 34181695, 21980459, 8064125, 1869555 ####[facility] [address] [place], [place] [address]Foytqctwj [Moles/Vol]3.9 mmol/LNormal3.5-5.3FBlanchard Valley Health System Bluffton HospitalComment on above:Performed By: #### 9629738, 65750144, 37736675, 0672407, 9071623 ####[facility] [address] [place], [place] [address]Ywfcvut [Mass/Vol]7.9 g/dLHigh6.0-7.8[facility] Health SystemComment on above:Performed By: #### 6260256, 47562186, 37354354, 4799849, 0543802 ####[facility] [address] [place], [place] [address]Xltecm [Moles/Vol]140 mmol/QFodkhq401-370ZiufsqOhio State Health SystemComment on above:Performed By: #### 7822737, 96293129, 01073296, 9576074, 1116069 ####[facility] [address] [place], [place] [address]Mtap nitrogen [Mass/Vol]17 mg/dLNormal5-21[facility] Health SystemComment on above:Performed By: #### 2158648, 28808062, 79795545, 2276958, 8060919 ####[facility] [address] [place], [place] [address]Gniv nitrogen/Creatinine [Mass ratio]24 No YaptyIlfu56-13NowlydOhio State Health System Comment on above:Performed By: #### 6413929, 03950451, 30814710, 0276090, 5336978 ####[facility] [address] [address]Pduxrjv for Treatmenton 79-99-6422Moylijq for Treatment [id number]#1.00CD:127NormalSouthwest General Health Center Medicine Office/Clinic Noteon 82-04-1880Qcjvcu Medicine Office/Clinic NoteChief Complaint Establish care --- [...] Dr Marshall scheduled for nov 2022 Specialists: Electrical Sign Servicer: Bird Álvarez in [place]- contacts most of the time, Dentist: UTD - no issues- Dr Nila MARSHALL- [facility] GINA KASPER Review of Systems [...] Pap testing and gynecologic screenings per her [employer]. Discussed self breast exams and other health [...] and exercise increasing. Patient encouraged to use cgum-tjn-dekicms MiraLAX or Colace, encouraged Preparation H xrzt-fdr-aifelas topical treatments if needed. \ Follow-up only if needed. Patient only having minimal complaints 3. Constipation in female (K59.00: Constipation, unspecified) see #3 4. BMI 20.0-20.9, ad (more content not included)...[facility] HospitalComment on above:Result Comment: Electronically Signed By: Ya Wang\.br\Date and Time Signed: 10/08/22 16:30 EDTPatient Educationon 81-59-0425Aqlpzmn EducationEndocrinology Hypoglycemia Hypoglycemia occurs when the level [...] instructions at home: General instructions ? Take repg-wet-iepaqez and prescription medicines only as told by your health care provider. ? Monitor your blood glucose as told by your health care provider. ? If you drink alcohol: ? Limit how much you have to: ? 0?1 (more content not included)...NormalUpper [facility] Medical Center With T4fr Reflexon 99-43-2879AZN Qn0.58 m[IU]/LNormal0.34-5.60[facility] Health SystemComment on above:Performed By: #### 3728978, 46599448, 12090118, 8563597, 3838287 ####Jhonny [facility] [address] [place], [place] [address]eJGBsr 34-23-3678VKO/1.73 sq M.predicted among non-blacks MDRD (S/P/Bld) [Vol rate/Area]124 mL/min/1.73 x5Guqdka>=59Fisher [facility] Orthopaedic InstituteComment on above:Order Comment: Order added by Discern Expert.Result Comment: Chronic kidney disease could be indicated at eGFR's of less than 60 mL/min/1.73m2. K idney failure is indicated at less than 15 mL/min/1.73m2.Performed By: #### 3881154, 98101243, 82042706, 8662292, 1612226 ####[facility] [address] [place], [place] [address]MTR ACOG PANEL 2: 21 to 29on 10-23-2021..NormalElyria Memorial HospitalComment on above:Performed By: #### CBC #### [facility] [address] [place] [address] Dr. Rima Dinh Gdln ACOG Jljuewd34-19RwyziqYpoTrinity Health SystemComsparrow ionia hospital on above:Performed By: #### CBC #### [facility] [address] [place] [address] Dr. Rima CharlesDIAGNOSIS:CommentProMedica Defiance Regional Hospital on above: Result Comment: NEGATIVE FOR INTRAEPITHELIAL LESION OR MALIGNANCY. THIS SPECIMEN WAS RESCREENED PART OF OUR VAULT KEEPER PROGRAM.Performed By: #### CBC #### [facility] [address] [place] [address] Dr. Rima CharlesMethodology:CommentProMedica Defiance Regional Hospital on above: Result Comment: This liquid based ThinPrep(R) pap test was screened with the use of an image guided system.Performed By: #### CBC #### [facility] [address] [place] [address] Dr. Rima CharlesNote:CommentProMedica Defiance Regional Hospital on above:Result Comment: The Pap smear is a screening test designed to aid in the detection of premalignant and malignant conditions of the uterine cervix. It is not a diagnostic procedure and should not be used as the sole means of detecting cervical cancer. Both false-positive and false-negative reports do occur. .Performed By: #### CBC #### [facility] [address] [place] [address] Dr. Rima CharlesPerformed by:CommentProMedica Defiance Regional Hospital on above: Result Comment: Piter Cagle, Engineering Operator (ASCP)Performed By: #### CBC #### [facility] [address] [place] [address] Dr. Rima Bryson reviewed by:[facility] on above:Result Comment: Hannah Morejon, Supervisory Engineering Operator (ASCP) Performed By: #### CBC #### [facility] [address] [place] [address] Dr. Rima CharlesReflex Criteria:CommentProMedica Defiance Regional Hospital on above:Result Comment: The HPV DNA reflex criteria were not met with this specimen result therefore, no HPV testing was performed. .Performed By: #### CBC #### [place] [address] [address] Rima CharlesSpecimen adequacy:CommentProMedica Defiance Regional Hospital on above:Result Comment: Satisfactory for evaluation. Endocervical and/or squamous metaplastic cells (endocervical component) are present. Areas of partially obscuring blood are present.Performed By: #### CBC #### [facility] [address] [place] [address] Dr. Rima Cornell T4on 73-57-1985Tqze T4 [Mass/Vol]1.01 ng/dLNormal0.76-1.46 [facility] on above:Performed By: #### FT4 #### [facility] [address] [place] [address] Dr. Rima BrowerHoagustín 07-24-0956UOO8.997 uIU/mLCritically high0.358-3.740[facility] on above:Performed By: #### TSH #### [facility] [address] [place] [address] Dr. Rima CharlesVAGINITIS/VAGINOSIS DNA PROBEon 59-23-6734Arobnra speciesNegative NormalNegativeThe [facility] on above:Performed By: #### CBC #### [facility] [address] [place] [address] Dr. Rima Moonerejoba vaginalisNegativeNormalNegativeE[facility] Comment on above:Performed By: #### CBC #### [facility] [address] [place] [address] Dr. Rima Calvo vaginalisNegativeNormalNegativeElyria [facility] Hospital Comment on above:Performed By: #### CBC #### [facility] [address] [place] [address] Dr. Rima CharlesCHLAMYDIA/GONOCOCCUS FRANSISCO (SWAB/URINE/PAPon 09-06-1410Ruezetbxd trachomatis, NAANegativeNormalNegativeElyria Memorial HospitalComment on above: Performed By: #### CBC #### [facility] [address] [place] [address] Dr. Rima CharlesNeisseria gonorrhoeae, NAANegativeNormalNegativeElyria Memorial HospitalComment on above:Performed By: #### CBC #### [facility] [address] [place] [address] Dr. Rima CharlesVAGINITIS/VAGINOSIS DNA PROBEon 14-55-0916Nbhvgkf speciesNegative NormalNegativeElyria Memorial HospitalComment on above:Performed By: #### VAGINT #### [facility] [address] [place] [address] Dr. Rima Moonerebenedict vaginalisNegativeNormalNegativeE[facility]ria [facility] Comment on above:Performed By: #### VAGINT #### [facility] [address] [place] [address] Dr. Rima Calvo vaginalisNegativeNormalNegativeElyria Memorial Hospital Comment on above:Performed By: #### VAGINT #### [facility] [address] [place] [address] Dr. Rima Livingston 60-10-8768VHF8.494 uIU/mLNormal0.470-4.680[facility] Memorial HospitalComment on above:Performed By: #### CBC #### [facility] [address] [place] [address] Dr. Rima Dougherty RANGESEE [facility] HospitalComment on above: Result Comment: <0.34 UIU/ml HYPERTHYROID 0.34-5.60 UIU/ml EUTHYROID >5.60 UIU/ml HYPOTHYROIDPerformed By: #### CBC #### [facility] [address] [address] [address] Rima Barnes MATERNAL FOR SPINA BIFIDAon 54-91-3542JFP MoM0.98[facility] CenterComment on above:Performed By: #### AFPMAT #### [facility] [address] [address] [address] Rima Barnes Value36.3 ng/mLNormalElyria Memorial HospitalComment on above: Performed By: #### AFPMAT #### [facility] [address] [address] [address] Rima Barnes, Serum for Spina BifidaReOhio State East Hospital Comment on above:Performed By: #### AFPMAT #### [facility] [address] [address] [address] Rima CurrieCincinnati Children's Hospital Medical CenterComment on above:Result Comment: Alie Moon, Ph.D., [facility] Director . References: Available Upon Request. . Multiples Of Median Cutoffs For AFP Elevations Murphy 2.5 Black 2.8 IDD 2.0 Twins 4.5 Abbreviation Definitions IDD - Insulin Dep Diabetes OSBR - Open Spina Bifida Risk . For further inquiries contact [facility] at [phone].Performed By: #### AFPMAT #### [facility] [address] [address] [address] Rima Pedro Age Collection Date16.0 weeksUniversity [facility]als Par[facility] Comment on above:Performed By: #### AFPMAT #### [facility] [address] [address] [address] Rima Pedroat, Age Based onLMPNormalElyria Memorial HospitalComment on above:Result Comment: Recalculations are not recommended when gestational dating by LMP and ultrasound are within 10 days.Performed By: #### AFPMAT #### [facility] [address] [place] [address] Dr. Rima CharlesGrant HospitalComsparrow ionia hospital on above:Performed By: #### AFPMAT #### [facility] [address] [place] [address] Dr. Rima CharlesInterpretationCincinnati Children's Hospital Medical CenterComsparrow ionia hospital on above: Result Comment: Interpretation: Screen [...] Customer Services to discuss available options. The [place] recommends amniocentesis be offered to women age 35 and older.Performed By: #### AFPMAT #### [facility] [address] [place] [address] Dr. Rima CharlesMaternahaley Age at EDD23.4 yrUniversity Hospitals Parma Medical CenterComsparrow ionia hospital on above:Performed By: #### AFPMAT #### [facility] [address] [place] [address] Dr. Rima Erazo [facility] HospitalComsparrow ion[facility] hospital on above: Performed By: #### AFPMAT #### [facility] [address] [place] [address] Dr. Rima CharlesOSBR Risk 1 [id number] Hospitals Parma Medical CenterComsparrow ionia hospital on above: Performed By: #### AFPMAT #### [facility] [address] [place] [address] Dr. Rima Meadows.[facility] on above:Performed By: #### AFPMAT #### [facility] [address] [place] [address] Dr. Rima MccoyBarberton Citizens HospitalComment on above: Performed By: #### AFPMAT #### [facility] [address] [place] [address] Dr. Rima Urena Results:NegativeNormalThe [facility] HospitalComment on above: Performed By: #### AFPMAT #### [facility] [address] [place] [address] Dr. Rima Del Rosario B SURFACE ANTIGEN SCREENon 45-55-9566NUpDz ScreenNegative NormalNegativeThe [facility] HospitalComment on above:Performed By: #### HBSANS #### [facility] [address] [place] [address] Dr. Rima RiosTIS C ANTIBODYon 92-92-4112Zew C Virus Ab<0.4Mmcdil7.0-0.9 [facility] on above:Result Comment: Negative: < 0.8 Indeterminate: 0.8 - 0.9 Positive: > 0.9 . The CDC recommends that a positive HCV antibody result be followed up with a HCV Nucleic Acid Amplification test (089794).Performed By: #### HCV #### [facility] [address] [place] [address] Dr. Rima Chery 1 AND 2 WITH REFLEXon 05-78-2854YTA Screen 4th Generation wRfxNon-ReactiveNormalNon ReactiveThe [facility] HospitalComsparrow ionia hospital on above: Performed By: #### HIV12 #### [facility] [address] [place] [address] Dr. Rima CharlesRPR QUANTon 05-54-4233Bzehr Plasma Reagin, QuantNon-Reactive NormalNonRea<1:1[facility] on above:Performed By: #### CBC #### [facility] [address] [place] [address] Dr. Rima MirelesBELLA AB IGGon 05-96-5271Imvmsgj Antibodies, IgG2.33 index NormalImmune >0.99[facility] on above:Result Comment: Non- immune <0.90 Equivocal 0.90 - 0.99 Immune >0.99Performed By: #### RUBIGG #### [facility] [address] [address] [address] Rima Sierra AUTO DIFFon 64-24-4198XGSJ #0.0 103/ulNormal0.0-0.1The [facility] Medical Centerment on above:Performed By: #### CBC #### [facility] [address] [address] [address] Rima CharlesBasophils/100 WBC (Bld)0.4 %Normal0.2-2.0The [facility] Comment on above:Performed By: #### CBC #### [facility] [address] [place] [address] Dr. Rima Fuller #0.0 103/ulNormal0.0-0.7The [facility] HospitalComment on above: Performed By: #### CBC #### [facility] [address] [place] [address] Dr. Rima Leahyosinophils/100 WBC (Bld)0.6 %Critically low0.9-7.0The [facility] HospitalComment on above:Performed By: #### CBC #### [facility] [address] [place] [address] Dr. Rima Leahyrythrocyte distribution width (RBC) [Ratio]12.0 %Cjrlzx94.0-15.0 The [facility] HospitalComment on above:Performed By: #### CBC #### [facility] [address] [place] [address] Dr. Rima CharlesHematocrit (Bld) [Volume fraction]37.5 %Phthdj50.0-48.0The [facility] HospitalComment on above:Performed By: #### CBC #### [facility] [address] [place] [address] Dr. Rima CharlesHemoglobin (Bld) [Mass/Vol]13.2 g/zPRvoyni97.0-16.0The [facility] Centerment on above:Performed By: #### CBC #### [facility] [address] [place] [address] Dr. Rima Carreno #0.02 10e3/ulNormal0.00-0.03The [facility] Medical Centerment on above:Performed By: #### CBC #### [facility] [address] [address] [address] Rima Carreno %0.3 %Normal0.0-0.5The [facility] HospitalComsparrow ionia hospital on above: Performed By: #### CBC #### [facility] [address] [address] [address] Rima Singleton #1.4 103/ulNormal1.2-3.8The [facility] HospitalComsparrow [facility] hospital on above:Performed By: #### CBC #### [facility] [address] [place] [address] Dr. Rima Jayhocytes/100 WBC (Bld)20.2 %Critically low20.5-60.0The [facility] HospitalComsparrow [facility] hospital on above:Performed By: #### CBC #### [facility] [address] [place] [address] Dr. Rima Lr DIFF REQNONormalThe [facility] HospitalComment on above: Performed By: #### CBC #### [facility] [address] [place] [address] Dr. Rima Nicholas (RBC) [Entitic mass]33.2 xcPmrgeo11.7-34.0[facility] on above:Performed By: #### CBC #### [facility] [address] [place] [address] Dr. Rima Fall (RBC) [Mass/Vol]35.2 g/vKNomvvb46.9-35.2The [facility] Centerment on above:Performed By: #### CBC #### [facility] [address] [place] [address] Dr. Rima Fall (RBC) [Entitic vol]94.5 xGCbihln52.0-99.0[facility] on above:Performed By: #### CBC #### [facility] [address] [place] [address] Dr. Rima Grossman #0.4 103/ulNormal0.3-0.8The [facility] HospitalComment on above:Performed By: #### CBC #### [facility] [address] [place] [address] Dr. Rima Wenocytes/100 WBC (Bld)6.1 %Normal1.7-12.0The [facility] Comment on above:Performed By: #### CBC #### [facility] [address] [place] [address] Dr. Rima Huston #5.1 103/ulNormal1.4-6.5The [facility] HospitalComment on above:Performed By: #### CBC #### [facility] [address] [place] [address] Dr. Rima Bobutrophils/100 WBC (Bld)72.4 %Trhygz30.0-75.0The [facility] HospitalComment on above:Performed By: #### CBC #### [facility] [address] [place] [address] Dr. Rima Bradfordlet mean volume (Bld) [Entitic vol]11.2 fLNormal9.5-13.5The [facility] HospitalComment on above:Performed By: #### CBC #### [facility] [address] [place] [address] Dr. Rima CharlesPLT221 103/ytZqzqdn119-719Hda [facility] HospitalComment on above: Performed By: #### CBC #### [facility] [address] [place] [address] Dr. Rima CharlesRBC3.97 106/ulCritically low4.20-5.40The [facility] HospitalComment on above:Performed By: #### CBC #### [facility] [address] [place] [address] Dr. Rima CharlesWBC7.1 103/ulNormal4.0-11.0The [facility] HospitalComment on above: Performed By: #### CBC #### [facility] [address] [place] [address] Dr. Rima Cardenas URINEon 91-97-7083GUPWZAR URINECulture Observations: No growthNoTrinity Health SystemComment on above:Performed By: #### CBC #### [facility] [address] [place] [address] Dr. Rima CharlesGLYCOHEMOGLOBIN A1Con 48-88-4407GXU RECOMMENDATIONADA THERAPEUTIC TARGET 6.0 - 7.0 ACTION SUGGESTED > 7.0NoTrinity Health SystemComment on above:Performed By: #### A1C #### [facility] [address] [place] [address] Dr. Rima CharlesGlucose [Mass/Vol]111 mg/dLUniversity Hospitals Parma Medical CenterComment on above:Performed By: #### A1C #### [facility] [address] [place] [address] Dr. Rima CharlesHbA1c (Bld) [Mass fraction]5.5 %Normal<=6.0[facility] Comment on above:Performed By: #### A1C #### [facility] [address] [place] [address] Dr. Rima Escalante BOX TEST PT SEND OUTon 12-21-3695HDJI TO REF LAB12/09/20 NormalElyria Memorial HospitalComsparrow ionia hospital on above:Performed By: #### CBC #### [facility] [address] [place] [address] Dr. Rima BrowerHoagustín 32-91-3885HJZ1.651 uIU/mLNormal0.470-4.680The [facility] HospitalComsparrow ionia hospital on above:Performed By: #### CBC #### [facility] [address] [place] [address] Dr. Rima Dougherty RANGESEE BELOWUniversity Hospitals Parma Medical CenterComment on above: Result Comment: <0.34 UIU/ml HYPERTHYROID 0.34-5.60 UIU/ml EUTHYROID >5.60 UIU/ml HYPOTHYROIDPerformed By: #### CBC #### [facility] [address] [place] [address] Dr. Rima CharlesTYPE AND SCREENon 37-86-1691LOSK AND SCREENNegativeNoTrinity Health SystemComment on above:Performed By: #### CBC #### [facility] [address] [address] [address] Rima Butler PREG TVon 75-72-3336MB PREG TVEXAMINATION: US PREG TV HISTORY: Urine [...] Electronically authenticated by: LILIANE POPE Date: 2020-12-02 09:34[facility] Vital Signs Date TimeVital SignValuePerforming VquxtyjmbBbtktuqt86-43-1294 08:39-0500Body mass index (BMI) [Ratio]26.29 kg/j2[employer] DO Work Phone: [phone] [place], [place] [address]Oggpkttail14-89-9377 08:39-0500Body awgapr87.67 kgCorey Tunepresto Work Phone: [phone] [place], [place] [address]Ybmarsfode15-99-3107 08:39-0500Diastolic blood mm[Hg][employer]antoshInfusionsoft Work Phone: [phone] [place], [place] [address]Zyxpvcmmfq93-72-5576 08:39-0500Systolic blood cxujunte152 mm[Hg][employer]antoshInfusionsoft Work Phone: [phone] [place], [place] [address]Fqvfwtjraz26-15-3774 08:35-0400Body mass index (BMI) [Ratio]26.71 kg/a6Vymxq Joanna [employer] Work Phone: [phone] HospitalKbpcmixpae76-05-2515 08:35-0400Body wtimrw55.8 kg SantoshInfusionsoft Work Phone: [phone] HospitalNraftdsacp87-70-3565 08:35-0400Diastolic blood ksoyebdw43 mm[Hg]Santosh Joanna DO Work Phone: 1(509)551-[address] [place], [place] [address]Ffrvtgshel54-02-8244 08:35-0400Systolic blood jtflxxei542 mm[Hg]Santosh Joanna DO Work Phone: [phone])[facility] [place], [place] [address]Ooeujvxvdk03-84-0417 11:20-0400Body mass index (BMI) [Ratio]25.38 kg/j4Tldzs Joanna DO Work Phone: [phone])[facility] [place], [place] [address]Glomfpfpih93-19-7509 11:20-0400Body enifeu71.17 kgCorey Joanna DO Work Phone: [phone])[address] [place] [address]-13-2025 11:20-0400Diastolic blood imlztbkr68 mm[Hg]Santosh Joanna DO Work Phone: [phone])[facility] [place], [place] [address]Roaxtlojte89-55-5791 11:20-0400Systolic blood qsxiswii903 mm[Hg]Santosh Joanna DO Work Phone: [phone] [place], [place] [address]9-22-2025 10:23-0400Body mass index (BMI) [Ratio]24.79 kg/m2Amy Brea PA Work Phone: [phone])[facility] [place], [place] [address]Wuphsxnics64-58-2510 10:23-0400Body jwueha89.59 kgAmy Brea PA Work Phone: 1(925)[facility] [place], [place] [address]Zogbhvugas45-93-1779 10:23-0400Diastolic blood kecndpek53 mm[Hg]Erum Guidry PA Work Phone: [phone])[facility] [place], [place] [address]Psacofjfrs42-93-0299 10:23-0400Systolic blood bhdgmmin747 mm[Hg]Erum Guidry PA Work Phone: [phone])[facility] [place], [place] [address]Gojptvjahy67-67-4345 11:45-0400Body mass index (BMI) [Ratio]23.15 kg/c3Zbudo Joanna DO Work Phone: 1(270)[facility] [place], [place] [address]Zmyqwyimxm56-61-1419 11:45-0400Body jjugvf20.1 kg Santosh Joanna DO Work Phone: 1(377)[facility] [place], [place] [address]Tfsjxinpbm04-90-9918 11:45-0400Diastolic blood fmksugaw44 mm[Hg]Santosh Joanna DO Work Phone: [facility] HospitalDkzavtqthe86-21-2651 11:45-0400Systolic blood ncyvukyb313 mm[Hg]Santosh Bhaktao DO Work Phone: [phone]08-18-2025 11:51-0400Body hltifw742.1 cmJacklyn Campos MD Work Phone: 1(369)[address] [place], [place] [address]8-18-2025 11:51-0400Body mass index (BMI) [Ratio]23.03 kg/h3LuruabpaJacklyn Campos MD Work Phone: [phone])[address] [place], [place] [address]8-18-2025 11:51-0400Body doqcrz36.78 kgJacklyn Campos MD Work Phone: [phone])[address] [place], [place] 618[address]8-18-2025 11:51-0400Diastolic blood eywwiqay89 mm[Hg]Jacklyn Campos MD Work Phone: 1(027)[address] [place], [place] [address]8-18-2025 11:51-0400Heart rate 94 /minJacklyn Campos MD Work Phone: [phone] [place], [place] [address]8-18-2025 11:51-0400Systolic blood xyqqdukn50 mm[Hg]Jacklyn Campos MD Work Phone: [phone])[address] [place], [place] [address]7-28-2025 10:13-0400Body mass index (BMI) [Ratio]22.38 kg/m2Erum HAYS Work Phone: [phone] [place], [place] [address]Dhloueydhb78-23-9971 10:13-0400Body yrcvxp86.01 kgErum HAYS Work Phone: 1([phone])428-[address] [place], [place] [address]Kvybinxelt91-43-2290 10:13-0400Diastolic blood caetzryy93 mm[Hg]Erum HAYS Work Phone: [phone])582-[address] [place], [place] [address]Xcuqpteati09-49-8775 10:13-0400Systolic blood zxzrwwqo385 mm[Hg]Erum HAYS Work Phone: [facility] HospitalBbbgpajanm56-05-8546 11:10-0400Body mass index (BMI) [Ratio]22.1 kg/m0Whlrc Joanna DO Work Phone: [phone])966-[address] [place], [place] [address]Ffjkxndbhx20-17-8773 11:10-0400Body yaoosb46.24 kgCorey Joanna DO Work Phone: 1(019)[facility] [place], [place] [address]Ppbuypsoxk79-30-1662 11:10-0400Diastolic blood mwnnzjaf74 mm[Hg]Santosh Joanna DO Work Phone: 1(495)[facility] [place], [place] [address]Mdpedyauwp95-84-4170 11:10-0400Systolic blood ytklysrz180 mm[Hg]Santosh Joanna DO Work Phone: [phone])[address] [place], [place] [address]1005-30-2025 10:00-0400Body mass index (BMI) [Ratio]22.86 kg/m2[facility]05-30-2025 10:00-0400Body dghsix24.32 kgSaint John's Health System05-30-2025 10:00-0400Diastolic blood miecpbxk13 mm[Hg][facility]05-30-2025 10:00-0400Systolic blood grtajcqr197 mm[Hg][facility]09-23-2024 14:19-0400Body mass index (BMI) [Ratio]21.15 kg/x8Cjyuu Joanna DO Work Phone: 1(808)[facility] [place], [place] [address]Igsboahzba91-25-2690 14:19-0400Body phibmc39.66 kgCorey Joanna DO Work Phone: [phone]-[facility] HospitalYyvrtwpxed18-48-6943 14:19-0400Diastolic blood uuzkmwrk63 mm[Hg]Santosh Joanna DO Work Phone: [facility] HospitalQldyzaeoif71-42-0173 14:19-0400Systolic blood cwnbmlxy364 mm[Hg]Santosh Joanna DO Work Phone: 1([phone] [place], [place] [address]Ercdtlzyqv80-15-2397 15:43-0400Blood Pressure Eladia Thornton [phone]-HapicDelaware County Hospital Nkxj04-55-2062 15:43-0400Diastolic blood sbqeggyh86 mm[Hg]Ya Thornton [phone]-Axstc[address] [place], [place] 3513505-20-2024 15:43-0400Heart lzlm653 /Waqar Thornton 456-4894Pywcax-Qzpwd[address] [place], [place] 3513505-20-2024 15:43-0400Respiratory rate18 /Waqar Thornton 447-5205Jpanoo-Jffbe[address] [place], [place] 3513505-20-2024 15:43-0167ZlK4% (BldA) [Mass fraction]100 %Ya Thornton [address] [place], [place] 1562905-20-2024 15:43-0400Systolic blood aptnskwy721 mm[Hg]Ya Thornton [address] [place], [place] 1562912-20-2023 07:21-0500Blood Pressure LocationYa Thornton [address] [place], [place] 1562912-20-2023 07:21-0500Body sohmbufejsn21.52 [degF]Ya Thornton [address] [place], [place] 1562912-20-2023 07:21-0500Diastolic blood mm[Hg]Ya Thornton [address] [place], [place] 1562912-20-2023 07:21-0500Heart rate91 /Waaqr Thornton [address] [place], [place] 1562912-20-2023 07:21-0500Respiratory rate18 /Waqar Thornton [address] [place], [place] 1562912-20-2023 07:21-3792EaZ1% (BldA) [Mass fraction]100 %Ya Thornton [address] [place], [place] 156[address]12-20-2023 07:21-0500Systolic blood bpptkaai924 mm[Hg]Ya Thornton [phone]-MzkimThe [facility]12-04-2023 12:53-0500Blood Pressure LocationYa Thornton [phone]-Scqds[address] [place], [place] 3513512-04-2023 12:53-0500Diastolic blood dmbbczop99 mm[Hg]Ya Thornton [phone]-Hidgp[address] [place], [place] 3513512-04-2023 12:53-0500Heart zmgu458 /Waqar Thornton [phone]-Hcjjj[address] [place], [place] 3513512-04-2023 12:53-0500Respiratory rate18 /Waqar Thornton [phone]-Uovyc[address] [place], [place] 3513512-04-2023 12:53-8198AdQ2% (BldA) [Mass fraction]99 %Ya Thornton 105-7765Qcexsy-Cdptb[address] [place], [place] 3513512-04-2023 12:53-0500Systolic blood mm[Hg]Ya Thornton 606-2302Byihwz-Inqvy[address] [place], [place] 35[address]509-12-2023 12:10-0400Blood Pressure LocationDaniel Gray [phone]-YblfiKindred Hospital [facility]09-12-2023 12:10-0400Body zyipnqlpnsc85.52 [degF]Daniel Gray [phone]-VedpyKindred Hospital Dayton09-12-2023 12:10-0400Diastolic blood blzxzlyi54 mm[Hg]Daniel Gray [phone]-LgemcKindred Hospital Dayton09-12-2023 12:10-0400Heart rate97 /Hans Gray 575-6012Drxogc-JwdolKindred Hospital Dayton09-12-2023 12:10-0400Systolic blood lhpugddn716 mm[Hg]Daniel rGay 173-6277Qwsejt-GsdocKindred Hospital Dayton08-24-2023 09:20-0400Blood Pressure LocationYa Thornton [phone]-Mmjnx[address] [place], [place] 3513508-24-2023 09:20-0400Body ondfswjanmy39.06 [degF]Yasampson Thornton [phone]-Iaxgc[address] [place], [place] 3513508-24-2023 09:20-0400Diastolic blood iymqooec98 mm[Hg]Ya Thornton 270-4036Tyhqmz-Xoebv[address] [place], [place] 3513508-24-2023 09:20-0400Heart rate76 /minEgerald Thornton 254-7570Fbjffu-Dzjbg[address] [place], [place] 3513508-24-2023 09:20-9281MqO6% (BldA) [Mass fraction]98 %Yasampson Thornton 286-4275Hrrshu-Wqqsg[address] [place], [place] 3513508-24-2023 09:20-0400Systolic blood cdsfylyx193 mm[Hg]Ya Thornton [phone]-Izxue[address] [place], [place] 3513502-13-2023 14:14-0500Blood Pressure LocationRitu Desai [phone]-Cacmz[address] [place], [place] 3513502-13-2023 14:14-0500Body zynapybxefz49.7 [degF]Ritu Desai 351-6656Uzgvlq-Mygod[address] [place], [place] 3513502-13-2023 14:14-0500Diastolic blood dsovlcny38 mm[Hg]Ritu Desai [phone]-Murpp[address] [place], [place] 3513502-13-2023 14:14-0500Heart rate71 /minRitu Desai [phone]-Qxomd[address] [place], [place] 3513502-13-2023 14:14-0906XaX0% (BldA) [Mass fraction]98 %Ritu Desai [phone]-WfvgnDunlap [facility] Hospital [facility] Qvui48-13-8347 14:14-0500Systolic blood neulwlyd610 mm[Hg]Ritu Moralesell [phone]-HlejlDunlap Memorial Hospital Primary Bnjq28-81-9979 02:06-0400Body .968 kgDR [facility] HospitalComment on above:Performed By: #### AFPMAT #### [facility] [address] [address] [address] Rima Charles Encounters Encounter DateEncounter TypeCare ProviderFacilityStart: 01-28-2025 End: 36-44-8911Dvxcme flowsheetCorey Joanna DO Work Phone: [facility] [place] [facility]YNStart: 01-28-2025 End: 15-21-3815Rylnlq flowsheetCorey Joanna DO Work Phone: [facility] [place] [facility]YNStart: 01-28-2025 End: 65-35-4136Mtelgimn flow sheetCorey Joanna DO Work Phone: [facility] [place] OBGYNComment on above:Third trimester ([facility]); 32 weeks gestation of ([facility]); Thyroid disease; History of prior with IUGR ; Hypothyroidism, unspecified typeStart: 01-28-2025 End: 37-77-2542rdeukwgmnhPYGCN FAZIONot AvailableStart: 01-14-2025 End: 95-55-2024Kadkdw flowsheetCorey Joanna DO Work Phone: [facility] [place] [facility]YNStart: 01-14-2025 End: 18-20-4625Jjmodx flowsheetCorey Joanna DO Work Phone: [facility] [place] [facility]BGYNStart: 01-14-2025 End: 18-27-4527Iwgezken flow sheetCorey Joanna DO Work Phone: [facility] [place] OBGYNComment on above:Third trimester ([facility]); 30 weeks gestation of ([facility])Start: 01-14-2025 End: 27-43-3428hgdlzcerugRFIIW FAZIONot AvailableStart: 50-46-7605qkfctwcofp Martaishmael RickettsmarcusFacility:[facility] PCStart: 12-31-2024 End: 83-93-5825Wggxwoef flow sheetCorey Joanna DO Work Phone: N[facility] OBGYNComment on above:Third trimester ([facility]); 28 weeks gestation of ([facility])Start: 12-31-2024 End: 61-68-7488rzlhhkohgdWKKEE FAZIONot AvailableStart: 12-12-2024 End: 98-13-2101Lvoagwekc Result EncounterErum HAYS Work Phone: NOPY External Department UnsolicitedStart: 12-12-2024 End: 37-40-2391Ymifdcdsm Result EncounterErum HAYS Work Phone: NOGW External Department UnsolicitedStart: 12-11-2024 End: 79-74-3377klpghrkqedPYZNV R [facility]OSPITALTaurusMedisunny Sycamore HospitalStart: 12-11-2024 End: 68-09-4929Ybayfpnxq Result EncounterErum HAYS Work Phone: NOKK External Department UnsolicitedStart: 12-11-2024 End: 67-16-2508Yisxascqb Result EncounterErum HAYS Work Phone: NOWY External Department UnsolicitedStart: 12-10-2024 End: 83-73-4310Xuakzm flowsheetErum HAYS Work Phone: [facility] [facility]BGYNStart: 12-10-2024 End: 68-05-9080Jzifut oliviaheetErum HAYS Work Phone: [facility] [facility]BGYNStart: 12-10-2024 End: 51-99-9618Zpzjxjug flow sheetErum HAYS Work Phone: NOOF [facility] OBGYNComment on above:Size of fetus inconsistent with dates in second trimester ([facility]) (Primary Dx); Second trimester ([facility]); 25 weeks gestation of ([facility]); Diabetes mellitus screeningStart: 12-10-2024 End: 61-37-2725uzckcbvfltLKH RAMFORTINONot AvailableStart: 11-27-2024 End: 02-66-8581xrqsdhbcefEBKIX R [facility] HospitalStart: 11-20-2024 End: 33-18-8324ogwjadgmtnORMIZ R [facility] HospitalStart: 11-12-2024 End: 07-26-0711Ddlhsi flowsheetCorey Joanna DO Work Phone: [facility] [place] [facility]BGYNStart: 11-12-2024 End: 81-32-9290Nkhhum flowsheetCorey Joanna DO Work Phone: [facility] [place] [facility]BGYNStart: 11-12-2024 End: 21-85-1330Knjkzavn flow sheetCorey Joanna DO Work Phone: [facility] [place] OBGYNComment on above:Hypothyroidism, unspecified type (Primary Dx); Second trimester ([facility]); 21 weeks gestation of ([facility]); Vaginal discharge; STD exposureStart: 11-12-2024 End: 20-32-0088dasofxdpuvFJZSQ FAZIONot AvailableStart: 11-07-2024 End: 02-69-2409Rhzkfagnz Result EncounterCorey Joanna DO Work Phone: noms External Department UnsolicitedStart: 11-07-2024 End: 96-74-0913Ymxhedsyw Result EncounterCorey Joanna DO Work Phone: noms External Department UnsolicitedStart: 11-06-2024 End: 81-59-8368Kityvw Sesar Smith RNMaternal- Medicine at [facility] Health SystemComment on above: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 trimester (Primary Dx); History of prior with IUGR ; History of premature rupture of membranesStart: 11-05-2024 End: 43-71-8583Opfjmp consultation new/estab patient 58 Jesus Campos MD Work Phone: [phone]-Cdiar [facility] Comment on above:20 weeks gestation of (Primary Dx); Low-lying placenta; 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 trimester; History of prior with IUGR ; Family history of autism; History of gestational diabetes in prior , currently ; History of prior with short cervix, currently ; History of premature rupture of membranesStart: 11-05-2024 End: 45-14-9274pxrlnowaezMAPSI [facility] HospitalStart: 10-15-2024 End: 25-35-7373Cddpzn flowsLizzie HAYS Work Phone: noms [place] OBGYNStart: 10-15-2024 End: 86-15-4654Desrxn David HAYS Work Phone: [facility] [place] OBGYNStart: 10-15-2024 End: 26-35-6311Yrqthrlzn Result EncounterErum HAYS Work Phone: noms External Department UnsolicitedStart: 10-15-2024 End: 90-63-0654Hfipkkes flow Mahamed HAYS Work Phone: NOVV [place] OBGYNComment on above:Second trimester ([facility]); 17 weeks gestation of ([facility])Start: 10-15-2024 End: 32-14-5511hkacupogvfVPU RAMEYNot AvailableStart: 10-02-2024 End: 12-62-2436Yphqeunsi Result EncounterCorey Joanna DO Work Phone: noms External Department UnsolicitedStart: 10-02-2024 End: 68-34-4194Qoglldrsn Result EncounterCorey Joanna DO Work Phone: noms External Department UnsolicitedStart: 09-24-2024 End: 69-65-9855Vtrzv Rob Campos MD Work Phone: [phone]-Pqlki [facility] Start: 09-24-2024 End: 17-84-9970Wzuamixyj Result EncounterCorey Joanna DO Work Phone: noms External Department UnsolicitedStart: 09-24-2024 End: 48-57-1908Amcveawff Result EncounterCorey Joanna DO Work Phone: noms External Department UnsolicitedStart: 09-20-2024 End: 37-39-1773Zehwjl Kashif Gutierrez RNMaternal- Medicine at [facility] Health SystemComment on above:Thyroid disease affecting (Primary Dx); History of prior with IUGR newbornStart: 09-17-2024 End: 81-81-0730Rbuxef flowsheetCorey Joanna DO Work Phone: noms BCP OBStart: 09-17-2024 End: 63-08-4630Dggwwu flowsheetCorey Joanna DO Work Phone: noms BCP OBStart: 09-17-2024 End: 44-63-9059vjfypqjojaTZXLZ FAZIONot AvailableStart: 09-17-2024 End: 45-19-1930Becsihky flow sheetCorey Joanna DO Work Phone: noms BCP OBComment on above:13 weeks gestation of ([facility]); Second trimester ([facility]); Thyroid disease ; History of prior with IUGR ; Diabetes mellitus screeningStart: 09-12-2024 End: 43-22-3095Oflxgeeht Result EncounterCorey Joanna DO Work Phone: noms External Department UnsolicitedStart: 09-12-2024 End: 27-87-0360Atdmqlcai Result EncounterCorey Joanna DO Work Phone: noms External Department UnsolicitedStart: 08-21-2024 End: 42-70-6194Qcuainqnv Result EncounterCorey Joanna DO Work Phone: NOMS External Department UnsolicitedStart: 08-21-2024 End: 06-83-2049Jajneshrf Result EncounterCorey Joanna DO Work Phone: NOMS External Department UnsolicitedStart: 08-17-2024 End: 88-42-1701Iqtyhs outpatient visit 5 minutesNoms Bcp Ob Joanna NurseNOMS BCP OBComment on above:GA: 3l9zCapna: 08-17-2024 End: 54-96-4714ddelbqlcyySPAYU FAZIONot AvailableStart: 07-09-2024 End: 20-64-7658ioaidzdhauZvyowgEric AlmanzarFacility:[facility] PCStart: 07-05-2024 End: 02-74-5127rwnsslqaqiWlzji J SosinskiFacility:[facility] PCStart: 07-04-2024 End: 01-22-5746ivwjhdcnwoAzwrmrEric AlmanzarFacility:FTMCStart: 07-04-2024 End: 32-01-7336Zcvymuo encounter Patsy Almanzar [facility] Start: 05-14-2024 End: 60-80-6758mzspciknqoDXHIKU E COSTINAkron [facility] Systemtart: 05-14-2024 End: 91-16-3837Yoskgmzwmz hospital visit by Krys Jurado MD Work Phone: [facility] LabComment on above:Family history of autismStart: 12-12-2023 End: 80-48-8290Lfndov flowsheetCorey Joanna DO Work Phone: [facility] BCP OBStart: 12-12-2023 End: 05-56-2047Ayscfa flowsheetCorey Joanna DO Work Phone: [facility] BCP OBStart: 12-12-2023 End: 00-71-2952Hcxhsxpem Result EncounterCorey Joanna DO Work Phone: noMS External Department UnsolicitedStart: 12-12-2023 End: 95-44-8923Faexbzy encounter procedureCorey Joanna DO Work Phone: [facility] Work Phone: Start: 12-12-2023 End: 43-75-3454Nqqtqerz preventive med est patient 18-39 yrsCorey Joanna DO Work Phone: NOZV BCP OBComment on above:Well woman exam with routine gynecological examStart: 09-07-2023 End: 53-88-0501kbstcnjztfIhdxgubpv L ClarkFacility:FTMCStart: 09-07-2023 End: 62-95-5235Qmlyhnl encounter procedureYa Thornton [facility] Start: 08-08-2023 End: 97-23-4677zxxdptliyeRvzvefmkd L ClarkFacility:[facility] PCStart: 08-08-2023 End: 94-61-1980Ayzdycz encounter Rosina Thornton [phone]-AxzxhDunlap [facility] Start: 07-12-2023 End: 28-86-7787bptxwuiwymIZOSXPRH E PERRYFacility:EU ueStart: 07-12-2023 End: 59-39-8899Gzyikcf encounter procedureJENNIFER E SUKH [facility]ue start: 05-16-2023 End: 49-26-9095knkopngfgqBmedjfeex L ClarkFacility:FTMCStart: 05-16-2023 End: 31-89-1504csramcdydzOpwplpooe L ClarkFacility:[facility] PCStart: 04-01-2023 ambulatoryYa ThorntonFacility:EU BellevueStart: 03-24-2023 End: 19-09-7010ykzokqmmfmGydupnpej L ClarkFacility:FTMCStart: 03-24-2023 End: 66-45-5083Dzamlta encounter procedureYa Thornton [facility] Start: 03-22-2023 End: 28-25-2162wcdgiqkuuvQemgdnjaz L ClarkFacility:FTMCStart: 03-22-2023 End: 55-59-0097Oggafqe encounter procedureYa Thornton [facility] Start: 03-09-2023 End: 78-52-8472Hha Drop offYa Thornton [facility] start: 03-09-2023 End: 88-03-2340ekxqqrodsuKofqrokwj L ClarkFacility:FTMCStart: 03-09-2023 End: 92-52-8097Hcpjbln encounter procedureYa Thornton [phone]-OnmfcDunlap Memorial Hospital [facility] Start: 02-21-2023 End: 36-92-8810Hhy Drop offYa Thornton [facility] Start: 02-21-2023 End: 72-09-4917phpknjnrhnPorrypumq L ClarkFacility:FTMCStart: 02-21-2023 End: 30-65-2398Judqpqe encounter procedureYa Thornton [phone]-JjtbqDunlap Memorial Hospital [facility] Start: 11-30-2022 End: 58-98-8026njujkrwhuuScvg A SteinmetzFacility:[facility] DHStart: 11-30-2022 End: 11-21-5357Wjmimeb encounter procedureDaniel Gray [phone]-UbllkDunlap Memorial Hospital [facility] Start: 06-59-6351yvrkexosinMmywqwujs Clark Facility:[facility] DHStart: 11-11-2022 End: 67-49-4461ymqandgajuAsrdqtfid L ClarkFacility:[facility] PCStart: 11-11-2022 End: 52-41-4287Tqkvxke encounter procedureYa Thornton [phone]-GzrohDunlap Memorial Hospital [facility] Start: 10-08-2022 End: 37-29-3844pnmahicgrrKfqmnyxdj L ClarkFacility:MCStart: 10-08-2022 End: 69-50-3162wllgannevzMaiytixks L ClarkFacility:[facility] PCStart: 05-03-2022 End: 52-71-3015Bgeaild encounter procedureRitu Desai [phone]-AlmnzDunlap Memorial Hospital [facility] Start: 10-19-2021 End: 82-81-0941lasnitdnpsNR SANTOSH FAZIOFacility:G1Upnvp: 10-17-2021 End: 01-05-8211zjuwfskkorER SANTOSH FAZIOFacility:A2Jwpsn: 83-34-5194iigqdamgtwFQ SANTOSH FAZIOFacility:T6Muddt: 07-13-2021 End: 50-84-8559kvaoalfyeyBH DOCTOR MISCFacility:K1Xbgin: 05-06-2021 End: 22-66-9781mbffalegxhPM ERASMO KARASIKFacility:Z3Jonaw: 02-24-2021 End: 50-48-8218elsfhstaqqHC SANTOSH FAZIOFacility:U1Lkhoy: 01-13-2021 End: 80-90-9354mgtjtmeesnDV SANTOSH FAZIOFacility:X0Jtltq: 12-09-2020 End: 32-59-7132ikrxzhqykmNH SANTOSH FAZIOFacility:Y9Cwfpt: 12-02-2020 End: 73-56-7944aqgbkzkecbSJ SANTOSH FAZIOFacility:H1 Procedures DateProcedureProcedure DetailPerforming ClinicianStart: 25-16-7776Qjpyi dip stick/tablet rgnt non-auto w/o micrscpCorey Joanna DO Work Phone: Start: 32-04-5019Vctcd dip stick/tablet rgnt non-auto w/o micrscpAmy Brea HAYS Work Phone: Start: 88-73-8213Vxckl dip stick/tablet rgnt non-auto w/o micrscpCorey Joanna DO Work Phone: Start: 55-29-6105MTFWFKI TOLERANCE 3 HOURAmy Brea HAYS Work Phone: Start: 57-22-5277RGF CBC WITH AUTO DIFFAmy Brea HAYS Work Phone: Start: 07-89-8647Wwvml dip stick/tablet rgnt non-auto w/o micrscpAmy Brea HAYS Work Phone: Start: 47-76-9836Cukea dip stick/tablet rgnt non-auto w/o micrscpCorey Joanna DO Work Phone: Start: 51-02-3759VZZ THYROID STIM HORMONECorey Joanna DO Work Phone: Start: 98-62-0882JGN, SERUM, OPEN SPINA BIFIDAAsusanne HAYS Work Phone: Start: 67-40-5512Ourfd dip stick/tablet rgnt non-auto w/o micrscpCorey Joanna DO Work Phone: Start: 80-27-2651PUCJKVN 1 HOURCorey Joanna DO Work Phone: Start: 70-63-3956PEF MISCELLANEOUS TESTCorey Joanna DO Work Phone: Start: 26-91-3820LPL MISCELLANEOUS TESTCorey Joanna DO Work Phone: Start: 94-81-0431Xtsrnkiwbarry Campos MD Work Phone: Start: 24-63-3644LNS W Auto Differential panel - Blood Santosh R Joanna DO Work Phone: Start: 76-52-5026Pdud scrn 1+ class nonchromoNot In System Ref ProvStart: 75-07-8686Ayzbwwbquw glycosylated e0mFyhml R Joanna DO Work Phone: Start: 39-83-2355Aznbsfbpf c antibodyNot In System Ref ProvStart: 39-37-9390DTV 1&2 AB/AG SCREEN (P24 AG)Not In System Ref ProvStart: 17-30-7320Kvtt ia hepatitis b surface antigenNot In System Ref ProvStart: 53-11-8742DNVBXMHC TOTAL(UNKNOWN SYPHILIS STATUS)Not In System Ref ProvStart: 21-44-4198UPTU AND SCREENNot In System Ref ProvStart: 21-54-4803JTN CBC WITH AUTO DIFFCorey Joannaigadget.asia Work Phone: Start: 08-17-2024 End: 65-91-0647Tsswh dip stick/tablet rgnt non-auto w/o micrscpCorey Joannaigadget.asia Work Phone: Start: 51-71-6886JXT,APTIMA HPV,AGE GDLNCorey Joannaigadget.asia Work Phone: Start: 25-56-5660Sthnp depression screening assessment Jacklyn Campos MD Work Phone: None (qualifier value)Ritu Desai Plan of Treatment DateCare ActivityDetailAuthorStart: 44-63-6197ODfS,Tdap and Td Vaccines (8 - Td or Tdap)DTaP,Tdap and Td Vaccines (8 - Td or Tdap)[facility] HospitalElementum SystemStart: 11-06-2025 End: 27-63-0502YV MFM with or without consultUS MFM with or without consult Imaging Routine 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 trimester History of prior with IUGR History of premature rupture of membranes Expected: 11/06/2025 (Approximate), Expires: 11/06/2025[facility] Work Phone: comment on above:Expected: 11/06/2025 (Approximate), Expires: 11/06/2025Start: 74-54-8905Qajjc BMI ScreeningAdult BMI Screening [facility] SystemStart: 56-02-7645Dkcpozl ScreeningTobacco Screening [facility] SystemStart: 02-13-2025 End: 55-54-0851Ycxccrf encounter xezoftxop82/26/2025 10:50 AM EST Routine [facility] [address] [place] [phone] Santosh Marshall DO [address] [place] [address] [facility] [place] [facility]BGYNStart: 02-04-2025 End: 71-10-9738Jzntlxisufrw / ancillary services wfnivfnmkm44/17/2025 8:00 AM EST Ancillary Procedure [facility] [address] [place] [address] [facility] [place] [facility]BGYNStart: 01-28-2025 End: 63-93-1145XU biophysical profile w non stress testUS biophysical profile w non stress test Imaging Routine Thyroid disease History of prior with IUGR Hypothyroidism, unspecified type Expected: 01/28/2025 (Approximate), Expires: 07/28/2025[facility] Work Phone: comment on above:Expected: 01/28/2025 (Approximate), Expires: 07/28/2025Start: 01-28-2025 End: 91-27-1254UX for pregnancyUS OB follow up transabdominal approach Imaging Routine Thyroid disease History of prior with IUGR Hypothyroidism, unspecified type Expected: 01/28/2025, Expires: 05/28/2025[facility] HealthcareComment on above:Expected: 01/28/2025, Expires: 05/28/2025Start: 01-28-2025 End: 37-73-1941Axutzbq encounter acjermcdf15/10/2025 8:30 AM EST Routine [facility] [address] [place], [id number] Santosh Marshall, DO [address] [place] [address] ArrivedNOMS [place] OBGYNComment on above:ArrivedStart: 01-14-2025 End: 12-33-4102Hahbnll encounter procedureNOMS [facility]ina OBGYNComment on above: ArrivedStart: 01-01-2025 End: 90-60-4505Wezysiz encounter procedureNOMS BCP OBStart: 12-31-2024 End: 18-70-6993Jwlmbqy encounter /13/2025 11:00 AM EDT Routine [facility] [address] [place] [address] Santosh Marshall, DO [address] [place] [address] [facility] [place] [facility]YNStart: 12-31-2024 End: 07-41-1486Jwftsuqcwisw / ancillary services pgbcoqaqwd76/13/2025 10:30 AM EDT Ancillary Procedure [facility] [address] [place] [address] [phone] [place] OBGYNStart: 12-17-2024 End: 84-85-5589Cjybayc encounter cxlehyzce06/29/2025 3:00 PM EDT Office Visit [facility] [address] [place] [address] Santosh Marshall, [address] [place] [address] [facility]OM[facility] BCP OBStart: 12-11-2024 End: 35-63-3364Mnygens encounter dnehwtqsx82/23/2025 2:15 PM EDT Appointment [facility] - Ultrasound [address] [place] [address] [phone] Health Hamilton - UltrasoundStart: 12-10-2024 End: 89-49-1091UKI panel - Blood by Automated countCBC Lab Routine Diabetes mellitus screening Expected: 12/10/2024 (Approximate), Expires: 12/10/2025[facility] Work Phone: comment on above:Expected: 12/10/2024 (Approximate), Expires: 12/10/2025Start: 12-10-2024 End: 52-24-2925Hfwopsuubnn of glucose 1 hour after glucose challenge for glucose tolerance testGlucose tolerance, 1 hour Lab Routine Diabetes mellitus screening Expected: 12/10/2024 (Approximate), Expires: 12/10/2025[facility] HealthcareComment on above:Expected: 12/10/2024 (Approximate), Expires: 12/10/2025Start: 12-10-2024 End: 74-41-1907MN for pregnancyUS OB follow up transabdominal approach Imaging Routine Size of fetus inconsistent with dates in second trimester ([facility]) Expected: 12/10/2024, Expires: 04/11/2025[facility] HealthcareComment on above: Expected: 12/10/2024, Expires: 04/11/2025Start: 12-10-2024 End: 21-34-2032Lbgxsxu encounter procedureNOMS [place] OBGYNComment on above: ArrivedStart: 11-27-2024 End: 17-75-7974Tgnhljl encounter erfkbzqon71/09/2025 3:15 PM EDT Appointment [facility] - Ultrasound [address] [place] [address] [phone] City Hospital - UltrasoundStart: 11-20-2024 End: 77-40-2112Koztful encounter zrpgmqfvi44/02/2025 3:45 PM EDT Appointment [facility] [address] [place] [address] [phone] County Hospital US ImagingStart: 11-19-2024 Influenza vaccinationInfluenza VaccineReplaced by [facility] Ansontart: 11-12-2024 End: 10-21-8684Abclmvr encounter procedureUMESH [place] OBGYNComment on above: ArrivedStart: 11-05-2024 End: 21-82-5609Hveecjo encounter procedureMer[facility] US ImagingStart: 10-21-2024 End: 81-20-8907MD MFM with or without consultUS [facility] with or without consult Imaging Routine Thyroid disease affecting History of priorpregnancy with IUGR Expected: 10/21/2024 (Approximate), Expires: 09/20/2025 [facility] Work Phone: comment on above:Expected: 10/21/2024 (Approximate), Expires: 09/20/2025Start: 10-15-2024 End: 04-49-4032Yagxm fetoprotein, maternalAlpha fetoprotein, maternal Lab Routine 17 weeks gestation of ([facility]) Expected: 10/15/2024 (Approximate), Expires: 12/16/2024[facility] Work Phone: comment on above:Expected: 10/15/2024 (Approximate), Expires: 12/16/2024Start: 10-15-2024 End: 48-25-2522Kcazhpg encounter procedureNOMS CASSANDRA OBComment on above:Arrived Start: 09-17-2024 End: 61-34-6375Shcuszjrvrz of glucose 1 hour after glucose challenge for glucose tolerance testGlucose tolerance, 1 hour Lab Routine Diabetes mellitus screening Expected: 09/17/2024 (Approximate), Expires: 09/17/2025[facility] Work Phone: comment on above:Expected: 09/17/2024 (Approximate), Expires: 09/17/2025Start: 09-17-2024 End: 53-59-1180Pwzcbmu encounter nnnuvopkn75/30/2025 10:50 AM EDT Routine [facility] [address] [place] [phone] Santosh Marshall, DO [address] [place] [address] NOMS BCP OBStart: 08-17-2024 End: 43-38-4941QSI/RhABO/Rh Lab Routine Missed menses , unspecified gestational age Expected: 08/17/2024 (Approximate), Expires: 08/17/2025[facility] HealthcareComment on above:Expected: 08/17/2024 (Approximate), Expires: 08/17/2025Start: 08-17-2024 End: 81-96-7501Rhmpf type and Indirect antibody screen panel - BloodType and screen Lab Routine Missed menses , unspecified gestational age Expected: 08/17/2024 (Approximate), Expires: 08/17/2025[facility] HealthcareComment on above:Expected: 08/17/2024 (Approximate), Expires: 08/17/2025Start: 08-17-2024 End: 27-23-0937Ratgc of abuse panel - Urine by Screen methodRapid drug screen, urine Lab Routine , unspecified gestational age Encounter for supervision of normal first in first trimester Expected: 08/17/2024 (Approximate), Expires: 08/17/2025[facility] HealthcareComment on above:Expected: 08/17/2024 (Approximate), Expires: 08/17/2025Start: 08-09-2024 End: 88-90-7029JW Pelvis transvaginalUS OB transvaginal Imaging Routine Missed menses Expected: 08/09/2024, Expires: 11/09/2024[facility] Work Phone: comment on above:Expected: 08/09/2024, Expires: 11/09/2024Start: 90-49-4679BDRHB-19 ( season)COVID-19 ( season)[facility]: 42-31-7296SSR (#1)FLU (#1)[facility]: 34-30-4945Atszcyfskz ScreeningDepression Screening [facility]Start: 17-27-0627ecmoedzntbVsqscuuipaBnsfondw:K7Uyrfu: 72-16-0072Qvsmpbkilyn observation [Identifier] in Cervix by Cyto stainPap Smear [facility]: 44-44-3603Njgrugaah for malignant neoplasm of cervixPap SmearReplaced by [facility] Ansontart: 71-78-2974Uxbdnmykr B (1 of 3 - 19+ 3-dose series)Hepatitis B (1 of 3 - 19+ 3-dose series)[facility] Start: 55-76-5687Snuxg BMI ScreeningAdult [facility]ening[facility] Start: 00-63-8009KsuY (1 of 2 - MenB 2-Dose Series Bexsero)MenB (1 of 2 - MenB 2-Dose Series Bexsero)[facility]: 97-53-4801EWV (1 - 3-dose series)HPV (1 - 3-dose series)[facility] 2011 Varicella (1 of 2 - 13+ 2-dose series)Varicella (1 of 2 - 13+ 2-dose series) [facility]: 31-62-3886Ramjpfn ScreeningTobacco Screening Replaced by [facility] Ansontart: 68-62-7756[place] Diphtheria and Pertussis Vaccines (1 - Tdap)Tetanus Diphtheria and Pertussis Vaccines (1 - Tdap)[facility]: 31-39-3982OSG (1 of 1 - Standard series)MMR (1 of 1 - Standard series)[facility] identified [facility] U[facility] by Culture Urine culture Microbiology Routine Missed menses Ordered: 08/17/2024[facility] HealthcareComment on above:Ordered: 08/17/2024BC W Auto Differential panel - BloodCBC and differential Lab Routine Missed menses , unspecified gestational age Ordered: 08/17/2024[facility] HealthcareComment on above:Ordered: 08/17/2024HLAMYDIA TRACHOMATIS (GENITO/STI)CHLAMYDIA TRACHOMATIS (GENITO/STI) Lab Routine STD exposure Ordered: 11/12/2024[facility] HealthcareComment on above: Ordered: 11/12/2024ytology Cervical or vaginal smear or scraping studyPap Smear Pathology and Cytology Routine Well woman exam with routine gynecological exam Ordered: 12/12/2023[facility] Healthcare Work Phone: comment on above:Ordered: 12/12/2023 End: [id number] Extraction and [facility] Work Phone: Comment on above:1 Occurrences starting 05/14/2024 until 05/14/2024, 1 completedHemoglobin A1c/Hemoglobin.total in BloodHemoglobin A1c Lab Routine Missed menses , unspecified gestational age Ordered: 08/17/2024[facility] HealthcareComment on above:Ordered: 08/17/2024Hepatitis B virus surface Ag [Presence] in Serum or Plasma by ImmunoassayHepatitis B surface antigen Lab Routine Missed menses , unspecified gestational age Ordered : 08/17/2024[facility] HealthcareComment on above:Ordered: 08/17/2024Hepatitis C virus Ab [Presence] in Serum or Plasma by ImmunoassayHepatitis C antibody Lab Routine Missed menses , unspecified gestational age Ordered: 08/17/2024[facility] HealthcareComment on above:Ordered: 08/17/2024HIV-1/HIV-2 antigen/antibody combination immunoassayHIV-1 and HIV-2 antibodies Lab Routine Missed menses , unspecified gestational age Ordered: 08/17/2024[facility] HealthcareComment on above:Ordered: 08/17/2024Neisseria gonorrhoeae DNA [Presence] in Unspecified specimen by FRANSISCO with probe detectionNeisseria gonorrhea DNA probe, direct Lab Routine STD exposure Ordered: 11/12/2024[facility] HealthcareComment on above:Ordered: 11/12/2024Reagin Ab [Presence] in Serum by RPRRPR Lab Routine Missed menses , unspecified gestational age Ordered: 08/17/2024[facility] HealthcareComment on above:Ordered: 08/17/2024Rubella antibody, IgGRubella antibody, IgG Lab Routine Missed menses , unspecified gestational age Ordered: 08/17/2024 [facility] HealthcareComment on above:Ordered: 08/17/2024SURESWAB(R) ADVANCED VAGINITIS PLUS, TMASURESWAB(R) ADVANCED VAGINITIS PLUS, TMA Pathology and Cytology Routine Vaginal discharge Ordered: 11/12/2024[facility] Healthcare Work Phone: comment on above:Ordered: 11/12/2024Thyrotropin [Units/volume] in Serum or PlasmaTSH Lab Routine Missed menses , unspecified gestational age Encounter for supervision of normal first in first trimester Ordered: 08/17/2024[facility] HealthcareComment on above:Ordered: 08/17/2024 End: 37-16-8476Wopxqazjrrc [Units/volume] in Serum or PlasmaTSH Lab Routine Hypothyroidism, unspecified type 9 Occurrences starting 11/12/2024 until 11/12/2025[facility] Healthcare Work Phone: comment on above:9 Occurrences starting 11/12/2024 until 11/12/2025US Pelvis transvaginalUS OB transvaginal Imaging Routine Missed menses 08/17/2024 9:27 AM [facility] Immunizations Immunization DateImmunizationNotesCare ClzfgtcsZxqxrxxo17-38-0246vcctgcb toxoid, reduced diphtheria toxoid, and acellular pertussis vaccine, adsorbedNancyzabemonty Thornton [phone]-KopdqThe [facility]08-02-2016 meningococcal B vaccine, fully recombinantNancyzabeth Norberto [phone]-MibahThe [facility]06-27-2016 meningococcal ACWY vaccine, unspecified formulationNancyzabemonty Thornton [phone]-YmseuThe [facility]06-27-2016 meningococcal B vaccine, fully recombinantNancyzabeth Norberto [phone]-DdcspThe [facility]04-04-2011 meningococcal ACWY vaccine, unspecified formulationNancyzabeth Norberto [phone]-OxzjbThe [facility]04-04-2011 tetanus toxoid, reduced diphtheria toxoid, and acellular pertussis vaccine, adsorbedElizabeth Norberto [phone]-XxwlgThe [facility]11-12-2009 influenza virus vaccine, unspecified formulationJacklyn Campos MD Work Phone: [phone] [place], [place] 8354607-28-2004DTaP, unspecified formulationElizabeth Norberto [phone]-FohgkThe [facility]07-28-2004 measles, mumps and rubella virus vaccineElizadaniel Thornton [phone]-TwjphThe [facility]07-28-2004 poliovirus vaccine, unspecified formulationElisampson Thornton [phone]-Xkmin[address] [place], [place] 3513511-15-2000DTaP, unspecified formulationElizadaniel Thornton [phone]-Ekjav[address] [place], [place] 3513511-08-1999 measles, mumps and rubella virus vaccineElizabemonty Thornton [phone]-Yyhlg[address] [place], [place] 3513511-08-1999 varicella virus vaccineElizadaniel Thornton [phone]-Lhgxh[address] [place], [place] 3513507-23-1999DTaP, unspecified formulationElisampson Thornton [phone]-Wxrmf[address] [place] [address] Primary Hbzj53-17-5557TAqB, unspecified formulationElizadaniel Thornton [phone]-Jhvkw[address] [place] [address] Primary Uwji99-59-6072BZvP, unspecified formulationYa Thornton [phone]-Aqrde[address] [place], [place] 3513510-31-1998 hepatitis B vaccine, pediatric or pediatric/adolescent dosageElizadaniel Thornton [phone]-LsdmcDunlap Memorial Hospital Primary CareNEGATED: Highlighted row has not occurred!39-13-3689mmyfystmc virus vaccine, unspecified formulationDaniel Gray [phone]-JwqwkDunlap Memorial Hospital Digestive HealthNEGATED: Highlighted row has not occurred!47-65-3639ypmvcceba virus vaccine, unspecified formulationRitu Desai [phone]-DzzzqDunlap Memorial Hospital Primary Care Payers DatePayer CategoryPayerPolicy [id number] [facility] [id number] - [id number] [id number] Health [id number] 2023Medicaid [facility] MEDICAID [id number] Care Other (unspecified)[employer] [id number] 2.840.1.314356.3.57[id number] 2.160.1.980182.3.57[id number] 2.0.1.264220.3.579.[id number] 2.840.1.157647.3.579.[id number] 2.840.1.858945.3.579.2.38367-60-0149Eriqidz6141503 2.0.1.654551.3.57[id number] 2.0.1.451423.3.579.[id number] 2.840.1.200835.3.579.2.59592-27-9301Vfxouwo7183827 2.840.1.249161.3.579.2.39379-69-1161Njymzqb2419379 2.840.1.560224.3.579.[id number] 2.16840.1.422657.3.579.2.59251-62-1293Sgdfcbj04539214 2.840.1.874032.3.579.2.38395-60-1691Mzauxbn93889868 2.16840.1.025088.3.579.2.48835-28-9560Jbkcxvr24557163 2.16840.1.232220.3.579.2.49612-48-0547Ahefrmt82728325 2.16840.1.499202.3.579.2.15835-50-8368Qqylisu76018884 2.16840.1.222628.3.579.2.42116-01-7035Qdmudyk14666238 2.16840.1.435235.3.579.2.13649-02-2011Xbxmwog25126604 2..1.444300.3.579.2.23416-90-8479Mcoglik63984745 2.840.1.119464.3.579.2.69769-50-0840Rhyaiug75142080 2.840.1.753644.3.579.2.89352-52-3656Rhympwu82682898 2.840.1.274930.3.579.2.24174-59-6020Qyrbkpe55005604 2..1.727927.3.579.2.27404-05-8118Dqmdkep11215668 2.16840.1.665313.3.579.2.43826-35-2758Rqgehct80026193 2.16840.1.555079.3.579.2.26737-76-0790Uqtstui68032258 2.16840.1.048113.3.579.2.44858-60-8298Msndnbn21191860 2.840.1.636580.3.579.2.23922-61-6185Yjmqyhp317662463 2.16.840.1.846047.3.579.2.16607-63-2328Pklgfyu51584802 2.16.840.1.735731.3.579.2.59856-70-7720Mjyslll77634792 2.16.840.1.876284.3.579.2.96058-34-3598Allbsqs38987336 2.16.840.1.337320.3.579.2.43220-13-0984Ozkdnba38435150 2.16.840.1.451877.3.579.2.90082-09-9901Wuemjuy67177274 2.16.840.1.794131.3.579.2.59194-98-8785Apjzyni66633834 2.16.840.1.630005.3.579.2.69328-73-9823Rclbbvb57473287 2.16.840.1.479890.3.579.2.92307-58-6791Boxdpsw901370108 2.16840.1.863876.3.579.2.721735-90-4283Ehvxttk731649834 2.16.840.1.792089.3.579.2.605947-38-5900Hxqsyda489603771 2.16.840.1.266287.3.579.2.665724-21-8664Stgpzgu915672188 2.16.840.1.571842.3.579.2.339633-82-2120Kbmmado309550120 2.16.840.1.825538.3.579.2.728654-78-4239Kwrszfh12737420 2.16.840.1.753166.3.579.2.645105-45-4917Ixhxdna32119262 2.16.840.1.091579.3.579.2.197501-67-0215Eahbdil93353176 2.16.840.1.148683.3.579.2.585637-67-6125Oqybfkh74460551 2.16.840.1.508346.3.579.2.027582-79-4596Rizzlbk12899578 2.16.840.1.559122.3.579.2.321742-54-4818Akiybtz38230815 2.16.840.1.098645.3.579.2.869259-89-3655Ertwyoj92174812 2.16.840.1.004504.3.579.2.807636-36-1414Zclyggi45533161 2.16.840.1.935628.3.579.2.434758-46-0183Anmmzkw3355505 2.16.840.1.863258.3.579.2.879899-36-2611Xwszobs9223711 2.16.840.1.827159.3.579.2.909574-64-2149Ftlh-wao26-55-0414Ktalitc825763811232 91-16-9714Qjvfheh27258817695427349Ojrraga1862484236889-44-7254Mvtnpcy1089892918Psfdhtj8150798 2.0.1.065485.3.579.2.928Azxqnij506548953217 Social History DateTypeDetailFacilityStart: 05-03-2022 End: 71-33-5577Wrhkxgy smoking statusNever smoked tobacco (finding)[facility] Primary CareStart: 42-19-7785Dyxaclp smoking statusNeverBlanchard Valley [facility] CareStart: 07-12-2023 End: 41-37-8970Stw Assigned At BirthFeGeorgetown Behavioral Hospitaltart: 12-12-2023 End: 21-98-8153Yolprpksr beverage intakeCurrent drinker of alcohol (finding)[facility] HospitalStart: 07-12-2023 End: 56-48-7028Irqswun of Social functionNOMS HealthcareStart: 00-10-2017Rudrvdm Commentoccasional alcohol useNOMS HealthcareStart: 48-16-5644Hmu assigned at birthNot on fileChildren's Mercy HospitalTobacco smoking status NHISTobacco smoking consumption unknownWexner Medical Centerexual OrientationShelby Memorial Hospital Start: 07-02-2009 End: 33-09-7903NorXjdwgc (finding)[facility] Hospitaltart: 06-30-2024 PregnancyNOMS HealthcareStart: 40-25-0559Jbaesnw use and exposureSmokeless tobacco non-userProMedica Toledo Hospital SystemStart: 09-24-2024 End: 06-27-2812Dqncyhnex beverage intakeEx-drinker (finding)[facility] SystemThe thought of harming myself has occurred to [facility] Equipment Procedure CodeEquipment CodeEquipment Original TextEquipment IdentifierDates Glucose Test Strips, See Instructions, 1 EA, 3, Glucose Test Strips, [employer] [facility] [employer] #37, Supply, 166, cm, 10/08/22 15:10:00 EDT, Height/Length Dosing, 57.8, kg, 10/08/22 15:10:00 EDT, Weight DosingStart: 23-58-1751Nnyhmrs, See Instructions, 100 lancet(s), 3, Lancets, [employer] [facility] [employer] #37, Supply, 166, cm, 10/08/22 15:10:00 EDT, Height/Length Dosing, 57.8, kg, 10/08/22 15:10:00 EDT, Weight DosingStart: 60-51-3593Lmqcqwu Test Strips, See Instructions, 1 EA, 3, Glucose Test Strips, [employer] [facility] [employer] #37, Supply, 166, cm, 10/08/22 15:10:00 EDT, Height/Length Dosing, 57.8, kg, 10/08/22 15:10:00 EDT, Weight DosingStart: 68-75-1029Mjjzzlw, See Instructions, 100 lancet(s), 3, Lancets, [employer] [facility] [employer] #37, Supply, 166, cm, 10/08/22 15:10:00 EDT, Height/Length Dosing, 57.8, kg, 10/08/22 15:10:00 EDT, Weight DosingStart: 81-12-5881Hinppvp Test Strips, See Instructions, 1 EA, 3, Glucose Test Strips, [employer] [facility] [employer] #37, Supply, 166, cm, 10/08/22 15:10:00 EDT, Height/Length Dosing, 57.8, kg, 10/08/22 15:10:00 EDT, Weight DosingStart: 04-90-0025Szihbjz, See Instructions, 100 lancet(s), 3, Lancets, [employer] [facility] [employer] #37, Supply, 166, cm, 10/08/22 15:10:00 EDT, Height/Length Dosing, 57.8, kg, 10/08/22 15:10:00 EDT, Weight DosingStart: 48-45-0661Gdgoruw Test Strips, See Instructions, 1 EA, 3, Glucose Test Strips, [employer] [facility] [employer] #37, Supply, 166, cm, 10/08/22 15:10:00 EDT, Height/Length Dosing, 57.8, kg, 10/08/22 15:10:00 EDT, Weight DosingStart: 03-96-8830Fyabzkt, See Instructions, 100 lancet(s), 3, Lancets, [employer] [facility] [employer] #37, Supply, 166, cm, 10/08/22 15:10:00 EDT, Height/Length Dosing, 57.8, kg, 10/08/22 15:10:00 EDT, Weight DosingStart: 53-72-3908Ocjdiou Test Strips, See Instructions, 1 EA, 3, Glucose Test Strips, [employer] [facility] [employer] #37, Supply, 166, cm, 10/08/22 15:10:00 EDT, Height/Length Dosing, 57.8, kg, 10/08/22 15:10:00 EDT, Weight DosingStart: 10-90-3863Hliqxkc, See Instructions, 100 lancet(s), 3, Lancets, [employer] [facility] [employer] #37, Supply, 166, cm, 10/08/22 15:10:00 EDT, Height/Length Dosing, 57.8, kg, 10/08/22 15:10:00 EDT, Weight DosingStart: 07-97-2940Iaicldy Test Strips, See Instructions, 1 EA, 3, Glucose Test Strips, [employer] [facility] [employer] #37, Supply, 166, cm, 10/08/22 15:10:00 EDT, Height/Length Dosing, 57.8, kg, 10/08/22 15:10:00 EDT, Weight DosingStart: 88-23-0931Zyccegd, See Instructions, 100 lancet(s), 3, Lancets, [employer] [facility] [employer] #37, Supply, 166, cm, 10/08/22 15:10:00 EDT, Height/Length Dosing, 57.8, kg, 10/08/22 15:10:00 EDT, Weight DosingStart: 89-09-6178Yalwhaw Test Strips, See Instructions, 1 EA, 3, Glucose Test Strips, [employer] [facility] [employer] #37, Supply, 166, cm, 10/08/22 15:10:00 EDT, Height/Length Dosing, 57.8, kg, 10/08/22 15:10:00 EDT, Weight DosingStart: 42-47-4914Khlrmgg, See Instructions, 100 lancet(s), 3, Lancets, [employer] [facility] [employer] #37, Supply, 166, cm, 10/08/22 15:10:00 EDT, Height/Length Dosing, 57.8, kg, 10/08/22 15:10:00 EDT, Weight DosingStart: 82-65-2901Hnpjqdh Test Strips, See Instructions, 1 EA, 3, Glucose Test Strips, [employer] [facility] [employer] #37, Supply, 166, cm, 10/08/22 15:10:00 EDT, Height/Length Dosing, 57.8, kg, 10/08/22 15:10:00 EDT, Weight DosingStart: 08-49-2674Yxqheth, See Instructions, 100 lancet(s), 3, Lancets, [employer] [facility] [employer] #37, Supply, 166, cm, 10/08/22 15:10:00 EDT, Height/Length Dosing, 57.8, kg, 10/08/22 15:10:00 EDT, Weight DosingStart: 84-85-1969Qxoefmv Test Strips, See Instructions, 1 EA, 3, Glucose Test Strips, [employer] #37, Supply, 166, cm, 10/08/22 15:10:00 EDT, Height/Length Dosing, 57.8, kg, 10/08/22 15:10:00 EDT, Weight DosingStart: 71-43-0343Mohfrdz, See Instructions, 100 lancet(s), 3, Lancets, [employer] #37, Supply, 166, cm, 10/08/22 15:10:00 EDT, Height/Length Dosing, 57.8, kg, 10/08/22 15:10:00 EDT, Weight DosingStart: 18-06-1593Ghjmqzk Test Strips, See Instructions, 1 EA, 3, Glucose Test Strips, [employer] #37, Supply, 166, cm, 10/08/22 15:10:00 EDT, Height/Length Dosing, 57.8, kg, 10/08/22 15:10:00 EDT, Weight DosingStart: 50-73-6532Xxnepnd, See Instructions, 100 lancet(s), 3, Lancets, [employer] #37, Supply, 166, cm, 10/08/22 15:10:00 EDT, Height/Length Dosing, 57.8, kg, 10/08/22 15:10:00 EDT, Weight DosingStart: 03-09-1910Wkvprrb Test Strips, See Instructions, 1 EA, 3, Glucose Test Strips, [facility] [employer] [facility] [employer] #37, Supply, 166, cm, 10/08/22 15:10:00 EDT, Height/Length Dosing, 57.8, kg, 10/08/22 15:10:00 EDT, Weight DosingStart: 40-25-3077Cvvmmtz, See Instructions, 100 lancet(s), 3, Lancets, [employer] #37, Supply, 166, cm, 10/08/22 15:10:00 EDT, Height/Length Dosing, 57.8, kg, 10/08/22 15:10:00 EDT, Weight DosingStart: 42-18-2977Qggfidz Test Strips, See Instructions, 1 EA, 3, Glucose Test Strips, [employer] #37, Supply, 166, cm, 10/08/22 15:10:00 EDT, Height/Length Dosing, 57.8, kg, 10/08/22 15:10:00 EDT, Weight DosingStart: 99-98-0792Zhcufha, See Instructions, 100 lancet(s), 3, Lancets, [employer] #37, Supply, 166, cm, 10/08/22 15:10:00 EDT, Height/Length Dosing, 57.8, kg, 10/08/22 15:10:00 EDT, Weight DosingStart: 97-28-3097Yit daily as directed & as neededStart: 03-26-2021 Functional Status PwqxOwsrmbghiuFzcbbgMeegvujw87-76-1905Ulxixeoywv StatusN/[facility] Primary Wwoz68-77-8754Jghgvyxjpd StatusN/[facility] Primary Hunq00-08-6478Aaveuvectv StatusN/[facility] Primary Niqm73-43-0348Jmbfqmpimr StatusN/[facility] Digestive Health 85-64-4289Hixptmegbq StatusN/[facility] Primary Ebfe32-03-5651 Functional StatusN/[facility] Clinical Notes 05-03-2022 to 01-28-2025 Note Date & TmmuNvglTycqyedw76-41-2892 History of Present illness Narrative* Abril Stone [...] nursing note reviewed. Exam conducted with a ivf embryologist present. Vitals: Estimated body mass index is 26.29 kg/m as calculated from the following: Height as of 11/29/22: 5' 5 . Weight as of this encounter: 158 lb. BP: 124/70 Patient's last menstrual period was 06/16/2024. Assessment/Plan ICD-10-CM 1. Third trimester ([facility]) Z34.93 POCT urinalysis dipstick manually resulted 2. 32 weeks gestation of ([facility]) Z3A.32 3. Thyroid disease E07.9 4. [...] of: Santosh Marshall DO documented in this encounterChildren's Mercy HospitalHomjyimzde22-01-3158 History of Present illness Narrative* Abril Stone [...] nursing note reviewed. Exam conducted with a ivf embryologist present. Vitals: Estimated body mass index is 26.71 kg/m as calculated from the following: Height as of 23: 5' 5 . Weight as of this encounter: 160 lb 8 oz. BP: 126/72 Patient's last menstrual period was 06/16/2024. Assessment/Plan ICD-10-CM 1. Third trimester ([facility]) Z34.93 POCT urinalysis dipstick manually resulted 2. 30 weeks gestation of ([facility] Z3A.30 Return OB: Patient presents [...] of: Santosh Marshall DO documented in this encounterChildren's Mercy HospitalWitaxefodt40-61-6490 History of Present illness Narrative* Daiana Villarreal [...] nursing note reviewed. Exam conducted with a ivf embryologist present. Vitals: Estimated body mass index is 25.38 kg/m as calculated from the following: Height as of 11/29/22: 5' 5 . Weight as of this encounter: 152 lb 8 oz. BP: 106/68 Patient's last menstrual period was 06/16/2024. ASSESSMENT & PLAN ICD-10-CM 1. Third trimester ([facility]) Z34.93 POCT urinalysis dipstick manually resulted 2. 28 weeks gestation of ([facility]) Z3A.28 Patient presents today for a routine obstetrics appointment. Patient is currently 28w2d with a Estimated Date of Delivery: 03/23/25. Patient had growth scan done prior to today's appointment. Patient will start NST/BPP at 32 weeks. Patient to return to clinic in 2 weeks. Documented by Daiana Villarreal LPN on behalf of: Santosh Marshall DO documented in this encounterChildren's Mercy HospitalYubpcxttjb66-06-3198 History of Present illness Narrative* LIS Man [...] ASSESSMENT & PLAN ICD-10-CM 1. Second trimester ([facility]) Z34.92 POCT urinalysis dipstick manually resulted 2. 25 weeks gestation of ([facility]) Z3A.25 3. Diabetes mellitus screening Z13.1 [...] of: LIS Man documented in this encounterNOMS Jlanyhpgvm14-53-0152 History of Present illness Narrative* Abril Stone, [...] nursing note reviewed. Exam conducted with a ivf embryologist present. Vitals: Estimated body mass index is 23.15 kg/m as calculated from the following: Height as of 11/29/22: 5' 5 . Weight as of this encounter: 139 lb 1.9 oz. BP: 110/72 Patient's last menstrual period was 06/16/2024. ASSESSMENT & PLAN ICD-10-CM 1. Second trimester ([facility]) Z34.92 POCT urinalysis dipstick manually resulted 2. 21 weeks gestation of ([facility]) Z3A.21 POCT urinalysis dipstick manually resulted [...] 4 weeks; She is followed closely per [facility] with history of hypothyroidism. Will obtain growth ultrasounds every 4 weeks and begin NST/BPP at 32 weeks. Documented by Abril Stone NP on behalf of: Santosh Marshall DO documented in this encounterChildren's Mercy HospitalJgifamwsms03-00-5888 History of Present illness Narrative* Nadira Salazar [...] risk Have you been seen here at [facility] in a previous ? Recent ER visits or hospitalizations? No Bring blood sugar log or meter with you today? (Please bring them with you for every visit at [facility]) NA Flu vaccine (Jan-May)? NA [...] Jacklyn Campos MD, FACOG (she/hers) Maternal- Medicine [facility] [address] [place] [address] This document was created with [employer] technology. Though I make every effort to review the dictation as it is transcribed, on occasion the spoken word can be misinterpreted by the technology leading to inappropriate words, phrases, or sentences. This note is addressed to the requesting provider as a consultation for clinical guidance. Specificmedical abbreviations are occasionally used and those are generally approved by the [place]?Board of?Obstetrics and?Gynecology?as well as?Lucy campos abbreviations. The above plan of care was based solely on the diagnoses for which a consultation was requested. ?More frequent testing may be indicated based on her other medical/obstetrical conditions. The management of other or medical conditions is beyond the scope of requested consultation and will c ontinue to be followed by the primary band singer or primary care provider. Note to patient: [...] opinion of the practitioner. documented in this encounterVan Wert County HospitalDimensions IT Infrastructure Solutions [id number] History of Present illness Narrative* LIS Man [...] 1. Second trimester ([facility]) Z34.92 2. 17 weeks gestation of ([facility]) Z3A.17 POCT urinalysis dipstick manually [...] behalf of: LIS Man documented in this encounterChildren's Mercy [id number] History of Present illness Narrative* Aliya JeronimoKALE [...] nursing note reviewed. Exam conducted with a ivf embryologist present. Vitals: Estimated body mass index is 22.1 kg/m as calculated from the following: Height as of 11/29/22: 5' 5 . Weight as of this encounter: 132 lb 12.8 oz. BP: 112/70 Patient's last menstrual period was 06/16/2024. ASSESSMENT & PLAN ICD-10-CM 1. 13 weeks gestation of ([facility]) Z3A.13 2. Second trimester ([facility]) Z34.92 3. Thyroid disease E07.9 [...] or undercooked meat, and stay away [facility]. Patient has been consulted regarding any further do's and don'tsof . Patient voiced understanding and all questions and concerns were answered. Pt has h/o IUGR, thyroid disease, pt being referred to [facility] for level II ultrasound. Pt should be taking 125mcg of levothyroxine. Pt voiced understanding. Pt to start baby aspirin. Orders Placed This Encounter Procedures Glucose tolerance, 1 hour Follow Up: Patient is to return in 4 weeks for routine OB appointment. Documented by Aliya Jeronimo LPN on behalf of: Santosh Marshall DO documented in this encounterChildren's Mercy [id number] History of Present illness Narrative* Carmita Tapia, ASSEMBLER EQUIPMENT - 08/17/2024 9:30 AM EDT Reason for [...] or undercooked meat, and stay away from [facility]. Patient has also been advised to not change litter boxes and eat 6 small meals a day. Patient has been consulted regarding the do's and don'ts ofpregnancy. Patient was given labs and all questions and concerns were answered. Patient was sent in Magnesium for headaches. Patient given [place] labs to do with initial labs along [...] by: Carmita Tapia LPN documented in this encounterChildren's Mercy [id number] NotePatient Education Endocrinology Hypothyroidism Hypothyroidism is when [...] Follow these instructions at home: ??? Take btqd-gos-dfllgwe and prescription medicines only as told by [...] Reviewed: 03/09/2022 Elsevier Patient Education ? 2023 [employer] Obstetrics and Gynecology Health Maintenance, Female Adopting a healthy lifestyle and getting preventive care are important in promoting health and wellness. Ask your health care provider about: ??? The right schedule for you to have regular tests and exams. ??? Things (more content not included)...[facility]04-17-2025 NotePatient Education ENT How to Perform a [...] cannot use soap and water, use hand kids activities coach. 2. Wash your device using the directions [...] provider. Document Revised: 08/24/2021 Document Reviewed: 08/24/2021 Specific Media Patient Education ? 2023 [employer]. Infectious Disease Sinus Infection, Adult A sinus [...] this diagnosed? Your s (more content not included)...[facility]09-23-20[facility] History of Present illness Narrative* Daiana Villarreal [...] Diagnosis Date BMI 23.0-23.9, adult Thyroid disease ([facility]/HCC) Well woman exam HISTORY PAST MEDICAL [...] nursing note reviewed. Exam conducted with a ivf embryologist present. Vitals: Estimated body mass index is [...] of: Santosh Marshall DO documented in this encounterChildren's Mercy [id number] Hospital Discharge instructions Patient Education 08/08/2023 16:25:47 [...] to help relieve pain. General instructions Take emuw-ncw-hsrasjz and prescription medicines only as told by [...] provider. Document Revised: 10/22/2020 Document Reviewed: 10/22/2020 Specific Media Patient Education 2022 [employer]. 08/08/2023 16:25:44 Hemorrhoids Hemorrhoids Hemorrhoids are swollen [...] 3 times a day. General instructions Take wijx-xtq-jojrdrg and prescription medicines only as told by [...] provider. Document Revised: 09/16/2021 Document Reviewed: 09/16/2021 Specific Media Patient Education 2022 [employer]. 08/08/2023 16:25:43 Urinary Tract Infection, Adult Urinary [...] Treatment for this condition includes: Antibiotic medicine. Bwqu-qca-idajhjd medicines to treat discomfort. Drinking enough water [...] Follow these instructions at home: Medicines Take ufjn-hqs-guyrezk and prescription medicines only as told by [...] provider. Document Revised: 10/17/2020 Document Reviewed: 10/17/2020 Specific Media Patient Education 2022 [employer]. 08/08/2023 16:25:41 Hypothyroidism Hypothyroidism Hypothyroidism is when [...] away. Follow these instructions at home: Take pvvr-mjl-vgjrhcc and prescription medicines only as told by [...] provider. Document Revised: 03/09/2022 Document Reviewed: 03/09/2022 Specific Media Patient Education 2022 [employer]. [facility] 05-20-2024 Evaluation + Plan note Future Scheduled Tests Laboratory* UA with Cult Rflx 08/08/23 * CBC w/ Auto Diff 02/08/24 * Comprehensive Metabolic Panel 02/08/24 * Thyroid Stimulating Hormone 02/08/24 * Thyroid Stimulating Hormone 05/16/23 * Free T4 02/08/24 * Free T4 05/16/23 [facility] 12-20-2023 Hospital Discharge instructions [...] including vitamins, herbs, eye drops, creams, and cbqe-tdh-vkuhckx medicines. ?Whether you are or may be [...] provider. Document Revised: 11/18/2021 Document Reviewed: 10/10/2020 Specific Media Patient Education 2022 [employer]. 03/09/2023 08:08:48 Urinary Tract Infection, Adult Urinary [...] Treatment for this condition includes: Antibiotic medicine. Wkzq-wii-wdznprx medicines to treat discomfort. Drinking enough water [...] Follow these instructions at home: Medicines Take siwv-qvc-jtcudvn and prescription medicines only as told by [...] provider. Document Revised: 10/17/2020 Document Reviewed: 10/17/2020 Specific Media Patient Education 2022 [employer]. 03/09/2023 08:08:46 Hypothyroidism Hypothyroidism Hypothyroidism is when [...] away. Follow these instructions at home: Take ztnw-slt-gkxqhcd and prescription medicines only as told by [...] provider. Document Revised: 03/09/2022 Document Reviewed: 03/09/2022 [employer] Patient Education 2022 [employer]. Follow Up Care 03/07/2023 12:06:45 With:Ya Wang FAM, [facility] Address: [address], [address] [place] [id number] Business (1) When:05/25/2023 Comments:for f/u [facility] 12-04-2023 Hospital Discharge instructions [...] Follow these instructions at home: Medicines Take vncd-xps-gpyrghx and prescription medicines only as told by [...] provider. Document Revised: 10/17/2020 Document Reviewed: 10/17/2020 Specific Media Patient Education 2022 [employer]. Follow Up Care 02/21/2023 08:19:47 With:Ya Wang FAM, MED Address: [address] [place], [place] [id number] Business (1) When:05/25/2023 Comments:for f/u [facility] 09-12-2023 Hospital Discharge instructions [...] Bulgur wheat. Millet. Quinoa. Bran muffins. Popcorn. Powers wafer crackers. Meats and other proteins Liberty beans, kidney beans, and díaz beans. Soybeans. [...] Cream cheese. Sour cream. Fats and oils [place]. Beverages Soft drinks. Other foods Cakes and [...] Document Reviewed: 07/10/2020 Elsevier Patient Education 2022 [employer]. Follow Up Care 11/11/2022 12:10:41 With:Daniel Gray CNP Address: When:2 weeks Comments:Following EGD/Colonoscopy. [facility] 08-24-2023 Hospital Discharge instructions [...] per serving. Talk with a diet and antenna specialist (dietitian) if you have questions about [...] Bulgur wheat. Millet. Quinoa. Bran muffins. Popcorn. Powers wafer crackers. Meats and other proteins Liberty, kidney, and díaz beans. Soybeans. Split peas. [...] Cream cheese. Sour cream. Fats and oils [place]. Beverages Soft drinks. Other foods Cakes and [...] 03/07/2006 Document Revised: 01/09/2018 Document Reviewed: 01/09/2018 Specific Media Patient Education 2020 [employer]. 11/11/2022 01:00:54 Hemorrhoids Hemorrhoids Hemorrhoids are swollen [...] 3 times a day. General instructions Take qhaz-xvn-qujarsy and prescription medicines only as told by [...] provider. Document Revised: 09/16/2021 Document Reviewed: 09/16/2021 Specific Media Patient Education 2022 [employer]. Follow Up Care 11/08/2022 14:59:04 With:Ya Wang FAM, [facility] Address: [address] [place] [address] [facility] (1) When:Within 3 Month(s) Comments:3 mo f/u [facility] 02-13-2023 Hospital Discharge instructions [...] away. Follow these instructions at home: Take xnvq-hdb-hepmryc and prescription medicines only as told by [...] 03/07/2006 Document Revised: 02/17/2018 Document Reviewed: 02/15/2018 Specific Media Patient Education [email or web address]. Follow Up Care 04/05/2022 12:35:49 With:Ritu Desai CNP Address: [address] [place] [phone] When:1 year Comments:or sooner if needed. [facility] Evaluation + Plan note No data available for this section [facility] Evaluation + Plan note Future Appointments Appointment Date:11/30/2022 12:00:00 PM Scheduled Provider:Daniel Gray CNP [facility] Appointment Type:BAD New Patient Appointment Date:04/04/2023 01:00:00 PM Scheduled Provider:Ya Wang Location:[facility] Appointment Type: Open Future Scheduled Tests Laboratory* TSH With T4fr Reflex 10/08/22 [facility] Evaluation + Plan note Future Appointments Appointment Date:04/04/2023 01:00:00 PM Scheduled Provider:Ya Wang Location:[facility] Appointment Type:FM Open Future Scheduled Tests Laboratory* TSH With T4fr Reflex 10/08/22 [facility] Evaluation + Plan note Future Appointments Appointment Date:07/25/2023 10:00:00 AM Scheduled Provider:Ya Wang Location:[facility] Appointment Type:FM Open Future Scheduled Tests Laboratory* T3 Free 02/21/23 * Thyroid Stimulating Hormone 02/21/23 * Free T4 02/21/23 [facility] Evaluation + Plan note Future Appointments Appointment Date:07/25/2023 10:00:00 AM Scheduled Provider:Ya Wang Location:[facility] Appointment Type:FM Open Diagnostic Tests Pending * Urine Culture 02/21/23 Future Scheduled Tests Laboratory* T3 Free 02/21/23 * Thyroid Stimulating Hormone 02/21/23 * Free T4 [facility]23 [facility] Appointment Date:07/25/2023 10:00:00 AM Scheduled Provider:[facility] Type:FM Open Future Scheduled Tests Laboratory* T3 Free 02/21/23 * Thyroid Stimulating Hormone 02/21/23 * Free T4 02/21/23 Radiology* US Retroperitoneal Complete 03/09/23 [facility] Evaluation + Plan note Future Appointments Appointment Date:07/25/2023 10:00:00 AM Scheduled Provider:Ya Wang [facility] Appointment Type:FM Open Diagnostic Tests Pending * Urine Culture 03/09/23 Future Scheduled Tests Laboratory* T3 Free 02/21/23 * Thyroid Stimulating Hormone 02/21/23 * Free T4 02/21/23 Radiology* US Retroperitoneal Complete 03/09/23 [facility] Future Appointments Appointment Date:07/12/2023 09:30:00 AM Scheduled Provider:OPAL LUZ PA-C Location:[facility] Appointment Type:URO New Patient Appointment Date:07/25/2023 10:00:00 AM Scheduled Provider:Ya Wang [facility] Appointment Type:FM Open Diagnostic Tests Pending * T3 Free 03/22/23 [facility] Future Appointments Appointment Date:07/12/2023 09:30:00 AM Scheduled Provider:OPAL LUZ PA-C Location:[facility] Appointment Type:URO New Patient Appointment Date:07/25/2023 10:00:00 AM Scheduled Provider:Ya Wang [facility] Appointment Type:FM Open [facility] Future Appointments Appointment Date:07/25/2023 10:00:00 AM Scheduled Provider:Ya Wang Location:[facility] Appointment Type:FM Open Future Scheduled Tests Laboratory* Thyroid Stimulating Hormone 05/16/23 * Free T4 05/16/23 [facility] evaluation + Plan note Future Scheduled Tests Laboratory* CBC w/ Auto Diff 02/08/24 * Comprehensive Metabolic Panel 02/08/24 * Thyroid Stimulating Hormone 02/08/24 * Free T4 02/08/24 [facility] Future Appointments Appointment Date:07/09/2024 08:00:00 AM Scheduled Provider:Marta Rivas Location:[facility] Appointment Type:FM New Patient - Adult Future Scheduled Tests Laboratory* CBC w/ Auto Diff 02/08/24 * Comprehensive Metabolic Panel 02/08/24 * Thyroid Stimulating Hormone 02/08/24 * Free T4 02/08/24 [facility] Evaluation note* Diagnosis Well woman exam with routine gynecological exam Routine gynecological examination documented in this encounter [facility]Evaluation [facility]* Diagnosis Family history of autism Family history of psychiatric condition [facility] Diagnosis Missed menses , unspecified gestational age Encounter for supervision of normal first in first trimester Nonintractable headache, unspecified chronicity pattern, unspecified headache type documented in this encounter [facility] HealthcareEvaluation note* Diagnosis 13 weeks gestation of (HHS-HCC) Second trimester (HHS-HCC) state, incidental Thyroid disease Unspecified disorder of thyroid History of prior with IUGR Diabetes mellitus screening Screening for diabetes mellitus documented in this encounter [facility]* Diagnosis Thyroid disease affecting - Primary History of prior with IUGR [facility] Diagnosis Second trimester (HHS-HCC) state, incidental 17 weeks gestation of (HHS-HCC) documented in this encounter [facility]Evaluation note* Diagnosis 20 weeks gestation [...] rupture of membranes [facility]* Diagnosis 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 trimester- Primary History of prior with IUGR History of premature rupture of membranes documented [facility]* Diagnosis Hypothyroidism, unspecified type- Primary Second trimester (HHS-HCC) state, incidental 21 weeks gestation of (HHS-HCC) Vaginal discharge Leukorrhea, not specified as infective STD exposure documented in this encounter [facility]* Diagnosis Size of fetus inconsistent with dates in second trimester (HHS-HCC)- Primary Second trimester (HHS-HCC) state, incidental 25 weeks gestation of (HHS-HCC) Diabetes mellitus screening Screening for diabetes mellitus documented in this encounter [facility] HealthcareEvaluation note* Diagnosis Third trimester (HHS-HCC) state, incidental 28 weeks gestation of (HHS-HCC) documented in this encounter [facility] note* Diagnosis Third trimester (HHS-HCC) state, incidental 30 weeks gestation of (HHS-HCC) documented in this encounter [facility]* Diagnosis Third trimester (HHS-HCC) state, incidental 32 weeks gestation of (HHS-HCC) Thyroid disease Unspecified disorder of thyroid History of prior with IUGR Hypothyroidism, unspecified type documented [facility] No data available for this section [facility]ructionsNot on filedocumented in this encounter [facility] filedocumented in this encounter [facility]ructionsNot on filedocumented in this encounter [facility]ructionsNot on filedocumented in this encounter [facility] No data available for this section [facility] Summary Purpose Family [...] InactivatedComments04/21/2021 7:00 PM2 1:57 PMDate Activated Date UecdqfuovdrBwoiirwe23/14/2021 5:01 PM03/26/2021 7:46 PMDate ActivatedDate InactivatedComments05/30/2021 7:15 AM06/01/2021 2:55 PMDate ActivatedDate InactivatedComments05/12/2021 1:10 PM2 2:16 PMDate ActivatedDate InactivatedComments04/21/2021 7:00 PM2 1:57 PMDate ActivatedDate OxwdscoiloiNievittw06/14/2021 5:01 PM03/26/2021 7:46 PM Additional Source Comments INFORMATION SOURCE (unrecogn ized section and content) DATE CREATED AUTHOR 11/15/2021 [facility] DATE CREATED AUTHOR AUTHOR'S ORGANIZ ATION 09/09/2023 [facility] DATE CREATED AUTHOR AUTHOR'S ORGANIZ ATION 05/21/2024 [facility] DATE CREATED AUTHOR AUTHOR'S ORGANIZ ATION 07/06/2024 [facility] DATE CREATED AUTHOR AUTHOR'S ORGANIZ ATION 07/10/2024 [facility] DATE CREATED AUTHOR AUTHOR'S ORGANIZ ATION 07/13/2024 [facility] DATE CREATED AUTHOR AUTHOR'S ORGANIZ ATION 11/21/2024 [facility] DATE CREATED AUTHOR AUTHOR'S ORGANIZ ATION 12/12/2024 [facility] DATE CREATED AUTHOR AUTHOR'S ORGANIZ ATION 01/28/2025 [facility] EPIC Patient Care team informatio n (unrecognized section and content) Team MemberRelationshipSpecialtyStart DateEnd Date Staci White MD [address] [place] [address] PCP - GeneralInternal Medicine11/29/22Team MemberRelationshipSpecialtyStart Date End Date Staci White MD [address] [place] [address] PCP - GeneralInternal Medicine11/29/22Team MemberRelationshipSpecialtyStart Date End Date Staci White MD [address] [place] [address] PCP - GeneralInternal Medicine11/29/22Team MemberRelationshipSpecialtyStart Date End Date [place] [address] Attending ProviderMedical Clinical Genetics05/14/24Team MemberRelationship SpecialtyStart DateEnd Date Staci White MD [address] [place] [address] PCP - GeneralInternal Medicine11/29/22am MemberRelationshipSpecialtyStart Date End Date Staci White MD [address] [place] [address] PCP - GeneralInternal Medicine11/29/22am MemberRelationshipSpecialtyStart Date End Date Staci White MD [address] [place] [address] PCP - GeneralInternal Medicine11/29/22am MemberRelationshipSpecialtyStart Date End Date Staci White MD [address] [place] [address] PCP - GeneralInternal Medicine11/29/22am MemberRelationshipSpecialtyStart Date End Date Staci White MD PCP - GeneralInternal Medicine04/07/21am MemberRelationshipSpecialtyStart Date End Date Staci White MD [address] [place] [address] PCP - GeneralInternal Medicine11/29/22am MemberRelationshipSpecialtyStart Date End Date Staci White MD PCP - GeneralInternal Medicine04/07/21am MemberRelationshipSpecialtyStart Date End Date Staci White MD PCP - GeneralInternal Medicine04/07/21Te MemberRelationshipSpecialtyStart Date End Date Staci White MD [address] [place] [address] PCP - GeneralUnited [facility]11/29/22Te MemberRelationshipSpecialtyStart Date End Date Staci White MD [address] [place] [address] PCP - GeneralInternal [facility]11/29/22Te MemberRelationshipSpecialtyStart Date End Date Staci White MD [address] [place] [address] [facility]11/29/22Te MemberRelationshipSpecialtyStart Date End Date Staci White MD [address] [place] [address] [facility]11/29/22Te MemberRelationshipSpecialtyStart Date End Date Staci White MD [address] [place] [address] PCP - GeneralUnited [facility] Clinic[facility]11/29/22 Reason for Visit (unrecogniz ed section and [...] BE BASED ON THE PRIMARY CLINICAL RECORDS. [facility] [employer] [facility]. provides no warranty or guarantee of the accuracy or completeness of information in this document.
--- OUTSIDE RECORDS SUMMARY | 2025-02-21 02:36 | XMS_ITS | Clinical Summary ---
Author Organization [facility] Address [address] [place] [address] Care Team Providers Care Fermentation Manager Name Role Phone Carrillo White MD Primary Care Provider [phone] Allergies No known active allergies Medications MedicationSigDispense QuantityRefillsLast FilledStart DateEnd DateStatus levothyroxine (Synthroid) 125 MCG tablet Indications:Thyroid diseaseTake 1 tablet (125 mcg) by mouth in the morning. Take before meals. 30 tablet 1106//894657/6Active MV-Min-Fe Fum-FA-DHA ( 1 PO) Take by mouthActive Active Problems ProblemNoted DateDiagnosed DateThyroid jkcpwlb4201/28/2025History of prior with IUGR ehndejx2001/28/2025Estimated Date of DeliveryComments Yes03/23/2025ased on last menstrual period of 06/16/2024 Encounters DateTypeDepartmentCare QemfKxeybgywrqc65/02/2025linisync Result Encounter [facility] External Department Unsolicited Shauna Marshall, DO 02/18/2025Telephone [facility] FUENTES [address] [place] [address] [place] [address] Ann Ma MA 02/12/2025linisync Result Encounter NOMS External Department Unsolicited Shauna Marshall, DO 5Clinisync Result Encounter [facility]OMS External Department Unsolicited Shauna Marshall, DO 5Clinisync Result Encounter NOMS External Department Unsolicited Shauna Marshall DO 5Clinisync Result Encounter NOMS External Department Unsolicited Abril Stone NP 02/04/2025 8:00 AM ESTAncillary Procedure [facility] [place] [address] Thyroid disease; History of prior with IUGR ; Hypothyroidism, unspecified type01/28/2025 8:30 AM ESTRoutine [facility] [place] [address] Shauna Marshall, Third trimester ([facility]); 32 weeks gestation of ([facility]); Thyroid disease; History of prior with IUGR ; Hypothyroidism, unspecified type5Bamboo flowsheet [facility] Giles [facility] [place] [address] Shauna Marshall DO 01/14/2025 8:30 AM EDTRoutine [facility] [place] [address] Shauna Marshall, Third trimester ([facility]); 30 weeks gestation of ([facility])5Bamboo flowsheet [facility] [place] [address] Shauna Marshall, 12/31/2024 11:00 AM EDTRoutine [facility] [place] [address] 449-517 Shauna Marshall, Third trimester ([facility]); 28 weeks gestation of ([facility])12/31/2024 10:30 AM EDTAncillary Procedure [facility] [place] [address] Size of fetus inconsistent with dates in second trimester ([facility])12/12/2024 Abstract [facility] Giles [facility] [place] [address] Shauna Marshall, DO 5Clinisync Result Encounter NOMS External Department Unsolicited Erum Guidry PA 12/11/2024Telephone [facility] [address] [facility] [place] [address] Erum Guidry PA 12/11/2024linisync Result Encounter [facility]OMS External Department Unsolicited Erum Guidry PA 12/10/2024 10:00 AM EDTRoutine [facility] [place] [facility] [address] [facility] [place] [address] Erum Guidry PA Size of fetus inconsistent with dates in second trimester ([facility]) (Primary Dx); Second trimester ([facility]); 25 weeks gestation of ([facility]); Diabetes mellitus bepadqvhl26/22/2025amboo flowsheet [facility] [place] [facility] [address] [facility] [place] [address] Erum Guidry PA 11/28/2024bstract [facility] [place] [facility] [address] [facility] [place] [address] Shauna Marshall, DO 11/27/2024bstract [facility] [place] [facility] [address] [facility] [place] [address] Shauna Marshall, DO 5Abstract [facility] [address] [facility] [place] [address] Ann Ma MA from Last 3 Months [...] ValueDate RecordedSex Assigned at BirthNot on fileLegal DocOpiehg65/15/2023 10:14 PM EDTGender IdentityNot on fileSexual OrientationNot on file Last Filed Vital Signs Vital SignReadingTime TakenCommentsBlood Kscmpeeq748/7001/28/2025 8:39 AM EST Pulse--Temperature--Respiratory Rate--Oxygen Saturation--Inhaled Oxygen Concentration--Vewvsm10.7 kg (158 lb)01/28/2025 8:39 AM CXRMmbjin657.1 cm (5' 5 )11/29/2022 3:23 PM EDTBody Mass Index26.29011/29/2022 3:23 PM EDT Plan of Treatment DateTypeDepartmentCare Team (Latest Contact Info)Hajvliutpwb76/04/2025 11:00 AM ESTRoutine [facility] [address] [facility] [place] [address] Shauna Marshall DO [address] [facility] [address] [place], [place] [address] Procedures Procedure NamePriorityDate/TimeAssociated DiagnosisCommentsUS OB BPP W NON-DDJQBU3602/19/2025 2:15 PM EST US OB BPP W NON-USIJZB7602/12/2025 8:46 PM EST ALL CBC WITH AUTO HOODVrzflvv10/25/2025 4:15 PM EST [facility] DRUG SCREEN RAPID (URINE)Qttgcvo2802/12/2025 4:00 PM EST TB UA (CLEAN/CATCH) CLERICAL ADMINISTRATOR/MICRO IF IND.Tpbpjjb1602/12/2025 4:00 PM EST US OB BPP W NON-ASSUDY8402/05/2025 7:47 PM EST ALL THYROID STIM NQGSUAMKmmjmdx62/18/2025 2:42 PM EST US OB FOLLOW UP TRANSABDOMINAL WXWPMRQKNtieeai81/17/2025 8:26 AM EST Thyroid disease History of prior with IUGR Hypothyroidism, unspecified type POCT URINALYSIS KDIHFYBSYdkuwkr95/10/2025 8:40 AM EST Third trimester ([facility]) POCT URINALYSIS QSNETZGHJylddch13/27/2025 8:40 AM EDT Third trimester ([facility]) POCT URINALYSIS OPENELERKggvscm83/13/2025 11:29 AM EDT Third trimester ([facility]) US OB FOLLOW UP TRANSABDOMINAL VQNJZWSTCqnpakw12/13/2025 10:55 AM EDT Size of fetus inconsistent with dates in second trimester ([facility]) GLUCOSE TOLERANCE 3 NWSMKbtfleo23/24/2025 8:42 AM EDT ALL THYROID STIM LLKFNSNRagozxl46/23/2025 9:34 AM EDT GLUCOSE 1 RLYDNbzkzri07/23/2025 9:34 AM EDT ALL CBC WITH AUTO SFKYNegftgx75/23/2025 9:34 AM EDT POCT URINALYSIS UOEQDROOSyshrxc62/22/2025 10:28 AM EDT Second trimester ([facility]) from Last 3 Months Results * US OB BPP W NON-STRESS (02/19/2025 2:15 PM EST) Only the most recent of3 resultswithin the time period is included. Anatomical RegionLateralityModalityOtherSpecimen (Source)Anatomical Location / LateralityCollection Method / VolumeCollection TimeReceived Time02/19/2025 2:15 PM EST Narrative 02/19/2025 2:18 PM EST [facility] ?[address] ? [place], [facility] ? Ultrasound Report ? Signed ? Patient: BROECKEL,YANA R ?MR#: [id number] ?? : 2000 ?Acct:[id number] ?? Age/Sex: 25 / F ?ADM Date: 02/19/25 ?? Loc: [facility] ??252-1 ? Attending Dr: Shauna Marshall D.O. ? Ordering Physician: Shauna Marshall D.O. ?? Date of Service: 02/19/25 ?? Procedure(s): US OB BPP w non-stress ?? Accession Number(s): [id number] ? cc: Shauna Marshall D.O.; Physician,Non-Staff M.DGenny ? [facility] ? [address] ? [place] [address] ? Patient Name: ?? YANA PAYNE ? MRN: [facility]:[id number] ? date: 2000 ?Sex: F ?? Assigned Patient Location: [facility] ?? Current Patient Location: [facility] ?? Accession/Order Number: [id number] ?? Exam Date: 02/19/2025 ??13:08 ?Report Date: 02/19/2025 ??14:15 ? At the request of: ?? SHAUNA ??JOANNA ??DO ? Procedure: ??US OB BPP w non-stress ? Biophysical profile. ? Reason for exam: Thyroid disease ? COMPARISON: BPP 02/12/2025 ? TECHNIQUE: Transabdominal imaging of the gravid uterus was obtained. ? FINDINGS: The orthopedic nurse practitioner reports a BPP of 8 out of 8. ??CALVIN is normal at 24.96 ?? cm. ?? heart rate 153 bpm. ? US/US OB BPP w non-stress ?? IMPRESSION: BPP 8 out of 8. ? Borderline polyhydramnios. ? Impression dictated by: Hermelindo [place] Jr., D.O. ??02/19/2025 2:15 PM ? Dictation Location: [place] [address] ? Electronically authenticated by: [id number] ??Y ?? Date: 02/19/2025 ??14:15 ? Dictated By: ?Hermelindo [place] M.D. ? Signed By: ?02/19/25 1418 ? DD/ ? TD/TT: ? Warehouse Logistics Manager: Procedure Note Radiology, Radiologist, - 02/19/2025 [place] [address] Ultrasound Report Signed Patient: YANA PAYNE RMR#: [id number] : 2000Acct:[id number] Age/Sex: 25 / FADM Date: 02/19/25 Loc: [facility] 252-[address]: Shauna Marshall D.O. Ordering Physician: Shauna Marshall D.O. Date of Service: 02/19/25 Procedure(s): US OB BPP w non-stress Accession Number(s): [id number] cc: Shauna Marshall D.O.; Physician,Non-Staff M.DGenny The [place] [id number] Patient Name: YANA PAYNE MRN: [facility]:[id number] date: 2000 Sex: F Assigned Patient Location: [facility] Current Patient Location: [facility] Accession/Order Number: [id number] Exam Date: 02/19/2025 13:08 Report Date: 02/19/2025 14:15 At the request of: SHAUNA MARSHALL DO Procedure: US OB BPP w non-stress Biophysical profile. Reason for exam: Thyroid disease COMPARISON: BPP 02/12/2025 TECHNIQUE: Transabdominal imaging of the gravid uterus was obtained. FINDINGS: The orthopedic nurse practitioner reports a BPP of 8 out of 8. CALVIN is normal at24.96 cm. heart rate 153 bpm. US/US OB BPP w non-stress IMPRESSION: BPP 8 out of 8. Borderline polyhydramnios. Impression dictated by: Hermelindo [place] Jr., D.O. 02/19/2025 2:15 PM Dictation Location: [place] [address] Electronically authenticated by: [id number] Y Date: 4:15 Dictated By: Hermelindo [place] M.D. Signed By:02/19/25 1418 DD/ 14 TD/TT: Warehouse Logistics Manager: Authorizing ProviderResult TypeResult StatusCorey Joanna DOCLINISYNC IMAGINGFinal [...] - 35.2 g/dLTBHTBH RDW13.011.0 - 15.0 %TBHTBH [id number] - 450 10 3/uLTBHTBH MPV11.39.5 - 13.5 [...] Performing OrganizationAddressCity/State/ZIP CodePhone Number [facility]NC TB * (ABNORMAL) [facility] UA (CLEAN/CATCH) CLERICAL ADMINISTRATOR/MICRO IF IND. (02/12/2025 4:00 PM EST) ComponentValueRef [...] Joanna DOCLINISYNCFinal Result Performing OrganizationAddressCity/State/ZIP CodePhone Number [facility] * [facility] DRUG SCREEN RAPID (URINE) (02/12/2025 [...] 4:00 PM EST02/12/2025 4:55 PM EST Narrative CLINISYND - 02/12/2025 5:25 PM EST Authorizing ProviderResult TypeResult StatusCorey Joanna DOCLINISYNCFinal Result Performing OrganizationAddressCity/State/ZIP CodePhone Number [facility] * ALL THYROID STIM HORMONE (02/05/2025 [...] StatusKristina Bertha NPCLINISYNCFinal ResultPerforming OrganizationAddressCity/State/ZIP CodePhone Number [facility] * US OB follow up transabdominal [...] Padilla MD Authorizing ProviderResult TypeResult StatusAbril Stone NPIM OB US PROCEDURESFinal Result * POCT urinalysis dipstick manually resulted (01/28/2025 8:40 AM EST) Only the most recent of4 resultswithin the time period is included. ComponentValueRef RangeTest MethodAnalysis TimePerformed AtPathologist Signature Color, UAYellowClarity, UAClearGlucose, UANegativeNegative - 1999(110) ++++ mg/dLBilirubin, UANegativeNegative - 4(70) +++ mg/dLKetones, UANegativeNegative - 160(16) ++++ mg/dLSpec Grav, UA1.0201 - 1.03Blood, UANegativeNegative - 50 Cedric/mcLpH, UA6.05 - 9Protein, UANegativeNegative - 2000(20) ++++ mg/dL Urobilinogen, UA1.00.2 - 12 mg/dLLeukocytes, UANegativeNegative - 500+++ Ayana/mcL Nitrite, UANegativeNegative - PositiveSpecimen (Source)Anatomical Location / LateralityCollection Method / VolumeCollection TimeReceived XwezLdsgd46/10/2025 8:40 AM EST Narrative Authorizing ProviderResult TypeResult [...] 12:31 PM EDT Authorizing ProviderResult TypeResult StatusAmy Brea PALAB BLOOD ORDERABLES Final ResultPerforming OrganizationAddressCity/State/ZIP CodePhone Number [facility] * (ABNORMAL) GLUCOSE 1 HOUR (12/11/2024 9:34 AM EDT)ComponentValueRef RangeTest MethodAnalysis TimePerformed AtPathologist SignatureGLUCOSE 1 TKVS694(H)<130 mg/dLTBHSpecimen (Source)Anatomical Location / LateralityCollection Method / VolumeCollection TimeReceived Time12/11/2024 9:34 AM EDT12/11/2024 10:16 AM EDT Narrative CLINISYNC - 12/11/2024 10:57 AM EDT Authorizing ProviderResult TypeResult StatusAmy Brea PALAB BLOOD ORDERABLES Final ResultPerforming OrganizationAddressCity/State/ZIP CodePhone Number [facility] from Last 3 Months Insurance Care Teams Team MemberRelationshipSpecialtyStart DateEnd Date Carrillo White MD [address] [place] [address] PCP - GeneralInternal Medicine11/29/22
--- OUTSIDE RECORDS SUMMARY | 2025-02-21 02:36 | XMS_ITS | Clinical Summary ---
Author Organization [facility] Address [facility] [address] [place] [address] Care Team Providers Care Vending Machine Coin Collector Name Role Phone Carrillo White MD Primary Care Provider [phone] Allergies No known active allergies Medications MedicationSigDispense QuantityRefillsLast FilledStart DateEnd DateStatus PNV no.95/ferrous fum/folic ac ( ORAL) Take by mouth in the morning.Active FREESTYLE LITE METER kit See Admin Instructions.03/26/2021ctive freestyle 28 gauge lancets Use daily as directed & as zaevkk2603/26/2021ctive acetaminophen (TYLENOL EXTRA STRENGTH) 500 mg tablet [...] the morning.Active Active Problems ProblemNoted DateDiagnosed DateLow-lying hbqkmuww86/18/2025History of prior with IUGR sgvhmnv8811/05/2024Family history of tvvhtc9211/05/2024History of gestational diabetes in prior , currently vhqwcnem66/18/2025History of prior with short cervix, currently dxefadpq89/18/2025History of premature rupture of llxevpdmk45/18/2025Hypothyroidism affecting dnfsmtrmu69/18/2021 Overview (05/19/2021): 03/03/21 TSH 1.91 04/11 TSH not completed () On levothyroxine 125mcg Estimated Date of CxlvefycYjhlsrvpFbk33/03/2026ased on last menstrual period of 06/16/2024 Resolved Problems ProblemNoted DateDiagnosed DateResolved DatePreterm premature rupture of edvobeupa93Diet controlled gestational diabetes mellitus (GDM) in third eazvyxiyo25Short cervix during in third sfcgnmycu35/ Overview (05/19/2021): Vaginal progesterone ANCS 03/03/21 and 03/04/21, rescue 05/12/21 and 05/13/21. laborPreterm uterine contractions in third trimester, gjlotosarm80Pregnancy affected by growth kfbagdfqhpw50 Overview (05/19/2021): 05/05/21: EFW 3%, AC 8%, nl DVP. Normal dopplers Encounters DateTypeDepartmentCare XvjiCtesbfwtjpz54/23/2025 2:15 PM EDT - 12/11/2024 11:59 PM EDTHospital Encounter [facility] [address] [place] [address] 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 trimester; History of prior with IUGR ; History of premature rupture of membranes Discharge Disposition: Home12/11/20241589Nolnrc25/09/2025 3:15 PM EDT - 11/27/2024 11:59 PM EDTHospital Encounter [facility] - [facility]ound [address] [place] [address] 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 trimester; History of prior with IUGR ; History of premature rupture of membranes Discharge Disposition: Home11/27/2024Travelfrom Last 3 Months Immunizations ImmunizationAdministration DatesNext NkwBclw9705/26/2021 Family History Medical HistoryRelationNameCommentsDiabetesBrotherJordanDiabetesFather HypertensionFatherColon cancerMaternal GrandmotherEllenDiabetesMaternal GrandmotherEllenHypertensionMaternal GrandmotherEllenDepressionMotherTina DiabetesMotherTinaMental illnessMotherTinaStomach cancerMotherTinaBreast cancer Paternal Aunt 1SueMiscarriages / StillbirthsPaternal Aunt 2AuntAsthmaPaternal GrandfatherRichardDiabetesPaternal GrandfatherRichardHypertensionPaternal GrandfatherRichardBreast cancerPaternal GrandmotherMarilynColon cancerPaternal GrandmotherMarilynRelationNameStatusCommentsBrotherJordanFatherMaternal GrandmotherEllenMotherTinaDeceasedPaternal Aunt 1SuePaternal Aunt 2AuntPaternal GrandfatherRichardPaternal GrandmotherMarilyn Social History Tobacco UseTypesPacks/DayYears UsedDateSmoking Tobacco: NeverSmokeless Tobacco: NeverAlcohol UseStandard Drinks/WeekCommentsNot Currently0 (1 standard drink = 0.6 oz pure alcohol)Falls Depression ScaleAnswerDate Recorded Falls Depression Scale Wmpgh620The thought of harming myself has occurred to me.Never06/04/2021Hunger ScreeningAnswerDate Recorded Within the past 12 months we worried whether our food would run out before we got money to buy more.Never True11/05/2024Within the past 12 months the food we bought just didn't last and we didn't have money to get more.Never True 11/05/2024Estimated Date of MfzenirhLawnkpdfNov99/03/2026ased on last menstrual period of 06/16/2024Sex and Gender InformationValueDate RecordedSex Assigned at BirthNot on fileLegal KklOghuwl68/15/2021 10:50 AM EDTGender IdentityNot on fileSexual OrientationNot on file Last Filed Vital Signs Vital SignReadingTime TakenCommentsBlood Xjptnrdb57/5808 11:51 AM EDT Vhvst2411/ 11:51 AM DEPLpxlwjtfaom23.9 ??C (98.4 ??F)06/04/2021 11:19 AM EDTRespiratory Bfsb435206/01/2021 9:10 AM EDTOxygen Ldbmmouxon86%05/19/2021 10:27 AM ESTInhaled Oxygen Concentration--Zldfcm28.8 kg (138 lb 6.4 oz)11/05/2024 11:51 AM XIXPpegaq825.1 cm (5' 5 )11/05/2024 11:51 AM EDTBody Mass Index23.03 11/05/2024 11:51 AM EDT Plan of Treatment Health MaintenanceDue DateLast DoneCommentsPap Smear2019Depression Afxddulfc88/Influenza Eresgth29RSV ( or age 60+ yrs) (1 - Risk 1-dose series)01/26/2025dult BMI Screening Tobacco Xoaqmfhul92DTaP,Tdap and Td Vaccines (8 - Td or Tdap)/10/2021, 06/22/2010, 10/16/2003, Additional history exists Medical Devices Not on file Procedures Procedure NamePriorityDate/TimeAssociated DiagnosisCommentsUS [facility] OB FOLLOW-UP, 1 FAESZSrfyoyu56/23/2025 3:04 PM EDT 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 trimester History of prior with IUGR History of premature rupture of membranes US [facility] OB LRVCUNTEFRAGAewagkp61/09/2025 3:49 PM EDT 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 trimester History of prior with IUGR History of premature rupture of membranes from Last 3 Months Results * US [facility] OB FOLLOW-UP, 1 FETUS (12/11/2024 3:04 PM EDT) Only the most recent of2 resultswithin the time period is included. Anatomical RegionLateralityModalityOB-GYNUltrasoundSpecimen (Source)Anatomical Location / LateralityCollection Method / VolumeCollection TimeReceived Time 12/11/2024 2:27 PM EDT Narrative 12/12/2024 1:35 PM EDT NAME: ??KERRY MILLAN : 2000 SEX: F Accession Number: [id number] ORDERING PHYSICIAN: ANTOINETTE BLAKELY REFERRING PHYSICIAN: SHAUNA NAIR Coding Procedures ? 13651: Ultrasound, uterus, real time with image documentation, follow up,transabdominal ? approach per fetus Indication Screening for follow-up survey, History of prior with gestational diabetes, History of prior with IUGR, History of prior with delivery, Hypothyroidism. History OB History ? 2. Para 1 ? R3T1U2X0 Current Cell free DNA ?low risk analysis [...] (oz) ? 11 oz EFW by: ?Hadlock (QFU-CP-CC-FL) Extended Tibia ??40.0 mm 25w 2d 39% Joanie Cannon Crewmember ? 2.9 mm CM ? 6.9 mm [...] view. RVOT view. LVOT view. 3-vessel view. 4-khxghw-bvyaqij view. Situs. Aortic arch view. ? Bicaval [...] MVP measures 5 cm. Recommendations Please see [facility] recommendations from prior clinical and/or ultrasound report documentation. Subsequent follow up or other follow up as clinically determined by primary OB provider unless otherwise specified by MFM. Results forwarded to ordering provider so they can follow up with the patient as necessary. Procedure Note Antoinette Blakely MD - 12/12/2024 NAME: KERRY MILLAN : 2000 SEX: F Accession Number: [id number] ORDERING PHYSICIAN: ANTOINETTE BLAKELY REFERRING PHYSICIAN: SHAUNA NAIR Coding Procedures 29364: Ultrasound, uterus, real time with image documentation, follow up, transabdominal approach per fetus Indication Screening for follow-up survey, History of prior withgestational diabetes, History of prior with IUGR, History of prior with delivery, Hypothyroidism. History OB History 2. Para 1 U4P8O3C7 Current Cell free DNA low risk analysis [...] EFW (oz) 11 oz EFW by: Hadlock (PYX-TD-JJ-FL) Extended Tibia 40.0 mm 25w 2d 39% Joanie Cannon Crewmember 2.9 mm CM 6.9 mm 70% Nicolaides [...] view. RVOT view. LVOT view. 3-vessel view. 8-rblmut-wfpihpx view. Situs. Aortic arch view. Bicaval view. [...] MVP measures 5 cm. Recommendations Please see [facility] recommendations from prior clinical and/or ultrasoundreport documentation. Subsequent follow up or other follow up as clinically determined byprimary OB provider unless otherwise specified by [facility]. Results forwarded to ordering provider so they can follow up with thepatient as necessary. Authorizing ProviderResult TypeResult StatusAntoinette Blakely MDG ORDERABLESFinal Result from Last 3 Months Insurance Advance Directives * Full Code (Latest Code Status on File) Date ActivatedDate InactivatedComments05/30/2021 7:15 AM3 2:55 PM * Full Code Date ActivatedDate InactivatedComments05/12/2021 1:10 PM2 2:16 PM * Full Code Date ActivatedDate InactivatedComments04/21/2021 7:00 PM2/04/2021 1:57 PM * Full Code Date ActivatedDate OzflxnvqlnyHaawdvzk48/14/2021 5:01 PM03/26/2021 7:46 PM Care Teams Team MemberRelationshipSpecialtyStart DateEnd Date Carrillo White MD PCP - GeneralInternal Medicine04/07/21
--- OUTSIDE RECORDS SUMMARY | 2025-02-21 02:36 | XMS_ITS | Encounter Summary ---
Author Organization [facility] Address [address] [facility] [place] [address] Care Team Providers Care Legal Document Assistant Name Role Phone Carrillo White MD Primary Care Provider [phone] Encounter Details DateTypeDepartmentCare Team (Latest Contact Info)Clovnxaaryx78/25/2025linisync Result Encounter [facility] External Department Unsolicited Santosh [place] DO [address] [place] [address] Social History Tobacco UseTypesPacks/DayYears UsedDateSmoking Tobacco: NeverAlcohol UseStandard Drinks/WeekCommentsYes0 (1 standard drink = 0.6 oz pure alcohol)occasional alcohol useEstimated Date of LxaagtydMhsyonyoOrm436Based on last menstrual period of 06/16/2024Sex and Gender InformationValueDate RecordedSex Assigned at BirthNot on fileLegal TwhPlvsgf89/15/2023 10:14 PM EDTGender IdentityNot on fileSexual OrientationNot on filedocumented as of this encounter Plan of Treatment DateTypeDepartmentCare Team (Latest Contact Info)Uvjmgsoyxdk13/04/2025 11:00 AM ESTRoutine [facility] [place] [facility] [address] [place] [phone] Santosh [place] DO [address] [place] [address] documented as of this encounter Procedures Procedure NamePriorityDate/TimeAssociated DiagnosisCommentsALL CBC WITH AUTO QLPWJcdoggz88/25/2025 4:15 PM EST H UA (CLEAN/CATCH) OVERHEAD CLEANER/MICRO IF IND.Jphwtir2502/12/2025 4:00 PM EST [facility] DRUG SCREEN RAPID (URINE)Ttkoqhb2602/12/2025 4:00 PM EST documented in this encounter Results * (ABNORMAL) ALL CBC WITH AUTO DIFF (02/12/2025 4:15 PM EST)ComponentValueRef RangeTest MethodAnalysis TimePerformed AtPathologist SignatureTBH WBC9.84.0 - 11.0 10 3/uLTBHTBH RBC3.28(L)4.20 - 5.40 10 6/uLTBHTBH HGB10.0(L)12.0 - 16.0 g/dLTBHTBH HCT30.7(L)36.0 - 48.0 %TBHTBH MCV93.681.0 - 99.0 fLTBHTBH MCH30.5 26.7 - 34.0 pgTBHTBH MCHC32.629.9 - 35.2 g/dLTBHTBH RDW13.011.0 - 15.0 %TBHTBH FUR318994 - 450 10 3/uLTBHTBH MPV11.39.5 - 13.5 [...] [facility] * (ABNORMAL) [facility] UA (CLEAN/CATCH) OVERHEAD CLEANER/MICRO IF IND. (02/12/2025 4:00 PM EST) ComponentValueRef [...] Team MemberRelationshipSpecialtyStart DateEnd Carrillo White MD [address] [place] [address] PCP - GeneralInternal Medicine11/29/22documented as of this encounter
--- OUTSIDE RECORDS SUMMARY | 2025-02-21 02:36 | XMS_ITS | Encounter Summary ---
Author Organization [facility] Address [address] [facility] [place] [address] Care Team Providers Care Criminal Research Specialist Name Role Phone Carrillo White MD Primary Care Provider [phone] Encounter Details DateTypeDepartmentCare Team (Latest Contact Info)Iabkocypydb39/02/2025linisync Result Encounter [facility] External Department Unsolicited Shauna Marshall DO [address] [place] [address] Social History Tobacco UseTypesPacks/DayYears UsedDateSmoking Tobacco: NeverAlcohol UseStandard Drinks/WeekCommentsYes0 (1 standard drink = 0.6 oz pure alcohol)occasional alcohol useEstimated Date of ZjapoaufJohujmkdOus456Based on last menstrual period of 06/16/2024Sex and Gender InformationValueDate RecordedSex Assigned at BirthNot on fileLegal GssLkvtfi81/15/2023 10:14 PM EDTGender IdentityNot on fileSexual OrientationNot on filedocumented as of this encounter Plan of Treatment DateTypeDepartmentCare Team (Latest Contact Info)Otxyedrpbar05/04/2025 11:00 AM ESTRoutine [facility] [address] [place] [address] Shauna Marshall DO [address] [place] [address] documented as of this encounter Procedures Procedure NamePriorityDate/TimeAssociated DiagnosisCommentsUS OB BPP W NON-WKBIKY7402/19/2025 2:15 PM EST documented in this encounter Results * US OB BPP W NON-STRESS (02/19/2025 2:15 PM EST)Anatomical Region LateralityModalityOtherSpecimen (Source)Anatomical Location / Laterality Collection Method / VolumeCollection TimeReceived Time02/19/2025 2:15 PM EST Narrative 02/19/2025 2:18 PM EST [facility] ?[address] ? [place] [address] ? Ultrasound Report ? Signed ? Patient: YANA PAYNE R ?MR#: [id number] ?? : 2000 ?Acct:[id number] ?? Age/Sex: 25 / F ?ADM Date: 02/19/25 ?? Loc: [facility] ??252-1 ? Attending Dr: Shauna Marshall D.O. ? Ordering Physician: Shauna Marshall D.O. ?? Date of Service: 02/19/25 ?? Procedure(s): US OB BPP w non-stress ?? Accession Number(s): [id number] ? cc: Shauna Marshall D.O.; Physician,Non-Staff M.D. ? [facility] ? [address] ? [place] [address] ? Patient Name: ?? YANA Jaimes KERRY ? MRN: [facility]:[id number] ? date: 2000 ?Sex: F ?? Assigned Patient Location: [facility] ?? Current Patient Location: [facility] ?? Accession/Order Number: [id number] ?? Exam Date: 02/19/2025 ??13:08 ?Report Date: 02/19/2025 ??14:15 ? At the request of: ?? SHAUNA ??JOANNA ??DO ? Procedure: ??US OB BPP w non-stress ? Biophysical profile. ? Reason for exam: Thyroid disease ? COMPARISON: BPP 02/12/2025 ? TECHNIQUE: Transabdominal imaging of the gravid uterus was obtained. ? FINDINGS: The manufacturing technician reports a BPP of 8 out of 8. ??CALVIN is normal at 24.96 ?? cm. ?? heart rate 153 bpm. ? US/US OB BPP w non-stress ?? IMPRESSION: BPP 8 out of 8. ? Borderline polyhydramnios. ? Impression dictated by: Hermelindo [place] Jr., D.O. ??02/19/2025 2:15 PM ? Dictation Location: RADIO-PC- ? Electronically authenticated by: [id number] ??Y ?? Date: 02/19/2025 ??14:15 ? Dictated By: ?Hermelindo [place]o M.D. ? Signed By: ?02/19/25 1418 ? DD/ 1415 ? TD/TT: ? Multimedia Artist: Procedure Note Radiology, Radiologist, MD - 02/19/2025 [place] [address] Ultrasound Report Signed Patient: YANA PAYNE RMR#: [id number] : 2000Acct:[id number] Age/Sex: 25 / FADM Date: 02/19/25 Loc: [facility] 252-[address]: Shauna Marshall D.O. Ordering Physician: Shauna Marshall D.O. Date of Service: 02/19/25 Procedure(s): US OB BPP w non-stress Accession Number(s): [id number] cc: Shauna Marshall D.O.; Physician,Non-Staff M.Sade The [address] [address] Patient Name: YANA PAYNE MRN: [facility]:[id number] date: 2000 Sex: F Assigned Patient Location: [facility] Current Patient Location: [facility] Accession/Order Number: [id number] Exam Date: 02/19/2025 13:08 Report Date: 02/19/2025 14:15 At the request of: SHAUNA MARSHALL DO Procedure: US OB BPP w non-stress Biophysical profile. Reason for exam: Thyroid disease COMPARISON: BPP 02/12/2025 TECHNIQUE: Transabdominal imaging of the gravid uterus was obtained. FINDINGS: The manufacturing technician reports a BPP of 8 out of 8. CALVIN is normal at24.96 cm. heart rate 153 bpm. US/US OB BPP w non-stress IMPRESSION: BPP 8 out of 8. Borderline polyhydramnios. Impression dictated by: Hermelindo [place] Jr., D.O. 02/19/2025 2:15 PM Dictation Location: [place] [address] Electronically authenticated by: [id number] Y Date: 4:15 Dictated By: Hermelindo [place]o M.D. Signed By:02/19/25 1418 DD/ 141 TD/TT: Multimedia Artist: Authorizing ProviderResult TypeResult StatusCorey Joanna DOCLINISYNC IMAGINGFinal Result documented in this encounter Visit Diagnoses Not on filedocumented in this encounter Care Teams Team MemberRelationshipSpecialtyStart DateEnd Date Carrillo White MD [address] [place] [address] PCP - GeneralInternal Medicine11/29/22documented as of this encounter
--- OUTSIDE RECORDS SUMMARY | 2025-02-21 02:36 | XMS_ITS | Clinical Summary ---
Author Organization [facility] [place] [address] Care Team Providers Care Cytogenetics Laboratory Manager Name Role Phone Carmita Jurado MD Unavailable [phone] Social History Tobacco UseTypesPacks/DayYears UsedDateSmoking Tobacco: Never Assessed CommentsUnknownSex and Gender InformationValueDate RecordedSex Assigned at Not on fileLegal ZgwXaghcf68/24/2025 11:11 AM ESTGender IdentityNot on file Sexual [...] Td or Tdap), 06/22/2010, 10/16/2003, Additional history epaislBHELgnsjhbem53/28/2004, 01/26/19993434TczUJCVGvifpvzad06/27/2016, 06/22/2010HIBAged OutNo longer eligible based on patient's age to complete this topicNirsevimabAged OutNo longer eligible based on patient's age to complete this topicPneumococcalAged OutNo longer eligible based on patient's age to complete this topicRotavirusAged OutNo longer eligible based on patient's age to complete this topic Insurance Care Teams Team MemberRelationshipSpecialtyStart DateEnd [place] [address] Attending ProviderMedical Clinical Genetics2/24/25
--- OUTSIDE RECORDS SUMMARY | 2025-02-21 02:36 | XMS_ITS | Encounter Summary ---
Author Organization [facility] Address [address] [place] [address] Care Team Providers Care Reservoir Engineer Name Role Phone Carrillo White MD Primary Care Provider [phone] Encounter Details DateTypeDepartmentCare Team (Latest Contact Info)Eutxouquxar77/01/2025Telephone [facility] [address] [place] [address] [place] [address] Ann Ma MA Social History Tobacco UseTypesPacks/DayYears UsedDateSmoking Tobacco: NeverAlcohol UseStandard Drinks/WeekCommentsYes0 (1 standard drink = 0.6 oz pure alcohol)occasional alcohol useEstimated Date of DnazxlcuXmzvdmppDmq23/03/2026ased on last menstrual period of 06/16/2024Sex and Gender InformationValueDate RecordedSex Assigned at BirthNot on fileLegal FqwFqbyil03/15/2023 10:14 PM EDTGender IdentityNot on fileSexual OrientationNot on filedocumented as of this encounter Miscellaneous Notes * Telephone Encounter - Ann Ma MA - 02/20/2025 11:46 AM EST Pt called in stating wrong fax# was given. Note resent to [phone]. * Telephone Encounter - Ann Ma MA - 02/20/2025 10:[address] Marshall approved time off until about 36 weeks. States this may be subject to change depending onpts status and whether she want to be off for the remainder of her . They will discuss at next appt on 02/21/2025. Letter made and faxed to her work per patient request F#[phone] * Telephone Encounter - Ann Ma MA [...] Plan of Treatment DateTypeDepartmentCare Team (Latest Contact Info)Eobowkgkzqf59/04/2025 11:00 AM ESTRoutine [facility] [address] [place] [phone] Santosh Marshall DO [address] [facility] [place] [address] documented as of this encounter Visit Diagnoses Not on filedocumented in this encounter Care Teams Team MemberRelationshipSpecialtyStart DateEnd Date Carrillo White MD [address] [place] [address] PCP - GeneralInternal Medicine11/29/22documented as of this encounter
--- OUTSIDE RECORDS SUMMARY | 2025-02-21 02:36 | XMS_ITS | Encounter Summary ---
Author Organization [facility] Address [address] [facility] [place] [address] Care Team Providers Care Cancellation Clerk Name Role Phone Carrillo White MD Primary Care Provider [phone] Encounter Details DateTypeDepartmentCare Team (Latest Contact Info)Xevmvuqommq61/25/2025linisync Result Encounter [facility] External Department Unsolicited Shauna Marshall DO [address] [place] [address] Social History Tobacco UseTypesPacks/DayYears UsedDateSmoking Tobacco: NeverAlcohol UseStandard Drinks/WeekCommentsYes0 (1 standard drink = 0.6 oz pure alcohol)occasional alcohol useEstimated Date of UctwwvfpDiaohajaAyy896Based on last menstrual period of 06/16/2024Sex and Gender InformationValueDate RecordedSex Assigned at BirthNot on fileLegal OozTsgoil82/15/2023 10:14 PM EDTGender IdentityNot on fileSexual OrientationNot on filedocumented as of this encounter Plan of Treatment DateTypeDepartmentCare Team (Latest Contact Info)Lfqzbwdohco16/04/2025 11:00 AM ESTRoutine [facility] [address] [place] [address] Shauna Marshall DO [address] [place] [address] documented as of this encounter Procedures Procedure NamePriorityDate/TimeAssociated DiagnosisCommentsUS OB BPP W NON-TMGIGC1402/12/2025 8:46 PM EST documented in this encounter Results * US OB BPP W NON-STRESS (02/12/2025 8:46 PM EST)Anatomical Region LateralityModalityOtherSpecimen (Source)Anatomical Location / Laterality Collection Method / VolumeCollection TimeReceived Time02/12/2025 8:46 PM EST Narrative 02/12/2025 9:25 PM EST [facility] ?[address] ? [place] [id number] ? Ultrasound Report ? Signed ? Patient: YANA PAYNE R ?MR#: [id number] ?? : 2000 ?Acct:[id number] ?? Age/Sex: 25 / F ?ADM Date: 02/12/25 ?? Loc: [facility] ??250-1 ? Attending Dr: Shauna Marshall D.O. ? Ordering Physician: Shauna Marshall D.O. ?? Date of Service: 02/12/25 ?? Procedure(s): US OB BPP w non-stress ?? Accession Number(s): [id number] ? cc: Shauna Marshall D.O.; Physician,Non-Staff M.D. ? [facility] ? [address] ? [place] [address] ? Patient Name: ?? YANA PAYNE ? MRN: [facility]:[id number] ? date: 2000 ?Sex: F ?? Assigned Patient Location: [facility] ?? Current Patient Location: [facility]O ?? Accession/Order Number: [id number] ?? Exam Date: 02/12/2025 ??14:55 ?Report Date: [...] Dictation Location: RADIO-PC-29 ? Electronically authenticated by: [id number] ??Y ?? Date: 02/12/2025 ??20:46 ? Dictated By: ?Ramakrishna Santiago M.D. ? Signed By: ?25/25 5 ? DD/ 45 ? TD/TT: ? Apartment Community Manager: Procedure Note Radiology, Radiologist, - 02/12/[address] [address] Ultrasound Report Signed Patient: YANA PAYNE RMR#: [id number] : 2000Acct:[id number] Age/Sex: 25 / FADM Date: 02/12/25 Loc: [facility] 250-[address]: Shauna Marshall D.O. Ordering Physician: Shauna Marshall D.O. Date of Service: 02/12/25 Procedure(s): US OB BPP w non-stress Accession Number(s): [id number] cc: Shauna Marshall D.O.; Physician,Non-Staff Ravi The [place] [id number] Patient Name: YANA PAYNE MRN: [facility]:[id number] date: 2000 Sex: F Assigned Patient Location: [facility] Current Patient Location: [facility] Accession/Order Number: [id number] Exam Date: 02/12/2025 14:55 Report Date: 02/12/2025 20:46 At the request of: SHAUNA MARSHALL DO Procedure: US OB BPP w non-stress Ultrasound biophysical profile COMPARISON: 02/05/2025 INDICATION: Hypothyroidism FINDINGS IMPRESSION: Cephalic position. heart rate 153 bpm. AFI17.4 cm. Biophysical profile score 8/8 Impression dictated by: Ramakrishna Santiago M.D. 02/12/2025 8:46 PM Dictation Location: [place] [address] Electronically authenticated by: [id number] Y Date: 0:46 Dictated By: Ramakrishna Santiago M.D. Signed By:02/12/252124 DD/ 45 TD/TT: Apartment Community Manager: Authorizing ProviderResult TypeResult StatusCorey Joanna DOCLINISYNC IMAGINGFinal Result documented in this encounter Visit Diagnoses Not on filedocumented in this encounter Care Teams Team MemberRelationshipSpecialtyStart DateEnd Date Carrillo White MD [address] [facility] [place] [address] PCP - GeneralInternal Medicine11/29/22documented as of this encounter
[2025-02-21] MEDS: AMPICILLIN SODIUM 2,000 MG in 0.9 % SODIUM CHLORIDE 100 ML 200 MG IV (03:07)
[2025-02-21] MEDS: 0.9 % SODIUM CHLORIDE 1,000 ML 125 ML IV (03:07)
[2025-02-21 03:24] LABS: Cannabinoid Screen Urine NEGATIVE (NEGATIVE); Methamphetamines Screen Urine NEGATIVE (NEGATIVE); Tricyclic Antidepressant Urine NEGATIVE (NEGATIVE)
[2025-02-21 03:29] LABS: Hematocrit 32.3 % (36.0-48.0); Hemoglobin 10.6 g/dL (12.0-16.0); Mean Corpuscular HGB Conc 32.8 g/dL (29.9-35.2); Mean Corpuscular Hemoglobin 30.1 pg (26.7-34.0); Mean Corpuscular Volume 91.8 fL (81.0-99.0); Platelet Count 377 10^3/uL (150-450); Red Blood Count 3.52 10^6/uL (4.20-5.40); White Blood Count 11.4 10^3/uL (4.0-11.0)
[2025-02-21] MEDS: OXYTOCIN/0.9 % SODIUM CHLORIDE 20 UNITS/1,000 ML PLAST..BAG 125 UNIT IV (03:45)
--- NOTE | 2025-02-21 03:51 | PM.OBPRCVD ---
Procedure Intrapartal events: None Induction method: none Delivery monitor: external FHT and external uterine Route of delivery: Episiotomy Description: none L&D Laceration Description: perineal - 1st degree Delivery repair: Vicryl Estimated blood loss (mL): 250 Anesthesia type: None Disposition: floor Delivery date: 02/21/25 Gender: female presentation: vertex Placental delivery description: Spontaneous and Normal Configuration cord description: 3 Vessels
[2025-02-21] MEDS: IBUPROFEN 600 MG TABLET PO (05:10)
[2025-02-21] MEDS: BENZOCAINE/MENTHOL 85 GRAM SPRAY BOTTLE 1 APPLIC TOPICAL (05:11)
[2025-02-21] MEDS: GLYCERIN/WITCH HAZEL PADS 1 PAD TOPICAL (05:11)
--- NOTE | 2025-02-21 19:31 | W.PC.ACHO ---
Registration Status: ADM PASQUALE Primary Language: Botswanan Preferred Language: Botswanan Report given Narendra HENLEY at 1915. Care relinquished at this time. Active Medications Generic Name Dose Route Start Last Admin Trade Name Freq PRN Reason Stop Dose Admin Acetaminophen 650 mg 02/21/25 03:52 Acetaminophen 325 Mg Tablet PO Q6H PRN Mild Pain Al Hydroxide/Mg Hydroxide 2,400 mg 02/21/25 03:52 Magnesium Hydroxide 2,400 Mg/10 Ml Oral.Susp PO Q6H PRN Dyspepsia Benzocaine/Menthol 1 applic 02/21/25 03:52 02/21/25 05:11 Benzocaine/Menthol 85 Gram [place] Bottle TOPICAL 1 applic Q2H PRN Administration Pain Carboprost Tromethamine 250 mcg 02/21/25 02:56 Carboprost Tromethamine 250 Mcg/Ml 1 Ml Vial IM 02/22/25 04:00 Q15M PRN Bleeding Diphtheria/Tetanus/Acell Pertussis 0.5 ml 02/23/25 09:00 Diphth,Pertuss(Acell),Tet Vac 0.5 Ml Syringe IM 02/23/25 09:01 .ONCE ONE Docusate Sodium 100 mg 02/22/25 09:00 Docusate Sodium 100 Mg Capsule PO BID DANY Tranexamic Acid 1,000 mg/ 110 mls @ 440 mls/hr 02/21/25 02:56 Sodium Chloride IV 02/22/25 04:00 ONCE PRN Uterine Bleeding Sodium Chloride 1,000 mls @ 125 mls/hr 02/21/25 03:00 02/21/25 03:45 Sodium Chloride 0.9% 1,000 Ml IV Infused .Q8H DANY Infusion Ibuprofen 600 mg 02/21/25 03:52 02/21/25 05:10 Ibuprofen 600 Mg Tablet PO 600 mg Q6H PRN Administration Moderate Pain Measles/Mumps/Rubella Vaccine Live 0.5 ml 02/23/25 09:00 Measles,Mumps,Rubella Vacc/Pf 0.5 Ml Vial SQ 02/23/25 09:01 .ONCE ONE Methylergonovine Maleate 0.2 mg 02/21/25 02:56 Methylergonovine Maleate 0.2 Mg/Ml Ampule IM 02/22/25 04:00 ONCE PRN Uterine Contractility/Contract Methylergonovine Maleate 0.2 mg 02/21/25 02:56 Methylergonovine Maleate 0.2 Mg Tablet PO 02/22/25 04:00 Q4H PRN Uterine Contractility/Contract Misoprostol 600 mcg 02/21/25 02:56 Misoprostol 100 Mcg Tablet PO 02/22/25 04:00 ONCE PRN Uterine Bleeding Misoprostol 800 mcg 02/21/25 02:56 Misoprostol 100 Mcg Tablet SL 02/22/25 04:00 ONCE PRN Uterine Bleeding Misoprostol 1,000 mcg 02/21/25 02:56 Misoprostol 100 Mcg Tablet [place] 02/22/25 04:00 ONCE PRN Uterine Bleeding Ondansetron HCl 4 mg 02/21/25 02:56 Ondansetron Pf 4 Mg/2 Ml Vial IV Q6H PRN Nausea And Vomiting Ondansetron HCl 4 mg 02/21/25 02:56 Ondansetron 4 Mg Rapdis Tablet SL Q6H PRN Nausea And Vomiting Oxytocin 10 unit 02/21/25 02:56 Oxytocin 10 Unit/Ml Vial IM 02/22/25 04:00 ONCE PRN bleeding Senna 17.2 mg 02/21/25 20:00 Sennosides 8.6 Mg Tablet PO QHS PRN Constipation Simethicone 80 mg 02/21/25 03:52 Simethicone 80 Mg Tab.Chew PO QID PRN Abdominal Distention Temazepam 15 mg 02/21/25 03:52 Temazepam 15 Mg Capsule PO QHS PRN Sleep Witch Suzette/Glycerin 1 pad 02/21/25 03:52 02/21/25 05:11 Glycerin/Witch Suzette Pads TOPICAL 1 pad Q2H PRN Administration Pain Diet Category Date Time Status Regular Consistency Diet Diet 02/21/25 03:52 Active IV Insertion/Site Date of IV Line Insertion [18g 02/21/25 left Antecubital] IV Insertion Time [18g left 03:05 Antecubital] Neurology Patient orientation (short person,place,time,situation list) Respiratory Oxygen Delivery Method Room Air Oxygen Delivery Method Room Air Oxygen Delivery Method Room Air Oxygen Delivery Method Room Air Oxygen Delivery Method Room Air Oxygen Delivery Method Room Air Cardiology Heart Sounds Regular Heart Sounds Regular Heart Sounds Regular Bowels Bowel Pattern No Bowel Movement Bowel Pattern No Bowel Movement Bowel Pattern No Bowel Movement Renal Bladder Pattern Continent Bladder Pattern Continent Bladder Pattern Continent
[2025-02-22 00:40] VITALS: BP 111/67; PULSE 78; TEMP 36.6
[2025-02-22 00:41] VITALS: PULSE 78
[2025-02-22 06:33] LABS: Hematocrit 31.9 % (36.0-48.0); Hemoglobin 10.3 g/dL (12.0-16.0); Immature Granulocytes Abs Auto 0.06 10^3/uL (0.00-0.03); Immature Granulocytes Pct Auto 0.5 % (0.0-0.5); Lymphocytes Absolute Auto 2.2 10^3/uL (1.2-3.8); Mean Corpuscular HGB Conc 32.3 g/dL (29.9-35.2); Mean Corpuscular Hemoglobin 29.9 pg (26.7-34.0); Mean Corpuscular Volume 92.7 fL (81.0-99.0); Platelet Count 345 10^3/uL (150-450); Red Blood Count 3.44 10^6/uL (4.20-5.40); White Blood Count 11.3 10^3/uL (4.0-11.0)
--- NOTE | 2025-02-22 07:30 | P.OBPN_ITS ---
OB - PN: Subj Subjective Patient comments: no complaints Randleman status: doing well feeding status: exclusively Exam Constitutional Vital Signs, click to edit/add: Last Vital Signs Temp 97.9 F 02/22/25 00:40 Pulse 78 02/22/25 00:41 Resp 16 02/22/25 00:41 BP 111/67 02/22/25 00:40 O2 Del Method Room Air 02/21/25 15:45 Documenting provider has reviewed patient's vital signs: yes Common normals: no apparent distress and oriented x3 Exam limitations: altered mental status General appearance: cooperative and comfortable Orientation/consciousness: Yes awake, Yes oriented to person, Yes oriented to place and Yes oriented to time HENMT Common normals: normocephalic Nose: external nose normal Eye Common normals: EOMs intact bilaterally General eye: normal appearance of both eyes Neck & C-Spine Common normals: full ROM General: normal visual inspection Lymph Lymphatic: no lymphadenopathy noted Chest Common normals: inspection of chest normal Respiratory Common normals: normal respiratory effort Effort & inspection: able to speak in complete sentences Cardio Common normals: regular rate and regular rhythm Rate: regular rate Rhythm: regular rhythm GI Common normals: Normal to inspection, nondistended, normoactive bowel sounds present Inspection: normal to inspection Rectal Exam - Female: deferred Common normals: no CVA tenderness Back & Pelvis Thoracic spine/upper back: normal to inspection Extremity Common normals: normal to inspection Neuro Common normals: oriented x3 Sensorium/orientation: awake, alert, oriented to person, oriented to place and oriented to time Psych Common normals: mental status grossly normal, thought process normal, cooperative, affect normal, speech normal, activity/motor behavior normal, de nies hallucinations, denies homicidal ideation and denies suicidal ideation Appearance: grossly normal Attitude: calm Results Labs Labs: Short CBC 02/22/25 Range/Units 06:16 WBC 11.3 H (4.0-11.0) 10^3/uL Hgb 10.3 L (12.0-16.0) g/dL Hct 31.9 L (36.0-48.0) % Plt Count 345 (150-450) 10^3/uL OB - PN: A/P Plan - Vaginal Delivery day: 1 Plan: routine care Time Spent with Patient Time: Total time spent is greater than 50% in coordination of care (as documented) at patient's floor/unit and/or counseling patient: Total time spent with greater than 50% in coordination of care (as documented) at patient's floor/unit and/or counseling patient: less than 15 minutes
[2025-02-22 07:40] VITALS: PULSE 79; TEMP 36.6
[2025-02-22 07:49] VITALS: BP 115/75; PULSE 79
[2025-02-22] MEDS: DOCUSATE SODIUM 100 MG CAPSULE PO (09:20)
--- OUTSIDE RECORDS SUMMARY | 2025-02-22 10:10 | XMS_ITS | CCD ---
Author Organization [facility] Care Team Providers Care Channel Man Name Role Phone JOANNA, DR VILLATORO Admitting [...] Care Unavailable Ritu Desai Primary Care Physician [phone] Norberto, Ya L Primary Care Physician Norberto, Ya L Admitting Unavailable Norberto, Ya L Attending Unavailable Danile Gray Attending Unavailable Norberto, Ya L Attending [...] Primary Care Provider Carmita Jurado MD Unavailable [phone] CARMITA JURADO Referring Unavailable CARMITA JURADO Attending Unavailable Alba Thorntonbemonty Alexandre Primary Care Physician [phone] Marta Almanzar Attending Unavailable Marta Almanzar Admitting Unavailable Marta Almanzar Attending Unavailable Norberto, Ya L Admitting Unavailable Nancy Thorntonzabeth L Attending Unavailable Marta Almanzar Attending Unavailable Ham Robins Attending Unavailable Ham Robins Attending Unavailable Marta Almanzar Attending Unavailable Marta Almanzar Admitting Unavailable Unavailable Primary Care Provider UnavailStaci Kirk MD Primary Care Provider [phone] SANTOSH MARSHALL Referring Unavailable STACI WHITE Primary Care Unavailable JACKLYN CAMPOS Attending Unavailable SANTOSH MARSHALL Referring Unavailable STACI WHITE Primary Care Unavailable SANTOSH MARSHALL Referring Unavailable STACI WHITE Primary Care Unavailable SANTOSH MARSHALL Referring Unavailable STACI WHITE Primary Care Unavailable SANTOSH MARSHALL Referring Unavailable STCAI WHITE Primary Care Unavailable Staci White MD Primary Care Provider [phone] SANTOSH MARSHALL Attending Unavailable ERUM GUIDRY Attending Unavailable SANTOSH MARSHALL Attending Unavailable ERUM GUIDRY Attending Unavailable SANTOSH MARSHALL Attending Unavailable SANTOSH MARSHALL Attending Unavailable SANTOSH MARSHALL Attending Unavailable Medications Current Medications MedicationDrug Class(es)DatesSig (Normalized)Sig (Original)acetaminophen 500 mg oral tablet (3 sources)Start: 43-25-0611ecdq 2 tablets by mouth every eight hours [...] oral capsule (2 sources)Cephalosporin AntibacterialStart: 03-09-2023 End: 67-79-3517cuwx 1 capsule by mouth four times dailyKeflex 500 mg Cap 500 mg = 1 cap(s), Oral, QID, X 7 day(s), # 28 cap(s), Refills(s) 0, Pharmacy: [facility], 166, cm, 03/09/23 7:33:00 EST, Height/Length Dosing, 58.7, kg, 03/09/23 7:33:00 EST, Weight Dosing Start Date: 03/09/23 Stop Date: 03/16/23 Status: OrderedColace (3 sources)Start: 39-41-1363Clfkmd Refills(s) 0 Start Date: 11/30/22 Status: OrderedStart: 06-01-2021 End: 52-61-6799oyxf 1 capsule by mouth in the morning, then take 1 capsule by mouth at bedtimedocusate sodium (COLACE) 100 mg capsule Take 1 capsule (100 mg total) by mouth in the morning and 1capsule (100 mg total) before bedtime. 10 capsule 06/01/2021 11/05/2024 Discontinued (Therapy completed)Flonase (3 sources)CorticosteroidStart: 81-46-6514Gdggwor Nasal, Daily, Refill(s) 0 Start Date: 09/10/18 Status: OrderedFREESTYLE LITE METER kit (3 sources)Start: 12-03-6877GACZSHMQY LITE METER kit See Admin Instructions. 03/26/2021 Activehydrocortisone acetate 0.025 mg/mg / lidocaine hydrochloride 0.03 mg/mg rectal gel (2 sources)Antiarrhythmic, Corticosteroid, Amide Local AnestheticStart: 78-03-1406rdnhapvyvqhykl-lidocaine 2.5%-3% rectal gel with applicator 1 carmen, Rectal, BID, 60 EA, Refill(s) 1,[id number], 166, cm, 11/11/22 9:28:00 EDT, Height/Length Dosing, 59.4, kg, 11/11/22 9:28:00 EDT, Weight Dosing Start Date: 11/19/22 Status: OrderedStart: 54-01-2924tyzsztopfmqxrw-lidocaine 2.5%-3% rectal gel with applicator 1 carmen, Rectal, BID, 60 EA, Refill(s) 1,[facility], 166, cm, 11/11/22 9:28:00 EDT, Height/Length Dosing, 59.4, kg, 11/11/22 9:28:00 EDT, Weight Dosing Start Date: 11/11/22 Status: Orderedlevothyroxine sodium 0.125 mg oral tablet (20 sources)l-ThyroxineStart: 09-17-2024 End: 48-61-9727bugl 1 tablet by mouth before mealtimelevothyroxine (Synthroid) 125 MCG tablet Indications: Thyroid disease Take 1 tablet (125 mcg) by mouth in the morning. Take before meals. 30 tablet 11 09/17/2024 09/17/2025 ActiveStart: 08-22-2024 End: 34-99-9406kgqi 1 tablet by mouth before mealtimelevothyroxine (Synthroid) 25 MCG tablet Indications: Thyroid disease Take 1 tablet (25 mcg) by mouth in the morning. Take before meals. 30 tablet 11 08/22/2024 10/15/2024 Discontinued Start: 60-07-1007lvjn 1 tablet by mouth once dailySynthroid 100 mcg Tab 100 mcg = 1 tab(s), Oral, Daily, # 90 tab(s), Refills(s) 0, Pharmacy: [facility], 166, cm, 08/08/23 15:44:00 EDT, Height/Length Dosing, 56.1, kg, 08/08/23 15:51:00 EDT, Weight Dosing Start Date: 06/19/24 Status: Ordered Quantity: 90.0 Unit: tab(s) Repeat number: 1Start: 06-19-2024 End: 86-96-1711izwx 1 tablet by mouth once dailylevothyroxine (Synthroid, Levoxyl) 100 MCG tablet Take 100 mcg by mouth Daily 06/19/2024 10/15/2024 DiscontinuedStart: 17-09-5912frtk 1 tablet by mouth once dailySynthroid 100 mcg Tab 100 mcg = 1 tab(s), Oral, Daily, # 90 tab(s), Refills(s) 1, Pharmacy: [facility], 166, cm, 05/16/23 14:25:00 EST, Height/Length Dosing, 56.7, kg, 05/16/23 14:25:00 EST, Weight Dosing Start Date: 05/16/23 Status: OrderedStart: 39-06-9069ngpq 1 tablet by mouth once dailySynthroid 112 mcg Tab 112 mcg = 1 tab(s), Oral, Daily, # 60 tab(s), Refills(s) 0, Pharmacy: [facility], 166, cm, 11/30/22 12:12:00 EDT, Height/Length Dosing, 58.8, kg, 11/30/22 12:12:00 EDT, Weight Dosing Start Date: 02/07/23 Status: OrderedStart: 41-78-5879akuo 1 tablet by mouth once dailySynthroid 112 mcg Tab 112 mcg = 1 tab(s), Oral, Daily, # 60 tab(s), Refills(s) 0, Pharmacy: [facility], 166, cm, 10/08/22 15:10:00 EDT, Height/Length Dosing, 57.8, kg, 10/08/22 15:10:00 EDT, Weight Dosing Start Date: 10/08/22 Status: OrderedStart: 10-08-2022 End: 95-55-0713ftrj 1 tablet by mouth in the morninglevothyroxine (Synthroid, Levoxyl) 112 MCG tablet Take 112 mcg by mouth in the morning. 10/08/2022 0 08/17/2024 DiscontinuedStart: 62-97-7848tylu 1 tablet by mouth once daily levothyroxine 125 mcg (0.125 mg) Tab 125 mcg = 1 tab(s), Oral, Daily, # 90 tab(s), Refills(s) 3, Pharmacy: [facility], 166, cm, 05/03/22 14:21:00 EST, Height/Length Dosing, 61.2, kg, 05/03/22 14:21:00 EST, Weight Dosing Start Date: 05/03/22 Status: Orderedlevothyroxine (SYNTHROID, LEVOTHROID) 100 MCG tablet Take 125 mcg by mouth in the morning. Activeloratadine 10 mg oral tablet (13 sources)Start: 60-08-8665cvvy 1 tablet by mouth once dailyClaritin 10 mg Tab 10 mg, Oral, Daily, # 10 tab(s), Refills(s) 0, Pharmacy: [facility], 166, cm, 12/05/19 13:03:00 EDT, Height/Length Dosing, 61.6, kg, 12/05/19 13:03:00 EDT, Weight Dosing Start Date: 12/05/19 Status: Ordered Quantity: 10.0 Unit: tab(s) Repeat number: 1magnesium oxide 400 mg oral tablet (5 sources)Start: 08-17-2024 End: 11-91-3967buox 1 tablet by mouth once dailymagnesium oxide (Mag-Ox) 400 MG tablet Indications: Nonintractable headache, unspecified chronicitypattern, unspecified headache type Take 1 tablet (400 mg) by mouth Daily 30 tablet 6 08/17/2024 09/16/2024 Activephenazopyridine hydrochloride 200 mg oral tablet (4 sources)Start: 03-09-2023 End: 37-33-4642hgts 1 tablet by mouth three times dailyPyridium 200 mg Tab 200 mg = 1 tab(s), Oral, TID, X 3 day(s), # 9 tab(s), Refills(s) 0, Pharmacy: [facility], 166, cm, 03/09/23 7:33:00 EST, Height/Length Dosing, 58.7, kg, 03/09/23 7:33:00 EST, Weight Dosing Start Date: 03/09/23 Stop Date: 03/12/23 Status: OrderedStart: 02-21-2023 End: 12-20-7395yofv 1 tablet by mouth three times dailyPyridium 200 mg Tab 200 mg = 1 tab(s), Oral, TID, X 3 day(s), # 9 tab(s), Refills(s) 0, Pharmacy: [facility], 166, cm, 02/21/23 13:06:00 EST, Height/Length Dosing, 58.6, kg, 02/21/23 13:06:00 EST, Weight Dosing Start Date: 02/21/23 Stop Date: 02/24/23 Status: OrderedPNV no.95/ferrous fum/folic ac ( ORAL) (3 sources)PNV no.95/ferrous fum/folic ac ( ORAL) Take by mouth in the morning. ActivePNV no.95/ferrous fum/folic ac ( ORAL) Take by mouth daily. Activepolyethylene glycol 3350 133211 mg / potassium chloride 1480 mg / sodium bicarbonate 5720 mg / sodium chloride 65070 mg powder for oral solution (11 sources)Osmotic LaxativeStart: 11-87-8640AeUWRMIN Paige oral powder for reconstitution See Instructions, 1 EA, Refill(s) 0, Prior to colonoscopy., [id number], 166, cm, 11/30/22 12:12:00 EDT, Height/Length Dosing, 58.8, kg, 11/30/22 12:12:00 EDT, Weight Dosing Start Date: 11/30/22 Status: Ordered Quantity: 1.0 Unit: EA Repeat number: 1Prenatal MV-Min-Fe Fum-FA-DHA ( 1 PO) (20 sources) MV-Min-Fe Fum-FA-DHA ( 1 PO) Take by mouth Active Completed/Discontinued Medications MedicationDrug Class(es)DatesSig (Normalized)Sig (Original)ibuprofen 800 mg oral tablet (2 sources)Nonsteroidal Anti-inflammatory DrugStart: 06-01-2021 End: 91-35-6771zjox 1 tablet by mouth every eight hours as neededibuprofen (ADVIL,MOTRIN) 800 mg tablet Take 1 tablet (800 mg total) by mouth every 8 (eight) hours as needed (cramping). 30 tablet 06/01/2021 11/05/2024 Discontinued (Therapy completed)nitrofurantoin, macrocrystals 25 mg / nitrofurantoin, monohydrate 75 mg oral capsule (6 sources)Nitrofuran AntibacterialStart: 09-11-2024 End: 44-53-8707sqik 1 capsule by mouth in the morningnitrofurantoin, macrocrystal-monohydrate, (Macrobid) 100 MG capsule Indications: Urinary tract infection without hematuria, site unspecified Take 1 capsule (100 mg) by mouth in the morning and 1 capsule (100 mg) before bedtime. Do all this for 7 days. 14 capsule 09/11/2024 09/18/2024 ExpiredStart: 02-21-2023 End: 07-07-5692hoke 1 capsule by mouth every twelve hoursMacrobid 100 mg Cap 100 mg = 1 cap(s), Oral, q12hr, X 5 day(s), # 10 cap(s), Refills(s) 0, Pharmacy: [facility], 166, cm, 02/21/23 13:06:00 EST, Height/Length Dosing, 58.6, kg, 02/21/23 13:06:00 EST, Weight Dosing Start Date: 02/21/23 Stop Date: 02/26/23 Status: Orderedprogesterone (FIRST-PROGESTERONE VGS) 200 mg suppository (2 sources)Start: 03-26-2021 End: 68-20-9280upxzmaxkrynn (FIRST-PROGESTERONE VGS) 200 mg suppository Indications: Hypothyroid [...] Problems Problem ClassificationProblemDateDocumented DateEpisodic/ChronicAbdominal pain (13 sources)Abdominal vzsw69-72-9150SdktpxquPqdagzdhq infection; unspecified site (1 source)Infection due to Escherichia coli; Translations: [Unspecified Escherichia coli [E. coli] as the cause of diseases classified elsewhere]Onset: 29-67-6469HultgcyeNxtbrdbl or abnormal glucose tolerance complicating ; childbirth; or the puerperium (18 sources)History of gestational diabetes mellitus; Translations: [Gestational diabetes mellitus]Onset: 05-19-2021 Resolved: 049978-75-2429LohfzupbGyxbyuctjhpft symptoms and ill-defined conditions (4 sources)Dysuria; Translations: [Dysuria]Onset: 21-66-0260EteivfzmWhbuvfbu; including migraine (13 sources)Migraine without kgde16-18-2157WkvijkgBjbxvrtn; including migraine (6 sources)Headache; Translations: [Nonintractable headache, unspecified chronicity pattern, unspecified headache type]65-17-0020UccckunaJutyipthrp during ; abruptio placenta; placenta previa (4 sources)Low lying placenta; Translations: [Low lying placenta NOS or without hemorrhage, unspecified trimester]Onset: 518463-19-5851MoaykpceAgvcdmlpyah (15 sources)Hemorrhoids; Translations: [Unspecified hemorrhoids]Onset: 41-73-3676ResacspnFygenuqtedalk and screening for infectious disease (4 sources)Encounter for screening for human papillomavirus (HPV); Translations: [Contact with and (suspected)exposure to infections with a predominantly sexual mode of transmission]Onset: 990309-52-5967CmvdmyquLskkmbvxlygh; infection of eye (except that caused by tuberculosis or sexually transmitteddisease) (4 sources)Shwdllpjy23-03-4826EhsrlbmuPqxbiesgr disorders (15 sources)Dysmenorrhea; Translations: [Dysmenorrhea, unspecified]Onset: 329479-22-8743RrnwoltQkzoi complications of (5 sources)Endocrine, nutritional and metabolic diseases complicating , unspecified trimester; Translations: [ENDOCRN NUTR MET DZ COMP PG UNS TRI]Onset: 37-44-4354BecbsqwjRnoyp complications of (2 sources)Thyroid disease in mother complicating , childbirth AND/OR puerperium; Translations: [Endocrine, nutritional and metabolic diseases complicating , unspecified trimester]81-48-3502IjrcimpnImzue complications of (8 sources)Hypothyroidism in ; Translations: [Endocrine, nutritional and metabolic diseases complicating , unspecified trimester]Onset: 565115-18-8346YlrdjygoTxmgs complications of (3 sources)History of gynecological disorder; Translations: [Supervision of with other poor reproductive or obstetric history, unspecified trimester]Onset: 505318-12-0780NyublkhuNsfkf complications of (2 sources) size does not accord with dates; Translations: [Uterine size- date discrepancy, second trimester]89-49-3432GukreqorJelzq endocrine disorders (4 sources)Pnotjnryjxmy01-03-7846VzwigqoNylaa eye disorders (4 sources)Eye goozfhy73-04-4296BwsfpiilBfmyw female genital disorders (4 sources)Lesion of -09-5993MygsglbeVbnvb female genital disorders (1 source)Noninflammatory disorder of vulva; Translations: [Other specified noninflammatory disorders of vulva and perineum]Onset: 52-39-6379IatzgedgZdazo female genital disorders (2 sources)Vaginal discharge; Translations: [Other specified noninflammatory disorders of vagina]49-98-1624UhvqkvayTbeqk gastrointestinal disorders (4 sources)Gxmboklrqvwc06-27-2537AuxuaewlAiewy gastrointestinal disorders (1 source)Digestive system finding; Translations: [Other specified symptoms and signs involving the digestivesystem and abdomen]Onset: 30-45-1780JxeysjstXmufq gastrointestinal disorders (1 source)Constipation, unspecified; Translations: [Constipation, unspecified] Onset: 30-98-8313EnfgnmdcEyvka inflammatory condition of skin (4 sources)Pruritus ani; Translations: [Pruritus ani]Onset: 12-10-6331Vdlpbuwq Other lower respiratory disease (13 sources)H/O: respiratory -81-9830VkiajeikUdtbs nutritional; endocrine; and metabolic disorders (12 sources)Weight tgds86-51-2961VgfqdwzjXxwni nutritional; endocrine; and metabolic disorders (1 source)Abnormal weight loss; Translations: [Abnormal weight loss]Onset: 93-34-6581TptkyzpoMaooj and delivery including normal (20 sources)Encounter for supervision of normal first , first trimester; Translations: [Encounter for supervision of normal , unspecified, unspecified trimester]Onset: 96-26-5931LrtoxxuoJzrui screening for suspected conditions (not mental disorders or infectious disease) (13 sources)Encounter for screening for malignant neoplasm of cervix; Translations: [Encounter for screening, unspecified]Onset: 12-09-2020 EpisodicResidual codes; unclassified (3 sources)Body mass index 20-24 - normal; Translations: [Body mass index (BMI) 21.0-21.9, adult]Onset: 73-68-7943LvphmqctFjusplyk codes; unclassified (1 source)Family history of malignant neoplasm of digestive organ; Translations: [Family history of malignantneoplasm of digestive organs]Onset: 11-30-2022 EpisodicResidual codes; unclassified (11 sources)Family history of cancer of idsfp65-45-8044ThxcfufhGbvxhbcr codes; unclassified (4 sources)Family history of autism; Translations: [Family history of other mental and behavioral disorders]Onset: 448538-12-6319ObkqwyivPjpmeykz codes; unclassified (2 sources)Gestation period, 13 weeks; Translations: [13 weeks gestation of ]16-78-0885AigntwadMggiqfhj codes; unclassified (15 sources)History of previous intrauterine growth restricted ; Translations: [Personal history of other complications of , childbirth and the puerperium]Onset: 257764-10-7044FgspercsCkxoavar codes; unclassified (2 sources)Gestation period, 17 weeks; Translations: [17 weeks gestation of ]00-19-8436AztptitvGbcywwhs codes; unclassified (1 source)Gestation period, 20 weeks; Translations: [20 weeks gestation of ]87-08-4728BcgcyywkCmrvevtf codes; unclassified (7 sources)History of premature rupture of membranes; Translations: [Personal history of other complications of , childbirth and the puerperium]Onset: 811632-68-6212RkppbyqeHisprbcv codes; unclassified (2 sources)Gestation period, 21 weeks; Translations: [21 weeks gestation of ]68-56-9486KlohbaguIboumuil codes; unclassified (2 sources)Personal history of other complications of , childbirth and the puerperium; Translations: [Personal history of other complications of , childbirth and the puerperium]Onset: 37-77-7307SvyvpankWlxcuyop codes; unclassified (1 source)20 weeks gestation of ; Translations: [20 weeks gestation of ]Onset: 58-29-8086TdgaifswVddfmjad codes; unclassified (2 sources)Gestation period, 25 weeks; Translations: [25 weeks gestation of ]01-98-1595DvoyauhbPgllhgav codes; unclassified (2 sources)Gestation period, 28 weeks; Translations: [28 weeks gestation of ]24-38-2334CdifcxkyNaeteuit codes; unclassified (2 sources)Gestation period, 30 weeks; Translations: [30 weeks gestation of ]71-30-7063OhxmushsKaxpiumx codes; unclassified (2 sources)Gestation period, 32 weeks; Translations: [32 weeks gestation of ]69-38-8451RvxpwegrArzncex disorders (20 sources)Hypothyroidism, unspecified; Translations: [Hypothyroidism]Onset: 21-96-4493VaijnzrDeicfai disorders (12 sources)Disorder of thyroid, unspecified; Translations: [Disorder of thyroid gland]Onset: 00-31-6250UjqrldmyUepvmurzernn (13 sources)Body mass index 20-24 - falnqv35-33-9295Hpiqsrdbnano (13 sources)Gud-rxwdav66-27stojvd57-79-4775Raedhwjgfhio (5 sources)Pain of knee -47-1359Kqosmnyykrsb (8 sources)Patient encounter eoqjus33-88-7550Zslpeektcikk (3 sources)Rectum gyhqvkl96-36-5040Wtdsiflusolj (8 sources)Finding of sensation of ziojdrj97-47-6327Jhcolbgcyqlg (1 source)Hx previous FGROnset: 86-74-4635Yoggszb tract infections (13 sources)Acute cystitis; Translations: [Acute cystitis without hematuria] Onset: 87-96-2072Nmssmcnd Past or Other Problems Problem ClassificationProblemDateDocumented DateEpisodic/ChronicEarly or threatened labor (6 sources)Premature uterine contraction; Translations: [False labor before 37 completed weeks of gestation, third trimester]Onset: 04-21-2021 Resolved: 326829-26-4903ZujydmlpIaarj complications of (3 sources)Disorder of ; Translations: [Maternal care for other known or suspected poor growth,unspecified trimester, not applicable or unspecified]Onset: 03-03-2021 Resolved: 277619-96-3036KeteisgcOorzc complications of (3 sources)Short cervical length in ; Translations: [Cervical shortening, third trimester]Onset: 05-19-2021 Resolved: 573712-32-1914PpixwfiiSofkd complications of (2 sources)Endocrine, nutritional and metabolic diseases complicating , second trimester; Translations: [Endocrine, nutritional and metabolic diseases complicating , second trimester]Onset: 99-84-4495CjromggeAfvch female genital disorders (4 sources)Other specified noninflammatory disorders of vagina; Translations: [OTH SPEC NONINFLAMMATORY D/O VAGINA]Onset: 00-24-7184BmlfbinyWnmlteqrmctsxq and other problems of amniotic cavity (3 sources) premature rupture of membranes ; Translations: [ premature rupture of membranes, unspecified as to length of time between rupture and onset of labor, unspecified trimester]Onset: 05-30-2021 Resolved: 854124-79-3961Lrtthept Results Test NameValueInterpretationReference RangeFacilityUrinalysis macro (dipstick) panel (U)on 00-84-7305Drzcxcuzc, UANegativeNegative - 4(70) +++ mg/dLNOMS HealthcareBlood, UANegativeNegative [...] mg/dLNOMS HealthcareNOMS HealthcareUrinalysis macro (dipstick) panel (U)on 67-67-9309Ndicoerws, UA NegativeNegative - 4(70) +++ mg/dLNOMS HealthcareBlood, [...] HealthcareNOMS HealthcareUS OB FOLLOW UP TRANSABDOMINAL APPROACHon 28-07-3801WB OB FOLLOW UP TRANSABDOMINAL APPROACH FINDINGS: A [...] Delivery: 03/23/25 Gestational Age as of 12/10/2024: 41s8pMlvgqtsknl macro (dipstick) panel (U)on 89-67-8467Aihfjjskr, UANegativeNegative - 4(70) +++ mg/dLNOMS HealthcareBlood, UANegativeNegative [...] UA1.0101 - 1.03NOCA HealthcareUrobilinogen, UA0.20.2 - 12 mg/dLNOSSM [facility] Health CenterNOCA HealthcareGLUCOSE TOLERANCE 3 HOURon 45-79-7063XCLUZZV TOLERANCE 3 HOURHighmg/dL NOM HealthcareComment on above:GLU FAST 89 (<95) Col: 12/12/24 0842 GLU 1HR 178 (<180) Col: 12/12/24 0949 GLU 2HR 156H (<155) Col: 12/12/24 1041 GLU 3HR 103 (<140) Col: 12/12/24 1147 Interpretation and review of laboratory resultsAbnormalNOCA HealthcareCLINISYNC NOM HealthcareALL CBC WITH AUTO DIFFon 30-45-6129DOMEBNHHI ABSOLUTE MEIV3MWSMSSM [facility] CenterBasophils/100 WBC (Bld)0.3 %0.2 - 2.0 %NOMS HealthcareEosinophils/100 WBC (Bld)0.5 %Low0.9 - 7.0 %[facility] CenterErythrocyte distribution width (RBC) [Ratio]12.4 %11.0 - 15.0 %NOMSainte Genevieve County Memorial HospitalHematocrit (Bld) [Volume fraction]32.4 %Low36.0 - 48.0 %[facility] CenterHemoglobin (Bld) [Mass/Vol]10.8 g/dLLow12.0 - 16.0 g/dLNOSSM [facility] CenterIMMATURE GRANULOCYTES ABS AUTO0.03NOSSM [facility] Immature granulocytes/100 WBC (Bld)0.3 %0.0 - 0.5 %[facility] CenterInterpretation and review of laboratory resultsAbnormalCrossroads Regional Medical CenterLYMPHOCYTES ABSOLUTE AUTO1.3NOSSM [facility] CenterLymphocytes/100 WBC (Bld)14.4 %Low20.5 - 60.0 %[facility] CenterH (RBC) [Entitic mass]33.2 pg26.7 - 34.0 pgNOSSM DePaul Health CenterMCHC (RBC) [Mass/Vol]33.3 g/dL29.9 - 35.2 g/dLNOCA HealthcareMCV (RBC) [Entitic vol]99.7 fL High81.0 - 99.0 fLNOCA HealthcareMONOCYTES ABSOLUTE AUTO0.4NOMS Healthcare Monocytes/100 WBC (Bld)4.6 %1.7 - 12.0 %NOMS HealthcareNEUTROPHILS ABSOLUTE AUTO 7HighNOCA HealthcareNeutrophils/100 WBC (Bld)79.9 %High43.0 - 75.0 %NOMS HealthcarePlatelet mean volume (Bld) [Entitic vol]10.5 fL9.5 - 13.5 fLNOCA HealthcareTBH EO #0NOMS HealthcareTBH SMW364NBHS HealthcareTBH RBC3.25LowNOMS HealthcareTBH WBC8.8NOCA HealthcareCLINISYNCNOMS HealthcareUrinalysis macro (dipstick) panel (U)on 55-50-0786Zddsfqhsv, UANegativeNegative - 4(70) +++ mg/dL NOMS HealthcareBlood, [...] HealthcareNOCA Healthcare Urinalysis macro (dipstick) panel (U)on 62-53-6328Azkiutcmu, UANegativeNegative - 4(70) +++ mg/dLNOMS HealthcareBlood, UANegativeNegative [...] 12 mg/dLNOCA HealthcareNOCA HealthcareALL THYROID STIM HORMONEon 50-84-4216YHT Qn2.68 m[IU]/L [facility] CenterCLINISYNCNOMS HealthcareAFP, SERUM, OPEN SPINA BIFIDAon 87-66-2551AVU MOM0.82.[facility] CenterAFP VALUE34.7 ng/mL.[facility] HealthcareCOMMENT: Comment.[facility] CenterComment on above:Alie Moon, Ph.D., [facility] Director References: Available Upon Request. Multiples Of Median Cutoffs For AFP Elevations Murphy 2.5 Black 2.8 IDD 2.0 Twins 4.5 Abbreviation Definitions IDD - Insulin Dep Diabetes OSBR - Open Spina Bifida Risk For further inquiries contact [email or web address] [facility] at [phone]. This test was developed and its performance characteristics determined by [employer]. It has not been cleared or approved by the Food and Drug Administration. Performed at: [facility] [address] [place], [place] [id number] Personal Lines Sales Rep: Pily Meraz [facility], Phone: [phone] GEST. AGE ON COLLECTION DATE15.3. weeksNOCA HealthcareGESTAT. AGE BASED ONLMP. [facility] HealthcareComment on above:Recalculations are not recommended when gestational dating by LMP and ultrasound are within 10 days. INSULIN DEP DIABETESNo.[facility] HealthcareINTERPRETATIONComment.[facility] Comment on above:Interpretation: Screen [...] Customer Services to discuss available options. The [employer] recommends amniocentesis be offered to women age 35 and older. MATERNAL AGE AT EDD25.1. yrNOCA HealthcareMULTIPLE GESTATIONNo.[facility] Healthcare OSBR RISK 1 [id number].[facility] HealthcareRACECaucasian.[facility] HealthcareRESULTSReport. [facility] HealthcareTEST RESULTS:Negative.[facility] CenterApqundaldiUHSDCB791. lbsNOCA HealthcarePREGNANCY N N LMP [id number] 2 17 N 1 Y 134 N N N N N White/ CLINISYNCNOSSM DePaul Health CenterUrinalysis macro (dipstick) panel (U)on 10-15-2024 Bilirubin, UANegativeNegative - 4(70) +++ mg/dLNOCA HealthcareBlood, UANegative Negative - 50 Cedric/mcLNOCA HealthcareClarity, UAClearNOCA HealthcareColor, UA YellowNOMS HealthcareGlucose, UANegativeNegative - 2000(110) ++++ mg/dLBRIGHAM CITY COMM[facility] HealthcareInterpretation and review of laboratory resultsNormalCrossroads Regional Medical Center Ketones, UANegativeNegative - 160(16) ++++ mg/dLBRIGHAM CITY COMMUNITY [facility] HealthcareLeukocytes, UA NegativeNegative - 500+++ Ayana/mcLNOCA HealthcareNitrite, UANegativeNegative - PositiveNOCA HealthcarepH, UA65 - 9NOCA HealthcareProtein, UANegativeNegative - 2000(20) ++++ mg/dLNOCA HealthcareSpec Grav, UA1.0151 - 1.03NOCA Healthcare Urobilinogen, UA0.20.2 - 12 mg/dLThree Rivers Healthcare HealthcareGLUCOSE 1 HOURon 58-19-6309Iuutyjd [Mass/Vol]108 mg/dLNINF - 130 mg/dLBRIGHAM CITY COMMUNITY [facility] HealthcareCLINISYNC [facility] CenterALL MISCELLANEOUS TESTon 37-37-8553DLICCOOAJKGVQ TESTCOMMENT.[facility] HealthcareComment on above:Test Ordered: [id number] Parvovirus B19, Human, IgG/IgM Parvovirus B19, IgG 0.1 index BN Reference Range: 0.0-0.8 Negative <0.9 Equivocal 0.9 - 1.1 Positive >1.1 Parvovirus B19, IgM 0.1 index Reference Range: 0.0-0.8 Negative <0.9 Equivocal 0.9 - 1.1 Positive >1.1 Performed at: [address] [id number] Personal Lines Sales Rep: Darion Moon MD, Phone: [phone] Performed at: [address] [id number] Personal Lines Sales Rep: Madi Maloney PhD, Phone: [phone] Parvovirus B19 (Human), IgG, IgM CLINISYNCNOMS HealthcareALL MISCELLANEOUS TESTon 95-78-2165PPLYQPQWANXCV TEST COMMENT.NOMS HealthcareComment on above:Test Ordered: [id number] Parvovirus B19, Human, IgG/IgM Parvovirus B19, IgG 0.1 index Reference Range: 0.0-0.8 Negative <0.9 Equivocal 0.9 - 1.1 Positive >1.1 Parvovirus B19, IgM 0.1 index Reference Range: 0.0-0.8 Negative <0.9 Equivocal 0.9 - 1.1 Positive >1.1 Performed at: [address] [id number] Personal Lines Sales Rep: Darion Moon MD, Phone: [phone] Performed at: [address] [id number] Personal Lines Sales Rep: Madi Maloney PhD, Phone: [phone] Parvovirus B19 (Human), IgG, IgM CLINISYNCNOMS HealthcareALL CBC WITH AUTO DIFFon 14-51-0655HOUNPPWSC ABSOLUTE UPSN4ZNZC HealthcareBasophils/100 WBC (Bld)0.5 %0.2 - 2.0 %[facility] Eosinophils/100 WBC (Bld)0.5 %Low0.9 - 7.0 %NOMS HealthcareErythrocyte distribution width (RBC) [Ratio]12.3 %11.0 - 15.0 %NOMS HealthcareHematocrit (Bld) [Volume fraction]38.5 %36.0 - 48.0 %NOMS HealthcareIMMATURE GRANULOCYTES ABS AUTO0.02NOCA HealthcareImmature granulocytes/100 WBC (Bld)0.3 %0.0 - 0.5 % [facility] CenterInterpretation and review of laboratory resultsAbnormalNOCA HealthcareLYMPHOCYTES ABSOLUTE AUTO1.6NOMS HealthcareLymphocytes/100 WBC (Bld)21 %20.5 - 60.0 %[facility] CenterH (RBC) [Entitic mass]33.5 pg26.7 - 34.0 pgWestern Missouri Mental Health CenterHC (RBC) [Mass/Vol]35.6 g/pUByzv29.9 - 35.2 g/dLWestern Missouri Mental Health CenterV (RBC) [Entitic vol]94.1 fL81.0 - 99.0 fLCrossroads Regional Medical CenterMONOCYTES ABSOLUTE AUTO 0.4NOMS HealthcareMonocytes/100 WBC (Bld)5.1 %1.7 - 12.0 %[facility] NEUTROPHILS ABSOLUTE AUTO5.6NOSSM DePaul Health CenterNeutrophils/100 WBC (Bld)72.6 %43.0 - 75.0 %[facility] Medical CenterPlatelet mean volume (Bld) [Entitic vol]11.1 fL9.5 - 13.5 fLCrossroads Regional Medical CenterTBH EO #0NOSSM DePaul Health CenterTBH JNE884HHBMHarry S. Truman [facility] RBC4.09Low [facility] WBC7.8Cross[facility] Medical CenterCLINISYNCCBC and differentialon 64-85-0805Yidosxpkgw (Bld) [Volume fraction]39 %36 - 46 %[facility] Platelets (Bld) [#/Vol]211 10*3/uL150 - 399 10*3/uLProMedica Health SystemWBC (Bld) [#/Vol]7.8 10*3/mL3.3 - 10.0 10*3/mLSt Johnsbury HospitalMedica Martins Ferry Hospital SystemDrug Screen, Urineon 90-35-2929Blvtoailhth/MethamphetamineNegativeProMedica Health System BarbituratesNegativeProMedica Health SystemBenzodiazepinesNegativeProMedica Health SystemCocaine MetaboliteNegativeSt Johnsbury HospitalMedica Health SystemMethadoneNegative ProMedica Health SystemOpiatesNegativeSt Johnsbury HospitalMedica Health SystemOxycodoneNegative ProMedica Health SystemPhencyclidineNegativeProMedica Health SystemThc Marijuana, UrineNegativeCleveland Clinic Akron GeneralHBV surface Ag IA Qlon 08-21-2024 Hepatitis B Surface AntigenNegativeCleveland Clinic Akron GeneralHCV Ab IA Qlon 76-37-0635LHV Ab Ql (S)Non-ReactiveCleveland Clinic Akron GeneralHIV 1+2 Ab+HIV1 p24 Ag IA Qlon 87-61-9617QCR 1&2 AB/AGNon-ReactiveCleveland Clinic Akron GeneralHemoglobin A1con 85-18-0107GjA5k (Bld) [Mass fraction]5.6 %4.0 - 6.0 %[facility] GeneralLaboratory - Hematology and Cell countson 82-34-4248Gmpihikrul (Bld) [Mass/Vol]13.7 g/dL12.0 - 16.0 g/dLCrossroads Regional Medical CenterNo Panel Informationon 81-40-5818QXUU HealthcareRubella IGG immune statuson 79-19-5451Nendpmq immune IgGimmuneCleveland Clinic Akron GeneralT. pallidum IgG+IgM IA Ql (S)Ordered By: Nadira Salazar on 55-30-8827HecnipfkVcd-ReactiveCleveland Clinic Akron GeneralTSHon 97-39-2781Qtcdski Stimulating (3Rd Generation) Hormone/ Tsh7.721PProMedica Flower HospitalType and screenon 06-01-7377Rzj/Rh(D)PositiveCleveland Clinic Akron GeneralHCG ( test) Ql (U)on 56-52-9220Cbvkmxzbftvhgc and review of laboratory resultsAbnormalCrossroads Regional Medical CenterPreg Test, UrPositiveNegativeThree Rivers Healthcare HealthcareUS OB TRANSVAGINALon 89-16-2860ML OB TRANSVAGINALEXAM: US OB TRANSVAGINAL HISTORY: Dating. [...] II, MD, PHD at 20-Aug-2024 10:22:40 AM [facility]-Italian TeleradiologyNormalNot AvailableComment on above:Order Comment: US OB TRANSVAGINAL No LMP recorded.Urinalysis macro (dipstick) panel (U)on 55-97-3982Envftqjer, UA NegativeNegative - 4(70) +++ mg/dLNOMS HealthcareBlood, [...] - 12 mg/dLNOMS HealthcareNOMS HealthcareAmbulatory Visit Summaryon 36-24-8192Ynvvrliwkw Visit SummaryAmbulatory Visit Summary YANA CHURCH :2000 [...] EDT With: Marta Rivas Where: [facility] [address] [place] [address], [address] [place] [id number] Medications What How Much When Why Instructions [...] you for choosing us for your care. [facility] Medicine Office/Clinic Noteon 47-48-6664Eybldo Medicine Office/Clinic NoteFasymmes hospital Medicine Office/Clinic Note Chief Complaint Establish [...] anymore, managed with tylenol Social History: Occupation: [employer] Family life: home with and daughter Diet: no restrictions Caffeine: 1 cup coffee/day Exercise: active lifestyle Alcohol use: denies Drug use: denies Smoking status: denies Health Maintenance: Routine labs: thyroid labs 06/2024, declines further labs Pap (21-64yo): 04/2023 Specialists: Boilermaking Supervisor: krysta Dentist: krysta OBGYN: Joanna Review of [...] other medications. Recheck TSH/T (more content not included)...[facility] Comment on above:Result Comment: Electronically Signed By: Marta Rivas\.br\Date and Time Signed: 07/09/24 08:35 EDTAmbulatory Visit Summaryon 47-18-7860Hslbiddqdx Visit SummaryAmbulatory Visit Summary YANA CHURCH :2000 [...] EDT With: Marta Rivas Where: [facility] [address] [facility], [facility] [place] [address]- Medications What How Much When Why Instructions New amoxicillin-clavulanate (Augmentin 875 mg-125 mg Tab) 1 Tablets By Mouth Every 12 hours Acute sinusitis Duration: 10 Days Pickup at [facility] Unchanged levothyroxine (Synthroid 100 mcg Tab) 1 Tablets By Mouth Every day Pharmacy Information [facility]: [address] [place], [place] [id number] [phone] Allergies No Known Allergies Problems Ongoing - [...] you for choosing us for your care. [facility] Medicine Office/Clinic Noteon 89-10-6605Xazxoe Medicine Office/Clinic NoteFasymmes hospital Medicine Office/Clinic Note Chief Complaint possible [...] for 10 day(s), 20 tab(s), Refill(s) 0, [facility], 166, cm, 07/05/24 15:34:00 EDT, Height/Length [...] When Contact Information Julienne BARTLETT, Ham Montano, [facility], [address], [address] [address] [phone] Additional Instructions: as scheduled with Marta Patient Education Sinus Infection, Adult, Ndra-nm-Kqrk How to Perform a Sinus Rinse, Hwpa-oi-Wqzi Problem List/Past Medical History Ongoing Acute sinusitis [...] poliovirus vaccine, inactivated (more content not included)...Normal [facility] HospitalComment on above:Result Comment: Electronically Signed By: Julienne BARTLETT, Ham Montano\.br\Date and Time Signed: 07/05/24 16:06 EDT CHEMISTRYOrdered By: SYSTEM SYSTEM on 36-92-2199Qcjf T4 [Mass/Vol]0.82 ng/dL Normal0.58 - 1.64 ng/dLRemisol ChemTSH Qn3.09 m[IU]/LNormal0.34 - 5.60 mcIU/mL Remisol ChemFree T4on 87-13-8639Vtso T4 [Mass/Vol]0.82 ng/dLNormal0.58-1.64 [facility] HospitalComment on above:Performed By: #### [id number] #### [facility] [address] [place], [place] [address]VUXgj 61-94-7321YKW Qn3.09 m[IU]/LNormal0.34-5.60Wayne HospitalComment on above:Performed By: #### [id number] #### [facility] [address], [place] [address]NJY EXTRACTION AND HOLDon 92-92-5668KuxoyiPnckkv Puregene Reagents from QiagenInvalid Interpretation [facility] on above:Order Comment: Release to patient->AutomaticNucleic Acid Concentration 273.2 ng/uLInvalid Interpretation [facility] on above: Order Comment: Release to patient->AutomaticNucleic Acid Purity1.90Invalid Interpretation Code1.70-2.10[facility] on above:Order Comment: Release to patient->AutomaticSignature .Invalid Interpretation [facility] on above:Order Comment: Release to patient->AutomaticStorage and Special InstructionsInvalid Interpretation [facility] on above:Order Comment: Release to patient->AutomaticResult Comment: The extracted DNA is stored in the [facility] at -70 degrees C and is being held for future testing. If there are any questions regarding this sample, please contact the [facility] at [phone].Total DNA Yield82.0 ugInvalid Interpretation [facility] on above:Order Comment: Release to patient->AutomaticTotal Volume PDM481 ulInvalid Interpretation Code [facility] on above:Order Comment: Release to patient->AutomaticIGP,APTIMA HPV,AGE GDLNon 53-90-6676WRE GDLN ACOG TESTINGNote. NOMS HealthcareComment on above:TESTS RESULT FLAG UNITS REF RANGE LAB Clinician Provided Cytology Information Source.............Cervix;Endocervix No. of containers..01 ThinPrep Vial Age Maicolo ACOG Francheska... FLAG LEGEND: L-Low Normal,H-High Normal,LL-Alert Low,HH-Alert High <-Panic Low,>-Panic High,A-Abnormal,AA-Critical Abnormal Performed at: 01 = Lab[address] [place] [address] Sugey Torres MD, IGP, RFX APTIMA HPV ASCUNote.[facility] HealthcareComment on above:TESTS RESULT FLAG UNITS REF RANGE LAB DIAGNOSIS: 02 NEGATIVE FOR INTRAEPITHELIAL LESION OR MALIGNANCY. Specimen adequacy: 02 Satisfactory for evaluation. Endocervical and/or squamous metaplastic cells (endocervical component) are present. Performed by: 02 Yudy Rhoades, Silk Crepe Machine Operator ([facility]) . 02 Note: Note 02 [...] <-Panic Low,>-Panic High,A-Abnormal,AA-Critical Abnormal Performed at: [address] [address] Sugey Torres MD, Performed at: = - [facility] [address] [id number] Personal Lines Sales Rep: Sugey Torres MD, Phone: [phone] Performed at: - [address] [id number] Personal Lines Sales Rep: Sugey Torres MD, Phone: [phone] BRUSH-SPATULA CERVIX ENDOCERVIX CLINISYNCNOMS HealthcareCoding Summary.on 51-68-9876Mfgsry Summary. OQBTTqnq16VTw5jPq+PGhlYWQ+SA9HJPYiL85raAGqzL6nS5EONRjHLxxkKJLODMdIQbHakyNyIT1vtG NjZXJu [file] O32ozWYmc7E8H (more content not included)...NormalWayne Hospital CHEMISTRYOrdered By: SYSTEM SYSTEM on 41-28-7280Knih T4 [Mass/Vol]0.92 ng/dL Normal0.58 - 1.64 ng/dLRemisol [facility] Qn3.37 m[IU]/LNormal0.34 - 5.60 mcIU/mL Remisol ChemConsent for Treatmenton 01-13-0797Tivxvtv for Treatment [id number]#1.00TIFFNormalWayne HospitalFree T4on 58-23-1743Gxmq T4 [Mass/Vol]0.92 ng/dLNormal0.58-1.64Wayne HospitalComment on above:Performed By: #### [id number] #### Barry [facility] [address] [place] [address]FUZjl 01-33-9743FDX Qn3.37 m[IU]/LNormal0.34-5.60Wayne HospitalComment on above:Performed By: #### [id number] #### Jhonny [facility] [address] [place], [place] [address]Jqgssgsicv Visit Summaryon 15-45-7292Tcqieiwmzs Visit Summary YANA CHURCH :2000 Visit Date:08/08/2023 [...] you for choosing us for your care. [facility] Medicine Office/Clinic Noteon 65-35-2813Mqelxr Medicine Office/Clinic NoteChief Complaint f/u for hypothyroid [...] hemorrhoids) Resolved, no additional complaints. saw [facility] for screening colonoscopy/diagnostic colonoscopy due to [...] with voice recognition artificial intelligence software, specifically Nacuii, Bizpora and or [employer]. Substitutions may have occurred due to [...] Social History Alcohol Curren (more content not included)...[facility] HospitalComment on above:Result Comment: Electronically Signed By: [...] Follow these instructions at home: ? Take mjfd-ary-bmcutir and prescription medicines only as told by [...] provider. Document Revised: 03/09/2022 Document Reviewed: 03/09/2022 [employer] Patient Education ? 2022 Videofropper. Gastroenterology Hemorrhoids Hemorrhoids are swollen veins in and around the rectum or anus. There are two types of hemorrhoids: ? Internal hemorrhoids. These occur in the veins that are just inside the rectum. They may poke through to the outside and become irritated and painful. ? External hemorrhoids. These occur in the veins that are (more content not included)...NormalWayne HospitalPAP [id number] 05-20-2023. trachomatis rRNA FRANSISCO+probe Ql (Cvx)NegativeInvalid Interpretation CodeNegative Wayne HospitalComment on above:Performed By: #### [id number] ####[facility] Crkuoiedgi407 [facility] healthamer[facility] [id number] Cytology report Cyto stain Doc (Cvx/Vag)NoteInvalid Interpretation [facility] HospitalComment on above:Result Comment: TESTS RESULT FLAG UNITS REF RANGE LAB Clinician Provided Cytology Information Source.............Cervix No. of containers..01 ThinPrep Vial DIAGNOSIS: 01 NEGATIVE FOR INTRAEPITHELIAL LESION OR MALIGNANCY. Specimen adequacy: 01 Satisfactory for evaluation. Endocervical and/or squamous metaplastic cells (endocervical component) are present. Performed by: 01 Erum Mckenzie, Silk Cre[employer] Machine Operator ([facility]) . 01 Note: Note 01 [...] <-Panic Low,>-Panic High,A-Abnormal,AA-Critical Abnormal Performed at: [address] [address] Sugey Torres MD, Iwfbdohsi By: #### [id number] ###Tunde [facility] Caabtulsy[address], [id number] 16+18+31+33+35+39+45+51+52+56+58+59+66+68 DNA Probe+sig amp Ql (Cvx)Negative Invalid Interpretation CodeNegativeFisher Saint Luke InstituteComment on above: Result Comment: This nucleic acid amplification test detects fourteen high-risk HPV types (16,18,31,33,35,39,45,51,52,56,58,59,66,68) without differentiation.Performed By: #### [id number] ####Barry [facility] Nocrcljzdk705 [facility], [id number]. gonorrhoeae rRNA FRANSISCO+probe Ql (Cvx) NegativeInvalid Interpretation CodeNegTrinity Health System East CampusComment on above:Performed By: #### [id number] ####[facility]ry [facility] Mdmxrlnlyx017 [facility] [id number]. vaginalis rRNA FRANSISCO+probe Ql (Unsp spec)NegativeInvalid Interpretation CodeNegativeWayne Hospital Comment on above:Result Comment: Performed at: [facility] [address] [place], [place] [id number] MD Brian Mayes Performed at: =G [facility] [place] [address] [place], [place] [id number] MD Brian MayesPerformed By: #### [id number] ####[facility] Offlnuth[address] [place] [address] [id number] Medicine Office/Clinic Noteon 66-66-9033Aywprp Medicine Office/Clinic NoteChief Complaint Pap, f/u UTI [...] was performed without the assistance of medical reimbursement specialist as witness Pelvic Exam: Vulva: normal [...] up every 3-5 years based on results LADDER OPERATOR referral if needed for further testing [...] placed F/u 6 months (more content not included)...NormalWay[facility] Hospital Comment on above:Result Comment: Electronically Signed By: Ya Wang\.irvin\Date and Time Signed: 05/16/23 15:38 ESTPAP [id number] 05-16-2023 Gynecological Body SiteCERVIXNormalWayne HospitalComment on above: Performed By: #### [id number] ####Jhonny [facility] Dnxqlcx[address] [id number] Educationon 53-84-4279Gmvfdqb Education Obstetrics and Gynecology Pap Test Why [...] including vitamins, herbs, eye drops, creams, and bpju-mic-dtcapxx medicines. ? Any bleeding problems you have. [...] provider. Document Revised: 06/05/2021 Document Reviewed: 06/05/2021 [employer] Patient Education ? 2022 Videofropper. Oncology Cancer Screening for Women A cancer [...] to asbestos. How i (more content not included)...NormalWayne HospitalConsent for Treatmenton 38-41-2982Uvuswcz for Treatment [id number]#1.00TIFFNormalWayne HospitalUA With Cult Reflexon 41-44-9673Lgcpxmgww Ql (U)NegativeNormalNegative Wayne HospitalComment on above:Performed By: #### [id number] ####[facility] [address] [place] [address] Clarity (U)CLEARNormalClearWayne HospitalComment on above:Performed By: #### [id number] ####[place] [address] [place], [place] [address]Artsh (U)YELLOWNormalYellowWayne Hospital Comment on above:Performed By: #### [id number] ####[facility] [address] [place], [place] [address]Yxlalkuspv cells.squamous LM.HPF (Urine sed) [#/Area]8-5Yolrfp5-2Rotspx [facility] InstituteComment on above: Performed By: #### [id number] ####[facility] [address] [place], [place] [address]Lmbjljn Test strip (U) [Mass/Vol]NegativeNormal NegativeWayne HospitalComment on above:Performed By: #### [id number] ####[facility] [address] [place] [address] Hemoglobin Ql (U)NegativeNormalNegativeWayne HospitalComment on above:Performed By: #### [id number] ####[facility] E[address]kxrnc[address] [place], [place] [address]Aefcdmk (U) [Mass/Vol]NegativeNormalNegTrinity Health System East CampusComment on above:Performed By: #### [id number] ####[address] [address] Pevely.plasma/Pevely.RBC (Bld) [Mass ratio]2-4Tztcjn7-7Pntmur [facility] InstituteComment on above:Performed By: #### [id number] ####[address] [address]Ntgveok Ql (U)NegativeNormal NegativeWayne HospitalComment on above:Performed By: #### [id number] ####[address] [address]sI (U)6.0 [pH]Invalid Interpretation Code5.0-9.0Wayne HospitalComment on above:Performed By: #### [id number] ####[address] [address]Uooohrj (U) [Mass/Vol]NegativeNormal NegativeWayne HospitalComment on above:Performed By: #### [id number] ####[address] [address] Specific gravity (U) [Rel density]>=1.030Invalid Interpretation Code1.005-1.030 Wayne HospitalComment on above:Performed By: #### [id number] ####[address] [address]Tayg of Urine collection methodClean CatchNormalWayne HospitalComment on above:Performed By: #### [id number] ####[address] [address]Xrckkjbioyqm Qn (U)0.2 {Mehdi'U}/dLNormal0.0-1.0 Wayne HospitalComment on above:Performed By: #### [id number] ####[address] [address]GFL Auto Ql (U)NegativeNormalNegativeWayne HospitalComment on above: Performed By: #### [id number] ####[address] [place], [place] [address]AWL LM.HPF (Urine sed) [#/Area]6-7Yswuta3-0Yhqedr [facility] InstituteComment on above:Performed By: #### [id number] ####Jhonny [facility] [address]gc[address] [place], [place] [address]TPALPTZBPO Ordered By: Alphonso Wang on 56-39-1212Odwgnrmil Ql (U)Negative (03/24/23 11:15 AM)NormalNegativeAMERICAN HOSPITAL ASSOCIATION UA Auto SSClarity (U)Clear (03/24/23 11:15 AM)NormalClearFMEMORIAL H[facility] UA Auto SSColor (U)Yellow (03/24/23 11:15 AM)NormalYellowAMERICAN HOSPITAL ASSOCIATION UA Auto SSEpithelial cells.squamous LM.HPF (Urine sed) [#/Area]0-2 /HPFNormal0-2/HPFAMERICAN HOSPITAL ASSOCIATION UA Auto SSGlucose Test strip (U) [Mass/Vol]Negative (03/24/23 11:15 AM)NormalNegativeAMERICAN HOSPITAL ASSOCIATION UA Auto SSHemoglobin Ql (U)Negative (03/24/23 11:15 AM)NormalNegativeAMERICAN HOSPITAL ASSOCIATION UA Auto SSKetones (U) [Mass/Vol]Negative (03/24/23 11:15 AM)NormalNegativeAMERICAN HOSPITAL ASSOCIATION UA Auto SSLithium.plasma/Pevely.RBC (Bld) [Mass ratio]0-3 /HPFNormal0-3/HPFAMERICAN HOSPITAL ASSOCIATION UA Auto SSNitrite Ql (U)Negative (03/24/23 11:15 AM)NormalNegativeAMERICAN HOSPITAL ASSOCIATION UA Auto SSpH (U)6.0 *NA* (03/24/23 11:15 AM)Invalid Interpretation Code5.0 - 9.0AMERICAN HOSPITAL ASSOCIATION UA Auto SSProtein (U) [Mass/Vol]Negative (03/24/23 11:15 AM)NormalNegativeAMERICAN HOSPITAL ASSOCIATION UA Auto SSSpecific gravity (U) [Rel density] >=1.030 *NA* (03/24/23 11:15 AM)Invalid Interpretation Code1.005 - 1.030AMER[facility]OSPITAL ASSOCIATION UA Auto SSUA Spec DescClean Catch (03/24/23 11:15 AM)NormalAMERICAN HOSPITAL ASSOCIATION UA Auto SSUrobilinogen Qn (U)0.3682402 {Mehdi'U}/dLNormal0.0 - 1.0 EU/dLAMERICAN HOSPITAL ASSOCIATION UA Auto SSWBC Auto Ql (U)Negative (03/24/23 11:15 AM)NormalNegativeAMERICAN HOSPITAL ASSOCIATION UA Auto SSWBC LM.HPF (Urine sed) [#/Area]0-5 /HPFNormal0-5/HPFAMERICAN HOSPITAL ASSOCIATION UA Auto SST3 Freeon 26-13-9535Hvuk T3 [Mass/Vol]2.9 pg/mL Invalid Interpretation Code2.0-4.4Fisher [facility] InstituteComment on above: Result Comment: Performed at: [facility] [address] [id number] PhD Haider BarrazaPerformed By: #### [id number], [id number], [id number] ####Barry [facility] [address] [place], [place] [address]XU Retroperitoneal Completeon 90-89-8853BB Retroperitoneal CompleteExam Date/Time: 03/22/2023 09:49 EST Reason [...] Taylor MD Transcribed by: RAZIA Technologist: Hussain [facility] Luke InstituteCHEMISTRY Ordered By: SYSTEM SYSTEM on 75-25-0508Mxvd T4 [Mass/Vol]1.10 ng/dLNormal0.58 - 1.64 ng/dLRemisol ChemTSH Qn0.90 m[IU]/LNormal0.34 - 5.60 mcIU/mLRemisol Chem Consent for Treatmenton 02-30-6131Grxrxrc for Treatment [id number]#1.00TIFFTriHealth Bethesda North HospitalFree T4on 80-17-6285Nznd T4 [Mass/Vol]1.10 ng/dLNormal0.58-1.64Wayne HospitalComment on above:Performed By: #### [id number], [id number], [id number] ####[facility] [address] [place], [place] [address]VCKpn 73-23-7264DWQ Qn0.90 m[IU]/LNormal0.34-5.60Wayne HospitalComment on above:Performed By: #### [id number], [id number], [id number] ####[facility] [address] [place] [address]Y Urineon 18-97-2663Fvcnkcpg identified Cx Nom (U)Microbiology PROCEDURE: Urine Culture [...] Locations R1: This test was performed at: [facility], [address] [place] [address], [id number] [place] [address], LnaidxByjgaiTriHealth Bethesda North HospitalComment on above:Performed By: #### [id number] ####[facility]ry [facility] [address]kkkkbnc[address] Ashtonst[address] joseph's healthamericoAUST[place], [place] [address]Mwqlii Medicine Office/Clinic Noteon 84-15-7388Jjkpoo Medicine Office/Clinic NoteChief Complaint 2 wk f/u [...] due to her gallbladder. She saw a supervisor sign shop in 11/2022. She is able to schedule [...] office today shows: Negat (more content not included)...[facility] Bethesda North HospitalComment on above:Result Comment: Electronically Signed By: Ya Wang\.br\Date and Time Signed: 03/11/23 06:06 EST\.br\Electronically Co-Signed By: Annetta Blackburn\.br\Date and Time Co-Signed: 03/09/23 12:22 ESTAmbulatory Visit Summaryon [id number] Visit Summary YANA CHURCH :2000 Visit Date:03/09/2023 Ambulatory Visit Instructions Your Diagnosis BMI 21.0-21.9, adult Feeling of incomplete bladder emptying Other cystitis with hematuria Hypothyroidism Tests Performed Urnls Dip Stick Auto w/o Microscopy POC 35385 Your Care Team Attending Physician - Ya [...] EDT With: Ya Wang [facility]Rec[facility]TI (urinary tract infection), pp_set_radiology_subspecialty, [facility]\.br\ Medicati ons\.br\ What How Much When Why Instructions\.br\ New cephalexin (Keflex 500 mg Cap) 1 Capsules By Mouth 4 times a day Feeling of incomplete bladder emptying Recurrent UTI (urinary tract infection) Duration: 7 Days Pickup at [facility]\.br\ New phenazopyridine (Pyridium 200 mg Tab) 1 Tablets By Mouth 3 times a day Feeling of incomplete bladder emptying Recurrent UTI (urinary tract infection) Duration: 3 Days Pickup at [facility]\.br\ Unchanged levothyroxine (Synthroid 112 mcg Tab) [...] instructions Prior to colonoscopy. \.br\ Pharmacy Information\.br\ [facility]: [address] [place], [place] [id number] [phone]\.br\ Test Results\.br\ Urnls Dip Stick Auto w/o Microscopy POC 83093 (03/09/2023)\.br\ Bilirubin Urine Dipstick - Negative\.br\ Blood Urine Dipstick - Trace-intact\.br\ Glucose Urine Dipstick - Negative\.br\ Ketones UrineDipstick - Negative\.br\ Leukocytes Urine Dipstick - Trace\.br\ Nitrite Urine Dipstick - Negative\.br\ Protein Urine Dipstick - Negative\.br\ Specific [place] Urine Dipstick - 1.020\.br\ Urine Appearance Urine [...] including vitamins, herbs, eye drops, creams, and xnnn-khk-dwisfum medicines.\.br\ ? \.br\ Whether you are or [...] nerves are communicating with your muscles.\.br\ What [facility] HospitalPatient Educationon 32-07-0606Smojabx Education Endocrinology Hypothyroidism Hypothyroidism is when the [...] Follow these instructions at home: ? Take ehoh-chn-vhdsaat and prescription medicines only as told by [...] provider. Document Revised: 03/09/2022 Document Reviewed: 03/09/2022 [employer] Patient Education ? 2022 Videofropper. Obstetrics and Gynecology Urinary Tract Infection, Adult A urinary tract infection (UTI) is an infection of any part of the urinary tract. The urinary tractincludes the kidneys, ureters, bladder, and urethra. These organs make, store, and get rid of urinein the body. An upper UTI affects the ureters and kidneys. A lower UTI affects the bl (more content not included)...[facility] HospitalPhysician Referralon 07-57-5016Cqkmlypqg [id number]#[id number] [facility] HospitalProvider Letteron [id number] Letter March 02, 2023 YANA CHURCH [address] [place] [id number] : [address] Clay Waters is know on your insurance & we are able to schedule your EGD & Colonoscopy. Please call us at [phone] at your [facility] convenience to schedule your procedure. Thank you for your prompt attention to this matter. Sincerely, [employer] [facility] Dig[facility]ive [facility]Rem[facility] 03-02-2023 Reminders From: Erum Gold To: BALLAD [...] letter to patient to call office to [facility] Urineon 02-75-3943Crcxjexu identified Cx Nom (U)Microbiology PROCEDURE: Urine Culture [...] Locations R1: This test was performed at: [facility], [address] [place] [address], [facility] , , YzivtkMubfpfTriHealth Bethesda North HospitalComment on above:Performed By: #### [id number] ####[facility] [address] [place] [address] Medicine Office/Clinic Noteon 26-52-5283Rympls Medicine Office/Clinic NoteChief Complaint UTI symptoms HPI [...] color was orange in appearance due to ovxj-psa-lpqsmox meds she was taking, normal urobilinogenpH 5.5 [...] day(s), # 10 cap(s), Refills(s) 0, Pharmacy: [facility], 166, cm, 02/21/23 13:06:00 EST, Height/Length Dosing, 58.6, kg, 02/21/23 13:06:00 EST, Weight Dosing phenazopyridine, 200 mg = 1 tab(s), Oral, TID, X 3 day(s), # 9 tab(s), Refills(s) 0, Pharmacy: [facility], 166, cm, 02/21/23 13:06:00 EST, Height/Length Dosing, 58.6, kg, 02/21/23 13:06:00 EST, Weight Dosing Urine Culture Urnls Dip Stick Auto w/o Microscopy POC 05785 2. Acute cystitis (N30.00: Acute cystitis without hematuria) #1 3. Constipation in female (K59.00: Constipation, unspecified) improving. occasional Colace OTC and Miralax 4. Hemorrhoids (K64.9: Unspecified hemorrhoids) improving, stable 5. Hypothyroidism (E03.9: Hypothyroidism, unspecified) Chronic Stable with 112 mcg daily of Synthroid _ control Weight is stable Asymptomatic- noteable tachycardia today Du (more content not included)...[facility] HospitalComment on above:Result Comment: Electronically Signed By: [...] these instructions at home: Medicines ? Take gvmh-tmi-oocmxgi and prescription medicines only as told by [...] provider. Document Revised: 10/17/2020 Document Reviewed: 10/17/2020 [employer] Patient Education ? 2022 Videofropper.[facility] Ambulatory Visit Summaryon 89-67-3479Rblmghoqvo Visit Summary LILIANAYANA MONTENEGRO :2000 Visit Date:11/30/2022 [...] EST With: Ya Wang [facility] Gastroenterology Office/Clinic Noteon 54-77-3729Tqwsxasrwsxzawkf Office/Clinic NoteChief Complaint constipation HPI Staff Patient [...] Refill(s) 0, Prior to colonoscopy., [id number], 166, cm, 11/30/22 12:12:00 EDT, Height/Length Dosing, [...] rhinitis Hypoglycemia Hypothyroidism Left (more content not included)...[facility] HospitalComment on above:Result Comment: Electronically Signed By: Daniel Gray CNP\.br\Date and Time Signed: 11/30/22 12:32 EDTPatient Educationon 06-06-1912Bqlhzqt EducationGastroenterology High-Fiber Eating Plan Fiber, also called [...] Bulgur wheat. Millet. Quinoa. Bran muffins. Popcorn. Pettigrew wafer crackers. Meats and other proteins Asbury beans, kidney beans, and díaz beans. Soybeans. [...] Cream cheese. Sour cream. Fats and oils Reid. Beverages Soft drinks. Other foods Cakes and [...] care provider. Document Revised: (more content not included)...[facility] HospitalPre-Certification Formon 42-02-7812Wzi-Certification Form [id number]#1.00CD:127NormalWayne HospitalFasymmes hospital Medicine Office/Clinic Noteon 52-71-7485Hrxekp Medicine Office/Clinic NoteChief Complaint pt here for [...] visit we encourage proper diet and exercise oojz-ddr-vbacpzp MiraLAX or Colace with Preparation H zovi-pem-aahlido, bleeding has stopped, blood noted on toilet [...] Rectal exam was performed, I did offer vascular technician but patient declined, external anus is normal [...] length of time on toilet, sitz bath's, rraj-lzl-diwspqu medications and suppositories and creams Hydrocortisone lidocaine with applicator gel ordered today to use twice daily Referral for GI referral placed today Ordered: hydrocortisone-lidocaine topical, 1 carmen, Rectal, BID, 60 EA, Refill(s) 1, [facility], 166, cm, 11/11/22 9:28:00 EDT, Height/Length Dosing, 59.4, kg, 11/11/22 9:28:00 EDT, Weight Dosing [employer] [facility] [employer] Internal Ambulatory Referral 2. Hypothyroidism [...] exercise. Orders: azelastine ophthalmic, (more content not included)...[facility] HospitalComment on above:Result Comment: Electronically Signed By: Ya Wang\.br\Date and Time Signed: 11/11/22 09:53 EDTPatient Educationon 07-55-0030Ufbffce EducationHigh-Fiber Diet Fiber, also called dietary fiber, [...] ? Talk with a diet and nutrition services worker (dietitian) if you have questions about specific [...] Bulgur wheat. Millet. Quinoa. Bran muffins. Popcorn. Pettigrew wafer crackers. Meats and other proteins Asbury, kidney, and díaz beans. Soybeans. Split peas. [...] Cream cheese. Sour cream. Fats and oils Reid. Beverages Soft drinks. Other foods Cakes and [...] 03/07/2006 Document Revised: 01/09/2018 Document Reviewed: 01/09/2018 [employer] Patient Education ? 2019 Videofropper. Gastroenterology H (more content not included)...[facility] HospitalAmbulatory Visit Summaryon 50-97-8771Kbwiiijgjj Visit Summary YANA CHURCH :2000 Visit Date:10/08/2022 [...] hypothyroid, weight loss Where: [address] [facility], [facility] [address] [address]- Business (1) You Need to Complete the Following Anti-thyroid Abys, Blood, Routine collect, 10/08/22, Order for future visit, Lab Collect, Weight lossInvalid Interpretation CodeHypothyroidismWayne HospitalAuto Diffon 07-76-5599Txgsixlzf/100 WBC (Bld)1.1 %Normal0.0-2.0 Wayne HospitalComment on above:Order Comment: Order Added by Discern Expert.Performed By: #### 6947743, 44579117, 10588095, 5320655, 6452743 ####[facility] [address] [place] [address] Basophils/Leukocytes Auto (Bld) [Pure # fraction]0.1 E9/LNormal0.0-0.2FMcKitrick HospitalComment on above:Order Comment: Order Added by Discern Expert.Performed By: #### 7524830, 58765745, 06289947, 9991703, 8741926 ####[facility] [address] [place] [address] Eosinophils/100 WBC (Bld)1.2 %Normal0.0-8.0Wayne HospitalComment on above:Order Comment: Order Added by Discern Expert.Performed By: #### 0786160, 17614823, 33376754, 4057520, 3130781 ####[facility] [address] [place] [address]Trumsdiwjtz/Leukocytes Auto (Bld) [Pure # fraction]0.1 E9/LNormal0.0-0.5FMcKitrick HospitalComment on above: Order Comment: Order Added by Discern Expert.Performed By: #### 7191912, 66179956, 23602413, 3982983, 2118763 ####[facility] [address] [place] [address]Zqvuhpjcbbx/100 WBC (Bld)41.0 %Normal 14.0-50.0Wayne HospitalComment on above:Order Comment: Order Added by Discern Expert.Performed By: #### 0124705, 76193931, 23934033, 4333740, 1206054 ####[address] [address]Rgxqkgwxdog/Leukocytes Auto (Bld) [Pure # fraction]2.3 E9/LNormal1.0-4.0 Wayne HospitalComment on above:Order Comment: Order Added by Discern Expert.Performed By: #### 8062420, 30285066, 85997454, 7448171, 6240794 ####[address] [address] Monocytes/100 WBC (Bld)5.8 %Normal4.0-14.0Wayne HospitalComment on above:Order Comment: Order Added by Discern Expert.Performed By: #### 8551606, 55188445, 19341437, 3230191, 9759681 ####[facility] [address] [place] [address]Hzvecbzuu/Leukocytes Auto (Bld) [Pure # fraction]0.3 E9/LNormal0.2-1.0Wayne HospitalComment on above:Order Comment: Order Added by Discern Expert.Performed By: #### 5396907, 57534063, 07712755, 0223615, 1571839 ####[address] [address]Usbmbmfhcma/100 WBC (Bld)50.9 %Qoscdz78.0-75.0 Wayne HospitalComment on above:Order Comment: Order Added by Discern Expert.Performed By: #### 1344139, 28556967, 41673579, 2842642, 2570725 ####[address] [address] Neutrophils/Leukocytes Auto (Bld) [Pure # fraction]2.8 E9/LNormal2.0-7.5FMcKitrick HospitalComment on above:Order Comment: Order Added by Discern Expert.Performed By: #### 8740576, 71248679, 30456281, 2120620, 8104918 ####[address] [address]HIR w/ Auto Diffon 67-54-5143Ydsqzlmskpl distribution width (RBC) [Ratio]12.6 % Mqofwl51.9-14.2FMcKitrick HospitalComment on above:Performed By: #### 3409791, 01684497, 58731058, 1767577, 8734817 ####[address] [address]Bxjtrskscv (Bld) [Volume fraction] 40.4 %Lizacf29.0-46.0Wayne HospitalComment on above:Performed By: #### 8685314, 43705715, 70086099, 0535902, 8700347 ####[address] [address]Swoqinoree (Bld) [Mass/Vol] 14.1 g/eDCkbvqr85.0-16.0Wayne HospitalComment on above:Performed By: #### 4069022, 01638836, 64114545, 5825499, 2854819 ####[address] [address]RSZ (RBC) [Entitic mass]32.1 emXfwcyy65.0-34.0Wayne HospitalComment on above:Performed By: #### 0409617, 73969690, 79986499, 0469457, 5044484 ####[address] [address]EBWW (RBC) [Mass/Vol]34.8 g/dLNormal 31.4-36.0Wayne HospitalComment on above:Performed By: #### 0878278, 51386893, 08173207, 4489730, 2487637 ####[facility] [address] [place] [address]BGV (RBC) [Entitic vol]92.1 fLNormal 80.0-100.0Wayne HospitalComment on above:Performed By: #### 0052851, 47106724, 36655661, 0064359, 7385501 ####[address] [address]Oywkqxie mean volume (Bld) [Entitic vol]9.1 fLNormal6.4-10.8Wayne HospitalComment on above:Performed By: #### 6874638, 12313797, 41453915, 2839520, 7747397 ####[address] [address]Zprqbiokh (Bld) [#/Vol]238.0 E9/YTfhlbk826.0-500.0Wayne HospitalComment on above:Performed By: #### 5975019, 14904838, 58767271, 1903052, 3607848 ####[address] [address]QIW (Bld) [#/Vol]4.4 E12/L Normal4.3-5.9Wayne HospitalComment on above:Performed By: #### 2808468, 37449126, 72138428, 0331798, 9519106 ####[address] [address]GIV corrected for nucl RBC Auto (Bld) [#/Vol]5.6 E9/LNormal4.0-11.0Wayne HospitalComment on above: Performed By: #### 2843724, 06906189, 48989926, 0960249, 4264062 ####[facility] [address] [place], [place] [address]DVPjl 10-08-2022 Albumin [Mass/Vol]4.7 g/dLNormal3.3-5.0Wayne HospitalComment on above:Performed By: #### 4800612, 98318716, 42693804, 2917715, 7858167 ####[facility] [address] [place] [address] Albumin/Globulin (S) [Mass conc ratio]1.6Hrencz7.1-2.2FMcKitrick HospitalComment on above:Performed By: #### 6833717, 36656305, 27630542, 4273875, 9680053 ####[facility] [address] [place] [address]KJE [Catalytic activity/Vol]42 Int._Unit/DOsqrmm56-57JtcfdrWayne HospitalComment on above:Performed By: #### 7941420, 45044822, 75802525, 5919012, 2264505 ####[facility] [address] [place], [place] [address]RAI No additional P-5'-P [Catalytic activity/Vol]15 Int._Unit/LNormal6-46 Wayne HospitalComment on above:Performed By: #### 3682547, 44843116, 87667786, 0033489, 4011674 ####[facility] [address] [place], [place] [address]Qtogb gap [Moles/Vol]13 mmol/LNormal6-16 Wayne HospitalComment on above:Performed By: #### 5317375, 30968667, 47270770, 5581639, 2373473 ####[facility] [place], [place] [address]UDV [Catalytic activity/Vol]22 Int._Unit/LNormal5-43Fisher [facility] River Medical CenterComment on above:Performed By: #### 8998086, 34247606, 19018037, 8111710, 8900009 ####[facility] [address] [place], [place] [address]Jbsaagfzl [Mass/Vol]0.5 mg/dL Normal0.0-1.1FMcKitrick HospitalComment on above:Performed By: #### 2667536, 26947144, 27477028, 3734303, 4615073 ####[facility] [address] [place], [place] [address]Vtwelef [Mass/Vol]9.4 mg/dLNormal 8.9-11.1FMcKitrick HospitalComment on above:Performed By: #### 3937291, 77112431, 06866809, 2915051, 1665625 ####[facility] [address] [place], [place] [address]Vcaxegyg [Moles/Vol]107 mmol/LNormal 101-111Wayne HospitalComment on above:Performed By: #### 1286095, 95237749, 67829587, 9069009, 6502671 ####[facility] [address] [place], [place] [address]WB0 [Moles/Vol]24 mmol/XNuipqg69-36 [facility] HospitalComment on above:Performed By: #### 2115687, 74443296, 39010413, 5500628, 9704758 ####[facility] [place], [place] [address]Ehmnzhckqh [Mass/Vol]0.7 mg/dLNormal 0.5-1.3FMcKitrick HospitalComment on above:Performed By: #### 1313470, 07542721, 23126884, 6138933, 1065085 ####[facility] [address] [place], [place] [address]Cnxnqclj (S) [Mass/Vol]3.2 g/dLNormal 1.4-4.0Wayne HospitalComment on above:Performed By: #### 0894339, 78465978, 39946187, 9694145, 9249841 ####[facility] [place], [place] [address]Pargjhi [Mass/Vol]105 mg/jHAlilgg89-413 Wayne HospitalComment on above:Result Comment: If this glucose result represents a fasting glucose, interpretation should refer tothe following reference range: 55-99 mg/dLPerformed By: #### 5576935, 84749827, 36717533, 6114117, 0177194 ####[facility] [address] [place], [place] [address]Znovvzpzx [Moles/Vol]3.9 mmol/LNormal3.5-5.3FMcKitrick HospitalComment on above:Performed By: #### 0307495, 13083346, 11503836, 1028857, 1351481 ####[facility] [address] [place], [place] [address]Gqhhxjb [Mass/Vol]7.9 g/dLHigh6.0-7.8Wayne HospitalComment on above:Performed By: #### 3422264, 39096798, 34219724, 9854135, 6417887 ####[facility] [address] [place], [place] [address]Uzqtss [Moles/Vol]140 mmol/NKmknfy782-738NizyjqWayne HospitalComment on above:Performed By: #### 3615075, 30041090, 93539706, 8531560, 8471561 ####[facility] [address] [place], [place] [address]Rkzp nitrogen [Mass/Vol]17 mg/dLNormal5-21Wayne HospitalComment on above:Performed By: #### 3111317, 03477439, 37652665, 7761836, 1509457 ####[facility] [address] [place], [place] [address]Iyfj nitrogen/Creatinine [Mass ratio]24 No TxwwmOjsv64-53RjdnznWayne Hospital Comment on above:Performed By: #### 6469549, 64500771, 87865386, 7591331, 9629966 ####[facility] [address] [address]Hfbwkjw for Treatmenton 67-48-5459Slbegcg for Treatment [id number]#1.00CD:127NormalClinton Memorial Hospital Medicine Office/Clinic Noteon 51-80-6984Lspxsw Medicine Office/Clinic NoteChief Complaint Establish care --- [...] Dr Marshall scheduled for nov 2022 Specialists: Boilermaking Supervisor: Bird Álvarez in [place]- contacts most of the time, Dentist: UTD - no issues- Dr Nila MARSHALL- [facility] KASPER Review of Systems PHQ [...] Pap testing and gynecologic screenings 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 Discussed self breast exams and other health [...] and exercise increasing. Patient encouraged to use jyzn-jsk-hesswnk MiraLAX or Colace, encouraged Preparation H edwf-azl-tqqgyvq topical treatments if needed. \ Follow-up only if needed. Patient only having minimal complaints 3. Constipation in female (K59.00: Constipation, unspecified) see #3 4. BMI 20.0-20.9, ad (more content not included)...[facility] HospitalComment on above:Result Comment: Electronically Signed By: Ya Wang\.br\Date and Time Signed: 10/08/22 16:30 EDTPatient Educationon 73-16-0626Vahqogl EducationEndocrinology Hypoglycemia Hypoglycemia occurs when the level [...] instructions at home: General instructions ? Take gzlo-gzn-pkhvcgx and prescription medicines only as told by your health care provider. ? Monitor your blood glucose as told by your health care provider. ? If you drink alcohol: ? Limit how much you have to: ? 0?1 (more content not included)...NormalProMedica Memorial Hospital With T4fr Reflexon 51-20-6688FHI Qn0.58 m[IU]/LNormal0.34-5.60Wayne HospitalComment on above:Performed By: #### 3580455, 26383129, 41696512, 2585527, 5668938 ####[facility] [address] [place], [place] [address]oWGWkr 36-59-2370HSB/1.73 sq M.predicted among non-blacks MDRD (S/P/Bld) [Vol rate/Area]124 mL/min/1.73 k8Phjlzz>=59Fisher Saint Luke InstituteComment on above:Order Comment: Order added by Discern Expert.Result Comment: Chronic kidney disease could be indicated at eGFR's of less than 60 mL/min/1.73m2. K idney failure is indicated at less than 15 mL/min/1.73m2.Performed By: #### 4397693, 89685982, 41785219, 5150069, 6148836 ####[facility] [address] [place], [place] [address]NQY ACOG PANEL 2: 21 to 29on 10-23-2021..NormalMarion HospitalComment on above:Performed By: #### CBC #### [facility] [address] [place] [address] Dr. Rima Dinh Gdln ACOG Bponjyc84-55PkdhkpKttCleveland Clinic South Pointe HospitalComthree rivers health hospital on above:Performed By: #### CBC #### [facility] [address] [place] [address] Dr. Rima CharlesDIAGNOSIS:CommentPremier Health on above: Result Comment: NEGATIVE FOR INTRAEPITHELIAL LESION OR MALIGNANCY. THIS SPECIMEN WAS RESCREENED PART OF OUR SOFTWARE TEST SPECIALIST PROGRAM.Performed By: #### CBC #### [facility] [address] [place] [address] Dr. Rima CharlesMethodology:CommentPremier Health on above: Result Comment: This liquid based ThinPrep(R) pap test was screened with the use of an image guided system.Performed By: #### CBC #### [facility] [address] [place] [address] Dr. Rima CharlesNote:CommentPremier Health on above:Result Comment: The Pap smear is a screening test designed to aid in the detection of premalignant and malignant conditions of the uterine cervix. It is not a diagnostic procedure and should not be used as the sole means of detecting cervical cancer. Both false-positive and false-negative reports do occur. .Performed By: #### CBC #### [facility] [address] [place] [address] Dr. Rima CharlesPerformed by:CommentPremier Health on above: Result Comment: Piter Cagle, [employer] Cre[employer] Machine Operator (ASCP)Performed By: #### CBC #### [facility] [address] [place] [address] Dr. Rima Bryson reviewed by:[facility] on above:Result Comment: Hannah Morejon, Supervisory [employer] Machine Operator (ASCP) Performed By: #### CBC #### [facility] [address] [place] [address] Dr. Rima CharlesReflex Criteria:CommentPremier Health on above:Result Comment: The HPV DNA reflex criteria were not met with this specimen result therefore, no HPV testing was performed. .Performed By: #### CBC #### [place] [address] Dr. Rima CharlesSpecimen adequacy:CommentPremier Health on above:Result Comment: Satisfactory for evaluation. Endocervical and/or squamous metaplastic cells (endocervical component) are present. Areas of partially obscuring blood are present.Performed By: #### CBC #### [facility] [address] [place] [address] Dr. Rima Cornell T4on 15-99-8930Bhhc T4 [Mass/Vol]1.01 ng/dLNormal0.76-1.46 [facility] on above:Performed By: #### FT4 #### [facility] [address] [place] [address] Dr. Rima BrowerHoagustín 08-66-0461HAW7.997 uIU/mLCritically high0.358-3.740[facility] on above:Performed By: #### TSH #### [facility] [address] [place] [address] Dr. Rima CharlesVAGINITIS/VAGINOSIS DNA PROBEon 77-93-8174Snywlse speciesNegative NormalNegativeThe [facility] on above:Performed By: #### CBC #### [facility] [address] [place] [address] Dr. Rima Moonerejoba vaginalisNegativeNormalNegativeMarion Hospital Comment on above:Performed By: #### CBC #### [facility] [address] [place] [address] Dr. Rima Calvo vaginalisNegativeNormalNegativeMarion Hospital Comment on above:Performed By: #### CBC #### [facility] [address] [place] [address] Dr. Rima CharlesCHLAMYDIA/GONOCOCCUS FRANSISCO (SWAB/URINE/PAPon 71-53-2078Vrnjajeel trachomatis, NAANegativeNormalNegativeMarion HospitalComment on above: Performed By: #### CBC #### [facility] [address] [place] [address] Dr. Rima CharlesNeisseria gonorrhoeae, NAANegativeNormalNegativeMarion HospitalComment on above:Performed By: #### CBC #### [facility] [address] [place] [address] Dr. Rima CharlesVAGINITIS/VAGINOSIS DNA PROBEon 99-46-2112Hfxbiqr speciesNegative NormalNegativeMarion HospitalComment on above:Performed By: #### VAGINT #### [facility] [address] [place] [address] Dr. Rima Moonerebenedict vaginalisNegativeNormalNegativeMarion Hospital Comment on above:Performed By: #### VAGINT #### [facility] [address] [place] [address] Dr. Rima Calvo vaginalisNegativeNormalNegativeMarion Hospital Comment on above:Performed By: #### VAGINT #### [facility] [address] [place] [address] Dr. Rima Livingston 69-09-3242XHD6.494 uIU/mLNormal0.470-4.680Marion HospitalComment on above:Performed By: #### CBC #### [facility] [address] [place] [address] Dr. Rima Dougherty RANGESEE Wadsworth-Rittman HospitalComment on above: Result Comment: <0.34 UIU/ml HYPERTHYROID 0.34-5.60 UIU/ml EUTHYROID >5.60 UIU/ml HYPOTHYROIDPerformed By: #### CBC #### [facility] [address] [place] [address] [address] Rima Barnes MATERNAL FOR SPINA BIFIDAon 35-59-3654JDB MoM0.98C[facility] Clinic Union HospitalComment on above:Performed By: #### AFPMAT #### [facility] [address] [address] [address] Rima Barnes Value36.3 ng/mLNormalMarion HospitalComment on above: Performed By: #### AFPMAT #### [facility] [address] [address] [address] Rima Barnes, Serum for Spina BifidaReSelect Medical Specialty [facility] Comment on above:Performed By: #### AFPMAT #### [facility] [address] [address] [address] Rima CurrieOhioHealthComment on above:Result Comment: Alie Moon, Ph.D., [facility] Director . References: Available Upon Request. . Multiples Of Median Cutoffs For AFP Elevations Murphy 2.5 Black 2.8 IDD 2.0 Twins 4.5 Abbreviation Definitions IDD - Insulin Dep Diabetes OSBR - Open Spina Bifida Risk . For further inquiries contact [facility] at [phone].Performed By: #### AFPMAT #### [facility] [address] [address] [address] Rima Pedro Age Collection Date16.0 weeksC[facility] Comment on above:Performed By: #### AFPMAT #### [facility] [address] [address] [address] Rima Pedroat, Age Based onLMPNormalMarion HospitalComment on above:Result Comment: Recalculations are not recommended when gestational dating by LMP and ultrasound are within 10 days.Performed By: #### AFPMAT #### [facility] [address] [place] [address] Dr. Rima CharlesKettering Health – Soin Medical CenterComthree rivers health hospital on above:Performed By: #### AFPMAT #### [facility] [address] [place] [address] Dr. Rima CharlesInterpretationOhioHealthComthree rivers health hospital on above: Result Comment: Interpretation: Screen [...] Customer Services to discuss available options. The [employer] recommends amniocentesis be offered to women age 35 and older.Performed By: #### AFPMAT #### [facility] [address] [place] [address] Dr. Rima CharlesMaternahaley Age at EDD23.4 yrCleveland Clinic Union HospitalComthree rivers health hospital on above:Performed By: #### AFPMAT #### [facility] [address] [place] [address] Dr. Rima Erazo [facility] HospitalComthree rivers health hospital on above: Performed By: #### AFPMAT #### [facility] [address] [place] [address] Dr. Rima CharlesOSBR Risk 1 [id number] Clinic Union HospitalComthree rivers health hospital on above: Performed By: #### AFPMAT #### [facility] [address] [place] [address] Dr. Rima Meadows.[facility] on above:Performed By: #### AFPMAT #### [facility] [address] [place] [address] Dr. Rima MccoyOhioHealth Marion General HospitalComment on above: Performed By: #### AFPMAT #### [facility] [address] [place] [address] Dr. Rima Urena Results:NegativeNormalThe Providence HospitalComment on above: Performed By: #### AFPMAT #### [facility] [address] [place] [address] Dr. Rima Del Rosario B SURFACE ANTIGEN SCREENon 44-02-3042DOuHf ScreenNegative NormalNegativeThe Providence HospitalComment on above:Performed By: #### HBSANS #### [facility] [address] [place] [address] Dr. Rima RiosTIS C ANTIBODYon 74-91-8258Ltj C Virus Ab<0.5Lgzkwl1.0-0.9 [facility] on above:Result Comment: Negative: < 0.8 Indeterminate: 0.8 - 0.9 Positive: > 0.9 . The CDC recommends that a positive HCV antibody result be followed up with a HCV Nucleic Acid Amplification test (770692).Performed By: #### HCV #### [facility] [address] [place] [address] Dr. Rima Chery 1 AND 2 WITH REFLEXon 72-15-1422NDD Screen 4th Generation wRfxNon-ReactiveNormalNon ReactiveThe Providence HospitalComthree rivers health hospital on above: Performed By: #### HIV12 #### [facility] [address] [place] [address] Dr. Rima CharlesRPR QUANTon 42-47-9442Uxhhq Plasma Reagin, QuantNon-Reactive NormalNonRea<1:1[facility] on above:Performed By: #### CBC #### [facility] [address] [place] [address] Dr. Rima MirelesBELLA AB IGGon 43-84-2303Slgrxyq Antibodies, IgG2.33 index NormalImmune >0.99[facility] on above:Result Comment: Non- immune <0.90 Equivocal 0.90 - 0.99 Immune >0.99Performed By: #### RUBIGG #### [facility] [address] [address] [address] Rima Sierra AUTO DIFFon [id number] #0.0 103/ulNormal0.0-0.1The [facility]erry Hospitalment on above:Performed By: #### CBC #### [facility] [address] [address] [address] Rima CharlesBasophils/100 WBC (Bld)0.4 %Normal0.2-2.0[facility] Comment on above:Performed By: #### CBC #### [facility] [address] [place] [address] Dr. Rima Fuller #0.0 103/ulNormal0.0-0.7The [facility] HospitalComment on above: Performed By: #### CBC #### [facility] [address] [place] [address] Dr. Rima Leahyosinophils/100 WBC (Bld)0.6 %Critically low0.9-7.0The [facility] HospitalComment on above:Performed By: #### CBC #### [facility] [address] [place] [address] Dr. Rima Leahyrythrocyte distribution width (RBC) [Ratio]12.0 %Orcflo49.0-15.0 The [facility] HospitalComment on above:Performed By: #### CBC #### [facility] [address] [place] [address] Dr. Rima CharlesHematocrit (Bld) [Volume fraction]37.5 %Hhllws10.0-48.0The [facility] HospitalComment on above:Performed By: #### CBC #### [facility] [address] [place] [address] Dr. Rima CharlesHemoglobin (Bld) [Mass/Vol]13.2 g/mTUvxavk91.0-16.0The [facility] Hospitalment on above:Performed By: #### CBC #### [facility] [address] [place] [address] Dr. Rima Carreno #0.02 10e3/ulNormal0.00-0.03The [facility] Hospitalment on above:Performed By: #### CBC #### [facility] [address] [address] [address] Rima Carreno %0.3 %Normal0.0-0.5The [facility] HospitalComthree rivers health hospital on above: Performed By: #### CBC #### [facility] [address] [address] [address] Rima Singleton #1.4 103/ulNormal1.2-3.8The [facility] HospitalComthree rivers health hospital on above:Performed By: #### CBC #### [facility] [address] [place] [address] Dr. Rima Jayhocytes/100 WBC (Bld)20.2 %Critically low20.5-60.0The [facility] HospitalComthree rivers health hospital on above:Performed By: #### CBC #### [facility] [address] [place] [address] Dr. Rima Lr DIFF REQNONormalThe Providence HospitalComment on above: Performed By: #### CBC #### [facility] [address] [place] [address] Dr. Rima Nicholas (RBC) [Entitic mass]33.2 xkBzftzi68.7-34.0[facility] on above:Performed By: #### CBC #### [facility] [address] [place] [address] Dr. Rima Fall (RBC) [Mass/Vol]35.2 g/nEAijxwl11.9-35.2The [facility] Hospitalment on above:Performed By: #### CBC #### [facility] [address] [place] [address] Dr. Rima Fall (RBC) [Entitic vol]94.5 oHIzfeyp26.0-99.0[facility] on above:Performed By: #### CBC #### [facility] [address] [place] [address] Dr. Rima Grossman #0.4 103/ulNormal0.3-0.8The [facility] HospitalComment on above:Performed By: #### CBC #### [facility] [address] [place] [address] Dr. Rima Wenocytes/100 WBC (Bld)6.1 %Normal1.7-12.0[facility] Comment on above:Performed By: #### CBC #### [facility] [address] [place] [address] Dr. Rima Huston #5.1 103/ulNormal1.4-6.5The [facility] HospitalComment on above:Performed By: #### CBC #### [facility] [address] [place] [address] Dr. Rima Bobutrophils/100 WBC (Bld)72.4 %Myrcwf00.0-75.0The [facility] HospitalComment on above:Performed By: #### CBC #### [facility] [address] [place] [address] Dr. Rima Bradfordlet mean volume (Bld) [Entitic vol]11.2 fLNormal9.5-13.5The [facility] HospitalComment on above:Performed By: #### CBC #### [facility] [address] [place] [address] Dr. Rima CharlesPLT221 103/flVjgobj785-038Wzp Providence HospitalComment on above: Performed By: #### CBC #### [facility] [address] [place] [address] Dr. Rima CharlesRBC3.97 106/ulCritically low4.20-5.40The [facility] HospitalComment on above:Performed By: #### CBC #### [facility] [address] [place] [address] Dr. Rima CharlesWBC7.1 103/ulNormal4.0-11.0The [facility] HospitalComment on above: Performed By: #### CBC #### [facility] [address] [place] [address] Dr. Rima Cardenas URINEon 81-91-2153WXMJONJ URINECulture Observations: No growthNoCleveland Clinic South Pointe HospitalComment on above:Performed By: #### CBC #### [facility] [address] [place] [address] Dr. Rima CharlesGLYCOHEMOGLOBIN A1Con 64-99-2403ZYR RECOMMENDATIONADA THERAPEUTIC TARGET 6.0 - 7.0 ACTION SUGGESTED > 7.0NoCleveland Clinic South Pointe HospitalComment on above:Performed By: #### A1C #### [facility] [address] [place] [address] Dr. Rima CharlesGlucose [Mass/Vol]111 mg/dLCleveland Clinic Union HospitalComment on above:Performed By: #### A1C #### [facility] [address] [place] [address] Dr. Rima CharlesHbA1c (Bld) [Mass fraction]5.5 %Normal<=6.0[facility] Comment on above:Performed By: #### A1C #### [facility] [address] [place] [address] Dr. Rima Escalante BOX TEST PT SEND OUTon 16-90-0436UXPL TO REF LAB12/09/20 NormalMarion HospitalComthree rivers health hospital on above:Performed By: #### CBC #### [facility] [address] [place] [address] Dr. Rima BrowerHoagustín 70-01-2120XTF7.651 uIU/mLNormal0.470-4.680The [facility] HospitalComthree rivers health hospital on above:Performed By: #### CBC #### [facility] [address] [place] [address] Dr. Rima Dougherty RANGESEE BELOWCleveland Clinic Union HospitalComment on above: Result Comment: <0.34 UIU/ml HYPERTHYROID 0.34-5.60 UIU/ml EUTHYROID >5.60 UIU/ml HYPOTHYROIDPerformed By: #### CBC #### [facility] [address] [place] [address] Dr. Rima CharlesTYPE AND SCREENon 71-93-4190UFGI AND SCREENNegativeNoCleveland Clinic South Pointe HospitalComment on above:Performed By: #### CBC #### [facility] [address] [address] [address] Rima Butler PREG TVon [id number] PREG TVEXAMINATION: US PREG TV HISTORY: Urine [...] Electronically authenticated by: LILIANE POPE Date: 2020-12-02 09:34[facility] Vital Signs Date TimeVital SignValuePerforming AzryamljxDrignnkz57-03-3040 08:39-0500Body mass index (BMI) [Ratio]26.29 kg/j1Xqykj Solovis DO Work Phone: [phone] [place], [place] [address]Cjnafmdviq61-81-7358 08:39-0500Body ewvvsk64.67 kgCorey Plurchase Work Phone: [phone] [place], [place] [address]Qghettzggd97-29-2900 08:39-0500Diastolic blood ubaztszk64 mm[Hg][employer] Work Phone: [phone] [place], [place] [address]Tsulkejhcf14-04-5851 08:39-0500Systolic blood ofsuegmy644 mm[Hg][employer] Work Phone: [phone] [place], [place] [address]Wykmkqzwjb42-64-2050 08:35-0400Body mass index (BMI) [Ratio]26.71 kg/t6Mlbvc Joanna Wannyi Work Phone: [phone] license of [facility] CenterWsrkbafjhf52-16-1481 08:35-0400Body daybpu06.8 kg [employer] Work Phone: [phone] license of [facility] CenterKyqwqsltmt30-85-2670 08:35-0400Diastolic blood lpezpyql55 mm[Hg]Santosh Joanna DO Work Phone: [phone])515-[address] [place], [place] [address]Drtjjsfjbc27-26-3262 08:35-0400Systolic blood rkivaonn307 mm[Hg]Santosh Joanna DO Work Phone: [phone])[facility] [place], [place] [address]Tuwpbmxggd29-94-2290 11:20-0400Body mass index (BMI) [Ratio]25.38 kg/i0Jjwfe Joanna DO Work Phone: [phone])[facility] [place], [place] [address]Kzbxazerja90-37-2956 11:20-0400Body eztygr91.17 kgCorey Joanna DO Work Phone: [phone] [place] [address]-13-2025 11:20-0400Diastolic blood ehgzepjl12 mm[Hg]Santosh Joanna DO Work Phone: [phone])[facility] [place], [place] [address]Xmnkwzfhfg12-82-2591 11:20-0400Systolic blood smqnvogm667 mm[Hg]Santosh Joanna DO Work Phone: [phone] [place], [place] 7485209-22-2025 10:23-0400Body mass index (BMI) [Ratio]24.79 kg/m2Amy Brea PA Work Phone: [phone])[facility] [place], [place] [address]Jxhqjjviyi77-15-4008 10:23-0400Body nhfzty38.59 kgAmy Brea PA Work Phone: [phone])[facility] [place], [place] [address]Skctlhknvo47-13-2659 10:23-0400Diastolic blood xcugscry64 mm[Hg]Erum Guidry PA Work Phone: [phone])[facility] [place], [place] [address]Hhraumbrah39-24-2858 10:23-0400Systolic blood ctkdnqim733 mm[Hg]Erum Guidry PA Work Phone: [phone])[facility] [place], [place] [address]Daldgmiydc48-39-2778 11:45-0400Body mass index (BMI) [Ratio]23.15 kg/i2Yidzh Joanna DO Work Phone: [phone])[facility] [place], [place] [address]Ktykutwqgt95-65-8747 11:45-0400Body zgzsok38.1 kg Santosh Joanna DO Work Phone: 1(440)[facility] [place], [place] [address]Abgwvvcewy27-91-2390 11:45-0400Diastolic blood zipgfkty20 mm[Hg]Santosh Joanna DO Work Phone: [facility] CenterRzdvjxugik08-56-1291 11:45-0400Systolic blood vuwhiwkq447 mm[Hg]Santosh Bhaktao DO Work Phone: [phone]08-18-2025 11:51-0400Body lqbubs741.1 cmJacklyn Campos MD Work Phone: [phone])[address] [place], [place] 4993108-18-2025 11:51-0400Body mass index (BMI) [Ratio]23.03 kg/e7OnvrpyhdJacklyn Campos MD Work Phone: [phone])[address] [place], [place] 4993108-18-2025 11:51-0400Body .78 kgJacklyn Campos MD Work Phone: [phone] [place], [place] 4993108-18-2025 11:51-0400Diastolic blood mjwjgggi74 mm[Hg]Jacklyn Campos MD Work Phone: [phone])[address] [place], [place] 4993108-18-2025 11:51-0400Heart rate 94 /minJacklyn Campos MD Work Phone: [phone] [place], [place] 4993108-18-2025 11:51-0400Systolic blood uieigzch44 mm[Hg]Jacklyn Campos MD Work Phone: [phone] [place], [place] 4993107-28-2025 10:13-0400Body mass index (BMI) [Ratio]22.38 kg/m2Erum HAYS Work Phone: [phone] [place], [place] [address]Tlrogizhin09-22-8355 10:13-0400Body ezkqsq47.01 kgErum HAYS Work Phone: [phone] [place], [place] [address]Zhgepptlcp28-74-6539 10:13-0400Diastolic blood zjlgkwta92 mm[Hg]Erum HAYS Work Phone: [phone] [place], [place] [address]Gdehkhkfga70-82-6534 10:13-0400Systolic blood sbydytsg661 mm[Hg]Erum HAYS Work Phone: [facility] CenterHlkfshmvyb20-17-6258 11:10-0400Body mass index (BMI) [Ratio]22.1 kg/s8Ogojn Joanna DO Work Phone: [phone] [place], [place] [address]Scinwolsjd46-32-6487 11:10-0400Body yjfdmy83.24 kgCorey Joanna DO Work Phone: 1(664)[facility] [place], [place] [address]Ktxycremcm72-76-2656 11:10-0400Diastolic blood xbztwoeo30 mm[Hg]Santosh Joanna DO Work Phone: 1(916)[facility] [place], [place] [address]Yldoxbskum43-20-9339 11:10-0400Systolic blood jzadnujg961 mm[Hg]Santosh Joanna DO Work Phone: [phone] [place], [place] 7485205-30-2025 10:00-0400Body mass index (BMI) [Ratio]22.86 kg/m2[facility]05-30-2025 10:00-0400Body jvknxu83.32 kgSainte Genevieve [facility]05-30-2025 10:00-0400Diastolic blood yypgvfit94 mm[Hg][facility]05-30-2025 10:00-0400Systolic blood mm[Hg][facility]09-23-2024 14:19-0400Body mass index (BMI) [Ratio]21.15 kg/l3Mkatg Joanna DO Work Phone: 1(488)[facility] [place], [place] [address]Rwlyreaybg82-41-4150 14:19-0400Body naiazl54.66 kgCorey Joanna DO Work Phone: [phone]-On license of [facility] CenterHppnsfttyc00-06-0659 14:19-0400Diastolic blood pjuepdvl99 mm[Hg]Santosh Joanna DO Work Phone: [facility] CenterLlgeyogeou63-47-3540 14:19-0400Systolic blood bieaheqm547 mm[Hg]Santosh Joanna DO Work Phone: 1([phone])280-[address] [place], [place] [address]Aljntryast43-08-9207 15:43-0400Blood Pressure Eladia Thornton 400-1509Zldsdq-HmtggMckitrick Hospital Beeq65-84-5889 15:43-0400Diastolic blood stlijdch01 mm[Hg]Ya Thornton 257-9185Ftffia-Pzcwi[address] [place], [place] 3031005-20-2024 15:43-0400Heart upct824 /Waqar Thornton 159-7886Ostzcf-Posdm[address] [place], [place] 3031005-20-2024 15:43-0400Respiratory rate18 /Waqar Thornton 440-6074Nbilrf-Jmhzn[address] [place], [place] 3031005-20-2024 15:43-8027VvO6% (BldA) [Mass fraction]100 %Ya Thornton [address] [place], [place] 4521905-20-2024 15:43-0400Systolic blood shissyfj733 mm[Hg]Ya Thornton [address] [place], [place] 4521912-20-2023 07:21-0500Blood Pressure LocationYa Thornton [address] [place], [place] 4521912-20-2023 07:21-0500Body bjekjnkvfke86.52 [degF]Ya Thornton [address] [place], [place] 4521912-20-2023 07:21-0500Diastolic blood xvdctefc95 mm[Hg]Ya Thornton [address] [place], [place] 4521912-20-2023 07:21-0500Heart rate91 /Waqar Thornton [address] [place], [place] 4521912-20-2023 07:21-0500Respiratory rate18 /Waqar Thornton [address] [place], [place] 4521912-20-2023 07:21-0210TtA8% (BldA) [Mass fraction]100 %Ya Thornton [address] [place], [place] 4521912-20-2023 07:21-0500Systolic blood qxabrxgp448 mm[Hg]Ya Thornton 464-5870Lrecdd-PqpkdRegency Hospital [facility]12-04-2023 12:53-0500Blood Pressure LocationYa Thornton 101-1733Awkawu-Yldve[address] [place], [place] 3031012-04-2023 12:53-0500Diastolic blood toqjeoyt21 mm[Hg]Ya Thornton 513-8944Wygsrh-Saach[address] [place], [place] 3031012-04-2023 12:53-0500Heart tifs809 /Waqar Thornton 515-3434Tpsdft-Wlney[address] [place], [place] 3031012-04-2023 12:53-0500Respiratory rate18 /Waqar Thornton 858-3575Sllava-Dwvoh[address] [place], [place] 3031012-04-2023 12:53-5056NvG7% (BldA) [Mass fraction]99 %Ya Thornton 750-0857Nmoyft-Yxsyg[address] [place], [place] 3031012-04-2023 12:53-0500Systolic blood cibvldcs183 mm[Hg]Ya Thornton 843-2424Qpvudy-Dghsl[address] [place], [place] 3031009-12-2023 12:10-0400Blood Pressure LocationDaniel Gray 538-6524Sdonxm-RapnmRiverview Health Institute09-12-2023 12:10-0400Body vneccnudnwv12.52 [degF]Daniel Gray 455-0601Owwpuy-LrpdsRiverview Health Institute09-12-2023 12:10-0400Diastolic blood mm[Hg]Daniel Gray 230-1277Fanygs-ZcyabRiverview Health Institute09-12-2023 12:10-0400Heart rate97 /Hans Gray 687-7726Foqotk-FrjfvRiverview Health Institute09-12-2023 12:10-0400Systolic blood ccrehktm092 mm[Hg]Daniel Gray 485-9639Ampezz-ChsgdRiverview Health Institute08-24-2023 09:20-0400Blood Pressure LocationYa Thornton 256-8032Dqahsz-Invno[address] [place], [place] 3031008-24-2023 09:20-0400Body muokdxnppeq26.06 [degF]Yasampson Thornton 307-7708Jocvpb-Nbkhi[address] [place], [place] 3031008-24-2023 09:20-0400Diastolic blood nhugmrnh13 mm[Hg]Ya Thornton 367-8906Ucwkdc-Svflq[address] [place], [place] 3031008-24-2023 09:20-0400Heart rate76 /minEgerald Thornton 387-8917Lxosjn-Owqgx[address] [place], [place] 3031008-24-2023 09:20-0097PzD8% (BldA) [Mass fraction]98 %Yasampson Thornton 607-0535Xqpixx-Bnlcf[address] [place], [place] 3031008-24-2023 09:20-0400Systolic blood kunjkdzh395 mm[Hg]Ya Thornton 043-9235Txftsm-Ubyfs[address] [place], [place] 3031002-13-2023 14:14-0500Blood Pressure LocationRitu Desai [phone]-Hdmgy[address] [place], [place] 3031002-13-2023 14:14-0500Body uhxlkdjbben63.7 [degF]Ritu Desai 575-6088Xcuaff-Iprnv[address] [place], [place] 3031002-13-2023 14:14-0500Diastolic blood olhurayl48 mm[Hg]Ritu Desai 261-1358Arshcd-Mfnwx[address] [place], [place] 3031002-13-2023 14:14-0500Heart rate71 /minRitu Desai 152-0048Ublxsy-Illxo[address] [place], [place] 3031002-13-2023 14:14-0962EzX8% (BldA) [Mass fraction]98 %Ritu Desai 383-5168Nlnlmi-QbxneK[facility]tering Health [facility] Eeue00-20-4086 14:14-0500Systolic blood omgtwfcf391 mm[Hg]Ritu Moralesell 697-5108Ivmsox-VeysmK[facility]tering Health [facility] Primary Lmew44-75-3306 02:06-0400Body dkatuj90.968 kgDR [facility] CampusComment on above:Performed By: #### AFPMAT #### [facility] [address] [address] [address] Rima Charles Encounters Encounter DateEncounter TypeCare ProviderFacilityStart: 01-28-2025 End: 05-96-9775Oinsyj flowsheetCorey Joanna DO Work Phone: [facility]YNStart: 01-28-2025 End: 26-82-5534Ygabwu flowsheetCorey Joanna DO Work Phone: [facility]BGYNStart: 01-28-2025 End: 34-67-1237Bizpbrtd flow sheetCorey Joanna DO Work Phone: [facility] [place] OBGYNComment on above:Third trimester ([facility]); 32 weeks gestation of ([facility]); Thyroid disease; History of prior with IUGR ; Hypothyroidism, unspecified typeStart: 01-28-2025 End: 75-02-5276sumhifwahjMREYZ FAZIONot AvailableStart: 01-14-2025 End: 28-75-5797Survtb flowsheetCorey Joanna DO Work Phone: [facility]BGYNStart: 01-14-2025 End: 02-62-5079Nmhznf flowsheetCorey Joanna DO Work Phone: [facility]BGYNStart: 01-14-2025 End: 71-88-5348Fbfsjxbm flow sheetCorey Joanna DO Work Phone: [facility] OBGYNComment on above:Third trimester ([facility]); 30 weeks gestation of ([facility])Start: 01-14-2025 End: 03-30-3967aecmnrlgfpXDBMU FAZIONot AvailableStart: 51-69-2083hfnthkziex Martaishmael RickettsmarcusFacility:[place] PCStart: 12-31-2024 End: 71-55-5545Vevsfrmo flow sheetCorey Joanna DO Work Phone: [facility] OBGYNComment on above:Third trimester ([facility]); 28 weeks gestation of ([facility])Start: 12-31-2024 End: 09-25-2517jbenfbzhxbTFVUB FAZIONot AvailableStart: 12-12-2024 End: 49-20-9700Kjxxozrvb Result EncounterErum HAYS Work Phone: [facility] External Department UnsolicitedStart: 12-12-2024 End: 91-63-5973Yhdpfznon Result EncounterErum HAYS Work Phone: [facility] External Department UnsolicitedStart: 12-11-2024 End: 69-60-2686fhtytcdtjiQFSUL R [facility] HOSPITALTaurusMedisunny Elk River HospitalStart: 12-11-2024 End: 07-56-5559Xcjtzhcoo Result EncounterErum HAYS Work Phone: NONN External Department UnsolicitedStart: 12-11-2024 End: 47-47-7959Vyssjjqhi Result EncounterErum HAYS Work Phone: NODY External Department UnsolicitedStart: 12-10-2024 End: 62-38-0193Kpzbic flowsheetErum HAYS Work Phone: [facility]BGYNStart: 12-10-2024 End: 40-17-9100Dkgeym oliviaheetErum HAYS Work Phone: [facility]BGYNStart: 12-10-2024 End: 84-07-8074Avnwkfmi flow sheetErum HAYS Work Phone: [facility] [place] OBGYNComment on above:Size of fetus inconsistent with dates in second trimester ([facility]) (Primary Dx); Second trimester ([facility]); 25 weeks gestation of ([facility]); Diabetes mellitus screeningStart: 12-10-2024 End: 09-63-8144dpvidymkiqGBC RAMFORTINONot AvailableStart: 11-27-2024 End: 24-22-2820mvgwftwoweEXOVD R [facility] HospitalStart: 11-20-2024 End: 48-67-4524kwakyibayiBZACO R [facility] HospitalStart: 11-12-2024 End: 08-34-0127Blwqtd flowsheetCorey Joanna DO Work Phone: [facility] [place] [facility]BGYNStart: 11-12-2024 End: 79-04-5432Ddrgsu flowsheetCorey Joanna DO Work Phone: [facility]BGYNStart: 11-12-2024 End: 32-04-9771Shvpndve flow sheetCorey Joanna DO Work Phone: [facility] OBGYNComment on above:Hypothyroidism, unspecified type (Primary Dx); Second trimester ([facility]); 21 weeks gestation of ([facility] [facility]); Vaginal discharge; STD exposureStart: 11-12-2024 End: 34-97-8387vzyhuhcqyfCJGPG FAZIONot AvailableStart: 11-07-2024 End: 76-70-0472Ahomrshet Result EncounterCorey Joanna DO Work Phone: noms External Department UnsolicitedStart: 11-07-2024 End: 87-09-7161Hqqtjcydi Result EncounterCorey Joanna DO Work Phone: noms External Department UnsolicitedStart: 11-06-2024 End: 14-88-7804Kudrap Sesar Smith RNMaternal- Medicine at [facility] CenterComment on above: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 trimester (Primary Dx); History of prior with IUGR ; History of premature rupture of membranesStart: 11-05-2024 End: 09-53-7965Icwutr consultation new/estab patient 58 Jesus Campos MD Work Phone: [phone]-Lsrnx Medicine at [facility] Comment on above:20 weeks gestation of (Primary Dx); Low-lying placenta; 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 trimester; History of prior with IUGR ; Family history of autism; History of gestational diabetes in prior , currently ; History of prior with short cervix, currently ; History of premature rupture of membranesStart: 11-05-2024 End: 87-22-9852jflsygmxjhPKUUN [facility] HospitalStart: 10-15-2024 End: 09-55-1290Umbhjs flowsLizzie HAYS Work Phone: noms [facility]BGYNStart: 10-15-2024 End: 51-18-2002Gsjlrh David HAYS Work Phone: NOUK [place] OBGYNStart: 10-15-2024 End: 04-79-9039Qjvdbniaf Result EncounterErum HAYS Work Phone: noms External Department UnsolicitedStart: 10-15-2024 End: 27-09-7920Owkvxciq flow Mahamed HAYS Work Phone: NOTP [facility] OBGYNComment on above:Second trimester ([facility]); 17 weeks gestation of ([facility])Start: 10-15-2024 End: 58-13-7529cpgarrmotmINA RAMEYNot AvailableStart: 10-02-2024 End: 65-60-6230Ydvupiidp Result EncounterCorey Joanna DO Work Phone: noms External Department UnsolicitedStart: 10-02-2024 End: 39-51-5403Esllynfpz Result EncounterCorey Joanna DO Work Phone: noms External Department UnsolicitedStart: 09-24-2024 End: 45-80-6337Zbpxy Rob Campos MD Work Phone: [phone]-Qwurd Medicine at [facility] Start: 09-24-2024 End: 70-56-1946Vrnqzbsxv Result EncounterCorey Joanna DO Work Phone: noms External Department UnsolicitedStart: 09-24-2024 End: 53-55-0139Bwmonzsxb Result EncounterCorey Joanna DO Work Phone: noms External Department UnsolicitedStart: 09-20-2024 End: 85-52-8991Uzrqst Kashif Gutierrez RNMaternal- Medicine at [facility] CenterComment on above:Thyroid disease affecting (Primary Dx); History of prior with IUGR newbornStart: 09-17-2024 End: 25-22-5198Qyptep flowsheetCorey Joanna DO Work Phone: noms BCP OBStart: 09-17-2024 End: 85-29-9304Zpsrot flowsheetCorey Joanna DO Work Phone: noms BCP OBStart: 09-17-2024 End: 83-33-2259wujpgndvccMYQTX FAZIONot AvailableStart: 09-17-2024 End: 68-20-1336Terirecm flow sheetCorey Joanna DO Work Phone: noms BCP OBComment on above:13 weeks gestation of ([facility]); Second trimester ([facility]); Thyroid disease ; History of prior with IUGR ; Diabetes mellitus screeningStart: 09-12-2024 End: 87-23-1808Itfqybgjx Result EncounterCorey Joanna DO Work Phone: noms External Department UnsolicitedStart: 09-12-2024 End: 08-42-1322Iipkhocgw Result EncounterCorey Joanna DO Work Phone: noms External Department UnsolicitedStart: 08-21-2024 End: 21-55-9061Pdnrkvgvs Result EncounterCorey Joanna DO Work Phone: NOMS External Department UnsolicitedStart: 08-21-2024 End: 21-55-7714Jqflesoxz Result EncounterCorey Joanna DO Work Phone: NOMS External Department UnsolicitedStart: 08-17-2024 End: 79-87-2866Jlzvor outpatient visit 5 minutesNoms Bcp Ob Joanna NurseNOMS BCP OBComment on above:GA: 7j6vHmssp: 08-17-2024 End: 61-67-7551evvojunmfmMRFEO FAZIONot AvailableStart: 07-09-2024 End: 15-80-8656wgphowiteiOodylcEric AlmanzarFacility:[place] PCStart: 07-05-2024 End: 76-85-1883hvxsyxstpuJsrcm J SosinskiFacility:[place] PCStart: 07-04-2024 End: 65-40-3835vlivehljpmSzioyyEric AlmanzarFacility:FTMCStart: 07-04-2024 End: 74-55-0349Agicwlo encounter Patsy Almanzar [facility] Start: 05-14-2024 End: 41-50-5902ngrosaeoqwROXTSZ E COSTINAkron [facility]tart: 05-14-2024 End: 83-16-5505Nzzxcpimgh hospital visit by Krys Jurado MD Work Phone: [facility] LabComment on above:Family history of autismStart: 12-12-2023 End: 31-17-9725Rnqfto flowsheetCorey Joanna DO Work Phone: NOMS BCP OBStart: 12-12-2023 End: 72-36-6763Fumkko flowsheetCorey Joanna DO Work Phone: NOMS BCP OBStart: 12-12-2023 End: 22-31-9530Plasbuhvx Result EncounterCorey Joanna DO Work Phone: noMS External Department UnsolicitedStart: 12-12-2023 End: 67-21-5463Mrzejox encounter procedureCorey Joanna DO Work Phone: [facility] Work Phone: Start: 12-12-2023 End: 72-97-1476Cfqrfwoa preventive med est patient 18-39 yrsCorey Joanna DO Work Phone: NOGS BCP OBComment on above:Well woman exam with routine gynecological examStart: 09-07-2023 End: 39-26-3393swkehbjeibAdqxdjnrd L ClarkFacility:FTMCStart: 09-07-2023 End: 14-37-8136Blsvptn encounter procedureYa Thornton [facility] Start: 08-08-2023 End: 32-75-8134gepxlvkxekDypdtatdg L ClarkFacility:[place] PCStart: 08-08-2023 End: 22-22-2751Jgpegna encounter Rosina Thornton [phone]-EqbpkK[facility] Start: 07-12-2023 End: 08-73-6204qkbdaclbasPIPSKKGF E PERRYFacility:EU ueStart: 07-12-2023 End: 00-56-1013Wkjzovd encounter procedureJENNIFER E SUKH [facility] start: 05-16-2023 End: 33-71-7279jzlpcfrnsbXcjpunkhz L ClarkFacility:FTMCStart: 05-16-2023 End: 31-60-4948vrxwedfsgwBixuvaaqj L ClarkFacility:[place] PCStart: 04-01-2023 ambulatoryYa ThorntonFacility:EU BellevueStart: 03-24-2023 End: 74-22-3191ayybvlzwheVrrvrckti L ClarkFacility:FTMCStart: 03-24-2023 End: 52-31-1954Qssvmbq encounter procedureYa Thornton [facility] Start: 03-22-2023 End: 79-28-6398betcqkupdiDolotzzcv L ClarkFacility:FTMCStart: 03-22-2023 End: 79-44-6022Hrmiqsf encounter procedureYa Thornton [facility] Start: 03-09-2023 End: 15-51-1411Fzc Drop offYa Thornton [facility] start: 03-09-2023 End: 24-52-2321uisnuodyfbYjjwrdaly L ClarkFacility:FTMCStart: 03-09-2023 End: 31-11-4299Kxcebzz encounter procedureYa Thornton [phone]-ZmyqxK[facility] Start: 02-21-2023 End: 10-61-0115Kzj Drop offYa Thornton [facility] Start: 02-21-2023 End: 14-29-8396lzymkiankgRdleoawau L ClarkFacility:FTMCStart: 02-21-2023 End: 74-59-2883Atlreuw encounter procedureYa Thornton [phone]-OsjltKettering Health [facility] Start: 11-30-2022 End: 15-85-4505sabjqsnzmjFhnz A SteinmetzFacility:[facility] DHStart: 11-30-2022 End: 14-66-7815Ewyypea encounter procedureDaniel Gray [phone]-CmpiiKettering Health [facility] Start: 97-56-0123erchdqjjznKtnbnjxfd Clark Facility:[facility] DHStart: 11-11-2022 End: 21-74-2427fwbhkaljonVmwtmmdkt L ClarkFacility:[place] PCStart: 11-11-2022 End: 77-13-2093Frojmdo encounter procedureYa Thornton [phone]-RhwsyK[facility]tering Health [facility] Start: 10-08-2022 End: 76-56-4121qmrujjfcsfEmsjgzehg L ClarkFacility:MCStart: 10-08-2022 End: 66-77-3641ltlhcefclwUsptdjovn L ClarkFacility:[place] PCStart: 05-03-2022 End: 14-10-2097Jnrqezx encounter procedureRitu Desai [phone]-WnhrvKettering Health [facility] Start: 10-19-2021 End: 47-01-4932uitqprgrmxLO SANTOSH FAZIOFacility:F8Cegah: 10-17-2021 End: 92-93-5058donzlypvnoFB SANTOSH FAZIOFacility:W8Jdmms: 93-59-9828uywkdrcvgqHH SANTOSH FAZIOFacility:K6Xrcom: 07-13-2021 End: 07-24-8711usdccbnskpSC DOCTOR MISCFacility:P3Hpygm: 05-06-2021 End: 57-89-2640itjqbmmhchKK ERASMO KARASIKFacility:J7Ahpfz: 02-24-2021 End: 11-16-0891xozeijkftuPJ SANTOSH FAZIOFacility:Q6Zjxon: 01-13-2021 End: 86-82-7562tbamvfamwlXG SANTOSH FAZIOFacility:J3Iyqrf: 12-09-2020 End: 58-94-3907ybidwfxhrmCB SANTOSH FAZIOFacility:I3Rmvlv: 12-02-2020 End: 30-89-6771myjptrdyzlUW SANTOSH FAZIOFacility:H1 Procedures DateProcedureProcedure DetailPerforming ClinicianStart: 35-50-5054Cbskk dip stick/tablet rgnt non-auto w/o micrscpCorey Joanna DO Work Phone: Start: 99-81-8582Soudi dip stick/tablet rgnt non-auto w/o micrscpAmy Brea HAYS Work Phone: Start: 74-12-8007Jkvev dip stick/tablet rgnt non-auto w/o micrscpCorey Joanna DO Work Phone: Start: 18-98-2894NJOMCFP TOLERANCE 3 HOURAmy Brea HAYS Work Phone: Start: 78-77-0639CIC CBC WITH AUTO DIFFAmy Brea HAYS Work Phone: Start: 61-89-6704Mfujx dip stick/tablet rgnt non-auto w/o micrscpAmy Brea HAYS Work Phone: Start: 27-48-7277Zcmaq dip stick/tablet rgnt non-auto w/o micrscpCorey Joanna DO Work Phone: Start: 78-74-3129PFS THYROID STIM HORMONECorey Joanna DO Work Phone: Start: 22-93-3290ALR, SERUM, OPEN SPINA BIFIDAAsusanne HAYS Work Phone: Start: 25-21-9413Reqog dip stick/tablet rgnt non-auto w/o micrscpCorey Joanna DO Work Phone: Start: 99-13-5964EQPLBEN 1 HOURCorey Joanna DO Work Phone: Start: 91-29-0625NDL MISCELLANEOUS TESTCorey Joanna DO Work Phone: Start: 17-34-1750TBX MISCELLANEOUS TESTCorey Joanna DO Work Phone: Start: 73-45-6453Fashthvrbarry Campos MD Work Phone: Start: 79-55-6342WNW W Auto Differential panel - Blood Santosh R Joanna DO Work Phone: Start: 60-53-3643Gwzq scrn 1+ class nonchromoNot In System Ref ProvStart: 03-66-8543Hzeopbhgwx glycosylated l9wRlvoj R Joanna DO Work Phone: Start: 99-96-0260Jbawpymgw c antibodyNot In System Ref ProvStart: 64-06-7914IXT 1&2 AB/AG SCREEN (P24 AG)Not In System Ref ProvStart: 21-26-6594Yyff ia hepatitis b surface antigenNot In System Ref ProvStart: 09-88-1189VZFHMRCY TOTAL(UNKNOWN SYPHILIS STATUS)Not In System Ref ProvStart: 55-83-8228YBNE AND SCREENNot In System Ref ProvStart: 58-29-9829BAQ CBC WITH AUTO DIFFCorey JoannaVizify Work Phone: Start: 08-17-2024 End: 47-23-9687Pkatm dip stick/tablet rgnt non-auto w/o micrscpCorey JoannaVizify Work Phone: Start: 00-51-5306XRI,APTIMA HPV,AGE GDLNCorey JoannaVizify Work Phone: Start: 65-01-8070Icwbd depression screening assessment Jacklyn Campos MD Work Phone: None (qualifier value)Ritu Desai Plan of Treatment DateCare ActivityDetailAuthorStart: 47-87-4057EQgK,Tdap and Td Vaccines (8 - Td or Tdap)DTaP,Tdap and Td Vaccines (8 - Td or Tdap)[facility] RehabilitationWork4 SystemStart: 11-06-2025 End: 03-44-6499KH MFM with or without consultUS MFM with or without consult Imaging Routine 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 trimester History of prior with IUGR History of premature rupture of membranes Expected: 11/06/2025 (Approximate), Expires: 11/06/2025[facility] Work Phone: comment on above:Expected: 11/06/2025 (Approximate), Expires: 11/06/2025Start: 80-19-5608Rsntf BMI ScreeningAdult BMI Screening [facility] SystemStart: 38-85-5729Qkqhxdx ScreeningTobacco Screening [facility] SystemStart: 02-13-2025 End: 64-51-8818Dmzurim encounter ngkcwdkxa07/26/2025 10:50 AM EST Routine [facility] [address] [place] [phone] Santosh Marshall DO [address] [place] [address] N[facility] [place] [facility]BGYNStart: 02-04-2025 End: 04-29-4399Kvofjewlakpi / ancillary services jtmeshuojo65/17/2025 8:00 AM EST Ancillary Procedure [facility] [address] [place] [address] N[facility]S [place] OBGYNStart: 01-28-2025 End: 56-56-0606XJ biophysical profile w non stress testUS biophysical profile w non stress test Imaging Routine Thyroid disease History of prior with IUGR Hypothyroidism, unspecified type Expected: 01/28/2025 (Approximate), Expires: 07/28/2025[facility] Work Phone: comment on above:Expected: 01/28/2025 (Approximate), Expires: 07/28/2025Start: 01-28-2025 End: 43-79-9310BR for pregnancyUS OB follow up transabdominal approach Imaging Routine Thyroid disease History of prior with IUGR Hypothyroidism, unspecified type Expected: 01/28/2025, Expires: 05/28/2025NOMS HealthcareComment on above:Expected: 01/28/2025, Expires: 05/28/2025Start: 01-28-2025 End: 87-94-3387Advpjmb encounter zwgtennbl48/10/2025 8:30 AM EST Routine [facility] [address] [place], [id number] Santosh Marshall, DO [address] [place] [address] ArrivedNOMS [place] OBGYNComment on above:ArrivedStart: 01-14-2025 End: 65-74-5178Vzhiivu encounter procedureNOMS [facility]ina OBGYNComment on above: ArrivedStart: 01-01-2025 End: 15-40-2795Xhddlmo encounter procedureNOMS BCP OBStart: 12-31-2024 End: 69-03-4735Wlznfrw encounter /13/2025 11:00 AM EDT Routine [facility] [address] [place] [address] Santosh Marshall, DO [address] [place] [address] [facility] [place] [facility]BGYNStart: 12-31-2024 End: 29-42-7132Whgbhpjzvzte / ancillary services fqvmpycfpg41/13/2025 10:30 AM EDT Ancillary Procedure [facility] [address] [place] [address] [phone] [facility] OBGYNStart: 12-17-2024 End: 86-09-9333Spslcnn encounter tevdwveel43/29/2025 3:00 PM EDT Office Visit [facility] [address] [place] [address] Santosh Marshall, [address] [place] [address] NOMS BCP OBStart: 12-11-2024 End: 03-91-1630Yudflxk encounter tsbegdxjj17/23/2025 2:15 PM EDT Appointment [facility] - Ultrasound [address] [place] [address] [phone] Health Bryan Hospital - UltrasoundStart: 12-10-2024 End: 82-19-8367KYA panel - Blood by Automated countCBC Lab Routine Diabetes mellitus screening Expected: 12/10/2024 (Approximate), Expires: 12/10/2025[facility] Work Phone: comment on above:Expected: 12/10/2024 (Approximate), Expires: 12/10/2025Start: 12-10-2024 End: 95-85-4199Fxuxrwbwexk of glucose 1 hour after glucose challenge for glucose tolerance testGlucose tolerance, 1 hour Lab Routine Diabetes mellitus screening Expected: 12/10/2024 (Approximate), Expires: 12/10/2025[facility] HealthcareComment on above:Expected: 12/10/2024 (Approximate), Expires: 12/10/2025Start: 12-10-2024 End: 11-76-0588GM for pregnancyUS OB follow up transabdominal approach Imaging Routine Size of fetus inconsistent with dates in second trimester ([facility]) Expected: 12/10/2024, Expires: 04/11/2025[facility] HealthcareComment on above: Expected: 12/10/2024, Expires: 04/11/2025Start: 12-10-2024 End: 13-55-2299Iezqayz encounter procedureNOMS [place] OBGYNComment on above: ArrivedStart: 11-27-2024 End: 86-80-6310Uzilvqa encounter ktijahnxr02/09/2025 3:15 PM EDT Appointment [facility] - Ultrasound [address] [place] [address] [phone] Osteopathic Hospital - UltrasoundStart: 11-20-2024 End: 45-12-6150Fuhmfil encounter /02/2025 3:45 PM EDT Appointment [facility] [address] [place] [address] [phone] County Hospital US ImagingStart: 11-19-2024 Influenza vaccinationInfluenza VaccineNovant Health Mint Hill Medical Centertart: 11-12-2024 End: 55-72-9335Lbcpkug encounter procedureUMESH [place] OBGYNComment on above: ArrivedStart: 11-05-2024 End: 85-98-6975Jppuahk encounter procedureMain Campus Medical Center US ImagingStart: 10-21-2024 End: 77-08-2207GF [facility]FM with or without [facility]US [facility] with or without consult Imaging Routine Thyroid disease affecting History of priorpregnancy with IUGR Expected: 10/21/2024 (Approximate), Expires: 09/20/2025 [facility] Work Phone: comment on above:Expected: 10/21/2024 (Approximate), Expires: 09/20/2025Start: 10-15-2024 End: 20-94-9945Skdjm fetoprotein, maternalAlpha fetoprotein, maternal Lab Routine 17 weeks gestation of ([facility]) Expected: 10/15/2024 (Approximate), Expires: 12/16/2024[facility] Work Phone: comment on above:Expected: 10/15/2024 (Approximate), Expires: 12/16/2024Start: 10-15-2024 End: 08-83-8107Kwspoie encounter procedureNOMS CASSANDRA OBComment on above:Arrived Start: 09-17-2024 End: 28-99-6994Merlfzbinod of glucose 1 hour after glucose challenge for glucose tolerance testGlucose tolerance, 1 hour Lab Routine Diabetes mellitus screening Expected: 09/17/2024 (Approximate), Expires: 09/17/2025[facility] Work Phone: comment on above:Expected: 09/17/2024 (Approximate), Expires: 09/17/2025Start: 09-17-2024 End: 88-29-1922Jmtzkwv encounter gecpfceql45/30/2025 10:50 AM EDT Routine [facility] [address] [place] [address] Santosh Marshall, DO [address] [place] [address] NOMS BCP OBStart: 08-17-2024 End: 81-23-6464LHC/RhABO/Rh Lab Routine Missed menses , unspecified gestational age Expected: 08/17/2024 (Approximate), Expires: 08/17/2025[facility] HealthcareComment on above:Expected: 08/17/2024 (Approximate), Expires: 08/17/2025Start: 08-17-2024 End: 33-08-9743Ijgtp type and Indirect antibody screen panel - BloodType and screen Lab Routine Missed menses , unspecified gestational age Expected: 08/17/2024 (Approximate), Expires: 08/17/2025[facility] HealthcareComment on above:Expected: 08/17/2024 (Approximate), Expires: 08/17/2025Start: 08-17-2024 End: 09-66-2876Lxxai of abuse panel - Urine by Screen methodRapid drug screen, urine Lab Routine , unspecified gestational age Encounter for supervision of normal first in first trimester Expected: 08/17/2024 (Approximate), Expires: 08/17/2025[facility] HealthcareComment on above:Expected: 08/17/2024 (Approximate), Expires: 08/17/2025Start: 08-09-2024 End: 51-00-6119JW Pelvis transvaginalUS OB transvaginal Imaging Routine Missed menses Expected: 08/09/2024, Expires: 11/09/2024[facility] Work Phone: comment on above:Expected: 08/09/2024, Expires: 11/09/2024Start: 28-07-9296BKNLQ-19 ( season)COVID-19 ( season)[facility] Hospital[facility]art: 13-34-9447YHZ (#1)FLU (#1)[facility]art: 32-77-0531Vrqdacaslc ScreeningDepression Screening [facility] SystemStart: 23-66-4651rqagvwryuaOvabvrwblnYcdcqnww:Q3Kxpll: 51-14-6684Iaqwqqpwhwd observation [Identifier] in Cervix by Cyto stainPap Smear [facility] Hospitaltart: 76-15-2330Qdhksryud for malignant neoplasm of cervixPap SmearNovant Health Mint Hill Medical Centertart: 82-53-4730Ipapysfnt B (1 of 3 - 19+ 3-dose series)Hepatitis B (1 of 3 - 19+ 3-dose series)[facility] Start: 05-64-3434Ghmvf BMI ScreeningAdult BMI ScreeningC[facility] Clinic [facility] Start: 24-60-5288AdoH (1 of 2 - MenB 2-Dose Series Bexsero)MenB (1 of 2 - MenB 2-Dose Series Bexsero)[facility] Hospitaltart: 04-90-9281EHU (1 - 3-dose series)HPV (1 - 3-dose series)[facility] Hospitaltart: 2011 Varicella (1 of 2 - 13+ 2-dose series)Varicella (1 of 2 - 13+ 2-dose series) [facility] Hospitaltart: 98-30-2303Fzvbjde ScreeningTobacco Screening [facility] Centertart: 04-14-0617Mmymqhz Diphtheria and Pertussis Vaccines (1 - Tdap)Tetanus Diphtheria and Pertussis Vaccines (1 - Tdap)[facility] Hospital[facility]art: 20-01-0742APM (1 of 1 - Standard series)MMR (1 of 1 - Standard series)[facility] CenterBacteria identified in Urine by Culture Urine culture Microbiology Routine Missed menses Ordered: 08/17/2024[facility] HealthcareComment on above:Ordered: 08/17/2024BC W Auto Differential panel - BloodCBC and differential Lab Routine Missed menses , unspecified gestational age Ordered: 08/17/2024[facility] HealthcareComment on above:Ordered: 08/17/2024HLAMYDIA TRACHOMATIS (GENITO/STI)CHLAMYDIA TRACHOMATIS (GENITO/STI) Lab Routine STD exposure Ordered: 11/12/2024[facility] HealthcareComment on above: Ordered: 11/12/2024ytology Cervical or vaginal smear or scraping studyPap Smear Pathology and Cytology Routine Well woman exam with routine gynecological exam Ordered: 12/12/2023[facility] Work Phone: comment on above:Ordered: 12/12/2023 End: 74-67-1356ETM Extraction and [facility] Work Phone: Comment on above:1 Occurrences starting 05/14/2024 until 05/14/2024, 1 completedHemoglobin A1c/Hemoglobin.total in BloodHemoglobin A1c Lab Routine Missed menses , unspecified gestational age Ordered: 08/17/2024[facility] HealthcareComment on above:Ordered: 08/17/2024Hepatitis B virus surface Ag [Presence] in Serum or Plasma by ImmunoassayHepatitis B surface antigen Lab Routine Missed menses , unspecified gestational age Ordered : 08/17/2024[facility] HealthcareComment on above:Ordered: 08/17/2024Hepatitis C virus Ab [Presence] in Serum or Plasma by ImmunoassayHepatitis C antibody Lab Routine Missed menses , unspecified gestational age Ordered: 08/17/2024[facility] HealthcareComment on above:Ordered: 08/17/2024HIV-1/HIV-2 antigen/antibody combination immunoassayHIV-1 and HIV-2 antibodies Lab Routine Missed menses , unspecified gestational age Ordered: 08/17/2024[facility] HealthcareComment on above:Ordered: 08/17/2024Neisseria gonorrhoeae DNA [Presence] in Unspecified specimen by FRANSISCO with probe detectionNeisseria gonorrhea DNA probe, direct Lab Routine STD exposure Ordered: 11/12/2024[facility] HealthcareComment on above:Ordered: 11/12/2024Reagin Ab [Presence] in Serum by RPRRPR Lab Routine Missed menses , unspecified gestational age Ordered: 08/17/2024[facility] HealthcareComment on above:Ordered: 08/17/2024Rubella antibody, IgGRubella antibody, IgG Lab Routine Missed menses , unspecified gestational age Ordered: 08/17/2024 [facility] HealthcareComment on above:Ordered: 08/17/2024SURESWAB(R) ADVANCED VAGINITIS PLUS, TMASURESWAB(R) ADVANCED VAGINITIS PLUS, TMA Pathology and Cytology Routine Vaginal discharge Ordered: 11/12/2024[facility] Work Phone: comment on above:Ordered: 11/12/2024Thyrotropin [Units/volume] in Serum or PlasmaTSH Lab Routine Missed menses , unspecified gestational age Encounter for supervision of normal first in first trimester Ordered: 08/17/2024[facility] HealthcareComment on above:Ordered: 08/17/2024 End: 83-70-1518Hkdudmldhzq [Units/volume] in Serum or PlasmaTSH Lab Routine Hypothyroidism, unspecified type 9 Occurrences starting 11/12/2024 until 11/12/2025[facility] Work Phone: comment on above:9 Occurrences starting 11/12/2024 until 11/12/2025US Pelvis transvaginalUS OB transvaginal Imaging Routine Missed menses 08/17/2024 9:27 AM [facility] Immunizations Immunization DateImmunizationNotesCare RxrqdfyjReahprkj86-47-7211lhrgxrw toxoid, reduced diphtheria toxoid, and acellular pertussis vaccine, adsorbedNancyzabemonty Thornton [phone]-RuflfRegency Hospital [facility] West08-02-2016 meningococcal B vaccine, fully recombinantNancyzabeth Norberto [phone]-SjoalRegency Hospital [facility] West06-27-2016 meningococcal ACWY vaccine, unspecified formulationNancyzabemonty Thornton [phone]-RhnvdRegency Hospital [facility] West06-27-2016 meningococcal B vaccine, fully recombinantNancyzabeth Norberto [phone]-IjknvRegency Hospital [facility] West04-04-2011 meningococcal ACWY vaccine, unspecified formulationNancyzabeth Norberto [phone]-FzbnhRegency Hospital [facility] West04-04-2011 tetanus toxoid, reduced diphtheria toxoid, and acellular pertussis vaccine, adsorbedElizabeth Norberto [phone]-DlpimRegency Hospital Cleveland West11-12-2009 influenza virus vaccine, unspecified formulationJacklyn Campos MD Work Phone: [phone] [place], [place] 5645207-28-2004DTaP, unspecified formulationElizabeth Norberto [phone]-WpybpReg[facility]07-28-2004 measles, mumps and rubella virus vaccineElizadaniel Thornton [phone]-HudopRegency Hospital [facility]07-28-2004 poliovirus vaccine, unspecified formulationElisampson Thornton [phone]-Sowya[address] [place], [place] 3031011-15-2000DTaP, unspecified formulationElizadaniel Thornton [phone]-Ofmln[address] [place], [place] 3031011-08-1999 measles, mumps and rubella virus vaccineElizabemonty hTornton [phone]-Pkowk[address] [place], [place] 3031011-08-1999 varicella virus vaccineElizadaniel Thornton [phone]-Iijwa[address] [place], [place] 3031007-23-1999DTaP, unspecified formulationElisampson Thornton [phone]-Xakws[address] [place] [address] Primary Shrb58-98-1919QQfL, unspecified formulationElizadaniel Thornton [phone]-Oosku[address] [place] [address] Primary Pcgf41-01-2452LFoH, unspecified formulationYa Thornton [phone]-Iyhnq[address] [place], [place] 3031010-31-1998 hepatitis B vaccine, pediatric or pediatric/adolescent dosageElizadaniel Thornton [phone]-XtmskK[facility] Primary CareNEGATED: Highlighted row has not occurred!39-65-5354onmhggxcb virus vaccine, unspecified formulationDaniel Gray [phone]-PhpeqKettering Health [facility] Digestive HealthNEGATED: Highlighted row has not occurred!37-79-3458bebuzesuo virus vaccine, unspecified formulationRitu Desai [phone]-CdmrmKettering Health [facility] Payers DatePayer CategoryPayerPolicy [id number] [facility] [id number] - [id number] [id number] Health [id number] 2023Medicaid [facility] MEDICA[facility] [id number] Care Other (unspecified)[employer] [id number] 2.840.1.499885.3.57[id number] 2.160.1.604641.3.579.2.86908-96-2871Igpermb6605711 2.0.1.910853.3.579.2.99668-18-4938Hlyiovp8470630 2.840.1.544909.3.579.2.15703-69-9076Emnrreb9638206 2.840.1.608832.3.579.2.45489-12-3060Jdgjnde7182310 2.0.1.094212.3.579.[id number] 2.0.1.864356.3.579.2.24635-13-7503Iwbwrnt6918574 2.840.1.974020.3.579.2.89639-26-6062Xtrohnl6806626 2.840.1.195124.3.579.2.26182-20-1706Eyouylq5621735 2.840.1.814922.3.579.2.24296-44-9060Rugqgpu49061006 2.16840.1.850322.3.579.2.95900-54-6551Uagwkls01942634 2.840.1.004945.3.579.2.03036-53-8231Dhyzqar32664228 2.16840.1.776736.3.579.2.57286-58-9711Giggokj56241958 2.16840.1.128340.3.579.2.83062-37-4683Zmpghxt22301639 2.16840.1.536428.3.579.2.24869-00-7253Nagbyuq68690908 2.16840.1.931454.3.579.2.01200-63-7824Qbtqrxw18346766 2.16840.1.803135.3.579.2.44786-05-8973Mzdajnc84598285 2..1.119800.3.579.2.52719-56-3182Qshpofm12274271 2.840.1.723272.3.579.2.21610-36-5200Proyuwn83404567 2.840.1.957111.3.579.2.76949-32-8821Ovqkvxj30367784 2.840.1.943027.3.579.2.19435-36-6826Bhrgxvs73837480 2..1.636601.3.579.2.69807-42-9929Aqfjkif52550213 2.16840.1.798456.3.579.2.83486-71-1346Dychxlq64963786 2.16840.1.738006.3.579.2.82794-83-6022Zowzekz95860887 2.16840.1.370279.3.579.2.15169-25-4363Tdodzxm61549138 2.840.1.836032.3.579.2.80387-34-4614Gufjxyf514649105 2.16.840.1.919702.3.579.2.80085-32-4085Cshkrdw40995036 2.16.840.1.599433.3.579.2.79331-49-6403Jfbkdpy67810361 2.16.840.1.058146.3.579.2.98447-83-3588Xmtvrfm97846544 2.16.840.1.967863.3.579.2.14503-74-0349Esggpzw75925490 2.16.840.1.307146.3.579.2.59033-12-3703Hydoclx65267174 2.16.840.1.863129.3.579.2.17585-35-3360Zollyxs94724857 2.16.840.1.886008.3.579.2.19746-01-5291Etmjzqh00628923 2.16.840.1.384253.3.579.2.87940-10-9393Nkiwtvl565196046 2.16840.1.613417.3.579.2.481229-38-5607Desyikx022217613 2.16.840.1.894304.3.579.2.627863-50-5001Fonboac077415835 2.16.840.1.758641.3.579.2.624446-92-0142Noxynsf827307479 2.16.840.1.550761.3.579.2.418456-72-4055Dnssplg717700536 2.16.840.1.210379.3.579.2.075020-83-1198Pfjsnye22980303 2.16.840.1.686148.3.579.2.125826-69-5550Otcwdfz18872301 2.16.840.1.452671.3.579.2.247584-70-5530Xicbtwz14868113 2.16.840.1.025021.3.579.2.022635-01-8948Ldgbmvq07241701 2.16.840.1.573551.3.579.2.552507-98-3548Ozretar33177035 2.16.840.1.636791.3.579.2.597178-67-6558Ronfogg62833652 2.16.840.1.048479.3.579.2.903290-53-2399Nycujzg11487450 2.16.840.1.194346.3.579.2.560251-28-3940Rbczgao73226240 2.16.840.1.741251.3.579.2.637632-71-1572Caqnzlg1214580 2.16.840.1.776664.3.579.2.054244-81-7825Gbernha9628826 2.16.840.1.129648.3.579.2.763777-79-9871Ecii-kbt02-27-1834Rkdovzp855913440648 40-64-9637Fhavcib51028535685502452Qegpwke8525807357787-81-8339Uqjxynz5514838955Gxfsydg5205831 2.0.1.964335.3.579.2.376Ttkpaiv646183209112 Social History DateTypeDetailFacilityStart: 05-03-2022 End: 87-90-1725Ardxswb smoking statusNever smoked tobacco (finding)[facility] Primary CareStart: 39-90-5662Lgwqxpv smoking statusNeverMetrohealth [facility] Primary CareStart: 07-12-2023 End: 23-64-6218Mkp Assigned At BirthFeVan Wert County Hospitaltart: 12-12-2023 End: 40-25-8348Totjkplor beverage intakeCurrent drinker of alcohol (finding)[facility] CenterStart: 07-12-2023 End: 74-83-6468Xgounpk of Social functionNOMS HealthcareStart: 82-23-7543Ohazgdy Commentoccasional alcohol useNOMS HealthcareStart: 94-10-2957Wpd assigned at birthNot on fileCrossroads Regional Medical CenterTobacco smoking status NHISTobacco smoking consumption unknownAvita Health System Galion Hospitalexual OrientationSuburban Community Hospital [facility] Start: 07-02-2009 End: 73-30-3362KceDlvtig (finding)[facility] Hospitaltart: 06-30-2024 PregnancyNOMS HealthcareStart: 17-56-9863Sywkdks use and exposureSmokeless tobacco non-userOhioHealth Grant Medical Center SystemStart: 09-24-2024 End: 81-39-6111Gunhbqhau beverage intakeEx-drinker (finding)[facility] SystemThe thought of harming myself has occurred to [facility] Procedure CodeEquipment CodeEquipment Original TextEquipment IdentifierDates Glucose Test Strips, See Instructions, 1 EA, 3, Glucose Test Strips, [facility] [employer] #37, Supply, 166, cm, 10/08/22 15:10:00 EDT, Height/Length Dosing, 57.8, kg, 10/08/22 15:10:00 EDT, Weight DosingStart: 92-18-7349Wnorffn, See Instructions, 100 lancet(s), 3, Lancets, [facility] [employer] #37, Supply, 166, cm, 10/08/22 15:10:00 EDT, Height/Length Dosing, 57.8, kg, 10/08/22 15:10:00 EDT, Weight DosingStart: 91-92-6333Bumeabr Test Strips, See Instructions, 1 EA, 3, Glucose Test Strips, [facility] [employer] #37, Supply, 166, cm, 10/08/22 15:10:00 EDT, Height/Length Dosing, 57.8, kg, 10/08/22 15:10:00 EDT, Weight DosingStart: 11-63-3550Gtadlbf, See Instructions, 100 lancet(s), 3, Lancets, [facility]um [facility] [employer] [facility], Supply, 166, cm, 10/08/22 15:10:00 EDT, Height/Length Dosing, 57.8, kg, 10/08/22 15:10:00 EDT, Weight DosingStart: 21-97-1677Piwfaje Test Strips, See Instructions, 1 EA, 3, Glucose Test Strips, [facility] [employer] [facility], Supply, 166, cm, 10/08/22 15:10:00 EDT, Height/Length Dosing, 57.8, kg, 10/08/22 15:10:00 EDT, Weight DosingStart: 37-37-0555Rxohcqh, See Instructions, 100 lancet(s), 3, Lancets, [facility] [employer] #37, Supply, 166, cm, 10/08/22 15:10:00 EDT, Height/Length Dosing, 57.8, kg, 10/08/22 15:10:00 EDT, Weight DosingStart: 83-35-6591Viqhguy Test Strips, See Instructions, 1 EA, 3, Glucose Test Strips, [facility] [employer] [facility], Supply, 166, cm, 10/08/22 15:10:00 EDT, Height/Length Dosing, 57.8, kg, 10/08/22 15:10:00 EDT, Weight DosingStart: 49-53-7039Vzetpel, See Instructions, 100 lancet(s), 3, Lancets, [facility] [employer] #37, Supply, 166, cm, 10/08/22 15:10:00 EDT, Height/Length Dosing, 57.8, kg, 10/08/22 15:10:00 EDT, Weight DosingStart: 12-13-5497Brlwffl Test Strips, See Instructions, 1 EA, 3, Glucose Test Strips, [facility] [employer] [facility], Supply, 166, cm, 10/08/22 15:10:00 EDT, Height/Length Dosing, 57.8, kg, 10/08/22 15:10:00 EDT, Weight DosingStart: 34-33-6249Fzeeyug, See Instructions, 100 lancet(s), 3, Lancets, [facility] [employer] #37, Supply, 166, cm, 10/08/22 15:10:00 EDT, Height/Length Dosing, 57.8, kg, 10/08/22 15:10:00 EDT, Weight DosingStart: 99-90-5902Hhidorm Test Strips, See Instructions, 1 EA, 3, Glucose Test Strips, [facility] [employer] #37, Supply, 166, cm, 10/08/22 15:10:00 EDT, Height/Length Dosing, 57.8, kg, 10/08/22 15:10:00 EDT, Weight DosingStart: 66-31-8455Ypahilj, See Instructions, 100 lancet(s), 3, Lancets, [facility] #37, Supply, 166, cm, 10/08/22 15:10:00 EDT, Height/Length Dosing, 57.8, kg, 10/08/22 15:10:00 EDT, Weight DosingStart: 22-71-1563Oqocypj Test Strips, See Instructions, 1 EA, 3, Glucose Test Strips, [facility] [employer] #37, Supply, 166, cm, 10/08/22 15:10:00 EDT, Height/Length Dosing, 57.8, kg, 10/08/22 15:10:00 EDT, Weight DosingStart: 67-32-4596Cxlslxm, See Instructions, 100 lancet(s), 3, Lancets, [facility] [employer] #37, Supply, 166, cm, 10/08/22 15:10:00 EDT, Height/Length Dosing, 57.8, kg, 10/08/22 15:10:00 EDT, Weight DosingStart: 85-68-1116Rezginw Test Strips, See Instructions, 1 EA, 3, Glucose Test Strips, DiscValensum [facility] [employer] [facility], Supply, 166, cm, 10/08/22 15:10:00 EDT, Height/Length Dosing, 57.8, kg, 10/08/22 15:10:00 EDT, Weight DosingStart: 73-20-3099Yojhkqh, See Instructions, 100 lancet(s), 3, Lancets, [facility] [employer] #37, Supply, 166, cm, 10/08/22 15:10:00 EDT, Height/Length Dosing, 57.8, kg, 10/08/22 15:10:00 EDT, Weight DosingStart: 82-77-1539Aacifwn Test Strips, See Instructions, 1 EA, 3, Glucose Test Strips, [employer] #37, Supply, 166, cm, 10/08/22 15:10:00 EDT, Height/Length Dosing, 57.8, kg, 10/08/22 15:10:00 EDT, Weight DosingStart: 19-60-5490Ieydbmz, See Instructions, 100 lancet(s), 3, Lancets, [employer] #37, Supply, 166, cm, 10/08/22 15:10:00 EDT, Height/Length Dosing, 57.8, kg, 10/08/22 15:10:00 EDT, Weight DosingStart: 28-69-1529Inzmhks Test Strips, See Instructions, 1 EA, 3, Glucose Test Strips, [employer] #37, Supply, 166, cm, 10/08/22 15:10:00 EDT, Height/Length Dosing, 57.8, kg, 10/08/22 15:10:00 EDT, Weight DosingStart: 49-02-5294Bphxgco, See Instructions, 100 lancet(s), 3, Lancets, [employer] #37, Supply, 166, cm, 10/08/22 15:10:00 EDT, Height/Length Dosing, 57.8, kg, 10/08/22 15:10:00 EDT, Weight DosingStart: 93-58-6767Vfoiyix Test Strips, See Instructions, 1 EA, 3, Glucose Test Strips, [facility] [employer] #37, Supply, 166, cm, 10/08/22 15:10:00 EDT, Height/Length Dosing, 57.8, kg, 10/08/22 15:10:00 EDT, Weight DosingStart: 11-05-2490Oqlocxt, See Instructions, 100 lancet(s), 3, Lancets, [employer] #37, Supply, 166, cm, 10/08/22 15:10:00 EDT, Height/Length Dosing, 57.8, kg, 10/08/22 15:10:00 EDT, Weight DosingStart: 13-10-8734Bbvixit Test Strips, See Instructions, 1 EA, 3, Glucose Test Strips, [employer] #37, Supply, 166, cm, 10/08/22 15:10:00 EDT, Height/Length Dosing, 57.8, kg, 10/08/22 15:10:00 EDT, Weight DosingStart: 08-82-2336Adgjfct, See Instructions, 100 lancet(s), 3, Lancets, [employer] #37, Supply, 166, cm, 10/08/22 15:10:00 EDT, Height/Length Dosing, 57.8, kg, 10/08/22 15:10:00 EDT, Weight DosingStart: 63-01-7017Yua daily as directed & as neededStart: 03-26-2021 Functional Status NwwxYnaodvnirqZmmlukFukuecrw09-48-5236Eowojleyvo StatusN/[facility] Frtw92-05-5552Scfwnnmehm StatusN/[facility] Njyo89-80-0410Rsxuugiuzb StatusN/[facility] Prqn03-67-4551Dpqvttllqd StatusN/[facility] 98-70-0960Pxpxiiuxap StatusN/[facility] Qdqz45-63-5074 Functional StatusN/[facility] Clinical Notes 05-03-2022 to 01-28-2025 Note Date & SdegDmfvBnrocojc83-25-1241 History of Present illness Narrative* Abril Stone [...] nursing note reviewed. Exam conducted with a vascular technician present. Vitals: Estimated body mass index is 26.29 kg/m as calculated from the following: Height as of 11/29/22: 5' 5 . Weight as of this encounter: 158 lb. BP: 124/70 Patient's last menstrual period was 06/16/2024. Assessment/Plan ICD-10-CM 1. Third trimester ([facility]) Z34.93 POCT urinalysis dipstick manually resulted 2. 32 weeks gestation of ([facility]) Z3A.32 3. Thyroid disease E07.9 4. [...] of: Santosh Marshall DO documented in this encounterCrossroads Regional Medical CenterLhujebzsqz89-88-4423 History of Present illness Narrative* Abril Stone [...] nursing note reviewed. Exam conducted with a vascular technician present. Vitals: Estimated body mass index is 26.71 kg/m as calculated from the following: Height as of 23: 5' 5 . Weight as of this encounter: 160 lb 8 oz. BP: 126/72 Patient's last menstrual period was 06/16/2024. Assessment/Plan ICD-10-CM 1. Third trimester ([facility]) Z34.93 POCT urinalysis dipstick manually resulted 2. 30 weeks gestation of ([facility]) Z3A.30 Return OB: Patient presents [...] of: Santosh Marshall DO documented in this encounterCrossroads Regional Medical CenterUcfsyjqynl58-97-9736 History of Present illness Narrative* Daiana Villarreal [...] nursing note reviewed. Exam conducted with a vascular technician present. Vitals: Estimated body mass index is 25.38 kg/m as calculated from the following: Height as of 11/29/22: 5' 5 . Weight as of this encounter: 152 lb 8 oz. BP: 106/68 Patient's last menstrual period was 06/16/2024. ASSESSMENT & PLAN ICD-10-CM 1. Third trimester ([facility]) Z34.93 POCT urinalysis dipstick manually resulted 2. 28 weeks gestation of ([facility]) Z3A.28 Patient presents today for a routine obstetrics appointment. Patient is currently 28w2d with a Estimated Date of Delivery: 03/23/25. Patient had growth scan done prior to today's appointment. Patient will start NST/BPP at 32 weeks. Patient to return to clinic in 2 weeks. Documented by Daiana Villarreal LPN on behalf of: Santosh Marshall DO documented in this encounterCrossroads Regional Medical CenterYhahdxtpal61-22-8126 History of Present illness Narrative* LIS Man [...] ASSESSMENT & PLAN ICD-10-CM 1. Second trimester ([facility]) Z34.92 POCT urinalysis dipstick manually resulted 2. 25 weeks gestation of ([facility]) Z3A.25 3. Diabetes mellitus screening Z13.1 [...] of: LIS Man documented in this encounterNOMS Jgadhcejpu17-61-7933 History of Present illness Narrative* Abril Stone, [...] nursing note reviewed. Exam conducted with a vascular technician present. Vitals: Estimated body mass index is 23.15 kg/m as calculated from the following: Height as of 11/29/22: 5' 5 . Weight as of this encounter: 139 lb 1.9 oz. BP: 110/72 Patient's last menstrual period was 06/16/2024. ASSESSMENT & PLAN ICD-10-CM 1. Second trimester ([facility]) Z34.92 POCT urinalysis dipstick manually resulted 2. 21 weeks gestation of ([facility]) Z3A.21 POCT urinalysis dipstick manually resulted [...] 4 weeks; She is followed closely per [facility] with history of hypothyroidism. Will obtain growth ultrasounds every 4 weeks and begin NST/BPP at 32 weeks. Documented by Abril Stone NP on behalf of: Santosh Marshall DO documented in this encounterCrossroads Regional Medical CenterLbshdwacgg84-34-7624 History of Present illness Narrative* Nadira Salazar [...] risk Have you been seen here at [facility] in a previous ? Recent ER visits or hospitalizations? No Bring blood sugar log or meter with you today? (Please bring them with you for every visit at [facility]) NA Flu vaccine (Jan-May)? NA Any [...] Jacklyn Campos MD, FACOG (she/hers) Maternal- Medicine [facility] [address] [place] [address] This document was created with [employer] technology. Though I make every effort to review the dictation as it is transcribed, on occasion the spoken word can be misinterpreted by the technology leading to inappropriate words, phrases, or sentences. This note is addressed to the requesting provider as a consultation for clinical guidance. Specificmedical abbreviations are occasionally used and those are generally approved by the [place]?Board of?Obstetrics and?Gynecology?as well as?Lucy campos abbreviations. The above plan of care was based solely on the diagnoses for which a consultation was requested. ?More frequent testing may be indicated based on her other medical/obstetrical conditions. The management of other or medical conditions is beyond the scope of requested consultation and will c ontinue to be followed by the primary setter up or primary care provider. Note to patient: [...] opinion of the practitioner. documented in this encounterOhioHealth Van Wert HospitalStudio Bloomed Wpwixl07-15-4898 History of Present illness Narrative* LIS Man [...] ASSESSMENT & PLAN ICD-10-CM 1. Second trimester ([facility]) Z34.92 2. 17 weeks gestation of ([facility]) Z3A.17 POCT urinalysis dipstick manually [...] behalf of: LIS Man documented in this encounterCrossroads Regional Medical CenterVrzhshdzqz16-20-0577 History of Present illness Narrative* Aliya JeronimoKALE [...] nursing note reviewed. Exam conducted with a vascular technician present. Vitals: Estimated body mass index is 22.1 kg/m as calculated from the following: Height as of 11/29/22: 5' 5 . Weight as of this encounter: 132 lb 12.8 oz. BP: 112/70 Patient's last menstrual period was 06/16/2024. ASSESSMENT & PLAN ICD-10-CM 1. 13 weeks gestation of ([facility]) Z3A.13 2. Second trimester ([facility]) Z34.92 3. Thyroid disease E07.9 [...] or undercooked meat, and stay away from [facility]. Patient has been consulted regarding any further do's and don'tsof . Patient voiced understanding and all questions and concerns were answered. Pt has h/o IUGR, thyroid disease, pt being referred to [facility] for level II ultrasound. Pt should be taking 125mcg of levothyroxine. Pt voiced understanding. Pt to start baby aspirin. Orders Placed This Encounter Procedures Glucose tolerance, 1 hour Follow Up: Patient is to return in 4 weeks for routine OB appointment. Documented by Aliya Jeronimo LPN on behalf of: Santosh Marshall DO documented in this encounterCrossroads Regional Medical CenterXmpnaltplp25-44-1773 History of Present illness Narrative* Carmita Tapia, CREDIT FRONT OFFICE DEVELOPER - 08/17/2024 9:30 AM EDT Reason for [...] or undercooked meat, and stay away from [facility]. Patient has also been advised to not change litter boxes and eat 6 small meals a day. Patient has been consulted regarding the do's and don'ts ofpregnancy. Patient was given labs and all questions and concerns were answered. Patient was sent in Magnesium for headaches. Patient given Stokes labs to do with initial labs along [...] concerns or questions. Nurse Visit Completed by: Cramita Tapia LPN documented in this encounterCrossroads Regional Medical CenterSgawmeozwz63-84-7844 NotePatient Education Endocrinology Hypothyroidism Hypothyroidism is when [...] Follow these instructions at home: ??? Take dyst-skk-siqfsrt and prescription medicines only as told by [...] Reviewed: 03/09/2022 Elsevier Patient Education ? 2023 [employer] Obstetrics and Gynecology Health Maintenance, Female Adopting a healthy lifestyle and getting preventive care are important in promoting health and wellness. Ask your health care provider about: ??? The right schedule for you to have regular tests and exams. ??? Things (more content not included)...[facility]04-17-2025 NotePatient Education ENT How to Perform [...] cannot use soap and water, use hand overhead crane operator. 2. Wash your device using the [...] provider. Document Revised: 08/24/2021 Document Reviewed: 08/24/2021 [employer] Patient Education ? 2023 [employer]. Infectious Disease Sinus Infection, Adult A sinus [...] this diagnosed? Your s (more content not included)...[facility]09-23-2024 History of Present illness Narrative* Daiana [...] Diagnosis Date BMI 23.0-23.9, adult Thyroid disease ([facility]) Well woman exam HISTORY PAST MEDICAL [...] nursing note reviewed. Exam conducted with a vascular technician present. Vitals: Estimated body mass index is [...] of: Santosh Marshall DO documented in this encounterCrossroads Regional Medical CenterQhycbrnocm92-20-5247 Hospital Discharge instructions Patient Education 08/08/2023 16:25:47 [...] to help relieve pain. General instructions Take xdal-pxr-bzudcpt and prescription medicines only as told by [...] provider. Document Revised: 10/22/2020 Document Reviewed: 10/22/2020 [employer] Patient Education 2022 [employer]. 08/08/2023 16:25:44 Hemorrhoids Hemorrhoids Hemorrhoids are swollen [...] 3 times a day. General instructions Take rkto-gcm-fmjrubd and prescription medicines only as told by [...] provider. Document Revised: 09/16/2021 Document Reviewed: 09/16/2021 [employer] Patient Education 2022 [employer]. 08/08/2023 16:25:43 Urinary Tract Infection, Adult Urinary [...] Treatment for this condition includes: Antibiotic medicine. Eozl-mhe-rqwsppa medicines to treat discomfort. Drinking enough water [...] Follow these instructions at home: Medicines Take oryq-rre-ylefezv and prescription medicines only as told by [...] provider. Document Revised: 10/17/2020 Document Reviewed: 10/17/2020 [employer] Patient Education 2022 [employer]. 08/08/2023 16:25:41 Hypothyroidism Hypothyroidism Hypothyroidism is when [...] away. Follow these instructions at home: Take kkpl-nir-idflcyu and prescription medicines only as told by [...] provider. Document Revised: 03/09/2022 Document Reviewed: 03/09/2022 [employer] Patient Education 2022 [employer]. [facility] 05-20-2024 Evaluation + Plan note Future Scheduled Tests Laboratory* UA with Cult Rflx 08/08/23 * CBC w/ Auto Diff 02/08/24 * Comprehensive Metabolic Panel 02/08/24 * Thyroid Stimulating Hormone 02/08/24 * Thyroid Stimulating Hormone 05/16/23 * Free T4 02/08/24 * Free T4 05/16/23 [facility] 12-20-2023 Hospital Discharge instructions Patient [...] including vitamins, herbs, eye drops, creams, and nxfs-ajo-mcbynih medicines. ?Whether you are or may be [...] provider. Document Revised: 11/18/2021 Document Reviewed: 10/10/2020 [employer] Patient Education 2022 [employer]. 03/09/2023 08:08:48 Urinary Tract Infection, Adult Urinary [...] Treatment for this condition includes: Antibiotic medicine. Yfhm-yjk-qxhgclc medicines to treat discomfort. Drinking enough water [...] Follow these instructions at home: Medicines Take pqgk-qii-txwwfjf and prescription medicines only as told by [...] provider. Document Revised: 10/17/2020 Document Reviewed: 10/17/2020 [employer] Patient Education 2022 [employer]. 03/09/2023 08:08:46 Hypothyroidism Hypothyroidism Hypothyroidism is when [...] away. Follow these instructions at home: Take hyhr-dim-dbgmzxg and prescription medicines only as told by [...] provider. Document Revised: 03/09/2022 Document Reviewed: 03/09/2022 [employer] Patient Education 2022 [employer]. Follow Up Care 03/07/2023 12:06:45 With:Ya Wang FAM, [facility] Address: [address], [address] [place] [id number] Business (1) When:05/25/2023 Comments:for f/u [facility] 12-04-2023 Hospital Discharge instructions Patient [...] Follow these instructions at home: Medicines Take ghsw-cjx-uybvqel and prescription medicines only as told by [...] provider. Document Revised: 10/17/2020 Document Reviewed: 10/17/2020 [employer] Patient Education 2022 Videofropper. Follow Up Care 02/21/2023 08:19:47 With:Ya Wang FAM, MED Address: [address] [place], [place] [id number] Business (1) When:05/25/2023 Comments:for f/u [facility] 09-12-2023 Hospital Discharge instructions Patient [...] Bulgur wheat. Millet. Quinoa. Bran muffins. Popcorn. Pettigrew wafer crackers. Meats and other proteins Asbury beans, kidney beans, and díaz beans. Soybeans. [...] Cream cheese. Sour cream. Fats and oils Reid. Beverages Soft drinks. Other foods Cakes and [...] Document Reviewed: 07/10/2020 Elsevier Patient Education 2022 Videofropper. Follow Up Care 11/11/2022 12:10:41 With:Daniel Gray CNP Address: When:2 weeks Comments:Following EGD/Colonoscopy. [facility] 08-24-2023 Hospital Discharge instructions Patient [...] serving. Talk with a diet and nutrition services worker (dietitian) if you have questions about specific [...] Bulgur wheat. Millet. Quinoa. Bran muffins. Popcorn. Pettigrew wafer crackers. Meats and other proteins Asbury, kidney, and díaz beans. Soybeans. Split peas. [...] Cream cheese. Sour cream. Fats and oils Reid. Beverages Soft drinks. Other foods Cakes and [...] 03/07/2006 Document Revised: 01/09/2018 Document Reviewed: 01/09/2018 [employer] Patient Education 2020 Videofropper. 11/11/2022 01:00:54 Hemorrhoids Hemorrhoids Hemorrhoids are swollen [...] 3 times a day. General instructions Take rxuq-lew-geifqzy and prescription medicines only as told by [...] provider. Document Revised: 09/16/2021 Document Reviewed: 09/16/2021 [employer] Patient Education 2022 Videofropper. Follow Up Care 11/08/2022 14:59:04 With:Ya Wang FAM, [facility] Address: [address] [place] [address] [facility] (1) When:Within 3 Month(s) Comments:3 mo f/u [facility] 02-13-2023 Hospital Discharge instructions Patient [...] away. Follow these instructions at home: Take axob-kvl-awqlikw and prescription medicines only as told by [...] 03/07/2006 Document Revised: 02/17/2018 Document Reviewed: 02/15/2018 [employer] Patient Education [employer]vite. Follow Up Care 04/05/2022 12:35:49 With:Ritu Desai CNP Address: [address] [place] [phone] When:1 year Comments:or sooner if needed. [facility] Evaluation + Plan note No data available for this section [facility] Evaluation + Plan note Future Appointments Appointment Date:11/30/2022 12:00:00 PM Scheduled Provider:Daniel Gray CNP Location:[facility] Appointment Type:BAD New Patient Appointment Date:04/04/2023 01:00:00 PM Scheduled Provider:Ya Wang Location:[facility] Appointment Type: Open Future Scheduled Tests Laboratory* TSH With T4fr Reflex 10/08/22 [facility] Evaluation + Plan note Future Appointments Appointment Date:04/04/2023 01:00:00 PM Scheduled Provider:Ya Wang Location:[facility] Appointment Type:FM Open Future Scheduled Tests Laboratory* TSH With T4fr Reflex 10/08/22 [facility] Evaluation + Plan note Future Appointments Appointment Date:07/25/2023 10:00:00 AM Scheduled Provider:Ya Wang Location:[facility] Appointment Type:FM Open Future Scheduled Tests Laboratory* T3 Free 02/21/23 * Thyroid Stimulating Hormone 02/21/23 * Free T4 02/21/23 [facility] Evaluation + Plan note Future Appointments Appointment Date:07/25/2023 10:00:00 AM Scheduled Provider:Ya Wang Location:[facility] Appointment Type:FM Open Diagnostic Tests Pending * Urine Culture 02/21/23 Future Scheduled Tests Laboratory* T3 Free 02/21/23 * Thyroid Stimulating Hormone 02/21/23 * Free T4 [facility]23 [facility] App[facility]ments Appointment Date:07/25/2023 10:00:00 AM Scheduled Provider:Ya Wang [facility] Type:FM Open Future Scheduled Tests Laboratory* T3 Free 02/21/23 * Thyroid Stimulating Hormone 02/21/23 * Free T4 02/21/23 Radiology* US Retroperitoneal Complete 03/09/23 [facility] Evaluation + Plan note Future Appointments Appointment Date:07/25/2023 10:00:00 AM Scheduled Provider:Ya Wang [facility] Appoint[facility] Type:FM Open Diagnostic Tests Pending * Urine Culture 03/09/23 Future Scheduled Tests Laboratory* T3 Free 02/21/23 * Thyroid Stimulating Hormone 02/21/23 * Free T4 02/21/23 Radiology* US Retroperitoneal Complete 03/09/23 [facility] Future Appointments Appointment Date:07/12/2023 09:30:00 AM Scheduled Provider:OPAL LUZ PA-C Location:[facility] Appointment Type:URO New Patient Appointment Date:07/25/2023 10:00:00 AM Scheduled Provider:Ya Wang [facility] Type:FM Open Diagnostic Tests Pending * T3 Free 03/22/23 [facility] Future Appointments Appointment Date:07/12/2023 09:30:00 AM Scheduled Provider:OPAL LUZ PA-C Location:[facility] Appointment Type:URO New Patient Appointment Date:07/25/2023 10:00:00 AM Scheduled Provider:Ya Wang [facility] Type:FM Open [facility] Future Appointments Appointment Date:07/25/2023 10:00:00 AM Scheduled Provider:Ya Wang Location:[facility] Appointment Type:FM Open Future Scheduled Tests Laboratory* Thyroid Stimulating Hormone 05/16/23 * Free T4 05/16/23 [facility] evaluation + Plan note Future Scheduled Tests Laboratory* CBC w/ Auto Diff 02/08/24 * Comprehensive Metabolic Panel 02/08/24 * Thyroid Stimulating Hormone 02/08/24 * Free T4 02/08/24 [facility] Future Appointments Appointment Date:07/09/2024 08:00:00 AM Scheduled Provider:Marta Rivas Location:[facility] Appointment Type:FM New Patient - Adult Future Scheduled Tests Laboratory* CBC w/ Auto Diff 02/08/24 * Comprehensive Metabolic Panel 02/08/24 * Thyroid Stimulating Hormone 02/08/24 * Free T4 02/08/24 [facility] Evaluation note* Diagnosis Well woman exam with routine gynecological exam Routine gynecological examination [facility] Family history of autism Family history of psychiatric condition [facility] Diagnosis Missed menses , unspecified gestational age Encounter for supervision of normal first in first trimester Nonintractable headache, unspecified chronicity pattern, unspecified headache type documented in this encounter [facility] Healthcare[facility]* Diagnosis 13 weeks gestation of (HHS-HCC) Second trimester (HHS-HCC) state, incidental Thyroid disease Unspecified disorder of thyroid History of prior with IUGR Diabetes mellitus screening Screening for diabetes mellitus documented in this encounter [facility] Healthcare[facility]* Diagnosis Thyroid disease affecting - Primary History of prior with IUGR [facility] Diagnosis Second trimester (HHS-HCC) state, incidental 17 weeks gestation of (HHS-HCC) documented in this encounter [facility] Healthcare[facility]* Diagnosis 20 weeks gestation [...] of membranes documented [facility]* Diagnosis 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 trimester- Primary History of prior with IUGR History of premature rupture of membranes documented in [facility]* Diagnosis Hypothyroidism, unspecified type- Primary Second trimester (HHS-HCC) state, incidental 21 weeks gestation of (HHS-HCC) Vaginal discharge Leukorrhea, not specified as infective STD exposure documented in this encounter [facility] HealthcareEvaluation [facility]* Diagnosis Size of fetus inconsistent with dates in second trimester (HHS-HCC)- Primary Second trimester (HHS-HCC) state, incidental 25 weeks gestation of (HHS-HCC) Diabetes mellitus screening Screening for diabetes mellitus documented in this encounter [facility]* Diagnosis Third trimester (HHS-HCC) state, incidental 28 weeks gestation of (HHS-HCC) documented in this encounter [facility]* Diagnosis Third trimester (HHS-HCC) state, incidental 30 weeks gestation of (HHS-HCC) documented in this encounter [facility] HealthcareEvaluation note* Diagnosis Third trimester (HHS-HCC) state, incidental 32 weeks gestation of (HHS-HCC) Thyroid disease Unspecified disorder of thyroid History of prior with IUGR Hypothyroidism, unspecified type [facility] No data available for this section [facility] filedocumented in this encounter [facility] filedocumented [facility] filedocumented in this encounter [facility] filedocumented in this encounter [facility] No data available for this section [facility] Summary Purpose Family History No [...] InactivatedComments04/21/2021 7:00 PM2 1:57 PMDate Activated Date ChjyvdfbervQiwjihgn19/14/2021 5:01 PM03/26/2021 7:46 PMDate ActivatedDate InactivatedComments05/30/2021 7:15 AM06/01/2021 2:55 PMDate ActivatedDate InactivatedComments05/12/2021 1:10 PM2 2:16 PMDate ActivatedDate InactivatedComments04/21/2021 7:00 PM2 1:57 PMDate ActivatedDate QlfghhvdygpOrkmsrls17/14/2021 5:01 PM03/26/2021 7:46 PM Additional Source Comments INFORMATION SOURCE (unrecogn ized section and content) DATE CREATED AUTHOR 11/15/2021 [facility] DATE CREATED AUTHOR AUTHOR'S ORGANIZ ATION 09/09/2023 [facility] DATE CREATED AUTHOR AUTHOR'S ORGANIZ ATION 05/21/2024 [facility] DATE CREATED AUTHOR AUTHOR'S ORGANIZ ATION 07/06/2024 [facility] DATE CREATED AUTHOR AUTHOR'S ORGANIZ ATION 07/10/2024 [facility] DATE CREATED AUTHOR AUTHOR'S ORGANIZ ATION 07/13/2024 [facility] DATE CREATED AUTHOR AUTHOR'S ORGANIZ ATION 11/21/2024 [facility] DATE CREATED AUTHOR AUTHOR'S ORGANIZ ATION 12/12/2024 [facility] DATE CREATED AUTHOR AUTHOR'S ORGANIZ ATION 01/28/2025 [facility] EPIC Patient Care team informatio n (unrecognized section and content) Team MemberRelationshipSpecialtyStart DateEnd Date Staci White MD [address] [place] [address] PCP - GeneralInternal Medicine11/29/22Team MemberRelationshipSpecialtyStart Date End Date Staci White MD [address] [place] [address] PCP - GeneralInternal Medicine11/29/22Team MemberRelationshipSpecialtyStart Date End Date Staci White MD [address] [place] [address] PCP - GeneralInternal Medicine11/29/22Team MemberRelationshipSpecialtyStart Date End Date [place] [address] Attending ProviderMedical Clinical Genetics05/14/24Team MemberRelationship SpecialtyStart DateEnd Date Staci White MD [address] [place] [address] PCP - GeneralInternal Medicine11/29/22am MemberRelationshipSpecialtyStart Date End Date Staci White MD [address] [place] [address] PCP - GeneralInternal Medicine11/29/22am MemberRelationshipSpecialtyStart Date End Date Staci White MD [address] [place] [address] PCP - GeneralInternal Medicine11/29/22am MemberRelationshipSpecialtyStart Date End Date Staci White MD [address] [place] [address] PCP - GeneralInternal Medicine11/29/22am MemberRelationshipSpecialtyStart Date End Date Staci White MD PCP - GeneralInternal Medicine04/07/21am MemberRelationshipSpecialtyStart Date End Date Staci White MD [address] [place] [address] PCP - GeneralInternal Medicine11/29/22am MemberRelationshipSpecialtyStart Date End Date Staci White MD PCP - GeneralInternal Medicine04/07/21am MemberRelationshipSpecialtyStart Date End Date Staci White MD PCP - GeneralInternal Medicine04/07/21Te MemberRelationshipSpecialtyStart Date End Date Staci White MD [address] [place] [address] [facility] - [facility]11/29/22Te MemberRelationshipSpecialtyStart Date End Date Staci White MD [address] [place] [address] PCP - GeneralInternal [facility]11/29/22Te MemberRelationshipSpecialtyStart Date End Date Staci White MD [address] [place] [address] [facility]11/29/22Te MemberRelationshipSpecialtyStart Date End Date Staci White MD [address] [place] [address] [facility]11/29/22Te MemberRelationshipSpecialtyStart Date End Date Staci White MD [address] [place] [address] PCP - [facility]11/29/22 Reason for Visit (unrecogniz ed section [...] BE BASED ON THE PRIMARY CLINICAL RECORDS. [facility] [employer] [facility]. provides no warranty or guarantee of the accuracy or completeness of information in this document.
== END 2025-02-22 18:00 | disposition home or self-care (01) | DRG 807 ==
PROVIDERS: Admitting Provider Obstetrics & Gynecology; Visit Provider Obstetrics & Gynecology
DX: O99.284 Endocrine, nutritional and metabolic diseases complicating childbirth (principal); Z37.0 Single live birth; E03.9 Hypothyroidism, unspecified; O70.0 First degree perineal laceration during delivery; Z87.59 Personal history of other complications of pregnancy, childbirth and the puerperium; Z3A.35 35 weeks gestation of pregnancy
CPT/HCPCS: 36415; 59050; 59410; 80307; 85025; 85027; 86850; 86900; 86901; J0290

== ENCOUNTER 2025-02-26 09:16 | Outpatient (OUT) | payer BC, SELFPAY ==
--- OUTSIDE RECORDS SUMMARY | 2025-02-26 09:45 | XMS_ITS | CCD ---
Author Organization [facility] Care Team Providers Care Paediatrician Name Role Phone JOANNA, DR VILLATORO Admitting [...] Care Unavailable Ritu Desai Primary Care Physician [phone] Norberto, Ya L Primary Care Physician [phone] Norberto, Ya L Admitting Unavailable Norberto, Ya [...] Robins Attending Unavailable Ham Robins Attending Unavailable Mrata Almanzar Attending Unavailable Marta Almanzar Admitting Unavailable Unavailable Primary Care Provider UnavailStaci Kirk MD Primary Care Provider [phone] SANTOSH MARSHALL Referring Unavailable STACI WHITE Primary Care Unavailable JACKLYN CAMPOS Attending Unavailable SANTOSH MARSHALL Referring Unavailable STACI WHITE Primary Care Unavailable SANTOSH MARSHALL Referring Unavailable STACI WHITE Primary Care Unavailable SANTOSH MARSHALL Referring Unavailable STACI WHITE Primary Care Unavailable SANTOSH MARSHALL Referring Unavailable STACI WHITE Primary Care Unavailable Staci White MD Primary Care Provider [phone] SANTOSH MARSHALL Attending Unavailable ERUM GUIDRY Attending Unavailable SANTOSH MARSHALL Attending Unavailable ERUM GUIDRY Attending Unavailable SANTOSH MARSHALL Attending Unavailable SANTOSH MARSHALL Attending Unavailable SANTOSH MARSHALL Attending Unavailable Medications Current Medications MedicationDrug Class(es)DatesSig (Normalized)Sig (Original)acetaminophen 500 mg oral tablet (3 sources)Start: 37-50-5983qpxw 2 tablets by mouth every eight hours [...] oral capsule (2 sources)Cephalosporin AntibacterialStart: 03-09-2023 End: 80-75-9229jbsj 1 capsule by mouth four times dailyKeflex 500 mg Cap 500 mg = 1 cap(s), Oral, QID, X 7 day(s), # 28 cap(s), Refills(s) 0, Pharmacy: [facility], 166, cm, 03/09/23 7:33:00 EST, Height/Length Dosing, 58.7, kg, 03/09/23 7:33:00 EST, Weight Dosing Start Date: 03/09/23 Stop Date: 03/16/23 Status: OrderedColace (3 sources)Start: 69-25-5885Tljwsf Refills(s) 0 Start Date: 11/30/22 Status: OrderedStart: 06-01-2021 End: 01-76-7474ukea 1 capsule by mouth in the morning, then take 1 capsule by mouth at bedtimedocusate sodium (COLACE) 100 mg capsule Take 1 capsule (100 mg total) by mouth in the morning and 1capsule (100 mg total) before bedtime. 10 capsule 06/01/2021 11/05/2024 Discontinued (Therapy completed)Flonase (3 sources)CorticosteroidStart: 78-77-1751Mbzvzel Nasal, Daily, Refill(s) 0 Start Date: 09/10/18 Status: OrderedFREESTYLE LITE METER kit (3 sources)Start: 71-67-2463WMASYWFJN LITE METER kit See Admin Instructions. 03/26/2021 Activehydrocortisone acetate 0.025 mg/mg / lidocaine hydrochloride 0.03 mg/mg rectal gel (2 sources)Antiarrhythmic, Corticosteroid, Amide Local AnestheticStart: 63-29-3259wdslibrpyvukem-lidocaine 2.5%-3% rectal gel with applicator 1 carmen, Rectal, BID, 60 EA, Refill(s) 1,[id number], 166, cm, 11/11/22 9:28:00 EDT, Height/Length Dosing, 59.4, kg, 11/11/22 9:28:00 EDT, Weight Dosing Start Date: 11/19/22 Status: OrderedStart: 59-50-7750nwcyvngxjuatgu-lidocaine 2.5%-3% rectal gel with applicator 1 carmen, Rectal, BID, 60 EA, Refill(s) 1,[facility], 166, cm, 11/11/22 9:28:00 EDT, Height/Length Dosing, 59.4, kg, 11/11/22 9:28:00 EDT, Weight Dosing Start Date: 11/11/22 Status: Orderedlevothyroxine sodium 0.125 mg oral tablet (20 sources)l-ThyroxineStart: 09-17-2024 End: 70-42-1168gcwg 1 tablet by mouth before mealtimelevothyroxine (Synthroid) 125 MCG tablet Indications: Thyroid disease Take 1 tablet (125 mcg) by mouth in the morning. Take before meals. 30 tablet 11 09/17/2024 09/17/2025 ActiveStart: 08-22-2024 End: 96-46-1054hvcx 1 tablet by mouth before mealtimelevothyroxine (Synthroid) 25 MCG tablet Indications: Thyroid disease Take 1 tablet (25 mcg) by mouth in the morning. Take before meals. 30 tablet 11 08/22/2024 10/15/2024 Discontinued Start: 04-72-7833heqs 1 tablet by mouth once dailySynthroid 100 mcg Tab 100 mcg = 1 tab(s), Oral, Daily, # 90 tab(s), Refills(s) 0, Pharmacy: [facility], 166, cm, 08/08/23 15:44:00 EDT, Height/Length Dosing, 56.1, kg, 08/08/23 15:51:00 EDT, Weight Dosing Start Date: 06/19/24 Status: Ordered Quantity: 90.0 Unit: tab(s) Repeat number: 1Start: 06-19-2024 End: 89-35-3452mgzc 1 tablet by mouth once dailylevothyroxine (Synthroid, Levoxyl) 100 MCG tablet Take 100 mcg by mouth Daily 06/19/2024 10/15/2024 DiscontinuedStart: 19-83-7098tjkk 1 tablet by mouth once dailySynthroid 100 mcg Tab 100 mcg = 1 tab(s), Oral, Daily, # 90 tab(s), Refills(s) 1, Pharmacy: [facility], 166, cm, 05/16/23 14:25:00 EST, Height/Length Dosing, 56.7, kg, 05/16/23 14:25:00 EST, Weight Dosing Start Date: 05/16/23 Status: OrderedStart: 47-90-0699vgvf 1 tablet by mouth once dailySynthroid 112 mcg Tab 112 mcg = 1 tab(s), Oral, Daily, # 60 tab(s), Refills(s) 0, Pharmacy: [facility], 166, cm, 11/30/22 12:12:00 EDT, Height/Length Dosing, 58.8, kg, 11/30/22 12:12:00 EDT, Weight Dosing Start Date: 02/07/23 Status: OrderedStart: 51-85-6646qgxh 1 tablet by mouth once dailySynthroid 112 mcg Tab 112 mcg = 1 tab(s), Oral, Daily, # 60 tab(s), Refills(s) 0, Pharmacy: [facility], 166, cm, 10/08/22 15:10:00 EDT, Height/Length Dosing, 57.8, kg, 10/08/22 15:10:00 EDT, Weight Dosing Start Date: 10/08/22 Status: OrderedStart: 10-08-2022 End: 61-04-9778mahh 1 tablet by mouth in the morninglevothyroxine (Synthroid, Levoxyl) 112 MCG tablet Take 112 mcg by mouth in the morning. 10/08/2022 0 08/17/2024 DiscontinuedStart: 73-62-5078wcyk 1 tablet by mouth once daily levothyroxine 125 mcg (0.125 mg) Tab 125 mcg = 1 tab(s), Oral, Daily, # 90 tab(s), Refills(s) 3, Pharmacy: [facility], 166, cm, 05/03/22 14:21:00 EST, Height/Length Dosing, 61.2, kg, 05/03/22 14:21:00 EST, Weight Dosing Start Date: 05/03/22 Status: Orderedlevothyroxine (SYNTHROID, LEVOTHROID) 100 MCG tablet Take 125 mcg by mouth in the morning. Activeloratadine 10 mg oral tablet (13 sources)Start: 16-26-6214ixcb 1 tablet by mouth once dailyClaritin 10 mg Tab 10 mg, Oral, Daily, # 10 tab(s), Refills(s) 0, Pharmacy: [facility], 166, cm, 12/05/19 13:03:00 EDT, Height/Length Dosing, 61.6, kg, 12/05/19 13:03:00 EDT, Weight Dosing Start Date: 12/05/19 Status: Ordered Quantity: 10.0 Unit: tab(s) Repeat number: 1magnesium oxide 400 mg oral tablet (5 sources)Start: 08-17-2024 End: 64-19-7704nipd 1 tablet by mouth once dailymagnesium oxide (Mag-Ox) 400 MG tablet Indications: Nonintractable headache, unspecified chronicitypattern, unspecified headache type Take 1 tablet (400 mg) by mouth Daily 30 tablet 6 08/17/2024 09/16/2024 Activephenazopyridine hydrochloride 200 mg oral tablet (4 sources)Start: 03-09-2023 End: 12-91-9586qtkg 1 tablet by mouth three times dailyPyridium 200 mg Tab 200 mg = 1 tab(s), Oral, TID, X 3 day(s), # 9 tab(s), Refills(s) 0, Pharmacy: [facility], 166, cm, 03/09/23 7:33:00 EST, Height/Length Dosing, 58.7, kg, 03/09/23 7:33:00 EST, Weight Dosing Start Date: 03/09/23 Stop Date: 03/12/23 Status: OrderedStart: 02-21-2023 End: 98-94-5756mbnc 1 tablet by mouth three times dailyPyridium 200 mg Tab 200 mg = 1 tab(s), Oral, TID, X 3 day(s), # 9 tab(s), Refills(s) 0, Pharmacy: [facility] #[facility], 166, cm, 02/21/23 13:06:00 EST, Height/Length Dosing, 58.6, kg, 02/21/23 13:06:00 EST, Weight Dosing Start Date: 02/21/23 Stop Date: 02/24/23 Status: OrderedPNV no.95/ferrous fum/folic ac ( ORAL) (3 sources)PNV no.95/ferrous fum/folic ac ( ORAL) Take by mouth in the morning. ActivePNV no.95/ferrous fum/folic ac ( ORAL) Take by mouth daily. Activepolyethylene glycol 3350 844100 mg / potassium chloride 1480 mg / sodium bicarbonate 5720 mg / sodium chloride 98174 mg powder for oral solution (11 sources)Osmotic LaxativeStart: 08-70-5592XcQGBDWN Paige oral powder for reconstitution See Instructions, 1 EA, Refill(s) 0, Prior to colonoscopy., [facility] #[id number], 166, cm, 11/30/22 12:12:00 EDT, Height/Length Dosing, 58.8, kg, 11/30/22 12:12:00 EDT, Weight Dosing Start Date: 11/30/22 Status: Ordered Quantity: 1.0 Unit: EA Repeat number: 1Prenatal MV-Min-Fe Fum-FA-DHA ( 1 PO) (20 sources) MV-Min-Fe Fum-FA-DHA ( 1 PO) Take by mouth Active Completed/Discontinued Medications MedicationDrug Class(es)DatesSig (Normalized)Sig (Original)ibuprofen 800 mg oral tablet (2 sources)Nonsteroidal Anti-inflammatory DrugStart: 06-01-2021 End: 20-43-5212wibw 1 tablet by mouth every eight hours as neededibuprofen (ADVIL,MOTRIN) 800 mg tablet Take 1 tablet (800 mg total) by mouth every 8 (eight) hours as needed (cramping). 30 tablet 06/01/2021 11/05/2024 Discontinued (Therapy completed)nitrofurantoin, macrocrystals 25 mg / nitrofurantoin, monohydrate 75 mg oral capsule (6 sources)Nitrofuran AntibacterialStart: 09-11-2024 End: 39-12-9949qiru 1 capsule by mouth in the morningnitrofurantoin, macrocrystal-monohydrate, (Macrobid) 100 MG capsule Indications: Urinary tract infection without hematuria, site unspecified Take 1 capsule (100 mg) by mouth in the morning and 1 capsule (100 mg) before bedtime. Do all this for 7 days. 14 capsule 09/11/2024 09/18/2024 ExpiredStart: 02-21-2023 End: 91-76-2391mryx 1 capsule by mouth every twelve hoursMacrobid 100 mg Cap 100 mg = 1 cap(s), Oral, q12hr, X 5 day(s), # 10 cap(s), Refills(s) 0, Pharmacy: [facility], 166, cm, 02/21/23 13:06:00 EST, Height/Length Dosing, 58.6, kg, 02/21/23 13:06:00 EST, Weight Dosing Start Date: 02/21/23 Stop Date: 02/26/23 Status: Orderedprogesterone (FIRST-PROGESTERONE VGS) 200 mg suppository (2 sources)Start: 03-26-2021 End: 61-35-1927csjfommidaqq (FIRST-PROGESTERONE VGS) 200 mg suppository Indications: Hypothyroid [...] Problems Problem ClassificationProblemDateDocumented DateEpisodic/ChronicAbdominal pain (13 sources)Abdominal bpcx56-17-1913FclzjfwcRkjfhpegh infection; unspecified site (1 source)Infection due to Escherichia coli; Translations: [Unspecified Escherichia coli [E. coli] as the cause of diseases classified elsewhere]Onset: 82-61-5655LjyppuglClehhuro or abnormal glucose tolerance complicating ; childbirth; or the puerperium (18 sources)History of gestational diabetes mellitus; Translations: [Gestational diabetes mellitus]Onset: 05-19-2021 Resolved: 360127-17-7747KobhwyoaFpmawkmyntndx symptoms and ill-defined conditions (4 sources)Dysuria; Translations: [Dysuria]Onset: 53-31-1428ZyvxwiawSrydbqvt; including migraine (13 sources)Migraine without upak25-34-6019TgbfdulZbekdupl; including migraine (6 sources)Headache; Translations: [Nonintractable headache, unspecified chronicity pattern, unspecified headache type]33-73-2613OrrlfkymEjrdyngwug during ; abruptio placenta; placenta previa (4 sources)Low lying placenta; Translations: [Low lying placenta NOS or without hemorrhage, unspecified trimester]Onset: 573562-35-8668JcfytwrxBnjxsmbgtop (15 sources)Hemorrhoids; Translations: [Unspecified hemorrhoids]Onset: 84-37-5792TcmnekrfBdmniidttljdw and screening for infectious disease (4 sources)Encounter for screening for human papillomavirus (HPV); Translations: [Contact with and (suspected)exposure to infections with a predominantly sexual mode of transmission]Onset: 033542-81-5917IdgadmwrGszkvinmttns; infection of eye (except that caused by tuberculosis or sexually transmitteddisease) (4 sources)Aoqsutmvs54-49-9078RjjfidgzOdwhqhzdd disorders (15 sources)Dysmenorrhea; Translations: [Dysmenorrhea, unspecified]Onset: 395521-41-9831TqpaivqKcnjq complications of (5 sources)Endocrine, nutritional and metabolic diseases complicating , unspecified trimester; Translations: [ENDOCRN NUTR MET DZ COMP PG UNS TRI]Onset: 07-78-0198RxntolqkQrfkj complications of (2 sources)Thyroid disease in mother complicating , childbirth AND/OR puerperium; Translations: [Endocrine, nutritional and metabolic diseases complicating , unspecified trimester]92-43-5908AavhkufrYscjy complications of (8 sources)Hypothyroidism in ; Translations: [Endocrine, nutritional and metabolic diseases complicating , unspecified trimester]Onset: 401215-49-1229TzhukurqPnpue complications of (3 sources)History of gynecological disorder; Translations: [Supervision of with other poor reproductive or obstetric history, unspecified trimester]Onset: 481626-26-4457HfypcmtxEozbm complications of (2 sources) size does not accord with dates; Translations: [Uterine size- date discrepancy, second trimester]87-04-0870AteoenuoAjzyw endocrine disorders (4 sources)Hcdwflajgxge17-47-0586EsmuowoAsmrm eye disorders (4 sources)Eye zinqazw28-93-6783ZdgqoflpCcgol female genital disorders (4 sources)Lesion of -36-0952ChlrrehcJydsu female genital disorders (1 source)Noninflammatory disorder of vulva; Translations: [Other specified noninflammatory disorders of vulva and perineum]Onset: 61-42-7866DphfcllnOjwek female genital disorders (2 sources)Vaginal discharge; Translations: [Other specified noninflammatory disorders of vagina]62-36-3795NulkmqpdEiwzk gastrointestinal disorders (4 sources)Sykytvczjsxa14-40-5862BvkwexwvAuccn gastrointestinal disorders (1 source)Digestive system finding; Translations: [Other specified symptoms and signs involving the digestivesystem and abdomen]Onset: 44-65-0236FbyqttciQpnxa gastrointestinal disorders (1 source)Constipation, unspecified; Translations: [Constipation, unspecified] Onset: 43-51-4738XxcfjqykSefwn inflammatory condition of skin (4 sources)Pruritus ani; Translations: [Pruritus ani]Onset: 91-80-5574Qmwqklmf Other lower respiratory disease (13 sources)H/O: respiratory ezquite01-66-3270PzxyadepBkcko nutritional; endocrine; and metabolic disorders (12 sources)Weight anpn66-34-4067MzrbltdjJxtnr nutritional; endocrine; and metabolic disorders (1 source)Abnormal weight loss; Translations: [Abnormal weight loss]Onset: 44-72-9427QzfsjwfrFrsff and delivery including normal (20 sources)Encounter for supervision of normal first , first trimester; Translations: [Encounter for supervision of normal , unspecified, unspecified trimester]Onset: 83-59-9142FimahrwlXcnzr screening for suspected conditions (not mental disorders or infectious disease) (13 sources)Encounter for screening for malignant neoplasm of cervix; Translations: [Encounter for screening, unspecified]Onset: 12-09-2020 EpisodicResidual codes; unclassified (3 sources)Body mass index 20-24 - normal; Translations: [Body mass index (BMI) 21.0-21.9, adult]Onset: 60-96-5158NwougdfqPdhqnfdl codes; unclassified (1 source)Family history of malignant neoplasm of digestive organ; Translations: [Family history of malignantneoplasm of digestive organs]Onset: 11-30-2022 EpisodicResidual codes; unclassified (11 sources)Family history of cancer of -74-6479JxdvgnuuTvkahajo codes; unclassified (4 sources)Family history of autism; Translations: [Family history of other mental and behavioral disorders]Onset: 549418-48-6737FzgvtivmAggvdoiz codes; unclassified (2 sources)Gestation period, 13 weeks; Translations: [13 weeks gestation of ]63-81-9251GstbzfxhNakamajb codes; unclassified (15 sources)History of previous intrauterine growth restricted ; Translations: [Personal history of other complications of , childbirth and the puerperium]Onset: 217139-05-4200JqlmwjwuKmxijomh codes; unclassified (2 sources)Gestation period, 17 weeks; Translations: [17 weeks gestation of ]95-14-1335PylqplkjVhcvjkpo codes; unclassified (1 source)Gestation period, 20 weeks; Translations: [20 weeks gestation of ]38-02-2799GjyvbfulYrdasptl codes; unclassified (7 sources)History of premature rupture of membranes; Translations: [Personal history of other complications of , childbirth and the puerperium]Onset: 944070-69-5777LubavyciDaqlxxov codes; unclassified (2 sources)Gestation period, 21 weeks; Translations: [21 weeks gestation of ]62-67-8941LfvncegyTfgsisji codes; unclassified (2 sources)Personal history of other complications of , childbirth and the puerperium; Translations: [Personal history of other complications of , childbirth and the puerperium]Onset: 95-56-4570FnvoucomApkxmymu codes; unclassified (1 source)20 weeks gestation of ; Translations: [20 weeks gestation of ]Onset: 37-92-3863QvknwbycRttihxtc codes; unclassified (2 sources)Gestation period, 25 weeks; Translations: [25 weeks gestation of ]84-85-1290UkkbmicdKuhlcvje codes; unclassified (2 sources)Gestation period, 28 weeks; Translations: [28 weeks gestation of ]87-24-7208PltlepqePemqricr codes; unclassified (2 sources)Gestation period, 30 weeks; Translations: [30 weeks gestation of ]02-02-6474PqprdhflAybexika codes; unclassified (2 sources)Gestation period, 32 weeks; Translations: [32 weeks gestation of ]89-86-1884FbpexmjzPnadqxr disorders (20 sources)Hypothyroidism, unspecified; Translations: [Hypothyroidism]Onset: 54-27-9756QwycfmjKgyelcy disorders (12 sources)Disorder of thyroid, unspecified; Translations: [Disorder of thyroid gland]Onset: 36-72-3751DtiticsdRfmtgfmlezsd (13 sources)Body mass index 20-24 - yjsneh31-80-2213Mruiqbhoedsn (13 sources)Qow--53csalik11-47-2751Hudflbqngrsb (5 sources)Pain of knee awpevo11-14-1385Tuyjobjeredn (8 sources)Patient encounter zdmnyh67-53-9596Zyuyjwjfttyy (3 sources)Rectum ftfwnyl55-10-5940Tdfwbstafbxe (8 sources)Finding of sensation of zwalsxt13-87-4354Wkxubywfrgmj (1 source)Hx previous FGROnset: 64-56-6689Wmawbva tract infections (13 sources)Acute cystitis; Translations: [Acute cystitis without hematuria] Onset: 31-95-4790Fyhsozon Past or Other Problems Problem ClassificationProblemDateDocumented DateEpisodic/ChronicEarly or threatened labor (6 sources)Premature uterine contraction; Translations: [False labor before 37 completed weeks of gestation, third trimester]Onset: 04-21-2021 Resolved: 474412-67-2232HofptdfjTwyqv complications of (3 sources)Disorder of ; Translations: [Maternal care for other known or suspected poor growth,unspecified trimester, not applicable or unspecified]Onset: 03-03-2021 Resolved: 700178-17-2706UrzhjlkcXylkr complications of (3 sources)Short cervical length in ; Translations: [Cervical shortening, third trimester]Onset: 05-19-2021 Resolved: 863468-12-7359YefeevlnInpre complications of (2 sources)Endocrine, nutritional and metabolic diseases complicating , second trimester; Translations: [Endocrine, nutritional and metabolic diseases complicating , second trimester]Onset: 78-30-7952MyqbqcwoHpuvl female genital disorders (4 sources)Other specified noninflammatory disorders of vagina; Translations: [OTH SPEC NONINFLAMMATORY D/O VAGINA]Onset: 15-82-7966JmttfkytHxhqwcndseldwc and other problems of amniotic cavity (3 sources) premature rupture of membranes ; Translations: [ premature rupture of membranes, unspecified as to length of time between rupture and onset of labor, unspecified trimester]Onset: 05-30-2021 Resolved: 928923-70-9763Mweibrqr Results Test NameValueInterpretationReference RangeFacilityUrinalysis macro (dipstick) panel (U)on 85-87-7357Qaenyejgh, UANegativeNegative - 4(70) +++ mg/dLNOMS HealthcareBlood, UANegativeNegative [...] mg/dLNOMS HealthcareNOMS HealthcareUrinalysis macro (dipstick) panel (U)on 77-15-9338Zabirslny, UA NegativeNegative - 4(70) +++ mg/dLNOMS HealthcareBlood, [...] - 1.03[facility] Urobilinogen, UA0.20.2 - 12 mg/dLNOAZ HealthcareNOMS HealthcareUS OB FOLLOW UP TRANSABDOMINAL APPROACHon 50-42-3496HF OB FOLLOW UP TRANSABDOMINAL APPROACH FINDINGS: A [...] Delivery: 03/23/25 Gestational Age as of 12/10/2024: 04t6sXxbgqrpjcp macro (dipstick) panel (U)on 83-80-6296Zmdcgnlno, UANegativeNegative - 4(70) +++ mg/dLNOMS HealthcareBlood, UANegativeNegative - 50 Cedric/mcLNOMS HealthcareClarity, UAClearNOMS Healthcare Color, UAYellowNOMS HealthcareGlucose, UANegativeNegative - 2000(110) ++++ mg/dL N[facility] HealthcareInterpretation and review of laboratory resultsNormalNOAZ HealthcareKetones, UANegativeNegative - 160(16) ++++ mg/dLNOAZ Healthcare Leukocytes, UANegativeNegative - 500+++ Ayana/mcLNOMS HealthcareNitrite, UA NegativeNegative - PositiveNOMS HealthcarepH, UA7.05 - 9NOMS HealthcareProtein, UANegativeNegative - 2000(20) ++++ mg/dLNOAZ HealthcareSpec Grav, UA1.0101 - 1.03NOAZ HealthcareUrobilinogen, UA0.20.2 - 12 mg/dLNOBarnes-Jewish West County HospitalNOAZ HealthcareGLUCOSE TOLERANCE 3 HOURon 46-12-5408MAMMNVK TOLERANCE 3 HOURHighmg/dL NOM HealthcareComment on above:GLU FAST 89 (<95) Col: 12/12/24 0842 GLU 1HR 178 (<180) Col: 12/12/24 0949 GLU 2HR 156H (<155) Col: 12/12/24 1041 GLU 3HR 103 (<140) Col: 12/12/24 1147 Interpretation and review of laboratory resultsAbnormalNOAZ HealthcareCLINISYNC NOM HealthcareALL CBC WITH AUTO DIFFon 05-69-1358BWZSRIAHR ABSOLUTE NHHY8CTZHBarnes-Jewish West County HospitalBasophils/100 WBC (Bld)0.3 %0.2 - 2.0 %NOMS HealthcareEosinophils/100 WBC (Bld)0.5 %Low0.9 - 7.0 %[facility] CenterErythrocyte distribution width (RBC) [Ratio]12.4 %11.0 - 15.0 %NOMEastern Missouri State HospitalHematocrit (Bld) [Volume fraction]32.4 %Low36.0 - 48.0 %[facility] CenterHemoglobin (Bld) [Mass/Vol]10.8 g/dLLow12.0 - 16.0 g/dLNOBarnes-Jewish West County HospitalIMMATURE GRANULOCYTES ABS AUTO0.03NOBarnes-[facility] Hospital Immature granulocytes/100 WBC (Bld)0.3 %0.0 - 0.5 %[facility] CenterInterpretation and review of laboratory resultsAbnormalCameron Regional Medical CenterLYMPHOCYTES ABSOLUTE AUTO1.3NOBarnes-Jewish West County HospitalLymphocytes/100 WBC (Bld)14.4 %Low20.5 - 60.0 %[facility] HospitalH (RBC) [Entitic mass]33.2 pg26.7 - 34.0 pgNOBarnes-Jewish West County HospitalMCHC (RBC) [Mass/Vol]33.3 g/dL29.9 - 35.2 g/dLNOAZ HealthcareMCV (RBC) [Entitic vol]99.7 fL High81.0 - 99.0 fLNOAZ HealthcareMONOCYTES ABSOLUTE AUTO0.4N[facility] Healthcare Monocytes/100 WBC (Bld)4.6 %1.7 - 12.0 %NOMS HealthcareNEUTROPHILS ABSOLUTE AUTO 7HighNOAZ HealthcareNeutrophils/100 WBC (Bld)79.9 %High43.0 - 75.0 %NOMS HealthcarePlatelet mean volume (Bld) [Entitic vol]10.5 fL9.5 - 13.5 fLNOAZ HealthcareTBH EO #0NOMS HealthcareTBH BIN660EAFY HealthcareTBH RBC3.25LowNOMS HealthcareTBH WBC8.8NOAZ HealthcareCLINISYNCNOMS HealthcareUrinalysis macro (dipstick) panel (U)on 86-69-2200Zrlgozhfr, UANegativeNegative - 4(70) +++ mg/dL N[facility] HealthcareBlood, UANegativeNegative - 50 Cedric/mcLNOMS HealthcareClarity, UA ClearNOMS HealthcareColor, UAYellowNOMS HealthcareGlucose, UANegativeNegative - 1999(110) ++++ mg/dLNOMS HealthcareInterpretation and review of laboratory resultsNormalNOAZ HealthcareKetones, UANegativeNegative - 160(16) ++++ mg/dLNOMS HealthcareLeukocytes, UANegativeNegative - 500+++ Ayana/mcLNOMS HealthcareNitrite, UANegativeNegative - PositiveNOMS HealthcarepH, UA75 - 9NOMS HealthcareProtein, UANegativeNegative - 2000(20) ++++ mg/dLNOMS HealthcareSpec Grav, UA1.011 - 1.03 NOMS HealthcareUrobilinogen, UA0.20.2 - 12 mg/dLNOAZ HealthcareNOAZ Healthcare Urinalysis macro (dipstick) panel (U)on 91-22-9986Uxhtnjvbh, UANegativeNegative - 4(70) +++ mg/dLNOMS HealthcareBlood, UANegativeNegative - 50 Cedric/mcLNOMS HealthcareClarity, UAClearNOMS HealthcareColor, UAYellowNOMS HealthcareGlucose, UAPositiveNegative - 1999(110) ++++ mg/dLNOAZ HealthcareInterpretation and review of laboratory resultsAbnormalNOMS HealthcareKetones, UANegativeNegative - 160(16) ++++ mg/dLNOAZ HealthcareLeukocytes, UANegativeNegative - 500+++ Ayana/mcL NOM HealthcareNitrite, UANegativeNegative - PositiveNOMS HealthcarepH, UA65 - 9 NOMS HealthcareProtein, UANegativeNegative - 1999(20) ++++ mg/dLNOAZ Healthcare Spec Grav, UA1.0151 - 1.03NOAZ HealthcareUrobilinogen, UA1.00.2 - 12 mg/dLNOAZ HealthcareNOAZ HealthcareALL THYROID STIM HORMONEon 50-66-7746BRK Qn2.68 m[IU]/L [facility] CenterCLINISYNCNOMS HealthcareAFP, SERUM, OPEN SPINA BIFIDAon 30-86-6489HZA MOM0.82.[facility] CenterAFP VALUE34.7 ng/mL.[facility] HealthcareCOMMENT: Comment.[facility] Medical CenterComment on above:Alie Moon, Ph.D., [facility] Director References: Available Upon Request. Multiples Of Median Cutoffs For AFP Elevations Murphy 2.5 Black 2.8 IDD 2.0 Twins 4.5 Abbreviation Definitions IDD - Insulin Dep Diabetes OSBR - Open Spina Bifida Risk For further inquiries contact [facility] at [phone]. This test was developed and its performance characteristics determined by [employer]. It has not been cleared or approved by the Food and Drug Administration. Performed at: [facility] [address], [place] [id number] Development Intern: Pily Meraz [facility], Phone: [phone] GEST. AGE ON COLLECTION DATE17.3. weeksNOAZ HealthcareGESTAT. AGE BASED ONLMP. [facility] HealthcareComment on above:Recalculations are not recommended when gestational dating by LMP and ultrasound are within 10 days. INSULIN DEP DIABETESNo.[facility] HealthcareINTERPRETATIONComment.[facility] Comment on above:Interpretation: Screen [...] Customer Services to discuss available options. The [employer] recommends amniocentesis be offered to women age 35 and older. MATERNAL AGE AT EDD27.1. yrNOAZ HealthcareMULTIPLE GESTATIONNo.[facility] Healthcare OSBR RISK 1 [id number].[facility] HealthcareRACECaucasian.[facility] HealthcareRESULTSReport. [facility] HealthcareTEST RESULTS:Negative.[facility] CenterQxrxxzskjoSMDGAD974. lbsNOAZ HealthcarePREGNANCY N N LMP [id number] 2 17 N 1 Y 134 N N N N N White/ CLINISYNCNOBarnes-Jewish West County HospitalUrinalysis macro (dipstick) panel (U)on 10-15-2024 Bilirubin, UANegativeNegative - 4(70) +++ mg/dLNOAZ HealthcareBlood, UANegative Negative - 50 Cedric/mcLNOAZ HealthcareClarity, UAClearNOAZ HealthcareColor, UA YellowNOMS HealthcareGlucose, UANegativeNegative - 2000(110) ++++ mg/dLPARK CITY [facility]OS[facility] HealthcareInterpretation and review of laboratory resultsNormalC[facility] Regional Medical Center Ketones, UANegativeNegative - 160(16) ++++ mg/dLPARK CITY HOSP[facility] HealthcareLeukocytes, UA NegativeNegative - 500+++ Ayana/mcLNOAZ HealthcareNitrite, UANegativeNegative - PositiveNOAZ HealthcarepH, UA65 - 9NOAZ HealthcareProtein, UANegativeNegative - 2000(20) ++++ mg/dLNOAZ HealthcareSpec Grav, UA1.0151 - 1.03NOAZ Healthcare Urobilinogen, UA0.20.2 - 12 mg/dLExcelsior Springs Medical Center HealthcareGLUCOSE 1 HOURon 85-35-8791Ujnuoxe [Mass/Vol]108 mg/dLNINF - 130 mg/dLPARK CITY [facility]OS[facility] HealthcareCLINISYNC [facility] CenterALL MISCELLANEOUS TESTon 64-08-7509OBILTKTSMAHJS TESTCOMMENT.[facility] HealthcareComment on above:Test Ordered: [id number] Parvovirus B19, Human, IgG/IgM Parvovirus B19, IgG 0.1 index BN Reference Range: 0.0-0.8 Negative <0.9 Equivocal 0.9 - 1.1 Positive >1.1 Parvovirus B19, IgM 0.1 index Reference Range: 0.0-0.8 Negative <0.9 Equivocal 0.9 - 1.1 Positive >1.1 Performed at: [address] [id number] Development Intern: Darion Moon MD, Phone: [phone] Performed at: [address] [id number] Development Intern: Madi Maloney PhD, Phone: [phone] Parvovirus B19 (Human), IgG, IgM CLINISYNCNOMS HealthcareALL MISCELLANEOUS TESTon 76-15-7204BQEBMSNRINLOU TEST COMMENT.NOMS HealthcareComment on above:Test Ordered: [id number] Parvovirus B19, Human, IgG/IgM Parvovirus B19, IgG 0.1 index Reference Range: 0.0-0.8 Negative <0.9 Equivocal 0.9 - 1.1 Positive >1.1 Parvovirus B19, IgM 0.1 index Reference Range: 0.0-0.8 Negative <0.9 Equivocal 0.9 - 1.1 Positive >1.1 Performed at: [address] [id number] Development Intern: Darion Moon MD, Phone: [phone] Performed at: [address] [id number] Development Intern: Madi Maloney PhD, Phone: [phone] Parvovirus B19 (Human), IgG, IgM CLINISYNCNOMS HealthcareALL CBC WITH AUTO DIFFon 29-04-7806PWKURPFBP ABSOLUTE UWZD6GXIM HealthcareBasophils/100 WBC (Bld)0.5 %0.2 - 2.0 %[facility] Eosinophils/100 WBC (Bld)0.5 %Low0.9 - 7.0 %NOMS HealthcareErythrocyte distribution width (RBC) [Ratio]12.3 %11.0 - 15.0 %NOMS HealthcareHematocrit (Bld) [Volume fraction]38.5 %36.0 - 48.0 %NOMS HealthcareIMMATURE GRANULOCYTES ABS AUTO0.02NOAZ HealthcareImmature granulocytes/100 WBC (Bld)0.3 %0.0 - 0.5 % [facility] CenterInterpretation and review of laboratory resultsAbnormalNOAZ HealthcareLYMPHOCYTES ABSOLUTE AUTO1.6NOMS HealthcareLymphocytes/100 WBC (Bld)21 %20.5 - 60.0 %[facility] HospitalH (RBC) [Entitic mass]33.5 pg26.7 - 34.0 pgNorth Kansas City HospitalHC (RBC) [Mass/Vol]35.6 g/dOOgyc52.9 - 35.2 g/dLNorth Kansas City HospitalV (RBC) [Entitic vol]94.1 fL81.0 - 99.0 fLCameron Regional Medical CenterMONOCYTES ABSOLUTE AUTO 0.4NOMS HealthcareMonocytes/100 WBC (Bld)5.1 %1.7 - 12.0 %[facility] NEUTROPHILS ABSOLUTE AUTO5.6NOBarnes-Jewish West County HospitalNeutrophils/100 WBC (Bld)72.6 %43.0 - 75.0 %[facility] Medical CenterPlatelet mean volume (Bld) [Entitic vol]11.1 fL9.5 - 13.5 fLCameron Regional Medical CenterTBH EO #0NOBarnes-Jewish West County HospitalTBH DUK374FMMSUniversity Hospital RBC4.09Low [facility] WBC7.8C[facility] Medical CenterCLINISYNCCBC and differentialon 43-86-8170Sngbphpuqw (Bld) [Volume fraction]39 %36 - 46 %[facility] Platelets (Bld) [#/Vol]211 10*3/uL150 - 399 10*3/uLProMedica Health SystemWBC (Bld) [#/Vol]7.8 10*3/mL3.3 - 10.0 10*3/mLUniversity Of Vermont Medical CenterMedica Holzer Hospital SystemDrug Screen, Urineon 24-53-2329Awxztlllyir/MethamphetamineNegativeProMedica Health System BarbituratesNegativeProMedica Health SystemBenzodiazepinesNegativeProMedica Health SystemCocaine MetaboliteNegativeUniversity Of Vermont Medical CenterMedica Health SystemMethadoneNegative ProMedica Health SystemOpiatesNegativeUniversity Of Vermont Medical CenterMedica Health SystemOxycodoneNegative ProMedica Health SystemPhencyclidineNegativeProMedica Health SystemThc Marijuana, UrineNegativeCrystal Clinic Orthopedic CenterHBV surface Ag IA Qlon 08-21-2024 Hepatitis B Surface AntigenNegativeCrystal Clinic Orthopedic CenterHCV Ab IA Qlon 24-56-8826LVS Ab Ql (S)Non-ReactiveCrystal Clinic Orthopedic CenterHIV 1+2 Ab+HIV1 p24 Ag IA Qlon 69-22-3935UJK 1&2 AB/AGNon-ReactiveCrystal Clinic Orthopedic CenterHemoglobin A1con 69-96-5766UhP6f (Bld) [Mass fraction]5.6 %4.0 - 6.0 %[facility] CenterLaboratory - Hematology and Cell countson 32-94-8645Jtxzumiivs (Bld) [Mass/Vol]13.7 g/dL12.0 - 16.0 g/dLCameron Regional Medical CenterNo Panel Informationon 86-62-0849EZUJ HealthcareRubella IGG immune statuson 92-65-9367Ejapmro immune IgGimmuneCrystal Clinic Orthopedic CenterT. pallidum IgG+IgM IA Ql (S)Ordered By: Nadira Salazar on 39-01-9641QdvfziqxRyf-ReactiveCrystal Clinic Orthopedic CenterTSHon 86-62-8594Hwvqfpe Stimulating (3Rd Generation) Hormone/ Tsh7.721PSt. Anthony's HospitalType and screenon 09-78-4639Owv/Rh(D)PositiveCrystal Clinic Orthopedic CenterHCG ( test) Ql (U)on 28-42-5684Rwxnxyvzzsrdof and review of laboratory resultsAbnormalCameron Regional Medical CenterPreg Test, UrPositiveNegativeExcelsior Springs Medical Center HealthcareUS OB TRANSVAGINALon 50-56-1579AL OB TRANSVAGINALEXAM: US OB TRANSVAGINAL HISTORY: Dating. [...] 20-Aug-2024 10:22:40 AM [facility]-[place] TeleradiologyNormalNot AvailableComment on above:Order Comment: US OB TRANSVAGINAL No LMP recorded.Urinalysis macro (dipstick) panel (U)on 56-94-4352Dzfgxdcaq, UA NegativeNegative - 4(70) +++ mg/dLNOMS HealthcareBlood, [...] - 12 mg/dLNOMS HealthcareNOMS HealthcareAmbulatory Visit Summaryon 88-40-8759Dladbudzur Visit SummaryAmbulatory Visit Summary YANA CHURCH :2000 [...] 8:40 AM EDT With: Marta Rivas Where: [facility] [address] [place] [address], [address] [place] [id number] Medications What How Much When Why Instructions [...] you for choosing us for your care. [facility] Medicine Office/Clinic Noteon 43-64-5177Lkrmkt Medicine Office/Clinic NoteFacape cod hospital Medicine Office/Clinic Note Chief Complaint Establish [...] anymore, managed with tylenol Social History: Occupation: [employer] Family life: home with and daughter Diet: no restrictions Caffeine: 1 cup coffee/day Exercise: active lifestyle Alcohol use: denies Drug use: denies Smoking status: denies Health Maintenance: Routine labs: thyroid labs 06/2024, declines further labs Pap (21-64yo): 04/2023 Specialists: Bacteriology Technician: krysta Dentist: krysta OBGYN: Joanna Review of [...] Recheck TSH/T (more content not included)...[facility] Comment on above:Result Comment: Electronically Signed By: Marta Rivas\.br\Date and Time Signed: 07/09/24 08:35 EDTAmbulatory Visit Summaryon 43-65-7131Bcxoukqqjf Visit SummaryAmbulatory Visit Summary YANA CHURCH :2000 [...] 8:00 AM EDT With: Marta Rivas Where: [facility] [address] [facility], [facility] [place] [address]- Medications What How Much When Why Instructions New amoxicillin-clavulanate (Augmentin 875 mg-125 mg Tab) 1 Tablets By Mouth Every 12 hours Acute sinusitis Duration: 10 Days Pickup at [facility] Unchanged levothyroxine (Synthroid 100 mcg Tab) 1 Tablets By Mouth Every day Pharmacy Information [facility]: [address] [place], [place] [phone] Allergies No Known Allergies Problems Ongoing - [...] you for choosing us for your care. [facility] Medicine Office/Clinic Noteon 16-20-8339Iprxug Medicine Office/Clinic NoteFacape cod hospital Medicine Office/Clinic Note Chief Complaint possible [...] for 10 day(s), 20 tab(s), Refill(s) 0, [address], 166, cm, 07/05/24 15:34:00 EDT, Height/Length [...] When Contact Information Julienne BARTLETT, Ham Montano, [facility], [address], [address] [phone] Additional Instructions: as scheduled with Marta Patient Education Sinus Infection, Adult, Qjwj-hp-Qpxe How to Perform a Sinus Rinse, Bbtd-lz-Qpse Problem List/Past Medical History Ongoing Acute sinusitis [...] poliovirus vaccine, inactivated (more content not included)...Normal [facility] HospitalComment on above:Result Comment: Electronically Signed By: Julienne BARTLETT, Ham Montano\.br\Date and Time Signed: 07/05/24 16:06 EDT CHEMISTRYOrdered By: SYSTEM SYSTEM on 01-09-5776Fdes T4 [Mass/Vol]0.82 ng/dL Normal0.58 - 1.64 ng/dLRemisol ChemTSH Qn3.09 m[IU]/LNormal0.34 - 5.60 mcIU/mL Remisol ChemFree T4on 31-10-7789Yxmk T4 [Mass/Vol]0.82 ng/dLNormal0.58-1.64 [facility] HospitalComment on above:Performed By: #### [id number] #### [facility] [address] [place], [place] [address]OZFhb 13-10-7158KJB Qn3.09 m[IU]/LNormal0.34-5.60The [facility] HospitalComment on above:Performed By: #### [id number] #### [facility] [address] [place], [place] [address]TZW EXTRACTION AND HOLDon 12-82-2363YbqgsdLhfudl Puregene Reagents from QiagenInvalid Interpretation [facility] on above:Order Comment: Release to patient->AutomaticNucleic Acid Concentration 273.2 ng/uLInvalid Interpretation [facility] on above: Order Comment: Release to patient->AutomaticNucleic Acid Purity1.90Invalid Interpretation Code1.70-2.10[facility] [facility] on above:Order Comment: Release to patient->AutomaticSignature .Invalid Interpretation [facility] on above:Order Comment: Release to patient->AutomaticStorage and Special InstructionsInvalid Interpretation [facility] on above:Order Comment: Release to patient->AutomaticResult Comment: The extracted DNA is stored in the [facility] at -70 degrees C and is being held for future testing. If there are any questions regarding this sample, please contact the [facility] at [phone].Total DNA Yield82.0 ugInvalid Interpretation [facility] on above:Order Comment: Release to patient->AutomaticTotal Volume HFI077 ulInvalid Interpretation Code [facility] on above:Order Comment: Release to patient->AutomaticIGP,APTIMA HPV,AGE GDLNon 33-12-0919XTF GDLN ACOG TESTINGNote. NOMS HealthcareComment on above:TESTS RESULT FLAG UNITS REF RANGE LAB Clinician Provided Cytology Information Source.............Cervix;Endocervix No. of containers..01 ThinPrep Vial Age Maicolo ACOG Francheska... FLAG LEGEND: L-Low Normal,H-High Normal,LL-Alert Low,HH-Alert High <-Panic Low,>-Panic High,A-Abnormal,AA-Critical Abnormal Performed at: 01 = Lab[address] [place] [address] Sugey Torres MD, IGP, RFX APTIMA HPV ASCUNote.[facility] HealthcareComment on above:TESTS RESULT FLAG UNITS REF RANGE LAB DIAGNOSIS: 02 NEGATIVE FOR INTRAEPITHELIAL LESION OR MALIGNANCY. Specimen adequacy: 02 Satisfactory for evaluation. Endocervical and/or squamous metaplastic cells (endocervical component) are present. Performed by: 02 Yudy Rhoades, Ob/Gyn Doctor ([facility]) . 02 Note: [...] <-Panic Low,>-Panic High,A-Abnormal,AA-Critical Abnormal Performed at: [address] [address] Sugey Torres MD, Performed at: = - [facility] [address] [id number] Development Intern: Sugey Torres MD, Phone: [phone] Performed at: - [address] [id number] Development Intern: Sugey Torres MD, Phone: [phone] BRUSH-SPATULA CERVIX ENDOCERVIX CLINISYNCNOMS HealthcareCoding Summary.on 43-96-4465Ndafgm Summary. NBGRHcvw42TTb2dYi+PGhlYWQ+QB4BIMUnN93wtAXxtE1pI5AOGGbNBqarAZUVYTjVCnHszdVeXA1lrX NjZXJu [file] I80ntCLgo2B1V (more content not included)...NormalThe [facility] CHEMISTRYOrdered By: SYSTEM SYSTEM on 55-34-5402Ofnp T4 [Mass/Vol]0.92 ng/dL Normal0.58 - 1.64 ng/dLRemisol [facility] Qn3.37 m[IU]/LNormal0.34 - 5.60 mcIU/mL Remisol ChemConsent for Treatmenton 77-14-1486Kcxahax for Treatment [id number]#1.00TIFFNormalThe Bellevue HospitalFree T4on 51-50-6106Vidw T4 [Mass/Vol]0.92 ng/dLNormal0.58-1.64The [facility] HospitalComment on above:Performed By: #### [id number] #### Barry [facility] [address] [place] [address]UTKsg 68-16-7172TDD Qn3.37 m[IU]/LNormal0.34-5.60The [facility] HospitalComment on above:Performed By: #### [id number] #### Jhonny [facility] [address] [place], [place] [address]Nwuhttnufn Visit Summaryon 20-80-6864Aidddpkcri Visit Summary YANA CHURCH :2000 Visit Date:08/08/2023 [...] you for choosing us for your care. [facility] Medicine Office/Clinic Noteon 02-15-2845Vnrnwk Medicine Office/Clinic NoteChief Complaint f/u for hypothyroid [...] hemorrhoids) Resolved, no additional complaints. saw [facility] for screening colonoscopy/diagnostic colonoscopy due to constipation [...] with voice recognition artificial intelligence software, specifically [employer], [employer] and or [employer]. Substitutions may have occurred due to the [...] Alcohol Curren (more content not included)...[facility] Behavioral Medical CenterComment on above:Result Comment: Electronically Signed By: Ya [...] Follow these instructions at home: ? Take ibmd-nmh-fvrfzkx and prescription medicines only as told by [...] provider. Document Revised: 03/09/2022 Document Reviewed: 03/09/2022 AMEE Patient Education ? 2022 [employer] [place]. Gastroenterology Hemorrhoids Hemorrhoids are swollen veins in and around the rectum or anus. There are two types of hemorrhoids: ? Internal hemorrhoids. These occur in the veins that are just inside the rectum. They may poke through to the outside and become irritated and painful. ? External hemorrhoids. These occur in the veins that are (more content not included)...NormalThe Bellevue HospitalPAP [id number] 05-20-2023. trachomatis rRNA FRANSISCO+probe Ql (Cvx)NegativeInvalid Interpretation CodeNegative The [facility] HospitalComment on above:Performed By: #### [id number] ####[facility] Tgxsgadpdw997 [facility] Campusradhast. joseph's hospital health centeramerico [id number] Cytology report Cyto stain Doc (Cvx/Vag)NoteInvalid Interpretation [facility] HospitalComment on above:Result Comment: TESTS RESULT FLAG UNITS REF RANGE LAB Clinician Provided Cytology Information Source.............Cervix No. of containers..01 ThinPrep Vial DIAGNOSIS: 01 NEGATIVE FOR INTRAEPITHELIAL LESION OR MALIGNANCY. Specimen adequacy: 01 Satisfactory for evaluation. Endocervical and/or squamous metaplastic cells (endocervical component) are present. Performed by: 01 Erum Mckenzie, Ob/Gyn Doctor ([facility]) . 01 Note: [...] <-Panic Low,>-Panic High,A-Abnormal,AA-Critical Abnormal Performed at: [address] [address] Sugey Torres MD, Pkrkoybbo By: #### [id number] ###Tunde [facility] [address]psqcjuxuz[address], [id number] 16+18+31+33+35+39+45+51+52+56+58+59+66+68 DNA Probe+sig amp Ql (Cvx)Negative Invalid Interpretation CodeNegativeFisher [facility] Medical CenterComment on above: Result Comment: This nucleic acid amplification test detects fourteen high-risk HPV types (16,18,31,33,35,39,45,51,52,56,58,59,66,68) without differentiation.Performed By: #### [id number] ####Barry [facility] Hazfzvlohn855 [facility], [id number]. gonorrhoeae rRNA FRANSISCO+probe Ql (Cvx) NegativeInvalid Interpretation CodeNegMarymount HospitalComment on above:Performed By: #### [id number] ####Barry [facility] Jkusmtajba887 [facility] [id number]. vaginalis rRNA FRANSISCO+probe Ql (Unsp spec)NegativeInvalid Interpretation CodeNegativeThe [facility] Comment on above:Result Comment: Performed at: [facility] [address], [place] [id number] MD Brian Mayes Performed at: =G [facility] [place] [address], [place] [id number] MD Brian MayesPerformed By: #### [id number] ####[facility] [address] [place] [address] [id number] Medicine Office/Clinic Noteon 92-54-5530Iuqssd Medicine Office/Clinic NoteChief Complaint Pap, f/u UTI [...] up every 3-5 years based on results TRASHMAN referral if needed for further testing or [...] placed F/u 6 months (more content not included)...NormalThe [facility] Comment on above:Result Comment: Electronically Signed By: Ya Wang\.irvin\Date and Time Signed: 05/16/23 15:38 ESTPAP [id number] 05-16-2023 Gynecological Body SiteCERVIXNormalThe Bellevue HospitalComment on above: Performed By: #### [id number] ####Jhonny [facility] Aw[address]ym[address]ui[address] [id number] Educationon 16-25-5061Wptsmip Education Obstetrics and Gynecology Pap Test Why [...] including vitamins, herbs, eye drops, creams, and tece-lam-dxfmyet medicines. ? Any bleeding problems you have. [...] provider. Document Revised: 06/05/2021 Document Reviewed: 06/05/2021 AMEE Patient Education ? 2022 [employer] [place]. Oncology Cancer Screening for Women A cancer [...] to asbestos. How i (more content not included)...NormalThe Bellevue HospitalConsent for Treatmenton 53-41-1917Wwxhfcu for Treatment [id number]#1.00TIFFNormalThe Bellevue HospitalUA With Cult Reflexon 18-06-7732Kmjdarmmd Ql (U)NegativeNormalNegative [facility] HospitalComment on above:Performed By: #### [id number] ####[facility] [address] [place] [address] Clarity (U)CLEARNormalClearThe Bellevue HospitalComment on above:Performed By: #### [id number] ####[place] [address] [place], [place] [address]Gacst (U)YELLOWNormalYellowThe [facility]vue Hospital Comment on above:Performed By: #### [id number] ####[facility] [address] [place], [place] [address]Dprcfcekfi cells.squamous LM.HPF (Urine sed) [#/Area]9-2Iouqlq1-3Lencva [facility] CenterComment on above: Performed By: #### [id number] ####[facility] Ecytdh[address]uc[address] [place], [place] [address]Moadzfq Test strip (U) [Mass/Vol]NegativeNormal NegativeThe Bellevue HospitalComment on above:Performed By: #### [id number] ####[facility] [address]okxj[address] [place] [address] Hemoglobin Ql (U)NegativeNormalNegativeThe Bellevue HospitalComment on above:Performed By: #### [id number] ####[facility] [address] [place], [place] [address]Faeadwo (U) [Mass/Vol]NegativeNormalNegMarymount HospitalComment on above:Performed By: #### [id number] ####[address] [address] Colcord.plasma/[place]cord.RBC (Bld) [Mass ratio]1-8Hfnbrp0-5Viqjea [facility] CenterComment on above:Performed By: #### [id number] ####[address] [address]Xpqzkjy Ql (U)NegativeNormal NegativeThe Bellevue HospitalComment on above:Performed By: #### [id number] ####[address] [address]pD (U)6.0 [pH]Invalid Interpretation Code5.0-9.0The [facility]vue HospitalComment on above:Performed By: #### [id number] ####[address] [address]Vguxqtc (U) [Mass/Vol]NegativeNormal NegativeThe Bellevue HospitalComment on above:Performed By: #### [id number] ####[address] [address] Specific gravity (U) [Rel density]>=1.030Invalid Interpretation Code1.005-1.030 The [facility]vue HospitalComment on above:Performed By: #### [id number] ####[address] [address]Injk of Urine collection methodClean CatchNormalThe Bellevue HospitalComment on above:Performed By: #### [id number] ####[address] [address]Iuuogvkaiczw Qn (U)0.2 {Mehdi'U}/dLNormal0.0-1.0 The [facility] HospitalComment on above:Performed By: #### [id number] ####[address] [address] Auto Ql (U)NegativeNormalNegativeThe Bellevue HospitalComment on above: Performed By: #### [id number] ####[address], [place] [address]CXL LM.HPF (Urine sed) [#/Area]6-0Znrqou6-1Mvyzyc [facility] CenterComment on above:Performed By: #### [id number] ####Jhonny [facility] Tnfmdcxyuv[address] [place], [place] [address]WFVXVSTIVG Ordered By: Alphonso Wang on 52-15-4830Ojgiicgly Ql (U)Negative (03/24/23 11:15 AM)NormalNegativeBEAVER [facility] UA Auto SSClarity (U)Clear (03/24/23 11:15 AM)NormalClearFNORMAN REG[facility] UA Auto SSColor (U)Yellow (03/24/23 11:15 AM)NormalYellowBEAVER COUNTY MEMORIAL [facility]OS[facility] UA Auto SSEpithelial cells.squamous LM.HPF (Urine sed) [#/Area]0-2 /HPFNormal0-2/HPFBEAVER COUNTY MEMORIAL [facility] UA Auto SSGlucose Test strip (U) [Mass/Vol]Negative (03/24/23 11:15 AM)NormalNegativeBEAVER COUNTY [facility] UA Auto SSHemoglobin Ql (U)Negative (03/24/23 11:15 AM)NormalNegativeBEAVER COUNTY [facility] UA Auto SSKetones (U) [Mass/Vol]Negative (03/24/23 11:15 AM)NormalNegativeBEAVER COUNTY [facility]IAL [facility] UA Auto SSLithium.plasma/[place]cord.RBC (Bld) [Mass ratio]0-3 /HPFNormal0-3/HPFBEAVER COUNTY MEMORIAL [facility]OS[facility] UA Auto SSNitrite Ql (U)Negative (03/24/23 11:15 AM)NormalNegativeBEAVER COUNTY [facility] UA Auto SSpH (U)6.0 *NA* (03/24/23 11:15 AM)Invalid Interpretation Code5.0 - 9.0[facility] UA Auto SSProtein (U) [Mass/Vol]Negative (03/24/23 11:15 AM)NormalNegativeBEAVER COUNTY [facility] UA Auto SSSpecific gravity (U) [Rel density] >=1.030 *NA* (03/24/23 11:15 AM)Invalid Interpretation Code1.005 - 1.030[facility] UA Auto SSUA Spec DescClean Catch (03/24/23 11:15 AM)NormalBEAVER COUNTY MEMORIAL [facility]OSP[facility] UA Auto SSUrobilinogen Qn (U)0.7201346 {Mehdi'U}/dLNormal0.0 - 1.0 EU/dLBEAVER COUNTY MEMORIAL [facility]OS[facility] UA Auto SSWBC Auto Ql (U)Negative (03/24/23 11:15 AM)NormalNegativeBEAVER COUNTY [facility] UA Auto SSWBC LM.HPF (Urine sed) [#/Area]0-5 /HPFNormal0-5/HPFBEAVER COUNTY MEMORIAL [facility]OS[facility] UA Auto SST3 Freeon 50-88-1450Codv T3 [Mass/Vol]2.9 pg/mL Invalid Interpretation Code2.0-4.4Fisher [facility] Medical CenterComment on above: Result Comment: Performed at: [facility] [address] [id number] PhD Haider BarrazaPerformed By: #### [id number] ####Barry [facility] [address] [place], [place] [address]SU Retroperitoneal Completeon 74-71-0652AZ Retroperitoneal CompleteExam Date/Time: 03/22/2023 09:49 EST Reason [...] Medical CenterCHEMISTRY Ordered By: SYSTEM SYSTEM on 83-89-5808Vhtd T4 [Mass/Vol]1.10 ng/dLNormal0.58 - 1.64 ng/dLRemisol ChemTSH Qn0.90 m[IU]/LNormal0.34 - 5.60 mcIU/mLRemisol Chem Consent for Treatmenton 59-66-1203Wodlwuu for Treatment [id number]#1.00TIFFKettering Health Behavioral Medical CenterFree T4on 90-12-5109Ovmm T4 [Mass/Vol]1.10 ng/dLNormal0.58-1.64The Bellevue HospitalComment on above:Performed By: #### [id number], 0589198, 4679336 ####[facility] [address] [place], [place] [address]TNVll 46-82-2744JDY Qn0.90 m[IU]/LNormal0.34-5.60The [facility]vue HospitalComment on above:Performed By: #### [id number], 4693523, 2812899 ####[facility] [address] [place] [address] 25771V Urineon 32-35-3508Pcjqzwea identified Cx Nom (U)Microbiology PROCEDURE: Urine Culture [...] Locations R1: This test was performed at: [facility], [address] [place] [address], [id number] [place] [address], QsbluzPdhrroKettering Health Behavioral Medical CenterComment on above:Performed By: #### [id number] ####[facility] Zqrnozzluv[address] Bl[address] Ashtonst. joseph[facility] hospital health centeramericoSIL[place], [place] [address]Peijah Medicine Office/Clinic Noteon 92-75-4060Xtrouk Medicine Office/Clinic NoteChief Complaint 2 wk f/u [...] due to her gallbladder. She saw a dial printer in 11/2022. She is able to schedule [...] shows: Negat (more content not included)...[facility] Behavior[facility] Medical CenterComment on above:Result Comment: Electronically Signed By: Ya Wang\.br\Date and Time Signed: 03/11/23 06:06 EST\.br\Electronically Co-Signed By: Annetta Blackburn\.br\Date and Time Co-Signed: 03/09/23 12:22 ESTAmbulatory Visit Summaryon 70-89-4520Jacfyjbdor Visit Summary YANA CHURCH :2000 Visit Date:03/09/2023 Ambulatory Visit Instructions Your Diagnosis BMI 21.0-21.9, adult Feeling of incomplete bladder emptying Other cystitis with hematuria Hypothyroidism Tests Performed Urnls Dip Stick Auto w/o Microscopy POC 53108 Your Care Team Attending Physician - Ya [...] 10:00 AM EDT With: Ya Wang Where: [facility] Primary CareNormalRecurrent UTI (urinary tract infection), pp_set_radiology_subspecialty, [facility]\.br\ Medicati ons\.br\ What How Much When Why Instructions\.br\ New cephalexin (Keflex 500 mg Cap) 1 Capsules By Mouth 4 times a day Feeling of incomplete bladder emptying Recurrent UTI (urinary tract infection) Duration: 7 Days Pickup at [facility]\.br\ New phenazopyridine (Pyridium 200 mg Tab) 1 Tablets By Mouth 3 times a day Feeling of incomplete bladder emptying Recurrent UTI (urinary tract infection) Duration: 3 Days Pickup at [facility]\.br\ Unchanged levothyroxine (Synthroid 112 mcg Tab) [...] instructions Prior to colonoscopy. \.br\ Pharmacy Information\.br\ [facility]: [address] [place], [place] [address] [phone]\.br\ Test Results\.br\ Urnls Dip Stick Auto w/o Microscopy POC 75157 (03/09/2023)\.br\ Bilirubin Urine Dipstick - Negative\.br\ Blood Urine Dipstick - Trace-intact\.br\ Glucose Urine Dipstick - Negative\.br\ Ketones UrineDipstick - Negative\.br\ Leukocytes Urine Dipstick - Trace\.br\ Nitrite Urine Dipstick - Negative\.br\ Protein Urine Dipstick - Negative\.br\ Specific [place] Urine Dipstick - 1.020\.br\ Urine Appearance Urine [...] including vitamins, herbs, eye drops, creams, and jprd-evu-qufzpwm medicines.\.br\ ? \.br\ Whether you are or [...] communicating with your muscles.\.br\ What The [facility] HospitalPatient Educationon 18-50-6897Bhaioqq Education Endocrinology Hypothyroidism Hypothyroidism is when the [...] Follow these instructions at home: ? Take hyfa-ysz-nayjust and prescription medicines only as told by [...] provider. Document Revised: 03/09/2022 Document Reviewed: 03/09/2022 AMEE Patient Education ? 2022 [employer]. Obstetrics and Gynecology Urinary Tract Infection, Adult A urinary tract infection (UTI) is an infection of any part of the urinary tract. The urinary tractincludes the kidneys, ureters, bladder, and urethra. These organs make, store, and get rid of urinein the body. An upper UTI affects the ureters and kidneys. A lower UTI affects the bl (more content not included)...[facility] Medical CenterPhysician Referralon 46-81-6433Ybslxhncm [id number]#1.00TIFF [facility] Medical CenterProvider Letteron [id number] Letter March 02, [address] [place] [id number] : [address] Clay Waters is know on your insurance & we are able to schedule your EGD & Colonoscopy. Please call us at [phone] at [facility] convenience to schedule your procedure. Thank you for your prompt attention to this matter. Sincerely, [facility] Digestive [facility] CenterRemsan [facility] 03-02-2023 Reminders From: Erum Gold To: [facility] - Reminders/Recalls; Sent: 11/30/2022 12:34:03 EDT Show up: 11/30/2022 12:34:00 EDT Subject: Ambulatory Reminder [employer] Reminder/Recall Call pt and scheduled EGD and Colonoscopy with Dr. Williamson once [employer] is approved. From: Rusty Alfred ([facility] - Reminders/Recalls) To: Yue Perez; Sent: 12/28/2022 [...] letter to patient to call office to [facility] Urineon 21-15-5516Mqkkykyh identified Cx Nom (U)Microbiology PROCEDURE: Urine Culture [...] Locations R1: This test was performed at: [facility], [address] [place] [address], [facility] , , WfvgbjOvjujoKettering Health Behavioral Medical CenterComment on above:Performed By: #### [id number] ####[facility] [address] [place] [address] Medicine Office/Clinic Noteon 44-57-7086Oclagk Medicine Office/Clinic NoteChief Complaint UTI symptoms HPI [...] color was orange in appearance due to ughj-ewy-gsbaddv meds she was taking, normal urobilinogenpH 5.5 [...] day(s), # 10 cap(s), Refills(s) 0, Pharmacy: [facility], 166, cm, 02/21/23 13:06:00 EST, Height/Length Dosing, 58.6, kg, 02/21/23 13:06:00 EST, Weight Dosing phenazopyridine, 200 mg = 1 tab(s), Oral, TID, X 3 day(s), # 9 tab(s), Refills(s) 0, Pharmacy: [facility], 166, cm, 02/21/23 13:06:00 EST, Height/Length Dosing, 58.6, kg, 02/21/23 13:06:00 EST, Weight Dosing Urine Culture Urnls Dip Stick Auto w/o Microscopy POC 55136 2. Acute cystitis (N30.00: Acute cystitis without hematuria) #1 3. Constipation in female (K59.00: Constipation, unspecified) improving. occasional Colace OTC and Miralax 4. Hemorrhoids (K64.9: Unspecified hemorrhoids) improving, stable 5. Hypothyroidism (E03.9: Hypothyroidism, unspecified) Chronic Stable with 112 mcg daily of Synthroid _ control Weight is stable Asymptomatic- noteable tachycardia today Du (more content not included)...[facility] Medical CenterComment on above:Result Comment: Electronically Signed By: Ya [...] these instructions at home: Medicines ? Take ryrs-zwm-nwhnnhj and prescription medicines only as told by [...] provider. Document Revised: 10/17/2020 Document Reviewed: 10/17/2020 AMEE Patient Education ? 2022 [employer] [place].[facility] Ambulatory Visit Summaryon 69-70-3644Vpjlhygtqk Visit Summary LILIANAYANA MONTENEGRO :2000 Visit Date:11/30/2022 [...] 1:00 PM EST With: Ya Wang Where: [facility] Primary CareK[facility] Gastroenterology Office/Clinic Noteon 75-61-6815Lansrkwyazugfklk Office/Clinic NoteChief Complaint constipation HPI Staff Patient [...] Refill(s) 0, Prior to colonoscopy., [id number], 166, cm, 11/30/22 12:12:00 EDT, Height/Length Dosing, [...] Hypothyroidism Left (more content not included)...[facility] Medical CenterComment on above:Result Comment: Electronically Signed By: Daniel Gray CNP\.br\Date and Time Signed: 11/30/22 12:32 EDTPatient Educationon 28-81-9550Mttqurr EducationGastroenterology High-Fiber Eating Plan Fiber, also called [...] Bulgur wheat. Millet. Quinoa. Bran muffins. Popcorn. [place] wafer crackers. Meats and other proteins Maxton beans, kidney beans, and díaz beans. Soybeans. [...] Cream cheese. Sour cream. Fats and oils [place]. Beverages Soft drinks. Other foods Cakes and [...] Document Revised: (more content not included)...[facility] Medical CenterPre-Certification Formon 09-81-4331Ror-Certification Form [id number]#1.00CD:127NormalThe Bellevue HospitalFacape cod hospital Medicine Office/Clinic Noteon 68-88-4644Nluoal Medicine Office/Clinic NoteChief Complaint pt here for [...] visit we encourage proper diet and exercise ifwe-den-ytrrhhr MiraLAX or Colace with Preparation H bvrp-blj-vlchqts, bleeding has stopped, blood noted on toilet [...] Rectal exam was performed, I did offer production coordinator but patient declined, external anus is normal [...] length of time on toilet, sitz bath's, hdom-oiv-ewveype medications and suppositories and creams Hydrocortisone lidocaine with applicator gel ordered today to use twice daily Referral for GI referral placed today Ordered: hydrocortisone-lidocaine topical, 1 carmen, Rectal, BID, 60 EA, Refill(s) 1, [facility], 166, cm, 11/11/22 9:28:00 EDT, Height/Length Dosing, 59.4, kg, 11/11/22 9:28:00 EDT, Weight Dosing [facility] Internal Ambulatory Referral 2. Hypothyroidism (E03.9: Hypothyroidism, [...] azelastine ophthalmic, (more content not included)...[facility] Medical CenterComment on above:Result Comment: Electronically Signed By: Ya Wang\.br\Date and Time Signed: 11/11/22 09:53 EDTPatient Educationon 02-87-8130Xerodmg EducationHigh-Fiber Diet Fiber, also called dietary fiber, [...] serving. ? Talk with a diet and reliability specialist (dietitian) if you have questions about [...] Bulgur wheat. Millet. Quinoa. Bran muffins. Popcorn. [place] wafer crackers. Meats and other proteins [place], kidney, and díaz beans. Soybeans. Split peas. [...] Cream cheese. Sour cream. Fats and oils [place]. Beverages Soft drinks. Other foods Cakes and [...] 03/07/2006 Document Revised: 01/09/2018 Document Reviewed: 01/09/2018 AMEE Patient Education ? 2019 [employer] [place]. Gastroenterology H (more content not included)...[facility] Medical CenterAmbulatory Visit Summaryon 55-79-8139Xszmgjgwip Visit Summary YANA CHURCH :2000 Visit Date:10/08/2022 [...] f/u for hypothyroid, weight loss Where: [address] [facility], [facility] [address] [address]- Business (1) You Need to Complete the Following Anti-thyroid Abys, Blood, Routine collect, 10/08/22, Order for future visit, Lab Collect, Weight lossInvalid Interpretation CodeHypothyroidismThe Bellevue HospitalAuto Diffon 07-34-5282Ihjsvxjpb/100 WBC (Bld)1.1 %Normal0.0-2.0 The Bellevue HospitalComment on above:Order Comment: Order Added by Discern Expert.Performed By: #### [id number], 50789395, 50862257, 8706260, 1278008 ####[facility] [address] [place] [address] Basophils/Leukocytes Auto (Bld) [Pure # fraction]0.1 E9/LNormal0.0-0.2FTriHealth Good Samaritan HospitalComment on above:Order Comment: Order Added by Discern Expert.Performed By: #### [id number], 11818076, 75013544, 9283842, 6009707 ####[facility] [address] [place] [address] Eosinophils/100 WBC (Bld)1.2 %Normal0.0-8.0The [facility]vue HospitalComment on above:Order Comment: Order Added by Discern Expert.Performed By: #### 7041422, 97975961, 70315344, 2894388, 4990872 ####[facility] [address] [place] [address]Pawpsbouyeb/Leukocytes Auto (Bld) [Pure # fraction]0.1 E9/LNormal0.0-0.5FTriHealth Good Samaritan HospitalComment on above: Order Comment: Order Added by Discern Expert.Performed By: #### 0610936, 56025027, 06203644, 8107279, 9324122 ####[facility] [address] [place] [address]Stmrhdbkfum/100 WBC (Bld)41.0 %Normal 14.0-50.0The [facility]vue HospitalComment on above:Order Comment: Order Added by Discern Expert.Performed By: #### 4153819, 80606180, 82864084, 5916753, 4714429 ####[address] [address]Kqbunntspxj/Leukocytes Auto (Bld) [Pure # fraction]2.3 E9/LNormal1.0-4.0 The [facility] HospitalComment on above:Order Comment: Order Added by Discern Expert.Performed By: #### 2480365, 67371524, 48198239, 5752283, 0181917 ####[address] [address] Monocytes/100 WBC (Bld)5.8 %Normal4.0-14.0The Bellevue HospitalComment on above:Order Comment: Order Added by Discern Expert.Performed By: #### 8315946, 23035397, 02628152, 0222614, 5638993 ####[facility] [address] [place] [address]Tdfcsivsd/Leukocytes Auto (Bld) [Pure # fraction]0.3 E9/LNormal0.2-1.0The [facility] HospitalComment on above:Order Comment: Order Added by Discern Expert.Performed By: #### 5229486, 01447861, 01994296, 8640167, 5378428 ####[address] [address]Femetaizyqc/100 WBC (Bld)50.9 %Yojylk01.0-75.0 The [facility] HospitalComment on above:Order Comment: Order Added by Discern Expert.Performed By: #### 0550673, 80202912, 26158539, 8212954, 8560927 ####[address] [address] Neutrophils/Leukocytes Auto (Bld) [Pure # fraction]2.8 E9/LNormal2.0-7.5FTriHealth Good Samaritan HospitalComment on above:Order Comment: Order Added by Discern Expert.Performed By: #### 3791734, 46274267, 91412118, 2560348, 0386565 ####[address] [address]YQO w/ Auto Diffon 18-72-1221Xyikuyqwjwc distribution width (RBC) [Ratio]12.6 % Cwixuh57.9-14.2FTriHealth Good Samaritan HospitalComment on above:Performed By: #### 0297571, 27720616, 55602795, 4946030, 7023512 ####[address] [address]Xcyefuckie (Bld) [Volume fraction] 40.4 %Qnprba04.0-46.0The [facility] HospitalComment on above:Performed By: #### 5578095, 07641353, 60306663, 5166008, 0562565 ####[address] [address]Xuvzabayzy (Bld) [Mass/Vol] 14.1 g/jEStgynz09.0-16.0The [facility] HospitalComment on above:Performed By: #### 2154954, 00885250, 24270017, 4464607, 2653287 ####[address] [address]WON (RBC) [Entitic mass]32.1 xaMlvmpu81.0-34.0The [facility] HospitalComment on above:Performed By: #### 3475185, 36569136, 07661138, 3791994, 8435498 ####[address] [address]SMSL (RBC) [Mass/Vol]34.8 g/dLNormal 31.4-36.0The [facility] HospitalComment on above:Performed By: #### 0555765, 96606708, 59033335, 2913802, 3606561 ####[facility] [address] [place] [address]LIO (RBC) [Entitic vol]92.1 fLNormal 80.0-100.0The [facility]vue HospitalComment on above:Performed By: #### 2973125, 34604313, 56509856, 3923767, 8580976 ####[address] [address]Ksjwkisp mean volume (Bld) [Entitic vol]9.1 fLNormal6.4-10.8The [facility] HospitalComment on above:Performed By: #### 3451157, 43156061, 90342482, 8282314, 3647027 ####[address] [address]Toudfthxh (Bld) [#/Vol]238.0 E9/TSoyysk165.0-500.0The [facility] HospitalComment on above:Performed By: #### 3266937, 62155136, 28410766, 7002897, 9047327 ####[address] [address]KXI (Bld) [#/Vol]4.4 E12/L Normal4.3-5.9The [facility] HospitalComment on above:Performed By: #### 6351244, 09395566, 02672588, 4184300, 7003022 ####[address] [address]DYT corrected for nucl RBC Auto (Bld) [#/Vol]5.6 E9/LNormal4.0-11.0The [facility]vue HospitalComment on above: Performed By: #### 0941458, 88521380, 18559136, 4271828, 6523246 ####[facility] [address] [place], [place] [address]UHIwu 10-08-2022 Albumin [Mass/Vol]4.7 g/dLNormal3.3-5.0The [facility] HospitalComment on above:Performed By: #### 1197704, 02376139, 42443903, 8943159, 4000618 ####[facility] [address] [place] [address] Albumin/Globulin (S) [Mass conc ratio]1.4Ghzoop6.1-2.2FTriHealth Good Samaritan HospitalComment on above:Performed By: #### 0887081, 68912311, 24791188, 5708176, 2481817 ####[facility] [address] [place] [address]CKX [Catalytic activity/Vol]42 Int._Unit/ITjqmzj33-57VeaswzThe Bellevue HospitalComment on above:Performed By: #### 3125377, 47979565, 50498884, 2958910, 9667006 ####[facility] [address] [place], [place] [address]CLM No additional P-5'-P [Catalytic activity/Vol]15 Int._Unit/LNormal6-46 The [facility]vue HospitalComment on above:Performed By: #### 5224342, 40963074, 16279234, 9294145, 4875041 ####[facility] [address] [place], [place] [address]Xisgz gap [Moles/Vol]13 mmol/LNormal6-16 The [facility] HospitalComment on above:Performed By: #### 3002788, 78039171, 63688760, 0446072, 9487717 ####[facility] [address] [place], [place] [address]RAX [Catalytic activity/Vol]22 Int._Unit/LNormal5-43Fisher Garrett Medical CenterComment on above:Performed By: #### 8319918, 52694876, 31537398, 9252603, 6589305 ####[facility] [address] [place], [place] [address]Hjlvumulp [Mass/Vol]0.5 mg/dL Normal0.0-1.1FTriHealth Good Samaritan HospitalComment on above:Performed By: #### 5523422, 67274034, 78808211, 9443532, 0774820 ####[facility] [address] [place], [place] [address]Vzdwwzn [Mass/Vol]9.4 mg/dLNormal 8.9-11.1FTriHealth Good Samaritan HospitalComment on above:Performed By: #### 1534555, 12201284, 25176496, 4683691, 4678431 ####[facility] [address] [place], [place] [address]Dpnliqqd [Moles/Vol]107 mmol/LNormal 101-111The [facility] HospitalComment on above:Performed By: #### 2829348, 36858783, 88159318, 6934767, 2784190 ####[facility] [address] [place], [place] [address]DB5 [Moles/Vol]24 mmol/VAvyyhm34-88 The [facility] HospitalComment on above:Performed By: #### 1704342, 99280175, 46027339, 5032961, 0640017 ####[facility] [address] [place], [place] [address]Ppydiedjez [Mass/Vol]0.7 mg/dLNormal 0.5-1.3FTriHealth Good Samaritan HospitalComment on above:Performed By: #### 3182308, 59892388, 36999406, 4522731, 5709197 ####[facility] [address] [place], [place] [address]Rvzilbua (S) [Mass/Vol]3.2 g/dLNormal 1.4-4.0The [facility] HospitalComment on above:Performed By: #### 2455416, 01792125, 62101238, 3550577, 5743888 ####[facility] [address] [place], [place] [address]Ffmtmyw [Mass/Vol]105 mg/oKIswxsy52-408 The [facility] HospitalComment on above:Result Comment: If this glucose result represents a fasting glucose, interpretation should refer tothe following reference range: 55-99 mg/dLPerformed By: #### 5612045, 42263380, 57031367, 8239296, 5354134 ####[facility] [address] [place], [place] [address]Wnhnkbzyo [Moles/Vol]3.9 mmol/LNormal3.5-5.3FTriHealth Good Samaritan HospitalComment on above:Performed By: #### 4144561, 81009732, 24138534, 2545397, 5509075 ####[facility] [address] [place], [place] [address]Gfzxgjl [Mass/Vol]7.9 g/dLHigh6.0-7.8The [facility] HospitalComment on above:Performed By: #### 5391325, 39331254, 62193819, 0140484, 5302377 ####[facility] [address] [place], [place] [address]Zhsyzu [Moles/Vol]140 mmol/YLewcyy614-398MufpniThe Bellevue HospitalComment on above:Performed By: #### 9247208, 87740183, 00581680, 0217166, 8330572 ####[facility] [address] [place], [place] [address]Pzwn nitrogen [Mass/Vol]17 mg/dLNormal5-21The [facility] HospitalComment on above:Performed By: #### 4878490, 49947990, 92984443, 3054305, 3445688 ####[facility] [address] [place], [place] [address]Liho nitrogen/Creatinine [Mass ratio]24 No OhnuyJdws46-33SocxjyThe [facility] Hospital Comment on above:Performed By: #### 2259062, 29370278, 41262034, 8866441, 1294612 ####[facility] [address] [address]Duqvgmw for Treatmenton 55-04-7077Cxtmlvk for Treatment [id number]#1.00CD:127NormalWadsworth-R[facility] Medicine Office/Clinic Noteon 39-95-2653Smbuar Medicine Office/Clinic NoteChief Complaint Establish care --- [...] Dr Marshall scheduled for nov 2022 Specialists: Bacteriology Technician: Bird Álvarez in [place]- contacts most of the time, Dentist: UTD - no issues- Dr Nila MARSHALL- [facility] Review of Systems PHQ Score [...] Pap testing and gynecologic 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 Discussed self breast exams and other health [...] and exercise increasing. Patient encouraged to use nhpr-rnv-fhjrrnl MiraLAX or Colace, encouraged Preparation H awrz-cjm-cqhychl topical treatments if needed. \ Follow-up only if needed. Patient only having minimal complaints 3. Constipation in female (K59.00: Constipation, unspecified) see #3 4. BMI 20.0-20.9, ad (more content not included)...[facility] Medical CenterComment on above:Result Comment: Electronically Signed By: Ya Wang\.br\Date and Time Signed: 10/08/22 16:30 EDTPatient Educationon 57-78-4310Ubvudtm EducationEndocrinology Hypoglycemia Hypoglycemia occurs when the level [...] instructions at home: General instructions ? Take bzam-iov-fybglhz and prescription medicines only as told by your health care provider. ? Monitor your blood glucose as told by your health care provider. ? If you drink alcohol: ? Limit how much you have to: ? 0?1 (more content not included)...NormalAden[facility] With T4fr Reflexon 23-30-5345QNE Qn0.58 m[IU]/LNormal0.34-5.60The [facility] HospitalComment on above:Performed By: #### 1559430, 18070936, 72995299, 0658545, 9738759 ####[facility] [address] [place], [place] [address]nGZMgr 18-46-3909IRE/1.73 sq M.predicted among non-blacks MDRD (S/P/Bld) [Vol rate/Area]124 mL/min/1.73 w3Pnbxia>=59Fisher [facility] Medical CenterComment on above:Order Comment: Order added by Discern Expert.Result Comment: Chronic kidney disease could be indicated at eGFR's of less than 60 mL/min/1.73m2. K idney failure is indicated at less than 15 mL/min/1.73m2.Performed By: #### 7481081, 70135516, 83034374, 3617864, 6424696 ####[facility] [address] [place], [place] [address]ZOO ACOG PANEL 2: 21 to 29on 10-23-2021..NormalRegional Medical CenterComment on above:Performed By: #### CBC #### [facility] [address] [place] [address] Dr. Rima Dinh Gdln ACOG Fxyzqnx21-65TibooiMuxThe Christ HospitalCompromedica [facility] on above:Performed By: #### CBC #### [facility] [address] [place] [address] Dr. Rima CharlesDIAGNOSIS:CommentThe [facility] System on above: Result Comment: NEGATIVE FOR INTRAEPITHELIAL LESION OR MALIGNANCY. THIS SPECIMEN WAS RESCREENED PART OF OUR ED TECH PROGRAM.Performed By: #### CBC #### [facility] [address] [place] [address] Dr. Rima CharlesMethodology:CommentThe [facility] System on above: Result Comment: This liquid based ThinPrep(R) pap test was screened with the use of an image guided system.Performed By: #### CBC #### [facility] [address] [place] [address] Dr. Rima CharlesNote:CommentThe [facility] System on above:Result Comment: The Pap smear is a screening test designed to aid in the detection of premalignant and malignant conditions of the uterine cervix. It is not a diagnostic procedure and should not be used as the sole means of detecting cervical cancer. Both false-positive and false-negative reports do occur. .Performed By: #### CBC #### [facility] [address] [place] [address] Dr. Rima CharlesPerformed by:CommentThe [facility]Health System on above: Result Comment: Piter Cagle, Ob/Gyn Doctor (ASCP)Performed By: #### CBC #### [facility] [address] [place] [address] Dr. Rima Bryson reviewed by:[facility] on above:Result Comment: Hannah Morejon, Supervisory Ob/Gyn Doctor (ASCP) Performed By: #### CBC #### [facility] [address] [place] [address] Dr. Rima CharlesReflex Criteria:CommentThe [facility] System on above:Result Comment: The HPV DNA reflex criteria were not met with this specimen result therefore, no HPV testing was performed. .Performed By: #### CBC #### [place] [address] Dr. Rima CharlesSpecimen adequacy:CommentThe [facility]Health System on above:Result Comment: Satisfactory for evaluation. Endocervical and/or squamous metaplastic cells (endocervical component) are present. Areas of partially obscuring blood are present.Performed By: #### CBC #### [facility] [address] [place] [address] Dr. Rima Cornell T4on 52-08-6161Tbki T4 [Mass/Vol]1.01 ng/dLNormal0.76-1.46 [facility] on above:Performed By: #### FT4 #### [facility] [address] [place] [address] Dr. Rima BrowerHoagustín 70-06-5604RNO8.997 uIU/mLCritically high0.358-3.740[facility] on above:Performed By: #### TSH #### [facility] [address] [place] [address] Dr. Rima CharlesVAGINITIS/VAGINOSIS DNA PROBEon 47-24-4585Jbxrtpu speciesNegative NormalNegativeThe [facility] on above:Performed By: #### CBC #### [facility] [address] [place] [address] Dr. Rima Moonerejoba vaginalisNegativeNormalNegativeRegional Medical Center Comment on above:Performed By: #### CBC #### [facility] [address] [place] [address] Dr. Rima Calvo vaginalisNegativeNormalNegativeRegional Medical Center Comment on above:Performed By: #### CBC #### [facility] [address] [place] [address] Dr. Rima CharlesCHLAMYDIA/GONOCOCCUS FRANSISCO (SWAB/URINE/PAPon 02-25-6543Ofwasktjc trachomatis, NAANegativeNormalNegativeRegional Medical CenterComment on above: Performed By: #### CBC #### [facility] [address] [place] [address] Dr. Rima CharlesNeisseria gonorrhoeae, NAANegativeNormalNegativeRegional Medical CenterComment on above:Performed By: #### CBC #### [facility] [address] [place] [address] Dr. Rima CharlesVAGINITIS/VAGINOSIS DNA PROBEon 32-51-0277Vtcitdz speciesNegative NormalNegativeRegional Medical CenterComment on above:Performed By: #### VAGINT #### [facility] [address] [place] [address] Dr. Rima Moonerebenedict vaginalisNegativeNormalNegativeRegional Medical Center Comment on above:Performed By: #### VAGINT #### [facility] [address] [place] [address] Dr. Rima Calvo vaginalisNegativeNormalNegativeRegional Medical Center Comment on above:Performed By: #### VAGINT #### [facility] [address] [place] [address] Dr. Rima Livingston 84-10-9520ZMN4.494 uIU/mLNormal0.470-4.680Regional Medical CenterComment on above:Performed By: #### CBC #### [facility] [address] [place] [address] Dr. Rima Dougherty RANGESEE [facility] HospitalComment on above: Result Comment: <0.34 UIU/ml HYPERTHYROID 0.34-5.60 UIU/ml EUTHYROID >5.60 UIU/ml HYPOTHYROIDPerformed By: #### CBC #### [facility] [address] [address] [address] Rima Barnes MATERNAL FOR SPINA BIFIDAon 95-82-8983XXH MoM0.98High[facility] HospitalComment on above:Performed By: #### AFPMAT #### [facility] [address] [address] [address] Rima Barnes Value36.3 ng/mLNormalRegional Medical CenterComment on above: Performed By: #### AFPMAT #### [facility] [address] [address] [address] Rima Barnes, Serum for Spina BifidaReSelect Medical Specialty [facility], [facility] Comment on above:Performed By: #### AFPMAT #### [facility] [address] [address] [address] Elizabeth Youngstown HospitalComment on above:Result Comment: Alie Moon, Ph.D., [facility] Director . References: Available Upon Request. . Multiples Of Median Cutoffs For AFP Elevations Murphy 2.5 Black 2.8 IDD 2.0 Twins 4.5 Abbreviation Definitions IDD - Insulin Dep Diabetes OSBR - Open Spina Bifida Risk . For further inquiries contact [facility] at [phone].Performed By: #### AFPMAT #### [facility] [address] [address] [address] Rima Pedro Age Collection Date16.0 weeksHighland [facility] Hospital Comment on above:Performed By: #### AFPMAT #### [facility] [address] [address] [address] Rima Pedroat, Age Based onLMPNormalRegional Medical CenterComment on above:Result Comment: Recalculations are not recommended when gestational dating by LMP and ultrasound are within 10 days.Performed By: #### AFPMAT #### [facility] [address] [place] [address] Dr. Rima CharlesBellevue HospitalCompromedica [facility] on above:Performed By: #### AFPMAT #### [facility] [address] [place] [address] Dr. Rima ChralesInterpretationMercy Health St. Elizabeth Youngstown HospitalCompromedica cold[facility] hospital on above: Result Comment: Interpretation: Screen [...] Customer Services to discuss available options. The [employer] recommends amniocentesis be offered to women age 35 and older.Performed By: #### AFPMAT #### [facility] [address] [place] [address] Dr. Rima CharlesMaternahaley Age at EDD23.4 yrHighland District HospitalCompromedica coldwater regional hospital on above:Performed By: #### AFPMAT #### [facility] [address] [place] [address] Dr. Rima Erazo [facility] HospitalComp[facility] on above: Performed By: #### AFPMAT #### [facility] [address] [place] [address] Dr. Rima CharlesOSBR Risk 1 [id number] District HospitalCompromedica coldwater regional hospital on above: Performed By: #### AFPMAT #### [facility] [address] [place] [address] Dr. Rima Meadows.[facility] on above:Performed By: #### AFPMAT #### [facility] [address] [place] [address] Dr. Rima MccoyBellevue HospitalComment on above: Performed By: #### AFPMAT #### [facility] [address] [place] [address] Dr. Rima Urena Results:NegativeNormalThe [facility] HospitalComment on above: Performed By: #### AFPMAT #### [facility] [address] [place] [address] Dr. Rima Del Rosario B SURFACE ANTIGEN SCREENon 77-76-7983GAnPz ScreenNegative NormalNegativeThe [facility] HospitalComment on above:Performed By: #### HBSANS #### [facility] [address] [place] [address] Dr. Rima RiosTIS C ANTIBODYon 64-19-9163Zag C Virus Ab<0.7Ufcswc1.0-0.9 [facility] on above:Result Comment: Negative: < 0.8 Indeterminate: 0.8 - 0.9 Positive: > 0.9 . The CDC recommends that a positive HCV antibody result be followed up with a HCV Nucleic Acid Amplification test (532563).Performed By: #### HCV #### [facility] [address] [place] [address] Dr. Rima Chery 1 AND 2 WITH REFLEXon 22-22-8735FEY Screen 4th Generation wRfxNon-ReactiveNormalNon ReactiveThe [facility] HospitalCompromedica [facility] on above: Performed By: #### HIV12 #### [facility] [address] [place] [address] Dr. Rima CharlesRPR QUANTon 52-92-8664Fmjke Plasma Reagin, QuantNon-Reactive NormalNonRea<1:1[facility] on above:Performed By: #### CBC #### [facility] [address] [place] [address] Dr. Rima MirelesBELLA AB IGGon 65-81-0782Gvkotgx Antibodies, IgG2.33 index NormalImmune >0.99[facility] on above:Result Comment: Non- immune <0.90 Equivocal 0.90 - 0.99 Immune >0.99Performed By: #### RUBIGG #### [facility] [address] [address] [address] Rima Sierra AUTO DIFFon 21-54-4183NIHE #0.0 103/ulNormal0.0-0.1The [facility] Centerment on above:Performed By: #### CBC #### [facility] [address] [address] [address] Rima CharlesBasophils/100 WBC (Bld)0.4 %Normal0.2-2.0[facility] Comment on above:Performed By: #### CBC #### [facility] [address] [place] [address] Dr. Rima Fuller #0.0 103/ulNormal0.0-0.7The [facility] HospitalComment on above: Performed By: #### CBC #### [facility] [address] [place] [address] Dr. Rima Leahyosinophils/100 WBC (Bld)0.6 %Critically low0.9-7.0The [facility] HospitalComment on above:Performed By: #### CBC #### [facility] [address] [place] [address] Dr. Rima Leahyrythrocyte distribution width (RBC) [Ratio]12.0 %Neuvmz77.0-15.0 The [facility] HospitalComment on above:Performed By: #### CBC #### [facility] [address] [place] [address] Dr. Rima CharlesHematocrit (Bld) [Volume fraction]37.5 %Pmoydx68.0-48.0The [facility] HospitalComment on above:Performed By: #### CBC #### [facility] [address] [place] [address] Dr. Rima CharlesHemoglobin (Bld) [Mass/Vol]13.2 g/aQByjhae50.0-16.0The [facility] Centerment on above:Performed By: #### CBC #### [facility] [address] [place] [address] Dr. Rima Carreno #0.02 10e3/ulNormal0.00-0.03The [facility] Centerment on above:Performed By: #### CBC #### [facility] [address] [address] [address] Rima Carreno %0.3 %Normal0.0-0.5The [facility] HospitalCompromedica [facility] on above: Performed By: #### CBC #### [facility] [address] [address] [address] Rima Singleton #1.4 103/ulNormal1.2-3.8The [facility] HospitalCompromedica [facility] on above:Performed By: #### CBC #### [facility] [address] [place] [address] Dr. Rima Jayhocytes/100 WBC (Bld)20.2 %Critically low20.5-60.0The [facility] HospitalCompromedica [facility] on above:Performed By: #### CBC #### [facility] [address] [place] [address] Dr. Rima Lr DIFF REQNONormalThe [facility] HospitalComment on above: Performed By: #### CBC #### [facility] [address] [place] [address] Dr. Rima Nicholas (RBC) [Entitic mass]33.2 bqEsikzn18.7-34.0[facility] on above:Performed By: #### CBC #### [facility] [address] [place] [address] Dr. Rima Fall (RBC) [Mass/Vol]35.2 g/aUKqlqqj54.9-35.2The [facility] Centerment on above:Performed By: #### CBC #### [facility] [address] [place] [address] Dr. Rima Fall (RBC) [Entitic vol]94.5 xHSvxfsx92.0-99.0[facility] on above:Performed By: #### CBC #### [facility] [address] [place] [address] Dr. Rima Grossman #0.4 103/ulNormal0.3-0.8The [facility] HospitalComment on above:Performed By: #### CBC #### [facility] [address] [place] [address] Dr. Rima Wenocytes/100 WBC (Bld)6.1 %Normal1.7-12.0The [facility] Comment on above:Performed By: #### CBC #### [facility] [address] [place] [address] Dr. Rima Huston #5.1 103/ulNormal1.4-6.5The [facility] HospitalComment on above:Performed By: #### CBC #### [facility] [address] [place] [address] Dr. Rima Bobutrophils/100 WBC (Bld)72.4 %Tyaupq91.0-75.0The [facility] HospitalComment on above:Performed By: #### CBC #### [facility] [address] [place] [address] Dr. Rima Bradfordlet mean volume (Bld) [Entitic vol]11.2 fLNormal9.5-13.5The [facility] HospitalComment on above:Performed By: #### CBC #### [facility] [address] [place] [address] Dr. Rima CharlesPLT221 103/brFplccu865-080Dbx [facility] HospitalComment on above: Performed By: #### CBC #### [facility] [address] [place] [address] Dr. Rima CharlesRBC3.97 106/ulCritically low4.20-5.40The [facility] HospitalComment on above:Performed By: #### CBC #### [facility] [address] [place] [address] Dr. Rima CharlesWBC7.1 103/ulNormal4.0-11.0The [facility] HospitalComment on above: Performed By: #### CBC #### [facility] [address] [place] [address] Dr. Rima Cardenas URINEon 35-14-0511CJTSUGH URINECulture Observations: No growthNoThe Christ HospitalComment on above:Performed By: #### CBC #### [facility] [address] [place] [address] Dr. Rima ChalresGLYCOHEMOGLOBIN A1Con 05-18-6625UTS RECOMMENDATIONADA THERAPEUTIC TARGET 6.0 - 7.0 ACTION SUGGESTED > 7.0NoThe Christ HospitalComment on above:Performed By: #### A1C #### [facility] [address] [place] [address] Dr. Rima CharlesGlucose [Mass/Vol]111 mg/dLHighland District HospitalComment on above:Performed By: #### A1C #### [facility] [address] [place] [address] Dr. Rima CharlesHbA1c (Bld) [Mass fraction]5.5 %Normal<=6.0[facility] Comment on above:Performed By: #### A1C #### [facility] [address] [place] [address] Dr. Rima Escalante BOX TEST PT SEND OUTon 92-68-8588SEMY TO REF LAB12/09/20 NormalRegional Medical CenterCompromedica coldwater regional hospital on above:Performed By: #### CBC #### [facility] [address] [place] [address] Dr. Rima BrowerHoagustín 07-91-2753EKP0.651 uIU/mLNormal0.470-4.680The [facility] HospitalCompromedica [facility] on above:Performed By: #### CBC #### [facility] [address] [place] [address] Dr. Rima Dougherty RANGESEE BELOWHighland District HospitalComment on above: Result Comment: <0.34 UIU/ml HYPERTHYROID 0.34-5.60 UIU/ml EUTHYROID >5.60 UIU/ml HYPOTHYROIDPerformed By: #### CBC #### [facility] [address] [place] [address] Dr. Rima CharlesTYPE AND SCREENon 39-29-2428RZDP AND SCREENNegativeNoThe Christ HospitalComment on above:Performed By: #### CBC #### [facility] [address] [address] [address] Rima Butler PREG TVon 27-15-3126GB PREG TVEXAMINATION: US PREG TV HISTORY: Urine [...] Electronically authenticated by: LILIANE POPE Date: 2020-12-02 09:34[facility] Vital Signs Date TimeVital SignValuePerforming ZxsxbggpjWlwxveuj01-36-6080 08:39-0500Body mass index (BMI) [Ratio]26.29 kg/b1Vmplo Virgance DO Work Phone: [phone] [place], [place] [address]Upragavykt58-26-0583 08:39-0500Body dsiobf89.67 kgCorey RightsFlow Work Phone: [phone] [place], [place] [address]Osdbnbmots55-59-9229 08:39-0500Diastolic blood vhhpfbia09 mm[Hg][employer] Work Phone: [phone] [place], [place] [address]Dwmepcybnh92-40-2429 08:39-0500Systolic blood hfecjhov567 mm[Hg][employer] Work Phone: [phone] [place], [place] [address]Ffgidohcru27-85-5271 08:35-0400Body mass index (BMI) [Ratio]26.71 kg/u4Dbodf Joanna [employer] Work Phone: [phone] CenterIpkyqnsdxt63-92-9881 08:35-0400Body vyhoma82.8 kg [employer] Work Phone: [phone] Medical CenterDzcwzdhwcr45-85-1856 08:35-0400Diastolic blood mfxobmnk68 mm[Hg]Santosh Joanna DO Work Phone: [phone] [place], [place] [address]Qwscaeejgq36-99-4247 08:35-0400Systolic blood euqzcdml284 mm[Hg]Santosh Joanna DO Work Phone: [phone])[facility] [place], [place] [address]Jhkzzqjhve17-53-4020 11:20-0400Body mass index (BMI) [Ratio]25.38 kg/b8Yqozq Joanna DO Work Phone: [phone])[facility] [place], [place] [address]Tdjiwlbhds54-29-4228 11:20-0400Body uhdiuh60.17 kgCorey Joanna DO Work Phone: [phone])[address] [place] [address]-13-2025 11:20-0400Diastolic blood ffikkulf77 mm[Hg]Santosh Joanna DO Work Phone: [phone])[facility] [place], [place] [address]Cajvcyuhsi08-21-2736 11:20-0400Systolic blood eilhjmho761 mm[Hg]Santosh Joanna DO Work Phone: 1(077)[address] [place], [place] 6385309-22-2025 10:23-0400Body mass index (BMI) [Ratio]24.79 kg/m2Amy Brea PA Work Phone: [phone])[facility] [place], [place] [address]Ynpdmzlmzq98-21-5636 10:23-0400Body qwuvym09.59 kgAmy Brea PA Work Phone: [phone])[facility] [place], [place] [address]Wyyeickzpv38-71-8199 10:23-0400Diastolic blood grkekqdt34 mm[Hg]Erum Guidry PA Work Phone: 1(052)[facility] [place], [place] [address]Snmzwmmlys41-72-4203 10:23-0400Systolic blood mm[Hg]Erum Guidry PA Work Phone: [phone])[facility] [place], [place] [address]Xgildvfmsg22-59-5281 11:45-0400Body mass index (BMI) [Ratio]23.15 kg/b3Hcctf Joanna DO Work Phone: 1(088)[facility] [place], [place] [address]Ghqmoftmpn05-55-0804 11:45-0400Body .1 kg Santosh Joanna DO Work Phone: 1(311)[facility] [place], [place] [address]Cpglviedhc78-17-2099 11:45-0400Diastolic blood qizapvfz78 mm[Hg]Santosh Joanna DO Work Phone: [facility] CenterSojkjimhth21-82-1523 11:45-0400Systolic blood ckhujzyp928 mm[Hg]Santosh Bhaktao DO Work Phone: [phone]08-18-2025 11:51-0400Body lyskee169.1 cmJacklyn Campos MD Work Phone: [phone])[address] [place], [place] 85[address]108-18-2025 11:51-0400Body mass index (BMI) [Ratio]23.03 kg/o9YvtdfqxjJacklyn Campos MD Work Phone: 1(162)[address] [place], [place] 85[address]108-18-2025 11:51-0400Body ykiimv59.78 kgJacklyn Campos MD Work Phone: [phone])[address] [place], [place] 8536108-18-2025 11:51-0400Diastolic blood aqmumlul88 mm[Hg]Jacklyn Campos MD Work Phone: 1(559)[address] [place], [place] 85[address]108-18-2025 11:51-0400Heart rate 94 /minJacklyn Campos MD Work Phone: 1(174)[address] [place], [place] 85[address]108-18-2025 11:51-0400Systolic blood wtlyfixx71 mm[Hg]Jacklyn Campos MD Work Phone: 1(707)[address] [place], [place] 85[address]107-28-2025 10:13-0400Body mass index (BMI) [Ratio]22.38 kg/m2Erum HAYS Work Phone: [phone] [place], [place] [address]Pedcysxvei34-71-7418 10:13-0400Body fodwxc50.01 kgErum HAYS Work Phone: [phone] [place], [place] [address]Nbfkvwbnzn46-44-0184 10:13-0400Diastolic blood nwfyydop40 mm[Hg]Erum HAYS Work Phone: 1([phone])153-[address] [place], [place] [address]Pcneommhtb24-12-3382 10:13-0400Systolic blood tsdpress272 mm[Hg]Erum HAYS Work Phone: [facility] CenterIpizfhckob24-98-8536 11:10-0400Body mass index (BMI) [Ratio]22.1 kg/n4Aiist Joanna DO Work Phone: 1(646)348-[address] [place], [place] [address]Xsmgppryoe56-22-9066 11:10-0400Body qnsjpe95.24 kgCorey Joanna DO Work Phone: 1(780)[facility] [place], [place] [address]Gmcskwpzbg89-36-2356 11:10-0400Diastolic blood wqyghkjk25 mm[Hg]Santosh Joanna DO Work Phone: 1(478)[facility] [place], [place] [address]Krskohhyqd68-96-7630 11:10-0400Systolic blood wtedstla709 mm[Hg]Santosh Joanna DO Work Phone: 1(770)[address] [place], [place] 6385305-30-2025 10:00-0400Body mass index (BMI) [Ratio]22.86 kg/m2[facility]05-30-2025 10:00-0400Body iafgxi93.32 kgSaint [facility] Hospital05-30-2025 10:00-0400Diastolic blood bkcipoub52 mm[Hg][facility]05-30-2025 10:00-0400Systolic blood fzxhrewa262 mm[Hg][facility]09-23-2024 14:19-0400Body mass index (BMI) [Ratio]21.15 kg/j9Pupfj Joanna DO Work Phone: 1(324)[facility] [place], [place] [address]Phzgbwchlp56-39-2660 14:19-0400Body xmzebh08.66 kgCorey Joanna DO Work Phone: 1(376)975-[facility] CenterZldchapkqu10-86-0317 14:19-0400Diastolic blood qugoluvf88 mm[Hg]Santosh Joanna DO Work Phone: [facility] CenterWicthkbwmb42-05-5802 14:19-0400Systolic blood ejxiretv847 mm[Hg]Santosh Joanna DO Work Phone: 1([phone] [place], [place] [address]Kuuezefhlj42-93-3442 15:43-0400Blood Pressure Eladia Thornton 484-6016Kkyxsu-PifxwAdena [facility] Dtba81-76-8828 15:43-0400Diastolic blood fvmbszpu36 mm[Hg]Ya Thornton 521-6713Mgzdec-Jieht[address] [place], [place] 6227405-20-2024 15:43-0400Heart ijcl244 /Waqar Thornton [phone]-Ajogs[address] [place], [place] 6227405-20-2024 15:43-0400Respiratory rate18 /Waqar Thornton 639-1084Vqzjke-Ckqis[address] [place], [place] 6227405-20-2024 15:43-8089VhG4% (BldA) [Mass fraction]100 %Ya Thornton [address] [place], [place] 1605205-20-2024 15:43-0400Systolic blood xlniyjsc635 mm[Hg]Ya Thornton [address] [place], [place] 1605212-20-2023 07:21-0500Blood Pressure LocationYa Thornton [address] [place], [place] 1605212-20-2023 07:21-0500Body ukkbabpgllc35.52 [degF]Ya Thornton [address] [place], [place] 1605212-20-2023 07:21-0500Diastolic blood xxbmmbem73 mm[Hg]Ya Thornton [address] [place], [place] 1605212-20-2023 07:21-0500Heart rate91 /Waqar Thornton [address] [place], [place] 1605212-20-2023 07:21-0500Respiratory rate18 /Waqar Thornton [address] [place], [place] 1605212-20-2023 07:21-4731XtY9% (BldA) [Mass fraction]100 %Ya Thornton [address] [place], [place] 1605212-20-2023 07:21-0500Systolic blood mm[Hg]Ya Thornton [phone]-MluvzTrumbull [facility] Hospital12-04-2023 12:53-0500Blood Pressure LocationYa Thornton 184-5538Ukvnbq-Strif[address] [place], [place] 6227412-04-2023 12:53-0500Diastolic blood ukilndfq39 mm[Hg]Ya Thornton 024-3772Rdzoer-Mpapt[address] [place], [place] 6227412-04-2023 12:53-0500Heart xpmw569 /Waqar Thornton 230-4527Kabakc-Aojft[address] [place], [place] 6227412-04-2023 12:53-0500Respiratory rate18 /Waqar Thornton 273-6648Luwtqo-Arugw[address] [place], [place] 6227412-04-2023 12:53-8202ZwN4% (BldA) [Mass fraction]99 %Ya Thornton [phone]-Bdjyy[address] [place], [place] 6227412-04-2023 12:53-0500Systolic blood rocpbjia667 mm[Hg]Ya Thornton [phone]-Jgacj[address] [place], [place] 6227409-12-2023 12:10-0400Blood Pressure LocationDaniel Gray [phone]-VaqthC[facility]09-12-2023 12:10-0400Body kbnowaygofp40.52 [degF]Daniel Gray 048-2633Mgceen-AgcjgC[facility] Clinic [facility]09-12-2023 12:10-0400Diastolic blood vphbttuv49 mm[Hg]Daniel Gray 922-6779Idcnif-WixmdC[facility] Clinic [facility]09-12-2023 12:10-0400Heart rate97 /Hans Gray [phone]-GthszC[facility] Clinic [facility]09-12-2023 12:10-0400Systolic blood kpxumqmb158 mm[Hg]Daniel Gray [phone]-QdnuwC[facility] Clinic [facility]08-24-2023 09:20-0400Blood Pressure LocationYa Thornton [phone]-Hfjua[address] [place], [place] 6227408-24-2023 09:20-0400Body pibxwuamfjx28.06 [degF]Yasampson Thornton 169-9211Qrkiuu-Qngyf[address] [place], [place] 6227408-24-2023 09:20-0400Diastolic blood ycnafnti12 mm[Hg]Ya Thornton 011-5929Txhonq-Ynnoo[address] [place], [place] 6227408-24-2023 09:20-0400Heart rate76 /minEgerald Thornton 841-2361Gnxcyg-Kmolv[address] [place], [place] 6227408-24-2023 09:20-3820HaQ3% (BldA) [Mass fraction]98 %Yasampson Thornton [phone]-Pcclp[address] [place], [place] 6227408-24-2023 09:20-0400Systolic blood ibljgdnh131 mm[Hg]Ya Thornton 130-8342Milmgp-Ubbrg[address] [address] [place], [place] 6227402-13-2023 14:14-0500Blood Pressure LocationRitu Desai [phone]-Vdhkx[address] [place], [place] 6227402-13-2023 14:14-0500Body .7 [degF]Ritu Desai [phone]-Qsvfn[address] [place], [place] 6227402-13-2023 14:14-0500Diastolic blood frcxrlod91 mm[Hg]Ritu Desai [phone]-Hnjbe[address] [place], [place] 6227402-13-2023 14:14-0500Heart rate71 /minRitu Desai 577-2445Cnyykx-Vluvy[address] [place], [place] 6227402-13-2023 14:14-9784JuA9% (BldA) [Mass fraction]98 %Ritu Desai [phone]-GvutuMetrohealth [facility] Qcgk13-30-8120 14:14-0500Systolic blood talazutg808 mm[Hg]Ritu Moralesell [phone]-PlttwMetrohealth [facility] Primary Jtkx87-55-3230 02:06-0400Body yxfbch76.968 kgDR [facility] HospitalComment on above:Performed By: #### AFPMAT #### [facility] [address] [address] [address] Rima Charles Encounters Encounter DateEncounter TypeCare ProviderFacilityStart: 01-28-2025 End: 47-58-0492Aqocqj flowsheetCorey Joanna DO Work Phone: [facility]BGYNStart: 01-28-2025 End: 82-70-7112Fbmlpn flowsheetCorey Joanna DO Work Phone: [facility] OBGYNStart: 01-28-2025 End: 30-35-3286Xlkalzyi flow sheetCorey Joanna DO Work Phone: NOMS Augustina OBGYNComment on above:Third trimester ([facility]); 32 weeks gestation of ([facility]); Thyroid disease; History of prior with IUGR ; Hypothyroidism, unspecified typeStart: 01-28-2025 End: 06-15-7403hwicvsnmzeHAYPY FAZIONot AvailableStart: 01-14-2025 End: 73-44-7675Wpduxt flowsheetCorey Joanna DO Work Phone: [facility] OBGYNStart: 01-14-2025 End: 42-76-9494Xvtcdc flowsheetCorey Joanna DO Work Phone: [facility] [address] OBGYNStart: 01-14-2025 End: 40-11-8620Lmuhchdp flow sheetCorey Joanna DO Work Phone: [facility] Augustina OBGYNComment on above:Third trimester ([facility]); 30 weeks gestation of ([facility])Start: 01-14-2025 End: 88-54-1810xrrbqlbibfRJIKN FAZIONot AvailableStart: 35-19-9376eixpnoyjau Martaishmael RickettsmarcusFacility:[facility] PCStart: 12-31-2024 End: 61-99-9534Myyrshid flow sheetCorey Joanna DO Work Phone: NOYI Augustina OBGYNComment on above:Third trimester ([facility]); 28 weeks gestation of ([facility])Start: 12-31-2024 End: 62-24-6738jhkbkqzpdyIOCAQ FAZIONot AvailableStart: 12-12-2024 End: 64-19-2199Sfxmyobjn Result EncounterErum HAYS Work Phone: NOZU External Department UnsolicitedStart: 12-12-2024 End: 07-40-0720Uscrxtlln Result EncounterErum HAYS Work Phone: NOUY External Department UnsolicitedStart: 12-11-2024 End: 50-60-9921vtbbgvnhylULFQV R [facility] MEDICAL CENTERTaurusMedisunny Giltner HospitalStart: 12-11-2024 End: 96-83-9332Gkauaynrr Result EncounterErum HAYS Work Phone: NOFW External Department UnsolicitedStart: 12-11-2024 End: 13-38-0224Lkjbptkif Result EncounterErum HAYS Work Phone: NOIO External Department UnsolicitedStart: 12-10-2024 End: 75-49-8288Jwghho flowsheetErum HAYS Work Phone: [facility] OBGYNStart: 12-10-2024 End: 17-33-8032Xsmnae oliviaheetErum HAYS Work Phone: [facility] OBGYNStart: 12-10-2024 End: 49-50-0097Zblmneya flow sheetErum HAYS Work Phone: NOIV Augustina OBGYNComment on above:Size of fetus inconsistent with dates in second trimester ([facility]) (Primary Dx); Second trimester ([facility]); 25 weeks gestation of ([facility]); Diabetes mellitus screeningStart: 12-10-2024 End: 54-02-3950jpeelgeuerCFM RAMFORTINONot AvailableStart: 11-27-2024 End: 58-52-8329vxfelmrlavPQTYS R [facility] [place][note 2] HospitalStart: 11-20-2024 End: 97-61-3478qamputjuauDWFQW R [facility] HospitalStart: 11-12-2024 End: 82-60-0019Ssrucj flowsheetCorey Joanna DO Work Phone: noms Augustina OBGYNStart: 11-12-2024 End: 23-84-5745Jifqaw flowsheetCorey Joanna DO Work Phone: [facility] [address] OBGYNStart: 11-12-2024 End: 74-81-4155Vexuczjo flow sheetCorey Joanna DO Work Phone: [address] Trail OBGYNComment on above:Hypothyroidism, unspecified type (Primary Dx); Second trimester ([facility]); 21 weeks gestation of ([facility]); Vaginal discharge; STD exposureStart: 11-12-2024 End: 36-05-3953uaegcbuchtPMRWU FAZIONot AvailableStart: 11-07-2024 End: 30-23-2882Awtojlfeg Result EncounterCorey Joanna DO Work Phone: noms External Department UnsolicitedStart: 11-07-2024 End: 32-59-7660Ytrnuhztf Result EncounterCorey Joanna DO Work Phone: noms External Department UnsolicitedStart: 11-06-2024 End: 23-40-3154Ulnkop Sesar Smith RNMaternal- Medicine at [facility] HospitalComment on above: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 trimester (Primary Dx); History of prior with IUGR ; History of premature rupture of membranesStart: 11-05-2024 End: 31-66-9227Ovlbea consultation new/estab patient 58 Jesus Campos MD Work Phone: [phone]-Pvoqr [facility] Comment on above:20 weeks gestation of (Primary Dx); Low-lying placenta; 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 trimester; History of prior with IUGR ; Family history of autism; History of gestational diabetes in prior , currently ; History of prior with short cervix, currently ; History of premature rupture of membranesStart: 11-05-2024 End: 97-91-4393fmzqrupjtiRVHFI [facility] HospitalStart: 10-15-2024 End: 58-57-7434Ndffqk flowsLizzie HAYS Work Phone: noms Augustina OBGYNStart: 10-15-2024 End: 54-90-8938Lvslal David HAYS Work Phone: NOIH Trail OBGYNStart: 10-15-2024 End: 54-29-1122Yscevkolp Result EncounterErum HAYS Work Phone: noms External Department UnsolicitedStart: 10-15-2024 End: 07-80-8422Vhjzcmnc flow Mahamed HAYS Work Phone: NOLM Augustina OBGYNComment on above:Second trimester ([facility]); 17 weeks gestation of ([facility])Start: 10-15-2024 End: 81-31-5953vztsmsdyvoRGM RAMEYNot AvailableStart: 10-02-2024 End: 03-00-2273Gloyeeaop Result EncounterCorey Joanna DO Work Phone: noms External Department UnsolicitedStart: 10-02-2024 End: 40-36-2463Msbjwdxjk Result EncounterCorey Joanna DO Work Phone: noms External Department UnsolicitedStart: 09-24-2024 End: 19-40-1635Tnydm Rob Campos MD Work Phone: [phone]-Utckn [facility] Start: 09-24-2024 End: 43-23-9197Tsgemydxe Result EncounterCorey Joanna DO Work Phone: noms External Department UnsolicitedStart: 09-24-2024 End: 49-62-8652Iscnasmed Result EncounterCorey Joanna DO Work Phone: noms External Department UnsolicitedStart: 09-20-2024 End: 30-25-8350Epioey Kashif Gutierrez RNMaternal- Medicine at [facility] HospitalComment on above:Thyroid disease affecting (Primary Dx); History of prior with IUGR newbornStart: 09-17-2024 End: 97-20-6462Mbvqog flowsheetCorey Joanna DO Work Phone: noms BCP OBStart: 09-17-2024 End: 00-50-0361Jxrerw flowsheetCorey Joanna DO Work Phone: noms BCP OBStart: 09-17-2024 End: 34-39-4095krkczardlcMTEPF FAZIONot AvailableStart: 09-17-2024 End: 21-24-9413Lgnfpfgz flow sheetCorey Joanna DO Work Phone: noms BCP OBComment on above:13 weeks gestation of ([facility]); Second trimester ([facility]); Thyroid disease ; History of prior with IUGR ; Diabetes mellitus screeningStart: 09-12-2024 End: 84-36-9695Lrheqxvqh Result EncounterCorey Joanna DO Work Phone: noms External Department UnsolicitedStart: 09-12-2024 End: 88-77-2422Imuixqwuj Result EncounterCorey Joanna DO Work Phone: noms External Department UnsolicitedStart: 08-21-2024 End: 57-80-6118Vhgpcigsd Result EncounterCorey Joanna DO Work Phone: NOMS External Department UnsolicitedStart: 08-21-2024 End: 70-12-7040Phznuzxiw Result EncounterCorey Joanna DO Work Phone: NOMS External Department UnsolicitedStart: 08-17-2024 End: 00-52-0200Soxzva outpatient visit 5 minutesNoms Bcp Ob Joanna NurseNOMS BCP OBComment on above:GA: 2f8wHfbjk: 08-17-2024 End: 65-20-7795hugeawcfkbBXWZQ FAZIONot AvailableStart: 07-09-2024 End: 63-10-9549indzlidqejPmwwnnEric AlmanzarFacility:[facility] PCStart: 07-05-2024 End: 13-80-1879pkbidiaypgOvpid J SosinskiFacility:[place] PCStart: 07-04-2024 End: 32-47-1686tbaunmnqtmHglkvtEric AlmanzarFacility:FTMCStart: 07-04-2024 End: 71-03-6081Yhopjrf encounter Patsy Almanzar [facility] Start: 05-14-2024 End: 65-87-6311rofxtpkgilPYTUJQ E COSTINAkron [facility]'s [facility] Hospitaltart: 05-14-2024 End: 68-78-3407Jcdxhqudcm hospital visit by Krys Jurado MD Work Phone: [facility] LabComment on above:Family history of autismStart: 12-12-2023 End: 87-77-5405Rimicq flowsheetCorey Joanna DO Work Phone: NOMS BCP OBStart: 12-12-2023 End: 68-83-9316Vrvhvf flowsheetCorey Joanna DO Work Phone: NOMS BCP OBStart: 12-12-2023 End: 74-91-9628Dkoxrjueg Result EncounterCorey Joanna DO Work Phone: noMS External Department UnsolicitedStart: 12-12-2023 End: 25-76-8980Qjwywdx encounter procedureCorey Joanna DO Work Phone: [facility] Work Phone: Start: 12-12-2023 End: 07-76-0481Pjxhtebu preventive med est patient 18-39 yrsCorey Joanna DO Work Phone: NOVL BCP OBComment on above:Well woman exam with routine gynecological examStart: 09-07-2023 End: 76-05-3757dzqoowymckNjyhyidbk L ClarkFacility:FTMCStart: 09-07-2023 End: 03-24-2341Plzaeut encounter procedureYa Thornton [facility] Start: 08-08-2023 End: 79-32-7586uoxormwcstSeoetptsl L ClarkFacility:[facility] PCStart: 08-08-2023 End: 72-30-8732Nsuluej encounter Rosina Thornton [phone]-FiyayMetrohealth [facility] Start: 07-12-2023 End: 94-32-4874gmxtwnjpooBUMWOOGP E PERRYFacility:EU ueStart: 07-12-2023 End: 11-42-6185Elibkam encounter procedureJENNIFER E SUKH [facility]ue start: 05-16-2023 End: 62-12-8051styadnipfsHdwosmlkx L ClarkFacility:FTMCStart: 05-16-2023 End: 81-33-5878gowyscagacDtgldjezq L ClarkFacility:[place] PCStart: 04-01-2023 ambulatoryYa ThorntonFacility:EU BellevueStart: 03-24-2023 End: 47-87-7879wffjksskpxTlkzyblxj L ClarkFacility:FTMCStart: 03-24-2023 End: 35-55-1676Njrkrpu encounter procedureYa Thornton [facility] Start: 03-22-2023 End: 70-29-9748oellutksmqKgjwrhfvy L ClarkFacility:FTMCStart: 03-22-2023 End: 76-75-7807Btcdkgu encounter procedureYa Thornton [facility] Start: 03-09-2023 End: 69-46-0683Bzh Drop offYa Thornton [facility] start: 03-09-2023 End: 10-12-6382njirlgytsyLwaxfizid L ClarkFacility:FTMCStart: 03-09-2023 End: 05-91-4124Ttgejwc encounter procedureYa Thornton [phone]-XpeoqMetrohealth [facility] Start: 02-21-2023 End: 28-52-9983Hrt Drop offYa Thornton [facility] Start: 02-21-2023 End: 32-61-5636fhtzfjgwggZtyefkugc L ClarkFacility:FTMCStart: 02-21-2023 End: 39-01-6995Nzmholj encounter procedureYa Thornton [phone]-GzdchMetrohealth [facility] Start: 11-30-2022 End: 14-34-4963ydtxrtpgxhNbqi A SteinmetzFacility:[facility] DHStart: 11-30-2022 End: 03-12-2480Rrqdcgo encounter procedureDaniel Gray [phone]-BpkzqMetrohealth [facility] Start: 87-58-3313ktkfrwaxkxPoytrbbme Clark Facility:[facility] DHStart: 11-11-2022 End: 24-37-2083pvyrziccloMaffflxni L ClarkFacility:[place] PCStart: 11-11-2022 End: 71-22-2530Jlmcjlv encounter procedureYa Thornton [phone]-GtgyvMetrohealth [facility] Start: 10-08-2022 End: 28-82-0295rvybvdpsltEzxewcxeo L ClarkFacility:MCStart: 10-08-2022 End: 29-21-2530uhsebngpmyVfamvqerg L ClarkFacility:[place] PCStart: 05-03-2022 End: 51-03-8773Hmnijzm encounter procedureRitu Desai [phone]-CvnjfMetrohealth [facility] Start: 10-19-2021 End: 80-69-4351ljrifzeczzJM SANTOSH FAZIOFacility:Q3Plpef: 10-17-2021 End: 14-20-9363eseudjqvdyXF SANTOSH FAZIOFacility:E6Zfmjr: 17-28-5335tlgrwktzbvFD SANTOSH FAZIOFacility:W4Hkzdp: 07-13-2021 End: 44-87-4898jgowesmnjdOS DOCTOR MISCFacility:E9Vnood: 05-06-2021 End: 12-46-2153biwcjroloxZM ERASMO KARASIKFacility:U5Xgece: 02-24-2021 End: 88-63-6147mwbucyvptlBY SANTOSH FAZIOFacility:W7Vgzdx: 01-13-2021 End: 82-22-8657ikzxqikvlwEO SANTOSH FAZIOFacility:Y5Mxqrc: 12-09-2020 End: 68-38-2861dcrpmbvssmOY SANTOSH FAZIOFacility:M4Tqpsu: 12-02-2020 End: 92-31-1421mmhrxsppqsBQ SANTOSH FAZIOFacility:H1 Procedures DateProcedureProcedure DetailPerforming ClinicianStart: 19-10-2315Qbybu dip stick/tablet rgnt non-auto w/o micrscpCorey Joanna DO Work Phone: Start: 46-16-1201Qbdgr dip stick/tablet rgnt non-auto w/o micrscpAmy Brea HAYS Work Phone: Start: 10-38-8432Bfafv dip stick/tablet rgnt non-auto w/o micrscpCorey Joanna DO Work Phone: Start: 86-67-4423UZXKLAZ TOLERANCE 3 HOURAmy Brea HAYS Work Phone: Start: 53-97-0256MCH CBC WITH AUTO DIFFAmy Brea HAYS Work Phone: Start: 99-97-6862Ebcqq dip stick/tablet rgnt non-auto w/o micrscpAmy Brea HAYS Work Phone: Start: 61-13-2515Udyfv dip stick/tablet rgnt non-auto w/o micrscpCorey Joanna DO Work Phone: Start: 77-35-3601YSW THYROID STIM HORMONECorey Joanna DO Work Phone: Start: 10-14-8721HHR, SERUM, OPEN SPINA BIFIDAAsusanne HAYS Work Phone: Start: 04-96-3994Sgzby dip stick/tablet rgnt non-auto w/o micrscpCorey Joanna DO Work Phone: Start: 47-19-4723INTNIKF 1 HOURCorey Joanna DO Work Phone: Start: 63-50-9076HHD MISCELLANEOUS TESTCorey Joanna DO Work Phone: Start: 37-07-1285UFL MISCELLANEOUS TESTCorey Joanna DO Work Phone: Start: 31-13-7943Ctqpbnuibarry Campos MD Work Phone: Start: 94-94-3656PZX W Auto Differential panel - Blood Santosh R Joanna DO Work Phone: Start: 57-48-8526Xxny scrn 1+ class nonchromoNot In System Ref ProvStart: 45-26-9112Usfftgxuhw glycosylated h1gYrlrr R Joanna DO Work Phone: Start: 36-46-7679Aftiutouz c antibodyNot In System Ref ProvStart: 48-57-1042BOE 1&2 AB/AG SCREEN (P24 AG)Not In System Ref ProvStart: 97-67-2344Avqt ia hepatitis b surface antigenNot In System Ref ProvStart: 50-63-5992ABKDFZXZ TOTAL(UNKNOWN SYPHILIS STATUS)Not In System Ref ProvStart: 89-12-7203KJUS AND SCREENNot In System Ref ProvStart: 22-47-3336AZA CBC WITH AUTO DIFFCorey JoannaMediasurface Work Phone: Start: 08-17-2024 End: 71-28-7993Revkh dip stick/tablet rgnt non-auto w/o micrscpCorey JoannaMediasurface Work Phone: Start: 46-65-4941RZS,APTIMA HPV,AGE GDLNCorey JoannaMediasurface Work Phone: Start: 02-55-9853Ndlzl depression screening assessment Jacklyn Campos MD Work Phone: None (qualifier value)Ritu Desai Plan of Treatment DateCare ActivityDetailAuthorStart: 58-22-6699CIvO,Tdap and Td Vaccines (8 - Td or Tdap)DTaP,Tdap and Td Vaccines (8 - Td or Tdap)[facility] YoungstownKyma Medical Technologies SystemStart: 11-06-2025 End: 77-78-3787NH MFM with or without consultUS MFM with or without consult Imaging Routine 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 trimester History of prior with IUGR History of premature rupture of membranes Expected: 11/06/2025 (Approximate), Expires: 11/06/2025[facility] Work Phone: comment on above:Expected: 11/06/2025 (Approximate), Expires: 11/06/2025Start: 60-71-4271Vwspu BMI ScreeningAdult BMI Screening [facility] SystemStart: 22-34-4782Wbqpxqk ScreeningTobacco Screening [facility] SystemStart: 02-13-2025 End: 18-46-5221Jjproiy encounter lapwysztc50/26/2025 10:50 AM EST Routine [facility] [address] [place] [id number] Santosh Marshall DO [address] [place] [address] OBGYNStart: 02-04-2025 End: 99-56-4210Xntxbejxisjp / ancillary services bnovlflewk77/17/2025 8:00 AM EST Ancillary Procedure [facility] [address] [address] OBGYNStart: 01-28-2025 End: 61-67-9885VS biophysical profile w non stress testUS biophysical profile w non stress test Imaging Routine Thyroid disease History of prior with IUGR Hypothyroidism, unspecified type Expected: 01/28/2025 (Approximate), Expires: 07/28/2025[facility] Work Phone: comment on above:Expected: 01/28/2025 (Approximate), Expires: 07/28/2025Start: 01-28-2025 End: 64-73-3090BI for pregnancyUS OB follow up transabdominal approach Imaging Routine Thyroid disease History of prior with IUGR Hypothyroidism, unspecified type Expected: 01/28/2025, Expires: 05/28/2025NOMS HealthcareComment on above:Expected: 01/28/2025, Expires: 05/28/2025Start: 01-28-2025 End: 25-97-0850Dnpypap encounter lehhumgyo24/10/2025 8:30 AM EST Routine [facility] [address] [place], [id number] Santosh Marshall, DO [address] [place] [address] OBGYNComment on above:ArrivedStart: 01-14-2025 End: 66-97-3990Mntqcbw encounter procedureNOMS Augustina OBGYNComment on above: ArrivedStart: 01-01-2025 End: 58-30-1431Gzatxwz encounter procedureNOMS BCP OBStart: 12-31-2024 End: 49-57-3154Bhshelq encounter xdeipeici63/13/2025 11:00 AM EDT Routine [facility] [address] [place] [address] Santosh Marshall, DO [address] [place] [address] OBGYNStart: 12-31-2024 End: 39-04-0958Trwiyqybiitm / ancillary services dqtseyvxhp88/13/2025 10:30 AM EDT Ancillary Procedure [facility] [address] [address] [phone] Augustina OBGYNStart: 12-17-2024 End: 03-73-3699Ozucwwk encounter sinnildnt80/29/2025 3:00 PM EDT Office Visit [facility] [address] [place] [address] Santosh Marshall, [address] [place] [address] NOMS BCP OBStart: 12-11-2024 End: 30-78-8084Hjtxmnw encounter csilzdprt63/23/2025 2:15 PM EDT Appointment [facility] - Ultrasound [address] [place] [id number] [phone] Hospital [facility] - UltrasoundStart: 12-10-2024 End: 06-57-5260CTB panel - Blood by Automated countCBC Lab Routine Diabetes mellitus screening Expected: 12/10/2024 (Approximate), Expires: 12/10/2025[facility] Work Phone: comment on above:Expected: 12/10/2024 (Approximate), Expires: 12/10/2025Start: 12-10-2024 End: 36-96-7522Fuwyfzoaury of glucose 1 hour after glucose challenge for glucose tolerance testGlucose tolerance, 1 hour Lab Routine Diabetes mellitus screening Expected: 12/10/2024 (Approximate), Expires: 12/10/2025[facility] HealthcareComment on above:Expected: 12/10/2024 (Approximate), Expires: 12/10/2025Start: 12-10-2024 End: 57-62-6453HN for pregnancyUS OB follow up transabdominal approach Imaging Routine Size of fetus inconsistent with dates in second trimester ([facility]) Expected: 12/10/2024, Expires: 04/11/2025[facility] HealthcareComment on above: Expected: 12/10/2024, Expires: 04/11/2025Start: 12-10-2024 End: 80-04-4162Xiabpmm encounter procedureNOMS Trail OBGYNComment on above: ArrivedStart: 11-27-2024 End: 53-22-1923Itlwqpr encounter ccezrevyo04/09/2025 3:15 PM EDT Appointment [facility] - Ultrasound [address] [place] [id number] [phone] Dublin [facility] Hospital - UltrasoundStart: 11-20-2024 End: 00-54-2867Niranap encounter ywifumavx70/02/2025 3:45 PM EDT Appointment [facility] Imaging [address] [place] [address] [phone] Health [facility] US ImagingStart: 11-19-2024 Influenza vaccinationInfluenza VaccineECU Health Edgecombe Hospitaltart: 11-12-2024 End: 59-69-6762Egdlhej encounter procedureUMESH [place] OBGYNComment on above: ArrivedStart: 11-05-2024 End: 62-20-6641Rukxyxb encounter procedureMount Carmel Health System US ImagingStart: 10-21-2024 End: 10-54-0704VU MFM with or without consultUS [facility] with or without consult Imaging Routine Thyroid disease affecting History of priorpregnancy with IUGR Expected: 10/21/2024 (Approximate), Expires: 09/20/2025 [facility] Work Phone: comment on above:Expected: 10/21/2024 (Approximate), Expires: 09/20/2025Start: 10-15-2024 End: 74-45-0971Zhkxm fetoprotein, maternalAlpha fetoprotein, maternal Lab Routine 17 weeks gestation of ([facility]) Expected: 10/15/2024 (Approximate), Expires: 12/16/2024[facility] Work Phone: comment on above:Expected: 10/15/2024 (Approximate), Expires: 12/16/2024Start: 10-15-2024 End: 44-60-3646Melhnan encounter procedureNOMS CASSANDRA OBComment on above:Arrived Start: 09-17-2024 End: 00-80-8018Qxqmcndjssa of glucose 1 hour after glucose challenge for glucose tolerance testGlucose tolerance, 1 hour Lab Routine Diabetes mellitus screening Expected: 09/17/2024 (Approximate), Expires: 09/17/2025[facility] Work Phone: comment on above:Expected: 09/17/2024 (Approximate), Expires: 09/17/2025Start: 09-17-2024 End: 71-08-8135Pkquxfp encounter mqgejolih93/30/2025 10:50 AM EDT Routine [facility] [address] [place] [phone] Santosh Marshall, DO [address] [place] [address] NOMS BCP OBStart: 08-17-2024 End: 46-84-6758PKZ/RhABO/Rh Lab Routine Missed menses , unspecified gestational age Expected: 08/17/2024 (Approximate), Expires: 08/17/2025[facility] HealthcareComment on above:Expected: 08/17/2024 (Approximate), Expires: 08/17/2025Start: 08-17-2024 End: 18-84-2323Bgkga type and Indirect antibody screen panel - BloodType and screen Lab Routine Missed menses , unspecified gestational age Expected: 08/17/2024 (Approximate), Expires: 08/17/2025[facility] HealthcareComment on above:Expected: 08/17/2024 (Approximate), Expires: 08/17/2025Start: 08-17-2024 End: 07-46-3429Ixous of abuse panel - Urine by Screen methodRapid drug screen, urine Lab Routine , unspecified gestational age Encounter for supervision of normal first in first trimester Expected: 08/17/2024 (Approximate), Expires: 08/17/2025[facility] HealthcareComment on above:Expected: 08/17/2024 (Approximate), Expires: 08/17/2025Start: 08-09-2024 End: 47-25-0327NX Pelvis transvaginalUS OB transvaginal Imaging Routine Missed menses Expected: 08/09/2024, Expires: 11/09/2024[facility] Work Phone: comment on above:Expected: 08/09/2024, Expires: 11/09/2024Start: 01-42-8984HWYWW-19 ( season)COVID-19 ( season)[facility]: 72-17-4114HVB (#1)FLU (#1)[facility]: 67-73-3698Hhrflrmuna ScreeningDepression Screening [facility] SystemStart: 85-61-9488rrtspkgnkjHvxxpdrptyNunjmvep:N6Oopvf: 04-84-4553Uclvkzaiigf observation [Identifier] in Cervix by Cyto stainPap Smear [facility] Hospitaltart: 32-78-4049Ogasahgzp for malignant neoplasm of cervixPap SmearECU Health [facility] Hospitaltart: 59-13-0797Onmuzqrdd B (1 of 3 - 19+ 3-dose series)Hepatitis B (1 of 3 - 19+ 3-dose series)[facility] Start: 24-37-1154Qsmqb BMI ScreeningAdult [facility] ScreeningC[facility] Start: 95-06-8152MwuZ (1 of 2 - MenB 2-Dose Series Bexsero)MenB (1 of 2 - MenB 2-Dose Series Bexsero)[facility]: 81-59-8617AUR (1 - 3-dose series)HPV (1 - 3-dose series)[facility]: 2011 Varicella (1 of 2 - 13+ 2-dose series)Varicella (1 of 2 - 13+ 2-dose series) [facility]: 97-41-9258Taojakq ScreeningTobacco Screening [facility]: 97-46-6991Nlisvvx Diphtheria and Pertussis Vaccines (1 - Tdap)Tetanus Diphtheria and Pertussis Vaccines (1 - Tdap)[facility]: 58-30-5066FPN (1 of 1 - Standard series)MMR (1 of 1 - Standard series)[facility] Urine by Culture Urine culture Microbiology Routine Missed menses Ordered: 08/17/2024[facility] HealthcareComment on above:Ordered: 08/17/2024BC W Auto Differential panel - BloodCBC and differential Lab Routine Missed menses , unspecified gestational age Ordered: 08/17/2024[facility] HealthcareComment on above:Ordered: 08/17/2024HLAMYDIA TRACHOMATIS (GENITO/STI)CHLAMYDIA TRACHOMATIS (GENITO/STI) Lab Routine STD exposure Ordered: 11/12/2024[facility] HealthcareComment on above: Ordered: 11/12/2024ytology Cervical or vaginal smear or scraping studyPap Smear Pathology and Cytology Routine Well woman exam with routine gynecological exam Ordered: 12/12/2023[facility] Healthcare Work Phone: comment on above:Ordered: 12/12/2023 End: 33-28-9936RXT Extraction and [facility] Work Phone: Comment on above:1 Occurrences starting 05/14/2024 until 05/14/2024, 1 completedHemoglobin A1c/Hemoglobin.total in BloodHemoglobin A1c Lab Routine Missed menses , unspecified gestational age Ordered: 08/17/2024[facility] HealthcareComment on above:Ordered: 08/17/2024Hepatitis B virus surface Ag [Presence] in Serum or Plasma by ImmunoassayHepatitis B surface antigen Lab Routine Missed menses , unspecified gestational age Ordered : 08/17/2024[facility] HealthcareComment on above:Ordered: 08/17/2024Hepatitis C virus Ab [Presence] in Serum or Plasma by ImmunoassayHepatitis C antibody Lab Routine Missed menses , unspecified gestational age Ordered: 08/17/2024[facility] HealthcareComment on above:Ordered: 08/17/2024HIV-1/HIV-2 antigen/antibody combination immunoassayHIV-1 and HIV-2 antibodies Lab Routine Missed menses , unspecified gestational age Ordered: 08/17/2024[facility] HealthcareComment on above:Ordered: 08/17/2024Neisseria gonorrhoeae DNA [Presence] in Unspecified specimen by FRANSISCO with probe detectionNeisseria gonorrhea DNA probe, direct Lab Routine STD exposure Ordered: 11/12/2024[facility] HealthcareComment on above:Ordered: 11/12/2024Reagin Ab [Presence] in Serum by RPRRPR Lab Routine Missed menses , unspecified gestational age Ordered: 08/17/2024[facility] HealthcareComment on above:Ordered: 08/17/2024Rubella antibody, IgGRubella antibody, IgG Lab Routine Missed menses , unspecified gestational age Ordered: 08/17/2024 [facility] HealthcareComment on above:Ordered: 08/17/2024SURESWAB(R) ADVANCED VAGINITIS PLUS, TMASURESWAB(R) ADVANCED VAGINITIS PLUS, TMA Pathology and Cytology Routine Vaginal discharge Ordered: 11/12/2024[facility] Healthcare Work Phone: comment on above:Ordered: 11/12/2024Thyrotropin [Units/volume] in Serum or PlasmaTSH Lab Routine Missed menses , unspecified gestational age Encounter for supervision of normal first in first trimester Ordered: 08/17/2024[facility] HealthcareComment on above:Ordered: 08/17/2024 End: 51-63-4763Nfbhhvfcjav [Units/volume] in Serum or PlasmaTSH Lab Routine Hypothyroidism, unspecified type 9 Occurrences starting 11/12/2024 until 11/12/2025[facility] Work Phone: comment on above:9 Occurrences starting 11/12/2024 until 11/12/2025US Pelvis transvaginalUS OB transvaginal Imaging Routine Missed menses 08/17/2024 9:27 AM [facility] Immunizations Immunization DateImmunizationNotesCare VlydbfgrRtmnhlky51-99-5711nujcych toxoid, reduced diphtheria toxoid, and acellular pertussis vaccine, adsorbedNancyzabemonty Thornton [phone]-BpjytTrumbull [facility] Hospital08-02-2016 meningococcal B vaccine, fully recombinantNancyzabeth Norberto [phone]-TvjxyTrumbull [facility] Hospital06-27-2016 meningococcal ACWY vaccine, unspecified formulationNancyzabemonty Thornton [phone]-SzsvuTrumbull Memorial Hospital06-27-2016 meningococcal B vaccine, fully recombinantNancyzabeth Norberto [phone]-FqsewTrumbull Memorial Hospital04-04-2011 meningococcal ACWY vaccine, unspecified formulationNancyzabeth Norberto [phone]-ZwawmTrumbull Memorial Hospital04-04-2011 tetanus toxoid, reduced diphtheria toxoid, and acellular pertussis vaccine, adsorbedElizabeth Norberto [phone]-LldvdTrumbull Memorial Hospital11-12-2009 influenza virus vaccine, unspecified formulationJacklyn Campos MD Work Phone: [phone] [place], [place] 4907407-28-2004DTaP, unspecified formulationElizabeth Norberto [phone]-XzzbmTrumbull Memorial Hospital07-28-2004 measles, mumps and rubella virus vaccineElizadaniel Thornton [phone]-ItngkTrumbull Memorial Hospital07-28-2004 poliovirus vaccine, unspecified formulationElisampson Thornton [phone]-Kxonz[address] [place], [place] 6227411-15-2000DTaP, unspecified formulationElizadaniel Thornton [phone]-Ggqlw[address] [place], [place] 6227411-08-1999 measles, mumps and rubella virus vaccineElizabemonty Thornton [phone]-Eoyiy[address] [place], [place] 6227411-08-1999 varicella virus vaccineElizadaniel Thornton [phone]-Buxgk[address] [place], [place] 6227407-23-1999DTaP, unspecified formulationElisampson Thornton [phone]-Odixe[address] [place] [address] Primary Hscw92-94-7328VUhN, unspecified formulationElizadaniel Thornton [phone]-Dwnuj[address] [place] [address] Primary Zklt15-45-9391BTaP, unspecified formulationYa Thornton [phone]-Wtmbn[address] [place], [place] 6227410-31-1998 hepatitis B vaccine, pediatric or pediatric/adolescent dosageElizadaniel Thornton [phone]-BkyvnMetro[facility] Primary CareNEGATED: Highlighted row has not occurred!62-24-8081vbcxfcnxq virus vaccine, unspecified formulationDaniel Gray [phone]-GcrfaMetrohealth [facility] Digestive HealthNEGATED: Highlighted row has not occurred!96-12-4767rwkgfyjqb virus vaccine, unspecified formulationRitu Desai [phone]-IdeaqMetrohealth [facility] Primary Care Payers DatePayer CategoryPayerPolicy [id number] [facility] [id number] - [id number] [id number] Health [id number] 2023Medicaid [facility] MEDICA[facility] [id number] Care Other (unspecified)[employer] [id number] 2.840.1.549777.3.579.[id number] 2.160.1.312828.3.57[id number] 2.0.1.179619.3.579.2.49719-28-9621Itsfgkx0973100 2.840.1.974757.3.579.2.92647-19-9404Cwyvczs1124281 2.840.1.230890.3.579.2.49225-21-7280Xigawvb3067266 2.0.1.925409.3.579.2.16236-89-6040Gixpqki5629669 2.0.1.302473.3.579.2.96889-88-2739Tzcjrap1879045 2.840.1.405160.3.579.2.91960-58-6443Cfoupdi0920868 2.840.1.249401.3.579.2.07165-30-0454Dgmujtd1223315 2.840.1.040632.3.579.2.82642-07-8013Oukdqka93017069 2.16840.1.039285.3.579.2.99207-15-0162Ofabjqr76934130 2.840.1.436234.3.579.2.04285-52-0571Mihwqbg36226750 2.16840.1.161832.3.579.2.21442-86-3717Sttracb51506183 2.16840.1.076191.3.579.2.29910-77-5339Rtbpuku01671536 2.16840.1.643192.3.579.2.15053-20-2500Ygxkbly81143659 2.16840.1.889420.3.579.2.98775-64-2651Xklisep54309087 2.16840.1.201724.3.579.2.73005-68-4912Njacdus65639345 2..1.895184.3.579.2.66647-93-2075Qvcnste14406359 2.840.1.480700.3.579.2.70944-68-1844Zkvzoxb46894488 2.840.1.313422.3.579.2.65778-15-3275Yadakvt92682518 2.840.1.580797.3.579.2.80838-04-2134Jqkyiwp92876757 2..1.521964.3.579.2.77588-43-4622Sihyoaj61682518 2.16840.1.786213.3.579.2.37966-56-7364Tbzaqua03129527 2.16840.1.533816.3.579.2.47279-58-5373Cohqfsq62039301 2.16840.1.777226.3.579.2.71885-77-2614Zktmptj41869216 2.840.1.148348.3.579.2.05893-16-8035Myebmcc530309677 2.16.840.1.793395.3.579.2.54534-40-1457Lwdrzeg53184811 2.16.840.1.881750.3.579.2.65596-83-7392Qmsolks70652245 2.16.840.1.635705.3.579.2.98370-58-4019Dhcsjyv50859471 2.16.840.1.720643.3.579.2.38777-81-3445Ekuodgh05584282 2.16.840.1.820291.3.579.2.00262-08-4320Nquzwbq43930938 2.16.840.1.047804.3.579.2.74118-11-2119Febbzzp64847850 2.16.840.1.573729.3.579.2.43934-31-7229Jpnclia05382364 2.16.840.1.382769.3.579.2.78693-38-5205Girgjdz528606912 2.16840.1.866704.3.579.2.527989-49-5520Cmkdfla766902012 2.16.840.1.228758.3.579.2.480501-22-3039Xofotff470001824 2.16.840.1.659326.3.579.2.720511-07-5753Hngvnlf545620208 2.16.840.1.712284.3.579.2.498836-30-0887Mvompac914659796 2.16.840.1.668478.3.579.2.723336-49-8967Nzqwmtz58029087 2.16.840.1.237013.3.579.2.921330-72-0406Bbrkwpq84627717 2.16.840.1.366964.3.579.2.145586-84-6565Bwthjtm65643217 2.16.840.1.062405.3.579.2.610960-74-8517Unfmske30126599 2.16.840.1.409563.3.579.2.714283-43-7364Rsiwfwa40123585 2.16.840.1.289243.3.579.2.553825-84-1246Rxwpwgj41431459 2.16.840.1.862732.3.579.2.750206-30-0218Yvckqqb96872115 2.16.840.1.324720.3.579.2.011279-71-3429Dnhtqgl14111283 2.16.840.1.155515.3.579.2.414580-45-6430Kztwcos1990822 2.16.840.1.789099.3.579.2.672060-45-0710Vzzswaf3609902 2.16.840.1.296257.3.579.2.324712-21-2341Dtci-cuj83-01-6939Nxdcyfj298152355790 03-10-8035Reeunyx88423572345549080Luxzxee7492033849[id number] 2.0.1.759690.3.579.2.977Ivwbxwh638874249383 Social History DateTypeDetailFacilityStart: 05-03-2022 End: 35-70-1804Obpulzh smoking statusNever smoked tobacco (finding)[facility] Primary CareStart: 54-37-8658Gahcqeo smoking statusNeverCleveland Clinic [facility] Primary CareStart: 07-12-2023 End: 66-14-1256Jqk Assigned At BirthFeTriHealth Bethesda North Hospitaltart: 12-12-2023 End: 83-26-9411Riyfueqog beverage intakeCurrent drinker of alcohol (finding)[facility] CenterStart: 07-12-2023 End: 97-97-9806Zwojqyq of Social functionNOMS HealthcareStart: 30-08-6842Lrgyhvg Commentoccasional alcohol useNOMS HealthcareStart: 70-01-0995Lpd assigned at birthNot on fileCameron Regional Medical CenterTobacco smoking status NHISTobacco smoking consumption unknownGrant Hospitalexual OrientationAultman Alliance [facility] Start: 07-02-2009 End: 31-28-5181DflZdprtv (finding)[facility] Cent[facility]art: 06-30-2024 PregnancyNOMS HealthcareStart: 84-86-9278Dourlqv use and exposureSmokeless tobacco non-userCleveland Clinic Lutheran Hospital SystemStart: 09-24-2024 End: 31-35-9247Qngmqgbrg beverage intakeEx-drinker (finding)[facility] SystemThe thought of harming myself has occurred to [facility] Medical Equipment Procedure CodeEquipment CodeEquipment Original TextEquipment IdentifierDates Glucose Test Strips, See Instructions, 1 EA, 3, Glucose Test Strips, [employer] #[employer], Supply, 166, cm, 10/08/22 15:10:00 EDT, Height/Length Dosing, 57.8, kg, 10/08/22 15:10:00 EDT, Weight DosingStart: 33-82-0997Ofxvzud, See Instructions, 100 lancet(s), 3, Lancets, [employer] #37, Supply, 166, cm, 10/08/22 15:10:00 EDT, Height/Length Dosing, 57.8, kg, 10/08/22 15:10:00 EDT, Weight DosingStart: 34-51-9601Yzomgsb Test Strips, See Instructions, 1 EA, 3, Glucose Test Strips, [employer] #37, Supply, 166, cm, 10/08/22 15:10:00 EDT, Height/Length Dosing, 57.8, kg, 10/08/22 15:10:00 EDT, Weight DosingStart: 84-09-7893Shjlcxo, See Instructions, 100 lancet(s), 3, Lancets, [email or web address] #37, Supply, 166, cm, 10/08/22 15:10:00 EDT, Height/Length Dosing, 57.8, kg, 10/08/22 15:10:00 EDT, Weight DosingStart: 98-93-9883[place] Test Strips, See Instructions, 1 EA, 3, Glucose Test Strips, [email or web address] [facility], Supply, 166, cm, 10/08/22 15:10:00 EDT, Height/Length Dosing, 57.8, kg, 10/08/22 15:10:00 EDT, Weight DosingStart: 95-66-8142Xkbvvmb, See Instructions, 100 lancet(s), 3, Lancets, [employer] #37, Supply, 166, cm, 10/08/22 15:10:00 EDT, Height/Length Dosing, 57.8, kg, 10/08/22 15:10:00 EDT, Weight DosingStart: 57-61-5054Gmedxmv Test Strips, See Instructions, 1 EA, 3, Glucose Test Strips, [email or web address] #37, Supply, 166, cm, 10/08/22 15:10:00 EDT, Height/Length Dosing, 57.8, kg, 10/08/22 15:10:00 EDT, Weight DosingStart: 75-06-5920Iwozvlj, See Instructions, 100 lancet(s), 3, Lancets, [employer] #37, Supply, 166, cm, 10/08/22 15:10:00 EDT, Height/Length Dosing, 57.8, kg, 10/08/22 15:10:00 EDT, Weight DosingStart: 71-21-5195Ljffaiz Test Strips, See Instructions, 1 EA, 3, Glucose Test Strips, [email or web address] #[employer], Supply, 166, cm, 10/08/22 15:10:00 EDT, Height/Length Dosing, 57.8, kg, 10/08/22 15:10:00 EDT, Weight DosingStart: 88-77-3185Kjnnrqi, See Instructions, 100 lancet(s), 3, Lancets, [employer] #37, Supply, 166, cm, 10/08/22 15:10:00 EDT, Height/Length Dosing, 57.8, kg, 10/08/22 15:10:00 EDT, Weight DosingStart: 10-37-3187Dsqhhsr Test Strips, See Instructions, 1 EA, 3, Glucose Test Strips, [employer] #37, Supply, 166, cm, 10/08/22 15:10:00 EDT, Height/Length Dosing, 57.8, kg, 10/08/22 15:10:00 EDT, Weight DosingStart: 12-84-3774Ldgcrhz, See Instructions, 100 lancet(s), 3, Lancets, [employer] #37, Supply, 166, cm, 10/08/22 15:10:00 EDT, Height/Length Dosing, 57.8, kg, 10/08/22 15:10:00 EDT, Weight DosingStart: 66-71-0913Igracrc Test Strips, See Instructions, 1 EA, 3, Glucose Test Strips, [employer] #37, Supply, 166, cm, 10/08/22 15:10:00 EDT, Height/Length Dosing, 57.8, kg, 10/08/22 15:10:00 EDT, Weight DosingStart: 74-68-0384Usjodsa, See Instructions, 100 lancet(s), 3, Lancets, [employer] #37, Supply, 166, cm, 10/08/22 15:10:00 EDT, Height/Length Dosing, 57.8, kg, 10/08/22 15:10:00 EDT, Weight DosingStart: 03-47-5980Norehfb Test Strips, See Instructions, 1 EA, 3, Glucose Test Strips, [email or web address] #[employer], Supply, 166, cm, 10/08/22 15:10:00 EDT, Height/Length Dosing, 57.8, kg, 10/08/22 15:10:00 EDT, Weight DosingStart: 20-90-5757Qjddgjg, See Instructions, 100 lancet(s), 3, Lancets, [employer] #37, Supply, 166, cm, 10/08/22 15:10:00 EDT, Height/Length Dosing, 57.8, kg, 10/08/22 15:10:00 EDT, Weight DosingStart: 33-02-2005Jpyaxnr Test Strips, See Instructions, 1 EA, 3, Glucose Test Strips, [employer] #37, Supply, 166, cm, 10/08/22 15:10:00 EDT, Height/Length Dosing, 57.8, kg, 10/08/22 15:10:00 EDT, Weight DosingStart: 63-52-2512Ygvcrpx, See Instructions, 100 lancet(s), 3, Lancets, [employer] #37, Supply, 166, cm, 10/08/22 15:10:00 EDT, Height/Length Dosing, 57.8, kg, 10/08/22 15:10:00 EDT, Weight DosingStart: 80-09-1941Dgbsuss Test Strips, See Instructions, 1 EA, 3, Glucose Test Strips, [employer] #37, Supply, 166, cm, 10/08/22 15:10:00 EDT, Height/Length Dosing, 57.8, kg, 10/08/22 15:10:00 EDT, Weight DosingStart: 53-44-6485Jyormvo, See Instructions, 100 lancet(s), 3, Lancets, [employer] #37, Supply, 166, cm, 10/08/22 15:10:00 EDT, Height/Length Dosing, 57.8, kg, 10/08/22 15:10:00 EDT, Weight DosingStart: 92-62-9200Umruhno Test Strips, See Instructions, 1 EA, 3, Glucose Test Strips, [employer] #37, Supply, 166, cm, 10/08/22 15:10:00 EDT, Height/Length Dosing, 57.8, kg, 10/08/22 15:10:00 EDT, Weight DosingStart: 44-72-0590Rnvqxoe, See Instructions, 100 lancet(s), 3, Lancets, [employer] #37, Supply, 166, cm, 10/08/22 15:10:00 EDT, Height/Length Dosing, 57.8, kg, 10/08/22 15:10:00 EDT, Weight DosingStart: 28-66-4016O[place]ujo Test Strips, See Instructions, 1 EA, 3, Glucose Test Strips, [employer] #37, Supply, 166, cm, 10/08/22 15:10:00 EDT, Height/Length Dosing, 57.8, kg, 10/08/22 15:10:00 EDT, Weight DosingStart: 93-97-0322Pptxuol, See Instructions, 100 lancet(s), 3, Lancets, [employer] #37, Supply, 166, cm, 10/08/22 15:10:00 EDT, Height/Length Dosing, 57.8, kg, 10/08/22 15:10:00 EDT, Weight DosingStart: 05-30-0911Rge daily as directed & as neededStart: 03-26-2021 Functional Status LhsrFgwifkmnicOozxtiUkyshcgm27-36-8203Tugfbcjnmw StatusN/[facility] Primary Wgaw23-81-8300Efdupbufft StatusN/[facility] Primary Gkmq51-32-4552Tkivxwuvvi StatusN/[facility] Primary Nagc11-06-9135Anmjavtvlp StatusN/[facility] Digestive Health 06-08-7032Mkwukqcokv StatusN/[facility] Primary Rvva40-16-7337 Functional StatusN/[facility] Primary Care Clinical Notes 05-03-2022 to 01-28-2025 Note Date & LfyzIyraOspluzzm22-68-6785 History of Present illness Narrative* Abril Stone [...] nursing note reviewed. Exam conducted with a production coordinator present. Vitals: Estimated body mass index is 26.29 kg/m as calculated from the following: Height as of 11/29/22: 5' 5 . Weight as of this encounter: 158 lb. BP: 124/70 Patient's last menstrual period was 06/16/2024. Assessment/Plan ICD-10-CM 1. Third trimester ([facility]) Z34.93 POCT urinalysis dipstick manually resulted 2. 32 weeks gestation of ([facility]) Z3A.32 3. Thyroid disease E07.9 4. [...] of: Santosh Marshall DO documented in this encounterCameron Regional Medical CenterDomylzmowi65-67-9320 History of Present illness Narrative* Abril Stone [...] nursing note reviewed. Exam conducted with a production coordinator present. Vitals: Estimated body mass index is 26.71 kg/m as calculated from the following: Height as of 23: 5' 5 . Weight as of this encounter: 160 lb 8 oz. BP: 126/72 Patient's last menstrual period was 06/16/2024. Assessment/Plan ICD-10-CM 1. Third trimester ([facility]) Z34.93 POCT urinalysis dipstick manually resulted 2. 30 weeks gestation of ([facility]) Z3A.30 Return OB: Patient presents today [...] of: Santosh Marshall DO documented in this encounterCameron Regional Medical CenterMagiciffne43-13-7630 History of Present illness Narrative* Daiana Villarreal [...] nursing note reviewed. Exam conducted with a production coordinator present. Vitals: Estimated body mass index is 25.38 kg/m as calculated from the following: Height as of 11/29/22: 5' 5 . Weight as of this encounter: 152 lb 8 oz. BP: 106/68 Patient's last menstrual period was 06/16/2024. ASSESSMENT & PLAN ICD-10-CM 1. Third trimester ([facility]) Z34.93 POCT urinalysis dipstick manually resulted 2. 28 weeks gestation of ([facility]) Z3A.28 Patient presents today for a routine obstetrics appointment. Patient is currently 28w2d with a Estimated Date of Delivery: 03/23/25. Patient had growth scan done prior to today's appointment. Patient will start NST/BPP at 32 weeks. Patient to return to clinic in 2 weeks. Documented by Daiana Villarreal LPN on behalf of: Santosh Marshall DO documented in this encounterCameron Regional Medical CenterKjneuqbssl82-15-4487 History of Present illness Narrative* LIS Man [...] ASSESSMENT & PLAN ICD-10-CM 1. Second trimester ([facility]) Z34.92 POCT urinalysis dipstick manually resulted 2. 25 weeks gestation of ([facility]) Z3A.25 3. Diabetes mellitus screening Z13.1 [...] of: LIS Man documented in this encounterNOMS Ngtobqlhst52-39-1365 History of Present illness Narrative* Abril Stone, [...] nursing note reviewed. Exam conducted with a production coordinator present. Vitals: Estimated body mass index is 23.15 kg/m as calculated from the following: Height as of 11/29/22: 5' 5 . Weight as of this encounter: 139 lb 1.9 oz. BP: 110/72 Patient's last menstrual period was 06/16/2024. ASSESSMENT & PLAN ICD-10-CM 1. Second trimester ([facility]) Z34.92 POCT urinalysis dipstick manually resulted 2. 21 weeks gestation of ([facility]) Z3A.21 POCT urinalysis dipstick manually resulted [...] 4 weeks; She is followed closely per [facility] with history of hypothyroidism. Will obtain growth ultrasounds every 4 weeks and begin NST/BPP at 32 weeks. Documented by Abril Stone NP on behalf of: Santosh Marshall DO documented in this encounterCameron Regional Medical CenterVhqrljvcpd55-25-1656 History of Present illness Narrative* Nadira Salazar [...] risk Have you been seen here at [facility] in a previous ? Recent ER visits or hospitalizations? No Bring blood sugar log or meter with you today? (Please bring them with you for every visit at [facility]) NA Flu vaccine (Jan-May)? NA Any concerns [...] Jacklyn Campos MD, FACOG (she/hers) Maternal- Medicine [facility] [address] [place] [address] This document was created with [employer] technology. Though I make every effort to review the dictation as it is transcribed, on occasion the spoken word can be misinterpreted by the technology leading to inappropriate words, phrases, or sentences. This note is addressed to the requesting provider as a consultation for clinical guidance. Specificmedical abbreviations are occasionally used and those are generally approved by the [place]?Board of?Obstetrics and?Gynecology?as well as?Lucy campos abbreviations. The above plan of care was based solely on the diagnoses for which a consultation was requested. ?More frequent testing may be indicated based on her other medical/obstetrical conditions. The management of other or medical conditions is beyond the scope of requested consultation and will c ontinue to be followed by the primary pasting machine offbearer or primary care provider. Note to patient: [...] opinion of the practitioner. documented in this encounterHighland District Hospitaleigital Tztrhz15-74-4719 History of Present illness Narrative* LIS Man [...] ICD-10-CM 1. Second trimester ([facility]) Z34.92 2. 17 weeks gestation of ([facility]) Z3A.17 POCT urinalysis dipstick manually resulted [...] behalf of: LIS Man documented in this encounterCameron Regional Medical CenterGicbjvtsyj33-16-1340 History of Present illness Narrative* Aliya JeronimoKALE [...] nursing note reviewed. Exam conducted with a production coordinator present. Vitals: Estimated body mass index is 22.1 kg/m as calculated from the following: Height as of 11/29/22: 5' 5 . Weight as of this encounter: 132 lb 12.8 oz. BP: 112/70 Patient's last menstrual period was 06/16/2024. ASSESSMENT & PLAN ICD-10-CM 1. 13 weeks gestation of ([facility]) Z3A.13 2. Second trimester ([facility]) Z34.92 3. Thyroid disease E07.9 levothyroxine [...] or undercooked meat, and stay away from [facility]. Patient has been consulted regarding any further do's and don'tsof . Patient voiced understanding and all questions and concerns were answered. Pt has h/o IUGR, thyroid disease, pt being referred to [facility] for level II ultrasound. Pt should be taking 125mcg of levothyroxine. Pt voiced understanding. Pt to start baby aspirin. Orders Placed This Encounter Procedures Glucose tolerance, 1 hour Follow Up: Patient is to return in 4 weeks for routine OB appointment. Documented by Aliya Jeronimo LPN on behalf of: Santosh Marshall DO documented in this encounterCameron Regional Medical [id number] History of Present illness Narrative* Carmita Tapia, [employer] AUTHOR - 08/17/2024 9:30 AM EDT Reason for [...] or undercooked meat, and stay away from [facility]. Patient has also been advised to not change litter boxes and eat 6 small meals a day. Patient has been consulted regarding the do's and don'ts ofpregnancy. Patient was given labs and all questions and concerns were answered. Patient was sent in Magnesium for headaches. Patient given [place] labs to do with initial labs along [...] by: Carmita Tapia LPN documented in this encounterC[facility] [id number] NotePatient Education Endocrinology Hypothyroidism Hypothyroidism is when [...] Follow these instructions at home: ??? Take rwsw-slf-kxidoch and prescription medicines only as told by [...] Reviewed: 03/09/2022 Elsevier Patient Education ? 2023 [employer] Obstetrics and Gynecology Health Maintenance, Female Adopting a healthy lifestyle and getting preventive care are important in promoting health and wellness. Ask your health care provider about: ??? The right schedule for you to have regular tests and exams. ??? Things (more content not included)...[facility]04-17-2025 NotePatient Education ENT How to Perform [...] cannot use soap and water, use hand rehab therapist. 2. Wash your device using the directions [...] provider. Document Revised: 08/24/2021 Document Reviewed: 08/24/2021 AMEE Patient Education ? 2023 [employer] [place]. Infectious Disease Sinus Infection, Adult A sinus [...] this diagnosed? Your s (more content not included)...[facility]09-23-2024 History of Present illness Narrative* Daiana [...] nursing note reviewed. Exam conducted with a production coordinator present. Vitals: Estimated body mass index is [...] of: Santosh Marshall DO documented in this encounterCameron Regional Medical [id number] Hospital Discharge instructions Patient Education 08/08/2023 16:25:47 [...] to help relieve pain. General instructions Take zrch-bxf-fsqdwqt and prescription medicines only as told by [...] provider. Document Revised: 10/22/2020 Document Reviewed: 10/22/2020 AMEE Patient Education 2022 [employer]. 08/08/2023 16:25:44 Hemorrhoids Hemorrhoids Hemorrhoids are swollen [...] 3 times a day. General instructions Take fsca-two-xqmfgbc and prescription medicines only as told by [...] provider. Document Revised: 09/16/2021 Document Reviewed: 09/16/2021 AMEE Patient Education 2022 [employer]. 08/08/2023 16:25:43 Urinary Tract Infection, Adult Urinary [...] Treatment for this condition includes: Antibiotic medicine. Jrjv-zlk-fhgtosy medicines to treat discomfort. Drinking enough water [...] Follow these instructions at home: Medicines Take ucgn-ceq-zlgxwdq and prescription medicines only as told by [...] provider. Document Revised: 10/17/2020 Document Reviewed: 10/17/2020 AMEE Patient Education 2022 [employer]. 08/08/2023 16:25:41 Hypothyroidism Hypothyroidism Hypothyroidism is when [...] away. Follow these instructions at home: Take ylnj-axc-ubnodkf and prescription medicines only as told by [...] provider. Document Revised: 03/09/2022 Document Reviewed: 03/09/2022 AMEE Patient Education 2022 [employer]. [facility] Primary Care 05-20-2024 Evaluation + Plan note Future Scheduled Tests Laboratory* UA with Cult Rflx 08/08/23 * CBC w/ Auto Diff 02/08/24 * Comprehensive Metabolic Panel 02/08/24 * Thyroid Stimulating Hormone 02/08/24 * Thyroid Stimulating Hormone 05/16/23 * Free T4 02/08/24 * Free T4 05/16/23 [facility] 12-20-2023 Hospital Discharge [...] including vitamins, herbs, eye drops, creams, and yolv-jjp-hgpfsab medicines. ?Whether you are or may be [...] provider. Document Revised: 11/18/2021 Document Reviewed: 10/10/2020 AMEE Patient Education 2022 [employer]. 03/09/2023 08:08:48 Urinary Tract Infection, Adult Urinary [...] Treatment for this condition includes: Antibiotic medicine. Kpjc-xoo-uueifxk medicines to treat discomfort. Drinking enough water [...] Follow these instructions at home: Medicines Take qtno-dfe-pztanct and prescription medicines only as told by [...] provider. Document Revised: 10/17/2020 Document Reviewed: 10/17/2020 AMEE Patient Education 2022 [employer]. 03/09/2023 08:08:46 Hypothyroidism Hypothyroidism Hypothyroidism is when [...] away. Follow these instructions at home: Take mhrj-thb-vplkbuc and prescription medicines only as told by [...] provider. Document Revised: 03/09/2022 Document Reviewed: 03/09/2022 [employer] Patient Education 2022 [employer]. Follow Up Care 03/07/2023 12:06:45 With:Ya Wang FAM, [facility] Address: [address], [address] [place] [id number] Business (1) When:05/25/2023 Comments:for f/u [facility] 12-04-2023 Hospital Discharge [...] Follow these instructions at home: Medicines Take cbyn-eru-btblcmj and prescription medicines only as told by [...] provider. Document Revised: 10/17/2020 Document Reviewed: 10/17/2020 AMEE Patient Education 2022 [employer] [place]. Follow Up Care 02/21/2023 08:19:47 With:Ya Wang FAM, MED Address: [address] [place], [place] [id number] Business (1) When:05/25/2023 Comments:for f/u [facility] 09-12-2023 Hospital Discharge [...] Bulgur wheat. Millet. Quinoa. Bran muffins. Popcorn. [place] wafer crackers. Meats and other proteins Maxton beans, kidney beans, and díaz beans. Soybeans. [...] Cream cheese. Sour cream. Fats and oils [place]. Beverages Soft drinks. Other foods Cakes and [...] Document Reviewed: 07/10/2020 Elsevier Patient Education 2022 [employer]. Follow Up Care 11/11/2022 12:10:41 With:Daniel Gray CNP Address: When:2 weeks Comments:Following EGD/Colonoscopy. [facility] 08-24-2023 Hospital Discharge [...] per serving. Talk with a diet and reliability specialist (dietitian) if you have questions about [...] Bulgur wheat. Millet. Quinoa. Bran muffins. Popcorn. [place] wafer crackers. Meats and other proteins Maxton, kidney, and díaz beans. Soybeans. Split peas. [...] Cream cheese. Sour cream. Fats and oils [place]. Beverages Soft drinks. Other foods Cakes and [...] 03/07/2006 Document Revised: 01/09/2018 Document Reviewed: 01/09/2018 AMEE Patient Education 2020 [employer]. 11/11/2022 01:00:54 Hemorrhoids Hemorrhoids Hemorrhoids are swollen [...] 3 times a day. General instructions Take jill-smk-vaillgy and prescription medicines only as told by [...] provider. Document Revised: 09/16/2021 Document Reviewed: 09/16/2021 AMEE Patient Education 2022 [employer] [place]. Follow Up Care 11/08/2022 14:59:04 With:aY Wang FAM, [facility] Address: [address] [place] [address] [facility] (1) When:Within 3 Month(s) Comments:3 mo f/u [facility] 02-13-2023 Hospital Discharge [...] away. Follow these instructions at home: Take aldj-bcc-dyabhic and prescription medicines only as told by [...] 03/07/2006 Document Revised: 02/17/2018 Document Reviewed: 02/15/2018 AMEE Patient Education [employer]. Follow Up Care 04/05/2022 12:35:49 With:Ritu Desai CNP Address: [address] [place] [phone] When:1 year Comments:or sooner if needed. [facility] Primary [facility] Evaluation + Plan note No data available for this section [facility] Evaluation + Plan note Future Appointments Appointment Date:11/30/2022 12:00:00 PM Scheduled Provider:Daniel Gray CNP Location:[facility] Appointment Type:BAD New Patient Appointment Date:04/04/2023 01:00:00 PM Scheduled Provider:Ya Wang Location:[facility] Appointment Type: Open Future Scheduled Tests Laboratory* TSH With T4fr Reflex 10/08/22 [facility] Primary Care Evaluation + Plan note Future Appointments Appointment Date:04/04/2023 01:00:00 PM Scheduled Provider:Ya Wang Location:[facility] Appointment Type:FM Open Future Scheduled Tests Laboratory* TSH With T4fr Reflex 10/08/22 [facility] Evaluation + Plan note Future Appointments Appointment Date:07/25/2023 10:00:00 AM Scheduled Provider:Ya Wang Location:[facility] Appointment Type:FM Open Future Scheduled Tests Laboratory* T3 Free 02/21/23 * Thyroid Stimulating Hormone 02/21/23 * Free T4 02/21/23 [facility] Evaluation + Plan note Future Appointments Appointment Date:07/25/2023 10:00:00 AM Scheduled Provider:Ya Wang Location:[facility] Appointment Type:FM Open Diagnostic Tests Pending * Urine Culture 02/21/23 Future Scheduled Tests Laboratory* T3 Free 02/21/23 * Thyroid Stimulating Hormone 02/21/23 * Free T4 [facility]23 [facility] Appointment Date:07/25/2023 10:00:00 AM Scheduled Provider:Ya Wang [facility] Type:[facility] Open Future Scheduled Tests Laboratory* T3 Free 02/21/23 * Thyroid Stimulating Hormone 02/21/23 * Free T4 02/21/23 Radiology* US Retroperitoneal Complete 03/09/23 [facility] Evaluation + Plan note Future Appointments Appointment Date:07/25/2023 10:00:00 AM Scheduled Provider:Ya Wang [facility] Type:FM Open Diagnostic Tests Pending * Urine Culture 03/09/23 Future Scheduled Tests Laboratory* T3 Free 02/21/23 * Thyroid Stimulating Hormone 02/21/23 * Free T4 02/21/23 Radiology* US Retroperitoneal Complete 03/09/23 [facility] App[facility]ments Appointment Date:07/12/2023 09:30:00 AM Scheduled Provider:OPAL LUZ PA-C Location:[facility] Appointment Type:URO New Patient Appointment Date:07/25/2023 10:00:00 AM Scheduled Provider:Ya Wang [facility] Type:FM Open Diagnostic Tests Pending * T3 Free 03/22/23 [facility] Future App[facility]ments Appointment Date:07/12/2023 09:30:00 AM Scheduled Provider:OPAL LUZ PA-C Location:[facility] Appointment Type:URO New Patient Appointment Date:07/25/2023 10:00:00 AM Scheduled Provider:Ya Wang [facility] Type:FM Open [facility] Future Appointments Appointment Date:07/25/2023 10:00:00 AM Scheduled Provider:Ya Wang Location:[facility] Appointment Type:FM Open Future Scheduled Tests Laboratory* Thyroid Stimulating Hormone 05/16/23 * Free T4 05/16/23 [facility] evaluation + Plan note Future Scheduled Tests Laboratory* CBC w/ Auto Diff 02/08/24 * Comprehensive Metabolic Panel 02/08/24 * Thyroid Stimulating Hormone 02/08/24 * Free T4 02/08/24 [facility] Future App[facility]ments Appointment Date:07/09/2024 08:00:00 AM Scheduled Provider:Marta Rivas Location:[facility] Appointment Type:FM New Patient - Adult Future Scheduled Tests Laboratory* CBC w/ Auto Diff 02/08/24 * Comprehensive Metabolic Panel 02/08/24 * Thyroid Stimulating Hormone 02/08/24 * Free T4 02/08/24 [facility] Evaluation note* Diagnosis Well woman exam with routine gynecological exam Routine gynecological examination documented [facility] encounter [facility] Diagnosis Family history of autism Family history of psychiatric condition [facility] Diagnosis Missed menses , unspecified gestational age Encounter for supervision of normal first in first trimester Nonintractable headache, unspecified chronicity pattern, unspecified headache type documented in this encounter [facility]* Diagnosis 13 weeks gestation of (HHS-HCC) Second trimester (HHS-HCC) state, incidental Thyroid disease Unspecified disorder of thyroid History of prior with IUGR Diabetes mellitus screening Screening for diabetes mellitus documented in this encounter [facility]* Diagnosis Thyroid disease affecting - Primary History of prior with IUGR [facility] Diagnosis Second trimester (HHS-HCC) [...] rupture of membranes [facility] Diagnosis 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 trimester- Primary History of prior with IUGR History of premature rupture of membranes [facility] Diagnosis Hypothyroidism, unspecified type- Primary Second trimester (HHS-HCC) state, incidental 21 weeks gestation of (HHS-HCC) Vaginal discharge Leukorrhea, not specified as infective STD exposure documented in this encounter [facility]* Diagnosis Size of fetus inconsistent with dates in second trimester (HHS-HCC)- Primary Second trimester (HHS-HCC) state, incidental 25 weeks gestation of (HHS-HCC) Diabetes mellitus screening Screening for diabetes mellitus documented in this encounter [facility]* Diagnosis Third trimester (HHS-HCC) state, incidental 28 weeks gestation of (HHS-HCC) documented in this encounter [facility]* Diagnosis Third trimester (HHS-HCC) state, incidental 30 weeks gestation of (HHS-HCC) documented in this encounter [facility]* Diagnosis Third trimester (HHS-HCC) state, incidental 32 weeks gestation of (HHS-HCC) Thyroid disease Unspecified disorder of thyroid History of prior with IUGR Hypothyroidism, unspecified type [facility] No data available for this section [facility] on filedocumented in this encounter [facility] filedocumented in this encounter [facility] on filedocumented in this encounter [facility] on filedocumented in this encounter [facility] No data available for this section [facility] Care Summary Purpose Family [...] InactivatedComments04/21/2021 7:00 PM2 1:57 PMDate Activated Date ZeuabbpoifpPavasykq82/14/2021 5:01 PM03/26/2021 7:46 PMDate ActivatedDate InactivatedComments05/30/2021 7:15 AM06/01/2021 2:55 PMDate ActivatedDate InactivatedComments05/12/2021 1:10 PM2 2:16 PMDate ActivatedDate InactivatedComments04/21/2021 7:00 PM2 1:57 PMDate ActivatedDate JxieufkteytQczwphqh20/14/2021 5:01 PM03/26/2021 7:46 PM Additional Source Comments INFORMATION SOURCE (unrecogn ized section and content) DATE CREATED AUTHOR [facility] DATE CREATED AUTHOR AUTHOR'S ORGANIZ ATION 09/09/2023 [facility] DATE CREATED AUTHOR AUTHOR'S ORGANIZ ATION 05/21/2024 [facility] DATE CREATED AUTHOR AUTHOR'S ORGANIZ ATION 07/06/2024 [facility] DATE CREATED AUTHOR AUTHOR'S ORGANIZ ATION 07/10/2024 [facility] DATE CREATED AUTHOR AUTHOR'S ORGANIZ ATION 07/13/2024 [facility] DATE CREATED AUTHOR AUTHOR'S ORGANIZ ATION 11/21/2024 [facility] DATE CREATED AUTHOR AUTHOR'S ORGANIZ ATION 12/12/2024 [facility] DATE CREATED AUTHOR AUTHOR'S ORGANIZ ATION 01/28/2025 [facility] EPIC Patient Care team informatio n (unrecognized section and content) Team MemberRelationshipSpecialtyStart DateEnd Date Staci White MD [address] [place] [address] PCP - GeneralInternal Medicine11/29/22Team MemberRelationshipSpecialtyStart Date End Date Staci White MD [address] [place] [address] PCP - GeneralInternal Medicine11/29/22Team MemberRelationshipSpecialtyStart Date End Date Staci White MD [address] [place] [address] PCP - GeneralInternal Medicine11/29/22Team MemberRelationshipSpecialtyStart Date [place] [address] Attending ProviderMedical Clinical Genetics05/14/24Team MemberRelationship SpecialtyStart DateEnd Date Staci White MD [address] [place], [place] [id number] PCP - GeneralInternal Medicine11/29/22am MemberRelationshipSpecialtyStart Date End Date Staci White MD [address] [place] [address] PCP - GeneralInternal Medicine11/29/22am MemberRelationshipSpecialtyStart Date End Date Staci White MD [address] [place] [id number] PCP - GeneralInternal Medicine11/29/22am MemberRelationshipSpecialtyStart Date End Date Staci White MD [address] [place] [address] PCP - GeneralInternal Medicine11/29/22am MemberRelationshipSpecialtyStart Date End Date Staci White MD PCP - GeneralInternal Medicine04/07/21am MemberRelationshipSpecialtyStart Date End Date Staci White MD [address] [place] [address] PCP - GeneralInternal Medicine11/29/22am MemberRelationshipSpecialtyStart Date End Date Staci White MD PCP - GeneralInternal Medicine04/07/21am MemberRelationshipSpecialtyStart Date End Date Staci White MD PCP - GeneralInternal Medicine04/07/21Te MemberRelationshipSpecialtyStart Date End Date Staci White MD [address] [place] [id number] [facility]CP - [facility]En[facility]11/29/22Te MemberRelationshipSpecialtyStart Date End Date Staci White MD [address] [place] [id number] PCP - GeneralInternal [facility]11/29/22Te MemberRelationshipSpecialtyStart Date End Date Staci hWite MD [address] [place] [id number] [facility]11/29/22Te MemberRelationshipSpecialtyStart Date End Date Staci White MD [address] [place] [id number] [facility]11/29/22Te MemberRelationshipSpecialtyStart Date End Date Staci White MD [address] [place] [address] PCP - GeneralEn[facility]alenal [facility]11/29/22 Reason for Visit (unrecogniz ed section and [...] BE BASED ON THE PRIMARY CLINICAL RECORDS. [facility] provides no warranty or guarantee of the accuracy or completeness of information in this document.
[2025-02-26 17:30] VITALS: BP 108/69; PULSE 100; TEMP 36.5; O2SAT 99
== END 2025-02-26 17:41 | disposition home or self-care (01) ==
LOC: FBCO 09:18
PROVIDERS: Visit Provider Obstetrics & Gynecology
DX: Z39.2 Encounter for routine postpartum follow-up (principal)

== ENCOUNTER 2025-03-04 08:13 | Outpatient (OUT) | payer BC, SELFPAY ==
--- OUTSIDE RECORDS SUMMARY | 2025-03-04 08:17 | XMS_ITS | Clinical Summary ---
Author Organization [facility] [place] [address] Care Team Providers Care Bakery Demonstrator Name Role Phone Carmita Jurado MD Unavailable [phone] Social History Tobacco UseTypesPacks/DayYears UsedDateSmoking Tobacco: Never Assessed CommentsUnknownSex and Gender InformationValueDate RecordedSex Assigned at Not on fileLegal NgjOmkxst50/24/2025 11:11 AM ESTGender IdentityNot on file Sexual [...] Td or Tdap), 06/22/2010, 10/16/2003, Additional history eotfivGXJLrcwtbsxa59/28/2004, 01/26/19995330DzwUEUNPosjevaex70/27/2016, 06/22/2010HIBAged OutNo longer eligible based on patient's age to complete this topicNirsevimabAged OutNo longer eligible based on patient's age to complete this topicPneumococcalAged OutNo longer eligible based on patient's age to complete this topicRotavirusAged OutNo longer eligible based on patient's age to complete this topic Insurance Care Teams Team MemberRelationshipSpecialtyStart DateEnd [place] [address] Attending ProviderMedical Clinical Genetics2/24/25
--- OUTSIDE RECORDS SUMMARY | 2025-03-04 08:17 | XMS_ITS | Clinical Summary ---
Author Organization [facility] Address [address] [place] [address] Care Team Providers Care Export Clerk Name Role Phone Carrillo White MD Primary Care Provider [phone] Allergies No known active allergies Medications MedicationSigDispense QuantityRefillsLast FilledStart DateEnd DateStatus levothyroxine (Synthroid) 125 MCG tablet Indications:Thyroid diseaseTake 1 tablet (125 mcg) by mouth in the morning. Take before meals. 30 tablet 1106//959694/6Active MV-Min-Fe Fum-FA-DHA ( 1 PO) Take by mouthActive Active Problems ProblemNoted DateDiagnosed DateThyroid ugsukam6001/28/2025History of prior with IUGR vuitqbb5801/28/2025Estimated Date of DeliveryComments Yes03/23/2025ased on last menstrual period of 06/16/2024 Encounters DateTypeDepartmentCare MlupXmbgovtdwjq36/05/2025linisync Result Encounter [facility] External Department Unsolicited Shauna Marshall, DO 5Clinisync Result Encounter NOMS External Department Unsolicited Shauna Marshall, DO 5Clinisync Result Encounter [facility]OMS External Department Unsolicited Shauna Marshall, DO 02/18/2025Telephone [facility] Augustina FUENTES [address] [place] [address] [place] [address] Ann Ma MA 5Clinisync Result Encounter NOMS External Department Unsolicited Shauna Marshall, DO 02/12/2025linisync Result Encounter NOMS External Department Unsolicited Shauna Marshall, DO 02/05/2025linisync Result Encounter [facility]OMS External Department Unsolicited Shauna Marshall, DO 02/05/2025linisync Result Encounter [facility]OMS External Department Unsolicited Abril Stone NP 02/04/2025 8:00 AM ESTAncillary Procedure [facility] Augustina [place] [phone] Thyroid disease; History of prior with IUGR ; Hypothyroidism, unspecified type01/28/2025 8:30 AM ESTRoutine [facility] Augustina [place] [address] Shauna Marshall, DO Third trimester ([facility]); 32 weeks gestation of ([facility]); Thyroid disease; History of prior with IUGR ; Hypothyroidism, unspecified type01/28/2025amboo flowsheet [facility] Augustina FUENTES [address] [place] [address] Shauna Marshall, DO 01/14/2025 8:30 AM EDTRoutine [facility] Augustina [place] [address] Shauna Marshall, DO Third trimester ([facility]); 30 weeks gestation of ([facility])01/14/2025amboo flowsheet [facility] Augustina [place] [address] Shauna Marshall, DO 12/31/2024 11:00 AM EDTRoutine [facility] [place] [address] Shauna Marshall, DO Third trimester ([facility]); 28 weeks gestation of ([facility])12/31/2024 10:30 AM EDTAncillary Procedure [facility] Augustina [place] [phone] Size of fetus inconsistent with dates in second trimester ([facility])12/12/2024 Abstract [facility] Augustina [place] [phone] Shauna Marshall 12/12/2024linisync Result Encounter NOMS External Department Unsolicited Erum Guidry PA 12/11/2024Telephone [facility] Augustina [place] [phone] rEum Guidry PA 12/11/2024linisync Result Encounter [facility]OMS External Department Unsolicited Erum Guidry PA 12/10/2024 10:00 AM EDTRoutine [facility] Augustina [place] [address] Erum Guidry PA Size of fetus inconsistent with dates in second trimester ([facility]) (Primary Dx); Second trimester ([facility]); 25 weeks gestation of ([facility]); Diabetes mellitus uubefrzqs88/22/2025amboo flowsheet [facility] Augustina [place] [address] Erum Guidry PA from Last 3 Months Family History Medical [...] ValueDate RecordedSex Assigned at BirthNot on fileLegal UovDynxrv09/15/2023 10:14 PM EDTGender IdentityNot on fileSexual OrientationNot on file Last Filed Vital Signs Vital SignReadingTime TakenCommentsBlood Dyyzhytr808/7001/28/2025 8:39 AM EST Pulse--Temperature--Respiratory Rate--Oxygen Saturation--Inhaled Oxygen Concentration--Vyqkzn84.7 kg (158 lb)01/28/2025 8:39 AM OYHEezolh960.1 cm (5' 5 )11/29/2022 3:23 PM EDTBody Mass Index26.2909 3:23 PM EDT Plan of Treatment Not on file Procedures Procedure NamePriorityDate/TimeAssociated DiagnosisCommentsALL CBC WITH AUTO UELYNhrgqpz20/05/2025 6:16 AM EST HMHP CBC WITH PLATELET NO UKIXCFAREJXOOnijqyl84/04/2025 3:05 AM EST [facility] DRUG SCREEN RAPID (URINE)Kwbfvsb8702/21/2025 2:35 AM EST US OB BPP W NON-IXRIMO2802/19/2025 2:15 PM EST US OB BPP W NON-NNPUYH0802/12/2025 8:46 PM EST ALL CBC WITH AUTO EMGOZzkmxll79/25/2025 4:15 PM EST [facility] DRUG SCREEN RAPID (URINE)Oxzpcbl2902/12/2025 4:00 PM EST [facility] UA (CLEAN/CATCH) RECTANGULAR TANK COOPER/MICRO IF IND.Ywwaabi0402/12/2025 4:00 PM EST US OB BPP W NON-HCIMTL1402/05/2025 7:47 PM EST ALL THYROID STIM MNDQLIEMeqpiuw31/18/2025 2:42 PM EST US OB FOLLOW UP TRANSABDOMINAL RUNYSIMIZawyjep27/17/2025 8:26 AM EST Thyroid disease History of prior with IUGR Hypothyroidism, unspecified type POCT URINALYSIS GKIACGDTCxkwnqh26/10/2025 8:40 AM EST Third trimester ([facility]) POCT URINALYSIS ZKCRTQVIGrjsshx75/27/2025 8:40 AM EDT Third trimester ([facility]) POCT URINALYSIS DNWRNXNFCdkhusm17/13/2025 11:29 AM EDT Third trimester ([facility]) US OB FOLLOW UP TRANSABDOMINAL COJZGZQZBewzoph45/13/2025 10:55 AM EDT Size of fetus inconsistent with dates in second trimester ([facility]) GLUCOSE TOLERANCE 3 XFAVGzdiiaj56/24/2025 8:42 AM EDT ALL THYROID STIM WKHZLRPKdgcvat49/23/2025 9:34 AM EDT GLUCOSE 1 DCIEQojwvdj68/23/2025 9:34 AM EDT ALL CBC WITH AUTO YMHYBvosfbt40/23/2025 9:34 AM EDT POCT URINALYSIS VUAYAUCDIxbdoam35/22/2025 10:28 AM EDT Second trimester ([facility]) from Last 3 Months Results * (ABNORMAL) ALL CBC WITH AUTO DIFF (02/22/2025 6:16 AM EST) Only the most recent of3 resultswithin the time period is included. ComponentValueRef RangeTest MethodAnalysis TimePerformed AtPathologist Signature [facility] WBC11.3(H)4.0 - 11.0 10 3/uLTBHTBH RBC3.44(L)4.20 - 5.40 10 6/uLTBHTBH HGB 10.3(L)12.0 - 16.0 g/dLTBHTBH HCT31.9(L)36.0 - 48.0 %TBHTBH MCV92.781.0 - 99.0 fLTBHTBH MCH29.926.7 - 34.0 pgTBHTBH MCHC32.329.9 - 35.2 g/dLTBHTBH RDW13.311.0 - 15.0 %TBHTBH HKB940306 - 450 10 3/uLTBHTBH MPV10.19.5 - 13.5 fLTBHNEUTROPHILS PERCENT AUTO71.143.0 - 75.0 %TBHLYMPHOCYTES PERCENT AUTO19.8(L)20.5 - 60.0 %TBH MONOCYTES PERCENT AUTO6.91.7 - 12.0 %TBHTBH EO %1.10.9 - 7.0 %TBHBASOPHILS PERCENT AUTO0.60.2 - 2.0 %TBHIMMATURE GRANULOCYTES PCT AUTO0.50.0 - 0.5 %TBH NEUTROPHILS ABSOLUTE AUTO8.1(H)1.4 - 6.5 10 3/uLTBHLYMPHOCYTES ABSOLUTE AUTO2.2 1.2 - 3.8 10 3/uLTBHMONOCYTES ABSOLUTE AUTO0.80.3 - 0.8 10 3/uLTBHTBH EO #0.10.0 - 0.7 10 3/uLTBHBASOPHILS ABSOLUTE AUTO0.10.0 - 0.1 10 3/uLTBHIMMATURE GRANULOCYTES ABS AUTO0.06(H)0.00 - 0.03 10 3/uLTBHSpecimen (Source)Anatomical Location / LateralityCollection Method / VolumeCollection TimeReceived Time 02/22/2025 6:16 AM EST02/22/2025 6:29 AM EST Narrative CLIN[facility]YNC - 02/22/2025 6:37 AM EST Authorizing ProviderResult TypeResult StatusCorey Joanna DOCLINISYNCFinal Result Performing OrganizationAddressCity/State/ZIP CodePhone Number CLINISYNC TB * (ABNORMAL) [facility] CBC WITH PLATELET NO DIFFERENTIAL (02/21/2025 3:05 AM EST) ComponentValueRef RangeTest MethodAnalysis TimePerformed AtPathologist SignatureTB WBC11.4(H)4.0 - 11.0 10 3/uLTBHTBH RBC3.52(L)4.20 - 5.40 10 6/uL TBHT HGB10.6(L)12.0 - 16.0 g/dLTBHTBH HCT32.3(L)36.0 - 48.0 %[facility] MCV91.8 81.0 - 99.0 fLTBHTB MCH30.126.7 - 34.0 pgTBHTBH MCHC32.829.9 - 35.2 g/dLTBSAC-[facility] RDW13.111.0 - 15.0 %TBNEW[facility] [id number] - 450 10 3/uLTBHTBH MPV10.29.5 - 13.5 fLTBHSpecimen (Source)Anatomical Location / LateralityCollection Method / VolumeCollection TimeReceived Time02/21/2025 3:05 AM EST02/21/2025 3:09 AM EST Narrative [facility]IN[facility]NC - 02/21/2025 3:29 AM EST Authorizing ProviderResult TypeResult StatusCorey Joanna DOCLINISYNCFinal Result Performing OrganizationAddressCity/State/ZIP CodePhone Number [facility] * [facility] DRUG SCREEN RAPID (URINE) (02/21/2025 2:35 AM EST) Only the most recent of2 resultswithin the time period is included. ComponentValueRef RangeTest MethodAnalysis TimePerformed AtPathologist Signature CANNABINOID SCREEN URINENEGATIVENEGATIVETBHPHENCYCLIDINE SCREEN URINENEGATIVE NEGATIVETBHCOCAINE SCREEN URINENEGATIVENEGATIVETBHMETHAMPHETAMINES SCREEN URINE NEGATIVENEGATIVETBHOPIATE SCREEN URINENEGATIVENEGATIVETBHAMPHETAMINE SCREEN URINENEGATIVENEGATIVETBHBENZODIAZEPINES SCREEN URINENEGATIVENEGATIVETBHTRICYCLIC ANTIDEPRESSANT URINENEGATIVENEGATIVETBHMETHADONE SCREEN URINENEGATIVENEGATIVETBH BARBITURATES SCREEN URINENEGATIVENEGATIVETBHOXYCODONE SCREEN URINENEGATIVE NEGATIVETBHBUPRENORPHINE SCREEN URINENEGATIVENEGATIVETBHComment: [...] / LateralityCollection Method / Volume Collection TimeReceived Time02/21/2025 2:35 AM EST02/21/2025 3:09 AM EST Narrative [facility] - 02/21/2025 3:24 AM EST Authorizing ProviderResult TypeResult StatusCorey Joanna DOCLINISYNCFinal Result Performing OrganizationAddressCity/State/ZIP CodePhone Number [facility] * US OB BPP W NON-STRESS (02/19/2025 2:15 PM EST) Only the most recent of3 resultswithin the time period is included. Anatomical RegionLateralityModalityOtherSpecimen (Source)Anatomical Location / LateralityCollection Method / VolumeCollection TimeReceived Time02/19/2025 2:15 PM EST Narrative 02/19/2025 2:18 PM EST [facility] ?[address] ? [place] [address] ? Ultrasound Report ? Signed ? Patient: YANA PAYNE ?MR#: [id number] ?? : 2000 ?Acct:[id number] ?? Age/Sex: 25 / F ?ADM Date: 02/19/25 ?? Loc: [facility] ??252-1 ? Attending Dr: Shauna Marshall D.O. ? Ordering Physician: Shauna Marshall D.O. ?? Date of Service: 02/19/25 ?? Procedure(s): US OB BPP w non-stress ?? Accession Number(s): [id number] ? cc: Shauna Marshall D.O.; Physician,Non-Staff M.D. ? [facility] ? [address] ? [place] [address] ? Patient Name: ?? YANA PAYNE ? MRN: [id number] ? date: 2000 ?Sex: F ?? Assigned Patient Location: [facility] ?? Current Patient Location: [facility] ?? Accession/Order Number: [id number] ?? Exam Date: 02/19/2025 ??13:08 ?Report Date: 02/19/2025 ??14:15 ? At the request of: ?? SHAUNA ??JOANNA ??DO ? Procedure: ??US OB BPP w non-stress ? Biophysical profile. ? Reason for exam: Thyroid disease ? COMPARISON: BPP 02/12/2025 ? TECHNIQUE: Transabdominal imaging of the gravid uterus was obtained. ? FINDINGS: The mushroom picker reports a BPP of 8 out of 8. ??CALVIN is normal at 24.96 ?? cm. ?? heart rate 153 bpm. ? US/US OB BPP w non-stress ?? IMPRESSION: BPP 8 out of 8. ? Borderline polyhydramnios. ? Impression dictated by: Hermelindo [place] Jr., D.O. ??02/19/2025 2:15 PM ? Dictation Location: [facility]27 ? Electronically authenticated by: [id number] ??Y ?? Date: 02/19/2025 ??14:15 ? Dictated By: ?Hermelindo [place]o M.D. ? Signed By: ?02/19/25 1418 ? DD/ 1415 ? TD/TT: ? Tender Coordinator: Procedure Note Radiology, Radiologist, - 02/19/2025 [place] [address] Ultrasound Report Signed Patient: YANA PAYNE RMR#: [id number] : 2000Acct:[id number] Age/Sex: 25 / FADM Date: 02/19/25 Loc: [facility] 252-[address]: Shauna Marshall D.O. Ordering Physician: Shauna Marshall D.O. Date of Service: 02/19/25 Procedure(s): US OB BPP w non-stress Accession Number(s): [id number] cc: Shauna Marshall D.O.; Physician,Non-Staff M.D. The [address] [address] Patient Name: YANA PAYNE MRN: [id number] date: 2000 Sex: F Assigned Patient Location: [facility] Current Patient Location: [facility] Accession/Order Number: [id number] Exam Date: 02/19/2025 13:08 Report Date: 02/19/2025 14:15 At the request of: SHAUNA MARSHALL DO Procedure: US OB BPP w non-stress Biophysical profile. Reason for exam: Thyroid disease COMPARISON: BPP 02/12/2025 TECHNIQUE: Transabdominal imaging of the gravid uterus was obtained. FINDINGS: The mushroom picker reports a BPP of 8 out of 8. CALVIN is normal at24.96 cm. heart rate 153 bpm. US/US OB BPP w non-stress IMPRESSION: BPP 8 out of 8. Borderline polyhydramnios. Impression dictated by: Hermelindo [place] Jr., D.O. 02/19/2025 2:15 PM Dictation Location: [place] [address] Electronically authenticated by: [id number] Y Date: 4:15 Dictated By: Hermelindo [place]o M.D. Signed By:02/19/25 1418 DD/ 14 TD/TT: Tender Coordinator: Authorizing ProviderResult TypeResult StatusCorey Joanna DOCLINISYNC IMAGINGFinal Result * (ABNORMAL) [facility] UA (CLEAN/CATCH) RECTANGULAR TANK COOPER/MICRO IF IND. (02/12/2025 4:00 PM EST) ComponentValueRef [...] 02/12/2025 5:07 PM EST Authorizing ProviderResult TypeResult StatusCoreemigdio Marshall DOCLINISYNCFinal Result Performing OrganizationAddressCity/State/ZIP CodePhone Number [facility] * ALL THYROID STIM HORMONE (02/05/2025 2:42 PM EST) Only the most recent of2 resultswithin the time period is included. ComponentValueRef RangeTest MethodAnalysis TimePerformed AtPathologist Signature THYROID STIMULATING HORMONE1.3280.358 - 3.740 uIU/mLTBHSpecimen (Source) Anatomical Location / LateralityCollection Method / VolumeCollection Time Received Time02/05/2025 2:42 PM EST02/05/2025 2:44 PM EST Narrative [facility] - 02/05/2025 3:43 PM EST Authorizing ProviderResult TypeResult StatusKrsunny Joneserly NPCLINISYNCFinal ResultPerforming OrganizationAddressCity/State/ZIP CodePhone Number [facility] * US OB follow up transabdominal approach [...] BY: Hermelindo Padilla MD Authorizing ProviderResult TypeResult StatusKrsunny Joneserly NPIMG OB US PROCEDURESFinal Result * POCT [...] Location / LateralityCollection Method / VolumeCollection TimeReceived ClmeMklaq73/10/2025 8:40 AM EST Narrative Authorizing ProviderResult TypeResult [...] 12:31 PM EDT Authorizing ProviderResult TypeResult StatusAmy [place] PALAB BLOOD ORDERABLES Final ResultPerforming OrganizationAddressCity/State/ZIP CodePhone Number [facility]NC [facility] * (ABNORMAL) GLUCOSE 1 HOUR (12/11/2024 9:34 AM EDT)ComponentValueRef RangeTest MethodAnalysis TimePerformed AtPathologist SignatureGLUCOSE 1 MFUC206(H)<130 mg/dLTBHSpecimen (Source)Anatomical Location / LateralityCollection Method / VolumeCollection TimeReceived Time12/11/2024 9:34 AM EDT12/11/2024 10:16 AM EDT Narrative CLINISYNC - 12/11/2024 10:57 AM EDT Authorizing ProviderResult TypeResult StatusAmy [place] PALAB BLOOD ORDERABLES Final ResultPerforming OrganizationAddressCity/State/ZIP CodePhone Number CLINVALDEZNC [facility] from Last 3 Months Insurance Care Teams Team MemberRelationshipSpecialtyStart DateEnd Date Carrillo White MD [address] [place] [address] PCP - GeneralInternal Medicine11/29/22
--- OUTSIDE RECORDS SUMMARY | 2025-03-04 08:17 | XMS_ITS | Clinical Summary ---
Author Organization [employer] [facility] Address [id number] [address] [place] [address] Care Team Providers Care Retail And Promotions Coordinator Name Role Phone Carrillo White MD Primary Care Provider [phone] Allergies No known active allergies Medications MedicationSigDispense QuantityRefillsLast FilledStart DateEnd DateStatus PNV no.95/ferrous fum/folic ac ( ORAL) Take by mouth in the morning.Active FREESTYLE LITE METER kit See Admin Instructions.03/26/2021ctive freestyle 28 gauge lancets Use daily as directed & as wnsgve0903/26/2021ctive acetaminophen (TYLENOL EXTRA STRENGTH) 500 mg tablet [...] the morning.Active Active Problems ProblemNoted DateDiagnosed DateLow-lying chdhktea98/18/2025History of prior with IUGR qgheosg3911/05/2024Family history of inygpi1711/05/2024History of gestational diabetes in prior , currently gzkbrngi10/18/2025History of prior with short cervix, currently /18/2025History of premature rupture of mrpugrazk80/18/2025Hypothyroidism affecting aywrlbppr68/18/2021 Overview (05/19/2021): 03/03/21 TSH 1.91 04/11 TSH not completed () On levothyroxine 125mcg Estimated Date of KfpiiujdXdaokdjlRgf54/03/2026ased on last menstrual period of 06/16/2024 Resolved Problems ProblemNoted DateDiagnosed DateResolved DatePreterm premature rupture of hvhwbrecy57Diet controlled gestational diabetes mellitus (GDM) in third gyygbnqox56Short cervix during in third nzaekzudz94 Overview (05/19/2021): Vaginal progesterone ANCS 03/03/21 and 03/04/21, rescue 05/12/21 and 05/13/21. laborPreterm uterine contractions in third trimester, tksvhlszlh10Pregnancy affected by growth ldzlxuszhai52 Overview (05/19/2021): 05/05/21: EFW 3%, AC 8%, nl DVP. Normal dopplers Encounters DateTypeDepartmentCare ZnlzKdsyddgwmeu34/23/2025 2:15 PM EDT - 12/11/2024 11:59 PM EDTHospital Encounter [facility] [address] [place] [address] 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 trimester; History of prior with IUGR ; History of premature rupture of membranes Discharge Disposition: Home12/11/2024Travelfrom Last 3 Months Immunizations ImmunizationAdministration DatesNext ZfnEcmd1405/26/2021 Family History Medical HistoryRelationNameCommentsDiabetesBrotherJordanDiabetesFather HypertensionFatherColon cancerMaternal GrandmotherEllenDiabetesMaternal GrandmotherEllenHypertensionMaternal GrandmotherEllenDepressionMotherTina DiabetesMotherTinaMental illnessMotherTinaStomach cancerMotherTinaBreast cancer Paternal Aunt 1SueMiscarriages / StillbirthsPaternal Aunt 2AuntAsthmaPaternal GrandfatherRichardDiabetesPaternal GrandfatherRichardHypertensionPaternal GrandfatherRichardBreast cancerPaternal GrandmotherMarilynColon cancerPaternal GrandmotherMarilynRelationNameStatusCommentsBrotherJordanFatherMaternal GrandmotherEllenMotherTinaDeceasedPaternal Aunt 1SuePaternal Aunt 2AuntPaternal GrandfatherRichardPaternal GrandmotherMarilyn Social History Tobacco UseTypesPacks/DayYears UsedDateSmoking Tobacco: NeverSmokeless Tobacco: NeverAlcohol UseStandard Drinks/WeekCommentsNot Currently0 (1 standard drink = 0.6 oz pure alcohol)[place] Depression ScaleAnswerDate Recorded [place] Depression Scale Uwiuo00906/04/2021The thought of harming myself has occurred to me.Never06/04/2021Hunger ScreeningAnswerDate Recorded Within the past 12 months we worried whether our food would run out before we got money to buy more.Never True11/05/2024Within the past 12 months the food we bought just didn't last and we didn't have money to get more.Never True 11/05/2024Estimated Date of ZdvrufmuArxtpxtuIfk11/03/2026ased on last menstrual period of 06/16/2024Sex and Gender InformationValueDate RecordedSex Assigned at BirthNot on fileLegal FapTvkdbu52/15/2021 10:50 AM EDTGender IdentityNot on fileSexual OrientationNot on file Last Filed Vital Signs Vital SignReadingTime TakenCommentsBlood Ureoqwke05/5808 11:51 AM EDT Izwbg780611/05/2024 11:51 AM JXXZdrvouubjnv99.9 ??C (98.4 ??F)06/04/2021 11:19 AM EDTRespiratory Hzve290006/01/2021 9:10 AM EDTOxygen Wiiuxwlmkw70%05/19/2021 10:27 AM ESTInhaled Oxygen Concentration--Ohsjcf28.8 kg (138 lb 6.4 oz)11/05/2024 11:51 AM JGCAzkzas232.1 cm (5' 5 )11/05/2024 11:51 AM EDTBody Mass Index23.03 11/05/2024 11:51 AM EDT Plan of Treatment Health MaintenanceDue DateLast DoneCommentsPap Smear2019Depression Zsjluetis49/Influenza Ncmftat98/02/2009RSV ( or age 60+ yrs) (1 - Risk 1-dose series)01/26/2025dult BMI Screening /Tobacco Apklsszji55DTaP,Tdap and Td Vaccines (8 - Td or Tdap)/10/2021, 06/22/2010, 10/16/2003, Additional history exists Medical Devices Not on file Procedures Procedure NamePriorityDate/TimeAssociated DiagnosisCommentsUS [facility] OB FOLLOW-UP, 1 PDZLGHromjxo95/23/2025 3:04 PM EDT 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 trimester History of prior with IUGR History of premature rupture of membranes from Last 3 Months Results * [facility] OB FOLLOW-UP, 1 FETUS (12/11/2024 3:04 PM EDT)Anatomical Region LateralityModalityOB-GYNUltrasoundSpecimen (Source)Anatomical Location / LateralityCollection Method / VolumeCollection TimeReceived Time12/11/2024 2:27 PM EDT Narrative 12/12/2024 1:35 PM EDT NAME: ??KERRY MILLAN : 2000 SEX: F Accession Number: [id number] ORDERING PHYSICIAN: ANTOINETTE BLAKELY REFERRING PHYSICIAN: SHAUNA NAIR Coding Procedures ? 28169: Ultrasound, uterus, real time with image documentation, follow up,transabdominal ? approach per fetus Indication Screening for follow-up survey, History of prior with gestational diabetes, History of prior with IUGR, History of prior with delivery, Hypothyroidism. History OB History ? 2. Para 1 ? [id number] Current Cell free DNA ?low risk analysis [...] (oz) ? 11 oz EFW by: ?Hadlock (CTO-DD-ZH-FL) Extended Tibia ??40.0 mm 25w 2d 39% Joanie [employer] Research Worker ? 2.9 mm CM ? 6.9 mm [...] view. RVOT view. LVOT view. 3-vessel view. 7-nzvlsd-nvcbhnb view. Situs. Aortic arch view. ? Bicaval [...] MVP measures 5 cm. Recommendations Please see [facility] recommendations from prior clinical and/or ultrasound report documentation. Subsequent follow up or other follow up as clinically determined by primary OB provider unless otherwise specified by [facility]. Results forwarded to ordering provider so they can follow up with the patient as necessary. Procedure Note Antoinette Blakely MD - 12/12/2024 NAME: KERRY MILLAN : 2000 SEX: F Accession Number: [id number] ORDERING PHYSICIAN: ANTOINETTE BLAKELY REFERRING PHYSICIAN: SHAUNA NAIR Coding Procedures 13259: Ultrasound, uterus, real time with image documentation, follow up, transabdominal approach per fetus Indication Screening for follow-up survey, History of prior withgestational diabetes, History of prior with IUGR, History of prior with delivery, Hypothyroidism. History OB History 2. Para 1 A5H9S5M9 Current Cell free DNA low risk analysis [...] EFW (oz) 11 oz EFW by: Hadlock (GMO-IV-LX-FL) Extended Tibia 40.0 mm 25w 2d 39% [employer] Research Worker 2.9 mm CM 6.9 mm 70% Nicolaides [...] view. RVOT view. LVOT view. 3-vessel view. 1-rsnnjw-jlzsvts view. Situs. Aortic arch view. Bicaval view. [...] MVP measures 5 cm. Recommendations Please see [facility] recommendations from prior clinical and/or ultrasoundreport documentation. Subsequent follow up or other follow up as clinically determined byprimary OB provider unless otherwise specified by [facility]. Results forwarded to ordering provider so they can follow up with thepatient as necessary. Authorizing ProviderResult TypeResult StatusAntoinette Blakely MDCHILDREN'[facility] ORDERABLESFinal Result from Last 3 Months Insurance Advance Directives * Full Code (Latest Code Status on File) Date ActivatedDate InactivatedComments05/30/2021 7:15 AM06/01/2021 2:55 PM * Full Code Date ActivatedDate InactivatedComments05/12/2021 1:10 PM2 2:16 PM * Full Code Date ActivatedDate InactivatedComments04/21/2021 7:00 PM2 1:57 PM * Full Code Date ActivatedDate FkzomyfyuqmGrrslukw65/14/2021 5:01 PM03/26/2021 7:46 PM Care Teams Team MemberRelationshipSpecialtyStart DateEnd Date Carrillo White MD PCP - GeneralInternal Medicine04/07/21
--- OUTSIDE RECORDS SUMMARY | 2025-03-04 08:17 | XMS_ITS | Encounter Summary ---
Author Organization [facility] Address [address] [place] [address] Care Team Providers Care Field Artillery Basic Name Role Phone Carrillo White MD Primary Care Provider [phone] Encounter Details DateTypeDepartmentCare Team (Latest Contact Info)Ibwfszzvhif06/04/2025linisync Result Encounter [facility] External Department Unsolicited Santosh Marshall, DO [address] [place] [address] Social History Tobacco UseTypesPacks/DayYears UsedDateSmoking Tobacco: NeverAlcohol UseStandard Drinks/WeekCommentsYes0 (1 standard drink = 0.6 oz pure alcohol)occasional alcohol useEstimated Date of GhkkmggfOhhaqinmIxe69/03/2026ased on last menstrual period of 06/16/2024Sex and Gender InformationValueDate RecordedSex Assigned at BirthNot on fileLegal OgbDzveua76/15/2023 10:14 PM EDTGender IdentityNot on fileSexual OrientationNot on filedocumented as of this encounter Plan of Treatment Not on file documented as of this encounter Procedures Procedure NamePriorityDate/TimeAssociated DiagnosisCommentsHP CBC WITH PLATELET NO DZUFNVGFHSTWPavjdkl86/04/2025 3:05 AM EST [facility] DRUG SCREEN RAPID (URINE)Cucacrm3702/21/2025 2:35 AM EST documented in this encounter Results * (ABNORMAL) HMHP CBC WITH PLATELET NO DIFFERENTIAL (02/21/2025 3:05 AM EST) ComponentValueRef RangeTest MethodAnalysis TimePerformed AtPathologist SignatureTBH WBC11.4(H)4.0 - 11.0 10 3/uLTBHTBH RBC3.52(L)4.20 - 5.40 10 6/uL TBHTBH HGB10.6(L)12.0 - 16.0 g/dLTBHTBH HCT32.3(L)36.0 - 48.0 %TBHTBH MCV91.8 81.0 - 99.0 fLTBHTBH MCH30.126.7 - 34.0 pgTBHTBH MCHC32.829.9 - 35.2 g/dLTBH TBH RDW13.111.0 - 15.0 %TBHTBH GPW913776 - 450 10 3/uLTBHTBH MPV10.29.5 - 13.5 fLTBHSpecimen (Source)Anatomical Location / LateralityCollection Method / VolumeCollection TimeReceived Time02/21/2025 3:05 AM EST02/21/2025 3:09 AM EST Narrative [facility] - 02/21/2025 3:29 AM EST Authorizing ProviderResult TypeResult StatusCorey Joanna DOCLINISYNCFinal Result Performing OrganizationAddressCity/State/ZIP CodePhone Number [facility] * [facility] DRUG SCREEN RAPID (URINE) (02/21/2025 2:35 AM EST)ComponentValueRef Range Test MethodAnalysis TimePerformed AtPathologist SignatureCANNABINOID [...] Date Carrillo White MD [address] [place] [address] PCP - GeneralInternal Medicine11/29/22documented as of this encounter
--- OUTSIDE RECORDS SUMMARY | 2025-03-04 08:17 | XMS_ITS | Encounter Summary ---
Author Organization [facility] Address [address] [place] [address] Care Team Providers Care Concrete Block Molder Name Role Phone Carrillo White MD Primary Care Provider [phone] Encounter Details DateTypeDepartmentCare Team (Latest Contact Info)Tojdvnwgdvk95/05/2025linisync Result Encounter [facility]S External Department Unsolicited Santosh Marshall, DO [address] [facility] [facility] [place] [address] Social History Tobacco UseTypesPacks/DayYears UsedDateSmoking Tobacco: NeverAlcohol UseStandard Drinks/WeekCommentsYes0 (1 standard drink = 0.6 oz pure alcohol)occasional alcohol useEstimated Date of UodfntfsGgnlwqctOgx19/03/2026Based on last menstrual period of 06/16/2024Sex and Gender InformationValueDate RecordedSex Assigned at BirthNot on fileLegal AlgYhkdaa49/15/2023 10:14 PM EDTGender IdentityNot on fileSexual OrientationNot on filedocumented as of this encounter Plan of Treatment Not on file documented as of this encounter Procedures Procedure NamePriorityDate/TimeAssociated DiagnosisCommentsALL CBC WITH AUTO JRYUAecypbu48/05/2025 6:16 AM EST documented in this encounter Results * (ABNORMAL) ALL CBC WITH AUTO DIFF (02/22/2025 6:16 AM EST)ComponentValueRef RangeTest MethodAnalysis TimePerformed AtPathologist SignatureTBH WBC11.3(H) 4.0 - 11.0 10 3/uLTBHTBH RBC3.44(L)4.20 - 5.40 10 6/uLTBHTBH HGB10.3(L)12.0 - 16.0 g/dLTBHTBH HCT31.9(L)36.0 - 48.0 %TBHTBH MCV92.781.0 - 99.0 fLTBHTBH MCH 29.926.7 - 34.0 pgTBHTBH MCHC32.329.9 - 35.2 g/dLTBHTBH RDW13.311.0 - 15.0 % TBHTBH SUA011794 - 450 10 3/uLTBHTBH MPV10.19.5 - 13.5 fLTBHNEUTROPHILS PERCENT AUTO71.143.0 - 75.0 %TBHLYMPHOCYTES PERCENT AUTO19.8(L)20.5 - 60.0 % TBHMONOCYTES PERCENT AUTO6.91.7 - 12.0 %TBHTBH EO %1.10.9 - 7.0 %TBHBASOPHILS PERCENT AUTO0.60.2 - 2.0 %TBHIMMATURE GRANULOCYTES PCT AUTO0.50.0 - 0.5 %TBH NEUTROPHILS ABSOLUTE AUTO8.1(H)1.4 - 6.5 10 3/uLTBHLYMPHOCYTES ABSOLUTE AUTO 2.21.2 - 3.8 10 3/uLTBHMONOCYTES ABSOLUTE AUTO0.80.3 - 0.8 10 3/uLTBHTBH EO # 0.10.0 - 0.7 10 3/uLTBHBASOPHILS ABSOLUTE AUTO0.10.0 - 0.1 10 3/uLTBHIMMATURE GRANULOCYTES ABS AUTO0.06(H)0.00 - 0.03 10 3/uLTBHSpecimen (Source)Anatomical Location / LateralityCollection Method / VolumeCollection TimeReceived Time 02/22/2025 6:16 AM EST02/22/2025 6:29 AM EST Narrative [facility] - 02/22/2025 6:37 AM EST Authorizing ProviderResult TypeResult StatusCorey Joanna DOCLINISYNCFinal Result Performing OrganizationAddressCity/State/ZIP CodePhone Number [facility] documented in this encounter Visit Diagnoses Not on filedocumented in this encounter Care Teams Team MemberRelationshipSpecialtyStart DateEnd Date Carrillo White MD [address] [facility] [address] PCP - GeneralInternal Medicine11/29/22documented as of this encounter
--- OUTSIDE RECORDS SUMMARY | 2025-03-04 08:18 | XMS_ITS | Encounter Summary ---
Author Organization [facility] Address [address] [place] [address] Care Team Providers Care Repairer Resistance Welding Machines Name Role Phone Carrillo White MD Primary Care Provider [phone] Encounter Details DateTypeDepartmentCare Team (Latest Contact Info)Hamjuyqwnrw26/02/2025linisync Result Encounter [facility] External Department Unsolicited Shauna Marshall, DO [address] [place] [address] Social History Tobacco UseTypesPacks/DayYears UsedDateSmoking Tobacco: NeverAlcohol UseStandard Drinks/WeekCommentsYes0 (1 standard drink = 0.6 oz pure alcohol)occasional alcohol useEstimated Date of SpmvxwxbFgaykuyxBvb15/03/2026Based on last menstrual period of 06/16/2024Sex and Gender InformationValueDate RecordedSex Assigned at BirthNot on fileLegal TpkWlfjne13/15/2023 10:14 PM EDTGender IdentityNot on fileSexual OrientationNot on filedocumented as of this encounter Plan of Treatment Not on file documented as of this encounter Procedures Procedure NamePriorityDate/TimeAssociated DiagnosisCommentsUS OB BPP W NON-CSVLAQ1702/19/2025 2:15 PM EST documented in this encounter Results * US OB BPP W NON-STRESS (02/19/2025 2:15 PM EST)Anatomical Region LateralityModalityOtherSpecimen (Source)Anatomical Location / Laterality Collection Method / VolumeCollection TimeReceived Time02/19/2025 2:15 PM EST Narrative 02/19/2025 2:18 PM EST [facility] ?[address] ? [place] [address] ? Ultrasound Report ? Signed ? Patient: KERRY,YANA R ?MR#: [id number] ?? : 2000 ?Acct:[id number] ?? Age/Sex: 25 / F ?ADM Date: 02/19/25 ?? Loc: [facility] ??252-1 ? Attending Dr: Shauna Marshall D.O. ? Ordering Physician: Shauna Marshall D.O. ?? Date of Service: 02/19/25 ?? Procedure(s): US OB BPP w non-stress ?? Accession Number(s): [id number] ? cc: Shauna Marshall D.O.; Physician,Non-Staff M.Doris. ? [facility] ? [address] ? [place] [address] ? Patient Name: ?? YANA PAYNE ? MRN: [facility]:[id number] ? date: 2000 ?Sex: F ?? Assigned Patient Location: [facility] ?? Current Patient Location: [facility] ?? Accession/Order Number: [id number] ?? Exam Date: 02/19/2025 ??13:08 ?Report Date: 02/19/2025 ??14:15 ? At the request of: ?? SHAUNA ??JOANNA ??DO ? Procedure: ??US OB BPP w non-stress ? Biophysical profile. ? Reason for exam: Thyroid disease ? COMPARISON: BPP 02/12/2025 ? TECHNIQUE: Transabdominal imaging of the gravid uterus was obtained. ? FINDINGS: The broker associate reports a BPP of 8 out of 8. ??CALVIN is normal at 24.96 ?? cm. ?? heart rate 153 bpm. ? US/ OB BPP w non-stress ?? IMPRESSION: BPP 8 out of 8. ? Borderline polyhydramnios. ? Impression dictated by: Hermelindo Rivero Jr. DGennyOGenny ??02/19/2025 2:15 PM ? Dictation Location: RADIO-PC-27 ? Electronically authenticated by: [id number] ??Y ?? Date: 02/19/2025 ??14:15 ? Dictated By: ?Hermelindo Rivero M.D. ? Signed By: ?02/19/25 1418 ? DD/ 1415 ? TD/TT: ? Rate Reviewer: Procedure Note Radiology, Radiologist, - 02/19/2025 [place] [address] Ultrasound Report Signed Patient: YANA PAYNE RMR#: [id number] : 2000Acct:[id number] Age/Sex: 25 / FADM Date: 02/19/25 Loc: [facility] 252-[address]: Shauna Marshall D.O. Ordering Physician: Shauna Marshall D.O. Date of Service: 02/19/25 Procedure(s): US OB BPP w non-stress Accession Number(s): [id number] cc: Shauna Marshall D.O.; Physician,Non-Staff Ravi The [address] [address] Patient Name: YANA PAYNE MRN: [facility]:[id number] date: 2000 Sex: F Assigned Patient Location: [facility] Current Patient Location: [facility] Accession/Order Number: [id number] Exam Date: 02/19/2025 13:08 Report Date: 02/19/2025 14:15 At the request of: SHAUNA MARSHALL DO Procedure: US OB BPP w non-stress Biophysical profile. Reason for exam: Thyroid disease COMPARISON: BPP 02/12/2025 TECHNIQUE: Transabdominal imaging of the gravid uterus was obtained. FINDINGS: The broker associate reports a BPP of 8 out of 8. CALVIN is normal at24.96 cm. heart rate 153 bpm. US/US OB BPP w non-stress IMPRESSION: BPP 8 out of 8. Borderline polyhydramnios. Impression dictated by: Hermelindo Rivero Jr., D.O. 02/19/2025 2:15 PM Dictation Location: [place] [address] Electronically authenticated by: [id number] Y Date: 4:15 Dictated By: Hermelindo Rivero M.D. Signed By:02/19/25 1418 DD/ 1415 TD/TT: Rate Reviewer: Authorizing ProviderResult TypeResult StatusCorey Joanna DOCLINISYNC IMAGINGFinal Result documented in this encounter Visit Diagnoses Not on filedocumented in this encounter Care Teams Team MemberRelationshipSpecialtyStart DateEnd Date Carrillo White MD [address] [facility] [place] [address] PCP - GeneralInternal Medicine11/29/22documented as of this encounter
--- OUTSIDE RECORDS SUMMARY | 2025-03-04 08:18 | XMS_ITS | Encounter Summary ---
Author Organization [facility] Address [address] [place] [address] Care Team Providers Care Inclusion Intern Name Role Phone Carrillo White MD Primary Care Provider [phone] Encounter Details DateTypeDepartmentCare Team (Latest Contact Info)Cipyyhdmirh63/01/2025Telephone [facility] [address] [place] [address] [place] [address] Ann Ma MA Social History Tobacco UseTypesPacks/DayYears UsedDateSmoking Tobacco: NeverAlcohol UseStandard Drinks/WeekCommentsYes0 (1 standard drink = 0.6 oz pure alcohol)occasional alcohol useEstimated Date of NhzepcwuNbboiavnFim66/03/2026ased on last menstrual period of 06/16/2024Sex and Gender InformationValueDate RecordedSex Assigned at BirthNot on fileLegal VmfKoyjag44/15/2023 10:14 PM EDTGender IdentityNot on fileSexual OrientationNot on filedocumented as of this encounter Miscellaneous Notes * Telephone Encounter - Ann Ma MA - 02/20/2025 11:46 AM EST Pt called in stating wrong fax# was given. Note resent to [phone]. * Telephone Encounter - Ann Ma MA - 02/20/2025 10:[address] Marshall approved time off until about 36 weeks. States this may be subject to change depending onpts status and whether she want to be off for the remainder of her . They will discuss at next appt on 02/21/2025. Letter made and faxed to her work per patient request F#[phone] * Telephone Encounter - Ann Ma MA [...] documented in this encounter Plan of Treatment Not on file documented as of this encounter Visit Diagnoses Not on filedocumented in this encounter Care Teams Team MemberRelationshipSpecialtyStart DateEnd Date Carrillo White MD [address] [place] [address] PCP - GeneralInternal Medicine11/29/22documented as of this encounter
== END 2025-03-04 14:02 | disposition home or self-care (01) ==
LOC: FBCO 08:15
PROVIDERS: Visit Provider Obstetrics & Gynecology
DX: Z39.1 Encounter for care and examination of lactating mother (principal)
CPT/HCPCS: G0463

== ENCOUNTER 2025-03-07 12:30 | Emergency (ER) | payer BC, SELFPAY ==
--- OUTSIDE RECORDS SUMMARY | 2025-03-04 11:10 | XMS_ITS | Encounter Summary ---
Author Organization [facility] Address [address] [place] [address] Care Team Providers Care Design Maintenance Engineer Name Role Phone Carrillo White MD Primary Care Provider [phone] Reason for Visit * ReasonCommentsPostpartum Care Encounter Details DateTypeDepartmentCare Team (Latest Contact Info)Tsvmexrtozf86/15/2025 11:10 AM ESTPostpartum Visit UMESH Jackman OBGYJessica [address] [facility] [place] [address] Erum Guidry PA [address] [facility] [address] [place], [facility] Sore on leg; Phlebitis Social History Tobacco UseTypesPacks/DayYears UsedDateSmoking Tobacco: NeverAlcohol UseStandard Drinks/WeekCommentsYes0 (1 standard drink = 0.6 oz pure alcohol)occasional alcohol useEstimated Date of JmsxeshiOajibujvPom66ased on last menstrual period of 06/16/2024Sex and Gender InformationValueDate RecordedSex Assigned at BirthNot on fileLegal RnxGhtxjc51/15/2023 10:14 PM EDTGender IdentityNot on fileSexual OrientationNot on filedocumented as of this encounter Last Filed Vital Signs Vital SignReadingTime TakenCommentsBlood Itlmbzin619/5803/04/2025 11:28 AM EST Pulse--Temperature--Respiratory Rate--Oxygen Saturation--Inhaled Oxygen Concentration--Uqfebz75.2 kg (146 lb)03/04/2025 11:28 AM ESTHeight--Body Mass Index24.309/01/2023 3:23 PM EDTdocumented in this encounter Progress Notes * LIS Man - 03/04/2025 11:10 AM EST Reason for Appointment: Patient ID: Evelin Church is a 25 y.o. female who presents for Care Patient presents today for Acute Visit. MEDICATIONS Current Outpatient Medications Medication Instructions cephalexin (KEFLEX) 500 mg, Oral, 3 times daily levothyroxine (SYNTHROID) 125 mcg, Oral, Daily before [...] soft. Musculoskeletal: General: Normal range of motion. Comments: Small varicosity noted across the left knee, mild tenderness and redness to skin consistent with thrombophlebitis Neurological: General: No focal deficit present. Mental Status: She is alert and oriented to person, place, and time. Skin: General: Skin is warm. Psychiatric: Mood and Affect: Mood normal. Behavior: Behavior normal. Thought Content: Thought content normal. Judgment: Judgment normal. Vitals and nursing note reviewed. Vitals: Estimated body mass index is 24.3 kg/m?? as calculated from the following: Height as of 11/29/22: 5' 5 . Weight as of this encounter: 146 lb. BP: 106/58 Patient's last menstrual period was 06/16/2024. Assessment/Plan ICD-10-CM 1. Sore on leg L98.9 cephalexin (Keflex) 500 MG capsule 2. Phlebitis I80.9 cephalexin (Keflex) 500 MG capsule Assessment/Plan Patient presents for small superficial area of redness to the left knee consistent with thrombophlebitis. Pt is currently breast feeding. She denies injury or does not remember hitting the area. She has known varicosity but had not noticed any redness to the specific area until this past weekend. By exam, it appears to be superfical thrombophlebitis. Pt had put ice and yesterday and did seem to help. Pt told to continue to ice and we will send in keflex to cover cellulitis. Pt vital signs are stable, we will follow up as needed Documented by LIS Man on behalf of: LIS Man documented in this encounter Plan of Treatment Not on file documented as of this encounter Visit Diagnoses Diagnosis Sore on leg Phlebitis Phlebitis and thrombophlebitis of unspecified site documented in this encounter Care Teams Team MemberRelationshipSpecialtyStart DateEnd Date Carrillo White MD [address] [place] [address] PCP - GeneralInternal Medicine11/29/22documented as of this encounter
[2025-03-07 12:48] VITALS: BP 119/89; PULSE 128; TEMP 36.6; O2SAT 98; BMI 24.1
[2025-03-07 13:19] VITALS: PULSE 82
[2025-03-07 13:20] LABS: Hematocrit 39.0 % (36.0-48.0); Hemoglobin 12.6 g/dL (12.0-16.0); Immature Granulocytes Abs Auto 0.01 10^3/uL (0.00-0.03); Immature Granulocytes Pct Auto 0.2 % (0.0-0.5); Lymphocytes Absolute Auto 1.8 10^3/uL (1.2-3.8); Mean Corpuscular HGB Conc 32.3 g/dL (29.9-35.2); Mean Corpuscular Hemoglobin 29.7 pg (26.7-34.0); Mean Corpuscular Volume 92.0 fL (81.0-99.0); Platelet Count 335 10^3/uL (150-450); Red Blood Count 4.24 10^6/uL (4.20-5.40); White Blood Count 5.7 10^3/uL (4.0-11.0)
--- OUTSIDE RECORDS SUMMARY | 2025-03-07 13:25 | XMS_ITS | Clinical Summary ---
Author Organization [employer] [facility] Address [id number] [address] [place] [address] Care Team Providers Care Bedspring Assembler Name Role Phone Carrillo White MD Primary Care Provider [phone] Allergies No known active allergies Medications MedicationSigDispense QuantityRefillsLast FilledStart DateEnd DateStatus PNV no.95/ferrous fum/folic ac ( ORAL) Take by mouth in the morning.Active FREESTYLE LITE METER kit See Admin Instructions.03/26/2021ctive freestyle 28 gauge lancets Use daily as directed & as yfyqcp0103/26/2021ctive acetaminophen (TYLENOL EXTRA STRENGTH) 500 mg tablet [...] the morning.Active Active Problems ProblemNoted DateDiagnosed DateLow-lying /18/2025History of prior with IUGR okrkzcp7711/05/2024Family history of oqknqg8911/05/2024History of gestational diabetes in prior , currently cozmiszj77/18/2025History of prior with short cervix, currently onezlhhf60/18/2025History of premature rupture of /18/2025Hypothyroidism affecting fohzfwwrc36/18/2021 Overview (05/19/2021): 03/03/21 TSH 1.91 04/11 TSH not completed () On levothyroxine 125mcg Estimated Date of AozmxvcvBpjfbqxiXms17/03/2026ased on last menstrual period of 06/16/2024 Resolved Problems ProblemNoted DateDiagnosed DateResolved DatePreterm premature rupture of jdrkjydnb68Diet controlled gestational diabetes mellitus (GDM) in third qmdngzayd79Short cervix during in third aqjdvcjsr60 Overview (05/19/2021): Vaginal progesterone ANCS 03/03/21 and 03/04/21, rescue 05/12/21 and 05/13/21. laborPreterm uterine contractions in third trimester, xoxcxvwjde70Pregnancy affected by growth thjzqsmhwbu11 Overview (05/19/2021): 05/05/21: EFW 3%, AC 8%, nl DVP. Normal dopplers Encounters DateTypeDepartmentCare MuyeTxfwamhohbm85/23/2025 2:15 PM EDT - 12/11/2024 11:59 PM EDTHospital Encounter [facility] [address] [place] [address] 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 trimester; History of prior with IUGR ; History of premature rupture of membranes Discharge Disposition: Home12/11/2024Travelfrom Last 3 Months Immunizations ImmunizationAdministration DatesNext FdhEeny1605/26/2021 Family History Medical HistoryRelationNameCommentsDiabetesBrotherJordanDiabetesFather HypertensionFatherColon cancerMaternal GrandmotherEllenDiabetesMaternal GrandmotherEllenHypertensionMaternal GrandmotherEllenDepressionMotherTina DiabetesMotherTinaMental illnessMotherTinaStomach cancerMotherTinaBreast cancer Paternal Aunt 1SueMiscarriages / StillbirthsPaternal Aunt 2AuntAsthmaPaternal GrandfatherRichardDiabetesPaternal GrandfatherRichardHypertensionPaternal GrandfatherRichardBreast cancerPaternal GrandmotherMarilynColon cancerPaternal GrandmotherMarilynRelationNameStatusCommentsBrotherJordanFatherMaternal GrandmotherEllenMotherTinaDeceasedPaternal Aunt 1SuePaternal Aunt 2AuntPaternal GrandfatherRichardPaternal GrandmotherMarilyn Social History Tobacco UseTypesPacks/DayYears UsedDateSmoking Tobacco: NeverSmokeless Tobacco: NeverAlcohol UseStandard Drinks/WeekCommentsNot Currently0 (1 standard drink = 0.6 oz pure alcohol)[place] Depression ScaleAnswerDate Recorded [place] Depression Scale Kqavr33806/04/2021The thought of harming myself has occurred to me.Never06/04/2021Hunger ScreeningAnswerDate Recorded Within the past 12 months we worried whether our food would run out before we got money to buy more.Never True11/05/2024Within the past 12 months the food we bought just didn't last and we didn't have money to get more.Never True 11/05/2024Estimated Date of TrhyudalGzcxdromRuv00/03/2026ased on last menstrual period of 06/16/2024Sex and Gender InformationValueDate RecordedSex Assigned at BirthNot on fileLegal IqsPknunp44/15/2021 10:50 AM EDTGender IdentityNot on fileSexual OrientationNot on file Last Filed Vital Signs Vital SignReadingTime TakenCommentsBlood Vimpxtbb61/5808 11:51 AM EDT Ipyye278411/05/2024 11:51 AM LNUAljpdhwstxd30.9 ??C (98.4 ??F)06/04/2021 11:19 AM EDTRespiratory Goas954006/01/2021 9:10 AM EDTOxygen Ioyoiszeox84%05/19/2021 10:27 AM ESTInhaled Oxygen Concentration--Dmgcum87.8 kg (138 lb 6.4 oz)11/05/2024 11:51 AM RPLKkrnoi905.1 cm (5' 5 )11/05/2024 11:51 AM EDTBody Mass Index23.03 11/05/2024 11:51 AM EDT Plan of Treatment Health MaintenanceDue DateLast DoneCommentsPap Smear2019Depression Rxmqkbogy17/Influenza Ijumexk41/02/2009RSV ( or age 60+ yrs) (1 - Risk 1-dose series)01/26/2025dult BMI Screening /Tobacco Muzyspkyi27DTaP,Tdap and Td Vaccines (8 - Td or Tdap)/10/2021, 06/22/2010, 10/16/2003, Additional history exists Medical Devices Not on file Procedures Procedure NamePriorityDate/TimeAssociated DiagnosisCommentsUS [facility] OB FOLLOW-UP, 1 KEURNDdmmixq05/23/2025 3:04 PM EDT 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 trimester History of prior with IUGR History of premature rupture of membranes from Last 3 Months Results * [facility] OB FOLLOW-UP, 1 FETUS (12/11/2024 3:04 PM EDT)Anatomical Region LateralityModalityOB-GYNUltrasoundSpecimen (Source)Anatomical Location / LateralityCollection Method / VolumeCollection TimeReceived Time12/11/2024 2:27 PM EDT Narrative 12/12/2024 1:35 PM EDT NAME: ??KERRY MILLAN : 2000 SEX: F Accession Number: [id number] ORDERING PHYSICIAN: ANTOINETTE BLAKELY REFERRING PHYSICIAN: SHAUNA NAIR Coding Procedures ? 71181: Ultrasound, uterus, real time with image documentation, follow up,transabdominal ? approach per fetus Indication Screening for follow-up survey, History of prior with gestational diabetes, History of prior with IUGR, History of prior with delivery, Hypothyroidism. History OB History ? 2. Para 1 ? X1W5L3Y5 Current Cell free DNA ?low risk analysis [...] (oz) ? 11 oz EFW by: ?Hadlock (TNM-VA-CC-FL) Extended Tibia ??40.0 mm 25w 2d 39% Joanie Wood Cutter ? 2.9 mm CM ? 6.9 mm [...] view. RVOT view. LVOT view. 3-vessel view. 0-xbrpfh-asejkin view. Situs. Aortic arch view. ? Bicaval [...] MVP measures 5 cm. Recommendations Please see [facility] recommendations from prior clinical and/or ultrasound report documentation. Subsequent follow up or other follow up as clinically determined by primary OB provider unless otherwise specified by [facility]. Results forwarded to ordering provider so they can follow up with the patient as necessary. Procedure Note Antoinette Blakely MD - 12/12/2024 NAME: KERRY MILLAN : 2000 SEX: F Accession Number: [id number] ORDERING PHYSICIAN: ANTOINETTE BLAKELY REFERRING PHYSICIAN: SHAUNA NAIR Coding Procedures 37098: Ultrasound, uterus, real time with image documentation, follow up, transabdominal approach per fetus Indication Screening for follow-up survey, History of prior withgestational diabetes, History of prior with IUGR, History of prior with delivery, Hypothyroidism. History OB History 2. Para 1 D9P5X4C6 Current Cell free DNA low risk analysis [...] EFW (oz) 11 oz EFW by: Hadlock (IIM-NF-KO-FL) Extended Tibia 40.0 mm 25w 2d 39% Joanie Wood Cutter 2.9 mm CM 6.9 mm 70% Nicolaides [...] view. RVOT view. LVOT view. 3-vessel view. 1-diyccw-peuknfk view. Situs. Aortic arch view. Bicaval view. [...] MVP measures 5 cm. Recommendations Please see [facility] recommendations from prior clinical and/or ultrasoundreport documentation. Subsequent follow up or other follow up as clinically determined byprimary OB provider unless otherwise specified by [facility]. Results forwarded to ordering provider so they can follow up with thepatient as necessary. Authorizing ProviderResult TypeResult StatusAntoinette Blakely MDPHOEBE WORTH MEDICAL [facility]ENTER ORDERABLESFinal Result from Last 3 Months Insurance Advance Directives * Full Code (Latest Code Status on File) Date ActivatedDate InactivatedComments05/30/2021 7:15 AM06/01/2021 2:55 PM * Full Code Date ActivatedDate InactivatedComments05/12/2021 1:10 PM2 2:16 PM * Full Code Date ActivatedDate InactivatedComments04/21/2021 7:00 PM2 1:57 PM * Full Code Date ActivatedDate AoeusirvyarKtpoccvb31/14/2021 5:01 PM03/26/2021 7:46 PM Care Teams Team MemberRelationshipSpecialtyStart DateEnd Date Carrillo White MD PCP - GeneralInternal Medicine04/07/21
--- OUTSIDE RECORDS SUMMARY | 2025-03-07 13:25 | XMS_ITS | Encounter Summary ---
Author Organization [facility] Address [address] [place] [address] Care Team Providers Care Architectural Designer Name Role Phone Carrillo White MD Primary Care Provider [phone] Encounter Details DateTypeDepartmentCare Team (Latest Contact Info)Dmqimbpvska79/05/2025linisync Result Encounter [facility] External Department Unsolicited Santosh Marshall, DO [address] [facility] [address] [facility] [address] [facility] [place] [address] Social History Tobacco UseTypesPacks/DayYears UsedDateSmoking Tobacco: NeverAlcohol UseStandard Drinks/WeekCommentsYes0 (1 standard drink = 0.6 oz pure alcohol)occasional alcohol useEstimated Date of BtkegdovSaxablriRrd84/03/2026Based on last menstrual period of 06/16/2024Sex and Gender InformationValueDate RecordedSex Assigned at BirthNot on fileLegal EawKkcccs85/15/2023 10:14 PM EDTGender IdentityNot on fileSexual OrientationNot on filedocumented as of this encounter Plan of Treatment Not on file documented as of this encounter Procedures Procedure NamePriorityDate/TimeAssociated DiagnosisCommentsALL CBC WITH AUTO IGNNFyghjwk41/05/2025 6:16 AM EST documented in this encounter Results * (ABNORMAL) ALL CBC WITH AUTO DIFF (02/22/2025 6:16 AM EST)ComponentValueRef RangeTest MethodAnalysis TimePerformed AtPathologist SignatureTBH WBC11.3(H) 4.0 - 11.0 10 3/uLTBHTBH RBC3.44(L)4.20 - 5.40 10 6/uLTBHTBH HGB10.3(L)12.0 - 16.0 g/dLTBHTBH HCT31.9(L)36.0 - 48.0 %TBHTBH MCV92.781.0 - 99.0 fLTBHTBH MCH 29.926.7 - 34.0 pgTBHTBH MCHC32.329.9 - 35.2 g/dLTBHTBH RDW13.311.0 - 15.0 % TBHTBH SLE811382 - 450 10 3/uLTBHTBH MPV10.19.5 - 13.5 [...] Joanna DOCLINISYNCFinal Result Performing OrganizationAddressCity/State/ZIP CodePhone Number [facility] documented in this encounter Visit Diagnoses Not on filedocumented in this encounter Care Teams Team MemberRelationshipSpecialtyStart DateEnd Date Carrillo White MD [address] [facility] [place] [address] PCP - GeneralInternal Medicine11/29/22documented as of this encounter
--- OUTSIDE RECORDS SUMMARY | 2025-03-07 13:25 | XMS_ITS | Encounter Summary ---
Author Organization [facility] Address [address] [facility] [place] [address] Care Team Providers Care Milled Rubber Tender Name Role Phone Carrillo White MD Primary Care Provider [phone] Encounter Details DateTypeDepartmentCare Team (Latest Contact Info)Amrxxxtakeo85/18/2025Telephone [facility] [address] [place] [place] [address] Erum Guidry PA [address] [place] [address] Social History Tobacco UseTypesPacks/DayYears UsedDateSmoking Tobacco: NeverAlcohol UseStandard Drinks/WeekCommentsYes0 (1 standard drink = 0.6 oz pure alcohol)occasional alcohol useEstimated Date of YfmquvrtPkkosytkHlo87/03/2026ased on last menstrual period of 06/16/2024Sex and Gender InformationValueDate RecordedSex Assigned at BirthNot on fileLegal XpdWsontf15/15/2023 10:14 PM EDTGender IdentityNot on fileSexual OrientationNot on filedocumented as of this encounter Miscellaneous Notes * Telephone Encounter - Carmita Tapia LPN - 03/07/2025 10:09 AM EST I was in on Tuesday and seen Erum about some varicose veins in my knee. She gave me some antibiotics and, you know, told me to do ice or heat in where compression socks I have been doing all of that, and the pain in my knee is been worse and also the spot that was red has kind of moved it was on the top of my knee and now it is kind of moved to the side of my knee. So, I was just a little worried about it and like I said, it is been more painful, especially when I am trying to walk since it is onmy knee, I did not know if I should come in and get checked out again at the office or if I needed to go to the hospital or something like that, so I just wanted some advice. My phone number is . Thank you, desi weeks. Patient was called and she was made aware to go in and be evaluated as we are in office until 1130 today. PVU. documented in this encounter Plan of Treatment Not on file documented as of this encounter Visit Diagnoses Not on filedocumented in this encounter Care Teams Team MemberRelationshipSpecialtyStart DateEnd Date Carrillo White MD [address] [place] [address] PCP - GeneralInternal Medicine11/29/22documented as of this encounter
--- OUTSIDE RECORDS SUMMARY | 2025-03-07 13:25 | XMS_ITS | Clinical Summary ---
Author Organization [facility] Address [address] [place] [address] Care Team Providers Care Food And Beverage Manager Name Role Phone Carrillo White MD Primary Care Provider [phone] Allergies No known active allergies Medications MedicationSigDispense QuantityRefillsLast FilledStart DateEnd DateStatus levothyroxine (Synthroid) 125 MCG tablet Indications:Thyroid diseaseTake 1 tablet (125 mcg) by mouth in the morning. Take before meals. 30 tablet 1106//659620/6Active MV-Min-Fe Fum-FA-DHA ( 1 PO) Take by mouthActive cephalexin (Keflex) 500 MG capsule Indications:Sore on leg,PhlebitisTake 1 capsule (500 mg) by mouth in the morning and 1 capsule (500 mg) in the evening and 1 capsule(500 mg) before bedtime. Do all this for 7 days. 21 capsule 512/5Active Active Problems ProblemNoted DateDiagnosed DateThyroid vucwlzj9701/28/2025History of prior with IUGR ktkedey1001/28/2025Estimated Date of DeliveryComments Yes03/23/2025ased on last menstrual period of 06/16/2024 Encounters DateTypeDepartmentCare JrxjQlvdtnnebaw42/18/2025[place] [phone] Erum Guidry PA 03/04/2025 11:10 [place] [address] Erum Guidry PA Sore on leg; Jklzvocwx00/05/2025Clinisync Result Encounter [facility] External Department Unsolicited Joanna, Shauna, DO 5Clinisync Result Encounter [facility]S External Department Unsolicited Joanna, Shanua, DO 5Clinisync Result Encounter [facility] External Department Unsolicited Joanna, Shauna, DO 02/18/2025Telephone [facility] Augustina Giles [facility] [place] [phone] Ann Ma MA 02/12/2025linisync Result Encounter [facility]S External Department Unsolicited Joanna, Shauna, DO 02/12/2025linisync Result Encounter [facility]S External Department Unsolicited Joanna, Shauna, DO 02/05/2025linisync Result Encounter [facility]S External Department Unsolicited Joanna, Shauna, DO 02/05/2025linisync Result Encounter [facility]OMS External Department Unsolicited Abril Stone NP 02/04/2025 8:00 AM ESTAncillary Procedure [facility] [place] [phone] Thyroid disease; History of prior with IUGR ; Hypothyroidism, unspecified type01/28/2025 8:30 AM ESTRoutine NOMDwain Giles [facility] [place] [address] Shauna Marshall, DO Third trimester ([facility]); 32 weeks gestation of ([facility]); Thyroid disease; History of prior with IUGR ; Hypothyroidism, unspecified type01/28/2025amboo flowsheet NOMDwain [facility]iles [facility] [place] [address] Shauna Marshall, DO 01/14/2025 8:30 [place] [phone] Shauna Marshall, DO Third trimester ([facility]); 30 weeks gestation of ([facility])5Bamboo flowsheet [facility] [place] [address] Shauna Marshall, DO 12/31/2024 11:00 AM EDTRoutine [facility] Augustina Giles [facility] [place] [phone] Shauna Marshall, DO Third trimester ([facility]); 28 weeks gestation of ([facility])12/31/2024 10:30 AM EDTAncillary Procedure [facility] August[place] [phone] Size of fetus inconsistent with dates in second trimester ([facility])12/12/2024 Abstract [facility] Augustina Giles [facility] [place] [phone] Shauna Marshall, DO 5Clinisync Result Encounter NOMS External Department Unsolicited Erum Guidry PA 12/11/2024Telephone [facility] Augustina Giles [facility] [place] [phone] Erum Guidry PA 5Clinisync Result Encounter NOMS External Department Unsolicited Erum Guidry PA 12/10/2024 10:00 AM EDTRoutine [facility] Augustina Giles [facility] [place] [address] Erum Guidry PA Size of fetus inconsistent with dates in second trimester ([facility]) (Primary Dx); Second trimester ([facility]); 25 weeks gestation of ([facility]); Diabetes mellitus dufnkrarh60/22/2025Bamboo flowsheet [facility] Augustina Giles [facility] [place] [address] Erum Guidry, PA from Last 3 Months Family History [...] ValueDate RecordedSex Assigned at BirthNot on fileLegal HhuDloffw2023 10:14 PM EDTGender IdentityNot on fileSexual OrientationNot on file Last Filed Vital Signs Vital SignReadingTime TakenCommentsBlood Bvoareps215/5803/04/2025 11:28 AM EST Pulse--Temperature--Respiratory Rate--Oxygen Saturation--Inhaled Oxygen Concentration--Cyklkz56.2 kg (146 lb)03/04/2025 11:28 AM DGMDvcpad802.1 cm (5' 5 )11/29/2022 3:23 PM EDTBody Mass Index24.309 3:23 PM EDT Plan of Treatment Not on file Procedures Procedure NamePriorityDate/TimeAssociated DiagnosisCommentsALL CBC WITH AUTO KCQPDsinsdw08/05/2025 6:16 AM EST HMHP CBC WITH PLATELET NO UJSYRNGIJGWNNywncmt12/04/2025 3:05 AM EST TB[facility] DRUG SCREEN RAPID (URINE)Zodoxlz4602/21/2025 2:35 AM EST US OB BPP W NON-EAGCLA5802/19/2025 2:15 PM EST US OB BPP W NON-YSJPPW9502/12/2025 8:46 PM EST ALL CBC WITH AUTO XFSFQxtixoe61/25/2025 4:15 PM EST [facility] DRUG SCREEN RAPID (URINE)Tmqwnuy6002/12/2025 4:00 PM EST [facility] UA (CLEAN/CATCH) ENTRY LEVEL MARKETING REPRESENTATIVE/MICRO IF IND.Ygfhslb5702/12/2025 4:00 PM EST US OB BPP W NON-JKYMZW8102/05/2025 7:47 PM EST ALL THYROID STIM JKCVKUNTaazrcb63/18/2025 2:42 PM EST US OB FOLLOW UP TRANSABDOMINAL VSUFVMLPYpbjghy98/17/2025 8:26 AM EST Thyroid disease History of prior with IUGR Hypothyroidism, unspecified type POCT URINALYSIS ZSEDDMAMUdyeyql02/10/2025 8:40 AM EST Third trimester ([facility]) POCT URINALYSIS CZXBSCIZJiachez30/27/2025 8:40 AM EDT Third trimester ([facility]) POCT URINALYSIS WTQUUEERRcquewb96/13/2025 11:29 AM EDT Third trimester ([facility]) US OB FOLLOW UP TRANSABDOMINAL MHHIIFTUUkyeeox92/13/2025 10:55 AM EDT Size of fetus inconsistent with dates in second trimester ([facility]) GLUCOSE TOLERANCE 3 QAHHGapgibs24/24/2025 8:42 AM EDT ALL THYROID STIM DRUKIAUNzebupp22/23/2025 9:34 AM EDT GLUCOSE 1 HPGIEobiunv88/23/2025 9:34 AM EDT ALL CBC WITH AUTO QOPNTyfwujz21/23/2025 9:34 AM EDT POCT URINALYSIS TKMZYKNWBibpdds83/22/2025 10:28 AM EDT Second trimester ([facility]) from Last 3 Months Results * (ABNORMAL) [...] - 35.2 g/dLTBHTBH RDW13.311.0 - 15.0 %TBHTBH OLI994535 - 450 10 3/uLTBHTBH MPV10.19.5 - 13.5 [...] Joanna DOCLINISYNCFinal Result Performing OrganizationAddressCity/State/ZIP CodePhone Number [facility] * (ABNORMAL) HMHP CBC WITH PLATELET NO DIFFERENTIAL (02/21/2025 3:05 AM EST) ComponentValueRef RangeTest MethodAnalysis TimePerformed AtPathologist SignatureTBH WBC11.4(H)4.0 - 11.0 10 3/uLTBHTBH RBC3.52(L)4.20 - 5.40 10 6/uL TBHTBH HGB10.6(L)12.0 - 16.0 g/dLTBHTBH HCT32.3(L)36.0 - 48.0 %TBHTBH MCV91.8 81.0 - 99.0 fLTBHTBH MCH30.126.7 - 34.0 pgTBHTBH MCHC32.829.9 - 35.2 g/dLTBH TBH RDW13.111.0 - 15.0 %TBHTBH HHU970755 - 450 10 3/uLTBHTBH MPV10.29.5 - 13.5 fLTBHSpecimen (Source)Anatomical Location / LateralityCollection Method / VolumeCollection TimeReceived Time02/21/2025 3:05 AM EST02/21/2025 3:09 AM EST Narrative [facility] - 02/21/2025 3:29 AM EST Authorizing ProviderResult TypeResult StatusCorey Joanna DOCLINISYNCFinal Result Performing OrganizationAddressCity/State/ZIP CodePhone Number [facility] * [facility] DRUG SCREEN RAPID (URINE) (02/21/2025 2:35 AM [...] DOCLINISYNCFinal Result Performing OrganizationAddressCity/State/ZIP CodePhone Number [facility] * OB BPP W NON-STRESS (02/19/2025 2:15 PM EST) Only the most recent of3 resultswithin the time period is included. Anatomical RegionLateralityModalityOtherSpecimen (Source)Anatomical Location / LateralityCollection Method / VolumeCollection TimeReceived Time02/19/2025 2:15 PM EST Narrative 02/19/2025 2:18 PM EST [facility] ?[address] ? [place] [address] ? Ultrasound Report ? Signed ? Patient: YANA PAYNE ?MR#: [id number] ?? : 2000 ?Acct:[id number] ?? Age/Sex: 25 / F ?ADM Date: 02/19/ ?? Loc: FBC ??252-1 ? Attending Dr: Shauna Marshall D.O. ? Ordering Physician: Shauna Marshall D.O. ?? Date of Service: 02/19/25 ?? Procedure(s): US OB BPP w non-stress ?? Accession Number(s): [id number] ? cc: Shauna Marshall D.O.; Physician,Non-Staff Ravi ? [facility] ? [address] ? [place] [address] ? Patient Name: ?? YANA PAYNE ? MRN: [facility]:[id number] ? date: 2000 ?Sex: F ?? Assigned Patient Location: [facility] ?? Current Patient Location: [facility] ?? Accession/Order Number: [id number] ?? Exam Date: 02/19/2025 ??13:08 ?Report Date: 02/19/2025 ??14:15 ? At the request of: ?? SHAUNA ??JOANNA ??DO ? Procedure: ??US OB BPP w non-stress ? Biophysical profile. ? Reason for exam: Thyroid disease ? COMPARISON: BPP 02/12/2025 ? TECHNIQUE: Transabdominal imaging of the gravid uterus was obtained. ? FINDINGS: The technical developer reports a BPP of 8 out of 8. ??CALVIN is normal at 24.96 ?? cm. ?? heart rate 153 bpm. ? US/US OB BPP w non-stress ?? IMPRESSION: BPP 8 out of 8. ? Borderline polyhydramnios. ? Impression dictated by: Hermelindo [place] Jr., D.OGenny ??02/19/2025 2:15 PM ? Dictation Location: [place] [address] ? Electronically authenticated by: [id number] ??Y ?? Date: 02/19/2025 ??14:15 ? Dictated By: ?Hermelindo [place] M.D. ? Signed By: ?02/19/25 1418 ? DD/ 1415 ? TD/TT: ? Appraiser Auditor: Procedure Note Radiology, Radiologist, MD - 02/19/[address] [address] Ultrasound Report Signed Patient: YANA PAYNE RMR#: [id number] : 2000Acct:[id number] Age/Sex: 25 / FADM Date: 02/19/25 Loc: FBC 252-[address]: Shauna Marshall D.O. Ordering Physician: Shauna Marshall D.O. Date of Service: 02/19/25 Procedure(s): US OB BPP w non-stress Accession Number(s): [id number] cc: Shauna Marshall D.O.; Physician,Non-Staff Ravi [place] [address] Patient Name: YANA PAYNE MRN: [facility]:[id number] date: 2000 Sex: F Assigned Patient Location: [facility] Current Patient Location: [facility] Accession/Order Number: [id number] Exam Date: 02/19/2025 13:08 Report Date: 02/19/2025 14:15 At the request of: SHAUNA MARSHALL DO Procedure: US OB BPP w non-stress Biophysical profile. Reason for exam: Thyroid disease COMPARISON: BPP 02/12/2025 TECHNIQUE: Transabdominal imaging of the gravid uterus was obtained. FINDINGS: The technical developer reports a BPP of 8 out of 8. CALVIN is normal at24.96 cm. heart rate 153 bpm. US/US OB BPP w non-stress IMPRESSION: BPP 8 out of 8. Borderline polyhydramnios. Impression dictated by: Hermelindo [place] Jr., D.O. 02/19/2025 2:15 PM Dictation Location: [place] [address] Electronically authenticated by: [id number] Y Date: 4:15 Dictated By: Hermelindo [place] M.D. Signed By:02/19/25 1418 DD/ 1415 TD/TT: Appraiser Auditor: Authorizing ProviderResult TypeResult StatusCorey Joanna DOCLINISYNC IMAGINGFinal Result * (ABNORMAL) [facility] UA (CLEAN/CATCH) ENTRY LEVEL MARKETING REPRESENTATIVE/MICRO IF IND. (02/12/2025 4:00 PM EST) ComponentValueRef [...] Joanna DOCLINISYNCFinal Result Performing OrganizationAddressCity/State/ZIP CodePhone Number [facility] * ALL THYROID STIM HORMONE (02/05/2025 2:42 [...] StatusAbril Stone NPCLINISYNCFinal ResultPerforming OrganizationAddressCity/State/ZIP CodePhone Number [facility] * US OB follow up transabdominal approach [...] Padilla MD Authorizing ProviderResult TypeResult StatusAbril Stone NPIMNahun OB US PROCEDURESFinal Result * POCT urinalysis [...] Location / LateralityCollection Method / VolumeCollection TimeReceived DfssFlclm73/10/2025 8:40 AM EST Narrative Authorizing ProviderResult TypeResult StatusCoreemigdio Marshall DOPOINT OF CARE TEST ENTER/EDIT ORDERABLESFinal [...] 12:31 PM EDT Authorizing ProviderResult TypeResult StatusAmy Gladstone PALAB BLOOD ORDERABLES Final ResultPerforming OrganizationAddressCity/State/ZIP CodePhone Number [facility] * (ABNORMAL) GLUCOSE 1 HOUR (12/11/2024 9:34 AM EDT)ComponentValueRef RangeTest MethodAnalysis TimePerformed AtPathologist SignatureGLUCOSE 1 DRZZ151(H)<130 mg/dLTBHSpecimen (Source)Anatomical Location / LateralityCollection Method / VolumeCollection TimeReceived Time12/11/2024 9:34 AM EDT12/11/2024 10:16 AM EDT Narrative [facility] - 12/11/2024 10:57 AM EDT Authorizing ProviderResult TypeResult StatusAmy Brea PALAB BLOOD ORDERABLES Final ResultPerforming OrganizationAddressCity/State/ZIP CodePhone Number [facility] from Last 3 Months Insurance Care Teams Team MemberRelationshipSpecialtyStart DateEnd Date Carrillo White MD [address] [place] [address] PCP - GeneralInternal Medicine11/29/22
--- OUTSIDE RECORDS SUMMARY | 2025-03-07 13:25 | XMS_ITS | Encounter Summary ---
Author Organization [facility] Address [address] [place] [address] Care Team Providers Care Machine Scallop Cutter Name Role Phone Carrillo White MD Primary Care Provider [phone] Encounter Details DateTypeDepartmentCare Team (Latest Contact Info)Aqxiyaehgnn92/04/2025linisync Result Encounter NOMS External Department Unsolicited Santosh Marshall, DO [address] [facility] [place] [address] Social History Tobacco UseTypesPacks/DayYears UsedDateSmoking Tobacco: NeverAlcohol UseStandard Drinks/WeekCommentsYes0 (1 standard drink = 0.6 oz pure alcohol)occasional alcohol useEstimated Date of JbtpwmqiYiogazswJmn11/03/2026ased on last menstrual period of 06/16/2024Sex and Gender InformationValueDate RecordedSex Assigned at BirthNot on fileLegal TedTzocub88/15/2023 10:14 PM EDTGender IdentityNot on fileSexual OrientationNot on filedocumented as of this encounter Plan of Treatment Not on file documented as of this encounter Procedures Procedure NamePriorityDate/TimeAssociated DiagnosisCommentsHP CBC WITH PLATELET NO ARQSAMTYXFLNAetqkbd27/04/2025 3:05 AM EST [facility] DRUG SCREEN RAPID (URINE)Staxtvi7702/21/2025 2:35 AM EST documented in this encounter Results * (ABNORMAL) HMHP CBC WITH PLATELET NO DIFFERENTIAL (02/21/2025 3:05 AM EST) ComponentValueRef RangeTest MethodAnalysis TimePerformed AtPathologist SignatureTBH WBC11.4(H)4.0 - 11.0 10 3/uLTBHTBH RBC3.52(L)4.20 - 5.40 10 6/uL TBHTBH HGB10.6(L)12.0 - 16.0 g/dLTBHTBH HCT32.3(L)36.0 - 48.0 %TBHTBH MCV91.8 81.0 - 99.0 fLTBHTBH MCH30.126.7 - 34.0 pgTBHTBH MCHC32.829.9 - 35.2 g/dLTBH TBH RDW13.111.0 - 15.0 %TBHTBH BUD981287 - 450 10 3/uLTBHTBH MPV10.29.5 - 13.5 fLTBHSpecimen (Source)Anatomical Location / LateralityCollection Method / VolumeCollection TimeReceived Time02/21/2025 3:05 AM EST02/21/2025 3:09 AM EST Narrative [facility] - 02/21/2025 3:29 AM EST Authorizing ProviderResult TypeResult StatusCorey Joanna DOCLINISYNCFinal Result Performing OrganizationAddressCity/State/ZIP CodePhone Number [facility] * [facility] DRUG SCREEN RAPID (URINE) (02/21/2025 2:35 [...] Date Carrillo White MD [address] [place] [address] PCP - GeneralInternal Medicine11/29/22documented as of this encounter
--- OUTSIDE RECORDS SUMMARY | 2025-03-07 13:25 | XMS_ITS | Clinical Summary ---
Author Organization [facility] [place] [address] Care Team Providers Care Food Mixer Repairer Name Role Phone Carmita Jurado MD Unavailable [phone] Social History Tobacco UseTypesPacks/DayYears UsedDateSmoking Tobacco: Never Assessed CommentsUnknownSex and Gender InformationValueDate RecordedSex Assigned at Not on fileLegal IvzVputzw69/24/2025 11:11 AM ESTGender IdentityNot on file Sexual [...] Td or Tdap), 06/22/2010, 10/16/2003, Additional history xncafmKEXExdltmvbo00/28/2004, 01/26/19990506BzuUWEEKoghokgtt17/27/2016, 06/22/2010HIBAged OutNo longer eligible based on patient's age to complete this topicNirsevimabAged OutNo longer eligible based on patient's age to complete this topicPneumococcalAged OutNo longer eligible based on patient's age to complete this topicRotavirusAged OutNo longer eligible based on patient's age to complete this topic Insurance Care Teams Team MemberRelationshipSpecialtyStart DateEnd [place] [address] Attending ProviderMedical Clinical Genetics2/24/25
--- NOTE | 2025-03-07 13:27 | PC.NURSE ---
pt 2 WEEKS . c/o L knee pain and into L thigh. pulses present, pink/warm skin. <3 sec cap refill. denies feeling SOB. knee tender to walk on
[2025-03-07 13:39] LABS: Lactate/Lactic Acid 1.9 mmol/L (0.4-2.0)
[2025-03-07 13:45] LABS: Alanine Aminotransferase 34 U/L (14-59); Albumin Globulin Ratio 0.9; Albumin Level 3.4 g/dL (3.4-5.0); Alkaline Phosphatase 91 U/L (46-116); Anion Gap 12.9; Aspartate Amino Transferase 21 U/L (15-37); Blood Urea Nitrogen 6.0 mg/dL (7.0-18.0); Calcium 8.9 mg/dL (8.5-10.1); Carbon Dioxide 26.0 mmol/L (21.0-32.0); Chloride 105 mmol/L (98-107); Estimated GFR (African America >60 (>=60 mL/min/1.73m^2); Estimated GFR (Non-African Ame >60 (>=60 mL/min/1.73m^2); Globulin 3.8 g/dL; Glucose 110 mg/dL (74-106); Potassium 3.9 mmol/L (3.5-5.1); Sodium 140 mmol/L (136-145); Total Protein 7.2 g/dL (6.4-8.2)
--- NOTE | 2025-03-07 13:49 | ED_ITS ---
HPI - Extremity Problem General Chief complaint: Extremity Problem, Nontraumatic Stated complaint: L KNEE REDNESS Time Seen by Provider: 03/07/25 13:00 Source: patient Mode of arrival: walk-in Limitations: no limitations History of Present Illness HPI Narrative: 25-year-old female presenting to the ER with swelling in the medial aspect of the left leg mostly just on the medial aspect of the knee, that she noticed over the last few days as she already was evaluated by her primary care which she was provided with antibiotic, but the swelling continued to be there and she presented to the ER for evaluation, she mentioned itching and mild tenderness on exam. Patient have no difficulty breathing and no other concern and she is currently breast-feeding for her child Related Data Previous Rx's ?Medication ?Instructions ?Recorded diclofenac sodium 1 % topical gel 2 g topical BID #50 grams 03/07/25 (Voltaren Arthritis Pain) Allergies Allergy/AdvReac Type Severity Reaction Status Date / Time [place] nut Allergy Severe Anaphylaxis Verified 03/07/25 12:48 Review of Systems ROS Status of ROS 10 or more systems reviewed and unremark able except as noted in history and below PFSH PFSH Social History Highest level of school completed/degree received: high school graduate Little interest or pleasure in doing things: not at all Feeling down, depressed, or hopeless: not at all Exam Narrative Exam Narrative: Nurses notes and vital signs reviewed and patient is not hypoxic. General: Well-appearing and in no apparent distress. Cardiovascular: Regular Rate and Rhythm without murmur, gallop or rub. Respiratory: No accessory muscle use or respiratory distress. Lungs are clear to auscultation, no wheezing, rales or rhonchi Musculoskeletal: normal ROM, no calf or popliteal tenderness, on the medial aspect of the left knee the patient have a area of redness and induration that is almost 7 cm linear and it is almost similar to possible phlebitis of the vein. There is multiple varicose veins that are obvious and the patient does not have any tenderness upon palpation of the calf or the thigh and the patient have no vascular injury detected GI: Abdomen is soft, non-distended. Normal bowel sounds. No masses appreciated. No tenderness to palpation. No rebound, guarding, or rigidity noted. Neurological: A&O x4. No cranial nerve dysfunction observed. No truncal ataxia. Moves all extremities. Sensation intact. Psychiatric: Cooperative and interactive. Normal mood and affect. Constitutional Vital Signs, click to edit/add: Last Vital Signs Temp 97.8 F 03/07/25 12:48 Pulse 82 03/07/25 13:19 Resp 20 03/07/25 12:48 BP 106/69 03/07/25 14:53 Pulse Ox 98 03/07/25 12:48 Course Vital Signs Vital signs: Vital Signs Temperature 97.8 F 03/07/25 12:48 Pulse Rate 128 H 03/07/25 12:48 Respiratory Rate 20 03/07/25 12:48 Blood Pressure 119/89 03/07/25 12:48 Pulse Oximetry 98 03/07/25 12:48 Temperature 97.8 F 03/07/25 12:48 Pulse Rate 82 03/07/25 13:19 Respiratory Rate 20 03/07/25 12:48 Blood Pressure 106/69 03/07/25 14:53 Pulse Oximetry 98 03/07/25 12:48 MDM - Extremity (Nontraumatic) MDM Narrative Medical decision making narrative: The patient CBC and chemistry showed no acute pathology and I did Doppler EXTR rule out DVT was negative in the left leg although there was partially compressible varicose vein and with the patient presentation the concern was first of all to cover for phlebitis and with a history of breast-feeding the patient was given Voltaren twice daily for the next few days Patient was instructed about the importance of monitoring as in case of extension or worsening the patient to come back to the ER Also in case of any shortness of breath nausea vomiting or any other concerns and the patient was instructed about the importance of follow-up with the primary care within few days for reevaluation. I did explain to her that we do not do anticoagulation usually for superficial phlebitis but in case of continuation with a symptom and progression she definitely have to be reevaluated within few days The patient understand the plan and she is agreeable with it The patient to follow-up with the primary care within 2 to 3 days and to come back to the ER in case of any worsening of the current symptoms or any new symptoms or concerns Lab Data Labs: Lab Results 03/07/25 Range/Units 13:01 WBC 5.7 (4.0-11.0) 10^3/uL RBC 4.24 (4.20-5.40) 10^6/uL Hgb 12.6 (12.0-16.0) g/dL Hct 39.0 (36.0-48.0) % MCV 92.0 (81.0-99.0) fL MCH 29.7 (26.7-34.0) pg MCHC 32.3 (29.9-35.2) g/dL RDW 13.7 (11.0-15.0) % Plt Count 335 (150-450) 10^3/uL MPV 10.1 (9.5-13.5) fL Neut % (Auto) 59.9 (43.0-75.0) % Lymph % (Auto) 31.2 (20.5-60.0) % [place] % (Auto) 6.3 (1.7-12.0) % Eos % (Auto) 1.7 (0.9-7.0) % Baso % (Auto) 0.7 (0.2-2.0) % Neut # (Auto) 3.4 (1.4-6.5) 10^3/uL Lymph # (Auto) 1.8 (1.2-3.8) 10^3/uL [place] # (Auto) 0.4 (0.3-0.8) 10^3/uL Eos # (Auto) 0.1 (0.0-0.7) 10^3/uL Baso # (Auto) 0.0 (0.0-0.1) 10^3/uL Abs Immat Gran (auto) 0.01 (0.00-0.03) 10^3/uL Imm/Tot Granulo (auto) 0.2 (0.0-0.5) % Sodium 140 (136-145) mmol/L Potassium 3.9 (3.5-5.1) mmol/L Chloride 105 (98-107) mmol/L Carbon Dioxide 26.0 (21.0-32.0) mmol/L Anion Gap 12.9 BUN 6.0 L (7.0-18.0) mg/dL Creatinine 0.74 (0.55-1.02) mg/dL Est GFR ( Amer) >60 (>=60 mL/min/1.73m^2) Est GFR (Non-Af Amer) >60 (>=60 mL/min/1.73m^2) BUN/Creatinine Ratio 8.1 Glucose 110 H (74-106) mg/dL Lactate 1.9 (0.4-2.0) mmol/L Calcium 8.9 (8.5-10.1) mg/dL Total Bilirubin 0.3 (0.2-1.0) mg/dL AST 21 (15-37) U/L ALT 34 (14-59) U/L Alkaline Phosphatase 91 (46-116) U/L Total Protein 7.2 (6.4-8.2) g/dL Albumin 3.4 (3.4-5.0) g/dL Globulin 3.8 g/dL Albumin/Globulin Ratio 0.9 Discharge Plan Discharge Chief Complaint: Extremity Problem, Nontraumatic Clinical Impression: Superficial thrombophlebitis Patient Disposition: Home, Self-Care Time of Disposition Decision: 14:38 Condition: Good Prescriptions / Home Meds: New diclofenac sodium [Voltaren Arthritis Pain] 1 % gel 2 g topical BID Qty: 50 0RF Rx Instructions: apply to single elbow, wrist or hand; for hand includes palm/fingers/back of hand Print Language: Malay Instructions: Phlebitis (ED) Additional Instructions: Please make sure that you follow-up with the primary care within few days for further evaluation in case another treatment needed Referrals: STACI MILES MD [Primary Care Provider] - 1 week Discharge Date/Time: 03/07/25 14:57
[2025-03-07 14:53] VITALS: BP 106/69
== END 2025-03-07 14:57 | disposition home or self-care (01) ==
PROVIDERS: Emergency Provider Emergency Medicine; PCP Internal Medicine
DX: I80.02 Phlebitis and thrombophlebitis of superficial vessels of left lower extremity (principal)
CPT/HCPCS: 36415; 80053; 83605; 85025; 93971; 99284